=== PATIENT | female | born 1975 | race Caucasian/White ===

== ENCOUNTER 2016-05-01 13:15 | Outpatient (RCR) | payer SELFPAY ==
--- OUTSIDE RECORDS SUMMARY | 2016-03-31 13:38 | XMS REPORT | Continuity of Care Document ---
Author Author [facility] Organization [facility] Address Unknown Phone Unavailable Care Team Providers Care Parking Attendant Name Role Phone LOUISE COBOS MD PCP Insurance Providers Payer Name Policy Number Subscriber Name Relationship Unknown Ct Sloan Brandyn 18 Self / Same As Patient Advance Directives Directive Response Recorded Date/Time Advance Directives No 03/04/16 3:25pm Health Care Power of Asphalt Roller Operator No 03/04/16 3:25pm Organ Donor No 03/04/16 3:25pm Resuscitation Status Full Code 03/04/16 3:25pm Chief Complaint and Reason for Visit Chief Complaint General Problems/Pain Reason for Visit [id number] Problems Active Problems Medical Problem Onset Date Status Contact dermatitis Unknown Acute Hypokalemia Unknown Acute Hypomagnesemia Unknown Acute Left leg paresthesias Unknown Acute Low back strain Unknown Acute Lumbar radiculopathy, chronic Unknown Acute Postoperative seroma Unknown Acute Syncope Unknown Acute Syncope Unknown Acute Medications Current Home Medications Medication Dose Units Route Directions Days/Qty Instructions Start Date Aspirin 81 Mg 81 Mg Oral Daily 07/09/10 Rosuvastatin Calcium 20 Mg 20 Mg Oral Daily 07/09/10 Lamotrigine 150 Mg 150 Mg Oral Daily 07/09/10 Liraglutide 0.6 Mg/0.1 Ml 1.8 Mg Subcutaneously Bedtime 04/15/11 Citalopram Hydrobromide 20 Mg 1 Each Oral Twice A Day 01/25/12 Rabeprazole Sodium 20 Mg 20 Mg Oral Daily 01/25/12 Aripiprazole 2 Mg 5 Mg Oral Bedtime 09/15/12 Losartan Potassium 25 Mg 1 Each Oral Twice A Day 09/15/12 Hum Insulin Nph/Reg Insulin Hm 10 Ml 95 Units Sub-Q Twice A Day Pioglitazone Hcl 45 Mg 45 Mg Oral Daily 07/12/13 Celecoxib 200 Mg 20 Mg Oral Twice A Day 10/28/13 Orphenadrine Citrate 100 Mg 100 Mg Oral Every 4HRS as needed for Pain 10/28/13 Naproxen 500 Mg 1 Each Oral Twice A Day as needed for Pain 20 FOR PAIN 10/28/13 Hydrocodone Bit/Acetaminophen 1 Tab 1-2 Tab Oral Every 6 Hours as needed for Pain 5 10/28/13 Amoxicillin 500 Mg 28 11/12/15 Hydrocodone/Acetaminophen 1 Each 1 Each Oral Every 4HRS as needed for Pain 14 11/12/15 Tramadol Hcl 50 Mg 50 Mg Oral Every 6 Hours as needed for Pain 10 10/11 Past Home Medications Medication Directions Ordered Status Insulin Human Nph 10 Unit/0.1 Ml Susp, 10 Units Sub-Q Before Meals 07/09/10 Discontinued Sitagliptin Phosphate 100 Mg Tablet, 100 Mg Oral Daily 07/09/10 Discontinued Escitalopram Oxalate 20 Mg Tablet, 20 Mg Oral Daily 07/09/10 Discontinued Lisinopril 40 Mg Tablet, 40 Mg Oral Daily 07/09/10 Discontinued Topiramate 25 Mg Tab, 50 Mg Oral Daily 07/09/10 Discontinued [Trihexyphenidyl2 Mg] , 07/09/10 Discontinued Alprazolam 0.5 Mg Tablet, 0.25 Mg Oral As Needed 07/09/10 Discontinued Insulin Detemir 100 Unit/1 Ml Vial, 60 Units Sub-Q Twice A Day 07/09/10 Discontinued Trihexyphenidyl Hcl 2 Mg Tab, 1 Tab Oral Daily 04/15/11 Discontinued Insulin Aspart 10 Unit/0.1 Ml Vial, 25 Units Subcutaneously Before Meals 15/03 Discontinued Ranitidine Hcl 150 Mg Tablet, 1 Tab Oral Twice A Day 04/16/11 Discontinued Sucralfate 1 Gm Tab, 1 Gm Oral Three Times A Day 04/16/11 Discontinued Lamotrigine 150 Mg Tablet, 1 Each Oral Daily 01/25/12 Discontinued Acetaminophen/Hydrocodone Bitart 1 Each Tablet, 1 - 2 Each Oral Every 6 Hours as needed 01/25/12 Discontinued Naproxen 500 Mg Tablet, 1 Each Oral Twice A Day as needed 01/25/12 Discontinued Gabapentin 100 Mg Cap, 100 Mg Oral Bedtime 09/15/12 Discontinued Ciprofloxacin 500 Mg Tablet, 1 Tab Oral Twice A Day 09/15/12 Discontinued Hydrocodone Bit/Acetaminophen 1 Each Tablet, 1 Ea Oral Every 6 Hours as needed for Mild Pain 07/12/13 Discontinued Prednisone 20 Mg Tab, 40 Mg Oral Daily 07/12/13 Discontinued Social History Social History Problem Response Recorded Date/Time Alcohol Use Denies Use 06/06/2015 8:37pm Recreational Drug Use No 06/06/2015 8:37pm Recent Foreign Travel No 2016 3:25pm Recent Infectious Disease Exposure No 2016 3:25pm Hospitalization with Isolation Denies 2016 3:25pm Sexually Transmitted Disease No 2016 3:25pm HIV/AIDS No 2016 3:25pm Smoking Status Never a Smoker 2016 3:25pm Recent Hopitalizations No 2016 3:25pm Sexually Transmitted Disease No 2016 3:25pm Hospitalization with Isolation Denies 2016 3:25pm Query Response Start Date Stop Date Smoking Status Never a Smoker Hospital Discharge Instructions No hospital discharge instructions. Plan of Care Discharge Date 03/04/16 4:06pm Disposition 01 HOME, SELF-CARE Condition at Discharge Stable Instructions/Education Provided Paresthesias (DC) Prescriptions See Medication Section Referrals BEVERLY TAO - Primary Care Physician LOUISE COBOS MD - Primary Care Physician Additional Instructions/Education 1. Return to ER for any concerns 2. Follow-up with your doctor next week 3. All discharge instructions reviewed with patient and/or family. Voiced understanding. Functional Status No functional status results. Allergies, Adverse Reactions, Alerts Allergen Type Severity Reaction Status Last Updated prednisone ([id number]) Adverse Reaction Unknown RAISES BLOOD SUGAR Active 10/28/13 azithromycin ([id number]) Allergy Unknown Active 10/28/13 Immunizations No immunization records. Vital Signs Acute Vital Signs Vital Response Date/Time Temperature (Fahrenheit) 97.8 degrees F (97.6 - 99.5) 2016 4:02pm Temperature (Calculated Celsius) 36.65184 degrees C (36.4 - 37.5) 2016 4:02pm Temperature Source Temporal 2016 4:02pm Pulse Rate (adult) 108 bpm (60 - 90) 2016 4:02pm Respiratory Rate 20 bpm (12 - 24) 2016 4:02pm O2 Sat by Pulse Oximetry 94 % (88 - 100) 2016 4:02pm Blood Pressure 129/79 mm Hg 2016 4:02pm Blood Pressure Mean 96 mm Hg 2016 3:25pm Pain Numeric Pain Scale 10-Worst Possible Pain 2016 4:02pm Pain Numeric Pain Scale 10-Worst Possible Pain 2016 4:02pm Height (Feet) 5 feet 2016 3:25pm Height (Inches) 2 inches 2016 3:25pm Height (Calculated Centimeters) 157.894357 cm 2016 3:25pm Weight (Pounds) 200 pounds 2016 3:25pm Weight (Calculated Kilograms) 90.160602 kilograms 2016 3:25pm Capillary Refill Capillary Refill Less Than 3 Seconds 2016 3:25pm Height 5 ft 2 in Weight 200 lb Body Mass Index 36.6 kg/m^2 Results No known relevant diagnostic tests, laboratory data and/or discharge summary. Procedures Procedure Status Date Provider(s) Tracing only of electrocardiogram Active 03/04/16 SOCO JOAQUIN APRN Encounters Encounter Location Arrival/Admit Date Discharge/Depart Date Attending Provider Departed Emergency Room [facility] 03/04/16 3:06pm 03/04 4:06pm SOCO JOAQUIN APRN Recent Diagnosis
[~2016-05-01 13:15] MED LIST: ACHD5005 PO; ALPR.5T PO; AMOX500C2; ARIP2TAB3 PO; ASPI-892 PO; CLCX200C PO; CPR500T PO; CTLP20T PO; ESCI20TA2 PO; GBPN100C PO; HUM100VI4 SQ; HYDR-1231 PO; HYDR-3812 PO; HYDR-757 PO; INSASP10V SC; INSU100V11 SQ; INSU100V5 SQ; LAMO150T3 PO; LIRA0.6P SC; LISI40TA PO; LOSA25TA15 PO; NAPR-243 PO; ORPH100T PO; PIOG45TA PO; PRD20T PO; RABE20TA PO; RNT150T PO; ROSU20TA14 PO; SCR1T1 PO; SITA100T PO; TPR25T PO; TRAM-42 PO; TRH2T; TRH2T PO
== END 2016-05-01 14:15 | disposition home or self-care (01) ==
PROVIDERS: ATTEND Pain Medicine Pain Medicine
DX: M54.5 Low back pain (principal)

== ENCOUNTER → 2016-05-22 | Outpatient (CLI) | payer OTHER ==
[~2016-05-22] MED LIST changes: +CEFU500T63 PO
--- OUTSIDE RECORDS SUMMARY | 2016-05-22 10:24 | XMS REPORT | Continuity of Care Document ---
Author Author [facility] Organization [facility] Address Unknown Phone Unavailable Care Team Providers Care Internal Combustion Engineer Name Role Phone LOUISE COBOS MD PCP Insurance Providers Payer Name Policy Number Subscriber Name Relationship Unknown Ct Sloan Brandyn 18 Self / Same As Patient Advance Directives Directive Response Recorded Date/Time Advance Directives No 03/04/16 3:25pm Health Care Power of Paid Intern No 03/04/16 3:25pm Organ Donor No 03/04/16 3:25pm Resuscitation Status Full Code 03/04/16 3:25pm Chief Complaint and Reason for Visit Chief Complaint General Problems/Pain Reason for Visit [id number] Problems Active Problems Medical Problem Onset Date [...] Type Severity Reaction Status Last Updated prednisone ([id number]) Adverse Reaction Unknown RAISES BLOOD SUGAR Active 10/28/13 azithromycin ([id number]) Allergy Unknown Active 10/28/13 Immunizations No immunization records. Vital Signs Acute Vital Signs Vital Response Date/Time Temperature (Fahrenheit) 97.8 degrees F (97.6 - 99.5) 2016 4:02pm Temperature (Calculated Celsius) 36.05125 degrees C (36.4 - 37.5) 2016 4:02pm [...] 2 inches 2016 3:25pm Height (Calculated Centimeters) 157.748026 cm 2016 3:25pm Weight (Pounds) 200 pounds 2016 3:25pm Weight (Calculated Kilograms) 90.284817 kilograms 2016 3:25pm Capillary Refill Capillary Refill [...] Date Attending Provider Departed Emergency Room [facility] 03/04/16 3:06pm 03/04 4:06pm SOCO JOAQUIN APRN Recent Diagnosis
--- NOTE | 2016-05-22 19:01 | Diagnostic Imaging Report ---
Digital mammogram bilateral screening. This study was compared to the prior exams of 05/15/2015, 05/15/2014, and 03/28/2013. At this time, there are no current complaints. The current study was also evaluated with a Computer Aided Detection (CAD) system. FINDINGS: There are scattered fibroglandular densities in both breasts which could obscure a lesion. Overall, there does not appear to have been any significant change when compared to the prior exam. No primary or secondary sign of malignancy is noted. IMPRESSION: There is no radiographic evidence for malignancy. ACR BI-RADS Category 2: Benign findings. Result letter will be mailed to the patient. Note: At least 10% of breast cancer is not imaged by mammography. Dictated by: Dictated on workstation # [id number]
== END ==
LOC: RAD 10:19
PROVIDERS: ATTEND Nurse Practitioner Community Health
DX: Z12.31 Encounter for screening mammogram for malignant neoplasm of breast (principal)
CPT/HCPCS: 77067

== ENCOUNTER 2016-06-02 11:45 | Emergency (ER) | payer SELFPAY ==
[~2016-06-02] VITALS: Ht 157.5 cm; Wt 92.5 kg
[~2016-06-02 11:45] MED LIST changes: -CEFU500T63 PO
--- OUTSIDE RECORDS SUMMARY | 2016-06-02 11:51 | XMS REPORT | Continuity of Care Document ---
Author Author [facility] Organization [facility] Address Unknown Phone Unavailable Care Team Providers Care Panel Fitter Name Role Phone LOUISE COBOS MD PCP Insurance Providers Payer Name Policy Number Subscriber Name Relationship Unknown Ct Sloan Brandyn 18 Self / Same As Patient Advance Directives Directive Response Recorded Date/Time Advance Directives No 03/04/16 3:25pm Health Care Power of Talent Acquisition Coordinator No 03/04/16 3:25pm Organ Donor No 03/04/16 3:25pm Resuscitation Status Full Code 03/04/16 3:25pm Chief Complaint and Reason for Visit Chief Complaint General Problems/Pain Reason for Visit [id number] Problems Active Problems Medical Problem Onset Date [...] Type Severity Reaction Status Last Updated prednisone ([id number]) Adverse Reaction Unknown RAISES BLOOD SUGAR Active 10/28/13 azithromycin ([id number]) Allergy Unknown Active 10/28/13 Immunizations No immunization records. Vital Signs Acute Vital Signs Vital Response Date/Time Temperature (Fahrenheit) 97.8 degrees F (97.6 - 99.5) 2016 4:02pm Temperature (Calculated Celsius) 36.67387 degrees C (36.4 - 37.5) 2016 4:02pm [...] 2 inches 2016 3:25pm Height (Calculated Centimeters) 157.769088 cm 2016 3:25pm Weight (Pounds) 200 pounds 2016 3:25pm Weight (Calculated Kilograms) 90.368796 kilograms 2016 3:25pm Capillary Refill Capillary Refill [...] Date Attending Provider Departed Emergency Room [facility] 03/04/16 3:06pm 03/04 4:06pm SOCO JOAQUIN APRN Recent Diagnosis
--- NOTE | 2016-06-02 11:53 | ED Abdominal Pain ---
General Stated Complaint: UPPER ABD PAIN Source of Information: Patient Exam Limitations: No Limitations History of Present Illness Time Seen By Provider: 11:52 Initial Comments To ER with a three-day history of epigastric abdominal pain worsened by food. No vomiting. She's had some diarrhea. She does to have her gallbladder. She ate just about an hour prior to arrival here. No fevers or chills. Timing/Duration: 1-2 Days Severity/Quality: Sharp Location: Epigastric Radiation: No Radiation Activities at Onset: None Associated Symptoms: Denies Symptoms Allergies and Home Medications Allergies Coded Allergies: azithromycin (Unverified Allergy, Unknown, 10/28/13) CHEST PAIN prednisone (Unverified Adverse Reaction, Unknown, RAISES BLOOD SUGAR, ) Home Medications Amoxicillin 500 Mg Capsule #28 (Reported) Aripiprazole 2 Mg Tablet 5 MG PO HS (Reported) Aspirin 81 Mg Tabec 81 MG PO DAILY (Reported) Celecoxib 200 Mg Capsule 20 MG PO BID (Reported) Citalopram Hydrobromide 20 Mg Tablet 1 EACH PO BID (Reported) Hum Insulin Nph/Reg Insulin Hm 10 Ml Vial 95 UNITS SQ BID (Reported) Hydrocodone Bit/Acetaminophen 1 Tab Tablet #5 1-2 TAB PO Q6H PRN PRN PAIN Prescribed by: SOCO JOAQUIN on 10/28/13 1151 Hydrocodone/Acetaminophen 1 Each Tablet #14 1 EACH PO Q4H PRN PRN PAIN Prescribed by: ANGIE MAS on 11/12/15 1600 Lamotrigine 150 Mg Tablet 150 MG PO DAILY (Reported) Liraglutide 0.6 Mg/0.1 Ml Pen.injctr 1.8 MG SC HS (Reported) Losartan Potassium 25 Mg Tablet 1 EACH PO BID (Reported) Naproxen 500 Mg Tablet #20 1 EACH PO BID PRN PRN PAIN FOR PAIN Prescribed by: SOCO JOAQUIN on 10/28/13 1151 Orphenadrine Citrate 100 Mg Tablet.sa 100 MG PO Q4H PRN PRN PAIN (Reported) Pioglitazone Hcl 45 Mg Tablet 45 MG PO DAILY (Reported) Rabeprazole Sodium 20 Mg Tablet.dr 20 MG PO DAILY (Reported) Rosuvastatin Calcium 20 Mg Tablet 20 MG PO DAILY (Reported) Tramadol HCl 50 Mg Tablet #10 50 MG PO Q6H PRN PRN PAIN Prescribed by: SOCO JOAQUIN on 03/04/16 1541 Review of Systems Constitutional: see HPINo chills, No fever EENTM: No Symptoms Reported Respiratory: No Symptoms Reported Cardiovascular: No Symptoms Reported Gastrointestinal: See HPI Abdominal Pain Diarrhea Nausea Genitourinary: No Symptoms Reported Musculoskeletal: no symptoms reported Skin: no symptoms reported Psychiatric/Neurological: No Symptoms Reported Endocrine: No Symptoms Reported Hematologic/Lymphatic: No Symptoms Reported Past Qknfcit-Ievpvi-Dsyxkp Hx Patient Social History Recent Foreign Travel: No Contact w/Someone Who Travel: No Recent Hopitalizations: No Immunizations Up To Date Tetanus Booster (TDap): More than 5yrs PED Vaccines UTD: Yes Date of Pneumonia Vaccine: Mar 29, 2008 Date of Influenza Vaccine: Jan 27, 2014 Seasonal Allergies Seasonal Allergies: Yes Surgeries HX Surgeries: Yes (Carpal Tunnel bilat, HERNIA REPAIR) Surgeries: Section Respiratory Hx Respiratory Disorders: No Cardiovascular Hx Cardiac Disorders: Yes Cardiac Disorders: High Cholesterol Neurological Hx Neurological Disorders: Yes Neurological Disorders: Headaches /Migraines Reproductive System Hx Reproductive Disorders: No Sexually Transmitted Disease: No HIV/AIDS: No Genitourinary Hx Genitourinary Disorders: No ( ) Gastrointestinal Hx Gastrointestinal Disorders: Yes Gastrointestinal Disorders: Abdominal Hernia, Irritable Bowel Musculoskeletal Hx Musculoskeletal Disorders: Yes Musculoskeletal Disorders: Arthritis, Chronic Back Pain Endocrine Hx Endocrine Disorders: Yes (Type II, 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, Insulin dep HEENT HX ENT Disorders: No Cancer Hx Cancer: No Psychosocial Hx Psychiatric Problems: Yes Behavioral Health Disorders: Anxiety, Bipolar, Personality Disorder, Depression Integumentary HX Skin/Integumentary Disorder: No Blood Transfusions Hx Blood Disorders: No Adverse Reaction to a Blood Tr: No Family Medical History Significant Family History: No Pertinent Family Hx Family Medial History: Alcoholism 19 FATHER Arthritis 19 MOTHER Cataracts 19 MOTHER Diabetes mellitus 19 FATHER 19 MOTHER FH: stroke 19 FATHER Hypercholesterolemia 19 MOTHER Hypertension 19 MOTHER No Family History of: Cardiovascular disease Glaucoma Osteoporosis Prostate cancer Physical Exam Vital Signs VS - Last 72 Hours, by Label 06/02/16 11:53 Temp 98.5 Pulse 101 Resp 49 B/P 151/47 O2 Delivery Room Air Capillary Refill : General Appearance: WD/WN no apparent distress HEENT: PERRL/EOMI normal ENT inspection Neck: non-tender full range of motion Respiratory: normal breath sounds no respiratory distress no accessory muscle use Cardiovascular: regular rate, rhythm no murmur Gastrointestinal: normal bowel sounds soft tenderness (epigastric) Extremities: normal range of motion non-tender Neurologic/Psychiatric: alert normal mood/affect oriented x 3 Skin: normal color warm/dry Progress/Results/Core Measures Results/Orders Lab Results Laboratory Tests Test 06/02/16 11:55 06/02/16 12:40 Range/Units Urine Bacteria MODERATE H /HPF Urine Bilirubin NEGATIVE NEGATIVE Urine Casts NONE /LPF Urine Clarity VERY CLOUDY H Urine Color YELLOW Urine Crystals NONE /LPF Urine Culture Indicated YES Urine Glucose (UA) 4+ H NEGATIVE Urine Ketones 4+ H NEGATIVE Urine Leukocyte Esterase 2+ H NEGATIVE Urine Mucus NEGATIVE /LPF Urine Nitrite POSITIVE H NEGATIVE Urine Protein 2+ H NEGATIVE Urine RBC TNTC H /HPF Urine RBC (Auto) 5+ H NEGATIVE Urine Specific [place] 1.010 L 1.016-1.022 Urine Squamous Epithelial Cells NONE /HPF Urine Urobilinogen NORMAL NORMAL MG/DL Urine WBC 25-50 H /HPF Urine pH 5 5-9 Alanine Aminotransferase (ALT/SGPT) 22 0-55 U/L Albumin 3.9 3.2-4.5 G/DL Alkaline Phosphatase 106 40-136 U/L Amylase Level 13 L 25-125 U/L Anion Gap 14 5-14 MMOL/L Aspartate Amino Transf (AST/SGOT) 15 5-34 U/L BUN/Creatinine Ratio 15 Basophils # (Auto) 0.1 0.0-0.1 10^3/uL Basophils (%) (Auto) 1 0-10 % Blood Urea Nitrogen 11 7-18 MG/DL Calcium Level 9.0 8.5-10.1 MG/DL Carbon Dioxide Level 18 L 21-32 MMOL/L Chloride Level 104 98-107 MMOL/L Creatinine 0.72 0.60-1.30 MG/DL Eosinophils # (Auto) 0.2 0.0-0.3 10^3/uL Eosinophils (%) (Auto) 2 0-10 % Estimat Glomerular Filtration Rate > 60 Glucose Level 422 *H 70-105 MG/DL Hematocrit 42 35-52 % Hemoglobin 14.6 11.5-16.0 G/DL Lipase 41 8-78 U/L Lymphocytes # (Auto) 2.7 1.0-4.0 X 10^3 Lymphocytes (%) (Auto) 30 12-44 % Mean Corpuscular Hemoglobin 29 25-34 PG Mean Corpuscular Hemoglobin Concent 35 32-36 G/DL Mean Corpuscular Volume 82 80-99 FL Mean Platelet Volume 10.4 7.4-10.4 FL Monocytes # (Auto) 0.6 0.0-1.0 X 10^3 Monocytes (%) (Auto) 7 0-12 % Neutrophils # (Auto) 5.4 1.8-7.8 X 10^3 Neutrophils (%) (Auto) 60 42-75 % Platelet Count 249 130-400 10^3/uL Potassium Level 4.0 3.6-5.0 MMOL/L Red Blood Count 5.11 4.35-5.85 10^6/uL Red Cell Distribution Width 13.3 10.0-14.5 % Sodium Level 136 135-145 MMOL/L Total Bilirubin 0.3 0.1-1.0 MG/DL Total Protein 7.3 6.4-8.2 G/DL White Blood Count 9.0 4.3-11.0 10^3/uL My Orders Orders-SOCO JOAQUIN APRN Ua Culture If Indicated (06/02/16 11:51) Cbc With Automated Diff (06/02/16 11:51) Urine Bedside (06/02/16 11:51) Lipase (06/02/16 11:51) Amylase (06/02/16 11:51) Comprehensive Metabolic Panel (06/02/16 11:51) Antacid Suspension (Mylanta Suspension (06/02/16 12:00) Lidocaine 2% Viscous 15 Ml (Xylocaine Vi (06/02/16 12:00) Urine Culture (06/02/16 11:55) Medications Given in ED Current Medications Medications Dose Ordered Sig/Ernesto Route Start Time Stop Time Status Last Admin Dose Admin Al Hydrox/Mg Hydrox/Simethicone 30 ml ONCE ONCE PO 06/02/16 12:00 06/02/16 12:01 DC 06/02/16 12:41 30 ML Lidocaine HCl 15 ml ONCE ONCE PO 06/02/16 12:00 06/02/16 12:01 DC 06/02/16 12:41 15 ML Vital Signs/I&O Vital Sign - Last 12Hours 06/02/16 11:53 Temp 98.5 Pulse 101 Resp 49 B/P 151/47 O2 Delivery Room Air Departure Impression Impression: Primary Impression: Urinary tract infection Additional Impression: Hyperglycemia Disposition: 01 HOME, SELF-CARE Condition: Stable Departure-Patient Inst. Decision time for Depature: 13:12 Referrals: [facility] (PCP/Family) Primary Care Physician Patient Instructions: Hyperglycemia, Adult, Urinary Tract Infection, Adult (DC) Add. Discharge Instructions: 1. Drink plenty of fluids 2. Check your blood sugars frequently at home and use your insulin accordingly to your sliding scale 3. Antibiotics as directed Scripts Cefuroxime Axetil (Cefuroxime)500 Mg [id number] Mg PO BID #14 TAB Prov:SOCO JOAQUIN APRN 06/02/16 SOCO JOAQUIN APRN Jun 02, 2016 11:53
[2016-06-02] MEDS ORDERED: ANTACID SUSP 30 ML UDC (MYLANTA) PO ONE (12:00)
[2016-06-02] MEDS ORDERED: LIDOCAINE 2% VISCOUS 15 ML UDC PO ONE (12:00)
[2016-06-02 12:07] LABS: BILIRUBIN,URINE NEGATIVE (NEGATIVE); KETONES,URINE 4+ (NEGATIVE); LEUKOCYTE ESTERASE ,URINE 2+ (NEGATIVE); NITRITE,URINE POSITIVE (NEGATIVE); PH,URINE 5 (5-9); PROTEIN,URINE 2+ (NEGATIVE); UROBILINOGEN,URINE NORMAL (NORMAL)
[2016-06-02 12:18] LABS: WBC,URINE 25-50 /HPF
[2016-06-02 12:46] LABS: BASOPHILS # (AUTO) 0.1 10^3/uL (0.0-0.1); BASOPHILS % (AUTO) 1 % (0-10); EOSINOPHILS # (AUTO) 0.2 10^3/uL (0.0-0.3); EOSINOPHILS % (AUTO) 2 % (0-10); LYMPHOCYTES # (AUTO) 2.7 X 10^3 (1.0-4.0); LYMPHOCYTES % (AUTO) 30 % (12-44); MEAN CORPUSCULAR HEMOGLOBIN 29 PG (25-34); MEAN CORPUSCULAR HGB CONC 35 G/DL (32-36); MEAN CORPUSCULAR VOLUME 82 FL (80-99); MEAN PLATELET VOLUME 10.4 FL (7.4-10.4); MONOCYTES # (AUTO) 0.6 X 10^3 (0.0-1.0); MONOCYTES % (AUTO) 7 % (0-12); NEUTROPHILS # (AUTO) 5.4 X 10^3 (1.8-7.8); NEUTROPHILS % (AUTO) 60 % (42-75); PLATELET COUNT 249 10^3/uL (130-400); RED BLOOD COUNT 5.11 10^6/uL (4.35-5.85); RED CELL DISTRIBUTION WIDTH 13.3 % (10.0-14.5)
[2016-06-02 13:05] LABS: ALANINE AMINOTRANSFERASE 22 U/L (0-55); ALBUMIN 3.9 G/DL (3.2-4.5); AMYLASE 13 U/L (25-125); ANION GAP 14 MMOL/L (5-14); ASPARTATE AMINO TRANSFERASE 15 U/L (5-34); BILIRUBIN,TOTAL 0.3 MG/DL (0.1-1.0); BLOOD UREA NITROGEN 11 MG/DL (7-18); BUN/CREATININE RATIO 15; CARBON DIOXIDE 18 MMOL/L (21-32); CHLORIDE 104 MMOL/L (98-107); CREATININE SERUM 0.72 MG/DL (0.60-1.30); GFR ESTIMATED > 60; LIPASE 41 U/L (8-78); SODIUM 136 MMOL/L (135-145); TOTAL PROTEIN 7.3 G/DL (6.4-8.2)
[2016-06-02 13:10] LABS: GLUCOSE 422 MG/DL (70-105)
[2016-06-02] MEDS ORDERED: CEFU500T63 PO (13:13)
[2016-06-02] MEDS ORDERED: inSUlin (REGULAR) HUMAN 1 UNIT/0.01 ML (CHARGE PER UNIT) SC ONE (13:15)
[2016-06-02 13:30] VITALS: BP 151/47
== END 2016-06-02 13:30 | disposition home or self-care (01) ==
LOC: EDUNIT# 11:45 → ER 11:47
DX: N39.0 Urinary tract infection, site not specified (principal); E11.65 Type 2 diabetes mellitus with hyperglycemia; Z79.82 Long term (current) use of aspirin; Z79.4 Long term (current) use of insulin; Z79.84 Long term (current) use of oral hypoglycemic drugs; Z79.899 Other long term (current) drug therapy
CPT/HCPCS: 36415; 80053; 81000; 82150; 83690; 85025; 87088; 87186; 96372; 99283

== ENCOUNTER 2016-06-25 11:01 | Outpatient (RCR) | payer SELFPAY ==
--- OUTSIDE RECORDS SUMMARY | 2016-06-02 14:49 | XMS REPORT | Continuity of Care Document ---
Author Author [facility] Organization [facility] Address Unknown Phone Unavailable Care Team Providers Care Administrative Office Assistant Name Role Phone LOUISE COBOS MD PCP Insurance Providers Payer Name Policy Number Subscriber Name Relationship Unknown Ct Sloan Brandyn 18 Self / Same As Patient Advance Directives Directive Response Recorded Date/Time Advance Directives No 03/04/16 3:25pm Health Care Power of Cyber Workforce Developer And Manager No 03/04/16 3:25pm Organ Donor No 03/04/16 3:25pm Resuscitation Status Full Code 03/04/16 3:25pm Chief Complaint and Reason for Visit Chief Complaint General Problems/Pain Reason for Visit [id number] Problems Active Problems Medical Problem Onset Date [...] Type Severity Reaction Status Last Updated prednisone ([id number]) Adverse Reaction Unknown RAISES BLOOD SUGAR Active 10/28/13 azithromycin ([id number]) Allergy Unknown Active 10/28/13 Immunizations No immunization records. Vital Signs Acute Vital Signs Vital Response Date/Time Temperature (Fahrenheit) 97.8 degrees F (97.6 - 99.5) 2016 4:02pm Temperature (Calculated Celsius) 36.36078 degrees C (36.4 - 37.5) 2016 4:02pm [...] 2 inches 2016 3:25pm Height (Calculated Centimeters) 157.408084 cm 2016 3:25pm Weight (Pounds) 200 pounds 2016 3:25pm Weight (Calculated Kilograms) 90.255624 kilograms 2016 3:25pm Capillary Refill Capillary Refill [...] Date Attending Provider Departed Emergency Room [facility] 03/04/16 3:06pm 03/04 4:06pm SOCO JOAQUIN APRN Recent Diagnosis
[~2016-06-25 11:01] MED LIST changes: +CEFU500T63 PO
== END 2016-07-15 09:25 | disposition home or self-care (01) ==
PROVIDERS: ATTEND Pain Medicine Pain Medicine
DX: M54.5 Low back pain (principal)

== ENCOUNTER 2016-08-14 10:19 | Emergency (ER) | payer SELFPAY ==
[~2016-08-14] VITALS: Ht 157.5 cm; Wt 92.5 kg
[2016-08-14] MEDS ORDERED: CYCL5TAB PO (11:09)
[2016-08-14] MEDS ORDERED: SIMV40TA4 PO (11:09)
--- NOTE | 2016-08-14 11:16 | ED Back Pain ---
General Chief Complaint: Back Problems Stated Complaint: BACK/LEG PAIN Nursing Triage Note: HX OF BACK SURGERY. STATES SHE NEEDS A SECOND SURGERY DONE. C/O BILAT LOWER LEG PAIN ET PRESSURE ET PAIN TO LOWER BACK. PT. STATES SHE IS OUT OF MUSCLE RELAXERS Nursing Sepsis Screen: No Definite Risk Source of Information: Patient Exam Limitations: No Limitations History of Present Illness Time Seen by Provider: 11:16 Initial Comments To ER with reports of low back pain. She is out of her Zanaflex because she cannot afford it. Pain radiates to both legs. No loss of bowel or bladder control. No fevers or chills. No saddle anesthesia. She is out of her Flexeril as a substitute for Zanaflex as well. No recent injuries. Location: Lumbar Spine Timing/Duration: 1-2 Days Severity: Moderate Associated Symptoms: lower back pain Allergies and Home Medications Allergies Coded Allergies: azithromycin (Unverified Allergy, Unknown, 10/28/13) CHEST PAIN prednisone (Unverified Adverse Reaction, Unknown, RAISES BLOOD SUGAR, ) Home Medications Aspirin 81 Mg Tabec, 81 MG PO DAILY, (Reported) Citalopram Hydrobromide 20 Mg Tablet, 1 EACH PO BID, (Reported) Cyclobenzaprine HCl 5 Mg Tablet, 5 MG PO DAILY, (Reported) Hum Insulin Nph/Reg Insulin Hm 10 Ml Vial, 95 UNITS SQ BID, (Reported) Lamotrigine 150 Mg Tablet, 150 MG PO DAILY, (Reported) Liraglutide 0.6 Mg/0.1 Ml Pen.injctr, 1.8 MG SC HS, (Reported) Losartan Potassium 25 Mg Tablet, 1 EACH PO BID, (Reported) Pioglitazone Hcl 45 Mg Tablet, 45 MG PO DAILY, (Reported) Rabeprazole Sodium 20 Mg Tablet.dr, 20 MG PO DAILY, (Reported) Simvastatin 40 Mg Tablet, 2 TAB PO DAILY, (Reported) Constitutional: see HPI EENTM: see HPI Respiratory: no symptoms reported Cardiovascular: no symptoms reported Genitourinary: no symptoms reported Musculoskeletal: see HPI, back pain Skin: no symptoms reported Psychiatric/Neurological: No Symptoms Reported Past Fyjwpsp-Nwzibz-Bwkadx Hx Patient Social History Alcohol Use: Denies Use Recreational Drug Use: No Smoking Status: Never a Smoker 2nd Hand Smoke Exposure: No Recent Foreign Travel: No Contact w/Someone Who Travel: No Recent Infectious Disease Expo: No Recent Hopitalizations: No Immunizations Up To Date Tetanus Booster (TDap): More than 5yrs PED Vaccines UTD: Yes Date of Pneumonia Vaccine: Mar 29, 2008 Date of Influenza Vaccine: Jan 27, 2014 Seasonal Allergies Seasonal Allergies: Yes Surgeries HX Surgeries: Yes (Carpal Tunnel bilat, HERNIA REPAIR) Surgeries: Section, Orthopedic Respiratory Hx Respiratory Disorders: No Cardiovascular Hx Cardiac Disorders: Yes Cardiac Disorders: High Cholesterol Neurological Hx Neurological Disorders: Yes Neurological Disorders: Headaches /Migraines Reproductive System Hx Reproductive Disorders: No Sexually Transmitted Disease: No HIV/AIDS: No Genitourinary Hx Genitourinary Disorders: No ( ) Gastrointestinal Hx Gastrointestinal Disorders: Yes Gastrointestinal Disorders: Abdominal Hernia, Irritable Bowel Musculoskeletal Hx Musculoskeletal Disorders: Yes Musculoskeletal Disorders: Arthritis, Chronic Back Pain Endocrine Hx Endocrine Disorders: Yes (Type II, 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, Insulin dep HEENT HX ENT Disorders: No Cancer Hx Cancer: No Psychosocial Hx Psychiatric Problems: Yes Behavioral Health Disorders: Anxiety, Bipolar, Personality Disorder, Depression Integumentary HX Skin/Integumentary Disorder: No Blood Transfusions Hx Blood Disorders: No Adverse Reaction to a Blood Tr: No Family Medical History Significant Family History: No Pertinent Family Hx Family Medial History: Alcoholism 19 FATHER Arthritis 19 MOTHER Cataracts 19 MOTHER Diabetes mellitus 19 FATHER 19 MOTHER FH: stroke 19 FATHER Hypercholesterolemia 19 MOTHER Hypertension 19 MOTHER No Family History of: Cardiovascular disease Glaucoma Osteoporosis Prostate cancer Physical Exam Vital Signs Vital Sign - Last 12Hours 08/14/16 10:58 Temp 97.8 Pulse 89 Resp 20 B/P (MAP) 123/58 O2 Delivery Room Air Capillary Refill : Less Than 3 Seconds General Appearance: No Apparent Distress, WD/WN, Obese HEENT: PERRL/EOMI, TMs Normal Neck: Full Range of Motion, Normal Inspection Respiratory: Normal Breath Sounds, No Accessory Muscle Use, No Respiratory Distress Gastrointestinal: Normal Bowel Sounds, Non Tender, Soft Extremity: Normal Capillary Refill, Normal Inspection Neurologic/Psychiatric: Alert, Oriented x3, No Motor/Sensory Deficits Skin: Normal Color, Warm/Dry Progress/Results/Core Measures Results/Orders Vital Signs/I&O Vital Sign - Last 12Hours 08/14/16 10:58 Temp 97.8 Pulse 89 Resp 20 B/P (MAP) 123/58 O2 Delivery Room Air Blood Pressure Mean: 79 Departure Impression Impression: Primary Impression: Back pain Disposition: 01 HOME, SELF-CARE Condition: Stable Departure-Patient Inst. Decision time for Depature: 11:20 Referrals: [facility] (PCP) Primary Care Physician BEVERLY TAO (Family) Primary Care Physician Patient Instructions: MANAGING YOUR CHRONIC PAIN, Low Back Pain (DC) Add. Discharge Instructions: 1. Medication as directed 2. Follow-up with her regular doctor later this week 3. Return to ER for any worsening All discharge instructions reviewed with patient and/or family. Voiced understanding. Scripts Hydrocodone/Acetaminophen ([place] 5-325 Tablet) 1 Each Tablet 1 EACH PO Q6H Y for PAIN-MODERATE, #14 TAB Prov: SOCO JOAQUIN APRN 08/14/16 SOCO JOAQUIN APRN August 14, 2016 11:16
[2016-08-14] MEDS ORDERED: HYDR-757 PO (11:21)
[2016-08-14] MEDS ORDERED: KETOROLAC 60 MG/2 ML VIAL IM ONE (11:30)
[2016-08-14] MEDS ORDERED: ORPHENADRINE 60 MG/2 ML (NORFLEX) AMP IM ONE (11:30)
[2016-08-14 11:50] VITALS: BP 123/58
== END 2016-08-14 11:53 | disposition home or self-care (01) ==
LOC: ER 10:19
DX: M54.5 Low back pain (principal); E11.9 Type 2 diabetes mellitus without complications; Z79.4 Long term (current) use of insulin; Z79.84 Long term (current) use of oral hypoglycemic drugs; Z79.82 Long term (current) use of aspirin; Z79.899 Other long term (current) drug therapy
CPT/HCPCS: 96372; 99281

== ENCOUNTER 2016-10-28 08:54 | Outpatient (RCR) | payer OTHER ==
[~2016-10-28 08:54] MED LIST changes: +CYCL5TAB PO; +SIMV40TA4 PO
== END 2016-10-28 09:50 | disposition home or self-care (01) ==
PROVIDERS: ATTEND Nurse Practitioner Community Health
DX: M54.9 Dorsalgia, unspecified (principal)

== ENCOUNTER 2017-05-13 01:24 | Emergency (ER) | payer SELFPAY ==
[~2017-05-13] VITALS: Ht 157.5 cm; Wt 81.6 kg
[~2017-05-13 01:24] MED LIST changes: -HYDR-3812 PO
--- NOTE | 2017-05-13 01:35 | ED EENT ---
History of Present Illness General Chief Complaint: Foreign Body Stated Complaint: LEFT EAR PAIN-BUG WAS IN EAR-HURTS Nursing Triage Note: pt reports she felt a bug in her left ear prior to arrival. she believes the bug is gone at this time. Source: patient Exam Limitations: no limitations History of Present Illness Date Seen by Provider: May 13, 2017 Time Seen by Provider: 01:28 Initial Comments Patient believes she had a bug in her left ear that exited in route to the hospital. At the time of check in at the registration desk she was still having discomfort in the left ear and still wanted to be evaluated. By the time of my exam the pain was significantly improved. Allergies and Home Medications Allergies Coded Allergies: azithromycin (Unverified Allergy, Unknown, 10/28/13) CHEST PAIN prednisone (Unverified Adverse Reaction, Unknown, RAISES BLOOD SUGAR, ) Home Medications Aspirin 81 Mg Tabec, 81 MG PO DAILY, (Reported) Citalopram Hydrobromide 20 Mg Tablet, 1 EACH PO BID, (Reported) Hum Insulin Nph/Reg Insulin Hm 10 Ml Vial, 110 UNITS SQ BID, (Reported) Lamotrigine 150 Mg Tablet, 150 MG PO DAILY, (Reported) Liraglutide 0.6 Mg/0.1 Ml Pen.injctr, 1.8 MG SC HS, (Reported) Losartan Potassium 25 Mg Tablet, 1 EACH PO BID, (Reported) Pioglitazone Hcl 45 Mg Tablet, 45 MG PO DAILY, (Reported) Simvastatin 40 Mg Tablet, 2 TAB PO DAILY, (Reported) Review of Systems Constitutional: no symptoms reported Ears: See HPI Past Bddagho-Rtjayu-Jgwxgs Hx Patient Social History Alcohol Use: Denies Use Recreational Drug Use: No Smoking Status: Never a Smoker 2nd Hand Smoke Exposure: No Recent Foreign Travel: No Contact w/Someone Who Travel: No Recent Infectious Disease Expo: No Recent Hopitalizations: No Immunizations Up To Date Tetanus Booster (TDap): More than 5yrs PED Vaccines UTD: Yes Date of Pneumonia Vaccine: Mar 29, 2008 Date of Influenza Vaccine: Dec 28, 2016 Seasonal Allergies Seasonal Allergies: Yes Surgeries History of Surgeries: Yes (Carpal Tunnel bilat, HERNIA REPAIR, BACK SURGERY 2014) Surgeries: Section, Orthopedic Respiratory History of Respiratory Disorde: No Cardiovascular History of Cardiac Disorders: Yes Cardiac Disorders: High Cholesterol Neurological History of Neurological Disord: Yes Neurological Disorders: Headaches /Migraines Reproductive System Hx Reproductive Disorders: No Sexually Transmitted Disease: No HIV/AIDS: No Gastrointestinal History of Gastrointestinal Di: Yes Gastrointestinal Disorders: Abdominal Hernia, Irritable Bowel Musculoskeletal History of Musculoskeletal Dis: Yes Musculoskeletal Disorders: Arthritis, Chronic Back Pain Endocrine History of Endocrine Disorders: Yes (Type II, 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, Non-Insulin dep HEENT History of HEENT Disorders: No Cancer History of Cancer: No Psychosocial History of Psychiatric Problem: Yes Behavioral Health Disorders: Anxiety, Bipolar, Personality Disorder, Depression Integumentary History of Skin or Integumenta: No Blood Transfusions History of Blood Disorders: No Adverse Reaction to a Blood Tr: No Family Medical History Significant Family History: No Pertinent Family Hx Family Medial History: Alcoholism 19 FATHER Arthritis 19 MOTHER Cataracts 19 MOTHER Diabetes mellitus 19 FATHER 19 MOTHER FH: stroke 19 FATHER Hypercholesterolemia 19 MOTHER Hypertension 19 MOTHER No Family History of: Cardiovascular disease Glaucoma Osteoporosis Prostate cancer Physical Exam Vital Signs Vital Signs - First Documented 05/13/17 05/13/17 01:29 01:37 Temp 96.3 Pulse 107 Resp 16 B/P (MAP) 169/89 (115) Pulse Ox 98 O2 Delivery Room Air General Appearance: WD/WN, no apparent distress Ears: right ear TM normal, left ear other, bilateral ear auricle normal, bilateral ear canal normal Progress/Results/Core Measures Results/Orders Vital Signs/I&O Vital Sign - Last 12Hours 05/13/17 05/13/17 01:29 01:37 Temp 96.3 96.3 Pulse 107 107 Resp 16 16 B/P (MAP) 169/89 (115) 169/89 (115) Pulse Ox 98 O2 Delivery Room Air Blood Pressure Mean: 115 Departure Impression Impression: Primary Impression: Otalgia of left ear Disposition: 01 HOME, SELF-CARE Condition: Improved Departure-Patient Inst. Decision time for Depature: 01:32 Referrals: [facility] (PCP) Primary Care Physician BEVERLY TAO (Family) Primary Care Physician Patient Instructions: NO INSTRUCTIONS GIVEN Add. Discharge Instructions: Contact your primary care provider or return to care if symptoms worsen again. All discharge instructions reviewed with patient and/or family. Voiced understanding. DELMA PIMENTEL MD May 13, 2017 01:35
[2017-05-13 01:37] VITALS: BP 169/89
--- OUTSIDE RECORDS SUMMARY | 2017-05-14 09:49 | XMS REPORT ---
Author Author ParvinJALEESA DURAN [facility] Address [address] [place] [address] Care Team Providers Care Synthetic Resin Operator Name Role Phone giuliaJALEESA Roberts Unavailable PROBLEMS Type Condition ICD9-CM Code [id number] Code Onset Dates Condition Status SNOMED Code Problem Non compliance with medical treatment Z91.19 Active 8484135 Problem Irritable bowel syndrome with diarrhea K58.0 Active 416051146 Problem Diabetes E11.9 Active 576140616 Problem Acute bilateral low back pain with right-sided sciatica M54.41 Active 263623202 Problem Hyperlipidemia, unspecified E78.5 Active 07088265 Problem Bipolar 1 disorder F31.9 Active 937088497 Problem Lumbar radiculopathy M54.16 Active 173139152 Problem Type 2 diabetes mellitus with complication E11.8 Active 420150559 Problem superintendent terminal current 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 Z79.891 Active 182226569 Problem Eye exam normal Z01.00 Active 723616753 Problem Hyperlipidemia 272.4 Active 52332622 Problem Bipolar disorder, in partial remission, most recent episode manic F31.73 Active 64636069 Problem Post laminectomy syndrome M96.1 Active 87597048 Problem Extreme poverty Z59.5 Active 63184138 Problem Obesity, unspecified 278.00 Active 434886252 Problem 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 Active 91142463 ALLERGIES Substance Reaction Event Type Date Status Zithromax Chest pain Drug Allergy Mar, Active Prednisone elevated blood sugars Drug Allergy Mar, Active SOCIAL HISTORY No smoking Hx information available PLAN OF CARE Activity Details Follow Up 3 Months Reason: VITAL SIGNS Height 64 in 2016-04-09 Weight 202.6 lbs 2016-04-09 Heart Rate 104 bpm 2016-04-09 Respiratory Rate 20 2016-04-09 BMI 34.77 kg/m2 2016-04-09 Blood pressure systolic 132 mmHg 2016-04-09 Blood pressure diastolic 83 mmHg 2016-04-09 MEDICATIONS Medication Instructions Dosage Frequency Start Date End Date Duration Status Amaryl 2 MG Orally Once a day in AM 1 tablet with breakfast or the first main meal of the day Sep, 30 day(s) Active Aspirin Adult Low Strength 81 MG Orally Once a day 1 tablet 24h Active Victoza 18 MG/3ML Subcutaneous Once a day inject 0.3 ml 24h 90 days Active NovoLog Mix 70/30 Flexpen (70-30) 100 UNIT/ML Subcutaneous 2 times a day Inject 100 12h 90 days Active tizanidine 4 mg 1 tablet by Oral route every 6 hours Jan, Active Farxiga 5 MG Orally Once a day 1 tablet 24h Apr, Active Actos 45 MG Orally Once a day #60 samples 1 tablet Apr, Active Pseudoephedrine HCl 60 mg Orally every 6 hrs 1 tablet as needed 6h Feb, Active Celexa 40 MG Orally Once a day 1 tablet 24h May, Active Toprol XL 25 mg take 1 tablet by Oral route 1 time per day take at hs May, Active Simvastatin 40 MG Orally Once a day 2 tablets in the evening 24h Sep, 90 days Active Cyclobenzaprine HCl 10 MG Orally Three times a day 1 tablet 8h Active Lamictal 200 MG Orally Once a day 1 tablet 24h May, Active Ativan 0.5 MG Orally prn anxiety. 10/month 1 tablet as needed Sep, Active RESULTS No Results PROCEDURES Procedure Date Ordered Related Diagnosis Body Site Office Visit, Est Pt., Level 3 Apr 09, 2016 IMMUNIZATIONS No Known Immunizations
--- OUTSIDE RECORDS SUMMARY | 2017-05-14 09:50 | XMS REPORT ---
Author Author BEVERLY TAO [facility] Address [address] [place] [address] Care Team Providers Care Inspector Metal Fabricating Name Role Phone BEVERLY TAO Unavailable PROBLEMS Type Condition ICD9-CM Code [id number] Code Onset Dates Condition Status SNOMED Code Problem Non compliance with medical treatment Z91.19 Active 3415564 Problem Irritable bowel syndrome with diarrhea K58.0 Active 317747853 Problem Diabetes E11.9 Active 242211925 Problem Acute bilateral low back pain with right-sided sciatica M54.41 Active 253147545 Problem Hyperlipidemia, unspecified E78.5 Active 07518719 Problem Bipolar 1 disorder F31.9 Active 276070836 Problem Lumbar radiculopathy M54.16 Active 163745386 Problem Type 2 diabetes mellitus with complication E11.8 Active 461806405 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 Active 013214488 Problem Eye exam normal Z01.00 Active 168900819 Problem Hyperlipidemia 272.4 Active 32784589 Problem Bipolar disorder, in partial remission, most recent episode manic F31.73 Active 48337106 Problem Post laminectomy syndrome M96.1 Active 62283176 Problem Extreme poverty Z59.5 Active 67711936 Problem Obesity, unspecified 278.00 Active 943433032 Problem 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 Active 79822946 ALLERGIES No Information SOCIAL HISTORY Never Assessed PLAN OF CARE VITAL SIGNS MEDICATIONS Medication Instructions Dosage Frequency Start Date End Date Duration Status Test strips Contour test strips 2 times a day test blood sugar 12h Aug, Active RESULTS No Results PROCEDURES No Known procedures IMMUNIZATIONS No Known Immunizations MEDICAL (GENERAL) HISTORY Type Description Date Medical History Hypokalemia Medical History Hypomagnesium Medical History type II diabetes - uncontrolled Medical History hypertension Medical History umbilical hernia Medical History Arthritis Medical History back pain Medical History depression Medical History headache Medical History bipolar disorder Medical History anxiety Medical History MRSA Surgical History carpal tunnel surgery Surgical History section Surgical History back surgery Laminectomy - [facility] 10/04/2014 Surgical History Pain shot in lower back -Dr. Sheehan 08/23/15 Hospitalization History surgery
--- OUTSIDE RECORDS SUMMARY | 2017-05-14 09:50 | XMS REPORT ---
Author Author BEVERLY TAO Organization [facility] Address [address] [place] [address] Care Team Providers Care Open Hearth Furnace Operator Name Role Phone BEVERLY TAO Unavailable PROBLEMS Type Condition ICD9-CM Code [id number] Code Onset Dates Condition Status SNOMED Code Problem Non compliance with medical treatment Z91.19 Active 4427996 Problem Irritable bowel syndrome with diarrhea K58.0 Active 339202600 Problem Diabetes E11.9 Active 459614460 Problem Acute bilateral low back pain with right-sided sciatica M54.41 Active 256747283 Problem Hyperlipidemia, unspecified E78.5 Active 43709465 Problem Bipolar 1 disorder F31.9 Active 886052789 Problem Lumbar radiculopathy M54.16 Active 145382895 Problem Type 2 diabetes mellitus with complication E11.8 Active 444943642 Problem 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 Z79.891 Active 806582763 Problem Eye exam normal Z01.00 Active 717782319 Problem Hyperlipidemia 272.4 Active 28363728 Problem Bipolar disorder, in partial remission, most recent episode manic F31.73 Active 38668078 Problem Post laminectomy syndrome M96.1 Active 03492794 Problem Extreme poverty Z59.5 Active 23773868 Problem Obesity, unspecified 278.00 Active 451839679 Problem 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
--- OUTSIDE RECORDS SUMMARY | 2017-05-14 09:51 | XMS REPORT ---
Author Author ARIAN US Organization [facility] Address [address] [place] [address] Care Team Providers Care Cullet Crusher And Washer Name Role Phone ARIAN US Unavailable PROBLEMS Type Condition ICD9-CM Code FZG14-EX Code Onset Dates Condition Status SNOMED Code Problem Non compliance with medical treatment Z91.19 Active 3968715 Problem Irritable bowel syndrome with diarrhea K58.0 Active 268233724 Problem Diabetes E11.9 Active 818742268 Problem Acute bilateral low back pain with right-sided sciatica M54.41 Active 139314679 Problem Hyperlipidemia, unspecified E78.5 Active 01689941 Problem Bipolar 1 disorder F31.9 Active 845520471 Problem Lumbar radiculopathy M54.16 Active 093064434 Problem Type 2 diabetes mellitus with complication E11.8 Active 849570433 Problem 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 Z79.891 Active 944776936 Problem Eye exam normal Z01.00 Active 757966632 Problem Hyperlipidemia 272.4 Active 83409235 Problem Bipolar disorder, in partial remission, most recent episode manic F31.73 Active 25881861 Problem Post laminectomy syndrome M96.1 Active 90781451 Problem Extreme poverty Z59.5 Active 63812458 Problem Obesity, unspecified 278.00 Active 547743068 Problem 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
--- OUTSIDE RECORDS SUMMARY | 2017-05-14 09:51 | XMS REPORT ---
Author Author BECKY HURTADO Organization [facility] Address [address] [place] [address] Care Team Providers Care Photoengraver Name Role Phone BECKY HURTADO Unavailable PROBLEMS Type Condition ICD9-CM Code SYH20-JO Code Onset Dates Condition Status SNOMED Code Problem Non compliance with medical treatment Z91.19 Active 6822771 Problem Irritable bowel syndrome with diarrhea K58.0 Active 199093916 Problem Diabetes E11.9 Active 118807209 Problem Acute bilateral low back pain with right-sided sciatica M54.41 Active 105965425 Problem Hyperlipidemia, unspecified E78.5 Active 14790113 Problem Bipolar 1 disorder F31.9 Active 372338507 Problem Lumbar radiculopathy M54.16 Active 278544986 Problem Type 2 diabetes mellitus with complication E11.8 Active 586528571 Problem 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 Active 366137308 Problem Eye exam normal Z01.00 Active 672640169 Problem Hyperlipidemia 272.4 Active 92866552 Problem Bipolar disorder, in partial remission, most recent episode manic F31.73 Active 29990605 Problem Post laminectomy syndrome M96.1 Active 04321449 Problem Extreme poverty Z59.5 Active 82099105 Problem Obesity, unspecified 278.00 Active 331245295 Problem 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
--- OUTSIDE RECORDS SUMMARY | 2017-05-14 09:51 | XMS REPORT ---
Author Author HUNG HELTON Organization [facility] Address [address] [place] [address] Care Team Providers Care Publishing Systems Analyst Name Role Phone HUNG HELTON Unavailable PROBLEMS Type Condition ICD9-CM Code [id number] Code Onset Dates Condition Status SNOMED Code Problem Non compliance with medical treatment Z91.19 Active 7556349 Problem Irritable bowel syndrome with diarrhea K58.0 Active 639879542 Problem Diabetes E11.9 Active 173696330 Problem Acute bilateral low back pain with right-sided sciatica M54.41 Active 036375053 Problem Hyperlipidemia, unspecified E78.5 Active 21586635 Problem Bipolar 1 disorder F31.9 Active 665120252 Problem Lumbar radiculopathy M54.16 Active 916084006 Problem Type 2 diabetes mellitus with complication E11.8 Active 479285845 Problem group home current 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 Z79.891 Active 036841102 Problem Eye exam normal Z01.00 Active 290837733 Problem Hyperlipidemia 272.4 Active 50146031 Problem Bipolar disorder, in partial remission, most recent episode manic F31.73 Active 37728630 Problem Post laminectomy syndrome M96.1 Active 15674352 Problem Extreme poverty Z59.5 Active 81957721 Problem Obesity, unspecified 278.00 Active 831468571 Problem 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 Active 47759878 ALLERGIES Substance Reaction Event Type Date Status Zithromax Chest pain Drug Allergy Feb, Active Prednisone elevated blood sugars Drug Allergy Feb, Active SOCIAL HISTORY No smoking Hx information available PLAN OF CARE Activity Details Follow Up Recall Reason: VITAL SIGNS Height 64 in 2016-03-18 Blood pressure systolic 131 mmHg 2016-03-18 Blood pressure diastolic 78 mmHg 2016-03-18 MEDICATIONS Medication Instructions Dosage Frequency Start Date End Date Duration Status tizanidine 4 mg 1 tablet by Oral route every 6 hours Jan, Active Farxiga 5 MG Orally Once a day 1 tablet 24h Apr, Active Toprol XL 25 mg take 1 tablet by Oral route 1 time per day take at hs 10 May, 2013 Active Aspirin Adult Low Strength 81 MG Orally Once a day 1 tablet 24h Active Ativan 0.5 MG Orally prn anxiety. 10/month 1 tablet as needed Sep, Active Victoza 18 MG/3ML Subcutaneous Once a day inject 0.3 ml 24h 90 days Active NovoLog Mix 70/30 Flexpen (70-30) 100 UNIT/ML Subcutaneous 2 times a day Inject 100 12h 90 days Active Lamictal 200 MG Orally Once a day 1 tablet 24h May, Active Abilify 10 MG Orally Once a day 1 tablet 24h Sep, Active Simvastatin 40 MG Orally Once a day 2 tablets in the evening 24h Sep, 90 days Active Amaryl 2 MG Orally Once a day in AM 1 tablet with breakfast or the first main meal of the day Sep, 30 day(s) Active Celexa 40 MG Orally Once a day 1 tablet 24h May, Active Abreva 10 % Externally 5 times per day at earliest signs of infection as directed Feb, 10 days Active Actos 45 MG Orally Once a day #60 samples 1 tablet Apr, Active RESULTS No Results PROCEDURES Procedure Date Ordered Related Diagnosis Body Site EXTRAC ERUPTED TOOTH/EXPOSED ROOT Mar 18, 2016 EXTRAC ERUPTED TOOTH/EXPOSED ROOT Mar 18, 2016 EXTRAC ERUPTED TOOTH/EXPOSED ROOT Mar 18, 2016 IMMUNIZATIONS No Known Immunizations
--- OUTSIDE RECORDS SUMMARY | 2017-05-14 09:52 | XMS REPORT ---
Author Author ARIAN US [facility] Address [address] [place] [address] Care Team Providers Care Transmission Mechanic Name Role Phone ARIAN US Unavailable PROBLEMS Type Condition ICD9-CM Code [id number] Code Onset Dates Condition Status SNOMED Code Problem Non compliance with medical treatment Z91.19 Active 8478907 Problem Irritable bowel syndrome with diarrhea K58.0 Active 731078277 Problem Diabetes E11.9 Active 187584616 Problem Acute bilateral low back pain with right-sided sciatica M54.41 Active 369637010 Problem Hyperlipidemia, unspecified E78.5 Active 43912507 Problem Bipolar 1 disorder F31.9 Active 613621683 Problem Lumbar radiculopathy M54.16 Active 699251676 Problem Type 2 diabetes mellitus with complication E11.8 Active 777678231 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 Active 057543621 Problem Eye exam normal Z01.00 Active 344059782 Problem Hyperlipidemia 272.4 Active 74464492 Problem Bipolar disorder, in partial remission, most recent episode manic F31.73 Active 29215734 Problem Post laminectomy syndrome M96.1 Active 74578860 Problem Extreme poverty Z59.5 Active 94749674 Problem Obesity, unspecified 278.00 Active 203805167 Problem 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
--- OUTSIDE RECORDS SUMMARY | 2017-05-14 09:52 | XMS REPORT ---
Author Author BEVERLY TAO [facility] Address [address] [place] [address] Care Team Providers Care Rheologist Name Role Phone BEVERLY TAO Unavailable PROBLEMS Type Condition ICD9-CM Code [id number] Code Onset Dates Condition Status SNOMED Code Problem Non compliance with medical treatment Z91.19 Active 0410384 Problem Irritable bowel syndrome with diarrhea K58.0 Active 029210515 Problem Diabetes E11.9 Active 773930221 Problem Acute bilateral low back pain with right-sided sciatica M54.41 Active 749881939 Problem Hyperlipidemia, unspecified E78.5 Active 21929337 Problem Bipolar 1 disorder F31.9 Active 782213590 Problem Lumbar radiculopathy M54.16 Active 620609690 Problem Type 2 diabetes mellitus with complication E11.8 Active 464385582 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 Active 820091230 Problem Eye exam normal Z01.00 Active 249276896 Problem Hyperlipidemia 272.4 Active 70397682 Problem Bipolar disorder, in partial remission, most recent episode manic F31.73 Active 70823449 Problem Post laminectomy syndrome M96.1 Active 22790145 Problem Extreme poverty Z59.5 Active 58472496 Problem Obesity, unspecified 278.00 Active 064364472 Problem 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 Active 03031717 ALLERGIES Substance Reaction Event Type Date Status Zithromax Chest pain Drug Allergy Apr, Active Prednisone elevated blood sugars Drug Allergy Apr, Active SOCIAL HISTORY Never Assessed PLAN OF CARE Activity Details Follow Up prn Reason: VITAL SIGNS Height 64 in 2016-05-11 Weight 203.6 lbs 2016-05-11 Temperature 97.1 degrees Fahrenheit 2016-05-11 Heart Rate 96 bpm 2016-05-11 Respiratory Rate 18 2016-05-11 BMI 34.94 kg/m2 2016-05-11 Blood pressure systolic 126 mmHg 2016-05-11 Blood pressure diastolic 74 mmHg 2016-05-11 MEDICATIONS Medication Instructions Dosage Frequency Start Date End Date Duration Status Aspirin Adult Low Strength 81 MG Orally Once a day 1 tablet 24h Active Victoza 18 MG/3ML Subcutaneous Once a day inject 0.3 ml 24h 90 days Active Simvastatin 40 MG Orally Once a day 2 tablets in the evening 24h Sep, 90 days Active Toprol XL 25 mg take 1 tablet by Oral route 1 time per day take at hs May, Active Amaryl 2 MG Orally Once a day in AM 1 tablet with breakfast or the first main meal of the day Sep, 30 day(s) Active Ativan 0.5 MG Orally prn anxiety. 10/month 1 tablet as needed Sep, Active Pseudoephedrine HCl 60 mg Orally every 6 hrs 1 tablet as needed 6h Feb, Active Actos 45 MG Orally Once a day #60 samples 1 tablet Apr, Active NovoLog Mix 70/30 Flexpen (70-30) 100 UNIT/ML Subcutaneous 2 times a day Inject 100 12h 90 days Active Farxiga 5 MG Orally Once a day 1 tablet 24h Apr, Active Cyclobenzaprine HCl 10 MG Orally Three times a day 1 tablet 8h Active tizanidine 4 mg 1 tablet by Oral route every 6 hours Jan, Active Lamictal 200 MG Orally Once a day 1 tablet 24h May, Active Celexa 40 MG Orally Once a day 1 tablet 24h May, Active RESULTS Name Result Date Reference Range Mammogram, Bilateral Screening 2016-05-22 PROCEDURES No Known procedures IMMUNIZATIONS No Known [...]
--- OUTSIDE RECORDS SUMMARY | 2017-05-14 09:52 | XMS REPORT ---
Author Author BEVERLY TAO [facility] Address [address] [place] [address] Care Team Providers Care Transportation Assistant Name Role Phone BEVERLY TAO Unavailable PROBLEMS Type Condition ICD9-CM Code RMC09-GC Code Onset Dates Condition Status SNOMED Code Problem Non compliance with medical treatment Z91.19 Active 6060972 Problem Irritable bowel syndrome with diarrhea K58.0 Active 678479164 Problem Diabetes E11.9 Active 890250949 Problem Acute bilateral low back pain with right-sided sciatica M54.41 Active 284971663 Problem Hyperlipidemia, unspecified E78.5 Active 40107343 Problem Bipolar 1 disorder F31.9 Active 813284561 Problem Lumbar radiculopathy M54.16 Active 483795904 Problem Type 2 diabetes mellitus with complication E11.8 Active 814720918 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 Active 013357691 Problem Eye exam normal Z01.00 Active 120663717 Problem Hyperlipidemia 272.4 Active 73183866 Problem Bipolar disorder, in partial remission, most recent episode manic F31.73 Active 08704862 Problem Post laminectomy syndrome M96.1 Active 79871899 Problem Extreme poverty Z59.5 Active 50252515 Problem Obesity, unspecified 278.00 Active 694341979 Problem 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
--- OUTSIDE RECORDS SUMMARY | 2017-05-14 09:52 | XMS REPORT ---
Author Author BEVERLY TAO [facility] Address [address] [place] [address] Care Team Providers Care Skill Training Program Coordinator Name Role Phone BEVERLY TAO Unavailable PROBLEMS Type Condition ICD9-CM Code [id number] Code Onset Dates Condition Status SNOMED Code Problem Non compliance with medical treatment Z91.19 Active 8218503 Problem Irritable bowel syndrome with diarrhea K58.0 Active 701261421 Problem Diabetes E11.9 Active 825882139 Problem Acute bilateral low back pain with right-sided sciatica M54.41 Active 610406870 Problem Hyperlipidemia, unspecified E78.5 Active 44747897 Problem Bipolar 1 disorder F31.9 Active 873252777 Problem Lumbar radiculopathy M54.16 Active 669601656 Problem Type 2 diabetes mellitus with complication E11.8 Active 294637578 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 Active 241151971 Problem Eye exam normal Z01.00 Active 442717076 Problem Hyperlipidemia 272.4 Active 12764252 Problem Bipolar disorder, in partial remission, most recent episode manic F31.73 Active 76981366 Problem Post laminectomy syndrome M96.1 Active 64378914 Problem Extreme poverty Z59.5 Active 19441646 Problem Obesity, unspecified 278.00 Active 528836782 Problem 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
--- OUTSIDE RECORDS SUMMARY | 2017-05-14 09:53 | XMS REPORT ---
Author Author LEONCIO Tuttle Organization [facility] Address Unknown Care Team Providers Care Orthopedic Rn Name Role Phone giuliaGiovani LEONCIO Unavailable PROBLEMS Type Condition ICD9-CM Code [id number] Code Onset Dates Condition Status SNOMED Code Problem Non compliance with medical treatment Z91.19 Active 2620559 Problem Diabetes E11.9 Active 527399132 Problem Irritable bowel syndrome with diarrhea K58.0 Active 477667252 Problem Acute bilateral low back pain with right-sided sciatica M54.41 Active 655315704 Problem Hyperlipidemia, unspecified E78.5 Active 68115307 Problem Bipolar 1 disorder F31.9 Active 563857780 Problem Lumbar radiculopathy M54.16 Active 935585164 Problem Type 2 diabetes mellitus with complication E11.8 Active 512742052 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 Z79.891 Active 414578432 Problem Eye exam normal Z01.00 Active 425757684 Problem Hyperlipidemia 272.4 Active 57662613 Problem Bipolar disorder, in partial remission, most recent episode manic F31.73 Active 49479372 Problem Post laminectomy syndrome M96.1 Active 81288889 Problem Extreme poverty Z59.5 Active 52016108 Problem Obesity, unspecified 278.00 Active 460705443 Problem 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
--- OUTSIDE RECORDS SUMMARY | 2017-05-14 09:53 | XMS REPORT ---
Author Author BEVERLY TAO [facility] Address [address] [place] [address] Care Team Providers Care Coin Machine Operator Name Role Phone BEVERLY TAO Unavailable PROBLEMS Type Condition ICD9-CM Code KAN98-LE Code Onset Dates Condition Status SNOMED Code Problem Non compliance with medical treatment Z91.19 Active 0232175 Problem Irritable bowel syndrome with diarrhea K58.0 Active 973177305 Problem Diabetes E11.9 Active 929039823 Problem Acute bilateral low back pain with right-sided sciatica M54.41 Active 581536716 Problem Hyperlipidemia, unspecified E78.5 Active 22659570 Problem Bipolar 1 disorder F31.9 Active 069051124 Problem Lumbar radiculopathy M54.16 Active 260673052 Problem Type 2 diabetes mellitus with complication E11.8 Active 440274374 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 903583592 Problem Eye exam normal Z01.00 Active 153025614 Problem Hyperlipidemia 272.4 Active 49547929 Problem Bipolar disorder, in partial remission, most recent episode manic F31.73 Active 41307960 Problem Post laminectomy syndrome M96.1 Active 47502331 Problem Extreme poverty Z59.5 Active 62610981 Problem Obesity, unspecified 278.00 Active 731785878 Problem 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 Active 24125251 ALLERGIES Substance Reaction Event Type Date Status Zithromax Chest pain Drug Allergy May, Active Prednisone elevated blood sugars Drug Allergy May, Active SOCIAL HISTORY Never Assessed PLAN OF CARE Activity Details Follow Up 4 Weeks Reason:DM VITAL SIGNS Height 64 in 2016-06-17 Weight 200.3 lbs 2016-06-17 Temperature 97.5 degrees Fahrenheit 2016-06-17 Heart Rate 100 bpm 2016-06-17 Respiratory Rate 20 2016-06-17 BMI 34.38 kg/m2 2016-06-17 Blood pressure systolic 142 mmHg 2016-06-17 Blood pressure diastolic 80 mmHg 2016-06-17 MEDICATIONS Medication Instructions Dosage Frequency Start Date End Date Duration Status Ativan 0.5 MG Orally prn anxiety. 10/month 1 tablet as needed Sep, Active Victoza 18 MG/3ML Subcutaneous Once a day inject 0.3 ml 24h 90 days Active NovoLog Mix 70/30 Flexpen (70-30) 100 UNIT/ML Subcutaneous 2 times a day Inject 110 12h Active Aspirin Adult Low Strength 81 MG Orally Once a day 1 tablet 24h Active Actos 45 MG Orally Once a day #60 samples 1 tablet Apr, Active Toprol XL 25 mg take 1 tablet by Oral route 1 time per day take at hs May, Active tizanidine 4 mg 1 tablet by Oral route every 6 hours Jan, Active Celexa 40 MG Orally Once a day 1 tablet 24h May, Active Lamictal 200 MG Orally Once a day 1 tablet 24h May, Active Simvastatin 40 MG Orally Once a day 2 tablets in the evening 24h Sep, 90 days Active Cyclobenzaprine HCl 10 MG Orally Three times a day 1 tablet 8h Active Amaryl 2 MG Orally Once a day in AM 1 tablet with breakfast or the first main meal of the day Sep, 30 day(s) Active Farxiga 5 MG Orally Once a day 1 tablet 24h Apr, Active RESULTS Name Result Date Reference Range A1C (IN HOUSE) 2016-06-17 A1C IN HOUSE 11.8 4.3 - 5.6 % Previous A1c 11.9 Lot [id number] Exp date BACTERIAL VAGINOSIS (IN HOUSE) 2016-06-17 RESULTS Negative Control + Lot # [id number] Exp date 12/2016 PAP TEST W/ HPV REGARDLESS 2016-06-17 DIAGNOSIS: Specimen adequacy: Clinician provided ICD10: Performed by: . . Note: HPV, high-risk Negative Negative PDF Report 2016-06-17 PDF Report1 LCLS PROCEDURES Procedure Date Ordered Result Body Site GLYCATED HEMOGLOBIN TEST June 17, 2016 BLUE VAG, DNA, DIR PROBE June 17, 2016 SPECIMEN HANDLING June 17, 2016 IMMUNIZATIONS No Known Immunizations MEDICAL (GENERAL) [...]
--- OUTSIDE RECORDS SUMMARY | 2017-05-14 09:53 | XMS REPORT ---
Author Author LOUISE COBOS [facility] Address [address] [place] [address] Care Team Providers Care Tunnel Man Name Role Phone LOUISE COBOS Unavailable PROBLEMS Type Condition ICD9-CM Code [id number] Code Onset Dates Condition Status SNOMED Code Problem Non compliance with medical treatment Z91.19 Active 9355074 Problem Irritable bowel syndrome with diarrhea K58.0 Active 662013316 Problem Diabetes E11.9 Active 160084965 Problem Acute bilateral low back pain with right-sided sciatica M54.41 Active 614076254 Problem Hyperlipidemia, unspecified E78.5 Active 15514309 Problem Bipolar 1 disorder F31.9 Active 786405487 Problem Lumbar radiculopathy M54.16 Active 634003332 Problem Type 2 diabetes mellitus with complication E11.8 Active 497326253 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 Z79.891 Active 939570474 Problem Eye exam normal Z01.00 Active 954703198 Problem Hyperlipidemia 272.4 Active 71551870 Problem Bipolar disorder, in partial remission, most recent episode manic F31.73 Active 94452711 Problem Post laminectomy syndrome M96.1 Active 43632146 Problem Extreme poverty Z59.5 Active 32407294 Problem Obesity, unspecified 278.00 Active 153514834 Problem 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 Active 54571116 ALLERGIES Substance Reaction Event Type Date Status Zithromax Chest pain Drug Allergy July, Active Prednisone elevated blood sugars Drug Allergy July, Active SOCIAL HISTORY Never Assessed PLAN OF CARE Activity Details Follow Up Regular appt Reason: VITAL SIGNS Height 64 in 2016-08-20 Weight 193 lbs 2016-08-20 Temperature 98.0 degrees Fahrenheit 2016-08-20 Heart Rate 88 bpm 2016-08-20 Respiratory Rate 20 2016-08-20 BMI 33.12 kg/m2 2016-08-20 Blood pressure systolic 122 mmHg 2016-08-20 Blood pressure diastolic 82 mmHg 2016-08-20 MEDICATIONS Medication Instructions Dosage Frequency Start Date End Date Duration Status Farxiga 5 MG Orally Once a day 1 tablet 24h Apr, Active Lamictal 200 MG Orally Once a day 1 tablet 24h May, Active Amaryl 2 MG Orally Once a day in AM 1 tablet with breakfast or the first main meal of the day Sep, 30 day(s) Active Simvastatin 40 MG Orally Once a day 2 tablets in the evening 24h Sep, 90 days Active Ativan 0.5 MG Orally prn anxiety. 10/month 1 tablet as needed Sep, Active tizanidine 4 mg 1 tablet by Oral route every 6 hours Jan, Active Toprol XL 25 mg take 1 tablet by Oral route 1 time per day take at hs May, Active Victoza 18 MG/3ML Subcutaneous Once a day inject 0.3 ml 24h 90 days Active NovoLog Mix 70/30 Flexpen (70-30) 100 UNIT/ML Subcutaneous 2 times a day Inject 110 12h Active Celexa 40 MG Orally Once a day 1 tablet 24h May, Active Cyclobenzaprine HCl 10 mg Orally Three times a day 1 tablet 8h Aug, 10 days Active Actos 45 MG Orally Once a day #60 samples 1 tablet Apr, Active Naprosyn 500 mg Orally 2 times a daypc 1 July, Sep, 30 days Active Aspirin Adult Low Strength 81 MG Orally Once a day 1 tablet 24h Active RESULTS No Results PROCEDURES No Known [...]
--- OUTSIDE RECORDS SUMMARY | 2017-05-14 09:53 | XMS REPORT ---
Author Author BEVERLY TAO [facility] Address [address] [place] [address] Care Team Providers Care Human Services Supervisor Name Role Phone BEVERLY TAO Unavailable PROBLEMS Type Condition ICD9-CM Code QEZ85-UE Code Onset Dates Condition Status SNOMED Code Problem Non compliance with medical treatment Z91.19 Active 1531780 Problem Diabetes E11.9 Active 853851332 Problem Irritable bowel syndrome with diarrhea K58.0 Active 798163442 Problem Acute bilateral low back pain with right-sided sciatica M54.41 Active 443431058 Problem Hyperlipidemia, unspecified E78.5 Active 02369956 Problem Bipolar 1 disorder F31.9 Active 671016533 Problem Lumbar radiculopathy M54.16 Active 123943853 Problem Type 2 diabetes mellitus with complication E11.8 Active 776936545 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 Active 173785034 Problem Eye exam normal Z01.00 Active 508998930 Problem Hyperlipidemia 272.4 Active 94336183 Problem Bipolar disorder, in partial remission, most recent episode manic F31.73 Active 67935963 Problem Post laminectomy syndrome M96.1 Active 79118080 Problem Extreme poverty Z59.5 Active 51916769 Problem Obesity, unspecified 278.00 Active 298259323 Problem 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 Active 14858956 ALLERGIES Substance Reaction Event Type Date Status Zithromax Chest pain Drug Allergy Feb, Active Prednisone elevated blood sugars Drug Allergy Feb, Active SOCIAL HISTORY No smoking Hx information available PLAN OF CARE Activity Details Follow Up prn Reason: VITAL SIGNS Height 64 in 2016-03-10 Weight 200.4 lbs 2016-03-10 Temperature 98.4 degrees Fahrenheit 2016-03-10 Heart Rate 82 bpm 2016-03-10 Respiratory Rate 20 2016-03-10 BMI 34.39 kg/m2 2016-03-10 Blood pressure systolic 122 mmHg 2016-03-10 Blood pressure diastolic 82 mmHg 2016-03-10 MEDICATIONS Medication Instructions Dosage Frequency Start Date End Date Duration Status Abreva 10 % Externally 5 times per day at earliest signs of infection as directed Feb, 10 days Active Abilify 10 MG Orally Once a day 1 tablet 24h Sep, Active Aspirin Adult Low Strength 81 MG Orally Once a day 1 tablet 24h Active tizanidine 4 mg 1 tablet by Oral route every 6 hours Jan, Active Ativan 0.5 MG Orally prn anxiety. 10/month 1 tablet as needed Sep, Active NovoLog Mix 70/30 Flexpen (70-30) 100 [...] of the day Sep, 30 day(s) Active Toprol XL 25 mg take 1 tablet by Oral route 1 time per day take at hs May, Active Victoza 18 MG/3ML Subcutaneous Once a day inject 0.3 ml 24h 90 days Active Actos 45 MG Orally Once a day #60 samples 1 tablet Apr, Active RESULTS No Results PROCEDURES Procedure Date Ordered Related Diagnosis Body Site Office Visit, Est Pt., Level 3 Mar 10, 2016 IMMUNIZATIONS No Known Immunizations
--- OUTSIDE RECORDS SUMMARY | 2017-05-14 09:53 | XMS REPORT ---
Author Author BEVERLY TAO Organization [facility] Address [address] [place] [address] Care Team Providers Care Cvt Tech Name Role Phone BEVERLY TAO Unavailable PROBLEMS Type Condition ICD9-CM Code [id number] Code Onset Dates Condition Status SNOMED Code Problem Non compliance with medical treatment Z91.19 Active 3976435 Problem Irritable bowel syndrome with diarrhea K58.0 Active 679273645 Problem Diabetes E11.9 Active 625650165 Problem Acute bilateral low back pain with right-sided sciatica M54.41 Active 551994299 Problem Hyperlipidemia, unspecified E78.5 Active 37961714 Problem Bipolar 1 disorder F31.9 Active 175660356 Problem Lumbar radiculopathy M54.16 Active 917558341 Problem Type 2 diabetes mellitus with complication E11.8 Active 840712096 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
--- OUTSIDE RECORDS SUMMARY | 2017-05-14 09:53 | XMS REPORT ---
Author Author ARIAN US [facility] Address [address] [place] [address] Care Team Providers Care Community Relations Specialist Name Role Phone ARIAN US Unavailable PROBLEMS Type Condition ICD9-CM Code [id number] Code Onset Dates Condition Status SNOMED Code Problem Non compliance with medical treatment Z91.19 Active 2271690 Problem Irritable bowel syndrome with diarrhea K58.0 Active 137604922 Problem Diabetes E11.9 Active 167327541 Problem Acute bilateral low back pain with right-sided sciatica M54.41 Active 288379650 Problem Hyperlipidemia, unspecified E78.5 Active 61439037 Problem Bipolar 1 disorder F31.9 Active 718797318 Problem Lumbar radiculopathy M54.16 Active 925049644 Problem Type 2 diabetes mellitus with complication E11.8 Active 265272034 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 Reason: VITAL SIGNS MEDICATIONS Unknown Medications RESULTS No Results PROCEDURES Procedure Date Ordered Result Body Site Psychotherapy, patient &/family, 30 minutes, established patient August 18, 2016 IMMUNIZATIONS No Known Immunizations MEDICAL (GENERAL) [...]
--- OUTSIDE RECORDS SUMMARY | 2017-05-14 09:54 | XMS REPORT ---
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 Name Role Phone BEVERLY TAO Unavailable PROBLEMS Type Condition ICD9-CM Code [id number] Code Onset Dates Condition Status SNOMED Code Problem Non compliance with medical treatment Z91.19 Active 0547285 Problem Irritable bowel syndrome with diarrhea K58.0 Active 504063510 Problem Diabetes E11.9 Active 203786567 Problem Acute bilateral low back pain with right-sided sciatica M54.41 Active 315160818 Problem Hyperlipidemia, unspecified E78.5 Active 71425865 Problem Bipolar 1 disorder F31.9 Active 380752688 Problem Lumbar radiculopathy M54.16 Active 891923007 Problem Type 2 diabetes mellitus with complication E11.8 Active 768790925 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 Z79.891 Active 261777326 Problem Eye exam normal Z01.00 Active 075432044 Problem Hyperlipidemia 272.4 Active 58122115 Problem Bipolar disorder, in partial remission, most recent episode manic F31.73 Active 22235347 Problem Post laminectomy syndrome M96.1 Active 65892672 Problem Extreme poverty Z59.5 Active 84139089 Problem Obesity, unspecified 278.00 Active 856097878 Problem 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 Active 29205875 ALLERGIES Substance Reaction Event Type Date Status Zithromax Chest pain Drug Allergy July, Active Prednisone elevated blood sugars Drug Allergy July, Active SOCIAL HISTORY Never Assessed PLAN OF CARE Activity Details Follow Up 3 Months Reason: VITAL SIGNS Height 64 in 2016-08-12 Weight 195 lbs 2016-08-12 Temperature 98.3 degrees Fahrenheit 2016-08-12 Heart Rate 92 bpm 2016-08-12 Respiratory Rate 18 2016-08-12 BMI 33.47 kg/m2 2016-08-12 Blood pressure systolic 110 mmHg 2016-08-12 Blood pressure diastolic 70 mmHg 2016-08-12 MEDICATIONS Medication Instructions Dosage Frequency Start Date End Date Duration Status Toprol XL 25 mg take 1 tablet by Oral route 1 time per day take at hs May, Active Victoza 18 MG/3ML Subcutaneous Once a day inject 0.3 ml 24h 90 days Active Aspirin Adult Low Strength 81 MG Orally Once a day 1 tablet 24h Active Simvastatin 40 MG Orally Once a day 2 tablets in the evening 24h Sep, 90 days Active Amaryl 2 MG Orally Once a day in AM 1 tablet with breakfast or the first main meal of the day Sep, 30 day(s) Active tizanidine 4 mg 1 tablet by Oral route every 6 hours Jan, Active Celexa 40 MG Orally Once a day 1 tablet 24h May, Active NovoLog Mix 70/30 Flexpen (70-30) 100 UNIT/ML Subcutaneous 2 times a day Inject 110 12h Active Actos 45 MG Orally Once a day #60 samples 1 tablet Apr, Active Farxiga 5 MG Orally Once a day 1 tablet 24h Apr, Active Cyclobenzaprine HCl 10 MG Orally Three times a day 1 tablet 8h Active Tizanidine HCl 4 MG Orally at bedtime 1 tablet as needed July, Oct, 90 days Active Ativan 0.5 MG Orally prn anxiety. 10/month 1 tablet as needed Sep, Active Lamictal 200 MG Orally Once a day 1 tablet 24h May, Active RESULTS No Results PROCEDURES Procedure Date Ordered Result Body Site MICROALBUMIN, SEMIQUANT August 12, 2016 IMMUNIZATIONS No Known Immunizations MEDICAL (GENERAL) [...]
--- OUTSIDE RECORDS SUMMARY | 2017-05-14 09:54 | XMS REPORT ---
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 Role Phone LOUISE COBOS Unavailable PROBLEMS Type Condition ICD9-CM Code [id number] Code Onset Dates Condition Status SNOMED Code Problem Non compliance with medical treatment Z91.19 Active 3299583 Problem Diabetes E11.9 Active 256454804 Problem Irritable bowel syndrome with diarrhea K58.0 Active 392514945 Problem Acute bilateral low back pain with right-sided sciatica M54.41 Active 128920242 Problem Hyperlipidemia, unspecified E78.5 Active 24956255 Problem Bipolar 1 disorder F31.9 Active 269783240 Problem Lumbar radiculopathy M54.16 Active 249152131 Problem Type 2 diabetes mellitus with complication E11.8 Active 267532427 Problem assisted current 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 Z79.891 Active 631803957 Problem Eye exam normal Z01.00 Active 057568841 Problem Hyperlipidemia 272.4 Active 18432321 Problem Bipolar disorder, in partial remission, most recent episode manic F31.73 Active 72169805 Problem Post laminectomy syndrome M96.1 Active 82046112 Problem Extreme poverty Z59.5 Active 21793498 Problem Obesity, unspecified 278.00 Active 840456871 Problem 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 Active 08428174 ALLERGIES Substance Reaction Event Type Date Status Zithromax Chest pain Drug Allergy Feb, Active Prednisone elevated blood sugars Drug Allergy Feb, Active SOCIAL HISTORY No smoking Hx information available PLAN OF CARE Activity Details Follow Up prn Reason: VITAL SIGNS Height 64 in 2016-03-27 Weight 198.9 lbs 2016-03-27 Temperature 98.5 degrees Fahrenheit 2016-03-27 Heart Rate 80 bpm 2016-03-27 Respiratory Rate 18 2016-03-27 BMI 34.14 kg/m2 2016-03-27 Blood pressure systolic 120 mmHg 2016-03-27 Blood pressure diastolic 78 mmHg 2016-03-27 MEDICATIONS Medication Instructions Dosage Frequency Start Date End Date Duration Status Pseudoephedrine HCl 60 mg Orally every 6 hrs 1 tablet as needed 6h Feb, Active Simvastatin 40 MG Orally Once a day 2 tablets in the evening 24h Sep, 90 days Active Celexa 40 MG Orally Once a day 1 tablet 24h May, Active Lamictal 200 MG Orally Once a day 1 tablet 24h May, Active Farxiga 5 MG Orally Once a day 1 tablet 24h Apr, Active Cyclobenzaprine HCl 10 MG Orally Three times a day 1 tablet 8h Active Amaryl 2 MG Orally Once a day in AM 1 tablet with breakfast or the first main meal of the day Sep, 30 day(s) Active Abilify 10 MG Orally Once a day 1 tablet 24h Sep, Active Actos 45 MG Orally Once a day #60 samples 1 tablet Apr, Active Ativan 0.5 MG Orally prn anxiety. 10/month 1 tablet as needed Sep, Active Victoza 18 MG/3ML Subcutaneous Once a day inject 0.3 ml 24h 90 days Active Toprol XL 25 mg take 1 tablet by Oral route 1 time per day take at hs May, Active Aspirin Adult Low Strength 81 MG Orally Once a day 1 tablet 24h Active Abreva 10 % Externally 5 times per day at earliest signs of infection as directed Feb, 10 days Active tizanidine 4 mg 1 tablet by Oral route every 6 hours Jan, Active NovoLog Mix 70/30 Flexpen (70-30) 100 UNIT/ML Subcutaneous 2 times a day Inject 100 12h 90 days Active RESULTS No Results PROCEDURES Procedure Date Ordered Related Diagnosis Body Site Office Visit, Est Pt., Level 2 Mar 27, 2016 IMMUNIZATIONS No Known Immunizations
--- OUTSIDE RECORDS SUMMARY | 2017-05-14 09:54 | XMS REPORT ---
Author Author ARIAN US [facility] Address [address] [place] [address] Care Team Providers Care Director Of Student Aid Name Role Phone RAIAN US Unavailable PROBLEMS Type Condition ICD9-CM Code [id number] Code Onset Dates Condition Status SNOMED Code Problem Non compliance with medical treatment Z91.19 Active 3106535 Problem Irritable bowel syndrome with diarrhea K58.0 Active 116815355 Problem Diabetes E11.9 Active 473350577 Problem Acute bilateral low back pain with right-sided sciatica M54.41 Active 103037826 Problem Hyperlipidemia, unspecified E78.5 Active 36551135 Problem Bipolar 1 disorder F31.9 Active 545397307 Problem Lumbar radiculopathy M54.16 Active 028183349 Problem Type 2 diabetes mellitus with complication E11.8 Active 513247925 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 Z79.891 Active 899632190 Problem Eye exam normal Z01.00 Active 715101704 Problem Hyperlipidemia 272.4 Active 14855927 Problem Bipolar disorder, in partial remission, most recent episode manic F31.73 Active 92986359 Problem Post laminectomy syndrome M96.1 Active 92536355 Problem Extreme poverty Z59.5 Active 30466207 Problem Obesity, unspecified 278.00 Active 223549001 Problem 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
--- OUTSIDE RECORDS SUMMARY | 2017-05-14 10:03 | XMS REPORT | Continuity of Care Document ---
Author Author [facility] Address Unknown Phone Unavailable Allergies Active Description Code Type Severity Reaction Onset Reported/Identified Relationship to Patient Clinical Status Yes Zithromax Drug Allergy 05/08/2008 Yes Zithromax Drug Allergy N/A N/A 05/08/2008 Yes azithromycin [id number] Drug Allergy Unknown N/A 10/28/2013 Yes prednisone [id number] Drug Allergy Unknown RAISES BLOOD ESPINOZA 10/28/2013 Yes prednisone Drug Allergy N/A N/A 05/03/2014 Medications There is no data. Problems Date Dx Coded Attending Type Code Diagnosis Diagnosed By 02/25/1414 BHARATH GAYLE, ZEHRA Matthews Ot M54.5 LOW BACK PAIN 10/03/2007 250.02 DIABETES II UNCONTROLLED 10/03/2007 250.02 DIABETES II UNCONTROLLED 10/03/2007 250.02 DIABETES II UNCONTROLLED 10/03/2007 BEVERLY TAO APRN 250.02 DIABETES II UNCONTROLLED 10/03/2007 ARIAN US PSYD 250.02 DIABETES II UNCONTROLLED 10/03/2007 ARIAN US PSYD 250.02 DIABETES II UNCONTROLLED 10/03/2007 250.02 DIABETES II UNCONTROLLED 10/03/2007 ARIAN US PSYD 250.02 DIABETES II UNCONTROLLED 10/03/2007 250.02 DIABETES II UNCONTROLLED 10/03/2007 250.02 DIABETES II UNCONTROLLED 10/03/2007 250.02 DIABETES II UNCONTROLLED 10/03/2007 250.02 DIABETES II UNCONTROLLED 10/03/2007 250.02 DIABETES II UNCONTROLLED 10/03/2007 250.02 DIABETES II UNCONTROLLED 10/03/2007 250.02 DIABETES II UNCONTROLLED 10/03/2007 250.02 DIABETES II UNCONTROLLED 10/03/2007 250.02 DIABETES II UNCONTROLLED 10/03/2007 250.02 DIABETES II UNCONTROLLED 10/03/2007 250.02 DIABETES II UNCONTROLLED 10/03/2007 250.02 DIABETES II UNCONTROLLED 10/03/2007 250.02 DIABETES II UNCONTROLLED 10/03/2007 250.02 DIABETES II UNCONTROLLED 10/03/2007 ARIAN US PSYD L 250.02 DIABETES II UNCONTROLLED 10/03/2007 ARIAN US PSYD L 250.02 DIABETES II UNCONTROLLED 10/03/2007 LUCIANO WILLARD DO 250.02 DIABETES II UNCONTROLLED 10/03/2007 JERMAINE FERRER APRN 250.02 DIABETES II UNCONTROLLED 10/03/2007 ARIAN US PSYD L 250.02 DIABETES II UNCONTROLLED 10/03/2007 CATALINA MCKNIGHT APRN A 250.02 DIABETES II UNCONTROLLED 10/03/2007 BEVERLY TAO APRN S 250.02 DIABETES II UNCONTROLLED 10/03/2007 JERMAINE FERRER APRN 250.02 DIABETES II UNCONTROLLED 10/03/2007 ARIAN US PSYD L 250.02 DIABETES II UNCONTROLLED 10/03/2007 HARLEEN LOU APRN T 250.02 DIABETES II UNCONTROLLED 10/03/2007 HARLEEN LOU APRN 250.02 DIABETES II UNCONTROLLED 10/03/2007 ARIAN US PSYD L 250.02 DIABETES II UNCONTROLLED 10/03/2007 ARIAN US PSYD L 250.02 DIABETES II UNCONTROLLED 10/03/2007 LOUISE COBOS MD 250.02 DIABETES II UNCONTROLLED 10/03/2007 JERMAINE FERRER APRN 250.02 DIABETES II UNCONTROLLED 10/03/2007 ARIAN US PSYD L 250.02 DIABETES II UNCONTROLLED 10/03/2007 ARIAN US PSYD L 250.02 DIABETES II UNCONTROLLED 10/03/2007 ARIAN US PSYD L 250.02 DIABETES II UNCONTROLLED 10/03/2007 ARIAN US PSYD L 250.02 DIABETES II UNCONTROLLED 10/03/2007 BEVERLY TAO APRN S 250.02 DIABETES II UNCONTROLLED 10/03/2007 ARIAN US PSYD ANN L 250.02 DIABETES II UNCONTROLLED 10/03/2007 LUCIANO WILLARD DO 250.02 DIABETES II UNCONTROLLED 10/03/2007 LOUISE COBOS MD 250.02 DIABETES II UNCONTROLLED 10/03/2007 ARIAN US PSYD L 250.02 DIABETES II UNCONTROLLED 10/03/2007 LATONYA TAO APRNA S 250.02 DIABETES II UNCONTROLLED 10/03/2007 ARIAN US PSYD ANN L 250.02 DIABETES II UNCONTROLLED 10/03/2007 ARIAN US PSYD ANN L 250.02 DIABETES II UNCONTROLLED 10/03/2007 LATONYA TAO APRNA S 250.02 DIABETES II UNCONTROLLED 10/03/2007 ARIAN US PSYD ANN L 250.02 DIABETES II UNCONTROLLED 10/03/2007 NELSON OCONNOR JAVAD 250.02 DIABETES II UNCONTROLLED 10/03/2007 BEVERLY TAO APRN S 250.02 DIABETES II UNCONTROLLED 10/03/2007 MADAI DAMON APRNETTE 250.02 DIABETES II UNCONTROLLED 10/03/2007 ARIAN US PSYD L 250.02 DIABETES II UNCONTROLLED 10/03/2007 ARIAN US PSYD ANN L 250.02 DIABETES II UNCONTROLLED 10/03/2007 ARIAN US PSYD ANN L 250.02 DIABETES II UNCONTROLLED 10/03/2007 BEVERLY TAO APRN S 250.02 DIABETES II UNCONTROLLED 10/03/2007 ROXANNA OCONNOR CATALINA A 250.02 DIABETES II UNCONTROLLED 10/03/2007 MADAI DAMON APRNETTE 250.02 DIABETES II UNCONTROLLED 10/03/2007 ARIAN US PSYD L 250.02 DIABETES II UNCONTROLLED 10/03/2007 ARIAN US PSYD ANN L 250.02 DIABETES II UNCONTROLLED 10/03/2007 BEVERLY TAO APRN S 250.02 DIABETES II UNCONTROLLED 10/03/2007 ARIAN US PSYD L 250.02 DIABETES II UNCONTROLLED 10/03/2007 ARIAN US PSYD ANN L 250.02 DIABETES II UNCONTROLLED 10/03/2007 ROXANNA OCONNOR CATALINA A 250.02 DIABETES II UNCONTROLLED 10/03/2007 ARIAN US PSYD ANN L 250.02 DIABETES II UNCONTROLLED 10/03/2007 ARIAN US PSYD ANN L 250.02 DIABETES II UNCONTROLLED 10/03/2007 ARIAN US PSYD ANN L 250.02 DIABETES II UNCONTROLLED 12/22/2007 250.00 Diabetes Ii Controlled 12/22/2007 250.00 Diabetes Ii Controlled 12/22/2007 250.00 Diabetes Ii Controlled 12/22/2007 BEVERLY TAO APRN S 250.00 Diabetes Ii Controlled 12/22/2007 ARIAN US PSYD 250.00 Diabetes Ii Controlled 12/22/2007 ARIAN US PSYD L 250.00 Diabetes Ii Controlled 12/22/2007 250.00 Diabetes Ii Controlled 12/22/2007 ARIAN US PSYD L 250.00 Diabetes Ii Controlled 12/22/2007 250.00 Diabetes Ii Controlled 12/22/2007 250.00 Diabetes Ii Controlled 12/22/2007 250.00 Diabetes Ii Controlled 12/22/2007 250.00 Diabetes Ii Controlled 12/22/2007 250.00 Diabetes Ii Controlled 12/22/2007 250.00 Diabetes Ii Controlled 12/22/2007 250.00 Diabetes Ii Controlled 12/22/2007 250.00 Diabetes Ii Controlled 12/22/2007 250.00 Diabetes Ii Controlled 12/22/2007 250.00 Diabetes Ii Controlled 12/22/2007 250.00 Diabetes Ii Controlled 12/22/2007 250.00 Diabetes Ii Controlled 12/22/2007 250.00 Diabetes Ii Controlled 12/22/2007 250.00 Diabetes Ii Controlled 12/22/2007 ARIAN US PSYD 250.00 DIABETES MELLITUS TYPE 2 12/22/2007 ARIAN US PSYD 250.00 DIABETES MELLITUS TYPE 2 12/22/2007 LUCIANO WILLARD DO 250.00 DIABETES MELLITUS TYPE 2 12/22/2007 JERMAINE FERRER APRN 250.00 DIABETES MELLITUS TYPE 2 12/22/2007 ARIAN US PSYD 250.00 DIABETES MELLITUS TYPE 2 12/22/2007 CATALINA MCKNIGHT APRN 250.00 DIABETES MELLITUS TYPE 2 12/22/2007 BEVERLY TAO APRN 250.00 DIABETES MELLITUS TYPE 2 12/22/2007 JERMAINE FERRER APRN 250.00 DIABETES MELLITUS TYPE 2 12/22/2007 ARIAN US PSYD 250.00 DIABETES MELLITUS TYPE 2 12/22/2007 HARLEEN LOU APRN T 250.00 DIABETES MELLITUS TYPE 2 12/22/2007 HARLEEN LOU APRN T 250.00 DIABETES MELLITUS TYPE 2 12/22/2007 ARIAN US PSYD 250.00 DIABETES MELLITUS TYPE 2 12/22/2007 ARIAN US PSYD ANN L 250.00 DIABETES MELLITUS TYPE 2 12/22/2007 LOUISE COBOS MD 250.00 DIABETES MELLITUS TYPE 2 12/22/2007 JERMAINE FERRER APRN 250.00 DIABETES MELLITUS TYPE 2 12/22/2007 ARIAN US PSYD ANN L 250.00 Diabetes Ii Controlled 12/22/2007 ARIAN US PSYD ANN L 250.00 DIABETES MELLITUS TYPE 2 12/22/2007 ARIAN US PSYD ANN L 250.00 DIABETES MELLITUS TYPE 2 12/22/2007 ARIAN US PSYD ANN L 250.00 DIABETES MELLITUS TYPE 2 12/22/2007 AISLINNCHICHI OCONNOR, BEVERLY S 250.00 DIABETES MELLITUS TYPE 2 12/22/2007 ARIAN US PSYD ANN L 250.00 DIABETES MELLITUS TYPE 2 12/22/2007 LUCIANO WILLARD DO 250.00 DIABETES MELLITUS TYPE 2 12/22/2007 LOUISE COBOS MD 250.00 DIABETES MELLITUS TYPE 2 12/22/2007 ARIAN US PSYD ANN L 250.00 DIABETES MELLITUS TYPE 2 12/22/2007 AISLINN OCONNOR, BEVERLY S 250.00 DIABETES MELLITUS TYPE 2 12/22/2007 ARIAN US PSYD ANN L 250.00 DIABETES MELLITUS TYPE 2 12/22/2007 ARIAN US PSYD ANN L 250.00 DIABETES MELLITUS TYPE 2 12/22/2007 AISLINN OCONNOR, BEVERLY S 250.00 DIABETES MELLITUS TYPE 2 12/22/2007 ARIAN US PSYD ANN L 250.00 DIABETES MELLITUS TYPE 2 12/22/2007 NELSON OCONNOR, JAVAD 250.00 DIABETES MELLITUS TYPE 2 12/22/2007 AISLINN OCONNOR, BEVERLY S 250.00 DIABETES MELLITUS TYPE 2 12/22/2007 NELSON TAXI PROPRIETOR, JAVAD 250.00 DIABETES MELLITUS TYPE 2 12/22/2007 ARIAN US PSYD ANN L 250.00 DIABETES MELLITUS TYPE 2 12/22/2007 ARIAN US PSYD ANN L 250.00 DIABETES MELLITUS TYPE 2 12/22/2007 ARIAN US PSYD ANN L 250.00 DIABETES MELLITUS TYPE 2 12/22/2007 AISLINN OCONNOR, BEVERLY S 250.00 DIABETES MELLITUS TYPE 2 12/22/2007 ROXANNA RUIZN, CATALINA A 250.00 DIABETES MELLITUS TYPE 2 12/22/2007 JAVAD DAMON APRN 250.00 DIABETES MELLITUS TYPE 2 12/22/2007 ARIAN US PSYD ANN L 250.00 DIABETES MELLITUS TYPE 2 12/22/2007 ARIAN US PSYD ANN L 250.00 DIABETES MELLITUS TYPE 2 12/22/2007 BEVERLY TAO APRN S 250.00 DIABETES MELLITUS TYPE 2 12/22/2007 ARIAN US PSYD ANN L 250.00 DIABETES MELLITUS TYPE 2 12/22/2007 ARIAN US PSYD ANN L 250.00 DIABETES MELLITUS TYPE 2 12/22/2007 ROXANNA TAXI PROPRIETOR, CATALINA A 250.00 DIABETES MELLITUS TYPE 2 12/22/2007 ARIAN US PSYD ANN L 250.00 DIABETES MELLITUS TYPE 2 12/22/2007 ARIAN US PSYD ANN L 250.00 DIABETES MELLITUS TYPE 2 12/22/2007 ARIAN US PSYD ANN L 250.00 DIABETES MELLITUS TYPE 2 01/24/2008 V72.31 Routine Gynecological Examination 01/24/2008 V72.31 Routine Gynecological Examination 01/24/2008 V72.31 Routine Gynecological Examination 01/24/2008 BEVERLY TAO APRN V72.31 Routine Gynecological Examination 01/24/2008 ARIAN US PSYD L V72.31 Routine Gynecological Examination 01/24/2008 ARIAN US PSYD L V72.31 Routine Gynecological Examination 01/24/2008 V72.31 Routine Gynecological Examination 01/24/2008 ARIAN US PSYD V72.31 Routine Gynecological Examination 01/24/2008 V72.31 Routine Gynecological Examination 01/24/2008 V72.31 Routine Gynecological Examination 01/24/2008 V72.31 Routine Gynecological Examination 01/24/2008 V72.31 Routine Gynecological Examination 01/24/2008 V72.31 Routine Gynecological Examination 01/24/2008 V72.31 Routine Gynecological Examination 01/24/2008 V72.31 Routine Gynecological Examination 01/24/2008 V72.31 Routine Gynecological Examination 01/24/2008 V72.31 Routine Gynecological Examination 01/24/2008 V72.31 Routine Gynecological Examination 01/24/2008 V72.31 Routine Gynecological Examination 01/24/2008 V72.31 Routine Gynecological Examination 01/24/2008 V72.31 Routine Gynecological Examination 01/24/2008 V72.31 Routine Gynecological Examination 01/24/2008 ARIAN US PSYD L V72.31 Routine Gynecological Examination 01/24/2008 ARIAN US PSYD L V72.31 Routine Gynecological Examination 01/24/2008 LUCIANO WILLARD DO K V72.31 Routine Gynecological Examination 01/24/2008 JERMAINE FERRER APRN V72.31 Routine Gynecological Examination 01/24/2008 ARIAN US PSYD L V72.31 Routine Gynecological Examination 01/24/2008 CATALINA MCKNIGHT APRN V72.31 Routine Gynecological Examination 01/24/2008 BEVERLY TAO APRN S V72.31 Routine Gynecological Examination 01/24/2008 JERMAINE FERRER APRN V72.31 Routine Gynecological Examination 01/24/2008 ARIAN US PSYD L V72.31 Routine Gynecological Examination 01/24/2008 HARLEEN LOU APRN V72.31 Routine Gynecological Examination 01/24/2008 HARLEEN LOU APRN V72.31 Routine Gynecological Examination 01/24/2008 ARIAN US PSYD L V72.31 Routine Gynecological Examination 01/24/2008 ARIAN US PSYD L V72.31 Routine Gynecological Examination 01/24/2008 LOUISE COBOS MD V72.31 Routine Gynecological Examination 01/24/2008 JERMAINE FERRER APRN V72.31 Routine Gynecological Examination 01/24/2008 ARIAN US PSYD L V72.31 Routine Gynecological Examination 01/24/2008 ARIAN US PSYD L V72.31 Routine Gynecological Examination 01/24/2008 ARIAN US PSYD V72.31 Routine Gynecological Examination 01/24/2008 ARIAN US PSYD L V72.31 Routine Gynecological Examination 01/24/2008 BEVERLY TAO APRN S V72.31 Routine Gynecological Examination 01/24/2008 ARIAN US PSYD V72.31 Routine Gynecological Examination 01/24/2008 LUCIANO WILLARD DO K V72.31 Routine Gynecological Examination 01/24/2008 PAPITO GAYLE, LOUISE V72.31 Routine Gynecological Examination 01/24/2008 ARIAN US PSYD L V72.31 Routine Gynecological Examination 01/24/2008 LATONYA TAO APRNA S V72.31 Routine Gynecological Examination 01/24/2008 ARIAN US PSYD ANN L V72.31 Routine Gynecological Examination 01/24/2008 ARIAN US PSYD ANN L V72.31 Routine Gynecological Examination 01/24/2008 LATONYA TAO APRNA S V72.31 Routine Gynecological Examination 01/24/2008 ARIAN US PSYD L V72.31 Routine Gynecological Examination 01/24/2008 JAVAD DAMON APRN V72.31 Routine Gynecological Examination 01/24/2008 LATONYA TAO APRNA S V72.31 Routine Gynecological Examination 01/24/2008 JAVAD DAMON APRN V72.31 Routine Gynecological Examination 01/24/2008 ARIAN US PSYD L V72.31 Routine Gynecological Examination 01/24/2008 ARIAN US PSYD ANN L V72.31 Routine Gynecological Examination 01/24/2008 ARIAN US PSYD L V72.31 Routine Gynecological Examination 01/24/2008 BEVERLY TAO APRN S V72.31 Routine Gynecological Examination 01/24/2008 JASMIN MCKNIGHT APRNIDI A V72.31 Routine Gynecological Examination 01/24/2008 JAVAD DAMON APRN V72.31 Routine Gynecological Examination 01/24/2008 ARIAN US PSYD L V72.31 Routine Gynecological Examination 01/24/2008 ARIAN US PSYD ANN L V72.31 Routine Gynecological Examination 01/24/2008 LATONYA TAO APRNA S V72.31 Routine Gynecological Examination 01/24/2008 ARIAN US PSYD ANN L V72.31 Routine Gynecological Examination 01/24/2008 ARIAN US PSYD ANN L V72.31 Routine Gynecological Examination 01/24/2008 ROXANNA OCONNOR, CATALINA A V72.31 Routine Gynecological Examination 01/24/2008 ARIAN SU PSYD ANN L V72.31 Routine Gynecological Examination 01/24/2008 ARIAN US PSYD ANN L V72.31 Routine Gynecological Examination 01/24/2008 ARIAN US PSYD ANN L V72.31 Routine Gynecological Examination 04/02/2008 682.9 Cellulitis And Abscess Of Unspecified Sites 04/02/2008 682.9 Cellulitis And Abscess Of Unspecified Sites 04/02/2008 682.9 Cellulitis And Abscess Of Unspecified Sites 04/02/2008 BEVERLY TAO APRN 682.9 Cellulitis And Abscess Of Unspecified Sites 04/02/2008 ARIAN US PSYD ANN L 682.9 Cellulitis And Abscess Of Unspecified Sites 04/02/2008 ARIAN US PSYD ANN L 682.9 Cellulitis And Abscess Of Unspecified Sites 04/02/2008 682.9 Cellulitis And Abscess Of Unspecified Sites 04/02/2008 ARIAN US PSYD ANN L 682.9 Cellulitis And Abscess Of Unspecified Sites 04/02/2008 682.9 Cellulitis And Abscess Of Unspecified Sites 04/02/2008 682.9 Cellulitis And Abscess Of Unspecified Sites 04/02/2008 682.9 Cellulitis And Abscess Of Unspecified Sites 04/02/2008 682.9 Cellulitis And Abscess Of Unspecified Sites 04/02/2008 682.9 Cellulitis And Abscess Of Unspecified Sites 04/02/2008 682.9 Cellulitis And Abscess Of Unspecified Sites 04/02/2008 682.9 Cellulitis And Abscess Of Unspecified Sites 04/02/2008 682.9 Cellulitis And Abscess Of Unspecified Sites 04/02/2008 682.9 Cellulitis And Abscess Of Unspecified Sites 04/02/2008 682.9 Cellulitis And Abscess Of Unspecified Sites 04/02/2008 682.9 Cellulitis And Abscess Of Unspecified Sites 04/02/2008 682.9 Cellulitis And Abscess Of Unspecified Sites 04/02/2008 682.9 Cellulitis And Abscess Of Unspecified Sites 04/02/2008 682.9 Cellulitis And Abscess Of Unspecified Sites 04/02/2008 ARIAN US PSYD ANN L 682.9 Cellulitis And Abscess Of Unspecified Sites 04/02/2008 ARIAN US PSYD ANN L 682.9 Cellulitis And Abscess Of Unspecified Sites 04/02/2008 LUCIANO WILLARD DO 682.9 Cellulitis And Abscess Of Unspecified Sites 04/02/2008 JERMAINE FERRER APRN 682.9 Cellulitis And Abscess Of Unspecified Sites 04/02/2008 ARIAN US PSYD ANN L 682.9 Cellulitis And Abscess Of Unspecified Sites 04/02/2008 ROXANNA RUIZNCATALINA A 682.9 Cellulitis And Abscess Of Unspecified Sites 04/02/2008 AISLINN TAXI PROPRIETOR, BEVERLY S 682.9 Cellulitis And Abscess Of Unspecified Sites 04/02/2008 JERMAINE FERRER APRN 682.9 Cellulitis And Abscess Of Unspecified Sites 04/02/2008 ARIAN US PSYD ANN L 682.9 Cellulitis And Abscess Of Unspecified Sites 04/02/2008 HARLEEN LOU APRN 682.9 Cellulitis And Abscess Of Unspecified Sites 04/02/2008 HARLEEN LOU APRN 682.9 Cellulitis And Abscess Of Unspecified Sites 04/02/2008 ARIAN US PSYD ANN L 682.9 Cellulitis And Abscess Of Unspecified Sites 04/02/2008 ARIAN US PSYD ANN L 682.9 Cellulitis And Abscess Of Unspecified Sites 04/02/2008 LOUISE COBOS MD 682.9 Cellulitis And Abscess Of Unspecified Sites 04/02/2008 JERMAINE FERRER APRN 682.9 Cellulitis And Abscess Of Unspecified Sites 04/02/2008 ARIAN US PSYD ANN L 682.9 Cellulitis And Abscess Of Unspecified Sites 04/02/2008 ARIAN US PSYD ANN L 682.9 Cellulitis And Abscess Of Unspecified Sites 04/02/2008 ARIAN US PSYD ANN L 682.9 Cellulitis And Abscess Of Unspecified Sites 04/02/2008 ARIAN US PSYD ANN L 682.9 Cellulitis And Abscess Of Unspecified Sites 04/02/2008 BEVERLY TAO APRN S 682.9 Cellulitis And Abscess Of Unspecified Sites 04/02/2008 ARIAN US PSYD ANN L 682.9 Cellulitis And Abscess Of Unspecified Sites 04/02/2008 LUCIANO WILLARD DO 682.9 Cellulitis And Abscess Of Unspecified Sites 04/02/2008 PAPITO GAYLE, LOUISE 682.9 Cellulitis And Abscess Of Unspecified Sites 04/02/2008 ARIAN US PSYD ANN L 682.9 Cellulitis And Abscess Of Unspecified Sites 04/02/2008 AISLINN TAXI PROPRIETOR, BEVERLY S 682.9 Cellulitis And Abscess Of Unspecified Sites 04/02/2008 ARIAN US PSYD ANN L 682.9 Cellulitis And Abscess Of Unspecified Sites 04/02/2008 ARIAN US PSYD ANN L 682.9 Cellulitis And Abscess Of Unspecified Sites 04/02/2008 CLAUDE TAO APRNNDA S 682.9 Cellulitis And Abscess Of Unspecified Sites 04/02/2008 ARIAN US PSYD ANN L 682.9 Cellulitis And Abscess Of Unspecified Sites 04/02/2008 NELSON TAXI PROPRIETOR, JAVAD 682.9 Cellulitis And Abscess Of Unspecified Sites 04/02/2008 CLAUDE TAO APRNNDA S 682.9 Cellulitis And Abscess Of Unspecified Sites 04/02/2008 NELSON TAXI PROPRIETOR, JAVAD 682.9 Cellulitis And Abscess Of Unspecified Sites 04/02/2008 ARIAN US PSYD ANN L 682.9 Cellulitis And Abscess Of Unspecified Sites 04/02/2008 ARIAN US PSYD ANN L 682.9 Cellulitis And Abscess Of Unspecified Sites 04/02/2008 ARIAN US PSYD ANN L 682.9 Cellulitis And Abscess Of Unspecified Sites 04/02/2008 AISLINN OCONNOR BEVERLY S 682.9 Cellulitis And Abscess Of Unspecified Sites 04/02/2008 CATALINA MCKNIGHT APRN 682.9 Cellulitis And Abscess Of Unspecified Sites 04/02/2008 NELSON TAXI PROPRIETOR, JAVAD 682.9 Cellulitis And Abscess Of Unspecified Sites 04/02/2008 ARIAN US PSYD ANN L 682.9 Cellulitis And Abscess Of Unspecified Sites 04/02/2008 ARIAN US PSYD ANN L 682.9 Cellulitis And Abscess Of Unspecified Sites 04/02/2008 CLAUDE TAO APRNNDA S 682.9 Cellulitis And Abscess Of Unspecified Sites 04/02/2008 ARIAN US PSYD ANN L 682.9 Cellulitis And Abscess Of Unspecified Sites 04/02/2008 ABEBA GARZA DAISHA L 682.9 Cellulitis And Abscess Of Unspecified Sites 04/02/2008 ROXANNACARLOS EDUARDO OCONNOR, CATALINA A 682.9 Cellulitis And Abscess Of Unspecified Sites 04/02/2008 ARIAN US PSYD ANN L 682.9 Cellulitis And Abscess Of Unspecified Sites 04/02/2008 ARIAN US PSYD ANN L 682.9 Cellulitis And Abscess Of Unspecified Sites 04/02/2008 ARIAN US PSYD ANN L 682.9 Cellulitis And Abscess Of Unspecified Sites 05/08/2008 465.9 Acute Upper Respiratory Infections Of Unspecified Site 05/08/2008 465.9 Acute Upper Respiratory Infections Of Unspecified Site 05/08/2008 465.9 Acute Upper Respiratory Infections Of Unspecified Site 05/08/2008 LATONYA TAO APRNA S 465.9 Acute Upper Respiratory Infections Of Unspecified Site 05/08/2008 ARIAN SU PSYD ANN L 465.9 Acute Upper Respiratory Infections Of Unspecified Site 05/08/2008 ARIAN US PSYD ANN L 465.9 Acute Upper Respiratory Infections Of Unspecified Site 05/08/2008 465.9 Acute Upper Respiratory Infections Of Unspecified Site 05/08/2008 ARIAN US PSYD ANN L 465.9 Acute Upper Respiratory Infections Of Unspecified Site 05/08/2008 465.9 Acute Upper Respiratory Infections Of Unspecified Site 05/08/2008 465.9 Acute Upper Respiratory Infections Of Unspecified Site 05/08/2008 465.9 Acute Upper Respiratory Infections Of Unspecified Site 05/08/2008 465.9 Acute Upper Respiratory Infections Of Unspecified Site 05/08/2008 465.9 Acute Upper Respiratory Infections Of Unspecified Site 05/08/2008 465.9 Acute Upper Respiratory Infections Of Unspecified Site 05/08/2008 465.9 Acute Upper Respiratory Infections Of Unspecified Site 05/08/2008 465.9 Acute Upper Respiratory Infections Of Unspecified Site 05/08/2008 465.9 Acute Upper Respiratory Infections Of Unspecified Site 05/08/2008 465.9 Acute Upper Respiratory Infections Of Unspecified Site 05/08/2008 465.9 Acute Upper Respiratory Infections Of Unspecified Site 05/08/2008 465.9 Acute Upper Respiratory Infections Of Unspecified Site 05/08/2008 465.9 Acute Upper Respiratory Infections Of Unspecified Site 05/08/2008 465.9 Acute Upper Respiratory Infections Of Unspecified Site 05/08/2008 ABEBA GARZA DAISHA L 465.9 Acute Upper Respiratory Infections Of Unspecified Site 05/08/2008 ABEBA GARZA DAISHA L 465.9 Acute Upper Respiratory Infections Of Unspecified Site 05/08/2008 LUCIANO WILLARD DO K 465.9 Acute Upper Respiratory Infections Of Unspecified Site 05/08/2008 JERMAINE FERRER APRN 465.9 Acute Upper Respiratory Infections Of Unspecified Site 05/08/2008 ABEBA GARZA DAISHA L 465.9 Acute Upper Respiratory Infections Of Unspecified Site 05/08/2008 CATALINA MCKNIGHT APRN A 465.9 Acute Upper Respiratory Infections Of Unspecified Site 05/08/2008 BEVERLY TAO APRN 465.9 Acute Upper Respiratory Infections Of Unspecified Site 05/08/2008 JERMAINE FERRER APRN 465.9 Acute Upper Respiratory Infections Of Unspecified Site 05/08/2008 ARIAN US PSYD ANN L 465.9 Acute Upper Respiratory Infections Of Unspecified Site 05/08/2008 HARLEEN LOU APRN T 465.9 Acute Upper Respiratory Infections Of Unspecified Site 05/08/2008 HARLEEN LOU APRN 465.9 Acute Upper Respiratory Infections Of Unspecified Site 05/08/2008 ABEBA GARZA DAISHA L 465.9 Acute Upper Respiratory Infections Of Unspecified Site 05/08/2008 ABEBA GARZA DAISHA L 465.9 Acute Upper Respiratory Infections Of Unspecified Site 05/08/2008 LOUISE COBOS MD 465.9 Acute Upper Respiratory Infections Of Unspecified Site 05/08/2008 JERMAINE FERRER APRN 465.9 Acute Upper Respiratory Infections Of Unspecified Site 05/08/2008 ABEBA GARZA DAISHA L 465.9 Acute Upper Respiratory Infections Of Unspecified Site 05/08/2008 ABEBA GARZA DAISHA L 465.9 Acute Upper Respiratory Infections Of Unspecified Site 05/08/2008 ARIAN US PSYD ANN L 465.9 Acute Upper Respiratory Infections Of Unspecified Site 05/08/2008 ARIAN US PSYD ANN L 465.9 Acute Upper Respiratory Infections Of Unspecified Site 05/08/2008 AISLINN TAXI PROPRIETOR, BEVERLY S 465.9 Acute Upper Respiratory Infections Of Unspecified Site 05/08/2008 ARIAN US PSYD ANN L 465.9 Acute Upper Respiratory Infections Of Unspecified Site 05/08/2008 LUCIANO WILLARD DO 465.9 Acute Upper Respiratory Infections Of Unspecified Site 05/08/2008 PAPITO GAYLE, LOUISE 465.9 Acute Upper Respiratory Infections Of Unspecified Site 05/08/2008 ARIAN US PSYD ANN L 465.9 Acute Upper Respiratory Infections Of Unspecified Site 05/08/2008 AISLINN TAXI PROPRIETOR, BEVERLY S 465.9 Acute Upper Respiratory Infections Of Unspecified Site 05/08/2008 ARIAN US PSYD ANN L 465.9 Acute Upper Respiratory Infections Of Unspecified Site 05/08/2008 ARIAN US PSYD ANN L 465.9 Acute Upper Respiratory Infections Of Unspecified Site 05/08/2008 AISLINN TAXI PROPRIETOR, BEVERLY S 465.9 Acute Upper Respiratory Infections Of Unspecified Site 05/08/2008 ARIAN SU PSYD ANN L 465.9 Acute Upper Respiratory Infections Of Unspecified Site 05/08/2008 NELSON TAXI PROPRIETOR, JAVAD 465.9 Acute Upper Respiratory Infections Of Unspecified Site 05/08/2008 AISLINN TAXI PROPRIETOR, BEVERLY S 465.9 Acute Upper Respiratory Infections Of Unspecified Site 05/08/2008 NELSON TAXI PROPRIETOR, JAVAD 465.9 Acute Upper Respiratory Infections Of Unspecified Site 05/08/2008 ARIAN US PSYD ANN L 465.9 Acute Upper Respiratory Infections Of Unspecified Site 05/08/2008 ARIAN US PSYD ANN L 465.9 Acute Upper Respiratory Infections Of Unspecified Site 05/08/2008 ARIAN US PSYD ANN L 465.9 Acute Upper Respiratory Infections Of Unspecified Site 05/08/2008 AISLINN TAXI PROPRIETOR, BEVERLY S 465.9 Acute Upper Respiratory Infections Of Unspecified Site 05/08/2008 ROXANNACARLOS EDUARDO OCONNOR CATALINA A 465.9 Acute Upper Respiratory Infections Of Unspecified Site 05/08/2008 MADAI DAMON APRNETTE 465.9 Acute Upper Respiratory Infections Of Unspecified Site 05/08/2008 ARIAN US PSYD ANN L 465.9 Acute Upper Respiratory Infections Of Unspecified Site 05/08/2008 ARIAN US PSYD ANN L 465.9 Acute Upper Respiratory Infections Of Unspecified Site 05/08/2008 BEVERLY TAO APRN S 465.9 Acute Upper Respiratory Infections Of Unspecified Site 05/08/2008 ARIAN US PSYD ANN L 465.9 Acute Upper Respiratory Infections Of Unspecified Site 05/08/2008 ARIAN US PSYD ANN L 465.9 Acute Upper Respiratory Infections Of Unspecified Site 05/08/2008 ROXANNA OCONNOR CATALINA A 465.9 Acute Upper Respiratory Infections Of Unspecified Site 05/08/2008 ARIAN US PSYD ANN L 465.9 Acute Upper Respiratory Infections Of Unspecified Site 05/08/2008 ARIAN US PSYD ANN L 465.9 Acute Upper Respiratory Infections Of Unspecified Site 05/08/2008 ARIAN US PSYD ANN L 465.9 Acute Upper Respiratory Infections Of Unspecified Site 05/30/2008 136.8 Other Specified Infectious And Parasitic Diseases 05/30/2008 136.8 Other Specified Infectious And Parasitic Diseases 05/30/2008 136.8 Other Specified Infectious And Parasitic Diseases 05/30/2008 BEVERLY TAO APRN S 136.8 Other Specified Infectious And Parasitic Diseases 05/30/2008 ARIAN US PSYD ANN L 136.8 Other Specified Infectious And Parasitic Diseases 05/30/2008 ARIAN US PSYD ANN L 136.8 Other Specified Infectious And Parasitic Diseases 05/30/2008 136.8 Other Specified Infectious And Parasitic Diseases 05/30/2008 ARIAN US PSYD ANN L 136.8 Other Specified Infectious And Parasitic Diseases 05/30/2008 136.8 Other Specified Infectious And Parasitic Diseases 05/30/2008 136.8 Other Specified Infectious And Parasitic Diseases 05/30/2008 136.8 Other Specified Infectious And Parasitic Diseases 05/30/2008 136.8 Other Specified Infectious And Parasitic Diseases 05/30/2008 136.8 Other Specified Infectious And Parasitic Diseases 05/30/2008 136.8 Other Specified Infectious And Parasitic Diseases 05/30/2008 136.8 Other Specified Infectious And Parasitic Diseases 05/30/2008 136.8 Other Specified Infectious And Parasitic Diseases 05/30/2008 136.8 Other Specified Infectious And Parasitic Diseases 05/30/2008 136.8 Other Specified Infectious And Parasitic Diseases 05/30/2008 136.8 Other Specified Infectious And Parasitic Diseases 05/30/2008 136.8 Other Specified Infectious And Parasitic Diseases 05/30/2008 136.8 Other Specified Infectious And Parasitic Diseases 05/30/2008 136.8 Other Specified Infectious And Parasitic Diseases 05/30/2008 ARIAN US PSYD ANN L 136.8 Other Specified Infectious And Parasitic Diseases 05/30/2008 ARIAN US PSYD ANN L 136.8 Other Specified Infectious And Parasitic Diseases 05/30/2008 LUCIANO WILLARD DO 136.8 Other Specified Infectious And Parasitic Diseases 05/30/2008 JERMAINE FERRER APRN 136.8 Other Specified Infectious And Parasitic Diseases 05/30/2008 ARIAN US PSYD ANN L 136.8 Other Specified Infectious And Parasitic Diseases 05/30/2008 ROXANNACATALINA THIBODEAUX APRN A 136.8 Other Specified Infectious And Parasitic Diseases 05/30/2008 BEVERLY TAO APRN S 136.8 Other Specified Infectious And Parasitic Diseases 05/30/2008 JERMAINE FERRER APRN 136.8 Other Specified Infectious And Parasitic Diseases 05/30/2008 ARIAN US PSYD ANN L 136.8 Other Specified Infectious And Parasitic Diseases 05/30/2008 HARLEEN LOU APRN 136.8 Other Specified Infectious And Parasitic Diseases 05/30/2008 HARLEEN LOU APRN 136.8 Other Specified Infectious And Parasitic Diseases 05/30/2008 ARIAN US PSYD ANN L 136.8 Other Specified Infectious And Parasitic Diseases 05/30/2008 ARIAN US PSYD ANN L 136.8 Other Specified Infectious And Parasitic Diseases 05/30/2008 LOUISE COBOS MD 136.8 Other Specified Infectious And Parasitic Diseases 05/30/2008 JERMAINE FERRER APRN 136.8 Other Specified Infectious And Parasitic Diseases 05/30/2008 ARIAN US PSYD ANN L 136.8 Other Specified Infectious And Parasitic Diseases 05/30/2008 ARIAN US PSYD ANN L 136.8 Other Specified Infectious And Parasitic Diseases 05/30/2008 ARIAN US PSYD ANN L 136.8 Other Specified Infectious And Parasitic Diseases 05/30/2008 ARIAN US PSYD ANN L 136.8 Other Specified Infectious And Parasitic Diseases 05/30/2008 AISLINN TAXI PROPRIETOR, BEVERLY S 136.8 Other Specified Infectious And Parasitic Diseases 05/30/2008 ARIAN US PSYD ANN L 136.8 Other Specified Infectious And Parasitic Diseases 05/30/2008 LUCIANO WILLARD DO 136.8 Other Specified Infectious And Parasitic Diseases 05/30/2008 LOUISE COBOS MD 136.8 Other Specified Infectious And Parasitic Diseases 05/30/2008 ARIAN US PSYD ANN L 136.8 Other Specified Infectious And Parasitic Diseases 05/30/2008 AISLINNCLAUDE CADET APRNNDA S 136.8 Other Specified Infectious And Parasitic Diseases 05/30/2008 ARIAN US PSYD ANN L 136.8 Other Specified Infectious And Parasitic Diseases 05/30/2008 ARIAN US PSYD ANN L 136.8 Other Specified Infectious And Parasitic Diseases 05/30/2008 AISLNIN OCONNOR BEVERLY S 136.8 Other Specified Infectious And Parasitic Diseases 05/30/2008 ARIAN US PSYD ANN L 136.8 Other Specified Infectious And Parasitic Diseases 05/30/2008 NELSON TAXI PROPRIETOR, JAVAD 136.8 Other Specified Infectious And Parasitic Diseases 05/30/2008 CLAUDE TAO APRNNDA S 136.8 Other Specified Infectious And Parasitic Diseases 05/30/2008 NELSON ANASTASIA JAVAD 136.8 Other Specified Infectious And Parasitic Diseases 05/30/2008 ARIAN US PSYD ANN L 136.8 Other Specified Infectious And Parasitic Diseases 05/30/2008 ARIAN US PSYD ANN L 136.8 Other Specified Infectious And Parasitic Diseases 05/30/2008 ARIAN US PSYD ANN L 136.8 Other Specified Infectious And Parasitic Diseases 05/30/2008 CLAUDE TAO APRNNDA S 136.8 Other Specified Infectious And Parasitic Diseases 05/30/2008 JASMIN MCKNIGHT APRNIDI A 136.8 Other Specified Infectious And Parasitic Diseases 05/30/2008 NELSON TAXI PROPRIETOR, JAVAD 136.8 Other Specified Infectious And Parasitic Diseases 05/30/2008 ARIAN US PSYD ANN L 136.8 Other Specified Infectious And Parasitic Diseases 05/30/2008 ARIAN US PSYD ANN L 136.8 Other Specified Infectious And Parasitic Diseases 05/30/2008 BEVERLY TAO APRN S 136.8 Other Specified Infectious And Parasitic Diseases 05/30/2008 ARIAN US PSYD ANN L 136.8 Other Specified Infectious And Parasitic Diseases 05/30/2008 ARIAN US PSYD ANN L 136.8 Other Specified Infectious And Parasitic Diseases 05/30/2008 ROXANNA OCONNOR CATALINA A 136.8 Other Specified Infectious And Parasitic Diseases 05/30/2008 ARIAN US PSYD ANN L 136.8 Other Specified Infectious And Parasitic Diseases 05/30/2008 ARIAN US PSYD ANN L 136.8 Other Specified Infectious And Parasitic Diseases 05/30/2008 ARIAN US PSYD ANN L 136.8 Other Specified Infectious And Parasitic Diseases 06/06/2008 729.5 Pain In Limb 06/06/2008 729.5 Pain In Limb 06/06/2008 729.5 Pain In Limb 06/06/2008 BEVERLY TAO APRN S 729.5 Pain In Limb 06/06/2008 ARIAN US PSYD ANN L 729.5 Pain In Limb 06/06/2008 RAIAN US PSYD ANN L 729.5 Pain In Limb 06/06/2008 729.5 Pain In Limb 06/06/2008 ARIAN US PSYD ANN L 729.5 Pain In Limb 06/06/2008 729.5 Pain In Limb 06/06/2008 729.5 Pain In Limb 06/06/2008 729.5 Pain In Limb 06/06/2008 729.5 Pain In Limb 06/06/2008 729.5 Pain In Limb 06/06/2008 729.5 Pain In Limb 06/06/2008 729.5 Pain In Limb 06/06/2008 729.5 Pain In Limb 06/06/2008 729.5 Pain In Limb 06/06/2008 729.5 Pain In Limb 06/06/2008 729.5 Pain In Limb 06/06/2008 729.5 Pain In Limb 06/06/2008 729.5 Pain In Limb 06/06/2008 729.5 Pain In Limb 06/06/2008 ARIAN SU PSYD ANN L 729.5 Pain In Limb 06/06/2008 ARIAN US PSYD ANN L 729.5 Pain In Limb 06/06/2008 WILLARD DORUBAA K 729.5 Pain In Limb 06/06/2008 JERMAINE FERRER APRN 729.5 Pain In Limb 06/06/2008 ARIAN US PSYD ANN L 729.5 Pain In Limb 06/06/2008 JASMIN MCKNIGHT APRNIDI A 729.5 Pain In Limb 06/06/2008 AISLINN OCONNOR BEVERLY S 729.5 Pain In Limb 06/06/2008 JERMAINE FERRER APRN 729.5 Pain In Limb 06/06/2008 ARIAN US PSYD ANN L 729.5 Pain In Limb 06/06/2008 HARLEEN LOU APRN T 729.5 Pain In Limb 06/06/2008 HARLEEN LOU APRN T 729.5 Pain In Limb 06/06/2008 ARIAN US PSYD ANN L 729.5 Pain In Limb 06/06/2008 ARIAN US PSYD ANN L 729.5 Pain In Limb 06/06/2008 LOUISE COBOS MD 729.5 Pain In Limb 06/06/2008 JERMAINE FERRER APRN 729.5 Pain In Limb 06/06/2008 ARIAN US PSYD ANN L 729.5 Pain In Limb 06/06/2008 ARIAN US PSYD ANN L 729.5 Pain In Limb 06/06/2008 ARIAN US PSYD ANN L 729.5 Pain In Limb 06/06/2008 ARIAN US PSYD ANN L 729.5 Pain In Limb 06/06/2008 BEVERLY TAO APRN S 729.5 Pain In Limb 06/06/2008 ARIAN US PSYD ANN L 729.5 Pain In Limb 06/06/2008 RUBA WILLARD DOA K 729.5 Pain In Limb 06/06/2008 LOUISE COBOS MD 729.5 Pain In Limb 06/06/2008 ARIAN US PSYD ANN L 729.5 Pain In Limb 06/06/2008 AISLINNCHICHI OCONNOR, BEVERLY S 729.5 Pain In Limb 06/06/2008 ARIAN US PSYD ANN L 729.5 Pain In Limb 06/06/2008 ARIAN US PSYD ANN L 729.5 Pain In Limb 06/06/2008 AISLINN OCONNOR BEVERLY S 729.5 Pain In Limb 06/06/2008 ARIAN US PSYD ANN L 729.5 Pain In Limb 06/06/2008 NELSON TAXI PROPRIETOR, JAVAD 729.5 Pain In Limb 06/06/2008 AISLINNCHICHI OCONNOR, BEVERLY S 729.5 Pain In Limb 06/06/2008 NELSON TAXI PROPRIETOR, JAVAD 729.5 Pain In Limb 06/06/2008 ARIAN US PSYD ANN L 729.5 Pain In Limb 06/06/2008 ARIAN US PSYD ANN L 729.5 Pain In Limb 06/06/2008 ARIAN US PSYD ANN L 729.5 Pain In Limb 06/06/2008 AISLINN OCONNOR BEVERLY S 729.5 Pain In Limb 06/06/2008 ROXANNAKassi OCONNOR CATALINA A 729.5 Pain In Limb 06/06/2008 NELSON TAXI PROPRIETOR, JAVAD 729.5 Pain In Limb 06/06/2008 ARIAN US PSYD ANN L 729.5 Pain In Limb 06/06/2008 ARIAN US PSYD ANN L 729.5 Pain In Limb 06/06/2008 AISLINN OCONNOR BEVERLY S 729.5 Pain In Limb 06/06/2008 ARIAN US PSYD ANN L 729.5 Pain In Limb 06/06/2008 ARIAN US PSYD ANN L 729.5 Pain In Limb 06/06/2008 ROXANNAKassi OCONNOR CATALIAN A 729.5 Pain In Limb 06/06/2008 ARIAN US PSYD ANN L 729.5 Pain In Limb 06/06/2008 ARIAN US PSYD ANN L 729.5 Pain In Limb 06/06/2008 ARIAN US PSYD ANN L 729.5 Pain In Limb 07/02/2008 794.17 Abnormal Electromyogram (emg) 07/02/2008 794.17 Abnormal Electromyogram (emg) 07/02/2008 794.17 Abnormal Electromyogram (emg) 07/02/2008 BEVERLY TAO APRN 794.17 Abnormal Electromyogram (emg) 07/02/2008 ARIAN US PSYD ANN L 794.17 Abnormal Electromyogram (emg) 07/02/2008 ARIAN US PSYD ANN L 794.17 Abnormal Electromyogram (emg) 07/02/2008 794.17 Abnormal Electromyogram (emg) 07/02/2008 ARIAN US PSYD ANN L 794.17 Abnormal Electromyogram (emg) 07/02/2008 794.17 Abnormal Electromyogram (emg) 07/02/2008 794.17 Abnormal Electromyogram (emg) 07/02/2008 794.17 Abnormal Electromyogram (emg) 07/02/2008 794.17 Abnormal Electromyogram (emg) 07/02/2008 794.17 Abnormal Electromyogram (emg) 07/02/2008 794.17 Abnormal Electromyogram (emg) 07/02/2008 794.17 Abnormal Electromyogram (emg) 07/02/2008 794.17 Abnormal Electromyogram (emg) 07/02/2008 794.17 Abnormal Electromyogram (emg) 07/02/2008 794.17 Abnormal Electromyogram (emg) 07/02/2008 794.17 Abnormal Electromyogram (emg) 07/02/2008 794.17 Abnormal Electromyogram (emg) 07/02/2008 794.17 Abnormal Electromyogram (emg) 07/02/2008 794.17 Abnormal Electromyogram (emg) 07/02/2008 ARIAN US PSYD ANN L 794.17 Abnormal Electromyogram (emg) 07/02/2008 ARIAN US PSYD ANN L 794.17 Abnormal Electromyogram (emg) 07/02/2008 LUCIANO WILLARD DO 794.17 Abnormal Electromyogram (emg) 07/02/2008 JERMAINE FERRER APRN 794.17 Abnormal Electromyogram (emg) 07/02/2008 ARIAN US PSYD ANN L 794.17 Abnormal Electromyogram (emg) 07/02/2008 CATALINA MCKNIGHT APRN 794.17 Abnormal Electromyogram (emg) 07/02/2008 BEVERLY TAO APRN S 794.17 Abnormal Electromyogram (emg) 07/02/2008 JERMAINE FERRER APRN 794.17 Abnormal Electromyogram (emg) 07/02/2008 MCCLEEARY PSYD, DAISHA L 794.17 Abnormal Electromyogram (emg) 07/02/2008 HARLEEN LOU APRN T 794.17 Abnormal Electromyogram (emg) 07/02/2008 DASHA TAXI PROPRIETOR HARLEEN T 794.17 Abnormal Electromyogram (emg) 07/02/2008 MCCLEEARY PSYD, DAISHA L 794.17 Abnormal Electromyogram (emg) 07/02/2008 MCCLEEARY PSYD, DAISHA L 794.17 Abnormal Electromyogram (emg) 07/02/2008 LOUISE COBOS MD 794.17 Abnormal Electromyogram (emg) 07/02/2008 JERMAINE FERRER APRN 794.17 Abnormal Electromyogram (emg) 07/02/2008 MCCLEEARY PSYD, DAISHA L 794.17 Abnormal Electromyogram (emg) 07/02/2008 MCCLEEARY PSYD, DAISHA L 794.17 Abnormal Electromyogram (emg) 07/02/2008 MCCLEEARY PSYD, DAISHA L 794.17 Abnormal Electromyogram (emg) 07/02/2008 MCCLEEARY PSYD, DAISHA L 794.17 Abnormal Electromyogram (emg) 07/02/2008 BEVERLY TAO APRN S 794.17 Abnormal Electromyogram (emg) 07/02/2008 MCCLEEARY PSYD, DAISHA L 794.17 Abnormal Electromyogram (emg) 07/02/2008 LUCIANO WILLARD DO 794.17 Abnormal Electromyogram (emg) 07/02/2008 LOUISE COBOS MD 794.17 Abnormal Electromyogram (emg) 07/02/2008 MCCLEEARY PSYD, DAISHA L 794.17 Abnormal Electromyogram (emg) 07/02/2008 BEVERLY TAO APRN S 794.17 Abnormal Electromyogram (emg) 07/02/2008 MCCLEEARY PSYD, DAISHA L 794.17 Abnormal Electromyogram (emg) 07/02/2008 MCCLEEARY PSYD, DAISHA L 794.17 Abnormal Electromyogram (emg) 07/02/2008 AISLINN TAXI PROPRIETOR, BEVERLY S 794.17 Abnormal Electromyogram (emg) 07/02/2008 MCCLEEARY PSYD, DAISHA L 794.17 Abnormal Electromyogram (emg) 07/02/2008 NELSON TAXI PROPRIETOR, JAVAD 794.17 Abnormal Electromyogram (emg) 07/02/2008 AISLINN TAXI PROPRIETOR, BEVERLY S 794.17 Abnormal Electromyogram (emg) 07/02/2008 NELSON TAXI PROPRIETOR, JAVAD 794.17 Abnormal Electromyogram (emg) 07/02/2008 MCCLEEARY PSYD, DAISHA L 794.17 Abnormal Electromyogram (emg) 07/02/2008 MCCLEEARY PSYD, DAISHA L 794.17 Abnormal Electromyogram (emg) 07/02/2008 MCCLEEARY PSYD, DAISHA L 794.17 Abnormal Electromyogram (emg) 07/02/2008 AISLINN TAXI PROPRIETOR, BEVERLY S 794.17 Abnormal Electromyogram (emg) 07/02/2008 ROXANNA TAXI PROPRIETOR, CATALINA A 794.17 Abnormal Electromyogram (emg) 07/02/2008 NELSON TAXI PROPRIETOR, JAVAD 794.17 Abnormal Electromyogram (emg) 07/02/2008 MCCLEEARY PSYD, DAISHA L 794.17 Abnormal Electromyogram (emg) 07/02/2008 MCCLEEARY PSYD, DAISHA L 794.17 Abnormal Electromyogram (emg) 07/02/2008 AISLINN TAXI PROPRIETOR, BEVERLY S 794.17 Abnormal Electromyogram (emg) 07/02/2008 MCCLEEARY PSYD, DAISHA L 794.17 Abnormal Electromyogram (emg) 07/02/2008 MCCLEEARY PSYD, DAISHA L 794.17 Abnormal Electromyogram (emg) 07/02/2008 ROXANNA TAXI PROPRIETOR, CATALINA A 794.17 Abnormal Electromyogram (emg) 07/02/2008 MCCLEEARY PSYD, DAISHA L 794.17 Abnormal Electromyogram (emg) 07/02/2008 MCCLEEARY PSYD, DAISHA L 794.17 Abnormal Electromyogram (emg) 07/02/2008 MCCLEEARY PSYD, DAISHA L 794.17 Abnormal Electromyogram (emg) 12/25/2008 477.0 Allergic Rhinitis Due To Pollen 12/25/2008 477.0 Allergic Rhinitis Due To Pollen 12/25/2008 477.0 Allergic Rhinitis Due To Pollen 12/25/2008 BEVERLY TAO APRN 477.0 Allergic Rhinitis Due To Pollen 12/25/2008 ARIAN US PSYD ANN L 477.0 Allergic Rhinitis Due To Pollen 12/25/2008 ARIAN US PSYD ANN L 477.0 Allergic Rhinitis Due To Pollen 12/25/2008 477.0 Allergic Rhinitis Due To Pollen 12/25/2008 ARIAN US PSYD ANN L 477.0 Allergic Rhinitis Due To Pollen 12/25/2008 477.0 Allergic Rhinitis Due To Pollen 12/25/2008 477.0 Allergic Rhinitis Due To Pollen 12/25/2008 477.0 Allergic Rhinitis Due To Pollen 12/25/2008 477.0 Allergic Rhinitis Due To Pollen 12/25/2008 477.0 Allergic Rhinitis Due To Pollen 12/25/2008 477.0 Allergic Rhinitis Due To Pollen 12/25/2008 477.0 Allergic Rhinitis Due To Pollen 12/25/2008 477.0 Allergic Rhinitis Due To Pollen 12/25/2008 477.0 Allergic Rhinitis Due To Pollen 12/25/2008 477.0 Allergic Rhinitis Due To Pollen 12/25/2008 477.0 Allergic Rhinitis Due To Pollen 12/25/2008 477.0 Allergic Rhinitis Due To Pollen 12/25/2008 477.0 Allergic Rhinitis Due To Pollen 12/25/2008 477.0 Allergic Rhinitis Due To Pollen 12/25/2008 ARIAN US PSYD ANN L 477.0 Allergic Rhinitis Due To Pollen 12/25/2008 ARIAN US PSYD ANN L 477.0 Allergic Rhinitis Due To Pollen 12/25/2008 LUCIANO WILLARD DO 477.0 Allergic Rhinitis Due To Pollen 12/25/2008 JERMAINE FERRER APRN 477.0 Allergic Rhinitis Due To Pollen 12/25/2008 ARIAN US PSYD ANN L 477.0 Allergic Rhinitis Due To Pollen 12/25/2008 CATALINA MCKNIGHT APRN 477.0 Allergic Rhinitis Due To Pollen 12/25/2008 AISLINNCHICHI OCONNOR, BEVERLY S 477.0 Allergic Rhinitis Due To Pollen 12/25/2008 JERMAINE FERRER APRN 477.0 Allergic Rhinitis Due To Pollen 12/25/2008 ABEBA GARZA, DAISHA L 477.0 Allergic Rhinitis Due To Pollen 12/25/2008 HARLEEN LOU APRN T 477.0 Allergic Rhinitis Due To Pollen 12/25/2008 HARLEEN LOU APRN T 477.0 Allergic Rhinitis Due To Pollen 12/25/2008 ABEBA GARZA, DAISHA L 477.0 Allergic Rhinitis Due To Pollen 12/25/2008 ABEBA GARZA, DAISHA L 477.0 Allergic Rhinitis Due To Pollen 12/25/2008 LOUISE COBOS MD 477.0 Allergic Rhinitis Due To Pollen 12/25/2008 JERMAINE FERRER APRN 477.0 Allergic Rhinitis Due To Pollen 12/25/2008 ARIAN US PSYD ANN L 477.0 Allergic Rhinitis Due To Pollen 12/25/2008 ABEBA GARZA, DAISHA L 477.0 Allergic Rhinitis Due To Pollen 12/25/2008 ABEBA GARZA, DAISHA L 477.0 Allergic Rhinitis Due To Pollen 12/25/2008 ARIAN US PSYD ANN L 477.0 Allergic Rhinitis Due To Pollen 12/25/2008 CLAUDE TAO APRNNDA S 477.0 Allergic Rhinitis Due To Pollen 12/25/2008 ARIAN US PSYD ANN L 477.0 Allergic Rhinitis Due To Pollen 12/25/2008 LUCIANO WILLARD DO 477.0 Allergic Rhinitis Due To Pollen 12/25/2008 LOUISE COBOS MD 477.0 Allergic Rhinitis Due To Pollen 12/25/2008 ARIAN US PSYD ANN L 477.0 Allergic Rhinitis Due To Pollen 12/25/2008 CLAUDE TAO APRNNDA S 477.0 Allergic Rhinitis Due To Pollen 12/25/2008 ARIAN US PSYD ANN L 477.0 Allergic Rhinitis Due To Pollen 12/25/2008 ARIAN US PSYD ANN L 477.0 Allergic Rhinitis Due To Pollen 12/25/2008 CLAUDE TAO APRNNDA S 477.0 Allergic Rhinitis Due To Pollen 12/25/2008 MINGOEARY PSYD, DAISHA L 477.0 Allergic Rhinitis Due To Pollen 12/25/2008 MADAI DAMON APRNETTE 477.0 Allergic Rhinitis Due To Pollen 12/25/2008 BEVERLY TAO APRN S 477.0 Allergic Rhinitis Due To Pollen 12/25/2008 MADAI DAMON APRNETTE 477.0 Allergic Rhinitis Due To Pollen 12/25/2008 MCCLEEARY PSYD, DAISHA L 477.0 Allergic Rhinitis Due To Pollen 12/25/2008 MCCLEEARY PSYD, DAISHA L 477.0 Allergic Rhinitis Due To Pollen 12/25/2008 MCCLEEARY PSYD, DAISHA L 477.0 Allergic Rhinitis Due To Pollen 12/25/2008 BEVERLY TAO APRN S 477.0 Allergic Rhinitis Due To Pollen 12/25/2008 ROXANNA OCONNOR, CATALINA A 477.0 Allergic Rhinitis Due To Pollen 12/25/2008 MADAI DAMON APRNETTE 477.0 Allergic Rhinitis Due To Pollen 12/25/2008 MCCLEEARY PSYD, DAISHA L 477.0 Allergic Rhinitis Due To Pollen 12/25/2008 MCCLEEARY PSYD, DAISHA L 477.0 Allergic Rhinitis Due To Pollen 12/25/2008 BEVERLY TAO APRN S 477.0 Allergic Rhinitis Due To Pollen 12/25/2008 MCCLEEARY PSYD, DAISHA L 477.0 Allergic Rhinitis Due To Pollen 12/25/2008 CLINTONLEEARY PSYD, DAISHA L 477.0 Allergic Rhinitis Due To Pollen 12/25/2008 ROXANNACARLOS EDUARDO OCONNOR, CATALINA A 477.0 Allergic Rhinitis Due To Pollen 12/25/2008 MCCLEEARY PSYD, DAISHA L 477.0 Allergic Rhinitis Due To Pollen 12/25/2008 MCCLEEARY PSYD, DAISHA L 477.0 Allergic Rhinitis Due To Pollen 12/25/2008 MCCLEEARY PSYD, DAISHA L 477.0 Allergic Rhinitis Due To Pollen 01/30/2009 784.0 Headache 01/30/2009 784.0 Headache 01/30/2009 784.0 Headache 01/30/2009 BEVERLY TAO APRN S 784.0 Headache 01/30/2009 MCCSINAEARY PSYD, DAISHA L 784.0 Headache 01/30/2009 MCCLEEARY PSYD, DAISHA L 784.0 Headache 01/30/2009 784.0 Headache 01/30/2009 MCCLEEARY PSYD, DAISHA L 784.0 Headache 01/30/2009 784.0 Headache 01/30/2009 784.0 Headache 01/30/2009 784.0 Headache 01/30/2009 784.0 Headache 01/30/2009 784.0 Headache 01/30/2009 784.0 Headache 01/30/2009 784.0 Headache 01/30/2009 784.0 Headache 01/30/2009 784.0 Headache 01/30/2009 784.0 Headache 01/30/2009 784.0 Headache 01/30/2009 784.0 Headache 01/30/2009 784.0 Headache 01/30/2009 784.0 Headache 01/30/2009 MCCLIBBY GARZA, DAISHA L 784.0 Headache 01/30/2009 MCCSINAEARDarrell PSYD, DAISHA L 784.0 Headache 01/30/2009 LUCIANO WILLARD DO 784.0 Headache 01/30/2009 JERMAINE FERRER APRN 784.0 Headache 01/30/2009 MCCLIBBY GARZA, DAISHA L 784.0 Headache 01/30/2009 CATALINA MCKNIGHT APRN A 784.0 Headache 01/30/2009 BEVERLY TAO APRN S 784.0 Headache 01/30/2009 JERMAINE FERRER APRN 784.0 Headache 01/30/2009 ABEBA GARZA, DAISHA L 784.0 Headache 01/30/2009 DASHA ANASTASIA, HARLEEN T 784.0 Headache 01/30/2009 DASHA OCONNOR HARLEEN T 784.0 Headache 01/30/2009 MCCLIBBY GARZA, DAISHA L 784.0 Headache 01/30/2009 MCCSINAEARDarrell PSBETHANY, DAISHA L 784.0 Headache 01/30/2009 LOUISE COBOS MD 784.0 Headache 01/30/2009 JERMAINE FERRER APRN 784.0 Headache 01/30/2009 MCCLEEARY PSYD, DAISHA L 784.0 Headache 01/30/2009 MCCLEEARY PSYD, DAISHA L 784.0 Headache 01/30/2009 MCCLEEARY PSYD, DAISHA L 784.0 Headache 01/30/2009 MCCLEEARY PSYD, DAISHA L 784.0 Headache 01/30/2009 AISLINN TAXI PROPRIETOR, BEVERLY S 784.0 Headache 01/30/2009 MCCLEEARY PSYD, DAISHA L 784.0 Headache 01/30/2009 LUCIANO WILLARD DO K 784.0 Headache 01/30/2009 LOUISE COBOS MD 784.0 Headache 01/30/2009 MCCLEEARY PSYD, DAISHA L 784.0 Headache 01/30/2009 AISLINN TAXI PROPRIETOR, BEVERLY S 784.0 Headache 01/30/2009 MCCLEEARY PSYD, DAISHA L 784.0 Headache 01/30/2009 MCCLEEARY PSYD, DAISHA L 784.0 Headache 01/30/2009 AISLINN TAXI PROPRIETOR, BEVERLY S 784.0 Headache 01/30/2009 MCCLEEARY PSYD, DAISHA L 784.0 Headache 01/30/2009 NELSON TAXI PROPRIETOR, JAVAD 784.0 Headache 01/30/2009 AISLINN TAXI PROPRIETOR, BEVERLY S 784.0 Headache 01/30/2009 NELSON TAXI PROPRIETOR, JAVAD 784.0 Headache 01/30/2009 MCCLEEARY PSYD, DAISHA L 784.0 Headache 01/30/2009 MCCLEEARY PSYD, DAISHA L 784.0 Headache 01/30/2009 MCCLEEARY PSYD, DAISHA L 784.0 Headache 01/30/2009 AISLINN TAXI PROPRIETOR, BEVERLY S 784.0 Headache 01/30/2009 ROXANNA TAXI PROPRIETOR, CATALINA A 784.0 Headache 01/30/2009 NELSON TAXI PROPRIETOR, JAVAD 784.0 Headache 01/30/2009 MCCLEEARY PSYD, DAISHA L 784.0 Headache 01/30/2009 MCCLEEARY PSYD, DAISHA L 784.0 Headache 01/30/2009 AISLINN TAXI PROPRIETOR, BEVERLY S 784.0 Headache 01/30/2009 MCCLIBBY GARZA, DAISHA L 784.0 Headache 01/30/2009 MCCLEEARY GREG, DAISHA L 784.0 Headache 01/30/2009 ROXANNA OCONNOR CATALINA A 784.0 Headache 01/30/2009 MCCLEEARY GREG, DAISHA L 784.0 Headache 01/30/2009 MCCLEEARY GREG, DAISHA L 784.0 Headache 01/30/2009 MCCLEEARY GREG, DAISHA L 784.0 Headache 07/08/2009 611.71 Breast Pain 07/08/2009 719.47 Pain In Joint , Ankle And Foot 07/08/2009 611.71 Breast Pain 07/08/2009 719.47 Pain In Joint , Ankle And Foot 07/08/2009 611.71 Breast Pain 07/08/2009 719.47 Pain In Joint , Ankle And Foot 07/08/2009 BEVERLY TAO APRN S 611.71 Breast Pain 07/08/2009 BEVERLY TAO APRN S 719.47 Pain In Joint, Ankle And Foot 07/08/2009 MCCARIAN SOUZA PSYD ANN L 611.71 Breast Pain 07/08/2009 MCCARIAN SOUZA PSYD ANN L 719.47 Pain In Joint, Ankle And Foot 07/08/2009 MCCARIAN SOUZA PSYD ANN L 611.71 Breast Pain 07/08/2009 ARIAN US PSYD ANN L 719.47 Pain In Joint, Ankle And Foot 07/08/2009 611.71 Breast Pain 07/08/2009 719.47 Pain In Joint , Ankle And Foot 07/08/2009 ARIAN US PSYD ANN L 611.71 Breast Pain 07/08/2009 MCCARIAN SOUZA PSYD ANN L 719.47 Pain In Joint, Ankle And Foot 07/08/2009 611.71 Breast Pain 07/08/2009 719.47 Pain In Joint , Ankle And Foot 07/08/2009 611.71 Breast Pain 07/08/2009 719.47 Pain In Joint , Ankle And Foot 07/08/2009 611.71 Breast Pain 07/08/2009 719.47 Pain In Joint , Ankle And Foot 07/08/2009 611.71 Breast Pain 07/08/2009 719.47 Pain In Joint , Ankle And Foot 07/08/2009 611.71 Breast Pain 07/08/2009 719.47 Pain In Joint , Ankle And Foot 07/08/2009 611.71 Breast Pain 07/08/2009 719.47 Pain In Joint , Ankle And Foot 07/08/2009 611.71 Breast Pain 07/08/2009 719.47 Pain In Joint , Ankle And Foot 07/08/2009 611.71 Breast Pain 07/08/2009 719.47 Pain In Joint , Ankle And Foot 07/08/2009 611.71 Breast Pain 07/08/2009 719.47 Pain In Joint , Ankle And Foot 07/08/2009 611.71 Breast Pain 07/08/2009 719.47 Pain In Joint , Ankle And Foot 07/08/2009 611.71 Breast Pain 07/08/2009 719.47 Pain In Joint , Ankle And Foot 07/08/2009 611.71 Breast Pain 07/08/2009 719.47 Pain In Joint , Ankle And Foot 07/08/2009 611.71 Breast Pain 07/08/2009 719.47 Pain In Joint , Ankle And Foot 07/08/2009 611.71 Breast Pain 07/08/2009 719.47 Pain In Joint , Ankle And Foot 07/08/2009 ARIAN US PSYD L 611.71 Breast Pain 07/08/2009 ARIAN US PSYD L 719.47 Pain In Joint, Ankle And Foot 07/08/2009 ARIAN US PSYD L 611.71 Breast Pain 07/08/2009 ARIAN US PSYD L 719.47 Pain In Joint, Ankle And Foot 07/08/2009 LUCIANO WILLARD DO K 611.71 Breast Pain 07/08/2009 WILLARD LUCIANO MORRIS 719.47 Pain In Joint, Ankle And Foot 07/08/2009 JERMAINE FERRER APRN 611.71 Breast Pain 07/08/2009 JERMAINE FERRER APRN 719.47 Pain In Joint, Ankle And Foot 07/08/2009 ARIAN US PSYD L 611.71 Breast Pain 07/08/2009 ARIAN US PSYD L 719.47 Pain In Joint, Ankle And Foot 07/08/2009 ROXANNACATALINA THIBODEAUX APRN A 611.71 Breast Pain 07/08/2009 ROXANNAJASMIN Solitario APRNIDI A 719.47 Pain In Joint, Ankle And Foot 07/08/2009 CLAUDE TAO APRNNDA S 611.71 Breast Pain 07/08/2009 AISLINN OCONNOR BEVERLY S 719.47 Pain In Joint, Ankle And Foot 07/08/2009 JERMAINE FERRER APRN 611.71 Breast Pain 07/08/2009 JERMAINE FERRER APRN 719.47 Pain In Joint, Ankle And Foot 07/08/2009 ARIAN US PSYD L 611.71 Breast Pain 07/08/2009 ARIAN US PSYD L 719.47 Pain In Joint, Ankle And Foot 07/08/2009 DASHA OCONNOR HARLEEN T 611.71 Breast Pain 07/08/2009 DASHA OCONNOR HARLEEN T 719.47 Pain In Joint, Ankle And Foot 07/08/2009 DASHA OCONNOR HARLEEN T 611.71 Breast Pain 07/08/2009 DASHA OCONNOR HARLEEN T 719.47 Pain In Joint, Ankle And Foot 07/08/2009 ARIAN US PSYD L 611.71 Breast Pain 07/08/2009 ARIAN US PSYD L 719.47 Pain In Joint, Ankle And Foot 07/08/2009 ARIAN US PSYD L 611.71 Breast Pain 07/08/2009 ARIAN US PSYD L 719.47 Pain In Joint, Ankle And Foot 07/08/2009 LOUISE COBOS MD 611.71 Breast Pain 07/08/2009 LOUISE COBOS MD 719.47 Pain In Joint, Ankle And Foot 07/08/2009 JERMAINE FERRER APRN 611.71 Breast Pain 07/08/2009 JERMAINE FERRER APRN 719.47 Pain In Joint, Ankle And Foot 07/08/2009 ARIAN US PSYD L 611.71 Breast Pain 07/08/2009 ARIAN US PSYD ANN L 719.47 Pain In Joint, Ankle And Foot 07/08/2009 ARIAN US PSYD ANN L 611.71 Breast Pain 07/08/2009 ARIAN US PSYD ANN L 719.47 Pain In Joint, Ankle And Foot 07/08/2009 ARIAN US PSYD ANN L 611.71 Breast Pain 07/08/2009 ARIAN US PSYD ANN L 719.47 Pain In Joint, Ankle And Foot 07/08/2009 ARIAN US PSYD ANN L 611.71 Breast Pain 07/08/2009 MCCARIAN SOUZA PSYD ANN L 719.47 Pain In Joint, Ankle And Foot 07/08/2009 AISLINN OCONNOR BEVERLY S 611.71 Breast Pain 07/08/2009 AISLINN OCONNOR BEVERLY S 719.47 Pain In Joint, Ankle And Foot 07/08/2009 ARIAN US PSYD ANN L 611.71 Breast Pain 07/08/2009 ARIAN US PSYD ANN L 719.47 Pain In Joint, Ankle And Foot 07/08/2009 WILLARD LUCIANO MORRIS K 611.71 Breast Pain 07/08/2009 WILLARD LUCIANO MORRIS K 719.47 Pain In Joint, Ankle And Foot 07/08/2009 LOUISE COBOS MD 611.71 Breast Pain 07/08/2009 LOUISE COBOS MD 719.47 Pain In Joint, Ankle And Foot 07/08/2009 ARIAN US PSYD ANN L 611.71 Breast Pain 07/08/2009 ARIAN US PSYD ANN L 719.47 Pain In Joint, Ankle And Foot 07/08/2009 AISLINN OCONNOR, BEVERLY S 611.71 Breast Pain 07/08/2009 AISLINNCHICHI OCONNOR, BEVERLY S 719.47 Pain In Joint, Ankle And Foot 07/08/2009 ARIAN US PSYD ANN L 611.71 Breast Pain 07/08/2009 ARIAN US PSYD ANN L 719.47 Pain In Joint, Ankle And Foot 07/08/2009 ARIAN US PSYD ANN L 611.71 Breast Pain 07/08/2009 ARIAN US PSYD ANN L 719.47 Pain In Joint, Ankle And Foot 07/08/2009 AISLINN TAXI PROPRIETOR, BEVERLY S 611.71 Breast Pain 07/08/2009 AISLINN TAXI PROPRIETOR, BEVERLY S 719.47 Pain In Joint, Ankle And Foot 07/08/2009 ARIAN US PSYD L 611.71 Breast Pain 07/08/2009 ARIAN US PSYD ANN L 719.47 Pain In Joint, Ankle And Foot 07/08/2009 NELSON TAXI PROPRIETOR, JAVAD 611.71 Breast Pain 07/08/2009 NELSON TAXI PROPRIETOR, JAVAD 719.47 Pain In Joint, Ankle And Foot 07/08/2009 AISLINN APRN, BEVERLY S 611.71 Breast Pain 07/08/2009 AISLINN TAXI PROPRIETOR, BEVERLY S 719.47 Pain In Joint, Ankle And Foot 07/08/2009 NELSON TAXI PROPRIETOR, JAVAD 611.71 Breast Pain 07/08/2009 NELSON TAXI PROPRIETOR, JAVAD 719.47 Pain In Joint, Ankle And Foot 07/08/2009 ARIAN US PSYD ANN L 611.71 Breast Pain 07/08/2009 ARIAN US PSYD ANN L 719.47 Pain In Joint, Ankle And Foot 07/08/2009 ARIAN US PSYD L 611.71 Breast Pain 07/08/2009 ARIAN US PSYD ANN L 719.47 Pain In Joint, Ankle And Foot 07/08/2009 ARIAN US PSYD ANN L 611.71 Breast Pain 07/08/2009 ARIAN US PSYD ANN L 719.47 Pain In Joint, Ankle And Foot 07/08/2009 AISLINN OCONNOR, BEVERLY S 611.71 Breast Pain 07/08/2009 AISLINN TAXI PROPRIETOR, BEVERLY S 719.47 Pain In Joint, Ankle And Foot 07/08/2009 ROXANNA TAXI PROPRIETOR, CATALINA A 611.71 Breast Pain 07/08/2009 ROXANNA TAXI PROPRIETOR, CATALINA A 719.47 Pain In Joint, Ankle And Foot 07/08/2009 NELSON TAXI PROPRIETOR, JAVAD 611.71 Breast Pain 07/08/2009 NELSON TAXI PROPRIETOR, JAVAD 719.47 Pain In Joint, Ankle And Foot 07/08/2009 ARIAN US PSYD ANN L 611.71 Breast Pain 07/08/2009 ARIAN US PSYD ANN L 719.47 Pain In Joint, Ankle And Foot 07/08/2009 ARIAN US PSYD ANN L 611.71 Breast Pain 07/08/2009 ARIAN US PSYD ANN L 719.47 Pain In Joint, Ankle And Foot 07/08/2009 BEVERLY TAO APRN S 611.71 Breast Pain 07/08/2009 BEVERLY TAO APRN S 719.47 Pain In Joint, Ankle And Foot 07/08/2009 ARIAN US PSYD ANN L 611.71 Breast Pain 07/08/2009 ARIAN US PSYD ANN L 719.47 Pain In Joint, Ankle And Foot 07/08/2009 ARIAN US PSYD ANN L 611.71 Breast Pain 07/08/2009 ARIAN US PSYD ANN L 719.47 Pain In Joint, Ankle And Foot 07/08/2009 CATALINA MCKNIGHT APRN A 611.71 Breast Pain 07/08/2009 JASMIN MCKNIGHT APRNIDI A 719.47 Pain In Joint, Ankle And Foot 07/08/2009 ARIAN US PSYD ANN L 611.71 Breast Pain 07/08/2009 ARIAN US PSYD ANN L 719.47 Pain In Joint, Ankle And Foot 07/08/2009 ARIAN US PSYD ANN L 611.71 Breast Pain 07/08/2009 ARIAN US PSYD ANN L 719.47 Pain In Joint, Ankle And Foot 07/08/2009 ARIAN US PSYD ANN L 611.71 Breast Pain 07/08/2009 ARIAN US PSYD ANN L 719.47 Pain In Joint, Ankle And Foot 07/16/2009 686.9 Unspecified Local Infection Of Skin And Subcutaneous Tissue 07/16/2009 686.9 Unspecified Local Infection Of Skin And Subcutaneous Tissue 07/16/2009 686.9 Unspecified Local Infection Of Skin And Subcutaneous Tissue 07/16/2009 BEVERLY TAO APRN S 686.9 Unspecified Local Infection Of Skin And Subcutaneous Tissue 07/16/2009 ARIAN US PSYD ANN L 686.9 Unspecified Local Infection Of Skin And Subcutaneous Tissue 07/16/2009 ARIAN US PSYD ANN L 686.9 Unspecified Local Infection Of Skin And Subcutaneous Tissue 07/16/2009 686.9 Unspecified Local Infection Of Skin And Subcutaneous Tissue 07/16/2009 ARIAN US PSYD ANN L 686.9 Unspecified Local Infection Of Skin And Subcutaneous Tissue 07/16/2009 686.9 Unspecified Local Infection Of Skin And Subcutaneous Tissue 07/16/2009 686.9 Unspecified Local Infection Of Skin And Subcutaneous Tissue 07/16/2009 686.9 Unspecified Local Infection Of Skin And Subcutaneous Tissue 07/16/2009 686.9 Unspecified Local Infection Of Skin And Subcutaneous Tissue 07/16/2009 686.9 Unspecified Local Infection Of Skin And Subcutaneous Tissue 07/16/2009 686.9 Unspecified Local Infection Of Skin And Subcutaneous Tissue 07/16/2009 686.9 Unspecified Local Infection Of Skin And Subcutaneous Tissue 07/16/2009 686.9 Unspecified Local Infection Of Skin And Subcutaneous Tissue 07/16/2009 686.9 Unspecified Local Infection Of Skin And Subcutaneous Tissue 07/16/2009 686.9 Unspecified Local Infection Of Skin And Subcutaneous Tissue 07/16/2009 686.9 Unspecified Local Infection Of Skin And Subcutaneous Tissue 07/16/2009 686.9 Unspecified Local Infection Of Skin And Subcutaneous Tissue 07/16/2009 686.9 Unspecified Local Infection Of Skin And Subcutaneous Tissue 07/16/2009 686.9 Unspecified Local Infection Of Skin And Subcutaneous Tissue 07/16/2009 ARIAN US PSYD ANN L 686.9 Unspecified Local Infection Of Skin And Subcutaneous Tissue 07/16/2009 ARIAN US PSYD ANN L 686.9 Unspecified Local Infection Of Skin And Subcutaneous Tissue 07/16/2009 LUCIANO WILLARD DO 686.9 Unspecified Local Infection Of Skin And Subcutaneous Tissue 07/16/2009 JERMAINE FERRER APRN 686.9 Unspecified Local Infection Of Skin And Subcutaneous Tissue 07/16/2009 ARIAN SU PSYD ANN L 686.9 Unspecified Local Infection Of Skin And Subcutaneous Tissue 07/16/2009 CATALINA MCKNIGHT APRN A 686.9 Unspecified Local Infection Of Skin And Subcutaneous Tissue 07/16/2009 AISLINN OCONNOR BEVERLY S 686.9 Unspecified Local Infection Of Skin And Subcutaneous Tissue 07/16/2009 JERMAINE FERRER APRN 686.9 Unspecified Local Infection Of Skin And Subcutaneous Tissue 07/16/2009 ARIAN US PSYD L 686.9 Unspecified Local Infection Of Skin And Subcutaneous Tissue 07/16/2009 HARLEEN LOU APRN T 686.9 Unspecified Local Infection Of Skin And Subcutaneous Tissue 07/16/2009 HARLEEN LOU APRN T 686.9 Unspecified Local Infection Of Skin And Subcutaneous Tissue 07/16/2009 ARIAN US PSYD L 686.9 Unspecified Local Infection Of Skin And Subcutaneous Tissue 07/16/2009 ARIAN US PSYD ANN L 686.9 Unspecified Local Infection Of Skin And Subcutaneous Tissue 07/16/2009 LOUISE COBOS MD 686.9 Unspecified Local Infection Of Skin And Subcutaneous Tissue 07/16/2009 JERMAINE FERRER APRN 686.9 Unspecified Local Infection Of Skin And Subcutaneous Tissue 07/16/2009 ARIAN US PSYD L 686.9 Unspecified Local Infection Of Skin And Subcutaneous Tissue 07/16/2009 ARIAN US PSYD ANN L 686.9 Unspecified Local Infection Of Skin And Subcutaneous Tissue 07/16/2009 ARIAN US PSYD ANN L 686.9 Unspecified Local Infection Of Skin And Subcutaneous Tissue 07/16/2009 ARIAN US PSYD ANN L 686.9 Unspecified Local Infection Of Skin And Subcutaneous Tissue 07/16/2009 BEVERLY TAO APRN S 686.9 Unspecified Local Infection Of Skin And Subcutaneous Tissue 07/16/2009 ARIAN US PSYD ANN L 686.9 Unspecified Local Infection Of Skin And Subcutaneous Tissue 07/16/2009 LUCIANO WILLARD DO 686.9 Unspecified Local Infection Of Skin And Subcutaneous Tissue 07/16/2009 LOUISE COBOS MD 686.9 Unspecified Local Infection Of Skin And Subcutaneous Tissue 07/16/2009 ARIAN US PSYD ANN L 686.9 Unspecified Local Infection Of Skin And Subcutaneous Tissue 07/16/2009 CLAUDE TAO APRNNDA S 686.9 Unspecified Local Infection Of Skin And Subcutaneous Tissue 07/16/2009 ARIAN US PSYD ANN L 686.9 Unspecified Local Infection Of Skin And Subcutaneous Tissue 07/16/2009 ARIAN US PSYD ANN L 686.9 Unspecified Local Infection Of Skin And Subcutaneous Tissue 07/16/2009 CLAUDE TAO APRNNDA S 686.9 Unspecified Local Infection Of Skin And Subcutaneous Tissue 07/16/2009 ARIAN US PSYD ANN L 686.9 Unspecified Local Infection Of Skin And Subcutaneous Tissue 07/16/2009 NELSON TAXI PROPRIETOR, JAVAD 686.9 Unspecified Local Infection Of Skin And Subcutaneous Tissue 07/16/2009 LATONYA TAO APRNA S 686.9 Unspecified Local Infection Of Skin And Subcutaneous Tissue 07/16/2009 NELSON TAXI PROPRIETOR JAVAD 686.9 Unspecified Local Infection Of Skin And Subcutaneous Tissue 07/16/2009 ARIAN US PSYD ANN L 686.9 Unspecified Local Infection Of Skin And Subcutaneous Tissue 07/16/2009 ARIAN US PSYD ANN L 686.9 Unspecified Local Infection Of Skin And Subcutaneous Tissue 07/16/2009 ARIAN US PSYD ANN L 686.9 Unspecified Local Infection Of Skin And Subcutaneous Tissue 07/16/2009 CLAUDE TAO APRNNDA S 686.9 Unspecified Local Infection Of Skin And Subcutaneous Tissue 07/16/2009 CATALINA MCKNIGHT APRN A 686.9 Unspecified Local Infection Of Skin And Subcutaneous Tissue 07/16/2009 NELSON TAXI PROPRIETOR, JAVAD 686.9 Unspecified Local Infection Of Skin And Subcutaneous Tissue 07/16/2009 ARIAN US PSYD ANN L 686.9 Unspecified Local Infection Of Skin And Subcutaneous Tissue 07/16/2009 ARIAN US PSYD ANN L 686.9 Unspecified Local Infection Of Skin And Subcutaneous Tissue 07/16/2009 CLAUDE TAO APRNNDA S 686.9 Unspecified Local Infection Of Skin And Subcutaneous Tissue 07/16/2009 ARIAN US PSYD ANN L 686.9 Unspecified Local Infection Of Skin And Subcutaneous Tissue 07/16/2009 ARIAN US PSYD ANN L 686.9 Unspecified Local Infection Of Skin And Subcutaneous Tissue 07/16/2009 ROXANNACATALINA Solitario APRN A 686.9 Unspecified Local Infection Of Skin And Subcutaneous Tissue 07/16/2009 ARIAN US PSYD ANN L 686.9 Unspecified Local Infection Of Skin And Subcutaneous Tissue 07/16/2009 ARIAN US PSYD ANN L 686.9 Unspecified Local Infection Of Skin And Subcutaneous Tissue 07/16/2009 ARIAN US PSYD ANN L 686.9 Unspecified Local Infection Of Skin And Subcutaneous Tissue 09/30/2009 847.0 Sprain/strain Neck 09/30/2009 847.0 Sprain/strain Neck 09/30/2009 847.0 Sprain/strain Neck 09/30/2009 BEVERLY TAO APRN S 847.0 Sprain/strain Neck 09/30/2009 ARIAN US PSYD ANN L 847.0 Sprain/strain Neck 09/30/2009 ARIAN US PSYD ANN L 847.0 Sprain/strain Neck 09/30/2009 847.0 Sprain/strain Neck 09/30/2009 ARIAN US PSYD ANN L 847.0 Sprain/strain Neck 09/30/2009 847.0 Sprain/strain Neck 09/30/2009 847.0 Sprain/strain Neck 09/30/2009 847.0 Sprain/strain Neck 09/30/2009 847.0 Sprain/strain Neck 09/30/2009 847.0 Sprain/strain Neck 09/30/2009 847.0 Sprain/strain Neck 09/30/2009 847.0 Sprain/strain Neck 09/30/2009 847.0 Sprain/strain Neck 09/30/2009 847.0 Sprain/strain Neck 09/30/2009 847.0 Sprain/strain Neck 09/30/2009 847.0 Sprain/strain Neck 09/30/2009 847.0 Sprain/strain Neck 09/30/2009 847.0 Sprain/strain Neck 09/30/2009 847.0 Sprain/strain Neck 09/30/2009 ARIAN US PSYD ANN L 847.0 Sprain/strain Neck 09/30/2009 ARIAN US PSYD ANN L 847.0 Sprain/strain Neck 09/30/2009 LUCIANO WILLARD DO K 847.0 Sprain/strain Neck 09/30/2009 JERMAINE FERRER APRN 847.0 Sprain/strain Neck 09/30/2009 ARIAN US PSYD ANN L 847.0 Sprain/strain Neck 09/30/2009 CATALINA MCKNIGHT APRN A 847.0 Sprain/strain Neck 09/30/2009 LATONYA TAO APRNA S 847.0 Sprain/strain Neck 09/30/2009 JERMAINE FERRER APRN 847.0 Sprain/strain Neck 09/30/2009 ARIAN US PSYD ANN L 847.0 Sprain/strain Neck 09/30/2009 HARLEEN LOU APRN 847.0 Sprain/strain Neck 09/30/2009 HARLEEN LOU APRN 847.0 Sprain/strain Neck 09/30/2009 ARIAN US PSYD ANN L 847.0 Sprain/strain Neck 09/30/2009 ARIAN US PSYD ANN L 847.0 Sprain/strain Neck 09/30/2009 LOUISE COBOS MD 847.0 Sprain/strain Neck 09/30/2009 JERMAINE FERRER APRN 847.0 Sprain/strain Neck 09/30/2009 ARIAN US PSYD ANN L 847.0 Sprain/strain Neck 09/30/2009 ARIAN US PSYD ANN L 847.0 Sprain/strain Neck 09/30/2009 ARIAN US PSYD ANN L 847.0 Sprain/strain Neck 09/30/2009 ARIAN US PSYD ANN L 847.0 Sprain/strain Neck 09/30/2009 BEVERLY TAO APRN S 847.0 Sprain/strain Neck 09/30/2009 ARIAN US PSYD ANN L 847.0 Sprain/strain Neck 09/30/2009 LUCIANO WILLARD DO K 847.0 Sprain/strain Neck 09/30/2009 PAPITO GAYLE, LOUISE 847.0 Sprain/strain Neck 09/30/2009 ABEBA GARZA, DAISHA L 847.0 Sprain/strain Neck 09/30/2009 AISLINN TAXI PROPRIETOR, BEVERLY S 847.0 Sprain/strain Neck 09/30/2009 ABEBA GARZA, DAISHA L 847.0 Sprain/strain Neck 09/30/2009 ABEBA GARZA, DAISHA L 847.0 Sprain/strain Neck 09/30/2009 AISLINN TAXI PROPRIETOR, BEVERLY S 847.0 Sprain/strain Neck 09/30/2009 ARIAN US PSYD ANN L 847.0 Sprain/strain Neck 09/30/2009 NELSON TAXI PROPRIETOR, JAVAD 847.0 Sprain/strain Neck 09/30/2009 AISLINN OCONNOR, BEVERLY S 847.0 Sprain/strain Neck 09/30/2009 NELSON TAXI PROPRIETOR, JAVAD 847.0 Sprain/strain Neck 09/30/2009 ABEBA GARZA, DAISHA L 847.0 Sprain/strain Neck 09/30/2009 ABEBA GARZA, DAISHA L 847.0 Sprain/strain Neck 09/30/2009 ARIAN SU PSYD ANN L 847.0 Sprain/strain Neck 09/30/2009 AISLINN OCONNOR BEVERLY S 847.0 Sprain/strain Neck 09/30/2009 CATALINA MCKNIGHT APRN A 847.0 Sprain/strain Neck 09/30/2009 NELSON TAXI PROPRIETOR, JAVAD 847.0 Sprain/strain Neck 09/30/2009 ABEBA GARZA, DAISHA L 847.0 Sprain/strain Neck 09/30/2009 ARIAN US PSYD ANN L 847.0 Sprain/strain Neck 09/30/2009 AISLINN OCONNOR BEVERLY S 847.0 Sprain/strain Neck 09/30/2009 ABEBA GARZA, DAISHA L 847.0 Sprain/strain Neck 09/30/2009 ABEBA GARZA DAISHA L 847.0 Sprain/strain Neck 09/30/2009 JASMIN MCKNIGHT APRNIDI A 847.0 Sprain/strain Neck 09/30/2009 ARIAN US PSYD ANN L 847.0 Sprain/strain Neck 09/30/2009 ARIAN US PSYD ANN L 847.0 Sprain/strain Neck 09/30/2009 ARIAN US PSYD ANN L 847.0 Sprain/strain Neck 01/07/2010 796.2 Elevated Blood Pressure Reading Without Diagnosis Of Hypertension 01/07/2010 796.2 Elevated Blood Pressure Reading Without Diagnosis Of Hypertension 01/07/2010 796.2 Elevated Blood Pressure Reading Without Diagnosis Of Hypertension 01/07/2010 AISLINN RUIZNBEVERLY S 796.2 Elevated Blood Pressure Reading Without Diagnosis Of Hypertension 01/07/2010 ARIAN US PSYD ANN L 796.2 Elevated Blood Pressure Reading Without Diagnosis Of Hypertension 01/07/2010 ARIAN US PSYD ANN L 796.2 Elevated Blood Pressure Reading Without Diagnosis Of Hypertension 01/07/2010 796.2 Elevated Blood Pressure Reading Without Diagnosis Of Hypertension 01/07/2010 ARIAN US PSYD ANN L 796.2 Elevated Blood Pressure Reading Without Diagnosis Of Hypertension 01/07/2010 796.2 Elevated Blood Pressure Reading Without Diagnosis Of Hypertension 01/07/2010 796.2 Elevated Blood Pressure Reading Without Diagnosis Of Hypertension 01/07/2010 796.2 Elevated Blood Pressure Reading Without Diagnosis Of Hypertension 01/07/2010 796.2 Elevated Blood Pressure Reading Without Diagnosis Of Hypertension 01/07/2010 796.2 Elevated Blood Pressure Reading Without Diagnosis Of Hypertension 01/07/2010 796.2 Elevated Blood Pressure Reading Without Diagnosis Of Hypertension 01/07/2010 796.2 Elevated Blood Pressure Reading Without Diagnosis Of Hypertension 01/07/2010 796.2 Elevated Blood Pressure Reading Without Diagnosis Of Hypertension 01/07/2010 796.2 Elevated Blood Pressure Reading Without Diagnosis Of Hypertension 01/07/2010 796.2 Elevated Blood Pressure Reading Without Diagnosis Of Hypertension 01/07/2010 796.2 Elevated Blood Pressure Reading Without Diagnosis Of Hypertension 01/07/2010 796.2 Elevated Blood Pressure Reading Without Diagnosis Of Hypertension 01/07/2010 796.2 Elevated Blood Pressure Reading Without Diagnosis Of Hypertension 01/07/2010 796.2 Elevated Blood Pressure Reading Without Diagnosis Of Hypertension 01/07/2010 ARIAN US PSYD ANN L 796.2 Elevated Blood Pressure Reading Without Diagnosis Of Hypertension 01/07/2010 ABEBA GARZA DAISHA L 796.2 Elevated Blood Pressure Reading Without Diagnosis Of Hypertension 01/07/2010 SUDHEER MORRIS LUCIANO Reji 796.2 Elevated Blood Pressure Reading Without Diagnosis Of Hypertension 01/07/2010 JERMAINE FERRER APRN D 796.2 Elevated Blood Pressure Reading Without Diagnosis Of Hypertension 01/07/2010 ABEBA GARZA DAISHA L 796.2 Elevated Blood Pressure Reading Without Diagnosis Of Hypertension 01/07/2010 CATALINA MCKNIGHT APRN A 796.2 Elevated Blood Pressure Reading Without Diagnosis Of Hypertension 01/07/2010 BEVERLY TAO APRN 796.2 Elevated Blood Pressure Reading Without Diagnosis Of Hypertension 01/07/2010 JERMAINE FERRER APRN D 796.2 Elevated Blood Pressure Reading Without Diagnosis Of Hypertension 01/07/2010 ARIAN US PSYD ANN L 796.2 Elevated Blood Pressure Reading Without Diagnosis Of Hypertension 01/07/2010 HARLEEN LOU APRN T 796.2 Elevated Blood Pressure Reading Without Diagnosis Of Hypertension 01/07/2010 HARLEEN LOU APRN T 796.2 Elevated Blood Pressure Reading Without Diagnosis Of Hypertension 01/07/2010 ARIAN US PSYD ANN L 796.2 Elevated Blood Pressure Reading Without Diagnosis Of Hypertension 01/07/2010 ARIAN US PSYD ANN L 796.2 Elevated Blood Pressure Reading Without Diagnosis Of Hypertension 01/07/2010 LOUISE COBOS MD 796.2 Elevated Blood Pressure Reading Without Diagnosis Of Hypertension 01/07/2010 JERMAINE FERRER APRN D 796.2 Elevated Blood Pressure Reading Without Diagnosis Of Hypertension 01/07/2010 ABEBA GARZA DAISHA L 796.2 Elevated Blood Pressure Reading Without Diagnosis Of Hypertension 01/07/2010 ARIAN US PSYD ANN L 796.2 Elevated Blood Pressure Reading Without Diagnosis Of Hypertension 01/07/2010 ABEBA GARZA DAISHA L 796.2 Elevated Blood Pressure Reading Without Diagnosis Of Hypertension 01/07/2010 ABEBA GARZA DAISHA L 796.2 Elevated Blood Pressure Reading Without Diagnosis Of Hypertension 01/07/2010 AISLINN OCONNOR, BEVERLY S 796.2 Elevated Blood Pressure Reading Without Diagnosis Of Hypertension 01/07/2010 ARIAN US PSYD ANN L 796.2 Elevated Blood Pressure Reading Without Diagnosis Of Hypertension 01/07/2010 LUCIANO WILLARD DO 796.2 Elevated Blood Pressure Reading Without Diagnosis Of Hypertension 01/07/2010 LOUISE COBOS MD 796.2 Elevated Blood Pressure Reading Without Diagnosis Of Hypertension 01/07/2010 ARIAN US PSYD ANN L 796.2 Elevated Blood Pressure Reading Without Diagnosis Of Hypertension 01/07/2010 AISLINN OCONNOR BEVERLY S 796.2 Elevated Blood Pressure Reading Without Diagnosis Of Hypertension 01/07/2010 ARIAN US PSYD ANN L 796.2 Elevated Blood Pressure Reading Without Diagnosis Of Hypertension 01/07/2010 ARIAN US PSYD ANN L 796.2 Elevated Blood Pressure Reading Without Diagnosis Of Hypertension 01/07/2010 CLAUDE TAO APRNNDA S 796.2 Elevated Blood Pressure Reading Without Diagnosis Of Hypertension 01/07/2010 ARIAN US PSYD ANN L 796.2 Elevated Blood Pressure Reading Without Diagnosis Of Hypertension 01/07/2010 NELSON TAXI PROPRIETOR, JAVAD 796.2 Elevated Blood Pressure Reading Without Diagnosis Of Hypertension 01/07/2010 AISLINN OCONNOR BEVERLY S 796.2 Elevated Blood Pressure Reading Without Diagnosis Of Hypertension 01/07/2010 NELSON TAXI PROPRIETOR, JAVAD 796.2 Elevated Blood Pressure Reading Without Diagnosis Of Hypertension 01/07/2010 ARIAN US PSYD ANN L 796.2 Elevated Blood Pressure Reading Without Diagnosis Of Hypertension 01/07/2010 ARIAN US PSYD ANN L 796.2 Elevated Blood Pressure Reading Without Diagnosis Of Hypertension 01/07/2010 ARIAN US PSYD ANN L 796.2 Elevated Blood Pressure Reading Without Diagnosis Of Hypertension 01/07/2010 AISLINN OCONNOR BEVERLY S 796.2 Elevated Blood Pressure Reading Without Diagnosis Of Hypertension 01/07/2010 JASMIN MCKNIGHT APRNIDI A 796.2 Elevated Blood Pressure Reading Without Diagnosis Of Hypertension 01/07/2010 NELSON TAXI PROPRIETOR, JAVAD 796.2 Elevated Blood Pressure Reading Without Diagnosis Of Hypertension 01/07/2010 ARIAN US PSYD ANN L 796.2 Elevated Blood Pressure Reading Without Diagnosis Of Hypertension 01/07/2010 ARIAN US PSYD ANN L 796.2 Elevated Blood Pressure Reading Without Diagnosis Of Hypertension 01/07/2010 BEVERLY TAO APRN S 796.2 Elevated Blood Pressure Reading Without Diagnosis Of Hypertension 01/07/2010 ARIAN US PSYD ANN L 796.2 Elevated Blood Pressure Reading Without Diagnosis Of Hypertension 01/07/2010 ARIAN US PSYD ANN L 796.2 Elevated Blood Pressure Reading Without Diagnosis Of Hypertension 01/07/2010 ROXANNA OCONNOR CATALINA A 796.2 Elevated Blood Pressure Reading Without Diagnosis Of Hypertension 01/07/2010 ARIAN US PSYD ANN L 796.2 Elevated Blood Pressure Reading Without Diagnosis Of Hypertension 01/07/2010 ARIAN US PSYD ANN L 796.2 Elevated Blood Pressure Reading Without Diagnosis Of Hypertension 01/07/2010 ARIAN US PSYD ANN L 796.2 Elevated Blood Pressure Reading Without Diagnosis Of Hypertension 03/05/2010 272.1 Pure Hyperglyceridemia 03/05/2010 272.1 Pure Hyperglyceridemia 03/05/2010 272.1 Pure Hyperglyceridemia 03/05/2010 BEVERLY TAO APRN S 272.1 Pure Hyperglyceridemia 03/05/2010 ARIAN US PSYD ANN L 272.1 Pure Hyperglyceridemia 03/05/2010 ARIAN US PSYD ANN L 272.1 Pure Hyperglyceridemia 03/05/2010 272.1 Pure Hyperglyceridemia 03/05/2010 ARIAN US PSYD ANN L 272.1 Pure Hyperglyceridemia 03/05/2010 272.1 Pure Hyperglyceridemia 03/05/2010 272.1 Pure Hyperglyceridemia 03/05/2010 272.1 Pure Hyperglyceridemia 03/05/2010 272.1 Pure Hyperglyceridemia 03/05/2010 272.1 Pure Hyperglyceridemia 03/05/2010 272.1 Pure Hyperglyceridemia 03/05/2010 272.1 Pure Hyperglyceridemia 03/05/2010 272.1 Pure Hyperglyceridemia 03/05/2010 272.1 Pure Hyperglyceridemia 03/05/2010 272.1 Pure Hyperglyceridemia 03/05/2010 272.1 Pure Hyperglyceridemia 03/05/2010 272.1 Pure Hyperglyceridemia 03/05/2010 272.1 Pure Hyperglyceridemia 03/05/2010 272.1 Pure Hyperglyceridemia 03/05/2010 ARIAN US PSYD ANN L 272.1 Pure Hyperglyceridemia 03/05/2010 ARIAN US PSYD ANN L 272.1 Pure Hyperglyceridemia 03/05/2010 LUCIANO WILLARD DO K 272.1 Pure Hyperglyceridemia 03/05/2010 JERMAINE FERRER APRN D 272.1 Pure Hyperglyceridemia 03/05/2010 ARIAN US PSYD ANN L 272.1 Pure Hyperglyceridemia 03/05/2010 ROXANNA OCONNOR CATALINA A 272.1 Pure Hyperglyceridemia 03/05/2010 LATONYA TAO APRNA S 272.1 Pure Hyperglyceridemia 03/05/2010 JERMAINE FERRER APRN D 272.1 Pure Hyperglyceridemia 03/05/2010 ARIAN US PSYD ANN L 272.1 Pure Hyperglyceridemia 03/05/2010 DASHA ANASTASIA HARLEEN T 272.1 Pure Hyperglyceridemia 03/05/2010 DASHA OCONNOR HARLEEN T 272.1 Pure Hyperglyceridemia 03/05/2010 ARIAN US PSYD ANN L 272.1 Pure Hyperglyceridemia 03/05/2010 ARIAN US PSYD ANN L 272.1 Pure Hyperglyceridemia 03/05/2010 LOUISE COBOS MD 272.1 Pure Hyperglyceridemia 03/05/2010 JERMAINE FERRER APRN D 272.1 Pure Hyperglyceridemia 03/05/2010 ARIAN US PSYD ANN L 272.1 Pure Hyperglyceridemia 03/05/2010 ARIAN US PSYD ANN L 272.1 Pure Hyperglyceridemia 03/05/2010 ARIAN US PSYD ANN L 272.1 Pure Hyperglyceridemia 03/05/2010 ARIAN US PSYD ANN L 272.1 Pure Hyperglyceridemia 03/05/2010 AISLINN OCONNOR BEVERLY S 272.1 Pure Hyperglyceridemia 03/05/2010 ARIAN US PSYD ANN L 272.1 Pure Hyperglyceridemia 03/05/2010 RUBA WILLARD DOA K 272.1 Pure Hyperglyceridemia 03/05/2010 LOUISE COBOS MD 272.1 Pure Hyperglyceridemia 03/05/2010 ARIAN US PSYD ANN L 272.1 Pure Hyperglyceridemia 03/05/2010 AISLINN OCONNOR, BEVERLY S 272.1 Pure Hyperglyceridemia 03/05/2010 ARIAN US PSYD ANN L 272.1 Pure Hyperglyceridemia 03/05/2010 ARIAN US PSYD ANN L 272.1 Pure Hyperglyceridemia 03/05/2010 AISLINN OCONNOR, BEVERLY S 272.1 Pure Hyperglyceridemia 03/05/2010 ARIAN US PSYD ANN L 272.1 Pure Hyperglyceridemia 03/05/2010 NELSONVANDANA OCONNOR JAVAD 272.1 Pure Hyperglyceridemia 03/05/2010 AISLINN OCONNOR, BEVERLY S 272.1 Pure Hyperglyceridemia 03/05/2010 NELSON OCONNOR JAVAD 272.1 Pure Hyperglyceridemia 03/05/2010 ARIAN US PSYD ANN L 272.1 Pure Hyperglyceridemia 03/05/2010 ARIAN US PSYD ANN L 272.1 Pure Hyperglyceridemia 03/05/2010 ARIAN US PSYD ANN L 272.1 Pure Hyperglyceridemia 03/05/2010 AISLINN OCONNOR BEVERLY S 272.1 Pure Hyperglyceridemia 03/05/2010 ROXANNA OCONNOR, CATALINA A 272.1 Pure Hyperglyceridemia 03/05/2010 NELSON OCONNOR JAVAD 272.1 Pure Hyperglyceridemia 03/05/2010 ARIAN US PSYD ANN L 272.1 Pure Hyperglyceridemia 03/05/2010 ARIAN US PSYD ANN L 272.1 Pure Hyperglyceridemia 03/05/2010 AISLINN OCONNOR, BEVERLY S 272.1 Pure Hyperglyceridemia 03/05/2010 ARIAN US PSYD ANN L 272.1 Pure Hyperglyceridemia 03/05/2010 ARIAN US PSYD ANN L 272.1 Pure Hyperglyceridemia 03/05/2010 ROXANNA APRN, CATALINA A 272.1 Pure Hyperglyceridemia 03/05/2010 ARIAN US PSYD ANN L 272.1 Pure Hyperglyceridemia 03/05/2010 ARIAN US PSYD 272.1 Pure Hyperglyceridemia 03/05/2010 ARIAN US PSYD L 272.1 Pure Hyperglyceridemia 07/01/2010 296.33 MO DEPRESSIVE RECURRENT SEVERE W/O PSYCHOTIC BEHAVIOR 07/01/2010 296.33 MO DEPRESSIVE RECURRENT SEVERE W/O PSYCHOTIC BEHAVIOR 07/01/2010 296.33 MO DEPRESSIVE RECURRENT SEVERE W/O PSYCHOTIC BEHAVIOR 07/01/2010 BEVERLY TAO APRN 296.33 MO DEPRESSIVE RECURRENT SEVERE W/O PSYCHOTIC BEHAVIOR 07/01/2010 ARIAN US PSYD L 296.33 MO DEPRESSIVE RECURRENT SEVERE W/O PSYCHOTIC BEHAVIOR 07/01/2010 ARIAN US PSYD L 296.33 MO DEPRESSIVE RECURRENT SEVERE W/O PSYCHOTIC BEHAVIOR 07/01/2010 296.33 MO DEPRESSIVE RECURRENT SEVERE W/O PSYCHOTIC BEHAVIOR 07/01/2010 ARIAN US PSYD L 296.33 MO DEPRESSIVE RECURRENT SEVERE W/O PSYCHOTIC BEHAVIOR 07/01/2010 296.33 MO DEPRESSIVE RECURRENT SEVERE W/O PSYCHOTIC BEHAVIOR 07/01/2010 296.33 MO DEPRESSIVE RECURRENT SEVERE W/O PSYCHOTIC BEHAVIOR 07/01/2010 296.33 MO DEPRESSIVE RECURRENT SEVERE W/O PSYCHOTIC BEHAVIOR 07/01/2010 296.33 MO DEPRESSIVE RECURRENT SEVERE W/O PSYCHOTIC BEHAVIOR 07/01/2010 296.33 MO DEPRESSIVE RECURRENT SEVERE W/O PSYCHOTIC BEHAVIOR 07/01/2010 296.33 MO DEPRESSIVE RECURRENT SEVERE W/O PSYCHOTIC BEHAVIOR 07/01/2010 296.33 MO DEPRESSIVE RECURRENT SEVERE W/O PSYCHOTIC BEHAVIOR 07/01/2010 296.33 MO DEPRESSIVE RECURRENT SEVERE W/O PSYCHOTIC BEHAVIOR 07/01/2010 296.33 MO DEPRESSIVE RECURRENT SEVERE W/O PSYCHOTIC BEHAVIOR 07/01/2010 296.33 MO DEPRESSIVE RECURRENT SEVERE W/O PSYCHOTIC BEHAVIOR 07/01/2010 296.33 MO DEPRESSIVE RECURRENT SEVERE W/O PSYCHOTIC BEHAVIOR 07/01/2010 296.33 MO DEPRESSIVE RECURRENT SEVERE W/O PSYCHOTIC BEHAVIOR 07/01/2010 296.33 MO DEPRESSIVE RECURRENT SEVERE W/O PSYCHOTIC BEHAVIOR 07/01/2010 296.33 MO DEPRESSIVE RECURRENT SEVERE W/O PSYCHOTIC BEHAVIOR 07/01/2010 ARIAN US PSYD L 296.33 MO DEPRESSIVE RECURRENT SEVERE W/O PSYCHOTIC BEHAVIOR 07/01/2010 ARIAN US PSYD L 296.33 MO DEPRESSIVE RECURRENT SEVERE W/O PSYCHOTIC BEHAVIOR 07/01/2010 SUDHEER MORRIS LUCIANO Mendoza 296.33 MO DEPRESSIVE RECURRENT SEVERE W/O PSYCHOTIC BEHAVIOR 07/01/2010 JERMAINE FERRER APRN 296.33 MO DEPRESSIVE RECURRENT SEVERE W/O PSYCHOTIC BEHAVIOR 07/01/2010 ARIAN US PSYD ANN L 296.33 MO DEPRESSIVE RECURRENT SEVERE W/O PSYCHOTIC BEHAVIOR 07/01/2010 CATALINA MCKNIGHT APRN A 296.33 MO DEPRESSIVE RECURRENT SEVERE W/O PSYCHOTIC BEHAVIOR 07/01/2010 BEVERLY TAO APRN S 296.33 MO DEPRESSIVE RECURRENT SEVERE W/O PSYCHOTIC BEHAVIOR 07/01/2010 JERMAINE FERRER APRN 296.33 MO DEPRESSIVE RECURRENT SEVERE W/O PSYCHOTIC BEHAVIOR 07/01/2010 ARIAN SU PSYD L 296.33 MO DEPRESSIVE RECURRENT SEVERE W/O PSYCHOTIC BEHAVIOR 07/01/2010 HARLEEN LOU APRN T 296.33 MO DEPRESSIVE RECURRENT SEVERE W/O PSYCHOTIC BEHAVIOR 07/01/2010 HARLEEN LOU APRN T 296.33 MO DEPRESSIVE RECURRENT SEVERE W/O PSYCHOTIC BEHAVIOR 07/01/2010 ARIAN US PSYD ANN L 296.33 MO DEPRESSIVE RECURRENT SEVERE W/O PSYCHOTIC BEHAVIOR 07/01/2010 ARIAN US PSYD ANN L 296.33 MO DEPRESSIVE RECURRENT SEVERE W/O PSYCHOTIC BEHAVIOR 07/01/2010 LOUISE COBOS MD 296.33 MO DEPRESSIVE RECURRENT SEVERE W/O PSYCHOTIC BEHAVIOR 07/01/2010 JERMAINE FERRER APRN 296.33 MO DEPRESSIVE RECURRENT SEVERE W/O PSYCHOTIC BEHAVIOR 07/01/2010 ARIAN US PSYD ANN L 296.33 MO DEPRESSIVE RECURRENT SEVERE W/O PSYCHOTIC BEHAVIOR 07/01/2010 ARIAN US PSYD ANN L 296.33 MO DEPRESSIVE RECURRENT SEVERE W/O PSYCHOTIC BEHAVIOR 07/01/2010 ARIAN US PSYD ANN L 296.33 MO DEPRESSIVE RECURRENT SEVERE W/O PSYCHOTIC BEHAVIOR 07/01/2010 ARIAN US PSYD ANN L 296.33 MO DEPRESSIVE RECURRENT SEVERE W/O PSYCHOTIC BEHAVIOR 07/01/2010 LATONYA TAO APRNA S 296.33 MO DEPRESSIVE RECURRENT SEVERE W/O PSYCHOTIC BEHAVIOR 07/01/2010 ARIAN SU PSYD ANN L 296.33 MO DEPRESSIVE RECURRENT SEVERE W/O PSYCHOTIC BEHAVIOR 07/01/2010 LUCIANO WILLARD DO 296.33 MO DEPRESSIVE RECURRENT SEVERE W/O PSYCHOTIC BEHAVIOR 07/01/2010 PAPITO GAYLE, LOUISE 296.33 MO DEPRESSIVE RECURRENT SEVERE W/O PSYCHOTIC BEHAVIOR 07/01/2010 ARIAN US PSYD ANN L 296.33 MO DEPRESSIVE RECURRENT SEVERE W/O PSYCHOTIC BEHAVIOR 07/01/2010 AISLINN RUIZN, BEVERLY S 296.33 MO DEPRESSIVE RECURRENT SEVERE W/O PSYCHOTIC BEHAVIOR 07/01/2010 ARIAN US PSYD ANN L 296.33 MO DEPRESSIVE RECURRENT SEVERE W/O PSYCHOTIC BEHAVIOR 07/01/2010 ARIAN US PSYD ANN L 296.33 MO DEPRESSIVE RECURRENT SEVERE W/O PSYCHOTIC BEHAVIOR 07/01/2010 AISLINN OCONNOR BEVERLY S 296.33 MO DEPRESSIVE RECURRENT SEVERE W/O PSYCHOTIC BEHAVIOR 07/01/2010 ARIAN US PSYD ANN L 296.33 MO DEPRESSIVE RECURRENT SEVERE W/O PSYCHOTIC BEHAVIOR 07/01/2010 NELSON OCONNOR JAVAD 296.33 MO DEPRESSIVE RECURRENT SEVERE W/O PSYCHOTIC BEHAVIOR 07/01/2010 AISLINN OCONNOR BEVERLY S 296.33 MO DEPRESSIVE RECURRENT SEVERE W/O PSYCHOTIC BEHAVIOR 07/01/2010 NELSON OCONNOR JAVAD 296.33 MO DEPRESSIVE RECURRENT SEVERE W/O PSYCHOTIC BEHAVIOR 07/01/2010 ARIAN US PSYD ANN L 296.33 MO DEPRESSIVE RECURRENT SEVERE W/O PSYCHOTIC BEHAVIOR 07/01/2010 ARIAN US PSYD ANN L 296.33 MO DEPRESSIVE RECURRENT SEVERE W/O PSYCHOTIC BEHAVIOR 07/01/2010 ARIAN US PSYD ANN L 296.33 MO DEPRESSIVE RECURRENT SEVERE W/O PSYCHOTIC BEHAVIOR 07/01/2010 AISLINN OCONNOR BEVERLY S 296.33 MO DEPRESSIVE RECURRENT SEVERE W/O PSYCHOTIC BEHAVIOR 07/01/2010 CATALINA MCKNIGHT APRN A 296.33 MO DEPRESSIVE RECURRENT SEVERE W/O PSYCHOTIC BEHAVIOR 07/01/2010 NELSON OCONNOR JAVAD 296.33 MO DEPRESSIVE RECURRENT SEVERE W/O PSYCHOTIC BEHAVIOR 07/01/2010 ARIAN US PSYD ANN L 296.33 MO DEPRESSIVE RECURRENT SEVERE W/O PSYCHOTIC BEHAVIOR 07/01/2010 ARIAN US PSYD ANN L 296.33 MO DEPRESSIVE RECURRENT SEVERE W/O PSYCHOTIC BEHAVIOR 07/01/2010 BEVERLY TAO APRN S 296.33 MO DEPRESSIVE RECURRENT SEVERE W/O PSYCHOTIC BEHAVIOR 07/01/2010 ARIAN US PSYD 296.33 MO DEPRESSIVE RECURRENT SEVERE W/O PSYCHOTIC BEHAVIOR 07/01/2010 ARIAN US PSYD 296.33 MO DEPRESSIVE RECURRENT SEVERE W/O PSYCHOTIC BEHAVIOR 07/01/2010 ROXANNA ANASTASIA CATALINA A 296.33 MO DEPRESSIVE RECURRENT SEVERE W/O PSYCHOTIC BEHAVIOR 07/01/2010 ARIAN US PSYD L 296.33 MO DEPRESSIVE RECURRENT SEVERE W/O PSYCHOTIC BEHAVIOR 07/01/2010 ARIAN US PSYD 296.33 MO DEPRESSIVE RECURRENT SEVERE W/O PSYCHOTIC BEHAVIOR 07/01/2010 ARIAN US PSYD 296.33 MO DEPRESSIVE RECURRENT SEVERE W/O PSYCHOTIC BEHAVIOR 07/09/2010 Ot 250.00 DIAB RIMMA WO COMPL, TYPE II OR UNSPEC TY 07/09/2010 Ot V58.67 LONG-TERM ( 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 OF INSULIN 10/16/2010 296.89 MO BIPOLAR II 10/16/2010 296.89 MO BIPOLAR II 10/16/2010 296.89 MO BIPOLAR II 10/16/2010 BEVERLY TAO APRN S 296.89 MO BIPOLAR II 10/16/2010 ARIAN US PSYD 296.89 MO BIPOLAR II 10/16/2010 ARIAN US PSYD 296.89 MO BIPOLAR II 10/16/2010 296.89 MO BIPOLAR II 10/16/2010 ARIAN US PSYD 296.89 MO BIPOLAR II 10/16/2010 296.89 MO BIPOLAR II 10/16/2010 296.89 MO BIPOLAR II 10/16/2010 296.89 MO BIPOLAR II 10/16/2010 296.89 MO BIPOLAR II 10/16/2010 296.89 MO BIPOLAR II 10/16/2010 296.89 MO BIPOLAR II 10/16/2010 296.89 MO BIPOLAR II 10/16/2010 296.89 MO BIPOLAR II 10/16/2010 296.89 MO BIPOLAR II 10/16/2010 296.89 MO BIPOLAR II 10/16/2010 296.89 MO BIPOLAR II 10/16/2010 296.89 MO BIPOLAR II 10/16/2010 296.89 MO BIPOLAR II 10/16/2010 296.89 MO BIPOLAR II 10/16/2010 ARIAN US PSYD L 296.89 MO BIPOLAR II 10/16/2010 ARIAN US PSYD ANN L 296.89 MO BIPOLAR II 10/16/2010 LUCIANO WILLARD DO 296.89 MO BIPOLAR II 10/16/2010 JERMAINE FERRER APRN 296.89 MO BIPOLAR II 10/16/2010 ARIAN US PSYD L 296.89 MO BIPOLAR II 10/16/2010 CATALINA MCKNIGHT APRN A 296.89 MO BIPOLAR II 10/16/2010 LATONYA TAO APRNA S 296.89 MO BIPOLAR II 10/16/2010 JERMAINE FERRER APRN 296.89 MO BIPOLAR II 10/16/2010 ARIAN US PSYD L 296.89 MO BIPOLAR II 10/16/2010 DASHA OCONNOR HARLEEN T 296.89 MO BIPOLAR II 10/16/2010 HARLEEN LOU APRN T 296.89 MO BIPOLAR II 10/16/2010 ARIAN US PSYD L 296.89 MO BIPOLAR II 10/16/2010 ARIAN US PSYD ANN L 296.89 MO BIPOLAR II 10/16/2010 LOUISE COBOS MD 296.89 MO BIPOLAR II 10/16/2010 JERMAINE FERRER APRN 296.89 MO BIPOLAR II 10/16/2010 ARIAN US PSYD ANN L 296.89 MO BIPOLAR II 10/16/2010 ARIAN US PSYD L 296.89 MO BIPOLAR II 10/16/2010 ARIAN US PSYD L 296.89 MO BIPOLAR II 10/16/2010 ARIAN US PSYD ANN L 296.89 MO BIPOLAR II 10/16/2010 LATONYA TAO APRNA S 296.89 MO BIPOLAR II 10/16/2010 ARIAN US PSYD ANN L 296.89 MO BIPOLAR II 10/16/2010 LUCIANO WILLARD DO 296.89 MO BIPOLAR II 10/16/2010 LOUISE COBOS MD 296.89 MO BIPOLAR II 10/16/2010 ARIAN US PSYD ANN L 296.89 MO BIPOLAR II 10/16/2010 CLAUDE TAO APRNNDA S 296.89 MO BIPOLAR II 10/16/2010 ARIAN US PSYD ANN L 296.89 MO BIPOLAR II 10/16/2010 ARIAN US PSYD ANN L 296.89 MO BIPOLAR II 10/16/2010 CLAUDE TAO APRNNDA S 296.89 MO BIPOLAR II 10/16/2010 ARIAN US PSYD ANN L 296.89 MO BIPOLAR II 10/16/2010 NELSON TAXI PROPRIETOR, JAVAD 296.89 MO BIPOLAR II 10/16/2010 CLAUDE TAO APRNNDA S 296.89 MO BIPOLAR II 10/16/2010 NELSON OCONNOR JAVAD 296.89 MO BIPOLAR II 10/16/2010 ARIAN US PSYD ANN L 296.89 MO BIPOLAR II 10/16/2010 ARIAN US PSYD ANN L 296.89 MO BIPOLAR II 10/16/2010 ARIAN US PSYD ANN L 296.89 MO BIPOLAR II 10/16/2010 LATONYA TAO APRNA S 296.89 MO BIPOLAR II 10/16/2010 ROXANNA OCONNOR CATALINA A 296.89 MO BIPOLAR II 10/16/2010 NELSON OCONNOR, JAVAD 296.89 MO BIPOLAR II 10/16/2010 ARIAN US PSYD ANN L 296.89 MO BIPOLAR II 10/16/2010 ARIAN US PSYD ANN L 296.89 MO BIPOLAR II 10/16/2010 LATONYA TAO APRNA S 296.89 MO BIPOLAR II 10/16/2010 ARIAN US PSYD ANN L 296.89 MO BIPOLAR II 10/16/2010 ARIAN US PSYD ANN L 296.89 MO BIPOLAR II 10/16/2010 ROAXNNA OCONNOR CATALINA A 296.89 MO BIPOLAR II 10/16/2010 ARIAN US PSYD ANN L 296.89 MO BIPOLAR II 10/16/2010 ARIAN US PSYD ANN L 296.89 MO BIPOLAR II 10/16/2010 ARIAN US PSYD ANN L 296.89 MO BIPOLAR II 01/22/2011 296.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 I MIXED MODERATE 01/22/2011 296.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 I MIXED MODERATE 01/22/2011 296.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 I MIXED MODERATE 01/22/2011 BEVERLY TAO APRN S 296.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 I MIXED MODERATE 01/22/2011 ARIAN US PSYD 296.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 I MIXED MODERATE 01/22/2011 ARIAN US PSYD 296.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 I MIXED MODERATE 01/22/2011 296.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 I MIXED MODERATE 01/22/2011 ARIAN US PSYD L 296.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 I MIXED MODERATE 01/22/2011 296.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 I MIXED MODERATE 01/22/2011 296.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 I MIXED MODERATE 01/22/2011 296.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 I MIXED MODERATE 01/22/2011 296.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 I MIXED MODERATE 01/22/2011 296.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 I MIXED MODERATE 01/22/2011 296.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 I MIXED MODERATE 01/22/2011 296.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 I MIXED MODERATE 01/22/2011 296.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 I MIXED MODERATE 01/22/2011 296.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 I MIXED MODERATE 01/22/2011 296.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 I MIXED MODERATE 01/22/2011 296.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 I MIXED MODERATE 01/22/2011 296.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 I MIXED MODERATE 01/22/2011 296.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 I MIXED MODERATE 01/22/2011 296.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 I MIXED MODERATE 01/22/2011 ARIAN US PSYD L 296.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 I MIXED MODERATE 01/22/2011 ARIAN US PSYD 296.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 I MIXED MODERATE 01/22/2011 LUCIANO WILLARD DO 296.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 I MIXED MODERATE 01/22/2011 JERMAINE FERRER APRN D 296.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 I MIXED MODERATE 01/22/2011 ARIAN US PSYD 296.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 I MIXED MODERATE 01/22/2011 CATALINA MCKNIGHT APRN 296.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 I MIXED MODERATE 01/22/2011 BEVERLY TAO APRN S 296.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 I MIXED MODERATE 01/22/2011 JERMAINE FERRER APRN 296.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 I MIXED MODERATE 01/22/2011 ARIAN US PSYD L 296.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 I MIXED MODERATE 01/22/2011 HARLEEN LOU APRN 296.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 I MIXED MODERATE 01/22/2011 HARLEEN LOU APRN 296.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 I MIXED MODERATE 01/22/2011 ARIAN US PSYD ANN L 296.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 I MIXED MODERATE 01/22/2011 ARIAN US PSYD ANN L 296.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 I MIXED MODERATE 01/22/2011 LOUISE COBOS MD 296.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 I MIXED MODERATE 01/22/2011 JERMAINE FERRER APRN 296.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 I MIXED MODERATE 01/22/2011 ARIAN US PSYD ANN L 296.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 I MIXED MODERATE 01/22/2011 ARIAN US PSYD ANN L 296.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 I MIXED MODERATE 01/22/2011 ARIAN US PSYD ANN L 296.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 I MIXED MODERATE 01/22/2011 ARIAN US PSYD ANN L 296.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 I MIXED MODERATE 01/22/2011 AISLINN OCONNOR, BEVERLY S 296.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 I MIXED MODERATE 01/22/2011 ARIAN US PSYD ANN L 296.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 I MIXED MODERATE 01/22/2011 LUCIANO WILLARD DO 296.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 I MIXED MODERATE 01/22/2011 LOUISE COBOS MD 296.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 I MIXED MODERATE 01/22/2011 ARIAN US PSYD ANN L 296.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 I MIXED MODERATE 01/22/2011 AISLINN OCONNOR, BEVERLY S 296.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 I MIXED MODERATE 01/22/2011 ARIAN US PSYD ANN L 296.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 I MIXED MODERATE 01/22/2011 ARIAN US PSYD ANN L 296.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 I MIXED MODERATE 01/22/2011 AISLINN OCONNOR, BEVERLY S 296.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 I MIXED MODERATE 01/22/2011 ARIAN US PSYD ANN L 296.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 I MIXED MODERATE 01/22/2011 NELSON TAXI PROPRIETOR, JAVAD 296.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 I MIXED MODERATE 01/22/2011 AISLINN OCONNOR, BEVERLY S 296.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 I MIXED MODERATE 01/22/2011 NELSON TAXI PROPRIETOR, JAVAD 296.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 I MIXED MODERATE 01/22/2011 ARIAN US PSYD ANN L 296.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 I MIXED MODERATE 01/22/2011 ARIAN US PSYD ANN L 296.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 I MIXED MODERATE 01/22/2011 ARIAN US PSYD ANN L 296.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 I MIXED MODERATE 01/22/2011 AISLINNCHICHI OCONNOR, BEVERLY S 296.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 I MIXED MODERATE 01/22/2011 ROXANNA TAXI PROPRIETOR, CATALINA A 296.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 I MIXED MODERATE 01/22/2011 NELSON OCONNOR JAVAD 296.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 I MIXED MODERATE 01/22/2011 ARIAN US PSYD ANN L 296.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 I MIXED MODERATE 01/22/2011 ARIAN US PSYD ANN L 296.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 I MIXED MODERATE 01/22/2011 CLAUDE TAO APRNNDA S 296.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 I MIXED MODERATE 01/22/2011 ARIAN US PSYD ANN L 296.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 I MIXED MODERATE 01/22/2011 ARIAN US PSYD ANN L 296.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 I MIXED MODERATE 01/22/2011 ROXANNA APRN, CATALINA A 296.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 I MIXED MODERATE 01/22/2011 ARIAN US PSYD ANN L 296.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 I MIXED MODERATE 01/22/2011 ARIAN US PSYD ANN L 296.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 I MIXED MODERATE 01/22/2011 ARIAN US PSYD ANN L 296.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 I MIXED MODERATE 02/02/2011 354.0 Carpal Tunnel Syndrome 02/02/2011 535.00 Acute Gastritis (without Hemorrhage) 02/02/2011 354.0 Carpal Tunnel Syndrome 02/02/2011 535.00 Acute Gastritis (without Hemorrhage) 02/02/2011 354.0 Carpal Tunnel Syndrome 02/02/2011 535.00 Acute Gastritis (without Hemorrhage) 02/02/2011 LATONYA TAO APRNA S 354.0 Carpal Tunnel Syndrome 02/02/2011 CLAUDE TAO APRNNDA S 535.00 Acute Gastritis (without Hemorrhage) 02/02/2011 AIRAN US PSYD ANN L 354.0 Carpal Tunnel Syndrome 02/02/2011 ARIAN US PSYD ANN L 535.00 Acute Gastritis (without Hemorrhage) 02/02/2011 ARIAN US PSYD L 354.0 Carpal Tunnel Syndrome 02/02/2011 ARIAN US PSYD ANN L 535.00 Acute Gastritis (without Hemorrhage) 02/02/2011 354.0 Carpal Tunnel Syndrome 02/02/2011 535.00 Acute Gastritis (without Hemorrhage) 02/02/2011 ARIAN US PSYD L 354.0 Carpal Tunnel Syndrome 02/02/2011 ARIAN US PSYD ANN L 535.00 Acute Gastritis (without Hemorrhage) 02/02/2011 354.0 Carpal Tunnel Syndrome 02/02/2011 535.00 Acute Gastritis (without Hemorrhage) 02/02/2011 354.0 Carpal Tunnel Syndrome 02/02/2011 535.00 Acute Gastritis (without Hemorrhage) 02/02/2011 354.0 Carpal Tunnel Syndrome 02/02/2011 535.00 Acute Gastritis (without Hemorrhage) 02/02/2011 354.0 Carpal Tunnel Syndrome 02/02/2011 535.00 Acute Gastritis (without Hemorrhage) 02/02/2011 354.0 Carpal Tunnel Syndrome 02/02/2011 535.00 Acute Gastritis (without Hemorrhage) 02/02/2011 354.0 Carpal Tunnel Syndrome 02/02/2011 535.00 Acute Gastritis (without Hemorrhage) 02/02/2011 354.0 Carpal Tunnel Syndrome 02/02/2011 535.00 Acute Gastritis (without Hemorrhage) 02/02/2011 354.0 Carpal Tunnel Syndrome 02/02/2011 535.00 Acute Gastritis (without Hemorrhage) 02/02/2011 354.0 Carpal Tunnel Syndrome 02/02/2011 535.00 Acute Gastritis (without Hemorrhage) 02/02/2011 354.0 Carpal Tunnel Syndrome 02/02/2011 535.00 Acute Gastritis (without Hemorrhage) 02/02/2011 354.0 Carpal Tunnel Syndrome 02/02/2011 535.00 Acute Gastritis (without Hemorrhage) 02/02/2011 354.0 Carpal Tunnel Syndrome 02/02/2011 535.00 Acute Gastritis (without Hemorrhage) 02/02/2011 354.0 Carpal Tunnel Syndrome 02/02/2011 535.00 Acute Gastritis (without Hemorrhage) 02/02/2011 354.0 Carpal Tunnel Syndrome 02/02/2011 535.00 Acute Gastritis (without Hemorrhage) 02/02/2011 ARIAN US PSYD L 354.0 Carpal Tunnel Syndrome 02/02/2011 ARIAN SU PSYD L 535.00 Acute Gastritis (without Hemorrhage) 02/02/2011 ARIAN US PSYD L 354.0 Carpal Tunnel Syndrome 02/02/2011 ARIAN US PSYD L 535.00 Acute Gastritis (without Hemorrhage) 02/02/2011 WILLARD DO, LUCIANO K 354.0 Carpal Tunnel Syndrome 02/02/2011 WILLARD DO, LUCIANO K 535.00 Acute Gastritis (without Hemorrhage) 02/02/2011 JERMIANE FERRER APRN D 354.0 Carpal Tunnel Syndrome 02/02/2011 JERMAINE FERRER APRN D 535.00 Acute Gastritis (without Hemorrhage) 02/02/2011 ARIAN US PSYD L 354.0 Carpal Tunnel Syndrome 02/02/2011 ARIAN US PSYD ANN L 535.00 Acute Gastritis (without Hemorrhage) 02/02/2011 ROXANNA OCONNOR, CATALINA A 354.0 Carpal Tunnel Syndrome 02/02/2011 ROXANNA OCONNOR, CATALINA A 535.00 Acute Gastritis (without Hemorrhage) 02/02/2011 AISLINN OCONNOR, BEVERLY S 354.0 Carpal Tunnel Syndrome 02/02/2011 AISLINN TAXI PROPRIETOR, BEVERLY S 535.00 Acute Gastritis (without Hemorrhage) 02/02/2011 JERMAINE FERRER APRN D 354.0 Carpal Tunnel Syndrome 02/02/2011 JERMAINE FERRER APRN D 535.00 Acute Gastritis (without Hemorrhage) 02/02/2011 ARIAN US PSYD L 354.0 Carpal Tunnel Syndrome 02/02/2011 ARIAN US PSYD ANN L 535.00 Acute Gastritis (without Hemorrhage) 02/02/2011 DASHA TAXI PROPRIETOR, HARLEEN T 354.0 Carpal Tunnel Syndrome 02/02/2011 DASHA TAXI PROPRIETOR, HARLEEN T 535.00 Acute Gastritis (without Hemorrhage) 02/02/2011 DASHA TAXI PROPRIETOR, HARLEEN T 354.0 Carpal Tunnel Syndrome 02/02/2011 DASHA TAXI PROPRIETOR, HARLEEN T 535.00 Acute Gastritis (without Hemorrhage) 02/02/2011 ARIAN US PSYD ANN L 354.0 Carpal Tunnel Syndrome 02/02/2011 ARIAN US PSYD ANN L 535.00 Acute Gastritis (without Hemorrhage) 02/02/2011 ARIAN US PSYD ANN L 354.0 Carpal Tunnel Syndrome 02/02/2011 ARIAN US PSYD ANN L 535.00 Acute Gastritis (without Hemorrhage) 02/02/2011 LOUISE COBOS MD 354.0 Carpal Tunnel Syndrome 02/02/2011 LOUISE COBOS MD 535.00 Acute Gastritis (without Hemorrhage) 02/02/2011 JERMAINE FERRER APRN D 354.0 Carpal Tunnel Syndrome 02/02/2011 JERMAINE FERRER APRN D 535.00 Acute Gastritis (without Hemorrhage) 02/02/2011 ARIAN US PSYD ANN L 354.0 Carpal Tunnel Syndrome 02/02/2011 ARIAN US PSYD ANN L 535.00 Acute Gastritis (without Hemorrhage) 02/02/2011 ARIAN US PSYD ANN L 354.0 Carpal Tunnel Syndrome 02/02/2011 ARIAN US PSYD ANN L 535.00 Acute Gastritis (without Hemorrhage) 02/02/2011 ARIAN US PSYD ANN L 354.0 Carpal Tunnel Syndrome 02/02/2011 ARIAN US PSYD ANN L 535.00 Acute Gastritis (without Hemorrhage) 02/02/2011 ARIAN US PSYD ANN L 354.0 Carpal Tunnel Syndrome 02/02/2011 ARIAN US PSYD ANN L 535.00 Acute Gastritis (without Hemorrhage) 02/02/2011 AILSINN TAXI PROPRIETOR, BEVERLY S 354.0 Carpal Tunnel Syndrome 02/02/2011 AISLINN TAXI PROPRIETOR, BEVERLY S 535.00 Acute Gastritis (without Hemorrhage) 02/02/2011 ARIAN US PSYD ANN L 354.0 Carpal Tunnel Syndrome 02/02/2011 ARIAN US PSYD ANN L 535.00 Acute Gastritis (without Hemorrhage) 02/02/2011 WILLARD DORUBAA K 354.0 Carpal Tunnel Syndrome 02/02/2011 WILLARD DORUBAA K 535.00 Acute Gastritis (without Hemorrhage) 02/02/2011 LOUISE COBOS MD 354.0 Carpal Tunnel Syndrome 02/02/2011 LOUISE COBOS MD 535.00 Acute Gastritis (without Hemorrhage) 02/02/2011 ARIAN US PSYD ANN L 354.0 Carpal Tunnel Syndrome 02/02/2011 ARIAN US PSYD ANN L 535.00 Acute Gastritis (without Hemorrhage) 02/02/2011 AISLINN TAXI PROPRIETOR, BEVERLY S 354.0 Carpal Tunnel Syndrome 02/02/2011 AISLINN TAXI PROPRIETOR, BEVERLY S 535.00 Acute Gastritis (without Hemorrhage) 02/02/2011 ARIAN US PSYD ANN L 354.0 Carpal Tunnel Syndrome 02/02/2011 ARIAN US PSYD ANN L 535.00 Acute Gastritis (without Hemorrhage) 02/02/2011 ARIAN US PSYD ANN L 354.0 Carpal Tunnel Syndrome 02/02/2011 ARIAN US PSYD ANN L 535.00 Acute Gastritis (without Hemorrhage) 02/02/2011 AISLINN TAXI PROPRIETOR, BEVERLY S 354.0 Carpal Tunnel Syndrome 02/02/2011 AISLINN TAXI PROPRIETOR, BEVERLY S 535.00 Acute Gastritis (without Hemorrhage) 02/02/2011 ARIAN US PSYD ANN L 354.0 Carpal Tunnel Syndrome 02/02/2011 ARIAN US PSYD ANN L 535.00 Acute Gastritis (without Hemorrhage) 02/02/2011 NELSON TAXI PROPRIETOR, JAVAD 354.0 Carpal Tunnel Syndrome 02/02/2011 NELSON TAXI PROPRIETOR, JAVAD 535.00 Acute Gastritis (without Hemorrhage) 02/02/2011 AISLINN TAXI PROPRIETOR, BEVERLY S 354.0 Carpal Tunnel Syndrome 02/02/2011 AISLINN TAXI PROPRIETOR, BEVERLY S 535.00 Acute Gastritis (without Hemorrhage) 02/02/2011 NELSON TAXI PROPRIETOR, JAVAD 354.0 Carpal Tunnel Syndrome 02/02/2011 NELSON TAXI PROPRIETOR, JAVAD 535.00 Acute Gastritis (without Hemorrhage) 02/02/2011 ARIAN US PSYD ANN L 354.0 Carpal Tunnel Syndrome 02/02/2011 ARIAN US PSYD ANN L 535.00 Acute Gastritis (without Hemorrhage) 02/02/2011 ARIAN US PSYD ANN L 354.0 Carpal Tunnel Syndrome 02/02/2011 ARIAN US PSYD ANN L 535.00 Acute Gastritis (without Hemorrhage) 02/02/2011 ARIAN US PSYD ANN L 354.0 Carpal Tunnel Syndrome 02/02/2011 ARIAN US PSYD ANN L 535.00 Acute Gastritis (without Hemorrhage) 02/02/2011 AISLINN TAXI PROPRIETOR, BEVERLY S 354.0 Carpal Tunnel Syndrome 02/02/2011 AISLINN TAXI PROPRIETOR, BEVERLY S 535.00 Acute Gastritis (without Hemorrhage) 02/02/2011 ROXANNA TAXI PROPRIETOR, CATALINA A 354.0 Carpal Tunnel Syndrome 02/02/2011 ROXANNA TAXI PROPRIETOR, CTAALINA A 535.00 Acute Gastritis (without Hemorrhage) 02/02/2011 NELSON TAXI PROPRIETOR, JAVAD 354.0 Carpal Tunnel Syndrome 02/02/2011 NELSON TAXI PROPRIETOR, JAVAD 535.00 Acute Gastritis (without Hemorrhage) 02/02/2011 ARIAN US PSYD ANN L 354.0 Carpal Tunnel Syndrome 02/02/2011 ARIAN US PSYD ANN L 535.00 Acute Gastritis (without Hemorrhage) 02/02/2011 ARIAN US PSYD ANN L 354.0 Carpal Tunnel Syndrome 02/02/2011 ARIAN US PSYD ANN L 535.00 Acute Gastritis (without Hemorrhage) 02/02/2011 AISLINN OCONNOR BEVERLY S 354.0 Carpal Tunnel Syndrome 02/02/2011 AISLINN OCONNOR, BEVERLY S 535.00 Acute Gastritis (without Hemorrhage) 02/02/2011 ARIAN US PSYD ANN L 354.0 Carpal Tunnel Syndrome 02/02/2011 ARIAN US PSYD ANN L 535.00 Acute Gastritis (without Hemorrhage) 02/02/2011 ARIAN US PSYD ANN L 354.0 Carpal Tunnel Syndrome 02/02/2011 ARIAN US PSYD ANN L 535.00 Acute Gastritis (without Hemorrhage) 02/02/2011 ROXANNA TAXI PROPRIETOR, CATALINA A 354.0 Carpal Tunnel Syndrome 02/02/2011 ROXANNA TAXI PROPRIETOR, CATALINA A 535.00 Acute Gastritis (without Hemorrhage) 02/02/2011 ARIAN US PSYD ANN L 354.0 Carpal Tunnel Syndrome 02/02/2011 ARIAN US PSYD ANN L 535.00 Acute Gastritis (without Hemorrhage) 02/02/2011 ARIAN US PSYD ANN L 354.0 Carpal Tunnel Syndrome 02/02/2011 ARIAN US PSYD L 535.00 Acute Gastritis (without Hemorrhage) 02/02/2011 ARIAN US PSYD L 354.0 Carpal Tunnel Syndrome 02/02/2011 ARIAN US PSYD L 535.00 Acute Gastritis (without Hemorrhage) 02/12/2011 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 02/12/2011 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 02/12/2011 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 02/12/2011 BEVERLY TAO APRN 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 02/12/2011 ARIAN US PSYD L 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 02/12/2011 ARIAN US PSYD L 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 02/12/2011 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 02/12/2011 ARIAN US PSYD L 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 02/12/2011 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 02/12/2011 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 02/12/2011 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 02/12/2011 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 02/12/2011 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 02/12/2011 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 02/12/2011 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 02/12/2011 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 02/12/2011 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 02/12/2011 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 02/12/2011 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 02/12/2011 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 02/12/2011 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 02/12/2011 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 02/12/2011 ARIAN US PSYD L 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 02/12/2011 ARIAN US PSYD L 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 02/12/2011 LUCIANO WILLARD DO 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 02/12/2011 JERMAINE FERRER APRN 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 02/12/2011 ARIAN US PSYD ANN L 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 02/12/2011 ARIAN US PSYD ANN L 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 02/12/2011 ARIAN US PSYD ANN L 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 02/12/2011 BEVERLY TAO APRN S 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 02/12/2011 ARIAN US PSYD ANN L 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 02/12/2011 LUCIANO WILLARD DO 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 02/12/2011 LOUISE COBOS MD 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 02/12/2011 ARIAN US PSYD L 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 02/12/2011 LATONYA TAO APRNA S 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 02/12/2011 ARIAN US PSYD L 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 02/12/2011 ARIAN US PSYD ANN L 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 02/12/2011 LATONYA TAO APRNA S 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 02/12/2011 ARIAN US PSYD ANN L 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 02/12/2011 NELSON TAXI PROPRIETOR, JAVAD 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 02/12/2011 CLAUDE TAO APRNNDA S 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 02/12/2011 JAVAD DAMON APRN 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 02/12/2011 ARIAN US PSYD ANN L 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 02/12/2011 ARIAN US PSYD ANN L 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 02/12/2011 ARIAN US PSYD ANN L 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 02/12/2011 CLAUDE TAO APRNNDA S 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 02/12/2011 ROXANNA APRN, CATALINA A 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 02/12/2011 MADAI DAMON APRNETTE 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 02/12/2011 ARIAN US PSYD ANN L 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 02/12/2011 ARIAN US PSYD ANN L 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 02/12/2011 BEVERLY TAO APRN S 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 02/12/2011 ARIAN US PSYD ANN L 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 02/12/2011 ARIAN US PSYD ANN L 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 02/12/2011 ROXANNA RUIZN, CATALINA A 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 02/12/2011 ARIAN US PSYD ANN L 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 02/12/2011 ARIAN US PSYD ANN L 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 02/12/2011 ARIAN US PSYD ANN L 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 02/17/2011 V04.81 FLU DX (3 YRS AND ABOVE, IM) 02/17/2011 V04.81 FLU DX (3 YRS AND ABOVE, IM) 02/17/2011 V04.81 FLU DX (3 YRS AND ABOVE, IM) 02/17/2011 BEVERLY TAO APRN S V04.81 FLU DX (3 YRS AND ABOVE, IM) 02/17/2011 ARIAN US PSYD ANN L V04.81 FLU DX (3 YRS AND ABOVE, IM) 02/17/2011 ARIAN US PSYD ANN L V04.81 FLU DX (3 YRS AND ABOVE, IM) 02/17/2011 V04.81 FLU DX (3 YRS AND ABOVE, IM) 02/17/2011 ARIAN US PSYD L V04.81 FLU DX (3 YRS AND ABOVE, IM) 02/17/2011 V04.81 FLU DX (3 YRS AND ABOVE, IM) 02/17/2011 V04.81 FLU DX (3 YRS AND ABOVE, IM) 02/17/2011 V04.81 FLU DX (3 YRS AND ABOVE, IM) 02/17/2011 V04.81 FLU DX (3 YRS AND ABOVE, IM) 02/17/2011 V04.81 FLU DX (3 YRS AND ABOVE, IM) 02/17/2011 V04.81 FLU DX (3 YRS AND ABOVE, IM) 02/17/2011 V04.81 FLU DX (3 YRS AND ABOVE, IM) 02/17/2011 V04.81 FLU DX (3 YRS AND ABOVE, IM) 02/17/2011 V04.81 FLU DX (3 YRS AND ABOVE, IM) 02/17/2011 V04.81 FLU DX (3 YRS AND ABOVE, IM) 02/17/2011 V04.81 FLU DX (3 YRS AND ABOVE, IM) 02/17/2011 V04.81 FLU DX (3 YRS AND ABOVE, IM) 02/17/2011 V04.81 FLU DX (3 YRS AND ABOVE, IM) 02/17/2011 V04.81 FLU DX (3 YRS AND ABOVE, IM) 02/17/2011 ARIAN US PSYD L V04.81 FLU DX (3 YRS AND ABOVE, IM) 02/17/2011 ARIAN US PSYD L V04.81 FLU DX (3 YRS AND ABOVE, IM) 02/17/2011 LUCIANO WILLARD DO V04.81 FLU DX (3 YRS AND ABOVE, IM) 02/17/2011 JERMAINE FERRER APRN V04.81 FLU DX (3 YRS AND ABOVE, IM) 02/17/2011 ARIAN US PSYD L V04.81 FLU DX (3 YRS AND ABOVE, IM) 02/17/2011 CATALINA MCKNIGHT APRN V04.81 FLU DX (3 YRS AND ABOVE, IM) 02/17/2011 BEVERLY TAO APRN S V04.81 FLU DX (3 YRS AND ABOVE, IM) 02/17/2011 JERMAINE FERRER APRN D V04.81 FLU DX (3 YRS AND ABOVE, IM) 02/17/2011 ARIAN US PSYD ANN L V04.81 FLU DX (3 YRS AND ABOVE, IM) 02/17/2011 HARLEEN LOU APRN T V04.81 FLU DX (3 YRS AND ABOVE, IM) 02/17/2011 HARLEEN LOU APRN T V04.81 FLU DX (3 YRS AND ABOVE, IM) 02/17/2011 ARIAN US PSYD ANN L V04.81 FLU DX (3 YRS AND ABOVE, IM) 02/17/2011 ARIAN US PSYD ANN L V04.81 FLU DX (3 YRS AND ABOVE, IM) 02/17/2011 LOUISE COBOS MD V04.81 FLU DX (3 YRS AND ABOVE, IM) 02/17/2011 JERMAINE FERRER APRN D V04.81 FLU DX (3 YRS AND ABOVE, IM) 02/17/2011 ARIAN US PSYD ANN L V04.81 FLU DX (3 YRS AND ABOVE, IM) 02/17/2011 ARIAN US PSYD ANN L V04.81 FLU DX (3 YRS AND ABOVE, IM) 02/17/2011 ARIAN US PSYD ANN L V04.81 FLU DX (3 YRS AND ABOVE, IM) 02/17/2011 ARIAN US PSYD ANN L V04.81 FLU DX (3 YRS AND ABOVE, IM) 02/17/2011 BEVERLY TAO APRN S V04.81 FLU DX (3 YRS AND ABOVE, IM) 02/17/2011 ARIAN US PSYD ANN L V04.81 FLU DX (3 YRS AND ABOVE, IM) 02/17/2011 LUCIANO WILLARD DO V04.81 FLU DX (3 YRS AND ABOVE, IM) 02/17/2011 LOUISE COBOS MD V04.81 FLU DX (3 YRS AND ABOVE, IM) 02/17/2011 ARIAN US PSYD ANN L V04.81 FLU DX (3 YRS AND ABOVE, IM) 02/17/2011 LATONYA TAO APRNA S V04.81 FLU DX (3 YRS AND ABOVE, IM) 02/17/2011 ARIAN US PSYD ANN L V04.81 FLU DX (3 YRS AND ABOVE, IM) 02/17/2011 ARIAN US PSYD ANN L V04.81 FLU DX (3 YRS AND ABOVE, IM) 02/17/2011 LATONYA TAO APRNA S V04.81 FLU DX (3 YRS AND ABOVE, IM) 02/17/2011 ARIAN US PSYD ANN L V04.81 FLU DX (3 YRS AND ABOVE, IM) 02/17/2011 NELSON OCONNOR JAVAD V04.81 FLU DX (3 YRS AND ABOVE, IM) 02/17/2011 LATONYA TAO APRNA S V04.81 FLU DX (3 YRS AND ABOVE, IM) 02/17/2011 NELSON OCONNOR JAVAD V04.81 FLU DX (3 YRS AND ABOVE, IM) 02/17/2011 ARIAN US PSYD ANN L V04.81 FLU DX (3 YRS AND ABOVE, IM) 02/17/2011 ARIAN US PSYD ANN L V04.81 FLU DX (3 YRS AND ABOVE, IM) 02/17/2011 ARIAN US PSYD ANN L V04.81 FLU DX (3 YRS AND ABOVE, IM) 02/17/2011 LATONYA TAO APRNA S V04.81 FLU DX (3 YRS AND ABOVE, IM) 02/17/2011 ROXANNA OCONNOR CATALINA A V04.81 FLU DX (3 YRS AND ABOVE, IM) 02/17/2011 NELSON OCONNOR JAVAD V04.81 FLU DX (3 YRS AND ABOVE, IM) 02/17/2011 ARIAN US PSYD ANN L V04.81 FLU DX (3 YRS AND ABOVE, IM) 02/17/2011 ARIAN SU PSYD ANN L V04.81 FLU DX (3 YRS AND ABOVE, IM) 02/17/2011 LATONYA TAO APRNA S V04.81 FLU DX (3 YRS AND ABOVE, IM) 02/17/2011 ARIAN US PSYD ANN L V04.81 FLU DX (3 YRS AND ABOVE, IM) 02/17/2011 ARIAN US PSYD L V04.81 FLU DX (3 YRS AND ABOVE, IM) 02/17/2011 ROXANNA RUIZNCATALINA A V04.81 FLU DX (3 YRS AND ABOVE, IM) 02/17/2011 ARIAN US PSYD L V04.81 FLU DX (3 YRS AND ABOVE, IM) 02/17/2011 ARIAN US PSYD L V04.81 FLU DX (3 YRS AND ABOVE, IM) 02/17/2011 ARIAN US PSYD L V04.81 FLU DX (3 YRS AND ABOVE, IM) 03/10/2011 681.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 LEFT RING FINGER 03/10/2011 681.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 LEFT RING FINGER 03/10/2011 681.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 LEFT RING FINGER 03/10/2011 BEVERLY TAO APRN 681.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 LEFT RING FINGER 03/10/2011 ARIAN US PSYD L 681.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 LEFT RING FINGER 03/10/2011 ARIAN US PSYD L 681.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 LEFT RING FINGER 03/10/2011 681.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 LEFT RING FINGER 03/10/2011 ARIAN US PSYD L 681.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 LEFT RING FINGER 03/10/2011 681.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 LEFT RING FINGER 03/10/2011 681.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 LEFT RING FINGER 03/10/2011 681.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 LEFT RING FINGER 03/10/2011 681.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 LEFT RING FINGER 03/10/2011 681.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 LEFT RING FINGER 03/10/2011 681.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 LEFT RING FINGER 03/10/2011 681.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 LEFT RING FINGER 03/10/2011 681.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 LEFT RING FINGER 03/10/2011 681.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 LEFT RING FINGER 03/10/2011 681.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 LEFT RING FINGER 03/10/2011 681.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 LEFT RING FINGER 03/10/2011 681.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 LEFT RING FINGER 03/10/2011 681.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 LEFT RING FINGER 03/10/2011 681.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 LEFT RING FINGER 03/10/2011 ARIAN US PSYD L 681.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 LEFT RING FINGER 03/10/2011 ARIAN US PSYD L 681.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 LEFT RING FINGER 03/10/2011 LUCIANO WILLARD DO 681.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 LEFT RING FINGER 03/10/2011 JERMAINE FERRER APRN 681.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 LEFT RING FINGER 03/10/2011 ARIAN US PSYD 681.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 LEFT RING FINGER 03/10/2011 CATALINA MCKNIGHT APRN 681.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 LEFT RING FINGER 03/10/2011 BEVERLY TAO APRN 681.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 LEFT RING FINGER 03/10/2011 JERMAINE FERRER APRN 681.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 LEFT RING FINGER 03/10/2011 ARIAN US PSYD 681.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 LEFT RING FINGER 03/10/2011 HARLEEN LOU APRN 681.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 LEFT RING FINGER 03/10/2011 HARLEEN LOU APRN 681.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 LEFT RING FINGER 03/10/2011 ARIAN US PSYD 681.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 LEFT RING FINGER 03/10/2011 ARIAN US PSYD 681.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 LEFT RING FINGER 03/10/2011 LOUISE COBOS MD 681.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 LEFT RING FINGER 03/10/2011 JERMAINE FERRER APRN 681.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 LEFT RING FINGER 03/10/2011 ARIAN US PSYD 681.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 LEFT RING FINGER 03/10/2011 ARIAN US PSYD 681.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 LEFT RING FINGER 03/10/2011 ARIAN US PSYD 681.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 LEFT RING FINGER 03/10/2011 ARIAN US PSYD ANN L 681.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 LEFT RING FINGER 03/10/2011 BEVERLY TAO APRN S 681.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 LEFT RING FINGER 03/10/2011 ARIAN US PSYD ANN L 681.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 LEFT RING FINGER 03/10/2011 LUCIANO WILLARD DO 681.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 LEFT RING FINGER 03/10/2011 LOUISE COBOS MD 681.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 LEFT RING FINGER 03/10/2011 ARIAN US PSYD ANN L 681.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 LEFT RING FINGER 03/10/2011 BEVERLY TAO APRN S 681.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 LEFT RING FINGER 03/10/2011 ARIAN US PSYD ANN L 681.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 LEFT RING FINGER 03/10/2011 ARIAN US PSYD ANN L 681.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 LEFT RING FINGER 03/10/2011 BEVERLY TAO APRN S 681.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 LEFT RING FINGER 03/10/2011 ARIAN US PSYD ANN L 681.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 LEFT RING FINGER 03/10/2011 MADAI DAMON APRNETTE 681.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 LEFT RING FINGER 03/10/2011 BEVERLY TAO APRN S 681.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 LEFT RING FINGER 03/10/2011 NELSON OCONNOR JAVAD 681.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 LEFT RING FINGER 03/10/2011 ARIAN US PSYD ANN L 681.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 LEFT RING FINGER 03/10/2011 ARIAN US PSYD ANN L 681.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 LEFT RING FINGER 03/10/2011 RAIAN US PSYD ANN L 681.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 LEFT RING FINGER 03/10/2011 BEVERLY TAO APRN S 681.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 LEFT RING FINGER 03/10/2011 CATALINA MCKNIGHT APRN 681.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 LEFT RING FINGER 03/10/2011 NELSONVANDANA OCONNOR JAVAD 681.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 LEFT RING FINGER 03/10/2011 ARIAN US PSYD L 681.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 LEFT RING FINGER 03/10/2011 ARIAN US PSYD L 681.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 LEFT RING FINGER 03/10/2011 BEVERLY TAO APRN 681.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 LEFT RING FINGER 03/10/2011 ARIAN US PSYD L 681.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 LEFT RING FINGER 03/10/2011 ARIAN US PSYD L 681.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 LEFT RING FINGER 03/10/2011 ROXANNACARLOS EDUARDO OCONNOR CATALINA A 681.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 LEFT RING FINGER 03/10/2011 ARIAN US PSYD L 681.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 LEFT RING FINGER 03/10/2011 ARIAN US PSYD L 681.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 LEFT RING FINGER 03/10/2011 ARIAN US PSYD L 681.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 LEFT RING FINGER 04/16/2011 Ot 789.06 ABDOMINAL PAIN, EPIGASTRIC 04/17/2011 535.50 GASTRITIS UNSPEC 04/17/2011 535.50 GASTRITIS UNSPEC 04/17/2011 535.50 GASTRITIS UNSPEC 04/17/2011 BEVERLY TAO APRN S 535.50 GASTRITIS UNSPEC 04/17/2011 ARIAN US PSYD 535.50 GASTRITIS UNSPEC 04/17/2011 ARIAN US PSYD 535.50 GASTRITIS UNSPEC 04/17/2011 535.50 GASTRITIS UNSPEC 04/17/2011 ARIAN US PSYD 535.50 GASTRITIS UNSPEC 04/17/2011 535.50 GASTRITIS UNSPEC 04/17/2011 535.50 GASTRITIS UNSPEC 04/17/2011 535.50 GASTRITIS UNSPEC 04/17/2011 535.50 GASTRITIS UNSPEC 04/17/2011 535.50 GASTRITIS UNSPEC 04/17/2011 535.50 GASTRITIS UNSPEC 04/17/2011 535.50 GASTRITIS UNSPEC 04/17/2011 535.50 GASTRITIS UNSPEC 04/17/2011 535.50 GASTRITIS UNSPEC 04/17/2011 535.50 GASTRITIS UNSPEC 04/17/2011 535.50 GASTRITIS UNSPEC 04/17/2011 535.50 GASTRITIS UNSPEC 04/17/2011 535.50 GASTRITIS UNSPEC 04/17/2011 535.50 GASTRITIS UNSPEC 04/17/2011 ARIAN US PSYD 535.50 GASTRITIS UNSPEC 04/17/2011 ARIAN US PSYD 535.50 GASTRITIS UNSPEC 04/17/2011 LUCIANO WILLARD DO 535.50 GASTRITIS UNSPEC 04/17/2011 JERMAINE FERRER APRN 535.50 GASTRITIS UNSPEC 04/17/2011 ARIAN US PSYD L 535.50 GASTRITIS UNSPEC 04/17/2011 CATALINA MCKNIGHT APRN A 535.50 GASTRITIS UNSPEC 04/17/2011 BEVERLY TAO APRN S 535.50 GASTRITIS UNSPEC 04/17/2011 JERMAINE FERRER APRN 535.50 GASTRITIS UNSPEC 04/17/2011 ARIAN US PSYD L 535.50 GASTRITIS UNSPEC 04/17/2011 HARLEEN LOU APRN 535.50 GASTRITIS UNSPEC 04/17/2011 HARLEEN LOU APRN 535.50 GASTRITIS UNSPEC 04/17/2011 ARIAN US PSYD L 535.50 GASTRITIS UNSPEC 04/17/2011 ARIAN US PSYD L 535.50 GASTRITIS UNSPEC 04/17/2011 LOUISE COBOS MD 535.50 GASTRITIS UNSPEC 04/17/2011 JERMAINE FERRER APRN 535.50 GASTRITIS UNSPEC 04/17/2011 ARIAN US PSYD L 535.50 GASTRITIS UNSPEC 04/17/2011 ARIAN US PSYD L 535.50 GASTRITIS UNSPEC 04/17/2011 ARIAN US PSYD L 535.50 GASTRITIS UNSPEC 04/17/2011 ARIAN US PSYD L 535.50 GASTRITIS UNSPEC 04/17/2011 BEVERLY TAO APRN S 535.50 GASTRITIS UNSPEC 04/17/2011 ARIAN US PSYD L 535.50 GASTRITIS UNSPEC 04/17/2011 LUCIANO WILLARD DO 535.50 GASTRITIS UNSPEC 04/17/2011 LOUISE COBOS MD 535.50 GASTRITIS UNSPEC 04/17/2011 ARIAN US PSYD L 535.50 GASTRITIS UNSPEC 04/17/2011 BEVERLY TAO APRN S 535.50 GASTRITIS UNSPEC 04/17/2011 MCCLEEARY PSYD, DAISHA L 535.50 GASTRITIS UNSPEC 04/17/2011 ARIAN US PSYD L 535.50 GASTRITIS UNSPEC 04/17/2011 BEVERLY TAO APRN S 535.50 GASTRITIS UNSPEC 04/17/2011 ARIAN US PSYD L 535.50 GASTRITIS UNSPEC 04/17/2011 JAVAD DAMON APRN 535.50 GASTRITIS UNSPEC 04/17/2011 BEVERLY TAO APRN S 535.50 GASTRITIS UNSPEC 04/17/2011 JAVAD DAMON APRN 535.50 GASTRITIS UNSPEC 04/17/2011 ARIAN US PSYD L 535.50 GASTRITIS UNSPEC 04/17/2011 ARIAN US PSYD L 535.50 GASTRITIS UNSPEC 04/17/2011 ARIAN US PSYD L 535.50 GASTRITIS UNSPEC 04/17/2011 BEVERLY TAO APRN S 535.50 GASTRITIS UNSPEC 04/17/2011 CATALINA MCKNIGHT APRN A 535.50 GASTRITIS UNSPEC 04/17/2011 JAVAD DAMON APRN 535.50 GASTRITIS UNSPEC 04/17/2011 ARIAN US PSYD L 535.50 GASTRITIS UNSPEC 04/17/2011 ARIAN US PSYD L 535.50 GASTRITIS UNSPEC 04/17/2011 BEVERLY TAO APRN S 535.50 GASTRITIS UNSPEC 04/17/2011 ARIAN US PSYD L 535.50 GASTRITIS UNSPEC 04/17/2011 ARIAN US PSYD L 535.50 GASTRITIS UNSPEC 04/17/2011 CATALINA MCKNIGHT APRN A 535.50 GASTRITIS UNSPEC 04/17/2011 ARIAN US PSYD L 535.50 GASTRITIS UNSPEC 04/17/2011 ARIAN US PSYD L 535.50 GASTRITIS UNSPEC 04/17/2011 ARIAN US PSYD L 535.50 GASTRITIS UNSPEC 05/29/2011 300.02 AN GEN ANXIETY 05/29/2011 300.02 AN GEN ANXIETY 05/29/2011 300.02 AN GEN ANXIETY 05/29/2011 BEVERLY TAO APRN 300.02 AN GEN ANXIETY 05/29/2011 ARIAN US PSYD L 300.02 AN GEN ANXIETY 05/29/2011 ARIAN US PSYD L 300.02 AN GEN ANXIETY 05/29/2011 300.02 AN GEN ANXIETY 05/29/2011 ARIAN US PSYD 300.02 AN GEN ANXIETY 05/29/2011 300.02 AN GEN ANXIETY 05/29/2011 300.02 AN GEN ANXIETY 05/29/2011 300.02 AN GEN ANXIETY 05/29/2011 300.02 AN GEN ANXIETY 05/29/2011 300.02 AN GEN ANXIETY 05/29/2011 300.02 AN GEN ANXIETY 05/29/2011 300.02 AN GEN ANXIETY 05/29/2011 300.02 AN GEN ANXIETY 05/29/2011 300.02 AN GEN ANXIETY 05/29/2011 300.02 AN GEN ANXIETY 05/29/2011 300.02 AN GEN ANXIETY 05/29/2011 300.02 AN GEN ANXIETY 05/29/2011 300.02 AN GEN ANXIETY 05/29/2011 300.02 AN GEN ANXIETY 05/29/2011 ARIAN US PSYD 300.02 AN GEN ANXIETY 05/29/2011 ARIAN US PSYD 300.02 AN GEN ANXIETY 05/29/2011 LUCIANO WILLARD DO 300.02 AN GEN ANXIETY 05/29/2011 JERMAINE FERRER APRN 300.02 AN GEN ANXIETY 05/29/2011 ARIAN US PSYD 300.02 AN GEN ANXIETY 05/29/2011 CATALINA MCKNIGHT APRN 300.02 AN GEN ANXIETY 05/29/2011 BEVERLY TAO APRN 300.02 AN GEN ANXIETY 05/29/2011 JERMAINE FERRER APRN 300.02 AN GEN ANXIETY 05/29/2011 ARIAN US PSYD 300.02 AN GEN ANXIETY 05/29/2011 HARLEEN LOU APRN 300.02 AN GEN ANXIETY 05/29/2011 HARLEEN LOU APRN 300.02 AN GEN ANXIETY 05/29/2011 ARIAN US PSYD 300.02 AN GEN ANXIETY 05/29/2011 ARIAN US PSYD 300.02 AN GEN ANXIETY 05/29/2011 LOUISE COBOS MD 300.02 AN GEN ANXIETY 05/29/2011 JERMAINE FERRER APRN 300.02 AN GEN ANXIETY 05/29/2011 MCCLEEARY PSYD, DAISHA L 300.02 AN GEN ANXIETY 05/29/2011 ARIAN US PSYD ANN L 300.02 AN GEN ANXIETY 05/29/2011 ARIAN US PSYD ANN L 300.02 AN GEN ANXIETY 05/29/2011 ARIAN US PSYD ANN L 300.02 AN GEN ANXIETY 05/29/2011 BEVERLY TAO APRN S 300.02 AN GEN ANXIETY 05/29/2011 ARIAN US PSYD ANN L 300.02 AN GEN ANXIETY 05/29/2011 LUCIANO WILLARD DO 300.02 AN GEN ANXIETY 05/29/2011 LOUISE COBOS MD 300.02 AN GEN ANXIETY 05/29/2011 ARIAN US PSYD ANN L 300.02 AN GEN ANXIETY 05/29/2011 BEVERLY TAO APRN S 300.02 AN GEN ANXIETY 05/29/2011 ARIAN US PSYD ANN L 300.02 AN GEN ANXIETY 05/29/2011 ARIAN US PSYD ANN L 300.02 AN GEN ANXIETY 05/29/2011 BEVERLY TAO APRN S 300.02 AN GEN ANXIETY 05/29/2011 ARIAN US PSYD ANN L 300.02 AN GEN ANXIETY 05/29/2011 NELSON OCONNOR JAVAD 300.02 AN GEN ANXIETY 05/29/2011 BEVERLY TAO APRN S 300.02 AN GEN ANXIETY 05/29/2011 NELSON OCONNOR JAVAD 300.02 AN GEN ANXIETY 05/29/2011 ARIAN US PSYD ANN L 300.02 AN GEN ANXIETY 05/29/2011 ARIAN US PSYD ANN L 300.02 AN GEN ANXIETY 05/29/2011 ARIAN US PSYD ANN L 300.02 AN GEN ANXIETY 05/29/2011 LATONYA TAO APRNA S 300.02 AN GEN ANXIETY 05/29/2011 CATALINA MCKNIGHT APRN A 300.02 AN GEN ANXIETY 05/29/2011 NELSONVANDANA OCONNOR JAVAD 300.02 AN GEN ANXIETY 05/29/2011 ARIAN US PSYD ANN L 300.02 AN GEN ANXIETY 05/29/2011 ARIAN US PSYD ANN L 300.02 AN GEN ANXIETY 05/29/2011 BEVERLY TAO APRN S 300.02 AN GEN ANXIETY 05/29/2011 ARIAN US PSYD L 300.02 AN GEN ANXIETY 05/29/2011 ARIAN US PSYD L 300.02 AN GEN ANXIETY 05/29/2011 ROXANNACATALINA Solitario APRN A 300.02 AN GEN ANXIETY 05/29/2011 ARIAN US PSYD ANN L 300.02 AN GEN ANXIETY 05/29/2011 ARIAN US PSYD ANN L 300.02 AN GEN ANXIETY 05/29/2011 ARIAN US PSYD ANN L 300.02 AN GEN ANXIETY 06/01/2011 787.01 NAUSEA WITH VOMITING 06/01/2011 789.07 ABDOMINAL PAIN GENERALIZED 06/01/2011 787.01 NAUSEA WITH VOMITING 06/01/2011 789.07 ABDOMINAL PAIN GENERALIZED 06/01/2011 787.01 NAUSEA WITH VOMITING 06/01/2011 789.07 ABDOMINAL PAIN GENERALIZED 06/01/2011 BEVERLY TAO APRN S 787.01 NAUSEA WITH VOMITING 06/01/2011 BEVERLY TAO APRN 789.07 ABDOMINAL PAIN GENERALIZED 06/01/2011 ARIAN US PSYD L 787.01 NAUSEA WITH VOMITING 06/01/2011 ARIAN US PSYD L 789.07 ABDOMINAL PAIN GENERALIZED 06/01/2011 ARIAN US PSYD ANN L 787.01 NAUSEA WITH VOMITING 06/01/2011 ARIAN US PSYD ANN L 789.07 ABDOMINAL PAIN GENERALIZED 06/01/2011 787.01 NAUSEA WITH VOMITING 06/01/2011 789.07 ABDOMINAL PAIN GENERALIZED 06/01/2011 ARIAN US PSYD ANN L 787.01 NAUSEA WITH VOMITING 06/01/2011 ARIAN US PSYD ANN L 789.07 ABDOMINAL PAIN GENERALIZED 06/01/2011 787.01 NAUSEA WITH VOMITING 06/01/2011 789.07 ABDOMINAL PAIN GENERALIZED 06/01/2011 787.01 NAUSEA WITH VOMITING 06/01/2011 789.07 ABDOMINAL PAIN GENERALIZED 06/01/2011 787.01 NAUSEA WITH VOMITING 06/01/2011 789.07 ABDOMINAL PAIN GENERALIZED 06/01/2011 787.01 NAUSEA WITH VOMITING 06/01/2011 789.07 ABDOMINAL PAIN GENERALIZED 06/01/2011 787.01 NAUSEA WITH VOMITING 06/01/2011 789.07 ABDOMINAL PAIN GENERALIZED 06/01/2011 787.01 NAUSEA WITH VOMITING 06/01/2011 789.07 ABDOMINAL PAIN GENERALIZED 06/01/2011 787.01 NAUSEA WITH VOMITING 06/01/2011 789.07 ABDOMINAL PAIN GENERALIZED 06/01/2011 787.01 NAUSEA WITH VOMITING 06/01/2011 789.07 ABDOMINAL PAIN GENERALIZED 06/01/2011 787.01 NAUSEA WITH VOMITING 06/01/2011 789.07 ABDOMINAL PAIN GENERALIZED 06/01/2011 787.01 NAUSEA WITH VOMITING 06/01/2011 789.07 ABDOMINAL PAIN GENERALIZED 06/01/2011 787.01 NAUSEA WITH VOMITING 06/01/2011 789.07 ABDOMINAL PAIN GENERALIZED 06/01/2011 787.01 NAUSEA WITH VOMITING 06/01/2011 789.07 ABDOMINAL PAIN GENERALIZED 06/01/2011 787.01 NAUSEA WITH VOMITING 06/01/2011 789.07 ABDOMINAL PAIN GENERALIZED 06/01/2011 787.01 NAUSEA WITH VOMITING 06/01/2011 789.07 ABDOMINAL PAIN GENERALIZED 06/01/2011 ARIAN US PSYD 787.01 NAUSEA WITH VOMITING 06/01/2011 ARIAN US PSYD 789.07 ABDOMINAL PAIN GENERALIZED 06/01/2011 ARIAN US PSYD L 787.01 NAUSEA WITH VOMITING 06/01/2011 ARIAN US PSYD L 789.07 ABDOMINAL PAIN GENERALIZED 06/01/2011 WILLARD LUCIANO MORRIS K 787.01 NAUSEA WITH VOMITING 06/01/2011 WILLARD DOLUCIANO K 789.07 ABDOMINAL PAIN GENERALIZED 06/01/2011 JERMAINE FERRER APRN 787.01 NAUSEA WITH VOMITING 06/01/2011 JERMAINE FERRER APRN 789.07 ABDOMINAL PAIN GENERALIZED 06/01/2011 ARIAN US PSYD 787.01 NAUSEA WITH VOMITING 06/01/2011 ARIAN US PSYD 789.07 ABDOMINAL PAIN GENERALIZED 06/01/2011 CATALINA MCKNIGHT APRN 787.01 NAUSEA WITH VOMITING 06/01/2011 ROXANNA TAXI PROPRIETOR, CAT[employer] A 789.07 ABDOMINAL PAIN GENERALIZED 06/01/2011 BEVERLY TAO APRN S 787.01 NAUSEA WITH VOMITING 06/01/2011 BEVERLY TAO APRN S 789.07 ABDOMINAL PAIN GENERALIZED 06/01/2011 JERMAINE FERRER APRN 787.01 NAUSEA WITH VOMITING 06/01/2011 JERMAINE FERRER APRN 789.07 ABDOMINAL PAIN GENERALIZED 06/01/2011 ARIAN SU PSYD ANN L 787.01 NAUSEA WITH VOMITING 06/01/2011 ARIAN US PSYD ANN L 789.07 ABDOMINAL PAIN GENERALIZED 06/01/2011 HARLEEN LOU APRN T 787.01 NAUSEA WITH VOMITING 06/01/2011 HARLEEN LOU APRN T 789.07 ABDOMINAL PAIN GENERALIZED 06/01/2011 HARLEEN LOU APRN T 787.01 NAUSEA WITH VOMITING 06/01/2011 HARLEEN LOU APRN T 789.07 ABDOMINAL PAIN GENERALIZED 06/01/2011 ARIAN US PSYD L 787.01 NAUSEA WITH VOMITING 06/01/2011 ARIAN US PSYD ANN L 789.07 ABDOMINAL PAIN GENERALIZED 06/01/2011 ARIAN US PSYD ANN L 787.01 NAUSEA WITH VOMITING 06/01/2011 ARIAN US PSYD ANN L 789.07 ABDOMINAL PAIN GENERALIZED 06/01/2011 LOUISE COBOS MD 787.01 NAUSEA WITH VOMITING 06/01/2011 LOUISE COBOS MD 789.07 ABDOMINAL PAIN GENERALIZED 06/01/2011 JERMAINE FERRER APRN 787.01 NAUSEA WITH VOMITING 06/01/2011 JERMAINE FERRER APRN 789.07 ABDOMINAL PAIN GENERALIZED 06/01/2011 ARIAN US PSYD ANN L 787.01 NAUSEA WITH VOMITING 06/01/2011 ARIAN US PSYD ANN L 789.07 ABDOMINAL PAIN GENERALIZED 06/01/2011 ARIAN US PSYD ANN L 787.01 NAUSEA WITH VOMITING 06/01/2011 ARIAN US PSYD ANN L 789.07 ABDOMINAL PAIN GENERALIZED 06/01/2011 ARIAN US PSYD ANN L 787.01 NAUSEA WITH VOMITING 06/01/2011 ARIAN US PSYD ANN L 789.07 ABDOMINAL PAIN GENERALIZED 06/01/2011 ARIAN US PSYD ANN L 787.01 NAUSEA WITH VOMITING 06/01/2011 ARIAN US PSYD ANN L 789.07 ABDOMINAL PAIN GENERALIZED 06/01/2011 LATONYA TAO APRNA S 787.01 NAUSEA WITH VOMITING 06/01/2011 CLAUDE TAO APRNNDA S 789.07 ABDOMINAL PAIN GENERALIZED 06/01/2011 ARIAN US PSYD ANN L 787.01 NAUSEA WITH VOMITING 06/01/2011 ARIAN US PSYD ANN L 789.07 ABDOMINAL PAIN GENERALIZED 06/01/2011 WILLARD LUCIANO MORRIS 787.01 NAUSEA WITH VOMITING 06/01/2011 LUCIANO WILLARD DO 789.07 ABDOMINAL PAIN GENERALIZED 06/01/2011 LOUISE COBOS MD 787.01 NAUSEA WITH VOMITING 06/01/2011 LOUISE COBOS MD 789.07 ABDOMINAL PAIN GENERALIZED 06/01/2011 ARIAN US PSYD ANN L 787.01 NAUSEA WITH VOMITING 06/01/2011 ARIAN US PSYD ANN L 789.07 ABDOMINAL PAIN GENERALIZED 06/01/2011 LATONYA TAO APRNA S 787.01 NAUSEA WITH VOMITING 06/01/2011 LATONYA TAO APRNA S 789.07 ABDOMINAL PAIN GENERALIZED 06/01/2011 ARIAN US PSYD ANN L 787.01 NAUSEA WITH VOMITING 06/01/2011 ARIAN US PSYD ANN L 789.07 ABDOMINAL PAIN GENERALIZED 06/01/2011 ARIAN US PSYD ANN L 787.01 NAUSEA WITH VOMITING 06/01/2011 ARIAN US PSYD ANN L 789.07 ABDOMINAL PAIN GENERALIZED 06/01/2011 CLAUDE TAO APRNNDA S 787.01 NAUSEA WITH VOMITING 06/01/2011 CLAUDE TAO APRNNDA S 789.07 ABDOMINAL PAIN GENERALIZED 06/01/2011 ARIAN US PSYD ANN L 787.01 NAUSEA WITH VOMITING 06/01/2011 ARIAN US PSYD ANN L 789.07 ABDOMINAL PAIN GENERALIZED 06/01/2011 JAVAD DAMON APRN 787.01 NAUSEA WITH VOMITING 06/01/2011 NELSON TAXI PROPRIETOR, JAVAD 789.07 ABDOMINAL PAIN GENERALIZED 06/01/2011 AISLINN TAXI PROPRIETOR, BEVERLY S 787.01 NAUSEA WITH VOMITING 06/01/2011 AISLINN TAXI PROPRIETOR, BEVERLY S 789.07 ABDOMINAL PAIN GENERALIZED 06/01/2011 NELSON TAXI PROPRIETOR, JAVAD 787.01 NAUSEA WITH VOMITING 06/01/2011 NELSON TAXI PROPRIETOR, JAVAD 789.07 ABDOMINAL PAIN GENERALIZED 06/01/2011 ARIAN US PSYD ANN L 787.01 NAUSEA WITH VOMITING 06/01/2011 ARIAN US PSYD ANN L 789.07 ABDOMINAL PAIN GENERALIZED 06/01/2011 ARIAN US PSYD ANN L 787.01 NAUSEA WITH VOMITING 06/01/2011 ARIAN US PSYD ANN L 789.07 ABDOMINAL PAIN GENERALIZED 06/01/2011 ARIAN US PSYD ANN L 787.01 NAUSEA WITH VOMITING 06/01/2011 ARIAN US PSYD ANN L 789.07 ABDOMINAL PAIN GENERALIZED 06/01/2011 CLAUDE TAO APRNNDA S 787.01 NAUSEA WITH VOMITING 06/01/2011 AISLINN TAXI PROPRIETOR, BEVERLY S 789.07 ABDOMINAL PAIN GENERALIZED 06/01/2011 ROXANNAKassi OCONNOR CATALINA A 787.01 NAUSEA WITH VOMITING 06/01/2011 ROXANNA TAXI PROPRIETOR, CATALINA A 789.07 ABDOMINAL PAIN GENERALIZED 06/01/2011 NELSON TAXI PROPRIETOR, JAVAD 787.01 NAUSEA WITH VOMITING 06/01/2011 NELSON TAXI PROPRIETOR, JAVAD 789.07 ABDOMINAL PAIN GENERALIZED 06/01/2011 ARIAN US PSYD ANN L 787.01 NAUSEA WITH VOMITING 06/01/2011 ARIAN US PSYD ANN L 789.07 ABDOMINAL PAIN GENERALIZED 06/01/2011 ARIAN US PSYD ANN L 787.01 NAUSEA WITH VOMITING 06/01/2011 ARIAN US PSYD ANN L 789.07 ABDOMINAL PAIN GENERALIZED 06/01/2011 AISLINN OCONNOR BEVERLY S 787.01 NAUSEA WITH VOMITING 06/01/2011 CLAUDE TAO APRNNDA S 789.07 ABDOMINAL PAIN GENERALIZED 06/01/2011 ARIAN US PSYD ANN L 787.01 NAUSEA WITH VOMITING 06/01/2011 ARIAN US PSYD ANN L 789.07 ABDOMINAL PAIN GENERALIZED 06/01/2011 ARIAN US PSYD ANN L 787.01 NAUSEA WITH VOMITING 06/01/2011 ARIAN US PSYD ANN L 789.07 ABDOMINAL PAIN GENERALIZED 06/01/2011 ROXANNA TAXI PROPRIETOR, CATALINA A 787.01 NAUSEA WITH VOMITING 06/01/2011 ROXANNA TAXI PROPRIETOR, CATALINA A 789.07 ABDOMINAL PAIN GENERALIZED 06/01/2011 ARIAN US PSYD ANN L 787.01 NAUSEA WITH VOMITING 06/01/2011 ARIAN US PSYD ANN L 789.07 ABDOMINAL PAIN GENERALIZED 06/01/2011 ARIAN US PSYD ANN L 787.01 NAUSEA WITH VOMITING 06/01/2011 ARIAN US PSYD ANN L 789.07 ABDOMINAL PAIN GENERALIZED 06/01/2011 ARIAN US PSYD ANN L 787.01 NAUSEA WITH VOMITING 06/01/2011 ARIAN US PSYD ANN L 789.07 ABDOMINAL PAIN GENERALIZED 06/17/2011 787.91 DIARRHEA 06/17/2011 787.91 DIARRHEA 06/17/2011 787.91 DIARRHEA 06/17/2011 BEVERLY TAO APRN 787.91 DIARRHEA 06/17/2011 ARIAN US PSYD ANN L 787.91 DIARRHEA 06/17/2011 ARIAN US PSYD ANN L 787.91 DIARRHEA 06/17/2011 787.91 DIARRHEA 06/17/2011 ARIAN US PSYD ANN L 787.91 DIARRHEA 06/17/2011 787.91 DIARRHEA 06/17/2011 787.91 DIARRHEA 06/17/2011 787.91 DIARRHEA 06/17/2011 787.91 DIARRHEA 06/17/2011 787.91 DIARRHEA 06/17/2011 787.91 DIARRHEA 06/17/2011 787.91 DIARRHEA 06/17/2011 787.91 DIARRHEA 06/17/2011 787.91 DIARRHEA 06/17/2011 787.91 DIARRHEA 06/17/2011 787.91 DIARRHEA 06/17/2011 787.91 DIARRHEA 06/17/2011 787.91 DIARRHEA 06/17/2011 787.91 DIARRHEA 06/17/2011 ARIAN US PSYD ANN L 787.91 DIARRHEA 06/17/2011 ARIAN US PSYD ANN L 787.91 DIARRHEA 06/17/2011 LUCIANO WILLARD DO K 787.91 DIARRHEA 06/17/2011 JERMAINE FERRER APRN 787.91 DIARRHEA 06/17/2011 ARIAN US PSYD ANN L 787.91 DIARRHEA 06/17/2011 JASMIN MCKNIGHT APRNIDI A 787.91 DIARRHEA 06/17/2011 CLAUDE TAO APRNNDA S 787.91 DIARRHEA 06/17/2011 JERMAINE FERRER APRN 787.91 DIARRHEA 06/17/2011 ARIAN US PSYD ANN L 787.91 DIARRHEA 06/17/2011 HARLEEN LOU APRN T 787.91 DIARRHEA 06/17/2011 DASHA OCONNOR HARLEEN T 787.91 DIARRHEA 06/17/2011 ARIAN US PSYD ANN L 787.91 DIARRHEA 06/17/2011 ARIAN US PSYD ANN L 787.91 DIARRHEA 06/17/2011 LOUISE COBOS MD 787.91 DIARRHEA 06/17/2011 JERMAINE FERRER APRN 787.91 DIARRHEA 06/17/2011 ARIAN US PSYD ANN L 787.91 DIARRHEA 06/17/2011 ARIAN US PSYD ANN L 787.91 DIARRHEA 06/17/2011 ARIAN US PSYD ANN L 787.91 DIARRHEA 06/17/2011 ARIAN US PSYD ANN L 787.91 DIARRHEA 06/17/2011 LATONYA TAO APRNA S 787.91 DIARRHEA 06/17/2011 ARIAN US PSYD ANN L 787.91 DIARRHEA 06/17/2011 LUCIANO WILLARD DO K 787.91 DIARRHEA 06/17/2011 LOUISE COBOS MD 787.91 DIARRHEA 06/17/2011 ARIAN US PSYD ANN L 787.91 DIARRHEA 06/17/2011 CLAUDE TAO APRNNDA S 787.91 DIARRHEA 06/17/2011 ARIAN US PSYD ANN L 787.91 DIARRHEA 06/17/2011 ARIAN US PSYD ANN L 787.91 DIARRHEA 06/17/2011 CLAUDE TAO APRNNDA S 787.91 DIARRHEA 06/17/2011 ARIAN US PSYD ANN L 787.91 DIARRHEA 06/17/2011 NELSON TAXI PROPRIETOR, JAVAD 787.91 DIARRHEA 06/17/2011 AISLINN OCNONOR BEVERLY S 787.91 DIARRHEA 06/17/2011 NELSON TAXI PROPRIETOR, JAVAD 787.91 DIARRHEA 06/17/2011 ARIAN US PSYD ANN L 787.91 DIARRHEA 06/17/2011 ARIAN US PSYD ANN L 787.91 DIARRHEA 06/17/2011 ARIAN US PSYD ANN L 787.91 DIARRHEA 06/17/2011 AISLINN OCONNOR BEVERLY S 787.91 DIARRHEA 06/17/2011 ROXANNA OCONNOR, CATALINA A 787.91 DIARRHEA 06/17/2011 NELSON TAXI PROPRIETOR, JAVAD 787.91 DIARRHEA 06/17/2011 ARIAN US PSYD ANN L 787.91 DIARRHEA 06/17/2011 ARIAN US PSYD ANN L 787.91 DIARRHEA 06/17/2011 CLAUDE TAO APRNNDA S 787.91 DIARRHEA 06/17/2011 ARIAN US PSYD ANN L 787.91 DIARRHEA 06/17/2011 ARIAN US PSYD ANN L 787.91 DIARRHEA 06/17/2011 ROXANNA OCONNOR CATALINA A 787.91 DIARRHEA 06/17/2011 ARIAN US PSYD ANN L 787.91 DIARRHEA 06/17/2011 ARIAN US PSYD ANN L 787.91 DIARRHEA 06/17/2011 ARIAN US PSYD ANN L 787.91 DIARRHEA 09/07/2011 787.1 HEARTBURN 09/07/2011 787.1 HEARTBURN 09/07/2011 787.1 HEARTBURN 09/07/2011 CLAUDE TAO APRNNDA S 787.1 HEARTBURN 09/07/2011 ARIAN US PSYD ANN L 787.1 HEARTBURN 09/07/2011 ARIAN US PSYD ANN L 787.1 HEARTBURN 09/07/2011 787.1 HEARTBURN 09/07/2011 ARIAN US PSYD 787.1 HEARTBURN 09/07/2011 787.1 HEARTBURN 09/07/2011 787.1 HEARTBURN 09/07/2011 787.1 HEARTBURN 09/07/2011 787.1 HEARTBURN 09/07/2011 787.1 HEARTBURN 09/07/2011 787.1 HEARTBURN 09/07/2011 787.1 HEARTBURN 09/07/2011 787.1 HEARTBURN 09/07/2011 787.1 HEARTBURN 09/07/2011 787.1 HEARTBURN 09/07/2011 787.1 HEARTBURN 09/07/2011 787.1 HEARTBURN 09/07/2011 787.1 HEARTBURN 09/07/2011 787.1 HEARTBURN 09/07/2011 ARIAN US PSYD 787.1 HEARTBURN 09/07/2011 ARIAN US PSYD 787.1 HEARTBURN 09/07/2011 LUCIANO WILLARD DO 787.1 HEARTBURN 09/07/2011 JERMAINE FERRER APRN 787.1 HEARTBURN 09/07/2011 ARIAN US PSYD 787.1 HEARTBURN 09/07/2011 CATALINA MCKNIGHT APRN 787.1 HEARTBURN 09/07/2011 BEVERLY TOA APRN 787.1 HEARTBURN 09/07/2011 JERMAINE FERRER APRN 787.1 HEARTBURN 09/07/2011 ARIAN US PSYD 787.1 HEARTBURN 09/07/2011 HARLEEN LOU APRN 787.1 HEARTBURN 09/07/2011 HARLEEN LOU APRN 787.1 HEARTBURN 09/07/2011 ARIAN US PSYD 787.1 HEARTBURN 09/07/2011 ARIAN US PSYD 787.1 HEARTBURN 09/07/2011 LOUISE COBOS MD 787.1 HEARTBURN 09/07/2011 JERMAINE FERRER APRN 787.1 HEARTBURN 09/07/2011 ARIAN US PSYD ANN L 787.1 HEARTBURN 09/07/2011 ABEBA GARZA, DAISHA L 787.1 HEARTBURN 09/07/2011 ARIAN US PSYD ANN L 787.1 HEARTBURN 09/07/2011 ABEBA GARZA, DAISHA L 787.1 HEARTBURN 09/07/2011 AISLINN OCONNOR BEVERLY S 787.1 HEARTBURN 09/07/2011 ARIAN US PSYD ANN L 787.1 HEARTBURN 09/07/2011 LUCIANO WILLARD DO 787.1 HEARTBURN 09/07/2011 LOUISE COBOS MD 787.1 HEARTBURN 09/07/2011 ARIAN US PSYD ANN L 787.1 HEARTBURN 09/07/2011 LATONYA TAO APRNA S 787.1 HEARTBURN 09/07/2011 ARIAN US PSYD ANN L 787.1 HEARTBURN 09/07/2011 ARIAN US PSYD ANN L 787.1 HEARTBURN 09/07/2011 AISLINN OCONNOR BEVERLY S 787.1 HEARTBURN 09/07/2011 ARIAN US PSYD ANN L 787.1 HEARTBURN 09/07/2011 NELSONVANDANA OCONNOR JVAAD 787.1 HEARTBURN 09/07/2011 CLAUDE TAO APRNNDA S 787.1 HEARTBURN 09/07/2011 NELSON OCONNOR JAVAD 787.1 HEARTBURN 09/07/2011 ARIAN US PSYD ANN L 787.1 HEARTBURN 09/07/2011 ARIAN US PSYD ANN L 787.1 HEARTBURN 09/07/2011 ARIAN US PSYD ANN L 787.1 HEARTBURN 09/07/2011 AISLINN OCONNOR BEVERLY S 787.1 HEARTBURN 09/07/2011 CATALINA MCKNIGHT APRN 787.1 HEARTBURN 09/07/2011 NELSON TAXI PROPRIETOR, JAVAD 787.1 HEARTBURN 09/07/2011 ARIAN US PSYD ANN L 787.1 HEARTBURN 09/07/2011 ARIAN US PSYD ANN L 787.1 HEARTBURN 09/07/2011 BEVERLY TAO APRN S 787.1 HEARTBURN 09/07/2011 ARIAN US PSYD L 787.1 HEARTBURN 09/07/2011 ARIAN US PSYD L 787.1 HEARTBURN 09/07/2011 ROXANNA RUIZNCATALINA A 787.1 HEARTBURN 09/07/2011 ARIAN US PSYD L 787.1 HEARTBURN 09/07/2011 ARIAN US PSYD L 787.1 HEARTBURN 09/07/2011 ARIAN US PSYD ANN L 787.1 HEARTBURN 01/01/2012 296.60 MO BIPOLAR I MIXED UNSPECIFIED 01/01/2012 296.60 MO BIPOLAR I MIXED UNSPECIFIED 01/01/2012 296.60 MO BIPOLAR I MIXED UNSPECIFIED 01/01/2012 BEVERLY TAO APRN S 296.60 MO BIPOLAR I MIXED UNSPECIFIED 01/01/2012 ARIAN US PSYD L 296.60 MO BIPOLAR I MIXED UNSPECIFIED 01/01/2012 ARIAN US PSYD L 296.60 MO BIPOLAR I MIXED UNSPECIFIED 01/01/2012 296.60 MO BIPOLAR I MIXED UNSPECIFIED 01/01/2012 ARIAN US PSYD L 296.60 MO BIPOLAR I MIXED UNSPECIFIED 01/01/2012 296.60 MO BIPOLAR I MIXED UNSPECIFIED 01/01/2012 296.60 MO BIPOLAR I MIXED UNSPECIFIED 01/01/2012 296.60 MO BIPOLAR I MIXED UNSPECIFIED 01/01/2012 296.60 MO BIPOLAR I MIXED UNSPECIFIED 01/01/2012 296.60 MO BIPOLAR I MIXED UNSPECIFIED 01/01/2012 296.60 MO BIPOLAR I MIXED UNSPECIFIED 01/01/2012 296.60 MO BIPOLAR I MIXED UNSPECIFIED 01/01/2012 296.60 MO BIPOLAR I MIXED UNSPECIFIED 01/01/2012 296.60 MO BIPOLAR I MIXED UNSPECIFIED 01/01/2012 296.60 MO BIPOLAR I MIXED UNSPECIFIED 01/01/2012 296.60 MO BIPOLAR I MIXED UNSPECIFIED 01/01/2012 296.60 MO BIPOLAR I MIXED UNSPECIFIED 01/01/2012 296.60 MO BIPOLAR I MIXED UNSPECIFIED 01/01/2012 296.60 MO BIPOLAR I MIXED UNSPECIFIED 01/01/2012 ARIAN US PSYD L 296.60 MO BIPOLAR I MIXED UNSPECIFIED 01/01/2012 ARIAN US PSYD ANN L 296.60 MO BIPOLAR I MIXED UNSPECIFIED 01/01/2012 LUCIANO WILLARD DO K 296.60 MO BIPOLAR I MIXED UNSPECIFIED 01/01/2012 JERMAINE FERRER APRN 296.60 MO BIPOLAR I MIXED UNSPECIFIED 01/01/2012 ARIAN US PSYD ANN L 296.60 MO BIPOLAR I MIXED UNSPECIFIED 01/01/2012 JASMIN MCKNIGHT APRNIDI A 296.60 MO BIPOLAR I MIXED UNSPECIFIED 01/01/2012 AISLINN OCONNOR BEVERLY S 296.60 MO BIPOLAR I MIXED UNSPECIFIED 01/01/2012 JERMAINE FERRER APRN 296.60 MO BIPOLAR I MIXED UNSPECIFIED 01/01/2012 ARIAN US PSYD ANN L 296.60 MO BIPOLAR I MIXED UNSPECIFIED 01/01/2012 HARLEEN LOU APRN 296.60 MO BIPOLAR I MIXED UNSPECIFIED 01/01/2012 HARLEEN LOU APRN 296.60 MO BIPOLAR I MIXED UNSPECIFIED 01/01/2012 ARIAN US PSYD ANN L 296.60 MO BIPOLAR I MIXED UNSPECIFIED 01/01/2012 ARIAN US PSYD ANN L 296.60 MO BIPOLAR I MIXED UNSPECIFIED 01/01/2012 PAPITO GAYLE, LOUISE 296.60 MO BIPOLAR I MIXED UNSPECIFIED 01/01/2012 JERMAINE FERRER APRN D 296.60 MO BIPOLAR I MIXED UNSPECIFIED 01/01/2012 ARIAN US PSYD ANN L 296.60 MO BIPOLAR I MIXED UNSPECIFIED 01/01/2012 ARIAN US PSYD ANN L 296.60 MO BIPOLAR I MIXED UNSPECIFIED 01/01/2012 ARIAN US PSYD ANN L 296.60 MO BIPOLAR I MIXED UNSPECIFIED 01/01/2012 ARIAN US PSYD ANN L 296.60 MO BIPOLAR I MIXED UNSPECIFIED 01/01/2012 AISLINN OCONNOR BEVERLY S 296.60 MO BIPOLAR I MIXED UNSPECIFIED 01/01/2012 ARIAN US PSYD ANN L 296.60 MO BIPOLAR I MIXED UNSPECIFIED 01/01/2012 LUCIANO WILLARD DO K 296.60 MO BIPOLAR I MIXED UNSPECIFIED 01/01/2012 PAPITO GAYLE, LOUISE 296.60 MO BIPOLAR I MIXED UNSPECIFIED 01/01/2012 ARIAN US PSYD ANN L 296.60 MO BIPOLAR I MIXED UNSPECIFIED 01/01/2012 AISLINN OCONNOR BEVERLY S 296.60 MO BIPOLAR I MIXED UNSPECIFIED 01/01/2012 ARIAN US PSYD ANN L 296.60 MO BIPOLAR I MIXED UNSPECIFIED 01/01/2012 ARIAN US PSYD ANN L 296.60 MO BIPOLAR I MIXED UNSPECIFIED 01/01/2012 AISLINN OCONNOR, BEVERLY S 296.60 MO BIPOLAR I MIXED UNSPECIFIED 01/01/2012 ARIAN US PSYD ANN L 296.60 MO BIPOLAR I MIXED UNSPECIFIED 01/01/2012 NELSON TAXI PROPRIETOR, JAVAD 296.60 MO BIPOLAR I MIXED UNSPECIFIED 01/01/2012 AISLINN OCONNOR, BEVERLY S 296.60 MO BIPOLAR I MIXED UNSPECIFIED 01/01/2012 NELSON OCONNOR, JAVAD 296.60 MO BIPOLAR I MIXED UNSPECIFIED 01/01/2012 ARIAN US PSYD ANN L 296.60 MO BIPOLAR I MIXED UNSPECIFIED 01/01/2012 ARIAN US PSYD ANN L 296.60 MO BIPOLAR I MIXED UNSPECIFIED 01/01/2012 ARIAN US PSYD ANN L 296.60 MO BIPOLAR I MIXED UNSPECIFIED 01/01/2012 AISLINN OCONNOR, BEVERLY S 296.60 MO BIPOLAR I MIXED UNSPECIFIED 01/01/2012 ROXANNA OCONNOR, CATALINA A 296.60 MO BIPOLAR I MIXED UNSPECIFIED 01/01/2012 NELSON OCONNOR JAVAD 296.60 MO BIPOLAR I MIXED UNSPECIFIED 01/01/2012 ARIAN US PSYD ANN L 296.60 MO BIPOLAR I MIXED UNSPECIFIED 01/01/2012 ARIAN US PSYD ANN L 296.60 MO BIPOLAR I MIXED UNSPECIFIED 01/01/2012 AISLINN OCONNOR BEVERLY S 296.60 MO BIPOLAR I MIXED UNSPECIFIED 01/01/2012 ARIAN US PSYD ANN L 296.60 MO BIPOLAR I MIXED UNSPECIFIED 01/01/2012 ARIAN US PSYD ANN L 296.60 MO BIPOLAR I MIXED UNSPECIFIED 01/01/2012 ROXANNA TAXI PROPRIETOR, CATALINA A 296.60 MO BIPOLAR I MIXED UNSPECIFIED 01/01/2012 ARIAN US PSYD L 296.60 MO BIPOLAR I MIXED UNSPECIFIED 01/01/2012 ARIAN US PSYD L 296.60 MO BIPOLAR I MIXED UNSPECIFIED 01/01/2012 ARIAN US PSYD L 296.60 MO BIPOLAR I MIXED UNSPECIFIED 01/07/2012 356.9 NEUROPATHY 01/07/2012 593.9 RENAL INSUFFICIENCY 01/07/2012 356.9 NEUROPATHY 01/07/2012 593.9 RENAL INSUFFICIENCY 01/07/2012 356.9 NEUROPATHY 01/07/2012 593.9 RENAL INSUFFICIENCY 01/07/2012 LATONYA TAO APRNA S 356.9 NEUROPATHY 01/07/2012 BEVERLY TAO APRN S 593.9 RENAL INSUFFICIENCY 01/07/2012 ARIAN US PSYD L 356.9 NEUROPATHY 01/07/2012 ARIAN US PSYD L 593.9 RENAL INSUFFICIENCY 01/07/2012 ARIAN US PSYD L 356.9 NEUROPATHY 01/07/2012 ARIAN US PSYD L 593.9 RENAL INSUFFICIENCY 01/07/2012 356.9 NEUROPATHY 01/07/2012 593.9 RENAL INSUFFICIENCY 01/07/2012 ARIAN US PSYD L 356.9 NEUROPATHY 01/07/2012 ARIAN US PSYD L 593.9 RENAL INSUFFICIENCY 01/07/2012 356.9 NEUROPATHY 01/07/2012 593.9 RENAL INSUFFICIENCY 01/07/2012 356.9 NEUROPATHY 01/07/2012 593.9 RENAL INSUFFICIENCY 01/07/2012 356.9 NEUROPATHY 01/07/2012 593.9 RENAL INSUFFICIENCY 01/07/2012 356.9 NEUROPATHY 01/07/2012 593.9 RENAL INSUFFICIENCY 01/07/2012 356.9 NEUROPATHY 01/07/2012 593.9 RENAL INSUFFICIENCY 01/07/2012 356.9 NEUROPATHY 01/07/2012 593.9 RENAL INSUFFICIENCY 01/07/2012 356.9 NEUROPATHY 01/07/2012 593.9 RENAL INSUFFICIENCY 01/07/2012 356.9 NEUROPATHY 01/07/2012 593.9 RENAL INSUFFICIENCY 01/07/2012 356.9 NEUROPATHY 01/07/2012 593.9 RENAL INSUFFICIENCY 01/07/2012 356.9 NEUROPATHY 01/07/2012 593.9 RENAL INSUFFICIENCY 01/07/2012 356.9 NEUROPATHY 01/07/2012 593.9 RENAL INSUFFICIENCY 01/07/2012 356.9 NEUROPATHY 01/07/2012 593.9 RENAL INSUFFICIENCY 01/07/2012 356.9 NEUROPATHY 01/07/2012 593.9 RENAL INSUFFICIENCY 01/07/2012 356.9 NEUROPATHY 01/07/2012 593.9 RENAL INSUFFICIENCY 01/07/2012 ARIAN US PSYD ANN L 356.9 NEUROPATHY 01/07/2012 ARIAN US PSYD ANN L 593.9 RENAL INSUFFICIENCY 01/07/2012 ARIAN US PSYD L 356.9 NEUROPATHY 01/07/2012 ARIAN US PSYD ANN L 593.9 RENAL INSUFFICIENCY 01/07/2012 WILLARD DO, LUCIANO K 356.9 NEUROPATHY 01/07/2012 WILLARD DO, LUCIANO K 593.9 RENAL INSUFFICIENCY 01/07/2012 JERMAINE FERRER APRN D 356.9 NEUROPATHY 01/07/2012 JERMAINE FERRER APRN D 593.9 RENAL INSUFFICIENCY 01/07/2012 ARIAN US PSYD L 356.9 NEUROPATHY 01/07/2012 ARIAN US PSYD L 593.9 RENAL INSUFFICIENCY 01/07/2012 ROXANNA OCONNOR CATALINA A 356.9 NEUROPATHY 01/07/2012 ROXANNA OCONNOR, CATALINA A 593.9 RENAL INSUFFICIENCY 01/07/2012 CLAUDE TAO APRNNDA S 356.9 NEUROPATHY 01/07/2012 AISLINN OCONNOR BEVERLY S 593.9 RENAL INSUFFICIENCY 01/07/2012 JERMAINE FERRER APRN D 356.9 NEUROPATHY 01/07/2012 JERMAINE FERRER APRN D 593.9 RENAL INSUFFICIENCY 01/07/2012 ARIAN US PSYD L 356.9 NEUROPATHY 01/07/2012 ARIAN US PSYD ANN L 593.9 RENAL INSUFFICIENCY 01/07/2012 HARLEEN LOU APRN T 356.9 NEUROPATHY 01/07/2012 HARLEEN LOU APRN T 593.9 RENAL INSUFFICIENCY 01/07/2012 HARLEEN LOU APRN T 356.9 NEUROPATHY 01/07/2012 HARLEEN LOU APRN 593.9 RENAL INSUFFICIENCY 01/07/2012 ARIAN US PSYD ANN L 356.9 NEUROPATHY 01/07/2012 ARIAN US PSYD ANN L 593.9 RENAL INSUFFICIENCY 01/07/2012 ARIAN US PSYD ANN L 356.9 NEUROPATHY 01/07/2012 ARIAN US PSYD ANN L 593.9 RENAL INSUFFICIENCY 01/07/2012 LOUISE COBOS MD 356.9 NEUROPATHY 01/07/2012 LOUISE COBOS MD 593.9 RENAL INSUFFICIENCY 01/07/2012 JERMAINE FERRER APRN 356.9 NEUROPATHY 01/07/2012 JERMAINE FERRER APRN 593.9 RENAL INSUFFICIENCY 01/07/2012 ARIAN US PSYD ANN L 356.9 NEUROPATHY 01/07/2012 ARIAN US PSYD ANN L 593.9 RENAL INSUFFICIENCY 01/07/2012 ARIAN US PSYD ANN L 356.9 NEUROPATHY 01/07/2012 ARIAN US PSYD ANN L 593.9 RENAL INSUFFICIENCY 01/07/2012 ARIAN US PSYD ANN L 356.9 NEUROPATHY 01/07/2012 ARIAN US PSYD ANN L 593.9 RENAL INSUFFICIENCY 01/07/2012 ARIAN US PSYD ANN L 356.9 NEUROPATHY 01/07/2012 ARIAN US PSYD ANN L 593.9 RENAL INSUFFICIENCY 01/07/2012 AISLINN OCONNOR BEVERLY S 356.9 NEUROPATHY 01/07/2012 AISLINN OCONNOR, BEVERLY S 593.9 RENAL INSUFFICIENCY 01/07/2012 ARIAN US PSYD ANN L 356.9 NEUROPATHY 01/07/2012 ARIAN US PSYD ANN L 593.9 RENAL INSUFFICIENCY 01/07/2012 WILLARD DO, LUCIANO K 356.9 NEUROPATHY 01/07/2012 WILLARD DO, LUCIANO K 593.9 RENAL INSUFFICIENCY 01/07/2012 LOUISE COBOS MD 356.9 NEUROPATHY 01/07/2012 LOUISE COBOS MD 593.9 RENAL INSUFFICIENCY 01/07/2012 ARIAN US PSYD ANN L 356.9 NEUROPATHY 01/07/2012 ARIAN US PSYD ANN L 593.9 RENAL INSUFFICIENCY 01/07/2012 AISLINN OCONNOR, BEVERLY S 356.9 NEUROPATHY 01/07/2012 AISLINN OCONNOR, BEVERLY S 593.9 RENAL INSUFFICIENCY 01/07/2012 ARIAN US PSYD ANN L 356.9 NEUROPATHY 01/07/2012 ARIAN US PSYD ANN L 593.9 RENAL INSUFFICIENCY 01/07/2012 ARIAN US PSYD ANN L 356.9 NEUROPATHY 01/07/2012 ARIAN US PSYD ANN L 593.9 RENAL INSUFFICIENCY 01/07/2012 AISLINN OCONNOR, BEVERLY S 356.9 NEUROPATHY 01/07/2012 AISLINNCHICHI OCONNOR, BEVERLY S 593.9 RENAL INSUFFICIENCY 01/07/2012 ARIAN US PSYD ANN L 356.9 NEUROPATHY 01/07/2012 ARIAN US PSYD ANN L 593.9 RENAL INSUFFICIENCY 01/07/2012 NELSON TAXI PROPRIETOR, JAVAD 356.9 NEUROPATHY 01/07/2012 NELSON TAXI PROPRIETOR, JAVAD 593.9 RENAL INSUFFICIENCY 01/07/2012 AISLINN OCONNOR, BEVERLY S 356.9 NEUROPATHY 01/07/2012 AISLINNCHICHI RUIZN, BEVERLY S 593.9 RENAL INSUFFICIENCY 01/07/2012 NELSON TAXI PROPRIETOR, JAVAD 356.9 NEUROPATHY 01/07/2012 NELSON TAXI PROPRIETOR, JAVAD 593.9 RENAL INSUFFICIENCY 01/07/2012 ARIAN US PSYD ANN L 356.9 NEUROPATHY 01/07/2012 ARIAN US PSYD ANN L 593.9 RENAL INSUFFICIENCY 01/07/2012 ARIAN US PSYD ANN L 356.9 NEUROPATHY 01/07/2012 ABEBA GARZA DAISHA L 593.9 RENAL INSUFFICIENCY 01/07/2012 ARIAN US PSYD ANN L 356.9 NEUROPATHY 01/07/2012 ARIAN US PSYD ANN L 593.9 RENAL INSUFFICIENCY 01/07/2012 AISLINN OCONNOR, BEVERLY S 356.9 NEUROPATHY 01/07/2012 AISLINN OCONNOR, BEVERLY S 593.9 RENAL INSUFFICIENCY 01/07/2012 ROXANNACARLOS EDUARDO OCONNOR CATALINA A 356.9 NEUROPATHY 01/07/2012 ROXANNA RUIZN, CATALINA A 593.9 RENAL INSUFFICIENCY 01/07/2012 NELSON MADAI OCONNORETTE 356.9 NEUROPATHY 01/07/2012 NELSON MADAI OOCNNORETTE 593.9 RENAL INSUFFICIENCY 01/07/2012 ARIAN US PSYD ANN L 356.9 NEUROPATHY 01/07/2012 ARIAN US PSYD ANN L 593.9 RENAL INSUFFICIENCY 01/07/2012 ARIAN US PSYD ANN L 356.9 NEUROPATHY 01/07/2012 ARIAN US PSYD ANN L 593.9 RENAL INSUFFICIENCY 01/07/2012 AISLINNCHICHI OCONNOR BEVERLY S 356.9 NEUROPATHY 01/07/2012 AISLINN OCONNOR BEVERLY S 593.9 RENAL INSUFFICIENCY 01/07/2012 ARIAN US PSYD ANN L 356.9 NEUROPATHY 01/07/2012 ARIAN US PSYD ANN L 593.9 RENAL INSUFFICIENCY 01/07/2012 ARIAN US PSYD ANN L 356.9 NEUROPATHY 01/07/2012 ARIAN US PSYD ANN L 593.9 RENAL INSUFFICIENCY 01/07/2012 ROXANNA APRN, CATALINA A 356.9 NEUROPATHY 01/07/2012 ROXANNA ANASTASIA, CATALINA A 593.9 RENAL INSUFFICIENCY 01/07/2012 ARIAN US PSYD ANN L 356.9 NEUROPATHY 01/07/2012 ARIAN US PSYD ANN L 593.9 RENAL INSUFFICIENCY 01/07/2012 ARIAN US PSYD ANN L 356.9 NEUROPATHY 01/07/2012 ARIAN US PSYD ANN L 593.9 RENAL INSUFFICIENCY 01/07/2012 ARIAN US PSYD ANN L 356.9 NEUROPATHY 01/07/2012 ARIAN US PSYD ANN L 593.9 RENAL INSUFFICIENCY 01/25/2012 Ot 724.2 LUMBAGO 01/25/2012 Ot 724.3 SCIATICA 01/29/2012 720.2 SACROILIITIS NOT ELSEWHERE CLASSIFIED 01/29/2012 724.3 SCIATICA 01/29/2012 847.9 SPRAIN OF UNSPECIFIED SITE OF BACK 01/29/2012 720.2 SACROILIITIS NOT ELSEWHERE CLASSIFIED 01/29/2012 724.3 SCIATICA 01/29/2012 847.9 SPRAIN OF UNSPECIFIED SITE OF BACK 01/29/2012 720.2 SACROILIITIS NOT ELSEWHERE CLASSIFIED 01/29/2012 724.3 SCIATICA 01/29/2012 847.9 SPRAIN OF UNSPECIFIED SITE OF BACK 01/29/2012 AISLINN TAXI PROPRIETOR, BEVERLY S 720.2 SACROILIITIS NOT ELSEWHERE CLASSIFIED 01/29/2012 AISLINN TAXI PROPRIETOR, BEVERLY S 724.3 SCIATICA 01/29/2012 AISLINN TAXI PROPRIETOR, BEVERLY S 847.9 SPRAIN OF UNSPECIFIED SITE OF BACK 01/29/2012 ABEBA GARZA DAISHA L 720.2 SACROILIITIS NOT ELSEWHERE CLASSIFIED 01/29/2012 ABEBA GARZA DAISHA L 724.3 SCIATICA 01/29/2012 ABEBA GARZA DAISHA L 847.9 SPRAIN OF UNSPECIFIED SITE OF BACK 01/29/2012 ABEBA GARZA DAISHA L 720.2 SACROILIITIS NOT ELSEWHERE CLASSIFIED 01/29/2012 ABEBA GARZA DAISHA L 724.3 SCIATICA 01/29/2012 ABEBA GARZA DAISHA L 847.9 SPRAIN OF UNSPECIFIED SITE OF BACK 01/29/2012 720.2 SACROILIITIS NOT ELSEWHERE CLASSIFIED 01/29/2012 724.3 SCIATICA 01/29/2012 847.9 SPRAIN OF UNSPECIFIED SITE OF BACK 01/29/2012 ARIAN US PSYD ANN L 720.2 SACROILIITIS NOT ELSEWHERE CLASSIFIED 01/29/2012 ABEBA GARZA DAISHA L 724.3 SCIATICA 01/29/2012 ABEBA GARZA DAISHA L 847.9 SPRAIN OF UNSPECIFIED SITE OF BACK 01/29/2012 720.2 SACROILIITIS NOT ELSEWHERE CLASSIFIED 01/29/2012 724.3 SCIATICA 01/29/2012 847.9 SPRAIN OF UNSPECIFIED SITE OF BACK 01/29/2012 720.2 SACROILIITIS NOT ELSEWHERE CLASSIFIED 01/29/2012 724.3 SCIATICA 01/29/2012 847.9 SPRAIN OF UNSPECIFIED SITE OF BACK 01/29/2012 720.2 SACROILIITIS NOT ELSEWHERE CLASSIFIED 01/29/2012 724.3 SCIATICA 01/29/2012 847.9 SPRAIN OF UNSPECIFIED SITE OF BACK 01/29/2012 720.2 SACROILIITIS NOT ELSEWHERE CLASSIFIED 01/29/2012 724.3 SCIATICA 01/29/2012 847.9 SPRAIN OF UNSPECIFIED SITE OF BACK 01/29/2012 720.2 SACROILIITIS NOT ELSEWHERE CLASSIFIED 01/29/2012 724.3 SCIATICA 01/29/2012 847.9 SPRAIN OF UNSPECIFIED SITE OF BACK 01/29/2012 720.2 SACROILIITIS NOT ELSEWHERE CLASSIFIED 01/29/2012 724.3 SCIATICA 01/29/2012 847.9 SPRAIN OF UNSPECIFIED SITE OF BACK 01/29/2012 720.2 SACROILIITIS NOT ELSEWHERE CLASSIFIED 01/29/2012 724.3 SCIATICA 01/29/2012 847.9 SPRAIN OF UNSPECIFIED SITE OF BACK 01/29/2012 720.2 SACROILIITIS NOT ELSEWHERE CLASSIFIED 01/29/2012 724.3 SCIATICA 01/29/2012 847.9 SPRAIN OF UNSPECIFIED SITE OF BACK 01/29/2012 720.2 SACROILIITIS NOT ELSEWHERE CLASSIFIED 01/29/2012 724.3 SCIATICA 01/29/2012 847.9 SPRAIN OF UNSPECIFIED SITE OF BACK 01/29/2012 720.2 SACROILIITIS NOT ELSEWHERE CLASSIFIED 01/29/2012 724.3 SCIATICA 01/29/2012 847.9 SPRAIN OF UNSPECIFIED SITE OF BACK 01/29/2012 720.2 SACROILIITIS NOT ELSEWHERE CLASSIFIED 01/29/2012 724.3 SCIATICA 01/29/2012 847.9 SPRAIN OF UNSPECIFIED SITE OF BACK 01/29/2012 720.2 SACROILIITIS NOT ELSEWHERE CLASSIFIED 01/29/2012 724.3 SCIATICA 01/29/2012 847.9 SPRAIN OF UNSPECIFIED SITE OF BACK 01/29/2012 720.2 SACROILIITIS NOT ELSEWHERE CLASSIFIED 01/29/2012 724.3 SCIATICA 01/29/2012 847.9 SPRAIN OF UNSPECIFIED SITE OF BACK 01/29/2012 720.2 SACROILIITIS NOT ELSEWHERE CLASSIFIED 01/29/2012 724.3 SCIATICA 01/29/2012 847.9 SPRAIN OF UNSPECIFIED SITE OF BACK 01/29/2012 ARIAN US PSYD ANN L 720.2 SACROILIITIS NOT ELSEWHERE CLASSIFIED 01/29/2012 ARIAN US PSYD ANN L 724.3 SCIATICA 01/29/2012 ARIAN US PSYD ANN L 847.9 SPRAIN OF UNSPECIFIED SITE OF BACK 01/29/2012 ARIAN US PSYD ANN L 720.2 SACROILIITIS NOT ELSEWHERE CLASSIFIED 01/29/2012 ARIAN US PSYD ANN L 724.3 SCIATICA 01/29/2012 ARIAN US PSYD ANN L 847.9 SPRAIN OF UNSPECIFIED SITE OF BACK 01/29/2012 WILLARD DO, LUCIANO K 720.2 SACROILIITIS NOT ELSEWHERE CLASSIFIED 01/29/2012 WILLARD DO, LUCIANO K 724.3 SCIATICA 01/29/2012 WILLARD DO, LUCIANO K 847.9 SPRAIN OF UNSPECIFIED SITE OF BACK 01/29/2012 JERMAINE FERRER APRN D 720.2 SACROILIITIS NOT ELSEWHERE CLASSIFIED 01/29/2012 JERMAINE FERRER APRN D 724.3 SCIATICA 01/29/2012 JERMAINE FERRER APRN D 847.9 SPRAIN OF UNSPECIFIED SITE OF BACK 01/29/2012 ARIAN US PSYD ANN L 720.2 SACROILIITIS NOT ELSEWHERE CLASSIFIED 01/29/2012 ARIAN US PSYD ANN L 724.3 SCIATICA 01/29/2012 ARIAN US PSYD ANN L 847.9 SPRAIN OF UNSPECIFIED SITE OF BACK 01/29/2012 ROXANNA OCONNOR CATALINA A 720.2 SACROILIITIS NOT ELSEWHERE CLASSIFIED 01/29/2012 ROXANNA TAXI PROPRIETOR, CATALINA A 724.3 SCIATICA 01/29/2012 ROXANNA TAXI PROPRIETOR, CATALINA A 847.9 SPRAIN OF UNSPECIFIED SITE OF BACK 01/29/2012 AISLINN TAXI PROPRIETOR, BEVERLY S 720.2 SACROILIITIS NOT ELSEWHERE CLASSIFIED 01/29/2012 AISLINN TAXI PROPRIETOR, BEVERLY S 724.3 SCIATICA 01/29/2012 AISLINN OCONNOR BEVERLY S 847.9 SPRAIN OF UNSPECIFIED SITE OF BACK 01/29/2012 JERMAINE FERRER APRN 720.2 SACROILIITIS NOT ELSEWHERE CLASSIFIED 01/29/2012 JERMAINE FERRER APRN 724.3 SCIATICA 01/29/2012 JERMAINE FERRER APRN 847.9 SPRAIN OF UNSPECIFIED SITE OF BACK 01/29/2012 ABEBA GARZA DAISHA L 720.2 SACROILIITIS NOT ELSEWHERE CLASSIFIED 01/29/2012 ABEBA GARZA DAISHA L 724.3 SCIATICA 01/29/2012 ABEBA GARZA, DAISHA L 847.9 SPRAIN OF UNSPECIFIED SITE OF BACK 01/29/2012 HARLEEN LOU APRN 720.2 SACROILIITIS NOT ELSEWHERE CLASSIFIED 01/29/2012 HARLEEN LOU APRN 724.3 SCIATICA 01/29/2012 HARLEEN LOU APRN 847.9 SPRAIN OF UNSPECIFIED SITE OF BACK 01/29/2012 HARLEEN LOU APRN 720.2 SACROILIITIS NOT ELSEWHERE CLASSIFIED 01/29/2012 HARLEEN LOU APRN 724.3 SCIATICA 01/29/2012 HARLEEN LOU APRN T 847.9 SPRAIN OF UNSPECIFIED SITE OF BACK 01/29/2012 ABEBA GARZA DAISHA L 720.2 SACROILIITIS NOT ELSEWHERE CLASSIFIED 01/29/2012 ABEBA GARZA DAISHA L 724.3 SCIATICA 01/29/2012 ABEBA GARZA, DAISHA L 847.9 SPRAIN OF UNSPECIFIED SITE OF BACK 01/29/2012 ABEBA GARZA DAISHA L 720.2 SACROILIITIS NOT ELSEWHERE CLASSIFIED 01/29/2012 ABEBA GARZA DAISHA L 724.3 SCIATICA 01/29/2012 ABEBA GARZA, DAISHA L 847.9 SPRAIN OF UNSPECIFIED SITE OF BACK 01/29/2012 LOUISE COBOS MD 720.2 SACROILIITIS NOT ELSEWHERE CLASSIFIED 01/29/2012 LOUISE COBOS MD 724.3 SCIATICA 01/29/2012 LOUISE COBOS MD 847.9 SPRAIN OF UNSPECIFIED SITE OF BACK 01/29/2012 JERMAINE FERRER APRN 720.2 SACROILIITIS NOT ELSEWHERE CLASSIFIED 01/29/2012 JERMAINE FERRER APRN 724.3 SCIATICA 01/29/2012 JERMAINE FERRER APRN 847.9 SPRAIN OF UNSPECIFIED SITE OF BACK 01/29/2012 ARIAN US PSYD ANN L 720.2 SACROILIITIS NOT ELSEWHERE CLASSIFIED 01/29/2012 ARIAN US PSYD ANN L 724.3 SCIATICA 01/29/2012 ARIAN US PSYD ANN L 847.9 SPRAIN OF UNSPECIFIED SITE OF BACK 01/29/2012 ARIAN US PSYD ANN L 720.2 SACROILIITIS NOT ELSEWHERE CLASSIFIED 01/29/2012 ARIAN US PSYD ANN L 724.3 SCIATICA 01/29/2012 ARIAN US PSYD ANN L 847.9 SPRAIN OF UNSPECIFIED SITE OF BACK 01/29/2012 ARIAN US PSYD ANN L 720.2 SACROILIITIS NOT ELSEWHERE CLASSIFIED 01/29/2012 ARIAN US PSYD ANN L 724.3 SCIATICA 01/29/2012 ARIAN US PSYD ANN L 847.9 SPRAIN OF UNSPECIFIED SITE OF BACK 01/29/2012 ARIAN US PSYD ANN L 720.2 SACROILIITIS NOT ELSEWHERE CLASSIFIED 01/29/2012 ARIAN US PSYD ANN L 724.3 SCIATICA 01/29/2012 ARIAN US PSYD ANN L 847.9 SPRAIN OF UNSPECIFIED SITE OF BACK 01/29/2012 AISLINN OCONNOR BEVERLY S 720.2 SACROILIITIS NOT ELSEWHERE CLASSIFIED 01/29/2012 AISLINN OCONNOR, BEVERLY S 724.3 SCIATICA 01/29/2012 AISLINNCHICHI OCONNOR, BEVERLY S 847.9 SPRAIN OF UNSPECIFIED SITE OF BACK 01/29/2012 ARIAN US PSYD ANN L 720.2 SACROILIITIS NOT ELSEWHERE CLASSIFIED 01/29/2012 ARIAN US PSYD ANN L 724.3 SCIATICA 01/29/2012 ARIAN US PSYD ANN L 847.9 SPRAIN OF UNSPECIFIED SITE OF BACK 01/29/2012 WILLARD DO, LUCIANO K 720.2 SACROILIITIS NOT ELSEWHERE CLASSIFIED 01/29/2012 WILLARD DO, LUCIANO K 724.3 SCIATICA 01/29/2012 WILLARD DO, LUCIANO K 847.9 SPRAIN OF UNSPECIFIED SITE OF BACK 01/29/2012 LOUISE COBOS MD 720.2 SACROILIITIS NOT ELSEWHERE CLASSIFIED 01/29/2012 LOUISE COBOS MD 724.3 SCIATICA 01/29/2012 LOUISE COBOS MD 847.9 SPRAIN OF UNSPECIFIED SITE OF BACK 01/29/2012 ABEBA GARZA DAISHA L 720.2 SACROILIITIS NOT ELSEWHERE CLASSIFIED 01/29/2012 ABEBA GARZA DAISHA L 724.3 SCIATICA 01/29/2012 ABEBA GARZA DAISHA L 847.9 SPRAIN OF UNSPECIFIED SITE OF BACK 01/29/2012 AISLINN OCONNOR BEVERLY S 720.2 SACROILIITIS NOT ELSEWHERE CLASSIFIED 01/29/2012 AISLINN OCONNOR BEVERLY S 724.3 SCIATICA 01/29/2012 AISLINN OCONNOR BEVERLY S 847.9 SPRAIN OF UNSPECIFIED SITE OF BACK 01/29/2012 ABEBA GARZA DAISHA L 720.2 SACROILIITIS NOT ELSEWHERE CLASSIFIED 01/29/2012 ABEBA GARZA DAISHA L 724.3 SCIATICA 01/29/2012 ABEBA GARZA DAISHA L 847.9 SPRAIN OF UNSPECIFIED SITE OF BACK 01/29/2012 ABEBA GARZA DAISHA L 720.2 SACROILIITIS NOT ELSEWHERE CLASSIFIED 01/29/2012 ABEBA GARZA DAISHA L 724.3 SCIATICA 01/29/2012 ABEBA GARZA DAISHA L 847.9 SPRAIN OF UNSPECIFIED SITE OF BACK 01/29/2012 AISLINN OCONNOR BEVERLY S 720.2 SACROILIITIS NOT ELSEWHERE CLASSIFIED 01/29/2012 AISLINN OCONNOR BEVERLY S 724.3 SCIATICA 01/29/2012 AISLINN OCONNOR, BEVERLY S 847.9 SPRAIN OF UNSPECIFIED SITE OF BACK 01/29/2012 ABEBA GARZA DAISHA L 720.2 SACROILIITIS NOT ELSEWHERE CLASSIFIED 01/29/2012 ARIAN US PSYD ANN L 724.3 SCIATICA 01/29/2012 ARIAN US PSYD ANN L 847.9 SPRAIN OF UNSPECIFIED SITE OF BACK 01/29/2012 NELSON TAXI PROPRIETOR, JAVAD 720.2 SACROILIITIS NOT ELSEWHERE CLASSIFIED 01/29/2012 NELSON TAXI PROPRIETOR, JAVAD 724.3 SCIATICA 01/29/2012 NELSON TAXI PROPRIETOR JAVAD 847.9 SPRAIN OF UNSPECIFIED SITE OF BACK 01/29/2012 AISLINN TAXI PROPRIETOR, BEVERLY S 720.2 SACROILIITIS NOT ELSEWHERE CLASSIFIED 01/29/2012 AISLINN TAXI PROPRIETOR, BEVERLY S 724.3 SCIATICA 01/29/2012 AISLINN TAXI PROPRIETOR, BEVERLY S 847.9 SPRAIN OF UNSPECIFIED SITE OF BACK 01/29/2012 NELSON TAXI PROPRIETOR, JAVAD 720.2 SACROILIITIS NOT ELSEWHERE CLASSIFIED 01/29/2012 NELSON OCONNOR JAVAD 724.3 SCIATICA 01/29/2012 NELSON TAXI PROPRIETOR, JAVAD 847.9 SPRAIN OF UNSPECIFIED SITE OF BACK 01/29/2012 ARIAN US PSYD ANN L 720.2 SACROILIITIS NOT ELSEWHERE CLASSIFIED 01/29/2012 ARIAN US PSYD ANN L 724.3 SCIATICA 01/29/2012 ARIAN US PSYD ANN L 847.9 SPRAIN OF UNSPECIFIED SITE OF BACK 01/29/2012 ARIAN US PSYD ANN L 720.2 SACROILIITIS NOT ELSEWHERE CLASSIFIED 01/29/2012 ARIAN US PSYD ANN L 724.3 SCIATICA 01/29/2012 ARIAN US PSYD ANN L 847.9 SPRAIN OF UNSPECIFIED SITE OF BACK 01/29/2012 ARIAN US PSYD ANN L 720.2 SACROILIITIS NOT ELSEWHERE CLASSIFIED 01/29/2012 ARIAN US PSYD ANN L 724.3 SCIATICA 01/29/2012 ARIAN US PSYD ANN L 847.9 SPRAIN OF UNSPECIFIED SITE OF BACK 01/29/2012 AISLINN TAXI PROPRIETOR, BEVERLY S 720.2 SACROILIITIS NOT ELSEWHERE CLASSIFIED 01/29/2012 AISLINN TAXI PROPRIETOR, BEVERLY S 724.3 SCIATICA 01/29/2012 AISLINN TAXI PROPRIETOR, BEVERLY S 847.9 SPRAIN OF UNSPECIFIED SITE OF BACK 01/29/2012 ROXANNA TAXI PROPRIETOR, CATALINA A 720.2 SACROILIITIS NOT ELSEWHERE CLASSIFIED 01/29/2012 ROXANNA TAXI PROPRIETOR, CATALINA A 724.3 SCIATICA 01/29/2012 ROXANNA TAXI PROPRIETOR, CATALINA A 847.9 SPRAIN OF UNSPECIFIED SITE OF BACK 01/29/2012 NELSON TAXI PROPRIETOR JAVAD 720.2 SACROILIITIS NOT ELSEWHERE CLASSIFIED 01/29/2012 NELSON TAXI PROPRIETOR, JAVAD 724.3 SCIATICA 01/29/2012 NELSON TAXI PROPRIETOR, JAVAD 847.9 SPRAIN OF UNSPECIFIED SITE OF BACK 01/29/2012 ARIAN US PSYD ANN L 720.2 SACROILIITIS NOT ELSEWHERE CLASSIFIED 01/29/2012 ARIAN US PSYD ANN L 724.3 SCIATICA 01/29/2012 ARIAN US PSYD ANN L 847.9 SPRAIN OF UNSPECIFIED SITE OF BACK 01/29/2012 ARIAN US PSYD ANN L 720.2 SACROILIITIS NOT ELSEWHERE CLASSIFIED 01/29/2012 ARIAN US PSYD ANN L 724.3 SCIATICA 01/29/2012 ARIAN US PSYD ANN L 847.9 SPRAIN OF UNSPECIFIED SITE OF BACK 01/29/2012 AISLINN TAXI PROPRIETOR, BEVERLY S 720.2 SACROILIITIS NOT ELSEWHERE CLASSIFIED 01/29/2012 AISLINN TAXI PROPRIETOR, BEVERLY S 724.3 SCIATICA 01/29/2012 AISLINN TAXI PROPRIETOR, BEVERLY S 847.9 SPRAIN OF UNSPECIFIED SITE OF BACK 01/29/2012 ARIAN US PSYD ANN L 720.2 SACROILIITIS NOT ELSEWHERE CLASSIFIED 01/29/2012 ARIAN US PSYD ANN L 724.3 SCIATICA 01/29/2012 ARIAN US PSYD ANN L 847.9 SPRAIN OF UNSPECIFIED SITE OF BACK 01/29/2012 ARIAN US PSYD ANN L 720.2 SACROILIITIS NOT ELSEWHERE CLASSIFIED 01/29/2012 ARIAN US PSYD ANN L 724.3 SCIATICA 01/29/2012 ARIAN US PSYD ANN L 847.9 SPRAIN OF UNSPECIFIED SITE OF BACK 01/29/2012 ROXANNA OCONNOR, CATALINA A 720.2 SACROILIITIS NOT ELSEWHERE CLASSIFIED 01/29/2012 ROXANNA RUIZN, CATALINA A 724.3 SCIATICA 01/29/2012 ROXANNA RUIZN, CATALINA A 847.9 SPRAIN OF UNSPECIFIED SITE OF BACK 01/29/2012 ARIAN US PSYD ANN L 720.2 SACROILIITIS NOT ELSEWHERE CLASSIFIED 01/29/2012 ARIAN US PSYD ANN L 724.3 SCIATICA 01/29/2012 ARIAN US PSYD ANN L 847.9 SPRAIN OF UNSPECIFIED SITE OF BACK 01/29/2012 ARIAN US PSYD ANN L 720.2 SACROILIITIS NOT ELSEWHERE CLASSIFIED 01/29/2012 ARIAN US PSYD ANN L 724.3 SCIATICA 01/29/2012 ARIAN US PSYD ANN L 847.9 SPRAIN OF UNSPECIFIED SITE OF BACK 01/29/2012 ARIAN US PSYD ANN L 720.2 SACROILIITIS NOT ELSEWHERE CLASSIFIED 01/29/2012 ARIAN US PSYD ANN L 724.3 SCIATICA 01/29/2012 ARIAN US PSYD ANN L 847.9 SPRAIN OF UNSPECIFIED SITE OF BACK 04/06/2012 BEVERLY TAO APRN 611.71 MASTODYNIA 04/06/2012 ARIAN US PSYD ANN L 611.71 MASTODYNIA 04/06/2012 ARIAN US PSYD ANN L 611.71 MASTODYNIA 04/06/2012 611.71 MASTODYNIA 04/06/2012 ARIAN US PSYD ANN L 611.71 MASTODYNIA 04/06/2012 611.71 MASTODYNIA 04/06/2012 611.71 MASTODYNIA 04/06/2012 611.71 MASTODYNIA 04/06/2012 611.71 MASTODYNIA 04/06/2012 611.71 MASTODYNIA 04/06/2012 611.71 MASTODYNIA 04/06/2012 611.71 MASTODYNIA 04/06/2012 611.71 MASTODYNIA 04/06/2012 611.71 MASTODYNIA 04/06/2012 611.71 MASTODYNIA 04/06/2012 611.71 MASTODYNIA 04/06/2012 611.71 MASTODYNIA 04/06/2012 611.71 MASTODYNIA 04/06/2012 611.71 MASTODYNIA 04/06/2012 ARIAN US PSYD 611.71 MASTODYNIA 04/06/2012 ARIAN US PSYD 611.71 MASTODYNIA 04/06/2012 LUCIANO WILLARD DO 611.71 MASTODYNIA 04/06/2012 JERMAINE FERRER APRN 611.71 MASTODYNIA 04/06/2012 ARIAN US PSYD 611.71 MASTODYNIA 04/06/2012 CATALINA MCKNIGHT APRN 611.71 MASTODYNIA 04/06/2012 BEVERLY TAO APRN 611.71 MASTODYNIA 04/06/2012 JERMAINE FERRER APRN 611.71 MASTODYNIA 04/06/2012 ARIAN US PSYD 611.71 MASTODYNIA 04/06/2012 HARLEEN LOU APRN 611.71 MASTODYNIA 04/06/2012 HARLEEN LOU APRN 611.71 MASTODYNIA 04/06/2012 ARIAN US PSYD 611.71 MASTODYNIA 04/06/2012 ARIAN US PSYD 611.71 MASTODYNIA 04/06/2012 LOUISE COBOS MD 611.71 MASTODYNIA 04/06/2012 JERMAINE FERRER APRN 611.71 MASTODYNIA 04/06/2012 ARIAN US PSYD 611.71 MASTODYNIA 04/06/2012 ARIAN US PSYD 611.71 MASTODYNIA 04/06/2012 ARIAN US PSYD 611.71 MASTODYNIA 04/06/2012 BEVERLY TAO APRN S 611.71 MASTODYNIA 04/06/2012 ARIAN US PSYD 611.71 MASTODYNIA 04/06/2012 LUCIANO WILLARD DO 611.71 MASTODYNIA 04/06/2012 PAPITO GAYLE, LOUISE 611.71 MASTODYNIA 04/06/2012 ARIAN US PSYD L 611.71 MASTODYNIA 04/06/2012 BEVERLY TAO APRN S 611.71 MASTODYNIA 04/06/2012 ARIAN US PSYD L 611.71 MASTODYNIA 04/06/2012 ARIAN US PSYD L 611.71 MASTODYNIA 04/06/2012 BEVERLY TAO APRN S 611.71 MASTODYNIA 04/06/2012 ARIAN US PSYD L 611.71 MASTODYNIA 04/06/2012 JAVAD DAMON APRN 611.71 MASTODYNIA 04/06/2012 BEVERLY TAO APRN S 611.71 MASTODYNIA 04/06/2012 JAVAD DAMON APRN 611.71 MASTODYNIA 04/06/2012 ARIAN US PSYD L 611.71 MASTODYNIA 04/06/2012 ARIAN US PSYD L 611.71 MASTODYNIA 04/06/2012 ARIAN US PSYD L 611.71 MASTODYNIA 04/06/2012 BEVERLY TAO APRN S 611.71 MASTODYNIA 04/06/2012 CATALINA MCKNIGHT APRN A 611.71 MASTODYNIA 04/06/2012 JAVAD DAMON APRN 611.71 MASTODYNIA 04/06/2012 ARIAN US PSYD L 611.71 MASTODYNIA 04/06/2012 ARIAN US PSYD L 611.71 MASTODYNIA 04/06/2012 BEVERLY TAO APRN S 611.71 MASTODYNIA 04/06/2012 ARIAN US PSYD L 611.71 MASTODYNIA 04/06/2012 ARIAN US PSYD L 611.71 MASTODYNIA 04/06/2012 CATALINA MCKNIGHT APRN A 611.71 MASTODYNIA 04/06/2012 ARIAN US PSYD L 611.71 MASTODYNIA 04/06/2012 ARIAN US PSYD L 611.71 MASTODYNIA 04/06/2012 ARIAN US PSYD ANN L 611.71 MASTODYNIA 08/25/2012 791.0 PROTEINURIA 08/25/2012 791.0 PROTEINURIA 08/25/2012 791.0 PROTEINURIA 08/25/2012 791.0 PROTEINURIA 08/25/2012 791.0 PROTEINURIA 08/25/2012 791.0 PROTEINURIA 08/25/2012 791.0 PROTEINURIA 08/25/2012 791.0 PROTEINURIA 08/25/2012 ARIAN US PSYD L 791.0 PROTEINURIA 08/25/2012 ARIAN US PSYD ANN L 791.0 PROTEINURIA 08/25/2012 WILLARD DO, LUCIANO K 791.0 PROTEINURIA 08/25/2012 GARTON TAXI PROPRIETORJERMAINE Solitario D 791.0 PROTEINURIA 08/25/2012 ARIAN US PSYD L 791.0 PROTEINURIA 08/25/2012 ROXANNA TAXI PROPRIETOR, CATALINA A 791.0 PROTEINURIA 08/25/2012 AISLINN TAXI PROPRIETOR, BEVERLY S 791.0 PROTEINURIA 08/25/2012 GARSOURAV TAXI PROPRIETORJERMAINE Solitario 791.0 PROTEINURIA 08/25/2012 ARIAN US PSYD L 791.0 PROTEINURIA 08/25/2012 DASHA TAXI PROPRIETOR, HARLEEN T 791.0 PROTEINURIA 08/25/2012 DASHA TAXI PROPRIETOR, HARLEEN T 791.0 PROTEINURIA 08/25/2012 ARIAN US PSYD ANN L 791.0 PROTEINURIA 08/25/2012 ARIAN US PSYD L 791.0 PROTEINURIA 08/25/2012 LOUISE COBOS MD 791.0 PROTEINURIA 08/25/2012 JERMAINE FERRER APRN 791.0 PROTEINURIA 08/25/2012 ARIAN US PSYD L 791.0 PROTEINURIA 08/25/2012 ARIAN US PSYD L 791.0 PROTEINURIA 08/25/2012 ARIAN US PSYD ANN L 791.0 PROTEINURIA 08/25/2012 AISLINN TAXI PROPRIETOR, BEVERLY S 791.0 PROTEINURIA 08/25/2012 ARIAN US PSYD ANN L 791.0 PROTEINURIA 08/25/2012 WILLARD DO, LUCIANO K 791.0 PROTEINURIA 08/25/2012 HUERTER MD, LOUISE 791.0 PROTEINURIA 08/25/2012 ARIAN US PSYD ANN L 791.0 PROTEINURIA 08/25/2012 AISLINN TAXI PROPRIETOR, BEVERLY S 791.0 PROTEINURIA 08/25/2012 ARIAN US PSYD ANN L 791.0 PROTEINURIA 08/25/2012 ARIAN US PSYD ANN L 791.0 PROTEINURIA 08/25/2012 AISLINN TAXI PROPRIETOR, BEVERLY S 791.0 PROTEINURIA 08/25/2012 ARIAN US PSYD ANN L 791.0 PROTEINURIA 08/25/2012 NELSON TAXI PROPRIETOR, JAVAD 791.0 PROTEINURIA 08/25/2012 AISLINN TAXI PROPRIETOR, BEVERLY S 791.0 PROTEINURIA 08/25/2012 NELSON TAXI PROPRIETOR, JAVAD 791.0 PROTEINURIA 08/25/2012 ARIAN US PSYD ANN L 791.0 PROTEINURIA 08/25/2012 ARIAN US PSYD ANN L 791.0 PROTEINURIA 08/25/2012 ARIAN US PSYD ANN L 791.0 PROTEINURIA 08/25/2012 AISLINN TAXI PROPRIETOR, BEVERLY S 791.0 PROTEINURIA 08/25/2012 ROXANNA TAXI PROPRIETOR, CATALINA A 791.0 PROTEINURIA 08/25/2012 NELSON TAXI PROPRIETOR, JAVAD 791.0 PROTEINURIA 08/25/2012 ARIAN US PSYD ANN L 791.0 PROTEINURIA 08/25/2012 ARIAN US PSYD ANN L 791.0 PROTEINURIA 08/25/2012 AISLINN TAXI PROPRIETOR, BEVERLY S 791.0 PROTEINURIA 08/25/2012 ARIAN US PSYD ANN L 791.0 PROTEINURIA 08/25/2012 ARIAN US PSYD ANN L 791.0 PROTEINURIA 08/25/2012 ROXANNA TAXI PROPRIETOR, CATALINA A 791.0 PROTEINURIA 08/25/2012 ARIAN US PSYD ANN L 791.0 PROTEINURIA 08/25/2012 ARIAN US PSYD ANN L 791.0 PROTEINURIA 08/25/2012 ARIAN US PSYD ANN L 791.0 PROTEINURIA 09/15/2012 BERNY CASTRO MD Ot 250.60 DIAB W NEURO MANIFEST, TYPE II OR UNSPEC 09/15/2012 BERNY CASTRO MD Ot 357.2 NEUROPATHY IN DIABETES 09/15/2012 BERNY CASTRO MD Ot 599.0 URIN TRACT INFECTION NOS 09/15/2012 BERNY CASTRO MD Ot 729.5 PAIN IN LIMB 09/15/2012 BERNY CASTRO MD Ot V12.51 HX-VENOUS THROMBOSIS EMBOLISM 10/03/2012 626.4 IRREGULAR MENSTRUAL CYCLE 10/03/2012 626.4 IRREGULAR MENSTRUAL CYCLE 10/03/2012 626.4 IRREGULAR MENSTRUAL CYCLE 10/03/2012 626.4 IRREGULAR MENSTRUAL CYCLE 10/03/2012 626.4 IRREGULAR MENSTRUAL CYCLE 10/03/2012 ARIAN US PSYD L 626.4 IRREGULAR MENSTRUAL CYCLE 10/03/2012 ARIAN US PSYD L 626.4 IRREGULAR MENSTRUAL CYCLE 10/03/2012 LUCIANO WILLARD DO 626.4 IRREGULAR MENSTRUAL CYCLE 10/03/2012 JERMAINE FERRER APRN 626.4 IRREGULAR MENSTRUAL CYCLE 10/03/2012 ARIAN US PSYD 626.4 IRREGULAR MENSTRUAL CYCLE 10/03/2012 CATALINA MCKNIGHT APRN 626.4 IRREGULAR MENSTRUAL CYCLE 10/03/2012 BEVERLY TAO APRN 626.4 IRREGULAR MENSTRUAL CYCLE 10/03/2012 JERMAINE FERRER APRN 626.4 IRREGULAR MENSTRUAL CYCLE 10/03/2012 ARIAN US PSYD L 626.4 IRREGULAR MENSTRUAL CYCLE 10/03/2012 HARLEEN LOU APRN 626.4 IRREGULAR MENSTRUAL CYCLE 10/03/2012 HARLEEN LOU APRN 626.4 IRREGULAR MENSTRUAL CYCLE 10/03/2012 ARIAN US PSYD 626.4 IRREGULAR MENSTRUAL CYCLE 10/03/2012 ARIAN US PSYD L 626.4 IRREGULAR MENSTRUAL CYCLE 10/03/2012 LOUISE COBOS MD 626.4 IRREGULAR MENSTRUAL CYCLE 10/03/2012 JERMAINE FERRER APRN 626.4 IRREGULAR MENSTRUAL CYCLE 10/03/2012 ARIAN US PSYD 626.4 IRREGULAR MENSTRUAL CYCLE 10/03/2012 ARIAN US PSYD L 626.4 IRREGULAR MENSTRUAL CYCLE 10/03/2012 ARIAN US PSYD L 626.4 IRREGULAR MENSTRUAL CYCLE 10/03/2012 AISLINN OCONNOR BEVERLY S 626.4 IRREGULAR MENSTRUAL CYCLE 10/03/2012 ARIAN US PSYD L 626.4 IRREGULAR MENSTRUAL CYCLE 10/03/2012 LUCIANO WILLARD DO 626.4 IRREGULAR MENSTRUAL CYCLE 10/03/2012 LOUISE COBOS MD 626.4 IRREGULAR MENSTRUAL CYCLE 10/03/2012 ARIAN US PSYD L 626.4 IRREGULAR MENSTRUAL CYCLE 10/03/2012 AISLINN OCONNOR BEVERLY S 626.4 IRREGULAR MENSTRUAL CYCLE 10/03/2012 ARIAN US PSYD L 626.4 IRREGULAR MENSTRUAL CYCLE 10/03/2012 ARIAN US PSYD L 626.4 IRREGULAR MENSTRUAL CYCLE 10/03/2012 LATONYA TAO APRNA S 626.4 IRREGULAR MENSTRUAL CYCLE 10/03/2012 ARIAN US PSYD L 626.4 IRREGULAR MENSTRUAL CYCLE 10/03/2012 JAVAD DAMON APRN 626.4 IRREGULAR MENSTRUAL CYCLE 10/03/2012 CLAUDE ATO APRNNDA S 626.4 IRREGULAR MENSTRUAL CYCLE 10/03/2012 JAVAD DAMON APRN 626.4 IRREGULAR MENSTRUAL CYCLE 10/03/2012 ARIAN US PSYD L 626.4 IRREGULAR MENSTRUAL CYCLE 10/03/2012 ARIAN US PSYD L 626.4 IRREGULAR MENSTRUAL CYCLE 10/03/2012 ARIAN US PSYD L 626.4 IRREGULAR MENSTRUAL CYCLE 10/03/2012 AISLINN OCONNOR BEVERLY S 626.4 IRREGULAR MENSTRUAL CYCLE 10/03/2012 CATALINA MCKNIGHT APRN A 626.4 IRREGULAR MENSTRUAL CYCLE 10/03/2012 NELSON ANASTASIA JAVAD 626.4 IRREGULAR MENSTRUAL CYCLE 10/03/2012 ARIAN US PSYD L 626.4 IRREGULAR MENSTRUAL CYCLE 10/03/2012 ARIAN US PSYD L 626.4 IRREGULAR MENSTRUAL CYCLE 10/03/2012 AISLINN OCONNOR BEVERLY S 626.4 IRREGULAR MENSTRUAL CYCLE 10/03/2012 ARIAN US PSYD L 626.4 IRREGULAR MENSTRUAL CYCLE 10/03/2012 ARIAN US PSYD L 626.4 IRREGULAR MENSTRUAL CYCLE 10/03/2012 CATALINA MCKNIGHT APRN 626.4 IRREGULAR MENSTRUAL CYCLE 10/03/2012 ARIAN US PSYD L 626.4 IRREGULAR MENSTRUAL CYCLE 10/03/2012 ARIAN US PSYD L 626.4 IRREGULAR MENSTRUAL CYCLE 10/03/2012 ARIAN US PSYD L 626.4 IRREGULAR MENSTRUAL CYCLE 10/10/2012 278.00 OBESITY 10/10/2012 V73.81 HPV SCREENING 10/10/2012 V76.10 BREAST CANCER SCREENING 10/10/2012 V76.2 CERVICAL CANCER SCREENING (PAP SMEAR) 10/10/2012 278.00 OBESITY 10/10/2012 V73.81 HPV SCREENING 10/10/2012 V76.10 BREAST CANCER SCREENING 10/10/2012 V76.2 CERVICAL CANCER SCREENING (PAP SMEAR) 10/10/2012 278.00 OBESITY 10/10/2012 V73.81 HPV SCREENING 10/10/2012 V76.10 BREAST CANCER SCREENING 10/10/2012 V76.2 CERVICAL CANCER SCREENING (PAP SMEAR) 10/10/2012 278.00 OBESITY 10/10/2012 V73.81 HPV SCREENING 10/10/2012 V76.10 BREAST CANCER SCREENING 10/10/2012 V76.2 CERVICAL CANCER SCREENING (PAP SMEAR) 10/10/2012 278.00 OBESITY 10/10/2012 V73.81 HPV SCREENING 10/10/2012 V76.10 BREAST CANCER SCREENING 10/10/2012 V76.2 CERVICAL CANCER SCREENING (PAP SMEAR) 10/10/2012 ARIAN US PSYD L 278.00 OBESITY 10/10/2012 ARIAN US PSYD L V73.81 HPV SCREENING 10/10/2012 ARIAN US PSYD L V76.10 BREAST CANCER SCREENING 10/10/2012 ARIAN US PSYD L V76.2 CERVICAL CANCER SCREENING (PAP SMEAR) 10/10/2012 ARIAN US PSYD L 278.00 OBESITY 10/10/2012 ARIAN US PSYD L V73.81 HPV SCREENING 10/10/2012 MCCLEEARY PSYD, DAISHA L V76.10 BREAST CANCER SCREENING 10/10/2012 ARIAN US PSYD L V76.2 CERVICAL CANCER SCREENING (PAP SMEAR) 10/10/2012 WILLARD DO LUCIANO K 278.00 OBESITY 10/10/2012 WILLARD , LUCIANO K V73.81 HPV SCREENING 10/10/2012 WILLARD DO, LUCIANO K V76.10 BREAST CANCER SCREENING 10/10/2012 WILLARD , LUCIANO K V76.2 CERVICAL CANCER SCREENING (PAP SMEAR) 10/10/2012 JERMAINE FERRER APRN 278.00 OBESITY 10/10/2012 JERMAINE FERRER APRN V73.81 HPV SCREENING 10/10/2012 JERMAINE FERRER APRN V76.10 BREAST CANCER SCREENING 10/10/2012 JERMAINE FERRER APRN V76.2 CERVICAL CANCER SCREENING (PAP SMEAR) 10/10/2012 ARIAN US PSYD 278.00 OBESITY 10/10/2012 ARIAN US PSYD V73.81 HPV SCREENING 10/10/2012 ARIAN US PSYD L V76.10 BREAST CANCER SCREENING 10/10/2012 ARIAN US PSYD L V76.2 CERVICAL CANCER SCREENING (PAP SMEAR) 10/10/2012 JASMIN MCKNIGHT APRNIDI A 278.00 OBESITY 10/10/2012 JASMIN MCKNIGHT APRNIDI A V73.81 HPV SCREENING 10/10/2012 ROXANNA OCONNOR CATALINA A V76.10 BREAST CANCER SCREENING 10/10/2012 ROXANNA OCONNOR CATALINA A V76.2 CERVICAL CANCER SCREENING (PAP SMEAR) 10/10/2012 LATONYA TAO APRNA S 278.00 OBESITY 10/10/2012 CLAUDE TAO APRNNDA S V73.81 HPV SCREENING 10/10/2012 CLAUDE TAO APRNNDA S V76.10 BREAST CANCER SCREENING 10/10/2012 CLAUDE TAO APRNNDA S V76.2 CERVICAL CANCER SCREENING (PAP SMEAR) 10/10/2012 JERMAINE FERRER APRN 278.00 OBESITY 10/10/2012 JERMAINE FERRER APRN V73.81 HPV SCREENING 10/10/2012 JERMAINE FERRER APRN V76.10 BREAST CANCER SCREENING 10/10/2012 JERMAINE FERRER APRN V76.2 CERVICAL CANCER SCREENING (PAP SMEAR) 10/10/2012 ARIAN US PSYD 278.00 OBESITY 10/10/2012 ARIAN US PSYD L V73.81 HPV SCREENING 10/10/2012 ARIAN US PSYD L V76.10 BREAST CANCER SCREENING 10/10/2012 ARIAN US PSYD L V76.2 CERVICAL CANCER SCREENING (PAP SMEAR) 10/10/2012 DASHA OCONNOR HARLEEN T 278.00 OBESITY 10/10/2012 DASHA OCONNOR HARLEEN T V73.81 HPV SCREENING 10/10/2012 DASHA OCONNOR HARLEEN T V76.10 BREAST CANCER SCREENING 10/10/2012 DASHA OCONNOR HARLEEN T V76.2 CERVICAL CANCER SCREENING (PAP SMEAR) 10/10/2012 DASHA OCONNOR HARLEEN T 278.00 OBESITY 10/10/2012 DASHA OCONNOR HARLEEN T V73.81 HPV SCREENING 10/10/2012 DASHA OCONNOR HARLEEN T V76.10 BREAST CANCER SCREENING 10/10/2012 DASHA OCONNOR HARLEEN T V76.2 CERVICAL CANCER SCREENING (PAP SMEAR) 10/10/2012 ARIAN US PSYD L 278.00 OBESITY 10/10/2012 ARIAN US PSYD L V73.81 HPV SCREENING 10/10/2012 ARIAN US PSYD L V76.10 BREAST CANCER SCREENING 10/10/2012 ARIAN US PSYD L V76.2 CERVICAL CANCER SCREENING (PAP SMEAR) 10/10/2012 ARIAN US PSYD L 278.00 OBESITY 10/10/2012 ARIAN US PSYD L V73.81 HPV SCREENING 10/10/2012 ARIAN US PSYD L V76.10 BREAST CANCER SCREENING 10/10/2012 ARIAN US PSYD V76.2 CERVICAL CANCER SCREENING (PAP SMEAR) 10/10/2012 PAPITO GAYLE, LOUISE 278.00 OBESITY 10/10/2012 LOUISE COBOS MD V73.81 HPV SCREENING 10/10/2012 LOUISE COBOS MD V76.10 BREAST CANCER SCREENING 10/10/2012 LOUISE COBOS MD V76.2 CERVICAL CANCER SCREENING (PAP SMEAR) 10/10/2012 JERMAINE FERRER APRN 278.00 OBESITY 10/10/2012 JERMAINE FERRER APRN V73.81 HPV SCREENING 10/10/2012 JERMAINE FERRER APRN V76.10 BREAST CANCER SCREENING 10/10/2012 JERMAINE FERRER APRN V76.2 CERVICAL CANCER SCREENING (PAP SMEAR) 10/10/2012 ARIAN US PSYD L 278.00 OBESITY 10/10/2012 ARIAN US PSYD L V73.81 HPV SCREENING 10/10/2012 ARIAN US PSYD L V76.10 BREAST CANCER SCREENING 10/10/2012 ARIAN US PSYD V76.2 CERVICAL CANCER SCREENING (PAP SMEAR) 10/10/2012 ARIAN US PSYD L 278.00 OBESITY 10/10/2012 ARIAN US PSYD L V73.81 HPV SCREENING 10/10/2012 ARIAN US PSYD L V76.10 BREAST CANCER SCREENING 10/10/2012 ARIAN US PSYD L V76.2 CERVICAL CANCER SCREENING (PAP SMEAR) 10/10/2012 ARIAN US PSYD L 278.00 OBESITY 10/10/2012 ARIAN US PSYD L V73.81 HPV SCREENING 10/10/2012 ARIAN US PSYD L V76.10 BREAST CANCER SCREENING 10/10/2012 ARIAN US PSYD L V76.2 CERVICAL CANCER SCREENING (PAP SMEAR) 10/10/2012 LATONYA TAO APRNA S 278.00 OBESITY 10/10/2012 CLAUDE TAO APRNNDA S V73.81 HPV SCREENING 10/10/2012 BEVERLY TAO APRN S V76.10 BREAST CANCER SCREENING 10/10/2012 LATONYA TAO APRNA S V76.2 CERVICAL CANCER SCREENING (PAP SMEAR) 10/10/2012 ARIAN US PSYD L 278.00 OBESITY 10/10/2012 ARIAN US PSYD L V73.81 HPV SCREENING 10/10/2012 ARIAN US PSYD L V76.10 BREAST CANCER SCREENING 10/10/2012 ARIAN US PSYD L V76.2 CERVICAL CANCER SCREENING (PAP SMEAR) 10/10/2012 LUCIANO WILLARD DO K 278.00 OBESITY 10/10/2012 LUCIANO WILLARD DO K V73.81 HPV SCREENING 10/10/2012 RUBA WILLARD DOA K V76.10 BREAST CANCER SCREENING 10/10/2012 RUBA WILLARD DOA K V76.2 CERVICAL CANCER SCREENING (PAP SMEAR) 10/10/2012 LOUISE COBOS MD 278.00 OBESITY 10/10/2012 LOUISE COBOS MD V73.81 HPV SCREENING 10/10/2012 LOUISE COBOS MD V76.10 BREAST CANCER SCREENING 10/10/2012 LOUISE COBOS MD V76.2 CERVICAL CANCER SCREENING (PAP SMEAR) 10/10/2012 RAIAN US PSYD L 278.00 OBESITY 10/10/2012 ARIAN US PSYD L V73.81 HPV SCREENING 10/10/2012 ARIAN US PSYD L V76.10 BREAST CANCER SCREENING 10/10/2012 ARIAN US PSYD L V76.2 CERVICAL CANCER SCREENING (PAP SMEAR) 10/10/2012 BEVERLY TAO APRN S 278.00 OBESITY 10/10/2012 CLAUDE TAO APRNNDA S V73.81 HPV SCREENING 10/10/2012 CLAUDE TAO APRNNDA S V76.10 BREAST CANCER SCREENING 10/10/2012 LATONYA TAO APRNA S V76.2 CERVICAL CANCER SCREENING (PAP SMEAR) 10/10/2012 ARIAN US PSYD L 278.00 OBESITY 10/10/2012 ARIAN US PSYD L V73.81 HPV SCREENING 10/10/2012 ARIAN US PSYD L V76.10 BREAST CANCER SCREENING 10/10/2012 ARIAN US PSYD L V76.2 CERVICAL CANCER SCREENING (PAP SMEAR) 10/10/2012 ARIAN US PSYD L 278.00 OBESITY 10/10/2012 ARIAN US PSYD L V73.81 HPV SCREENING 10/10/2012 ARIAN US PSYD L V76.10 BREAST CANCER SCREENING 10/10/2012 ARIAN US PSYD L V76.2 CERVICAL CANCER SCREENING (PAP SMEAR) 10/10/2012 AISLINN OCONNOR BEVERLY S 278.00 OBESITY 10/10/2012 AISLINN TAXI PROPRIETOR, BEVERLY S V73.81 HPV SCREENING 10/10/2012 AISLINN OCONNOR BEVERLY S V76.10 BREAST CANCER SCREENING 10/10/2012 AISLINN OCONNOR BEVERLY S V76.2 CERVICAL CANCER SCREENING (PAP SMEAR) 10/10/2012 ARIAN US PSYD L 278.00 OBESITY 10/10/2012 ARIAN US PSYD L V73.81 HPV SCREENING 10/10/2012 ARIAN US PSYD L V76.10 BREAST CANCER SCREENING 10/10/2012 ARIAN US PSYD ANN L V76.2 CERVICAL CANCER SCREENING (PAP SMEAR) 10/10/2012 NELSON TAXI PROPRIETOR, JAVAD 278.00 OBESITY 10/10/2012 NELSON TAXI PROPRIETOR, JAVAD V73.81 HPV SCREENING 10/10/2012 NELSON TAXI PROPRIETOR, JAVAD V76.10 BREAST CANCER SCREENING 10/10/2012 NELSON TAXI PROPRIETOR, JAVAD V76.2 CERVICAL CANCER SCREENING (PAP SMEAR) 10/10/2012 AISLINN TAXI PROPRIETOR, BEVERLY S 278.00 OBESITY 10/10/2012 AISLINN OCONNOR, BEVERLY S V73.81 HPV SCREENING 10/10/2012 AISLINN OCONNOR BEVERLY S V76.10 BREAST CANCER SCREENING 10/10/2012 AISLINN OCONNOR BEVERLY S V76.2 CERVICAL CANCER SCREENING (PAP SMEAR) 10/10/2012 NELSON TAXI PROPRIETOR, JAVAD 278.00 OBESITY 10/10/2012 NELSON TAXI PROPRIETOR, JAVAD V73.81 HPV SCREENING 10/10/2012 NELSON TAXI PROPRIETOR, JAVAD V76.10 BREAST CANCER SCREENING 10/10/2012 NELSON TAXI PROPRIETOR, JAVAD V76.2 CERVICAL CANCER SCREENING (PAP SMEAR) 10/10/2012 ARIAN US PSYD L 278.00 OBESITY 10/10/2012 ARIAN US PSYD ANN L V73.81 HPV SCREENING 10/10/2012 ARIAN US PSYD ANN L V76.10 BREAST CANCER SCREENING 10/10/2012 ARIAN US PSYD ANN L V76.2 CERVICAL CANCER SCREENING (PAP SMEAR) 10/10/2012 ARIAN US PSYD L 278.00 OBESITY 10/10/2012 ARIAN US PSYD ANN L V73.81 HPV SCREENING 10/10/2012 ARIAN US PSYD ANN L V76.10 BREAST CANCER SCREENING 10/10/2012 ARIAN US PSYD ANN L V76.2 CERVICAL CANCER SCREENING (PAP SMEAR) 10/10/2012 ARIAN US PSYD ANN L 278.00 OBESITY 10/10/2012 ARIAN US PSYD ANN L V73.81 HPV SCREENING 10/10/2012 ARIAN US PSYD ANN L V76.10 BREAST CANCER SCREENING 10/10/2012 ARIAN US PSYD ANN L V76.2 CERVICAL CANCER SCREENING (PAP SMEAR) 10/10/2012 AISLINN OCONNOR BEVERLY S 278.00 OBESITY 10/10/2012 CLAUDE TAO APRNNDA S V73.81 HPV SCREENING 10/10/2012 AISLINN OCONNOR BEVERLY S V76.10 BREAST CANCER SCREENING 10/10/2012 AISLINN OCONNOR BEVERLY S V76.2 CERVICAL CANCER SCREENING (PAP SMEAR) 10/10/2012 ROXANNA OCONNOR, CATALINA A 278.00 OBESITY 10/10/2012 ROXANNACARLOS EDUARDO OCONNOR, CATALINA A V73.81 HPV SCREENING 10/10/2012 ROXANNA OCONNOR, CATALINA A V76.10 BREAST CANCER SCREENING 10/10/2012 ROXANNA OCONNOR, CATALINA A V76.2 CERVICAL CANCER SCREENING (PAP SMEAR) 10/10/2012 NELSON TAXI PROPRIETOR, JAVAD 278.00 OBESITY 10/10/2012 NELSON TAXI PROPRIETOR, JAVAD V73.81 HPV SCREENING 10/10/2012 NELSON TAXI PROPRIETOR, JAVAD V76.10 BREAST CANCER SCREENING 10/10/2012 NELSON TAXI PROPRIETOR, JAVAD V76.2 CERVICAL CANCER SCREENING (PAP SMEAR) 10/10/2012 ARIAN US PSYD L 278.00 OBESITY 10/10/2012 MCCARIAN SOUZA PSYD L V73.81 HPV SCREENING 10/10/2012 ARIAN US PSYD L V76.10 BREAST CANCER SCREENING 10/10/2012 ARIAN US PSYD L V76.2 CERVICAL CANCER SCREENING (PAP SMEAR) 10/10/2012 ARIAN US PSYD L 278.00 OBESITY 10/10/2012 ARIAN US PSYD L V73.81 HPV SCREENING 10/10/2012 ARIAN US PSYD L V76.10 BREAST CANCER SCREENING 10/10/2012 ARIAN US PSYD L V76.2 CERVICAL CANCER SCREENING (PAP SMEAR) 10/10/2012 AISLINN OCONNOR BEVERLY S 278.00 OBESITY 10/10/2012 AISLINNCHICHI OCONNOR BEVERLY S V73.81 HPV SCREENING 10/10/2012 AISLINN OCONNOR, BEVERLY S V76.10 BREAST CANCER SCREENING 10/10/2012 AISLINN OCONNOR BEVERLY S V76.2 CERVICAL CANCER SCREENING (PAP SMEAR) 10/10/2012 ARIAN US PSYD L 278.00 OBESITY 10/10/2012 ARIAN US PSYD L V73.81 HPV SCREENING 10/10/2012 ARIAN US PSYD L V76.10 BREAST CANCER SCREENING 10/10/2012 ARIAN US PSYD L V76.2 CERVICAL CANCER SCREENING (PAP SMEAR) 10/10/2012 ARIAN US PSYD L 278.00 OBESITY 10/10/2012 ARIAN US PSYD L V73.81 HPV SCREENING 10/10/2012 ARIAN US PSYD L V76.10 BREAST CANCER SCREENING 10/10/2012 ARIAN US PSYD L V76.2 CERVICAL CANCER SCREENING (PAP SMEAR) 10/10/2012 ROXANNA OCONNOR, CATALINA A 278.00 OBESITY 10/10/2012 ROXANNA OCONNOR, CATALINA A V73.81 HPV SCREENING 10/10/2012 ROXANNA OCONNOR, CATALINA A V76.10 BREAST CANCER SCREENING 10/10/2012 ROXANNA OCONNOR CATALINA A V76.2 CERVICAL CANCER SCREENING (PAP SMEAR) 10/10/2012 ARIAN US PSYD L 278.00 OBESITY 10/10/2012 ARIAN US PSYD ANN L V73.81 HPV SCREENING 10/10/2012 ARIAN US PSYD L V76.10 BREAST CANCER SCREENING 10/10/2012 ARIAN US PSYD L V76.2 CERVICAL CANCER SCREENING (PAP SMEAR) 10/10/2012 ARIAN US PSYD L 278.00 OBESITY 10/10/2012 ARIAN US PSYD ANN L V73.81 HPV SCREENING 10/10/2012 ARIAN US PSYD ANN L V76.10 BREAST CANCER SCREENING 10/10/2012 ARIAN US PSYD ANN L V76.2 CERVICAL CANCER SCREENING (PAP SMEAR) 10/10/2012 ARIAN US PSYD L 278.00 OBESITY 10/10/2012 ARIAN US PSYD ANN L V73.81 HPV SCREENING 10/10/2012 ARIAN US PSYD L V76.10 BREAST CANCER SCREENING 10/10/2012 ARIAN US PSYD L V76.2 CERVICAL CANCER SCREENING (PAP SMEAR) 03/28/2013 BEVERLY TAO APRN 706.2 SEBACEOUS CYST 03/28/2013 JERMAINE FERRER APRN 706.2 SEBACEOUS CYST 03/28/2013 ARIAN US PSYD L 706.2 SEBACEOUS CYST 03/28/2013 HARLEEN LOU APRN 706.2 SEBACEOUS CYST 03/28/2013 HARLEEN LOU APRN 706.2 SEBACEOUS CYST 03/28/2013 ARIAN US PSYD ANN L 706.2 SEBACEOUS CYST 03/28/2013 ARIAN US PSYD ANN L 706.2 SEBACEOUS CYST 03/28/2013 LOUISE COBOS MD 706.2 SEBACEOUS CYST 03/28/2013 JERMAINE FERRER APRN 706.2 SEBACEOUS CYST 03/28/2013 ARIAN US PSYD L 706.2 SEBACEOUS CYST 03/28/2013 ARIAN US PSYD ANN L 706.2 SEBACEOUS CYST 03/28/2013 ARIAN US PSYD ANN L 706.2 SEBACEOUS CYST 03/28/2013 AISLINN OCONNOR, BEVERLY S 706.2 SEBACEOUS CYST 03/28/2013 ARIAN US PSYD ANN L 706.2 SEBACEOUS CYST 03/28/2013 LUCIANO WILLARD DO K 706.2 SEBACEOUS CYST 03/28/2013 LOUISE COBOS MD 706.2 SEBACEOUS CYST 03/28/2013 ARIAN US PSYD ANN L 706.2 SEBACEOUS CYST 03/28/2013 AISLINN OCONNOR, BEVERLY S 706.2 SEBACEOUS CYST 03/28/2013 ARIAN US PSYD ANN L 706.2 SEBACEOUS CYST 03/28/2013 ARIAN US PSYD ANN L 706.2 SEBACEOUS CYST 03/28/2013 AISLINN OCONNOR, BEVERLY S 706.2 SEBACEOUS CYST 03/28/2013 ARIAN US PSYD ANN L 706.2 SEBACEOUS CYST 03/28/2013 NELSON OCONNOR, JAVAD 706.2 SEBACEOUS CYST 03/28/2013 CLAUDE TAO APRNNDA S 706.2 SEBACEOUS CYST 03/28/2013 NELSON OCONNOR, JAVAD 706.2 SEBACEOUS CYST 03/28/2013 ARIAN US PSYD ANN L 706.2 SEBACEOUS CYST 03/28/2013 ARIAN US PSYD ANN L 706.2 SEBACEOUS CYST 03/28/2013 ARIAN US PSYD ANN L 706.2 SEBACEOUS CYST 03/28/2013 AISLINN OCONNOR, BEVERLY S 706.2 SEBACEOUS CYST 03/28/2013 ROXANNA OCONNOR CATALINA A 706.2 SEBACEOUS CYST 03/28/2013 NELSON TAXI PROPRIETOR, JAVAD 706.2 SEBACEOUS CYST 03/28/2013 ARIAN US PSYD ANN L 706.2 SEBACEOUS CYST 03/28/2013 ARIAN US PSYD ANN L 706.2 SEBACEOUS CYST 03/28/2013 AISLINN OCONNOR, BEVERLY S 706.2 SEBACEOUS CYST 03/28/2013 ARIAN US PSYD ANN L 706.2 SEBACEOUS CYST 03/28/2013 ARIAN US PSYD ANN L 706.2 SEBACEOUS CYST 03/28/2013 ROXANNA ANASTASIA CATALINA A 706.2 SEBACEOUS CYST 03/28/2013 ARIAN US PSYD ANN L 706.2 SEBACEOUS CYST 03/28/2013 ARIAN US PSYD L 706.2 SEBACEOUS CYST 03/28/2013 ARIAN US PSYD ANN L 706.2 SEBACEOUS CYST 05/03/2013 HARLEEN LOU APRN V58.32 SUTURE REMOVAL 05/03/2013 ARIAN US PSYD L V58.32 SUTURE REMOVAL 05/03/2013 ARIAN US PSYD L V58.32 SUTURE REMOVAL 05/03/2013 LOUISE COBOS MD V58.32 SUTURE REMOVAL 05/03/2013 JERMAINE FERRER APRN V58.32 SUTURE REMOVAL 05/03/2013 ARIAN US PSYD L V58.32 SUTURE REMOVAL 05/03/2013 ARIAN US PSYD ANN L V58.32 SUTURE REMOVAL 05/03/2013 ARIAN US PSYD ANN L V58.32 SUTURE REMOVAL 05/03/2013 LATONYA TAO APRNA S V58.32 SUTURE REMOVAL 05/03/2013 ARIAN US PSYD ANN L V58.32 SUTURE REMOVAL 05/03/2013 LUCIANO WILLARD DO V58.32 SUTURE REMOVAL 05/03/2013 LOUISE COBOS MD V58.32 SUTURE REMOVAL 05/03/2013 ARIAN US PSYD ANN L V58.32 SUTURE REMOVAL 05/03/2013 CLAUDE TAO APRNNDA S V58.32 SUTURE REMOVAL 05/03/2013 ARIAN US PSYD ANN L V58.32 SUTURE REMOVAL 05/03/2013 ARIAN US PSYD ANN L V58.32 SUTURE REMOVAL 05/03/2013 AISLINN OCONNOR BEVERLY S V58.32 SUTURE REMOVAL 05/03/2013 ARIAN US PSYD ANN L V58.32 SUTURE REMOVAL 05/03/2013 JAVAD DAMON APRN V58.32 SUTURE REMOVAL 05/03/2013 AISLINN TAXI PROPRIETOR, BEVERLY S V58.32 SUTURE REMOVAL 05/03/2013 NELSON TAXI PROPRIETOR, JAVAD V58.32 SUTURE REMOVAL 05/03/2013 ARIAN US PSYD ANN L V58.32 SUTURE REMOVAL 05/03/2013 ARIAN US PSYD ANN L V58.32 SUTURE REMOVAL 05/03/2013 ABEBA GARZA, DAISHA L V58.32 SUTURE REMOVAL 05/03/2013 AISLINN TAXI PROPRIETOR, BEVERLY S V58.32 SUTURE REMOVAL 05/03/2013 ROXANNA TAXI PROPRIETOR, CATALINA A V58.32 SUTURE REMOVAL 05/03/2013 NELSON TAXI PROPRIETOR, JAVAD V58.32 SUTURE REMOVAL 05/03/2013 ARIAN US PSYD ANN L V58.32 SUTURE REMOVAL 05/03/2013 ARIAN US PSYD ANN L V58.32 SUTURE REMOVAL 05/03/2013 AISLINN TAXI PROPRIETOR, BEVERLY S V58.32 SUTURE REMOVAL 05/03/2013 ARIAN US PSYD ANN L V58.32 SUTURE REMOVAL 05/03/2013 ARIAN US PSYD ANN L V58.32 SUTURE REMOVAL 05/03/2013 ROXANNA TAXI PROPRIETOR, CATALINA A V58.32 SUTURE REMOVAL 05/03/2013 ARIAN US PSYD ANN L V58.32 SUTURE REMOVAL 05/03/2013 ARIAN US PSYD ANN L V58.32 SUTURE REMOVAL 05/03/2013 ARIAN US PSYD ANN L V58.32 SUTURE REMOVAL 06/05/2013 LOUISE COBOS MD 250.00 DIABETES II CONTROLLED (UNCOMPLICATED) 06/05/2013 LOUISE COBOS MD 784.0 HEADACHE 06/05/2013 LOUISE COBOS MD 789.07 ABDOMINAL PAIN GENERALIZED 06/05/2013 JERMAINE FERRER APRN 250.00 DIABETES II CONTROLLED (UNCOMPLICATED) 06/05/2013 JERMAINE FERRER APRN 784.0 HEADACHE 06/05/2013 JERMAINE FERRER APRN 789.07 ABDOMINAL PAIN GENERALIZED 06/05/2013 ARIAN US PSYD 250.00 DIABETES II CONTROLLED (UNCOMPLICATED) 06/05/2013 ARIAN US PSYD 784.0 HEADACHE 06/05/2013 ARIAN US PSYD ANN L 789.07 ABDOMINAL PAIN GENERALIZED 06/05/2013 ARIAN US PSYD ANN L 250.00 DIABETES II CONTROLLED (UNCOMPLICATED) 06/05/2013 ARIAN US PSYD ANN L 784.0 HEADACHE 06/05/2013 ARIAN US PSYD ANN L 789.07 ABDOMINAL PAIN GENERALIZED 06/05/2013 ARIAN US PSYD ANN L 250.00 DIABETES II CONTROLLED (UNCOMPLICATED) 06/05/2013 ARIAN US PSYD ANN L 784.0 HEADACHE 06/05/2013 ARIAN US PSYD ANN L 789.07 ABDOMINAL PAIN GENERALIZED 06/05/2013 AISLINN TAXI PROPRIETOR, BEVERLY S 250.00 DIABETES II CONTROLLED (UNCOMPLICATED) 06/05/2013 AISLINN TAXI PROPRIETOR, BEVERLY S 784.0 HEADACHE 06/05/2013 AISLINN TAXI PROPRIETOR, BEVERLY S 789.07 ABDOMINAL PAIN GENERALIZED 06/05/2013 ARIAN US PSYD L 250.00 DIABETES II CONTROLLED (UNCOMPLICATED) 06/05/2013 ARIAN US PSYD ANN L 784.0 HEADACHE 06/05/2013 ARIAN US PSYD ANN L 789.07 ABDOMINAL PAIN GENERALIZED 06/05/2013 WILLARD DO, LUCIAON K 250.00 DIABETES II CONTROLLED (UNCOMPLICATED) 06/05/2013 WILLARD DO, LUCIANO K 784.0 HEADACHE 06/05/2013 WILLARD DO, LUCIANO K 789.07 ABDOMINAL PAIN GENERALIZED 06/05/2013 LOUISE COBOS MD 250.00 DIABETES II CONTROLLED (UNCOMPLICATED) 06/05/2013 LOUISE COBOS MD 784.0 HEADACHE 06/05/2013 LOUISE COBOS MD 789.07 ABDOMINAL PAIN GENERALIZED 06/05/2013 ARIAN US PSYD L 250.00 DIABETES II CONTROLLED (UNCOMPLICATED) 06/05/2013 ARIAN US PSYD ANN L 784.0 HEADACHE 06/05/2013 ARIAN US PSYD ANN L 789.07 ABDOMINAL PAIN GENERALIZED 06/05/2013 AISLINN TAXI PROPRIETOR, BEVERLY S 250.00 DIABETES II CONTROLLED (UNCOMPLICATED) 06/05/2013 ASILINN TAXI PROPRIETOR, BEVERLY S 784.0 HEADACHE 06/05/2013 AISLINN TAXI PROPRIETOR, BEVERLY S 789.07 ABDOMINAL PAIN GENERALIZED 06/05/2013 ARIAN US PSYD ANN L 250.00 DIABETES II CONTROLLED (UNCOMPLICATED) 06/05/2013 ARIAN US PSYD ANN L 784.0 HEADACHE 06/05/2013 ARIAN US PSYD ANN L 789.07 ABDOMINAL PAIN GENERALIZED 06/05/2013 ARIAN US PSYD ANN L 250.00 DIABETES II CONTROLLED (UNCOMPLICATED) 06/05/2013 ARIAN US PSYD ANN L 784.0 HEADACHE 06/05/2013 ARIAN US PSYD ANN L 789.07 ABDOMINAL PAIN GENERALIZED 06/05/2013 AISLINN TAXI PROPRIETOR, BEVERLY S 250.00 DIABETES II CONTROLLED (UNCOMPLICATED) 06/05/2013 AISLINN TAXI PROPRIETOR, BEVERLY S 784.0 HEADACHE 06/05/2013 AISLINN TAXI PROPRIETOR, BEVERLY S 789.07 ABDOMINAL PAIN GENERALIZED 06/05/2013 ARIAN US PSYD ANN L 250.00 DIABETES II CONTROLLED (UNCOMPLICATED) 06/05/2013 ARIAN US PSYD ANN L 784.0 HEADACHE 06/05/2013 ARIAN US PSYD ANN L 789.07 ABDOMINAL PAIN GENERALIZED 06/05/2013 NELSON TAXI PROPRIETOR, JAVAD 250.00 DIABETES II CONTROLLED (UNCOMPLICATED) 06/05/2013 NELSON TAXI PROPRIETOR, JAVAD 784.0 HEADACHE 06/05/2013 NELSON TAXI PROPRIETOR, JAVAD 789.07 ABDOMINAL PAIN GENERALIZED 06/05/2013 AISLINN TAXI PROPRIETOR, BEVERLY S 250.00 DIABETES II CONTROLLED (UNCOMPLICATED) 06/05/2013 AISLINN TAXI PROPRIETOR, BEVERLY S 784.0 HEADACHE 06/05/2013 AISLINN TAXI PROPRIETOR, BEVERLY S 789.07 ABDOMINAL PAIN GENERALIZED 06/05/2013 NELSON TAXI PROPRIETOR, JAVAD 250.00 DIABETES II CONTROLLED (UNCOMPLICATED) 06/05/2013 NELSON TAXI PROPRIETOR, JAVAD 784.0 HEADACHE 06/05/2013 NELSON TAXI PROPRIETOR, JAVAD 789.07 ABDOMINAL PAIN GENERALIZED 06/05/2013 ARIAN US PSYD ANN L 250.00 DIABETES II CONTROLLED (UNCOMPLICATED) 06/05/2013 ABEBA GARZA, DAISHA L 784.0 HEADACHE 06/05/2013 ABEBA GARZA, DAISHA L 789.07 ABDOMINAL PAIN GENERALIZED 06/05/2013 ABEBA GARZA, DAISHA L 250.00 DIABETES II CONTROLLED (UNCOMPLICATED) 06/05/2013 ABEBA GARZA, DAISHA L 784.0 HEADACHE 06/05/2013 ARIAN US PSYD ANN L 789.07 ABDOMINAL PAIN GENERALIZED 06/05/2013 ARIAN US PSYD ANN L 250.00 DIABETES II CONTROLLED (UNCOMPLICATED) 06/05/2013 ARIAN US PSYD ANN L 784.0 HEADACHE 06/05/2013 ABEBA GARZA, DAISHA L 789.07 ABDOMINAL PAIN GENERALIZED 06/05/2013 AISLINN TAXI PROPRIETOR, BEVERLY S 250.00 DIABETES II CONTROLLED (UNCOMPLICATED) 06/05/2013 AISLINN TAXI PROPRIETOR, BEVERLY S 784.0 HEADACHE 06/05/2013 AISLINN TAXI PROPRIETOR, BEVERLY S 789.07 ABDOMINAL PAIN GENERALIZED 06/05/2013 ROXANNA TAXI PROPRIETOR, CATALINA A 250.00 DIABETES II CONTROLLED (UNCOMPLICATED) 06/05/2013 ROXANNA TAXI PROPRIETOR, CATALINA A 784.0 HEADACHE 06/05/2013 ROXANNA TAXI PROPRIETOR, CATALINA A 789.07 ABDOMINAL PAIN GENERALIZED 06/05/2013 NELSON TAXI PROPRIETOR, JAVAD 250.00 DIABETES II CONTROLLED (UNCOMPLICATED) 06/05/2013 NELSON TAXI PROPRIETOR, JAVAD 784.0 HEADACHE 06/05/2013 NELSON TAXI PROPRIETOR, JAVAD 789.07 ABDOMINAL PAIN GENERALIZED 06/05/2013 ARIAN US PSYD ANN L 250.00 DIABETES II CONTROLLED (UNCOMPLICATED) 06/05/2013 ABEBA GARZA, DAISHA L 784.0 HEADACHE 06/05/2013 ARIAN US PSYD ANN L 789.07 ABDOMINAL PAIN GENERALIZED 06/05/2013 ARIAN US PSYD ANN L 250.00 DIABETES II CONTROLLED (UNCOMPLICATED) 06/05/2013 ARIAN US PSYD ANN L 784.0 HEADACHE 06/05/2013 ARIAN US PSYD ANN L 789.07 ABDOMINAL PAIN GENERALIZED 06/05/2013 AISLINN OCONNOR BEVERLY S 250.00 DIABETES II CONTROLLED (UNCOMPLICATED) 06/05/2013 CLAUDE TAO APRNNDA S 784.0 HEADACHE 06/05/2013 CLAUDE TAO APRNNDA S 789.07 ABDOMINAL PAIN GENERALIZED 06/05/2013 ARIAN US PSYD ANN L 250.00 DIABETES II CONTROLLED (UNCOMPLICATED) 06/05/2013 ARIAN US PSYD ANN L 784.0 HEADACHE 06/05/2013 ARIAN US PSYD ANN L 789.07 ABDOMINAL PAIN GENERALIZED 06/05/2013 ARIAN US PSYD ANN L 250.00 DIABETES II CONTROLLED (UNCOMPLICATED) 06/05/2013 ARIAN US PSYD ANN L 784.0 HEADACHE 06/05/2013 ARIAN US PSYD ANN L 789.07 ABDOMINAL PAIN GENERALIZED 06/05/2013 ROXANNA OCONNOR CATALINA A 250.00 DIABETES II CONTROLLED (UNCOMPLICATED) 06/05/2013 JASMIN MCKNIGHT APRNIDI A 784.0 HEADACHE 06/05/2013 ROXANNA OCONNOR CATALINA A 789.07 ABDOMINAL PAIN GENERALIZED 06/05/2013 ARIAN US PSYD ANN L 250.00 DIABETES II CONTROLLED (UNCOMPLICATED) 06/05/2013 ARIAN US PSYD ANN L 784.0 HEADACHE 06/05/2013 ARIAN US PSYD ANN L 789.07 ABDOMINAL PAIN GENERALIZED 06/05/2013 ARIAN US PSYD ANN L 250.00 DIABETES II CONTROLLED (UNCOMPLICATED) 06/05/2013 ARIAN US PSYD ANN L 784.0 HEADACHE 06/05/2013 ARIAN US PSYD ANN L 789.07 ABDOMINAL PAIN GENERALIZED 06/05/2013 ARIAN US PSYD ANN L 250.00 DIABETES II CONTROLLED (UNCOMPLICATED) 06/05/2013 ARIAN US PSYD ANN L 784.0 HEADACHE 06/05/2013 ARIAN US PSYD ANN L 789.07 ABDOMINAL PAIN GENERALIZED 06/21/2013 ARIAN US PSYD ANN L 454.8 VARICOSE VEINS 06/21/2013 ARIAN US PSYD ANN L 454.8 VARICOSE VEINS 06/21/2013 ARIAN US PSYD ANN L 454.8 VARICOSE VEINS 06/21/2013 AISLINN TAXI PROPRIETOR, BEVERLY S 454.8 VARICOSE VEINS 06/21/2013 ARIAN US PSYD ANN L 454.8 VARICOSE VEINS 06/21/2013 LUCIANO WILLARD DO 454.8 VARICOSE VEINS 06/21/2013 LOUISE COBOS MD 454.8 VARICOSE VEINS 06/21/2013 ARIAN US PSYD ANN L 454.8 VARICOSE VEINS 06/21/2013 AISLINNCHICHI RUIZN, BEVERLY S 454.8 VARICOSE VEINS 06/21/2013 ARIAN US PSYD ANN L 454.8 VARICOSE VEINS 06/21/2013 ARIAN US PSYD ANN L 454.8 VARICOSE VEINS 06/21/2013 AISLINNCHICHI RUIZN, BEVERLY S 454.8 VARICOSE VEINS 06/21/2013 ARIAN US PSYD ANN L 454.8 VARICOSE VEINS 06/21/2013 NELSON TAXI PROPRIETOR, JAVAD 454.8 VARICOSE VEINS 06/21/2013 AISLINN RUIZN, BEVERLY S 454.8 VARICOSE VEINS 06/21/2013 NELSON TAXI PROPRIETOR, JAVAD 454.8 VARICOSE VEINS 06/21/2013 ARIAN US PSYD ANN L 454.8 VARICOSE VEINS 06/21/2013 ARIAN US PSYD ANN L 454.8 VARICOSE VEINS 06/21/2013 ARIAN US PSYD ANN L 454.8 VARICOSE VEINS 06/21/2013 AISLINN RUIZN, BEVERLY S 454.8 VARICOSE VEINS 06/21/2013 JASMIN MCKNIGHT APRNIDI A 454.8 VARICOSE VEINS 06/21/2013 NELSON TAXI PROPRIETOR, JAVAD 454.8 VARICOSE VEINS 06/21/2013 ARIAN US PSYD ANN L 454.8 VARICOSE VEINS 06/21/2013 ARIAN US PSYD ANN L 454.8 VARICOSE VEINS 06/21/2013 AISLINN TAXI PROPRIETOR, BEVERLY S 454.8 VARICOSE VEINS 06/21/2013 ARIAN US PSYD ANN L 454.8 VARICOSE VEINS 06/21/2013 ARIAN US PSYD ANN L 454.8 VARICOSE VEINS 06/21/2013 CATALINA MCKNIGHT APRN A 454.8 VARICOSE VEINS 06/21/2013 ARIAN US PSYD ANN L 454.8 VARICOSE VEINS 06/21/2013 ARIAN US PSYD ANN L 454.8 VARICOSE VEINS 06/21/2013 ARIAN US PSYD ANN L 454.8 VARICOSE VEINS 07/12/2013 SOCO JOAQUIN TAXI PROPRIETOR Ot 724.4 07/12/2013 SOCO JOAQUIN TAXI PROPRIETOR Ot 729.5 07/12/2013 SOCO JOAQUIN TAXI PROPRIETOR Ot 729.81 07/17/2013 AISLINN OCONNOR BEVERLY S 729.5 PAIN- LEG 07/17/2013 AIRAN US PSYD L 729.5 PAIN- LEG 07/17/2013 LUCIANO WILLARD DO 729.5 PAIN- LEG 07/17/2013 LOUISE COBOS MD 729.5 PAIN- LEG 07/17/2013 ARIAN US PSYD ANN L 729.5 PAIN- LEG 07/17/2013 AISLINN OCONNOR BEVERLY S 729.5 PAIN- LEG 07/17/2013 ARIAN US PSYD ANN L 729.5 PAIN- LEG 07/17/2013 ARIAN US PSYD ANN L 729.5 PAIN- LEG 07/17/2013 AISLINN OCONNOR, BEVERLY S 729.5 PAIN- LEG 07/17/2013 ARIAN US PSYD ANN L 729.5 PAIN- LEG 07/17/2013 NELSON OCONNOR, JAVAD 729.5 PAIN- LEG 07/17/2013 AISLINN OCONNOR, BEVERLY S 729.5 PAIN- LEG 07/17/2013 NELSON TAXI PROPRIETOR, JAVAD 729.5 PAIN- LEG 07/17/2013 ARIAN US PSYD ANN L 729.5 PAIN- LEG 07/17/2013 ARIAN US PSYD ANN L 729.5 PAIN- LEG 07/17/2013 ARIAN US PSYD ANN L 729.5 PAIN- LEG 07/17/2013 AISLINN OCONNOR BEVERLY S 729.5 PAIN- LEG 07/17/2013 ROXANNA TAXI PROPRIETOR, CATALINA A 729.5 PAIN- LEG 07/17/2013 NELSON TAXI PROPRIETOR, JAVAD 729.5 PAIN- LEG 07/17/2013 ABEBA GARZA, DAISHA L 729.5 PAIN- LEG 07/17/2013 ABEBA GRIFFITHSYD, DAISHA L 729.5 PAIN- LEG 07/17/2013 AISLINN OCONNOR, BEVERLY S 729.5 PAIN- LEG 07/17/2013 ABEBA GRIFFITHSYD, DAISHA L 729.5 PAIN- LEG 07/17/2013 MCCLIBBY PSYD, DAISHA L 729.5 PAIN- LEG 07/17/2013 ROXANNA OCONNOR, CATALINA A 729.5 PAIN- LEG 07/17/2013 ABEBA GRIFFITHSYD, DAISHA L 729.5 PAIN- LEG 07/17/2013 ABEBA GARZA, DAISHA L 729.5 PAIN- LEG 07/17/2013 ABEBA GARZA, DAISHA L 729.5 PAIN- LEG 09/11/2013 CLAUDE TAO APRNNDA S 786.50 CHEST PAIN 09/11/2013 ABEBA GARZA, DAISHA L 786.50 CHEST PAIN 09/11/2013 ABEBA GARZA, DAISHA L 786.50 CHEST PAIN 09/11/2013 CLAUDE TAO APRNNDA S 786.50 CHEST PAIN 09/11/2013 ABEBA GARZA, DAISHA L 786.50 CHEST PAIN 09/11/2013 NELSON TAXI PROPRIETOR, JAVAD 786.50 CHEST PAIN 09/11/2013 AISLINN OCONNOR BEVERLY S 786.50 CHEST PAIN 09/11/2013 NELSON TAXI PROPRIETOR, JAVAD 786.50 CHEST PAIN 09/11/2013 ABEBA GARZA, DAISHA L 786.50 CHEST PAIN 09/11/2013 ABEBA GARZA, DAISHA L 786.50 CHEST PAIN 09/11/2013 ABEBA GARZA, DAISHA L 786.50 CHEST PAIN 09/11/2013 AISLINN OCONNOR BEVERLY S 786.50 CHEST PAIN 09/11/2013 ROXANNA OCONNOR CATALINA A 786.50 CHEST PAIN 09/11/2013 NELSONVANDANA OCONNOR, JAVAD 786.50 CHEST PAIN 09/11/2013 ARIAN US PSYD ANN L 786.50 CHEST PAIN 09/11/2013 ABEBA GARZA, DAISHA L 786.50 CHEST PAIN 09/11/2013 BEVERLY TAO APRN S 786.50 CHEST PAIN 09/11/2013 ABEBA GARZA DAISHA L 786.50 CHEST PAIN 09/11/2013 ABEBA GARZA, DAISHA L 786.50 CHEST PAIN 09/11/2013 CATALINA MCKNIGHT APRN A 786.50 CHEST PAIN 09/11/2013 ABEBA GARZA, DAISHA L 786.50 CHEST PAIN 09/11/2013 ABEBA GARZA, DAISHA L 786.50 CHEST PAIN 09/11/2013 ABEBA GARZA DAISHA L 786.50 CHEST PAIN 10/26/2013 BEVERLY TAO APRN S 721.90 SPONDYLOSIS OF UNSPECIFIED SITE WITHOUT MYELOPATHY 10/26/2013 ARIAN US PSYD ANN L 721.90 SPONDYLOSIS OF UNSPECIFIED SITE WITHOUT MYELOPATHY 10/26/2013 NELSON OCONNOR JAVAD 721.90 SPONDYLOSIS OF UNSPECIFIED SITE WITHOUT MYELOPATHY 10/26/2013 BEVERLY TAO APRN S 721.90 SPONDYLOSIS OF UNSPECIFIED SITE WITHOUT MYELOPATHY 10/26/2013 NELSON OCONNOR JAVAD 721.90 SPONDYLOSIS OF UNSPECIFIED SITE WITHOUT MYELOPATHY 10/26/2013 ARIAN US PSYD ANN L 721.90 SPONDYLOSIS OF UNSPECIFIED SITE WITHOUT MYELOPATHY 10/26/2013 ARIAN US PSYD ANN L 721.90 SPONDYLOSIS OF UNSPECIFIED SITE WITHOUT MYELOPATHY 10/26/2013 ARIAN US PSYD ANN L 721.90 SPONDYLOSIS OF UNSPECIFIED SITE WITHOUT MYELOPATHY 10/26/2013 BEVERLY TAO APRN S 721.90 SPONDYLOSIS OF UNSPECIFIED SITE WITHOUT MYELOPATHY 10/26/2013 CATALINA MCKNIGHT APRN 721.90 SPONDYLOSIS OF UNSPECIFIED SITE WITHOUT MYELOPATHY 10/26/2013 NELSON OCONNOR JAVAD 721.90 SPONDYLOSIS OF UNSPECIFIED SITE WITHOUT MYELOPATHY 10/26/2013 ARIAN US PSYD ANN L 721.90 SPONDYLOSIS OF UNSPECIFIED SITE WITHOUT MYELOPATHY 10/26/2013 ARIAN US PSYD ANN L 721.90 SPONDYLOSIS OF UNSPECIFIED SITE WITHOUT MYELOPATHY 10/26/2013 BEVERLY TAO APRN S 721.90 SPONDYLOSIS OF UNSPECIFIED SITE WITHOUT MYELOPATHY 10/26/2013 ARIAN US PSYD ANN L 721.90 SPONDYLOSIS OF UNSPECIFIED SITE WITHOUT MYELOPATHY 10/26/2013 ARIAN US PSYD ANN L 721.90 SPONDYLOSIS OF UNSPECIFIED SITE WITHOUT MYELOPATHY 10/26/2013 ROXANNA OCONNOR CATALINA A 721.90 SPONDYLOSIS OF UNSPECIFIED SITE WITHOUT MYELOPATHY 10/26/2013 ARIAN US PSYD ANN L 721.90 SPONDYLOSIS OF UNSPECIFIED SITE WITHOUT MYELOPATHY 10/26/2013 ARIAN US PSYD ANN L 721.90 SPONDYLOSIS OF UNSPECIFIED SITE WITHOUT MYELOPATHY 10/26/2013 ARIAN US PSYD ANN L 721.90 SPONDYLOSIS OF UNSPECIFIED SITE WITHOUT MYELOPATHY 10/28/2013 SOCO JOAQUIN TAXI PROPRIETOR Ot 724.4 10/28/2013 SOCO JOAQUIN TAXI PROPRIETOR Ot 729.5 11/30/2013 BEVERLY TAO APRN S 354.2 LESION OF ULNAR NERVE 11/30/2013 JAVAD DAMON APRN 354.2 LESION OF ULNAR NERVE 11/30/2013 ARIAN US PSYD ANN L 354.2 LESION OF ULNAR NERVE 11/30/2013 ARIAN US PSYD ANN L 354.2 LESION OF ULNAR NERVE 11/30/2013 ARIAN US PSYD ANN L 354.2 LESION OF ULNAR NERVE 11/30/2013 BEVERLY TAO APRN S 354.2 LESION OF ULNAR NERVE 11/30/2013 CATALINA MCKNIGHT APRN A 354.2 LESION OF ULNAR NERVE 11/30/2013 JAVAD DAMON APRN 354.2 LESION OF ULNAR NERVE 11/30/2013 ARIAN US PSYD ANN L 354.2 LESION OF ULNAR NERVE 11/30/2013 ARIAN US PSYD ANN L 354.2 LESION OF ULNAR NERVE 11/30/2013 BEVERLY TAO APRN S 354.2 LESION OF ULNAR NERVE 11/30/2013 ARIAN US PSYD L 354.2 LESION OF ULNAR NERVE 11/30/2013 ARIAN US PSYD L 354.2 LESION OF ULNAR NERVE 11/30/2013 ROXANNA RUIZN, CATALINA A 354.2 LESION OF ULNAR NERVE 11/30/2013 ARIAN US PSYD L 354.2 LESION OF ULNAR NERVE 11/30/2013 AIRAN US PSYD L 354.2 LESION OF ULNAR NERVE 11/30/2013 ARIAN US PSYD L 354.2 LESION OF ULNAR NERVE 12/18/2013 ZEHRA SINHA MD Ot 278.00 OBESITY, NOS 12/18/2013 ZEHRA SINHA MD Ot 722.52 LUMB/LUMBOSAC DISC DEGEN 12/18/2013 ZEHRA SINHA MD Ot V58.69 OTH MED,LT,CURRENT USE 12/18/2013 ZEHRA SINHA MD Ot V85.32 BODY MASS INDEX 32.0-32.9, ADULT 02/12/2014 AISLINN OCONNOR, BEVERLY S 626.4 IRREGULAR MENSTRUAL CYCLE 02/12/2014 AISLINN OCONNOR, BEVERLY S V04.81 FLU SHOT 02/12/2014 ROXANNA APRN, CATALINA A 626.4 IRREGULAR MENSTRUAL CYCLE 02/12/2014 ROXANNACARLOS EDUARDO OCONNOR, CATALINA A V04.81 FLU SHOT 02/12/2014 NELSON TAXI PROPRIETOR, JAVAD 626.4 IRREGULAR MENSTRUAL CYCLE 02/12/2014 NELSON TAXI PROPRIETOR, JAVAD V04.81 FLU SHOT 02/12/2014 ARIAN US PSYD L 626.4 IRREGULAR MENSTRUAL CYCLE 02/12/2014 ARIAN US PSYD L V04.81 FLU SHOT 02/12/2014 ARIAN US PSYD L 626.4 IRREGULAR MENSTRUAL CYCLE 02/12/2014 ARIAN US PSYD L V04.81 FLU SHOT 02/12/2014 AISLINN OCONNOR, BEVERLY S 626.4 IRREGULAR MENSTRUAL CYCLE 02/12/2014 AISLINN OCONNOR BEVERLY S V04.81 FLU SHOT 02/12/2014 ARIAN US PSYD L 626.4 IRREGULAR MENSTRUAL CYCLE 02/12/2014 ARIAN US PSYD L V04.81 FLU SHOT 02/12/2014 ARIAN US PSYD L 626.4 IRREGULAR MENSTRUAL CYCLE 02/12/2014 ARIAN US PSYD L V04.81 FLU SHOT 02/12/2014 CATALINA MCKNIGHT APRN A 626.4 IRREGULAR MENSTRUAL CYCLE 02/12/2014 JASMIN MCKNIGHT APRNIDI A V04.81 FLU SHOT 02/12/2014 ARIAN US PSYD L 626.4 IRREGULAR MENSTRUAL CYCLE 02/12/2014 ARIAN US PSYD L V04.81 FLU SHOT 02/12/2014 ARIAN US PSYD L 626.4 IRREGULAR MENSTRUAL CYCLE 02/12/2014 ARIAN US PSYD L V04.81 FLU SHOT 02/12/2014 ARIAN US PSYD 626.4 IRREGULAR MENSTRUAL CYCLE 02/12/2014 ARIAN US PSYD V04.81 FLU SHOT 02/20/2014 JAVAD DAMON APRN 300.00 AN ANXIETY UNSPEC 02/20/2014 ARIAN US PSYD L 300.00 AN ANXIETY UNSPEC 02/20/2014 ARIAN US PSYD L 300.00 AN ANXIETY UNSPEC 02/20/2014 BEVERLY TAO APRN S 300.00 AN ANXIETY UNSPEC 02/20/2014 ARIAN US PSYD L 300.00 AN ANXIETY UNSPEC 02/20/2014 ARIAN US PSYD L 300.00 AN ANXIETY UNSPEC 02/20/2014 ROXANNA RUIZNJASMINCATALINA A 300.00 AN ANXIETY UNSPEC 02/20/2014 ARIAN US PSYD L 300.00 AN ANXIETY UNSPEC 02/20/2014 ARIAN US PSYD L 300.00 AN ANXIETY UNSPEC 02/20/2014 ARIAN US PSYD L 300.00 AN ANXIETY UNSPEC 03/14/2014 ARIAN US PSYD L V62.89 OTHER PSYCHOLOGICAL OR PHYSICAL STRESS NOT ELSEWHERE CLASSIFIED 03/14/2014 BEVERLY TAO APRN S V62.89 OTHER PSYCHOLOGICAL OR PHYSICAL STRESS NOT ELSEWHERE CLASSIFIED 03/14/2014 ARIAN US PSYD L V62.89 OTHER PSYCHOLOGICAL OR PHYSICAL STRESS NOT ELSEWHERE CLASSIFIED 03/14/2014 ARIAN US PSYD ANN L V62.89 OTHER PSYCHOLOGICAL OR PHYSICAL STRESS NOT ELSEWHERE CLASSIFIED 03/14/2014 CATALINA MCKNIGHT APRN V62.89 OTHER PSYCHOLOGICAL OR PHYSICAL STRESS NOT ELSEWHERE CLASSIFIED 03/14/2014 ARIAN US PSYD ANN L V62.89 OTHER PSYCHOLOGICAL OR PHYSICAL STRESS NOT ELSEWHERE CLASSIFIED 03/14/2014 ARIAN US PSYD ANN L V62.89 OTHER PSYCHOLOGICAL OR PHYSICAL STRESS NOT ELSEWHERE CLASSIFIED 03/14/2014 ARIAN US PSYD ANN L V62.89 OTHER PSYCHOLOGICAL OR PHYSICAL STRESS NOT ELSEWHERE CLASSIFIED 03/17/2014 LOREN GAYLE, DELMA T Ot 275.2 DIS MAGNESIUM METABOLISM 03/17/2014 DELMA PIMENTEL MD T Ot 276.8 HYPOPOTASSEMIA 03/17/2014 LOREN GAYLE, DELMA T Ot 722.52 LUMB/LUMBOSAC DISC DEGEN 03/17/2014 DELMA PIMENTEL MD T Ot 780.2 SYNCOPE AND COLLAPSE 03/17/2014 DELMA PIMENTEL MD T Ot 782.0 SKIN SENSATION DISTURB 03/20/2014 BEVERLY TAO APRN S 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 03/20/2014 BEVERLY TAO APRN S 276.8 HYPOPOTASSEMIA 03/20/2014 BEVERLY TAO APRN S 724.4 THORACIC OR LUMBOSACRAL NEURITIS OR RADICULITIS UNSPECIFIED 03/20/2014 ARIAN US PSYD ANN L 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 03/20/2014 ARIAN US PSYD ANN L 276.8 HYPOPOTASSEMIA 03/20/2014 ARIAN US PSYD ANN L 724.4 THORACIC OR LUMBOSACRAL NEURITIS OR RADICULITIS UNSPECIFIED 03/20/2014 ARIAN US PSYD ANN L 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 03/20/2014 ARIAN US PSYD ANN L 276.8 HYPOPOTASSEMIA 03/20/2014 ARIAN US PSYD ANN L 724.4 THORACIC OR LUMBOSACRAL NEURITIS OR RADICULITIS UNSPECIFIED 03/20/2014 ROXANNA OCONNORCATALINA A 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 03/20/2014 ROXANNA OCONNORCATALINA A 276.8 HYPOPOTASSEMIA 03/20/2014 ROXANNA OCONNORCATALINA A 724.4 THORACIC OR LUMBOSACRAL NEURITIS OR RADICULITIS UNSPECIFIED 03/20/2014 ARIAN US PSYD ANN L 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 03/20/2014 ARIAN US PSYD ANN L 276.8 HYPOPOTASSEMIA 03/20/2014 ARIAN US PSYD ANN L 724.4 THORACIC OR LUMBOSACRAL NEURITIS OR RADICULITIS UNSPECIFIED 03/20/2014 ARIAN US PSYD ANN L 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 03/20/2014 AIRAN US PSYD ANN L 276.8 HYPOPOTASSEMIA 03/20/2014 ARIAN US PSYD ANN L 724.4 THORACIC OR LUMBOSACRAL NEURITIS OR RADICULITIS UNSPECIFIED 03/20/2014 ARIAN US PSYD ANN L 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 03/20/2014 ARIAN US PSYD ANN L 276.8 HYPOPOTASSEMIA 03/20/2014 ARIAN US PSYD ANN L 724.4 THORACIC OR LUMBOSACRAL NEURITIS OR RADICULITIS UNSPECIFIED 04/16/2014 Ot 611.71 04/16/2014 DERRELL MEAD HAND LEATHER TRIMMER Ot 454.9 04/16/2014 DERRELL MEAD HAND LEATHER TRIMMER Ot 729.5 04/16/2014 DERRELL MEAD HAND LEATHER TRIMMER Ot 823.80 04/16/2014 DERRELL MEAD HAND LEATHER TRIMMER Ot E928.9 04/16/2014 BEVERLY TAO HAND LEATHER TRIMMER Ot 719.45 04/16/2014 BEVERLY TAO HAND LEATHER TRIMMER Ot 722.10 04/16/2014 BEVERLY TAO HAND LEATHER TRIMMER Ot 786.50 04/16/2014 ZEHRA SINHA MD Ot 278.00 04/16/2014 ZEHRA SINHA MD Ot 722.52 04/16/2014 ZEHRA SINHA MD Ot V58.69 04/16/2014 ZEHRA SINHA MD Ot V85.34 04/16/2014 ZEHRA SINHA MD Ot 278.00 04/16/2014 ZEHRA SINHA MD Ot 722.52 04/16/2014 ZEHRA SINHA MD Ot V58.67 04/16/2014 ZEHRA SINHA MD Ot V58.69 04/16/2014 ZEHRA SINHA MD Ot V85.35 04/16/2014 ZEHRA SINHA MD Ot 278.00 04/16/2014 ZEHRA SINHA MD Ot 722.52 04/16/2014 ZEHRA SINHA MD Ot V58.67 04/16/2014 ZEHRA SINHA MD Ot V58.69 04/16/2014 ZEHRA SINHA MD Ot V85.35 04/20/2014 CATALINA MCKNIGHT APRN A 461.9 SINUSITIS ACUTE 04/20/2014 CATALINA MCKNIGHT APRN A 462 ACUTE PHARYNGITIS 04/20/2014 CATALINA MCKNIGHT APRN A 786.2 COUGH 04/20/2014 ARIAN US PSYD ANN L 461.9 SINUSITIS ACUTE 04/20/2014 ARIAN US PSYD ANN L 462 ACUTE PHARYNGITIS 04/20/2014 ARIAN US PSYD ANN L 786.2 COUGH 04/20/2014 ARIAN US PSYD ANN L 461.9 SINUSITIS ACUTE 04/20/2014 ARIAN US PSYD ANN L 462 ACUTE PHARYNGITIS 04/20/2014 ARIAN US PSYD ANN L 786.2 COUGH 04/20/2014 ARIAN US PSYD ANN L 461.9 SINUSITIS ACUTE 04/20/2014 ARIAN US PSYD ANN L 462 ACUTE PHARYNGITIS 04/20/2014 ARIAN US PSYD ANN L 786.2 COUGH 04/30/2014 Ot 787.01 04/30/2014 Ot 787.91 04/30/2014 Ot 789.1 04/30/2014 Ot 787.01 04/30/2014 Ot 789.07 04/30/2014 Ot 611.71 04/30/2014 CHONG HORTON HAND LEATHER TRIMMER Ot 611.71 04/30/2014 ZEHRA SINHA MD Ot 278.00 04/30/2014 ZEHRA SINHA MD Ot 722.52 04/30/2014 ZEHRA SINHA MD Ot V58.67 04/30/2014 ZEHRA SINHA MD Ot V58.69 04/30/2014 ZEHRA SINHA MD Ot V85.35 05/03/2014 CATALINA MCKNIGHT APRN A V76.10 BREAST CANCER SCREENING 05/03/2014 ARIAN US PSYD ANN L V76.10 BREAST CANCER SCREENING 05/03/2014 ARIAN US PSYD ANN L V76.10 BREAST CANCER SCREENING 05/03/2014 ARIAN US PSYD ANN L V76.10 BREAST CANCER SCREENING 05/07/2014 Ot 611.71 05/07/2014 DERRELL MEAD HAND LEATHER TRIMMER Ot 454.9 05/07/2014 DERRELL MEAD HAND LEATHER TRIMMER Ot 729.5 05/07/2014 DERRELL MEAD HAND LEATHER TRIMMER Ot 823.80 05/07/2014 DERRELL MEAD HAND LEATHER TRIMMER Ot E928.9 05/07/2014 BEVERLY TAO HAND LEATHER TRIMMER Ot 719.45 05/07/2014 BEVERLY TAO HAND LEATHER TRIMMER Ot 722.10 05/07/2014 BEVERLY TAO HAND LEATHER TRIMMER Ot 786.50 05/07/2014 ZEHRA SINHA MD Ot 278.00 05/07/2014 ZEHRA SINHA MD Ot 722.52 05/07/2014 ZEHRA SINHA MD Ot V58.69 05/07/2014 ZEHRA SINHA MD Ot V85.34 05/07/2014 ZEHRA SINHA MD Ot 278.00 05/07/2014 ZEHRA SINHA MD Ot 722.52 05/07/2014 ZEHRA SINHA MD Ot V58.67 05/07/2014 ZEHRA SINHA MD Ot V58.69 05/07/2014 ZEHRA SINHA MD Ot V85.35 05/14/2014 Ot 787.01 05/14/2014 Ot 787.91 05/14/2014 Ot 789.1 05/14/2014 Ot 787.01 05/14/2014 Ot 789.07 05/14/2014 Ot 611.71 05/14/2014 CHONG HORTON HAND LEATHER TRIMMER Ot 611.71 05/14/2014 ZEHRA SINHA MD Ot 278.00 05/14/2014 ZEHRA SINHA MD Ot 722.52 05/14/2014 ZEHRA SINHA MD Ot V58.67 05/14/2014 ZEHRA SINHA MD Ot V58.69 05/14/2014 ZEHRA SINHA MD Ot V85.35 05/14/2014 ZEHRA SINHA MD Ot 278.00 05/14/2014 ZEHRA SINHA MD Ot 722.52 05/14/2014 ZEHRA SINHA MD Ot V58.67 05/14/2014 ZEHRA SINHA MD Ot V58.69 05/14/2014 ZEHRA SINHA MD Ot V85.35 05/14/2014 Ot 611.71 05/14/2014 DERRELL MEAD HAND LEATHER TRIMMER Ot 454.9 05/14/2014 DERRELL MEAD HAND LEATHER TRIMMER Ot 729.5 05/14/2014 DERRELL MEAD HAND LEATHER TRIMMER Ot 823.80 05/14/2014 DERRELL MEAD HAND LEATHER TRIMMER Ot E928.9 05/14/2014 BEVERLY TAO HAND LEATHER TRIMMER Ot 719.45 05/14/2014 BEVERLY TAO HAND LEATHER TRIMMER Ot 722.10 05/14/2014 BEVERLY TAO HAND LEATHER TRIMMER Ot 786.50 05/14/2014 ZEHRA SINHA MD Ot 278.00 05/14/2014 ZEHRA SINHA MD Ot 722.52 05/14/2014 ZEHRA SINHA MD Ot V58.69 05/14/2014 ZEHRA SINHA MD Ot V85.34 05/14/2014 ZEHRA SINHA MD Ot 278.00 05/14/2014 ZEHRA SINHA MD Ot 722.52 05/14/2014 ZEHRA SINHA MD Ot V58.67 05/14/2014 ZEHRA SINHA MD Ot V58.69 05/14/2014 ZEHRA SINHA MD Ot V85.35 05/15/2014 Ot 611.71 05/15/2014 DERRELL MEAD HAND LEATHER TRIMMER Ot 454.9 05/15/2014 DERRELL MEAD HAND LEATHER TRIMMER Ot 729.5 05/15/2014 DERRELL MEAD HAND LEATHER TRIMMER Ot 823.80 05/15/2014 DERRELL MEAD HAND LEATHER TRIMMER Ot E928.9 05/15/2014 BEVERLY TAO HAND LEATHER TRIMMER Ot 719.45 05/15/2014 BEVERLY TAO HAND LEATHER TRIMMER Ot 722.10 05/15/2014 BEVERLY TAO HAND LEATHER TRIMMER Ot 786.50 05/15/2014 ZEHRA SINHA MD Ot 278.00 05/15/2014 ZEHRA SINHA MD Ot 722.52 05/15/2014 ZEHRA SINHA MD Ot V58.69 05/15/2014 ZEHRA SINHA MD Ot V85.34 05/15/2014 ZEHRA SINHA MD Ot 278.00 05/15/2014 ZEHRA SINHA MD Ot 722.52 05/15/2014 ZEHRA SINHA MD Ot V58.67 05/15/2014 ZEHRA SINHA MD Ot V58.69 05/15/2014 ZEHRA SINHA MD Ot V85.35 05/17/2014 CATALINA MCKNIGHT APRN Ot V76.12 05/17/2014 CATALINA MCKNIGHT APRN Ot V76.12 05/25/2014 ZEHRA SINHA MD Ot 278.00 05/25/2014 ZEHRA SINHA MD Ot 722.52 05/25/2014 ZEHRA SINHA MD Ot V58.67 05/25/2014 ZEHRA SINHA MD Ot V58.69 05/25/2014 ZEHRA SINHA MD Ot V85.35 05/25/2014 CATALINA MCKNIGHT APRN Ot V76.12 07/18/2014 CATALINA MCKNIGHT TAXI PROPRIETOR Ot V76.12 07/18/2014 Ot 787.01 07/18/2014 Ot 787.91 07/18/2014 Ot 789.1 07/18/2014 Ot 787.01 07/18/2014 Ot 789.07 07/18/2014 Ot 611.71 07/18/2014 CHONG HORTON HAND LEATHER TRIMMER Ot 611.71 07/18/2014 CATALINA MCKNIGHT TAXI PROPRIETOR Ot V76.12 08/15/2014 CATALINA MCKNIGHT APRN Ot V76.12 08/15/2014 ZEHRA SINHA MD Ot 278.00 08/15/2014 ZEHRA SINHA MD Ot 722.52 08/15/2014 ZEHRA SINHA MD Ot V58.67 08/15/2014 ZEHRA SINHA MD Ot V58.69 08/15/2014 ZEHRA SINHA MD Ot V85.35 08/15/2014 CATALINA MCKNIGHT APRN Ot V76.12 08/15/2014 SWEET PA, DELMA R Ot 724.5 08/15/2014 SWEET PA, DELMA R Ot 729.2 08/15/2014 SWEET PA, DELMA R Ot V57.1 08/28/2014 CATALINA MCKNIGHT TAXI PROPRIETOR Ot V76.12 08/29/2014 SWEET PA, DELMA R Ot 724.5 08/29/2014 SWEET PA, DELMA R Ot 729.2 08/29/2014 SWEET PA, DELMA R Ot V57.1 09/12/2014 CATALINA MCKNIGHT APRN Ot V76.12 09/18/2014 SWEET PA, DELMA R Ot 724.5 09/18/2014 SWEET PA, DELMA R Ot 729.2 09/18/2014 SWEET PA, DELMA R Ot V57.1 09/19/2014 SWEET PA, DELMA R Ot 724.5 BACKACHE NOS 09/19/2014 SWEET PA, DELMA R Ot 729.2 NEURALGIA/NEURITIS NOS 09/19/2014 SWEET PA, DELMA R Ot V57.1 PHYSICAL THERAPY NEC 10/13/2014 ZEHRA SINHA MD Ot 278.00 10/13/2014 ZEHRA SINHA MD Ot 722.52 10/13/2014 ZEHRA SINHA MD Ot V58.67 10/13/2014 ZEHRA SINHA MD Ot V58.69 10/13/2014 ZEHRA SINHA MD Ot V85.35 10/13/2014 CATALINA MCKNIGHT APRN Ot V76.12 10/13/2014 TYREE HENNESSY MD Ot 998.13 SEROMA COMPLICAT A PROC 10/13/2014 TYREE HENNESSY MD Ot 998.32 DISRUPTION OF EXTERNAL OPERATION (SURGIC 10/23/2014 Ot 787.01 10/23/2014 Ot 787.91 10/23/2014 Ot 789.1 10/23/2014 Ot 787.01 10/23/2014 Ot 789.07 10/23/2014 Ot 611.71 10/23/2014 CHONG HORTON Byron FARMER Ot 611.71 10/26/2014 CATALINA MCKNIGHT APRN Ot V76.12 05/15/2015 ZEHRA SINHA MD Ot 278.00 05/15/2015 ZEHRA SINHA MD Ot 722.52 05/15/2015 ZEHRA SINHA MD Ot V58.67 05/15/2015 ZEHRA SINHA MD Ot V58.69 05/15/2015 ZEHRA SINHA MD Ot V85.35 05/15/2015 CATALINA MCKNIGHT APRN Ot V76.12 05/15/2015 ZEHRA SINHA MD Ot 278.00 05/15/2015 ZEHRA SINHA MD Ot 722.52 05/15/2015 ZEHRA SINHA MD Ot V58.67 05/15/2015 ZEHRA SINHA MD Ot V58.69 05/15/2015 ZEHRA SINHA MD Ot V85.35 05/15/2015 CATALINA MCKNIGHT APRN Ot V76.12 05/20/2015 BEVERLY TAO Ot Z12.31 06/06/2015 ZEHRA SINHA MD Ot 278.00 06/06/2015 ZEHRA SINHA MD Ot 722.52 06/06/2015 ZEHRA SINHA MD Ot V58.67 06/06/2015 ZEHRA SINHA MD Ot V58.69 06/06/2015 ZEHRA SINHA MD Ot V85.35 06/06/2015 CATALINA MCKNIGHT APRN Ot V76.12 06/06/2015 BEVERLY TAO Ot Z12.31 06/06/2015 ANGIE KIRKPATRICK Ot E11.9 TYPE 2 DIABETES MELLITUS WITHOUT COMPLIC 06/06/2015 ANGIE KIRKPATRICK Ot L25.9 UNSPECIFIED CONTACT DERMATITIS, UNSPECIF 06/06/2015 ANGIE KIRKPATRICK Ot 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 06/06/2015 ZEHRA SINHA MD Ot 278.00 06/06/2015 ZEHRA SINHA MD Ot 722.52 06/06/2015 ZEHRA SINHA MD, Ot V58.67 06/06/2015 ZEHRA SINHA MD Ot V58.69 06/06/2015 ZEHRA SINHA MD Ot V85.35 06/06/2015 CATALINA MCKNIGHT APRN Ot V76.12 06/06/2015 BEVERLY TAO Ot Z12.31 06/07/2015 ANGIE KIRKPATRICK Ot E11.9 06/07/2015 ANGIE KIRKPATRICK Ot L25.9 06/07/2015 ANGIE KIRKPATRICK Ot Z79.4 08/21/2015 ZEHRA SINHA MD Ot 278.00 OBESITY, NOS 08/21/2015 ZEHRA SINHA MD Ot 722.52 LUMB/LUMBOSAC DISC DEGEN 08/21/2015 ZEHRA SINHA MD Ot V58.67 LONG-TERM (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 OF INSULIN 08/21/2015 ZEHRA SINHA MD Ot V58.69 OT MED,LT,CURRENT USE 08/21/2015 ZEHRA SINHA MD Ot V85.35 BODY MASS INDEX 35.0-35.9, ADULT 08/21/2015 CATALINA MCKNIGHT APRN Ot V76.12 OTH SCREEN MAMMO-MALIGN NEOPLASM OF CHRISTOPHER 08/21/2015 BEVERLY TAO Ot Z12.31 ENCNTR SCREEN MAMMOGRAM FOR MALIGNANT NE 08/21/2015 Ot 787.01 NAUSEA WITH VOMITING 08/21/2015 Ot 787.91 DIARRHEA 08/21/2015 Ot 789.1 HEPATOMEGALY 08/21/2015 Ot 787.01 NAUSEA WITH VOMITING 08/21/2015 Ot 789.07 ABDOMINAL PAIN, GENERALIZED 08/21/2015 Ot 611.71 MASTODYNIA 08/21/2015 CHONG HORTON HAND LEATHER TRIMMER Ot 611.71 MASTODYNIA 08/21/2015 Ot 787.01 NAUSEA WITH VOMITING 08/21/2015 Ot 787.91 DIARRHEA 08/21/2015 Ot 789.1 HEPATOMEGALY 08/21/2015 Ot 787.01 NAUSEA WITH VOMITING 08/21/2015 Ot 789.07 ABDOMINAL PAIN, GENERALIZED 08/21/2015 Ot 611.71 MASTODYNIA 08/21/2015 CHONG HORTON HAND LEATHER TRIMMER Ot 611.71 MASTODYNIA 08/23/2015 ZEHRA SINHA MD Ot M51.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 DISC DISORDERS W RADICULO 08/23/2015 ZEHRA SINHA MD Ot Z79.899 OTHER RETIREMENT (CURRENT) DRUG THERAPY 09/05/2015 ZEHRA SINHA MD, Ot M51.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 DISC DISORDERS W RADICULO 09/05/2015 ZEHRA SINHA MD, Ot Z79.899 OTHER NET MAKING SUPERVISOR (CURRENT) DRUG THERAPY 09/11/2015 ANGIE KIRKPATRICK Ot E11.9 TYPE 2 DIABETES MELLITUS WITHOUT COMPLIC 09/11/2015 ANGIE KIRKPATRICK Ot L25.9 UNSPECIFIED CONTACT DERMATITIS, UNSPECIF 09/11/2015 ANGIE KIRKPATRICK Ot 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 09/11/2015 ZEHRA SINHA MD, Ot M51.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 DISC DISORDERS W RADICULO 09/11/2015 ZEHRA SINHA MD, Ot Z79.899 OTHER NET MAKING SUPERVISOR (CURRENT) DRUG THERAPY 11/12/2015 ANGIE KIRKPATRICK Ot G89.29 OTHER CHRONIC PAIN 11/12/2015 ANGIE KIRKPATRICK Ot M54.5 LOW BACK PAIN 11/14/2015 ANGIE KIRKPATRICK Ot G89.29 OTHER CHRONIC PAIN 11/14/2015 ANGIE KIRKPATRICK Ot M54.5 LOW BACK PAIN 11/22/2015 ANGIE KIRKPATRICK Ot G89.29 OTHER CHRONIC PAIN 11/22/2015 ANGIE KIRKPATRICK Ot M54.5 LOW BACK PAIN 2016 SOCO JOAQUIN APRN Ot E11.9 TYPE 2 DIABETES MELLITUS WITHOUT COMPLIC 2016 SOCO JOAQUIN APRN Ot I10 ESSENTIAL (PRIMARY) HYPERTENSION 2016 SOCO JOAQUIN APRN Ot M25.552 PAIN IN LEFT HIP 2016 SOCO JOAQUIN APRN Ot M54.5 LOW BACK PAIN 2016 SOCO JOAQUIN APRN Ot M79.605 PAIN IN LEFT LEG 2016 SOCO JOAQUIN TAXI PROPRIETOR Ot R20.2 PARESTHESIA OF SKIN 2016 SOCO JOAQUIN TAXI PROPRIETOR Ot Z79.4 RETIREMENT (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 OF INSULIN 2016 SOCO JOAQUIN TAXI PROPRIETOR Ot Z79.82 NET MAKING 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 ASPIRIN 2016 SOCO JOAQUIN TAXI PROPRIETOR Ot Z79.899 OTHER NET MAKING SUPERVISOR (CURRENT) DRUG THERAPY 03/05/2016 SOCO JOAQUIN TAXI PROPRIETOR Ot E11.9 TYPE 2 DIABETES MELLITUS WITHOUT COMPLIC 03/05/2016 SOCO JOAQUIN TAXI PROPRIETOR Ot I10 ESSENTIAL (PRIMARY) HYPERTENSION 03/05/2016 SOCO JOAQUIN TAXI PROPRIETOR Ot M25.552 PAIN IN LEFT HIP 03/05/2016 SOCO JOAQUIN TAXI PROPRIETOR Ot M54.5 LOW BACK PAIN 03/05/2016 SOCO JOAQUIN TAXI PROPRIETOR Ot M79.605 PAIN IN LEFT LEG 03/05/2016 SOCO JOAQUIN TAXI PROPRIETOR Ot R20.2 PARESTHESIA OF SKIN 03/05/2016 SOCO JOAQUIN TAXI PROPRIETOR Ot Z79.4 RETIREMENT (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 OF INSULIN 03/05/2016 SOCO JOAQUIN TAXI PROPRIETOR Ot Z79.82 NET MAKING 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 ASPIRIN 03/05/2016 SOCO JOAQUIN TAXI PROPRIETOR Ot Z79.899 OTHER NET MAKING SUPERVISOR (CURRENT) DRUG THERAPY 03/10/2016 SOCO JOAQUIN TAXI PROPRIETOR Ot E11.9 TYPE 2 DIABETES MELLITUS WITHOUT COMPLIC 03/10/2016 SOCO JOAQUIN TAXI PROPRIETOR Ot I10 ESSENTIAL (PRIMARY) HYPERTENSION 03/10/2016 SOCO JOAQUIN TAXI PROPRIETOR Ot M25.552 PAIN IN LEFT HIP 03/10/2016 SOCO JOAQUIN TAXI PROPRIETOR Ot M54.5 LOW BACK PAIN 03/10/2016 SOCO JOAQUIN TAXI PROPRIETOR Ot M79.605 PAIN IN LEFT LEG 03/10/2016 SOCO JOAQUIN TAXI PROPRIETOR Ot R20.2 PARESTHESIA OF SKIN 03/10/2016 SOCO OJAQUIN TAXI PROPRIETOR Ot Z79.4 RETIREMENT (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 OF INSULIN 03/10/2016 SOCO JOAQUIN TAXI PROPRIETOR Ot Z79.82 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 MAKING 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 ASPIRIN 03/10/2016 SOCO JOAQUIN TAXI PROPRIETOR Ot Z79.899 OTHER RETIREMENT (CURRENT) DRUG THERAPY 03/18/2016 Ot 787.01 NAUSEA WITH VOMITING 03/18/2016 Ot 787.91 DIARRHEA 03/18/2016 Ot 789.1 HEPATOMEGALY 03/18/2016 Ot 787.01 NAUSEA WITH VOMITING 03/18/2016 Ot 789.07 ABDOMINAL PAIN, GENERALIZED 03/18/2016 Ot 611.71 MASTODYNIA 03/18/2016 CHONG HORTONP Ot 611.71 MASTODYNIA 03/18/2016 ZEHRA SINHA MD Ot M54.5 LOW BACK PAIN 03/18/2016 Ot 787.01 NAUSEA WITH VOMITING 03/18/2016 Ot 787.91 DIARRHEA 03/18/2016 Ot 789.1 HEPATOMEGALY 03/18/2016 Ot 787.01 NAUSEA WITH VOMITING 03/18/2016 Ot 789.07 ABDOMINAL PAIN, GENERALIZED 03/18/2016 Ot 611.71 MASTODYNIA 03/18/2016 CHONG HORTON HAND LEATHER TRIMMER Ot 611.71 MASTODYNIA 03/19/2016 ANGIE KIRKPATRICK Ot G89.29 OTHER CHRONIC PAIN 03/19/2016 ANGIE KIRKPATRICK Ot M54.5 LOW BACK PAIN 03/20/2016 Ot 787.01 NAUSEA WITH VOMITING 03/20/2016 Ot 787.91 DIARRHEA 03/20/2016 Ot 789.1 HEPATOMEGALY 03/20/2016 Ot 787.01 NAUSEA WITH VOMITING 03/20/2016 Ot 789.07 ABDOMINAL PAIN, GENERALIZED 03/20/2016 Ot 611.71 MASTODYNIA 03/20/2016 CHONG HORTON HAND LEATHER TRIMMER Ot 611.71 MASTODYNIA 03/20/2016 ZEHRA SINHA MD Ot E11.9 TYPE 2 DIABETES MELLITUS WITHOUT COMPLIC 03/20/2016 ZEHRA SINHA MD Ot M51.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 DISC DISORDERS W RADICULO 03/20/2016 ZEHRA SINHA MD Ot Z79.4 RETIREMENT (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 OF INSULIN 04/01/2016 ZEHRA SINHA MD Ot E11.9 TYPE 2 DIABETES MELLITUS WITHOUT COMPLIC 04/01/2016 ZEHRA SINHA MD Ot M51.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 DISC DISORDERS W RADICULO 04/01/2016 ZEHRA SINHA MD Ot Z79.4 RETIREMENT (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 OF INSULIN 04/10/2016 ZEHRA SINHA MD Ot M54.5 LOW BACK PAIN 04/22/2016 ZEHRA SINHA MD Ot M54.5 LOW BACK PAIN 05/01/2016 ZEHRA SINHA MD, Ot M54.5 LOW BACK PAIN 05/05/2016 ZEHRA SINHA MD Ot E11.9 TYPE 2 DIABETES MELLITUS WITHOUT COMPLIC 05/05/2016 ZEHRA SINHA MD Ot M51.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 DISC DISORDERS W RADICULO 05/05/2016 ZEHRA SINHA MD Ot Z79.4 RETIREMENT (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 OF INSULIN 06/02/2016 SOCO JOAQUIN APRN Ot E11.65 TYPE 2 DIABETES MELLITUS WITH HYPERGLYCE 06/02/2016 SOCO JOAQUIN APRN Ot N39.0 URINARY TRACT INFECTION, SITE NOT SPECIF 06/02/2016 SOCO JOAQUIN APRN Ot R10.13 EPIGASTRIC PAIN 06/02/2016 SOCO JOAQUIN APRN Ot 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 06/02/2016 SOCO JOAQUIN APRN Ot Z79.82 NET MAKING 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 ASPIRIN 06/02/2016 SOCO JOAQUIN APRN Ot Z79.84 RETIREMENT (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 OF ORAL HYPOGLYC 06/02/2016 SOCO JOAQUIN APRN Ot Z79.899 OTHER RETIREMENT (CURRENT) DRUG THERAPY 06/03/2016 ZEHRA SINHA MD Ot M54.5 LOW BACK PAIN 06/04/2016 SOCO JOAQUIN APRN Ot E11.65 TYPE 2 DIABETES MELLITUS WITH HYPERGLYCE 06/04/2016 SOCO JOAQUIN APRN Ot N39.0 URINARY TRACT INFECTION, SITE NOT SPECIF 06/04/2016 SOCO JOAQUIN APRN Ot R10.13 EPIGASTRIC PAIN 06/04/2016 SOCO JOAQUIN APRN Ot 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 06/04/2016 SOCO JOAQUIN APRN Ot Z79.82 RETIREMENT (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 OF ASPIRIN 06/04/2016 SOCO JOAQUIN APRN Ot Z79.84 RETIREMENT (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 OF ORAL HYPOGLYC 06/04/2016 SOCO JOAQUIN APRN Ot Z79.899 OTHER NET MAKING SUPERVISOR (CURRENT) DRUG THERAPY 06/22/2016 ZEHRA SINHA MD, Ot M54.5 LOW BACK PAIN 07/15/2016 ZEHRA SINHA MD, Ot M54.5 LOW BACK PAIN 08/14/2016 SOCO JOAQUIN APRN Ot E11.9 TYPE 2 DIABETES MELLITUS WITHOUT COMPLIC 08/14/2016 SOCO JOAQUIN APRN Ot M54.5 LOW BACK PAIN 08/14/2016 SOCO JOAQUIN APRN Ot Z79.4 RETIREMENT (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 OF INSULIN 08/14/2016 SOCO JOAQUIN APRN Ot Z79.82 RETIREMENT (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 OF ASPIRIN 08/14/2016 SOCO JOAQUIN APRN Ot Z79.84 RETIREMENT (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 OF ORAL HYPOGLYC 08/14/2016 SOCO JOAQUIN APRN Ot Z79.899 OTHER NET MAKING 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 (CURRENT) DRUG THERAPY 09/03/2016 Ot 787.01 NAUSEA WITH VOMITING 09/03/2016 Ot 787.91 DIARRHEA 09/03/2016 Ot 789.1 HEPATOMEGALY 09/03/2016 Ot 787.01 NAUSEA WITH VOMITING 09/03/2016 Ot 789.07 ABDOMINAL PAIN, GENERALIZED 09/03/2016 Ot 611.71 MASTODYNIA 09/03/2016 CHONG HORTON HAND LEATHER TRIMMER Ot 611.71 MASTODYNIA 09/03/2016 ZEHRA SINHA MD Ot M54.5 LOW BACK PAIN 09/04/2016 Ot 787.01 NAUSEA WITH VOMITING 09/04/2016 Ot 787.91 DIARRHEA 09/04/2016 Ot 789.1 HEPATOMEGALY 09/04/2016 Ot 787.01 NAUSEA WITH VOMITING 09/04/2016 Ot 789.07 ABDOMINAL PAIN, GENERALIZED 09/04/2016 Ot 611.71 MASTODYNIA 09/04/2016 CHONG HORTON HAND LEATHER TRIMMER Ot 611.71 MASTODYNIA 09/04/2016 ZEHRA SINHA MD Ot M54.5 LOW BACK PAIN 09/11/2016 SOCO JOAQUIN APRN Ot E11.65 TYPE 2 DIABETES MELLITUS WITH HYPERGLYCE 09/11/2016 SOCO JOAQUIN APRN Ot N39.0 URINARY TRACT INFECTION, SITE NOT SPECIF 09/11/2016 SOCO JOAQUIN APRN Ot R10.13 EPIGASTRIC PAIN 09/11/2016 SOCO JOAQUIN APRN Ot Z79.4 RETIREMENT (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 OF INSULIN 09/11/2016 SOCO JOAQUIN APRN Ot Z79.82 RETIREMENT (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 OF ASPIRIN 09/11/2016 SOCO JOAQUIN APRN Ot Z79.84 RETIREMENT (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 OF ORAL HYPOGLYC 09/11/2016 JOAQUINSOCO TAXI PROPRIETOR Ot Z79.899 OTHER RETIREMENT (CURRENT) DRUG THERAPY 09/21/2016 BEVERLY TAO Ot M54.9 DORSALGIA, UNSPECIFIED 10/02/2016 BEVERLY TAO Ot M54.9 DORSALGIA, UNSPECIFIED Procedures Code Description [place] [address] A1C (IN-HOUSE) 01/07/2012 07388 ROUTINE VENIPUNCTURE 02/05/2012 76933 MICRO ALBUMIN-IN HOUSE 02/05/2012 14790 CMP 02/05/2012 [id number] GFR CALC (RESULT ONLY) 02/05/2012 63225 LIPID PANEL 02/05/2012 41103 MICROALBUMIN 02/06/2012 73170 INDIV PSYTX 45/50 MIN 02/08/2012 61858 GLUCOSE 02/15/2012 07646 INDIV PSYTX 45/50 MIN 02/15/2012 37242 INDIV PSYTX 45/50 MIN 02/29/2012 94308 INDIV PSYTX 45/50 MIN 03/14/2012 58140 US BREAST(S) ULTRASOUND, BOTH 04/06/2012 42035 INDIV PSYTX 45/50 MIN 04/07/2012 62193 PSYTX PT&/FAMILY 45 MINUTES 04/07/2012 38695 MAMMOGRAM DX, LARRY 04/11/2012 33094 MAMMOGRAM, SCREENING 04/11/2012 18757 PSYTX PT&/FAMILY 45 MINUTES 04/11/2012 33825 PSYTX PT&/FAMILY 45 MINUTES 05/02/2012 15143 PSYTX PT&/FAMILY 45 MINUTES 05/06/2012 80605 PSYTX PT&/FAMILY 45 MINUTES 05/20/2012 38156 A1C (IN-HOUSE) 05/30/2012 92473 PSYTX PT&/FAMILY 45 MINUTES 06/22/2012 53553 PSYTX PT&/FAMILY 45 MINUTES 07/20/2012 96696 GLUCOSE FINGER STICK 08/05/2012 72480 MICRO ALBUMIN-IN HOUSE 08/25/2012 88298 A1C (IN-HOUSE) 08/25/2012 14029 MICROALBUMIN 08/25/2012 75876 ROUTINE VENIPUNCTURE 08/26/2012 31184 CMP 08/26/2012 25430 LIPID PANEL 08/26/2012 [id number] GFR CALC (RESULT ONLY) 08/26/2012 04735 CBC 08/26/2012 14345 PSYTX PT&/FAMILY 45 MINUTES 09/06/2012 71103 PSYTX PT&/FAMILY 30 MINUTES 11/10/2012 31407 PSYTX PT&/FAMILY 45 MINUTES 11/10/2012 18302 OXIMETRY 12/07/2012 31792 PSYTX PT&/FAMILY 45 MINUTES 12/22/2012 59884 PSYTX PT&/FAMILY 45 MINUTES 01/05/2013 73403 A1C (IN-HOUSE) 01/09/2013 33633 PSYTX PT&/FAMILY 45 MINUTES 03/08/2013 75482 MAMMOGRAM, SCREENING 03/09/2013 46170 PSYTX PT&/FAMILY 45 MINUTES 04/25/2013 04697 EXCISION BENIGN LESION 0.6- 1 cm (spcify location in [facility] description) 04/26/2013 27718 PSYTX PT&/FAMILY 45 MINUTES 05/05/2013 62558 PSYTX PT&/FAMILY 45 MINUTES 05/19/2013 88536 ROUTINE VENIPUNCTURE 06/05/2013 09253 A1C (IN-HOUSE) 06/05/2013 71826 UA LONG DIP 06/05/2013 07550 MICRO ALBUMIN-IN HOUSE 06/05/2013 20874 CBC 06/05/2013 92590 CMP 06/05/2013 74980 LIPID PANEL 06/05/2013 40303 MICROALBUMIN 06/05/2013 [id number] GFR CALC (RESULT ONLY) 06/05/2013 54802 LIPASE 06/05/2013 76210 PSYTX PT&/FAMILY 30 MINUTES 06/21/2013 33190 PSYTX PT&/FAMILY 45 MINUTES 06/27/2013 95801 PSYTX PT&/FAMILY 45 MINUTES 07/11/2013 00491 XRAY LUMBAR SPINE 2 OR 3 VIEWS 07/17/2013 86158 XRAY HIP LEFT UNILATERAL MIN 2 VIEWS 07/17/2013 10920 XRAY TIBULA FIBULA LEFT 07/17/2013 ORTHOPEDDERRELL XIE 07/17/2013 01725 PSYTX PT&/FAMILY 45 MINUTES 08/02/2013 98975 MRI EXTREMITY, LOWER LEFT, W /O CONTRAST 08/17/2013 63452 PSYTX PT&/FAMILY 45 MINUTES 09/05/2013 74827 MRI SPINE (LUMBAR) W/O CONTRAST 09/11/2013 31592 A1C (IN-HOUSE) 09/11/2013 70755 PSYTX PT&/FAMILY 45 MINUTES 09/26/2013 74767 PSYTX PT&/FAMILY 45 MINUTES 10/09/2013 54076 PSYTX PT&/FAMILY 30 MINUTES 11/13/2013 93493 PSYTX PT&/FAMILY 30 MINUTES 12/21/2013 25270 PSYTX PT&/FAMILY 45 MINUTES 01/04/2014 75065 PSYTX PT&/FAMILY 45 MINUTES 02/01/2014 62764 A1C (IN-HOUSE) 02/12/2014 00950 MICRO ALBUMIN-IN HOUSE 02/12/2014 18090 TEST, URINE (IN- HOUSE) 02/12/2014 74381 MICROALBUMIN 02/13/2014 76804 ROUTINE VENIPUNCTURE 02/15/2014 23836 PSYTX PT&/FAMILY 45 MINUTES 02/15/2014 67805 LIPID PANEL 02/15/2014 89987 CBC 02/15/2014 88996 CMP 02/15/2014 [id number] GFR CALC (RESULT ONLY) 02/15/2014 75882 TSH 02/15/2014 68180 TEST, URINE (IN- HOUSE) 02/19/2014 73477 PSYTX PT&/FAMILY 45 MINUTES 03/08/2014 90737 PSYTX PT&/FAMILY 30 MINUTES 03/14/2014 02846 ROUTINE VENIPUNCTURE 03/20/2014 12173 CBC 03/20/2014 53493 MAGNESIUM 03/20/2014 88587 PSYTX PT&/FAMILY 45 MINUTES 04/10/2014 69286 PSYTX PT&/FAMILY 45 MINUTES 04/18/2014 61869 MAMMOGRAM, SCREENING 05/03/2014 90031 PSYTX PT&/FAMILY 30 MINUTES 05/08/2014 02675 A1C (IN-HOUSE) 06/26/2014 MARIO CARDONA 07/16/2014 34074 PSYTX PT&/FAMILY 30 MINUTES 07/16/2014 Results Test Result Range Capillary blood glucose measurement by glucometer (mass/volume) - 03/20/16 08: 42 Capillary blood glucose measurement by glucometer (mass/volume) 302 mg/dL 70-110 Complete urinalysis with reflex to culture - 06/02/16 11:55 Urine color determination YELLOW NRG Urine clarity determination VERY CLOUDY NRG Urine pH measurement by test strip 5 5-9 Specific gravity of urine by test strip 1.010 1.016- 1.022 Urine protein assay by test strip, semi-quantitative 2+ NEGATIVE Urine glucose detection by automated test strip 4+ NEGATIVE Erythrocytes detection in urine sediment by light microscopy 5+ NEGATIVE Urine ketones detection by automated test strip 4+ NEGATIVE Urine nitrite detection by test strip POSITIVE NEGATIVE Urine total bilirubin detection by test strip NEGATIVE NEGATIVE Urine urobilinogen measurement by automated test strip (mass/volume) NORMAL NORMAL Urine leukocyte esterase detection by dipstick 2+ NEGATIVE Automated urine sediment erythrocyte count by microscopy (number/high power field) TNTC NRG Automated urine sediment leukocyte count by microscopy (number/high power field ) [HPF] NRG Bacteria detection in urine sediment by light microscopy MODERATE NRG Squamous epithelial cells detection in urine sediment by light microscopy NONE NRG Crystals detection in urine sediment by light microscopy NONE NRG Casts detection in urine sediment by light microscopy NONE NRG Mucus detection in urine sediment by light microscopy NEGATIVE NRG Complete urinalysis with reflex to culture YES NRG Bacterial urine culture - 06/02/16 11:55 Bacterial urine culture [id number] NRG COLONY COUNT <10,000 NRG FTX;REPORTABLE PLUS, NRG FREE TEXT ENTRY 2 MIXED GRAM POSITIVES <10,000/ML NR Bacterial susceptibility panel - 06/02/16 11:55 Gentamicin susceptibility test by minimum inhibitory concentration < = NRG Trimethoprim/sulfamethoxazole susceptibility test by minimum inhibitoryconcentration <= NRG Ampicillin susceptibility test by minimum inhibitory concentration > = NRG Tobramycin susceptibility test by minimum inhibitory concentration < = NRG Cefazolin susceptibility test by minimum inhibitory concentration < = NRG Ceftriaxone susceptibility test by minimum inhibitory concentration <= NRG Ampicillin/sulbactam susceptibility test by minimum inhibitory concentration 16 NRG Piperacillin/tazobactam susceptibility test by minimum inhibitory concentration <= NRG Ciprofloxacin susceptibility test by minimum inhibitory concentration <= NRG Meropenem susceptibility test by minimum inhibitory concentration < = NRG Nitrofurantoin susceptibility test by minimum inhibitory concentration <= NRG Aztreonam susceptibility test by minimum inhibitory concentration < = NRG Extended spectrum beta lactamase (ESBL) producing bacteria susceptibility test by minimum inhibitory concentration - NRG Complete blood count (CBC) with automated white blood cell (WBC) differential - 06/02/16 12:40 Blood leukocytes automated count (number/volume) 9.0 10*3/uL 4.3-11.0 Blood erythrocytes automated count (number/volume) 5.11 10*6/uL 4.35-5.85 Venous blood hemoglobin measurement (mass/volume) 14.6 g/dL 11.5-16.0 Blood hematocrit (volume fraction) 42 % 35-52 Automated erythrocyte mean corpuscular volume 82 [foz_us] 80-99 Automated erythrocyte mean corpuscular hemoglobin (mass per erythrocyte) 29 pg 25-34 Automated erythrocyte mean corpuscular hemoglobin concentration measurement ( mass/volume) 35 g/dL 32-36 Automated erythrocyte distribution width ratio 13.3 % 10.0-14.5 Automated blood platelet count (count/volume) 249 10*3/uL 130-400 Automated blood platelet mean volume measurement 10.4 [foz_us] 7.4-10.4 Automated blood neutrophils/100 leukocytes 60 % 42-75 Automated blood lymphocytes/100 leukocytes 30 % 12-44 Blood monocytes/100 leukocytes 7 % 0-12 Automated blood eosinophils/100 leukocytes 2 % 0-10 Automated blood basophils/100 leukocytes 1 % 0-10 Blood neutrophils automated count (number/volume) 5.4 10*3 1.8-7.8 Blood lymphocytes automated count (number/volume) 2.7 10*3 1.0-4.0 Blood monocytes automated count (number/volume) 0.6 10*3 0.0-1.0 Automated eosinophil count 0.2 10*3/uL 0.0-0.3 Automated blood basophil count (count/volume) 0.1 10*3/uL 0.0-0.1 Comprehensive metabolic panel - 06/02/16 12:40 Serum or plasma sodium measurement (moles/volume) 136 mmol/L 135-145 Serum or plasma potassium measurement (moles/volume) 4.0 mmol/L 3.6-5.0 Serum or plasma chloride measurement (moles/volume) 104 mmol/L 98-107 Carbon dioxide 18 mmol/L 21-32 Serum or plasma anion gap determination (moles/volume) 14 mmol/L 5-14 Serum or plasma urea nitrogen measurement (mass/volume) 11 mg/dL 7-18 Serum or plasma creatinine measurement (mass/volume) 0.72 mg/dL 0.60-1.30 Serum or plasma urea nitrogen/creatinine mass ratio 15 NRG Serum or plasma creatinine measurement with calculation of estimated glomerular filtration rate > NRG Serum or plasma glucose measurement (mass/volume) 422 mg/dL 70-105 Serum or plasma calcium measurement (mass/volume) 9.0 mg/dL 8.5-10.1 Serum or plasma total bilirubin measurement (mass/volume) 0.3 mg/dL 0.1-1.0 Serum or plasma alkaline phosphatase measurement (enzymatic activity/volume) 106 U/L 40-136 Serum or plasma aspartate aminotransferase measurement (enzymatic activity/ volume) 15 U/L 5-34 Serum or plasma alanine aminotransferase measurement (enzymatic activity/volume ) 22 U/L 0-55 Serum or plasma protein measurement (mass/volume) 7.3 g/dL 6.4-8.2 Serum or plasma albumin measurement (mass/volume) 3.9 g/dL 3.2-4.5 Serum or plasma amylase measurement (enzymatic activity/volume) - 06/02/16 12: 40 Serum or plasma amylase measurement (enzymatic activity/volume) 13 U /L 25-125 Lipase - 06/02/16 12:40 Lipase 41 U/L 8-78 Encounters ACCT No. Visit Date/Time Discharge Status Pt. Type Provider Facility Loc./Unit Complaint [id number] 07/16/2014 12:51:00 07/16/2014 23:59:59 CLS Outpatient ARIAN US PSYD [id number] 06/05/2014 10:16:00 06/05/2014 23:59:59 CLS Outpatient ARIAN US PSYD [id number] 05/08/2014 10:38:00 05/08/2014 23:59:59 CLS Outpatient ARIAN US PSYD [id number] 05/03/2014 15:40:00 05/03/2014 23:59:59 CLS Outpatient CATALINA MCKNIGHT APRN [id number] 04/18/2014 08:38:00 04/18/2014 23:59:59 CLS Outpatient ARIAN US PSYD [id number] 04/10/2014 10:26:00 04/10/2014 23:59:59 CLS Outpatient ARIAN US PSYD [id number] 03/20/2014 14:34:00 03/20/2014 23:59:59 CLS Outpatient AISLINNCHICHI OCONNORBEVERLY Nick [id number] 03/14/2014 16:06:00 03/14/2014 23:59:59 CLS Outpatient ARIAN US PSYD L [id number] 03/08/2014 08:16:00 03/08/2014 23:59:59 CLS Outpatient ARIAN US PSYD L [id number] 02/20/2014 12:44:00 02/20/2014 23:59:59 CLS Outpatient JAVAD DAMON APRN [id number] 02/19/2014 15:05:00 02/19/2014 23:59:59 CLS Outpatient ROXANNA ANASTASIA CATALINA A [id number] 02/15/2014 08:52:00 02/15/2014 23:59:59 CLS Outpatient BEVERLY TAO APRN [id number] 02/01/2014 13:41:00 02/01/2014 23:59:59 CLS Outpatient ARIAN US PSYD [id number] 01/04/2014 10:49:00 01/04/2014 23:59:59 CLS Outpatient ARIAN US PSYD [id number] 12/21/2013 10:30:00 12/21/2013 23:59:59 CLS Outpatient ARIAN US PSYD L [id number] 11/30/2013 17:09:00 11/30/2013 23:59:59 CLS Outpatient AISLINN OCONNOR BEVERLY S [id number] 11/21/2013 12:44:00 11/21/2013 23:59:59 CLS Outpatient JAVAD DAMON APRN [id number] 11/21/2013 12:44:00 11/21/2013 23:59:59 CLS Outpatient JAVAD DAMON APRN [id number] 11/13/2013 12:34:00 11/13/2013 23:59:59 CLS Outpatient ARIAN US PSYD [id number] 10/26/2013 12:58:00 10/26/2013 23:59:59 CLS Outpatient AISLINN OCONNOR BEVERLY S [id number] 10/09/2013 12:45:00 10/09/2013 23:59:59 CLS Outpatient ARIAN US PSYD [id number] 09/25/2013 13:15:00 09/25/2013 23:59:59 CLS Outpatient ARIAN US PSYD [id number] 09/11/2013 12:15:00 09/11/2013 23:59:59 CLS Outpatient BEVERLY TAO APRN [id number] 09/04/2013 12:39:00 09/04/2013 23:59:59 CLS Outpatient ARIAN US PSYD [id number] 08/22/2013 14:36:00 08/22/2013 23:59:59 CLS Outpatient LOUISE COBOS MD [id number] 08/17/2013 15:36:00 08/17/2013 23:59:59 CLS Outpatient LUCIANO WILLARD DO [id number] 08/01/2013 13:44:00 08/01/2013 23:59:59 CLS Outpatient ARIAN US PSYD [id number] 07/17/2013 10:27:00 07/17/2013 23:59:59 CLS Outpatient BEVERLY TAO APRN [id number] 07/11/2013 13:05:00 07/11/2013 23:59:59 CLS Outpatient ARIAN US PSYD [id number] 06/27/2013 13:07:00 06/27/2013 23:59:59 CLS Outpatient ARIAN US PSYD [id number] 06/21/2013 16:35:00 06/21/2013 23:59:59 CLS Outpatient ARIAN US PSYD [id number] 06/06/2013 12:44:00 06/06/2013 23:59:59 CLS Outpatient CARISSA RUIZNJERMAINE Yisel [id number] 06/05/2013 08:29:00 06/05/2013 23:59:59 CLS Outpatient LOUISE COBOS MD [id number] 05/19/2013 12:44:00 05/19/2013 23:59:59 CLS Outpatient ARIAN US PSYD [id number] 05/05/2013 12:45:00 05/05/2013 23:59:59 CLS Outpatient ARIAN US PSYD [id number] 05/03/2013 14:18:00 05/03/2013 23:59:59 CLS Outpatient HARLEEN LOU APRN [id number] 04/25/2013 15:33:00 04/25/2013 23:59:59 CLS Outpatient HARLEEN LOU APRN [id number] 04/21/2013 12:55:00 04/21/2013 23:59:59 CLS Outpatient ARIAN US PSYD [id number] 03/28/2013 15:28:00 03/28/2013 23:59:59 CLS Outpatient BEVERLY TAO APRN [id number] 03/09/2013 15:35:00 03/09/2013 23:59:59 CLS Outpatient CATALINA MCKNIGHT APRN [id number] 03/06/2013 13:00:00 03/06/2013 23:59:59 CLS Outpatient ARIAN US PSYD [id number] 03/02/2013 11:33:00 03/02/2013 23:59:59 CLS Outpatient JERMAINE FERRER APRN [id number] 03/02/2013 11:33:00 03/02/2013 23:59:59 CLS Outpatient JERMAINE FERRER APRN [id number] 01/11/2013 13:50:00 01/11/2013 23:59:59 CLS Outpatient SUDHEER MORRIS LUCIANO Reji [id number] 01/05/2013 15:37:00 01/05/2013 23:59:59 CLS Outpatient ARIAN US PSYD [id number] 12/16/2012 10:54:00 12/16/2012 23:59:59 CLS Outpatient ARIAN US PSYD [id number] 06/21/2012 12:53:00 06/21/2012 23:59:59 CLS Outpatient [id number] 06/09/2012 12:38:00 06/09/2012 23:59:59 CLS Outpatient [id number] 05/30/2012 14:42:00 05/30/2012 23:59:59 CLS Outpatient [id number] 05/20/2012 10:48:00 05/20/2012 23:59:59 CLS Outpatient ARIAN US PSYD [id number] 05/06/2012 10:52:00 05/06/2012 23:59:59 CLS Outpatient [id number] 04/26/2012 12:48:00 04/26/2012 23:59:59 CLS Outpatient ARIAN US PSYD [id number] 04/11/2012 12:42:00 04/11/2012 23:59:59 CLS Outpatient ARIAN US PSYD [id number] 04/06/2012 13:34:00 04/06/2012 23:59:59 CLS Outpatient BEVERLY TAO APRN [id number] 03/31/2012 11:04:00 03/31/2012 23:59:59 CLS Outpatient [id number] 03/14/2012 12:46:00 03/14/2012 23:59:59 CLS Outpatient [id number] 02/29/2012 12:45:00 02/29/2012 23:59:59 CLS Outpatient [id number] 01/27/2012 10:14:02 01/27/2012 23:59:59 CLS Outpatient ARIAN US PSYD [id number] 12/08/2012 10:45:00 Document Registration [id number] 12/07/2012 09:39:00 Document Registration [id number] 12/01/2012 11:35:00 Document Registration [id number] 11/10/2012 14:46:00 Document Registration [id number] 10/29/2012 13:36:00 Document Registration [id number] 09/13/2012 09:57:00 Document Registration [id number] 09/06/2012 13:33:00 Document Registration [id number] 08/26/2012 09:17:00 Document Registration [id number] 08/08/2012 10:43:00 Document Registration [id number] 08/05/2012 14:59:00 Document Registration [id number] 07/19/2012 12:55:00 Document Registration [id number] 10/28/2016 08:54:00 10/28/2016 09:50:00 DIS Outpatient BEVERLY TAO [facility] REHAB BULGING DISC L3-4 L4-5 [id number] 08/14/2016 10:19:00 08/14/2016 11:53:00 DIS Emergency SOCO JOAQUIN APRN [facility] ER BACK/LEG PAIN [id number] 06/25/2016 11:01:00 07/15/2016 09:25:00 DIS Outpatient ZEHRA SINHA MD [facility] REHAB LUMBAGO [id number] 06/02/2016 11:47:00 06/02/2016 13:30:00 DIS Outpatient SOCO JOAQUIN TAXI PROPRIETOR [facility] ER UPPER ABD PAIN [id number] 05/22/2016 10:19:00 05/22/2016 23:59:59 CLS Outpatient BEVERLY TAO [facility] RAD SCREENING [id number] 05/01/2016 13:15:00 05/01/2016 14:15:00 DIS Outpatient ZEHRA SINHA MD [facility] REHAB LUMBAGO [id number] 03/20/2016 08:18:00 03/20/2016 09:14:00 DIS Outpatient ZEHRA SINHA MD [facility] CARD M51.16 [id number] 2016 15:06:00 2016 16:06:00 DIS Emergency SOCO JOAQUIN APRN [facility] ER SHOULDER PAIN [id number] 12/04/2015 11:00:00 12/04/2015 23:59:59 CLS Outpatient ZEHRA SINHA MD [facility] RAD LOW BACK PAIN [id number] 11/12/2015 14:29:00 11/12/2015 16:16:00 DIS Emergency ANGIE KIRKPATRICK [facility] ER BACK PAIN [id number] 08/23/2015 10:08:00 08/23/2015 11:46:00 DIS Outpatient ZEHRA SINHA MD [facility] CARD DISC DISORDER [id number] 06/06/2015 20:35:00 06/06/2015 21:53:00 DIS Emergency ANGIE KIRKPATRICK [facility] ER POSSIBLE ALLERGIC REACTION [id number] 05/15/2015 10:07:00 05/15/2015 23:59:59 CLS Outpatient BEVERLY TAO [facility] RAD [id number] 10/13/2014 19:11:00 10/13/2014 19:59:00 DIS Emergency TYREE HENNESSY MD [facility] ER [id number] 09/19/2014 13:26:00 09/19/2014 14:05:00 DIS Outpatient DELMA DUFFY [facility] REHAB BACK PAIN/ RADICULOPATHY [id number] 05/15/2014 09:00:00 05/15/2014 23:59:59 CLS Outpatient CATALINA MCKNIGHT TAXI PROPRIETOR [facility] RAD [id number] 03/17/2014 11:29:00 03/17/2014 14:40:00 DIS Emergency DELMA PIMENTEL MD [facility] ER [id number] 01/15/2014 14:12:00 01/15/2014 23:59:59 CLS Outpatient ZEHRA SINHA MD [facility] CARD [id number] 12/18/2013 14:14:00 12/18/2013 15:11:00 DIS Outpatient ZEHRA SINHA MD [facility] CARD [id number] 11/20/2013 13:10:00 11/20/2013 23:59:59 CLS Outpatient ZEHRA SINHA MD [facility] CARD [id number] 10/28/2013 11:22:00 10/28/2013 11:58:00 DIS Emergency SOCO JOAQUIN TAXI PROPRIETOR [facility] ER [id number] 09/25/2013 08:55:00 09/25/2013 23:59:59 CLS Outpatient BEVERLY TAO HAND LEATHER TRIMMER [facility] RAD [id number] 08/28/2013 08:04:00 08/28/2013 23:59:59 CLS Outpatient DERRELL MEAD HAND LEATHER TRIMMER [facility] RAD [id number] 07/12/2013 13:45:00 07/12/2013 14:38:00 DIS Emergency SOCO JOAQUIN TAXI PROPRIETOR [facility] ER [id number] 03/28/2013 12:43:00 03/28/2013 23:59:59 CLS Outpatient CHONG HORTON HAND LEATHER TRIMMER [facility] RAD RT BREAST PAIN [id number] 09/15/2012 12:06:00 09/15/2012 15:15:00 DIS Emergency MATTHEW GAYLE, BERNY Mendoza [facility] ER LEFT LEG/FOOT PAIN [id number] 04/07/2012 14:25:00 Document Registration [id number] 01/25/2012 12:35:00 Document Registration [id number] 06/10/2011 14:07:00 Document Registration [id number] 06/05/2011 09:06:00 Document Registration [id number] 04/15/2011 21:55:00 Document Registration [id number] 07/09/2010 21:31:00 Document Registration
== END 2017-05-13 01:37 | disposition home or self-care (01) ==
LOC: EDUNIT# 01:24 → ER 01:26
DX: H92.02 Otalgia, left ear (principal); E78.00 Pure hypercholesterolemia, unspecified; G43.909 Migraine, unspecified, not intractable, without status migrainosus; E11.9 Type 2 diabetes mellitus without complications; F41.9 Anxiety disorder, unspecified; F31.9 Bipolar disorder, unspecified; Z82.49 Family history of ischemic heart disease and other diseases of the circulatory system; Z87.19 Personal history of other diseases of the digestive system; Z87.59 Personal history of other complications of pregnancy, childbirth and the puerperium; Z88.1 Allergy status to other antibiotic agents; Z88.8 Allergy status to other drugs, medicaments and biological substances; Z79.82 Long term (current) use of aspirin; Z79.4 Long term (current) use of insulin
CPT/HCPCS: 99282

== ENCOUNTER 2017-06-11 13:18 | Emergency (ER) | payer SELFPAY ==
[~2017-06-11] VITALS: Ht 157.5 cm; Wt 81.6 kg
[2017-06-11 13:52] LABS: BASOPHILS # (AUTO) 0.1 10^3/uL (0.0-0.1); BASOPHILS % (AUTO) 1 % (0-10); EOSINOPHILS % (AUTO) 0 % (0-10); HEMATOCRIT 43 % (35-52); HEMOGLOBIN 15.1 G/DL (11.5-16.0); LYMPHOCYTES # (AUTO) 2.2 X 10^3 (1.0-4.0); LYMPHOCYTES % (AUTO) 18 % (12-44); MEAN CORPUSCULAR HEMOGLOBIN 29 PG (25-34); MEAN CORPUSCULAR HGB CONC 36 G/DL (32-36); MEAN CORPUSCULAR VOLUME 80 FL (80-99); MEAN PLATELET VOLUME 9.6 FL (7.4-10.4); MONOCYTES # (AUTO) 0.8 X 10^3 (0.0-1.0); MONOCYTES % (AUTO) 7 % (0-12); NEUTROPHILS % (AUTO) 75 % (42-75); PLATELET COUNT 279 10^3/uL (130-400); RED BLOOD COUNT 5.29 10^6/uL (4.35-5.85); WHITE BLOOD COUNT 12.1 10^3/uL (4.3-11.0)
[2017-06-11 14:00] LABS: BILIRUBIN,URINE NEGATIVE (NEGATIVE); CLARITY,URINE VERY CLOUDY; COLOR,URINE YELLOW; GLUCOSE, URINE (UA) 4+ (NEGATIVE); KETONES,URINE 4+ (NEGATIVE); LEUKOCYTE ESTERASE ,URINE 3+ (NEGATIVE); NITRITE,URINE NEGATIVE (NEGATIVE); PH,URINE 8 (5-9); PROTEIN,URINE 3+ (NEGATIVE); UROBILINOGEN,URINE NORMAL (NORMAL)
--- OUTSIDE RECORDS SUMMARY | 2017-06-11 14:00 | XMS REPORT | Continuity of Care Document ---
Author Author [facility] Address Unknown Phone Unavailable Allergies Active Description Code Type Severity Reaction Onset Reported/Identified Relationship to Patient Clinical Status Yes Zithromax Drug Allergy 05/08/2008 Yes Zithromax Drug Allergy N/A N/A 05/08/2008 Yes azithromycin [id number] Drug Allergy Unknown N/A 10/28/2013 Yes prednisone [id number] Drug Allergy Unknown RAISES BLOOD ESPINOZA 10/28/2013 [...] 250.00 DIABETES MELLITUS TYPE 2 12/22/2007 NELSON COTTON BROKER, JAVAD 250.00 DIABETES MELLITUS TYPE 2 12/22/2007 [...] 250.00 DIABETES MELLITUS TYPE 2 12/22/2007 ROXANNA COTTON BROKER, CATALINA A 250.00 DIABETES MELLITUS TYPE 2 [...] A V72.31 Routine Gynecological Examination 01/24/2008 ARIAN US [...] And Abscess Of Unspecified Sites 04/02/2008 AISLINN COTTON BROKER, BEVERLY S 682.9 Cellulitis And Abscess Of [...] And Abscess Of Unspecified Sites 04/02/2008 AISLINN COTTON BROKER, BEVERLY S 682.9 Cellulitis And Abscess Of Unspecified Sites 04/02/2008 ARIAN US PSYD ANN L 682.9 Cellulitis And Abscess Of Unspecified Sites 04/02/2008 ARIAN US PSYD ANN L 682.9 Cellulitis And Abscess Of Unspecified Sites 04/02/2008 CLAUDE TAO APRNNDA S 682.9 Cellulitis And Abscess Of Unspecified Sites 04/02/2008 ARIAN US PSYD ANN L 682.9 Cellulitis And Abscess Of Unspecified Sites 04/02/2008 NELSON COTTON BROKER, JAVAD 682.9 Cellulitis And Abscess Of Unspecified Sites 04/02/2008 CLAUDE TAO APRNNDA S 682.9 Cellulitis And Abscess Of Unspecified Sites 04/02/2008 NELSON COTTON BROKER, JAVAD 682.9 Cellulitis And Abscess Of Unspecified [...] And Abscess Of Unspecified Sites 04/02/2008 NELSON COTTON BROKER, JAVAD 682.9 Cellulitis And Abscess Of Unspecified [...] Respiratory Infections Of Unspecified Site 05/08/2008 AISLINN COTTON BROKER, BEVERLY S 465.9 Acute Upper Respiratory Infections Of Unspecified Site 05/08/2008 ARIAN US PSYD ANN L 465.9 Acute Upper Respiratory Infections Of Unspecified Site 05/08/2008 LUCIANO WILLARD DO 465.9 Acute Upper Respiratory Infections Of Unspecified Site 05/08/2008 PAPITO GAYLE, LOIUSE 465.9 Acute Upper Respiratory Infections Of Unspecified Site 05/08/2008 ARIAN US PSYD ANN L 465.9 Acute Upper Respiratory Infections Of Unspecified Site 05/08/2008 AISLINN COTTON BROKER, BEVERLY S 465.9 Acute Upper Respiratory Infections Of Unspecified Site 05/08/2008 ARIAN US PSYD ANN L 465.9 Acute Upper Respiratory Infections Of Unspecified Site 05/08/2008 ARIAN US PSYD ANN L 465.9 Acute Upper Respiratory Infections Of Unspecified Site 05/08/2008 AISLINN COTTON BROKER, BEVERLY S 465.9 Acute Upper Respiratory Infections Of Unspecified Site 05/08/2008 ARIAN US PSYD ANN L 465.9 Acute Upper Respiratory Infections Of Unspecified Site 05/08/2008 NELSON COTTON BROKER, JAVAD 465.9 Acute Upper Respiratory Infections Of Unspecified Site 05/08/2008 AISLINN COTTON BROKER, BEVERLY S 465.9 Acute Upper Respiratory Infections Of Unspecified Site 05/08/2008 NELSON COTTON BROKER, JAVAD 465.9 Acute Upper Respiratory Infections Of Unspecified Site 05/08/2008 ARIAN US PSYD ANN L 465.9 Acute Upper Respiratory Infections Of Unspecified Site 05/08/2008 ARIAN US PSYD ANN L 465.9 Acute Upper Respiratory Infections Of Unspecified Site 05/08/2008 ARIAN US PSYD ANN L 465.9 Acute Upper Respiratory Infections Of Unspecified Site 05/08/2008 AISLINN COTTON BROKER, BEVERLY S 465.9 Acute Upper Respiratory Infections [...] Specified Infectious And Parasitic Diseases 05/30/2008 AISLINN COTTON BROKER, BEVERLY S 136.8 Other Specified Infectious And [...] Specified Infectious And Parasitic Diseases 05/30/2008 AISLINN OCONNOR BEVERLY S 136.8 Other Specified Infectious And Parasitic Diseases 05/30/2008 ARIAN US PSYD ANN L 136.8 Other Specified Infectious And Parasitic Diseases 05/30/2008 NELSON COTTON BROKER, JAVAD 136.8 Other Specified Infectious And Parasitic [...] Specified Infectious And Parasitic Diseases 05/30/2008 NELSON COTTON BROKER, JAVAD 136.8 Other Specified Infectious And Parasitic [...] L 729.5 Pain In Limb 06/06/2008 NELSON COTTON BROKER, JAVAD 729.5 Pain In Limb 06/06/2008 AISLINNCHICHI OCONNOR, BEVERLY S 729.5 Pain In Limb 06/06/2008 NELSON COTTON BROKER, JAVAD 729.5 Pain In Limb 06/06/2008 ARIAN US PSYD ANN L 729.5 Pain In Limb 06/06/2008 ARIAN US PSYD ANN L 729.5 Pain In Limb 06/06/2008 ARIAN US PSYD ANN L 729.5 Pain In Limb 06/06/2008 AISLINN OCONNOR BEVERLY S 729.5 Pain In Limb 06/06/2008 ROXANNAKassi OCONNOR CATALINA A 729.5 Pain In Limb 06/06/2008 NELSON COTTON BROKER, JAVAD 729.5 Pain In Limb 06/06/2008 ARIAN [...] CATALINA A 729.5 Pain In Limb 06/06/2008 ARIAN [...] T 794.17 Abnormal Electromyogram (emg) 07/02/2008 DASHA COTTON BROKER HARLEEN T 794.17 Abnormal Electromyogram (emg) 07/02/2008 [...] L 794.17 Abnormal Electromyogram (emg) 07/02/2008 AISLINN COTTON BROKER, BEVERLY S 794.17 Abnormal Electromyogram (emg) 07/02/2008 MCCLEEARY PSYD, DAISHA L 794.17 Abnormal Electromyogram (emg) 07/02/2008 NELSON COTTON BROKER, JAVAD 794.17 Abnormal Electromyogram (emg) 07/02/2008 AISLINN COTTON BROKER, BEVERLY S 794.17 Abnormal Electromyogram (emg) 07/02/2008 NELSON COTTON BROKER, JAVAD 794.17 Abnormal Electromyogram (emg) 07/02/2008 MCCLEEARY PSYD, DAISHA L 794.17 Abnormal Electromyogram (emg) 07/02/2008 MCCLEEARY PSYD, DAISHA L 794.17 Abnormal Electromyogram (emg) 07/02/2008 MCCLEEARY PSYD, DAISHA L 794.17 Abnormal Electromyogram (emg) 07/02/2008 AISLINN COTTON BROKER, BEVERLY S 794.17 Abnormal Electromyogram (emg) 07/02/2008 ROXANNA COTTON BROKER, CATALINA A 794.17 Abnormal Electromyogram (emg) 07/02/2008 NELSON COTTON BROKER, JAVAD 794.17 Abnormal Electromyogram (emg) 07/02/2008 MCCLEEARY PSYD, DAISHA L 794.17 Abnormal Electromyogram (emg) 07/02/2008 MCCLEEARY PSYD, DAISHA L 794.17 Abnormal Electromyogram (emg) 07/02/2008 AISLINN COTTON BROKER, BEVERLY S 794.17 Abnormal Electromyogram (emg) 07/02/2008 MCCLEEARY PSYD, DAISHA L 794.17 Abnormal Electromyogram (emg) 07/02/2008 MCCLEEARY PSYD, DAISHA L 794.17 Abnormal Electromyogram (emg) 07/02/2008 ROXANNA COTTON BROKER, CATALINA A 794.17 Abnormal Electromyogram (emg) 07/02/2008 [...] PSYD, DAISHA L 784.0 Headache 01/30/2009 AISLINN COTTON BROKER, BEVERLY S 784.0 Headache 01/30/2009 MCCLEEARY PSYD, DAISHA L 784.0 Headache 01/30/2009 LUCIANO WILLARD DO K 784.0 Headache 01/30/2009 LOUISE COBOS MD 784.0 Headache 01/30/2009 MCCLEEARY PSYD, DAISHA L 784.0 Headache 01/30/2009 AISLINN COTTON BROKER, BEVERLY S 784.0 Headache 01/30/2009 MCCLEEARY PSYD, DAISHA L 784.0 Headache 01/30/2009 MCCLEEARY PSYD, DAISHA L 784.0 Headache 01/30/2009 AISLINN COTTON BROKER, BEVERLY S 784.0 Headache 01/30/2009 MCCLEEARY PSYD, DAISHA L 784.0 Headache 01/30/2009 NELSON COTTON BROKER, JAVAD 784.0 Headache 01/30/2009 AISLINN COTTON BROKER, BEVERLY S 784.0 Headache 01/30/2009 NELSON COTTON BROKER, JAVAD 784.0 Headache 01/30/2009 MCCLEEARY PSYD, DAISHA L 784.0 Headache 01/30/2009 MCCLEEARY PSYD, DAISHA L 784.0 Headache 01/30/2009 MCCLEEARY PSYD, DAISHA L 784.0 Headache 01/30/2009 AISLINN COTTON BROKER, BEVERLY S 784.0 Headache 01/30/2009 ROXANNA COTTON BROKER, CATALINA A 784.0 Headache 01/30/2009 NELSON COTTON BROKER, JAVAD 784.0 Headache 01/30/2009 MCCLEEARY PSYD, DAISHA L 784.0 Headache 01/30/2009 MCCLEEARY PSYD, DAISHA L 784.0 Headache 01/30/2009 AISLINN COTTON BROKER, BEVERLY S 784.0 Headache 01/30/2009 MCCLIBBY GARZA, [...] US PSYD L 611.71 Breast Pain 07/08/2009 AIRAN US PSYD L 719.47 Pain In Joint, [...] ANN L 611.71 Breast Pain 07/08/2009 MCCARIAN SUOZA PSYD ANN L 719.47 Pain In Joint, [...] In Joint, Ankle And Foot 07/08/2009 AISLINN COTTON BROKER, BEVERLY S 611.71 Breast Pain 07/08/2009 AISLINN COTTON BROKER, BEVERLY S 719.47 Pain In Joint, Ankle And Foot 07/08/2009 ARIAN US PSYD L 611.71 Breast Pain 07/08/2009 ARIAN US PSYD ANN L 719.47 Pain In Joint, Ankle And Foot 07/08/2009 NELSON COTTON BROKER, JAVAD 611.71 Breast Pain 07/08/2009 NELSON COTTON BROKER, JAVAD 719.47 Pain In Joint, Ankle And Foot 07/08/2009 AISLINN APRN, BEVERLY S 611.71 Breast Pain 07/08/2009 AISLINN COTTON BROKER, BEVERLY S 719.47 Pain In Joint, Ankle And Foot 07/08/2009 NELSON COTTON BROKER, JAVAD 611.71 Breast Pain 07/08/2009 NELSON COTTON BROKER, JAVAD 719.47 Pain In Joint, Ankle And [...] BEVERLY S 611.71 Breast Pain 07/08/2009 AISLINN COTTON BROKER, BEVERLY S 719.47 Pain In Joint, Ankle And Foot 07/08/2009 ROXANNA COTTON BROKER, CATALINA A 611.71 Breast Pain 07/08/2009 ROXANNA COTTON BROKER, CATALINA A 719.47 Pain In Joint, Ankle And Foot 07/08/2009 NELSON COTTON BROKER, JAVAD 611.71 Breast Pain 07/08/2009 NELSON COTTON BROKER, JAVAD 719.47 Pain In Joint, Ankle And [...] Of Skin And Subcutaneous Tissue 07/16/2009 NELSON COTTON BROKER, JAVAD 686.9 Unspecified Local Infection Of Skin And Subcutaneous Tissue 07/16/2009 LATONYA TAO APRNA S 686.9 Unspecified Local Infection Of Skin And Subcutaneous Tissue 07/16/2009 NELSON COTTON BROKER JAVAD 686.9 Unspecified Local Infection Of Skin [...] Of Skin And Subcutaneous Tissue 07/16/2009 NELSON COTTON BROKER, JAVAD 686.9 Unspecified Local Infection Of Skin [...] DAISHA L 847.0 Sprain/strain Neck 09/30/2009 AISLINN COTTON BROKER, BEVERLY S 847.0 Sprain/strain Neck 09/30/2009 ABEBA GARZA, DAISHA L 847.0 Sprain/strain Neck 09/30/2009 ABEBA GARZA, DAISHA L 847.0 Sprain/strain Neck 09/30/2009 AISLINN COTTON BROKER, BEVERLY S 847.0 Sprain/strain Neck 09/30/2009 ARIAN US PSYD ANN L 847.0 Sprain/strain Neck 09/30/2009 NELSON COTTON BROKER, JAVAD 847.0 Sprain/strain Neck 09/30/2009 AISLINN OCONNOR, BEVERLY S 847.0 Sprain/strain Neck 09/30/2009 NELSON COTTON BROKER, JAVAD 847.0 Sprain/strain Neck 09/30/2009 ABEBA GARZA, DAISHA L 847.0 Sprain/strain Neck 09/30/2009 ABEBA GARZA, DAISHA L 847.0 Sprain/strain Neck 09/30/2009 ARIAN US PSYD ANN L 847.0 Sprain/strain Neck 09/30/2009 AISLINN OCONNOR BEVERLY S 847.0 Sprain/strain Neck 09/30/2009 CATALINA MCKNIGHT APRN A 847.0 Sprain/strain Neck 09/30/2009 NELSON COTTON BROKER, JAVAD 847.0 Sprain/strain Neck 09/30/2009 ABEBA GARZA, [...] Reading Without Diagnosis Of Hypertension 01/07/2010 HARLEEN LUO APRN T 796.2 Elevated Blood Pressure Reading [...] Reading Without Diagnosis Of Hypertension 01/07/2010 NELSON COTTON BROKER, JAVAD 796.2 Elevated Blood Pressure Reading Without Diagnosis Of Hypertension 01/07/2010 AISLINN OCONNOR BEVERLY S 796.2 Elevated Blood Pressure Reading Without Diagnosis Of Hypertension 01/07/2010 NELSON COTTON BROKER, JAVAD 796.2 Elevated Blood Pressure Reading Without [...] Reading Without Diagnosis Of Hypertension 01/07/2010 NELSON COTTON BROKER, JAVAD 796.2 Elevated Blood Pressure Reading Without [...] ANN L 272.1 Pure Hyperglyceridemia 03/05/2010 DASHA ANATSASIA HARLEEN T 272.1 Pure Hyperglyceridemia 03/05/2010 DASHA [...] OCONNOR JAVAD 272.1 Pure Hyperglyceridemia 03/05/2010 ARIAN SU PSYD ANN L 272.1 Pure Hyperglyceridemia 03/05/2010 ARIAN US PSYD ANN L 272.1 Pure Hyperglyceridemia 03/05/2010 AISLINN OCONNOR, BEVERLY S 272.1 Pure Hyperglyceridemia 03/05/2010 ARIAN US PSYD ANN L 272.1 Pure Hyperglyceridemia 03/05/2010 ARIAN US PSYD ANN L 272.1 Pure Hyperglyceridemia 03/05/2010 ROXANNA APRN, CAATLINA A 272.1 Pure Hyperglyceridemia 03/05/2010 ARIAN US [...] II 10/16/2010 296.89 MO BIPOLAR II 10/16/2010 BEEVRLY TAO APRN S 296.89 MO BIPOLAR II [...] L 296.89 MO BIPOLAR II 10/16/2010 NELSON COTTON BROKER, JAVAD 296.89 MO BIPOLAR II 10/16/2010 CLAUDE [...] ANN L 296.89 MO BIPOLAR II 10/16/2010 ROXANNA OCONNOR [...] MO BIPOLAR I MIXED MODERATE 01/22/2011 NELSON COTTON BROKER, JAVAD 296.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 I MIXED MODERATE 01/22/2011 AISLINN OCONNOR, BEVERLY S 296.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 I MIXED MODERATE 01/22/2011 NELSON COTTON BROKER, JAVAD 296.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 I MIXED MODERATE 01/22/2011 ARIAN US PSYD ANN L 296.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 I MIXED MODERATE 01/22/2011 ARIAN US PSYD ANN L 296.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 I MIXED MODERATE 01/22/2011 ARIAN US PSYD ANN L 296.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 I MIXED MODERATE 01/22/2011 AISLINNCHICHI OCONNOR, BEVERLY S 296.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 I MIXED MODERATE 01/22/2011 ROXANNA COTTON BROKER, CATALINA A 296.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 I MIXED [...] K 535.00 Acute Gastritis (without Hemorrhage) 02/02/2011 JERMAINE [...] S 354.0 Carpal Tunnel Syndrome 02/02/2011 AISLINN COTTON BROKER, BEVERLY S 535.00 Acute Gastritis (without Hemorrhage) 02/02/2011 JERMAINE FERRER APRN D 354.0 Carpal Tunnel Syndrome 02/02/2011 JERMAINE FERRER APRN D 535.00 Acute Gastritis (without Hemorrhage) 02/02/2011 ARIAN US PSYD L 354.0 Carpal Tunnel Syndrome 02/02/2011 ARIAN US PSYD ANN L 535.00 Acute Gastritis (without Hemorrhage) 02/02/2011 DASHA COTTON BROKER, HARLEEN T 354.0 Carpal Tunnel Syndrome 02/02/2011 DASHA COTTON BROKER, HARLEEN T 535.00 Acute Gastritis (without Hemorrhage) 02/02/2011 DASHA COTTON BROKER, HARLEEN T 354.0 Carpal Tunnel Syndrome 02/02/2011 DASHA COTTON BROKER, HARLEEN T 535.00 Acute Gastritis (without Hemorrhage) 02/02/2011 ARIAN US PSYD ANN L 354.0 Carpal Tunnel Syndrome 02/02/2011 ARIAN SU PSYD ANN L 535.00 Acute Gastritis (without [...] 535.00 Acute Gastritis (without Hemorrhage) 02/02/2011 AISLINN COTTON BROKER, BEVERLY S 354.0 Carpal Tunnel Syndrome 02/02/2011 AISLINN COTTON BROKER, BEVERLY S 535.00 Acute Gastritis (without Hemorrhage) 02/02/2011 ARIAN US PSYD ANN L 354.0 Carpal Tunnel Syndrome 02/02/2011 ARIAN US PSYD ANN L 535.00 Acute Gastritis (without Hemorrhage) 02/02/2011 WILLARD DORUBAA K 354.0 Carpal Tunnel Syndrome 02/02/2011 WILLARD DORUBAA K 535.00 Acute Gastritis (without Hemorrhage) 02/02/2011 LOUISE COBOS MD 354.0 Carpal Tunnel Syndrome 02/02/2011 LOUIES COBOS MD 535.00 Acute Gastritis (without Hemorrhage) 02/02/2011 ARIAN US PSYD ANN L 354.0 Carpal Tunnel Syndrome 02/02/2011 ARIAN US PSYD ANN L 535.00 Acute Gastritis (without Hemorrhage) 02/02/2011 AISLINN COTTON BROKER, BEVERLY S 354.0 Carpal Tunnel Syndrome 02/02/2011 AISLINN COTTON BROKER, BEVERLY S 535.00 Acute Gastritis (without Hemorrhage) 02/02/2011 ARIAN US PSYD ANN L 354.0 Carpal Tunnel Syndrome 02/02/2011 ARIAN US PSYD ANN L 535.00 Acute Gastritis (without Hemorrhage) 02/02/2011 ARIAN US PSYD ANN L 354.0 Carpal Tunnel Syndrome 02/02/2011 ARIAN US PSYD ANN L 535.00 Acute Gastritis (without Hemorrhage) 02/02/2011 AISLINN COTTON BROKER, BEVERLY S 354.0 Carpal Tunnel Syndrome 02/02/2011 AISLINN COTTON BROKER, BEVERLY S 535.00 Acute Gastritis (without Hemorrhage) 02/02/2011 ARIAN US PSYD ANN L 354.0 Carpal Tunnel Syndrome 02/02/2011 ARIAN US PSYD ANN L 535.00 Acute Gastritis (without Hemorrhage) 02/02/2011 NELSON COTTON BROKER, JAVAD 354.0 Carpal Tunnel Syndrome 02/02/2011 NELSON COTTON BROKER, JAVAD 535.00 Acute Gastritis (without Hemorrhage) 02/02/2011 AISLINN COTTON BROKER, BEVERLY S 354.0 Carpal Tunnel Syndrome 02/02/2011 AISLINN COTTON BROKER, BEVERLY S 535.00 Acute Gastritis (without Hemorrhage) 02/02/2011 NELSON COTTON BROKER, JAVAD 354.0 Carpal Tunnel Syndrome 02/02/2011 NELSON COTTON BROKER, JAVAD 535.00 Acute Gastritis (without Hemorrhage) 02/02/2011 [...] 535.00 Acute Gastritis (without Hemorrhage) 02/02/2011 AISLINN COTTON BROKER, BEVERLY S 354.0 Carpal Tunnel Syndrome 02/02/2011 AISLINN COTTON BROKER, BEVERLY S 535.00 Acute Gastritis (without Hemorrhage) 02/02/2011 ROXANNA COTTON BROKER, CATALINA A 354.0 Carpal Tunnel Syndrome 02/02/2011 ROXANNA COTTON BROKER, CATALINA A 535.00 Acute Gastritis (without Hemorrhage) 02/02/2011 NELSON COTTON BROKER, JAVAD 354.0 Carpal Tunnel Syndrome 02/02/2011 NELSON COTTON BROKER, JAVAD 535.00 Acute Gastritis (without Hemorrhage) 02/02/2011 [...] 535.00 Acute Gastritis (without Hemorrhage) 02/02/2011 ROXANNA COTTON BROKER, CATALINA A 354.0 Carpal Tunnel Syndrome 02/02/2011 ROXANNA COTTON BROKER, CATALINA A 535.00 Acute Gastritis (without Hemorrhage) [...] 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 02/12/2011 NELSON COTTON BROKER, JAVAD 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 02/12/2011 [...] APRN S 300.02 AN GEN ANXIETY 05/29/2011 NELOSN OCONNOR JAVAD 300.02 AN GEN ANXIETY 05/29/2011 [...] APRN 787.01 NAUSEA WITH VOMITING 06/01/2011 ROXANNA COTTON BROKER, CATALINA A 789.07 ABDOMINAL PAIN GENERALIZED 06/01/2011 [...] S 787.01 NAUSEA WITH VOMITING 06/01/2011 CLAUDE TOA APRNNDA S 789.07 ABDOMINAL PAIN GENERALIZED 06/01/2011 [...] APRN 787.01 NAUSEA WITH VOMITING 06/01/2011 NELSON COTTON BROKER, JAVAD 789.07 ABDOMINAL PAIN GENERALIZED 06/01/2011 AISLINN COTTON BROKER, BEVERLY S 787.01 NAUSEA WITH VOMITING 06/01/2011 AISLINN COTTON BROKER, BEVERLY S 789.07 ABDOMINAL PAIN GENERALIZED 06/01/2011 NELSON COTTON BROKER, JAVAD 787.01 NAUSEA WITH VOMITING 06/01/2011 NELSON COTTON BROKER, JAVAD 789.07 ABDOMINAL PAIN GENERALIZED 06/01/2011 ARIAN [...] S 787.01 NAUSEA WITH VOMITING 06/01/2011 AISLINN COTTON BROKER, BEVERLY S 789.07 ABDOMINAL PAIN GENERALIZED 06/01/2011 ROXANNAKassi OCONNOR CATALINA A 787.01 NAUSEA WITH VOMITING 06/01/2011 ROXANNA COTTON BROKER, CATALINA A 789.07 ABDOMINAL PAIN GENERALIZED 06/01/2011 NELSON COTTON BROKER, JAVAD 787.01 NAUSEA WITH VOMITING 06/01/2011 NELSON COTTON BROKER, JAVAD 789.07 ABDOMINAL PAIN GENERALIZED 06/01/2011 ARIAN [...] L 789.07 ABDOMINAL PAIN GENERALIZED 06/01/2011 ROXANNA COTTON BROKER, CATALINA A 787.01 NAUSEA WITH VOMITING 06/01/2011 ROXANNA COTTON BROKER, CATALINA A 789.07 ABDOMINAL PAIN GENERALIZED 06/01/2011 [...] PSYD ANN L 787.91 DIARRHEA 06/17/2011 NELSON COTTON BROKER, JAVAD 787.91 DIARRHEA 06/17/2011 AISLINN OCONNOR BEVERLY S 787.91 DIARRHEA 06/17/2011 NELSON COTTON BROKER, JAVAD 787.91 DIARRHEA 06/17/2011 ARIAN US PSYD ANN L 787.91 DIARRHEA 06/17/2011 ARIAN US PSYD ANN L 787.91 DIARRHEA 06/17/2011 ARIAN US PSYD ANN L 787.91 DIARRHEA 06/17/2011 AISLINN OCONNOR BEVERLY S 787.91 DIARRHEA 06/17/2011 ROXANNA OCONNOR, CATALINA A 787.91 DIARRHEA 06/17/2011 NELSON COTTON BROKER, JAVAD 787.91 DIARRHEA 06/17/2011 ARIAN US PSYD [...] CATALINA MCKNIGHT APRN 787.1 HEARTBURN 09/07/2011 BEVERLY TAO APRN 787.1 HEARTBURN 09/07/2011 JERMAINE FERRER APRN [...] ANN L 787.1 HEARTBURN 09/07/2011 NELSONVANDANA OCONNOR JAVAD 787.1 HEARTBURN 09/07/2011 CLAUDE TAO APRNNDA S 787.1 HEARTBURN 09/07/2011 NELSON OCONNOR JAVAD 787.1 HEARTBURN 09/07/2011 ARIAN US PSYD ANN L 787.1 HEARTBURN 09/07/2011 ARIAN US PSYD ANN L 787.1 HEARTBURN 09/07/2011 ARIAN US PSYD ANN L 787.1 HEARTBURN 09/07/2011 AISLINN OCONNOR BEVERLY S 787.1 HEARTBURN 09/07/2011 CATALINA MCKNIGHT APRN 787.1 HEARTBURN 09/07/2011 NELSON COTTON BROKER, JVAAD 787.1 HEARTBURN 09/07/2011 ARIAN US PSYD ANN [...] MO BIPOLAR I MIXED UNSPECIFIED 01/01/2012 ARIAN SU PSYD ANN L 296.60 MO BIPOLAR I [...] 296.60 MO BIPOLAR I MIXED UNSPECIFIED 01/01/2012 ARINA US PSYD ANN L 296.60 MO BIPOLAR [...] MO BIPOLAR I MIXED UNSPECIFIED 01/01/2012 NELSON COTTON BROKER, JAVAD 296.60 MO BIPOLAR I MIXED UNSPECIFIED [...] MO BIPOLAR I MIXED UNSPECIFIED 01/01/2012 ROXANNA COTTON BROKER, CATALINA A 296.60 MO BIPOLAR I MIXED [...] ANN L 593.9 RENAL INSUFFICIENCY 01/07/2012 NELSON COTTON BROKER, JAVAD 356.9 NEUROPATHY 01/07/2012 NELSON COTTON BROKER, JAVAD 593.9 RENAL INSUFFICIENCY 01/07/2012 AISLINN OCONNOR, BEVERLY S 356.9 NEUROPATHY 01/07/2012 AISLINNCHICHI RUIZN, BEVERLY S 593.9 RENAL INSUFFICIENCY 01/07/2012 NELSON COTTON BROKER, JAVAD 356.9 NEUROPATHY 01/07/2012 NELSON COTTON BROKER, JAVAD 593.9 RENAL INSUFFICIENCY 01/07/2012 ARIAN US [...] MADAI OCONNORETTE 356.9 NEUROPATHY 01/07/2012 NELSON MADAI OCONNORETTE 593.9 RENAL INSUFFICIENCY 01/07/2012 ARIAN US PSYD [...] OF UNSPECIFIED SITE OF BACK 01/29/2012 AISLINN COTTON BROKER, BEVERLY S 720.2 SACROILIITIS NOT ELSEWHERE CLASSIFIED 01/29/2012 AISLINN COTTON BROKER, BEVERLY S 724.3 SCIATICA 01/29/2012 AISLINN COTTON BROKER, BEVERLY S 847.9 SPRAIN OF UNSPECIFIED SITE [...] 720.2 SACROILIITIS NOT ELSEWHERE CLASSIFIED 01/29/2012 ROXANNA COTTON BROKER, CATALINA A 724.3 SCIATICA 01/29/2012 ROXANNA COTTON BROKER, CATALINA A 847.9 SPRAIN OF UNSPECIFIED SITE OF BACK 01/29/2012 AISLINN COTTON BROKER, BEVERLY S 720.2 SACROILIITIS NOT ELSEWHERE CLASSIFIED 01/29/2012 AISLINN COTTON BROKER, BEVERLY S 724.3 SCIATICA 01/29/2012 AISLINN OCONNOR [...] SACROILIITIS NOT ELSEWHERE CLASSIFIED 01/29/2012 ABEBA GARZA DASIHA L 724.3 SCIATICA 01/29/2012 ABEBA GARZA DAISHA [...] OF UNSPECIFIED SITE OF BACK 01/29/2012 NELSON COTTON BROKER, JAVAD 720.2 SACROILIITIS NOT ELSEWHERE CLASSIFIED 01/29/2012 NELSON COTTON BROKER, JAVAD 724.3 SCIATICA 01/29/2012 NELSON COTTON BROKER JAVAD 847.9 SPRAIN OF UNSPECIFIED SITE OF BACK 01/29/2012 AISLINN COTTON BROKER, BEVERLY S 720.2 SACROILIITIS NOT ELSEWHERE CLASSIFIED 01/29/2012 AISLINN COTTON BROKER, BEVERLY S 724.3 SCIATICA 01/29/2012 AISLINN COTTON BROKER, BEVERLY S 847.9 SPRAIN OF UNSPECIFIED SITE OF BACK 01/29/2012 NELSON COTTON BROKER, JAVAD 720.2 SACROILIITIS NOT ELSEWHERE CLASSIFIED 01/29/2012 NELSON OCONNOR JAVAD 724.3 SCIATICA 01/29/2012 NELSON COTTON BROKER, JAVAD 847.9 SPRAIN OF UNSPECIFIED SITE OF BACK 01/29/2012 ARIAN US PSYD ANN L 720.2 SACROILIITIS NOT ELSEWHERE CLASSIFIED 01/29/2012 ARIAN US PSYD ANN L 724.3 SCIATICA 01/29/2012 ARIAN US PSYD ANN L 847.9 SPRAIN OF UNSPECIFIED SITE OF BACK 01/29/2012 ARIAN US PSYD ANN L 720.2 SACROILIITIS NOT ELSEWHERE CLASSIFIED 01/29/2012 ARIAN SU PSYD ANN L 724.3 SCIATICA 01/29/2012 ARIAN US PSYD ANN L 847.9 SPRAIN OF UNSPECIFIED SITE OF BACK 01/29/2012 ARIAN US PSYD ANN L 720.2 SACROILIITIS NOT ELSEWHERE CLASSIFIED 01/29/2012 ARIAN US PSYD ANN L 724.3 SCIATICA 01/29/2012 ARIAN US PSYD ANN L 847.9 SPRAIN OF UNSPECIFIED SITE OF BACK 01/29/2012 AISLINN COTTON BROKER, BEVERLY S 720.2 SACROILIITIS NOT ELSEWHERE CLASSIFIED 01/29/2012 AISLINN COTTON BROKER, BEVERLY S 724.3 SCIATICA 01/29/2012 AISLINN COTTON BROKER, BEVERLY S 847.9 SPRAIN OF UNSPECIFIED SITE OF BACK 01/29/2012 ROXANNA COTTON BROKER, CATALINA A 720.2 SACROILIITIS NOT ELSEWHERE CLASSIFIED 01/29/2012 ROXANNA COTTON BROKER, CATALINA A 724.3 SCIATICA 01/29/2012 ROXANNA COTTON BROKER, CATALINA A 847.9 SPRAIN OF UNSPECIFIED SITE OF BACK 01/29/2012 NELSON COTTON BROKER JAVAD 720.2 SACROILIITIS NOT ELSEWHERE CLASSIFIED 01/29/2012 NELSON COTTON BROKER, JAVAD 724.3 SCIATICA 01/29/2012 NELSON COTTON BROKER, JAVAD 847.9 SPRAIN OF UNSPECIFIED SITE OF [...] OF UNSPECIFIED SITE OF BACK 01/29/2012 AISLINN COTTON BROKER, BEVERLY S 720.2 SACROILIITIS NOT ELSEWHERE CLASSIFIED 01/29/2012 AISLINN COTTON BROKER, BEVERLY S 724.3 SCIATICA 01/29/2012 AISLINN COTTON BROKER, BEVERLY S 847.9 SPRAIN OF UNSPECIFIED SITE [...] L 720.2 SACROILIITIS NOT ELSEWHERE CLASSIFIED 01/29/2012 ARINA US PSYD ANN L 724.3 SCIATICA 01/29/2012 [...] DO, LUCIANO K 791.0 PROTEINURIA 08/25/2012 GARTON COTTON BROKERJERMAINE Solitario D 791.0 PROTEINURIA 08/25/2012 ARIAN US PSYD L 791.0 PROTEINURIA 08/25/2012 ROXANNA COTTON BROKER, CATALINA A 791.0 PROTEINURIA 08/25/2012 AISLINN COTTON BROKER, BEVERLY S 791.0 PROTEINURIA 08/25/2012 GARSOURAV COTTON BROKERJERMAINE Solitario 791.0 PROTEINURIA 08/25/2012 ARIAN US PSYD L 791.0 PROTEINURIA 08/25/2012 DASHA COTTON BROKER, HARLEEN T 791.0 PROTEINURIA 08/25/2012 DASHA COTTON BROKER, HARLEEN T 791.0 PROTEINURIA 08/25/2012 ARIAN US PSYD ANN L 791.0 PROTEINURIA 08/25/2012 ARIAN US PSYD L 791.0 PROTEINURIA 08/25/2012 LOUISE COBOS MD 791.0 PROTEINURIA 08/25/2012 JERMAINE FERRER APRN 791.0 PROTEINURIA 08/25/2012 ARIAN US PSYD L 791.0 PROTEINURIA 08/25/2012 ARIAN US PSYD L 791.0 PROTEINURIA 08/25/2012 ARIAN US PSYD ANN L 791.0 PROTEINURIA 08/25/2012 AISLINN COTTON BROKER, BEVERLY S 791.0 PROTEINURIA 08/25/2012 ARIAN US PSYD ANN L 791.0 PROTEINURIA 08/25/2012 WILLARD DO, LUCIANO K 791.0 PROTEINURIA 08/25/2012 HUERTER MD, LOUISE 791.0 PROTEINURIA 08/25/2012 ARIAN US PSYD ANN L 791.0 PROTEINURIA 08/25/2012 AISLINN COTTON BROKER, BEVERLY S 791.0 PROTEINURIA 08/25/2012 ARIAN US PSYD ANN L 791.0 PROTEINURIA 08/25/2012 ARIAN US PSYD ANN L 791.0 PROTEINURIA 08/25/2012 AISLINN COTTON BROKER, BEVERLY S 791.0 PROTEINURIA 08/25/2012 ARIAN US PSYD ANN L 791.0 PROTEINURIA 08/25/2012 NELSON COTTON BROKER, JAVAD 791.0 PROTEINURIA 08/25/2012 AISLINN COTTON BROKER, BEVERLY S 791.0 PROTEINURIA 08/25/2012 NELSON COTTON BROKER, JAVAD 791.0 PROTEINURIA 08/25/2012 ARIAN US PSYD ANN L 791.0 PROTEINURIA 08/25/2012 ARIAN US PSYD ANN L 791.0 PROTEINURIA 08/25/2012 ARIAN US PSYD ANN L 791.0 PROTEINURIA 08/25/2012 AISLINN COTTON BROKER, BEVERLY S 791.0 PROTEINURIA 08/25/2012 ROXANNA COTTON BROKER, CATALINA A 791.0 PROTEINURIA 08/25/2012 NELSON COTTON BROKER, JAVAD 791.0 PROTEINURIA 08/25/2012 ARIAN US PSYD ANN L 791.0 PROTEINURIA 08/25/2012 ARIAN US PSYD ANN L 791.0 PROTEINURIA 08/25/2012 AISLINN COTTON BROKER, BEVERLY S 791.0 PROTEINURIA 08/25/2012 ARIAN US PSYD ANN L 791.0 PROTEINURIA 08/25/2012 ARIAN US PSYD ANN L 791.0 PROTEINURIA 08/25/2012 ROXANNA COTTON BROKER, CATALINA A 791.0 PROTEINURIA 08/25/2012 ARIAN US [...] PSYD L 626.4 IRREGULAR MENSTRUAL CYCLE 10/03/2012 AISLNIN OCONNOR BEVERLY S 626.4 IRREGULAR MENSTRUAL CYCLE 10/03/2012 ARIAN US PSYD L 626.4 IRREGULAR MENSTRUAL CYCLE 10/03/2012 ARIAN US PSYD L 626.4 IRREGULAR MENSTRUAL CYCLE 10/03/2012 LATONYA TAO APRNA S 626.4 IRREGULAR MENSTRUAL CYCLE 10/03/2012 ARIAN US PSYD L 626.4 IRREGULAR MENSTRUAL CYCLE 10/03/2012 JAVAD DAMON APRN 626.4 IRREGULAR MENSTRUAL CYCLE 10/03/2012 CLAUDE TAO APRNNDA S 626.4 IRREGULAR MENSTRUAL CYCLE 10/03/2012 [...] L 626.4 IRREGULAR MENSTRUAL CYCLE 10/03/2012 ARIAN SU PSYD L 626.4 IRREGULAR MENSTRUAL CYCLE 10/03/2012 [...] JERMAINE FERRER APRN V73.81 HPV SCREENING 10/10/2012 JERMANIE FERRER APRN V76.10 BREAST CANCER SCREENING 10/10/2012 [...] V76.2 CERVICAL CANCER SCREENING (PAP SMEAR) 10/10/2012 LOUIES COBOS MD 278.00 OBESITY 10/10/2012 LOUISE COBOS [...] OCONNOR BEVERLY S 278.00 OBESITY 10/10/2012 AISLINN COTTON BROKER, BEVERLY S V73.81 HPV SCREENING 10/10/2012 AISLINN OCONNOR BEVERLY S V76.10 BREAST CANCER SCREENING 10/10/2012 AISLINN OCONNOR BEVERLY S V76.2 CERVICAL CANCER SCREENING (PAP SMEAR) 10/10/2012 ARIAN US PSYD L 278.00 OBESITY 10/10/2012 ARIAN US PSYD L V73.81 HPV SCREENING 10/10/2012 ARIAN US PSYD L V76.10 BREAST CANCER SCREENING 10/10/2012 ARIAN US PSYD ANN L V76.2 CERVICAL CANCER SCREENING (PAP SMEAR) 10/10/2012 NESLON COTTON BROKER, JAVAD 278.00 OBESITY 10/10/2012 NELSON COTTON BROKER, JAVAD V73.81 HPV SCREENING 10/10/2012 NELSON COTTON BROKER, JAVAD V76.10 BREAST CANCER SCREENING 10/10/2012 NELSON COTTON BROKER, JAVAD V76.2 CERVICAL CANCER SCREENING (PAP SMEAR) 10/10/2012 AISLINN COTTON BROKER, BEVERLY S 278.00 OBESITY 10/10/2012 AISLINN OCONNOR, BEVERLY S V73.81 HPV SCREENING 10/10/2012 AISLINN OCONNOR BEVERLY S V76.10 BREAST CANCER SCREENING 10/10/2012 AISLINN OCONNOR BEVERLY S V76.2 CERVICAL CANCER SCREENING (PAP SMEAR) 10/10/2012 NELSON COTTON BROKER, JAVAD 278.00 OBESITY 10/10/2012 NELSON COTTON BROKER, JAVAD V73.81 HPV SCREENING 10/10/2012 NELSON COTTON BROKER, JAVAD V76.10 BREAST CANCER SCREENING 10/10/2012 NELSON COTTON BROKER, JAVAD V76.2 CERVICAL CANCER SCREENING (PAP SMEAR) [...] CERVICAL CANCER SCREENING (PAP SMEAR) 10/10/2012 NELSON COTTON BROKER, JAVAD 278.00 OBESITY 10/10/2012 NELSON COTTON BROKER, JAVAD V73.81 HPV SCREENING 10/10/2012 NELSON COTTON BROKER, JAVAD V76.10 BREAST CANCER SCREENING 10/10/2012 NELSON COTTON BROKER, JAVAD V76.2 CERVICAL CANCER SCREENING (PAP SMEAR) [...] CERVICAL CANCER SCREENING (PAP SMEAR) 10/10/2012 ARIAN SU PSYD L 278.00 OBESITY 10/10/2012 ARIAN US [...] CATALINA A 706.2 SEBACEOUS CYST 03/28/2013 NELSON COTTON BROKER, JAVAD 706.2 SEBACEOUS CYST 03/28/2013 ARIAN US [...] DAMON APRN V58.32 SUTURE REMOVAL 05/03/2013 AISLINN COTTON BROKER, BEVERLY S V58.32 SUTURE REMOVAL 05/03/2013 NELSON COTTON BROKER, JAVAD V58.32 SUTURE REMOVAL 05/03/2013 ARIAN US PSYD ANN L V58.32 SUTURE REMOVAL 05/03/2013 ARIAN US PSYD ANN L V58.32 SUTURE REMOVAL 05/03/2013 ABEBA GARZA, DAISHA L V58.32 SUTURE REMOVAL 05/03/2013 AISLINN COTTON BROKER, BEVERLY S V58.32 SUTURE REMOVAL 05/03/2013 ROXANNA COTTON BROKER, CATALINA A V58.32 SUTURE REMOVAL 05/03/2013 NELSON COTTON BROKER, JAVAD V58.32 SUTURE REMOVAL 05/03/2013 ARIAN US PSYD ANN L V58.32 SUTURE REMOVAL 05/03/2013 ARIAN US PSYD ANN L V58.32 SUTURE REMOVAL 05/03/2013 AISLINN COTTON BROKER, BEVERLY S V58.32 SUTURE REMOVAL 05/03/2013 ARIAN US PSYD ANN L V58.32 SUTURE REMOVAL 05/03/2013 ARIAN US PSYD ANN L V58.32 SUTURE REMOVAL 05/03/2013 ROXANNA COTTON BROKER, CATALINA A V58.32 SUTURE REMOVAL 05/03/2013 ARIAN [...] L 789.07 ABDOMINAL PAIN GENERALIZED 06/05/2013 AISLINN COTTON BROKER, BEVERLY S 250.00 DIABETES II CONTROLLED (UNCOMPLICATED) 06/05/2013 AISLINN COTTON BROKER, BEVERLY S 784.0 HEADACHE 06/05/2013 AISLINN COTTON BROKER, BEVERLY S 789.07 ABDOMINAL PAIN GENERALIZED 06/05/2013 ARIAN US PSYD L 250.00 DIABETES II CONTROLLED (UNCOMPLICATED) 06/05/2013 ARIAN US PSYD ANN L 784.0 HEADACHE 06/05/2013 ARIAN US PSYD ANN L 789.07 ABDOMINAL PAIN GENERALIZED 06/05/2013 WILLARD DO, LUCIANO K 250.00 DIABETES II CONTROLLED (UNCOMPLICATED) 06/05/2013 WILLARD DO, LUCIAON K 784.0 HEADACHE 06/05/2013 WILLARD DO, LUCIANO [...] L 789.07 ABDOMINAL PAIN GENERALIZED 06/05/2013 AISLINN COTTON BROKER, BEVERLY S 250.00 DIABETES II CONTROLLED (UNCOMPLICATED) 06/05/2013 AISLINN COTTON BROKER, BEVERLY S 784.0 HEADACHE 06/05/2013 AISLINN COTTON BROKER, BEVERLY S 789.07 ABDOMINAL PAIN GENERALIZED 06/05/2013 [...] L 789.07 ABDOMINAL PAIN GENERALIZED 06/05/2013 AISLINN COTTON BROKER, BEVERLY S 250.00 DIABETES II CONTROLLED (UNCOMPLICATED) 06/05/2013 AISLINN COTTON BROKER, BEVERLY S 784.0 HEADACHE 06/05/2013 AISLINN COTTON BROKER, BEVERLY S 789.07 ABDOMINAL PAIN GENERALIZED 06/05/2013 ARIAN US PSYD ANN L 250.00 DIABETES II CONTROLLED (UNCOMPLICATED) 06/05/2013 ARIAN US PSYD ANN L 784.0 HEADACHE 06/05/2013 ARIAN US PSYD ANN L 789.07 ABDOMINAL PAIN GENERALIZED 06/05/2013 NELSON COTTON BROKER, JAVAD 250.00 DIABETES II CONTROLLED (UNCOMPLICATED) 06/05/2013 NELSON COTTON BROKER, JAVAD 784.0 HEADACHE 06/05/2013 NELSON COTTON BROKER, JAVAD 789.07 ABDOMINAL PAIN GENERALIZED 06/05/2013 AISLINN COTTON BROKER, BEVERLY S 250.00 DIABETES II CONTROLLED (UNCOMPLICATED) 06/05/2013 AISLINN COTTON BROKER, BEVERLY S 784.0 HEADACHE 06/05/2013 AISLINN COTTON BROKER, BEVERLY S 789.07 ABDOMINAL PAIN GENERALIZED 06/05/2013 NELSON COTTON BROKER, JAVAD 250.00 DIABETES II CONTROLLED (UNCOMPLICATED) 06/05/2013 NELSON COTTON BROKER, JAVAD 784.0 HEADACHE 06/05/2013 NELSON COTTON BROKER, JAVAD 789.07 ABDOMINAL PAIN GENERALIZED 06/05/2013 ARIAN [...] L 789.07 ABDOMINAL PAIN GENERALIZED 06/05/2013 AISLINN COTTON BROKER, BEVERLY S 250.00 DIABETES II CONTROLLED (UNCOMPLICATED) 06/05/2013 AISLINN COTTON BROKER, BEVERLY S 784.0 HEADACHE 06/05/2013 AISLINN COTTON BROKER, BEVERLY S 789.07 ABDOMINAL PAIN GENERALIZED 06/05/2013 ROXANNA COTTON BROKER, CATALINA A 250.00 DIABETES II CONTROLLED (UNCOMPLICATED) 06/05/2013 ROXANNA COTTON BROKER, CATALINA A 784.0 HEADACHE 06/05/2013 ROXANNA COTTON BROKER, CATALINA A 789.07 ABDOMINAL PAIN GENERALIZED 06/05/2013 NELSON COTTON BROKER, JAVAD 250.00 DIABETES II CONTROLLED (UNCOMPLICATED) 06/05/2013 NELSON COTTON BROKER, JAVAD 784.0 HEADACHE 06/05/2013 NELSON COTTON BROKER, JAVAD 789.07 ABDOMINAL PAIN GENERALIZED 06/05/2013 ARIAN US PSYD ANN L 250.00 DIABETES II CONTROLLED (UNCOMPLICATED) 06/05/2013 ABEBA GARZA, DAISHA L 784.0 HEADACHE 06/05/2013 ARIAN US PSYD ANN L 789.07 ABDOMINAL PAIN GENERALIZED 06/05/2013 ARIAN US PSYD ANN L 250.00 DIABETES II CONTROLLED (UNCOMPLICATED) 06/05/2013 ARIAN US PSYD ANN L 784.0 HEADACHE 06/05/2013 ARIAN SU PSYD ANN L 789.07 ABDOMINAL PAIN GENERALIZED [...] ANN L 454.8 VARICOSE VEINS 06/21/2013 AISLINN COTTON BROKER, BEVERLY S 454.8 VARICOSE VEINS 06/21/2013 ARIAN [...] ANN L 454.8 VARICOSE VEINS 06/21/2013 NELSON COTTON BROKER, JAVAD 454.8 VARICOSE VEINS 06/21/2013 AISLINN RUIZN, BEVERLY S 454.8 VARICOSE VEINS 06/21/2013 NELSON COTTON BROKER, JAVAD 454.8 VARICOSE VEINS 06/21/2013 ARIAN US PSYD ANN L 454.8 VARICOSE VEINS 06/21/2013 ARIAN US PSYD ANN L 454.8 VARICOSE VEINS 06/21/2013 ARIAN US PSYD ANN L 454.8 VARICOSE VEINS 06/21/2013 AISLNIN RUIZN, BEVERLY S 454.8 VARICOSE VEINS 06/21/2013 JASMIN MCKNIGHT APRNIDI A 454.8 VARICOSE VEINS 06/21/2013 NELSON COTTON BROKER, JAVAD 454.8 VARICOSE VEINS 06/21/2013 ARIAN US PSYD ANN L 454.8 VARICOSE VEINS 06/21/2013 ARIAN US PSYD ANN L 454.8 VARICOSE VEINS 06/21/2013 AISLINN COTTON BROKER, BEVERLY S 454.8 VARICOSE VEINS 06/21/2013 ARIAN US PSYD ANN L 454.8 VARICOSE VEINS 06/21/2013 ARIAN US PSYD ANN L 454.8 VARICOSE VEINS 06/21/2013 CATALINA MCKNIGHT APRN A 454.8 VARICOSE VEINS 06/21/2013 ARIAN US PSYD ANN L 454.8 VARICOSE VEINS 06/21/2013 ARIAN US PSYD ANN L 454.8 VARICOSE VEINS 06/21/2013 ARIAN US PSYD ANN L 454.8 VARICOSE VEINS 07/12/2013 SOCO JOAQUIN COTTON BROKER Ot 724.4 07/12/2013 SOCO JOAQUIN COTTON BROKER Ot 729.5 07/12/2013 SOCO JOAQUIN COTTON BROKER Ot 729.81 07/17/2013 AISLINN OCONNOR BEVERLY S 729.5 PAIN- LEG 07/17/2013 ARIAN US PSYD L 729.5 PAIN- LEG 07/17/2013 [...] BEVERLY S 729.5 PAIN- LEG 07/17/2013 NELSON COTTON BROKER, JAVAD 729.5 PAIN- LEG 07/17/2013 ARIAN US PSYD ANN L 729.5 PAIN- LEG 07/17/2013 ARIAN US PSYD ANN L 729.5 PAIN- LEG 07/17/2013 ARIAN US PSYD ANN L 729.5 PAIN- LEG 07/17/2013 AISLINN OCONNOR BEVERLY S 729.5 PAIN- LEG 07/17/2013 ROXANNA COTTON BROKER, CATALINA A 729.5 PAIN- LEG 07/17/2013 NELSON COTTON BROKER, JAVAD 729.5 PAIN- LEG 07/17/2013 ABEBA GARZA, [...] TAO APRNNDA S 786.50 CHEST PAIN 09/11/2013 ABEAB GARZA, DAISHA L 786.50 CHEST PAIN 09/11/2013 NELSON COTTON BROKER, JAVAD 786.50 CHEST PAIN 09/11/2013 AISLINN OCONNOR BEVERLY S 786.50 CHEST PAIN 09/11/2013 NELSON COTTON BROKER, JAVAD 786.50 CHEST PAIN 09/11/2013 ABEBA GARZA, [...] UNSPECIFIED SITE WITHOUT MYELOPATHY 10/28/2013 SOCO JOAQUIN COTTON BROKER Ot 724.4 10/28/2013 SOCO JOAQUIN COTTON BROKER Ot 729.5 11/30/2013 BEVERLY TAO APRN S [...] MD Ot 722.52 LUMB/LUMBOSAC DISC DEGEN 12/18/2013 ZEHAR SINHA MD Ot V58.69 OTH MED,LT,CURRENT USE 12/18/2013 ZEHRA SINHA MD Ot V85.32 BODY MASS INDEX 32.0-32.9, ADULT 02/12/2014 AISLINN OCONNOR, BEVERLY S 626.4 IRREGULAR MENSTRUAL CYCLE 02/12/2014 AISLINN OCONNOR, BEVERLY S V04.81 FLU SHOT 02/12/2014 ROXANNA APRN, CATALINA A 626.4 IRREGULAR MENSTRUAL CYCLE 02/12/2014 ROXANNACARLOS EDUARDO OCONNOR, CATALINA A V04.81 FLU SHOT 02/12/2014 NELSON COTTON BROKER, JAVAD 626.4 IRREGULAR MENSTRUAL CYCLE 02/12/2014 NELSON COTTON BROKER, JAVAD V04.81 FLU SHOT 02/12/2014 ARIAN US [...] US PSYD L V04.81 FLU SHOT 02/12/2014 CAATLINA MCKNIGHT APRN A 626.4 IRREGULAR MENSTRUAL CYCLE [...] UNSPECIFIED 04/16/2014 Ot 611.71 04/16/2014 DERRELL MEAD GREENHOUSE ASSISTANT Ot 454.9 04/16/2014 DERRELL MEAD GREENHOUSE ASSISTANT Ot 729.5 04/16/2014 DERRELL MEAD GREENHOUSE ASSISTANT Ot 823.80 04/16/2014 DERRELL MEAD GREENHOUSE ASSISTANT Ot E928.9 04/16/2014 BEVERLY TAO GREENHOUSE ASSISTANT Ot 719.45 04/16/2014 BEVERLY TAO GREENHOUSE ASSISTANT Ot 722.10 04/16/2014 BEVERLY TAO GREENHOUSE ASSISTANT Ot 786.50 04/16/2014 ZEHRA SINHA MD Ot 278.00 04/16/2014 ZEHRA SINHA MD Ot 722.52 04/16/2014 ZEHRA SINHA MD Ot V58.69 04/16/2014 ZEHRA SINHA MD Ot V85.34 04/16/2014 ZEHRA SINHA MD Ot 278.00 04/16/2014 ZEHRA SINHA MD Ot 722.52 04/16/2014 ZEHRA SINHA MD Ot V58.67 04/16/2014 ZEHRA SINHA MD Ot V58.69 04/16/2014 ZEHRA SIHNA MD Ot V85.35 04/16/2014 ZEHRA SINHA MD [...] 789.07 04/30/2014 Ot 611.71 04/30/2014 CHONG HORTON GREENHOUSE ASSISTANT Ot 611.71 04/30/2014 ZEHRA SINHA MD Ot [...] SCREENING 05/07/2014 Ot 611.71 05/07/2014 DERRELL MEAD GREENHOUSE ASSISTANT Ot 454.9 05/07/2014 DERRELL MEAD GREENHOUSE ASSISTANT Ot 729.5 05/07/2014 DERRELL MEAD GREENHOUSE ASSISTANT Ot 823.80 05/07/2014 DERRELL MEAD GREENHOUSE ASSISTANT Ot E928.9 05/07/2014 BEVERLY TAO GREENHOUSE ASSISTANT Ot 719.45 05/07/2014 BEVERLY TAO GREENHOUSE ASSISTANT Ot 722.10 05/07/2014 BEVERLY TAO GREENHOUSE ASSISTANT Ot 786.50 05/07/2014 ZEHRA SINHA MD Ot [...] 789.07 05/14/2014 Ot 611.71 05/14/2014 CHONG HORTON GREENHOUSE ASSISTANT Ot 611.71 05/14/2014 ZEHRA SINHA MD Ot [...] V85.35 05/14/2014 Ot 611.71 05/14/2014 DERRELL MEAD GREENHOUSE ASSISTANT Ot 454.9 05/14/2014 DERRELL MEAD GREENHOUSE ASSISTANT Ot 729.5 05/14/2014 DERRELL MEAD GREENHOUSE ASSISTANT Ot 823.80 05/14/2014 DERRELL MEAD GREENHOUSE ASSISTANT Ot E928.9 05/14/2014 BEVERLY TAO GREENHOUSE ASSISTANT Ot 719.45 05/14/2014 BEVERLY TAO GREENHOUSE ASSISTANT Ot 722.10 05/14/2014 BEVERLY TAO GREENHOUSE ASSISTANT Ot 786.50 05/14/2014 ZEHRA SINHA MD Ot 278.00 05/14/2014 ZEHRA SINHA MD Ot 722.52 05/14/2014 ZEHRA SINHA MD Ot V58.69 05/14/2014 ZEHRA SINHA MD Ot V85.34 05/14/2014 ZEHRA SINHA MD Ot 278.00 05/14/2014 ZEHRA SINHA MD Ot 722.52 05/14/2014 ZEHRA SINHA MD Ot V58.67 05/14/2014 ZEHRA SINHA MD Ot V58.69 05/14/2014 ZEHRA SINHA MD Ot V85.35 05/15/2014 Ot 611.71 05/15/2014 DERRELL MEAD GREENHOUSE ASSISTANT Ot 454.9 05/15/2014 DERRELL MEAD GREENHOUSE ASSISTANT Ot 729.5 05/15/2014 DERRELL MEAD GREENHOUSE ASSISTANT Ot 823.80 05/15/2014 DERRELL MEAD GREENHOUSE ASSISTANT Ot E928.9 05/15/2014 BEVERLY TAO GREENHOUSE ASSISTANT Ot 719.45 05/15/2014 BEVERLY TAO GREENHOUSE ASSISTANT Ot 722.10 05/15/2014 BEVERLY TAO GREENHOUSE ASSISTANT Ot 786.50 05/15/2014 ZEHRA ISNHA MD Ot 278.00 05/15/2014 ZEHRA SINHA MD [...] MCKNIGHT APRN Ot V76.12 07/18/2014 CATALINA MCKNIGHT COTTON BROKER Ot V76.12 07/18/2014 Ot 787.01 07/18/2014 Ot 787.91 07/18/2014 Ot 789.1 07/18/2014 Ot 787.01 07/18/2014 Ot 789.07 07/18/2014 Ot 611.71 07/18/2014 CHONG HORTON GREENHOUSE ASSISTANT Ot 611.71 07/18/2014 CATALINA MCKNIGHT COTTON BROKER Ot V76.12 08/15/2014 CATALINA MCKNIGHT APRN Ot [...] DELMA R Ot V57.1 08/28/2014 CATALINA MCKNIGHT COTTON BROKER Ot V76.12 08/29/2014 SWEET PA, DELMA R [...] DERMATITIS, UNSPECIF 06/06/2015 ANGIE KIRKPATRICK Ot Z79.4 ACCESS COORDINATOR (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 OF INSULIN 06/06/2015 ZEHRA SINHA [...] 08/21/2015 Ot 611.71 MASTODYNIA 08/21/2015 CHONG HORTON GREENHOUSE ASSISTANT Ot 611.71 MASTODYNIA 08/21/2015 Ot 787.01 NAUSEA WITH VOMITING 08/21/2015 Ot 787.91 DIARRHEA 08/21/2015 Ot 789.1 HEPATOMEGALY 08/21/2015 Ot 787.01 NAUSEA WITH VOMITING 08/21/2015 Ot 789.07 ABDOMINAL PAIN, GENERALIZED 08/21/2015 Ot 611.71 MASTODYNIA 08/21/2015 CHONG HORTON GREENHOUSE ASSISTANT Ot 611.71 MASTODYNIA 08/23/2015 ZEHRA SINHA MD Ot M51.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 DISC DISORDERS W RADICULO 08/23/2015 ZEHRA SINHA MD Ot Z79.899 OTHER ASSISTED (CURRENT) DRUG THERAPY 09/05/2015 ZEHRA SINHA MD, Ot M51.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 DISC DISORDERS W RADICULO 09/05/2015 EZHRA SINHA MD, Ot Z79.899 OTHER ACCESS COORDINATOR (CURRENT) DRUG THERAPY 09/11/2015 ANGIE KIRKPATRICK Ot E11.9 TYPE 2 DIABETES MELLITUS WITHOUT COMPLIC 09/11/2015 ANGIE KIRKPATRICK Ot L25.9 UNSPECIFIED CONTACT DERMATITIS, UNSPECIF 09/11/2015 ANGIE KIRKPATRICK Ot Z79.4 ACCESS COORDINATOR (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 OF INSULIN 09/11/2015 ZEHRA SINHA MD, Ot M51.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 DISC DISORDERS W RADICULO 09/11/2015 ZEHRA SINHA MD, Ot Z79.899 OTHER ACCESS COORDINATOR (CURRENT) DRUG THERAPY 11/12/2015 ANGIE KIRKPATRICK Ot [...] PAIN IN LEFT LEG 2016 SOCO JOAQUIN COTTON BROKER Ot R20.2 PARESTHESIA OF SKIN 2016 SOCO JOAQUIN COTTON BROKER Ot Z79.4 ASSISTED (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 OF INSULIN 2016 SOCO JOAQUIN COTTON BROKER Ot Z79.82 ACCESS COORDINATOR (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 OF ASPIRIN 2016 SOCO JOAQUIN COTTON BROKER Ot Z79.899 OTHER ACCESS COORDINATOR (CURRENT) DRUG THERAPY 03/05/2016 SOCO JOAQUIN COTTON BROKER Ot E11.9 TYPE 2 DIABETES MELLITUS WITHOUT COMPLIC 03/05/2016 SOCO JOAQUIN COTTON BROKER Ot I10 ESSENTIAL (PRIMARY) HYPERTENSION 03/05/2016 SOCO JOAQUIN COTTON BROKER Ot M25.552 PAIN IN LEFT HIP 03/05/2016 SOCO JOAQUIN COTTON BROKER Ot M54.5 LOW BACK PAIN 03/05/2016 SOCO JOAQUIN COTTON BROKER Ot M79.605 PAIN IN LEFT LEG 03/05/2016 SOCO JOAQUIN COTTON BROKER Ot R20.2 PARESTHESIA OF SKIN 03/05/2016 SOCO JOAQUIN COTTON BROKER Ot Z79.4 ASSISTED (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 OF INSULIN 03/05/2016 SOCO JOAQUIN COTTON BROKER Ot Z79.82 ACCESS COORDINATOR (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 OF ASPIRIN 03/05/2016 SOCO JOAQUIN COTTON BROKER Ot Z79.899 OTHER ACCESS COORDINATOR (CURRENT) DRUG THERAPY 03/10/2016 SOCO JOAQUIN COTTON BROKER Ot E11.9 TYPE 2 DIABETES MELLITUS WITHOUT COMPLIC 03/10/2016 SOCO JOAQUIN COTTON BROKER Ot I10 ESSENTIAL (PRIMARY) HYPERTENSION 03/10/2016 SOCO JOAQUIN COTTON BROKER Ot M25.552 PAIN IN LEFT HIP 03/10/2016 SOCO JOAQUIN COTTON BROKER Ot M54.5 LOW BACK PAIN 03/10/2016 SOCO JOAQUIN COTTON BROKER Ot M79.605 PAIN IN LEFT LEG 03/10/2016 SOCO JOAQUIN COTTON BROKER Ot R20.2 PARESTHESIA OF SKIN 03/10/2016 SOCO JOAQUIN COTTON BROKER Ot Z79.4 ASSISTED (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 OF INSULIN 03/10/2016 SOCO JOAQUIN COTTON BROKER Ot Z79.82 ACCESS COORDINATOR (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 OF ASPIRIN 03/10/2016 SOCO JOAQUIN COTTON BROKER Ot Z79.899 OTHER ASSISTED (CURRENT) DRUG THERAPY 03/18/2016 Ot 787.01 NAUSEA [...] 03/18/2016 Ot 611.71 MASTODYNIA 03/18/2016 CHONG HORTON GREENHOUSE ASSISTANT Ot 611.71 MASTODYNIA 03/19/2016 ANGIE KIRKPATRICK Ot G89.29 OTHER CHRONIC PAIN 03/19/2016 ANGIE KIRKPATRICK Ot M54.5 LOW BACK PAIN 03/20/2016 Ot 787.01 NAUSEA WITH VOMITING 03/20/2016 Ot 787.91 DIARRHEA 03/20/2016 Ot 789.1 HEPATOMEGALY 03/20/2016 Ot 787.01 NAUSEA WITH VOMITING 03/20/2016 Ot 789.07 ABDOMINAL PAIN, GENERALIZED 03/20/2016 Ot 611.71 MASTODYNIA 03/20/2016 CHONG HORTON GREENHOUSE ASSISTANT Ot 611.71 MASTODYNIA 03/20/2016 ZEHRA SINHA MD Ot E11.9 TYPE 2 DIABETES MELLITUS WITHOUT COMPLIC 03/20/2016 ZEHRA SINHA MD Ot M51.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 DISC DISORDERS W RADICULO 03/20/2016 ZEHRA SINHA MD Ot Z79.4 ASSISTED (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 OF INSULIN 04/01/2016 ZEHRA SINHA MD Ot E11.9 TYPE 2 DIABETES MELLITUS WITHOUT COMPLIC 04/01/2016 ZEHRA SINHA MD Ot M51.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 DISC DISORDERS W RADICULO 04/01/2016 ZEHRA SINHA MD Ot Z79.4 ASSISTED (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 OF INSULIN 04/10/2016 ZEHRA SINHA MD Ot M54.5 LOW BACK PAIN 04/22/2016 ZEHRA SINHA MD Ot M54.5 LOW BACK PAIN 05/01/2016 ZEHRA SINHA MD, Ot M54.5 LOW BACK PAIN 05/05/2016 ZEHRA SINHA MD Ot E11.9 TYPE 2 DIABETES MELLITUS WITHOUT COMPLIC 05/05/2016 ZEHRA SINHA MD Ot M51.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 DISC DISORDERS W RADICULO 05/05/2016 ZEHRA SINHA MD Ot Z79.4 ASSISTED (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 OF INSULIN 06/02/2016 SOCO JOAQUIN APRN Ot E11.65 TYPE 2 DIABETES MELLITUS WITH HYPERGLYCE 06/02/2016 SOCO JOAQUIN APRN Ot N39.0 URINARY TRACT INFECTION, SITE NOT SPECIF 06/02/2016 SOCO JOAQUIN APRN Ot R10.13 EPIGASTRIC PAIN 06/02/2016 SOCO JOAQUIN APRN Ot Z79.4 ACCESS COORDINATOR (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 OF INSULIN 06/02/2016 SOCO JOAQUIN APRN Ot Z79.82 ACCESS COORDINATOR (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 OF ASPIRIN 06/02/2016 SOCO JOAQUIN APRN Ot Z79.84 ASSISTED (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 OF ORAL HYPOGLYC 06/02/2016 SOCO JOAQUIN APRN Ot Z79.899 OTHER ASSISTED (CURRENT) DRUG THERAPY 06/03/2016 ZEHRA SINHA MD Ot M54.5 LOW BACK PAIN 06/04/2016 SOCO JOAQUIN APRN Ot E11.65 TYPE 2 DIABETES MELLITUS WITH HYPERGLYCE 06/04/2016 SOCO JOAQUIN APRN Ot N39.0 URINARY TRACT INFECTION, SITE NOT SPECIF 06/04/2016 SOCO JOAQUIN APRN Ot R10.13 EPIGASTRIC PAIN 06/04/2016 SOCO JOAQUIN APRN Ot Z79.4 ACCESS COORDINATOR (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 OF INSULIN 06/04/2016 SOCO JOAQUIN APRN Ot Z79.82 ASSISTED (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 OF ASPIRIN 06/04/2016 SOCO JOAQUIN APRN Ot Z79.84 ASSISTED (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 OF ORAL HYPOGLYC 06/04/2016 SOCO JOAQUIN APRN Ot Z79.899 OTHER ACCESS COORDINATOR (CURRENT) DRUG THERAPY 06/22/2016 ZEHRA SINHA MD, Ot M54.5 LOW BACK PAIN 07/15/2016 ZEHRA SINHA MD, Ot M54.5 LOW BACK PAIN 08/14/2016 SOCO JOAQUIN APRN Ot E11.9 TYPE 2 DIABETES MELLITUS WITHOUT COMPLIC 08/14/2016 SOCO JOAQUIN APRN Ot M54.5 LOW BACK PAIN 08/14/2016 SOCO JOAQUIN APRN Ot Z79.4 ASSISTED (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 OF INSULIN 08/14/2016 SOCO JOAQUIN APRN Ot Z79.82 ASSISTED (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 OF ASPIRIN 08/14/2016 SOCO JOAQUIN APRN Ot Z79.84 ASSISTED (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 OF ORAL HYPOGLYC 08/14/2016 SOCO JOAQUIN APRN Ot Z79.899 OTHER ACCESS COORDINATOR (CURRENT) DRUG THERAPY 09/03/2016 Ot 787.01 NAUSEA WITH VOMITING 09/03/2016 Ot 787.91 DIARRHEA 09/03/2016 Ot 789.1 HEPATOMEGALY 09/03/2016 Ot 787.01 NAUSEA WITH VOMITING 09/03/2016 Ot 789.07 ABDOMINAL PAIN, GENERALIZED 09/03/2016 Ot 611.71 MASTODYNIA 09/03/2016 CHONG HORTON GREENHOUSE ASSISTANT Ot 611.71 MASTODYNIA 09/03/2016 ZEHRA SINHA MD Ot M54.5 LOW BACK PAIN 09/04/2016 Ot 787.01 NAUSEA WITH VOMITING 09/04/2016 Ot 787.91 DIARRHEA 09/04/2016 Ot 789.1 HEPATOMEGALY 09/04/2016 Ot 787.01 NAUSEA WITH VOMITING 09/04/2016 Ot 789.07 ABDOMINAL PAIN, GENERALIZED 09/04/2016 Ot 611.71 MASTODYNIA 09/04/2016 CHONG HORTON GREENHOUSE ASSISTANT Ot 611.71 MASTODYNIA 09/04/2016 ZEHRA SINHA MD Ot M54.5 LOW BACK PAIN 09/11/2016 SOCO JOAQUIN APRN Ot E11.65 TYPE 2 DIABETES MELLITUS WITH HYPERGLYCE 09/11/2016 SOCO JOAQUIN APRN Ot N39.0 URINARY TRACT INFECTION, SITE NOT SPECIF 09/11/2016 SOCO JOAQUIN APRN Ot R10.13 EPIGASTRIC PAIN 09/11/2016 SOCO JOAQUIN APRN Ot Z79.4 ASSISTED (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 OF INSULIN 09/11/2016 SOCO JOAQUIN APRN Ot Z79.82 ASSISTED (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 OF ASPIRIN 09/11/2016 SOCO JOAQUIN APRN Ot Z79.84 ASSISTED (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 OF ORAL HYPOGLYC 09/11/2016 JOAQUINSOCO COTTON BROKER Ot Z79.899 OTHER ASSISTED (CURRENT) DRUG THERAPY 09/21/2016 BEVERLY TAO Ot M54.9 DORSALGIA, UNSPECIFIED 10/02/2016 BEVERLY TAO Ot M54.9 DORSALGIA, UNSPECIFIED 05/14/2017 DELMA PIMENTEL MD Ot E11.9 TYPE 2 DIABETES MELLITUS WITHOUT COMPLIC 05/14/2017 DELMA PIMENTEL MD Ot E78.00 PURE HYPERCHOLESTEROLEMIA, UNSPECIFIED 05/14/2017 DELMA PIMENTEL MD Ot F31.9 BIPOLAR DISORDER, UNSPECIFIED 05/14/2017 DELMA PIMENTEL MD Ot F41.9 ANXIETY DISORDER, UNSPECIFIED 05/14/2017 DELMA PIMENTEL MD Ot G43.909 MIGRAINE, UNSP, NOT INTRACTABLE, WITHOUT 05/14/2017 DELMA PIMENTEL MD Ot H92.02 OTALGIA, LEFT EAR 05/14/2017 DELMA PIMENTEL MD Ot Z79.4 ACCESS COORDINATOR (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 OF INSULIN 05/14/2017 DELMA PIMENTEL MD Ot Z79.82 ACCESS COORDINATOR (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 OF ASPIRIN 05/14/2017 DELMA PIMENTEL MD Ot Z82.49 FAMILY HX OF ISCHEM HEART DIS AND OTH DI 05/14/2017 DELMA PIMENTEL MD, Ot Z87.19 PERSONAL HISTORY OF OTHER DISEASES OF TH 05/14/2017 DELMA PIMENTEL MD, Ot Z87.59 PERSONAL HISTORY OF COMP OF PREG, CHLDBR 05/14/2017 DELMA PIMENTEL MD, Ot Z88.1 ALLERGY STATUS TO OTHER ANTIBIOTIC AGENT 05/14/2017 DELMA PIMENTEL MD, Ot Z88.8 ALLERGY STATUS TO OTH DRUG/MEDS/BIOL SUB Procedures Code Description [place] [address] A1C (IN-HOUSE) 01/07/2012 26922 ROUTINE VENIPUNCTURE 02/05/2012 45934 MICRO ALBUMIN-IN HOUSE 02/05/2012 82732 CMP 02/05/2012 [id number] GFR CALC (RESULT ONLY) 02/05/2012 61815 LIPID PANEL 02/05/2012 00768 MICROALBUMIN 02/06/2012 76609 INDIV PSYTX 45/50 MIN 02/08/2012 80110 GLUCOSE 02/15/2012 99257 INDIV PSYTX 45/50 MIN 02/15/2012 43241 INDIV PSYTX 45/50 MIN 02/29/2012 88088 INDIV PSYTX 45/50 MIN 03/14/2012 30136 US BREAST(S) ULTRASOUND, BOTH 04/06/2012 44764 INDIV PSYTX 45/50 MIN 04/07/2012 47369 PSYTX PT&/FAMILY 45 MINUTES 04/07/2012 10553 MAMMOGRAM DX, LARRY 04/11/2012 50581 MAMMOGRAM, SCREENING 04/11/2012 22714 PSYTX PT&/FAMILY 45 MINUTES 04/11/2012 45677 PSYTX PT&/FAMILY 45 MINUTES 05/02/2012 67599 PSYTX PT&/FAMILY 45 MINUTES 05/06/2012 54470 PSYTX PT&/FAMILY 45 MINUTES 05/20/2012 79011 A1C (IN-HOUSE) 05/30/2012 32393 PSYTX PT&/FAMILY 45 MINUTES 06/22/2012 03696 PSYTX PT&/FAMILY 45 MINUTES 07/20/2012 70170 GLUCOSE FINGER STICK 08/05/2012 85057 MICRO ALBUMIN-IN HOUSE 08/25/2012 55295 A1C (IN-HOUSE) 08/25/2012 75203 MICROALBUMIN 08/25/2012 93584 ROUTINE VENIPUNCTURE 08/26/2012 16101 CMP 08/26/2012 84891 LIPID PANEL 08/26/2012 [id number] GFR CALC (RESULT ONLY) 08/26/2012 08416 CBC 08/26/2012 55656 PSYTX PT&/FAMILY 45 MINUTES 09/06/2012 95953 PSYTX PT&/FAMILY 30 MINUTES 11/10/2012 89046 PSYTX PT&/FAMILY 45 MINUTES 11/10/2012 89066 OXIMETRY 12/07/2012 52324 PSYTX PT&/FAMILY 45 MINUTES 12/22/2012 92460 PSYTX PT&/FAMILY 45 MINUTES 01/05/2013 93448 A1C (IN-HOUSE) 01/09/2013 85135 PSYTX PT&/FAMILY 45 MINUTES 03/08/2013 46763 MAMMOGRAM, SCREENING 03/09/2013 09372 PSYTX PT&/FAMILY 45 MINUTES 04/25/2013 24968 EXCISION BENIGN LESION 0.6- 1 cm (spcify location in [facility] description) 04/26/2013 87758 PSYTX PT&/FAMILY 45 MINUTES 05/05/2013 72376 PSYTX PT&/FAMILY 45 MINUTES 05/19/2013 96621 ROUTINE VENIPUNCTURE 06/05/2013 55456 A1C (IN-HOUSE) 06/05/2013 11080 UA LONG DIP 06/05/2013 03602 MICRO ALBUMIN-IN HOUSE 06/05/2013 92379 CBC 06/05/2013 81574 CMP 06/05/2013 58315 LIPID PANEL 06/05/2013 84219 MICROALBUMIN 06/05/2013 [id number] GFR CALC (RESULT ONLY) 06/05/2013 29588 LIPASE 06/05/2013 58543 PSYTX PT&/FAMILY 30 MINUTES 06/21/2013 49916 PSYTX PT&/FAMILY 45 MINUTES 06/27/2013 04948 PSYTX PT&/FAMILY 45 MINUTES 07/11/2013 35375 XRAY LUMBAR SPINE 2 OR 3 VIEWS 07/17/2013 59894 XRAY HIP LEFT UNILATERAL MIN 2 VIEWS 07/17/2013 04742 XRAY TIBULA FIBULA LEFT 07/17/2013 ORTHOPEDI DERRELL MEAD 07/17/2013 66892 PSYTX PT&/FAMILY 45 MINUTES 08/02/2013 08347 MRI EXTREMITY, LOWER LEFT, W /O CONTRAST 08/17/2013 63364 PSYTX PT&/FAMILY 45 MINUTES 09/05/2013 84394 MRI SPINE (LUMBAR) W/O CONTRAST 09/11/2013 38499 A1C (IN-HOUSE) 09/11/2013 25202 PSYTX PT&/FAMILY 45 MINUTES 09/26/2013 82248 PSYTX PT&/FAMILY 45 MINUTES 10/09/2013 76841 PSYTX PT&/FAMILY 30 MINUTES 11/13/2013 38589 PSYTX PT&/FAMILY 30 MINUTES 12/21/2013 43370 PSYTX PT&/FAMILY 45 MINUTES 01/04/2014 12828 PSYTX PT&/FAMILY 45 MINUTES 02/01/2014 25734 A1C (IN-HOUSE) 02/12/2014 33367 MICRO ALBUMIN-IN HOUSE 02/12/2014 11659 TEST, URINE (IN- HOUSE) 02/12/2014 30607 MICROALBUMIN 02/13/2014 52863 ROUTINE VENIPUNCTURE 02/15/2014 12676 PSYTX PT&/FAMILY 45 MINUTES 02/15/2014 69003 LIPID PANEL 02/15/2014 49845 CBC 02/15/2014 82231 CMP 02/15/2014 [id number] GFR CALC (RESULT ONLY) 02/15/2014 30186 TSH 02/15/2014 77576 TEST, URINE (IN- HOUSE) 02/19/2014 30006 PSYTX PT&/FAMILY 45 MINUTES 03/08/2014 57653 PSYTX PT&/FAMILY 30 MINUTES 03/14/2014 35867 ROUTINE VENIPUNCTURE 03/20/2014 69083 CBC 03/20/2014 68846 MAGNESIUM 03/20/2014 75912 PSYTX PT&/FAMILY 45 MINUTES 04/10/2014 33782 PSYTX PT&/FAMILY 45 MINUTES 04/18/2014 35632 MAMMOGRAM, SCREENING 05/03/2014 29245 PSYTX PT&/FAMILY 30 MINUTES 05/08/2014 01504 A1C (IN-HOUSE) 06/26/2014 MARIO CARDONA 07/16/2014 11435 PSYTX PT&/FAMILY 30 MINUTES 07/16/2014 Results Test [...] culture - 06/02/16 11:55 Bacterial urine culture [id number] NRG COLONY COUNT <10,000 NRG FTX;REPORTABLE PLUS, NRG FREE TEXT ENTRY 2 MIXED GRAM POSITIVES <10,000/ML NRG Bacterial susceptibility panel - 06/02/16 11:55 Gentamicin [...] Status Pt. Type Provider Facility Loc./Unit Complaint [id number] 07/16/2014 12:51:00 07/16/2014 23:59:59 CLS Outpatient ARIAN US PSYD [id number] 06/05/2014 10:16:00 06/05/2014 23:59:59 CLS Outpatient ARIAN US PSYD [id number] 05/08/2014 10:38:00 05/08/2014 23:59:59 CLS Outpatient ARIAN US PSYD [id number] 05/03/2014 15:40:00 05/03/2014 23:59:59 CLS Outpatient CATALINA MCKNIGHT APRN [id number] 04/18/2014 08:38:00 04/18/2014 23:59:59 CLS Outpatient ARIAN US PSYD [id number] 04/10/2014 10:26:00 04/10/2014 23:59:59 CLS Outpatient ARIAN US PSYD [id number] 03/20/2014 14:34:00 03/20/2014 23:59:59 CLS Outpatient BEVERLY TAO APRN [id number] 03/14/2014 16:06:00 03/14/2014 23:59:59 CLS Outpatient ARIAN US PSYD [id number] 03/08/2014 08:16:00 03/08/2014 23:59:59 CLS Outpatient ARIAN US PSYD [id number] 02/20/2014 12:44:00 02/20/2014 23:59:59 CLS Outpatient JAVAD DAMON APRN [id number] 02/19/2014 15:05:00 02/19/2014 23:59:59 CLS Outpatient CATALINA MCKNIGHT APRN [id number] 02/15/2014 08:52:00 02/15/2014 23:59:59 CLS Outpatient BEVERLY TAO APRN [id number] 02/01/2014 13:41:00 02/01/2014 23:59:59 CLS Outpatient ARIAN US PSYD L [id number] 01/04/2014 10:49:00 01/04/2014 23:59:59 CLS Outpatient ARIAN US PSYD L [id number] 12/21/2013 10:30:00 12/21/2013 23:59:59 CLS Outpatient ARIAN US PSYD L [id number] 11/30/2013 17:09:00 11/30/2013 23:59:59 CLS Outpatient BEVERLY TAO APRN [id number] 11/21/2013 12:44:00 11/21/2013 23:59:59 CLS Outpatient JAVAD DAMON APRN [id number] 11/21/2013 12:44:00 11/21/2013 23:59:59 CLS Outpatient MADAI DAMON APRNETTE [id number] 11/13/2013 12:34:00 11/13/2013 23:59:59 CLS Outpatient ARIAN US PSYD L [id number] 10/26/2013 12:58:00 10/26/2013 23:59:59 CLS Outpatient BEVERLY TAO APRN [id number] 10/09/2013 12:45:00 10/09/2013 23:59:59 CLS Outpatient ARIAN US PSYD L [id number] 09/25/2013 13:15:00 09/25/2013 23:59:59 CLS Outpatient ARIAN US PSYD L [id number] 09/11/2013 12:15:00 09/11/2013 23:59:59 CLS Outpatient BEVERLY TAO APRN [id number] 09/04/2013 12:39:00 09/04/2013 23:59:59 CLS Outpatient ARIAN US PSYD L [id number] 08/22/2013 14:36:00 08/22/2013 23:59:59 CLS Outpatient LOUISE COBOS MD [id number] 08/17/2013 15:36:00 08/17/2013 23:59:59 CLS Outpatient LUCIANO WILLARD DO [id number] 08/01/2013 13:44:00 08/01/2013 23:59:59 CLS Outpatient ARIAN US PSYD [id number] 07/17/2013 10:27:00 07/17/2013 23:59:59 CLS Outpatient BEVERLY TAO APRN [id number] 07/11/2013 13:05:00 07/11/2013 23:59:59 CLS Outpatient ARIAN US PSYD [id number] 06/27/2013 13:07:00 06/27/2013 23:59:59 CLS Outpatient ARIAN US PSYD [id number] 06/21/2013 16:35:00 06/21/2013 23:59:59 CLS Outpatient ARIAN US PSYD [id number] 06/06/2013 12:44:00 06/06/2013 23:59:59 CLS Outpatient CHANTELLSOURAV JERMAINE OCONNOR [id number] 06/05/2013 08:29:00 06/05/2013 23:59:59 CLS Outpatient LOUISE COBOS MD [id number] 05/19/2013 12:44:00 05/19/2013 23:59:59 CLS Outpatient ARIAN US PSYD [id number] 05/05/2013 12:45:00 05/05/2013 23:59:59 CLS Outpatient ARIAN US PSYD [id number] 05/03/2013 14:18:00 05/03/2013 23:59:59 CLS Outpatient HARLEEN LOU APRN [id number] 04/25/2013 15:33:00 04/25/2013 23:59:59 CLS Outpatient HARLEEN LOU APRN [id number] 04/21/2013 12:55:00 04/21/2013 23:59:59 CLS Outpatient ARIAN US PSYD [id number] 03/28/2013 15:28:00 03/28/2013 23:59:59 CLS Outpatient BEVERLY TAO APRN [id number] 03/09/2013 15:35:00 03/09/2013 23:59:59 CLS Outpatient CATALINA MCKNIGHT APRN [id number] 03/06/2013 13:00:00 03/06/2013 23:59:59 CLS Outpatient ARIAN US PSYD [id number] 03/02/2013 11:33:00 03/02/2013 23:59:59 CLS Outpatient JERMAINE FERRER APRN [id number] 03/02/2013 11:33:00 03/02/2013 23:59:59 CLS Outpatient JERMAINE FERRER APRN Yisel [id number] 01/11/2013 13:50:00 01/11/2013 23:59:59 CLS Outpatient SUDHEER MORRIS LUCIANO Reji [id number] 01/05/2013 15:37:00 01/05/2013 23:59:59 CLS Outpatient ARIAN US PSYD [id number] 12/16/2012 10:54:00 12/16/2012 23:59:59 CLS Outpatient ARIAN US PSYD [id number] 06/21/2012 12:53:00 06/21/2012 23:59:59 CLS Outpatient [id number] 06/09/2012 12:38:00 06/09/2012 23:59:59 CLS Outpatient [id number] 05/30/2012 14:42:00 05/30/2012 23:59:59 CLS Outpatient [id number] 05/20/2012 10:48:00 05/20/2012 23:59:59 CLS Outpatient ARIAN US PSYD [id number] 05/06/2012 10:52:00 05/06/2012 23:59:59 CLS Outpatient [id number] 04/26/2012 12:48:00 04/26/2012 23:59:59 CLS Outpatient ARIAN US PSYD [id number] 04/11/2012 12:42:00 04/11/2012 23:59:59 CLS Outpatient ARIAN US PSYD [id number] 04/06/2012 13:34:00 04/06/2012 23:59:59 CLS Outpatient BEVERLY TAO APRN [id number] 03/31/2012 11:04:00 03/31/2012 23:59:59 CLS Outpatient [id number] 03/14/2012 12:46:00 03/14/2012 23:59:59 CLS Outpatient [id number] 02/29/2012 12:45:00 02/29/2012 23:59:59 CLS Outpatient [id number] 01/27/2012 10:14:02 01/27/2012 23:59:59 CLS Outpatient ARIAN US PSYD Eunice [id number] 12/08/2012 10:45:00 Document Registration [id number] 12/07/2012 09:39:00 Document Registration [id number] 12/01/2012 11:35:00 Document Registration [id number] 11/10/2012 14:46:00 Document Registration [id number] 10/29/2012 13:36:00 Document Registration [id number] 09/13/2012 09:57:00 Document Registration [id number] 09/06/2012 13:33:00 Document Registration [id number] 08/26/2012 09:17:00 Document Registration [id number] 08/08/2012 10:43:00 Document Registration [id number] 08/05/2012 14:59:00 Document Registration [id number] 07/19/2012 12:55:00 Document Registration [id number] 05/13/2017 01:26:00 05/13/2017 01:37:00 DIS Outpatient LOREN GAYLE, DELMA Quintana [facility] ER LEFT EAR PAIN-BUG WAS IN EAR-HURTS [id number] 10/28/2016 08:54:00 10/28/2016 09:50:00 DIS Outpatient BEVERLY TAO [employer]IST[employer] [facility] REHAB BULGING DISC L3-4 L4-5 [id number] 08/14/2016 10:19:00 08/14/2016 11:53:00 DIS Emergency SOCO JOAQUIN [employer] [facility] ER BACK/LEG PAIN [id number] 06/25/2016 11:01:00 07/15/2016 09:25:00 DIS Outpatient ZEHRA SINHA MD [facility] REHAB LUMBAGO [id number] 06/02/2016 11:47:00 06/02/2016 13:30:00 DIS Outpatient SOCO JOAQUIN [employer] [facility] ER UPPER ABD PAIN [id number] 05/22/2016 10:19:00 05/22/2016 23:59:59 CLS Outpatient BEVERLY TAO [facility] RAD SCREENING [id number] 05/01/2016 13:15:00 05/01/2016 14:15:00 DIS Outpatient ZEHRA SINHA MD [facility] REHAB LUMBAGO [id number] 03/20/2016 08:18:00 03/20/2016 09:14:00 DIS Outpatient ZEHRA SINHA MD [facility] CARD M51.16 [id number] 2016 15:06:00 2016 16:06:00 DIS Emergency SOCO JOAQUIN APRN [facility] ER SHOULDER PAIN [id number] 12/04/2015 11:00:00 12/04/2015 23:59:59 CLS Outpatient ZEHRA SINHA MD [facility] RAD LOW BACK PAIN [id number] 11/12/2015 14:29:00 11/12/2015 16:16:00 DIS Emergency ANGIE KIRKPATRICK [facility] ER BACK PAIN [id number] 08/23/2015 10:08:00 08/23/2015 11:46:00 DIS Outpatient ZEHRA SINHA MD [facility] CARD DISC DISORDER [id number] 06/06/2015 20:35:00 06/06/2015 21:53:00 DIS Emergency ANGIE KIRKPATRICK [facility] ER POSSIBLE ALLERGIC REACTION [id number] 05/15/2015 10:07:00 05/15/2015 23:59:59 CLS Outpatient BEVERLY TAO [facility] RAD [id number] 10/13/2014 19:11:00 10/13/2014 19:59:00 DIS Emergency TYREE HENNESSY MD [facility] ER [id number] 09/19/2014 13:26:00 09/19/2014 14:05:00 DIS Outpatient DELMA DUFFY [facility] REHAB BACK PAIN/ RADICULOPATHY [id number] 05/15/2014 09:00:00 05/15/2014 23:59:59 CLS Outpatient CATALINA MCKNIGHT [employer] [facility] RAD [id number] 03/17/2014 11:29:00 03/17/2014 14:40:00 DIS Emergency DELMA PIMENTEL MD [facility] ER [id number] 01/15/2014 14:12:00 01/15/2014 23:59:59 CLS Outpatient ZEHRA SINHA MD [facility] CARD [id number] 12/18/2013 14:14:00 12/18/2013 15:11:00 DIS Outpatient ZEHRA SINHA MD [facility] CARD [id number] 11/20/2013 13:10:00 11/20/2013 23:59:59 CLS Outpatient ZEHRA SINHA MD [facility] CARD [id number] 10/28/2013 11:22:00 10/28/2013 11:58:00 DIS Emergency SOCO JOAQUIN [employer] [facility] ER [id number] 09/25/2013 08:55:00 09/25/2013 23:59:59 CLS Outpatient BEVERLY TAO [employer]IST[employer] [facility] RAD [id number] 08/28/2013 08:04:00 08/28/2013 23:59:59 CLS Outpatient DERRELL MEAD [employer] [facility] RAD [id number] 07/12/2013 13:45:00 07/12/2013 14:38:00 DIS Emergency SOCO JOAQUIN [employer] [facility] ER [id number] 03/28/2013 12:43:00 03/28/2013 23:59:59 CLS Outpatient CHONG HORTON [employer] [facility] RAD RT BREAST PAIN [id number] 09/15/2012 12:06:00 09/15/2012 15:15:00 DIS Emergency BERNY CASTRO MD [facility] ER LEFT LEG/FOOT PAIN [id number] 06/11/2017 13:20:00 ACT Emergency ANGIE KIRKPATRICK [facility] ER VOMITING,ABD PAIN,WEAK [id number] 04/07/2012 14:25:00 Document Registration [id number] 01/25/2012 12:35:00 Document Registration [id number] 06/10/2011 14:07:00 Document Registration [id number] 06/05/2011 09:06:00 Document Registration [id number] 04/15/2011 21:55:00 Document Registration [id number] 07/09/2010 21:31:00 Document Registration
--- NOTE | 2017-06-11 14:04 | ED Abdominal Pain ---
General Chief Complaint: Abdominal/GI Problems Stated Complaint: VOMITING,ABD PAIN,WEAK Nursing Triage Note: TO ROOM C/O VOMITING X3 SINCE 6A Sepsis Screen: No Definite Risk Source of Information: Patient Exam Limitations: No Limitations History of Present Illness Date Seen by Provider: Jun 11, 2017 Time Seen by Provider: 14:04 Initial Comments 42-year-old female patient presents to the emergency department with complaints of vomiting since 6 o'clock this morning. She reports lower abdominal pain radiating to the epigastric region. Also complains of urinary frequency. Timing/Duration: Intermittent, Other (0600 this a.m.) Severity/Quality: Aching, Cramping Location: Suprapubic Radiation: Epigastric Activities at Onset: None Modifying Factors: Worsens With Eating Allergies and Home Medications Allergies Coded Allergies: azithromycin (Unverified Allergy, Unknown, 10/28/13) CHEST PAIN prednisone (Unverified Adverse Reaction, Unknown, RAISES BLOOD SUGAR, ) Home Medications Aspirin 81 Mg Tabec, 81 MG PO DAILY, (Reported) Cephalexin 500 Mg Capsule, 500 MG PO TID Prescribed by: ANGIE MAS on 06/11/171702 Citalopram Hydrobromide 20 Mg Tablet, 1 EACH PO BID, (Reported) Hum Insulin Nph/Reg Insulin Hm 10 Ml Vial, 110 UNITS SQ BID, (Reported) Lamotrigine 150 Mg Tablet, 150 MG PO DAILY, (Reported) Liraglutide 0.6 Mg/0.1 Ml Pen.injctr, 1.8 MG SC HS, (Reported) Losartan Potassium 25 Mg Tablet, 1 EACH PO BID, (Reported) Ondansetron 8 Mg Tab.rapdis, 8 MG PO Q6H PRN for NAUSEA/VOMITING-1ST LINE Prescribed by: ANGIE MAS on 06/11/171702 Phenazopyridine HCl 100 Mg Tablet, 100 MG PO Q8H PRN for pain Prescribed by: ANGIE MAS on 06/11/171702 Pioglitazone Hcl 45 Mg Tablet, 45 MG PO DAILY, (Reported) Simvastatin 40 Mg Tablet, 2 TAB PO DAILY, (Reported) Patient Home Medication List Home Medication List Reviewed: Yes Review of Systems Constitutional: No chills, No fever, malaise Respiratory: No Symptoms Reported Cardiovascular: No Symptoms Reported Gastrointestinal: See HPI, Denies Constipated, Denies Diarrhea, Nausea, Vomiting Genitourinary: See HPI, Denies Burning, Frequency, Denies Flank Pain Musculoskeletal: back pain Skin: no symptoms reported Psychiatric/Neurological: No Symptoms Reported All Other Systems Reviewed Negative Unless Noted: Yes (Negative excepted noted.) Past Lnxidks-Bevpwe-Csemzm Hx Patient Social History Alcohol Use: Denies Use Recreational Drug Use: No Smoking Status: Never a Smoker 2nd Hand Smoke Exposure: No Recent Foreign Travel: No Contact w/Someone Who Travel: No Recent Infectious Disease Expo: No Recent Hopitalizations: No Immunizations Up To Date Tetanus Booster (TDap): More than 5yrs PED Vaccines UTD: Yes Date of Pneumonia Vaccine: Mar 29, 2008 Date of Influenza Vaccine: Dec 28, 2016 Seasonal Allergies Seasonal Allergies: Yes Surgeries History of Surgeries: Yes (Carpal Tunnel bilat, HERNIA REPAIR, BACK SURGERY 2014) Surgeries: Section, Orthopedic Respiratory History of Respiratory Disorde: No Cardiovascular History of Cardiac Disorders: Yes Cardiac Disorders: High Cholesterol Neurological History of Neurological Disord: Yes Neurological Disorders: Headaches /Migraines Reproductive System Hx Reproductive Disorders: No Sexually Transmitted Disease: No HIV/AIDS: No Gastrointestinal History of Gastrointestinal Di: Yes Gastrointestinal Disorders: Abdominal Hernia, Irritable Bowel Musculoskeletal History of Musculoskeletal Dis: Yes Musculoskeletal Disorders: Arthritis, Chronic Back Pain Endocrine History of Endocrine Disorders: Yes (Type II, 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, Non-Insulin dep HEENT History of HEENT Disorders: No Cancer History of Cancer: No Psychosocial History of Psychiatric Problem: Yes Behavioral Health Disorders: Anxiety, Bipolar, Personality Disorder, Depression Integumentary History of Skin or Integumenta: No Blood Transfusions History of Blood Disorders: No Adverse Reaction to a Blood Tr: No Reviewed Nursing Assessment Reviewed/Agree w Nursing PMH: Yes Family Medical History Significant Family History: No Pertinent Family Hx Family Medial History: Alcoholism 19 FATHER Arthritis 19 MOTHER Cataracts 19 MOTHER Diabetes mellitus 19 FATHER 19 MOTHER FH: stroke 19 FATHER Hypercholesterolemia 19 MOTHER Hypertension 19 MOTHER No Family History of: Cardiovascular disease Glaucoma Osteoporosis Prostate cancer Physical Exam Vital Signs VS - Last 72 Hours, by Label 06/11/17 06/11/17 13:30 17:25 Temp 98.0 98.0 Pulse 102 102 Resp 18 18 B/P (MAP) 135/82 (99) 135/82 (99) Pulse Ox 98 98 O2 Delivery Nasal Cannula Capillary Refill : Less Than 3 Seconds General Appearance: WD/WN, no apparent distress HEENT: PERRL/EOMI, pharynx normal Neck: supple, normal inspection Respiratory: lungs clear, normal breath sounds, no respiratory distress, no accessory muscle use Cardiovascular: normal peripheral pulses, regular rate, rhythm, no edema, no murmur Gastrointestinal: normal bowel sounds, soft, no organomegaly, No distended, No guarding, No rebound, tenderness (Now tenderness epigastric and suprapubic), hernia (Large reducible ventral hernia without tenderness.) Extremities: no pedal edema, no calf tenderness, normal capillary refill Back: normal inspection, no vertebral tenderness, CVA tenderness (R), CVA tenderness (L) Neurologic/Psychiatric: alert, normal mood/affect, oriented x 3 Skin: normal color, warm/dry Focused Exam Evaluation Lactate Level Laboratory Tests 06/11/17 14:24: Lactic Acid Level 1.88 Lactic Acid Level Laboratory Tests Test 06/11/17 14:24 Lactic Acid Level 1.88 MMOL/L (0.50-2.00) Progress/Results/Core Measures Results/Orders Lab Results Laboratory Tests Test 06/11/17 13:45 06/11/17 13:53 06/11/17 14:24 Range/Units White Blood Count 12.1 H 4.3-11.0 10^3/uL Red Blood Count 5.29 4.35-5.85 10^6/uL Hemoglobin 15.1 11.5-16.0 G/DL Hematocrit 43 35-52 % Mean Corpuscular Volume 80 80-99 FL Mean Corpuscular Hemoglobin 29 25-34 PG Mean Corpuscular Hemoglobin Concent 36 32-36 G/DL Red Cell Distribution Width 13.0 10.0-14.5 % Platelet Count 279 130-400 10^3/uL Mean Platelet Volume 9.6 7.4-10.4 FL Neutrophils (%) (Auto) 75 42-75 % Lymphocytes (%) (Auto) 18 12-44 % Monocytes (%) (Auto) 7 0-12 % Eosinophils (%) (Auto) 0 0-10 % Basophils (%) (Auto) 1 0-10 % Neutrophils # (Auto) 9.0 H 1.8-7.8 X 10^3 Lymphocytes # (Auto) 2.2 1.0-4.0 X 10^3 Monocytes # (Auto) 0.8 0.0-1.0 X 10^3 Eosinophils # (Auto) 0.0 0.0-0.3 10^3/uL Basophils # (Auto) 0.1 0.0-0.1 10^3/uL Sodium Level 137 135-145 MMOL/L Potassium Level 3.8 3.6-5.0 MMOL/L Chloride Level 102 98-107 MMOL/L Carbon Dioxide Level 19 L 21-32 MMOL/L Anion Gap 16 H 5-14 MMOL/L Blood Urea Nitrogen 6 L 7-18 MG/DL Creatinine 0.59 L 0.60-1.30 MG/DL Estimat Glomerular Filtration Rate > 60 BUN/Creatinine Ratio 10 Glucose Level 223 H 70-105 MG/DL Calcium Level 9.6 8.5-10.1 MG/DL Total Bilirubin 0.8 0.1-1.0 MG/DL Aspartate Amino Transf (AST/SGOT) 17 5-34 U/L Alanine Aminotransferase (ALT/SGPT) 25 0-55 U/L Alkaline Phosphatase 84 40-136 U/L C-Reactive Protein High Sensitivity 2.06 H 0.00-0.50 MG/DL Total Protein 7.7 6.4-8.2 GM/DL Albumin 4.3 3.2-4.5 GM/DL Lipase 37 8-78 U/L Urine Color YELLOW Urine Clarity VERY CLOUDY H Urine pH 8 5-9 Urine Specific [place] 1.010 L 1.016-1.022 Urine Protein 3+ H NEGATIVE Urine Glucose (UA) 4+ H NEGATIVE Urine Ketones 4+ H NEGATIVE Urine Nitrite NEGATIVE NEGATIVE Urine Bilirubin NEGATIVE NEGATIVE Urine Urobilinogen NORMAL NORMAL MG/DL Urine Leukocyte Esterase 3+ H NEGATIVE Urine RBC (Auto) 2+ H NEGATIVE Urine RBC 2-5 H /HPF Urine WBC >100 H /HPF Urine Squamous Epithelial Cells 10-25 H /HPF Urine Crystals NONE /LPF Urine Bacteria LARGE H /HPF Urine Casts NONE /LPF Urine Mucus NEGATIVE /LPF Urine Culture Indicated YES Lactic Acid Level 1.88 0.50-2.00 MMOL/L Micro Results Microbiology 06/11/17 Blood Culture - Preliminary, Resulted No growth 06/11/17 Blood Culture - Preliminary, Resulted No growth 06/11/17 Urine Culture - Final, Complete Escherichia coli Strep agalactiae Group B My Orders Orders - TG,ANGIE L PA Cbc With Automated Diff (06/11/17 13:37) Comprehensive Metabolic Panel (06/11/17 13:37) Hs C Reactive Protein (06/11/17 13:37) Lipase (06/11/17 13:37) Ua Culture If Indicated (06/11/17 13:37) Saline Lock/Iv-Start (06/11/17 13:37) Urine Culture (06/11/17 13:53) Lactic Acid Analyzer (06/11/17 14:41) Blood Culture (06/11/17 14:41) Ct Abdomen/Pelvis W (06/11/17 14:41) Ondansetron Injection (Zofran Injectio (06/11/17 14:45) Saline Lock/Iv-Start (06/11/17 14:41) Ns Iv 1000 Ml (Sodium Chloride 0.9%) (06/11/17 14:41) Ketorolac Injection (Toradol Injection) (06/11/17 14:41) Saline Lock/Iv-Start (06/11/17 14:41) Ns Iv 1000 Ml (Sodium Chloride 0.9%) (06/11/17 14:41) Iohexol Injection (Omnipaque 350 Mg/Ml 1 (06/11/17 14:45) Sodium Chloride Flush (Catheter Flush Sy (06/11/17 14:45) Ns (Ivpb) (Sodium Chloride 0.9%) (06/11/17 14:45) Pharmacy Communication (Pharmacy Communi (06/11/17 14:45) Ceftriaxone Injection (Rocephin Injectio (06/11/17 16:30) Medications Given in ED Vital Signs/I&O Vital Sign - Last 12Hours 06/11/17 06/11/17 13:30 17:25 Temp 98.0 98.0 Pulse 102 102 Resp 18 18 B/P (MAP) 135/82 (99) 135/82 (99) Pulse Ox 98 98 O2 Delivery Nasal Cannula Blood Pressure Mean: 99 Diagnostic Imaging Diagonstic Imaging: CT Plain Films/CT/US/NM/MRI: abdomen, pelvis Comments FINDINGS: There is minimal atelectasis right lung base. Lung bases are otherwise clear. There is hepatomegaly with hepatic steatosis. The bile duct and gallbladder appear normal. The pancreas and spleen are normal. The adrenal glands are normal. The kidneys appear normal. There is normal enhancement of the abdominal organs and vessels following IV contrast. No evidence of aortic aneurysm with minimal atherosclerotic changes of the aorta noted. There is IVC filter present which appears in good position. The bladder appears normal. Uterus is not enlarged. Stomach and small bowel are not distended. The colon shows normal stool and gas pattern. The appendix appears to be absent. There is no intra-abdominal adenopathy. No free air or free fluid. No bony lesions demonstrated. IMPRESSION: 1. Hepatomegaly with hepatic steatosis not significantly changed. 2. Bile ducts are not dilated. 3. Kidneys, ureter and bladder are normal. 4. Bowel gas pattern is normal. 5. There is mild diastases along the midline with what appears to be a previously repaired ventral hernia with mesh. No evidence of complication. Dictated by: Dictated on workstation # [id number] Reviewed: Reviewed by Me (radiology report reviewed by me) Departure Communication (Admissions) Progress Notes All laboratory and diagnostic findings discussed with the patient. Plan for discharge to home. She given prescriptions for Keflex, Pyridium, and Zofran. Impression Impression: Primary Impression: Urinary tract infection Qualified Codes: N30.00 - Acute cystitis without hematuria Additional Impression: Dehydration Disposition: HOME, SELF-CARE Condition: Improved Departure-Patient Inst. Decision time for Depature: 16:58 Referrals: [facility]/ (PCP) Primary Care Physician BEVERLY TAO (Family) Primary Care Physician Patient Instructions: Dehydration, Adult (DC), Urinary Tract Infection, Adult ( DC) Add. Discharge Instructions: All discharge instructions reviewed with patient and/or family. Voiced understanding. Medications as instructed. Tylenol Extra Strength over-the- counter as directed for pain. Ibuprofen 800 mg by mouth every 8 hours as needed for pain. Drink plenty of fluids. A left with your primary care provider if no improvement in symptoms. Return to the emergency department for worsened symptoms or any other concerns. Scripts Ondansetron (Ondansetron Odt) 8 Mg Tab.rapdis 8 MG PO Q6H Y for NAUSEA/VOMITING-1ST LINE, #10 TAB 0 Refills Prov: ANGIE MAS 06/11/17 Cephalexin (Cephalexin) 500 Mg Capsule 500 MG PO TID, #21 CAP 0 Refills Prov: ANGIE MAS 06/11/17 Phenazopyridine HCl (Pyridium) 100 Mg Tablet 100 MG PO Q8H Y for pain, #14 TAB 0 Refills Prov: ANGIE MAS 06/11/17 Work/School Note: Work Release Form Date Seen in the Emergency Department: Jun 11, 2017 Return to Work: Jun 13, 2017 ANGIE MAS Jun 11, 2017 14:04
[2017-06-11 14:09] LABS: ALANINE AMINOTRANSFERASE 25 U/L (0-55); ALBUMIN 4.3 GM/DL (3.2-4.5); ALKALINE PHOSPHATASE 84 U/L (40-136); BILIRUBIN,TOTAL 0.8 MG/DL (0.1-1.0); BUN/CREATININE RATIO 10; CALCIUM 9.6 MG/DL (8.5-10.1); CARBON DIOXIDE 19 MMOL/L (21-32); CHLORIDE 102 MMOL/L (98-107); CREATININE SERUM 0.59 MG/DL (0.60-1.30); GFR ESTIMATED > 60; GLUCOSE 223 MG/DL (70-105); LIPASE 37 U/L (8-78); POTASSIUM 3.8 MMOL/L (3.6-5.0); SODIUM 137 MMOL/L (135-145); TOTAL PROTEIN 7.7 GM/DL (6.4-8.2)
[2017-06-11 14:09] LABS: BACTERIA,URINE LARGE /HPF; WBC,URINE >100 /HPF
[2017-06-11] MEDS ORDERED: NS IV 1000 ML 1,000 ML IV ONE ×2 (14:41)
[2017-06-11] MEDS ORDERED: KETOROLAC 30 MG/ML VIAL IVP STA (14:41)
[2017-06-11] MEDS ORDERED: NS 250 ML (IVPB) BAG IV ONE (14:45)
[2017-06-11] MEDS ORDERED: CATHETER FLUSH 10 ML SYR IV PRN (14:45)
[2017-06-11] MEDS ORDERED: ONDANSETRON 4 MG/2 ML (SDV) Z0FRAN IVP ONE (14:45)
[2017-06-11] MEDS ORDERED: IOHEXOL 350 MG/ML 100 ML (OMNIPAQUE 350) VIAL IV ONE (14:45)
--- NOTE | 2017-06-11 16:09 | Diagnostic Imaging Report ---
PROCEDURE: CT abdomen and pelvis with contrast. TECHNIQUE: Multiple contiguous axial images were obtained through the abdomen and pelvis after administration of intravenous contrast. INDICATION: Mid abdominal pain yesterday with vomiting today. Patient is diabetic. COMPARISON: Comparison with 04/16/2011. FINDINGS: There is minimal atelectasis right lung base. Lung bases are otherwise clear. There is hepatomegaly with hepatic steatosis. The bile duct and gallbladder appear normal. The pancreas and spleen are normal. The adrenal glands are normal. The kidneys appear normal. There is normal enhancement of the abdominal organs and vessels following IV contrast. No evidence of aortic aneurysm with minimal atherosclerotic changes of the aorta noted. There is IVC filter present which appears in good position. The bladder appears normal. Uterus is not enlarged. Stomach and small bowel are not distended. The colon shows normal stool and gas pattern. The appendix appears to be absent. There is no intra-abdominal adenopathy. No free air or free fluid. No bony lesions demonstrated. IMPRESSION: 1. Hepatomegaly with hepatic steatosis not significantly changed. 2. Bile ducts are not dilated. 3. Kidneys, ureter and bladder are normal. 4. Bowel gas pattern is normal. 5. There is mild diastases along the midline with what appears to be a previously repaired ventral hernia with mesh. No evidence of complication. Dictated by: Dictated on workstation # [id number]
[2017-06-11] MEDS ORDERED: cefTRIAXone INJECTION 1,000 MG in NS (IVPB) 100 ML IV ONE (16:30)
[2017-06-11] MEDS ORDERED: CEPH500C PO (17:03)
[2017-06-11] MEDS ORDERED: ONDA8TAB13 PO (17:03)
[2017-06-11] MEDS ORDERED: PHEN-639 PO (17:03)
[2017-06-11 17:25] VITALS: BP 135/82
== END 2017-06-11 17:28 | disposition home or self-care (01) ==
LOC: EDUNIT# 13:18 → ER 13:20
DX: N39.0 Urinary tract infection, site not specified (principal); E86.0 Dehydration; R11.2 Nausea with vomiting, unspecified; E78.00 Pure hypercholesterolemia, unspecified; E11.9 Type 2 diabetes mellitus without complications; G43.909 Migraine, unspecified, not intractable, without status migrainosus; F41.9 Anxiety disorder, unspecified; F31.9 Bipolar disorder, unspecified; F60.9 Personality disorder, unspecified; Z79.82 Long term (current) use of aspirin; Z87.59 Personal history of other complications of pregnancy, childbirth and the puerperium; Z88.1 Allergy status to other antibiotic agents; Z88.8 Allergy status to other drugs, medicaments and biological substances
CPT/HCPCS: 36415; 74177; 80053; 81000; 83605; 83690; 85025; 86141; 87040; 87077; 87088; 87186; 96361; 96374; 96375

== ENCOUNTER 2017-06-14 21:54 | Emergency (ER) | payer SELFPAY ==
[~2017-06-14] VITALS: Ht 157.5 cm; Wt 82.6 kg
[~2017-06-14 21:54] MED LIST changes: +CEPH500C PO; +ONDA8TAB13 PO; +PHEN-639 PO
--- OUTSIDE RECORDS SUMMARY | 2017-06-14 22:07 | XMS REPORT ---
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 Name Role Phone BEVERLY TAO Unavailable PROBLEMS Type Condition ICD9-CM Code [id number] Code Onset Dates Condition Status SNOMED Code Problem Diabetes E11.9 Active 322412735 Problem Lumbar radiculopathy M54.16 Active 810938568 Problem Irritable bowel syndrome with diarrhea K58.0 Active 099576088 Problem New daily persistent headache G44.52 Active 128158721 Problem Acute bilateral low back pain with right-sided sciatica M54.41 Active 330897174 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 Z79.891 Active 036717620 Problem Bipolar 1 disorder F31.9 Active 834846150 Problem Hyperlipidemia, unspecified E78.5 Active 89224149 Problem Type 2 diabetes mellitus with complication E11.8 Active 172390415 Problem Post laminectomy syndrome M96.1 Active 94596371 Problem Eye exam normal Z01.00 Active 563193957 Problem Bipolar disorder, in partial remission, most recent episode manic F31.73 Active 60481878 Problem Extreme poverty Z59.5 Active 33988144 Problem Obesity, unspecified 278.00 Active 534254461 Problem 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 Active 79596952 Problem Hyperlipidemia 272.4 Active 19844094 Problem Non compliance with medical treatment Z91.19 Active 0036052 ALLERGIES No Information ENCOUNTERS Encounter Location Date Diagnosis [facility], [place] [address] [address] Aug, [facility] [place] [address] [address] Jun, [facility] [place] [id number] [address] May, [facility] [place] [id number] [place] [address] 07443- 7734 May, Bipolar 1 disorder F31.9 ; 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 and Extreme poverty Z59.5 [place] [id number] [place] [address] 67870- 1882 28 Apr, 2017 Diabetes E11.9 and Breast cancer screening Z12.31 [place] [address] 74191- 4153 20 Apr, 2017 Bipolar 1 disorder F31.9 and 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 [place] [id number] [place] [address] 63753- 7427 Mar, Bipolar 1 disorder F31.9 ; 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 and Extreme poverty Z59.5 [place] [id number] [place] [address] 74455- 8357 Mar, New daily persistent headache G44.52 ; Leg pain 729.5 and History of carpal tunnel release Z98.890 [place] [id number] [place] [address] 39165- 0079 Mar, Hyperlipidemia, unspecified E78.5 [place] [id number] [place] [address] 09996- 3134 Mar, Bipolar 1 disorder F31.9 ; 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 and Extreme poverty Z59.5 [place] [id number] [place] [address] 49882- 1385 Feb, Bipolar 1 disorder F31.9 ; 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 and Extreme poverty Z59.5 [place] [id number] [place] [address] 51752- 0789 Feb, Diabetes E11.9 [place] [id number] [place] [address] 25534- 4483 Feb, Viral syndrome B34.9 [place] [address] 37609- 8965 Jan, Other viral agents as the cause of diseases classified elsewhere B97.89 and Acute upper respiratory infection, unspecified J06.9 [place] [id number] [place] [address] 48841- 9129 Jan, Bipolar 1 disorder F31.9 and 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 [place] [id number] [place] [address] 90299- 0555 Jan, Bipolar 1 disorder F31.9 ; 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 and Extreme poverty Z59.5 [place] [id number] [place] [address] 11424- 4329 Dec, Diabetes E11.9 [place] [id number] [place] [address] 17251- 9074 Dec, Diabetes E11.9 and Encounter for immunization Z23 [place] [address] 52672- 1036 Dec, Bipolar 1 disorder F31.9 ; 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 and Extreme poverty Z59.5 [place] [id number] [place] [address] 51880- 7853 Dec, Back pain M54.9 [place] [id number] [place] [address] 08921- 3537 Nov, [place] [id number] [place] [address] 27228- 4013 Nov, Bipolar 1 disorder F31.9 ; 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 and Extreme poverty Z59.5 [place] [id number] [place] [address] 96407- 6574 Nov, Bipolar 1 disorder F31.9 ; 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 and Extreme poverty Z59.5 [place] [id number] [place] [address] 93701- 9100 Oct, 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 and Bipolar 1 disorder F31.9 [place] [id number] [place] [address] 48861- 1590 Oct, Bipolar 1 disorder F31.9 ; 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 and Extreme poverty Z59.5 [place] [id number] [place] [address] 25260- 8628 Oct, Back pain M54.9 [place] [id number] [place] [address] 75141- 2502 Oct, 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 and Type 2 diabetes mellitus with complication E11.8 [place] [id number] [place] [address] 40688- 1350 Sep, Bipolar 1 disorder F31.9 ; 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 and Extreme poverty Z59.5 [place] [id number] [place] [address] 77785- 3909 Sep, 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 and Bipolar 1 disorder F31.9 [place] [id number] [place] [address] 59108- 5782 Sep, Bipolar 1 disorder F31.9 ; 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 and Extreme poverty Z59.5 [place] [id number] [place] [address] 97300- 9280 Aug, Diabetes E11.9 ; Hyperlipidemia, unspecified E78.5 and Lumbar radiculopathy M54.16 [place] [address] [place] [address] 29092- 0539 Aug, Bipolar 1 disorder F31.9 ; 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 and Extreme poverty Z59.5 [place] [address] [place] [address] 57422- 4522 Aug, [place] [id number] [place] [address] 59125- 1454 Aug, [place] [id number] [place] [address] 61299- 8119 Aug, [place] [address] [address] 12[address] July, [place] [id number] [place] [address] 27367- 2214 July, Acute bilateral low back pain with right-sided sciatica M54.41 [place] [id number] [place] [address] 74526- 5692 July, Bipolar 1 disorder F31.9 ; 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 and Extreme poverty Z59.5 [place] [id number] [place] [address] 17345- 8412 July, Back pain M54.9 and Diabetes E11.9 [place] [id number] [place] [address] 91045- 1893 Jun, Bipolar 1 disorder F31.9 ; 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 and Extreme poverty Z59.5 [place] [id number] [place] [address] 26443- 1677 Jun, Bipolar 1 disorder F31.9 ; 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 and Extreme poverty Z59.5 [place] [id number] [place] [address] 61632- 6301 May, Visit for pelvic exam Z01.419 ; Acute vaginitis N76.0 and Diabetes E11.9 [place] [id number] [place] [address] 98317- 7137 May, Bipolar 1 disorder F31.9 ; 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 and Extreme poverty Z59.5 [place] [id number] [place] [address] 48607- 5186 May, [place] [id number] [place] [address] 06781- 2604 May, [place] [id number] [place] [address] 08638- 4183 May, Bipolar 1 disorder F31.9 ; 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 and Extreme poverty Z59.5 [place] [id number] [place] [address] 08454- 9824 May, Hyperlipidemia, unspecified E78.5 [place] [id number] [place] [address] 21895- 6012 13 Apr, 2016 Breast cancer screening Z12.39 [place] [address] 50311- 4669 Mar, [place] [address] 46345- 9983 Mar, Bipolar disorder, current episode mixed, unspecified F31.[address] 26997- 1317 Mar, Bipolar 1 disorder F31.9 ; 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 and Extreme poverty Z59.5 [place] [address] 00465- 7474 Feb, Acute nasopharyngitis J00 [place] [address] 37083- 6134 Feb, Dental examination Z01.20 [place] [id number] [place] [address] 69235- 4350 Feb, Dental cavities K02.9 and Chronic periodontitis, unspecified K05.30 [place] [id number] [place] [address] 97372- 7582 Feb, Low back pain M54.5 and Extreme poverty Z59.5 [place] [id number] [place] [address] 97297- 1578 Feb, [address] 13154- 2959 05 Feb, 2016 Routine gynecological examination V72.31 ; Breast cancer screening Z12.39 and Herpes simplex type 1 infection B00.9 [place] [id number] [place] [address] 78031- 9146 Feb, Diabetes E11.9 [place] [id number] [place] [address] 64655- 1878 Feb, Encounter for dental examination and cleaning without abnormal findings Z01.20 [place] [id number] [place] [address] 32650- 3227 Jan, Hyperlipidemia, unspecified E78.5 [place] [id number] [place] [address] 67203- 6212 Jan, Bipolar 1 disorder F31.9 ; 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 and Extreme poverty Z59.5 [place] [id number] [place] [address] 25167- 4406 Jan, Diabetes E11.9 [place] [id number] [place] [address] 60740- 2284 Jan, Diabetes E11.9 [place] [id number] [place] [address] 80469- 3044 14 Dec, 2015 Bipolar 1 disorder F31.9 ; 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 and Extreme poverty Z59.5 [place] [id number] [place] [address] 45902- 4567 13 Dec, 2015 Bipolar disorder, current episode mixed, unspecified F31.60 and 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 [place] [id number] [place] [address] 96879- 0403 16 Nov, 2015 Bipolar 1 disorder F31.9 ; 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 ; Extreme poverty Z59.5 and Non compliance with medical treatment Z91.19 [place] [id number] [place] [address] 94828- 6308 Oct, [place] [id number] [place] [address] 78437- 5881 Oct, Dental caries K02.9 [place] [id number] [place] [address] 31891- 6399 Oct, Low back pain M54.5 and Other chronic pain G89.29 [place] [id number] [place] [address] 76874- 1769 Oct, Bipolar 1 disorder F31.9 ; 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 ; Extreme poverty Z59.5 and Non compliance with medical treatment Z91.19 [place] [id number] [place] [address] 03343- 9604 Oct, [place] [id number] [place] [address] 76212- 3583 Oct, [place] [id number] [place] [address] 17913- 4202 Oct, Dental examination Z01.20 [place] [id number] [place] [address] 68826- 9134 Oct, Bipolar 1 disorder F31.9 ; 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 ; Extreme poverty Z59.5 and Non compliance with medical treatment Z91.19 [place] [id number] [place] [address] 87579- 6457 Oct, [place] [id number] [place] [address] 64266- 8309 Sep, Type 2 diabetes mellitus with complication E11.8 [place] [id number] [place] [address] 89394- 5201 Sep, Bipolar disorder, current episode mixed, unspecified F31.60 [place] [id number] [place] [address] 27526- 1707 Sep, Bipolar disorder, current episode mixed, unspecified F31.60 [place] [id number] [place] [address] 48640- 0132 Sep, Bipolar disorder, in partial remission, most recent episode manic F31.73 ; 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 ; Extreme poverty Z59.5 and Non compliance with medical treatment Z91.19 [place] [id number] [place] [address] 80635- 0453 Aug, Bipolar disorder, in partial remission, most recent episode manic F31.73 ; 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 ; Extreme poverty Z59.5 and Non compliance with medical treatment Z91.19 [place] [address] [place] [address] 82410- 8159 Aug, Bipolar disorder, in partial remission, most recent episode manic F31.73 ; 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 ; Extreme poverty Z59.5 and Non compliance with medical treatment Z91.19 [place] [id number] [place] [address] 32875- 8187 Aug, [place] [id number] [place] [address] 38256- 7198 July, Bipolar disorder, in partial remission, most recent episode manic F31.73 ; 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 ; Extreme poverty Z59.5 and Non compliance with medical treatment Z91.19 [place] [id number] [place] [address] 55624- 5837 July, Bipolar disorder, current episode mixed, unspecified F31.60 [place] [id number] [place] [address] 88132- 0339 July, Bipolar disorder, in partial remission, most recent episode manic F31.73 ; 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 ; Extreme poverty Z59.5 and Non compliance with medical treatment Z91.19 [place] [id number] [place] [address] 33518- 4518 July, 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 and Chronic pain G89.29 [place] [id number] [place] [address] 77695- 4404 Jun, 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 and Bipolar 1 disorder F31.9 [place] [id number] [place] [address] 60291- 4009 Jun, [place] [id number] [place] [address] 36502- 5151 Jun, [place] [address] [address]- 7066 Jun, [place] [id number] [place] [address]- 9339 Jun, Bipolar disorder, in partial remission, most recent episode manic F31.73 ; 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 and Non compliance with medical treatment Z91.19 [place] [id number] [place] [address] 42469- 8435 May, Bipolar disorder, in partial remission, most recent episode manic F31.73 ; 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 and Non compliance with medical treatment Z91.19 [place] [id number] [place] [address] 46701- 5036 May, Bipolar disorder, in partial remission, most recent episode manic F31.73 [place] [id number] [place] [address] 81801- 0696 May, Diabetes E11.9 and Chronic pain G89.29 [place] [address] [place] [address] 49203- 2877 May, [place] [address] [place] [address] 14481- 4754 May, Bipolar disorder, in partial remission, most recent episode manic F31.73 ; Non compliance with medical treatment Z91.19 and 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 [place] [address] [place] [address] 45788- 1704 May, Type 2 diabetes mellitus with complication E11.8 and Back pain M54.9 [place] [id number] [place] [address] 24374- 2957 May, Bipolar disorder, in partial remission, most recent episode manic F31.73 and 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 [place] [id number] [place] [address] 02092- 5764 Apr, [place] [id number] [place] [address] 72906- 7221 Apr, [place] [id number] [place] [address] 97915- 4587 Apr, [place] [id number] [place] [address] 05971- 6861 09 Apr, 2015 Diabetes E11.9 ; Irritable bowel syndrome with diarrhea K58.0 and Lumbar radiculopathy M54.16 [place] [id number] [place] [address] 19356- 6790 02 Apr, 2015 Breast screening Z12.39 [place] [id number] [place] [address] 84760- 2991 02 Apr, 2015 Bipolar disorder, in partial remission, most recent episode manic F31.73 ; Non compliance with medical treatment Z91.19 and 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 [place] [id number] [place] [address] 69766- 7971 Mar, Edema, unspecified type R60.9 and Type 2 diabetes mellitus with complication E11.[address] [place] [address] 33922- 4387 Mar, Bipolar disorder, in partial remission, most recent episode manic F31.73 ; Non compliance with medical treatment Z91.19 ; 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 and Extreme poverty Z59.5 [place] [address] [place] [address] 33287- 0403 Mar, Bipolar disorder, current episode mixed, unspecified F31.60 ; 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 ; Extreme poverty Z59.5 and Generalized anxiety disorder F41.1 [place] [address] [place] [address] 79895- 8508 Mar, Bipolar disorder, in partial remission, most recent episode manic F31.73 ; 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 and Extreme poverty Z59.5 [place] [id number] [place] [address] 62484- 4572 Feb, Bipolar disorder, in partial remission, most recent episode manic F31.73 ; 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 and Extreme poverty Z59.5 [place] [id number] [place] [address] 84738- 4817 Feb, Bipolar disorder, in partial remission, most recent episode manic F31.73 ; 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 and Extreme poverty Z59.5 [place] [id number] [place] [address] 71887- 7367 Feb, [place] [address] 33175- 7697 Jan, Type 2 diabetes mellitus with complication E11.8 and Petechiae R23.3 [place] [id number] [place] [address] 84635- 0084 Jan, Type 2 diabetes mellitus with complication E11.8 ; Edema, unspecified R60.9 ; Petechiae R23.3 and Diabetes E11.9 [place] [id number] [place] [address] 61448- 9779 Jan, Bipolar disorder, in partial remission, most recent episode manic F31.73 ; 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 and Extreme poverty Z59.5 [place] [id number] [place] [address] 79690- 1451 Jan, Bipolar disorder, in partial remission, most recent episode manic F31.73 ; 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 and Extreme poverty Z59.5 [place] [id number] [place] [address] 69005- 3455 Dec, Bipolar disorder, in partial remission, most recent episode manic F31.73 [place] [id number] [place] [address] 52404- 8741 Dec, Edema, due to unspecified malnutrition type, unspecified edema R60.9 and Essential hypertension I10 [place] [address] [place] [address]- 5849 Dec, Bipolar disorder, in partial remission, most recent episode manic F31.73 [facility] [place] [address] 62211- 9703 Nov, Bipolar I disorder, most recent episode (or current) mixed, unspecified 296.60 [facility] [place] [id number] [place] [address] 74522- 2177 Nov, Stress incontinence, female 625.6 ; Back pain 724.5 and Leg pain 729.5 [facility] [place] [id number] [place] [address] 22917- 4190 Nov, Generalized anxiety disorder 300.02 and Bipolar II disorder 296.89 [facility] [place] [id number] [place] [address] 86863- 5216 Nov, Bipolar I disorder, most recent episode (or current) mixed, unspecified 296.60 [facility] [place] [id number] [place] [address] 30980- 1449 Oct, [facility] [place] [id number] [place] [address] 35558- 8568 Oct, [facility] [place] [id number] [place] [address] 69425- 3014 Oct, [facility] [place] [id number] [place] [address] 13104- 1193 Oct, Bipolar I disorder, most recent episode (or current) mixed, unspecified 296.60 [facility] [place] [id number] [place] [address] 54165- 6593 Sep, Diabetes 250.00 [facility] [place] [id number] [place] [address] 35505- 8241 Sep, Bipolar I disorder, most recent episode (or current) mixed, unspecified 296.60 [facility] [place] [id number] [place] [address] 37094- 1334 Sep, [facility] [place] [address] [address]- 8695 Sep, [facility] [place] [id number] [place] [address] 49344- 5899 Sep, Bipolar I disorder, most recent episode (or current) mixed, unspecified 296.60 [facility] [place] [id number] [place] [address] 48933- 6416 Sep, Bipolar I disorder, most recent episode (or current) mixed, unspecified 296.60 [facility] [place] [id number] [place] [address] 25543- 3740 Sep, [facility] [place] [id number] [place] [address] 18361- 9746 Sep, Anxiety 300.00 ; Diabetes 250.00 and Hyperlipidemia 272.4 [facility] [place] [id number] [place] [address] 19787- 3111 Aug, [facility] [place] [id number] [place] [address] 62967- 2146 Aug, [facility] [place] [id number] [place] [address] 91723- 0392 Aug, [facility] [place] [id number] [place] [address] [phone] Aug, Bipolar I disorder, most recent episode (or current) mixed, unspecified 296.60 [facility], [place] [id number] [place] [address] [phone] Aug, Generalized anxiety disorder 300.02 and Bipolar II disorder 296.89 [facility], [place] [id number] [place] [address] [phone] July, Bipolar I disorder, most recent episode (or current) mixed, unspecified 296.60 [facility], [place] [id number] [place] [address] [phone] July, Cough 786.2 [facility], [place] [id number] [place] [address] [phone] July, Bipolar I disorder, most recent episode (or current) mixed, unspecified 296.60 [facility], [facility] [id number] [address] 30 Jun, 2014 Diabetes 250.00 [facility] [address]005[address] [address] 14 Jun, 2014 [facility] [id number] [place] [address] Jun, [facility] [address] [id number] [address] May, [facility] [address] [address] May, [facility] [address] [address] May, [facility] [address] [address] 47[address] May, [facility] [address] [address] May, [facility] [address]005[address] [address] 1467 May, [facility] [address] [address] 16[address] Apr, [facility] [address] [address] 8613 Apr, [facility] [address]00565[address] [address] 1449 Apr, [facility] [address] [address] [address] Apr, [facility] [id number] [address] Apr, [facility] [id number] [address] Apr, [facility] [address] [id number] [place] [address] 0400 Apr, [facility] [place] [facility] [address] [id number] [place] [address]- 5736 Apr, [facility] [address] [id number] [place] [address]- 5747 Mar, [facility] [place] [facility] [address] [id number] [place] [address]- 4317 Mar, [facility] [address] [id number] [place] [address]- 6795 Mar, [facility] [address] [id number] [place] [address]- 9579 Mar, [facility] [address] [id number] [place] [address]- 7802 Mar, [facility] [address] [id number] [place] [address]- 4263 Mar, [facility] [address] [id number] [place] [address]- 0243 Mar, [facility] [address] [id number] [place] [address]- 8614 Mar, [facility] [address] [id number] [place] [address]- 5372 Feb, [facility] [place] [facility] [address] [id number] [place] [address]- 2786 Feb, [facility] [place] [facility] [address] [id number] [place] [address]- 5297 Feb, [facility] [place] [facility] [address] [id number] [place] [address]- 0796 Feb, [facility] [place] [facility] [address] [id number] [place] [address] Feb, [facility] [place] [facility] [address] [id number] [place] [address]- 7497 Feb, [facility] [place] [facility] [address] [id number] [place] [address]- 6655 Feb, [facility] [place] [facility] [address] [id number] [place] [address]- 4130 Feb, [facility] [place] [facility] [address] [id number] [place] [address]- 4322 Feb, [facility] [place] [facility] [address] [id number] [place] [address]- 3536 Feb, [facility] [place] [facility] [address] [id number] [place] [address]- 1047 Jan, [facility] [place] [facility] [address] [id number] [place] [address]- 8396 Jan, [facility] [place] [facility] [address] [id number] [place] [address]- 8151 Jan, [facility] [place] [facility] [address] [id number] [place] [address]- 2445 Jan, [facility] [place] [facility] [address] [id number] [address]- 66[address] Jan, [facility] [place] [facility] [address] [id number] [address]- 7193 Jan, [facility] [place] [facility] [address] [id number] [address]- 7483 Jan, [facility] [place] [facility] [address] [id number] [place] [address]- 9743 Jan, [facility] [place] [facility] [address] [id number] [address]- 7448 Jan, [facility] [place] [facility] [address] [id number] [address]- 1970 Jan, [facility] [place] [facility] [address] [id number] [address]- 5438 Jan, [facility] [place] [facility] [address] [id number] [place] [address]- 6720 Jan, [facility] [place] [facility] [address] [id number] [place] [address]- 2980 Jan, [facility] [place] [facility] [address] [id number] [place] [address]- 1384 Jan, [facility] [place] [facility] [address] [id number] [place] [address]- 6447 Jan, [facility] [place] [facility] [address] [id number] [place] [address]- 0265 Dec, [facility] [place] [facility] [address] [id number] [place] [address]- 1417 Dec, [facility] [place] [facility] [address] [id number], [place] [address]- 5650 Dec, [facility] [place] [facility] [address] [id number] [place] [address]- 9958 Dec, [facility] [place] [facility] [address] [id number], [place] [address]- 5479 Dec, [facility] [place] [facility] [address] [id number], [place] [address]- 8774 Dec, [facility] [place] [facility] [address] [id number] [address]- 4230 Dec, [facility] [place] [facility] [address] [id number], [place] [address]- 0830 Dec, [facility] [place] [facility] [address] [id number] [address]- 6056 Nov, [facility] [place] [facility] [address] [id number], [place] [address]- 7163 25 Nov, 2013 [facility] [place] [facility] [address] [id number] [address]- 4068 10 Nov, 2013 [facility] [place] [facility] [address] [id number] [place] [address]- 9720 10 Sep, 2013 [facility] [place] [facility] [address] [id number] [place] [address]- 8376 08 Sep, 2013 [facility] [place] [facility] [address] [id number] [place] [address]- 2777 08 Sep, 2013 [facility] [place] [facility] [address] [id number] [place] [address]- 3034 08 Sep, 2013 [facility] [place] [facility] [address] [id number] [place] [address]- 4091 08 Sep, 2013 [facility] [place] [facility] [address] [id number] [place] [address]- 1565 08 Sep, 2013 [facility] [place] [facility] [address] [id number] [place] [address]- 6409 08 Sep, 2013 [facility] [place] [facility] [address] [id number] [place] [address]- 2760 04 Sep, 2013 [facility] [place] [facility] [address] [id number] [place] [address]- 4136 04 Nov, 2013 [facility] [place] [facility] [address] [id number] [place] [address]- 8803 03 Nov, 2013 [facility] [place] [facility] [address] [id number] [place] [address]- 6363 02 Nov, 2013 [facility] [place] [facility] [address] [id number] [place] [address]- 2544 Nov, 2013 [facility] [place] [facility] [address] [id number] [place] [address]- 5889 Oct, [facility] [place] [facility] [address] [id number] [place] [address]- 7185 Oct, [facility] [place] [facility] [address] [id number] [place] [address]- 7009 Oct, [facility] [place] [facility] [address] [id number] [place] [address]- 9548 Oct, [facility] [place] [facility] [address] [id number] [place] [address]- 2325 Oct, [facility] [place] [facility] [address] [id number] [place] [address]- 7311 Oct, [facility] [place] [facility] [address] [id number] [place] [address]- 3423 Oct, [facility] [place] [facility] [address] [id number] [place] [address]- 8064 Oct, [facility] [place] [facility] [address] [id number] [place] [address]- 4621 Oct, [facility] [place] [facility] [address] [id number] [place] [address]- 1241 Oct, [facility] [place] [facility] [address] [id number] [place] [address]- 1769 Oct, [facility] [place] [facility] [address] [id number] [place] [address]- 2071 Oct, [facility] [place] [facility] [address] [id number] [place] [address]- 1103 Oct, [facility] [place] [facility] [address] [id number] [place] [address]- 3966 Oct, [facility] [place] [facility] [address] [id number] [place] [address]- 2136 Sep, [facility] [place] [facility] [address] [id number] [place] [address]- 5283 Sep, [facility] [place] [facility] [address] [id number] [place] [address]- 9438 Sep, [facility] [place] [facility] [address] [id number] [place] [address]- 6031 Sep, [facility] [place] [facility] [address] [id number] [place] [address]- 7798 Sep, [facility] [place] [facility] [address] [id number] [place] [address]- 3441 Sep, [facility] [place] [facility] [address] [id number] [place] [address]22 Sep, [facility] [place] [facility] [address] [id number] [place] 9770 Sep, [facility] [place] [facility] [address] [id number] [place] [address]- 9443 Aug, [facility] [place] [facility] [address] [id number] [place] [address]- 8506 Aug, [facility] [place] [facility] [address] [id number] [place] [address]- 8293 Aug, [facility] [place] [facility] [address] [id number] [place] [address]- 9928 Aug, [facility] [place] [facility] [address] [id number] [place] [address]- 6692 Aug, [facility] [place] [facility] [address] [id number] [place] [address]- 6171 Aug, [facility] [place] [facility] [address] [id number] [place] [address]- 8821 Aug, [facility] [place] [facility] [address] [id number] [place] [address]- 1598 Aug, [facility] [place] [facility] [address] [id number] [place] [address]- 2688 July, [facility] [place] [facility] [address] [id number] [place] [address]- 5325 July, [facility] [place] [facility] [address] [id number] [place] [address]- 1781 July, [facility] [place] [facility] [address] [id number] [place] [address]- 8938 July, [facility] [place] [facility] [address] [id number] [place] [address]- 8384 July, [facility] [place] [facility] [address] [id number] [place] [address]- 3066 July, [facility] [place] [facility] [address] [id number] [place] [address]- 2982 July, [facility] [place] [facility] [address] [id number] [place] [address]- 4020 July, [facility] [place] [facility] [address] [id number] [place] [address]- 9138 Jun, [facility] [place] [facility] [address] [id number] [place] [address]- 2194 Jun, [facility] [place] [facility] [address] [id number] [place] [address]- 6403 Jun, [facility] [place] [facility] [address] [id number] [place] [address]- 7167 Jun, [facility] [place] [facility] [address] [id number] [place] [address]- 7960 Jun, [facility] [place] [facility] [address] [id number] [place] [address]- 3038 Jun, [facility] [place] [facility] [address] [id number] [place] [address]- 7665 Jun, [facility] [place] [facility] [address] [id number] [place] [address]- 8008 Jun, [facility] [place] [facility] [address] [id number] [place] [address]- 7608 Jun, [facility] [place] [facility] [address] [id number] [place] [address]- 0113 Jun, [facility] [place] [facility] [address] [id number] [place] [address]- 5482 Jun, [facility] [place] [facility] [address] [id number] [place] [address]- 0705 Jun, [facility] [place] [facility] [address] [id number] [place] [address]- 9389 May, [facility] [place] [facility] [address] [id number] [place] [address]- 5153 May, [facility] [place] [facility] [address] [id number] [place] [address]- 2396 May, [facility] [place] [facility] [address] [id number] [place] [address]- 8834 May, [facility] [place] [facility] [address] [id number] [place] [address]- 4326 May, [facility] [place] [facility] [address] [id number] [place] [address]- 1008 May, [facility] [place] [facility] [address] [id number] [place] [address]- 0822 May, [facility] [place] [facility] [address] [id number] [place] [address]- 9372 May, [facility] [place] [facility] [address] [id number] [place] [address]- 4339 May, [facility] [place] [facility] [address] [id number] [place] [address]- 0720 May, [facility] [place] [facility] [address] [id number] [place] [address]- 1517 May, [facility] [place] [facility] [address] [id number] [place] [address]- 5466 May, [facility] [place] [facility] [address] [id number] [place] [address]- 1130 May, [facility] [place] [facility] [address] [id number] [place] [address]- 5240 May, [facility] [place] [facility] [address] [id number] [place] [address]- 4248 Apr, [facility] [place] [facility] [address] [id number] [place] [address]- 3519 Apr, [facility] [place] [facility] [address] [id number] [place] [address]- 0050 07 Apr, 2013 [facility] [place] [facility] [address] [id number] [place] [address]- 5376 Apr, [facility] [place] [facility] [address] [id number] [place] [address]- 6296 Apr, [facility] [place] [facility] [address] [id number] [place] [address]- 2066 Apr, [facility] [place] [facility] [address] [id number] [place] [address]- 7826 Mar, [facility] [place] [facility] [address] [id number] [place] [address]- 1036 Mar, [facility] [place] [facility] [address] [id number] [place] [address]- 3435 Mar, [facility] [place] [facility] [address] [id number] [place] [address]- 6482 Mar, [facility] [place] [facility] [address] [id number] [place] [address]- 5999 Mar, [facility] [place] [facility] [address] [id number] [place] [address]- 0719 Mar, [facility] [place] [facility] [address] [id number] [place] [address]- 1357 Mar, [facility] [place] [facility] [address] [id number] [place] [address]- 1180 Mar, [facility] [place] [facility] [address] [id number] [place] [address]- 4487 Mar, [facility] [place] [facility] [address] [id number] [place] [address]- 8537 Mar, [facility] [place] [facility] [address] [id number] [place] [address]- 9215 Mar, [facility] [place] [facility] [address] [id number] [place] [address]- 5267 Mar, [facility] [address] [id number] [place] [address]- 0047 Mar, [facility] [place] [facility] [address] [id number] [place] [address]- 5508 Mar, [facility] [place] [facility] [address] [id number] [place] [address]- 1734 Feb, [facility] [place] [facility] [address] [id number] [place] [address]- 0061 Feb, [facility] [place] [facility] [address] [id number] [place]30 Feb, [facility] [place] [facility] [address] [id number] [place] [address]- 2591 Feb, [facility] [place] [facility] [address] [id number] [place] [address]- 3553 Feb, [facility] [place] [facility] [address] [id number] [place] [address]- 2699 Feb, [facility] [place] [facility] [address] [id number] [place] [address]- 8318 Feb, [facility] [place] [facility] [address] [id number] [place] [address]- 2094 Feb, [facility] [place] [facility] [address] [id number] [place] [address]- 8378 Feb, [facility] [place] [facility] [address] [id number], [place] [address]- 8075 Feb, [facility] [place] [facility] [address] [id number] [place] [address]- 2983 Feb, [facility] [place] [facility] [address] [id number] [place] [address]- 7155 Feb, [facility] [place] [facility] [address] [id number] [place] [address]- 0655 Feb, [facility] [place] [facility] [address] [id number] [place] [address]- 5223 05 Feb, 2012 [facility] [address] [id number] [place] [address]- 8382 05 Feb, 2012 [facility] [place] [facility] [address] [id number] [place] [address]- 7021 05 Feb, 2012 [facility] [place] [facility] [address] [id number] [place] [address]- 4655 24 Dec, 2012 [facility] [place] [facility] [address] [id number] [place] [address]- 2600 24 Dec, 2012 [facility] [place] [facility] [address] [id number] [place] [address]- 2470 16 Dec, 2012 [facility] [place] [facility] [address] [id number] [place] [address]- 1871 16 Dec, 2012 [facility] [place] [facility] [address] [id number] [place] [address]- 7283 16 Dec, 2012 [facility] [place] [facility] [address] [id number] [place] [address]- 0023 16 Dec, 2012 [facility] [place] [facility] [address] [id number] [place] [address]- 6548 14 Dec, 2012 [facility] [place] [facility] [address] [id number] [place] [address]- 0523 14 Dec, 2012 [facility] [place] [facility] [address] [id number] [place] [address]- 2693 10 Dec, 2012 [facility] [place] [facility] [address] [id number] [address]- 4672 10 Dec, 2012 [facility] [place] [facility] [address] [id number] [place] [address]- 1166 10 Dec, 2012 [facility] [place] [facility] [address] [id number] [place] [address] 10 Dec, 2012 [facility] [place] [facility] [address] [id number] [place] [address] Dec, [facility] [place] [facility] [address] [id number] [place] [address] 25 Nov, 2012 [facility] [place] [facility] [address] [id number] [place] [address] 7929 20 Nov, 2012 [facility] [place] [facility] [address] [id number] [place] [address] 18 Nov, 2012 [facility] [place] [facility] [address] [id number] [place] [address] 395[address] 16 Nov, 2012 [facility] [place] [facility] [address] [id number] [place] [address]461 12 Nov, 2012 [facility] [place] [facility] [address] [id number] [place] [address] 1546 11 Nov, 2012 [facility] [place] [facility] [address] [id number] [place] [address]- [address] 05 Nov, 2012 [facility] [place] [facility] [address] [id number] [place] [address] 15 Oct, 2012 [facility] [place] [facility] [address] [id number] [place] [address] Oct, [facility] [place] [facility] [address] [id number] [place] [address] Sep, [facility] [place] [facility] [address] [id number] [place] [address] 240[address] Sep, [facility] [place] [facility] [address] [id number] [place] [address] 3598 Sep, [facility] [place] [facility] [address] [id number] [place] [address] Sep, [facility] [place] [facility] [address] [id number] [place] [address]- 7091 Sep, [facility] [place] [facility] [address] [id number] [place] [address] 2094 Sep, [facility] [place] [facility] [address] [id number], [place] [address] 08 Sep, 2012 [facility] [place] [facility] [address] [id number] [place] [address]697 Aug, [facility] [place] [facility] [address] [id number] [place] [address] 3210 18 Aug, 2012 [facility] [place] [facility] [address] [id number] [place] [address]- 9319 16 Aug, 2012 [facility] [place] [facility] [address] [id number] [place] [address] 3343 13 Aug, 2012 [facility] [place] [facility] [address] [id number] [place] [address] 1017 Aug, [facility] [place] [facility] [address] [id number] [place] [address] 38[address] Aug, [facility] [address] [id number] [place] [address]90 Aug, [facility] [place] [facility] [address] [id number] [place] [address] 2418 Aug, [facility] [place] [facility] [address] [id number] [place] [address] 6708 July, [facility] [place] [facility] [address] [id number] [place] [address] 6773 July, [facility] [place] [facility] [address] [id number] [place] [address] 6470 July, [facility] [facility] [address] [id number] [place] [id number] July, [facility] [place] [facility] [address] [id number] [place] [address] 135[address] July, [facility] [place] [facility] [address] [id number] [place] [address] 8070 Jun, [facility] [place] [facility] [address] [id number] [place] [address] 7796 May, [facility] [place] [facility] [address] [id number] [place] [address] 5852 14 May, 2012 [facility] [address] [id number] [place] [address] 6[address] 04 May, 2012 [facility] [address] [id number] [place] [address] 22 Apr, 2012 [facility] [address] [id number] [place] [address] 8946 Apr, [facility] [address] [id number] [place] [address] 2546 Apr, [facility] [address] [id number] [place] [address] 9290 Mar, [facility] [address] [id number] [place] [address] 3034 Mar, [facility] [address] [id number] [place] [address] Mar, [facility] [address] [id number] [place] [address] 6635 Mar, [facility] [address] [id number] [place] [address] 9687 Mar, [facility] [address] [id number] [place] [address] 59[address] Mar, [facility] [address] [id number] [place] [address]- 7946 Mar, [facility] [address] [id number] [place] [address]- 6[address] Feb, [facility] [address] [id number] [place] [address] 6536 Feb, [facility] [facility] [address] [id number] [place] [address] 2546 Feb, [facility] [address] [id number] [place] [address] 0695 Feb, [facility] [place] [facility] [address] [id number] [place] [address]- 5222 Feb, [facility] [place] [facility] [address] [id number] [place] [address] 0639 Feb, [facility] [place] [facility] [address] [id number] [place] [address] Feb, [facility] [place] [facility] [address] [id number] [place] [address]- 9495 Feb, [facility] [place] [facility] [address] [id number] [place] [address] 8238 Jan, [facility] [place] [facility] [address] [id number] [place] [address] 1272 Jan, [facility] [place] [facility] [address] [id number] [place] [address]- 9266 Jan, [facility] [place] [facility] [address] [id number] [place] [address]- 0636 Jan, [facility] [place] [facility] [address] [id number] [place] [address]- 4095 Jan, [facility] [place] [facility] [address] [id number] [place] [address]- 5401 Jan, [facility] [place] [facility] [address] [id number], [place] [address] 139[address] Jan, [facility] [address] [id number], [place] [address]- 132[address] Jan, [facility] [place] [facility] [address] [id number] [place] [address]- 4659 Jan, [facility] [place] [facility] [address] [id number], [place] [address]- 65[address] Jan, [facility] [facility] [address] [id number], [place] [address]99 Jan, [facility] [place] [facility] [address] [id number] [place] [address]- 0557 05 Jan, 2012 [facility] [place] [facility] [address] [id number] [place] [address]- 8310 Jan, [facility] [place] [facility] [address] [id number] [place] [address]- 3963 Jan, [facility] [place] [facility] [address] [id number] [place] [address]- 9438 Jan, [facility] [place] [facility] [address] [id number] [place] [address]- 1640 Jan, [facility] [place] [facility] [address] [id number] [place] [id number] Dec, [facility] [place] [facility] [address] [id number] [place] [address] Dec, [facility] [place] [facility] [address] [id number] [place] [address] Dec, [facility] [place] [facility] [address] [id number] [place] [address] 6927 Dec, [facility] [place] [facility] [address] [id number] [place] [address] 1574 Dec, [facility] [place] [facility] [address] [id number] [place] [address] 6260 Dec, [facility] [place] [facility] [address] [id number] [place] [address] 4832 Dec, [facility] [place] [facility] [address] [id number] [address] Dec, [facility] [place] [facility] [address] [id number] [place] [address] 08 Dec, 2011 [facility] [place] [facility] [address] [id number] [place] [address]- 2287 05 Dec, 2011 [facility] [place] [facility] [address] [id number], [place] [address] 18 Nov, 2011 [facility] [place] [facility] [address] [id number] [place] [address] 1380 13 Nov, 2011 [facility] [place] [facility] [address] [id number] [place] [address] 7483 24 Oct, 2011 [facility] [place] [facility] [address] [id number] [place] [address] 4191 Oct, [facility] [place] [facility] [address] [id number] [place] [address]- 0741 17 Oct, 2011 [facility] [place] [facility] [address] [id number] [place] [address] 6702 16 Oct, 2011 [facility] [place] [facility] [address] [id number] [place] [address] 9221 Oct, [facility] [place] [facility] [address] [id number] [place] [address]- 7993 Oct, [facility] [place] [facility] [address] [id number] [place] [address]- 4394 Oct, [facility] [place] [facility] [address] [id number] [place] [address]- 3686 Sep, [facility] [place] [facility] [address] [id number] [place] [address] 0615 Aug, [facility] [place] [facility] [address] [id number] [place] [address]- 7322 Aug, [facility] [place] [facility] [address] [id number] [place] [address]- 5588 Aug, [facility] [place] [facility] [address] [id number] [place] [address]- 1595 Aug, [facility] [place] [facility] [address] [id number] [place] [address] 6052 Aug, [facility] [place] [facility] [address] [id number] [place] [address] 9352 July, [facility] [place] [facility] [address] [id number] [place] [address] 0266 July, [facility] [place] [facility] [address] [id number] [place] [address]- 5367 July, [facility] [place] [facility] [address] [id number] [place] [address] 8196 Jun, [facility] [place] [facility] [address] [id number] [place] [address] 9608 Jun, [facility] [place] [facility] [address] [id number] [place] [address] 6095 Jun, [facility] [place] [facility] [address] [id number] [place] [address] 8577 Jun, [facility] [place] [facility] [address] [id number] [place] [address] 7370 May, [facility] [place] [facility] [address] [id number] [place] [address]- 0975 30 May, 2011 [facility] [place] [facility] [address] [id number] [place] [address]- 5313 29 May, 2011 [facility] [place] [facility] [address] [id number] [place] [address] 5327 28 May, 2011 [facility] [place] [facility] [address] [id number] [place] [address] 6420 May, [facility] [place] [facility] [address] [id number] [place] [address]- 8530 May, [facility] [place] [facility] [address] [id number] [place] [address] 2176 May, [facility] [place] [facility] [address] [id number] [place] [address]- 2554 May, [facility] [place] [facility] [address] [id number] [place] [address]- 1293 08 May, 2011 [facility] [place] [facility] [address] [id number] [place] [address]- 5474 05 May, 2011 [facility] [place] [facility] [address] [id number] [place] [address] 2546 May, [facility] [address] [id number] [place] [address]- 1456 May, [facility] [address] [id number] [place] [address]- 9646 Mar, [facility] [address] [id number] [place] [address]- 4227 Mar, [facility] [address] [id number] [place] [address]- 9503 28 Feb, 2011 [facility] [address] [id number] [place] [address] 7700 Feb, [facility] [address] [id number] [place] [address] 6612 Feb, [facility] [address] [id number] [place] [address] 5923 15 Feb, 2011 [facility] [address] [id number] [place] [address] 9558 Feb, [facility] [address] [id number] [place] [address] 3596 Feb, [facility] [address] [id number] [place] [address]- 8677 Feb, [facility] [address] [id number] [place] [address]- 3600 28 Jan, 2011 [facility] [address] [id number] [place] [address]- 5761 Jan, [facility] [address] [id number] [place] [address]- 5173 22 Jan, 2011 [facility] [address] [id number] [place] [address]- 3736 17 Jan, 2011 [facility] [address] [id number] [place] [address]- 9776 Jan, [facility] [place] [facility] [address] [id number] [place] [address]- 4082 Jan, [facility] [place] [facility] [address] [id number] [place] [address]- 7234 Dec, [facility] [place] [facility] [address] [id number] [place] [address]- 8203 Dec, [facility] [place] [facility] [address] [id number] [place] [address]- 9549 Dec, [facility] [place] [facility] [address] [id number] [place] [address]- 4354 July, [facility] [place] [facility] [address] [id number] [place] [address]- 4286 July, [facility] [place] [facility] [address] [id number] [place] [address]- 0405 Feb, [facility] [place] [facility] [address] [id number] [address]- 9992 Jan, [facility] [place] [facility] [address] [id number] [place] [address]- 4414 Dec, [facility] [place] [facility] [address] [id number] [address]- 9618 Dec, [facility] [place] [facility] [address] [id number], [place] [address]- 7521 Sep, [facility] [place] [facility] [address] [id number][place] [address]- 2264 Aug, [facility] [place] [facility] [address] [id number] [place] [address]- 3825 Jun, [facility] [place] [facility] [address] [id number], [place] [address]- 0978 Jun, [facility] [place] [facility] [address] [id number], [place] [address]- 9607 Jan, [facility] [place] [facility] [address] [id number], [place] [address] 3156 Jan, [facility] [place] [address], [place] [address] 92[address] Jan, [facility] [place] [address]65[address], [place] [address] 266[address] Jan, [facility] [place] [address], [place] [address]- [address]77 Dec, [facility] [place] [id number] [place] [address]- 8964 Dec, [facility] [place] [id number] [place] [address] 472987- 3261 Dec, [facility] [place] [id number] [place] [address]- 5819 Nov, [facility] [place] [id number] [place] [address]- 3512 July, [facility] [place] [address], [place] [address]- 7068 May, [facility] [place] [address], [place] [address]- 9512 Apr, [facility] [place] [address], [place] [address]- 9489 Feb, [facility] [place] [address], [place] [address] 5301 Dec, IMMUNIZATIONS No Known Immunizations SOCIAL HISTORY Never Assessed REASON FOR VISIT Triage--ADaviedRN PLAN OF CARE VITAL SIGNS MEDICATIONS Unknown Medications RESULTS No Results PROCEDURES No Known procedures INSTRUCTIONS MEDICATIONS ADMINISTERED No Known Medications MEDICAL (GENERAL) HISTORY Type Description Date Medical [...] History back surgery Laminectomy - Ortho 4 [facility] 10/04/2014 Surgical History Pain shot in lower back -Dr. Sheehan 08/23/15 Hospitalization History surgery
[2017-06-14] MEDS ORDERED: TR1C15 TP (22:11)
--- NOTE | 2017-06-14 22:11 | ED Integumentary General ---
General Stated Complaint: R SIDE BACK RASH Source: patient Exam Limitations: no limitations History of Present Illness Date Seen by Provider: Jun 14, 2017 Time Seen by Provider: 22:06 Initial Comments To ER with a rash to the right flank first noticed tonight during her shower as an itching sensation. No systemic symptoms. No history of this. Severity: moderate Location: torso Allergies and Home Medications Allergies Coded Allergies: azithromycin (Unverified Allergy, Unknown, 10/28/13) CHEST PAIN prednisone (Unverified Adverse Reaction, Unknown, RAISES BLOOD SUGAR, ) Home Medications Aspirin 81 Mg Tabec, 81 MG PO DAILY, (Reported) Cephalexin 500 Mg Capsule, 500 MG PO TID Prescribed by: ANGIE MAS on 06/11/171702 Citalopram Hydrobromide 20 Mg Tablet, 1 EACH PO BID, (Reported) Hum Insulin Nph/Reg Insulin Hm 10 Ml Vial, 110 UNITS SQ BID, (Reported) Lamotrigine 150 Mg Tablet, 150 MG PO DAILY, (Reported) Liraglutide 0.6 Mg/0.1 Ml Pen.injctr, 1.8 MG SC HS, (Reported) Losartan Potassium 25 Mg Tablet, 1 EACH PO BID, (Reported) Ondansetron 8 Mg Tab.rapdis, 8 MG PO Q6H PRN for NAUSEA/VOMITING-1ST LINE Prescribed by: ANGIE MAS on 06/11/171702 Phenazopyridine HCl 100 Mg Tablet, 100 MG PO Q8H PRN for pain Prescribed by: ANGIE MAS on 06/11/171702 Pioglitazone Hcl 45 Mg Tablet, 45 MG PO DAILY, (Reported) Simvastatin 40 Mg Tablet, 2 TAB PO DAILY, (Reported) Patient Home Medication List Home Medication List Reviewed: Yes Constitutional: see HPI, No chills, No fever EENTM: see HPI Respiratory: no symptoms reported Cardiovascular: no symptoms reported Musculoskeletal: no symptoms reported Skin: see HPI Psychiatric/Neurological: No Symptoms Reported Past Nmbkddf-Eovtnd-Wujqfu Hx Patient Social History 2nd Hand Smoke Exposure: No Recent Foreign Travel: No Contact w/Someone Who Travel: No Recent Hopitalizations: No Immunizations Up To Date Tetanus Booster (TDap): More than 5yrs PED Vaccines UTD: Yes Date of Pneumonia Vaccine: Mar 29, 2008 Date of Influenza Vaccine: Dec 28, 2016 Seasonal Allergies Seasonal Allergies: Yes Surgeries History of Surgeries: Yes (Carpal Tunnel bilat, HERNIA REPAIR, BACK SURGERY 2015) Surgeries: Section, Orthopedic Respiratory History of Respiratory Disorde: No Cardiovascular History of Cardiac Disorders: Yes Cardiac Disorders: High Cholesterol Neurological History of Neurological Disord: Yes Neurological Disorders: Headaches /Migraines Reproductive System Hx Reproductive Disorders: No Sexually Transmitted Disease: No HIV/AIDS: No Gastrointestinal History of Gastrointestinal Di: Yes Gastrointestinal Disorders: Abdominal Hernia, Irritable Bowel Musculoskeletal History of Musculoskeletal Dis: Yes Musculoskeletal Disorders: Arthritis, Chronic Back Pain Endocrine History of Endocrine Disorders: Yes (Type II, 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, Non-Insulin dep HEENT History of HEENT Disorders: No Cancer History of Cancer: No Psychosocial History of Psychiatric Problem: Yes Behavioral Health Disorders: Anxiety, Bipolar, Personality Disorder, Depression Integumentary History of Skin or Integumenta: No Blood Transfusions History of Blood Disorders: No Adverse Reaction to a Blood Tr: No Family Medical History Significant Family History: No Pertinent Family Hx Family Medial History: Alcoholism 19 FATHER Arthritis 19 MOTHER Cataracts 19 MOTHER Diabetes mellitus 19 FATHER 19 MOTHER FH: stroke 19 FATHER Hypercholesterolemia 19 MOTHER Hypertension 19 MOTHER No Family History of: Cardiovascular disease Glaucoma Osteoporosis Prostate cancer Physical Exam Vital Signs Capillary Refill : General Appearance: WD/WN, no apparent distress HEENT: PERRL/EOMI, normal ENT inspection Neck: non-tender, full range of motion Respiratory: no respiratory distress, no accessory muscle use Gastrointestinal: normal bowel sounds, non tender Neurologic/Psychiatric: alert, normal mood/affect, oriented x 3 Skin: normal color, warm/dry Skin Problem Character: erythema, scales, other (to the right side of the back in the flank is a vertically oriented rash erythematous flat scaly. This is itchy and nontender to palpation. There are no vesicles. There is no abscess. No cellulitis. This is vertically oriented and does not appear to follow a single dermatome does not have the appearance of shingles. This has the appearance more of eczema. She noticed it first tonight in the shower and itching brought her attention to it.) Progress/Results/Core Measures Results/Orders My Orders Orders - SOCO JOAQUIN APRN Triamcinolone 0.1% Cream 15 Gm (Kenalog (06/15/17 09:00) Departure Impression Impression: Primary Impression: Eczema Disposition: 01 HOME, SELF-CARE Condition: Stable Departure-Patient Inst. Decision time for Depature: 22:09 Referrals: [facility] (PCP) Primary Care Physician BEVERLY TAO (Family) Primary Care Physician Patient Instructions: Skin Rash Add. Discharge Instructions: 1. Apply any topical steroid cream twice daily for 7 days. Follow-up with your doctor this week for recheck. This does not have the typical appearance of shingles, however, if this developed blisters, pain or any other concerning symptoms, he should follow-up with your primary care provider to be started on antivirals. Scripts Triamcinolone Acet (Triamcinolone Acetonide 0.1% Cream) 15 Gm Cr 15 GM TP BID, #1 TUBE Prov: SOCO JOAQUIN APRN 06/14/17 Images Torso/Trunk 1 - Rash SOCO JOAQUIN APRN Jun 14, 2017 22:11
[2017-06-14] MEDS ORDERED: TRIAMCINOLONE 0.1% CR (KENALOG) 15 GM TUBE ONE (22:15)
[2017-06-14 22:20] VITALS: BP 129/79
--- OUTSIDE RECORDS SUMMARY | 2017-06-14 22:20 | XMS REPORT | Continuity of Care Document ---
Author Author [facility] Address Unknown Phone Unavailable Allergies Active Description Code Type Severity Reaction Onset Reported/Identified Relationship to Patient Clinical Status Yes Zithromax Drug Allergy 05/08/2008 Yes Zithromax Drug Allergy N/A N/A 05/08/2008 Yes azithromycin [id number] Drug Allergy Unknown N/A 10/28/2013 Yes prednisone [id number] Drug Allergy Unknown RAISES BLOOD ESPINOZA 10/28/2013 [...] 250.00 DIABETES MELLITUS TYPE 2 12/22/2007 ARIAN SU PSYD ANN L 250.00 DIABETES MELLITUS TYPE [...] 250.00 DIABETES MELLITUS TYPE 2 12/22/2007 ARIAN SU PSYD ANN L 250.00 DIABETES MELLITUS TYPE 2 12/22/2007 AISLINN OCONNOR, BEVERLY S 250.00 DIABETES MELLITUS TYPE 2 12/22/2007 ARIAN US PSYD ANN L 250.00 DIABETES MELLITUS TYPE 2 12/22/2007 NELSON OCONNOR, JAVAD 250.00 DIABETES MELLITUS TYPE 2 12/22/2007 AISLINN OCONNOR, BEVERLY S 250.00 DIABETES MELLITUS TYPE 2 12/22/2007 NELSON CELLULOID TRIMMER, JAVAD 250.00 DIABETES MELLITUS TYPE 2 12/22/2007 [...] 250.00 DIABETES MELLITUS TYPE 2 12/22/2007 ROXANNA CELLULOID TRIMMER, CATALINA A 250.00 DIABETES MELLITUS TYPE 2 12/22/2007 ARIAN US PSYD ANN L 250.00 DIABETES MELLITUS TYPE 2 12/22/2007 ARIAN US PSYD ANN L 250.00 DIABETES MELLITUS TYPE 2 12/22/2007 ARIAN US PSYD ANN L 250.00 DIABETES MELLITUS TYPE 2 01/24/2008 V72.31 Routine Gynecological Examination 01/24/2008 V72.31 Routine Gynecological Examination 01/24/2008 V72.31 Routine Gynecological Examination 01/24/2008 BEVERLY ATO APRN V72.31 Routine Gynecological Examination 01/24/2008 ARIAN [...] And Abscess Of Unspecified Sites 04/02/2008 AISLINN CELLULOID TRIMMER, BEVERLY S 682.9 Cellulitis And Abscess Of [...] And Abscess Of Unspecified Sites 04/02/2008 AISLINN CELLULOID TRIMMER, BEVERLY S 682.9 Cellulitis And Abscess Of Unspecified Sites 04/02/2008 ARIAN US PSYD ANN L 682.9 Cellulitis And Abscess Of Unspecified Sites 04/02/2008 ARIAN US PSYD ANN L 682.9 Cellulitis And Abscess Of Unspecified Sites 04/02/2008 CLAUDE TAO APRNNDA S 682.9 Cellulitis And Abscess Of Unspecified Sites 04/02/2008 ARIAN US PSYD ANN L 682.9 Cellulitis And Abscess Of Unspecified Sites 04/02/2008 NELSON CELLULOID TRIMMER, JAVAD 682.9 Cellulitis And Abscess Of Unspecified Sites 04/02/2008 CLAUDE TAO APRNNDA S 682.9 Cellulitis And Abscess Of Unspecified Sites 04/02/2008 NELSON CELLULOID TRIMMER, JAVAD 682.9 Cellulitis And Abscess Of Unspecified [...] And Abscess Of Unspecified Sites 04/02/2008 NELSON CELLULOID TRIMMER, JAVAD 682.9 Cellulitis And Abscess Of Unspecified [...] Respiratory Infections Of Unspecified Site 05/08/2008 AISLINN CELLULOID TRIMMER, BEVERLY S 465.9 Acute Upper Respiratory Infections [...] Respiratory Infections Of Unspecified Site 05/08/2008 AISLINN CELLULOID TRIMMER, BEVERLY S 465.9 Acute Upper Respiratory Infections Of Unspecified Site 05/08/2008 ARIAN US PSYD ANN L 465.9 Acute Upper Respiratory Infections Of Unspecified Site 05/08/2008 ARIAN US PSYD ANN L 465.9 Acute Upper Respiratory Infections Of Unspecified Site 05/08/2008 AISLINN CELLULOID TRIMMER, BEVERLY S 465.9 Acute Upper Respiratory Infections Of Unspecified Site 05/08/2008 ARIAN US PSYD ANN L 465.9 Acute Upper Respiratory Infections Of Unspecified Site 05/08/2008 NELSON CELLULOID TRIMMER, JAVAD 465.9 Acute Upper Respiratory Infections Of Unspecified Site 05/08/2008 AISLINN CELLULOID TRIMMER, BEVERLY S 465.9 Acute Upper Respiratory Infections Of Unspecified Site 05/08/2008 NLESON CELLULOID TRIMMER, JAVAD 465.9 Acute Upper Respiratory Infections Of Unspecified Site 05/08/2008 ARIAN US PSYD ANN L 465.9 Acute Upper Respiratory Infections Of Unspecified Site 05/08/2008 ARIAN US PSYD ANN L 465.9 Acute Upper Respiratory Infections Of Unspecified Site 05/08/2008 ARIAN US PSYD ANN L 465.9 Acute Upper Respiratory Infections Of Unspecified Site 05/08/2008 AISLINN CELLULOID TRIMMER, BEVERLY S 465.9 Acute Upper Respiratory Infections [...] Specified Infectious And Parasitic Diseases 05/30/2008 AISLINN CELLULOID TRIMMER, BEVERLY S 136.8 Other Specified Infectious And [...] Specified Infectious And Parasitic Diseases 05/30/2008 NELSON CELLULOID TRIMMER, JAVAD 136.8 Other Specified Infectious And Parasitic [...] Specified Infectious And Parasitic Diseases 05/30/2008 NELSON CELLULOID TRIMMER, JAVAD 136.8 Other Specified Infectious And Parasitic [...] L 729.5 Pain In Limb 06/06/2008 NELSON CELLULOID TRIMMER, JAVAD 729.5 Pain In Limb 06/06/2008 AISLINNCHICHI OCONNOR, BEVERLY S 729.5 Pain In Limb 06/06/2008 NELSON CELLULOID TRIMMER, JAVAD 729.5 Pain In Limb 06/06/2008 ARIAN US PSYD ANN L 729.5 Pain In Limb 06/06/2008 ARIAN US PSYD ANN L 729.5 Pain In Limb 06/06/2008 ARIAN US PSYD ANN L 729.5 Pain In Limb 06/06/2008 AISLINN OCONNOR BEVERLY S 729.5 Pain In Limb 06/06/2008 ROXANNAKassi OCONNOR CATALINA A 729.5 Pain In Limb 06/06/2008 NELSON CELLULOID TRIMMER, JAVAD 729.5 Pain In Limb 06/06/2008 ARIAN US PSYD ANN L 729.5 Pain In Limb 06/06/2008 ARIAN US PSYD ANN L 729.5 Pain In Limb 06/06/2008 AISLINN OCONNOR BEVERYL S 729.5 Pain In Limb 06/06/2008 ARIAN [...] T 794.17 Abnormal Electromyogram (emg) 07/02/2008 DASHA CELLULOID TRIMMER HARLEEN T 794.17 Abnormal Electromyogram (emg) 07/02/2008 [...] L 794.17 Abnormal Electromyogram (emg) 07/02/2008 AISLINN CELLULOID TRIMMER, BEVERLY S 794.17 Abnormal Electromyogram (emg) 07/02/2008 MCCLEEARY PSYD, DAISHA L 794.17 Abnormal Electromyogram (emg) 07/02/2008 NELSON CELLULOID TRIMMER, JAVAD 794.17 Abnormal Electromyogram (emg) 07/02/2008 AISLINN CELLULOID TRIMMER, BEVERLY S 794.17 Abnormal Electromyogram (emg) 07/02/2008 NELSON CELLULOID TRIMMER, JAVAD 794.17 Abnormal Electromyogram (emg) 07/02/2008 MCCLEEARY PSYD, DAISHA L 794.17 Abnormal Electromyogram (emg) 07/02/2008 MCCLEEARY PSYD, DAISHA L 794.17 Abnormal Electromyogram (emg) 07/02/2008 MCCLEEARY PSYD, DAISHA L 794.17 Abnormal Electromyogram (emg) 07/02/2008 AISLINN CELLULOID TRIMMER, BEVERLY S 794.17 Abnormal Electromyogram (emg) 07/02/2008 ROXANNA CELLULOID TRIMMER, CATALINA A 794.17 Abnormal Electromyogram (emg) 07/02/2008 NELSON CELLULOID TRIMMER, JAVAD 794.17 Abnormal Electromyogram (emg) 07/02/2008 MCCLEEARY PSYD, DAISHA L 794.17 Abnormal Electromyogram (emg) 07/02/2008 MCCLEEARY PSYD, DAISHA L 794.17 Abnormal Electromyogram (emg) 07/02/2008 AISLINN CELLULOID TRIMMER, BEVERLY S 794.17 Abnormal Electromyogram (emg) 07/02/2008 MCCLEEARY PSYD, DAISHA L 794.17 Abnormal Electromyogram (emg) 07/02/2008 MCCLEEARY PSYD, DAISHA L 794.17 Abnormal Electromyogram (emg) 07/02/2008 ROXANNA CELLULOID TRIMMER, CATALINA A 794.17 Abnormal Electromyogram (emg) 07/02/2008 [...] JERMAINE FERRER APRN 784.0 Headache 01/30/2009 ABEBA GAZRA, DAISHA L 784.0 Headache 01/30/2009 DASHA ANASTASIA, [...] PSYD, DAISHA L 784.0 Headache 01/30/2009 AISLINN CELLULOID TRIMMER, BEVERLY S 784.0 Headache 01/30/2009 MCCLEEARY PSYD, DAISHA L 784.0 Headache 01/30/2009 LUCIANO WILLARD DO K 784.0 Headache 01/30/2009 LOUISE COBOS MD 784.0 Headache 01/30/2009 MCCLEEARY PSYD, DAISHA L 784.0 Headache 01/30/2009 AISLINN CELLULOID TRIMMER, BEVERLY S 784.0 Headache 01/30/2009 MCCLEEARY PSYD, DAISHA L 784.0 Headache 01/30/2009 MCCLEEARY PSYD, DAISHA L 784.0 Headache 01/30/2009 AISLINN CELLULOID TRIMMER, BEVERLY S 784.0 Headache 01/30/2009 MCCLEEARY PSYD, DAISHA L 784.0 Headache 01/30/2009 NELSON CELLULOID TRIMMER, JAVAD 784.0 Headache 01/30/2009 AISLINN CELLULOID TRIMMER, BEVERLY S 784.0 Headache 01/30/2009 NELSON CELLULOID TRIMMER, JAVAD 784.0 Headache 01/30/2009 MCCLEEARY PSYD, DAISHA L 784.0 Headache 01/30/2009 MCCLEEARY PSYD, DAISHA L 784.0 Headache 01/30/2009 MCCLEEARY PSYD, DAISHA L 784.0 Headache 01/30/2009 AISLINN CELLULOID TRIMMER, BEVERLY S 784.0 Headache 01/30/2009 ROXANNA CELLULOID TRIMMER, CATALINA A 784.0 Headache 01/30/2009 NELSON CELLULOID TRIMMER, JAVAD 784.0 Headache 01/30/2009 MCCLEEARY PSYD, DAISHA L 784.0 Headache 01/30/2009 MCCLEEARY PSYD, DAISHA L 784.0 Headache 01/30/2009 AISLINN CELLULOID TRIMMER, BEVERLY S 784.0 Headache 01/30/2009 MCCLIBBY GARZA, [...] Pain In Joint, Ankle And Foot 07/08/2009 ADSHA OCONNOR HARLEEN T 611.71 Breast Pain 07/08/2009 [...] In Joint, Ankle And Foot 07/08/2009 ARIAN SU PSYD ANN L 611.71 Breast Pain 07/08/2009 ARIAN US PSYD ANN L 719.47 Pain In Joint, Ankle And Foot 07/08/2009 ARIAN US PSYD ANN L 611.71 Breast Pain 07/08/2009 ARIAN US PSYD ANN L 719.47 Pain In Joint, Ankle And Foot 07/08/2009 AISLINN CELLULOID TRIMMER, BEVERLY S 611.71 Breast Pain 07/08/2009 AISLINN CELLULOID TRIMMER, BEVERLY S 719.47 Pain In Joint, Ankle And Foot 07/08/2009 ARIAN US PSYD L 611.71 Breast Pain 07/08/2009 ARIAN US PSYD ANN L 719.47 Pain In Joint, Ankle And Foot 07/08/2009 NELSON CELLULOID TRIMMER, JAVAD 611.71 Breast Pain 07/08/2009 NELSON CELLULOID TRIMMER, JAVAD 719.47 Pain In Joint, Ankle And Foot 07/08/2009 AISLINN APRN, BEVERLY S 611.71 Breast Pain 07/08/2009 AISLINN CELLULOID TRIMMER, BEVERLY S 719.47 Pain In Joint, Ankle And Foot 07/08/2009 NELSON CELLULOID TRIMMER, JAVAD 611.71 Breast Pain 07/08/2009 NELSON CELLULOID TRIMMER, JAVAD 719.47 Pain In Joint, Ankle And [...] BEVERLY S 611.71 Breast Pain 07/08/2009 AISLINN CELLULOID TRIMMER, BEVERLY S 719.47 Pain In Joint, Ankle And Foot 07/08/2009 ROXANNA CELLULOID TRIMMER, CATALINA A 611.71 Breast Pain 07/08/2009 ROXANNA CELLULOID TRIMMER, CATALINA A 719.47 Pain In Joint, Ankle And Foot 07/08/2009 NELSON CELLULOID TRIMMER, JAVAD 611.71 Breast Pain 07/08/2009 NELSON CELLULOID TRIMMER, JAVAD 719.47 Pain In Joint, Ankle And [...] Infection Of Skin And Subcutaneous Tissue 07/16/2009 JEMRAINE FERRER APRN 686.9 Unspecified Local Infection Of [...] Of Skin And Subcutaneous Tissue 07/16/2009 NELSON CELLULOID TRIMMER, JAVAD 686.9 Unspecified Local Infection Of Skin And Subcutaneous Tissue 07/16/2009 LATONYA TAO APRNA S 686.9 Unspecified Local Infection Of Skin And Subcutaneous Tissue 07/16/2009 NELSON CELLULOID TRIMMER JAVAD 686.9 Unspecified Local Infection Of Skin [...] Of Skin And Subcutaneous Tissue 07/16/2009 NELSON CELLULOID TRIMMER, JAVAD 686.9 Unspecified Local Infection Of Skin [...] DAISHA L 847.0 Sprain/strain Neck 09/30/2009 AISLINN CELLULOID TRIMMER, BEVERLY S 847.0 Sprain/strain Neck 09/30/2009 ABEBA GARZA, DAISHA L 847.0 Sprain/strain Neck 09/30/2009 ABEBA GARZA, DAISHA L 847.0 Sprain/strain Neck 09/30/2009 AISLINN CELLULOID TRIMMER, BEVERLY S 847.0 Sprain/strain Neck 09/30/2009 ARIAN US PSYD ANN L 847.0 Sprain/strain Neck 09/30/2009 NELSON CELLULOID TRIMMER, JAVAD 847.0 Sprain/strain Neck 09/30/2009 AISLINN OCONNOR, BEVERLY S 847.0 Sprain/strain Neck 09/30/2009 NELSON CELLULOID TRIMMER, JAVAD 847.0 Sprain/strain Neck 09/30/2009 ABEBA GARZA, DAISHA L 847.0 Sprain/strain Neck 09/30/2009 ABEBA GARZA, DAISHA L 847.0 Sprain/strain Neck 09/30/2009 ARIAN US PSYD ANN L 847.0 Sprain/strain Neck 09/30/2009 AISLINN OCONNOR BEVERLY S 847.0 Sprain/strain Neck 09/30/2009 CATALINA MCKNIGHT APRN A 847.0 Sprain/strain Neck 09/30/2009 NELSON CELLULOID TRIMMER, JAVAD 847.0 Sprain/strain Neck 09/30/2009 ABEBA GARZA, [...] Reading Without Diagnosis Of Hypertension 01/07/2010 NELSON CELLULOID TRIMMER, JAVAD 796.2 Elevated Blood Pressure Reading Without Diagnosis Of Hypertension 01/07/2010 AISLINN OCONNOR BEVERLY S 796.2 Elevated Blood Pressure Reading Without Diagnosis Of Hypertension 01/07/2010 NELSON CELLULOID TRIMMER, JAVAD 796.2 Elevated Blood Pressure Reading Without [...] Reading Without Diagnosis Of Hypertension 01/07/2010 NELSON CELLULOID TRIMMER, JAVAD 796.2 Elevated Blood Pressure Reading Without [...] FERRER APRN 296.89 MO BIPOLAR II 10/16/2010 ARAIN US PSYD L 296.89 MO BIPOLAR II [...] L 296.89 MO BIPOLAR II 10/16/2010 NELSON CELLULOID TRIMMER, JAVAD 296.89 MO BIPOLAR II 10/16/2010 CLAUDE [...] OCONNOR, JAVAD 296.89 MO BIPOLAR II 10/16/2010 AIRAN US PSYD ANN L 296.89 MO BIPOLAR [...] 296.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 I MIXED MODERATE 01/22/2011 ARAIN US PSYD L 296.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 I [...] MO BIPOLAR I MIXED MODERATE 01/22/2011 HARLEEN OLU APRN 296.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 I MIXED MODERATE [...] MO BIPOLAR I MIXED MODERATE 01/22/2011 NELSON CELLULOID TRIMMER, JAVAD 296.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 I MIXED MODERATE 01/22/2011 AISLINN OCONNOR, BEVERLY S 296.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 I MIXED MODERATE 01/22/2011 NELSON CELLULOID TRIMMER, JAVAD 296.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 I MIXED MODERATE 01/22/2011 ARIAN US PSYD ANN L 296.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 I MIXED MODERATE 01/22/2011 ARIAN US PSYD ANN L 296.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 I MIXED MODERATE 01/22/2011 ARIAN US PSYD ANN L 296.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 I MIXED MODERATE 01/22/2011 AISLINNCHICHI OCONNOR, BEVERLY S 296.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 I MIXED MODERATE 01/22/2011 ROXANNA CELLULOID TRIMMER, CATALINA A 296.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 I MIXED [...] L 535.00 Acute Gastritis (without Hemorrhage) 02/02/2011 WILALRD DO, LUCIANO K 354.0 Carpal Tunnel Syndrome [...] S 354.0 Carpal Tunnel Syndrome 02/02/2011 AISLINN CELLULOID TRIMMER, BEVERLY S 535.00 Acute Gastritis (without Hemorrhage) 02/02/2011 JERMAINE FERRER APRN D 354.0 Carpal Tunnel Syndrome 02/02/2011 JERMAINE FERRER APRN D 535.00 Acute Gastritis (without Hemorrhage) 02/02/2011 ARIAN US PSYD L 354.0 Carpal Tunnel Syndrome 02/02/2011 ARIAN US PSYD ANN L 535.00 Acute Gastritis (without Hemorrhage) 02/02/2011 DASHA CELLULOID TRIMMER, HARLEEN T 354.0 Carpal Tunnel Syndrome 02/02/2011 DASHA CELLULOID TRIMMER, HARLEEN T 535.00 Acute Gastritis (without Hemorrhage) 02/02/2011 DASHA CELLULOID TRIMMER, HARLEEN T 354.0 Carpal Tunnel Syndrome 02/02/2011 DASHA CELLULOID TRIMMER, HARLEEN T 535.00 Acute Gastritis (without Hemorrhage) [...] 535.00 Acute Gastritis (without Hemorrhage) 02/02/2011 AISLINN CELLULOID TRIMMER, BEVERLY S 354.0 Carpal Tunnel Syndrome 02/02/2011 AISLINN CELLULOID TRIMMER, BEVERLY S 535.00 Acute Gastritis (without Hemorrhage) [...] 535.00 Acute Gastritis (without Hemorrhage) 02/02/2011 AISLINN CELLULOID TRIMMER, BEVERLY S 354.0 Carpal Tunnel Syndrome 02/02/2011 AISLINN CELLULOID TRIMMER, BEVERLY S 535.00 Acute Gastritis (without Hemorrhage) 02/02/2011 ARIAN US PSYD ANN L 354.0 Carpal Tunnel Syndrome 02/02/2011 ARIAN US PSYD ANN L 535.00 Acute Gastritis (without Hemorrhage) 02/02/2011 ARIAN US PSYD ANN L 354.0 Carpal Tunnel Syndrome 02/02/2011 ARIAN US PSYD ANN L 535.00 Acute Gastritis (without Hemorrhage) 02/02/2011 AISLINN CELLULOID TRIMMER, BEVERLY S 354.0 Carpal Tunnel Syndrome 02/02/2011 AISLINN CELLULOID TRIMMER, BEVERLY S 535.00 Acute Gastritis (without Hemorrhage) 02/02/2011 ARIAN US PSYD ANN L 354.0 Carpal Tunnel Syndrome 02/02/2011 ARIAN US PSYD ANN L 535.00 Acute Gastritis (without Hemorrhage) 02/02/2011 NELSON CELLULOID TRIMMER, JAVAD 354.0 Carpal Tunnel Syndrome 02/02/2011 NELSON CELLULOID TRIMMER, JAVAD 535.00 Acute Gastritis (without Hemorrhage) 02/02/2011 AISLINN CELLULOID TRIMMER, BEVERLY S 354.0 Carpal Tunnel Syndrome 02/02/2011 AISLINN CELLULOID TRIMMER, BEVERLY S 535.00 Acute Gastritis (without Hemorrhage) 02/02/2011 NELSON CELLULOID TRIMMER, JAVAD 354.0 Carpal Tunnel Syndrome 02/02/2011 NELSON CELLULOID TRIMMER, JAVAD 535.00 Acute Gastritis (without Hemorrhage) 02/02/2011 [...] 535.00 Acute Gastritis (without Hemorrhage) 02/02/2011 AISLINN CELLULOID TRIMMER, BEVERLY S 354.0 Carpal Tunnel Syndrome 02/02/2011 AISLINN CELLULOID TRIMMER, BEVERLY S 535.00 Acute Gastritis (without Hemorrhage) 02/02/2011 ROXANNA CELLULOID TRIMMER, CATALINA A 354.0 Carpal Tunnel Syndrome 02/02/2011 ROXANNA CELLULOID TRIMMER, CATALINA A 535.00 Acute Gastritis (without Hemorrhage) 02/02/2011 NELSON CELLULOID TRIMMER, JAVAD 354.0 Carpal Tunnel Syndrome 02/02/2011 NELSON CELLULOID TRIMMER, JAVAD 535.00 Acute Gastritis (without Hemorrhage) 02/02/2011 [...] 535.00 Acute Gastritis (without Hemorrhage) 02/02/2011 ROXANNA CELLULOID TRIMMER, CATALINA A 354.0 Carpal Tunnel Syndrome 02/02/2011 ROXANNA CELLULOID TRIMMER, CATALINA A 535.00 Acute Gastritis (without Hemorrhage) [...] 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 02/12/2011 NELSON CELLULOID TRIMMER, JAVAD 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 02/12/2011 [...] DX (3 YRS AND ABOVE, IM) 02/17/2011 BVEERLY TAO APRN S V04.81 FLU DX (3 [...] COBOS MD 300.02 AN GEN ANXIETY 05/29/2011 JERMAIEN FERRER APRN 300.02 AN GEN ANXIETY 05/29/2011 [...] ANN L 787.01 NAUSEA WITH VOMITING 06/01/2011 RAIAN US PSYD ANN L 789.07 ABDOMINAL PAIN [...] APRN 787.01 NAUSEA WITH VOMITING 06/01/2011 ROXANNA CELLULOID TRIMMER, CATALINA A 789.07 ABDOMINAL PAIN GENERALIZED 06/01/2011 [...] APRN 787.01 NAUSEA WITH VOMITING 06/01/2011 NELSON CELLULOID TRIMMER, JAVAD 789.07 ABDOMINAL PAIN GENERALIZED 06/01/2011 AISLINN CELLULOID TRIMMER, BEVERLY S 787.01 NAUSEA WITH VOMITING 06/01/2011 AISLINN CELLULOID TRIMMER, BEVERLY S 789.07 ABDOMINAL PAIN GENERALIZED 06/01/2011 NELSON CELLULOID TRIMMER, JAVAD 787.01 NAUSEA WITH VOMITING 06/01/2011 NELSON CELLULOID TRIMMER, JAVAD 789.07 ABDOMINAL PAIN GENERALIZED 06/01/2011 ARIAN [...] S 787.01 NAUSEA WITH VOMITING 06/01/2011 AISLINN CELLULOID TRIMMER, BEVERLY S 789.07 ABDOMINAL PAIN GENERALIZED 06/01/2011 ROXANNAKassi OCONNOR CATALINA A 787.01 NAUSEA WITH VOMITING 06/01/2011 ROXANNA CELLULOID TRIMMER, CATALINA A 789.07 ABDOMINAL PAIN GENERALIZED 06/01/2011 NELSON CELLULOID TRIMMER, JAVAD 787.01 NAUSEA WITH VOMITING 06/01/2011 NELSON CELLULOID TRIMMER, JAVAD 789.07 ABDOMINAL PAIN GENERALIZED 06/01/2011 ARIAN [...] L 789.07 ABDOMINAL PAIN GENERALIZED 06/01/2011 ROXANNA CELLULOID TRIMMER, CATALINA A 787.01 NAUSEA WITH VOMITING 06/01/2011 ROXANNA CELLULOID TRIMMER, CATALINA A 789.07 ABDOMINAL PAIN GENERALIZED 06/01/2011 [...] PSYD ANN L 787.91 DIARRHEA 06/17/2011 NELSON CELLULOID TRIMMER, JAVAD 787.91 DIARRHEA 06/17/2011 AISLINN OCONNOR BEVERLY S 787.91 DIARRHEA 06/17/2011 NELSON CELLULOID TRIMMER, JAVAD 787.91 DIARRHEA 06/17/2011 ARIAN US PSYD ANN L 787.91 DIARRHEA 06/17/2011 ARIAN US PSYD ANN L 787.91 DIARRHEA 06/17/2011 ARIAN US PSYD ANN L 787.91 DIARRHEA 06/17/2011 AISLINN OCONNOR BEVERLY S 787.91 DIARRHEA 06/17/2011 ROXANNA OCONNOR, CATALINA A 787.91 DIARRHEA 06/17/2011 NELSON CELLULOID TRIMMER, JAVAD 787.91 DIARRHEA 06/17/2011 ARIAN US PSYD [...] CATALINA MCKNIGHT APRN 787.1 HEARTBURN 09/07/2011 NELSON CELLULOID TRIMMER, JAVAD 787.1 HEARTBURN 09/07/2011 ARIAN US PSYD [...] MO BIPOLAR I MIXED UNSPECIFIED 01/01/2012 NELSON CELLULOID TRIMMER, JAVAD 296.60 MO BIPOLAR I MIXED UNSPECIFIED [...] MO BIPOLAR I MIXED UNSPECIFIED 01/01/2012 ROXANNA CELLULOID TRIMMER, CATALINA A 296.60 MO BIPOLAR I MIXED [...] PSYD ANN L 593.9 RENAL INSUFFICIENCY 01/07/2012 WILLADR DO, LUCIANO K 356.9 NEUROPATHY 01/07/2012 WILLARD DO, LUCIANO K 593.9 RENAL INSUFFICIENCY 01/07/2012 JERAMINE FERRER APRN D 356.9 NEUROPATHY 01/07/2012 JERMAINE FERRER APRN D 593.9 RENAL INSUFFICIENCY 01/07/2012 ARAIN US PSYD L 356.9 NEUROPATHY 01/07/2012 ARIAN [...] ANN L 593.9 RENAL INSUFFICIENCY 01/07/2012 NELSON CELLULOID TRIMMER, JAVAD 356.9 NEUROPATHY 01/07/2012 NELSON CELLULOID TRIMMER, JAVAD 593.9 RENAL INSUFFICIENCY 01/07/2012 AISLINN OCONNOR, BEVERLY S 356.9 NEUROPATHY 01/07/2012 AISLINNCHICHI RUIZN, BEVERLY S 593.9 RENAL INSUFFICIENCY 01/07/2012 NELSON CELLULOID TRIMMER, JAVAD 356.9 NEUROPATHY 01/07/2012 NELSON CELLULOID TRIMMER, JAVAD 593.9 RENAL INSUFFICIENCY 01/07/2012 ARIAN US [...] CATALINA A 593.9 RENAL INSUFFICIENCY 01/07/2012 NELSON AMDAI OCONNORETTE 356.9 NEUROPATHY 01/07/2012 NELSON MADAI OCONNORETTE [...] OF UNSPECIFIED SITE OF BACK 01/29/2012 AISLINN CELLULOID TRIMMER, BEVERLY S 720.2 SACROILIITIS NOT ELSEWHERE CLASSIFIED 01/29/2012 AISLINN CELLULOID TRIMMER, BEVERLY S 724.3 SCIATICA 01/29/2012 AISLINN CELLULOID TRIMMER, BEVERLY S 847.9 SPRAIN OF UNSPECIFIED SITE [...] 720.2 SACROILIITIS NOT ELSEWHERE CLASSIFIED 01/29/2012 ROXANNA CELLULOID TRIMMER, CATALINA A 724.3 SCIATICA 01/29/2012 ROXANNA CELLULOID TRIMMER, CATALINA A 847.9 SPRAIN OF UNSPECIFIED SITE OF BACK 01/29/2012 AISLINN CELLULOID TRIMMER, BEVERLY S 720.2 SACROILIITIS NOT ELSEWHERE CLASSIFIED 01/29/2012 AISLINN CELLULOID TRIMMER, BEVERLY S 724.3 SCIATICA 01/29/2012 AISLINN OCONNOR [...] OF UNSPECIFIED SITE OF BACK 01/29/2012 NELSON CELLULOID TRIMMER, JAVAD 720.2 SACROILIITIS NOT ELSEWHERE CLASSIFIED 01/29/2012 NELSON CELLULOID TRIMMER, JAVAD 724.3 SCIATICA 01/29/2012 NELSON CELLULOID TRIMMER JAVAD 847.9 SPRAIN OF UNSPECIFIED SITE OF BACK 01/29/2012 AISLINN CELLULOID TRIMMER, BEVERLY S 720.2 SACROILIITIS NOT ELSEWHERE CLASSIFIED 01/29/2012 AISLINN CELLULOID TRIMMER, BEVERLY S 724.3 SCIATICA 01/29/2012 AISLINN CELLULOID TRIMMER, BEVERLY S 847.9 SPRAIN OF UNSPECIFIED SITE OF BACK 01/29/2012 NELSON CELLULOID TRIMMER, JAVAD 720.2 SACROILIITIS NOT ELSEWHERE CLASSIFIED 01/29/2012 NELSON OCONNOR JAVAD 724.3 SCIATICA 01/29/2012 ENLSON CELLULOID TRIMMER, JAVAD 847.9 SPRAIN OF UNSPECIFIED SITE OF [...] OF UNSPECIFIED SITE OF BACK 01/29/2012 AISLINN CELLULOID TRIMMER, BEVERLY S 720.2 SACROILIITIS NOT ELSEWHERE CLASSIFIED 01/29/2012 AISLINN CELLULOID TRIMMER, BEVERLY S 724.3 SCIATICA 01/29/2012 AISLINN CELLULOID TRIMMER, BEVERLY S 847.9 SPRAIN OF UNSPECIFIED SITE OF BACK 01/29/2012 ROXANNA CELLULOID TRIMMER, CATALINA A 720.2 SACROILIITIS NOT ELSEWHERE CLASSIFIED 01/29/2012 ROXANNA CELLULOID TRIMMER, CATALINA A 724.3 SCIATICA 01/29/2012 ROXANNA CELLULOID TRIMMER, CATALINA A 847.9 SPRAIN OF UNSPECIFIED SITE OF BACK 01/29/2012 NELSON CELLULOID TRIMMER JAVAD 720.2 SACROILIITIS NOT ELSEWHERE CLASSIFIED 01/29/2012 NELSON CELLULOID TRIMMER, JAVAD 724.3 SCIATICA 01/29/2012 NELSON CELLULOID TRIMMER, JAVAD 847.9 SPRAIN OF UNSPECIFIED SITE OF [...] OF UNSPECIFIED SITE OF BACK 01/29/2012 AISLINN CELLULOID TRIMMER, BEVERLY S 720.2 SACROILIITIS NOT ELSEWHERE CLASSIFIED 01/29/2012 AISLINN CELLULOID TRIMMER, BEVERLY S 724.3 SCIATICA 01/29/2012 AISLINN CELLULOID TRIMMER, BEVERLY S 847.9 SPRAIN OF UNSPECIFIED SITE [...] OF UNSPECIFIED SITE OF BACK 01/29/2012 ARIAN SU PSYD ANN L 720.2 SACROILIITIS NOT ELSEWHERE [...] BEVERLY TAO APRN S 611.71 MASTODYNIA 04/06/2012 ARINA US PSYD L 611.71 MASTODYNIA 04/06/2012 ARIAN [...] TAO APRN S 611.71 MASTODYNIA 04/06/2012 CATALINA CMKNIGHT APRN A 611.71 MASTODYNIA 04/06/2012 JAVAD DAMON [...] DO, LUCIANO K 791.0 PROTEINURIA 08/25/2012 GARTON CELLULOID TRIMMERJERMAINE Solitario D 791.0 PROTEINURIA 08/25/2012 ARIAN US PSYD L 791.0 PROTEINURIA 08/25/2012 ROXANNA CELLULOID TRIMMER, CATALINA A 791.0 PROTEINURIA 08/25/2012 AISLINN CELLULOID TRIMMER, BEVERLY S 791.0 PROTEINURIA 08/25/2012 GARSOURAV CELLULOID TRIMMERJERMAINE Solitario 791.0 PROTEINURIA 08/25/2012 ARIAN US PSYD L 791.0 PROTEINURIA 08/25/2012 DASHA CELLULOID TRIMMER, HARLEEN T 791.0 PROTEINURIA 08/25/2012 DASHA CELLULOID TRIMMER, HARLEEN T 791.0 PROTEINURIA 08/25/2012 ARIAN US PSYD ANN L 791.0 PROTEINURIA 08/25/2012 ARIAN US PSYD L 791.0 PROTEINURIA 08/25/2012 LOUISE COBOS MD 791.0 PROTEINURIA 08/25/2012 JERMAINE FERRER APRN 791.0 PROTEINURIA 08/25/2012 ARIAN US PSYD L 791.0 PROTEINURIA 08/25/2012 ARIAN US PSYD L 791.0 PROTEINURIA 08/25/2012 ARIAN US PSYD ANN L 791.0 PROTEINURIA 08/25/2012 AISLINN CELLULOID TRIMMER, BEVERLY S 791.0 PROTEINURIA 08/25/2012 ARIAN US PSYD ANN L 791.0 PROTEINURIA 08/25/2012 WILLARD DO, LUCIANO K 791.0 PROTEINURIA 08/25/2012 HUERTER MD, LOUISE 791.0 PROTEINURIA 08/25/2012 ARIAN US PSYD ANN L 791.0 PROTEINURIA 08/25/2012 AISLINN CELLULOID TRIMMER, BEVERLY S 791.0 PROTEINURIA 08/25/2012 ARIAN US PSYD ANN L 791.0 PROTEINURIA 08/25/2012 ARIAN US PSYD ANN L 791.0 PROTEINURIA 08/25/2012 AISLINN CELLULOID TRIMMER, BEVERLY S 791.0 PROTEINURIA 08/25/2012 ARIAN US PSYD ANN L 791.0 PROTEINURIA 08/25/2012 NELSON CELLULOID TRIMMER, JAVAD 791.0 PROTEINURIA 08/25/2012 AISLINN CELLULOID TRIMMER, BEVERLY S 791.0 PROTEINURIA 08/25/2012 NELSON CELLULOID TRIMMER, JAVAD 791.0 PROTEINURIA 08/25/2012 ARIAN US PSYD ANN L 791.0 PROTEINURIA 08/25/2012 ARIAN US PSYD ANN L 791.0 PROTEINURIA 08/25/2012 ARIAN US PSYD ANN L 791.0 PROTEINURIA 08/25/2012 AISLINN CELLULOID TRIMMER, BEVERLY S 791.0 PROTEINURIA 08/25/2012 ROXANNA CELLULOID TRIMMER, CATALINA A 791.0 PROTEINURIA 08/25/2012 NELSON CELLULOID TRIMMER, JAVAD 791.0 PROTEINURIA 08/25/2012 ARIAN US PSYD ANN L 791.0 PROTEINURIA 08/25/2012 ARIAN US PSYD ANN L 791.0 PROTEINURIA 08/25/2012 AISLINN CELLULOID TRIMMER, BEVERLY S 791.0 PROTEINURIA 08/25/2012 ARIAN US PSYD ANN L 791.0 PROTEINURIA 08/25/2012 ARIAN US PSYD ANN L 791.0 PROTEINURIA 08/25/2012 ROXANNA CELLULOID TRIMMER, CATALINA A 791.0 PROTEINURIA 08/25/2012 ARIAN US [...] 10/03/2012 626.4 IRREGULAR MENSTRUAL CYCLE 10/03/2012 ARIAN SU [...] COBOS MD 626.4 IRREGULAR MENSTRUAL CYCLE 10/03/2012 JERMANIE FERRER APRN 626.4 IRREGULAR MENSTRUAL CYCLE 10/03/2012 ARIAN US PSYD 626.4 IRREGULAR MENSTRUAL CYCLE 10/03/2012 ARIAN US PSYD L 626.4 IRREGULAR MENSTRUAL CYCLE 10/03/2012 ARIAN US PSYD L 626.4 IRREGULAR MENSTRUAL CYCLE 10/03/2012 AISLINN OCONNOR BEVERLY S 626.4 IRREGULAR MENSTRUAL CYCLE 10/03/2012 ARIAN US PSYD L 626.4 IRREGULAR MENSTRUAL CYCLE 10/03/2012 LCUIANO WILLARD DO 626.4 IRREGULAR MENSTRUAL CYCLE 10/03/2012 LOUISE COBOS MD 626.4 IRREGULAR MENSTRUAL CYCLE 10/03/2012 ARIAN US PSYD L 626.4 IRREGULAR MENSTRUAL CYCLE 10/03/2012 AISLINN OCONNRO BEVERLY S 626.4 IRREGULAR MENSTRUAL CYCLE 10/03/2012 [...] V76.10 BREAST CANCER SCREENING 10/10/2012 ROXANNA OCONNOR CATLAINA A V76.2 CERVICAL CANCER SCREENING (PAP SMEAR) [...] APRN V76.10 BREAST CANCER SCREENING 10/10/2012 JERMAINE EFRRER APRN V76.2 CERVICAL CANCER SCREENING (PAP SMEAR) [...] US PSYD L V73.81 HPV SCREENING 10/10/2012 AIRAN US PSYD L V76.10 BREAST CANCER SCREENING [...] TAO APRN S 278.00 OBESITY 10/10/2012 CLAUDE TOA APRNNDA S V73.81 HPV SCREENING 10/10/2012 CLAUDE [...] OCONNOR BEVERLY S 278.00 OBESITY 10/10/2012 AISLINN CELLULOID TRIMMER, BEVERLY S V73.81 HPV SCREENING 10/10/2012 AISLINN OCONNOR BEVERLY S V76.10 BREAST CANCER SCREENING 10/10/2012 AISLINN OCONNOR BEVERLY S V76.2 CERVICAL CANCER SCREENING (PAP SMEAR) 10/10/2012 ARIAN US PSYD L 278.00 OBESITY 10/10/2012 ARIAN US PSYD L V73.81 HPV SCREENING 10/10/2012 ARIAN US PSYD L V76.10 BREAST CANCER SCREENING 10/10/2012 ARIAN US PSYD ANN L V76.2 CERVICAL CANCER SCREENING (PAP SMEAR) 10/10/2012 NELSON CELLULOID TRIMMER, JAVAD 278.00 OBESITY 10/10/2012 NELSON CELLULOID TRIMMER, JAVAD V73.81 HPV SCREENING 10/10/2012 NELSON CELLULOID TRIMMER, JAVAD V76.10 BREAST CANCER SCREENING 10/10/2012 NELSON CELLULOID TRIMMER, JAVAD V76.2 CERVICAL CANCER SCREENING (PAP SMEAR) 10/10/2012 AISLINN CELLULOID TRIMMER, BEVERLY S 278.00 OBESITY 10/10/2012 AISLINN OCONNOR, BEVERLY S V73.81 HPV SCREENING 10/10/2012 AISLINN OCONNOR BEVERLY S V76.10 BREAST CANCER SCREENING 10/10/2012 AISLINN OCONNOR BEVERLY S V76.2 CERVICAL CANCER SCREENING (PAP SMEAR) 10/10/2012 NELSON CELLULOID TRIMMER, JAVAD 278.00 OBESITY 10/10/2012 NELSON CELLULOID TRIMMER, JAVAD V73.81 HPV SCREENING 10/10/2012 NELSON CELLULOID TRIMMER, JAVAD V76.10 BREAST CANCER SCREENING 10/10/2012 NELSON CELLULOID TRIMMER, JAVAD V76.2 CERVICAL CANCER SCREENING (PAP SMEAR) [...] CERVICAL CANCER SCREENING (PAP SMEAR) 10/10/2012 NELSON CELLULOID TRIMMER, JAVAD 278.00 OBESITY 10/10/2012 NELSON CELLULOID TRIMMER, JAVAD V73.81 HPV SCREENING 10/10/2012 NELSON CELLULOID TRIMMER, JAVAD V76.10 BREAST CANCER SCREENING 10/10/2012 NELSON CELLULOID TRIMMER, JAVAD V76.2 CERVICAL CANCER SCREENING (PAP SMEAR) [...] CATALINA A 706.2 SEBACEOUS CYST 03/28/2013 NELSON CELLULOID TRIMMER, JAVAD 706.2 SEBACEOUS CYST 03/28/2013 ARIAN US [...] DAMON APRN V58.32 SUTURE REMOVAL 05/03/2013 AISLINN CELLULOID TRIMMER, BEVERLY S V58.32 SUTURE REMOVAL 05/03/2013 NELSON CELLULOID TRIMMER, JAVAD V58.32 SUTURE REMOVAL 05/03/2013 ARIAN US PSYD ANN L V58.32 SUTURE REMOVAL 05/03/2013 ARIAN US PSYD ANN L V58.32 SUTURE REMOVAL 05/03/2013 ABEBA GARZA, DAISHA L V58.32 SUTURE REMOVAL 05/03/2013 AISLINN CELLULOID TRIMMER, BEVERLY S V58.32 SUTURE REMOVAL 05/03/2013 ROXANNA CELLULOID TRIMMER, CATALINA A V58.32 SUTURE REMOVAL 05/03/2013 NELSON CELLULOID TRIMMER, JAVAD V58.32 SUTURE REMOVAL 05/03/2013 ARIAN US PSYD ANN L V58.32 SUTURE REMOVAL 05/03/2013 ARIAN US PSYD ANN L V58.32 SUTURE REMOVAL 05/03/2013 AISLINN CELLULOID TRIMMER, BEVERLY S V58.32 SUTURE REMOVAL 05/03/2013 ARIAN US PSYD ANN L V58.32 SUTURE REMOVAL 05/03/2013 ARIAN US PSYD ANN L V58.32 SUTURE REMOVAL 05/03/2013 ROXANNA CELLULOID TRIMMER, CATALINA A V58.32 SUTURE REMOVAL 05/03/2013 ARIAN [...] L 789.07 ABDOMINAL PAIN GENERALIZED 06/05/2013 AISLINN CELLULOID TRIMMER, BEVERLY S 250.00 DIABETES II CONTROLLED (UNCOMPLICATED) 06/05/2013 AISLINN CELLULOID TRIMMER, BEVERLY S 784.0 HEADACHE 06/05/2013 AISLINN CELLULOID TRIMMER, BEVERLY S 789.07 ABDOMINAL PAIN GENERALIZED 06/05/2013 [...] L 789.07 ABDOMINAL PAIN GENERALIZED 06/05/2013 AISLINN CELLULOID TRIMMER, BEVERLY S 250.00 DIABETES II CONTROLLED (UNCOMPLICATED) 06/05/2013 AISLINN CELLULOID TRIMMER, BEVERLY S 784.0 HEADACHE 06/05/2013 AISLINN CELLULOID TRIMMER, BEVERLY S 789.07 ABDOMINAL PAIN GENERALIZED 06/05/2013 [...] L 789.07 ABDOMINAL PAIN GENERALIZED 06/05/2013 AISLINN CELLULOID TRIMMER, BEVERLY S 250.00 DIABETES II CONTROLLED (UNCOMPLICATED) 06/05/2013 AISLINN CELLULOID TRIMMER, BEVERLY S 784.0 HEADACHE 06/05/2013 AISLINN CELLULOID TRIMMER, BEVERLY S 789.07 ABDOMINAL PAIN GENERALIZED 06/05/2013 ARIAN US PSYD ANN L 250.00 DIABETES II CONTROLLED (UNCOMPLICATED) 06/05/2013 ARIAN US PSYD ANN L 784.0 HEADACHE 06/05/2013 ARIAN US PSYD ANN L 789.07 ABDOMINAL PAIN GENERALIZED 06/05/2013 NELSON CELLULOID TRIMMER, JAVAD 250.00 DIABETES II CONTROLLED (UNCOMPLICATED) 06/05/2013 NELSON CELLULOID TRIMMER, JAVAD 784.0 HEADACHE 06/05/2013 NELSON CELLULOID TRIMMER, JAVAD 789.07 ABDOMINAL PAIN GENERALIZED 06/05/2013 AISLINN CELLULOID TRIMMER, BEVERLY S 250.00 DIABETES II CONTROLLED (UNCOMPLICATED) 06/05/2013 AISLINN CELLULOID TRIMMER, BEVERLY S 784.0 HEADACHE 06/05/2013 AISLINN CELLULOID TRIMMER, BEVERLY S 789.07 ABDOMINAL PAIN GENERALIZED 06/05/2013 NELSON CELLULOID TRIMMER, JAVAD 250.00 DIABETES II CONTROLLED (UNCOMPLICATED) 06/05/2013 NELSON CELLULOID TRIMMER, JAVAD 784.0 HEADACHE 06/05/2013 NELSON CELLULOID TRIMMER, JAVAD 789.07 ABDOMINAL PAIN GENERALIZED 06/05/2013 ARIAN [...] L 789.07 ABDOMINAL PAIN GENERALIZED 06/05/2013 AISLINN CELLULOID TRIMMER, BEVERLY S 250.00 DIABETES II CONTROLLED (UNCOMPLICATED) 06/05/2013 AISLINN CELLULOID TRIMMER, BEVERLY S 784.0 HEADACHE 06/05/2013 AISLINN CELLULOID TRIMMER, BEVERLY S 789.07 ABDOMINAL PAIN GENERALIZED 06/05/2013 ROXANNA CELLULOID TRIMMER, CATALINA A 250.00 DIABETES II CONTROLLED (UNCOMPLICATED) 06/05/2013 ROXANNA CELLULOID TRIMMER, CATALINA A 784.0 HEADACHE 06/05/2013 ROXANNA CELLULOID TRIMMER, CATALINA A 789.07 ABDOMINAL PAIN GENERALIZED 06/05/2013 NELSON CELLULOID TRIMMER, JAVAD 250.00 DIABETES II CONTROLLED (UNCOMPLICATED) 06/05/2013 NELSON CELLULOID TRIMMER, JAVAD 784.0 HEADACHE 06/05/2013 NELSON CELLULOID TRIMMER, JAVAD 789.07 ABDOMINAL PAIN GENERALIZED 06/05/2013 ARIAN [...] ANN L 454.8 VARICOSE VEINS 06/21/2013 AISLINN CELLULOID TRIMMER, BEVERLY S 454.8 VARICOSE VEINS 06/21/2013 ARIAN [...] ANN L 454.8 VARICOSE VEINS 06/21/2013 NELSON CELLULOID TRIMMER, JAVAD 454.8 VARICOSE VEINS 06/21/2013 AISLINN RUIZN, BEVERLY S 454.8 VARICOSE VEINS 06/21/2013 NELSON CELLULOID TRIMMER, JAVAD 454.8 VARICOSE VEINS 06/21/2013 ARIAN US PSYD ANN L 454.8 VARICOSE VEINS 06/21/2013 ARIAN US PSYD ANN L 454.8 VARICOSE VEINS 06/21/2013 ARIAN US PSYD ANN L 454.8 VARICOSE VEINS 06/21/2013 AISLINN RUIZN, BEVERLY S 454.8 VARICOSE VEINS 06/21/2013 JASMIN MCKNIGHT APRNIDI A 454.8 VARICOSE VEINS 06/21/2013 NELSON CELLULOID TRIMMER, JAVAD 454.8 VARICOSE VEINS 06/21/2013 ARIAN US PSYD ANN L 454.8 VARICOSE VEINS 06/21/2013 ARIAN US PSYD ANN L 454.8 VARICOSE VEINS 06/21/2013 AISLINN CELLULOID TRIMMER, BEVERLY S 454.8 VARICOSE VEINS 06/21/2013 ARIAN US PSYD ANN L 454.8 VARICOSE VEINS 06/21/2013 ARIAN US PSYD ANN L 454.8 VARICOSE VEINS 06/21/2013 CATALINA MCKNIGHT APRN A 454.8 VARICOSE VEINS 06/21/2013 ARIAN US PSYD ANN L 454.8 VARICOSE VEINS 06/21/2013 ARIAN US PSYD ANN L 454.8 VARICOSE VEINS 06/21/2013 ARIAN US PSYD ANN L 454.8 VARICOSE VEINS 07/12/2013 SOCO JOAQUIN CELLULOID TRIMMER Ot 724.4 07/12/2013 SOCO JOAQUIN CELLULOID TRIMMER Ot 729.5 07/12/2013 SOCO JOAQUIN CELLULOID TRIMMER Ot 729.81 07/17/2013 AISLINN OCONNOR BEVERLY S [...] BEVERLY S 729.5 PAIN- LEG 07/17/2013 NELSON CELLULOID TRIMMER, JAVAD 729.5 PAIN- LEG 07/17/2013 ARIAN US PSYD ANN L 729.5 PAIN- LEG 07/17/2013 ARIAN US PSYD ANN L 729.5 PAIN- LEG 07/17/2013 ARIAN US PSYD ANN L 729.5 PAIN- LEG 07/17/2013 AISLINN OCONNOR BEVERLY S 729.5 PAIN- LEG 07/17/2013 ROXANNA CELLULOID TRIMMER, CATALINA A 729.5 PAIN- LEG 07/17/2013 NELSON CELLULOID TRIMMER, JAVAD 729.5 PAIN- LEG 07/17/2013 ABEBA GARZA, [...] DAISHA L 786.50 CHEST PAIN 09/11/2013 NELSON CELLULOID TRIMMER, JAVAD 786.50 CHEST PAIN 09/11/2013 AISLINN OCONNOR BEVERLY S 786.50 CHEST PAIN 09/11/2013 NELSON CELLULOID TRIMMER, JAVAD 786.50 CHEST PAIN 09/11/2013 ABEBA GARZA, [...] UNSPECIFIED SITE WITHOUT MYELOPATHY 10/28/2013 SOCO JOAQUIN CELLULOID TRIMMER Ot 724.4 10/28/2013 SOCO JOAQUIN CELLULOID TRIMMER Ot 729.5 11/30/2013 BEVERLY TAO APRN S [...] CATALINA A V04.81 FLU SHOT 02/12/2014 NELSON CELLULOID TRIMMER, JAVAD 626.4 IRREGULAR MENSTRUAL CYCLE 02/12/2014 NELSON CELLULOID TRIMMER, JAVAD V04.81 FLU SHOT 02/12/2014 ARIAN US [...] LUMBOSACRAL NEURITIS OR RADICULITIS UNSPECIFIED 03/20/2014 ARIAN SU PSYD ANN L 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 03/20/2014 ARIAN US PSYD ANN L 276.8 HYPOPOTASSEMIA 03/20/2014 ARIAN US PSYD ANN L 724.4 THORACIC OR LUMBOSACRAL NEURITIS OR RADICULITIS UNSPECIFIED 04/16/2014 Ot 611.71 04/16/2014 DERRELL MEAD TMH TEACHER Ot 454.9 04/16/2014 DERRELL MEAD TMH TEACHER Ot 729.5 04/16/2014 DERRELL MEAD TMH TEACHER Ot 823.80 04/16/2014 DERRELL MEAD TMH TEACHER Ot E928.9 04/16/2014 BEVERLY TAO TMH TEACHER Ot 719.45 04/16/2014 BEVERLY TAO TMH TEACHER Ot 722.10 04/16/2014 BEVERLY TAO TMH TEACHER Ot 786.50 04/16/2014 ZEHRA SINHA MD Ot [...] 789.07 04/30/2014 Ot 611.71 04/30/2014 CHONG HORTON TMH TEACHER Ot 611.71 04/30/2014 ZEHRA SINHA MD Ot [...] SCREENING 05/07/2014 Ot 611.71 05/07/2014 DERRELL MEAD TMH TEACHER Ot 454.9 05/07/2014 DERRELL MEAD TMH TEACHER Ot 729.5 05/07/2014 DERRELL MEAD TMH TEACHER Ot 823.80 05/07/2014 DERRELL MEAD TMH TEACHER Ot E928.9 05/07/2014 BEVERLY TAO TMH TEACHER Ot 719.45 05/07/2014 BEVERLY TAO TMH TEACHER Ot 722.10 05/07/2014 BEVERLY TAO TMH TEACHER Ot 786.50 05/07/2014 ZEHRA SINHA MD Ot [...] 789.07 05/14/2014 Ot 611.71 05/14/2014 CHONG HORTON TMH TEACHER Ot 611.71 05/14/2014 ZEHRA SINHA MD Ot [...] V85.35 05/14/2014 Ot 611.71 05/14/2014 DERRELL MEAD TMH TEACHER Ot 454.9 05/14/2014 DERRELL MEAD TMH TEACHER Ot 729.5 05/14/2014 DERRELL MEAD TMH TEACHER Ot 823.80 05/14/2014 DERRELL MEAD TMH TEACHER Ot E928.9 05/14/2014 BEVERLY TAO TMH TEACHER Ot 719.45 05/14/2014 BEVERLY TAO TMH TEACHER Ot 722.10 05/14/2014 BEVERLY TAO TMH TEACHER Ot 786.50 05/14/2014 ZEHRA SINHA MD Ot 278.00 05/14/2014 ZEHRA SINHA MD Ot 722.52 05/14/2014 ZEHRA SINHA MD Ot V58.69 05/14/2014 ZEHRA SINHA MD Ot V85.34 05/14/2014 ZEHRA SINHA MD Ot 278.00 05/14/2014 ZEHRA SINHA MD Ot 722.52 05/14/2014 ZEHRA SINHA MD Ot V58.67 05/14/2014 ZEHRA SINHA MD Ot V58.69 05/14/2014 ZEHRA SINHA MD Ot V85.35 05/15/2014 Ot 611.71 05/15/2014 DERRELL MEAD TMH TEACHER Ot 454.9 05/15/2014 DERRELL MEAD TMH TEACHER Ot 729.5 05/15/2014 DERRELL MEAD TMH TEACHER Ot 823.80 05/15/2014 DERRELL MEAD TMH TEACHER Ot E928.9 05/15/2014 BEVERLY TAO TMH TEACHER Ot 719.45 05/15/2014 BEVERLY TAO TMH TEACHER Ot 722.10 05/15/2014 BEVERLY TAO TMH TEACHER Ot 786.50 05/15/2014 ZEHRA SINHA MD Ot [...] MCKNIGHT APRN Ot V76.12 07/18/2014 CATALINA MCKNIGHT CELLULOID TRIMMER Ot V76.12 07/18/2014 Ot 787.01 07/18/2014 Ot 787.91 07/18/2014 Ot 789.1 07/18/2014 Ot 787.01 07/18/2014 Ot 789.07 07/18/2014 Ot 611.71 07/18/2014 CHONG HORTON TMH TEACHER Ot 611.71 07/18/2014 CATALINA MCKNIGHT CELLULOID TRIMMER Ot V76.12 08/15/2014 CATALINA MCKNIGHT APRN Ot [...] DELMA R Ot V57.1 08/28/2014 CATALINA MCKNIGHT CELLULOID TRIMMER Ot V76.12 08/29/2014 SWEET PA, DELMA R [...] DERMATITIS, UNSPECIF 06/06/2015 ANGIE KIRKPATRICK Ot Z79.4 MAIL INSERTER (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 OF INSULIN 06/06/2015 ZEHRA SINHA [...] 08/21/2015 Ot 611.71 MASTODYNIA 08/21/2015 CHONG HORTON TMH TEACHER Ot 611.71 MASTODYNIA 08/21/2015 Ot 787.01 NAUSEA WITH VOMITING 08/21/2015 Ot 787.91 DIARRHEA 08/21/2015 Ot 789.1 HEPATOMEGALY 08/21/2015 Ot 787.01 NAUSEA WITH VOMITING 08/21/2015 Ot 789.07 ABDOMINAL PAIN, GENERALIZED 08/21/2015 Ot 611.71 MASTODYNIA 08/21/2015 CHONG HORTON TMH TEACHER Ot 611.71 MASTODYNIA 08/23/2015 ZEHRA SINHA MD Ot M51.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 DISC DISORDERS W RADICULO 08/23/2015 ZEHRA SINHA MD Ot Z79.899 OTHER RETIREMENT (CURRENT) DRUG THERAPY 09/05/2015 ZEHRA SINHA MD, Ot M51.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 DISC DISORDERS W RADICULO 09/05/2015 ZEHRA SINHA MD, Ot Z79.899 OTHER MAIL INSERTER (CURRENT) DRUG THERAPY 09/11/2015 ANGIE KIRKPATRICK Ot E11.9 TYPE 2 DIABETES MELLITUS WITHOUT COMPLIC 09/11/2015 ANGIE KIRKPATRICK Ot L25.9 UNSPECIFIED CONTACT DERMATITIS, UNSPECIF 09/11/2015 ANGIE KIRKPATRICK Ot Z79.4 MAIL INSERTER (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 OF INSULIN 09/11/2015 ZEHRA SINHA MD, Ot M51.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 DISC DISORDERS W RADICULO 09/11/2015 ZEHRA SINHA MD, Ot Z79.899 OTHER MAIL INSERTER (CURRENT) DRUG THERAPY 11/12/2015 ANGIE KIRKPATRICK Ot [...] PAIN IN LEFT LEG 2016 SOCO JOAQUIN CELLULOID TRIMMER Ot R20.2 PARESTHESIA OF SKIN 2016 SOCO JOAQUIN CELLULOID TRIMMER Ot Z79.4 RETIREMENT (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 OF INSULIN 2016 SOCO JOAQUIN CELLULOID TRIMMER Ot Z79.82 MAIL INSERTER (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 OF ASPIRIN 2016 SOCO JOAQUIN CELLULOID TRIMMER Ot Z79.899 OTHER MAIL INSERTER (CURRENT) DRUG THERAPY 03/05/2016 SOCO JOAQUIN CELLULOID TRIMMER Ot E11.9 TYPE 2 DIABETES MELLITUS WITHOUT COMPLIC 03/05/2016 SOCO JOAQUIN CELLULOID TRIMMER Ot I10 ESSENTIAL (PRIMARY) HYPERTENSION 03/05/2016 SOCO JOAQUIN CELLULOID TRIMMER Ot M25.552 PAIN IN LEFT HIP 03/05/2016 SOCO JOAQUIN CELLULOID TRIMMER Ot M54.5 LOW BACK PAIN 03/05/2016 SOCO JOAQUIN CELLULOID TRIMMER Ot M79.605 PAIN IN LEFT LEG 03/05/2016 SOCO JOAQUIN CELLULOID TRIMMER Ot R20.2 PARESTHESIA OF SKIN 03/05/2016 SOCO JOAQUIN CELLULOID TRIMMER Ot Z79.4 RETIREMENT (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 OF INSULIN 03/05/2016 SOCO JOAQUIN CELLULOID TRIMMER Ot Z79.82 MAIL INSERTER (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 OF ASPIRIN 03/05/2016 SOCO JOAQUIN CELLULOID TRIMMER Ot Z79.899 OTHER MAIL INSERTER (CURRENT) DRUG THERAPY 03/10/2016 SOCO JOAQUIN CELLULOID TRIMMER Ot E11.9 TYPE 2 DIABETES MELLITUS WITHOUT COMPLIC 03/10/2016 SOCO JOAQUIN CELLULOID TRIMMER Ot I10 ESSENTIAL (PRIMARY) HYPERTENSION 03/10/2016 SOCO JOAQUIN CELLULOID TRIMMER Ot M25.552 PAIN IN LEFT HIP 03/10/2016 SOCO JOAQUIN CELLULOID TRIMMER Ot M54.5 LOW BACK PAIN 03/10/2016 SOCO JOAQUIN CELLULOID TRIMMER Ot M79.605 PAIN IN LEFT LEG 03/10/2016 SOCO JOAQUIN CELLULOID TRIMMER Ot R20.2 PARESTHESIA OF SKIN 03/10/2016 SOCO JOAQUIN CELLULOID TRIMMER Ot Z79.4 RETIREMENT (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 OF INSULIN 03/10/2016 SOCO JOAQUIN CELLULOID TRIMMER Ot Z79.82 MAIL INSERTER (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 OF ASPIRIN 03/10/2016 SOCO JOAQUIN CELLULOID TRIMMER Ot Z79.899 OTHER RETIREMENT (CURRENT) DRUG THERAPY [...] 03/18/2016 Ot 611.71 MASTODYNIA 03/18/2016 CHONG HORTON TMH TEACHER Ot 611.71 MASTODYNIA 03/19/2016 ANGIE KIRKPATRICK Ot G89.29 OTHER CHRONIC PAIN 03/19/2016 ANGIE KIRKPATRICK Ot M54.5 LOW BACK PAIN 03/20/2016 Ot 787.01 NAUSEA WITH VOMITING 03/20/2016 Ot 787.91 DIARRHEA 03/20/2016 Ot 789.1 HEPATOMEGALY 03/20/2016 Ot 787.01 NAUSEA WITH VOMITING 03/20/2016 Ot 789.07 ABDOMINAL PAIN, GENERALIZED 03/20/2016 Ot 611.71 MASTODYNIA 03/20/2016 CHONG HORTON TMH TEACHER Ot 611.71 MASTODYNIA 03/20/2016 ZEHRA SINHA MD [...] PAIN 06/02/2016 SOCO JOAQUIN APRN Ot Z79.4 MAIL INSERTER (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 OF INSULIN 06/02/2016 SOCO JOAQUIN APRN Ot Z79.82 MAIL INSERTER (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 OF ASPIRIN 06/02/2016 SOCO JOAQUIN [...] PAIN 06/04/2016 SOCO JOAQUIN APRN Ot Z79.4 MAIL INSERTER (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 OF INSULIN 06/04/2016 SOCO JOAQUIN APRN Ot Z79.82 RETIREMENT (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 OF ASPIRIN 06/04/2016 SOCO JOAQUIN APRN Ot Z79.84 RETIREMENT (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 OF ORAL HYPOGLYC 06/04/2016 SOCO JOAQUIN APRN Ot Z79.899 OTHER MAIL INSERTER (CURRENT) DRUG THERAPY 06/22/2016 ZEHRA SINHA MD, [...] 08/14/2016 SOCO JOAQUIN APRN Ot Z79.899 OTHER MAIL INSERTER (CURRENT) DRUG THERAPY 09/03/2016 Ot 787.01 NAUSEA WITH VOMITING 09/03/2016 Ot 787.91 DIARRHEA 09/03/2016 Ot 789.1 HEPATOMEGALY 09/03/2016 Ot 787.01 NAUSEA WITH VOMITING 09/03/2016 Ot 789.07 ABDOMINAL PAIN, GENERALIZED 09/03/2016 Ot 611.71 MASTODYNIA 09/03/2016 CHONG HORTON TMH TEACHER Ot 611.71 MASTODYNIA 09/03/2016 ZEHRA SINHA MD Ot M54.5 LOW BACK PAIN 09/04/2016 Ot 787.01 NAUSEA WITH VOMITING 09/04/2016 Ot 787.91 DIARRHEA 09/04/2016 Ot 789.1 HEPATOMEGALY 09/04/2016 Ot 787.01 NAUSEA WITH VOMITING 09/04/2016 Ot 789.07 ABDOMINAL PAIN, GENERALIZED 09/04/2016 Ot 611.71 MASTODYNIA 09/04/2016 CHONG HORTON TMH TEACHER Ot 611.71 MASTODYNIA 09/04/2016 ZHERA SINHA MD Ot M54.5 LOW BACK PAIN [...] (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 OF ORAL HYPOGLYC 09/11/2016 JOAQUINSOCO CELLULOID TRIMMER Ot Z79.899 OTHER RETIREMENT (CURRENT) DRUG THERAPY [...] EAR 05/14/2017 DELMA PIMENTEL MD Ot Z79.4 MAIL INSERTER (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 OF INSULIN 05/14/2017 DELMA PIMENTEL MD Ot Z79.82 MAIL INSERTER (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 OF ASPIRIN 05/14/2017 DELMA PIMENTEL [...] Procedures Code Description [place] [address] A1C (IN-HOUSE) 01/07/2012 42960 ROUTINE VENIPUNCTURE 02/05/2012 37534 MICRO ALBUMIN-IN HOUSE 02/05/2012 00891 CMP 02/05/2012 [id number] GFR CALC (RESULT ONLY) 02/05/2012 06425 LIPID PANEL 02/05/2012 85661 MICROALBUMIN 02/06/2012 90440 INDIV PSYTX 45/50 MIN 02/08/2012 74798 GLUCOSE 02/15/2012 82104 INDIV PSYTX 45/50 MIN 02/15/2012 21117 INDIV PSYTX 45/50 MIN 02/29/2012 08922 INDIV PSYTX 45/50 MIN 03/14/2012 68929 US BREAST(S) ULTRASOUND, BOTH 04/06/2012 27228 INDIV PSYTX 45/50 MIN 04/07/2012 95515 PSYTX PT&/FAMILY 45 MINUTES 04/07/2012 66621 MAMMOGRAM DX, LARRY 04/11/2012 76286 MAMMOGRAM, SCREENING 04/11/2012 81966 PSYTX PT&/FAMILY 45 MINUTES 04/11/2012 72149 PSYTX PT&/FAMILY 45 MINUTES 05/02/2012 50542 PSYTX PT&/FAMILY 45 MINUTES 05/06/2012 90375 PSYTX PT&/FAMILY 45 MINUTES 05/20/2012 61855 A1C (IN-HOUSE) 05/30/2012 94631 PSYTX PT&/FAMILY 45 MINUTES 06/22/2012 74917 PSYTX PT&/FAMILY 45 MINUTES 07/20/2012 12210 GLUCOSE FINGER STICK 08/05/2012 28408 MICRO ALBUMIN-IN HOUSE 08/25/2012 37798 A1C (IN-HOUSE) 08/25/2012 74421 MICROALBUMIN 08/25/2012 11310 ROUTINE VENIPUNCTURE 08/26/2012 69746 CMP 08/26/2012 81153 LIPID PANEL 08/26/2012 [id number] GFR CALC (RESULT ONLY) 08/26/2012 81906 CBC 08/26/2012 14989 PSYTX PT&/FAMILY 45 MINUTES 09/06/2012 48315 PSYTX PT&/FAMILY 30 MINUTES 11/10/2012 74548 PSYTX PT&/FAMILY 45 MINUTES 11/10/2012 08405 OXIMETRY 12/07/2012 60861 PSYTX PT&/FAMILY 45 MINUTES 12/22/2012 43221 PSYTX PT&/FAMILY 45 MINUTES 01/05/2013 52721 A1C (IN-HOUSE) 01/09/2013 32477 PSYTX PT&/FAMILY 45 MINUTES 03/08/2013 12883 MAMMOGRAM, SCREENING 03/09/2013 07610 PSYTX PT&/FAMILY 45 MINUTES 04/25/2013 13047 EXCISION BENIGN LESION 0.6- 1 cm (spcify location in [facility] description) 04/26/2013 94682 PSYTX PT&/FAMILY 45 MINUTES 05/05/2013 29311 PSYTX PT&/FAMILY 45 MINUTES 05/19/2013 42867 ROUTINE VENIPUNCTURE 06/05/2013 65612 A1C (IN-HOUSE) 06/05/2013 65877 UA LONG DIP 06/05/2013 50647 MICRO ALBUMIN-IN HOUSE 06/05/2013 74779 CBC 06/05/2013 78542 CMP 06/05/2013 28481 LIPID PANEL 06/05/2013 54691 MICROALBUMIN 06/05/2013 2118261 GFR CALC (RESULT ONLY) 06/05/2013 17272 LIPASE 06/05/2013 91036 PSYTX PT&/FAMILY 30 MINUTES 06/21/2013 30524 PSYTX PT&/FAMILY 45 MINUTES 06/27/2013 11159 PSYTX PT&/FAMILY 45 MINUTES 07/11/2013 30249 XRAY LUMBAR SPINE 2 OR 3 VIEWS 07/17/2013 76658 XRAY HIP LEFT UNILATERAL MIN 2 VIEWS 07/17/2013 09376 XRAY TIBULA FIBULA LEFT 07/17/2013 ORTHOPEDI DERRELL MEAD 07/17/2013 05924 PSYTX PT&/FAMILY 45 MINUTES 08/02/2013 15559 MRI EXTREMITY, LOWER LEFT, W /O CONTRAST 08/17/2013 60072 PSYTX PT&/FAMILY 45 MINUTES 09/05/2013 25289 MRI SPINE (LUMBAR) W/O CONTRAST 09/11/2013 05219 A1C (IN-HOUSE) 09/11/2013 17236 PSYTX PT&/FAMILY 45 MINUTES 09/26/2013 78773 PSYTX PT&/FAMILY 45 MINUTES 10/09/2013 36319 PSYTX PT&/FAMILY 30 MINUTES 11/13/2013 74124 PSYTX PT&/FAMILY 30 MINUTES 12/21/2013 16311 PSYTX PT&/FAMILY 45 MINUTES 01/04/2014 27426 PSYTX PT&/FAMILY 45 MINUTES 02/01/2014 93339 A1C (IN-HOUSE) 02/12/2014 99605 MICRO ALBUMIN-IN HOUSE 02/12/2014 31029 TEST, URINE (IN- HOUSE) 02/12/2014 60040 MICROALBUMIN 02/13/2014 99924 ROUTINE VENIPUNCTURE 02/15/2014 58394 PSYTX PT&/FAMILY 45 MINUTES 02/15/2014 09371 LIPID PANEL 02/15/2014 20911 CBC 02/15/2014 46090 CMP 02/15/2014 1738751 GFR CALC (RESULT ONLY) 02/15/2014 92248 TSH 02/15/2014 38287 TEST, URINE (IN- HOUSE) 02/19/2014 49458 PSYTX PT&/FAMILY 45 MINUTES 03/08/2014 46459 PSYTX PT&/FAMILY 30 MINUTES 03/14/2014 91889 ROUTINE VENIPUNCTURE 03/20/2014 76545 CBC 03/20/2014 05426 MAGNESIUM 03/20/2014 71544 PSYTX PT&/FAMILY 45 MINUTES 04/10/2014 66591 PSYTX PT&/FAMILY 45 MINUTES 04/18/2014 91146 MAMMOGRAM, SCREENING 05/03/2014 88482 PSYTX PT&/FAMILY 30 MINUTES 05/08/2014 26576 A1C (IN-HOUSE) 06/26/2014 MARIO CARDONA 07/16/2014 53740 PSYTX PT&/FAMILY 30 MINUTES 07/16/2014 Results Test [...] culture - 06/02/16 11:55 Bacterial urine culture [id number] NRG COLONY COUNT <10,000 NRG FTX;REPORTABLE PLUS, [...] - 06/02/16 12:40 Lipase 41 U/L 8-78 Complete blood count (CBC) with automated white blood cell (WBC) differential - 06/11/17 13:45 Blood leukocytes automated count (number/volume) 12.1 10*3/uL 4.3-11.0 Blood erythrocytes automated count (number/volume) 5.29 10*6/uL 4.35-5.85 Venous blood hemoglobin measurement (mass/volume) 15.1 g/dL 11.5-16.0 Blood hematocrit (volume fraction) 43 % 35-52 Automated erythrocyte mean corpuscular volume 80 [foz_us] 80-99 Automated erythrocyte mean corpuscular hemoglobin (mass per erythrocyte) 29 pg 25-34 Automated erythrocyte mean corpuscular hemoglobin concentration measurement ( mass/volume) 36 g/dL 32-36 Automated erythrocyte distribution width ratio 13.0 % 10.0-14.5 Automated blood platelet count (count/volume) 279 10*3/uL 130-400 Automated blood platelet mean volume measurement 9.6 [foz_us] 7.4-10.4 Automated blood neutrophils/100 leukocytes 75 % 42-75 Automated blood lymphocytes/100 leukocytes 18 % 12-44 Blood monocytes/100 leukocytes 7 % 0-12 Automated blood eosinophils/100 leukocytes 0 % 0-10 Automated blood basophils/100 leukocytes 1 % 0-10 Blood neutrophils automated count (number/volume) 9.0 10*3 1.8-7.8 Blood lymphocytes automated count (number/volume) 2.2 10*3 1.0-4.0 Blood monocytes automated count (number/volume) 0.8 10*3 0.0-1.0 Automated eosinophil count 0.0 10*3/uL 0.0-0.3 Automated blood basophil count (count/volume) 0.1 10*3/uL 0.0-0.1 Comprehensive metabolic panel - 06/11/17 13:45 Serum or plasma sodium measurement (moles/volume) 137 mmol/L 135-145 Serum or plasma potassium measurement (moles/volume) 3.8 mmol/L 3.6-5.0 Serum or plasma chloride measurement (moles/volume) 102 mmol/L 98-107 Carbon dioxide 19 mmol/L 21-32 Serum or plasma anion gap determination (moles/volume) 16 mmol/L 5-14 Serum or plasma urea nitrogen measurement (mass/volume) 6 mg/dL 7-18 Serum or plasma creatinine measurement (mass/volume) 0.59 mg/dL 0.60-1.30 Serum or plasma urea nitrogen/creatinine mass ratio 10 NRG Serum or plasma creatinine measurement with calculation of estimated glomerular filtration rate > NRG Serum or plasma glucose measurement (mass/volume) 223 mg/dL 70-105 Serum or plasma calcium measurement (mass/volume) 9.6 mg/dL 8.5-10.1 Serum or plasma total bilirubin measurement (mass/volume) 0.8 mg/dL 0.1-1.0 Serum or plasma alkaline phosphatase measurement (enzymatic activity/volume) 84 U/L 40-136 Serum or plasma aspartate aminotransferase measurement (enzymatic activity/ volume) 17 U/L 5-34 Serum or plasma alanine aminotransferase measurement (enzymatic activity/volume ) 25 U/L 0-55 Serum or plasma protein measurement (mass/volume) 7.7 g/dL 6.4-8.2 Serum or plasma albumin measurement (mass/volume) 4.3 g/dL 3.2-4.5 Lipase - 06/11/17 13:45 Lipase 37 U/L 8-78 Serum or plasma C reactive protein measurement (mass/volume) - 06/11/17 13:45 Serum or plasma C reactive protein measurement (mass/volume) 2.06 mg /dL 0.00-0.50 Complete urinalysis with reflex to culture - 06/11/17 13:53 Urine color determination YELLOW NRG Urine clarity determination VERY CLOUDY NRG Urine pH measurement by test strip 8 5-9 Specific gravity of urine by test strip 1.010 1.016- 1.022 Urine protein assay by test strip, semi-quantitative 3+ NEGATIVE Urine glucose detection by automated test strip 4+ NEGATIVE Erythrocytes detection in urine sediment by light microscopy 2+ NEGATIVE Urine ketones detection by automated test strip 4+ NEGATIVE Urine nitrite detection by test strip NEGATIVE NEGATIVE Urine total bilirubin detection by test strip NEGATIVE NEGATIVE Urine urobilinogen measurement by automated test strip (mass/volume) NORMAL NORMAL Urine leukocyte esterase detection by dipstick 3+ NEGATIVE Automated urine sediment erythrocyte count by microscopy (number/high power field) [HPF] NRG Automated urine sediment leukocyte count by microscopy (number/high power field ) > [HPF] NRG Bacteria detection in urine sediment by light microscopy LARGE NRG Squamous epithelial cells detection in urine sediment by light microscopy 10-25 NRG Crystals detection in urine sediment by light microscopy NONE NRG Casts detection in urine sediment by light microscopy NONE NRG Mucus detection in urine sediment by light microscopy NEGATIVE NRG Complete urinalysis with reflex to culture YES NRG Blood lactic acid measurement (moles/volume) - 06/11/17 14:24 Blood lactic acid measurement (moles/volume) 1.88 mmol/L 0.50-2.00 Encounters ACCT No. Visit Date/Time Discharge Status Pt. Type Provider Facility Loc./Unit Complaint [id number] 07/16/2014 12:51:00 07/16/2014 23:59:59 CLS Outpatient ARIAN US PSYD [id number] 06/05/2014 10:16:00 06/05/2014 23:59:59 CLS Outpatient ARIAN US PSYD [id number] 05/08/2014 10:38:00 05/08/2014 23:59:59 CLS Outpatient ARIAN US PSYD [id number] 05/03/2014 15:40:00 05/03/2014 23:59:59 CLS Outpatient CATALINA MCKNIGHT APRN [id number] 04/18/2014 08:38:00 04/18/2014 23:59:59 CLS Outpatient ARIAN US PSYD [id number] 04/10/2014 10:26:00 04/10/2014 23:59:59 CLS Outpatient ARIAN US PSYD L [id number] 03/20/2014 14:34:00 03/20/2014 23:59:59 CLS Outpatient BEVERLY TAO APRN [id number] 03/14/2014 16:06:00 03/14/2014 23:59:59 CLS Outpatient CLINTONLEEARY ARIAN GARZA [id number] 03/08/2014 08:16:00 03/08/2014 23:59:59 CLS Outpatient ARIAN US PSYD [id number] 02/20/2014 12:44:00 02/20/2014 23:59:59 CLS Outpatient NELSON JAVAD OCONNOR [id number] 02/19/2014 15:05:00 02/19/2014 23:59:59 CLS Outpatient ROXANNA ANASTASIACATALINA Shahram [id number] 02/15/2014 08:52:00 02/15/2014 23:59:59 CLS Outpatient AISLINN ANASTASIACLAUDEBEVERLY S [id number] 02/01/2014 13:41:00 02/01/2014 23:59:59 CLS Outpatient ARIAN US PSYD [id number] 01/04/2014 10:49:00 01/04/2014 23:59:59 CLS Outpatient ARIAN US PSYD [id number] 12/21/2013 10:30:00 12/21/2013 23:59:59 CLS Outpatient ARIAN US PSYD [id number] 11/30/2013 17:09:00 11/30/2013 23:59:59 CLS Outpatient AISLINN ANASTASIACLAUDEBEVERLY S [id number] 11/21/2013 12:44:00 11/21/2013 23:59:59 CLS Outpatient JAVAD DAMON APRN [id number] 11/21/2013 12:44:00 11/21/2013 23:59:59 CLS Outpatient JAVAD DAMON APRN [id number] 11/13/2013 12:34:00 11/13/2013 23:59:59 CLS Outpatient ARIAN US PSYD [id number] 10/26/2013 12:58:00 10/26/2013 23:59:59 CLS Outpatient AISLINN ANASTASIACLAUDEBEVERLY S [id number] 10/09/2013 12:45:00 10/09/2013 23:59:59 CLS Outpatient ARIAN US PSYD [id number] 09/25/2013 13:15:00 09/25/2013 23:59:59 CLS Outpatient ARIAN US PSYD [id number] 09/11/2013 12:15:00 09/11/2013 23:59:59 CLS Outpatient BEVERLY TAO APRN [id number] 09/04/2013 12:39:00 09/04/2013 23:59:59 CLS Outpatient ARIAN US PSYD [id number] 08/22/2013 14:36:00 08/22/2013 23:59:59 CLS Outpatient LOUISE COBOS MD [id number] 08/17/2013 15:36:00 08/17/2013 23:59:59 CLS Outpatient LUCIANO WILLARD DO [id number] 08/01/2013 13:44:00 08/01/2013 23:59:59 CLS Outpatient ARIAN US PSYD [id number] 07/17/2013 10:27:00 07/17/2013 23:59:59 CLS Outpatient BEVERLY TAO APRN [id number] 07/11/2013 13:05:00 07/11/2013 23:59:59 CLS Outpatient ARIAN US PSYD [id number] 06/27/2013 13:07:00 06/27/2013 23:59:59 CLS Outpatient ARIAN US PSYD [id number] 06/21/2013 16:35:00 06/21/2013 23:59:59 CLS Outpatient ARIAN US PSYD [id number] 06/06/2013 12:44:00 06/06/2013 23:59:59 CLS Outpatient JERMAINE FERRER APRN [id number] 06/05/2013 08:29:00 06/05/2013 23:59:59 CLS Outpatient LOUISE COBOS MD [id number] 05/19/2013 12:44:00 05/19/2013 23:59:59 CLS Outpatient ARIAN US PSYD [id number] 05/05/2013 12:45:00 05/05/2013 23:59:59 CLS Outpatient ARIAN US PSYD [id number] 05/03/2013 14:18:00 05/03/2013 23:59:59 CLS Outpatient HARLEEN LOU APRN [id number] 04/25/2013 15:33:00 04/25/2013 23:59:59 CLS Outpatient HARLEEN LOU APRN [id number] 04/21/2013 12:55:00 04/21/2013 23:59:59 CLS Outpatient ARIAN US PSYD [id number] 03/28/2013 15:28:00 03/28/2013 23:59:59 CLS Outpatient BEVERLY TAO APRN [id number] 03/09/2013 15:35:00 03/09/2013 23:59:59 CLS Outpatient CATALINA MCKNIGHT APRN [id number] 03/06/2013 13:00:00 03/06/2013 23:59:59 CLS Outpatient ARIAN US PSYD [id number] 03/02/2013 11:33:00 03/02/2013 23:59:59 CLS Outpatient CHANTELLSOURAV JERMAINE OCONNOR [id number] 03/02/2013 11:33:00 03/02/2013 23:59:59 CLS Outpatient CHANTELLSOURAV JERMAINE OCONNOR [id number] 01/11/2013 13:50:00 01/11/2013 23:59:59 CLS Outpatient LUCIANO WILLARD DO Reji [id number] 01/05/2013 15:37:00 01/05/2013 23:59:59 CLS Outpatient ARIAN US PSYD [id number] 12/16/2012 10:54:00 12/16/2012 23:59:59 CLS Outpatient ARIAN US PSYD [id number] 06/21/2012 12:53:00 06/21/2012 23:59:59 CLS Outpatient [id number] 06/09/2012 12:38:00 06/09/2012 23:59:59 CLS Outpatient [id number] 05/30/2012 14:42:00 05/30/2012 23:59:59 CLS Outpatient [id number] 05/20/2012 10:48:00 05/20/2012 23:59:59 CLS Outpatient ARIAN US PSYD [id number] 05/06/2012 10:52:00 05/06/2012 23:59:59 CLS Outpatient [id number] 04/26/2012 12:48:00 04/26/2012 23:59:59 CLS Outpatient ARIAN US PSYD [id number] 04/11/2012 12:42:00 04/11/2012 23:59:59 CLS Outpatient MCCLEEARY PSYD, DAISHA L [id number] 04/06/2012 13:34:00 04/06/2012 23:59:59 CLS Outpatient BEVERLY TAO APRN [id number] 03/31/2012 11:04:00 03/31/2012 23:59:59 CLS Outpatient [id number] 03/14/2012 12:46:00 03/14/2012 23:59:59 CLS Outpatient [id number] 02/29/2012 12:45:00 02/29/2012 23:59:59 CLS Outpatient [id number] 01/27/2012 10:14:02 01/27/2012 23:59:59 CLS Outpatient ARIAN US PSYD [id number] 12/08/2012 10:45:00 Document Registration [id number] 12/07/2012 09:39:00 Document Registration [id number] 12/01/2012 11:35:00 Document Registration [id number] 11/10/2012 14:46:00 Document Registration [id number] 10/29/2012 13:36:00 Document Registration [id number] 09/13/2012 09:57:00 Document Registration [id number] 09/06/2012 13:33:00 Document Registration [id number] 08/26/2012 09:17:00 Document Registration [id number] 08/08/2012 10:43:00 Document Registration [id number] 08/05/2012 14:59:00 Document Registration [id number] 07/19/2012 12:55:00 Document Registration [id number] 06/11/2017 13:20:00 06/11/2017 17:28:00 DIS Emergency ANGIE KIRKPATRICK [facility] ER VOMITING,ABD PAIN, WEAK [id number] 05/13/2017 01:26:00 05/13/2017 01:37:00 DIS Outpatient DELMA PIMENTEL MD [facility] ER LEFT EAR PAIN-BUG WAS IN EAR-HURTS [id number] 10/28/2016 08:54:00 10/28/2016 09:50:00 DIS Outpatient BEVERLY TOA [facility] REHAB BULGING DISC L3-4 L4-5 [id number] 08/14/2016 10:19:00 08/14/2016 11:53:00 DIS Emergency SOCO JOAQUIN APRN [facility] ER BACK/LEG PAIN [id number] 06/25/2016 11:01:00 07/15/2016 09:25:00 DIS Outpatient ZEHRA SINHA MD [facility] REHAB LUMBAGO [id number] 06/02/2016 11:47:00 06/02/2016 13:30:00 DIS Outpatient SOCO JOAQUIN APRN [facility] ER UPPER ABD PAIN [id number] 05/22/2016 10:19:00 05/22/2016 23:59:59 CLS Outpatient BEVERLY TAO [facility] RAD SCREENING [id number] 05/01/2016 13:15:00 05/01/2016 14:15:00 DIS Outpatient ZEHRA SINHA MD [facility] REHAB LUMBAGO [id number] 03/20/2016 08:18:00 03/20/2016 09:14:00 DIS Outpatient ZEHRA SINHA MD [facility] CARD M51.16 [id number] 2016 15:06:00 2016 16:06:00 DIS Emergency SOCO JOAQUIN APRN [facility] ER SHOULDER PAIN [id number] 12/04/2015 11:00:00 12/04/2015 23:59:59 CLS Outpatient ZEHRA SINHA MD [facility] RAD LOW BACK PAIN [id number] 11/12/2015 14:29:00 11/12/2015 16:16:00 DIS Emergency ANGIE KIRKPATRICK [facility] ER BACK PAIN [id number] 08/23/2015 10:08:00 08/23/2015 11:46:00 DIS Outpatient ZEHRA SINHA MD [facility] CARD DISC DISORDER [id number] 06/06/2015 20:35:00 06/06/2015 21:53:00 DIS Emergency ANGIE KIRKPATRICK [facility] ER POSSIBLE ALLERGIC REACTION [id number] 05/15/2015 10:07:00 05/15/2015 23:59:59 CLS Outpatient BEVERLY TAO [facility] RAD [id number] 10/13/2014 19:11:00 10/13/2014 19:59:00 DIS Emergency TYREE HENNESSY MD [facility] ER [id number] 09/19/2014 13:26:00 09/19/2014 14:05:00 DIS Outpatient DELMA DUFFY [facility] REHAB BACK PAIN/ RADICULOPATHY [id number] 05/15/2014 09:00:00 05/15/2014 23:59:59 CLS Outpatient CATALINA MCKNIGHT CELLULOID TRIMMER [facility] RAD [id number] 03/17/2014 11:29:00 03/17/2014 14:40:00 DIS Emergency DELMA PIMENTEL MD [facility] ER [id number] 01/15/2014 14:12:00 01/15/2014 23:59:59 CLS Outpatient ZEHRA SINHA MD [facility] CARD [id number] 12/18/2013 14:14:00 12/18/2013 15:11:00 DIS Outpatient ZEHRA SINHA MD [facility] CARD [id number] 11/20/2013 13:10:00 11/20/2013 23:59:59 CLS Outpatient ZEHRA SINHA MD [facility] CARD [id number] 10/28/2013 11:22:00 10/28/2013 11:58:00 DIS Emergency SOCO JOAQUIN CELLULOID TRIMMER [facility] ER [id number] 09/25/2013 08:55:00 09/25/2013 23:59:59 CLS Outpatient BEVERLY TAO [facility] RAD [id number] 08/28/2013 08:04:00 08/28/2013 23:59:59 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 [id number] 07/12/2013 13:45:00 07/12/2013 14:38:00 DIS Emergency SOCO JOAQUIN CELLULOID TRIMMER [facility] ER [id number] 03/28/2013 12:43:00 03/28/2013 23:59:59 CLS Outpatient CHONG HORTON [facility] RAD RT BREAST PAIN [id number] 09/15/2012 12:06:00 09/15/2012 15:15:00 DIS Emergency MATTHEW GAYLE, BERNY Mendoza [facility] ER LEFT LEG/FOOT PAIN [id number] 04/07/2012 14:25:00 Document Registration [id number] 01/25/2012 12:35:00 Document Registration [id number] 06/10/2011 14:07:00 Document Registration [id number] 06/05/2011 09:06:00 Document Registration [id number] 04/15/2011 21:55:00 Document Registration [id number] 07/09/2010 21:31:00 Document Registration
[2017-06-15] MEDS ORDERED: TRIAMCINOLONE 0.1% CR (KENALOG) 15 GM TUBE TOP SCH (09:00)
== END 2017-06-14 22:20 | disposition home or self-care (01) ==
LOC: EDUNIT# 21:54 → ER 21:55
DX: L30.9 Dermatitis, unspecified (principal); E78.00 Pure hypercholesterolemia, unspecified; G43.909 Migraine, unspecified, not intractable, without status migrainosus; F41.9 Anxiety disorder, unspecified; F31.9 Bipolar disorder, unspecified; E11.9 Type 2 diabetes mellitus without complications; Z88.1 Allergy status to other antibiotic agents; Z88.8 Allergy status to other drugs, medicaments and biological substances; Z79.52 Long term (current) use of systemic steroids; Z79.4 Long term (current) use of insulin; Z87.59 Personal history of other complications of pregnancy, childbirth and the puerperium; Z87.19 Personal history of other diseases of the digestive system
CPT/HCPCS: 99282

== ENCOUNTER 2017-09-01 18:27 | Emergency (ER) | payer SELFPAY ==
[~2017-09-01] VITALS: Ht 157.5 cm; Wt 83.0 kg
[~2017-09-01 18:27] MED LIST changes: +TR1C15 TP
--- OUTSIDE RECORDS SUMMARY | 2017-09-01 18:34 | XMS REPORT ---
Author Author BEVERLY TAO Organization [facility] Address [address] [place] [address] Care Team Providers Care Hand Laster Name Role Phone BEVRELY TAO Unavailable PROBLEMS Type Condition ICD9-CM Code XPD71-RY Code Onset Dates Condition Status SNOMED Code Problem Diabetes E11.9 Active 727875277 Problem Lumbar radiculopathy M54.16 Active 203774302 Problem Irritable bowel syndrome with diarrhea K58.0 Active 564744079 Problem New daily persistent headache G44.52 Active 975149132 Problem Acute bilateral low back pain with right-sided sciatica M54.41 Active 592071839 Problem [facility] current 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 Z79.891 Active 097998451 Problem Bipolar 1 disorder F31.9 Active 286621186 Problem Hyperlipidemia, unspecified E78.5 Active 87002543 Problem Type 2 diabetes mellitus with complication E11.8 Active 682221621 Problem Post laminectomy syndrome M96.1 Active 44764355 Problem Eye exam normal Z01.00 Active 768003867 Problem Bipolar disorder, in partial remission, most recent episode manic F31.73 Active 74847620 Problem Extreme poverty Z59.5 Active 16946030 Problem Obesity, unspecified 278.00 Active 349478467 Problem 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 Active 04647640 Problem Hyperlipidemia 272.4 Active 33997395 Problem Non compliance with medical treatment Z91.19 Active 2865539 ALLERGIES Substance Reaction Event Type Date Status Zithromax Chest pain Drug Allergy Aug, Active Prednisone elevated blood sugars Drug Allergy Aug, Active ENCOUNTERS Encounter Location Date Diagnosis [facility] [address] [facility] [id number] [address] Aug, [facility] [address] [facility] [id number], [place] [address] Jun, [facility] [address], [place] [address] Jun, [facility] [place] [id number] [place] [address] 22102- 7789 May, Urinary tract infection without hematuria, site unspecified N39.0 [place] [address] [place] [address] 21990- 5266 May, Bipolar 1 disorder F31.9 ; 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 and Extreme poverty Z59.5 [facility] [place] [address] [id number] [place] [address] 33934- 3943 Apr, Diabetes E11.9 and Breast cancer screening Z12.31 [place] [id number] [place] [address] 50941- 9494 Apr, Bipolar 1 disorder F31.9 and 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 [facility] [place] [address] [id number] [place] [address] 09393- 0632 Mar, Bipolar 1 disorder F31.9 ; 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 and Extreme poverty Z59.5 [facility] [address] [id number] [place] [address] 42785- 8663 Mar, New daily persistent headache G44.52 ; Leg pain 729.5 and History of carpal tunnel release Z98.890 [place] [address] [address] [id number] [place] [address] 76590- 1272 Mar, Hyperlipidemia, unspecified E78.5 [place] [address] [id number] [place] [address] 63859- 6352 Mar, Bipolar 1 disorder F31.9 ; 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 and Extreme poverty Z59.5 [place] [id number] [place] [address] 68198- 6154 Feb, Bipolar 1 disorder F31.9 ; 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 and Extreme poverty Z59.5 [place] [address] [address] [id number] [place] [address] 82084- 4414 Feb, Diabetes E11.9 [facility] [place] [address] [address] [id number] [place] [address] 37608- 1040 Feb, Viral syndrome B34.9 [facility] [place] [address] [address] [id number] [place] [address] 24008- 9714 Jan, Other viral agents as the cause of diseases classified elsewhere B97.89 and Acute upper respiratory infection, unspecified J06.9 [facility] [address] [address] [id number] [place] [address] 06043- 7498 Jan, Bipolar 1 disorder F31.9 and 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 [place] [address] 02667- 8267 Jan, Bipolar 1 disorder F31.9 ; 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 and Extreme poverty Z59.5 [place] [address] 22809- 1338 Dec, Diabetes E11.9 [place] [address] 08025- 4373 Dec, Diabetes E11.9 and Encounter for immunization Z23 [facility] [address] 48644- 2741 Dec, Bipolar 1 disorder F31.9 ; 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 and Extreme poverty Z59.5 [place] [address] [id number] [place] [address] 22347- 9975 Dec, Back pain M54.9 [place] [address] [address] [id number] [place] [address] 18858- 0091 Nov, [place] [address] 10010- 9026 Nov, Bipolar 1 disorder F31.9 ; 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 and Extreme poverty Z59.5 [place] [address] 28710- 5048 Nov, Bipolar 1 disorder F31.9 ; 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 and Extreme poverty Z59.5 [place] [address] [address] [id number] [place] [address] 21749- 7475 Oct, 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 and Bipolar 1 disorder F31.9 [place] [address] [address] [id number] [place] [address] 15702- 7541 Oct, Bipolar 1 disorder F31.9 ; 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 and Extreme poverty Z59.5 [place] [address] [address] [id number] [place] [address] 70273- 9451 Oct, Back pain M54.9 [place] [address] 53885- 9056 Oct, 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 and Type 2 diabetes mellitus with complication E11.8 [place] [address] 35036- 1907 Sep, Bipolar 1 disorder F31.9 ; 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 and Extreme poverty Z59.5 [place] [address] [id number] [place] [address] 26557- 5771 Sep, 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 and Bipolar 1 disorder F31.9 [facility] [address] [id number] [place] [address] 08372- 3420 Sep, Bipolar 1 disorder F31.9 ; 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 and Extreme poverty Z59.5 [facility] [address] [id number] [place] [address] 61354- 1083 Aug, Diabetes E11.9 ; Hyperlipidemia, unspecified E78.5 and Lumbar radiculopathy M54.16 [place] [address] [id number] [place] [address] 86518- 4292 Aug, Bipolar 1 disorder F31.9 ; 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 and Extreme poverty Z59.5 [place] [address] [address] [id number] [place] [address] 91187- 1149 Aug, [facility] [address], [place] [address] 6689 Aug, [facility] [id number] [place] [address] 59378- 9482 Aug, [facility] [address], [place] [address] 8297 July, [facility] [address] [place] [id number] [place] [address] 34848- 9399 July, Acute bilateral low back pain with right-sided sciatica M54.41 [place] [address] [place] [address] 55289- 8882 July, Bipolar 1 disorder F31.9 ; 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 and Extreme poverty Z59.5 [place] [address] [place] [address] 95961- 2277 July, Back pain M54.9 and Diabetes E11.9 [place] [address] [place] [address] 97199- 9921 Jun, Bipolar 1 disorder F31.9 ; 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 and Extreme poverty Z59.5 [place] [address], [place] [address] 6299 Jun, Bipolar 1 disorder F31.9 ; 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 and Extreme poverty Z59.5 [place] [id number] [place] [address] 30973- 8952 May, Visit for pelvic exam Z01.419 ; Acute vaginitis N76.0 and Diabetes E11.9 [place] [address] [place] [address] 44482- 2365 May, Bipolar 1 disorder F31.9 ; 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 and Extreme poverty Z59.5 [place] [address], [place] [address]- 4194 May, [facility] [address] [address] [id number] [place] [address] 32415- 1466 May, [place] [address] [id number] [place] [address] 11837- 8273 May, Bipolar 1 disorder F31.9 ; 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 and Extreme poverty Z59.5 [place] [address] [place] [address] 34218- 3403 May, Hyperlipidemia, unspecified E78.5 [place] [address] [address] [id number] [place] [address] 81843- 3130 Apr, Breast cancer screening Z12.39 [place] [address] 34156- 0336 Mar, [place] [address] [address] [id number] [place] [address] 44121- 7465 Mar, Bipolar disorder, current episode mixed, unspecified F31.60 [place] [address] [address] [id number] [place] [address] 98489- 8493 Mar, Bipolar 1 disorder F31.9 ; 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 and Extreme poverty Z59.5 [place] [address] [id number] [place] [address] 20728- 4664 Feb, Acute nasopharyngitis J00 [place] [id number] [place] [address] 85740- 5698 Feb, Dental examination Z01.20 [place] [address] [address] [id number] [place] [address] 78543- 6344 Feb, Dental cavities K02.9 and Chronic periodontitis, unspecified K05.30 [place] [address] [address] [id number] [place] [address] 96696- 5187 Feb, Low back pain M54.5 and Extreme poverty Z59.5 [place] [address] [place] [address] [id number] [place] [address] 34005- 4572 Feb, [place] [address] [place] [address] [id number] [place] [address] 43474- 1980 05 Feb, 2016 Routine gynecological examination V72.31 ; Breast cancer screening Z12.39 and Herpes simplex type 1 infection B00.9 [place] [address] [address] [id number] [place] [address] 01076- 6559 02 Feb, 2016 Diabetes E11.9 [place] [id number] [place] [address] 36999- 3325 Feb, Encounter for dental examination and cleaning without abnormal findings Z01.20 [place] [address] [address] [id number] [place] [address] 12097- 1103 Jan, Hyperlipidemia, unspecified E78.5 [place] [address] [place] [address] [id number] [place] [address] 99663- 3447 Jan, Bipolar 1 disorder F31.9 ; 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 and Extreme poverty Z59.5 [place] [id number] [place] [address] 34625- 6578 18 Jan, 2016 Diabetes E11.9 [place] [address] [id number] [place] [address] 23907- 3812 17 Jan, 2016 Diabetes E11.9 [place] [address] [id number] [place] [address] 26011- 3704 14 Dec, 2015 Bipolar 1 disorder F31.9 ; 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 and Extreme poverty Z59.5 [place] [address] [id number] [place] [address] 37693- 6387 13 Dec, 2015 Bipolar disorder, current episode mixed, unspecified F31.60 and 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 [place] [id number] [place] [address] 80807- 0869 16 Nov, 2015 Bipolar 1 disorder F31.9 ; 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 ; Extreme poverty Z59.5 and Non compliance with medical treatment Z91.19 [place] [address] [place] [id number] [place] [address] 40454- 0744 Oct, [place] [id number] [place] [address] 51545- 3229 Oct, Dental caries K02.9 [place] [address] [id number] [place] [address] 57115- 7493 Oct, Low back pain M54.5 and Other chronic pain G89.29 [place] [address] [address] [id number] [place] [address] 39720- 1610 Oct, Bipolar 1 disorder F31.9 ; 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 ; Extreme poverty Z59.5 and Non compliance with medical treatment Z91.19 [place] [address] [address] [id number] [place] [address] 05838- 9170 Oct, [place] [address] [id number] [place] [address] 25609- 5189 Oct, [place] [address] [id number] [place] [address] 41305- 0539 Oct, Dental examination Z01.20 [place] [address] [place] [address] [id number] [place] [address] 88206- 9888 Oct, Bipolar 1 disorder F31.9 ; 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 ; Extreme poverty Z59.5 and Non compliance with medical treatment Z91.19 [place] [address] [place] [address] [id number] [place] [address] 44708- 9206 Oct, [place] [address] [place] [address] [id number] [place] [address] 76673- 5399 Sep, Type 2 diabetes mellitus with complication E11.8 [place] [id number] [place] [address] 21147- 9500 Sep, Bipolar disorder, current episode mixed, unspecified F31.60 [place] [address] [place] [id number] [place] [address] 68489- 2893 Sep, Bipolar disorder, current episode mixed, unspecified F31.60 [place] [address] [place] [address] [id number] [place] [address] 50827- 8234 Sep, Bipolar disorder, in partial remission, most recent episode manic F31.73 ; 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 ; Extreme poverty Z59.5 and Non compliance with medical treatment Z91.19 [place] [address] [place] [address] 05968- 7234 Aug, Bipolar disorder, in partial remission, most recent episode manic F31.73 ; 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 ; Extreme poverty Z59.5 and Non compliance with medical treatment Z91.19 [place] [address] [place] [address] 94072- 1835 Aug, Bipolar disorder, in partial remission, most recent episode manic F31.73 ; 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 ; Extreme poverty Z59.5 and Non compliance with medical treatment Z91.19 [place] [address] [place] [address] 74769- 8833 Aug, [place] [address] [place] [address] [id number] [place] [address] 07203- 6304 July, Bipolar disorder, in partial remission, most recent episode manic F31.73 ; 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 ; Extreme poverty Z59.5 and Non compliance with medical treatment Z91.19 [place] [address] [place] [address] 71928- 9299 July, Bipolar disorder, current episode mixed, unspecified F31.60 [place] [address] [place] [address] 22728- 3588 July, Bipolar disorder, in partial remission, most recent episode manic F31.73 ; 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 ; Extreme poverty Z59.5 and Non compliance with medical treatment Z91.19 [place] [address] [place] [address] 93765- 7713 July, [facility] current 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 Z79.891 and Chronic pain G89.29 [place] [address] [place] [address] 67790- 8967 Jun, [employer] current 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 Z79.891 and Bipolar 1 disorder F31.9 [place] [address] [address]- 8409 Jun, [facility] [address], [place] [address]- 8964 Jun, [place] [id number] [place] [address] 79863- 4008 Jun, [facility] [id number] [place] [address] 99205- 9602 Jun, Bipolar disorder, in partial remission, most recent episode manic F31.73 ; 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 and Non compliance with medical treatment Z91.19 [place] [address] [place] [address] 79342- 1410 May, Bipolar disorder, in partial remission, most recent episode manic F31.73 ; 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 and Non compliance with medical treatment Z91.19 [place] [address] [address]- 7186 May, Bipolar disorder, in partial remission, most recent episode manic F31.73 [place] [address] [address]- 0649 May, Diabetes E11.9 and Chronic pain G89.29 [facility] [address] [address]- 8039 14 May, 2015 [place] [id number] [place] [address] 46892- 7917 08 May, 2015 Bipolar disorder, in partial remission, most recent episode manic F31.73 ; Non compliance with medical treatment Z91.19 and 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 [place] [address] [address]- 3623 08 May, 2015 Type 2 diabetes mellitus with complication E11.8 and Back pain M54.9 [place] [address] [place] [address] [id number] [place] [address] 00801- 3770 May, Bipolar disorder, in partial remission, most recent episode manic F31.73 and 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 [place] [address] [place] [address] [id number] [place] [address] 72525- 7338 Apr, [place] [address] [place] [address] [id number] [place] [address] 95119- 5232 Apr, [place] [address] 76843- 7177 Apr, [place] [address] 66970- 5023 Apr, Diabetes E11.9 ; Irritable bowel syndrome with diarrhea K58.0 and Lumbar radiculopathy M54.16 [place] [address] [place] [address] [id number] [place] [address] 06870- 7084 Apr, Breast screening Z12.39 [place] [address] [place] [address] [id number] [place] [address] 02617- 7991 Apr, Bipolar disorder, in partial remission, most recent episode manic F31.73 ; Non compliance with medical treatment Z91.19 and 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 [place] [address] [place] [address] [id number] [place] [address] 63125- 1377 Mar, Edema, unspecified type R60.9 and Type 2 diabetes mellitus with complication E11.8 [place] [address] [place] [address] [id number] [place] [address] 78966- 0884 Mar, Bipolar disorder, in partial remission, most recent episode manic F31.73 ; Non compliance with medical treatment Z91.19 ; 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 and Extreme poverty Z59.5 [place] [address] [place] [address] [id number] [place] [address] 65525- 4844 Mar, Bipolar disorder, current episode mixed, unspecified F31.60 ; 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 ; Extreme poverty Z59.5 and Generalized anxiety disorder F41.1 [place] [address] [address]- 9712 12 Mar, 2015 Bipolar disorder, in partial remission, most recent episode manic F31.73 ; 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 and Extreme poverty Z59.5 [place] [address] [address]- 1107 Feb, Bipolar disorder, in partial remission, most recent episode manic F31.73 ; 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 and Extreme poverty Z59.5 [place] [address] [address]- 5874 Feb, Bipolar disorder, in partial remission, most recent episode manic F31.73 ; 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 and Extreme poverty Z59.5 [place] [address] [address]- 5332 Feb, [place] [address] [place] [address] [id number] [place] [address] 57434- 8236 Jan, Type 2 diabetes mellitus with complication E11.8 and Petechiae R23.3 [place] [address] [place] [address] 42055- 8293 Jan, Type 2 diabetes mellitus with complication E11.8 ; Edema, unspecified R60.9 ; Petechiae R23.3 and Diabetes E11.9 [place] [address] [address]- 6262 Jan, Bipolar disorder, in partial remission, most recent episode manic F31.73 ; 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 and Extreme poverty Z59.5 [place] [address] [address]- 6071 Jan, Bipolar disorder, in partial remission, most recent episode manic F31.73 ; 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 and Extreme poverty Z59.5 [place] [address] [address]- 0287 Dec, Bipolar disorder, in partial remission, most recent episode manic F31.73 [facility] [id number] [place] [address] 42382- 7853 Dec, Edema, due to unspecified malnutrition type, unspecified edema R60.9 and Essential hypertension I10 [facility] [address] [id number] [place] [address] 73156- 2024 Dec, Bipolar disorder, in partial remission, most recent episode manic F31.73 [facility] [address] 33107- 3072 Nov, Bipolar I disorder, most recent episode (or current) mixed, unspecified 296.60 [place] [address] 68231- 7119 Nov, Stress incontinence, female 625.6 ; Back pain 724.5 and Leg pain 729.5 [place] [address] 12027- 3580 Nov, Generalized anxiety disorder 300.02 and Bipolar II disorder 296.89 [facility] [address] 27283- 3816 Nov, Bipolar I disorder, most recent episode (or current) mixed, unspecified 296.60 [facility] [address] [id number] [place] [address] 42855- 7493 Oct, [facility] [address] [place] [id number] [place] [address] 25734- 1532 Oct, [facility] [id number] [place] [address] 25668- 7214 Oct, [facility] [address] [id number] [place] [address] 51890- 4032 Oct, Bipolar I disorder, most recent episode (or current) mixed, unspecified 296.60 [facility] [id number] [place] [address] 72505- 2910 Sep, Diabetes 250.00 [facility] [address] [address]- 6184 Sep, Bipolar I disorder, most recent episode (or current) mixed, unspecified 296.60 [facility] [address]- 1058 Sep, [facility] [address], [place] [address]- 8569 Sep, [facility] [address] [id number] [place] [address] 69410- 9394 Sep, Bipolar I disorder, most recent episode (or current) mixed, unspecified 296.60 [facility] [address] [id number] [place] [address] 351366- 4685 Sep, Bipolar I disorder, most recent episode (or current) mixed, unspecified 296.60 [facility] [address], [place] [address]- 4156 Sep, [facility] [address] [id number] [place] [address] 60024- 3739 Sep, Anxiety 300.00 ; Diabetes 250.00 and Hyperlipidemia 272.4 [facility] [address] [id number] [place] [address] 82097- 5837 Aug, [facility] [address], [place] [address]- 1489 Aug, [facility] [address], [place] [address]- 7727 Aug, [facility] [id number] [place] [address] 82038- 6539 Aug, Bipolar I disorder, most recent episode (or current) mixed, unspecified 296.60 [facility] [id number] [place] [address] 42713- 3855 Aug, Generalized anxiety disorder 300.02 and Bipolar II disorder 296.89 [facility] [id number] [place] [address] 92249- 9788 July, Bipolar I disorder, most recent episode (or current) mixed, unspecified 296.60 [facility] [address], [place] [address]- 9928 July, Cough 786.2 [facility] [address] [id number] [place] [address] 25080- 3506 July, Bipolar I disorder, most recent episode (or current) mixed, unspecified 296.60 [facility] [address] [id number] [place] [address] 505253- 2821 Jun, Diabetes 250.00 [facility] [id number] [place] [address] 14798- 3459 Jun, [facility] [address] [id number] [place] [address] 85570- 5015 Jun, [facility] [address] [address]- 1479 May, [facility] [id number] [address]- 5115 May, [facility] [address] [address]- 0067 May, [facility] [address] [id number], [place] [address] May, [facility] [id number], [place] [address] May, [facility] [id number], [place] [address] 67[address] May, [facility] [id number], [place] [address] 9674 Apr, [facility] [id number], [place] [address]257 Apr, [facility] [id number], [place] [address] 47[address] Apr, [facility] [place] [facility] [address] [id number] [place] [address] 7180 Apr, [facility] [place] [facility] [address] [id number] [place] [address]- 7293 Apr, [facility] [place] [facility] [address] [id number] [place] [address]- 1437 Apr, [facility] [place] [facility] [address] [id number] [place] [address]- 8456 Apr, [facility] [place] [facility] [address] [id number] [place] [address]- 9425 Apr, [facility] [place] [facility] [address] [id number] [place] [address]- 5797 Mar, [facility] [place] [facility] [address] [id number] [place] [address]- 6288 Mar, [facility] [place] [facility] [address] [id number] [place] [address]- 6769 Mar, [facility] [place] [facility] [address] [id number] [place] [address]- 5176 Mar, [facility] [place] [facility] [address] [id number] [place] [address]- 2090 Mar, [facility] [place] [facility] [address] [id number] [place] [address]- 7309 Mar, [facility] [place] [facility] [address] [id number] [place] [address]- 4472 Mar, [facility] [place] [facility] [address] [id number] [place] [address]- 2306 Mar, [facility] [place] [facility] [address] [id number] [place] [address]- 0258 Feb, [facility] [place] [facility] [address] [id number] [place] [address]- 8713 Feb, [facility] [place] [facility] [address] [id number] [place] [address]- 1896 Feb, [facility] [place] [facility] [address] [id number] [place] [address]- 5322 Feb, [facility] [place] [facility] [address] [id number] [place] [address]- 6417 Feb, [facility] [place] [facility] [address] [id number] [place] [address]- 2395 Feb, [facility] [place] [facility] [address] [id number] [place] [address]- 2912 Feb, [facility] [place] [facility] [address] [id number] [place] [address]- 9330 Feb, [facility] [place] [facility] [address] [id number] [place] [address]- 3844 Feb, [facility] [place] [facility] [address] [id number] [place] [address]- 1055 Feb, [facility] [place] [facility] [address] [id number] [place] [address]- 7341 Jan, [facility] [place] [facility] [address] [id number] [place] [address]- 3188 Jan, [facility] [place] [facility] [address] [id number] [place] [address]- 5965 Jan, [facility] [place] [facility] [address] [id number], [place] [address]- 3[address] Jan, [facility] [place] [facility] [address] [id number], [place] [address]- 8972 Jan, [facility] [place] [facility] [address] [id number] [place] [address]- 2814 Jan, [facility] [place] [facility] [address] [id number] [place] [address]- 9963 Jan, [facility] [place] [facility] [address] [id number] [place] [address]- 8836 Jan, [facility] [place] [facility] [address] [id number] [place] [address]- 9472 Jan, [facility] [place] [facility] [address] [id number] [place] [address]- 5414 Jan, [facility] [place] [facility] [address] [id number] [place] [address] Jan, [facility] [place] [facility] [address] [id number] [place] [address]- 3288 Jan, [facility] [place] [facility] [address] [id number] [place] [address]- 2594 Jan, [facility] [place] [facility] [address] [id number] [place] [address]- 8815 Jan, [facility] [place] [facility] [address] [id number] [place] [address]- 0587 Jan, [facility] [place] [facility] [address] [id number] [place] [address]- 0724 Dec, [facility] [place] [facility] [address] [id number] [place] [address]- 0045 Dec, [facility] [place] [facility] [address] [id number] [place] [address]- 8803 Dec, [facility] [place] [facility] [address] [id number] [place] [address]- 3588 Dec, [facility] [place] [facility] [address] [id number] [place] [address]- 7999 Dec, [facility] [place] [facility] [address] [id number] [place] [address]- 4600 Dec, [facility] [place] [facility] [address] [id number] [place] [address]- 5274 Dec, [facility] [place] [facility] [address] [id number] [place] [address]- 4536 Dec, [facility] [place] [facility] [address] [id number] [place] [address]- 5470 Nov, [facility] [place] [facility] [address] [id number] [place] [address] 2544 25 Sep, 2013 [facility] [place] [facility] [address] [id number] [place] [address] 2546 10 Sep, 2013 [facility] [place] [facility] [address] [id number] [place] [address]- 9221 10 Sep, 2013 [facility] [place] [facility] [address] [id number] [place] [address] 2542 08 Sep, 2013 [facility] [place] [facility] [address] [id number] [place] [address]- 7226 08 Sep, 2013 [facility] [place] [facility] [address] [id number] [place] [address]- 5482 08 Sep, 2013 [facility] [place] [facility] [address] [id number] [place] [address]- 4682 08 Sep, 2013 [facility] [place] [facility] [address] [id number] [place] [address]- 7940 08 Sep, 2013 [facility] [place] [facility] [address] [id number] [place] [address]- 1534 08 Sep, 2013 [facility] [place] [facility] [address] [id number] [place] [address]- 6170 04 Sep, 2013 [facility] [place] [facility] [address] [id number] [place] [address] 2548 04 Sep, 2013 [facility] [place] [facility] [address] [id number] [place] [address]- 8862 03 Sep, 2013 [facility] [place] [facility] [address] [id number] [place] [address] 2545 02 Sep, 2013 [facility] [place] [facility] [address] [id number] [place] [address]- 3536 02 Sep, 2013 [facility] [place] [facility] [address] [id number] [place] [address]- 6646 27 Oct, 2013 [facility] [place] [facility] [address] [id number] [place] [address]- 8662 Oct, [facility] [place] [facility] [address] [id number] [place] [address]- 9868 Oct, [facility] [place] [facility] [address] [id number] [place] [address]- 4582 Oct, [facility] [place] [facility] [address] [id number] [place] [address]- 4323 Oct, [facility] [place] [facility] [address] [id number] [place] [address]- 7102 Oct, [facility] [place] [facility] [address] [id number] [place] [address]- 1814 Oct, [facility] [place] [facility] [address] [id number] [place] [address]- 1940 Oct, [facility] [place] [facility] [address] [id number] [place] [address]- 1902 Oct, [facility] [place] [facility] [address] [id number] [place] [address]- 3051 Oct, [facility] [place] [facility] [address] [id number] [place] [address]- 1928 Oct, [facility] [place] [facility] [address] [id number] [place] [address]- 8471 Oct, [facility] [place] [facility] [address] [id number] [place] [address]- 3142 Oct, [facility] [place] [facility] [address] [id number] [place] [address]- 6262 Oct, [facility] [place] [facility] [address] [id number] [place] [address]- 8378 Sep, [facility] [place] [facility] [address] [id number] [place] [address]- 4626 Sep, [facility] [place] [facility] [address] [id number] [place] [address]- 5745 Sep, [facility] [place] [facility] [address] [id number] [place] [address]- 4857 Sep, [facility] [place] [facility] [address] [id number] [place] [address]- 7272 Sep, [facility] [place] [facility] [address] [id number] [place] [address]88 Sep, [facility] [place] [facility] [address] [id number] [place] [address]- 2607 Sep, [facility] [place] [facility] [address] [id number] [place] [address]- 8120 Sep, [facility] [place] [facility] [address] [id number] [place] [address]- 9441 Aug, [facility] [place] [facility] [address] [id number] [place] [address]- 5284 Aug, [facility] [place] [facility] [address] [id number] [place] [address]- 5540 Aug, [facility] [place] [facility] [address] [id number] [place] [address]- 7272 Aug, [facility] [place] [facility] [address] [id number] [place] [address]- 2750 Aug, [facility] [place] [facility] [address] [id number] [place] [address]- 1526 Aug, [facility] [place] [facility] [address] [id number] [place] [address]- 4671 Aug, [facility] [place] [facility] [address] [id number] [place] [address]- 6684 Aug, [facility] [place] [facility] [address] [id number] [place] [address]- 4980 July, [facility] [place] [facility] [address] [id number] [place] [address]- 5574 July, [facility] [place] [facility] [address] [id number] [place] [address]- 9857 July, [facility] [address] [id number] [place] [address]- 5969 July, [facility] [place] [facility] [address] [id number] [place] [address]- 7133 July, [facility] [place] [facility] [address] [id number] [place] [address]79 July, [facility] [place] [facility] [address] [id number] [place] [address]- 0431 July, [facility] [place] [facility] [address] [id number] [place] [address]- 9887 July, [facility] [place] [facility] [address] [id number] [place] [address]- 9389 Jun, [facility] [place] [facility] [address] [id number] [place] [address]- 9592 Jun, [facility] [place] [facility] [address] [id number] [place] [address]- 6599 Jun, [facility] [place] [facility] [address] [id number] [place] [address]- 0280 Jun, [facility] [place] [facility] [address] [id number] [place] [address]- 0826 Jun, [facility] [place] [facility] [address] [id number] [place] [address]- 9584 Jun, [facility] [place] [facility] [address] [id number], [place] [address]- 1083 Jun, [facility] [place] [facility] [address] [id number] [place] [address]- 0108 Jun, [facility] [place] [facility] [address] [id number] [place] [address]- 9072 Jun, [facility] [place] [facility] [address] [id number] [place] [address]- 1254 Jun, [facility] [place] [facility] [address] [id number] [place] [address]- 3431 Jun, [facility] [place] [facility] [address] [id number] [place]69 Jun, [facility] [place] [facility] [address] [id number] [place] [address]- 6576 May, [facility] [place] [facility] [address] [id number] [place] [address]- 7847 May, [facility] [place] [facility] [address] [id number] [place] [address]- 7938 May, [facility] [place] [facility] [address] [id number] [place] [address]- 9259 May, [facility] [place] [facility] [address] [id number] [place] [address]- 0021 May, [facility] [place] [facility] [address] [id number] [place] [address]- 1305 May, [facility] [place] [facility] [address] [id number] [place] [address]- 9556 May, [facility] [place] [facility] [address] [id number] [place] [address]- 2620 May, [facility] [place] [facility] [address] [id number] [place] [address]- 9930 May, [facility] [place] [facility] [address] [id number] [place] [address]- 6718 May, [facility] [place] [facility] [address] [id number] [place] [address]- 0503 May, [facility] [place] [facility] [address] [id number] [place] [address]- 2152 May, [facility] [place] [facility] [address] [id number] [place] [address]- 3750 10 May, 2013 [facility] [place] [facility] [address] [id number] [place] [address]- 5817 May, [facility] [place] [facility] [address] [id number] [place] [address]- 4623 Apr, [facility] [place] [facility] [address] [id number] [place] [address]- 4396 Apr, [facility] [place] [facility] [address] [id number] [place] [address]- 6419 Apr, [facility] [place] [facility] [address] [id number] [place] [address]- 6404 Apr, [facility] [place] [facility] [address] [id number] [place] [address]- 9271 Apr, [facility] [place] [facility] [address] [id number] [place] [address]- 9549 Apr, [facility] [place] [facility] [address] [id number] [place] [address]- 4139 Mar, [facility] [place] [facility] [address] [id number] [place] [address]- 7231 Mar, [facility] [place] [facility] [address] [id number] [place] [address]- 0148 Mar, [facility] [place] [facility] [address] [id number] [place] [address]- 1154 Mar, [facility] [place] [facility] [address] [id number] [place] [address]- 9563 Mar, [facility] [place] [facility] [address] [id number], [place] [address]- 2593 Mar, [facility] [place] [facility] [address] [id number] [place] [address]- 4201 Mar, [facility] [place] [facility] [address] [id number] [place] [address]- 4623 Mar, [facility] [place] [facility] [address] [id number] [place] [address]- 2000 Mar, [facility] [place] [facility] [address] [id number] [place] [address]- 6576 15 Mar, 2013 [facility] [address] [id number] [place] [address]- 8900 Mar, [facility] [place] [facility] [address] [id number] [place] 8836 Mar, [facility] [address] [id number] [place] [address]- 7026 Mar, [facility] [place] [facility] [address] [id number] [place] [address]- 3472 Mar, [facility] [address] [id number] [place] [address]- 7927 Feb, [facility] [address] [id number] [place] [address]- 2142 Feb, [facility] [address] [id number] [place] [address]- 3397 Feb, [facility] [place] [facility] [address] [id number] [place] [address]- 1226 Feb, [facility] [address] [id number] [place] [address]- 5301 Feb, [facility] [address] [id number] [place] [address]- 2384 Feb, [facility] [place] [facility] [address] [id number] [place] [address]- 1307 Feb, [facility] [place] [facility] [address] [id number] [place] [address]- 6527 Feb, [facility] [place] [facility] [address] [id number] [place] [address]- 5190 Feb, [facility] [place] [facility] [address] [id number] [place] [address]- 8249 Feb, [facility] [place] [facility] [address] [id number] [place] 0748 Feb, [facility] [place] [facility] [address] [id number] [place] [address]- 7247 09 Feb, 2012 [facility] [place] [facility] [address] [id number] [place] [address]- 9746 05 Feb, 2012 [facility] [place] [facility] [address] [id number] [place] [address]- 3981 05 Feb, 2012 [facility] [place] [facility] [address] [id number] [place] [address]- 4765 05 Feb, 2012 [facility] [place] [facility] [address] [id number] [place] [address]- 8773 05 Feb, 2012 [facility] [place] [facility] [address] [id number] [place] [address]- 4804 24 Dec, 2012 [facility] [place] [facility] [address] [id number] [place] [address]- 4913 24 Dec, 2012 [facility] [place] [facility] [address] [id number] [place] [address]- 2427 16 Dec, 2012 [facility] [place] [facility] [address] [id number] [place] [address]- 8322 16 Dec, 2012 [facility] [place] [facility] [address] [id number] [place] [address]- 1731 16 Dec, 2012 [facility] [place] [facility] [address] [id number] [place] [address]- 6735 16 Dec, 2012 [facility] [place] [facility] [address] [id number], [place] [address]- 3985 14 Dec, 2012 [facility] [place] [facility] [address] [id number] [place] [address]- 8214 14 Dec, 2012 [facility] [place] [facility] [address] [id number] [place] [address]- 3250 10 Dec, 2012 [facility] [place] [facility] [address] [id number] [place] [address]- 5954 10 Dec, 2012 [facility] [place] [facility] [address] [id number], [place] [address]- 9715 Dec, [facility] [place] [facility] [address] [id number] [place] [address]- 7606 10 Dec, 2012 [facility] [place] [facility] [address] [id number] [place] [address]45 Dec, [facility] [place] [facility] [address] [id number] [place] [address]- 3149 25 Nov, 2012 [facility] [place] [facility] [address] [id number] [place] [address]- 6078 20 Nov, 2012 [facility] [place] [facility] [address] [id number] [place] [address]- 2582 18 Nov, 2012 [facility] [place] [facility] [address] [id number] [place] [address]- 7225 16 Nov, 2012 [facility] [place] [facility] [address] [id number] [place] [address]- 1281 12 Nov, 2012 [facility] [place] [facility] [address] [id number] [place] [address]- 2946 11 Nov, 2012 [facility] [place] [facility] [address] [id number] [place] [address]- 2060 05 Nov, 2012 [facility] [place] [facility] [address] [id number] [place] [address]- 5199 15 Oct, 2012 [facility] [place] [facility] [address] [id number] [place] [address] Oct, [facility] [place] [facility] [address] [id number], [place] [address] Sep, [facility] [place] [facility] [address] [id number] [place] [address] Sep, [facility] [place] [facility] [address] [id number] [place] [address] Sep, [facility] [place] [facility] [address] [id number] [place] [address] Sep, [facility] [place] [facility] [address] [id number] [place] [address] 15 Sep, 2012 [facility] [address] [id number] [place] [address] 09 Sep, 2012 [facility] [address] [id number] [place] [address] 08 Sep, 2012 [facility] [address] [id number] [place] [address] Aug, [facility] [address] [id number] [place] [address] 18 Aug, 2012 [facility] [address] [id number] [place] [address] 1492 16 Aug, 2012 [facility] [address] [id number] [place] [address] Aug, [facility] [address] [id number] [place] [address] 15[address] Aug, [facility] [address] [id number] [place] [address] Aug, [facility] [address] [id number] [place] [address] 77[address] Aug, [facility] [address] [id number] [place] [address] Aug, [facility] [address] [id number] [place] [address] 270[address] July, [facility] [address] [id number] [place] [address] July, [facility] [address] [id number] [place] [address] July, [facility] [address] [id number] [place] [id number] July, [facility] [place] [facility] [address] [id number] [place] [address] July, [facility] [place] [facility] [address] [id number] [place] [address] 9527 Jun, [facility] [address] [id number] [place] [address] 6[address] May, [facility] [address] [id number] [place] [address] May, [facility] [address] [id number] [place] [address] 5975 May, [facility] [address] [id number] [place] [address] Apr, [facility] [address] [id number] [place] [address]207 Apr, [facility] [address] [id number] [place] [address] Apr, [facility] [address] [id number] [place] [address] Mar, [facility] [address] [id number] [place] [address] Mar, [facility] [address] [id number] [place] [address] Mar, [facility] [address] [id number] [place] [address]400 Mar, [facility] [address] [id number], [place] [address] Mar, [facility] [place] [facility] [address] [id number] [place] [address] 1796 Mar, [facility] [place] [facility] [address] [id number] [place] [address] 9226 Mar, [facility] [place] [facility] [address] [id number] [place] [address] 3210 Feb, [facility] [address] [id number], [place] [address] 31 Feb, 2012 [facility] [place] [facility] [address] [id number] [place] [address] 2967 18 Feb, 2012 [facility] [place] [facility] [address] [id number] [place] [address] 18 Feb, 2012 [facility] [place] [facility] [address] [facility] [id number] [place] [address] 8110 17 Feb, 2012 [facility] [place] [facility] [address] [id number] [place] [address]67 17 Feb, 2012 [facility] [place] [facility] [address] [facility] [id number] [place] [address]- 7681 Feb, [facility] [place] [facility] [address] [id number] [place] [address]- 1699 Feb, [facility] [place] [facility] [id number] [place] [address] Jan, [facility] [place] [facility] [address] [id number] [place] [address] 9629 Jan, [facility] [place] [facility] [id number] [place] [address] Jan, [facility] [place] [facility] [address] [id number] [place] [address] 88[address] Jan, [facility] [place] [facility] [address] [id number], [place] [address] Jan, [facility] [place] [facility] [address] [id number], [place] [address] Jan, [facility] [place] [facility] [address] [id number], [place] [address]- 3899 Jan, [facility] [place] [facility] [address] [facility] [id number], [place] [address]- 44[address] Jan, [facility] [place] [facility] [address] [id number], [place] [address] Jan, [facility] [place] [facility] [address] [id number] [place] [address]- [address]308 Jan, [facility] [place] [facility] [address] [id number] [place] [address] 2593 Jan, [facility] [place] [facility] [address] [id number] [place] [address]- 7862 Jan, [facility] [place] [facility] [address] [id number] [place] [address]- 8951 Jan, [facility] [place] [facility] [address] [id number] [place] [address]- 7404 Jan, [facility] [place] [facility] [address] [id number] [place] [address] Jan, [facility] [place] [facility] [address] [id number] [place] [address]- 7418 Jan, [facility] [place] [facility] [address] [id number] [place] [address]- 9585 Dec, [facility] [place] [facility] [address] [id number] [place] [address]- 2937 Dec, [facility] [place] [facility] [address] [id number] [place] [address]- 1668 Dec, [facility] [place] [facility] [address] [id number] [place] [address]- 5159 16 Dec, 2011 [facility] [place] [facility] [address] [id number] [place] [address]- 1241 Dec, [facility] [place] [facility] [address] [id number] [place] [address]- 5746 Dec, [facility] [place] [facility] [address] [id number] [place] [address]- 7768 Dec, [facility] [place] [facility] [address] [id number] [place] [address] Dec, [facility] [place] [facility] [address] [id number] [place] [address] 4169 Dec, [facility] [place] [facility] [address] [id number] [place] [address]- 8179 05 Dec, 2011 [facility] [place] [facility] [address] [id number] [place] [address]- 6539 18 Nov, 2011 [facility] [place] [facility] [address] [id number] [place] [address]- 4602 13 Nov, 2011 [facility] [place] [facility] [address] [id number] [place] [address]- 8302 24 Oct, 2011 [facility] [place] [facility] [address] [id number] [place] [address]- 0699 Oct, [facility] [place] [facility] [address] [id number] [place] [address]- 1659 Oct, [facility] [place] [facility] [address] [id number] [place] [address]- 7849 Oct, [facility] [place] [facility] [address] [id number] [place] [address] Oct, [facility] [place] [facility] [address] [id number] [place] [address] Oct, [facility] [place] [facility] [address] [id number] [place] [address] Oct, [facility] [place] [facility] [address] [id number], [place] [address] Sep, [facility] [place] [facility] [address] [id number], [place] [address] Aug, [facility] [place] [facility] [address] [id number] [place] [address] Aug, [facility] [place] [facility] [address] [id number] [place] [address] Aug, [facility] [place] [facility] [address] [id number] [place] [address] Aug, [facility] [place] [facility] [address] [id number] [place] [address] Aug, [facility] [address] [id number] [place] [address] July, [facility] [place] [facility] [address] [id number] [place] [address] July, [facility] [address] [id number] [place] [address] July, [facility] [place] [facility] [address] [id number] [place] [address] Jun, [facility] [place] [facility] [address] [id number] [place] [address] Jun, [facility] [place] [facility] [address] [id number] [place] [address] Jun, [facility] [address] [id number] [place] [address] Jun, [facility] [place] [facility] [address] [id number] [place] [address] May, [facility] [place] [facility] [address] [id number] [place] [address] 30 May, 2011 [facility] [place] [facility] [address] [id number] [place] [address] May, [facility] [place] [facility] [address] [id number] [place] [address] May, [facility] [place] [facility] [address] [id number] [place] [address] May, [facility] [place] [facility] [address] [id number] [place] [address] May, [facility] [place] [facility] [address] [id number] [place] [address] May, [facility] [place] [facility] [address] [id number] [place] [address] May, [facility] [place] [facility] [address] [id number] [place] [address] 08 May, 2011 [facility] [address] [id number] [place] [address] May, [facility] [address] [id number] [place] [address] May, [facility] [address] [id number] [place] [address] May, [facility] [address] [id number] [place] [address] Mar, [facility] [address] [id number] [place] [address] Mar, [facility] [address] [id number] [place] [address] Feb, [facility] [address] [id number] [place] [address] Feb, [facility] [address] [id number] [place] [address] Feb, [facility] [address] [id number] [place] [address] 15 Feb, 2011 [facility] [address] [id number] [place] [address] Feb, [facility] [address] [id number] [place] [address] Feb, [facility] [place] [facility] [address] [id number] [place] [address] Feb, [facility] [place] [facility] [address] [id number] [place] [address] Jan, [facility] [place] [facility] [address] [id number] [place] [address] Jan, [facility] [address] [id number] [place] [address]18 Jan, [facility] [place] [facility] [address] [id number] [place] [address] Jan, [facility] [place] [facility] [address] [id number] [place] [address] Jan, [facility] [place] [facility] [address] [id number] [place] [address] Jan, [facility] [place] [facility] [address] [id number] [place] [address] Dec, [facility] [place] [facility] [address] [id number] [place] [address] Dec, [facility] [place] [facility] [address] [id number] [place] [address] Dec, [facility] [place] [facility] [address] [id number] [place] [address]255 July, [facility] [place] [facility] [address] [id number] [place] [address] July, [facility] [place] [facility] [address] [id number] [place] [address] Feb, [facility] [place] [facility] [address] [id number] [place] [address] 8[address] Jan, [facility] [place] [facility] [address] [id number] [place] [address] 79[address] Dec, [facility] [place] [facility] [address] [id number] [place] [address] Dec, [facility] [place] [facility] [address] [id number] [place] [address] Sep, [facility] [place] [facility] [address] [id number] [place] [address] Aug, [facility] [place] [facility] [address] [id number] [place] [address] Jun, [facility] [place] [facility] [id number] [place] [address] Jun, [facility] [id number], [place] [address] Jan, [facility] [id number], [place] [address] Jan, [facility] [id number], [place] [address] Jan, [facility] [address] [facility] [id number], [place] [address] Jan, [facility] [id number] [place] [address] Dec, [facility] [id number], [place] [address] Dec, [facility] [id number] [place] [address] Dec, [facility] [id number], [place] [address] Nov, [facility] [id number], [place] [address] 49[address] July, [facility] [id number], [place] [address] May, [facility] [id number], [place] [address] Apr, [facility] [id number], [place] [address] Feb, [facility] [id number], [place] [address] Dec, IMMUNIZATIONS No Known Immunizations SOCIAL HISTORY Never Assessed REASON FOR VISIT Back pain - Needs a refill of Simvastatin states she is almost out. She has no other problems to report. States she is here for a check up. - Randall CARROLL PLAN OF CARE Activity Details Follow Up 3 Months Reason:DM VITAL SIGNS Height 64 in 2016-09-16 Weight 197.3 lbs 2016-09-16 Temperature 98.6 degrees Fahrenheit 2016-09-16 Heart Rate 96 bpm 2016-09-16 Respiratory Rate 20 2016-09-16 BMI 33.86 kg/m2 2016-09-16 Blood pressure systolic 150 mmHg 2016-09-16 Blood pressure diastolic 85 mmHg 2016-09-16 MEDICATIONS Medication Instructions Dosage Frequency Start Date End Date Duration Status Victoza 18 MG/3ML Subcutaneous Once a day inject 0.3 ml 24h 90 days Active Ativan 0.5 MG Orally prn anxiety. 10/month 1 tablet as needed Sep, Active NovoLog Mix 70/30 Flexpen (70-30) 100 UNIT/ML Subcutaneous 2 times a day Inject 110 12h Active Amaryl 2 MG Orally Once a day in AM 1 tablet with breakfast or the first main meal of the day Sep, 30 day(s) Active Lamictal 200 MG Orally Once a day 1 tablet 24h May, Active Farxiga 5 MG Orally Once a day 1 tablet 24h Apr, Active Simvastatin 40 MG Orally Once a day 2 tablets in the evening 24h Sep, 90 days Active Celexa 40 MG Orally Once a day 1 tablet 24h May, Active Test strips Contour test strips 2 times a day test blood sugar 12h Aug, Active Naprosyn 500 mg Orally 2 times a daypc 1 July, Sep, 30 days Active tizanidine 4 mg 1 tablet by Oral route every 6 hours Jan, Active Actos 45 MG Orally Once a day #60 samples 1 tablet Apr, Active Toprol XL 25 mg take 1 tablet by Oral route 1 time per day take at hs May, Active Aspirin Adult Low Strength 81 MG Orally Once a day 1 tablet 24h Active RESULTS Name Result Date Reference Range A1C (IN HOUSE) 2016-09-16 A1C IN HOUSE 11.3 4.3 - 5.6 % Previous A1c 11.8 Lot [id number] Exp date PROCEDURES Procedure Date Ordered Result Body Site GLYCATED HEMOGLOBIN TEST September 16, 2016 INSTRUCTIONS MEDICATIONS ADMINISTERED No Known Medications MEDICAL [...]
--- OUTSIDE RECORDS SUMMARY | 2017-09-01 18:36 | XMS REPORT ---
Author Author ARMAANHUGOA Organization [facility] Address [address] [place] [address] Care Team Providers Care Roll Forming Supervisor Name Role Phone DOMINICKHUGO BENJAMINA Unavailable PROBLEMS Type Condition ICD9-CM Code OVQ70-UB Code Onset Dates Condition Status SNOMED Code Problem Diabetes E11.9 Active 015637276 Problem Lumbar radiculopathy M54.16 Active 730413367 Problem Irritable bowel syndrome with diarrhea K58.0 Active 130728603 Problem New daily persistent headache G44.52 Active 252406015 Problem Acute bilateral low back pain with right-sided sciatica M54.41 Active 131619645 Problem penitentiary current 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 Z79.891 Active 587571855 Problem Bipolar 1 disorder F31.9 Active 348762298 Problem Hyperlipidemia, unspecified E78.5 Active 47421139 Problem Type 2 diabetes mellitus with complication E11.8 Active 449822032 Problem Post laminectomy syndrome M96.1 Active 00788060 Problem Eye exam normal Z01.00 Active 506431000 Problem Bipolar disorder, in partial remission, most recent episode manic F31.73 Active 01581864 Problem Extreme poverty Z59.5 Active 49132002 Problem Obesity, unspecified 278.00 Active 584735308 Problem 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 Active 32948367 Problem Hyperlipidemia 272.4 Active 03180495 Problem Non compliance with medical treatment Z91.19 Active 2752930 ALLERGIES No Information ENCOUNTERS Encounter Location Date Diagnosis [facility] [address] [facility] [id number] [address] Aug, [facility] [id number] [address] July, [facility] [address] [facility] [id number] [address] Jun, Bipolar 1 disorder F31.9 ; 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 and Extreme poverty Z59.5 [place] [address] [place] [address] 63177- 9120 Jun, Bipolar 1 disorder F31.9 ; 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 and Extreme poverty Z59.5 [place] [address] [place] [address] 93880- 6569 Jun, Bipolar 1 disorder F31.9 ; 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 and Extreme poverty Z59.5 [place] [id number] [place] [address] 07854- 0567 May, Urinary tract infection without hematuria, site unspecified N39.0 [place] [id number] [place] [address] 21697- 1926 May, Bipolar 1 disorder F31.9 ; 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 and Extreme poverty Z59.5 [place] [id number] [place] [address] 13918- 4478 Apr, Diabetes E11.9 and Breast cancer screening Z12.31 [place] [id number] [place] [address] 717658- 7522 Apr, Bipolar 1 disorder F31.9 and 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 [place] [id number] [place] [address] 88785- 0022 Mar, Bipolar 1 disorder F31.9 ; 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 and Extreme poverty Z59.5 [place] [address] [place] [address] 56805- 5555 Mar, New daily persistent headache G44.52 ; Leg pain 729.5 and History of carpal tunnel release Z98.890 [place] [address] [place] [address] 07358- 5267 Mar, Hyperlipidemia, unspecified E78.5 [place] [id number] [place] [address] 64558- 9301 Mar, Bipolar 1 disorder F31.9 ; 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 and Extreme poverty Z59.5 [place] [id number] [place] [address] 92161- 5125 Feb, Bipolar 1 disorder F31.9 ; 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 and Extreme poverty Z59.5 [place] [id number] [place] [address] 93618- 1780 Feb, Diabetes E11.9 [place] [address] 99365- 4605 Feb, Viral syndrome B34.9 [place] [address] 86336- 6900 Jan, Other viral agents as the cause of diseases classified elsewhere B97.89 and Acute upper respiratory infection, unspecified J06.9 [place] [id number] [place] [address] 46753- 1178 Jan, Bipolar 1 disorder F31.9 and 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 [place] [id number] [place] [address] 22047- 5607 Jan, Bipolar 1 disorder F31.9 ; 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 and Extreme poverty Z59.5 [place] [id number] [place] [address] 09784- 5145 Dec, Diabetes E11.9 [place] [address] 76673- 6765 Dec, Diabetes E11.9 and Encounter for immunization Z23 [place] [id number] [place] [address] 48533- 9409 Dec, Bipolar 1 disorder F31.9 ; 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 and Extreme poverty Z59.5 [place] [id number] [place] [address] 57031- 1358 Dec, Back pain M54.9 [place] [address] 86502- 4444 Nov, [place] [address] [place] [address] 82918- 8615 Nov, Bipolar 1 disorder F31.9 ; 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 and Extreme poverty Z59.5 [place] [address] [place] [address] 27679- 2536 Nov, Bipolar 1 disorder F31.9 ; 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 and Extreme poverty Z59.5 [place] [address] [place] [address] 95219- 2571 Oct, 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 and Bipolar 1 disorder F31.9 [place] [id number] [place] [address] 26179- 1944 Oct, Bipolar 1 disorder F31.9 ; 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 and Extreme poverty Z59.5 [place] [id number] [place] [address] 34207- 7835 Oct, Back pain M54.9 [place] [id number] [place] [address] 62700- 8831 Oct, 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 and Type 2 diabetes mellitus with complication E11.8 [place] [address] [place] [address] 11242- 7916 Sep, Bipolar 1 disorder F31.9 ; 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 and Extreme poverty Z59.5 [place] [address] [place] [address] 38123- 6067 Sep, 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 and Bipolar 1 disorder F31.9 [place] [id number] [place] [address] 44218- 4257 Sep, Bipolar 1 disorder F31.9 ; 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 and Extreme poverty Z59.5 [place] [address] [place] [address] 17663- 1582 Aug, Diabetes E11.9 ; Hyperlipidemia, unspecified E78.5 and Lumbar radiculopathy M54.16 [facility] [address] [place] [address] 99983- 2325 Aug, Bipolar 1 disorder F31.9 ; 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 and Extreme poverty Z59.5 [facility] [id number] [place] [address] 19728- 8305 Aug, [place] [id number] [place] [address] 17434- 6151 Aug, [facility] [id number] [place] [address] 41651- 1460 Aug, [place] [id number] [place] [address] 80792- 2887 July, [place] [id number] [place] [address] 00344- 0820 July, Acute bilateral low back pain with right-sided sciatica M54.41 [place] [id number] [place] [address] 83546- 0213 July, Bipolar 1 disorder F31.9 ; 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 and Extreme poverty Z59.5 [place] [id number] [place] [address] 73569- 0813 July, Back pain M54.9 and Diabetes E11.9 [place] [id number] [place] [address] 73403- 4597 Jun, Bipolar 1 disorder F31.9 ; 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 and Extreme poverty Z59.5 [place] [address] [place] [address] 61704- 5619 Jun, Bipolar 1 disorder F31.9 ; 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 and Extreme poverty Z59.5 [place] [address] [place] [address] 28064- 1462 May, Visit for pelvic exam Z01.419 ; Acute vaginitis N76.0 and Diabetes E11.9 [place] [address] [place] [address] 84118- 5768 16 May, 2016 Bipolar 1 disorder F31.9 ; 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 and Extreme poverty Z59.5 [place] [id number] [place] [address] 10907- 8783 May, [place] [address] 76112- 1632 May, [place] [id number] [place] [address] 05909- 8691 May, Bipolar 1 disorder F31.9 ; 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 and Extreme poverty Z59.5 [place] [id number] [place] [address] 42698- 4688 May, Hyperlipidemia, unspecified E78.5 [place] [address] 00416- 1544 Apr, Breast cancer screening Z12.39 [place] [id number] [place] [address] 41670- 3987 Mar, [place] [id number] [place] [address] 37879- 9201 Mar, Bipolar disorder, current episode mixed, unspecified F31.60 [place] [id number] [place] [address] 10410- 4145 Mar, Bipolar 1 disorder F31.9 ; 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 and Extreme poverty Z59.5 [place] [id number] [place] [address] 44537- 8328 Feb, Acute nasopharyngitis J00 [place] [id number] [place] [address] 58521- 5159 Feb, Dental examination Z01.20 [place] [id number] [place] [address] 38860- 7175 21 Dec, 2016 Dental cavities K02.9 and Chronic periodontitis, unspecified K05.30 [place] [id number] [place] [address] 79929- 8280 13 Feb, 2016 Low back pain M54.5 and Extreme poverty Z59.5 [place] [id number] [place] [address] 60471- 6319 08 Feb, 2016 [place] [address] 80446- 2070 05 Feb, 2016 Routine gynecological examination V72.31 ; Breast cancer screening Z12.39 and Herpes simplex type 1 infection B00.9 [place] [address] 47166- 8066 02 Feb, 2016 Diabetes E11.9 [place] [id number] [place] [address] 32496- 2916 Feb, Encounter for dental examination and cleaning without abnormal findings Z01.20 [place] [id number] [place] [address] 93581- 1840 22 Jan, 2016 Hyperlipidemia, unspecified E78.5 [place] [id number] [place] [address] 15711- 9452 22 Jan, 2016 Bipolar 1 disorder F31.9 ; 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 and Extreme poverty Z59.5 [place] [id number] [place] [address] 98915- 5143 18 Jan, 2016 Diabetes E11.9 [place] [id number] [place] [address] 81840- 5781 17 Jan, 2016 Diabetes E11.9 [place] [id number] [place] [address] 59512- 2416 14 Dec, 2015 Bipolar 1 disorder F31.9 ; 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 and Extreme poverty Z59.5 [place] [id number] [place] [address] 04203- 4429 13 Dec, 2015 Bipolar disorder, current episode mixed, unspecified F31.60 and 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 [facility] [address] [place] [address] 04013- 6104 16 Nov, 2015 Bipolar 1 disorder F31.9 ; 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 ; Extreme poverty Z59.5 and Non compliance with medical treatment Z91.19 [facility] [address] [place] [address] 59163- 1824 Oct, [facility] [id number] [place] [address] 34218- 9523 Oct, Dental caries K02.9 [facility] [id number] [place] [address] 84511- 6550 Oct, Low back pain M54.5 and Other chronic pain G89.29 [place] [id number] [place] [address] 01384- 5251 Oct, Bipolar 1 disorder F31.9 ; 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 ; Extreme poverty Z59.5 and Non compliance with medical treatment Z91.19 [place] [address] [place] [address] 08243- 5237 Oct, [place] [id number] [place] [address] 75834- 6771 Oct, [place] [id number] [place] [address] 10406- 5443 Oct, Dental examination Z01.20 [place] [id number] [place] [address] 92064- 3778 Oct, Bipolar 1 disorder F31.9 ; 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 ; Extreme poverty Z59.5 and Non compliance with medical treatment Z91.19 [place] [id number] [place] [address] 91941- 8094 Oct, [place] [id number] [place] [address] 59902- 3428 Sep, Type 2 diabetes mellitus with complication E11.8 [place] [address] [place] [address]- 5851 Sep, Bipolar disorder, current episode mixed, unspecified F31.60 [place] [address] [place] [address] 27115- 5558 Sep, Bipolar disorder, current episode mixed, unspecified F31.60 [place] [address] [place] [address] 33794- 7539 Sep, Bipolar disorder, in partial remission, most recent episode manic F31.73 ; 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 ; Extreme poverty Z59.5 and Non compliance with medical treatment Z91.19 [place] [address] [place] [address] 09235- 6843 Aug, Bipolar disorder, in partial remission, most recent episode manic F31.73 ; 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 ; Extreme poverty Z59.5 and Non compliance with medical treatment Z91.19 [place] [address] [place] [address] 58958- 4639 Aug, Bipolar disorder, in partial remission, most recent episode manic F31.73 ; 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 ; Extreme poverty Z59.5 and Non compliance with medical treatment Z91.19 [place] [address] [place] [address] 75132- 9118 Aug, [place] [address] [place] [address] 99158- 1306 July, Bipolar disorder, in partial remission, most recent episode manic F31.73 ; 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 ; Extreme poverty Z59.5 and Non compliance with medical treatment Z91.19 [place] [address] [place] [address] 21307- 9109 July, Bipolar disorder, current episode mixed, unspecified F31.60 [place] [address] [address]- 4444 July, Bipolar disorder, in partial remission, most recent episode manic F31.73 ; 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 ; Extreme poverty Z59.5 and Non compliance with medical treatment Z91.19 [place] [address] [place] [address] 99121- 9451 July, 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 and Chronic pain G89.29 [facility] [address] [place] [address] 18266- 9454 Jun, 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 and Bipolar 1 disorder F31.9 [place] [id number] [place] [address] 35788- 0352 Jun, [place] [id number] [place] [address] 19529- 5784 Jun, [place] [id number] [place] [address] 15542- 3005 Jun, [place] [id number] [place] [address] 71672- 9931 Jun, Bipolar disorder, in partial remission, most recent episode manic F31.73 ; 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 and Non compliance with medical treatment Z91.19 [place] [address] [place] [address] 56408- 9710 May, Bipolar disorder, in partial remission, most recent episode manic F31.73 ; 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 and Non compliance with medical treatment Z91.19 [place] [address] [place] [address] 68203- 5033 May, Bipolar disorder, in partial remission, most recent episode manic F31.73 [place] [id number] [place] [address] 25652- 2673 May, Diabetes E11.9 and Chronic pain G89.29 [place] [address] [place] [address] 62002- 2003 14 May, 2015 [place] [id number] [place] [address] 89365- 2295 May, Bipolar disorder, in partial remission, most recent episode manic F31.73 ; Non compliance with medical treatment Z91.19 and 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 [place] [id number] [place] [address] 12627- 6242 May, Type 2 diabetes mellitus with complication E11.8 and Back pain M54.9 [place] [id number] [place] [address] 56905- 8864 May, Bipolar disorder, in partial remission, most recent episode manic F31.73 and 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 [place] [address] 10365- 4039 Apr, [place] [address] 03789- 0099 Apr, [address] 84458- 3618 Apr, [place] [id number] [place] [address] 35797- 1623 Apr, Diabetes E11.9 ; Irritable bowel syndrome with diarrhea K58.0 and Lumbar radiculopathy M54.16 [place] [id number] [place] [address] 07597- 7797 Apr, Breast screening Z12.39 [place] [id number] [place] [address] 23180- 1569 Apr, Bipolar disorder, in partial remission, most recent episode manic F31.73 ; Non compliance with medical treatment Z91.19 and 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 [place] [id number] [place] [address] 38931- 2945 Mar, Edema, unspecified type R60.9 and Type 2 diabetes mellitus with complication E11.8 [place] [address] [id number] [place] [address] 00194- 3566 Mar, Bipolar disorder, in partial remission, most recent episode manic F31.73 ; Non compliance with medical treatment Z91.19 ; 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 and Extreme poverty Z59.5 [place] [id number] [place] [address] 06813- 5127 14 Mar, 2015 Bipolar disorder, current episode mixed, unspecified F31.60 ; 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 ; Extreme poverty Z59.5 and Generalized anxiety disorder F41.1 [place] [id number] [place] [address] 63388- 2475 12 Mar, 2015 Bipolar disorder, in partial remission, most recent episode manic F31.73 ; 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 and Extreme poverty Z59.5 [place] [id number] [place] [address] 28530- 0984 Feb, Bipolar disorder, in partial remission, most recent episode manic F31.73 ; 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 and Extreme poverty Z59.5 [place] [id number] [place] [address] 38653- 8717 Feb, Bipolar disorder, in partial remission, most recent episode manic F31.73 ; 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 and Extreme poverty Z59.5 [place] [id number] [place] [address] 61635- 4364 Feb, [place] [id number] [place] [address] 57983- 6310 Jan, Type 2 diabetes mellitus with complication E11.8 and Petechiae R23.3 [place] [address] [place] [address] 01084- 9950 Jan, Type 2 diabetes mellitus with complication E11.8 ; Edema, unspecified R60.9 ; Petechiae R23.3 and Diabetes E11.9 [place] [id number] [place] [address] 38999- 0370 Jan, Bipolar disorder, in partial remission, most recent episode manic F31.73 ; 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 and Extreme poverty Z59.5 [place] [id number] [place] [address] 88730- 0874 Jan, Bipolar disorder, in partial remission, most recent episode manic F31.73 ; 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 and Extreme poverty Z59.5 [place] [id number] [place] [address] 07056- 0232 Dec, Bipolar disorder, in partial remission, most recent episode manic F31.73 [place] [address] 24769- 1816 Dec, Edema, due to unspecified malnutrition type, unspecified edema R60.9 and Essential hypertension I10 [address] 96569- 8809 Dec, Bipolar disorder, in partial remission, most recent episode manic F31.73 [place] [address] 71128- 0913 Nov, Bipolar I disorder, most recent episode (or current) mixed, unspecified 296.60 [place] [address] 73925- 1232 Nov, Stress incontinence, female 625.6 ; Back pain 724.5 and Leg pain 729.5 [place] [id number] [place] [address] 20086- 1330 Nov, Generalized anxiety disorder 300.02 and Bipolar II disorder 296.89 [place] [address] 64203- 7242 Nov, Bipolar I disorder, most recent episode (or current) mixed, unspecified 296.60 [place] [address] 90150- 8267 Oct, [place] [id number] [place] [address] 83674- 0949 Oct, [place] [address] 94120- 8384 Oct, [facility] [id number] [address]- 3714 Oct, Bipolar I disorder, most recent episode (or current) mixed, unspecified 296.60 [facility] [address] [address]- 2826 Sep, Diabetes 250.00 [facility] [address] [address]- 2486 Sep, Bipolar I disorder, most recent episode (or current) mixed, unspecified 296.60 [facility] [address] [address]- 9745 Sep, [facility] [address] [address]- 3935 Sep, [facility] [address] [address]- 7510 Sep, Bipolar I disorder, most recent episode (or current) mixed, unspecified 296.60 [facility] [address] [address]- 4260 Sep, Bipolar I disorder, most recent episode (or current) mixed, unspecified 296.60 [facility] [address] [address]- 8614 Sep, [facility] [id number] 6248 Sep, Anxiety 300.00 ; Diabetes 250.00 and Hyperlipidemia 272.4 [facility] [address] [address]- 4257 Aug, [facility] [address] 7664 Aug, [facility] [address] [address] 0597 Aug, [facility] [id number] 3593 Aug, Bipolar I disorder, most recent episode (or current) mixed, unspecified 296.60 [facility] [address] [place] [address] 89671- 0323 Aug, Generalized anxiety disorder 300.02 and Bipolar II disorder 296.89 [facility] [address] [address]- 0491 July, Bipolar I disorder, most recent episode (or current) mixed, unspecified 296.60 [facility] [id number] [place] [address]73- 2236 July, Cough 786.2 [facility] [id number] [place] [address] [id number]- 0713 July, Bipolar I disorder, most recent episode (or current) mixed, unspecified 296.60 [facility] [id number] [place] [address] 29393- 6158 Jun, Diabetes 250.00 [facility] [id number] [address] 1068 Jun, [facility] [id number] [place] [address] 75639- 9960 Jun, [facility] [id number] [address] May, [facility] [id number] [address] 8347 May, [facility] [id number] [address] 2214 May, [facility] [id number] [address] 6927 May, [facility] [id number] [id number] [address]38 May, [facility] [id number] [address] 48[address] May, [facility] [place] [facility] [address] [id number] [place] [address] Apr, 2014 [facility] [place] [facility] [address] [id number] [place] [address]- 9826 Apr, 2014 [facility] [place] [facility] [address] [id number] [place] [address]- 2546 Apr, 2014 [facility] [place] [facility] [address] [id number] [place] [address]- 6556 Apr, 2014 [facility] [place] [facility] [address] [id number] [place] [address]- 3598 Apr, 2014 [facility] [place] [facility] [address] [id number] [place] [address]- 0256 Apr, 2014 [facility] [place] [facility] [address] [id number] [place] [address]- 6988 Apr, [facility] [place] [facility] [address] [id number] [place] [address]- 6122 Apr, [facility] [place] [facility] [address] [id number] [place] [address]- 3350 Mar, [facility] [place] [facility] [address] [id number] [place] [address]- 4185 Mar, [facility] [place] [facility] [address] [id number] [place] [address]- 4906 Mar, [facility] [place] [facility] [address] [id number] [place] [address]- 8636 Mar, [facility] [place] [facility] [address] [id number] [place] [address] 2545 Mar, [facility] [place] [facility] [address] [id number] [place] [address]- 0254 Mar, [facility] [place] [facility] [address] [id number] [place] [address]- 7117 Mar, [facility] [place] [facility] [address] [id number] [place] [address]- 0008 Mar, [facility] [place] [facility] [address] [id number] [place] [address]- 3469 Feb, [facility] [place] [facility] [address] [id number] [place] [address]- 6828 Feb, [facility] [place] [facility] [address] [id number] [place] [address]- 0874 Feb, [facility] [place] [facility] [address] [id number] [place] [address]- 8062 Feb, [facility] [place] [facility] [address] [id number] [place] [address]- 7313 Feb, [facility] [place] [facility] [address] [id number] [place] [address]- 3193 Feb, [facility] [place] [facility] [address] [id number] [place] [address]- 6034 Feb, [facility] [place] [facility] [address] [id number] [place] [address]- 2270 Feb, [facility] [place] [facility] [address] [id number] [place] [address]- 2170 Feb, [facility] [place] [facility] [address] [id number] [place] [address]- 9635 Feb, [facility] [place] [facility] [address] [id number] [place] [address]- 4361 Jan, [facility] [place] [facility] [address] [id number], [place] [address]- 8427 Jan, [facility] [place] [facility] [address] [id number] [place] [address]- 9485 Jan, [facility] [place] [facility] [address] [id number] [place] [address]- 7898 Jan, [facility] [place] [facility] [address] [id number] [place] [address]- 6070 Jan, [facility] [place] [facility] [address] [id number] [place] [address]- 5444 Jan, [facility] [place] [facility] [address] [id number] [place] [address]- 3619 Jan, [facility] [place] [facility] [address] [id number] [place] [address]- 6780 Jan, [facility] [place] [facility] [address] [id number] [place] [address]- 9046 Jan, [facility] [place] [facility] [address] [id number] [place] [address]- 8386 Jan, [facility] [place] [facility] [address] [id number] [place] [address]- 1160 Jan, [facility] [place] [facility] [address] [id number] [place] [address]- 2460 Jan, [facility] [place] [facility] [address] [id number] [place] [address]- 5209 Jan, [facility] [place] [facility] [address] [id number] [place] [address]- 1718 Jan, [facility] [place] [facility] [address] [id number] [place] [address]- 3320 Jan, [facility] [place] [facility] [address] [id number] [place] [address]- 6339 Dec, [facility] [place] [facility] [address] [id number] [place] [address]- 4273 Dec, [facility] [place] [facility] [address] [id number] [place] [address]- 9363 Dec, [facility] [place] [facility] [address] [id number] [place] [address]- 8663 Dec, [facility] [place] [facility] [address] [id number] [place] [address] Dec, [facility] [place] [facility] [address] [id number] [place] [address]- 3671 09 Dec, 2013 [facility] [place] [facility] [address] [id number] [place] [address]- 4153 07 Dec, 2013 [facility] [place] [facility] [address] [id number] [place] [address]- 2766 07 Dec, 2013 [facility] [place] [facility] [address] [id number] [place] [address]- 1729 25 Sep, 2013 [facility] [place] [facility] [address] [id number] [place] [address]- 3868 25 Sep, 2013 [facility] [place] [facility] [address] [id number] [place] [address]- 0890 10 Sep, 2013 [facility] [place] [facility] [address] [id number] [place] [address]- 3366 10 Nov, 2013 [facility] [place] [facility] [address] [id number] [place] [address]- 5321 08 Sep, 2013 [facility] [place] [facility] [address] [id number] [address]- 0254 08 Sep, 2013 [facility] [place] [facility] [address] [id number] [place] [address]- 5205 08 Sep, 2013 [facility] [place] [facility] [address] [id number] [place] [address]- 0057 08 Sep, 2013 [facility] [place] [facility] [address] [id number] [address]- 8605 08 Sep, 2013 [facility] [place] [facility] [address] [id number] [address]- 2076 08 Sep, 2013 [facility] [place] [facility] [address] [id number], [place] [address]- 4116 04 Sep, 2013 [facility] [place] [facility] [address] [id number], [place] [address]- 3431 04 Sep, 2013 [facility] [place] [facility] [address] [id number], [place] [address]- 6632 03 Sep, 2013 [facility] [place] [facility] [address] [id number] [place] [address]- 5466 Nov, [facility] [place] [facility] [address] [id number] [place] [address]- 6775 Nov, [facility] [place] [facility] [address] [id number] [place] [address]- 2611 Oct, [facility] [place] [facility] [address] [id number] [place] [address]- 3403 Oct, [facility] [place] [facility] [address] [id number] [place] [address]- 5286 Oct, [facility] [place] [facility] [address] [id number] [place] [address]- 9238 Oct, [facility] [place] [facility] [address] [id number] [place] [address]- 9558 Oct, [facility] [place] [facility] [address] [id number] [place] [address]- 5961 Oct, [facility] [place] [facility] [address] [id number] [place] [address]- 1875 Oct, [facility] [place] [facility] [address] [id number] [place] [address]- 1678 Oct, [facility] [place] [facility] [address] [id number] [place] [address]- 7803 Oct, [facility] [place] [facility] [address] [id number] [place] [address]- 9587 Oct, [facility] [place] [facility] [address] [id number] [place] [address]- 1461 Oct, [facility] [place] [facility] [address] [id number] [place] [address]- 3514 Oct, [facility] [place] [facility] [address] [id number] [place] [address]- 8210 Oct, [facility] [place] [facility] [address] [id number] [place] [address]- 0641 Oct, [facility] [place] [facility] [address] [id number] [place] [address]- 9965 Sep, 2013 [facility] [place] [facility] [address] [id number] [place] [address]- 0232 Sep, [facility] [place] [facility] [address] [id number] [place] [address]- 6514 Sep, [facility] [place] [facility] [address] [id number] [place] [address]- 8869 Sep, [facility] [place] [facility] [address] [id number] [place] [address]- 3402 Sep, [facility] [place] [facility] [address] [id number] [place] [address]- 9566 Sep, [facility] [place] [facility] [address] [id number] [place] [address]- 9166 Sep, [facility] [place] [facility] [address] [id number] [place] [address]- 1318 Sep, [facility] [place] [facility] [address] [id number] [place] [address]- 8621 Aug, [facility] [place] [facility] [address] [id number] [place] [address]- 9519 Aug, [facility] [place] [facility] [address] [id number] [place] [address]- 6026 Aug, [facility] [place] [facility] [address] [id number] [place] [address]- 5850 Aug, [facility] [place] [facility] [address] [id number] [place] [address]- 2220 Aug, [facility] [place] [facility] [address] [id number] [place] [address]- 5399 Aug, [facility] [place] [facility] [address] [id number] [place] [address]- 8934 Aug, [facility] [place] [facility] [address] [id number] [place] [address]- 5201 Aug, [facility] [address] [id number] [place] [address]- 2980 July, [facility] [place] [facility] [address] [id number] [place] [address]- 5958 July, [facility] [place] [facility] [address] [id number] [place] [address]- 0827 July, [facility] [place] [facility] [address] [id number] [place] [address]- 0965 July, [facility] [place] [facility] [address] [id number] [place] [address]- 2708 July, [facility] [place] [facility] [address] [id number] [place] [address]- 1359 July, [facility] [place] [facility] [address] [id number] [place] [address]- 0585 July, [facility] [place] [facility] [address] [id number] [place] [address]- 0049 July, [facility] [place] [facility] [address] [id number] [place] [address]- 3241 Jun, [facility] [place] [facility] [address] [id number] [place] [address]- 2346 Jun, [facility] [place] [facility] [address] [id number] [place] [address]- 9950 Jun, [facility] [place] [facility] [address] [id number] [place] [address]- 4726 Jun, [facility] [place] [facility] [address] [id number] [place] [address]- 7079 Jun, [facility] [place] [facility] [address] [id number] [place] [address]- 3078 Jun, [facility] [place] [facility] [address] [id number] [place] [address]- 7596 Jun, [facility] [place] [facility] [address] [id number] [place] [address]- 7782 15 Jun, 2013 [facility] [address] [id number] [place] [address]- 1988 Jun, [facility] [place] [facility] [address] [id number] [place] [address]- 0956 Jun, [facility] [address] [id number] [place] [address]- 8944 Jun, [facility] [place] [facility] [address] [id number] [place] [address]- 9642 Jun, [facility] [place] [facility] [address] [id number] [place] [address]- 0559 May, [facility] [place] [facility] [address] [id number] [place] [address]- 5226 May, [facility] [place] [facility] [address] [id number] [place] [address]- 5263 May, [facility] [address] [id number] [place] [address]- 7193 May, [facility] [place] [facility] [address] [id number] [place] [address]- 0067 May, [facility] [address] [id number] [place] [address]- 3603 May, [facility] [place] [facility] [address] [id number] [place] [address]- 8597 May, [facility] [place] [facility] [address] [id number] [place] [address]- 1151 May, [facility] [place] [facility] [address] [id number] [place] [address]- 8876 May, [facility] [place] [facility] [address] [id number] [place] [address]- 6235 May, [facility] [place] [facility] [address] [id number] [place] 5433 May, [facility] [place] [facility] [address] [id number] [place] [address]- 9253 May, [facility] [place] [facility] [address] [id number] [place] [address]- 9182 May, [facility] [place] [facility] [address] [id number] [place] [address]- 3965 May, [facility] [place] [facility] [address] [id number] [place] [address]- 0928 Apr, [facility] [place] [facility] [address] [id number] [place] [address]- 8472 Apr, [facility] [place] [facility] [address] [id number] [place] [address]- 1464 Apr, [facility] [place] [facility] [address] [id number] [place] [address]- 6559 Apr, [facility] [place] [facility] [address] [id number] [place] [address]- 5730 Apr, [facility] [place] [facility] [address] [id number] [place] [address]- 1832 Apr, [facility] [place] [facility] [address] [id number] [place] [address]- 3182 Mar, [facility] [place] [facility] [address] [id number] [place] [address]- 5377 Mar, [facility] [place] [facility] [address] [id number] [place] [address]- 4563 Mar, [facility] [place] [facility] [address] [id number] [place] [address]- 4884 Mar, [facility] [place] [facility] [address] [id number] [place] [address]- 6432 Mar, [facility] [place] [facility] [address] [id number] [place] [address]- 5979 Mar, [facility] [place] [facility] [address] [id number] [place] [address]- 5218 Mar, [facility] [address] [id number] [place] [address]- 1392 Mar, [facility] [address] [id number] [place] [address]- 4542 Mar, [facility] [address] [id number] [place] [address]- 8938 Mar, [facility] [address] [id number] [place] [address]- 8534 Mar, [facility] [address] [id number] [place] [address]- 3885 Mar, [facility] [address] [id number] [place] [address]- 8800 Mar, [facility] [address] [id number] [place] [address]- 7787 Mar, [facility] [address] [id number] [place] [address]- 4408 Feb, [facility] [address] [id number] [place] [address]- 4878 Feb, [facility] [address] [id number] [place] [address]- 7583 Feb, [facility] [address] [id number] [place] [address] 2549 Feb, [facility] [address] [id number] [place] [address]- 2542 Feb, [facility] [place] [facility] [address] [id number] [place] [address]- 8239 Feb, [facility] [address] [id number] [place] [address]- 5499 Feb, [facility] [address] [id number] [place] [address]- 0565 Feb, [facility] [address] [id number] [place] [address]- 5507 Feb, 2012 [facility] [place] [facility] [address] [id number] [place] [address]- 2562 Feb, 2012 [facility] [place] [facility] [address] [id number] [place] [address]- 7050 Feb, 2012 [facility] [place] [facility] [address] [id number] [place] [address]- 5441 Feb, 2012 [facility] [address] [id number] [place] [address]- 6729 Feb, 2012 [facility] [place] [facility] [address] [id number] [place] [address]- 7856 Feb, [facility] [place] [facility] [address] [facility] [id number] [place] [address]- 1272 Feb, [facility] [place] [facility] [address] [id number], [place] [address]- 0768 Feb, [facility] [place] [facility] [address] [id number], [place] [address]- 3118 24 Dec, 2012 [facility] [place] [facility] [address] [id number], [place] [address]- 6831 24 Dec, 2012 [facility] [place] [facility] [address] [facility] [id number], [place] [address]- 5099 16 Dec, 2012 [facility] [place] [facility] [address] [id number], [place] [address]- 3167 16 Dec, 2012 [facility] [place] [facility] [address] [id number], [place] [address]- 3891 16 Dec, 2012 [facility] [place] [facility] [address] [id number], [place] [address]- 9201 16 Dec, 2012 [facility] [place] [facility] [address] [facility] [id number], [place] [address]- 8749 14 Dec, 2012 [facility] [place] [facility] [address] [id number], [place] [address]- 9409 14 Dec, 2012 [facility] [place] [facility] [address] [id number] [place] [address]- 9096 10 Dec, 2012 [facility] [place] [facility] [address] [id number] [place] [address]- 2336 10 Dec, 2012 [facility] [place] [facility] [address] [id number] [place] [address]199 10 Dec, 2012 [facility] [place] [facility] [address] [id number] [place] [address] 10 Dec, 2012 [facility] [place] [facility] [address] [id number] [place] [address] 03 Dec, 2012 [facility] [place] [facility] [address] [id number] [place] [address] 2973 25 Nov, 2012 [facility] [place] [facility] [address] [id number] [place] [address] 2505 20 Nov, 2012 [facility] [place] [facility] [address] [id number] [place] [address] 18 Nov, 2012 [facility] [place] [facility] [address] [id number] [place] [address] 7961 16 Nov, 2012 [facility] [place] [facility] [address] [facility] [id number] [place] [address] 89[address] 12 Nov, 2012 [facility] [place] [facility] [address] [id number] [place] [address] 3977 11 Nov, 2012 [facility] [place] [facility] [address] [id number] [place] [address] 6861 05 Nov, 2012 [facility] [place] [facility] [address] [id number] [place] [address] 7086 15 Oct, 2012 [facility] [place] [facility] [address] [id number] [place] [address] Oct, [facility] [place] [facility] [address] [facility] [id number] [place] [address]- 3694 24 Sep, 2012 [facility] [place] [facility] [address] [id number] [place] [address] 23 Sep, 2012 [facility] [place] [facility] [address] [id number] [place] [address] 3988 Sep, [facility] [place] [facility] [address] [id number] [place] [address] 17 Sep, 2012 [facility] [place] [facility] [address] [id number] [place] [address] 7330 15 Sep, 2012 [facility] [place] [facility] [address] [id number] [place] [address]- 2973 Sep, [facility] [place] [facility] [address] [id number] [place] [address] 0175 Sep, [facility] [place] [facility] [address] [id number] [place] [address] 1750 Aug, [facility] [place] [facility] [address] [id number] [place] [address] 4055 Aug, [facility] [place] [facility] [address] [id number] [place] [address] 5039 16 Aug, 2012 [facility] [place] [facility] [address] [id number] [place] [address]14 Aug, [facility] [place] [facility] [address] [id number] [place] [address] Aug, [facility] [place] [facility] [address] [id number] [place] [address] 5439 Aug, [facility] [place] [facility] [address] [id number] [place] [address] 4450 Aug, [facility] [place] [facility] [address] [id number] [place] [address] 4198 Aug, [facility] [place] [facility] [address] [id number] [place] [address] 3340 July, [facility] [place] [facility] [address] [id number] [place] [address] 4920 July, [facility] [address] [id number] [place] [address] 1558 July, [facility] [address] [id number] [place] [id number] July, [facility] [address] [id number] [place] [address] 7990 July, [facility] [address] [id number] [place] [address] 5930 Jun, [facility] [address] [id number] [place] [address] 475[address] May, [facility] [address] [id number] [place] [address]326 May, [facility] [address] [id number] [place] [address] 7826 May, [facility] [address] [id number] [place] [address] 0753 Apr, [facility] [address] [id number] [place] [address] 7904 Apr, [facility] [address] [id number] [place] [address] 7806 Apr, [facility] [address] [id number] [place] [address] 1606 Mar, [facility] [place] [facility] [address] [id number] [place] [address] 9722 Mar, [facility] [place] [facility] [address] [id number] [place] [address] 5420 Mar, [facility] [place] [facility] [address] [id number] [place] [address] Mar, [facility] [place] [facility] [address] [id number] [place] [address] 9688 Mar, [facility] [address] [id number] [place] [address] 0635 Mar, [facility] [address] [id number] [place] [address] 5090 Mar, [facility] [place] [facility] [address] [id number] [place] [address] 5754 Feb, [facility] [address] [id number] [place] [address] 0962 Feb, [facility] [place] [facility] [address] [id number] [place] [address] 1904 Feb, [facility] [address] [id number] [place] [address] 7072 Feb, [facility] [place] [facility] [address] [id number] [place] [address] 4628 Feb, [facility] [address] [id number] [place] [address] Feb, [facility] [place] [facility] [address] [id number] [place] [address] 9958 Feb, [facility] [place] [facility] [address] [id number] [place] [address] Feb, [facility] [place] [facility] [address] [facility] [id number] [place] [address] 1772 Jan, [facility] [place] [facility] [address] [id number] [place] [address] 6636 Jan, [facility] [place] [facility] [address] [id number] [place] [address] 4734 Jan, [facility] [place] [facility] [address] [id number] [place] [address] 7229 Jan, [facility] [place] [facility] [address] [id number] [place] [address] 4648 Jan, [facility] [place] [facility] [address] [id number] [place] [address]- 8737 Jan, [facility] [place] [facility] [address] [id number] [place] [address] 0530 Jan, [facility] [place] [facility] [address] [id number] [place] [address]- 8448 Jan, [facility] [place] [facility] [address] [id number] [place] [address] 3618 Jan, [facility] [place] [facility] [address] [id number] [place] [address] 4349 Jan, [facility] [place] [facility] [address] [id number] [place] [address]- 2637 Jan, [facility] [place] [facility] [address] [id number] [place] [address] 0574 Jan, [facility] [place] [facility] [address] [id number] [place] [address]- 1740 Jan, [facility] [place] [facility] [address] [id number] [place] [address]- 2402 Jan, [facility] [place] [facility] [address] [id number] [place] [address]- 4977 Jan, [facility] [place] [facility] [address] [id number] [place] [address]- 9864 Jan, [facility] [place] [facility] [address] [facility] [id number] [place] [address] Dec, [facility] [place] [facility] [address] [id number] [address] Dec, [facility] [place] [facility] [address] [id number] [place] [address] Dec, [facility] [place] [facility] [address] [id number] [place] [address] Dec, [facility] [place] [facility] [address] [id number] [place] [address]76 Dec, [facility] [place] [facility] [address] [id number] [place] [address] Dec, [facility] [place] [facility] [address] [id number] [place] [address] Dec, [facility] [place] [facility] [address] [id number] [place] [address] Dec, [facility] [place] [facility] [address] [id number] [place] [address] Dec, [facility] [place] [facility] [address] [id number] [place] [address] 05 Dec, 2011 [facility] [place] [facility] [address] [id number] [place] [address] 18 Nov, 2011 [facility] [place] [facility] [address] [id number] [place] [address] 13 Nov, 2011 [facility] [place] [facility] [address] [id number] [place] [address]66 24 Oct, 2011 [facility] [place] [facility] [address] [id number] [place] [address] Oct, [facility] [place] [facility] [address] [id number] [place] [address] Oct, [facility] [place] [facility] [address] [id number] [place] [address] 1681 Oct, [facility] [place] [facility] [address] [id number] [place] [address]89 Oct, [facility] [place] [facility] [address] [id number] [place] [address]342 Oct, [facility] [place] [facility] [address] [id number] [place] [address]17 Oct, [facility] [place] [facility] [address] [id number] [place] [address] Sep, [facility] [place] [facility] [address] [id number] [place] [address] Aug, [facility] [place] [facility] [address] [id number] [place] [address] Aug, [facility] [address] [id number] [place] [address] Aug, [facility] [place] [facility] [address] [id number] [place] [address] 2546 Aug, [facility] [address] [id number] [place] [address] Aug, [facility] [address] [id number] [place] [address] July, [facility] [address] [id number] [place] [address] 8137 July, [facility] [address] [id number] [place] [address]266 July, [facility] [address] [id number] [place] [address] Jun, [facility] [address] [id number] [place] [address] Jun, [facility] [address] [id number] [place] [address] Jun, [facility] [address] [id number] [place] [address] Jun, [facility] [address] [id number] [place] [address] May, [facility] [address] [id number] [place] [address]94 May, [facility] [place] [facility] [address] [id number] [place] [address]266 29 May, [address] [facility] [place] [facility] [address] [id number] [place] [address]183 May, [facility] [place] [facility] [address] [id number] [place] [address] May, [facility] [place] [facility] [address] [id number] [place] [address]32 22 May, 2011 [facility] [place] [facility] [address] [id number] [place] [address] May, [facility] [place] [facility] [address] [id number] [place] [address] 1345 19 May, 2011 [facility] [place] [facility] [address] [id number] [place] [address] 8073 08 May, 2011 [facility] [place] [facility] [address] [id number] [place] [address] 05 May, 2011 [facility] [place] [facility] [address] [id number] [place] [address] 6265 May, [facility] [place] [facility] [address] [id number] [place] [address]658 May, [facility] [place] [facility] [address] [id number] [place] [address] Mar, [facility] [place] [facility] [address] [id number] [place] [address] Mar, [facility] [place] [facility] [address] [id number] [place] [address] 7342 28 Feb, 2011 [facility] [place] [facility] [address] [id number] [place] [address] 8425 Feb, [facility] [place] [facility] [address] [id number] [place] [address] 4674 20 Feb, 2011 [facility] [place] [facility] [address] [id number] [place] [address] 0[address] 15 Feb, 2011 [facility] [place] [facility] [address] [id number] [place] [address] 3[address] 13 Feb, 2011 [facility] [place] [facility] [address] [id number] [place] [address] 13 Feb, 2011 [facility] [place] [facility] [address] [id number], [place] [address] 13 Feb, 2011 [facility] [place] [facility] [address] [id number] [place] [address] 2424 Jan, [facility] [place] [facility] [address] [id number] [place] [address] Jan, [facility] [place] [facility] [address] [id number] [place] [address] 3943 Jan, [facility] [place] [facility] [address] [id number] [place] [address] 2211 17 Jan, 2011 [facility] [place] [facility] [id number] [place] [address], [place] [address] Jan, [facility] [place] [facility] [address] [id number] [place] [address] 2311 Jan, [facility] [place] [facility] [address] [facility] [id number] [place] [address] 4902 Dec, [facility] [place] [facility] [address] [id number] [place] [address] 3489 Dec, [facility] [place] [facility] [address] [facility] [id number] [place] [address] 1514 Dec, [facility] [place] [facility] [address] [facility] [id number] [place] [address] 5495 July, [facility] [place] [facility] [address] [id number], [place] [address] July, [facility] [place] [facility] [address] [id number], [place] [address] 4523 08 Feb, 2010 [facility] [place] [facility] [address] [id number] [place] [address] 3750 18 Jan, 2010 [facility] [place] [facility] [address] [facility] [id number] [place] [address]- 9446 Dec, [facility] [place] [facility] [address] [facility] [id number], [place] [address] 24[address] Dec, [facility] [place] [facility] [address] [id number] [place] [address] 7108 15 Sep, 2009 [facility] [place] [facility] [address] [id number] [place] [address] Aug, [facility] [place] [facility] [address] [id number] [place] [address]- 9656 Jun, [facility] [place] [facility] [address] [id number] [place] [address]- 4855 Jun, [facility] [place] [facility] [address] [id number] [place] [address]- 5086 Jan, [facility] [place] [facility] [address] [id number] [place] [address]- 7840 Jan, [facility] [place] [facility] [address] [facility] [id number] [place] [address]- 7930 Jan, [facility] [place] [facility] [address] [id number] [place] [address]- 5226 Jan, [facility] [place] [facility] [address] [id number] [place] [address]- 6934 Dec, [facility] [place] [facility] [address] [id number] [place] [address]- 8254 Dec, [facility] [place] [facility] [address] [facility] [id number], [place] [address]290 Dec, [facility] [place] [facility] [address] [id number], [place] [address]- 5942 Nov, [facility] [place] [facility] [address] [id number], [place] [address]- 3178 July, [facility] [place] [facility] [address] [id number] [place] [address]- 0261 May, [facility] [place] [facility] [address] [id number], [place] [address]- 3432 Apr, [facility] [place] [facility] [address] [id number], [place] [address]- [address] Feb, [facility] [address] [facility] [id number] [place] [address]609 Dec, IMMUNIZATIONS No Known Immunizations SOCIAL HISTORY Never Assessed REASON FOR VISIT PLAN OF CARE VITAL SIGNS MEDICATIONS Unknown [...]
[2017-09-01] MEDS ORDERED: NAPR-915 PO (18:37)
[2017-09-01] MEDS ORDERED: LIDO15SO2 MM (18:37)
[2017-09-01] MEDS ORDERED: AMOX-358 PO (18:37)
--- NOTE | 2017-09-01 18:37 | ED EENT ---
History of Present Illness General Chief Complaint: Dental Problems/Pain Stated Complaint: TEETH/GUM PROBLEMS R SIDE Source: patient Exam Limitations: no limitations History of Present Illness Date Seen by Provider: Sep 01, 2017 Time Seen by Provider: 18:30 Initial Comments C/O DENTAL PAIN ON RIGHT UPPER AND LOWER MOLAR AREAS X 2 WEEKS OR MORE PT HAD WISDOM TEETH REMOVED 1990 AND ADJACENT MOLARS ALSO REMOVED YEARS AGO HAS HAD MULTIPLE OTHER TEETH REMOVED WELL--LAST TIME WAS IN 2016--[facility]RON[facility] D[facility]AL PROBLEMS, BUT HAS NOT FOLLOWED UP WITH DENTIST FOR ROUTINE DENTAL CARE FOR YEARS NO FEVER NO SWELLING TO FACE SYMPTOMS NO DIFFERENT TODAY HAS NOT SOUGHT CARE UNTIL TODAY PCP:[facility] Allergies and Home Medications Allergies Coded Allergies: azithromycin (Unverified Allergy, Unknown, 10/28/13) CHEST PAIN prednisone (Unverified Adverse Reaction, Unknown, RAISES BLOOD SUGAR, ) Home Medications Amoxicillin/Potassium Clav 1 Each Tablet, 1 EACH PO BID Prescribed by: MAR MANE on 09/01/171836 Aspirin 81 Mg Tabec, 81 MG PO DAILY, (Reported) Cephalexin 500 Mg Capsule, 500 MG PO TID Prescribed by: ANGIE MAS on 06/11/171702 Citalopram Hydrobromide 20 Mg Tablet, 1 EACH PO BID, (Reported) Hum Insulin Nph/Reg Insulin Hm 10 Ml Vial, 110 UNITS SQ BID, (Reported) Lamotrigine 150 Mg Tablet, 150 MG PO DAILY, (Reported) Lidocaine HCl 15 Ml Solution, 15 ML MM Q 1-2 HOURS Prescribed by: MAR MANE on 09/01/171836 Liraglutide 0.6 Mg/0.1 Ml Pen.injctr, 1.8 MG SC HS, (Reported) Losartan Potassium 25 Mg Tablet, 1 EACH PO BID, (Reported) Naproxen 500 Mg Tablet, 500 MG PO BID Prescribed by: MAR MANE on 09/01/171836 Ondansetron 8 Mg Tab.rapdis, 8 MG PO Q6H PRN for NAUSEA/VOMITING-1ST LINE Prescribed by: ANGIE MAS on 06/11/171702 Phenazopyridine HCl 100 Mg Tablet, 100 MG PO Q8H PRN for pain Prescribed by: ANGIE MAS on 06/11/171702 Pioglitazone Hcl 45 Mg Tablet, 45 MG PO DAILY, (Reported) Simvastatin 40 Mg Tablet, 2 TAB PO DAILY, (Reported) Triamcinolone Acet 15 Gm Cr, 15 GM TP BID Prescribed by: SOCO JOAQUIN on 06/14/17 1801 Patient Home Medication List Home Medication List Reviewed: Yes Review of Systems Constitutional: no symptoms reported Mouth: see HPI Throat: no symptoms reported Musculoskeletal: no symptoms reported Skin: no symptoms reported Neurological: No Symptoms Reported Past Drwjmsr-Bizwyb-Hhzhft Hx Patient Social History Alcohol Use: Denies Use Recreational Drug Use: No Smoking Status: Never a Smoker 2nd Hand Smoke Exposure: No Recent Foreign Travel: No Contact w/Someone Who Travel: No Recent Hopitalizations: No Immunizations Up To Date Tetanus Booster (TDap): More than 5yrs PED Vaccines UTD: Yes Date of Pneumonia Vaccine: Mar 29, 2008 Date of Influenza Vaccine: Dec 28, 2016 Seasonal Allergies Seasonal Allergies: Yes Past Medical History Surgeries: Yes (LARRY CARPAL TUNNEL, HERNIA REPAIR, BACK SURGERY 2014; DENTAL EXTRACTIONS) Section, Orthopedic Respiratory: No Cardiac: Yes High Cholesterol Neurological: Yes Headaches /Migraines Reproductive Disorders: No Sexually Transmitted Disease: No HIV/AIDS: No Gastrointestinal: Yes Abdominal Hernia, Irritable Bowel Musculoskeletal: Yes Arthritis, Chronic Back Pain Endocrine: Yes (Type II, 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, Non-Insulin dep HEENT: Yes (DENTAL ISSUSES/EXTRACTIONS) Cancer: No Psychosocial: Yes Anxiety, Bipolar, Personality Disorder, Depression Integumentary: No Blood Disorders: No Adverse Reaction/Blood Tranf: No Family Medical History Alcoholism 19 FATHER Arthritis 19 MOTHER Cataracts 19 MOTHER Diabetes mellitus 19 FATHER 19 MOTHER FH: stroke 19 FATHER Hypercholesterolemia 19 MOTHER Hypertension 19 MOTHER No Family History of: Cardiovascular disease Glaucoma Osteoporosis Prostate cancer No Pertinent Family Hx Physical Exam Vital Signs Vital Signs - First Documented 09/01/17 18:30 Temp 97.0 Pulse 99 Resp 18 B/P (MAP) 145/80 (101) Pulse Ox 97 O2 Delivery Room Air General Appearance: WD/WN, no apparent distress, other (SMILING, DOES NOT APPEAR TO BE IN ANY DISCOMFORT AT THIS TIME) Eyes: bilateral eye PERRL Mouth/Throat: pharynx normal; No excessive drooling, No mandibular swelling, No maxillary swelling, No trismus; other (POOR DENTITION, MULTIPLE MISSING TEETH. SITES OF PAIN /TENDERNESS ARE OVER RIGHT UPPER AND LOWER POSTERIOR MOLAR AREAS--SITES OF PRIOR EXTRACTION SITES. MILD GUM INFLAMMATION, BUT NO EVIDENCE OF ABSCESS, NO SORES, ETC. NO FACIAL SWELLING. 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 Referrals: [facility] (PCP) Primary Care Physician BEVERLY TAO (Family) Primary Care Physician Patient Instructions: Dental Pain (DC) Add. Discharge Instructions: [facility] [place] [facility]LLOW UP WITH [facility] WEEK FOR FURTHER CARE All discharge instructions reviewed with patient and/or family. Voiced understanding. Scripts Naproxen (Naproxen) 500 Mg Tablet 500 MG PO BID, #20 TAB Prov: MAR MANE DO 09/01/17 Lidocaine HCl (Lidocaine HCl Viscous) 15 Ml Solution 15 ML MM Q 1-2 HOURS for Pain, #1 EA Prov: MAR MANE DO 09/01/17 Amoxicillin/Potassium Clav (Augmentin 875-125 Tablet) 1 Each Tablet 1 EACH PO BID for INFECTION, #20 TAB Prov: MAR MANE DO 09/01/17 MAR MANE DO Sep 01, 2017 18:37
--- OUTSIDE RECORDS SUMMARY | 2017-09-01 18:38 | XMS REPORT ---
Author Author ARIAN US Organization 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 Active 730160667 Problem Bipolar 1 disorder F31.9 Active 261935610 Problem Hyperlipidemia, unspecified E78.5 Active 74236359 Problem Type 2 diabetes mellitus with complication E11.8 Active 900790919 Problem Post laminectomy syndrome M96.1 Active 78852197 Problem Eye exam normal Z01.00 Active 012379905 Problem Bipolar disorder, in partial remission, most recent episode manic F31.73 Active 19987924 Problem Extreme poverty Z59.5 Active 72784612 Problem Obesity, unspecified 278.00 Active 295691542 Problem 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 [address] [facility] [id number] [address] Aug, [facility] [id number] [address] July, 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 and Extreme poverty Z59.5 [place] [id number] [place] [address] 62172- 8718 May, Urinary tract infection without hematuria, site unspecified N39.0 [place] [id number] [place] [address] 73451- 9149 May, Bipolar 1 disorder F31.9 ; 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 and Extreme poverty Z59.5 [place] [id number] [place] [address] 30977- 7797 Apr, Diabetes E11.9 and Breast cancer screening Z12.31 [place] [id number] [place] [address] 258065- 2863 20 Apr, 2017 Bipolar 1 disorder F31.9 and 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 [place] [id number] [place] [address] 21503- 6248 Mar, Bipolar 1 disorder F31.9 ; 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 and Extreme poverty Z59.5 [place] [id number] [place] [address] 29650- 7774 Mar, New daily persistent headache G44.52 ; Leg pain 729.5 and History of carpal tunnel release Z98.890 [place] [address] [place] [address] 66753- 0549 Mar, Hyperlipidemia, unspecified E78.5 [place] [id number] [place] [address] 56397- 6532 Mar, Bipolar 1 disorder F31.9 ; 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 and Extreme poverty Z59.5 [place] [id number] [place] [address] 44511- 8593 Feb, Bipolar 1 disorder F31.9 ; 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 and Extreme poverty Z59.5 [place] [id number] [place] [address] 58506- 7332 Feb, Diabetes E11.9 [place] [address] 272385- 7263 Feb, Viral syndrome B34.9 [place] [address] 60690- 7506 Jan, Other viral agents as the cause of diseases classified elsewhere B97.89 and Acute upper respiratory infection, unspecified J06.9 [place] [id number] [place] [address] 55073- 0744 Jan, Bipolar 1 disorder F31.9 and 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 [place] [id number] [place] [address] 72014- 1668 Jan, Bipolar 1 disorder F31.9 ; 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 and Extreme poverty Z59.5 [place] [id number] [place] [address] 98090- 6259 Dec, Diabetes E11.9 [place] [address] 46299- 6948 Dec, Diabetes E11.9 and Encounter for immunization Z23 [place] [id number] [place] [address] 91020- 0729 Dec, Bipolar 1 disorder F31.9 ; 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 and Extreme poverty Z59.5 [place] [id number] [place] [address] 20987- 4118 Dec, Back pain M54.9 [place] [address] 82195- 5490 Nov, [place] [address] [place] [address] 06419- 3012 Nov, Bipolar 1 disorder F31.9 ; 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 and Extreme poverty Z59.5 [place] [address] [place] [address] 11235- 4769 Nov, Bipolar 1 disorder F31.9 ; 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 and Extreme poverty Z59.5 [place] [id number] [place] [address] 04986- 0944 Oct, 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 and Bipolar 1 disorder F31.9 [place] [id number] [place] [address] 93655- 1735 Oct, Bipolar 1 disorder F31.9 ; 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 and Extreme poverty Z59.5 [place] [id number] [place] [address] 62566- 7955 Oct, Back pain M54.9 [place] [id number] [place] [address] 80657- 6320 Oct, 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 and Type 2 diabetes mellitus with complication E11.8 [place] [address] [place] [address] 87507- 3448 Sep, Bipolar 1 disorder F31.9 ; 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 [address] [address] Aug, [facility] [id number] [place] [address] 72472- 0386 Aug, 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 and Extreme poverty Z59.5 [place] [address] [place] [address] 19557- 9785 July, Back pain M54.9 and Diabetes E11.9 [place] [id number] [place] [address] 50726- 7478 Jun, Bipolar 1 disorder F31.9 ; 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 and Extreme poverty Z59.5 [place] [id number] [place] [address] 15333- 1625 Jun, Bipolar 1 disorder F31.9 ; 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 and Extreme poverty Z59.5 [place] [address] [place] [address] 58369- 4866 May, Visit for pelvic exam Z01.419 ; Acute vaginitis N76.0 and Diabetes E11.9 [place] [id number] [place] [address] 96745- 6439 May, Bipolar 1 disorder F31.9 ; 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 and Extreme poverty Z59.5 [place] [id number] [place] [address] 89188- 0661 May, [place] [address] 68415- 6083 May, [place] [address] 18017- 4008 May, Bipolar 1 disorder F31.9 ; 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 and Extreme poverty Z59.5 [place] [id number] [place] [address] 95180- 2256 May, Hyperlipidemia, unspecified E78.[address] 21153- 6723 Apr, Breast cancer screening Z12.39 [place] [address] 02245- 6049 Mar, [place] [address] 77592- 1757 Mar, Bipolar disorder, current episode mixed, unspecified F31.60 [place] [address] 25430- 5947 Mar, Bipolar 1 disorder F31.9 ; 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 and Extreme poverty Z59.5 [place] [id number] [place] [address] 10263- 7014 Feb, Acute nasopharyngitis J00 [place] [address] 37545- 1052 Feb, Dental examination Z01.20 [place] [id number] [place] [address] 04709- 3342 Feb, Dental cavities K02.9 and Chronic periodontitis, unspecified K05.30 [place] [id number] [place] [address] 63333- 0139 13 Feb, 2016 Low back pain M54.5 and Extreme poverty Z59.5 [place] [id number] [place] [address] 59682- 2430 08 Feb, 2016 [place] [address] 93892- 8920 05 Feb, 2016 Routine gynecological examination V72.31 ; Breast cancer screening Z12.39 and Herpes simplex type 1 infection B00.9 [place] [address] 93779- 6560 02 Feb, 2016 Diabetes E11.9 [place] [address] 52236- 3103 Feb, Encounter for dental examination and cleaning without abnormal findings Z01.20 [place] [id number] [place] [address] 94097- 9406 22 Jan, 2016 Hyperlipidemia, unspecified E78.5 [place] [address] 22230- 1647 22 Jan, 2016 Bipolar 1 disorder F31.9 ; 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 and Extreme poverty Z59.5 [place] [id number] [place] [address] 69652- 5387 18 Jan, 2016 Diabetes E11.9 [place] [id number] [place] [address] 71408- 8337 17 Jan, 2016 Diabetes E11.9 [place] [id number] [place] [address] 69595- 0091 14 Dec, 2015 Bipolar 1 disorder F31.9 ; 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 [address] [place] [address] 32883- 4527 Oct, [facility] [id number] [place] [address] 74484- 5393 Oct, Dental caries K02.9 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 [address] [place] [address] 05116- 5958 Oct, [facility] [id number] [place] [address] 02700- 3848 Oct, [facility] [id number] [place] [address] 20507- 1310 Oct, Dental examination Z01.20 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 [id number] [place] [address] 32484- 6595 Oct, 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 ; Extreme poverty Z59.5 and Non compliance with medical treatment Z91.19 [place] [address] [place] [address] 05820- 7464 Aug, Bipolar disorder, in partial remission, most recent episode manic F31.73 ; 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 ; Extreme poverty Z59.5 and Non compliance with medical treatment Z91.19 [place] [address] [place] [address] 38558- 4195 Aug, Bipolar disorder, in partial remission, most recent episode manic F31.73 ; 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 [address] [place] [address] 49379- 8587 Jun, nursing home current 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 Z79.891 and Bipolar [address] 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 and Non compliance with medical treatment Z91.19 [place] [address] [place] [address] 33133- 3694 29 May, 2015 Bipolar disorder, in partial remission, most recent episode manic F31.73 ; 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 [place] [id number] [place] [address] 20900- 8131 May, Type 2 diabetes mellitus with complication E11.8 and Back pain M54.9 [place] [address] 85958- 5473 May, Bipolar disorder, in partial remission, most recent episode manic F31.73 and 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 [place] [address] 29642- 6853 Apr, [place] [address] 38354- 0095 Apr, [place] [address] 12323- 0019 Apr, [place] [address] 97237- 2627 Apr, Diabetes E11.9 ; Irritable bowel syndrome with diarrhea K58.0 and Lumbar radiculopathy M54.16 [place] [id number] [place] [address] 20733- 9496 Apr, Breast screening Z12.39 [place] [id number] [place] [address] 18205- 3559 Apr, Bipolar disorder, in partial remission, most recent episode manic F31.73 ; Non compliance with medical treatment Z91.19 and 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 [place] [address] 46738- 6567 Mar, Edema, unspecified type R60.9 and Type 2 diabetes mellitus with complication E11.8 [place] [id number] [place] [address] 52098- 7085 Mar, Bipolar disorder, in partial remission, most recent episode manic F31.73 ; Non compliance with medical treatment Z91.19 ; 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 and Extreme poverty Z59.5 [place] [id number] [place] [address]- 1165 14 Mar, 2015 Bipolar disorder, current episode mixed, unspecified F31.60 ; 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 ; Extreme poverty Z59.5 and Generalized anxiety disorder F41.1 [place] [id number] [place] [address] 98942- 7812 12 Mar, 2015 Bipolar disorder, in partial remission, most recent episode manic F31.73 ; 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 and Extreme poverty Z59.5 [place] [id number] [place] [address] 03687- 7065 Feb, Bipolar disorder, in partial remission, most recent episode manic F31.73 ; 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 and Extreme poverty Z59.5 [place] [address] 49391- 8357 Feb, Bipolar disorder, in partial remission, most recent episode manic F31.73 ; 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 and Extreme poverty Z59.5 [place] [id number] [place] [address] 41435- 1229 Feb, [place] [id number] [place] [address] 27350- 2702 Jan, Type 2 diabetes mellitus with complication E11.8 and Petechiae R23.3 [place] [id number] [place] [address] 52357- 7338 Jan, Type 2 diabetes mellitus with complication E11.8 ; Edema, unspecified R60.9 ; Petechiae R23.3 and Diabetes E11.9 [place] [id number] [place] [address] 28117- 3468 Jan, Bipolar disorder, in partial remission, most recent episode manic F31.73 ; 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 and Extreme poverty Z59.5 [place] [id number] [place] [address] 88148- 0426 Jan, Bipolar disorder, in partial remission, most recent episode manic F31.73 ; 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 and Extreme poverty Z59.5 [place] [id number] [place] [address] 52900- 0088 Dec, Bipolar disorder, in partial remission, most recent episode manic F31.73 [place] [address] 11605- 5928 Dec, Edema, due to unspecified malnutrition type, unspecified edema R60.9 and Essential hypertension I10 [address] 63142- 2356 Dec, Bipolar disorder, in partial remission, most recent episode manic F31.73 [place] [address] 24591- 0261 Nov, Bipolar I disorder, most recent episode (or current) mixed, unspecified 296.60 [place] [id number] [place] [address] 52974- 1475 Nov, Stress incontinence, female 625.6 ; Back pain 724.5 and Leg pain 729.5 [place] [id number] [place] [address] 05446- 2254 Nov, Generalized anxiety disorder 300.02 and Bipolar II disorder 296.89 [place] [id number] [place] [address] 56594- 6286 Nov, Bipolar I disorder, most recent episode (or current) mixed, unspecified 296.60 [place] [address] 01863- 7087 Oct, [place] [id number] [place] [address] 73532- 8612 Oct, [place] [address] 39292- 1351 Oct, [facility] [id number] [address]- 4101 Oct, Bipolar I disorder, most recent episode (or current) mixed, unspecified 296.60 [facility] [address]- 8994 Sep, Diabetes 250.00 [facility] [address] [address]- 7825 Sep, Bipolar I disorder, most recent episode (or current) mixed, unspecified 296.60 [facility] [address] [address]- 3755 Sep, [facility] [address] 1714 Sep, [facility] [address] [address]- 6771 Sep, Bipolar I disorder, most recent episode (or current) mixed, unspecified 296.60 [facility] [address] [address]- 5214 Sep, Bipolar I disorder, most recent episode (or current) mixed, unspecified 296.60 [facility] [address]- 5268 Sep, [facility] [address] 7574 Sep, Anxiety 300.00 ; Diabetes 250.[address] [facility] [address]- 5446 Aug, [facility] [address] 5430 Aug, [facility] [address] 4486 Aug, [facility] [address] [address]- 3587 Aug, Bipolar I disorder, most recent episode (or current) mixed, unspecified 296.60 [facility] [address] 9432 Aug, Generalized anxiety disorder 300.02 and Bipolar II disorder 296.89 [facility] [address] 1799 July, Bipolar I disorder, most recent episode (or current) mixed, unspecified 296.60 [facility] [id number] [address] July, C[address] [facility] [id number] [place] [id number] July, Bipolar I disorder, most recent episode (or current) mixed, unspecified 296.60 [facility] [id number] [place] [phone] Jun, [address] [facility] [id number] [address] 14 Jun, 2014 [facility] [address] [place] [id number] [place] [address] Jun, [facility] [id number] [address] May, [facility] [id number] [address]641 May, [facility] [id number] [address] May, [facility] [id number] May, [facility] [id number] [address] May, [facility] [id number] [address] May, [facility] [place] [facility] [address] [id number] [place] [address]- 5896 Apr, [facility] [place] [facility] [address] [id number] [place] [address]- 0086 Apr, [facility] [place] [facility] [address] [id number] [place] [address]- 5936 Apr, 2014 [facility] [place] [facility] [address] [id number] [place] [address] 2546 Apr, [facility] [place] [facility] [address] [id number] [place] [address]- 2548 Apr, [facility] [place] [facility] [address] [id number] [place] [address]- 9842 Apr, [facility] [place] [facility] [address] [id number] [place] [address]- 2177 Apr, [facility] [place] [facility] [address] [id number] [place] [address]- 8965 Apr, [facility] [place] [facility] [address] [id number] [place] [address]- 8254 Mar, [facility] [place] [facility] [address] [id number] [place] [address]- 3686 Mar, [facility] [place] [facility] [address] [id number] [place] [address]- 9202 Mar, [facility] [place] [facility] [address] [id number] [place] [address]- 9550 Mar, [facility] [place] [facility] [address] [id number] [place] [address]- 9564 Mar, [facility] [place] [facility] [address] [id number] [place] [address]- 9160 Mar, [facility] [place] [facility] [address] [id number] [place] [address]- 1902 Mar, [facility] [place] [facility] [address] [id number] [place] [address]- 6436 13 Mar, 2014 [facility] [place] [facility] [address] [id number] [place] [address]- 6771 Feb, [facility] [place] [facility] [address] [id number] [place] [address]- 8111 Feb, [facility] [place] [facility] [address] [id number] [place] [address]- 6535 Feb, [facility] [place] [facility] [address] [id number] [place] [address]- 0575 Feb, [facility] [place] [facility] [address] [id number] [place] [address]- 8003 Feb, [facility] [place] [facility] [address] [id number] [place] [address]- 2290 Feb, [facility] [place] [facility] [address] [id number] [place] [address]- 2038 Feb, [facility] [place] [facility] [address] [id number] [place] [address]- 5009 Feb, [facility] [place] [facility] [address] [id number] [place] [address]- 3592 Feb, [facility] [place] [facility] [address] [id number] [place] [address]- 5736 Feb, [facility] [place] [facility] [address] [id number] [place] [address]- 0088 Jan, [facility] [place] [facility] [address] [id number] [place] [address]- 6387 Jan, [facility] [place] [facility] [address] [id number] [place] [address]- 8090 Jan, [facility] [place] [facility] [address] [id number] [place] [address]- 0682 Jan, [facility] [place] [facility] [address] [id number] [place] [address]- 3141 Jan, [facility] [place] [facility] [address] [id number] [place] [address]- 1848 Jan, [facility] [place] [facility] [address] [id number] [place] [address]- 1367 Jan, [facility] [place] [facility] [address] [id number] [place] [address]- 0462 Jan, [facility] [place] [facility] [address] [id number] [place] [address]- 8846 Jan, [facility] [place] [facility] [address] [id number] [place] [address]- 9960 Jan, [facility] [place] [facility] [address] [id number] [place] [address]- 3228 Jan, [facility] [place] [facility] [address] [id number] [place] [address]- 5678 Jan, [facility] [place] [facility] [address] [id number] [place] [address]- 8431 Jan, [facility] [place] [facility] [address] [id number] [place] [address]- 8310 Jan, [facility] [place] [facility] [address] [id number] [place] [address]- 2236 Jan, [facility] [place] [facility] [address] [id number] [place] [address]- 9841 Dec, [facility] [place] [facility] [address] [id number] [place] [address]- 3814 Dec, [facility] [place] [facility] [address] [id number] [place] [address]- 0231 Dec, [facility] [place] [facility] [address] [id number] [place] [address]- 6767 Dec, [facility] [place] [facility] [address] [id number] [place] [address]- 2402 Dec, [facility] [place] [facility] [address] [id number] [address]- 4636 09 Dec, 2013 [facility] [place] [facility] [address] [id number] [place] [address]- 0739 07 Dec, 2013 [facility] [place] [facility] [address] [id number] [place] [address]- 9387 07 Dec, 2013 [facility] [place] [facility] [address] [id number] [place] [address]- 0778 25 Sep, 2013 [facility] [place] [facility] [address] [id number] [place] [address]- 3408 25 Sep, 2013 [facility] [place] [facility] [address] [id number] [place] [address]- 9775 10 Sep, 2013 [facility] [place] [facility] [address] [id number] [place] [address]- 3194 10 Nov, 2013 [facility] [place] [facility] [address] [id number] [place] [address]- 8973 08 Nov, 2013 [facility] [place] [facility] [address] [id number] [place] [address]- 1577 08 Sep, 2013 [facility] [place] [facility] [address] [id number] [place] [address]- 8953 08 Sep, 2013 [facility] [place] [facility] [address] [id number] [place] [address]- 4705 08 Sep, 2013 [facility] [place] [facility] [address] [id number] [address]- 8406 08 Sep, 2013 [facility] [place] [facility] [address] [id number] [address]- 4113 08 Sep, 2013 [facility] [place] [facility] [address] [id number] [place] [address]- 7639 04 Sep, 2013 [facility] [place] [facility] [address] [id number] [place] [address]- 2343 04 Sep, 2013 [facility] [place] [facility] [address] [id number] [place] [address]- 2872 03 Sep, 2013 [facility] [place] [facility] [address] [id number] [place] [address]- 0363 Nov, [facility] [place] [facility] [address] [id number] [place] [address]- 3725 Nov, [facility] [place] [facility] [address] [id number] [place] [address]- 9731 Oct, [facility] [place] [facility] [address] [id number] [place] [address]- 5502 Oct, [facility] [place] [facility] [address] [id number] [place] [address]- 1211 Oct, [facility] [place] [facility] [address] [id number] [place] [address]- 8361 Oct, [facility] [place] [facility] [address] [id number] [place] [address]- 1581 Oct, [facility] [place] [facility] [address] [id number] [place] [address]- 9286 Oct, [facility] [place] [facility] [address] [id number] [place] [address]- 1957 Oct, [facility] [place] [facility] [address] [id number] [place] [address]- 1045 Oct, [facility] [place] [facility] [address] [id number] [place] [address]- 8093 Oct, [facility] [place] [facility] [address] [id number] [place] [address]- 5442 Oct, [facility] [place] [facility] [address] [id number] [place] [address]- 4887 Oct, [facility] [place] [facility] [address] [id number] [place] [address]- 8440 Oct, [facility] [place] [facility] [address] [id number] [place] [address]- 9657 Oct, [facility] [place] [facility] [address] [id number] [place] [address]- 0888 Oct, [facility] [place] [facility] [address] [id number] [place] [address]- 9029 Sep, [facility] [place] [facility] [address] [id number] [place] [address]- 4943 Sep, [facility] [place] [facility] [address] [id number] [place] [address]- 6663 Sep, [facility] [place] [facility] [address] [id number] [place] [address]- 1260 Sep, [facility] [place] [facility] [address] [id number] [place] [address]- 5457 Sep, [facility] [place] [facility] [address] [id number] [place] [address]- 6353 Sep, [facility] [place] [facility] [address] [id number] [place] [address]- 6489 Sep, [facility] [place] [facility] [address] [id number] [place] [address]- 6667 Sep, [facility] [place] [facility] [address] [id number] [place] [address]- 5699 Aug, [facility] [place] [facility] [address] [id number] [place] [address]- 8042 Aug, [facility] [place] [facility] [address] [id number] [place] [address]- 2569 Aug, [facility] [place] [facility] [address] [id number] [place] [address]- 4435 Aug, [facility] [place] [facility] [address] [id number] [place] [address]- 0412 Aug, [facility] [place] [facility] [address] [id number] [place] [address]- 1519 Aug, [facility] [place] [facility] [address] [id number] [place] [address]- 9672 Aug, [facility] [place] [facility] [address] [id number] [place] [address]- 5064 Aug, [facility] [address] [id number] [place] [address]- 8656 July, [facility] [place] [facility] [address] [id number] [place] [address]- 7309 July, [facility] [place] [facility] [address] [id number] [place] [address]- 9881 July, [facility] [place] [facility] [address] [id number] [place] [address]- 2183 July, [facility] [place] [facility] [address] [id number] [place] [address]- 0700 July, [facility] [place] [facility] [address] [id number] [place] [address]- 4595 July, [facility] [place] [facility] [address] [id number] [place] [address]- 5476 July, [facility] [place] [facility] [address] [id number] [place] [address]- 8783 July, [facility] [place] [facility] [address] [id number] [place] [address]- 2229 Jun, [facility] [place] [facility] [address] [id number] [place] [address]- 3709 Jun, [facility] [place] [facility] [address] [id number] [place] [address]- 6077 Jun, [facility] [place] [facility] [address] [id number] [place] [address]- 7876 Jun, [facility] [place] [facility] [address] [id number] [place] [address]- 1845 Jun, [facility] [place] [facility] [address] [id number] [place] [address]- 1667 Jun, [facility] [place] [facility] [address] [id number] [place] [address]- 6196 Jun, [facility] [place] [facility] [address] [id number] [place] [address]- 3537 15 Jun, 2013 [facility] [place] [facility] [address] [id number] [place] [address]- 5494 Jun, [facility] [place] [facility] [address] [id number] [place] [address]- 0536 Jun, [facility] [place] [facility] [address] [id number] [place] [address]- 7198 Jun, [facility] [place] [facility] [address] [id number] [place] [address]- 9705 Jun, [facility] [place] [facility] [address] [id number] [place] [address]- 5895 May, [facility] [place] [facility] [address] [id number] [place] [address]- 0912 May, [facility] [place] [facility] [address] [id number] [place] [address]- 7517 May, [facility] [place] [facility] [address] [id number] [place] [address]- 3470 May, [facility] [place] [facility] [address] [id number] [place] [address]- 2623 May, [facility] [place] [facility] [address] [id number] [place] [address]- 1541 May, [facility] [place] [facility] [address] [id number] [place] [address]- 2711 May, [facility] [place] [facility] [address] [id number] [place] [address]- 7530 May, [facility] [place] [facility] [address] [id number] [place] [address]- 0075 May, [facility] [place] [facility] [address] [id number] [place] May, [facility] [place] [facility] [address] [id number] [place] [address]- 2613 May, [facility] [place] [facility] [address] [id number] [place] [address]- 4859 May, [facility] [place] [facility] [address] [id number] [place] [address]- 6766 May, [facility] [place] [facility] [address] [id number] [place] [address]- 4711 May, [facility] [place] [facility] [address] [id number] [place] [address]- 6605 Apr, [facility] [place] [facility] [address] [id number] [place] [address]- 5129 Apr, [facility] [place] [facility] [address] [id number] [place] [address]- 5578 Apr, [facility] [place] [facility] [address] [id number] [place] [address]- 7490 Apr, [facility] [place] [facility] [address] [id number] [place] [address]- 6121 Apr, [facility] [place] [facility] [address] [id number] [place] [address]- 6229 Apr, [facility] [place] [facility] [address] [id number] [place] [address]- 2871 Mar, [facility] [place] [facility] [address] [id number] [place] [address]- 9713 Mar, [facility] [place] [facility] [address] [id number] [place] [address]- 8732 Mar, [facility] [place] [facility] [address] [id number] [place] [address]- 2641 Mar, [facility] [place] [facility] [address] [id number] [place] [address]- 3120 Mar, [facility] [place] [facility] [address] [id number] [place] [address]- 4372 Mar, [facility] [place] [facility] [address] [id number] [place] [address]- 3922 Mar, [facility] [address] [id number] [place] [address]- 9141 Mar, [facility] [address] [id number] [place] [address]- 8116 Mar, [facility] [address] [id number] [place] [address]- 4705 Mar, [facility] [address] [id number] [place] [address]- 2792 Mar, [facility] [address] [id number] [place] [address]- 2417 Mar, [facility] [address] [id number] [place] [address]- 0658 Mar, [facility] [address] [id number] [place] [address]- 3775 Mar, [facility] [address] [id number] [place] [address]- 5671 Feb, [facility] [address] [id number] [place] [address]- 6479 Feb, [facility] [address] [id number] [place] [address]- 3371 Feb, [facility] [address] [id number] [place] [address]- 7835 Feb, [facility] [address] [id number] [place] [address]- 2541 Feb, [facility] [place] [facility] [address] [id number] [place] [address]- 7599 Feb, [facility] [address] [id number] [place] [address]- 8731 Feb, [facility] [address] [id number] [place] [address]- 7301 Feb, [facility] [place] [facility] [address] [id number] [place] [address]- 7149 Feb, 2012 [facility] [place] [facility] [address] [id number] [place]38 Feb, 2012 [facility] [place] [facility] [address] [id number] [place] [address]- 0083 Feb, 2012 [facility] [place] [facility] [address] [id number] [place] [address]- 7343 Feb, 2012 [facility] [place] [facility] [address] [id number] [place] [address]39 Feb, [facility] [place] [facility] [address] [id number] [place] [address]- 6336 Feb, [facility] [place] [facility] [address] [id number] [place] [address]- 8681 Feb, [facility] [place] [facility] [address] [id number] [address]- 0492 Feb, [facility] [place] [facility] [address] [id number] [place] [address]- 1081 24 Dec, 2012 [facility] [place] [facility] [address] [id number] [address]- 0161 24 Dec, 2012 [facility] [place] [facility] [address] [id number] [address]- 5545 16 Dec, 2012 [facility] [place] [facility] [address] [id number] [address]- 0656 16 Dec, 2012 [facility] [place] [facility] [address] [id number] [address]- 8680 16 Dec, 2012 [facility] [place] [facility] [address] [id number] [address]- 7440 16 Dec, 2012 [facility] [place] [facility] [address] [id number] [address]- 0682 14 Dec, 2012 [facility] [place] [facility] [address] [id number] [place] [address]- 5103 14 Dec, 2012 [facility] [place] [facility] [address] [id number] [place] [address]- 6397 10 Dec, 2012 [facility] [place] [facility] [address] [id number] [place] [address]- 7243 10 Dec, 2012 [facility] [place] [facility] [address] [id number] [place] [address]- 0310 10 Dec, 2012 [facility] [place] [facility] [address] [id number] [place] [address]- 4773 10 Dec, 2012 [facility] [place] [facility] [address] [id number] [place] [address]- 8346 03 Dec, 2012 [facility] [place] [facility] [address] [id number] [place] [address]- 7850 25 Nov, 2012 [facility] [place] [facility] [address] [id number] [place] [address]- 1766 20 Nov, 2012 [facility] [place] [facility] [address] [id number] [place] [address]- 9931 18 Nov, 2012 [facility] [place] [facility] [address] [id number] [place] [address]- 9224 16 Nov, 2012 [facility] [place] [facility] [address] [id number] [place] [address]- 3791 12 Nov, 2012 [facility] [place] [facility] [address] [id number] [place] [address]- 5107 11 Nov, 2012 [facility] [place] [facility] [address] [id number] [address] 05 Nov, 2012 [facility] [place] [facility] [address] [id number] [place] [address] 15 Oct, 2012 [facility] [place] [facility] [address] [id number] [place] [address] Oct, [facility] [place] [facility] [address] [id number] [place] [address] 24 Sep, 2012 [facility] [place] [facility] [address] [id number] [place] [address] 23 Sep, 2012 [facility] [place] [facility] [address] [id number] [place] [address] 18 Sep, 2012 [facility] [place] [facility] [address] [id number] [place] [address] 17 Sep, 2012 [facility] [place] [facility] [address] [id number] [place] [address] 15 Sep, 2012 [facility] [place] [facility] [address] [id number] [place] [address]47 09 Sep, 2012 [facility] [place] [facility] [address] [id number] [place] [address] Sep, [facility] [place] [facility] [address] [id number] [place] [address] Aug, [facility] [place] [facility] [address] [id number] [place] [address] 4028 Aug, [facility] [place] [facility] [address] [id number] [place] [address] 16 Aug, 2012 [facility] [place] [facility] [address] [id number] [place] [address] Aug, [facility] [place] [facility] [address] [id number] [place] [address] Aug, [facility] [place] [facility] [address] [id number] [place] [address] 38[address] Aug, [facility] [place] [facility] [address] [id number] [place] [address] Aug, [facility] [place] [facility] [address] [id number] [place] [address] Aug, [facility] [place] [facility] [address] [id number] [place] [address] July, [facility] [place] [facility] [address] [id number] [place] [address] July, [facility] [address] [id number] [place] [address] July, [facility] [address] [id number] [place] [id number] July, [facility] [address] [id number] [place] [address] July, [facility] [address] [id number] [place] [address] Jun, [facility] [address] [id number] [place] [address] May, [facility] [address] [id number] [place] [address] 4516 May, [facility] [address] [id number] [place] [address] 7946 May, [facility] [address] [id number] [place] [address] Apr, [facility] [address] [id number] [place] [address] Apr, [facility] [address] [id number] [place] [address] 58[address] Apr, [facility] [address] [id number] [place] [address] Mar, [facility] [address] [id number] [place] [address] Mar, [facility] [address] [id number] [place] [address] Mar, [facility] [address] [id number] [place] [address] 65[address] Mar, [facility] [address] [id number] [place] [address]16 Mar, [facility] [address] [id number] [place] [address] 68[address] Mar, [facility] [address] [id number] [place] [address] Mar, [facility] [address] [id number] [place] [address] Feb, [facility] [address] [id number] [place] [address] Feb, [facility] [address] [id number] [place] [address] 76[address] Feb, [facility] [address] [id number] [place] [address] Feb, [facility] [address] [id number] [place] [address]33 Feb, [facility] [address] [id number] [place] [address] 5847 Feb, [facility] [address] [id number] [place] [address] 8580 Feb, [facility] [address] [id number] [place] [address] Feb, [facility] [address] [id number] [place] [address] 4[address] Jan, [facility] [address] [id number] [place] [address] 46[address] Jan, [facility] [address] [id number] [place] [address] Jan, [facility] [place] [facility] [address] [id number] [place] [address] Jan, [facility] [address] [id number] [place] [address]73 Jan, [facility] [address] [id number] [place] [address] 89[address] Jan, [facility] [place] [facility] [address] [id number] [place] [address] 64[address] Jan, [facility] [place] [facility] [address] [id number] [place] [address] 0982 Jan, [facility] [place] [facility] [address] [id number] [place] [address] 3590 Jan, [facility] [place] [facility] [address] [id number] [place] [address]235 Jan, [facility] [place] [facility] [address] [id number] [place] [address] 409[address] Jan, [facility] [place] [facility] [address] [id number] [place] [address] 9822 Jan, [facility] [place] [facility] [address] [facility] [id number] [place] [address] 134[address] Jan, [facility] [place] [facility] [address] [id number] [place] [address]236 Jan, [facility] [place] [facility] [address] [id number] [place] [address] 1696 Jan, [facility] [place] [facility] [address] [id number] [place] [address] 8774 Jan, [facility] [place] [facility] [address] [facility] [id number] [place] [address] 7835 Dec, [facility] [place] [facility] [address] [id number] [place] [address] 9096 Dec, [facility] [place] [facility] [address] [id number] [place] [address]- 66[address] Dec, [facility] [place] [facility] [address] [id number] [place] [address] 5435 Dec, [facility] [place] [facility] [address] [facility] [id number] [place] [address]- 1707 Dec, [facility] [place] [facility] [address] [id number] [place] [address] 1696 Dec, [facility] [place] [facility] [address] [id number] [place] [address] 8597 Dec, [facility] [place] [facility] [address] [id number] [place] [address] Dec, [facility] [place] [facility] [address] [id number] [place] [address]263 08 Dec, 2011 [facility] [place] [facility] [address] [id number] [place] [address]- 6376 05 Dec, 2011 [facility] [place] [facility] [address] [id number] [place] [address] 18 Nov, 2011 [facility] [place] [facility] [address] [id number] [place] [address] 13 Nov, 2011 [facility] [place] [facility] [address] [id number] [place] [address] 24 Oct, 2011 [facility] [place] [facility] [address] [id number] [place] [address] Oct, [facility] [place] [facility] [address] [id number] [place] [address] Oct, [facility] [place] [facility] [address] [id number] [place] [address] 16 Oct, 2011 [facility] [place] [facility] [address] [id number] [place] [address] Oct, [facility] [place] [facility] [address] [id number] [place] [address] Oct, [facility] [place] [facility] [address] [id number] [place] [address] Oct, [facility] [place] [facility] [address] [id number] [place] [address] Sep, [facility] [place] [facility] [address] [id number] [place] [address] Aug, [facility] [place] [facility] [address] [id number] [place] [address] 18 Aug, 2011 [facility] [place] [facility] [address] [id number] [place] [address] Aug, [facility] [place] [facility] [address] [id number] [place] [address] Aug, [facility] [place] [facility] [address] [id number] [place] [address] Aug, [facility] [place] [facility] [address] [id number] [place] [address] July, [facility] [place] [facility] [address] [id number] [place] [address] July, [facility] [place] [facility] [address] [id number] [place] [address] July, [facility] [place] [facility] [address] [id number] [place] [address] Jun, [facility] [address] [id number] [place] [address] Jun, [facility] [place] [facility] [address] [id number] [place] [address] Jun, [facility] [place] [facility] [address] [id number] [place] [address] Jun, [facility] [place] [facility] [address] [id number] [place] [address] May, [facility] [place] [facility] [address] [id number] [place] [address]84 30 May, 2011 [facility] [place] [facility] [address] [id number] [place] [address] 29 May, 2011 [facility] [place] [facility] [address] [id number] [place] [address] May, [facility] [place] [facility] [address] [id number] [place] [address] May, [facility] [address] [id number] [place] [address] 22 May, 2011 [facility] [place] [facility] [address] [id number] [place] [address] May, [facility] [place] [facility] [address] [id number] [place] [address] 2271 19 May, 2011 [facility] [place] [facility] [address] [id number] [place] [address] 08 May, 2011 [facility] [place] [facility] [address] [id number] [place] [address] 05 May, 2011 [facility] [place] [facility] [address] [id number] [place] [address] May, [facility] [place] [facility] [address] [id number] [place] [address] May, [facility] [place] [facility] [address] [id number] [place] [address]841 Mar, [facility] [place] [facility] [address] [id number] [place] [address] Mar, [facility] [place] [facility] [address] [id number] [place] [address] 28 Feb, 2011 [facility] [place] [facility] [address] [id number] [place] [address] Feb, [facility] [place] [facility] [address] [id number] [place] [address] 20 Feb, 2011 [facility] [place] [facility] [address] [id number] [place] [address]96 15 Feb, 2011 [facility] [place] [facility] [address] [id number] [place] [address] 1442 13 Feb, 2011 [facility] [place] [facility] [address] [id number] [place] [address] 8918 13 Feb, 2011 [facility] [place] [facility] [address] [id number] [place] [address] 3460 13 Feb, 2011 [facility] [place] [facility] [address] [id number] [place] [address] 28 Jan, 2011 [facility] [place] [facility] [address] [id number] [place] [address] Jan, [facility] [place] [facility] [address] [id number] [place] [address] Jan, [facility] [place] [facility] [address] [id number] [place] [address] 3264 17 Jan, 2011 [facility] [place] [facility] [address] [id number] [place] [address]- 1099 Jan, [facility] [place] [facility] [address] [id number] [place] [address] 8966 Jan, [facility] [place] [facility] [address] [id number] [place] [address] 8062 Dec, [facility] [place] [facility] [address] [id number] [place] [address] 0931 Dec, [facility] [place] [facility] [address] [id number] [place] [address]- 4546 Dec, [facility] [place] [facility] [address] [id number] [place] [address] 0478 July, [facility] [place] [facility] [address] [id number] [place] [address] 29[address] July, [facility] [place] [facility] [address] [id number] [place] [address]- 4190 08 Feb, 2010 [facility] [place] [facility] [address] [id number] [place] [address]- 3584 18 Jan, 2010 [facility] [place] [facility] [address] [id number] [place] [address] 8584 Dec, [facility] [place] [facility] [address] [id number] [place] [address] 7039 Dec, [facility] [place] [facility] [address] [id number] [place] [address]- [address]221 15 Sep, 2009 [facility] [place] [facility] [address] [id number] [place] [address] 6[address] Aug, [facility] [place] [facility] [address] [id number] [place] [address]- 7046 Jun, [facility] [place] [facility] [address] [id number] [place] [address]- [address]592 Jun, [facility] [place] [facility] [address] [id number] [place] [address]- 0742 Jan, [facility] [place] [facility] [address] [id number] [place] [address]- 2955 Jan, [facility] [place] [facility] [address] [facility] [id number] [place] [address]- 44[address] Jan, [facility] [place] [facility] [address] [id number] [place] [address]- 1451 Jan, [facility] [place] [facility] [address] [id number] [place] [address]- 8375 Dec, [facility] [place] [facility] [address] [id number] [place] [address]- 4362 Dec, [facility] [place] [facility] [address] [facility] [id number] [place] [address]- 7609 Dec, [facility] [place] [facility] [address] [id number] [address] Nov, [facility] [place] [facility] [address] [id number] [place] [address] 6597 July, [facility] [place] [facility] [address] [id number] [place] [address]- 8226 May, [facility] [place] [facility] [address] [id number] [place] [address] 239[address] Apr, [facility] [place] [facility] [address] [id number] [place] [address] Feb, [facility] [address] [facility] [id number] [place] [address] Dec, IMMUNIZATIONS No Known Immunizations SOCIAL HISTORY Never Assessed REASON FOR VISIT f/u PLAN OF CARE Activity Details Follow Up 2 sessions, 2 weeks apart, 1/2 hour. Reason: VITAL SIGNS MEDICATIONS Unknown Medications RESULTS No Results PROCEDURES Procedure Date Ordered Result Body Site Psychotherapy, patient &/family, 30 minutes, established patient Dec 02, 2016 INSTRUCTIONS MEDICATIONS ADMINISTERED No Known Medications [...]
--- OUTSIDE RECORDS SUMMARY | 2017-09-01 18:39 | XMS REPORT ---
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 Name Role Phone BEVERLY TAO Unavailable PROBLEMS Type Condition ICD9-CM Code GHE23-SI Code Onset Dates Condition Status SNOMED Code Problem Diabetes E11.9 Active 395234477 Problem Lumbar radiculopathy M54.16 Active 432794339 Problem Irritable bowel syndrome with diarrhea K58.0 Active 451592498 Problem New daily persistent headache G44.52 Active 191536296 Problem Acute bilateral low back pain with right-sided sciatica M54.41 Active 248143890 Problem USP current 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 Z79.891 Active 227470504 Problem Bipolar 1 disorder F31.9 Active 400977354 Problem Hyperlipidemia, unspecified E78.5 Active 16925606 Problem Type 2 diabetes mellitus with complication E11.8 Active 088436570 Problem Post laminectomy syndrome M96.1 Active 78445423 Problem Eye exam normal Z01.00 Active 059607743 Problem Bipolar disorder, in partial remission, most recent episode manic F31.73 Active 97134119 Problem Extreme poverty Z59.5 Active 42677491 Problem Obesity, unspecified 278.00 Active 315404412 Problem 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 Active 89819196 Problem Hyperlipidemia 272.4 Active 76383595 Problem Non compliance with medical treatment Z91.19 Active 5573444 ALLERGIES Substance Reaction Event Type Date Status Zithromax Chest pain Drug Allergy Jan, Active Prednisone elevated blood sugars Drug Allergy Jan, Active ENCOUNTERS Encounter Location Date Diagnosis [facility] [address] [facility] [id number] [address] Aug, [facility] [address] [facility] [id number], [place] [address] Aug, [facility] [address] [address] Aug, [place] [id number] [place] [address] 68636- 7707 July, Type 2 diabetes mellitus with complication E11.8 [place] [id number] [place] [address] 32663- 8221 July, Bipolar 1 disorder F31.9 ; 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 and Extreme poverty Z59.5 [place] [address] [id number] [place] [address] 47540- 6547 Jun, Bipolar 1 disorder F31.9 ; 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 and Extreme poverty Z59.5 [place] [id number] [place] [address] 27862- 1045 Jun, Bipolar 1 disorder F31.9 ; 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 and Extreme poverty Z59.5 [place] [id number] [place] [address] 01684- 3265 Jun, Bipolar 1 disorder F31.9 ; 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 and Extreme poverty Z59.5 [place] [id number] [place] [address] 97282- 0930 May, Urinary tract infection without hematuria, site unspecified N39.0 [place] [address] [place] [address] 83429- 3994 May, Bipolar 1 disorder F31.9 ; 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 and Extreme poverty Z59.5 [place] [address] [place] [address] 37172- 2153 Apr, Diabetes E11.9 and Breast cancer screening Z12.31 [place] [id number] [place] [address] 75858- 7800 Apr, Bipolar 1 disorder F31.9 and 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 [place] [id number] [place] [address] 80895- 2423 Mar, Bipolar 1 disorder F31.9 ; 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 and Extreme poverty Z59.5 [place] [id number] [place] [address] 27423- 8660 Mar, New daily persistent headache G44.52 ; Leg pain 729.5 and History of carpal tunnel release Z98.890 [place] [id number] [place] [address] 58027- 9675 Mar, Hyperlipidemia, unspecified E78.5 [place] [address] [id number] [place] [address] 12377- 7570 Mar, Bipolar 1 disorder F31.9 ; 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 and Extreme poverty Z59.5 [place] [id number] [place] [address] 28596- 1990 Feb, Bipolar 1 disorder F31.9 ; 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 and Extreme poverty Z59.5 [place] [address] [id number] [place] [address] 17833- 8113 Feb, Diabetes E11.[address] 11955- 7925 Feb, Viral syndrome B34.[address] 79757- 7231 Jan, Other viral agents as the cause of diseases classified elsewhere B97.89 and Acute upper respiratory infection, unspecified J06.9 [place] [id number] [place] [address] 46315- 8970 Jan, Bipolar 1 disorder F31.9 and 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 [place] [id number] [place] [address] 40406- 6351 Jan, Bipolar 1 disorder F31.9 ; 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 and Extreme poverty Z59.5 [place] [id number] [place] [address] 65461- 6812 26 Oct, 2017 Diabetes E11.9 [place] [address] [place] [address] 33376- 2859 Dec, Diabetes E11.9 and Encounter for immunization Z23 [place] [id number] [place] [address] 51788- 0519 Dec, Bipolar 1 disorder F31.9 ; 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 and Extreme poverty Z59.5 [place] [address] [id number] [place] [address] 53944- 6658 Dec, Back pain M54.9 [place] [id number] [place] [address] 77678- 6406 Nov, [place] [id number] [place] [address] 57166- 0256 Nov, Bipolar 1 disorder F31.9 ; 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 and Extreme poverty Z59.5 [place] [id number] [place] [address] 80685- 1436 Nov, Bipolar 1 disorder F31.9 ; 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 and Extreme poverty Z59.5 [place] [id number] [place] [address] 92220- 3883 Oct, 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 and Bipolar 1 disorder F31.9 [place] [id number] [place] [address] 46258- 2843 Oct, Bipolar 1 disorder F31.9 ; 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 and Extreme poverty Z59.5 [place] [address] [place] [address] 12403- 9723 Oct, Back pain M54.9 [place] [id number] [place] [address] 61200- 5890 Oct, 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 and Type 2 diabetes mellitus with complication E11.8 [place] [address] [place] [address] 73476- 9485 Sep, Bipolar 1 disorder F31.9 ; 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 and Extreme poverty Z59.5 [facility] [address] [place] [address] 78390- 9457 Sep, 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 and Bipolar 1 disorder F31.9 [facility] [id number] [place] [address] 52782- 0263 Sep, Bipolar 1 disorder F31.9 ; 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 and Extreme poverty Z59.5 [place] [id number] [place] [address] 42139- 6312 Aug, Diabetes E11.9 ; Hyperlipidemia, unspecified E78.5 and Lumbar radiculopathy M54.16 [place] [id number] [place] [address] 90082- 9761 Aug, Bipolar 1 disorder F31.9 ; 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 and Extreme poverty Z59.5 [place] [id number] [place] [address] 50065- 4832 Aug, [facility] [id number] [place] [address] 61260- 9806 Aug, [place] [id number] [place] [address] 28278- 1031 Aug, [facility] [id number] [place] [address] 23895- 8655 July, [place] [id number] [place] [address] 53962- 3036 July, Acute bilateral low back pain with right-sided sciatica M54.41 [place] [id number] [place] [address] 85227- 9331 July, Bipolar 1 disorder F31.9 ; 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 and Extreme poverty Z59.5 [facility] [id number] [place] [address] 06575- 1112 July, Back pain M54.9 and Diabetes E11.9 [place] [address] [place] [address] 42155- 9486 Jun, Bipolar 1 disorder F31.9 ; 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 and Extreme poverty Z59.5 [place] [address] [place] [address] 99345- 5988 Jun, Bipolar 1 disorder F31.9 ; 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 and Extreme poverty Z59.5 [place] [id number] [place] [address] 43761- 5093 May, Visit for pelvic exam Z01.419 ; Acute vaginitis N76.0 and Diabetes E11.9 [place] [id number] [place] [address] 42098- 8425 May, Bipolar 1 disorder F31.9 ; 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 and Extreme poverty Z59.5 [place] [id number] [place] [address] 06400- 4906 May, [place] [id number] [place] [address] 14403- 2591 May, [place] [id number] [place] [address] 35529- 6056 May, Bipolar 1 disorder F31.9 ; 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 and Extreme poverty Z59.5 [place] [address] [place] [address] 31667- 7093 May, Hyperlipidemia, unspecified E78.5 [place] [address] [place] [address] 01913- 6565 Apr, Breast cancer screening Z12.39 [place] [id number] [place] [address] 54717- 3350 Mar, [place] [address] [place] [address] 57314- 1211 Mar, Bipolar disorder, current episode mixed, unspecified F31.60 [place] [id number] [place] [address] 00329- 3089 Mar, Bipolar 1 disorder F31.9 ; 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 and Extreme poverty Z59.5 [place] [id number] [place] [address] 86111- 7083 30 Feb, 2016 Acute nasopharyngitis J00 [place] [id number] [place] [address] 32394- 1583 27 Feb, 2016 Dental examination Z01.[address] 80007- 5970 21 Feb, 2016 Dental cavities K02.9 and Chronic periodontitis, unspecified K05.30 [place] [id number] [place] [address] 41570- 7724 13 Feb, 2016 Low back pain M54.5 and Extreme poverty Z59.[address] 19061- 4790 08 Feb, 2016 [place] [id number] [place] [address] 48508- 1843 05 Feb, 2016 Routine gynecological examination V72.31 ; Breast cancer screening Z12.39 and Herpes simplex type 1 infection B00.9 [place] [id number] [place] [address] 34736- 7464 02 Feb, 2016 Diabetes E11.9 [place] [id number] [place] [address] 30540- 4926 Feb, Encounter for dental examination and cleaning without abnormal findings Z01.20 [place] [id number] [place] [address] 50916- 4629 Jan, Hyperlipidemia, unspecified E78.5 [place] [id number] [place] [address] 98469- 8804 Jan, Bipolar 1 disorder F31.9 ; 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 and Extreme poverty Z59.5 [place] [id number] [place] [address] 45744- 1602 18 Jan, 2016 Diabetes E11.9 [place] [id number] [place] [address] 19767- 8856 17 Jan, 2016 Diabetes E11.9 [place] [address] [id number] [place] [address] 81208- 3312 14 Dec, 2015 Bipolar 1 disorder F31.9 ; 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 and Extreme poverty Z59.5 [place] [id number] [place] [address] 08468- 6244 13 Dec, 2015 Bipolar disorder, current episode mixed, unspecified F31.60 and 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 [place] [address] [id number] [place] [address] 08573- 7514 16 Nov, 2015 Bipolar 1 disorder F31.9 ; 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 ; Extreme poverty Z59.5 and Non compliance with medical treatment Z91.19 [place] [id number] [place] [address] 88469- 9358 Oct, [place] [id number] [place] [address] 21871- 2867 Oct, Dental caries K02.9 [place] [address] [id number] [place] [address] 07563- 7532 Oct, Low back pain M54.5 and Other chronic pain G89.29 [place] [address] [id number] [place] [address] 75135- 6563 Oct, Bipolar 1 disorder F31.9 ; 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 ; Extreme poverty Z59.5 and Non compliance with medical treatment Z91.19 [place] [id number] [place] [address] 10235- 1350 Oct, [place] [address] [id number] [place] [address] 12268- 4472 Oct, [place] [address] [id number] [place] [address] 08609- 2390 Oct, Dental examination Z01.20 [place] [address] [address]- 4731 Oct, Bipolar 1 disorder F31.9 ; 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 ; Extreme poverty Z59.5 and Non compliance with medical treatment Z91.19 [place] [address] [address]- 6296 Oct, [place] [address] [id number] [place] [address] 09506- 3437 Sep, Type 2 diabetes mellitus with complication E11.8 [place] [address] [id number] [place] [address] 03717- 0641 Sep, Bipolar disorder, current episode mixed, unspecified F31.60 [place] [address] [place] [address] 20580- 8601 Sep, Bipolar disorder, current episode mixed, unspecified F31.60 [place] [address] [place] [address] 54093- 5266 Sep, Bipolar disorder, in partial remission, most recent episode manic F31.73 ; 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 ; Extreme poverty Z59.5 and Non compliance with medical treatment Z91.19 [place] [address] [address]- 5653 Aug, Bipolar disorder, in partial remission, most recent episode manic F31.73 ; 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 ; Extreme poverty Z59.5 and Non compliance with medical treatment Z91.19 [place] [address] [place] [address] 91172- 7854 09 Aug, 2015 Bipolar disorder, in partial remission, most recent episode manic F31.73 ; 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 ; Extreme poverty Z59.5 and Non compliance with medical treatment Z91.19 [place] [address] [address]- 8334 Aug, [place] [address] [id number] [place] [address] 54528- 1050 July, Bipolar disorder, in partial remission, most recent episode manic F31.73 ; 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 ; Extreme poverty Z59.5 and Non compliance with medical treatment Z91.19 [place] [address] [place] [address] 65904- 8609 July, Bipolar disorder, current episode mixed, unspecified F31.60 [place] [address] [id number] [place] [address] 86797- 8599 July, Bipolar disorder, in partial remission, most recent episode manic F31.73 ; 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 ; Extreme poverty Z59.5 and Non compliance with medical treatment Z91.19 [place] [address] [place] [address] 58903- 2778 July, rn long term care current 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 Z79.891 and Chronic pain G89.29 [place] [address] [id number] [place] [address] 04659- 1803 Jun, USP current 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 Z79.891 and Bipolar 1 disorder F31.9 [place] [address] [id number] [place] [address] 08228- 3211 Jun, [place] [address] [place] [address] 09721- 9259 Jun, [place] [address] [place] [address] 18766- 4818 Jun, [place] [address] [address] [id number] [place] [address] 50818- 3104 Jun, Bipolar disorder, in partial remission, most recent episode manic F31.73 ; 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 and Non compliance with medical treatment Z91.19 [place] [address] [place] [address] 72649- 6453 May, Bipolar disorder, in partial remission, most recent episode manic F31.73 ; 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 and Non compliance with medical treatment Z91.19 [place] [address] [address]- 6123 22 May, 2015 Bipolar disorder, in partial remission, most recent episode manic F31.73 [place] [address] [place] [address] 57192- 7730 22 May, 2015 Diabetes E11.9 and Chronic pain G89.29 [place] [address] [id number] [place] [address] 18566- 7616 14 May, 2015 [place] [address] [id number] [place] [address] 09742- 1809 08 May, 2015 Bipolar disorder, in partial remission, most recent episode manic F31.73 ; Non compliance with medical treatment Z91.19 and 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 [place] [address] [id number] [place] [address] 12910- 4049 May, Type 2 diabetes mellitus with complication E11.8 and Back pain M54.9 [place] [address] [id number] [place] [address] 09174- 6867 May, Bipolar disorder, in partial remission, most recent episode manic F31.73 and 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 [place] [address] [place] [address] 23743- 8807 24 Apr, 2015 [place] [address] [place] [address] 77117- 4021 Apr, [place] [address] [id number] [place] [address] 82929- 0675 Apr, [place] [address] [id number] [place] [address] 69528- 7143 09 Apr, 2015 Diabetes E11.9 ; Irritable bowel syndrome with diarrhea K58.0 and Lumbar radiculopathy M54.16 [place] [address] [place] [address] 97800- 0547 02 Apr, 2015 Breast screening Z12.39 [place] [address] [address]- 5189 Apr, Bipolar disorder, in partial remission, most recent episode manic F31.73 ; Non compliance with medical treatment Z91.19 and 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 [place] [address] [place] [address] 90215- 7731 Mar, Edema, unspecified type R60.9 and Type 2 diabetes mellitus with complication E11.8 [place] [address] [id number] [place] [address] 53927- 5591 Mar, Bipolar disorder, in partial remission, most recent episode manic F31.73 ; Non compliance with medical treatment Z91.19 ; 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 and Extreme poverty Z59.5 [place] [address] [place] [address] 16543- 8514 Mar, Bipolar disorder, current episode mixed, unspecified F31.60 ; 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 ; Extreme poverty Z59.5 and Generalized anxiety disorder F41.1 [place] [address] [id number] [place] [address] 53880- 2904 Mar, Bipolar disorder, in partial remission, most recent episode manic F31.73 ; 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 and Extreme poverty Z59.5 [place] [address] [place] [address] 30096- 3317 Feb, Bipolar disorder, in partial remission, most recent episode manic F31.73 ; 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 and Extreme poverty Z59.5 [place] [address] [place] [address] 00504- 3109 Feb, Bipolar disorder, in partial remission, most recent episode manic F31.73 ; 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 and Extreme poverty Z59.5 [place] [address] [place] [address] 80762- 4785 Feb, [place] [id number] [place] [address] 16670- 7538 Jan, Type 2 diabetes mellitus with complication E11.8 and Petechiae R23.3 [place] [address] 605732- 2404 Jan, Type 2 diabetes mellitus with complication E11.8 ; Edema, unspecified R60.9 ; Petechiae R23.3 and Diabetes E11.9 [place] [address] 40493- 1983 Jan, Bipolar disorder, in partial remission, most recent episode manic F31.73 ; 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 and Extreme poverty Z59.5 [place] [address] 449273- 7849 Jan, Bipolar disorder, in partial remission, most recent episode manic F31.73 ; 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 and Extreme poverty Z59.5 [place] [address] 42109- 7785 Dec, Bipolar disorder, in partial remission, most recent episode manic F31.73 [place] [address] 45482- 8626 Dec, Edema, due to unspecified malnutrition type, unspecified edema R60.9 and Essential hypertension I10 [place] [address] 57599- 5105 Dec, Bipolar disorder, in partial remission, most recent episode manic F31.73 [place] [address] 52233- 5039 Nov, Bipolar I disorder, most recent episode (or current) mixed, unspecified 296.60 [place] [address] [place] [address]- 5104 Nov, Stress incontinence, female 625.6 ; Back pain 724.5 and Leg pain 729.[address] 98792- 9089 Nov, Generalized anxiety disorder 300.02 and Bipolar II disorder 296.89 [facility] [address] [address]- 9113 Nov, Bipolar I disorder, most recent episode (or current) mixed, unspecified 296.60 [facility] [address], [place] [address]- 5383 Oct, [facility] [id number] [place] [address] 32063- 9934 Oct, [facility] [address], [place] [address]- 2022 Oct, [facility] [id number] [place] [address] 49905- 7335 Oct, Bipolar I disorder, most recent episode (or current) mixed, unspecified 296.60 [facility] [address], [place] [address]- 9608 Sep, Diabetes 250.00 [facility] [address], [place] [address]- 5957 Sep, Bipolar I disorder, most recent episode (or current) mixed, unspecified 296.60 [facility] [address] [address]- 7601 Sep, [facility] [address], [place] [address]- 5993 Sep, [facility] [address], [place] [address]- 4101 Sep, Bipolar I disorder, most recent episode (or current) mixed, unspecified 296.60 [facility] [address], [place] [address]- 8830 Sep, Bipolar I disorder, most recent episode (or current) mixed, unspecified 296.60 [facility] [id number] [address] Sep, [facility] [id number] [address] Sep, Anxiety 300.00 ; Diabetes 250.00 and Hyperlipidemia 272.4 [facility] [id number] [place] [address] Aug, [facility] [id number] [place] [address] Aug, [facility] [id number] [place] [address] Aug, [facility] [id number] [place] [address] Aug, Bipolar I disorder, most recent episode (or current) mixed, unspecified 296.60 [facility] [id number] [place] [address] Aug, Generalized anxiety disorder 300.02 and Bipolar II disorder 296.89 [facility] [address] [address] [id number] [place] [address] 13909- 8311 July, Bipolar I disorder, most recent episode (or current) mixed, unspecified 296.60 [facility] [id number] [place] [address] 43605- 6566 July, Cough 786.2 [facility] [id number] [place] [address] 83136- 4482 July, Bipolar I disorder, most recent episode (or current) mixed, unspecified 296.60 [facility] [id number] [place] [address] 17612- 8176 Jun, Diabetes 250.00 [facility] [id number] [place] [address] 07687- 1456 14 Jun, 2014 [facility] [id number] [place] [address] 00220- 4850 Jun, [facility] [id number] [address] 3602 May, [facility] [place] [facility] [address] [facility] [id number] [place] [address]- 3144 May, [facility] [place] [facility] [address] [id number] [place] [address]- 3716 May, [facility] [place] [facility] [address] [id number] [place] [address]- 7510 May, [facility] [place] [facility] [address] [id number] [place] [address]- 0968 May, [facility] [place] [facility] [address] [id number] [place] [address]- 2438 May, [facility] [place] [facility] [address] [id number] [place] [address]- 7821 Apr, [facility] [place] [facility] [address] [facility] [id number] [place] [address]- 1053 Apr, [facility] [place] [facility] [address] [facility] [id number] [place] [address]- 7405 Apr, [facility] [place] [facility] [address] [facility] [id number] [place] [address]- 1901 Apr, [facility] [place] [facility] [address] [facility] [id number] [place] [address]- 0403 Apr, [facility] [place] [facility] [address] [facility] [id number] [place] [address]- 3013 Apr, [facility] [place] [facility] [address] [facility] [id number], [place] [address]- 6573 Apr, [facility] [place] [facility] [address] [facility] [id number] [place] [address]- 9124 Apr, [facility] [place] [facility] [address] [id number] [place] [address]- 1953 Mar, [facility] [place] [facility] [address] [facility] [id number] [place] [address]- 9209 Mar, [facility] [place] [facility] [address] [facility] [id number], [place] [address]- 8398 Mar, [facility] [address] [id number] [place] [address]- 4608 Mar, [facility] [place] [facility] [address] [id number] [place] [address]- 9048 Mar, [facility] [place] [facility] [address] [id number] [place] [address]- 0429 Mar, [facility] [place] [facility] [address] [id number] [place] [address]- 9857 Mar, [facility] [place] [facility] [address] [id number] [place] [address]- 9259 Mar, [facility] [place] [facility] [address] [id number] [place] [address]- 2485 Feb, [facility] [address] [id number] [place] [address]- 1990 Feb, [facility] [place] [facility] [address] [id number] [place] [address]- 9803 Feb, [facility] [place] [facility] [address] [id number] [place] [address]- 8838 Feb, [facility] [place] [facility] [address] [id number] [place] [address]- 5677 Feb, [facility] [place] [facility] [address] [id number] [place] [address]- 2872 Feb, [facility] [place] [facility] [address] [id number] [place] [address]- 3291 Feb, [facility] [place] [facility] [address] [id number] [place] [address]- 5820 Feb, [facility] [place] [facility] [address] [id number] [place] [address]- 0100 Feb, [facility] [place] [facility] [address] [id number] [place] [address]- 4670 Feb, [facility] [place] [facility] [address] [id number] [place] [address]- 0273 Jan, [facility] [place] [facility] [address] [id number] [place] [address]- 2758 Jan, [facility] [place] [facility] [address] [id number] [place] [address]- 2597 Jan, [facility] [place] [facility] [address] [id number] [place] [address]- 6584 Jan, [facility] [place] [facility] [address] [id number] [place] [address]- 0876 Jan, [facility] [place] [facility] [address] [id number] [place] [address]- 7091 Jan, [facility] [place] [facility] [address] [id number] [place] [address]- 5809 Jan, [facility] [place] [facility] [address] [id number] [place] [address]- 9164 Jan, [facility] [place] [facility] [address] [id number] [place] [address]- 7483 Jan, [facility] [place] [facility] [address] [id number] [place] [address]- 9981 Jan, [facility] [place] [facility] [address] [id number] [place] [address]- 5277 Jan, [facility] [place] [facility] [address] [id number] [place] [address]- 4451 Jan, [facility] [place] [facility] [address] [id number] [place] [address]- 4582 Jan, [facility] [place] [facility] [address] [id number] [place] [address]- 6044 Jan, [facility] [place] [facility] [address] [id number] [place] [address]- 8136 Jan, [facility] [place] [facility] [address] [id number] [place] [address]- 3564 Dec, [facility] [place] [facility] [address] [id number] [place] [address]- 1124 Dec, 2013 [facility] [place] [facility] [address] [id number] [place] [address]- 3192 Dec, 2013 [facility] [place] [facility] [address] [id number] [place] [address]- 4746 Dec, [facility] [place] [facility] [address] [id number] [place] [address]- 6316 Dec, [facility] [place] [facility] [address] [id number] [place] [address]- 6726 Dec, [facility] [place] [facility] [address] [id number] [place] [address]- 2537 Dec, [facility] [place] [facility] [address] [id number] [place] [address]- 4872 Dec, [facility] [place] [facility] [address] [id number], [place] [address]- 8289 25 Nov, 2013 [facility] [place] [facility] [address] [id number] [place] [address]- 3138 25 Sep, 2013 [facility] [place] [facility] [address] [id number], [place] [address]- 4908 10 Nov, 2013 [facility] [place] [facility] [address] [id number], [place] [address]- 6114 10 Sep, 2013 [facility] [place] [facility] [address] [id number], [place] [address]- 4349 08 Sep, 2013 [facility] [place] [facility] [address] [id number] [place] [address]- 1559 08 Sep, 2013 [facility] [place] [facility] [address] [id number], [place] [address]- 5863 08 Sep, 2013 [facility] [place] [facility] [address] [id number], [place] [address]- 8138 08 Sep, 2013 [facility] [place] [facility] [address] [id number] [place] [address]- 9406 08 Nov, 2013 [facility] [place] [facility] [address] [id number] [place] [address]- 6786 08 Nov, 2013 [facility] [place] [facility] [address] [id number] [place] [address]- 3376 04 Nov, 2013 [facility] [place] [facility] [address] [id number] [place] [address]- 3698 04 Nov, 2013 [facility] [place] [facility] [address] [id number] [place] [address]- 1273 03 Nov, 2013 [facility] [place] [facility] [address] [id number] [place] [address]- 4671 02 Nov, 2013 [facility] [place] [facility] [address] [id number] [place] [address]- 9747 Nov, 2013 [facility] [place] [facility] [address] [id number] [place] [address]- 7028 Oct, [facility] [place] [facility] [address] [id number] [place] [address]- 7734 Oct, [facility] [place] [facility] [address] [id number] [place] [address]- 9142 Oct, [facility] [place] [facility] [address] [id number] [place] [address]- 0949 Oct, [facility] [place] [facility] [address] [id number] [place] [address]- 0717 Oct, [facility] [place] [facility] [address] [id number] [place] [address]- 2544 Oct, [facility] [place] [facility] [address] [id number] [place] [address]- 3649 Oct, [facility] [place] [facility] [address] [id number] [place] [address]- 8698 Oct, [facility] [place] [facility] [address] [id number] [place] [address]- 6686 Oct, [facility] [place] [facility] [address] [id number] [place] [address]- 6579 Oct, [facility] [place] [facility] [address] [id number] [place] [address]- 5306 Oct, [facility] [place] [facility] [address] [id number] [place] [address]- 3063 Oct, [facility] [place] [facility] [address] [id number] [place] [address]- 8155 Oct, [facility] [place] [facility] [address] [id number] [place] [address]- 0138 Oct, [facility] [place] [facility] [address] [id number] [place] [address]- 2872 Sep, [facility] [place] [facility] [address] [id number] [place] [address]- 1222 Sep, [facility] [place] [facility] [address] [id number] [place] [address]- 1366 Sep, [facility] [place] [facility] [address] [id number] [place] [address]- 9964 Sep, [facility] [place] [facility] [address] [id number] [place] [address]- 7165 Sep, [facility] [place] [facility] [address] [id number] [place] [address]- 4752 Sep, [facility] [place] [facility] [address] [id number] [place] [address]- 1857 Sep, [facility] [place] [facility] [address] [id number] [place] [address]- 9878 Sep, [facility] [place] [facility] [address] [id number] [place] [address]- 0144 Aug, [facility] [place] [facility] [address] [id number] [place] [address]- 3898 Aug, [facility] [place] [facility] [address] [id number] [place] [address]- 4556 Aug, [facility] [place] [facility] [address] [id number] [place] [address]- 5442 Aug, [facility] [place] [facility] [address] [id number] [place] [address]- 4213 Aug, [facility] [place] [facility] [address] [id number] [place] [address]- 9104 Aug, [facility] [place] [facility] [address] [id number] [place] [address]- 9834 Aug, [facility] [place] [facility] [address] [id number] [place] [address]- 6603 Aug, [facility] [place] [facility] [address] [id number] [place] [address]- 8459 July, [facility] [place] [facility] [address] [id number] [place] [address]- 4559 July, [facility] [place] [facility] [address] [id number] [place] [address]- 2061 July, [facility] [place] [facility] [address] [id number] [place] [address]- 4422 July, [facility] [place] [facility] [address] [id number] [place] [address]- 5435 July, [facility] [place] [facility] [address] [id number] [place] [address]- 7865 July, [facility] [place] [facility] [address] [id number] [place] [address]- 8878 July, [facility] [place] [facility] [address] [id number] [place] [address]- 8030 July, [facility] [place] [facility] [address] [id number] [place] [address]- 2262 Jun, [facility] [place] [facility] [address] [id number] [place] [address]- 0014 Jun, [facility] [place] [facility] [address] [id number] [place] [address]- 6527 Jun, [facility] [address] [id number] [place] [address]- 0468 Jun, [facility] [address] [id number] [place] [address]- 8596 Jun, [facility] [address] [id number] [place] [address]- 1534 Jun, [facility] [address] [id number] [place] [address]- 4967 Jun, [facility] [address] [id number] [place] [address]- 2254 Jun, [facility] [address] [id number] [place] [address]- 3117 Jun, [facility] [address] [id number] [place] [address]- 4256 Jun, [facility] [address] [id number] [place] [address]- 3910 Jun, [facility] [address] [id number] [place] [address]- 2023 Jun, [facility] [address] [id number] [place] [address]- 7303 May, [facility] [place] [facility] [address] [id number] [place] [address]- 5134 May, [facility] [place] [facility] [address] [id number] [place] [address]- 6883 May, [facility] [place] [facility] [address] [id number] [place] [address]- 4332 May, [facility] [place] [facility] [address] [id number] [place] [address]- 1106 May, [facility] [place] [facility] [address] [id number] [place] [address]- 0889 May, [facility] [place] [facility] [address] [id number] [place] [address]- 8140 12 May, 2013 [facility] [place] [facility] [address] [id number] [place] [address]- 6521 12 May, 2013 [facility] [place] [facility] [address] [id number] [place] [address]- 4660 May, [facility] [place] [facility] [address] [id number] [place] [address]- 1459 May, [facility] [place] [facility] [address] [id number] [place] [address]- 2873 May, [facility] [place] [facility] [address] [id number] [place] [address]- 3945 May, [facility] [place] [facility] [address] [id number] [place] [address]- 6221 May, [facility] [place] [facility] [address] [id number] [place] [address]- 8288 May, [facility] [place] [facility] [address] [id number] [place] [address]- 5244 Apr, [facility] [place] [facility] [address] [id number] [place] [address]- 7065 Apr, [facility] [place] [facility] [address] [id number] [place] [address]- 3804 Apr, [facility] [place] [facility] [address] [id number] [place] [address]- 1495 Apr, [facility] [place] [facility] [address] [id number] [place] [address]- 8367 Apr, [facility] [place] [facility] [address] [id number] [place] [address]- 7584 Apr, [facility] [place] [facility] [address] [id number] [place] [address]- 3400 Mar, [facility] [place] [facility] [address] [id number] [place] [address]- 6208 30 Mar, 2013 [facility] [place] [facility] [address] [id number] [place] [address]- 5905 Mar, [facility] [place] [facility] [address] [id number] [place] [address]- 3594 Mar, [facility] [place] [facility] [address] [id number] [place] [address]- 9435 Mar, [facility] [place] [facility] [address] [id number] [place] [address]- 7995 Mar, [facility] [place] [facility] [address] [id number] [place] [address]- 4516 Mar, [facility] [place] [facility] [address] [id number] [place] [address]- 3624 Mar, [facility] [place] [facility] [address] [id number] [place] [address]- 1196 Mar, [facility] [place] [facility] [address] [id number] [place] [address]- 1969 Mar, [facility] [place] [facility] [address] [id number] [place] [address]- 5765 Mar, [facility] [place] [facility] [address] [id number] [place] [address]- 4986 Mar, [facility] [place] [facility] [address] [id number] [place] [address]- 2523 Mar, [facility] [place] [facility] [address] [id number] [place] [address]- 3273 Mar, [facility] [place] [facility] [address] [id number] [place] [address]- 1398 Feb, [facility] [place] [facility] [address] [id number] [place] 3759 Feb, [facility] [place] [facility] [address] [id number] [place] [address]- 0296 Feb, [facility] [place] [facility] [address] [id number] [place] [address]- 6317 Feb, [facility] [address] [id number] [place] [address]- 2705 Feb, [facility] [address] [id number] [place] [address]- 5031 Feb, [facility] [place] [facility] [address] [id number] [place] [address]- 0868 Feb, [facility] [address] [id number] [place] [address]- 8229 Feb, [facility] [address] [id number] [place] [address]- 8460 Feb, [facility] [address] [id number] [place] [address]- 0008 Feb, [facility] [address] [id number] [place] [address]- 9017 Feb, [facility] [address] [id number] [place] [address]- 1254 Feb, [facility] [address] [id number] [place] [address]- 8649 Feb, [facility] [place] [facility] [address] [id number] [place] [address]- 3643 Feb, [facility] [place] [facility] [address] [id number] [place] [address]- 5293 Feb, [facility] [place] [facility] [address] [id number] [place] [address]- 5069 Feb, [facility] [place] [facility] [address] [id number] [place] [address]- 1962 Dec, [facility] [place] [facility] [address] [id number] [place] [address]- 4897 Dec, [facility] [place] [facility] [address] [id number] [place] [address]- 1442 16 Dec, 2012 [facility] [place] [facility] [address] [id number] [place] [address]- 2472 16 Dec, 2012 [facility] [place] [facility] [address] [id number] [place] [address]- 3544 16 Dec, 2012 [facility] [place] [facility] [address] [id number] [place] [address]- 07[address] 16 Dec, 2012 [facility] [place] [facility] [address] [id number] [place] [address] 14 Dec, 2012 [facility] [place] [facility] [address] [id number] [place] [address] 14 Dec, 2012 [facility] [place] [facility] [address] [id number] [place] [address] 10 Dec, 2012 [facility] [place] [facility] [address] [id number] [place] [address] 80[address] 10 Dec, 2012 [facility] [place] [facility] [address] [id number] [place] [address] 10 Dec, 2012 [facility] [place] [facility] [address] [id number] [place] [address] 10 Dec, 2012 [facility] [place] [facility] [address] [id number] [place] [address] 03 Dec, 2012 [facility] [place] [facility] [address] [id number], [place] [address] 25 Sep, 2012 [facility] [place] [facility] [address] [id number], [place] [address] 20 Sep, 2012 [facility] [place] [facility] [address] [id number] [place] [address] 2547 18 Sep, 2012 [facility] [place] [facility] [address] [id number] [place] [address] 5061 16 Sep, 2012 [facility] [place] [facility] [address] [id number] [place] [address] 1366 12 Sep, 2012 [facility] [place] [facility] [address] [id number] [place] [address] 4968 11 Nov, 2012 [facility] [address] [id number] [place] [address] 05 Nov, 2012 [facility] [place] [facility] [address] [id number] [place] [address] Oct, [facility] [address] [id number] [place] [address] Oct, [facility] [address] [id number] [place] [address] Sep, [facility] [address] [id number] [place] [address] Sep, [facility] [address] [id number] [place] [address] Sep, [facility] [address] [id number] [place] [address] 47[address] Sep, [facility] [address] [id number] [place] [address] 2498 Sep, [facility] [address] [id number] [place] [address] 42[address] Sep, [facility] [address] [id number] [place] [address] 9683 Sep, [facility] [address] [id number] [place] [address] 37[address] Aug, [facility] [address] [id number] [place] [address] 18 Aug, 2012 [facility] [place] [facility] [address] [id number] [place] [address] 4[address] 16 Aug, 2012 [facility] [place] [facility] [address] [id number] [place] [address] 8678 13 Aug, 2012 [facility] [place] [facility] [address] [id number] [place] [address] Aug, [facility] [address] [id number] [place] [address] Aug, [facility] [address] [id number] [place] [address] Aug, [facility] [address] [id number] [place] [address] Aug, [facility] [place] [facility] [address] [id number] [place] [address] July, [facility] [address] [id number] [place] [address] July, [facility] [address] [id number] [place] [address] 48[address] July, [facility] [place] [facility] [address] [id number] [place] [id number] July, [facility] [address] [id number] [place] [address] July, [facility] [address] [id number] [place] [address] Jun, [facility] [address] [id number] [place] [address] 9[address] May, [facility] [address] [id number] [place] [address] May, [facility] [place] [facility] [address] [id number] [place] [address] May, [facility] [place] [facility] [address] [id number] [place] [address] Apr, [facility] [place] [facility] [address] [id number] [place] [address] 9716 Apr, [facility] [place] [facility] [address] [id number] [place] [address] 2546 Apr, [facility] [place] [facility] [address] [id number] [place] [address] 5499 29 Mar, 2012 [facility] [address] [id number] [place] [address] Mar, [facility] [address] [id number] [place] [address] 1365 28 Mar, 2012 [facility] [address] [id number] [place] [address] 5[address] 14 Mar, 2012 [facility] [address] [id number] [place] [address] 7937 10 Mar, 2012 [facility] [address] [id number] [place] [address]12 Mar, [facility] [address] [id number] [place] [address] 357[address] Mar, [facility] [address] [id number] [place] [address] 7718 31 Feb, 2012 [facility] [address] [id number] [place] [address] 56[address] 31 Feb, 2012 [facility] [address] [id number] [place] [address] 1640 18 Feb, 2012 [facility] [address] [id number] [place] [address] 18 Feb, 2012 [facility] [address] [id number] [place] [address] 6421 17 Feb, 2012 [facility] [address] [id number] [place] [address] 7998 17 Feb, 2012 [facility] [address] [id number] [place] [address] 78[address] Feb, [facility] [place] [facility] [address] [id number] [place] [address] 6[address] Feb, [facility] [address] [address] [id number] [place] [address] Jan, [facility] [place] [facility] [address] [id number] [place] [address] Jan, [facility] [place] [facility] [address] [id number] [place] [address] Jan, [facility] [place] [facility] [address] [id number] [place] [address] Jan, [facility] [place] [facility] [address] [id number] [place] [address] Jan, [facility] [place] [facility] [address] [id number] [place] [address] Jan, [facility] [place] [facility] [address] [id number] [place] [address] 1073 Jan, [facility] [place] [facility] [address] [id number] [place] [address]47 Jan, [facility] [place] [facility] [address] [id number] [place] [address] Jan, [facility] [place] [facility] [address] [id number] [place] [address] Jan, [facility] [place] [facility] [address] [id number] [place] [address] 49[address] Jan, [facility] [place] [facility] [address] [id number] [place] [address] 6[address] Jan, [facility] [place] [facility] [address] [id number] [place] [address] 2963 Jan, [facility] [place] [facility] [address] [id number] [place] [address]883 Jan, [facility] [place] [facility] [address] [id number] [place] [address] 3[address] Jan, [facility] [place] [facility] [address] [id number] [place] [address] 90[address] Jan, [facility] [place] [facility] [address] [id number] [place] [address] 0184 17 Dec, 2011 [facility] [place] [facility] [address] [id number] [place] [address] 9765 17 Dec, 2011 [facility] [place] [facility] [address] [id number] [place] [address]- 7646 16 Dec, 2011 [facility] [place] [facility] [address] [id number] [place] [address] 16 Dec, 2011 [facility] [place] [facility] [address] [id number] [place] [address] Dec, [facility] [place] [facility] [address] [id number] [place] [address] 9714 Dec, [facility] [place] [facility] [address] [id number] [place] [address] 0986 Dec, [facility] [place] [facility] [address] [id number] [place] [address] 1218 Dec, [facility] [place] [facility] [address] [id number] [place] [address]- [address]262 08 Dec, 2011 [facility] [place] [facility] [address] [id number] [place] [address] 7616 05 Dec, 2011 [facility] [place] [facility] [address] [id number] [place] [address] 3[address] 18 Nov, 2011 [facility] [place] [facility] [address] [id number], [place] [address] 13 Nov, 2011 [facility] [place] [facility] [address] [id number], [place] [address] 24 Oct, 2011 [facility] [place] [facility] [address] [id number] [place] [address] 6075 Oct, [facility] [place] [facility] [address] [id number], [place] [address] Oct, [facility] [place] [facility] [address] [id number] [place] [address] 1807 Oct, [facility] [place] [facility] [address] [id number] [place] [address] 15 Oct, 2011 [facility] [place] [facility] [address] [id number] [place] [address] 1401 Oct, [facility] [place] [facility] [address] [id number] [place] [address] 2878 Oct, [facility] [place] [facility] [address] [id number] [place] [address] 0104 Sep, [facility] [place] [facility] [address] [id number] [place] [address] 2027 Aug, [facility] [place] [facility] [address] [id number] [place] [address] 2954 Aug, [facility] [place] [facility] [address] [id number] [place] [address] 2546 Aug, [facility] [place] [facility] [address] [id number] [place] [address] 7633 Aug, [facility] [place] [facility] [address] [id number] [place] [address] 8677 Aug, [facility] [place] [facility] [address] [id number] [place] [address] July, [facility] [place] [facility] [address] [id number] [place] [address] July, [facility] [place] [facility] [address] [id number] [place] [address] 8886 July, [facility] [place] [facility] [address] [id number] [place] [address] 9416 Jun, [facility] [place] [facility] [address] [id number] [place] [address]12 Jun, [facility] [place] [facility] [address] [id number] [place] [id number] [address] Jun, [facility] [place] [facility] [address] [id number] [place] [address] 4489 Jun, [facility] [place] [facility] [address] [id number] [place] [address] 0905 30 May, 2011 [facility] [place] [facility] [address] [id number] [place] [address] 7356 30 May, 2011 [facility] [address] [id number] [place] [address] 8580 29 May, 2011 [facility] [place] [facility] [address] [id number] [place] [address] 3908 28 May, 2011 [facility] [address] [id number] [place] [address] 8568 May, [facility] [address] [id number] [place] [address] 5176 22 May, 2011 [facility] [address] [id number] [place] [address] 8802 May, [facility] [address] [id number] [place] [address] 9892 May, [facility] [address] [id number] [place] [address] 7471 May, [facility] [address] [id number] [place] [address]- 6242 05 May, 2011 [facility] [place] [facility] [address] [id number] [place] [address] 1546 May, [facility] [place] [facility] [address] [id number] [place] [address]- 2486 May, [facility] [place] [facility] [address] [id number] [place] [address] 9534 Mar, [facility] [place] [facility] [address] [id number] [place] [address] 7186 Mar, [facility] [place] [facility] [address] [id number] [place] [address] 4642 Feb, [facility] [place] [facility] [address] [id number] [place] [address] 0555 20 Feb, 2011 [facility] [place] [facility] [address] [id number] [place] [address] 9761 20 Feb, 2011 [facility] [place] [facility] [address] [id number] [place] [address] 15 Feb, 2011 [facility] [place] [facility] [address] [id number] [place] [address]- 8138 13 Feb, 2011 [facility] [place] [facility] [address] [id number] [place] [address]- 8193 13 Feb, 2011 [facility] [place] [facility] [address] [id number] [place] [address]- 1462 Feb, [facility] [place] [facility] [address] [id number] [place] [address]- 4521 28 Jan, 2011 [facility] [place] [facility] [address] [id number] [place] [address]- 8111 Jan, [facility] [place] [facility] [address] [id number] [place] [address]- 0145 Jan, [facility] [place] [facility] [address] [id number] [place] [address]- 3837 Jan, [facility] [place] [facility] [address] [id number] [place] [address]- 7302 Jan, [facility] [place] [facility] [address] [id number], [place] [address] 4786 Jan, [facility] [place] [facility] [address] [id number] [place] [address]- 3946 Dec, [facility] [place] [facility] [address] [id number] [place] [address]- 1996 Dec, [facility] [place] [facility] [address] [id number] [place] [address]- 7273 Dec, [facility] [place] [facility] [address] [id number] [place] [address]- 7969 July, [facility] [place] [facility] [address] [id number] [place] [address]- 9592 July, [facility] [address] [id number] [place] [address]- 2040 Feb, [facility] [place] [facility] [address] [id number] [place] [address]- 9103 Jan, [facility] [address] [id number] [place] [address]- 8935 Dec, [facility] [place] [facility] [address] [id number] [place] [address]- 0629 Dec, [facility] [id number] [place] [address], [place] [address]228 Sep, [facility] [address] [facility] [id number] [place] [address]- 3339 Aug, [facility] [address] [id number] [place] [address]- 2128 Jun, [facility] [address] [id number] [place] [address]- 4161 Jun, [facility] [address] [facility] [id number] [place] [address]- 4612 Jan, [facility] [address] [facility] [id number] [place] [address]- 6293 Jan, [facility] [place] [facility] [address] [id number] [place] [address]- 3108 Jan, [facility] [place] [facility] [address] [id number], [place] [address] 5315 Jan, [facility] [place] [facility] [address] [id number] [place] [address]- 7294 29 Dec, 2008 [facility] [place] [facility] [address] [id number] [place] [address]- 1263 Dec, [facility] [place] [facility] [address] [id number] [place] [address]- 6159 Dec, [facility] [address] [facility] [id number], [place] [address] 2776 Nov, [facility] [id number], [place] [address] 8366 July, [facility] [address] [id number], [place] [address]76 May, [facility] [id number], [place] [address]16 Apr, [facility] [address] [facility] [id number], [place] [address]- 2852 Feb, [facility] [id number], [place] [address] 3946 Dec, IMMUNIZATIONS No Known Immunizations SOCIAL HISTORY Never Assessed REASON FOR VISIT flu symptoms- States she is sneezing, ears are clogged, chills, diarreah- Nausea- started on Wednesday--Roberto Torres RN PLAN OF CARE Activity Details Follow Up prn Reason: VITAL SIGNS Height 64 in 2017-02-22 Weight 186 lbs 2017-02-22 Temperature 98.4 degrees Fahrenheit 2017-02-22 Heart Rate 86 bpm 2017-02-22 Respiratory Rate 18 2017-02-22 BMI 31.92 kg/m2 2017-02-22 Blood pressure systolic 122 mmHg 2017-02-22 Blood pressure diastolic 78 mmHg 2017-02-22 MEDICATIONS Medication Instructions Dosage Frequency Start Date End Date Duration Status Amaryl 4 MG Orally Once a day in AM 1 tablet with breakfast or the first main meal of the day Sep, 30 day(s) Active NovoLog Mix 70/30 Flexpen (70-30) 100 UNIT/ML Subcutaneous 2 times a day Inject 110 12h Active Test strips Contour test strips 2 times a day test blood sugar 12h Aug, Active Victoza 18 MG/3ML Subcutaneous Once a day inject 0.3 ml 24h 90 days Active Lamictal 200 MG Orally every evening 1 tablet May, Active Actos 45 MG Orally Once a day #60 samples 1 tablet Apr, Active Tizanidine HCl 4 MG Orally Once a day 1 tablet as needed at bedtime 24h July, 30 days Active Toprol XL 25 mg take 1 tablet by Oral route 1 time per day take at hs 10 May, 2013 Active Aspirin Adult Low Strength 81 MG Orally Once a day 1 tablet 24h Active Farxiga 10 MG Orally Once a day 1 tablet 24h Apr, 90 days Active Ativan 0.5 MG Orally Once a day, no early refills 1 tablet as needed Sep, Active Celexa 40 MG Orally Once a day 1 tablet 24h May, Active RESULTS No Results PROCEDURES No Known [...]
--- OUTSIDE RECORDS SUMMARY | 2017-09-01 18:42 | XMS REPORT ---
Author Author ARMAAN STEPHEN Organization [facility] Address [address] [place] [address] Care Team Providers Care Line Cook Name Role Phone ARMAAN STEPHEN Unavailable PROBLEMS Type Condition ICD9-CM Code [id number] Code Onset Dates Condition Status SNOMED Code Problem Diabetes E11.9 Active 946130210 Problem Lumbar radiculopathy M54.16 Active 305464720 Problem Irritable bowel syndrome with diarrhea K58.0 Active 575918433 Problem New daily persistent headache G44.52 Active 949226410 Problem Acute bilateral low back pain with right-sided sciatica M54.41 Active 206612544 Problem long-term current 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 Z79.891 Active 607321703 Problem Bipolar 1 disorder F31.9 Active 144750471 Problem Hyperlipidemia, unspecified E78.5 Active 91390388 Problem Type 2 diabetes mellitus with complication E11.8 Active 873632370 Problem Post laminectomy syndrome M96.1 Active 66146222 Problem Eye exam normal Z01.00 Active 396259832 Problem Bipolar disorder, in partial remission, most recent episode manic F31.73 Active 72999586 Problem Extreme poverty Z59.5 Active 19977196 Problem Obesity, unspecified 278.00 Active 724333842 Problem 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 [id number] [address] Aug, [facility] [address] 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 and Extreme poverty Z59.5 [place] [id number] [place] [address] 20073- 2687 Apr, Diabetes E11.9 and Breast cancer screening Z12.31 [place] [address] 24159- 4080 Apr, Bipolar 1 disorder F31.9 and 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 [place] [address] 14093- 3535 Mar, Bipolar 1 disorder F31.9 ; 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 and Extreme poverty Z59.5 [place] [id number] [place] [address] 15699- 5297 Mar, New daily persistent headache G44.52 ; Leg pain 729.5 and History of carpal tunnel release Z98.890 [place] [id number] [place] [address] 96964- 4186 Mar, Hyperlipidemia, unspecified E78.5 [place] [id number] [place] [address] 33571- 5317 Mar, Bipolar 1 disorder F31.9 ; 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 and Extreme poverty Z59.5 [place] [id number] [place] [address] 63634- 9545 Feb, Bipolar 1 disorder F31.9 ; 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 [place] [address] 92410- 1420 Jan, Bipolar 1 disorder F31.9 ; 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 and Extreme poverty Z59.5 [place] [address] 80512- 8515 Dec, Diabetes E11.9 [place] [address] 27696- 2194 Dec, Diabetes E11.9 and Encounter for immunization Z23 [place] [address] 96275- 5918 Dec, Bipolar 1 disorder F31.9 ; 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 and Extreme poverty Z59.5 [place] [id number] [place] [address] 91996- 9155 Dec, Back pain M54.9 [place] [id number] [place] [address] 15155- 1655 Nov, [place] [address] 78637- 1324 Nov, Bipolar 1 disorder F31.9 ; 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 and Extreme poverty Z59.5 [place] [id number] [place] [address] 44877- 9921 Nov, Bipolar 1 disorder F31.9 ; 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 and Extreme poverty Z59.5 [place] [address] [place] [address] 93359- 7199 Oct, 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9 ; 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 and Extreme poverty Z59.5 [place] [id number] [place] [address] 17289- 8532 Sep, 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 and Bipolar 1 disorder F31.9 [place] [id number] [place] [address] 40866- 1211 Sep, Bipolar 1 disorder F31.9 ; 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 and Extreme poverty Z59.5 [place] [address] [place] [address] 74093- 5175 Aug, Diabetes E11.9 ; Hyperlipidemia, unspecified E78.5 and Lumbar radiculopathy M54.16 [place] [id number] [place] [address] 67312- 8275 Aug, Bipolar 1 disorder F31.9 ; 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 and Extreme poverty Z59.5 [place] [id number] [place] [address] 61844- 7415 Aug, [facility] [address] [address] 5375 Aug, [facility] [id number] [place] [address] 35277- 5333 Aug, [facility] [id number] [place] [address] 74648- 4393 July, [place] [id number] [place] [address] 58941- 9892 July, Acute bilateral low back pain with right-sided sciatica M54.41 [place] [id number] [place] [address] 88358- 3178 July, Bipolar 1 disorder F31.9 ; 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 and Extreme poverty Z59.5 [place] [id number] [place] [address] 85260- 7229 July, Back pain M54.9 and Diabetes E11.9 [place] [id number] [place] [address] 44839- 1483 Jun, Bipolar 1 disorder F31.9 ; 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 and Extreme poverty Z59.5 [place] [address] [place] [address] 19525- 8871 Jun, Bipolar 1 disorder F31.9 ; 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 and Extreme poverty Z59.5 [place] [address] [address] 4486 May, Visit for pelvic exam Z01.419 ; Acute vaginitis N76.0 and Diabetes E11.9 [place] [address] [place] [address] 87891- 3783 May, Bipolar 1 disorder F31.9 ; 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 and Extreme poverty Z59.5 [place] [address], [place] [address] 9073 May, [place] [id number] [place] [address] 03426- 3932 May, [facility] [id number] [place] [address] 32109- 4015 May, Bipolar 1 disorder F31.9 ; 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 and Extreme poverty Z59.5 [place] [id number] [place] [address] 96448- 0219 May, Hyperlipidemia, unspecified E78.5 [place] [id number] [place] [address] 59487- 9101 13 Apr, 2016 Breast cancer screening Z12.39 [place] [address] 76801- 4857 Mar, [place] [id number] [place] [address] 94250- 9321 Mar, Bipolar disorder, current episode mixed, unspecified F31.60 [place] [id number] [place] [address] 68243- 0649 Mar, Bipolar 1 disorder F31.9 ; 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 and Extreme poverty Z59.5 [place] [id number] [place] [address] 90744- 5936 Feb, Acute nasopharyngitis J00 [place] [id number] [place] [address] 66424- 8287 Feb, Dental examination Z01.20 [place] [id number] [place] [address] 91716- 7283 Feb, Dental cavities K02.9 and Chronic periodontitis, unspecified K05.30 [place] [address] 34212- 4456 Feb, Low back pain M54.5 and Extreme poverty Z59.5 [place] [id number] [place] [address] 55510- 4153 Feb, [place] [address] [place] [address]- 4779 05 Feb, 2016 Routine gynecological examination V72.31 ; Breast cancer screening Z12.39 and Herpes simplex type 1 infection B00.9 [place] [id number] [place] [address] [address] 02 Feb, 2016 Diabetes E11.9 [place] [id number] [place] [address] 4676 Feb, Encounter for dental examination and cleaning without abnormal findings Z01.20 [place] [id number] [place] [address] 47069- 3625 Jan, Hyperlipidemia, unspecified E78.5 [place] [address] 45745- 6951 Jan, Bipolar 1 disorder F31.9 ; 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 and Extreme poverty Z59.[address] 19097- 9871 18 Jan, 2016 Diabetes E11.9 [place] [address] 72357- 1579 17 Jan, 2016 Diabetes E11.9 [place] [address] 99220- 7484 14 Dec, 2015 Bipolar 1 disorder F31.9 ; 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 and Extreme poverty Z59.5 [place] [id number] [place] [address] 79861- 5388 13 Dec, 2015 Bipolar disorder, current episode mixed, unspecified F31.60 and 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 [place] [id number] [place] [address] 79927- 8017 16 Nov, 2015 Bipolar 1 disorder F31.9 ; 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 ; Extreme poverty Z59.5 and Non compliance with medical treatment Z91.19 [place] [id number] [place] [address] 28035- 8806 Oct, [place] [id number] [place] [address] 15638- 1650 Oct, Dental caries K02.9 [place] [id number] [place] [address] 67850- 1134 Oct, Low back pain M54.5 and Other chronic pain G89.29 [place] [id number] [place] [address] 95221- 0577 Oct, Bipolar 1 disorder F31.9 ; 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 ; Extreme poverty Z59.5 and Non compliance with medical treatment Z91.19 [place] [id number] [place] [address] 48598- 2720 Oct, [place] [id number] [place] [address] 15930- 4669 Oct, [place] [id number] [place] [address] 17988- 5617 Oct, Dental examination Z01.20 [place] [id number] [place] [address] 96620- 3300 Oct, Bipolar 1 disorder F31.9 ; 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 ; Extreme poverty Z59.5 and Non compliance with medical treatment Z91.19 [place] [address] [place] [address] 16258- 0420 Oct, [place] [id number] [place] [address] 89631- 5244 Sep, Type 2 diabetes mellitus with complication E11.8 [place] [address] [place] [address] 28262- 8684 Sep, Bipolar disorder, current episode mixed, unspecified F31.60 [place] [address] [place] [address] 38358- 9166 Sep, Bipolar disorder, current episode mixed, unspecified F31.60 [place] [address] [place] [address] 58868- 7299 Sep, Bipolar disorder, in partial remission, most recent episode manic F31.73 ; 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 ; Extreme poverty Z59.5 and Non compliance with medical treatment Z91.19 [place] [address] [place] [address] 26792- 8763 Aug, Bipolar disorder, in partial remission, most recent episode manic F31.73 ; 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 ; Extreme poverty Z59.5 and Non compliance with medical treatment Z91.19 [place] [address] [place] [address] 37427- 3659 Aug, Bipolar disorder, in partial remission, most recent episode manic F31.73 ; 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 ; Extreme poverty Z59.5 and Non compliance with medical treatment Z91.19 [place] [address] [place] [address] 20948- 0303 Aug, [place] [id number] [place] [address] 71937- 3398 July, Bipolar disorder, in partial remission, most recent episode manic F31.73 ; 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 ; Extreme poverty Z59.5 and Non compliance with medical treatment Z91.19 [place] [address] [place] [address] 15414- 7514 July, Bipolar disorder, current episode mixed, unspecified F31.60 [place] [address] [place] [address] 30118- 6533 July, Bipolar disorder, in partial remission, most recent episode manic F31.73 ; 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 ; Extreme poverty Z59.5 and Non compliance with medical treatment Z91.19 [place] [id number] [place] [address] 09367- 5558 July, long-term current 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 Z79.891 and Chronic pain G89.29 [place] [address] [place] [address] 56290- 0273 Jun, long-term current 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 Z79.891 and Bipolar 1 disorder F31.9 [place] [address], [place] [address]- 2205 Jun, [facility] [address], [place] [address]- 7072 Jun, [place] [address] [place] [address] 28474- 7575 Jun, [facility] [address] [place] [address] 18929- 1260 Jun, Bipolar disorder, in partial remission, most recent episode manic F31.73 ; 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 and Non compliance with medical treatment Z91.19 [place] [address] [place] [address] 98815- 1669 May, Bipolar disorder, in partial remission, most recent episode manic F31.73 ; 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 and Non compliance with medical treatment Z91.19 [place] [address] [place] [address] 76295- 9589 May, Bipolar disorder, in partial remission, most recent episode manic F31.73 [place] [address] [place] [address] 51303- 3565 May, Diabetes E11.9 and Chronic pain G89.29 [place] [address], [place] [address]- 7165 14 May, 2015 [place] [address] [place] [address] 43692- 4001 May, Bipolar disorder, in partial remission, most recent episode manic F31.73 ; Non compliance with medical treatment Z91.19 and 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 [place] [address], [place] [address]- 3504 May, Type 2 diabetes mellitus with complication E11.8 and Back pain M54.9 [place] [id number] [place] [address] 62714- 6643 May, Bipolar disorder, in partial remission, most recent episode manic F31.73 and 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 [place] [id number] [place] [address] 17314- 4758 Apr, [place] [id number] [place] [address] 27139- 3861 Apr, [place] [address] 57227- 8063 Apr, [place] [id number] [place] [address] 78213- 1867 Apr, Diabetes E11.9 ; Irritable bowel syndrome with diarrhea K58.0 and Lumbar radiculopathy M54.16 [id number] [place] [address] 58000- 0585 Apr, Breast screening Z12.39 [place] [id number] [place] [address] 98172- 4670 Apr, Bipolar disorder, in partial remission, most recent episode manic F31.73 ; Non compliance with medical treatment Z91.19 and 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 [place] [id number] [place] [address] 12562- 5803 Mar, Edema, unspecified type R60.9 and Type 2 diabetes mellitus with complication E11.8 [place] [id number] [place] [address] 06553- 2606 Mar, Bipolar disorder, in partial remission, most recent episode manic F31.73 ; Non compliance with medical treatment Z91.19 ; 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 and Extreme poverty Z59.5 [place] [id number] [place] [address] 68477- 6485 Mar, Bipolar disorder, current episode mixed, unspecified F31.60 ; 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 ; Extreme poverty Z59.5 and Generalized anxiety disorder F41.[address], [place] [address]- 4854 Mar, Bipolar disorder, in partial remission, most recent episode manic F31.73 ; 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 and Extreme poverty Z59.5 [place] [address], [place] [address]- 6139 Feb, Bipolar disorder, in partial remission, most recent episode manic F31.73 ; 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 and Extreme poverty Z59.5 [place] [address], [place] [address]- 2592 Feb, Bipolar disorder, in partial remission, most recent episode manic F31.73 ; 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 and Extreme poverty Z59.5 [place] [address], [place] [address]- 4627 Feb, [place] [id number] [place] [address] 27552- 7023 Jan, Type 2 diabetes mellitus with complication E11.8 and Petechiae R23.3 [place] [address], [place] [address]- 9353 Jan, Type 2 diabetes mellitus with complication E11.8 ; Edema, unspecified R60.9 ; Petechiae R23.3 and Diabetes E11.9 [place] [address], [place] [address]- 7208 Jan, Bipolar disorder, in partial remission, most recent episode manic F31.73 ; 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 and Extreme poverty Z59.5 [place] [address], [place] [address]- 6861 Jan, Bipolar disorder, in partial remission, most recent episode manic F31.73 ; 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 and Extreme poverty Z59.5 [place] [address], [place] [address]- 1626 Dec, Bipolar disorder, in partial remission, most recent episode manic F31.73 [facility] [id number] [place] [address] 69206- 1122 Dec, Edema, due to unspecified malnutrition type, unspecified edema R60.9 and Essential hypertension I10 [facility] [id number] [place] [address] 06797- 8529 Dec, Bipolar disorder, in partial remission, most recent episode manic F31.73 [facility] [address] 55713- 7501 Nov, Bipolar I disorder, most recent episode (or current) mixed, unspecified 296.60 [place] [address] 54062- 7676 Nov, Stress incontinence, female 625.6 ; Back pain 724.5 and Leg pain 729.5 [place] [address] 73874- 0689 Nov, Generalized anxiety disorder 300.02 and Bipolar II disorder 296.89 [facility] [address] 44553- 3966 Nov, Bipolar I disorder, most recent episode (or current) mixed, unspecified 296.60 [facility] [id number] [place] [address] 58636- 9498 Oct, [facility] [id number] [place] [address] 10829- 8241 Oct, [facility] [id number] [place] [address] 26869- 4300 Oct, [facility] [address] 42471- 5183 Oct, Bipolar I disorder, most recent episode (or current) mixed, unspecified 296.60 [facility] [id number] [place] [address] 62331- 2620 Sep, Diabetes 250.00 [facility] [address] 81377936- 8981 Sep, Bipolar I disorder, most recent episode (or current) mixed, unspecified 296.60 [facility] [address] 0372 Sep, [facility] [address] 6432 Sep, [facility] [id number] [place] [address] 10522- 2253 Sep, Bipolar I disorder, most recent episode (or current) mixed, unspecified 296.60 [facility] [address] [place] [address] 037623- 8635 Sep, Bipolar I disorder, most recent episode (or current) mixed, unspecified 296.60 [facility] [address], [place] [address]- 0700 Sep, [facility] [id number] [place] [address] 93655- 1721 Sep, Anxiety 300.00 ; Diabetes 250.00 and Hyperlipidemia 272.4 [facility] [address] 5597 Aug, [facility] [id number] [address] Aug, [facility] [id number] [address] Aug, [facility] [id number] [id number] Aug, Bipolar I disorder, most recent episode (or current) mixed, unspecified 296.60 [facility] [id number] [address] Aug, Generalized anxiety disorder 300.02 and Bipolar II disorder 296.89 [facility] [id number], [place] [address] July, Bipolar I disorder, most recent episode (or current) mixed, unspecified 296.60 [facility] [id number], [place] [address] July, Cough 786.2 [facility] [id number] [address] July, Bipolar I disorder, most recent episode (or current) mixed, unspecified 296.60 [facility] [address] [address] 30 Jun, 2014 Diabetes 250.00 [facility] [address] [place] [address] Jun, [facility] [id number] [place] [address] Jun, [facility] [id number] [address] May, [facility] [address] [id number], [place] [address] May, [facility] [id number], [place] [address] May, [facility] [id number], [place] [address] May, [facility] [id number], [place] [address] May, [facility] [id number], [place] [address] May, [facility] [id number] [address] Apr, [facility] [id number], [place] [address] Apr, [facility] [id number], [place] [address] Apr, [facility] [place] [facility] [address] [facility] [id number] [place] [address]- [address] 11 Apr, 2014 [facility] [place] [facility] [address] [id number] [place] [address]- [address]41 Apr, 2014 [facility] [place] [facility] [address] [id number] [place] [address]- 9938 Apr, 2014 [facility] [place] [facility] [address] [id number] [place] [address]- 3121 Apr, [facility] [place] [facility] [address] [id number] [place] [address]- 8941 Apr, [facility] [place] [facility] [address] [id number] [place] [address]- 9437 Mar, [facility] [place] [facility] [address] [id number] [place] [address]- 0019 Mar, [facility] [place] [facility] [address] [id number] [place] [address]- 3260 Mar, [facility] [place] [facility] [address] [id number] [place] [address]- 7119 Mar, [facility] [place] [facility] [address] [id number] [place] [address]- 9624 Mar, [facility] [place] [facility] [address] [id number] [place] [address]- 9111 Mar, [facility] [place] [facility] [address] [id number] [place] [address]- 4315 Mar, [facility] [place] [facility] [address] [id number] [place] [address]- 1165 Mar, [facility] [place] [facility] [address] [id number] [place] [address]- 0711 Feb, [facility] [place] [facility] [address] [id number] [place] [address]- 6090 Feb, [facility] [place] [facility] [address] [id number] [place] [address]- 2966 Feb, [facility] [place] [facility] [address] [id number] [place] [address]- 8317 Feb, [facility] [place] [facility] [address] [id number] [place] [address]- 4667 Feb, [facility] [place] [facility] [address] [id number] [place] [address]- 1590 Feb, [facility] [place] [facility] [address] [id number] [place] [address]- 4196 Feb, [facility] [place] [facility] [address] [id number] [place] [address]- 7399 Feb, [facility] [place] [facility] [address] [id number] [place] [address]- 3568 Feb, [facility] [place] [facility] [address] [id number] [place] [address]- 1233 Feb, [facility] [place] [facility] [address] [id number] [place] [address]- 5809 Jan, [facility] [place] [facility] [address] [id number] [place] [address]- 6651 Jan, [facility] [place] [facility] [address] [id number] [place] [address]- 5556 Jan, [facility] [place] [facility] [address] [id number], [place] [address] 1754 Jan, [facility] [place] [facility] [address] [id number], [place] [address] 0090 Jan, [facility] [place] [facility] [address] [id number] [place] [address]- 7792 Jan, [facility] [place] [facility] [address] [id number] [place] [address]- 8802 Jan, [facility] [place] [facility] [address] [id number] [place] [address]- 4549 Jan, [facility] [place] [facility] [address] [id number] [place] [address]- 7447 Jan, [facility] [place] [facility] [address] [id number] [place] [address]- 1000 Jan, [facility] [place] [facility] [address] [id number] [place] [address]- 2204 Jan, [facility] [place] [facility] [address] [id number] [place] [address]- 8033 Jan, [facility] [place] [facility] [address] [id number] [place] [address]- 3606 Jan, [facility] [place] [facility] [address] [id number] [place] [address]- 3494 Jan, [facility] [place] [facility] [address] [id number] [place] [address]- 4104 Jan, [facility] [place] [facility] [address] [id number] [place] [address]- 9974 Dec, [facility] [place] [facility] [address] [id number] [place] [address]- 4464 Dec, [facility] [place] [facility] [address] [id number] [place] [address]- 5976 Dec, [facility] [place] [facility] [address] [facility] [id number] [place] [address]- 8727 Dec, [facility] [place] [facility] [address] [id number] [place] [address]- 7140 Dec, [facility] [place] [facility] [address] [id number] [place] [address]- 8532 Dec, [facility] [place] [facility] [address] [id number] [place] [address]- 9700 Dec, [facility] [place] [facility] [address] [id number] [place] [address] Dec, [facility] [place] [facility] [address] [id number] [place] [address]- 2546 Nov, [facility] [place] [facility] [address] [id number] [place] [address]- 8006 25 Sep, 2013 [facility] [place] [facility] [address] [id number] [place] [address] 2546 10 Sep, 2013 [facility] [place] [facility] [address] [id number] [place] [address]- 3216 10 Sep, 2013 [facility] [place] [facility] [address] [id number] [place] [address] 2546 08 Sep, 2013 [facility] [place] [facility] [address] [id number] [place] [address]- 3895 08 Sep, 2013 [facility] [place] [facility] [address] [id number] [place] [address]- 7615 08 Sep, 2013 [facility] [place] [facility] [address] [id number] [place] [address]- 4871 08 Sep, 2013 [facility] [place] [facility] [address] [id number] [place] [address]- 8217 08 Sep, 2013 [facility] [place] [facility] [address] [id number] [place] [address]- 1433 08 Sep, 2013 [facility] [place] [facility] [address] [id number] [place] [address]- 3856 04 Sep, 2013 [facility] [place] [facility] [address] [id number] [place] [address]- 0664 04 Sep, 2013 [facility] [place] [facility] [address] [id number], [place] [address]- 9840 03 Sep, 2013 [facility] [place] [facility] [address] [id number] [place] [address] 2549 02 Sep, 2013 [facility] [place] [facility] [address] [id number] [place] [address]- 0928 02 Sep, 2013 [facility] [place] [facility] [address] [id number], [place] [address] 1589 27 Oct, 2013 [facility] [place] [facility] [address] [id number], [place] [address]- 8524 Oct, [facility] [place] [facility] [address] [id number] [place] [address]- 5707 Oct, [facility] [place] [facility] [address] [id number] [place] [address]- 3355 Oct, [facility] [place] [facility] [address] [id number] [place] [address]- 9218 Oct, [facility] [place] [facility] [address] [id number] [place] [address]- 9285 Oct, [facility] [place] [facility] [address] [id number] [place] [address]- 8088 Oct, [facility] [place] [facility] [address] [id number] [place] [address]- 7826 Oct, [facility] [place] [facility] [address] [id number] [place] [address]- 6263 Oct, [facility] [place] [facility] [address] [id number] [place] [address]- 6160 Oct, [facility] [place] [facility] [address] [id number] [place] [address]- 5906 Oct, [facility] [place] [facility] [address] [id number] [place] [address]- 1936 Oct, [facility] [place] [facility] [address] [id number] [place] [address]- 2654 Oct, [facility] [place] [facility] [address] [id number] [place] [address]- 1859 Oct, [facility] [place] [facility] [address] [id number] [place] [address]- 3197 Sep, [facility] [place] [facility] [address] [id number] [place] [address]- 1291 Sep, [facility] [place] [facility] [address] [id number] [place] [address]- 4317 Sep, [facility] [place] [facility] [address] [id number] [place] [address]- 7528 14 Sep, 2013 [facility] [place] [facility] [address] [id number] [place] [address]- 9032 Sep, [facility] [place] [facility] [address] [id number] [place] [address]- 8352 Sep, [facility] [place] [facility] [address] [id number] [place] [address]- 6230 Sep, [facility] [place] [facility] [address] [id number] [place] [address]- 1096 Sep, [facility] [place] [facility] [address] [id number] [place] [address]- 4074 Aug, [facility] [place] [facility] [address] [id number] [place] [address]- 2330 Aug, [facility] [place] [facility] [address] [id number] [place] [address]- 4499 Aug, [facility] [place] [facility] [address] [id number] [place] [address]- 9471 Aug, [facility] [place] [facility] [address] [id number] [place] [address]- 9118 Aug, [facility] [place] [facility] [address] [id number] [place] [address]- 8077 Aug, [facility] [place] [facility] [address] [id number] [place] [address]- 5376 Aug, [facility] [place] [facility] [address] [id number] [place] [address]- 1207 Aug, [facility] [place] [facility] [address] [id number] [place] [address]- 4630 July, [facility] [place] [facility] [address] [id number] [place] [address]- 4707 July, [facility] [place] [facility] [address] [id number] [place] [address]- 5277 July, [facility] [place] [facility] [address] [id number] [place] [address]- 3076 July, [facility] [place] [facility] [address] [id number] [place] [address]- 3975 July, [facility] [place] [facility] [address] [id number] [place] [address]- 9864 July, [facility] [place] [facility] [address] [id number] [place] [address]- 3086 July, [facility] [place] [facility] [address] [id number] [place] [address]- 8403 July, [facility] [place] [facility] [address] [id number] [place] [address]- 3151 Jun, [facility] [place] [facility] [address] [id number] [place] [address]- 7343 Jun, [facility] [place] [facility] [address] [id number] [place] [address]- 6245 Jun, [facility] [place] [facility] [address] [id number] [place] [address]- 1321 Jun, [facility] [place] [facility] [address] [id number] [place] [address]- 5413 Jun, [facility] [place] [facility] [address] [id number] [place] [address]- 2599 Jun, [facility] [place] [facility] [address] [id number], [place] [address]- 3107 Jun, [facility] [place] [facility] [address] [id number] [place] [address]- 6255 Jun, [facility] [place] [facility] [address] [id number] [place] [address]- 2106 Jun, [facility] [place] [facility] [address] [id number] [place] [address]- 3041 Jun, [facility] [place] [facility] [address] [id number] [place] [address]- 0047 Jun, [facility] [place] [facility] [address] [id number] [place] [address]- 6341 Jun, [facility] [place] [facility] [address] [id number] [place] [address]- 3406 May, [facility] [place] [facility] [address] [id number] [place] [address]- 0883 May, [facility] [place] [facility] [address] [id number] [place] [address]- 1116 May, [facility] [place] [facility] [address] [id number] [place] [address]- 3405 May, [facility] [place] [facility] [address] [id number] [place] [address]- 6071 May, [facility] [place] [facility] [address] [id number] [place] [address]- 0521 May, [facility] [place] [facility] [address] [id number] [place] [address]- 6345 May, [facility] [place] [facility] [address] [id number] [place] [address]- 4110 May, [facility] [place] [facility] [address] [id number] [place] [address]- 3222 May, [facility] [place] [facility] [address] [id number] [place] [address]- 7037 May, [facility] [place] [facility] [address] [id number] [place] [address]- 8479 May, [facility] [place] [facility] [address] [id number] [place] [address]- 8020 May, [facility] [place] [facility] [address] [id number] [place] [address]- 0910 10 May, 2013 [facility] [place] [facility] [address] [id number] [place] [address]- 2727 May, [facility] [place] [facility] [address] [id number] [place] [address]- 7841 Apr, [facility] [place] [facility] [address] [id number] [place] [address]- 3376 Apr, [facility] [place] [facility] [address] [id number] [place] [address]- 1536 Apr, [facility] [place] [facility] [address] [id number] [place] [address]- 6026 Apr, [facility] [place] [facility] [address] [id number] [place] [address]- 8989 Apr, [facility] [place] [facility] [address] [id number] [place] [address]- 2516 Apr, [facility] [place] [facility] [address] [id number] [place] [address]- 9328 Mar, [facility] [place] [facility] [address] [id number] [place] [address]- 2109 Mar, [facility] [place] [facility] [address] [id number] [place] [address]- 7238 Mar, [facility] [place] [facility] [address] [id number] [place] [address]- 8147 Mar, [facility] [place] [facility] [address] [id number] [place] [address]- 4730 Mar, [facility] [place] [facility] [address] [id number] [place] [address]- 8968 Mar, [facility] [place] [facility] [address] [id number] [place] [address]- 0523 Mar, [facility] [place] [facility] [address] [id number] [place] [address]- 2077 Mar, [facility] [place] [facility] [address] [id number] [place] [address]- 2695 Mar, [facility] [place] [facility] [address] [id number] [place] [address]- 0360 15 Mar, 2013 [facility] [address] [id number] [place] [address]- 0041 Mar, [facility] [address] [id number] [place] [address]- 8188 Mar, [facility] [address] [id number] [place] [address]- 9682 Mar, [facility] [place] [facility] [address] [id number] [place] [address]- 1523 Mar, [facility] [address] [id number] [place] [address]- 5780 Feb, [facility] [address] [id number] [place] [address]- 6831 Feb, [facility] [address] [id number] [place] [address]- 0588 Feb, [facility] [address] [id number] [place] [address]- 7334 Feb, [facility] [address] [id number] [place] [address]- 3308 Feb, [facility] [address] [id number] [place] [address]- 5012 Feb, [facility] [address] [id number] [place] [address]- 5921 Feb, [facility] [place] [facility] [address] [id number] [place] [address]- 3633 Feb, [facility] [place] [facility] [address] [id number] [place] [address]- 0011 Feb, [facility] [place] [facility] [address] [id number] [place] [address]- 6941 Feb, [facility] [place] [facility] [address] [id number] [place] [address]- 5415 Feb, [facility] [place] [facility] [address] [id number] [place] [address]- 9403 09 Feb, 2012 [facility] [place] [facility] [address] [id number] [place] [address]- 0073 05 Feb, 2012 [facility] [place] [facility] [address] [id number] [place] [address]- 8301 05 Feb, 2012 [facility] [place] [facility] [address] [id number] [place] [address]- 9369 05 Feb, 2012 [facility] [place] [facility] [address] [id number] [place] [address]- 3265 05 Feb, 2012 [facility] [place] [facility] [address] [id number] [place] [address]- 8117 24 Dec, 2012 [facility] [place] [facility] [address] [id number] [place] [address]- 5883 24 Dec, 2012 [facility] [place] [facility] [address] [id number] [place] [address]- 5423 16 Dec, 2012 [facility] [place] [facility] [address] [id number] [place] [address]- 6596 16 Dec, 2012 [facility] [place] [facility] [address] [id number] [place] [address]- 3441 16 Dec, 2012 [facility] [place] [facility] [address] [id number] [place] [address]- 4079 16 Dec, 2012 [facility] [place] [facility] [address] [id number] [place] [address]- 2652 14 Dec, 2012 [facility] [place] [facility] [address] [id number] [place] [address]- 4629 14 Dec, 2012 [facility] [place] [facility] [address] [id number] [place] [address]- 1950 10 Dec, 2012 [facility] [place] [facility] [address] [id number] [place] 4656 10 Dec, 2012 [facility] [place] [facility] [address] [id number] [place] [address]- 5506 Dec, [facility] [place] [facility] [address] [id number] [place] [address]- 9868 10 Dec, 2012 [facility] [place] [facility] [address] [id number] [place] [address]- 7056 Dec, [facility] [place] [facility] [address] [id number] [place] [address]- 1243 25 Nov, 2012 [facility] [place] [facility] [address] [id number] [place] [address]- 7989 20 Nov, 2012 [facility] [place] [facility] [address] [id number] [place] [address]- 6376 18 Nov, 2012 [facility] [place] [facility] [address] [id number] [place] [address]- 5397 16 Nov, 2012 [facility] [place] [facility] [address] [id number] [place] [address]- 5208 12 Nov, 2012 [facility] [place] [facility] [address] [id number] [place] [address]- 1990 11 Nov, 2012 [facility] [place] [facility] [address] [id number] [place] [address]- 0986 05 Nov, 2012 [facility] [place] [facility] [address] [id number] [place] [address] 15 Oct, 2012 [facility] [place] [facility] [address] [id number], [place] [address] Oct, [facility] [place] [facility] [address] [id number], [place] [address] Sep, [facility] [place] [facility] [address] [id number] [place] [address] Sep, [facility] [place] [facility] [address] [id number], [place] [address] Sep, [facility] [place] [facility] [address] [id number] [place] [address] Sep, [facility] [place] [facility] [address] [id number] [place] [address] 15 Sep, 2012 [facility] [address] [id number] [place] [address] 09 Sep, 2012 [facility] [place] [facility] [address] [id number] [place] [address] 08 Sep, 2012 [facility] [address] [id number] [place] [address] Aug, [facility] [place] [facility] [address] [id number] [place] [address] 18 Aug, 2012 [facility] [address] [id number] [place] [address] 16 Aug, 2012 [facility] [address] [id number] [place] [address] Aug, [facility] [address] [id number] [place] [address]- [address] Aug, [facility] [address] [id number] [place] [address] Aug, [facility] [place] [facility] [address] [id number] [place] [address] Aug, [facility] [address] [id number] [place] [address]- [address] Aug, [facility] [place] [facility] [address] [id number] [place] [address]- [address] July, [facility] [place] [facility] [address] [id number] [place] [address] July, [facility] [place] [facility] [address] [id number] [place] [address]- [address] July, [facility] [place] [facility] [address] [id number] [place] [id number] July, [facility] [place] [facility] [address] [id number] [place] [address]- [address] July, [facility] [place] [facility] [address] [id number] [place] [address]- [address] Jun, [facility] [address] [id number] [place] [address] May, [facility] [place] [facility] [address] [id number] [place] [address]- [address] May, [facility] [address] [id number] [place] [address]- [address] May, [facility] [address] [id number] [place] [address] Apr, [facility] [address] [id number] [place] [address] Apr, [facility] [address] [id number] [place] [address] Apr, [facility] [address] [id number] [place] [address] Mar, [facility] [address] [id number] [place] [address] 36[address] Mar, [facility] [address] [id number] [place] [address] Mar, [facility] [address] [id number] [place] [address] Mar, [facility] [address] [id number] [place] [address] Mar, [facility] [place] [facility] [address] [id number] [place] [address]- 6767 Mar, [facility] [place] [facility] [address] [id number] [place] [address]- [address] Mar, [facility] [place] [facility] [address] [id number] [place] [address]- [address] Feb, [facility] [place] [facility] [address] [id number], [place] [address] Feb, [facility] [place] [facility] [address] [id number] [place] [address]47 Feb, [facility] [place] [facility] [address] [id number] [place] [address] Feb, [facility] [place] [facility] [address] [id number] [place] [address]- [address]35 Feb, [facility] [place] [facility] [address] [id number] [place] [address] Feb, [facility] [place] [facility] [address] [id number] [place] [address] Feb, [facility] [place] [facility] [address] [id number] [place] [address]- [address] Feb, [facility] [place] [facility] [address] [id number] [place] [address]- [address] Jan, [facility] [place] [facility] [address] [id number] [place] [address]- 7900 Jan, [facility] [place] [facility] [address] [id number] [place] [address]- 30[address] Jan, [facility] [place] [facility] [address] [id number] [place] [address] 96[address] Jan, [facility] [place] [facility] [address] [id number], [place] [address] Jan, [facility] [place] [facility] [address] [id number], [place] [address] Jan, [facility] [place] [facility] [address] [id number], [place] [address]- [address] Jan, [facility] [place] [facility] [address] [id number] [place] [address]- 9438 Jan, [facility] [place] [facility] [address] [facility] [id number] [place] [address] Jan, [facility] [place] [facility] [address] [id number] [place] [address]- 7568 Jan, [facility] [place] [facility] [address] [id number] [place] [address]- 1066 Jan, [facility] [place] [facility] [address] [id number] [place] [address]- 9651 Jan, [facility] [place] [facility] [address] [id number] [place] [address]- 8283 Jan, [facility] [place] [facility] [address] [id number] [place] [address]- 38[address] Jan, [facility] [place] [facility] [address] [id number] [place] [address] Jan, [facility] [place] [facility] [address] [id number] [place] [address]- 8090 Jan, [facility] [place] [facility] [address] [id number] [place] [address]- [address] Dec, [facility] [place] [facility] [address] [id number] [place] [address]- 1207 Dec, [facility] [place] [facility] [address] [id number] [place] [address]- 1248 Dec, [facility] [place] [facility] [address] [facility] [id number] [place] [address]- 5776 Dec, [facility] [place] [facility] [address] [id number] [place] [address]- 8601 Dec, [facility] [place] [facility] [address] [id number] [place] [address]- 7979 Dec, [facility] [place] [facility] [address] [id number] [place] [address] Dec, [facility] [place] [facility] [address] [id number] [place] [address] Dec, [facility] [place] [facility] [address] [id number] [place] [address]- 3035 Dec, [facility] [place] [facility] [address] [id number] [place] [address]- 5624 05 Dec, 2011 [facility] [place] [facility] [address] [id number] [place] [address]- 0[address] 18 Nov, 2011 [facility] [place] [facility] [address] [id number] [place] [address]- 5336 13 Nov, 2011 [facility] [place] [facility] [address] [id number] [place] [address]- 6420 24 Oct, 2011 [facility] [place] [facility] [address] [id number] [place] [address]- 0366 Oct, [facility] [place] [facility] [address] [id number] [place] [address]- 6229 17 Oct, 2011 [facility] [place] [facility] [address] [id number] [place] [address]- 3846 Oct, [facility] [place] [facility] [address] [id number] [place] [address] Oct, [facility] [place] [facility] [address] [id number] [place] [address] Oct, [facility] [place] [facility] [address] [id number] [place] [address] Oct, [facility] [place] [facility] [address] [id number] [place] [address] Sep, [facility] [place] [facility] [address] [id number], [place] [address] Aug, [facility] [place] [facility] [address] [id number] [place] [address] Aug, [facility] [place] [facility] [address] [id number] [place] [address] Aug, [facility] [place] [facility] [address] [id number] [place] [address] Aug, [facility] [place] [facility] [address] [id number] [place] [address] Aug, [facility] [address] [id number] [place] [address] July, [facility] [place] [facility] [address] [id number] [place] [address] July, [facility] [place] [facility] [address] [id number] [place] [address] July, [facility] [place] [facility] [address] [id number] [place] [address] Jun, [facility] [place] [facility] [address] [id number] [place] [address] Jun, [facility] [place] [facility] [address] [id number] [place] [address] Jun, [facility] [address] [id number] [place] [address] Jun, [facility] [place] [facility] [address] [id number] [place] [address] May, [facility] [place] [facility] [address] [id number] [place] [address] 30 May, 2011 [facility] [place] [facility] [address] [id number] [place] [address] May, [facility] [place] [facility] [address] [id number] [place] [address] May, [facility] [place] [facility] [address] [id number] [place] [address] May, [facility] [place] [facility] [address] [id number] [place] [address] May, [facility] [place] [facility] [address] [id number] [place] [address] May, [facility] [place] [facility] [address] [id number] [place] [address] May, [facility] [place] [facility] [address] [id number] [place] [address]- [address] May, [facility] [place] [facility] [address] [id number] [place] [address]- [address] May, [facility] [place] [facility] [address] [id number] [place] [address] May, [facility] [place] [facility] [address] [id number] [place] [address] May, [facility] [place] [facility] [address] [id number] [place] [address] Mar, [facility] [place] [facility] [address] [id number] [place] [address] Mar, [facility] [place] [facility] [address] [id number] [place] [address] Feb, [facility] [place] [facility] [address] [id number] [place] [address] Feb, [facility] [place] [facility] [address] [id number] [place] [address] Feb, [facility] [place] [facility] [address] [id number] [place] [address] 15 Feb, 2011 [facility] [place] [facility] [address] [id number] [place] [address] Feb, [facility] [place] [facility] [address] [id number] [place] [address] Feb, [facility] [place] [facility] [address] [id number] [place] [address] Feb, [facility] [place] [facility] [address] [id number] [place] [address] Jan, [facility] [place] [facility] [address] [id number] [place] [address] Jan, [facility] [place] [facility] [address] [id number] [place] [address] Jan, [facility] [place] [facility] [address] [id number] [place] [address] Jan, [facility] [place] [facility] [address] [id number] [place] [address] Jan, [facility] [place] [facility] [address] [id number] [place] [address] Jan, [facility] [place] [facility] [address] [id number] [place] [address] Dec, [facility] [place] [facility] [address] [id number] [place] [address] Dec, [facility] [place] [facility] [address] [id number] [place] [address] Dec, [facility] [place] [facility] [address] [id number] [place] [address] July, [facility] [place] [facility] [address] [id number] [place] [address] July, [facility] [place] [facility] [address] [id number] [place] [address] Feb, [facility] [place] [facility] [address] [id number] [place] [address] Jan, [facility] [place] [facility] [address] [id number], [place] [address] Dec, [facility] [place] [facility] [address] [id number], [place] [address] Dec, [facility] [place] [facility] [address] [id number] [place] [address] Sep, [facility] [place] [facility] [address] [id number] [place] [address]- [address]99 Aug, [facility] [place] [facility] [address] [id number] [place] [address]- [address] Jun, [facility] [place] [facility] [id number], [place] [address] Jun, [facility] [id number], [place] [address] Jan, [facility] [id number] [address] [address] Jan, [facility] [id number] [address] Jan, [facility] [id number], [place] [address] Jan, [facility] [id number] [place] [address] Dec, [facility] [id number], [place] [address] Dec, [facility] [id number] [place] [address] Dec, [facility] [id number], [place] [address] Nov, [facility] [id number], [place] [address] July, [facility] [id number], [place] [address] May, [facility] [id number], [place] [address] Apr, [facility] [id number], [place] [address] Feb, [facility] [id number] [address] Dec, IMMUNIZATIONS No Known Immunizations SOCIAL HISTORY Never Assessed REASON FOR VISIT intake PLAN OF CARE Activity Details Follow Up 4 Weeks Reason: VITAL SIGNS Height 64 in 2016-10-14 Weight 198 lbs 2016-10-14 Heart Rate 88 bpm 2016-10-14 BMI 33.98 kg/m2 2016-10-14 Blood pressure systolic 142 mmHg 2016-10-14 Blood pressure diastolic 74 mmHg 2016-10-14 MEDICATIONS Medication Instructions Dosage Frequency Start Date End Date Duration Status Test strips Contour test strips 2 times a day test blood sugar 12h Aug, Active Aspirin Adult Low Strength 81 MG Orally Once a day 1 tablet 24h Active NovoLog Mix 70/30 Flexpen (70-30) 100 UNIT/ML Subcutaneous 2 times a day Inject 110 12h Active Farxiga 5 MG Orally Once a day 1 tablet 24h Apr, Active Celexa 40 MG Orally Once a day 1 tablet 24h May, 30 days Active Ativan 0.5 MG Orally Once a day, no early refills 1 tablet as needed Sep, 30 days Active Amaryl 2 MG Orally Once a day in AM 1 tablet with breakfast or the first main meal of the day Sep, 30 day(s) Active Actos 45 MG Orally Once a day #60 samples 1 tablet Apr, Active Lamictal 200 MG Orally Once a day 1 tablet 24h May, 30 days Active Victoza 18 MG/3ML Subcutaneous Once a day inject 0.3 ml 24h 90 days Active Toprol XL 25 mg take 1 tablet by Oral route 1 time per day take at hs May, Active RESULTS No Results PROCEDURES No [...]
--- OUTSIDE RECORDS SUMMARY | 2017-09-01 18:43 | XMS REPORT ---
Author Author BEVERLY TAO Organization [facility] Address [address] [place] [address] Care Team Providers Care Housecleaner Floor Name Role Phone BEVERLY TAO Unavailable PROBLEMS Type Condition ICD9-CM Code ZXQ03-FU Code Onset Dates Condition Status SNOMED Code Problem Diabetes E11.9 Active 481797778 Problem Lumbar radiculopathy M54.16 Active 685718094 Problem Irritable bowel syndrome with diarrhea K58.0 Active 202590646 Problem New daily persistent headache G44.52 Active 962047002 Problem Acute bilateral low back pain with right-sided sciatica M54.41 Active 938181111 Problem 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 Active 540892306 Problem Bipolar 1 disorder F31.9 Active 678913497 Problem Hyperlipidemia, unspecified E78.5 Active 20678957 Problem Type 2 diabetes mellitus with complication E11.8 Active 867940472 Problem Post laminectomy syndrome M96.1 Active 84755713 Problem Eye exam normal Z01.00 Active 706884271 Problem Bipolar disorder, in partial remission, most recent episode manic F31.73 Active 43564909 Problem Extreme poverty Z59.5 Active 78797776 Problem Obesity, unspecified 278.00 Active 430224746 Problem 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 Active 08691075 Problem Hyperlipidemia 272.4 Active 35058819 Problem Non compliance with medical treatment Z91.19 Active [id number] ALLERGIES No Information ENCOUNTERS Encounter Location Date Diagnosis [facility] [address], [place] [address] Aug, [facility] [address], [place] [address] July, [facility] [id number] [address] Jun, [facility] [id number] [place] [address] 34417- 6959 Jun, Bipolar 1 disorder F31.9 ; 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 and Extreme poverty Z59.5 [place] [id number] [place] [address] 38236- 9253 May, Urinary tract infection without hematuria, site unspecified N39.0 [place] [facility] [id number] [place] [address] 40382- 4656 May, Bipolar 1 disorder F31.9 ; 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 and Extreme poverty Z59.5 [place] [id number] [place] [address] 06836- 2588 Apr, Diabetes E11.9 and Breast cancer screening Z12.31 [place] [id number] [place] [address] 45842- 3018 Apr, Bipolar 1 disorder F31.9 and 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 [place] [id number] [place] [address] 44841- 1422 Mar, Bipolar 1 disorder F31.9 ; 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 and Extreme poverty Z59.5 [place] [id number] [place] [address] 38784- 3382 Mar, New daily persistent headache G44.52 ; Leg pain 729.5 and History of carpal tunnel release Z98.890 [place] [id number] [place] [address] 86545- 1726 Mar, Hyperlipidemia, unspecified E78.5 [place] [id number] [place] [address] 18949- 4160 Mar, Bipolar 1 disorder F31.9 ; 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 and Extreme poverty Z59.5 [place] [id number] [place] [address] 81726- 2987 Feb, Bipolar 1 disorder F31.9 ; 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 and Extreme poverty Z59.5 [place] [address] [place] [address] 97728- 9453 Feb, Diabetes E11.9 [place] [id number] [place] [address] 72525- 4822 Feb, Viral syndrome B34.9 [place] [id number] [place] [address] 38128- 8563 Jan, Other viral agents as the cause of diseases classified elsewhere B97.89 and Acute upper respiratory infection, unspecified J06.9 [place] [id number] [place] [address] 52270- 4120 Jan, Bipolar 1 disorder F31.9 and 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 [place] [id number] [place] [address] 64856- 2891 Jan, Bipolar 1 disorder F31.9 ; 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 and Extreme poverty Z59.5 [place] [id number] [place] [address] 78650- 8939 Dec, Diabetes E11.9 [place] [id number] [place] [address] 49919- 7728 Dec, Diabetes E11.9 and Encounter for immunization Z23 [place] [id number] [place] [address] 57560- 3562 Dec, Bipolar 1 disorder F31.9 ; 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 and Extreme poverty Z59.5 [place] [address] [place] [address] 60222- 6036 Dec, Back pain M54.9 [place] [id number] [place] [address] 29128- 1522 Nov, [place] [facility] [id number] [place] [address] 36814- 5937 Nov, Bipolar 1 disorder F31.9 ; 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 and Extreme poverty Z59.5 [place] [address] [address] Nov, Bipolar 1 disorder F31.9 ; 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 and Extreme poverty Z59.5 [place] [address] [place] [address] 25571- 9475 Oct, 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 and Bipolar 1 disorder F31.9 [place] [id number] [place] [address] 03366- 9365 Oct, Bipolar 1 disorder F31.9 ; 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 and Extreme poverty Z59.5 [place] [id number] [place] [address] 17097- 1375 Oct, Back pain M54.9 [place] [address] [place] [address] 40623- 9986 Oct, 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 and Type 2 diabetes mellitus with complication E11.8 [place] [id number] [place] [address] 15113- 7862 Sep, Bipolar 1 disorder F31.9 ; 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 and Extreme poverty Z59.5 [place] [address] [place] [address] 59280- 3612 Sep, 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5 [place] [address], [place] [address]- 5945 13 Aug, 2016 [facility] [address], [place] [address] Aug, [facility] [address], [place] [address]- 6[address] Aug, [facility] [id number] [place] [address] 04574- 4559 July, [facility] [address] [place] [address] 46610- 5941 July, Acute bilateral low back pain with right-sided sciatica M54.41 [place] [address] [place] [address] 07337- 6646 July, Bipolar 1 disorder F31.9 ; 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 and Extreme poverty Z59.5 [place] [address] [place] [address] 81023- 4093 July, Back pain M54.9 and Diabetes E11.9 [place] [id number] [place] [address] 57419- 4743 Jun, Bipolar 1 disorder F31.9 ; 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 and Extreme poverty Z59.5 [place] [address], [place] [address] 3416 Jun, Bipolar 1 disorder F31.9 ; 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 and Extreme poverty Z59.5 [place] [address], [place] [address]- 0786 May, Visit for pelvic exam Z01.419 ; Acute vaginitis N76.0 and Diabetes E11.9 [facility] [address], [place] [address]- 8399 May, Bipolar 1 disorder F31.9 ; 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 and Extreme poverty Z59.5 [place] [address] [place] [address] [address]646- 9602 08 May, 2016 [place] [address] 21143- 2554 May, [place] [address] 238481- 0734 May, Bipolar 1 disorder F31.9 ; 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 and Extreme poverty Z59.5 [place] [address] 47989- 9899 May, Hyperlipidemia, unspecified E78.5 [place] [address] 94323- 2075 13 Apr, 2016 Breast cancer screening Z12.39 [place] [address] 68101- 9237 Mar, [place] [address] 52252- 9322 Mar, Bipolar disorder, current episode mixed, unspecified F31.60 [place] [address] 55052- 7923 Mar, Bipolar 1 disorder F31.9 ; 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 and Extreme poverty Z59.5 [place] [address] 67043- 0317 Feb, Acute nasopharyngitis J00 [place] [address] 13354- 7655 27 Feb, 2016 Dental examination Z01.20 [place] [address] 52583- 0874 21 Feb, 2016 Dental cavities K02.9 and Chronic periodontitis, unspecified K05.30 [place] [address] 92539- 9625 13 Feb, 2016 Low back pain M54.5 and Extreme poverty Z59.5 [place] [address] [place] [address]- 1487 08 Feb, 2016 [place] [id number] [place] [address] 04826- 4313 05 Feb, 2016 Routine gynecological examination V72.31 ; Breast cancer screening Z12.39 and Herpes simplex type 1 infection B00.9 [place] [id number] [place] [address] 52095- 6955 02 Feb, 2016 Diabetes E11.9 [place] [id number] [place] [address] 01 Feb, 2016 Encounter for dental examination and cleaning without abnormal findings Z01.20 [place] [id number] [place] [address] 44377- 8003 22 Jan, 2016 Hyperlipidemia, unspecified E78.5 [place] [id number] [place] [address] 34437- 0956 22 Jan, 2016 Bipolar 1 disorder F31.9 ; 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 and Extreme poverty Z59.5 [place] [id number] [place] [address] 72348- 3658 18 Jan, 2016 Diabetes E11.9 [place] [id number] [place] [address] 57539- 5437 17 Jan, 2016 Diabetes E11.9 [place] [id number] [place] [address] 52788- 8049 14 Dec, 2015 Bipolar 1 disorder F31.9 ; 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 and Extreme poverty Z59.5 [place] [id number] [place] [address] 67206- 7474 13 Dec, 2015 Bipolar disorder, current episode mixed, unspecified F31.60 and 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 [place] [id number] [place] [address] 82266- 2261 16 Nov, 2015 Bipolar 1 disorder F31.9 ; 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 ; Extreme poverty Z59.5 and Non compliance with medical treatment Z91.19 [place] [id number] [place] [address] 86977- 5130 Oct, [place] [id number] [place] [address] 79713- 3060 Oct, Dental caries K02.9 [place] [id number] [place] [address] 48415- 6251 Oct, Low back pain M54.5 and Other chronic pain G89.29 [place] [id number] [place] [address] 32889- 9444 Oct, Bipolar 1 disorder F31.9 ; 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 ; Extreme poverty Z59.5 and Non compliance with medical treatment Z91.19 [place] [id number] [place] [address] 15269- 6018 Oct, [place] [id number] [place] [address] 62755- 5430 Oct, [place] [id number] [place] [address] 34106- 1005 Oct, Dental examination Z01.20 [place] [id number] [place] [address] 55342- 0071 Oct, Bipolar 1 disorder F31.9 ; 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 ; Extreme poverty Z59.5 and Non compliance with medical treatment Z91.19 [place] [id number] [place] [address] 51252- 4522 Oct, [place] [id number] [place] [address] 18611- 5006 Sep, Type 2 diabetes mellitus with complication E11.8 [place] [id number] [place] [address] 25421- 3809 Sep, Bipolar disorder, current episode mixed, unspecified F31.60 [place] [id number] [place] [address] 23671- 3255 Sep, Bipolar disorder, current episode mixed, unspecified F31.60 [place] [address], [place] [address]- 9739 Sep, Bipolar disorder, in partial remission, most recent episode manic F31.73 ; 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 ; Extreme poverty Z59.5 and Non compliance with medical treatment Z91.19 [place] [address] [place] [address] 41451- 1675 Aug, Bipolar disorder, in partial remission, most recent episode manic F31.73 ; 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 ; Extreme poverty Z59.5 and Non compliance with medical treatment Z91.19 [place] [id number] [place] [address] 46944- 8036 Aug, Bipolar disorder, in partial remission, most recent episode manic F31.73 ; 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 ; Extreme poverty Z59.5 and Non compliance with medical treatment Z91.19 [place] [id number] [place] [address] 85896- 2798 Aug, [place] [address] [place] [address] 02114- 8006 July, Bipolar disorder, in partial remission, most recent episode manic F31.73 ; 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 ; Extreme poverty Z59.5 and Non compliance with medical treatment Z91.19 [place] [address] [place] [address] 75906- 3166 July, Bipolar disorder, current episode mixed, unspecified F31.60 [place] [address] [place] [address] 78345- 2749 July, Bipolar disorder, in partial remission, most recent episode manic F31.73 ; 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 ; Extreme poverty Z59.5 and Non compliance with medical treatment Z91.19 [place] [address] [place] [address] 99665- 2142 July, 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 and Chronic pain G89.29 [place] [address], [place] [address]- 9666 Jun, 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 and Bipolar 1 disorder F31.9 [place] [id number] [place] [address] 43372- 6244 Jun, [place] [id number] [place] [address] 76808- 0825 Jun, [place] [id number] [place] [address] 49230- 3013 Jun, [place] [id number] [place] [address] 55331- 1242 Jun, Bipolar disorder, in partial remission, most recent episode manic F31.73 ; 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 and Non compliance with medical treatment Z91.19 [place] [id number] [place] [address] 37799- 1404 May, Bipolar disorder, in partial remission, most recent episode manic F31.73 ; 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 and Non compliance with medical treatment Z91.19 [place] [id number] [place] [address] 33796- 9426 May, Bipolar disorder, in partial remission, most recent episode manic F31.73 [place] [id number] [place] [address] 52085- 5180 May, Diabetes E11.9 and Chronic pain G89.29 [place] [address] [place] [address] 41697- 3120 May, [place] [id number] [place] [address] 30052- 7194 May, Bipolar disorder, in partial remission, most recent episode manic F31.73 ; Non compliance with medical treatment Z91.19 and 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 [place] [address] [place] [address] 11265- 7045 May, Type 2 diabetes mellitus with complication E11.8 and Back pain M54.9 [place] [address] [place] [address] 28117- 0241 May, Bipolar disorder, in partial remission, most recent episode manic F31.73 and 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 [place] [id number] [place] [address] 17869- 3469 Apr, [place] [id number] [place] [address] 22513- 5150 Apr, [place] [id number] [place] [address] 10812- 4608 Apr, [place] [id number] [place] [address] 94019- 6503 Apr, Diabetes E11.9 ; Irritable bowel syndrome with diarrhea K58.0 and Lumbar radiculopathy M54.16 [place] [id number] [place] [address] 93710- 9341 Apr, Breast screening Z12.39 [place] [id number] [place] [address] 83104- 5254 Apr, Bipolar disorder, in partial remission, most recent episode manic F31.73 ; Non compliance with medical treatment Z91.19 and 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 [place] [address] [place] [address] 07990- 2299 Mar, Edema, unspecified type R60.9 and Type 2 diabetes mellitus with complication E11.8 [place] [address] [place] [address] 11401- 6286 Mar, Bipolar disorder, in partial remission, most recent episode manic F31.73 ; Non compliance with medical treatment Z91.19 ; 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 and Extreme poverty Z59.5 [place] [address] [place] [address] 51795- 7424 Mar, Bipolar disorder, current episode mixed, unspecified F31.60 ; 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 ; Extreme poverty Z59.5 and Generalized anxiety disorder F41.1 [place] [id number] [place] [address] 04580- 0332 Mar, Bipolar disorder, in partial remission, most recent episode manic F31.73 ; 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 and Extreme poverty Z59.5 [place] [id number] [place] [address] 96786- 2523 Feb, Bipolar disorder, in partial remission, most recent episode manic F31.73 ; 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 and Extreme poverty Z59.5 [place] [address] 54272- 7002 Feb, Bipolar disorder, in partial remission, most recent episode manic F31.73 ; 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 and Extreme poverty Z59.5 [place] [address] 61797- 3488 Feb, [place] [id number] [place] [address] 82831- 3807 Jan, Type 2 diabetes mellitus with complication E11.8 and Petechiae R23.3 [place] [id number] [place] [address]- [address]22 Jan, Type 2 diabetes mellitus with complication E11.8 ; Edema, unspecified R60.9 ; Petechiae R23.3 and Diabetes E11.9 [place] [address] [place] [address] 18807- 7182 Jan, Bipolar disorder, in partial remission, most recent episode manic F31.73 ; 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 and Extreme poverty Z59.5 [place] [id number] [place] [address]- 1730 Jan, Bipolar disorder, in partial remission, most recent episode manic F31.73 ; 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 and Extreme poverty Z59.5 [place] [id number] [place] [address]- 2546 Dec, Bipolar disorder, in partial remission, most recent episode manic F31.73 [place] [id number] [place] [address] 59338- 5147 Dec, Edema, due to unspecified malnutrition type, unspecified edema R60.9 and Essential hypertension I10 [place] [id number] [place] [address] 85196- 7544 Dec, Bipolar disorder, in partial remission, most recent episode manic F31.73 [place] [id number] [place] [address] 70687- 7732 Nov, Bipolar I disorder, most recent episode (or current) mixed, unspecified 296.60 [place] [id number] [place] [address] 86180- 7124 Nov, Stress incontinence, female 625.6 ; Back pain 724.5 and Leg pain 729.5 [place] [id number] [place] [address] 15683- 8462 Nov, Generalized anxiety disorder 300.02 and Bipolar II disorder 296.89 [place] [address] 40136- 0379 Nov, Bipolar I disorder, most recent episode (or current) mixed, unspecified 296.60 [place] [id number] [place] [address] 89279- 4630 Oct, [facility] [id number] [place] [address] 30207- 2788 Oct, [place] [id number] [place] [address] 89357- 1190 Oct, [place] [id number] [place] [address] 84304- 6608 Oct, Bipolar I disorder, most recent episode (or current) mixed, unspecified 296.60 [facility] [id number] [place] [address] 87792- 8840 Sep, Diabetes 250.00 [facility] [address] [address]- 9965 Sep, Bipolar I disorder, most recent episode (or current) mixed, unspecified 296.60 [facility] [address] [address] 8462 Sep, [facility] [address] [address]- 4480 Sep, [facility] [address], [place] [address] Sep, Bipolar I disorder, most recent episode (or current) mixed, unspecified 296.60 [facility] [id number], [place] [address] Sep, Bipolar I disorder, most recent episode (or current) mixed, unspecified 296.60 [facility] [id number], [place] [address] Sep, [facility] [id number] [address] Sep, Anxiety 300.00 ; Diabetes 250.00 and Hyperlipidemia 272.4 [facility] [id number] [address] Aug, [facility] [id number] [address] Aug, [facility] [id number] [address] Aug, [facility] [id number] [address] Aug, Bipolar I disorder, most recent episode (or current) mixed, unspecified 296.60 [facility] [id number] [address] Aug, Generalized anxiety disorder 300.02 and Bipolar II disorder 296.89 [facility] [address] [address] July, Bipolar I disorder, most recent episode (or current) mixed, unspecified 296.60 [facility] [address] [address] July, Cough 786.2 [facility] [address], [place] [address] July, Bipolar I disorder, most recent episode (or current) mixed, unspecified 296.60 [facility] [address], [place] [address] 114[address] Jun, Diabetes 250.00 [facility] [id number] [place] [address] Jun, [facility] [address], [place] [address] Jun, [facility] [address], [place] [address] 69[address] May, [facility] [address], [place] [address] 79[address] May, [facility] [address], [place] [address] 39[address] May, [facility] [address], [place] [address] 5[address] May, [facility] [address], [place] [address] 5[address] May, [facility] [id number] [address] 64[address] May, [facility] [address] [address] Apr, [facility] [id number] [address] Apr, [facility] [address] [id number] [place] [address] 11 Apr, 2014 [facility] [place] [facility] [address] [id number] [place] [address]- 9816 Apr, 2014 [facility] [place] [facility] [address] [id number] [place] [address]- 2546 Apr, 2014 [facility] [place] [facility] [address] [id number] [place] [address]- 2706 Apr, 2014 [facility] [place] [facility] [address] [id number] [place] [address]- 2548 Apr, [facility] [place] [facility] [address] [id number] [place] [address]- 8196 Apr, [facility] [place] [facility] [address] [facility] [id number] [place] [address]- 6959 Mar, [facility] [place] [facility] [address] [id number] [place] [address]- 3685 Mar, [facility] [place] [facility] [address] [id number] [place] [address]- 5649 Mar, [facility] [place] [facility] [address] [id number] [place] [address]- 9373 Mar, [facility] [place] [facility] [address] [facility] [id number] [place] [address]- 0412 Mar, [facility] [place] [facility] [address] [facility] [id number] [place] [address]- 6374 Mar, [facility] [place] [facility] [address] [id number] [place] [address] 2547 Mar, [facility] [place] [facility] [address] [id number] [place] [address] 2546 Mar, [facility] [place] [facility] [address] [id number] [place] [address] 2546 Feb, [facility] [place] [facility] [address] [id number] [place] [address]- 9706 Feb, [facility] [place] [facility] [address] [id number] [place] [address]- 2155 Feb, [facility] [place] [facility] [address] [id number] [place] [address]- 8807 Feb, [facility] [place] [facility] [address] [id number] [place] [address]- 8329 Feb, [facility] [place] [facility] [address] [id number] [place] [address]- 6564 Feb, [facility] [place] [facility] [address] [id number] [place] [address]- 7184 Feb, [facility] [place] [facility] [address] [id number] [place] [address]- 6188 Feb, [facility] [place] [facility] [address] [id number] [place] [address]- 2967 Feb, [facility] [place] [facility] [address] [id number] [place] [address]- 4020 Feb, [facility] [place] [facility] [address] [id number] [place] [address]- 4675 Jan, [facility] [place] [facility] [address] [id number] [place] [address]- 1667 Jan, [facility] [place] [facility] [address] [id number] [place] [address]- 5573 Jan, [facility] [place] [facility] [address] [id number], [place] [address]- 5406 Jan, [facility] [place] [facility] [address] [id number] [place] [address]- 3437 Jan, [facility] [place] [facility] [address] [id number] [place] [address]- 5478 Jan, [facility] [place] [facility] [address] [id number] [place] [address]- 4886 Jan, [facility] [place] [facility] [address] [id number] [place] [address]- 0037 Jan, [facility] [place] [facility] [address] [id number] [place] [address]- 6768 Jan, [facility] [place] [facility] [address] [id number] [place] [address]- 7068 Jan, [facility] [place] [facility] [address] [id number] [place] [address]- 7262 Jan, [facility] [place] [facility] [address] [id number] [place] [address]- 8849 Jan, [facility] [place] [facility] [address] [id number] [place] [address]- 7858 Jan, [facility] [place] [facility] [address] [id number] [place] [address]- 2967 Jan, [facility] [place] [facility] [address] [id number] [place] [address]- 0110 Jan, [facility] [place] [facility] [address] [id number] [place] [address]- 4726 Dec, [facility] [place] [facility] [address] [id number] [place] [address]- 9031 Dec, [facility] [place] [facility] [address] [id number] [place] [address]- 3392 Dec, [facility] [place] [facility] [address] [id number] [place] [address]- 2812 Dec, [facility] [place] [facility] [address] [id number], [place] [address]- 9974 Dec, [facility] [place] [facility] [address] [id number] [place] [address]- 1532 Dec, [facility] [place] [facility] [address] [id number] [place] [address]- 6093 Dec, [facility] [place] [facility] [address] [id number], [place] [address]- 6203 Dec, [facility] [place] [facility] [address] [id number] [place] [address]- 2540 25 Sep, 2013 [facility] [place] [facility] [address] [id number] [place] [address] 2545 25 Sep, 2013 [facility] [place] [facility] [address] [id number] [place] [address]- 3809 10 Sep, 2013 [facility] [place] [facility] [address] [id number] [place] [address]- 5648 10 Sep, 2013 [facility] [place] [facility] [address] [id number] [place] [address]- 5209 08 Sep, 2013 [facility] [place] [facility] [address] [id number] [place] [address]- 2162 08 Sep, 2013 [facility] [place] [facility] [address] [id number] [place] [address]- 7858 08 Sep, 2013 [facility] [place] [facility] [address] [id number] [place] [address]- 6360 08 Sep, 2013 [facility] [place] [facility] [address] [id number] [place] [address]- 4034 08 Sep, 2013 [facility] [place] [facility] [address] [id number] [place] [address]- 6284 08 Sep, 2013 [facility] [place] [facility] [address] [id number] [place] [address]- 7040 04 Sep, 2013 [facility] [place] [facility] [address] [id number] [place] [address]- 2543 04 Sep, 2013 [facility] [place] [facility] [address] [id number] [place] [address]- 8358 03 Sep, 2013 [facility] [place] [facility] [address] [id number] [place] [address]- 2542 02 Sep, 2013 [facility] [place] [facility] [address] [id number] [place] [address]- 6918 02 Sep, 2013 [facility] [place] [facility] [address] [id number] [place] [address]- 0668 Oct, [facility] [place] [facility] [address] [id number] [place] [address]- 4286 Oct, [facility] [place] [facility] [address] [id number] [place] [address]- 7111 Oct, [facility] [place] [facility] [address] [id number] [place] [address]- 0233 Oct, [facility] [place] [facility] [address] [id number] [place] [address]- 2740 Oct, [facility] [place] [facility] [address] [id number] [place] [address]- 6969 Oct, [facility] [place] [facility] [address] [id number] [place] [address]- 2862 Oct, [facility] [place] [facility] [address] [id number] [place] [address]- 2573 Oct, [facility] [place] [facility] [address] [id number] [place] [address]- 6561 Oct, [facility] [place] [facility] [address] [id number] [place] [address]- 5568 Oct, [facility] [place] [facility] [address] [id number] [place] [address]- 7649 Oct, [facility] [place] [facility] [address] [id number] [place] [address]- 8487 Oct, [facility] [place] [facility] [address] [id number] [place] [address]- 5018 Oct, [facility] [place] [facility] [address] [id number] [place] [address]- 2327 Oct, [facility] [place] [facility] [address] [id number] [place] [address]- 6313 Sep, [facility] [place] [facility] [address] [id number] [place] [address]- 1123 Sep, [facility] [place] [facility] [address] [id number] [place] [address]- 0814 14 Sep, 2013 [facility] [place] [facility] [address] [id number] [place] [address]- 6161 Sep, [facility] [place] [facility] [address] [id number] [place] [address]- 6010 Sep, [facility] [place] [facility] [address] [id number] [place] [address]- 4693 Sep, [facility] [place] [facility] [address] [id number] [place] [address]- 3700 Sep, [facility] [place] [facility] [address] [id number] [place] [address]- 2920 Sep, [facility] [place] [facility] [address] [id number] [place] [address]- 8219 Aug, [facility] [place] [facility] [address] [id number] [place] [address]- 1077 Aug, [facility] [place] [facility] [address] [id number] [place] [address]- 3818 Aug, [facility] [place] [facility] [address] [id number] [place] [address]- 4380 Aug, [facility] [place] [facility] [address] [id number] [place] [address]- 3386 Aug, [facility] [place] [facility] [address] [id number] [place] [address]- 4990 Aug, [facility] [place] [facility] [address] [id number] [place] [address]- 3280 Aug, [facility] [place] [facility] [address] [id number] [place] [address]- 7307 Aug, [facility] [place] [facility] [address] [id number] [place] [address]- 8644 July, [facility] [place] [facility] [address] [id number] [place] [address]- 3488 July, [facility] [address] [id number] [place] [address]- 0551 July, [facility] [place] [facility] [address] [id number] [place] [address]- 7173 July, [facility] [place] [facility] [address] [id number] [place] [address]- 7199 July, [facility] [place] [facility] [address] [id number] [place] [address]- 3315 July, [facility] [place] [facility] [address] [id number] [place] [address]- 7738 July, [facility] [place] [facility] [address] [id number] [place] [address]- 6707 July, [facility] [place] [facility] [address] [id number] [place] [address]- 2658 Jun, [facility] [place] [facility] [address] [id number] [place] [address]- 1289 Jun, [facility] [place] [facility] [address] [id number] [place] [address]- 3593 Jun, [facility] [place] [facility] [address] [id number] [place] [address]- 4021 Jun, [facility] [place] [facility] [address] [id number] [place] [address]- 9928 Jun, [facility] [place] [facility] [address] [id number] [place] [address]- 6412 Jun, [facility] [place] [facility] [address] [id number] [place] [address]- 1085 Jun, [facility] [place] [facility] [address] [id number] [place] [address]- 9168 Jun, [facility] [place] [facility] [address] [id number] [place] [address]- 4659 Jun, [facility] [place] [facility] [address] [id number] [place] [address]- 3401 Jun, [facility] [place] [facility] [address] [id number] [place] [address]- 3225 Jun, [facility] [place] [facility] [address] [id number] [place] 7609 Jun, [facility] [place] [facility] [address] [id number] [place] [address]- 3759 May, [facility] [place] [facility] [address] [id number] [place] [address]- 3625 May, [facility] [place] [facility] [address] [id number] [place] [address]- 9241 May, [facility] [place] [facility] [address] [id number] [place] [address]- 2347 May, [facility] [place] [facility] [address] [id number] [place] [address]- 7780 May, [facility] [place] [facility] [address] [id number] [place] [address]- 9206 May, [facility] [place] [facility] [address] [id number] [place] [address]- 3357 May, [facility] [place] [facility] [address] [id number] [place] [address]- 8727 May, [facility] [place] [facility] [address] [id number] [place] [address]- 1754 May, [facility] [place] [facility] [address] [id number] [place] [address]- 4767 May, [facility] [place] [facility] [address] [id number] [place] [address]- 2771 May, [facility] [place] [facility] [address] [id number] [place] [address]- 4639 May, [facility] [place] [facility] [address] [id number] [place] [address]- 2178 10 May, 2013 [facility] [place] [facility] [address] [id number] [place] [address]- 1030 May, [facility] [place] [facility] [address] [id number] [place] [address]- 8540 Apr, [facility] [place] [facility] [address] [id number] [place] [address]- 3566 Apr, [facility] [place] [facility] [address] [id number] [place] [address]- 7522 Apr, [facility] [place] [facility] [address] [id number] [place] [address]- 6921 Apr, [facility] [place] [facility] [address] [id number] [place] [address]- 0637 Apr, [facility] [place] [facility] [address] [id number] [place] [address]- 3929 Apr, [facility] [place] [facility] [address] [id number] [place] [address]- 9021 Mar, [facility] [place] [facility] [address] [id number] [place] [address]- 1477 Mar, [facility] [place] [facility] [address] [id number] [place] [address]- 1626 Mar, [facility] [place] [facility] [address] [id number] [place] [address]- 6642 Mar, [facility] [place] [facility] [address] [id number] [place] [address]- 1490 Mar, [facility] [place] [facility] [address] [id number] [place] [address]- 1190 Mar, [facility] [place] [facility] [address] [id number] [place] [address]- 1239 Mar, [facility] [place] [facility] [address] [id number] [place] [address]- 8352 Mar, [facility] [place] [facility] [address] [id number] [place] [address]- 0664 Mar, [facility] [address] [id number] [place] [address]- 7859 Mar, [facility] [place] [facility] [address] [id number] [place] 8866 Mar, [facility] [place] [facility] [address] [id number] [place] [address]- 0185 Mar, [facility] [place] [facility] [address] [id number] [place] [address]- 7758 Mar, [facility] [place] [facility] [address] [id number] [place] [address]- 4033 Mar, [facility] [place] [facility] [address] [id number] [place] [address]- 2749 Feb, [facility] [place] [facility] [address] [id number] [place] [address]- 8462 Feb, [facility] [place] [facility] [address] [id number] [place] [address]- 0128 Feb, [facility] [place] [facility] [address] [id number] [place] [address]- 0960 Feb, [facility] [place] [facility] [address] [id number] [place] [address]- 5002 Feb, [facility] [place] [facility] [address] [id number] [place] [address]- 3066 Feb, [facility] [place] [facility] [address] [id number] [place] [address]- 3142 Feb, [facility] [place] [facility] [address] [id number] [place] [address]- 7510 Feb, [facility] [place] [facility] [address] [id number] [place] [address]- 9411 Feb, [facility] [place] [facility] [address] [id number] [place] [address]- 3592 Feb, [facility] [place] [facility] [address] [id number] [place] [address]- 2767 09 Feb, 2012 [facility] [address] [id number] [place] [address]- 1304 09 Feb, 2012 [facility] [place] [facility] [address] [id number] [place] [address]- 6448 05 Feb, 2012 [facility] [address] [id number] [place] [address]- 9362 05 Feb, 2012 [facility] [place] [facility] [address] [id number] [place] [address]- 5962 05 Feb, 2012 [facility] [address] [id number] [place] [address]- 0017 05 Feb, 2012 [facility] [place] [facility] [address] [id number] [place] [address]- 5883 24 Dec, 2012 [facility] [place] [facility] [address] [id number] [place] [address]- 3184 24 Dec, 2012 [facility] [address] [id number] [place] [address]- 2571 16 Dec, 2012 [facility] [place] [facility] [address] [id number] [place] [address]- 3266 16 Dec, 2012 [facility] [address] [id number] [place] [address]- 8068 16 Dec, 2012 [facility] [place] [facility] [address] [id number] [place] [address]- 2109 16 Dec, 2012 [facility] [place] [facility] [address] [id number], [place] [address]- 1936 14 Dec, 2012 [facility] [place] [facility] [address] [id number] [place] [address]- 2405 14 Dec, 2012 [facility] [place] [facility] [address] [id number] [place] [address]- 5053 10 Dec, 2012 [facility] [place] [facility] [address] [id number] [place] [address]- 2278 Dec, [facility] [place] [facility] [address] [id number] [place] [address]- 9319 10 Dec, 2012 [facility] [place] [facility] [address] [id number] [place] [address]- 4623 10 Dec, 2012 [facility] [place] [facility] [address] [id number] [place] [address]- 0307 Dec, [facility] [place] [facility] [address] [id number] [place] [address]- 4510 25 Nov, 2012 [facility] [place] [facility] [address] [id number] [place] [address]- 4958 20 Nov, 2012 [facility] [place] [facility] [address] [id number] [place] [address]- 1870 18 Nov, 2012 [facility] [place] [facility] [address] [id number] [place] [address]- 3840 16 Nov, 2012 [facility] [place] [facility] [address] [id number] [place] [address]- 9788 12 Nov, 2012 [facility] [place] [facility] [address] [id number] [place] [address]- 7432 11 Nov, 2012 [facility] [place] [facility] [address] [id number] [place] [address]- 2819 05 Nov, 2012 [facility] [place] [facility] [address] [id number] [place] [address]- 6087 15 Oct, 2012 [facility] [place] [facility] [address] [id number] [place] [address] Oct, [facility] [place] [facility] [address] [id number] [place] [address] Sep, [facility] [place] [facility] [address] [id number] [place] [address] Sep, [facility] [place] [facility] [address] [id number] [place] [address] Sep, [facility] [place] [facility] [address] [id number] [place] [address] 17 Sep, 2012 [facility] [address] [id number] [place] [address] 15 Sep, 2012 [facility] [address] [id number] [place] [address] 09 Sep, 2012 [facility] [address] [id number] [place] [address] 08 Sep, 2012 [facility] [address] [id number] [place] [address] Aug, [facility] [address] [id number] [place] [address] Aug, [facility] [address] [id number] [place] [address]162 16 Aug, 2012 [facility] [address] [id number] [place] [address] Aug, [facility] [address] [id number] [place] [address] Aug, [facility] [address] [id number] [place] [address] Aug, [facility] [address] [id number] [place] [address] Aug, [facility] [address] [id number] [place] [address] Aug, [facility] [place] [facility] [address] [id number] [place] [address] July, [facility] [place] [facility] [address] [id number] [place] [address] July, [facility] [place] [facility] [address] [id number] [place] [address] July, [facility] [place] [facility] [address] [id number] [place] [id number] July, [facility] [place] [facility] [address] [id number] [place] [address]- [address] July, [facility] [address] [id number] [place] [address] Jun, [facility] [place] [facility] [address] [id number] [place] [address]479 May, [facility] [address] [id number] [place] [address]- 4765 May, [facility] [place] [facility] [address] [id number] [place] [address]- 6346 May, [facility] [address] [id number] [place] [address] Apr, [facility] [address] [id number] [place] [address] Apr, [facility] [address] [id number] [place] [address]195 Apr, [facility] [address] [id number] [place] [address] Mar, [facility] [address] [id number] [place] [address] Mar, [facility] [place] [facility] [address] [id number] [place] [address] Mar, [facility] [address] [id number] [place] [address] 74[address] 14 Mar, 2012 [facility] [place] [facility] [address] [id number] [place] [address] Mar, [facility] [place] [facility] [address] [id number] [place] [address] 1877 Mar, [facility] [place] [facility] [address] [id number] [place] [address] Mar, [facility] [place] [facility] [address] [id number] [place] [address]061 31 Feb, 2012 [facility] [place] [facility] [address] [id number] [place] [address]- 1398 31 Feb, 2012 [facility] [place] [facility] [address] [id number] [place] [address]347 Feb, [facility] [place] [facility] [address] [facility] [id number] [place] [address]- [address] Feb, [facility] [place] [facility] [address] [id number] [place] [address]- 4768 Feb, [facility] [place] [facility] [address] [id number] [place] [address] Feb, [facility] [place] [facility] [address] [id number] [place] [address]- 1054 Feb, [facility] [place] [facility] [address] [id number] [place] [address]- 1696 Feb, [facility] [place] [facility] [address] [id number] [place] [address] Jan, [facility] [place] [facility] [address] [id number] [place] [address]- 5966 Jan, [facility] [place] [facility] [address] [id number] [place] [address]- 7275 Jan, [facility] [place] [facility] [address] [id number], [place] [address] Jan, [facility] [place] [facility] [address] [id number], [place] [address] Jan, [facility] [place] [facility] [address] [id number] [place] [address] Jan, [facility] [place] [facility] [address] [facility] [id number], [place] [address]- [address] Jan, [facility] [place] [facility] [address] [id number], [place] [address] Jan, [facility] [place] [facility] [address] [id number] [place] [address] 98[address] Jan, [facility] [place] [facility] [address] [id number] [place] [address]- 270[address] Jan, [facility] [place] [facility] [address] [id number] [place] [address]180 Jan, [facility] [place] [facility] [address] [id number] [place] [address]- 1748 Jan, [facility] [place] [facility] [address] [id number] [place] [address]- 0358 Jan, [facility] [place] [facility] [address] [id number] [place] [address]- 4[address] Jan, [facility] [place] [facility] [address] [id number] [place] [address]- 407[address] Jan, [facility] [place] [facility] [address] [facility] [id number] [place] [address] 8713 Jan, [facility] [place] [facility] [address] [id number] [place] [address] 0453 Dec, [facility] [place] [facility] [address] [id number] [place] [address]- 6441 Dec, [facility] [place] [facility] [address] [facility] [id number] [place] [address]- [address] Dec, [facility] [place] [facility] [address] [id number] [place] [address]- 9360 Dec, [facility] [place] [facility] [address] [id number], [place] [address] Dec, [facility] [place] [facility] [address] [id number] [place] [address] Dec, [facility] [place] [facility] [address] [facility] [id number] [place] [address]- 6205 Dec, [facility] [place] [facility] [address] [id number] [place] [address]- 5129 Dec, [facility] [place] [facility] [address] [id number] [place] [address]- 7498 08 Dec, 2011 [facility] [place] [facility] [address] [id number] [place] [address]- 4648 05 Dec, 2011 [facility] [place] [facility] [address] [id number] [place] [address]- 5295 18 Nov, 2011 [facility] [place] [facility] [address] [id number] [place] [address]- 1668 13 Nov, 2011 [facility] [place] [facility] [address] [id number] [place] [address]- 3403 24 Oct, 2011 [facility] [place] [facility] [address] [id number] [place] [address]- 7594 Oct, [facility] [place] [facility] [address] [address] [id number] [place] [address] 17 Oct, 2011 [facility] [place] [facility] [address] [id number] [place] [address] 16 Oct, 2011 [facility] [place] [facility] [address] [id number] [place] [address] Oct, [facility] [place] [facility] [address] [id number] [place] [address] Oct, [facility] [place] [facility] [address] [id number] [place] [address] Oct, [facility] [place] [facility] [address] [id number] [place] [address] Sep, [facility] [place] [facility] [address] [id number] [place] [address] Aug, [facility] [place] [facility] [address] [id number] [place] [address] Aug, [facility] [place] [facility] [address] [id number] [place] [address] Aug, [facility] [place] [facility] [address] [id number] [place] [address] Aug, [facility] [address] [id number] [place] [address] Aug, [facility] [place] [facility] [address] [id number] [place] [address] July, [facility] [place] [facility] [address] [id number] [place] [address] July, [facility] [place] [facility] [address] [id number] [place] [address] July, [facility] [place] [facility] [address] [id number] [place] [address] Jun, [facility] [place] [facility] [address] [id number] [place] [address] Jun, [facility] [place] [facility] [address] [id number] [place] [address] Jun, [facility] [place] [facility] [address] [id number] [place] [address] Jun, [facility] [place] [facility] [address] [id number] [place] [address] May, [facility] [place] [facility] [address] [id number] [place] [address] May, [facility] [place] [facility] [address] [id number] [place] [address] May, [facility] [place] [facility] [address] [id number] [place] [address] May, [facility] [place] [facility] [address] [id number] [place] [address] May, [facility] [place] [facility] [address] [id number] [place] [address]- [address] May, [facility] [place] [facility] [address] [id number] [place] [address] 164[address] May, [facility] [place] [facility] [address] [id number] [place] [address] 19 May, 2011 [facility] [address] [id number] [place] [address] 08 May, 2011 [facility] [place] [facility] [address] [id number] [place] [address]46 05 May, 2011 [facility] [address] [id number] [place] [address]46 02 May, 2011 [facility] [place] [facility] [address] [id number] [place] [address] May, [facility] [address] [id number] [place] [address] Mar, [facility] [address] [id number] [place] [address] Mar, [facility] [address] [id number] [place] [address] 8550 Feb, [facility] [address] [id number] [place] [address] Feb, [facility] [place] [facility] [address] [id number] [place] [address] Feb, [facility] [address] [id number] [place] [address] 15 Feb, 2011 [facility] [place] [facility] [address] [id number] [place] [address] Feb, [facility] [place] [facility] [address] [id number] [place] [address] 2546 Feb, [facility] [place] [facility] [address] [id number] [place] [address]- [address] Feb, [facility] [place] [facility] [address] [id number] [place] [address] Jan, [facility] [place] [facility] [address] [id number] [place] [address] Jan, [facility] [place] [facility] [address] [id number] [place] [address] Jan, [facility] [place] [facility] [address] [id number] [place] [address]47 Jan, [facility] [place] [facility] [address] [id number] [place] [address]- [address] Jan, [facility] [place] [facility] [address] [id number] [place] [address] Jan, [facility] [place] [facility] [address] [id number] [place] [address] 8742 Dec, [facility] [place] [facility] [address] [id number] [place] [address]- 0064 Dec, [facility] [place] [facility] [address] [id number] [place] [address]- 2974 Dec, [facility] [place] [facility] [address] [id number] [place] [address] July, [facility] [place] [facility] [address] [id number] [place] [address] July, [facility] [place] [facility] [address] [id number] [place] [address]- [address] Feb, [facility] [place] [facility] [address] [id number], [place] [address] Jan, [facility] [place] [facility] [address] [id number], [place] [address] Dec, [facility] [place] [facility] [address] [id number] [place] [address] 8257 Dec, [facility] [place] [facility] [address] [id number], [place] [address] Sep, [facility] [place] [facility] [address] [id number] [place] [address]141 Aug, [facility] [place] [facility] [address] [address] Jun, [facility] [address] [address] Jun, [facility] [address], [place] [address] Jan, [facility] [address], [place] [address] Jan, [facility] [address], [place] [address] Jan, [facility] [id number] [place] [address] Jan, [facility] [address], [place] [address] Dec, [facility] [address], [place] [address] Dec, [facility] [address], [place] [address] 9438 Dec, [facility] [address], [place] [address] Nov, [facility] [address], [place] [address] July, [facility] [address], [place] [address] May, [facility] [address], [place] [address] Apr, [facility] [address], [place] [address] Feb, [facility] [address] [address] Dec, IMMUNIZATIONS No Known Immunizations SOCIAL HISTORY Never Assessed REASON FOR VISIT PALS/Farxiga and Lamictal PLAN OF CARE VITAL SIGNS MEDICATIONS Medication Instructions Dosage Frequency Start Date End Date Duration Status Farxiga 5 MG Orally Once a day 1 tablet 24h Apr, 90 days Active Lamictal 200 MG Orally Once a day 1 tablet 24h May, 90 days Active RESULTS No Results PROCEDURES No [...]
--- OUTSIDE RECORDS SUMMARY | 2017-09-01 18:44 | XMS REPORT ---
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 Name Role Phone BEVERLY TAO Unavailable PROBLEMS Type Condition ICD9-CM Code PNZ21-UA Code Onset Dates Condition Status SNOMED Code Problem Diabetes E11.9 Active 131023538 Problem Lumbar radiculopathy M54.16 Active 831735279 Problem Irritable bowel syndrome with diarrhea K58.0 Active 182884239 Problem New daily persistent headache G44.52 Active 102333479 Problem Acute bilateral low back pain with right-sided sciatica M54.41 Active 134238466 Problem [facility] current 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 Z79.891 Active 445113342 Problem Bipolar 1 disorder F31.9 Active 348879075 Problem Hyperlipidemia, unspecified E78.5 Active 31578949 Problem Type 2 diabetes mellitus with complication E11.8 Active 087733886 Problem Post laminectomy syndrome M96.1 Active 04298688 Problem Eye exam normal Z01.00 Active 592212112 Problem Bipolar disorder, in partial remission, most recent episode manic F31.73 Active 68941432 Problem Extreme poverty Z59.5 Active 43402640 Problem Obesity, unspecified 278.00 Active 863558591 Problem 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 Active 94101767 Problem Hyperlipidemia 272.4 Active 75493929 Problem Non compliance with medical treatment Z91.19 Active 4533523 ALLERGIES No Information ENCOUNTERS Encounter Location Date Diagnosis [facility] [address] [facility] [id number] [address] Aug, [facility] [id number] [address] July, [facility] [id number] [address] Jun, Bipolar 1 disorder F31.9 ; 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 and Extreme poverty Z59.5 [place] [address] [place] [address] 61078- 2939 Jun, Bipolar 1 disorder F31.9 ; 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 and Extreme poverty Z59.5 [place] [id number] [place] [address] 84057- 7538 Jun, Bipolar 1 disorder F31.9 ; 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 and Extreme poverty Z59.5 [place] [id number] [place] [address] 56129- 3496 May, Urinary tract infection without hematuria, site unspecified N39.0 [place] [id number] [place] [address] 69858- 7571 May, Bipolar 1 disorder F31.9 ; 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 and Extreme poverty Z59.5 [place] [id number] [place] [address] 76784- 8598 Apr, Diabetes E11.9 and Breast cancer screening Z12.31 [place] [id number] [place] [address] 891837- 6399 20 Apr, 2017 Bipolar 1 disorder F31.9 and 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 [place] [id number] [place] [address] 33362- 2000 Mar, Bipolar 1 disorder F31.9 ; 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 and Extreme poverty Z59.5 [place] [id number] [place] [address] 27656- 0566 Mar, New daily persistent headache G44.52 ; Leg pain 729.5 and History of carpal tunnel release Z98.890 [place] [address] [place] [address] 87323- 6490 Mar, Hyperlipidemia, unspecified E78.5 [place] [id number] [place] [address] 96609- 4638 Mar, Bipolar 1 disorder F31.9 ; 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 and Extreme poverty Z59.5 [place] [id number] [place] [address] 04502- 8694 Feb, Bipolar 1 disorder F31.9 ; 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 and Extreme poverty Z59.5 [place] [id number] [place] [address] 57602- 5436 Feb, Diabetes E11.9 [place] [address] [address]64100- 3774 Feb, Viral syndrome B34.9 [place] [address] 26497- 8450 Jan, Other viral agents as the cause of diseases classified elsewhere B97.89 and Acute upper respiratory infection, unspecified J06.9 [place] [id number] [place] [address] 60522- 6373 Jan, Bipolar 1 disorder F31.9 and 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 [place] [id number] [place] [address] 31179- 6082 Jan, Bipolar 1 disorder F31.9 ; 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 and Extreme poverty Z59.5 [place] [id number] [place] [address] 02746- 8097 Dec, Diabetes E11.9 [place] [address] 60822- 0120 Dec, Diabetes E11.9 and Encounter for immunization Z23 [place] [id number] [place] [address] 37339- 1435 Dec, Bipolar 1 disorder F31.9 ; 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 and Extreme poverty Z59.5 [place] [id number] [place] [address] 62317- 2858 Dec, Back pain M54.9 [place] [address] 14708- 2246 Nov, [place] [address] [place] [address] 34988- 0844 Nov, Bipolar 1 disorder F31.9 ; 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 and Extreme poverty Z59.5 [place] [address] [place] [address] 16721- 2647 Nov, Bipolar 1 disorder F31.9 ; 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 and Extreme poverty Z59.5 [place] [id number] [place] [address] 07444- 1725 Oct, 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 and Bipolar 1 disorder F31.9 [place] [id number] [place] [address] 31277- 0552 Oct, Bipolar 1 disorder F31.9 ; 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 and Extreme poverty Z59.5 [place] [id number] [place] [address] 31057- 5017 Oct, Back pain M54.9 [place] [id number] [place] [address] 12969- 7235 Oct, 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 and Type 2 diabetes mellitus with complication E11.8 [place] [address] [place] [address] 39904- 6964 Sep, Bipolar 1 disorder F31.9 ; 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 and Extreme poverty Z59.5 [place] [address] [place] [address] 65864- 7365 Sep, 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 and Bipolar 1 disorder F31.9 [place] [id number] [place] [address] 81800- 2016 Sep, Bipolar 1 disorder F31.9 ; 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 and Extreme poverty Z59.5 [place] [address] [place] [address] 29567- 0737 Aug, Diabetes E11.9 ; Hyperlipidemia, unspecified E78.5 and Lumbar radiculopathy M54.16 [facility] [address] [address] 78[address] Aug, Bipolar 1 disorder F31.9 ; 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 and Extreme poverty Z59.5 [facility] [address] [address] 8[address] Aug, [facility] [id number] [place] [address] 10911- 9511 Aug, [facility] [id number] [place] [address] 14214- 5091 Aug, [place] [id number] [place] [address] 73605- 6110 July, [place] [id number] [place] [address] 13936- 4493 July, Acute bilateral low back pain with right-sided sciatica M54.41 [place] [address] [place] [address] 75501- 0289 July, Bipolar 1 disorder F31.9 ; 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 and Extreme poverty Z59.5 [place] [address] [place] [address] 43058- 2955 July, Back pain M54.9 and Diabetes E11.9 [place] [id number] [place] [address] 11475- 5791 Jun, Bipolar 1 disorder F31.9 ; 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 and Extreme poverty Z59.5 [place] [id number] [place] [address] 34413- 6672 Jun, Bipolar 1 disorder F31.9 ; 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 and Extreme poverty Z59.5 [place] [address] [place] [address] 92083- 5262 May, Visit for pelvic exam Z01.419 ; Acute vaginitis N76.0 and Diabetes E11.9 [place] [id number] [place] [address] 19964- 1360 May, Bipolar 1 disorder F31.9 ; 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 and Extreme poverty Z59.5 [place] [id number] [place] [address] 59951- 3537 May, [place] [address] 59464- 0888 May, [place] [address] 79787- 1483 May, Bipolar 1 disorder F31.9 ; 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 and Extreme poverty Z59.5 [place] [id number] [place] [address] 71569- 1939 May, Hyperlipidemia, unspecified E78.[address] 98259- 6853 Apr, Breast cancer screening Z12.39 [place] [address] 37681- 3681 Mar, [place] [address] 60891- 3782 Mar, Bipolar disorder, current episode mixed, unspecified F31.60 [place] [address] 75857- 3630 Mar, Bipolar 1 disorder F31.9 ; 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 and Extreme poverty Z59.5 [place] [id number] [place] [address] 85665- 5719 Feb, Acute nasopharyngitis J00 [place] [address] 17676- 6359 Feb, Dental examination Z01.20 [place] [id number] [place] [address] 19591- 1442 Feb, Dental cavities K02.9 and Chronic periodontitis, unspecified K05.30 [place] [address] [place] [address] 07273- 7608 13 Feb, 2016 Low back pain M54.5 and Extreme poverty Z59.5 [place] [address] [place] [address] 37164- 6485 08 Feb, 2016 [place] [address] 67690- 2060 05 Feb, 2016 Routine gynecological examination V72.31 ; Breast cancer screening Z12.39 and Herpes simplex type 1 infection B00.9 [place] [address] 92182- 6832 02 Feb, 2016 Diabetes E11.9 [place] [address] 89097- 4003 Feb, Encounter for dental examination and cleaning without abnormal findings Z01.20 [place] [id number] [place] [address] 61127- 7285 22 Jan, 2016 Hyperlipidemia, unspecified E78.5 [place] [address] 64918- 2211 22 Jan, 2016 Bipolar 1 disorder F31.9 ; 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 and Extreme poverty Z59.5 [place] [id number] [place] [address] 75992- 3804 18 Jan, 2016 Diabetes E11.9 [place] [id number] [place] [address] 83309- 8245 17 Jan, 2016 Diabetes E11.9 [place] [address] [place] [address] 94313- 0469 14 Dec, 2015 Bipolar 1 disorder F31.9 ; 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 and Extreme poverty Z59.5 [place] [address] [place] [address] 13570- 7600 13 Dec, 2015 Bipolar disorder, current episode mixed, unspecified F31.60 and 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 [facility] [address] [place] [address] 83167- 9299 Nov, Bipolar 1 disorder F31.9 ; 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 ; Extreme poverty Z59.5 and Non compliance with medical treatment Z91.19 [facility] [address] [place] [address] 93416- 9946 Oct, [facility] [id number] [place] [address] 96200- 1465 Oct, Dental caries K02.9 [facility] [id number] [place] [address] 63243- 6859 Oct, Low back pain M54.5 and Other chronic pain G89.29 [place] [address] [place] [address] 54593- 0224 Oct, Bipolar 1 disorder F31.9 ; 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 ; Extreme poverty Z59.5 and Non compliance with medical treatment Z91.19 [facility] [address] [place] [address] 39801- 0322 Oct, [facility] [id number] [place] [address] 77413- 3320 Oct, [facility] [id number] [place] [address] 57016- 0752 Oct, Dental examination Z01.20 [facility] [id number] [place] [address] 76812- 6858 Oct, Bipolar 1 disorder F31.9 ; 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 ; Extreme poverty Z59.5 and Non compliance with medical treatment Z91.19 [facility] [id number] [place] [address] 06345- 0689 Oct, [facility] [id number] [place] [address] 35309- 9597 Sep, Type 2 diabetes mellitus with complication E11.8 [place] [address] [place] [address]- 5509 Sep, Bipolar disorder, current episode mixed, unspecified F31.60 [place] [id number] [place] [address] 08752- 0737 Sep, Bipolar disorder, current episode mixed, unspecified F31.60 [place] [address] [place] [address] 74944- 6089 Sep, Bipolar disorder, in partial remission, most recent episode manic F31.73 ; 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 ; Extreme poverty Z59.5 and Non compliance with medical treatment Z91.19 [place] [address] [place] [address] 37514- 7396 Aug, Bipolar disorder, in partial remission, most recent episode manic F31.73 ; 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 ; Extreme poverty Z59.5 and Non compliance with medical treatment Z91.19 [place] [address] [place] [address] 06498- 8106 Aug, Bipolar disorder, in partial remission, most recent episode manic F31.73 ; 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 ; Extreme poverty Z59.5 and Non compliance with medical treatment Z91.19 [place] [address] [place] [address] 51046- 9904 Aug, [place] [address] [place] [address] 03142- 2485 July, Bipolar disorder, in partial remission, most recent episode manic F31.73 ; 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 ; Extreme poverty Z59.5 and Non compliance with medical treatment Z91.19 [place] [address] [place] [address] 97168- 1618 July, Bipolar disorder, current episode mixed, unspecified F31.60 [place] [address] [place] [address] 41116- 6274 July, Bipolar disorder, in partial remission, most recent episode manic F31.73 ; 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 ; Extreme poverty Z59.5 and Non compliance with medical treatment Z91.19 [facility] [address] [place] [address] 14602- 2876 July, [facility] current 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 Z79.891 and Chronic pain G89.29 [facility] [address] [place] [address] 73611- 9648 Jun, [facility] current 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 Z79.891 and Bipolar 1 disorder F31.9 [facility] [id number] [place] [address] 64818- 9416 Jun, [place] [id number] [place] [address] 60760- 3043 Jun, [place] [address] [place] [address] 56323- 8594 Jun, [place] [address] [place] [address] 39559- 0147 Jun, Bipolar disorder, in partial remission, most recent episode manic F31.73 ; 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 and Non compliance with medical treatment Z91.19 [place] [address] [place] [address] 66444- 1931 29 May, 2015 Bipolar disorder, in partial remission, most recent episode manic F31.73 ; 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 and Non compliance with medical treatment Z91.19 [place] [address] [place] [address] 92089- 4181 May, Bipolar disorder, in partial remission, most recent episode manic F31.73 [place] [address] [place] [address] 65854- 6396 May, Diabetes E11.9 and Chronic pain G89.29 [facility] [address] [place] [address] 69926- 5212 14 May, 2015 [place] [address] [place] [address] 14740- 5235 May, Bipolar disorder, in partial remission, most recent episode manic F31.73 ; Non compliance with medical treatment Z91.19 and 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 [place] [id number] [place] [address] 79087- 3725 May, Type 2 diabetes mellitus with complication E11.8 and Back pain M54.9 [place] [address] 68850- 4725 May, Bipolar disorder, in partial remission, most recent episode manic F31.73 and 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 [place] [address] 23606- 9302 Apr, [place] [address] 56683- 7720 Apr, [place] [address] 59064- 4460 Apr, [place] [address] 03458- 0402 Apr, Diabetes E11.9 ; Irritable bowel syndrome with diarrhea K58.0 and Lumbar radiculopathy M54.16 [place] [address] [place] [address] 70488- 8588 Apr, Breast screening Z12.39 [place] [address] [place] [address] 06910- 1373 Apr, Bipolar disorder, in partial remission, most recent episode manic F31.73 ; Non compliance with medical treatment Z91.19 and 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 [place] [address] 97556- 1644 Mar, Edema, unspecified type R60.9 and Type 2 diabetes mellitus with complication E11.8 [place] [address] [place] [address] 29028- 1850 Mar, Bipolar disorder, in partial remission, most recent episode manic F31.73 ; Non compliance with medical treatment Z91.19 ; 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 and Extreme poverty Z59.5 [place] [id number] [place] [address]- 4450 14 Mar, 2015 Bipolar disorder, current episode mixed, unspecified F31.60 ; 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 ; Extreme poverty Z59.5 and Generalized anxiety disorder F41.1 [place] [address] [place] [address] 79509- 9432 12 Mar, 2015 Bipolar disorder, in partial remission, most recent episode manic F31.73 ; 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 and Extreme poverty Z59.5 [place] [address] [place] [address] 80604- 0570 Feb, Bipolar disorder, in partial remission, most recent episode manic F31.73 ; 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 and Extreme poverty Z59.5 [place] [address] 78666- 9053 Feb, Bipolar disorder, in partial remission, most recent episode manic F31.73 ; 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 and Extreme poverty Z59.5 [place] [id number] [place] [address] 09949- 0909 Feb, [place] [address] [place] [address] 25799- 2515 Jan, Type 2 diabetes mellitus with complication E11.8 and Petechiae R23.3 [place] [address] [place] [address] 95335- 2413 Jan, Type 2 diabetes mellitus with complication E11.8 ; Edema, unspecified R60.9 ; Petechiae R23.3 and Diabetes E11.9 [place] [address] [place] [address] 83168- 0117 Jan, Bipolar disorder, in partial remission, most recent episode manic F31.73 ; 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 and Extreme poverty Z59.5 [place] [address] [place] [address] 17934- 2097 Jan, Bipolar disorder, in partial remission, most recent episode manic F31.73 ; 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 and Extreme poverty Z59.5 [place] [address] [place] [address] 67522- 3486 Dec, Bipolar disorder, in partial remission, most recent episode manic F31.73 [place] [address] 90879- 4718 Dec, Edema, due to unspecified malnutrition type, unspecified edema R60.9 and Essential hypertension I10 [address] 52170- 7327 Dec, Bipolar disorder, in partial remission, most recent episode manic F31.73 [place] [address] 77849- 8406 Nov, Bipolar I disorder, most recent episode (or current) mixed, unspecified 296.60 [place] [address] [place] [address] 54365- 9997 Nov, Stress incontinence, female 625.6 ; Back pain 724.5 and Leg pain 729.5 [place] [address] [place] [address] 89182- 0803 Nov, Generalized anxiety disorder 300.02 and Bipolar II disorder 296.89 [place] [address] [place] [address] 66376- 5773 Nov, Bipolar I disorder, most recent episode (or current) mixed, unspecified 296.60 [place] [address] 09186- 8249 Oct, [place] [address] [place] [address] 48531- 9636 Oct, [place] [address] 89431- 6297 Oct, [facility] [id number] [address]- 9640 Oct, Bipolar I disorder, most recent episode (or current) mixed, unspecified 296.60 [facility] [address]- 9632 Sep, Diabetes 250.00 [facility] [address] [address]- 5361 Sep, Bipolar I disorder, most recent episode (or current) mixed, unspecified 296.60 [facility] [address] [address]- 6154 Sep, [facility] [address]- 4193 Sep, [facility] [address] [address]- 3628 Sep, Bipolar I disorder, most recent episode (or current) mixed, unspecified 296.60 [facility] [address] [address]- 4304 Sep, Bipolar I disorder, most recent episode (or current) mixed, unspecified 296.60 [facility] [address] 2759 Sep, [facility] [address] 5110 Sep, Anxiety 300.00 ; Diabetes 250.00 and Hyperlipidemia 272.4 [facility] [address] 0258 Aug, [facility] [address] 1560 Aug, [facility] [address] 8030 Aug, [facility] [address] [address]- 5870 Aug, Bipolar I disorder, most recent episode (or current) mixed, unspecified 296.60 [facility] [address]- 7802 Aug, Generalized anxiety disorder 300.02 and Bipolar II disorder 296.89 [facility] [address] 6832 July, Bipolar I disorder, most recent episode (or current) mixed, unspecified 296.60 [facility] [address] [address]- 8856 July, Cough 786.2 [facility] [id number] [place] [address] 340854- 5522 July, Bipolar I disorder, most recent episode (or current) mixed, unspecified 296.60 [facility] [id number] [place] [address]- 9066 Jun, Diabetes 250.00 [facility] [address] [id number] [address] 3[address] 14 Jun, 2014 [facility] [id number] [place] [address] 9[address]- 6750 Jun, [facility] [id number] [address] 8514 May, [facility] [id number] [address] 8345 May, [facility] [address] [address] 5281 May, [facility] [address] 5698 May, [facility] [address] [address] May, [facility] [address] [address] May, [facility] [place] [facility] [address] [id number] [place] [address]- 9197 Apr, [facility] [place] [facility] [address] [id number] [place] [address]- 4136 Apr, [facility] [place] [facility] [address] [id number] [place] [address]- 6816 Apr, 2014 [facility] [place] [facility] [address] [id number] [place] [address] 2546 Apr, [facility] [place] [facility] [address] [id number] [place] [address]- 2544 Apr, [facility] [place] [facility] [address] [id number] [place] [address]- 9627 Apr, [facility] [place] [facility] [address] [id number] [place] [address]- 3747 Apr, [facility] [place] [facility] [address] [id number] [place] [address]- 5351 Apr, [facility] [place] [facility] [address] [id number] [place] [address]- 0388 Mar, [facility] [place] [facility] [address] [id number] [place] [address]- 2809 Mar, [facility] [place] [facility] [address] [id number] [place] [address]- 6222 Mar, [facility] [place] [facility] [address] [id number] [place] [address]- 9178 Mar, [facility] [place] [facility] [address] [id number] [place] [address]- 2746 Mar, [facility] [place] [facility] [address] [id number] [place] [address]- 2903 Mar, [facility] [place] [facility] [address] [id number] [place] [address]- 5913 Mar, [facility] [place] [facility] [address] [id number] [place] [address]- 7013 13 Mar, 2014 [facility] [place] [facility] [address] [id number] [place] [address]- 0478 Feb, [facility] [place] [facility] [address] [id number] [place] [address]- 6163 Feb, [facility] [place] [facility] [address] [id number] [place] [address]- 3111 Feb, [facility] [place] [facility] [address] [id number] [place] [address]- 6488 Feb, [facility] [place] [facility] [address] [id number] [place] [address]- 7499 Feb, [facility] [place] [facility] [address] [id number] [place] [address]- 1503 Feb, [facility] [place] [facility] [address] [id number] [place] [address]- 7124 Feb, [facility] [place] [facility] [address] [id number] [place] [address]- 1981 Feb, [facility] [place] [facility] [address] [id number] [place] [address]- 3387 Feb, [facility] [place] [facility] [address] [id number] [place] [address]- 6086 Feb, [facility] [place] [facility] [address] [id number] [place] [address]- 0673 Jan, [facility] [place] [facility] [address] [id number] [place] [address]- 3582 Jan, [facility] [place] [facility] [address] [id number] [place] [address]- 7616 Jan, [facility] [place] [facility] [address] [id number] [place] [address]- 3922 Jan, [facility] [place] [facility] [address] [id number] [place] [address]- 1797 Jan, [facility] [place] [facility] [address] [id number] [place] [address]- 8974 Jan, [facility] [place] [facility] [address] [id number] [place] [address]- 8779 Jan, [facility] [place] [facility] [address] [id number] [place] [address]- 8518 Jan, [facility] [place] [facility] [address] [id number] [place] [address]- 6143 Jan, [facility] [place] [facility] [address] [id number] [place] [address]- 2484 Jan, [facility] [place] [facility] [address] [id number] [place] [address]- 6101 Jan, [facility] [place] [facility] [address] [id number] [place] [address]- 6413 Jan, [facility] [place] [facility] [address] [id number] [place] [address]- 0888 Jan, [facility] [place] [facility] [address] [id number] [place] [address]- 1894 Jan, [facility] [place] [facility] [address] [id number] [place] [address]- 4611 Jan, [facility] [place] [facility] [address] [id number] [place] [address]- 9614 Dec, [facility] [place] [facility] [address] [id number] [place] [address]- 6426 Dec, [facility] [place] [facility] [address] [id number] [place] [address]- 4655 Dec, [facility] [place] [facility] [address] [id number] [place] [address]- 6201 Dec, [facility] [place] [facility] [address] [id number] [place] [address]- 7767 Dec, [facility] [place] [facility] [address] [id number] [address]- 5914 09 Dec, 2013 [facility] [place] [facility] [address] [id number] [place] [address]- 9340 07 Dec, 2013 [facility] [place] [facility] [address] [id number] [place] [address]- 1563 07 Dec, 2013 [facility] [place] [facility] [address] [id number] [place] [address]- 9012 25 Sep, 2013 [facility] [place] [facility] [address] [id number] [place] [address]- 2170 25 Sep, 2013 [facility] [place] [facility] [address] [id number] [place] [address]- 8104 10 Sep, 2013 [facility] [place] [facility] [address] [id number] [place] [address]- 9741 10 Nov, 2013 [facility] [place] [facility] [address] [id number] [place] [address]- 4828 08 Nov, 2013 [facility] [place] [facility] [address] [id number] [place] [address]- 5917 08 Sep, 2013 [facility] [place] [facility] [address] [id number] [place] [address]- 2729 08 Sep, 2013 [facility] [place] [facility] [address] [id number] [place] [address]- 9774 08 Sep, 2013 [facility] [place] [facility] [address] [id number] [address]- 6763 08 Sep, 2013 [facility] [place] [facility] [address] [id number] [address]- 9505 08 Sep, 2013 [facility] [place] [facility] [address] [id number] [place] [address]- 9208 04 Sep, 2013 [facility] [place] [facility] [address] [id number] [place] [address]- 5750 04 Sep, 2013 [facility] [place] [facility] [address] [id number] [place] [address]- 0991 03 Sep, 2013 [facility] [place] [facility] [address] [id number] [place] [address]- 8043 Nov, [facility] [place] [facility] [address] [id number] [place] [address]- 4976 Nov, [facility] [place] [facility] [address] [id number] [place] [address]- 7097 Oct, [facility] [place] [facility] [address] [id number] [place] [address]- 6771 Oct, [facility] [place] [facility] [address] [id number] [place] [address]- 2738 Oct, [facility] [place] [facility] [address] [id number] [place] [address]- 1325 Oct, [facility] [place] [facility] [address] [id number] [place] [address]- 7305 Oct, [facility] [place] [facility] [address] [id number] [place] [address]- 8052 Oct, [facility] [place] [facility] [address] [id number] [place] [address]- 6214 Oct, [facility] [place] [facility] [address] [id number] [place] [address]- 5128 Oct, [facility] [place] [facility] [address] [id number] [place] [address]- 3632 Oct, [facility] [place] [facility] [address] [id number] [place] [address]- 7082 Oct, [facility] [place] [facility] [address] [id number] [place] [address]- 3345 Oct, [facility] [place] [facility] [address] [id number] [place] [address]- 2609 Oct, [facility] [place] [facility] [address] [id number] [place] [address]- 2320 Oct, [facility] [place] [facility] [address] [id number] [place] [address]- 7052 Oct, [facility] [place] [facility] [address] [id number] [place] [address]- 6385 Sep, [facility] [place] [facility] [address] [id number] [place] [address]- 6614 Sep, [facility] [place] [facility] [address] [id number] [place] [address]- 0961 Sep, [facility] [place] [facility] [address] [id number] [place] [address]- 3509 Sep, [facility] [place] [facility] [address] [id number] [place] [address]- 1065 Sep, [facility] [place] [facility] [address] [id number] [place] [address]- 6958 Sep, [facility] [place] [facility] [address] [id number] [place] [address]- 0941 Sep, [facility] [place] [facility] [address] [id number] [place] [address]- 2964 Sep, [facility] [place] [facility] [address] [id number] [place] [address]- 3827 Aug, [facility] [place] [facility] [address] [id number] [place] [address]- 1863 Aug, [facility] [place] [facility] [address] [id number] [place] [address]- 3312 Aug, [facility] [place] [facility] [address] [id number] [place] [address]- 7648 Aug, [facility] [place] [facility] [address] [id number] [place] [address]- 2437 Aug, [facility] [place] [facility] [address] [id number] [place] [address]- 3356 Aug, [facility] [place] [facility] [address] [id number] [place] [address]- 4403 Aug, [facility] [place] [facility] [address] [id number] [place] [address]- 3783 Aug, [facility] [address] [id number] [place] [address]- 8451 July, [facility] [place] [facility] [address] [id number] [place] [address]- 6278 July, [facility] [place] [facility] [address] [id number] [place] [address]- 8135 July, [facility] [place] [facility] [address] [id number] [place] [address]- 2480 July, [facility] [place] [facility] [address] [id number] [place] [address]- 3525 July, [facility] [place] [facility] [address] [id number] [place] [address]- 3673 July, [facility] [place] [facility] [address] [id number] [place] [address]- 2672 July, [facility] [place] [facility] [address] [id number] [place] [address]- 3688 July, [facility] [place] [facility] [address] [id number] [place] [address]- 8502 Jun, [facility] [place] [facility] [address] [id number] [place] [address]- 8968 Jun, [facility] [place] [facility] [address] [id number] [place] [address]- 4348 Jun, [facility] [place] [facility] [address] [id number] [place] [address]- 2278 Jun, [facility] [place] [facility] [address] [id number] [place] [address]- 6743 Jun, [facility] [place] [facility] [address] [id number] [place] [address]- 6315 Jun, [facility] [place] [facility] [address] [id number] [place] [address]- 8959 Jun, [facility] [place] [facility] [address] [id number] [place] [address]- 5937 15 Jun, 2013 [facility] [place] [facility] [address] [id number] [place] [address]- 3791 Jun, [facility] [place] [facility] [address] [id number] [place] [address]- 8416 Jun, [facility] [place] [facility] [address] [id number] [place] [address]- 0797 Jun, [facility] [place] [facility] [address] [id number] [place] [address]- 1159 Jun, [facility] [place] [facility] [address] [id number] [place] [address]- 1506 May, [facility] [place] [facility] [address] [id number] [place] [address]- 3405 May, [facility] [place] [facility] [address] [id number] [place] [address]- 8361 May, [facility] [place] [facility] [address] [id number] [place] [address]- 8304 May, [facility] [place] [facility] [address] [id number] [place] [address]- 8658 May, [facility] [place] [facility] [address] [id number] [place] [address]- 6227 May, [facility] [place] [facility] [address] [id number] [place] [address]- 3537 May, [facility] [place] [facility] [address] [id number] [place] [address]- 1275 May, [facility] [place] [facility] [address] [id number] [place] [address]- 4960 May, [facility] [place] [facility] [address] [id number] [place] 2805 May, [facility] [place] [facility] [address] [id number] [place] [address]- 5993 May, [facility] [place] [facility] [address] [id number] [place] [address]- 2316 May, [facility] [place] [facility] [address] [id number] [place] [address]- 8006 May, [facility] [place] [facility] [address] [id number] [place] [address]- 7222 May, [facility] [place] [facility] [address] [id number] [place] [address]- 7917 Apr, [facility] [place] [facility] [address] [id number] [place] [address]- 7535 Apr, [facility] [place] [facility] [address] [id number] [place] [address]- 6120 Apr, [facility] [place] [facility] [address] [id number] [place] [address]- 5144 Apr, [facility] [place] [facility] [address] [id number] [place] [address]- 7599 Apr, [facility] [place] [facility] [address] [id number] [place] [address]- 1583 Apr, [facility] [place] [facility] [address] [id number] [place] [address]- 3828 Mar, [facility] [place] [facility] [address] [id number] [place] [address]- 1883 Mar, [facility] [place] [facility] [address] [id number] [place] [address]- 4852 Mar, [facility] [place] [facility] [address] [id number] [place] [address]- 2134 Mar, [facility] [place] [facility] [address] [id number] [place] [address]- 2916 Mar, [facility] [place] [facility] [address] [id number] [place] [address]- 2648 Mar, [facility] [place] [facility] [address] [id number] [place] [address]- 9776 Mar, [facility] [address] [id number] [place] [address]- 7411 Mar, [facility] [address] [id number] [place] [address]- 8586 Mar, [facility] [address] [id number] [place] [address]- 7799 Mar, [facility] [address] [id number] [place] [address]- 0909 Mar, [facility] [address] [id number] [place] [address]- 4766 Mar, [facility] [address] [id number] [place] [address]- 5671 Mar, [facility] [address] [id number] [place] [address]- 9814 Mar, [facility] [address] [id number] [place] [address]- 5979 Feb, [facility] [address] [id number] [place] [address]- 3345 Feb, [facility] [address] [id number] [place] [address]- 5281 Feb, [facility] [address] [id number] [place] [address]- 5797 Feb, [facility] [address] [id number] [place] [address]- 2542 Feb, [facility] [place] [facility] [address] [id number] [place] [address]- 3789 Feb, [facility] [address] [id number] [place] [address]- 6353 Feb, [facility] [address] [id number] [place] [address]- 7856 Feb, [facility] [place] [facility] [address] [id number] [place] [address]- 0482 Feb, 2012 [facility] [place] [facility] [address] [id number] [place] 2616 Feb, 2012 [facility] [place] [facility] [address] [id number] [place] [address]- 9804 Feb, 2012 [facility] [place] [facility] [address] [id number] [place] [address]- 2904 Feb, 2012 [facility] [place] [facility] [address] [id number] [place] 6806 Feb, [facility] [place] [facility] [address] [id number] [place] [address]- 1825 Feb, [facility] [place] [facility] [address] [id number] [place] [address]- 2702 Feb, [facility] [place] [facility] [address] [id number] [address]- 4427 Feb, [facility] [place] [facility] [address] [id number] [place] [address]- 8326 24 Dec, 2012 [facility] [place] [facility] [address] [id number] [address]- 7947 24 Dec, 2012 [facility] [place] [facility] [address] [id number] [address]- 6446 16 Dec, 2012 [facility] [place] [facility] [address] [id number] [place] [address]- 8974 16 Dec, 2012 [facility] [place] [facility] [address] [id number] [address]- 4357 16 Dec, 2012 [facility] [place] [facility] [address] [id number] [place] [address]- 7479 16 Dec, 2012 [facility] [place] [facility] [address] [id number] [place] [address]- 0644 14 Dec, 2012 [facility] [place] [facility] [address] [id number] [place] [address]- 9325 14 Dec, 2012 [facility] [place] [facility] [address] [id number] [place] [address]- 1631 10 Dec, 2012 [facility] [place] [facility] [address] [id number] [place] [address]- 1660 10 Dec, 2012 [facility] [place] [facility] [address] [id number] [place] [address]- 6186 10 Dec, 2012 [facility] [place] [facility] [address] [id number] [place] [address]- 3795 10 Dec, 2012 [facility] [place] [facility] [address] [id number] [place] [address]- 5216 03 Dec, 2012 [facility] [place] [facility] [address] [id number] [place] [address]- 5942 25 Nov, 2012 [facility] [place] [facility] [address] [id number] [place] [address]- 0937 20 Nov, 2012 [facility] [place] [facility] [address] [id number] [place] [address]- 0479 18 Nov, 2012 [facility] [place] [facility] [address] [id number] [place] [address]- 7926 16 Nov, 2012 [facility] [place] [facility] [address] [id number] [place] [address]- 9084 12 Nov, 2012 [facility] [place] [facility] [address] [id number] [place] [address]- 3896 11 Nov, 2012 [facility] [place] [facility] [address] [id number] [address]- 2547 05 Nov, 2012 [facility] [place] [facility] [address] [id number] [place] [address]- 5721 15 Oct, 2012 [facility] [place] [facility] [address] [id number] [place] [address]- 7084 Oct, [facility] [place] [facility] [address] [id number] [place] [address]- 6774 24 Sep, 2012 [facility] [place] [facility] [address] [id number] [place] [address]- 6674 23 Sep, 2012 [facility] [place] [facility] [address] [id number] [place] [address]- 2035 18 Sep, 2012 [facility] [place] [facility] [address] [id number] [place] [address]- 2546 17 Sep, 2012 [facility] [place] [facility] [address] [id number] [place] [address]- 6347 15 Sep, 2012 [facility] [place] [facility] [address] [id number] [place] [address] 09 Sep, 2012 [facility] [place] [facility] [address] [id number] [place] [address] Sep, [facility] [place] [facility] [address] [id number] [place] [address] Aug, [facility] [place] [facility] [address] [id number] [place] [address] Aug, [facility] [place] [facility] [address] [id number] [place] [address] 16 Aug, 2012 [facility] [place] [facility] [address] [id number] [place] [address] Aug, [facility] [place] [facility] [address] [id number] [place] [address] Aug, [facility] [place] [facility] [address] [id number] [place] [address] Aug, [facility] [place] [facility] [address] [id number] [place] [address] Aug, [facility] [place] [facility] [address] [id number] [place] [address] Aug, [facility] [place] [facility] [address] [id number] [place] [address] July, [facility] [place] [facility] [address] [id number] [place] [address] July, [facility] [address] [id number] [place] [address]295 July, [facility] [address] [id number] [place] [id number] July, [facility] [address] [id number] [place] [address] July, [facility] [address] [id number] [place] [address] Jun, [facility] [address] [id number] [place] [address] May, [facility] [address] [id number] [place] [address] 8066 May, [facility] [address] [id number] [place] [address]076 May, [facility] [address] [id number] [address] Apr, [facility] [address] [id number] [place] [address] Apr, [facility] [address] [id number] [place] [address] Apr, [facility] [address] [id number] [place] [address] Mar, [facility] [address] [id number] [address] Mar, [facility] [address] [id number] [place] [address] Mar, [facility] [address] [id number] [place] [address] 2736 Mar, [facility] [address] [id number] [place] [address] 1546 Mar, [facility] [address] [id number] [place] [address]297 Mar, [facility] [address] [id number] [place] [address] 46[address] Mar, [facility] [address] [id number] [place] [address] Feb, [facility] [address] [id number] [place] [address]884 Feb, [facility] [address] [id number] [place] [address] 1633 Feb, [facility] [address] [id number] [place] [address] Feb, [facility] [address] [id number] [place] [address] Feb, [facility] [address] [id number] [place] [address] Feb, [facility] [address] [id number] [place] [address] 3275 Feb, [facility] [address] [id number] [place] [address] Feb, [facility] [address] [id number] [place] [address] Jan, [facility] [address] [id number] [place] [address] Jan, [facility] [address] [id number] [place] [address]558 Jan, [facility] [place] [facility] [address] [id number] [place] [address] Jan, [facility] [address] [id number] [place] [address] 164[address] Jan, [facility] [address] [id number] [place] [address] 46[address] Jan, [facility] [place] [facility] [address] [id number] [place] [address] 376[address] Jan, [facility] [place] [facility] [address] [id number] [place] [address]84 Jan, [facility] [place] [facility] [address] [id number] [place] [address]- 4546 Jan, [facility] [place] [facility] [address] [id number] [place] [address]21 Jan, [facility] [place] [facility] [address] [id number] [place] [address] 89[address] Jan, [facility] [place] [facility] [address] [id number] [place] [address] 4150 Jan, [facility] [place] [facility] [address] [facility] [id number] [place] [address]169 Jan, [facility] [place] [facility] [address] [id number] [place] [address] 34[address] Jan, [facility] [place] [facility] [address] [id number] [place] [address] 4546 Jan, [facility] [place] [facility] [address] [id number] [place] [address] Jan, [facility] [place] [facility] [address] [facility] [id number] [place] [address] Dec, [facility] [place] [facility] [address] [id number] [place] [address] Dec, [facility] [place] [facility] [address] [id number] [place] [address] Dec, [facility] [place] [facility] [address] [id number] [place] [address] Dec, [facility] [place] [facility] [address] [facility] [id number] [place] [address] Dec, [facility] [place] [facility] [address] [id number] [place] [address] Dec, [facility] [place] [facility] [address] [id number] [place] [address] Dec, [facility] [place] [facility] [address] [id number] [place] [address] Dec, [facility] [place] [facility] [address] [id number] [place] [address] 6289 08 Dec, 2011 [facility] [place] [facility] [address] [id number] [place] [address] 5986 05 Dec, 2011 [facility] [place] [facility] [address] [id number] [place] [address] 5321 18 Nov, 2011 [facility] [place] [facility] [address] [id number] [place] [address]- 1076 13 Nov, 2011 [facility] [place] [facility] [address] [id number] [place] [address]- 4607 24 Oct, 2011 [facility] [place] [facility] [address] [id number] [place] [address]- 1533 Oct, [facility] [place] [facility] [address] [id number] [place] [address]- 1774 Oct, [facility] [place] [facility] [address] [id number] [place] [address]- 2507 16 Oct, 2011 [facility] [place] [facility] [address] [id number] [place] [address]- 4687 Oct, [facility] [place] [facility] [address] [id number] [place] [address]- 5646 Oct, [facility] [place] [facility] [address] [id number] [place] [address]- 5932 Oct, [facility] [place] [facility] [address] [id number] [place] [address]- 7854 Sep, [facility] [place] [facility] [address] [id number] [place] [address] Aug, [facility] [place] [facility] [address] [id number] [place] [address] 18 Aug, 2011 [facility] [place] [facility] [address] [id number] [place] [address] Aug, [facility] [place] [facility] [address] [id number] [place] [address] Aug, [facility] [place] [facility] [address] [id number] [place] [address] Aug, [facility] [place] [facility] [address] [id number] [place] [address] July, [facility] [place] [facility] [address] [id number] [place] [address] July, [facility] [place] [facility] [address] [id number] [place] [address] July, [facility] [place] [facility] [address] [id number] [place] [address] Jun, [facility] [address] [id number] [place] [address] Jun, [facility] [place] [facility] [address] [id number] [place] [address] Jun, [facility] [place] [facility] [address] [id number] [place] [address] Jun, [facility] [place] [facility] [address] [id number] [place] [address] May, [facility] [place] [facility] [address] [id number] [place] [address] 30 May, 2011 [facility] [place] [facility] [address] [id number] [place] [address] 29 May, 2011 [facility] [place] [facility] [address] [id number] [place] [address] May, [facility] [place] [facility] [address] [id number] [place] [address] May, [facility] [address] [id number] [place] [address] 22 May, 2011 [facility] [place] [facility] [address] [id number] [place] [address] 134[address] May, [facility] [place] [facility] [address] [id number] [place] [address]27 19 May, 2011 [facility] [place] [facility] [address] [id number] [place] [address] 08 May, 2011 [facility] [place] [facility] [address] [id number] [place] [address] 05 May, 2011 [facility] [place] [facility] [address] [id number] [place] [address] May, [facility] [place] [facility] [address] [id number] [place] [address] May, [facility] [place] [facility] [address] [id number] [place] [address] Mar, [facility] [place] [facility] [address] [id number] [place] [address] Mar, [facility] [place] [facility] [address] [id number] [place] [address] 28 Feb, 2011 [facility] [place] [facility] [address] [id number] [place] [address] Feb, [facility] [place] [facility] [address] [id number] [place] [address] 20 Feb, 2011 [facility] [place] [facility] [address] [id number] [place] [address] 15 Feb, 2011 [facility] [place] [facility] [address] [id number] [place] [address] 13 Feb, 2011 [facility] [place] [facility] [address] [id number] [place] [address] 13 Feb, 2011 [facility] [place] [facility] [address] [id number] [place] [address] 13 Feb, 2011 [facility] [place] [facility] [address] [id number] [place] [address] 28 Jan, 2011 [facility] [place] [facility] [address] [id number] [place] [address] Jan, [facility] [place] [facility] [address] [id number] [place] [address] Jan, [facility] [place] [facility] [address] [id number] [place] [address] 17 Jan, 2011 [facility] [place] [facility] [address] [id number] [place] [address] 24[address] Jan, [facility] [place] [facility] [address] [id number] [place] [address] Jan, [facility] [place] [facility] [address] [id number] [place] [address] Dec, [facility] [place] [facility] [address] [id number] [place] [address] Dec, [facility] [place] [facility] [address] [id number] [place] [address] Dec, [facility] [place] [facility] [address] [id number] [place] [address] July, [facility] [place] [facility] [address] [id number] [place] [address] 164[address] July, [facility] [place] [facility] [address] [id number] [place] [address] 08 Feb, 2010 [facility] [place] [facility] [address] [id number] [place] [address]67 18 Jan, 2010 [facility] [place] [facility] [address] [id number] [place] [address] Dec, [facility] [place] [facility] [address] [id number] [place] [address] Dec, [facility] [place] [facility] [address] [id number] [place] [address] 15 Sep, 2009 [facility] [place] [facility] [address] [id number] [place] [address]26 Aug, [facility] [place] [facility] [address] [id number] [place] [address] Jun, [facility] [place] [facility] [address] [id number] [place] [address] Jun, [facility] [place] [facility] [address] [id number] [place] [address] Jan, [facility] [place] [facility] [address] [id number] [place] [address] Jan, [facility] [place] [facility] [address] [facility] [id number] [place] [address]- [address] Jan, [facility] [place] [facility] [address] [id number] [place] [address] 285[address] Jan, [facility] [place] [facility] [address] [id number] [place] [address] Dec, [facility] [place] [facility] [address] [id number] [place] [address]841 Dec, [facility] [place] [facility] [address] [facility] [id number] [place] [address]181 Dec, [facility] [place] [facility] [address] [id number] [address] Nov, [facility] [place] [facility] [address] [id number] [place] [address] July, [facility] [place] [facility] [address] [id number] [place] [address] May, [facility] [place] [facility] [address] [id number] [address] Apr, [facility] [place] [facility] [address] [id number] [address] Feb, [facility] [address] [facility] [id number] [place] [address] Dec, IMMUNIZATIONS No Known Immunizations SOCIAL HISTORY Never Assessed REASON FOR VISIT Tizanidine clarification/Refill Request PLAN OF CARE VITAL SIGNS MEDICATIONS Medication Instructions Dosage Frequency Start Date End Date Duration Status Tizanidine HCl 4 MG Orally Once a day 1 tablet as needed at bedtime 24h July, 30 days Active RESULTS No Results PROCEDURES No [...]
[2017-09-01 18:45] VITALS: BP 145/80
--- OUTSIDE RECORDS SUMMARY | 2017-09-01 18:46 | XMS REPORT ---
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 Active 163485619 Problem Bipolar 1 disorder F31.9 Active 686526470 Problem Hyperlipidemia, unspecified E78.5 Active 95198476 Problem Type 2 diabetes mellitus with complication E11.8 Active 352792344 Problem Post laminectomy syndrome M96.1 Active 77723343 Problem Eye exam normal Z01.00 Active 980627924 Problem Bipolar disorder, in partial remission, most recent episode manic F31.73 Active 58307071 Problem Extreme poverty Z59.5 Active 76845601 Problem Obesity, unspecified 278.00 Active 587949219 Problem 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 Active 57495029 Problem Hyperlipidemia 272.4 Active 63674691 Problem Non compliance with medical treatment Z91.19 Active [id number] ALLERGIES No Information ENCOUNTERS Encounter Location Date Diagnosis [facility] [id number] [address] Aug, [facility] [address] [address] Jun, [facility] [address] [address] Jun, [facility] [id number] [place] [address] 59718- 2933 May, Urinary tract infection without hematuria, site unspecified N39.0 [place] [id number] [place] [address] 04439- 7850 May, Bipolar 1 disorder F31.9 ; 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 and Extreme poverty Z59.5 [place] [id number] [place] [address] 34314- 9290 28 Apr, 2017 Diabetes E11.9 and Breast cancer screening Z12.31 [facility] [id number] [place] [address] 73797- 1361 Apr, Bipolar 1 disorder F31.9 and 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 [place] [id number] [place] [address] 50107- 4024 Mar, Bipolar 1 disorder F31.9 ; 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 and Extreme poverty Z59.5 [place] [id number] [place] [address] 31299- 9199 Mar, New daily persistent headache G44.52 ; Leg pain 729.5 and History of carpal tunnel release Z98.890 [place] [id number] [place] [address] 42887- 1071 Mar, Hyperlipidemia, unspecified E78.5 [place] [id number] [place] [address] 21914- 8749 Mar, Bipolar 1 disorder F31.9 ; 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 and Extreme poverty Z59.5 [facility] [id number] [place] [address] 65749- 7377 Feb, Bipolar 1 disorder F31.9 ; 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 and Extreme poverty Z59.5 [place] [id number] [place] [address] 95531- 0628 Feb, Diabetes E11.9 [place] [id number] [place] [id number] Feb, Viral syndrome B34.9 [facility] [place] [id number] [place] [address] 73006- 7558 Jan, Other viral agents as the cause of diseases classified elsewhere B97.89 and Acute upper respiratory infection, unspecified J06.9 [facility] [id number] [place] [address] 51120- 3202 Jan, Bipolar 1 disorder F31.9 and 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 [place] [id number] [place] [address] 76391- 7515 Jan, Bipolar 1 disorder F31.9 ; 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 and Extreme poverty Z59.5 [place] [id number] [place] [address] 93066- 6619 Dec, Diabetes E11.9 [place] [id number] [place] [address] 81397- 8535 Dec, Diabetes E11.9 and Encounter for immunization Z23 [place] [id number] [place] [address] 66620- 0110 Dec, Bipolar 1 disorder F31.9 ; 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 and Extreme poverty Z59.5 [place] [id number] [place] [address] 76166- 2647 Dec, Back pain M54.9 [facility] [place] [id number] [place] [address] 32871- 6098 Nov, [facility] [id number] [place] [address] 69881- 1735 Nov, Bipolar 1 disorder F31.9 ; 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 and Extreme poverty Z59.5 [place] [id number] [place] [address] 09754- 8869 05 Nov, 2016 Bipolar 1 disorder F31.9 ; 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 and Extreme poverty Z59.5 [place] [id number] [address] 7273 17 Oct, 2016 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 and Bipolar 1 disorder F31.9 [facility] [id number] [place] [address] 98249- 1687 Oct, Bipolar 1 disorder F31.9 ; 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 and Extreme poverty Z59.5 [place] [id number] [place] [address] 25138- 1397 Oct, Back pain M54.9 [place] [id number] [place] [address] 73610- 5526 Oct, 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 and Type 2 diabetes mellitus with complication E11.8 [facility] [id number] [place] [address] 82281- 9449 Sep, Bipolar 1 disorder F31.9 ; 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 and Extreme poverty Z59.5 [place] [id number] [place] [address] 34817- 1954 Sep, 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 and Bipolar 1 disorder F31.9 [place] [id number] [place] [address] 12466- 0312 Sep, Bipolar 1 disorder F31.9 ; 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 and Extreme poverty Z59.5 [place] [address] [place] [address] 02121- 1512 Aug, Diabetes E11.9 ; Hyperlipidemia, unspecified E78.5 and Lumbar radiculopathy M54.16 [place] [id number] [place] [address] 88963- 8254 15 Aug, 2016 Bipolar 1 disorder F31.9 ; 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 and Extreme poverty Z59.5 [place] [id number] [place] [address] 67009- 2757 Aug, [place] [id number] [place] [address] 71169- 7538 Aug, [facility] [address], [place] [address] 4826 Aug, [facility] [id number] [place] [address] 40824- 4759 July, [facility] [id number] [place] [address] 74001- 8475 July, Acute bilateral low back pain with right-sided sciatica M54.41 [facility] [id number] [place] [address] 70404- 9601 July, Bipolar 1 disorder F31.9 ; 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 and Extreme poverty Z59.5 [place] [id number] [place] [address] 34325- 2467 July, Back pain M54.9 and Diabetes E11.9 [place] [id number] [place] [address] 51093- 2241 Jun, Bipolar 1 disorder F31.9 ; 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 and Extreme poverty Z59.5 [place] [id number] [place] [address] 12727- 1809 Jun, Bipolar 1 disorder F31.9 ; 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 and Extreme poverty Z59.5 [place] [id number] [place] [address] 16529- 1710 May, Visit for pelvic exam Z01.419 ; Acute vaginitis N76.0 and Diabetes E11.9 [facility] [address], [place] [address]- 0046 May, Bipolar 1 disorder F31.9 ; 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 and Extreme poverty Z59.5 [place] [id number] [place] [address] 41977- 3386 May, [place] [id number] [place] [address] 87003- 5357 May, [place] [id number] [place] [address] 40461- 7872 May, Bipolar 1 disorder F31.9 ; 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 and Extreme poverty Z59.5 [place] [id number] [place] [address] 73399- 7602 May, Hyperlipidemia, unspecified E78.5 [place] [address] 31859- 2928 13 Apr, 2016 Breast cancer screening Z12.39 [place] [address] 35131- 6963 Mar, [place] [address] 97840- 8749 Mar, Bipolar disorder, current episode mixed, unspecified F31.60 [place] [address] 59677- 6964 Mar, Bipolar 1 disorder F31.9 ; 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 and Extreme poverty Z59.5 [place] [address] 94907- 5107 Feb, Acute nasopharyngitis J00 [place] [id number] [place] [address] 76163- 5250 Feb, Dental examination Z01.20 [place] [address] 43882- 3249 Feb, Dental cavities K02.9 and Chronic periodontitis, unspecified K05.30 [place] [id number] [place] [address] 22727- 5478 Feb, Low back pain M54.5 and Extreme poverty Z59.5 [place] [address] 99091- 3523 Feb, [place] [address] 64231- 5662 Feb, Routine gynecological examination V72.31 ; Breast cancer screening Z12.39 and Herpes simplex type 1 infection B00.9 [place] [id number] [place] [address] 65265- 9301 Feb, Diabetes E11.9 [place] [id number] [place] [address] 3590 Feb, Encounter for dental examination and cleaning without abnormal findings Z01.20 [place] [address] 67459- 9661 Jan, Hyperlipidemia, unspecified E78.5 [place] [id number] [place] [address] 55338- 3793 Jan, Bipolar 1 disorder F31.9 ; 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 and Extreme poverty Z59.5 [place] [id number] [place] [address] 90792- 8537 18 Jan, 2016 Diabetes E11.9 [place] [id number] [place] [address] 87485- 4077 17 Jan, 2016 Diabetes E11.9 [place] [id number] [place] [address] 82491- 3379 14 Dec, 2015 Bipolar 1 disorder F31.9 ; 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 and Extreme poverty Z59.5 [place] [id number] [place] [address] 81671- 5057 13 Dec, 2015 Bipolar disorder, current episode mixed, unspecified F31.60 and 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 [place] [id number] [place] [address] 30564- 1837 16 Nov, 2015 Bipolar 1 disorder F31.9 ; 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 ; Extreme poverty Z59.5 and Non compliance with medical treatment Z91.19 [place] [id number] [place] [address] 47479- 8543 Oct, [place] [id number] [place] [address] 56153- 1385 Oct, Dental caries K02.9 [place] [id number] [place] [address] 23516- 5255 Oct, Low back pain M54.5 and Other chronic pain G89.29 [place] [id number] [place] [address] 99559- 0076 Oct, Bipolar 1 disorder F31.9 ; 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 ; Extreme poverty Z59.5 and Non compliance with medical treatment Z91.19 [place] [id number] [place] [address] 64922- 3081 Oct, [place] [address] 07788- 6741 Oct, [place] [id number] [place] [address] 61306- 2661 Oct, Dental examination Z01.20 [place] [id number] [place] [address] 60279- 9977 Oct, Bipolar 1 disorder F31.9 ; 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 ; Extreme poverty Z59.5 and Non compliance with medical treatment Z91.19 [place] [id number] [place] [address] 01543- 8415 Oct, [place] [id number] [place] [address] 82281- 9103 Sep, Type 2 diabetes mellitus with complication E11.8 [place] [id number] [place] [address] 04003- 9570 Sep, Bipolar disorder, current episode mixed, unspecified F31.60 [place] [id number] [place] [address] 93907- 4279 Sep, Bipolar disorder, current episode mixed, unspecified F31.60 [place] [id number] [place] [address] 56529- 4987 Sep, Bipolar disorder, in partial remission, most recent episode manic F31.73 ; 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 ; Extreme poverty Z59.5 and Non compliance with medical treatment Z91.19 [place] [address] [place] [address] 65578- 6183 Aug, Bipolar disorder, in partial remission, most recent episode manic F31.73 ; 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 ; Extreme poverty Z59.5 and Non compliance with medical treatment Z91.19 [place] [id number] [place] [address] 65803- 4294 Aug, Bipolar disorder, in partial remission, most recent episode manic F31.73 ; 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 ; Extreme poverty Z59.5 and Non compliance with medical treatment Z91.19 [place] [id number] [place] [address] 92809- 0710 Aug, [place] [address] [place] [address] 81832- 2211 July, Bipolar disorder, in partial remission, most recent episode manic F31.73 ; 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 ; Extreme poverty Z59.5 and Non compliance with medical treatment Z91.19 [place] [address] [place] [address] 89824- 3166 July, Bipolar disorder, current episode mixed, unspecified F31.60 [place] [address] [place] [address] 07646- 5708 July, Bipolar disorder, in partial remission, most recent episode manic F31.73 ; 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 ; Extreme poverty Z59.5 and Non compliance with medical treatment Z91.19 [place] [address] [place] [address] 48247- 8863 July, 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 and Chronic pain G89.29 [place] [address] [place] [address] 28679- 8052 Jun, 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 and Bipolar 1 disorder F31.9 [place] [address] [address]- 0166 Jun, [facility] [address], [place] [address]- 3718 Jun, [facility] [id number] [place] [address] 04357- 0541 Jun, [place] [address] [place] [address] 67719- 7590 Jun, Bipolar disorder, in partial remission, most recent episode manic F31.73 ; 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 and Non compliance with medical treatment Z91.19 [place] [address] [place] [address] 60086- 7954 May, Bipolar disorder, in partial remission, most recent episode manic F31.73 ; 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 and Non compliance with medical treatment Z91.19 [place] [id number] [place] [address] 32411- 4626 May, Bipolar disorder, in partial remission, most recent episode manic F31.73 [facility] [address] [place] [address] 68499- 1952 May, Diabetes E11.9 and Chronic pain G89.29 [facility] [address] [address]- 3188 May, [facility] [address] [place] [address] 54478- 0310 May, Bipolar disorder, in partial remission, most recent episode manic F31.73 ; Non compliance with medical treatment Z91.19 and 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 [facility] [address] [place] [address] 86665- 7221 May, Type 2 diabetes mellitus with complication E11.8 and Back pain M54.9 [facility] [address], [place] [address]- 1672 May, Bipolar disorder, in partial remission, most recent episode manic F31.73 and 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 [place] [id number] [place] [address] 25604- 2779 Apr, [place] [address] [place] [address] [id number]- 1156 Apr, [place] [address] 75696- 8554 Apr, [place] [address] [place] [address] [address]1990[address]- 3015 Apr, Diabetes E11.9 ; Irritable bowel syndrome with diarrhea K58.0 and Lumbar radiculopathy M54.16 [place] [address] 16981- 8645 Apr, Breast screening Z12.[address] 41680- 9503 Apr, Bipolar disorder, in partial remission, most recent episode manic F31.73 ; Non compliance with medical treatment Z91.19 and 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 [place] [address] 29787- 1090 Mar, Edema, unspecified type R60.9 and Type 2 diabetes mellitus with complication E11.8 [place] [id number] [place] [address] 74032- 2648 Mar, Bipolar disorder, in partial remission, most recent episode manic F31.73 ; Non compliance with medical treatment Z91.19 ; 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 and Extreme poverty Z59.5 [place] [id number] [place] [address] 00187- 7649 Mar, Bipolar disorder, current episode mixed, unspecified F31.60 ; 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 ; Extreme poverty Z59.5 and Generalized anxiety disorder F41.[address] 34329- 3097 Mar, Bipolar disorder, in partial remission, most recent episode manic F31.73 ; 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 and Extreme poverty Z59.5 [place] [id number] [place] [address] 26871- 3557 Feb, Bipolar disorder, in partial remission, most recent episode manic F31.73 ; 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 and Extreme poverty Z59.5 [place] [id number] [place] [address] 67548- 2362 Feb, Bipolar disorder, in partial remission, most recent episode manic F31.73 ; 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 and Extreme poverty Z59.5 [place] [id number] [place] [address] 53480- 8891 Feb, [place] [id number] [place] [address] 10289- 7530 Jan, Type 2 diabetes mellitus with complication E11.8 and Petechiae R23.3 [place] [id number] [place] [address] 68958- 6999 Jan, Type 2 diabetes mellitus with complication E11.8 ; Edema, unspecified R60.9 ; Petechiae R23.3 and Diabetes E11.9 [place] [address] [place] [address] 38715- 8079 Jan, Bipolar disorder, in partial remission, most recent episode manic F31.73 ; 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 and Extreme poverty Z59.5 [place] [address] [place] [address] 14097- 2785 Jan, Bipolar disorder, in partial remission, most recent episode manic F31.73 ; 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 and Extreme poverty Z59.5 [place] [address] [place] [address] 13982- 2754 Dec, Bipolar disorder, in partial remission, most recent episode manic F31.73 [place] [id number] [place] [address] 84265- 1103 Dec, Edema, due to unspecified malnutrition type, unspecified edema R60.9 and Essential hypertension I10 [place] [address] 55119- 3065 Dec, Bipolar disorder, in partial remission, most recent episode manic F31.73 [place] [address] 56703- 1041 Nov, Bipolar I disorder, most recent episode (or current) mixed, unspecified 296.60 [place] [address] 49957- 5137 Nov, Stress incontinence, female 625.6 ; Back pain 724.5 and Leg pain 729.5 [place] [id number] [place] [address] 65657- 2495 Nov, Generalized anxiety disorder 300.02 and Bipolar II disorder 296.89 [place] [address] 18235- 6278 Nov, Bipolar I disorder, most recent episode (or current) mixed, unspecified 296.60 [facility] [address] 48201- 5036 Oct, [facility] [id number] [place] [address] 11552- 6644 Oct, [facility] [id number] [place] [address] 71291- 0778 Oct, [facility] [id number] [place] [address] 74622- 0516 Oct, Bipolar I disorder, most recent episode (or current) mixed, unspecified 296.60 [facility] [id number] [place] [address] 80826- 0163 Sep, Diabetes 250.00 [facility] [id number] [place] [address] 47656- 3325 Sep, Bipolar I disorder, most recent episode (or current) mixed, unspecified 296.60 [facility] [id number] [address]- 9322 Sep, [facility] [address] [address]- 7422 Sep, [facility] [address] [address]- 4671 Sep, Bipolar I disorder, most recent episode (or current) mixed, unspecified 296.60 [facility] [address] [address]- 4271 Sep, Bipolar I disorder, most recent episode (or current) mixed, unspecified 296.60 [facility] [address] [address]- 6829 Sep, [facility] [id number] [place] [address] 10965- 1240 Sep, Anxiety 300.00 ; Diabetes 250.00 and Hyperlipidemia 272.4 [facility] [address] [address]- 1828 Aug, [facility] [address] [address]- 3125 Aug, [facility] [address] [address]- 5683 Aug, [facility] [address] [address]- 5299 Aug, Bipolar I disorder, most recent episode (or current) mixed, unspecified 296.60 [facility] [address] [address]- 4639 Aug, Generalized anxiety disorder 300.02 and Bipolar II disorder 296.89 [facility] [id number] [address]- 5843 July, Bipolar I disorder, most recent episode (or current) mixed, unspecified 296.60 [facility] [address] [address]- 3220 July, Cough 786.2 [facility] [id number] 6251 July, Bipolar I disorder, most recent episode (or current) mixed, unspecified 296.60 [facility] [id number] [address] 30 Jun, 2014 Diabetes 250.00 [facility] [id number] [place] [address] 3487 14 Jun, 2014 [facility] [id number] [place] [address] 9737 Jun, [facility] [id number] [address] 44[address] May, [facility] [id number] [address] 37[address] May, [facility] [id number] [address] 2755 May, [facility] [id number] [address] 8633 May, [facility] [id number] [address] 6426 May, [facility] [id number] [address] 7397 May, [facility] [id number] [address] 8321 Apr, [facility] [id number] [address] 8[address] Apr, [facility] [id number] [address] Apr, [facility] [id number] [address] Apr, [facility] [place] [facility] [address] [id number] [place] [address]- 3105 Apr, [facility] [place] [facility] [address] [id number] [place] [address]- 2680 Apr, [facility] [place] [facility] [address] [id number] [place] [address]- 2633 Apr, [facility] [place] [facility] [address] [id number] [place] [address]- 7213 Apr, [facility] [place] [facility] [address] [id number] [place] [address]- 4144 Mar, [facility] [place] [facility] [address] [id number] [place] [address]- 9430 Mar, [facility] [place] [facility] [address] [id number] [place] [address]- 6768 Mar, [facility] [place] [facility] [address] [id number] [place] [address]- 1312 Mar, [facility] [place] [facility] [address] [id number] [place] [address]- 8736 Mar, [facility] [place] [facility] [address] [id number] [place] [address]- 4023 Mar, [facility] [place] [facility] [address] [id number] [place] [address]- 9519 Mar, [facility] [place] [facility] [address] [id number] [place] [address]- 7596 Mar, [facility] [place] [facility] [address] [id number] [place] [address]- 7164 Feb, [facility] [place] [facility] [address] [id number] [place] [address]- 8838 Feb, [facility] [place] [facility] [address] [id number] [place] [address]- 6391 Feb, [facility] [place] [facility] [address] [id number] [place] [address]- 7259 Feb, [facility] [place] [facility] [address] [id number] [place] [address]- 9763 Feb, [facility] [place] [facility] [address] [id number] [place] [address]- 6831 Feb, [facility] [place] [facility] [address] [id number] [place] [address]- 6957 Feb, [facility] [place] [facility] [address] [id number] [place] [address]- 8589 Feb, [facility] [place] [facility] [address] [id number] [place] [address]- 8591 Feb, [facility] [place] [facility] [address] [id number] [place] [address]- 8147 Feb, [facility] [place] [facility] [address] [id number] [place] [address]- 1009 Jan, [facility] [place] [facility] [address] [id number] [place] [address]- 3504 Jan, [facility] [place] [facility] [address] [id number] [place] [address]- 4236 Jan, [facility] [place] [facility] [address] [id number] [place] [address]- 3589 Jan, [facility] [place] [facility] [address] [id number] [place] [address]- 4836 Jan, [facility] [place] [facility] [address] [id number] [address]- 2905 Jan, [facility] [place] [facility] [address] [id number] [place] [address]- 3242 Jan, [facility] [place] [facility] [address] [id number] [place] [address]- 1898 Jan, [facility] [place] [facility] [address] [id number], [place] [address]- 6330 Jan, [facility] [place] [facility] [address] [id number] [place] [address]- 4750 Jan, [facility] [place] [facility] [address] [id number] [place] 4976 Jan, [facility] [place] [facility] [address] [id number] [place] 6309 Jan, [facility] [place] [facility] [address] [id number] [place] [address]- 7433 Jan, [facility] [place] [facility] [address] [id number] [place] 6995 Jan, [facility] [place] [facility] [address] [id number] [place] [address]- 9491 Jan, [facility] [place] [facility] [address] [id number] [place] [address]- 5985 Dec, [facility] [place] [facility] [address] [id number] [place] [address]- 8481 Dec, [facility] [place] [facility] [address] [id number] [place] [address]- 6699 Dec, [facility] [place] [facility] [address] [id number] [place] [address]- 3810 Dec, [facility] [place] [facility] [address] [id number] [place] [address]- 3772 Dec, [facility] [place] [facility] [address] [id number] [place] [address]- 1522 Dec, [facility] [place] [facility] [address] [id number] [place] 7538 Dec, [facility] [place] [facility] [address] [id number] [place] 4868 Dec, [facility] [place] [facility] [address] [id number] [place] [address]- 0645 Nov, [facility] [place] [facility] [address] [id number] [place] [address]- 9199 25 Sep, 2013 [facility] [place] [facility] [address] [id number] [place] [address] 2546 10 Sep, 2013 [facility] [place] [facility] [address] [id number] [place] [address]- 3736 10 Sep, 2013 [facility] [place] [facility] [address] [id number] [place] [address]- 5256 08 Sep, 2013 [facility] [place] [facility] [address] [id number] [place] [address]- 0428 08 Sep, 2013 [facility] [place] [facility] [address] [id number] [place] [address]- 8776 08 Sep, 2013 [facility] [place] [facility] [address] [id number] [place] [address]- 9618 08 Sep, 2013 [facility] [place] [facility] [address] [id number] [place] [address]- 0762 08 Sep, 2013 [facility] [place] [facility] [address] [id number] [place] [address]- 2877 08 Sep, 2013 [facility] [place] [facility] [address] [id number] [place] [address]- 0021 04 Sep, 2013 [facility] [place] [facility] [address] [id number] [place] [address]- 3203 04 Sep, 2013 [facility] [place] [facility] [address] [id number], [place] [address]- 4615 03 Sep, 2013 [facility] [place] [facility] [address] [id number], [place] [address]- 2547 02 Sep, 2013 [facility] [place] [facility] [address] [id number] [place] [address]- 2544 02 Nov, 2013 [facility] [place] [facility] [address] [id number] [place] [address]- 8325 Oct, [facility] [place] [facility] [address] [id number] [place] [address]- 5623 Oct, [facility] [place] [facility] [address] [id number] [place] [address]- 1012 Oct, [facility] [place] [facility] [address] [id number] [place] [address]- 2743 Oct, [facility] [place] [facility] [address] [id number] [place] [address]- 1860 Oct, [facility] [place] [facility] [address] [id number] [place] [address]- 4416 Oct, [facility] [place] [facility] [address] [id number] [place] [address]- 5687 Oct, [facility] [place] [facility] [address] [id number] [place] [address]- 8509 Oct, [facility] [place] [facility] [address] [id number] [place] [address]- 2400 Oct, [facility] [place] [facility] [address] [id number] [place] [address]- 9550 Oct, [facility] [place] [facility] [address] [id number] [place] [address]- 9057 Oct, [facility] [place] [facility] [address] [id number] [place] [address]- 9658 Oct, [facility] [place] [facility] [address] [id number] [place] [address]- 1513 Oct, [facility] [place] [facility] [address] [id number] [place] [address]- 5729 Oct, [facility] [place] [facility] [address] [id number] [place] [address]- 4204 Sep, [facility] [place] [facility] [address] [id number] [place] [address]- 8041 Sep, [facility] [place] [facility] [address] [id number] [place] [address]- 0083 Sep, [facility] [place] [facility] [address] [id number] [place] [address]- 2810 Sep, [facility] [place] [facility] [address] [id number] [place] [address]- 9138 Sep, 2013 [facility] [place] [facility] [address] [id number] [place] [address]- 0796 Sep, [facility] [place] [facility] [address] [id number] [place] [address]- 8482 Sep, [facility] [place] [facility] [address] [id number] [place] [address]- 7425 Sep, [facility] [place] [facility] [address] [id number] [place] [address]- 9850 Aug, [facility] [place] [facility] [address] [id number] [place] [address]- 4289 Aug, [facility] [place] [facility] [address] [id number] [place] [address]- 7203 Aug, [facility] [place] [facility] [address] [id number] [place] [address]- 5966 Aug, [facility] [place] [facility] [address] [id number] [place] [address]- 2425 Aug, [facility] [place] [facility] [address] [id number] [place] [address]- 6425 Aug, [facility] [place] [facility] [address] [id number] [place] [address]- 7317 Aug, [facility] [place] [facility] [address] [id number] [place] [address]- 5792 Aug, [facility] [place] [facility] [address] [id number] [place] [address]- 9196 July, [facility] [place] [facility] [address] [id number] [place] [address]- 0358 July, [facility] [place] [facility] [address] [id number] [place] [address]- 4758 July, [facility] [place] [facility] [address] [id number] [place] [address]- 9506 July, [facility] [place] [facility] [address] [id number] [place] [address]- 2450 July, [facility] [place] [facility] [address] [id number] [place] [address]- 2283 July, [facility] [place] [facility] [address] [id number] [place] [address]- 7725 July, [facility] [place] [facility] [address] [id number] [place] [address]- 1555 July, [facility] [place] [facility] [address] [id number] [place] [address]- 2858 Jun, [facility] [place] [facility] [address] [id number] [place] [address]- 7851 Jun, [facility] [place] [facility] [address] [id number] [place] [address]- 0833 Jun, [facility] [place] [facility] [address] [id number] [place] [address]- 2507 Jun, [facility] [place] [facility] [address] [id number] [place] [address]- 6062 Jun, [facility] [place] [facility] [address] [id number] [place] [address]- 6178 Jun, [facility] [place] [facility] [address] [id number] [place] [address]- 9484 Jun, [facility] [place] [facility] [address] [id number] [place] [address]- 9686 Jun, [facility] [place] [facility] [address] [id number] [place] [address]- 7464 Jun, [facility] [place] [facility] [address] [id number] [place] [address]- 1908 Jun, [facility] [place] [facility] [address] [id number] [place] [address]- 3916 Jun, [facility] [place] [facility] [address] [id number] [place] [address]- 9936 Jun, [facility] [address] [id number] [place] [address]- 2239 May, [facility] [place] [facility] [address] [id number] [place] [address]- 8066 May, [facility] [place] [facility] [address] [id number] [place] [address]- 1195 May, [facility] [place] [facility] [address] [id number] [place] [address]- 3353 May, [facility] [place] [facility] [address] [id number] [place] [address]- 4596 May, [facility] [place] [facility] [address] [id number] [place] [address]- 7188 May, [facility] [place] [facility] [address] [id number] [place] [address]- 0741 May, [facility] [place] [facility] [address] [id number] [place] [address]- 1516 May, [facility] [place] [facility] [address] [id number] [place] [address]- 6040 May, [facility] [place] [facility] [address] [id number] [place] [address]- 9522 May, [facility] [place] [facility] [address] [id number] [place] [address]- 1767 May, [facility] [place] [facility] [address] [id number] [place] [address]- 8169 May, [facility] [place] [facility] [address] [id number] [place] [address]- 6915 May, [facility] [place] [facility] [address] [id number] [place] [address]- 8796 May, [facility] [place] [facility] [address] [id number] [place] [address]- 0455 Apr, [facility] [place] [facility] [address] [id number] [place] [address]- 4162 Apr, [facility] [place] [facility] [address] [id number] [place] [address]- 8683 Apr, [facility] [place] [facility] [address] [id number] [place] 9055 Apr, [facility] [place] [facility] [address] [id number] [place] [address]- 2812 Apr, [facility] [place] [facility] [address] [id number] [place] [address]- 5793 Apr, [facility] [place] [facility] [address] [id number] [place] [address]- 5824 Mar, [facility] [place] [facility] [address] [id number] [place] [address]- 0950 Mar, [facility] [place] [facility] [address] [id number] [place] [address]- 2417 Mar, [facility] [place] [facility] [address] [id number] [place] [address]- 0462 Mar, [facility] [place] [facility] [address] [id number] [place] [address]- 2934 Mar, [facility] [place] [facility] [address] [id number] [place] [address]- 6600 Mar, [facility] [place] [facility] [address] [id number] [place] [address]- 4149 Mar, [facility] [place] [facility] [address] [id number] [place] [address]- 0268 Mar, [facility] [place] [facility] [address] [id number] [place] [address]- 5335 Mar, [facility] [place] [facility] [address] [id number] [place] [address]- 6650 Mar, [facility] [place] [facility] [address] [id number] [place] [address]- 3301 Mar, [facility] [address] [id number] [place] [address]- 1385 Mar, [facility] [address] [id number] [place] [address]- 7056 Mar, [facility] [address] [id number] [place] [address]- 0848 Mar, [facility] [address] [id number] [place] [address]- 4135 Feb, [facility] [address] [id number] [place] 3792 Feb, [facility] [address] [id number] [place] [address]- 4248 Feb, [facility] [address] [id number] [place] [address]- 6300 Feb, [facility] [address] [id number] [place] [address]- 1818 Feb, [facility] [address] [id number] [place] [address]- 1764 Feb, [facility] [address] [id number] [place] [address]- 5429 Feb, [facility] [address] [id number] [place] [address]- 3143 Feb, [facility] [address] [id number] [place] [address]- 9665 Feb, [facility] [address] [id number] [place] [address]- 1409 Feb, [facility] [address] [id number] [place] [address]- 7106 Feb, [facility] [address] [id number] [place] [address]- 6584 Feb, [facility] [place] [facility] [address] [id number] [place] [address]- 0829 05 Feb, 2012 [facility] [place] [facility] [address] [id number] [place] [address]- 2272 05 Feb, 2012 [facility] [place] [facility] [address] [id number] [place] [address]- 4758 05 Feb, 2012 [facility] [place] [facility] [address] [id number] [place] [address]- 2271 Feb, 2012 [facility] [place] [facility] [address] [id number] [place] [address]- 2200 24 Dec, 2012 [facility] [place] [facility] [address] [id number] [place] [address]- 8892 24 Dec, 2012 [facility] [place] [facility] [address] [id number] [place] [address]- 1158 16 Dec, 2012 [facility] [place] [facility] [address] [id number], [place] [address]- 5347 16 Dec, 2012 [facility] [place] [facility] [address] [id number], [place] [address]- 7273 16 Dec, 2012 [facility] [place] [facility] [address] [id number], [place] [address]- 2579 16 Dec, 2012 [facility] [place] [facility] [address] [id number], [place] [address]- 9890 14 Dec, 2012 [facility] [place] [facility] [address] [id number], [place] [address]- 9400 14 Dec, 2012 [facility] [place] [facility] [address] [id number], [place] [address]- 9383 10 Dec, 2012 [facility] [place] [facility] [address] [id number], [place] [address]- 3309 10 Dec, 2012 [facility] [place] [facility] [address] [id number], [place] [address]- 7618 10 Dec, 2012 [facility] [place] [facility] [address] [id number], [place] [address]- 6531 10 Dec, 2012 [facility] [address] [id number] [place] [address]- 7914 Dec, [facility] [place] [facility] [address] [id number] [place] [address]- 5123 25 Nov, 2012 [facility] [place] [facility] [address] [id number] [place] [address]- 4266 20 Nov, 2012 [facility] [place] [facility] [address] [id number] [place] [address]- 9824 18 Nov, 2012 [facility] [place] [facility] [address] [id number] [place] [address]- 4912 16 Nov, 2012 [facility] [place] [facility] [address] [id number] [place] [address]- 1778 12 Nov, 2012 [facility] [place] [facility] [address] [id number] [place] [address] 11 Nov, 2012 [facility] [place] [facility] [address] [id number] [place] [address] 05 Nov, 2012 [facility] [place] [facility] [address] [id number] [place] [address] Oct, [facility] [place] [facility] [address] [id number] [place] [address] Oct, [facility] [place] [facility] [address] [id number] [place] [address] Sep, [facility] [place] [facility] [address] [id number] [place] [address] Sep, [facility] [place] [facility] [address] [id number] [place] [address] Sep, [facility] [place] [facility] [address] [id number] [place] [address] Sep, [facility] [place] [facility] [address] [id number] [place] [address] 15 Sep, 2012 [facility] [place] [facility] [address] [id number] [place] [address] 09 Sep, 2012 [facility] [address] [id number] [place] [address] Sep, [facility] [place] [facility] [address] [id number] [place] [address] Aug, [facility] [place] [facility] [address] [id number] [place] [address] 96[address] Aug, [facility] [place] [facility] [address] [id number] [place] [address]- [address]32 16 Aug, 2012 [facility] [place] [facility] [address] [id number] [place] [address] Aug, [facility] [place] [facility] [address] [id number] [place] [address] Aug, [facility] [place] [facility] [address] [id number] [place] [address] 89[address] Aug, [facility] [address] [id number] [place] [address] Aug, [facility] [place] [facility] [address] [id number] [place] [address] Aug, [facility] [place] [facility] [address] [id number] [place] [address] July, [facility] [place] [facility] [address] [id number] [place] [address] July, [facility] [place] [facility] [address] [id number] [place] [address] July, [facility] [place] [facility] [address] [id number] [place] [id number] July, [facility] [place] [facility] [address] [id number] [place] [address] 86[address] July, [facility] [place] [facility] [address] [id number] [place] [address] Jun, [facility] [address] [id number] [place] [address]226 May, [facility] [place] [facility] [address] [id number] [place] [address] 4[address] May, [facility] [address] [id number] [place] [address] 8682 May, [facility] [place] [facility] [address] [id number] [place] [address] Apr, [facility] [address] [id number] [place] [address] 0767 Apr, [facility] [place] [facility] [address] [id number] [place] [address] 42[address] Apr, [facility] [address] [id number] [place] [address] 113[address] Mar, [facility] [place] [facility] [address] [id number] [place] [address] 4[address] Mar, [facility] [address] [id number] [place] [address] 76[address] Mar, [facility] [address] [id number] [place] [address] 70[address] Mar, [facility] [address] [id number] [place] [address] Mar, [facility] [place] [facility] [address] [id number] [place] [address] 2357 Mar, [facility] [place] [facility] [address] [id number] [place] [address] 39[address] Mar, [facility] [place] [facility] [address] [id number] [place] [address] Feb, [facility] [place] [facility] [address] [id number] [place] [address] 9481 Feb, [facility] [place] [facility] [address] [id number] [place] [address] 18 Feb, 2012 [facility] [place] [facility] [address] [id number] [place] [address] 18 Feb, 2012 [facility] [place] [facility] [address] [id number] [place] [address]- 5216 Feb, [facility] [place] [facility] [address] [id number] [place] [address]- 101[address] Feb, [facility] [place] [facility] [address] [id number] [place] [address] Feb, [facility] [place] [facility] [address] [id number] [place] [address] Feb, [facility] [place] [facility] [address] [id number] [place] [address]- 4[address] Jan, [facility] [place] [facility] [address] [id number] [place] [address] 97[address] Jan, [facility] [place] [facility] [address] [id number] [place] [address]- 1576 Jan, [facility] [place] [facility] [address] [id number] [place] [address]- 0200 Jan, [facility] [place] [facility] [address] [facility] [id number] [place] [address]- 2714 Jan, [facility] [place] [facility] [address] [id number] [place] [address]- 8174 Jan, [facility] [place] [facility] [address] [id number] [place] [address]- 2832 Jan, [facility] [place] [facility] [address] [id number] [place] [address]- 6946 Jan, [facility] [place] [facility] [address] [facility] [id number] [place] [address]- [address]121 Jan, [facility] [place] [facility] [address] [id number], [place] [address] Jan, [facility] [place] [facility] [address] [id number] [place] [address]- 0875 Jan, [facility] [place] [facility] [address] [id number] [place] [address]- 6348 Jan, [facility] [place] [facility] [address] [id number] [place] [address] Jan, [facility] [place] [facility] [address] [id number] [place] [address]- 57[address] Jan, [facility] [place] [facility] [address] [id number] [place] [address]- 8499 Jan, [facility] [place] [facility] [address] [id number] [place] [address]- [address] Jan, [facility] [place] [facility] [address] [id number] [place] [address]- 9510 Dec, [facility] [place] [facility] [address] [id number] [place] [address]- 9086 Dec, [facility] [place] [facility] [address] [id number] [place] [address]- 3452 Dec, [facility] [place] [facility] [address] [id number] [place] [address]- 8885 Dec, [facility] [place] [facility] [address] [facility] [id number] [place] [address]- 8302 Dec, [facility] [place] [facility] [address] [id number], [place] [address] Dec, [facility] [place] [facility] [address] [id number] [place] [address]- 6946 Dec, [facility] [place] [facility] [address] [id number] [place] [address]- 8509 Dec, [facility] [place] [facility] [address] [id number] [place] [address]- [address] Dec, [facility] [place] [facility] [address] [id number] [place] [address] 05 Dec, 2011 [facility] [place] [facility] [address] [id number] [place] [address] 18 Nov, 2011 [facility] [place] [facility] [address] [id number] [place] [address] 13 Nov, 2011 [facility] [place] [facility] [address] [id number] [place] [address] 1470 24 Oct, 2011 [facility] [place] [facility] [address] [id number] [place] [address] Oct, [facility] [place] [facility] [address] [id number] [place] [address] Oct, [facility] [place] [facility] [address] [id number] [place] [address] 16 Oct, 2011 [facility] [place] [facility] [address] [id number] [place] [address] Oct, [facility] [place] [facility] [address] [id number] [place] [address] Oct, [facility] [place] [facility] [address] [id number] [place] [address] Oct, [facility] [place] [facility] [address] [id number] [place] [address] Sep, [facility] [place] [facility] [address] [id number] [place] [address] Aug, [facility] [place] [facility] [address] [id number] [place] [address] Aug, [facility] [place] [facility] [address] [id number] [place] [address] Aug, [facility] [place] [facility] [address] [id number] [place] [address] Aug, [facility] [place] [facility] [address] [id number] [place] [address] 2767 Aug, [facility] [place] [facility] [address] [id number] [place] [address] July, [facility] [address] [id number] [place] [address] July, [facility] [address] [id number] [place] [address] 2546 July, [facility] [address] [id number] [place] [address] Jun, [facility] [address] [id number] [place] [address] Jun, [facility] [address] [id number] [place] [address] Jun, [facility] [address] [id number] [place] [address] 9985 Jun, [facility] [address] [id number] [place] [address] 1533 30 May, 2011 [facility] [address] [id number] [place] [address] 1359 30 May, 2011 [facility] [address] [id number] [place] [address] 7625 29 May, 2011 [facility] [address] [id number] [place] [address] 9912 28 May, 2011 [facility] [address] [id number] [place] [address] 8832 May, [facility] [address] [id number] [place] [address]- 4706 22 May, 2011 [facility] [place] [facility] [address] [id number] [place] [address] 3995 21 May, 2011 [facility] [address] [id number] [place] [address]- 4476 19 May, 2011 [facility] [address] [id number] [place] [address] 9[address] May, [facility] [place] [facility] [address] [id number] [place] [address]- 3982 05 May, 2011 [facility] [place] [facility] [address] [id number] [place] [address] 4746 May, [facility] [place] [facility] [address] [id number] [place] [address] 1246 May, [facility] [place] [facility] [address] [id number] [place] [address] 5704 Mar, [facility] [place] [facility] [address] [id number] [place] [address] 49[address] Mar, [facility] [place] [facility] [address] [id number] [place] [address] 1597 Feb, [facility] [place] [facility] [address] [id number] [place] [address] 5345 Feb, [facility] [place] [facility] [address] [id number] [place] [address] 5518 Feb, [facility] [place] [facility] [address] [id number] [place] [address] 8818 15 Feb, 2011 [facility] [place] [facility] [address] [id number] [place] [address] Feb, [facility] [place] [facility] [address] [id number] [place] [address]- 1718 Feb, [facility] [place] [facility] [address] [id number], [place] [address] Feb, [facility] [place] [facility] [address] [id number] [place] [address] 1269 Jan, [facility] [place] [facility] [address] [id number] [place] [address] 0696 Jan, [facility] [place] [facility] [address] [id number] [place] [address]- 9938 Jan, [facility] [place] [facility] [address] [id number], [place] [address] 17 Jan, 2011 [facility] [place] [facility] [address] [id number] [place] [address]- 4437 Jan, [facility] [place] [facility] [address] [id number] [place] [address] 8672 Jan, [facility] [place] [facility] [address] [id number] [place] [address]- 8722 Dec, [facility] [place] [facility] [address] [id number] [place] [address] 2758 Dec, [facility] [place] [facility] [address] [id number] [place] [address], [place] [address]- 5815 Dec, [facility] [place] [facility] [address] [id number] [place] [address] 4164 July, [facility] [address] [facility] [id number] [place] [address], [place] [address] July, [facility] [place] [facility] [address] [id number] [place] [address] 4300 Feb, [facility] [place] [facility] [address] [facility] [id number] [place] [address] 46[address] Jan, [facility] [place] [facility] [address] [facility] [id number] [place] [address] 2695 Dec, [facility] [place] [facility] [address] [id number], [place] [address] 8367 Dec, [facility] [place] [facility] [address] [id number], [place] [address] Sep, [facility] [place] [facility] [address] [id number] [place] [address]- 8985 Aug, [facility] [place] [facility] [address] [facility] [id number] [place] [address]- 6311 Jun, [facility] [place] [facility] [address] [facility] [id number], [place] [address] Jun, [facility] [place] [facility] [id number] [address] Jan, [facility] [id number] [address] Jan, [facility] [id number] [address] Jan, [facility] [id number] [address] Jan, [facility] [id number] [address] 6480 Dec, [facility] [id number] [place] [address] 6186 Dec, [facility] [id number] [address] 65[address] Dec, [facility] [id number] [address] Nov, [facility] [id number] [address] July, [facility] [id number] [address]- [address]82 May, [facility] [id number] [address] 99[address] Apr, [facility] [id number] [address] Feb, [facility] [address] [id number] [address] Dec, IMMUNIZATIONS No Known Immunizations SOCIAL HISTORY Never Assessed REASON FOR VISIT f/u PLAN OF CARE Activity Details Follow Up 2 sessions, 2 weeks apart, 1/2 hour. Reason: VITAL SIGNS MEDICATIONS Unknown Medications RESULTS No Results PROCEDURES Procedure Date Ordered Result Body Site Psychotherapy, patient &/family, 30 minutes, established patient October 14, 2016 INSTRUCTIONS MEDICATIONS ADMINISTERED No Known Medications [...]
--- OUTSIDE RECORDS SUMMARY | 2017-09-01 18:48 | XMS REPORT ---
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 Active 883724617 Problem Bipolar 1 disorder F31.9 Active 916195725 Problem Hyperlipidemia, unspecified E78.5 Active 74849612 Problem Type 2 diabetes mellitus with complication E11.8 Active 035993144 Problem Post laminectomy syndrome M96.1 Active 36377736 Problem Eye exam normal Z01.00 Active 796410163 Problem Bipolar disorder, in partial remission, most recent episode manic F31.73 Active 97514639 Problem Extreme poverty Z59.5 Active 37613783 Problem Obesity, unspecified 278.00 Active 012871916 Problem 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 and Extreme poverty Z59.5 [place] [id number] [place] [address] 58617- 6556 Jun, Bipolar 1 disorder F31.9 ; 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 and Extreme poverty Z59.5 [place] [id number] [place] [address] 34292- 3550 May, Urinary tract infection without hematuria, site unspecified N39.0 [place] [id number] [place] [address] 06862- 2664 May, Bipolar 1 disorder F31.9 ; 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 and Extreme poverty Z59.5 [place] [id number] [place] [address] 06055- 7249 Apr, Diabetes E11.9 and Breast cancer screening Z12.31 [place] [id number] [place] [address] 370302- 9973 20 Apr, 2017 Bipolar 1 disorder F31.9 and 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 [place] [id number] [place] [address] 54549- 5517 Mar, Bipolar 1 disorder F31.9 ; 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 and Extreme poverty Z59.5 [place] [id number] [place] [address] 33556- 9786 Mar, New daily persistent headache G44.52 ; Leg pain 729.5 and History of carpal tunnel release Z98.890 [place] [address] [place] [address] 67927- 5911 Mar, Hyperlipidemia, unspecified E78.5 [place] [id number] [place] [address] 51005- 8973 Mar, Bipolar 1 disorder F31.9 ; 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 and Extreme poverty Z59.5 [place] [id number] [place] [address] 36052- 0433 Feb, Bipolar 1 disorder F31.9 ; 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 and Extreme poverty Z59.5 [place] [id number] [place] [address] 63110- 3138 Feb, Diabetes E11.9 [place] [address] 682325- 6727 Feb, Viral syndrome B34.9 [place] [address] 25143- 2638 Jan, Other viral agents as the cause of diseases classified elsewhere B97.89 and Acute upper respiratory infection, unspecified J06.9 [place] [id number] [place] [address] 60439- 3608 Jan, Bipolar 1 disorder F31.9 and 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 [place] [id number] [place] [address] 42897- 1823 Jan, Bipolar 1 disorder F31.9 ; 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 and Extreme poverty Z59.5 [place] [id number] [place] [address] 35559- 6072 Dec, Diabetes E11.9 [place] [address] 39841- 5542 Dec, Diabetes E11.9 and Encounter for immunization Z23 [place] [address] [id number] [place] [address] 84072- 1482 Dec, Bipolar 1 disorder F31.9 ; 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 and Extreme poverty Z59.5 [place] [id number] [place] [address] 50769- 5648 Dec, Back pain M54.9 [place] [address] 65757- 9984 Nov, [place] [id number] [place] [address] 00609- 7338 Nov, Bipolar 1 disorder F31.9 ; 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 and Extreme poverty Z59.5 [place] [id number] [place] [address] 50516- 0606 Nov, Bipolar 1 disorder F31.9 ; 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 and Extreme poverty Z59.5 [place] [id number] [place] [address] 63074- 5468 Oct, 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 and Bipolar 1 disorder F31.9 [place] [id number] [place] [address] 93995- 3582 Oct, Bipolar 1 disorder F31.9 ; 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 and Extreme poverty Z59.5 [place] [id number] [place] [address] 37530- 4050 Oct, Back pain M54.9 [place] [id number] [place] [address] 41001- 6412 Oct, 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 and Type 2 diabetes mellitus with complication E11.8 [place] [id number] [place] [address] 51886- 8163 Sep, Bipolar 1 disorder F31.9 ; 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 and Extreme poverty Z59.5 [place] [address] [place] [address] 70446- 6789 Sep, 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 and Bipolar 1 disorder F31.9 [place] [id number] [place] [address] 48623- 8076 Sep, Bipolar 1 disorder F31.9 ; 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 and Extreme poverty Z59.5 [place] [id number] [place] [address] 37419- 2479 Aug, Diabetes E11.9 ; Hyperlipidemia, unspecified E78.5 and Lumbar radiculopathy M54.16 [facility] [place] [address] [address] 1555 Aug, Bipolar 1 disorder F31.9 ; 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 and Extreme poverty Z59.5 [facility] [place] [address] [address] 6038 Aug, [facility] [place] [id number] [place] [address] 50782- 6263 Aug, [facility] [place] [id number] [place] [address] 97477- 1860 Aug, [place] [address] [id number] [place] [address] 23451- 8426 July, [place] [id number] [place] [address] 21584- 5871 July, Acute bilateral low back pain with right-sided sciatica M54.41 [place] [address] [id number] [place] [address] 22595- 6448 July, Bipolar 1 disorder F31.9 ; 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 and Extreme poverty Z59.5 [place] [id number] [place] [address] 20288- 3781 July, Back pain M54.9 and Diabetes E11.9 [place] [id number] [place] [address] 27095- 7659 Jun, Bipolar 1 disorder F31.9 ; 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 and Extreme poverty Z59.5 [place] [id number] [place] [address] 90894- 4381 Jun, Bipolar 1 disorder F31.9 ; 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 and Extreme poverty Z59.5 [place] [id number] [place] [address] 59023- 5208 May, Visit for pelvic exam Z01.419 ; Acute vaginitis N76.0 and Diabetes E11.9 [place] [id number] [place] [address] 08823- 4140 May, Bipolar 1 disorder F31.9 ; 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 and Extreme poverty Z59.5 [place] [id number] [place] [address] 25731- 6615 May, [place] [address] 85483- 5817 May, [place] [address] 02945- 4071 May, Bipolar 1 disorder F31.9 ; 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 and Extreme poverty Z59.5 [place] [address] [id number] [place] [address] 63713- 8659 May, Hyperlipidemia, unspecified E78.[address] 68809- 4104 Apr, Breast cancer screening Z12.39 [place] [address] 11264- 2066 Mar, [place] [address] 56291- 6374 Mar, Bipolar disorder, current episode mixed, unspecified F31.60 [place] [address] 64802- 6034 Mar, Bipolar 1 disorder F31.9 ; 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 and Extreme poverty Z59.5 [place] [address] [address] [id number] [place] [address] 07574- 8865 Feb, Acute nasopharyngitis J00 [place] [address] 48398- 8683 Feb, Dental examination Z01.20 [place] [id number] [place] [address] 63212- 3774 Feb, Dental cavities K02.9 and Chronic periodontitis, unspecified K05.30 [place] [id number] [place] [address] 25304- 2029 13 Feb, 2016 Low back pain M54.5 and Extreme poverty Z59.5 [place] [address] [id number] [place] [address] 24150- 2837 08 Feb, 2016 [place] [address] 39729- 1258 05 Feb, 2016 Routine gynecological examination V72.31 ; Breast cancer screening Z12.39 and Herpes simplex type 1 infection B00.9 [place] [address] 91960- 2988 02 Feb, 2016 Diabetes E11.9 [place] [address] 96624- 2928 Feb, Encounter for dental examination and cleaning without abnormal findings Z01.20 [place] [address] [place] [id number] [place] [address] 77067- 8287 22 Jan, 2016 Hyperlipidemia, unspecified E78.5 [place] [address] 92158- 5326 22 Jan, 2016 Bipolar 1 disorder F31.9 ; 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 and Extreme poverty Z59.5 [place] [address] [id number] [place] [address] 98433- 1639 18 Jan, 2016 Diabetes E11.9 [place] [id number] [place] [address] 72654- 8642 17 Jan, 2016 Diabetes E11.9 [place] [address] [id number] [place] [address] 14613- 1890 14 Dec, 2015 Bipolar 1 disorder F31.9 ; 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 and Extreme poverty Z59.5 [place] [address] [id number] [place] [address] 67735- 2572 13 Dec, 2015 Bipolar disorder, current episode mixed, unspecified F31.60 and 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 [facility] [place] [id number] [place] [address] 41307- 4098 Nov, Bipolar 1 disorder F31.9 ; 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 ; Extreme poverty Z59.5 and Non compliance with medical treatment Z91.19 [facility] [place] [id number] [place] [address] 25914- 2873 Oct, [facility] [place] [id number] [place] [address] 21417- 7994 Oct, Dental caries K02.9 [facility] [place] [id number] [place] [address] 96492- 0567 Oct, Low back pain M54.5 and Other chronic pain G89.29 [place] [address] [id number] [place] [address] 68990- 6906 Oct, Bipolar 1 disorder F31.9 ; 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 ; Extreme poverty Z59.5 and Non compliance with medical treatment Z91.19 [facility] [place] [id number] [place] [address] 33323- 4459 Oct, [facility] [place] [id number] [place] [address] 79228- 2615 Oct, [facility] [place] [id number] [place] [address] 24980- 7426 Oct, Dental examination Z01.20 [facility] [place] [id number] [place] [address] 51280- 3624 Oct, Bipolar 1 disorder F31.9 ; 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 ; Extreme poverty Z59.5 and Non compliance with medical treatment Z91.19 [facility] [place] [id number] [place] [address] 45798- 5839 Oct, [facility] [place] [id number] [place] [address] 12194- 5308 Sep, Type 2 diabetes mellitus with complication E11.8 [place] [address] [place] [address]- [address] Sep, Bipolar disorder, current episode mixed, unspecified F31.60 [place] [address] [id number] [place] [address] 21210- 2030 Sep, Bipolar disorder, current episode mixed, unspecified F31.60 [place] [id number] [place] [address] 35603- 0524 Sep, Bipolar disorder, in partial remission, most recent episode manic F31.73 ; 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 ; Extreme poverty Z59.5 and Non compliance with medical treatment Z91.19 [place] [id number] [place] [address] 14835- 4389 Aug, Bipolar disorder, in partial remission, most recent episode manic F31.73 ; 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 ; Extreme poverty Z59.5 and Non compliance with medical treatment Z91.19 [place] [id number] [place] [address] 82842- 8578 Aug, Bipolar disorder, in partial remission, most recent episode manic F31.73 ; 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 ; Extreme poverty Z59.5 and Non compliance with medical treatment Z91.19 [place] [id number] [place] [address] 12020- 5848 Aug, [place] [id number] [place] [address] 44120- 4051 July, Bipolar disorder, in partial remission, most recent episode manic F31.73 ; 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 ; Extreme poverty Z59.5 and Non compliance with medical treatment Z91.19 [place] [id number] [place] [address] 81057- 6475 July, Bipolar disorder, current episode mixed, unspecified F31.60 [place] [id number] [place] [address] 13061- 1080 July, Bipolar disorder, in partial remission, most recent episode manic F31.73 ; 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 ; Extreme poverty Z59.5 and Non compliance with medical treatment Z91.19 [facility] [place] [id number] [place] [address] 12642- 2588 July, [facility] current 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 Z79.891 and Chronic pain G89.29 [facility] [place] [id number] [place] [address] 07754- 1349 Jun, [facility] current 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 Z79.891 and Bipolar 1 disorder F31.9 [facility] [place] [id number] [place] [address] 02425- 5218 Jun, [place] [id number] [place] [address] 62315- 9868 Jun, [place] [id number] [place] [address] 61815- 7298 Jun, [place] [id number] [place] [address] 91372- 6843 Jun, Bipolar disorder, in partial remission, most recent episode manic F31.73 ; 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 and Non compliance with medical treatment Z91.19 [place] [address] [place] [address] 23774- 5470 29 May, 2015 Bipolar disorder, in partial remission, most recent episode manic F31.73 ; 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 and Non compliance with medical treatment Z91.19 [place] [id number] [place] [address] 24566- 4604 May, Bipolar disorder, in partial remission, most recent episode manic F31.73 [place] [id number] [place] [address] 05926- 3653 May, Diabetes E11.9 and Chronic pain G89.29 [facility] [place] [id number] [place] [address] 67879- 9393 14 May, 2015 [place] [id number] [place] [address] 38015- 8002 May, Bipolar disorder, in partial remission, most recent episode manic F31.73 ; Non compliance with medical treatment Z91.19 and 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 [place] [id number] [place] [address] 61998- 8598 May, Type 2 diabetes mellitus with complication E11.8 and Back pain M54.9 [place] [address] 54560- 6229 May, Bipolar disorder, in partial remission, most recent episode manic F31.73 and 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 [place] [address] 67936- 8153 Apr, [place] [address] 82774- 8454 Apr, [place] [address] 41096- 1314 Apr, [place] [address] 31551- 5224 Apr, Diabetes E11.9 ; Irritable bowel syndrome with diarrhea K58.0 and Lumbar radiculopathy M54.16 [place] [id number] [place] [address] 58516- 0986 Apr, Breast screening Z12.39 [place] [id number] [place] [address] 75700- 1499 Apr, Bipolar disorder, in partial remission, most recent episode manic F31.73 ; Non compliance with medical treatment Z91.19 and 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 [place] [address] 26073- 4688 Mar, Edema, unspecified type R60.9 and Type 2 diabetes mellitus with complication E11.8 [place] [id number] [place] [address] 60892- 5953 Mar, Bipolar disorder, in partial remission, most recent episode manic F31.73 ; Non compliance with medical treatment Z91.19 ; 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 and Extreme poverty Z59.5 [place] [id number] [place] [address] 14 Mar, 2015 Bipolar disorder, current episode mixed, unspecified F31.60 ; 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 ; Extreme poverty Z59.5 and Generalized anxiety disorder F41.1 [place] [id number] [place] [address] 09611- 8533 12 Mar, 2015 Bipolar disorder, in partial remission, most recent episode manic F31.73 ; 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 and Extreme poverty Z59.5 [place] [id number] [place] [address] 80952- 8448 Feb, Bipolar disorder, in partial remission, most recent episode manic F31.73 ; 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 and Extreme poverty Z59.5 [place] [address] 47451- 1501 Feb, Bipolar disorder, in partial remission, most recent episode manic F31.73 ; 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 and Extreme poverty Z59.5 [place] [id number] [place] [address] 98021- 5418 Feb, [place] [id number] [place] [address] 18269- 7479 Jan, Type 2 diabetes mellitus with complication E11.8 and Petechiae R23.3 [place] [id number] [place] [address] 67067- 7954 Jan, Type 2 diabetes mellitus with complication E11.8 ; Edema, unspecified R60.9 ; Petechiae R23.3 and Diabetes E11.9 [place] [id number] [place] [address] 23088- 1174 Jan, Bipolar disorder, in partial remission, most recent episode manic F31.73 ; 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 and Extreme poverty Z59.5 [place] [id number] [place] [address] 41368- 1429 Jan, Bipolar disorder, in partial remission, most recent episode manic F31.73 ; 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 and Extreme poverty Z59.5 [place] [id number] [place] [address] 33541- 5570 Dec, Bipolar disorder, in partial remission, most recent episode manic F31.73 [place] [address] 26277- 4865 Dec, Edema, due to unspecified malnutrition type, unspecified edema R60.9 and Essential hypertension I10 [address] 65442- 0916 Dec, Bipolar disorder, in partial remission, most recent episode manic F31.73 [place] [address] 46831- 7420 Nov, Bipolar I disorder, most recent episode (or current) mixed, unspecified 296.60 [place] [id number] [place] [address] 38203- 3190 Nov, Stress incontinence, female 625.6 ; Back pain 724.5 and Leg pain 729.5 [place] [id number] [place] [address] 99031- 1249 Nov, Generalized anxiety disorder 300.02 and Bipolar II disorder 296.89 [place] [id number] [place] [address] 77915- 6888 Nov, Bipolar I disorder, most recent episode (or current) mixed, unspecified 296.60 [place] [address] 68397- 6173 Oct, [place] [id number] [place] [address] 57261- 0902 Oct, [place] [address] 95622- 2846 Oct, [facility] [place] [id number] [address]- 6139 Oct, Bipolar I disorder, most recent episode (or current) mixed, unspecified 296.60 [facility] [place] [address] 7755 Sep, Diabetes 250.00 [facility] [place] [address] [address]- 2154 Sep, Bipolar I disorder, most recent episode (or current) mixed, unspecified 296.60 [facility] [place] [address] [address]- 9337 Sep, [facility] [place] [address] 9129 Sep, [facility] [place] [address] [address]- 8102 Sep, Bipolar I disorder, most recent episode (or current) mixed, unspecified 296.60 [facility] [place] [address] [address]- 2962 Sep, Bipolar I disorder, most recent episode (or current) mixed, unspecified 296.60 [facility] [place] [address] 6212 Sep, [facility] [place] [address] [address] Sep, Anxiety 300.00 ; Diabetes 250.00 and Hyperlipidemia 272.4 [facility], [place] [id number] [address] Aug, [facility], [place] [id number] [address] Aug, [facility], [place] [id number] [address] Aug, [facility], [place] [id number] [address] Aug, Bipolar I disorder, most recent episode (or current) mixed, unspecified 296.60 [facility] [place] [id number] [address] [address] Aug, Generalized anxiety disorder 300.02 and Bipolar II disorder 296.89 [facility] [place] [id number] [address] [address] July, Bipolar I disorder, most recent episode (or current) mixed, unspecified 296.60 [facility] [place] [id number] [address] July, Cough 786.2 [facility] [place] [id number] [place] [address]- 5383 July, Bipolar I disorder, most recent episode (or current) mixed, unspecified 296.60 [facility] [place] [id number] [place] [address]- 6202 Jun, Diabetes 250.00 [facility] [place] [id number] [address] 9705 14 Jun, 2014 [facility] [place] [id number] [place] [address]- 5516 Jun, [facility] [place] [id number] [address] 8381 May, [facility] [place] [id number] [address] 8492 May, [facility] [place] [id number] [address] 4530 May, [facility], [place] [id number] [address] May, [facility] [place] [id number] [address] May, [facility] [place] [id number] [address] May, [facility] [place] [facility] [address] [id number] [place] [address]- 8170 Apr, [facility] [place] [facility] [address] [id number] [place] [address]- 8316 Apr, [facility] [place] [facility] [address] [id number] [place] [address]- 3776 Apr, 2014 [facility] [place] [facility] [address] [id number] [place] [address] 2546 Apr, [facility] [place] [facility] [address] [id number] [place] [address]- 2548 Apr, [facility] [place] [facility] [address] [id number] [place] [address]- 7172 Apr, [facility] [place] [facility] [address] [id number] [place] [address]- 5780 Apr, [facility] [place] [facility] [address] [id number] [place] [address]- 3669 Apr, [facility] [place] [facility] [address] [id number] [place] [address]- 5436 Mar, [facility] [place] [facility] [address] [id number] [place] [address]- 9107 Mar, [facility] [place] [facility] [address] [id number] [place] [address]- 5957 Mar, [facility] [place] [facility] [address] [id number] [place] [address]- 9983 Mar, [facility] [place] [facility] [address] [id number] [place] [address]- 7166 Mar, [facility] [place] [facility] [address] [id number] [place] [address]- 3262 Mar, [facility] [place] [facility] [address] [id number] [place] [address]- 2354 Mar, [facility] [place] [facility] [address] [id number] [place] [address]- 1952 13 Mar, 2014 [facility] [place] [facility] [address] [id number] [place] [address]- 3924 Feb, [facility] [place] [facility] [address] [id number] [place] [address]- 5731 Feb, [facility] [place] [facility] [address] [id number] [place] [address]- 5238 Feb, [facility] [place] [facility] [address] [id number] [place] [address]- 1536 Feb, [facility] [place] [facility] [address] [id number] [place] [address]- 2799 Feb, [facility] [place] [facility] [address] [id number] [place] [address]- 6264 Feb, [facility] [place] [facility] [address] [id number] [place] [address]- 9101 Feb, [facility] [place] [facility] [address] [id number] [place] [address]- 1483 Feb, [facility] [place] [facility] [address] [id number] [place] [address]- 7902 Feb, [facility] [place] [facility] [address] [id number] [place] [address]- 8755 Feb, [facility] [place] [facility] [address] [id number] [place] [address]- 1504 Jan, [facility] [place] [facility] [address] [id number] [place] [address]- 5799 Jan, [facility] [place] [facility] [address] [id number] [place] [address]- 9124 Jan, [facility] [place] [facility] [address] [id number] [place] [address]- 3439 Jan, [facility] [place] [facility] [address] [id number] [place] [address]- 2408 Jan, [facility] [place] [facility] [address] [id number] [place] [address]- 5144 Jan, [facility] [place] [facility] [address] [id number] [place] [address]- 6819 Jan, [facility] [place] [facility] [address] [id number] [place] [address]- 8400 Jan, [facility] [place] [facility] [address] [id number] [place] [address]- 2233 Jan, [facility] [place] [facility] [address] [id number] [place] [address]- 0604 Jan, [facility] [place] [facility] [address] [id number] [place] [address]- 7827 Jan, [facility] [place] [facility] [address] [id number] [place] [address]- 5100 Jan, [facility] [place] [facility] [address] [id number] [place] [address]- 7307 Jan, [facility] [place] [facility] [address] [id number] [place] [address]- 7959 Jan, [facility] [place] [facility] [address] [id number] [place] [address]- 3222 Jan, [facility] [place] [facility] [address] [id number] [place] [address]- 3931 Dec, [facility] [place] [facility] [address] [id number] [place] [address]- 1125 Dec, [facility] [place] [facility] [address] [id number] [place] [address]- 4959 Dec, [facility] [place] [facility] [address] [id number] [place] [address]- 2052 Dec, [facility] [place] [facility] [address] [id number] [place] [address]- 3563 Dec, [facility] [place] [facility] [address] [id number] [place] [address]- 0088 09 Dec, 2013 [facility] [place] [facility] [address] [id number] [place] [address]- 4580 07 Dec, 2013 [facility] [place] [facility] [address] [id number] [place] [address]- 0528 07 Dec, 2013 [facility] [place] [facility] [address] [id number] [place] [address]- 1420 25 Sep, 2013 [facility] [place] [facility] [address] [id number] [place] [address]- 3036 25 Sep, 2013 [facility] [place] [facility] [address] [id number] [place] [address]- 3413 10 Sep, 2013 [facility] [place] [facility] [address] [id number] [place] [address]- 2437 10 Nov, 2013 [facility] [place] [facility] [address] [id number] [place] [address]- 5277 08 Nov, 2013 [facility] [place] [facility] [address] [id number] [place] [address]- 2803 08 Sep, 2013 [facility] [place] [facility] [address] [id number] [place] [address]- 6149 08 Sep, 2013 [facility] [place] [facility] [address] [id number] [place] [address]- 0143 08 Sep, 2013 [facility] [place] [facility] [address] [id number] [place] [address]- 9559 08 Sep, 2013 [facility] [place] [facility] [address] [id number] [place] [address]- 8087 08 Sep, 2013 [facility] [place] [facility] [address] [id number] [place] [address]- 9268 04 Sep, 2013 [facility] [place] [facility] [address] [id number] [place] [address]- 7102 04 Sep, 2013 [facility] [place] [facility] [address] [id number] [place] [address]- 7406 03 Sep, 2013 [facility] [place] [facility] [address] [id number] [place] [address]- 6597 Nov, [facility] [place] [facility] [address] [id number] [place] [address]- 8679 Nov, [facility] [place] [facility] [address] [id number] [place] [address]- 8731 Oct, [facility] [place] [facility] [address] [id number] [place] [address]- 3094 Oct, [facility] [place] [facility] [address] [id number] [place] [address]- 1078 Oct, [facility] [place] [facility] [address] [id number] [place] [address]- 8470 Oct, [facility] [place] [facility] [address] [id number] [place] [address]- 7499 Oct, [facility] [place] [facility] [address] [id number] [place] [address]- 1305 Oct, [facility] [place] [facility] [address] [id number] [place] [address]- 2900 Oct, [facility] [place] [facility] [address] [id number] [place] [address]- 0358 Oct, [facility] [place] [facility] [address] [id number] [place] [address]- 2932 Oct, [facility] [place] [facility] [address] [id number] [place] [address]- 1187 Oct, [facility] [place] [facility] [address] [id number] [place] [address]- 8578 Oct, [facility] [place] [facility] [address] [id number] [place] [address]- 9235 Oct, [facility] [place] [facility] [address] [id number] [place] [address]- 8035 Oct, [facility] [place] [facility] [address] [id number] [place] [address]- 8730 Oct, [facility] [place] [facility] [address] [id number] [place] [address]- 3493 Sep, [facility] [place] [facility] [address] [id number] [place] [address]- 1749 Sep, [facility] [place] [facility] [address] [id number] [place] [address]- 7843 Sep, [facility] [place] [facility] [address] [id number] [place] [address]- 0332 Sep, [facility] [place] [facility] [address] [id number] [place] [address]- 8870 Sep, [facility] [place] [facility] [address] [id number] [place] [address]- 4076 Sep, [facility] [place] [facility] [address] [id number] [place] [address]- 5312 Sep, [facility] [place] [facility] [address] [id number] [place] [address]- 8694 Sep, [facility] [place] [facility] [address] [id number] [place] [address]- 0574 Aug, [facility] [place] [facility] [address] [id number] [place] [address]- 1334 Aug, [facility] [place] [facility] [address] [id number] [place] [address]- 6713 Aug, [facility] [place] [facility] [address] [id number] [place] [address]- 8150 Aug, [facility] [place] [facility] [address] [id number] [place] [address]- 1405 Aug, [facility] [place] [facility] [address] [id number] [place] [address]- 3012 Aug, [facility] [place] [facility] [address] [id number] [place] [address]- 8850 Aug, [facility] [place] [facility] [address] [id number] [place] [address]- 2852 Aug, [facility] [address] [id number] [place] [address]- 8035 July, [facility] [place] [facility] [address] [id number] [place] [address]- 3395 July, [facility] [place] [facility] [address] [id number] [place] [address]- 8724 July, [facility] [place] [facility] [address] [id number] [place] [address]- 5992 July, [facility] [place] [facility] [address] [id number] [place] [address]- 2642 July, [facility] [place] [facility] [address] [id number] [place] [address]- 9970 July, [facility] [place] [facility] [address] [id number] [place] [address]- 6175 July, [facility] [place] [facility] [address] [id number] [place] [address]- 2469 July, [facility] [place] [facility] [address] [id number] [place] [address]- 9814 Jun, [facility] [place] [facility] [address] [id number] [place] [address]- 2201 Jun, [facility] [place] [facility] [address] [id number] [place] [address]- 6096 Jun, [facility] [place] [facility] [address] [id number] [place] [address]- 8550 Jun, [facility] [place] [facility] [address] [id number] [place] [address]- 5049 Jun, [facility] [place] [facility] [address] [id number] [place] [address]- 3271 Jun, [facility] [place] [facility] [address] [id number] [place] [address]- 8805 Jun, [facility] [place] [facility] [address] [id number] [place] [address]- 6257 15 Jun, 2013 [facility] [place] [facility] [address] [id number] [place] [address]- 7870 Jun, [facility] [place] [facility] [address] [id number] [place] [address]- 7146 Jun, [facility] [place] [facility] [address] [id number] [place] [address]- 8193 Jun, [facility] [place] [facility] [address] [id number] [place] [address]- 1325 Jun, [facility] [place] [facility] [address] [id number] [place] [address]- 4554 May, [facility] [place] [facility] [address] [id number] [place] [address]- 5461 May, [facility] [place] [facility] [address] [id number] [place] [address]- 6906 May, [facility] [place] [facility] [address] [id number] [place] [address]- 4089 May, [facility] [place] [facility] [address] [id number] [place] [address]- 1459 May, [facility] [place] [facility] [address] [id number] [place] [address]- 7363 May, [facility] [place] [facility] [address] [id number] [place] [address]- 4387 May, [facility] [place] [facility] [address] [id number] [place] [address]- 2223 May, [facility] [place] [facility] [address] [id number] [place] [address]- 3487 May, [facility] [place] [facility] [address] [id number] [place] 2543 May, [facility] [place] [facility] [address] [id number] [place] [address]- 1984 May, [facility] [place] [facility] [address] [id number] [place] [address]- 6070 May, [facility] [place] [facility] [address] [id number] [place] [address]- 5996 May, [facility] [place] [facility] [address] [id number] [place] [address]- 7198 May, [facility] [place] [facility] [address] [id number] [place] [address]- 3403 Apr, [facility] [place] [facility] [address] [id number] [place] [address]- 6012 Apr, [facility] [place] [facility] [address] [id number] [place] [address]- 2209 Apr, [facility] [place] [facility] [address] [id number] [place] [address]- 0177 Apr, [facility] [place] [facility] [address] [id number] [place] [address]- 9752 Apr, [facility] [place] [facility] [address] [id number] [place] [address]- 5092 Apr, [facility] [place] [facility] [address] [id number] [place] [address]- 6650 Mar, [facility] [place] [facility] [address] [id number] [place] [address]- 8358 Mar, [facility] [place] [facility] [address] [id number] [place] [address]- 9800 Mar, [facility] [place] [facility] [address] [id number] [place] [address]- 9924 Mar, [facility] [place] [facility] [address] [id number] [place] [address]- 8517 Mar, [facility] [place] [facility] [address] [id number] [place] [address]- 2059 Mar, [facility] [place] [facility] [address] [id number] [place] [address]- 4105 Mar, [facility] [address] [id number] [place] [address]- 9342 Mar, [facility] [address] [id number] [place] [address]- 0036 Mar, [facility] [address] [id number] [place] [address]- 2821 Mar, [facility] [address] [id number] [place] [address]- 5600 Mar, [facility] [address] [id number] [place] [address]- 9250 Mar, [facility] [address] [id number] [place] [address]- 9364 Mar, [facility] [address] [id number] [place] [address]- 0692 Mar, [facility] [address] [id number] [place] [address]- 9480 Feb, [facility] [address] [id number] [place] [address]- 8976 Feb, [facility] [address] [id number] [place] [address]- 3220 Feb, [facility] [address] [id number] [place] [address]- 7320 Feb, [facility] [address] [id number] [place] [address]- 2547 Feb, [facility] [place] [facility] [address] [id number] [place] [address]- 8116 Feb, [facility] [address] [id number] [place] [address]- 1655 Feb, [facility] [address] [id number] [place] [address]- 4094 Feb, [facility] [place] [facility] [address] [id number] [place] [address]- 2592 Feb, 2012 [facility] [place] [facility] [address] [id number] [place] 8611 Feb, 2012 [facility] [place] [facility] [address] [id number] [place] [address]- 8781 Feb, 2012 [facility] [place] [facility] [address] [id number] [place] [address]- 7063 Feb, 2012 [facility] [place] [facility] [address] [id number] [place] 5007 Feb, [facility] [place] [facility] [address] [id number] [place] [address]- 0939 Feb, [facility] [place] [facility] [address] [id number] [place] [address]- 1890 Feb, [facility] [place] [facility] [address] [id number] [place] [address]- 9404 Feb, [facility] [place] [facility] [address] [id number] [place] [address]- 8127 24 Dec, 2012 [facility] [place] [facility] [address] [id number] [place] [address]- 3703 24 Dec, 2012 [facility] [place] [facility] [address] [id number] [place] [address]- 6439 16 Dec, 2012 [facility] [place] [facility] [address] [id number] [place] [address]- 5371 16 Dec, 2012 [facility] [place] [facility] [address] [id number] [place] [address]- 2509 16 Dec, 2012 [facility] [place] [facility] [address] [id number] [place] [address]- 7514 16 Dec, 2012 [facility] [place] [facility] [address] [id number] [place] [address]- 2189 14 Dec, 2012 [facility] [place] [facility] [address] [id number] [place] [address]- 7585 14 Dec, 2012 [facility] [place] [facility] [address] [id number] [place] [address]- 1621 10 Dec, 2012 [facility] [place] [facility] [address] [id number] [place] [address]- 7267 10 Dec, 2012 [facility] [place] [facility] [address] [id number] [place] [address]- 6335 10 Dec, 2012 [facility] [place] [facility] [address] [id number] [place] [address]- 6467 10 Dec, 2012 [facility] [place] [facility] [address] [id number] [place] [address]- 9870 03 Dec, 2012 [facility] [place] [facility] [address] [id number] [place] [address]- 0927 25 Nov, 2012 [facility] [place] [facility] [address] [id number] [place] [address]- 4617 20 Nov, 2012 [facility] [place] [facility] [address] [id number] [place] [address]- 7048 18 Nov, 2012 [facility] [place] [facility] [address] [id number] [place] [address]- 8109 16 Nov, 2012 [facility] [place] [facility] [address] [id number] [place] [address]- 4232 12 Nov, 2012 [facility] [place] [facility] [address] [id number] [place] [address] 11 Nov, 2012 [facility] [place] [facility] [address] [id number] [place] [address] 05 Nov, 2012 [facility] [place] [facility] [address] [id number] [place] [address] 15 Oct, 2012 [facility] [place] [facility] [address] [id number] [place] [address] Oct, [facility] [place] [facility] [address] [id number] [place] [address] 24 Sep, 2012 [facility] [place] [facility] [address] [id number] [place] [address] 23 Sep, 2012 [facility] [place] [facility] [address] [id number] [place] [address] 18 Sep, 2012 [facility] [place] [facility] [address] [id number] [place] [address] 17 Sep, 2012 [facility] [place] [facility] [address] [id number] [place] [address] 15 Sep, 2012 [facility] [place] [facility] [address] [id number] [place] [address]47 09 Sep, 2012 [facility] [place] [facility] [address] [id number] [place] [address] Sep, [facility] [place] [facility] [address] [id number] [place] [address] Aug, [facility] [place] [facility] [address] [id number] [place] [address] Aug, [facility] [place] [facility] [address] [id number] [place] [address] 16 Aug, 2012 [facility] [place] [facility] [address] [id number] [place] [address] Aug, [facility] [place] [facility] [address] [id number] [place] [address] 1731 Aug, [facility] [place] [facility] [address] [id number] [place] [address] Aug, [facility] [place] [facility] [address] [id number] [place] [address] Aug, [facility] [place] [facility] [address] [id number] [place] [address]27 Aug, [facility] [place] [facility] [address] [id number] [place] [address] July, [facility] [place] [facility] [address] [id number] [place] [address] July, [facility] [address] [id number] [place] [address] July, [facility] [address] [id number] [place] [id number] July, [facility] [address] [id number] [place] [address] July, [facility] [address] [id number] [place] [address]158 Jun, [facility] [address] [id number] [place] [address] May, [facility] [address] [id number] [place] [address] 4[address] May, [facility] [address] [id number] [place] [address] 3846 May, [facility] [address] [id number] [place] [address] Apr, [facility] [address] [id number] [place] [address] Apr, [facility] [address] [id number] [place] [address]236 Apr, [facility] [address] [id number] [place] [address] 1576 Mar, [facility] [address] [id number] [place] [address] Mar, [facility] [address] [id number] [place] [address] 0934 Mar, [facility] [address] [id number] [place] [address] 1666 Mar, [facility] [address] [id number] [place] [address] Mar, [facility] [address] [id number] [place] [address] Mar, [facility] [address] [id number] [place] [address] 73[address] Mar, [facility] [address] [id number] [place] [address] Feb, [facility] [address] [id number] [place] [address] 9967 Feb, [facility] [address] [id number] [place] [address] 9198 Feb, [facility] [address] [id number] [place] [address] Feb, [facility] [address] [id number] [place] [address] Feb, [facility] [address] [id number] [place] [address] 1009 Feb, [facility] [address] [id number] [place] [address] 2430 Feb, [facility] [address] [id number] [place] [address] 4112 Feb, [facility] [address] [id number] [place] [address] 8491 Jan, [facility] [address] [id number] [place] [address] 2578 Jan, [facility] [address] [id number] [place] [address] 5753 Jan, [facility] [place] [facility] [address] [id number] [place] [address] 64[address] Jan, [facility] [address] [id number] [place] [address] 2711 Jan, [facility] [address] [id number] [place] [address]379 Jan, [facility] [place] [facility] [address] [id number] [place] [address] Jan, [facility] [place] [facility] [address] [id number] [place] [address] 1801 Jan, [facility] [place] [facility] [address] [id number] [place] [address] 4779 Jan, [facility] [place] [facility] [address] [id number] [place] [address] 1528 Jan, [facility] [place] [facility] [address] [id number] [place] [address] 1236 Jan, [facility] [place] [facility] [address] [id number] [place] [address] 9861 Jan, [facility] [place] [facility] [address] [facility] [id number] [place] [address] 6099 Jan, [facility] [place] [facility] [address] [id number] [place] [address] 8493 Jan, [facility] [place] [facility] [address] [id number] [place] [address] 4446 Jan, [facility] [place] [facility] [address] [id number] [place] [address] 1517 Jan, [facility] [place] [facility] [address] [facility] [id number] [place] [address] Dec, [facility] [place] [facility] [address] [id number] [place] [address] 2539 Dec, [facility] [place] [facility] [address] [id number] [place] [address] 9161 Dec, [facility] [place] [facility] [address] [id number] [place] [address]- 3166 Dec, [facility] [place] [facility] [address] [facility] [id number] [place] [address] 7973 Dec, [facility] [place] [facility] [address] [id number] [place] [address]- 2225 Dec, [facility] [place] [facility] [address] [id number] [place] [address]- 5143 Dec, [facility] [place] [facility] [address] [id number] [place] [id number] Dec, [facility] [place] [facility] [address] [id number] [place] [address] 08 Dec, 2011 [facility] [place] [facility] [address] [id number] [place] [address] 05 Dec, 2011 [facility] [place] [facility] [address] [id number] [place] [address] 18 Nov, 2011 [facility] [place] [facility] [address] [id number] [place] [address] 13 Nov, 2011 [facility] [place] [facility] [address] [id number] [place] [address] 24 Oct, 2011 [facility] [place] [facility] [address] [id number] [place] [address] Oct, [facility] [place] [facility] [address] [id number] [place] [address] Oct, [facility] [place] [facility] [address] [id number] [place] [address]27 16 Oct, 2011 [facility] [place] [facility] [address] [id number] [place] [address] Oct, [facility] [place] [facility] [address] [id number] [place] [address] Oct, [facility] [place] [facility] [address] [id number] [place] [address] Oct, [facility] [place] [facility] [address] [id number] [place] [address] Sep, [facility] [place] [facility] [address] [id number] [place] [address] Aug, [facility] [place] [facility] [address] [id number] [place] [address] 18 Aug, 2011 [facility] [place] [facility] [address] [id number] [place] [address] Aug, [facility] [place] [facility] [address] [id number] [place] [address] Aug, [facility] [place] [facility] [address] [id number] [place] [address] Aug, [facility] [place] [facility] [address] [id number] [place] [address] July, [facility] [place] [facility] [address] [id number] [place] [address] July, [facility] [place] [facility] [address] [id number] [place] [address] July, [facility] [place] [facility] [address] [id number] [place] [address] Jun, [facility] [address] [id number] [place] [address] Jun, [facility] [place] [facility] [address] [id number] [place] [address] Jun, [facility] [place] [facility] [address] [id number] [place] [address] Jun, [facility] [place] [facility] [address] [id number] [place] [address] May, [facility] [place] [facility] [address] [id number] [place] [address] 30 May, 2011 [facility] [place] [facility] [address] [id number] [place] [address] 29 May, 2011 [facility] [place] [facility] [address] [id number] [place] [address] 240[address] May, [facility] [place] [facility] [address] [id number] [place] [address] May, [facility] [address] [id number] [place] [address]15 22 May, 2011 [facility] [place] [facility] [address] [id number] [place] [address] 3914 May, [facility] [place] [facility] [address] [id number] [place] [address]68 19 May, 2011 [facility] [place] [facility] [address] [id number] [place] [address]75 08 May, 2011 [facility] [place] [facility] [address] [id number] [place] [address]- 7693 05 May, 2011 [facility] [place] [facility] [address] [id number] [place] [address] 86[address] May, [facility] [place] [facility] [address] [id number] [place] [address] 94[address] May, [facility] [place] [facility] [address] [id number] [place] [address] Mar, [facility] [place] [facility] [address] [id number] [place] [address] Mar, [facility] [place] [facility] [address] [id number] [place] [address] 28 Feb, 2011 [facility] [place] [facility] [address] [id number] [place] [address] Feb, [facility] [place] [facility] [address] [id number] [place] [address]99 20 Feb, 2011 [facility] [place] [facility] [address] [id number] [place] [address] 4113 15 Feb, 2011 [facility] [place] [facility] [address] [id number] [place] [address] 8[address] 13 Feb, 2011 [facility] [place] [facility] [address] [id number] [place] [address] 4684 13 Feb, 2011 [facility] [place] [facility] [address] [id number] [place] [address] 2750 13 Feb, 2011 [facility] [place] [facility] [address] [id number] [place] [address] 28 Jan, 2011 [facility] [place] [facility] [address] [id number] [place] [address] Jan, [facility] [place] [facility] [address] [id number] [place] [address] 79[address] Jan, [facility] [place] [facility] [address] [id number] [place] [address] 17 Jan, 2011 [facility] [place] [facility] [address] [id number] [place] [address] 63[address] Jan, [facility] [place] [facility] [address] [id number] [place] [address] 98[address] Jan, [facility] [place] [facility] [address] [id number] [place] [address] 30[address] Dec, [facility] [place] [facility] [address] [id number] [place] [address] 4780 Dec, [facility] [place] [facility] [address] [id number] [place] [address] Dec, [facility] [place] [facility] [address] [id number] [place] [address] July, [facility] [place] [facility] [address] [id number] [place] [address] July, [facility] [place] [facility] [address] [id number] [place] [address] 3463 08 Feb, 2010 [facility] [place] [facility] [address] [id number] [place] [address] 3714 18 Jan, 2010 [facility] [place] [facility] [address] [id number] [place] [address] 2428 Dec, [facility] [place] [facility] [address] [id number] [place] [address] Dec, [facility] [place] [facility] [address] [id number] [place] [address]- 0[address] 15 Sep, 2009 [facility] [place] [facility] [address] [id number] [place] [address] 7959 Aug, [facility] [place] [facility] [address] [id number] [place] [address] 299[address] Jun, [facility] [place] [facility] [address] [id number] [place] [address]- 6184 Jun, [facility] [place] [facility] [address] [id number] [place] [address]- 1420 Jan, [facility] [place] [facility] [address] [id number] [place] [address]- 6085 Jan, [facility] [place] [facility] [address] [facility] [id number] [place] [address] Jan, [facility] [place] [facility] [address] [id number] [place] [address]- 5567 Jan, [facility] [place] [facility] [address] [id number] [place] [address] 4847 Dec, [facility] [place] [facility] [address] [id number] [place] [address] 8855 Dec, [facility] [place] [facility] [address] [facility] [id number] [place] [address]- 8800 Dec, [facility] [place] [facility] [address] [id number] [place] [address]87 Nov, [facility] [place] [facility] [address] [id number] [place] [address]- [address] July, [facility] [place] [facility] [address] [id number] [place] [address]- 5661 May, [facility] [place] [facility] [address] [id number] [place] [address] 1634 Apr, [facility] [place] [facility] [address] [id number] [place] [address] Feb, [facility] [place] [address] [facility] [id number] [place] [address] Dec, IMMUNIZATIONS No Known Immunizations SOCIAL HISTORY Never Assessed REASON FOR VISIT f/u PLAN OF CARE Activity Details Follow Up 2 sessions, 2 weeks apart, 1/2 hour. Reason: VITAL SIGNS MEDICATIONS Unknown Medications RESULTS No Results PROCEDURES Procedure Date Ordered Result Body Site Psychotherapy, patient &/family, 30 minutes, established patient Dec 01, 2016 INSTRUCTIONS MEDICATIONS ADMINISTERED No Known Medications [...]
--- OUTSIDE RECORDS SUMMARY | 2017-09-01 18:51 | XMS REPORT ---
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 Active 305846603 Problem Bipolar 1 disorder F31.9 Active 853781681 Problem Hyperlipidemia, unspecified E78.5 Active 81224977 Problem Type 2 diabetes mellitus with complication E11.8 Active 247502080 Problem Post laminectomy syndrome M96.1 Active 14363735 Problem Eye exam normal Z01.00 Active 898639585 Problem Bipolar disorder, in partial remission, most recent episode manic F31.73 Active 19437157 Problem Extreme poverty Z59.5 Active 72768229 Problem Obesity, unspecified 278.00 Active 589596958 Problem 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 Active 70110946 Problem Hyperlipidemia 272.4 Active 50927203 Problem Non compliance with medical treatment Z91.19 Active 0851703 ALLERGIES No Information ENCOUNTERS Encounter Location Date Diagnosis [facility] [address], [place] [address] Aug, [facility] [address], [place] [address] 0[address] Jun, [facility] [address], [place] [address] Jun, [facility] [id number] [place] [address] 94590- 3755 May, Urinary tract infection without hematuria, site unspecified N39.0 [facility] [address] [id number] [place] [address] 54502- 4622 May, Bipolar 1 disorder F31.9 ; 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 and Extreme poverty Z59.5 [facility] [address] [id number] [place] [address] 88576- 2658 28 Apr, 2017 Diabetes E11.9 and Breast cancer screening Z12.31 [facility] [id number] [place] [address] 67685- 9559 Apr, Bipolar 1 disorder F31.9 and 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 [facility] [address] [id number] [place] [address] 17510- 9306 Mar, Bipolar 1 disorder F31.9 ; 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 and Extreme poverty Z59.5 [facility] [id number] [place] [address] 67365- 5010 Mar, New daily persistent headache G44.52 ; Leg pain 729.5 and History of carpal tunnel release Z98.890 [facility] [id number] [place] [address] 01459- 1477 Mar, Hyperlipidemia, unspecified E78.5 [facility] [id number] [place] [address] 85263- 0704 Mar, Bipolar 1 disorder F31.9 ; 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 and Extreme poverty Z59.5 [facility] [id number] [place] [address] 21730- 8673 Feb, Bipolar 1 disorder F31.9 ; 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 and Extreme poverty Z59.5 [facility] [id number] [place] [address] 71152- 7680 Feb, Diabetes E11.9 [facility] [id number] [place] [address] 2546 Feb, Viral syndrome B34.9 [facility] [id number] [place] [address] 34840- 3441 Jan, Other viral agents as the cause of diseases classified elsewhere B97.89 and Acute upper respiratory infection, unspecified J06.9 [facility] [id number] [place] [address] 02506- 4108 Jan, Bipolar 1 disorder F31.9 and 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 [facility] [id number] [place] [address] 63299- 9209 Jan, Bipolar 1 disorder F31.9 ; 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 and Extreme poverty Z59.5 [facility] [id number] [place] [address] 04192- 8882 Dec, Diabetes E11.9 [facility] [id number] [place] [address] 70634- 7597 Dec, Diabetes E11.9 and Encounter for immunization Z23 [facility] [id number] [place] [address] 38008- 4335 Dec, Bipolar 1 disorder F31.9 ; 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 and Extreme poverty Z59.5 [facility] [id number] [place] [address] 20149- 4932 Dec, Back pain M54.9 [facility] [id number] [place] [address] 83494- 5408 Nov, [facility] [id number] [place] [address] 19513- 1057 Nov, Bipolar 1 disorder F31.9 ; 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 and Extreme poverty Z59.5 [facility] [id number] [place] [address] 48177- 9026 05 Nov, 2016 Bipolar 1 disorder F31.9 ; 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 and Extreme poverty Z59.5 [facility] [id number] [address]- 8117 17 Oct, 2016 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 and Bipolar 1 disorder F31.9 [facility] [id number] [place] [address] 13813- 9069 Oct, Bipolar 1 disorder F31.9 ; 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 and Extreme poverty Z59.5 [facility] [id number] [place] [address] 86631- 4092 Oct, Back pain M54.9 [facility] [id number] [place] [address] 18673- 9271 Oct, 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 and Type 2 diabetes mellitus with complication E11.8 [facility] [address] [place] [address] 48691- 5550 Sep, Bipolar 1 disorder F31.9 ; 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 and Extreme poverty Z59.5 [facility] [address] [place] [address] 07171- 5206 Sep, 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 and Bipolar 1 disorder F31.9 [facility] [id number] [place] [address] 64109- 1023 Sep, Bipolar 1 disorder F31.9 ; 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 and Extreme poverty Z59.5 [facility] [address] [place] [address] 81014- 8276 Aug, Diabetes E11.9 ; Hyperlipidemia, unspecified E78.5 and Lumbar radiculopathy M54.16 [facility] [address] [place] [address] 52835- 3047 15 Aug, 2016 Bipolar 1 disorder F31.9 ; 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 and Extreme poverty Z59.5 [facility] [id number] [place] [address] 84423- 4632 Aug, [facility] [id number] [place] [address] 54048- 6469 Aug, [facility] [address], [place] [address] 8721 Aug, [facility] [id number] [place] [address] 24584- 5268 July, [facility] [id number] [place] [address] 33576- 1546 July, Acute bilateral low back pain with right-sided sciatica M54.41 [facility] [id number] [place] [address] 06334- 1239 July, Bipolar 1 disorder F31.9 ; 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 and Extreme poverty Z59.5 [facility] [id number] [place] [address] 76891- 0390 July, Back pain M54.9 and Diabetes E11.9 [facility] [id number] [place] [address] 56163- 8194 Jun, Bipolar 1 disorder F31.9 ; 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 and Extreme poverty Z59.5 [facility] [id number] [place] [address] 55226- 5914 Jun, Bipolar 1 disorder F31.9 ; 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 and Extreme poverty Z59.5 [facility] [address] [place] [address] 87935- 2922 May, Visit for pelvic exam Z01.419 ; Acute vaginitis N76.0 and Diabetes E11.9 [facility] [address], [place] [address] 8387 May, Bipolar 1 disorder F31.9 ; 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 and Extreme poverty Z59.5 [facility] [id number] [place] [address] 95161- 7045 May, [facility] [id number] [place] [address] 56247- 2819 May, [facility] [id number] [place] [address] 41277- 0590 May, Bipolar 1 disorder F31.9 ; 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 and Extreme poverty Z59.5 [facility] [id number] [place] [address] 38844- 5598 May, Hyperlipidemia, unspecified E78.5 [facility] [address] 18860- 3715 13 Apr, 2016 Breast cancer screening Z12.39 [facility] [facility] [address] 51197- 5764 Mar, [facility] [address] 87715- 4754 Mar, Bipolar disorder, current episode mixed, unspecified F31.60 [facility] [address] 24090- 3074 Mar, Bipolar 1 disorder F31.9 ; 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 and Extreme poverty Z59.5 [facility] [address] 15448- 0668 Feb, Acute nasopharyngitis J00 [facility] [id number] [place] [address] 86006- 4073 Feb, Dental examination Z01.20 [facility] [address] 55009- 5558 Feb, Dental cavities K02.9 and Chronic periodontitis, unspecified K05.30 [facility] [id number] [place] [address] 61538- 6168 Feb, Low back pain M54.5 and Extreme poverty Z59.5 [facility] [address] 32845- 2581 Feb, [facility] [address] 49411- 8992 Feb, Routine gynecological examination V72.31 ; Breast cancer screening Z12.39 and Herpes simplex type 1 infection B00.9 [facility] [id number] [place] [address] 38564- 9639 Feb, Diabetes E11.9 [facility] [id number] [place] [address] 7796 Feb, Encounter for dental examination and cleaning without abnormal findings Z01.20 [facility] [address] 19660- 4555 Jan, Hyperlipidemia, unspecified E78.5 [facility] [id number] [place] [address] 13364- 0732 Jan, Bipolar 1 disorder F31.9 ; 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 and Extreme poverty Z59.5 [facility] [id number] [place] [address] 03166- 1746 18 Jan, 2016 Diabetes E11.9 [facility] [id number] [place] [address] 12194- 2107 17 Jan, 2016 Diabetes E11.9 [facility] [id number] [place] [address] 90156- 2346 14 Dec, 2015 Bipolar 1 disorder F31.9 ; 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 and Extreme poverty Z59.5 [facility] [id number] [place] [address] 10837- 4387 13 Dec, 2015 Bipolar disorder, current episode mixed, unspecified F31.60 and 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 [facility] [id number] [place] [address] 87714- 1107 16 Nov, 2015 Bipolar 1 disorder F31.9 ; 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 ; Extreme poverty Z59.5 and Non compliance with medical treatment Z91.19 [facility] [id number] [place] [address] 93053- 0323 Oct, [facility] [id number] [place] [address] 98313- 0670 Oct, Dental caries K02.9 [facility] [facility] [id number] [place] [address] 76066- 9114 Oct, Low back pain M54.5 and Other chronic pain G89.29 [facility] [id number] [place] [address] 18326- 8175 Oct, Bipolar 1 disorder F31.9 ; 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 ; Extreme poverty Z59.5 and Non compliance with medical treatment Z91.19 [facility] [id number] [place] [address] 75231- 8778 Oct, [facility] [address] 61677- 7967 Oct, [facility] [id number] [place] [address] 91163- 2340 Oct, Dental examination Z01.20 [facility] [id number] [place] [address] 37983- 7543 Oct, Bipolar 1 disorder F31.9 ; 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 ; Extreme poverty Z59.5 and Non compliance with medical treatment Z91.19 [facility] [id number] [place] [address] 22798- 5619 Oct, [facility] [id number] [place] [address] 11064- 2194 Sep, Type 2 diabetes mellitus with complication E11.8 [facility] [id number] [place] [address] 05598- 5481 Sep, Bipolar disorder, current episode mixed, unspecified F31.60 [facility] [id number] [place] [address] 54546- 6327 Sep, Bipolar disorder, current episode mixed, unspecified F31.60 [facility] [id number] [place] [address] 20914- 5210 Sep, Bipolar disorder, in partial remission, most recent episode manic F31.73 ; 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 ; Extreme poverty Z59.5 and Non compliance with medical treatment Z91.19 [facility] [address] [place] [address] 64879- 4511 Aug, Bipolar disorder, in partial remission, most recent episode manic F31.73 ; 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 ; Extreme poverty Z59.5 and Non compliance with medical treatment Z91.19 [facility] [id number] [place] [address] 28995- 0825 Aug, Bipolar disorder, in partial remission, most recent episode manic F31.73 ; 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 ; Extreme poverty Z59.5 and Non compliance with medical treatment Z91.19 [facility] [id number] [place] [address] 66252- 9742 Aug, [facility] [address] [place] [address] 50373- 8284 July, Bipolar disorder, in partial remission, most recent episode manic F31.73 ; 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 ; Extreme poverty Z59.5 and Non compliance with medical treatment Z91.19 [facility] [address] [place] [address] 48409- 0160 July, Bipolar disorder, current episode mixed, unspecified F31.60 [facility] [address] [place] [address] 56935- 0487 July, Bipolar disorder, in partial remission, most recent episode manic F31.73 ; 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 ; Extreme poverty Z59.5 and Non compliance with medical treatment Z91.19 [facility] [address] [place] [address] 35058- 2778 July, [facility] current 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 Z79.891 and Chronic pain G89.29 [facility] [address] [place] [address] 47829- 1650 Jun, 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 and Bipolar 1 disorder F31.9 [facility] [address], [place] [address]- 0186 Jun, [facility] [address], [place] [address]- 5295 Jun, [facility] [id number] [place] [address] 53103- 7106 Jun, [facility] [address] [place] [address] 21436- 1421 Jun, Bipolar disorder, in partial remission, most recent episode manic F31.73 ; 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 and Non compliance with medical treatment Z91.19 [facility] [address] [place] [address] 67396- 8825 May, Bipolar disorder, in partial remission, most recent episode manic F31.73 ; 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 and Non compliance with medical treatment Z91.19 [facility] [id number] [place] [address] 32455- 3780 May, Bipolar disorder, in partial remission, most recent episode manic F31.73 [facility] [address] [place] [address] 56721- 4862 May, Diabetes E11.9 and Chronic pain G89.29 [facility] [address], [place] [address]- 4995 May, [facility] [address] [place] [address] 07621- 5873 May, Bipolar disorder, in partial remission, most recent episode manic F31.73 ; Non compliance with medical treatment Z91.19 and 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 [facility] [address] [place] [address] 28343- 4538 May, Type 2 diabetes mellitus with complication E11.8 and Back pain M54.9 [facility] [address], [place] [address]- 7531 May, Bipolar disorder, in partial remission, most recent episode manic F31.73 and 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 [facility] [id number] [place] [address] 33702- 7716 Apr, [facility] [address] [place] [address]- 5688 Apr, [facility] [address] 51521- 4100 Apr, [facility] [place] [address] [place] [address]659[address]- 8418 Apr, Diabetes E11.9 ; Irritable bowel syndrome with diarrhea K58.0 and Lumbar radiculopathy M54.16 [facility] [address] 00329- 7573 Apr, Breast screening Z12.[address] 90308- 1993 Apr, Bipolar disorder, in partial remission, most recent episode manic F31.73 ; Non compliance with medical treatment Z91.19 and 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 [facility] [address] 45847- 5967 Mar, Edema, unspecified type R60.9 and Type 2 diabetes mellitus with complication E11.8 [place] [id number] [place] [address] 99367- 6901 Mar, Bipolar disorder, in partial remission, most recent episode manic F31.73 ; Non compliance with medical treatment Z91.19 ; 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 and Extreme poverty Z59.5 [facility] [id number] [place] [address] 31346- 0307 Mar, Bipolar disorder, current episode mixed, unspecified F31.60 ; 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 ; Extreme poverty Z59.5 and Generalized anxiety disorder F41.[address] 74868- 7004 Mar, Bipolar disorder, in partial remission, most recent episode manic F31.73 ; 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 and Extreme poverty Z59.5 [facility] [id number] [place] [address] 83553- 7035 Feb, Bipolar disorder, in partial remission, most recent episode manic F31.73 ; 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 and Extreme poverty Z59.5 [facility] [id number] [place] [address] 80753- 4498 Feb, Bipolar disorder, in partial remission, most recent episode manic F31.73 ; 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 and Extreme poverty Z59.5 [facility] [id number] [place] [address] 89577- 5266 Feb, [facility] [id number] [place] [address] 85439- 4202 Jan, Type 2 diabetes mellitus with complication E11.8 and Petechiae R23.3 [facility] [id number] [place] [address] 27434- 0359 Jan, Type 2 diabetes mellitus with complication E11.8 ; Edema, unspecified R60.9 ; Petechiae R23.3 and Diabetes E11.9 [facility] [address] [place] [address] 25275- 8228 Jan, Bipolar disorder, in partial remission, most recent episode manic F31.73 ; 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 and Extreme poverty Z59.5 [facility] [address] [place] [address] 03831- 8216 Jan, Bipolar disorder, in partial remission, most recent episode manic F31.73 ; 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 and Extreme poverty Z59.5 [facility] [address] [place] [address] 99114- 1717 Dec, Bipolar disorder, in partial remission, most recent episode manic F31.73 [facility] [id number] [place] [address] 01685- 3193 Dec, Edema, due to unspecified malnutrition type, unspecified edema R60.9 and Essential hypertension I10 [facility] [address] 48129- 4150 Dec, Bipolar disorder, in partial remission, most recent episode manic F31.73 [facility] [address] 34580- 2238 Nov, Bipolar I disorder, most recent episode (or current) mixed, unspecified 296.60 [facility] [address] 48920- 0879 Nov, Stress incontinence, female 625.6 ; Back pain 724.5 and Leg pain 729.5 [facility] [id number] [place] [address] 31277- 4697 Nov, Generalized anxiety disorder 300.02 and Bipolar II disorder 296.89 [facility] [address] 92362- 7941 Nov, Bipolar I disorder, most recent episode (or current) mixed, unspecified 296.60 [facility] [address] 79912- 0207 Oct, [facility] [id number] [place] [address] 16521- 5937 Oct, [facility] [id number] [place] [address] 34040- 1876 Oct, [facility] [id number] [place] [address] 48013- 2736 Oct, Bipolar I disorder, most recent episode (or current) mixed, unspecified 296.60 [facility] [id number] [place] [address] 78473- 1726 Sep, Diabetes 250.00 [facility] [id number] [place] [address] 50882- 9296 Sep, Bipolar I disorder, most recent episode (or current) mixed, unspecified 296.60 [facility] [id number] [address]- 8434 Sep, [facility] [address] [place] [address]- 3992 Sep, [facility] [address] [place] [address]- 9165 Sep, Bipolar I disorder, most recent episode (or current) mixed, unspecified 296.60 [facility] [address] [place] [address]- 2654 Sep, Bipolar I disorder, most recent episode (or current) mixed, unspecified 296.60 [facility] [address], [place] [address]- 2734 Sep, [facility] [id number] [place] [address] 35272- 3569 Sep, Anxiety 300.00 ; Diabetes 250.00 and Hyperlipidemia 272.4 [facility] [address], [place] [address]- 0461 Aug, [facility] [address], [place] [address]- 8989 Aug, [facility] [address], [place] [address]- 3326 Aug, [facility] [address], [place] [address]- 5095 Aug, Bipolar I disorder, most recent episode (or current) mixed, unspecified 296.60 [facility] [address], [place] [address]- 9793 Aug, Generalized anxiety disorder 300.02 and Bipolar II disorder 296.89 [facility] [id number] [address]- 2987 July, Bipolar I disorder, most recent episode (or current) mixed, unspecified 296.60 [facility] [address], [place] [address]- 1353 July, Cough 786.2 [facility] [id number] 4858 July, Bipolar I disorder, most recent episode (or current) mixed, unspecified 296.60 [facility] [address], [place] [address]- 7[address] 30 Jun, 2014 Diabetes 250.00 [facility] [id number] [place] [address] 14 Jun, 2014 [facility] [id number] [place] [address] Jun, [facility] [id number], [place] [address] May, [facility] [id number], [place] [address] May, [facility] [id number], [place] [address] May, [facility] [facility] [id number], [place] [address] May, [facility] [id number], [place] [address] 3[address] May, [facility] [id number], [place] [address] May, [facility] [id number], [place] [address] Apr, [facility] [id number], [place] [address] 45[address] Apr, [facility] [id number] [address] Apr, [facility] [id number], [place] [address] Apr, [facility] [place] [facility] [address] [id number] [place] [address]- 2538 Apr, [facility] [place] [facility] [address] [id number] [place] [address]- 6890 Apr, [facility] [place] [facility] [address] [id number] [place] [address]- 4717 Apr, [facility] [place] [facility] [address] [id number] [place] [address]- 1664 Apr, [facility] [place] [facility] [address] [id number] [place] [address]- 6649 Mar, [facility] [place] [facility] [address] [id number] [place] [address]- 6816 Mar, [facility] [place] [facility] [address] [id number] [place] [address]- 0119 Mar, [facility] [place] [facility] [address] [id number] [place] [address]- 3362 Mar, [facility] [place] [facility] [address] [id number] [place] [address]- 0367 Mar, [facility] [place] [facility] [address] [id number] [place] [address]- 2102 Mar, [facility] [place] [facility] [address] [id number] [place] [address]- 8037 Mar, [facility] [place] [facility] [address] [id number] [place] [address]- 3074 Mar, [facility] [place] [facility] [address] [id number] [place] [address]- 1144 Feb, [facility] [place] [facility] [address] [id number] [place] [address]- 0649 Feb, [facility] [place] [facility] [address] [id number] [place] [address]- 7245 Feb, [facility] [place] [facility] [address] [id number] [place] [address]- 8051 Feb, [facility] [place] [facility] [address] [id number] [place] [address]- 3721 Feb, [facility] [place] [facility] [address] [id number] [place] [address]- 0254 Feb, [facility] [place] [facility] [address] [id number] [place] [address]- 8979 Feb, [facility] [place] [facility] [address] [id number] [place] [address]- 4218 Feb, [facility] [place] [facility] [address] [id number] [place] [address]- 8982 Feb, [facility] [place] [facility] [address] [id number] [place] [address]- 7752 Feb, [facility] [place] [facility] [address] [id number] [place] [address]- 6394 Jan, [facility] [place] [facility] [address] [id number] [place] [address]- 2547 Jan, [facility] [place] [facility] [address] [id number] [place] [address]- 4626 Jan, [facility] [place] [facility] [address] [id number] [place] [address]- 6242 Jan, [facility] [place] [facility] [address] [id number] [place] [address]- 9677 Jan, [facility] [place] [facility] [address] [id number], [place] [address] 37[address] Jan, [facility] [place] [facility] [address] [id number] [place] [address]- 5364 Jan, [facility] [place] [facility] [address] [id number] [place] [address]- 4419 Jan, [facility] [place] [facility] [address] [id number] [address] 3[address] Jan, [facility] [place] [facility] [address] [id number] [place] [address]- 9826 Jan, [facility] [place] [facility] [address] [id number] [place] [address] Jan, [facility] [place] [facility] [address] [id number] [place] 49[address] Jan, [facility] [place] [facility] [address] [id number] [place] [address]- 2042 Jan, [facility] [place] [facility] [address] [id number] [place] 1427 Jan, [facility] [place] [facility] [address] [id number] [place] [address]- 4209 Jan, [facility] [place] [facility] [address] [id number] [place] [address]- 7798 Dec, [facility] [place] [facility] [address] [id number] [place] [address]- 6220 Dec, [facility] [place] [facility] [address] [id number] [place] [address]- 2083 Dec, [facility] [place] [facility] [address] [id number] [place] [address]- 0286 Dec, [facility] [place] [facility] [address] [id number] [place] [address]- 4382 Dec, [facility] [place] [facility] [address] [id number] [place] [address]- 0096 Dec, [facility] [place] [facility] [address] [id number] [place] [address] Dec, [facility] [place] [facility] [address] [id number] [place] [address]349 Dec, [facility] [place] [facility] [address] [id number] [place] [address]- 3780 Nov, [facility] [place] [facility] [address] [id number] [place] [address]- 4680 25 Sep, 2013 [facility] [place] [facility] [address] [id number] [place] [address] 2546 10 Sep, 2013 [facility] [place] [facility] [address] [id number] [place] [address]- 2416 10 Sep, 2013 [facility] [place] [facility] [address] [id number] [place] [address]- 3836 08 Sep, 2013 [facility] [place] [facility] [address] [id number] [place] [address]- 7193 08 Sep, 2013 [facility] [place] [facility] [address] [id number] [place] [address]- 0843 08 Sep, 2013 [facility] [place] [facility] [address] [id number] [place] [address]- 3637 08 Sep, 2013 [facility] [place] [facility] [address] [id number] [place] [address]- 2205 08 Sep, 2013 [facility] [place] [facility] [address] [id number] [place] [address]- 5637 08 Sep, 2013 [facility] [place] [facility] [address] [id number] [place] [address]- 9253 04 Sep, 2013 [facility] [place] [facility] [address] [id number] [place] [address]- 0564 04 Sep, 2013 [facility] [place] [facility] [address] [id number], [place] [address]- 4927 03 Sep, 2013 [facility] [place] [facility] [address] [id number], [place] [address]- 2545 02 Sep, 2013 [facility] [place] [facility] [address] [id number] [place] [address]- 2541 02 Nov, 2013 [facility] [place] [facility] [address] [id number] [place] [address]- 2407 Oct, [facility] [place] [facility] [address] [id number] [place] [address]- 7099 Oct, [facility] [place] [facility] [address] [id number] [place] [address]- 8646 Oct, [facility] [place] [facility] [address] [id number] [place] [address]- 7017 Oct, [facility] [place] [facility] [address] [id number] [place] [address]- 1604 Oct, [facility] [place] [facility] [address] [id number] [place] [address]- 6085 Oct, [facility] [place] [facility] [address] [id number] [place] [address]- 7744 Oct, [facility] [place] [facility] [address] [id number] [place] [address]- 0082 Oct, [facility] [place] [facility] [address] [id number] [place] [address]- 8079 Oct, [facility] [place] [facility] [address] [id number] [place] [address]- 6947 Oct, [facility] [place] [facility] [address] [id number] [place] [address]- 0393 Oct, [facility] [place] [facility] [address] [id number] [place] [address]- 2945 Oct, [facility] [place] [facility] [address] [id number] [place] [address]- 5834 Oct, [facility] [place] [facility] [address] [id number] [place] [address]- 4281 Oct, [facility] [place] [facility] [address] [id number] [place] [address]- 5375 Sep, [facility] [place] [facility] [address] [id number] [place] [address]- 2403 Sep, [facility] [place] [facility] [address] [id number] [place] [address]- 7044 Sep, [facility] [place] [facility] [address] [id number] [place] [address]- 4866 Sep, [facility] [place] [facility] [address] [id number] [place] [address]- 9588 Sep, 2013 [facility] [place] [facility] [address] [id number] [place] [address]- 2920 Sep, [facility] [place] [facility] [address] [id number] [place] [address]- 1607 Sep, [facility] [place] [facility] [address] [id number] [place] [address]- 3161 Sep, [facility] [place] [facility] [address] [id number] [place] [address]- 0860 Aug, [facility] [place] [facility] [address] [id number] [place] [address]- 4694 Aug, [facility] [place] [facility] [address] [id number] [place] [address]- 5472 Aug, [facility] [place] [facility] [address] [id number] [place] [address]- 2153 Aug, [facility] [place] [facility] [address] [id number] [place] [address]- 8265 Aug, [facility] [place] [facility] [address] [id number] [place] [address]- 4055 Aug, [facility] [place] [facility] [address] [id number] [place] [address]- 2165 Aug, [facility] [place] [facility] [address] [id number] [place] [address]- 3829 Aug, [facility] [place] [facility] [address] [id number] [place] [address]- 9907 July, [facility] [place] [facility] [address] [id number] [place] [address]- 3063 July, [facility] [place] [facility] [address] [id number] [place] [address]- 7984 July, [facility] [place] [facility] [address] [id number] [place] [address]- 1857 July, [facility] [place] [facility] [address] [id number] [place] [address]- 2727 July, [facility] [place] [facility] [address] [id number] [place] [address]- 0438 July, [facility] [place] [facility] [address] [id number] [place] [address]- 9786 July, [facility] [place] [facility] [address] [id number] [place] [address]- 4820 July, [facility] [place] [facility] [address] [id number] [place] [address]- 3255 Jun, [facility] [place] [facility] [address] [id number] [place] [address]- 7016 Jun, [facility] [place] [facility] [address] [id number] [place] [address]- 5598 Jun, [facility] [place] [facility] [address] [id number] [place] [address]- 8364 Jun, [facility] [place] [facility] [address] [id number] [place] [address]- 8497 Jun, [facility] [place] [facility] [address] [id number] [place] [address]- 7068 Jun, [facility] [place] [facility] [address] [id number] [place] [address]- 2429 Jun, [facility] [place] [facility] [address] [id number] [place] [address]- 5311 Jun, [facility] [place] [facility] [address] [id number] [place] [address]- 6646 Jun, [facility] [place] [facility] [address] [id number] [place] [address]- 5366 Jun, [facility] [place] [facility] [address] [id number] [place] [address]- 2368 Jun, [facility] [place] [facility] [address] [id number] [place] [address]- 3896 Jun, [facility] [address] [id number] [place] [address]- 5960 May, [facility] [place] [facility] [address] [id number] [place] [address]- 6026 May, [facility] [place] [facility] [address] [id number] [place] [address]- 9247 May, [facility] [place] [facility] [address] [id number] [place] [address]- 7969 May, [facility] [place] [facility] [address] [id number] [place] [address]- 3124 May, [facility] [place] [facility] [address] [id number] [place] [address]- 1149 May, [facility] [place] [facility] [address] [id number] [place] [address]- 6315 May, [facility] [place] [facility] [address] [id number] [place] [address]- 8447 May, [facility] [place] [facility] [address] [id number] [place] [address]- 6650 May, [facility] [place] [facility] [address] [id number] [place] [address]- 6474 May, [facility] [place] [facility] [address] [id number] [place] [address]- 0860 May, [facility] [place] [facility] [address] [id number] [place] [address]- 0863 May, [facility] [place] [facility] [address] [id number] [place] [address]- 1232 May, [facility] [place] [facility] [address] [id number] [place] [address]- 3106 May, [facility] [place] [facility] [address] [id number] [place] [address]- 9504 Apr, [facility] [place] [facility] [address] [id number] [place] [address]- 7511 Apr, [facility] [place] [facility] [address] [id number] [place] [address]- 2076 Apr, [facility] [place] [facility] [address] [id number] [place] 4491 Apr, [facility] [place] [facility] [address] [id number] [place] [address]- 1722 Apr, [facility] [place] [facility] [address] [id number] [place] [address]- 0175 Apr, [facility] [place] [facility] [address] [id number] [place] [address]- 5941 Mar, [facility] [place] [facility] [address] [id number] [place] [address]- 1398 Mar, [facility] [place] [facility] [address] [id number] [place] [address]- 9171 Mar, [facility] [place] [facility] [address] [id number] [place] [address]- 2661 Mar, [facility] [place] [facility] [address] [id number] [place] [address]- 6891 Mar, [facility] [place] [facility] [address] [id number] [place] [address]- 7706 Mar, [facility] [place] [facility] [address] [id number] [place] [address]- 7599 Mar, [facility] [place] [facility] [address] [id number] [place] [address]- 2602 Mar, [facility] [place] [facility] [address] [id number] [place] [address]- 7661 Mar, [facility] [place] [facility] [address] [id number] [place] [address]- 4193 Mar, [facility] [place] [facility] [address] [id number] [place] [address]- 2331 Mar, [facility] [address] [id number] [place] [address]- 6858 Mar, [facility] [address] [id number] [place] [address]- 4220 Mar, [facility] [address] [id number] [place] [address]- 6048 Mar, [facility] [address] [id number] [place] [address]- 5761 Feb, [facility] [address] [id number] [place] 0010 Feb, [facility] [address] [id number] [place] [address]- 7806 Feb, [facility] [address] [id number] [place] [address]- 7073 Feb, [facility] [address] [id number] [place] [address]- 3577 Feb, [facility] [address] [id number] [place] [address]- 2156 Feb, [facility] [address] [id number] [place] [address]- 0142 Feb, [facility] [address] [id number] [place] [address]- 8678 Feb, [facility] [address] [id number] [place] [address]- 7442 Feb, [facility] [address] [id number] [place] [address]- 2604 Feb, [facility] [address] [id number] [place] [address]- 2972 Feb, [facility] [address] [id number] [place] [address]- 9415 Feb, [facility] [place] [facility] [address] [id number] [place] [address]- 6700 05 Feb, 2012 [facility] [place] [facility] [address] [id number] [place] [address]- 6528 05 Feb, 2012 [facility] [place] [facility] [address] [id number] [place] [address]- 5062 05 Feb, 2012 [facility] [place] [facility] [address] [id number] [place] [address]- 1321 Feb, 2012 [facility] [place] [facility] [address] [id number] [place] [address]- 0655 24 Dec, 2012 [facility] [place] [facility] [address] [id number] [place] [address]- 8924 24 Dec, 2012 [facility] [place] [facility] [address] [id number] [place] [address]- 2857 16 Dec, 2012 [facility] [place] [facility] [address] [id number], [place] [address]- 5320 16 Dec, 2012 [facility] [place] [facility] [address] [id number], [place] [address]- 3797 16 Dec, 2012 [facility] [place] [facility] [address] [id number], [place] [address]- 9955 16 Dec, 2012 [facility] [place] [facility] [address] [id number], [place] [address]- 8517 14 Dec, 2012 [facility] [place] [facility] [address] [id number], [place] [address]- 0992 14 Dec, 2012 [facility] [place] [facility] [address] [id number], [place] [address]- 3325 10 Dec, 2012 [facility] [place] [facility] [address] [id number], [place] [address]- 1495 10 Dec, 2012 [facility] [place] [facility] [address] [id number], [place] [address]- 2675 10 Dec, 2012 [facility] [place] [facility] [address] [id number], [place] [address]- 2875 10 Dec, 2012 [facility] [address] [id number] [place] [address]- 6299 Dec, [facility] [place] [facility] [address] [id number] [place] [address]- 1583 25 Nov, 2012 [facility] [place] [facility] [address] [id number] [place] [address]- 9256 20 Nov, 2012 [facility] [place] [facility] [address] [id number] [place] [address]- 6972 18 Nov, 2012 [facility] [place] [facility] [address] [id number] [place] [address]- 0331 16 Nov, 2012 [facility] [place] [facility] [address] [id number] [place] [address]- 0498 12 Nov, 2012 [facility] [place] [facility] [address] [id number] [place] [address]- 3685 11 Nov, 2012 [facility] [place] [facility] [address] [id number] [place] [address]- 6652 05 Nov, 2012 [facility] [place] [facility] [address] [id number] [place] [address]- 5576 Oct, [facility] [place] [facility] [address] [id number] [place] [address]- 5478 Oct, [facility] [place] [facility] [address] [id number] [place] [address]- 9695 Sep, [facility] [place] [facility] [address] [id number] [place] [address]- 1219 Sep, [facility] [place] [facility] [address] [id number] [place] [address]- 5892 Sep, [facility] [place] [facility] [address] [id number] [place] [address]- 6897 Sep, [facility] [place] [facility] [address] [id number] [place] [address]- 5876 15 Sep, 2012 [facility] [place] [facility] [address] [id number] [place] [address]- 6676 09 Sep, 2012 [facility] [address] [id number] [place] [address]- 3415 Sep, [facility] [place] [facility] [address] [id number] [place] [address]- 9526 Aug, [facility] [place] [facility] [address] [id number] [place] [address]- 9538 Aug, [facility] [place] [facility] [address] [id number] [place] [address]- 2629 16 Aug, 2012 [facility] [place] [facility] [address] [id number] [place] [address]- 3967 Aug, [facility] [place] [facility] [address] [id number] [place] [address]- 6175 Aug, [facility] [place] [facility] [address] [id number] [place] [address] Aug, [facility] [address] [id number] [place] [address] Aug, [facility] [place] [facility] [address] [id number] [place] [address] Aug, [facility] [place] [facility] [address] [id number] [place] [address] July, [facility] [place] [facility] [address] [id number] [place] [address] July, [facility] [place] [facility] [address] [id number] [place] [address] July, [facility] [place] [facility] [address] [id number] [place] [id number] July, [facility] [place] [facility] [address] [id number] [place] [address] July, [facility] [place] [facility] [address] [id number] [place] [address] Jun, [facility] [address] [id number] [place] [address] May, [facility] [place] [facility] [address] [id number] [place] [address] May, [facility] [address] [id number] [place] [address] May, [facility] [place] [facility] [address] [id number] [place] [address] Apr, [facility] [address] [id number] [place] [address] Apr, [facility] [place] [facility] [address] [id number] [place] [address] Apr, [facility] [address] [id number] [place] [address] Mar, [facility] [place] [facility] [address] [id number] [place] [address]- [address] Mar, [facility] [address] [id number] [place] [address] 84[address] Mar, [facility] [address] [id number] [place] [address] Mar, [facility] [address] [id number] [place] [address] Mar, [facility] [place] [facility] [address] [id number] [place] [address] 6969 Mar, [facility] [place] [facility] [address] [id number] [place] [address] Mar, [facility] [place] [facility] [address] [id number] [place] [address] Feb, [facility] [place] [facility] [address] [id number] [place] [address] Feb, [facility] [place] [facility] [address] [id number] [place] [address]- [address] 18 Feb, 2012 [facility] [place] [facility] [address] [id number] [place] [address] 18 Feb, 2012 [facility] [place] [facility] [address] [id number] [place] [address]- 3716 Feb, [facility] [place] [facility] [address] [id number] [place] [address]- 6987 Feb, [facility] [place] [facility] [address] [id number] [place] [address]- 1089 Feb, [facility] [place] [facility] [address] [id number] [place] [address] Feb, [facility] [place] [facility] [address] [id number] [place] [address] Jan, [facility] [place] [facility] [address] [id number] [place] [address] Jan, [facility] [place] [facility] [address] [id number] [place] [address] Jan, [facility] [place] [facility] [address] [id number] [place] [address] Jan, [facility] [place] [facility] [address] [facility] [id number] [place] [address] 95[address] Jan, [facility] [place] [facility] [address] [id number] [place] [address] 9471 Jan, [facility] [place] [facility] [address] [id number] [place] [address] 7173 Jan, [facility] [place] [facility] [address] [id number] [place] [address] Jan, [facility] [place] [facility] [address] [facility] [id number] [place] [address] 1317 Jan, [facility] [place] [facility] [address] [id number], [place] [address] Jan, [facility] [place] [facility] [address] [id number] [place] [address] 72[address] Jan, [facility] [place] [facility] [address] [id number] [place] [address] 75[address] Jan, [facility] [place] [facility] [address] [id number] [place] [address] Jan, [facility] [place] [facility] [address] [id number] [place] [address] Jan, [facility] [place] [facility] [address] [id number] [place] [address]- 8863 Jan, [facility] [place] [facility] [address] [id number] [place] [address]- [address] Jan, [facility] [place] [facility] [address] [id number] [place] [address]- 2831 Dec, [facility] [place] [facility] [address] [id number] [place] [address]- 1105 Dec, [facility] [place] [facility] [address] [id number] [place] [address]- [address] Dec, [facility] [place] [facility] [address] [id number] [place] [address]- 5745 Dec, [facility] [place] [facility] [address] [facility] [id number] [place] [address]- [address]28 Dec, [facility] [place] [facility] [address] [id number], [place] [address] Dec, [facility] [place] [facility] [address] [id number] [place] [address] Dec, [facility] [place] [facility] [address] [id number] [place] [address]- 0949 Dec, [facility] [place] [facility] [address] [id number] [place] [address]- [address]64 Dec, [facility] [place] [facility] [address] [id number] [place] [address]- [address] 05 Dec, 2011 [facility] [place] [facility] [address] [id number] [place] [address]- 38[address] 18 Nov, 2011 [facility] [place] [facility] [address] [id number] [place] [address]- [address] 13 Nov, 2011 [facility] [place] [facility] [address] [id number] [place] [address]- [address]65 24 Oct, 2011 [facility] [place] [facility] [address] [id number] [place] [address]- 8610 Oct, [facility] [place] [facility] [address] [id number] [place] [address]- 5284 Oct, [facility] [place] [facility] [address] [id number] [place] [address]- 8979 16 Oct, 2011 [facility] [place] [facility] [address] [id number] [place] [address]- 0854 Oct, [facility] [place] [facility] [address] [id number] [place] [address]- 2352 Oct, [facility] [place] [facility] [address] [id number] [place] [address]- 1578 Oct, [facility] [place] [facility] [address] [id number] [place] [address]- 6[address] Sep, [facility] [place] [facility] [address] [id number] [place] [address]- 3956 Aug, [facility] [place] [facility] [address] [id number] [place] [address]- 9379 Aug, [facility] [place] [facility] [address] [id number] [place] [address]- 7692 Aug, [facility] [place] [facility] [address] [id number] [place] [address]- 5610 Aug, [facility] [place] [facility] [address] [id number] [place] [address]- 6746 Aug, [facility] [place] [facility] [address] [id number] [place] [address]- [address] July, [facility] [address] [id number] [place] [address]- 8983 July, [facility] [address] [id number] [place] [address] 2546 July, [facility] [address] [id number] [place] [address]- 1248 Jun, [facility] [address] [id number] [place] [address]858 Jun, [facility] [address] [id number] [place] [address]- 8847 Jun, [facility] [address] [id number] [place] [address]- 8728 Jun, [facility] [address] [id number] [place] [address] 30 May, 2011 [facility] [address] [id number] [place] [address] 30 May, 2011 [facility] [address] [id number] [place] [address] 29 May, 2011 [facility] [address] [id number] [place] [address] 28 May, 2011 [facility] [address] [id number] [place] [address] May, [facility] [address] [id number] [place] [address] 22 May, 2011 [facility] [place] [facility] [address] [id number] [place] [address] 21 May, 2011 [facility] [address] [id number] [place] [address] 19 May, 2011 [facility] [address] [id number] [place] [address] May, [facility] [place] [facility] [address] [id number] [place] [address] 05 May, 2011 [facility] [place] [facility] [address] [id number] [place] [address] May, [facility] [place] [facility] [address] [id number] [place] [address] May, [facility] [place] [facility] [address] [id number] [place] [address] Mar, [facility] [place] [facility] [address] [id number] [place] [address] Mar, [facility] [place] [facility] [address] [id number] [place] [address] Feb, [facility] [place] [facility] [address] [id number] [place] [address] Feb, [facility] [place] [facility] [address] [id number] [place] [address] Feb, [facility] [place] [facility] [address] [id number] [place] [address] 15 Feb, 2011 [facility] [place] [facility] [address] [id number] [place] [address] Feb, [facility] [place] [facility] [address] [id number] [place] [address] Feb, [facility] [place] [facility] [address] [id number], [place] [address] Feb, [facility] [place] [facility] [address] [id number] [place] [address] Jan, [facility] [place] [facility] [address] [id number] [place] [address] Jan, [facility] [place] [facility] [address] [id number] [place] [address] Jan, [facility] [place] [facility] [address] [id number], [place] [address] 17 Jan, 2011 [facility] [place] [facility] [address] [id number] [place] [address] Jan, [facility] [place] [facility] [address] [id number] [place] [address] Jan, [facility] [place] [facility] [address] [id number] [place] [address] Dec, [facility] [place] [facility] [address] [id number] [place] [address] Dec, [facility] [place] [facility] [address] [id number] [place] [address], [place] [address] Dec, [facility] [place] [facility] [address] [id number] [place] [address] July, [facility] [address] [facility] [id number] [place] [address], [place] [address] July, [facility] [place] [facility] [address] [id number] [place] [address] Feb, [facility] [place] [facility] [address] [facility] [id number] [place] [address] Jan, [facility] [place] [facility] [address] [facility] [id number] [place] [address] Dec, [facility] [place] [facility] [address] [id number], [place] [address] Dec, [facility] [place] [facility] [address] [id number], [place] [address] Sep, [facility] [place] [facility] [address] [id number] [place] [address] Aug, [facility] [place] [facility] [address] [facility] [id number] [place] [address] Jun, [facility] [place] [facility] [address] [facility] [id number], [place] [address] Jun, [facility] [place] [facility] [address], [place] [address] Jan, [facility] [address], [place] [address] Jan, [facility] [address], [place] [address] Jan, [facility] [address], [place] [address] Jan, [facility] [address], [place] [address] Dec, [facility] [id number] [place] [address] Dec, [facility] [address], [place] [address] Dec, [facility] [address], [place] [address] Nov, [facility] [address], [place] [address] July, [facility] [address], [place] [address] May, [facility] [address], [place] [address] Apr, [facility] [address], [place] [address] Feb, [facility] [address] [id number], [place] [address] Dec, IMMUNIZATIONS No Known Immunizations SOCIAL HISTORY Never Assessed REASON FOR VISIT f/u PLAN OF CARE Activity Details Follow Up 2 sessions, 2 weeks apart, 1/2 hour. Reason: VITAL SIGNS MEDICATIONS Unknown Medications RESULTS No Results PROCEDURES Procedure Date Ordered Result Body Site No Charge September 10, 2016 INSTRUCTIONS MEDICATIONS ADMINISTERED No Known Medications [...]
== END 2017-09-01 18:45 | disposition home or self-care (01) ==
LOC: EDUNIT# 18:27 → ER 18:29
DX: K08.89 Other specified disorders of teeth and supporting structures (principal); E78.00 Pure hypercholesterolemia, unspecified; G43.909 Migraine, unspecified, not intractable, without status migrainosus; E11.9 Type 2 diabetes mellitus without complications; F41.9 Anxiety disorder, unspecified; F31.9 Bipolar disorder, unspecified; Z88.0 Allergy status to penicillin; Z88.8 Allergy status to other drugs, medicaments and biological substances; Z79.82 Long term (current) use of aspirin; Z82.49 Family history of ischemic heart disease and other diseases of the circulatory system; Z79.4 Long term (current) use of insulin; Z87.19 Personal history of other diseases of the digestive system; Z87.59 Personal history of other complications of pregnancy, childbirth and the puerperium
CPT/HCPCS: 99282

== ENCOUNTER 2017-10-02 09:08 | Emergency (ER) | payer SELFPAY ==
[~2017-10-02] VITALS: Ht 157.5 cm; Wt 83.9 kg
[~2017-10-02 09:08] MED LIST changes: +AMOX-358 PO; +LIDO15SO2 MM; +NAPR-915 PO
--- NOTE | 2017-10-02 11:06 | ED GI ---
General Chief Complaint: Abdominal/GI Problems Stated Complaint: DIARRHEA SINCE WEDNESDAY Nursing Triage Note: C/O ABD CRAMPING SINCE WEDNESDAY WT DIARRHEA Sepsis Screen: No Definite Risk Source of Information: Patient Exam Limitations: No Limitations History of Present Illness Date Seen by Provider: Oct 02, 2017 Time Seen by Provider: 10:55 Initial Comments The patient presents to the ER by private conveyance with a chief complaint she' s been having diarrhea since about Wednesday. She says her then got a Wednesday and they both of been dealing with it. She says she had to call off work yesterday and again today but has not seen her doctor yet. She does not have any significant abdominal pain or nausea. No fevers or chills. She did have a but no other abdominal surgeries. Her diarrhea does not get worse with eating or drinking. She's been able to keep up with her drinking. She took some Pepto-Bismol but it did not improve her symptoms. Allergies and Home Medications Allergies Coded Allergies: azithromycin (Unverified Allergy, Unknown, 10/28/13) CHEST PAIN prednisone (Unverified Adverse Reaction, Unknown, RAISES BLOOD SUGAR, ) Home Medications Aspirin 81 Mg Tabec, 81 MG PO DAILY, (Reported) Citalopram Hydrobromide 20 Mg Tablet, 1 EACH PO BID, (Reported) Hum Insulin Nph/Reg Insulin Hm 10 Ml Vial, 110 UNITS SQ BID, (Reported) Lamotrigine 150 Mg Tablet, 150 MG PO DAILY, (Reported) Lidocaine HCl 15 Ml Solution, 15 ML MM Q 1-2 HOURS Prescribed by: MAR MANE on 09/01/171836 Liraglutide 0.6 Mg/0.1 Ml Pen.injctr, 1.8 MG SC HS, (Reported) Losartan Potassium 25 Mg Tablet, 1 EACH PO BID, (Reported) Naproxen 500 Mg Tablet, 500 MG PO BID Prescribed by: MAR MANE on 09/01/171836 Ondansetron 8 Mg Tab.rapdis, 8 MG PO Q6H PRN for NAUSEA/VOMITING-1ST LINE Prescribed by: ANGIE MAS on 06/11/171702 Phenazopyridine HCl 100 Mg Tablet, 100 MG PO Q8H PRN for pain Prescribed by: ANGIE MAS on 06/11/171702 Pioglitazone Hcl 45 Mg Tablet, 45 MG PO DAILY, (Reported) Simvastatin 40 Mg Tablet, 2 TAB PO DAILY, (Reported) Triamcinolone Acet 15 Gm Cr, 15 GM TP BID Prescribed by: SOCO JOAQUIN on 06/14/172210 Patient Home Medication List Home Medication List Reviewed: Yes Review of Systems Constitutional: No chills, No diaphoresis, No fever EENTM: No Blurred Vision, No Double Vision Respiratory: Denies Cough, Denies Shortness of Air Cardiovascular: Denies Chest Pain, Denies Edema Gastrointestinal: Denies Abdomen Distended, Denies Abdominal Pain, Denies Constipated; Diarrhea; Denies Difficulty Swallowing, Denies Nausea, Denies Poor Fluid Intake, Denies Rectal Bleeding, Denies Vomiting Genitourinary: Denies Burning, Denies Discharge, Denies Drainage Musculoskeletal: No back pain, No joint pain Past Vhcvcld-Fqwwbx-Kfmkdx Hx Patient Social History Alcohol Use: Denies Use Recreational Drug Use: No Smoking Status: Never a Smoker 2nd Hand Smoke Exposure: No Recent Foreign Travel: No Contact w/Someone Who Travel: No Recent Infectious Disease Expo: No Recent Hopitalizations: No Immunizations Up To Date Tetanus Booster (TDap): More than 5yrs PED Vaccines UTD: Yes Date of Pneumonia Vaccine: Mar 29, 2008 Date of Influenza Vaccine: Dec 28, 2016 Seasonal Allergies Seasonal Allergies: Yes Past Medical History Surgeries: Yes (LARRY CARPAL TUNNEL, HERNIA REPAIR, BACK SURGERY 2014; DENTAL EXTRACTIONS) Section, Orthopedic Respiratory: No Cardiac: Yes High Cholesterol Neurological: Yes Headaches /Migraines Reproductive Disorders: No Sexually Transmitted Disease: No HIV/AIDS: No Gastrointestinal: Yes Abdominal Hernia, Irritable Bowel Musculoskeletal: Yes Arthritis, Chronic Back Pain Endocrine: Yes (Type II, 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, Non-Insulin dep HEENT: Yes (DENTAL ISSUSES/EXTRACTIONS) Cancer: No Psychosocial: Yes Anxiety, Bipolar, Personality Disorder, Depression Integumentary: No Blood Disorders: No Adverse Reaction/Blood Tranf: No Family Medical History Alcoholism 19 FATHER Arthritis 19 MOTHER Cataracts 19 MOTHER Diabetes mellitus 19 FATHER 19 MOTHER FH: stroke 19 FATHER Hypercholesterolemia 19 MOTHER Hypertension 19 MOTHER No Family History of: Cardiovascular disease Glaucoma Osteoporosis Prostate cancer No Pertinent Family Hx Physical Exam Vital Signs Vital Signs - First Documented 10/02/17 09:56 Temp 96.8 Pulse 81 Resp 18 B/P (MAP) 121/61 (81) Pulse Ox 98 O2 Delivery Room Air Capillary Refill : Less Than 3 Seconds Height/Weight/BMI Height: 5', 2.00" Weight: 185lbs 0oz, [id number] Method:Stated ,36.6BMI General Appearance: WD/WN, no apparent distress HEENT: PERRL/EOMI, pharynx normal Neck: non-tender, normal inspection Respiratory: chest non-tender, lungs clear, normal breath sounds, no respiratory distress, no accessory muscle use Cardiovascular: normal peripheral pulses, regular rate, rhythm Gastrointestinal: normal bowel sounds, non tender, soft, no organomegaly Extremities: normal inspection, normal capillary refill Progress/Results/Core Measures Results/Orders Lab Results Laboratory Tests Test 10/02/17 11:07 Range/Units Urine Color YELLOW Urine Clarity SLIGHTLY CLOUDY Urine pH 5 5-9 Urine Specific [place] 1.020 1.016-1.022 Urine Protein 1+ H NEGATIVE Urine Glucose (UA) 4+ H NEGATIVE Urine Ketones 3+ H NEGATIVE Urine Nitrite NEGATIVE NEGATIVE Urine Bilirubin NEGATIVE NEGATIVE Urine Urobilinogen NORMAL NORMAL MG/DL Urine Leukocyte Esterase NEGATIVE NEGATIVE Urine RBC (Auto) 4+ H NEGATIVE Urine RBC 0-2 /HPF Urine WBC 0-2 /HPF Urine Squamous Epithelial Cells 2-5 /HPF Urine Crystals NONE /LPF Urine Bacteria NEGATIVE /HPF Urine Casts NONE /LPF Urine Mucus NEGATIVE /LPF Urine Yeast FEW H /HPF Urine Culture Indicated NO Urine Test NEGATIVE NEGATIVE My Orders Orders - MYAH OLIVAS Hcg,Qualitative Urine (10/02/17 11:00) Ua Culture If Indicated (10/02/17 11:00) Vital Signs/I&O 10/02/17 09:56 Temp 96.8 Pulse 81 Resp 18 B/P (MAP) 121/61 (81) Pulse Ox 98 O2 Delivery Room Air Blood Pressure Mean: 81 Progress Progress Note : Time: 11:05 Progress Note Patient's symptoms, clinical examination and presentation are most consistent with viral gastroenteritis. She does not appear to be dehydrated. Intermittent recommendations for Imodium and get a urinalysis just to rule out UTI. Departure Impression Primary Impression: Gastroenteritis and colitis, viral Additional Impression: Yeast vaginitis Disposition: 01 HOME, SELF-CARE Condition: Stable Departure-Patient Inst. Decision time for Depature: 12:14 Referrals: [facility]/Reji (PCP) Primary Care Physician BEVERLY TAO (Family) Primary Care Physician Patient Instructions: Viral Gastroenteritis, Adult (DC) Add. Discharge Instructions: Drink plenty of fluids. Stay on a bland diet of bananas, rice, applesauce and toast etc. supervisor compressed yeast some Imodium and take 2 tablets to start and then one tablet every 4 hours afterwards until your stools are normal longer watery. If you have nausea you can take one tablet of Zofran every 6 hours as needed. All discharge instructions reviewed with patient and/or family. Voiced understanding. Scripts Ondansetron (Ondansetron Odt) 4 Mg Tab.rapdis 4 MG PO Q6H PRN for NAUSEA/VOMITING, #8 TAB 0 Refills Prov: MYAH OLIVAS 10/02/17 Copy Copies To 1: LUCIANO WILLARD DO MYAH OLIVAS Oct 02, 2017 11:06
[2017-10-02 11:54] LABS: BILIRUBIN,URINE NEGATIVE (NEGATIVE); CLARITY,URINE SLIGHTLY CLOUDY; COLOR,URINE YELLOW; GLUCOSE, URINE (UA) 4+ (NEGATIVE); KETONES,URINE 3+ (NEGATIVE); LEUKOCYTE ESTERASE ,URINE NEGATIVE (NEGATIVE); NITRITE,URINE NEGATIVE (NEGATIVE); PH,URINE 5 (5-9); PROTEIN,URINE 1+ (NEGATIVE); UROBILINOGEN,URINE NORMAL (NORMAL)
[2017-10-02 12:05] LABS: BACTERIA,URINE NEGATIVE /HPF; RBC,URINE 0-2 /HPF; WBC,URINE 0-2 /HPF; YEAST,URINE FEW /HPF
[2017-10-02] MEDS ORDERED: ONDA4TAB11 PO (12:15)
[2017-10-02 12:23] VITALS: BP 121/61
[2017-10-02] MEDS ORDERED: FLUCONAZOLE 150 MG TABLET (ED ONLY) PO ONE (12:30)
== END 2017-10-02 12:35 | disposition home or self-care (01) ==
LOC: EDUNIT# 09:08 → ER 09:09
DX: A08.4 Viral intestinal infection, unspecified (principal); B37.3 Candidiasis of vulva and vagina; E78.00 Pure hypercholesterolemia, unspecified; G43.909 Migraine, unspecified, not intractable, without status migrainosus; E11.9 Type 2 diabetes mellitus without complications; F41.9 Anxiety disorder, unspecified; F31.9 Bipolar disorder, unspecified; Z88.0 Allergy status to penicillin; Z87.19 Personal history of other diseases of the digestive system; Z82.49 Family history of ischemic heart disease and other diseases of the circulatory system; Z79.4 Long term (current) use of insulin; Z79.82 Long term (current) use of aspirin; Z87.59 Personal history of other complications of pregnancy, childbirth and the puerperium
CPT/HCPCS: 81000; 84703; 99283

== ENCOUNTER 2018-03-17 09:19 | Emergency (ER) | payer OTHER ==
[~2018-03-17] VITALS: Ht 157.5 cm; Wt 83.9 kg
[~2018-03-17 09:19] MED LIST changes: +HYDR-4226 PO; +ONDA4TAB11 PO
[2018-03-17 09:48] LABS: BASOPHILS # (AUTO) 0.1 10^3/uL (0.0-0.1); BASOPHILS % (AUTO) 0 % (0-10); EOSINOPHILS % (AUTO) 0 % (0-10); HEMATOCRIT 45 % (35-52); HEMOGLOBIN 15.5 G/DL (11.5-16.0); LYMPHOCYTES # (AUTO) 1.8 X 10^3 (1.0-4.0); LYMPHOCYTES % (AUTO) 15 % (12-44); MEAN CORPUSCULAR HEMOGLOBIN 29 PG (25-34); MEAN CORPUSCULAR HGB CONC 35 G/DL (32-36); MEAN CORPUSCULAR VOLUME 83 FL (80-99); MEAN PLATELET VOLUME 10.2 FL (7.4-10.4); MONOCYTES # (AUTO) 0.6 X 10^3 (0.0-1.0); MONOCYTES % (AUTO) 5 % (0-12); NEUTROPHILS # (AUTO) 9.5 X 10^3 (1.8-7.8); NEUTROPHILS % (AUTO) 79 % (42-75); PLATELET COUNT 316 10^3/uL (130-400); RED BLOOD COUNT 5.44 10^6/uL (4.35-5.85); RED CELL DISTRIBUTION WIDTH 13.6 % (10.0-14.5); WHITE BLOOD COUNT 11.9 10^3/uL (4.3-11.0)
[2018-03-17] MEDS: NS IV 1000 ML 1,000 ML IV STA (09:50)
[2018-03-17] MEDS: ONDANSETRON 4 MG/2 ML (SDV) Z0FRAN IVP ONE (09:50)
[2018-03-17] MEDS: KETOROLAC 30 MG/ML VIAL IVP STA (09:50)
--- NOTE | 2018-03-17 09:53 | ED Abdominal Pain ---
General Chief Complaint: Abdominal/GI Problems Stated Complaint: NAUSEA,WEAKNESS Source of Information: Patient Exam Limitations: No Limitations History of Present Illness Date Seen by Provider: Mar 17, 2018 Time Seen by Provider: 09:35 Initial Comments Here with report of upper abdominal pain since this morning. Is associated with body aches and weakness. She's had some nausea but no vomiting. Denies diarrhea. Overall does not feel well. Timing/Duration: 4-6 Hours Severity/Quality: Moderate Location: Epigastric Radiation: RUQ, LUQ, RLQ, LLQ Modifying Factors: Worsens With Eating Associated Symptoms: No Back Pain, No Chest Pain, No Fever/Chills; Nausea/ Vomiting; No Shortness of Air, No Weakness Allergies and Home Medications Allergies Coded Allergies: azithromycin (Unverified Allergy, Unknown, 10/28/13) CHEST PAIN prednisone (Unverified Adverse Reaction, Unknown, RAISES BLOOD SUGAR, ) Home Medications Aspirin 81 Mg Tabec, 81 MG PO DAILY, (Reported) Citalopram Hydrobromide 20 Mg Tablet, 1 EACH PO BID, (Reported) Hum Insulin Nph/Reg Insulin Hm 10 Ml Vial, 110 UNITS SQ BID, (Reported) Lamotrigine 150 Mg Tablet, 150 MG PO DAILY, (Reported) Lidocaine HCl 15 Ml Solution, 15 ML MM Q 1-2 HOURS Prescribed by: MRA MANE on 09/01/171836 Liraglutide 0.6 Mg/0.1 Ml Pen.injctr, 1.8 MG SC HS, (Reported) Losartan Potassium 25 Mg Tablet, 1 EACH PO BID, (Reported) Naproxen 500 Mg Tablet, 500 MG PO BID Prescribed by: MAR MANE on 09/01/171836 Ondansetron 8 Mg Tab.rapdis, 8 MG PO Q6H PRN for NAUSEA/VOMITING-1ST LINE Prescribed by: ANGIE MAS on 06/11/17 170 Ondansetron 4 Mg Tab.rapdis, 4 MG PO Q6H PRN for NAUSEA/VOMITING Prescribed by: MYAH OLIVAS on 10/02/17 1215 Phenazopyridine HCl 100 Mg Tablet, 100 MG PO Q8H PRN for pain Prescribed by: ANGIE MAS on 06/11/17 170 Pioglitazone Hcl 45 Mg Tablet, 45 MG PO DAILY, (Reported) Simvastatin 40 Mg Tablet, 2 TAB PO DAILY, (Reported) Triamcinolone Acet 15 Gm Cr, 15 GM TP BID Prescribed by: SOCO JOAQUIN on 06/14/17 2211 Patient Home Medication List Home Medication List Reviewed: Yes Review of Systems Review of Systems Constitutional: see HPI; No chills, No fever EENTM: No Symptoms Reported Respiratory: Denies Cough, Denies Shortness of Air Cardiovascular: Denies Chest Pain; Palpitations Gastrointestinal: Abdominal Pain; Denies Diarrhea; Nausea; Denies Vomiting Genitourinary: No Symptoms Reported Musculoskeletal: No joint pain; muscle pain Skin: no symptoms reported Psychiatric/Neurological: No Symptoms Reported All Other Systems Reviewed Negative Unless Noted: Yes Past Lgoniot-Yjalsd-Pjoogl Hx Past Med/Social Hx: Reviewed Nursing Past Med/Soc Hx Patient Social History Alcohol Use: Denies Use Recreational Drug Use: No Smoking Status: Never a Smoker 2nd Hand Smoke Exposure: No Recent Foreign Travel: No Contact w/Someone Who Travel: No Recent Hopitalizations: No Immunizations Up To Date Tetanus Booster (TDap): More than 5yrs PED Vaccines UTD: Yes Date of Pneumonia Vaccine: Mar 29, 2008 Date of Influenza Vaccine: Dec 28, 2016 Seasonal Allergies Seasonal Allergies: Yes Past Medical History Surgeries: Yes (LARRY CARPAL TUNNEL, HERNIA REPAIR, BACK SURGERY 2014; DENTAL EXTRACTIONS) Section, Orthopedic Respiratory: No Cardiac: Yes High Cholesterol Neurological: Yes Headaches /Migraines Reproductive Disorders: No Sexually Transmitted Disease: No HIV/AIDS: No Gastrointestinal: Yes Abdominal Hernia, Irritable Bowel Musculoskeletal: Yes Arthritis, Chronic Back Pain Endocrine: Yes (Type II, 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, Non-Insulin dep HEENT: Yes (DENTAL ISSUSES/EXTRACTIONS) Cancer: No Psychosocial: Yes Anxiety, Bipolar, Personality Disorder, Depression Integumentary: No Blood Disorders: No Adverse Reaction/Blood Tranf: No Family Medical History Reviewed Nursing Family Hx Alcoholism 19 FATHER Arthritis 19 MOTHER Cataracts 19 MOTHER Diabetes mellitus 19 FATHER 19 MOTHER FH: stroke 19 FATHER Hypercholesterolemia 19 MOTHER Hypertension 19 MOTHER No Family History of: Cardiovascular disease Glaucoma Osteoporosis Prostate cancer No Pertinent Family Hx Physical Exam Vital Signs Vital Signs - First Documented 03/17/18 09:33 Temp 96.9 Pulse 108 Resp 18 B/P (MAP) 154/75 (101) Pulse Ox 99 Capillary Refill : Height/Weight/BMI Height: 5'2.00" Weight: 185lbs. 0oz. 83.044567kc; 36.6 BMI Method:Stated General Appearance: WD/WN, no apparent distress HEENT: PERRL/EOMI, pharynx normal Neck: full range of motion, supple Respiratory: lungs clear, normal breath sounds Cardiovascular: no murmur, tachycardia Gastrointestinal: soft; No guarding, No rebound; tenderness (mild diffuse) Extremities: normal range of motion, non-tender Back: normal inspection, no CVA tenderness, no vertebral tenderness Neurologic/Psychiatric: alert, oriented x 3 Skin: normal color, warm/dry Progress/Results/Core Measures Results/Orders Lab Results Laboratory Tests Test 03/17/18 09:40 03/17/18 10:01 Range/Units White Blood Count 11.9 H 4.3-11.0 10^3/uL Red Blood Count 5.44 4.35-5.85 10^6/uL Hemoglobin 15.5 11.5-16.0 G/DL Hematocrit 45 35-52 % Mean Corpuscular Volume 83 80-99 FL Mean Corpuscular Hemoglobin 29 25-34 PG Mean Corpuscular Hemoglobin Concent 35 32-36 G/DL Red Cell Distribution Width 13.6 10.0-14.5 % Platelet Count 316 130-400 10^3/uL Mean Platelet Volume 10.2 7.4-10.4 FL Neutrophils (%) (Auto) 79 H 42-75 % Lymphocytes (%) (Auto) 15 12-44 % Monocytes (%) (Auto) 5 0-12 % Eosinophils (%) (Auto) 0 0-10 % Basophils (%) (Auto) 0 0-10 % Neutrophils # (Auto) 9.5 H 1.8-7.8 X 10^3 Lymphocytes # (Auto) 1.8 1.0-4.0 X 10^3 Monocytes # (Auto) 0.6 0.0-1.0 X 10^3 Eosinophils # (Auto) 0.0 0.0-0.3 10^3/uL Basophils # (Auto) 0.1 0.0-0.1 10^3/uL Sodium Level 138 135-145 MMOL/L Potassium Level 4.1 3.6-5.0 MMOL/L Chloride Level 105 98-107 MMOL/L Carbon Dioxide Level 13 L 21-32 MMOL/L Anion Gap 20 H 5-14 MMOL/L Blood Urea Nitrogen 21 H 7-18 MG/DL Creatinine 0.74 0.60-1.30 MG/DL Estimat Glomerular Filtration Rate > 60 BUN/Creatinine Ratio 28 Glucose Level 348 H 70-105 MG/DL Calcium Level 9.6 8.5-10.1 MG/DL Corrected Calcium 9.2 8.5-10.1 MG/DL Magnesium Level 2.1 1.8-2.4 MG/DL Total Bilirubin 0.4 0.1-1.0 MG/DL Aspartate Amino Transf (AST/SGOT) 17 5-34 U/L Alanine Aminotransferase (ALT/SGPT) 20 0-55 U/L Alkaline Phosphatase 116 40-136 U/L Total Protein 8.3 H 6.4-8.2 GM/DL Albumin 4.5 3.2-4.5 GM/DL Lipase 37 8-78 U/L Urine Color YELLOW Urine Clarity CLEAR Urine pH 5 5-9 Urine Specific [place] 1.015 L 1.016-1.022 Urine Protein NEGATIVE NEGATIVE Urine Glucose (UA) 4+ H NEGATIVE Urine Ketones 4+ H NEGATIVE Urine Nitrite NEGATIVE NEGATIVE Urine Bilirubin NEGATIVE NEGATIVE Urine Urobilinogen NORMAL NORMAL MG/DL Urine Leukocyte Esterase NEGATIVE NEGATIVE Urine RBC (Auto) NEGATIVE NEGATIVE Urine RBC 0-2 /HPF Urine WBC NONE /HPF Urine Squamous Epithelial Cells 2-5 /HPF Urine Crystals NONE /LPF Urine Bacteria NEGATIVE /HPF Urine Casts NONE /LPF Urine Mucus NEGATIVE /LPF Urine Culture Indicated NO My Orders Orders - KEYONNA RICO MD Cbc With Automated Diff (03/17/18 09:40) Comprehensive Metabolic Panel (03/17/18 09:40) Lipase (03/17/18 09:40) Magnesium (03/17/18 09:40) Ondansetron Injection (Zofran Injectio (03/17/18 09:45) Ns Iv 1000 Ml (Sodium Chloride 0.9%) (03/17/18 09:40) Saline Lock/Iv-Start (03/17/18 09:40) Ketorolac Injection (Toradol Injection) (03/17/18 09:40) Ua Culture If Indicated (03/17/18 10:11) Saline Lock/Iv-Start (03/17/18 10:30) Ns Iv 1000 Ml (Sodium Chloride 0.9%) (03/17/18 10:30) Insulin (Regular) Human (Humulin R (Per (03/17/18 10:30) Medications Given in ED Current Medications Medications Dose Ordered Sig/Ernesto Route Start Time Stop Time Status Last Admin Dose Admin Ondansetron HCl 4 mg ONCE ONCE IVP 03/17/18 09:45 03/17/18 09:46 DC 03/17/18 09:50 4 MG Sodium Chloride 1,000 ml @ 0 mls/hr Q0M ONCE IV 03/17/18 10:30 03/17/18 10:38 DC 03/17/18 10:47 1,000 MLS/HR Vital Signs/I&O 03/17/18 09:33 Temp 96.9 Pulse 108 Resp 18 B/P (MAP) 154/75 (101) Pulse Ox 99 Progress Progress Note : Progress Note Seen and evaluated. IV, labs, normal saline 1 L bolus, Zofran 4 mg IV and Toradol 30 mg IV ordered. UA ordered. Monitor patient. I did review previous CT scan and patient had no gallbladder issues at that time. 1035: Repeat normal saline 1 L bolus. Insulin 10 units IV. Overall she is feeling much better but does appear to be dry and is hyperglycemic. No indications for admission. Patient feels more comfortable and feels like she can tolerate at home after the fluids. 1147: Overall much improved. Discharged home with return precautions. Patient verbalize understanding instructions and agreement with plan. Departure Impression Primary Impression: Upper abdominal pain Additional Impressions: Moderate nausea Uncontrolled diabetes mellitus with hyperglycemia, with long-term current use of insulin Disposition: 01 HOME, SELF-CARE Condition: Improved Departure-Patient Inst. Decision time for Depature: 10:55 Referrals: [facility]/ (PCP) Primary Care Physician BEVERLY TAO (Family) Primary Care Physician Patient Instructions: Acute Abdomen (Belly Pain), Adult (DC), Hyperglycemia, Adult (DC), Nausea and Vomiting, Adult (DC) Add. Discharge Instructions: All discharge instructions reviewed with patient and/or family. Voiced understanding. Continue your medications as previously prescribed. Drink plenty of nonsugar fluids. Clear liquid or light diet for the next 24 hours and then advance as tolerated. Return for worse pain, fever, vomiting, weakness, breathing problems or other concerns as needed. Scripts Ondansetron (Ondansetron Odt) 4 Mg Tab.rapdis 4 MG PO Q6H PRN for NAUSEA/VOMITING, #8 TAB 0 Refills Prov: KEYONNA RICO MD 03/17/18 KEYONNA RICO MD Mar 17, 2018 09:53
[2018-03-17 10:09] LABS: ALANINE AMINOTRANSFERASE 20 U/L (0-55); ALBUMIN 4.5 GM/DL (3.2-4.5); ALKALINE PHOSPHATASE 116 U/L (40-136); BILIRUBIN,TOTAL 0.4 MG/DL (0.1-1.0); BUN/CREATININE RATIO 28; CALCIUM 9.6 MG/DL (8.5-10.1); CARBON DIOXIDE 13 MMOL/L (21-32); CHLORIDE 105 MMOL/L (98-107); CREATININE SERUM 0.74 MG/DL (0.60-1.30); GFR ESTIMATED > 60; GLUCOSE 348 MG/DL (70-105); LIPASE 37 U/L (8-78); MAGNESIUM 2.1 MG/DL (1.8-2.4); POTASSIUM 4.1 MMOL/L (3.6-5.0); SODIUM 138 MMOL/L (135-145); TOTAL PROTEIN 8.3 GM/DL (6.4-8.2)
[2018-03-17 10:16] LABS: BILIRUBIN,URINE NEGATIVE (NEGATIVE); CLARITY,URINE CLEAR; COLOR,URINE YELLOW; GLUCOSE, URINE (UA) 4+ (NEGATIVE); KETONES,URINE 4+ (NEGATIVE); LEUKOCYTE ESTERASE ,URINE NEGATIVE (NEGATIVE); NITRITE,URINE NEGATIVE (NEGATIVE); PH,URINE 5 (5-9); PROTEIN,URINE NEGATIVE (NEGATIVE); UROBILINOGEN,URINE NORMAL (NORMAL)
[2018-03-17 10:25] LABS: BACTERIA,URINE NEGATIVE /HPF; RBC,URINE 0-2 /HPF
[2018-03-17] MEDS: NS IV 1000 ML 1,000 ML IV ONE (10:47)
[2018-03-17] MEDS: inSUlin (REGULAR) HUMAN 1 UNIT/0.01 ML (CHARGE PER UNIT) IV STA (10:47)
[2018-03-17] MEDS ORDERED: ONDA4TAB11 PO (11:49)
[2018-03-17 11:56] VITALS: BP 154/75
== END 2018-03-17 11:56 | disposition home or self-care (01) ==
LOC: EDUNIT# 09:19 → ER 09:20
DX: R10.11 Right upper quadrant pain (principal); R11.0 Nausea; E11.65 Type 2 diabetes mellitus with hyperglycemia; E78.00 Pure hypercholesterolemia, unspecified; G43.909 Migraine, unspecified, not intractable, without status migrainosus; F31.9 Bipolar disorder, unspecified; F41.9 Anxiety disorder, unspecified; F60.9 Personality disorder, unspecified; Z87.19 Personal history of other diseases of the digestive system; Z79.4 Long term (current) use of insulin; Z88.1 Allergy status to other antibiotic agents; Z88.8 Allergy status to other drugs, medicaments and biological substances; Z79.82 Long term (current) use of aspirin; Z98.890 Other specified postprocedural states
CPT/HCPCS: 36415; 80053; 81000; 82962; 83690; 83735; 85025; 96361; 96374; 96375

== ENCOUNTER 2018-03-21 10:24 | Emergency (ER) | payer SELFPAY ==
[~2018-03-21] VITALS: Ht 157.5 cm; Wt 81.2 kg
[2018-03-21 11:14] LABS: BASOPHILS # (AUTO) 0.1 10^3/uL (0.0-0.1); BASOPHILS % (AUTO) 1 % (0-10); EOSINOPHILS % (AUTO) 0 % (0-10); HEMATOCRIT 41 % (35-52); HEMOGLOBIN 14.4 G/DL (11.5-16.0); LYMPHOCYTES % (AUTO) 21 % (12-44); MEAN CORPUSCULAR HEMOGLOBIN 28 PG (25-34); MEAN CORPUSCULAR HGB CONC 35 G/DL (32-36); MEAN CORPUSCULAR VOLUME 81 FL (80-99); MEAN PLATELET VOLUME 9.8 FL (7.4-10.4); MONOCYTES # (AUTO) 0.6 X 10^3 (0.0-1.0); MONOCYTES % (AUTO) 7 % (0-12); NEUTROPHILS # (AUTO) 6.6 X 10^3 (1.8-7.8); NEUTROPHILS % (AUTO) 71 % (42-75); PLATELET COUNT 273 10^3/uL (130-400); RED BLOOD COUNT 5.08 10^6/uL (4.35-5.85); RED CELL DISTRIBUTION WIDTH 13.6 % (10.0-14.5); WHITE BLOOD COUNT 9.3 10^3/uL (4.3-11.0)
--- NOTE | 2018-03-21 11:14 | ED General ---
General Chief Complaint: Abdominal/GI Problems Stated Complaint: LOW BLOOD SUGAR- 133/NAUSEA Source of Information: Patient Exam Limitations: No Limitations History of Present Illness Date Seen by Provider: Mar 21, 2018 Time Seen by Provider: 11:13 Initial Comments To ER with reports of low blood sugar 133. She states that typically her blood sugar runs in the 180-300 range and she is "not functional" when he gets into the 130s. She's had nausea for the past 2 days as well as some suprapubic abdominal pain. No fevers or chills. No cough. Timing/Duration: 1-2 Days Severity: Moderate Associated Systoms: No Cough, No Fever/Chills; Nausea/Vomiting Allergies and Home Medications Allergies Coded Allergies: azithromycin (Unverified Allergy, Unknown, 10/28/13) CHEST PAIN prednisone (Unverified Adverse Reaction, Unknown, RAISES BLOOD SUGAR, ) Home Medications Aspirin 81 Mg Tabec, 81 MG PO DAILY, (Reported) Citalopram Hydrobromide 20 Mg Tablet, 1 EACH PO BID, (Reported) Hum Insulin Nph/Reg Insulin Hm 10 Ml Vial, 110 UNITS SQ BID, (Reported) Lamotrigine 150 Mg Tablet, 150 MG PO DAILY, (Reported) Lidocaine HCl 15 Ml Solution, 15 ML MM Q 1-2 HOURS Prescribed by: MAR MANE on 09/01/171836 Liraglutide 0.6 Mg/0.1 Ml Pen.injctr, 1.8 MG SC HS, (Reported) Losartan Potassium 25 Mg Tablet, 1 EACH PO BID, (Reported) Naproxen 500 Mg Tablet, 500 MG PO BID Prescribed by: MAR MANE on 09/01/171836 Ondansetron 8 Mg Tab.rapdis, 8 MG PO Q6H PRN for NAUSEA/VOMITING-1ST LINE Prescribed by: ANGIE MAS on 06/11/17 1703 Ondansetron 4 Mg Tab.rapdis, 4 MG PO Q6H PRN for NAUSEA/VOMITING Prescribed by: MYAH OLIVAS on 10/02/17 1215 Ondansetron 4 Mg Tab.rapdis, 4 MG PO Q6H PRN for NAUSEA/VOMITING Prescribed by: KEYONNA RICO on 03/17/18 1149 Phenazopyridine HCl 100 Mg Tablet, 100 MG PO Q8H PRN for pain Prescribed by: ANGIE MAS on 06/11/17 1703 Pioglitazone Hcl 45 Mg Tablet, 45 MG PO DAILY, (Reported) Promethazine HCl 25 Mg Tablet, 25 MG PO Q6H PRN for NAUSEA/VOMITING Prescribed by: SOCO JOAQUIN on 03/21/18 1138 Simvastatin 40 Mg Tablet, 2 TAB PO DAILY, (Reported) Triamcinolone Acet 15 Gm Cr, 15 GM TP BID Prescribed by: SOCO JOAQUIN on 06/14/17 2211 Patient Home Medication List Home Medication List Reviewed: Yes Review of Systems Review of Systems Constitutional: see HPI EENTM: see HPI Respiratory: no symptoms reported Cardiovascular: no symptoms reported Gastrointestinal: nausea Genitourinary: no symptoms reported Musculoskeletal: no symptoms reported Skin: no symptoms reported Psychiatric/Neurological: No Symptoms Reported Hematologic/Lymphatic: No Symptoms Reported Immunological/Allergic: no symptoms reported Past Qtoxwzj-Pbhfqr-Yaxnsj Hx Patient Social History 2nd Hand Smoke Exposure: No Recent Foreign Travel: No Contact w/Someone Who Travel: No Recent Hopitalizations: No Immunizations Up To Date Tetanus Booster (TDap): More than 5yrs PED Vaccines UTD: Yes Date of Pneumonia Vaccine: Mar 29, 2008 Date of Influenza Vaccine: Dec 28, 2016 Seasonal Allergies Seasonal Allergies: Yes Past Medical History Surgeries: Yes (LARRY CARPAL TUNNEL, HERNIA REPAIR, BACK SURGERY 2014; DENTAL EXTRACTIONS) Section, Orthopedic Respiratory: No Cardiac: Yes High Cholesterol Neurological: Yes Headaches /Migraines Reproductive Disorders: No Sexually Transmitted Disease: No HIV/AIDS: No Gastrointestinal: Yes Abdominal Hernia, Irritable Bowel Musculoskeletal: Yes Arthritis, Chronic Back Pain Endocrine: Yes (Type II, 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, Non-Insulin dep HEENT: Yes (DENTAL ISSUSES/EXTRACTIONS) Cancer: No Psychosocial: Yes Anxiety, Bipolar, Personality Disorder, Depression Integumentary: No Blood Disorders: No Adverse Reaction/Blood Tranf: No Family Medical History Alcoholism 19 FATHER Arthritis 19 MOTHER Cataracts 19 MOTHER Diabetes mellitus 19 FATHER 19 MOTHER FH: stroke 19 FATHER Hypercholesterolemia 19 MOTHER Hypertension 19 MOTHER No Family History of: Cardiovascular disease Glaucoma Osteoporosis Prostate cancer No Pertinent Family Hx Physical Exam Vital Signs Vital Signs - First Documented 03/21/18 11:02 Temp 98.4 Pulse 107 Resp 18 B/P (MAP) 157/81 (106) Pulse Ox 100 O2 Delivery Room Air Capillary Refill : Height, Weight, BMI Height: 5'2.00" Weight: 185lbs. 0oz. 83.792013gy; 36.6 BMI Method:Stated General Appearance: No Apparent Distress, WD/WN Eyes: Bilateral Eye Normal Inspection, Bilateral Eye PERRL, Bilateral Eye EOMI HEENT: PERRL/EOMI, TMs Normal Neck: Full Range of Motion, Normal Inspection Respiratory: No Accessory Muscle Use, No Respiratory Distress Gastrointestinal: Non Tender, Soft Extremity: Normal Capillary Refill, Normal Inspection Neurologic/Psychiatric: Alert, Oriented x3 Skin: Normal Color, Warm/Dry Progress/Results/Core Measures Suspected Sepsis SIRS Temperature: Pulse: Respiratory Rate: Laboratory Tests 03/21/18 11:06: White Blood Count 9.3 Blood Pressure / Mean: Laboratory Tests 03/21/18 11:06: Creatinine 0.60, Platelet Count 273, Total Bilirubin 0.5 Results/Orders Lab Results Laboratory Tests Test 03/21/18 11:06 03/21/18 11:10 03/21/18 11:11 Range/Units White Blood Count 9.3 4.3-11.0 10^3/uL Red Blood Count 5.08 4.35-5.85 10^6/uL Hemoglobin 14.4 11.5-16.0 G/DL Hematocrit 41 35-52 % Mean Corpuscular Volume 81 80-99 FL Mean Corpuscular Hemoglobin 28 25-34 PG Mean Corpuscular Hemoglobin Concent 35 32-36 G/DL Red Cell Distribution Width 13.6 10.0-14.5 % Platelet Count 273 130-400 10^3/uL Mean Platelet Volume 9.8 7.4-10.4 FL Neutrophils (%) (Auto) 71 42-75 % Lymphocytes (%) (Auto) 21 12-44 % Monocytes (%) (Auto) 7 0-12 % Eosinophils (%) (Auto) 0 0-10 % Basophils (%) (Auto) 1 0-10 % Neutrophils # (Auto) 6.6 1.8-7.8 X 10^3 Lymphocytes # (Auto) 2.0 1.0-4.0 X 10^3 Monocytes # (Auto) 0.6 0.0-1.0 X 10^3 Eosinophils # (Auto) 0.0 0.0-0.3 10^3/uL Basophils # (Auto) 0.1 0.0-0.1 10^3/uL Sodium Level 139 135-145 MMOL/L Potassium Level 3.8 3.6-5.0 MMOL/L Chloride Level 106 98-107 MMOL/L Carbon Dioxide Level 19 L 21-32 MMOL/L Anion Gap 14 5-14 MMOL/L Blood Urea Nitrogen 7 7-18 MG/DL Creatinine 0.60 0.60-1.30 MG/DL Estimat Glomerular Filtration Rate > 60 BUN/Creatinine Ratio 12 Glucose Level 187 H 70-105 MG/DL Calcium Level 9.1 8.5-10.1 MG/DL Corrected Calcium 9.0 8.5-10.1 MG/DL Total Bilirubin 0.5 0.1-1.0 MG/DL Aspartate Amino Transf (AST/SGOT) 15 5-34 U/L Alanine Aminotransferase (ALT/SGPT) 19 0-55 U/L Alkaline Phosphatase 87 40-136 U/L Total Protein 7.4 6.4-8.2 GM/DL Albumin 4.1 3.2-4.5 GM/DL Lipase 36 8-78 U/L Glucometer 183 H 70-110 MG/DL Urine Color YELLOW Urine Clarity CLEAR Urine pH 5 5-9 Urine Specific [place] 1.025 H 1.016-1.022 Urine Protein 3+ H NEGATIVE Urine Glucose (UA) 3+ H NEGATIVE Urine Ketones 3+ H NEGATIVE Urine Nitrite NEGATIVE NEGATIVE Urine Bilirubin NEGATIVE NEGATIVE Urine Urobilinogen NORMAL NORMAL MG/DL Urine Leukocyte Esterase NEGATIVE NEGATIVE Urine RBC (Auto) 1+ H NEGATIVE Urine RBC 0-2 /HPF Urine WBC 5-10 H /HPF Urine Squamous Epithelial Cells 10-25 H /HPF Urine Crystals PRESENT H /LPF Urine Amorphous Sediment FEW ES URATES H /LPF Urine Bacteria MODERATE H /HPF Urine Casts NONE /LPF Urine Mucus SMALL H /LPF Urine Culture Indicated YES My Orders Orders - SOCO JOAQUIN [employer] Cbc With Automated Diff (03/21/18 11:10) Comprehensive Metabolic Panel (03/21/18 11:10) Lipase (03/21/18 11:10) Ua Culture If Indicated (03/21/18 11:10) Iv Heplock-Insert (Order) (03/21/18 11:10) Ns Iv 1000 Ml (Sodium Chloride 0.9%) (03/21/18 11:15) Ondansetron Injection (Zofran Injectio (03/21/18 11:15) Accucheck Stat ONCE (03/21/18 11:10) Urine Culture (03/21/18 11:11) Promethazine Injection (Phenergan Injec (03/21/18 12:15) Medications Given in ED Current Medications Medications Dose Ordered Sig/Ernesto Route Start Time Stop Time Status Last Admin Dose Admin Ondansetron HCl 4 mg ONCE ONCE IVP 03/21/18 11:15 03/21/18 11:16 DC 03/21/18 11:21 4 MG Vital Signs/I&O 03/21/18 11:02 Temp 98.4 Pulse 107 Resp 18 B/P (MAP) 157/81 (106) Pulse Ox 100 O2 Delivery Room Air Capillary Refill : Departure Impression Primary Impression: Nausea and vomiting Qualified Codes: R11.2 - Nausea with vomiting, unspecified Additional Impression: Urinary tract infection Qualified Codes: N30.00 - Acute cystitis without hematuria Disposition: HOME, SELF-CARE Condition: Stable Departure-Patient Inst. Decision time for Depature: 11:33 Referrals: [facility]/ (PCP) Primary Care Physician BEVERLY TAO (Family) Primary Care Physician Patient Instructions: Nausea and Vomiting, Adult, Urinary Tract Infection, Adult (DC) Add. Discharge Instructions: 1. Drink plenty of fluids 2. Follow-up with her doctor next week 3. Antibiotics as directed. All discharge instructions reviewed with patient and /or family. Voiced understanding. Scripts Cefuroxime Axetil (Cefuroxime) 250 Mg Tablet 250 MG PO BID, #10 TAB Prov: SOCO JOAQUIN [employer] 03/21/18 Promethazine HCl (Promethazine Tablet) 25 Mg Tablet 25 MG PO Q6H PRN for NAUSEA/VOMITING, #14 TAB Prov: SOCO JOAQUIN [employer] 03/21/18 SOCO JO[employer]QUIN [employer] Mar 21, 2018 11:14
[2018-03-21] MEDS ORDERED: ONDANSETRON 4 MG/2 ML (SDV) Z0FRAN IVP ONE (11:15)
[2018-03-21] MEDS ORDERED: NS IV 1000 ML 1,000 ML IV SCH (11:15)
[2018-03-21 11:16] LABS: BILIRUBIN,URINE NEGATIVE (NEGATIVE); CLARITY,URINE CLEAR; COLOR,URINE YELLOW; GLUCOSE, URINE (UA) 3+ (NEGATIVE); KETONES,URINE 3+ (NEGATIVE); LEUKOCYTE ESTERASE ,URINE NEGATIVE (NEGATIVE); NITRITE,URINE NEGATIVE (NEGATIVE); PH,URINE 5 (5-9); PROTEIN,URINE 3+ (NEGATIVE); UROBILINOGEN,URINE NORMAL (NORMAL)
[2018-03-21 11:24] LABS: RBC,URINE 0-2 /HPF
[2018-03-21 11:25] LABS: AMORPHOUS SEDIMENT,UR FEW AMOR URATES /LPF; BACTERIA,URINE MODERATE /HPF
[2018-03-21 11:30] LABS: ALANINE AMINOTRANSFERASE 19 U/L (0-55); ALBUMIN 4.1 GM/DL (3.2-4.5); ALKALINE PHOSPHATASE 87 U/L (40-136); BILIRUBIN,TOTAL 0.5 MG/DL (0.1-1.0); BUN/CREATININE RATIO 12; CALCIUM 9.1 MG/DL (8.5-10.1); CARBON DIOXIDE 19 MMOL/L (21-32); CHLORIDE 106 MMOL/L (98-107); GFR ESTIMATED > 60; GLUCOSE 187 MG/DL (70-105); LIPASE 36 U/L (8-78); POTASSIUM 3.8 MMOL/L (3.6-5.0); SODIUM 139 MMOL/L (135-145); TOTAL PROTEIN 7.4 GM/DL (6.4-8.2)
[2018-03-21] MEDS ORDERED: PROM25TA14 PO (11:38)
[2018-03-21] MEDS ORDERED: PROMETHAZINE INJ 25 MG/ML (PHENERGAN) AMP IVP ONE (12:15)
[2018-03-21] MEDS ORDERED: CEFU250T80 PO (12:15)
[2018-03-21 12:29] VITALS: BP 139/79
== END 2018-03-21 12:29 | disposition home or self-care (01) ==
LOC: EDUNIT# 10:24 → ER 10:25
DX: N39.0 Urinary tract infection, site not specified (principal); E78.00 Pure hypercholesterolemia, unspecified; G43.909 Migraine, unspecified, not intractable, without status migrainosus; E11.9 Type 2 diabetes mellitus without complications; F41.9 Anxiety disorder, unspecified; F31.9 Bipolar disorder, unspecified; Z82.49 Family history of ischemic heart disease and other diseases of the circulatory system; Z87.19 Personal history of other diseases of the digestive system; Z88.0 Allergy status to penicillin; Z88.8 Allergy status to other drugs, medicaments and biological substances; Z79.82 Long term (current) use of aspirin; Z98.890 Other specified postprocedural states
CPT/HCPCS: 36415; 80053; 81000; 82962; 83690; 85025; 87077; 87088

== ENCOUNTER 2018-06-14 13:58 | Emergency (ER) | payer SELFPAY ==
[~2018-06-14] VITALS: Ht 157.5 cm; Wt 81.2 kg
[~2018-06-14 13:58] MED LIST changes: +CEFU250T80 PO; +METR500T PO; +PROM25TA14 PO
--- OUTSIDE RECORDS SUMMARY | 2018-06-14 14:14 | XMS REPORT ---
Author Author BEVERLY TAO Organization [facility] Address [address] [place] [address] Care Team Providers Care Labor Service Representative Name Role Phone BEVERLY TAO Unavailable PROBLEMS Type Condition ICD9-CM Code WVC30-[id number] Code Onset Dates Condition Status SNOMED Code Problem Type 2 diabetes mellitus with complication E11.8 Active 608186137 Problem Acute bilateral low back pain with right-sided sciatica M54.41 Active 989652572 Problem Hyperlipidemia, unspecified E78.5 Active 73833210 Problem Hypertriglyceridemia E78.1 Active 182143203 Problem Obesity, unspecified 278.00 Active 235039277 Problem Other chronic pain G89.29 Active 68891959 Problem Eye exam normal Z01.00 Active 797138569 Problem Post laminectomy syndrome M96.1 Active 31999193 Problem senior living current use of insulin Z79.4 Active 434664687 Problem New daily persistent headache G44.52 Active 080263026 Problem Lumbago with sciatica, left side M54.42 Active 866232844 Problem Type 2 diabetes mellitus with hyperglycemia E11.65 Active 00857416 Problem Extreme poverty Z59.5 Active 57236491 Problem 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 Active 02202314 Problem Hyperlipidemia 272.4 Active 79220162 Problem Bipolar disorder, in partial remission, most recent episode manic F31.73 Active 36959694 Problem Irritable bowel syndrome with diarrhea K58.0 Active 323478093 Problem Lumbar radiculopathy M54.16 Active 972394323 Problem Non compliance with medical treatment Z91.19 Active 1971487 Problem Bipolar 1 disorder F31.9 Active 320209531 Problem Diabetes E11.9 Active 712004312 Problem 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 Z79.891 Active 657677454 ALLERGIES Substance Reaction Event Type Date Status Zithromax Chest pain Drug Allergy Feb, Active Prednisone elevated blood sugars Drug Allergy Feb, Active ENCOUNTERS Encounter Location Date Diagnosis [facility] [id number] [place] [address] 98774- 4976 Mar, [facility] [address] 74482- 2876 Mar, [facility] [id number] [place] [address] 00287- 6415 Mar, [facility] [address] 73309- 0345 Feb, [facility] [address] 45384- 1241 Feb, Myalgia M79.10 and Nausea R11.0 [facility] [address] 12948- 9662 Feb, Bipolar 1 disorder F31.9 ; 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 and Extreme poverty Z59.5 [facility] [address] 33757- 4462 Feb, [facility] [id number] [place] [address] 88900- 7728 Feb, Diabetes E11.9 ; Hyperglycemia R73.9 and Diarrhea, unspecified R19.7 [facility] [id number] [place] [address] 90881- 0584 03 Feb, 2018 Diarrhea, unspecified type R19.7 ; Abdominal pain R10.9 and Encounter for immunization Z23 [facility] [id number] [place] [address] 09216- 6934 Jan, Bipolar 1 disorder F31.9 ; 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 and Extreme poverty Z59.5 [facility] [id number] [place] [address] 44972- 0815 Dec, Bipolar 1 disorder F31.9 ; 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 and Extreme poverty Z59.5 [facility] [address] 77781- 4041 Nov, [facility] [id number] [place] [address] 48965- 9458 Nov, Hypertriglyceridemia E78.1 [facility] [address] 05216- 0190 20 Nov, 2017 Bipolar 1 disorder F31.9 ; 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9 ; 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 and Extreme poverty Z59.5 [facility] [id number] [place] [address] 83446- 6167 10 Nov, 2017 Type 2 diabetes mellitus with complication E11.8 ; Pain of left upper arm M79.622 ; Pain in right upper arm M79.621 ; Hyperglycemia R73.9 ; Lumbago with sciatica, left side M54.42 and Other chronic pain G89.29 [facility] [address] [place] [address] 68091- 8570 15 Oct, 2017 Bipolar 1 disorder F31.9 ; 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 and Extreme poverty Z59.5 [facility] [id number] [place] [address] 39532- 1858 Oct, Type 2 diabetes mellitus with hyperglycemia E11.65 ; 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.4 and Other acute gastritis without hemorrhage K29.00 [facility] [id number] [place] [address] 49120- 4701 Oct, Bipolar 1 disorder F31.9 ; 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 and Extreme poverty Z59.5 [facility] [id number] [place] [address] 02142- 6793 Sep, Diarrhea, unspecified R19.7 and Vomiting, unspecified R11.10 [facility] [id number] [place] [address] 39338- 3557 Aug, Type 2 diabetes mellitus with complication E11.8 [facility] [id number] [place] [address] 28478- 6602 Aug, [facility] [id number] [place] [address] 15534- 5194 Aug, Bipolar 1 disorder F31.9 ; 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 and Extreme poverty Z59.5 [facility] [id number] [place] [address] 45462- 2383 Aug, 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 and Bipolar disorder, in partial remission, most recent episode manic F31.73 [facility] [id number] [place] [address] 29529- 7648 Aug, Bipolar 1 disorder F31.9 [facility] [id number] [place] [address] 91390- 6266 Aug, [facility] [id number] [place] [address] 52641- 4339 Aug, [facility] [id number] [place] [address] 42656- 4011 Aug, Bipolar 1 disorder F31.9 ; 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 and Extreme poverty Z59.5 [facility] [address] [place] [address] 55452- 3308 July, Type 2 diabetes mellitus with complication E11.8 [facility] [id number] [place] [address] 23965- 0066 July, Bipolar 1 disorder F31.9 ; 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 and Extreme poverty Z59.5 [facility] [id number] [place] [address] 3800 Jun, Bipolar 1 disorder F31.9 ; 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 and Extreme poverty Z59.5 [facility] [id number] [place] [address] 45480- 9622 Jun, Bipolar 1 disorder F31.9 ; 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 and Extreme poverty Z59.5 [facility] [id number] [place] [address]- 8828 Jun, Bipolar 1 disorder F31.9 ; 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 and Extreme poverty Z59.5 [facility] [id number] [place] [address] 64821- 1486 May, Urinary tract infection without hematuria, site unspecified N39.0 [facility] [id number] [place] [address] 58176- 6780 May, Bipolar 1 disorder F31.9 ; 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 and Extreme poverty Z59.5 [facility] [id number] [place] [address] 8373 28 Apr, 2017 Diabetes E11.9 and Breast cancer screening Z12.31 [facility] [id number] [place] [address] 296238- 8392 Apr, Bipolar 1 disorder F31.9 and 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 [facility] [address] [place] [address] 0291 Mar, Bipolar 1 disorder F31.9 ; 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 and Extreme poverty Z59.5 [facility] [address] [place] [address] 99188- 7882 Mar, New daily persistent headache G44.52 ; Leg pain 729.5 and History of carpal tunnel release Z98.890 [facility] [id number] [place] [address] 10255- 5744 Mar, Hyperlipidemia, unspecified E78.5 [facility] [id number] [place] [address] 10639- 6867 Mar, Bipolar 1 disorder F31.9 ; 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 and Extreme poverty Z59.5 [facility] [address] 19714- 7844 Feb, Bipolar 1 disorder F31.9 ; 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 and Extreme poverty Z59.5 [facility] [address] 380639- 7390 Feb, Diabetes E11.9 [facility] [id number] [place] [address] 21779- 5426 Feb, Viral syndrome B34.[address] 92970- 3269 Jan, Other viral agents as the cause of diseases classified elsewhere B97.89 and Acute upper respiratory infection, unspecified J06.9 [facility] [id number] [place] [address] 76372- 8122 Jan, Bipolar 1 disorder F31.9 and 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 [facility] [id number] [place] [address] 29113- 8994 Jan, Bipolar 1 disorder F31.9 ; 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 and Extreme poverty Z59.5 [facility] [id number] [place] [address] 43448- 0734 Dec, Diabetes E11.9 [facility] [id number] [place] [address] 09610- 7945 Dec, Diabetes E11.9 and Encounter for immunization Z23 [facility] [id number] [place] [address] 56013- 3819 Dec, Bipolar 1 disorder F31.9 ; 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 and Extreme poverty Z59.5 [facility] [address] [address]- 4895 Dec, Back pain M54.9 [facility] [address] [address]- 3812 07 Nov, 2016 [facility] [address] [place] [address] 94895- 6716 Nov, Bipolar 1 disorder F31.9 ; 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 and Extreme poverty Z59.5 [facility] [address] [place] [address] 16119- 4006 05 Nov, 2016 Bipolar 1 disorder F31.9 ; 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 and Extreme poverty Z59.5 [facility] [address] [place] [address] 49668- 3358 Oct, 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 and Bipolar 1 disorder F31.9 [facility] [address] [place] [address] 47187- 7004 Oct, Bipolar 1 disorder F31.9 ; 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 and Extreme poverty Z59.5 [facility] [facility] [address] [place] [address] 10752- 6810 Oct, Back pain M54.9 [facility] [address] [place] [address] 47552- 6572 Oct, 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 and Type 2 diabetes mellitus with complication E11.8 [facility] [address] [place] [address] 57890- 0036 Sep, Bipolar 1 disorder F31.9 ; 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 and Extreme poverty Z59.5 [facility] [address] [place] [address] 19776- 1701 Sep, 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 and Bipolar 1 disorder F31.9 [facility] [address] [place] [address] 96829- 5642 Sep, Bipolar 1 disorder F31.9 ; 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 and Extreme poverty Z59.5 [facility] [id number] [place] [address] 41208- 9948 Aug, Diabetes E11.9 ; Hyperlipidemia, unspecified E78.5 and Lumbar radiculopathy M54.16 [facility] [id number] [place] [address] 57318- 8114 Aug, Bipolar 1 disorder F31.9 ; 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 and Extreme poverty Z59.5 [facility] [id number] [place] [address] 21059- 7481 Aug, [facility] [id number] [place] [address] 92591- 2668 Aug, [facility] [id number] [place] [address] 66025- 7202 Aug, [facility] [id number] [place] [address] 22238- 4882 July, [facility] [address] 26316- 0525 July, Acute bilateral low back pain with right-sided sciatica M54.41 [facility] [id number] [place] [address] 32190- 8099 July, Bipolar 1 disorder F31.9 ; 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 and Extreme poverty Z59.5 [facility] [id number] [place] [address] 36751- 9361 July, Back pain M54.9 and Diabetes E11.9 [facility] [id number] [place] [address] 14188- 8416 Jun, Bipolar 1 disorder F31.9 ; 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 and Extreme poverty Z59.5 [facility] [id number] [place] [address] 15706- 5841 Jun, Bipolar 1 disorder F31.9 ; 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 and Extreme poverty Z59.5 [facility] [id number] [place] [address] 07944- 7417 May, Visit for pelvic exam Z01.419 ; Acute vaginitis N76.0 and Diabetes E11.9 [facility] [id number] [place] [address] 94969- 6246 May, Bipolar 1 disorder F31.9 ; 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 and Extreme poverty Z59.5 [facility] [id number] [place] [address] 58547- 8125 May, [facility] [address] 69954- 2834 May, [facility] [address] 83844- 9626 May, Bipolar 1 disorder F31.9 ; 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 and Extreme poverty Z59.5 [facility] [id number] [place] [address] 30912- 3502 May, Hyperlipidemia, unspecified E78.5 [facility] [id number] [place] [address] 43867- 2824 Apr, Breast cancer screening Z12.39 [facility] [id number] [place] [address] 42980- 5790 Mar, [facility] [address] 76627- 0666 Mar, Bipolar disorder, current episode mixed, unspecified F31.60 [facility] [address] 78508- 5458 Mar, Bipolar 1 disorder F31.9 ; 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 and Extreme poverty Z59.5 [facility] [id number] [place] [address] 86373- 2605 Feb, Acute nasopharyngitis J00 [facility] [id number] [place] [address] 23549- 3717 27 Feb, 2016 Dental examination Z01.20 [facility] [id number] [place] [address] 10050- 6473 21 Feb, 2016 Dental cavities K02.9 and Chronic periodontitis, unspecified K05.30 [facility] [address] 93085- 0254 13 Feb, 2016 Low back pain M54.5 and Extreme poverty Z59.5 [facility] [address] 41254- 9124 08 Feb, 2016 [facility] [address] 97987- 3719 05 Feb, 2016 Routine gynecological examination V72.31 ; Breast cancer screening Z12.39 and Herpes simplex type 1 infection B00.9 [facility] [address] 11456- 9447 02 Feb, 2016 Diabetes E11.9 [facility] [address] 34579- 8430 Feb, Encounter for dental examination and cleaning without abnormal findings Z01.20 [facility] [id number] [place] [address] 20671- 3121 22 Jan, 2016 Hyperlipidemia, unspecified E78.5 [facility] [id number] [place] [address] 67085- 6892 Jan, Bipolar 1 disorder F31.9 ; 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 and Extreme poverty Z59.5 [facility] [id number] [place] [address] 53218- 0111 18 Jan, 2016 Diabetes E11.9 [facility] [address] 31445- 9722 17 Jan, 2016 Diabetes E11.9 [facility] [id number] [place] [address] 32928- 2300 14 Dec, 2015 Bipolar 1 disorder F31.9 ; 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 and Extreme poverty Z59.5 [facility] [facility] [id number] [place] [address] 27564- 6845 13 Dec, 2015 Bipolar disorder, current episode mixed, unspecified F31.60 and 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 [facility] [facility] [id number] [place] [address] 25661- 0564 16 Nov, 2015 Bipolar 1 disorder F31.9 ; 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 ; Extreme poverty Z59.5 and Non compliance with medical treatment Z91.19 [facility] [id number] [place] [address] 89734- 0504 Oct, [facility] [id number] [place] [address] 87314- 0225 29 Oct, 2015 Dental caries K02.9 [facility] [id number] [place] [address] 59970- 2203 Oct, Low back pain M54.5 and Other chronic pain G89.29 [facility] [id number] [place] [address] 10747- 7819 24 Oct, 2015 Bipolar 1 disorder F31.9 ; 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 ; Extreme poverty Z59.5 and Non compliance with medical treatment Z91.19 [facility] [id number] [place] [address] 54568- 4360 Oct, [facility] [id number] [place] [address] 28824- 3313 Oct, [facility] [id number] [place] [address] 51062- 6553 Oct, Dental examination Z01.20 [facility] [id number] [place] [address] 06313- 7607 10 Oct, 2015 Bipolar 1 disorder F31.9 ; 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 ; Extreme poverty Z59.5 and Non compliance with medical treatment Z91.19 [facility] [address] [place] [address]- 2547 Oct, [facility] [address] [address]- 3247 Sep, Type 2 diabetes mellitus with complication E11.8 [facility] [address] [address]- 9611 Sep, Bipolar disorder, current episode mixed, unspecified F31.60 [facility] [id number] [place] [address] 22373- 1591 Sep, Bipolar disorder, current episode mixed, unspecified F31.60 [facility] [address] [place] [address] 06552- 7037 Sep, Bipolar disorder, in partial remission, most recent episode manic F31.73 ; 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 ; Extreme poverty Z59.5 and Non compliance with medical treatment Z91.19 [facility] [address] [address]- 2284 Aug, Bipolar disorder, in partial remission, most recent episode manic F31.73 ; 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 ; Extreme poverty Z59.5 and Non compliance with medical treatment Z91.19 [facility] [address] [place] [address] 01160- 8621 Aug, Bipolar disorder, in partial remission, most recent episode manic F31.73 ; 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 ; Extreme poverty Z59.5 and Non compliance with medical treatment Z91.19 [facility] [id number] [address]- 2654 Aug, [facility] [address] [place] [address] 06852- 6248 July, Bipolar disorder, in partial remission, most recent episode manic F31.73 ; 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 ; Extreme poverty Z59.5 and Non compliance with medical treatment Z91.19 [facility] [address] [address]- 3313 July, Bipolar disorder, current episode mixed, unspecified F31.60 [facility] [address] [place] [address] 79510- 0021 July, Bipolar disorder, in partial remission, most recent episode manic F31.73 ; 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 ; Extreme poverty Z59.5 and Non compliance with medical treatment Z91.19 [facility] [id number] [place] [address] 46464- 1958 July, 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 Z79.891 and Chronic pain G89.29 [facility] [id number] [place] [address] 21725- 6185 Jun, 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 Z79.891 and Bipolar 1 disorder F31.9 [facility] [id number] [place] [address] 74714- 3622 Jun, [facility] [id number] [place] [address] 63423- 0186 Jun, [facility] [id number] [place] [address] 36243- 7165 Jun, [facility] [id number] [place] [address] 52408- 1573 Jun, Bipolar disorder, in partial remission, most recent episode manic F31.73 ; 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 and Non compliance with medical treatment Z91.19 [facility] [id number] [place] [address] 11526- 2794 May, Bipolar disorder, in partial remission, most recent episode manic F31.73 ; 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 and Non compliance with medical treatment Z91.19 [facility] [id number] [place] [address] 39876- 2652 May, Bipolar disorder, in partial remission, most recent episode manic F31.73 [facility] [id number] [place] [address] 11205- 2168 May, Diabetes E11.9 and Chronic pain G89.29 [facility] [id number] [place] [address] 70419- 2486 May, [facility] [id number] [place] [address] 99142- 7909 May, Bipolar disorder, in partial remission, most recent episode manic F31.73 ; Non compliance with medical treatment Z91.19 and 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 [facility] [id number] [place] [address] 81145- 8229 May, Type 2 diabetes mellitus with complication E11.8 and Back pain M54.9 [facility] [id number] [place] [address] 75146- 1881 May, Bipolar disorder, in partial remission, most recent episode manic F31.73 and 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 [facility] [id number] [place] [address] 47093- 7260 Apr, [facility] [id number] [place] [address] 17444- 1522 Apr, [facility] [id number] [place] [address] 81943- 8642 Apr, [facility] [id number] [place] [address] 98163- 7516 Apr, Diabetes E11.9 ; Irritable bowel syndrome with diarrhea K58.0 and Lumbar radiculopathy M54.16 [facility] [id number] [place] [address] 56320- 3068 Apr, Breast screening Z12.39 [place] [id number] [place] [address] 73868- 1367 Apr, Bipolar disorder, in partial remission, most recent episode manic F31.73 ; Non compliance with medical treatment Z91.19 and 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 [facility] [id number] [place] [address] 19524- 1716 Mar, Edema, unspecified type R60.9 and Type 2 diabetes mellitus with complication E11.8 [facility] [id number] [place] [address]- 6092 Mar, Bipolar disorder, in partial remission, most recent episode manic F31.73 ; Non compliance with medical treatment Z91.19 ; 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 and Extreme poverty Z59.5 [facility] [address] [place] [id number] [place] [address] 29134- 8786 Mar, Bipolar disorder, current episode mixed, unspecified F31.60 ; 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 ; Extreme poverty Z59.5 and Generalized anxiety disorder F41.1 [place] [address] [id number] [place] [address] 07338- 6917 12 Mar, 2015 Bipolar disorder, in partial remission, most recent episode manic F31.73 ; 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 and Extreme poverty Z59.5 [place] [id number] [place] [address] 09811- 6700 Feb, Bipolar disorder, in partial remission, most recent episode manic F31.73 ; 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 and Extreme poverty Z59.5 [place] [id number] [place] [address] 82501- 1410 Feb, Bipolar disorder, in partial remission, most recent episode manic F31.73 ; 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 and Extreme poverty Z59.5 [place] [id number] [place] [address] 85010- 5466 Feb, [place] [id number] [place] [address] 56637- 8044 Jan, Type 2 diabetes mellitus with complication E11.8 and Petechiae R23.3 [place] [id number] [place] [address] 01075- 9397 Jan, Type 2 diabetes mellitus with complication E11.8 ; Edema, unspecified R60.9 ; Petechiae R23.3 and Diabetes E11.9 [place] [id number] [place] [address] 23422- 7597 Jan, Bipolar disorder, in partial remission, most recent episode manic F31.73 ; 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 and Extreme poverty Z59.5 [place] [id number] [place] [address] 05263- 9973 Jan, Bipolar disorder, in partial remission, most recent episode manic F31.73 ; 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 and Extreme poverty Z59.5 [place] [address] 93174- 4497 Dec, Bipolar disorder, in partial remission, most recent episode manic F31.73 [place] [address] 38658- 6663 Dec, Edema, due to unspecified malnutrition type, unspecified edema R60.9 and Essential hypertension I10 [place] [address] 64093- 9059 Dec, Bipolar disorder, in partial remission, most recent episode manic F31.73 [place] [address] 51274- 3977 Nov, Bipolar I disorder, most recent episode (or current) mixed, unspecified 296.60 [place] [id number] [place] [address] 65816- 5158 Nov, Stress incontinence, female 625.6 ; Back pain 724.5 and Leg pain 729.5 [place] [id number] [place] [address] 67621- 4768 18 Nov, 2014 Generalized anxiety disorder 300.02 and Bipolar II disorder 296.89 [place] [address] 09014- 7126 Nov, Bipolar I disorder, most recent episode (or current) mixed, unspecified 296.60 [place] [address] 96739- 7992 Oct, [facility] [address] [address] 4897 Oct, [facility] [id number] [place] [address] 65469- 0467 Oct, [facility] [id number] [address]- 7741 Oct, Bipolar I disorder, most recent episode (or current) mixed, unspecified 296.60 [facility] [id number] [place] [address] 26454- 6064 Sep, Diabetes 250.00 [facility] [id number] [place] [address] 01680- 0711 Sep, Bipolar I disorder, most recent episode (or current) mixed, unspecified 296.60 [facility] [id number] [place] [address] 21350- 9195 Sep, [facility] [address] [address]- 4188 Sep, [facility] [id number] [place] [address] 96786- 0563 Sep, Bipolar I disorder, most recent episode (or current) mixed, unspecified 296.60 [facility] [address] [address]- 5629 Sep, Bipolar I disorder, most recent episode (or current) mixed, unspecified 296.60 [facility] [address] [address]- 2700 Sep, [facility] [id number] [place] [address] 28460- 4872 Sep, Anxiety 300.00 ; Diabetes 250.00 and Hyperlipidemia 272.4 [facility] [address] [address]- 7970 Aug, [facility] [id number] [place] [address] 30418- 1406 Aug, [facility] [address] [address]- 7465 Aug, [facility] [id number] [place] [address] 25355- 1246 Aug, Bipolar I disorder, most recent episode (or current) mixed, unspecified 296.60 [facility] [id number] [place] [address] 715566- 9811 Aug, Generalized anxiety disorder 300.02 and Bipolar II disorder 296.89 [facility] [id number] [place] [address] 494389- 4709 July, Bipolar I disorder, most recent episode (or current) mixed, unspecified 296.60 [facility] [address] 1202 July, Cough 786.2 [facility] [id number] [place] [address] 192519- 8527 July, Bipolar I disorder, most recent episode (or current) mixed, unspecified 296.60 [facility] [id number] [place] [address] 347313- 3710 Jun, Diabetes 250.00 [facility] [address] 6246 Jun, [facility] [address] [address]- 0500 Jun, [facility] [address] [address]- 4342 May, [facility] [id number] [address]- 7412 May, [facility] [address] [address]- 6886 May, [facility] [address] 6895 May, [facility] [place] [facility] [address] [id number] [place] [address]- 0894 May, [facility] [place] [facility] [address] [id number] [place] [address]- 4085 May, [facility] [place] [facility] [address] [id number] [place] [address]- 3050 Apr, [facility] [place] [facility] [address] [id number] [place] [address]- 9792 Apr, [facility] [place] [facility] [address] [id number] [place] [address]- 3102 Apr, [facility] [place] [facility] [address] [id number] [place] [address]- 5871 Apr, [facility] [place] [facility] [address] [id number] [place] [address]- 9620 Apr, [facility] [place] [facility] [address] [id number] [place] [address]- 2759 Apr, [facility] [place] [facility] [address] [id number] [place] [address]- 3227 Apr, [facility] [place] [facility] [address] [id number] [place] [address]- 8258 Apr, [facility] [place] [facility] [address] [id number] [place] [address]- 4219 Mar, [facility] [place] [facility] [address] [id number] [place] [address]- 4534 Mar, [facility] [place] [facility] [address] [id number] [place] [address]- 0314 Mar, [facility] [place] [facility] [address] [id number] [place] [address]- 1707 Mar, [facility] [place] [facility] [address] [id number] [place] [address]- 1425 Mar, [facility] [place] [facility] [address] [id number] [place] [address]- 4784 Mar, [facility] [address] [id number] [place] [address]- 0510 Mar, [facility] [place] [facility] [address] [id number] [place] [address]- 6626 Mar, [facility] [address] [id number] [place] [address]- 7460 Feb, [facility] [place] [facility] [address] [id number] [place] [address]- 3514 Feb, [facility] [place] [facility] [address] [id number] [place] [address]- 4048 Feb, [facility] [place] [facility] [address] [id number] [place] [address]- 6150 Feb, [facility] [place] [facility] [address] [id number] [place] [address]- 2337 Feb, [facility] [address] [id number] [place] [address]- 3107 Feb, [facility] [place] [facility] [address] [id number] [place] [address]- 0642 Feb, [facility] [place] [facility] [address] [id number] [place] [address]- 3432 Feb, [facility] [place] [facility] [address] [id number] [place] [address]- 1857 Feb, [facility] [place] [facility] [address] [id number] [place] 6283 Feb, [facility] [place] [facility] [address] [id number] [place] [address]- 0392 Jan, [facility] [place] [facility] [address] [id number] [place] [address]- 5336 Jan, [facility] [place] [facility] [address] [id number] [place] [address]- 1594 Jan, [facility] [place] [facility] [address] [id number] [place] [address]- 7745 Jan, [facility] [place] [facility] [address] [id number] [place] [address]- 8529 Jan, [facility] [place] [facility] [address] [id number] [place] [address]- 1121 Jan, [facility] [place] [facility] [address] [id number] [place] [address]- 2196 Jan, [facility] [place] [facility] [address] [id number] [place] [address]- 3096 Jan, [facility] [place] [facility] [address] [id number] [place] [address]- 9198 Jan, [facility] [place] [facility] [address] [id number] [place] [address]- 9036 Jan, [facility] [place] [facility] [address] [id number] [place] [address]- 6409 Jan, [facility] [place] [facility] [address] [id number] [place] [address]- 1096 Jan, [facility] [place] [facility] [address] [id number] [address]- 8790 Jan, [facility] [place] [facility] [address] [id number] [address]- 0862 Jan, [facility] [place] [facility] [address] [id number] [address]- 3887 Jan, [facility] [place] [facility] [address] [id number] [place] [address]- 2513 Dec, [facility] [place] [facility] [address] [id number] [place] [address]- 6800 Dec, [facility] [place] [facility] [address] [id number] [place] [address]- 6073 16 Dec, 2013 [facility] [place] [facility] [address] [id number] [place] [address]- 5734 16 Dec, 2013 [facility] [place] [facility] [address] [id number] [place] [address]- 7183 09 Dec, 2013 [facility] [place] [facility] [address] [id number] [place] [address]- 7307 09 Dec, 2013 [facility] [place] [facility] [address] [id number] [place] [address]- 3461 07 Dec, 2013 [facility] [place] [facility] [address] [id number] [place] [address]- 3094 07 Dec, 2013 [facility] [place] [facility] [address] [id number] [place] [address]- 9202 25 Sep, 2013 [facility] [place] [facility] [address] [id number] [place] [address]- 9204 25 Sep, 2013 [facility] [place] [facility] [address] [id number] [place] [address]- 6530 10 Sep, 2013 [facility] [place] [facility] [address] [id number] [place] [address]- 9464 10 Sep, 2013 [facility] [place] [facility] [address] [id number] [place] [address]- 2738 08 Sep, 2013 [facility] [place] [facility] [address] [id number] [place] [address]- 7636 08 Sep, 2013 [facility] [place] [facility] [address] [id number] [place] [address]- 4642 08 Sep, 2013 [facility] [place] [facility] [address] [id number] [place] [address]- 2542 08 Sep, 2013 [facility] [place] [facility] [address] [id number] [place] [address]- 2944 08 Sep, 2013 [facility] [place] [facility] [address] [id number] [place] [address]- 1854 08 Sep, 2013 [facility] [place] [facility] [address] [id number] [place] [address]- 2716 04 Sep, 2013 [facility] [place] [facility] [address] [id number] [place] [address]- 6713 04 Nov, 2013 [facility] [place] [facility] [address] [id number] [place] [address]- 9676 Nov, [facility] [place] [facility] [address] [id number] [place] [address]- 8991 Nov, [facility] [place] [facility] [address] [id number] [place] [address]- 4747 Nov, [facility] [place] [facility] [address] [id number] [place] [address]- 6357 Oct, [facility] [place] [facility] [address] [id number] [place] [address]- 3715 Oct, [facility] [place] [facility] [address] [id number] [place] [address]- 7572 Oct, [facility] [place] [facility] [address] [id number] [place] [address]- 5117 Oct, [facility] [place] [facility] [address] [id number] [place] [address]- 4473 Oct, [facility] [place] [facility] [address] [id number] [place] [address]- 5537 Oct, [facility] [place] [facility] [address] [id number] [place] [address]- 7060 Oct, [facility] [place] [facility] [address] [id number] [place] [address]- 7301 Oct, [facility] [place] [facility] [address] [id number] [place] [address]- 1813 Oct, [facility] [place] [facility] [address] [id number] [place] [address]- 4761 Oct, [facility] [place] [facility] [address] [id number] [place] [address]- 1293 Oct, [facility] [place] [facility] [address] [id number] [place] [address]- 3958 Oct, [facility] [place] [facility] [address] [id number] [place] [address]- 0009 Oct, [facility] [place] [facility] [address] [id number] [place] [address]- 3028 Oct, [facility] [place] [facility] [address] [id number] [place] [address]- 9292 Sep, [facility] [place] [facility] [address] [id number] [place] [address]- 5936 Sep, [facility] [place] [facility] [address] [id number] [place] [address]- 9323 Sep, [facility] [place] [facility] [address] [id number] [place] [address]- 6113 Sep, [facility] [place] [facility] [address] [id number] [place] [address]- 1910 Sep, [facility] [place] [facility] [address] [id number] [place] [address]- 2712 Sep, [facility] [place] [facility] [address] [id number] [place] [address]- 3879 Sep, [facility] [place] [facility] [address] [id number] [place] [address]- 7805 Sep, [facility] [place] [facility] [address] [id number] [place] [address]- 7912 Aug, [facility] [place] [facility] [address] [id number] [place] [address]- 1262 Aug, [facility] [place] [facility] [address] [id number] [place] [address]- 7395 Aug, [facility] [place] [facility] [address] [id number] [place] [address]- 4119 Aug, [facility] [place] [facility] [address] [id number] [place] [address]- 7165 Aug, [facility] [place] [facility] [address] [id number] [place] [address]- 9988 Aug, [facility] [address] [id number] [place] [address]- 4084 Aug, [facility] [address] [id number] [place] [address]- 9276 Aug, [facility] [address] [id number] [place] [address]- 5071 July, [facility] [address] [id number] [place] [address]- 0536 July, [facility] [address] [id number] [place] [address]- 9536 July, [facility] [address] [id number] [place] [address]- 0789 July, [facility] [address] [id number] [place] [address]- 9601 July, [facility] [address] [id number] [place] [address]- 0094 July, [facility] [address] [id number] [place] [address]- 0634 July, [facility] [address] [id number] [place] [address]- 9777 July, [facility] [address] [id number] [place] [address]- 7352 Jun, [facility] [place] [facility] [address] [id number] [place] [address]- 9845 Jun, [facility] [place] [facility] [address] [id number] [place] [address]- 5104 Jun, [facility] [place] [facility] [address] [id number] [place] [address]- 7192 Jun, [facility] [place] [facility] [address] [id number] [place] [address]- 5669 Jun, [facility] [place] [facility] [address] [id number] [place] [address]- 8533 Jun, [facility] [place] [facility] [address] [id number] [place] [address]- 9456 Jun, [facility] [place] [facility] [address] [id number] [place] [address]- 5228 Jun, [facility] [place] [facility] [address] [id number] [place] [address]- 7695 Jun, [facility] [place] [facility] [address] [id number] [place] [address]- 6395 Jun, [facility] [place] [facility] [address] [id number] [place] [address]- 5298 Jun, [facility] [place] [facility] [address] [id number] [place] [address]- 2472 Jun, [facility] [place] [facility] [address] [id number] [place] [address]- 9380 May, [facility] [place] [facility] [address] [id number] [place] [address]- 8565 May, [facility] [place] [facility] [address] [id number] [place] [address]- 0348 May, [facility] [place] [facility] [address] [id number] [place] [address]- 5170 May, [facility] [place] [facility] [address] [id number] [place] [address]- 0184 May, [facility] [place] [facility] [address] [id number] [place] [address]- 1139 May, [facility] [place] [facility] [address] [id number] [place] [address]- 6326 May, [facility] [place] [facility] [address] [id number] [place] 4524 May, [facility] [place] [facility] [address] [id number] [place] [address]- 6080 May, [facility] [place] [facility] [address] [id number] [place] [address]- 8256 May, [facility] [place] [facility] [address] [id number] [place] [address]- 0619 May, [facility] [place] [facility] [address] [facility] [id number] [place] [address]- 5366 May, [facility] [place] [facility] [address] [id number] [place] [address]- 2734 May, [facility] [place] [facility] [address] [id number] [place] [address]- 7894 May, [facility] [place] [facility] [address] [id number] [place] [address]- 4254 Apr, [facility] [place] [facility] [address] [facility] [id number] [place] [address]- 9894 Apr, [facility] [place] [facility] [address] [facility] [id number] [place] [address]- 0804 Apr, [facility] [place] [facility] [address] [facility] [id number] [place] [address]- 9019 Apr, [facility] [place] [facility] [address] [facility] [id number] [place] [address]- 4463 Apr, [facility] [place] [facility] [address] [facility] [id number] [place] [address]- 2699 Apr, [facility] [place] [facility] [address] [facility] [id number] [place] [address]- 7269 Mar, [facility] [place] [facility] [address] [id number] [place] [address]- 4659 Mar, [facility] [place] [facility] [address] [facility] [id number] [place] [address]- 2949 Mar, [facility] [place] [facility] [address] [facility] [place] [id number] [place] [address] Mar, [facility] [place] [facility] [address] [id number] [place] [address] Mar, [facility] [address] [id number] [place] [address]- [address] Mar, [facility] [place] [facility] [address] [id number] [place] [address]- [address] Mar, [facility] [address] [id number] [place] [address]- [address] Mar, [facility] [address] [id number] [place] [address] Mar, [facility] [address] [id number] [place] [address]- [address] Mar, [facility] [address] [id number] [place] [address] Mar, [facility] [address] [id number] [place] [address]- [address] Mar, [facility] [address] [id number] [place] [address]- [address] Mar, [facility] [address] [id number] [place] [address] Mar, [facility] [place] [facility] [address] [id number] [place] [address] 8069 Feb, [facility] [place] [facility] [address] [id number] [place] [address]- [address] Feb, [facility] [place] [facility] [address] [id number] [place] [address]- [address] Feb, [facility] [place] [facility] [address] [id number] [place] [address]- [address] Feb, [facility] [place] [facility] [address] [id number] [place] [address]00 Feb, [facility] [place] [facility] [address] [id number] [place] [address]- [address] Feb, [facility] [place] [facility] [address] [id number] [place] [address] Feb, [facility] [place] [facility] [address] [id number] [place] [address]- [address]245 Feb, [facility] [place] [facility] [address] [id number] [place] [address]- 3210 Feb, 2012 [facility] [place] [facility] [address] [id number] [place] [address]- [address] Feb, [facility] [place] [facility] [address] [id number] [place] [address] Feb, [facility] [place] [facility] [address] [id number] [place] [address] Feb, [facility] [place] [facility] [address] [id number] [place] [address] Feb, [facility] [place] [facility] [address] [id number] [place] [address]- 3514 Feb, [facility] [place] [facility] [address] [id number] [place] [address]- [address] Feb, [facility] [place] [facility] [address] [id number] [place] [address]- [address] Feb, [facility] [place] [facility] [address] [id number] [place] [address] Dec, [facility] [place] [facility] [address] [id number] [place] [address]- [address] 24 Dec, 2012 [facility] [place] [facility] [address] [id number] [place] [address] Dec, [facility] [place] [facility] [address] [id number] [place] [address] Dec, [facility] [place] [facility] [address] [id number] [place] [address] Dec, [facility] [place] [facility] [address] [id number] [place] [address]- [address] 16 Dec, 2012 [facility] [address] [id number] [place] [address]- [address] 14 Dec, 2012 [facility] [place] [facility] [address] [id number] [place] [address]- [address]85 14 Dec, 2012 [facility] [address] [id number] [place] [address]- [address]70 10 Dec, 2012 [facility] [place] [facility] [address] [id number] [place] [address]- [address] 10 Dec, 2012 [facility] [address] [id number] [place] [address]- [address] 10 Dec, 2012 [facility] [place] [facility] [address] [id number] [place] [address]- [address] 10 Dec, 2012 [facility] [place] [facility] [address] [id number] [place] [address]- [address] 03 Dec, 2012 [facility] [address] [id number] [place] [address]- [address]14 25 Nov, 2012 [facility] [place] [facility] [address] [id number] [place] [address]- [address] 20 Nov, 2012 [facility] [place] [facility] [address] [id number] [place] [address]- [address]36 18 Sep, 2012 [facility] [place] [facility] [address] [id number] [place] [address]- [address] 16 Sep, 2012 [facility] [place] [facility] [address] [id number] [place] [address]- [address]40 12 Sep, 2012 [facility] [place] [facility] [address] [id number] [place] [address]- [address] 11 Nov, 2012 [facility] [place] [facility] [address] [id number] [place] [address]- [address] 05 Sep, 2012 [facility] [place] [facility] [address] [id number] [place] [address]- [address] Oct, [facility] [place] [facility] [address] [id number] [place] [address]- [address] Oct, [facility] [place] [facility] [address] [id number] [place] [address] Sep, [facility] [place] [facility] [address] [id number] [place] [address] Sep, [facility] [place] [facility] [address] [id number] [place] [address] Sep, [facility] [place] [facility] [address] [id number] [place] [address] Sep, [facility] [place] [facility] [address] [id number] [place] [address] Sep, [facility] [place] [facility] [address] [id number] [place] [address]252 Sep, [facility] [place] [facility] [address] [id number] [place] [address] 1440 Sep, [facility] [place] [facility] [address] [id number] [place] [address] Aug, [facility] [place] [facility] [address] [id number] [place] [address]388 Aug, [facility] [place] [facility] [address] [id number] [place] [address] 8266 16 Aug, 2012 [facility] [place] [facility] [address] [id number] [address] 13 Aug, 2012 [facility] [place] [facility] [address] [id number] [place] [address] 1796 11 Aug, 2012 [facility] [place] [facility] [address] [id number] [place] [address] 4885 10 Aug, 2012 [facility] [place] [facility] [address] [id number] [place] [address] 04 Aug, 2012 [facility] [place] [facility] [address] [id number] [address] Aug, [facility] [address] [id number] [place] [address] 9[address] July, [facility] [address] [id number] [place] [address] 8826 July, [facility] [address] [id number] [place] [address] 60[address] July, [facility] [address] [id number] [place] [address] July, [facility] [address] [id number] [place] [address] 0293 July, [facility] [address] [id number] [place] [address] 1706 Jun, [facility] [address] [id number] [place] [address] 0804 May, [facility] [address] [id number] [place] [address] 8738 May, [facility] [address] [id number] [place] [address] 1211 May, [facility] [address] [id number] [place] [address] 1812 Apr, [facility] [address] [id number] [place] [address] 7982 Apr, [facility] [address] [id number] [place] [address] 2546 Apr, [facility] [address] [id number] [place] [address] 2531 Mar, [facility] [address] [id number] [place] [address] Mar, [facility] [address] [id number] [place] [address] 9350 Mar, [facility] [address] [id number] [place] [address] 1260 14 Mar, 2012 [facility] [place] [facility] [address] [id number] [place] [address] 7252 10 Mar, 2012 [facility] [place] [facility] [address] [id number] [place] [address] 2546 09 Mar, 2012 [facility] [place] [facility] [address] [id number] [place] [address] 4506 Mar, [facility] [place] [facility] [address] [id number] [place] [address] 7789 Feb, [facility] [place] [facility] [address] [id number] [place] [address] 1419 Feb, [facility] [place] [facility] [address] [id number] [place] [address] 4678 Feb, [facility] [place] [facility] [address] [id number] [place] [address] 1016 Feb, [facility] [place] [facility] [address] [id number] [place] [address] 2548 Feb, [facility] [place] [facility] [address] [id number] [place] [address] 6005 Feb, [facility] [place] [facility] [address] [id number] [place] [address] 2847 Feb, [facility] [place] [facility] [address] [id number] [place] [address] 0[address] Feb, [facility] [place] [facility] [address] [id number] [place] [address] 1697 Jan, [facility] [place] [facility] [address] [id number] [place] [address] 6426 Jan, [facility] [place] [facility] [address] [id number] [place] [address] 6146 Jan, [facility] [place] [facility] [address] [id number] [place] [address] 6[address] Jan, [facility] [place] [facility] [address] [id number] [place] [address] 0457 Jan, [facility] [place] [facility] [address] [id number] [place] [address] 9697 Jan, [facility] [place] [facility] [address] [facility] [id number] [place] [address] 8058 Jan, [facility] [place] [facility] [address] [id number] [place] [address]285 Jan, [facility] [place] [facility] [address] [id number] [place] [address] 7511 Jan, [facility] [place] [facility] [address] [id number] [place] [address] 8775 Jan, [facility] [place] [facility] [address] [facility] [id number] [place] [address] 3923 Jan, [facility] [place] [facility] [address] [id number] [place] [address] 9063 Jan, [facility] [place] [facility] [address] [id number] [place] [address]- 2117 Jan, [facility] [place] [facility] [address] [facility] [id number] [place] [address]- 8065 Jan, [facility] [place] [facility] [address] [facility] [id number] [place] [address] 8369 Jan, [facility] [place] [facility] [address] [id number] [place] [address] 5832 Jan, [facility] [place] [facility] [address] [id number] [place] [address] 1513 Dec, [facility] [place] [facility] [address] [id number] [place] [address] 0580 Dec, [facility] [place] [facility] [address] [facility] [id number] [place] [address] 0286 Dec, [facility] [place] [facility] [address] [id number] [place] [address]93 16 Dec, 2011 [facility] [place] [facility] [address] [id number] [place] [address]- 1136 Dec, [facility] [place] [facility] [address] [id number] [place] [address]- 0584 Dec, [facility] [place] [facility] [address] [id number] [place] [address]- 6484 Dec, [facility] [place] [facility] [address] [id number] [place] [address]- 6557 Dec, [facility] [place] [facility] [address] [id number] [place] [address]- 4554 Dec, [facility] [place] [facility] [address] [id number] [place] [address]- 1393 05 Dec, 2011 [facility] [place] [facility] [address] [id number] [place] [address]- 5604 18 Nov, 2011 [facility] [place] [facility] [address] [id number] [place] [address]- 1778 13 Nov, 2011 [facility] [place] [facility] [address] [id number] [place] [address]- 2028 24 Oct, 2011 [facility] [place] [facility] [address] [id number] [place] [address]- 9374 Oct, [facility] [place] [facility] [address] [id number] [place] [address]- 2065 17 Oct, 2011 [facility] [place] [facility] [address] [id number] [place] [address]- 9359 16 Oct, 2011 [facility] [place] [facility] [address] [id number] [place] [address]- 2872 15 Oct, 2011 [facility] [place] [facility] [address] [id number] [place] [address]- 0468 Oct, [facility] [place] [facility] [address] [id number] [place] [address]- 9135 Oct, [facility] [place] [facility] [address] [id number] [place] [address]- 3642 Sep, [facility] [place] [facility] [address] [id number] [place] [address]- 6188 Aug, [facility] [place] [facility] [address] [id number] [place] [address]- 5136 Aug, [facility] [place] [facility] [address] [id number] [place] [address]- 6340 Aug, [facility] [address] [id number] [place] [address]- 6129 Aug, [facility] [place] [facility] [address] [id number] [place] [address]- 7426 Aug, [facility] [address] [id number] [place] [address]- 1186 July, [facility] [address] [id number] [place] [address]- 5631 July, [facility] [place] [facility] [address] [id number] [place] [address]- 5705 July, [facility] [place] [facility] [address] [id number] [place] [address]- 7168 Jun, [facility] [place] [facility] [address] [id number] [place] [address]- 4056 Jun, [facility] [place] [facility] [address] [id number] [place] [address]- 6979 Jun, [facility] [place] [facility] [address] [id number] [place] [address]- 5713 Jun, [facility] [place] [facility] [address] [id number] [place] [address]- 3316 May, [facility] [place] [facility] [address] [id number] [place] [address]- 4750 May, [facility] [place] [facility] [address] [id number] [place] [address]- 2123 29 May, 2011 [facility] [place] [facility] [address] [id number] [place] [address]- 1255 28 May, 2011 [facility] [place] [facility] [address] [id number] [place] [address]- 3386 23 May, 2011 [facility] [place] [facility] [address] [id number] [place] [address]- 4886 22 May, 2011 [facility] [place] [facility] [address] [id number] [place] [address]- 0214 21 May, 2011 [facility] [place] [facility] [address] [id number] [place] [address]- 1378 19 May, 2011 [facility] [place] [facility] [address] [id number] [place] [address]- 0765 08 May, 2011 [facility] [place] [facility] [address] [id number] [place] [address]- 5060 05 May, 2011 [facility] [place] [facility] [address] [id number] [place] [address]- 2166 02 May, 2011 [facility] [place] [facility] [address] [id number] [place] [address]- 5904 May, [facility] [place] [facility] [address] [id number] [place] [address]- 5015 Mar, [facility] [place] [facility] [address] [id number] [place] [address]- 2100 Mar, [facility] [place] [facility] [address] [id number] [place] [address]- 9222 Feb, [facility] [place] [facility] [address] [id number] [place] [address]- 9186 Feb, [facility] [place] [facility] [address] [id number] [place] [address] Feb, [facility] [place] [facility] [address] [id number] [place] [address]- 2750 15 Feb, 2011 [facility] [place] [facility] [address] [id number] [place] [address]- 7801 13 Feb, 2011 [facility] [address] [id number] [place] [address]- 6178 13 Feb, 2011 [facility] [place] [facility] [address] [id number] [place] [address]- 0363 13 Feb, 2011 [facility] [address] [id number] [place] [address]- 8107 28 Jan, 2011 [facility] [place] [facility] [address] [id number] [place] [address]- 1004 Jan, [facility] [address] [id number] [place] [address]- 0896 Jan, [facility] [place] [facility] [address] [id number] [place] [address]- 1121 17 Jan, 2011 [facility] [place] [facility] [address] [id number] [place] [address]- 4810 Jan, [facility] [address] [id number] [place] [address]- 3621 Jan, [facility] [place] [facility] [address] [id number] [place] [address]- 9886 Dec, [facility] [address] [id number] [place] [address]- 3629 Dec, [facility] [place] [facility] [address] [id number] [place] [address]- 6169 Dec, [facility] [place] [facility] [address] [id number] [place] [address]- 0664 July, [facility] [place] [facility] [address] [id number] [place] [address]- 1391 July, [facility] [place] [facility] [address] [id number] [place] [address]- 8885 08 Feb, 2010 [facility] [place] [facility] [address] [id number] [place] [address]- 8805 Jan, [facility] [place] [facility] [address] [id number] [place] [address]- 3571 Dec, [facility] [place] [facility] [address] [id number] [place] [address]- 8616 Dec, [facility] [place] [facility] [address] [id number] [place] [address]- 6060 Sep, [facility] [place] [facility] [address] [id number] [place] [address]- 9089 Aug, [facility] [place] [facility] [address] [id number] [place] [address]- 3487 Jun, [facility] [place] [facility] [address] [id number] [place] [address]- 0256 Jun, [facility] [place] [facility] [address] [id number] [place] [address]- 4764 Jan, [facility] [place] [facility] [address] [id number] [place] [address]- 6560 Jan, [facility] [place] [facility] [address] [id number] [place] [address]- 9574 Jan, [facility] [place] [facility] [address] [id number] [place] [address]- 1359 Jan, [facility] [place] [facility] [address] [id number] [place] [address]- 7775 Dec, [facility] [place] [facility] [address] [id number] [place] [address]- 4933 Dec, [facility] [place] [facility] [address] [id number] [place] [address]- 2799 Dec, [facility] [place] [facility] [address] [id number] [place] [address] Nov, [facility] [place] [facility] [address] [id number] [place] [address] July, [facility] [place] [facility] [address] [id number] [place] [address]- 6296 May, [facility] [address] [facility] [id number] [place] [address]- 9816 Apr, [facility] [address] [facility] [id number] [place] [address] 2546 Feb, [facility] [address] [facility] [id number] [place] [address] 2546 Dec, IMMUNIZATIONS Vaccine Route Administration Date Status FLULAVAL QUAD 0.5ML (6 MO AND UP) 2017 IM Intramuscular Feb 28, 2018 Administered SOCIAL HISTORY Never Assessed REASON FOR VISIT Diarrhea Pt in for diarrhea, states she has had this since September, also c/o abdominal pain. GLEN Trevino PLAN OF CARE Activity Details Follow Up prn Reason: VITAL SIGNS Height 64 in 2018-02-28 Weight 186.1 lbs 2018-02-28 Temperature 97.3 degrees Fahrenheit 2018-02-28 Heart Rate 92 bpm 2018-02-28 Respiratory Rate 18 2018-02-28 BMI 31.94 kg/m2 2018-02-28 Blood pressure systolic 142 mmHg 2018-02-28 Blood pressure diastolic 62 mmHg 2018-02-28 MEDICATIONS Medication Instructions Dosage Frequency Start Date End Date Duration Status Victoza 18 MG/3ML Subcutaneous Once a day inject 1.8 ml 24h 90 days Active Test strips Contour test strips 2 times a day test blood sugar 12h Aug, Active Metformin HCl 1000 mg Orally twice a day 1 tablet with a meal 12h Nov, Active Melatonin 5 MG Orally Once a day 1 tablet at bedtime as needed with food 24h Active Aspirin Adult Low Strength 81 MG Orally Once a day 1 tablet 24h Active Migraine Relief 250-250-65 MG Orally Once a day 2 tablets 24h Active Aleve 220 MG Orally every 12 hrs 1 tablet with food or milk as needed 12h Nov, Active Amaryl 4 MG Orally Once a day in AM 1 tablet with breakfast or the first main meal of the day Sep, 30 day(s) Active Ativan 0.5 MG Orally Once a day, no early refills 1 tablet as needed Sep, Active Tizanidine HCl 4 MG Orally Once a day 1 tablet as needed at bedtime 24h 30 days Active MetFORMIN HCl ER 500 MG 1 tab with evening meal x 7 day then 1 tab bid with meals x 7 then 1 tab at AM meal and 2 tabs at PM meal x 7 then 2 tab BID @ meals Nov, 30 days Active Actos 45 MG Orally Once a day 1 tablet 24h Apr, 90 days Active Fenofibrate 160 MG Orally Once a day 1 tablet with food 24h Nov, 105 days Active Farxiga 10 MG Orally Once a day 1 tablet 24h Apr, 90 days Active Questran Light 4 GM/DOSE Orally Twice a day 1 scoop 12h Feb, 30 day(s) Active NovoLog Mix 70/30 Flexpen (70-30) 100 UNIT/ML Subcutaneous 2 times a day Inject 120 units 12h Active NovoFine 32G X 6 MM subcutaneously 3 times a day as directed for use with Victoza and Novolog Pens 8h July, 90 days Active Lamictal 200 MG Orally every evening 1 tablet May, Active Toprol XL 25 mg take 1 tablet by Oral route 1 time per day take at hs May, Active Simvastatin 80 MG Orally Once a day 1 tablet in the evening 24h Sep, 90 days Active Celexa 40 MG Orally Once a day 1 tablet 24h May, Active RESULTS Name Result Date Reference Range UA LONG DIP (IN HOUSE) 2018-02-28 Lot # [id number] Exp date 10/26/2018 Clarity clear Color yellow Odor none GLU 2+ LARRY negative KET 1+ SG 1.015 BLO 1+ pH 5.0 Protein negative URO 0.2 NIT negative SAMANTHA negative Lot # [id number] Exp date 02/2018 PROCEDURES Procedure Date Ordered Result Body Site URINALYSIS, AUTO, W/O SCOPE Feb 28, 2018 SINGLE IMMUNIZATION ADMIN Feb 28, 2018 FLULAVAL QUAD 0.5ML (6 MO AND UP) 2017Feb 28, 2018 INSTRUCTIONS MEDICATIONS ADMINISTERED No Known Medications MEDICAL [...]
--- OUTSIDE RECORDS SUMMARY | 2018-06-14 14:16 | XMS REPORT ---
Author Author BEVERLY TAO Organization [facility] Address [address] [place] [address] Care Team Providers Care Actuarial Manager Name Role Phone BEVERLY TAO Unavailable PROBLEMS Type Condition ICD9-CM Code FZR07-VH Code Onset Dates Condition Status SNOMED Code Problem Type 2 diabetes mellitus with complication E11.8 Active 106298276 Problem Acute bilateral low back pain with right-sided sciatica M54.41 Active 243327858 Problem Hyperlipidemia, unspecified E78.5 Active 09312356 Problem Hypertriglyceridemia E78.1 Active 409334673 Problem Obesity, unspecified 278.00 Active 747007557 Problem Other chronic pain G89.29 Active 79019646 Problem Eye exam normal Z01.00 Active 828978076 Problem Post laminectomy syndrome M96.1 Active 81815483 Problem longterm current use of insulin Z79.4 Active 635482776 Problem New daily persistent headache G44.52 Active 737130055 Problem Lumbago with sciatica, left side M54.42 Active 970367199 Problem Type 2 diabetes mellitus with hyperglycemia E11.65 Active 28254782 Problem Extreme poverty Z59.5 Active 27368519 Problem 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 Active 55628627 Problem Hyperlipidemia 272.4 Active 66858565 Problem Bipolar disorder, in partial remission, most recent episode manic F31.73 Active 92648783 Problem Irritable bowel syndrome with diarrhea K58.0 Active 353875709 Problem Lumbar radiculopathy M54.16 Active 414702474 Problem Non compliance with medical treatment Z91.19 Active 0855910 Problem Bipolar 1 disorder F31.9 Active 377106236 Problem Diabetes E11.9 Active 533956616 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 574364090 ALLERGIES Substance Reaction Event Type Date Status Zithromax Chest pain Drug Allergy Feb, Active Prednisone elevated blood sugars Drug Allergy Feb, Active ENCOUNTERS Encounter Location Date Diagnosis [facility] [id number] [place] [address] 75596- 8019 Mar, [facility] [address] 47298- 7712 Mar, [facility] [id number] [place] [address] 16583- 0380 Mar, [facility] [address] 07667- 6751 Feb, [facility] [address] 31112- 5898 Feb, Myalgia M79.10 and Nausea R11.0 [facility] [address] 26496- 0195 Feb, Bipolar 1 disorder F31.9 ; 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 and Extreme poverty Z59.5 [facility] [id number] [place] [address] 72054- 8003 Dec, Bipolar 1 disorder F31.9 ; 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 and Extreme poverty Z59.5 [facility] [address] 08460- 8656 Nov, [facility] [id number] [place] [address] 80241- 1062 Nov, Hypertriglyceridemia E78.1 [facility] [address] 03139- 2401 20 Nov, 2017 Bipolar 1 disorder F31.9 ; 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9 ; 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 and Extreme poverty Z59.5 [facility] [id number] [place] [address] 15993- 4377 10 Nov, 2017 Type 2 diabetes mellitus with complication E11.8 ; Pain of left upper arm M79.622 ; Pain in right upper arm M79.621 ; Hyperglycemia R73.9 ; Lumbago with sciatica, left side M54.42 and Other chronic pain G89.29 [facility] [address] [place] [address] 80982- 7712 15 Oct, 2017 Bipolar 1 disorder F31.9 ; 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 and Extreme poverty Z59.5 [facility] [id number] [place] [address] 55200- 4026 Oct, Type 2 diabetes mellitus with hyperglycemia E11.65 ; 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 and Other acute gastritis without hemorrhage K29.00 [facility] [id number] [place] [address] 44247- 4014 Oct, Bipolar 1 disorder F31.9 ; 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 and Extreme poverty Z59.5 [facility] [id number] [place] [address] 81781- 5041 Sep, Diarrhea, unspecified R19.7 and Vomiting, unspecified R11.10 [facility] [id number] [place] [address] 18753- 1449 Aug, Type 2 diabetes mellitus with complication E11.8 [facility] [id number] [place] [address] 43754- 3483 Aug, [facility] [id number] [place] [address] 82161- 0212 Aug, Bipolar 1 disorder F31.9 ; 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 and Extreme poverty Z59.5 [facility] [id number] [place] [address] 75682- 5428 Aug, 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 and Bipolar disorder, in partial remission, most recent episode manic F31.73 [facility] [id number] [place] [address] 41838- 8561 Aug, Bipolar 1 disorder F31.9 [facility] [id number] [place] [address] 14091- 5263 Aug, [facility] [id number] [place] [address] 10092- 8930 Aug, [facility] [id number] [place] [address] 60756- 6536 Aug, Bipolar 1 disorder F31.9 ; 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 and Extreme poverty Z59.5 [facility] [address] [place] [address] 25465- 1656 July, Type 2 diabetes mellitus with complication E11.8 [facility] [id number] [place] [address] 45592- 8346 July, Bipolar 1 disorder F31.9 ; 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 and Extreme poverty Z59.5 [facility] [id number] [place] [address]- 5010 Jun, Bipolar 1 disorder F31.9 ; 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 and Extreme poverty Z59.5 [facility] [id number] [place] [address] 72305- 5705 Jun, Bipolar 1 disorder F31.9 ; 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 and Extreme poverty Z59.5 [facility] [id number] [place]- 3446 Jun, Bipolar 1 disorder F31.9 ; 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 and Extreme poverty Z59.5 [facility] [id number] [place] [address] 45667- 3005 May, Urinary tract infection without hematuria, site unspecified N39.0 [facility] [id number] [place] [address] 40381- 5232 May, Bipolar 1 disorder F31.9 ; 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 and Extreme poverty Z59.5 [facility] [id number] [place] [address]862 28 Apr, 2017 Diabetes E11.9 and Breast cancer screening Z12.31 [facility] [id number] [place] [address] 941124- 4514 Apr, Bipolar 1 disorder F31.9 and 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 [facility] [address] [place] [address]- 3100 Mar, Bipolar 1 disorder F31.9 ; 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 and Extreme poverty Z59.5 [facility] [address] [place] [address] 00351- 0094 Mar, New daily persistent headache G44.52 ; Leg pain 729.5 and History of carpal tunnel release Z98.890 [facility] [id number] [place] [address] 92917- 3313 Mar, Hyperlipidemia, unspecified E78.5 [facility] [id number] [place] [address] 03416- 6483 Mar, Bipolar 1 disorder F31.9 ; 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 and Extreme poverty Z59.5 [facility] [address] 30542- 3885 Feb, Bipolar 1 disorder F31.9 ; 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 and Extreme poverty Z59.5 [facility] [address] 910994- 4093 Feb, Diabetes E11.9 [facility] [id number] [place] [address] 10667- 0370 Feb, Viral syndrome B34.[address] 22621- 2648 Jan, Other viral agents as the cause of diseases classified elsewhere B97.89 and Acute upper respiratory infection, unspecified J06.9 [facility] [id number] [place] [address] 94659- 3496 Jan, Bipolar 1 disorder F31.9 and 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 [facility] [id number] [place] [address] 08817- 4650 Jan, Bipolar 1 disorder F31.9 ; 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 and Extreme poverty Z59.5 [facility] [id number] [place] [address] 96439- 7674 Dec, Diabetes E11.9 [facility] [id number] [place] [address] 83138- 2907 Dec, Diabetes E11.9 and Encounter for immunization Z23 [facility] [id number] [place] [address] 53036- 4270 Dec, Bipolar 1 disorder F31.9 ; 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 and Extreme poverty Z59.5 [facility] [address] [address]- 6314 Dec, Back pain M54.9 [facility] [address] [address]- 6298 07 Nov, 2016 [facility] [address] [place] [address] 03670- 1384 Nov, Bipolar 1 disorder F31.9 ; 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 and Extreme poverty Z59.5 [facility] [address] [place] [address] 02619- 7561 05 Nov, 2016 Bipolar 1 disorder F31.9 ; 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 and Extreme poverty Z59.5 [facility] [address] [place] [address] 32614- 8207 Oct, 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 and Bipolar 1 disorder F31.9 [facility] [address] [place] [address] 62639- 8648 Oct, Bipolar 1 disorder F31.9 ; 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 and Extreme poverty Z59.5 [facility] [facility] [address] [place] [address] 90748- 4350 Oct, Back pain M54.9 [facility] [address] [place] [address] 33596- 0528 Oct, 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 and Type 2 diabetes mellitus with complication E11.8 [facility] [address] [place] [address] 78169- 4604 Sep, Bipolar 1 disorder F31.9 ; 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 and Extreme poverty Z59.5 [facility] [address] [place] [address] 44770- 9540 Sep, 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 and Bipolar 1 disorder F31.9 [facility] [address] [place] [address] 33420- 4406 Sep, Bipolar 1 disorder F31.9 ; 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 and Extreme poverty Z59.5 [facility] [id number] [place] [address] 12676- 3196 Aug, Diabetes E11.9 ; Hyperlipidemia, unspecified E78.5 and Lumbar radiculopathy M54.16 [facility] [id number] [place] [address] 10498- 4353 Aug, Bipolar 1 disorder F31.9 ; 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 and Extreme poverty Z59.5 [facility] [id number] [place] [address] 31199- 1988 Aug, [facility] [id number] [place] [address] 58527- 7226 Aug, [facility] [id number] [place] [address] 23646- 5967 Aug, [facility] [id number] [place] [address] 44661- 5719 July, [facility] [address] 35347- 0949 July, Acute bilateral low back pain with right-sided sciatica M54.41 [facility] [id number] [place] [address] 10145- 0501 July, Bipolar 1 disorder F31.9 ; 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 and Extreme poverty Z59.5 [facility] [id number] [place] [address] 62299- 0811 July, Back pain M54.9 and Diabetes E11.9 [facility] [id number] [place] [address] 63667- 9441 Jun, Bipolar 1 disorder F31.9 ; 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 and Extreme poverty Z59.5 [facility] [id number] [place] [address] 82850- 3802 Jun, Bipolar 1 disorder F31.9 ; 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 and Extreme poverty Z59.5 [facility] [id number] [place] [address] 22961- 5392 May, Visit for pelvic exam Z01.419 ; Acute vaginitis N76.0 and Diabetes E11.9 [facility] [id number] [place] [address] 81376- 4572 May, Bipolar 1 disorder F31.9 ; 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 and Extreme poverty Z59.5 [facility] [id number] [place] [address] 89267- 5653 May, [facility] [address] 89597- 2877 May, [facility] [address] 53579- 4805 May, Bipolar 1 disorder F31.9 ; 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 and Extreme poverty Z59.5 [facility] [id number] [place] [address] 87685- 6314 May, Hyperlipidemia, unspecified E78.5 [facility] [id number] [place] [address] 48193- 8694 Apr, Breast cancer screening Z12.39 [facility] [id number] [place] [address] 07463- 6663 Mar, [facility] [address] 97872- 5130 Mar, Bipolar disorder, current episode mixed, unspecified F31.60 [facility] [address] 16222- 5636 Mar, Bipolar 1 disorder F31.9 ; 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 and Extreme poverty Z59.5 [facility] [id number] [place] [address] 25694- 3981 Feb, Acute nasopharyngitis J00 [facility] [id number] [place] [address] 42510- 7625 27 Feb, 2016 Dental examination Z01.20 [facility] [id number] [place] [address] 35580- 1633 21 Feb, 2016 Dental cavities K02.9 and Chronic periodontitis, unspecified K05.30 [facility] [address] 46442- 0538 13 Feb, 2016 Low back pain M54.5 and Extreme poverty Z59.5 [facility] [address] 24331- 3331 08 Feb, 2016 [facility] [address] 84951- 3506 05 Feb, 2016 Routine gynecological examination V72.31 ; Breast cancer screening Z12.39 and Herpes simplex type 1 infection B00.9 [facility] [address] 15884- 7252 02 Feb, 2016 Diabetes E11.9 [facility] [address] 53735- 3870 Feb, Encounter for dental examination and cleaning without abnormal findings Z01.20 [facility] [id number] [place] [address] 49027- 0797 22 Jan, 2016 Hyperlipidemia, unspecified E78.5 [facility] [id number] [place] [address] 98195- 9679 Jan, Bipolar 1 disorder F31.9 ; 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 and Extreme poverty Z59.5 [facility] [id number] [place] [address] 13049- 4829 18 Jan, 2016 Diabetes E11.9 [facility] [address] 07542- 0097 17 Jan, 2016 Diabetes E11.9 [facility] [id number] [place] [address] 88225- 0663 14 Dec, 2015 Bipolar 1 disorder F31.9 ; 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 and Extreme poverty Z59.5 [facility] [facility] [id number] [place] [address] 26114- 7902 13 Dec, 2015 Bipolar disorder, current episode mixed, unspecified F31.60 and 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 [facility] [facility] [id number] [place] [address] 96465- 4895 16 Nov, 2015 Bipolar 1 disorder F31.9 ; 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 ; Extreme poverty Z59.5 and Non compliance with medical treatment Z91.19 [facility] [id number] [place] [address] 11202- 1003 Oct, [facility] [id number] [place] [address] 37970- 1760 29 Oct, 2015 Dental caries K02.9 [facility] [id number] [place] [address] 92823- 8211 Oct, Low back pain M54.5 and Other chronic pain G89.29 [facility] [id number] [place] [address] 26834- 3171 24 Oct, 2015 Bipolar 1 disorder F31.9 ; 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 ; Extreme poverty Z59.5 and Non compliance with medical treatment Z91.19 [facility] [id number] [place] [address] 19057- 2292 Oct, [facility] [id number] [place] [address] 29929- 0174 Oct, [facility] [id number] [place] [address] 22297- 0146 Oct, Dental examination Z01.20 [facility] [id number] [place] [address] 29944- 6128 10 Oct, 2015 Bipolar 1 disorder F31.9 ; 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 ; Extreme poverty Z59.5 and Non compliance with medical treatment Z91.19 [facility] [address] [place] [address]- 0207 Oct, [facility] [address] [address]- 2972 Sep, Type 2 diabetes mellitus with complication E11.8 [facility] [address], [place] [address]- 9437 Sep, Bipolar disorder, current episode mixed, unspecified F31.60 [facility] [id number] [place] [address] 66791- 5922 Sep, Bipolar disorder, current episode mixed, unspecified F31.60 [facility] [address] [place] [address] 83899- 0970 Sep, Bipolar disorder, in partial remission, most recent episode manic F31.73 ; 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 ; Extreme poverty Z59.5 and Non compliance with medical treatment Z91.19 [facility] [address], [place] [address]- 3534 Aug, Bipolar disorder, in partial remission, most recent episode manic F31.73 ; 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 ; Extreme poverty Z59.5 and Non compliance with medical treatment Z91.19 [facility] [address] [place] [address] 79403- 6456 Aug, Bipolar disorder, in partial remission, most recent episode manic F31.73 ; 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 ; Extreme poverty Z59.5 and Non compliance with medical treatment Z91.19 [facility] [id number] [address]- 2894 Aug, [facility] [address] [place] [address] 55180- 0728 July, Bipolar disorder, in partial remission, most recent episode manic F31.73 ; 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 ; Extreme poverty Z59.5 and Non compliance with medical treatment Z91.19 [facility] [address], [place] [address]- 9632 July, Bipolar disorder, current episode mixed, unspecified F31.60 [facility] [address] [place] [address] 69927- 0042 July, Bipolar disorder, in partial remission, most recent episode manic F31.73 ; 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 ; Extreme poverty Z59.5 and Non compliance with medical treatment Z91.19 [facility] [id number] [place] [address] 07448- 4866 July, 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 and Chronic pain G89.29 [facility] [id number] [place] [address] 10317- 9865 Jun, longterm current 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 Z79.891 and Bipolar 1 disorder F31.9 [facility] [id number] [place] [address] 65131- 3609 Jun, [facility] [id number] [place] [address] 16925- 8080 Jun, [facility] [id number] [place] [address] 07985- 6008 Jun, [facility] [id number] [place] [address] 17911- 6678 Jun, Bipolar disorder, in partial remission, most recent episode manic F31.73 ; 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 and Non compliance with medical treatment Z91.19 [facility] [id number] [place] [address] 81248- 9296 May, Bipolar disorder, in partial remission, most recent episode manic F31.73 ; 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 and Non compliance with medical treatment Z91.19 [facility] [id number] [place] [address] 96186- 1030 May, Bipolar disorder, in partial remission, most recent episode manic F31.73 [facility] [id number] [place] [address] 55416- 5058 May, Diabetes E11.9 and Chronic pain G89.29 [facility] [id number] [place] [address] 54278- 9430 May, [facility] [id number] [place] [address] 24780- 8705 May, Bipolar disorder, in partial remission, most recent episode manic F31.73 ; Non compliance with medical treatment Z91.19 and 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 [facility] [id number] [place] [address] 86586- 8256 May, Type 2 diabetes mellitus with complication E11.8 and Back pain M54.9 [facility] [id number] [place] [address] 87542- 0154 May, Bipolar disorder, in partial remission, most recent episode manic F31.73 and 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 [facility] [id number] [place] [address] 29993- 6645 Apr, [facility] [id number] [place] [address] 74827- 8361 Apr, [facility] [id number] [place] [address] 34887- 4993 Apr, [facility] [id number] [place] [address] 94587- 9024 Apr, Diabetes E11.9 ; Irritable bowel syndrome with diarrhea K58.0 and Lumbar radiculopathy M54.16 [facility] [id number] [place] [address] 28879- 4453 Apr, Breast screening Z12.39 [place] [id number] [place] [address] 67749- 3982 Apr, Bipolar disorder, in partial remission, most recent episode manic F31.73 ; Non compliance with medical treatment Z91.19 and 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 [facility] [id number] [place] [address] 62316- 6996 Mar, Edema, unspecified type R60.9 and Type 2 diabetes mellitus with complication E11.8 [facility] [id number] [place] 0180 Mar, Bipolar disorder, in partial remission, most recent episode manic F31.73 ; Non compliance with medical treatment Z91.19 ; 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 and Extreme poverty Z59.5 [facility] [id number] [place] [address] 54720- 3960 Mar, Bipolar disorder, current episode mixed, unspecified F31.60 ; 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 ; Extreme poverty Z59.5 and Generalized anxiety disorder F41.1 [facility] [id number] [place] [address] 00305- 8913 12 Mar, 2015 Bipolar disorder, in partial remission, most recent episode manic F31.73 ; 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 and Extreme poverty Z59.5 [facility] [id number] [place] [address] 14776- 2616 Feb, Bipolar disorder, in partial remission, most recent episode manic F31.73 ; 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 and Extreme poverty Z59.5 [facility] [id number] [place] [address] 39098- 5673 Feb, Bipolar disorder, in partial remission, most recent episode manic F31.73 ; 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 and Extreme poverty Z59.5 [facility] [place] [id number] [place] [address] 80584- 8903 Feb, [facility] [id number] [place] [address] 60225- 9703 Jan, Type 2 diabetes mellitus with complication E11.8 and Petechiae R23.3 [facility] [id number] [place] [address] 80674- 9734 Jan, Type 2 diabetes mellitus with complication E11.8 ; Edema, unspecified R60.9 ; Petechiae R23.3 and Diabetes E11.9 [facility] [id number] [place] [address] 68277- 7649 Jan, Bipolar disorder, in partial remission, most recent episode manic F31.73 ; 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 and Extreme poverty Z59.5 [facility] [id number] [place] [address] 34541- 0807 Jan, Bipolar disorder, in partial remission, most recent episode manic F31.73 ; 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 and Extreme poverty Z59.5 [facility] [place] [address] 47163- 8506 Dec, Bipolar disorder, in partial remission, most recent episode manic F31.73 [facility] [address] 01308- 1706 Dec, Edema, due to unspecified malnutrition type, unspecified edema R60.9 and Essential hypertension I10 [facility] [address] 73252- 7892 Dec, Bipolar disorder, in partial remission, most recent episode manic F31.73 [facility] [address] 45953- 5435 Nov, Bipolar I disorder, most recent episode (or current) mixed, unspecified 296.60 [facility] [id number] [place] [address] 04318- 5958 Nov, Stress incontinence, female 625.6 ; Back pain 724.5 and Leg pain 729.5 [facility] [id number] [place] [address] 46425- 3854 18 Nov, 2014 Generalized anxiety disorder 300.02 and Bipolar II disorder 296.89 [facility] [address] 73382- 9611 Nov, Bipolar I disorder, most recent episode (or current) mixed, unspecified 296.60 [facility] [address] 16463- 6480 Oct, [facility] [address] [address] 3593 Oct, [facility] [id number] [place] [address] 68679- 6516 Oct, [facility] [id number] [address] 3074 Oct, Bipolar I disorder, most recent episode (or current) mixed, unspecified 296.60 [facility] [id number] [place] [address] 82450- 1441 Sep, Diabetes 250.00 [facility] [id number] [place] [address] 77669- 9735 Sep, Bipolar I disorder, most recent episode (or current) mixed, unspecified 296.60 [facility] [id number] [place] [address] 47217- 2437 Sep, [facility] [address] [address]- 6661 Sep, [facility] [id number] [place] [address] 44724- 9159 Sep, Bipolar I disorder, most recent episode (or current) mixed, unspecified 296.60 [facility] [address] [address]- 0763 Sep, Bipolar I disorder, most recent episode (or current) mixed, unspecified 296.60 [facility] [address] [address]- 2769 Sep, [facility] [id number] [place] [address] 45922- 7250 Sep, Anxiety 300.00 ; Diabetes 250.00 and Hyperlipidemia 272.4 [facility] [address] [address]- 3887 Aug, [facility] [id number] [place] [address] 56793- 2374 Aug, [facility] [address] [address]- 6128 Aug, [facility] [id number] [place] [address] 79986- 8656 Aug, Bipolar I disorder, most recent episode (or current) mixed, unspecified 296.60 [facility] [id number] [place] [address] 823132- 9039 Aug, Generalized anxiety disorder 300.02 and Bipolar II disorder 296.89 [facility] [id number] [place] [address] 509125- 6607 July, Bipolar I disorder, most recent episode (or current) mixed, unspecified 296.60 [facility] [address] 7186 July, Cough 786.2 [facility] [id number] [place] [address] 853592- 5244 July, Bipolar I disorder, most recent episode (or current) mixed, unspecified 296.60 [facility] [id number] [place] [address] 759195- 5159 Jun, Diabetes 250.00 [facility] [address] 6199 Jun, [facility] [address] [address]- 2396 Jun, [facility] [address] [address]- 0121 May, [facility] [id number] [address]- 5888 May, [facility] [address], [place] [address]- 5146 May, [facility] [address] 2582 May, [facility] [place] [facility] [address] [id number] [place] [address]- 4900 May, [facility] [place] [facility] [address] [id number] [place] [address]- 5323 May, [facility] [place] [facility] [address] [id number] [place] [address]- 3178 Apr, [facility] [place] [facility] [address] [id number] [place] [address]- 0726 Apr, [facility] [place] [facility] [address] [id number] [place] [address]- 1671 Apr, [facility] [place] [facility] [address] [id number] [place] [address]- 1874 Apr, [facility] [place] [facility] [address] [id number] [place] [address]- 4295 Apr, [facility] [place] [facility] [address] [id number] [place] [address]- 7513 Apr, [facility] [place] [facility] [address] [id number] [place] [address]- 4528 Apr, [facility] [place] [facility] [address] [id number] [place] [address]- 3097 Apr, [facility] [place] [facility] [address] [id number] [place] [address]- 5272 Mar, [facility] [place] [facility] [address] [id number] [place] [address]- 7452 Mar, [facility] [place] [facility] [address] [id number] [place] [address]- 4218 Mar, [facility] [place] [facility] [address] [id number] [place] [address]- 1162 Mar, [facility] [place] [facility] [address] [id number] [place] [address]- 0431 Mar, [facility] [place] [facility] [address] [id number] [place] [address]- 4997 Mar, [facility] [address] [id number] [place] [address]- 1657 Mar, [facility] [place] [facility] [address] [id number] [place] [address]- 4866 Mar, [facility] [address] [id number] [place] [address]- 0608 Feb, [facility] [place] [facility] [address] [id number] [place] [address]- 1225 Feb, [facility] [place] [facility] [address] [id number] [place] [address]- 7525 Feb, [facility] [place] [facility] [address] [id number] [place] [address]- 7760 Feb, [facility] [place] [facility] [address] [id number] [place] [address]- 7569 Feb, [facility] [address] [id number] [place] [address]- 4970 Feb, [facility] [place] [facility] [address] [id number] [place] [address]- 1144 Feb, [facility] [place] [facility] [address] [id number] [place] [address]- 1869 Feb, [facility] [place] [facility] [address] [id number] [place] [address]- 9627 Feb, [facility] [place] [facility] [address] [id number] [place] 5162 Feb, [facility] [place] [facility] [address] [id number] [place] [address]- 6031 Jan, [facility] [place] [facility] [address] [id number] [place] [address]- 6486 Jan, [facility] [place] [facility] [address] [id number] [place] [address]- 9767 Jan, [facility] [place] [facility] [address] [id number] [place] [address]- 6481 Jan, [facility] [place] [facility] [address] [id number] [place] [address]- 3808 Jan, [facility] [place] [facility] [address] [id number] [place] [address]- 3090 Jan, [facility] [place] [facility] [address] [id number] [place] [address]- 0408 Jan, [facility] [place] [facility] [address] [id number] [place] [address]- 2107 Jan, [facility] [place] [facility] [address] [id number] [place] [address]- 5878 Jan, [facility] [place] [facility] [address] [id number] [place] [address]- 3864 Jan, [facility] [place] [facility] [address] [id number] [place] [address]- 4116 Jan, [facility] [place] [facility] [address] [id number] [place] [address]- 2981 Jan, [facility] [place] [facility] [address] [id number], [place] [address]- 4699 Jan, [facility] [place] [facility] [address] [id number], [place] [address]- 5541 Jan, [facility] [place] [facility] [address] [id number], [place] [address]- 2437 Jan, [facility] [place] [facility] [address] [id number] [place] [address]- 0627 Dec, [facility] [place] [facility] [address] [id number] [address]- 9598 Dec, [facility] [place] [facility] [address] [id number] [place] [address]- 8340 16 Dec, 2013 [facility] [place] [facility] [address] [id number] [place] [address]- 1419 16 Dec, 2013 [facility] [place] [facility] [address] [id number] [place] [address]- 5880 09 Dec, 2013 [facility] [place] [facility] [address] [id number] [place] [address]- 2495 09 Dec, 2013 [facility] [place] [facility] [address] [id number] [place] [address]- 8329 07 Dec, 2013 [facility] [place] [facility] [address] [id number] [place] [address]- 5273 07 Dec, 2013 [facility] [place] [facility] [address] [id number] [place] [address]- 4810 25 Sep, 2013 [facility] [place] [facility] [address] [id number] [place] [address]- 4518 25 Sep, 2013 [facility] [place] [facility] [address] [id number] [place] [address]- 4302 10 Sep, 2013 [facility] [place] [facility] [address] [id number] [place] [address]- 0954 10 Sep, 2013 [facility] [place] [facility] [address] [id number] [place] [address]- 0429 08 Sep, 2013 [facility] [place] [facility] [address] [id number] [place] [address]- 3476 08 Sep, 2013 [facility] [place] [facility] [address] [id number] [place] [address]- 2001 08 Sep, 2013 [facility] [place] [facility] [address] [id number] [place] [address]- 254 08 Sep, 2013 [facility] [place] [facility] [address] [id number] [place] [address]- 9990 08 Sep, 2013 [facility] [place] [facility] [address] [id number] [place] [address]- 0442 08 Sep, 2013 [facility] [place] [facility] [address] [id number] [place] [address]- 0381 04 Sep, 2013 [facility] [place] [facility] [address] [id number] [place] [address]- 3292 04 Nov, 2013 [facility] [place] [facility] [address] [id number] [place] [address]- 3579 Nov, [facility] [place] [facility] [address] [id number] [place] [address]- 5416 Nov, [facility] [place] [facility] [address] [id number] [place] [address]- 7427 Nov, [facility] [place] [facility] [address] [id number] [place] [address]- 0273 Oct, [facility] [place] [facility] [address] [id number] [place] [address]- 9680 Oct, [facility] [place] [facility] [address] [id number] [place] [address]- 4302 Oct, [facility] [place] [facility] [address] [id number] [place] [address]- 7182 Oct, [facility] [place] [facility] [address] [id number] [place] [address]- 4797 Oct, [facility] [place] [facility] [address] [id number] [place] [address]- 2104 Oct, [facility] [place] [facility] [address] [id number] [place] [address]- 3699 Oct, [facility] [place] [facility] [address] [id number] [place] [address]- 3439 Oct, [facility] [place] [facility] [address] [id number] [place] [address]- 5965 Oct, [facility] [place] [facility] [address] [id number] [place] [address]- 7150 Oct, [facility] [place] [facility] [address] [id number] [place] [address]- 1268 Oct, [facility] [place] [facility] [address] [id number] [place] [address]- 0768 Oct, [facility] [place] [facility] [address] [id number] [place] [address]- 7057 Oct, [facility] [place] [facility] [address] [id number] [place] [address]- 3983 Oct, [facility] [place] [facility] [address] [id number] [place] [address]- 7536 Sep, [facility] [place] [facility] [address] [id number] [place] [address]- 3034 Sep, [facility] [place] [facility] [address] [id number] [place] [address]- 9034 Sep, [facility] [place] [facility] [address] [id number] [place] [address]- 3675 Sep, [facility] [place] [facility] [address] [id number] [place] [address]- 5458 Sep, [facility] [place] [facility] [address] [id number] [place] [address]- 1770 Sep, [facility] [place] [facility] [address] [id number] [place] [address]- 9386 Sep, [facility] [place] [facility] [address] [id number] [place] [address]- 2185 Sep, [facility] [place] [facility] [address] [id number] [place] [address]- 4498 Aug, [facility] [place] [facility] [address] [id number] [place] [address]- 4416 Aug, [facility] [place] [facility] [address] [id number] [place] [address]- 1655 Aug, [facility] [place] [facility] [address] [id number] [place] [address]- 5636 Aug, [facility] [place] [facility] [address] [id number] [place] [address]- 5681 Aug, [facility] [place] [facility] [address] [id number] [place] [address]- 6680 Aug, [facility] [address] [id number] [place] [address]- 6906 Aug, [facility] [address] [id number] [place] [address]- 1025 Aug, [facility] [address] [id number] [place] [address]- 5230 July, [facility] [address] [id number] [place] [address]- 0830 July, [facility] [address] [id number] [place] [address]- 6481 July, [facility] [address] [id number] [place] [address]- 0270 July, [facility] [address] [id number] [place] [address]- 4941 July, [facility] [address] [id number] [place] [address]- 3800 July, [facility] [address] [id number] [place] [address]- 7192 July, [facility] [address] [id number] [place] [address]- 4480 July, [facility] [address] [id number] [place] [address]- 4982 Jun, [facility] [place] [facility] [address] [id number] [place] [address]- 5737 Jun, [facility] [place] [facility] [address] [id number] [place] [address]- 8319 Jun, [facility] [place] [facility] [address] [id number] [place] [address]- 1815 Jun, [facility] [place] [facility] [address] [id number] [place] [address]- 1735 Jun, [facility] [place] [facility] [address] [id number] [place] [address]- 5001 Jun, [facility] [place] [facility] [address] [id number] [place] [address]- 4433 Jun, [facility] [place] [facility] [address] [id number] [place] [address]- 0361 Jun, [facility] [place] [facility] [address] [id number] [place] [address]- 9228 Jun, [facility] [place] [facility] [address] [id number] [place] [address]- 3604 Jun, [facility] [place] [facility] [address] [id number] [place] [address]- 5516 Jun, [facility] [place] [facility] [address] [id number] [place] [address]- 6819 Jun, [facility] [place] [facility] [address] [id number] [place] [address]- 8725 May, [facility] [place] [facility] [address] [id number] [place] [address]- 6170 May, [facility] [place] [facility] [address] [id number] [place] [address]- 1986 May, [facility] [place] [facility] [address] [id number] [place] [address]- 6692 May, [facility] [place] [facility] [address] [id number] [place] [address]- 8453 May, [facility] [place] [facility] [address] [id number] [place] [address]- 5689 May, [facility] [place] [facility] [address] [id number] [place] [address]- 7908 May, [facility] [place] [facility] [address] [id number] [place] 5812 May, [facility] [place] [facility] [address] [id number] [place] [address]- 9500 May, [facility] [place] [facility] [address] [id number] [place] [address]- 3556 May, [facility] [place] [facility] [address] [id number] [place] [address]- 6389 May, [facility] [place] [facility] [address] [facility] [id number] [place] [address]- 8024 May, [facility] [place] [facility] [address] [id number] [place] [address]- 3787 May, [facility] [place] [facility] [address] [id number] [place] [address]- 4217 May, [facility] [place] [facility] [address] [id number] [place] [address] Apr, [facility] [place] [facility] [address] [facility] [id number] [place] [address] Apr, [facility] [place] [facility] [address] [facility] [id number] [place] [address] Apr, [facility] [place] [facility] [address] [facility] [id number] [place] [address] Apr, [facility] [place] [facility] [address] [facility] [id number] [place] [address] Apr, [facility] [place] [facility] [address] [facility] [id number] [place] [address] Apr, [facility] [place] [facility] [address] [facility] [id number] [place] [address] Mar, [facility] [place] [facility] [address] [id number] [place] [address] Mar, [facility] [place] [facility] [address] [facility] [id number] [place] [address] Mar, [facility] [place] [facility] [address] [facility] [id number] [place] [address] Mar, [facility] [place] [facility] [address] [id number] [place] [address] Mar, [facility] [address] [id number] [place] [address] Mar, [facility] [place] [facility] [address] [id number] [place] [address] Mar, [facility] [address] [id number] [place] [address] Mar, [facility] [address] [id number] [place] [address] Mar, [facility] [address] [id number] [place] [address] Mar, [facility] [address] [id number] [place] [address] Mar, [facility] [address] [id number] [place] [address] Mar, [facility] [address] [id number] [place] [address] Mar, [facility] [address] [id number] [place] [address] Mar, [facility] [place] [facility] [address] [id number] [place] [address] Feb, [facility] [place] [facility] [address] [id number] [place] [address] Feb, [facility] [place] [facility] [address] [id number] [place] [address] Feb, [facility] [place] [facility] [address] [id number] [place] [address]- [address] Feb, [facility] [place] [facility] [address] [id number] [place] [address] Feb, [facility] [place] [facility] [address] [id number] [place] [address] Feb, [facility] [place] [facility] [address] [id number] [place] [address] Feb, [facility] [place] [facility] [address] [id number] [place] [address] Feb, [facility] [place] [facility] [address] [id number] [place] [address]- [address] Feb, 2012 [facility] [place] [facility] [address] [id number] [place] [address] Feb, [facility] [place] [facility] [address] [id number] [place] [address] Feb, [facility] [place] [facility] [address] [id number] [place] [address] Feb, [facility] [place] [facility] [address] [id number] [place] [address] Feb, [facility] [place] [facility] [address] [id number] [place] [address] Feb, [facility] [place] [facility] [address] [id number] [place] [address] Feb, [facility] [place] [facility] [address] [id number] [place] [address] Feb, [facility] [place] [facility] [address] [id number], [place] [address] Dec, [facility] [place] [facility] [address] [id number], [place] [address] 24 Dec, 2012 [facility] [place] [facility] [address] [id number], [place] [address] Dec, [facility] [place] [facility] [address] [id number], [place] [address] Dec, [facility] [place] [facility] [address] [id number], [place] [address] Dec, [facility] [place] [facility] [address] [id number] [place] [address] 16 Dec, 2012 [facility] [address] [id number] [place] [address] 14 Dec, 2012 [facility] [place] [facility] [address] [id number] [place] [address] 14 Dec, 2012 [facility] [address] [id number] [place] [address]- [address] 10 Dec, 2012 [facility] [place] [facility] [address] [id number] [place] [address]- [address]67 10 Dec, 2012 [facility] [address] [id number] [place] [address]- [address] 10 Dec, 2012 [facility] [place] [facility] [address] [address] [id number] [place] [address] 10 Dec, 2012 [facility] [place] [facility] [address] [id number] [place] [address] 03 Dec, 2012 [facility] [address] [id number] [place] [address] 25 Nov, 2012 [facility] [place] [facility] [address] [id number] [place] [address] 5383 20 Nov, 2012 [facility] [place] [facility] [address] [id number] [place] [address] 2747 18 Sep, 2012 [facility] [place] [facility] [address] [id number] [place] [address] 2547 16 Sep, 2012 [facility] [place] [facility] [address] [id number] [place] [address] 2541 12 Sep, 2012 [facility] [place] [facility] [address] [id number] [place] [address] 4873 11 Nov, 2012 [facility] [place] [facility] [address] [id number] [place] [address] 2547 05 Sep, 2012 [facility] [place] [facility] [address] [id number] [place] [address] 4[address] Oct, [facility] [place] [facility] [address] [id number] [place] [address] 0149 Oct, [facility] [place] [facility] [address] [id number] [place] [address] 8942 Sep, [facility] [place] [facility] [address] [id number] [place] [address] 2129 Sep, [facility] [place] [facility] [address] [id number] [place] [address] 8938 Sep, [facility] [place] [facility] [address] [id number] [place] [address] 8574 Sep, [facility] [place] [facility] [address] [id number] [place] [address]- 1018 Sep, [facility] [place] [facility] [address] [id number] [place] [address]- 6685 Sep, [facility] [place] [facility] [address] [id number] [place] [address] 2522 Sep, [facility] [place] [facility] [address] [id number] [place] [address]- 2272 Aug, [facility] [place] [facility] [address] [id number] [place] [address] 1050 Aug, [facility] [place] [facility] [address] [id number] [place] [address]- 9230 16 Aug, 2012 [facility] [place] [facility] [address] [id number], [place] [address] 480[address] 13 Aug, 2012 [facility] [place] [facility] [address] [id number] [place] [address]- 4905 11 Aug, 2012 [facility] [place] [facility] [address] [id number] [place] [address]- 1660 10 Aug, 2012 [facility] [place] [facility] [address] [id number] [place] [address] 04 Aug, 2012 [facility] [place] [facility] [address] [id number], [place] [address] 47[address] Aug, [facility] [address] [id number] [place] [address] 6517 July, [facility] [address] [id number] [place] [address] 2926 July, [facility] [address] [id number] [place] [address] 2016 July, [facility] [address] [id number] [place] [id number] July, [facility] [address] [id number] [place] [address] 5598 July, [facility] [address] [id number] [place] [address] 1816 Jun, [facility] [address] [id number] [place] [address]- 5562 May, [facility] [address] [id number] [place] [address]- 8458 May, [facility] [address] [id number] [place] [address]- 6293 May, [facility] [address] [id number] [place] [address]- 3694 Apr, [facility] [address] [id number] [place] [address]- 8886 Apr, [facility] [address] [id number] [place] [address] 2546 Apr, [facility] [address] [id number] [place] [address]- 4827 Mar, [facility] [address] [id number] [place] [address] 5719 Mar, [facility] [address] [id number] [place] [address]- 9991 Mar, [facility] [address] [id number] [place] [address]- 1058 14 Mar, 2012 [facility] [place] [facility] [address] [id number] [place] [address]- 2637 10 Mar, 2012 [facility] [place] [facility] [address] [id number] [place] [address]- 2546 09 Mar, 2012 [facility] [place] [facility] [address] [id number] [place] [address]- 4615 Mar, [facility] [place] [facility] [address] [id number] [place] [address]- 9490 Feb, [facility] [place] [facility] [address] [id number] [place] [address]- 9010 Feb, [facility] [place] [facility] [address] [id number] [place] [address]- 2686 Feb, [facility] [place] [facility] [address] [id number] [place] [address]- 2596 Feb, [facility] [place] [facility] [address] [id number] [place] [address]- 4766 Feb, [facility] [place] [facility] [address] [id number] [place] [address]- 7867 Feb, [facility] [place] [facility] [address] [id number] [place] [address]- 2889 Feb, [facility] [place] [facility] [address] [id number] [place] [address]- 9175 Feb, [facility] [place] [facility] [address] [id number] [place] [address]- 6123 Jan, [facility] [place] [facility] [address] [id number] [place] [address]- 9946 Jan, [facility] [place] [facility] [address] [id number] [place] [address]- 6616 Jan, [facility] [place] [facility] [address] [id number] [place] [address]- 2761 Jan, [facility] [place] [facility] [address] [id number] [place] [address]- 5583 Jan, [facility] [place] [facility] [address] [id number], [place] [address]- 6539 Jan, [facility] [place] [facility] [address] [facility] [id number] [place] [address]- 2835 Jan, [facility] [place] [facility] [address] [id number], [place] [address] 2005 Jan, [facility] [place] [facility] [address] [id number] [place] [address]- 6079 Jan, [facility] [place] [facility] [address] [id number], [place] [address] 8203 Jan, [facility] [place] [facility] [address] [facility] [id number], [place] [address]- 3100 Jan, [facility] [place] [facility] [address] [id number], [place] [address]- 7230 Jan, [facility] [place] [facility] [address] [id number], [place] [address]- 7338 Jan, [facility] [place] [facility] [address] [facility] [id number], [place] [address]- 1212 Jan, [facility] [place] [facility] [address] [facility] [id number], [place] [address]- 1785 Jan, [facility] [place] [facility] [address] [id number], [place] [address]- 7881 Jan, [facility] [place] [facility] [address] [id number], [place] [address]- 9749 Dec, [facility] [place] [facility] [address] [id number], [place] [address]- 3992 Dec, [facility] [place] [facility] [address] [facility] [id number], [place] [address]- 9252 Dec, [facility] [place] [facility] [address] [id number] [place] [address]- 7404 16 Dec, 2011 [facility] [place] [facility] [address] [id number] [place] [address]- 9273 Dec, [facility] [place] [facility] [address] [id number] [place] [address]- 9810 Dec, [facility] [place] [facility] [address] [id number] [place] [address]- 8447 Dec, [facility] [place] [facility] [address] [id number] [place] [address]- 6134 Dec, [facility] [place] [facility] [address] [id number] [place] [address]- 0853 Dec, [facility] [place] [facility] [address] [id number] [place] [address]- 5171 05 Dec, 2011 [facility] [place] [facility] [address] [id number] [place] [address]- 7548 18 Nov, 2011 [facility] [place] [facility] [address] [id number] [place] [address]- 3941 13 Nov, 2011 [facility] [place] [facility] [address] [id number] [place] [address]- 8988 24 Oct, 2011 [facility] [place] [facility] [address] [id number] [place] [address]- 9230 Oct, [facility] [place] [facility] [address] [id number] [place] [address]- 2280 17 Oct, 2011 [facility] [place] [facility] [address] [id number] [place] [address]- 4180 16 Oct, 2011 [facility] [place] [facility] [address] [id number] [place] [address]- 8260 15 Oct, 2011 [facility] [place] [facility] [address] [id number] [place] [address]- 9278 Oct, [facility] [place] [facility] [address] [id number] [place] [address]- 5152 Oct, [facility] [place] [facility] [address] [id number] [place] [address]- 5595 Sep, [facility] [place] [facility] [address] [id number] [place] [address]- 9216 Aug, [facility] [place] [facility] [address] [id number] [place] [address]- 2116 Aug, [facility] [place] [facility] [address] [id number] [place] [address]- 6840 Aug, [facility] [address] [id number] [place] [address]- 0363 Aug, [facility] [place] [facility] [address] [id number] [place] [address]- 8276 Aug, [facility] [address] [id number] [place] [address]- 8891 July, [facility] [address] [id number] [place] [address]- 1085 July, [facility] [place] [facility] [address] [id number] [place] [address]- 1278 July, [facility] [place] [facility] [address] [id number] [place] [address]- 1714 Jun, [facility] [place] [facility] [address] [id number] [place] [address]- 8707 Jun, [facility] [place] [facility] [address] [id number] [place] [address]- 5288 Jun, [facility] [place] [facility] [address] [id number] [place] [address]- 7149 Jun, [facility] [place] [facility] [address] [id number] [place] [address]- 8016 May, [facility] [place] [facility] [address] [id number] [place] [address]- 6768 May, [facility] [place] [facility] [address] [id number] [place] [address]- 7154 29 May, 2011 [facility] [place] [facility] [address] [id number] [place] [address]- 7478 28 May, 2011 [facility] [place] [facility] [address] [id number] [place] [address]- 9106 23 May, 2011 [facility] [place] [facility] [address] [id number] [place] [address]- 0216 22 May, 2011 [facility] [place] [facility] [address] [id number] [place] [address]- 5363 21 May, 2011 [facility] [place] [facility] [address] [id number] [place] [address]- 7549 19 May, 2011 [facility] [place] [facility] [address] [id number] [place] [address]- 7709 08 May, 2011 [facility] [place] [facility] [address] [id number] [place] [address]- 1780 05 May, 2011 [facility] [place] [facility] [address] [id number] [place] [address]- 2212 02 May, 2011 [facility] [place] [facility] [address] [id number] [place] [address]- 3306 May, [facility] [place] [facility] [address] [id number] [place] [address]- 3200 Mar, [facility] [place] [facility] [address] [id number] [place] [address]- 3439 Mar, [facility] [place] [facility] [address] [id number] [place] [address]- 1855 Feb, [facility] [place] [facility] [address] [id number] [place] [address]- 7678 Feb, [facility] [place] [facility] [address] [id number] [place] [address]261 Feb, [facility] [place] [facility] [address] [id number] [place] [address]- 8579 15 Feb, 2011 [facility] [place] [facility] [address] [id number] [place] [address]- 2569 13 Feb, 2011 [facility] [address] [id number] [place] [address]- 8390 13 Feb, 2011 [facility] [place] [facility] [address] [id number] [place] [address]- 9784 13 Feb, 2011 [facility] [address] [id number] [place] [address]- 3491 28 Jan, 2011 [facility] [place] [facility] [address] [id number] [place] [address]- 9402 Jan, [facility] [address] [id number] [place] [address]- 7652 Jan, [facility] [place] [facility] [address] [id number] [place] [address]- 2969 17 Jan, 2011 [facility] [place] [facility] [address] [id number] [place] [address]- 9427 Jan, [facility] [address] [id number] [place] [address]- 8071 Jan, [facility] [place] [facility] [address] [id number] [place] [address]- 4385 Dec, [facility] [address] [id number] [place] [address]- 1488 Dec, [facility] [place] [facility] [address] [id number] [place] [address]- 2691 Dec, [facility] [place] [facility] [address] [id number] [place] [address]- 9290 July, [facility] [place] [facility] [address] [id number] [place] [address]- 0709 July, [facility] [place] [facility] [address] [id number] [place] [address]- 5774 08 Feb, 2010 [facility] [place] [facility] [address] [id number] [place] [address]- 8406 Jan, [facility] [place] [facility] [address] [id number] [place] [address]- 3984 Dec, [facility] [place] [facility] [address] [id number] [place] [address]- 8437 Dec, [facility] [place] [facility] [address] [id number] [place] [address]- 4176 Sep, [facility] [place] [facility] [address] [id number] [place] [address]- 7229 Aug, [facility] [place] [facility] [address] [id number] [place] [address]- 1159 Jun, [facility] [place] [facility] [address] [id number] [place] [address]- 4290 Jun, [facility] [place] [facility] [address] [id number] [place] [address]- 0791 Jan, [facility] [place] [facility] [address] [id number], [place] [address]- 8184 Jan, [facility] [place] [facility] [address] [id number] [place] [address]- 5198 Jan, [facility] [place] [facility] [address] [id number], [place] [address]- 3407 Jan, [facility] [place] [facility] [address] [id number], [place] [address]- 4391 Dec, [facility] [place] [facility] [address] [id number], [place] [address]- 7361 Dec, [facility] [place] [facility] [address] [id number], [place] [address]- 4927 Dec, [facility] [place] [facility] [address] [id number][place] 8775 Nov, [facility] [place] [facility] [address] [id number][place] [address]691 July, [facility] [place] [facility] [address] [id number], [place] [address]- 8760 May, [facility] [address] [facility] [id number], [place] [address]- 2344 Apr, [facility] [address] [facility] [id number], [place] [address]- 3746 Feb, [facility] [address] [facility] [id number], [place] [address]- 3359 Dec, IMMUNIZATIONS No Known Immunizations SOCIAL HISTORY Never Assessed REASON FOR VISIT Diabetes GLEN Trevino PLAN OF CARE Activity Details Follow Up 3 Months Reason:DM VITAL SIGNS Height 64 in 2018-03-07 Weight 183.3 lbs 2018-03-07 Temperature 98.2 degrees Fahrenheit 2018-03-07 Heart Rate 68 bpm 2018-03-07 Respiratory Rate 18 2018-03-07 BMI 31.46 kg/m2 2018-03-07 Blood pressure systolic 122 mmHg 2018-03-07 Blood pressure diastolic 62 mmHg 2018-03-07 MEDICATIONS Medication Instructions Dosage Frequency Start Date End Date Duration Status Farxiga 10 MG Orally Once a day 1 tablet 24h Apr, 90 days Active Test strips Contour test strips 2 times a day test blood sugar 12h Aug, Active Actos 45 MG Orally Once a day 1 tablet 24h Apr, 90 days Active NovoFine 32G X 6 MM subcutaneously 3 times a day as directed for use with Victoza and Novolog Pens 8h July, 90 days Active Amaryl 4 MG Orally Once a day in AM 1 tablet with breakfast or the first main meal of the day Sep, 30 day(s) Active Melatonin 5 MG Orally Once a day 1 tablet at bedtime as needed with food 24h Active Ativan 0.5 MG Orally Once a day, no early refills 1 tablet as needed Sep, Active Questran Light 4 GM/DOSE Orally Twice a day 1 scoop 12h Feb, 30 day(s) Active MetFORMIN HCl ER 500 MG 1 tab with evening meal Nov, 30 days Active Victoza 18 MG/3ML Subcutaneous Once a day inject 1.8 ml 24h 90 days Active Migraine Relief 250-250-65 MG Orally Once a day 2 tablets 24h Active Aleve 220 MG Orally every 12 hrs 1 tablet with food or milk as needed 12h 10 Nov, 2017 Active Lamictal 200 MG Orally every evening 1 tablet May, Active Tizanidine HCl 4 MG Orally Once a day 1 tablet as needed at bedtime 24h 30 days Active Simvastatin 80 MG Orally Once a day 1 tablet in the evening 24h Sep, 90 days Active Toprol XL 25 mg take 1 tablet by Oral route 1 time per day take at hs 10 May, 2013 Active NovoLog Mix 70/30 Flexpen (70-30) 100 UNIT/ML Subcutaneous 2 times a day Inject 120 units 12h Active Celexa 40 MG Orally Once a day 1 tablet 24h May, Active Aspirin Adult Low Strength 81 MG Orally Once a day 1 tablet 24h Active Fenofibrate 160 MG Orally Once a day 1 tablet with food 24h Nov, 105 days Active RESULTS Name Result Date Reference Range A1C (IN HOUSE) 2018-03-07 A1C IN HOUSE 13.1 4.3 - 5.6 % Previous A1c 12.6 Lot [id number] Exp date 11/2019 PROCEDURES Procedure Date Ordered Result Body Site GLYCATED HEMOGLOBIN TEST Mar 07, 2018 INSTRUCTIONS MEDICATIONS ADMINISTERED No Known Medications [...]
--- OUTSIDE RECORDS SUMMARY | 2018-06-14 14:17 | XMS REPORT ---
Author Author BEVERLY TAO Organization [facility] Address [address] [place] [address] Care Team Providers Care Associate Principal Name Role Phone BEVERLY TAO Unavailable PROBLEMS Type Condition ICD9-CM Code FOG16-WG Code Onset Dates Condition Status SNOMED Code Problem Type 2 diabetes mellitus with complication E11.8 Active 447421745 Problem Acute bilateral low back pain with right-sided sciatica M54.41 Active 536729705 Problem Hyperlipidemia, unspecified E78.5 Active 06180559 Problem Hypertriglyceridemia E78.1 Active 001483099 Problem Obesity, unspecified 278.00 Active 831207055 Problem Other chronic pain G89.29 Active 79892086 Problem Eye exam normal Z01.00 Active 430472167 Problem Post laminectomy syndrome M96.1 Active 53362829 Problem senior living current use of insulin Z79.4 Active 026938191 Problem New daily persistent headache G44.52 Active 659586102 Problem Lumbago with sciatica, left side M54.42 Active 285969667 Problem Type 2 diabetes mellitus with hyperglycemia E11.65 Active 17000167 Problem Extreme poverty Z59.5 Active 86018914 Problem 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 Active 22333791 Problem Hyperlipidemia 272.4 Active 64333082 Problem Bipolar disorder, in partial remission, most recent episode manic F31.73 Active 55616351 Problem Irritable bowel syndrome with diarrhea K58.0 Active 190632043 Problem Lumbar radiculopathy M54.16 Active 892805154 Problem Non compliance with medical treatment Z91.19 Active 5249355 Problem Bipolar 1 disorder F31.9 Active 207510936 Problem Diabetes E11.9 Active 482783273 Problem 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 Active 564426972 ALLERGIES No Information ENCOUNTERS Encounter Location Date Diagnosis [facility] [address] [facility] [id number] [address] Mar, [facility] [id number] [place] [address] 23300- 3179 Mar, [facility] [id number] [place] [address] 90116- 7652 Mar, [facility] [id number] [place] [address] 93298- 4283 Feb, [facility] [id number] [place] [address] 78311- 8622 Feb, Bipolar 1 disorder F31.9 ; 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 and Extreme poverty Z59.5 [facility] [id number] [place] [address] 42186- 9929 Feb, [facility] [id number] [place] [address] 53426- 1414 Feb, Diabetes E11.9 ; Hyperglycemia R73.9 and Diarrhea, unspecified R19.7 [facility] [id number] [place] [address] 66044- 9874 Feb, Diarrhea, unspecified type R19.7 ; Abdominal pain R10.9 and Encounter for immunization Z23 [facility] [id number] [place] [address] 55468- 3857 Jan, Bipolar 1 disorder F31.9 ; 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 and Extreme poverty Z59.5 [facility] [id number] [place] [address] 79202- 2999 Dec, Bipolar 1 disorder F31.9 ; 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 and Extreme poverty Z59.5 [facility] [id number] [place] [address] 53934- 9896 Nov, [facility] [id number] [place] [address] 69643- 0848 Nov, Hypertriglyceridemia E78.1 [facility] [id number] [place] [address] 35591- 4803 Nov, Bipolar 1 disorder F31.9 ; 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 and Extreme poverty Z59.5 [facility] [id number] [place] [address] 74946- 5375 Nov, Type 2 diabetes mellitus with complication E11.8 [facility] [id number] [place] [address] 99446- 3106 18 Nov, 2017 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 and Bipolar disorder, in partial remission, most recent episode manic F31.73 [facility] [id number] [place] [address] 86002- 4550 12 Nov, 2017 Type 2 diabetes mellitus with complication E11.[address] 61016- 9322 Nov, Bipolar 1 disorder F31.9 ; 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 and Extreme poverty Z59.5 [facility] [facility] [address] 49854- 6021 Nov, Type 2 diabetes mellitus with complication E11.8 ; Pain of left upper arm M79.622 ; Pain in right upper arm M79.621 ; Hyperglycemia R73.9 ; Lumbago with sciatica, left side M54.42 and Other chronic pain G89.29 [facility] [id number] [place] [address] 41685- 3498 Oct, Bipolar 1 disorder F31.9 ; 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 and Extreme poverty Z59.5 [facility] [id number] [place] [address] 40796- 9063 Oct, Type 2 diabetes mellitus with hyperglycemia E11.65 ; senior living current use of insulin Z79.4 and Other acute gastritis without hemorrhage K29.00 [place] [id number] [place] [address] 28151- 5894 Oct, Bipolar 1 disorder F31.9 ; 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 and Extreme poverty Z59.5 [place] [id number] [place] [address] 61504- 2742 Sep, Diarrhea, unspecified R19.7 and Vomiting, unspecified R11.10 [facility] [id number] [place] [address] 88755- 4229 Aug, Type 2 diabetes mellitus with complication E11.8 [facility] [id number] [place] [address] 25238- 9400 Aug, [facility] [id number] [place] [address] 21742- 5800 Aug, Bipolar 1 disorder F31.9 ; 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 and Extreme poverty Z59.5 [facility] [id number] [place] [address] 16075- 1053 Aug, 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 and Bipolar disorder, in partial remission, most recent episode manic F31.73 [facility] [id number] [place] [address] 48131- 9744 Aug, Bipolar 1 disorder F31.9 [facility] [id number] [place] [address] 83584- 2300 Aug, [facility] [id number] [place] [address] 08809- 1408 Aug, [facility] [id number] [place] [address] 93505- 1614 Aug, Bipolar 1 disorder F31.9 ; 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 and Extreme poverty Z59.5 [facility] [id number] [place] [address] 67990- 2929 July, Type 2 diabetes mellitus with complication E11.8 [facility] [id number] [place] [address] 79358- 7437 July, Bipolar 1 disorder F31.9 ; 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 and Extreme poverty Z59.5 [facility] [id number] [place] [address] 43850- 1775 Jun, Bipolar 1 disorder F31.9 ; 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 and Extreme poverty Z59.5 [facility] [id number] [place] [address] 79523- 3344 Jun, Bipolar 1 disorder F31.9 ; 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 and Extreme poverty Z59.5 [facility] [id number] [place] [address] 05707- 3748 Jun, Bipolar 1 disorder F31.9 ; 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 and Extreme poverty Z59.5 [facility] [id number] [place] [address] 72030- 5119 May, Urinary tract infection without hematuria, site unspecified N39.0 [facility] [id number] [place] [address] 74471- 4282 May, Bipolar 1 disorder F31.9 ; 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 and Extreme poverty Z59.5 [facility] [id number] [place] [address] 34745- 4685 Apr, Diabetes E11.9 and Breast cancer screening Z12.31 [facility] [id number] [place] [address] 508364- 7612 Apr, Bipolar 1 disorder F31.9 and 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 [facility] [id number] [place] [address] 91484- 5067 Mar, Bipolar 1 disorder F31.9 ; 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 and Extreme poverty Z59.5 [facility] [id number] [place] [address] 43279- 6595 Mar, New daily persistent headache G44.52 ; Leg pain 729.5 and History of carpal tunnel release Z98.890 [facility] [id number] [place] [address] 15539- 7071 Mar, Hyperlipidemia, unspecified E78.5 [facility] [id number] [place] [address] 11003- 7542 Mar, Bipolar 1 disorder F31.9 ; 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 and Extreme poverty Z59.5 [facility] [id number] [place] [address] 49204- 9472 Feb, Bipolar 1 disorder F31.9 ; 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 and Extreme poverty Z59.5 [facility] [id number] [place] [address] 04475- 7715 Feb, Diabetes E11.9 [facility] [address] 89498- 2892 Feb, Viral syndrome B34.9 [facility] [address] 32614- 3381 Jan, Other viral agents as the cause of diseases classified elsewhere B97.89 and Acute upper respiratory infection, unspecified J06.9 [facility] [id number] [place] [address] 01313- 3885 Jan, Bipolar 1 disorder F31.9 and 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 [facility] [id number] [place] [address] 86247- 7177 Jan, Bipolar 1 disorder F31.9 ; 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 and Extreme poverty Z59.5 [facility] [id number] [place] [address] 59984- 4133 Dec, Diabetes E11.9 [facility] [address] 61041- 8452 Dec, Diabetes E11.9 and Encounter for immunization Z23 [facility] [id number] [place] [address] 33071- 7909 Dec, Bipolar 1 disorder F31.9 ; 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 and Extreme poverty Z59.5 [facility] [id number] [place] [address] 03240- 4147 Dec, Back pain M54.9 [facility] [address] 45967- 7079 Nov, [facility] [id number] [place] [address] 66360- 9729 Nov, Bipolar 1 disorder F31.9 ; 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 and Extreme poverty Z59.5 [facility] [id number] [place] [address] 83702- 8094 Nov, Bipolar 1 disorder F31.9 ; 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 and Extreme poverty Z59.5 [facility] [id number] [place] [address] 49399- 0859 Oct, 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 and Bipolar 1 disorder F31.9 [facility] [id number] [place] [address] 54802- 2738 Oct, Bipolar 1 disorder F31.9 ; 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 and Extreme poverty Z59.5 [facility] [id number] [place] [address] 94889- 5876 Oct, Back pain M54.9 [facility] [id number] [place] [address] 56390- 4771 Oct, 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 and Type 2 diabetes mellitus with complication E11.8 [facility] [id number] [place] [address] 45210- 7784 Sep, Bipolar 1 disorder F31.9 ; 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 and Extreme poverty Z59.5 [facility] [id number] [place] [address] 52459- 5579 Sep, 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 and Bipolar 1 disorder F31.9 [facility] [id number] [place] [address] 16442- 3225 Sep, Bipolar 1 disorder F31.9 ; 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 and Extreme poverty Z59.5 [facility] [id number] [place] [address] 88302- 8456 Aug, Diabetes E11.9 ; Hyperlipidemia, unspecified E78.5 and Lumbar radiculopathy M54.16 [facility] [id number] [place] [address] 87730- 5509 Aug, Bipolar 1 disorder F31.9 ; 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 and Extreme poverty Z59.5 [facility] [id number] [place] [address] 08801- 6928 Aug, [facility] [id number] [place] [address] 95593- 8865 Aug, [facility] [id number] [place] [address] 05231- 7876 Aug, [facility] [id number] [place] [address] 12658- 9502 July, [facility] [id number] [place] [address] 51472- 2215 July, Acute bilateral low back pain with right-sided sciatica M54.41 [facility] [id number] [place] [address] 00130- 1384 July, Bipolar 1 disorder F31.9 ; 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 and Extreme poverty Z59.5 [facility] [id number] [place] [address] 74932- 0663 July, Back pain M54.9 and Diabetes E11.9 [facility] [id number] [place] [address] 99823- 4145 Jun, Bipolar 1 disorder F31.9 ; 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 and Extreme poverty Z59.5 [facility] [id number] [place] [address] 88281- 0482 Jun, Bipolar 1 disorder F31.9 ; 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 and Extreme poverty Z59.5 [facility] [id number] [place] [address] 31258- 9794 May, Visit for pelvic exam Z01.419 ; Acute vaginitis N76.0 and Diabetes E11.9 [facility] [id number] [place] [address] 09472- 7232 16 May, 2016 Bipolar 1 disorder F31.9 ; 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 and Extreme poverty Z59.5 [facility] [id number] [place] [address] 25162- 6600 May, [facility] [facility] [address] 54412- 3125 May, [facility] [id number] [place] [address] 51691- 7904 May, Bipolar 1 disorder F31.9 ; 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 and Extreme poverty Z59.5 [facility] [id number] [place] [address] 36843- 4594 May, Hyperlipidemia, unspecified E78.5 [facility] [address] 68661- 0645 Apr, Breast cancer screening Z12.39 [facility] [id number] [place] [address] 13426- 9645 Mar, [facility] [id number] [place] [address] 18371- 1176 Mar, Bipolar disorder, current episode mixed, unspecified F31.60 [facility] [id number] [place] [address] 38387- 9941 Mar, Bipolar 1 disorder F31.9 ; 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 and Extreme poverty Z59.5 [facility] [id number] [place] [address] 91055- 3376 Feb, Acute nasopharyngitis J00 [facility] [id number] [place] [address] 41328- 1488 Feb, Dental examination Z01.20 [facility] [id number] [place] [address] 51158- 7132 21 Dec, 2016 Dental cavities K02.9 and Chronic periodontitis, unspecified K05.30 [facility] [id number] [place] [address] 20409- 6525 13 Feb, 2016 Low back pain M54.5 and Extreme poverty Z59.5 [facility] [id number] [place] [address] 64996- 2132 08 Feb, 2016 [facility] [address] 98665- 2968 05 Feb, 2016 Routine gynecological examination V72.31 ; Breast cancer screening Z12.39 and Herpes simplex type 1 infection B00.9 [facility] [facility] [address] 33123- 4166 02 Feb, 2016 Diabetes E11.9 [facility] [id number] [place] [address] 67126- 0047 Feb, Encounter for dental examination and cleaning without abnormal findings Z01.20 [facility] [id number] [place] [address] 31718- 7527 22 Jan, 2016 Hyperlipidemia, unspecified E78.5 [facility] [id number] [place] [address] 85308- 7967 22 Jan, 2016 Bipolar 1 disorder F31.9 ; 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 and Extreme poverty Z59.5 [facility] [id number] [place] [address] 98194- 2917 18 Jan, 2016 Diabetes E11.9 [facility] [id number] [place] [address] 30560- 8198 17 Jan, 2016 Diabetes E11.9 [facility] [id number] [place] [address] 93700- 4042 14 Dec, 2015 Bipolar 1 disorder F31.9 ; 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 and Extreme poverty Z59.5 [facility] [id number] [place] [address] 05005- 5010 13 Dec, 2015 Bipolar disorder, current episode mixed, unspecified F31.60 and 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 [facility] [id number] [place] [address] 32708- 7749 16 Nov, 2015 Bipolar 1 disorder F31.9 ; 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 ; Extreme poverty Z59.5 and Non compliance with medical treatment Z91.19 [facility] [id number] [place] [address] 13893- 2556 Oct, [facility] [id number] [place] [address] 89743- 8377 Oct, Dental caries K02.9 [facility] [id number] [place] [address] 06556- 7077 Oct, Low back pain M54.5 and Other chronic pain G89.29 [facility] [id number] [place] [address] 80416- 0627 Oct, Bipolar 1 disorder F31.9 ; 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 ; Extreme poverty Z59.5 and Non compliance with medical treatment Z91.19 [place] [place] [id number] [place] [address] 79660- 2265 Oct, [facility] [id number] [place] [address] 25031- 6866 Oct, [facility] [id number] [place] [address] 83515- 7231 Oct, Dental examination Z01.20 [facility] [id number] [place] [address] 25481- 3218 Oct, Bipolar 1 disorder F31.9 ; 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 ; Extreme poverty Z59.5 and Non compliance with medical treatment Z91.19 [facility] [id number] [place] [address] 98566- 8628 Oct, [facility] [id number] [place] [address] 71764- 5033 Sep, Type 2 diabetes mellitus with complication E11.8 [facility] [facility] [address] [place] [address]- 1875 Sep, Bipolar disorder, current episode mixed, unspecified F31.60 [facility] [id number] [place] [address] 48497- 5358 Sep, Bipolar disorder, current episode mixed, unspecified F31.60 [facility] [id number] [place] [address] 63364- 7358 Sep, Bipolar disorder, in partial remission, most recent episode manic F31.73 ; 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 ; Extreme poverty Z59.5 and Non compliance with medical treatment Z91.19 [facility] [facility] [id number] [place] [address] 80755- 4471 Aug, Bipolar disorder, in partial remission, most recent episode manic F31.73 ; 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 ; Extreme poverty Z59.5 and Non compliance with medical treatment Z91.19 [facility] [id number] [place] [address] 18647- 2338 Aug, Bipolar disorder, in partial remission, most recent episode manic F31.73 ; 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 ; Extreme poverty Z59.5 and Non compliance with medical treatment Z91.19 [facility] [id number] [place] [address] 06914- 4190 Aug, [facility] [id number] [place] [address] 80312- 0062 July, Bipolar disorder, in partial remission, most recent episode manic F31.73 ; 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 ; Extreme poverty Z59.5 and Non compliance with medical treatment Z91.19 [facility] [id number] [place] [address] 87861- 5458 July, Bipolar disorder, current episode mixed, unspecified F31.60 [facility] [address] [address]- 9276 July, Bipolar disorder, in partial remission, most recent episode manic F31.73 ; 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 ; Extreme poverty Z59.5 and Non compliance with medical treatment Z91.19 [facility] [id number] [place] [address] 34553- 8611 July, 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 and Chronic pain G89.29 [facility] [id number] [place] [address] 30994- 6787 Jun, 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 Z79.891 and Bipolar 1 disorder F31.9 [facility] [id number] [place] [address] 09956- 1896 Jun, [facility] [id number] [place] [address] 22300- 9677 Jun, [facility] [facility] [id number] [place] [address] 34032- 4322 Jun, [facility] [id number] [place] [address] 70253- 4648 Jun, Bipolar disorder, in partial remission, most recent episode manic F31.73 ; 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 and Non compliance with medical treatment Z91.19 [facility] [id number] [place] [address] 44534- 0987 May, Bipolar disorder, in partial remission, most recent episode manic F31.73 ; 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 and Non compliance with medical treatment Z91.19 [facility] [facility] [id number] [place] [address] 80644- 3009 May, Bipolar disorder, in partial remission, most recent episode manic F31.73 [facility] [id number] [place] [address] 60778- 4202 May, Diabetes E11.9 and Chronic pain G89.29 [facility] [id number] [place] [address] 62882- 9546 14 May, 2015 [facility] [id number] [place] [address] 70860- 7838 May, Bipolar disorder, in partial remission, most recent episode manic F31.73 ; Non compliance with medical treatment Z91.19 and 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 [facility] [id number] [place] [address] 09153- 6002 May, Type 2 diabetes mellitus with complication E11.8 and Back pain M54.9 [place] [id number] [place] [address] 19038- 6765 May, Bipolar disorder, in partial remission, most recent episode manic F31.73 and 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 [facility] [facility] [address] 74812- 3642 Apr, [facility] [facility] [address] 63439- 0384 Apr, [address] 37693- 4136 Apr, [facility] [id number] [place] [address] 72486- 3970 Apr, Diabetes E11.9 ; Irritable bowel syndrome with diarrhea K58.0 and Lumbar radiculopathy M54.16 [facility] [id number] [place] [address] 66864- 5013 Apr, Breast screening Z12.39 [place] [id number] [place] [address] 85226- 1697 Apr, Bipolar disorder, in partial remission, most recent episode manic F31.73 ; Non compliance with medical treatment Z91.19 and 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 [facility] [id number] [place] [address] 15130- 1865 Mar, Edema, unspecified type R60.9 and Type 2 diabetes mellitus with complication E11.8 [facility] [id number] [place] [address] 90057- 0194 Mar, Bipolar disorder, in partial remission, most recent episode manic F31.73 ; Non compliance with medical treatment Z91.19 ; 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 and Extreme poverty Z59.5 [facility] [facility] [id number] [place] [address] 32226- 8431 14 Mar, 2015 Bipolar disorder, current episode mixed, unspecified F31.60 ; 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 ; Extreme poverty Z59.5 and Generalized anxiety disorder F41.1 [facility] [id number] [place] [address] 76156- 1816 12 Mar, 2015 Bipolar disorder, in partial remission, most recent episode manic F31.73 ; 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 and Extreme poverty Z59.5 [id number] [place] [address] 67875- 6593 Feb, Bipolar disorder, in partial remission, most recent episode manic F31.73 ; 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 and Extreme poverty Z59.5 [address] [id number] [place] [address] 08100- 8597 Feb, Bipolar disorder, in partial remission, most recent episode manic F31.73 ; 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 and Extreme poverty Z59.5 [id number] [place] [address] 17011- 3430 Feb, [address] [address] [id number] [place] [address] 03346- 5962 Jan, Type 2 diabetes mellitus with complication E11.8 and Petechiae R23.3 [address] [address] [id number] [place] [address] 11047- 7627 Jan, Type 2 diabetes mellitus with complication E11.8 ; Edema, unspecified R60.9 ; Petechiae R23.3 and Diabetes E11.9 [address] [id number] [place] [address] 12713- 5355 Jan, Bipolar disorder, in partial remission, most recent episode manic F31.73 ; 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 and Extreme poverty Z59.5 [address] [id number] [place] [address] 27732- 2349 Jan, Bipolar disorder, in partial remission, most recent episode manic F31.73 ; 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 and Extreme poverty Z59.5 [address] [id number] [place] [address] 84925- 5453 Dec, Bipolar disorder, in partial remission, most recent episode manic F31.73 [address] [address] [address] 12373- 8739 Dec, Edema, due to unspecified malnutrition type, unspecified edema R60.9 and Essential hypertension I10 [address] [address]45- 6558 Dec, Bipolar disorder, in partial remission, most recent episode manic F31.73 [address] [address] 73808- 4681 Nov, Bipolar I disorder, most recent episode (or current) mixed, unspecified 296.60 [address] 53428- 5013 Nov, Stress incontinence, female 625.6 ; Back pain 724.5 and Leg pain 729.5 [address] [id number] [place] [address] 46560- 7183 Nov, Generalized anxiety disorder 300.02 and Bipolar II disorder 296.89 [address] [address] 29450- 9015 Nov, Bipolar I disorder, most recent episode (or current) mixed, unspecified 296.60 [address] 39421- 9981 Oct, [address] [id number] [place] [address] 01733- 8202 Oct, [address] [address] 90323- 2398 Oct, [facility] [id number] [address] 3114 Oct, Bipolar I disorder, most recent episode (or current) mixed, unspecified 296.60 [facility] [address], [place] [address]- 2712 Sep, Diabetes 250.00 [facility] [address], [place] [address]- 0723 Sep, Bipolar I disorder, most recent episode (or current) mixed, unspecified 296.60 [facility] [address], [place] [address]- 8525 Sep, [facility] [address], [place] [address]- 2475 Sep, [facility] [address], [place] [address]- 1289 Sep, Bipolar I disorder, most recent episode (or current) mixed, unspecified 296.60 [facility] [address], [place] [address]- 8111 Sep, Bipolar I disorder, most recent episode (or current) mixed, unspecified 296.60 [facility] [address], [place] [address]- 3310 Sep, [facility] [id number] 2495 Sep, Anxiety 300.00 ; Diabetes 250.00 and Hyperlipidemia 272.4 [facility] [address], [place] [address]- 6622 Aug, [facility] [address] 3875 Aug, [facility] [address] [id number] 4688 Aug, [facility] [id number] 8306 Aug, Bipolar I disorder, most recent episode (or current) mixed, unspecified 296.60 [facility] [id number] [place] [address] 57215- 6488 Aug, Generalized anxiety disorder 300.02 and Bipolar II disorder 296.89 [facility] [address], [place] [address]- 9622 July, Bipolar I disorder, most recent episode (or current) mixed, unspecified 296.60 [facility] [id number] [place] [address] 88131- 4814 July, Cough 786.2 [facility] [id number] [place] [address] 524451- 8668 July, Bipolar I disorder, most recent episode (or current) mixed, unspecified 296.60 [facility] [id number] [place] [address] 92776- 7464 Jun, Diabetes 250.00 [facility] [id number], [place] [address]- 1214 Jun, [facility] [id number] [place] [address] 54317- 6358 Jun, [facility] [address], [place] [address]- 5399 May, [facility] [address], [place] [address]- 9756 May, [facility] [address], [place] [address]- 5213 May, [facility] [address], [place] [address]- 7982 May, [facility] [id number] 6534 May, [facility] [address], [place] [address]- 3438 May, [facility] [place] [facility] [address] [id number] [place] [address]- 2643 Apr, 2014 [facility] [place] [facility] [address] [id number] [place] [address]- 2646 Apr, 2014 [facility] [place] [facility] [address] [id number] [place] [address]- 2546 Apr, 2014 [facility] [place] [facility] [address] [id number] [place] [address]- 9336 Apr, 2014 [facility] [place] [facility] [address] [id number] [place] [address]- 1053 Apr, 2014 [facility] [place] [facility] [address] [id number] [place] [address]- 4586 Apr, 2014 [facility] [place] [facility] [address] [id number] [place] [address]- 3245 Apr, [facility] [place] [facility] [address] [id number] [place] [address]- 1507 Apr, [facility] [place] [facility] [address] [id number] [place] [address]- 3129 Mar, [facility] [place] [facility] [address] [id number] [place] [address]- 8091 Mar, [facility] [place] [facility] [address] [id number] [place] [address]- 0409 Mar, [facility] [place] [facility] [address] [id number] [place] [address]- 1149 Mar, [facility] [place] [facility] [address] [id number] [place] [address] 254 Mar, [facility] [place] [facility] [address] [id number] [place] [address]- 1059 Mar, [facility] [place] [facility] [address] [id number] [place] [address]- 2668 Mar, [facility] [place] [facility] [address] [id number] [place] [address]- 6492 Mar, [facility] [place] [facility] [address] [id number] [place] [address]- 2517 Feb, [facility] [place] [facility] [address] [id number] [place] [address]- 1436 Feb, [facility] [place] [facility] [address] [id number] [place] [address]- 8214 Feb, [facility] [place] [facility] [address] [id number] [place] [address]- 2070 Feb, [facility] [place] [facility] [address] [id number] [place] [address]- 2135 Feb, [facility] [place] [facility] [address] [id number] [place] [address]- 8602 Feb, [facility] [place] [facility] [address] [id number] [place] [address]- 5767 Feb, [facility] [place] [facility] [address] [id number] [place] [address]- 4585 Feb, [facility] [place] [facility] [address] [id number] [place] [address]- 9842 Feb, [facility] [place] [facility] [address] [id number] [place] [address]- 8006 Feb, [facility] [place] [facility] [address] [id number] [place] [address]- 0384 Jan, [facility] [place] [facility] [address] [id number], [place] [address]- 9494 Jan, [facility] [place] [facility] [address] [id number] [place] [address]- 7267 Jan, [facility] [place] [facility] [address] [id number] [place] [address]- 9445 Jan, [facility] [place] [facility] [address] [id number] [place] [address]- 3750 Jan, [facility] [place] [facility] [address] [id number] [place] [address]- 2585 Jan, [facility] [place] [facility] [address] [id number] [place] [address]- 0833 Jan, [facility] [place] [facility] [address] [id number] [place] [address]- 8848 Jan, [facility] [place] [facility] [address] [id number] [place] [address]- 8620 Jan, [facility] [place] [facility] [address] [id number] [place] [address]- 7347 Jan, [facility] [place] [facility] [address] [id number] [place] [address]- 7434 Jan, [facility] [place] [facility] [address] [id number] [place] [address]- 0604 Jan, [facility] [place] [facility] [address] [id number] [place] [address]- 7519 Jan, [facility] [place] [facility] [address] [id number] [place] [address]- 6388 Jan, [facility] [place] [facility] [address] [id number] [place] [address]- 5319 Jan, [facility] [place] [facility] [address] [id number] [place] [address]- 1566 Dec, [facility] [place] [facility] [address] [id number] [place] [address]- 0243 Dec, [facility] [place] [facility] [address] [id number] [place] [address]- 5554 Dec, [facility] [place] [facility] [address] [id number] [place] [address]- 1567 Dec, [facility] [place] [facility] [address] [id number] [place] 0353 Dec, [facility] [place] [facility] [address] [id number] [place] [address]- 6782 09 Dec, 2013 [facility] [place] [facility] [address] [id number] [place] [address]- 4099 07 Dec, 2013 [facility] [place] [facility] [address] [id number] [place] [address]- 5607 07 Dec, 2013 [facility] [place] [facility] [address] [id number] [place] [address]- 9198 25 Sep, 2013 [facility] [place] [facility] [address] [id number] [place] [address]- 8814 25 Sep, 2013 [facility] [place] [facility] [address] [id number] [place] [address]- 7266 10 Sep, 2013 [facility] [place] [facility] [address] [id number] [place] [address]- 7342 10 Nov, 2013 [facility] [place] [facility] [address] [id number] [place] [address]- 0254 08 Sep, 2013 [facility] [place] [facility] [address] [id number], [place] [address]- 0201 08 Sep, 2013 [facility] [place] [facility] [address] [id number] [place] [address]- 9272 08 Sep, 2013 [facility] [place] [facility] [address] [id number] [place] [address]- 1881 08 Sep, 2013 [facility] [place] [facility] [address] [id number], [place] [address]- 1241 08 Sep, 2013 [facility] [place] [facility] [address] [id number], [place] [address]- 3869 08 Sep, 2013 [facility] [place] [facility] [address] [id number], [place] [address]- 5232 04 Sep, 2013 [facility] [place] [facility] [address] [id number], [place] [address]- 2943 04 Sep, 2013 [facility] [place] [facility] [address] [id number], [place] [address]- 9261 03 Sep, 2013 [facility] [place] [facility] [address] [id number] [place] [address]- 7560 Nov, [facility] [place] [facility] [address] [id number] [place] [address]- 0915 Nov, [facility] [place] [facility] [address] [id number] [place] [address]- 8888 Oct, [facility] [place] [facility] [address] [id number] [place] [address]- 6405 Oct, [facility] [place] [facility] [address] [id number] [place] [address]- 2644 Oct, [facility] [place] [facility] [address] [id number] [place] [address]- 8167 Oct, [facility] [place] [facility] [address] [id number] [place] [address]- 5489 Oct, [facility] [place] [facility] [address] [id number] [place] [address]- 7838 Oct, [facility] [place] [facility] [address] [id number] [place] [address]- 0372 Oct, [facility] [place] [facility] [address] [id number] [place] [address]- 8620 Oct, [facility] [place] [facility] [address] [id number] [place] [address]- 8299 Oct, [facility] [place] [facility] [address] [id number] [place] [address]- 1733 Oct, [facility] [place] [facility] [address] [id number] [place] [address]- 7329 Oct, [facility] [place] [facility] [address] [id number] [place] [address]- 7627 Oct, [facility] [place] [facility] [address] [id number] [place] [address]- 9647 Oct, [facility] [place] [facility] [address] [id number] [place] [address]- 7218 Oct, [facility] [place] [facility] [address] [id number] [place] [address]- 4089 Sep, 2013 [facility] [place] [facility] [address] [id number] [place] [address]- 9680 Sep, [facility] [place] [facility] [address] [id number] [place] [address]- 2173 Sep, [facility] [place] [facility] [address] [id number] [place] [address]- 9566 Sep, [facility] [place] [facility] [address] [id number] [place] [address]- 5288 Sep, [facility] [place] [facility] [address] [id number] [place] [address]- 4556 Sep, [facility] [place] [facility] [address] [id number] [place] [address]- 5683 Sep, [facility] [place] [facility] [address] [id number] [place] [address]- 2705 Sep, [facility] [place] [facility] [address] [id number] [place] [address]- 1367 Aug, [facility] [place] [facility] [address] [id number] [place] [address]- 2150 Aug, [facility] [place] [facility] [address] [id number] [place] [address]- 4631 Aug, [facility] [place] [facility] [address] [id number] [place] [address]- 2161 Aug, [facility] [place] [facility] [address] [id number] [place] [address]- 7877 Aug, [facility] [place] [facility] [address] [id number] [place] [address]- 5896 Aug, [facility] [place] [facility] [address] [id number] [place] [address]- 1908 Aug, [facility] [place] [facility] [address] [id number] [place] [address]- 5793 Aug, [facility] [address] [id number] [place] [address]- 2076 July, [facility] [place] [facility] [address] [id number] [place] [address]- 3883 July, [facility] [place] [facility] [address] [id number] [place] [address]- 0559 July, [facility] [place] [facility] [address] [id number] [place] [address]- 2708 July, [facility] [place] [facility] [address] [id number] [place] [address]- 1879 July, [facility] [place] [facility] [address] [id number] [place] [address]- 7467 July, [facility] [place] [facility] [address] [id number] [place] [address]- 5303 July, [facility] [place] [facility] [address] [id number] [place] [address]- 5863 July, [facility] [place] [facility] [address] [id number] [place] [address]- 5802 Jun, [facility] [place] [facility] [address] [id number] [place] [address]- 4686 Jun, [facility] [place] [facility] [address] [id number] [place] [address]- 8977 Jun, [facility] [place] [facility] [address] [id number] [place] [address]- 8200 Jun, [facility] [place] [facility] [address] [id number] [place] [address]- 3718 Jun, [facility] [place] [facility] [address] [id number] [place] [address]- 1475 Jun, [facility] [place] [facility] [address] [id number] [place] [address]- 6968 Jun, [facility] [place] [facility] [address] [id number] [place] [address]- 1179 15 Jun, 2013 [facility] [address] [id number] [place] [address]- 8991 Jun, [facility] [place] [facility] [address] [id number] [place] [address]- 3416 Jun, [facility] [address] [id number] [place] [address]- 1522 Jun, [facility] [place] [facility] [address] [id number] [place] [address]- 7285 Jun, [facility] [place] [facility] [address] [id number] [place] [address]- 2306 May, [facility] [place] [facility] [address] [id number] [place] [address]- 2107 May, [facility] [place] [facility] [address] [id number] [place] [address]- 8202 May, [facility] [address] [id number] [place] [address]- 1193 May, [facility] [place] [facility] [address] [id number] [place] [address]- 0752 May, [facility] [address] [id number] [place] [address]- 9839 May, [facility] [place] [facility] [address] [id number] [place] [address]- 5840 May, [facility] [place] [facility] [address] [id number] [place] [address]- 1848 May, [facility] [place] [facility] [address] [id number] [place] [address]- 5318 May, [facility] [place] [facility] [address] [id number] [place] [address]- 8994 May, [facility] [place] [facility] [address] [id number] [place] 5622 May, [facility] [place] [facility] [address] [id number] [place] [address]- 6852 May, [facility] [place] [facility] [address] [id number] [place] [address]- 8147 May, [facility] [place] [facility] [address] [id number] [place] [address]- 9946 May, [facility] [place] [facility] [address] [id number] [place] [address]- 5492 Apr, [facility] [place] [facility] [address] [id number] [place] [address]- 6423 Apr, [facility] [place] [facility] [address] [id number] [place] [address]- 6682 Apr, [facility] [place] [facility] [address] [id number] [place] [address]- 7377 Apr, [facility] [place] [facility] [address] [id number] [place] [address]- 7183 Apr, [facility] [place] [facility] [address] [id number] [place] [address]- 7304 Apr, [facility] [place] [facility] [address] [id number] [place] [address]- 9739 Mar, [facility] [place] [facility] [address] [id number] [place] [address]- 2693 Mar, [facility] [place] [facility] [address] [id number] [place] [address]- 3265 Mar, [facility] [place] [facility] [address] [id number] [place] [address]- 8421 Mar, [facility] [place] [facility] [address] [id number] [place] [address]- 7286 Mar, [facility] [place] [facility] [address] [id number] [place] [address]- 5470 Mar, [facility] [place] [facility] [address] [id number] [place] [address]- 7243 Mar, [facility] [address] [id number] [place] [address]- 6758 Mar, [facility] [address] [id number] [place] [address]- 8697 Mar, [facility] [address] [id number] [place] [address]- 9625 Mar, [facility] [address] [id number] [place] [address]- 3825 Mar, [facility] [address] [id number] [place] [address]- 0630 Mar, [facility] [address] [id number] [place] [address]- 1628 Mar, [facility] [address] [id number] [place] [address]- 3420 Mar, [facility] [address] [id number] [place] [address] Feb, [facility] [address] [id number] [place] [address] Feb, [facility] [address] [id number] [place] [address] Feb, [facility] [address] [id number] [place] [address] Feb, [facility] [address] [id number] [place] [address] Feb, [facility] [place] [facility] [address] [id number] [place] [address] Feb, [facility] [address] [id number] [place] [address] Feb, [facility] [address] [id number] [place] [address] Feb, [facility] [address] [id number] [place] [address] Feb, 2012 [facility] [place] [facility] [address] [id number] [place] [address] Feb, 2012 [facility] [place] [facility] [address] [id number] [place] [address] Feb, 2012 [facility] [place] [facility] [address] [id number] [place] [address] Feb, 2012 [facility] [address] [id number] [place] [address] Feb, 2012 [facility] [place] [facility] [address] [id number] [place] [address] Feb, [facility] [place] [facility] [address] [facility] [id number] [place] [address] Feb, [facility] [place] [facility] [address] [id number], [place] [address] Feb, [facility] [place] [facility] [address] [id number], [place] [address] 24 Dec, 2012 [facility] [place] [facility] [address] [id number], [place] [address] 24 Dec, 2012 [facility] [place] [facility] [address] [facility] [id number], [place] [address] 2013 16 Dec, 2012 [facility] [place] [facility] [address] [id number], [place] [address] 16 Dec, 2012 [facility] [place] [facility] [address] [id number], [place] [address] 16 Dec, 2012 [facility] [place] [facility] [address] [id number], [place] [address] 16 Dec, 2012 [facility] [place] [facility] [address] [facility] [id number], [place] [address]- [address] 14 Dec, 2012 [facility] [place] [facility] [address] [id number], [place] [address] 14 Dec, 2012 [facility] [place] [facility] [address] [id number] [place] [address] 10 Dec, 2012 [facility] [place] [facility] [address] [id number] [place] [address] 10 Dec, 2012 [facility] [place] [facility] [address] [id number] [place] [address] 10 Dec, 2012 [facility] [place] [facility] [address] [id number] [place] [address] 10 Dec, 2012 [facility] [place] [facility] [address] [id number] [place] [address]46 03 Dec, 2012 [facility] [place] [facility] [address] [id number] [place] [address] 25 Nov, 2012 [facility] [place] [facility] [address] [id number] [place] [address] 20 Nov, 2012 [facility] [place] [facility] [address] [id number] [place] [address] 18 Nov, 2012 [facility] [place] [facility] [address] [id number] [place] [address] 1146 16 Nov, 2012 [facility] [place] [facility] [address] [facility] [id number] [place] [address] 12 Nov, 2012 [facility] [place] [facility] [address] [id number] [place] [address]- [address] 11 Nov, 2012 [facility] [place] [facility] [address] [id number] [place] [address]- [address] 05 Nov, 2012 [facility] [place] [facility] [address] [id number] [place] [address] 15 Oct, 2012 [facility] [place] [facility] [address] [id number] [place] [address] Oct, [facility] [place] [facility] [address] [facility] [id number] [place] [address] 24 Sep, 2012 [facility] [place] [facility] [address] [id number] [place] [address] 23 Sep, 2012 [facility] [place] [facility] [address] [id number] [place] [address] Sep, [facility] [place] [facility] [address] [id number] [place] [address] 17 Sep, 2012 [facility] [place] [facility] [address] [id number] [place] [address] 15 Sep, 2012 [facility] [place] [facility] [address] [id number] [place] [address] Sep, [facility] [place] [facility] [address] [id number] [place] [address] Sep, [facility] [place] [facility] [address] [id number] [place] [address] Aug, [facility] [place] [facility] [address] [id number] [place] [address] Aug, [facility] [place] [facility] [address] [id number] [place] [address]- [address]681 16 Aug, 2012 [facility] [place] [facility] [address] [id number] [place] [address]- [address] Aug, [facility] [place] [facility] [address] [id number] [place] [address] Aug, [facility] [place] [facility] [address] [id number] [place] [address] Aug, [facility] [place] [facility] [address] [id number] [place] [address]- [address] Aug, [facility] [place] [facility] [address] [id number] [place] [address]- [address] Aug, [facility] [place] [facility] [address] [id number] [place] [address] July, [facility] [place] [facility] [address] [id number] [place] [address] July, [facility] [address] [id number] [place] [address] July, [facility] [address] [id number] [place] [id number] July, [facility] [address] [id number] [place] [address]- [address] July, [facility] [address] [id number] [place] [address] 280[address] Jun, [facility] [address] [id number] [place] [address]- [address] May, [facility] [address] [id number] [place] [address]- 39[address] May, [facility] [address] [id number] [place] [address]- [address] May, [facility] [address] [id number] [place] [address]- [address] Apr, [facility] [address] [id number] [place] [address]- [address] Apr, [facility] [facility] [address] [id number] [place] [address] Apr, [facility] [address] [id number] [place] [address] Mar, [facility] [place] [facility] [address] [id number] [place] [address] Mar, [facility] [place] [facility] [address] [id number] [place] [address] Mar, [facility] [place] [facility] [address] [id number] [place] [address] Mar, [facility] [place] [facility] [address] [id number] [place] [address] Mar, [facility] [address] [id number] [place] [address] Mar, [facility] [address] [id number] [place] [address] Mar, [facility] [place] [facility] [address] [id number] [place] [address] Feb, [facility] [address] [id number] [place] [address] 14[address] Feb, [facility] [place] [facility] [address] [id number] [place] [address] 4[address] Feb, [facility] [address] [id number] [place] [address] Feb, [facility] [place] [facility] [address] [id number] [place] [address] 7627 Feb, [facility] [address] [id number] [place] [address] Feb, [facility] [place] [facility] [address] [id number] [place] [address] 555[address] Feb, [facility] [place] [facility] [address] [id number] [place] [address] Feb, [facility] [place] [facility] [address] [facility] [id number] [place] [address] Jan, [facility] [place] [facility] [address] [id number] [place] [address] 09[address] Jan, [facility] [place] [facility] [address] [id number] [place] [address]- 1144 Jan, [facility] [place] [facility] [address] [id number] [place] [address] 38[address] Jan, [facility] [place] [facility] [address] [id number] [place] [address] 288[address] Jan, [facility] [place] [facility] [address] [id number] [place] [address] Jan, [facility] [place] [facility] [address] [id number] [place] [address] 9963 Jan, [facility] [place] [facility] [address] [id number] [place] [address] 9[address] Jan, [facility] [place] [facility] [address] [id number] [place] [address]- 1045 Jan, [facility] [place] [facility] [address] [id number] [place] [address]- [address] Jan, [facility] [place] [facility] [address] [id number] [place] [address]- 7339 Jan, [facility] [place] [facility] [address] [id number] [place] [address]- [address] Jan, [facility] [place] [facility] [address] [id number] [place] [address]- 9985 Jan, [facility] [place] [facility] [address] [id number] [place] [address]- [address] Jan, [facility] [place] [facility] [address] [id number] [place] [address]- 4779 Jan, [facility] [place] [facility] [address] [id number] [place] [address]- 6[address] Jan, [facility] [place] [facility] [address] [facility] [id number] [place] [address]28 Dec, [facility] [place] [facility] [address] [id number], [place] [address] Dec, [facility] [place] [facility] [address] [id number] [place] [address]- 7211 Dec, [facility] [place] [facility] [address] [id number] [place] [address]- 2542 Dec, [facility] [place] [facility] [address] [id number] [place] [address]- 7888 Dec, [facility] [place] [facility] [address] [id number] [place] [address] 7046 Dec, [facility] [place] [facility] [address] [id number] [place] [address] 6419 Dec, [facility] [place] [facility] [address] [id number] [place] [address] Dec, [facility] [place] [facility] [address] [id number] [place] [address] 9[address] Dec, [facility] [place] [facility] [address] [id number] [place] [address]- [address] 05 Dec, 2011 [facility] [place] [facility] [address] [id number] [place] [address]368 18 Nov, 2011 [facility] [place] [facility] [address] [id number] [place] [address] 3704 13 Nov, 2011 [facility] [place] [facility] [address] [id number] [place] [address]- 1738 24 Oct, 2011 [facility] [place] [facility] [address] [id number] [place] [address]- 6818 Oct, [facility] [place] [facility] [address] [id number] [place] [address]181 Oct, [facility] [place] [facility] [address] [id number] [place] [address]- 3161 Oct, [facility] [place] [facility] [address] [id number] [place] [address]174 Oct, [facility] [place] [facility] [address] [id number] [place] [address]- 4613 Oct, [facility] [place] [facility] [address] [id number] [place] [address]- 3293 Oct, [facility] [place] [facility] [address] [id number] [place] [address]603 Sep, [facility] [place] [facility] [address] [id number] [place] [address]- 6784 Aug, [facility] [place] [facility] [address] [id number] [place] [address]- 9941 Aug, [facility] [address] [id number] [place] [address] 9298 Aug, [facility] [place] [facility] [address] [id number] [place] [address] 2546 Aug, [facility] [address] [id number] [place] [address] 0704 Aug, [facility] [address] [id number] [place] [address]- 3467 July, [facility] [address] [id number] [place] [address] 97[address] July, [facility] [address] [id number] [place] [address] 4176 July, [facility] [address] [id number] [place] [address] 4[address] Jun, [facility] [address] [id number] [place] [address]- [address] Jun, [facility] [address] [id number] [place] [address]- 2135 Jun, [facility] [address] [id number] [place] [address]- 0112 Jun, [facility] [address] [id number] [place] [address]- 7392 May, [facility] [address] [id number] [place] [address]- 4516 May, [facility] [place] [facility] [address] [id number] [place] [address]- 8532 29 May, 2011 [facility] [place] [facility] [address] [id number] [place] [address]- 4713 May, [facility] [place] [facility] [address] [id number] [place] [address]- 2063 May, [facility] [place] [facility] [address] [id number] [place] [address]- 1738 22 May, 2011 [facility] [place] [facility] [address] [id number] [place] [address]- 9225 May, [facility] [place] [facility] [address] [id number] [place] [address]- 2691 19 May, 2011 [facility] [place] [facility] [address] [id number] [place] [address]- 8116 08 May, 2011 [facility] [place] [facility] [address] [id number] [place] [address]- 9582 05 May, 2011 [facility] [place] [facility] [address] [id number] [place] [address]- 9276 May, [facility] [place] [facility] [address] [id number] [place] [address]- 1192 May, [facility] [place] [facility] [address] [id number] [place] [address]- 6397 Mar, [facility] [place] [facility] [address] [id number] [place] [address]- 8001 Mar, [facility] [place] [facility] [address] [id number] [place] [address]- 0726 28 Feb, 2011 [facility] [place] [facility] [address] [id number] [place] [address]- 7097 Feb, [facility] [place] [facility] [address] [id number] [place] [address]- 8928 20 Feb, 2011 [facility] [place] [facility] [address] [id number] [place] [address]- 2174 15 Feb, 2011 [facility] [place] [facility] [address] [id number] [place] [address]- 0834 13 Feb, 2011 [facility] [place] [facility] [address] [id number] [place] [address] 13 Feb, 2011 [facility] [place] [facility] [address] [id number], [place] [address]- [address] 13 Feb, 2011 [facility] [place] [facility] [address] [id number] [place] [address]- 8951 Jan, [facility] [place] [facility] [address] [id number] [place] [address]- [address] Jan, [facility] [place] [facility] [address] [id number] [place] [address]- 4895 Jan, [facility] [place] [facility] [address] [id number] [place] [address]- 4454 17 Jan, 2011 [facility] [place] [facility] [id number] [place] [address], [place] [address]- [address]9 Jan, [facility] [place] [facility] [address] [id number] [place] [address]- 8266 Jan, [facility] [place] [facility] [address] [facility] [id number] [place] [address]- 2591 Dec, [facility] [place] [facility] [address] [id number] [place] [address]- 1195 Dec, [facility] [place] [facility] [address] [facility] [id number] [place] [address]- 9435 Dec, [facility] [place] [facility] [address] [facility] [id number] [place] [address]- 7563 July, [facility] [place] [facility] [address] [id number], [place] [address]- 9060 July, [facility] [place] [facility] [address] [id number], [place] [address]- 7[address] 08 Feb, 2010 [facility] [place] [facility] [address] [id number] [place] [address]- 1913 18 Jan, 2010 [facility] [place] [facility] [address] [facility] [id number] [place] [address]- 7962 Dec, [facility] [place] [facility] [address] [facility] [id number], [place] [address]- 8681 Dec, [facility] [place] [facility] [address] [id number] [place] [address]- 9584 15 Sep, 2009 [facility] [place] [facility] [address] [id number] [place] [address] Aug, [facility] [place] [facility] [address] [id number] [place] [address]- 9725 Jun, [facility] [place] [facility] [address] [id number] [place] [address]- 3100 Jun, [facility] [place] [facility] [address] [id number] [place] [address]- 4788 Jan, [facility] [place] [facility] [address] [id number] [place] [address]- 8526 Jan, [facility] [place] [facility] [address] [facility] [id number] [place] [address]- 9696 Jan, [facility] [place] [facility] [address] [id number] [place] [address]- 2332 Jan, [facility] [place] [facility] [address] [id number] [place] [address]- 5624 Dec, [facility] [place] [facility] [address] [id number] [place] [address]- 4100 Dec, [facility] [place] [facility] [address] [facility] [id number], [place] [address]- 7876 Dec, [facility] [place] [facility] [address] [id number], [place] [address]- 6025 Nov, [facility] [place] [facility] [address] [id number], [place] [address]- 5205 July, [facility] [place] [facility] [address] [id number] [place] [address]- 7760 May, [facility] [place] [facility] [address] [id number], [place] [address]- 0357 Apr, [facility] [place] [facility] [address] [id number], [place] [address]- 4988 Feb, [facility] [address] [facility] [id number] [place] [address]- 3[address] Dec, IMMUNIZATIONS No Known Immunizations SOCIAL HISTORY [...]
--- OUTSIDE RECORDS SUMMARY | 2018-06-14 14:18 | XMS REPORT ---
Author Author ARIAN US Organization [facility] Address [address] [place] [address] Care Team Providers Care Ammonia Solution Preparer Name Role Phone ARIAN US Unavailable PROBLEMS Type Condition ICD9-CM Code [id number] Code Onset Dates Condition Status SNOMED Code Problem Type 2 diabetes mellitus with complication E11.8 Active 732305268 Problem Acute bilateral low back pain with right-sided sciatica M54.41 Active 816718004 Problem Hyperlipidemia, unspecified E78.5 Active 99963402 Problem Hypertriglyceridemia E78.1 Active 948737223 Problem Obesity, unspecified 278.00 Active 923909024 Problem Other chronic pain G89.29 Active 38890186 Problem Eye exam normal Z01.00 Active 080551404 Problem Post laminectomy syndrome M96.1 Active 69984630 Problem 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 Active 840547081 Problem New daily persistent headache G44.52 Active 950727631 Problem Lumbago with sciatica, left side M54.42 Active 533791888 Problem Type 2 diabetes mellitus with hyperglycemia E11.65 Active 28102734 Problem Extreme poverty Z59.5 Active 98591988 Problem 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 Active 69575890 Problem Hyperlipidemia 272.4 Active 29412135 Problem Bipolar disorder, in partial remission, most recent episode manic F31.73 Active 27786405 Problem Irritable bowel syndrome with diarrhea K58.0 Active 151943425 Problem Lumbar radiculopathy M54.16 Active 732524278 Problem Non compliance with medical treatment Z91.19 Active 5096846 Problem Bipolar 1 disorder F31.9 Active 078926778 Problem Diabetes E11.9 Active 663991994 Problem halfway current 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 Z79.891 Active 223940510 ALLERGIES No Information ENCOUNTERS Encounter Location Date Diagnosis [facility] [address] [facility] [id number] [address] Mar, [facility] [address] [address] Mar, [facility] [id number] [place] [address] 00002- 8531 Feb, [facility] [id number] [place] [address] 42195- 8185 Jan, [facility] [id number] [place] [address] 42184- 3762 Jan, Bipolar 1 disorder F31.9 ; 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 and Extreme poverty Z59.5 [facility] [id number] [place] [address] 00038- 6358 Dec, Bipolar 1 disorder F31.9 ; 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 and Extreme poverty Z59.5 [facility] [id number] [place] [address] 20344- 0926 24 Nov, 2017 [facility] [id number] [place] [address] 18595- 5041 Nov, Hypertriglyceridemia E78.1 [facility] [id number] [place] [address] 35252- 2313 20 Nov, 2017 Bipolar 1 disorder F31.9 ; 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 and Extreme poverty Z59.5 [facility] [place] [address] [place] [address] 62225- 0414 18 Nov, 2017 Type 2 diabetes mellitus with complication E11.8 [facility] [id number] [place] [address] 46787- 9023 18 Nov, 2017 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 and Bipolar disorder, in partial remission, most recent episode manic F31.73 [facility] [address] [place] [address] 39623- 7503 12 Nov, 2017 Type 2 diabetes mellitus with complication E11.8 [facility] [id number] [place] [address] 98809- 0956 Nov, Bipolar 1 disorder F31.9 ; 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 and Extreme poverty Z59.5 [facility] [id number] [place] [address] 35897- 4017 Nov, Type 2 diabetes mellitus with complication E11.8 ; Pain of left upper arm M79.622 ; Pain in right upper arm M79.621 ; Hyperglycemia R73.9 ; Lumbago with sciatica, left side M54.42 and Other chronic pain G89.29 [facility] [id number] [place] [address] 90065- 9722 Oct, Bipolar 1 disorder F31.9 ; 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 and Extreme poverty Z59.5 [place] [id number] [place] [address] 47850- 8565 Oct, Type 2 diabetes mellitus with hyperglycemia E11.65 ; halfway current use of insulin Z79.4 and Other acute gastritis without hemorrhage K29.00 [facility] [id number] [place] [address] 78487- 6697 Oct, Bipolar 1 disorder F31.9 ; 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 and Extreme poverty Z59.5 [facility] [id number] [place] [address] 08639- 1358 Sep, Diarrhea, unspecified R19.7 and Vomiting, unspecified R11.10 [facility] [id number] [place] [address] 82156- 8669 Aug, Type 2 diabetes mellitus with complication E11.8 [facility] [id number] [place] [address] 78194- 8447 Aug, [address] 74557- 8458 Aug, Bipolar 1 disorder F31.9 ; 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 and Extreme poverty Z59.5 [place] [id number] [place] [address] 69593- 2099 Aug, 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 and Bipolar disorder, in partial remission, most recent episode manic F31.73 [facility] [address] [place] [address] 48302- 4690 14 Aug, 2017 Bipolar 1 disorder F31.9 [facility] [address] [place] [address] 18003- 7531 Aug, [facility] [id number] [place] [address] 95009- 6506 Aug, [facility] [id number] [place] [address] 63021- 6899 Aug, Bipolar 1 disorder F31.9 ; 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 and Extreme poverty Z59.5 [facility] [id number] [place] [address] 23570- 3858 July, Type 2 diabetes mellitus with complication E11.8 [facility] [id number] [place] [address] 08496- 4525 July, Bipolar 1 disorder F31.9 ; 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 and Extreme poverty Z59.5 [facility] [id number] [place] [address] 02778- 0318 Jun, Bipolar 1 disorder F31.9 ; 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 and Extreme poverty Z59.5 [facility] [address] [place] [address] 62075- 4189 Jun, Bipolar 1 disorder F31.9 ; 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 and Extreme poverty Z59.5 [facility] [address] [place] [address] 80329- 8664 Jun, Bipolar 1 disorder F31.9 ; 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 and Extreme poverty Z59.5 [facility] [address] [place] [address] 90048- 1582 May, Urinary tract infection without hematuria, site unspecified N39.0 [facility] [address] [place] [address] 49608- 0074 May, Bipolar 1 disorder F31.9 ; 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 and Extreme poverty Z59.5 [facility] [id number] [place] [address] 61372- 0900 28 Apr, 2017 Diabetes E11.9 and Breast cancer screening Z12.31 [facility] [id number] [place] [address] 51112- 5759 20 Apr, 2017 Bipolar 1 disorder F31.9 and 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 [facility] [id number] [place] [address] 10627- 2436 Mar, Bipolar 1 disorder F31.9 ; 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 and Extreme poverty Z59.5 [facility] [id number] [place] [address] 14020- 6517 Mar, New daily persistent headache G44.52 ; Leg pain 729.5 and History of carpal tunnel release Z98.890 [facility] [id number] [place] [address] 31838- 4288 Mar, Hyperlipidemia, unspecified E78.5 [place] [id number] [place] [address] 66554- 4611 Mar, Bipolar 1 disorder F31.9 ; 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 and Extreme poverty Z59.5 [facility] [address] [place] [address] 48945- 0217 Feb, Bipolar 1 disorder F31.9 ; 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 and Extreme poverty Z59.5 [facility] [address] [place] [address] 46751- 0324 Feb, Diabetes E11.9 [place] [id number] [place] [address] 54887- 6675 Feb, Viral syndrome B34.9 [place] [id number] [place] [address] 63139- 5769 Jan, Other viral agents as the cause of diseases classified elsewhere B97.89 and Acute upper respiratory infection, unspecified J06.9 [facility] [address] [place] [address] 23667- 4506 Jan, Bipolar 1 disorder F31.9 and 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 [facility] [id number] [place] [address] 15394- 8040 Jan, Bipolar 1 disorder F31.9 ; 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 and Extreme poverty Z59.5 [facility] [id number] [place] [address] 16897- 2016 Dec, Diabetes E11.9 [facility] [address] 615191- 4607 Dec, Diabetes E11.9 and Encounter for immunization Z23 [facility] [id number] [place] [address] 25025- 0834 Dec, Bipolar 1 disorder F31.9 ; 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 and Extreme poverty Z59.5 [facility] [id number] [place] [address] 73440- 5263 Dec, Back pain M54.9 [facility] [id number] [place] [address] 55588- 2893 Nov, [facility] [id number] [place] [address] 86755- 3197 Nov, Bipolar 1 disorder F31.9 ; 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 and Extreme poverty Z59.5 [facility] [id number] [place] [address] 74651- 4179 Nov, Bipolar 1 disorder F31.9 ; 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 and Extreme poverty Z59.5 [facility] [id number] [place] [address] 96959- 4141 Oct, 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 and Bipolar 1 disorder F31.9 [facility] [id number] [place] [address] 53505- 0514 Oct, Bipolar 1 disorder F31.9 ; 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 and Extreme poverty Z59.5 [facility] [id number] [place] [address] 09310- 1254 Oct, Back pain M54.9 [facility] [id number] [place] [address] 04551- 2320 Oct, 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 and Type 2 diabetes mellitus with complication E11.8 [facility] [id number] [place] [address] 26154- 7554 Sep, Bipolar 1 disorder F31.9 ; 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 and Extreme poverty Z59.5 [facility] [id number] [place] [address] 45495- 5793 Sep, 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 and Bipolar 1 disorder F31.9 [facility] [id number] [place] [address] 10681- 3136 Sep, Bipolar 1 disorder F31.9 ; 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 and Extreme poverty Z59.5 [facility] [id number] [place] [address] 21884- 4550 Aug, Diabetes E11.9 ; Hyperlipidemia, unspecified E78.5 and Lumbar radiculopathy M54.16 [place] [address] [place] [address] 00141- 1318 Aug, Bipolar 1 disorder F31.9 ; 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 and Extreme poverty Z59.5 [facility] [place] [address] [place] [address] 97244- 3279 Aug, [facility] [id number] [place] [address] 67988- 2648 Aug, [facility] [address] [place] [address] 68088- 3315 Aug, [facility] [id number] [place] [address] 96756- 3350 July, [facility] [address] [place] [address] 30759- 0221 July, Acute bilateral low back pain with right-sided sciatica M54.41 [facility] [id number] [place] [address] 43535- 6406 July, Bipolar 1 disorder F31.9 ; 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 and Extreme poverty Z59.5 [facility] [id number] [place] [address] 56819- 8558 July, Back pain M54.9 and Diabetes E11.9 [facility] [id number] [place] [address] 39064- 8421 Jun, Bipolar 1 disorder F31.9 ; 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 and Extreme poverty Z59.5 [facility] [id number] [place] [address] 77435- 4264 Jun, Bipolar 1 disorder F31.9 ; 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 and Extreme poverty Z59.5 [facility] [id number] [place] [address] 87075- 0503 May, Visit for pelvic exam Z01.419 ; Acute vaginitis N76.0 and Diabetes E11.9 [facility] [address] [place] [address] 71577- 4800 May, Bipolar 1 disorder F31.9 ; 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 and Extreme poverty Z59.5 [facility] [address] [place] [address] 51728- 1436 May, [facility] [id number] [place] [address] 80591- 6610 May, [facility] [id number] [place] [address] 46644- 7935 May, Bipolar 1 disorder F31.9 ; 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 and Extreme poverty Z59.5 [facility] [id number] [place] [address] 37404- 6261 May, Hyperlipidemia, unspecified E78.5 [place] [address] 91443- 8258 13 Apr, 2016 Breast cancer screening Z12.39 [facility] [address] 91938- 0161 Mar, [facility] [address] 02039- 2890 Mar, Bipolar disorder, current episode mixed, unspecified F31.[address] 87563- 9778 Mar, Bipolar 1 disorder F31.9 ; 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 and Extreme poverty Z59.5 [place] [address] 38904- 0991 Feb, Acute nasopharyngitis J00 [facility] [address] 38734- 0737 27 Feb, 2016 Dental examination Z01.[address] 23384- 4476 Feb, Dental cavities K02.9 and Chronic periodontitis, unspecified K05.30 [facility] [address] 91514- 5692 Feb, Low back pain M54.5 and Extreme poverty Z59.5 [place] [address] 84685- 1848 Feb, [facility] [address] 76471- 5018 Feb, Routine gynecological examination V72.31 ; Breast cancer screening Z12.39 and Herpes simplex type 1 infection B00.9 [place] [address] 77629- 0681 Feb, Diabetes E11.9 [facility] [address] [place] [address] 00952- 7259 Feb, Encounter for dental examination and cleaning without abnormal findings Z01.20 [facility] [id number] [place] [address] 20947- 8620 Jan, Hyperlipidemia, unspecified E78.5 [facility] [id number] [place] [address] 09704- 5510 Jan, Bipolar 1 disorder F31.9 ; 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 and Extreme poverty Z59.5 [facility] [id number] [place] [address] 79805- 6456 18 Jan, 2016 Diabetes E11.9 [facility] [id number] [place] [address] 21044- 5429 17 Jan, 2016 Diabetes E11.9 [facility] [id number] [place] [address] 58878- 1937 14 Dec, 2015 Bipolar 1 disorder F31.9 ; 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 and Extreme poverty Z59.5 [facility] [id number] [place] [address] 87528- 1592 13 Dec, 2015 Bipolar disorder, current episode mixed, unspecified F31.60 and 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 [facility] [id number] [place] [address] 99837- 7590 16 Nov, 2015 Bipolar 1 disorder F31.9 ; 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 ; Extreme poverty Z59.5 and Non compliance with medical treatment Z91.19 [place] [address] [place] [address] 08161- 4856 Oct, [facility] [id number] [place] [address] 44566- 6234 Oct, Dental caries K02.9 [facility] [place] [address] [place] [address] 52430- 3140 Oct, Low back pain M54.5 and Other chronic pain G89.29 [facility] [address] [address]- 0610 Oct, Bipolar 1 disorder F31.9 ; 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 ; Extreme poverty Z59.5 and Non compliance with medical treatment Z91.19 [facility] [address] [address]- 3080 Oct, [facility] [id number] [place] [address] 15227- 2124 Oct, [facility] [id number] [place] [address] 54924- 5309 Oct, Dental examination Z01.20 [facility] [id number] [place] [address] 27526- 5530 Oct, Bipolar 1 disorder F31.9 ; 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 ; Extreme poverty Z59.5 and Non compliance with medical treatment Z91.19 [facility] [id number] [place] [address] 23395- 2037 Oct, [facility] [id number] [place] [address] 29511- 1782 Sep, Type 2 diabetes mellitus with complication E11.8 [facility] [id number] [place] [address] 25058- 5912 Sep, Bipolar disorder, current episode mixed, unspecified F31.60 [facility] [address] [place] [address] 04409- 8539 Sep, Bipolar disorder, current episode mixed, unspecified F31.60 [facility] [place] [address] [place] [address] 57883- 0380 Sep, Bipolar disorder, in partial remission, most recent episode manic F31.73 ; 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 ; Extreme poverty Z59.5 and Non compliance with medical treatment Z91.19 [facility] [address] [address]- 8388 Aug, Bipolar disorder, in partial remission, most recent episode manic F31.73 ; 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 ; Extreme poverty Z59.5 and Non compliance with medical treatment Z91.19 [facility] [address] [place] [address] 35798- 7668 Aug, Bipolar disorder, in partial remission, most recent episode manic F31.73 ; 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 ; Extreme poverty Z59.5 and Non compliance with medical treatment Z91.19 [facility] [id number] [place] [address] 35403- 0309 Aug, [facility] [id number] [place] [address] 83079- 6728 July, Bipolar disorder, in partial remission, most recent episode manic F31.73 ; 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 ; Extreme poverty Z59.5 and Non compliance with medical treatment Z91.19 [facility] [id number] [place] [address] 47202- 5472 July, Bipolar disorder, current episode mixed, unspecified F31.60 [facility] [id number] [place] [address] 18014- 1118 July, Bipolar disorder, in partial remission, most recent episode manic F31.73 ; 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 ; Extreme poverty Z59.5 and Non compliance with medical treatment Z91.19 [facility] [id number] [place] [address] 61223- 9902 July, halfway current 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 Z79.891 and Chronic pain G89.29 [facility] [place] [address] [place] [address] 53966- 2486 Jun, 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 and Bipolar 1 disorder F31.9 [facility] [address] [place] [address] 94889- 7170 Jun, [facility] [id number] [place] [address] 84965- 6082 Jun, [facility] [address] [address]- 2245 Jun, [facility] [id number] [place] [address] 34135- 5048 Jun, Bipolar disorder, in partial remission, most recent episode manic F31.73 ; 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 and Non compliance with medical treatment Z91.19 [facility] [id number] [place] [address] 23614- 1317 May, Bipolar disorder, in partial remission, most recent episode manic F31.73 ; 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 and Non compliance with medical treatment Z91.19 [facility] [id number] [place] [address] 59168- 1208 May, Bipolar disorder, in partial remission, most recent episode manic F31.73 [facility] [id number] [place] [address] 09921- 6196 May, Diabetes E11.9 and Chronic pain G89.29 [facility] [id number] [place] [address] 79171- 6169 May, [facility] [id number] [place] [address] 15608- 7205 May, Bipolar disorder, in partial remission, most recent episode manic F31.73 ; Non compliance with medical treatment Z91.19 and 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 [facility] [id number] [place] [address] 49275- 3840 May, Type 2 diabetes mellitus with complication E11.8 and Back pain M54.9 [facility] [address] [place] [address] 11340- 3580 May, Bipolar disorder, in partial remission, most recent episode manic F31.73 and 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 [facility] [address] [place] [address] 14854- 8698 Apr, [facility] [id number] [place] [address] 53876- 1244 18 Apr, 2015 [facility] [id number] [place] [address] 86915- 5017 Apr, [facility] [address] [place] [address]24[address]- 6373 09 Apr, 2015 Diabetes E11.9 ; Irritable bowel syndrome with diarrhea K58.0 and Lumbar radiculopathy M54.16 [facility] [id number] [place] [address] 78941- 0146 Apr, Breast screening Z12.[address] 65513- 1949 Apr, Bipolar disorder, in partial remission, most recent episode manic F31.73 ; Non compliance with medical treatment Z91.19 and Borderline intellectual functioning R41.[address] 65244- 1458 Mar, Edema, unspecified type R60.9 and Type 2 diabetes mellitus with complication E11.8 [place] [id number] [place] [address] 00362- 9682 Mar, Bipolar disorder, in partial remission, most recent episode manic F31.73 ; Non compliance with medical treatment Z91.19 ; 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 and Extreme poverty Z59.5 [facility] [id number] [place] [address] 46469- 4021 Mar, Bipolar disorder, current episode mixed, unspecified F31.60 ; 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 ; Extreme poverty Z59.5 and Generalized anxiety disorder F41.[address] 25811- 0457 Mar, Bipolar disorder, in partial remission, most recent episode manic F31.73 ; 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 and Extreme poverty Z59.[address] 34557- 2116 Feb, Bipolar disorder, in partial remission, most recent episode manic F31.73 ; 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 and Extreme poverty Z59.5 [facility] [id number] [place] [address] 93483- 9822 Feb, Bipolar disorder, in partial remission, most recent episode manic F31.73 ; 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 and Extreme poverty Z59.5 [place] [id number] [place] [address] 86169- 2710 Feb, [facility] [id number] [place] [address] 09824- 9679 Jan, Type 2 diabetes mellitus with complication E11.8 and Petechiae R23.3 [place] [id number] [place] [address] 40934- 1155 Jan, Type 2 diabetes mellitus with complication E11.8 ; Edema, unspecified R60.9 ; Petechiae R23.3 and Diabetes E11.9 [place] [id number] [place] [address] 56059- 0049 Jan, Bipolar disorder, in partial remission, most recent episode manic F31.73 ; 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 and Extreme poverty Z59.5 [place] [id number] [place] [address] 87394- 5129 Jan, Bipolar disorder, in partial remission, most recent episode manic F31.73 ; 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 and Extreme poverty Z59.5 [place] [id number] [place] [address] 11349- 8769 Dec, Bipolar disorder, in partial remission, most recent episode manic F31.73 [place] [id number] [place] [address] 12355- 2076 Dec, Edema, due to unspecified malnutrition type, unspecified edema R60.9 and Essential hypertension I10 [place] [id number] [place] [address] 13387- 6727 Dec, Bipolar disorder, in partial remission, most recent episode manic F31.73 [facility] [id number] [place] [address] 22656- 8014 Nov, Bipolar I disorder, most recent episode (or current) mixed, unspecified 296.60 [facility] [id number] [place] [address] 70257- 2011 24 Nov, 2014 Stress incontinence, female 625.6 ; Back pain 724.5 and Leg pain 729.5 [facility] [id number] [place] [address] 20738- 9448 18 Nov, 2014 Generalized anxiety disorder 300.02 and Bipolar II disorder 296.89 [facility] [id number] [place] [address] 96491- 8543 Nov, Bipolar I disorder, most recent episode (or current) mixed, unspecified 296.60 [facility] [id number] [place] [address] 33571- 6565 Oct, [facility] [id number] [place] [address] 63668- 8501 Oct, [facility] [id number] [place] [address] 86494- 2323 Oct, [facility] [id number] [place] [address] 09582- 8173 Oct, Bipolar I disorder, most recent episode (or current) mixed, unspecified 296.60 [facility] [id number] [place] [address] 39194- 5177 Sep, Diabetes 250.00 [facility] [id number] [place] [address] 21325- 2567 Sep, Bipolar I disorder, most recent episode (or current) mixed, unspecified 296.60 [facility] [id number] [place] [address] 28528- 1641 Sep, [facility] [id number] [place] [address] 13446- 5923 Sep, [facility] [id number] [address]- 7310 Sep, Bipolar I disorder, most recent episode (or current) mixed, unspecified 296.60 [facility] [address] [address]- 5958 Sep, Bipolar I disorder, most recent episode (or current) mixed, unspecified 296.60 [facility] [id number] [place] [address] 19314- 6201 Sep, [facility] [id number] [place] [address] 32258- 6224 Sep, Anxiety 300.00 ; Diabetes 250.00 and Hyperlipidemia 272.4 [facility] [id number] [address]- 2931 Aug, [facility] [id number] [place] [address] 76427- 3436 Aug, [facility] [address] [address]- 2790 Aug, [facility] [id number] [place] [address] 37178- 2196 Aug, Bipolar I disorder, most recent episode (or current) mixed, unspecified 296.60 [facility] [address] [address]- 1693 Aug, Generalized anxiety disorder 300.02 and Bipolar II disorder 296.89 [facility] [address] [address]- 5407 July, Bipolar I disorder, most recent episode (or current) mixed, unspecified 296.60 [facility] [address] [address]- 7726 July, Cough 786.2 [facility] [address] [address]- 5022 July, Bipolar I disorder, most recent episode (or current) mixed, unspecified 296.60 [facility] [address] [address]- 3570 30 Jun, 2014 Diabetes 250.00 [facility] [id number] [address]- 9582 14 Jun, 2014 [facility] [id number] [address]- 0734 Jun, [facility] [address] [facility] [id number] [address]- 4463 24 May, 2014 [facility] [address] [address]- 9681 May, [facility] [address] [address]- 2924 May, [facility] [address] [address]- 4682 May, [facility] [address] [address]- 6992 May, [facility] [address] [address]- 4126 May, [facility] [address] [address]- 3408 Apr, [facility] [address] [address]- 7617 Apr, 2014 [facility] [address] [address]- 5330 Apr, [facility] [address] [address]- 6801 Apr, [facility] [address] [address]- 5890 Apr, 2014 [facility] [address] [address]- 5804 Apr, [facility] [address] [id number] [place] [address]- 0660 Apr, [facility] [place] [facility] [address] [id number] [place] [address]- 3402 Apr, [facility] [place] [facility] [address] [id number] [place] [address]- 6584 Mar, [facility] [place] [facility] [address] [id number] [place] [address]- 5578 Mar, [facility] [place] [facility] [address] [id number] [place] [address]- 2508 Mar, [facility] [place] [facility] [address] [id number] [place] [address]- 7664 Mar, [facility] [place] [facility] [address] [id number] [place] [address]- 6714 Mar, [facility] [place] [facility] [address] [id number] [place] [address]- 7354 Mar, [facility] [place] [facility] [address] [id number] [place] [address]- 4020 Mar, [facility] [place] [facility] [address] [id number] [place] [address]- 2987 Mar, [facility] [place] [facility] [address] [id number] [place] [address]- 6131 Feb, [facility] [place] [facility] [address] [id number] [place] [address]- 3278 Feb, [facility] [place] [facility] [address] [id number] [place] [address]- 9680 Feb, [facility] [place] [facility] [address] [id number] [place] [address]- 4063 Feb, [facility] [place] [facility] [address] [id number] [place] [address]- 8871 Feb, [facility] [place] [facility] [address] [id number] [place] [address]- 8708 Feb, [facility] [place] [facility] [address] [id number] [place] [address]- 7986 Feb, [facility] [place] [facility] [address] [id number] [place] [address]- 9718 Feb, [facility] [place] [facility] [address] [id number] [place] [address]- 6772 Feb, [facility] [place] [facility] [address] [id number] [place] [address]- 0614 Feb, [facility] [place] [facility] [address] [id number] [place] [address]- 8759 Jan, [facility] [place] [facility] [address] [id number] [place] [address]- 3068 Jan, [facility] [place] [facility] [address] [id number] [place] [address]- 6468 Jan, [facility] [place] [facility] [address] [id number] [place] [address]- 5441 Jan, [facility] [place] [facility] [address] [id number] [place] [address]- 9164 Jan, [facility] [place] [facility] [address] [facility] [id number] [place] [address]- 5118 Jan, [facility] [place] [facility] [address] [id number] [place] [address]- 0659 Jan, [facility] [place] [facility] [address] [id number] [place] [address]- 4743 Jan, [facility] [place] [facility] [address] [id number] [place] [address]- 2358 Jan, [facility] [place] [facility] [address] [id number] [place] [address]- 7670 Jan, [facility] [place] [facility] [address] [id number] [place] [address]- 2716 Jan, [facility] [place] [facility] [address] [id number] [place] [address]- 1557 Jan, [facility] [place] [facility] [address] [id number] [place] 2622 Jan, [facility] [place] [facility] [address] [id number] [place] [address]- 8427 Jan, [facility] [place] [facility] [address] [id number] [place] [address]- 1530 Jan, [facility] [place] [facility] [address] [id number] [place] [address]- 6396 Dec, [facility] [place] [facility] [address] [id number] [place] [address]- 2709 Dec, [facility] [place] [facility] [address] [id number] [place] [address]- 5364 Dec, [facility] [place] [facility] [address] [id number] [place] [address]- 8166 Dec, [facility] [place] [facility] [address] [id number] [place] [address]- 0038 Dec, [facility] [place] [facility] [address] [id number] [place] [address]- 4239 Dec, [facility] [place] [facility] [address] [id number] [place] [address]- 2907 Dec, [facility] [place] [facility] [address] [id number] [place] [address]- 5001 Dec, [facility] [place] [facility] [address] [id number] [place] [address]- 1490 Nov, [facility] [place] [facility] [address] [id number] [place] [address]- 5296 Nov, [facility] [place] [facility] [address] [id number] [place] [address]- 9868 Nov, [facility] [place] [facility] [address] [id number] [place] [address]- 0726 10 Nov, 2013 [facility] [place] [facility] [address] [id number] [place] [address]- 0131 08 Sep, 2013 [facility] [place] [facility] [address] [id number] [place] [address]- 2845 08 Nov, 2013 [facility] [place] [facility] [address] [id number] [place] [address]- 1583 08 Sep, 2013 [facility] [place] [facility] [address] [id number] [place] [address]- 3774 08 Sep, 2013 [facility] [place] [facility] [address] [id number] [place] [address]- 3243 08 Sep, 2013 [facility] [place] [facility] [address] [id number] [place] [address]- 6464 08 Nov, 2013 [facility] [place] [facility] [address] [id number] [place] [address]- 7240 04 Nov, 2013 [facility] [place] [facility] [address] [id number] [place] [address]- 5117 04 Nov, 2013 [facility] [place] [facility] [address] [id number] [place] [address]- 0201 03 Nov, 2013 [facility] [place] [facility] [address] [id number] [place] [address]- 3824 02 Nov, 2013 [facility] [place] [facility] [address] [id number] [place] [address]- 1063 Nov, 2013 [facility] [place] [facility] [address] [id number] [place] [address]- 0165 Oct, [facility] [place] [facility] [address] [id number] [place] [address]- 9927 Oct, [facility] [place] [facility] [address] [id number] [place] [address]- 1915 Oct, [facility] [place] [facility] [address] [id number] [place] [address]- 2859 Oct, [facility] [place] [facility] [address] [id number] [place] [address]- 5971 Oct, [facility] [place] [facility] [address] [id number] [place] [address]- 2127 Oct, [facility] [place] [facility] [address] [id number] [place] [address]- 1712 Oct, [facility] [place] [facility] [address] [id number] [place] [address]- 3144 Oct, [facility] [place] [facility] [address] [id number] [place] [address]- 2881 Oct, [facility] [place] [facility] [address] [id number] [place] [address]- 1400 Oct, [facility] [place] [facility] [address] [id number] [place] [address]- 4692 Oct, [facility] [place] [facility] [address] [id number] [place] [address]- 1182 Oct, [facility] [place] [facility] [address] [id number] [place] [address]- 5998 Oct, [facility] [place] [facility] [address] [id number] [place] [address]- 9317 Oct, [facility] [place] [facility] [address] [id number] [place] [address]- 0516 Sep, [facility] [place] [facility] [address] [id number] [place] [address]- 0947 Sep, [facility] [place] [facility] [address] [id number] [place] [address]- 4371 Sep, [facility] [place] [facility] [address] [id number] [place] [address]- 8182 Sep, [facility] [place] [facility] [address] [id number] [place] [address]- 6007 Sep, [facility] [place] [facility] [address] [id number] [place] [address]- 2866 Sep, [facility] [place] [facility] [address] [id number] [place] [address]- 6078 Sep, [facility] [place] [facility] [address] [id number] [place] [address]- 7106 Sep, [facility] [place] [facility] [address] [id number] [place] [address]- 0879 Aug, [facility] [place] [facility] [address] [id number] [place] [address]- 0441 Aug, [facility] [place] [facility] [address] [id number] [place] [address]- 1535 Aug, [facility] [place] [facility] [address] [id number] [place] [address]- 7946 Aug, [facility] [place] [facility] [address] [id number] [place] [address]- 9799 Aug, [facility] [place] [facility] [address] [id number] [place] [address]- 4982 Aug, [facility] [place] [facility] [address] [id number] [place] [address]- 5137 Aug, [facility] [place] [facility] [address] [id number] [place] [address]- 3428 Aug, [facility] [place] [facility] [address] [id number] [place] [address]- 1531 July, [facility] [place] [facility] [address] [id number] [place] [address]- 2313 July, [facility] [place] [facility] [address] [id number] [place] [address]- 3285 July, [facility] [place] [facility] [address] [id number] [place] [address]- 3263 July, [facility] [place] [facility] [address] [id number] [place] [address]- 4685 July, [facility] [place] [facility] [address] [id number] [place] [address]- 4499 July, [facility] [address] [id number] [place] [address]- 9231 July, [facility] [place] [facility] [address] [id number] [place] [address]- 7749 July, [facility] [place] [facility] [address] [id number] [place] [address]- 8857 Jun, [facility] [place] [facility] [address] [id number] [place] [address]- 5453 Jun, [facility] [place] [facility] [address] [id number] [place] [address]- 0609 Jun, [facility] [place] [facility] [address] [id number] [place] [address]- 9032 Jun, [facility] [place] [facility] [address] [id number] [place] [address]- 4755 Jun, [facility] [place] [facility] [address] [id number] [place] [address]- 5424 Jun, [facility] [place] [facility] [address] [id number] [place] [address]- 2202 Jun, [facility] [place] [facility] [address] [id number] [place] [address]- 6128 Jun, [facility] [place] [facility] [address] [id number] [place] [address]- 0774 Jun, [facility] [place] [facility] [address] [id number] [place] [address]- 7624 Jun, [facility] [place] [facility] [address] [id number] [place] [address]- 0184 Jun, [facility] [place] [facility] [address] [id number] [place] [address]- 9007 Jun, [facility] [place] [facility] [address] [id number] [place] [address]- 8067 May, [facility] [place] [facility] [address] [id number] [place] [address]- 1706 26 May, 2013 [facility] [place] [facility] [address] [id number] [place] [address]- 8042 May, [facility] [place] [facility] [address] [id number] [place] [address]- 6356 May, [facility] [place] [facility] [address] [id number] [place] [address]- 3156 13 May, 2013 [facility] [place] [facility] [address] [id number] [place] [address]- 0799 13 May, 2013 [facility] [place] [facility] [address] [id number] [place] [address]- 4597 12 May, 2013 [facility] [place] [facility] [address] [id number] [place] [address]- 8373 May, [facility] [place] [facility] [address] [id number] [place] [address]- 2793 11 May, 2013 [facility] [place] [facility] [address] [id number] [place] [address]- 6743 11 May, 2013 [facility] [place] [facility] [address] [id number] [place] [address]- 3602 May, [facility] [place] [facility] [address] [id number] [place] [address]- 1487 May, [facility] [place] [facility] [address] [id number] [place] [address]- 7016 10 May, 2013 [facility] [place] [facility] [address] [id number] [place] [address]- 9627 May, [facility] [place] [facility] [address] [id number] [place] [address]- 4856 Apr, [facility] [place] [facility] [address] [id number] [place] [address]- 5086 Apr, [facility] [place] [facility] [address] [id number] [place] [address]- 3753 Apr, [facility] [place] [facility] [address] [id number] [place] [address]- 8040 Apr, [facility] [place] [facility] [address] [id number] [place] [address]- 2662 Apr, [facility] [place] [facility] [address] [id number] [place] [address]- 0746 Apr, [facility] [place] [facility] [address] [id number] [place] [address]- 4132 Mar, [facility] [place] [facility] [address] [id number] [place] [address]- 0931 Mar, [facility] [place] [facility] [address] [id number] [place] [address]- 9862 Mar, [facility] [place] [facility] [address] [id number] [place] [address]- 5450 Mar, [facility] [place] [facility] [address] [id number] [place] [address]- 6796 Mar, [facility] [place] [facility] [address] [id number] [place] [address]- 1255 Mar, [facility] [place] [facility] [address] [id number] [place] [address]- 7613 Mar, [facility] [place] [facility] [address] [id number] [place] [address]- 4132 Mar, [facility] [place] [facility] [address] [id number] [place] [address]- 9191 Mar, [facility] [place] [facility] [address] [id number] [place] [address]- 4496 Mar, [facility] [place] [facility] [address] [id number] [place] [address] Mar, [facility] [place] [facility] [address] [id number] [place] [address] Mar, [facility] [place] [facility] [address] [id number] [place] [address] Mar, [facility] [address] [id number] [place] [address] Mar, [facility] [address] [id number] [place] [address] Feb, [facility] [address] [id number] [place] [address] Feb, [facility] [address] [id number] [place] [address] Feb, [facility] [address] [id number] [place] [address] Feb, [facility] [address] [id number] [place] [address] Feb, [facility] [address] [id number] [place] [address] Feb, [facility] [address] [id number] [place] [address] Feb, [facility] [address] [id number] [place] [address] 164[address] Feb, [facility] [address] [id number] [place] [address] 2010 Feb, [facility] [address] [id number] [place] [address] Feb, [facility] [address] [id number] [place] [address] Feb, [facility] [address] [id number] [place] [address] Feb, [facility] [address] [id number] [place] [address] Feb, [facility] [address] [id number] [place] [address] Feb, [facility] [place] [facility] [address] [id number] [place] [address] 47[address] 05 Feb, 2012 [facility] [place] [facility] [address] [id number] [place] [address] 05 Feb, 2012 [facility] [place] [facility] [address] [id number] [place] [address]35 24 Dec, 2012 [facility] [place] [facility] [address] [id number] [place] [address]- [address] 24 Dec, 2012 [facility] [place] [facility] [address] [id number] [place] [address]- 134[address] 16 Dec, 2012 [facility] [place] [facility] [address] [id number] [place] [address] 1999 16 Dec, 2012 [facility] [place] [facility] [address] [id number] [place] [address]- [address]196 16 Dec, 2012 [facility] [place] [facility] [address] [id number] [place] [address] 164[address] 16 Dec, 2012 [facility] [place] [facility] [address] [id number] [place] [address] 14 Dec, 2012 [facility] [place] [facility] [address] [id number] [place] [address] 14 Dec, 2012 [facility] [place] [facility] [address] [id number] [place] [address] 10 Dec, 2012 [facility] [place] [facility] [address] [id number] [place] [address] 10 Dec, 2012 [facility] [place] [facility] [address] [id number] [place] [address] 10 Dec, 2012 [facility] [place] [facility] [address] [id number] [place] [address] 10 Dec, 2012 [facility] [place] [facility] [address] [id number] [place] [address] 03 Dec, 2012 [facility] [place] [facility] [address] [id number] [place] [address] 25 Nov, 2012 [facility] [address] [id number] [place] [address] 20 Nov, 2012 [facility] [place] [facility] [address] [id number] [place] [address] 79[address] 18 Nov, 2012 [facility] [place] [facility] [address] [id number] [place] [address]993 16 Nov, 2012 [facility] [place] [facility] [address] [id number] [place] [address]- [address] 12 Nov, 2012 [facility] [place] [facility] [address] [id number] [place] [address]- 8533 11 Nov, 2012 [facility] [place] [facility] [address] [id number] [place] [address] 05 Nov, 2012 [facility] [address] [id number] [place] [address]678 15 Oct, 2012 [facility] [place] [facility] [address] [id number] [place] [address] Oct, [facility] [place] [facility] [address] [id number] [place] [address]598 24 Sep, 2012 [facility] [place] [facility] [address] [id number] [place] [address] Sep, [facility] [place] [facility] [address] [id number] [place] [address] Sep, [facility] [place] [facility] [address] [id number] [place] [address]- [address] 17 Sep, 2012 [facility] [place] [facility] [address] [id number] [place] [address]261 15 Sep, 2012 [facility] [place] [facility] [address] [id number] [place] [address]- [address] Sep, [facility] [place] [facility] [address] [id number] [place] [address] 244[address] Sep, [facility] [place] [facility] [address] [id number] [place] [address] 25 Aug, 2012 [facility] [facility] [address] [id number] [place] [address] 18 Aug, 2012 [facility] [place] [facility] [address] [id number] [place] [address] 16 Aug, 2012 [facility] [address] [id number] [place] [address] Aug, [facility] [address] [id number] [place] [address] Aug, [facility] [address] [id number] [place] [address] Aug, [facility] [address] [id number] [place] [address] Aug, [facility] [address] [id number] [place] [address] Aug, [facility] [address] [id number] [place] [address] July, [facility] [address] [id number] [place] [address] July, [facility] [address] [id number] [place] [address] July, [facility] [address] [id number] [place] [id number] July, [facility] [place] [facility] [address] [id number] [place] [address] 289[address] July, [facility] [place] [facility] [address] [id number] [place] [address] Jun, [facility] [place] [facility] [address] [id number] [place] [address] 25[address] May, [facility] [place] [facility] [address] [id number] [place] [address]007 May, [facility] [address] [id number] [place] [address] 04 May, 2012 [facility] [place] [facility] [address] [id number] [place] [address] Apr, [facility] [place] [facility] [address] [id number] [place] [address] 30[address] Apr, [facility] [place] [facility] [address] [id number] [place] [address]- 5585 Apr, [facility] [place] [facility] [address] [id number] [place] [address] 4067 Mar, [facility] [place] [facility] [address] [id number] [place] [address] Mar, [facility] [place] [facility] [address] [id number] [place] [address]84 Mar, [facility] [place] [facility] [address] [id number] [place] [address] Mar, [facility] [place] [facility] [address] [id number] [place] [address] Mar, [facility] [place] [facility] [address] [id number] [place] [address] 44[address] Mar, [facility] [place] [facility] [address] [id number] [place] [address] 111[address] Mar, [facility] [place] [facility] [address] [id number] [place] [address]- 8700 Feb, [facility] [place] [facility] [address] [id number] [place] [address] 2004 Feb, [facility] [place] [facility] [address] [id number] [place] [address] 111[address] Feb, [facility] [place] [facility] [address] [id number] [place] [address] 490[address] Feb, [facility] [place] [facility] [address] [id number] [place] [address] Feb, [facility] [place] [facility] [address] [id number] [place] [address] 3538 Feb, [facility] [place] [facility] [address] [id number] [place] [address] 9727 Feb, [facility] [place] [facility] [address] [id number] [place] [address] 6183 Feb, [facility] [place] [facility] [address] [id number] [place] [address] 385[address] Jan, [facility] [place] [facility] [address] [id number] [place] [address] 1221 Jan, [facility] [place] [facility] [address] [id number] [place] [address] 3506 Jan, [facility] [place] [facility] [address] [id number] [place] [address] 7905 Jan, [facility] [place] [facility] [address] [id number] [place] [address] 7880 Jan, [facility] [place] [facility] [address] [id number] [place] [address] 8979 Jan, [facility] [place] [facility] [address] [facility] [id number] [place] [address] Jan, [facility] [place] [facility] [address] [id number] [place] [address] 4927 Jan, [facility] [place] [facility] [address] [id number] [place] [address] 4914 Jan, [facility] [place] [facility] [address] [id number] [place] [address] Jan, [facility] [place] [facility] [address] [id number] [place] [address] Jan, [facility] [place] [facility] [address] [id number] [place] [address] 4[address] Jan, [facility] [place] [facility] [address] [id number] [place] [address] 7548 Jan, [facility] [place] [facility] [address] [id number] [place] [address] 4673 Jan, [facility] [place] [facility] [address] [id number] [place] [address] 8301 Jan, [facility] [place] [facility] [address] [id number] [place] [address] 7604 Jan, [facility] [place] [facility] [address] [id number] [place] [address] 3490 Dec, [facility] [place] [facility] [address] [id number] [place] [address]654 Dec, [facility] [place] [facility] [address] [id number] [place] [address] Dec, [facility] [place] [facility] [address] [id number] [place] [address]322 Dec, [facility] [place] [facility] [address] [id number] [place] [address]- 3191 Dec, [facility] [place] [facility] [address] [id number] [place] [address] 8513 Dec, [facility] [place] [facility] [address] [facility] [id number] [place] [address]- 6180 Dec, [facility] [place] [facility] [address] [id number] [place] [address] Dec, [facility] [place] [facility] [address] [id number] [place] [address] 9094 Dec, [facility] [place] [facility] [address] [id number] [place] [address]- 7436 Dec, [facility] [place] [facility] [address] [id number] [place] [address] 2529 18 Nov, 2011 [facility] [place] [facility] [address] [id number] [place] [address]84 Nov, [facility] [place] [facility] [address] [id number] [place] [address] 7970 Oct, [facility] [place] [facility] [address] [id number] [place] [address] 6786 Oct, [facility] [place] [facility] [address] [id number] [place] [address]- 0716 Oct, [facility] [place] [facility] [address] [id number] [place] [address]- 5215 Oct, [facility] [place] [facility] [address] [id number] [place] [address]- 1351 Oct, [facility] [place] [facility] [address] [id number] [place] [address]- 0411 Oct, [facility] [place] [facility] [address] [id number] [place] [address]- 6196 Oct, [facility] [place] [facility] [address] [id number] [place] [address]- 8060 Sep, [facility] [place] [facility] [address] [id number] [place] [address]- 0837 Aug, [facility] [place] [facility] [address] [id number] [place] [address]- 6185 Aug, [facility] [place] [facility] [address] [id number] [place] [address]- 0576 Aug, [facility] [place] [facility] [address] [id number] [place] [address]- 1361 Aug, [facility] [place] [facility] [address] [id number] [place] [address]- 1381 Aug, [facility] [place] [facility] [address] [id number] [place] [address]- 8479 July, [facility] [place] [facility] [address] [id number] [place] [address]- 5841 July, [facility] [place] [facility] [address] [id number] [place] [address]- 2826 July, [facility] [address] [id number] [place] [address]- 4228 Jun, [facility] [address] [id number] [place] [address] 2546 Jun, [facility] [address] [id number] [place] [address]- 1976 Jun, [facility] [address] [id number] [place] [address]- 8661 Jun, [facility] [address] [id number] [place] [address]- 9734 May, [facility] [address] [id number] [place] [address]- 5587 30 May, 2011 [facility] [address] [id number] [place] [address]- 6807 29 May, 2011 [facility] [address] [id number] [place] [address]- 9256 28 May, 2011 [facility] [address] [id number] [place] [address]- 2811 May, [facility] [address] [id number] [place] [address]- 4960 May, [facility] [address] [id number] [place] [address]- 6840 May, [facility] [address] [id number] [place] [address]- 6125 May, [facility] [place] [facility] [address] [id number] [place] [address]- 9439 08 May, 2011 [facility] [address] [id number] [place] [address]- 2546 05 May, 2011 [facility] [address] [id number] [place] [address]- 6599 May, [facility] [place] [facility] [address] [id number] [place] [address]- 1383 May, [facility] [place] [facility] [address] [id number] [place] [address]- 0576 Mar, [facility] [place] [facility] [address] [id number] [place] [address]- 3947 Mar, [facility] [place] [facility] [address] [id number] [place] [address]- 0587 28 Feb, 2011 [facility] [place] [facility] [address] [id number] [place] [address]- 4680 Feb, [facility] [place] [facility] [address] [id number] [place] [address]- 3815 Feb, [facility] [place] [facility] [address] [id number] [place] [address]- 1457 15 Feb, 2011 [facility] [place] [facility] [address] [id number] [place] [address]- 6155 Feb, [facility] [place] [facility] [address] [id number] [place] [address]- 5983 Feb, [facility] [place] [facility] [address] [id number] [place] [address]- 8222 Feb, [facility] [place] [facility] [address] [id number] [place] [address]- 1503 Jan, [facility] [place] [facility] [address] [id number] [place] [address]- 0306 Jan, [facility] [place] [facility] [address] [id number] [place] [address]- 6637 22 Jan, 2011 [facility] [place] [facility] [address] [id number] [place] [address]- 9036 17 Jan, 2011 [facility] [place] [facility] [address] [id number] [place] [address]- 5484 07 Jan, 2011 [facility] [place] [facility] [address] [id number] [place] [address]- 5543 Jan, [facility] [address] [id number] [place] [address]- 8214 Dec, [facility] [place] [facility] [address] [id number] [place] [address]- 4676 Dec, [facility] [place] [facility] [address] [id number] [place] [address]- 5376 Dec, [facility] [place] [facility] [address] [id number] [place] [address]- 4812 July, [facility] [place] [facility] [id number] [place] [address], [place] [address]- 0926 July, [facility] [place] [facility] [address] [id number] [place] [address]- 8707 Feb, [facility] [place] [facility] [address] [id number] [place] [address]- 8974 Jan, [facility] [place] [facility] [address] [id number] [place] [address]- 5075 Dec, [facility] [place] [facility] [address] [id number] [place] [address]- 2553 Dec, [facility] [place] [facility] [address] [facility] [id number] [place] [address]- 6045 Sep, [facility] [place] [facility] [address] [id number] [place] [address]- 2002 Aug, [facility] [place] [facility] [address] [id number] [place] [address]- 5776 Jun, [facility] [place] [facility] [address] [id number] [place] [address]- 9386 Jun, [facility] [place] [facility] [address] [id number] [place] [address]- 7865 Jan, [facility] [place] [facility] [address] [id number] [place] [address]- 9024 Jan, [facility] [place] [facility] [id number] [address]- 2434 Jan, [facility] [id number] [place] [address] Jan, [facility] [id number] [place] [address]- 0510 Dec, [facility] [id number] [place] [address] Dec, [facility] [id number] [place] [address]- 0485 Dec, [facility] [id number] [place] [address]- 9002 Nov, [facility] [id number] [place] [address] July, [facility] [address] [id number] [address]- 8633 May, [facility] [id number] [place] [address]- 2663 Apr, [facility] [id number] [place] [address]- 2263 Feb, [facility] [address] [id number] [address]- 9683 Dec, IMMUNIZATIONS No Known Immunizations SOCIAL HISTORY Never Assessed REASON FOR VISIT f/u PLAN OF CARE Activity Details Follow Up 2 Weeks, 1/2 hour Reason: VITAL SIGNS MEDICATIONS Unknown Medications RESULTS No Results PROCEDURES Procedure Date Ordered Result Body Site Psychotherapy, patient &/family, 45 minutes, established patient Feb 08, 2018 INSTRUCTIONS MEDICATIONS ADMINISTERED No Known Medications [...] History back surgery Laminectomy - Ortho 4 [facility] 10/04/2014 Surgical History Pain shot in lower back -Dr. Sheehan 08/23/15 Hospitalization History surgery
--- OUTSIDE RECORDS SUMMARY | 2018-06-14 14:19 | XMS REPORT ---
Author Author ARIAN US Organization [facility] Address [address] [place] [address] Care Team Providers Care Seasonal Warehouse Associate Name Role Phone ARIAN US Unavailable PROBLEMS Type Condition ICD9-CM Code BHE01-HS Code Onset Dates Condition Status SNOMED Code Problem Type 2 diabetes mellitus with complication E11.8 Active 603397379 Problem Acute bilateral low back pain with right-sided sciatica M54.41 Active 011503206 Problem Hyperlipidemia, unspecified E78.5 Active 44300076 Problem Hypertriglyceridemia E78.1 Active 157013919 Problem Obesity, unspecified 278.00 Active 963535249 Problem Other chronic pain G89.29 Active 37212403 Problem Eye exam normal Z01.00 Active 480528289 Problem Post laminectomy syndrome M96.1 Active 79633730 Problem [employer] current use of insulin Z79.4 Active 432541232 Problem New daily persistent headache G44.52 Active 307779319 Problem Lumbago with sciatica, left side M54.42 Active 943593586 Problem Type 2 diabetes mellitus with hyperglycemia E11.65 Active 49148856 Problem Extreme poverty Z59.5 Active 71320550 Problem 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 Active 79107020 Problem Hyperlipidemia 272.4 Active 49107490 Problem Bipolar disorder, in partial remission, most recent episode manic F31.73 Active 05821763 Problem Irritable bowel syndrome with diarrhea K58.0 Active 632637085 Problem Lumbar radiculopathy M54.16 Active 146823498 Problem Non compliance with medical treatment Z91.19 Active 3515549 Problem Bipolar 1 disorder F31.9 Active 843135634 Problem Diabetes E11.9 Active 693276164 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 Z79.891 Active 781491015 ALLERGIES No Information ENCOUNTERS Encounter Location Date Diagnosis [facility] [address] [facility] [id number] [address] Mar, [facility] [id number] [place] [address] 39854- 4861 Dec, [facility] [address] [id number] [place] [address] 56947- 7340 Nov, [facility] [id number] [place] [address] 62837- 2689 Nov, Hypertriglyceridemia E78.1 [facility] [id number] [place] [address] 68076- 6121 Nov, Bipolar 1 disorder F31.9 ; 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 and Extreme poverty Z59.5 [facility] [id number] [place] [address] 74126- 3785 18 Nov, 2017 Type 2 diabetes mellitus with complication E11.8 [facility] [id number] [place] [address] 28803- 0296 18 Nov, 2017 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 and Bipolar disorder, in partial remission, most recent episode manic F31.73 [facility] [address] [id number] [place] [address] 45492- 1201 12 Nov, 2017 Type 2 diabetes mellitus with complication E11.8 [facility] [address] [place] [address] 83712- 4269 11 Nov, 2017 Bipolar 1 disorder F31.9 ; 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 and Extreme poverty Z59.5 [facility] [address] [id number] [place] [address] 70179- 6211 10 Nov, 2017 Type 2 diabetes mellitus with complication E11.8 ; Pain of left upper arm M79.622 ; Pain in right upper arm M79.621 ; Hyperglycemia R73.9 ; Lumbago with sciatica, left side M54.42 and Other chronic pain G89.29 [facility] [address] [place] [address] 70705- 4337 Oct, Bipolar 1 disorder F31.9 ; 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 and Extreme poverty Z59.5 [facility] [address] [place] [address] 69222- 8588 Oct, Type 2 diabetes mellitus with hyperglycemia E11.65 ; [employer] current use of insulin Z79.4 and Other acute gastritis without hemorrhage K29.00 [facility] [address] [id number] [place] [address] 95605- 5923 Oct, Bipolar 1 disorder F31.9 ; 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 and Extreme poverty Z59.5 [facility] [address] [id number] [place] [address] 53568- 3060 Sep, Diarrhea, unspecified R19.7 and Vomiting, unspecified R11.10 [facility] [address] [id number] [place] [address] 00061- 8977 Aug, Type 2 diabetes mellitus with complication E11.8 [place] [id number] [place] [address] 85060- 1638 Aug, [facility] [address] [id number] [place] [address] 58114- 4988 Aug, Bipolar 1 disorder F31.9 ; 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 and Extreme poverty Z59.5 [facility] [address] [id number] [place] [address] 16270- 6021 Aug, 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 and Bipolar disorder, in partial remission, most recent episode manic F31.73 [facility] [address] [id number] [place] [address] 23459- 8165 Aug, Bipolar 1 disorder F31.9 [facility] [address] [id number] [place] [address] 73956- 8213 Aug, [facility] [address] [id number] [place] [address] 85104- 9524 Aug, [facility] [address] [id number] [place] [address] 82607- 3528 Aug, Bipolar 1 disorder F31.9 ; 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 and Extreme poverty Z59.5 [facility] [address] [place] [address] 33716- 6784 July, Type 2 diabetes mellitus with complication E11.8 [facility] [address] [id number] [place] [address] July, Bipolar 1 disorder F31.9 ; 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 and Extreme poverty Z59.5 [facility] [id number] [place] [address] 28326- 3731 Jun, Bipolar 1 disorder F31.9 ; 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 and Extreme poverty Z59.5 [facility] [address] [id number] [place] [address] 17247- 7237 Jun, Bipolar 1 disorder F31.9 ; 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 and Extreme poverty Z59.5 [facility] [address] [id number] [place] [address] 68205- 9184 Jun, Bipolar 1 disorder F31.9 ; 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 and Extreme poverty Z59.5 [facility] [address] [place] [address] 96860- 4947 May, Urinary tract infection without hematuria, site unspecified N39.0 [facility] [address] [id number] [place] [address] 16025- 6994 May, Bipolar 1 disorder F31.9 ; 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 and Extreme poverty Z59.5 [facility] [address] [place] [address] 85404- 8567 Apr, Diabetes E11.9 and Breast cancer screening Z12.31 [facility] [address] [id number] [place] [address] 67693- 6545 Apr, Bipolar 1 disorder F31.9 and 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 [facility] [address] [place] [address] 52542- 1296 Mar, Bipolar 1 disorder F31.9 ; 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 and Extreme poverty Z59.5 [facility] [address] [id number] [place] [address] 97505- 6051 Mar, New daily persistent headache G44.52 ; Leg pain 729.5 and History of carpal tunnel release Z98.890 [facility] [address] [id number] [place] [address] 61497- 0036 Mar, Hyperlipidemia, unspecified E78.5 [facility] [address] 86048- 0609 Mar, Bipolar 1 disorder F31.9 ; 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 and Extreme poverty Z59.5 [facility] [address] 83107- 4533 Feb, Bipolar 1 disorder F31.9 ; 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 and Extreme poverty Z59.5 [facility] [address] 79030- 7136 Feb, Diabetes E11.9 [facility] [address] 92880- 7580 Feb, Viral syndrome B34.[address] 77690- 3406 Jan, Other viral agents as the cause of diseases classified elsewhere B97.89 and Acute upper respiratory infection, unspecified J06.9 [facility] [address] [id number] [place] [address] 53868- 1683 Jan, Bipolar 1 disorder F31.9 and 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 [facility] [address] [id number] [place] [address] 53995- 1249 Jan, Bipolar 1 disorder F31.9 ; 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 and Extreme poverty Z59.5 [facility] [address] [id number] [place] [address] 83821- 7072 Dec, Diabetes E11.9 [facility] [address] [place] [id number]- 2546 Dec, Diabetes E11.9 and Encounter for immunization Z23 [facility] [address] [place] [address] 78795- 8323 Dec, Bipolar 1 disorder F31.9 ; 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 and Extreme poverty Z59.5 [facility] [id number] [place] [address] 84487- 3264 Dec, Back pain M54.9 [facility] [id number] [place] [address] 68488- 6564 Nov, [facility] [address] [id number] [place] [address] 71000- 8455 Nov, Bipolar 1 disorder F31.9 ; 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 and Extreme poverty Z59.5 [facility] [id number] [place] [address] 49552- 2782 Nov, Bipolar 1 disorder F31.9 ; 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 and Extreme poverty Z59.5 [facility] [address] [place] [address] 06591- 9756 Oct, 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 and Bipolar 1 disorder F31.9 [facility] [address] [place] [address] 96844- 9523 Oct, Bipolar 1 disorder F31.9 ; 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 and Extreme poverty Z59.5 [facility] [place] [address] [place] [address] 99989- 9192 Oct, Back pain M54.9 [facility] [address] [place] [address] 68735- 0250 Oct, 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 and Type 2 diabetes mellitus with complication E11.8 [facility] [address] [address]- 6357 Sep, Bipolar 1 disorder F31.9 ; 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 and Extreme poverty Z59.5 [facility] [address] [address]- 6197 Sep, 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 and Bipolar 1 disorder F31.9 [facility] [id number] [place] [address] 33677- 3117 Sep, Bipolar 1 disorder F31.9 ; 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 and Extreme poverty Z59.5 [facility] [address] [id number] [place] [address] 65696- 9609 Aug, Diabetes E11.9 ; Hyperlipidemia, unspecified E78.5 and Lumbar radiculopathy M54.16 [facility] [address] [id number] [place] [address] 06966- 7956 Aug, Bipolar 1 disorder F31.9 ; 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 and Extreme poverty Z59.5 [facility] [address] [id number] [place] [address] 44513- 3519 Aug, [facility] [address] [id number] [place] [address] 09428- 6266 Aug, [facility] [address] [id number] [place] [address] 51701- 6993 Aug, [facility] [id number] [place] [address] 11896- 4944 July, [facility] [id number] [place] [address] 32715- 2273 July, Acute bilateral low back pain with right-sided sciatica M54.41 [facility] [address] [id number] [place] [address] 87121- 7757 July, Bipolar 1 disorder F31.9 ; 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 and Extreme poverty Z59.5 [facility] [address] [place] [address] 11880- 7517 July, Back pain M54.9 and Diabetes E11.9 [facility] [address] [id number] [place] [address] 99105- 6753 Jun, Bipolar 1 disorder F31.9 ; 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 and Extreme poverty Z59.5 [facility] [address] [id number] [place] [address] 9190 Jun, Bipolar 1 disorder F31.9 ; 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 and Extreme poverty Z59.5 [facility] [address] 04348- 3721 May, Visit for pelvic exam Z01.419 ; Acute vaginitis N76.0 and Diabetes E11.9 [facility] [address] 89847- 7096 May, Bipolar 1 disorder F31.9 ; 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 and Extreme poverty Z59.5 [facility] [address] 30681- 3351 May, [facility] [address] 42666- 4292 May, [facility] [address] 77821- 9331 May, Bipolar 1 disorder F31.9 ; 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 and Extreme poverty Z59.5 [facility] [address] [id number] [place] [address] 52257- 7915 May, Hyperlipidemia, unspecified E78.5 [facility] [address] [address] [id number] [place] [address] 58758- 2546 Apr, Breast cancer screening Z12.39 [facility] [address] [address] [id number] [place] [address] 54445- 7087 Mar, [facility] [address] 64997- 5957 Mar, Bipolar disorder, current episode mixed, unspecified F31.60 [facility] [address] 45379- 0625 Mar, Bipolar 1 disorder F31.9 ; 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 and Extreme poverty Z59.5 [facility] [address] 40899- 3391 Feb, Acute nasopharyngitis J00 [facility] [address] 50888- 3968 Feb, Dental examination Z01.20 [facility] [address] 82533- 0674 Feb, Dental cavities K02.9 and Chronic periodontitis, unspecified K05.30 [facility] [address] 23115- 5324 Feb, Low back pain M54.5 and Extreme poverty Z59.5 [facility] [address] 89619- 9396 Feb, [facility] [address] 97710- 0585 Feb, Routine gynecological examination V72.31 ; Breast cancer screening Z12.39 and Herpes simplex type 1 infection B00.9 [facility] [address] 34455- 0599 Feb, Diabetes E11.9 [facility] [address] 97565- 5920 Feb, Encounter for dental examination and cleaning without abnormal findings Z01.20 [facility] [address] 30648- 2672 Jan, Hyperlipidemia, unspecified E78.5 [facility] [address] 13408- 3455 Jan, Bipolar 1 disorder F31.9 ; 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 and Extreme poverty Z59.5 [facility] [address] 20769- 8068 Jan, Diabetes E11.9 [facility] [address] [place] [id number] [place] [address] 91658- 3644 17 Jan, 2016 Diabetes E11.9 [facility] [address] 71069- 6034 14 Dec, 2015 Bipolar 1 disorder F31.9 ; 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 and Extreme poverty Z59.5 [facility] [address] 23150- 8365 13 Dec, 2015 Bipolar disorder, current episode mixed, unspecified F31.60 and 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 [facility] [address] [place] [id number] [place] [address] 53787- 3015 16 Nov, 2015 Bipolar 1 disorder F31.9 ; 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 ; Extreme poverty Z59.5 and Non compliance with medical treatment Z91.19 [facility] [address] [place] [id number] [place] [address] 83250- 4366 Oct, [facility] [address] 13640- 3052 Oct, Dental caries K02.9 [facility] [address] 42435- 6274 Oct, Low back pain M54.5 and Other chronic pain G89.29 [facility] [address] [place] [id number] [place] [address] 15472- 1428 Oct, Bipolar 1 disorder F31.9 ; 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 ; Extreme poverty Z59.5 and Non compliance with medical treatment Z91.19 [facility] [address] [id number] [place] [address] 37568- 6568 Oct, [facility] [address] 11965- 9955 Oct, [facility] [address] [place] [id number] [place] [address] 34251- 4415 Oct, Dental examination Z01.20 [facility] [address] [place] [address]- 2931 Oct, Bipolar 1 disorder F31.9 ; 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 ; Extreme poverty Z59.5 and Non compliance with medical treatment Z91.19 [facility] [address] [place] [address] 02871- 7648 Oct, [facility] [address] [place] [id number] [place] [address] 76140- 5125 Sep, Type 2 diabetes mellitus with complication E11.8 [facility] [address] [place] [id number] [place] [address] 54215- 0345 Sep, Bipolar disorder, current episode mixed, unspecified F31.60 [facility] [address] [id number] [place] [address] 04939- 1613 Sep, Bipolar disorder, current episode mixed, unspecified F31.60 [facility] [address] [id number] [place] [address] 89885- 9107 Sep, Bipolar disorder, in partial remission, most recent episode manic F31.73 ; 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 ; Extreme poverty Z59.5 and Non compliance with medical treatment Z91.19 [facility] [address] [place] [address] 34349- 1633 Aug, Bipolar disorder, in partial remission, most recent episode manic F31.73 ; 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 ; Extreme poverty Z59.5 and Non compliance with medical treatment Z91.19 [facility] [address] [place] [address] 32615- 5327 Aug, Bipolar disorder, in partial remission, most recent episode manic F31.73 ; 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 ; Extreme poverty Z59.5 and Non compliance with medical treatment Z91.19 [facility] [address] [place] [address] 48038- 9833 Aug, [facility] [address] [place] [address] [id number] [place] [address] 08078- 6213 July, Bipolar disorder, in partial remission, most recent episode manic F31.73 ; 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 ; Extreme poverty Z59.5 and Non compliance with medical treatment Z91.19 [facility] [address] [place] [address] 14680- 6361 July, Bipolar disorder, current episode mixed, unspecified F31.60 [facility] [address] [address] [id number] [place] [address] 33896- 4524 July, Bipolar disorder, in partial remission, most recent episode manic F31.73 ; 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 ; Extreme poverty Z59.5 and Non compliance with medical treatment Z91.19 [facility] [address] [id number] [place] [address] 17955- 0324 July, [employer] current 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 Z79.891 and Chronic pain G89.29 [facility] [address] [place] [address] [address] [place] [address] 59341- 0447 Jun, [employer] current 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 Z79.891 and Bipolar 1 disorder F31.9 [facility] [address] [id number] [place] [address] 94406- 2451 Jun, [facility] [address] [id number] [place] [address] 77489- 4168 Jun, [facility] [address] [id number] [place] [address] 17576- 2842 Jun, [facility] [address] [id number] [place] [address] 23411- 7828 Jun, Bipolar disorder, in partial remission, most recent episode manic F31.73 ; 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 and Non compliance with medical treatment Z91.19 [facility] [address] [id number] [place] [address] 55473- 4388 May, Bipolar disorder, in partial remission, most recent episode manic F31.73 ; 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 and Non compliance with medical treatment Z91.19 [facility] [address] [id number] [place] [address] 86091- 0531 May, Bipolar disorder, in partial remission, most recent episode manic F31.73 [facility] [address] 64890- 2388 May, Diabetes E11.9 and Chronic pain G89.29 [facility] [address] 39113- 2302 May, [facility] [address] 80810- 8701 May, Bipolar disorder, in partial remission, most recent episode manic F31.73 ; Non compliance with medical treatment Z91.19 and 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 [facility] [address] [id number] [place] [address] 55542- 8920 May, Type 2 diabetes mellitus with complication E11.8 and Back pain M54.[address] 64596- 7452 May, Bipolar disorder, in partial remission, most recent episode manic F31.73 and 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 [facility] [address] 43015- 7315 Apr, [facility] [address] [id number] [place] [address] 35892- 8652 Apr, [facility] [address] [id number] [place] [address] 82127- 1803 Apr, [address] 07459- 0601 Apr, Diabetes E11.9 ; Irritable bowel syndrome with diarrhea K58.0 and Lumbar radiculopathy M54.16 [facility] [address] [id number] [place] [address] 89905- 9137 Apr, Breast screening Z12.[address] 67436- 9070 Apr, Bipolar disorder, in partial remission, most recent episode manic F31.73 ; Non compliance with medical treatment Z91.19 and 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 [facility] [address] [id number] [place] [address] 98519- 3431 Mar, Edema, unspecified type R60.9 and Type 2 diabetes mellitus with complication E11.8 [place] [id number]- 0740 Mar, Bipolar disorder, in partial remission, most recent episode manic F31.73 ; Non compliance with medical treatment Z91.19 ; 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 and Extreme poverty Z59.5 [facility] [address] [id number] [place] [address] 41880- 7159 Mar, Bipolar disorder, current episode mixed, unspecified F31.60 ; 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 ; Extreme poverty Z59.5 and Generalized anxiety disorder F41.1 [facility] [address] 14722- 2604 Mar, Bipolar disorder, in partial remission, most recent episode manic F31.73 ; 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 and Extreme poverty Z59.5 [facility] [address] [id number] [place] [address] 72233- 2926 Feb, Bipolar disorder, in partial remission, most recent episode manic F31.73 ; 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 and Extreme poverty Z59.5 [facility] [address] [id number] [place] [address] 25532- 7075 Feb, Bipolar disorder, in partial remission, most recent episode manic F31.73 ; 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 and Extreme poverty Z59.5 [facility] [address] [address] [id number] [place] [address] 72924- 9284 Feb, [facility] [address] [id number] [place] [address] 24558- 2630 Jan, Type 2 diabetes mellitus with complication E11.8 and Petechiae R23.3 [facility] [address] [place] [address] [id number] [place] [address] 83024- 5506 Jan, Type 2 diabetes mellitus with complication E11.8 ; Edema, unspecified R60.9 ; Petechiae R23.3 and Diabetes E11.9 [facility] [address] [place] [address] 20337- 3931 Jan, Bipolar disorder, in partial remission, most recent episode manic F31.73 ; 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 and Extreme poverty Z59.5 [facility] [id number] [place] [address] 42070- 4978 Jan, Bipolar disorder, in partial remission, most recent episode manic F31.73 ; 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 and Extreme poverty Z59.5 [facility] [id number] [place] [address] 99638- 9218 Dec, Bipolar disorder, in partial remission, most recent episode manic F31.73 [place] [id number] [place] [address]73- 3203 Dec, Edema, due to unspecified malnutrition type, unspecified edema R60.9 and Essential hypertension I10 [id number] [place] [address] 96758- 5838 Dec, Bipolar disorder, in partial remission, most recent episode manic F31.73 [place] [facility] [id number] [place] [address] 59422- 8357 Nov, Bipolar I disorder, most recent episode (or current) mixed, unspecified 296.60 [place] [facility] [id number] [place] [address] 42613- 3471 24 Nov, 2014 Stress incontinence, female 625.6 ; Back pain 724.5 and Leg pain 729.5 [place] [id number] [place] [address] 14426- 3539 18 Nov, 2014 Generalized anxiety disorder 300.02 and Bipolar II disorder 296.89 [place] [facility] [id number] [id number] [address] Nov, Bipolar I disorder, most recent episode (or current) mixed, unspecified 296.60 [facility] [id number] [address] Oct, [facility] [id number] [address] 2088 Oct, [facility] [id number] [address] 4049 Oct, [facility] [id number] [address]- 9656 Oct, Bipolar I disorder, most recent episode (or current) mixed, unspecified 296.60 [facility] [id number] [address] 9915 Sep, Diabetes 250.00 [facility] [id number] [address] 0751 Sep, Bipolar I disorder, most recent episode (or current) mixed, unspecified 296.60 [facility] [id number] [address] 3635 Sep, [facility] [id number] [address]- 3783 Sep, [facility] [id number] [address]- 5314 Sep, Bipolar I disorder, most recent episode (or current) mixed, unspecified 296.60 [facility] [id number] [address]- 4991 Sep, Bipolar I disorder, most recent episode (or current) mixed, unspecified 296.60 [facility] [id number] [id number] [address]9 Sep, [facility] [id number] [address] 9257 Sep, Anxiety 300.00 ; Diabetes 250.00 and Hyperlipidemia 272.4 [facility] [id number] [address]- 4104 Aug, [facility] [id number] [place] [address] 477068- 6993 Aug, [facility] [id number] [address]- 8203 Aug, [facility] [id number] [place] [address] 274152- 7643 Aug, Bipolar I disorder, most recent episode (or current) mixed, unspecified 296.60 [facility] [id number] [place] [address] 123540- 9903 Aug, Generalized anxiety disorder 300.02 and Bipolar II disorder 296.89 [facility] [id number] [place] [address] 78058- 3860 July, Bipolar I disorder, most recent episode (or current) mixed, unspecified 296.60 [facility] [id number] [address]- 9032 July, Cough 786.2 [facility] [id number] [place] [address] 89212- 2082 July, Bipolar I disorder, most recent episode (or current) mixed, unspecified 296.60 [facility] [id number] [address]- 3892 Jun, Diabetes 250.00 [facility] [id number] [address]- 1521 Jun, [facility] [id number], [place] [address]- 5076 Jun, [facility] [id number] 3646 May, [facility] [id number] [address] 3009 May, [facility] [place] [facility] [address] [id number] [place] [address]- 9032 May, [facility] [place] [facility] [address] [id number] [place] [address]- 6901 May, [facility] [place] [facility] [address] [id number] [place] [address]- 6087 May, [facility] [place] [facility] [address] [id number] [place] [address]- 8666 May, [facility] [place] [facility] [address] [id number] [place] [address]- 6070 Apr, [facility] [place] [facility] [address] [id number] [place] [address]- 7168 Apr, [facility] [place] [facility] [address] [id number] [place] [address]- 4968 Apr, [facility] [place] [facility] [address] [id number] [place] [address]- 5734 Apr, [facility] [place] [facility] [address] [id number] [place] [address]- 6950 Apr, [facility] [place] [facility] [address] [id number] [place] [address]- 3449 Apr, [facility] [place] [facility] [address] [id number] [place] [address]- 3013 Apr, [facility] [place] [facility] [address] [id number] [place] [address]- 5544 Apr, [facility] [place] [facility] [address] [id number] [place] [address]- 0378 Mar, [facility] [place] [facility] [address] [id number] [place] [address]- 2039 Mar, [facility] [place] [facility] [address] [facility] [id number] [place] [address]- 9171 Mar, [facility] [place] [facility] [address] [id number] [place] [address]- 6522 Mar, [facility] [address] [id number] [place] [address]- 6253 Mar, [facility] [place] [facility] [address] [id number] [place] [address]- 8931 Mar, [facility] [address] [id number] [place] [address]- 1588 Mar, [facility] [place] [facility] [address] [id number] [place] [address]- 0674 Mar, [facility] [address] [id number] [place] 8049 Feb, [facility] [address] [id number] [place] [address]- 8973 Feb, [facility] [address] [id number] [place] [address]- 4743 Feb, [facility] [address] [id number] [place] [address]- 3645 Feb, [facility] [place] [facility] [address] [id number] [place] [address]- 1374 Feb, [facility] [address] [id number] [place] [address]- 7858 Feb, [facility] [place] [facility] [address] [id number] [place] [address]- 8180 Feb, [facility] [place] [facility] [address] [id number] [place] [address]- 1565 Feb, [facility] [place] [facility] [address] [id number] [place] [address]- 4682 Feb, [facility] [place] [facility] [address] [id number] [place] [address]- 7386 Feb, [facility] [place] [facility] [address] [id number] [place] [address]- 5451 Jan, [facility] [place] [facility] [address] [id number] [place] [address]- 6590 Jan, [facility] [place] [facility] [address] [id number] [place] [address]- 8099 Jan, [facility] [place] [facility] [address] [id number] [place] [address]- 6011 Jan, [facility] [place] [facility] [address] [id number] [place] [address]- 8266 Jan, [facility] [place] [facility] [address] [id number] [place] [address]- 1168 Jan, [facility] [place] [facility] [address] [id number] [place] [address]- 8098 Jan, [facility] [place] [facility] [address] [id number] [place] [address]- 4944 Jan, [facility] [place] [facility] [address] [id number] [place] [address]- 9676 Jan, [facility] [place] [facility] [address] [id number] [place] [address]- 3279 Jan, [facility] [place] [facility] [address] [id number], [place] [address]- 7442 Jan, [facility] [place] [facility] [address] [id number], [place] [address]- 7001 Jan, [facility] [place] [facility] [address] [id number], [place] [address]- 0881 Jan, [facility] [place] [facility] [address] [id number] [place] [address]- 6560 Jan, [facility] [place] [facility] [address] [id number], [place] [address]- 8441 Jan, [facility] [place] [facility] [address] [id number] [place] [address]- 0013 Dec, [facility] [place] [facility] [address] [id number] [place] [address]- 2974 Dec, 2013 [facility] [place] [facility] [address] [id number] [place] [address]- 8124 16 Dec, 2013 [facility] [place] [facility] [address] [id number] [place] [address]- 5781 16 Dec, 2013 [facility] [place] [facility] [address] [id number] [place] [address]- 0596 09 Dec, 2013 [facility] [place] [facility] [address] [id number] [place] [address]- 5664 09 Dec, 2013 [facility] [place] [facility] [address] [id number] [place] [address]- 1055 Dec, 2013 [facility] [place] [facility] [address] [id number] [place] [address]- 7262 07 Dec, 2013 [facility] [place] [facility] [address] [id number] [place] [address]- 6877 25 Sep, 2013 [facility] [place] [facility] [address] [id number] [place] [address]- 1595 25 Sep, 2013 [facility] [place] [facility] [address] [id number] [place] [address]- 5438 10 Sep, 2013 [facility] [place] [facility] [address] [facility] [id number] [place] [address]- 1079 10 Sep, 2013 [facility] [place] [facility] [address] [id number] [place] [address]- 9556 08 Sep, 2013 [facility] [place] [facility] [address] [id number], [place] [address]- 2541 08 Sep, 2013 [facility] [place] [facility] [address] [id number] [place] [address]- 2548 08 Sep, 2013 [facility] [place] [facility] [address] [id number] [place] [address]- 2548 08 Sep, 2013 [facility] [place] [facility] [address] [id number] [place] [address]- 6905 08 Sep, 2013 [facility] [place] [facility] [address] [id number] [place] [address]- 9404 08 Nov, 2013 [facility] [place] [facility] [address] [id number] [place] [address]- 3843 04 Nov, 2013 [facility] [place] [facility] [address] [id number] [place] [address]- 1326 04 Nov, 2013 [facility] [place] [facility] [address] [id number] [place] [address]- 4901 03 Nov, 2013 [facility] [place] [facility] [address] [id number] [place] [address]- 3510 02 Nov, 2013 [facility] [place] [facility] [address] [id number] [place] [address]- 3810 Nov, 2013 [facility] [place] [facility] [address] [id number] [place] [address]- 5146 Oct, [facility] [place] [facility] [address] [id number] [place] [address]- 5151 Oct, [facility] [place] [facility] [address] [id number] [place] [address]- 3929 Oct, [facility] [place] [facility] [address] [id number] [place] [address]- 6925 Oct, [facility] [place] [facility] [address] [id number] [place] [address]- 3410 Oct, [facility] [place] [facility] [address] [id number] [place] [address]- 3411 Oct, [facility] [place] [facility] [address] [id number] [place] [address]- 2670 Oct, [facility] [place] [facility] [address] [id number] [place] [address]- 7059 Oct, [facility] [place] [facility] [address] [id number] [place] [address]- 5156 Oct, [facility] [place] [facility] [address] [id number] [place] [address]- 2957 Oct, [facility] [place] [facility] [address] [id number] [place] [address]- 2970 Oct, [facility] [place] [facility] [address] [id number] [place] [address]- 9566 Oct, [facility] [place] [facility] [address] [id number] [place] [address]- 4690 Oct, [facility] [place] [facility] [address] [id number] [place] [address]- 5681 Oct, [facility] [place] [facility] [address] [id number] [place] [address]- 5419 Sep, [facility] [place] [facility] [address] [id number] [place] [address]- 2726 Sep, [facility] [place] [facility] [address] [id number] [place] [address]- 9759 Sep, [facility] [place] [facility] [address] [id number] [place] [address]- 2175 Sep, [facility] [place] [facility] [address] [id number] [place] [address]- 2166 Sep, [facility] [place] [facility] [address] [id number] [place] [address]- 5092 Sep, [facility] [place] [facility] [address] [id number] [place] [address]- 5542 Sep, [facility] [place] [facility] [address] [id number] [place] [address]- 6699 Sep, [facility] [place] [facility] [address] [id number] [place] [address]- 3082 Aug, [facility] [place] [facility] [address] [id number] [place] [address]- 1375 Aug, [facility] [place] [facility] [address] [id number] [place] [address]- 7811 Aug, [facility] [place] [facility] [address] [id number] [place] [address]- 8432 Aug, [facility] [address] [id number] [place] [address]- 2814 Aug, [facility] [place] [facility] [address] [id number] [place] [address]- 4846 Aug, [facility] [address] [id number] [place] [address]- 4879 Aug, [facility] [place] [facility] [address] [id number] [place] [address]- 2721 Aug, [facility] [address] [id number] [place] [address]- 8731 July, [facility] [address] [id number] [place] [address]- 0905 July, [facility] [address] [id number] [place] [address]- 9162 July, [facility] [address] [id number] [place] [address]- 0162 July, [facility] [place] [facility] [address] [id number] [place] [address]- 5642 July, [facility] [address] [id number] [place] [address]- 4195 July, [facility] [place] [facility] [address] [id number] [place] [address]- 2517 July, [facility] [place] [facility] [address] [id number] [place] [address]- 2161 July, [facility] [place] [facility] [address] [id number] [place] [address]- 5082 Jun, [facility] [place] [facility] [address] [id number] [place] [address]- 0028 Jun, [facility] [place] [facility] [address] [id number] [place] [address]- 3781 Jun, [facility] [place] [facility] [address] [id number] [place] [address]- 3710 Jun, [facility] [place] [facility] [address] [id number] [place] [address]- 5666 Jun, [facility] [place] [facility] [address] [id number] [place] 8328 Jun, [facility] [place] [facility] [address] [id number] [place] [address]- 5252 Jun, [facility] [place] [facility] [address] [id number] [place] [address]- 8469 Jun, [facility] [place] [facility] [address] [id number] [place] [address]- 6879 Jun, [facility] [place] [facility] [address] [id number] [place] [address]- 3768 Jun, [facility] [place] [facility] [address] [id number] [place] [address]- 0966 Jun, [facility] [place] [facility] [address] [id number] [place] [address]- 1343 Jun, [facility] [place] [facility] [address] [id number] [place] [address]- 9122 May, [facility] [place] [facility] [address] [id number] [place] [address]- 6601 May, [facility] [place] [facility] [address] [id number] [place] [address]- 6560 May, [facility] [place] [facility] [address] [id number] [place] [address]- 7335 May, [facility] [place] [facility] [address] [id number] [place] [address]- 7458 May, [facility] [place] [facility] [address] [id number] [place] 5340 May, [facility] [place] [facility] [address] [id number] [place] [address]- 2985 May, [facility] [place] [facility] [address] [id number] [place] [address]- 7192 May, [facility] [place] [facility] [address] [id number] [place] [address]- 6192 May, [facility] [place] [facility] [address] [facility] [id number] [place] [address]- 2341 May, [facility] [place] [facility] [address] [id number] [place] [address]- 3323 May, [facility] [place] [facility] [address] [id number] [place] [address]- 8753 May, [facility] [place] [facility] [address] [facility] [id number] [place] [address]- 0925 May, [facility] [place] [facility] [address] [facility] [id number] [place] [address]- 9628 May, [facility] [place] [facility] [address] [facility] [id number] [place] [address]- 0285 Apr, [facility] [place] [facility] [address] [facility] [id number] [place] [address]- 6396 Apr, [facility] [place] [facility] [address] [facility] [id number] [place] [address]- 0635 Apr, [facility] [place] [facility] [address] [facility] [id number] [place] [address]- 8653 Apr, [facility] [place] [facility] [address] [facility] [id number] [place] [address]- 9541 Apr, [facility] [place] [facility] [address] [id number] [place] [address]- 0606 Apr, [facility] [place] [facility] [address] [facility] [id number] [place] [address]- 5532 Mar, [facility] [place] [facility] [address] [id number] [place] [address]- 0469 Mar, [facility] [place] [facility] [address] [id number] [place] [address]- 4988 Mar, [facility] [address] [id number] [place] [address]- 3884 Mar, [facility] [place] [facility] [address] [id number] [place] [address]- 7556 Mar, [facility] [address] [id number] [place] [address]- 0331 Mar, [facility] [address] [id number] [place] [address]- 7488 Mar, [facility] [place] [facility] [address] [id number] [place] [address]- 0027 Mar, [facility] [address] [id number] [place] [address]- 3645 Mar, [facility] [address] [id number] [place] [address]- 6780 Mar, [facility] [place] [facility] [address] [id number] [place] [address]- 9150 Mar, [facility] [place] [facility] [address] [id number] [place] [address]- 9849 Mar, [facility] [place] [facility] [address] [id number] [place] [address]- 9273 Mar, [facility] [place] [facility] [address] [id number] [place] [address]- 7655 Mar, [facility] [place] [facility] [address] [id number] [place] [address]- 4641 Feb, [facility] [place] [facility] [address] [id number] [place] [address]- 6583 Feb, [facility] [place] [facility] [address] [id number] [place] [address] Feb, [facility] [place] [facility] [address] [id number] [place] [address] Feb, [facility] [place] [facility] [address] [id number] [place] [address] Feb, [facility] [place] [facility] [address] [id number] [place] [address] Feb, [facility] [place] [facility] [address] [id number] [place] [address] [address] Feb, [facility] [place] [facility] [address] [id number] [place] [address]- 4843 Feb, [facility] [place] [facility] [address] [id number] [place] [address] Feb, [facility] [place] [facility] [address] [id number] [place] [address] Feb, [facility] [place] [facility] [address] [id number] [place] [address] Feb, [facility] [place] [facility] [address] [id number] [place] [address]- [address] Feb, [facility] [place] [facility] [address] [id number] [place] [address] 47[address] Feb, [facility] [place] [facility] [address] [id number] [place] [address]- 8996 Feb, [facility] [place] [facility] [address] [id number], [place] [address] Feb, [facility] [place] [facility] [address] [id number], [place] [address] Feb, [facility] [place] [facility] [address] [id number] [place] [address]- [address] Dec, [facility] [place] [facility] [address] [id number] [place] [address]- [address]99 24 Dec, 2012 [facility] [place] [facility] [address] [id number] [place] [address]- [address] 16 Dec, 2012 [facility] [place] [facility] [address] [id number] [place] [address]- 1586 16 Dec, 2012 [facility] [address] [id number] [place] [address]- 7777 16 Dec, 2012 [facility] [place] [facility] [address] [id number] [place] [address]- 8026 16 Dec, 2012 [facility] [address] [id number] [place] [address]- 7847 14 Dec, 2012 [facility] [place] [facility] [address] [id number] [place] [address]- 3599 14 Dec, 2012 [facility] [address] [id number] [place] [address]- 1595 10 Dec, 2012 [facility] [place] [facility] [address] [id number] [place] [address]- 7160 10 Dec, 2012 [facility] [place] [facility] [address] [id number] [place] [address]- 6586 10 Dec, 2012 [facility] [address] [id number] [place] [address]- 7926 10 Dec, 2012 [facility] [place] [facility] [address] [id number] [place] [address]- 1158 03 Dec, 2012 [facility] [address] [id number] [place] [address]- 1027 25 Sep, 2012 [facility] [place] [facility] [address] [id number] [place] [address]- 2545 20 Sep, 2012 [facility] [place] [facility] [address] [id number] [place] [address]- 2549 18 Sep, 2012 [facility] [place] [facility] [address] [id number] [place] [address]- 5461 16 Sep, 2012 [facility] [place] [facility] [address] [id number] [place] [address]- 2547 12 Sep, 2012 [facility] [place] [facility] [address] [id number] [place] [address]- 4731 Nov, [facility] [place] [facility] [address] [id number] [place] [address]- [address] 05 Nov, 2012 [facility] [place] [facility] [address] [id number] [place] [address]- 395[address] Oct, [facility] [place] [facility] [address] [id number] [place] [address] Oct, [facility] [place] [facility] [address] [id number] [place] [address]- 4[address] Sep, [facility] [place] [facility] [address] [id number] [place] [address]- 9985 Sep, [facility] [place] [facility] [address] [id number] [place] [address]- [address] Sep, [facility] [place] [facility] [address] [id number] [place] [address]- 8739 Sep, [facility] [place] [facility] [address] [id number] [place] [address]- 1932 Sep, [facility] [place] [facility] [address] [id number] [place] [address]- 9133 Sep, [facility] [place] [facility] [address] [id number] [place] [address]- 7473 Sep, [facility] [place] [facility] [address] [id number] [place] [address]- 1196 Aug, [facility] [place] [facility] [address] [id number], [place] [address]- [address] Aug, [facility] [place] [facility] [address] [id number] [place] [address]- [address]645 16 Aug, 2012 [facility] [place] [facility] [address] [id number] [place] [address]- 5897 Aug, [facility] [place] [facility] [address] [id number], [place] [address]- [address]99 Aug, [facility] [place] [facility] [address] [id number], [place] [address] Aug, [facility] [address] [id number] [place] [address]- 5948 Aug, [facility] [address] [id number] [place] [address] 2546 Aug, [facility] [address] [id number] [place] [address] 2546 July, [facility] [address] [id number] [place] [address] 2546 July, [facility] [address] [id number] [place] [address]- 0842 July, [facility] [address] [id number] [place] [id number] July, [facility] [address] [id number] [place] [address] July, [facility] [address] [id number] [place] [address]- 66[address] Jun, [facility] [address] [id number] [place] [address]- 4184 May, [facility] [address] [id number] [place] [address] 2546 May, [facility] [address] [id number] [place] [address]- 7576 May, [facility] [address] [id number], [place] [address]- 2543 Apr, [facility] [address] [id number] [place] [address] 2546 Apr, [facility] [address] [id number] [place] [address]- 2546 Apr, [facility] [address] [id number] [place] [address] 2546 Mar, [facility] [address] [id number] [place] [address]- 3436 28 Mar, 2012 [facility] [address] [id number] [place] [address] 28 Mar, 2012 [facility] [place] [facility] [address] [id number] [place] [address] 14 Mar, 2012 [facility] [place] [facility] [address] [id number] [place] [address] 10 Mar, 2012 [facility] [place] [facility] [address] [id number] [place] [address] Mar, [facility] [place] [facility] [address] [id number] [place] [address] 1584 Mar, [facility] [address] [id number] [place] [address] Feb, [facility] [address] [id number] [place] [address] Feb, [facility] [address] [id number] [place] [address] Feb, [facility] [place] [facility] [address] [id number] [place] [address] 80[address] Feb, [facility] [address] [id number] [place] [address] 17 Feb, 2012 [facility] [place] [facility] [address] [id number] [place] [address] 1640 17 Feb, 2012 [facility] [place] [facility] [address] [id number] [place] [address] 96[address] Feb, [facility] [place] [facility] [address] [id number] [place] [address] 2546 Feb, [facility] [place] [facility] [address] [id number] [place] [address] 59[address] Jan, [facility] [place] [facility] [address] [id number] [place] [address] 3847 Jan, [facility] [place] [facility] [address] [id number] [place] [address]- 1185 Jan, [facility] [place] [facility] [address] [id number] [place] [address]- 268[address] Jan, [facility] [place] [facility] [address] [facility] [id number] [place] [address]- 4468 Jan, [facility] [place] [facility] [address] [id number] [place] [address] Jan, [facility] [place] [facility] [address] [id number] [place] [address]- [address]462 Jan, [facility] [place] [facility] [address] [id number] [place] [address] 8215 Jan, [facility] [place] [facility] [address] [facility] [id number] [place] [address]- 0991 Jan, [facility] [place] [facility] [address] [id number], [place] [address] Jan, [facility] [place] [facility] [address] [id number][place] [address] Jan, [facility] [place] [facility] [address] [facility] [id number], [place] [address] Jan, [facility] [place] [facility] [address] [id number], [place] [address] 28[address] Jan, [facility] [place] [facility] [address] [id number], [place] [address] 8526 Jan, [facility] [place] [facility] [address] [id number], [place] [address] Jan, [facility] [place] [facility] [address] [facility] [id number], [place] [address] Jan, [facility] [place] [facility] [address] [facility] [id number], [place] [address] Dec, [facility] [place] [facility] [address] [id number] [place] [address]- 9733 17 Dec, 2011 [facility] [place] [facility] [address] [id number] [place] [address]- 2811 16 Dec, 2011 [facility] [place] [facility] [address] [id number] [place] [address]- 8006 16 Dec, 2011 [facility] [place] [facility] [address] [id number] [place] [address]- [address]605 Dec, [facility] [place] [facility] [address] [id number] [place] [address]- 4471 Dec, [facility] [place] [facility] [address] [id number] [place] [address]- 2845 Dec, [facility] [place] [facility] [address] [id number] [place] [address]- 9652 Dec, [facility] [place] [facility] [address] [id number] [place] [address]- 0[address] 08 Dec, 2011 [facility] [place] [facility] [address] [id number] [place] [address]- 9598 05 Dec, 2011 [facility] [place] [facility] [address] [id number] [place] [address]- 1421 18 Nov, 2011 [facility] [place] [facility] [address] [id number] [place] [address]- 1565 13 Nov, 2011 [facility] [place] [facility] [address] [id number] [place] [address]- 7448 24 Oct, 2011 [facility] [place] [facility] [address] [id number] [place] [address]- 0321 22 Oct, 2011 [facility] [place] [facility] [address] [id number] [place] [address]- 4037 17 Oct, 2011 [facility] [place] [facility] [address] [id number] [place] [address]- 0191 16 Oct, 2011 [facility] [place] [facility] [address] [id number] [place] [address]- 7235 Oct, [facility] [place] [facility] [address] [id number] [place] [address]- 7634 Oct, [facility] [place] [facility] [address] [id number] [place] [address]- 1142 Oct, [facility] [place] [facility] [address] [id number] [place] [address] Sep, [facility] [place] [facility] [address] [id number] [place] [address]- 2795 Aug, [facility] [address] [id number] [place] [address]- 1195 Aug, [facility] [place] [facility] [address] [id number] [place] [address]- 8974 Aug, [facility] [address] [id number] [place] [address]- 9183 Aug, [facility] [address] [id number] [place] [address]- 3581 Aug, [facility] [place] [facility] [address] [id number] [place] [address]- 0275 July, [facility] [place] [facility] [address] [id number] [place] [address]- 0864 July, [facility] [place] [facility] [address] [id number] [place] [address]- 7404 July, [facility] [place] [facility] [address] [id number] [place] [address]- 3815 Jun, [facility] [place] [facility] [address] [id number] [place] [address]- 9532 Jun, [facility] [place] [facility] [address] [id number] [place] [address]- 8789 Jun, [facility] [place] [facility] [address] [id number] [place] [address]- 1837 Jun, [facility] [place] [facility] [address] [id number] [place] [address]- 0443 30 May, 2011 [facility] [place] [facility] [address] [id number] [place] [address]- 4676 30 May, 2011 [facility] [place] [facility] [address] [id number] [place] [address]- 6356 29 May, 2011 [facility] [place] [facility] [address] [id number] [place] [address]- 1296 28 May, 2011 [facility] [place] [facility] [address] [id number] [place] [address]- 7643 23 May, 2011 [facility] [place] [facility] [address] [id number] [place] [address]- 7180 22 May, 2011 [facility] [place] [facility] [address] [id number] [place] [address]- 1023 21 May, 2011 [facility] [place] [facility] [address] [id number] [place] [address]- 0775 19 May, 2011 [facility] [place] [facility] [address] [id number] [place] [address]- 4597 08 May, 2011 [facility] [place] [facility] [address] [id number] [place] [address]- 0371 05 May, 2011 [facility] [place] [facility] [address] [id number] [place] [address]- 9398 02 May, 2011 [facility] [place] [facility] [address] [id number] [place] [address]- 9396 May, [facility] [place] [facility] [address] [id number] [place] [address]- 0146 Mar, [facility] [place] [facility] [address] [id number] [place] [address]- 7115 Mar, [facility] [place] [facility] [address] [id number] [place] [address]- 2732 Feb, [facility] [place] [facility] [address] [id number] [place] [address]- 1133 Feb, [facility] [place] [facility] [address] [id number] [place] [address]- 9297 20 Feb, 2011 [facility] [address] [id number] [place] [address]- 0960 15 Feb, 2011 [facility] [place] [facility] [address] [id number] [place] [address]- 7896 13 Feb, 2011 [facility] [place] [facility] [address] [id number] [place] [address]- 6886 13 Feb, 2011 [facility] [place] [facility] [address] [id number] [place] [address]- 9493 13 Feb, 2011 [facility] [place] [facility] [address] [id number] [place] [address]44 28 Jan, 2011 [facility] [place] [facility] [address] [id number] [place] [address]- 2605 23 Jan, 2011 [facility] [place] [facility] [address] [id number] [place] [address]- 2244 Jan, [facility] [place] [facility] [address] [id number] [place] [address]- 3562 Jan, [facility] [place] [facility] [address] [id number] [place] [address]- 4604 Jan, [facility] [place] [facility] [address] [id number] [place] [address]- 2259 Jan, [facility] [place] [facility] [address] [id number] [place] [address]- 8891 Dec, [facility] [place] [facility] [address] [id number] [place] [address]- 8762 Dec, [facility] [place] [facility] [address] [id number] [place] [address]- 3647 Dec, [facility] [place] [facility] [address] [id number] [place] [address]- 3154 July, [facility] [place] [facility] [address] [id number] [place] [address]- 8633 July, [facility] [place] [facility] [address] [id number] [place] [address]- 5104 08 Feb, 2010 [facility] [place] [facility] [address] [id number] [place] [address]- 2071 Jan, [facility] [place] [facility] [address] [id number] [place] [address]- 5105 Dec, [facility] [place] [facility] [address] [id number] [place] [address]- 9216 Dec, [facility] [place] [facility] [address] [id number] [place] [address]- 4544 15 Sep, 2009 [facility] [place] [facility] [address] [id number] [place] [address]- 2522 Aug, [facility] [place] [facility] [address] [id number] [place] [address]- 9959 Jun, [facility] [place] [facility] [address] [id number], [place] [address]- 5104 Jun, [facility] [place] [facility] [address] [id number] [place] [address]- 1453 Jan, [facility] [place] [facility] [address] [id number], [place] [address]- 0395 Jan, [facility] [place] [facility] [address] [id number], [place] [address]- 9312 Jan, [facility] [place] [facility] [address] [id number], [place] [address]- 6393 Jan, [facility] [place] [facility] [address] [id number] [place] [address]- 1770 29 Dec, 2008 [facility] [place] [facility] [address] [id number], [place] [address]- 1667 Dec, [facility] [place] [facility] [address] [id number], [place] [address]- 3974 15 Dec, 2008 [facility] [place] [facility] [address] [id number], [place] [address]- 2546 Nov, [facility] [address] [facility] [id number], [place] [address]- 6856 July, [facility] [address] [id number], [place] [address]- 2546 May, [facility] [address] [id number], [place] [address]- 2546 Apr, [facility] [address] [id number], [place] [address]- 2546 Feb, [facility] [address] [id number], [place] [address]- 7987 Dec, IMMUNIZATIONS No Known Immunizations SOCIAL HISTORY Never Assessed REASON FOR VISIT f/u PLAN OF CARE Activity Details Follow Up 2 Weeks Reason: VITAL SIGNS MEDICATIONS Unknown Medications RESULTS No Results PROCEDURES Procedure Date Ordered Result Body Site Psychotherapy, patient &/family, 30 minutes, established patient Dec 16, 2017 INSTRUCTIONS MEDICATIONS ADMINISTERED No Known Medications MEDICAL [...]
--- OUTSIDE RECORDS SUMMARY | 2018-06-14 14:20 | XMS REPORT ---
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 Name Role Phone DOMINICKSOURAV STEPHEN Unavailable PROBLEMS Type Condition ICD9-CM Code MMU01-LK Code Onset Dates Condition Status SNOMED Code Problem Type 2 diabetes mellitus with complication E11.8 Active 695222056 Problem Acute bilateral low back pain with right-sided sciatica M54.41 Active 457423798 Problem Hyperlipidemia, unspecified E78.5 Active 32819366 Problem Hypertriglyceridemia E78.1 Active 169965064 Problem Obesity, unspecified 278.00 Active 862127571 Problem Other chronic pain G89.29 Active 59395126 Problem Eye exam normal Z01.00 Active 128604819 Problem Post laminectomy syndrome M96.1 Active 36019370 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 Active 011412197 Problem New daily persistent headache G44.52 Active 725631189 Problem Lumbago with sciatica, left side M54.42 Active 025163848 Problem Type 2 diabetes mellitus with hyperglycemia E11.65 Active 19727083 Problem Extreme poverty Z59.5 Active 31797548 Problem 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 Active 43980015 Problem Hyperlipidemia 272.4 Active 83232428 Problem Bipolar disorder, in partial remission, most recent episode manic F31.73 Active 53520372 Problem Irritable bowel syndrome with diarrhea K58.0 Active 051984784 Problem Lumbar radiculopathy M54.16 Active 222779667 Problem Non compliance with medical treatment Z91.19 Active 6164706 Problem Bipolar 1 disorder F31.9 Active 114715317 Problem Diabetes E11.9 Active 774640429 Problem 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 Active 351200994 ALLERGIES No Information ENCOUNTERS Encounter Location Date Diagnosis [facility] [address] [facility] [id number] [address] Mar, [place] [id number] [place] [address] 66592- 6340 Dec, [place] [address] [place] [id number] [place] [address] 62091- 6796 Nov, [place] [address] [place] [id number] [place] [address] 45601- 6757 Nov, Hypertriglyceridemia E78.1 [place] [address] [place] [id number] [place] [address] 63127- 4489 Nov, Bipolar 1 disorder F31.9 ; 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 and Extreme poverty Z59.5 [place] [address] [place] [id number] [place] [address] 21633- 2878 18 Nov, 2017 Type 2 diabetes mellitus with complication E11.8 [place] [address] [place] [id number] [place] [address] 99010- 8788 Nov, 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 and Bipolar disorder, in partial remission, most recent episode manic F31.73 [place] [address] [place] [id number] [place] [address] 41902- 2363 12 Nov, 2017 Type 2 diabetes mellitus with complication E11.8 [place] [address] [place] [id number] [place] [address] 03739- 6301 11 Nov, 2017 Bipolar 1 disorder F31.9 ; 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 and Extreme poverty Z59.5 [place] [address] [place] [id number] [place] [address] 14155- 6584 10 Nov, 2017 Type 2 diabetes mellitus with complication E11.8 ; Pain of left upper arm M79.622 ; Pain in right upper arm M79.621 ; Hyperglycemia R73.9 ; Lumbago with sciatica, left side M54.42 and Other chronic pain G89.29 [place] [address] [place] [address] 73211- 0787 Oct, Bipolar 1 disorder F31.9 ; 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 and Extreme poverty Z59.5 [place] [address] [place] [id number] [place] [address] 48169- 0535 Oct, Type 2 diabetes mellitus with hyperglycemia E11.65 ; residential current use of insulin Z79.4 and Other acute gastritis without hemorrhage K29.00 [place] [address] [place] [id number] [place] [address] 35576- 9202 Oct, Bipolar 1 disorder F31.9 ; 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 and Extreme poverty Z59.5 [place] [address] [place] [id number] [place] [address] 44791- 0638 Sep, Diarrhea, unspecified R19.7 and Vomiting, unspecified R11.10 [place] [address] [place] [id number] [place] [address] 44762- 2844 Aug, Type 2 diabetes mellitus with complication E11.8 [place] [id number] [place] [address] 31617- 2280 Aug, [place] [address] [place] [id number] [place] [address] 84863- 1619 Aug, Bipolar 1 disorder F31.9 ; 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 and Extreme poverty Z59.5 [place] [address] [place] [id number] [place] [address] 28656- 6795 Aug, 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 and Bipolar disorder, in partial remission, most recent episode manic F31.73 [place] [address] [place] [id number] [place] [address] 67146- 5925 Aug, Bipolar 1 disorder F31.9 [place] [address] [place] [id number] [place] [address] 35029- 5786 Aug, [place] [address] [place] [id number] [place] [address] 61820- 3486 Aug, [place] [address] [place] [id number] [place] [address] 22633- 4964 Aug, Bipolar 1 disorder F31.9 ; 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 and Extreme poverty Z59.5 [place] [address] [place] [address] 71535- 3749 July, Type 2 diabetes mellitus with complication E11.8 [place] [address] [place] [id number] [place] [phone]55 July, Bipolar 1 disorder F31.9 ; 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 and Extreme poverty Z59.5 [place] [address] [place] [id number] [place] [address] 58625- 5721 Jun, Bipolar 1 disorder F31.9 ; 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 and Extreme poverty Z59.5 [place] [address] [place] [id number] [place] [address] 76194- 8557 Jun, Bipolar 1 disorder F31.9 ; 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 and Extreme poverty Z59.5 [place] [address] [place] [id number] [place] [address] 45600- 4810 Jun, Bipolar 1 disorder F31.9 ; 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 and Extreme poverty Z59.5 [place] [address] [place] [id number] [place] [address] 61750- 4334 May, Urinary tract infection without hematuria, site unspecified N39.0 [place] [address] [place] [id number] [place] [address] 89869- 2209 May, Bipolar 1 disorder F31.9 ; 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 and Extreme poverty Z59.5 [place] [address] [place] [id number] [place] [address] 67234- 1382 Apr, Diabetes E11.9 and Breast cancer screening Z12.31 [place] [address] [place] [id number] [place] [address] 799182- 3805 Apr, Bipolar 1 disorder F31.9 and 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 [place] [address] [place] [address] 89693- 1336 Mar, Bipolar 1 disorder F31.9 ; 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 and Extreme poverty Z59.5 [place] [address] [place] [id number] [place] [address] 39335- 5307 Mar, New daily persistent headache G44.52 ; Leg pain 729.5 and History of carpal tunnel release Z98.890 [place] [address] [place] [id number] [place] [address] 60554- 4575 Mar, Hyperlipidemia, unspecified E78.5 [place] [address] 29568- 4516 Mar, Bipolar 1 disorder F31.9 ; 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 and Extreme poverty Z59.5 [place] [address] 85172- 1926 Feb, Bipolar 1 disorder F31.9 ; 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 and Extreme poverty Z59.5 [place] [address] 50594- 2640 Feb, Diabetes E11.9 [place] [address] 53412- 1049 Feb, Viral syndrome B34.[address] 96254- 4157 Jan, Other viral agents as the cause of diseases classified elsewhere B97.89 and Acute upper respiratory infection, unspecified J06.9 [place] [address] [place] [id number] [place] [address] 59457- 8520 Jan, Bipolar 1 disorder F31.9 and 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 [place] [address] [place] [id number] [place] [address] 60424- 7061 Jan, Bipolar 1 disorder F31.9 ; 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 and Extreme poverty Z59.5 [place] [address] [place] [id number] [place] [address] 00665- 5101 Dec, Diabetes E11.9 [place] [address] 11126- 4694 Dec, Diabetes E11.9 and Encounter for immunization Z23 [facility] [address] [place] [id number] [place] [address] 07395- 1043 Dec, Bipolar 1 disorder F31.9 ; 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 and Extreme poverty Z59.5 [facility] [address] [place] [id number] [place] [address] 68188- 9840 Dec, Back pain M54.9 [facility] [address] [place] [id number] [place] [address] 50776- 3200 Nov, [place] [address] [place] [id number] [place] [address] 66709- 0622 Nov, Bipolar 1 disorder F31.9 ; 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 and Extreme poverty Z59.5 [place] [address] [place] [id number] [place] [address] 31834- 4576 Nov, Bipolar 1 disorder F31.9 ; 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 and Extreme poverty Z59.5 [place] [address] [place] [id number] [place] [address] 02493- 1613 Oct, 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 and Bipolar 1 disorder F31.9 [place] [address] [place] [address] 79417- 0263 Oct, Bipolar 1 disorder F31.9 ; 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 and Extreme poverty Z59.5 [place] [address] [place] [id number] [place] [address] 43405- 4113 Oct, Back pain M54.9 [facility] [address] [place] [id number] [place] [address] 57889- 5948 Oct, 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 and Type 2 diabetes mellitus with complication E11.8 [facility] [address] [place] [address] 71844- 0773 Sep, Bipolar 1 disorder F31.9 ; 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 and Extreme poverty Z59.5 [place] [address] [place] [id number] [place] [address] 92947- 8454 Sep, 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 and Bipolar 1 disorder F31.9 [facility] [address] [place] [id number] [place] [address] 93628- 6467 Sep, Bipolar 1 disorder F31.9 ; 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 and Extreme poverty Z59.5 [place] [address] [place] [id number] [place] [address] 91489- 3274 Aug, Diabetes E11.9 ; Hyperlipidemia, unspecified E78.5 and Lumbar radiculopathy M54.16 [place] [address] [place] [id number] [place] [address] 96583- 8757 Aug, Bipolar 1 disorder F31.9 ; 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 and Extreme poverty Z59.5 [place] [address] [place] [id number] [place] [address] 09449- 6058 Aug, [place] [address] [place] [id number] [place] [address] 38737- 1635 Aug, [place] [address] [place] [id number] [place] [address] 56979- 3100 Aug, [facility] [address] [place] [id number] [place] [address] 29942- 6760 July, [place] [address] [place] [id number] [place] [address] 43674- 3127 July, Acute bilateral low back pain with right-sided sciatica M54.41 [place] [address] [place] [id number] [place] [address] 21447- 3355 July, Bipolar 1 disorder F31.9 ; 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 and Extreme poverty Z59.5 [facility] [address] [place] [id number] [place] [address] 35377- 6926 July, Back pain M54.9 and Diabetes E11.9 [facility] [address] [place] [id number] [place] [address] 75144- 5544 Jun, Bipolar 1 disorder F31.9 ; 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 and Extreme poverty Z59.5 [place] [address] [place] [id number] [place] [address] 8593 Jun, Bipolar 1 disorder F31.9 ; 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 and Extreme poverty Z59.5 [place] [address] [place] [id number] [place] [address] 45498- 7396 May, Visit for pelvic exam Z01.419 ; Acute vaginitis N76.0 and Diabetes E11.9 [place] [address] [place] [id number] [place] [address] 41232- 9940 May, Bipolar 1 disorder F31.9 ; 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 and Extreme poverty Z59.5 [place] [address] [place] [id number] [place] [address] 24791- 8626 May, [place] [address] 13607- 9130 May, [place] [address] [place] [id number] [place] [address] 76249- 9804 May, Bipolar 1 disorder F31.9 ; 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 and Extreme poverty Z59.5 [place] [address] [place] [id number] [place] [address] 81226- 6944 May, Hyperlipidemia, unspecified E78.5 [place] [address] [place] [id number] [place] [address] 58920- 6255 Apr, Breast cancer screening Z12.39 [place] [address] [place] [id number] [place] [address] 56166- 8590 Mar, [place] [address] 79881- 7865 Mar, Bipolar disorder, current episode mixed, unspecified F31.60 [place] [address] [place] [id number] [place] [address] 22934- 9562 Mar, Bipolar 1 disorder F31.9 ; 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 and Extreme poverty Z59.5 [place] [address] [place] [id number] [place] [address] 14679- 9712 Feb, Acute nasopharyngitis J00 [place] [address] [place] [id number] [place] [address] 21787- 5032 Feb, Dental examination Z01.20 [place] [address] 51691- 3657 Feb, Dental cavities K02.9 and Chronic periodontitis, unspecified K05.30 [place] [address] 84824- 3298 Feb, Low back pain M54.5 and Extreme poverty Z59.5 [place] [address] 27966- 8634 Feb, [place] [address] 29496- 8213 Feb, Routine gynecological examination V72.31 ; Breast cancer screening Z12.39 and Herpes simplex type 1 infection B00.9 [place] [address] 81613- 9854 Feb, Diabetes E11.9 [place] [address] 96732- 7454 Feb, Encounter for dental examination and cleaning without abnormal findings Z01.20 [place] [address] [place] [id number] [place] [address] 64650- 0950 Jan, Hyperlipidemia, unspecified E78.5 [place] [address] 69414- 8162 Jan, Bipolar 1 disorder F31.9 ; 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 and Extreme poverty Z59.5 [place] [address] [place] [id number] [place] [address] 47696- 0498 Jan, Diabetes E11.9 [place] [address] [place] [id number] [place] [address] 47169- 0373 17 Jan, 2016 Diabetes E11.9 [place] [address] 34456- 8950 14 Dec, 2015 Bipolar 1 disorder F31.9 ; 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 and Extreme poverty Z59.5 [place] [address] [place] [id number] [place] [address] 31868- 8237 13 Dec, 2015 Bipolar disorder, current episode mixed, unspecified F31.60 and 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 [place] [address] [place] [id number] [place] [address] 34367- 1879 16 Nov, 2015 Bipolar 1 disorder F31.9 ; 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 ; Extreme poverty Z59.5 and Non compliance with medical treatment Z91.19 [place] [address] [place] [id number] [place] [address] 88234- 1222 Oct, [place] [address] [place] [id number] [place] [address] 33572- 5252 Oct, Dental caries K02.9 [place] [address] 43760- 5991 Oct, Low back pain M54.5 and Other chronic pain G89.29 [place] [address] [place] [id number] [place] [address] 13984- 7784 Oct, Bipolar 1 disorder F31.9 ; 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 ; Extreme poverty Z59.5 and Non compliance with medical treatment Z91.19 [place] [address] [place] [id number] [place] [address] 21426- 4848 Oct, [place] [address] 17295- 2067 Oct, [place] [address] [place] [id number] [place] [address] 40962- 9985 Oct, Dental examination Z01.20 [place] [address] 01238- 6922 Oct, Bipolar 1 disorder F31.9 ; 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 ; Extreme poverty Z59.5 and Non compliance with medical treatment Z91.19 [place] [address] [place] [address] 43729- 3551 Oct, [place] [address] [place] [id number] [place] [address] 69814- 4745 Sep, Type 2 diabetes mellitus with complication E11.8 [place] [address] [place] [id number] [place] [address] 79197- 4857 Sep, Bipolar disorder, current episode mixed, unspecified F31.60 [place] [address] [place] [id number] [place] [address] 10631- 7471 Sep, Bipolar disorder, current episode mixed, unspecified F31.60 [place] [address] [place] [address] 79062- 1162 Sep, Bipolar disorder, in partial remission, most recent episode manic F31.73 ; 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 ; Extreme poverty Z59.5 and Non compliance with medical treatment Z91.19 [place] [address] [place] [address] 33883- 5856 Aug, Bipolar disorder, in partial remission, most recent episode manic F31.73 ; 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 ; Extreme poverty Z59.5 and Non compliance with medical treatment Z91.19 [place] [address] [place] [address] 43646- 6406 Aug, Bipolar disorder, in partial remission, most recent episode manic F31.73 ; 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 ; Extreme poverty Z59.5 and Non compliance with medical treatment Z91.19 [place] [address] [place] [address] 29402- 8772 Aug, [place] [address] [place] [address] 27673- 6088 July, Bipolar disorder, in partial remission, most recent episode manic F31.73 ; 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 ; Extreme poverty Z59.5 and Non compliance with medical treatment Z91.19 [place] [address] [place] [id number] [place] [address] 78184- 9369 July, Bipolar disorder, current episode mixed, unspecified F31.60 [place] [address] [place] [id number] [place] [address] 59749- 8140 July, Bipolar disorder, in partial remission, most recent episode manic F31.73 ; 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 ; Extreme poverty Z59.5 and Non compliance with medical treatment Z91.19 [place] [address] [place] [id number] [place] [address] 57588- 7512 July, residential current 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 Z79.891 and Chronic pain G89.29 [place] [address] 55407- 1744 Jun, 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 and Bipolar 1 disorder F31.9 [place] [address] [place] [id number] [place] [address] 20740- 6642 Jun, [place] [address] [place] [id number] [place] [address] 30378- 9700 Jun, [place] [address] [place] [id number] [place] [address] 46717- 7853 Jun, [place] [address] [place] [id number] [place] [address] 86663- 0933 Jun, Bipolar disorder, in partial remission, most recent episode manic F31.73 ; 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9 and Chronic pain G89.29 [place] [id number] [place] [address] 93728- 5037 May, [place] [address] [place] [id number] [place] [address] 72458- 1036 May, Bipolar disorder, in partial remission, most recent episode manic F31.73 ; Non compliance with medical treatment Z91.19 and 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 [place] [id number] [place] [address] 63118- 6613 May, Type 2 diabetes mellitus with complication E11.8 and Back pain M54.[address] 79035- 1032 May, Bipolar disorder, in partial remission, most recent episode manic F31.73 and 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 [place] [address] [place] [id number] [place] [address] 08398- 0608 Apr, [place] [address] [place] [id number] [place] [address] 17446- 8401 Apr, [place] [address] [place] [id number] [place] [address] 42907- 9201 Apr, [place] [id number] [place] [address] 50049- 6955 Apr, Diabetes E11.9 ; Irritable bowel syndrome with diarrhea K58.0 and Lumbar radiculopathy M54.16 [place] [id number] [place] [address] 20630- 6971 Apr, Breast screening Z12.39 [place] [id number] [place] [address] 94132- 3291 Apr, Bipolar disorder, in partial remission, most recent episode manic F31.73 ; Non compliance with medical treatment Z91.19 and 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 [place] [address] [place] [address] 70864- 1520 Mar, Edema, unspecified type R60.9 and Type 2 diabetes mellitus with complication E11.8 [place] [phone]- 3346 Mar, Bipolar disorder, in partial remission, most recent episode manic F31.73 ; Non compliance with medical treatment Z91.19 ; 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 and Extreme poverty Z59.5 [place] [address] [place] [id number] [place] [address] 80011- 6858 Mar, Bipolar disorder, current episode mixed, unspecified F31.60 ; 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 ; Extreme poverty Z59.5 and Generalized anxiety disorder F41.1 [place] [address] [place] [id number] [place] [address] 84289- 2827 Mar, Bipolar disorder, in partial remission, most recent episode manic F31.73 ; 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 and Extreme poverty Z59.5 [place] [address] [place] [id number] [place] [address] 16287- 0169 Feb, Bipolar disorder, in partial remission, most recent episode manic F31.73 ; 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 and Extreme poverty Z59.5 [place] [address] [place] [address] 64761- 2915 Feb, Bipolar disorder, in partial remission, most recent episode manic F31.73 ; 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 and Extreme poverty Z59.5 [place] [address] [place] [id number] [place] [address] 00536- 5929 Feb, [place] [address] [place] [id number] [place] [address] 39021- 4009 Jan, Type 2 diabetes mellitus with complication E11.8 and Petechiae R23.3 [place] [id number] [place] [address] 40415- 7647 Jan, Type 2 diabetes mellitus with complication E11.8 ; Edema, unspecified R60.9 ; Petechiae R23.3 and Diabetes E11.9 [place] [id number] [place] [address] 23952- 4477 Jan, Bipolar disorder, in partial remission, most recent episode manic F31.73 ; 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 and Extreme poverty Z59.5 [place] [address] [place] [id number] [place] [address] 29219- 2362 Jan, Bipolar disorder, in partial remission, most recent episode manic F31.73 ; 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 and Extreme poverty Z59.5 [place] [address] [place] [id number] [place] [address] 58387- 8446 Dec, Bipolar disorder, in partial remission, most recent episode manic F31.73 [place] [address] [place] [id number] [place] [address] 47705- 5439 Dec, Edema, due to unspecified malnutrition type, unspecified edema R60.9 and Essential hypertension I10 [place] [address] [place] [id number] [place] [address] 54054- 6350 Dec, Bipolar disorder, in partial remission, most recent episode manic F31.73 [place] [address] [place] [id number] [place] [address] 20074- 7464 Nov, Bipolar I disorder, most recent episode (or current) mixed, unspecified 296.60 [place] [address] [place] [id number] [place] [address] 98752- 5996 24 Nov, 2014 Stress incontinence, female 625.6 ; Back pain 724.5 and Leg pain 729.5 [place] [address] [place] [id number] [place] [address] 47206- 3776 18 Nov, 2014 Generalized anxiety disorder 300.02 and Bipolar II disorder 296.89 [place] [address] [place] [address] 5[address] Nov, Bipolar I disorder, most recent episode (or current) mixed, unspecified 296.60 [facility] [address] [address] 2862 Oct, [facility] [address] [address] 8507 Oct, [facility] [id number] [address] 6477 Oct, [facility] [address] [address] 2265 Oct, Bipolar I disorder, most recent episode (or current) mixed, unspecified 296.60 [facility] [address] [address] 6803 Sep, Diabetes 250.00 [facility] [id number] [address] 5498 Sep, Bipolar I disorder, most recent episode (or current) mixed, unspecified 296.60 [facility] [address] [address]- 5433 Sep, [facility] [address] [address]- 1802 Sep, [facility] [address] [address]- 9682 Sep, Bipolar I disorder, most recent episode (or current) mixed, unspecified 296.60 [facility] [id number] [address]- 4333 Sep, Bipolar I disorder, most recent episode (or current) mixed, unspecified 296.60 [facility] [address] [address] 4918 Sep, [facility] [address] [address]- 9425 Sep, Anxiety 300.00 ; Diabetes 250.00 and Hyperlipidemia 272.4 [facility] [address] [address]- 4897 Aug, [facility] [id number] [place] [address] 81991- 8481 Aug, [facility] [address] [address]- 7097 Aug, [facility] [id number] [place] [address] 99850- 7713 Aug, Bipolar I disorder, most recent episode (or current) mixed, unspecified 296.60 [facility] [id number] [place] [address] 68004- 6776 Aug, Generalized anxiety disorder 300.02 and Bipolar II disorder 296.89 [facility] [address] [place] [id number] [place] [address] 77457- 5229 July, Bipolar I disorder, most recent episode (or current) mixed, unspecified 296.60 [facility] [address] [address]- 7385 July, Cough 786.2 [facility] [address] [place] [id number] [place] [address] 56621- 5784 July, Bipolar I disorder, most recent episode (or current) mixed, unspecified 296.60 [facility] [address] [address]- 8842 Jun, Diabetes 250.00 [facility] [address], [place] [address]- 1736 Jun, [facility] [id number] [address]- 5360 Jun, [facility] [address] [address]- 5356 May, [facility] [address], [place] [address]- 1422 May, [facility] [place] [facility] [address] [id number] [place] [address]- 6493 May, [facility] [place] [facility] [address] [id number] [place] [address]- 2322 May, [facility] [place] [facility] [address] [id number] [place] [address]- 9136 May, [facility] [place] [facility] [address] [id number] [place] [address]- 6303 May, [facility] [place] [facility] [address] [id number] [place] [address]- 4595 Apr, [facility] [place] [facility] [address] [id number] [place] [address]- 4562 Apr, [facility] [place] [facility] [address] [id number] [place] [address]- 9331 Apr, [facility] [place] [facility] [address] [id number] [place] [address]- 8408 Apr, [facility] [place] [facility] [address] [id number] [place] [address]- 5445 Apr, [facility] [place] [facility] [address] [id number] [place] [address]- 2616 Apr, [facility] [place] [facility] [address] [id number] [place] [address]- 3767 Apr, [facility] [place] [facility] [address] [id number] [place] [address]- 5661 Apr, [facility] [place] [facility] [address] [id number] [place] [address]- 8885 Mar, [facility] [place] [facility] [address] [id number] [place] [address]- 6679 Mar, [facility] [place] [facility] [address] [id number] [place] [address]- 0368 Mar, [facility] [place] [facility] [address] [id number] [place] [address]- 8609 Mar, [facility] [address] [id number] [place] [address]- 4639 Mar, [facility] [address] [id number] [place] [address]- 2424 Mar, [facility] [address] [id number] [place] [address]- 1737 Mar, [facility] [address] [id number] [place] [address]- 7342 Mar, [facility] [address] [id number] [place] 8841 Feb, [facility] [address] [id number] [place] [address]- 0671 Feb, [facility] [address] [id number] [place] [address]- 9316 Feb, [facility] [address] [id number] [place] [address]- 1987 Feb, [facility] [address] [id number] [place] [address]- 3754 Feb, [facility] [address] [id number] [place] [address]- 9116 Feb, [facility] [address] [id number] [place] [address]- 1628 Feb, [facility] [address] [id number] [place] [address]- 1838 Feb, [facility] [place] [facility] [address] [id number] [place] [address]- 1743 Feb, [facility] [place] [facility] [address] [id number] [place] [address]- 0821 Feb, [facility] [address] [id number] [place] 7299 Jan, [facility] [place] [facility] [address] [id number] [place] [address]- 4784 Jan, [facility] [place] [facility] [address] [id number] [place] [address]- 0880 Jan, [facility] [place] [facility] [address] [id number] [place] [address]- 8489 Jan, [facility] [place] [facility] [address] [id number] [place] [address]- 0488 Jan, [facility] [place] [facility] [address] [id number] [place] [address]- 6823 Jan, [facility] [place] [facility] [address] [id number] [place] [address]- 2498 Jan, [facility] [place] [facility] [address] [id number] [place] [address]- 2549 Jan, [facility] [place] [facility] [address] [id number], [place] [address]- 2701 Jan, [facility] [place] [facility] [address] [id number] [place] [address]- 9481 Jan, [facility] [place] [facility] [address] [id number], [place] [address]- 3665 Jan, [facility] [place] [facility] [address] [id number], [place] [address]- 5319 Jan, [facility] [place] [facility] [address] [id number], [place] [address]- 4034 Jan, [facility] [place] [facility] [address] [id number], [place] [address]- 4499 Jan, [facility] [place] [facility] [address] [id number], [place] [address]- 3950 Jan, [facility] [place] [facility] [address] [id number], [place] [address]- 7688 Dec, [facility] [place] [facility] [address] [id number], [place] [address]- 8190 Dec, 2013 [facility] [place] [facility] [address] [id number] [place] [address]- 7825 16 Dec, 2013 [facility] [place] [facility] [address] [id number] [place] [address]- 4486 16 Dec, 2013 [facility] [place] [facility] [address] [facility] [id number] [place] [address]- 4786 Dec, 2013 [facility] [place] [facility] [address] [id number] [place] [address]- 5914 09 Dec, 2013 [facility] [place] [facility] [address] [id number] [place] [address]- 7858 Dec, 2013 [facility] [place] [facility] [address] [id number] [place] [address]- 2862 Dec, 2013 [facility] [place] [facility] [address] [facility] [id number], [place] [address]- 4101 25 Sep, 2013 [facility] [place] [facility] [address] [id number] [place] [address]- 7337 25 Sep, 2013 [facility] [place] [facility] [address] [facility] [id number] [place] [address]- 0000 10 Sep, 2013 [facility] [place] [facility] [address] [facility] [id number], [place] [address]- 0616 10 Sep, 2013 [facility] [place] [facility] [address] [id number], [place] [address]- 0145 08 Sep, 2013 [facility] [place] [facility] [address] [id number], [place] [address]- 2545 08 Sep, 2013 [facility] [place] [facility] [address] [id number], [place] [address]- 9596 08 Sep, 2013 [facility] [place] [facility] [address] [facility] [id number], [place] [address]- 9707 08 Sep, 2013 [facility] [place] [facility] [address] [facility] [id number], [place] [address]- 3335 08 Sep, 2013 [facility] [place] [facility] [address] [id number] [place] [address]- 6026 08 Nov, 2013 [facility] [place] [facility] [address] [id number] [place] [address]- 1636 04 Nov, 2013 [facility] [place] [facility] [address] [id number] [place] [address] 2546 04 Nov, 2013 [facility] [place] [facility] [address] [id number] [place] [address]- 9071 03 Nov, 2013 [facility] [place] [facility] [address] [id number] [place] [address]- 6402 02 Nov, 2013 [facility] [place] [facility] [address] [id number] [place] [address]- 4656 Nov, 2013 [facility] [place] [facility] [address] [id number] [place] [address]- 1474 Oct, [facility] [place] [facility] [address] [id number] [place] [address]- 9140 Oct, [facility] [place] [facility] [address] [id number] [place] [address]- 3006 Oct, [facility] [place] [facility] [address] [id number] [place] [address]- 8137 Oct, [facility] [place] [facility] [address] [id number] [place] [address]- 5094 Oct, [facility] [place] [facility] [address] [id number] [place] [address]- 2637 Oct, [facility] [place] [facility] [address] [id number] [place] [address]- 0019 Oct, [facility] [place] [facility] [address] [id number] [place] [address]- 8540 Oct, [facility] [place] [facility] [address] [id number] [place] [address]- 4192 Oct, [facility] [place] [facility] [address] [id number] [place] [address]- 5949 Oct, [facility] [place] [facility] [address] [id number] [place] [address]- 4951 Oct, [facility] [place] [facility] [address] [id number] [place] [address]- 8224 Oct, [facility] [place] [facility] [address] [id number] [place] [address]- 6313 Oct, [facility] [place] [facility] [address] [id number] [place] [address]- 9849 Oct, [facility] [place] [facility] [address] [id number] [place] [address]- 0066 Sep, [facility] [place] [facility] [address] [id number] [place] [address]- 0151 Sep, [facility] [place] [facility] [address] [id number] [place] [address]- 8509 Sep, [facility] [place] [facility] [address] [id number] [place] [address]- 6125 Sep, [facility] [place] [facility] [address] [id number] [place] [address]- 4799 Sep, [facility] [place] [facility] [address] [id number] [place] [address]- 8797 Sep, [facility] [place] [facility] [address] [id number] [place] [address]- 2267 Sep, [facility] [place] [facility] [address] [id number] [place] [address]- 3670 Sep, [facility] [place] [facility] [address] [id number] [place] [address]- 6147 Aug, [facility] [place] [facility] [address] [id number] [place] [address]- 6453 Aug, [facility] [place] [facility] [address] [id number] [place] [address]- 5199 Aug, [facility] [place] [facility] [address] [id number] [place] [address]- 8338 Aug, [facility] [place] [facility] [address] [id number] [place] [address]- 3930 Aug, [facility] [place] [facility] [address] [id number] [place] [address]- 2416 Aug, [facility] [place] [facility] [address] [id number] [place] [address]- 3871 Aug, [facility] [place] [facility] [address] [id number] [place] [address]- 3185 Aug, [facility] [place] [facility] [address] [id number] [place] [address]- 0915 July, [facility] [place] [facility] [address] [id number] [place] [address]- 8121 July, [facility] [place] [facility] [address] [id number] [place] [address]- 1044 July, [facility] [place] [facility] [address] [id number] [place] [address]- 1224 July, [facility] [place] [facility] [address] [id number] [place] [address]- 8974 July, [facility] [place] [facility] [address] [id number] [place] [address]- 7740 July, [facility] [place] [facility] [address] [id number] [place] [address]- 8538 July, [facility] [place] [facility] [address] [id number] [place] [address]- 4643 July, [facility] [place] [facility] [address] [id number] [place] [address]- 1810 Jun, [facility] [place] [facility] [address] [id number] [place] [address]- 5554 Jun, [facility] [place] [facility] [address] [id number] [place] [address]- 3537 Jun, [facility] [place] [facility] [address] [id number] [place] [address]- 9638 Jun, [facility] [place] [facility] [address] [id number] [place] [address]- 9044 Jun, [facility] [place] [facility] [address] [id number] [place] [address]- 5201 Jun, [facility] [place] [facility] [address] [id number] [place] [address]- 5271 Jun, [facility] [place] [facility] [address] [id number] [place] [address]- 3606 Jun, [facility] [place] [facility] [address] [id number] [place] [address]- 6308 Jun, [facility] [place] [facility] [address] [id number] [place] [address]- 7904 Jun, [facility] [place] [facility] [address] [id number] [place] [address]- 4450 Jun, [facility] [place] [facility] [address] [id number] [place] [address]- 0377 Jun, [facility] [place] [facility] [address] [id number] [place] [address]- 8686 May, [facility] [place] [facility] [address] [id number] [place] [address]- 4599 May, [facility] [place] [facility] [address] [id number] [place] [address]- 6333 May, [facility] [place] [facility] [address] [id number] [place] [address]- 6220 May, [facility] [place] [facility] [address] [id number] [place] [address]- 2342 May, [facility] [place] [facility] [address] [id number] [place] [address]- 3969 May, [facility] [place] [facility] [address] [id number] [place] [address]- 7269 May, [facility] [place] [facility] [address] [id number] [place] [address]- 3619 May, [facility] [place] [facility] [address] [id number] [place] 2334 May, [facility] [place] [facility] [address] [id number] [place] [address]- 4593 May, [facility] [place] [facility] [address] [id number] [place] [address]- 6117 May, [facility] [place] [facility] [address] [id number] [place] [address]- 7098 May, [facility] [place] [facility] [address] [id number] [place] [address]- 5250 May, [facility] [place] [facility] [address] [facility] [id number] [place] [address]- 0790 May, [facility] [place] [facility] [address] [id number] [place] [address]- 9511 Apr, [facility] [place] [facility] [address] [id number] [place] [address]- 8134 Apr, [facility] [place] [facility] [address] [facility] [id number] [place] [address]- 1472 Apr, [facility] [place] [facility] [address] [id number] [place] [address]- 4245 Apr, [facility] [place] [facility] [address] [id number] [place] [address]- 4365 Apr, [facility] [place] [facility] [address] [id number] [place] 9743 Apr, [facility] [place] [facility] [address] [id number] [place] 6317 Mar, [facility] [place] [facility] [address] [facility] [id number] [place] [address]- 3485 Mar, [facility] [place] [facility] [address] [id number] [place] [address]- 0814 Mar, [facility] [place] [facility] [address] [id number] [place] [address]- 5544 Mar, [facility] [place] [facility] [address] [id number] [place] [address]- 9477 Mar, [facility] [place] [facility] [address] [id number] [place] [address]- 1750 Mar, [facility] [place] [facility] [address] [id number] [place] [address]- 8204 Mar, [facility] [place] [facility] [address] [id number] [place] [address]- 4899 Mar, [facility] [place] [facility] [address] [id number] [place] [address]- 4624 Mar, [facility] [place] [facility] [address] [id number] [place] [address] Mar, [facility] [place] [facility] [address] [id number] [place] [address] Mar, [facility] [place] [facility] [address] [id number] [place] [address] Mar, [facility] [place] [facility] [address] [id number] [place] [address] Mar, [facility] [place] [facility] [address] [id number] [place] [address] Mar, [facility] [place] [facility] [address] [id number] [place] [address] Feb, [facility] [place] [facility] [address] [id number] [place] [address] Feb, [facility] [place] [facility] [address] [id number] [place] [address] Feb, [facility] [place] [facility] [address] [id number] [place] [address] Feb, [facility] [place] [facility] [address] [id number] [place] [address] Feb, [facility] [place] [facility] [address] [id number] [place] [address] Feb, [facility] [place] [facility] [address] [facility] [id number] [place] [address] Feb, [facility] [place] [facility] [address] [id number] [place] [address] Feb, [facility] [place] [facility] [address] [id number] [place] [address] Feb, [facility] [place] [facility] [address] [id number] [place] [address] Feb, [facility] [place] [facility] [address] [facility] [id number] [place] [address] Feb, [facility] [place] [facility] [address] [id number], [place] [address] Feb, [facility] [place] [facility] [address] [id number], [place] [address] Feb, [facility] [place] [facility] [address] [id number], [place] [address] Feb, [facility] [place] [facility] [address] [id number], [place] [address] Feb, [facility] [place] [facility] [address] [id number], [place] [address] Feb, [facility] [place] [facility] [address] [id number], [place] [address] Dec, [facility] [place] [facility] [address] [id number], [place] [address] 24 Dec, 2012 [facility] [place] [facility] [address] [facility] [id number], [place] [address] Dec, [facility] [place] [facility] [address] [id number] [place] [address] 16 Dec, 2012 [facility] [address] [id number] [place] [address]- [address] 16 Dec, 2012 [facility] [place] [facility] [address] [id number] [place] [address]- [address] 16 Dec, 2012 [facility] [address] [id number] [place] [address] 14 Dec, 2012 [facility] [place] [facility] [address] [id number] [place] [address] 14 Dec, 2012 [facility] [address] [id number] [place] [address]16 10 Dec, 2012 [facility] [place] [facility] [address] [id number] [place] [address] 10 Dec, 2012 [facility] [address] [id number] [place] [address]- [address]85 10 Dec, 2012 [facility] [place] [facility] [address] [id number] [place] [address] 8740 10 Dec, 2012 [facility] [place] [facility] [address] [id number] [place] [address] 03 Dec, 2012 [facility] [place] [facility] [address] [id number] [place] [address]- [address] 25 Sep, 2012 [facility] [place] [facility] [address] [id number] [place] [address]- [address]47 20 Sep, 2012 [facility] [place] [facility] [address] [id number] [place] [address]47 18 Sep, 2012 [facility] [place] [facility] [address] [id number] [place] [address]48 16 Sep, 2012 [facility] [place] [facility] [address] [id number] [place] [address]- [address] 12 Sep, 2012 [facility] [place] [facility] [address] [id number] [place] [address]- [address] 11 Nov, 2012 [facility] [place] [facility] [address] [id number] [place] [address] 05 Nov, 2012 [facility] [place] [facility] [address] [id number] [place] [address] Oct, [facility] [place] [facility] [address] [id number] [place] [address] Oct, [facility] [place] [facility] [address] [id number] [place] [address]- [address] Sep, [facility] [place] [facility] [address] [id number] [place] [address]- [address]10 Sep, [facility] [place] [facility] [address] [id number] [place] [address]- 4765 Sep, [facility] [place] [facility] [address] [id number] [place] [address] Sep, [facility] [place] [facility] [address] [id number] [place] [address]- 4818 Sep, [facility] [place] [facility] [address] [id number] [place] [address]- 0824 Sep, [facility] [place] [facility] [address] [id number] [place] [address]- 1138 Sep, [facility] [place] [facility] [address] [id number] [place] [address]- 5715 Aug, [facility] [place] [facility] [address] [id number] [place] [address]- [address]85 18 Aug, 2012 [facility] [place] [facility] [address] [id number] [place] [address]- [address] 16 Aug, 2012 [facility] [place] [facility] [address] [id number] [place] [address]- [address]873 Aug, [facility] [place] [facility] [address] [id number] [place] [address]- [address] Aug, [facility] [place] [facility] [address] [id number], [place] [address] Aug, [facility] [address] [id number] [place] [address] Aug, [facility] [address] [id number] [place] [address]- 1046 Aug, [facility] [address] [id number] [place] [address] July, [facility] [address] [id number] [place] [address] July, [facility] [address] [id number] [place] [address] July, [facility] [address] [id number] [place] [id number] July, [facility] [address] [id number] [place] [address] July, [facility] [address] [id number] [place] [address] Jun, [facility] [address] [id number] [place] [address] May, [facility] [address] [id number] [place] [address] May, [facility] [address] [id number] [place] [address] May, [facility] [address] [id number] [place] [address] Apr, [facility] [address] [id number] [place] [address] Apr, [facility] [place] [facility] [address] [id number] [place] [address] Apr, [facility] [address] [id number] [place] [address] Mar, [facility] [address] [id number] [place] [address] 28 Mar, 2012 [facility] [address] [id number] [place] [address] 28 Mar, 2012 [facility] [place] [facility] [address] [id number] [place] [address] 14 Mar, 2012 [facility] [address] [id number] [place] [address] 8[address] Mar, [facility] [place] [facility] [address] [id number] [place] [address] Mar, [facility] [address] [id number] [place] [address] 39[address] Mar, [facility] [address] [id number] [place] [address] Feb, [facility] [address] [id number] [place] [address] Feb, [facility] [address] [id number] [place] [address] Feb, [facility] [address] [id number] [place] [address] Feb, [facility] [address] [id number] [place] [address] Feb, [facility] [place] [facility] [address] [id number] [place] [address] 8416 Feb, [facility] [place] [facility] [address] [id number] [place] [address] Feb, [facility] [place] [facility] [address] [id number] [place] [address] Feb, [facility] [place] [facility] [address] [id number] [place] [address] Jan, [facility] [place] [facility] [address] [id number] [place] [address] Jan, [facility] [place] [facility] [address] [id number] [place] [address] Jan, [facility] [place] [facility] [address] [id number] [place] [address] Jan, [facility] [place] [facility] [address] [id number] [place] [address] Jan, [facility] [place] [facility] [address] [id number] [place] [address] 3416 Jan, [facility] [place] [facility] [address] [id number] [place] [address]28 Jan, [facility] [place] [facility] [address] [id number] [place] [address]37 Jan, [facility] [place] [facility] [address] [facility] [id number] [place] [address] 97[address] Jan, [facility] [place] [facility] [address] [id number], [place] [address] Jan, [facility] [place] [facility] [address] [id number] [place] [address] Jan, [facility] [place] [facility] [address] [id number], [place] [address] Jan, [facility] [place] [facility] [address] [id number], [place] [address] Jan, [facility] [place] [facility] [address] [id number], [place] [address] Jan, [facility] [place] [facility] [address] [id number] [place] [address]- 8967 Jan, [facility] [place] [facility] [address] [id number], [place] [address]67 Jan, [facility] [place] [facility] [address] [facility] [id number] [place] [address] Dec, [facility] [place] [facility] [address] [id number] [place] [address] 17 Dec, 2011 [facility] [place] [facility] [address] [id number] [place] [address] 1760 16 Dec, 2011 [facility] [place] [facility] [address] [id number] [place] [address] 16 Dec, 2011 [facility] [place] [facility] [address] [id number] [place] [address] Dec, [facility] [place] [facility] [address] [id number] [place] [address]26 12 Dec, 2011 [facility] [place] [facility] [address] [id number] [place] [address]36 Dec, [facility] [place] [facility] [address] [id number] [place] [address] 3032 Dec, [facility] [place] [facility] [address] [id number] [place] [address]- 5637 08 Dec, 2011 [facility] [place] [facility] [address] [id number] [place] [address]- [address]288 05 Dec, 2011 [facility] [place] [facility] [address] [id number] [place] [address]- 6290 18 Nov, 2011 [facility] [place] [facility] [address] [id number] [place] [address]- [address] 13 Nov, 2011 [facility] [place] [facility] [address] [id number] [place] [address]- 7654 24 Oct, 2011 [facility] [place] [facility] [address] [id number] [place] [address]- 4990 22 Oct, 2011 [facility] [place] [facility] [address] [id number] [place] [address]- 8905 17 Oct, 2011 [facility] [place] [facility] [address] [id number] [place] [address]- 3725 16 Oct, 2011 [facility] [place] [facility] [address] [id number] [place] [address]- 2187 15 Oct, 2011 [facility] [place] [facility] [address] [id number] [place] [address]782 Oct, [facility] [place] [facility] [address] [id number] [place] [address]37 Oct, [facility] [place] [facility] [address] [id number] [place] [address] 6395 Sep, [facility] [place] [facility] [address] [id number] [place] [address]- 1810 Aug, [facility] [place] [facility] [address] [id number] [place] [address]- 5963 Aug, [facility] [place] [facility] [address] [id number] [place] [address]- 9620 Aug, [facility] [place] [facility] [address] [id number] [place] [address]- 2835 Aug, [facility] [place] [facility] [address] [id number] [place] [address]- 9054 Aug, [facility] [place] [facility] [address] [id number] [place] [address]- 4501 July, [facility] [place] [facility] [address] [id number] [place] [address] 0609 July, [facility] [place] [facility] [address] [id number] [place] [address]- 8935 July, [facility] [place] [facility] [address] [id number] [place] [address]- 8998 Jun, [facility] [place] [facility] [address] [id number] [place] [address] Jun, [facility] [place] [facility] [address] [id number] [place] [address]- 8070 Jun, [facility] [place] [facility] [address] [id number] [place] [address]- 4754 Jun, [facility] [place] [facility] [address] [id number] [place] [address]- 5086 30 May, 2011 [facility] [place] [facility] [address] [id number] [place] [address]- 5393 30 May, 2011 [facility] [place] [facility] [address] [id number] [place] [address]- 6066 29 May, 2011 [facility] [place] [facility] [address] [id number] [place] [address]- 2309 28 May, 2011 [facility] [place] [facility] [address] [id number] [place] [address]- 2315 23 May, 2011 [facility] [place] [facility] [address] [id number] [place] [address]- 2698 22 May, 2011 [facility] [place] [facility] [address] [id number] [place] [address]- 5177 21 May, 2011 [facility] [place] [facility] [address] [id number] [place] [address]- 9338 May, [facility] [place] [facility] [address] [id number] [place] [address]- 5564 08 May, 2011 [facility] [place] [facility] [address] [id number] [place] [address]- 8485 05 May, 2011 [facility] [place] [facility] [address] [id number] [place] [address]- 9175 02 May, 2011 [facility] [place] [facility] [address] [id number] [place] [address]- 8424 May, [facility] [place] [facility] [address] [id number] [place] [address]- 7683 Mar, [facility] [place] [facility] [address] [id number] [place] [address]- 9226 Mar, [facility] [place] [facility] [address] [id number] [place] [address]- 7253 Feb, [facility] [place] [facility] [address] [id number] [place] [address]- 9866 Feb, [facility] [place] [facility] [address] [id number] [place] [address]- 9661 20 Feb, 2011 [facility] [address] [id number] [place] [address]- [address] 15 Feb, 2011 [facility] [place] [facility] [address] [id number] [place] [address]- 6846 13 Feb, 2011 [facility] [address] [id number] [place] [address]- 8826 13 Feb, 2011 [facility] [place] [facility] [address] [id number] [place] [address]- 2695 13 Feb, 2011 [facility] [address] [id number] [place] [address]- 6154 28 Jan, 2011 [facility] [address] [id number] [place] [address]- 5215 23 Jan, 2011 [facility] [address] [id number] [place] [address]- 3254 Jan, [facility] [address] [id number] [place] [address]- 9968 Jan, [facility] [place] [facility] [address] [id number] [place] [address]- 1740 Jan, [facility] [address] [id number] [place] [address]- 1560 Jan, [facility] [place] [facility] [address] [id number] [place] [address]- 0686 Dec, [facility] [place] [facility] [address] [id number] [place] [address]- 6516 Dec, [facility] [place] [facility] [address] [id number] [place] [address] Dec, [facility] [place] [facility] [address] [id number] [place] [address]- 5233 July, [facility] [place] [facility] [address] [id number] [place] [address]- 8399 July, [facility] [place] [facility] [address] [id number], [place] [address]- 4224 08 Feb, 2010 [facility] [place] [facility] [address] [id number], [place] [address]- 1736 Jan, [facility] [place] [facility] [address] [id number], [place] [address]- 5673 Dec, [facility] [place] [facility] [address] [id number], [place] [address]- 4411 Dec, [facility] [place] [facility] [address] [id number], [place] [address]- 7458 Sep, [facility] [place] [facility] [address] [id number], [place] [address]- 1176 Aug, [facility] [place] [facility] [address] [facility] [id number], [place] [address]- 0635 Jun, [facility] [place] [facility] [address] [id number], [place] [address]- 2125 Jun, [facility] [place] [facility] [address] [facility] [id number], [place] [address]- 8908 Jan, [facility] [place] [facility] [address] [facility] [id number], [place] [address]- 2065 Jan, [facility] [place] [facility] [address] [facility] [id number], [place] [address]- 9079 Jan, [facility] [place] [facility] [address] [id number], [place] [address]- 8474 Jan, [facility] [place] [facility] [address] [facility] [id number], [place] [address]- 2651 Dec, [facility] [place] [facility] [address] [id number], [place] [address]- 3866 Dec, [facility] [place] [facility] [address] [facility] [id number], [place] [address]- 9384 15 Dec, 2008 [facility] [place] [facility] [address] [id number], [place] [address] 2546 Nov, [facility] [address] [facility] [id number], [place] [address]- 0766 July, [facility] [address] [id number], [place] [address] 2546 May, [facility] [address] [id number], [place] [address] Apr, [facility] [address] [id number], [place] [address]- [address]166 Feb, [facility] [address] [facility] [id number], [place] [address]- 6896 Dec, IMMUNIZATIONS No Known Immunizations SOCIAL HISTORY Never Assessed REASON FOR VISIT BH f/u- AB/GLEN PLAN OF CARE Activity Details Follow Up Mar Reason: VITAL SIGNS Height 64 in 2017-12-14 Weight 190.8 lbs 2017-12-14 Heart Rate 99 bpm 2017-12-14 Respiratory Rate 20 2017-12-14 BMI 32.75 kg/m2 2017-12-14 Blood pressure systolic 138 mmHg 2017-12-14 Blood pressure diastolic 70 mmHg 2017-12-14 MEDICATIONS Medication Instructions Dosage Frequency Start Date End Date Duration Status Simvastatin 80 MG Orally Once a day 1 tablet in the evening 24h Sep, 90 days Active NovoLog Mix 70/30 Flexpen (70-30) 100 UNIT/ML Subcutaneous 2 times a day Inject 120 units 12h Active Victoza 18 MG/3ML Subcutaneous Once a day inject 1.8 ml 24h 90 days Active Amaryl 4 MG Orally Once a day in AM 1 tablet with breakfast or the first main meal of the day Sep, 30 day(s) Active Migraine Relief 250-250-65 MG Orally Once a day 2 tablets 24h Active Test strips Contour test strips 2 times a day test blood sugar 12h Aug, Active Lamictal 200 MG Orally every evening 1 tablet May, Active Celexa 40 MG Orally Once a day 1 tablet 24h May, Active Melatonin 5 MG Orally Once a day 1 tablet at bedtime as needed with food 24h Active Tizanidine HCl 4 MG Orally Once a day 1 tablet as needed at bedtime 24h July, 30 days Active Metformin HCl 1000 MG Orally twice a day 1 tablet with a meal 12h Nov, 90 days Active Aspirin Adult Low Strength 81 MG Orally Once a day 1 tablet 24h Active Aleve 220 MG Orally every 12 hrs 1 tablet with food or milk as needed 12h Nov, Active NovoFine 32G X 6 MM subcutaneously 3 times a day as directed for use with Victoza and Novolog Pens 8h July, 90 days Active Farxiga 10 MG Orally Once a day 1 tablet 24h Apr, 90 days Active Ativan 0.5 MG Orally Once a day, no early refills 1 tablet as needed Sep, Active Toprol XL 25 mg take 1 tablet by Oral route 1 time per day take at hs 10 May, 2013 Active Actos 45 MG Orally Once a day 1 tablet 24h Apr, 90 days Active RESULTS No Results PROCEDURES [...]
--- OUTSIDE RECORDS SUMMARY | 2018-06-14 14:21 | XMS REPORT ---
Author Author BEVERLY TAO Organization [facility] Address [address] [place] [address] Care Team Providers Care Rn Care Transition Name Role Phone BEVERLY TAO Unavailable PROBLEMS Type Condition ICD9-CM Code ZUR16-RO Code Onset Dates Condition Status SNOMED Code Problem Type 2 diabetes mellitus with complication E11.8 Active 051810225 Problem Acute bilateral low back pain with right-sided sciatica M54.41 Active 675397859 Problem Hyperlipidemia, unspecified E78.5 Active 92312069 Problem Hypertriglyceridemia E78.1 Active 156763535 Problem Obesity, unspecified 278.00 Active 110919897 Problem Other chronic pain G89.29 Active 14126657 Problem Eye exam normal Z01.00 Active 472922867 Problem Post laminectomy syndrome M96.1 Active 65176189 Problem assisted current use of insulin Z79.4 Active 126687347 Problem New daily persistent headache G44.52 Active 410738090 Problem Lumbago with sciatica, left side M54.42 Active 952513218 Problem Type 2 diabetes mellitus with hyperglycemia E11.65 Active 55276674 Problem Extreme poverty Z59.5 Active 00288127 Problem 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 Active 46436191 Problem Hyperlipidemia 272.4 Active 84713870 Problem Bipolar disorder, in partial remission, most recent episode manic F31.73 Active 65267135 Problem Irritable bowel syndrome with diarrhea K58.0 Active 138598200 Problem Lumbar radiculopathy M54.16 Active 372165421 Problem Non compliance with medical treatment Z91.19 Active 0257066 Problem Bipolar 1 disorder F31.9 Active 122291783 Problem Diabetes E11.9 Active 739167699 Problem 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 Active [id number] ALLERGIES No Information ENCOUNTERS Encounter Location Date Diagnosis [facility] [address] [facility] [id number] [address] Mar, [facility] [address] [place] [address] 29768- 6563 Dec, [facility] [id number] [place] [address] 88845- 4011 Nov, [facility] [id number] [place] [address] 89388- 3169 Nov, Hypertriglyceridemia E78.1 [place] [id number] [place] [address] 21927- 7306 Nov, Bipolar 1 disorder F31.9 ; 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 and Extreme poverty Z59.5 [place] [place] [address] [id number] [place] [address] 30241- 1660 18 Nov, 2017 Type 2 diabetes mellitus with complication E11.8 [place] [place] [id number] [place] [address] 99154- 5723 18 Nov, 2017 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 and Bipolar disorder, in partial remission, most recent episode manic F31.73 [place] [place] [address] [id number] [place] [address] 11910- 5636 12 Nov, 2017 Type 2 diabetes mellitus with complication E11.8 [place] [address] [place] [address] 66544- 5061 11 Nov, 2017 Bipolar 1 disorder F31.9 ; 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 and Extreme poverty Z59.5 [place] [address] [id number] [place] [address] 17165- 2802 10 Nov, 2017 Type 2 diabetes mellitus with complication E11.8 ; Pain of left upper arm M79.622 ; Pain in right upper arm M79.621 ; Hyperglycemia R73.9 ; Lumbago with sciatica, left side M54.42 and Other chronic pain G89.29 [place] [address] [place] [address] 39676- 8605 Oct, Bipolar 1 disorder F31.9 ; 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 and Extreme poverty Z59.5 [place] [address] [place] [address] 84234- 3915 Oct, Type 2 diabetes mellitus with hyperglycemia E11.65 ; assisted current use of insulin Z79.4 and Other acute gastritis without hemorrhage K29.00 [place] [address] [id number] [place] [address] 67555- 3824 Oct, Bipolar 1 disorder F31.9 ; 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 and Extreme poverty Z59.5 [place] [address] [id number] [place] [address] 74280- 3109 Sep, Diarrhea, unspecified R19.7 and Vomiting, unspecified R11.10 [place] [id number] [place] [address] 92433- 5804 Aug, Type 2 diabetes mellitus with complication E11.8 [place] [id number] [place] [address] 62222- 3648 Aug, [place] [id number] [place] [address] 58144- 6001 Aug, Bipolar 1 disorder F31.9 ; 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 and Extreme poverty Z59.5 [place] [id number] [place] [address] 83574- 3744 Aug, 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 and Bipolar disorder, in partial remission, most recent episode manic F31.73 [place] [id number] [place] [address] 64034- 5318 Aug, Bipolar 1 disorder F31.9 [place] [id number] [place] [address] 31974- 5443 Aug, [place] [id number] [place] [address] 71442- 4083 Aug, [place] [address] [address] [id number] [place] [address] 38082- 8822 Aug, Bipolar 1 disorder F31.9 ; 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 and Extreme poverty Z59.5 [place] [address] [place] [address] 62785- 0929 July, Type 2 diabetes mellitus with complication E11.8 [place] [address] [id number] [place] [id number] July, Bipolar 1 disorder F31.9 ; 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 and Extreme poverty Z59.5 [place] [id number] [place] [address] 66890- 3261 Jun, Bipolar 1 disorder F31.9 ; 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 and Extreme poverty Z59.5 [place] [id number] [place] [address] 23840- 2997 Jun, Bipolar 1 disorder F31.9 ; 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 and Extreme poverty Z59.5 [place] [place] [id number] [place] [address] 41532- 5294 Jun, Bipolar 1 disorder F31.9 ; 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 and Extreme poverty Z59.5 [place] [address] [place] [address] 02995- 0262 May, Urinary tract infection without hematuria, site unspecified N39.0 [place] [id number] [place] [address] 20546- 1814 May, Bipolar 1 disorder F31.9 ; 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 and Extreme poverty Z59.5 [place] [address] [place] [address] 15817- 1922 Apr, Diabetes E11.9 and Breast cancer screening Z12.31 [facility] [place] [id number] [place] [address] 44844- 0334 Apr, Bipolar 1 disorder F31.9 and 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 [place] [address] [place] [address] 24097- 5880 Mar, Bipolar 1 disorder F31.9 ; 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 and Extreme poverty Z59.5 [place] [id number] [place] [address] 96310- 0011 Mar, New daily persistent headache G44.52 ; Leg pain 729.5 and History of carpal tunnel release Z98.890 [place] [id number] [place] [address] 13487- 8768 Mar, Hyperlipidemia, unspecified E78.5 [place] [address] 72119- 4313 Mar, Bipolar 1 disorder F31.9 ; 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 and Extreme poverty Z59.5 [place] [address] 41914- 2971 Feb, Bipolar 1 disorder F31.9 ; 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 and Extreme poverty Z59.5 [place] [address] 86304- 2513 Feb, Diabetes E11.9 [place] [address] 96851- 6006 Feb, Viral syndrome B34.[address] 61997- 4914 Jan, Other viral agents as the cause of diseases classified elsewhere B97.89 and Acute upper respiratory infection, unspecified J06.9 [place] [id number] [place] [address] 07566- 2723 Jan, Bipolar 1 disorder F31.9 and 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 [place] [id number] [place] [address] 56715- 2627 Jan, Bipolar 1 disorder F31.9 ; 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 and Extreme poverty Z59.5 [place] [id number] [place] [address] 07972- 0717 Dec, Diabetes E11.9 [place] [address] [place] [id number]- 2546 Dec, Diabetes E11.9 and Encounter for immunization Z23 [facility] [address] [place] [address] 03867- 5505 Dec, Bipolar 1 disorder F31.9 ; 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 and Extreme poverty Z59.5 [facility] [id number] [place] [address] 28237- 1172 Dec, Back pain M54.9 [facility] [id number] [place] [address] 05413- 8366 Nov, [place] [id number] [place] [address] 54343- 1704 Nov, Bipolar 1 disorder F31.9 ; 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 and Extreme poverty Z59.5 [place] [id number] [place] [address] 51760- 6282 Nov, Bipolar 1 disorder F31.9 ; 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 and Extreme poverty Z59.5 [place] [address] [place] [address] 75449- 4653 Oct, 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 and Bipolar 1 disorder F31.9 [facility] [address] [place] [address] 75817- 9520 Oct, Bipolar 1 disorder F31.9 ; 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 and Extreme poverty Z59.5 [place] [address] [place] [address] 15920- 7067 Oct, Back pain M54.9 [facility] [address] [place] [address] 45594- 8603 Oct, 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 and Type 2 diabetes mellitus with complication E11.8 [facility] [address] [address]- 9383 Sep, Bipolar 1 disorder F31.9 ; 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 and Extreme poverty Z59.5 [place] [address] [address] 7791 Sep, 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 and Bipolar 1 disorder F31.9 [facility] [id number] [place] [address] 27305- 9965 Sep, Bipolar 1 disorder F31.9 ; 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 and Extreme poverty Z59.5 [place] [id number] [place] [address] 56554- 7036 Aug, Diabetes E11.9 ; Hyperlipidemia, unspecified E78.5 and Lumbar radiculopathy M54.16 [place] [id number] [place] [address] 63162- 4811 Aug, Bipolar 1 disorder F31.9 ; 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 and Extreme poverty Z59.5 [place] [id number] [place] [address] 16050- 4774 Aug, [place] [id number] [place] [address] 89646- 7966 Aug, [place] [id number] [place] [address] 06271- 8830 Aug, [facility] [id number] [place] [address] 29281- 2309 July, [place] [id number] [place] [address] 23208- 1094 July, Acute bilateral low back pain with right-sided sciatica M54.41 [place] [id number] [place] [address] 74458- 9892 July, Bipolar 1 disorder F31.9 ; 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 and Extreme poverty Z59.5 [facility] [address] [place] [address] 72924- 5204 July, Back pain M54.9 and Diabetes E11.9 [facility] [id number] [place] [address] 14236- 9484 Jun, Bipolar 1 disorder F31.9 ; 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 and Extreme poverty Z59.5 [place] [address] [id number] [place] [address] [address]903 Jun, Bipolar 1 disorder F31.9 ; 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 and Extreme poverty Z59.5 [place] [address] 90443- 4656 May, Visit for pelvic exam Z01.419 ; Acute vaginitis N76.0 and Diabetes E11.9 [place] [address] 52861- 6239 May, Bipolar 1 disorder F31.9 ; 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 and Extreme poverty Z59.5 [place] [address] 43928- 5803 May, [place] [address] 22491- 2446 May, [place] [address] 46057- 9025 May, Bipolar 1 disorder F31.9 ; 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 and Extreme poverty Z59.5 [place] [id number] [place] [address] 21872- 6409 May, Hyperlipidemia, unspecified E78.5 [place] [id number] [place] [address] 66473- 0132 Apr, Breast cancer screening Z12.39 [place] [id number] [place] [address] 01540- 9120 Mar, [place] [address] 66623- 0993 Mar, Bipolar disorder, current episode mixed, unspecified F31.60 [place] [address] 56647- 1908 Mar, Bipolar 1 disorder F31.9 ; 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 and Extreme poverty Z59.5 [place] [address] 57595- 8651 Feb, Acute nasopharyngitis J00 [place] [address] 54943- 5917 Feb, Dental examination Z01.20 [place] [address] 59409- 7806 Feb, Dental cavities K02.9 and Chronic periodontitis, unspecified K05.30 [place] [address] 01941- 1119 Feb, Low back pain M54.5 and Extreme poverty Z59.5 [place] [address] 38962- 2185 Feb, [place] [address] 09426- 2264 Feb, Routine gynecological examination V72.31 ; Breast cancer screening Z12.39 and Herpes simplex type 1 infection B00.9 [place] [address] 58418- 1394 Feb, Diabetes E11.9 [place] [address] 57047- 1212 Feb, Encounter for dental examination and cleaning without abnormal findings Z01.20 [place] [address] 71771- 8471 Jan, Hyperlipidemia, unspecified E78.5 [place] [address] 58272- 6863 Jan, Bipolar 1 disorder F31.9 ; 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 and Extreme poverty Z59.5 [place] [address] 31339- 0675 Jan, Diabetes E11.9 [place] [id number] [place] [address] 21498- 3687 17 Jan, 2016 Diabetes E11.9 [place] [address] 36964- 0950 14 Dec, 2015 Bipolar 1 disorder F31.9 ; 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 and Extreme poverty Z59.5 [place] [address] 84669- 1708 13 Dec, 2015 Bipolar disorder, current episode mixed, unspecified F31.60 and 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 [place] [id number] [place] [address] 47284- 2017 16 Nov, 2015 Bipolar 1 disorder F31.9 ; 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 ; Extreme poverty Z59.5 and Non compliance with medical treatment Z91.19 [place] [id number] [place] [address] 21908- 7947 Oct, [place] [address] 81366- 5072 Oct, Dental caries K02.9 [place] [address] 88750- 4433 Oct, Low back pain M54.5 and Other chronic pain G89.29 [place] [id number] [place] [address] 68679- 8570 Oct, Bipolar 1 disorder F31.9 ; 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 ; Extreme poverty Z59.5 and Non compliance with medical treatment Z91.19 [place] [id number] [place] [address] 13992- 6854 Oct, [place] [address] 62829- 5433 Oct, [place] [id number] [place] [address] 70034- 3081 Oct, Dental examination Z01.20 [place] [address] [place] [address]- 3573 Oct, Bipolar 1 disorder F31.9 ; 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 ; Extreme poverty Z59.5 and Non compliance with medical treatment Z91.19 [place] [address] [place] [address] 05325- 1142 Oct, [place] [address] [id number] [place] [address] 83863- 8132 Sep, Type 2 diabetes mellitus with complication E11.8 [place] [address] [place] [id number] [place] [address] 76131- 6345 Sep, Bipolar disorder, current episode mixed, unspecified F31.60 [place] [address] [id number] [place] [address] 00518- 9845 Sep, Bipolar disorder, current episode mixed, unspecified F31.60 [place] [id number] [place] [address] 36817- 0402 Sep, Bipolar disorder, in partial remission, most recent episode manic F31.73 ; 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 ; Extreme poverty Z59.5 and Non compliance with medical treatment Z91.19 [place] [address] [place] [address] 73087- 9138 Aug, Bipolar disorder, in partial remission, most recent episode manic F31.73 ; 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 ; Extreme poverty Z59.5 and Non compliance with medical treatment Z91.19 [place] [address] [place] [address] 03521- 7032 Aug, Bipolar disorder, in partial remission, most recent episode manic F31.73 ; 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 ; Extreme poverty Z59.5 and Non compliance with medical treatment Z91.19 [place] [address] [place] [address] 42378- 7517 Aug, [place] [id number] [place] [address] 50422- 4609 July, Bipolar disorder, in partial remission, most recent episode manic F31.73 ; 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 ; Extreme poverty Z59.5 and Non compliance with medical treatment Z91.19 [place] [address] [place] [address] 46051- 8422 July, Bipolar disorder, current episode mixed, unspecified F31.60 [place] [id number] [place] [address] 68980- 6546 July, Bipolar disorder, in partial remission, most recent episode manic F31.73 ; 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 ; Extreme poverty Z59.5 and Non compliance with medical treatment Z91.19 [place] [id number] [place] [address] 86871- 4385 July, assisted current 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 Z79.891 and Chronic pain G89.29 [place] [id number] [place] [address] 76235- 3307 Jun, 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 and Bipolar 1 disorder F31.9 [place] [id number] [place] [address] 16242- 6219 Jun, [place] [address] [id number] [place] [address] 36804- 3419 Jun, [place] [address] [id number] [place] [address] 65605- 7618 Jun, [place] [address] [id number] [place] [address] 21335- 1027 Jun, Bipolar disorder, in partial remission, most recent episode manic F31.73 ; 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 and Non compliance with medical treatment Z91.19 [place] [id number] [place] [address] 85445- 7031 May, Bipolar disorder, in partial remission, most recent episode manic F31.73 ; 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 and Non compliance with medical treatment Z91.19 [place] [id number] [place] [address] 07915- 0267 May, Bipolar disorder, in partial remission, most recent episode manic F31.73 [place] [address] 22341- 1024 May, Diabetes E11.9 and Chronic pain G89.29 [place] [address] 77282- 5162 May, [place] [address] 40958- 7427 May, Bipolar disorder, in partial remission, most recent episode manic F31.73 ; Non compliance with medical treatment Z91.19 and 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 [place] [address] [id number] [place] [address] 93083- 3215 May, Type 2 diabetes mellitus with complication E11.8 and Back pain M54.[address] 70574- 3105 May, Bipolar disorder, in partial remission, most recent episode manic F31.73 and 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 [place] [address] 48207- 7545 Apr, [place] [id number] [place] [address] 03553- 9254 Apr, [place] [address] [address] [id number] [place] [address] 07676- 5199 Apr, [address] 25450- 1822 Apr, Diabetes E11.9 ; Irritable bowel syndrome with diarrhea K58.0 and Lumbar radiculopathy M54.16 [place] [address] [id number] [place] [address] 80694- 1047 Apr, Breast screening Z12.[address] 60029- 2355 Apr, Bipolar disorder, in partial remission, most recent episode manic F31.73 ; Non compliance with medical treatment Z91.19 and 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 [place] [address] [id number] [place] [address] 34421- 6459 Mar, Edema, unspecified type R60.9 and Type 2 diabetes mellitus with complication E11.8 [place] [id number]- 7010 Mar, Bipolar disorder, in partial remission, most recent episode manic F31.73 ; Non compliance with medical treatment Z91.19 ; 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 and Extreme poverty Z59.5 [place] [address] [id number] [place] [address] 27482- 7431 Mar, Bipolar disorder, current episode mixed, unspecified F31.60 ; 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 ; Extreme poverty Z59.5 and Generalized anxiety disorder F41.1 [place] [address] 61999- 5774 Mar, Bipolar disorder, in partial remission, most recent episode manic F31.73 ; 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 and Extreme poverty Z59.5 [place] [address] [id number] [place] [address] 53494- 2399 Feb, Bipolar disorder, in partial remission, most recent episode manic F31.73 ; 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 and Extreme poverty Z59.5 [place] [address] [id number] [place] [address] 90350- 3559 Feb, Bipolar disorder, in partial remission, most recent episode manic F31.73 ; 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 and Extreme poverty Z59.5 [place] [address] [id number] [place] [address] 47031- 2241 Feb, [place] [address] [id number] [place] [address] 18558- 9109 Jan, Type 2 diabetes mellitus with complication E11.8 and Petechiae R23.3 [place] [address] [address] [id number] [place] [address] 85672- 1569 Jan, Type 2 diabetes mellitus with complication E11.8 ; Edema, unspecified R60.9 ; Petechiae R23.3 and Diabetes E11.9 [place] [address] [place] [address] 18686- 7868 Jan, Bipolar disorder, in partial remission, most recent episode manic F31.73 ; 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 and Extreme poverty Z59.5 [place] [address] [address] [id number] [place] [address] 91007- 2257 Jan, Bipolar disorder, in partial remission, most recent episode manic F31.73 ; 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 and Extreme poverty Z59.5 [place] [address] [id number] [place] [address] 42862- 9563 Dec, Bipolar disorder, in partial remission, most recent episode manic F31.73 [place] [id number] [place] [address] 15336- 7942 Dec, Edema, due to unspecified malnutrition type, unspecified edema R60.9 and Essential hypertension I10 [place] [id number] [place] [address] 86278- 3562 Dec, Bipolar disorder, in partial remission, most recent episode manic F31.73 [place] [id number] [place] [address] 67366- 3443 Nov, Bipolar I disorder, most recent episode (or current) mixed, unspecified 296.60 [place] [id number] [place] [address] 36859- 6194 24 Nov, 2014 Stress incontinence, female 625.6 ; Back pain 724.5 and Leg pain 729.5 [place] [id number] [place] [address] 00340- 2731 18 Nov, 2014 Generalized anxiety disorder 300.02 and Bipolar II disorder 296.89 [place] [id number] [address] [address] Nov, Bipolar I disorder, most recent episode (or current) mixed, unspecified 296.60 [facility] [address] [address] 9269 Oct, [facility] [address] [address] 3532 Oct, [facility] [address] [id number] [address]- 9534 Oct, [facility] [address] [address]- 6901 Oct, Bipolar I disorder, most recent episode (or current) mixed, unspecified 296.60 [facility] [address] [address]- 2268 Sep, Diabetes 250.00 [facility] [id number] [address]- 1287 Sep, Bipolar I disorder, most recent episode (or current) mixed, unspecified 296.60 [facility] [id number] [address] Sep, [facility] [address] [address]- 5556 Sep, [facility] [address] [address]- 8124 Sep, Bipolar I disorder, most recent episode (or current) mixed, unspecified 296.60 [facility] [id number] [address]- 1504 Sep, Bipolar I disorder, most recent episode (or current) mixed, unspecified 296.60 [facility] [id number] [id number] [address]00 Sep, [facility] [address] [id number] [address]- 0771 Sep, Anxiety 300.00 ; Diabetes 250.00 and Hyperlipidemia 272.4 [facility] [address] [address]- 1590 Aug, [facility] [id number] [place] [address] 655124- 4235 Aug, [facility] [address] [address]- 1160 Aug, [facility] [id number] [place] [address] 990399- 7960 Aug, Bipolar I disorder, most recent episode (or current) mixed, unspecified 296.60 [facility] [id number] [place] [address] 762070- 1478 Aug, Generalized anxiety disorder 300.02 and Bipolar II disorder 296.89 [facility] [id number] [place] [address] 42795- 8851 July, Bipolar I disorder, most recent episode (or current) mixed, unspecified 296.60 [facility] [address] [address]- 6729 July, Cough 786.2 [facility] [id number] [place] [address] 04680- 4853 July, Bipolar I disorder, most recent episode (or current) mixed, unspecified 296.60 [facility] [address] [address]- 8615 Jun, Diabetes 250.00 [facility] [address] [address]- 7044 Jun, [facility] [address] [address]- 6679 Jun, [facility] [address] [address] 1094 May, [facility] [address] [address] 6478 May, [facility] [place] [facility] [address] [id number] [place] [address]- 9576 May, [facility] [place] [facility] [address] [id number] [place] [address]- 6954 May, [facility] [place] [facility] [address] [id number] [place] [address]- 1583 May, [facility] [place] [facility] [address] [id number] [place] [address]- 9671 May, [facility] [place] [facility] [address] [id number] [place] [address]- 6015 Apr, [facility] [place] [facility] [address] [id number] [place] [address]- 8067 Apr, [facility] [place] [facility] [address] [id number] [place] [address]- 0227 Apr, [facility] [place] [facility] [address] [id number] [place] [address]- 2405 Apr, [facility] [place] [facility] [address] [id number] [place] [address]- 7400 Apr, [facility] [place] [facility] [address] [id number] [place] [address]- 6914 Apr, [facility] [place] [facility] [address] [id number] [place] [address]- 9191 Apr, [facility] [place] [facility] [address] [id number] [place] [address]- 1271 Apr, [facility] [place] [facility] [address] [id number] [place] [address]- 2569 Mar, [facility] [place] [facility] [address] [id number] [place] [address]- 3320 Mar, [facility] [place] [facility] [address] [facility] [id number] [place] [address]- 7011 Mar, [facility] [place] [facility] [address] [id number] [place] [address]- 6497 Mar, [facility] [address] [id number] [place] [address]- 9824 Mar, [facility] [place] [facility] [address] [id number] [place] [address]- 7655 Mar, [facility] [address] [id number] [place] [address]- 1475 Mar, [facility] [place] [facility] [address] [id number] [place] [address]- 3466 Mar, [facility] [address] [id number] [place] 1352 Feb, [facility] [address] [id number] [place] [address]- 6732 Feb, [facility] [address] [id number] [place] [address]- 4973 Feb, [facility] [address] [id number] [place] [address]- 5285 Feb, [facility] [place] [facility] [address] [id number] [place] [address]- 0452 Feb, [facility] [address] [id number] [place] [address]- 5028 Feb, [facility] [place] [facility] [address] [id number] [place] [address]- 4500 Feb, [facility] [place] [facility] [address] [id number] [place] [address]- 4255 Feb, [facility] [place] [facility] [address] [id number] [place] [address]- 5250 Feb, [facility] [place] [facility] [address] [id number] [place] [address]- 6846 Feb, [facility] [place] [facility] [address] [id number] [place] [address]- 3113 Jan, [facility] [place] [facility] [address] [id number] [place] [address]- 3157 Jan, [facility] [place] [facility] [address] [id number] [place] [address]- 8364 Jan, [facility] [place] [facility] [address] [id number] [place] [address]- 7153 Jan, [facility] [place] [facility] [address] [id number] [place] [address]- 7276 Jan, [facility] [place] [facility] [address] [id number] [place] [address]- 5700 Jan, [facility] [place] [facility] [address] [id number] [place] [address]- 1703 Jan, [facility] [place] [facility] [address] [id number] [place] [address]- 4157 Jan, [facility] [place] [facility] [address] [id number] [place] [address]- 5480 Jan, [facility] [place] [facility] [address] [id number] [place] [address]- 4178 Jan, [facility] [place] [facility] [address] [id number] [address]- 7889 Jan, [facility] [place] [facility] [address] [id number] [address]- 1458 Jan, [facility] [place] [facility] [address] [id number] [address]- 7054 Jan, [facility] [place] [facility] [address] [id number] [place] [address]- 6773 Jan, [facility] [place] [facility] [address] [id number] [address]- 8734 Jan, [facility] [place] [facility] [address] [id number] [place] [address]- 9629 Dec, [facility] [place] [facility] [address] [id number] [place] [address]- 0009 Dec, 2013 [facility] [place] [facility] [address] [id number] [place] [address]- 5338 16 Dec, 2013 [facility] [place] [facility] [address] [id number] [place] [address]- 5957 16 Dec, 2013 [facility] [place] [facility] [address] [id number] [place] [address]- 9256 09 Dec, 2013 [facility] [place] [facility] [address] [id number] [place] [address]- 4768 09 Dec, 2013 [facility] [place] [facility] [address] [id number] [place] [address]- 4807 Dec, 2013 [facility] [place] [facility] [address] [id number] [place] [address]- 0880 07 Dec, 2013 [facility] [place] [facility] [address] [id number] [place] [address]- 5742 25 Sep, 2013 [facility] [place] [facility] [address] [id number] [place] [address]- 1588 25 Sep, 2013 [facility] [place] [facility] [address] [id number] [place] [address]- 8387 10 Sep, 2013 [facility] [place] [facility] [address] [facility] [id number] [place] [address]- 7065 10 Sep, 2013 [facility] [place] [facility] [address] [id number] [place] [address]- 7968 08 Sep, 2013 [facility] [place] [facility] [address] [id number] [address]- 2542 08 Sep, 2013 [facility] [place] [facility] [address] [id number] [place] [address]- 2543 08 Sep, 2013 [facility] [place] [facility] [address] [id number] [place] [address]- 254 08 Sep, 2013 [facility] [place] [facility] [address] [id number] [place] [address]- 6090 08 Sep, 2013 [facility] [place] [facility] [address] [id number] [place] [address]- 9168 08 Nov, 2013 [facility] [place] [facility] [address] [id number] [place] [address]- 3484 04 Nov, 2013 [facility] [place] [facility] [address] [id number] [place] [address]- 7025 04 Nov, 2013 [facility] [place] [facility] [address] [id number] [place] [address]- 0526 03 Nov, 2013 [facility] [place] [facility] [address] [id number] [place] [address]- 5958 02 Nov, 2013 [facility] [place] [facility] [address] [id number] [place] [address]- 0742 Nov, 2013 [facility] [place] [facility] [address] [id number] [place] [address]- 3061 Oct, [facility] [place] [facility] [address] [id number] [place] [address]- 4486 Oct, [facility] [place] [facility] [address] [id number] [place] [address]- 0398 Oct, [facility] [place] [facility] [address] [id number] [place] [address]- 8201 Oct, [facility] [place] [facility] [address] [id number] [place] [address]- 2853 Oct, [facility] [place] [facility] [address] [id number] [place] [address]- 5306 Oct, [facility] [place] [facility] [address] [id number] [place] [address]- 8963 Oct, [facility] [place] [facility] [address] [id number] [place] [address]- 1140 Oct, [facility] [place] [facility] [address] [id number] [place] [address]- 9700 Oct, [facility] [place] [facility] [address] [id number] [place] [address]- 0193 Oct, [facility] [place] [facility] [address] [id number] [place] [address]- 8038 Oct, [facility] [place] [facility] [address] [id number] [place] [address]- 6070 Oct, [facility] [place] [facility] [address] [id number] [place] [address]- 5024 Oct, [facility] [place] [facility] [address] [id number] [place] [address]- 5572 Oct, [facility] [place] [facility] [address] [id number] [place] [address]- 9094 Sep, [facility] [place] [facility] [address] [id number] [place] [address]- 9247 Sep, [facility] [place] [facility] [address] [id number] [place] [address]- 5074 Sep, [facility] [place] [facility] [address] [id number] [place] [address]- 8414 Sep, [facility] [place] [facility] [address] [id number] [place] [address]- 3594 Sep, [facility] [place] [facility] [address] [id number] [place] [address]- 3791 Sep, [facility] [place] [facility] [address] [id number] [place] [address]- 0387 Sep, [facility] [place] [facility] [address] [id number] [place] [address]- 1513 Sep, [facility] [place] [facility] [address] [id number] [place] [address]- 4898 Aug, [facility] [place] [facility] [address] [id number] [place] [address]- 4410 Aug, [facility] [place] [facility] [address] [id number] [place] [address]- 5295 Aug, [facility] [place] [facility] [address] [id number] [place] [address]- 4562 Aug, [facility] [address] [id number] [place] [address]- 1535 Aug, [facility] [place] [facility] [address] [id number] [place] [address]- 4439 Aug, [facility] [address] [id number] [place] [address]- 8162 Aug, [facility] [place] [facility] [address] [id number] [place] [address]- 2986 Aug, [facility] [address] [id number] [place] [address]- 6875 July, [facility] [address] [id number] [place] [address]- 6644 July, [facility] [address] [id number] [place] [address]- 4835 July, [facility] [address] [id number] [place] [address]- 6328 July, [facility] [place] [facility] [address] [id number] [place] [address]- 4225 July, [facility] [address] [id number] [place] [address]- 8932 July, [facility] [place] [facility] [address] [id number] [place] [address]- 0169 July, [facility] [place] [facility] [address] [id number] [place] [address]- 2561 July, [facility] [place] [facility] [address] [id number] [place] [address]- 5313 Jun, [facility] [place] [facility] [address] [id number] [place] [address]- 6693 Jun, [facility] [place] [facility] [address] [id number] [place] [address]- 6964 Jun, [facility] [place] [facility] [address] [id number] [place] [address]- 0689 Jun, [facility] [place] [facility] [address] [id number] [place] [address]- 7023 Jun, [facility] [place] [facility] [address] [id number] [place] 9910 Jun, [facility] [place] [facility] [address] [id number] [place] [address]- 6245 Jun, [facility] [place] [facility] [address] [id number] [place] [address]- 6412 Jun, [facility] [place] [facility] [address] [id number] [place] [address]- 6498 Jun, [facility] [place] [facility] [address] [id number] [place] [address]- 3233 Jun, [facility] [place] [facility] [address] [id number] [place] [address]- 6859 Jun, [facility] [place] [facility] [address] [id number] [place] [address]- 6870 Jun, [facility] [place] [facility] [address] [id number] [place] [address]- 0116 May, [facility] [place] [facility] [address] [id number] [place] [address]- 4861 May, [facility] [place] [facility] [address] [id number] [place] [address]- 0993 May, [facility] [place] [facility] [address] [id number] [place] [address]- 7988 May, [facility] [place] [facility] [address] [id number] [place] [address]- 2120 May, [facility] [place] [facility] [address] [id number] [place] 3911 May, [facility] [place] [facility] [address] [id number] [place] [address]- 4112 May, [facility] [place] [facility] [address] [id number] [place] [address]- 3293 May, [facility] [place] [facility] [address] [id number] [place] [address]- 2032 May, [facility] [place] [facility] [address] [facility] [id number] [place] [address]- 9805 May, [facility] [place] [facility] [address] [id number] [place] [address]- 0601 May, [facility] [place] [facility] [address] [id number] [place] [address]- 2517 May, [facility] [place] [facility] [address] [facility] [id number] [place] [address]- 4806 May, [facility] [place] [facility] [address] [facility] [id number] [place] [address]- 8432 May, [facility] [place] [facility] [address] [facility] [id number] [place] [address]- 8297 Apr, [facility] [place] [facility] [address] [facility] [id number] [place] [address]- 6399 Apr, [facility] [place] [facility] [address] [facility] [id number] [place] [address]- 6044 Apr, [facility] [place] [facility] [address] [facility] [id number] [place] [address]- 6311 Apr, [facility] [place] [facility] [address] [facility] [id number] [place] [address]- 1171 Apr, [facility] [place] [facility] [address] [id number] [place] [address]- 4022 Apr, [facility] [place] [facility] [address] [facility] [id number] [place] [address]- 2076 Mar, [facility] [place] [facility] [address] [id number] [place] [address]- 5130 Mar, [facility] [place] [facility] [address] [id number] [place] [address]- 7228 Mar, [facility] [address] [id number] [place] [address]- 6507 Mar, [facility] [place] [facility] [address] [id number] [place] [address]- 2432 Mar, [facility] [address] [id number] [place] [address]- 6222 Mar, [facility] [address] [id number] [place] [address]- 7941 Mar, [facility] [place] [facility] [address] [id number] [place] [address]- 2837 Mar, [facility] [address] [id number] [place] [address]- 4070 Mar, [facility] [address] [id number] [place] [address]- 9287 Mar, [facility] [place] [facility] [address] [id number] [place] [address]- 9114 Mar, [facility] [place] [facility] [address] [id number] [place] [address]- 8431 Mar, [facility] [place] [facility] [address] [id number] [place] [address]- 4860 Mar, [facility] [place] [facility] [address] [id number] [place] [address]- 5745 Mar, [facility] [place] [facility] [address] [id number] [place] [address] Feb, [facility] [place] [facility] [address] [id number] [place] [address] Feb, [facility] [place] [facility] [address] [id number] [place] [address] Feb, [facility] [place] [facility] [address] [id number] [place] [address] Feb, [facility] [place] [facility] [address] [id number] [place] [address] Feb, [facility] [place] [facility] [address] [id number] [place] [address] Feb, [facility] [place] [facility] [address] [id number] [place] [address] Feb, [facility] [place] [facility] [address] [id number] [place] [address] Feb, [facility] [place] [facility] [address] [id number] [place] [address] Feb, [facility] [place] [facility] [address] [id number] [place] [address] Feb, [facility] [place] [facility] [address] [id number] [place] [address] Feb, [facility] [place] [facility] [address] [id number] [place] [address] Feb, [facility] [place] [facility] [address] [id number] [place] [address] 119[address] Feb, [facility] [place] [facility] [address] [id number] [place] [address]- 6798 Feb, [facility] [place] [facility] [address] [id number] [address] Feb, [facility] [place] [facility] [address] [id number] [place] [address] Feb, [facility] [place] [facility] [address] [id number] [place] [address] Dec, [facility] [place] [facility] [address] [id number] [place] [address]- [address] 24 Dec, 2012 [facility] [place] [facility] [address] [id number] [place] [address]- [address] 16 Dec, 2012 [facility] [place] [facility] [address] [id number] [place] [address]- [address] 16 Dec, 2012 [facility] [address] [id number] [place] [address] 16 Dec, 2012 [facility] [place] [facility] [address] [id number] [place] [address]- 8416 16 Dec, 2012 [facility] [address] [id number] [place] [address]- [address]598 14 Dec, 2012 [facility] [place] [facility] [address] [id number] [place] [address]- [address] 14 Dec, 2012 [facility] [address] [id number] [place] [address]- [address] 10 Dec, 2012 [facility] [place] [facility] [address] [id number] [place] [address]- [address]75 10 Dec, 2012 [facility] [place] [facility] [address] [id number] [place] [address]- 3316 10 Dec, 2012 [facility] [address] [id number] [place] [address]- [address] 10 Dec, 2012 [facility] [place] [facility] [address] [id number] [place] [address]- [address] 03 Dec, 2012 [facility] [address] [id number] [place] [address]- [address] 25 Sep, 2012 [facility] [place] [facility] [address] [id number] [place] [address]- [address]43 20 Sep, 2012 [facility] [place] [facility] [address] [id number] [place] [address]- [address]40 18 Sep, 2012 [facility] [place] [facility] [address] [id number] [place] [address]- [address]144 16 Sep, 2012 [facility] [place] [facility] [address] [id number] [place] [address]- [address]45 12 Sep, 2012 [facility] [place] [facility] [address] [id number] [place] [address]659 Nov, [facility] [place] [facility] [address] [id number] [place] [address]- [address]2 05 Nov, 2012 [facility] [place] [facility] [address] [id number] [place] [address] Oct, [facility] [place] [facility] [address] [id number] [place] [address] Oct, [facility] [place] [facility] [address] [id number] [place] [address]- [address] Sep, [facility] [place] [facility] [address] [id number] [place] [address]- [address] Sep, [facility] [place] [facility] [address] [id number] [place] [address]- 8982 Sep, [facility] [place] [facility] [address] [id number] [place] [address]- [address] Sep, [facility] [place] [facility] [address] [id number] [place] [address]- 8688 Sep, [facility] [place] [facility] [address] [id number] [place] [address]- [address] Sep, [facility] [place] [facility] [address] [id number] [place] [address]- [address]047 Sep, [facility] [place] [facility] [address] [id number] [place] [address]- [address] Aug, [facility] [place] [facility] [address] [id number] [place] [address] Aug, [facility] [place] [facility] [address] [id number] [place] [address]- [address]150 16 Aug, 2012 [facility] [place] [facility] [address] [id number] [place] [address]- 287[address] Aug, [facility] [place] [facility] [address] [id number] [place] [address] Aug, [facility] [place] [facility] [address] [id number] [place] [address] 2546 Aug, [facility] [address] [id number] [place] [address]- [address] Aug, [facility] [address] [id number] [place] [address] 2546 Aug, [facility] [address] [id number] [place] [address] 2546 July, [facility] [address] [id number] [place] [address] 2546 July, [facility] [address] [id number] [place] [address] July, [facility] [address] [id number] [place] [id number] July, [facility] [address] [id number] [address] July, [facility] [address] [id number] [place] [address]- [address]141 Jun, [facility] [address] [id number] [place] [address]- [address]115 May, [facility] [address] [id number] [place] [address] May, [facility] [address] [id number] [place] [address] May, [facility] [address] [id number] [address] Apr, [facility] [address] [id number] [place] [address] 2546 Apr, [facility] [address] [id number] [place] [address] Apr, [facility] [address] [id number] [address] 2546 Mar, [facility] [address] [id number] [place] [address] 28 Mar, 2012 [facility] [address] [id number] [place] [address] 28 Mar, 2012 [facility] [place] [facility] [address] [id number] [place] [address] 6766 14 Mar, 2012 [facility] [place] [facility] [address] [id number] [place] [address]- 0444 10 Mar, 2012 [facility] [place] [facility] [address] [id number] [place] [address] 7561 Mar, [facility] [place] [facility] [address] [id number] [place] [address] 00[address] Mar, [facility] [address] [id number] [place] [address] Feb, [facility] [address] [id number] [place] [address] 9641 Feb, [facility] [address] [id number] [place] [address] 1706 Feb, [facility] [place] [facility] [address] [id number] [place] [address] 2068 Feb, [facility] [address] [id number] [place] [address] 6[address] 17 Feb, 2012 [facility] [place] [facility] [address] [id number] [place] [address] 17 Feb, 2012 [facility] [place] [facility] [address] [id number] [place] [address] 46[address] Feb, [facility] [place] [facility] [address] [id number] [place] [address] 2546 Feb, [facility] [place] [facility] [address] [id number] [place] [address]- 1544 Jan, [facility] [place] [facility] [address] [id number] [place] [address]- 2944 Jan, [facility] [place] [facility] [address] [id number] [place] [address]- 0327 Jan, [facility] [place] [facility] [address] [id number] [place] [address]- 1531 Jan, [facility] [place] [facility] [address] [facility] [id number] [place] [address]- 4205 Jan, [facility] [place] [facility] [address] [id number] [place] [address]- 7223 Jan, [facility] [place] [facility] [address] [id number] [place] [address]- 1414 Jan, [facility] [place] [facility] [address] [id number] [place] [address]- [address] Jan, [facility] [place] [facility] [address] [facility] [id number] [place] [address]- 7827 Jan, [facility] [place] [facility] [address] [id number] [place] [address] 59[address] Jan, [facility] [place] [facility] [address] [id number] [place] [address]- 48[address] Jan, [facility] [place] [facility] [address] [facility] [id number] [place] [address] 4[address] Jan, [facility] [place] [facility] [address] [id number] [place] [address]- 4427 Jan, [facility] [place] [facility] [address] [id number] [place] [address] Jan, [facility] [place] [facility] [address] [id number] [place] [address]- 0186 Jan, [facility] [place] [facility] [address] [facility] [id number] [place] [address] 5[address] Jan, [facility] [place] [facility] [address] [facility] [id number] [place] [address] Dec, [facility] [place] [facility] [address] [id number] [place] [address] 1390 17 Dec, 2011 [facility] [place] [facility] [address] [id number] [place] [address]- 6465 16 Dec, 2011 [facility] [place] [facility] [address] [id number] [place] [address]- 9826 16 Dec, 2011 [facility] [place] [facility] [address] [id number] [place] [address]- 9462 Dec, [facility] [place] [facility] [address] [id number] [place] [address]- 0295 Dec, [facility] [place] [facility] [address] [id number] [place] [address]- 4075 Dec, [facility] [place] [facility] [address] [id number] [place] [address]- 2026 Dec, [facility] [place] [facility] [address] [id number] [place] [address]- 8697 08 Dec, 2011 [facility] [place] [facility] [address] [id number] [place] [address]- 9653 05 Dec, 2011 [facility] [place] [facility] [address] [id number] [place] [address]- 2088 18 Nov, 2011 [facility] [place] [facility] [address] [id number] [place] [address]- 5352 13 Nov, 2011 [facility] [place] [facility] [address] [id number] [place] [address]- 8421 24 Oct, 2011 [facility] [place] [facility] [address] [id number] [place] [address]- 8778 22 Oct, 2011 [facility] [place] [facility] [address] [id number] [place] [address]- 4544 17 Oct, 2011 [facility] [place] [facility] [address] [id number] [place] [address]- 8184 16 Oct, 2011 [facility] [place] [facility] [address] [id number] [place] [address]- 6335 Oct, [facility] [place] [facility] [address] [id number] [place] [address]- 4757 Oct, [facility] [place] [facility] [address] [id number] [place] [address]- 0103 Oct, [facility] [place] [facility] [address] [id number] [place] [address]- 269[address] Sep, [facility] [place] [facility] [address] [id number] [place] [address]- 9821 Aug, [facility] [address] [id number] [place] [address]- 6612 Aug, [facility] [place] [facility] [address] [id number] [place] [address]- 5975 Aug, [facility] [address] [id number] [place] [address]- 8522 Aug, [facility] [address] [id number] [place] [address]- 8708 Aug, [facility] [place] [facility] [address] [id number] [place] [address]- 4966 July, [facility] [place] [facility] [address] [id number] [place] [address]- 1136 July, [facility] [place] [facility] [address] [id number] [place] [address]- 8761 July, [facility] [place] [facility] [address] [id number] [place] [address]- 1178 Jun, [facility] [place] [facility] [address] [id number] [place] [address]- 2172 Jun, [facility] [place] [facility] [address] [id number] [place] [address]- 4432 Jun, [facility] [place] [facility] [address] [id number] [place] [address]- 3392 Jun, [facility] [place] [facility] [address] [id number] [place] [address]- 8614 30 May, 2011 [facility] [place] [facility] [address] [id number] [place] [address]- 4586 30 May, 2011 [facility] [place] [facility] [address] [id number] [place] [address]- 4216 29 May, 2011 [facility] [place] [facility] [address] [id number] [place] [address]- 3596 28 May, 2011 [facility] [place] [facility] [address] [id number] [place] [address]- 1590 23 May, 2011 [facility] [place] [facility] [address] [id number] [place] [address]- 0425 22 May, 2011 [facility] [place] [facility] [address] [id number] [place] [address]- 3849 21 May, 2011 [facility] [place] [facility] [address] [id number] [place] [address]- 4307 19 May, 2011 [facility] [place] [facility] [address] [id number] [place] [address]- 3052 08 May, 2011 [facility] [place] [facility] [address] [id number] [place] [address]- 7688 05 May, 2011 [facility] [place] [facility] [address] [id number] [place] [address]- 1277 02 May, 2011 [facility] [place] [facility] [address] [id number] [place] [address]- 2229 May, [facility] [place] [facility] [address] [id number] [place] [address]- 2182 Mar, [facility] [place] [facility] [address] [id number] [place] [address]- 5484 Mar, [facility] [place] [facility] [address] [id number] [place] [address]- 3015 Feb, [facility] [place] [facility] [address] [id number] [place] [address]- 0236 Feb, [facility] [place] [facility] [address] [id number] [place] [address]- 6147 20 Feb, 2011 [facility] [address] [id number] [place] [address]- 4506 15 Feb, 2011 [facility] [place] [facility] [address] [id number] [place] [address]- 5906 13 Feb, 2011 [facility] [place] [facility] [address] [id number] [place] [address]- 2556 13 Feb, 2011 [facility] [place] [facility] [address] [id number] [place] [address]- 7800 13 Feb, 2011 [facility] [place] [facility] [address] [id number] [place] [address] 28 Jan, 2011 [facility] [place] [facility] [address] [id number] [place] [address]- 5131 23 Jan, 2011 [facility] [place] [facility] [address] [id number] [place] [address]- 5103 Jan, [facility] [place] [facility] [address] [id number] [place] [address]- 7399 Jan, [facility] [place] [facility] [address] [id number] [place] [address]- 5718 Jan, [facility] [place] [facility] [address] [id number] [place] [address]- 5719 Jan, [facility] [place] [facility] [address] [id number] [place] [address]- 3785 Dec, [facility] [place] [facility] [address] [id number] [place] [address]- 1415 Dec, [facility] [place] [facility] [address] [id number] [place] [address]- 2803 Dec, [facility] [place] [facility] [address] [id number] [place] [address]- 9572 July, [facility] [place] [facility] [address] [id number] [place] [address]- 4392 July, [facility] [place] [facility] [address] [id number] [place] [address]- 2208 08 Feb, 2010 [facility] [place] [facility] [address] [id number] [place] [address]- 4805 Jan, [facility] [place] [facility] [address] [id number] [place] [address]- 0610 Dec, [facility] [place] [facility] [address] [id number] [place] [address]- 4449 Dec, [facility] [place] [facility] [address] [id number] [place] [address]- 5428 15 Sep, 2009 [facility] [place] [facility] [address] [id number] [place] [address]- 2479 Aug, [facility] [place] [facility] [address] [id number] [place] [address]- 2944 Jun, [facility] [place] [facility] [address] [id number] [place] [address]- 0379 Jun, [facility] [place] [facility] [address] [id number] [place] [address]- 9593 Jan, [facility] [place] [facility] [address] [id number] [place] [address]- 7061 Jan, [facility] [place] [facility] [address] [id number] [place] [address]- 3289 Jan, [facility] [place] [facility] [address] [id number] [place] [address]- 1238 Jan, [facility] [place] [facility] [address] [id number] [place] [address]- 9360 29 Dec, 2008 [facility] [place] [facility] [address] [id number] [place] [address]- 7168 Dec, [facility] [place] [facility] [address] [id number] [place] [address]- 9219 15 Dec, 2008 [facility] [place] [facility] [address] [id number] [place] [address]- 2546 Nov, [facility] [address] [id number] [address]- 6665 July, [facility] [address] [id number] [address]- 2546 May, [facility] [address] [id number] [address]- 2546 Apr, [facility] [address] [id number] [address]- 6897 Feb, [facility] [address] [id number] [address]- 3815 Dec, IMMUNIZATIONS No Known Immunizations SOCIAL HISTORY Never Assessed REASON FOR VISIT Medication question PLAN OF CARE VITAL SIGNS MEDICATIONS Unknown [...]
--- OUTSIDE RECORDS SUMMARY | 2018-06-14 14:22 | XMS REPORT ---
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 Name Role Phone BEVERLY TAO Unavailable PROBLEMS Type Condition ICD9-CM Code YEL04-WI Code Onset Dates Condition Status SNOMED Code Problem Type 2 diabetes mellitus with complication E11.8 Active 658950354 Problem Acute bilateral low back pain with right-sided sciatica M54.41 Active 719171792 Problem Hyperlipidemia, unspecified E78.5 Active 66414939 Problem Hypertriglyceridemia E78.1 Active 319974119 Problem Obesity, unspecified 278.00 Active 956684178 Problem Other chronic pain G89.29 Active 77404159 Problem Eye exam normal Z01.00 Active 934287915 Problem Post laminectomy syndrome M96.1 Active 30111432 Problem long-term current use of insulin Z79.4 Active 436042189 Problem New daily persistent headache G44.52 Active 927074039 Problem Lumbago with sciatica, left side M54.42 Active 541736448 Problem Type 2 diabetes mellitus with hyperglycemia E11.65 Active 54881539 Problem Extreme poverty Z59.5 Active 51026372 Problem 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 Active 51185657 Problem Hyperlipidemia 272.4 Active 04562405 Problem Bipolar disorder, in partial remission, most recent episode manic F31.73 Active 85251003 Problem Irritable bowel syndrome with diarrhea K58.0 Active 980863864 Problem Lumbar radiculopathy M54.16 Active 625517109 Problem Non compliance with medical treatment Z91.19 Active 8975777 Problem Bipolar 1 disorder F31.9 Active 909564662 Problem Diabetes E11.9 Active 492475297 Problem 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 Active 872922182 ALLERGIES No Information ENCOUNTERS Encounter Location Date Diagnosis [facility] [address] [facility] [id number] [address] Mar, [facility] [id number] [place] [address] 83571- 0425 Dec, [facility] [id number] [place] [address] 98922- 5887 Nov, [facility] [id number] [place] [address] 78499- 1806 Nov, Hypertriglyceridemia E78.1 [facility] [id number] [place] [address] 48223- 5904 Nov, Bipolar 1 disorder F31.9 ; 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 and Extreme poverty Z59.5 [facility] [id number] [place] [address] 70760- 4437 18 Nov, 2017 Type 2 diabetes mellitus with complication E11.8 [facility] [id number] [place] [address] 97170- 6445 18 Nov, 2017 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 and Bipolar disorder, in partial remission, most recent episode manic F31.73 [facility] [id number] [place] [address] 55273- 8885 12 Nov, 2017 Type 2 diabetes mellitus with complication E11.8 [facility] [address] [place] [address] 48847- 0121 11 Nov, 2017 Bipolar 1 disorder F31.9 ; 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 and Extreme poverty Z59.5 [facility] [id number] [place] [address] 36182- 2573 10 Nov, 2017 Type 2 diabetes mellitus with complication E11.8 ; Pain of left upper arm M79.622 ; Pain in right upper arm M79.621 ; Hyperglycemia R73.9 ; Lumbago with sciatica, left side M54.42 and Other chronic pain G89.29 [facility] [address] [place] [address] 24885- 4256 Oct, Bipolar 1 disorder F31.9 ; 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 and Extreme poverty Z59.5 [facility] [address] [place] [address] 17419- 5810 Oct, Type 2 diabetes mellitus with hyperglycemia E11.65 ; long-term current use of insulin Z79.4 and Other acute gastritis without hemorrhage K29.00 [facility] [id number] [place] [address] 15960- 3022 Oct, Bipolar 1 disorder F31.9 ; 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 and Extreme poverty Z59.5 [facility] [id number] [place] [address] 15083- 5835 Sep, Diarrhea, unspecified R19.7 and Vomiting, unspecified R11.10 [facility] [id number] [place] [address] 77984- 7097 Aug, Type 2 diabetes mellitus with complication E11.8 [place] [id number] [place] [address] 56127- 9922 Aug, [facility] [id number] [place] [address] 28275- 8779 Aug, Bipolar 1 disorder F31.9 ; 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 and Extreme poverty Z59.5 [facility] [id number] [place] [address] 74967- 2494 Aug, 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 and Bipolar disorder, in partial remission, most recent episode manic F31.73 [facility] [id number] [place] [address] 84125- 8873 Aug, Bipolar 1 disorder F31.9 [facility] [id number] [place] [address] 73545- 1431 Aug, [facility] [id number] [place] [address] 09047- 8616 Aug, [facility] [id number] [place] [address] 62431- 2343 Aug, Bipolar 1 disorder F31.9 ; 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 and Extreme poverty Z59.5 [facility] [address] [place] [address] 23447- 8979 July, Type 2 diabetes mellitus with complication E11.8 [facility] [id number] [place] [address] 6753 July, Bipolar 1 disorder F31.9 ; 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 and Extreme poverty Z59.5 [facility] [id number] [place] [address] 40721- 3402 Jun, Bipolar 1 disorder F31.9 ; 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 and Extreme poverty Z59.5 [facility] [id number] [place] [address] 35233- 2869 Jun, Bipolar 1 disorder F31.9 ; 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 and Extreme poverty Z59.5 [facility] [id number] [place] [address] 11964- 4384 Jun, Bipolar 1 disorder F31.9 ; 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 and Extreme poverty Z59.5 [facility] [address] [place] [address] 88346- 1672 May, Urinary tract infection without hematuria, site unspecified N39.0 [facility] [id number] [place] [address] 18407- 6889 May, Bipolar 1 disorder F31.9 ; 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 and Extreme poverty Z59.5 [facility] [address] [place] [address] 05579- 5630 Apr, Diabetes E11.9 and Breast cancer screening Z12.31 [facility] [id number] [place] [address] 19967- 6883 Apr, Bipolar 1 disorder F31.9 and 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 [facility] [address] [place] [address] 72683- 8468 Mar, Bipolar 1 disorder F31.9 ; 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 and Extreme poverty Z59.5 [facility] [id number] [place] [address] 15734- 7414 Mar, New daily persistent headache G44.52 ; Leg pain 729.5 and History of carpal tunnel release Z98.890 [facility] [id number] [place] [address] 60787- 0671 Mar, Hyperlipidemia, unspecified E78.5 [facility] [address] 03562- 9313 Mar, Bipolar 1 disorder F31.9 ; 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9 and 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 [facility] [id number] [place] [address] 15297- 4934 Jan, Bipolar 1 disorder F31.9 ; 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 and Extreme poverty Z59.5 [facility] [id number] [place] [address] 48022- 1848 Dec, Diabetes E11.9 [place] [address] [place]- 2546 Dec, Diabetes E11.9 and Encounter for immunization Z23 [facility] [address] [place] [address] 01430- 1774 Dec, Bipolar 1 disorder F31.9 ; 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 and Extreme poverty Z59.5 [facility] [id number] [place] [address] 81101- 6489 Dec, Back pain M54.9 [facility] [id number] [place] [address] 28567- 1414 Nov, [facility] [id number] [place] [address] 89073- 3764 Nov, Bipolar 1 disorder F31.9 ; 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 and Extreme poverty Z59.5 [facility] [id number] [place] [address] 20427- 3386 Nov, Bipolar 1 disorder F31.9 ; 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 and Extreme poverty Z59.5 [facility] [address] [place] [address] 07300- 4858 Oct, 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 and Bipolar 1 disorder F31.9 [facility] [address] [place] [address] 94518- 4222 Oct, Bipolar 1 disorder F31.9 ; 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 and Extreme poverty Z59.5 [facility] [address] [place] [address] 63558- 4909 Oct, Back pain M54.9 [facility] [address] [place] [address] 51891- 1699 Oct, 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 and Type 2 diabetes mellitus with complication E11.8 [facility] [address] [address]- 5245 Sep, Bipolar 1 disorder F31.9 ; 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 and Extreme poverty Z59.5 [facility] [address] [address]- 0410 Sep, 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 and Bipolar 1 disorder F31.9 [facility] [id number] [place] [address] 95560- 3126 Sep, Bipolar 1 disorder F31.9 ; 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 and Extreme poverty Z59.5 [facility] [id number] [place] [address] 59617- 9711 Aug, Diabetes E11.9 ; Hyperlipidemia, unspecified E78.5 and Lumbar radiculopathy M54.16 [facility] [id number] [place] [address] 08500- 1270 Aug, Bipolar 1 disorder F31.9 ; 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 and Extreme poverty Z59.5 [facility] [id number] [place] [address] 16675- 0473 Aug, [facility] [id number] [place] [address] 48383- 9467 Aug, [facility] [id number] [place] [address] 75652- 7107 Aug, [facility] [id number] [place] [address] 08098- 0587 July, [facility] [id number] [place] [address] 97727- 6854 July, Acute bilateral low back pain with right-sided sciatica M54.41 [facility] [id number] [place] [address] 17275- 5335 July, Bipolar 1 disorder F31.9 ; 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 and Extreme poverty Z59.5 [facility] [address] [place] [address] 13757- 1240 July, Back pain M54.9 and Diabetes E11.9 [facility] [id number] [place] [address] 39904- 9442 Jun, Bipolar 1 disorder F31.9 ; 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 and Extreme poverty Z59.5 [facility] [id number] [place] [address] 0739 Jun, Bipolar 1 disorder F31.9 ; 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 and Extreme poverty Z59.5 [place] [facility] [address] 74898- 4835 May, Visit for pelvic exam Z01.419 ; Acute vaginitis N76.0 and Diabetes E11.9 [facility] [address] 76986- 6311 May, Bipolar 1 disorder F31.9 ; 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 and Extreme poverty Z59.5 [place] [address] 92790- 1593 May, [facility] [address] 99278- 9994 May, [facility] [address] 08487- 8726 May, Bipolar 1 disorder F31.9 ; 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 and Extreme poverty Z59.5 [facility] [id number] [place] [address] 58581- 5134 May, Hyperlipidemia, unspecified E78.5 [facility] [id number] [place] [address] 03030- 8276 Apr, Breast cancer screening Z12.39 [facility] [id number] [place] [address] 48752- 2035 Mar, [facility] [address] 94984- 2610 Mar, Bipolar disorder, current episode mixed, unspecified F31.60 [facility] [address] 55458- 4227 Mar, Bipolar 1 disorder F31.9 ; 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 and Extreme poverty Z59.5 [facility] [address] 94614- 6945 Feb, Acute nasopharyngitis J00 [place] [address] 38696- 1247 Feb, Dental examination Z01.20 [facility] [address] 07804- 3380 Feb, Dental cavities K02.9 and Chronic periodontitis, unspecified K05.30 [facility] [address] 71652- 4765 Feb, Low back pain M54.5 and Extreme poverty Z59.5 [place] [facility] [address] 00584- 4500 Feb, [facility] [address] 75866- 6760 Feb, Routine gynecological examination V72.31 ; Breast cancer screening Z12.39 and Herpes simplex type 1 infection B00.9 [place] [facility] [address] 85326- 4599 Feb, Diabetes E11.9 [facility] [address] 17911- 9235 Feb, Encounter for dental examination and cleaning without abnormal findings Z01.20 [place] [facility] [address] 15319- 4426 Jan, Hyperlipidemia, unspecified E78.5 [place] [address] 10886- 7342 Jan, Bipolar 1 disorder F31.9 ; 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 and Extreme poverty Z59.5 [place] [address] 53970- 4524 Jan, Diabetes E11.9 [facility] [id number] [place] [address] 90723- 1068 17 Jan, 2016 Diabetes E11.9 [place] [facility] [address] 03016- 4649 14 Dec, 2015 Bipolar 1 disorder F31.9 ; 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 and Extreme poverty Z59.5 [place] [facility] [address] 17905- 3197 13 Dec, 2015 Bipolar disorder, current episode mixed, unspecified F31.60 and 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 [facility] [id number] [place] [address] 11447- 2300 16 Nov, 2015 Bipolar 1 disorder F31.9 ; 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 ; Extreme poverty Z59.5 and Non compliance with medical treatment Z91.19 [facility] [id number] [place] [address] 70237- 1305 Oct, [place] [facility] [address] 67991- 2196 Oct, Dental caries K02.9 [place] [address] 57170- 8701 Oct, Low back pain M54.5 and Other chronic pain G89.29 [facility] [id number] [place] [address] 16132- 6905 Oct, Bipolar 1 disorder F31.9 ; 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 ; Extreme poverty Z59.5 and Non compliance with medical treatment Z91.19 [facility] [id number] [place] [address] 47975- 6439 Oct, [place] [address] 32176- 7061 Oct, [place] [id number] [place] [address] 84781- 3704 Oct, Dental examination Z01.20 [place] [address] [place] [address]- 2600 Oct, Bipolar 1 disorder F31.9 ; 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 ; Extreme poverty Z59.5 and Non compliance with medical treatment Z91.19 [place] [address] [place] [address] 82878- 3146 Oct, [facility] [id number] [place] [address] 94323- 8478 Sep, Type 2 diabetes mellitus with complication E11.8 [facility] [id number] [place] [address] 40467- 8843 Sep, Bipolar disorder, current episode mixed, unspecified F31.60 [facility] [id number] [place] [address] 75700- 1985 Sep, Bipolar disorder, current episode mixed, unspecified F31.60 [facility] [id number] [place] [address] 34853- 9108 Sep, Bipolar disorder, in partial remission, most recent episode manic F31.73 ; 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 ; Extreme poverty Z59.5 and Non compliance with medical treatment Z91.19 [place] [place] [address] [place] [address] 22528- 2004 Aug, Bipolar disorder, in partial remission, most recent episode manic F31.73 ; 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 ; Extreme poverty Z59.5 and Non compliance with medical treatment Z91.19 [place] [address] [place] [address] 85903- 6002 Aug, Bipolar disorder, in partial remission, most recent episode manic F31.73 ; 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 ; Extreme poverty Z59.5 and Non compliance with medical treatment Z91.19 [place] [address] [place] [address] 35325- 2122 Aug, [facility] [id number] [place] [address] 68972- 0128 July, Bipolar disorder, in partial remission, most recent episode manic F31.73 ; 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 ; Extreme poverty Z59.5 and Non compliance with medical treatment Z91.19 [place] [address] [place] [address] 74962- 9515 July, Bipolar disorder, current episode mixed, unspecified F31.60 [facility] [id number] [place] [address] 60221- 5928 July, Bipolar disorder, in partial remission, most recent episode manic F31.73 ; 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 ; Extreme poverty Z59.5 and Non compliance with medical treatment Z91.19 [place] [id number] [place] [address] 91970- 6960 July, long-term current 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 Z79.891 and Chronic pain G89.29 [place] [id number] [place] [address] 72381- 5806 Jun, 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 and Bipolar 1 disorder F31.9 [place] [facility] [id number] [place] [address] 76893- 1364 Jun, [facility] [id number] [place] [address] 43346- 8975 Jun, [facility] [id number] [place] [address] 45958- 1588 Jun, [facility] [id number] [place] [address] 25766- 1747 Jun, Bipolar disorder, in partial remission, most recent episode manic F31.73 ; 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 and Non compliance with medical treatment Z91.19 [place] [id number] [place] [address] 44311- 9975 May, Bipolar disorder, in partial remission, most recent episode manic F31.73 ; 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 and Non compliance with medical treatment Z91.19 [place] [facility] [id number] [place] [address] 42931- 4950 May, Bipolar disorder, in partial remission, most recent episode manic F31.73 [place] [address] 36259- 7275 May, Diabetes E11.9 and Chronic pain G89.29 [place] [address] 24851- 6857 May, [place] [address] 16577- 1716 May, Bipolar disorder, in partial remission, most recent episode manic F31.73 ; Non compliance with medical treatment Z91.19 and 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 [facility] [id number] [place] [address] 51336- 5685 May, Type 2 diabetes mellitus with complication E11.8 and Back pain M54.[address] 36263- 4537 May, Bipolar disorder, in partial remission, most recent episode manic F31.73 and 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 [place] [address] 75095- 7638 Apr, [facility] [id number] [place] [address] 49914- 5297 Apr, [facility] [id number] [place] [address] 31848- 7861 Apr, [address] 20289- 0762 Apr, Diabetes E11.9 ; Irritable bowel syndrome with diarrhea K58.0 and Lumbar radiculopathy M54.16 [facility] [id number] [place] [address] 40059- 4977 Apr, Breast screening Z12.[address] 88959- 7589 Apr, Bipolar disorder, in partial remission, most recent episode manic F31.73 ; Non compliance with medical treatment Z91.19 and 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 [place] [place] [id number] [place] [address] 67512- 1556 Mar, Edema, unspecified type R60.9 and Type 2 diabetes mellitus with complication E11.8 [place] [address]27- 3219 Mar, Bipolar disorder, in partial remission, most recent episode manic F31.73 ; Non compliance with medical treatment Z91.19 ; 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 and Extreme poverty Z59.5 [place] [id number] [place] [address] 40035- 2467 Mar, Bipolar disorder, current episode mixed, unspecified F31.60 ; 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 ; Extreme poverty Z59.5 and Generalized anxiety disorder F41.1 [place] [address] 45634- 9314 Mar, Bipolar disorder, in partial remission, most recent episode manic F31.73 ; 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 and Extreme poverty Z59.5 [place] [id number] [place] [address] 92526- 2379 Feb, Bipolar disorder, in partial remission, most recent episode manic F31.73 ; 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 and Extreme poverty Z59.5 [place] [id number] [place] [address] 80274- 5590 Feb, Bipolar disorder, in partial remission, most recent episode manic F31.73 ; 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 and Extreme poverty Z59.5 [place] [id number] [place] [address] 73925- 4854 Feb, [place] [id number] [place] [address] 63009- 3369 Jan, Type 2 diabetes mellitus with complication E11.8 and Petechiae R23.3 [place] [id number] [place] [address] 89150- 8114 Jan, Type 2 diabetes mellitus with complication E11.8 ; Edema, unspecified R60.9 ; Petechiae R23.3 and Diabetes E11.9 [place] [address] [place] [address] 08892- 3952 Jan, Bipolar disorder, in partial remission, most recent episode manic F31.73 ; 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 and Extreme poverty Z59.5 [place] [id number] [place] [address] 45451- 4205 Jan, Bipolar disorder, in partial remission, most recent episode manic F31.73 ; 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 and Extreme poverty Z59.5 [place] [id number] [place] [address] 37051- 7597 Dec, Bipolar disorder, in partial remission, most recent episode manic F31.73 [place] [id number] [place] [address] 75247- 8327 Dec, Edema, due to unspecified malnutrition type, unspecified edema R60.9 and Essential hypertension I10 [facility] [id number] [place] [address] 68171- 7797 Dec, Bipolar disorder, in partial remission, most recent episode manic F31.73 [place] [id number] [place] [address] 09735- 2846 Nov, Bipolar I disorder, most recent episode (or current) mixed, unspecified 296.[address] [place] [id number] [place] [address]- 4803 24 Nov, 2014 Stress incontinence, female 625.6 ; Back pain 724.5 and Leg pain 729.5 [place] [id number] [place] [address] 84733- 2056 18 Nov, 2014 Generalized anxiety disorder 300.02 and Bipolar II disorder 296.89 [place] [id number] [id number] [address] Nov, Bipolar I disorder, most recent episode (or current) mixed, unspecified 296.60 [facility] [address] [address] Oct, [facility] [address] [address] 1364 Oct, [facility] [address] [id number] [address] 4313 Oct, [facility] [address] [address] 2898 Oct, Bipolar I disorder, most recent episode (or current) mixed, unspecified 296.60 [facility] [address] [address]- 2897 Sep, Diabetes 250.00 [facility] [id number] [address]- 5275 Sep, Bipolar I disorder, most recent episode (or current) mixed, unspecified 296.60 [facility] [address]005[address] [address]- 9438 Sep, [facility] [address] [address]- 2885 Sep, [facility] [address] [address]- 2505 Sep, Bipolar I disorder, most recent episode (or current) mixed, unspecified 296.60 [facility] [id number] [address]- 1075 Sep, Bipolar I disorder, most recent episode (or current) mixed, unspecified 296.60 [facility] [id number] [id number] 9950 Sep, [facility] [address] [id number] [address] 9363 Sep, Anxiety 300.00 ; Diabetes 250.00 and Hyperlipidemia 272.4 [facility] [address]005[address] [address]- 6447 Aug, [facility] [id number] [place] [address] 374639- 3608 Aug, [facility] [address] [address]- 8625 Aug, [facility] [id number] [place] [address] 046472- 3644 Aug, Bipolar I disorder, most recent episode (or current) mixed, unspecified 296.60 [facility] [id number] [place] [address] 871472- 7701 Aug, Generalized anxiety disorder 300.02 and Bipolar II disorder 296.89 [facility] [id number] [place] [address] 09453- 8144 July, Bipolar I disorder, most recent episode (or current) mixed, unspecified 296.60 [facility] [address] [address]- 5649 July, Cough 786.2 [facility] [id number] [place] [address] 11046- 5675 July, Bipolar I disorder, most recent episode (or current) mixed, unspecified 296.60 [facility] [address] [address]- 3452 Jun, Diabetes 250.00 [facility] [address]005[address] [address]- 5926 Jun, [facility] [address] [address]- 3127 Jun, [facility] [address] [address] 7407 May, [facility] [address] [address] 9234 May, [facility] [place] [facility] [address] [id number] [place] [address]- 5666 May, [facility] [place] [facility] [address] [id number] [place] [address]- 2398 May, [facility] [place] [facility] [address] [id number] [place] [address]- 3653 May, [facility] [place] [facility] [address] [id number] [place] [address]- 5347 May, [facility] [place] [facility] [address] [id number] [place] [address]- 8584 Apr, [facility] [place] [facility] [address] [id number] [place] [address]- 4928 Apr, [facility] [place] [facility] [address] [id number] [place] [address]- 4993 Apr, [facility] [place] [facility] [address] [id number] [place] [address]- 4167 Apr, [facility] [place] [facility] [address] [id number] [place] [address]- 1658 Apr, [facility] [place] [facility] [address] [id number] [place] [address]- 7860 Apr, [facility] [place] [facility] [address] [id number] [place] [address]- 5801 Apr, [facility] [place] [facility] [address] [id number] [place] [address]- 7848 Apr, [facility] [place] [facility] [address] [id number] [place] [address]- 1810 Mar, [facility] [place] [facility] [address] [id number] [place] [address]- 4767 Mar, [facility] [place] [facility] [address] [facility] [id number] [place] [address]- 5581 Mar, [facility] [place] [facility] [address] [id number] [place] [address]- 5238 Mar, [facility] [address] [id number] [place] [address]- 1425 Mar, [facility] [place] [facility] [address] [id number] [place] [address]- 8961 Mar, [facility] [place] [facility] [address] [id number] [place] [address]- 1279 Mar, [facility] [place] [facility] [address] [id number] [place] [address]- 2081 Mar, [facility] [address] [id number] [place] 1372 Feb, [facility] [address] [id number] [place] [address]- 8388 Feb, [facility] [address] [id number] [place] [address]- 0997 Feb, [facility] [address] [id number] [place] [address]- 4784 Feb, [facility] [place] [facility] [address] [id number] [place] [address]- 7977 Feb, [facility] [address] [id number] [place] [address]- 5412 Feb, [facility] [place] [facility] [address] [id number] [place] [address]- 7432 Feb, [facility] [place] [facility] [address] [id number] [place] [address]- 6958 Feb, [facility] [place] [facility] [address] [id number] [place] [address]- 7897 Feb, [facility] [place] [facility] [address] [id number] [place] [address]- 2446 Feb, [facility] [place] [facility] [address] [id number] [place] [address]- 8827 Jan, [facility] [place] [facility] [address] [id number] [place] [address]- 1973 Jan, [facility] [place] [facility] [address] [id number] [place] [address]- 7430 Jan, [facility] [place] [facility] [address] [id number] [place] [address]- 4909 Jan, [facility] [place] [facility] [address] [id number] [place] [address]- 5366 Jan, [facility] [place] [facility] [address] [id number] [place] [address]- 7693 Jan, [facility] [place] [facility] [address] [id number] [place] [address]- 8096 Jan, [facility] [place] [facility] [address] [id number] [place] [address]- 3587 Jan, [facility] [place] [facility] [address] [id number] [place] [address]- 8500 Jan, [facility] [place] [facility] [address] [id number] [place] [address]- 2680 Jan, [facility] [place] [facility] [address] [id number] [address]- 0211 Jan, [facility] [place] [facility] [address] [id number] [place] [address]- 3578 Jan, [facility] [place] [facility] [address] [id number] [place] [address]- 9100 Jan, [facility] [place] [facility] [address] [id number] [place] [address]- 6862 Jan, [facility] [place] [facility] [address] [id number] [place] [address]- 2032 Jan, [facility] [place] [facility] [address] [id number] [place] [address]- 4619 Dec, [facility] [place] [facility] [address] [id number] [place] [address]- 7729 Dec, 2013 [facility] [place] [facility] [address] [id number] [place] [address]- 9392 16 Dec, 2013 [facility] [place] [facility] [address] [id number] [place] [address]- 4151 16 Dec, 2013 [facility] [place] [facility] [address] [id number] [place] [address]- 8538 09 Dec, 2013 [facility] [place] [facility] [address] [id number] [place] [address]- 8357 09 Dec, 2013 [facility] [place] [facility] [address] [id number] [place] [address]- 3081 Dec, 2013 [facility] [place] [facility] [address] [id number] [place] [address]- 6142 07 Dec, 2013 [facility] [place] [facility] [address] [id number] [place] [address]- 1755 25 Sep, 2013 [facility] [place] [facility] [address] [id number] [place] [address]- 5406 25 Sep, 2013 [facility] [place] [facility] [address] [id number] [place] [address]- 2650 10 Sep, 2013 [facility] [place] [facility] [address] [facility] [id number] [place] [address]- 6503 10 Sep, 2013 [facility] [place] [facility] [address] [id number] [place] [address]- 3411 08 Sep, 2013 [facility] [place] [facility] [address] [id number] [address]- 254 08 Sep, 2013 [facility] [place] [facility] [address] [id number] [place] [address]- 2541 08 Sep, 2013 [facility] [place] [facility] [address] [id number] [place] [address]- 254 08 Sep, 2013 [facility] [place] [facility] [address] [id number] [place] [address]- 1256 08 Sep, 2013 [facility] [place] [facility] [address] [id number] [place] [address]- 6447 08 Nov, 2013 [facility] [place] [facility] [address] [id number] [place] [address]- 5761 04 Nov, 2013 [facility] [place] [facility] [address] [id number] [place] [address]- 7824 04 Nov, 2013 [facility] [place] [facility] [address] [id number] [place] [address]- 4422 03 Nov, 2013 [facility] [place] [facility] [address] [id number] [place] [address]- 4775 02 Nov, 2013 [facility] [place] [facility] [address] [id number] [place] [address]- 3448 Nov, 2013 [facility] [place] [facility] [address] [id number] [place] [address]- 2437 Oct, [facility] [place] [facility] [address] [id number] [place] [address]- 8322 Oct, [facility] [place] [facility] [address] [id number] [place] [address]- 1516 Oct, [facility] [place] [facility] [address] [id number] [place] [address]- 5628 Oct, [facility] [place] [facility] [address] [id number] [place] [address]- 7173 Oct, [facility] [place] [facility] [address] [id number] [place] [address]- 8364 Oct, [facility] [place] [facility] [address] [id number] [place] [address]- 5338 Oct, [facility] [place] [facility] [address] [id number] [place] [address]- 2135 Oct, [facility] [place] [facility] [address] [id number] [place] [address]- 9993 Oct, [facility] [place] [facility] [address] [id number] [place] [address]- 5761 Oct, [facility] [place] [facility] [address] [id number] [place] [address]- 3542 Oct, [facility] [place] [facility] [address] [id number] [place] [address]- 5912 Oct, [facility] [place] [facility] [address] [id number] [place] [address]- 0368 Oct, [facility] [place] [facility] [address] [id number] [place] [address]- 0947 Oct, [facility] [place] [facility] [address] [id number] [place] [address]- 2928 Sep, [facility] [place] [facility] [address] [id number] [place] [address]- 3572 Sep, [facility] [place] [facility] [address] [id number] [place] [address]- 7899 Sep, [facility] [place] [facility] [address] [id number] [place] [address]- 1445 Sep, [facility] [place] [facility] [address] [id number] [place] [address]- 6379 Sep, [facility] [place] [facility] [address] [id number] [place] [address]- 3753 Sep, [facility] [place] [facility] [address] [id number] [place] [address]- 9371 Sep, [facility] [place] [facility] [address] [id number] [place] [address]- 6078 Sep, [facility] [place] [facility] [address] [id number] [place] [address]- 4173 Aug, [facility] [place] [facility] [address] [id number] [place] [address]- 0544 Aug, [facility] [place] [facility] [address] [id number] [place] [address]- 3021 Aug, [facility] [place] [facility] [address] [id number] [place] [address]- 5736 Aug, [facility] [address] [id number] [place] [address]- 9495 Aug, [facility] [place] [facility] [address] [id number] [place] [address]- 5679 Aug, [facility] [place] [address] [id number] [place] [address]- 5449 Aug, [facility] [place] [facility] [address] [id number] [place] [address]- 6024 Aug, [facility] [place] [facility] [address] [id number] [place] [address]- 8480 July, [facility] [place] [facility] [address] [id number] [place] [address]- 1884 July, [facility] [address] [id number] [place] [address]- 1098 July, [facility] [address] [id number] [place] [address]- 4675 July, [facility] [place] [facility] [address] [id number] [place] [address]- 4566 July, [facility] [address] [id number] [place] [address]- 5708 July, [facility] [place] [facility] [address] [id number] [place] [address]- 9616 July, [facility] [place] [facility] [address] [id number] [place] [address]- 4141 July, [facility] [place] [facility] [address] [id number] [place] [address]- 7379 Jun, [facility] [place] [facility] [address] [id number] [place] [address]- 9191 Jun, [facility] [place] [facility] [address] [id number] [place] [address]- 1374 Jun, [facility] [place] [facility] [address] [id number] [place] [address]- 9915 Jun, [facility] [place] [facility] [address] [id number] [place] [address]- 0707 Jun, [facility] [place] [facility] [address] [id number] [place] 7000 Jun, [facility] [place] [facility] [address] [id number] [place] [address]- 5653 Jun, [facility] [place] [facility] [address] [id number] [place] [address]- 9616 Jun, [facility] [place] [facility] [address] [id number] [place] [address]- 9996 Jun, [facility] [place] [facility] [address] [id number] [place] [address]- 1440 Jun, [facility] [place] [facility] [address] [id number] [place] [address]- 1529 Jun, [facility] [place] [facility] [address] [id number] [place] [address]- 5858 Jun, [facility] [place] [facility] [address] [id number] [place] [address]- 3040 May, [facility] [place] [facility] [address] [id number] [place] [address]- 6157 May, [facility] [place] [facility] [address] [id number] [place] [address]- 4263 May, [facility] [place] [facility] [address] [id number] [place] [address]- 0288 May, [facility] [place] [facility] [address] [id number] [place] [address]- 5450 May, [facility] [place] [facility] [address] [id number] [place] 2388 May, [facility] [place] [facility] [address] [id number] [place] [address]- 4759 May, [facility] [place] [facility] [address] [id number] [place] [address]- 9753 May, [facility] [place] [facility] [address] [id number] [place] [address]- 5766 May, [facility] [place] [facility] [address] [facility] [id number] [place] [address]- 3797 May, [facility] [place] [facility] [address] [id number] [place] [address]- 7114 May, [facility] [place] [facility] [address] [id number] [place] [address]- 2083 May, [facility] [place] [facility] [address] [facility] [id number] [place] [address]- 9680 May, [facility] [place] [facility] [address] [facility] [id number] [place] [address]- 4343 May, [facility] [place] [facility] [address] [facility] [id number] [place] [address]- 3906 Apr, [facility] [place] [facility] [address] [facility] [id number] [place] [address]- 2182 Apr, [facility] [place] [facility] [address] [facility] [id number] [place] [address]- 8255 Apr, [facility] [place] [facility] [address] [facility] [id number] [place] [address]- 0820 Apr, [facility] [place] [facility] [address] [facility] [id number] [place] [address]- 5791 Apr, [facility] [place] [facility] [address] [id number] [place] [address]- 0656 Apr, [facility] [place] [facility] [address] [facility] [id number] [place] [address]- 4450 Mar, [facility] [place] [facility] [address] [id number] [place] [address]- 2446 Mar, [facility] [place] [facility] [address] [id number] [place] [address]- 8345 Mar, [facility] [address] [id number] [place] [address]- 2466 Mar, [facility] [place] [facility] [address] [id number] [place] [address]- 5631 Mar, [facility] [place] [address] [id number] [place] [address]- 6194 Mar, [facility] [place] [address] [id number] [place] [address]- 4900 Mar, [facility] [place] [facility] [address] [id number] [place] [address]- 1426 Mar, [facility] [place] [facility] [address] [id number] [place] [address]- 5195 Mar, [facility] [place] [facility] [address] [id number] [place] [address]- 1469 Mar, [facility] [place] [facility] [address] [id number] [place] [address]- 7053 Mar, [facility] [place] [facility] [address] [id number] [place] [address]- 7390 Mar, [facility] [place] [facility] [address] [id number] [place] [address]- 6658 Mar, [facility] [place] [facility] [address] [id number] [place] [address]- 8945 Mar, [facility] [place] [facility] [address] [id number] [place] [address]- 7351 Feb, [facility] [place] [facility] [address] [id number] [place] [address]- 2611 Feb, [facility] [place] [facility] [address] [id number] [place] [address] Feb, [facility] [place] [facility] [address] [id number] [place] [address] Feb, [facility] [place] [facility] [address] [id number] [place] [address] Feb, [facility] [place] [facility] [address] [id number] [place] [address]684 Feb, [facility] [place] [facility] [address] [id number] [place] [address] Feb, [facility] [place] [facility] [address] [id number] [place] [address]- [address] Feb, [facility] [place] [facility] [address] [id number] [place] [address] Feb, [facility] [place] [facility] [address] [id number] [place] [address] Feb, [facility] [place] [facility] [address] [id number] [place] [address] Feb, [facility] [place] [facility] [address] [id number] [place] [address] Feb, [facility] [place] [facility] [address] [id number] [place] [address] 29[address] Feb, [facility] [place] [facility] [address] [id number] [place] [address] Feb, [facility] [place] [facility] [address] [id number] [place] [address] Feb, [facility] [place] [facility] [address] [id number] [place] [address] Feb, [facility] [place] [facility] [address] [id number] [place] [address] Dec, [facility] [place] [facility] [address] [id number] [place] [address] 24 Dec, 2012 [facility] [place] [facility] [address] [id number] [place] [address] 16 Dec, 2012 [facility] [place] [facility] [address] [id number] [place] [address]7 16 Dec, 2012 [facility] [place] [facility] [address] [id number] [place] [address] 16 Dec, 2012 [facility] [place] [facility] [address] [id number] [place] [address]- 4567 16 Dec, 2012 [facility] [place] [address] [id number] [place] [address] 14 Dec, 2012 [facility] [place] [facility] [address] [id number] [place] [address]- [address] 14 Dec, 2012 [facility] [place] [facility] [address] [id number] [place] [address]- [address] 10 Dec, 2012 [facility] [place] [facility] [address] [id number] [place] [address]- [address]121 10 Dec, 2012 [facility] [place] [facility] [address] [id number] [place] [address]- [address] 10 Dec, 2012 [facility] [place] [facility] [address] [id number] [place] [address]- 48[address] 10 Dec, 2012 [facility] [place] [facility] [address] [id number] [place] [address]- [address] 03 Dec, 2012 [facility] [place] [facility] [address] [id number] [place] [address]- [address]77 25 Sep, 2012 [facility] [place] [facility] [address] [id number] [place] [address] 20 Sep, 2012 [facility] [place] [facility] [address] [id number] [place] [address]- 254 18 Sep, 2012 [facility] [place] [facility] [address] [id number] [place] [address] 1892 16 Sep, 2012 [facility] [place] [facility] [address] [id number] [place] [address]- 2541 12 Sep, 2012 [facility] [place] [facility] [address] [id number] [place] [address] 7560 Nov, [facility] [place] [facility] [address] [id number] [place] [address]240 05 Nov, 2012 [facility] [place] [facility] [address] [id number] [place] [address] Oct, [facility] [place] [facility] [address] [id number] [place] [address] Oct, [facility] [place] [facility] [address] [id number] [place] [address] 97[address] Sep, [facility] [place] [facility] [address] [id number] [place] [address]- [address] Sep, [facility] [place] [facility] [address] [id number] [place] [address] Sep, [facility] [place] [facility] [address] [id number] [place] [address]- [address] Sep, [facility] [place] [facility] [address] [id number] [place] [address]- 9027 Sep, [facility] [place] [facility] [address] [id number] [place] [address]- [address]34 Sep, [facility] [place] [facility] [address] [id number] [place] [address]- 3094 Sep, [facility] [place] [facility] [address] [id number] [place] [address]138 Aug, [facility] [place] [facility] [address] [id number] [place] [address] Aug, [facility] [place] [facility] [address] [id number] [place] [address]- [address] 16 Aug, 2012 [facility] [place] [facility] [address] [id number] [place] [address]- 495[address] Aug, [facility] [place] [facility] [address] [id number] [place] [address] Aug, [facility] [place] [facility] [address] [id number] [place] [address] 2546 Aug, [facility] [place] [facility] [address] [id number] [place] [address]- [address] Aug, [facility] [place] [facility] [address] [id number] [place] [address] 2546 Aug, [facility] [place] [facility] [address] [id number] [place] [address] 2546 July, [facility] [place] [facility] [address] [id number] [place] [address] 2546 July, [facility] [place] [facility] [address] [id number] [place] [address]- [address]049 July, [facility] [place] [facility] [address] [id number] [place] [id number] July, [facility] [address] [id number] [place] [address] July, [facility] [place] [facility] [address] [id number] [place] [address]247 Jun, [facility] [place] [facility] [address] [id number] [place] [address]- 2280 May, [facility] [address] [id number] [place] [address] 2546 May, [facility] [address] [id number] [place] [address]- 6846 May, [facility] [place] [facility] [address] [id number] [place] [address]- 254 Apr, [facility] [place] [facility] [address] [id number] [place] [address] 2546 Apr, [facility] [place] [facility] [address] [id number] [place] [address]- 2546 Apr, [facility] [place] [facility] [address] [id number] [place] [address] 2546 Mar, [facility] [address] [id number] [place] [address] 28 Mar, 2012 [facility] [place] [facility] [address] [id number] [place] [address] 28 Mar, 2012 [facility] [place] [facility] [address] [id number] [place] [address] 14 Mar, 2012 [facility] [place] [facility] [address] [id number] [place] [address] 12[address] 10 Mar, 2012 [facility] [place] [facility] [address] [id number] [place] [address] 45[address] Mar, [facility] [place] [facility] [address] [id number] [place] [address] Mar, [facility] [place] [facility] [address] [id number] [place] [address] Feb, [facility] [address] [id number] [place] [address] Feb, [facility] [address] [id number] [place] [address] 9[address] Feb, [facility] [place] [facility] [address] [id number] [place] [address] 9[address] Feb, [facility] [address] [id number] [place] [address] 6[address] 17 Feb, 2012 [facility] [place] [facility] [address] [id number] [place] [address] 3651 17 Feb, 2012 [facility] [place] [facility] [address] [id number] [place] [address] Feb, [facility] [place] [facility] [address] [id number] [place] [address] 2546 Feb, [facility] [place] [facility] [address] [id number] [place] [address] 7560 Jan, [facility] [place] [facility] [address] [id number] [place] [address] 265[address] Jan, [facility] [place] [facility] [address] [id number] [place] [address] 49[address] Jan, [facility] [place] [facility] [address] [id number] [place] [address] 4[address] Jan, [facility] [place] [facility] [address] [facility] [id number] [place] [address] 6168 Jan, [facility] [place] [facility] [address] [id number] [place] [address]- 9586 Jan, [facility] [place] [facility] [address] [id number] [place] [address]- 3583 Jan, [facility] [place] [facility] [address] [id number] [place] [address] 0101 Jan, [facility] [place] [facility] [address] [facility] [id number] [place] [address]- 6893 Jan, [facility] [place] [facility] [address] [id number] [address] 75[address] Jan, [facility] [place] [facility] [address] [id number] [place] [address] 70[address] Jan, [facility] [place] [facility] [address] [facility] [id number] [place] [address] 4[address] Jan, [facility] [place] [facility] [address] [id number] [place] [address] 4[address] Jan, [facility] [place] [facility] [address] [id number] [place] [address] 4[address] Jan, [facility] [place] [facility] [address] [id number] [place] [address]- 66[address] Jan, [facility] [place] [facility] [address] [facility] [id number] [place] [address] Jan, [facility] [place] [facility] [address] [facility] [id number] [place] [address] Dec, [facility] [place] [facility] [address] [id number] [place] [address] 6[address] 17 Dec, 2011 [facility] [place] [facility] [address] [id number] [place] [address] 4086 16 Dec, 2011 [facility] [place] [facility] [address] [id number] [place] [address] 4696 16 Dec, 2011 [facility] [place] [facility] [address] [id number] [place] [address] Dec, [facility] [place] [facility] [address] [id number] [place] [address] 5986 Dec, [facility] [place] [facility] [address] [id number] [place] [address] 4641 Dec, [facility] [place] [facility] [address] [id number] [place] [address] 9356 Dec, [facility] [place] [facility] [address] [id number] [place] [address]- 6619 08 Dec, 2011 [facility] [place] [facility] [address] [id number] [place] [address]- 0683 05 Dec, 2011 [facility] [place] [facility] [address] [id number] [place] [address] 7696 18 Nov, 2011 [facility] [place] [facility] [address] [id number] [place] [address]- 4143 13 Nov, 2011 [facility] [place] [facility] [address] [id number] [place] [address]- 6636 24 Oct, 2011 [facility] [place] [facility] [address] [id number] [place] [address]- 7162 22 Oct, 2011 [facility] [place] [facility] [address] [id number] [place] [address]- 1717 17 Oct, 2011 [facility] [place] [facility] [address] [id number] [place] [address] 4543 16 Oct, 2011 [facility] [place] [facility] [address] [id number] [place] [address] 4060 Oct, [facility] [place] [facility] [address] [id number] [place] [address] 5277 Oct, [facility] [place] [facility] [address] [id number] [place] [address]- 0934 Oct, [facility] [place] [facility] [address] [id number] [place] [address]- 6617 Sep, [facility] [place] [facility] [address] [id number] [place] [address]- 0426 Aug, [facility] [place] [facility] [address] [id number] [place] [address] 2094 Aug, [facility] [place] [facility] [address] [id number] [place] [address]- 0068 Aug, [facility] [place] [facility] [address] [id number] [place] [address]- 5497 Aug, [facility] [place] [facility] [address] [id number] [place] [address] 3806 Aug, [facility] [place] [facility] [address] [id number] [place] [address] 0204 July, [facility] [place] [facility] [address] [id number] [place] [address]- 8634 July, [facility] [place] [facility] [address] [id number] [place] [address] 7408 July, [facility] [place] [facility] [address] [id number] [place] [address]- 8093 Jun, [facility] [place] [facility] [address] [id number] [place] [address]- 5275 Jun, [facility] [place] [facility] [address] [id number] [place] [address] 5224 Jun, [facility] [place] [facility] [address] [id number] [place] [address] 3996 Jun, [facility] [place] [facility] [address] [id number] [place] [address]- 2999 30 May, 2011 [facility] [place] [facility] [address] [id number] [place] [address]- 8406 30 May, 2011 [facility] [place] [facility] [address] [id number] [place] [address]- 2106 29 May, 2011 [facility] [place] [facility] [address] [id number] [place] [address]- 9256 28 May, 2011 [facility] [place] [facility] [address] [id number] [place] [address]- 9920 23 May, 2011 [facility] [place] [facility] [address] [id number] [place] [address]- 5757 22 May, 2011 [facility] [place] [facility] [address] [id number] [place] [address]- 7274 21 May, 2011 [facility] [place] [facility] [address] [id number] [place] [address]- 1879 19 May, 2011 [facility] [place] [facility] [address] [id number] [place] [address]- 4791 08 May, 2011 [facility] [place] [facility] [address] [id number] [place] [address]- 7385 05 May, 2011 [facility] [place] [facility] [address] [id number] [place] [address]- 7869 02 May, 2011 [facility] [place] [facility] [address] [id number] [place] [address]- 2657 May, [facility] [place] [facility] [address] [id number] [place] [address]- 0639 Mar, [facility] [place] [facility] [address] [id number] [place] [address]- 7201 Mar, [facility] [place] [facility] [address] [id number] [place] [address]- 9505 Feb, [facility] [place] [facility] [address] [id number] [place] [address]- 4886 Feb, [facility] [place] [facility] [address] [id number] [place] [address]- 0021 20 Feb, 2011 [facility] [place] [facility] [address] [id number] [place] [address]- 8760 15 Feb, 2011 [facility] [place] [facility] [address] [id number] [place] [address]- 3806 13 Feb, 2011 [facility] [place] [facility] [address] [id number] [place] [address]- 8356 13 Feb, 2011 [facility] [place] [facility] [address] [id number] [place] [address]- 3203 13 Feb, 2011 [facility] [place] [facility] [address] [id number] [place] [address] 28 Jan, 2011 [facility] [place] [facility] [address] [id number] [place] [address]- 8708 23 Jan, 2011 [facility] [place] [facility] [address] [id number] [place] [address]- 8465 Jan, [facility] [place] [facility] [address] [id number] [place] [address]- 5381 Jan, [facility] [place] [facility] [address] [id number] [place] [address]- 1132 Jan, [facility] [place] [facility] [address] [id number] [place] [address]- 8486 Jan, [facility] [place] [facility] [address] [id number] [place] [address]- 6332 Dec, [facility] [place] [facility] [address] [id number] [place] [address]- 7816 Dec, [facility] [place] [facility] [address] [id number] [place] [address]- 4511 Dec, [facility] [place] [facility] [address] [id number] [place] [address]- 4025 July, [facility] [place] [facility] [address] [id number] [place] [address]- 3693 July, [facility] [place] [facility] [address] [id number] [place] [address]- 4303 08 Feb, 2010 [facility] [place] [facility] [address] [id number] [place] [address]- 1204 Jan, [facility] [place] [facility] [address] [id number] [place] [address]- 2540 Dec, [facility] [place] [facility] [address] [id number] [place] [address]- 4427 Dec, [facility] [place] [facility] [address] [id number] [place] [address]- 4571 15 Sep, 2009 [facility] [place] [facility] [address] [id number] [place] [address]- 2261 Aug, [facility] [place] [facility] [address] [id number] [place] [address]- 4400 Jun, [facility] [place] [facility] [address] [id number] [place] [address]- 4244 Jun, [facility] [place] [facility] [address] [id number] [place] [address]- 9180 Jan, [facility] [place] [facility] [address] [id number] [place] [address]- 6240 Jan, [facility] [place] [facility] [address] [id number] [place] [address]- 1555 Jan, [facility] [place] [facility] [address] [id number] [place] [address]- 2048 Jan, [facility] [place] [facility] [address] [id number] [place] [address]- 6530 29 Dec, 2008 [facility] [place] [facility] [address] [id number] [place] [address]- 8284 Dec, [facility] [place] [facility] [address] [id number] [place] [address]- 4119 15 Dec, 2008 [facility] [place] [facility] [address] [id number] [place] [address] 2546 Nov, [facility] [address] [facility] [id number] [place] [address]- 1586 July, [facility] [address] [facility] [id number] [place] [address]- 2546 May, [facility] [address] [facility] [id number] [place] [address]- 2546 Apr, [facility] [address] [id number] [place] [address] 2546 Feb, [facility] [address] [facility] [id number] [place] [address]- 5381 Dec, IMMUNIZATIONS No Known Immunizations SOCIAL HISTORY Never Assessed REASON FOR VISIT Medication Side Effects PLAN OF CARE VITAL SIGNS MEDICATIONS Medication Instructions Dosage Frequency Start Date End Date Duration Status MetFORMIN HCl ER 500 MG 1 tab with evening meal x 7 day then 1 tab bid with meals x 7 then 1 tab at AM meal and 2 tabs at PM meal x 7 then 2 tab BID @ meals Nov, 30 days Active Metformin HCl 1000 mg Orally twice a day 1 tablet with a meal 12h 10 Nov, 2017 Active RESULTS No Results PROCEDURES No Known [...]
--- OUTSIDE RECORDS SUMMARY | 2018-06-14 14:23 | XMS REPORT ---
Author Author BEVERLY TAO Organization [facility] Address [address] [place] [address] Care Team Providers Care Down Filler Name Role Phone BEVERLY TAO Unavailable PROBLEMS Type Condition ICD9-CM Code OPZ90-LL Code Onset Dates Condition Status SNOMED Code Problem Type 2 diabetes mellitus with complication E11.8 Active 415189042 Problem Acute bilateral low back pain with right-sided sciatica M54.41 Active 734151653 Problem Hyperlipidemia, unspecified E78.5 Active 20885993 Problem Hypertriglyceridemia E78.1 Active 051062878 Problem Obesity, unspecified 278.00 Active 785186459 Problem Other chronic pain G89.29 Active 16170042 Problem Eye exam normal Z01.00 Active 858773852 Problem Post laminectomy syndrome M96.1 Active 29003778 Problem care home current use of insulin Z79.4 Active 487574589 Problem New daily persistent headache G44.52 Active 766770633 Problem Lumbago with sciatica, left side M54.42 Active 638826897 Problem Type 2 diabetes mellitus with hyperglycemia E11.65 Active 27586723 Problem Extreme poverty Z59.5 Active 95397655 Problem 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 Active 42515135 Problem Hyperlipidemia 272.4 Active 30189126 Problem Bipolar disorder, in partial remission, most recent episode manic F31.73 Active 49159675 Problem Irritable bowel syndrome with diarrhea K58.0 Active 140636200 Problem Lumbar radiculopathy M54.16 Active 174142120 Problem Non compliance with medical treatment Z91.19 Active 8452655 Problem Bipolar 1 disorder F31.9 Active 790637741 Problem Diabetes E11.9 Active 912680149 Problem long term current 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 Z79.891 Active 291367730 ALLERGIES Substance Reaction Event Type Date Status Zithromax Chest pain Drug Allergy Nov, Active Prednisone elevated blood sugars Drug Allergy Nov, Active ENCOUNTERS Encounter Location Date Diagnosis [facility] [facility] [id number] [place] [address] 67784- 0191 Mar, [facility] [facility] [address] [place] [id number] [place] [address] 25639- 6081 Dec, [facility] [facility] [address] [place] [id number] [place] [address] 13779- 4223 24 Nov, 2017 [facility] [facility] [address] 90511- 0968 Nov, Hypertriglyceridemia E78.1 [facility] [facility] [address] 81236- 8242 20 Nov, 2017 Bipolar 1 disorder F31.9 ; 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 and Extreme poverty Z59.5 [facility] [address] [place] [id number] [place] [address] 06318- 0829 18 Nov, 2017 Type 2 diabetes mellitus with complication E11.8 [facility] [address] [place] [id number] [place] [address] 56341- 4755 18 Nov, 2017 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 and Bipolar disorder, in partial remission, most recent episode manic F31.73 [facility] [facility] [address] [place] [id number] [place] [address] 70651- 8866 12 Nov, 2017 Type 2 diabetes mellitus with complication E11.8 [facility] [address] [place] [address] 37052- 3096 11 Nov, 2017 Bipolar 1 disorder F31.9 ; 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 and Extreme poverty Z59.5 [facility] [facility] [address] [place] [id number] [place] [address] 40490- 9169 10 Nov, 2017 Type 2 diabetes mellitus with complication E11.8 ; Pain of left upper arm M79.622 ; Pain in right upper arm M79.621 ; Hyperglycemia R73.9 ; Lumbago with sciatica, left side M54.42 and Other chronic pain G89.29 [facility] [address] [place] [id number] [place] [address] 01095- 3775 Oct, Bipolar 1 disorder F31.9 ; 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 and Extreme poverty Z59.5 [facility] [address] [place] [id number] [place] [address] 64377- 6285 Oct, Type 2 diabetes mellitus with hyperglycemia E11.65 ; long term current use of insulin Z79.4 and Other acute gastritis without hemorrhage K29.00 [facility] [address] 78454- 2250 Oct, Bipolar 1 disorder F31.9 ; 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 and Extreme poverty Z59.5 [facility] [facility] [address] 03354- 5356 Sep, Diarrhea, unspecified R19.7 and Vomiting, unspecified R11.10 [facility] [address] 74540- 8024 Aug, Type 2 diabetes mellitus with complication E11.8 [facility] [facility] [address] 18000- 8574 Aug, [facility] [address] 34406- 6529 Aug, Bipolar 1 disorder F31.9 ; 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 and Extreme poverty Z59.5 [facility] [address] [place] [id number] [place] [address] 29605- 4203 Aug, 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 and Bipolar disorder, in partial remission, most recent episode manic F31.73 [facility] [address] [place] [id number] [place] [address] 75729- 8817 Aug, Bipolar 1 disorder F31.9 [facility] [address] 32024- 1150 Aug, [facility] [address] [place] [id number] [place] [address] 94525- 5296 Aug, [facility] [address] 36743- 6838 Aug, Bipolar 1 disorder F31.9 ; 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 and Extreme poverty Z59.5 [facility] [address] [place] [id number] [place] [address] 60599- 9705 July, Type 2 diabetes mellitus with complication E11.8 [facility] [facility] [address] [place] [id number] [place] [address] 95083- 2143 July, Bipolar 1 disorder F31.9 ; 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 and Extreme poverty Z59.5 [facility] [address] [place] [id number] [place] [address] 60710- 0013 Jun, Bipolar 1 disorder F31.9 ; 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 and Extreme poverty Z59.5 [facility] [address] [place] [address] 26779- 9356 Jun, Bipolar 1 disorder F31.9 ; 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 and Extreme poverty Z59.5 [facility] [address] [place] [id number] [place] [address] 64616- 5010 Jun, Bipolar 1 disorder F31.9 ; 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 and Extreme poverty Z59.5 [facility] [facility] [address] [place] [id number] [place] [address] 95036- 4199 May, Urinary tract infection without hematuria, site unspecified N39.0 [facility] [facility] [address] [place] [address] 89786- 5231 May, Bipolar 1 disorder F31.9 ; 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 and Extreme poverty Z59.5 [facility] [address] [place] [address] 61531- 1409 Apr, Diabetes E11.9 and Breast cancer screening Z12.31 [facility] [address] [place] [id number] [place] [address] 55299- 0624 20 Apr, 2017 Bipolar 1 disorder F31.9 and 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 [facility] [facility] [address] [place] [id number] [place] [address] 13244- 8516 Mar, Bipolar 1 disorder F31.9 ; 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 and Extreme poverty Z59.5 [facility] [address] [place] [id number] [place] [address] 19707- 9422 Mar, New daily persistent headache G44.52 ; Leg pain 729.5 and History of carpal tunnel release Z98.890 [facility] [address] [place] [id number] [place] [address] 26002- 8189 Mar, Hyperlipidemia, unspecified E78.5 [facility] [facility] [address] [place] [id number] [place] [address] 37807- 0677 Mar, Bipolar 1 disorder F31.9 ; 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 and Extreme poverty Z59.5 [facility] [facility] [address] [place] [id number] [place] [address] 60185- 9879 Feb, Bipolar 1 disorder F31.9 ; 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 and Extreme poverty Z59.5 [facility] [address] [place] [id number] [place] [address] 45344- 6213 Feb, Diabetes E11.[address] 13294- 9286 Feb, Viral syndrome B34.[address] 22317- 9588 Jan, Other viral agents as the cause of diseases classified elsewhere B97.89 and Acute upper respiratory infection, unspecified J06.9 [facility] [facility] [address] [place] [id number] [place] [address] 62984- 1490 Jan, Bipolar 1 disorder F31.9 and 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 [facility] [address] [place] [id number] [place] [address] 48076- 8099 Jan, Bipolar 1 disorder F31.9 ; 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 and Extreme poverty Z59.5 [facility] [address] 18895- 3940 Dec, Diabetes E11.9 [facility] [id number] [place] [address] 09200- 3095 Dec, Diabetes E11.9 and Encounter for immunization Z23 [facility] [address] [place] [id number] [place] [address] 46423- 8786 Dec, Bipolar 1 disorder F31.9 ; 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 and Extreme poverty Z59.5 [facility] [address] [place] [id number] [place] [address] 43967- 9274 Dec, Back pain M54.9 [facility] [address] [place] [id number] [place] [address] 88501- 7765 Nov, [facility] [address] [place] [id number] [place] [address] 71790- 3116 Nov, Bipolar 1 disorder F31.9 ; 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 and Extreme poverty Z59.5 [facility] [address] [place] [id number] [place] [address] 62091- 3727 Nov, Bipolar 1 disorder F31.9 ; 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 and Extreme poverty Z59.5 [facility] [address] [place] [id number] [place] [address] 74009- 4804 Oct, 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 and Bipolar 1 disorder F31.9 [facility] [address] [place] [id number] [place] [address] 90691- 3001 Oct, Bipolar 1 disorder F31.9 ; 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 and Extreme poverty Z59.5 [place] [address] [place] [address] 25506- 0741 Oct, Back pain M54.9 [facility] [address] [place] [id number] [place] [address] 28876- 7152 Oct, 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 and Type 2 diabetes mellitus with complication E11.8 [facility] [address] [place] [id number] [place] [address] 56999- 3565 Sep, Bipolar 1 disorder F31.9 ; 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 and Extreme poverty Z59.5 [facility] [address] [place] [id number] [place] [address] 02003- 0128 Sep, 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 and Bipolar 1 disorder F31.9 [facility] [address] [place] [id number] [place] [address] 86560- 2389 Sep, Bipolar 1 disorder F31.9 ; 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 and Extreme poverty Z59.5 [facility] [address] [place] [id number] [place] [address] 25986- 3819 Aug, Diabetes E11.9 ; Hyperlipidemia, unspecified E78.5 and Lumbar radiculopathy M54.16 [facility] [address] [place] [id number] [place] [address] 46850- 4464 Aug, Bipolar 1 disorder F31.9 ; 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 and Extreme poverty Z59.5 [facility] [address] [place] [id number] [place] [address] 60752- 3030 Aug, [facility] [address] [place] [id number] [place] [address] 31733- 1163 Aug, [facility] [address] [place] [id number] [place] [address] 47843- 6907 Aug, [place] [address] [place] [id number] [place] [address] 26435- 8661 July, [place] [address] [place] [id number] [place] [address] 12154- 7843 July, Acute bilateral low back pain with right-sided sciatica M54.41 [place] [address] [place] [id number] [place] [address] 58506- 1206 July, Bipolar 1 disorder F31.9 ; 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 and Extreme poverty Z59.5 [facility] [address] [place] [id number] [place] [address] 73471- 8663 17 May, 2017 Back pain M54.9 and Diabetes E11.9 [facility] [address] [place] [address] 67069- 9460 Jun, Bipolar 1 disorder F31.9 ; 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 and Extreme poverty Z59.5 [place] [address] [place] [id number] [place] [address] 01515- 3780 Jun, Bipolar 1 disorder F31.9 ; 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 and Extreme poverty Z59.5 [facility] [address] [place] [id number] [place] [address] 62640- 8163 May, Visit for pelvic exam Z01.419 ; Acute vaginitis N76.0 and Diabetes E11.9 [facility] [address] [place] [id number] [place] [address] 99599- 4164 May, Bipolar 1 disorder F31.9 ; 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 and Extreme poverty Z59.5 [facility] [address] [place] [id number] [place] [address] 15759- 9171 May, [place] [address] 45761- 5660 May, [place] [address] [place] [id number] [place] [address] 50988- 8449 May, Bipolar 1 disorder F31.9 ; 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 and Extreme poverty Z59.5 [facility] [address] [place] [id number] [place] [address] 49447- 4504 May, Hyperlipidemia, unspecified E78.5 [facility] [address] [place] [id number] [place] [address] 27015- 0116 Apr, Breast cancer screening Z12.39 [facility] [address] [place] [id number] [place] [address] 88280- 3553 Mar, [facility] [address] [place] [id number] [place] [address] 74653- 5663 Mar, Bipolar disorder, current episode mixed, unspecified F31.60 [facility] [address] [place] [address] 94410- 2134 Mar, Bipolar 1 disorder F31.9 ; 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 and Extreme poverty Z59.5 [facility] [address] [place] [id number] [place] [address] 42217- 3411 30 Feb, 2016 Acute nasopharyngitis J00 [facility] [address] [place] [id number] [place] [address] 21658- 2835 27 Feb, 2016 Dental examination Z01.20 [facility] [address] [place] [id number] [place] [address] 33109- 6896 21 Feb, 2016 Dental cavities K02.9 and Chronic periodontitis, unspecified K05.30 [facility] [address] [place] [id number] [place] [address] 33850- 0065 13 Feb, 2016 Low back pain M54.5 and Extreme poverty Z59.5 [facility] [address] [place] [id number] [place] [address] 74761- 9761 08 Feb, 2016 [facility] [address] [place] [id number] [place] [address] 32818- 2207 05 Feb, 2016 Routine gynecological examination V72.31 ; Breast cancer screening Z12.39 and Herpes simplex type 1 infection B00.9 [facility] [address] [place] [id number] [place] [address] 20743- 9813 Feb, Diabetes E11.9 [facility] [address] [place] [id number] [place] [address] 35625- 6073 Feb, Encounter for dental examination and cleaning without abnormal findings Z01.20 [facility] [address] [place] [id number] [place] [address] 56571- 2477 Jan, Hyperlipidemia, unspecified E78.5 [facility] [place] [address] [place] [id number] [place] [address] 11888- 9908 Jan, Bipolar 1 disorder F31.9 ; 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 and Extreme poverty Z59.5 [facility] [address] [place] [address]- 8106 18 Jan, 2016 Diabetes E11.9 [facility] [address] [place] [id number] [place] [address] 15227- 2687 17 Jan, 2016 Diabetes E11.9 [facility] [address] [place] [id number] [place] [address] 47872- 0173 14 Dec, 2015 Bipolar 1 disorder F31.9 ; 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 and Extreme poverty Z59.5 [facility] [facility] [address] [place] [id number] [place] [address] 26602- 3832 13 Dec, 2015 Bipolar disorder, current episode mixed, unspecified F31.60 and 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 [facility] [address] [place] [id number] [place] [address] 47607- 2484 16 Nov, 2015 Bipolar 1 disorder F31.9 ; 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 ; Extreme poverty Z59.5 and Non compliance with medical treatment Z91.19 [facility] [address] [place] [id number] [place] [address] 73630- 4448 Oct, [place] [address] 33763- 4686 Oct, Dental caries K02.9 [facility] [address] [place] [id number] [place] [address] 35385- 2078 Oct, Low back pain M54.5 and Other chronic pain G89.29 [facility] [address] [place] [id number] [place] [address] 56300- 4066 Oct, Bipolar 1 disorder F31.9 ; 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19 [facility] [address] [address]- 6213 Oct, [facility] [address] [place] [id number] [place] [address] 18818- 5830 Sep, Type 2 diabetes mellitus with complication E11.8 [facility] [address] [place] [id number] [place] [address] 72634- 5839 Sep, Bipolar disorder, current episode mixed, unspecified F31.60 [facility] [address] [place] [address] 81472- 4190 Sep, Bipolar disorder, current episode mixed, unspecified F31.60 [facility] [place] [address] [place] [address] 51437- 7400 Sep, Bipolar disorder, in partial remission, most recent episode manic F31.73 ; 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5 and Non compliance with medical treatment Z91.19 [facility] [address] [address]- 0541 Aug, [place] [address] [place] [address] 23765- 5697 July, Bipolar disorder, in partial remission, most recent episode manic F31.73 ; 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 ; Extreme poverty Z59.5 and Non compliance with medical treatment Z91.19 [facility] [address] [place] [id number] [place] [address] 81999- 3137 July, Bipolar disorder, current episode mixed, unspecified F31.60 [facility] [facility] [address] [place] [id number] [place] [address] 25236- 3877 July, Bipolar disorder, in partial remission, most recent episode manic F31.73 ; 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 ; Extreme poverty Z59.5 and Non compliance with medical treatment Z91.19 [facility] [address] [place] [id number] [place] [address] 26277- 8250 July, long term current 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 Z79.891 and Chronic pain G89.29 [facility] [address] [place] [id number] [place] [address] 69155- 0111 Jun, long term current 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 Z79.891 and Bipolar 1 disorder F31.9 [facility] [address] [place] [address] [id number] [place] [address] 13204- 8500 Jun, [place] [address] [place] [address] 91208- 2123 Jun, [facility] [address] [place] [address] [id number] [place] [address] 85276- 5311 Jun, [facility] [address] [place] [address] [id number] [place] [address] 40436- 0459 Jun, Bipolar disorder, in partial remission, most recent episode manic F31.73 ; 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 and Non compliance with medical treatment Z91.19 [facility] [address] [place] [address] 49981- 3097 May, Bipolar disorder, in partial remission, most recent episode manic F31.73 ; 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 and Non compliance with medical treatment Z91.19 [facility] [address] [place] [address] 66764- 4639 22 May, 2015 Bipolar disorder, in partial remission, most recent episode manic F31.73 [facility] [address] [place] [address] 11300- 5467 22 May, 2015 Diabetes E11.9 and Chronic pain G89.29 [facility] [address] [place] [address] [id number] [place] [address] 98020- 9279 14 May, 2015 [facility] [address] [address] [id number] [place] [address] 70820- 7056 08 May, 2015 Bipolar disorder, in partial remission, most recent episode manic F31.73 ; Non compliance with medical treatment Z91.19 and 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 [facility] [facility] [address] [address] [id number] [place] [address] 57268- 1642 08 May, 2015 Type 2 diabetes mellitus with complication E11.8 and Back pain M54.9 [facility] [address] [address] [id number] [place] [address] 97614- 0263 May, Bipolar disorder, in partial remission, most recent episode manic F31.73 and 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 [facility] [address] [place] [address] 00821- 7132 24 Apr, 2015 [facility] [address] [id number] [place] [address] 43281- 3297 Apr, [facility] [place] [address] [id number] [place] [address] 26829- 7778 Apr, [facility] [address] [id number] [place] [address] 59818- 9717 09 Apr, 2015 Diabetes E11.9 ; Irritable bowel syndrome with diarrhea K58.0 and Lumbar radiculopathy M54.16 [facility] [address] [place] [address] 58742- 4523 02 Feb, 2016 Breast screening Z12.39 [facility] [address] [address]- 2069 02 Apr, 2015 Bipolar disorder, in partial remission, most recent episode manic F31.73 ; Non compliance with medical treatment Z91.19 and 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 [facility] [address] [place] [address] 93134- 1424 Mar, Edema, unspecified type R60.9 and Type 2 diabetes mellitus with complication E11.8 [facility] [address] [id number] [place] [address] 94469- 7055 Mar, Bipolar disorder, in partial remission, most recent episode manic F31.73 ; Non compliance with medical treatment Z91.19 ; 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 and Extreme poverty Z59.5 [facility] [address] [id number] [place] [address] 08556- 9519 Mar, Bipolar disorder, current episode mixed, unspecified F31.60 ; 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 ; Extreme poverty Z59.5 and Generalized anxiety disorder F41.1 [facility] [address] [id number] [place] [address] 39571- 4924 Mar, Bipolar disorder, in partial remission, most recent episode manic F31.73 ; 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 and Extreme poverty Z59.5 [facility] [address] [address]- 8890 Feb, Bipolar disorder, in partial remission, most recent episode manic F31.73 ; 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 and Extreme poverty Z59.5 [facility] [address] [place] [address] 97696- 1253 Feb, Bipolar disorder, in partial remission, most recent episode manic F31.73 ; 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 and Extreme poverty Z59.5 [place] [address] [place] [address] 04145- 6769 Feb, [facility] [address] [id number] [place] [place] [address]- 1549 Jan, Type 2 diabetes mellitus with complication E11.8 and Petechiae R23.[address] 287379- 6348 Jan, Type 2 diabetes mellitus with complication E11.8 ; Edema, unspecified R60.9 ; Petechiae R23.3 and Diabetes E11.[address] [address]- 0343 Jan, Bipolar disorder, in partial remission, most recent episode manic F31.73 ; 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 and Extreme poverty Z59.[address] 18366- 5301 Jan, Bipolar disorder, in partial remission, most recent episode manic F31.73 ; 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 and Extreme poverty Z59.5 [place] [address] [address]- [address] Dec, Bipolar disorder, in partial remission, most recent episode manic F31.[address] 55393- 8181 Dec, Edema, due to unspecified malnutrition type, unspecified edema R60.9 and Essential hypertension I10 [address] [address]671- 5904 Dec, Bipolar disorder, in partial remission, most recent episode manic F31.73 [place] [address] [address]- 8353 Nov, Bipolar I disorder, most recent episode (or current) mixed, unspecified 296.[address] 63470- 0946 Nov, Stress incontinence, female 625.6 ; Back pain 724.5 and Leg pain 729.[address] [address]60- 5792 Nov, Generalized anxiety disorder 300.02 and Bipolar II disorder 296.89 [facility] [address] [address] 39[address] Nov, Bipolar I disorder, most recent episode (or current) mixed, unspecified 296.60 [facility] [address], [place] [address] 8595 Oct, [facility] [address] [place] [id number] [place] [address] 57475- 1842 Oct, [facility] [address], [place] [address] 1053 Oct, [facility] [address] [id number] [place] [address] 98912- 7620 Oct, Bipolar I disorder, most recent episode (or current) mixed, unspecified 296.60 [facility] [address], [place] [address] 5209 Sep, Diabetes 250.00 [facility] [address], [place] [address]- 0576 Sep, Bipolar I disorder, most recent episode (or current) mixed, unspecified 296.60 [facility] [address], [place] [address]- 7085 Sep, [facility] [address], [place] [address]- 8074 Sep, [facility] [address], [place] [address]- 3791 Sep, Bipolar I disorder, most recent episode (or current) mixed, unspecified 296.60 [facility] [address], [place] [address]- 3108 Sep, Bipolar I disorder, most recent episode (or current) mixed, unspecified 296.60 [facility] [address], [place] [address]- 6935 Sep, [facility] [address], [place] [address]- 3845 Sep, Anxiety 300.00 ; Diabetes 250.00 and Hyperlipidemia 272.4 [facility] [id number] [place] [address] 21093- 1889 Aug, [facility] [address] [id number] [place] [address] 15270- 1356 Aug, [facility] [id number] [place] [address] 40496- 0433 Aug, [facility] [id number] [place] [address] 38060- 6649 Aug, Bipolar I disorder, most recent episode (or current) mixed, unspecified 296.60 [facility] [address] [id number] [place] [address] 10698- 9039 Aug, Generalized anxiety disorder 300.02 and Bipolar II disorder 296.89 [facility] [id number] [place] [address] 71739- 1075 July, Bipolar I disorder, most recent episode (or current) mixed, unspecified 296.60 [facility] [address] [id number] [place] [address] 58355- 4338 July, Cough 786.2 [facility] [address] [place] [id number] [place] [address] 59862- 8481 July, Bipolar I disorder, most recent episode (or current) mixed, unspecified 296.60 [facility] [address], [place] [address]- 6507 Jun, Diabetes 250.00 [facility] [address] [id number] [place] [address] 99313- 8947 14 Jun, 2014 [facility] [address], [place] [address]- 7260 Jun, [facility] [address] [id number] [place] [address] 18364- 7339 May, [facility] [place] [facility] [address] [id number] [place] [address]- 1832 May, [facility] [place] [facility] [address] [id number] [place] [address]- 1590 May, [facility] [place] [facility] [address] [id number] [place] [address]- 9225 May, [facility] [place] [facility] [address] [id number] [place] [address]- 2915 May, [facility] [place] [facility] [address] [id number] [place] [address]- 5559 May, [facility] [place] [facility] [address] [id number] [place] [address]- 2031 Apr, [facility] [place] [facility] [address] [facility] [id number] [place] [address]- 6878 Apr, [facility] [place] [facility] [address] [id number] [place] [address]- 4551 Apr, [facility] [place] [facility] [address] [id number] [place] [address]- 6340 Apr, [facility] [place] [facility] [address] [facility] [id number] [place] [address]- 8627 Apr, [facility] [place] [facility] [address] [id number] [place] [address]- 3938 Apr, [facility] [place] [facility] [address] [id number] [address]- 3088 Apr, [facility] [place] [facility] [address] [id number] [place] [address]- 8784 Apr, [facility] [place] [facility] [address] [facility] [id number] [place] 8247 Mar, [facility] [place] [facility] [address] [facility] [id number] [place] [address]- 6088 Mar, [facility] [place] [facility] [address] [id number] [place] [address]- 5975 Mar, [facility] [address] [id number] [place] [address]- 3833 Mar, [facility] [address] [id number] [place] [address]- 8123 Mar, [facility] [address] [id number] [place] [address]- 7287 Mar, [facility] [address] [id number] [place] [address]- 3990 Mar, [facility] [address] [id number] [place] [address]- 9168 Mar, [facility] [address] [id number] [place] [address]- 9263 Feb, [facility] [address] [id number] [place] [address]- 0141 Feb, [facility] [address] [id number] [place] [address]- 3342 Feb, [facility] [address] [id number] [place] [address]- 5726 Feb, [facility] [address] [id number] [place] [address]- 6419 Feb, [facility] [address] [id number] [place] [address]- 3388 Feb, [facility] [address] [id number] [place] [address]- 2185 Feb, [facility] [address] [id number] [place] 1897 Feb, [facility] [address] [id number] [place] [address]- 7214 Feb, [facility] [address] [id number] [place] [address]- 7927 Feb, [facility] [place] [facility] [address] [id number] [place] [address]- 9104 Jan, [facility] [place] [facility] [address] [id number] [place] [address]- 2507 Jan, [facility] [place] [facility] [address] [id number] [place] [address]- 9602 Jan, [facility] [place] [facility] [address] [id number] [place] [address]- 5312 Jan, [facility] [place] [facility] [address] [id number] [place] [address]- 3535 Jan, [facility] [place] [facility] [address] [id number] [place] [address]- 8635 Jan, [facility] [place] [facility] [address] [id number] [place] [address]- 7822 Jan, [facility] [place] [facility] [address] [id number] [place] [address]- 0134 Jan, [facility] [place] [facility] [address] [id number] [place] [address]- 3738 Jan, [facility] [place] [facility] [address] [id number] [place] [address]- 7306 Jan, [facility] [place] [facility] [address] [id number] [place] [address]- 9320 Jan, [facility] [place] [facility] [address] [id number], [place] [address]- 5320 Jan, [facility] [place] [facility] [address] [id number] [place] [address]- 6742 Jan, [facility] [place] [facility] [address] [id number] [place] [address]- 8736 Jan, [facility] [place] [facility] [address] [id number], [place] [address]- 9881 Jan, [facility] [place] [facility] [address] [id number], [place] [address]- 6442 Dec, [facility] [place] [facility] [address] [id number] [place] [address]- 6261 Dec, 2013 [facility] [place] [facility] [address] [id number] [place] [address]- 2224 Dec, 2013 [facility] [place] [facility] [address] [id number] [place] [address]- 8537 Dec, 2013 [facility] [place] [facility] [address] [id number] [place] [address]- 7217 Dec, 2013 [facility] [place] [facility] [address] [id number] [place] [address]- 9026 Dec, [facility] [place] [facility] [address] [id number] [place] [address]- 0809 Dec, [facility] [place] [facility] [address] [id number] [place] [address]- 2169 Dec, [facility] [place] [facility] [address] [id number] [place] [address]- 0648 25 Nov, 2013 [facility] [place] [facility] [address] [id number] [place] [address]- 2468 25 Nov, 2013 [facility] [place] [facility] [address] [id number] [place] [address]- 3683 10 Nov, 2013 [facility] [place] [facility] [address] [id number], [place] [address]- 0765 10 Sep, 2013 [facility] [place] [facility] [address] [id number], [place] [address]- 8481 08 Sep, 2013 [facility] [place] [facility] [address] [id number] [place] [address]- 6460 08 Sep, 2013 [facility] [place] [facility] [address] [id number], [place] [address]- 0283 08 Sep, 2013 [facility] [place] [facility] [address] [id number] [place] [address]- 8280 08 Sep, 2013 [facility] [place] [facility] [address] [id number] [place] [address]- 9225 08 Nov, 2013 [facility] [place] [facility] [address] [id number] [place] [address]- 5606 08 Nov, 2013 [facility] [place] [facility] [address] [id number] [place] [address]- 4996 04 Nov, 2013 [facility] [place] [facility] [address] [id number] [place] [address]- 1963 04 Nov, 2013 [facility] [place] [facility] [address] [id number] [place] [address]- 2943 03 Nov, 2013 [facility] [place] [facility] [address] [id number] [place] [address]- 3924 Nov, 2013 [facility] [place] [facility] [address] [id number] [place] [address]- 7318 Nov, 2013 [facility] [place] [facility] [address] [id number] [place] [address]- 2992 Oct, [facility] [place] [facility] [address] [id number] [place] [address]- 5350 Oct, [facility] [place] [facility] [address] [id number] [place] [address]- 9107 Oct, [facility] [place] [facility] [address] [id number] [place] [address]- 1099 Oct, [facility] [place] [facility] [address] [id number] [place] [address]- 0583 Oct, [facility] [place] [facility] [address] [id number] [place] [address]- 3553 Oct, [facility] [place] [facility] [address] [id number] [place] [address]- 2813 Oct, [facility] [place] [facility] [address] [id number] [place] [address]- 2249 Oct, [facility] [place] [facility] [address] [id number] [place] [address]- 1266 Oct, [facility] [place] [facility] [address] [id number] [place] [address]- 5549 Oct, [facility] [place] [facility] [address] [id number] [place] [address]- 7967 Oct, [facility] [place] [facility] [address] [id number] [place] [address]- 6084 Oct, [facility] [place] [facility] [address] [id number] [place] [address]- 2454 Oct, [facility] [place] [facility] [address] [id number] [place] [address]- 6847 Oct, [facility] [place] [facility] [address] [id number] [place] [address]- 6238 Sep, [facility] [place] [facility] [address] [id number] [place] [address]- 1488 Sep, [facility] [place] [facility] [address] [id number] [place] [address]- 8953 Sep, [facility] [place] [facility] [address] [id number] [place] [address]- 1206 Sep, [facility] [place] [facility] [address] [id number] [place] [address]- 9045 Sep, [facility] [place] [facility] [address] [id number] [place] [address]- 3181 Sep, [facility] [place] [facility] [address] [id number] [place] [address]- 1223 Sep, [facility] [place] [facility] [address] [id number] [place] [address]- 7736 Sep, [facility] [place] [facility] [address] [id number] [place] [address]- 8553 Aug, [facility] [place] [facility] [address] [id number] [place] [address]- 2927 Aug, [facility] [place] [facility] [address] [id number] [place] [address]- 7076 Aug, [facility] [place] [facility] [address] [id number] [place] [address]- 3940 Aug, [facility] [place] [facility] [address] [id number] [place] [address]- 9734 Aug, [facility] [place] [facility] [address] [id number] [place] [address]- 9284 Aug, [facility] [place] [facility] [address] [id number] [place] [address]- 2570 Aug, [facility] [place] [facility] [address] [id number] [place] [address]- 3413 Aug, [facility] [place] [facility] [address] [id number] [place] [address]- 2644 July, [facility] [place] [facility] [address] [id number] [place] [address]- 7650 July, [facility] [place] [facility] [address] [id number] [place] [address]- 7368 July, [facility] [place] [facility] [address] [id number] [place] [address]- 5267 July, [facility] [place] [facility] [address] [id number] [place] [address]- 5932 July, [facility] [place] [facility] [address] [id number] [place] [address]- 4674 July, [facility] [place] [facility] [address] [id number] [place] [address]- 8576 July, [facility] [place] [facility] [address] [id number] [place] [address]- 5912 July, [facility] [place] [facility] [address] [id number] [place] [address]- 9919 Jun, [facility] [place] [facility] [address] [id number] [place] [address]- 8430 Jun, [facility] [place] [facility] [address] [id number] [place] [address]- 7095 Jun, [facility] [place] [facility] [address] [id number] [place] [address]- 7555 Jun, [facility] [place] [facility] [address] [id number] [place] [address]- 1426 Jun, [facility] [place] [facility] [address] [id number] [place] [address]- 7731 Jun, [facility] [place] [facility] [address] [id number] [place] [address]- 4503 Jun, [facility] [place] [facility] [address] [id number] [place] [address]- 7540 Jun, [facility] [place] [facility] [address] [id number] [place] [address]- 6408 Jun, [facility] [place] [facility] [address] [id number] [place] [address]- 8506 Jun, [facility] [place] [facility] [address] [id number] [place] [address]- 9483 Jun, [facility] [place] [facility] [address] [id number] [place] [address]- 6365 Jun, [facility] [place] [facility] [address] [id number] [place] [address]- 7182 May, [facility] [place] [facility] [address] [id number] [place] [address]- 2250 May, [facility] [place] [facility] [address] [id number] [place] [address]- 5138 May, [facility] [place] [facility] [address] [id number] [place] [address]- 0438 May, [facility] [place] [facility] [address] [id number] [place] [address]- 9468 May, [facility] [place] [facility] [address] [id number] [place] [address]- 3233 13 May, 2013 [facility] [place] [facility] [address] [id number] [place] [address]- 8956 12 May, 2013 [facility] [place] [facility] [address] [id number] [place] [address]- 2818 12 May, 2013 [facility] [place] [facility] [address] [facility] [id number] [place] [address]- 8608 11 May, 2013 [facility] [place] [facility] [address] [id number] [place] [address]- 2436 May, [facility] [place] [facility] [address] [id number] [place] [address]- 5983 May, [facility] [place] [facility] [address] [facility] [id number] [place] [address]- 6240 May, [facility] [place] [facility] [address] [facility] [id number] [place] [address]- 6803 May, [facility] [place] [facility] [address] [id number] [place] [address]- 3816 May, [facility] [place] [facility] [address] [facility] [id number] [place] [address]- 9389 Apr, [facility] [place] [facility] [address] [facility] [id number] [place] [address]- 3559 Apr, [facility] [place] [facility] [address] [facility] [id number] [place] [address]- 7869 Apr, [facility] [place] [facility] [address] [facility] [id number] [place] [address]- 0405 Apr, [facility] [place] [facility] [address] [id number] [place] [address]- 3354 Apr, [facility] [place] [facility] [address] [facility] [id number] [place] [address]- 8972 Apr, [facility] [place] [facility] [address] [facility] [id number] [place] [address]- 6573 Mar, [facility] [place] [facility] [address] [id number] [place] [address]- 3505 Mar, [facility] [place] [facility] [address] [id number] [place] [address]- 8316 Mar, [facility] [place] [facility] [address] [id number] [place] [address]- 6168 Mar, [facility] [place] [facility] [address] [id number] [place] [address]- 3474 Mar, [facility] [place] [facility] [address] [id number] [place] [address]- 3780 Mar, [facility] [place] [facility] [address] [id number] [place] [address]- 0617 Mar, [facility] [place] [facility] [address] [id number] [place] [address]- 0770 Mar, [facility] [place] [facility] [address] [id number] [place] [address]- 7315 Mar, [facility] [place] [facility] [address] [id number] [place] [address]- 8238 Mar, [facility] [place] [facility] [address] [id number] [place] [address]- 8195 Mar, [facility] [place] [facility] [address] [id number] [place] [address] Mar, [facility] [place] [facility] [address] [id number] [place] [address] Mar, [facility] [place] [facility] [address] [id number] [place] [address] Mar, [facility] [place] [facility] [address] [id number] [place] [address] Feb, [facility] [place] [facility] [address] [id number] [place] [address] Feb, [facility] [place] [facility] [address] [id number] [place] [address] Feb, [facility] [address] [id number] [place] [address] Feb, [facility] [place] [facility] [address] [id number] [place] [address] Feb, [facility] [address] [facility] [id number] [place] [address] Feb, [facility] [place] [facility] [address] [id number] [place] [address] Feb, [facility] [address] [id number] [place] [address] Feb, [facility] [place] [facility] [address] [id number] [place] [address] Feb, [facility] [place] [facility] [address] [facility] [id number] [place] [address] Feb, [facility] [place] [facility] [address] [id number], [place] [address] Feb, [facility] [place] [facility] [address] [id number] [place] [address] Feb, [facility] [place] [facility] [address] [facility] [id number], [place] [address] Feb, [facility] [place] [facility] [address] [id number], [place] [address] Feb, [facility] [place] [facility] [address] [id number], [place] [address] Feb, [facility] [place] [facility] [address] [id number], [place] [address] Feb, [facility] [place] [facility] [address] [id number], [place] [address] Dec, [facility] [place] [facility] [address] [facility] [id number], [place] [address] Dec, [facility] [place] [facility] [address] [id number] [place] [address] 16 Dec, 2012 [facility] [place] [facility] [address] [id number] [place] [address]- [address] 16 Dec, 2012 [facility] [place] [facility] [address] [id number] [place] [address]68 16 Dec, 2012 [facility] [place] [facility] [address] [id number] [place] [address] 16 Dec, 2012 [facility] [place] [facility] [address] [id number] [place] [address] 14 Dec, 2012 [facility] [place] [facility] [address] [id number] [place] [address]- [address] 14 Dec, 2012 [facility] [place] [facility] [address] [id number] [place] [address] 10 Dec, 2012 [facility] [place] [facility] [address] [id number] [place] [address] 10 Dec, 2012 [facility] [place] [facility] [address] [id number] [place] [address] 10 Dec, 2012 [facility] [place] [facility] [address] [id number] [place] [address] 10 Dec, 2012 [facility] [place] [facility] [address] [id number] [place] [address] 03 Dec, 2012 [facility] [place] [facility] [address] [id number] [place] [address]- [address] 25 Sep, 2012 [facility] [place] [facility] [address] [id number] [place] [address]- [address] 20 Sep, 2012 [facility] [place] [facility] [address] [id number] [place] [address]- [address]47 18 Sep, 2012 [facility] [place] [facility] [address] [id number] [place] [address] 16 Sep, 2012 [facility] [place] [facility] [address] [id number] [place] [address] 12 Nov, 2012 [facility] [place] [facility] [address] [id number] [place] [address]- [address] 11 Nov, 2012 [facility] [address] [id number] [place] [address]- [address] 05 Nov, 2012 [facility] [place] [facility] [address] [id number] [place] [address] Oct, [facility] [place] [facility] [address] [id number] [place] [address] Oct, [facility] [address] [id number] [place] [address] Sep, [facility] [place] [facility] [address] [id number] [place] [address]- [address] Sep, [facility] [address] [id number] [place] [address] Sep, [facility] [address] [id number] [place] [address]- [address] Sep, [facility] [address] [id number] [place] [address] Sep, [facility] [place] [facility] [address] [id number] [place] [address]- [address] Sep, [facility] [place] [facility] [address] [id number] [place] [address] Sep, [facility] [place] [facility] [address] [id number] [place] [address]- [address]84 Aug, [facility] [place] [facility] [address] [id number] [place] [address]- [address] Aug, [facility] [place] [facility] [address] [id number] [place] [address]- [address]6 16 Aug, 2012 [facility] [place] [facility] [address] [id number] [place] [address]- [address] Aug, [facility] [place] [facility] [address] [id number] [place] [address] 2546 Aug, [facility] [address] [id number] [place] [address] 2546 Aug, [facility] [place] [facility] [address] [id number] [place] [address]- [address] Aug, [facility] [address] [id number] [place] [address]- [address]46 Aug, [facility] [place] [facility] [address] [id number] [place] [address] 2546 July, [facility] [address] [id number] [place] [address]- [address] July, [facility] [address] [id number] [place] [address] 2546 July, [facility] [address] [id number] [place] [id number] July, [facility] [place] [facility] [address] [id number] [place] [address] July, [facility] [address] [id number] [place] [address] Jun, [facility] [place] [facility] [address] [id number] [place] [address] May, [facility] [address] [id number] [place] [address] May, [facility] [place] [facility] [address] [id number] [place] [address] May, [facility] [place] [facility] [address] [id number] [place] [address] Apr, [facility] [place] [facility] [address] [id number] [place] [address] Apr, [facility] [place] [facility] [address] [id number] [place] [address] Apr, [facility] [place] [facility] [address] [id number] [place] [address] 29 Mar, 2012 [facility] [address] [id number] [place] [address] Mar, [facility] [address] [id number] [place] [address] 28 Mar, 2012 [facility] [address] [id number] [place] [address] 9537 14 Mar, 2012 [facility] [address] [id number] [place] [address] 8457 10 Mar, 2012 [facility] [address] [id number] [place] [address] Mar, [facility] [address] [id number] [place] [address] Mar, [facility] [address] [id number] [place] [address] 115[address] Feb, [facility] [place] [facility] [address] [id number] [place] [address] 31 Feb, 2012 [facility] [address] [id number] [place] [address] Feb, [facility] [place] [facility] [address] [id number] [place] [address] 09[address] 18 Feb, 2012 [facility] [address] [id number] [place] [address] 17 Feb, 2012 [facility] [address] [id number] [place] [address] 17 Feb, 2012 [facility] [address] [id number] [place] [address] 29[address] Feb, [facility] [address] [id number] [place] [address] 25[address] Feb, [facility] [address] [id number] [place] [address] Jan, [facility] [place] [facility] [address] [id number] [place] [address] 4[address] Jan, [facility] [place] [facility] [address] [id number] [place] [address] Jan, [facility] [place] [facility] [address] [id number] [place] [address]797 Jan, [facility] [place] [facility] [address] [id number] [place] [address] Jan, [facility] [place] [facility] [address] [id number] [place] [address] 83[address] Jan, [facility] [place] [facility] [address] [id number] [place] [address] Jan, [facility] [place] [facility] [address] [id number] [place] [address] Jan, [facility] [place] [facility] [address] [id number] [place] [address] 8078 Jan, [facility] [place] [facility] [address] [id number] [place] [address] Jan, [facility] [place] [facility] [address] [id number] [place] [address] 2269 Jan, [facility] [place] [facility] [address] [id number] [place] [address] Jan, [facility] [place] [facility] [address] [id number] [address] Jan, [facility] [place] [facility] [address] [id number] [place] [address] 37[address] Jan, [facility] [place] [facility] [address] [id number] [place] [address] Jan, [facility] [place] [facility] [address] [id number] [place] [address] 60[address] Jan, [facility] [place] [facility] [address] [id number] [place] [address] 2610 17 Dec, 2011 [facility] [place] [facility] [address] [id number] [place] [address] 7534 17 Dec, 2011 [facility] [place] [facility] [address] [id number] [place] [address] 16 Dec, 2011 [facility] [place] [facility] [address] [id number] [place] [address]- 5746 16 Dec, 2011 [facility] [place] [facility] [address] [id number] [place] [address]- 2682 12 Dec, 2011 [facility] [place] [facility] [address] [id number] [place] [address]- 1682 12 Dec, 2011 [facility] [place] [facility] [address] [id number] [place] [address] Dec, [facility] [place] [facility] [address] [id number] [place] [address] 4[address] Dec, [facility] [place] [facility] [address] [id number] [place] [address]- 2428 08 Dec, 2011 [facility] [place] [facility] [address] [id number] [place] [address]- [address] 05 Dec, 2011 [facility] [place] [facility] [address] [id number] [place] [address] 8863 18 Nov, 2011 [facility] [place] [facility] [address] [id number] [place] [address]- 6323 13 Nov, 2011 [facility] [place] [facility] [address] [id number] [place] [address]- 6764 24 Oct, 2011 [facility] [place] [facility] [address] [id number] [place] [address]- 3398 Oct, [facility] [place] [facility] [address] [id number] [place] [address] Oct, [facility] [place] [facility] [address] [id number] [place] [address]- 3460 16 Oct, 2011 [facility] [place] [facility] [address] [id number] [place] [address]- 0697 Oct, [facility] [place] [facility] [address] [id number] [place] [address] Oct, [facility] [place] [facility] [address] [id number] [place] [address]- 4[address] Oct, [facility] [place] [facility] [address] [id number] [place] [address]- [address] Sep, [facility] [place] [facility] [address] [id number] [place] [address]- [address] Aug, [facility] [place] [facility] [address] [id number] [place] [address]- 7128 Aug, [facility] [place] [facility] [address] [id number] [place] [address]- 5689 Aug, [facility] [place] [facility] [address] [id number] [place] [address]- 0179 Aug, [facility] [place] [facility] [address] [id number] [place] [address]- 2287 Aug, [facility] [place] [facility] [address] [id number] [place] [address]- 3637 July, [facility] [place] [facility] [address] [id number] [place] [address]- 3177 July, [facility] [place] [facility] [address] [id number] [place] [address]- 8750 July, [facility] [place] [facility] [address] [id number] [place] [address]- 0787 Jun, [facility] [place] [facility] [address] [id number] [place] [address]- 5692 Jun, [facility] [place] [facility] [address] [id number] [place] [address]- 4714 Jun, [facility] [place] [facility] [address] [id number] [place] [address]- 1620 Jun, [facility] [place] [facility] [address] [id number] [place] [address]- 9058 30 May, 2011 [facility] [place] [facility] [address] [id number] [place] [address]- 3496 30 May, 2011 [facility] [place] [facility] [address] [id number] [place] [address]- 7026 29 May, 2011 [facility] [place] [facility] [address] [id number] [place] [address]- 6504 28 May, 2011 [facility] [place] [facility] [address] [id number] [place] [address]- 1047 May, [facility] [place] [facility] [address] [id number] [place] [address]- 8046 May, [facility] [place] [facility] [address] [id number] [place] [address]- 5950 May, [facility] [place] [facility] [address] [id number] [place] [address]- 0243 May, [facility] [place] [facility] [address] [id number] [place] [address]- 0762 May, [facility] [place] [facility] [address] [id number] [place] [address]- 6806 05 May, 2011 [facility] [place] [facility] [address] [id number] [place] [address]- 5766 May, [facility] [place] [facility] [address] [id number] [place] [address] 2546 May, [facility] [place] [facility] [address] [id number] [place] [address]- 5046 Mar, [facility] [place] [facility] [address] [id number] [place] [address]- 7186 Mar, [facility] [place] [facility] [address] [id number] [place] [address]- 8246 Feb, [facility] [place] [facility] [address] [id number] [place] [address]- 0070 20 Feb, 2011 [facility] [place] [facility] [address] [id number] [place] [address]- 7542 20 Feb, 2011 [facility] [place] [facility] [address] [id number] [place] [address]- 7736 15 Feb, 2011 [facility] [place] [facility] [address] [id number] [place] [address]- 1986 13 Feb, 2011 [facility] [place] [facility] [address] [id number] [place] [address]- 9969 13 Feb, 2011 [facility] [place] [facility] [address] [id number] [place] [address]- 8469 Feb, [facility] [place] [facility] [address] [id number] [place] [address]- 2268 28 Jan, 2011 [facility] [place] [facility] [address] [id number] [place] [address]- 3747 23 Jan, 2011 [facility] [place] [facility] [address] [id number] [place] [address]- 9862 Jan, [facility] [place] [facility] [address] [id number] [place] [address]- 0833 17 Jan, 2011 [facility] [place] [facility] [address] [id number] [place] [address]- 8144 Jan, [facility] [place] [facility] [address] [id number] [place] [address]- 9421 Jan, [facility] [place] [facility] [address] [id number] [place] [address]- 7827 Dec, [facility] [place] [facility] [address] [id number] [place] [address]- 8927 Dec, [facility] [place] [facility] [address] [id number] [place] [address]- 2148 Dec, [facility] [place] [facility] [address] [id number] [place] [address]- 3955 July, [facility] [place] [facility] [address] [id number] [place] [address]- 0398 July, [facility] [address] [id number] [place] [address] Feb, [facility] [place] [facility] [address] [id number] [place] [address] Jan, [facility] [place] [facility] [address] [id number] [place] [address], [place] [address]- 3453 Dec, [facility] [address] [id number] [place] [address]- 2506 Dec, [facility] [place] [facility] [address] [id number] [place] [address]- 7406 Sep, [facility] [address] [id number] [place] [address]- 6208 Aug, [facility] [address] [id number] [place] [address]- 0317 Jun, [facility] [address] [id number] [place] [address]- 4548 Jun, [facility] [address] [id number], [place] [address]- 0337 Jan, [facility] [place] [facility] [address] [id number] [place] [address]- 8876 Jan, [facility] [place] [facility] [address] [id number], [place] [address]- 6906 Jan, [facility] [place] [facility] [address] [id number] [place] [address]- 9539 Jan, [facility] [place] [facility] [address] [id number] [place] [address]- 0796 29 Dec, 2008 [facility] [place] [facility] [address] [id number] [address] Dec, [facility] [place] [facility] [address] [id number], [place] [address] 2546 Dec, [facility] [address] [facility] [id number], [place] [address] 2546 Nov, [facility] [address] [facility] [id number], [place] [address] 2546 July, [facility] [address] [facility] [id number], [place] [address] 2546 May, [facility] [address] [facility] [id number], [place] [address] 2546 Apr, [facility] [address] [facility] [id number], [place] [address] 2546 Feb, [facility] [address] [facility] [id number], [place] [address]- [address]16 Dec, IMMUNIZATIONS No Known Immunizations SOCIAL HISTORY Never Assessed REASON FOR VISIT Diabetes PLAN OF CARE Activity Details Follow Up 3 Months Reason:DM VITAL SIGNS Height 64 in 2017-12-06 Weight 190.5 lbs 2017-12-06 Temperature 98.3 degrees Fahrenheit 2017-12-06 Heart Rate 96 bpm 2017-12-06 Respiratory Rate 20 2017-12-06 BMI 32.70 kg/m2 2017-12-06 Blood pressure systolic 152 mmHg 2017-12-06 Blood pressure diastolic 74 mmHg 2017-12-06 MEDICATIONS Medication Instructions Dosage Frequency Start Date End Date Duration Status Metformin HCl 1000 MG Orally twice a day 1 tablet with a meal 12h Nov, 90 days Active NovoFine 32G X 6 MM subcutaneously 3 times a day as directed for use with Victoza and Novolog Pens 8h July, 90 days Active Simvastatin 80 MG Orally Once a day 1 tablet in the evening 24h Sep, 90 days Active Test strips Contour test strips 2 times a day test blood sugar 12h Aug, Active Victoza 18 MG/3ML Subcutaneous Once a day inject 1.8 ml 24h 90 days Active Aleve 220 MG Orally every 12 hrs 1 tablet with food or milk as needed 12h Nov, Active Melatonin 5 MG Orally Once a day 1 tablet at bedtime as needed with food 24h Active Celexa 40 MG Orally Once a day 1 tablet 24h May, 30 days Active Actos 45 MG Orally Once a day 1 tablet 24h Apr, 90 days Active Lamictal 200 MG Orally every evening 1 tablet May, 30 days Active Tizanidine HCl 4 MG Orally Once a day 1 tablet as needed at bedtime 24h July, 30 days Active Aspirin Adult Low Strength 81 MG Orally Once a day 1 tablet 24h Active NovoLog Mix 70/30 Flexpen (70-30) 100 UNIT/ML Subcutaneous 2 times a day Inject 120 units 12h Active Farxiga 10 MG Orally Once a day 1 tablet 24h Apr, 90 days Active Amaryl 4 MG Orally Once a day in AM 1 tablet with breakfast or the first main meal of the day Sep, 30 day(s) Active Migraine Relief 250-250-65 MG Orally Once a day 2 tablets 24h Active Toprol XL 25 mg take 1 tablet by Oral route 1 time per day take at hs May, Active Ativan 0.5 MG Orally Once a day, no early refills 1 tablet as needed Sep, Active RESULTS No Results PROCEDURES No Known [...]
--- OUTSIDE RECORDS SUMMARY | 2018-06-14 14:24 | XMS REPORT ---
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 Name Role Phone ARIAN US Unavailable PROBLEMS Type Condition ICD9-CM Code QCS53-FH Code Onset Dates Condition Status SNOMED Code Problem Type 2 diabetes mellitus with complication E11.8 Active 231471410 Problem Acute bilateral low back pain with right-sided sciatica M54.41 Active 747036673 Problem Hyperlipidemia, unspecified E78.5 Active 98219097 Problem Hypertriglyceridemia E78.1 Active 963501529 Problem Obesity, unspecified 278.00 Active 002665791 Problem Other chronic pain G89.29 Active 84244879 Problem Eye exam normal Z01.00 Active 820498942 Problem Post laminectomy syndrome M96.1 Active 82017276 Problem 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 Active 194172479 Problem New daily persistent headache G44.52 Active 472922278 Problem Lumbago with sciatica, left side M54.42 Active 686835457 Problem Type 2 diabetes mellitus with hyperglycemia E11.65 Active 56205046 Problem Extreme poverty Z59.5 Active 65672714 Problem 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 Active 84348632 Problem Hyperlipidemia 272.4 Active 75012055 Problem Bipolar disorder, in partial remission, most recent episode manic F31.73 Active 62841904 Problem Irritable bowel syndrome with diarrhea K58.0 Active 626230891 Problem Lumbar radiculopathy M54.16 Active 527631305 Problem Non compliance with medical treatment Z91.19 Active 4254949 Problem Bipolar 1 disorder F31.9 Active 994634605 Problem Diabetes E11.9 Active 783250656 Problem FDC current 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 Z79.891 Active [id number] ALLERGIES No Information ENCOUNTERS Encounter Location Date Diagnosis [facility] [address] [facility] [id number] [address] Mar, [facility] [id number] [place] [address] 91756- 6676 Dec, [facility] [address] [place] [id number] [place] [address] 66999- 5442 Nov, [facility] [id number] [place] [address] 94498- 4532 Nov, Hypertriglyceridemia E78.1 [place] [id number] [place] [address] 38460- 9474 Nov, Bipolar 1 disorder F31.9 ; 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 and Extreme poverty Z59.5 [place] [address] [id number] [place] [address] 55233- 5619 18 Nov, 2017 Type 2 diabetes mellitus with complication E11.8 [place] [address] [id number] [place] [address] 11748- 4348 18 Nov, 2017 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 and Bipolar disorder, in partial remission, most recent episode manic F31.73 [place] [address] [id number] [place] [address] 44244- 3804 12 Nov, 2017 Type 2 diabetes mellitus with complication E11.8 [place] [id number] [place] [address] 58751- 8039 11 Nov, 2017 Bipolar 1 disorder F31.9 ; 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 and Extreme poverty Z59.5 [place] [address] [id number] [place] [address] 08247- 9199 10 Nov, 2017 Type 2 diabetes mellitus with complication E11.8 ; Pain of left upper arm M79.622 ; Pain in right upper arm M79.621 ; Hyperglycemia R73.9 ; Lumbago with sciatica, left side M54.42 and Other chronic pain G89.29 [place] [address] [place] [address] 07463- 7899 Oct, Bipolar 1 disorder F31.9 ; 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 and Extreme poverty Z59.5 [place] [address] [place] [address] 34472- 0643 Oct, Type 2 diabetes mellitus with hyperglycemia E11.65 ; 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 and Other acute gastritis without hemorrhage K29.00 [place] [address] [address] [id number] [place] [address] 34160- 2986 Oct, Bipolar 1 disorder F31.9 ; 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 and Extreme poverty Z59.5 [place] [address] [place] [id number] [place] [address] 00954- 3423 Sep, Diarrhea, unspecified R19.7 and Vomiting, unspecified R11.10 [place] [address] [place] [id number] [place] [address] 11201- 4236 Aug, Type 2 diabetes mellitus with complication E11.8 [place] [id number] [place] [address] 35506- 6004 Aug, [place] [address] [id number] [place] [address] 04198- 7212 Aug, Bipolar 1 disorder F31.9 ; 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 and Extreme poverty Z59.5 [place] [address] [id number] [place] [address] 71162- 4144 Aug, 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 and Bipolar disorder, in partial remission, most recent episode manic F31.73 [place] [address] [id number] [place] [address] 95576- 8001 Aug, Bipolar 1 disorder F31.9 [place] [address] [address] [id number] [place] [address] 66046- 6965 Aug, [place] [address] [id number] [place] [address] 93972- 7217 Aug, [place] [address] [id number] [place] [address] 13142- 5711 Aug, Bipolar 1 disorder F31.9 ; 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 and Extreme poverty Z59.5 [place] [id number] [place] [address] 36106- 8786 July, Type 2 diabetes mellitus with complication E11.8 [place] [address] [place] [id number] [place] [address]478 July, Bipolar 1 disorder F31.9 ; 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 and Extreme poverty Z59.5 [place] [address] [id number] [place] [address] 03636- 0031 Jun, Bipolar 1 disorder F31.9 ; 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 and Extreme poverty Z59.5 [place] [address] [place] [id number] [place] [address] 63078- 2775 Jun, Bipolar 1 disorder F31.9 ; 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 and Extreme poverty Z59.5 [place] [address] [id number] [place] [address] 85828- 6490 Jun, Bipolar 1 disorder F31.9 ; 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 and Extreme poverty Z59.5 [place] [address] [place] [address] 02988- 7191 May, Urinary tract infection without hematuria, site unspecified N39.0 [place] [address] [place] [id number] [place] [address] 71810- 9525 May, Bipolar 1 disorder F31.9 ; 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 and Extreme poverty Z59.5 [place] [address] [place] [address] 21129- 0129 Apr, Diabetes E11.9 and Breast cancer screening Z12.31 [place] [address] [id number] [place] [address] 70338- 9386 Apr, Bipolar 1 disorder F31.9 and 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 [place] [address] [place] [address] 78592- 6746 Mar, Bipolar 1 disorder F31.9 ; 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 and Extreme poverty Z59.5 [place] [address] [id number] [place] [address] 47000- 3457 Mar, New daily persistent headache G44.52 ; Leg pain 729.5 and History of carpal tunnel release Z98.890 [place] [address] [id number] [place] [address] 25419- 1093 Mar, Hyperlipidemia, unspecified E78.5 [place] [address] 00058- 7987 Mar, Bipolar 1 disorder F31.9 ; 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 and Extreme poverty Z59.5 [place] [address] 08658- 5471 Feb, Bipolar 1 disorder F31.9 ; 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 and Extreme poverty Z59.5 [place] [address] 81098- 7855 Feb, Diabetes E11.9 [place] [address] 62480- 9966 Feb, Viral syndrome B34.[address] 22604- 4258 Jan, Other viral agents as the cause of diseases classified elsewhere B97.89 and Acute upper respiratory infection, unspecified J06.9 [place] [address] [id number] [place] [address] 87741- 9254 Jan, Bipolar 1 disorder F31.9 and 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 [place] [address] [id number] [place] [address] 49309- 3242 Jan, Bipolar 1 disorder F31.9 ; 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 and Extreme poverty Z59.5 [place] [address] [address] [id number] [place] [address] 91349- 4418 Dec, Diabetes E11.9 [place] [address] [place] [id number]- 2546 Dec, Diabetes E11.9 and Encounter for immunization Z23 [facility] [id number] [place] [address] 23700- 8040 Dec, Bipolar 1 disorder F31.9 ; 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 and Extreme poverty Z59.5 [facility] [id number] [place] [address] 46325- 1814 Dec, Back pain M54.9 [facility] [id number] [place] [address] 82327- 3787 Nov, [place] [address] [address] [id number] [place] [address] 69510- 7365 Nov, Bipolar 1 disorder F31.9 ; 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 and Extreme poverty Z59.5 [place] [address] [address] [id number] [place] [address] 47335- 8427 Nov, Bipolar 1 disorder F31.9 ; 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 and Extreme poverty Z59.5 [place] [id number] [place] [address] 84974- 6835 Oct, 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 and Bipolar 1 disorder F31.9 [facility] [id number] [place] [address] 61945- 7693 Oct, Bipolar 1 disorder F31.9 ; 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 and Extreme poverty Z59.5 [place] [id number] [place] [address] 69244- 7105 Oct, Back pain M54.9 [facility] [id number] [place] [address] 51545- 0166 Oct, 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 and Type 2 diabetes mellitus with complication E11.8 [facility] [address] [address]- 7326 Sep, Bipolar 1 disorder F31.9 ; 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 and Extreme poverty Z59.5 [place] [address] [address] 7011 Sep, 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 and Bipolar 1 disorder F31.9 [facility] [id number] [place] [address] 56006- 6919 Sep, Bipolar 1 disorder F31.9 ; 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 and Extreme poverty Z59.5 [place] [address] [place] [id number] [place] [address] 80334- 8537 Aug, Diabetes E11.9 ; Hyperlipidemia, unspecified E78.5 and Lumbar radiculopathy M54.16 [place] [address] [place] [id number] [place] [address] 45996- 9633 Aug, Bipolar 1 disorder F31.9 ; 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 and Extreme poverty Z59.5 [place] [address] [place] [id number] [place] [address] 72306- 4909 Aug, [place] [address] [place] [id number] [place] [address] 72184- 1795 Aug, [place] [address] [place] [id number] [place] [address] 70947- 1236 Aug, [facility] [id number] [place] [address] 74500- 7907 July, [place] [address] [place] [id number] [place] [address] 49299- 6369 July, Acute bilateral low back pain with right-sided sciatica M54.41 [place] [address] [place] [id number] [place] [address] 99856- 6884 July, Bipolar 1 disorder F31.9 ; 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 and Extreme poverty Z59.5 [facility] [id number] [place] [address] 63987- 7694 July, Back pain M54.9 and Diabetes E11.9 [facility] [id number] [place] [address] 03661- 6166 Jun, Bipolar 1 disorder F31.9 ; 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 and Extreme poverty Z59.5 [place] [address] [place] [id number] [place] [address] 8886 Jun, Bipolar 1 disorder F31.9 ; 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 and Extreme poverty Z59.5 [place] [address] 82972- 9862 May, Visit for pelvic exam Z01.419 ; Acute vaginitis N76.0 and Diabetes E11.9 [place] [address] 96556- 1133 May, Bipolar 1 disorder F31.9 ; 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 and Extreme poverty Z59.5 [place] [address] 13010- 2021 May, [place] [address] 47204- 5178 May, [place] [address] 10112- 8942 May, Bipolar 1 disorder F31.9 ; 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 and Extreme poverty Z59.5 [place] [address] [place] [id number] [place] [address] 35497- 3770 May, Hyperlipidemia, unspecified E78.5 [place] [address] [place] [id number] [place] [address] 03740- 9859 Apr, Breast cancer screening Z12.39 [place] [address] [place] [id number] [place] [address] 54417- 1107 Mar, [place] [address] 03029- 4282 Mar, Bipolar disorder, current episode mixed, unspecified F31.60 [place] [address] 04002- 0263 Mar, Bipolar 1 disorder F31.9 ; 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 and Extreme poverty Z59.5 [place] [address] 88686- 2314 Feb, Acute nasopharyngitis J00 [place] [address] 96670- 3400 Feb, Dental examination Z01.20 [place] [address] 14328- 4269 Feb, Dental cavities K02.9 and Chronic periodontitis, unspecified K05.30 [place] [address] 47369- 4592 Feb, Low back pain M54.5 and Extreme poverty Z59.5 [place] [address] 12761- 5933 Feb, [place] [address] 99997- 0414 Feb, Routine gynecological examination V72.31 ; Breast cancer screening Z12.39 and Herpes simplex type 1 infection B00.9 [place] [address] 12172- 7741 Feb, Diabetes E11.9 [place] [address] 16513- 5212 Feb, Encounter for dental examination and cleaning without abnormal findings Z01.20 [place] [address] 42904- 5473 Jan, Hyperlipidemia, unspecified E78.5 [place] [address] 38552- 5013 Jan, Bipolar 1 disorder F31.9 ; 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 and Extreme poverty Z59.5 [place] [address] 40426- 5864 Jan, Diabetes E11.9 [place] [address] [place] [id number] [place] [address] 40638- 8644 17 Jan, 2016 Diabetes E11.9 [place] [address] 78344- 8713 14 Dec, 2015 Bipolar 1 disorder F31.9 ; 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 and Extreme poverty Z59.5 [place] [address] 63779- 4783 13 Dec, 2015 Bipolar disorder, current episode mixed, unspecified F31.60 and 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 [place] [address] [place] [id number] [place] [address] 62833- 0363 16 Nov, 2015 Bipolar 1 disorder F31.9 ; 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 ; Extreme poverty Z59.5 and Non compliance with medical treatment Z91.19 [place] [address] [place] [id number] [place] [address] 18284- 0810 Oct, [place] [address] 39758- 7650 Oct, Dental caries K02.9 [place] [address] 03519- 2487 Oct, Low back pain M54.5 and Other chronic pain G89.29 [place] [address] [place] [id number] [place] [address] 78819- 3636 Oct, Bipolar 1 disorder F31.9 ; 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 ; Extreme poverty Z59.5 and Non compliance with medical treatment Z91.19 [place] [address] [place] [id number] [place] [address] 22783- 3680 Oct, [place] [address] 55673- 7498 Oct, [place] [address] [place] [id number] [place] [address] 17671- 9963 Oct, Dental examination Z01.20 [place] [address] [place] [address]- 2581 Oct, Bipolar 1 disorder F31.9 ; 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 ; Extreme poverty Z59.5 and Non compliance with medical treatment Z91.19 [place] [address] [place] [address] 36893- 8781 Oct, [place] [address] [place] [id number] [place] [address] 82737- 5639 Sep, Type 2 diabetes mellitus with complication E11.8 [place] [address] [place] [id number] [place] [address] 96642- 7825 Sep, Bipolar disorder, current episode mixed, unspecified F31.60 [place] [address] [place] [id number] [place] [address] 85611- 6272 Sep, Bipolar disorder, current episode mixed, unspecified F31.60 [place] [address] [place] [id number] [place] [address] 05444- 8541 Sep, Bipolar disorder, in partial remission, most recent episode manic F31.73 ; 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 ; Extreme poverty Z59.5 and Non compliance with medical treatment Z91.19 [place] [address] [place] [address] 77478- 3653 Aug, Bipolar disorder, in partial remission, most recent episode manic F31.73 ; 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 ; Extreme poverty Z59.5 and Non compliance with medical treatment Z91.19 [place] [address] [place] [address] 38675- 8339 Aug, Bipolar disorder, in partial remission, most recent episode manic F31.73 ; 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 ; Extreme poverty Z59.5 and Non compliance with medical treatment Z91.19 [place] [address] [place] [address] 89577- 1719 Aug, [place] [address] [place] [id number] [place] [address] 50151- 7162 July, Bipolar disorder, in partial remission, most recent episode manic F31.73 ; 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 ; Extreme poverty Z59.5 and Non compliance with medical treatment Z91.19 [place] [address] [place] [address] 59937- 6652 July, Bipolar disorder, current episode mixed, unspecified F31.60 [place] [address] [place] [id number] [place] [address] 93787- 0516 July, Bipolar disorder, in partial remission, most recent episode manic F31.73 ; 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 ; Extreme poverty Z59.5 and Non compliance with medical treatment Z91.19 [place] [address] [place] [id number] [place] [address] 13166- 6945 July, 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 and Chronic pain G89.29 [place] [address] [place] [id number] [place] [address] 48867- 5473 Jun, 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 and Bipolar 1 disorder F31.9 [place] [address] [place] [id number] [place] [address] 04584- 7213 Jun, [place] [address] [place] [id number] [place] [address] 40787- 1355 Jun, [place] [address] [place] [id number] [place] [address] 43217- 7851 Jun, [place] [address] [place] [id number] [place] [address] 68980- 4146 Jun, Bipolar disorder, in partial remission, most recent episode manic F31.73 ; 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 and Non compliance with medical treatment Z91.19 [place] [address] [place] [id number] [place] [address] 73245- 9812 May, Bipolar disorder, in partial remission, most recent episode manic F31.73 ; 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 and Non compliance with medical treatment Z91.19 [place] [address] [place] [id number] [place] [address] 50904- 6224 May, Bipolar disorder, in partial remission, most recent episode manic F31.73 [place] [address] 25766- 8924 May, Diabetes E11.9 and Chronic pain G89.29 [place] [address] 42767- 4422 May, [place] [address] 00242- 9920 May, Bipolar disorder, in partial remission, most recent episode manic F31.73 ; Non compliance with medical treatment Z91.19 and 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 [place] [address] [place] [id number] [place] [address] 07104- 7590 May, Type 2 diabetes mellitus with complication E11.8 and Back pain M54.[address] 12482- 0050 May, Bipolar disorder, in partial remission, most recent episode manic F31.73 and 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 [place] [address] 68353- 2307 Apr, [place] [address] [place] [id number] [place] [address] 13533- 1716 Apr, [place] [address] [place] [id number] [place] [address] 34785- 9277 Apr, [address] 43924- 8578 Apr, Diabetes E11.9 ; Irritable bowel syndrome with diarrhea K58.0 and Lumbar radiculopathy M54.16 [place] [address] [place] [id number] [place] [address] 56338- 2776 Apr, Breast screening Z12.[address] 52927- 6897 Apr, Bipolar disorder, in partial remission, most recent episode manic F31.73 ; Non compliance with medical treatment Z91.19 and 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 [place] [address] [place] [id number] [place] [address] 29110- 0787 Mar, Edema, unspecified type R60.9 and Type 2 diabetes mellitus with complication E11.8 [place] [address]87219- 1337 Mar, Bipolar disorder, in partial remission, most recent episode manic F31.73 ; Non compliance with medical treatment Z91.19 ; 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 and Extreme poverty Z59.5 [place] [address] [place] [id number] [place] [address] 55447- 7829 Mar, Bipolar disorder, current episode mixed, unspecified F31.60 ; 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 ; Extreme poverty Z59.5 and Generalized anxiety disorder F41.1 [place] [address] 97875- 5761 Mar, Bipolar disorder, in partial remission, most recent episode manic F31.73 ; 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 and Extreme poverty Z59.5 [place] [address] [place] [id number] [place] [address] 54121- 1063 Feb, Bipolar disorder, in partial remission, most recent episode manic F31.73 ; 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 and Extreme poverty Z59.5 [place] [address] [place] [id number] [place] [address] 87294- 4985 Feb, Bipolar disorder, in partial remission, most recent episode manic F31.73 ; 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 and Extreme poverty Z59.5 [place] [address] [place] [id number] [place] [address] 26026- 1420 Feb, [place] [address] [place] [id number] [place] [address] 45881- 3458 Jan, Type 2 diabetes mellitus with complication E11.8 and Petechiae R23.3 [place] [address] [place] [id number] [place] [address] 59634- 0799 Jan, Type 2 diabetes mellitus with complication E11.8 ; Edema, unspecified R60.9 ; Petechiae R23.3 and Diabetes E11.9 [place] [id number] [place] [address] 24056- 9606 Jan, Bipolar disorder, in partial remission, most recent episode manic F31.73 ; 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 and Extreme poverty Z59.5 [place] [address] [place] [id number] [place] [address] 80428- 3970 Jan, Bipolar disorder, in partial remission, most recent episode manic F31.73 ; 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 and Extreme poverty Z59.5 [place] [address] [place] [id number] [place] [address] 27025- 3178 Dec, Bipolar disorder, in partial remission, most recent episode manic F31.73 [place] [address] [place] [id number] [place] [address] 26941- 0455 Dec, Edema, due to unspecified malnutrition type, unspecified edema R60.9 and Essential hypertension [id number] [place] [address]99- 3697 Dec, Bipolar disorder, in partial remission, most recent episode manic F31.73 [id number] [place] [address] 9[address]13- 0485 Nov, Bipolar I disorder, most recent episode (or current) mixed, unspecified 296.60 [id number] [place] [address] 36757- 9042 24 Nov, 2014 Stress incontinence, female 625.6 ; Back pain 724.5 and Leg pain 729.5 [id number] [place] [address] 25632- 3910 18 Nov, 2014 Generalized anxiety disorder 300.02 and Bipolar II disorder 296.89 [id number] [id number] [address] Nov, Bipolar I disorder, most recent episode (or current) mixed, unspecified 296.60 [facility] [address], [place] [address] 4947 Oct, [facility] [address], [place] [address] 4631 Oct, [facility] [id number], [place] [address] 6611 Oct, [facility] [address], [place] [address]- 4118 Oct, Bipolar I disorder, most recent episode (or current) mixed, unspecified 296.60 [facility] [address], [place] [address]- 1478 Sep, Diabetes 250.00 [facility] [id number], [place] [address] 6360 Sep, Bipolar I disorder, most recent episode (or current) mixed, unspecified 296.60 [facility] [address], [place] [address]- 2951 Sep, [facility] [address], [place] [address]- 0467 Sep, [facility] [address], [place] [address]- 2789 Sep, Bipolar I disorder, most recent episode (or current) mixed, unspecified 296.60 [facility] [id number] [address]- 9240 Sep, Bipolar I disorder, most recent episode (or current) mixed, unspecified 296.60 [facility] [id number] 0710 Sep, [facility] [id number], [place] [address]- 1203 Sep, Anxiety 300.00 ; Diabetes 250.00 and Hyperlipidemia 272.4 [facility] [address], [place] [address]- 7777 Aug, [facility] [id number] [place] [address] 543865- 3485 Aug, [facility] [address], [place] [address]- 6643 Aug, [facility] [id number] [place] [address] 697508- 6576 Aug, Bipolar I disorder, most recent episode (or current) mixed, unspecified 296.60 [facility] [id number] [place] [address] 977186- 9474 Aug, Generalized anxiety disorder 300.02 and Bipolar II disorder 296.89 [facility] [id number] [place] [address] 62330- 6905 July, Bipolar I disorder, most recent episode (or current) mixed, unspecified 296.60 [facility] [address], [place] [address]- 1611 July, Cough 786.2 [facility] [id number] [place] [address] 01508- 2100 July, Bipolar I disorder, most recent episode (or current) mixed, unspecified 296.60 [facility] [address], [place] [address]- 0594 Jun, Diabetes 250.00 [facility] [address], [place] [address]- 6494 Jun, [facility] [address], [place] [address]- 4094 Jun, [facility] [id number] 7636 May, [facility] [id number] 9250 May, [facility] [place] [facility] [address] [id number] [place] [address]- 8777 May, [facility] [place] [facility] [address] [id number] [place] [address]- 4336 May, [facility] [place] [facility] [address] [id number] [place] [address]- 8123 May, [facility] [place] [facility] [address] [id number] [place] [address]- 3998 May, [facility] [place] [facility] [address] [id number] [place] [address]- 0525 Apr, [facility] [place] [facility] [address] [id number] [place] [address]- 7085 Apr, [facility] [place] [facility] [address] [id number] [place] [address]- 0797 Apr, [facility] [place] [facility] [address] [id number] [place] [address]- 3409 Apr, [facility] [place] [facility] [address] [id number] [place] [address]- 7564 Apr, [facility] [place] [facility] [address] [id number] [place] [address]- 5978 Apr, [facility] [place] [facility] [address] [id number] [place] [address]- 8648 Apr, [facility] [place] [facility] [address] [id number] [place] [address]- 0079 Apr, [facility] [place] [facility] [address] [id number] [place] [address]- 6996 Mar, [facility] [place] [facility] [address] [id number] [place] [address]- 6210 Mar, [facility] [place] [facility] [address] [facility] [id number] [place] [address]- 4928 Mar, [facility] [place] [facility] [address] [id number] [place] [address]- 8232 Mar, [facility] [address] [id number] [place] [address]- 4578 Mar, [facility] [place] [facility] [address] [id number] [place] [address]- 5396 Mar, [facility] [address] [id number] [place] [address]- 3924 Mar, [facility] [place] [facility] [address] [id number] [place] [address]- 5769 Mar, [facility] [address] [id number] [place] 1093 Feb, [facility] [address] [id number] [place] [address]- 7877 Feb, [facility] [address] [id number] [place] [address]- 0515 Feb, [facility] [address] [id number] [place] [address]- 9034 Feb, [facility] [place] [facility] [address] [id number] [place] [address]- 9364 Feb, [facility] [address] [id number] [place] [address]- 8431 Feb, [facility] [place] [facility] [address] [id number] [place] [address]- 4977 Feb, [facility] [place] [facility] [address] [id number] [place] [address]- 0054 Feb, [facility] [place] [facility] [address] [id number] [place] [address]- 5118 Feb, [facility] [place] [facility] [address] [id number] [place] [address]- 0476 Feb, [facility] [place] [facility] [address] [id number] [place] [address]- 8572 Jan, [facility] [place] [facility] [address] [id number] [place] [address]- 7230 Jan, [facility] [place] [facility] [address] [id number] [place] [address]- 1479 Jan, [facility] [place] [facility] [address] [id number] [place] [address]- 4477 Jan, [facility] [place] [facility] [address] [id number] [place] [address]- 0230 Jan, [facility] [place] [facility] [address] [id number] [place] [address]- 4565 Jan, [facility] [place] [facility] [address] [id number] [place] [address]- 3105 Jan, [facility] [place] [facility] [address] [id number] [place] [address]- 1725 Jan, [facility] [place] [facility] [address] [id number] [place] [address]- 6205 Jan, [facility] [place] [facility] [address] [id number] [place] [address]- 6519 Jan, [facility] [place] [facility] [address] [id number], [place] [address]- 4743 Jan, [facility] [place] [facility] [address] [id number], [place] [address]- 1154 Jan, [facility] [place] [facility] [address] [id number], [place] [address]- 2545 Jan, [facility] [place] [facility] [address] [id number] [place] [address]- 1477 Jan, [facility] [place] [facility] [address] [id number], [place] [address]- 8943 Jan, [facility] [place] [facility] [address] [id number] [place] [address]- 7934 Dec, [facility] [place] [facility] [address] [id number] [place] [address]- 5830 Dec, 2013 [facility] [place] [facility] [address] [id number] [place] [address]- 4108 16 Dec, 2013 [facility] [place] [facility] [address] [id number] [place] [address]- 2494 16 Dec, 2013 [facility] [place] [facility] [address] [id number] [place] [address]- 2777 09 Dec, 2013 [facility] [place] [facility] [address] [id number] [place] [address]- 5520 09 Dec, 2013 [facility] [place] [facility] [address] [id number] [place] [address]- 9975 Dec, 2013 [facility] [place] [facility] [address] [id number] [place] [address]- 3971 07 Dec, 2013 [facility] [place] [facility] [address] [id number] [place] [address]- 6515 25 Sep, 2013 [facility] [place] [facility] [address] [id number] [place] [address]- 1907 25 Sep, 2013 [facility] [place] [facility] [address] [id number] [place] [address]- 3804 10 Sep, 2013 [facility] [place] [facility] [address] [facility] [id number] [place] [address]- 9581 10 Sep, 2013 [facility] [place] [facility] [address] [id number] [place] [address]- 0732 08 Sep, 2013 [facility] [place] [facility] [address] [id number], [place] [address]- 2544 08 Sep, 2013 [facility] [place] [facility] [address] [id number] [place] [address]- 2541 08 Sep, 2013 [facility] [place] [facility] [address] [id number] [place] [address]- 2541 08 Sep, 2013 [facility] [place] [facility] [address] [id number] [place] [address]- 6311 08 Sep, 2013 [facility] [place] [facility] [address] [id number] [place] [address]- 2085 08 Nov, 2013 [facility] [place] [facility] [address] [id number] [place] [address]- 0035 04 Nov, 2013 [facility] [place] [facility] [address] [id number] [place] [address]- 5581 04 Nov, 2013 [facility] [place] [facility] [address] [id number] [place] [address]- 8030 03 Nov, 2013 [facility] [place] [facility] [address] [id number] [place] [address]- 7484 02 Nov, 2013 [facility] [place] [facility] [address] [id number] [place] [address]- 7882 Nov, 2013 [facility] [place] [facility] [address] [id number] [place] [address]- 0824 Oct, [facility] [place] [facility] [address] [id number] [place] [address]- 1276 Oct, [facility] [place] [facility] [address] [id number] [place] [address]- 5225 Oct, [facility] [place] [facility] [address] [id number] [place] [address]- 6918 Oct, [facility] [place] [facility] [address] [id number] [place] [address]- 4870 Oct, [facility] [place] [facility] [address] [id number] [place] [address]- 4153 Oct, [facility] [place] [facility] [address] [id number] [place] [address]- 8506 Oct, [facility] [place] [facility] [address] [id number] [place] [address]- 2557 Oct, [facility] [place] [facility] [address] [id number] [place] [address]- 7744 Oct, [facility] [place] [facility] [address] [id number] [place] [address]- 2539 Oct, [facility] [place] [facility] [address] [id number] [place] [address]- 7065 Oct, [facility] [place] [facility] [address] [id number] [place] [address]- 7199 Oct, [facility] [place] [facility] [address] [id number] [place] [address]- 7709 Oct, [facility] [place] [facility] [address] [id number] [place] [address]- 0796 Oct, [facility] [place] [facility] [address] [id number] [place] [address]- 3528 Sep, [facility] [place] [facility] [address] [id number] [place] [address]- 1148 Sep, [facility] [place] [facility] [address] [id number] [place] [address]- 4040 Sep, [facility] [place] [facility] [address] [id number] [place] [address]- 5203 Sep, [facility] [place] [facility] [address] [id number] [place] [address]- 2903 Sep, [facility] [place] [facility] [address] [id number] [place] [address]- 3531 Sep, [facility] [place] [facility] [address] [id number] [place] [address]- 4326 Sep, [facility] [place] [facility] [address] [id number] [place] [address]- 0604 Sep, [facility] [place] [facility] [address] [id number] [place] [address]- 5283 Aug, [facility] [place] [facility] [address] [id number] [place] [address]- 7733 Aug, [facility] [place] [facility] [address] [id number] [place] [address]- 9468 Aug, [facility] [place] [facility] [address] [id number] [place] [address]- 9623 Aug, [facility] [address] [id number] [place] [address]- 1084 Aug, [facility] [place] [facility] [address] [id number] [place] [address]- 6422 Aug, [facility] [address] [id number] [place] [address]- 1275 Aug, [facility] [place] [facility] [address] [id number] [place] [address]- 4525 Aug, [facility] [address] [id number] [place] [address]- 6214 July, [facility] [address] [id number] [place] [address]- 2354 July, [facility] [address] [id number] [place] [address]- 3322 July, [facility] [address] [id number] [place] [address]- 7361 July, [facility] [place] [facility] [address] [id number] [place] [address]- 4540 July, [facility] [address] [id number] [place] [address]- 3842 July, [facility] [place] [facility] [address] [id number] [place] [address]- 0596 July, [facility] [place] [facility] [address] [id number] [place] [address]- 4440 July, [facility] [place] [facility] [address] [id number] [place] [address]- 8377 Jun, [facility] [place] [facility] [address] [id number] [place] [address]- 2817 Jun, [facility] [place] [facility] [address] [id number] [place] [address]- 9775 Jun, [facility] [place] [facility] [address] [id number] [place] [address]- 2282 Jun, [facility] [place] [facility] [address] [id number] [place] [address]- 9934 Jun, [facility] [place] [facility] [address] [id number] [place]- 7501 Jun, [facility] [place] [facility] [address] [id number] [place] [address]- 5214 Jun, [facility] [place] [facility] [address] [id number] [place] [address]- 0418 Jun, [facility] [place] [facility] [address] [id number] [place] [address]- 0597 Jun, [facility] [place] [facility] [address] [id number] [place] [address]- 5493 Jun, [facility] [place] [facility] [address] [id number] [place] [address]- 6028 Jun, [facility] [place] [facility] [address] [id number] [place] [address]- 8774 Jun, [facility] [place] [facility] [address] [id number] [place] [address]- 4862 May, [facility] [place] [facility] [address] [id number] [place] [address]- 1877 May, [facility] [place] [facility] [address] [id number] [place] [address]- 0314 May, [facility] [place] [facility] [address] [id number] [place] [address]- 8935 May, [facility] [place] [facility] [address] [id number] [place] [address]- 4494 May, [facility] [place] [facility] [address] [id number] [place] 1408 May, [facility] [place] [facility] [address] [id number] [place] [address]- 1437 May, [facility] [place] [facility] [address] [id number] [place] [address]- 0913 May, [facility] [place] [facility] [address] [id number] [place] [address]- 8562 May, [facility] [place] [facility] [address] [facility] [id number] [place] [address]- 3090 May, [facility] [place] [facility] [address] [id number] [place] [address]- 9172 May, [facility] [place] [facility] [address] [id number] [place] [address]- 6879 May, [facility] [place] [facility] [address] [facility] [id number] [place] [address]- 3462 May, [facility] [place] [facility] [address] [facility] [id number] [place] [address]- 3779 May, [facility] [place] [facility] [address] [facility] [id number] [place] [address]- 4354 Apr, [facility] [place] [facility] [address] [facility] [id number] [place] [address]- 9427 Apr, [facility] [place] [facility] [address] [facility] [id number] [place] [address]- 1343 Apr, [facility] [place] [facility] [address] [facility] [id number] [place] [address]- 8608 Apr, [facility] [place] [facility] [address] [facility] [id number] [place] [address]- 4100 Apr, [facility] [place] [facility] [address] [id number] [place] [address]- 3411 Apr, [facility] [place] [facility] [address] [facility] [id number] [place] [address]- 5377 Mar, [facility] [place] [facility] [address] [id number] [place] [address]- 9761 Mar, [facility] [place] [facility] [address] [id number] [place] [address]- 7539 Mar, [facility] [address] [id number] [place] [address]- 4637 Mar, [facility] [place] [facility] [address] [id number] [place] [address]- 5408 Mar, [facility] [address] [id number] [place] [address]- 9874 Mar, [facility] [address] [id number] [place] [address]- 9104 Mar, [facility] [place] [facility] [address] [id number] [place] [address]- 8942 Mar, [facility] [address] [id number] [place] [address]- 4124 Mar, [facility] [address] [id number] [place] [address]- 2291 Mar, [facility] [place] [facility] [address] [id number] [place] [address]- 6394 Mar, [facility] [place] [facility] [address] [id number] [place] [address]- 3067 Mar, [facility] [place] [facility] [address] [id number] [place] [address]- 2575 Mar, [facility] [place] [facility] [address] [id number] [place] [address]- 0115 Mar, [facility] [place] [facility] [address] [id number] [place] [address]- 6735 Feb, [facility] [place] [facility] [address] [id number] [place] [address]- 4946 Feb, [facility] [place] [facility] [address] [id number] [place] [address]- 7337 Feb, [facility] [place] [facility] [address] [id number] [place] [address] Feb, [facility] [place] [facility] [address] [id number] [place] [address] Feb, [facility] [place] [facility] [address] [id number] [place] [address] Feb, [facility] [place] [facility] [address] [id number] [place] [address] Feb, [facility] [place] [facility] [address] [id number] [place] [address]263 Feb, [facility] [place] [facility] [address] [id number] [place] [address] Feb, [facility] [place] [facility] [address] [id number] [place] [address] Feb, [facility] [place] [facility] [address] [id number] [place] [address] Feb, [facility] [place] [facility] [address] [id number] [place] [address] Feb, [facility] [place] [facility] [address] [id number] [place] [address] Feb, [facility] [place] [facility] [address] [id number] [place] [address] Feb, [facility] [place] [facility] [address] [id number], [place] [address] Feb, [facility] [place] [facility] [address] [id number], [place] [address] Feb, [facility] [place] [facility] [address] [id number] [place] [address] Dec, [facility] [place] [facility] [address] [id number] [place] [address]25 24 Dec, 2012 [facility] [place] [facility] [address] [id number] [place] [address] 39[address] 16 Dec, 2012 [facility] [place] [facility] [address] [id number] [place] [address] 16 Dec, 2012 [facility] [address] [id number] [place] [address] 16 Dec, 2012 [facility] [place] [facility] [address] [id number] [place] [address]- 46[address] 16 Dec, 2012 [facility] [address] [id number] [place] [address] 14 Dec, 2012 [facility] [place] [facility] [address] [id number] [place] [address] 14 Dec, 2012 [facility] [address] [id number] [place] [address] 3610 10 Dec, 2012 [facility] [place] [facility] [address] [id number] [place] [address]- [address]83 10 Dec, 2012 [facility] [place] [facility] [address] [id number] [place] [address]- 4432 10 Dec, 2012 [facility] [address] [id number] [place] [address]99 10 Dec, 2012 [facility] [place] [facility] [address] [id number] [place] [address]661 03 Dec, 2012 [facility] [address] [id number] [place] [address] 25 Sep, 2012 [facility] [place] [facility] [address] [id number] [place] [address]47 20 Sep, 2012 [facility] [place] [facility] [address] [id number] [place] [address]40 18 Sep, 2012 [facility] [place] [facility] [address] [id number] [place] [address] 16 Sep, 2012 [facility] [place] [facility] [address] [id number] [place] [address]47 12 Sep, 2012 [facility] [place] [facility] [address] [id number] [place] [address] 43[address] Nov, [facility] [place] [facility] [address] [id number] [place] [address] 1198 05 Nov, 2012 [facility] [place] [facility] [address] [id number] [place] [address] Oct, [facility] [place] [facility] [address] [id number] [place] [address] Oct, [facility] [place] [facility] [address] [id number] [place] [address] 2214 Sep, [facility] [place] [facility] [address] [id number] [place] [address] 6[address] Sep, [facility] [place] [facility] [address] [id number] [place] [address] Sep, [facility] [place] [facility] [address] [id number] [place] [address] Sep, [facility] [place] [facility] [address] [id number] [place] [address]696 Sep, [facility] [place] [facility] [address] [id number] [place] [address]- [address] Sep, [facility] [place] [facility] [address] [id number] [place] [address] Sep, [facility] [place] [facility] [address] [id number] [place] [address] Aug, [facility] [place] [facility] [address] [id number], [place] [address] Aug, [facility] [place] [facility] [address] [id number] [place] [address]- [address] 16 Aug, 2012 [facility] [place] [facility] [address] [id number] [place] [address] Aug, [facility] [place] [facility] [address] [id number], [place] [address] Aug, [facility] [place] [facility] [address] [id number], [place] [address] Aug, [facility] [address] [id number] [place] [address] Aug, [facility] [address] [id number] [place] [address] 2546 Aug, [facility] [address] [id number] [place] [address] 2546 July, [facility] [address] [id number] [place] [address] 2546 July, [facility] [address] [id number] [place] [address] July, [facility] [address] [id number] [place] [id number] July, [facility] [address] [id number] [place] [address] July, [facility] [address] [id number] [place] [address] Jun, [facility] [address] [id number] [place] [address] May, [facility] [address] [id number] [place] [address] 2546 May, [facility] [address] [id number] [place] [address] May, [facility] [address] [id number], [place] [address] Apr, [facility] [address] [id number] [place] [address] 25[address] Apr, [facility] [address] [id number] [place] [address] Apr, [facility] [address] [id number] [place] [address] 25[address] Mar, [facility] [address] [id number] [place] [address] 28 Mar, 2012 [facility] [address] [id number] [place] [address] 28 Mar, 2012 [facility] [place] [facility] [address] [id number] [place] [address] 14 Mar, 2012 [facility] [place] [facility] [address] [id number] [place] [address] 10 Mar, 2012 [facility] [place] [facility] [address] [id number] [place] [address] Mar, [facility] [place] [facility] [address] [id number] [place] [address] Mar, [facility] [address] [id number] [place] [address] Feb, [facility] [address] [id number] [place] [address] Feb, [facility] [address] [id number] [place] [address] Feb, [facility] [place] [facility] [address] [id number] [place] [address] Feb, [facility] [address] [id number] [place] [address] 17 Feb, 2012 [facility] [place] [facility] [address] [id number] [place] [address]- [address] 17 Feb, 2012 [facility] [place] [facility] [address] [id number] [place] [address] Feb, [facility] [place] [facility] [address] [id number] [place] [address] 2546 Feb, [facility] [place] [facility] [address] [id number] [place] [address] Jan, [facility] [place] [facility] [address] [id number] [place] [address]- 7461 Jan, [facility] [place] [facility] [address] [id number] [place] [address]- 9232 Jan, [facility] [place] [facility] [address] [id number] [place] [address]- 1050 Jan, [facility] [place] [facility] [address] [facility] [id number] [place] [address]- [address]896 Jan, [facility] [place] [facility] [address] [id number] [place] [address]- 5658 Jan, [facility] [place] [facility] [address] [id number] [place] [address] Jan, [facility] [place] [facility] [address] [id number] [place] [address]- 2895 Jan, [facility] [place] [facility] [address] [facility] [id number] [place] [address] 1240 Jan, [facility] [place] [facility] [address] [id number], [place] [address] Jan, [facility] [place] [facility] [address] [id number], [place] [address] Jan, [facility] [place] [facility] [address] [facility] [id number], [place] [address] Jan, [facility] [place] [facility] [address] [id number], [place] [address] Jan, [facility] [place] [facility] [address] [id number], [place] [address] Jan, [facility] [place] [facility] [address] [id number], [place] [address] Jan, [facility] [place] [facility] [address] [facility] [id number], [place] [address] Jan, [facility] [place] [facility] [address] [facility] [id number], [place] [address] Dec, [facility] [place] [facility] [address] [id number] [place] [address]- 7871 17 Dec, 2011 [facility] [place] [facility] [address] [id number] [place] [address]- [address] 16 Dec, 2011 [facility] [place] [facility] [address] [id number] [place] [address]- 8706 16 Dec, 2011 [facility] [place] [facility] [address] [id number] [place] [address]168 Dec, [facility] [place] [facility] [address] [id number] [place] [address]- 6499 Dec, [facility] [place] [facility] [address] [id number] [place] [address]- 29[address] Dec, [facility] [place] [facility] [address] [id number] [place] [address]- [address] Dec, [facility] [place] [facility] [address] [id number] [place] [address]- 9535 08 Dec, 2011 [facility] [place] [facility] [address] [id number] [place] [address]- 9576 05 Dec, 2011 [facility] [place] [facility] [address] [id number] [place] [address]- 1268 18 Nov, 2011 [facility] [place] [facility] [address] [id number] [place] [address]- 7214 13 Nov, 2011 [facility] [place] [facility] [address] [id number] [place] [address]- 1411 24 Oct, 2011 [facility] [place] [facility] [address] [id number] [place] [address]- 9817 22 Oct, 2011 [facility] [place] [facility] [address] [id number] [place] [address]- 6733 17 Oct, 2011 [facility] [place] [facility] [address] [id number] [place] [address]- 3647 16 Oct, 2011 [facility] [place] [facility] [address] [id number] [place] [address]- 6151 Oct, [facility] [place] [facility] [address] [id number] [place] [address]- 5604 Oct, [facility] [place] [facility] [address] [id number] [place] [address]- 1577 Oct, [facility] [place] [facility] [address] [id number] [place] [address]- [address]186 Sep, [facility] [place] [facility] [address] [id number] [place] [address]- 42[address] Aug, [facility] [address] [id number] [place] [address] Aug, [facility] [place] [facility] [address] [id number] [place] [address]- 3735 Aug, [facility] [address] [id number] [place] [address]- 8253 Aug, [facility] [address] [id number] [place] [address]- 9216 Aug, [facility] [place] [facility] [address] [id number] [place] [address]- 5[address] July, [facility] [place] [facility] [address] [id number] [place] [address]- [address]116 July, [facility] [place] [facility] [address] [id number] [place] [address]- 69[address] July, [facility] [place] [facility] [address] [id number] [place] [address]- 5[address] Jun, [facility] [place] [facility] [address] [id number] [place] [address]- 5652 Jun, [facility] [place] [facility] [address] [id number] [place] [address]- 7583 Jun, [facility] [place] [facility] [address] [id number] [place] [address]- 2700 Jun, [facility] [place] [facility] [address] [id number] [place] [address]- 0048 30 May, 2011 [facility] [place] [facility] [address] [id number] [place] [address]- 1296 30 May, 2011 [facility] [place] [facility] [address] [id number] [place] [address]- 7816 29 May, 2011 [facility] [place] [facility] [address] [id number] [place] [address]- 6836 28 May, 2011 [facility] [place] [facility] [address] [id number] [place] [address]- 3693 23 May, 2011 [facility] [place] [facility] [address] [id number] [place] [address]- 4817 22 May, 2011 [facility] [place] [facility] [address] [id number] [place] [address]- 5969 21 May, 2011 [facility] [place] [facility] [address] [id number] [place] [address]- 3379 19 May, 2011 [facility] [place] [facility] [address] [id number] [place] [address]- 0809 08 May, 2011 [facility] [place] [facility] [address] [id number] [place] [address]- 5109 05 May, 2011 [facility] [place] [facility] [address] [id number] [place] [address]- 5658 02 May, 2011 [facility] [place] [facility] [address] [id number] [place] [address]- 1364 May, [facility] [place] [facility] [address] [id number] [place] [address]- 2508 Mar, [facility] [place] [facility] [address] [id number] [place] [address]- 9397 Mar, [facility] [place] [facility] [address] [id number] [place] [address]- 9823 Feb, [facility] [place] [facility] [address] [id number] [place] [address]- 4061 Feb, [facility] [place] [facility] [address] [id number] [place] [address]- 0192 20 Feb, 2011 [facility] [address] [id number] [place] [address]- 3292 15 Feb, 2011 [facility] [place] [facility] [address] [id number] [place] [address]- 2686 13 Feb, 2011 [facility] [place] [facility] [address] [id number] [place] [address]- 1206 13 Feb, 2011 [facility] [place] [facility] [address] [id number] [place] [address]- 1235 13 Feb, 2011 [facility] [place] [facility] [address] [id number] [place] [address] 28 Jan, 2011 [facility] [place] [facility] [address] [id number] [place] [address]- 9650 23 Jan, 2011 [facility] [place] [facility] [address] [id number] [place] [address]- 0685 Jan, [facility] [place] [facility] [address] [id number] [place] [address]- 3933 Jan, [facility] [place] [facility] [address] [id number] [place] [address]- 9864 Jan, [facility] [place] [facility] [address] [id number] [place] [address]- 0311 Jan, [facility] [place] [facility] [address] [id number] [place] [address]- 2551 Dec, [facility] [place] [facility] [address] [id number] [place] [address]- 4607 Dec, [facility] [place] [facility] [address] [id number] [place] [address]- 6069 Dec, [facility] [place] [facility] [address] [id number] [place] [address]- 9740 July, [facility] [place] [facility] [address] [id number] [place] [address]- 8620 July, [facility] [place] [facility] [address] [id number] [place] [address]- 3830 08 Feb, 2010 [facility] [place] [facility] [address] [id number] [place] [address]- 9824 Jan, [facility] [place] [facility] [address] [id number] [place] [address]- 5169 Dec, [facility] [place] [facility] [address] [id number] [place] [address]- 7892 Dec, [facility] [place] [facility] [address] [id number] [place] [address]- 7413 15 Sep, 2009 [facility] [place] [facility] [address] [id number] [place] [address]- 9031 Aug, [facility] [place] [facility] [address] [id number] [place] [address]- 5702 Jun, [facility] [place] [facility] [address] [id number], [place] [address]- 1324 Jun, [facility] [place] [facility] [address] [id number] [place] [address]- 4068 Jan, [facility] [place] [facility] [address] [id number], [place] [address]- 4244 Jan, [facility] [place] [facility] [address] [id number], [place] [address]- 1703 Jan, [facility] [place] [facility] [address] [id number], [place] [address]- 1254 Jan, [facility] [place] [facility] [address] [id number] [place] [address]- 2179 29 Dec, 2008 [facility] [place] [facility] [address] [id number], [place] [address]- 4237 Dec, [facility] [place] [facility] [address] [id number], [place] [address]- 9065 15 Dec, 2008 [facility] [place] [facility] [address] [id number], [place] [address]- 2546 Nov, [facility] [address] [facility] [id number], [place] [address]- 8816 July, [facility] [address] [id number], [place] [address] 25[address] May, [facility] [address] [id number], [place] [address]- 2546 Apr, [facility] [address] [id number], [place] [address] 2546 Feb, [facility] [address] [id number], [place] [address]- 7725 Dec, IMMUNIZATIONS No Known Immunizations SOCIAL HISTORY Never Assessed REASON FOR VISIT f/u PLAN OF CARE Activity Details Follow Up 2 Weeks Reason: VITAL SIGNS MEDICATIONS Unknown Medications RESULTS No Results PROCEDURES Procedure Date Ordered Result Body Site Psychotherapy, patient &/family, 30 minutes, established patient Dec 07, 2017 INSTRUCTIONS MEDICATIONS ADMINISTERED No Known Medications [...]
--- OUTSIDE RECORDS SUMMARY | 2018-06-14 14:26 | XMS REPORT ---
Author Author BEVERLY TAO Organization [facility] Address [address] [place] [address] Care Team Providers Care [employer] Professor Name Role Phone BEVERLY TAO Unavailable PROBLEMS Type Condition ICD9-CM Code YBI55-OH Code Onset Dates Condition Status SNOMED Code Problem Type 2 diabetes mellitus with complication E11.8 Active 719935480 Problem Acute bilateral low back pain with right-sided sciatica M54.41 Active 307964724 Problem Hyperlipidemia, unspecified E78.5 Active 70298063 Problem Hypertriglyceridemia E78.1 Active 018505054 Problem Obesity, unspecified 278.00 Active 251676689 Problem Other chronic pain G89.29 Active 35421375 Problem Eye exam normal Z01.00 Active 979020161 Problem Post laminectomy syndrome M96.1 Active 71611121 Problem senior living current use of insulin Z79.4 Active 351556435 Problem New daily persistent headache G44.52 Active 632187242 Problem Lumbago with sciatica, left side M54.42 Active 136311231 Problem Type 2 diabetes mellitus with hyperglycemia E11.65 Active 56150567 Problem Extreme poverty Z59.5 Active 01914216 Problem 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 Active 93980410 Problem Hyperlipidemia 272.4 Active 53511432 Problem Bipolar disorder, in partial remission, most recent episode manic F31.73 Active 33368911 Problem Irritable bowel syndrome with diarrhea K58.0 Active 006469957 Problem Lumbar radiculopathy M54.16 Active 505972540 Problem Non compliance with medical treatment Z91.19 Active 1646337 Problem Bipolar 1 disorder F31.9 Active 614374245 Problem Diabetes E11.9 Active 753967605 Problem 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 Active 442925411 ALLERGIES No Information ENCOUNTERS Encounter Location Date Diagnosis [facility] [address] [id number] [address] Mar, [facility] [id number] [place] [address] 16971- 9416 Dec, [facility] [id number] [place] [address] 25194- 8599 Nov, [facility] [id number] [place] [address] 57247- 9463 Nov, Hypertriglyceridemia E78.1 [place] [id number] [place] [address] 48830- 0749 Nov, Bipolar 1 disorder F31.9 ; 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 and Extreme poverty Z59.5 [place] [id number] [place] [address] 60893- 7871 18 Nov, 2017 Type 2 diabetes mellitus with complication E11.8 [place] [facility] [id number] [place] [address] 30582- 0940 18 Nov, 2017 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 and Bipolar disorder, in partial remission, most recent episode manic F31.73 [place] [id number] [place] [address] 02005- 0252 12 Nov, 2017 Type 2 diabetes mellitus with complication E11.8 [place] [id number] [place] [address] 94777- 2094 11 Nov, 2017 Bipolar 1 disorder F31.9 ; 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 and Extreme poverty Z59.5 [place] [id number] [place] [address] 32017- 6662 10 Nov, 2017 Type 2 diabetes mellitus with complication E11.8 ; Pain of left upper arm M79.622 ; Pain in right upper arm M79.621 ; Hyperglycemia R73.9 ; Lumbago with sciatica, left side M54.42 and Other chronic pain G89.29 [place] [id number] [place] [address] 63541- 1222 Oct, Bipolar 1 disorder F31.9 ; 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 and Extreme poverty Z59.5 [place] [id number] [place] [address] 02598- 6405 Oct, Type 2 diabetes mellitus with hyperglycemia E11.65 ; senior living current use of insulin Z79.4 and Other acute gastritis without hemorrhage K29.00 [place] [id number] [place] [address] 57710- 5153 Oct, Bipolar 1 disorder F31.9 ; 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 and Extreme poverty Z59.5 [place] [address] [id number] [place] [address] 44120- 7315 Sep, Diarrhea, unspecified R19.7 and Vomiting, unspecified R11.10 [place] [address] [id number] [place] [address] 54798- 2012 Aug, Type 2 diabetes mellitus with complication E11.8 [place] [id number] [place] [address] 00850- 0490 Aug, [place] [id number] [place] [address] 41510- 2430 Aug, Bipolar 1 disorder F31.9 ; 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 and Extreme poverty Z59.5 [place] [id number] [place] [address] 55020- 3218 Aug, 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 and Bipolar disorder, in partial remission, most recent episode manic F31.73 [place] [id number] [place] [address] 59116- 9948 Aug, Bipolar 1 disorder F31.9 [place] [id number] [place] [address] 84918- 6422 Aug, [place] [id number] [place] [address] 55680- 4674 Aug, [place] [address] [id number] [place] [address] 76546- 4548 Aug, Bipolar 1 disorder F31.9 ; 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 and Extreme poverty Z59.5 [place] [id number] [place] [address] 90250- 6659 July, Type 2 diabetes mellitus with complication E11.8 [place] [id number] [place] [id number] [address] July, Bipolar 1 disorder F31.9 ; 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 and Extreme poverty Z59.5 [place] [id number] [place] [address] 00229- 9580 Jun, Bipolar 1 disorder F31.9 ; 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 and Extreme poverty Z59.5 [place] [address] [id number] [place] [address] 17667- 4101 Jun, Bipolar 1 disorder F31.9 ; 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 and Extreme poverty Z59.5 [place] [id number] [place] [address] 73143- 7459 Jun, Bipolar 1 disorder F31.9 ; 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 and Extreme poverty Z59.5 [place] [id number] [place] [address] 56453- 1342 May, Urinary tract infection without hematuria, site unspecified N39.0 [place] [address] [id number] [place] [address] 80892- 1163 May, Bipolar 1 disorder F31.9 ; 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 and Extreme poverty Z59.5 [place] [id number] [place] [address] 80118- 8652 Apr, Diabetes E11.9 and Breast cancer screening Z12.31 [place] [id number] [place] [address] 52946- 5494 Apr, Bipolar 1 disorder F31.9 and 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 [place] [id number] [place] [address] 55453- 2013 Mar, Bipolar 1 disorder F31.9 ; 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 and Extreme poverty Z59.5 [place] [id number] [place] [address] 96710- 9927 Mar, New daily persistent headache G44.52 ; Leg pain 729.5 and History of carpal tunnel release Z98.890 [place] [id number] [place] [address] 53641- 9367 Mar, Hyperlipidemia, unspecified E78.5 [place] [address] 92416- 0062 Mar, Bipolar 1 disorder F31.9 ; 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 and Extreme poverty Z59.5 [place] [address] 86940- 5991 Feb, Bipolar 1 disorder F31.9 ; 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 and Extreme poverty Z59.5 [place] [address] 16968- 4261 Feb, Diabetes E11.9 [place] [address] 33954- 4336 Feb, Viral syndrome B34.[address] 06600- 2238 Jan, Other viral agents as the cause of diseases classified elsewhere B97.89 and Acute upper respiratory infection, unspecified J06.9 [place] [id number] [place] [address] 52677- 8576 Jan, Bipolar 1 disorder F31.9 and 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 [place] [id number] [place] [address] 80340- 8831 Jan, Bipolar 1 disorder F31.9 ; 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 and Extreme poverty Z59.5 [place] [address] [id number] [place] [address] 70217- 2618 Dec, Diabetes E11.9 [place] [address] [place] [id number]- 2546 Dec, Diabetes E11.9 and Encounter for immunization Z23 [facility] [id number] [place] [address] 17094- 2209 Dec, Bipolar 1 disorder F31.9 ; 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 and Extreme poverty Z59.5 [facility] [id number] [place] [address] 86108- 1278 Dec, Back pain M54.9 [facility] [id number] [place] [address] 93443- 3012 Nov, [place] [id number] [place] [address] 35109- 9601 Nov, Bipolar 1 disorder F31.9 ; 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 and Extreme poverty Z59.5 [place] [id number] [place] [address] 23713- 5782 Nov, Bipolar 1 disorder F31.9 ; 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 and Extreme poverty Z59.5 [place] [id number] [place] [address] 57905- 8498 Oct, 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 and Bipolar 1 disorder F31.9 [facility] [id number] [place] [address] 46400- 0330 Oct, Bipolar 1 disorder F31.9 ; 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 and Extreme poverty Z59.5 [place] [id number] [place] [address] 59705- 7682 Oct, Back pain M54.9 [facility] [id number] [place] [address] 03501- 7703 Oct, 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 and Type 2 diabetes mellitus with complication E11.8 [facility] [address] [address] 1822 Sep, Bipolar 1 disorder F31.9 ; 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 and Extreme poverty Z59.5 [place] [address] [address] 2802 Sep, 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5 [place] [id number] [place] [address] 01851- 8861 Aug, [place] [id number] [place] [address] 30915- 9722 Aug, [place] [id number] [place] [address] 71650- 8792 Aug, [facility] [id number] [place] [address] 75640- 3782 July, [place] [id number] [place] [address] 86240- 1510 July, Acute bilateral low back pain with right-sided sciatica M54.41 [place] [address] [id number] [place] [address] 32970- 1766 July, Bipolar 1 disorder F31.9 ; 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 and Extreme poverty Z59.5 [facility] [id number] [place] [address] 64559- 7794 July, Back pain M54.9 and Diabetes E11.9 [facility] [id number] [place] [address] 87914- 0354 Jun, Bipolar 1 disorder F31.9 ; 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 and Extreme poverty Z59.5 [place] [address] [id number] [place] [address] [address]19 Jun, Bipolar 1 disorder F31.9 ; 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 and Extreme poverty Z59.5 [place] [address] 52657- 1176 May, Visit for pelvic exam Z01.419 ; Acute vaginitis N76.0 and Diabetes E11.9 [place] [address] 30370- 3019 May, Bipolar 1 disorder F31.9 ; 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 and Extreme poverty Z59.5 [place] [address] 64356- 5712 May, [place] [address] 68756- 0970 May, [place] [address] 62858- 9602 May, Bipolar 1 disorder F31.9 ; 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 and Extreme poverty Z59.5 [place] [address] [id number] [place] [address] 89460- 7937 May, Hyperlipidemia, unspecified E78.5 [place] [address] [id number] [place] [address] 06580- 0686 Apr, Breast cancer screening Z12.39 [place] [address] [id number] [place] [address] 18597- 4578 Mar, [place] [address] 89964- 4572 Mar, Bipolar disorder, current episode mixed, unspecified F31.60 [place] [address] 66512- 9244 Mar, Bipolar 1 disorder F31.9 ; 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 and Extreme poverty Z59.5 [place] [address] 06172- 1384 Feb, Acute nasopharyngitis J00 [place] [address] 05566- 1530 Feb, Dental examination Z01.20 [place] [address] 92045- 3562 Feb, Dental cavities K02.9 and Chronic periodontitis, unspecified K05.30 [place] [address] 68689- 3291 Feb, Low back pain M54.5 and Extreme poverty Z59.5 [place] [address] 95777- 0829 Feb, [place] [address] 55875- 1549 Feb, Routine gynecological examination V72.31 ; Breast cancer screening Z12.39 and Herpes simplex type 1 infection B00.9 [place] [address] 44689- 8136 Feb, Diabetes E11.9 [place] [address] 81717- 4306 Feb, Encounter for dental examination and cleaning without abnormal findings Z01.20 [place] [address] 69449- 9349 Jan, Hyperlipidemia, unspecified E78.5 [place] [address] 38641- 8491 Jan, Bipolar 1 disorder F31.9 ; 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 and Extreme poverty Z59.5 [place] [address] 36315- 0796 Jan, Diabetes E11.9 [place] [address] [id number] [place] [address] 19610- 9845 17 Jan, 2016 Diabetes E11.9 [place] [address] 85603- 3198 14 Dec, 2015 Bipolar 1 disorder F31.9 ; 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 and Extreme poverty Z59.5 [place] [address] 20954- 0322 13 Dec, 2015 Bipolar disorder, current episode mixed, unspecified F31.60 and 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 [place] [address] [id number] [place] [address] 13579- 7141 16 Nov, 2015 Bipolar 1 disorder F31.9 ; 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 ; Extreme poverty Z59.5 and Non compliance with medical treatment Z91.19 [place] [address] [id number] [place] [address] 09056- 8019 Oct, [place] [address] 51902- 9151 Oct, Dental caries K02.9 [place] [address] 75334- 8243 Oct, Low back pain M54.5 and Other chronic pain G89.29 [place] [address] [id number] [place] [address] 92529- 8345 Oct, Bipolar 1 disorder F31.9 ; 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 ; Extreme poverty Z59.5 and Non compliance with medical treatment Z91.19 [place] [address] [id number] [place] [address] 09180- 2142 Oct, [place] [address] 41749- 0509 Oct, [place] [address] [id number] [place] [address] 34387- 3152 Oct, Dental examination Z01.20 [place] [address] [place] [address]- 7822 Oct, Bipolar 1 disorder F31.9 ; 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 ; Extreme poverty Z59.5 and Non compliance with medical treatment Z91.19 [place] [address] [place] [address] 53142- 8280 Oct, [place] [address] [id number] [place] [address] 53649- 8169 Sep, Type 2 diabetes mellitus with complication E11.8 [place] [address] [id number] [place] [address] 59660- 4717 Sep, Bipolar disorder, current episode mixed, unspecified F31.60 [place] [id number] [place] [address] 26200- 0993 Sep, Bipolar disorder, current episode mixed, unspecified F31.60 [place] [id number] [place] [address] 19394- 8242 Sep, Bipolar disorder, in partial remission, most recent episode manic F31.73 ; 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 ; Extreme poverty Z59.5 and Non compliance with medical treatment Z91.19 [place] [address] [place] [address] 91295- 7272 Aug, Bipolar disorder, in partial remission, most recent episode manic F31.73 ; 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 ; Extreme poverty Z59.5 and Non compliance with medical treatment Z91.19 [place] [address] [place] [address] 07730- 4461 Aug, Bipolar disorder, in partial remission, most recent episode manic F31.73 ; 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 ; Extreme poverty Z59.5 and Non compliance with medical treatment Z91.19 [place] [address] [place] [address] 79745- 6687 Aug, [place] [address] [id number] [place] [address] 74020- 3998 July, Bipolar disorder, in partial remission, most recent episode manic F31.73 ; 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 ; Extreme poverty Z59.5 and Non compliance with medical treatment Z91.19 [place] [address] [place] [address] 14515- 4244 July, Bipolar disorder, current episode mixed, unspecified F31.60 [place] [address] [id number] [place] [address] 57934- 0333 July, Bipolar disorder, in partial remission, most recent episode manic F31.73 ; 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 ; Extreme poverty Z59.5 and Non compliance with medical treatment Z91.19 [place] [address] [id number] [place] [address] 82027- 8213 July, 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 Z79.891 and Chronic pain G89.29 [place] [address] [id number] [place] [address] 35440- 6826 Jun, 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 and Bipolar 1 disorder F31.9 [place] [address] [id number] [place] [address] 46254- 8181 Jun, [place] [address] [id number] [place] [address] 87835- 8638 Jun, [place] [address] [id number] [place] [address] 25561- 6370 Jun, [place] [address] [id number] [place] [address] 90357- 4807 Jun, Bipolar disorder, in partial remission, most recent episode manic F31.73 ; 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 and Non compliance with medical treatment Z91.19 [place] [address] [id number] [place] [address] 42721- 1798 May, Bipolar disorder, in partial remission, most recent episode manic F31.73 ; 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 and Non compliance with medical treatment Z91.19 [place] [address] [id number] [place] [address] 20154- 0363 May, Bipolar disorder, in partial remission, most recent episode manic F31.73 [place] [address] 65520- 0970 May, Diabetes E11.9 and Chronic pain G89.29 [place] [address] 02304- 2377 May, [place] [address] 18192- 7549 May, Bipolar disorder, in partial remission, most recent episode manic F31.73 ; Non compliance with medical treatment Z91.19 and 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 [place] [address] [id number] [place] [address] 42505- 1310 May, Type 2 diabetes mellitus with complication E11.8 and Back pain M54.[address] 52333- 5566 May, Bipolar disorder, in partial remission, most recent episode manic F31.73 and 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 [place] [address] 08532- 7255 Apr, [place] [address] [place] [id number] [place] [address] 72149- 0543 Apr, [place] [address] [place] [id number] [place] [address] 09642- 9221 Apr, [address] 27019- 9176 Apr, Diabetes E11.9 ; Irritable bowel syndrome with diarrhea K58.0 and Lumbar radiculopathy M54.16 [place] [address] [place] [id number] [place] [address] 02157- 7265 Apr, Breast screening Z12.[address] 98187- 6293 Apr, Bipolar disorder, in partial remission, most recent episode manic F31.73 ; Non compliance with medical treatment Z91.19 and 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 [place] [address] [place] [id number] [place] [address] 07291- 3195 Mar, Edema, unspecified type R60.9 and Type 2 diabetes mellitus with complication E11.8 [place] [address]491- 1227 Mar, Bipolar disorder, in partial remission, most recent episode manic F31.73 ; Non compliance with medical treatment Z91.19 ; 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 and Extreme poverty Z59.5 [place] [address] [place] [id number] [place] [address] 24600- 8152 Mar, Bipolar disorder, current episode mixed, unspecified F31.60 ; 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 ; Extreme poverty Z59.5 and Generalized anxiety disorder F41.1 [place] [address] 59772- 8069 Mar, Bipolar disorder, in partial remission, most recent episode manic F31.73 ; 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 and Extreme poverty Z59.5 [place] [address] [id number] [place] [address] 74598- 4270 Feb, Bipolar disorder, in partial remission, most recent episode manic F31.73 ; 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 and Extreme poverty Z59.5 [place] [address] [id number] [place] [address] 24567- 2476 Feb, Bipolar disorder, in partial remission, most recent episode manic F31.73 ; 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 and Extreme poverty Z59.5 [place] [address] [place] [id number] [place] [address] 85638- 2504 Feb, [place] [address] [place] [id number] [place] [address] 11129- 8716 Jan, Type 2 diabetes mellitus with complication E11.8 and Petechiae R23.3 [place] [address] [place] [id number] [place] [address] 48172- 1671 Jan, Type 2 diabetes mellitus with complication E11.8 ; Edema, unspecified R60.9 ; Petechiae R23.3 and Diabetes E11.9 [place] [id number] [place] [address] 45188- 3561 Jan, Bipolar disorder, in partial remission, most recent episode manic F31.73 ; 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 and Extreme poverty Z59.5 [place] [address] [place] [id number] [place] [address] 48409- 9207 Jan, Bipolar disorder, in partial remission, most recent episode manic F31.73 ; 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 and Extreme poverty Z59.5 [place] [address] [place] [id number] [place] [address] 75911- 4333 Dec, Bipolar disorder, in partial remission, most recent episode manic F31.73 [place] [address] [place] [id number] [place] [address] 27025- 4635 Dec, Edema, due to unspecified malnutrition type, unspecified edema R60.9 and Essential hypertension I10 [place] [address] [place] [id number] [place] [address] 83329- 3871 Dec, Bipolar disorder, in partial remission, most recent episode manic F31.73 [place] [id number] [place] [address] 11044- 6176 Nov, Bipolar I disorder, most recent episode (or current) mixed, unspecified 296.60 [place] [id number] [place] [address] 70763- 0488 24 Nov, 2014 Stress incontinence, female 625.6 ; Back pain 724.5 and Leg pain 729.5 [place] [id number] [place] [address] 36862- 1422 18 Nov, 2014 Generalized anxiety disorder 300.02 and Bipolar II disorder 296.89 [place] [id number] [id number] [address] Nov, Bipolar I disorder, most recent episode (or current) mixed, unspecified 296.60 [facility] [address] [address] 14[address] Oct, [facility] [address], [place] [address] 5601 Oct, [facility] [id number] [address] 7[address] Oct, [facility] [address], [place] [address] 1255 Oct, Bipolar I disorder, most recent episode (or current) mixed, unspecified 296.60 [facility] [address], [place] [address] 1921 Sep, Diabetes 250.00 [facility] [id number] [address] 2503 Sep, Bipolar I disorder, most recent episode (or current) mixed, unspecified 296.60 [facility] [address], [place] [address] 7957 Sep, [facility] [address], [place] [address] 3669 Sep, [facility] [address], [place] [address] 7135 Sep, Bipolar I disorder, most recent episode (or current) mixed, unspecified 296.60 [facility] [id number] [address] 0525 Sep, Bipolar I disorder, most recent episode (or current) mixed, unspecified 296.60 [facility] [id number] [id number] [address] Sep, [facility] [id number], [place] [address] 2092 Sep, Anxiety 300.00 ; Diabetes 250.00 and Hyperlipidemia 272.4 [facility] [address], [place] [address] 3898 Aug, [facility] [id number] [place] [address] 370362- 2529 Aug, [facility] [address], [place] [address]- 2575 Aug, [facility] [id number] [place] [address] 478225- 4573 Aug, Bipolar I disorder, most recent episode (or current) mixed, unspecified 296.60 [facility] [id number] [place] [address] 073457- 2477 Aug, Generalized anxiety disorder 300.02 and Bipolar II disorder 296.89 [facility] [id number] [place] [address] 73131- 2591 July, Bipolar I disorder, most recent episode (or current) mixed, unspecified 296.60 [facility] [address], [place] [address]- 7756 July, Cough 786.2 [facility] [id number] [place] [address] 18841- 5507 July, Bipolar I disorder, most recent episode (or current) mixed, unspecified 296.60 [facility] [address], [place] [address]- 8504 Jun, Diabetes 250.00 [facility] [address], [place] [address]- 3849 Jun, [facility] [address], [place] [address]- 5544 Jun, [facility] [address] [address] [address]574 May, [facility] [address] 6353 May, [facility] [place] [facility] [address] [id number] [place] [address]- 5280 May, [facility] [place] [facility] [address] [id number] [place] [address]- 8281 May, [facility] [place] [facility] [address] [id number] [place] [address]- 6793 May, [facility] [place] [facility] [address] [id number] [place] [address]- 1984 May, [facility] [place] [facility] [address] [id number] [place] [address]- 9799 Apr, [facility] [place] [facility] [address] [id number] [place] [address]- 4860 Apr, [facility] [place] [facility] [address] [id number] [place] [address]- 3069 Apr, [facility] [place] [facility] [address] [id number] [place] [address]- 5100 Apr, [facility] [place] [facility] [address] [id number] [place] [address]- 1629 Apr, [facility] [place] [facility] [address] [id number] [place] [address]- 4300 Apr, [facility] [place] [facility] [address] [id number] [place] [address]- 2051 Apr, [facility] [place] [facility] [address] [id number] [place] [address]- 2274 Apr, [facility] [place] [facility] [address] [id number] [place] [address]- 3529 Mar, [facility] [place] [facility] [address] [id number] [place] [address]- 4888 Mar, [facility] [place] [facility] [address] [facility] [id number] [place] [address]- 7963 Mar, [facility] [place] [facility] [address] [id number] [place] [address]- 1264 Mar, [facility] [address] [id number] [place] [address]- 5851 Mar, [facility] [place] [facility] [address] [id number] [place] [address]- 1228 Mar, [facility] [address] [id number] [place] [address]- 7263 Mar, [facility] [place] [facility] [address] [id number] [place] [address]- 1138 Mar, [facility] [address] [id number] [place] [address] Feb, [facility] [address] [id number] [place] [address]- 8676 Feb, [facility] [address] [id number] [place] [address]- 2885 Feb, [facility] [address] [id number] [place] [address]- 2358 Feb, [facility] [place] [facility] [address] [id number] [place] [address]- 7778 Feb, [facility] [address] [id number] [place] [address]- 4343 Feb, [facility] [place] [facility] [address] [id number] [place] [address]- 9035 Feb, [facility] [place] [facility] [address] [id number] [place] [address]- 1588 Feb, [facility] [place] [facility] [address] [id number] [place] [address]- 0152 Feb, [facility] [place] [facility] [address] [id number] [place] [address]- 5366 Feb, [facility] [place] [facility] [address] [id number] [place] [address]- 2286 Jan, [facility] [place] [facility] [address] [id number] [place] [address]- 7301 Jan, [facility] [place] [facility] [address] [id number] [place] [address]- 8404 Jan, [facility] [place] [facility] [address] [id number] [place] [address]- 7034 Jan, [facility] [place] [facility] [address] [id number] [place] [address]- 8997 Jan, [facility] [place] [facility] [address] [id number] [place] [address]- 7903 Jan, [facility] [place] [facility] [address] [id number] [place] [address]- 1801 Jan, [facility] [place] [facility] [address] [id number] [place] [address]- 0296 Jan, [facility] [place] [facility] [address] [id number] [place] [address]- 3898 Jan, [facility] [place] [facility] [address] [id number] [place] [address]- 2481 Jan, [facility] [place] [facility] [address] [id number], [place] [address]- 0677 Jan, [facility] [place] [facility] [address] [id number], [place] [address]- 4147 Jan, [facility] [place] [facility] [address] [id number], [place] [address]- 5367 Jan, [facility] [place] [facility] [address] [id number] [place] [address]- 1529 Jan, [facility] [place] [facility] [address] [id number], [place] [address]- 5025 Jan, [facility] [place] [facility] [address] [id number] [place] [address]- 1390 Dec, [facility] [place] [facility] [address] [id number] [place] [address]- 8145 Dec, 2013 [facility] [place] [facility] [address] [id number] [place] [address]- 6047 16 Dec, 2013 [facility] [place] [facility] [address] [id number] [place] [address]- 7098 16 Dec, 2013 [facility] [place] [facility] [address] [id number] [place] [address]- 9681 09 Dec, 2013 [facility] [place] [facility] [address] [id number] [place] [address]- 3038 09 Dec, 2013 [facility] [place] [facility] [address] [id number] [place] [address]- 8994 Dec, 2013 [facility] [place] [facility] [address] [id number] [place] [address]- 0610 07 Dec, 2013 [facility] [place] [facility] [address] [id number] [place] [address]- 0951 25 Sep, 2013 [facility] [place] [facility] [address] [id number] [place] [address]- 8795 25 Sep, 2013 [facility] [place] [facility] [address] [id number] [place] [address]- 1879 10 Sep, 2013 [facility] [place] [facility] [address] [facility] [id number] [place] [address]- 2770 10 Sep, 2013 [facility] [place] [facility] [address] [id number] [place] [address]- 8069 08 Sep, 2013 [facility] [place] [facility] [address] [id number], [place] [address]- 2542 08 Sep, 2013 [facility] [place] [facility] [address] [id number] [place] [address]- 2541 08 Sep, 2013 [facility] [place] [facility] [address] [id number] [place] [address]- 2541 08 Sep, 2013 [facility] [place] [facility] [address] [id number] [place] [address]- 5629 08 Sep, 2013 [facility] [place] [facility] [address] [id number] [place] [address]- 4631 08 Nov, 2013 [facility] [place] [facility] [address] [id number] [place] [address]- 8708 04 Nov, 2013 [facility] [place] [facility] [address] [id number] [place] [address]- 2955 04 Nov, 2013 [facility] [place] [facility] [address] [id number] [place] [address]- 0418 03 Nov, 2013 [facility] [place] [facility] [address] [id number] [place] [address]- 3166 02 Nov, 2013 [facility] [place] [facility] [address] [id number] [place] [address]- 1955 Nov, 2013 [facility] [place] [facility] [address] [id number] [place] [address]- 4982 Oct, [facility] [place] [facility] [address] [id number] [place] [address]- 8492 Oct, [facility] [place] [facility] [address] [id number] [place] [address]- 5055 Oct, [facility] [place] [facility] [address] [id number] [place] [address]- 0662 Oct, [facility] [place] [facility] [address] [id number] [place] [address]- 6491 Oct, [facility] [place] [facility] [address] [id number] [place] [address]- 2014 Oct, [facility] [place] [facility] [address] [id number] [place] [address]- 6595 Oct, [facility] [place] [facility] [address] [id number] [place] [address]- 8389 Oct, [facility] [place] [facility] [address] [id number] [place] [address]- 1550 Oct, [facility] [place] [facility] [address] [id number] [place] [address]- 9731 Oct, [facility] [place] [facility] [address] [id number] [place] [address]- 7946 Oct, [facility] [place] [facility] [address] [id number] [place] [address]- 9745 Oct, [facility] [place] [facility] [address] [id number] [place] [address]- 5551 Oct, [facility] [place] [facility] [address] [id number] [place] [address]- 9798 Oct, [facility] [place] [facility] [address] [id number] [place] [address]- 9432 Sep, [facility] [place] [facility] [address] [id number] [place] [address]- 5651 Sep, [facility] [place] [facility] [address] [id number] [place] [address]- 8867 Sep, [facility] [place] [facility] [address] [id number] [place] [address]- 1277 Sep, [facility] [place] [facility] [address] [id number] [place] [address]- 8569 Sep, [facility] [place] [facility] [address] [id number] [place] [address]- 3021 Sep, [facility] [place] [facility] [address] [id number] [place] [address]- 1780 Sep, [facility] [place] [facility] [address] [id number] [place] [address]- 5362 Sep, [facility] [place] [facility] [address] [id number] [place] [address]- 5616 Aug, [facility] [place] [facility] [address] [id number] [place] [address]- 1355 Aug, [facility] [place] [facility] [address] [id number] [place] [address]- 9941 Aug, [facility] [place] [facility] [address] [id number] [place] [address]- 8788 Aug, [facility] [address] [id number] [place] [address]- 5592 Aug, [facility] [place] [facility] [address] [id number] [place] [address]- 3703 Aug, [facility] [address] [id number] [place] [address]- 1302 Aug, [facility] [place] [facility] [address] [id number] [place] [address]- 7238 Aug, [facility] [address] [id number] [place] [address]- 6597 July, [facility] [address] [id number] [place] [address]- 2537 July, [facility] [address] [id number] [place] [address]- 8127 July, [facility] [address] [id number] [place] [address]- 4357 July, [facility] [place] [facility] [address] [id number] [place] [address]- 6884 July, [facility] [address] [id number] [place] [address]- 1685 July, [facility] [place] [facility] [address] [id number] [place] [address]- 4020 July, [facility] [place] [facility] [address] [id number] [place] [address]- 8907 July, [facility] [place] [facility] [address] [id number] [place] [address]- 0006 Jun, [facility] [place] [facility] [address] [id number] [place] [address]- 9545 Jun, [facility] [place] [facility] [address] [id number] [place] [address]- 4985 Jun, [facility] [place] [facility] [address] [id number] [place] [address]- 6324 Jun, [facility] [place] [facility] [address] [id number] [place] [address]- 3850 Jun, [facility] [place] [facility] [address] [id number] [place] 5922 Jun, [facility] [place] [facility] [address] [id number] [place] [address]- 1423 Jun, [facility] [place] [facility] [address] [id number] [place] [address]- 3187 Jun, [facility] [place] [facility] [address] [id number] [place] [address]- 8528 Jun, [facility] [place] [facility] [address] [id number] [place] [address]- 5099 Jun, [facility] [place] [facility] [address] [id number] [place] [address]- 0835 Jun, [facility] [place] [facility] [address] [id number] [place] [address]- 7347 Jun, [facility] [place] [facility] [address] [id number] [place] [address]- 9160 May, [facility] [place] [facility] [address] [id number] [place] [address]- 3766 May, [facility] [place] [facility] [address] [id number] [place] [address]- 3479 May, [facility] [place] [facility] [address] [id number] [place] [address]- 2803 May, [facility] [place] [facility] [address] [id number] [place] [address]- 5597 May, [facility] [place] [facility] [address] [id number] [place] 1653 May, [facility] [place] [facility] [address] [id number] [place] [address]- 0630 May, [facility] [place] [facility] [address] [id number] [place] [address]- 6467 May, [facility] [place] [facility] [address] [id number] [place] [address]- 3464 May, [facility] [place] [facility] [address] [facility] [id number] [place] [address]- 8249 May, [facility] [place] [facility] [address] [id number] [place] [address]- 7053 May, [facility] [place] [facility] [address] [id number] [place] [address]- 1401 May, [facility] [place] [facility] [address] [facility] [id number] [place] [address]- 0682 May, [facility] [place] [facility] [address] [facility] [id number] [place] [address]- 4085 May, [facility] [place] [facility] [address] [facility] [id number] [place] [address]- 6671 Apr, [facility] [place] [facility] [address] [facility] [id number] [place] [address]- 8139 Apr, [facility] [place] [facility] [address] [facility] [id number] [place] [address]- 4068 Apr, [facility] [place] [facility] [address] [facility] [id number] [place] [address]- 7893 Apr, [facility] [place] [facility] [address] [facility] [id number] [place] [address]- 4017 Apr, [facility] [place] [facility] [address] [id number] [place] [address]- 2936 Apr, [facility] [place] [facility] [address] [facility] [id number] [place] [address]- 9110 Mar, [facility] [place] [facility] [address] [id number] [place] [address]- 7115 Mar, [facility] [place] [facility] [address] [id number] [place] [address]- 1186 Mar, [facility] [address] [id number] [place] [address]- 6555 Mar, [facility] [place] [facility] [address] [id number] [place] [address]- 7044 Mar, [facility] [address] [id number] [place] [address]- 6496 Mar, [facility] [address] [id number] [place] [address]- 7490 Mar, [facility] [place] [facility] [address] [id number] [place] [address]- 3589 Mar, [facility] [address] [id number] [place] [address]- 2699 Mar, [facility] [address] [id number] [place] [address]- 4720 Mar, [facility] [place] [facility] [address] [id number] [place] [address]- 4944 Mar, [facility] [place] [facility] [address] [id number] [place] [address]- 2772 Mar, [facility] [place] [facility] [address] [id number] [place] [address]- 2317 Mar, [facility] [place] [facility] [address] [id number] [place] [address] Mar, [facility] [place] [facility] [address] [id number] [place] [address] Feb, [facility] [place] [facility] [address] [id number] [place] [address] Feb, [facility] [place] [facility] [address] [id number] [place] [address] Feb, [facility] [place] [facility] [address] [id number] [place] [address] Feb, [facility] [place] [facility] [address] [id number] [place] [address] Feb, [facility] [place] [facility] [address] [id number] [place] [address] Feb, [facility] [place] [facility] [address] [id number] [place] [address] Feb, [facility] [place] [facility] [address] [id number] [place] [address] Feb, [facility] [place] [facility] [address] [id number] [place] [address] Feb, [facility] [place] [facility] [address] [id number] [place] [address] Feb, [facility] [place] [facility] [address] [id number] [place] [address] Feb, [facility] [place] [facility] [address] [id number] [place] [address] Feb, [facility] [place] [facility] [address] [id number] [place] [address] Feb, [facility] [place] [facility] [address] [id number] [place] [address] 69[address] Feb, [facility] [place] [facility] [address] [id number], [place] [address] Feb, [facility] [place] [facility] [address] [id number], [place] [address] Feb, [facility] [place] [facility] [address] [id number] [place] [address] Dec, [facility] [place] [facility] [address] [id number] [place] [address] 24 Dec, 2012 [facility] [place] [facility] [address] [id number] [place] [address] 16 Dec, 2012 [facility] [place] [facility] [address] [id number] [place] [address] 1467 16 Dec, 2012 [facility] [address] [id number] [place] [address]- 8668 16 Dec, 2012 [facility] [place] [facility] [address] [id number] [place] [address] 16 Dec, 2012 [facility] [address] [id number] [place] [address] 14 Dec, 2012 [facility] [place] [facility] [address] [id number] [place] [address] 14 Dec, 2012 [facility] [address] [id number] [place] [address] 10 Dec, 2012 [facility] [place] [facility] [address] [id number] [place] [address] 10 Dec, 2012 [facility] [place] [facility] [address] [id number] [place] [address] 10 Dec, 2012 [facility] [address] [id number] [place] [address] 10 Dec, 2012 [facility] [place] [facility] [address] [id number] [place] [address] 03 Dec, 2012 [facility] [address] [id number] [place] [address] 25 Sep, 2012 [facility] [place] [facility] [address] [id number] [place] [address]- [address] 20 Sep, 2012 [facility] [place] [facility] [address] [id number] [place] [address] 18 Sep, 2012 [facility] [place] [facility] [address] [id number] [place] [address]- 84[address] 16 Sep, 2012 [facility] [place] [facility] [address] [id number] [place] [address]- [address] 12 Sep, 2012 [facility] [place] [facility] [address] [id number] [place] [address] Nov, [facility] [place] [facility] [address] [id number] [place] [address]- [address] 05 Nov, 2012 [facility] [place] [facility] [address] [id number] [place] [address] Oct, [facility] [place] [facility] [address] [id number] [place] [address] Oct, [facility] [place] [facility] [address] [id number] [place] [address] Sep, [facility] [place] [facility] [address] [id number] [place] [address]- [address] Sep, [facility] [place] [facility] [address] [id number] [place] [address] Sep, [facility] [place] [facility] [address] [id number] [place] [address] Sep, [facility] [place] [facility] [address] [id number] [place] [address] Sep, [facility] [place] [facility] [address] [id number] [place] [address] Sep, [facility] [place] [facility] [address] [id number] [place] [address] Sep, [facility] [place] [facility] [address] [id number] [place] [address]- [address] Aug, [facility] [place] [facility] [address] [id number], [place] [address] Aug, [facility] [place] [facility] [address] [id number] [place] [address] 16 Aug, 2012 [facility] [place] [facility] [address] [id number] [place] [address] Aug, [facility] [place] [facility] [address] [id number], [place] [address] Aug, [facility] [place] [facility] [address] [id number], [place] [address] Aug, [facility] [address] [id number] [place] [address] Aug, [facility] [address] [id number] [place] [address] Aug, [facility] [address] [id number] [place] [address] July, [facility] [address] [address] [id number] [place] [address] July, [facility] [address] [id number] [place] [address] July, [facility] [address] [id number] [place] [id number] July, [facility] [address] [id number] [place] [address] July, [facility] [address] [id number] [place] [address] Jun, [facility] [address] [id number] [place] [address] May, [facility] [address] [id number] [place] [address] 2546 May, [facility] [address] [id number] [place] [address] May, [facility] [address] [id number], [place] [address] Apr, [facility] [address] [id number] [place] [address] 2546 Apr, [facility] [address] [id number] [place] [address] Apr, [facility] [address] [id number] [place] [address] 25[address] Mar, [facility] [address] [id number] [place] [address] 28 Mar, 2012 [facility] [address] [id number] [place] [address] 28 Mar, 2012 [facility] [place] [facility] [address] [id number] [place] [address] 5866 14 Mar, 2012 [facility] [place] [facility] [address] [id number] [place] [address] 6778 10 Mar, 2012 [facility] [place] [facility] [address] [id number] [place] [address] 89[address] Mar, [facility] [place] [facility] [address] [id number] [place] [address] Mar, [facility] [address] [id number] [place] [address] Feb, [facility] [address] [id number] [place] [address] Feb, [facility] [address] [id number] [place] [address] 47[address] Feb, [facility] [place] [facility] [address] [id number] [place] [address] Feb, [facility] [address] [id number] [place] [address] 21[address] 17 Feb, 2012 [facility] [place] [facility] [address] [id number] [place] [address] 84[address] 17 Feb, 2012 [facility] [place] [facility] [address] [id number] [place] [address] 47[address] Feb, [facility] [place] [facility] [address] [id number] [place] [address] 2546 Feb, [facility] [place] [facility] [address] [id number] [place] [address] 3983 Jan, [facility] [place] [facility] [address] [id number] [place] [address] 4686 Jan, [facility] [place] [facility] [address] [id number] [place] [address] 2098 Jan, [facility] [place] [facility] [address] [id number] [place] [address] 7[address] Jan, [facility] [place] [facility] [address] [facility] [id number] [place] [address]127 Jan, [facility] [place] [facility] [address] [id number] [place] [address] 3[address] Jan, [facility] [place] [facility] [address] [id number] [place] [address] 18[address] Jan, [facility] [place] [facility] [address] [id number] [place] [address] 4993 Jan, [facility] [place] [facility] [address] [facility] [id number] [place] [address] 0028 Jan, [facility] [place] [facility] [address] [id number], [place] [address] Jan, [facility] [place] [facility] [address] [id number], [place] [address] Jan, [facility] [place] [facility] [address] [facility] [id number], [place] [address] Jan, [facility] [place] [facility] [address] [id number], [place] [address] Jan, [facility] [place] [facility] [address] [id number], [place] [address] 7138 Jan, [facility] [place] [facility] [address] [id number], [place] [address] Jan, [facility] [place] [facility] [address] [facility] [id number], [place] [address]- 69[address] Jan, [facility] [place] [facility] [address] [facility] [id number], [place] [address]- [address] Dec, [facility] [place] [facility] [address] [id number] [place] [address]321 17 Dec, 2011 [facility] [place] [facility] [address] [id number] [place] [address] 8826 16 Dec, 2011 [facility] [place] [facility] [address] [id number] [place] [address]156 16 Dec, 2011 [facility] [place] [facility] [address] [id number] [place] [address]- 1755 Dec, [facility] [place] [facility] [address] [id number] [place] [address]- 2999 Dec, [facility] [place] [facility] [address] [id number] [place] [address] 3185 Dec, [facility] [place] [facility] [address] [id number] [place] [address] 4665 Dec, [facility] [place] [facility] [address] [id number] [place] [address]- 2107 08 Dec, 2011 [facility] [place] [facility] [address] [id number] [place] [address]- 2345 05 Dec, 2011 [facility] [place] [facility] [address] [id number] [place] [address]- 6586 18 Nov, 2011 [facility] [place] [facility] [address] [id number] [place] [address]- 5254 13 Nov, 2011 [facility] [place] [facility] [address] [id number] [place] [address]- 6895 24 Oct, 2011 [facility] [place] [facility] [address] [id number] [place] [address]- 1995 22 Oct, 2011 [facility] [place] [facility] [address] [id number] [place] [address] 1467 17 Oct, 2011 [facility] [place] [facility] [address] [id number] [place] [address]- 9088 16 Oct, 2011 [facility] [place] [facility] [address] [id number] [place] [address]- 8164 Oct, [facility] [place] [facility] [address] [id number] [place] [address]- 9781 Oct, [facility] [place] [facility] [address] [id number] [place] [address]- 8187 Oct, [facility] [place] [facility] [address] [id number] [place] [address]- 0704 Sep, [facility] [place] [facility] [address] [id number] [place] [address]- 71[address] Aug, [facility] [address] [id number] [place] [address]- 3119 Aug, [facility] [place] [facility] [address] [id number] [place] [address]- 0615 Aug, [facility] [address] [id number] [place] [address]- 4277 Aug, [facility] [address] [id number] [place] [address]- 9676 Aug, [facility] [place] [facility] [address] [id number] [place] [address]- 5896 July, [facility] [place] [facility] [address] [id number] [place] [address]- 5524 July, [facility] [place] [facility] [address] [id number] [place] [address]- 8451 July, [facility] [place] [facility] [address] [id number] [place] [address]- 8926 Jun, [facility] [place] [facility] [address] [id number] [place] [address]- 2474 Jun, [facility] [place] [facility] [address] [id number] [place] [address]- 2382 Jun, [facility] [place] [facility] [address] [id number] [place] [address]- 9147 Jun, [facility] [place] [facility] [address] [id number] [place] [address]- 5727 30 May, 2011 [facility] [place] [facility] [address] [id number] [place] [address]- 2846 30 May, 2011 [facility] [place] [facility] [address] [id number] [place] [address]- 6646 29 May, 2011 [facility] [place] [facility] [address] [id number] [place] [address]- 5026 28 May, 2011 [facility] [place] [facility] [address] [id number] [place] [address]- 4961 23 May, 2011 [facility] [place] [facility] [address] [id number] [place] [address]- 2180 22 May, 2011 [facility] [place] [facility] [address] [id number] [place] [address]- 0677 21 May, 2011 [facility] [place] [facility] [address] [id number] [place] [address]- 0319 19 May, 2011 [facility] [place] [facility] [address] [id number] [place] [address]- 7215 08 May, 2011 [facility] [place] [facility] [address] [id number] [place] [address]- 8184 05 May, 2011 [facility] [place] [facility] [address] [id number] [place] [address]- 5683 02 May, 2011 [facility] [place] [facility] [address] [id number] [place] [address]- 0260 May, [facility] [place] [facility] [address] [id number] [place] [address]- 2353 Mar, [facility] [place] [facility] [address] [id number] [place] [address]- 3805 Mar, [facility] [place] [facility] [address] [id number] [place] [address]- 8381 Feb, [facility] [place] [facility] [address] [id number] [place] [address]- 9501 Feb, [facility] [place] [facility] [address] [id number] [place] [address]- 9758 20 Feb, 2011 [facility] [address] [id number] [place] [address]- 6762 15 Feb, 2011 [facility] [place] [facility] [address] [id number] [place] [address]- 4946 13 Feb, 2011 [facility] [place] [facility] [address] [id number] [place] [address]- 8076 13 Feb, 2011 [facility] [place] [facility] [address] [id number] [place] [address]- 7499 13 Feb, 2011 [facility] [place] [facility] [address] [id number] [place] [address] 28 Jan, 2011 [facility] [place] [facility] [address] [id number] [place] [address]- 2404 23 Jan, 2011 [facility] [place] [facility] [address] [id number] [place] [address]- 3169 Jan, [facility] [place] [facility] [address] [id number] [place] [address]- 3613 Jan, [facility] [place] [facility] [address] [id number] [place] [address]- 9523 Jan, [facility] [place] [facility] [address] [id number] [place] [address]- 9087 Jan, [facility] [place] [facility] [address] [id number] [place] [address]- 8897 Dec, [facility] [place] [facility] [address] [id number] [place] [address]- 3359 Dec, [facility] [place] [facility] [address] [id number] [place] [address]- 5289 Dec, [facility] [place] [facility] [address] [id number] [place] [address]- 3692 July, [facility] [place] [facility] [address] [id number] [place] [address]- 6779 July, [facility] [place] [facility] [address] [id number] [place] [address]- 6208 08 Feb, 2010 [facility] [place] [facility] [address] [id number] [place] [address]- 4141 Jan, [facility] [place] [facility] [address] [id number] [place] [address]- 6079 Dec, [facility] [place] [facility] [address] [id number] [place] [address]- 0671 Dec, [facility] [place] [facility] [address] [id number] [place] [address]- 4773 15 Sep, 2009 [facility] [place] [facility] [address] [id number] [place] [address]- 0480 Aug, [facility] [place] [facility] [address] [id number] [place] [address]- 8631 Jun, [facility] [place] [facility] [address] [id number], [place] [address]- 7371 Jun, [facility] [place] [facility] [address] [id number] [place] [address]- 4827 Jan, [facility] [place] [facility] [address] [id number], [place] [address]- 5559 Jan, [facility] [place] [facility] [address] [id number], [place] [address]- 7719 Jan, [facility] [place] [facility] [address] [id number], [place] [address]- 4158 Jan, [facility] [place] [facility] [address] [id number] [place] [address]- 6743 29 Dec, 2008 [facility] [place] [facility] [address] [id number], [place] [address]- 5647 Dec, [facility] [place] [facility] [address] [id number], [place] [address]- 0876 15 Dec, 2008 [facility] [place] [facility] [address] [id number], [place] [address]- 2546 Nov, [facility] [address] [facility] [id number], [place] [address]- [address]476 July, [facility] [address] [id number], [place] [address]- 2546 May, [facility] [address] [facility] [id number], [place] [address]- 2546 Apr, [facility] [address] [id number], [place] [address] 2546 Feb, [facility] [address] [facility] [id number], [place] [address]- 6460 Dec, IMMUNIZATIONS No Known Immunizations SOCIAL HISTORY Never Assessed REASON FOR VISIT Lab (walk-in) PLAN OF CARE VITAL SIGNS MEDICATIONS Unknown Medications RESULTS No Results PROCEDURES Procedure Date Ordered Result Body Site LIPID PANEL Dec 08, 2017 COMPREHEN METABOLIC PANEL Dec 08, 2017 COMPLETE CBC W/AUTO DIFF WBC Dec 08, 2017 INSTRUCTIONS MEDICATIONS ADMINISTERED No Known Medications [...]
--- OUTSIDE RECORDS SUMMARY | 2018-06-14 14:27 | XMS REPORT ---
Author Author ARIAN US Organization [facility] Address [address] [place] [address] Care Team Providers Care Attorney At Law Name Role Phone ARIAN US Unavailable PROBLEMS Type Condition ICD9-CM Code [id number] Code Onset Dates Condition Status SNOMED Code Problem Bipolar 1 disorder F31.9 Active 535006091 Problem Hyperlipidemia, unspecified E78.5 Active 67722940 Problem Type 2 diabetes mellitus with complication E11.8 Active 585957311 Problem Other chronic pain G89.29 Active 66001869 Problem Post laminectomy syndrome M96.1 Active 85626592 Problem Lumbago with sciatica, left side M54.42 Active 004901159 Problem Eye exam normal Z01.00 Active 015587346 Problem New daily persistent headache G44.52 Active 684745797 Problem Acute bilateral low back pain with right-sided sciatica M54.41 Active 669838268 Problem Type 2 diabetes mellitus with hyperglycemia E11.65 Active 70780241 Problem 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.4 Active 638275441 Problem Bipolar disorder, in partial remission, most recent episode manic F31.73 Active 80912710 Problem Extreme poverty Z59.5 Active 97046754 Problem Obesity, unspecified 278.00 Active 126118600 Problem Hyperlipidemia 272.4 Active 05453818 Problem Diabetes E11.9 Active 108790636 Problem Irritable bowel syndrome with diarrhea K58.0 Active 408915290 Problem 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 Active 36831081 Problem Lumbar radiculopathy M54.16 Active 666794990 Problem Non compliance with medical treatment Z91.19 Active 4961809 Problem FDC current 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 Z79.891 Active 065030580 ALLERGIES No Information ENCOUNTERS Encounter Location Date Diagnosis [facility] [id number], [place] [address] Mar, [facility] [address], [place] [address] Dec, [place] [id number] [place] [address] 23678- 6400 Nov, [place] [id number] [place] [address] 23667- 8262 Nov, Type 2 diabetes mellitus with complication E11.8 [place] [id number] [place] [address] 70850- 2715 Nov, 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 and Bipolar disorder, in partial remission, most recent episode manic F31.73 [place] [id number] [place] [address] 81518- 4414 Nov, Type 2 diabetes mellitus with complication E11.8 [place] [id number] [place] [address] 33997- 5144 Nov, Bipolar 1 disorder F31.9 ; 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 and Extreme poverty Z59.5 [place] [id number] [place] [address] 85046- 6360 Nov, Type 2 diabetes mellitus with complication E11.8 ; Pain of left upper arm M79.622 ; Pain in right upper arm M79.621 ; Hyperglycemia R73.9 ; Lumbago with sciatica, left side M54.42 and Other chronic pain G89.29 [place] [id number] [place] [address] 05276- 3414 Oct, Bipolar 1 disorder F31.9 ; 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 and Extreme poverty Z59.5 [place] [id number] [place] [address] 58540- 1038 Oct, Type 2 diabetes mellitus with hyperglycemia E11.65 ; FDC current use of insulin Z79.4 and Other acute gastritis without hemorrhage K29.00 [place] [address] [place] [address] 58620- 7474 Oct, Bipolar 1 disorder F31.9 ; 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 and Extreme poverty Z59.5 [place] [address] [place] [address] 54923- 2842 Sep, Diarrhea, unspecified R19.7 and Vomiting, unspecified R11.10 [facility] [id number] [place] [address] 94994- 3063 Aug, Type 2 diabetes mellitus with complication E11.8 [place] [id number] [place] [address] 31286- 1956 Aug, [place] [id number] [place] [address] 69672- 9214 Aug, Bipolar 1 disorder F31.9 ; 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 and Extreme poverty Z59.5 [place] [address] [place] [address] 89977- 8235 Aug, 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 and Bipolar disorder, in partial remission, most recent episode manic F31.73 [place] [id number] [place] [address] 23636- 9843 Aug, Bipolar 1 disorder F31.9 [place] [id number] [place] [address] 20653- 1581 Aug, [place] [id number] [place] [address] 30982- 3799 Aug, [place] [id number] [place] [address] 36969- 5868 Aug, Bipolar 1 disorder F31.9 ; 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 and Extreme poverty Z59.5 [place] [id number] [place] [address] 39934- 9876 July, Type 2 diabetes mellitus with complication E11.8 [place] [address] [place] [address] 89050- 0382 July, Bipolar 1 disorder F31.9 ; 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 and Extreme poverty Z59.5 [place] [id number] [place] [address] 12676- 1396 Jun, Bipolar 1 disorder F31.9 ; 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 and Extreme poverty Z59.5 [place] [id number] [place] [id number] Jun, Bipolar 1 disorder F31.9 ; 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 and Extreme poverty Z59.5 [place] [id number] [place] [address] 71899- 1376 Jun, Bipolar 1 disorder F31.9 ; 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 and Extreme poverty Z59.5 [place] [address] [address]77[address]- 3477 May, Urinary tract infection without hematuria, site unspecified N39.0 [place] [id number] [place] [address] 32085- 3328 May, Bipolar 1 disorder F31.9 ; 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 and Extreme poverty Z59.5 [place] [id number] [place] [address] 48775- 7096 Apr, Diabetes E11.9 and Breast cancer screening Z12.31 [place] [id number] [place] [address] 61644- 0393 Apr, Bipolar 1 disorder F31.9 and 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 [place] [id number] [place] [address] 43719- 6530 Mar, Bipolar 1 disorder F31.9 ; 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 and Extreme poverty Z59.5 [place] [id number] [place] [address] 10910- 1166 Mar, New daily persistent headache G44.52 ; Leg pain 729.5 and History of carpal tunnel release Z98.890 [place] [id number] [place] [address] 54114- 8919 Mar, Hyperlipidemia, unspecified E78.5 [place] [address] [place] [address] 51218- 8772 Mar, Bipolar 1 disorder F31.9 ; 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 and Extreme poverty Z59.5 [place] [id number] [place] [address] 99939- 0643 Feb, Bipolar 1 disorder F31.9 ; 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 and Extreme poverty Z59.5 [place] [id number] [place] [address] 24936- 0450 Feb, Diabetes E11.[address] 84186- 9348 Feb, Viral syndrome B34.9 [id number] [place] [address] 91804- 0678 Jan, Other viral agents as the cause of diseases classified elsewhere B97.89 and Acute upper respiratory infection, unspecified J06.9 [id number] [place] [address] 22947- 1316 Jan, Bipolar 1 disorder F31.9 and 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 [id number] [place] [address] 18185- 5034 Jan, Bipolar 1 disorder F31.9 ; 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 and Extreme poverty Z59.5 [place] [id number] [place] [address] 77413- 9475 Dec, Diabetes E11.9 [place] [id number] [place] [address] 59787- 5571 Dec, Diabetes E11.9 and Encounter for immunization Z23 [id number] [place] [address] 03325- 0354 Dec, Bipolar 1 disorder F31.9 ; 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 and Extreme poverty Z59.5 [id number] [place] [address] 59866- 3192 Dec, Back pain M54.9 [facility] [address], [place] [address] 8500 Nov, [facility] [id number] [place] [address] 91315- 8873 Nov, Bipolar 1 disorder F31.9 ; 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 and Extreme poverty Z59.5 [facility] [id number] [place] [address] 12782- 7678 Nov, Bipolar 1 disorder F31.9 ; 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 and Extreme poverty Z59.5 [place] [address] [place] [address] 37529- 6451 Oct, 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 and Bipolar 1 disorder F31.9 [place] [id number] [place] [address] 60461- 4639 Oct, Back pain M54.9 [facility] [id number] [place] [address] 95821- 2963 Oct, Bipolar 1 disorder F31.9 ; 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 and Extreme poverty Z59.5 [place] [address] [place] [address] 55789- 4198 Oct, 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 and Type 2 diabetes mellitus with complication E11.8 [place] [address] [place] [address] 43393- 7760 Sep, Bipolar 1 disorder F31.9 ; 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 and Extreme poverty Z59.5 [facility] [address], [place] [address]- 9568 Sep, 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 and Bipolar 1 disorder F31.9 [facility] [id number] [place] [address] 99637- 3705 Sep, Bipolar 1 disorder F31.9 ; 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 and Extreme poverty Z59.5 [facility] [id number] [place] [address]- 2820 Aug, Diabetes E11.9 ; Hyperlipidemia, unspecified E78.5 and Lumbar radiculopathy M54.16 [facility] [id number] [place] [address] 95441- 1615 15 Aug, 2016 Bipolar 1 disorder F31.9 ; 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 and Extreme poverty Z59.5 [place] [id number] [place] [address] 73493- 0876 Aug, [place] [id number] [place] [address] 22891- 4207 Aug, [place] [id number] [place] [address] 17819- 2190 Aug, [place] [id number] [place] [address] 26476- 9770 July, [place] [id number] [place] [address] 40135- 5144 July, Acute bilateral low back pain with right-sided sciatica M54.41 [place] [id number] [place] [address] 85854- 6474 July, Bipolar 1 disorder F31.9 ; 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 and Extreme poverty Z59.5 [place] [id number] [place] [address] 00877- 9998 July, Back pain M54.9 and Diabetes E11.9 [place] [address] [place] [address] 62398- 8749 Jun, Bipolar 1 disorder F31.9 ; 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 and Extreme poverty Z59.5 [place] [id number] [place] [address] 95454- 3810 Jun, Bipolar 1 disorder F31.9 ; 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 and Extreme poverty Z59.5 [place] [id number] [place] [address] 81289- 1374 May, Visit for pelvic exam Z01.419 ; Acute vaginitis N76.0 and Diabetes E11.9 [place] [id number] [place] [address] 57112- 9034 16 May, 2016 Bipolar 1 disorder F31.9 ; 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 and Extreme poverty Z59.5 [place] [id number] [place] [address] 98693- 2770 08 May, 2016 [place] [id number] [place] [address] 27598- 0005 May, [place] [id number] [place] [address] 56844- 7204 02 May, 2016 Bipolar 1 disorder F31.9 ; 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 and Extreme poverty Z59.5 [place] [id number] [place] [address] 68013- 9546 May, Hyperlipidemia, unspecified E78.5 [place] [id number] [place] [address] 51077- 8985 13 Apr, 2016 Breast cancer screening Z12.39 [place] [id number] [place] [address] 28863- 8373 Mar, [place] [id number] [place] [address] 66034- 9682 Mar, Bipolar disorder, current episode mixed, unspecified F31.60 [place] [id number] [place] [address] 98031- 2866 Mar, Bipolar 1 disorder F31.9 ; 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 and Extreme poverty Z59.5 [place] [id number] [place] [address] 05020- 3351 Feb, Acute nasopharyngitis J00 [place] [id number] [place] [address] 87646- 4248 Feb, Dental examination Z01.20 [place] [id number] [place] [address] 09380- 0115 21 Feb, 2016 Dental cavities K02.9 and Chronic periodontitis, unspecified K05.30 [address] [place] [id number] [place] [address] 92403- 1188 13 Feb, 2016 Low back pain M54.5 and Extreme poverty Z59.[address] 30739- 8528 08 Feb, 2016 [id number] [place] [address] 58476- 7270 05 Feb, 2016 Routine gynecological examination V72.31 ; Breast cancer screening Z12.39 and Herpes simplex type 1 infection B00.9 [address] [id number] [place] [address] 14402- 6491 02 Feb, 2016 Diabetes E11.[address] 67560- 8359 Feb, Encounter for dental examination and cleaning without abnormal findings Z01.20 [id number] [place] [address] 46258- 6668 22 Jan, 2016 Hyperlipidemia, unspecified E78.5 [id number] [place] [address] 91369- 2802 22 Jan, 2016 Bipolar 1 disorder F31.9 ; 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 and Extreme poverty Z59.5 [address] [id number] [place] [address] 56322- 2959 18 Jan, 2016 Diabetes E11.9 [id number] [place] [address] 59996- 7911 17 Jan, 2016 Diabetes E11.9 [address] [place] [id number] [place] [address] 68379- 7317 14 Dec, 2015 Bipolar 1 disorder F31.9 ; 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 and Extreme poverty Z59.5 [id number] [place] [address] 05518- 3424 Dec, Bipolar disorder, current episode mixed, unspecified F31.60 and 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 [place] [id number] [place] [address] 62098- 1759 16 Nov, 2015 Bipolar 1 disorder F31.9 ; 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 ; Extreme poverty Z59.5 and Non compliance with medical treatment Z91.19 [place] [id number] [place] [address] 52293- 8771 Oct, [place] [id number] [place] [address] 39974- 0451 Oct, Dental caries K02.9 [place] [id number] [place] [address] 45897- 0366 Oct, Low back pain M54.5 and Other chronic pain G89.29 [place] [id number] [place] [address] 22470- 5409 Oct, Bipolar 1 disorder F31.9 ; 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 ; Extreme poverty Z59.5 and Non compliance with medical treatment Z91.19 [place] [id number] [place] [address] 68788- 6851 Oct, [place] [id number] [place] [address] 55092- 8072 Oct, [place] [id number] [place] [address] 80962- 1477 Oct, Dental examination Z01.20 [place] [id number] [place] [address] 84150- 8212 Oct, Bipolar 1 disorder F31.9 ; 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 ; Extreme poverty Z59.5 and Non compliance with medical treatment Z91.19 [place] [id number] [place] [address] 95873- 5935 04 Oct, 2015 [place] [id number] [place] [address] 71052- 0966 Sep, Type 2 diabetes mellitus with complication E11.8 [place] [address], [place] [address]- 5760 Sep, Bipolar disorder, current episode mixed, unspecified F31.60 [place] [address], [place] [address]- 7203 Sep, Bipolar disorder, current episode mixed, unspecified F31.60 [place] [id number] [place] [address] 04986- 4089 Sep, Bipolar disorder, in partial remission, most recent episode manic F31.73 ; 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 ; Extreme poverty Z59.5 and Non compliance with medical treatment Z91.19 [place] [address], [place] [address]- 9982 Aug, Bipolar disorder, in partial remission, most recent episode manic F31.73 ; 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 ; Extreme poverty Z59.5 and Non compliance with medical treatment Z91.19 [place] [address], [place] [address]- 3557 Aug, Bipolar disorder, in partial remission, most recent episode manic F31.73 ; 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 ; Extreme poverty Z59.5 and Non compliance with medical treatment Z91.19 [place] [address], [place] [address]- 1304 Aug, [place] [address] [place] [address] 65263- 9353 July, Bipolar disorder, in partial remission, most recent episode manic F31.73 ; 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 ; Extreme poverty Z59.5 and Non compliance with medical treatment Z91.19 [place] [address], [place] [address]- 4047 July, Bipolar disorder, current episode mixed, unspecified F31.60 [place] [address] [place] [address] 16898- 3424 July, Bipolar disorder, in partial remission, most recent episode manic F31.73 ; 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 ; Extreme poverty Z59.5 and Non compliance with medical treatment Z91.19 [place] [address] [place] [address] 98414- 3084 05 Jul, 2015 FDC current 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 Z79.891 and Chronic pain G89.29 [place] [id number] [place] [address] 87035- 0681 Jun, terminal manager current 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 Z79.891 and Bipolar 1 disorder F31.9 [place] [id number] [place] [address] 48739- 4083 Jun, [place] [id number] [place] [address] 89980- 4688 Jun, [place] [id number] [place] [address] 29888- 0950 Jun, [place] [id number] [place] [address] 60340- 8504 Jun, Bipolar disorder, in partial remission, most recent episode manic F31.73 ; 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 and Non compliance with medical treatment Z91.19 [place] [address] [place] [address] 87398- 4208 May, Bipolar disorder, in partial remission, most recent episode manic F31.73 ; 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 and Non compliance with medical treatment Z91.19 [place] [address] [place] [address] 57265- 4045 May, Bipolar disorder, in partial remission, most recent episode manic F31.73 [place] [id number] [place] [address] 48608- 8506 May, Diabetes E11.9 and Chronic pain G89.29 [place] [id number] [place] [address] 98915- 6030 May, [place] [address] [place] [address] 54174- 4367 May, Bipolar disorder, in partial remission, most recent episode manic F31.73 ; Non compliance with medical treatment Z91.19 and 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 [place] [id number] [place] [address] 18395- 1661 May, Type 2 diabetes mellitus with complication E11.8 and Back pain M54.9 [place] [id number] [place] [address] 91362- 8852 May, Bipolar disorder, in partial remission, most recent episode manic F31.73 and 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 [place] [id number] [place] [address] 96198- 7153 24 Apr, 2015 [place] [id number] [place] [address] 73833- 6522 Apr, [place] [id number] [place] [address] 58311- 6606 Apr, [place] [id number] [place] [address] 85669- 8467 09 Apr, 2015 Diabetes E11.9 ; Irritable bowel syndrome with diarrhea K58.0 and Lumbar radiculopathy M54.16 [place] [id number] [place] [address] 82793- 2652 02 Apr, 2015 Breast screening Z12.39 [place] [id number] [place] [address] 23384- 8649 02 Apr, 2015 Bipolar disorder, in partial remission, most recent episode manic F31.73 ; Non compliance with medical treatment Z91.19 and 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 [place] [id number] [place] [address] 96575- 0458 Mar, Edema, unspecified type R60.9 and Type 2 diabetes mellitus with complication E11.8 [place] [id number] [address]- 8514 20 Mar, 2015 Bipolar disorder, in partial remission, most recent episode manic F31.73 ; Non compliance with medical treatment Z91.19 ; 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 and Extreme poverty Z59.5 [place] [address] [place] [address] 95185- 5719 14 Mar, 2015 Bipolar disorder, current episode mixed, unspecified F31.60 ; 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 ; Extreme poverty Z59.5 and Generalized anxiety disorder F41.1 [place] [id number] [place] [address] 39301- 1216 12 Mar, 2015 Bipolar disorder, in partial remission, most recent episode manic F31.73 ; 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 and Extreme poverty Z59.5 [place] [id number] [place] [address] 90653- 6386 Feb, Bipolar disorder, in partial remission, most recent episode manic F31.73 ; 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 and Extreme poverty Z59.5 [place] [id number] [place] [address] 91838- 6917 Feb, Bipolar disorder, in partial remission, most recent episode manic F31.73 ; 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 and Extreme poverty Z59.5 [place] [id number] [place] [phone] Feb, [place] [address] [place] [id number] [place] [address] [phone] Jan, Type 2 diabetes mellitus with complication E11.8 and Petechiae R23.3 [place] [address] [place] [id number] [place] [address] [phone] Jan, Type 2 diabetes mellitus with complication E11.8 ; Edema, unspecified R60.9 ; Petechiae R23.3 and Diabetes E11.9 [place] [id number] [place] [phone] Jan, Bipolar disorder, in partial remission, most recent episode manic F31.73 ; 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 and Extreme poverty Z59.5 [place] [id number] [place] [address] 09392- 8363 Jan, Bipolar disorder, in partial remission, most recent episode manic F31.73 ; 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 and Extreme poverty Z59.5 [place] [id number] [place] [address] 91908- 1979 Dec, Bipolar disorder, in partial remission, most recent episode manic F31.73 [place] [address] [address]84- 4786 Dec, Edema, due to unspecified malnutrition type, unspecified edema R60.9 and Essential hypertension I10 [place] [address] 27326- 8530 Dec, Bipolar disorder, in partial remission, most recent episode manic F31.73 [place] [id number] [place] [address] 30415- 6582 Nov, Bipolar I disorder, most recent episode (or current) mixed, unspecified 296.60 [place] [id number] [place] [address] 72799- 9114 Nov, Stress incontinence, female 625.6 ; Back pain 724.5 and Leg pain 729.5 [place] [id number] [place] [address] 24997- 8032 Nov, Generalized anxiety disorder 300.02 and Bipolar II disorder 296.89 [place] [id number] [place] [address] 11842- 9187 Nov, Bipolar I disorder, most recent episode (or current) mixed, unspecified 296.60 [place] [id number] [place] [address] 94715- 9450 Oct, [place] [address] 46845- 5790 Oct, [facility] [address] [address] Oct, [facility] [id number] [place] [address] 288801- 3550 Oct, Bipolar I disorder, most recent episode (or current) mixed, unspecified 296.60 [facility] [id number] [place] [address] 49185- 8699 Sep, Diabetes 250.00 [facility] [id number] [place] [address] [id number]- 4833 Sep, Bipolar I disorder, most recent episode (or current) mixed, unspecified 296.60 [facility] [id number] [place] [address] 11855- 7763 Sep, [facility] [id number] [address] 4076 Sep, [facility] [id number] [place] [address] 52137- 0212 Sep, Bipolar I disorder, most recent episode (or current) mixed, unspecified 296.60 [facility] [address], [place] [address]- 3696 Sep, Bipolar I disorder, most recent episode (or current) mixed, unspecified 296.60 [facility] [address], [place] [address]- 9886 Sep, [facility] [id number] [address] 2546 Sep, Anxiety 300.00 ; Diabetes 250.00 and Hyperlipidemia 272.4 [facility] [id number] [address] 4829 Aug, [facility] [address], [place] [address]- 7386 Aug, [facility] [address], [place] [address]- 2872 Aug, [facility] [address], [place] [address]- 7943 Aug, Bipolar I disorder, most recent episode (or current) mixed, unspecified 296.60 [facility] [address], [place] [address]- 4746 Aug, Generalized anxiety disorder 300.02 and Bipolar II disorder 296.89 [facility] [id number] [place] [address] 141809- 9136 July, Bipolar I disorder, most recent episode (or current) mixed, unspecified 296.60 [facility] [id number] [place] [address] 66978- 9446 July, Cough 786.2 [facility] [id number] [place] [address] 53351- 9246 July, Bipolar I disorder, most recent episode (or current) mixed, unspecified 296.60 [facility] [address], [place] [address]- 6564 30 Jun, 2014 Diabetes 250.00 [facility] [id number] [address]- 7806 14 Jun, 2014 [facility] [address], [place] [address]- 6366 Jun, [facility] [address], [place] [address]- 9096 May, [facility] [address], [place] [address]- 8296 May, [facility] [address], [place] [address]- 0316 May, [facility] [address], [place] [address]- 4426 May, [facility] [address], [place] [address]- 1436 May, [facility] [place] [facility] [address] [id number] [place] [address]- 0448 May, [facility] [place] [facility] [address] [id number] [place] [address]- 2279 Apr, 2014 [facility] [place] [facility] [address] [id number] [place] [address]- 1106 Apr, 2014 [facility] [place] [facility] [address] [id number] [place] [address]- 0940 Apr, [facility] [place] [facility] [address] [id number] [place] [address]- 4163 Apr, 2014 [facility] [place] [facility] [address] [id number] [place] [address]- 7666 Apr, 2014 [facility] [place] [facility] [address] [id number] [place] [address]- 2191 Apr, [facility] [place] [facility] [address] [id number] [place] [address]- 1992 Apr, [facility] [place] [facility] [address] [id number] [place] [address]- 5751 Apr, [facility] [place] [facility] [address] [facility] [id number] [place] [address]- 9334 Mar, [facility] [place] [facility] [address] [id number] [place] [address]- 3492 Mar, [facility] [place] [facility] [address] [id number] [place] [address]- 7191 Mar, [facility] [place] [facility] [address] [id number] [place] [address]- 5590 Mar, [facility] [place] [facility] [address] [id number] [place] [address]- 2415 Mar, [facility] [place] [facility] [address] [id number] [place] [address]- 1912 Mar, [facility] [place] [facility] [address] [id number] [place] [address]- 6629 13 Mar, 2014 [facility] [place] [facility] [address] [id number] [place] [address]- 7421 Mar, [facility] [place] [facility] [address] [id number] [place] [address]- 7797 Feb, [facility] [place] [facility] [address] [id number] [place] [address]- 0096 Feb, [facility] [place] [facility] [address] [id number] [place] [address]- 6172 Feb, [facility] [place] [facility] [address] [id number] [place] [address]- 2876 Feb, [facility] [place] [facility] [address] [id number] [place] [address]- 5501 Feb, [facility] [place] [facility] [address] [id number] [place] [address]- 2241 Feb, [facility] [place] [facility] [address] [id number] [place] [address]- 5023 Feb, [facility] [place] [facility] [address] [id number] [place] [address]- 7688 Feb, [facility] [place] [facility] [address] [id number] [place] [address]- 4609 Feb, [facility] [place] [facility] [address] [id number] [place] [address]- 8457 Feb, [facility] [place] [facility] [address] [id number] [place] [address]- 7249 Jan, [facility] [place] [facility] [address] [id number] [place] [address]- 7445 Jan, [facility] [place] [facility] [address] [id number] [place] [address]- 7717 Jan, [facility] [place] [facility] [address] [id number] [place] 1463 Jan, [facility] [place] [facility] [address] [id number] [place] [address]- 7737 Jan, [facility] [place] [facility] [address] [id number] [place] [address]- 1317 Jan, [facility] [place] [facility] [address] [id number] [place] [address]- 3928 Jan, [facility] [place] [facility] [address] [id number] [place] [address]- 0187 Jan, [facility] [place] [facility] [address] [id number] [place] [address]- 5652 Jan, [facility] [place] [facility] [address] [id number] [place] [address]- 6858 Jan, [facility] [place] [facility] [address] [id number] [place] [address]- 2101 Jan, [facility] [place] [facility] [address] [id number] [place] [address]- 4656 Jan, [facility] [place] [facility] [address] [id number] [place] [address]- 8436 Jan, [facility] [place] [facility] [address] [id number] [place] [address]- 5455 Jan, [facility] [place] [facility] [address] [id number] [place] [address]- 5259 Jan, [facility] [place] [facility] [address] [id number] [place] [address]- 9360 Dec, [facility] [place] [facility] [address] [id number] [place] [address]- 3768 Dec, [facility] [place] [facility] [address] [id number] [place] [address]- 1256 Dec, [facility] [place] [facility] [address] [id number] [place] [address]- 4519 Dec, [facility] [place] [facility] [address] [id number] [place] [address]- 8271 09 Dec, 2013 [facility] [place] [facility] [address] [id number] [place] [address]- 2309 09 Dec, 2013 [facility] [place] [facility] [address] [id number] [place] [address]- 6110 Dec, 2013 [facility] [place] [facility] [address] [id number] [place] [address]- 9451 Dec, 2013 [facility] [place] [facility] [address] [id number] [place] [address]- 4583 25 Nov, 2013 [facility] [place] [facility] [address] [id number] [place] [address]- 4926 25 Sep, 2013 [facility] [place] [facility] [address] [id number] [place] [address]- 8995 10 Nov, 2013 [facility] [place] [facility] [address] [id number] [place] [address]- 8101 10 Nov, 2013 [facility] [place] [facility] [address] [id number] [place] [address]- 7943 08 Sep, 2013 [facility] [place] [facility] [address] [id number] [place] [address]- 8056 08 Sep, 2013 [facility] [place] [facility] [address] [id number] [place] [address]- 0569 08 Sep, 2013 [facility] [place] [facility] [address] [id number], [place] [address]- 1411 08 Sep, 2013 [facility] [place] [facility] [address] [id number], [place] [address]- 3969 08 Sep, 2013 [facility] [place] [facility] [address] [id number] [place] [address]- 2543 08 Sep, 2013 [facility] [place] [facility] [address] [id number] [place] [address]- 9569 04 Sep, 2013 [facility] [place] [facility] [address] [id number] [place] [address]- 3716 04 Sep, 2013 [facility] [place] [facility] [address] [id number] [place] [address]- 2980 Nov, [facility] [place] [facility] [address] [id number] [place] [address]- 5887 Nov, [facility] [place] [facility] [address] [id number] [place] [address]- 7275 Nov, [facility] [place] [facility] [address] [id number] [place] [address]- 0917 Oct, [facility] [place] [facility] [address] [id number] [place] [address]- 1482 Oct, [facility] [place] [facility] [address] [id number] [place] [address]- 7695 Oct, [facility] [place] [facility] [address] [id number] [place] [address]- 7101 Oct, [facility] [place] [facility] [address] [id number] [place] [address]- 9357 Oct, [facility] [place] [facility] [address] [id number] [place] [address]- 8749 Oct, [facility] [place] [facility] [address] [id number] [place] [address]- 0333 Oct, [facility] [place] [facility] [address] [id number] [place] [address]- 8602 Oct, [facility] [place] [facility] [address] [id number] [place] [address]- 3064 Oct, [facility] [place] [facility] [address] [id number] [place] [address]- 0562 Oct, [facility] [place] [facility] [address] [id number] [place] [address]- 4464 Oct, [facility] [place] [facility] [address] [id number] [place] [address]- 5507 Oct, [facility] [place] [facility] [address] [id number] [place] [address]- 7744 Oct, [facility] [place] [facility] [address] [id number] [place] [address]- 3616 Oct, [facility] [place] [facility] [address] [id number] [place] [address]- 2500 Sep, [facility] [place] [facility] [address] [id number] [place] [address]- 8210 Sep, [facility] [place] [facility] [address] [id number] [place] [address]- 9131 Sep, [facility] [place] [facility] [address] [id number] [place] [address]- 6233 Sep, [facility] [place] [facility] [address] [id number] [place] [address]- 0374 Sep, [facility] [place] [facility] [address] [id number] [place] [address]- 6562 Sep, [facility] [place] [facility] [address] [id number] [place] [address]- 7343 Sep, [facility] [place] [facility] [address] [id number] [place] [address]- 4641 Sep, [facility] [place] [facility] [address] [id number] [place] [address]- 4428 Aug, [facility] [place] [facility] [address] [id number] [place] [address]- 3090 Aug, [facility] [place] [facility] [address] [id number] [place] [address]- 1616 Aug, [facility] [place] [facility] [address] [id number] [place] [address]- 3411 Aug, [facility] [place] [facility] [address] [id number] [place] [address]- 1985 Aug, [facility] [place] [facility] [address] [id number] [place] [address]- 2715 Aug, [facility] [place] [facility] [address] [id number] [place] [address]- 7719 Aug, [facility] [place] [facility] [address] [id number] [place] [address]- 5765 Aug, [facility] [place] [facility] [address] [id number] [place] [address]- 3809 July, [facility] [place] [facility] [address] [id number] [place] [address]- 7852 July, [facility] [place] [facility] [address] [id number] [place] [address]- 5314 July, [facility] [place] [facility] [address] [id number] [place] [address]- 9385 July, [facility] [place] [facility] [address] [id number] [place] [address]- 4442 July, [facility] [place] [facility] [address] [id number] [place] [address]- 4796 July, [facility] [place] [facility] [address] [id number] [place] [address]- 2956 July, [facility] [place] [facility] [address] [id number] [place] [address]- 5835 July, [facility] [place] [facility] [address] [id number] [place] [address]- 0903 Jun, [facility] [place] [facility] [address] [id number] [place] [address]- 4562 Jun, [facility] [place] [facility] [address] [id number] [place] [address]- 0257 Jun, [facility] [place] [facility] [address] [id number] [place] [address]- 3240 Jun, [facility] [place] [facility] [address] [id number] [place] [address]- 2052 Jun, [facility] [place] [facility] [address] [id number] [place] [address]- 2501 Jun, [facility] [place] [facility] [address] [id number] [place] [address]- 1588 15 Jun, 2013 [facility] [place] [facility] [address] [id number] [place] [address]- 9147 15 Jun, 2013 [facility] [place] [facility] [address] [id number] [place] [address]- 1396 Jun, [facility] [place] [facility] [address] [id number] [place] [address]- 9660 Jun, [facility] [place] [facility] [address] [id number] [place] [address]- 3600 Jun, [facility] [place] [facility] [address] [id number] [place] [address]- 5244 Jun, [facility] [place] [facility] [address] [id number] [place] [address]- 5490 May, [facility] [place] [facility] [address] [id number] [place] [address]- 8519 May, [facility] [place] [facility] [address] [id number] [place] [address]- 6480 May, [facility] [place] [facility] [address] [id number] [place] [address]- 1698 May, [facility] [place] [facility] [address] [id number] [place] [address]- 4968 May, [facility] [place] [facility] [address] [id number] [place] [address]- 0946 May, [facility] [place] [facility] [address] [id number] [place] [address]- 9073 May, [facility] [place] [facility] [address] [id number] [place] [address]- 4484 May, [facility] [place] [facility] [address] [id number] [place] [address]- 5669 May, [facility] [place] [facility] [address] [id number] [place] [address]- 1175 May, [facility] [place] [facility] [address] [id number] [place] [address]- 0741 May, [facility] [place] [facility] [address] [id number] [place] [address]- 4959 May, [facility] [place] [facility] [address] [id number] [place] [address]- 8226 May, [facility] [place] [facility] [address] [id number] [place] [address]- 7082 May, [facility] [place] [facility] [address] [id number] [place] [address]- 2335 Apr, [facility] [place] [facility] [address] [id number] [place] [address]- 1060 Apr, [facility] [place] [facility] [address] [id number] [place] [address]- 8717 Apr, [facility] [place] [facility] [address] [id number] [place] [address]- 2265 Apr, [facility] [place] [facility] [address] [id number] [place] [address]- 9171 Apr, [facility] [place] [facility] [address] [id number] [place] [address]- 2799 Apr, [facility] [place] [facility] [address] [id number] [place] [address]- 0367 Mar, [facility] [place] [facility] [address] [id number] [place] [address]- 1017 Mar, [facility] [place] [facility] [address] [id number] [place] [address]- 8105 Mar, [facility] [place] [facility] [address] [id number] [place] [address]- 6279 Mar, [facility] [place] [facility] [address] [id number] [place] [address]- 5527 Mar, [facility] [place] [facility] [address] [id number] [place] [address]- 0615 Mar, [facility] [address] [id number] [place] [address]- 0743 Mar, [facility] [address] [id number] [place] [address]- 8254 Mar, [facility] [address] [id number] [place] [address]- 3386 Mar, [facility] [address] [id number] [place] [address]- 2420 Mar, [facility] [address] [id number] [place] [address]- 8739 Mar, [facility] [address] [id number] [place] [address]- 4999 Mar, [facility] [address] [id number] [place] [address]- 5894 Mar, [facility] [address] [id number] [place] [address]- 8209 Mar, [facility] [address] [id number] [place] [address]- [address] Feb, [facility] [address] [id number] [place] [address]- 6634 Feb, [facility] [address] [id number] [place] [address] Feb, [facility] [address] [id number] [place] [address] Feb, [facility] [place] [facility] [address] [id number] [place] [address] Feb, [facility] [place] [facility] [address] [id number] [place] [address] Feb, [facility] [address] [id number] [place] [address] Feb, [facility] [place] [facility] [address] [id number] [place] [address] Feb, 2012 [facility] [place] [facility] [address] [id number] [place] [address] Feb, [facility] [place] [facility] [address] [id number] [place] [address] Feb, 2012 [facility] [place] [facility] [address] [id number] [place] [address] Feb, 2012 [facility] [place] [facility] [address] [id number] [place] [address] Feb, 2012 [facility] [place] [facility] [address] [id number] [place] [address] Feb, [facility] [place] [facility] [address] [id number] [place] [address] Feb, [facility] [place] [facility] [address] [id number], [place] [address] Feb, [facility] [place] [facility] [address] [id number], [place] [address] Feb, [facility] [place] [facility] [address] [id number], [place] [address] Dec, [facility] [place] [facility] [address] [id number], [place] [address] 24 Dec, 2012 [facility] [place] [facility] [address] [id number], [place] [address] Dec, [facility] [place] [facility] [address] [id number], [place] [address] Dec, [facility] [place] [facility] [address] [id number], [place] [address] Dec, [facility] [place] [facility] [address] [id number], [place] [address] Dec, [facility] [place] [facility] [address] [id number], [place] [address] 14 Dec, 2012 [facility] [place] [facility] [address] [id number] [place] [address]- [address]80 14 Dec, 2012 [facility] [place] [facility] [address] [id number], [place] [address] 10 Dec, 2012 [facility] [place] [facility] [address] [facility] [id number] [place] [address] 10 Dec, 2012 [facility] [place] [facility] [address] [id number] [place] [address] 1405 10 Dec, 2012 [facility] [place] [facility] [address] [id number] [place] [address]- [address]472 10 Dec, 2012 [facility] [place] [facility] [address] [id number] [place] [address] 9824 03 Dec, 2012 [facility] [place] [facility] [address] [facility] [id number], [place] [address] 25 Nov, 2012 [facility] [place] [facility] [address] [id number] [place] [address]60 20 Nov, 2012 [facility] [place] [facility] [address] [facility] [id number] [place] [address] 0446 18 Nov, 2012 [facility] [place] [facility] [address] [facility] [id number] [place] [address]- 3229 16 Nov, 2012 [facility] [place] [facility] [address] [id number] [place] [address]- 4253 12 Nov, 2012 [facility] [place] [facility] [address] [id number], [place] [address]- [address] 11 Nov, 2012 [facility] [place] [facility] [address] [id number] [place] [address] 6[address] 05 Nov, 2012 [facility] [place] [facility] [address] [facility] [id number], [place] [address] 15 Oct, 2012 [facility] [place] [facility] [address] [facility] [id number], [place] [address] 03 Oct, 2012 [facility] [place] [facility] [address] [id number] [place] [address] 24 Sep, 2012 [facility] [place] [facility] [address] [id number] [place] [address]- [address]191 23 Sep, 2012 [facility] [place] [facility] [address] [id number] [place] [address]- [address] Sep, [facility] [place] [facility] [address] [id number] [place] [address]- [address]23 17 Sep, 2012 [facility] [place] [facility] [address] [id number] [place] [address]- [address]872 15 Sep, 2012 [facility] [place] [facility] [address] [id number] [place] [address]- [address]598 Sep, [facility] [place] [facility] [address] [id number] [place] [address]- [address] Sep, [facility] [place] [facility] [address] [id number] [place] [address]- [address]18 Aug, [facility] [place] [facility] [address] [id number] [place] [address]- 2869 18 Aug, 2012 [facility] [place] [facility] [address] [id number] [place] [address]- 5416 16 Aug, 2012 [facility] [place] [facility] [address] [id number] [place] [address]- 4196 Aug, [facility] [place] [facility] [address] [id number] [place] [address]- 2314 Aug, [facility] [place] [facility] [address] [id number] [place] [address] Aug, [facility] [place] [facility] [address] [id number] [place] [address]- 2657 Aug, [facility] [place] [facility] [address] [id number] [place] [address]- 224[address] Aug, [facility] [place] [facility] [address] [id number] [place] [address] July, [facility] [address] [id number] [place] [address] 7914 July, [facility] [address] [id number] [place] [address]32 July, [facility] [address] [id number] [place] [id number] July, [facility] [address] [id number] [place] [address] July, [facility] [address] [id number] [place] [address] 228[address] Jun, [facility] [address] [id number] [place] [address] 6900 May, [facility] [address] [id number] [place] [address] 49[address] May, [facility] [address] [id number] [place] [address] 0472 May, [facility] [facility] [address] [id number] [place] [address] Apr, [facility] [address] [id number] [place] [address] Apr, [facility] [address] [id number] [place] [address] Apr, [facility] [address] [id number], [place] [address] Mar, [facility] [address] [id number] [place] [address] Mar, [facility] [address] [id number] [place] [address] Mar, [facility] [address] [id number] [place] [address] Mar, [facility] [address] [id number] [place] [address] 10 Mar, 2012 [facility] [address] [id number] [place] [address] Mar, [facility] [place] [facility] [address] [id number] [place] [address] 480[address] Mar, [facility] [address] [id number] [place] [address] Feb, [facility] [place] [facility] [address] [id number] [place] [address] 47[address] Feb, [facility] [address] [id number] [place] [address] Feb, [facility] [place] [facility] [address] [id number] [place] [address] 1567 Feb, [facility] [address] [id number] [place] [address] 8412 Feb, [facility] [address] [id number] [place] [address] 1620 Feb, [facility] [place] [facility] [address] [id number] [place] [address] Feb, [facility] [address] [id number] [place] [address] Feb, [facility] [place] [facility] [address] [id number] [place] [address] 4784 Jan, [facility] [place] [facility] [address] [id number] [place] [address] 23[address] Jan, [facility] [place] [facility] [address] [id number] [place] [address] 4483 Jan, [facility] [place] [facility] [address] [id number] [place] [address]- 94[address] Jan, [facility] [place] [facility] [address] [id number] [place] [address] Jan, [facility] [place] [facility] [address] [id number] [place] [address]- 5663 Jan, [facility] [place] [facility] [address] [id number] [place] [address]- 4354 Jan, [facility] [place] [facility] [address] [id number] [place] [address] 0951 Jan, [facility] [place] [facility] [address] [id number] [place] [address] 459[address] Jan, [facility] [place] [facility] [address] [id number] [place] [address] 450[address] Jan, [facility] [place] [facility] [address] [id number] [place] [address]- 2815 Jan, [facility] [place] [facility] [address] [id number] [place] [address] 96[address] Jan, [facility] [place] [facility] [address] [id number] [place] [address]- 3536 Jan, [facility] [place] [facility] [address] [id number] [place] [address] 7739 Jan, [facility] [place] [facility] [address] [id number] [place] [address]- 3835 Jan, [facility] [place] [facility] [address] [id number] [place] [address]- 8713 Jan, [facility] [place] [facility] [address] [id number], [place] [address] Dec, [facility] [place] [facility] [address] [id number] [place] [address] 1142 Dec, [facility] [place] [facility] [address] [id number] [place] [address] Dec, [facility] [place] [facility] [address] [id number] [place] [address]272 Dec, [facility] [place] [facility] [address] [id number], [place] [address] Dec, [facility] [place] [facility] [address] [id number] [place] [address] 407[address] Dec, [facility] [place] [facility] [address] [id number] [place] [address] 48[address] Dec, [facility] [place] [facility] [address] [id number] [place] [address] 2471 Dec, [facility] [place] [facility] [address] [id number] [place] [address]304 Dec, [facility] [place] [facility] [address] [id number] [place] [address]- 2988 Dec, [facility] [place] [facility] [address] [id number] [place] [address]- 6775 18 Nov, 2011 [facility] [place] [facility] [address] [id number] [place] [address] 7900 Nov, [facility] [place] [facility] [address] [id number] [place] [address] 24 Oct, 2011 [facility] [place] [facility] [address] [id number] [place] [address]350 Oct, [facility] [place] [facility] [address] [id number] [place] [address] 4260 Oct, [facility] [place] [facility] [address] [id number] [place] [address]- 3503 16 Oct, 2011 [facility] [place] [facility] [address] [id number] [place] [address]- 8334 15 Oct, 2011 [facility] [place] [facility] [address] [id number] [place] [address]- 1494 Oct, [facility] [place] [facility] [address] [id number] [place] [address]- 0611 Oct, [facility] [place] [facility] [address] [id number] [place] [address] 9887 Sep, [facility] [place] [facility] [address] [id number] [place] [address]- 8408 26 Aug, 2011 [facility] [address] [id number] [place] [address] 8177 18 Aug, 2011 [facility] [place] [facility] [address] [id number] [place] [address] 0186 Aug, [facility] [address] [id number] [place] [address] 295[address] Aug, [facility] [place] [facility] [address] [id number] [place] [address] 1540 Aug, [facility] [address] [id number] [place] [address] 9009 July, [facility] [address] [id number] [place] [address] 4644 July, [facility] [address] [id number] [place] [address]- 5166 July, [facility] [address] [id number] [place] [address]- 57[address] Jun, [facility] [place] [facility] [address] [id number] [place] [address]246 Jun, [facility] [address] [id number] [place] [address]- 7476 Jun, [facility] [place] [facility] [address] [id number] [place] [address]- 74[address] Jun, [facility] [address] [id number] [place] [address]- 2146 May, [facility] [place] [facility] [address] [id number] [place] [address]- 8285 30 May, 2011 [facility] [place] [facility] [address] [id number] [place] [address]- 6826 29 May, 2011 [facility] [place] [facility] [address] [id number] [place] [address]- 1182 May, [facility] [place] [facility] [address] [id number] [place] [address]- 8968 23 May, 2011 [facility] [place] [facility] [address] [id number] [place] [address]- 2876 22 May, 2011 [facility] [place] [facility] [address] [id number] [place] [address]- 2149 21 May, 2011 [facility] [place] [facility] [address] [id number] [place] [address]- 8240 19 May, 2011 [facility] [place] [facility] [address] [id number] [place] [address]- 6480 08 May, 2011 [facility] [place] [facility] [address] [id number] [place] [address]- 7356 05 May, 2011 [facility] [place] [facility] [address] [id number] [place] [address]- 6129 02 May, 2011 [facility] [place] [facility] [address] [id number] [place] [address]- 7984 May, [facility] [place] [facility] [address] [id number] [place] [address]- 3711 31 Mar, 2011 [facility] [place] [facility] [address] [id number] [place] [address]- 3922 Mar, [facility] [place] [facility] [address] [id number] [place] [address]- 6043 28 Feb, 2011 [facility] [place] [facility] [address] [id number] [place] [address]- 9170 20 Feb, 2011 [facility] [place] [facility] [address] [id number] [place] [address]- 6266 20 Feb, 2011 [facility] [place] [facility] [address] [id number] [place] [address]- 3196 15 Feb, 2011 [facility] [place] [facility] [address] [id number] [place] [address]- 8030 13 Feb, 2011 [facility] [place] [facility] [address] [id number] [place] [address]- 1579 13 Feb, 2011 [facility] [place] [facility] [address] [id number] [place] [address]- 6741 13 Feb, 2011 [facility] [place] [facility] [address] [id number] [place] [address]- 7920 Jan, [facility] [place] [facility] [address] [id number] [place] [address]- 3163 Jan, [facility] [place] [facility] [address] [id number] [place] [address]- 2984 Jan, [facility] [place] [facility] [address] [id number] [place] [address]- 7995 Jan, [facility] [place] [facility] [address] [id number] [place] [address]- 2786 Jan, [facility] [place] [facility] [address] [id number] [place] [address]- 5967 Jan, [facility] [place] [facility] [address] [id number] [place] [address]- 5478 Dec, [facility] [place] [facility] [address] [id number] [place] [address]- 7945 Dec, [facility] [place] [facility] [address] [id number] [place] [address]- 7658 Dec, [facility] [place] [facility] [address] [id number] [place] [address]- 8035 July, [facility] [place] [facility] [address] [id number] [place] [address]- 1751 July, [facility] [place] [facility] [address] [id number] [place] [address]- 5888 Feb, [facility] [place] [facility] [address] [id number] [place] [address]- 4995 Jan, [facility] [place] [facility] [address] [id number] [place] [address]- 6121 Dec, [facility] [place] [facility] [address] [id number] [place] [address]- 3687 12 Dec, 2009 [facility] [place] [facility] [address] [id number] [place] [address]- 8666 15 Sep, 2009 [facility] [place] [facility] [address] [id number] [place] [address] 2546 Aug, [facility] [place] [facility] [address] [id number] [place] [address] 2546 Jun, [facility] [place] [facility] [address] [id number] [place] [address] 2541 Jun, [facility] [place] [facility] [address] [id number] [place] [address]- 8332 Jan, [facility] [place] [facility] [address] [id number] [place] [address]- 6852 Jan, [facility] [place] [facility] [address] [id number] [place] [address]- 3337 Jan, [facility] [place] [facility] [address] [id number] [place] [address]- 0408 Jan, [facility] [place] [facility] [address] [id number] [place] [address]- 1766 29 Dec, 2008 [facility] [place] [facility] [address] [facility] [id number] [place] [address]- 2566 Dec, [facility] [place] [facility] [address] [id number], [place] [address]- 4984 15 Dec, 2008 [facility] [place] [facility] [address] [id number] [place] [address]- 8853 17 Nov, 2008 [facility] [place] [facility] [address] [id number] [place] [address]- 5254 July, [facility] [place] [facility] [address] [id number], [place] [address] 2542 May, [facility] [place] [facility] [address] [id number], [place] [address] Apr, [facility] [address] [facility] [id number] [place] [address]- 5747 Feb, [facility] [address] [facility] [id number] [place] [address]- [address]226 Dec, IMMUNIZATIONS No Known Immunizations SOCIAL HISTORY Never Assessed REASON FOR VISIT f/u PLAN OF CARE Activity Details Follow Up 2 Weeks Reason: VITAL SIGNS MEDICATIONS Unknown Medications RESULTS No Results PROCEDURES Procedure Date Ordered Result Body Site Psychotherapy, patient &/family, 30 minutes, established patient Nov 10, 2017 INSTRUCTIONS MEDICATIONS ADMINISTERED No Known Medications [...]
--- OUTSIDE RECORDS SUMMARY | 2018-06-14 14:28 | XMS REPORT ---
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 Name Role Phone BEVERLY TAO Unavailable PROBLEMS Type Condition ICD9-CM Code VSL37-CU Code Onset Dates Condition Status SNOMED Code Problem Bipolar 1 disorder F31.9 Active 214045379 Problem Hyperlipidemia, unspecified E78.5 Active 72243385 Problem Type 2 diabetes mellitus with complication E11.8 Active 829734154 Problem Other chronic pain G89.29 Active 18361884 Problem Post laminectomy syndrome M96.1 Active 66428795 Problem Lumbago with sciatica, left side M54.42 Active 207430245 Problem Eye exam normal Z01.00 Active 139909028 Problem New daily persistent headache G44.52 Active 576919001 Problem Acute bilateral low back pain with right-sided sciatica M54.41 Active 492523121 Problem Type 2 diabetes mellitus with hyperglycemia E11.65 Active 37629205 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 767240589 Problem Bipolar disorder, in partial remission, most recent episode manic F31.73 Active 44933950 Problem Extreme poverty Z59.5 Active 10355745 Problem Obesity, unspecified 278.00 Active 087612426 Problem Hyperlipidemia 272.4 Active 98915009 Problem Diabetes E11.9 Active 736742614 Problem Irritable bowel syndrome with diarrhea K58.0 Active 017775242 Problem 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 Active 31810059 Problem Lumbar radiculopathy M54.16 Active 684264284 Problem Non compliance with medical treatment Z91.19 Active 6404739 Problem snf current 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 Z79.891 Active 820009605 ALLERGIES Substance Reaction Event Type Date Status Zithromax Chest pain Drug Allergy Oct, Active Prednisone elevated blood sugars Drug Allergy Oct, Active ENCOUNTERS Encounter Location Date Diagnosis [facility] [address] [address] Dec, [facility] [id number] [place] [address] 99097- 3997 Nov, [facility] [address] [address] Nov, [facility] [id number] [place] [address] 25407- 3387 Nov, Type 2 diabetes mellitus with complication E11.8 [facility] [id number] [place] [address] 98860- 4079 11 Nov, 2017 Bipolar 1 disorder F31.9 ; 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 and Extreme poverty Z59.5 [facility] [address] [place] [address] 01393- 4497 Nov, Type 2 diabetes mellitus with complication E11.8 ; Pain of left upper arm M79.622 ; Pain in right upper arm M79.621 ; Hyperglycemia R73.9 ; Lumbago with sciatica, left side M54.42 and Other chronic pain G89.29 [facility] [address] [place] [id number] [place] [address] 06508- 9099 Oct, Bipolar 1 disorder F31.9 ; 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 and Extreme poverty Z59.5 [facility] [address] [address] Oct, Type 2 diabetes mellitus with hyperglycemia E11.65 ; snf current use of insulin Z79.4 and Other acute gastritis without hemorrhage K29.00 [facility] [address] [place] [address] 55478- 8180 Oct, Bipolar 1 disorder F31.9 ; 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 and Extreme poverty Z59.5 [facility] [id number] [place] [address] 78754- 4173 Sep, Diarrhea, unspecified R19.7 and Vomiting, unspecified R11.10 [facility] [address] [place] [address] [address] 99[address] Aug, Type 2 diabetes mellitus with complication E11.8 [facility] [id number] [place] [address] 08575- 8760 Aug, [facility] [address] [place] [id number] [place] [address] 58403- 3006 Aug, Bipolar 1 disorder F31.9 ; 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 and Extreme poverty Z59.5 [facility] [address] [place] [id number] [place] [address] 98244- 7764 Aug, 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 and Bipolar disorder, in partial remission, most recent episode manic F31.73 [facility] [address] [place] [id number] [place] [address] 79112- 9613 Aug, Bipolar 1 disorder F31.9 [facility] [address] [place] [address] [id number] [place] [address] 95523- 8769 Aug, [facility] [address] [id number] [place] [address] 68077- 0142 Aug, [facility] [address] [place] [address] [id number] [place] [address] 90474- 2051 Aug, Bipolar 1 disorder F31.9 ; 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 and Extreme poverty Z59.5 [facility] [id number] [place] [address] 55827- 4192 July, Type 2 diabetes mellitus with complication E11.8 [facility] [id number] [place] [address] 44911- 3574 July, Bipolar 1 disorder F31.9 ; 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 and Extreme poverty Z59.5 [facility] [id number] [place] [address] 28827- 0648 Jun, Bipolar 1 disorder F31.9 ; 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 and Extreme poverty Z59.5 [facility] [id number] [place] [address] 61591- 2668 Jun, Bipolar 1 disorder F31.9 ; 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 and Extreme poverty Z59.5 [facility] [address] [place] [id number] [place] [address] Jun, Bipolar 1 disorder F31.9 ; 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 and Extreme poverty Z59.5 [facility] [address] [place] [id number] [place] [address] 21358- 0973 May, Urinary tract infection without hematuria, site unspecified N39.0 [facility] [address] [place] [id number] [place] [address] 55905- 4085 May, Bipolar 1 disorder F31.9 ; 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 and Extreme poverty Z59.5 [facility] [address] [place] [id number] [place] [address] 37581- 8227 28 Apr, 2017 Diabetes E11.9 and Breast cancer screening Z12.31 [facility] [address] 20382- 6385 20 Apr, 2017 Bipolar 1 disorder F31.9 and 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 [facility] [address] [place] [address] [address]39 Mar, Bipolar 1 disorder F31.9 ; 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 and Extreme poverty Z59.5 [facility] [address] [place] [id number] [place] [address] 46917- 4072 Mar, New daily persistent headache G44.52 ; Leg pain 729.5 and History of carpal tunnel release Z98.890 [facility] [address] [place] [id number] [place] [address] 70991- 6811 Mar, Hyperlipidemia, unspecified E78.5 [facility] [address] [place] [id number] [place] [id number] Mar, Bipolar 1 disorder F31.9 ; 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 and Extreme poverty Z59.5 [facility] [address] [place] [address] [id number] [place] [address] 88623- 6507 Feb, Bipolar 1 disorder F31.9 ; 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 and Extreme poverty Z59.5 [facility] [address] [place] [address] [id number] [place] [address] 86338- 8595 Feb, Diabetes E11.9 [facility] [address] 25476- 3022 Feb, Viral syndrome B34.9 [facility] [address] 66156- 3081 Jan, Other viral agents as the cause of diseases classified elsewhere B97.89 and Acute upper respiratory infection, unspecified J06.9 [facility] [address] [place] [id number] [place] [address] 85392- 5894 Jan, Bipolar 1 disorder F31.9 and 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 [facility] [address] 93593- 2008 Jan, Bipolar 1 disorder F31.9 ; 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 and Extreme poverty Z59.5 [facility] [address] 29275- 7401 Dec, Diabetes E11.9 [facility] [address] [place] [id number] [place] [address] 63322- 6535 Dec, Diabetes E11.9 and Encounter for immunization Z23 [facility] [address] [place] [id number] [place] [address] 19736- 9316 Dec, Bipolar 1 disorder F31.9 ; 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 and Extreme poverty Z59.5 [facility] [address] 67735- 7792 Dec, Back pain M54.9 [facility] [address] [place] [id number] [place] [address] 80454- 0320 Nov, [facility] [address] 94222- 1672 Nov, Bipolar 1 disorder F31.9 ; 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 and Extreme poverty Z59.5 [facility] [address] [place] [address] [id number] [place] [address] 58059- 5111 Nov, Bipolar 1 disorder F31.9 ; 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 and Extreme poverty Z59.5 [facility] [address] [place] [id number] [place] [address] 43403- 0717 Oct, 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 and Bipolar 1 disorder F31.9 [facility] [address] [place] [address] [id number] [place] [address] 55806- 7729 Oct, Bipolar 1 disorder F31.9 ; 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 and Extreme poverty Z59.5 [facility] [address] [place] [address] [id number] [place] [address] 72558- 3800 Oct, Back pain M54.9 [facility] [address] [address] [id number] [place] [address] 85102- 7531 Oct, 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 and Type 2 diabetes mellitus with complication E11.8 [facility] [address] [place] [address] [id number] [place] [address] 48648- 5252 Sep, Bipolar 1 disorder F31.9 ; 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 and Extreme poverty Z59.5 [facility] [id number] [place] [address] 99666- 7436 Sep, 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 and Bipolar 1 disorder F31.9 [facility] [id number] [place] [address] 03953- 9275 Sep, Bipolar 1 disorder F31.9 ; 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 and Extreme poverty Z59.5 [facility] [address] [place] [address] [id number] [place] [address] 52125- 5591 Aug, Diabetes E11.9 ; Hyperlipidemia, unspecified E78.5 and Lumbar radiculopathy M54.16 [facility] [address] [place] [id number] [place] [address] 95051- 4743 Aug, Bipolar 1 disorder F31.9 ; 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 and Extreme poverty Z59.5 [facility] [address] [address]- 9884 Aug, [facility] [address], [place] [address]- 5548 Aug, [facility] [address] [place] [id number] [place] [address] 40256- 3606 Aug, [facility] [id number] [place] [address] 94282- 9073 July, [facility] [address] [place] [id number] [place] [address] 10080- 9891 July, Acute bilateral low back pain with right-sided sciatica M54.41 [facility] [address] [place] [id number] [place] [address] 35689- 7269 July, Bipolar 1 disorder F31.9 ; 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 and Extreme poverty Z59.5 [facility] [address] [place] [address] 85736- 0236 July, Back pain M54.9 and Diabetes E11.9 [facility] [address] [place] [address] 48816- 4841 Jun, Bipolar 1 disorder F31.9 ; 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 and Extreme poverty Z59.5 [facility] [id number] [place] [address] 94480- 3480 Jun, Bipolar 1 disorder F31.9 ; 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 and Extreme poverty Z59.5 [facility] [id number] [place] [address] 48167- 0605 May, Visit for pelvic exam Z01.419 ; Acute vaginitis N76.0 and Diabetes E11.9 [facility] [address] [place] [address] 46070- 5679 May, Bipolar 1 disorder F31.9 ; 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 and Extreme poverty Z59.5 [facility] [address] [place] [id number] [place] [address] 68823- 1836 May, [facility] [address] [place] [id number] [place] [id number] 6253 May, [facility] [address] [place] [id number] [place] [address] 71635- 7177 May, Bipolar 1 disorder F31.9 ; 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 and Extreme poverty Z59.5 [facility] [address] [place] [id number] [place] [address] May, Hyperlipidemia, unspecified E78.5 [facility] [address] [place] [id number] [place] [address] 86039- 4455 13 Apr, 2016 Breast cancer screening Z12.39 [facility] [address] 93978- 0805 Mar, [facility] [address] [place] [id number] [place] [address] 97560- 0078 Mar, Bipolar disorder, current episode mixed, unspecified F31.60 [facility] [address] [place] [id number] [place] [address] 30811- 9409 Mar, Bipolar 1 disorder F31.9 ; 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 and Extreme poverty Z59.5 [facility] [address] [place] [id number] [place] [address] 99731- 0364 Feb, Acute nasopharyngitis J00 [facility] [address] [place] [id number] [place] [address] 97175- 4602 27 Feb, 2016 Dental examination Z01.20 [facility] [address] [place] [id number] [place] [address] 19697- 8222 21 Feb, 2016 Dental cavities K02.9 and Chronic periodontitis, unspecified K05.30 [facility] [address] 52776- 2912 13 Feb, 2016 Low back pain M54.5 and Extreme poverty Z59.5 [facility] [address] [place] [id number] [place] [address] 9486 08 Feb, 2016 [facility] [address] [place] [id number] [place] [address] 8587 05 Feb, 2016 Routine gynecological examination V72.31 ; Breast cancer screening Z12.39 and Herpes simplex type 1 infection B00.9 [place] [address] [place] [address]- 5904 02 Feb, 2016 Diabetes E11.9 [place] [address]047- 0008 Feb, Encounter for dental examination and cleaning without abnormal findings Z01.20 [place] [id number] [place] [address] 59009- 1920 Jan, Hyperlipidemia, unspecified E78.5 [facility] [address] 53132- 8033 Jan, Bipolar 1 disorder F31.9 ; 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 and Extreme poverty Z59.5 [facility] [address] [place] [id number] [place] [address] 26302- 1824 18 Jan, 2016 Diabetes E11.9 [facility] [address] [place] [id number] [place] [address] 70349- 6667 17 Jan, 2016 Diabetes E11.9 [facility] [address] [place] [id number] [place] [address] 80897- 2257 14 Dec, 2015 Bipolar 1 disorder F31.9 ; 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 and Extreme poverty Z59.[address] 98431- 7719 13 Dec, 2015 Bipolar disorder, current episode mixed, unspecified F31.60 and 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 [place] [id number] [place] [address] 58157- 0550 16 Nov, 2015 Bipolar 1 disorder F31.9 ; 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 ; Extreme poverty Z59.5 and Non compliance with medical treatment Z91.19 [place] [address] [place] [id number] [place] [address] 60554- 6852 Oct, [facility] [address] [address] [id number] [place] [address] 50841- 8683 Oct, Dental caries K02.9 [facility] [place] [address] [place] [id number] [place] [address] 59579- 3174 Oct, Low back pain M54.5 and Other chronic pain G89.29 [facility] [address] [place] [id number] [place] [address] 66797- 6376 Oct, Bipolar 1 disorder F31.9 ; 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 ; Extreme poverty Z59.5 and Non compliance with medical treatment Z91.19 [facility] [place] [address] [place] [id number] [place] [address] 84761- 4870 Oct, [facility] [address] [place] [id number] [place] [address] 75506- 3820 Oct, [facility] [address] [place] [id number] [place] [address] 67920- 8094 Oct, Dental examination Z01.20 [facility] [address] [place] [id number] [place] [address] 86462- 3831 Oct, Bipolar 1 disorder F31.9 ; 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 ; Extreme poverty Z59.5 and Non compliance with medical treatment Z91.19 [facility] [place] [address] [place] [address] 99550- 3499 Oct, [facility] [address] 21772- 2896 Sep, Type 2 diabetes mellitus with complication E11.8 [facility] [address] [place] [id number] [place] [address] 68347- 7399 Sep, Bipolar disorder, current episode mixed, unspecified F31.60 [facility] [address], [place] [address]- 4676 Sep, Bipolar disorder, current episode mixed, unspecified F31.60 [facility] [address] [place] [address] 60534- 1005 Sep, Bipolar disorder, in partial remission, most recent episode manic F31.73 ; 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 ; Extreme poverty Z59.5 and Non compliance with medical treatment Z91.19 [facility] [address] [place] [address] 54215- 7781 Aug, Bipolar disorder, in partial remission, most recent episode manic F31.73 ; 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 ; Extreme poverty Z59.5 and Non compliance with medical treatment Z91.19 [facility] [address] [place] [address] 11165- 5521 Aug, Bipolar disorder, in partial remission, most recent episode manic F31.73 ; 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 ; Extreme poverty Z59.5 and Non compliance with medical treatment Z91.19 [facility] [address] [place] [address] 72756- 0749 Aug, [facility] [address] [place] [address] 59898- 5122 July, Bipolar disorder, in partial remission, most recent episode manic F31.73 ; 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 ; Extreme poverty Z59.5 and Non compliance with medical treatment Z91.19 [facility] [address], [place] [address]- 5486 July, Bipolar disorder, current episode mixed, unspecified F31.60 [facility] [address] [place] [address] 15147- 7513 July, Bipolar disorder, in partial remission, most recent episode manic F31.73 ; 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 ; Extreme poverty Z59.5 and Non compliance with medical treatment Z91.19 [facility] [address] [place] [address] 10439- 8800 July, 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 and Chronic pain G89.29 [facility] [address] [place] [id number] [place] [address] 80882- 7242 Jun, snf current 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 Z79.891 and Bipolar 1 disorder F31.9 [facility] [address] [place] [address] 47715- 6050 Jun, [facility] [address] [place] [address] 60670- 9667 Jun, [facility] [address] [place] [address] 77140- 4018 Jun, [facility] [address] [place] [address] 84513- 5154 Jun, Bipolar disorder, in partial remission, most recent episode manic F31.73 ; 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 and Non compliance with medical treatment Z91.19 [facility] [place] [address] [place] [address] 39952- 9346 May, Bipolar disorder, in partial remission, most recent episode manic F31.73 ; 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 and Non compliance with medical treatment Z91.19 [facility] [address], [place] [address]- 3639 May, Bipolar disorder, in partial remission, most recent episode manic F31.73 [facility] [address] [place] [address] 25534- 6636 May, Diabetes E11.9 and Chronic pain G89.29 [place] [place] [address] [place] [address] 34369- 8119 May, [facility] [address] [place] [address] 01982- 6137 May, Bipolar disorder, in partial remission, most recent episode manic F31.73 ; Non compliance with medical treatment Z91.19 and 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 [facility] [place] [address] [address]- 8205 08 May, 2015 Type 2 diabetes mellitus with complication E11.8 and Back pain M54.9 [facility] [place] [address] [place] [id number] [place] [address] 19308- 2144 May, Bipolar disorder, in partial remission, most recent episode manic F31.73 and 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 [place] [place] [address] [place] [id number] [place] [address] 38049- 5628 Apr, [facility] [address] [place] [id number] [place] [address] 74685- 8839 Apr, [facility] [address] [place] [id number] [place] [address] 25605- 3173 Apr, [facility] [place] [address] [place] [id number] [place] [address] 16102- 5871 Apr, Diabetes E11.9 ; Irritable bowel syndrome with diarrhea K58.0 and Lumbar radiculopathy M54.16 [place] [place] [address] [place] [id number] [place] [address] 86035- 0481 Apr, Breast screening Z12.39 [facility] [place] [address] [place] [id number] [place] [address] 24914- 8877 Apr, Bipolar disorder, in partial remission, most recent episode manic F31.73 ; Non compliance with medical treatment Z91.19 and 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 [place] [address] [place] [address] 13587- 3902 Mar, Edema, unspecified type R60.9 and Type 2 diabetes mellitus with complication E11.8 [place] [place] [address] [place] [address] 53317- 7750 Mar, Bipolar disorder, in partial remission, most recent episode manic F31.73 ; Non compliance with medical treatment Z91.19 ; 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 and Extreme poverty Z59.5 [facility] [address] [address]- 4417 14 Mar, 2015 Bipolar disorder, current episode mixed, unspecified F31.60 ; 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 ; Extreme poverty Z59.5 and Generalized anxiety disorder F41.1 [facility] [address] [address]- 1639 12 Mar, 2015 Bipolar disorder, in partial remission, most recent episode manic F31.73 ; 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 and Extreme poverty Z59.5 [place] [place] [address] [place] [address] 90753- 7846 Feb, Bipolar disorder, in partial remission, most recent episode manic F31.73 ; 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 and Extreme poverty Z59.5 [facility] [address] [place] [address] 28641- 4256 Feb, Bipolar disorder, in partial remission, most recent episode manic F31.73 ; 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 and Extreme poverty Z59.5 [facility] [place] [address] [place] [address] 28460- 9786 Feb, [facility] [address] [place] [id number] [place] [address] 01508- 8852 Jan, Type 2 diabetes mellitus with complication E11.8 and Petechiae R23.3 [facility] [address] [place] [address] 76344- 4620 Jan, Type 2 diabetes mellitus with complication E11.8 ; Edema, unspecified R60.9 ; Petechiae R23.3 and Diabetes E11.9 [facility] [address] [place] [address] 68333- 5191 Jan, Bipolar disorder, in partial remission, most recent episode manic F31.73 ; 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 and Extreme poverty Z59.5 [facility] [address] [address]- 1102 Jan, Bipolar disorder, in partial remission, most recent episode manic F31.73 ; 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 and Extreme poverty Z59.5 [facility] [address] [place] [id number] [place] [address] 05876- 2098 Dec, Bipolar disorder, in partial remission, most recent episode manic F31.73 [facility] [address] [place] [id number] [place] [address] 69279- 9127 Dec, Edema, due to unspecified malnutrition type, unspecified edema R60.9 and Essential hypertension I10 [place] [address] [place] [id number] [place] [address] 77674- 9061 Dec, Bipolar disorder, in partial remission, most recent episode manic F31.73 [facility] [place] [address] [place] [id number] [place] [address] 90483- 6200 Nov, Bipolar I disorder, most recent episode (or current) mixed, unspecified 296.60 [facility] [address] [address] [address] Nov, Stress incontinence, female 625.6 ; Back pain 724.5 and Leg pain 729.5 [place] [id number] [place] [address]- 7849 Nov, Generalized anxiety disorder 300.02 and Bipolar II disorder 296.89 [place] [id number] [place] [address] 77404- 8793 Nov, Bipolar I disorder, most recent episode (or current) mixed, unspecified 296.60 [facility] [id number] [place] [address]309- 7412 Oct, [place] [address] [address]- [address] Oct, [facility] [id number] [place] [address] 84879- 3548 Oct, [facility] [id number] [place] [address] 91938- 6010 Oct, Bipolar I disorder, most recent episode (or current) mixed, unspecified 296.60 [facility] [id number] [address] 38[address] Sep, Diabetes 250.00 [facility] [id number] [address] 33[address] Sep, Bipolar I disorder, most recent episode (or current) mixed, unspecified 296.60 [facility] [id number] [address] 7[address] Sep, [facility] [id number] [address]- 1013 Sep, [facility] [id number] [place] [address] 66582- 1463 Sep, Bipolar I disorder, most recent episode (or current) mixed, unspecified 296.60 [facility] [id number] [address] 8957 Sep, Bipolar I disorder, most recent episode (or current) mixed, unspecified 296.60 [facility] [id number] [address]- 5089 Sep, [facility] [id number] [address]- 0006 Sep, Anxiety 300.00 ; Diabetes 250.00 and Hyperlipidemia 272.4 [facility] [id number] [address]- 2715 Aug, [facility] [address] [place] [address]- 2102 Aug, [facility] [address] [address]- 7660 Aug, [facility] [address] [address]- 6429 Aug, Bipolar I disorder, most recent episode (or current) mixed, unspecified 296.60 [facility] [id number] [address]- 5152 Aug, Generalized anxiety disorder 300.02 and Bipolar II disorder 296.89 [facility] [id number] [place] [address] 51636- 8446 July, Bipolar I disorder, most recent episode (or current) mixed, unspecified 296.60 [facility] [id number] [place] [address] 43303- 1626 July, Cough 786.2 [facility] [id number] [place] [address] 57632- 0556 July, Bipolar I disorder, most recent episode (or current) mixed, unspecified 296.60 [facility] [id number] [place] [address] 56751- 7541 Jun, Diabetes 250.00 [facility] [id number] [address]- 7510 Jun, [facility] [id number] [address]- 4098 Jun, [facility] [address] [address]- 3713 May, [facility] [id number] [address] 1632 May, [facility] [id number] [address]- 0036 May, [facility] [id number] [address]- 6137 May, [facility] [id number] [address]- 1617 May, [facility] [id number], [place] [address]- 6938 May, [facility] [id number] [address]- 1736 Apr, [facility] [address] [facility] [id number] [place] [address]- 9530 20 Apr, 2014 [facility] [place] [facility] [address] [id number] [place] [address]- 5736 Apr, 2014 [facility] [place] [facility] [address] [id number] [place] [address]- 2546 Apr, 2014 [facility] [place] [facility] [address] [id number] [place] [address]- 0125 Apr, 2014 [facility] [place] [facility] [address] [id number] [place] [address]- 2036 Apr, 2014 [facility] [place] [facility] [address] [id number] [place] [address]- 7224 Apr, [facility] [place] [facility] [address] [id number] [place] [address]- 7955 Apr, [facility] [place] [facility] [address] [id number] [place] [address]- 6369 Mar, [facility] [place] [facility] [address] [id number] [place] [address]- 0174 Mar, [facility] [place] [facility] [address] [id number] [place] [address]- 6574 Mar, [facility] [place] [facility] [address] [id number] [place] [address]- 0823 Mar, [facility] [place] [facility] [address] [id number] [place] [address]- 6502 Mar, [facility] [place] [facility] [address] [id number] [place] [address]- 0477 Mar, [facility] [place] [facility] [address] [id number] [place] [address]- 9961 Mar, [facility] [place] [facility] [address] [id number] [place] [address]- 1478 Mar, [facility] [place] [facility] [address] [id number] [place] [address]- 1442 Feb, [facility] [place] [facility] [address] [id number] [place] [address]- 4559 Feb, [facility] [place] [facility] [address] [id number] [place] [address]- 3819 Feb, [facility] [place] [facility] [address] [id number] [place] [address]- 9331 Feb, [facility] [place] [facility] [address] [id number] [place] [address]- 6231 Feb, [facility] [place] [facility] [address] [id number] [place] [address]- 5526 Feb, [facility] [place] [facility] [address] [id number] [place] [address]- 2540 Feb, [facility] [place] [facility] [address] [id number] [place] [address]- 1187 Feb, [facility] [place] [facility] [address] [id number] [place] [address]- 4051 Feb, [facility] [place] [facility] [address] [id number] [place] [address]- 8834 Feb, [facility] [place] [facility] [address] [id number] [place] [address]- 8662 Jan, [facility] [place] [facility] [address] [id number] [place] [address]- 3434 Jan, [facility] [place] [facility] [address] [id number] [place] [address]- 1297 Jan, [facility] [place] [facility] [address] [id number] [place] [address]- 2059 Jan, [facility] [place] [facility] [address] [id number] [place] [address]- 4627 Jan, [facility] [place] [facility] [address] [id number] [place] [address]- 2156 Jan, [facility] [place] [facility] [address] [id number] [place] [address]- 1933 Jan, [facility] [place] [facility] [address] [id number] [place] [address]- 9656 Jan, [facility] [place] [facility] [address] [id number] [place] [address]- 8048 Jan, [facility] [place] [facility] [address] [id number] [place] [address]- 8648 Jan, [facility] [place] [facility] [address] [id number] [place] [address]- 4301 Jan, [facility] [place] [facility] [address] [id number] [place] [address]- 4097 Jan, [facility] [place] [facility] [address] [id number] [place] [address]- 8293 Jan, [facility] [place] [facility] [address] [id number] [place] [address]- 5299 Jan, [facility] [place] [facility] [address] [id number] [place] [address]- 7185 Jan, [facility] [place] [facility] [address] [id number] [place] [address]- 9724 Dec, [facility] [place] [facility] [address] [id number] [place] [address]- 6131 Dec, [facility] [place] [facility] [address] [id number] [place] [address]- 6725 Dec, [facility] [place] [facility] [address] [id number] [place] [address]- 8041 Dec, [facility] [place] [facility] [address] [id number] [place] [address]- 8986 Dec, [facility] [place] [facility] [address] [id number] [place] [address]- 3023 Dec, [facility] [place] [facility] [address] [id number] [id number] 5967 Dec, [facility] [place] [facility] [address] [id number] [place] [address]- 6512 07 Dec, 2013 [facility] [place] [facility] [address] [id number] [place] [address]- 8656 25 Sep, 2013 [facility] [place] [facility] [address] [id number] [place] [address]- 7024 25 Sep, 2013 [facility] [place] [facility] [address] [id number] [place] [address]- 5989 10 Sep, 2013 [facility] [place] [facility] [address] [id number] [place] [address]- 8024 10 Sep, 2013 [facility] [place] [facility] [address] [id number] [place] [address]- 6955 08 Sep, 2013 [facility] [place] [facility] [address] [id number] [place] [address]- 1463 08 Sep, 2013 [facility] [place] [facility] [address] [id number] [place] [address]- 3579 08 Sep, 2013 [facility] [place] [facility] [address] [id number] [place] [address]- 6149 08 Sep, 2013 [facility] [place] [facility] [address] [id number] [place] [address]- 6759 08 Sep, 2013 [facility] [place] [facility] [address] [id number] [place] [address]- 5960 08 Sep, 2013 [facility] [place] [facility] [address] [id number] [address]- 1100 04 Sep, 2013 [facility] [place] [facility] [address] [id number] [place] [address] 2541 04 Sep, 2013 [facility] [place] [facility] [address] [id number] [place] [address]- 5692 03 Sep, 2013 [facility] [place] [facility] [address] [id number] [place] [address]- 3049 02 Sep, 2013 [facility] [place] [facility] [address] [id number] [place] [address]- 3176 Nov, [facility] [place] [facility] [address] [id number] [place] [address]- 5104 Oct, [facility] [place] [facility] [address] [id number] [place] [address]- 0280 Oct, [facility] [place] [facility] [address] [id number] [place] [address]- 9421 Oct, [facility] [place] [facility] [address] [id number] [place] [address]- 6645 Oct, [facility] [place] [facility] [address] [id number] [place] [address]- 1066 Oct, [facility] [place] [facility] [address] [id number] [place] [address]- 7897 Oct, [facility] [place] [facility] [address] [id number] [place] [address]- 2715 Oct, [facility] [place] [facility] [address] [id number] [place] [address]- 9443 Oct, [facility] [place] [facility] [address] [id number] [place] [address]- 0342 Oct, [facility] [place] [facility] [address] [id number] [place] [address]- 3464 Oct, [facility] [place] [facility] [address] [id number] [place] [address]- 1233 Oct, [facility] [place] [facility] [address] [id number] [place] [address]- 9018 Oct, [facility] [place] [facility] [address] [id number] [place] [address]- 1447 Oct, [facility] [place] [facility] [address] [id number] [place] [address]- 7709 Oct, [facility] [place] [facility] [address] [id number] [place] [address]- 5948 Sep, [facility] [place] [facility] [address] [id number] [place] [address]- 1765 Sep, 2013 [facility] [place] [facility] [address] [id number] [place] [address]- 9628 Sep, 2013 [facility] [place] [facility] [address] [id number] [place] [address]- 5802 Sep, 2013 [facility] [place] [facility] [address] [id number] [place] [address]- 1444 Sep, 2013 [facility] [place] [facility] [address] [id number] [place] [address]- 5250 Sep, 2013 [facility] [place] [facility] [address] [id number] [place] [address]- 3581 Sep, [facility] [place] [facility] [address] [id number] [place] [address]- 4427 Sep, [facility] [place] [facility] [address] [id number] [place] [address]- 7269 Aug, [facility] [place] [facility] [address] [id number] [place] [address]- 2946 Aug, [facility] [place] [facility] [address] [id number] [place] [address]- 2798 Aug, [facility] [place] [facility] [address] [id number] [place] [address]- 7067 Aug, [facility] [place] [facility] [address] [id number] [place] [address]- 9572 Aug, [facility] [place] [facility] [address] [id number] [place] [address]- 2895 Aug, [facility] [place] [facility] [address] [id number] [place] [address]- 0926 Aug, [facility] [place] [facility] [address] [id number] [place] [address]- 0336 Aug, [facility] [place] [facility] [address] [id number] [place] [address]- 4428 July, [facility] [address] [id number] [place] [address]- 1854 July, [facility] [place] [facility] [address] [id number] [place] [address]- 7071 July, [facility] [place] [facility] [address] [id number] [place] [address]- 8450 July, [facility] [place] [facility] [address] [id number] [place] [address]- 8832 July, [facility] [place] [facility] [address] [id number] [place] [address]- 6121 July, [facility] [place] [facility] [address] [id number] [place] [address]- 3201 July, [facility] [place] [facility] [address] [id number] [place] [address]- 0811 July, [facility] [place] [facility] [address] [id number] [place] [address]- 6965 Jun, [facility] [place] [facility] [address] [id number] [place] [address]- 1319 Jun, [facility] [place] [facility] [address] [id number] [place] [address]- 9213 Jun, [facility] [place] [facility] [address] [id number] [place] [address]- 5375 Jun, [facility] [place] [facility] [address] [id number], [place] [address]- 3215 Jun, [facility] [place] [facility] [address] [id number] [place] [address]- 7193 Jun, [facility] [place] [facility] [address] [id number] [place] [address]- 5674 Jun, [facility] [place] [facility] [address] [id number] [place] [address]- 1951 Jun, [facility] [place] [facility] [address] [id number] [place] [address]- 6669 Jun, [facility] [place] [facility] [address] [id number] [place] [address]- 7758 Jun, [facility] [place] [facility] [address] [id number] [place] [address]- 2086 Jun, [facility] [place] [facility] [address] [id number] [place]255 Jun, [facility] [place] [facility] [address] [id number] [place] [address]- 4053 May, [facility] [place] [facility] [address] [id number] [place] [address]- 8828 May, [facility] [place] [facility] [address] [id number] [place] [address]- 0643 May, [facility] [place] [facility] [address] [id number] [place] [address]- 9844 May, [facility] [place] [facility] [address] [id number] [place] [address]- 0411 May, [facility] [place] [facility] [address] [id number] [place] [address]- 3742 May, [facility] [place] [facility] [address] [id number] [place] [address]- 3151 May, [facility] [place] [facility] [address] [id number] [place] [address]- 2224 May, [facility] [place] [facility] [address] [id number] [place] [address]- 0872 May, [facility] [place] [facility] [address] [id number] [place] [address]- 7049 May, [facility] [place] [facility] [address] [id number] [place] [address]- 1121 May, [facility] [place] [facility] [address] [id number] [place] [address]- 4135 May, [facility] [place] [facility] [address] [id number] [place] [address]- 5212 May, [facility] [place] [facility] [address] [id number] [place] [address]- 0093 May, [facility] [place] [facility] [address] [id number] [place] [address]- 6786 Apr, [facility] [place] [facility] [address] [id number] [place] [address]- 7790 Apr, [facility] [place] [facility] [address] [id number] [place] [address]- 9330 Apr, [facility] [place] [facility] [address] [id number] [place] [address]- 7799 Apr, [facility] [place] [facility] [address] [id number] [place] [address]- 8796 Apr, [facility] [place] [facility] [address] [id number] [place] [address]- 8238 Apr, [facility] [place] [facility] [address] [id number] [place] [address]- 7787 Mar, [facility] [place] [facility] [address] [id number] [place] [address]- 8569 Mar, [facility] [place] [facility] [address] [id number] [place] [address]- 1577 Mar, [facility] [place] [facility] [address] [id number] [place] [address]- 1268 Mar, [facility] [place] [facility] [address] [id number] [place] [address]- 4053 Mar, [facility] [place] [facility] [address] [id number] [place] [address]- 3291 Mar, [facility] [place] [facility] [address] [id number] [place] [address]- 8474 Mar, [facility] [place] [facility] [address] [id number] [place] [address]- 2065 Mar, [facility] [address] [id number] [place] [address]- 8480 Mar, [facility] [place] [facility] [address] [id number] [place] [address]- 7276 Mar, [facility] [address] [id number] [place] [address]- 6650 Mar, [facility] [place] [facility] [address] [id number] [place] [address]- 6717 Mar, [facility] [place] [facility] [address] [id number] [place] [address]- 7279 Mar, [facility] [place] [facility] [address] [id number] [place] [address]- 1576 Mar, [facility] [address] [id number] [place] [address]- 8521 Feb, [facility] [place] [facility] [address] [id number] [place] [address]- 3411 Feb, [facility] [place] [facility] [address] [id number] [place] [address]- 7575 Feb, [facility] [place] [facility] [address] [id number] [place] [address]- 1015 Feb, [facility] [place] [facility] [address] [id number] [place] [address]- 2035 30 Feb, 2013 [facility] [place] [facility] [address] [id number] [place] [address]- 2548 30 Feb, 2013 [facility] [place] [facility] [address] [id number] [place] [address]- 6014 Feb, [facility] [place] [facility] [address] [id number] [place] [address]- 7326 Feb, [facility] [place] [facility] [address] [id number] [place] [address]- 4451 Feb, [facility] [place] [facility] [address] [id number] [place] [address] Feb, 2012 [facility] [place] [facility] [address] [id number] [place] [address] Feb, 2012 [facility] [place] [facility] [address] [id number] [place] [address] Feb, 2012 [facility] [place] [facility] [address] [id number] [place] [address] Feb, [facility] [place] [facility] [address] [id number] [place] [address] Feb, 2012 [facility] [place] [facility] [address] [id number] [place] [address] Feb, [facility] [place] [facility] [address] [id number] [place] [address] Feb, [facility] [place] [facility] [address] [id number] [place] [address] 24 Dec, 2012 [facility] [place] [facility] [address] [id number] [place] [address] 8067 24 Dec, 2012 [facility] [place] [facility] [address] [id number] [place] [address]104 16 Dec, 2012 [facility] [place] [facility] [address] [id number] [place] [address]695 16 Dec, 2012 [facility] [place] [facility] [address] [id number], [place] [address] 16 Dec, 2012 [facility] [place] [facility] [address] [id number] [place] [address] 47[address] 16 Dec, 2012 [facility] [place] [facility] [address] [id number] [place] [address] 8339 14 Dec, 2012 [facility] [place] [facility] [address] [id number] [place] [address] 1089 14 Dec, 2012 [facility] [place] [facility] [address] [id number], [place] [address] 10 Dec, 2012 [facility] [place] [facility] [address] [id number] [place] [address] 10 Dec, 2012 [facility] [place] [facility] [address] [id number] [place] [address] 0192 10 Dec, 2012 [facility] [place] [facility] [address] [id number] [place] [address] 7246 10 Dec, 2012 [facility] [place] [facility] [address] [id number] [place] [address] 1771 Dec, [facility] [place] [facility] [address] [id number] [place] [address] 6568 25 Nov, 2012 [facility] [place] [facility] [address] [id number] [place] [address] 1591 20 Nov, 2012 [facility] [place] [facility] [address] [id number] [place] [address] 2885 18 Nov, 2012 [facility] [place] [facility] [address] [id number] [place] [address] 46[address] 16 Nov, 2012 [facility] [place] [facility] [address] [id number] [place] [address]26 12 Nov, 2012 [facility] [place] [facility] [address] [id number] [place] [address] 0083 11 Nov, 2012 [facility] [place] [facility] [address] [id number] [place] [address]- 2015 05 Nov, 2012 [facility] [place] [facility] [address] [id number], [place] [address] 15 Oct, 2012 [facility] [place] [facility] [address] [id number] [place] [address] Oct, [facility] [place] [facility] [address] [id number] [place] [address] Sep, [facility] [place] [facility] [address] [id number] [place] [address] 8411 Sep, [facility] [place] [facility] [address] [id number] [place] [address] 18 Sep, 2012 [facility] [address] [id number] [place] [address] 9864 17 Sep, 2012 [facility] [address] [id number] [place] [address] 1809 15 Sep, 2012 [facility] [address] [id number] [place] [address] 2327 09 Sep, 2012 [facility] [address] [id number] [place] [address] 4946 08 Sep, 2012 [facility] [address] [id number] [place] [address] 12[address] Aug, [facility] [address] [id number] [place] [address] 6[address] Aug, [facility] [address] [id number] [place] [address] 6124 16 Aug, 2012 [facility] [address] [id number] [place] [address] 1018 Aug, [facility] [address] [id number] [place] [address] Aug, [facility] [address] [id number] [place] [address] Aug, [facility] [address] [id number] [place] [address] 0182 Aug, [facility] [address] [id number] [place] [address] 7[address] Aug, [facility] [place] [facility] [address] [id number] [place] [address] 3[address] July, [facility] [place] [facility] [address] [id number] [place] [address] 3428 July, [facility] [address] [id number] [place] [address] July, [facility] [address] [id number] [place] [id number] July, [facility] [address] [id number] [place] [address] 67[address] July, [facility] [address] [id number] [place] [address] 3[address] Jun, [facility] [address] [id number] [place] [address] 7986 May, [facility] [address] [id number] [place] [address] 2515 May, [facility] [address] [id number] [place] [address] 6186 May, [facility] [address] [id number] [place] [address] 0266 Apr, [facility] [address] [id number] [place] [address] 2006 Apr, [facility] [address] [id number] [place] [address] 6536 Apr, [facility] [address] [id number], [place] [address] Mar, [facility] [address] [id number] [place] [address] 1816 Mar, [facility] [address] [id number], [place] [address] 44[address] Mar, [facility] [address] [id number] [place] [address] 6856 Mar, [facility] [address] [id number] [place] [address]- 8036 Mar, [facility] [address] [id number] [place] [address] 8756 Mar, [facility] [address] [id number], [place] [address]- 5[address] Mar, [facility] [place] [facility] [address] [id number] [place] [address]- 6461 Feb, [facility] [place] [facility] [address] [id number] [place] [address] Feb, [facility] [place] [facility] [address] [facility] [id number] [place] [address] Feb, [facility] [place] [facility] [address] [id number] [place] [address] Feb, [facility] [place] [facility] [address] [id number] [place] [address] Feb, [facility] [place] [facility] [address] [id number] [place] [address] Feb, [facility] [id number] [place] [address] Feb, [facility] [place] [facility] [address] [id number] [place] [address] 12[address] Feb, [facility] [place] [facility] [address] [id number] [place] [address] Jan, [facility] [place] [facility] [address] [id number] [place] [address] Jan, [facility] [place] [facility] [address] [id number] [place] [address] 8[address] Jan, [facility] [place] [facility] [address] [id number], [place] [address] Jan, [facility] [place] [facility] [address] [id number] [place] [address] Jan, [facility] [place] [facility] [address] [facility] [id number] [place] [address] 9127 Jan, [facility] [place] [facility] [address] [id number] [place] [address] 6142 Jan, [facility] [place] [facility] [address] [id number] [place] [address] 1567 Jan, [facility] [place] [facility] [address] [id number] [place] [address] Jan, [facility] [place] [facility] [address] [id number] [place] [address] 7887 Jan, [facility] [place] [facility] [address] [id number] [place] [address] 407[address] Jan, [facility] [place] [facility] [address] [id number] [place] [address]- 5575 Jan, [facility] [place] [facility] [address] [id number] [place] [address] 1364 Jan, [facility] [place] [facility] [address] [id number] [place] [address] 1039 Jan, [facility] [place] [facility] [address] [id number] [place] [address] 7905 Jan, [facility] [place] [facility] [address] [id number] [place] [address]- 7500 Jan, [facility] [place] [facility] [address] [id number] [place] [address] 3325 Dec, [facility] [place] [facility] [address] [id number] [place] [address] 2855 Dec, [facility] [place] [facility] [address] [id number] [place] [address] 6839 Dec, [facility] [place] [facility] [address] [id number] [place] [address] 7664 Dec, [facility] [place] [facility] [address] [id number] [place] [address] Dec, [facility] [place] [facility] [address] [id number] [place] [address] Dec, [facility] [place] [facility] [address] [id number] [place] [address] 0182 Dec, [facility] [place] [facility] [address] [id number] [place] [address] 5207 Dec, [facility] [place] [facility] [address] [id number] [place] [address] 0916 08 Dec, 2011 [facility] [place] [facility] [address] [id number] [place] [address]- 4073 Dec, [facility] [place] [facility] [address] [id number] [place] [address] 9[address] 18 Nov, 2011 [facility] [place] [facility] [address] [id number] [place] [address]26 Nov, [facility] [place] [facility] [address] [id number] [place] [address] 1643 24 Oct, 2011 [facility] [place] [facility] [address] [id number] [place] [address] 6[address] Oct, [facility] [place] [facility] [address] [id number] [place] [address] 3699 17 Oct, 2011 [facility] [place] [facility] [address] [id number] [place] [address] 9446 16 Oct, 2011 [facility] [place] [facility] [address] [id number] [place] [address] 1453 Oct, [facility] [place] [facility] [address] [id number], [place] [address] Oct, [facility] [place] [facility] [address] [id number], [place] [address] Oct, [facility] [place] [facility] [address] [id number] [place] [address] 9[address] Sep, [facility] [place] [facility] [address] [id number] [place] [address] 3752 Aug, [facility] [place] [facility] [address] [id number] [place] [address]- 2651 Aug, [facility] [place] [facility] [address] [id number] [place] [address] 1093 Aug, [facility] [place] [facility] [address] [id number] [place] [address]- 4204 Aug, [facility] [place] [facility] [address] [id number] [place] [address]- 0146 Aug, [facility] [place] [facility] [address] [id number] [place] [address] 6673 July, [facility] [place] [facility] [address] [id number] [place] [address]- 3552 July, [facility] [place] [facility] [address] [id number] [place] [address]- 2355 July, [facility] [place] [facility] [address] [id number] [place] [address]- 4979 Jun, [facility] [place] [facility] [address] [id number] [place] [address] 1986 Jun, [facility] [place] [facility] [address] [id number] [place] [address]- 0426 Jun, [facility] [place] [facility] [address] [id number] [place] [address]- 3736 Jun, [facility] [place] [facility] [address] [id number] [place] [address] 9617 May, [facility] [place] [facility] [address] [id number] [place] [address] 7834 30 May, 2011 [facility] [place] [facility] [address] [id number] [place] [address] 7955 29 May, 2011 [facility] [place] [facility] [address] [id number] [place] [address] 9038 May, [facility] [place] [facility] [address] [id number] [id number] [address] May, [facility] [place] [facility] [address] [id number] [place] [address]- 9128 May, [facility] [place] [facility] [address] [id number] [place] [address]- 2954 May, [facility] [address] [id number] [place] [address]- 9036 May, [facility] [address] [id number] [place] [address]- 4696 08 May, 2011 [facility] [address] [id number] [place] [address]- 9076 05 May, 2011 [facility] [address] [id number] [place] [address]- 9927 May, [facility] [address] [id number] [place] [address]- 3459 May, [facility] [address] [id number] [place] [address]- 7385 Mar, [facility] [address] [id number] [place] [address]- 0634 Mar, [facility] [address] [id number] [place] [address]- 4467 Feb, [facility] [address] [id number] [place] [address]- 1547 Feb[facility] [address] [id number] [place] [address]- 9455 20 Feb, 2011 [facility] [address] [id number] [place] [address]- 5141 15 Feb, 2011 [facility] [place] [facility] [address] [id number] [place] [address]- 0649 13 Feb, 2011 [facility] [place] [facility] [address] [id number] [place] [address]- 6754 Feb, [facility] [place] [facility] [address] [id number] [place] [address]- 2274 13 Feb, 2011 [facility] [address] [id number] [place] [address]- 8438 Jan, [facility] [place] [facility] [address] [id number] [place] [address]- 1877 Jan, [facility] [place] [facility] [address] [id number] [place] [address]- 7308 Jan, [facility] [place] [facility] [address] [id number] [place] [address]- 1892 Jan, [facility] [place] [facility] [address] [id number] [place] [address]- 1342 Jan, [facility] [place] [facility] [address] [id number] [place] [address]- 1463 Jan, [facility] [place] [facility] [address] [id number] [place] [address]- 9437 Dec, [facility] [place] [facility] [address] [id number] [place] [address]- 1244 Dec, [facility] [place] [facility] [address] [id number] [place] [address]- 8424 Dec, [facility] [place] [facility] [address] [id number] [place] [address]- 1340 July, [facility] [place] [facility] [address] [id number] [place] [address]- 3592 July, [facility] [place] [facility] [address] [id number] [place] [address]- 1490 Feb, [facility] [place] [facility] [address] [id number] [place] [address]- 9877 Jan, [facility] [place] [facility] [address] [id number] [place] [address]- 6516 Dec, [facility] [place] [facility] [address] [id number] [place] [address]- 4431 Dec, [facility] [place] [facility] [address] [id number] [place] [address]- 0679 15 Sep, 2009 [facility] [place] [facility] [address] [id number] [place] [address]- 9847 Aug, [facility] [address] [id number] [place] [address]- 4012 Jun, [facility] [place] [facility] [address] [id number] [place] [address]- 5945 Jun, [facility] [address] [facility] [id number] [place] [address]- 2844 Jan, [facility] [address] [id number] [place] [address]- 0580 Jan, [facility] [address] [facility] [id number] [place] [address], [place] [address]- 2365 Jan, [facility] [address] [facility] [id number] [place] [address]- 4686 Jan, [facility] [address] [facility] [id number] [place] [address]- 5034 Dec, [facility] [address] [facility] [id number] [place] [address]- 7653 Dec, [facility] [address] [id number] [place] [address]- 1388 15 Dec, 2008 [facility] [address] [facility] [id number], [place] [address] 6[address] 17 Nov, 2008 [facility] [address] [facility] [id number] [place] [address]- 3015 July, [facility] [address] [facility] [id number], [place] [address] 8275 May, [facility] [place] [facility] [address] [facility] [id number] [place] [address]- 7034 Apr, [facility] [address] [facility] [id number], [place] [address]- 8859 29 Feb, 2008 [facility] [address] [facility] [id number], [place] [address]- 4556 Dec, IMMUNIZATIONS No Known Immunizations SOCIAL HISTORY Never Assessed REASON FOR VISIT Diabetes Pt in for M GLEN Trevino PLAN OF CARE Activity Details Follow Up 6 Weeks Reason:DM VITAL SIGNS Height 64 in 2017-10-27 Weight 189.4 lbs 2017-10-27 Temperature 98.2 degrees Fahrenheit 2017-10-27 Heart Rate 94 bpm 2017-10-27 Respiratory Rate 20 2017-10-27 BMI 32.51 kg/m2 2017-10-27 Blood pressure systolic 122 mmHg 2017-10-27 Blood pressure diastolic 68 mmHg 2017-10-27 MEDICATIONS Medication Instructions Dosage Frequency Start Date End Date Duration Status Test strips Contour test strips 2 times a day test blood sugar 12h Aug, Active Simvastatin 80 MG Orally Once a day 1 tablet in the evening 24h Sep, 90 days Active Aspirin Adult Low Strength 81 MG Orally Once a day 1 tablet 24h Active NovoLog Mix 70/30 Flexpen (70-30) 100 UNIT/ML Subcutaneous 2 times a day Inject 120 units 12h Active Farxiga 10 MG Orally Once a day 1 tablet 24h Apr, 90 days Active Melatonin 5 MG Orally Once a day 1 tablet at bedtime as needed with food 24h Active Tizanidine HCl 4 MG Orally Once a day 1 tablet as needed at bedtime 24h July, 30 days Active Amaryl 4 MG Orally Once a day in AM 1 tablet with breakfast or the first main meal of the day Sep, 30 day(s) Active NovoFine 32G X 6 MM subcutaneously 3 times a day as directed for use with Victoza and Novolog Pens 8h July, 90 days Active Victoza 18 MG/3ML Subcutaneous Once a day inject 1.8 ml 24h 90 days Active Lamictal 200 MG Orally every evening 1 tablet May, 30 days Active Toprol XL 25 mg take 1 tablet by Oral route 1 time per day take at hs May, Active Actos 45 MG Orally Once a day #60 samples 1 tablet Apr, Active Celexa 40 MG Orally Once a day 1 tablet 24h May, 30 days Active Migraine Relief 250-250-65 MG Orally Once a day 2 tablets 24h Active Ativan 0.5 MG Orally Once [...]
--- OUTSIDE RECORDS SUMMARY | 2018-06-14 14:29 | XMS REPORT ---
Author Author ARIAN US Organization 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 Name Role Phone ARIAN US Unavailable PROBLEMS Type Condition ICD9-CM Code ETD23-NM Code Onset Dates Condition Status SNOMED Code Problem Bipolar 1 disorder F31.9 Active 648361299 Problem Hyperlipidemia, unspecified E78.5 Active 78983123 Problem Type 2 diabetes mellitus with complication E11.8 Active 977358438 Problem Other chronic pain G89.29 Active 26354932 Problem Post laminectomy syndrome M96.1 Active 95979130 Problem Lumbago with sciatica, left side M54.42 Active 586537890 Problem Eye exam normal Z01.00 Active 454706031 Problem New daily persistent headache G44.52 Active 908847520 Problem Acute bilateral low back pain with right-sided sciatica M54.41 Active 347293528 Problem Type 2 diabetes mellitus with hyperglycemia E11.65 Active 59755467 Problem 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 Active 370011522 Problem Bipolar disorder, in partial remission, most recent episode manic F31.73 Active 83201085 Problem Extreme poverty Z59.5 Active 79216060 Problem Obesity, unspecified 278.00 Active 155881550 Problem Hyperlipidemia 272.4 Active 47488667 Problem Diabetes E11.9 Active 648627972 Problem Irritable bowel syndrome with diarrhea K58.0 Active 878308092 Problem 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 [address], [place] [address] Dec, 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 and Extreme poverty Z59.5 [place] [address] 53488- 2948 Nov, Type 2 diabetes mellitus with complication E11.8 ; Pain of left upper arm M79.622 ; Pain in right upper arm M79.621 ; Hyperglycemia R73.9 ; Lumbago with sciatica, left side M54.42 and Other chronic pain G89.29 [place] [place] [id number] [place] [address] 53866- 4860 Oct, Bipolar 1 disorder F31.9 ; 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 and Extreme poverty Z59.5 [place] [place] [id number] [place] [address] 81920- 9513 Oct, Type 2 diabetes mellitus with hyperglycemia E11.65 ; 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 and Other acute gastritis without hemorrhage K29.00 [place] [address] [place] [address] 78387- 8227 Oct, Bipolar 1 disorder F31.9 ; 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 and Bipolar disorder, in partial remission, most recent episode manic F31.73 [place] [address] [place] [address] 99071- 6319 Aug, Bipolar 1 disorder F31.9 [place] [address] [place] [address] 37056- 4840 Aug, [place] [place] [id number] [place] [address] 82337- 7161 Aug, [place] [address] [place] [address] 67172- 6955 Aug, Bipolar 1 disorder F31.9 ; 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 and Extreme poverty Z59.5 [place] [address] [place] [address] 98291- 6089 July, Type 2 diabetes mellitus with complication E11.8 [place] [address] [place] [address] 88057- 3656 July, Bipolar 1 disorder F31.9 ; 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 and Extreme poverty Z59.5 [place] [address] [place] [address] 53424- 0884 Jun, Bipolar 1 disorder F31.9 ; 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 and Extreme poverty Z59.5 [place] [address], [place] [address] 3302 Jun, Bipolar 1 disorder F31.9 ; 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 and Extreme poverty Z59.5 [place] [address] [place] [address] 98602- 9126 Jun, Bipolar 1 disorder F31.9 ; 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 and Extreme poverty Z59.5 [place] [address] [place] [address] 41219- 8937 May, Urinary tract infection without hematuria, site unspecified N39.0 [place] [id number] [place] [address] 94384- 1992 May, Bipolar 1 disorder F31.9 ; 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 and Extreme poverty Z59.5 [place] [id number] [place] [address] 12516- 7609 Apr, Diabetes E11.9 and Breast cancer screening Z12.31 [place] [place] [id number] [place] [address] 52866- 0337 Apr, Bipolar 1 disorder F31.9 and 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 [place] [place] [id number] [place] [address] 88763- 1005 Mar, Bipolar 1 disorder F31.9 ; 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 and Extreme poverty Z59.5 [place] [id number] [place] [address] 81951- 1934 Mar, New daily persistent headache G44.52 ; Leg pain 729.5 and History of carpal tunnel release Z98.890 [place] [address] [place] [address] 47318- 7613 Mar, Hyperlipidemia, unspecified E78.5 [place] [place] [id number] [place] [address] 21967- 1961 Mar, Bipolar 1 disorder F31.9 ; 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 and Extreme poverty Z59.5 [place] [address] [place] [address] 34825- 8511 Feb, Bipolar 1 disorder F31.9 ; 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 and Extreme poverty Z59.5 [place] [id number] [place] [address] 50822- 2487 Feb, Diabetes E11.9 [place] [id number] [place] [address] Feb, Viral syndrome B34.9 [place] [place] [id number] [place] [address] 89354- 6155 Jan, Other viral agents as the cause of diseases classified elsewhere B97.89 and Acute upper respiratory infection, unspecified J06.9 [place] [place] [id number] [place] [address] 80167- 2032 Jan, Bipolar 1 disorder F31.9 and 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 [place] [id number] [place] [address] 16039- 6125 Jan, Bipolar 1 disorder F31.9 ; 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 and Extreme poverty Z59.5 [place] [id number] [place] [address] 80807- 3616 Dec, Diabetes E11.9 [place] [address] 14121- 9466 Dec, Diabetes E11.9 and Encounter for immunization Z23 [place] [id number] [place] [address] 31988- 7541 Dec, Bipolar 1 disorder F31.9 ; 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 and Extreme poverty Z59.5 [place] [id number] [place] [address] 81433- 0684 Dec, Back pain M54.9 [place] [address] 67940- 3490 Nov, [place] [place] [id number] [place] [address] 89192- 6136 Nov, Bipolar 1 disorder F31.9 ; 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 and Extreme poverty Z59.5 [place] [address] [place] [address] 66330- 4918 Nov, Bipolar 1 disorder F31.9 ; 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 and Extreme poverty Z59.5 [place] [address] [place] [address] 74460- 2590 Oct, 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 and Bipolar 1 disorder F31.9 [place] [id number] [place] [address] 30588- 5362 Oct, Bipolar 1 disorder F31.9 ; 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 and Extreme poverty Z59.5 [place] [id number] [place] [address] 63720- 4629 Oct, Back pain M54.9 [place] [place] [id number] [place] [address] 52589- 4237 Oct, 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 and Type 2 diabetes mellitus with complication E11.8 [place] [id number] [place] [address] 70465- 5254 Sep, Bipolar 1 disorder F31.9 ; 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 and Extreme poverty Z59.5 [place] [id number] [place] [address] 66931- 8332 Sep, 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 and Bipolar 1 disorder F31.9 [place] [address] [place] [address] 28919- 7918 Sep, Bipolar 1 disorder F31.9 ; 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 [address], [place] [address] Aug, [facility] [id number] [place] [address] 57023- 7374 Aug, [facility] [id number] [place] [address] 57621- 2502 Aug, [facility] [id number] [place] [address] 60025- 4880 July, 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 and Extreme poverty Z59.5 [place] [id number] [place] [address] 69693- 3995 July, Back pain M54.9 and Diabetes E11.9 [place] [place] [id number] [place] [address] 66536- 6312 Jun, Bipolar 1 disorder F31.9 ; 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 and Extreme poverty Z59.5 [place] [address] 81022- 1005 May, Hyperlipidemia, unspecified E78.5 [place] [address] 98795- 9984 13 Apr, 2016 Breast cancer screening Z12.39 [place] [address] 33692- 0236 Mar, [place] [address] 34781- 4946 Mar, Bipolar disorder, current episode mixed, unspecified F31.60 [place] [address] 70580- 1183 Mar, Bipolar 1 disorder F31.9 ; 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 and Extreme poverty Z59.5 [place] [id number] [place] [address] 96180- 6438 Feb, Acute nasopharyngitis J00 [place] [address] 53308- 0981 27 Feb, 2016 Dental examination Z01.20 [place] [address] 05211- 0005 21 Feb, 2016 Dental cavities K02.9 and Chronic periodontitis, unspecified K05.30 [place] [address] 21676- 7535 13 Feb, 2016 Low back pain M54.5 and Extreme poverty Z59.5 [place] [address] [place] [address] 67486- 0963 08 Feb, 2016 [place] [id number] [place] [address]- 9268 05 Feb, 2016 Routine gynecological examination V72.31 ; Breast cancer screening Z12.39 and Herpes simplex type 1 infection B00.9 [place] [id number] [place] [address] 48192- 9806 02 Feb, 2016 Diabetes E11.9 [place] [place] [id number] [place] [address]- 0002 01 Feb, 2016 Encounter for dental examination and cleaning without abnormal findings Z01.20 [place] [id number] [place] [address] 82284- 8537 22 Jan, 2016 Hyperlipidemia, unspecified E78.5 [place] [id number] [place] [address] 17767- 7300 Jan, Bipolar 1 disorder F31.9 ; 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 and Extreme poverty Z59.5 [place] [id number] [place] [address] 09790- 4692 18 Jan, 2016 Diabetes E11.9 [place] [id number] [place] [address] 08394- 5204 17 Jan, 2016 Diabetes E11.9 [place] [id number] [place] [address] 70481- 5987 14 Dec, 2015 Bipolar 1 disorder F31.9 ; 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 and Extreme poverty Z59.5 [place] [address] [place] [address] 65847- 6962 13 Dec, 2015 Bipolar disorder, current episode mixed, unspecified F31.60 and 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 [place] [id number] [place] [address] 04931- 4575 16 Nov, 2015 Bipolar 1 disorder F31.9 ; 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 ; Extreme poverty Z59.5 and Non compliance with medical treatment Z91.19 [place] [id number] [place] [address] 78344- 0869 Oct, [place] [id number] [place] [address] 11363- 7120 Oct, Dental caries K02.9 [place] [id number] [place] [address] 37668- 9353 Oct, Low back pain M54.5 and Other chronic pain G89.29 [place] [place] [id number] [place] [address] 83090- 2646 Oct, Bipolar 1 disorder F31.9 ; 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5 and Non compliance with medical treatment Z91.19 [place] [id number] [place] [address] 23629- 7995 Oct, [place] [id number] [place] [address] 32872- 2253 Sep, Type 2 diabetes mellitus with complication E11.8 [place] [id number] [place] [address] 48418- 4181 Sep, Bipolar disorder, current episode mixed, unspecified F31.60 [place] [id number] [place] [address] 06460- 2986 Sep, Bipolar disorder, current episode mixed, unspecified F31.60 [place] [address], [place] [address]- 3313 Sep, Bipolar disorder, in partial remission, most recent episode manic F31.73 ; 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 ; Extreme poverty Z59.5 and Non compliance with medical treatment Z91.19 [place] [address] [place] [address] 64286- 8770 Aug, Bipolar disorder, in partial remission, most recent episode manic F31.73 ; 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 ; Extreme poverty Z59.5 and Non compliance with medical treatment Z91.19 [place] [address] [place] [address] 95391- 8284 Aug, Bipolar disorder, in partial remission, most recent episode manic F31.73 ; 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 ; Extreme poverty Z59.5 and Non compliance with medical treatment Z91.19 [place] [address] [place] [address] 29721- 9725 Aug, [place] [address] [place] [address] 47105- 7162 July, Bipolar disorder, in partial remission, most recent episode manic F31.73 ; 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 ; Extreme poverty Z59.5 and Non compliance with medical treatment Z91.19 [place] [address] [place] [address] 13706- 0171 July, Bipolar disorder, current episode mixed, unspecified F31.60 [place] [address] [place] [address] 36688- 8839 July, Bipolar disorder, in partial remission, most recent episode manic F31.73 ; 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 ; Extreme poverty Z59.5 and Non compliance with medical treatment Z91.19 [place] [address] [place] [id number] [place] [address] 47311- 5943 July, 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 and Chronic pain G89.29 [facility] [address], [place] [address]- 9838 Jun, 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 and Bipolar 1 disorder F31.9 [place] [address], [place] [address]- 3821 Jun, [place] [id number] [place] [address] 06100- 3702 Jun, [place] [id number] [place] [address] 08683- 3077 Jun, [place] [id number] [place] [address] 15628- 7209 Jun, Bipolar disorder, in partial remission, most recent episode manic F31.73 ; 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 and Non compliance with medical treatment Z91.19 [place] [id number] [place] [address] 31952- 5021 May, Bipolar disorder, in partial remission, most recent episode manic F31.73 ; 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 and Non compliance with medical treatment Z91.19 [place] [address] [place] [address] 42330- 3843 May, Bipolar disorder, in partial remission, most recent episode manic F31.73 [place] [address] [place] [address] 29093- 5242 May, Diabetes E11.9 and Chronic pain G89.29 [place] [address] [place] [address] 71954- 8084 May, [place] [id number] [place] [address] 68397- 4015 May, Bipolar disorder, in partial remission, most recent episode manic F31.73 ; Non compliance with medical treatment Z91.19 and 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 [place] [address] [place] [address] 70381- 1900 May, Type 2 diabetes mellitus with complication E11.8 and Back pain M54.9 [place] [id number] [place] [address] 77487- 3744 May, Bipolar disorder, in partial remission, most recent episode manic F31.73 and 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 [place] [id number] [place] [address] 07665- 0450 Apr, [place] [id number] [place] [address] 24385- 0533 Apr, [place] [id number] [place] [address] 98359- 8682 Apr, [place] [id number] [place] [address] 62073- 8857 Apr, Diabetes E11.9 ; Irritable bowel syndrome with diarrhea K58.0 and Lumbar radiculopathy M54.16 [place] [id number] [place] [address] 88452- 4265 Apr, Breast screening Z12.39 [place] [id number] [place] [address] 08404- 0774 Apr, Bipolar disorder, in partial remission, most recent episode manic F31.73 ; Non compliance with medical treatment Z91.19 and 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 [place] [id number] [place] [address] 00728- 8034 Mar, Edema, unspecified type R60.9 and Type 2 diabetes mellitus with complication E11.8 [place] [id number] [place] [address] 56689- 3056 Mar, Bipolar disorder, in partial remission, most recent episode manic F31.73 ; Non compliance with medical treatment Z91.19 ; 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 and Extreme poverty Z59.5 [place] [id number] [place] [address] 71716- 0062 Mar, Bipolar disorder, current episode mixed, unspecified F31.60 ; 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 ; Extreme poverty Z59.5 and Generalized anxiety disorder F41.1 [place] [address] [place] [address] 06279- 3496 Mar, Bipolar disorder, in partial remission, most recent episode manic F31.73 ; 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 and Extreme poverty Z59.5 [place] [id number] [place] [address] 54875- 6032 Feb, Bipolar disorder, in partial remission, most recent episode manic F31.73 ; 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 and Extreme poverty Z59.5 [place] [id number] [place] [address] 66840- 8181 Feb, Bipolar disorder, in partial remission, most recent episode manic F31.73 ; 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 and Extreme poverty Z59.5 [place] [id number] [place] [address] 49098- 3755 Feb, [place] [id number] [place] [address] 99953- 7229 Jan, Type 2 diabetes mellitus with complication E11.8 and Petechiae R23.[address] [place] [address] 27550- 3802 Jan, Type 2 diabetes mellitus with complication E11.8 ; Edema, unspecified R60.9 ; Petechiae R23.3 and Diabetes E11.9 [place] [id number] [place] [address] 73960- 0633 Jan, Bipolar disorder, in partial remission, most recent episode manic F31.73 ; 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 [address] [place] [id number] [place] [address] 98963- 1743 Dec, Edema, due to unspecified malnutrition type, unspecified edema R60.9 and Essential hypertension I10 [place] [address] [address]- 1963 Dec, Bipolar disorder, in partial remission, most recent episode manic F31.73 [place] [address] [place] [id number] [place] [address] 96441- 4471 Nov, Bipolar I disorder, most recent episode (or current) mixed, unspecified 296.60 [place] [address] 43146- 5892 Nov, Stress incontinence, female 625.6 ; Back pain 724.5 and Leg pain 729.5 [place] [address] [place] [id number] [place] [address] 33498- 9774 18 Nov, 2014 Generalized anxiety disorder 300.02 and Bipolar II disorder 296.89 [place] [address] [place] [id number] [place] [address] 46315- 7632 Nov, Bipolar I disorder, most recent episode (or current) mixed, unspecified 296.60 [place] [address] [place] [id number] [place] [address] 98530- 9098 Oct, [facility] [address] [id number] [place] [address] 37245- 5736 Oct, [place] [address] [place] [id number] [place] [address] 58404- 9615 Oct, [facility] [address] [id number] [place] [address] 93202- 9301 Oct, Bipolar I disorder, most recent episode (or current) mixed, unspecified 296.60 [place] [address] [place] [address]- 2083 Sep, [address] [facility] [id number] [place] [address] 20721- 4603 Sep, Bipolar I disorder, most recent episode (or current) mixed, unspecified 296.60 [facility] [address], [place] [address]- 1007 Sep, [facility] [address] [place] [id number] [place] [address] 19880- 9979 Sep, [facility] [id number] [place] [address] 92567- 1458 Sep, Bipolar I disorder, most recent episode (or current) mixed, unspecified 296.60 [facility] [address] [address]- 2155 Sep, Bipolar I disorder, most recent episode (or current) mixed, unspecified 296.60 [facility] [address], [place] [address]- 7475 Sep, [facility] [address] [address] [id number] [place] [address] 784907- 5311 Sep, Anxiety 300.00 ; Diabetes 250.[address] [facility] [address] [address]- 0931 Aug, [facility] [address] [address] 94[address] Aug, [facility] [address] [address]- 5590 Aug, [facility] [address] [id number] 8370 Aug, Bipolar I disorder, most recent episode (or current) mixed, unspecified 296.60 [facility] [address] [address]- 5183 Aug, Generalized anxiety disorder 300.02 and Bipolar II disorder 296.89 [facility] [address], [place] [address]- 8039 July, Bipolar I disorder, most recent episode (or current) mixed, unspecified 296.60 [facility] [address], [place] [address]- 4516 July, Cough 786.2 [facility] [address] [place] [id number] [place] [address] 37869 2541 July, Bipolar I disorder, most recent episode (or current) mixed, unspecified 296.60 [facility] [address], [place] [address]- 7876 Jun, Diabetes [address].00 [facility] [address], [place] [address]- [address], [address] [facility] [address], [place] [address]- 6090 Jun, [facility] [address] [address] 2821 May, [facility] [address] [address] 6075 May, [facility] [address] [address] 4685 May, [facility] [address] [address] 8936 May, [facility] [address] [address] 2546 May, [facility] [address] 5911 May, [facility] [address] 8836 Apr, [facility] [address] 8616 Apr, [facility] [place] [facility] [address] [id number] [place] [address]- 8544 Apr, [facility] [place] [facility] [address] [id number] [place] [address]- 9966 Apr, [facility] [place] [facility] [address] [id number] [place] [address]- 9736 Apr, [facility] [place] [facility] [address] [id number] [place] [address] 2546 Apr, [facility] [place] [facility] [address] [id number] [place] [address] 2542 Apr, [facility] [place] [facility] [address] [id number] [place] [address]- 3127 Apr, [facility] [place] [facility] [address] [id number] [place] [address]- 6958 Mar, [facility] [place] [facility] [address] [id number] [place] [address]- 9966 Mar, [facility] [place] [facility] [address] [id number] [place] [address]- 6716 Mar, [facility] [place] [facility] [address] [id number] [place] [address]- 2108 Mar, [facility] [place] [facility] [address] [id number] [place] [address]- 5341 Mar, [facility] [place] [facility] [address] [id number] [place] [address]- 6225 Mar, [facility] [place] [facility] [address] [id number] [place] [address] 2544 Mar, [facility] [place] [facility] [address] [id number] [place] [address]- 2545 Mar, [facility] [place] [facility] [address] [id number] [place] [address]- 1488 Feb, [facility] [place] [facility] [address] [id number] [place] [address]- 6497 Feb, [facility] [place] [facility] [address] [id number] [place] [address]- 8478 Feb, [facility] [place] [facility] [address] [id number] [place] [address]- 0658 Feb, [facility] [place] [facility] [address] [id number] [place] [address]- 0563 Feb, [facility] [place] [facility] [address] [id number] [place] [address]- 7629 Feb, [facility] [place] [facility] [address] [id number] [place] [address]- 2339 Feb, [facility] [place] [facility] [address] [id number] [place] [address]- 0055 Feb, [facility] [place] [facility] [address] [id number] [place] [address]- 6744 Feb, [facility] [place] [facility] [address] [id number] [place] [address]- 8288 Feb, [facility] [place] [facility] [address] [id number] [place] [address]- 4793 Jan, [facility] [place] [facility] [address] [id number] [place] [address]- 0960 Jan, [facility] [place] [facility] [address] [id number] [place] [address]- 5556 Jan, [facility] [place] [facility] [address] [id number], [place] [address]- 5327 Jan, [facility] [place] [facility] [address] [id number] [place] [address]- 0649 Jan, [facility] [place] [facility] [address] [id number] [place] [address]- 1980 Jan, [facility] [place] [facility] [address] [id number] [place] [address]- 5959 Jan, [facility] [place] [facility] [address] [id number] [place] [address]- 6091 Jan, [facility] [place] [facility] [address] [id number] [place] [address]- 5150 Jan, [facility] [place] [facility] [address] [id number] [place] [address]- 9567 Jan, [facility] [place] [facility] [address] [id number] [place] [address]- 2326 Jan, [facility] [place] [facility] [address] [id number] [place] [address]- 2163 Jan, [facility] [place] [facility] [address] [id number] [place] [address]- 4326 Jan, [facility] [place] [facility] [address] [id number] [place] [address]- 8025 Jan, [facility] [place] [facility] [address] [id number] [place] [address]- 2583 Jan, [facility] [place] [facility] [address] [id number] [place] [address]- 1803 Dec, [facility] [place] [facility] [address] [id number] [place] [address]- 5074 Dec, [facility] [place] [facility] [address] [id number] [place] [address]- 8535 Dec, [facility] [place] [facility] [address] [id number] [place] [address]- 6542 Dec, [facility] [place] [facility] [address] [id number] [place] 8869 Dec, [facility] [place] [facility] [address] [id number] [place] 3856 Dec, [facility] [place] [facility] [address] [id number] [place] 1139 Dec, [facility] [place] [facility] [address] [id number] [place] [address]- 0861 07 Oct, 2013 [facility] [place] [facility] [address] [id number] [place] [address]- 8733 25 Sep, 2013 [facility] [place] [facility] [address] [id number] [place] [address]- 9606 25 Sep, 2013 [facility] [place] [facility] [address] [id number] [place] [address]- 1676 10 Sep, 2013 [facility] [place] [facility] [address] [id number] [place] [address]- 4855 10 Sep, 2013 [facility] [place] [facility] [address] [id number] [place] [address]- 9963 08 Sep, 2013 [facility] [place] [facility] [address] [id number] [place] [address]- 4026 08 Sep, 2013 [facility] [place] [facility] [address] [id number] [place] [address]- 3555 08 Sep, 2013 [facility] [place] [facility] [address] [id number], [place] [address]- 6978 08 Sep, 2013 [facility] [place] [facility] [address] [id number] [place] [address]- 7660 08 Sep, 2013 [facility] [place] [facility] [address] [id number] [place] [address]- 2882 08 Sep, 2013 [facility] [place] [facility] [address] [id number], [place] [address]- 0176 04 Sep, 2013 [facility] [place] [facility] [address] [id number], [place] [address]- 2544 04 Sep, 2013 [facility] [place] [facility] [address] [id number] [place] [address]- 2544 03 Sep, 2013 [facility] [place] [facility] [address] [id number], [place] [address]- 0713 02 Sep, 2013 [facility] [place] [facility] [address] [id number], [place] [address]- 6452 02 Sep, 2013 [facility] [place] [facility] [address] [id number] [place] [address]- 8204 Oct, [facility] [place] [facility] [address] [id number] [place] [address]- 6669 Oct, [facility] [place] [facility] [address] [id number] [place] [address]- 1464 Oct, [facility] [place] [facility] [address] [id number] [place] [address]- 0082 Oct, [facility] [place] [facility] [address] [id number] [place] [address]- 3488 Oct, [facility] [place] [facility] [address] [id number] [place] [address]- 4661 Oct, [facility] [place] [facility] [address] [id number] [place] [address]- 8430 Oct, [facility] [place] [facility] [address] [id number] [place] [address]- 5890 Oct, [facility] [place] [facility] [address] [id number] [place] [address]- 0255 Oct, [facility] [place] [facility] [address] [id number] [place] [address]- 8822 Oct, [facility] [place] [facility] [address] [id number] [place] [address]- 5003 Oct, [facility] [place] [facility] [address] [id number] [place] [address]- 1554 Oct, [facility] [place] [facility] [address] [id number] [place] [address]- 8804 Oct, [facility] [place] [facility] [address] [id number] [place] [address]- 4600 Oct, [facility] [place] [facility] [address] [id number] [place] [address]- 1296 Sep, [facility] [place] [facility] [address] [id number] [place] [address]- 3281 Sep, [facility] [place] [facility] [address] [id number] [place] [address]- 2991 Sep, 2013 [facility] [place] [facility] [address] [id number] [place] [address]- 5843 Sep, 2013 [facility] [place] [facility] [address] [id number] [place] [address]- 6329 Sep, 2013 [facility] [place] [facility] [address] [id number] [place] [address]- 7343 Sep, [facility] [place] [facility] [address] [id number] [place] [address]- 0493 Sep, [facility] [place] [facility] [address] [id number] [place] [address]- 5631 Sep, [facility] [place] [facility] [address] [id number] [place] [address]- 1225 Aug, [facility] [place] [facility] [address] [id number] [place] [address]- 1559 Aug, [facility] [place] [facility] [address] [id number] [place] [address]- 9290 Aug, [facility] [place] [facility] [address] [id number] [place] [address]- 8103 Aug, [facility] [place] [facility] [address] [id number] [place] [address]- 3401 Aug, [facility] [place] [facility] [address] [id number] [place] [address]- 3995 Aug, [facility] [place] [facility] [address] [id number] [place] [address]- 4913 Aug, [facility] [place] [facility] [address] [id number] [place] [address]- 6336 Aug, [facility] [place] [facility] [address] [id number] [place] [address]- 1564 July, [facility] [place] [facility] [address] [id number] [place] [address]- 0857 July, [facility] [address] [id number] [place] [address]- 2689 July, [facility] [place] [facility] [address] [id number] [place] [address]- 8403 July, [facility] [place] [facility] [address] [id number] [place] [address]- 6361 July, [facility] [place] [facility] [address] [id number] [place] [address]- 1884 July, [facility] [place] [facility] [address] [id number] [place] [address]- 6619 July, [facility] [place] [facility] [address] [id number] [place] [address]- 0191 July, [facility] [place] [facility] [address] [id number] [place] [address]- 7772 Jun, [facility] [place] [facility] [address] [id number] [place] [address]- 8256 Jun, [facility] [place] [facility] [address] [id number] [place] [address]- 3686 Jun, [facility] [place] [facility] [address] [id number] [place] [address]- 0687 Jun, [facility] [place] [facility] [address] [id number] [place] [address]- 8226 Jun, [facility] [place] [facility] [address] [id number] [place] [address]- 3988 Jun, [facility] [place] [facility] [address] [id number] [place] [address]- 9595 Jun, [facility] [place] [facility] [address] [id number] [place] [address]- 7949 Jun, [facility] [place] [facility] [address] [id number] [place] [address]- 7173 Jun, [facility] [place] [facility] [address] [id number] [place] [address]- 8181 Jun, [facility] [place] [facility] [address] [id number] [place] [address]- 9436 Jun, [facility] [place] [facility] [address] [id number] [place] [address]- 8446 Jun, [facility] [address] [id number] [place] [address]- 0827 May, [facility] [place] [facility] [address] [id number] [place] [address]- 5389 May, [facility] [place] [facility] [address] [id number] [place] 6178 May, [facility] [place] [facility] [address] [id number] [place] [address]- 7631 May, [facility] [place] [facility] [address] [id number] [place] [address]- 8566 May, [facility] [place] [facility] [address] [id number] [place] [address]- 8466 May, [facility] [place] [facility] [address] [id number] [place] [address]- 9912 May, [facility] [place] [facility] [address] [id number] [place] [address]- 3867 May, [facility] [place] [facility] [address] [id number] [place] [address]- 2654 May, [facility] [place] [facility] [address] [id number] [place] [address]- 9742 May, [facility] [place] [facility] [address] [id number] [place] 9104 May, [facility] [place] [facility] [address] [id number] [place] [address]- 6504 May, [facility] [place] [facility] [address] [id number] [place] 5960 May, [facility] [place] [facility] [address] [id number] [place] [address]- 1406 May, [facility] [place] [facility] [address] [id number] [place] [address]- 7424 Apr, [facility] [place] [facility] [address] [id number] [place] [address]- 1365 Apr, [facility] [place] [facility] [address] [id number] [place] [address]- 8893 Apr, [facility] [place] [facility] [address] [id number] [place] [address]- 3792 Apr, [facility] [place] [facility] [address] [id number] [place] [address]- 7396 Apr, [facility] [place] [facility] [address] [id number] [place] [address]- 1939 Apr, [facility] [place] [facility] [address] [id number] [place] [address]- 8997 Mar, [facility] [place] [facility] [address] [id number] [place] [address]- 1172 Mar, [facility] [place] [facility] [address] [id number] [place] [address]- 9775 Mar, [facility] [place] [facility] [address] [id number] [place] [address]- 6406 Mar, [facility] [place] [facility] [address] [id number] [place] [address]- 0259 Mar, [facility] [place] [facility] [address] [id number] [place] [address]- 9571 Mar, [facility] [place] [facility] [address] [id number] [place] [address]- 9332 Mar, [facility] [place] [facility] [address] [id number] [place] [address]- 2932 Mar, [facility] [place] [facility] [address] [id number] [place] [address]- 2023 15 Mar, 2013 [facility] [address] [id number] [place] [address]- 0588 Mar, [facility] [address] [id number] [place] [address]- 3887 Mar, [facility] [address] [id number] [place] [address]- 8108 Mar, [facility] [address] [id number] [place] [address]- 2837 Mar, [facility] [address] [id number] [place] [address] Mar, [facility] [address] [id number] [place] [address] Feb, [facility] [address] [id number] [place] [address] Feb, [facility] [address] [id number] [place] [address] Feb, [facility] [address] [id number] [place] [address] Feb, [facility] [address] [id number] [place] [address] Feb, [facility] [address] [id number] [place] [address] Feb, [facility] [address] [id number] [place] [address] 25[address] Feb, [facility] [address] [id number] [place] [address] Feb, [facility] [address] [id number] [place] [address] Feb, [facility] [address] [id number] [place] [address] Feb, [facility] [place] [facility] [address] [id number] [place] [address] Feb, 2012 [facility] [place] [facility] [address] [id number] [place] [address] Feb, 2012 [facility] [place] [facility] [address] [id number] [place] [address] Feb, 2012 [facility] [place] [facility] [address] [id number] [place] [address] Feb, [facility] [place] [facility] [address] [id number] [place] [address] Feb, [facility] [place] [facility] [address] [id number] [place] [address] Feb, [facility] [place] [facility] [address] [id number] [place] [address] 24 Dec, 2012 [facility] [place] [facility] [address] [id number], [place] [address] 24 Dec, 2012 [facility] [place] [facility] [address] [id number], [place] [address] 16 Dec, 2012 [facility] [place] [facility] [address] [id number], [place] [address] 16 Dec, 2012 [facility] [place] [facility] [address] [id number], [place] [address]- [address]28 16 Dec, 2012 [facility] [place] [facility] [address] [id number], [place] [address] 16 Dec, 2012 [facility] [place] [facility] [address] [id number], [place] [address] 14 Dec, 2012 [facility] [place] [facility] [address] [id number], [place] [address] 14 Dec, 2012 [facility] [place] [facility] [address] [facility] [id number] [address] 10 Dec, 2012 [facility] [place] [facility] [address] [id number], [place] [address] 10 Dec, 2012 [facility] [address] [id number] [place] [address] 10 Dec, 2012 [facility] [place] [facility] [address] [id number] [place] [address]- [address] 10 Dec, 2012 [facility] [place] [facility] [address] [id number] [place] [address] Dec, [facility] [place] [facility] [address] [id number] [place] [address] 25 Nov, 2012 [facility] [place] [facility] [address] [id number] [place] [address]- [address]17 20 Nov, 2012 [facility] [place] [facility] [address] [id number] [place] [address]- [address] 18 Nov, 2012 [facility] [place] [facility] [address] [id number] [place] [address]- [address]30 16 Nov, 2012 [facility] [place] [facility] [address] [id number] [place] [address]- 7768 12 Nov, 2012 [facility] [place] [facility] [address] [id number] [place] [address]- [address]347 11 Nov, 2012 [facility] [place] [facility] [address] [id number] [place] [address]- [address]37 05 Nov, 2012 [facility] [place] [facility] [address] [id number] [place] [address]- 7864 15 Oct, 2012 [facility] [place] [facility] [address] [id number] [place] [address]- [address] Oct, [facility] [place] [facility] [address] [id number] [place] [address]- [address] Sep, [facility] [place] [facility] [address] [id number] [place] [address]- [address] Sep, [facility] [place] [facility] [address] [id number] [place] [address]- [address]347 Sep, [facility] [place] [facility] [address] [id number] [place] [address]- 8529 17 Sep, 2012 [facility] [address] [id number] [place] [address]- [address] 15 Sep, 2012 [facility] [place] [facility] [address] [id number] [place] [address]- 2546 09 Sep, 2012 [facility] [place] [facility] [address] [id number] [place] [address]- [address]127 08 Sep, 2012 [facility] [place] [facility] [address] [id number] [place] [address]- [address] Aug, [facility] [place] [facility] [address] [id number] [place] [address]- 4040 Aug, [facility] [place] [facility] [address] [id number] [place] [address]- 2043 16 Aug, 2012 [facility] [place] [facility] [address] [id number] [place] [address]- [address]276 Aug, [facility] [address] [id number] [place] [address]- [address]643 Aug, [facility] [place] [facility] [address] [id number] [place] [address]- [address]394 Aug, [facility] [place] [facility] [address] [id number] [place] [address]- 2692 Aug, [facility] [place] [facility] [address] [id number] [place] [address]- [address]562 Aug, [facility] [place] [facility] [address] [id number] [place] [address]- 39[address] July, [facility] [place] [facility] [address] [id number] [place] [address]- 15[address] July, [facility] [place] [facility] [address] [id number] [place] [address]- [address]66 July, [facility] [place] [facility] [address] [id number] [place] [id number] July, [facility] [address] [id number] [place] [address]- [address] July, [facility] [address] [id number] [place] [address]- 47[address] Jun, [facility] [address] [id number] [place] [address] May, [facility] [place] [facility] [address] [id number] [place] [address] May, [facility] [address] [id number] [place] [address] May, [facility] [place] [facility] [address] [id number] [place] [address] Apr, [facility] [address] [id number] [place] [address] Apr, [facility] [place] [facility] [address] [id number] [place] [address] Apr, [facility] [address] [id number] [place] [address]247 Mar, [facility] [address] [id number] [place] [address] Mar, [facility] [place] [facility] [address] [id number] [place] [address] Mar, [facility] [place] [facility] [address] [id number] [place] [address] 1836 Mar, [facility] [place] [facility] [address] [id number] [place] [address] 43[address] Mar, [facility] [place] [facility] [address] [id number] [place] [address] 4716 Mar, [facility] [place] [facility] [address] [id number] [place] [address]- 2546 Mar, [facility] [place] [facility] [address] [id number] [place] [address]- 64[address] 31 Feb, 2012 [facility] [place] [facility] [address] [id number] [place] [address]- 4426 31 Feb, 2012 [facility] [place] [facility] [address] [id number] [place] [address]- [address]256 Feb, [facility] [place] [facility] [address] [id number] [place] [address]- 4966 18 Feb, 2012 [facility] [place] [facility] [address] [id number] [place] [address]- 8083 17 Feb, 2012 [facility] [place] [facility] [address] [id number] [place] [address]- 9759 17 Feb, 2012 [facility] [place] [facility] [address] [id number] [place] [address]- 8875 Feb, [facility] [place] [facility] [address] [id number] [place] [address] Feb, [facility] [place] [facility] [address] [id number] [place] [address]- 118[address] Jan, [facility] [place] [facility] [address] [id number] [place] [address]- 0830 Jan, [facility] [place] [facility] [address] [facility] [id number] [place] [address]- 3[address] Jan, [facility] [place] [facility] [address] [id number] [place] [address]- 7492 Jan, [facility] [place] [facility] [address] [id number], [place] [address]- [address] Jan, [facility] [place] [facility] [address] [id number] [place] [address]- 2101 Jan, [facility] [place] [facility] [address] [facility] [id number] [place] [address]- 2595 Jan, [facility] [place] [facility] [address] [id number] [place] [address] Jan, [facility] [place] [facility] [address] [id number] [place] [address]- 9539 Jan, [facility] [place] [facility] [address] [id number] [place] [address]- 4326 Jan, [facility] [place] [facility] [address] [id number] [place] [address]- 8[address] Jan, [facility] [place] [facility] [address] [id number] [place] [address], [place] [address]- [address]168 Jan, [facility] [place] [facility] [address] [id number] [place] [address]- 4992 Jan, [facility] [place] [facility] [address] [id number] [place] [address]- 1710 Jan, [facility] [place] [facility] [address] [id number] [place] [address]- 6540 Jan, [facility] [place] [facility] [address] [id number] [place] [address]- 2846 Jan, [facility] [place] [facility] [address] [id number] [place] [address]- 7533 Dec, [facility] [place] [facility] [address] [id number] [place] [address]- 2199 Dec, [facility] [place] [facility] [address] [id number] [place] [address]- [address]75 Dec, [facility] [place] [facility] [address] [id number], [place] [address] Dec, [facility] [place] [facility] [address] [id number] [place] [address]- 5530 Dec, [facility] [place] [facility] [address] [id number] [place] [address]- 2294 Dec, [facility] [place] [facility] [address] [id number] [place] [address]- 5633 Dec, [facility] [place] [facility] [address] [id number] [place] [address]- 4668 Dec, [facility] [place] [facility] [address] [id number] [place] [address]- 5641 08 Dec, 2011 [facility] [place] [facility] [address] [id number] [place] [address]- 9569 05 Dec, 2011 [facility] [place] [facility] [address] [id number] [place] [address] 9933 18 Nov, 2011 [facility] [place] [facility] [address] [id number] [place] [address]- 8663 13 Nov, 2011 [facility] [place] [facility] [address] [id number] [place] [address]- 1664 24 Oct, 2011 [facility] [place] [facility] [address] [id number] [place] [address]- 3039 Oct, [facility] [place] [facility] [address] [id number] [place] [address]- 2672 17 Oct, 2011 [facility] [place] [facility] [address] [id number] [place] [address]- 7760 16 Oct, 2011 [facility] [place] [facility] [address] [id number] [place] [address]- 0923 15 Oct, 2011 [facility] [place] [facility] [address] [id number] [place] [address]- 7881 Oct, [facility] [place] [facility] [address] [id number] [place] [address]- 2316 Oct, [facility] [place] [facility] [address] [id number] [place] [address]- 1098 Sep, [facility] [place] [facility] [address] [id number] [place] [address]- 5689 Aug, [facility] [place] [facility] [address] [id number] [place] [address]- 1078 Aug, [facility] [place] [facility] [address] [id number] [place] [address]- 4673 Aug, [facility] [place] [facility] [address] [id number] [place] [address]- 2546 Aug, [facility] [address] [id number] [place] [address]- 6856 Aug, [facility] [address] [id number] [place] [address] 5096 July, [facility] [address] [id number] [place] [address]- 6796 July, [facility] [address] [id number] [place] [address]- 0636 July, [facility] [address] [id number] [place] [address]- 7771 Jun, [facility] [address] [id number] [place] [address]- 5676 Jun, [facility] [address] [id number] [place] [address]- 0236 Jun, [facility] [address] [id number] [place] [address]- 4247 Jun, [facility] [address] [id number] [place] [address]- 0526 May, [facility] [address] [id number] [place] [address]- 1511 May, [facility] [address] [id number] [place] [address]- 2346 29 May, 2011 [facility] [address] [id number] [place] [address]- 1708 May, [facility] [place] [facility] [address] [id number] [place] [address]- 8402 May, [facility] [address] [id number] [place] [address]- 9056 May, [facility] [address] [id number] [place] [address]- 9662 May, [facility] [place] [facility] [address] [id number] [place] [address]- 1137 19 May, 2011 [facility] [place] [facility] [address] [id number] [place] [address]- 6553 08 May, 2011 [facility] [place] [facility] [address] [id number] [place] [address]- 6489 05 May, 2011 [facility] [place] [facility] [address] [id number] [place] [address]- 2316 May, [facility] [place] [facility] [address] [id number] [place] [address]- 7310 May, [facility] [place] [facility] [address] [id number] [place] [address]- 0604 31 Mar, 2011 [facility] [place] [facility] [address] [id number] [place] [address]- 8561 Mar, [facility] [place] [facility] [address] [id number] [place] [address]- 5458 28 Feb, 2011 [facility] [place] [facility] [address] [id number] [place] [address]- 0525 Feb, [facility] [place] [facility] [address] [id number] [place] [address]- 8479 Feb, [facility] [place] [facility] [address] [id number] [place] [address]- 1972 15 Feb, 2011 [facility] [place] [facility] [address] [id number], [place] [address]- 1587 13 Feb, 2011 [facility] [place] [facility] [address] [id number] [place] [address]- 1918 13 Feb, 2011 [facility] [place] [facility] [address] [id number] [place] [address]- 0449 13 Feb, 2011 [facility] [place] [facility] [address] [id number] [place] [address]- 1174 28 Jan, 2011 [facility] [place] [facility] [address] [id number], [place] [address]- 7586 Jan, [facility] [place] [facility] [address] [id number] [place] [address]- 9202 Jan, [facility] [place] [facility] [address] [id number] [place] [address]- 5913 Jan, [facility] [place] [facility] [address] [facility] [id number] [place] [address]- 9496 Jan, [facility] [place] [facility] [address] [id number] [place] [address]- 2272 Jan, [facility] [place] [facility] [address] [id number] [place] [address], [place] [address]- 2293 Dec, [facility] [place] [facility] [address] [id number] [place] [address]- 9259 Dec, [facility] [place] [facility] [address] [facility] [id number], [place] [address]- 2974 Dec, [facility] [place] [facility] [address] [id number] [place] [address]- 5295 July, [facility] [place] [facility] [address] [facility] [id number] [place] [address]- 7064 July, [facility] [place] [facility] [address] [facility] [id number] [place] [address]- 1546 Feb, [facility] [place] [facility] [address] [id number], [place] [address]- 0759 Jan, [facility] [place] [facility] [address] [id number], [place] [address]- 3598 Dec, [facility] [place] [facility] [address] [id number], [place] [address]- 8265 Dec, [facility] [place] [facility] [address] [facility] [id number], [place] [address]- 1774 15 Sep, 2009 [facility] [place] [facility] [address] [facility] [id number], [place] [address]- 4986 Aug, [facility] [place] [facility] [address] [facility] [id number], [place] [address]- [address] Jun, [facility] [address] [facility] [id number]131 Jun, [facility] [address] [facility] [id number] 9730 Jan, [facility] [address] [facility] [id number], [place] [address]- 0953 Jan, [facility] [address] [facility] [id number], [place] [address]- 5244 Jan, [facility] [address] [facility] [id number] [place] [address] 1297 Jan, [facility] [address] [facility] [id number], [place] [address]- 5668 Dec, [facility] [address] [id number], [place] [address] 1328 Dec, [facility] [address] [facility] [id number], [place] [address] Dec, [facility] [address] [facility] [id number], [place] [address]60 Nov, [facility] [address] [facility] [id number], [place] [address] July, [facility] [address] [id number], [place] [address] May, [facility] [address] [facility] [id number], [place] [address] Apr, [facility] [address] [facility] [id number], [place] [address]- [address] Feb, [facility] [address] [facility] [id number][place] [address]16 Dec, IMMUNIZATIONS No Known Immunizations SOCIAL HISTORY Never Assessed REASON FOR VISIT f/u PLAN OF CARE Activity Details Follow Up 2 Weeks Reason: VITAL SIGNS MEDICATIONS Unknown Medications RESULTS No Results PROCEDURES Procedure Date Ordered Result Body Site Psychotherapy, patient &/family, 30 minutes, established patient Oct 27, 2017 INSTRUCTIONS MEDICATIONS ADMINISTERED No Known Medications [...]
--- OUTSIDE RECORDS SUMMARY | 2018-06-14 14:30 | XMS REPORT ---
Author Author [facility] Address [address] [place] [address] Care Team Providers Care Vp Rheumatology Name Role Phone BEVER[facility]O Unavailable PROBLEMS Type Condition ICD9-CM Code EGE58-PT Code Onset Dates Condition Status SNOMED Code Problem Bipolar 1 disorder F31.9 Active 377376766 Problem Hyperlipidemia, unspecified E78.5 Active 52352160 Problem Type 2 diabetes mellitus with complication E11.8 Active 678090435 Problem Other chronic pain G89.29 Active 61710757 Problem Post laminectomy syndrome M96.1 Active 79796914 Problem Lumbago with sciatica, left side M54.42 Active 928029936 Problem Eye exam normal Z01.00 Active 359065353 Problem New daily persistent headache G44.52 Active 193883117 Problem Acute bilateral low back pain with right-sided sciatica M54.41 Active 716946184 Problem Type 2 diabetes mellitus with hyperglycemia E11.65 Active 90704750 Problem 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 Active 346735522 Problem Bipolar disorder, in partial remission, most recent episode manic F31.73 Active 49808639 Problem Extreme poverty Z59.5 Active 60314298 Problem Obesity, unspecified 278.00 Active 368984737 Problem Hyperlipidemia 272.4 Active 76779601 Problem Diabetes E11.9 Active 857562864 Problem Irritable bowel syndrome with diarrhea K58.0 Active 486898393 Problem 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 Active 36212649 Problem Lumbar radiculopathy M54.16 Active 982210890 Problem Non compliance with medical treatment Z91.19 Active 3707883 Problem 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 Z79.891 Active 513101679 ALLERGIES No Information ENCOUNTERS Encounter Location Date Diagnosis [facility] [id number] [address] Nov, [facility] [id number] [place] [address] 16734- 7303 18 Nov, 2017 [id number] [place] [address] 98863- 7578 Nov, [place] [address] [id number] [place] [address] 16534- 2185 Nov, Type 2 diabetes mellitus with complication E11.8 ; Pain of left upper arm M79.622 ; Pain in right upper arm M79.621 ; Hyperglycemia R73.9 ; Lumbago with sciatica, left side M54.42 and Other chronic pain G89.29 [place] [id number] [place] [address] 05608- 9747 Oct, Bipolar 1 disorder F31.9 ; 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 and Extreme poverty Z59.5 [id number] [place] [address] 13120- 1258 Oct, Type 2 diabetes mellitus with hyperglycemia E11.65 ; 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 and Other acute gastritis without hemorrhage K29.00 [place] [address] [id number] [place] [address] 58893- 8411 Oct, Bipolar 1 disorder F31.9 ; 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 and Extreme poverty Z59.5 [address] [id number] [place] [address] 80026- 3400 Sep, Diarrhea, unspecified R19.7 and Vomiting, unspecified R11.10 [place] [id number] [place] [address] 92923- 7278 Aug, Type 2 diabetes mellitus with complication E11.8 [place] [id number] [place] [address] 42887- 2400 Aug, [address] [id number] [place] [address] 27651- 0656 Aug, Bipolar 1 disorder F31.9 ; 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 and Extreme poverty Z59.5 [place] [address] [address] [place] [address] 35892- 2838 Aug, 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 and Bipolar disorder, in partial remission, most recent episode manic F31.73 [address] [address] [place] [address] 24342- 7661 Aug, Bipolar 1 disorder F31.9 [place] [id number] [place] [address] 65035- 7542 Aug, [place] [id number] [place] [address] 91854- 2773 Aug, [place] [id number] [place] [address] 18907- 1929 Aug, Bipolar 1 disorder F31.9 ; 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 and Extreme poverty Z59.5 [place] [id number] [place] [address] 32342- 1236 July, Type 2 diabetes mellitus with complication E11.8 [place] [id number] [place] [address] 02054- 6230 July, Bipolar 1 disorder F31.9 ; 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 and Extreme poverty Z59.5 [place] [address] [place] [address] 50138- 3832 Jun, Bipolar 1 disorder F31.9 ; 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 and Extreme poverty Z59.5 [address] [address] [address] [place] [address] 80133- 1609 Jun, Bipolar 1 disorder F31.9 ; 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 and Extreme poverty Z59.5 [address] [address] [id number] [place] [address] 40337- 5912 Jun, Bipolar 1 disorder F31.9 ; 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 and Extreme poverty Z59.5 [address] [address] [address] [place] [address] 51748- 6455 May, Urinary tract infection without hematuria, site unspecified N39.0 [facility] [address] [place] [address] 73948- 4536 May, Bipolar 1 disorder F31.9 ; 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 and Extreme poverty Z59.5 [address] [address] [place] [address] 35898- 9525 28 Apr, 2017 Diabetes E11.9 and Breast cancer screening Z12.31 [place] [id number] [place] [address] 66718- 7311 20 Apr, 2017 Bipolar 1 disorder F31.9 and 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 [address] [id number] [place] [address] 23437- 7128 Mar, Bipolar 1 disorder F31.9 ; 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 and Extreme poverty Z59.5 [place] [id number] [place] [address] 49184- 3516 Mar, New daily persistent headache G44.52 ; Leg pain 729.5 and History of carpal tunnel release Z98.890 [place] [address] [place] [address] 26146- 9386 Mar, Hyperlipidemia, unspecified E78.5 [place] [address] [place] [address] 53731- 0799 Mar, Bipolar 1 disorder F31.9 ; 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 and Extreme poverty Z59.5 [place] [id number] [place] [address] 09551- 8552 Feb, Bipolar 1 disorder F31.9 ; 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 and Extreme poverty Z59.5 [address] [id number] [place] [address] 95309- 1971 Feb, Diabetes E11.9 [place] [id number] [place] [address] 84177- 2160 Feb, Viral syndrome B34.9 [place] [address] [place] [address] 46900- 4522 Jan, Other viral agents as the cause of diseases classified elsewhere B97.89 and Acute upper respiratory infection, unspecified J06.9 [place] [id number] [place] [address] 14343- 9521 16 Jan, 2017 Bipolar 1 disorder F31.9 and 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 [address] [address] [address] 11025- 1638 Jan, Bipolar 1 disorder F31.9 ; 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 and Extreme poverty Z59.5 [place] [address] 58771- 7918 Dec, Diabetes E11.9 [place] [id number] [place] [address] 27792- 1069 Dec, Diabetes E11.9 and Encounter for immunization Z23 [place] [address] 18887- 9388 Dec, Bipolar 1 disorder F31.9 ; 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 and Extreme poverty Z59.5 [place] [id number] [place] [address] 46409- 3288 Dec, Back pain M54.9 [place] [id number] [place] [address] 86748- 7281 Nov, [place] [id number] [place] [address] 59356- 1296 Nov, Bipolar 1 disorder F31.9 ; 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 and Extreme poverty Z59.5 [place] [id number] [place] [address] 09995- 3178 05 Nov, 2016 Bipolar 1 disorder F31.9 ; 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 and Extreme poverty Z59.5 [place] [id number] [place] [address] 46050- 6485 Oct, 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 and Bipolar 1 disorder F31.9 [address] [address] 7154 Oct, Bipolar 1 disorder F31.9 ; 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 and Extreme poverty Z59.5 [address] [address] [address]- 2676 Oct, Back pain M54.9 [address] [address] [place] [address] 73126- 0128 Oct, 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 and Type 2 diabetes mellitus with complication E11.8 [place] [id number] [place] [address] 72184- 0523 Sep, Bipolar 1 disorder F31.9 ; 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 and Extreme poverty Z59.5 [address] [address] [place] [address] 00105- 2973 Sep, 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 and Bipolar 1 disorder F31.9 [address] [address] [place] [address] 68791- 0004 Sep, Bipolar 1 disorder F31.9 ; 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 and Extreme poverty Z59.5 [address] [address] [address] [place] [address] 58371- 8265 Aug, Diabetes E11.9 ; Hyperlipidemia, unspecified E78.5 and Lumbar radiculopathy M54.16 [address] [address]- 4637 Aug, Bipolar 1 disorder F31.9 ; 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 and Extreme poverty Z59.5 [address] [place] [address] 18227- 5522 Aug, [address] [place] [address] 34535- 3959 Aug, [address] [place] [address] 08890- 0432 Aug, [facility] [id number] [place] [address] 69224- 3930 July, [facility] [id number] [place] [address] 12546- 7970 July, Acute bilateral low back pain with right-sided sciatica M54.41 [facility] [id number] [place] [address] 85220- 6730 July, Bipolar 1 disorder F31.9 ; 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 and Extreme poverty Z59.5 [address] [id number] [place] [address] 36514- 1599 July, Back pain M54.9 and Diabetes E11.9 [address] [id number] [place] [address] 92825- 0210 Jun, Bipolar 1 disorder F31.9 ; 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 and Extreme poverty Z59.5 [address] [id number] [place] [address] 21391- 7780 Jun, Bipolar 1 disorder F31.9 ; 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 and Extreme poverty Z59.5 [address] [id number] [place] [address] 28604- 0042 May, Visit for pelvic exam Z01.419 ; Acute vaginitis N76.0 and Diabetes E11.9 [address] [address] [place] [address] 86360- 4595 May, Bipolar 1 disorder F31.9 ; 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 and Extreme poverty Z59.5 [address] [address] [place] [address] 30594- 9798 May, [address] [id number] [place] [address] 89931- 8257 May, [facility] [id number] [place] [address] 01001- 8852 May, Bipolar 1 disorder F31.9 ; 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 and Extreme poverty Z59.5 [address] [place] [id number] [place] [address] 24936- 8358 May, Hyperlipidemia, unspecified E78.5 [place] [id number] [place] [address] 79236- 1797 13 Apr, 2016 Breast cancer screening Z12.39 [address] 90003- 8930 Mar, [place] [address] 25917- 0948 Mar, Bipolar disorder, current episode mixed, unspecified F31.60 [address] [address] 74910- 3614 Mar, Bipolar 1 disorder F31.9 ; 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 and Extreme poverty Z59.5 [address] 35106- 9432 Feb, Acute nasopharyngitis J00 [address] [address] 00513- 6764 27 Feb, 2016 Dental examination Z01.20 [address] [id number] [place] [address] 91569- 2319 Feb, Dental cavities K02.9 and Chronic periodontitis, unspecified K05.30 [place] [address] [place] [address] 24024- 0336 13 Feb, 2016 Low back pain M54.5 and Extreme poverty Z59.5 [address] [address] [place] [address] 83596- 8510 Feb, [address] [place]- 2072 05 Feb, 2016 Routine gynecological examination V72.31 ; Breast cancer screening Z12.39 and Herpes simplex type 1 infection B00.9 [address] [place] [address]- 1553 Feb, Diabetes E11.9 [address] [id number] [place] [address] 24850- 6783 Feb, Encounter for dental examination and cleaning without abnormal findings Z01.20 [address] [id number] [place] [address] 51535- 9067 Jan, Hyperlipidemia, unspecified E78.5 [place] [id number] [place] [address] 34800- 7551 Jan, Bipolar 1 disorder F31.9 ; 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 and Extreme poverty Z59.5 [address] [id number] [place] [address] 36774- 9239 Jan, Diabetes E11.9 [address] [id number] [place] [address] 11903- 8964 Jan, Diabetes E11.9 [address] [id number] [place] [address] 74735- 1690 14 Dec, 2015 Bipolar 1 disorder F31.9 ; 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 and Extreme poverty Z59.5 [address] [id number] [place] [address] 53520- 8437 13 Dec, 2015 Bipolar disorder, current episode mixed, unspecified F31.60 and 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 [address] [address] [place] [address] 72889- 3370 16 Nov, 2015 Bipolar 1 disorder F31.9 ; 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 ; Extreme poverty Z59.5 and Non compliance with medical treatment Z91.19 [address] [place] [id number] [place] [address] 75625- 3994 Oct, [address] [id number] [place] [address] 34732- 2017 Oct, Dental caries K02.9 [address] [place] [id number] [place] [address] 65588- 5472 Oct, Low back pain M54.5 and Other chronic pain G89.29 [address] [address] [place] [address] 12254- 6110 Oct, Bipolar 1 disorder F31.9 ; 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 ; Extreme poverty Z59.5 and Non compliance with medical treatment Z91.19 [address] [place] [id number] [place] [address] 42982- 3731 Oct, [address] [id number] [place] [address] 40521- 5793 Oct, [address] [place] 79781- 1709 Oct, Dental examination Z01.20 [address] [address] [place] [address] 27592- 5171 Oct, Bipolar 1 disorder F31.9 ; 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 ; Extreme poverty Z59.5 and Non compliance with medical treatment Z91.19 [address] [address] [place] [address] 95552- 6591 Oct, [place] [address] [place] [address] 12832- 9087 Sep, Type 2 diabetes mellitus with complication E11.8 [address] [address] [place] [address] 56427- 4183 Sep, Bipolar disorder, current episode mixed, unspecified F31.60 [address] [address] [place] [address] 54684- 8208 Sep, Bipolar disorder, current episode mixed, unspecified F31.60 [address] [address] [place] [address] 68868- 3975 Sep, Bipolar disorder, in partial remission, most recent episode manic F31.73 ; 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 ; Extreme poverty Z59.5 and Non compliance with medical treatment Z91.19 [address] [address] [address]- 5855 15 Aug, 2015 Bipolar disorder, in partial remission, most recent episode manic F31.73 ; 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 ; Extreme poverty Z59.5 and Non compliance with medical treatment Z91.19 [address] [place] [place] [address] 29226- 9229 Aug, Bipolar disorder, in partial remission, most recent episode manic F31.73 ; 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 ; Extreme poverty Z59.5 and Non compliance with medical treatment Z91.19 [address] [place] [place] [address] 11627- 5006 Aug, [place] [id number] [place] [address] 13093- 4931 July, Bipolar disorder, in partial remission, most recent episode manic F31.73 ; 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 ; Extreme poverty Z59.5 and Non compliance with medical treatment Z91.19 [address] [address] [place] [address] 20949- 2991 July, Bipolar disorder, current episode mixed, unspecified F31.60 [place] [address] [place] [address] 08445- 8300 July, Bipolar disorder, in partial remission, most recent episode manic F31.73 ; 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 ; Extreme poverty Z59.5 and Non compliance with medical treatment Z91.19 [address] [address] [place] [address] 44292- 6591 July, 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 and Chronic pain G89.29 [place] [address] [place] [address] 55532- 7485 Jun, 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 Z79.891 and Bipolar 1 disorder F31.9 [place] [address] [place] [address] 93256- 9055 Jun, [place] [address] [address]- 3803 Jun, [place] [address] [place] [address] 12056- 3148 Jun, [address] [address] [place] [address] 68499- 1990 Jun, Bipolar disorder, in partial remission, most recent episode manic F31.73 ; 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 and Non compliance with medical treatment Z91.19 [address] [address] [place] [address] 06062- 5336 May, Bipolar disorder, in partial remission, most recent episode manic F31.73 ; 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 and Non compliance with medical treatment Z91.19 [place] [id number] [place] [address] 14930- 5640 May, Bipolar disorder, in partial remission, most recent episode manic F31.73 [place] [address] [place] [address] 20762- 5376 May, Diabetes E11.9 and Chronic pain G89.29 [place] [address] [place] [address] 33566- 7376 May, [place] [address] [place] [address] 09490- 1078 May, Bipolar disorder, in partial remission, most recent episode manic F31.73 ; Non compliance with medical treatment Z91.19 and 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 [place] [address] [place] [address] 76514- 2595 May, Type 2 diabetes mellitus with complication E11.8 and Back pain M54.9 [place] [address] [place] [address] 70350- 8912 May, Bipolar disorder, in partial remission, most recent episode manic F31.73 and 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 [place] [id number] [place] [address] 40898- 7784 24 Apr, 2015 [address] [address] [place] [address] 37811- 1848 Apr, [place] [address] [place] [address] 61519- 6057 10 Apr, 2015 [place] [address] [place] [address] 12348- 7955 09 Apr, 2015 Diabetes E11.9 ; Irritable bowel syndrome with diarrhea K58.0 and Lumbar radiculopathy M54.16 [place] [address] [place] [address] 95602- 3455 02 Apr, 2015 Breast screening Z12.39 [place] [address] [place] [address] 50459- 4577 02 Apr, 2015 Bipolar disorder, in partial remission, most recent episode manic F31.73 ; Non compliance with medical treatment Z91.19 and 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 [place] [address] [place] [address] 18304- 8711 Mar, Edema, unspecified type R60.9 and Type 2 diabetes mellitus with complication E11.8 [place] [address] [place] [address] 90658- 0971 Mar, Bipolar disorder, in partial remission, most recent episode manic F31.73 ; Non compliance with medical treatment Z91.19 ; 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 and Extreme poverty Z59.5 [place] [address] [place] [address] 53259- 5827 14 Mar, 2015 Bipolar disorder, current episode mixed, unspecified F31.60 ; 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 ; Extreme poverty Z59.5 and Generalized anxiety disorder F41.1 [place] [address] [address]- 6514 12 Mar, 2015 Bipolar disorder, in partial remission, most recent episode manic F31.73 ; 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 and Extreme poverty Z59.5 [place] [id number] [place] [address] 27677- 2673 14 Feb, 2015 Bipolar disorder, in partial remission, most recent episode manic F31.73 ; 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 and Extreme poverty Z59.5 [place] [id number] [place] [address] 40432- 1014 Feb, Bipolar disorder, in partial remission, most recent episode manic F31.73 ; 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 and Extreme poverty Z59.5 [place] [id number] [place] [address] 09318- 7770 Feb, [place] [address] 74530- 9852 Jan, Type 2 diabetes mellitus with complication E11.8 and Petechiae R23.3 [place] [address] 06330- 3844 Jan, Type 2 diabetes mellitus with complication E11.8 ; Edema, unspecified R60.9 ; Petechiae R23.3 and Diabetes E11.9 [place] [address] [place] [address] 10767- 5283 Jan, Bipolar disorder, in partial remission, most recent episode manic F31.73 ; 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 and Extreme poverty Z59.5 [place] [address] [place] [address] 50421- 1016 Jan, Bipolar disorder, in partial remission, most recent episode manic F31.73 ; 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 and Extreme poverty Z59.5 [place] [address] [place] [address] 00165- 6457 Dec, Bipolar disorder, in partial remission, most recent episode manic F31.73 [place] [id number] [place] [address] 30547- 8864 Dec, Edema, due to unspecified malnutrition type, unspecified edema R60.9 and Essential hypertension I10 [facility] [id number] [place] [address] [id number] Dec, Bipolar disorder, in partial remission, most recent episode manic F31.73 [facility] [id number] [place] [address] [phone] Nov, Bipolar I disorder, most recent episode (or current) mixed, unspecified 296.60 [facility] [id number] [place] [address] [phone] Nov, Stress incontinence, female 625.6 ; Back pain 724.5 and Leg pain 729.5 [place] [address] 7[address]- [address] Nov, Generalized anxiety disorder 300.02 and Bipolar II disorder 296.89 [facility] [id number] [place] [address] [phone] Nov, Bipolar I disorder, most recent episode (or current) mixed, unspecified 296.60 [facility] [id number] [place] [address] 81255- 1494 Oct, [facility] [id number] [place] [address] 22459- 9645 Oct, [facility] [id number] [place] [address] 39960- 2753 Oct, [facility] [id number] [place] [address] 58560- 0066 Oct, Bipolar I disorder, most recent episode (or current) mixed, unspecified 296.60 [facility] [id number] [place] [address] 23764- 6782 Sep, Diabetes 250.00 [facility] [id number] [place] [address] 91708- 0095 Sep, Bipolar I disorder, most recent episode (or current) mixed, unspecified 296.60 [facility] [id number] [place] [address] 17688- 3697 Sep, [facility] [address] [address] 3917 Sep, [facility] [id number] [place] [address] 197157- 4172 Sep, Bipolar I disorder, most recent episode (or current) mixed, unspecified 296.60 [facility] [id number] [place] [address] 539648- 4166 Sep, Bipolar I disorder, most recent episode (or current) mixed, unspecified 296.60 [facility] [id number] [place] [address] 43044- 7245 Sep, [facility] [id number] [place] [address] 941743- 3502 Sep, Anxiety 300.00 ; Diabetes 250.00 and Hyperlipidemia 272.4 [facility] [id number] [place] [address] 96427- 0408 Aug, [facility] [id number] [place] [address] 01790- 9722 Aug, [facility] [id number] [place] [address] 02868- 5615 Aug, [facility] [id number] [place] [address] 98579- 3996 Aug, Bipolar I disorder, most recent episode (or current) mixed, unspecified 296.60 [facility] [address] [address]- 5196 Aug, Generalized anxiety disorder 300.02 and Bipolar II disorder 296.89 [facility] [id number] [place] [address] 88310- 2505 July, Bipolar I disorder, most recent episode (or current) mixed, unspecified 296.60 [facility] [address] [address]- 0048 July, Cough 786.2 [facility] [address] [address]- 2252 July, Bipolar I disorder, most recent episode (or current) mixed, unspecified 296.60 [facility] [address] [address]- 7155 30 Jun, 2014 Diabetes 250.00 [facility] [address] [address]- 6676 14 Jun, 2014 [facility] [address] [address]- 0128 Jun, [facility] [id number] [address]- 5622 May, [facility] [address] [address]- 4499 May, [facility] [address] [address]- 1500 May, [facility] [address] [address]- 9691 May, [facility] [id number] [address]- 2457 May, [facility] [address] [address]- 0369 May, [facility] [id number] 5928 Apr, [facility] [id number] [address]- 6773 Apr, [facility] [address] [address]- 1133 Apr, [facility] [address] 5472 Apr, [facility] [id number] [address]- 3077 Apr, [facility] [address] [id number] [place] [address]- 4917 Apr, [facility] [place] [facility] [address] [id number] [place] [address]- 5375 Apr, [facility] [place] [facility] [address] [id number] [place] [address]- 7263 Apr, [facility] [place] [facility] [address] [id number] [place] [address]- 3191 Mar, [facility] [place] [facility] [address] [id number] [place] [address]- 8304 Mar, [facility] [place] [facility] [address] [id number] [place] [address]- 3947 Mar, [facility] [place] [facility] [address] [id number] [place] [address]- 1970 Mar, [facility] [place] [facility] [address] [id number] [place] [address]- 0956 Mar, [facility] [place] [facility] [address] [id number] [place] [address]- 3730 Mar, [facility] [place] [facility] [address] [id number] [place] [address]- 5305 Mar, [facility] [place] [facility] [address] [id number] [place] [address]- 4442 Mar, [facility] [place] [facility] [address] [id number] [address]- 4719 Feb, [facility] [place] [facility] [address] [id number] [place] [address]- 6840 Feb, [facility] [place] [facility] [address] [id number] [place] [address]- 3709 Feb, [facility] [place] [facility] [address] [id number] [place] [address]- 3499 Feb, [facility] [place] [facility] [address] [id number] [place] [address]- 3859 Feb, [facility] [place] [facility] [address] [id number] [place] [address]- 4767 Feb, [facility] [place] [facility] [address] [id number] [place] [address]- 9287 Feb, [facility] [place] [facility] [address] [id number] [place] [address]- 5084 Feb, [facility] [place] [facility] [address] [id number] [place] [address]- 9035 Feb, [facility] [place] [facility] [address] [id number] [place] [address]- 3588 Feb, [facility] [place] [facility] [address] [id number] [place] [address]- 7837 Jan, [facility] [place] [facility] [address] [id number] [place] [address]- 0165 Jan, [facility] [place] [facility] [address] [id number] [place] [address]- 9623 Jan, [facility] [place] [facility] [address] [id number] [place] [address]- 9244 Jan, [facility] [place] [facility] [address] [facility] [id number] [place] [address]- 7705 Jan, [facility] [place] [facility] [address] [id number] [place] [address]- 3761 Jan, [facility] [place] [facility] [address] [id number] [place] [address]- 4308 Jan, [facility] [place] [facility] [address] [id number] [place] [address]- 3203 Jan, [facility] [place] [facility] [address] [id number] [place] [address]- 6053 Jan, [facility] [place] [facility] [address] [id number] [place] [address]- 7182 Jan, [facility] [place] [facility] [address] [id number] [place] [address]- 4519 Jan, [facility] [place] [facility] [address] [id number] [place] 6945 Jan, [facility] [place] [facility] [address] [id number] [place] [address]- 1181 Jan, [facility] [place] [facility] [address] [id number] [place] [address]- 1662 Jan, [facility] [place] [facility] [address] [id number] [place] [address]- 8337 Jan, [facility] [place] [facility] [address] [id number] [place] [address]- 0973 Dec, [facility] [place] [facility] [address] [id number] [place] [address]- 7895 Dec, [facility] [place] [facility] [address] [id number] [place] [address]- 6860 Dec, [facility] [place] [facility] [address] [id number] [place] [address]- 6941 Dec, [facility] [place] [facility] [address] [id number] [place] [address]- 2758 Dec, [facility] [place] [facility] [address] [id number] [place] [address]- 7006 Dec, [facility] [place] [facility] [address] [id number] [place] [address]- 9488 Dec, [facility] [place] [facility] [address] [id number] [place] 9107 Dec, [facility] [place] [facility] [address] [id number] [place] [address]- 8147 Nov, [facility] [place] [facility] [address] [id number] [place] 1974 Nov, [facility] [place] [facility] [address] [id number] [place] [address]- 7005 10 Nov, 2013 [facility] [place] [facility] [address] [id number] [place] [address]- 0549 10 Nov, 2013 [facility] [place] [facility] [address] [id number] [place] [address]- 0203 08 Nov, 2013 [facility] [place] [facility] [address] [id number] [place] [address]- 1555 08 Sep, 2013 [facility] [place] [facility] [address] [id number] [place] [address]- 2776 08 Sep, 2013 [facility] [place] [facility] [address] [id number] [place] [address]- 0285 08 Sep, 2013 [facility] [place] [facility] [address] [id number] [place] [address]- 9821 08 Nov, 2013 [facility] [place] [facility] [address] [id number] [place] [address]- 1881 08 Nov, 2013 [facility] [place] [facility] [address] [id number] [place] [address]- 0282 04 Nov, 2013 [facility] [place] [facility] [address] [id number] [place] [address]- 0508 04 Nov, 2013 [facility] [place] [facility] [address] [id number] [place] [address]- 5782 03 Nov, 2013 [facility] [place] [facility] [address] [id number] [place] [address]- 3818 02 Nov, 2013 [facility] [place] [facility] [address] [id number] [place] [address]- 2545 Nov, 2013 [facility] [place] [facility] [address] [id number] [place] [address]- 6094 Oct, [facility] [place] [facility] [address] [id number] [place] [address]- 0600 Oct, [facility] [place] [facility] [address] [id number] [place] [address]- 6508 Oct, [facility] [place] [facility] [address] [id number] [place] [address]- 8029 Oct, [facility] [place] [facility] [address] [id number] [place] [address]- 1094 Oct, [facility] [place] [facility] [address] [id number] [place] [address]- 3102 Oct, [facility] [place] [facility] [address] [id number] [place] [address]- 2539 Oct, [facility] [place] [facility] [address] [id number] [place] [address]- 5595 Oct, [facility] [place] [facility] [address] [id number] [place] [address]- 2951 Oct, [facility] [place] [facility] [address] [id number] [place] [address]- 7372 Oct, [facility] [place] [facility] [address] [id number] [place] [address]- 4674 Oct, [facility] [place] [facility] [address] [id number] [place] [address]- 8932 Oct, [facility] [place] [facility] [address] [id number] [place] [address]- 7559 Oct, [facility] [place] [facility] [address] [id number] [place] [address]- 0793 Oct, [facility] [place] [facility] [address] [id number] [place] [address]- 5004 Sep, [facility] [place] [facility] [address] [id number] [place] [address]- 0280 Sep, [facility] [place] [facility] [address] [id number] [place] [address]- 6009 Sep, [facility] [place] [facility] [address] [id number] [place] [address]- 6386 Sep, [facility] [place] [facility] [address] [id number] [place] [address]- 8935 Sep, [facility] [place] [facility] [address] [id number] [place] [address]- 0254 Sep, [facility] [place] [facility] [address] [id number] [place] [address]- 8850 Sep, [facility] [place] [facility] [address] [id number] [place] [address]- 3716 Sep, [facility] [place] [facility] [address] [id number] [place] [address]- 4156 Aug, [facility] [place] [facility] [address] [id number] [place] [address]- 1867 Aug, [facility] [place] [facility] [address] [id number] [place] [address]- 5664 Aug, [facility] [place] [facility] [address] [id number] [place] [address]- 8574 Aug, [facility] [place] [facility] [address] [id number] [place] [address]- 8675 Aug, [facility] [place] [facility] [address] [id number] [place] [address]- 4895 Aug, [facility] [place] [facility] [address] [id number] [place] [address]- 4106 Aug, [facility] [place] [facility] [address] [id number] [place] [address]- 1259 Aug, [facility] [place] [facility] [address] [id number] [place] [address]- 9652 July, [facility] [place] [facility] [address] [id number] [place] [address]- 8376 July, [facility] [place] [facility] [address] [id number] [place] [address]- 3287 July, [facility] [place] [facility] [address] [id number] [place] [address]- 2544 July, [facility] [place] [facility] [address] [id number] [place] [address]- 4776 July, [facility] [place] [facility] [address] [id number] [place] [address]- 3961 July, [facility] [place] [facility] [address] [id number] [place] [address]- 0449 July, [facility] [place] [facility] [address] [id number] [place] [address]- 8602 July, [facility] [place] [facility] [address] [id number] [place] [address]- 6007 Jun, [facility] [place] [facility] [address] [id number] [place] [address]- 3156 Jun, [facility] [place] [facility] [address] [id number] [place] [address]- 9451 Jun, [facility] [place] [facility] [address] [id number] [place] [address]- 6919 Jun, [facility] [place] [facility] [address] [id number] [place] [address]- 1585 Jun, [facility] [place] [facility] [address] [id number] [place] [address]- 3925 Jun, [facility] [place] [facility] [address] [id number] [place] [address]- 1641 Jun, [facility] [place] [facility] [address] [id number] [place] [address]- 7776 Jun, [facility] [place] [facility] [address] [id number] [place] [address]- 0599 Jun, [facility] [place] [facility] [address] [id number] [place] [address]- 9459 Jun, [facility] [place] [facility] [address] [id number] [place] [address]- 6013 Jun, [facility] [place] [facility] [address] [id number] [place] [address]- 1794 Jun, [facility] [place] [facility] [address] [id number] [place] [address]- 5046 26 May, 2013 [facility] [place] [facility] [address] [id number] [place] [address]- 9988 May, [facility] [place] [facility] [address] [id number] [place] [address]- 4376 May, [facility] [place] [facility] [address] [id number] [place] [address]- 5146 May, [facility] [place] [facility] [address] [id number] [place] [address]- 3753 May, [facility] [place] [facility] [address] [id number] [place] [address]- 0427 May, [facility] [place] [facility] [address] [id number] [place] [address]- 7681 May, [facility] [place] [facility] [address] [id number] [place] [address]- 1736 May, [facility] [place] [facility] [address] [id number] [place] [address]- 6726 May, [facility] [place] [facility] [address] [id number] [place] [address]- 7024 May, [facility] [place] [facility] [address] [id number] [place] [address]- 3633 May, [facility] [place] [facility] [address] [id number] [place] [address]- 1932 May, [facility] [place] [facility] [address] [id number] [place] [address]- 5063 10 May, 2013 [facility] [place] [facility] [address] [id number] [place] [address]- 3496 May, [facility] [place] [facility] [address] [id number] [place] [address]- 5606 Apr, [facility] [place] [facility] [address] [id number] [place] [address]- 3152 Apr, [facility] [place] [facility] [address] [id number] [place] [address]- 0176 Apr, [facility] [place] [facility] [address] [id number] [place] [address]- 0756 Apr, [facility] [place] [facility] [address] [id number] [place] [address]- 7906 Apr, [facility] [place] [facility] [address] [id number] [place] [address]- 2006 Apr, [facility] [place] [facility] [address] [id number] [place] [address]- 6892 Mar, [facility] [place] [facility] [address] [id number] [place] [address]- 0703 Mar, [facility] [place] [facility] [address] [id number] [place] [address]- 8323 Mar, [facility] [place] [facility] [address] [id number] [place] [address]- 5954 Mar, [facility] [place] [facility] [address] [id number] [place] [address]- 5816 Mar, [facility] [place] [facility] [address] [id number] [place] [address]- 4763 Mar, [facility] [place] [facility] [address] [id number] [place] [address]- 9006 Mar, [facility] [place] [facility] [address] [id number] [place] [address]- 7190 Mar, [facility] [place] [facility] [address] [id number] [place] [address]- 3259 Mar, [facility] [place] [facility] [address] [id number] [place] [address]- 3948 Mar, [facility] [place] [facility] [address] [id number] [place] [address]- 3725 Mar, [facility] [place] [facility] [address] [id number] [place] [address]- 7395 Mar, [facility] [address] [id number] [place] [address]- 4675 Mar, [facility] [address] [id number] [place] [address]- 0388 Mar, [facility] [address] [id number] [place] [address]- 5961 Feb, [facility] [address] [id number] [place] [address]- 0461 Feb, [facility] [address] [id number] [place] [address]- 3587 Feb, [facility] [address] [id number] [place] [address]- 6428 Feb, [facility] [address] [id number] [place] [address]- 4626 Feb, [facility] [address] [id number] [place] [address]- 1212 Feb, [facility] [address] [id number] [place] [address]- 9716 Feb, [facility] [address] [id number] [place] [address]- 7582 Feb, [facility] [address] [id number] [place] [address]- 7408 Feb, [facility] [address] [id number] [place] [address] Feb, [facility] [address] [id number] [place] [address] Feb, [facility] [address] [id number] [place] [address] 27[address] Feb, [facility] [address] [id number] [place] [address] Feb, [facility] [place] [facility] [address] [id number] [place] [address] 87[address] 05 Feb, 2012 [facility] [place] [facility] [address] [id number] [place] [address] 05 Feb, 2012 [facility] [place] [facility] [address] [id number] [place] [address] 05 Feb, 2012 [facility] [place] [facility] [address] [id number] [place] [address] 24 Dec, 2012 [facility] [place] [facility] [address] [id number] [place] [address] 8532 24 Dec, 2012 [facility] [place] [facility] [address] [id number] [place] [address] 89[address] 16 Dec, 2012 [facility] [place] [facility] [address] [id number] [place] [address] 6527 16 Dec, 2012 [facility] [place] [facility] [address] [id number] [address] 16 Dec, 2012 [facility] [place] [facility] [address] [id number] [place] [address] 16 Dec, 2012 [facility] [place] [facility] [address] [id number] [place] [address] 7917 14 Dec, 2012 [facility] [place] [facility] [address] [id number] [place] [address] 4462 14 Dec, 2012 [facility] [place] [facility] [address] [id number] [place] [address] 3572 10 Dec, 2012 [facility] [place] [facility] [address] [id number] [place] [address] 99[address] 10 Dec, 2012 [facility] [place] [facility] [address] [id number] [place] [address] 9804 10 Dec, 2012 [facility] [place] [facility] [address] [id number] [place] [address] 8752 10 Dec, 2012 [facility] [place] [facility] [address] [id number] [place] [address] Dec, [facility] [address] [id number] [place] [address] 1374 25 Nov, 2012 [facility] [place] [facility] [address] [id number] [place] [address]- 0418 20 Nov, 2012 [facility] [place] [facility] [address] [id number] [place] [address] 0456 18 Nov, 2012 [facility] [place] [facility] [address] [id number] [place] [address] 3030 16 Nov, 2012 [facility] [place] [facility] [address] [id number] [place] [address] 8820 12 Nov, 2012 [facility] [place] [facility] [address] [id number] [place] [address]- 3935 11 Nov, 2012 [facility] [address] [id number] [place] [address] 6759 05 Nov, 2012 [facility] [place] [facility] [address] [id number] [place] [address] 1547 15 Oct, 2012 [facility] [place] [facility] [address] [id number] [place] [address] 0311 Oct, [facility] [place] [facility] [address] [id number] [place] [address] 8[address] Sep, [facility] [place] [facility] [address] [id number] [place] [address]- 5291 Sep, [facility] [place] [facility] [address] [id number] [place] [address] 8067 Sep, [facility] [place] [facility] [address] [id number] [place] [address]- 9558 17 Sep, 2012 [facility] [place] [facility] [address] [id number] [place] [address]- 0468 15 Sep, 2012 [facility] [place] [facility] [address] [id number] [place] [address]- 8973 Sep, [facility] [place] [facility] [address] [id number] [place] [address] 8646 08 Sep, 2012 [facility] [place] [facility] [address] [id number] [place] [address]- 404[address] Aug, [facility] [place] [facility] [address] [id number] [place] [address] 2546 Aug, [facility] [place] [facility] [address] [id number] [place] [address]- 7569 16 Aug, 2012 [facility] [place] [facility] [address] [id number] [place] [address] 1548 Aug, [facility] [place] [facility] [address] [id number] [place] [address]- 1309 Aug, [facility] [place] [facility] [address] [id number] [place] [address]- 0601 Aug, [facility] [place] [facility] [address] [id number] [place] [address] 7259 Aug, [facility] [place] [facility] [address] [id number] [place] [address]- 5974 Aug, [facility] [place] [facility] [address] [id number] [place] [address]- 2026 July, [facility] [place] [facility] [address] [id number] [place] [address] 1286 July, [facility] [place] [facility] [address] [id number] [place] [address] 2896 July, [facility] [place] [facility] [address] [id number] [place] [id number] July, [facility] [place] [facility] [address] [id number] [place] [address]- 9706 July, [facility] [place] [facility] [address] [id number] [place] [address]- 2546 Jun, [facility] [place] [facility] [address] [id number] [place] [address]- 3246 May, [facility] [address] [id number] [place] [address]- 5845 14 May, 2012 [facility] [place] [facility] [address] [id number] [place] [address]- 5245 May, [facility] [address] [id number] [place] [address] 3869 Apr, [facility] [place] [facility] [address] [id number] [place] [address] 7093 Apr, [facility] [address] [id number] [place] [address]- 9484 Apr, [facility] [place] [facility] [address] [id number] [place] [address]- 8468 Mar, [facility] [place] [facility] [address] [id number] [place] [address] 2711 Mar, [facility] [place] [facility] [address] [id number] [place] [address]- 9855 Mar, [facility] [place] [facility] [address] [id number] [place] [address]- 9268 Mar, [facility] [place] [facility] [address] [id number] [place] [address]- 5614 Mar, [facility] [place] [facility] [address] [id number] [place] [address]- 0666 Mar, [facility] [place] [facility] [address] [id number] [place] [address]- 2578 Mar, [facility] [place] [facility] [address] [id number] [place] [address]- 7582 Feb, [facility] [place] [facility] [address] [id number] [place] [address] 1979 Feb, [facility] [place] [facility] [address] [id number] [place] [address]- 8707 Feb, [facility] [place] [facility] [address] [id number] [place] [address] 18 Feb, 2012 [facility] [place] [facility] [address] [id number] [place] [address] Feb, [facility] [place] [facility] [address] [id number] [place] [address] Feb, [facility] [place] [facility] [address] [id number] [place] [address] Feb, [facility] [place] [facility] [address] [id number] [place] [address] Feb, [facility] [place] [facility] [address] [id number] [place] [address] 4[address] Jan, [facility] [place] [facility] [address] [id number] [place] [address] 21[address] Jan, [facility] [place] [facility] [address] [id number] [place] [address] 3606 Jan, [facility] [place] [facility] [address] [id number] [place] [address] 3216 Jan, [facility] [place] [facility] [address] [id number] [place] [address] 8437 Jan, [facility] [place] [facility] [address] [facility] [id number] [place] [address] Jan, [facility] [place] [facility] [address] [id number] [place] [address] 2407 Jan, [facility] [place] [facility] [address] [id number] [place] [address]- 9734 Jan, [facility] [place] [facility] [address] [id number] [place] [address]- 1178 Jan, [facility] [place] [facility] [address] [id number] [place] [address] 2325 Jan, [facility] [place] [facility] [address] [id number] [place] [address] 3[address] Jan, [facility] [place] [facility] [address] [id number] [place] [address]- 3420 Jan, [facility] [place] [facility] [address] [id number] [place] [address]- 0767 Jan, [facility] [place] [facility] [address] [id number] [place] [address]- 5229 Jan, [facility] [place] [facility] [address] [id number] [place] [address] 1815 Jan, [facility] [place] [facility] [address] [id number] [place] [address]- 3658 Jan, [facility] [place] [facility] [address] [id number] [place] [address]- 50[address] Dec, [facility] [place] [facility] [address] [id number] [place] [address]- 7745 Dec, [facility] [place] [facility] [address] [id number] [place] [address]- 8665 Dec, [facility] [place] [facility] [address] [id number] [place] [address]- 7713 Dec, [facility] [place] [facility] [address] [id number] [place] [address]- 9328 Dec, [facility] [place] [facility] [address] [id number] [place] [address]- 1048 Dec, [facility] [place] [facility] [address] [id number] [place] [address]666 Dec, [facility] [place] [facility] [address] [id number] [place] [address]- 8954 Dec, [facility] [place] [facility] [address] [id number] [place] [address]- 2216 Dec, [facility] [place] [facility] [address] [id number] [place] [address]- 7753 Dec, [facility] [place] [facility] [address] [id number] [place] [address] 18 Nov, 2011 [facility] [place] [facility] [address] [id number] [place] [address] 4164 13 Nov, 2011 [facility] [place] [facility] [address] [id number] [place] [address] 9307 24 Oct, 2011 [facility] [place] [facility] [address] [id number] [place] [address]- 0628 Oct, [facility] [place] [facility] [address] [id number] [place] [address] 7182 Oct, [facility] [place] [facility] [address] [id number] [place] [address] 2924 Oct, [facility] [place] [facility] [address] [id number] [place] [address] 8725 Oct, [facility] [place] [facility] [address] [id number] [place] [address]- 7952 Oct, [facility] [place] [facility] [address] [id number] [place] [address] 6704 Oct, [facility] [place] [facility] [address] [id number] [place] [address]- 8873 Sep, [facility] [place] [facility] [address] [id number] [place] [address] 9721 Aug, [facility] [place] [facility] [address] [id number] [place] [address]- 6966 Aug, [facility] [place] [facility] [address] [id number] [place] [address]- 8806 Aug, [facility] [place] [facility] [address] [id number] [place] [address]- 0800 Aug, [facility] [place] [facility] [address] [id number] [place] [address]- 3804 Aug, [facility] [place] [facility] [address] [id number] [place] [address] 9347 July, [facility] [place] [facility] [address] [id number] [place] [address]- 0166 July, [facility] [address] [id number] [place] [address] 5556 July, [facility] [address] [id number] [place] [address]- 2596 Jun, [facility] [address] [id number] [place] [address]- 7246 Jun, [facility] [address] [id number] [place] [address]- 0616 Jun, [facility] [address] [id number] [place] [address]- 1702 Jun, [facility] [address] [id number] [place] [address]- 9172 30 May, 2011 [facility] [address] [id number] [place] [address] 6447 30 May, 2011 [facility] [address] [id number] [place] [address]- 2592 29 May, 2011 [facility] [address] [id number] [place] [address] 8386 28 May, 2011 [facility] [address] [id number] [place] [address] 7862 23 May, 2011 [facility] [address] [id number] [place] [address]- 1628 22 May, 2011 [facility] [address] [id number] [place] [address]- 9255 May, [facility] [place] [facility] [address] [id number] [place] [address]- 6234 19 May, 2011 [facility] [address] [id number] [place] [address]- 2546 08 May, 2011 [facility] [address] [id number] [place] [address]- 410 May, [facility] [place] [facility] [address] [id number] [place] [address]- 5535 May, [facility] [place] [facility] [address] [id number] [place] [address]- 4736 May, [facility] [place] [facility] [address] [id number] [place] [address]- 5530 Mar, [facility] [place] [facility] [address] [id number] [place] [address]- 4647 Mar, [facility] [place] [facility] [address] [id number] [place] [address]- 7883 Feb, [facility] [place] [facility] [address] [id number] [place] [address]- 6158 Feb, [facility] [place] [facility] [address] [id number] [place] [address]- 9053 Feb, [facility] [place] [facility] [address] [id number] [place] [address]- 3345 15 Feb, 2011 [facility] [place] [facility] [address] [id number] [place] [address]- 2737 Feb, [facility] [place] [facility] [address] [id number] [place] [address]- 9679 Feb, [facility] [place] [facility] [address] [id number] [place] [address]- 4404 Feb, [facility] [place] [facility] [address] [id number] [place] [address]- 7126 28 Jan, 2011 [facility] [place] [facility] [address] [id number] [place] [address]- 8508 Jan, [facility] [place] [facility] [address] [id number] [place] [address]- 2566 22 Jan, 2011 [facility] [place] [facility] [address] [id number] [place] [address]- 5552 17 Jan, 2011 [facility] [place] [facility] [address] [id number] [place] [address]- 2690 07 Jan, 2011 [facility] [address] [id number] [place] [address]- 4357 Jan, [facility] [place] [facility] [address] [id number] [place] [address]- 4687 Dec, [facility] [place] [facility] [address] [id number] [place] [address]- 1533 Dec, [facility] [place] [facility] [address] [id number] [place] [address]- 9660 Dec, [facility] [place] [facility] [id number] [place] [address], [place] [address]- [address]278 July, [facility] [place] [facility] [address] [id number] [place] [address]- 2727 July, [facility] [address] [id number] [place] [address]- 7252 Feb, [facility] [place] [facility] [address] [id number] [place] [address]- 8728 Jan, [facility] [place] [facility] [address] [id number] [place] [address]- 4326 Dec, [facility] [place] [facility] [address] [facility] [id number] [place] [address]- 8242 Dec, [facility] [place] [facility] [address] [id number] [place] [address]- 8129 15 Sep, 2009 [facility] [place] [facility] [address] [id number] [place] [address]- 1036 Aug, [facility] [place] [facility] [address] [id number] [place] [address]- 1651 Jun, [facility] [place] [facility] [address] [id number] [place] [address]- 6643 Jun, [facility] [place] [facility] [address] [facility] [id number] [place] [address]- 1802 Jan, [facility] [place] [facility] [id number] [address]- 2440 Jan, [facility] [id number] [address] Jan, [facility] [id number] [address]- 0863 Jan, [facility] [id number] [address] [address] Dec, [facility] [address] [facility] [id number] [place] [address]- 8852 Dec, [facility] [id number] [place] [address]- 5010 Dec, [facility] [id number] [address] Nov, [facility] [id number] [address]- 5297 July, [facility] [id number] [address]- 4123 May, [facility] [id number] [address]- 8933 Apr, [facility] [id number] [address]- 6178 Feb, [facility] [id number] [address]- 7609 Dec, IMMUNIZATIONS No Known Immunizations SOCIAL HISTORY Never Assessed REASON FOR VISIT Ipro completion PLAN OF CARE VITAL SIGNS MEDICATIONS Unknown [...] History back surgery Laminectomy - Ortho 4 [facility] 10/04/2014 Surgical History Pain shot in lower back -Dr. Sheehan 08/23/15 Hospitalization History surgery
--- OUTSIDE RECORDS SUMMARY | 2018-06-14 14:31 | XMS REPORT ---
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 Active 710428460 Problem Hyperlipidemia, unspecified E78.5 Active 32383837 Problem Type 2 diabetes mellitus with complication E11.8 Active 744359003 Problem New daily persistent headache G44.52 Active 784409738 Problem Acute bilateral low back pain with right-sided sciatica M54.41 Active 584714455 Problem Obesity, unspecified 278.00 Active 677423528 Problem Hyperlipidemia 272.4 Active 50489844 Problem Post laminectomy syndrome M96.1 Active 77486550 Problem Eye exam normal Z01.00 Active 834262641 Problem 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 Active 26229237 Problem Non compliance with medical treatment Z91.19 Active 7916562 Problem Bipolar disorder, in partial remission, most recent episode manic F31.73 Active 19102909 Problem Diabetes E11.9 Active 651855475 Problem Extreme poverty Z59.5 Active 75635033 Problem Irritable bowel syndrome with diarrhea K58.0 Active 704309604 ALLERGIES Substance Reaction Event Type Date Status Zithromax Chest pain Drug Allergy Sep, Active Prednisone elevated blood sugars Drug Allergy Sep, Active ENCOUNTERS Encounter Location Date Diagnosis [facility] [address] [facility] [id number] [address] Nov, [facility] [address] [id number] [place] [address] 29102- 6781 Nov, [place] [id number] [place] [address] 92307- 7355 Nov, [place] [address] [place] [id number] [place] [address] 86562- 4602 Nov, [place] [address] [address] [id number] [place] [address] 70169- 6346 Oct, Bipolar 1 disorder F31.9 ; 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 and Extreme poverty Z59.5 [place] [address] [place] [id number] [place] [address] 12972- 0583 Oct, Type 2 diabetes mellitus with hyperglycemia E11.65 ; 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 and Other acute gastritis without hemorrhage K29.00 [place] [address] [place] [address] [id number] [place] [address] 98810- 2347 Oct, Bipolar 1 disorder F31.9 ; 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 and Extreme poverty Z59.5 [place] [address] [address] [id number] [place] [address] 38477- 6645 Sep, Diarrhea, unspecified R19.7 and Vomiting, unspecified R11.10 [place] [address] [address] [id number] [place] [address] 56600- 9234 Aug, Type 2 diabetes mellitus with complication E11.8 [place] [address] [address] [id number] [place] [address] 88278- 3824 Aug, [place] [address] [id number] [place] [address] 87400- 5204 Aug, Bipolar 1 disorder F31.9 ; 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 and Extreme poverty Z59.5 [place] [address] [address] [id number] [place] [address] 15799- 5939 Aug, 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 and Bipolar disorder, in partial remission, most recent episode manic F31.73 [place] [address] [address] [id number] [place] [address] 93381- 9303 Aug, Bipolar 1 disorder F31.9 [facility] [address] [address] 0[address] Aug, [facility] [address] [address]40 Aug, [facility] [id number] [place] [address] 71704- 1933 Aug, Bipolar 1 disorder F31.9 ; 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 and Extreme poverty Z59.5 [place] [address] [address] 8320 July, Type 2 diabetes mellitus with complication E11.8 [place] [address] [place] [address] 18770- 1308 July, Bipolar 1 disorder F31.9 ; 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 and Extreme poverty Z59.5 [place] [address] [place] [address] 38401- 3905 Jun, Bipolar 1 disorder F31.9 ; 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 and Extreme poverty Z59.5 [place] [id number] [place] [address] 03603- 0514 Jun, Bipolar 1 disorder F31.9 ; 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 and Extreme poverty Z59.5 [place] [address] [address] 5025 Jun, Bipolar 1 disorder F31.9 ; 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 and Extreme poverty Z59.5 [place] [address] [address] 6428 May, Urinary tract infection without hematuria, site unspecified N39.0 [facility] [address] [address] 8750 May, Bipolar 1 disorder F31.9 ; 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 and Extreme poverty Z59.5 [place] [address] [place] [address] [id number] [place] [address] 43587- 7320 28 Apr, 2017 Diabetes E11.9 and Breast cancer screening Z12.[address] 16036- 1313 20 Apr, 2017 Bipolar 1 disorder F31.9 and Borderline intellectual functioning R41.[address] 04085- 6673 Mar, Bipolar 1 disorder F31.9 ; 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 and Extreme poverty Z59.[address] 44198- 7179 Mar, New daily persistent headache G44.52 ; Leg pain 729.5 and History of carpal tunnel release Z98.[address] 18347- 4082 Mar, Hyperlipidemia, unspecified E78.[address] 79485- 7855 Mar, Bipolar 1 disorder F31.9 ; 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 and Extreme poverty Z59.[address] 15565- 2802 Feb, Bipolar 1 disorder F31.9 ; 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 and Extreme poverty Z59.5 [place] [id number] [place] [address] 75220- 9342 Feb, Diabetes E11.9 [place] [id number] [place] [address] 40485- 6124 Feb, Viral syndrome B34.[address] 02071- 8365 Jan, Other viral agents as the cause of diseases classified elsewhere B97.89 and Acute upper respiratory infection, unspecified J06.[address] 57327- 2951 Jan, Bipolar 1 disorder F31.9 and 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 [place] [address] [place] [address] [id number] [place] [address] 53460- 8682 Jan, Bipolar 1 disorder F31.9 ; 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 and Extreme poverty Z59.5 [place] [address] [address] [id number] [place] [address] 29376- 2293 Dec, Diabetes E11.9 [place] [address] [place]6834- 4599 Dec, Diabetes E11.9 and Encounter for immunization Z23 [place] [address] 83303- 6209 Dec, Bipolar 1 disorder F31.9 ; 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 and Extreme poverty Z59.5 [place] [address] [place] [id number] [place] [address] 30798- 9948 Dec, Back pain M54.9 [place] [address] [place] [address] [id number] [place] [address] 71378- 8943 Nov, [place] [address] [place] [address] [id number] [place] [address] 06584- 0651 Nov, Bipolar 1 disorder F31.9 ; 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 and Extreme poverty Z59.5 [place] [address] [place] [address] 68584- 6702 Nov, Bipolar 1 disorder F31.9 ; 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 and Extreme poverty Z59.5 [place] [id number] [place] [address] 91749- 4461 Oct, 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 and Bipolar 1 disorder F31.9 [place] [id number] [place] [address] 48996- 9204 Oct, Bipolar 1 disorder F31.9 ; 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 and Extreme poverty Z59.5 [place] [address] [place] [address] [place] [address]- 5116 Oct, Back pain M54.9 [facility] [id number] [place] [address] 25948- 0321 Oct, 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 and Type 2 diabetes mellitus with complication E11.8 [facility] [id number] [place] [address] 13568- 0593 Sep, Bipolar 1 disorder F31.9 ; 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 and Extreme poverty Z59.5 [place] [address] [place] [address] [id number] [place] [address] 55769- 1080 Sep, 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 and Bipolar 1 disorder F31.9 [facility] [address] [id number] [place] [address] 04605- 4665 Sep, Bipolar 1 disorder F31.9 ; 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 and Extreme poverty Z59.5 [place] [address] [place] [address] [id number] [place] [address] 57691- 2835 Aug, Diabetes E11.9 ; Hyperlipidemia, unspecified E78.5 and Lumbar radiculopathy M54.16 [place] [address] [place] [address] [id number] [place] [address] 02704- 8691 Aug, Bipolar 1 disorder F31.9 ; 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 and Extreme poverty Z59.5 [place] [id number] [place] [address] 93514- 0827 Aug, [facility] [address] [id number] [place] [address] 09396- 6616 Aug, [facility] [address] [place] [address] [id number] [place] [address] 83463- 6605 Aug, [facility] [address] [address] [id number] [place] [address] 34355- 9085 July, [place] [address] [place] [address] [id number] [place] [address] 47744- 8894 July, Acute bilateral low back pain with right-sided sciatica M54.41 [place] [address] [place] [address] [id number] [place] [address] 27524- 2861 July, Bipolar 1 disorder F31.9 ; 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 and Extreme poverty Z59.5 [place] [address] [place] [address] [id number] [place] [address] 04318- 3659 July, Back pain M54.9 and Diabetes E11.9 [place] [address] [place] [address] [id number] [place] [address] 87541- 3659 Jun, Bipolar 1 disorder F31.9 ; 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 and Extreme poverty Z59.5 [place] [address] [place] [id number] [place] [address] 58452- 5186 Jun, Bipolar 1 disorder F31.9 ; 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 and Extreme poverty Z59.5 [place] [address] 08134- 7284 May, Visit for pelvic exam Z01.419 ; Acute vaginitis N76.0 and Diabetes E11.9 [place] [address] [place] [id number] [place] [address] 49935- 3789 May, Bipolar 1 disorder F31.9 ; 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 and Extreme poverty Z59.5 [place] [address] [place] [id number] [place] [address] 14449- 7910 May, [place] [address] [place] [id number] [place] [address] 37872- 6776 May, [place] [address] [place] [address] [id number] [place] [address] 94583- 7639 May, Bipolar 1 disorder F31.9 ; 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 and Extreme poverty Z59.5 [place] [address] [place] [id number] [place] [address] 93829- 2228 May, Hyperlipidemia, unspecified E78.5 [place] [address] 39559- 2266 13 Apr, 2016 Breast cancer screening Z12.39 [place] [address] 21339- 1691 Mar, [place] [address] 27964- 1456 Mar, Bipolar disorder, current episode mixed, unspecified F31.60 [place] [address] 69771- 5232 Mar, Bipolar 1 disorder F31.9 ; 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39 and Herpes simplex type 1 infection B00.9 [place] [address] 42933- 6108 Feb, Diabetes E11.9 [place] [address] 89998- 2751 Feb, Encounter for dental examination and cleaning without abnormal findings Z01.20 [place] [address] [place] [id number] [place] [address] 65625- 5672 Jan, Hyperlipidemia, unspecified E78.5 [place] [address] [place] [id number] [place] [address] 32465- 5981 Jan, Bipolar 1 disorder F31.9 ; 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 and Extreme poverty Z59.5 [place] [address] 34665- 6728 18 Jan, 2016 Diabetes E11.9 [place] [address] 951498- 1274 17 Jan, 2016 Diabetes E11.9 [place] [address] 42843- 3231 14 Dec, 2015 Bipolar 1 disorder F31.9 ; 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 and Extreme poverty Z59.5 [place] [address] 62500- 4983 13 Dec, 2015 Bipolar disorder, current episode mixed, unspecified F31.60 and 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 [place] [address] 07230- 6249 16 Nov, 2015 Bipolar 1 disorder F31.9 ; 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 ; Extreme poverty Z59.5 and Non compliance with medical treatment Z91.19 [place] [address] [place] [id number] [place] [address] 55914- 5779 Oct, [place] [address] [place] [id number] [place] [address] 23169- 0020 Oct, Dental caries K02.9 [place] [address] 09120- 6580 Oct, Low back pain M54.5 and Other chronic pain G89.29 [place] [address] [place] [id number] [place] [address] 98165- 9392 Oct, Bipolar 1 disorder F31.9 ; 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 ; Extreme poverty Z59.5 and Non compliance with medical treatment Z91.19 [place] [address] [address]- 1321 Oct, [place] [id number] [place] [address] 71417- 4201 Oct, [place] [address] [place] [address] 64709- 4350 Oct, Dental examination Z01.20 [place] [address] [place] [id number] [place] [address] 34293- 0166 Oct, Bipolar 1 disorder F31.9 ; 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 ; Extreme poverty Z59.5 and Non compliance with medical treatment Z91.19 [place] [address] [place] [address] 58123- 4239 Oct, [place] [address] [place] [id number] [place] [address] 62743- 9798 Sep, Type 2 diabetes mellitus with complication E11.8 [place] [address] [place] [address] 59437- 3170 Sep, Bipolar disorder, current episode mixed, unspecified F31.60 [place] [address] [place] [address] 48745- 8927 Sep, Bipolar disorder, current episode mixed, unspecified F31.60 [place] [address] [place] [address] 70484- 0789 Sep, Bipolar disorder, in partial remission, most recent episode manic F31.73 ; 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 ; Extreme poverty Z59.5 and Non compliance with medical treatment Z91.19 [place] [address] [place] [address] 36206- 1235 Aug, Bipolar disorder, in partial remission, most recent episode manic F31.73 ; 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 ; Extreme poverty Z59.5 and Non compliance with medical treatment Z91.19 [place] [address] [place] [address] 98006- 5923 Aug, Bipolar disorder, in partial remission, most recent episode manic F31.73 ; 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 ; Extreme poverty Z59.5 and Non compliance with medical treatment Z91.19 [place] [address] [place] [id number] [place] [address] 02658- 7958 Aug, [place] [address] [place] [address] [id number] [place] [address] 10631- 5053 July, Bipolar disorder, in partial remission, most recent episode manic F31.73 ; 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 ; Extreme poverty Z59.5 and Non compliance with medical treatment Z91.19 [place] [address] [place] [id number] [place] [address] 81034- 5865 July, Bipolar disorder, current episode mixed, unspecified F31.60 [place] [address] [place] [id number] [place] [address] 34760- 0130 July, Bipolar disorder, in partial remission, most recent episode manic F31.73 ; 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 ; Extreme poverty Z59.5 and Non compliance with medical treatment Z91.19 [place] [address] [place] [address] [id number] [place] [address] 89765- 6708 July, residential current 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 Z79.891 and Chronic pain G89.29 [place] [address] [place] [id number] [place] [address] 75855- 9900 Jun, 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.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 and Bipolar 1 disorder F31.9 [place] [address] [place] [id number] [place] [address] 43642- 2287 Jun, [place] [address] [place] [address] [id number] [place] [address] 69911- 6968 Jun, [place] [address] [place] [id number] [place] [address] 59207- 3672 Jun, [place] [address] [place] [address]- 9406 Jun, Bipolar disorder, in partial remission, most recent episode manic F31.73 ; 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 and Non compliance with medical treatment Z91.19 [place] [address] [place] [address] 15690- 3732 May, Bipolar disorder, in partial remission, most recent episode manic F31.73 ; 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 and Non compliance with medical treatment Z91.19 [place] [address] [place] [id number] [place] [address] 61812- 7656 May, Bipolar disorder, in partial remission, most recent episode manic F31.73 [place] [address] [place] [address] [id number] [place] [address] 83284- 7310 May, Diabetes E11.9 and Chronic pain G89.29 [place] [address] [place] [address] [id number] [place] [address] 22086- 1616 May, [place] [address] [place] [address] [id number] [place] [address] 14127- 2972 May, Bipolar disorder, in partial remission, most recent episode manic F31.73 ; Non compliance with medical treatment Z91.19 and 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 [place] [address] [place] [address] 94308- 6072 May, Type 2 diabetes mellitus with complication E11.8 and Back pain M54.9 [place] [address] [place] [address] 86319- 8499 May, Bipolar disorder, in partial remission, most recent episode manic F31.73 and 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 [place] [address] [address] [id number] [place] [address] 51708- 7295 Apr, [place] [address] [place] [address] [id number] [place] [address] 10562- 3684 Apr, [place] [address] [place] [id number] [place] [address] 40204- 3777 10 Apr, 2015 [place] [address] [place] [address] 33928- 6577 09 Apr, 2015 Diabetes E11.9 ; Irritable bowel syndrome with diarrhea K58.0 and Lumbar radiculopathy M54.16 [place] [address] [place] [address] 46917- 4805 Apr, Breast screening Z12.39 [place] [address] [place] [id number] [place] [address]- 6873 Apr, Bipolar disorder, in partial remission, most recent episode manic F31.73 ; Non compliance with medical treatment Z91.19 and 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60 ; 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 ; Extreme poverty Z59.5 and Generalized anxiety disorder F41.1 [place] [address] [place] [address] 77828- 8108 Mar, Bipolar disorder, in partial remission, most recent episode manic F31.73 ; 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 and Extreme poverty Z59.5 [place] [address] [place] [address] 02486- 3017 Feb, Bipolar disorder, in partial remission, most recent episode manic F31.73 ; 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 and Extreme poverty Z59.5 [place] [address] [address]- 4881 Feb, Bipolar disorder, in partial remission, most recent episode manic F31.73 ; 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 and Extreme poverty Z59.5 [place] [address] [place] [address] 39002- 4548 Feb, [place] [address] [place] [address] [id number] [place] [address] 67210- 7763 Jan, Type 2 diabetes mellitus with complication E11.8 and Petechiae R23.3 [place] [address] [id number] [place] [address] 04410- 0768 Jan, Type 2 diabetes mellitus with complication E11.8 ; Edema, unspecified R60.9 ; Petechiae R23.3 and Diabetes E11.9 [place] [address] [id number] [place] [address] 29739- 6998 Jan, Bipolar disorder, in partial remission, most recent episode manic F31.73 ; 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 and Extreme poverty Z59.5 [place] [address] [id number] [place] [address] 02411- 5976 Jan, Bipolar disorder, in partial remission, most recent episode manic F31.73 ; 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 and Extreme poverty Z59.5 [place] [address] [place] [address] 97626- 9473 Dec, Bipolar disorder, in partial remission, most recent episode manic F31.73 [place] [address] [place] [address] 35033- 7426 Dec, Edema, due to unspecified malnutrition type, unspecified edema R60.9 and Essential hypertension I10 [place] [id number] [place] [address] [phone]- [phone] Dec, Bipolar disorder, in partial remission, most recent episode manic F31.73 [place] [address] [address] [place] [id number] [place] [address] [phone]- 8471 Nov, Bipolar I disorder, most recent episode (or current) mixed, unspecified 296.60 [facility] [address] [place] [id number] [place] [address] [phone]- [phone] Nov, Stress incontinence, female 625.6 ; Back pain 724.5 and Leg pain 729.5 [facility] [address] [place] [id number] [place] [address] [phone]- 2668 Nov, Generalized anxiety disorder 300.02 and Bipolar II disorder 296.89 [facility] [address] [place] [id number] [place] [address] [phone]- [phone] Nov, Bipolar I disorder, most recent episode (or current) mixed, unspecified 296.60 [facility] [address] [place] [id number] [place] [address] 20769- 0544 Oct, [facility] [id number] [place] [address] 25228- 4944 Oct, [facility] [id number] [place] [address] 83092- 0988 Oct, [facility] [id number] [place] [address] 02419- 5975 Oct, Bipolar I disorder, most recent episode (or current) mixed, unspecified 296.60 [facility] [id number] [place] [address] 72179- 5169 Sep, Diabetes 250.00 [facility] [id number] [place] [address] 06827- 3051 Sep, Bipolar I disorder, most recent episode (or current) mixed, unspecified 296.60 [facility] [id number] [place] [address] 77675- 8298 Sep, [facility] [id number] [place] [address] 48455- 9513 Sep, [facility] [id number] [place] [address] 63953- 1073 Sep, Bipolar I disorder, most recent episode (or current) mixed, unspecified 296.60 [facility] [id number] [place] [address] 13027- 7755 Sep, Bipolar I disorder, most recent episode (or current) mixed, unspecified 296.60 [facility] [id number] [place] [address] 07808- 8890 Sep, [facility] [id number] [place] [address] 40164- 1627 Sep, Anxiety 300.00 ; Diabetes 250.00 and Hyperlipidemia 272.4 [address] [id number] [place] [address] 79972- 5343 Aug, [facility] [id number] [place] [address] 16478- 0207 Aug, [facility] [id number] [place] [address] 61972- 2197 Aug, [facility] [id number] [place] [address] 77882- 1729 Aug, Bipolar I disorder, most recent episode (or current) mixed, unspecified 296.[address] [facility] [id number] [place] [address] 52156- 4009 Aug, Generalized anxiety disorder 300.02 and Bipolar II disorder 296.89 [facility] [id number] [place] [address] 25271- 1069 July, Bipolar I disorder, most recent episode (or current) mixed, unspecified 296.60 [facility] [id number] [place] [address] 03339- 7958 July, Cough 786.2 [facility] [id number] [place] [address] 06188- 4800 July, Bipolar I disorder, most recent episode (or current) mixed, unspecified 296.60 [facility] [id number] [place] [address] 99723- 8050 30 Jun, 2014 Diabetes 250.00 [facility] [place] [facility] [address] [facility] [id number] [place] [address]- 5493 14 Jun, 2014 [facility] [place] [facility] [address] [facility] [id number] [place] [address]- 6626 13 Jun, 2014 [facility] [place] [facility] [address] [facility] [id number] [place] [address]- 9627 24 May, 2014 [facility] [place] [facility] [address] [facility] [id number] [place] [address]- 4845 24 May, 2014 [facility] [place] [facility] [address] [facility] [id number] [place] [address]- 6897 10 May, 2014 [facility] [place] [facility] [address] [facility] [id number] [place] [address]- 9744 10 May, 2014 [facility] [place] [facility] [address] [facility] [id number] [place] [address]- 5647 May, [facility] [place] [facility] [address] [facility] [id number] [address]- 5063 10 May, 2014 [facility] [place] [facility] [address] [facility] [id number] [place] [address]- 0390 Apr, [facility] [place] [facility] [address] [facility] [id number] [place] [address]- 4030 Apr, [facility] [place] [facility] [address] [facility] [id number] [address]- 5661 Apr, 2014 [facility] [place] [facility] [address] [facility] [id number] [place] [address]- 8259 Apr, [facility] [place] [facility] [address] [facility] [id number] [place] [address]- 9943 10 Apr, 2014 [facility] [place] [facility] [address] [facility] [id number] [place] [address]- 5003 10 Apr, 2014 [facility] [place] [facility] [address] [id number] 1864 05 Apr, 2014 [facility] [place] [facility] [address] [id number] [place] [address]- 8557 Apr, [facility] [place] [facility] [address] [id number] [place] [address]- 8406 Mar, [facility] [place] [facility] [address] [id number] [place] [address]- 4659 Mar, [facility] [place] [facility] [address] [id number] [place] [address]- 8452 Mar, [facility] [place] [facility] [address] [id number] [place] [address]- 7821 Mar, [facility] [place] [facility] [address] [id number] [place] [address]- 9820 Mar, [facility] [place] [facility] [address] [id number] [place] [address]- 7176 Mar, [facility] [place] [facility] [address] [id number] [place] [address]- 2696 Mar, [facility] [place] [facility] [address] [id number] [place] [address]- 4344 Mar, [facility] [place] [facility] [address] [id number] [place] [address]- 6972 Feb, [facility] [place] [facility] [address] [id number] [place] [address]- 5805 Feb, [facility] [place] [facility] [address] [id number] [place] [address]- 6742 Feb, [facility] [place] [facility] [address] [id number] [place] [address]- 5243 Feb, [facility] [place] [facility] [address] [id number] [place] [address]- 6122 Feb, [facility] [place] [facility] [address] [id number] [place] [address]- 1353 Feb, [facility] [place] [facility] [address] [id number] [address]- 3525 Feb, [facility] [place] [facility] [address] [id number] [place] [address]- 0776 Feb, [facility] [place] [facility] [address] [id number] [place] [address]- 7039 Feb, [facility] [place] [facility] [address] [id number] [place] [address]- 8952 Feb, [facility] [place] [facility] [address] [id number] [place] [address]- 6180 Jan, [facility] [place] [facility] [address] [id number] [place] [address]- 7225 Jan, [facility] [place] [facility] [address] [id number] [place] [address]- 5293 Jan, [facility] [place] [facility] [address] [id number] [place] [address]- 3049 Jan, [facility] [place] [facility] [address] [id number] [place] [address]- 4414 Jan, [facility] [place] [facility] [address] [id number] [place] [address]- 4370 Jan, [facility] [place] [facility] [address] [id number] [place] [address]- 1367 Jan, [facility] [place] [facility] [address] [id number] [place] [address]- 3454 Jan, [facility] [place] [facility] [address] [id number] [place] [address]- 2138 Jan, [facility] [place] [facility] [address] [id number] [place] [address]- 3607 Jan, [facility] [place] [facility] [address] [id number] [place] [address]- 8294 Jan, [facility] [place] [facility] [address] [id number] [place] [address]- 2045 Jan, [facility] [place] [facility] [address] [id number] [place] [address]- 9639 17 Jan, 2014 [facility] [place] [facility] [address] [id number] [place] [address]- 8254 Jan, [facility] [place] [facility] [address] [id number] [place] [address]- 8756 Jan, [facility] [place] [facility] [address] [id number] [place] [address]- 2133 Dec, [facility] [place] [facility] [address] [id number] [place] [address]- 7277 Dec, [facility] [place] [facility] [address] [id number] [place] 4172 Dec, [facility] [place] [facility] [address] [id number] [place] [address]- 6543 Dec, [facility] [place] [facility] [address] [id number] [place] [address]- 2814 Dec, [facility] [place] [facility] [address] [id number] [place] [address]- 2898 Dec, [facility] [place] [facility] [address] [facility] [id number] [place] [address]- 1229 Dec, [facility] [place] [facility] [address] [facility] [id number] [place] [address]- 2107 Dec, [facility] [place] [facility] [address] [id number] [place] [address]- 1469 25 Nov, 2013 [facility] [place] [facility] [address] [id number] [place] [address]- 2058 25 Nov, 2013 [facility] [place] [facility] [address] [id number] [place] [address]- 5310 10 Nov, 2013 [facility] [place] [facility] [address] [id number] [place] [address]- 3901 10 Nov, 2013 [facility] [place] [facility] [address] [id number] [place] [address]- 7172 08 Nov, 2013 [facility] [place] [facility] [address] [id number] [place] [address]- 2137 08 Nov, 2013 [facility] [place] [facility] [address] [id number] [place] [address]- 3196 08 Nov, 2013 [facility] [place] [facility] [address] [id number] [place] [address]- 4932 08 Nov, 2013 [facility] [place] [facility] [address] [id number] [place] [address]- 0546 08 Nov, 2013 [facility] [place] [facility] [address] [id number] [place] [address]- 4891 08 Nov, 2013 [facility] [place] [facility] [address] [id number] [place] [address]- 9665 04 Nov, 2013 [facility] [place] [facility] [address] [id number] [place] [address]- 9767 Nov, 2013 [facility] [place] [facility] [address] [id number] [place] [address]- 8755 Nov, 2013 [facility] [place] [facility] [address] [id number] [place] [address]- 8302 Nov, 2013 [facility] [place] [facility] [address] [id number] [place] [address]- 9859 Nov, 2013 [facility] [place] [facility] [address] [id number] [place] [address]- 9020 Oct, [facility] [place] [facility] [address] [id number] [place] [address]- 6740 Oct, [facility] [place] [facility] [address] [id number] [place] [address]- 5381 Oct, [facility] [place] [facility] [address] [id number] [place] [address]- 9541 Oct, [facility] [place] [facility] [address] [id number] [place] [address]- 9376 Oct, [facility] [place] [facility] [address] [id number] [place] [address]- 0000 Oct, [facility] [place] [facility] [address] [id number] [place] [address]- 8908 Oct, [facility] [place] [facility] [address] [id number] [place] [address]- 8725 Oct, [facility] [place] [facility] [address] [id number] [place] [address]- 9459 Oct, [facility] [place] [facility] [address] [id number] [place] [address]- 1609 Oct, [facility] [place] [facility] [address] [id number] [place] [address]- 8152 Oct, [facility] [place] [facility] [address] [id number] [place] [address]- 5667 Oct, [facility] [place] [facility] [address] [id number] [place] [address]- 2245 Oct, [facility] [place] [facility] [address] [id number] [place] [address]- 3960 Oct, [facility] [place] [facility] [address] [id number] [place] [address]- 4945 Sep, [facility] [place] [facility] [address] [id number] [place] [address]- 2449 Sep, [facility] [place] [facility] [address] [id number] [place] [address]- 7913 Sep, [facility] [place] [facility] [address] [id number] [place] [address]- 0502 Sep, [facility] [place] [facility] [address] [id number] [place] [address]- 3629 Sep, [facility] [place] [facility] [address] [id number] [place] [address]- 9438 Sep, [facility] [place] [facility] [address] [id number] [place] [address]- 6432 Sep, [facility] [place] [facility] [address] [id number] [place] [address]- 6173 Sep, [facility] [place] [facility] [address] [id number] [place] [address]- 9738 Aug, [facility] [place] [facility] [address] [id number] [place] [address]- 9790 Aug, [facility] [place] [facility] [address] [id number] [place] [address]- 5310 Aug, [facility] [place] [facility] [address] [id number] [place] [address]- 4842 Aug, [facility] [place] [facility] [address] [id number] [place] [address]- 7847 Aug, [facility] [place] [facility] [address] [id number] [place] [address]- 0479 Aug, [facility] [place] [facility] [address] [id number] [place] [address]- 6265 Aug, [facility] [place] [facility] [address] [id number] [place] [address]- 4725 Aug, [facility] [place] [facility] [address] [id number] [place] [address]- 7781 July, [facility] [place] [facility] [address] [id number] [place] [address]- 2949 July, [facility] [place] [facility] [address] [id number] [place] [address]- 5708 July, [facility] [place] [facility] [address] [id number] [place] [address]- 5034 July, [facility] [place] [facility] [address] [id number] [place] [address]- 0260 July, [facility] [place] [facility] [address] [id number] [place] [address]- 6626 July, [facility] [place] [facility] [address] [id number] [place] [address]- 3006 July, [facility] [place] [facility] [address] [id number] [place] [address]- 0420 July, [facility] [place] [facility] [address] [id number] [place] [address]- 2121 Jun, [facility] [place] [facility] [address] [id number] [place] [address]- 5910 Jun, [facility] [place] [facility] [address] [id number] [place] [address]- 3202 Jun, [facility] [place] [facility] [address] [id number] [place] [address]- 6240 Jun, [facility] [place] [facility] [address] [id number] [place] [address]- 5712 Jun, [facility] [place] [facility] [address] [id number] [place] [address]- 3112 Jun, [facility] [place] [facility] [address] [id number] [place] [address]- 6503 Jun, [facility] [place] [facility] [address] [id number] [place] [address]- 1781 Jun, [facility] [place] [facility] [address] [id number] [place] [address]- 6777 Jun, [facility] [place] [facility] [address] [id number] [place] [address]- 0433 Jun, [facility] [place] [facility] [address] [id number] [place] [address]- 6057 Jun, [facility] [place] [facility] [address] [id number] [place] [address]- 3811 Jun, [facility] [place] [facility] [address] [id number] [place] [address]- 0865 May, [facility] [place] [facility] [address] [id number] [place] [address]- 5487 May, [facility] [place] [facility] [address] [id number] [place] [address]- 1410 26 May, 2013 [facility] [place] [facility] [address] [id number] [place] [address]- 4029 26 May, 2013 [facility] [place] [facility] [address] [id number] [place] [address]- 2355 13 May, 2013 [facility] [place] [facility] [address] [id number] [place] [address]- 4525 13 May, 2013 [facility] [place] [facility] [address] [id number] [place] [address]- 5494 12 May, 2013 [facility] [place] [facility] [address] [id number] [place] [address]- 8245 12 May, 2013 [facility] [place] [facility] [address] [id number] [place] [address]- 6833 11 May, 2013 [facility] [place] [facility] [address] [id number] [place] [address]- 4023 11 May, 2013 [facility] [place] [facility] [address] [id number] [place] [address]- 1629 May, [facility] [place] [facility] [address] [id number] [place] [address]- 2730 May, [facility] [place] [facility] [address] [id number] [place] [address]- 8211 May, [facility] [place] [facility] [address] [id number] [place] [address]- 5520 May, [facility] [place] [facility] [address] [id number] [place] [address]- 6668 Apr, [facility] [place] [facility] [address] [id number] [place] [address]- 0292 Apr, [facility] [place] [facility] [address] [id number] [place] [address]- 3065 Apr, [facility] [place] [facility] [address] [id number] [place] [address]- 6063 Apr, [facility] [place] [facility] [address] [id number] [place] [address]- 0543 Apr, [facility] [place] [facility] [address] [id number] [place] [address]- 5126 Apr, [facility] [place] [facility] [address] [id number] [place] [address]- 5041 Mar, [facility] [place] [facility] [address] [id number] [place] [address]- 7110 Mar, [facility] [place] [facility] [address] [id number] [place] [address]- 2345 Mar, [facility] [place] [facility] [address] [id number] [place] [address]- 3562 Mar, [facility] [place] [facility] [address] [id number] [place] [address]- 6571 Mar, [facility] [place] [facility] [address] [id number] [place] [address]- 2620 Mar, [facility] [place] [facility] [address] [id number] [place] [address]- 2525 Mar, [facility] [place] [facility] [address] [id number] [place] [address]- 4098 Mar, [facility] [place] [facility] [address] [id number] [place] [address]- 5562 Mar, [facility] [place] [facility] [address] [id number] [place] [address]- 8023 Mar, [facility] [place] [facility] [address] [id number] [place] [address]- 7333 Mar, [facility] [place] [facility] [address] [id number] [place] [address]- [address] Mar, [facility] [place] [facility] [address] [id number] [place] [address] Mar, [facility] [place] [facility] [address] [id number] [address] Mar, [facility] [address] [id number] [place] [address] Feb, 2012 [facility] [address] [id number] [place] [address] Feb, [facility] [address] [id number] [place] [address] Feb, [facility] [place] [facility] [address] [id number] [place] [address] Feb, [facility] [address] [id number] [place] Feb, [facility] [address] [id number] [place] [address] Feb, [facility] [address] [id number] [place] [address] Feb, [facility] [address] [id number] [place] [address] Feb, [facility] [address] [id number] [place] [address] Feb, [facility] [address] [id number] [place] [address] Feb, [facility] [address] [id number] [place] [address] Feb, [facility] [place] [facility] [address] [id number] [address] Feb, [facility] [place] [facility] [address] [id number] [place] [address] Feb, [facility] [place] [facility] [address] [id number] [place] [address] 94[address] Feb, [facility] [place] [facility] [address] [id number] [address] Feb, [facility] [place] [facility] [address] [id number] [place] [address] 05 Feb, 2012 [facility] [place] [facility] [address] [id number] [place] [address] 24 Dec, 2012 [facility] [place] [facility] [address] [id number] [place] [address] 24 Dec, 2012 [facility] [place] [facility] [address] [id number] [place] [address]- [address] 16 Dec, 2012 [facility] [place] [facility] [address] [id number] [place] [address] 16 Dec, 2012 [facility] [place] [facility] [address] [id number] [place] [address] 16 Dec, 2012 [facility] [place] [facility] [address] [id number] [place] [address] 16 Dec, 2012 [facility] [place] [facility] [address] [id number] [place] [address]- [address] 14 Dec, 2012 [facility] [place] [facility] [address] [id number] [place] [address]67 14 Dec, 2012 [facility] [place] [facility] [address] [id number] [place] [address]- [address]448 10 Dec, 2012 [facility] [place] [facility] [address] [id number] [place] [address]- 4268 10 Dec, 2012 [facility] [place] [facility] [address] [id number] [place] [address]- [address]85 10 Dec, 2012 [facility] [place] [facility] [address] [id number] [place] [address] 10 Dec, 2012 [facility] [place] [facility] [address] [id number] [place] [address] 03 Dec, 2012 [facility] [place] [facility] [address] [id number] [place] [address] 25 Nov, 2012 [facility] [place] [facility] [address] [id number] [place] [address] 20 Nov, 2012 [facility] [place] [facility] [address] [id number] [place] [address] 9840 18 Nov, 2012 [facility] [place] [facility] [address] [id number] [place] [address]- [address]161 16 Nov, 2012 [facility] [place] [facility] [address] [id number] [place] [address]- [address]44 12 Nov, 2012 [facility] [place] [facility] [address] [id number] [place] [address]- [address]239 11 Nov, 2012 [facility] [place] [facility] [address] [id number] [place] [address]- [address]365 05 Nov, 2012 [facility] [place] [facility] [address] [id number] [place] [address] 15 Oct, 2012 [facility] [place] [facility] [address] [id number] [place] [address] Oct, [facility] [place] [facility] [address] [id number] [place] [address]- 8427 24 Sep, 2012 [facility] [place] [facility] [address] [id number] [place] [address] 139[address] Sep, [facility] [place] [facility] [address] [id number] [place] [address] Sep, [facility] [place] [facility] [address] [id number] [address] 17 Sep, 2012 [facility] [place] [facility] [address] [id number] [place] [address] 116[address] 15 Sep, 2012 [facility] [place] [facility] [address] [id number] [place] [address]- 69[address] Sep, [facility] [place] [facility] [address] [id number] [address] Sep, [facility] [place] [facility] [address] [id number] [place] [address]- [address] Aug, [facility] [place] [facility] [address] [id number] [place] [address]- 2246 18 Aug, 2012 [facility] [address] [id number] [place] [address]- [address]600 16 Aug, 2012 [facility] [address] [id number] [place] [address]- [address] Aug, [facility] [address] [id number] [place] [address]- [address]267 Aug, [facility] [address] [id number] [place] [address] 359[address] Aug, [facility] [address] [id number] [place] [address]- 2310 Aug, [facility] [address] [id number] [place] [address]- [address]343 Aug, [facility] [address] [id number] [place] [address]- [address] July, [facility] [address] [id number] [place] [address] 265[address] July, [facility] [address] [id number] [place] [address]- [address] July, [facility] [address] [id number] [place] [id number] July, [facility] [address] [id number] [place] [address]- [address] July, [facility] [address] [id number] [place] [address]- [address]46 Jun, [facility] [address] [id number] [place] [address] May, [facility] [place] [facility] [address] [id number] [place] [address] May, [facility] [address] [id number] [place] [address] May, [facility] [address] [id number] [place] [address] Apr, [facility] [address] [id number] [place] [address] Apr, [facility] [address] [id number] [place] [address] Apr, [facility] [address] [id number] [place] [address] Mar, [facility] [address] [id number] [place] [address] Mar, [facility] [address] [id number] [place] [address] 4066 Mar, [facility] [address] [id number] [place] [address] Mar, [facility] [address] [id number] [place] [address] Mar, [facility] [address] [id number] [place] [address] Mar, [facility] [address] [id number] [place] [address] Mar, [facility] [address] [id number] [place] [address] 79[address] Feb, [facility] [address] [id number] [place] [address]267 31 Feb, 2012 [facility] [place] [facility] [address] [id number] [place] [address]- [address] 18 Feb, 2012 [facility] [place] [facility] [address] [id number] [place] [address] 18 Feb, 2012 [facility] [place] [facility] [address] [id number] [place] [address]28 17 Feb, 2012 [facility] [address] [id number] [address] Feb, [facility] [place] [facility] [address] [id number] [place] [address]- [address] Feb, [facility] [place] [facility] [address] [id number] [place] [address]- [address] Feb, [facility] [place] [facility] [address] [id number] [place] [address]- 2478 Jan, [facility] [place] [facility] [address] [id number] [place] [address]- 4[address] Jan, [facility] [place] [facility] [address] [id number] [place] [address]- 1442 Jan, [facility] [place] [facility] [address] [id number] [place] [address] Jan, [facility] [place] [facility] [address] [id number] [place] [address]- 2082 Jan, [facility] [place] [facility] [address] [id number] [place] [address]- 8771 Jan, [facility] [place] [facility] [address] [id number] [place] [address]- 5616 Jan, [facility] [place] [facility] [address] [id number] [place] [address]- [address]180 Jan, [facility] [place] [facility] [address] [id number] [address] Jan, [facility] [place] [facility] [address] [id number] [place] [address] Jan, [facility] [place] [facility] [address] [id number] [place] [address] Jan, [facility] [place] [facility] [address] [id number] [address] Jan, [facility] [place] [facility] [address] [facility] [id number] [place] [address]30 Jan, [facility] [place] [facility] [address] [id number] [place] [address]- 2546 Jan, [facility] [place] [facility] [address] [id number] [place] [address] 5416 Jan, [facility] [place] [facility] [address] [id number] [place] [address]- [address]46 Jan, [facility] [place] [facility] [address] [id number] [place] [address]- [address] Dec, [facility] [place] [facility] [address] [id number] [place] [address]- 1758 Dec, [facility] [place] [facility] [address] [id number] [place] [address]- 7329 Dec, [facility] [place] [facility] [address] [id number] [place] [address]- 0049 Dec, [facility] [place] [facility] [address] [id number] [place] [address]- 6411 Dec, [facility] [place] [facility] [address] [id number] [place] [address]- 4104 Dec, [facility] [place] [facility] [address] [id number] [place] [address] 8317 Dec, [facility] [place] [facility] [address] [id number] [place] [address]- [address]646 Dec, [facility] [place] [facility] [address] [id number] [place] [address] 3618 Dec, [facility] [place] [facility] [address] [id number] [place] [address]- [address]171 05 Dec, 2011 [facility] [place] [facility] [address] [id number] [place] [address] 2546 18 Nov, 2011 [facility] [place] [facility] [address] [id number] [place] [address]- 2546 13 Nov, 2011 [facility] [place] [facility] [address] [id number] [place] [address]- 7549 Oct, [facility] [place] [facility] [address] [id number] [place] [address]- [address]452 Oct, [facility] [place] [facility] [address] [id number] [place] [address]- 3070 Oct, [facility] [place] [facility] [address] [id number] [place] [address]- 5289 Oct, [facility] [place] [facility] [address] [id number] [place] [address] 2746 Oct, [facility] [place] [facility] [address] [id number] [place] [address] 9936 Oct, [facility] [place] [facility] [address] [id number] [place] [address] 6376 Oct, [facility] [place] [facility] [address] [id number] [place] [address] 3720 Sep, [facility] [place] [facility] [address] [id number] [place] [address]- 7011 Aug, [facility] [place] [facility] [address] [id number] [place] [address]- 7027 Aug, [facility] [place] [facility] [address] [id number] [place] [address]- 4746 Aug, [facility] [place] [facility] [address] [id number] [place] [address]- 7779 Aug, [facility] [place] [facility] [address] [id number] [place] [address]- 1774 Aug, [facility] [place] [facility] [address] [id number] [place] [address]- 2162 July, [facility] [place] [facility] [address] [id number] [place] [address]- 8447 July, [facility] [place] [facility] [address] [id number] [place] [address]- 5197 July, [facility] [place] [facility] [address] [id number] [place] [address]- 2597 19 Jun, 2011 [facility] [place] [facility] [address] [id number] [place] [address]- 8526 05 Jun, 2011 [facility] [place] [facility] [address] [id number] [place] [address]- 1006 04 Jun, 2011 [facility] [place] [facility] [address] [id number] [place] [address]- 4986 Jun, [facility] [place] [facility] [address] [id number] [place] [address]- 2229 30 May, 2011 [facility] [place] [facility] [address] [id number] [place] [address]- 3339 30 May, 2011 [facility] [place] [facility] [address] [id number] [place] [address]- 6285 29 May, 2011 [facility] [place] [facility] [address] [id number] [place] [address]- 3706 May, [facility] [place] [facility] [address] [id number] [place] [address]- 1133 May, [facility] [place] [facility] [address] [id number] [place] [address]- 2777 22 May, 2011 [facility] [place] [facility] [address] [id number] [place] [address]- 3341 May, [facility] [place] [facility] [address] [id number] [place] [address]- 7333 May, [facility] [place] [facility] [address] [id number] [place] [address]- 0025 08 May, 2011 [facility] [place] [facility] [address] [id number] [place] [address]- 4844 05 May, 2011 [facility] [place] [facility] [address] [id number] [place] [address]- 1461 02 May, 2011 [facility] [place] [facility] [address] [id number] [place] [address]- 0029 May, [facility] [place] [facility] [address] [id number] [place] [address]- 6306 31 Mar, 2011 [facility] [place] [facility] [address] [id number] [place] [address]- 6358 Mar, [facility] [place] [facility] [address] [id number] [place] [address]- 0195 28 Feb, 2011 [facility] [place] [facility] [address] [id number] [place] [address]- 9168 Feb, [facility] [place] [facility] [address] [id number] [place] [address]- 2762 20 Feb, 2011 [facility] [place] [facility] [address] [id number] [place] [address]- 9955 15 Feb, 2011 [facility] [place] [facility] [address] [id number] [place] [address]- 9171 Feb, [facility] [place] [facility] [address] [id number] [place] [address]- 6298 Feb, [facility] [place] [facility] [address] [id number] [place] [address]- 8860 Feb, [facility] [place] [facility] [address] [id number] [place] [address]- 5905 28 Jan, 2011 [facility] [place] [facility] [address] [id number] [place] [address]- 9986 Jan, [facility] [place] [facility] [address] [id number] [place] [address]- 6455 Jan, [facility] [place] [facility] [address] [id number] [place] [address]- 5809 17 Jan, 2011 [facility] [place] [facility] [address] [id number] [place] [address]- 1221 07 Jan, 2011 [facility] [place] [facility] [address] [id number] [place] [address]- 4827 03 Jan, 2011 [facility] [place] [facility] [address] [id number] [place] [address]- 7653 Dec, [facility] [place] [facility] [address] [id number] [place] [address]- 9534 27 Dec, 2010 [facility] [place] [facility] [address] [id number] [place] [address]- 1854 Dec, [facility] [place] [facility] [address] [id number] [place] [address]- 7006 July, [facility] [place] [facility] [address] [id number] [place] [address]- 1261 July, [facility] [place] [facility] [address] [id number] [place] [address]- 5274 Feb, [facility] [place] [facility] [address] [id number] [place] [address]- 5450 Jan, [facility] [place] [facility] [address] [id number] [place] [address]- 6567 Dec, [facility] [place] [facility] [address] [id number] [place] [address]- 6313 Dec, [facility] [place] [facility] [address] [id number] [place] [address]- 7361 Sep, [facility] [place] [facility] [address] [id number] [place] [address]- 5812 Aug, [facility] [place] [facility] [address] [id number] [place] [address]- 2777 Jun, [facility] [place] [facility] [address] [id number] [place] [address]- 0340 Jun, [facility] [place] [facility] [address] [id number] [place] [address]- 7284 Jan, [facility] [place] [facility] [address] [id number] [place] [address]- 4548 Jan, [facility] [place] [facility] [address] [id number] [place] [address]- 6515 05 Jan, 2009 [facility] [place] [facility] [id number] [address] 2546 Jan, [facility] [id number] [address]- 0070 Dec, [facility] [id number] [address]- 9866 Dec, [facility] [id number] [address]- 3375 Dec, [facility] [id number] [address]- 7227 Nov, [facility] [id number] [place] [address]- 0721 July, [facility] [id number] [place] [address]- 9699 May, [facility] [id number] [place] [address]- 3927 Apr, [facility] [id number] [address]- 6664 Feb, [facility] [id number] [address]- 4304 Dec, IMMUNIZATIONS No Known Immunizations SOCIAL HISTORY Never Assessed REASON FOR VISIT Diarrhea- states for last few weeks has had diarreah, vomiting, and nausea- Roberto Torres RN PLAN OF CARE Activity Details Pending Test H PYLORI (IN HOUSE) VITAL SIGNS Height 64 in 2017-10-11 Weight 188 lbs 2017-10-11 Temperature 98.0 degrees Fahrenheit 2017-10-11 Heart Rate 80 bpm 2017-10-11 Respiratory Rate 22 2017-10-11 BMI 32.27 kg/m2 2017-10-11 Blood pressure systolic 112 mmHg 2017-10-11 Blood pressure diastolic 78 mmHg 2017-10-11 MEDICATIONS Medication Instructions Dosage Frequency Start Date End Date Duration Status Amaryl 4 MG Orally Once a day in AM 1 tablet with breakfast or the first main meal of the day Sep, 30 day(s) Active Victoza 18 MG/3ML Subcutaneous Once a day inject 1.8 ml 24h 90 days Active Test strips Contour test strips 2 times a day test blood sugar 12h Aug, Active Actos 45 MG Orally Once a day #60 samples 1 tablet Apr, Active NovoLog Mix 70/30 Flexpen (70-30) 100 UNIT/ML Subcutaneous 2 times a day Inject 110 units 12h 90 days Active Tizanidine HCl 4 MG Orally Once a day 1 tablet as needed at bedtime 24h July, 30 days Active Lamictal 200 MG Orally every evening 1 tablet May, 30 days Active Toprol XL 25 mg take 1 tablet by Oral route 1 time per day take at hs 10 May, 2013 Active Simvastatin 80 MG Orally Once a day 1 tablet in the evening 24h Sep, 90 days Active NovoFine 32G X 6 MM subcutaneously 3 times a day as directed for use with Victoza and Novolog Pens 8h July, 90 days Active Celexa 40 MG Orally Once a day 1 tablet 24h May, 30 days Active Aspirin Adult Low Strength 81 MG Orally Once a day 1 tablet 24h Active Pantoprazole Sodium 40 mg Orally Once a day 1 tablet 24h Sep, 30 day(s) Active Farxiga 10 MG Orally Once a day 1 tablet 24h Apr, 90 days Active Ativan 0.5 MG Orally Once a day, no early refills 1 tablet as needed Sep, Active RESULTS No Results PROCEDURES Procedure Date Ordered Result Body Site IMMUNOASSAY,INFECTIOUS AGENT October 11, 2017 INSTRUCTIONS MEDICATIONS ADMINISTERED No Known Medications [...]
--- OUTSIDE RECORDS SUMMARY | 2018-06-14 14:32 | XMS REPORT ---
Author Author LOUISE COBOS [facility] Address [address] [place] [address] Care Team Providers Care Director Of Product Development Name Role Phone LOUISE COBOS Unavailable PROBLEMS Type Condition ICD9-CM Code [id number] Code Onset Dates Condition Status SNOMED Code Problem Lumbar radiculopathy M54.16 Active 348107487 Problem intermediate current 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 Z79.891 Active 347519831 Problem Bipolar 1 disorder F31.9 Active 627655466 Problem Type 2 diabetes mellitus with hyperglycemia E11.65 Active 86475633 Problem intermediate current use of insulin Z79.4 Active 904156389 Problem Hyperlipidemia, unspecified E78.5 Active 18632649 Problem Type 2 diabetes mellitus with complication E11.8 Active 756980954 Problem New daily persistent headache G44.52 Active 211058524 Problem Acute bilateral low back pain with right-sided sciatica M54.41 Active 481613575 Problem Obesity, unspecified 278.00 Active 464963899 Problem Hyperlipidemia 272.4 Active 51027857 Problem Post laminectomy syndrome M96.1 Active 50071836 Problem Eye exam normal Z01.00 Active 948962137 Problem 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 Active 38721537 Problem Non compliance with medical treatment Z91.19 Active 2752112 Problem Bipolar disorder, in partial remission, most recent episode manic F31.73 Active 08574936 Problem Diabetes E11.9 Active 616941958 Problem Extreme poverty Z59.5 Active 63439368 Problem Irritable bowel syndrome with diarrhea K58.0 Active 387459421 ALLERGIES Substance Reaction Event Type Date Status Zithromax Chest pain Drug Allergy Aug, Active Prednisone elevated blood sugars Drug Allergy Aug, Active ENCOUNTERS Encounter Location Date Diagnosis [facility] [address] [facility] [id number] [address] Nov, [facility] [address] [place] [id number] [place] [address] 96002- 4907 Nov, [place] [id number] [place] [address] 81985- 6257 Nov, [place] [address] [id number] [place] [address] 38600- 1715 Nov, [place] [address] [id number] [place] [address] 55974- 0876 Oct, Bipolar 1 disorder F31.9 ; 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 and Extreme poverty Z59.5 [place] [address] [id number] [place] [address] 22670- 0082 Oct, Type 2 diabetes mellitus with hyperglycemia E11.65 ; 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 and Other acute gastritis without hemorrhage K29.00 [place] [id number] [place] [address] 87039- 2684 Oct, Bipolar 1 disorder F31.9 ; 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 and Extreme poverty Z59.5 [place] [id number] [place] [address] 85120- 0154 Sep, Diarrhea, unspecified R19.7 and Vomiting, unspecified R11.10 [place] [address] [id number] [place] [address] 31171- 3604 Aug, Type 2 diabetes mellitus with complication E11.8 [place] [address] [address] [id number] [place] [address] 29640- 8258 Aug, [place] [id number] [place] [address] 54107- 6903 Aug, Bipolar 1 disorder F31.9 ; 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 and Extreme poverty Z59.5 [place] [id number] [place] [address] 04997- 2991 Aug, 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 and Bipolar disorder, in partial remission, most recent episode manic F31.73 [place] [id number] [place] [address] 91662- 1953 Aug, Bipolar 1 disorder F31.9 [facility] [address] [address] Aug, [facility] [address] [address] 4[address] Aug, [facility] [id number] [place] [address] 77347- 1971 Aug, Bipolar 1 disorder F31.9 ; 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 and Extreme poverty Z59.5 [facility] [address] [address] 9659 July, Type 2 diabetes mellitus with complication E11.8 [facility] [address] [address] 24[address] July, Bipolar 1 disorder F31.9 ; 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 and Extreme poverty Z59.5 [place] [address] [address] 8[address] Jun, Bipolar 1 disorder F31.9 ; 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 and Extreme poverty Z59.5 [place] [address] [address] 0667 Jun, Bipolar 1 disorder F31.9 ; 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 and Extreme poverty Z59.5 [place] [address] [address] 3201 Jun, Bipolar 1 disorder F31.9 ; 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 and Extreme poverty Z59.5 [facility] [id number] [address]247 May, Urinary tract infection without hematuria, site unspecified N39.0 [facility] [id number] [address] 8498 May, Bipolar 1 disorder F31.9 ; 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 and Extreme poverty Z59.5 [place] [address] [id number] [place] [address] 27086- 5124 28 Apr, 2017 Diabetes E11.9 and Breast cancer screening Z12.31 [place] [address] 90392- 4601 20 Apr, 2017 Bipolar 1 disorder F31.9 and Borderline intellectual functioning R41.[address] 22333- 9225 Mar, Bipolar 1 disorder F31.9 ; 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 and Extreme poverty Z59.[address] 55149- 5205 Mar, New daily persistent headache G44.52 ; Leg pain 729.5 and History of carpal tunnel release Z98.890 [place] [id number] [place] [address] 15819- 5127 Mar, Hyperlipidemia, unspecified E78.5 [place] [id number] [place] [address] 90806- 0842 Mar, Bipolar 1 disorder F31.9 ; 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 and Extreme poverty Z59.5 [place] [address] 67689- 6495 Feb, Bipolar 1 disorder F31.9 ; 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 and Extreme poverty Z59.5 [place] [id number] [place] [address] 36274- 0105 Feb, Diabetes E11.9 [place] [id number] [place] [address] 30771- 4322 Feb, Viral syndrome B34.[address] 02229- 5886 Jan, Other viral agents as the cause of diseases classified elsewhere B97.89 and Acute upper respiratory infection, unspecified J06.9 [place] [id number]- 2546 Jan, Bipolar 1 disorder F31.9 and 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 [place] [address] [place] [address] 61954- 2804 Jan, Bipolar 1 disorder F31.9 ; 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 and Extreme poverty Z59.5 [place] [id number] [place] [address] 92888- 3773 Dec, Diabetes E11.9 [place] [id number] [place] [address] 33875- 0296 Dec, Diabetes E11.9 and Encounter for immunization Z23 [place] [address] [id number] [place] [address] 48184- 5979 Dec, Bipolar 1 disorder F31.9 ; 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 and Extreme poverty Z59.5 [place] [address] [id number] [place] [address] 47038- 0599 Dec, Back pain M54.9 [place] [address] [address] [id number] [place] [address] 44203- 3594 Nov, [place] [address] [id number] [place] [address] 31986- 0886 Nov, Bipolar 1 disorder F31.9 ; 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 and Extreme poverty Z59.5 [place] [address] [place] [address] 33180- 6121 Nov, Bipolar 1 disorder F31.9 ; 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 and Extreme poverty Z59.5 [place] [id number] [place] [address] 23207- 3581 Oct, 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 and Bipolar 1 disorder F31.9 [place] [id number] [place] [address] 80399- 2001 Oct, Bipolar 1 disorder F31.9 ; 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 and Extreme poverty Z59.5 [place] [address] [id number] [place] [address] 95653- 0888 16 Oct, 2016 Back pain M54.9 [place] [address] [id number] [place] [address] 60746- 8951 Oct, 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 and Type 2 diabetes mellitus with complication E11.8 [place] [address] [address] [id number] [place] [address] 56143- 6333 Sep, Bipolar 1 disorder F31.9 ; 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 and Extreme poverty Z59.5 [place] [address] [id number] [place] [address] 68875- 5127 Sep, 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 and Bipolar 1 disorder F31.9 [place] [address] [id number] [place] [address] 52772- 9803 Sep, Bipolar 1 disorder F31.9 ; 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 and Extreme poverty Z59.5 [place] [address] [id number] [place] [address] 33409- 2734 Aug, Diabetes E11.9 ; Hyperlipidemia, unspecified E78.5 and Lumbar radiculopathy M54.16 [place] [id number] [place] [address] 21454- 4644 Aug, Bipolar 1 disorder F31.9 ; 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 and Extreme poverty Z59.5 [place] [address] [address] [id number] [place] [address] 87589- 8444 Aug, [place] [address] [id number] [place] [address] 23179- 4054 Aug, [place] [address] [address] [id number] [place] [address] 94935- 0262 Aug, [place] [address] [address] [id number] [place] [address] 14607- 5511 July, [place] [address] [id number] [place] [address] 11758- 0509 July, Acute bilateral low back pain with right-sided sciatica M54.41 [place] [id number] [place] [address] 53105- 2050 July, Bipolar 1 disorder F31.9 ; 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 and Extreme poverty Z59.5 [place] [id number] [place] [address] 38834- 1154 July, Back pain M54.9 and Diabetes E11.9 [place] [address] [id number] [place] [address] 56670- 0723 Jun, Bipolar 1 disorder F31.9 ; 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 and Extreme poverty Z59.5 [place] [address] [id number] [place] [address] 33249- 5441 Jun, Bipolar 1 disorder F31.9 ; 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 and Extreme poverty Z59.5 [place] [address] [address] [id number] [place] [address] 89434- 7173 May, Visit for pelvic exam Z01.419 ; Acute vaginitis N76.0 and Diabetes E11.9 [place] [address] [id number] [place] [address] 70126- 3459 May, Bipolar 1 disorder F31.9 ; 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 and Extreme poverty Z59.5 [place] [id number] [place] [address] 48428- 0842 May, [place] [address] [address] [id number] [place] [address] 88782- 1784 May, [place] [address] [address] [id number] [place] [address] 30032- 6728 May, Bipolar 1 disorder F31.9 ; 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 and Extreme poverty Z59.5 [place] [id number] [place] [address] 84216- 2870 May, Hyperlipidemia, unspecified E78.5 [place] [address] [id number] [place] [address] 61004- 9729 13 Apr, 2016 Breast cancer screening Z12.39 [place] [address] 11823- 0475 Mar, [place] [address] [id number] [place] [address] 16327- 8865 Mar, Bipolar disorder, current episode mixed, unspecified F31.[address] 91517- 9683 Mar, Bipolar 1 disorder F31.9 ; 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 and Extreme poverty Z59.[address] 78131- 8424 Feb, Acute nasopharyngitis J00 [address] 42456- 6809 Feb, Dental examination Z01.[address] 03513- 7848 Feb, Dental cavities K02.9 and Chronic periodontitis, unspecified K05.[address] 59816- 0091 Feb, Low back pain M54.5 and Extreme poverty Z59.5 [place] [id number] [place] [address] 43106- 3995 Feb, [address] 22840- 7262 05 Feb, 2016 Routine gynecological examination V72.31 ; Breast cancer screening Z12.39 and Herpes simplex type [address] infection [address] 43758- 7094 Feb, Diabetes E11.9 [place] [id number] [place] [address] 18390- 9988 Feb, Encounter for dental examination and cleaning without abnormal findings Z01.20 [place] [address] [id number] [place] [address] 79687- 0901 22 Jan, 2016 Hyperlipidemia, unspecified E78.5 [place] [address] [id number] [place] [address] 96074- 0568 Jan, Bipolar 1 disorder F31.9 ; 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 and Extreme poverty Z59.5 [place] [address] 74763- 4352 18 Jan, 2016 Diabetes E11.9 [place] [address] [id number] [place] [address] 906087- 8711 17 Jan, 2016 Diabetes E11.9 [place] [address] [id number] [place] [address] 623998- 4064 14 Dec, 2015 Bipolar 1 disorder F31.9 ; 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 and Extreme poverty Z59.5 [place] [address] [id number] [place] [address] 12349- 5636 13 Dec, 2015 Bipolar disorder, current episode mixed, unspecified F31.60 and 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 [place] [address] [place] [id number] [place] [address] 56801- 9681 16 Nov, 2015 Bipolar 1 disorder F31.9 ; 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 ; Extreme poverty Z59.5 and Non compliance with medical treatment Z91.19 [place] [address] [id number] [place] [address] 19661- 7500 Oct, [place] [address] [id number] [place] [address] 00646- 1741 Oct, Dental caries K02.9 [place] [address] [id number] [place] [address] 63518- 3085 Oct, Low back pain M54.5 and Other chronic pain G89.29 [place] [address] [id number] [place] [address] 37194- 0799 Oct, Bipolar 1 disorder F31.9 ; 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 ; Extreme poverty Z59.5 and Non compliance with medical treatment Z91.19 [place] [address] [address]- 4039 Oct, [place] [address] [id number] [place] [address] 28389- 9333 Oct, [place] [address] [place] [id number] [place] [address] 04085- 4094 Oct, Dental examination Z01.20 [place] [address] [id number] [place] [address] 31080- 6972 Oct, Bipolar 1 disorder F31.9 ; 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 ; Extreme poverty Z59.5 and Non compliance with medical treatment Z91.19 [place] [address] [place] [address] 55385- 5116 Oct, [place] [address] [id number] [place] [address] 09471- 9497 Sep, Type 2 diabetes mellitus with complication E11.8 [place] [address] [place] [address] 62680- 8967 Sep, Bipolar disorder, current episode mixed, unspecified F31.60 [place] [address] [place] [address] 80484- 2107 Sep, Bipolar disorder, current episode mixed, unspecified F31.60 [place] [address] [place] [address] 42323- 5070 Sep, Bipolar disorder, in partial remission, most recent episode manic F31.73 ; 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 ; Extreme poverty Z59.5 and Non compliance with medical treatment Z91.19 [place] [address] [place] [address] 38383- 7025 Aug, Bipolar disorder, in partial remission, most recent episode manic F31.73 ; 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 ; Extreme poverty Z59.5 and Non compliance with medical treatment Z91.19 [place] [address] [address]- 9057 Aug, Bipolar disorder, in partial remission, most recent episode manic F31.73 ; 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 ; Extreme poverty Z59.5 and Non compliance with medical treatment Z91.19 [place] [address] [place] [address] 33723- 5180 Aug, [place] [address] [address] [id number] [place] [address] 21578- 7359 July, Bipolar disorder, in partial remission, most recent episode manic F31.73 ; 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 ; Extreme poverty Z59.5 and Non compliance with medical treatment Z91.19 [place] [address] [place] [address] 11752- 5887 July, Bipolar disorder, current episode mixed, unspecified F31.60 [place] [address] [place] [address] 51311- 2084 July, Bipolar disorder, in partial remission, most recent episode manic F31.73 ; 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 ; Extreme poverty Z59.5 and Non compliance with medical treatment Z91.19 [place] [address] [place] [address] 90249- 6657 July, intermediate current 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 Z79.891 and Chronic pain G89.29 [place] [address] [place] [address] 03402- 5581 Jun, 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 Z79.891 and Bipolar 1 disorder F31.9 [place] [address] [place] [address] 27791- 8167 Jun, [place] [id number] [place] [address] 55260- 2285 Jun, [place] [address] [address]- 0718 Jun, [place] [address] [place] [address] 26343- 4393 Jun, Bipolar disorder, in partial remission, most recent episode manic F31.73 ; 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 and Non compliance with medical treatment Z91.19 [place] [address] [place] [address] 89899- 1706 May, Bipolar disorder, in partial remission, most recent episode manic F31.73 ; 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 and Non compliance with medical treatment Z91.19 [place] [address] [place] [id number] [place] [address] 24859- 4332 May, Bipolar disorder, in partial remission, most recent episode manic F31.73 [place] [address] [place] [id number] [place] [address] 12572- 9059 May, Diabetes E11.9 and Chronic pain G89.29 [place] [address] [place] [id number] [place] [address] 67994- 4070 14 May, 2015 [place] [address] [id number] [place] [address] 24775- 1014 May, Bipolar disorder, in partial remission, most recent episode manic F31.73 ; Non compliance with medical treatment Z91.19 and 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 [place] [address] [place] [address] 65061- 3457 May, Type 2 diabetes mellitus with complication E11.8 and Back pain M54.9 [place] [address] [place] [address] 51199- 2785 May, Bipolar disorder, in partial remission, most recent episode manic F31.73 and 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 [place] [address] [place] [id number] [place] [address] 90790- 8737 Apr, [place] [address] [place] [id number] [place] [address] 89153- 2903 Apr, [place] [address] [place] [id number] [place] [address] 28826- 8495 10 Apr, 2015 [place] [address] [place] [address] 34558- 8197 09 Apr, 2015 Diabetes E11.9 ; Irritable bowel syndrome with diarrhea K58.0 and Lumbar radiculopathy M54.16 [place] [address] [place] [address] 99833- 7065 02 Apr, 2015 Breast screening Z12.39 [place] [address] [id number] [place] [address] 68846- 3199 02 Apr, 2015 Bipolar disorder, in partial remission, most recent episode manic F31.73 ; Non compliance with medical treatment Z91.19 and 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 [place] [address] [place] [address] 99171- 5033 Mar, Edema, unspecified type R60.9 and Type 2 diabetes mellitus with complication E11.8 [place] [address] [place] [id number] [place] [address] 82059- 4541 Mar, Bipolar disorder, in partial remission, most recent episode manic F31.73 ; Non compliance with medical treatment Z91.19 ; 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 and Extreme poverty Z59.5 [place] [address] [place] [address] 46801- 4392 14 Mar, 2015 Bipolar disorder, current episode mixed, unspecified F31.60 ; 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 ; Extreme poverty Z59.5 and Generalized anxiety disorder F41.1 [place] [id number] [place] [address] 98581- 5395 12 Mar, 2015 Bipolar disorder, in partial remission, most recent episode manic F31.73 ; 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 and Extreme poverty Z59.5 [place] [address] [place] [address] 91240- 2057 Feb, Bipolar disorder, in partial remission, most recent episode manic F31.73 ; 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 and Extreme poverty Z59.5 [place] [id number] [place] [address] 06417- 0615 11 Feb, 2015 Bipolar disorder, in partial remission, most recent episode manic F31.73 ; 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 and Extreme poverty Z59.5 [place] [address] [place] [address] 47813- 1024 Feb, [place] [address] [id number] [place] [address] 36779- 3082 Jan, Type 2 diabetes mellitus with complication E11.8 and Petechiae R23.3 [place] [address] [id number] [place] [address] 57355- 6919 Jan, Type 2 diabetes mellitus with complication E11.8 ; Edema, unspecified R60.9 ; Petechiae R23.3 and Diabetes E11.9 [place] [address] [id number] [place] [address] 02999- 7816 Jan, Bipolar disorder, in partial remission, most recent episode manic F31.73 ; 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 and Extreme poverty Z59.5 [place] [address] [id number] [place] [address] 36059- 4719 Jan, Bipolar disorder, in partial remission, most recent episode manic F31.73 ; 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 and Extreme poverty Z59.5 [place] [id number] [place] [address] 00406- 5995 Dec, Bipolar disorder, in partial remission, most recent episode manic F31.73 [place] [address] [place] [id number] [place] [address] 66738- 7707 Dec, Edema, due to unspecified malnutrition type, unspecified edema R60.9 and Essential hypertension I10 [place] [address] [id number] [place] [address] 69411- 0903 Dec, Bipolar disorder, in partial remission, most recent episode manic F31.73 [place] [address] [address] [id number] [place] [address] 58067- 3753 Nov, Bipolar I disorder, most recent episode (or current) mixed, unspecified 296.60 [facility] [id number] [place] [address] 67800- 0599 Nov, Stress incontinence, female 625.6 ; Back pain 724.5 and Leg pain 729.5 [facility] [id number] [place] [address] 97237- 5968 Nov, Generalized anxiety disorder 300.02 and Bipolar II disorder 296.89 [facility] [id number] [place] [address] 52387- 9688 Nov, Bipolar I disorder, most recent episode (or current) mixed, unspecified 296.60 [facility] [id number] [place] [address] 87042- 5389 Oct, [facility] [id number] [place] [address] 37640- 4357 Oct, [facility] [id number] [place] [address] 00911- 8859 Oct, [facility] [id number] [place] [address] 62128- 8298 Oct, Bipolar I disorder, most recent episode (or current) mixed, unspecified 296.60 [facility] [address] [id number] [address] 0810 Sep, Diabetes 250.00 [facility] [id number] [place] [address] 91717- 3611 Sep, Bipolar I disorder, most recent episode (or current) mixed, unspecified 296.60 [facility] [id number] [place] [address] 83976- 4079 Sep, [facility] [id number] [place] [address] 84432- 9452 Sep, [facility] [id number] [place] [address] 16578- 7147 Sep, Bipolar I disorder, most recent episode (or current) mixed, unspecified 296.60 [facility] [id number] [place] [address] 83445- 9316 Sep, Bipolar I disorder, most recent episode (or current) mixed, unspecified 296.60 [facility] [id number] [address]- 7695 Sep, [facility] [id number] [place] [address] 273468- 8534 Sep, Anxiety 300.00 ; Diabetes 250.00 and Hyperlipidemia 272.4 [place] [id number] [place] [address] 71016- 6752 Aug, [facility] [id number] [place] [address] 08215- 6347 Aug, [facility] [id number] [place] [address] 78207- 1843 Aug, [facility] [id number] [place] [address] 59052- 3798 Aug, Bipolar I disorder, most recent episode (or current) mixed, unspecified 296.60 [facility] [id number] [address]- 0486 Aug, Generalized anxiety disorder 300.02 and Bipolar II disorder 296.89 [facility] [id number] [place] [address] 83532- 2036 July, Bipolar I disorder, most recent episode (or current) mixed, unspecified 296.60 [facility] [id number] [address] 2917 July, Cough 786.2 [facility] [id number] [place] [address] 83545- 6273 July, Bipolar I disorder, most recent episode (or current) mixed, unspecified 296.60 [facility] [id number] [place] [address] 77608- 0234 30 Jun, 2014 Diabetes 250.00 [facility] [address] [facility] [id number] [place] [address]- 2192 14 Jun, 2014 [facility] [address] [facility] [id number] [place] [address]- 5572 13 Jun, 2014 [facility] [address] [facility] [id number] [place] [address]- 4361 24 May, 2014 [facility] [place] [facility] [address] [facility] [id number] [place] [address]- 2702 24 May, 2014 [facility] [address] [facility] [id number] [place] [address]- 7663 10 May, 2014 [facility] [address] [facility] [id number] [place] [address]- 9937 10 May, 2014 [facility] [address] [facility] [id number] [place] [address]- 3468 10 May, 2014 [facility] [place] [facility] [address] [facility] [id number] [place] [address]- 6545 10 May, 2014 [facility] [address] [id number] [place] [address]- 0261 20 Apr, 2014 [facility] [address] [facility] [id number] [place] [address]- 0182 20 Apr, 2014 [facility] [place] [facility] [address] [id number] [place] [address]- 8478 11 Apr, 2014 [facility] [place] [facility] [address] [facility] [id number] [address]- 9087 11 Apr, 2014 [facility] [place] [facility] [address] [facility] [id number] [place] [address]- 1789 10 Apr, 2014 [facility] [place] [facility] [address] [facility] [id number], [place] [address]- 3121 10 Apr, 2014 [facility] [place] [facility] [address] [id number] [address]- 8416 Apr, [facility] [place] [facility] [address] [id number] [place] [address]- 3400 Apr, [facility] [place] [facility] [address] [id number] [place] [address]- 5780 Mar, [facility] [place] [facility] [address] [id number] [place] [address]- 8296 Mar, [facility] [place] [facility] [address] [id number] [place] [address]- 3894 Mar, [facility] [place] [facility] [address] [id number] [place] [address]- 1130 Mar, [facility] [place] [facility] [address] [id number] [place] [address]- 3105 Mar, [facility] [place] [facility] [address] [id number] [place] [address]- 5434 Mar, [facility] [place] [facility] [address] [id number] [place] [address]- 2136 Mar, [facility] [place] [facility] [address] [id number] [place] [address]- 9342 Mar, [facility] [place] [facility] [address] [id number] [place] [address]- 4580 Feb, [facility] [place] [facility] [address] [id number] [place] [address]- 1402 Feb, [facility] [place] [facility] [address] [id number], [place] [address]- 8985 Feb, [facility] [place] [facility] [address] [id number] [place] [address]- 7424 Feb, [facility] [place] [facility] [address] [id number] [place] [address]- 7562 Feb, [facility] [place] [facility] [address] [id number] [place] [address]- 9390 Feb, [facility] [place] [facility] [address] [id number], [place] [address]- 8024 Feb, [facility] [place] [facility] [address] [id number] [place] [address]- 1375 Feb, [facility] [place] [facility] [address] [id number] [place] [address]- 6421 Feb, [facility] [place] [facility] [address] [facility] [id number] [place] [address]- 9735 Feb, [facility] [place] [facility] [address] [id number] [place] [address]- 3440 Jan, [facility] [place] [facility] [address] [id number] [place] [address]- 0615 Jan, [facility] [place] [facility] [address] [id number] [place] [address]- 2554 Jan, [facility] [place] [facility] [address] [facility] [id number] [place] [address]- 0195 Jan, [facility] [place] [facility] [address] [id number] [place] [address]- 7696 Jan, [facility] [place] [facility] [address] [id number] [place] [address]- 2152 Jan, [facility] [place] [facility] [address] [facility] [id number] [place] [address]- 4339 Jan, [facility] [place] [facility] [address] [id number] [place] [address]- 4441 Jan, [facility] [place] [facility] [address] [id number] [place] [address]- 6328 Jan, [facility] [place] [facility] [address] [id number] [place] [address]- 8252 Jan, [facility] [place] [facility] [address] [id number] [place] [address]- 8347 Jan, [facility] [place] [facility] [address] [facility] [id number] [place] [address]- 9524 Jan, [facility] [place] [facility] [address] [id number] [place] [address]- 8476 17 Jan, 2014 [facility] [place] [facility] [address] [id number] [place] [address]- 4164 Jan, [facility] [place] [facility] [address] [id number] [place] [address]- 2546 Jan, [facility] [place] [facility] [address] [id number] [place] [address]- 5535 Dec, [facility] [place] [facility] [address] [id number] [place] [address]- 4541 Dec, [facility] [place] [facility] [address] [id number] [place] [address]- 3088 Dec, [facility] [place] [facility] [address] [id number] [place] [address]- 5516 Dec, [facility] [place] [facility] [address] [id number] [place] [address]- 3259 Dec, [facility] [place] [facility] [address] [id number] [place] [address]- 9679 Dec, [facility] [place] [facility] [address] [id number] [place] [address]- 6412 Dec, [facility] [place] [facility] [address] [id number] [place] 4402 Dec, [facility] [place] [facility] [address] [id number] [place] [address]- 6910 25 Nov, 2013 [facility] [place] [facility] [address] [id number] [place] [address]- 1270 25 Nov, 2013 [facility] [place] [facility] [address] [id number] [place] [address]- 3986 10 Nov, 2013 [facility] [place] [facility] [address] [id number] [place] [address]- 1146 10 Nov, 2013 [facility] [place] [facility] [address] [id number] [place] [address]- 9048 08 Sep, 2013 [facility] [place] [facility] [address] [id number] [place] [address]- 4659 08 Nov, 2013 [facility] [place] [facility] [address] [id number] [place] [address]- 5563 08 Nov, 2013 [facility] [place] [facility] [address] [id number] [place] [address]- 4203 08 Nov, 2013 [facility] [place] [facility] [address] [id number] [place] [address]- 7222 08 Nov, 2013 [facility] [place] [facility] [address] [id number] [place] [address]- 7034 08 Nov, 2013 [facility] [place] [facility] [address] [id number] [place] [address]- 8688 04 Nov, 2013 [facility] [place] [facility] [address] [id number] [place] [address]- 0274 04 Nov, 2013 [facility] [place] [facility] [address] [id number] [place] [address]- 3513 03 Nov, 2013 [facility] [place] [facility] [address] [id number] [place] [address]- 4469 Nov, 2013 [facility] [place] [facility] [address] [id number] [place] [address]- 6071 Nov, 2013 [facility] [place] [facility] [address] [id number] [place] [address]- 0033 Oct, [facility] [place] [facility] [address] [id number], [place] [address]- 6223 Oct, [facility] [place] [facility] [address] [id number] [place] [address]- 0411 Oct, [facility] [place] [facility] [address] [id number] [place] [address]- 4675 Oct, [facility] [place] [facility] [address] [id number] [place] [address]- 5329 Oct, [facility] [place] [facility] [address] [id number] [place] [address]- 2471 Oct, [facility] [place] [facility] [address] [id number] [place] [address]- 5812 Oct, [facility] [place] [facility] [address] [id number] [place] [address]- 9081 Oct, [facility] [place] [facility] [address] [id number] [place] [address]- 0298 Oct, [facility] [place] [facility] [address] [id number] [place] [address]- 2405 Oct, [facility] [place] [facility] [address] [id number] [place] [address]- 2646 Oct, [facility] [place] [facility] [address] [id number] [place] [address]- 7245 Oct, [facility] [place] [facility] [address] [id number] [place] [address]- 8199 Oct, [facility] [place] [facility] [address] [id number] [place] [address]- 4692 Oct, [facility] [place] [facility] [address] [id number] [place] [address]- 8216 Sep, [facility] [place] [facility] [address] [id number] [place] [address]- 2292 Sep, [facility] [place] [facility] [address] [id number] [place] [address]- 2026 Sep, [facility] [place] [facility] [address] [id number] [place] [address]- 6136 Sep, [facility] [place] [facility] [address] [id number] [place] [address]- 4727 Sep, [facility] [place] [facility] [address] [id number] [place] [address]- 1948 Sep, [facility] [place] [facility] [address] [id number] [place] [address]- 3285 Sep, [facility] [place] [facility] [address] [id number] [place] [address]- 7752 Sep, [facility] [place] [facility] [address] [id number] [place] [address]- 2573 Aug, [facility] [place] [facility] [address] [id number] [place] [address]- 6362 Aug, [facility] [place] [facility] [address] [id number] [place] [address]- 8417 Aug, [facility] [place] [facility] [address] [id number] [place] [address]- 4713 Aug, [facility] [place] [facility] [address] [id number] [place] [address]- 7587 Aug, [facility] [place] [facility] [address] [id number] [place] [address]- 5615 Aug, [facility] [place] [facility] [address] [id number] [place] [address]- 2964 Aug, [facility] [place] [facility] [address] [id number] [place] [address]- 9360 Aug, [facility] [place] [facility] [address] [id number] [place] [address]- 1414 July, [facility] [place] [facility] [address] [id number] [place] [address]- 7051 July, [facility] [place] [facility] [address] [id number] [place] [address]- 3070 July, [facility] [place] [facility] [address] [id number] [place] [address]- 6848 July, [facility] [place] [facility] [address] [id number] [place] [address]- 8125 July, [facility] [place] [facility] [address] [id number] [place] [address]- 3421 July, [facility] [place] [facility] [address] [id number] [place] [address]- 9811 July, [facility] [place] [facility] [address] [id number] [place] [address]- 4587 July, [facility] [place] [facility] [address] [id number] [place] [address]- 9505 Jun, [facility] [place] [facility] [address] [id number] [place] [address]- 3382 Jun, [facility] [place] [facility] [address] [id number] [place] [address]- 1277 Jun, [facility] [place] [facility] [address] [id number] [place] [address]- 6522 Jun, [facility] [place] [facility] [address] [id number] [place] [address]- 0091 Jun, [facility] [place] [facility] [address] [id number] [place] [address]- 3746 Jun, [facility] [place] [facility] [address] [id number] [place] [address]- 1100 Jun, [facility] [place] [facility] [address] [id number] [place] [address]- 2675 Jun, [facility] [place] [facility] [address] [id number] [place] [address]- 2234 Jun, [facility] [place] [facility] [address] [id number] [place] [address]- 1430 Jun, [facility] [place] [facility] [address] [id number] [place] [address]- 3391 Jun, [facility] [place] [facility] [address] [id number] [place] [address]- 8775 Jun, [facility] [place] [facility] [address] [id number] [place] [address]- 3622 May, [facility] [place] [facility] [address] [id number] [place] [address]- 1804 May, [facility] [place] [facility] [address] [id number] [place] [address]- 0744 26 May, 2013 [facility] [address] [id number] [place] [address]- 9389 26 May, 2013 [facility] [place] [facility] [address] [id number] [place] [address]- 8066 13 May, 2013 [facility] [place] [facility] [address] [id number] [place] [address]- 1556 13 May, 2013 [facility] [place] [facility] [address] [id number] [place] [address]- 6256 12 May, 2013 [facility] [place] [facility] [address] [id number] [place] [address]- 9433 12 May, 2013 [facility] [place] [facility] [address] [id number] [place] [address]- 4016 11 May, 2013 [facility] [place] [facility] [address] [id number] [place] [address]- 6154 11 May, 2013 [facility] [place] [facility] [address] [id number] [place] [address]- 3893 11 May, 2013 [facility] [place] [facility] [address] [id number] [place] [address]- 9126 11 May, 2013 [facility] [place] [facility] [address] [id number] [place] [address]- 7341 10 May, 2013 [facility] [place] [facility] [address] [id number] [place] [address]- 0411 May, [facility] [place] [facility] [address] [id number] [place] [address]- 0318 Apr, [facility] [place] [facility] [address] [id number] [place] [address]- 6716 Apr, [facility] [place] [facility] [address] [id number] [place]256 Apr, [facility] [place] [facility] [address] [id number] [place] [address]- 5567 Apr, [facility] [place] [facility] [address] [id number] [place] [address]- 2600 Apr, [facility] [place] [facility] [address] [id number] [place] [address]- 1086 Apr, [facility] [place] [facility] [address] [id number] [place] [address]- 1174 Mar, [facility] [place] [facility] [address] [id number] [place] [address]- 9382 Mar, [facility] [place] [facility] [address] [id number] [place] [address]- 6740 Mar, [facility] [place] [facility] [address] [id number] [place] [address]- 7308 Mar, [facility] [place] [facility] [address] [id number] [place] [address]- 8144 Mar, [facility] [place] [facility] [address] [id number] [place] [address]- 8064 Mar, [facility] [place] [facility] [address] [id number] [place] [address]- 6093 Mar, [facility] [place] [facility] [address] [id number] [place] [address]- 2894 Mar, [facility] [place] [facility] [address] [id number], [place] [address]- 6192 Mar, [facility] [place] [facility] [address] [id number], [place] [address]- 8478 Mar, [facility] [place] [facility] [address] [id number] [place] [address]- 8719 Mar, [facility] [place] [facility] [address] [id number] [place] [address]- 0899 Mar, [facility] [place] [facility] [address] [id number] [place] [address]- 1640 Mar, [facility] [place] [facility] [address] [id number] [place] [address]- 2395 Mar, [facility] [address] [id number] [place] [address]- 2914 Feb, [facility] [address] [id number] [place] [address]236 Feb, [facility] [address] [id number] [place] [address] Feb, [facility] [place] [facility] [address] [id number] [place] [address] Feb, [facility] [address] [id number] [place] [address] Feb, [facility] [address] [id number] [place] [address] Feb, [facility] [address] [id number] [place] [address] Feb, [facility] [address] [id number] [place] [address] Feb, [facility] [address] [id number] [place] [address] Feb, [facility] [address] [facility] [id number] [place] [address] Feb, [facility] [place] [facility] [address] [id number] [place] [address] Feb, [facility] [place] [facility] [address] [id number] [place] [address] Feb, [facility] [place] [facility] [address] [id number] [place] [address] Feb, [facility] [place] [facility] [address] [id number] [place] [address] Feb, [facility] [place] [facility] [address] [id number] [place] [address] Feb, [facility] [place] [facility] [address] [id number] [place] [address] 05 Feb, 2012 [facility] [place] [facility] [address] [id number] [place] [address] 24 Dec, 2012 [facility] [place] [facility] [address] [id number] [place] [address]37 24 Dec, 2012 [facility] [place] [facility] [address] [id number] [place] [address] 16 Dec, 2012 [facility] [place] [facility] [address] [id number] [place] [address]80 16 Dec, 2012 [facility] [place] [facility] [address] [id number] [place] [address] 16 Dec, 2012 [facility] [address] [id number] [place] [address] 16 Dec, 2012 [facility] [place] [facility] [address] [id number] [place] [address]32 14 Dec, 2012 [facility] [place] [facility] [address] [id number] [place] [address] 14 Dec, 2012 [facility] [place] [facility] [address] [id number], [place] [address] 10 Dec, 2012 [facility] [place] [facility] [address] [id number] [place] [address]- 4469 10 Dec, 2012 [facility] [place] [facility] [address] [id number], [place] [address] 10 Dec, 2012 [facility] [place] [facility] [address] [id number] [place] [address]4 10 Dec, 2012 [facility] [place] [facility] [address] [id number] [place] [address] 03 Dec, 2012 [facility] [place] [facility] [address] [id number] [address] 25 Nov, 2012 [facility] [place] [facility] [address] [id number], [place] [address] 20 Nov, 2012 [facility] [place] [facility] [address] [id number] [place] [address] 18 Nov, 2012 [facility] [place] [facility] [address] [id number] [place] [address] 16 Nov, 2012 [facility] [place] [facility] [address] [id number] [place] [address]397 12 Nov, 2012 [facility] [place] [facility] [address] [id number] [place] [address] 11 Nov, 2012 [facility] [place] [facility] [address] [id number] [place] [address] 4024 05 Nov, 2012 [facility] [place] [facility] [address] [id number] [place] [address] 2846 15 Oct, 2012 [facility] [place] [facility] [address] [id number] [place] [address] Oct, [facility] [place] [facility] [address] [id number] [place] [address] 24 Sep, 2012 [facility] [place] [facility] [address] [id number] [place] [address] 2009 Sep, [facility] [place] [facility] [address] [id number] [place] [address] Sep, [facility] [place] [facility] [address] [id number] [place] [address]073 17 Sep, 2012 [facility] [place] [facility] [address] [id number] [place] [address]804 15 Sep, 2012 [facility] [place] [facility] [address] [id number] [place] [address]99 Sep, [facility] [place] [facility] [address] [id number] [place] [address] 27[address] Sep, [facility] [place] [facility] [address] [id number] [place] [address] 97[address] Aug, [facility] [place] [facility] [address] [id number] [place] [address] 9896 18 Aug, 2012 [facility] [address] [id number] [place] [address]116 16 Aug, 2012 [facility] [address] [id number] [place] [address] 2546 13 Aug, 2012 [facility] [address] [id number] [place] [address]- [address]376 11 Aug, 2012 [facility] [address] [id number] [place] [address]- 64[address] Aug, [facility] [address] [id number] [place] [address] Aug, [facility] [address] [id number] [place] [address] 8996 Aug, [facility] [address] [id number] [place] [address] 4[address] July, [facility] [address] [id number] [place] [address]60 July, [facility] [address] [id number] [place] [address]- 04[address] July, [facility] [address] [id number] [place] [id number] July, [facility] [address] [id number] [place] [address] 2016 July, [facility] [address] [id number] [place] [address] Jun, [facility] [address] [id number] [place] [address]- [address]46 May, [facility] [place] [facility] [address] [id number] [place] [address]- [address]46 14 May, 2012 [facility] [address] [id number] [place] [address]- 6436 May, [facility] [address] [id number] [place] [address]- 25[address] Apr, [facility] [address] [id number] [place] [address]- [address] Apr, [facility] [address] [id number] [place] [address] Apr, [facility] [address] [id number] [place] [address] Mar, [facility] [address] [id number] [place] [address] 34[address] Mar, [facility] [address] [id number] [place] [address] 28[address] Mar, [facility] [address] [id number] [place] [address] Mar, [facility] [address] [id number] [place] [address] Mar, [facility] [address] [id number] [place] [address] Mar, [facility] [address] [id number] [place] [address] 1671 Mar, [facility] [address] [id number] [place] [address] Feb, [facility] [place] [facility] [address] [id number], [place] [address] 31 Feb, 2012 [facility] [place] [facility] [address] [id number] [place] [address] 1517 18 Feb, 2012 [facility] [place] [facility] [address] [id number] [place] [address]706 18 Feb, 2012 [facility] [place] [facility] [address] [id number] [place] [address] 0676 17 Feb, 2012 [facility] [place] [facility] [address] [id number] [place] [address] 2772 17 Feb, 2012 [facility] [place] [facility] [address] [id number] [place] [address] Feb, [facility] [place] [facility] [address] [id number] [place] [address] 74[address] Feb, [facility] [place] [facility] [address] [id number] [place] [address] Jan, [facility] [place] [facility] [address] [id number] [place] [address] 8247 Jan, [facility] [place] [facility] [address] [id number] [place] [address] Jan, [facility] [place] [facility] [address] [id number] [place] [address] Jan, [facility] [place] [facility] [address] [id number] [place] [address] 2269 Jan, [facility] [place] [facility] [address] [id number] [place] [address] 56[address] Jan, [facility] [place] [facility] [address] [id number] [place] [address] 4798 Jan, [facility] [place] [facility] [address] [facility] [id number] [place] [address] 1776 Jan, [facility] [place] [facility] [address] [id number] [place] [address] 2099 Jan, [facility] [place] [facility] [address] [id number], [place] [address] Jan, [facility] [place] [facility] [address] [id number] [place] [address] 5116 Jan, [facility] [place] [facility] [address] [id number] [place] [address] 0177 Jan, [facility] [place] [facility] [address] [facility] [id number], [place] [address] Jan, [facility] [place] [facility] [address] [id number] [place] [address] 286[address] Jan, [facility] [place] [facility] [address] [id number] [place] [address] 7683 Jan, [facility] [place] [facility] [address] [id number] [place] [address] 94[address] Jan, [facility] [place] [facility] [address] [id number] [place] [address]45 Dec, [facility] [place] [facility] [address] [id number] [place] [address] 6973 Dec, [facility] [place] [facility] [address] [id number] [place] [address] 30[address] Dec, [facility] [place] [facility] [address] [id number] [place] [address] 6070 Dec, [facility] [place] [facility] [address] [id number] [place] [address] 5114 Dec, [facility] [place] [facility] [address] [id number] [place] [address] 8715 Dec, [facility] [place] [facility] [address] [id number] [place] [address] 6740 Dec, [facility] [place] [facility] [address] [id number] [place] [address] 9103 Dec, [facility] [place] [facility] [address] [id number] [place] [address]60 08 Dec, 2011 [facility] [place] [facility] [address] [id number] [place] [address]290 05 Dec, 2011 [facility] [place] [facility] [address] [id number] [place] [address] 9169 18 Sep2011 [facility] [place] [facility] [address] [id number] [place] [address] 4649 13 Sep2011 [facility] [place] [facility] [address] [id number] [place] [address] Oct, [facility] [place] [facility] [address] [id number] [place] [address]235 Oct, [facility] [place] [facility] [address] [id number] [place] [address] Oct, [facility] [place] [facility] [address] [id number] [place] [address] 5472 Oct, [facility] [place] [facility] [address] [id number] [place] [address] 9450 Oct, [facility] [place] [facility] [address] [id number] [place] [address] 4451 Oct, [facility] [place] [facility] [address] [id number] [place] [address] 8[address] Oct, [facility] [place] [facility] [address] [id number] [place] [address] 3620 Sep, [facility] [place] [facility] [address] [id number] [place] [address] 2[address] Aug, [facility] [place] [facility] [address] [id number] [place] [address] 8497 Aug, [facility] [place] [facility] [address] [id number] [place] [address] 3400 Aug, [facility] [place] [facility] [address] [id number] [place] [address] 9680 Aug, [facility] [place] [facility] [address] [id number] [place] [address] 3924 Aug, [facility] [place] [facility] [address] [id number] [place] [address] 9737 July, [facility] [place] [facility] [address] [id number] [place] [address] 5436 July, [facility] [place] [facility] [address] [id number] [place] [address] 1561 July, [facility] [place] [facility] [address] [id number] [place] [address] 3596 19 Jun, 2011 [facility] [address] [id number] [place] [address]- 7616 05 Jun, 2011 [facility] [address] [id number] [place] [address] 8876 04 Jun, 2011 [facility] [address] [id number] [place] [address] 4946 Jun, [facility] [address] [id number] [place] [address]- 0733 30 May, 2011 [facility] [address] [id number] [place] [address]- 8524 30 May, 2011 [facility] [address] [id number] [place] [address]- 4186 29 May, 2011 [facility] [address] [id number] [place] [address] 9016 28 May, 2011 [facility] [address] [id number] [place] [address]- 2249 23 May, 2011 [facility] [address] [id number] [place] [address]- 8850 22 May, 2011 [facility] [address] [id number] [place] [address]- 1837 May, [facility] [address] [id number] [place] [address]- 1345 May, [facility] [address] [id number] [place] [address]- 5361 08 May, 2011 [facility] [place] [facility] [address] [id number] [place] [address]- 5475 05 May, 2011 [facility] [place] [facility] [address] [id number] [place] [address]- 3606 02 May, 2011 [facility] [address] [id number] [place] [address]- 1047 May, [facility] [place] [facility] [address] [id number] [place] [address]- 6642 Mar, [facility] [place] [facility] [address] [id number] [place] [address]- 2853 Mar, [facility] [place] [facility] [address] [id number] [place] [address] 28 Feb, 2011 [facility] [place] [facility] [address] [id number] [place] [address]- 6945 Feb, [facility] [place] [facility] [address] [id number] [place] [address]- 1046 Feb, [facility] [place] [facility] [address] [id number] [place] [address]- 1170 15 Feb, 2011 [facility] [place] [facility] [address] [id number] [place] [address]- 0440 Feb, [facility] [place] [facility] [address] [id number] [place] [address]- 1653 Feb, [facility] [place] [facility] [address] [id number] [place] [address]- 2317 Feb, [facility] [place] [facility] [address] [id number] [place] [address]- 4516 Jan, [facility] [place] [facility] [address] [id number] [place] [address]- 5348 Jan, [facility] [place] [facility] [address] [id number] [place] [address]- 4765 Jan, [facility] [place] [facility] [address] [id number] [place] [address]- 5225 17 Jan, 2011 [facility] [place] [facility] [address] [id number] [place] [address]- 2134 Jan, [facility] [place] [facility] [address] [id number] [place] [address]- 7187 Jan, [facility] [place] [facility] [address] [id number], [place] [address] 9300 Dec, [facility] [place] [facility] [address] [id number] [place] [address]- 2309 27 Dec, 2010 [facility] [place] [facility] [address] [id number] [place] [address] Dec, [facility] [place] [facility] [address] [id number] [place] [address]- 5186 July, [facility] [place] [facility] [address] [id number] [place] [address]- 7910 July, [facility] [place] [facility] [address] [id number] [place] [address]- 3260 Feb, [facility] [place] [facility] [address] [id number] [place] [address]- 3694 Jan, [facility] [place] [facility] [address] [id number] [place] [address]- 9905 Dec, [facility] [place] [facility] [address] [id number] [place] [address]- 4255 Dec, [facility] [place] [facility] [address] [id number] [place] [address]- 8490 Sep, [facility] [place] [facility] [address] [id number] [place] [address]- 1530 Aug, [facility] [place] [facility] [address] [id number] [place] [address]- 3205 Jun, [facility] [place] [facility] [address] [id number] [place] [address]- 2832 Jun, [facility] [place] [facility] [address] [id number] [place] [address]- 2595 Jan, [facility] [place] [facility] [address] [id number] [place] [address]- 7221 Jan, [facility] [place] [facility] [address] [id number] [place] [address]- 2793 05 Jan, 2009 [facility] [place] [facility] [id number], [place] [address] Jan, [facility] [id number] [address] 5[address] Dec, [facility] [id number] [address]- 2546 Dec, [facility] [id number] [place] [address]- 4910 Dec, [facility] [id number], [place] [address]- 254 Nov, [facility] [id number] [place] [address]- 8108 July, [facility] [id number] [place] [address]- 9068 May, [facility] [id number] [place] [address]- 5318 Apr, [facility] [id number], [place] [address]- 7871 Feb, [facility] [id number] [address]- 6241 Dec, IMMUNIZATIONS No Known Immunizations SOCIAL HISTORY Never Assessed REASON FOR VISIT ER f/u, PT reports she went to the [facility] ER (unsure of the date) due to pain on her right side of her mouth from either a filling or possible gum irritation. PT was given antibitoics and is almost done with juan m -Shashi [facility] PLAN OF CARE Activity Details Follow Up Routine appointments Reason: VITAL SIGNS Height 64 in 2017-09-16 Weight 187.8 lbs 2017-09-16 Temperature 98.0 degrees Fahrenheit 2017-09-16 Heart Rate 85 bpm 2017-09-16 Respiratory Rate 20 2017-09-16 Oximetry on room air:97 % 2017-09-16 BMI 32.23 kg/m2 2017-09-16 Blood pressure systolic 118 mmHg 2017-09-16 Blood pressure diastolic 80 mmHg 2017-09-16 MEDICATIONS Medication Instructions Dosage Frequency Start Date End Date Duration Status Aspirin Adult Low Strength 81 MG Orally Once a day 1 tablet 24h Active NovoLog Mix 70/30 Flexpen (70-30) 100 UNIT/ML Subcutaneous 2 times a day Inject 110 units 12h 90 days Active Actos 45 MG Orally Once a day #60 samples 1 tablet Apr, Active Toprol XL 25 mg take 1 tablet by Oral route 1 time per day take at hs 10 May, 2013 Active Victoza 18 MG/3ML Subcutaneous Once a day inject 1.8 ml 24h 90 days Active Celexa 40 MG Orally Once a day 1 tablet 24h May, 30 days Active Augmentin Orally every 12 hrs 1 tablet 12h Active NovoFine 32G X 6 MM subcutaneously 3 times a day as directed for use with Victoza and Novolog Pens 8h July, 90 days Active Farxiga 10 MG Orally Once a day 1 tablet 24h Apr, 90 days Active Simvastatin 80 MG Orally Once a day 1 tablet in the evening 24h Sep, 90 days Active Ativan 0.5 MG Orally Once a day, no early refills 1 tablet as needed Sep, Active Test strips Contour test strips 2 times a day test blood sugar 12h Aug, Active Amaryl 4 MG Orally Once a day in AM 1 tablet with breakfast or the first main meal of the day Sep, 30 day(s) Active Tizanidine HCl 4 MG Orally Once a day 1 tablet as needed at bedtime 24h July, 30 days Active Lamictal 200 MG Orally every evening 1 tablet May, 30 days Active RESULTS Name Result Date Reference Range A1C (IN HOUSE) 2017-09-16 A1C IN HOUSE 12.6 4.3 - 5.6 % Previous A1c 11.5 Lot [id number] Exp date 05/2019 PROCEDURES Procedure Date Ordered Result Body Site GLYCATED HEMOGLOBIN TEST September 16, 2017 INSTRUCTIONS MEDICATIONS ADMINISTERED No Known [...]
--- OUTSIDE RECORDS SUMMARY | 2018-06-14 14:33 | XMS REPORT ---
Author Author ARIAN US Organization [facility] Address [address] [place] [address] Care Team Providers Care Kineseologist Name Role Phone ARIAN US Unavailable PROBLEMS Type Condition ICD9-CM Code OIG03-GS Code Onset Dates Condition Status SNOMED Code Problem Lumbar radiculopathy M54.16 Active 545000973 Problem 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 Active 918642557 Problem Bipolar 1 disorder F31.9 Active 067369943 Problem Type 2 diabetes mellitus with hyperglycemia E11.65 Active 24625722 Problem roasterman current use of insulin Z79.4 Active 385577553 Problem Hyperlipidemia, unspecified E78.5 Active 48403659 Problem Type 2 diabetes mellitus with complication E11.8 Active 938123271 Problem New daily persistent headache G44.52 Active 396423265 Problem Acute bilateral low back pain with right-sided sciatica M54.41 Active 455950743 Problem Obesity, unspecified 278.00 Active 543527252 Problem Hyperlipidemia 272.4 Active 69176465 Problem Post laminectomy syndrome M96.1 Active 99136714 Problem Eye exam normal Z01.00 Active 873367427 Problem 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 Active 44951747 Problem Non compliance with medical treatment Z91.19 Active 7935130 Problem Bipolar disorder, in partial remission, most recent episode manic F31.73 Active 69211599 Problem Diabetes E11.9 Active 607457544 Problem Extreme poverty Z59.5 Active 92865231 Problem Irritable bowel syndrome with diarrhea K58.0 Active 709517242 ALLERGIES No Information ENCOUNTERS Encounter Location Date Diagnosis [facility] [address], [place] [address] Nov, [facility] [address], [place] [address] Nov, [facility] [id number] [place] [address] 14237- 3201 Nov, [facility] [id number] [place] [address] 54259- 1142 Nov, [facility] [id number] [place] [address] 04579- 5196 Oct, Bipolar 1 disorder F31.9 ; 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 and Extreme poverty Z59.5 [facility] [address] 97117- 8941 Oct, Type 2 diabetes mellitus with hyperglycemia E11.65 ; 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 Z79.4 and Other acute gastritis without hemorrhage K29.00 [facility] [id number] [place] [address] 54979- 1764 Oct, Bipolar 1 disorder F31.9 ; 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 and Extreme poverty Z59.5 [facility] [id number] [place] [address] 06438- 3295 Sep, Diarrhea, unspecified R19.7 and Vomiting, unspecified R11.10 [facility] [id number] [place] [address] 34509- 9090 Aug, Type 2 diabetes mellitus with complication E11.8 [facility] [id number] [place] [address] 51119- 6723 Aug, [facility] [id number] [place] [address] 86418- 0417 Aug, Bipolar 1 disorder F31.9 ; 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 and Extreme poverty Z59.5 [facility] [id number] [place] [address] 46958- 5713 Aug, 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 and Bipolar disorder, in partial remission, most recent episode manic F31.73 [facility] [id number] [place] [address] 90649- 6381 Aug, Bipolar 1 disorder F31.9 [facility] [address], [place] [address] Aug, [facility] [id number] [place] [address] 73348- 7035 Aug, [facility] [id number] [place] [address] 33798- 2911 Aug, Bipolar 1 disorder F31.9 ; 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 and Extreme poverty Z59.5 [facility] [id number] [place] [address] 43462- 1527 July, Type 2 diabetes mellitus with complication E11.8 [facility] [id number] [place] [address] 65675- 0413 July, Bipolar 1 disorder F31.9 ; 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 and Extreme poverty Z59.5 [facility] [id number] [place] [address] 02951- 7243 Jun, Bipolar 1 disorder F31.9 ; 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 and Extreme poverty Z59.5 [facility] [address] [place] [address] 49286- 3208 Jun, Bipolar 1 disorder F31.9 ; 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 and Extreme poverty Z59.5 [facility] [id number] [place] [address] 95395- 3560 Jun, Bipolar 1 disorder F31.9 ; 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 and Extreme poverty Z59.5 [facility] [place] [address] [place] [address] 74941- 6225 May, Urinary tract infection without hematuria, site unspecified N39.0 [facility] [id number] [place] [address] 38134- 0767 May, Bipolar 1 disorder F31.9 ; 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 and Extreme poverty Z59.5 [facility] [place] [address] [place] [address] 69778- 5971 Apr, Diabetes E11.9 and Breast cancer screening Z12.31 [facility] [id number] [place] [address] 17628- 8939 Apr, Bipolar 1 disorder F31.9 and 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 [facility] [id number] [place] [address] 07101- 9137 Mar, Bipolar 1 disorder F31.9 ; 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 and Extreme poverty Z59.5 [facility] [address] 99515- 6230 Mar, New daily persistent headache G44.52 ; Leg pain 729.5 and History of carpal tunnel release Z98.890 [facility] [id number] [place] [address] 91989- 0173 Mar, Hyperlipidemia, unspecified E78.5 [facility] [address] 27245- 3373 Mar, Bipolar 1 disorder F31.9 ; 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 and Extreme poverty Z59.5 [facility] [address] 28838- 2832 Feb, Bipolar 1 disorder F31.9 ; 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 and Extreme poverty Z59.5 [facility] [id number] [place] [address] 63645- 6098 Feb, Diabetes E11.9 [facility] [address] 06682- 6669 Feb, Viral syndrome B34.[address] 24498- 7961 Jan, Other viral agents as the cause of diseases classified elsewhere B97.89 and Acute upper respiratory infection, unspecified J06.9 [facility] [id number] [place] [address] 18138- 3098 Jan, Bipolar 1 disorder F31.9 and 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 [facility] [id number] [place] [address] 42743- 3518 Jan, Bipolar 1 disorder F31.9 ; 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 and Extreme poverty Z59.5 [place] [id number] [place] [address] 04496- 1770 Dec, Diabetes E11.9 [facility] [address] 130518- 3755 Dec, Diabetes E11.9 and Encounter for immunization Z23 [facility] [id number] [place] [address] 58351- 2317 Dec, Bipolar 1 disorder F31.9 ; 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 and Extreme poverty Z59.5 [facility] [id number] [place] [address] 84231- 3381 Dec, Back pain M54.9 [facility] [id number] [place] [address] 02976- 2303 07 Nov, 2016 [facility] [id number] [place] [address] 49319- 1691 Nov, Bipolar 1 disorder F31.9 ; 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 and Extreme poverty Z59.5 [facility] [id number] [place] [address] 10795- 2468 Nov, Bipolar 1 disorder F31.9 ; 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 and Extreme poverty Z59.5 [facility] [address] [place] [address] 26923- 6453 Oct, 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 and Bipolar 1 disorder F31.9 [facility] [id number] [place] [address] 68260- 0861 Oct, Bipolar 1 disorder F31.9 ; 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 and Extreme poverty Z59.5 [facility] [id number] [place] [address] 11710- 1778 Oct, Back pain M54.9 [facility] [id number] [place] [address] 79710- 5766 Oct, 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 and Type 2 diabetes mellitus with complication E11.8 [facility] [id number] [place] [address] 92059- 7033 Sep, Bipolar 1 disorder F31.9 ; 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 and Extreme poverty Z59.5 [facility] [id number] [place] [address] 11348- 8358 Sep, 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 and Bipolar 1 disorder F31.9 [facility] [id number] [place] [address] 74120- 0009 Sep, Bipolar 1 disorder F31.9 ; 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 and Extreme poverty Z59.5 [facility] [id number] [place] [address] 15674- 9422 Aug, Diabetes E11.9 ; Hyperlipidemia, unspecified E78.5 and Lumbar radiculopathy M54.16 [facility] [id number] [place] [address] 60655- 4971 Aug, Bipolar 1 disorder F31.9 ; 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 and Extreme poverty Z59.5 [facility] [id number] [place] [address] 32016- 5106 Aug, [facility] [id number] [place] [address] 77423- 9855 Aug, [facility] [id number] [place] [address] 35054- 5095 Aug, [facility] [id number] [place] [address] 38093- 3248 July, [facility] [id number] [place] [address] 55798- 6476 July, Acute bilateral low back pain with right-sided sciatica M54.41 [facility] [address], [place] [address]- 2885 July, Bipolar 1 disorder F31.9 ; 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 and Extreme poverty Z59.5 [facility] [id number] [place] [address] 13401- 4789 July, Back pain M54.9 and Diabetes E11.9 [facility] [id number] [place] [address] 15333- 3736 Jun, Bipolar 1 disorder F31.9 ; 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 and Extreme poverty Z59.5 [facility] [id number] [place] [address] 35796- 1188 Jun, Bipolar 1 disorder F31.9 ; 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 and Extreme poverty Z59.5 [facility] [id number] [place] [address] 20067- 6882 May, Visit for pelvic exam Z01.419 ; Acute vaginitis N76.0 and Diabetes E11.9 [facility] [id number] [place] [address] 89346- 1834 May, Bipolar 1 disorder F31.9 ; 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 and Extreme poverty Z59.5 [facility] [address] [place] [address] 90399- 6846 May, [facility] [id number] [place] [address] 95618- 7866 May, [facility] [id number] [place] [address] 55335- 5159 May, Bipolar 1 disorder F31.9 ; 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 and Extreme poverty Z59.5 [place] [id number] [place] [address] 04146- 5847 May, Hyperlipidemia, unspecified E78.5 [facility] [address] [place] [address] 63279- 4587 Apr, Breast cancer screening Z12.39 [facility] [id number] [place] [address] 19628- 5731 Mar, [facility] [id number] [place] [address] 29797- 3632 Mar, Bipolar disorder, current episode mixed, unspecified F31.60 [facility] [id number] [place] [address] 78416- 6733 Mar, Bipolar 1 disorder F31.9 ; 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 and Extreme poverty Z59.5 [facility] [id number] [place] [address] 14929- 3922 Feb, Acute nasopharyngitis J00 [place] [address] 05669- 1531 27 Feb, 2016 Dental examination Z01.20 [facility] [address] 03822- 0668 21 Feb, 2016 Dental cavities K02.9 and Chronic periodontitis, unspecified K05.30 [facility] [id number] [place] [address] 88834- 9162 13 Feb, 2016 Low back pain M54.5 and Extreme poverty Z59.5 [facility] [id number] [place] [address] 21178- 5130 Feb, [facility] [id number] [place] [address] 90631- 7186 05 Feb, 2016 Routine gynecological examination V72.31 ; Breast cancer screening Z12.39 and Herpes simplex type 1 infection B00.9 [facility] [id number] [place] [address] 19673- 6719 Feb, Diabetes E11.9 [facility] [id number] [place] [address] 05224- 0776 Feb, Encounter for dental examination and cleaning without abnormal findings Z01.20 [place] [address] 06136- 6301 Jan, Hyperlipidemia, unspecified E78.5 [facility] [id number] [place] [address] 82554- 8456 Jan, Bipolar 1 disorder F31.9 ; 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 and Extreme poverty Z59.5 [facility] [id number] [place] [address] 57912- 1863 Jan, Diabetes E11.9 [facility] [address] 525982- 8729 17 Jan, 2016 Diabetes E11.9 [facility] [id number] [place] [address] 30735- 5821 14 Dec, 2015 Bipolar 1 disorder F31.9 ; 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 and Extreme poverty Z59.5 [facility] [id number] [place] [address] 00762- 8060 13 Dec, 2015 Bipolar disorder, current episode mixed, unspecified F31.60 and 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 [facility] [id number] [place] [address] 61967- 8478 16 Nov, 2015 Bipolar 1 disorder F31.9 ; 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 ; Extreme poverty Z59.5 and Non compliance with medical treatment Z91.19 [facility] [id number] [place] [address] 09684- 3490 Oct, [facility] [id number] [place] [address] 51168- 0045 Oct, Dental caries K02.9 [facility] [id number] [place] [address] 39286- 4913 Oct, Low back pain M54.5 and Other chronic pain G89.29 [facility] [id number] [place] [address] 23205- 6923 Oct, Bipolar 1 disorder F31.9 ; 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 ; Extreme poverty Z59.5 and Non compliance with medical treatment Z91.19 [place] [address], [place] [address]- 5661 Oct, [facility] [id number] [place] [address] 51584- 1097 Oct, [facility] [id number] [place] [address] 70717- 5132 Oct, Dental examination Z01.20 [facility] [id number] [place] [address] 14539- 2318 Oct, Bipolar 1 disorder F31.9 ; 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 ; Extreme poverty Z59.5 and Non compliance with medical treatment Z91.19 [facility] [id number] [place] [address] 24712- 9232 Oct, [facility] [id number] [place] [address] 55743- 0306 Sep, Type 2 diabetes mellitus with complication E11.8 [facility] [id number] [place] [address] 96503- 7296 Sep, Bipolar disorder, current episode mixed, unspecified F31.60 [facility] [id number] [place] [address] 18832- 3653 Sep, Bipolar disorder, current episode mixed, unspecified F31.60 [facility] [address] [place] [address] 65779- 2422 Sep, Bipolar disorder, in partial remission, most recent episode manic F31.73 ; 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 ; Extreme poverty Z59.5 and Non compliance with medical treatment Z91.19 [facility] [address] [place] [address] 34400- 8749 Aug, Bipolar disorder, in partial remission, most recent episode manic F31.73 ; 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 ; Extreme poverty Z59.5 and Non compliance with medical treatment Z91.19 [facility] [address] [place] [address] 98597- 0413 Aug, Bipolar disorder, in partial remission, most recent episode manic F31.73 ; 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 ; Extreme poverty Z59.5 and Non compliance with medical treatment Z91.19 [place] [place] [address] [place] [address] 41850- 5625 Aug, [facility] [id number] [place] [address] 79493- 0101 July, Bipolar disorder, in partial remission, most recent episode manic F31.73 ; 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 ; Extreme poverty Z59.5 and Non compliance with medical treatment Z91.19 [facility] [id number] [place] [address] 61890- 2362 July, Bipolar disorder, current episode mixed, unspecified F31.60 [facility] [id number] [place] [address] 16720- 5434 July, Bipolar disorder, in partial remission, most recent episode manic F31.73 ; 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 ; Extreme poverty Z59.5 and Non compliance with medical treatment Z91.19 [facility] [id number] [place] [address] 09671- 1768 July, roasterman current 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 Z79.891 and Chronic pain G89.29 [facility] [id number] [place] [address] 84054- 9671 Jun, 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 and Bipolar 1 disorder F31.9 [place] [address] [place] [address] 86882- 6194 Jun, [facility] [id number] [place] [address] 45076- 6078 Jun, [facility] [id number] [place] [address] 59319- 5228 Jun, [facility] [id number] [place] [address] 96043- 2983 Jun, Bipolar disorder, in partial remission, most recent episode manic F31.73 ; 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 and Non compliance with medical treatment Z91.19 [facility] [address] [place] [address] 42392- 9063 May, Bipolar disorder, in partial remission, most recent episode manic F31.73 ; 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73 ; Non compliance with medical treatment Z91.19 and 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 [place] [address] [place] [address] 39847- 7236 May, Type 2 diabetes mellitus with complication E11.8 and Back pain M54.9 [facility] [address] [place] [address] 49458- 4690 May, Bipolar disorder, in partial remission, most recent episode manic F31.73 and 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 [place] [address] [place] [address] 81775- 9698 Apr, [facility] [id number] [place] [address] 37097- 7455 Apr, [facility] [address] [place] [address] 33663- 8359 Apr, [facility] [id number] [place] [address] 46300- 1604 09 Apr, 2015 Diabetes E11.9 ; Irritable bowel syndrome with diarrhea K58.0 and Lumbar radiculopathy M54.16 [facility] [id number] [place] [address] 91929- 9964 02 Apr, 2015 Breast screening Z12.[address] 56919- 5375 02 Apr, 2015 Bipolar disorder, in partial remission, most recent episode manic F31.73 ; Non compliance with medical treatment Z91.19 and 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 [place] [address]3441- 9826 Mar, Edema, unspecified type R60.9 and Type 2 diabetes mellitus with complication E11.[address] 13825- 7152 Mar, Bipolar disorder, in partial remission, most recent episode manic F31.73 ; Non compliance with medical treatment Z91.19 ; 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 and Extreme poverty Z59.5 [place] [id number] [place] [address] 73339- 7533 Mar, Bipolar disorder, current episode mixed, unspecified F31.60 ; 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 ; Extreme poverty Z59.5 and Generalized anxiety disorder F41.1 [place] [id number] [place] [address] 49106- 8875 Mar, Bipolar disorder, in partial remission, most recent episode manic F31.73 ; 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 and Extreme poverty Z59.5 [place] [id number] [place] [address] 15190- 0150 Feb, Bipolar disorder, in partial remission, most recent episode manic F31.73 ; 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 and Extreme poverty Z59.[address] 06786- 7250 Feb, Bipolar disorder, in partial remission, most recent episode manic F31.73 ; 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 and Extreme poverty Z59.5 [place] [id number] [place] [address] 95763- 2000 Feb, [facility] [id number] [place] [address] 84801- 4859 Jan, Type 2 diabetes mellitus with complication E11.8 and Petechiae R23.3 [place] [address] 53184- 5621 Jan, Type 2 diabetes mellitus with complication E11.8 ; Edema, unspecified R60.9 ; Petechiae R23.3 and Diabetes E11.9 [facility] [facility] [id number] [place] [address] 61881- 9344 Jan, Bipolar disorder, in partial remission, most recent episode manic F31.73 ; 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 and Extreme poverty Z59.5 [place] [id number] [place] [address] 59402- 6138 Jan, Bipolar disorder, in partial remission, most recent episode manic F31.73 ; 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 and Extreme poverty Z59.5 [place] [id number] [place] [address] 78457- 8474 Dec, Bipolar disorder, in partial remission, most recent episode manic F31.73 [place] [id number] [place] [address] 18091- 0918 Dec, Edema, due to unspecified malnutrition type, unspecified edema R60.9 and Essential hypertension I10 [place] [address] [place] 545865- 6816 Dec, Bipolar disorder, in partial remission, most recent episode manic F31.73 [place] [id number] [place] [address] 33890- 2490 Nov, Bipolar I disorder, most recent episode (or current) mixed, unspecified 296.60 [facility] [address] [address]- 7298 Nov, Stress incontinence, female 625.6 ; Back pain 724.5 and Leg pain 729.5 [facility] [address] [place] [address]- 3006 Nov, Generalized anxiety disorder 300.02 and Bipolar II disorder 296.89 [facility] [id number] [place] [phone] Nov, Bipolar I disorder, most recent episode (or current) mixed, unspecified 296.60 [facility] [id number] [place] [id number] Oct, [facility] [id number] [place] [id number] Oct, [facility] [id number] [place] [id number] Oct, [facility] [id number] [place] [phone] Oct, Bipolar I disorder, most recent episode (or current) mixed, unspecified 296.60 [facility] [id number] [address] Sep, Diabetes 250.00 [facility] [id number] [place] [address]- 3301 Sep, Bipolar I disorder, most recent episode (or current) mixed, unspecified 296.60 [facility] [id number] [address] Sep, [facility] [id number] [address] Sep, [facility] [id number] [address]- 4521 Sep, Bipolar I disorder, most recent episode (or current) mixed, unspecified 296.60 [facility] [id number] [address] 8333 Sep, Bipolar I disorder, most recent episode (or current) mixed, unspecified 296.60 [facility] [id number] [address] [address] Sep, [facility] [id number] [place] [address] 364237- 7162 Sep, Anxiety 300.00 ; Diabetes 250.00 and Hyperlipidemia 272.4 [facility] [id number] [place] [address] 36167- 2688 Aug, [facility] [id number] [place] [address]- 3006 Aug, [facility] [id number] [place] [address] 05597- 8095 Aug, [facility] [id number] [place] [address] 53407- 4407 Aug, Bipolar I disorder, most recent episode (or current) mixed, unspecified 296.60 [facility] [id number] [place] [address] 08804- 4585 Aug, Generalized anxiety disorder 300.02 and Bipolar II disorder 296.89 [facility] [id number] [address]- 9950 July, Bipolar I disorder, most recent episode (or current) mixed, unspecified 296.60 [facility] [id number] [address]- 5110 July, Cough 786.2 [facility] [id number] [place] [address] 56758- 1327 July, Bipolar I disorder, most recent episode (or current) mixed, unspecified 296.60 [facility] [id number] [address]- 3561 Jun, Diabetes 250.00 [facility] [id number] [address]- 8037 14 Jun, 2014 [facility] [place] [facility] [address] [id number] [place] [address]- 3184 13 Jun, 2014 [facility] [place] [facility] [address] [id number] [place] [address]- 4008 24 May, 2014 [facility] [place] [facility] [address] [id number] [place] [address]- 3919 24 May, 2014 [facility] [place] [facility] [address] [id number] [place] [address]- 9797 10 May, 2014 [facility] [place] [facility] [address] [id number] [place] [address]- 4794 10 May, 2014 [facility] [place] [facility] [address] [facility] [id number] [place] [address]- 7058 10 May, 2014 [facility] [place] [facility] [address] [facility] [id number] [place] [address]- 9216 10 May, 2014 [facility] [place] [facility] [address] [facility] [id number] [place] [address]- 6284 20 Apr, 2014 [facility] [place] [facility] [address] [facility] [id number] [place] [address]- 4329 20 Apr, 2014 [facility] [place] [facility] [address] [facility] [id number] [place] [address]- 0545 11 Apr, 2014 [facility] [place] [facility] [address] [facility] [id number] [place] [address]- 8692 11 Apr, 2014 [facility] [place] [facility] [address] [facility] [id number] [place] [address]- 2540 10 Apr, 2014 [facility] [place] [facility] [address] [id number] [place] [address]- 5127 10 Apr, 2014 [facility] [place] [facility] [address] [facility] [id number] [place] 3340 05 Apr, 2014 [facility] [place] [facility] [address] [facility] [id number] [place] [address]- 6059 Apr, [facility] [place] [facility] [address] [id number] [place] [address]- 7464 Mar, [facility] [place] [facility] [address] [id number] [place] [address]- 5311 Mar, [facility] [place] [facility] [address] [id number] [place] [address]- 4732 Mar, [facility] [place] [facility] [address] [id number] [place] [address]- 8797 Mar, [facility] [place] [facility] [address] [id number] [place] [address]- 0545 Mar, [facility] [place] [facility] [address] [id number] [place] [address]- 4888 Mar, [facility] [place] [facility] [address] [id number] [place] [address]- 6242 Mar, [facility] [place] [facility] [address] [id number] [place] [address]- 9417 Mar, [facility] [place] [facility] [address] [id number] [place] [address]- 7051 Feb, [facility] [place] [facility] [address] [id number] [place] [address]- 2836 Feb, [facility] [place] [facility] [address] [id number] [place] [address]- 6135 Feb, [facility] [place] [facility] [address] [id number] [place] [address]- 7988 Feb, [facility] [place] [facility] [address] [id number] [place] [address]- 0677 Feb, [facility] [place] [facility] [address] [id number] [place] [address]- 1463 Feb, [facility] [place] [facility] [address] [id number] [place] [address]- 2347 Feb, [facility] [place] [facility] [address] [id number] [place] [address]- 4965 Feb, [facility] [place] [facility] [address] [id number] [place] [address]- 6854 Feb, [facility] [place] [facility] [address] [id number] [place] [address]- 6467 Feb, [facility] [place] [facility] [address] [id number] [place] [address]- 5897 Jan, [facility] [place] [facility] [address] [id number] [place] [address]- 8994 Jan, [facility] [place] [facility] [address] [id number] [place] [address]- 6531 Jan, [facility] [place] [facility] [address] [id number] [place] [address]- 2840 Jan, [facility] [place] [facility] [address] [id number] [place] [address]- 4385 Jan, [facility] [place] [facility] [address] [id number] [place] [address]- 8373 Jan, [facility] [place] [facility] [address] [id number] [place] [address]- 9240 Jan, [facility] [place] [facility] [address] [id number] [place] [address]- 1811 Jan, [facility] [place] [facility] [address] [id number] [place] [address]- 9596 Jan, [facility] [place] [facility] [address] [id number] [place] [address]- 7417 Jan, [facility] [place] [facility] [address] [id number] [place] [address]- 2485 Jan, [facility] [place] [facility] [address] [id number] [place] [address]- 8543 Jan, [facility] [place] [facility] [address] [id number] [place] [address]- 4333 Jan, [facility] [place] [facility] [address] [id number] [place] [address]- 4096 Jan, [facility] [place] [facility] [address] [id number] [place] [address]- 0133 Jan, [facility] [place] [facility] [address] [id number] [place] [address]- 3207 Dec, [facility] [place] [facility] [address] [id number] [place] [address]- 3983 Dec, [facility] [place] [facility] [address] [id number] [place] 8815 Dec, [facility] [place] [facility] [address] [id number] [place] [address]- 2232 Dec, [facility] [place] [facility] [address] [id number] [place] [address]- 7150 Dec, [facility] [place] [facility] [address] [id number] [place] [address]- 3234 Dec, [facility] [place] [facility] [address] [id number] [place] [address]- 5417 Dec, [facility] [place] [facility] [address] [id number], [place] [address]- 9214 Dec, [facility] [place] [facility] [address] [id number], [place] [address]- 1771 Nov, [facility] [place] [facility] [address] [id number], [place] [address]- 9928 25 Nov, 2013 [facility] [place] [facility] [address] [id number] [place] [address]- 3704 10 Nov, 2013 [facility] [place] [facility] [address] [id number] [place] [address]- 0036 10 Nov, 2013 [facility] [place] [facility] [address] [id number], [place] [address]- 9060 08 Nov, 2013 [facility] [place] [facility] [address] [id number], [place] [address]- 8296 08 Nov, 2013 [facility] [place] [facility] [address] [id number] [place] [address]- 3462 08 Nov, 2013 [facility] [place] [facility] [address] [id number] [place] [address]- 9953 08 Nov, 2013 [facility] [place] [facility] [address] [id number] [place] [address]- 6437 08 Nov, 2013 [facility] [place] [facility] [address] [id number] [place] [address]- 2966 08 Nov, 2013 [facility] [place] [facility] [address] [id number] [place] [address]- 7367 Nov, 2013 [facility] [place] [facility] [address] [id number] [place] [address]- 9384 Nov, 2013 [facility] [place] [facility] [address] [id number] [place] [address]- 7937 Nov, 2013 [facility] [place] [facility] [address] [id number] [place] [address]- 9230 Nov, 2013 [facility] [place] [facility] [address] [id number] [place] [address]- 1074 Nov, 2013 [facility] [place] [facility] [address] [id number] [place] [address]- 4795 Oct, [facility] [place] [facility] [address] [id number] [place] [address]- 5016 Oct, [facility] [place] [facility] [address] [id number] [place] [address]- 3223 Oct, [facility] [place] [facility] [address] [id number] [place] [address]- 1110 Oct, [facility] [place] [facility] [address] [id number] [place] [address]- 6700 Oct, [facility] [place] [facility] [address] [id number] [place] [address]- 0997 Oct, [facility] [place] [facility] [address] [id number] [place] [address]- 2513 Oct, [facility] [place] [facility] [address] [id number] [place] [address]- 9709 Oct, [facility] [place] [facility] [address] [id number] [place] [address]- 3480 Oct, [facility] [place] [facility] [address] [id number] [place] [address]- 8228 Oct, [facility] [place] [facility] [address] [id number] [place] [address]- 9963 Oct, [facility] [place] [facility] [address] [id number] [place] [address]- 7962 Oct, [facility] [place] [facility] [address] [id number] [place] [address]- 9047 Oct, [facility] [place] [facility] [address] [id number] [place] [address]- 0029 Oct, [facility] [place] [facility] [address] [id number] [place] [address]- 0651 Sep, [facility] [place] [facility] [address] [id number] [place] [address]- 7649 Sep, [facility] [place] [facility] [address] [id number] [place] [address]- 8819 Sep, [facility] [place] [facility] [address] [id number] [place] [address]- 0972 Sep, [facility] [place] [facility] [address] [id number] [place] [address]- 2514 Sep, [facility] [place] [facility] [address] [id number] [place] [address]- 5362 Sep, [facility] [place] [facility] [address] [id number] [place] [address]- 0743 Sep, [facility] [place] [facility] [address] [id number] [place] [address]- 2003 Sep, [facility] [place] [facility] [address] [id number] [place] [address]- 6362 Aug, [facility] [place] [facility] [address] [id number] [place] [address]- 2592 Aug, [facility] [place] [facility] [address] [id number] [place] [address]- 1874 Aug, [facility] [place] [facility] [address] [id number] [place] [address]- 3345 Aug, [facility] [place] [facility] [address] [id number] [place] [address]- 3106 Aug, [facility] [place] [facility] [address] [id number] [place] [address]- 6912 Aug, [facility] [place] [facility] [address] [id number] [place] [address]- 0321 Aug, [facility] [place] [facility] [address] [id number] [place] [address]- 3071 Aug, [facility] [place] [facility] [address] [id number] [place] [address]- 3572 July, [facility] [place] [facility] [address] [id number] [place] [address]- 0352 July, [facility] [place] [facility] [address] [id number] [place] [address]- 8154 July, [facility] [place] [facility] [address] [id number] [place] [address]- 7268 July, [facility] [place] [facility] [address] [id number] [place] [address]- 3261 July, [facility] [place] [facility] [address] [id number] [place] [address]- 5906 July, [facility] [place] [facility] [address] [id number] [place] [address]- 7297 July, [facility] [place] [facility] [address] [id number] [place] [address]- 5665 July, [facility] [place] [facility] [address] [id number] [place] [address]- 7653 Jun, [facility] [place] [facility] [address] [id number] [place] [address]- 7006 Jun, [facility] [place] [facility] [address] [id number] [place] [address]- 6524 Jun, [facility] [place] [facility] [address] [id number] [place] [address]- 7178 Jun, [facility] [place] [facility] [address] [id number] [place] [address]- 9552 Jun, [facility] [place] [facility] [address] [id number] [place] [address]- 2474 Jun, [facility] [place] [facility] [address] [id number] [place] [address]- 6031 Jun, [facility] [place] [facility] [address] [id number] [place] [address]- 2937 Jun, [facility] [place] [facility] [address] [id number] [place] [address]- 9888 Jun, [facility] [place] [facility] [address] [id number] [place] [address]- 3450 Jun, [facility] [place] [facility] [address] [id number] [place] [address]- 1946 Jun, [facility] [place] [facility] [address] [id number] [place] [address]- 1336 Jun, [facility] [place] [facility] [address] [id number] [place] [address]- 5036 May, [facility] [place] [facility] [address] [id number] [place] [address]- 6238 May, [facility] [place] [facility] [address] [id number] [place] [address]- 9033 May, [facility] [place] [facility] [address] [id number] [place] [address]- 4485 26 May, 2013 [facility] [place] [facility] [address] [id number] [place] [address]- 5890 13 May, 2013 [facility] [place] [facility] [address] [id number] [place] [address]- 2582 13 May, 2013 [facility] [place] [facility] [address] [id number] [place] [address]- 3244 12 May, 2013 [facility] [place] [facility] [address] [id number] [place] [address]- 2637 12 May, 2013 [facility] [place] [facility] [address] [id number] [place] [address]- 5330 11 May, 2013 [facility] [place] [facility] [address] [id number] [place] [address]- 7285 11 May, 2013 [facility] [place] [facility] [address] [id number] [place] [address]- 8641 11 May, 2013 [facility] [place] [facility] [address] [id number] [place] [address]- 1488 11 May, 2013 [facility] [place] [facility] [address] [id number] [place] [address]- 7006 10 May, 2013 [facility] [place] [facility] [address] [id number] [place] [address]- 0190 May, [facility] [place] [facility] [address] [id number] [place] [address]- 6855 Apr, [facility] [place] [facility] [address] [id number] [place] [address]- 3635 Apr, [facility] [place] [facility] [address] [id number] [place] [address]- 1961 Apr, [facility] [place] [facility] [address] [id number] [place] [address]- 9093 Apr, [facility] [place] [facility] [address] [id number], [place] [address]- 1236 Apr, [facility] [place] [facility] [address] [id number] [place] [address]- 4011 Apr, [facility] [place] [facility] [address] [id number] [place] [address]- 6389 Mar, [facility] [place] [facility] [address] [id number] [place] [address]- 1407 Mar, [facility] [place] [facility] [address] [id number] [place] [address]- 0759 Mar, [facility] [place] [facility] [address] [id number] [place] [address]- 1785 Mar, [facility] [place] [facility] [address] [id number] [place] [address]- 3329 Mar, [facility] [place] [facility] [address] [id number] [place] [address]- 9521 Mar, [facility] [place] [facility] [address] [id number] [place] [address]- 9374 Mar, [facility] [place] [facility] [address] [id number] [place] [address]- 0399 Mar, [facility] [place] [facility] [address] [id number] [place] [address]- 9002 Mar, [facility] [place] [facility] [address] [id number] [place] [address]- 0665 Mar, [facility] [place] [facility] [address] [id number], [place] [address]- 1044 Mar, [facility] [place] [facility] [address] [id number] [place] [address]- 5754 Mar, [facility] [place] [facility] [address] [id number] [place] [address]- 9244 Mar, [facility] [place] [facility] [address] [id number] [place] [address]- 6524 Mar, [facility] [place] [facility] [address] [id number] [place] [address]- 2624 Feb, 2012 [facility] [place] [facility] [address] [id number] [place] [address]- 8174 Feb, [facility] [place] [facility] [address] [id number] [place] [address]- 1584 Feb, [facility] [place] [facility] [address] [id number] [place] [address]- 5376 Feb, [facility] [place] [facility] [address] [id number] [place] [address]- 4027 Feb, [facility] [place] [facility] [address] [id number] [place] [address]- 3745 Feb, [facility] [place] [facility] [address] [id number] [place] 6990 Feb, [facility] [place] [facility] [address] [id number] [place] [address]- 5243 Feb, [facility] [place] [facility] [address] [id number] [place] [address]- 6723 Feb, [facility] [place] [facility] [address] [id number] [place] [address]- 0236 Feb, [facility] [place] [facility] [address] [id number] [place] [address]- 8726 Feb, [facility] [place] [facility] [address] [id number] [place] [address]- 6003 Feb, [facility] [place] [facility] [address] [id number] [place] [address]- 4442 Feb, [facility] [place] [facility] [address] [id number] [place] [address]- 3026 Feb, [facility] [place] [facility] [address] [id number] [place] [address]- 0539 Feb, [facility] [place] [facility] [address] [id number] [place] [address]- 2862 05 Feb, 2012 [facility] [place] [facility] [address] [id number] [place] [address]- 3208 24 Dec, 2012 [facility] [place] [facility] [address] [id number] [place] [address]- 7884 24 Dec, 2012 [facility] [place] [facility] [address] [id number] [place] [address]- 9640 16 Dec, 2012 [facility] [place] [facility] [address] [id number] [place] [address]- 6839 16 Dec, 2012 [facility] [place] [facility] [address] [id number] [place] [address]- 4691 16 Dec, 2012 [facility] [place] [facility] [address] [id number] [place] [address]- 2052 16 Dec, 2012 [facility] [place] [facility] [address] [id number] [place] [address]- 6111 14 Dec, 2012 [facility] [place] [facility] [address] [id number], [place] [address]- 0366 14 Dec, 2012 [facility] [place] [facility] [address] [id number], [place] [address] 10 Dec, 2012 [facility] [place] [facility] [address] [id number], [place] [address] 10 Dec, 2012 [facility] [place] [facility] [address] [id number], [place] [address] 10 Dec, 2012 [facility] [place] [facility] [address] [id number], [place] [address] 10 Dec, 2012 [facility] [place] [facility] [address] [id number], [place] [address] 03 Dec, 2012 [facility] [place] [facility] [address] [id number], [place] [address] 25 Nov, 2012 [facility] [place] [facility] [address] [id number], [place] [address] 20 Nov, 2012 [facility] [place] [facility] [address] [id number] [place] [address] 64[address] 18 Nov, 2012 [facility] [address] [id number] [place] [address] 6607 16 Nov, 2012 [facility] [place] [facility] [address] [id number] [place] [address] 12 Nov, 2012 [facility] [place] [facility] [address] [id number] [place] [address] 6628 11 Nov, 2012 [facility] [place] [facility] [address] [id number] [place] [address]41 05 Nov, 2012 [facility] [place] [facility] [address] [id number] [place] [address] 15 Oct, 2012 [facility] [place] [facility] [address] [id number] [place] [address] Oct, [facility] [address] [id number] [place] [address] 24 Sep, 2012 [facility] [address] [id number] [place] [address] Sep, [facility] [place] [facility] [address] [id number] [place] [address] 295[address] Sep, [facility] [place] [facility] [address] [id number] [place] [address] 1474 Sep, [facility] [place] [facility] [address] [id number] [place] [address]- [address] 15 Sep, 2012 [facility] [place] [facility] [address] [id number] [place] [address] 69[address] Sep, [facility] [place] [facility] [address] [id number] [place] [address] Sep, [facility] [place] [facility] [address] [id number] [place] [address]160 Aug, [facility] [place] [facility] [address] [id number] [place] [address] Aug, [facility] [place] [facility] [address] [id number] [place] [address]- 8471 16 Aug, 2012 [facility] [address] [id number] [place] [address]226 Aug, [facility] [address] [id number] [place] [address] 135[address] 11 Aug, 2012 [facility] [address] [id number] [place] [address]- [address]992 Aug, [facility] [address] [id number] [place] [address] 1316 Aug, [facility] [address] [id number] [place] [address] 8549 Aug, [facility] [address] [id number] [place] [address] July, [facility] [address] [id number] [place] [address] 295[address] July, [facility] [address] [id number] [place] [address] July, [facility] [address] [id number] [place] [id number] July, [facility] [address] [id number] [place] [address] July, [facility] [address] [id number] [place] [address]- 67[address] Jun, [facility] [place] [facility] [address] [id number] [place] [address] 09[address] May, [facility] [place] [facility] [address] [id number] [place] [address]- 1426 14 May, 2012 [facility] [place] [facility] [address] [id number] [place] [address]- 7065 04 May, 2012 [facility] [place] [facility] [address] [id number] [place] [address] Apr, [facility] [address] [id number] [place] [address] Apr, [facility] [address] [id number] [place] [address] Apr, [facility] [address] [id number] [place] [address] Mar, [facility] [address] [id number] [place] [address] 2971 Mar, [facility] [address] [id number] [place] [address] 1335 Mar, [facility] [address] [id number] [place] [address]- 9580 Mar, [facility] [address] [id number] [place] [address]- 65[address] Mar, [facility] [address] [id number] [place] [address]- 25[address] Mar, [facility] [address] [id number] [place] [address] Mar, [facility] [address] [id number] [place] [address]644 Feb, [facility] [address] [id number] [place] [address]- [address] 31 Feb, 2012 [facility] [address] [id number] [place] [address]- 8581 18 Feb, 2012 [facility] [address] [id number] [place] [address]- [address] 18 Feb, 2012 [facility] [address] [id number] [place] [address] 17 Feb, 2012 [facility] [address] [id number] [place] [address]- 8210 17 Feb, 2012 [facility] [address] [id number] [place] [address] Feb, [facility] [place] [facility] [address] [id number] [place] [address] Feb, [facility] [place] [facility] [address] [id number] [place] [address] Jan, [facility] [place] [facility] [address] [id number] [place] [address] Jan, [facility] [place] [facility] [address] [id number] [place] [address] Jan, [facility] [place] [facility] [address] [id number] [place] [address] Jan, [facility] [place] [facility] [address] [id number] [place] [address] 96[address] Jan, [facility] [place] [facility] [address] [id number] [place] [address] 1190 Jan, [facility] [place] [facility] [address] [id number] [place] [address] 9423 Jan, [facility] [place] [facility] [address] [id number] [place] [address]842 Jan, [facility] [place] [facility] [address] [id number] [place] [address] Jan, [facility] [place] [facility] [address] [id number] [place] [address] Jan, [facility] [place] [facility] [address] [id number] [place] [address] 7537 Jan, [facility] [place] [facility] [address] [id number] [place] [address]- 0998 Jan, [facility] [place] [facility] [address] [id number] [place] [address] 6441 Jan, [facility] [place] [facility] [address] [id number] [place] [address] Jan, [facility] [place] [facility] [address] [id number] [place] [address] 225[address] Jan, [facility] [place] [facility] [address] [id number] [place] [address] 4908 Jan, [facility] [place] [facility] [address] [id number] [place] [address] 1118 Dec, [facility] [place] [facility] [address] [id number] [place] [address]- 0347 Dec, [facility] [place] [facility] [address] [id number] [place] [address] 26[address] Dec, [facility] [place] [facility] [address] [id number] [place] [address]- 5298 Dec, [facility] [place] [facility] [address] [id number] [place] [address]- 5013 Dec, [facility] [place] [facility] [address] [id number] [place] [address] 2940 Dec, [facility] [place] [facility] [address] [id number] [place] [address]- 7580 Dec, [facility] [place] [facility] [address] [id number] [place] [address]- 4026 Dec, [facility] [place] [facility] [address] [id number], [place] [address] Dec, [facility] [place] [facility] [address] [id number], [place] [address]- [address] 05 Dec, 2011 [facility] [place] [facility] [address] [id number] [place] [address]- 3366 18 Nov, 2011 [facility] [place] [facility] [address] [id number], [place] [address] 13 Nov, 2011 [facility] [place] [facility] [address] [id number] [place] [address]- 8977 24 Oct, 2011 [facility] [place] [facility] [address] [id number] [place] [address]- 7877 Oct, [facility] [place] [facility] [address] [id number] [place] [address]- 1191 Oct, [facility] [place] [facility] [address] [id number] [place] [address]- 5170 Oct, [facility] [place] [facility] [address] [id number] [place] [address]- 4326 Oct, [facility] [place] [facility] [address] [id number] [place] [address] 6499 Oct, [facility] [place] [facility] [address] [id number] [place] [address] 7312 Oct, [facility] [place] [facility] [address] [id number] [place] [address]- 7784 Sep, [facility] [place] [facility] [address] [id number] [place] [address] 7855 Aug, [facility] [place] [facility] [address] [id number] [place] [address]- 8545 Aug, [facility] [place] [facility] [address] [id number] [place] [address]- 6947 Aug, [facility] [place] [facility] [address] [id number] [place] [address] 2952 Aug, [facility] [place] [facility] [address] [id number] [place] [address] 6009 Aug, [facility] [place] [facility] [address] [id number] [place] [address] 4028 July, [facility] [place] [facility] [address] [id number] [place] [address] 2429 July, [facility] [place] [facility] [address] [id number] [place] [address] 8651 July, [facility] [place] [facility] [address] [id number] [place] [address]- 1685 Jun, [facility] [place] [facility] [address] [id number] [place] [address]- 9868 05 Jun, 2011 [facility] [place] [facility] [address] [id number] [place] [address]- 2836 Jun, [facility] [place] [facility] [address] [id number] [place] [address]- 7536 Jun, [facility] [place] [facility] [address] [id number] [place] [address]- 2984 30 May, 2011 [facility] [place] [facility] [address] [id number] [place] [address]- 5964 30 May, 2011 [facility] [place] [facility] [address] [id number] [place] [address]- 1809 29 May, 2011 [facility] [place] [facility] [address] [id number] [place] [address] 1933 May, [facility] [place] [facility] [address] [id number] [place] [address]- 5960 May, [facility] [place] [facility] [address] [id number] [place] [address]- 3263 May, [facility] [place] [facility] [address] [id number] [place] [address]- 5851 May, [facility] [place] [facility] [address] [id number] [place] [address]- 0212 May, [facility] [place] [facility] [address] [id number] [place] [address]- 0186 08 May, 2011 [facility] [place] [facility] [address] [id number] [place] [address]- 2412 05 May, 2011 [facility] [place] [facility] [address] [id number] [place] [address]- 1225 May, [facility] [place] [facility] [address] [id number] [place] [address]- 3309 May, [facility] [place] [facility] [address] [id number] [place] [address]- 1208 31 Mar, 2011 [facility] [place] [facility] [address] [id number] [place] [address]- 8923 Mar, [facility] [place] [facility] [address] [id number] [place] [address]- 6424 28 Feb, 2011 [facility] [place] [facility] [address] [id number] [place] [address] Feb, [facility] [place] [facility] [address] [id number] [place] [address]- 0427 20 Feb, 2011 [facility] [place] [facility] [address] [id number] [place] [address]- 0122 15 Feb, 2011 [facility] [place] [facility] [address] [id number] [place] [address]- 2976 13 Feb, 2011 [facility] [place] [facility] [address] [id number] [place] [address]- 5054 Feb, [facility] [place] [facility] [address] [id number] [place] [address]- 7154 Feb, [facility] [place] [facility] [address] [id number] [place] [address]- 8612 Jan, [facility] [place] [facility] [address] [id number] [place] [address]- 9999 Jan, [facility] [place] [facility] [address] [id number] [place] [address]- 4336 Jan, [facility] [place] [facility] [address] [id number], [place] [address]- 8967 17 Jan, 2011 [facility] [place] [facility] [address] [id number] [place] [address]- 8554 07 Jan, 2011 [facility] [place] [facility] [address] [id number] [place] [address]- 9318 03 Jan, 2011 [facility] [place] [facility] [address] [id number] [place] [address]- 1779 27 Dec, 2010 [facility] [place] [facility] [address] [id number] [place] [address]- 9399 27 Dec, 2010 [facility] [address] [id number] [place] [address]- 5236 Dec, [facility] [address] [id number] [place] [address]- 4126 July, [facility] [address] [id number] [place] [address]- 4914 July, [facility] [address] [id number] [place] [address]- 254 Feb, [facility] [address] [id number] [place] [address]- 0882 Jan, [facility] [address] [id number] [place] [address]- 3947 Dec, [facility] [address] [id number] [place] [address]- 5899 Dec, [facility] [address] [id number] [place] [address]- 8668 15 Sep, 2009 [facility] [address] [id number] [place] [address]- 7259 Aug, [facility] [address] [id number] [place] [address]- 4269 Jun, [facility] [address] [id number] [place] [address]- 5315 Jun, [facility] [address] [id number] [place] [address]- 5240 Jan, [facility] [place] [facility] [address] [id number] [place] [address]- 5674 Jan, [facility] [place] [facility] [address] [id number] [place] [address]- 7659 Jan, [facility] [address] [id number] [place] [address]- 7623 Jan, [facility] [address] [id number], [place] [address] 2546 Dec, [facility] [id number], [place] [address] 2546 Dec, [facility] [address] [id number], [place] [address] 2546 Dec, [facility] [id number], [place] [address]- 2546 Nov, [facility] [id number], [place] [address] 2541 July, [facility] [id number], [place] [address] 2546 May, [facility] [id number], [place] [address] 2546 Apr, [facility] [id number], [place] [address] 2546 Feb, [facility] [address] [id number], [place] [address]- [address]116 Dec, IMMUNIZATIONS No Known Immunizations SOCIAL HISTORY Never Assessed REASON FOR VISIT f/u PLAN OF CARE Activity Details Follow Up 2 Weeks Reason: VITAL SIGNS MEDICATIONS Unknown Medications RESULTS No Results PROCEDURES Procedure Date Ordered Result Body Site Psychotherapy, patient &/family, 30 minutes, established patient September 15, 2017 INSTRUCTIONS MEDICATIONS ADMINISTERED No Known Medications [...]
--- OUTSIDE RECORDS SUMMARY | 2018-06-14 14:34 | XMS REPORT ---
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 Name Role Phone BEVERLY TAO Unavailable PROBLEMS Type Condition ICD9-CM Code LUL11-YI Code Onset Dates Condition Status SNOMED Code Problem Lumbar radiculopathy M54.16 Active 672570470 Problem penitentiary current 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 Z79.891 Active 963115435 Problem Bipolar 1 disorder F31.9 Active 846625437 Problem Type 2 diabetes mellitus with hyperglycemia E11.65 Active 63928935 Problem intermediate frame tender current use of insulin Z79.4 Active 281424237 Problem Hyperlipidemia, unspecified E78.5 Active 06943792 Problem Type 2 diabetes mellitus with complication E11.8 Active 003404880 Problem New daily persistent headache G44.52 Active 126239539 Problem Acute bilateral low back pain with right-sided sciatica M54.41 Active 314951328 Problem Obesity, unspecified 278.00 Active 673926497 Problem Hyperlipidemia 272.4 Active 00783613 Problem Post laminectomy syndrome M96.1 Active 33063077 Problem Eye exam normal Z01.00 Active 292090307 Problem 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 [address], [place] [address] Nov, [facility] [address], [place] [address] Nov, 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 and Extreme poverty Z59.5 [facility] [place] [address] 04336- 7610 Oct, Type 2 diabetes mellitus with hyperglycemia E11.65 ; intermediate frame tender current use of insulin Z79.4 and Other acute gastritis without hemorrhage K29.00 [facility] [id number] [place] [address] 68116- 9322 Oct, Bipolar 1 disorder F31.9 ; 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 and Extreme poverty Z59.5 [facility] [id number] [place] [address] 82666- 8502 Sep, Diarrhea, unspecified R19.7 and Vomiting, unspecified R11.10 [facility] [id number] [place] [address] 84819- 6929 Aug, Type 2 diabetes mellitus with complication E11.8 [facility] [id number] [place] [address] 12513- 6946 Aug, [facility] [id number] [place] [address] 53022- 3921 Aug, Bipolar 1 disorder F31.9 ; 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 [id number] [place] [address] 94065- 9463 Aug, 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 and Extreme poverty Z59.5 [facility] [id number] [place] [address] 06305- 6099 Jun, Bipolar 1 disorder F31.9 ; 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 and Extreme poverty Z59.5 [facility] [id number] [place] [address] 37027- 1429 Jun, Bipolar 1 disorder F31.9 ; 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 and Extreme poverty Z59.5 [facility] [id number] [place] [address] 78699- 3688 Jun, Bipolar 1 disorder F31.9 ; 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 and Extreme poverty Z59.5 [facility] [place] [id number] [place] [address] 58125- 2065 May, Urinary tract infection without hematuria, site unspecified N39.0 [facility] [id number] [place] [address] 97263- 8826 May, Bipolar 1 disorder F31.9 ; 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 and Extreme poverty Z59.5 [facility] [place] [id number] [place] [address] 58294- 5114 Apr, Diabetes E11.9 and Breast cancer screening Z12.31 [facility] [id number] [place] [address] 80253- 6206 Apr, Bipolar 1 disorder F31.9 and 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 [facility] [id number] [place] [address] 66294- 2595 Mar, Bipolar 1 disorder F31.9 ; 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 and Extreme poverty Z59.5 [facility] [address] 22794- 2736 Mar, New daily persistent headache G44.52 ; Leg pain 729.5 and History of carpal tunnel release Z98.890 [facility] [id number] [place] [address] 55278- 9735 Mar, Hyperlipidemia, unspecified E78.5 [facility] [address] 04650- 0725 Mar, Bipolar 1 disorder F31.9 ; 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 and Extreme poverty Z59.5 [facility] [address] 66943- 2595 Feb, Bipolar 1 disorder F31.9 ; 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 and Extreme poverty Z59.5 [facility] [id number] [place] [address] 95396- 0474 Feb, Diabetes E11.9 [facility] [address] 53213- 9189 Feb, Viral syndrome B34.[address] 57875- 6235 Jan, Other viral agents as the cause of diseases classified elsewhere B97.89 and Acute upper respiratory infection, unspecified J06.9 [facility] [id number] [place] [address] 29865- 4738 Jan, Bipolar 1 disorder F31.9 and 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 [facility] [id number] [place] [address] 16656- 5323 Jan, Bipolar 1 disorder F31.9 ; 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 and Extreme poverty Z59.5 [facility] [id number] [place] [address] 41885- 1239 Dec, Diabetes E11.9 [facility] [address] 292793- 1282 Dec, Diabetes E11.9 and Encounter for immunization Z23 [facility] [id number] [place] [address] 86858- 9014 Dec, Bipolar 1 disorder F31.9 ; 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 and Extreme poverty Z59.5 [facility] [id number] [place] [address] 21651- 6788 Dec, Back pain M54.9 [facility] [id number] [place] [address] 07186- 0289 07 Nov, 2016 [facility] [id number] [place] [address] 79676- 4427 Nov, Bipolar 1 disorder F31.9 ; 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 and Extreme poverty Z59.5 [facility] [id number] [place] [address] 81237- 2601 Nov, Bipolar 1 disorder F31.9 ; 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 and Extreme poverty Z59.5 [facility] [id number] [place] [address] 47543- 8553 July, Back pain M54.9 and Diabetes E11.9 [facility] [id number] [place] [address] 73044- 8266 Jun, Bipolar 1 disorder F31.9 ; 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 and Extreme poverty Z59.5 [facility] [id number] [place] [address] 15834- 1907 Jun, Bipolar 1 disorder F31.9 ; 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 and Extreme poverty Z59.5 [facility] [id number] [place] [address] 20348- 4312 May, Visit for pelvic exam Z01.419 ; Acute vaginitis N76.0 and Diabetes E11.9 [facility] [id number] [place] [address] 41844- 1883 May, Bipolar 1 disorder F31.9 ; 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 and Extreme poverty Z59.5 [facility] [id number] [place] [address] 93235- 1336 May, [facility] [id number] [place] [address] 28638- 2457 May, [facility] [id number] [place] [address] 14618- 4548 May, Bipolar 1 disorder F31.9 ; 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 and Extreme poverty Z59.5 [facility] [id number] [place] [address] 28245- 1152 May, Hyperlipidemia, unspecified E78.5 [facility] [id number] [place] [address] 60676- 0127 Apr, Breast cancer screening Z12.39 [facility] [id number] [place] [address] 66739- 9304 Mar, [facility] [id number] [place] [address] 07625- 0753 Mar, Bipolar disorder, current episode mixed, unspecified F31.60 [facility] [id number] [place] [address] 35835- 1584 Mar, Bipolar 1 disorder F31.9 ; 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 and Extreme poverty Z59.5 [facility] [id number] [place] [address] 90583- 8685 Feb, Acute nasopharyngitis J00 [place] [address] 96058- 3018 27 Feb, 2016 Dental examination Z01.20 [facility] [address] 12883- 6300 21 Feb, 2016 Dental cavities K02.9 and Chronic periodontitis, unspecified K05.30 [facility] [id number] [place] [address] 73745- 1753 13 Feb, 2016 Low back pain M54.5 and Extreme poverty Z59.5 [facility] [id number] [place] [address] 02547- 0857 Feb, [facility] [id number] [place] [address] 43035- 5443 05 Feb, 2016 Routine gynecological examination V72.31 ; Breast cancer screening Z12.39 and Herpes simplex type 1 infection B00.9 [facility] [id number] [place] [address] 42578- 7557 Feb, Diabetes E11.9 [facility] [id number] [place] [address] 57954- 2848 Feb, Encounter for dental examination and cleaning without abnormal findings Z01.20 [facility] [address] 78377- 5209 Jan, Hyperlipidemia, unspecified E78.5 [facility] [id number] [place] [address] 51834- 6811 Jan, Bipolar 1 disorder F31.9 ; 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 and Extreme poverty Z59.5 [facility] [id number] [place] [address] 72939- 5540 Jan, Diabetes E11.9 [facility] [address] 306360- 1412 17 Jan, 2016 Diabetes E11.9 [facility] [id number] [place] [address] 47724- 5805 14 Dec, 2015 Bipolar 1 disorder F31.9 ; 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 and Extreme poverty Z59.5 [facility] [id number] [place] [address] 16546- 7613 13 Dec, 2015 Bipolar disorder, current episode mixed, unspecified F31.60 and 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 [facility] [id number] [place] [address] 05341- 7079 16 Nov, 2015 Bipolar 1 disorder F31.9 ; 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 ; Extreme poverty Z59.5 and Non compliance with medical treatment Z91.19 [facility] [id number] [place] [address] 99635- 7035 Oct, [facility] [id number] [place] [address] 73408- 6569 Oct, Dental caries K02.9 [facility] [id number] [place] [address] 08699- 9333 Oct, Low back pain M54.5 and Other chronic pain G89.29 [facility] [id number] [place] [address] 52270- 5530 Oct, Bipolar 1 disorder F31.9 ; 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 ; Extreme poverty Z59.5 and Non compliance with medical treatment Z91.19 [facility] [address], [place] [address]- 7704 Oct, [facility] [id number] [place] [address] 14062- 7329 Oct, [facility] [id number] [place] [address] 64163- 5694 Oct, Dental examination Z01.20 [facility] [id number] [place] [address] 23133- 4763 Oct, Bipolar 1 disorder F31.9 ; 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 ; Extreme poverty Z59.5 and Non compliance with medical treatment Z91.19 [facility] [id number] [place] [address] 88276- 7198 Oct, [facility] [id number] [place] [address] 99795- 1162 Sep, Type 2 diabetes mellitus with complication E11.8 [facility] [id number] [place] [address] 57306- 4180 Sep, Bipolar disorder, current episode mixed, unspecified F31.60 [facility] [id number] [place] [address] 17237- 1402 Sep, Bipolar disorder, current episode mixed, unspecified F31.60 [facility] [address] [place] [address] 90890- 2701 Sep, Bipolar disorder, in partial remission, most recent episode manic F31.73 ; 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 ; Extreme poverty Z59.5 and Non compliance with medical treatment Z91.19 [facility] [address] [place] [address] 95897- 3466 Aug, Bipolar disorder, in partial remission, most recent episode manic F31.73 ; 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 ; Extreme poverty Z59.5 and Non compliance with medical treatment Z91.19 [facility] [address] [place] [address] 43724- 5534 Aug, Bipolar disorder, in partial remission, most recent episode manic F31.73 ; 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 ; Extreme poverty Z59.5 and Non compliance with medical treatment Z91.19 [facility] [place] [address] [place] [address] 04730- 6977 Aug, [facility] [id number] [place] [address] 47559- 7399 July, Bipolar disorder, in partial remission, most recent episode manic F31.73 ; 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 ; Extreme poverty Z59.5 and Non compliance with medical treatment Z91.19 [facility] [id number] [place] [address] 40350- 1932 July, Bipolar disorder, current episode mixed, unspecified F31.60 [facility] [id number] [place] [address] 35024- 0588 July, Bipolar disorder, in partial remission, most recent episode manic F31.73 ; 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 ; Extreme poverty Z59.5 and Non compliance with medical treatment Z91.19 [facility] [id number] [place] [address] 63050- 6214 July, penitentiary current 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 Z79.891 and Chronic pain G89.29 [facility] [id number] [place] [address] 55321- 8079 Jun, intermediate frame tender current 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 Z79.891 and Bipolar 1 disorder F31.9 [facility] [address] [place] [address] 22856- 0346 Jun, [facility] [id number] [place] [address] 43144- 6741 Jun, [facility] [id number] [place] [address] 07665- 3718 Jun, [facility] [id number] [place] [address] 99977- 7854 Jun, Bipolar disorder, in partial remission, most recent episode manic F31.73 ; 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 and Non compliance with medical treatment Z91.19 [facility] [address] [place] [address] 49729- 6406 May, Bipolar disorder, in partial remission, most recent episode manic F31.73 ; 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 and Non compliance with medical treatment Z91.19 [facility] [id number] [place] [address] 88482- 2845 May, Bipolar disorder, in partial remission, most recent episode manic F31.73 [facility] [id number] [place] [address] 61791- 5314 May, Diabetes E11.9 and Chronic pain G89.29 [facility] [id number] [place] [address] 75168- 3448 May, [facility] [id number] [place] [address] 89406- 6081 May, Bipolar disorder, in partial remission, most recent episode manic F31.73 ; Non compliance with medical treatment Z91.19 and 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 [facility] [address] [place] [address] 94641- 9045 May, Type 2 diabetes mellitus with complication E11.8 and Back pain M54.9 [facility] [address] [place] [address] 19638- 2764 May, Bipolar disorder, in partial remission, most recent episode manic F31.73 and 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 [facility] [address] [place] [address] 73276- 9025 Apr, [facility] [id number] [place] [address] 90480- 7581 Apr, [facility] [id number] [place] [address] 69381- 7988 Apr, [facility] [id number] [place] [address] 89777- 0416 09 Apr, 2015 Diabetes E11.9 ; Irritable bowel syndrome with diarrhea K58.0 and Lumbar radiculopathy M54.16 [facility] [id number] [place] [address] 42134- 0021 02 Apr, 2015 Breast screening Z12.[address] 70102- 6184 02 Apr, 2015 Bipolar disorder, in partial remission, most recent episode manic F31.73 ; Non compliance with medical treatment Z91.19 and 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 [place] [address]364- 5257 Mar, Edema, unspecified type R60.9 and Type 2 diabetes mellitus with complication E11.[address] 43242- 1445 Mar, Bipolar disorder, in partial remission, most recent episode manic F31.73 ; Non compliance with medical treatment Z91.19 ; 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 and Extreme poverty Z59.5 [place] [id number] [place] [address] 84994- 0379 Mar, Bipolar disorder, current episode mixed, unspecified F31.60 ; 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73 ; 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 and Extreme poverty Z59.5 [facility] [id number] [place] [address] 77935- 3148 Feb, [facility] [id number] [place] [address] 36976- 2619 Jan, Type 2 diabetes mellitus with complication E11.8 and Petechiae R23.3 [facility] [place] [address] 14690- 2484 Jan, Type 2 diabetes mellitus with complication E11.8 ; Edema, unspecified R60.9 ; Petechiae R23.3 and Diabetes E11.9 [facility] [id number] [place] [address] 81647- 5898 Jan, Bipolar disorder, in partial remission, most recent episode manic F31.73 ; 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 and Extreme poverty Z59.5 [facility] [id number] [place] [address] 39833- 2502 Jan, Bipolar disorder, in partial remission, most recent episode manic F31.73 ; 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 and Extreme poverty Z59.5 [facility] [id number] [place] [address] 57885- 1739 Dec, Bipolar disorder, in partial remission, most recent episode manic F31.73 [facility] [id number] [place] [address] 34193- 0783 Dec, Edema, due to unspecified malnutrition type, unspecified edema R60.9 and Essential hypertension I10 [place] [address] [place] [id number]- [address]162 Dec, Bipolar disorder, in partial remission, most recent episode manic F31.73 [facility] [place] [address] [place] [place] [id number] [place] [address] Nov, Bipolar I disorder, most recent episode (or current) mixed, unspecified 296.60 [facility] [id number] [address] Nov, Stress incontinence, female 625.6 ; Back pain 724.5 and Leg pain 729.5 [facility] [id number], [place] [address] Nov, Generalized anxiety disorder 300.02 and Bipolar II disorder 296.89 [facility] [address] [place] [id number] [place] [address] Nov, Bipolar I disorder, most recent episode (or current) mixed, unspecified 296.60 [facility] [id number] [place] [address] 25284- 9541 Oct, [facility] [id number] [place] [address] 64323- 7834 Oct, [facility] [id number] [place] [address] 66781- 3535 Oct, [facility] [id number] [place] [address] 33811- 7878 Oct, Bipolar I disorder, most recent episode (or current) mixed, unspecified 296.60 [facility] [id number], [place] [address] 6037 Sep, Diabetes 250.00 [facility] [id number] [place] [address] 58146- 4341 Sep, Bipolar I disorder, most recent episode (or current) mixed, unspecified 296.60 [facility] [id number], [place] [address]- 7056 Sep, [facility] [id number] [address] 4968 Sep, [facility] [address] [address] 6247 Sep, Bipolar I disorder, most recent episode (or current) mixed, unspecified 296.60 [facility] [id number] [address]- 0448 Sep, Bipolar I disorder, most recent episode (or current) mixed, unspecified 296.60 [facility] [id number] 9[address] Sep, [facility] [id number] [place] [address] 857124- 7415 Sep, Anxiety 300.00 ; Diabetes 250.00 and Hyperlipidemia 272.4 [facility] [id number] [place] [address] 83386- 0364 Aug, [facility] [id number] [place] [address] 45982- 5731 Aug, [facility] [id number] [place] [address] 34204- 9162 Aug, [facility] [id number] [place] [address] 37173- 6934 Aug, Bipolar I disorder, most recent episode (or current) mixed, unspecified 296.60 [facility] [id number] [place] [address] 10549- 3863 Aug, Generalized anxiety disorder 300.02 and Bipolar II disorder 296.89 [facility] [id number] [address]- 3978 July, Bipolar I disorder, most recent episode (or current) mixed, unspecified 296.60 [facility] [id number] [address]- 8220 July, Cough 786.2 [facility] [id number] [place] [address] 28404- 4534 July, Bipolar I disorder, most recent episode (or current) mixed, unspecified 296.60 [facility] [id number] [address]- 4875 Jun, Diabetes 250.00 [facility] [id number] [place] [address]- 8717 14 Jun, 2014 [facility] [place] [facility] [address] [id number] [place] [address]- 0182 13 Jun, 2014 [facility] [place] [facility] [address] [id number] [place] [address]- 6917 24 May, 2014 [facility] [place] [facility] [address] [id number] [place] [address]- 2872 24 May, 2014 [facility] [place] [facility] [address] [id number] [place] [address]- 1073 10 May, 2014 [facility] [place] [facility] [address] [id number] [place] [address]- 9257 10 May, 2014 [facility] [place] [facility] [address] [facility] [id number] [place] [address]- 2673 10 May, 2014 [facility] [place] [facility] [address] [facility] [id number] [place] [address]- 4143 10 May, 2014 [facility] [place] [facility] [address] [facility] [id number] [place] [address]- 5940 20 Apr, 2014 [facility] [place] [facility] [address] [facility] [id number] [place] [address]- 2526 20 Apr, 2014 [facility] [place] [facility] [address] [facility] [id number] [place] [address]- 3600 11 Apr, 2014 [facility] [place] [facility] [address] [facility] [id number] [place] [address]- 2910 11 Apr, 2014 [facility] [place] [facility] [address] [facility] [id number] [place] [address]- 2548 10 Apr, 2014 [facility] [place] [facility] [address] [id number] [place] [address]- 6314 10 Apr, 2014 [facility] [place] [facility] [address] [facility] [id number] [place] 3906 05 Apr, 2014 [facility] [place] [facility] [address] [facility] [id number] [place] [address]- 6312 Apr, [facility] [place] [facility] [address] [id number] [place] [address]- 8161 Mar, [facility] [place] [facility] [address] [id number] [place] [address]- 3543 Mar, [facility] [place] [facility] [address] [id number] [place] [address]- 0426 Mar, [facility] [place] [facility] [address] [id number] [place] [address]- 7278 Mar, [facility] [place] [facility] [address] [id number] [place] [address]- 7016 Mar, [facility] [place] [facility] [address] [id number] [place] [address]- 4053 Mar, [facility] [place] [facility] [address] [id number] [place] [address]- 8984 Mar, [facility] [place] [facility] [address] [id number] [place] [address]- 1620 Mar, [facility] [place] [facility] [address] [id number] [place] [address]- 9488 Feb, [facility] [place] [facility] [address] [id number] [place] [address]- 4615 Feb, [facility] [place] [facility] [address] [id number] [place] [address]- 4498 Feb, [facility] [place] [facility] [address] [id number] [place] [address]- 0826 Feb, [facility] [place] [facility] [address] [id number] [place] [address]- 5526 Feb, [facility] [place] [facility] [address] [id number] [place] [address]- 9297 Feb, [facility] [place] [facility] [address] [id number] [place] [address]- 7950 Feb, [facility] [place] [facility] [address] [id number] [place] [address]- 2743 Feb, [facility] [place] [facility] [address] [id number] [place] [address]- 2385 Feb, [facility] [place] [facility] [address] [id number] [place] [address]- 4948 Feb, [facility] [place] [facility] [address] [id number] [place] [address]- 1716 Jan, [facility] [place] [facility] [address] [id number] [place] [address]- 4020 Jan, [facility] [place] [facility] [address] [id number] [place] [address]- 4751 Jan, [facility] [place] [facility] [address] [id number] [place] [address]- 0843 Jan, [facility] [place] [facility] [address] [id number] [place] [address]- 8937 Jan, [facility] [place] [facility] [address] [id number] [place] [address]- 1942 Jan, [facility] [place] [facility] [address] [id number] [place] [address]- 8332 Jan, [facility] [place] [facility] [address] [id number] [place] [address]- 3491 Jan, [facility] [place] [facility] [address] [id number] [place] [address]- 3487 Jan, [facility] [place] [facility] [address] [id number] [place] [address]- 1501 Jan, [facility] [place] [facility] [address] [id number] [place] [address]- 5758 Jan, [facility] [place] [facility] [address] [id number] [place] [address]- 8765 Jan, [facility] [place] [facility] [address] [id number] [place] [address]- 8963 Jan, [facility] [place] [facility] [address] [id number] [place] [address]- 9350 Jan, [facility] [place] [facility] [address] [id number] [place] [address]- 1445 Jan, [facility] [place] [facility] [address] [id number] [place] [address]- 4407 Dec, [facility] [place] [facility] [address] [id number] [place] [address]- 2471 Dec, [facility] [place] [facility] [address] [id number] [place] 2687 Dec, [facility] [place] [facility] [address] [id number] [place] [address]- 7483 Dec, [facility] [place] [facility] [address] [id number] [place] [address]- 2107 Dec, [facility] [place] [facility] [address] [id number] [place] [address]- 2767 Dec, [facility] [place] [facility] [address] [id number] [place] [address]- 4272 Dec, [facility] [place] [facility] [address] [id number] [address]- 0270 Dec, [facility] [place] [facility] [address] [id number], [place] [address]- 0773 Nov, [facility] [place] [facility] [address] [id number], [place] [address]- 8682 25 Nov, 2013 [facility] [place] [facility] [address] [id number] [place] [address]- 6244 10 Nov, 2013 [facility] [place] [facility] [address] [id number] [place] [address]- 7946 10 Nov, 2013 [facility] [place] [facility] [address] [id number], [place] [address]- 3735 08 Nov, 2013 [facility] [place] [facility] [address] [id number] [address]- 9360 08 Nov, 2013 [facility] [place] [facility] [address] [id number] [place] [address]- 5608 08 Nov, 2013 [facility] [place] [facility] [address] [id number] [place] [address]- 1666 08 Nov, 2013 [facility] [place] [facility] [address] [id number] [place] [address]- 5661 08 Nov, 2013 [facility] [place] [facility] [address] [id number] [place] [address]- 0681 08 Nov, 2013 [facility] [place] [facility] [address] [id number] [place] [address]- 3357 Nov, 2013 [facility] [place] [facility] [address] [id number] [place] [address]- 4700 Nov, 2013 [facility] [place] [facility] [address] [id number] [place] [address]- 0472 Nov, 2013 [facility] [place] [facility] [address] [id number] [place] [address]- 5506 Nov, 2013 [facility] [place] [facility] [address] [id number] [place] [address]- 6715 Nov, 2013 [facility] [place] [facility] [address] [id number] [place] [address]- 3289 Oct, [facility] [place] [facility] [address] [id number] [place] [address]- 4885 Oct, [facility] [place] [facility] [address] [id number] [place] [address]- 6701 Oct, [facility] [place] [facility] [address] [id number] [place] [address]- 3779 Oct, [facility] [place] [facility] [address] [id number] [place] [address]- 5907 Oct, [facility] [place] [facility] [address] [id number] [place] [address]- 1281 Oct, [facility] [place] [facility] [address] [id number] [place] [address]- 8823 Oct, [facility] [place] [facility] [address] [id number] [place] [address]- 0209 Oct, [facility] [place] [facility] [address] [id number] [place] [address]- 5330 Oct, [facility] [place] [facility] [address] [id number] [place] [address]- 4537 Oct, [facility] [place] [facility] [address] [id number] [place] [address]- 8621 Oct, [facility] [place] [facility] [address] [id number] [place] [address]- 2745 Oct, [facility] [place] [facility] [address] [id number] [place] [address]- 1608 Oct, [facility] [place] [facility] [address] [id number] [place] [address]- 0129 Oct, [facility] [place] [facility] [address] [id number] [place] [address]- 3101 Sep, [facility] [place] [facility] [address] [id number] [place] [address]- 2420 Sep, [facility] [place] [facility] [address] [id number] [place] [address]- 7007 Sep, [facility] [place] [facility] [address] [id number] [place] [address]- 0898 Sep, [facility] [place] [facility] [address] [id number] [place] [address]- 2512 Sep, [facility] [place] [facility] [address] [id number] [place] [address]- 2720 Sep, [facility] [place] [facility] [address] [id number] [place] [address]- 6274 Sep, [facility] [place] [facility] [address] [id number] [place] [address]- 1020 Sep, [facility] [place] [facility] [address] [id number] [place] [address]- 3560 Aug, [facility] [place] [facility] [address] [id number] [place] [address]- 0911 Aug, [facility] [place] [facility] [address] [id number] [place] [address]- 8827 Aug, [facility] [place] [facility] [address] [id number] [place] [address]- 8233 Aug, [facility] [place] [facility] [address] [id number] [place] [address]- 6964 Aug, [facility] [place] [facility] [address] [id number] [place] [address]- 0502 Aug, [facility] [place] [facility] [address] [id number] [place] [address]- 0151 Aug, [facility] [place] [facility] [address] [id number] [place] [address]- 1998 Aug, [facility] [place] [facility] [address] [id number] [place] [address]- 4945 July, [facility] [place] [facility] [address] [id number] [place] [address]- 0611 July, [facility] [place] [facility] [address] [id number] [place] [address]- 0594 July, [facility] [place] [facility] [address] [id number] [place] [address]- 5372 July, [facility] [place] [facility] [address] [id number] [place] [address]- 0305 July, [facility] [place] [facility] [address] [id number] [place] [address]- 4963 July, [facility] [place] [facility] [address] [id number] [place] [address]- 7895 July, [facility] [place] [facility] [address] [id number] [place] [address]- 2871 July, [facility] [place] [facility] [address] [id number] [place] [address]- 0659 Jun, [facility] [place] [facility] [address] [id number] [place] [address]- 8632 Jun, [facility] [place] [facility] [address] [id number] [place] [address]- 0754 Jun, [facility] [place] [facility] [address] [id number] [place] [address]- 0095 Jun, [facility] [place] [facility] [address] [id number] [place] [address]- 1738 Jun, [facility] [place] [facility] [address] [id number] [place] [address]- 6893 Jun, [facility] [place] [facility] [address] [id number] [place] [address]- 2554 Jun, [facility] [place] [facility] [address] [id number] [place] [address]- 7621 Jun, [facility] [place] [facility] [address] [id number] [place] [address]- 8316 Jun, [facility] [place] [facility] [address] [id number] [place] [address]- 1775 Jun, [facility] [place] [facility] [address] [id number] [place] [address]- 2944 Jun, [facility] [place] [facility] [address] [id number] [place] [address]- 9552 Jun, [facility] [place] [facility] [address] [id number] [place] [address]- 0672 May, [facility] [place] [facility] [address] [id number] [place] [address]- 2586 May, [facility] [place] [facility] [address] [id number] [place] [address]- 8264 May, [facility] [place] [facility] [address] [id number] [place] [address]- 3327 26 May, 2013 [facility] [place] [facility] [address] [id number] [place] [address]- 1379 13 May, 2013 [facility] [place] [facility] [address] [id number] [place] [address]- 2806 13 May, 2013 [facility] [place] [facility] [address] [id number] [place] [address]- 0338 12 May, 2013 [facility] [place] [facility] [address] [id number] [place] [address]- 7868 12 May, 2013 [facility] [place] [facility] [address] [id number] [place] [address]- 2018 11 May, 2013 [facility] [place] [facility] [address] [id number] [place] [address]- 6390 11 May, 2013 [facility] [place] [facility] [address] [id number] [place] [address]- 1755 11 May, 2013 [facility] [place] [facility] [address] [id number] [place] [address]- 2606 11 May, 2013 [facility] [place] [facility] [address] [id number] [place] [address]- 8461 10 May, 2013 [facility] [place] [facility] [address] [id number] [place] [address]- 2889 May, [facility] [place] [facility] [address] [id number] [place] [address]- 2151 Apr, [facility] [place] [facility] [address] [id number] [place] [address]- 5982 Apr, [facility] [place] [facility] [address] [id number] [place] [address]- 6625 Apr, [facility] [place] [facility] [address] [id number] [place] [address]- 9884 Apr, [facility] [place] [facility] [address] [id number] [address]- 0454 Apr, [facility] [place] [facility] [address] [id number] [place] [address]- 8144 Apr, [facility] [place] [facility] [address] [id number] [place] [address]- 6235 Mar, [facility] [place] [facility] [address] [id number] [place] [address]- 2209 Mar, [facility] [place] [facility] [address] [id number] [place] [address]- 0122 Mar, [facility] [place] [facility] [address] [id number] [place] [address]- 2970 Mar, [facility] [place] [facility] [address] [id number] [place] [address]- 4707 Mar, [facility] [place] [facility] [address] [id number] [place] [address]- 2976 Mar, [facility] [place] [facility] [address] [id number] [place] [address]- 1473 Mar, [facility] [place] [facility] [address] [id number] [place] [address]- 8259 Mar, [facility] [place] [facility] [address] [id number] [place] [address]- 7795 Mar, [facility] [place] [facility] [address] [id number] [place] [address]- 9235 Mar, [facility] [place] [facility] [address] [id number] [address]- 1171 Mar, [facility] [place] [facility] [address] [id number] [place] [address]- 4181 Mar, [facility] [place] [facility] [address] [id number] [place] [address]- 7276 Mar, [facility] [place] [facility] [address] [id number] [place] [address]- 2462 Mar, [facility] [place] [facility] [address] [id number] [place] [address]- 7078 Feb, 2012 [facility] [place] [facility] [address] [id number] [place] [address]- 6783 Feb, [facility] [place] [facility] [address] [id number] [place] [address]- 0563 Feb, [facility] [place] [facility] [address] [id number] [place] [address]- 6229 Feb, [facility] [place] [facility] [address] [id number] [place] [address]- 1571 Feb, [facility] [place] [facility] [address] [id number] [place] [address]- 3658 Feb, [facility] [place] [facility] [address] [id number] [place] 8173 Feb, [facility] [place] [facility] [address] [id number] [place] [address]- 7434 Feb, [facility] [place] [facility] [address] [id number] [place] [address]- 4032 Feb, [facility] [place] [facility] [address] [id number] [place] [address] Feb, [facility] [place] [facility] [address] [id number] [place] [address] Feb, [facility] [place] [facility] [address] [id number] [place] [address] Feb, [facility] [place] [facility] [address] [id number] [place] [address] Feb, [facility] [place] [facility] [address] [id number] [place] [address] Feb, [facility] [place] [facility] [address] [id number] [place] [address] Feb, [facility] [place] [facility] [address] [id number] [place] [address] 2796 05 Feb, 2012 [facility] [place] [facility] [address] [id number] [place] [address] 24 Dec, 2012 [facility] [place] [facility] [address] [id number] [place] [address] 1996 24 Dec, 2012 [facility] [place] [facility] [address] [id number] [place] [address] 8683 16 Dec, 2012 [facility] [place] [facility] [address] [id number] [place] [address] 9707 16 Dec, 2012 [facility] [place] [facility] [address] [id number] [place] [address] 1473 16 Dec, 2012 [facility] [place] [facility] [address] [id number] [place] [address]- [address]25 16 Dec, 2012 [facility] [place] [facility] [address] [id number] [place] [address] 1604 14 Dec, 2012 [facility] [place] [facility] [address] [id number], [place] [address] 14 Dec, 2012 [facility] [place] [facility] [address] [id number], [place] [address] 10 Dec, 2012 [facility] [place] [facility] [address] [id number], [place] [address] 7077 10 Dec, 2012 [facility] [place] [facility] [address] [id number], [place] [address] 7740 10 Dec, 2012 [facility] [place] [facility] [address] [id number], [place] [address]107 10 Dec, 2012 [facility] [place] [facility] [address] [id number], [place] [address] 03 Dec, 2012 [facility] [place] [facility] [address] [id number], [place] [address] 25 Nov, 2012 [facility] [place] [facility] [address] [id number], [place] [address] 7875 20 Nov, 2012 [facility] [place] [facility] [address] [id number] [place] [address] 6273 18 Nov, 2012 [facility] [address] [id number] [place] [address] 3992 16 Nov, 2012 [facility] [place] [facility] [address] [id number] [place] [address] 8096 12 Nov, 2012 [facility] [place] [facility] [address] [id number] [place] [address] 7352 11 Nov, 2012 [facility] [place] [facility] [address] [id number] [place] [address] 254 05 Nov, 2012 [facility] [place] [facility] [address] [id number] [place] [address] 4250 15 Oct, 2012 [facility] [place] [facility] [address] [id number] [place] [address] Oct, [facility] [address] [id number] [place] [address] 5692 24 Sep, 2012 [facility] [address] [id number] [place] [address] 7624 Sep, [facility] [place] [facility] [address] [id number] [place] [address] 8025 Sep, [facility] [place] [facility] [address] [id number] [place] [address] 3[address] Sep, [facility] [place] [facility] [address] [id number] [place] [address] 1017 15 Sep, 2012 [facility] [place] [facility] [address] [id number] [place] [address] 8821 Sep, [facility] [place] [facility] [address] [id number] [place] [address] 8692 Sep, [facility] [place] [facility] [address] [id number] [place] [address]561 Aug, [facility] [place] [facility] [address] [id number] [place] [address] 8469 Aug, [facility] [place] [facility] [address] [id number] [place] [address] 5709 16 Aug, 2012 [facility] [address] [id number] [place] [address] 7006 Aug, [facility] [address] [id number] [place] [address] 3227 11 Aug, 2012 [facility] [address] [id number] [place] [address]- 6238 Aug, [facility] [address] [id number] [place] [address] 3048 Aug, [facility] [address] [id number] [place] [address] 2096 Aug, [facility] [address] [id number] [place] [address] 270[address] July, [facility] [address] [id number] [place] [address] 4726 July, [facility] [address] [id number] [place] [address] 1071 July, [facility] [address] [id number] [place] [id number] July, [facility] [place] [facility] [address] [id number] [place] [address] 9239 July, [facility] [address] [id number] [place] [address] 9116 Jun, [facility] [place] [facility] [address] [id number] [place] [address] 6832 May, [facility] [place] [facility] [address] [id number] [place] [address]- 6176 14 May, 2012 [facility] [place] [facility] [address] [id number] [place] [address]- 4638 04 May, 2012 [facility] [place] [facility] [address] [id number] [place] [address] 7456 Apr, [facility] [address] [id number] [place] [address] 5419 Apr, [facility] [address] [id number] [place] [address] 2069 Apr, [facility] [address] [id number] [place] [address] 3293 Mar, [facility] [address] [id number] [place] [address]- 4717 Mar, [facility] [address] [id number] [place] [address] 3612 Mar, [facility] [address] [id number] [place] [address] 0713 Mar, [facility] [address] [id number] [place] [address] 1630 Mar, [facility] [address] [id number] [place] [address]- 7811 Mar, [facility] [address] [id number] [place] [address] 9385 Mar, [facility] [address] [address] [id number] [place] [address] Feb, [facility] [address] [id number] [place] [address] 31 Feb, 2012 [facility] [address] [id number] [place] [address] 18 Feb, 2012 [facility] [address] [id number] [place] [address] 9812 18 Feb, 2012 [facility] [place] [facility] [address] [id number] [place] [address] 17 Feb, 2012 [facility] [address] [id number] [place] [address]40 17 Feb, 2012 [facility] [place] [facility] [address] [id number] [place] [address] Feb, [facility] [place] [facility] [address] [id number] [place] [address] Feb, [facility] [place] [facility] [address] [id number] [place] [address] Jan, [facility] [place] [facility] [address] [id number] [place] [address] 2897 Jan, [facility] [place] [facility] [address] [id number] [place] [address] Jan, [facility] [place] [facility] [address] [id number] [place] [address]- 3449 Jan, [facility] [place] [facility] [address] [id number] [place] [address]- 5[address] Jan, [facility] [place] [facility] [address] [id number] [place] [address]246 Jan, [facility] [place] [facility] [address] [id number] [place] [address] 9945 Jan, [facility] [place] [facility] [address] [id number] [place] [address]- [address] Jan, [facility] [place] [facility] [address] [id number] [place] [address]227 Jan, [facility] [place] [facility] [address] [id number] [place] [address]- 1847 Jan, [facility] [place] [facility] [address] [id number] [place] [address] 54[address] Jan, [facility] [place] [facility] [address] [id number] [place] [address]- 4806 Jan, [facility] [place] [facility] [address] [id number] [place] [address] 1342 Jan, [facility] [place] [facility] [address] [id number] [place] [address]- 8893 Jan, [facility] [place] [facility] [address] [id number] [place] [address]- 5540 Jan, [facility] [place] [facility] [address] [id number] [place] [address]- 8984 Jan, [facility] [place] [facility] [address] [id number] [place] [address]- [address]99 Dec, [facility] [place] [facility] [address] [id number] [place] [address] 0382 Dec, [facility] [place] [facility] [address] [id number] [place] [address]- 0514 Dec, [facility] [place] [facility] [address] [id number] [place] [address]- 5708 Dec, [facility] [place] [facility] [address] [id number] [place] [address]- 1740 Dec, [facility] [place] [facility] [address] [id number] [place] [address]- 7204 Dec, [facility] [place] [facility] [address] [id number] [place] [address]- 9436 Dec, [facility] [place] [facility] [address] [id number] [place] [address]- 0880 Dec, [facility] [place] [facility] [address] [id number], [place] [address] Dec, [facility] [place] [facility] [address] [id number], [place] [address] 05 Dec, 2011 [facility] [place] [facility] [address] [id number] [place] [address] 5382 18 Nov, 2011 [facility] [place] [facility] [address] [id number], [place] [address] 13 Nov, 2011 [facility] [place] [facility] [address] [id number] [place] [address] 0909 24 Oct, 2011 [facility] [place] [facility] [address] [id number] [place] [address] 3065 Oct, [facility] [place] [facility] [address] [id number] [place] [address]- 5533 Oct, [facility] [place] [facility] [address] [id number] [place] [address] 4153 Oct, [facility] [place] [facility] [address] [id number] [place] [address]- 5486 Oct, [facility] [place] [facility] [address] [id number] [place] [address]- 5184 Oct, [facility] [place] [facility] [address] [id number] [place] [address]- 3002 Oct, [facility] [place] [facility] [address] [id number] [place] [address]- [address]70 Sep, [facility] [place] [facility] [address] [id number] [place] [address] 4397 Aug, [facility] [place] [facility] [address] [id number] [place] [address]- 4583 Aug, [facility] [place] [facility] [address] [id number] [place] [address]- 6812 Aug, [facility] [place] [facility] [address] [id number] [place] [address]- 6026 Aug, [facility] [place] [facility] [address] [id number] [place] [address]- 6651 Aug, [facility] [place] [facility] [address] [id number] [place] [address]- 3647 July, [facility] [place] [facility] [address] [id number] [place] [address]- 5869 July, [facility] [place] [facility] [address] [id number] [place] [address]- 5694 July, [facility] [place] [facility] [address] [id number] [place] [address]- 4390 Jun, [facility] [place] [facility] [address] [id number] [place] [address]- 0860 05 Jun, 2011 [facility] [place] [facility] [address] [id number] [place] [address]- 4736 Jun, [facility] [place] [facility] [address] [id number] [place] [address]- 8296 Jun, [facility] [place] [facility] [address] [id number] [place] [address] 30 May, 2011 [facility] [place] [facility] [address] [id number] [place] [address]51 30 May, 2011 [facility] [place] [facility] [address] [id number] [place] [address]- 3553 29 May, 2011 [facility] [place] [facility] [address] [id number] [place] [address]- 6747 May, [facility] [place] [facility] [address] [id number] [place] [address]- 8598 May, [facility] [place] [facility] [address] [id number] [place] [address]- 8988 May, [facility] [place] [facility] [address] [id number] [place] [address]- 4044 May, [facility] [place] [facility] [address] [id number] [place] [address]- 2072 May, [facility] [place] [facility] [address] [id number] [place] [address]- 2126 08 May, 2011 [facility] [place] [facility] [address] [id number] [place] [address]- 6977 05 May, 2011 [facility] [place] [facility] [address] [id number] [place] [address]- 5627 May, [facility] [place] [facility] [address] [id number] [place] [address]- 9696 May, [facility] [place] [facility] [address] [id number] [place] [address]- 2284 31 Mar, 2011 [facility] [place] [facility] [address] [id number] [place] [address]- 9919 Mar, [facility] [place] [facility] [address] [id number] [place] [address]- 9296 28 Feb, 2011 [facility] [place] [facility] [address] [id number] [place] [address] Feb, [facility] [place] [facility] [address] [id number] [place] [address]- 7395 20 Feb, 2011 [facility] [place] [facility] [address] [id number] [place] [address]- 7368 15 Feb, 2011 [facility] [place] [facility] [address] [id number] [place] [address]- 1234 13 Feb, 2011 [facility] [place] [facility] [address] [id number] [place] [address]- 9883 Feb, [facility] [place] [facility] [address] [id number] [place] [address]- 4551 Feb, [facility] [place] [facility] [address] [id number] [place] [address]- 3170 Jan, [facility] [place] [facility] [address] [id number] [place] [address]- 3176 Jan, [facility] [place] [facility] [address] [id number] [place] [address]- 5731 Jan, [facility] [place] [facility] [address] [id number], [place] [address]- 1489 17 Jan, 2011 [facility] [place] [facility] [address] [id number] [place] [address]- 0370 07 Jan, 2011 [facility] [place] [facility] [address] [id number] [place] [address]- 8635 03 Jan, 2011 [facility] [place] [facility] [address] [id number] [place] [address]- 9505 27 Dec, 2010 [facility] [place] [facility] [address] [id number] [place] [address]- 1819 27 Dec, 2010 [facility] [address] [id number] [place] [address]- 6477 Dec, [facility] [address] [id number] [place] [address]- 1236 July, [facility] [address] [id number] [place] [address]- 0730 July, [facility] [address] [id number] [place] [address]- 2547 Feb, [facility] [address] [id number] [place] [address]- 3074 Jan, [facility] [address] [id number] [place] [address]- 8139 Dec, [facility] [address] [id number] [place] [address]- 3246 Dec, [facility] [address] [id number] [place] [address]- 0661 15 Sep, 2009 [facility] [address] [id number] [place] [address]- 7174 Aug, [facility] [address] [id number] [place] [address]- 6682 Jun, [facility] [address] [id number] [place] [address]- 4276 Jun, [facility] [address] [id number] [place] [address]- 3630 Jan, [facility] [place] [facility] [address] [id number] [place] [address]- 0962 Jan, [facility] [place] [facility] [address] [id number] [place] [address]- 3347 Jan, [facility] [address] [id number] [place] [address]- 2662 Jan, [facility] [address] [id number] [address] Dec, [facility] [id number], [place] [address] 2546 Dec, [facility] [id number], [place] [address] 2546 Dec, [facility] [id number], [place] [address]- 25[address] Nov, [facility] [id number], [place] [address] 2544 July, [facility] [id number], [place] [address] 2546 May, [facility] [id number], [place] [address] 2546 Apr, [facility] [id number], [place] [address] 2546 Feb, [facility] [address] [id number], [place] [address] 5410 Dec, IMMUNIZATIONS No Known Immunizations SOCIAL HISTORY Never Assessed REASON FOR VISIT PALS IN-Victoza/[place] PLAN OF CARE VITAL SIGNS MEDICATIONS Unknown [...]
--- OUTSIDE RECORDS SUMMARY | 2018-06-14 14:35 | XMS REPORT ---
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 Active 901461602 Problem Hyperlipidemia, unspecified E78.5 Active 53984593 Problem Type 2 diabetes mellitus with complication E11.8 Active 839240597 Problem New daily persistent headache G44.52 Active 455698872 Problem Acute bilateral low back pain with right-sided sciatica M54.41 Active 961370370 Problem Obesity, unspecified 278.00 Active 016935712 Problem Hyperlipidemia 272.4 Active 89533546 Problem Post laminectomy syndrome M96.1 Active 36218947 Problem Eye exam normal Z01.00 Active 686651760 Problem 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 Active 46272018 Problem Non compliance with medical treatment Z91.19 Active 5281686 Problem Bipolar disorder, in partial remission, most recent episode manic F31.73 Active 17080777 Problem Diabetes E11.9 Active 659890147 Problem Extreme poverty Z59.5 Active 40884040 Problem Irritable bowel syndrome with diarrhea K58.0 Active 983713330 ALLERGIES No Information ENCOUNTERS Encounter Location Date Diagnosis [facility] [place] [address] [facility] [id number] [address] Nov, [facility] [place] [address] [facility] [id number], [place] [address] Nov, [facility] [place] [id number] [place] [address] 68585- 7618 Nov, [place] [address] [place] [id number] [place] [address] 72305- 9777 Nov, [place] [address] [place] [id number] [place] [address] 88983- 6428 Oct, Bipolar 1 disorder F31.9 ; 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 and Extreme poverty Z59.5 [place] [address] [place] [id number] [place] [address] 76858- 8954 Oct, Type 2 diabetes mellitus with hyperglycemia E11.65 ; assisted current use of insulin Z79.4 and Other acute gastritis without hemorrhage K29.00 [place] [id number] [place] [address] 69600- 0506 Oct, Bipolar 1 disorder F31.9 ; 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 and Extreme poverty Z59.5 [place] [id number] [place] [address] 28919- 5398 Sep, Diarrhea, unspecified R19.7 and Vomiting, unspecified R11.10 [place] [id number] [place] [address] 51845- 6705 Aug, Type 2 diabetes mellitus with complication E11.8 [place] [id number] [place] [address] 31971- 7492 Aug, [place] [address] [id number] [place] [address] 79608- 1547 Aug, Bipolar 1 disorder F31.9 ; 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 and Extreme poverty Z59.5 [place] [id number] [place] [address] 52265- 1461 Aug, 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 and Bipolar disorder, in partial remission, most recent episode manic F31.73 [place] [id number] [place] [address] 76040- 6030 14 Aug, 2017 Bipolar 1 disorder F31.9 [place] [address] [address] Aug, [facility] [place] [address] [place] [id number] [place] [address] 58747- 4651 Aug, [facility] [place] [address] [place] [id number] [place] [address] 92950- 4391 Aug, Bipolar 1 disorder F31.9 ; 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 and Extreme poverty Z59.5 [place] [address] [place] [id number] [place] [address] 68328- 7417 July, Type 2 diabetes mellitus with complication E11.8 [place] [address] [id number] [place] [address] 79234- 1200 July, Bipolar 1 disorder F31.9 ; 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 and Extreme poverty Z59.5 [place] [address] [place] [id number] [place] [address] 60907- 2850 Jun, Bipolar 1 disorder F31.9 ; 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 and Extreme poverty Z59.5 [place] [address] [place] [address] 32347- 8400 Jun, Bipolar 1 disorder F31.9 ; 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 and Extreme poverty Z59.5 [place] [address] [place] [address] 95268- 0093 Jun, Bipolar 1 disorder F31.9 ; 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 and Extreme poverty Z59.5 [place] [address] [place] [address] 19739- 8750 May, Urinary tract infection without hematuria, site unspecified N39.0 [place] [address] [place] [id number] [place] [address] 82801- 1159 May, Bipolar 1 disorder F31.9 ; 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 and Extreme poverty Z59.5 [place] [address] [place] [address] 02095- 2717 Apr, Diabetes E11.9 and Breast cancer screening Z12.31 [place] [address] [id number] [place] [address] 09680- 4559 Apr, Bipolar 1 disorder F31.9 and 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 [place] [address] [place] [id number] [place] [address] 45800- 5754 Mar, Bipolar 1 disorder F31.9 ; 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 and Extreme poverty Z59.5 [place] [address] [place] [id number] [place] [address] 58264- 7087 Mar, New daily persistent headache G44.52 ; Leg pain 729.5 and History of carpal tunnel release Z98.890 [place] [address] [place] [id number] [place] [address] 49505- 9465 Mar, Hyperlipidemia, unspecified E78.5 [place] [address] 46950- 2566 Mar, Bipolar 1 disorder F31.9 ; 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 and Extreme poverty Z59.5 [place] [address] [place] [id number] [place] [address] 67171- 8198 Feb, Bipolar 1 disorder F31.9 ; 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 and Extreme poverty Z59.5 [place] [address] [place] [id number] [place] [address] 95395- 6278 Feb, Diabetes E11.9 [place] [address] [place] [id number] [place] [address] 91569- 9304 Feb, Viral syndrome B34.9 [place] [address] [place] [id number] [place] [address] 26855- 0895 Jan, Other viral agents as the cause of diseases classified elsewhere B97.89 and Acute upper respiratory infection, unspecified J06.9 [place] [address] [place] [id number] [place] [address] 39570- 7647 16 Jan, 2017 Bipolar 1 disorder F31.9 and 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 [place] [address] [place] [address] 65975- 8257 Jan, Bipolar 1 disorder F31.9 ; 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 and Extreme poverty Z59.5 [place] [address] [place] [id number] [place] [address] 99971- 1021 Dec, Diabetes E11.9 [place] [address] [place] [id number] [place] [address] 48114- 7663 Dec, Diabetes E11.9 and Encounter for immunization Z23 [place] [address] [place] [id number] [place] [address] 27150- 2007 Dec, Bipolar 1 disorder F31.9 ; 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 and Extreme poverty Z59.5 [place] [address] [place] [address] 67267- 5744 Oct, 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 and Bipolar 1 disorder F31.9 [place] [address] [place] [id number] [place] [address] 97879- 3309 Oct, Bipolar 1 disorder F31.9 ; 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 and Extreme poverty Z59.5 [place] [address] [place] [address] 78717- 6225 Oct, Back pain M54.9 [facility] [place] [address] [place] [address] 63926- 5567 Oct, 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 and Type 2 diabetes mellitus with complication E11.8 [facility] [place] [address] [place] [id number] [place] [address] 83529- 6488 Sep, Bipolar 1 disorder F31.9 ; 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 and Extreme poverty Z59.5 [place] [address] [place] [id number] [place] [address] 38529- 2499 Sep, 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 and Bipolar 1 disorder F31.9 [place] [address] [place] [id number] [place] [address] 86276- 7607 Sep, Bipolar 1 disorder F31.9 ; 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 and Extreme poverty Z59.5 [place] [address] [id number] [place] [address] 24631- 4631 Aug, Diabetes E11.9 ; Hyperlipidemia, unspecified E78.5 and Lumbar radiculopathy M54.16 [place] [address] [place] [id number] [place] [address] 74754- 9914 Aug, Bipolar 1 disorder F31.9 ; 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 and Extreme poverty Z59.5 [place] [address] [id number] [place] [address] 14071- 7795 Aug, [place] [address] [place] [id number] [place] [address] 95364- 8069 Aug, [place] [address] [place] [id number] [place] [address] 97249- 3585 Aug, [place] [address] [place] [id number] [place] [address] 47383- 8617 July, [place] [address] [place] [id number] [place] [address] 22034- 1797 July, Acute bilateral low back pain with right-sided sciatica M54.41 [place] [address] [place] [address] 85388- 6741 July, Bipolar 1 disorder F31.9 ; 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 and Extreme poverty Z59.5 [place] [address] [place] [id number] [place] [address] 77934- 6501 July, Back pain M54.9 and Diabetes E11.9 [place] [address] [id number] [place] [address] 30420- 9256 Jun, Bipolar 1 disorder F31.9 ; 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 and Extreme poverty Z59.5 [place] [address] [place] [id number] [place] [address] 59641- 1342 Jun, Bipolar 1 disorder F31.9 ; 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 and Extreme poverty Z59.5 [place] [address] [place] [address] 01675- 0054 May, Visit for pelvic exam Z01.419 ; Acute vaginitis N76.0 and Diabetes E11.9 [place] [address] [place] [id number] [place] [address] 21286- 3474 May, Bipolar 1 disorder F31.9 ; 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 and Extreme poverty Z59.5 [place] [address] [place] [address] 38644- 2820 May, [place] [address] [place] [id number] [place] [address] 16048- 5827 May, [place] [address] [place] [id number] [place] [address] 88874- 1053 May, Bipolar 1 disorder F31.9 ; 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 and Extreme poverty Z59.5 [place] [address] [id number] [place] [address] 43106- 4799 May, Hyperlipidemia, unspecified E78.5 [place] [address] [place] [address] 09375- 4400 13 Feb, 2017 Breast cancer screening Z12.39 [place] [address] [id number] [place] [address] 58927- 8860 Mar, [place] [address] 31652- 0336 Mar, Bipolar disorder, current episode mixed, unspecified F31.60 [place] [address] 05701- 9126 Mar, Bipolar 1 disorder F31.9 ; 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 and Extreme poverty Z59.5 [place] [address] 00282- 9947 Feb, Acute nasopharyngitis J00 [place] [address] 98520- 6011 27 Feb, 2016 Dental examination Z01.20 [place] [address] 95532- 5489 21 Feb, 2016 Dental cavities K02.9 and Chronic periodontitis, unspecified K05.30 [place] [address] 49468- 4675 13 Feb, 2016 Low back pain M54.5 and Extreme poverty Z59.5 [place] [address] [place] [id number] [place] [address] 13212- 6712 Feb, [place] [address] 23070- 6172 05 Feb, 2016 Routine gynecological examination V72.31 ; Breast cancer screening Z12.39 and Herpes simplex type 1 infection B00.9 [place] [address] [id number] [place] [address] 65785- 9726 Feb, Diabetes E11.9 [place] [address] 78135- 1364 Feb, Encounter for dental examination and cleaning without abnormal findings Z01.20 [place] [address] 60954- 9949 Jan, Hyperlipidemia, unspecified E78.5 [place] [address] [place] [id number] [place] [address] 41921- 2562 Jan, Bipolar 1 disorder F31.9 ; 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 and Extreme poverty Z59.5 [place] [address] [place] [id number] [place] [address] 16492- 9591 Jan, Diabetes E11.9 [place] [address] 786379- 9740 Jan, Diabetes E11.9 [place] [address] 00043- 9766 14 Dec, 2015 Bipolar 1 disorder F31.9 ; 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 and Extreme poverty Z59.5 [place] [address] [place] [id number] [place] [address] 43868- 7716 13 Dec, 2015 Bipolar disorder, current episode mixed, unspecified F31.60 and 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 [place] [address] [id number] [place] [address] 58741- 6614 16 Nov, 2015 Bipolar 1 disorder F31.9 ; 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 ; Extreme poverty Z59.5 and Non compliance with medical treatment Z91.19 [place] [address] [id number] [place] [address] 25339- 5673 Oct, [place] [address] [id number] [place] [address] 77540- 0890 Oct, Dental caries K02.9 [place] [address] [id number] [place] [address] 98470- 8610 Oct, Low back pain M54.5 and Other chronic pain G89.29 [place] [address] [place] [id number] [place] [address] 35588- 0465 Oct, Bipolar 1 disorder F31.9 ; 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19 [place] [address] [place] [id number] [place] [address] 25103- 8878 Oct, [place] [address] [place] [id number] [place] [address] 05028- 6517 Sep, Type 2 diabetes mellitus with complication E11.8 [place] [address] [place] [id number] [place] [address] 09383- 7776 Sep, Bipolar disorder, current episode mixed, unspecified F31.60 [place] [address] [place] [id number] [place] [address] 22511- 3599 Sep, Bipolar disorder, current episode mixed, unspecified F31.60 [place] [address] [place] [address] 48512- 0469 Sep, Bipolar disorder, in partial remission, most recent episode manic F31.73 ; 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 ; Extreme poverty Z59.5 and Non compliance with medical treatment Z91.19 [place] [address] [place] [address] 81036- 6135 Aug, Bipolar disorder, in partial remission, most recent episode manic F31.73 ; 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 ; Extreme poverty Z59.5 and Non compliance with medical treatment Z91.19 [place] [address] [place] [address] 62099- 9849 Aug, Bipolar disorder, in partial remission, most recent episode manic F31.73 ; 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 ; Extreme poverty Z59.5 and Non compliance with medical treatment Z91.19 [place] [address] [place] [address] 78134- 7332 Aug, [place] [address] [place] [address] 56108- 4377 July, Bipolar disorder, in partial remission, most recent episode manic F31.73 ; 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 ; Extreme poverty Z59.5 and Non compliance with medical treatment Z91.19 [place] [address] [place] [address] 33344- 5949 July, Bipolar disorder, current episode mixed, unspecified F31.60 [place] [address] [place] [id number] [place] [address] 22704- 6573 July, Bipolar disorder, in partial remission, most recent episode manic F31.73 ; 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 ; Extreme poverty Z59.5 and Non compliance with medical treatment Z91.19 [place] [address] [place] [address] 78470- 4944 July, assisted current 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 Z79.891 and Chronic pain G89.29 [place] [address] [place] [address] 35296- 3160 Jun, assisted current 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 Z79.891 and Bipolar 1 disorder F31.9 [place] [address] [place] [address] 50081- 8325 Jun, [place] [address] [place] [id number] [place] [address] 42451- 0054 Jun, [place] [address] [place] [id number] [place] [address] 70195- 2785 Jun, [place] [address] [place] [id number] [place] [address] 57163- 6032 Jun, Bipolar disorder, in partial remission, most recent episode manic F31.73 ; 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 and Non compliance with medical treatment Z91.19 [place] [address] [place] [address]- 1848 May, Bipolar disorder, in partial remission, most recent episode manic F31.73 ; 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 and Non compliance with medical treatment Z91.19 [place] [address] [place] [id number] [place] [address] 24754- 9473 May, Bipolar disorder, in partial remission, most recent episode manic F31.73 [place] [address] [place] [id number] [place] [address] 10168- 6483 May, Diabetes E11.9 and Chronic pain G89.29 [place] [address] [place] [id number] [place] [address] 98235- 3713 May, [place] [address] [place] [id number] [place] [address] 55252- 1720 May, Bipolar disorder, in partial remission, most recent episode manic F31.73 ; Non compliance with medical treatment Z91.19 and 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 [place] [address] [place] [id number] [place] [address] 82343- 1954 May, Type 2 diabetes mellitus with complication E11.8 and Back pain M54.9 [place] [address] [place] [address] 83603- 5893 May, Bipolar disorder, in partial remission, most recent episode manic F31.73 and 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 [place] [address] [place] [address] 21851- 4731 Apr, [place] [address] [id number] [place] [address] 98045- 0651 Apr, [place] [address] [place] [address] 86983- 7478 Apr, [place] [address] [place] [address] [place] [address]- 0896 09 Apr, 2015 Diabetes E11.9 ; Irritable bowel syndrome with diarrhea K58.0 and Lumbar radiculopathy M54.16 [place] [address] [place] [address]- 8686 02 Apr, 2015 Breast screening Z12.[address] 65829- 0128 02 Apr, 2015 Bipolar disorder, in partial remission, most recent episode manic F31.73 ; Non compliance with medical treatment Z91.19 and 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 [place] [address] [place] 163811- 3699 Mar, Edema, unspecified type R60.9 and Type 2 diabetes mellitus with complication E11.[address] 62667- 2031 Mar, Bipolar disorder, in partial remission, most recent episode manic F31.73 ; Non compliance with medical treatment Z91.19 ; 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 and Extreme poverty Z59.5 [place] [address] 67523- 9642 Mar, Bipolar disorder, current episode mixed, unspecified F31.60 ; 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 ; Extreme poverty Z59.5 and Generalized anxiety disorder F41.1 [place] [address] [id number] [place] [address] 36965- 7269 Mar, Bipolar disorder, in partial remission, most recent episode manic F31.73 ; 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 and Extreme poverty Z59.5 [place] [address] 77187- 0986 Feb, Bipolar disorder, in partial remission, most recent episode manic F31.73 ; 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 and Extreme poverty Z59.5 [place] [address] 89080- 2030 Feb, Bipolar disorder, in partial remission, most recent episode manic F31.73 ; 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 and Extreme poverty Z59.5 [place] [address] [place] [id number] [place] [address] 67361- 6522 Feb, [place] [address] [id number] [place] [address] 15693- 6657 Jan, Type 2 diabetes mellitus with complication E11.8 and Petechiae R23.3 [place] [id number] [place] [address] 36896- 2701 Jan, Type 2 diabetes mellitus with complication E11.8 ; Edema, unspecified R60.9 ; Petechiae R23.3 and Diabetes E11.9 [place] [address] [id number] [place] [address] 94836- 3546 Jan, Bipolar disorder, in partial remission, most recent episode manic F31.73 ; 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 and Extreme poverty Z59.5 [place] [address] [id number] [place] [address] 31063- 7406 Jan, Bipolar disorder, in partial remission, most recent episode manic F31.73 ; 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 and Extreme poverty Z59.5 [place] [id number] [place] [address] 40033- 5444 Dec, Bipolar disorder, in partial remission, most recent episode manic F31.73 [place] [id number] [place] [address] 37293- 3934 Dec, Edema, due to unspecified malnutrition type, unspecified edema R60.9 and Essential hypertension I10 [place] [address] [place] 0[address]58251- 1315 Dec, Bipolar disorder, in partial remission, most recent episode manic F31.73 [place] [address] [id number] [place] [address] 84030- 8394 Nov, Bipolar I disorder, most recent episode (or current) mixed, unspecified 296.60 [facility] [place] [address] [address]- 4958 Nov, Stress incontinence, female 625.6 ; Back pain 724.5 and Leg pain 729.5 [facility] [place] [address] [address]- 8836 Nov, Generalized anxiety disorder 300.02 and Bipolar II disorder 296.89 [facility] [place] [id number] [place] [address] 59965- 2399 Nov, Bipolar I disorder, most recent episode (or current) mixed, unspecified 296.60 [facility], [place] [id number] [place] [address] 75528- 6512 Oct, [facility] [place] [id number] [place] [address] 26502- 6236 Oct, [facility] [place] [id number] [place] [address] 30156- 3266 Oct, [facility] [place] [id number] [place] [address] 70698- 0943 Oct, Bipolar I disorder, most recent episode (or current) mixed, unspecified 296.60 [facility] [place] [address] [address] 7[address] Sep, Diabetes 250.00 [facility] [place] [id number] [place] [address] 28717- 9892 Sep, Bipolar I disorder, most recent episode (or current) mixed, unspecified 296.60 [facility] [place] [id number] [address] 4626 Sep, [facility] [place] [id number] [place] [address] 60957- 3039 Sep, [facility] [place] [id number] [place] [address] 74821- 4906 Sep, Bipolar I disorder, most recent episode (or current) mixed, unspecified 296.60 [facility] [place] [address], [place] [address] 3115 Sep, Bipolar I disorder, most recent episode (or current) mixed, unspecified 296.60 [facility] [place] [address], [place] [address]- 1375 Sep, [facility] [place] [id number] 9718 Sep, Anxiety 300.00 ; Diabetes 250.00 and Hyperlipidemia 272.4 [facility] [place] [id number] [place] [address] 46481- 4612 Aug, [facility] [place] [id number] [place] [address] 94315- 1653 Aug, [facility], [place] [id number] [address]- 9642 Aug, [facility] [place] [id number] [place] [address] 75607- 1446 Aug, Bipolar I disorder, most recent episode (or current) mixed, unspecified 296.60 [facility] [place] [id number] [place] [address] 83074- 9401 Aug, Generalized anxiety disorder 300.02 and Bipolar II disorder 296.89 [facility], [place] [address] [address]- 8722 July, Bipolar I disorder, most recent episode (or current) mixed, unspecified 296.60 [facility], [place] [address] [address]- 3802 July, Cough 786.2 [facility], [place] [id number] [place] [address] 87010- 3737 July, Bipolar I disorder, most recent episode (or current) mixed, unspecified 296.60 [facility] [place] [address] [address]- 9488 Jun, Diabetes 250.00 [facility] [place] [address] [id number] [place] [address]- 7096 14 Jun, 2014 [facility] [place] [facility] [address] [id number] [place] [address]- 2419 13 Jun, 2014 [facility] [place] [facility] [address] [id number] [place] [address]- 2568 24 May, 2014 [facility] [place] [facility] [address] [id number] [place] [address]- 0534 24 May, 2014 [facility] [place] [facility] [address] [id number] [place] [address] 2547 10 May, 2014 [facility] [place] [facility] [address] [id number] [place] [address]- 7066 10 May, 2014 [facility] [place] [facility] [address] [facility] [id number] [place] [address]- 7023 10 May, 2014 [facility] [place] [facility] [address] [facility] [id number] [place] [address]- 1325 10 May, 2014 [facility] [place] [facility] [address] [facility] [id number] [place] [address]- 0866 20 Apr, 2014 [facility] [place] [facility] [address] [facility] [id number] [place] [address]- 6764 20 Apr, 2014 [facility] [place] [facility] [address] [facility] [id number] [place] [address]- 9967 11 Apr, 2014 [facility] [place] [facility] [address] [facility] [id number] [place] [address] 2545 11 Apr, 2014 [facility] [place] [facility] [address] [facility] [id number] [place] [address] 2541 10 Apr, 2014 [facility] [place] [facility] [address] [facility] [id number] [place] 5745 10 Apr, 2014 [facility] [place] [facility] [address] [facility] [id number] [place] [address] 2546 05 Apr, 2014 [facility] [place] [facility] [address] [facility] [id number] [place] [address]- 2703 Apr, [facility] [place] [facility] [address] [id number] [place] [address]- 7508 Mar, [facility] [place] [facility] [address] [id number] [place] [address]- 2645 Mar, [facility] [place] [facility] [address] [facility] [id number] [place] [address]- 5707 Mar, [facility] [place] [facility] [address] [id number] [place] [address]- 0429 Mar, [facility] [place] [facility] [address] [id number] [place] [address]- 9517 Mar, [facility] [place] [facility] [address] [id number] [place] [address]- 4172 Mar, [facility] [place] [facility] [address] [id number] [place] [address]- 9903 Mar, [facility] [place] [facility] [address] [id number] [place] [address]- 8732 Mar, [facility] [place] [facility] [address] [id number] [place] [address]- 1524 Feb, [facility] [place] [facility] [address] [id number] [place] [address]- 6277 Feb, [facility] [place] [facility] [address] [id number] [place] [address]- 8574 Feb, [facility] [place] [facility] [address] [id number] [address]- 2624 Feb, [facility] [place] [facility] [address] [id number] [place] [address]- 4104 Feb, [facility] [place] [facility] [address] [id number] [place] [address]- 4900 Feb, [facility] [place] [facility] [address] [id number] [place] [address]- 5319 Feb, [facility] [place] [facility] [address] [id number] [place] [address]- 2447 Feb, [facility] [place] [facility] [address] [id number] [place] [address]- 3568 Feb, [facility] [place] [facility] [address] [id number] [place] [address]- 7702 Feb, [facility] [place] [facility] [address] [id number] [place] [address]- 1826 Jan, [facility] [place] [facility] [address] [id number] [place] [address]- 4086 Jan, [facility] [place] [facility] [address] [id number] [place] [address]- 0962 Jan, [facility] [place] [facility] [address] [id number] [place] [address]- 7783 Jan, [facility] [place] [facility] [address] [id number] [place] [address]- 2092 Jan, [facility] [place] [facility] [address] [id number] [place] [address]- 5133 Jan, [facility] [place] [facility] [address] [id number] [place] [address]- 3376 Jan, [facility] [place] [facility] [address] [id number] [place] [address]- 6713 Jan, [facility] [place] [facility] [address] [id number] [place] [address]- 5339 Jan, [facility] [place] [facility] [address] [id number] [place] [address]- 2736 Jan, [facility] [place] [facility] [address] [id number] [place] [address]- 7826 Jan, [facility] [place] [facility] [address] [id number] [place] [address]- 7827 Jan, [facility] [place] [facility] [address] [id number] [place] [address]- 2176 Jan, [facility] [place] [facility] [address] [id number] [place] [address]- 1187 Jan, [facility] [place] [facility] [address] [id number] [place] [address]- 7991 Jan, [facility] [place] [facility] [address] [id number] [place] [address]- 8319 Dec, [facility] [place] [facility] [address] [id number] [place] [address]- 6503 Dec, [facility] [place] [facility] [address] [id number] [place] [address]- 3447 Dec, [facility] [place] [facility] [address] [id number] [place] [address]- 0069 Dec, [facility] [place] [facility] [address] [id number] [place] [address]- 7588 Dec, [facility] [place] [facility] [address] [id number] [place] [address]- 3550 Dec, [facility] [place] [facility] [address] [id number] [place] [address]- 0369 Dec, [facility] [place] [facility] [address] [id number] [place] [address]- 3112 Dec, [facility] [place] [facility] [address] [id number] [place] [address]- 0212 Nov, [facility] [place] [facility] [address] [id number], [place] [address]- 0647 25 Nov, 2013 [facility] [place] [facility] [address] [id number] [place] [address]- 2567 10 Nov, 2013 [facility] [place] [facility] [address] [id number] [place] [address]- 0516 10 Nov, 2013 [facility] [place] [facility] [address] [id number] [place] 4050 08 Nov, 2013 [facility] [place] [facility] [address] [id number] [place] [address]- 7887 08 Nov, 2013 [facility] [place] [facility] [address] [id number] [place] [address]- 1448 08 Nov, 2013 [facility] [place] [facility] [address] [id number] [place] [address]- 3801 08 Nov, 2013 [facility] [place] [facility] [address] [id number] [place] [address]- 1491 08 Nov, 2013 [facility] [place] [facility] [address] [id number] [place] [address]- 0351 08 Nov, 2013 [facility] [place] [facility] [address] [id number] [place] [address]- 5641 Nov, 2013 [facility] [place] [facility] [address] [id number] [place] [address]- 0715 Nov, 2013 [facility] [place] [facility] [address] [id number] [place] [address]- 8707 Nov, 2013 [facility] [place] [facility] [address] [id number] [place] [address]- 0241 Nov, 2013 [facility] [place] [facility] [address] [id number] [place] [address]- 6889 Nov, 2013 [facility] [place] [facility] [address] [id number] [place] [address]- 1663 Oct, [facility] [place] [facility] [address] [id number] [place] [address]- 0086 Oct, [facility] [place] [facility] [address] [id number] [place] [address]- 5607 Oct, [facility] [place] [facility] [address] [id number] [place] [address]- 4292 Oct, [facility] [place] [facility] [address] [id number] [place] [address]- 0240 Oct, [facility] [place] [facility] [address] [id number] [place] [address]- 9197 Oct, [facility] [place] [facility] [address] [id number] [place] [address]- 4490 Oct, [facility] [place] [facility] [address] [id number] [place] [address]- 8598 Oct, [facility] [place] [facility] [address] [id number] [place] [address]- 9829 Oct, [facility] [place] [facility] [address] [id number] [place] [address]- 9182 Oct, [facility] [place] [facility] [address] [id number] [place] [address]- 5347 Oct, [facility] [place] [facility] [address] [id number] [place] [address]- 8993 Oct, [facility] [place] [facility] [address] [id number] [place] [address]- 6425 Oct, [facility] [place] [facility] [address] [id number] [place] [address]- 9957 Oct, [facility] [place] [facility] [address] [id number] [place] [address]- 3261 Sep, [facility] [place] [facility] [address] [id number] [place] [address]- 6043 Sep, [facility] [place] [facility] [address] [id number] [place] [address]- 4770 Sep, [facility] [place] [facility] [address] [id number] [place] [address]- 6077 Sep, [facility] [place] [facility] [address] [id number] [place] [address]- 3029 Sep, [facility] [place] [facility] [address] [id number] [place] [address]- 4994 Sep, [facility] [place] [facility] [address] [id number] [place] [address]- 3200 Sep, [facility] [place] [facility] [address] [id number] [place] [address]- 7487 Sep, [facility] [place] [facility] [address] [id number] [place] [address]- 4905 Aug, [facility] [place] [facility] [address] [id number] [place] [address]- 4607 Aug, [facility] [place] [facility] [address] [id number] [place] [address]- 7178 Aug, [facility] [place] [facility] [address] [id number] [place] [address]- 3369 Aug, [facility] [place] [facility] [address] [id number] [place] [address]- 5392 Aug, [facility] [place] [facility] [address] [id number] [place] [address]- 2761 Aug, [facility] [place] [facility] [address] [id number] [place] [address]- 1548 Aug, [facility] [place] [facility] [address] [id number] [place] [address]- 0731 Aug, [facility] [place] [facility] [address] [id number] [place] [address]- 9546 July, [facility] [place] [facility] [address] [id number] [place] [address]- 2651 July, [facility] [place] [facility] [address] [id number] [place] [address]- 1252 July, [facility] [place] [facility] [address] [id number] [place] [address]- 8339 July, [facility] [place] [facility] [address] [id number] [place] [address]- 2385 July, [facility] [place] [facility] [address] [id number] [place] [address]- 0467 July, [facility] [place] [facility] [address] [id number] [place] 8715 July, [facility] [place] [facility] [address] [id number] [place] [address]- 2407 July, [facility] [address] [id number] [place] [address]- 4379 Jun, [facility] [place] [facility] [address] [id number] [place] [address]- 9988 Jun, [facility] [place] [facility] [address] [id number] [place] [address]- 7896 Jun, [facility] [place] [facility] [address] [id number] [place] [address]- 4290 Jun, [facility] [place] [facility] [address] [id number] [place] [address]- 4240 Jun, [facility] [place] [facility] [address] [id number] [place] [address]- 4161 Jun, [facility] [address] [id number] [place] [address]- 7420 Jun, [facility] [place] [facility] [address] [id number] [place] [address]- 1784 Jun, [facility] [place] [facility] [address] [id number] [place] [address]- 8704 Jun, [facility] [place] [facility] [address] [id number] [place] [address]- 9088 Jun, [facility] [place] [facility] [address] [id number] [place] [address]- 6481 Jun, [facility] [place] [facility] [address] [id number] [place] [address]- 2454 Jun, [facility] [place] [facility] [address] [id number] [place] [address]- 4836 May, [facility] [place] [facility] [address] [id number] [place] [address]- 9365 May, [facility] [place] [facility] [address] [id number] [place] [address]- 0620 May, [facility] [place] [facility] [address] [id number] [place] [address]- 1295 26 May, 2013 [facility] [place] [facility] [address] [id number] [place] [address]- 1066 13 May, 2013 [facility] [place] [facility] [address] [id number] [place] [address]- 7636 13 May, 2013 [facility] [place] [facility] [address] [id number] [place] [address]- 8459 12 May, 2013 [facility] [place] [facility] [address] [id number] [place] [address]- 4501 12 May, 2013 [facility] [place] [facility] [address] [id number] [place] [address]- 7652 11 May, 2013 [facility] [place] [facility] [address] [id number] [place] [address]- 3122 May, [facility] [place] [facility] [address] [id number] [place] [address]- 2806 11 May, 2013 [facility] [place] [facility] [address] [id number] [place] [address]- 9287 May, [facility] [place] [facility] [address] [id number] [place] [address]- 8083 10 May, 2013 [facility] [place] [facility] [address] [id number] [place] [address]- 0430 May, [facility] [place] [facility] [address] [id number] [place] [address]- 8301 Apr, [facility] [place] [facility] [address] [id number] [place] [address]- 8922 Apr, [facility] [place] [facility] [address] [id number] [place] [address]- 5834 Apr, [facility] [place] [facility] [address] [id number] [place] [address]- 2245 Apr, [facility] [place] [facility] [address] [id number] [place] [address]- 0543 Apr, [facility] [place] [facility] [address] [id number] [place] [address]- 9728 Apr, [facility] [place] [facility] [address] [id number] [place] [address]- 6922 Mar, [facility] [place] [facility] [address] [id number] [place] [address]- 9730 Mar, [facility] [place] [facility] [address] [id number] [place] [address]- 9637 Mar, [facility] [place] [facility] [address] [id number] [place] [address]- 3756 Mar, [facility] [place] [facility] [address] [id number] [place] [address]- 6102 Mar, [facility] [place] [facility] [address] [id number] [place] [address]- 8755 Mar, [facility] [place] [facility] [address] [id number] [place] [address]- 1277 Mar, [facility] [place] [facility] [address] [id number] [place] [address]- 5856 Mar, [facility] [place] [facility] [address] [id number] [place] [address]- 6130 Mar, [facility] [place] [facility] [address] [id number] [place] [address]- 3203 Mar, [facility] [place] [facility] [address] [id number], [place] [address]- 7834 Mar, [facility] [place] [facility] [address] [id number] [place] [address]- 0676 Mar, [facility] [place] [facility] [address] [id number] [place] [address]- 4035 Mar, [facility] [place] [facility] [address] [id number] [place] [address]- 3280 Mar, [facility] [place] [facility] [address] [id number] [place] [address]- 6214 Feb, 2012 [facility] [address] [id number] [place] [address]- 9926 Feb, [facility] [place] [facility] [address] [id number] [place] [address]- 0266 Feb, [facility] [place] [facility] [address] [id number] [place] [address]- 9606 Feb, [facility] [place] [facility] [address] [id number] [place] [address]- 9049 Feb, [facility] [place] [facility] [address] [id number] [place] [address] Feb, [facility] [place] [facility] [address] [id number] [place] [address] Feb, [facility] [place] [facility] [address] [id number] [place] [address] Feb, [facility] [place] [facility] [address] [id number] [place] [address] Feb, [facility] [place] [facility] [address] [id number] [place] [address] Feb, [facility] [place] [facility] [address] [id number] [place] [address] Feb, [facility] [place] [facility] [address] [id number] [place] [address] Feb, [facility] [place] [facility] [address] [id number] [place] [address] Feb, [facility] [place] [facility] [address] [id number] [place] [address] 0716 Feb, [facility] [place] [facility] [address] [id number] [place] [address] Feb, [facility] [place] [facility] [address] [id number] [place] [address] Feb, 2012 [facility] [place] [facility] [address] [id number] [place] [address] 24 Dec, 2012 [facility] [place] [facility] [address] [id number] [place] [address]- 7426 24 Dec, 2012 [facility] [place] [facility] [address] [id number] [place] [address] 74[address] 16 Dec, 2012 [facility] [place] [facility] [address] [id number] [place] [address]40 16 Dec, 2012 [facility] [place] [facility] [address] [id number] [place] [address] 3918 16 Dec, 2012 [facility] [place] [facility] [address] [id number] [place] [address]- 7987 16 Dec, 2012 [facility] [place] [facility] [address] [id number] [place] [address] 2184 14 Dec, 2012 [facility] [place] [facility] [address] [id number], [place] [address] 14 Dec, 2012 [facility] [place] [facility] [address] [id number] [place] [address]171 10 Dec, 2012 [facility] [place] [facility] [address] [id number], [place] [address]336 10 Dec, 2012 [facility] [place] [facility] [address] [id number], [place] [address] 10 Dec, 2012 [facility] [place] [facility] [address] [id number], [place] [address]- 1490 10 Dec, 2012 [facility] [place] [facility] [address] [id number] [place] [address]- [address]451 03 Dec, 2012 [facility] [place] [facility] [address] [id number], [place] [address] 25 Nov, 2012 [facility] [place] [facility] [address] [id number], [place] [address] 20 Nov, 2012 [facility] [place] [facility] [address] [id number] [place] [address]162 18 Nov, 2012 [facility] [address] [id number] [place] [address] 1060 16 Nov, 2012 [facility] [place] [facility] [address] [id number] [place] [address]- 6476 12 Nov, 2012 [facility] [address] [id number] [place] [address] 6239 11 Nov, 2012 [facility] [place] [facility] [address] [id number] [place] [address] 0427 05 Nov, 2012 [facility] [place] [facility] [address] [id number] [place] [address] 9680 15 Oct, 2012 [facility] [place] [facility] [address] [id number] [place] [address] Oct, [facility] [address] [id number] [place] [address] 8915 24 Sep, 2012 [facility] [place] [facility] [address] [id number] [place] [address] 9645 Sep, [facility] [place] [facility] [address] [id number] [place] [address] 9652 Sep, [facility] [place] [facility] [address] [id number] [place] [address] 7939 Sep, [facility] [place] [facility] [address] [id number] [place] [address]- 6762 15 Sep, 2012 [facility] [place] [facility] [address] [id number] [place] [address] 5656 Sep, [facility] [place] [facility] [address] [id number] [place] [address] 0[address] Sep, [facility] [place] [facility] [address] [id number] [place] [address] 4118 Aug, [facility] [place] [facility] [address] [id number] [place] [address] 2869 Aug, [facility] [place] [facility] [address] [id number] [place] [address]- 8926 16 Aug, 2012 [facility] [place] [facility] [address] [id number] [place] [address] 7834 Aug, [facility] [place] [facility] [address] [id number] [place] [address] 9616 Aug, [facility] [place] [facility] [address] [id number] [place] [address] 9980 Aug, [facility] [address] [id number] [place] [address]- 7499 Aug, [facility] [place] [facility] [address] [id number] [place] [address] 9618 Aug, [facility] [place] [facility] [address] [id number] [place] [address] 5351 July, [facility] [place] [facility] [address] [id number] [place] [address] 0716 July, [facility] [address] [id number] [place] [address]- 2625 July, [facility] [place] [facility] [address] [id number] [place] [id number] July, [facility] [place] [facility] [address] [id number] [place] [address] 2606 July, [facility] [place] [facility] [address] [id number] [place] [address] 1216 Jun, [facility] [place] [facility] [address] [id number] [place] [address] 2546 May, [facility] [place] [facility] [address] [id number] [place] [address]- 0096 14 May, 2012 [facility] [place] [facility] [address] [id number] [place] [address]- 2526 04 May, 2012 [facility] [place] [facility] [address] [id number] [place] [address]- 8729 Apr, [facility] [address] [id number] [place] [address] 1166 Apr, [facility] [place] [facility] [address] [id number] [place] [address]- 6766 Apr, [facility] [place] [facility] [address] [id number] [place] [address] 7030 Mar, [facility] [place] [facility] [address] [id number] [place] [address]- 2256 Mar, [facility] [place] [facility] [address] [id number] [place] [address]- 0317 Mar, [facility] [place] [facility] [address] [id number] [place] [address]- 6345 Mar, [facility] [address] [id number] [place] [address]- 8730 Mar, [facility] [place] [facility] [address] [id number] [place] [address]- 68[address] Mar, [facility] [address] [id number] [place] [address]- 2599 Mar, [facility] [place] [facility] [address] [id number] [place] [address]- 2016 Feb, [facility] [address] [id number] [place] [address]- 7475 31 Feb, 2012 [facility] [place] [facility] [address] [id number] [place] [address]- 1076 18 Feb, 2012 [facility] [place] [facility] [address] [id number] [place] [address]- 1918 18 Feb, 2012 [facility] [place] [facility] [address] [id number] [place] [address]- 4042 17 Feb, 2012 [facility] [place] [facility] [address] [id number] [place] [address]- 6171 17 Feb, 2012 [facility] [place] [facility] [address] [id number] [place] [address] Feb, [facility] [place] [facility] [address] [id number] [place] [address] Feb, [facility] [place] [facility] [address] [id number] [place] [address] Jan, [facility] [place] [facility] [address] [id number] [place] [address] Jan, [facility] [place] [facility] [address] [id number] [place] [address] Jan, [facility] [place] [facility] [address] [id number] [place] [address] 48[address] Jan, [facility] [place] [facility] [address] [id number] [place] [address] 6[address] Jan, [facility] [place] [facility] [address] [id number] [place] [address] Jan, [facility] [place] [facility] [address] [id number] [place] [address] Jan, [facility] [place] [facility] [address] [id number] [place] [address] Jan, [facility] [address] [id number] [place] [address] Jan, [facility] [place] [facility] [address] [id number] [place] [address] 57[address] Jan, [facility] [place] [facility] [address] [id number] [place] [address] 7029 Jan, [facility] [place] [facility] [address] [id number] [place] [address] Jan, [facility] [place] [facility] [address] [id number] [place] [address] 4[address] Jan, [facility] [place] [facility] [address] [id number] [place] [address] Jan, [facility] [place] [facility] [address] [id number] [place] [address] 5165 Jan, [facility] [place] [facility] [address] [id number] [place] [address] 6366 Jan, [facility] [place] [facility] [address] [id number] [place] [address] 2362 Dec, [facility] [place] [facility] [address] [id number] [place] [address] 6701 Dec, [facility] [place] [facility] [address] [id number] [place] [address] 99[address] Dec, [facility] [place] [facility] [address] [id number] [place] [address] Dec, [facility] [place] [facility] [address] [id number] [place] [address] 8561 Dec, [facility] [place] [facility] [address] [id number] [place] [address] 7664 Dec, [facility] [place] [facility] [address] [id number] [place] [address] 6709 Dec, [facility] [place] [facility] [address] [facility] [id number] [address] Dec, [facility] [place] [facility] [address] [id number], [place] [address] Dec, [facility] [place] [facility] [address] [id number], [place] [address] 05 Dec, 2011 [facility] [place] [facility] [address] [id number] [place] [address] 18 Nov, 2011 [facility] [place] [facility] [address] [id number] [address] 13 Nov, 2011 [facility] [place] [facility] [address] [facility] [id number], [place] [address] 24 Oct, 2011 [facility] [place] [facility] [address] [id number], [place] [address] Oct, [facility] [place] [facility] [address] [id number] [place] [address] 5264 Oct, [facility] [place] [facility] [address] [id number] [place] [address] 3293 Oct, [facility] [place] [facility] [address] [id number] [place] [address] 4696 Oct, [facility] [place] [facility] [address] [id number] [place] [address] 6083 Oct, [facility] [place] [facility] [address] [id number] [place] [address] 8032 Oct, [facility] [place] [facility] [address] [id number] [place] [address] 5469 Sep, [facility] [place] [facility] [address] [id number] [place] [address] 1571 Aug, [facility] [place] [facility] [address] [id number] [place] [address] 38[address] Aug, [facility] [place] [facility] [address] [id number] [place] [address] Aug, [facility] [place] [facility] [address] [facility] [id number] [place] [address] 6289 Aug, [facility] [place] [facility] [address] [id number] [place] [address] 8170 Aug, [facility] [place] [facility] [address] [id number] [place] [address] 2194 July, [facility] [place] [facility] [address] [id number] [place] [address] 7456 July, [facility] [place] [facility] [address] [facility] [id number] [place] [address] 2079 July, [facility] [place] [facility] [address] [id number] [place] [address] 0360 Jun, [facility] [place] [facility] [address] [id number] [place] [address]- 6157 05 Jun, 2011 [facility] [place] [facility] [address] [id number] [place] [address]- 0126 04 Jun, 2011 [facility] [place] [facility] [address] [id number] [place] [address] 4096 Jun, [facility] [place] [facility] [address] [id number] [place] [address] 3796 30 May, 2011 [facility] [place] [facility] [address] [id number] [place] [address] 8585 30 May, 2011 [facility] [place] [facility] [address] [id number] [place] [address] 6871 29 May, 2011 [facility] [place] [facility] [address] [id number] [place] [address] 4418 May, [facility] [place] [facility] [address] [id number] [place] [address] 0910 May, [facility] [place] [facility] [address] [id number] [place] [address] 0702 22 May, 2011 [facility] [place] [facility] [address] [id number] [place] [address] 9209 May, [facility] [place] [facility] [address] [id number] [place] [address]- 8036 May, [facility] [place] [facility] [address] [id number] [place] [address] 7964 08 May, 2011 [facility] [place] [facility] [address] [id number] [place] [address] 2409 05 May, 2011 [facility] [place] [facility] [address] [id number] [place] [address]- 0526 02 May, 2011 [facility] [place] [facility] [address] [id number] [place] [address] 2546 May, [facility] [place] [facility] [address] [id number] [place] [address] 9818 Mar, [facility] [place] [facility] [address] [id number] [place] [address] 1901 Mar, [facility] [place] [facility] [address] [id number] [place] [address]- 8068 28 Feb, 2011 [facility] [place] [facility] [address] [id number] [place] [address] Feb, [facility] [place] [facility] [address] [id number] [place] [address]- 3577 20 Feb, 2011 [facility] [place] [facility] [address] [id number] [place] [address]- 9199 15 Feb, 2011 [facility] [place] [facility] [address] [id number] [place] [address]- 8941 Feb, [facility] [place] [facility] [address] [id number] [place] [address]- 0680 Feb, [facility] [place] [facility] [address] [id number] [place] [address]- 3513 Feb, [facility] [place] [facility] [address] [id number] [place] [address]- 0847 Jan, [facility] [place] [facility] [address] [id number] [place] [address]- 6049 Jan, [facility] [place] [facility] [address] [id number], [place] [address]- 7263 Jan, [facility] [place] [facility] [address] [id number], [place] [address]- 1098 17 Jan, 2011 [facility] [place] [facility] [address] [id number] [place] [address]- 6671 Jan, [facility] [place] [facility] [address] [id number], [place] [address]- 9036 03 Jan, 2011 [facility] [place] [facility] [address] [id number] [place] [address]- 4826 27 Dec, 2010 [facility] [place] [facility] [address] [id number] [place] [address]- 1702 27 Dec, 2010 [facility] [place] [facility] [address] [id number] [place] [address]- 4967 11 Dec, 2010 [facility] [place] [facility] [address] [id number] [place] [address]- 5966 July, [facility] [place] [facility] [address] [id number] [place] [address]- 8608 July, [facility] [place] [facility] [address] [id number] [place] [address] 2547 Feb, [facility] [place] [facility] [address] [id number] [place] [address]- 6182 Jan, [facility] [place] [facility] [address] [id number] [place] [address]- 1287 Dec, [facility] [place] [facility] [address] [id number] [place] [address]- 1203 Dec, [facility] [place] [facility] [address] [id number] [place] [address]- 0201 15 Sep, 2009 [facility] [place] [facility] [address] [id number] [place] [address]- 1282 Aug, [facility] [place] [facility] [address] [facility] [id number] [place] [address]- 9509 Jun, [facility] [place] [facility] [address] [id number] [place] [address]- 0148 Jun, [facility] [place] [facility] [address] [id number] [place] [address]- 9419 Jan, [facility] [place] [facility] [address] [id number] [place] [address]- 4486 Jan, [facility] [place] [facility] [address] [id number] [place] [address]- 2549 Jan, [facility] [place] [facility] [address] [id number] [place] [address] Jan, [facility] [place] [id number], [place] [address]- 9045 Dec, [facility] [place] [id number], [place] [address]- 3219 Dec, [facility] [place] [id number], [place] [address]- 6438 Dec, [facility] [place] [id number] [place] [address]- 3663 Nov, [facility] [place] [address] [id number], [place] [address]- 9307 July, [facility] [place] [id number] [place] [address]- 9095 May, [facility] [place] [id number], [place] [address]- 3600 Apr, [facility] [place] [id number] [place] [address]- 0052 Feb, [facility] [place] [id number], [place] [address]- 5659 Dec, IMMUNIZATIONS No Known Immunizations SOCIAL HISTORY Never Assessed REASON FOR VISIT f/u ENRIQUE PLAN OF CARE Activity Details Follow Up 4 Months, prn Reason: VITAL SIGNS Height 64 in 2017-09-14 Weight 191 lbs 2017-09-14 Heart Rate 90 bpm 2017-09-14 Respiratory Rate 20 2017-09-14 BMI 32.78 kg/m2 2017-09-14 Blood pressure systolic 116 mmHg 2017-09-14 Blood pressure diastolic 76 mmHg 2017-09-14 MEDICATIONS Medication Instructions Dosage Frequency Start Date End Date Duration Status Celexa 40 MG Orally Once a day 1 tablet 24h May, 30 days Active Actos 45 MG Orally Once a day #60 samples 1 tablet Apr, Active Lamictal 200 MG Orally every evening 1 tablet May, 30 days Active Ativan 0.5 MG Orally Once a day, no early refills 1 tablet as needed Sep, Active Toprol XL 25 mg take 1 tablet by Oral route 1 time per day take at hs May, Active Tizanidine HCl 4 MG Orally Once a day 1 tablet as needed at bedtime 24h July, 30 days Active Victoza 18 MG/3ML Subcutaneous Once a day inject 1.8 ml 24h 90 days Active Test strips Contour test strips 2 times a day test blood sugar 12h Aug, Active Amaryl 4 MG Orally Once a day in AM 1 tablet with breakfast or the first main meal of the day Sep, 30 day(s) Active Farxiga 10 MG Orally Once a day 1 tablet 24h Apr, 90 days Active Simvastatin 80 MG Orally Once a day 1 tablet in the evening 24h Sep, 90 days Active Aspirin Adult Low Strength 81 MG Orally Once a day 1 tablet 24h Active NovoFine 32G X 6 MM subcutaneously 3 times a day as directed for use with Victoza and Novolog Pens 8h July, 90 days Active NovoLog Mix 70/30 Flexpen (70-30) 100 UNIT/ML Subcutaneous 2 times a day Inject 110 units 12h 90 days Active RESULTS No Results [...] History Pain shot in lower back -Dr. Shehean 08/23/15 Hospitalization History surgery
--- OUTSIDE RECORDS SUMMARY | 2018-06-14 14:36 | XMS REPORT ---
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 Active 684337435 Problem Hyperlipidemia, unspecified E78.5 Active 56769907 Problem Type 2 diabetes mellitus with complication E11.8 Active 637873741 Problem New daily persistent headache G44.52 Active 109775349 Problem Acute bilateral low back pain with right-sided sciatica M54.41 Active 222509449 Problem Obesity, unspecified 278.00 Active 593597330 Problem Hyperlipidemia 272.4 Active 23817231 Problem Post laminectomy syndrome M96.1 Active 63832087 Problem Eye exam normal Z01.00 Active 101709209 Problem 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 Active 00286423 Problem Non compliance with medical treatment Z91.19 Active 6027503 Problem Bipolar disorder, in partial remission, most recent episode manic F31.73 Active 06216528 Problem Diabetes E11.9 Active 365161226 Problem Extreme poverty Z59.5 Active 87656386 Problem Irritable bowel syndrome with diarrhea K58.0 Active 984521116 ALLERGIES No Information ENCOUNTERS Encounter Location Date Diagnosis [facility] [address] [facility] [id number] [address] Nov, [facility] [address] [facility] [id number] [address] Nov, [facility] [address] [place] [address] 82261- 5743 Nov, [place] [address] [id number] [place] [address] 62585- 3885 Nov, [place] [address] [id number] [place] [address] 25144- 5990 Oct, Bipolar 1 disorder F31.9 ; 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 and Extreme poverty Z59.5 [place] [address] [id number] [place] [address] 87731- 4171 Oct, Type 2 diabetes mellitus with hyperglycemia E11.65 ; half-way current use of insulin Z79.4 and Other acute gastritis without hemorrhage K29.00 [place] [id number] [place] [address] 59366- 6533 Oct, Bipolar 1 disorder F31.9 ; 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 and Extreme poverty Z59.5 [place] [id number] [place] [address] 09598- 5618 Sep, Diarrhea, unspecified R19.7 and Vomiting, unspecified R11.10 [place] [id number] [place] [address] 37613- 9415 Aug, Type 2 diabetes mellitus with complication E11.8 [place] [id number] [place] [address] 93807- 6266 Aug, [place] [address] [id number] [place] [address] 65095- 8129 Aug, Bipolar 1 disorder F31.9 ; 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 and Extreme poverty Z59.5 [place] [id number] [place] [address] 81373- 0930 Aug, 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 and Bipolar disorder, in partial remission, most recent episode manic F31.73 [place] [id number] [place] [address] 73971- 4060 14 Aug, 2017 Bipolar 1 disorder F31.9 [place] [address] [address] Aug, [facility] [id number] [place] [address] 72175- 2149 Aug, [facility] [address] [place] [address] [id number] [place] [address] 08173- 6433 Aug, Bipolar 1 disorder F31.9 ; 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 and Extreme poverty Z59.5 [place] [address] [id number] [place] [address] 13015- 9679 July, Type 2 diabetes mellitus with complication E11.8 [place] [address] [place] [address] [id number] [place] [address] 33452- 5563 July, Bipolar 1 disorder F31.9 ; 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 and Extreme poverty Z59.5 [place] [address] [id number] [place] [address] 15242- 9211 Jun, Bipolar 1 disorder F31.9 ; 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 and Extreme poverty Z59.5 [place] [address] [place] [address] 52440- 8437 Jun, Bipolar 1 disorder F31.9 ; 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 and Extreme poverty Z59.5 [place] [address] [place] [address] 24915- 3439 Jun, Bipolar 1 disorder F31.9 ; 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 and Extreme poverty Z59.5 [place] [address] [place] [address] 33285- 4544 May, Urinary tract infection without hematuria, site unspecified N39.0 [place] [address] [id number] [place] [address] 87911- 8784 May, Bipolar 1 disorder F31.9 ; 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 and Extreme poverty Z59.5 [place] [address] [place] [address] 80831- 0648 Apr, Diabetes E11.9 and Breast cancer screening Z12.31 [place] [id number] [place] [address] 03077- 4532 Apr, Bipolar 1 disorder F31.9 and 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 [place] [id number] [place] [address] 74933- 7096 Mar, Bipolar 1 disorder F31.9 ; 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 and Extreme poverty Z59.5 [place] [address] [id number] [place] [address] 04854- 2266 Mar, New daily persistent headache G44.52 ; Leg pain 729.5 and History of carpal tunnel release Z98.890 [place] [id number] [place] [address] 32971- 6925 Mar, Hyperlipidemia, unspecified E78.5 [place] [address] 03863- 3571 Mar, Bipolar 1 disorder F31.9 ; 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 and Extreme poverty Z59.5 [place] [id number] [place] [address] 15450- 1364 Feb, Bipolar 1 disorder F31.9 ; 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 and Extreme poverty Z59.5 [place] [id number] [place] [address] 41704- 3291 Feb, Diabetes E11.9 [facility] [id number] [place] [address] 04323- 2243 Feb, Viral syndrome B34.9 [facility] [id number] [place] [address] 92134- 4375 Jan, Other viral agents as the cause of diseases classified elsewhere B97.89 and Acute upper respiratory infection, unspecified J06.9 [place] [id number] [place] [address] 82064- 3955 16 Jan, 2017 Bipolar 1 disorder F31.9 and 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 [place] [address] [place] [address] 21917- 7362 Jan, Bipolar 1 disorder F31.9 ; 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 and Extreme poverty Z59.5 [place] [address] [place] [address] [id number] [place] [address] 28273- 2949 Dec, Diabetes E11.9 [place] [address] [place] [address] [id number] [place] [address] 175299- 3391 Dec, Diabetes E11.9 and Encounter for immunization Z23 [place] [id number] [place] [address] 99465- 9777 Dec, Bipolar 1 disorder F31.9 ; 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 and Extreme poverty Z59.5 [place] [id number] [place] [address] 50501- 6426 Dec, Back pain M54.9 [place] [address] [place] [id number] [place] [address] 49274- 2380 07 Nov, 2016 [place] [address] [id number] [place] [address] 67834- 9971 06 Nov, 2016 Bipolar 1 disorder F31.9 ; 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 and Extreme poverty Z59.5 [place] [address] [place] [address] 78871- 7969 05 Nov, 2016 Bipolar 1 disorder F31.9 ; 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 and Extreme poverty Z59.5 [place] [address] [place] [address] 21976- 0224 Oct, 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 and Bipolar 1 disorder F31.9 [place] [id number] [place] [address] 63831- 8171 Oct, Back pain M54.9 [facility] [address] [place] [address] 29854- 6919 Oct, Bipolar 1 disorder F31.9 ; 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 and Extreme poverty Z59.5 [facility] [address] [place] [address] 00318- 5735 Oct, 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 and Type 2 diabetes mellitus with complication E11.8 [facility] [id number] [place] [address] 20447- 8777 Sep, Bipolar 1 disorder F31.9 ; 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 and Extreme poverty Z59.5 [place] [address] [place] [address] [id number] [place] [address] 29388- 3932 Sep, 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 and Bipolar 1 disorder F31.9 [place] [address] [place] [address] [id number] [place] [address] 59872- 2114 Sep, Bipolar 1 disorder F31.9 ; 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 and Extreme poverty Z59.5 [place] [id number] [place] [address] 05279- 7182 Aug, Diabetes E11.9 ; Hyperlipidemia, unspecified E78.5 and Lumbar radiculopathy M54.16 [place] [id number] [place] [address] 65637- 1518 Aug, Bipolar 1 disorder F31.9 ; 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 and Extreme poverty Z59.5 [place] [address] [place] [address] [id number] [place] [address] 53865- 0440 Aug, [place] [address] [place] [id number] [place] [address] 72332- 7100 Aug, [place] [address] [place] [id number] [place] [address] 81349- 5346 Aug, [place] [address] [place] [id number] [place] [address] 30842- 1120 July, [place] [address] [place] [id number] [place] [address] 50602- 6069 July, Acute bilateral low back pain with right-sided sciatica M54.41 [place] [address] [place] [address] 33937- 7467 July, Bipolar 1 disorder F31.9 ; 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 and Extreme poverty Z59.5 [place] [address] [place] [id number] [place] [address] 30232- 5926 July, Back pain M54.9 and Diabetes E11.9 [place] [address] [place] [id number] [place] [address] 11139- 5110 Jun, Bipolar 1 disorder F31.9 ; 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 and Extreme poverty Z59.5 [place] [address] [place] [id number] [place] [address] 98749- 3749 Jun, Bipolar 1 disorder F31.9 ; 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 and Extreme poverty Z59.5 [place] [address] [place] [address] 03014- 0431 May, Visit for pelvic exam Z01.419 ; Acute vaginitis N76.0 and Diabetes E11.9 [place] [address] [place] [id number] [place] [address] 43059- 9989 May, Bipolar 1 disorder F31.9 ; 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 and Extreme poverty Z59.5 [place] [address] [place] [address] 26643- 2322 May, [place] [address] [place] [address] [id number] [place] [address] 31519- 7509 May, [place] [address] [place] [id number] [place] [address] 90917- 1300 May, Bipolar 1 disorder F31.9 ; 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 and Extreme poverty Z59.5 [place] [address] [place] [id number] [place] [address] 34019- 0216 May, Hyperlipidemia, unspecified E78.5 [place] [address] [place] [address] 93626- 1493 13 Feb, 2017 Breast cancer screening Z12.39 [place] [address] [place] [id number] [place] [address] 73272- 9422 Mar, [place] [address] 39984- 1461 Mar, Bipolar disorder, current episode mixed, unspecified F31.60 [place] [address] 99037- 4766 Mar, Bipolar 1 disorder F31.9 ; 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 and Extreme poverty Z59.5 [place] [address] 77055- 7580 Feb, Acute nasopharyngitis J00 [place] [address] 25749- 9350 27 Feb, 2016 Dental examination Z01.20 [place] [address] 89276- 0042 21 Feb, 2016 Dental cavities K02.9 and Chronic periodontitis, unspecified K05.30 [place] [address] 58883- 2495 13 Feb, 2016 Low back pain M54.5 and Extreme poverty Z59.5 [place] [address] [place] [address] [id number] [place] [address] 45721- 0409 Feb, [place] [address] 19921- 0989 05 Feb, 2016 Routine gynecological examination V72.31 ; Breast cancer screening Z12.39 and Herpes simplex type 1 infection B00.9 [place] [address] [place] [id number] [place] [address] 78484- 4798 Feb, Diabetes E11.9 [place] [address] 08238- 5939 Feb, Encounter for dental examination and cleaning without abnormal findings Z01.20 [place] [address] 84971- 9012 Jan, Hyperlipidemia, unspecified E78.5 [facility] [address] [place] [address] [id number] [place] [address] 87359- 7670 Jan, Bipolar 1 disorder F31.9 ; 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 and Extreme poverty Z59.5 [place] [address] [place] [address] [id number] [place] [address] 72487- 3868 Jan, Diabetes E11.9 [place] [address] 265872- 6489 Jan, Diabetes E11.9 [place] [address] 44859- 0540 14 Dec, 2015 Bipolar 1 disorder F31.9 ; 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 and Extreme poverty Z59.5 [place] [address] [place] [id number] [place] [address] 72147- 6918 13 Dec, 2015 Bipolar disorder, current episode mixed, unspecified F31.60 and 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 [place] [address] [place] [address] [id number] [place] [address] 03231- 6896 16 Nov, 2015 Bipolar 1 disorder F31.9 ; 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 ; Extreme poverty Z59.5 and Non compliance with medical treatment Z91.19 [place] [address] [place] [id number] [place] [address] 41450- 0037 Oct, [place] [address] [place] [address] [id number] [place] [address] 49397- 3467 Oct, Dental caries K02.9 [place] [address] [place] [address] [id number] [place] [address] 42757- 3941 Oct, Low back pain M54.5 and Other chronic pain G89.29 [place] [address] [place] [address] [id number] [place] [address] 32014- 5323 Oct, Bipolar 1 disorder F31.9 ; 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 ; Extreme poverty Z59.5 and Non compliance with medical treatment Z91.19 [place] [address] [address]- 0631 Oct, [place] [address] [place] [address] [id number] [place] [address] 29573- 4155 Oct, [place] [address] [place] [id number] [place] [address] 84497- 8450 Oct, Dental examination Z01.20 [place] [address] [place] [id number] [place] [address] 41953- 3025 Oct, Bipolar 1 disorder F31.9 ; 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 ; Extreme poverty Z59.5 and Non compliance with medical treatment Z91.19 [place] [address] [place] [id number] [place] [address] 90489- 0552 Oct, [place] [address] [place] [address] [id number] [place] [address] 46647- 6225 Sep, Type 2 diabetes mellitus with complication E11.8 [place] [address] [place] [address] [id number] [place] [address] 66755- 6733 Sep, Bipolar disorder, current episode mixed, unspecified F31.60 [place] [address] [place] [id number] [place] [address] 12301- 4188 Sep, Bipolar disorder, current episode mixed, unspecified F31.60 [place] [address] [place] [address] 03067- 7564 Sep, Bipolar disorder, in partial remission, most recent episode manic F31.73 ; 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 ; Extreme poverty Z59.5 and Non compliance with medical treatment Z91.19 [facility] [address] [place] [address] 59076- 7002 Aug, Bipolar disorder, in partial remission, most recent episode manic F31.73 ; 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 ; Extreme poverty Z59.5 and Non compliance with medical treatment Z91.19 [place] [address] [place] [address] 16339- 6294 Aug, Bipolar disorder, in partial remission, most recent episode manic F31.73 ; 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 ; Extreme poverty Z59.5 and Non compliance with medical treatment Z91.19 [place] [address] [place] [address] 18748- 6794 Aug, [place] [address] [place] [address] 55385- 5099 July, Bipolar disorder, in partial remission, most recent episode manic F31.73 ; 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 ; Extreme poverty Z59.5 and Non compliance with medical treatment Z91.19 [place] [address] [place] [address] 64714- 5774 July, Bipolar disorder, current episode mixed, unspecified F31.60 [place] [address] [place] [address] [id number] [place] [address] 23323- 4254 July, Bipolar disorder, in partial remission, most recent episode manic F31.73 ; 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 ; Extreme poverty Z59.5 and Non compliance with medical treatment Z91.19 [place] [address] [place] [address] 30610- 7701 July, half-way current 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 Z79.891 and Chronic pain G89.29 [place] [address] [place] [address] 97074- 2396 Jun, half-way current 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 Z79.891 and Bipolar 1 disorder F31.9 [place] [address] [place] [address] 81924- 0184 Jun, [place] [address] [place] [id number] [place] [address] 88183- 9778 Jun, [place] [address] [place] [id number] [place] [address] 70889- 9222 Jun, [place] [id number] [place] [address] 18251- 7938 Jun, Bipolar disorder, in partial remission, most recent episode manic F31.73 ; 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 and Non compliance with medical treatment Z91.19 [place] [address] [place] [address] 2415 May, Bipolar disorder, in partial remission, most recent episode manic F31.73 ; 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 and Non compliance with medical treatment Z91.19 [place] [id number] [place] [address] 55858- 3476 May, Bipolar disorder, in partial remission, most recent episode manic F31.73 [place] [address] [place] [id number] [place] [address] 00848- 0458 May, Diabetes E11.9 and Chronic pain G89.29 [place] [address] [place] [id number] [place] [address] 31806- 0431 May, [place] [id number] [place] [address] 32489- 9119 May, Bipolar disorder, in partial remission, most recent episode manic F31.73 ; Non compliance with medical treatment Z91.19 and 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 [place] [id number] [place] [address] 44128- 3793 May, Type 2 diabetes mellitus with complication E11.8 and Back pain M54.9 [place] [address] [place] [address] 95942- 4374 May, Bipolar disorder, in partial remission, most recent episode manic F31.73 and 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 [place] [address] [place] [address] 99502- 7074 Apr, [place] [id number] [place] [address] 30282- 2519 Apr, [place] [address] [place] [address] 91665- 5484 Apr, [place] [address] [place] [address] [place] [address]- 1427 09 Apr, 2015 Diabetes E11.9 ; Irritable bowel syndrome with diarrhea K58.0 and Lumbar radiculopathy M54.16 [place] [address] [place] 270[address]- 2961 02 Apr, 2015 Breast screening Z12.[address] 27850- 1041 02 Apr, 2015 Bipolar disorder, in partial remission, most recent episode manic F31.73 ; Non compliance with medical treatment Z91.19 and 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 [place] [address] [place] 918900- 8865 Mar, Edema, unspecified type R60.9 and Type 2 diabetes mellitus with complication E11.[address] 58289- 6535 Mar, Bipolar disorder, in partial remission, most recent episode manic F31.73 ; Non compliance with medical treatment Z91.19 ; 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 and Extreme poverty Z59.5 [place] [address] 43173- 4977 Mar, Bipolar disorder, current episode mixed, unspecified F31.60 ; 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 ; Extreme poverty Z59.5 and Generalized anxiety disorder F41.1 [place] [id number] [place] [address] 10985- 0695 Mar, Bipolar disorder, in partial remission, most recent episode manic F31.73 ; 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 and Extreme poverty Z59.5 [place] [address] 49731- 3890 Feb, Bipolar disorder, in partial remission, most recent episode manic F31.73 ; 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 and Extreme poverty Z59.5 [place] [address] 86439- 2992 Feb, Bipolar disorder, in partial remission, most recent episode manic F31.73 ; 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 and Extreme poverty Z59.5 [place] [id number] [place] [address] 94116- 2672 Feb, [place] [id number] [place] [address] 01000- 7718 Jan, Type 2 diabetes mellitus with complication E11.8 and Petechiae R23.3 [place] [id number] [place] [address] 26394- 2731 Jan, Type 2 diabetes mellitus with complication E11.8 ; Edema, unspecified R60.9 ; Petechiae R23.3 and Diabetes E11.9 [place] [id number] [place] [address] 93467- 6091 Jan, Bipolar disorder, in partial remission, most recent episode manic F31.73 ; 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 and Extreme poverty Z59.5 [place] [id number] [place] [address] 66077- 7338 Jan, Bipolar disorder, in partial remission, most recent episode manic F31.73 ; 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 and Extreme poverty Z59.5 [place] [id number] [place] [address] 01022- 3444 Dec, Bipolar disorder, in partial remission, most recent episode manic F31.73 [place] [id number] [place] [address] 12018- 6495 Dec, Edema, due to unspecified malnutrition type, unspecified edema R60.9 and Essential hypertension I10 [place] [address] [place] [id number]- 7800 Dec, Bipolar disorder, in partial remission, most recent episode manic F31.73 [place] [id number] [place] [address] 41205- 1749 Nov, Bipolar I disorder, most recent episode (or current) mixed, unspecified 296.60 [facility] [address] [address]- 8036 Nov, Stress incontinence, female 625.6 ; Back pain 724.5 and Leg pain 729.5 [facility] [address] [address]- 9456 Nov, Generalized anxiety disorder 300.02 and Bipolar II disorder 296.89 [facility] [id number] [place] [address] 46076- 8008 Nov, Bipolar I disorder, most recent episode (or current) mixed, unspecified 296.60 [facility] [id number] [place] [address] 15912- 7779 Oct, [facility] [id number] [place] [address] 50699- 9883 Oct, [facility] [id number] [place] [address] 61982- 4427 Oct, [facility] [id number] [place] [address] 76316- 8727 Oct, Bipolar I disorder, most recent episode (or current) mixed, unspecified 296.60 [facility] [address] [address] 3[address] Sep, Diabetes 250.00 [facility] [id number] [place] [address] 25557- 7044 Sep, Bipolar I disorder, most recent episode (or current) mixed, unspecified 296.60 [facility] [address] [address] 2727 Sep, [facility] [id number] [place] [address] 87588- 0495 Sep, [facility] [id number] [place] [address] 75769- 3048 Sep, Bipolar I disorder, most recent episode (or current) mixed, unspecified 296.60 [facility] [address] [address] 2748 Sep, Bipolar I disorder, most recent episode (or current) mixed, unspecified 296.60 [facility] [address] [address] 2863 Sep, [facility] [id number] [address] [address] Sep, Anxiety 300.00 ; Diabetes 250.00 and Hyperlipidemia 272.4 [facility] [id number] [place] [address] 04398- 2429 Aug, [facility] [id number] [place] [address] 58161- 5831 Aug, [facility] [id number] [address] 2605 Aug, [facility] [id number] [place] [address] 66621- 3082 Aug, Bipolar I disorder, most recent episode (or current) mixed, unspecified 296.60 [facility] [id number] [place] [address] 57991- 1763 Aug, Generalized anxiety disorder 300.02 and Bipolar II disorder 296.89 [facility] [address] [address]- 9161 July, Bipolar I disorder, most recent episode (or current) mixed, unspecified 296.60 [facility] [address] [address]- 5785 July, Cough 786.2 [facility] [id number] [place] [address] 12482- 4941 July, Bipolar I disorder, most recent episode (or current) mixed, unspecified 296.60 [facility] [address] [address]- 1843 Jun, Diabetes 250.00 [facility] [address] [address] [address]- 3771 14 Jun, 2014 [facility] [place] [facility] [address] [id number] [place] [address]- 0718 13 Jun, 2014 [facility] [place] [facility] [address] [id number] [place] [address]- 4085 24 May, 2014 [facility] [place] [facility] [address] [id number] [place] [address]- 9656 24 May, 2014 [facility] [place] [facility] [address] [id number] [place] [address] 2543 10 May, 2014 [facility] [place] [facility] [address] [id number] [place] [address]- 1029 10 May, 2014 [facility] [place] [facility] [address] [facility]NOTE 3] [id number] [place] [address]- 9211 10 May, 2014 [facility] [place] [facility] [address] [facility]NOTE 3] [id number] [place] [address]- 8018 10 May, 2014 [facility] [place] [facility] [address] [facility]NOTE 3] [id number] [place] [address]- 9633 20 Apr, 2014 [facility] [place] [facility] [address] [facility]NOTE 3] [id number] [place] [address]- 1377 20 Apr, 2014 [facility] [place] [facility] [address] [facility]NOTE 3] [id number] [place] [address]- 6249 11 Apr, 2014 [facility] [place] [facility] [address] [facility]NOTE 3] [id number] [place] [address] 2545 11 Apr, 2014 [facility] [place] [facility] [address] [facility]NOTE 3] [id number] [place] [address] 2544 10 Apr, 2014 [facility] [place] [facility] [address] [facility]NOTE 3] [id number] [place] 2377 10 Apr, 2014 [facility] [place] [facility] [address] [facility]NOTE 3] [id number] [place] [address] 2546 05 Apr, 2014 [facility] [place] [facility] [address] [facility]NOTE 3] [id number] [place] [address]- 4456 Apr, [facility] [place] [facility] [address] [id number] [place] [address]- 1634 Mar, [facility] [place] [facility] [address] [id number] [place] [address]- 0874 Mar, [facility] [place] [facility] [address] [facility]NOTE 3] [id number] [place] [address]- 5319 Mar, [facility] [place] [facility] [address] [id number] [place] [address]- 3962 Mar, [facility] [place] [facility] [address] [id number] [place] [address]- 2293 Mar, [facility] [place] [facility] [address] [id number] [place] [address]- 6526 Mar, [facility] [place] [facility] [address] [id number] [place] [address]- 4488 Mar, [facility] [place] [facility] [address] [id number] [place] [address]- 6850 Mar, [facility] [place] [facility] [address] [id number] [place] [address]- 2170 Feb, [facility] [place] [facility] [address] [id number] [place] [address]- 9049 Feb, [facility] [place] [facility] [address] [id number] [place] [address]- 7786 Feb, [facility] [place] [facility] [address] [id number] [address]- 9306 Feb, [facility] [place] [facility] [address] [id number] [place] [address]- 0769 Feb, [facility] [place] [facility] [address] [id number] [place] [address]- 7491 Feb, [facility] [place] [facility] [address] [id number] [place] [address]- 5640 Feb, [facility] [place] [facility] [address] [id number] [place] [address]- 0684 Feb, [facility] [place] [facility] [address] [id number] [place] [address]- 8006 Feb, [facility] [place] [facility] [address] [id number] [place] [address]- 0955 Feb, [facility] [place] [facility] [address] [id number] [place] [address]- 5890 Jan, [facility] [place] [facility] [address] [id number] [place] [address]- 5013 Jan, [facility] [place] [facility] [address] [id number] [place] [address]- 4196 Jan, [facility] [place] [facility] [address] [id number] [place] [address]- 2966 Jan, [facility] [place] [facility] [address] [id number] [place] [address]- 4187 Jan, [facility] [place] [facility] [address] [id number] [place] [address]- 2826 Jan, [facility] [place] [facility] [address] [id number] [place] [address]- 3278 Jan, [facility] [place] [facility] [address] [id number] [place] [address]- 0352 Jan, [facility] [place] [facility] [address] [id number] [place] [address]- 2353 Jan, [facility] [place] [facility] [address] [id number] [place] [address]- 6403 Jan, [facility] [place] [facility] [address] [id number] [place] [address]- 6659 Jan, [facility] [place] [facility] [address] [id number] [place] [address]- 0695 Jan, [facility] [place] [facility] [address] [id number] [place] [address]- 0604 Jan, [facility] [place] [facility] [address] [id number] [place] [address]- 2368 Jan, [facility] [place] [facility] [address] [id number] [place] [address]- 5712 Jan, [facility] [place] [facility] [address] [id number] [place] [address]- 0605 Dec, [facility] [place] [facility] [address] [id number] [place] [address]- 8686 Dec, [facility] [place] [facility] [address] [id number] [place] [address]- 9426 Dec, [facility] [place] [facility] [address] [id number] [place] [address]- 0829 Dec, [facility] [place] [facility] [address] [id number] [place] [address]- 3513 Dec, [facility] [place] [facility] [address] [id number] [place] [address]- 4773 Dec, [facility] [place] [facility] [address] [id number] [place] [address]- 8942 Dec, [facility] [place] [facility] [address] [id number] [place] [address]- 2148 Dec, [facility] [place] [facility] [address] [id number] [place] [address]- 4475 Nov, [facility] [place] [facility] [address] [id number] [address]- 3598 25 Nov, 2013 [facility] [place] [facility] [address] [id number] [place] [address]- 0451 10 Nov, 2013 [facility] [place] [facility] [address] [id number] [place] [address]- 6560 10 Nov, 2013 [facility] [place] [facility] [address] [id number] [place] 1097 08 Nov, 2013 [facility] [place] [facility] [address] [id number] [place] [address]- 0370 08 Nov, 2013 [facility] [place] [facility] [address] [id number] [place] [address]- 6704 08 Nov, 2013 [facility] [place] [facility] [address] [id number] [place] [address]- 0260 08 Nov, 2013 [facility] [place] [facility] [address] [id number] [place] [address]- 3228 08 Nov, 2013 [facility] [place] [facility] [address] [id number] [place] [address]- 2897 08 Nov, 2013 [facility] [place] [facility] [address] [id number] [place] [address]- 9347 Nov, 2013 [facility] [place] [facility] [address] [id number] [place] [address]- 0058 Nov, 2013 [facility] [place] [facility] [address] [id number] [place] [address]- 7034 Nov, 2013 [facility] [place] [facility] [address] [id number] [place] [address]- 6133 Nov, 2013 [facility] [place] [facility] [address] [id number] [place] [address]- 3423 Nov, 2013 [facility] [place] [facility] [address] [id number] [place] [address]- 1123 Oct, [facility] [place] [facility] [address] [id number] [place] [address]- 2909 Oct, [facility] [place] [facility] [address] [id number] [place] [address]- 6268 Oct, [facility] [place] [facility] [address] [id number] [place] [address]- 5596 Oct, [facility] [place] [facility] [address] [id number] [place] [address]- 8260 Oct, [facility] [place] [facility] [address] [id number] [place] [address]- 9630 Oct, [facility] [place] [facility] [address] [id number] [place] [address]- 8463 Oct, [facility] [place] [facility] [address] [id number] [place] [address]- 4496 Oct, [facility] [place] [facility] [address] [id number] [place] [address]- 5942 Oct, [facility] [place] [facility] [address] [id number] [place] [address]- 4002 Oct, [facility] [place] [facility] [address] [id number] [place] [address]- 2179 Oct, [facility] [place] [facility] [address] [id number] [place] [address]- 7648 Oct, [facility] [place] [facility] [address] [id number] [place] [address]- 1728 Oct, [facility] [place] [facility] [address] [id number] [place] [address]- 8231 Oct, [facility] [place] [facility] [address] [id number] [place] [address]- 0358 Sep, [facility] [place] [facility] [address] [id number] [place] [address]- 3890 Sep, [facility] [place] [facility] [address] [id number] [place] [address]- 2677 Sep, [facility] [place] [facility] [address] [id number] [place] [address]- 9990 Sep, [facility] [place] [facility] [address] [id number] [place] [address]- 5072 Sep, [facility] [place] [facility] [address] [id number] [place] [address]- 1886 Sep, [facility] [place] [facility] [address] [id number] [place] [address]- 3168 Sep, [facility] [place] [facility] [address] [id number] [place] [address]- 0025 Sep, [facility] [place] [facility] [address] [id number] [place] [address]- 7543 Aug, [facility] [place] [facility] [address] [id number] [place] [address]- 9711 Aug, [facility] [place] [facility] [address] [id number] [place] [address]- 0680 Aug, [facility] [place] [facility] [address] [id number] [place] [address]- 9343 Aug, [facility] [place] [facility] [address] [id number] [place] [address]- 7643 Aug, [facility] [place] [facility] [address] [id number] [place] [address]- 7539 Aug, [facility] [place] [facility] [address] [id number] [place] [address]- 7201 Aug, [facility] [place] [facility] [address] [id number] [place] [address]- 2297 Aug, [facility] [place] [facility] [address] [id number] [place] [address]- 0378 July, [facility] [place] [facility] [address] [id number] [place] [address]- 8412 July, [facility] [place] [facility] [address] [id number] [place] [address]- 5111 July, [facility] [place] [facility] [address] [id number] [place] [address]- 9657 July, [facility] [place] [facility] [address] [id number] [place] [address]- 8725 July, [facility] [place] [facility] [address] [id number] [place] [address]- 9241 July, [facility] [place] [facility] [address] [id number] [place] 2195 July, [facility] [place] [facility] [address] [id number] [place] [address]- 9000 July, [facility] [address] [id number] [place] [address]- 2805 Jun, [facility] [place] [facility] [address] [id number] [place] [address]- 6270 Jun, [facility] [place] [facility] [address] [id number] [place] [address]- 5883 Jun, [facility] [place] [facility] [address] [id number] [place] [address]- 2073 Jun, [facility] [place] [facility] [address] [id number] [place] [address]- 7418 Jun, [facility] [place] [facility] [address] [id number] [place] [address]- 6510 Jun, [facility] [address] [id number] [place] [address]- 7003 Jun, [facility] [place] [facility] [address] [id number] [place] [address]- 7227 Jun, [facility] [place] [facility] [address] [id number] [place] [address]- 9713 Jun, [facility] [place] [facility] [address] [id number] [place] [address]- 6377 Jun, [facility] [place] [facility] [address] [id number] [place] [address]- 1357 Jun, [facility] [place] [facility] [address] [id number] [place] [address]- 6977 Jun, [facility] [place] [facility] [address] [id number] [place] [address]- 0478 May, [facility] [place] [facility] [address] [id number] [place] [address]- 2790 May, [facility] [place] [facility] [address] [id number] [place] [address]- 4822 May, [facility] [place] [facility] [address] [id number] [place] [address]- 3891 26 May, 2013 [facility] [place] [facility] [address] [id number] [place] [address]- 9757 13 May, 2013 [facility] [place] [facility] [address] [id number] [place] [address]- 0505 13 May, 2013 [facility] [place] [facility] [address] [id number] [place] [address]- 4644 12 May, 2013 [facility] [place] [facility] [address] [id number] [place] [address]- 2608 12 May, 2013 [facility] [place] [facility] [address] [id number] [place] [address]- 1798 11 May, 2013 [facility] [place] [facility] [address] [id number] [place] [address]- 6915 May, [facility] [place] [facility] [address] [id number] [place] [address]- 1024 11 May, 2013 [facility] [place] [facility] [address] [id number] [place] [address]- 5059 May, [facility] [place] [facility] [address] [id number] [place] [address]- 4103 10 May, 2013 [facility] [place] [facility] [address] [id number] [place] [address]- 2116 May, [facility] [place] [facility] [address] [id number] [place] [address]- 9496 Apr, [facility] [place] [facility] [address] [id number] [place] [address]- 8280 Apr, [facility] [place] [facility] [address] [id number] [place] [address]- 7284 Apr, [facility] [place] [facility] [address] [id number] [place] [address]- 6673 Apr, [facility] [place] [facility] [address] [id number] [place] [address]- 2802 Apr, [facility] [place] [facility] [address] [id number] [place] [address]- 2166 Apr, [facility] [place] [facility] [address] [id number] [place] [address]- 8827 Mar, [facility] [place] [facility] [address] [id number] [place] [address]- 7551 Mar, [facility] [place] [facility] [address] [id number] [place] [address]- 6161 Mar, [facility] [place] [facility] [address] [id number] [place] [address]- 1507 Mar, [facility] [place] [facility] [address] [id number] [place] [address]- 5166 Mar, [facility] [place] [facility] [address] [id number] [place] [address]- 0161 Mar, [facility] [place] [facility] [address] [id number] [place] [address]- 5406 Mar, [facility] [place] [facility] [address] [id number] [place] [address]- 4077 Mar, [facility] [place] [facility] [address] [id number] [place] [address]- 5632 Mar, [facility] [place] [facility] [address] [id number] [place] [address]- 6792 Mar, [facility] [place] [facility] [address] [id number], [place] [address]- 9518 Mar, [facility] [place] [facility] [address] [id number] [place] [address]- 1554 Mar, [facility] [place] [facility] [address] [id number] [place] [address]- 2554 Mar, [facility] [place] [facility] [address] [id number] [place] [address]- 8855 Mar, [facility] [place] [facility] [address] [id number] [place] [address]- 3908 Feb, 2012 [facility] [address] [id number] [place] [address]- 8997 Feb, [facility] [place] [facility] [address] [id number] [place] [address]- 8996 Feb, [facility] [place] [facility] [address] [id number] [place] [address]- 9216 Feb, [facility] [place] [facility] [address] [id number] [place] [address] Feb, [facility] [place] [facility] [address] [id number] [place] [address] Feb, [facility] [place] [facility] [address] [id number] [place] [address] Feb, [facility] [place] [facility] [address] [id number] [place] [address] 48[address] Feb, [facility] [place] [facility] [address] [id number] [place] [address] Feb, [facility] [place] [facility] [address] [id number] [place] [address] Feb, [facility] [place] [facility] [address] [id number] [place] [address] Feb, [facility] [place] [facility] [address] [id number] [place] [address] Feb, [facility] [place] [facility] [address] [id number] [place] [address] 150[address] Feb, [facility] [place] [facility] [address] [id number] [place] [address] Feb, [facility] [place] [facility] [address] [id number] [place] [address] Feb, [facility] [place] [facility] [address] [id number] [place] [address] Feb, 2012 [facility] [place] [facility] [address] [id number] [place] [address] 24 Dec, 2012 [facility] [place] [facility] [address] [id number] [place] [address]248 24 Dec, 2012 [facility] [place] [facility] [address] [id number] [place] [address] 7724 16 Dec, 2012 [facility] [place] [facility] [address] [id number] [place] [address]- [address]043 16 Dec, 2012 [facility] [place] [facility] [address] [id number] [place] [address]- 6687 16 Dec, 2012 [facility] [place] [facility] [address] [id number] [place] [address] 16 Dec, 2012 [facility] [place] [facility] [address] [id number] [place] [address]- [address]255 14 Dec, 2012 [facility] [place] [facility] [address] [id number], [place] [address] 14 Dec, 2012 [facility] [place] [facility] [address] [id number] [place] [address] 7209 10 Dec, 2012 [facility] [place] [facility] [address] [id number], [place] [address]10 10 Dec, 2012 [facility] [place] [facility] [address] [id number], [place] [address] 10 Dec, 2012 [facility] [place] [facility] [address] [id number], [place] [address] 10 Dec, 2012 [facility] [place] [facility] [address] [id number] [place] [address]- 4[address] 03 Dec, 2012 [facility] [place] [facility] [address] [id number], [place] [address] 25 Nov, 2012 [facility] [place] [facility] [address] [id number], [place] [address] 20 Nov, 2012 [facility] [place] [facility] [address] [id number] [place] [address]- 2486 18 Nov, 2012 [facility] [address] [id number] [place] [address] 5034 16 Nov, 2012 [facility] [place] [facility] [address] [id number] [place] [address]- 6176 12 Nov, 2012 [facility] [address] [id number] [place] [address]- 9319 11 Nov, 2012 [facility] [place] [facility] [address] [id number] [place] [address] 7455 05 Nov, 2012 [facility] [place] [facility] [address] [id number] [place] [address] 8275 15 Oct, 2012 [facility] [place] [facility] [address] [id number] [place] [address]36 Oct, [facility] [address] [id number] [place] [address] 4308 24 Sep, 2012 [facility] [place] [facility] [address] [id number] [place] [address]97 Sep, [facility] [place] [facility] [address] [id number] [place] [address] Sep, [facility] [place] [facility] [address] [id number] [place] [address]- 1003 Sep, [facility] [place] [facility] [address] [id number] [place] [address]- 1995 15 Sep, 2012 [facility] [place] [facility] [address] [id number] [place] [address] 5832 Sep, [facility] [place] [facility] [address] [id number] [place] [address] 2442 Sep, [facility] [place] [facility] [address] [id number] [place] [address]- [address]26 Aug, [facility] [place] [facility] [address] [id number] [place] [address]- 6732 Aug, [facility] [place] [facility] [address] [id number] [place] [address] 8356 16 Aug, 2012 [facility] [place] [facility] [address] [id number] [place] [address] 2956 Aug, [facility] [place] [facility] [address] [id number] [place] [address]- 5636 Aug, [facility] [place] [facility] [address] [id number] [place] [address]013 Aug, [facility] [address] [id number] [place] [address]- 2663 Aug, [facility] [place] [facility] [address] [id number] [place] [address]- 9084 Aug, [facility] [place] [facility] [address] [id number] [place] [address]- [address]114 July, [facility] [place] [facility] [address] [id number] [place] [address] 4056 July, [facility] [address] [id number] [place] [address]- 6489 July, [facility] [place] [facility] [address] [id number] [place] [id number] July, [facility] [place] [facility] [address] [id number] [place] [address]- 8966 July, [facility] [place] [facility] [address] [id number] [place] [address]606 Jun, [facility] [place] [facility] [address] [id number] [place] [address] 2546 May, [facility] [place] [facility] [address] [id number] [place] [address]- [address]776 14 May, 2012 [facility] [place] [facility] [address] [id number] [place] [address]- 1726 04 May, 2012 [facility] [place] [facility] [address] [id number] [place] [address]- 9126 Apr, [facility] [address] [id number] [place] [address]- 4836 Apr, [facility] [place] [facility] [address] [id number] [place] [address]- 4766 Apr, [facility] [place] [facility] [address] [id number] [place] [address]- 4786 Mar, [facility] [place] [facility] [address] [id number] [place] [address]- 8489 Mar, [facility] [place] [facility] [address] [id number] [place] [address]- 4332 Mar, [facility] [place] [facility] [address] [id number] [place] [address]- [address]878 Mar, [facility] [address] [id number] [place] [address]- 1117 Mar, [facility] [place] [facility] [address] [id number] [place] [address] Mar, [facility] [address] [id number] [place] [address] Mar, [facility] [place] [facility] [address] [id number] [place] [address] Feb, [facility] [address] [id number] [place] [address] 31 Feb, 2012 [facility] [place] [facility] [address] [id number] [place] [address] 18 Feb, 2012 [facility] [place] [facility] [address] [id number] [place] [address] 18 Feb, 2012 [facility] [place] [facility] [address] [id number] [place] [address] 7085 17 Feb, 2012 [facility] [place] [facility] [address] [id number] [place] [address] 5979 17 Feb, 2012 [facility] [place] [facility] [address] [id number] [place] [address] Feb, [facility] [place] [facility] [address] [id number] [place] [address] 6797 Feb, [facility] [place] [facility] [address] [id number] [place] [address] Jan, [facility] [place] [facility] [address] [id number] [place] [address] Jan, [facility] [place] [facility] [address] [id number] [place] [address] 2590 Jan, [facility] [place] [facility] [address] [id number] [place] [address] 1750 Jan, [facility] [place] [facility] [address] [id number] [place] [address] Jan, [facility] [place] [facility] [address] [id number] [place] [address] 7887 Jan, [facility] [place] [facility] [address] [id number] [place] [address] 1738 Jan, [facility] [place] [facility] [address] [id number] [place] [address] 29[address] Jan, [facility] [address] [id number] [place] [address] 58[address] Jan, [facility] [place] [facility] [address] [id number] [place] [address] Jan, [facility] [place] [facility] [address] [id number] [place] [address] 8[address] Jan, [facility] [place] [facility] [address] [id number] [place] [address] 7181 Jan, [facility] [place] [facility] [address] [id number] [place] [address]- 9078 Jan, [facility] [place] [facility] [address] [id number] [place] [address]- 7632 Jan, [facility] [place] [facility] [address] [id number] [place] [address]- 7023 Jan, [facility] [place] [facility] [address] [id number] [place] [address]- 4[address] Jan, [facility] [place] [facility] [address] [id number] [place] [address] 9549 Dec, [facility] [place] [facility] [address] [id number] [place] [address] 9990 Dec, [facility] [place] [facility] [address] [id number] [place] [address]83 Dec, [facility] [place] [facility] [address] [id number] [place] [address] Dec, [facility] [place] [facility] [address] [id number] [place] [address]34 Dec, [facility] [place] [facility] [address] [id number] [place] [address] 7116 Dec, [facility] [place] [facility] [address] [id number] [place] [address] 0597 Dec, [facility] [place] [facility] [address] [facility] [id number], [place] [address] Dec, [facility] [place] [facility] [address] [id number], [place] [address] 6[address] Dec, [facility] [place] [facility] [address] [id number], [place] [address] 05 Dec, 2011 [facility] [place] [facility] [address] [id number] [place] [address] 2445 18 Nov, 2011 [facility] [place] [facility] [address] [id number], [place] [address] 1446 13 Nov, 2011 [facility] [place] [facility] [address] [facility] [id number], [place] [address]48 24 Oct, 2011 [facility] [place] [facility] [address] [id number], [place] [address] Oct, [facility] [place] [facility] [address] [id number] [place] [address]124 Oct, [facility] [place] [facility] [address] [id number] [place] [address] 7567 Oct, [facility] [place] [facility] [address] [id number] [place] [address] 8286 Oct, [facility] [place] [facility] [address] [id number] [place] [address]- 8218 Oct, [facility] [place] [facility] [address] [id number] [place] [address] 4901 Oct, [facility] [place] [facility] [address] [id number] [place] [address] 8700 Sep, [facility] [place] [facility] [address] [id number] [place] [address]- 8818 Aug, [facility] [place] [facility] [address] [id number] [place] [address]- 9666 Aug, [facility] [place] [facility] [address] [id number] [place] [address]- 4542 Aug, [facility] [place] [facility] [address] [facility]] [id number] [place] [address]- 1693 Aug, [facility] [place] [facility] [address] [id number] [place] [address]- 0878 Aug, [facility] [place] [facility] [address] [id number] [place] [address]- 6114 July, [facility] [place] [facility] [address] [id number] [place] [address]- 0537 July, [facility] [place] [facility] [address] [facility]] [id number] [place] [address] 8809 July, [facility] [place] [facility] [address] [id number] [place] [address]- 6918 Jun, [facility] [place] [facility] [address] [id number] [place] [address]- 1653 05 Jun, 2011 [facility] [place] [facility] [address] [id number] [place] [address]- 5396 04 Jun, 2011 [facility] [place] [facility] [address] [id number] [place] [address]- 2736 Jun, [facility] [place] [facility] [address] [id number] [place] [address]- 5586 30 May, 2011 [facility] [place] [facility] [address] [id number] [place] [address] 30 May, 2011 [facility] [place] [facility] [address] [id number] [place] [address]- 2092 29 May, 2011 [facility] [place] [facility] [address] [id number] [place] [address] 5039 May, [facility] [place] [facility] [address] [id number] [place] [address]- 4708 May, [facility] [place] [facility] [address] [id number] [place] [address]- 2095 22 May, 2011 [facility] [place] [facility] [address] [id number] [place] [address]- 1796 May, [facility] [place] [facility] [address] [id number] [place] [address]- 2746 May, [facility] [place] [facility] [address] [id number] [place] [address]- 5070 08 May, 2011 [facility] [place] [facility] [address] [id number] [place] [address]- 9716 05 May, 2011 [facility] [place] [facility] [address] [id number] [place] [address]- 7326 02 May, 2011 [facility] [place] [facility] [address] [id number] [place] [address] 2546 May, [facility] [place] [facility] [address] [id number] [place] [address]- 1718 Mar, [facility] [place] [facility] [address] [id number] [place] [address]- 3708 Mar, [facility] [place] [facility] [address] [id number] [place] [address]- 3999 28 Feb, 2011 [facility] [place] [facility] [address] [id number] [place] [address] Feb, [facility] [place] [facility] [address] [id number] [place] [address]- 7144 20 Feb, 2011 [facility] [place] [facility] [address] [id number] [place] [address]- 0833 15 Feb, 2011 [facility] [place] [facility] [address] [id number] [place] [address]- 6841 Feb, [facility] [place] [facility] [address] [id number] [place] [address]- 2849 Feb, [facility] [place] [facility] [address] [id number] [place] [address]- 2544 Feb, [facility] [place] [facility] [address] [id number] [place] [address]- 7525 Jan, [facility] [place] [facility] [address] [id number] [place] [address]- 4893 Jan, [facility] [place] [facility] [address] [id number], [place] [address]- 2410 Jan, [facility] [place] [facility] [address] [id number], [place] [address]- 9996 17 Jan, 2011 [facility] [place] [facility] [address] [id number] [place] [address]- 0219 Jan, [facility] [place] [facility] [address] [id number], [place] [address]- 2118 03 Jan, 2011 [facility] [place] [facility] [address] [id number] [place] [address]- 3945 27 Dec, 2010 [facility] [place] [facility] [address] [id number] [place] [address]- 4897 27 Dec, 2010 [facility] [place] [facility] [address] [id number] [place] [address]- 1284 11 Dec, 2010 [facility] [place] [facility] [address] [id number] [place] [address]- 1226 July, [facility] [place] [facility] [address] [id number] [place] [address]- 2783 July, [facility] [place] [facility] [address] [id number] [place] [address] 2549 Feb, [facility] [place] [facility] [address] [id number] [place] [address]- 8092 Jan, [facility] [place] [facility] [address] [id number] [place] [address]- 8629 Dec, [facility] [place] [facility] [address] [id number] [place] [address]- 6493 Dec, [facility] [place] [facility] [address] [id number] [place] [address]- 0803 15 Sep, 2009 [facility] [place] [facility] [address] [id number] [place] [address]- 5761 Aug, [facility] [place] [facility] [address] [facility]] [id number] [place] [address]- 0474 Jun, [facility] [place] [facility] [address] [id number] [place] [address]- 9247 Jun, [facility] [place] [facility] [address] [id number] [place] [address]- 1393 Jan, [facility] [place] [facility] [address] [id number] [place] [address]- 7694 Jan, [facility] [place] [facility] [address] [id number] [place] [address]- 2545 Jan, [facility] [place] [facility] [address] [id number] [place] [address] Jan, [facility] [address] [facility] [id number], [place] [address]- 3216 Dec, [facility] [address] [facility]] [id number], [place] [address]- 2656 Dec, [facility] [address] [facility]] [id number], [place] [address]- 7916 Dec, [facility] [id number], [place] [address]- 5766 Nov, [facility] [address] [facility]] [id number], [place] [address]- 9412 July, [facility] [id number], [place] [address]- 1486 May, [facility] [id number], [place] [address]- 9383 Apr, [facility] [id number], [place] [address]- 9896 Feb, [facility] [address] [id number], [place] [address]- 5659 Dec, IMMUNIZATIONS No Known Immunizations SOCIAL HISTORY Never Assessed REASON FOR VISIT PALS-lamictal PLAN OF CARE VITAL SIGNS MEDICATIONS Medication Instructions Dosage Frequency Start Date End Date Duration Status Lamictal 200 mg Orally every evening 1 tablet May, 90 days Active RESULTS No Results [...]
--- OUTSIDE RECORDS SUMMARY | 2018-06-14 14:38 | XMS REPORT ---
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 Active 905268709 Problem Hyperlipidemia, unspecified E78.5 Active 83456715 Problem Type 2 diabetes mellitus with complication E11.8 Active 091596415 Problem New daily persistent headache G44.52 Active 101324409 Problem Acute bilateral low back pain with right-sided sciatica M54.41 Active 029775853 Problem Obesity, unspecified 278.00 Active 940108846 Problem Hyperlipidemia 272.4 Active 28145900 Problem Post laminectomy syndrome M96.1 Active 24052902 Problem Eye exam normal Z01.00 Active 458230574 Problem 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 Active 08365253 Problem Non compliance with medical treatment Z91.19 Active 0704339 Problem Bipolar disorder, in partial remission, most recent episode manic F31.73 Active 67197314 Problem Diabetes E11.9 Active 628760542 Problem Extreme poverty Z59.5 Active 73441196 Problem Irritable bowel syndrome with diarrhea K58.0 Active 925097274 ALLERGIES No Information ENCOUNTERS Encounter Location Date Diagnosis [facility] [address] [address] Nov, [facility] [address] [address] Nov, [facility] [id number] [place] [address] 93384- 3194 Nov, [facility] [id number] [place] [address] 38620- 5429 Nov, [facility] [id number] [place] [address] 45349- 5435 Oct, Bipolar 1 disorder F31.9 ; 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 and Extreme poverty Z59.5 [place] [address] [address] Oct, Type 2 diabetes mellitus with hyperglycemia E11.65 ; 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.4 and Other acute gastritis without hemorrhage K29.00 [facility] [id number] [place] [address] 77609- 7538 Oct, Bipolar 1 disorder F31.9 ; 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 and Extreme poverty Z59.5 [facility] [id number] [place] [address] 06374- 0036 Sep, Diarrhea, unspecified R19.7 and Vomiting, unspecified R11.10 [facility] [id number] [place] [address] 75723- 2203 Aug, Type 2 diabetes mellitus with complication E11.8 [facility] [place] [id number] [place] [address] 36271- 7430 Aug, [facility] [id number] [place] [address] 57158- 1183 Aug, Bipolar 1 disorder F31.9 ; 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 and Extreme poverty Z59.5 [place] [id number] [place] [address] 77807- 3685 Aug, 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 and Bipolar disorder, in partial remission, most recent episode manic F31.73 [facility] [place] [id number] [place] [address] 69234- 5466 Aug, Bipolar 1 disorder F31.9 [place] [address] [address] Aug, [facility] [id number] [place] [address] 94835- 7974 Aug, [facility] [id number] [place] [address] 56311- 5793 Aug, Bipolar 1 disorder F31.9 ; 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 and Extreme poverty Z59.5 [place] [id number] [place] [address] 08300- 6579 July, Type 2 diabetes mellitus with complication E11.8 [facility] [id number] [place] [address] 06550- 6590 July, Bipolar 1 disorder F31.9 ; 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5 [place] [address] [place] [address] 51469- 6529 May, Urinary tract infection without hematuria, site unspecified N39.0 [place] [id number] [place] [address] 79656- 9436 May, Bipolar 1 disorder F31.9 ; 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 and Extreme poverty Z59.5 [place] [address] [place] [address] 33984- 5446 Apr, Diabetes E11.9 and Breast cancer screening Z12.31 [facility] [id number] [place] [address] 72185- 7421 Apr, Bipolar 1 disorder F31.9 and 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 [facility] [id number] [place] [address] 56939- 4638 Mar, Bipolar 1 disorder F31.9 ; 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 and Extreme poverty Z59.5 [place] [address] 01573- 8796 Mar, New daily persistent headache G44.52 ; Leg pain 729.5 and History of carpal tunnel release Z98.890 [place] [address] [place] [address] 18249- 1165 Mar, Hyperlipidemia, unspecified E78.5 [place] [address] 18340- 7231 Mar, Bipolar 1 disorder F31.9 ; 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 and Extreme poverty Z59.5 [place] [address] 17569- 5288 Feb, Bipolar 1 disorder F31.9 ; 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 and Extreme poverty Z59.5 [facility] [place] [id number] [place] [address] 73397- 2543 Feb, Diabetes E11.9 [place] [address] 99874- 9200 Feb, Viral syndrome B34.[address] 80681- 5024 Jan, Other viral agents as the cause of diseases classified elsewhere B97.89 and Acute upper respiratory infection, unspecified J06.9 [facility] [place] [id number] [place] [address] 83626- 1207 Jan, Bipolar 1 disorder F31.9 and 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 [facility] [id number] [place] [address] 28514- 3100 Jan, Bipolar 1 disorder F31.9 ; 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 and Extreme poverty Z59.5 [place] [facility] [id number] [place] [address] 68990- 6912 Dec, Diabetes E11.9 [facility] [address] [address]80[address]- [address] Dec, Diabetes E11.9 and Encounter for immunization Z23 [place] [id number] [place] [address] 48134- 2540 Dec, Bipolar 1 disorder F31.9 ; 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 and Extreme poverty Z59.5 [place] [id number] [place] [address] 50968- 9422 Dec, Back pain M54.9 [facility] [id number] [place] [address] 67395- 7295 07 Nov, 2016 [facility] [id number] [place] [address] 67430- 4258 Nov, Bipolar 1 disorder F31.9 ; 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 and Extreme poverty Z59.5 [place] [id number] [place] [address] 46741- 5617 Nov, Bipolar 1 disorder F31.9 ; 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 and Extreme poverty Z59.5 [place] [address] [place] [address] 02369- 2946 Oct, 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 and Bipolar 1 disorder F31.9 [place] [id number] [place] [address] 69965- 6036 Oct, Back pain M54.9 [facility] [id number] [place] [address] 73761- 6429 Oct, Bipolar 1 disorder F31.9 ; 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 and Extreme poverty Z59.5 [place] [address] [place] [address] 72617- 1958 Oct, 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 and Type 2 diabetes mellitus with complication E11.8 [facility] [id number] [place] [address] 74536- 3193 Sep, Bipolar 1 disorder F31.9 ; 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 and Extreme poverty Z59.5 [facility] [id number] [place] [address] 44026- 9717 Sep, 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 and Bipolar 1 disorder F31.9 [place] [id number] [place] [address] 34362- 6735 Sep, Bipolar 1 disorder F31.9 ; 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 and Extreme poverty Z59.5 [facility] [id number] [place] [address] 76568- 1130 Aug, Diabetes E11.9 ; Hyperlipidemia, unspecified E78.5 and Lumbar radiculopathy M54.16 [facility] [address] [place] [address] 70672- 4082 Aug, Bipolar 1 disorder F31.9 ; 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 and Extreme poverty Z59.5 [facility] [id number] [place] [address] 99937- 4394 Aug, [facility] [place] [id number] [place] [address] 46050- 6605 Aug, [facility] [id number] [place] [address] 92034- 8491 Aug, [facility] [place] [id number] [place] [address] 47716- 4172 July, [facility] [place] [id number] [place] [address] 97107- 8031 July, Acute bilateral low back pain with right-sided sciatica M54.41 [place] [address] [address]- 1883 July, Bipolar 1 disorder F31.9 ; 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 and Extreme poverty Z59.5 [place] [id number] [place] [address] 01752- 3124 July, Back pain M54.9 and Diabetes E11.9 [facility] [id number] [place] [address] 75872- 5031 Jun, Bipolar 1 disorder F31.9 ; 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 and Extreme poverty Z59.5 [place] [id number] [place] [address] 19211- 7174 Jun, Bipolar 1 disorder F31.9 ; 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 and Extreme poverty Z59.5 [facility] [address] [place] [address] 16613- 4352 May, Visit for pelvic exam Z01.419 ; Acute vaginitis N76.0 and Diabetes E11.9 [facility] [id number] [place] [address] 27126- 7792 May, Bipolar 1 disorder F31.9 ; 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 and Extreme poverty Z59.5 [place] [address] [place] [address] 76061- 0872 May, [facility] [place] [id number] [place] [address] 81659- 9211 May, [facility] [place] [id number] [place] [address] 68022- 9457 May, Bipolar 1 disorder F31.9 ; 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 and Extreme poverty Z59.5 [place] [address] [place] [address] 76823- 3037 May, Hyperlipidemia, unspecified E78.5 [place] [address] [place] [address] 91087- 5131 Apr, Breast cancer screening Z12.39 [facility] [place] [id number] [place] [address] 41317- 6225 Mar, [facility] [id number] [place] [address] 95532- 4253 Mar, Bipolar disorder, current episode mixed, unspecified F31.60 [facility] [place] [id number] [place] [address] 22541- 8157 Mar, Bipolar 1 disorder F31.9 ; 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 and Extreme poverty Z59.5 [place] [id number] [place] [address] 78072- 1646 Feb, Acute nasopharyngitis J00 [place] [address] 62091- 3271 27 Feb, 2016 Dental examination Z01.20 [place] [address] 23911- 3891 21 Feb, 2016 Dental cavities K02.9 and Chronic periodontitis, unspecified K05.30 [facility] [id number] [place] [address] 40601- 6118 13 Feb, 2016 Low back pain M54.5 and Extreme poverty Z59.5 [place] [id number] [place] [address] 36574- 3138 Feb, [facility] [id number] [place] [address] 06933- 1349 05 Feb, 2016 Routine gynecological examination V72.31 ; Breast cancer screening Z12.39 and Herpes simplex type 1 infection B00.9 [facility] [id number] [place] [address] 95382- 0916 Feb, Diabetes E11.9 [facility] [place] [address] [place] [address] 68944- 9701 Feb, Encounter for dental examination and cleaning without abnormal findings Z01.20 [place] [address] 35278- 4404 Jan, Hyperlipidemia, unspecified E78.5 [facility] [address] [place] [address] 47841- 0827 Jan, Bipolar 1 disorder F31.9 ; 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 and Extreme poverty Z59.5 [place] [address] [place] [address] 74805- 0149 Jan, Diabetes E11.9 [place] [address] 530885- 5331 17 Jan, 2016 Diabetes E11.9 [facility] [id number] [place] [address] 40598- 3336 14 Dec, 2015 Bipolar 1 disorder F31.9 ; 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 and Extreme poverty Z59.5 [facility] [id number] [place] [address] 33485- 7511 13 Dec, 2015 Bipolar disorder, current episode mixed, unspecified F31.60 and 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 [place] [address] [place] [address] 91760- 3257 16 Nov, 2015 Bipolar 1 disorder F31.9 ; 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 ; Extreme poverty Z59.5 and Non compliance with medical treatment Z91.19 [place] [id number] [place] [address] 91317- 3313 Oct, [place] [id number] [place] [address] 69730- 1209 Oct, Dental caries K02.9 [place] [id number] [place] [address] 54936- 3819 Oct, Low back pain M54.5 and Other chronic pain G89.29 [facility] [address] [place] [address] 38886- 7019 Oct, Bipolar 1 disorder F31.9 ; 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 ; Extreme poverty Z59.5 and Non compliance with medical treatment Z91.19 [place] [address], [place] [address]- 7404 Oct, [place] [id number] [place] [address] 00768- 3239 Oct, [facility] [place] [id number] [place] [address] 60066- 4644 Oct, Dental examination Z01.20 [facility] [place] [address] [place] [address] 86735- 7759 Oct, Bipolar 1 disorder F31.9 ; 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 ; Extreme poverty Z59.5 and Non compliance with medical treatment Z91.19 [facility] [address] [place] [address] 31125- 0056 Oct, [facility] [place] [id number] [place] [address] 40197- 3843 Sep, Type 2 diabetes mellitus with complication E11.8 [facility] [id number] [place] [address] 95066- 1129 Sep, Bipolar disorder, current episode mixed, unspecified F31.60 [facility] [id number] [place] [address] 38673- 1625 Sep, Bipolar disorder, current episode mixed, unspecified F31.60 [facility] [address] [place] [address] 68700- 2693 Sep, Bipolar disorder, in partial remission, most recent episode manic F31.73 ; 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 ; Extreme poverty Z59.5 and Non compliance with medical treatment Z91.19 [place] [address] [place] [address] 79988- 9983 Aug, Bipolar disorder, in partial remission, most recent episode manic F31.73 ; 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 ; Extreme poverty Z59.5 and Non compliance with medical treatment Z91.19 [place] [address] [place] [address] 98780- 5469 Aug, Bipolar disorder, in partial remission, most recent episode manic F31.73 ; 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 ; Extreme poverty Z59.5 and Non compliance with medical treatment Z91.19 [place] [address] [place] [address] 39806- 5850 Aug, [place] [id number] [place] [address] 35878- 0667 July, Bipolar disorder, in partial remission, most recent episode manic F31.73 ; 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 ; Extreme poverty Z59.5 and Non compliance with medical treatment Z91.19 [place] [address] [place] [address] 13288- 8511 July, Bipolar disorder, current episode mixed, unspecified F31.60 [place] [address] [place] [address] 54198- 3748 July, Bipolar disorder, in partial remission, most recent episode manic F31.73 ; 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 ; Extreme poverty Z59.5 and Non compliance with medical treatment Z91.19 [place] [address] [place] [address] 81791- 8067 July, [facility] current 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 Z79.891 and Chronic pain G89.29 [place] [address] [place] [address] 52377- 2817 Jun, 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 Z79.891 and Bipolar 1 disorder F31.9 [place] [address] [place] [address] 19110- 9434 Jun, [facility] [id number] [place] [address] 55990- 3680 Jun, [place] [id number] [place] [address] 39795- 4659 Jun, [facility] [id number] [place] [address] 57366- 2407 Jun, Bipolar disorder, in partial remission, most recent episode manic F31.73 ; 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 and Non compliance with medical treatment Z91.19 [place] [address] [place] [address] 92035- 2148 May, Bipolar disorder, in partial remission, most recent episode manic F31.73 ; 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 and Non compliance with medical treatment Z91.19 [facility] [address] [place] [address] 62776- 4311 May, Bipolar disorder, in partial remission, most recent episode manic F31.73 [facility] [id number] [place] [address] 28626- 8496 May, Diabetes E11.9 and Chronic pain G89.29 [facility] [id number] [place] [address] 33130- 8339 May, [facility] [address] [place] [address] 72333- 4722 May, Bipolar disorder, in partial remission, most recent episode manic F31.73 ; Non compliance with medical treatment Z91.19 and 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 [place] [address] [place] [address] 29717- 0901 May, Type 2 diabetes mellitus with complication E11.8 and Back pain M54.9 [place] [address] [place] [address] 71293- 8153 May, Bipolar disorder, in partial remission, most recent episode manic F31.73 and 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 [place] [address] [place] [address] 18341- 6731 Apr, [facility] [id number] [place] [address] 25371- 2117 Apr, [place] [address] [place] [address] 44249- 9351 Apr, [facility] [id number] [place] [address] 71099- 5873 09 Apr, 2015 Diabetes E11.9 ; Irritable bowel syndrome with diarrhea K58.0 and Lumbar radiculopathy M54.16 [facility] [id number] [place] [address] 38765- 1246 02 Apr, 2015 Breast screening Z12.[address] 90735- 3976 02 Apr, 2015 Bipolar disorder, in partial remission, most recent episode manic F31.73 ; Non compliance with medical treatment Z91.19 and 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 [place] [address]- 3656 Mar, Edema, unspecified type R60.9 and Type 2 diabetes mellitus with complication E11.[address] 03085- 9473 Mar, Bipolar disorder, in partial remission, most recent episode manic F31.73 ; Non compliance with medical treatment Z91.19 ; 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 and Extreme poverty Z59.5 [place] [id number] [place] [address] 63486- 5901 Mar, Bipolar disorder, current episode mixed, unspecified F31.60 ; 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 ; Extreme poverty Z59.5 and Generalized anxiety disorder F41.1 [place] [id number] [place] [address] 03398- 9084 Mar, Bipolar disorder, in partial remission, most recent episode manic F31.73 ; 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 and Extreme poverty Z59.5 [place] [id number] [place] [address] 75088- 3195 Feb, Bipolar disorder, in partial remission, most recent episode manic F31.73 ; 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 and Extreme poverty Z59.[address] 91288- 8336 Feb, Bipolar disorder, in partial remission, most recent episode manic F31.73 ; 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 and Extreme poverty Z59.5 [place] [id number] [place] [address] 44555- 0576 Feb, [place] [id number] [place] [address] 16304- 5232 Jan, Type 2 diabetes mellitus with complication E11.8 and Petechiae R23.3 [place] [address] 75958- 0243 Jan, Type 2 diabetes mellitus with complication E11.8 ; Edema, unspecified R60.9 ; Petechiae R23.3 and Diabetes E11.9 [place] [id number] [place] [address] 91598- 1184 Jan, Bipolar disorder, in partial remission, most recent episode manic F31.73 ; 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 and Extreme poverty Z59.5 [place] [id number] [place] [address] 85065- 1985 Jan, Bipolar disorder, in partial remission, most recent episode manic F31.73 ; 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 and Extreme poverty Z59.5 [place] [id number] [place] [address] 78494- 0516 Dec, Bipolar disorder, in partial remission, most recent episode manic F31.73 [place] [id number] [place] [address] 19007- 1522 Dec, Edema, due to unspecified malnutrition type, unspecified edema R60.9 and Essential hypertension I10 [place] [address] 468050- 8474 Dec, Bipolar disorder, in partial remission, most recent episode manic F31.73 [place] [id number] [place] [address] 01963- 3759 Nov, Bipolar I disorder, most recent episode (or current) mixed, unspecified 296.60 [facility] [id number] [address] Nov, Stress incontinence, female 625.6 ; Back pain 724.5 and Leg pain 729.5 [facility] [id number] [address] Nov, Generalized anxiety disorder 300.02 and Bipolar II disorder 296.89 [facility] [id number] [place] [id number] Nov, Bipolar I disorder, most recent episode (or current) mixed, unspecified 296.60 [place] [facility] [id number] [place] [address] 89571- 5481 Oct, [facility] [id number] [place] [address] 86689- 6997 Oct, [facility] [id number] [place] [address] 97301- 0116 Oct, [facility] [id number] [place] [address] 95502- 1008 Oct, Bipolar I disorder, most recent episode (or current) mixed, unspecified 296.60 [facility] [address] [address] 1536 Sep, Diabetes 250.00 [facility] [id number] [place] [address] 73155- 1983 Sep, Bipolar I disorder, most recent episode (or current) mixed, unspecified 296.60 [facility] [address] [address] 2270 Sep, [facility] [id number] [address] 4970 Sep, [facility] [address] [address]- 2992 Sep, Bipolar I disorder, most recent episode (or current) mixed, unspecified 296.60 [facility] [address] [address] 1344 Sep, Bipolar I disorder, most recent episode (or current) mixed, unspecified 296.60 [facility] [address] 9820 Sep, [facility] [id number] [place] [address] [id number]- 1556 Sep, Anxiety 300.00 ; Diabetes 250.00 and Hyperlipidemia 272.4 [facility] [id number] [place] [address] 70314- 7359 Aug, [facility] [id number] [place] [address] 76728- 3419 Aug, [facility] [id number] [place] [address] 95563- 1074 Aug, [facility] [id number] [place] [address] 21000- 5804 Aug, Bipolar I disorder, most recent episode (or current) mixed, unspecified 296.60 [facility] [id number] [place] [address] 82290- 3007 Aug, Generalized anxiety disorder 300.02 and Bipolar II disorder 296.89 [facility] [address] [address]- 4328 July, Bipolar I disorder, most recent episode (or current) mixed, unspecified 296.60 [facility] [address] [address]- 8901 July, Cough 786.2 [facility] [id number] [place] [address] 77168- 5920 July, Bipolar I disorder, most recent episode (or current) mixed, unspecified 296.60 [facility] [address] [address]- 8717 Jun, Diabetes 250.00 [facility] [id number] [place] [address] 9402 14 Jun, 2014 [facility] [place] [facility] [address] [id number] [place] [address]- 3465 13 Jun, 2014 [facility] [place] [facility] [address] [id number] [place] [address]- 0195 24 May, 2014 [facility] [place] [facility] [address] [id number] [place] [address]- 6883 24 May, 2014 [facility] [place] [facility] [address] [id number] [place] [address]- 4929 10 May, 2014 [facility] [place] [facility] [address] [id number] [place] [address]- 4066 10 May, 2014 [facility] [place] [facility] [address] [facility] [id number] [place] [address]- 6216 10 May, 2014 [facility] [place] [facility] [address] [facility] [id number] [place] [address]- 4357 10 May, 2014 [facility] [place] [facility] [address] [facility] [id number] [place] [address]- 7605 20 Apr, 2014 [facility] [place] [facility] [address] [facility] [id number] [place] [address]- 0921 20 Apr, 2014 [facility] [place] [facility] [address] [facility] [id number] [place] [address]- 7708 11 Apr, 2014 [facility] [place] [facility] [address] [facility] [id number] [place] [address]- 2669 11 Apr, 2014 [facility] [place] [facility] [address] [facility] [id number] [place] [address]- 2545 10 Apr, 2014 [facility] [place] [facility] [address] [id number] [place] [address]- 1841 10 Apr, 2014 [facility] [place] [facility] [address] [facility] [id number] [place] 6149 05 Apr, 2014 [facility] [place] [facility] [address] [facility] [id number] [place] [address]- 0906 Apr, [facility] [place] [facility] [address] [id number] [place] [address]- 9538 Mar, [facility] [place] [facility] [address] [id number] [place] [address]- 4285 Mar, [facility] [place] [facility] [address] [id number] [place] [address]- 6706 Mar, [facility] [place] [facility] [address] [id number] [place] [address]- 2747 Mar, [facility] [place] [facility] [address] [id number] [place] [address]- 2026 Mar, [facility] [place] [facility] [address] [id number] [place] [address]- 9158 Mar, [facility] [place] [facility] [address] [id number] [place] [address]- 4672 Mar, [facility] [place] [facility] [address] [id number] [place] [address]- 9238 Mar, [facility] [place] [facility] [address] [id number] [place] [address]- 0938 Feb, [facility] [place] [facility] [address] [id number] [place] [address]- 8097 Feb, [facility] [place] [facility] [address] [id number] [place] [address]- 6410 Feb, [facility] [place] [facility] [address] [id number] [place] [address]- 4670 Feb, [facility] [place] [facility] [address] [id number] [place] [address]- 4578 Feb, [facility] [place] [facility] [address] [id number] [place] [address]- 7879 Feb, [facility] [place] [facility] [address] [id number] [place] [address]- 5137 Feb, [facility] [place] [facility] [address] [id number] [place] [address]- 7909 Feb, [facility] [place] [facility] [address] [id number] [place] [address]- 7911 Feb, [facility] [place] [facility] [address] [id number] [place] [address]- 3195 Feb, [facility] [place] [facility] [address] [id number] [place] [address]- 5146 Jan, [facility] [place] [facility] [address] [id number] [place] [address]- 0356 Jan, [facility] [place] [facility] [address] [id number] [place] [address]- 9675 Jan, [facility] [place] [facility] [address] [id number] [place] [address]- 4620 Jan, [facility] [place] [facility] [address] [id number] [place] [address]- 4693 Jan, [facility] [place] [facility] [address] [id number] [place] [address]- 8665 Jan, [facility] [place] [facility] [address] [id number] [place] [address]- 3446 Jan, [facility] [place] [facility] [address] [id number] [place] [address]- 7169 Jan, [facility] [place] [facility] [address] [id number] [place] [address]- 5884 Jan, [facility] [place] [facility] [address] [id number] [place] [address]- 3292 Jan, [facility] [place] [facility] [address] [id number] [place] [address]- 8149 Jan, [facility] [place] [facility] [address] [id number] [place] [address]- 5229 Jan, [facility] [place] [facility] [address] [id number] [place] [address]- 7106 Jan, [facility] [place] [facility] [address] [id number] [place] [address]- 8963 Jan, [facility] [place] [facility] [address] [id number] [place] [address]- 5987 Jan, [facility] [place] [facility] [address] [id number] [place] [address]- 9675 Dec, [facility] [place] [facility] [address] [id number] [place] [address]- 7982 Dec, [facility] [place] [facility] [address] [id number] [place] 5522 Dec, [facility] [place] [facility] [address] [id number] [place] [address]- 2728 Dec, [facility] [place] [facility] [address] [id number] [place] [address]- 3363 Dec, [facility] [place] [facility] [address] [id number] [place] [address]- 0550 Dec, [facility] [place] [facility] [address] [id number] [place] [address]- 4792 Dec, [facility] [place] [facility] [address] [id number] [address]- 2739 Dec, [facility] [place] [facility] [address] [id number], [place] [address]- 3819 Nov, [facility] [place] [facility] [address] [id number] [address]- 3999 25 Nov, 2013 [facility] [place] [facility] [address] [id number] [place] [address]- 9237 10 Nov, 2013 [facility] [place] [facility] [address] [id number] [place] [address]- 6516 10 Nov, 2013 [facility] [place] [facility] [address] [id number], [place] [address]- 7577 08 Nov, 2013 [facility] [place] [facility] [address] [id number], [place] [address]- 9239 08 Nov, 2013 [facility] [place] [facility] [address] [id number] [place] [address]- 2568 08 Nov, 2013 [facility] [place] [facility] [address] [id number] [place] [address]- 0105 08 Nov, 2013 [facility] [place] [facility] [address] [id number] [place] [address]- 2915 08 Nov, 2013 [facility] [place] [facility] [address] [id number] [place] [address]- 6637 08 Nov, 2013 [facility] [place] [facility] [address] [id number] [place] [address]- 1242 Nov, 2013 [facility] [place] [facility] [address] [id number] [place] [address]- 5818 Nov, 2013 [facility] [place] [facility] [address] [id number] [place] [address]- 6557 Nov, 2013 [facility] [place] [facility] [address] [id number] [place] [address]- 6609 Nov, 2013 [facility] [place] [facility] [address] [id number] [place] [address]- 5804 Nov, 2013 [facility] [place] [facility] [address] [id number] [place] [address]- 2334 Oct, [facility] [place] [facility] [address] [id number] [place] [address]- 7167 Oct, [facility] [place] [facility] [address] [id number] [place] [address]- 0652 Oct, [facility] [place] [facility] [address] [id number] [place] [address]- 4683 Oct, [facility] [place] [facility] [address] [id number] [place] [address]- 4113 Oct, [facility] [place] [facility] [address] [id number] [place] [address]- 3407 Oct, [facility] [place] [facility] [address] [id number] [place] [address]- 6743 Oct, [facility] [place] [facility] [address] [id number] [place] [address]- 2718 Oct, [facility] [place] [facility] [address] [id number] [place] [address]- 6006 Oct, [facility] [place] [facility] [address] [id number] [place] [address]- 0241 Oct, [facility] [place] [facility] [address] [id number] [place] [address]- 3556 Oct, [facility] [place] [facility] [address] [id number] [place] [address]- 9970 Oct, [facility] [place] [facility] [address] [id number] [place] [address]- 8363 Oct, [facility] [place] [facility] [address] [id number] [place] [address]- 6357 Oct, [facility] [place] [facility] [address] [id number] [place] [address]- 6044 Sep, [facility] [place] [facility] [address] [id number] [place] [address]- 6991 Sep, [facility] [place] [facility] [address] [id number] [place] [address]- 6515 Sep, [facility] [place] [facility] [address] [id number] [place] [address]- 4670 Sep, [facility] [place] [facility] [address] [id number] [place] [address]- 3496 Sep, [facility] [place] [facility] [address] [id number] [place] [address]- 5436 Sep, [facility] [place] [facility] [address] [id number] [place] [address]- 4810 Sep, [facility] [place] [facility] [address] [id number] [place] [address]- 6499 Sep, [facility] [place] [facility] [address] [id number] [place] [address]- 5080 Aug, [facility] [place] [facility] [address] [id number] [place] [address]- 3816 Aug, [facility] [place] [facility] [address] [id number] [place] [address]- 2746 Aug, [facility] [place] [facility] [address] [id number] [place] [address]- 8457 Aug, [facility] [place] [facility] [address] [id number] [place] [address]- 9489 Aug, [facility] [place] [facility] [address] [id number] [place] [address]- 7549 Aug, [facility] [place] [facility] [address] [id number] [place] [address]- 6698 Aug, [facility] [place] [facility] [address] [id number] [place] [address]- 1575 Aug, [facility] [place] [facility] [address] [id number] [place] [address]- 0294 July, [facility] [place] [facility] [address] [id number] [place] [address]- 9334 July, [facility] [place] [facility] [address] [id number] [place] [address]- 2738 July, [facility] [place] [facility] [address] [id number] [place] [address]- 8703 July, [facility] [place] [facility] [address] [id number] [place] [address]- 6015 July, [facility] [place] [facility] [address] [id number] [place] [address]- 4790 July, [facility] [place] [facility] [address] [id number] [place] [address]- 7813 July, [facility] [place] [facility] [address] [id number] [place] [address]- 3497 July, [facility] [place] [facility] [address] [id number] [place] [address]- 1494 Jun, [facility] [place] [facility] [address] [id number] [place] [address]- 7608 Jun, [facility] [place] [facility] [address] [id number] [place] [address]- 5832 Jun, [facility] [place] [facility] [address] [id number] [place] [address]- 6297 Jun, [facility] [place] [facility] [address] [id number] [place] [address]- 2190 Jun, [facility] [place] [facility] [address] [id number] [place] [address]- 0832 Jun, [facility] [place] [facility] [address] [id number] [place] [address]- 9409 Jun, [facility] [place] [facility] [address] [id number] [place] [address]- 7644 Jun, [facility] [place] [facility] [address] [id number] [place] [address]- 7793 Jun, [facility] [place] [facility] [address] [id number] [place] [address]- 2506 Jun, [facility] [place] [facility] [address] [id number] [place] [address]- 3927 Jun, [facility] [place] [facility] [address] [id number] [place] [address]- 6483 Jun, [facility] [place] [facility] [address] [id number] [place] [address]- 4567 May, [facility] [place] [facility] [address] [id number] [place] [address]- 2968 May, [facility] [place] [facility] [address] [id number] [place] [address]- 1234 May, [facility] [place] [facility] [address] [id number] [place] [address]- 3488 26 May, 2013 [facility] [place] [facility] [address] [id number] [place] [address]- 8068 13 May, 2013 [facility] [place] [facility] [address] [id number] [place] [address]- 4022 13 May, 2013 [facility] [place] [facility] [address] [id number] [place] [address]- 8957 12 May, 2013 [facility] [place] [facility] [address] [id number] [place] [address]- 5925 12 May, 2013 [facility] [place] [facility] [address] [id number] [place] [address]- 5795 11 May, 2013 [facility] [place] [facility] [address] [id number] [place] [address]- 1442 11 May, 2013 [facility] [place] [facility] [address] [id number] [place] [address]- 8545 11 May, 2013 [facility] [place] [facility] [address] [id number] [place] [address]- 3347 11 May, 2013 [facility] [place] [facility] [address] [id number] [place] [address]- 0376 10 May, 2013 [facility] [place] [facility] [address] [id number] [place] [address]- 1169 May, [facility] [place] [facility] [address] [id number] [place] [address]- 2161 Apr, [facility] [place] [facility] [address] [id number] [place] [address]- 9744 Apr, [facility] [place] [facility] [address] [id number] [place] [address]- 5367 Apr, [facility] [place] [facility] [address] [id number] [place] [address]- 7479 Apr, [facility] [place] [facility] [address] [id number] [address]- 7516 Apr, [facility] [place] [facility] [address] [id number] [place] [address]- 7475 Apr, [facility] [place] [facility] [address] [id number] [place] [address]- 5456 Mar, [facility] [place] [facility] [address] [id number] [place] [address]- 9049 Mar, [facility] [place] [facility] [address] [id number] [place] [address]- 6278 Mar, [facility] [place] [facility] [address] [id number] [place] [address]- 4971 Mar, [facility] [place] [facility] [address] [id number] [place] [address]- 2727 Mar, [facility] [place] [facility] [address] [id number] [place] [address]- 5216 Mar, [facility] [place] [facility] [address] [id number] [place] [address]- 8178 Mar, [facility] [place] [facility] [address] [id number] [place] [address]- 2710 Mar, [facility] [place] [facility] [address] [id number] [place] [address]- 0929 Mar, [facility] [place] [facility] [address] [id number] [place] [address]- 7629 Mar, [facility] [place] [facility] [address] [id number], [place] [address]- 9678 Mar, [facility] [place] [facility] [address] [id number] [place] [address]- 0242 Mar, [facility] [place] [facility] [address] [id number] [place] [address]- 0368 Mar, [facility] [place] [facility] [address] [id number] [place] [address]- 9262 Mar, [facility] [place] [facility] [address] [id number] [place] [address]- 2326 Feb, 2012 [facility] [place] [facility] [address] [id number] [place] [address]- 6296 Feb, [facility] [place] [facility] [address] [id number] [place] [address]- 5861 Feb, [facility] [place] [facility] [address] [id number] [place] [address]- 3207 Feb, [facility] [place] [facility] [address] [id number] [place] [address]- 2656 Feb, [facility] [place] [facility] [address] [id number] [place] [address]- 5503 Feb, [facility] [place] [facility] [address] [id number] [place] 5945 Feb, [facility] [place] [facility] [address] [id number] [place] [address]- 3776 Feb, [facility] [place] [facility] [address] [id number] [place] [address]- 4809 Feb, [facility] [place] [facility] [address] [id number] [place] [address] Feb, [facility] [place] [facility] [address] [id number] [place] [address] Feb, [facility] [place] [facility] [address] [id number] [place] [address] Feb, [facility] [place] [facility] [address] [id number] [place] [address] Feb, [facility] [place] [facility] [address] [id number] [place] [address] Feb, [facility] [place] [facility] [address] [id number] [place] [address] Feb, [facility] [place] [facility] [address] [id number] [place] [address] 05 Feb, 2012 [facility] [place] [facility] [address] [id number] [place] [address] 24 Dec, 2012 [facility] [place] [facility] [address] [id number] [place] [address] 24 Dec, 2012 [facility] [place] [facility] [address] [id number] [place] [address] 48[address] 16 Dec, 2012 [facility] [place] [facility] [address] [id number] [place] [address] 286[address] 16 Dec, 2012 [facility] [place] [facility] [address] [id number] [place] [address] 16 Dec, 2012 [facility] [place] [facility] [address] [id number] [place] [address]677 16 Dec, 2012 [facility] [place] [facility] [address] [id number] [place] [address] 9439 14 Dec, 2012 [facility] [place] [facility] [address] [id number], [place] [address] 14 Dec, 2012 [facility] [place] [facility] [address] [id number][place] [address]29 10 Dec, 2012 [facility] [place] [facility] [address] [id number], [place] [address] 10 Dec, 2012 [facility] [place] [facility] [address] [id number], [place] [address] 10 Dec, 2012 [facility] [place] [facility] [address] [id number][place] [address] 10 Dec, 2012 [facility] [place] [facility] [address] [id number], [place] [address] 279[address] 03 Dec, 2012 [facility] [place] [facility] [address] [id number][place] [address]- [address]84 25 Nov, 2012 [facility] [place] [facility] [address] [id number], [place] [address] 20 Nov, 2012 [facility] [place] [facility] [address] [id number] [place] [address] 18 Nov, 2012 [facility] [address] [id number] [place] [address]25 16 Nov, 2012 [facility] [place] [facility] [address] [id number] [place] [address] 12 Nov, 2012 [facility] [place] [facility] [address] [id number] [place] [address] 7031 11 Nov, 2012 [facility] [place] [facility] [address] [id number] [place] [address] 2544 05 Nov, 2012 [facility] [place] [facility] [address] [id number] [place] [address] 1131 15 Oct, 2012 [facility] [place] [facility] [address] [id number] [place] [address] 70[address] Oct, [facility] [address] [id number] [place] [address]678 24 Sep, 2012 [facility] [address] [id number] [place] [address]71 Sep, [facility] [place] [facility] [address] [id number] [place] [address] 4[address] Sep, [facility] [place] [facility] [address] [id number] [place] [address] 9060 Sep, [facility] [place] [facility] [address] [id number] [place] [address]157 15 Sep, 2012 [facility] [place] [facility] [address] [id number] [place] [address] 3061 Sep, [facility] [place] [facility] [address] [id number] [place] [address] Sep, [facility] [place] [facility] [address] [id number] [place] [address] Aug, [facility] [place] [facility] [address] [id number] [place] [address] Aug, [facility] [place] [facility] [address] [id number] [place] [address] 62[address] 16 Aug, 2012 [facility] [address] [id number] [place] [address] 1269 Aug, [facility] [address] [id number] [place] [address] 8[address] 11 Aug, 2012 [facility] [address] [id number] [place] [address] 9485 Aug, [facility] [address] [id number] [place] [address] 2846 Aug, [facility] [address] [id number] [place] [address] 68[address] Aug, [facility] [address] [id number] [place] [address] July, [facility] [address] [id number] [place] [address] 76[address] July, [facility] [address] [id number] [place] [address] July, [facility] [address] [id number] [place] [id number] July, [facility] [place] [facility] [address] [id number] [place] [address] July, [facility] [address] [id number] [place] [address]076 Jun, [facility] [place] [facility] [address] [id number] [place] [address] May, [facility] [place] [facility] [address] [id number] [place] [address] 7586 14 May, 2012 [facility] [place] [facility] [address] [id number] [place] [address]776 04 May, 2012 [facility] [place] [facility] [address] [id number] [place] [address] Apr, [facility] [address] [id number] [place] [address]26 Apr, [facility] [address] [id number] [place] [address] Apr, [facility] [address] [id number] [place] [address] Mar, [facility] [address] [id number] [place] [address] 1441 Mar, [facility] [address] [id number] [place] [address] 1608 Mar, [facility] [address] [id number] [place] [address]196 Mar, [facility] [address] [id number] [place] [address] 90[address] Mar, [facility] [address] [id number] [place] [address] Mar, [facility] [address] [id number] [place] [address] Mar, [facility] [address] [id number] [place] [address] Feb, [facility] [address] [id number] [place] [address] 31 Feb, 2012 [facility] [address] [id number] [place] [address] 18 Feb, 2012 [facility] [address] [id number] [place] [address] 18 Feb, 2012 [facility] [place] [facility] [address] [id number] [place] [address] 17 Feb, 2012 [facility] [address] [id number] [place] [address] 17 Feb, 2012 [facility] [place] [facility] [address] [id number] [place] [address] Feb, [facility] [place] [facility] [address] [id number] [place] [address] Feb, [facility] [place] [facility] [address] [id number] [place] [address]68 Jan, [facility] [place] [facility] [address] [id number] [place] [address] Jan, [facility] [place] [facility] [address] [id number] [place] [address] Jan, [facility] [place] [facility] [address] [id number] [place] [address] Jan, [facility] [place] [facility] [address] [id number] [place] [address] Jan, [facility] [place] [facility] [address] [id number] [place] [address] Jan, [facility] [place] [facility] [address] [id number] [place] [address]- 8736 Jan, [facility] [place] [facility] [address] [id number] [place] [address]- [address] Jan, [facility] [place] [facility] [address] [id number] [place] [address] Jan, [facility] [place] [facility] [address] [id number] [place] [address] Jan, [facility] [place] [facility] [address] [id number] [place] [address] Jan, [facility] [place] [facility] [address] [id number] [place] [address]- 1410 Jan, [facility] [place] [facility] [address] [id number] [place] [address]- [address] Jan, [facility] [place] [facility] [address] [id number] [place] [address] Jan, [facility] [place] [facility] [address] [id number] [place] [address] Jan, [facility] [place] [facility] [address] [id number] [place] [address]447 Jan, [facility] [place] [facility] [address] [id number] [place] [address] Dec, [facility] [place] [facility] [address] [id number] [place] [address]- [address] Dec, [facility] [place] [facility] [address] [id number] [place] [address] 46[address] Dec, [facility] [place] [facility] [address] [id number] [place] [address] Dec, [facility] [place] [facility] [address] [id number] [place] [address]- 1465 Dec, [facility] [place] [facility] [address] [id number] [place] [address]68 Dec, [facility] [place] [facility] [address] [id number] [place] [address] 29[address] Dec, [facility] [place] [facility] [address] [id number] [place] [address] Dec, [facility] [place] [facility] [address] [id number], [place] [address] Dec, [facility] [place] [facility] [address] [id number], [place] [address] 05 Dec, 2011 [facility] [place] [facility] [address] [id number] [place] [address] 18 Nov, 2011 [facility] [place] [facility] [address] [id number], [place] [address] 13 Nov, 2011 [facility] [place] [facility] [address] [id number] [place] [address] 24 Oct, 2011 [facility] [place] [facility] [address] [id number] [place] [address] Oct, [facility] [place] [facility] [address] [id number] [place] [address]608 Oct, [facility] [place] [facility] [address] [id number] [place] [address]- 1162 Oct, [facility] [place] [facility] [address] [id number] [place] [address]- [address]666 Oct, [facility] [place] [facility] [address] [id number] [place] [address] 3980 Oct, [facility] [place] [facility] [address] [id number] [place] [address] 7810 Oct, [facility] [place] [facility] [address] [id number] [place] [address] Sep, [facility] [place] [facility] [address] [id number] [place] [address]- [address] Aug, [facility] [place] [facility] [address] [id number] [place] [address]- [address]275 Aug, [facility] [place] [facility] [address] [id number] [place] [address]- 6[address] Aug, [facility] [place] [facility] [address] [id number] [place] [address]- 3747 Aug, [facility] [place] [facility] [address] [id number] [place] [address] Aug, [facility] [place] [facility] [address] [id number] [place] [address] 9786 July, [facility] [place] [facility] [address] [id number] [place] [address] 266[address] July, [facility] [place] [facility] [address] [id number] [place] [address] 47[address] July, [facility] [place] [facility] [address] [id number] [place] [address]37 Jun, [facility] [place] [facility] [address] [id number] [place] [address]- 2639 05 Jun, 2011 [facility] [place] [facility] [address] [id number] [place] [address]- 9736 Jun, [facility] [place] [facility] [address] [id number] [place] [address] 3316 Jun, [facility] [place] [facility] [address] [id number] [place] [address]329 30 May, 2011 [facility] [place] [facility] [address] [id number] [place] [address] 406[address] 30 May, 2011 [facility] [place] [facility] [address] [id number] [place] [address] 2717 29 May, 2011 [facility] [place] [facility] [address] [id number] [place] [address]- 9629 May, [facility] [place] [facility] [address] [id number] [place] [address]- 7278 May, [facility] [place] [facility] [address] [id number] [place] [address]- 5[address] May, [facility] [place] [facility] [address] [id number] [place] [address]- 2480 May, [facility] [place] [facility] [address] [id number] [place] [address] 1800 May, [facility] [place] [facility] [address] [id number] [place] [address]- 7212 08 May, 2011 [facility] [place] [facility] [address] [id number] [place] [address]- [address]552 05 May, 2011 [facility] [place] [facility] [address] [id number] [place] [address]- 8763 May, [facility] [place] [facility] [address] [id number] [place] [address]- 3309 May, [facility] [place] [facility] [address] [id number] [place] [address]- 3880 31 Mar, 2011 [facility] [place] [facility] [address] [id number] [place] [address]- 4439 Mar, [facility] [place] [facility] [address] [id number] [place] [address]- 4213 28 Feb, 2011 [facility] [place] [facility] [address] [id number] [place] [address] Feb, [facility] [place] [facility] [address] [id number] [place] [address]- 7914 20 Feb, 2011 [facility] [place] [facility] [address] [id number] [place] [address]- 7579 15 Feb, 2011 [facility] [place] [facility] [address] [id number] [place] [address]- 1988 13 Feb, 2011 [facility] [place] [facility] [address] [id number] [place] [address]- 8986 Feb, [facility] [place] [facility] [address] [id number] [place] [address]- 7225 Feb, [facility] [place] [facility] [address] [id number] [place] [address]- 4428 Jan, [facility] [place] [facility] [address] [id number] [place] [address]- 5077 Jan, [facility] [place] [facility] [address] [id number] [place] [address]- 6202 Jan, [facility] [place] [facility] [address] [id number], [place] [address] 17 Jan, 2011 [facility] [place] [facility] [address] [id number] [place] [address]- 3007 07 Jan, 2011 [facility] [place] [facility] [address] [id number] [place] [address]- 5132 03 Jan, 2011 [facility] [place] [facility] [address] [id number] [place] [address]- 5583 27 Dec, 2010 [facility] [place] [facility] [address] [id number] [place] [address]- 3262 27 Dec, 2010 [facility] [address] [id number] [place] [address]- 9077 Dec, [facility] [address] [id number] [place] [address]- 5506 July, [facility] [address] [id number] [place] [address]- 0246 July, [facility] [address] [id number] [place] [address]- 2544 Feb, [facility] [address] [id number] [place] [address]- 6886 Jan, [facility] [address] [id number] [place] [address]- 1030 Dec, [facility] [address] [id number] [place] [address]- 6772 Dec, [facility] [address] [id number] [place] [address]- 4049 15 Sep, 2009 [facility] [address] [id number] [place] [address]- 0739 Aug, [facility] [address] [id number] [place] [address]- 6407 Jun, [facility] [address] [id number] [place] [address]- 1285 Jun, [facility] [address] [id number] [place] [address]- 5767 Jan, [facility] [place] [facility] [address] [id number] [place] [address]- 8083 Jan, [facility] [place] [facility] [address] [id number] [place] [address]- 0019 Jan, [facility] [address] [id number] [place] [address]- 5609 Jan, [facility] [address] [id number] [address] Dec, [facility] [id number], [place] [address] 75[address] Dec, [facility] [address] [id number], [place] [address] 2546 Dec, [facility] [id number], [place] [address] 2546 Nov, [facility] [id number], [place] [address]32 July, [facility] [id number], [place] [address]- 9546 May, [facility] [id number], [place] [address] 2546 Apr, [facility] [id number], [place] [address]- 36[address] Feb, [facility] [address] [id number], [place] [address] Dec, IMMUNIZATIONS No Known Immunizations SOCIAL HISTORY Never Assessed REASON FOR VISIT Requests return call PLAN OF CARE VITAL SIGNS MEDICATIONS Unknown [...]
--- OUTSIDE RECORDS SUMMARY | 2018-06-14 14:39 | XMS REPORT ---
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 Active 081646953 Problem Hyperlipidemia, unspecified E78.5 Active 38421906 Problem Type 2 diabetes mellitus with complication E11.8 Active 790695770 Problem New daily persistent headache G44.52 Active 182722777 Problem Acute bilateral low back pain with right-sided sciatica M54.41 Active 038001649 Problem Obesity, unspecified 278.00 Active 867421218 Problem Hyperlipidemia 272.4 Active 44875899 Problem Post laminectomy syndrome M96.1 Active 56163317 Problem Eye exam normal Z01.00 Active 407197247 Problem 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 Active 61504095 Problem Non compliance with medical treatment Z91.19 Active 6596673 Problem Bipolar disorder, in partial remission, most recent episode manic F31.73 Active 90079015 Problem Diabetes E11.9 Active 559140210 Problem Extreme poverty Z59.5 Active 95319691 Problem Irritable bowel syndrome with diarrhea K58.0 Active 698362156 ALLERGIES No Information ENCOUNTERS Encounter Location Date Diagnosis [facility] [address] [address] Nov, [facility] [address] [address] Nov, [facility] [id number] [place] [address] 49320- 7837 Nov, [place] [id number] [place] [address] 77275- 0336 Nov, [place] [id number] [place] [address] 02933- 6756 Oct, Bipolar 1 disorder F31.9 ; 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 and Extreme poverty Z59.5 [place] [address] 28736- 9089 Oct, Type 2 diabetes mellitus with hyperglycemia E11.65 ; halfway current use of insulin Z79.4 and Other acute gastritis without hemorrhage K29.00 [place] [id number] [place] [address] 49781- 0721 Oct, Bipolar 1 disorder F31.9 ; 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 and Extreme poverty Z59.5 [place] [id number] [place] [address] 19922- 6343 Sep, Diarrhea, unspecified R19.7 and Vomiting, unspecified R11.10 [place] [id number] [place] [address] 55215- 2038 Aug, Type 2 diabetes mellitus with complication E11.8 [facility] [id number] [place] [address] 63317- 3507 Aug, [place] [id number] [place] [address] 68528- 8641 Aug, Bipolar 1 disorder F31.9 ; 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 and Extreme poverty Z59.5 [place] [id number] [place] [address] 11388- 9322 Aug, 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 and Bipolar disorder, in partial remission, most recent episode manic F31.73 [place] [id number] [place] [address] 62787- 6885 Aug, Bipolar 1 disorder F31.9 [place] [address] [address] Aug, [facility] [id number] [place] [address] 44074- 3862 Aug, [facility] [id number] [place] [address] 88874- 7126 Aug, Bipolar 1 disorder F31.9 ; 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 and Extreme poverty Z59.5 [place] [id number] [place] [address] 92653- 4302 July, Type 2 diabetes mellitus with complication E11.8 [place] [id number] [place] [address] 51747- 1384 July, Bipolar 1 disorder F31.9 ; 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 and Extreme poverty Z59.5 [place] [id number] [place] [address] 85493- 8839 Jun, Bipolar 1 disorder F31.9 ; 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 and Extreme poverty Z59.5 [place] [address] [place] [address] 67586- 1626 Jun, Bipolar 1 disorder F31.9 ; 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 and Extreme poverty Z59.5 [place] [address] [place] [address] 15461- 6362 Jun, Bipolar 1 disorder F31.9 ; 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 and Extreme poverty Z59.5 [place] [address] [place] [address] 37708- 1880 May, Urinary tract infection without hematuria, site unspecified N39.0 [place] [id number] [place] [address] 63467- 7615 May, Bipolar 1 disorder F31.9 ; 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 and Extreme poverty Z59.5 [place] [address] [place] [address] 12668- 2377 Apr, Diabetes E11.9 and Breast cancer screening Z12.31 [place] [id number] [place] [address] 74446- 4486 Apr, Bipolar 1 disorder F31.9 and 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 [place] [id number] [place] [address] 36923- 2806 Mar, Bipolar 1 disorder F31.9 ; 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 and Extreme poverty Z59.5 [place] [address] 63772- 9197 Mar, New daily persistent headache G44.52 ; Leg pain 729.5 and History of carpal tunnel release Z98.890 [place] [id number] [place] [address] 57654- 5034 Mar, Hyperlipidemia, unspecified E78.5 [place] [address] 76855- 6503 Mar, Bipolar 1 disorder F31.9 ; 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 and Extreme poverty Z59.5 [place] [address] 19344- 1165 Feb, Bipolar 1 disorder F31.9 ; 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 and Extreme poverty Z59.5 [place] [id number] [place] [address] 66176- 2865 Feb, Diabetes E11.9 [place] [address] 31090- 1177 Feb, Viral syndrome B34.[address] 54021- 2179 Jan, Other viral agents as the cause of diseases classified elsewhere B97.89 and Acute upper respiratory infection, unspecified J06.9 [place] [id number] [place] [address] 80817- 9714 Jan, Bipolar 1 disorder F31.9 and 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 [facility] [id number] [place] [address] 49559- 0275 Jan, Bipolar 1 disorder F31.9 ; 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 and Extreme poverty Z59.5 [place] [id number] [place] [address] 47213- 1722 Dec, Diabetes E11.9 [place] [address] 655576- 1223 Dec, Diabetes E11.9 and Encounter for immunization Z23 [place] [id number] [place] [address] 96556- 4533 Dec, Bipolar 1 disorder F31.9 ; 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 and Extreme poverty Z59.5 [place] [id number] [place] [address] 96986- 1292 Dec, Back pain M54.9 [place] [id number] [place] [address] 72650- 1211 07 Nov, 2016 [place] [id number] [place] [address] 12029- 2297 Nov, Bipolar 1 disorder F31.9 ; 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 and Extreme poverty Z59.5 [place] [id number] [place] [address] 18006- 5833 Nov, Bipolar 1 disorder F31.9 ; 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 and Extreme poverty Z59.5 [place] [address] [place] [address] 53357- 8596 Oct, 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 and Bipolar 1 disorder F31.9 [place] [id number] [place] [address] 12767- 1287 Oct, Bipolar 1 disorder F31.9 ; 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 and Extreme poverty Z59.5 [place] [id number] [place] [address] 61288- 7346 Oct, Back pain M54.9 [facility] [address] [place] [address] 96430- 1911 Oct, 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 and Extreme poverty Z59.5 [place] [id number] [place] [address] 89320- 4243 Aug, Diabetes E11.9 ; Hyperlipidemia, unspecified E78.5 and Lumbar radiculopathy M54.16 [place] [id number] [place] [address] 93921- 7075 Aug, Bipolar 1 disorder F31.9 ; 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 and Extreme poverty Z59.5 [place] [id number] [place] [address] 95814- 9279 Aug, [place] [id number] [place] [address] 85135- 1287 Aug, [facility] [id number] [place] [address] 78568- 1619 Aug, [place] [id number] [place] [address] 58962- 4025 July, [place] [id number] [place] [address] 60159- 7505 July, Acute bilateral low back pain with right-sided sciatica M54.41 [place] [address] [address]- 5116 July, Bipolar 1 disorder F31.9 ; 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 and Extreme poverty Z59.5 [place] [id number] [place] [address] 90154- 7864 July, Back pain M54.9 and Diabetes E11.9 [place] [id number] [place] [address] 88828- 6669 Jun, Bipolar 1 disorder F31.9 ; 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 and Extreme poverty Z59.5 [place] [id number] [place] [address] 48091- 7300 Jun, Bipolar 1 disorder F31.9 ; 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 and Extreme poverty Z59.5 [place] [id number] [place] [address] 00963- 4954 May, Visit for pelvic exam Z01.419 ; Acute vaginitis N76.0 and Diabetes E11.9 [place] [id number] [place] [address] 94057- 5412 May, Bipolar 1 disorder F31.9 ; 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 and Extreme poverty Z59.5 [place] [address] [place] [address] 46730- 6749 May, [place] [id number] [place] [address] 05912- 1038 May, [place] [id number] [place] [address] 30458- 8179 May, Bipolar 1 disorder F31.9 ; 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 and Extreme poverty Z59.5 [place] [address] [place] [address] 15232- 1795 May, Hyperlipidemia, unspecified E78.5 [place] [address] [place] [address] 95571- 9215 Apr, Breast cancer screening Z12.39 [place] [id number] [place] [address] 71161- 7882 Mar, [place] [id number] [place] [address] 27754- 7418 Mar, Bipolar disorder, current episode mixed, unspecified F31.60 [place] [id number] [place] [address] 93036- 5754 Mar, Bipolar 1 disorder F31.9 ; 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 and Extreme poverty Z59.5 [place] [id number] [place] [address] 12631- 3989 Feb, Acute nasopharyngitis J00 [place] [address] 94162- 7623 27 Feb, 2016 Dental examination Z01.20 [place] [address] 87197- 8503 21 Feb, 2016 Dental cavities K02.9 and Chronic periodontitis, unspecified K05.30 [place] [id number] [place] [address] 02554- 8177 13 Feb, 2016 Low back pain M54.5 and Extreme poverty Z59.5 [place] [id number] [place] [address] 21761- 9228 Feb, [place] [id number] [place] [address] 69046- 6070 05 Feb, 2016 Routine gynecological examination V72.31 ; Breast cancer screening Z12.39 and Herpes simplex type 1 infection B00.9 [place] [id number] [place] [address] 24899- 6577 Feb, Diabetes E11.9 [place] [id number] [place] [address] 96623- 0008 Feb, Encounter for dental examination and cleaning without abnormal findings Z01.20 [place] [address] 88406- 6924 Jan, Hyperlipidemia, unspecified E78.5 [place] [id number] [place] [address] 50503- 5930 Jan, Bipolar 1 disorder F31.9 ; 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 and Extreme poverty Z59.5 [place] [id number] [place] [address] 24117- 3251 Jan, Diabetes E11.9 [place] [address] 626589- 2179 17 Jan, 2016 Diabetes E11.9 [place] [id number] [place] [address] 82989- 2703 14 Dec, 2015 Bipolar 1 disorder F31.9 ; 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 and Extreme poverty Z59.5 [place] [id number] [place] [address] 98653- 8089 13 Dec, 2015 Bipolar disorder, current episode mixed, unspecified F31.60 and 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 [place] [id number] [place] [address] 84555- 8707 16 Nov, 2015 Bipolar 1 disorder F31.9 ; 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 ; Extreme poverty Z59.5 and Non compliance with medical treatment Z91.19 [place] [id number] [place] [address] 43901- 4834 Oct, [place] [id number] [place] [address] 52231- 1793 Oct, Dental caries K02.9 [place] [id number] [place] [address] 22875- 2056 Oct, Low back pain M54.5 and Other chronic pain G89.29 [place] [id number] [place] [address] 24557- 0259 Oct, Bipolar 1 disorder F31.9 ; 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 ; Extreme poverty Z59.5 and Non compliance with medical treatment Z91.19 [place] [address] [address]- 7270 Oct, [place] [id number] [place] [address] 34163- 3885 Oct, [place] [id number] [place] [address] 95943- 0725 Oct, Dental examination Z01.20 [place] [id number] [place] [address] 44587- 4404 Oct, Bipolar 1 disorder F31.9 ; 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 ; Extreme poverty Z59.5 and Non compliance with medical treatment Z91.19 [place] [id number] [place] [address] 34408- 0270 Oct, [place] [id number] [place] [address] 17982- 7912 Sep, Type 2 diabetes mellitus with complication E11.8 [place] [id number] [place] [address] 21660- 1069 Sep, Bipolar disorder, current episode mixed, unspecified F31.60 [facility] [id number] [place] [address] 37567- 2603 Sep, Bipolar disorder, current episode mixed, unspecified F31.60 [place] [address] [place] [address] 62710- 2105 Sep, Bipolar disorder, in partial remission, most recent episode manic F31.73 ; 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 ; Extreme poverty Z59.5 and Non compliance with medical treatment Z91.19 [place] [address] [place] [address] 97648- 3596 Aug, Bipolar disorder, in partial remission, most recent episode manic F31.73 ; 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 ; Extreme poverty Z59.5 and Non compliance with medical treatment Z91.19 [place] [address] [place] [address] 24858- 0196 Aug, Bipolar disorder, in partial remission, most recent episode manic F31.73 ; 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 ; Extreme poverty Z59.5 and Non compliance with medical treatment Z91.19 [place] [address] [place] [address] 03025- 5928 Aug, [place] [id number] [place] [address] 22082- 0520 July, Bipolar disorder, in partial remission, most recent episode manic F31.73 ; 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 ; Extreme poverty Z59.5 and Non compliance with medical treatment Z91.19 [place] [id number] [place] [address] 29722- 8921 July, Bipolar disorder, current episode mixed, unspecified F31.60 [place] [id number] [place] [address] 58936- 3482 July, Bipolar disorder, in partial remission, most recent episode manic F31.73 ; 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 ; Extreme poverty Z59.5 and Non compliance with medical treatment Z91.19 [place] [id number] [place] [address] 86246- 4122 July, 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 and Chronic pain G89.29 [place] [address] [place] [address] 01096- 7016 Jun, halfway current 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 Z79.891 and Bipolar 1 disorder F31.9 [place] [address] [place] [address] 00734- 7962 Jun, [place] [id number] [place] [address] 98619- 5710 Jun, [place] [id number] [place] [address] 78307- 1418 Jun, [place] [id number] [place] [address] 68849- 2779 Jun, Bipolar disorder, in partial remission, most recent episode manic F31.73 ; 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 and Non compliance with medical treatment Z91.19 [place] [address] [place] [address] 07619- 9840 May, Bipolar disorder, in partial remission, most recent episode manic F31.73 ; 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 and Non compliance with medical treatment Z91.19 [place] [id number] [place] [address] 10172- 3247 May, Bipolar disorder, in partial remission, most recent episode manic F31.73 [place] [id number] [place] [address] 71835- 9174 May, Diabetes E11.9 and Chronic pain G89.29 [place] [id number] [place] [address] 34977- 3371 May, [place] [id number] [place] [address] 32605- 2818 May, Bipolar disorder, in partial remission, most recent episode manic F31.73 ; Non compliance with medical treatment Z91.19 and 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 [place] [address] [place] [address] 69745- 8004 May, Type 2 diabetes mellitus with complication E11.8 and Back pain M54.9 [place] [address] [place] [address] 19023- 3527 May, Bipolar disorder, in partial remission, most recent episode manic F31.73 and 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 [place] [address] [place] [address] 98324- 6273 Apr, [place] [id number] [place] [address] 10942- 5810 Apr, [place] [address] [place] [address] 92854- 5759 Apr, [place] [id number] [place] [address] 20903- 3057 09 Apr, 2015 Diabetes E11.9 ; Irritable bowel syndrome with diarrhea K58.0 and Lumbar radiculopathy M54.16 [place] [id number] [place] [address] 49995- 4164 02 Apr, 2015 Breast screening Z12.[address] 57945- 0617 02 Apr, 2015 Bipolar disorder, in partial remission, most recent episode manic F31.73 ; Non compliance with medical treatment Z91.19 and 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 [place] [address]- 3606 Mar, Edema, unspecified type R60.9 and Type 2 diabetes mellitus with complication E11.[address] 69957- 4724 Mar, Bipolar disorder, in partial remission, most recent episode manic F31.73 ; Non compliance with medical treatment Z91.19 ; 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 and Extreme poverty Z59.5 [place] [id number] [place] [address] 36786- 9720 Mar, Bipolar disorder, current episode mixed, unspecified F31.60 ; 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 ; Extreme poverty Z59.5 and Generalized anxiety disorder F41.1 [place] [id number] [place] [address] 07015- 8693 Mar, Bipolar disorder, in partial remission, most recent episode manic F31.73 ; 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 and Extreme poverty Z59.5 [place] [id number] [place] [address] 79370- 5634 Feb, Bipolar disorder, in partial remission, most recent episode manic F31.73 ; 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 and Extreme poverty Z59.[address] 31447- 4129 Feb, Bipolar disorder, in partial remission, most recent episode manic F31.73 ; 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 and Extreme poverty Z59.5 [place] [id number] [place] [address] 50579- 8271 Feb, [place] [id number] [place] [address] 21288- 4667 Jan, Type 2 diabetes mellitus with complication E11.8 and Petechiae R23.3 [place] [address] 57665- 7573 Jan, Type 2 diabetes mellitus with complication E11.8 ; Edema, unspecified R60.9 ; Petechiae R23.3 and Diabetes E11.9 [place] [id number] [place] [address] 18118- 1299 Jan, Bipolar disorder, in partial remission, most recent episode manic F31.73 ; 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 and Extreme poverty Z59.5 [place] [id number] [place] [address] 71954- 7968 Jan, Bipolar disorder, in partial remission, most recent episode manic F31.73 ; 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 and Extreme poverty Z59.5 [place] [id number] [place] [address] 97952- 1358 Dec, Bipolar disorder, in partial remission, most recent episode manic F31.73 [place] [id number] [place] [address] 34450- 7784 Dec, Edema, due to unspecified malnutrition type, unspecified edema R60.9 and Essential hypertension I10 [place] [address] [place] [id number] Dec, Bipolar disorder, in partial remission, most recent episode manic F31.73 [place] [address] [place] [id number] [place] [address] [phone] Nov, Bipolar I disorder, most recent episode (or current) mixed, unspecified 296.60 [facility] [address] [id number] [address] Nov, Stress incontinence, female 625.6 ; Back pain 724.5 and Leg pain 729.5 [facility] [address] [address] 8[address] Nov, Generalized anxiety disorder 300.02 and Bipolar II disorder 296.89 [facility] [id number] [place] [address] 79538- 7020 Nov, Bipolar I disorder, most recent episode (or current) mixed, unspecified 296.60 [facility] [id number] [place] [address] 24158- 3171 Oct, [facility] [id number] [place] [address] 08135- 0801 Oct, [facility] [id number] [place] [address] 70810- 2284 Oct, [facility] [id number] [place] [address] 59074- 0345 Oct, Bipolar I disorder, most recent episode (or current) mixed, unspecified 296.60 [facility] [address] [address] 9886 Sep, Diabetes 250.00 [facility] [id number] [place] [address] 00869- 5662 Sep, Bipolar I disorder, most recent episode (or current) mixed, unspecified 296.60 [facility] [address] [address] 8165 Sep, [facility] [id number] [address] 6748 Sep, [facility] [address] [address]- 5586 Sep, Bipolar I disorder, most recent episode (or current) mixed, unspecified 296.60 [facility] [address] [address]- 2419 Sep, Bipolar I disorder, most recent episode (or current) mixed, unspecified 296.60 [facility] [address] [address] Sep, [facility] [id number] [place] [address] 638164- 6758 Sep, Anxiety 300.00 ; Diabetes 250.00 and Hyperlipidemia 272.4 [facility] [id number] [place] [address] 55044- 2052 Aug, [facility] [id number] [place] [address] 79622- 3535 Aug, [facility] [id number] [place] [address] 06729- 0619 Aug, [facility] [id number] [place] [address] 84315- 0766 Aug, Bipolar I disorder, most recent episode (or current) mixed, unspecified 296.60 [facility] [id number] [place] [address] 63812- 9122 Aug, Generalized anxiety disorder 300.02 and Bipolar II disorder 296.89 [facility] [address] [address]- 1030 July, Bipolar I disorder, most recent episode (or current) mixed, unspecified 296.60 [facility] [address] [address]- 2831 July, Cough 786.2 [facility] [id number] [place] [address] 82744- 6268 July, Bipolar I disorder, most recent episode (or current) mixed, unspecified 296.60 [facility] [address] [address]- 1652 Jun, Diabetes 250.00 [facility] [id number] [place] [address]- 5485 14 Jun, 2014 [facility] [place] [facility] [address] [id number] [place] [address]- 9277 13 Jun, 2014 [facility] [place] [facility] [address] [id number] [place] [address]- 0223 24 May, 2014 [facility] [place] [facility] [address] [id number] [place] [address]- 0836 24 May, 2014 [facility] [place] [facility] [address] [id number] [place] [address]- 4488 10 May, 2014 [facility] [place] [facility] [address] [id number] [place] [address]- 3828 10 May, 2014 [facility] [place] [facility] [address] [facility] [id number] [place] [address]- 7361 10 May, 2014 [facility] [place] [facility] [address] [facility] [id number] [place] [address]- 7035 10 May, 2014 [facility] [place] [facility] [address] [facility] [id number] [place] [address]- 9418 20 Apr, 2014 [facility] [place] [facility] [address] [facility] [id number] [place] [address]- 6076 20 Apr, 2014 [facility] [place] [facility] [address] [facility] [id number] [place] [address]- 5741 11 Apr, 2014 [facility] [place] [facility] [address] [facility] [id number] [place] [address]- 3479 11 Apr, 2014 [facility] [place] [facility] [address] [facility] [id number] [place] [address]- 2547 10 Apr, 2014 [facility] [place] [facility] [address] [id number] [place] [address]- 8795 10 Apr, 2014 [facility] [place] [facility] [address] [facility] [id number] [place] 0772 05 Apr, 2014 [facility] [place] [facility] [address] [facility] [id number] [place] [address]- 9693 Apr, [facility] [place] [facility] [address] [id number] [place] [address]- 2044 Mar, [facility] [place] [facility] [address] [id number] [place] [address]- 2389 Mar, [facility] [place] [facility] [address] [id number] [place] [address]- 0881 Mar, [facility] [place] [facility] [address] [id number] [place] [address]- 8425 Mar, [facility] [place] [facility] [address] [id number] [place] [address]- 1596 Mar, [facility] [place] [facility] [address] [id number] [place] [address]- 2183 Mar, [facility] [place] [facility] [address] [id number] [place] [address]- 8985 Mar, [facility] [place] [facility] [address] [id number] [place] [address]- 4367 Mar, [facility] [place] [facility] [address] [id number] [place] [address]- 3391 Feb, [facility] [place] [facility] [address] [id number] [place] [address]- 7560 Feb, [facility] [place] [facility] [address] [id number] [place] [address]- 5747 Feb, [facility] [place] [facility] [address] [id number] [place] [address]- 6488 Feb, [facility] [place] [facility] [address] [id number] [place] [address]- 5324 Feb, [facility] [place] [facility] [address] [id number] [place] [address]- 3958 Feb, [facility] [place] [facility] [address] [id number] [place] [address]- 3481 Feb, [facility] [place] [facility] [address] [id number] [place] [address]- 5634 Feb, [facility] [place] [facility] [address] [id number] [place] [address]- 2070 Feb, [facility] [place] [facility] [address] [id number] [place] [address]- 5415 Feb, [facility] [place] [facility] [address] [id number] [place] [address]- 7589 Jan, [facility] [place] [facility] [address] [id number] [place] [address]- 7220 Jan, [facility] [place] [facility] [address] [id number] [place] [address]- 8514 Jan, [facility] [place] [facility] [address] [id number] [place] [address]- 7931 Jan, [facility] [place] [facility] [address] [id number] [place] [address]- 7431 Jan, [facility] [place] [facility] [address] [id number] [place] [address]- 2961 Jan, [facility] [place] [facility] [address] [id number] [place] [address]- 2109 Jan, [facility] [place] [facility] [address] [id number] [place] [address]- 1611 Jan, [facility] [place] [facility] [address] [id number] [place] [address]- 6274 Jan, [facility] [place] [facility] [address] [id number] [place] [address]- 4650 Jan, [facility] [place] [facility] [address] [id number] [place] [address]- 7561 Jan, [facility] [place] [facility] [address] [id number] [place] [address]- 4990 Jan, [facility] [place] [facility] [address] [id number] [place] [address]- 5809 Jan, [facility] [place] [facility] [address] [id number] [place] [address]- 4509 Jan, [facility] [place] [facility] [address] [id number] [place] [address]- 3945 Jan, [facility] [place] [facility] [address] [id number] [place] [address]- 0847 Dec, [facility] [place] [facility] [address] [id number] [place] [address]- 1197 Dec, [facility] [place] [facility] [address] [id number] [place] 2154 Dec, [facility] [place] [facility] [address] [id number] [place] [address]- 8181 Dec, [facility] [place] [facility] [address] [id number] [place] [address]- 9078 Dec, [facility] [place] [facility] [address] [id number] [place] [address]- 3484 Dec, [facility] [place] [facility] [address] [id number] [place] [address]- 9983 Dec, [facility] [place] [facility] [address] [id number] [place] [address]- 0317 Dec, [facility] [place] [facility] [address] [id number] [place] [address]- 0072 Nov, [facility] [place] [facility] [address] [id number] [place] [address]- 7902 25 Nov, 2013 [facility] [place] [facility] [address] [id number] [place] [address]- 8330 10 Nov, 2013 [facility] [place] [facility] [address] [id number] [place] [address]- 6866 10 Nov, 2013 [facility] [place] [facility] [address] [id number] [place] [address]- 1778 08 Nov, 2013 [facility] [place] [facility] [address] [id number] [place] [address]- 4262 08 Nov, 2013 [facility] [place] [facility] [address] [id number] [place] [address]- 4839 08 Nov, 2013 [facility] [place] [facility] [address] [id number] [place] [address]- 2129 08 Nov, 2013 [facility] [place] [facility] [address] [id number] [place] [address]- 4457 08 Nov, 2013 [facility] [place] [facility] [address] [id number] [place] [address]- 0368 08 Nov, 2013 [facility] [place] [facility] [address] [id number] [place] [address]- 5573 Nov, 2013 [facility] [place] [facility] [address] [id number] [place] [address]- 7087 Nov, 2013 [facility] [place] [facility] [address] [id number] [place] [address]- 9353 Nov, 2013 [facility] [place] [facility] [address] [id number] [place] [address]- 2560 Nov, 2013 [facility] [place] [facility] [address] [id number] [place] [address]- 3816 Nov, 2013 [facility] [place] [facility] [address] [id number] [place] [address]- 9621 Oct, [facility] [place] [facility] [address] [id number] [place] [address]- 5270 Oct, [facility] [place] [facility] [address] [id number] [place] [address]- 2479 Oct, [facility] [place] [facility] [address] [id number] [place] [address]- 9616 Oct, [facility] [place] [facility] [address] [id number] [place] [address]- 9154 Oct, [facility] [place] [facility] [address] [id number] [place] [address]- 8888 Oct, [facility] [place] [facility] [address] [id number] [place] [address]- 5587 Oct, [facility] [place] [facility] [address] [id number] [place] [address]- 8162 Oct, [facility] [place] [facility] [address] [id number] [place] [address]- 0381 Oct, [facility] [place] [facility] [address] [id number] [place] [address]- 8681 Oct, [facility] [place] [facility] [address] [id number] [place] [address]- 3362 Oct, [facility] [place] [facility] [address] [id number] [place] [address]- 1000 Oct, [facility] [place] [facility] [address] [id number] [place] [address]- 7269 Oct, [facility] [place] [facility] [address] [id number] [place] [address]- 0228 Oct, [facility] [place] [facility] [address] [id number] [place] [address]- 8789 Sep, [facility] [place] [facility] [address] [id number] [place] [address]- 2326 Sep, [facility] [place] [facility] [address] [id number] [place] [address]- 8210 Sep, [facility] [place] [facility] [address] [id number] [place] [address]- 9135 Sep, [facility] [place] [facility] [address] [id number] [place] [address]- 4611 Sep, [facility] [place] [facility] [address] [id number] [place] [address]- 8305 Sep, [facility] [place] [facility] [address] [id number] [place] [address]- 2156 Sep, [facility] [place] [facility] [address] [id number] [place] [address]- 3109 Sep, [facility] [place] [facility] [address] [id number] [place] [address]- 0412 Aug, [facility] [place] [facility] [address] [id number] [place] [address]- 2964 Aug, [facility] [place] [facility] [address] [id number] [place] [address]- 3335 Aug, [facility] [place] [facility] [address] [id number] [place] [address]- 6916 Aug, [facility] [place] [facility] [address] [id number] [place] [address]- 9308 Aug, [facility] [place] [facility] [address] [id number] [place] [address]- 0694 Aug, [facility] [place] [facility] [address] [id number] [place] [address]- 5497 Aug, [facility] [place] [facility] [address] [id number] [place] [address]- 0270 Aug, [facility] [place] [facility] [address] [id number] [place] [address]- 2896 July, [facility] [place] [facility] [address] [id number] [place] [address]- 7514 July, [facility] [place] [facility] [address] [id number] [place] [address]- 5701 July, [facility] [place] [facility] [address] [id number] [place] [address]- 8857 July, [facility] [place] [facility] [address] [id number] [place] [address]- 8862 July, [facility] [place] [facility] [address] [id number] [place] [address]- 8479 July, [facility] [place] [facility] [address] [id number] [place] [address]- 6961 July, [facility] [place] [facility] [address] [id number] [place] [address]- 9285 July, [facility] [place] [facility] [address] [id number] [place] [address]- 4727 Jun, [facility] [place] [facility] [address] [id number] [place] [address]- 8381 Jun, [facility] [place] [facility] [address] [id number] [place] [address]- 5704 Jun, [facility] [place] [facility] [address] [id number] [place] [address]- 2759 Jun, [facility] [place] [facility] [address] [id number] [place] [address]- 3038 Jun, [facility] [place] [facility] [address] [id number] [place] [address]- 4360 Jun, [facility] [place] [facility] [address] [id number] [place] [address]- 9855 Jun, [facility] [place] [facility] [address] [id number] [place] [address]- 1915 Jun, [facility] [place] [facility] [address] [id number] [place] [address]- 1422 Jun, [facility] [place] [facility] [address] [id number] [place] [address]- 2370 Jun, [facility] [place] [facility] [address] [id number] [place] [address]- 0544 Jun, [facility] [place] [facility] [address] [id number] [place] [address]- 0890 Jun, [facility] [place] [facility] [address] [id number] [place] [address]- 7259 May, [facility] [place] [facility] [address] [id number] [place] [address]- 6174 May, [facility] [place] [facility] [address] [id number] [place] [address]- 0454 May, [facility] [place] [facility] [address] [id number] [place] [address]- 9362 26 May, 2013 [facility] [place] [facility] [address] [id number] [place] [address]- 3423 13 May, 2013 [facility] [place] [facility] [address] [id number] [place] [address]- 0633 13 May, 2013 [facility] [place] [facility] [address] [id number] [place] [address]- 2790 12 May, 2013 [facility] [place] [facility] [address] [id number] [place] [address]- 2696 12 May, 2013 [facility] [place] [facility] [address] [id number] [place] [address]- 2579 11 May, 2013 [facility] [place] [facility] [address] [id number] [place] [address]- 1038 11 May, 2013 [facility] [place] [facility] [address] [id number] [place] [address]- 4371 11 May, 2013 [facility] [place] [facility] [address] [id number] [place] [address]- 7697 11 May, 2013 [facility] [place] [facility] [address] [id number] [place] [address]- 2982 10 May, 2013 [facility] [place] [facility] [address] [id number] [place] [address]- 9847 May, [facility] [place] [facility] [address] [id number] [place] [address]- 5912 Apr, [facility] [place] [facility] [address] [id number] [place] [address]- 2122 Apr, [facility] [place] [facility] [address] [id number] [place] [address]- 7501 Apr, [facility] [place] [facility] [address] [id number] [place] [address]- 7240 Apr, [facility] [place] [facility] [address] [id number] [place] [address]- 9166 Apr, [facility] [place] [facility] [address] [id number] [place] [address]- 3728 Apr, [facility] [place] [facility] [address] [id number] [place] [address]- 4706 Mar, [facility] [place] [facility] [address] [id number] [place] [address]- 1209 Mar, [facility] [place] [facility] [address] [id number] [place] [address]- 9465 Mar, [facility] [place] [facility] [address] [id number] [place] [address]- 6868 Mar, [facility] [place] [facility] [address] [id number] [place] [address]- 8744 Mar, [facility] [place] [facility] [address] [id number] [place] [address]- 1182 Mar, [facility] [place] [facility] [address] [id number] [place] [address]- 0119 Mar, [facility] [place] [facility] [address] [id number] [place] [address]- 4257 Mar, [facility] [place] [facility] [address] [id number] [place] [address]- 8240 Mar, [facility] [place] [facility] [address] [id number] [place] [address] Mar, [facility] [place] [facility] [address] [id number] [place] [address] Mar, [facility] [place] [facility] [address] [id number] [place] [address] Mar, [facility] [place] [facility] [address] [id number] [place] [address] Mar, [facility] [place] [facility] [address] [id number] [place] [address] Mar, [facility] [place] [facility] [address] [id number] [place] [address] Feb, 2012 [facility] [place] [facility] [address] [id number] [place] [address] Feb, [facility] [place] [facility] [address] [id number] [place] [address] Feb, [facility] [place] [facility] [address] [id number] [place] [address] Feb, [facility] [place] [facility] [address] [id number] [place] [address] Feb, [facility] [place] [facility] [address] [id number] [place] [address] Feb, [facility] [place] [facility] [address] [id number] [place] [address] Feb, [facility] [place] [facility] [address] [id number] [place] [address] Feb, [facility] [place] [facility] [address] [id number] [place] [address] Feb, [facility] [place] [facility] [address] [id number] [place] [address] Feb, [facility] [place] [facility] [address] [id number] [place] [address] Feb, [facility] [place] [facility] [address] [id number] [place] [address]- [address] Feb, [facility] [place] [facility] [address] [id number] [place] [address] Feb, [facility] [place] [facility] [address] [id number] [place] [address] 7536 Feb, [facility] [place] [facility] [address] [id number] [place] [address] Feb, [facility] [place] [facility] [address] [id number] [place] [address]- [address] 05 Feb, 2012 [facility] [place] [facility] [address] [id number] [place] [address] 24 Dec, 2012 [facility] [place] [facility] [address] [id number] [place] [address] 5827 24 Dec, 2012 [facility] [place] [facility] [address] [id number] [place] [address]- 1503 16 Dec, 2012 [facility] [place] [facility] [address] [id number] [place] [address] 16 Dec, 2012 [facility] [place] [facility] [address] [id number] [place] [address] 9161 16 Dec, 2012 [facility] [place] [facility] [address] [id number] [place] [address]- 4027 16 Dec, 2012 [facility] [place] [facility] [address] [id number] [place] [address] 9580 14 Dec, 2012 [facility] [place] [facility] [address] [id number] [place] [address] 14 Dec, 2012 [facility] [place] [facility] [address] [id number] [place] [address] 10 Dec, 2012 [facility] [place] [facility] [address] [id number] [place] [address] 10 Dec, 2012 [facility] [place] [facility] [address] [id number] [place] [address] 10 Dec, 2012 [facility] [place] [facility] [address] [id number] [place] [address]99 10 Dec, 2012 [facility] [place] [facility] [address] [id number] [place] [address] 03 Dec, 2012 [facility] [place] [facility] [address] [id number] [place] [address] 25 Nov, 2012 [facility] [place] [facility] [address] [id number] [place] [address] 6066 20 Nov, 2012 [facility] [place] [facility] [address] [id number] [place] [address]105 18 Nov, 2012 [facility] [address] [id number] [place] [address]- [address] 16 Nov, 2012 [facility] [place] [facility] [address] [id number] [place] [address]- 3696 12 Nov, 2012 [facility] [place] [facility] [address] [id number] [place] [address]- [address]238 11 Nov, 2012 [facility] [place] [facility] [address] [id number] [place] [address] 2548 05 Nov, 2012 [facility] [place] [facility] [address] [id number] [place] [address]- 9896 15 Oct, 2012 [facility] [place] [facility] [address] [id number] [place] [address]- 1728 Oct, [facility] [address] [id number] [place] [address]- 6462 24 Sep, 2012 [facility] [address] [id number] [place] [address]- 9430 Sep, [facility] [place] [facility] [address] [id number] [place] [address] 4[address] Sep, [facility] [place] [facility] [address] [id number] [place] [address]- 7965 Sep, [facility] [place] [facility] [address] [id number] [place] [address]- 4196 15 Sep, 2012 [facility] [place] [facility] [address] [id number] [place] [address]- [address] Sep, [facility] [place] [facility] [address] [id number] [place] [address]- 67[address] Sep, [facility] [place] [facility] [address] [id number] [place] [address] 1647 Aug, [facility] [place] [facility] [address] [id number] [place] [address]- [address]455 Aug, [facility] [place] [facility] [address] [id number] [place] [address]- 1583 16 Aug, 2012 [facility] [address] [id number] [place] [address]- [address]137 Aug, [facility] [address] [id number] [place] [address]- 3706 11 Aug, 2012 [facility] [address] [id number] [place] [address]- 74[address] Aug, [facility] [address] [id number] [place] [address]- [address]357 Aug, [facility] [address] [id number] [place] [address]- 9837 Aug, [facility] [address] [id number] [place] [address]- [address]288 July, [facility] [address] [id number] [place] [address] July, [facility] [address] [id number] [place] [address] July, [facility] [address] [id number] [place] [id number] July, [facility] [place] [facility] [address] [id number] [place] [address] July, [facility] [address] [id number] [place] [address] Jun, [facility] [place] [facility] [address] [id number] [place] [address] May, [facility] [place] [facility] [address] [id number] [place] [address] 14 May, 2012 [facility] [place] [facility] [address] [id number] [place] [address] 04 May, 2012 [facility] [place] [facility] [address] [id number] [place] [address] Apr, [facility] [address] [id number] [place] [address] Apr, [facility] [address] [id number] [place] [address] Apr, [facility] [address] [id number] [place] [address] Mar, [facility] [address] [id number] [place] [address] Mar, [facility] [address] [id number] [place] [address] Mar, [facility] [address] [id number] [place] [address] Mar, [facility] [address] [id number] [place] [address] Mar, [facility] [address] [id number] [place] [address] 7867 Mar, [facility] [address] [id number] [place] [address] Mar, [facility] [address] [id number] [place] [address] Feb, [facility] [address] [id number] [place] [address] 31 Feb, 2012 [facility] [address] [id number] [place] [address] 90[address] 18 Feb, 2012 [facility] [address] [id number] [place] [address] 18 Feb, 2012 [facility] [place] [facility] [address] [id number] [place] [address] 17 Feb, 2012 [facility] [address] [id number] [place] [address] 1494 17 Feb, 2012 [facility] [place] [facility] [address] [id number] [place] [address] Feb, [facility] [place] [facility] [address] [id number] [place] [address] Feb, [facility] [place] [facility] [address] [id number] [place] [address]71 Jan, [facility] [place] [facility] [address] [id number] [place] [address] 7816 Jan, [facility] [place] [facility] [address] [id number] [place] [address] Jan, [facility] [place] [facility] [address] [id number] [place] [address] Jan, [facility] [place] [facility] [address] [id number] [place] [address] 4[address] Jan, [facility] [place] [facility] [address] [id number] [place] [address] Jan, [facility] [place] [facility] [address] [id number] [place] [address] 9947 Jan, [facility] [place] [facility] [address] [id number] [place] [address] 2401 Jan, [facility] [place] [facility] [address] [id number] [place] [address] 4547 Jan, [facility] [place] [facility] [address] [id number] [place] [address] Jan, [facility] [place] [facility] [address] [id number] [place] [address]645 Jan, [facility] [place] [facility] [address] [id number] [place] [address] Jan, [facility] [place] [facility] [address] [id number] [place] [address] 26[address] Jan, [facility] [place] [facility] [address] [id number] [place] [address]261 Jan, [facility] [place] [facility] [address] [id number] [place] [address] Jan, [facility] [place] [facility] [address] [id number] [place] [address] 7416 Jan, [facility] [place] [facility] [address] [id number] [place] [address] 2959 Dec, [facility] [place] [facility] [address] [id number] [place] [address] 6068 Dec, [facility] [place] [facility] [address] [id number] [place] [address] 1467 Dec, [facility] [place] [facility] [address] [id number] [place] [address] 9865 Dec, [facility] [place] [facility] [address] [id number] [place] [address] 7963 Dec, [facility] [place] [facility] [address] [id number] [place] [address] 5145 Dec, [facility] [place] [facility] [address] [id number] [place] [address] 1437 Dec, [facility] [place] [facility] [address] [id number] [place] [address] 3088 Dec, [facility] [place] [facility] [address] [id number] [place] [address] Dec, [facility] [place] [facility] [address] [id number] [place] [address] 05 Dec, 2011 [facility] [place] [facility] [address] [id number] [place] [address] 2659 18 Nov, 2011 [facility] [place] [facility] [address] [id number] [place] [address]69 13 Nov, 2011 [facility] [place] [facility] [address] [id number] [place] [address] 7270 24 Oct, 2011 [facility] [place] [facility] [address] [id number] [place] [address] Oct, [facility] [place] [facility] [address] [id number] [place] [address] 9622 Oct, [facility] [place] [facility] [address] [id number] [place] [address] 5377 Oct, [facility] [place] [facility] [address] [id number] [place] [address] 5886 Oct, [facility] [place] [facility] [address] [id number] [place] [address] 4146 Oct, [facility] [place] [facility] [address] [id number] [place] [address]- 7784 Oct, [facility] [place] [facility] [address] [id number] [place] [address] 2491 Sep, [facility] [place] [facility] [address] [id number] [place] [address] 8308 Aug, [facility] [place] [facility] [address] [id number] [place] [address]- 4224 Aug, [facility] [place] [facility] [address] [id number] [place] [address] 8163 Aug, [facility] [place] [facility] [address] [id number] [place] [address] 6321 Aug, [facility] [place] [facility] [address] [id number] [place] [address] 7005 Aug, [facility] [place] [facility] [address] [id number] [place] [address] 0861 July, [facility] [place] [facility] [address] [id number] [place] [address] 5515 July, [facility] [place] [facility] [address] [id number] [place] [address]- 0123 July, [facility] [place] [facility] [address] [id number] [place] [address]- 2904 Jun, [facility] [place] [facility] [address] [id number] [place] [address]- 5040 05 Jun, 2011 [facility] [place] [facility] [address] [id number] [place] [address]- 3056 Jun, [facility] [place] [facility] [address] [id number] [place] [address]- 6466 Jun, [facility] [place] [facility] [address] [id number] [place] [address]- 0902 30 May, 2011 [facility] [place] [facility] [address] [id number] [place] [address]- 3020 30 May, 2011 [facility] [place] [facility] [address] [id number] [place] [address]- 8839 29 May, 2011 [facility] [place] [facility] [address] [id number] [place] [address]- 8208 May, [facility] [place] [facility] [address] [id number] [place] [address]- 0825 May, [facility] [place] [facility] [address] [id number] [place] [address]- 8118 May, [facility] [place] [facility] [address] [id number] [place] [address]- 9948 May, [facility] [place] [facility] [address] [id number] [place] [address]- 5037 May, [facility] [place] [facility] [address] [id number] [place] [address]- 3128 08 May, 2011 [facility] [place] [facility] [address] [id number] [place] [address]- 7007 05 May, 2011 [facility] [place] [facility] [address] [id number] [place] [address]- 7890 May, [facility] [place] [facility] [address] [id number] [place] [address]- 8541 May, [facility] [place] [facility] [address] [id number] [place] [address]- 1006 31 Mar, 2011 [facility] [place] [facility] [address] [id number] [place] [address]- 9593 Mar, [facility] [place] [facility] [address] [id number] [place] [address]- 1873 28 Feb, 2011 [facility] [place] [facility] [address] [id number] [place] [address] Feb, [facility] [place] [facility] [address] [id number] [place] [address]- 2056 20 Feb, 2011 [facility] [place] [facility] [address] [id number] [place] [address]- 3230 15 Feb, 2011 [facility] [place] [facility] [address] [id number] [place] [address]- 4706 13 Feb, 2011 [facility] [place] [facility] [address] [id number] [place] [address]- 2865 Feb, [facility] [place] [facility] [address] [id number] [place] [address]- 5176 Feb, [facility] [place] [facility] [address] [id number] [place] [address]- 8802 Jan, [facility] [place] [facility] [address] [id number] [place] [address]- 3523 Jan, [facility] [place] [facility] [address] [id number] [place] [address]- 7710 Jan, [facility] [place] [facility] [address] [id number] [place] [address]- 4676 17 Jan, 2011 [facility] [place] [facility] [address] [id number] [place] [address]- 0941 07 Jan, 2011 [facility] [place] [facility] [address] [id number] [place] [address]- 0394 03 Jan, 2011 [facility] [place] [facility] [address] [id number] [place] [address]- 5800 27 Dec, 2010 [facility] [place] [facility] [address] [id number] [place] [address]- 4725 27 Dec, 2010 [facility] [address] [id number] [place] [address]- 1899 Dec, [facility] [address] [id number] [place] [address]- 4856 July, [facility] [address] [id number] [place] [address]- 9955 July, [facility] [address] [id number] [place] [address]- 2549 Feb, [facility] [address] [id number] [place] [address]- 9448 Jan, [facility] [address] [id number] [place] [address]- 0666 Dec, [facility] [address] [id number] [place] [address]- 7232 Dec, [facility] [address] [id number] [place] [address]- 7872 15 Sep, 2009 [facility] [address] [id number] [place] [address]- 7996 Aug, [facility] [address] [id number] [place] [address]- 4977 Jun, [facility] [address] [id number] [place] [address]- 3952 Jun, [facility] [address] [id number] [place] [address]- 7460 Jan, [facility] [place] [facility] [address] [id number] [place] [address]- 9467 Jan, [facility] [place] [facility] [address] [id number] [place] [address]- 4406 Jan, [facility] [address] [id number] [place] [address]- 4140 Jan, [facility] [address] [id number] [place] [address] 2546 Dec, [facility] [id number] [place] [address] 2546 Dec, [facility] [address] [id number] [place] [address] 2546 Dec, [facility] [id number] [address]- 2546 Nov, [facility] [id number] [place] [address] 2542 July, [facility] [id number] [place] [address] 2546 May, [facility] [id number] [place] [address] 2546 Apr, [facility] [id number] [place] [address] 2546 Feb, [facility] [address] [id number] [address]- 2818 Dec, IMMUNIZATIONS No Known Immunizations SOCIAL HISTORY Never Assessed REASON FOR VISIT f/u PLAN OF CARE Activity Details Follow Up 2 Weeks Reason: VITAL SIGNS MEDICATIONS Unknown Medications RESULTS No Results PROCEDURES Procedure Date Ordered Result Body Site Psychotherapy, patient &/family, 30 minutes, established patient September 01, 2017 INSTRUCTIONS MEDICATIONS ADMINISTERED No Known Medications [...]
--- NOTE | 2018-06-14 14:40 | NUR ---
Offered active listening and compassionate present. Pt states she wants to heal up soon so she can accompany her at the hospital next week for his medical appointments
--- OUTSIDE RECORDS SUMMARY | 2018-06-14 14:41 | XMS REPORT ---
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 Z79.4 Active 275940951 Problem Hyperlipidemia, unspecified E78.5 Active 03161507 Problem Type 2 diabetes mellitus with complication E11.8 Active 078949495 Problem New daily persistent headache G44.52 Active 259129866 Problem Acute bilateral low back pain with right-sided sciatica M54.41 Active 545559933 Problem Obesity, unspecified 278.00 Active 618930714 Problem Hyperlipidemia 272.4 Active 10667825 Problem Post laminectomy syndrome M96.1 Active 32335577 Problem Eye exam normal Z01.00 Active 129853754 Problem 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 Active 16909202 Problem Non compliance with medical treatment Z91.19 Active 5530456 Problem Bipolar disorder, in partial remission, most recent episode manic F31.73 Active 75385084 Problem Diabetes E11.9 Active 369993327 Problem Extreme poverty Z59.5 Active 30004299 Problem Irritable bowel syndrome with diarrhea K58.0 Active 792966596 ALLERGIES No Information ENCOUNTERS Encounter Location Date Diagnosis [facility] [address], [place] [address] Nov, [facility] [address], [place] [address] Nov, [facility] [id number] [place] [address] 18550- 7316 Nov[address] [place] [id number] [place] [address] 22222- 0074 Nov, [facility] [id number] [place] [address] 05671- 5819 Oct, Bipolar 1 disorder F31.9 ; 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 and Extreme poverty Z59.5 [place] [address] 11954- 5819 Oct, Type 2 diabetes mellitus with hyperglycemia E11.65 ; medical terminologist current use of insulin Z79.4 and Other acute gastritis without hemorrhage K29.00 [facility] [id number] [place] [address] 45452- 4777 Oct, Bipolar 1 disorder F31.9 ; 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 and Extreme poverty Z59.5 [place] [id number] [place] [address] 42845- 0380 Sep, Diarrhea, unspecified R19.7 and Vomiting, unspecified R11.10 [place] [id number] [place] [address] 97288- 4127 Aug, Type 2 diabetes mellitus with complication E11.8 [facility] [facility] [id number] [place] [address] 52894- 0219 Aug, [facility] [id number] [place] [address] 49279- 1378 Aug, Bipolar 1 disorder F31.9 ; 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 and Extreme poverty Z59.5 [place] [id number] [place] [address] 57429- 6247 Aug, 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 and Bipolar disorder, in partial remission, most recent episode manic F31.73 [place] [id number] [place] [address] 52346- 3800 Aug, Bipolar 1 disorder F31.9 [place] [address], [place] [address] Aug, [facility] [id number] [place] [address] 86505- 0925 Aug, [facility] [id number] [place] [address] 47685- 7860 Aug, Bipolar 1 disorder F31.9 ; 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 and Extreme poverty Z59.5 [place] [id number] [place] [address] 92270- 1846 July, Type 2 diabetes mellitus with complication E11.8 [facility] [id number] [place] [address] 68021- 7819 July, Bipolar 1 disorder F31.9 ; 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 and Extreme poverty Z59.5 [place] [id number] [place] [address] 28115- 2456 Jun, Bipolar 1 disorder F31.9 ; 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 and Extreme poverty Z59.5 [place] [address] [place] [address] 84395- 7596 Jun, Bipolar 1 disorder F31.9 ; 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 and Extreme poverty Z59.5 [place] [address] [place] [address] 94466- 5747 Jun, Bipolar 1 disorder F31.9 ; 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 and Extreme poverty Z59.5 [place] [id number] [place] [address] 31728- 5705 May, Urinary tract infection without hematuria, site unspecified N39.0 [place] [id number] [place] [address] 30464- 7932 May, Bipolar 1 disorder F31.9 ; 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 and Extreme poverty Z59.5 [place] [id number] [place] [address] 31050- 7007 Apr, Diabetes E11.9 and Breast cancer screening Z12.31 [place] [id number] [place] [address] 10723- 0402 Apr, Bipolar 1 disorder F31.9 and 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 [place] [id number] [place] [address] 08537- 7498 Mar, Bipolar 1 disorder F31.9 ; 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 and Extreme poverty Z59.5 [place] [address] 18980- 2907 Mar, New daily persistent headache G44.52 ; Leg pain 729.5 and History of carpal tunnel release Z98.890 [place] [id number] [place] [address] 98002- 5545 Mar, Hyperlipidemia, unspecified E78.5 [place] [address] 22963- 7162 Mar, Bipolar 1 disorder F31.9 ; 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 and Extreme poverty Z59.5 [place] [address] 56684- 5635 Feb, Bipolar 1 disorder F31.9 ; 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 and Extreme poverty Z59.5 [facility] [id number] [place] [address] 84131- 9962 Feb, Diabetes E11.9 [place] [address] 80054- 3493 Feb, Viral syndrome B34.[address] 76972- 7130 Jan, Other viral agents as the cause of diseases classified elsewhere B97.89 and Acute upper respiratory infection, unspecified J06.9 [facility] [id number] [place] [address] 73861- 5895 Jan, Bipolar 1 disorder F31.9 and 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 [place] [id number] [place] [address] 41384- 8851 Jan, Bipolar 1 disorder F31.9 ; 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 and Extreme poverty Z59.5 [place] [id number] [place] [address] 27339- 8635 Dec, Diabetes E11.9 [place] [address] 852948- 1875 Dec, Diabetes E11.9 and Encounter for immunization Z23 [place] [id number] [place] [address] 80016- 6282 Dec, Bipolar 1 disorder F31.9 ; 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 and Extreme poverty Z59.5 [place] [id number] [place] [address] 92232- 3847 Dec, Back pain M54.9 [facility] [id number] [place] [address] 19894- 1837 07 Nov, 2016 [place] [id number] [place] [address] 54607- 5353 Nov, Bipolar 1 disorder F31.9 ; 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 and Extreme poverty Z59.5 [facility] [id number] [place] [address] 69163- 6504 Nov, Bipolar 1 disorder F31.9 ; 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 and Extreme poverty Z59.5 [place] [address] [place] [address] 18774- 0050 Oct, 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 and Bipolar 1 disorder F31.9 [place] [id number] [place] [address] 65863- 7817 Oct, Bipolar 1 disorder F31.9 ; 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 and Extreme poverty Z59.5 [place] [id number] [place] [address] 54558- 8521 Oct, Back pain M54.9 [facility] [id number] [place] [address] 90260- 2140 Oct, 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 and Type 2 diabetes mellitus with complication E11.8 [facility] [id number] [place] [address] 64557- 8466 Sep, Bipolar 1 disorder F31.9 ; 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 and Extreme poverty Z59.5 [place] [id number] [place] [address] 67592- 1482 Sep, 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 and Bipolar 1 disorder F31.9 [place] [id number] [place] [address] 10491- 0783 Sep, Bipolar 1 disorder F31.9 ; 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 and Extreme poverty Z59.5 [place] [id number] [place] [address] 45051- 5453 Aug, Diabetes E11.9 ; Hyperlipidemia, unspecified E78.5 and Lumbar radiculopathy M54.16 [facility] [id number] [place] [address] 11242- 9703 Aug, Bipolar 1 disorder F31.9 ; 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 and Extreme poverty Z59.5 [place] [id number] [place] [address] 09096- 0223 Aug, [place] [id number] [place] [address] 54083- 5914 Aug, [facility] [id number] [place] [address] 08195- 7837 Aug, [place] [id number] [place] [address] 65656- 7655 July, [place] [id number] [place] [address] 85681- 7804 July, Acute bilateral low back pain with right-sided sciatica M54.41 [place] [address], [place] [address]- 0819 July, Bipolar 1 disorder F31.9 ; 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 and Extreme poverty Z59.5 [facility] [id number] [place] [address] 75309- 0611 July, Back pain M54.9 and Diabetes E11.9 [place] [id number] [place] [address] 82216- 1810 Jun, Bipolar 1 disorder F31.9 ; 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 and Extreme poverty Z59.5 [place] [id number] [place] [address] 50118- 4090 Jun, Bipolar 1 disorder F31.9 ; 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 and Extreme poverty Z59.5 [place] [id number] [place] [address] 10261- 2301 May, Visit for pelvic exam Z01.419 ; Acute vaginitis N76.0 and Diabetes E11.9 [facility] [id number] [place] [address] 92048- 6282 May, Bipolar 1 disorder F31.9 ; 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 and Extreme poverty Z59.5 [place] [id number] [place] [address] 24863- 1400 May, [place] [id number] [place] [address] 12905- 4763 May, [facility] [id number] [place] [address] 46358- 6847 May, Bipolar 1 disorder F31.9 ; 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 and Extreme poverty Z59.5 [place] [address] [place] [address] 32191- 5646 May, Hyperlipidemia, unspecified E78.5 [place] [id number] [place] [address] 57937- 0474 Apr, Breast cancer screening Z12.39 [place] [id number] [place] [address] 25080- 4925 Mar, [place] [id number] [place] [address] 36913- 7427 Mar, Bipolar disorder, current episode mixed, unspecified F31.60 [place] [id number] [place] [address] 02416- 7226 Mar, Bipolar 1 disorder F31.9 ; 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 and Extreme poverty Z59.5 [place] [id number] [place] [address] 38707- 3400 Feb, Acute nasopharyngitis J00 [place] [address] 82529- 8079 27 Feb, 2016 Dental examination Z01.20 [place] [address] 17443- 2811 21 Feb, 2016 Dental cavities K02.9 and Chronic periodontitis, unspecified K05.30 [place] [id number] [place] [address] 52695- 2679 13 Feb, 2016 Low back pain M54.5 and Extreme poverty Z59.5 [place] [id number] [place] [address] 47364- 3126 Feb, [facility] [id number] [place] [address] 90664- 3651 05 Feb, 2016 Routine gynecological examination V72.31 ; Breast cancer screening Z12.39 and Herpes simplex type 1 infection B00.9 [place] [id number] [place] [address] 51282- 5653 Feb, Diabetes E11.9 [place] [id number] [place] [address] 26821- 9887 Feb, Encounter for dental examination and cleaning without abnormal findings Z01.20 [place] [address] 51993- 2352 Jan, Hyperlipidemia, unspecified E78.5 [place] [id number] [place] [address] 21941- 7882 Jan, Bipolar 1 disorder F31.9 ; 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 and Extreme poverty Z59.5 [place] [id number] [place] [address] 18715- 2910 Jan, Diabetes E11.9 [place] [address] 681077- 4742 17 Jan, 2016 Diabetes E11.9 [place] [id number] [place] [address] 93667- 9303 14 Dec, 2015 Bipolar 1 disorder F31.9 ; 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 and Extreme poverty Z59.5 [place] [id number] [place] [address] 40165- 7621 13 Dec, 2015 Bipolar disorder, current episode mixed, unspecified F31.60 and 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 [place] [id number] [place] [address] 43480- 2514 16 Nov, 2015 Bipolar 1 disorder F31.9 ; 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 ; Extreme poverty Z59.5 and Non compliance with medical treatment Z91.19 [place] [id number] [place] [address] 70040- 1594 Oct, [place] [id number] [place] [address] 67816- 3085 Oct, Dental caries K02.9 [place] [id number] [place] [address] 64123- 9548 Oct, Low back pain M54.5 and Other chronic pain G89.29 [place] [id number] [place] [address] 20256- 2673 Oct, Bipolar 1 disorder F31.9 ; 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 ; Extreme poverty Z59.5 and Non compliance with medical treatment Z91.19 [place] [address], [place] [address]- 8262 Oct, [place] [id number] [place] [address] 90581- 7102 Oct, [place] [id number] [place] [address] 12365- 9178 Oct, Dental examination Z01.20 [place] [id number] [place] [address] 20597- 1178 Oct, Bipolar 1 disorder F31.9 ; 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 ; Extreme poverty Z59.5 and Non compliance with medical treatment Z91.19 [place] [id number] [place] [address] 54668- 9343 Oct, [place] [id number] [place] [address] 43836- 8367 Sep, Type 2 diabetes mellitus with complication E11.8 [facility] [id number] [place] [address] 04614- 3739 Sep, Bipolar disorder, current episode mixed, unspecified F31.60 [place] [id number] [place] [address] 33055- 5536 Sep, Bipolar disorder, current episode mixed, unspecified F31.60 [facility] [address] [place] [address] 58462- 6584 Sep, Bipolar disorder, in partial remission, most recent episode manic F31.73 ; 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 ; Extreme poverty Z59.5 and Non compliance with medical treatment Z91.19 [place] [address] [place] [address] 88170- 0278 Aug, Bipolar disorder, in partial remission, most recent episode manic F31.73 ; 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 ; Extreme poverty Z59.5 and Non compliance with medical treatment Z91.19 [place] [address] [place] [address] 85147- 4093 Aug, Bipolar disorder, in partial remission, most recent episode manic F31.73 ; 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 ; Extreme poverty Z59.5 and Non compliance with medical treatment Z91.19 [place] [address] [place] [address] 09932- 5100 Aug, [place] [id number] [place] [address] 74670- 4096 July, Bipolar disorder, in partial remission, most recent episode manic F31.73 ; 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 ; Extreme poverty Z59.5 and Non compliance with medical treatment Z91.19 [place] [id number] [place] [address] 70253- 7735 July, Bipolar disorder, current episode mixed, unspecified F31.60 [facility] [id number] [place] [address] 42863- 7603 July, Bipolar disorder, in partial remission, most recent episode manic F31.73 ; 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 ; Extreme poverty Z59.5 and Non compliance with medical treatment Z91.19 [place] [id number] [place] [address] 67743- 3899 July, FPC current 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 Z79.891 and Chronic pain G89.29 [place] [id number] [place] [address] 51038- 5028 Jun, medical terminologist current 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 Z79.891 and Bipolar 1 disorder F31.9 [place] [address] [place] [address] 70707- 5246 Jun, [place] [id number] [place] [address] 43130- 5515 Jun, [place] [id number] [place] [address] 65318- 9474 Jun, [place] [id number] [place] [address] 31307- 7694 Jun, Bipolar disorder, in partial remission, most recent episode manic F31.73 ; 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 and Non compliance with medical treatment Z91.19 [place] [address] [place] [address] 13312- 6673 May, Bipolar disorder, in partial remission, most recent episode manic F31.73 ; 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 and Non compliance with medical treatment Z91.19 [place] [id number] [place] [address] 11570- 0988 May, Bipolar disorder, in partial remission, most recent episode manic F31.73 [place] [id number] [place] [address] 00863- 5520 May, Diabetes E11.9 and Chronic pain G89.29 [place] [id number] [place] [address] 62713- 1560 May, [place] [id number] [place] [address] 09716- 8305 May, Bipolar disorder, in partial remission, most recent episode manic F31.73 ; Non compliance with medical treatment Z91.19 and 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 [place] [address] [place] [address] 89146- 8305 May, Type 2 diabetes mellitus with complication E11.8 and Back pain M54.9 [place] [address] [place] [address] 52024- 3859 May, Bipolar disorder, in partial remission, most recent episode manic F31.73 and 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 [place] [address] [place] [address] 31189- 8024 Apr, [place] [id number] [place] [address] 80583- 9304 Apr, [place] [address] [place] [address] 73240- 2351 Apr, [place] [id number] [place] [address] 39903- 2382 09 Apr, 2015 Diabetes E11.9 ; Irritable bowel syndrome with diarrhea K58.0 and Lumbar radiculopathy M54.16 [place] [id number] [place] [address] 07448- 0424 02 Apr, 2015 Breast screening Z12.[address] 49336- 7194 02 Apr, 2015 Bipolar disorder, in partial remission, most recent episode manic F31.73 ; Non compliance with medical treatment Z91.19 and 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 [place] [address]- 1748 Mar, Edema, unspecified type R60.9 and Type 2 diabetes mellitus with complication E11.[address] 77645- 3223 Mar, Bipolar disorder, in partial remission, most recent episode manic F31.73 ; Non compliance with medical treatment Z91.19 ; 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 and Extreme poverty Z59.5 [place] [id number] [place] [address] 37647- 7275 Mar, Bipolar disorder, current episode mixed, unspecified F31.60 ; 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 ; Extreme poverty Z59.5 and Generalized anxiety disorder F41.1 [place] [id number] [place] [address] 01371- 5535 Mar, Bipolar disorder, in partial remission, most recent episode manic F31.73 ; 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 and Extreme poverty Z59.5 [place] [id number] [place] [address] 48955- 3221 Feb, Bipolar disorder, in partial remission, most recent episode manic F31.73 ; 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 and Extreme poverty Z59.[address] 98604- 3154 Feb, Bipolar disorder, in partial remission, most recent episode manic F31.73 ; 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 and Extreme poverty Z59.5 [place] [id number] [place] [address] 85079- 8439 Feb, [place] [id number] [place] [address] 65158- 8924 Jan, Type 2 diabetes mellitus with complication E11.8 and Petechiae R23.3 [place] [address] 77924- 7932 Jan, Type 2 diabetes mellitus with complication E11.8 ; Edema, unspecified R60.9 ; Petechiae R23.3 and Diabetes E11.9 [place] [id number] [place] [address] 89093- 8082 Jan, Bipolar disorder, in partial remission, most recent episode manic F31.73 ; 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 and Extreme poverty Z59.5 [place] [id number] [place] [address] 92321- 3402 Jan, Bipolar disorder, in partial remission, most recent episode manic F31.73 ; 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 and Extreme poverty Z59.5 [place] [id number] [place] [address] 23611- 8262 Dec, Bipolar disorder, in partial remission, most recent episode manic F31.73 [place] [id number] [place] [address] 83057- 5702 Dec, Edema, due to unspecified malnutrition type, unspecified edema R60.9 and Essential hypertension I10 [place] [address] [place] 286025- 5566 Dec, Bipolar disorder, in partial remission, most recent episode manic F31.73 [place] [id number] [place] [address] 82205- 6312 Nov, Bipolar I disorder, most recent episode (or current) mixed, unspecified 296.60 [facility] [address], [place] [address]- 7922 Nov, Stress incontinence, female 625.6 ; Back pain 724.5 and Leg pain 729.5 [facility] [address], [place] [address]- 4363 Nov, Generalized anxiety disorder 300.02 and Bipolar II disorder 296.89 [facility] [id number] [place] [address] 08148- 5072 Nov, Bipolar I disorder, most recent episode (or current) mixed, unspecified 296.60 [facility] [id number] [place] [address] 69124- 5863 Oct, [facility] [id number] [place] [address] 85307- 9807 Oct, [facility] [id number] [place] [address] 79732- 6482 Oct, [facility] [id number] [place] [address] 11369- 1774 Oct, Bipolar I disorder, most recent episode (or current) mixed, unspecified 296.60 [facility] [address], [place] [address] 408[address] Sep, Diabetes 250.00 [facility] [id number] [place] [address] 43211- 9435 Sep, Bipolar I disorder, most recent episode (or current) mixed, unspecified 296.60 [facility] [address], [place] [address] 2789 Sep, [facility] [id number] [address] 2466 Sep, [facility] [address], [place] [address] 8842 Sep, Bipolar I disorder, most recent episode (or current) mixed, unspecified 296.60 [facility] [address] [address] 1706 Sep, Bipolar I disorder, most recent episode (or current) mixed, unspecified 296.60 [facility] [address] 5[address] Sep, [facility] [id number] [place] [address] 845008- 3812 Sep, Anxiety 300.00 ; Diabetes 250.00 and Hyperlipidemia 272.4 [facility] [id number] [place] [address] 23640- 0637 Aug, [facility] [id number] [place] [address] 08239- 3906 Aug, [facility] [id number] [place] [address] 43903- 5443 Aug, [facility] [id number] [place] [address] 78104- 3127 Aug, Bipolar I disorder, most recent episode (or current) mixed, unspecified 296.60 [facility] [id number] [place] [address] 47167- 5217 Aug, Generalized anxiety disorder 300.02 and Bipolar II disorder 296.89 [facility] [address], [place] [address] 2303 July, Bipolar I disorder, most recent episode (or current) mixed, unspecified 296.60 [facility] [address], [place] [address]- 2736 July, Cough 786.2 [facility] [id number] [place] [address] 34722- 4788 July, Bipolar I disorder, most recent episode (or current) mixed, unspecified 296.60 [facility] [address], [place] [address]- 6258 Jun, Diabetes 250.00 [facility] [id number] [place] [address]- 6246 14 Jun, 2014 [facility] [place] [facility] [address] [id number] [place] [address]- 5893 13 Jun, 2014 [facility] [place] [facility] [address] [id number] [place] [address]- 8325 24 May, 2014 [facility] [place] [facility] [address] [id number] [place] [address]- 7182 24 May, 2014 [facility] [place] [facility] [address] [id number] [place] [address]- 0825 10 May, 2014 [facility] [place] [facility] [address] [id number] [place] [address]- 4306 10 May, 2014 [facility] [place] [facility] [address] [facility] [id number] [place] [address]- 3959 10 May, 2014 [facility] [place] [facility] [address] [facility] [id number] [place] [address]- 8104 10 May, 2014 [facility] [place] [facility] [address] [facility] [id number] [place] [address]- 3087 20 Apr, 2014 [facility] [place] [facility] [address] [facility] [id number] [place] [address]- 0803 20 Apr, 2014 [facility] [place] [facility] [address] [facility] [id number] [place] [address]- 8685 11 Apr, 2014 [facility] [place] [facility] [address] [facility] [id number] [place] [address]- 2839 11 Apr, 2014 [facility] [place] [facility] [address] [facility] [id number] [place] [address]- 2547 10 Apr, 2014 [facility] [place] [facility] [address] [id number] [place] [address]- 8293 10 Apr, 2014 [facility] [place] [facility] [address] [facility] [id number] [place] 6084 05 Apr, 2014 [facility] [place] [facility] [address] [facility] [id number] [place] [address]- 6242 Apr, [facility] [place] [facility] [address] [id number] [place] [address]- 4694 Mar, [facility] [place] [facility] [address] [id number] [place] [address]- 5923 Mar, [facility] [place] [facility] [address] [id number] [place] [address]- 3681 Mar, [facility] [place] [facility] [address] [id number] [place] [address]- 6969 Mar, [facility] [place] [facility] [address] [id number] [place] [address]- 9209 Mar, [facility] [place] [facility] [address] [id number] [place] [address]- 2238 Mar, [facility] [place] [facility] [address] [id number] [place] [address]- 7067 Mar, [facility] [place] [facility] [address] [id number] [place] [address]- 6645 Mar, [facility] [place] [facility] [address] [id number] [place] [address]- 0560 Feb, [facility] [place] [facility] [address] [id number] [place] [address]- 3992 Feb, [facility] [place] [facility] [address] [id number] [place] [address]- 6400 Feb, [facility] [place] [facility] [address] [id number] [place] [address]- 7862 Feb, [facility] [place] [facility] [address] [id number] [place] [address]- 7325 Feb, [facility] [place] [facility] [address] [id number] [place] [address]- 0088 Feb, [facility] [place] [facility] [address] [id number] [place] [address]- 1193 Feb, [facility] [place] [facility] [address] [id number] [place] [address]- 5684 Feb, [facility] [place] [facility] [address] [id number] [place] [address]- 7314 Feb, [facility] [place] [facility] [address] [id number] [place] [address]- 5612 Feb, [facility] [place] [facility] [address] [id number] [place] [address]- 6803 Jan, [facility] [place] [facility] [address] [id number] [place] [address]- 5710 Jan, [facility] [place] [facility] [address] [id number] [place] [address]- 4884 Jan, [facility] [place] [facility] [address] [id number] [place] [address]- 9953 Jan, [facility] [place] [facility] [address] [id number] [place] [address]- 8323 Jan, [facility] [place] [facility] [address] [id number] [place] [address]- 3358 Jan, [facility] [place] [facility] [address] [id number] [place] [address]- 5293 Jan, [facility] [place] [facility] [address] [id number] [place] [address]- 9384 Jan, [facility] [place] [facility] [address] [id number] [place] [address]- 8589 Jan, [facility] [place] [facility] [address] [id number] [place] [address]- 3924 Jan, [facility] [place] [facility] [address] [id number] [place] [address]- 4942 Jan, [facility] [place] [facility] [address] [id number] [place] [address]- 7528 Jan, [facility] [place] [facility] [address] [id number] [place] [address]- 1661 Jan, [facility] [place] [facility] [address] [id number] [place] [address]- 3762 Jan, [facility] [place] [facility] [address] [id number] [place] [address]- 6341 Jan, [facility] [place] [facility] [address] [id number] [place] [address]- 1437 Dec, [facility] [place] [facility] [address] [id number] [place] [address]- 8437 Dec, [facility] [place] [facility] [address] [id number] [place] 3117 Dec, [facility] [place] [facility] [address] [id number] [place] [address]- 6362 Dec, [facility] [place] [facility] [address] [id number] [place] [address]- 0551 Dec, [facility] [place] [facility] [address] [id number] [place] [address]- 5761 Dec, [facility] [place] [facility] [address] [id number] [place] [address]- 0402 Dec, [facility] [place] [facility] [address] [id number], [place] [address]- 4018 Dec, [facility] [place] [facility] [address] [id number], [place] [address]- 8484 Nov, [facility] [place] [facility] [address] [id number], [place] [address]- 7915 25 Nov, 2013 [facility] [place] [facility] [address] [id number] [place] [address]- 3691 10 Nov, 2013 [facility] [place] [facility] [address] [id number] [place] [address]- 7836 10 Nov, 2013 [facility] [place] [facility] [address] [id number], [place] [address]- 5303 08 Nov, 2013 [facility] [place] [facility] [address] [id number], [place] [address]- 9951 08 Nov, 2013 [facility] [place] [facility] [address] [id number] [place] [address]- 3922 08 Nov, 2013 [facility] [place] [facility] [address] [id number] [place] [address]- 8805 08 Nov, 2013 [facility] [place] [facility] [address] [id number] [place] [address]- 5505 08 Nov, 2013 [facility] [place] [facility] [address] [id number] [place] [address]- 0419 08 Nov, 2013 [facility] [place] [facility] [address] [id number] [place] [address]- 8095 Nov, 2013 [facility] [place] [facility] [address] [id number] [place] [address]- 3188 Nov, 2013 [facility] [place] [facility] [address] [id number] [place] [address]- 4325 Nov, 2013 [facility] [place] [facility] [address] [id number] [place] [address]- 6670 Nov, 2013 [facility] [place] [facility] [address] [id number] [place] [address]- 9610 Nov, 2013 [facility] [place] [facility] [address] [id number] [place] [address]- 8307 Oct, [facility] [place] [facility] [address] [id number] [place] [address]- 4494 Oct, [facility] [place] [facility] [address] [id number] [place] [address]- 2454 Oct, [facility] [place] [facility] [address] [id number] [place] [address]- 2514 Oct, [facility] [place] [facility] [address] [id number] [place] [address]- 4269 Oct, [facility] [place] [facility] [address] [id number] [place] [address]- 8234 Oct, [facility] [place] [facility] [address] [id number] [place] [address]- 7468 Oct, [facility] [place] [facility] [address] [id number] [place] [address]- 9978 Oct, [facility] [place] [facility] [address] [id number] [place] [address]- 1076 Oct, [facility] [place] [facility] [address] [id number] [place] [address]- 4835 Oct, [facility] [place] [facility] [address] [id number] [place] [address]- 9631 Oct, [facility] [place] [facility] [address] [id number] [place] [address]- 8733 Oct, [facility] [place] [facility] [address] [id number] [place] [address]- 4537 Oct, [facility] [place] [facility] [address] [id number] [place] [address]- 6688 Oct, [facility] [place] [facility] [address] [id number] [place] [address]- 9395 Sep, [facility] [place] [facility] [address] [id number] [place] [address]- 9681 Sep, [facility] [place] [facility] [address] [id number] [place] [address]- 0965 Sep, [facility] [place] [facility] [address] [id number] [place] [address]- 6114 Sep, [facility] [place] [facility] [address] [id number] [place] [address]- 5671 Sep, [facility] [place] [facility] [address] [id number] [place] [address]- 4127 Sep, [facility] [place] [facility] [address] [id number] [place] [address]- 1416 Sep, [facility] [place] [facility] [address] [id number] [place] [address]- 6002 Sep, [facility] [place] [facility] [address] [id number] [place] [address]- 2311 Aug, [facility] [place] [facility] [address] [id number] [place] [address]- 5610 Aug, [facility] [place] [facility] [address] [id number] [place] [address]- 0221 Aug, [facility] [place] [facility] [address] [id number] [place] [address]- 7052 Aug, [facility] [place] [facility] [address] [id number] [place] [address]- 5104 Aug, [facility] [place] [facility] [address] [id number] [place] [address]- 2333 Aug, [facility] [place] [facility] [address] [id number] [place] [address]- 6560 Aug, [facility] [place] [facility] [address] [id number] [place] [address]- 0794 Aug, [facility] [place] [facility] [address] [id number] [place] [address]- 3845 July, [facility] [place] [facility] [address] [id number] [place] [address]- 4366 July, [facility] [place] [facility] [address] [id number] [place] [address]- 6792 July, [facility] [place] [facility] [address] [id number] [place] [address]- 6800 July, [facility] [place] [facility] [address] [id number] [place] [address]- 7856 July, [facility] [place] [facility] [address] [id number] [place] [address]- 0655 July, [facility] [place] [facility] [address] [id number] [place] [address]- 5351 July, [facility] [place] [facility] [address] [id number] [place] [address]- 8435 July, [facility] [place] [facility] [address] [id number] [place] [address]- 6146 Jun, [facility] [place] [facility] [address] [id number] [place] [address]- 9259 Jun, [facility] [place] [facility] [address] [id number] [place] [address]- 0705 Jun, [facility] [place] [facility] [address] [id number] [place] [address]- 9001 Jun, [facility] [place] [facility] [address] [id number] [place] [address]- 9379 Jun, [facility] [place] [facility] [address] [id number] [place] [address]- 2562 Jun, [facility] [place] [facility] [address] [id number] [place] [address]- 7570 Jun, [facility] [place] [facility] [address] [id number] [place] [address]- 0529 Jun, [facility] [place] [facility] [address] [id number] [place] [address]- 2996 Jun, [facility] [place] [facility] [address] [id number] [place] [address]- 5322 Jun, [facility] [place] [facility] [address] [id number] [place] [address]- 6807 Jun, [facility] [place] [facility] [address] [id number] [place] [address]- 0004 Jun, [facility] [place] [facility] [address] [id number] [place] [address]- 5952 May, [facility] [place] [facility] [address] [id number] [place] [address]- 2291 May, [facility] [place] [facility] [address] [id number] [place] [address]- 5949 May, [facility] [place] [facility] [address] [id number] [place] [address]- 5661 26 May, 2013 [facility] [place] [facility] [address] [id number] [place] [address]- 4310 13 May, 2013 [facility] [place] [facility] [address] [id number] [place] [address]- 9219 13 May, 2013 [facility] [place] [facility] [address] [id number] [place] [address]- 4436 12 May, 2013 [facility] [place] [facility] [address] [id number] [place] [address]- 8146 12 May, 2013 [facility] [place] [facility] [address] [id number] [place] [address]- 2892 11 May, 2013 [facility] [place] [facility] [address] [id number] [place] [address]- 3995 11 May, 2013 [facility] [place] [facility] [address] [id number] [place] [address]- 5730 11 May, 2013 [facility] [place] [facility] [address] [id number] [place] [address]- 2747 11 May, 2013 [facility] [place] [facility] [address] [id number] [place] [address]- 5251 10 May, 2013 [facility] [place] [facility] [address] [id number] [place] [address]- 7018 May, [facility] [place] [facility] [address] [id number] [place] [address]- 4566 Apr, [facility] [place] [facility] [address] [id number] [place] [address]- 4640 Apr, [facility] [place] [facility] [address] [id number] [place] [address]- 7307 Apr, [facility] [place] [facility] [address] [id number] [place] [address]- 1888 Apr, [facility] [place] [facility] [address] [id number], [place] [address]- 7374 Apr, [facility] [place] [facility] [address] [id number] [place] [address]- 9816 Apr, [facility] [place] [facility] [address] [id number] [place] [address]- 1302 Mar, [facility] [place] [facility] [address] [id number] [place] [address]- 9812 Mar, [facility] [place] [facility] [address] [id number] [place] [address]- 3674 Mar, [facility] [place] [facility] [address] [id number] [place] [address]- 9552 Mar, [facility] [place] [facility] [address] [id number] [place] [address]- 2113 Mar, [facility] [place] [facility] [address] [id number] [place] [address]- 5186 Mar, [facility] [place] [facility] [address] [id number] [place] [address]- 4942 Mar, [facility] [place] [facility] [address] [id number] [place] [address]- 1720 Mar, [facility] [place] [facility] [address] [id number] [place] [address]- 5263 Mar, [facility] [place] [facility] [address] [id number] [place] [address]- 8209 Mar, [facility] [place] [facility] [address] [id number], [place] [address]- 7545 Mar, [facility] [place] [facility] [address] [id number] [place] [address]- 1952 Mar, [facility] [place] [facility] [address] [id number] [place] [address]- 7229 Mar, [facility] [place] [facility] [address] [id number] [place] [address]- 3959 Mar, [facility] [place] [facility] [address] [id number] [place] [address]- 3565 Feb, 2012 [facility] [place] [facility] [address] [id number] [place] [address]- 7479 Feb, [facility] [place] [facility] [address] [id number] [place] [address]- 7582 Feb, [facility] [place] [facility] [address] [id number] [place] [address]- 8452 Feb, [facility] [place] [facility] [address] [id number] [place] [address]- 8292 Feb, [facility] [place] [facility] [address] [id number] [place] [address]- 4063 Feb, [facility] [place] [facility] [address] [id number] [place] 7182 Feb, [facility] [place] [facility] [address] [id number] [place] [address]- 4032 Feb, [facility] [place] [facility] [address] [id number] [place] [address]- 6611 Feb, [facility] [place] [facility] [address] [id number] [place] [address]- 0877 Feb, [facility] [place] [facility] [address] [id number] [place] [address] Feb, [facility] [place] [facility] [address] [id number] [place] [address] Feb, [facility] [place] [facility] [address] [id number] [place] [address] Feb, [facility] [place] [facility] [address] [id number] [place] [address] Feb, [facility] [place] [facility] [address] [id number] [place] [address] Feb, [facility] [place] [facility] [address] [id number] [place] [address] 05 Feb, 2012 [facility] [place] [facility] [address] [id number] [place] [address] 9485 24 Dec, 2012 [facility] [place] [facility] [address] [id number] [place] [address] 24 Dec, 2012 [facility] [place] [facility] [address] [id number] [place] [address]- 7098 16 Dec, 2012 [facility] [place] [facility] [address] [id number] [place] [address] 0462 16 Dec, 2012 [facility] [place] [facility] [address] [id number] [place] [address] 3671 16 Dec, 2012 [facility] [place] [facility] [address] [id number] [place] [address] 8103 16 Dec, 2012 [facility] [place] [facility] [address] [id number] [place] [address] 5029 14 Dec, 2012 [facility] [place] [facility] [address] [id number], [place] [address] 14 Dec, 2012 [facility] [place] [facility] [address] [id number], [place] [address] 10 Dec, 2012 [facility] [place] [facility] [address] [id number], [place] [address] 2874 10 Dec, 2012 [facility] [place] [facility] [address] [id number], [place] [address] 4082 10 Dec, 2012 [facility] [place] [facility] [address] [id number], [place] [address] 1273 10 Dec, 2012 [facility] [place] [facility] [address] [id number], [place] [address] 8568 03 Dec, 2012 [facility] [place] [facility] [address] [id number], [place] [address] 2867 25 Nov, 2012 [facility] [place] [facility] [address] [id number], [place] [address] 20 Nov, 2012 [facility] [place] [facility] [address] [id number] [place] [address] 1890 18 Nov, 2012 [facility] [address] [id number] [place] [address] 0152 16 Nov, 2012 [facility] [place] [facility] [address] [id number] [place] [address] 9596 12 Nov, 2012 [facility] [place] [facility] [address] [id number] [place] [address]- 4459 11 Nov, 2012 [facility] [place] [facility] [address] [id number] [place] [address] 2543 05 Nov, 2012 [facility] [place] [facility] [address] [id number] [place] [address] 4339 15 Oct, 2012 [facility] [place] [facility] [address] [id number] [place] [address] 9793 Oct, [facility] [address] [id number] [place] [address]- 9878 24 Sep, 2012 [facility] [address] [id number] [place] [address]- [address] Sep, [facility] [place] [facility] [address] [id number] [place] [address]- 5[address] Sep, [facility] [place] [facility] [address] [id number] [place] [address]- 3841 Sep, [facility] [place] [facility] [address] [id number] [place] [address]- 9789 15 Sep, 2012 [facility] [place] [facility] [address] [id number] [place] [address]- [address]107 Sep, [facility] [place] [facility] [address] [id number] [place] [address] 9301 Sep, [facility] [place] [facility] [address] [id number] [place] [address] 5535 Aug, [facility] [place] [facility] [address] [id number] [place] [address] 9474 Aug, [facility] [place] [facility] [address] [id number] [place] [address]- 6210 16 Aug, 2012 [facility] [address] [id number] [place] [address]- [address]654 Aug, [facility] [address] [id number] [place] [address]- 3317 11 Aug, 2012 [facility] [address] [id number] [place] [address]- 6289 Aug, [facility] [address] [id number] [place] [address]- [address] Aug, [facility] [address] [id number] [place] [address] 8647 Aug, [facility] [address] [id number] [place] [address] 3614 July, [facility] [address] [id number] [place] [address] 97[address] July, [facility] [address] [id number] [place] [address] 1342 July, [facility] [address] [id number] [place] [id number] July, [facility] [place] [facility] [address] [id number] [place] [address] 58[address] July, [facility] [address] [id number] [place] [address]- 9526 Jun, [facility] [place] [facility] [address] [id number] [place] [address]- 8767 May, [facility] [place] [facility] [address] [id number] [place] [address]- 6006 14 May, 2012 [facility] [place] [facility] [address] [id number] [place] [address]- 0483 04 May, 2012 [facility] [place] [facility] [address] [id number] [place] [address] 54[address] Apr, [facility] [address] [id number] [place] [address]15 Apr, [facility] [address] [id number] [place] [address]951 Apr, [facility] [address] [id number] [place] [address] 3[address] Mar, [facility] [address] [id number] [place] [address]- 2675 Mar, [facility] [address] [id number] [place] [address]- 2007 Mar, [facility] [address] [id number] [place] [address]- 4314 Mar, [facility] [address] [id number] [place] [address]- 6747 Mar, [facility] [address] [id number] [place] [address]- 1693 Mar, [facility] [address] [id number] [place] [address]- 2411 Mar, [facility] [address] [id number] [place] [address] 1459 Feb, [facility] [address] [id number] [place] [address]- 5226 31 Feb, 2012 [facility] [address] [id number] [place] [address]- 5745 18 Feb, 2012 [facility] [address] [id number] [place] [address] 18 Feb, 2012 [facility] [place] [facility] [address] [id number] [place] [address] 1485 17 Feb, 2012 [facility] [address] [id number] [place] [address] 17 Feb, 2012 [facility] [place] [facility] [address] [id number] [place] [address] 260[address] Feb, [facility] [place] [facility] [address] [id number] [place] [address] 59[address] Feb, [facility] [place] [facility] [address] [id number] [place] [address] 4[address] Jan, [facility] [place] [facility] [address] [id number] [place] [address] 53[address] Jan, [facility] [place] [facility] [address] [id number] [place] [address] 3970 Jan, [facility] [place] [facility] [address] [id number] [place] [address] 2974 Jan, [facility] [place] [facility] [address] [id number] [place] [address]- 8693 Jan, [facility] [place] [facility] [address] [id number] [place] [address] 8474 Jan, [facility] [place] [facility] [address] [id number] [place] [address]- 0462 Jan, [facility] [place] [facility] [address] [id number] [place] [address] 68[address] Jan, [facility] [place] [facility] [address] [id number] [place] [address] 9510 Jan, [facility] [place] [facility] [address] [id number] [place] [address]- 2906 Jan, [facility] [place] [facility] [address] [id number] [place] [address]- 40[address] Jan, [facility] [place] [facility] [address] [id number] [place] [address]- 8741 Jan, [facility] [place] [facility] [address] [id number] [place] [address]- 8777 Jan, [facility] [place] [facility] [address] [id number] [place] [address] 8171 Jan, [facility] [place] [facility] [address] [id number] [place] [address]- 2778 Jan, [facility] [place] [facility] [address] [id number] [place] [address]- 8997 Jan, [facility] [place] [facility] [address] [id number] [place] [address] 6610 Dec, [facility] [place] [facility] [address] [id number] [place] [address]- 0432 Dec, [facility] [place] [facility] [address] [id number] [place] [address]- 3030 Dec, [facility] [place] [facility] [address] [id number] [place] [address]- 7710 Dec, [facility] [place] [facility] [address] [id number] [place] [address]- 3759 Dec, [facility] [place] [facility] [address] [id number] [place] [address] 0507 Dec, [facility] [place] [facility] [address] [id number] [place] [address]- 8785 Dec, [facility] [place] [facility] [address] [id number] [place] [address] 7107 Dec, [facility] [place] [facility] [address] [id number], [place] [address] Dec, [facility] [place] [facility] [address] [id number], [place] [address] 05 Dec, 2011 [facility] [place] [facility] [address] [id number] [place] [address] 7522 18 Nov, 2011 [facility] [place] [facility] [address] [id number], [place] [address] 7865 13 Nov, 2011 [facility] [place] [facility] [address] [id number] [place] [address] 5980 24 Oct, 2011 [facility] [place] [facility] [address] [id number] [place] [address] 8596 Oct, [facility] [place] [facility] [address] [id number] [place] [address]- 3273 Oct, [facility] [place] [facility] [address] [id number] [place] [address] 3693 Oct, [facility] [place] [facility] [address] [id number] [place] [address]- 7056 Oct, [facility] [place] [facility] [address] [id number] [place] [address] 1916 Oct, [facility] [place] [facility] [address] [id number] [place] [address] 2314 Oct, [facility] [place] [facility] [address] [id number] [place] [address] 4911 Sep, [facility] [place] [facility] [address] [id number] [place] [address] 4630 Aug, [facility] [place] [facility] [address] [id number] [place] [address]- 4144 Aug, [facility] [place] [facility] [address] [id number] [place] [address]- 8745 Aug, [facility] [place] [facility] [address] [id number] [place] [address]- 1026 Aug, [facility] [place] [facility] [address] [id number] [place] [address]- 5852 Aug, [facility] [place] [facility] [address] [id number] [place] [address] 8494 July, [facility] [place] [facility] [address] [id number] [place] [address]- 6341 July, [facility] [place] [facility] [address] [id number] [place] [address]- 7211 July, [facility] [place] [facility] [address] [id number] [place] [address]- 1473 Jun, [facility] [place] [facility] [address] [id number] [place] [address]- 2425 05 Jun, 2011 [facility] [place] [facility] [address] [id number] [place] [address]- 2406 Jun, [facility] [place] [facility] [address] [id number] [place] [address]- 4466 Jun, [facility] [place] [facility] [address] [id number] [place] [address]- 9672 30 May, 2011 [facility] [place] [facility] [address] [id number] [place] [address]- 7851 30 May, 2011 [facility] [place] [facility] [address] [id number] [place] [address]- 4472 29 May, 2011 [facility] [place] [facility] [address] [id number] [place] [address] 4899 May, [facility] [place] [facility] [address] [id number] [place] [address]- 0203 May, [facility] [place] [facility] [address] [id number] [place] [address]- 8797 May, [facility] [place] [facility] [address] [id number] [place] [address]- 5727 May, [facility] [place] [facility] [address] [id number] [place] [address]- 8447 May, [facility] [place] [facility] [address] [id number] [place] [address]- 5858 08 May, 2011 [facility] [place] [facility] [address] [id number] [place] [address]- 1658 05 May, 2011 [facility] [place] [facility] [address] [id number] [place] [address]- 2840 May, [facility] [place] [facility] [address] [id number] [place] [address]- 4290 May, [facility] [place] [facility] [address] [id number] [place] [address]- 0293 31 Mar, 2011 [facility] [place] [facility] [address] [id number] [place] [address]- 7743 Mar, [facility] [place] [facility] [address] [id number] [place] [address]- 5630 28 Feb, 2011 [facility] [place] [facility] [address] [id number] [place] [address] Feb, [facility] [place] [facility] [address] [id number] [place] [address]- 1096 20 Feb, 2011 [facility] [place] [facility] [address] [id number] [place] [address]- 1181 15 Feb, 2011 [facility] [place] [facility] [address] [id number] [place] [address]- 3042 13 Feb, 2011 [facility] [place] [facility] [address] [id number] [place] [address]- 3181 Feb, [facility] [place] [facility] [address] [id number] [place] [address]- 6876 Feb, [facility] [place] [facility] [address] [id number] [place] [address]- 3704 Jan, [facility] [place] [facility] [address] [id number] [place] [address]- 9782 Jan, [facility] [place] [facility] [address] [id number] [place] [address]- 5409 Jan, [facility] [place] [facility] [address] [id number], [place] [address]- 1480 17 Jan, 2011 [facility] [place] [facility] [address] [id number] [place] [address]- 5604 07 Jan, 2011 [facility] [place] [facility] [address] [id number] [place] [address]- 2667 03 Jan, 2011 [facility] [place] [facility] [address] [id number] [place] [address]- 8061 27 Dec, 2010 [facility] [place] [facility] [address] [id number] [place] [address]- 2718 27 Dec, 2010 [facility] [address] [id number] [place] [address]- 1140 Dec, [facility] [address] [id number] [place] [address]- 8826 July, [facility] [address] [id number] [place] [address]- 3167 July, [facility] [address] [id number] [place] [address]- 2548 Feb, [facility] [address] [id number] [place] [address]- 2447 Jan, [facility] [address] [id number] [place] [address]- 3864 Dec, [facility] [address] [id number] [place] [address]- 6193 Dec, [facility] [address] [id number] [place] [address]- 9420 15 Sep, 2009 [facility] [address] [id number] [place] [address]- 3978 Aug, [facility] [address] [id number] [place] [address]- 2638 Jun, [facility] [address] [id number] [place] [address]- 0099 Jun, [facility] [address] [id number] [place] [address]- 8221 Jan, [facility] [place] [facility] [address] [id number] [place] [address]- 8237 Jan, [facility] [place] [facility] [address] [id number] [place] [address]- 2838 Jan, [facility] [address] [id number] [place] [address]- 5395 Jan, [facility] [address] [id number], [place] [address]367 Dec, [facility] [id number], [place] [address] 2546 Dec, [facility] [id number], [place] [address] 2546 Dec, [facility] [id number], [place] [address]- 2546 Nov, [facility] [id number], [place] [address] 2543 July, [facility] [id number], [place] [address] 2546 May, [facility] [id number], [place] [address] 2546 Apr, [facility] [id number], [place] [address] 2546 Feb, [facility] [address] [id number], [place] [address] 238[address] Dec, IMMUNIZATIONS No Known Immunizations SOCIAL HISTORY Never Assessed REASON FOR VISIT PALS IN-Novolog PLAN OF CARE VITAL SIGNS MEDICATIONS Unknown [...]
--- OUTSIDE RECORDS SUMMARY | 2018-06-14 14:42 | XMS REPORT ---
Author Author [facility] Address [address] [place] [address] Care Team Providers Care Junior Web Developer Name Role Phone BEVER[facility] Unavailable PROBLEMS Type Condition ICD9-CM Code EBQ71-SY Code Onset Dates Condition Status SNOMED Code Problem Lumbar radiculopathy M54.16 Active 198293214 Problem intermediate current 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 Z79.891 Active 470483029 Problem Bipolar 1 disorder F31.9 Active 557625503 Problem Type 2 diabetes mellitus with hyperglycemia E11.65 Active 74965404 Problem long term current use of insulin Z79.4 Active 411553001 Problem Hyperlipidemia, unspecified E78.5 Active 25489142 Problem Type 2 diabetes mellitus with complication E11.8 Active 220990135 Problem New daily persistent headache G44.52 Active 419236081 Problem Acute bilateral low back pain with right-sided sciatica M54.41 Active 470843027 Problem Obesity, unspecified 278.00 Active 584857301 Problem Hyperlipidemia 272.4 Active 36276522 Problem Post laminectomy syndrome M96.1 Active 92532024 Problem Eye exam normal Z01.00 Active 961167904 Problem 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 Active 34958029 Problem Non compliance with medical treatment Z91.19 Active 4496111 Problem Bipolar disorder, in partial remission, most recent episode manic F31.73 Active 96877422 Problem Diabetes E11.9 Active 364198753 Problem Extreme poverty Z59.5 Active 93335327 Problem Irritable bowel syndrome with diarrhea K58.0 Active [id number] ALLERGIES No Information ENCOUNTERS Encounter Location Date Diagnosis [facility] [address] [address] Nov, [facility] [address] [address] Nov, [facility] [address] [id number] [place] [address] 80034- 9390 Nov, [facility] [id number] [place] [address] 24228- 5710 Nov, [facility] [address] [id number] [place] [address] 33947- 6389 Oct, Bipolar 1 disorder F31.9 ; 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 and Extreme poverty Z59.5 [place] [address] [address]29- 8939 Oct, Type 2 diabetes mellitus with hyperglycemia E11.65 ; long term current use of insulin Z79.4 and Other acute gastritis without hemorrhage K29.00 [facility] [id number] [place] [address] 46219- 2808 Oct, Bipolar 1 disorder F31.9 ; 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 and Extreme poverty Z59.5 [facility] [id number] [place] [address] 41885- 3427 Sep, Diarrhea, unspecified R19.7 and Vomiting, unspecified R11.10 [facility] [address] [id number] [place] [address] 17852- 2287 Aug, Type 2 diabetes mellitus with complication E11.8 [facility] [id number] [place] [address] 79345- 4548 Aug, [facility] [id number] [place] [address] 15823- 6148 Aug, Bipolar 1 disorder F31.9 ; 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 and Extreme poverty Z59.5 [facility] [id number] [place] [address] 56500- 2588 Aug, 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 and Bipolar disorder, in partial remission, most recent episode manic F31.73 [facility] [id number] [place] [address] 55817- 5337 Aug, Bipolar 1 disorder F31.9 [facility] [address], [place] [address] Aug, [facility] [id number] [place] [address] 76938- 5451 Aug, [facility] [id number] [place] [address] 27068- 2019 Aug, Bipolar 1 disorder F31.9 ; 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 and Extreme poverty Z59.5 [facility] [id number] [place] [address] 53896- 5981 July, Type 2 diabetes mellitus with complication E11.8 [facility] [id number] [place] [address] 31138- 5100 July, Bipolar 1 disorder F31.9 ; 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 and Extreme poverty Z59.5 [facility] [id number] [place] [address] 62765- 5775 Jun, Bipolar 1 disorder F31.9 ; 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 and Extreme poverty Z59.5 [place] [address] [place] [address] 06736- 3047 Jun, Bipolar 1 disorder F31.9 ; 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 and Extreme poverty Z59.5 [facility] [address] [place] [address] 39643- 7036 Jun, Bipolar 1 disorder F31.9 ; 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 and Extreme poverty Z59.5 [facility] [address] [place] [address] 90471- 5044 May, Urinary tract infection without hematuria, site unspecified N39.0 [facility] [id number] [place] [address] 36602- 3250 May, Bipolar 1 disorder F31.9 ; 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 and Extreme poverty Z59.5 [place] [address] [place] [address] 14519- 3982 Apr, Diabetes E11.9 and Breast cancer screening Z12.31 [facility] [id number] [place] [address] 04374- 9989 Apr, Bipolar 1 disorder F31.9 and 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 [facility] [id number] [place] [address] 22645- 0689 Mar, Bipolar 1 disorder F31.9 ; 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 and Extreme poverty Z59.5 [facility] [address] 17501- 0682 Mar, New daily persistent headache G44.52 ; Leg pain 729.5 and History of carpal tunnel release Z98.890 [facility] [id number] [place] [address] 97201- 1476 Mar, Hyperlipidemia, unspecified E78.5 [facility] [place] [address] 18007- 1441 Mar, Bipolar 1 disorder F31.9 ; 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 and Extreme poverty Z59.5 [facility] [address] 42631- 9130 Feb, Bipolar 1 disorder F31.9 ; 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 and Extreme poverty Z59.5 [facility] [id number] [place] [address] 69920- 0595 Feb, Diabetes E11.9 [facility] [address] 12962- 6197 Feb, Viral syndrome B34.[address] 71832- 3060 Jan, Other viral agents as the cause of diseases classified elsewhere B97.89 and Acute upper respiratory infection, unspecified J06.9 [facility] [id number] [place] [address] 62558- 7495 Jan, Bipolar 1 disorder F31.9 and 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 [facility] [id number] [place] [address] 75548- 7545 Jan, Bipolar 1 disorder F31.9 ; 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 and Extreme poverty Z59.5 [facility] [id number] [place] [address] 78656- 9816 Dec, Diabetes E11.9 [facility] [address] 989702- 3932 Dec, Diabetes E11.9 and Encounter for immunization Z23 [facility] [id number] [place] [address] 33754- 2462 Dec, Bipolar 1 disorder F31.9 ; 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 and Extreme poverty Z59.5 [facility] [id number] [place] [address] 81948- 7847 Dec, Back pain M54.9 [facility] [id number] [place] [address] 89740- 3722 07 Nov, 2016 [facility] [id number] [place] [address] 40856- 9713 Nov, Bipolar 1 disorder F31.9 ; 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 and Extreme poverty Z59.5 [facility] [id number] [place] [address] 05266- 1859 Nov, Bipolar 1 disorder F31.9 ; 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 and Extreme poverty Z59.5 [facility] [address] [place] [address] 66151- 4946 Oct, 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 and Bipolar 1 disorder F31.9 [facility] [id number] [place] [address] 23622- 5391 Oct, Bipolar 1 disorder F31.9 ; 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 and Extreme poverty Z59.5 [facility] [id number] [place] [address] 36467- 2076 Oct, Back pain M54.9 [facility] [address] [place] [address] 50050- 4289 Oct, 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 and Type 2 diabetes mellitus with complication E11.8 [facility] [id number] [place] [address] 03749- 8322 Sep, Bipolar 1 disorder F31.9 ; 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 and Extreme poverty Z59.5 [facility] [id number] [place] [address] 61770- 6031 Sep, 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 and Bipolar 1 disorder F31.9 [facility] [id number] [place] [address] 62582- 5688 Sep, Bipolar 1 disorder F31.9 ; 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 and Extreme poverty Z59.5 [facility] [id number] [place] [address] 59277- 2572 Aug, Diabetes E11.9 ; Hyperlipidemia, unspecified E78.5 and Lumbar radiculopathy M54.16 [facility] [id number] [place] [address] 29385- 8413 Aug, Bipolar 1 disorder F31.9 ; 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 and Extreme poverty Z59.5 [facility] [id number] [place] [address] 92511- 6527 Aug, [facility] [id number] [place] [address] 68994- 8357 Aug, [facility] [id number] [place] [address] 40857- 2103 Aug, [facility] [id number] [place] [address] 57123- 0442 July, [facility] [id number] [place] [address] 70591- 4155 July, Acute bilateral low back pain with right-sided sciatica M54.41 [facility] [address], [place] [address] 8049 July, Bipolar 1 disorder F31.9 ; 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 and Extreme poverty Z59.5 [facility] [id number] [place] [address] 68691- 7160 July, Back pain M54.9 and Diabetes E11.9 [facility] [id number] [place] [address] 15946- 0036 Jun, Bipolar 1 disorder F31.9 ; 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 and Extreme poverty Z59.5 [facility] [id number] [place] [address] 49721- 9173 Jun, Bipolar 1 disorder F31.9 ; 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 and Extreme poverty Z59.5 [facility] [id number] [place] [address] 17790- 2450 May, Visit for pelvic exam Z01.419 ; Acute vaginitis N76.0 and Diabetes E11.9 [facility] [id number] [place] [address] 01047- 9199 May, Bipolar 1 disorder F31.9 ; 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 and Extreme poverty Z59.5 [facility] [place] [address] [place] [address] 98045- 8835 May, [facility] [id number] [place] [address] 48946- 1735 May, [facility] [id number] [place] [address] 11018- 9633 May, Bipolar 1 disorder F31.9 ; 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 and Extreme poverty Z59.5 [place] [address] [place] [address] 27313- 4795 May, Hyperlipidemia, unspecified E78.5 [facility] [address] [place] [address] 15164- 9013 Apr, Breast cancer screening Z12.39 [facility] [id number] [place] [address] 50704- 2537 Mar, [facility] [id number] [place] [address] 05237- 5437 Mar, Bipolar disorder, current episode mixed, unspecified F31.60 [facility] [id number] [place] [address] 67283- 6465 Mar, Bipolar 1 disorder F31.9 ; 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 and Extreme poverty Z59.5 [facility] [id number] [place] [address] 06003- 6704 Feb, Acute nasopharyngitis J00 [place] [address] 38776- 8918 27 Feb, 2016 Dental examination Z01.20 [facility] [address] 28877- 4512 21 Feb, 2016 Dental cavities K02.9 and Chronic periodontitis, unspecified K05.30 [facility] [id number] [place] [address] 31262- 6225 13 Feb, 2016 Low back pain M54.5 and Extreme poverty Z59.5 [facility] [id number] [place] [address] 47210- 6910 Feb, [facility] [id number] [place] [address] 34760- 2560 05 Feb, 2016 Routine gynecological examination V72.31 ; Breast cancer screening Z12.39 and Herpes simplex type 1 infection B00.9 [facility] [id number] [place] [address] 69114- 2444 Feb, Diabetes E11.9 [facility] [id number] [place] [address] 45370- 2179 Feb, Encounter for dental examination and cleaning without abnormal findings Z01.20 [facility] [address] 25551- 0659 Jan, Hyperlipidemia, unspecified E78.5 [facility] [id number] [place] [address] 57630- 2258 Jan, Bipolar 1 disorder F31.9 ; 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 and Extreme poverty Z59.5 [facility] [id number] [place] [address] 93271- 5664 Jan, Diabetes E11.9 [facility] [address] 331140- 7197 17 Jan, 2016 Diabetes E11.9 [facility] [id number] [place] [address] 40058- 8147 14 Dec, 2015 Bipolar 1 disorder F31.9 ; 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 and Extreme poverty Z59.5 [facility] [id number] [place] [address] 05774- 1167 13 Dec, 2015 Bipolar disorder, current episode mixed, unspecified F31.60 and 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 [facility] [id number] [place] [address] 01473- 2413 16 Nov, 2015 Bipolar 1 disorder F31.9 ; 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 ; Extreme poverty Z59.5 and Non compliance with medical treatment Z91.19 [facility] [id number] [place] [address] 88588- 5506 Oct, [facility] [id number] [place] [address] 34642- 2938 Oct, Dental caries K02.9 [facility] [id number] [place] [address] 34837- 2324 Oct, Low back pain M54.5 and Other chronic pain G89.29 [facility] [id number] [place] [address] 25967- 0443 Oct, Bipolar 1 disorder F31.9 ; 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 ; Extreme poverty Z59.5 and Non compliance with medical treatment Z91.19 [place] [address] [place] [address]- 1313 Oct, [facility] [id number] [place] [address] 64717- 7605 Oct, [facility] [id number] [place] [address] 98413- 4912 Oct, Dental examination Z01.20 [facility] [id number] [place] [address] 07241- 1301 Oct, Bipolar 1 disorder F31.9 ; 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 ; Extreme poverty Z59.5 and Non compliance with medical treatment Z91.19 [facility] [id number] [place] [address] 54795- 4791 Oct, [facility] [id number] [place] [address] 28603- 6817 Sep, Type 2 diabetes mellitus with complication E11.8 [facility] [id number] [place] [address] 96311- 4538 Sep, Bipolar disorder, current episode mixed, unspecified F31.60 [facility] [id number] [place] [address] 40821- 5432 Sep, Bipolar disorder, current episode mixed, unspecified F31.60 [facility] [place] [address] [place] [address] 69301- 0462 Sep, Bipolar disorder, in partial remission, most recent episode manic F31.73 ; 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 ; Extreme poverty Z59.5 and Non compliance with medical treatment Z91.19 [place] [address] [place] [address] 10432- 0983 Aug, Bipolar disorder, in partial remission, most recent episode manic F31.73 ; 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 ; Extreme poverty Z59.5 and Non compliance with medical treatment Z91.19 [facility] [address] [place] [address] 23997- 0823 Aug, Bipolar disorder, in partial remission, most recent episode manic F31.73 ; 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 ; Extreme poverty Z59.5 and Non compliance with medical treatment Z91.19 [place] [address] [place] [address] 71828- 8797 Aug, [facility] [id number] [place] [address] 26655- 7347 July, Bipolar disorder, in partial remission, most recent episode manic F31.73 ; 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 ; Extreme poverty Z59.5 and Non compliance with medical treatment Z91.19 [facility] [id number] [place] [address] 01870- 5275 July, Bipolar disorder, current episode mixed, unspecified F31.60 [facility] [id number] [place] [address] 03696- 9428 July, Bipolar disorder, in partial remission, most recent episode manic F31.73 ; 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 ; Extreme poverty Z59.5 and Non compliance with medical treatment Z91.19 [facility] [id number] [place] [address] 74030- 4017 July, intermediate current 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 Z79.891 and Chronic pain G89.29 [facility] [id number] [place] [address] 02551- 2069 Jun, long term current 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 Z79.891 and Bipolar 1 disorder F31.9 [facility] [place] [address] [place] [address] 76609- 8439 Jun, [facility] [id number] [place] [address] 22379- 1450 Jun, [facility] [id number] [place] [address] 14486- 5374 Jun, [facility] [id number] [place] [address] 23815- 5672 Jun, Bipolar disorder, in partial remission, most recent episode manic F31.73 ; 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 and Non compliance with medical treatment Z91.19 [place] [address] [place] [address] 70329- 0588 May, Bipolar disorder, in partial remission, most recent episode manic F31.73 ; 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 and Non compliance with medical treatment Z91.19 [facility] [id number] [place] [address] 07596- 9429 May, Bipolar disorder, in partial remission, most recent episode manic F31.73 [facility] [id number] [place] [address] 44571- 2969 May, Diabetes E11.9 and Chronic pain G89.29 [facility] [id number] [place] [address] 15613- 2213 May, [facility] [id number] [place] [address] 61474- 4922 May, Bipolar disorder, in partial remission, most recent episode manic F31.73 ; Non compliance with medical treatment Z91.19 and 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 [facility] [place] [address] [place] [address] 46100- 4533 May, Type 2 diabetes mellitus with complication E11.8 and Back pain M54.9 [facility] [address] [place] [address] 32247- 8645 May, Bipolar disorder, in partial remission, most recent episode manic F31.73 and 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 [facility] [address] [place] [address] 78168- 7943 Apr, [facility] [id number] [place] [address] 78560- 5819 Apr, [facility] [address] [place] [address] 95027- 7860 Apr, [facility] [id number] [place] [address] 07383- 6347 09 Apr, 2015 Diabetes E11.9 ; Irritable bowel syndrome with diarrhea K58.0 and Lumbar radiculopathy M54.16 [facility] [id number] [place] [address] 94592- 5133 02 Apr, 2015 Breast screening Z12.[address] 30242- 9952 02 Apr, 2015 Bipolar disorder, in partial remission, most recent episode manic F31.73 ; Non compliance with medical treatment Z91.19 and 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 [place] [address]- 3193 Mar, Edema, unspecified type R60.9 and Type 2 diabetes mellitus with complication E11.[address] 34893- 9003 Mar, Bipolar disorder, in partial remission, most recent episode manic F31.73 ; Non compliance with medical treatment Z91.19 ; 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 and Extreme poverty Z59.5 [place] [id number] [place] [address] 15259- 0683 Mar, Bipolar disorder, current episode mixed, unspecified F31.60 ; 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 ; Extreme poverty Z59.5 and Generalized anxiety disorder F41.1 [place] [id number] [place] [address] 23061- 0249 Mar, Bipolar disorder, in partial remission, most recent episode manic F31.73 ; 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 and Extreme poverty Z59.5 [place] [id number] [place] [address] 72903- 6809 Feb, Bipolar disorder, in partial remission, most recent episode manic F31.73 ; 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 and Extreme poverty Z59.[address] 97969- 2815 Feb, Bipolar disorder, in partial remission, most recent episode manic F31.73 ; 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 and Extreme poverty Z59.5 [facility] [id number] [place] [address] 31911- 7610 Feb, [facility] [id number] [place] [address] 17087- 1357 Jan, Type 2 diabetes mellitus with complication E11.8 and Petechiae R23.3 [facility] [address] 33818- 6767 Jan, Type 2 diabetes mellitus with complication E11.8 ; Edema, unspecified R60.9 ; Petechiae R23.3 and Diabetes E11.9 [facility] [id number] [place] [address] 94417- 8382 Jan, Bipolar disorder, in partial remission, most recent episode manic F31.73 ; 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 and Extreme poverty Z59.5 [facility] [id number] [place] [address] 93781- 4619 Jan, Bipolar disorder, in partial remission, most recent episode manic F31.73 ; 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 and Extreme poverty Z59.5 [facility] [id number] [place] [address] 56090- 0949 Dec, Bipolar disorder, in partial remission, most recent episode manic F31.73 [facility] [id number] [place] [address] 05121- 0698 Dec, Edema, due to unspecified malnutrition type, unspecified edema R60.9 and Essential hypertension I[address] [place] [address] [place] 490935- 6742 Dec, Bipolar disorder, in partial remission, most recent episode manic F31.73 [place] [address] [place] [place] [id number] [place] [address] 99817- 4672 Nov, Bipolar I disorder, most recent episode (or current) mixed, unspecified 296.60 [facility] [id number] [address] 1587 Nov, Stress incontinence, female 625.6 ; Back pain 724.5 and Leg pain 729.5 [facility] [id number], [place] [address] 5276 Nov, Generalized anxiety disorder 300.02 and Bipolar II disorder 296.89 [facility] [id number] [place] [address] 32792- 3658 Nov, Bipolar I disorder, most recent episode (or current) mixed, unspecified 296.60 [facility] [id number] [place] [address] 78240- 3267 Oct, [facility] [id number] [place] [address] 19775- 3766 Oct, [facility] [id number] [place] [address] 68740- 4490 Oct, [facility] [id number] [place] [address] 18792- 2529 Oct, Bipolar I disorder, most recent episode (or current) mixed, unspecified 296.60 [facility] [id number], [place] [address] 4351 Sep, Diabetes 250.00 [facility] [id number] [place] [address] 83150- 5203 Sep, Bipolar I disorder, most recent episode (or current) mixed, unspecified 296.60 [facility] [address], [place] [address] 4330 Sep, [facility] [id number] [address] 0361 Sep, [facility] [id number], [place] [address]- 2878 Sep, Bipolar I disorder, most recent episode (or current) mixed, unspecified 296.60 [facility] [address], [place] [address]- 2714 Sep, Bipolar I disorder, most recent episode (or current) mixed, unspecified 296.60 [facility] [address] 8039 Sep, [facility] [id number] [place] [address] 059754- 6950 Sep, Anxiety 300.00 ; Diabetes 250.00 and Hyperlipidemia 272.4 [facility] [id number] [place] [address] 35954- 5475 Aug, [facility] [id number] [place] [address] 25853- 9679 Aug, [facility] [id number] [place] [address] 13569- 7883 Aug, [facility] [id number] [place] [address] 58147- 6797 Aug, Bipolar I disorder, most recent episode (or current) mixed, unspecified 296.60 [facility] [id number] [place] [address] 49415- 2648 Aug, Generalized anxiety disorder 300.02 and Bipolar II disorder 296.89 [facility] [address], [place] [address]- 9890 July, Bipolar I disorder, most recent episode (or current) mixed, unspecified 296.60 [facility] [address], [place] [address]- 4998 July, Cough 786.2 [facility] [id number] [place] [address] 57881- 6789 July, Bipolar I disorder, most recent episode (or current) mixed, unspecified 296.60 [facility] [address], [place] [address]- 2830 Jun, Diabetes 250.00 [facility] [id number] [place] [address]- 8511 14 Jun, 2014 [facility] [place] [facility] [address] [id number] [place] [address]- 5312 13 Jun, 2014 [facility] [place] [facility] [address] [id number] [place] [address]- 8577 24 May, 2014 [facility] [place] [facility] [address] [id number] [place] [address]- 9262 24 May, 2014 [facility] [place] [facility] [address] [id number] [place] [address]- 9336 10 May, 2014 [facility] [place] [facility] [address] [id number] [place] [address]- 8989 10 May, 2014 [facility] [place] [facility] [address] [facility] [id number] [place] [address]- 8112 10 May, 2014 [facility] [place] [facility] [address] [facility] [id number] [place] [address]- 5524 10 May, 2014 [facility] [place] [facility] [address] [facility] [id number] [place] [address]- 9079 20 Apr, 2014 [facility] [place] [facility] [address] [facility] [id number] [place] [address]- 9868 20 Apr, 2014 [facility] [place] [facility] [address] [facility] [id number] [place] [address]- 2599 11 Apr, 2014 [facility] [place] [facility] [address] [facility] [id number] [place] [address]- 8942 11 Apr, 2014 [facility] [place] [facility] [address] [facility] [id number] [place] [address]- 2545 10 Apr, 2014 [facility] [place] [facility] [address] [id number] [place] [address]- 5674 10 Apr, 2014 [facility] [place] [facility] [address] [facility] [id number] [place] 5054 05 Apr, 2014 [facility] [place] [facility] [address] [facility] [id number] [place] [address]- 6403 Apr, [facility] [place] [facility] [address] [id number] [place] [address]- 8173 Mar, [facility] [place] [facility] [address] [id number] [place] [address]- 8377 Mar, [facility] [place] [facility] [address] [id number] [place] [address]- 9068 Mar, [facility] [place] [facility] [address] [id number] [place] [address]- 2963 Mar, [facility] [place] [facility] [address] [id number] [place] [address]- 0769 Mar, [facility] [place] [facility] [address] [id number] [place] [address]- 5434 Mar, [facility] [place] [facility] [address] [id number] [place] [address]- 9810 Mar, [facility] [place] [facility] [address] [id number] [place] [address]- 3663 Mar, [facility] [place] [facility] [address] [id number] [place] [address]- 9227 Feb, [facility] [place] [facility] [address] [id number] [place] [address]- 1897 Feb, [facility] [place] [facility] [address] [id number] [place] [address]- 5887 Feb, [facility] [place] [facility] [address] [id number] [place] [address]- 4316 Feb, [facility] [place] [facility] [address] [id number] [place] [address]- 6375 Feb, [facility] [place] [facility] [address] [id number] [place] [address]- 1287 Feb, [facility] [place] [facility] [address] [id number] [place] [address]- 4920 Feb, [facility] [place] [facility] [address] [id number] [place] [address]- 3184 Feb, [facility] [place] [facility] [address] [id number] [place] [address]- 4241 Feb, [facility] [place] [facility] [address] [id number] [place] [address]- 5119 Feb, [facility] [place] [facility] [address] [id number] [place] [address]- 8870 Jan, [facility] [place] [facility] [address] [id number] [place] [address]- 2105 Jan, [facility] [place] [facility] [address] [id number] [place] [address]- 3214 Jan, [facility] [place] [facility] [address] [id number] [place] [address]- 2202 Jan, [facility] [place] [facility] [address] [id number] [place] [address]- 6021 Jan, [facility] [place] [facility] [address] [id number] [place] [address]- 5915 Jan, [facility] [place] [facility] [address] [id number] [place] [address]- 6577 Jan, [facility] [place] [facility] [address] [id number] [place] [address]- 9631 Jan, [facility] [place] [facility] [address] [id number] [place] [address]- 0684 Jan, [facility] [place] [facility] [address] [id number] [place] [address]- 5414 Jan, [facility] [place] [facility] [address] [id number] [place] [address]- 9724 Jan, [facility] [place] [facility] [address] [id number] [place] [address]- 9706 Jan, [facility] [place] [facility] [address] [id number] [place] [address]- 2560 Jan, [facility] [place] [facility] [address] [id number] [place] [address]- 8246 Jan, [facility] [place] [facility] [address] [id number] [place] [address]- 9749 Jan, [facility] [place] [facility] [address] [id number] [place] [address]- 0660 Dec, [facility] [place] [facility] [address] [id number] [place] [address]- 7492 Dec, [facility] [place] [facility] [address] [id number] [place] 8020 Dec, [facility] [place] [facility] [address] [id number] [place] [address]- 7429 Dec, [facility] [place] [facility] [address] [id number] [place] [address]- 4685 Dec, [facility] [place] [facility] [address] [id number] [place] [address]- 1061 Dec, [facility] [place] [facility] [address] [id number] [place] [address]- 9536 Dec, [facility] [place] [facility] [address] [id number], [place] [address]- 0655 Dec, [facility] [place] [facility] [address] [id number], [place] [address]- 0221 Nov, [facility] [place] [facility] [address] [id number], [place] [address]- 2010 25 Nov, 2013 [facility] [place] [facility] [address] [id number] [place] [address]- 9327 10 Nov, 2013 [facility] [place] [facility] [address] [id number] [place] [address]- 4536 10 Nov, 2013 [facility] [place] [facility] [address] [id number], [place] [address]- 1538 08 Nov, 2013 [facility] [place] [facility] [address] [id number], [place] [address]- 4215 08 Nov, 2013 [facility] [place] [facility] [address] [id number] [place] [address]- 8658 08 Nov, 2013 [facility] [place] [facility] [address] [id number] [place] [address]- 8632 08 Nov, 2013 [facility] [place] [facility] [address] [id number] [place] [address]- 5890 08 Nov, 2013 [facility] [place] [facility] [address] [id number] [place] [address]- 7137 08 Nov, 2013 [facility] [place] [facility] [address] [id number] [place] [address]- 0240 Nov, 2013 [facility] [place] [facility] [address] [id number] [place] [address]- 3306 Nov, 2013 [facility] [place] [facility] [address] [id number] [place] [address]- 5456 Nov, 2013 [facility] [place] [facility] [address] [id number] [place] [address]- 8433 Nov, 2013 [facility] [place] [facility] [address] [id number] [place] [address]- 6993 Nov, 2013 [facility] [place] [facility] [address] [id number] [place] [address]- 2636 Oct, [facility] [place] [facility] [address] [id number] [place] [address]- 6415 Oct, [facility] [place] [facility] [address] [id number] [place] [address]- 2309 Oct, [facility] [place] [facility] [address] [id number] [place] [address]- 7337 Oct, [facility] [place] [facility] [address] [id number] [place] [address]- 9057 Oct, [facility] [place] [facility] [address] [id number] [place] [address]- 5729 Oct, [facility] [place] [facility] [address] [id number] [place] [address]- 1978 Oct, [facility] [place] [facility] [address] [id number] [place] [address]- 9929 Oct, [facility] [place] [facility] [address] [id number] [place] [address]- 3008 Oct, [facility] [place] [facility] [address] [id number] [place] [address]- 8205 Oct, [facility] [place] [facility] [address] [id number] [place] [address]- 6426 Oct, [facility] [place] [facility] [address] [id number] [place] [address]- 1602 Oct, [facility] [place] [facility] [address] [id number] [place] [address]- 2628 Oct, [facility] [place] [facility] [address] [id number] [place] [address]- 1583 Oct, [facility] [place] [facility] [address] [id number] [place] [address]- 6937 Sep, [facility] [place] [facility] [address] [id number] [place] [address]- 0816 Sep, [facility] [place] [facility] [address] [id number] [place] [address]- 4703 Sep, [facility] [place] [facility] [address] [id number] [place] [address]- 0116 Sep, [facility] [place] [facility] [address] [id number] [place] [address]- 4921 Sep, [facility] [place] [facility] [address] [id number] [place] [address]- 1814 Sep, [facility] [place] [facility] [address] [id number] [place] [address]- 1369 Sep, [facility] [place] [facility] [address] [id number] [place] [address]- 2231 Sep, [facility] [place] [facility] [address] [id number] [place] [address]- 6244 Aug, [facility] [place] [facility] [address] [id number] [place] [address]- 4299 Aug, [facility] [place] [facility] [address] [id number] [place] [address]- 9129 Aug, [facility] [place] [facility] [address] [id number] [place] [address]- 4232 Aug, [facility] [place] [facility] [address] [id number] [place] [address]- 3995 Aug, [facility] [place] [facility] [address] [id number] [place] [address]- 6042 Aug, [facility] [place] [facility] [address] [id number] [place] [address]- 7275 Aug, [facility] [place] [facility] [address] [id number] [place] [address]- 5751 Aug, [facility] [place] [facility] [address] [id number] [place] [address]- 4597 July, [facility] [place] [facility] [address] [id number] [place] [address]- 5407 July, [facility] [place] [facility] [address] [id number] [place] [address]- 4282 July, [facility] [place] [facility] [address] [id number] [place] [address]- 8080 July, [facility] [place] [facility] [address] [id number] [place] [address]- 4469 July, [facility] [place] [facility] [address] [id number] [place] [address]- 3509 July, [facility] [place] [facility] [address] [id number] [place] [address]- 3558 July, [facility] [place] [facility] [address] [id number] [place] [address]- 7826 July, [facility] [place] [facility] [address] [id number] [place] [address]- 5024 Jun, [facility] [place] [facility] [address] [id number] [place] [address]- 1297 Jun, [facility] [place] [facility] [address] [id number] [place] [address]- 4016 Jun, [facility] [place] [facility] [address] [id number] [place] [address]- 9130 Jun, [facility] [place] [facility] [address] [id number] [place] [address]- 4929 Jun, [facility] [place] [facility] [address] [id number] [place] [address]- 2289 Jun, [facility] [place] [facility] [address] [id number] [place] [address]- 6497 Jun, [facility] [place] [facility] [address] [id number] [place] [address]- 5260 Jun, [facility] [place] [facility] [address] [id number] [place] [address]- 6425 Jun, [facility] [place] [facility] [address] [id number] [place] [address]- 8389 Jun, [facility] [place] [facility] [address] [id number] [place] [address]- 5617 Jun, [facility] [place] [facility] [address] [id number] [place] [address]- 7909 Jun, [facility] [place] [facility] [address] [id number] [place] [address]- 6936 May, [facility] [place] [facility] [address] [id number] [place] [address]- 0942 May, [facility] [place] [facility] [address] [id number] [place] [address]- 2089 May, [facility] [place] [facility] [address] [id number] [place] [address]- 8365 26 May, 2013 [facility] [place] [facility] [address] [id number] [place] [address]- 0933 13 May, 2013 [facility] [place] [facility] [address] [id number] [place] [address]- 6545 13 May, 2013 [facility] [place] [facility] [address] [id number] [place] [address]- 9165 12 May, 2013 [facility] [place] [facility] [address] [id number] [place] [address]- 4257 12 May, 2013 [facility] [place] [facility] [address] [id number] [place] [address]- 6433 11 May, 2013 [facility] [place] [facility] [address] [id number] [place] [address]- 7205 11 May, 2013 [facility] [place] [facility] [address] [id number] [place] [address]- 4006 11 May, 2013 [facility] [place] [facility] [address] [id number] [place] [address]- 8724 11 May, 2013 [facility] [place] [facility] [address] [id number] [place] [address]- 9457 10 May, 2013 [facility] [place] [facility] [address] [id number] [place] [address]- 2414 May, [facility] [place] [facility] [address] [id number] [place] [address]- 1672 Apr, [facility] [place] [facility] [address] [id number] [place] [address]- 8023 Apr, [facility] [place] [facility] [address] [id number] [place] [address]- 4179 Apr, [facility] [place] [facility] [address] [id number] [place] [address]- 9977 Apr, [facility] [place] [facility] [address] [id number], [place] [address]- 3758 Apr, [facility] [facility] [address] [id number] [place] [address]- 7509 Apr, [facility] [place] [facility] [address] [id number] [place] [address]- 2049 Mar, [facility] [place] [facility] [address] [id number] [place] [address]- 3082 Mar, [facility] [place] [facility] [address] [id number] [place] [address]- 4897 Mar, [facility] [place] [facility] [address] [id number] [place] [address]- 2931 Mar, [facility] [place] [facility] [address] [id number] [place] [address]- 6052 Mar, [facility] [address] [id number] [place] [address]- 8803 Mar, [facility] [place] [facility] [address] [id number] [place] [address]- 8778 Mar, [facility] [place] [facility] [address] [id number] [place] [address]- 5224 Mar, [facility] [place] [facility] [address] [id number] [place] [address]- 6362 Mar, [facility] [place] [facility] [address] [id number] [place] [address]- 4434 Mar, [facility] [place] [facility] [address] [id number], [place] [address]- 9396 Mar, [facility] [place] [facility] [address] [id number] [place] [address]- 2639 Mar, [facility] [place] [facility] [address] [id number] [place] [address]- 7040 Mar, [facility] [place] [facility] [address] [id number] [place] [address]- 6192 Mar, [facility] [place] [facility] [address] [id number] [place] [address]- 6092 Feb, 2012 [facility] [place] [facility] [address] [id number] [place] [address]- 1665 Feb, [facility] [place] [facility] [address] [id number] [place] [address]- 6631 Feb, [facility] [place] [facility] [address] [id number] [place] [address]- 9067 Feb, [facility] [place] [facility] [address] [id number] [place] [address]- 4269 Feb, [facility] [place] [facility] [address] [id number] [place] [address]- 8226 Feb, [facility] [place] [facility] [address] [id number] [place] 1725 Feb, [facility] [place] [facility] [address] [id number] [place] [address]- 0798 Feb, [facility] [place] [facility] [address] [id number] [place] [address]- 8699 Feb, [facility] [place] [facility] [address] [id number] [place] [address]- 1228 Feb, [facility] [place] [facility] [address] [id number] [place] [address]- 7833 Feb, [facility] [place] [facility] [address] [id number] [place] [address]- 3946 Feb, [facility] [place] [facility] [address] [id number] [place] [address]- 0719 Feb, [facility] [place] [facility] [address] [id number] [place] [address]- 8036 Feb, [facility] [place] [facility] [address] [id number] [place] [address] Feb, [facility] [place] [facility] [address] [id number] [place] [address] 05 Feb, 2012 [facility] [place] [facility] [address] [id number] [place] [address] 24 Dec, 2012 [facility] [place] [facility] [address] [id number] [place] [address] 24 Dec, 2012 [facility] [place] [facility] [address] [id number] [place] [address] 16 Dec, 2012 [facility] [place] [facility] [address] [id number] [place] [address] 16 Dec, 2012 [facility] [place] [facility] [address] [id number] [place] [address] 16 Dec, 2012 [facility] [place] [facility] [address] [id number] [place] [address] 16 Dec, 2012 [facility] [place] [facility] [address] [id number] [place] [address] 2821 14 Dec, 2012 [facility] [place] [facility] [address] [id number], [place] [address] 14 Dec, 2012 [facility] [place] [facility] [address] [id number], [place] [address] 10 Dec, 2012 [facility] [place] [facility] [address] [id number], [place] [address] 10 Dec, 2012 [facility] [place] [facility] [address] [id number], [place] [address] 10 Dec, 2012 [facility] [place] [facility] [address] [id number], [place] [address] 10 Dec, 2012 [facility] [place] [facility] [address] [id number], [place] [address] 03 Dec, 2012 [facility] [place] [facility] [address] [id number], [place] [address] 25 Nov, 2012 [facility] [place] [facility] [address] [id number], [place] [address] 20 Nov, 2012 [facility] [place] [facility] [address] [id number] [place] [address] 18 Nov, 2012 [facility] [address] [id number] [place] [address] 8670 16 Nov, 2012 [facility] [place] [facility] [address] [id number] [place] [address] 2036 12 Nov, 2012 [facility] [place] [facility] [address] [id number] [place] [address] 0774 11 Nov, 2012 [facility] [place] [facility] [address] [id number] [place] [address] 2543 05 Nov, 2012 [facility] [place] [facility] [address] [id number] [place] [address] 7227 15 Oct, 2012 [facility] [place] [facility] [address] [id number] [place] [address]- 6[address] Oct, [facility] [address] [id number] [place] [address]952 24 Sep, 2012 [facility] [address] [id number] [place] [address] 74[address] Sep, [facility] [place] [facility] [address] [id number] [place] [address] Sep, [facility] [place] [facility] [address] [id number] [place] [address] Sep, [facility] [place] [facility] [address] [id number] [place] [address] 1997 15 Sep, 2012 [facility] [place] [facility] [address] [id number] [place] [address] Sep, [facility] [place] [facility] [address] [id number] [place] [address] Sep, [facility] [place] [facility] [address] [id number] [place] [address] 7071 Aug, [facility] [place] [facility] [address] [id number] [place] [address] 1570 Aug, [facility] [place] [facility] [address] [id number] [place] [address] 4106 16 Aug, 2012 [facility] [address] [id number] [place] [address]283 Aug, [facility] [address] [id number] [place] [address] 1301 11 Aug, 2012 [facility] [address] [id number] [place] [address] 9410 Aug, [facility] [address] [id number] [place] [address] Aug, [facility] [address] [id number] [place] [address]097 Aug, [facility] [address] [id number] [place] [address] July, [facility] [address] [id number] [place] [address] July, [facility] [address] [id number] [place] [address] July, [facility] [address] [id number] [place] [id number] July, [facility] [place] [facility] [address] [id number] [place] [address] July, [facility] [address] [id number] [place] [address] Jun, [facility] [place] [facility] [address] [id number] [place] [address] 66[address] May, [facility] [place] [facility] [address] [id number] [place] [address] 7816 14 May, 2012 [facility] [place] [facility] [address] [id number] [place] [address]- [address]386 04 May, 2012 [facility] [place] [facility] [address] [id number] [place] [address] 1346 Apr, [facility] [address] [id number] [place] [address] Apr, [facility] [address] [id number] [place] [address] 1548 Apr, [facility] [address] [id number] [place] [address] Mar, [facility] [address] [id number] [place] [address] 0464 Mar, [facility] [address] [id number] [place] [address] 7385 Mar, [facility] [address] [id number] [place] [address] 4[address] Mar, [facility] [address] [id number] [place] [address]- 3989 Mar, [facility] [address] [id number] [place] [address]- 64[address] Mar, [facility] [address] [id number] [place] [address] Mar, [facility] [address] [id number] [place] [address] Feb, [facility] [address] [id number] [place] [address] 31 Feb, 2012 [facility] [address] [id number] [place] [address] 18 Feb, 2012 [facility] [address] [id number] [place] [address] 18 Feb, 2012 [facility] [place] [facility] [address] [id number] [place] [address] 17 Feb, 2012 [facility] [address] [id number] [place] [address] 7638 17 Feb, 2012 [facility] [place] [facility] [address] [id number] [place] [address] Feb, [facility] [place] [facility] [address] [id number] [place] [address] Feb, [facility] [place] [facility] [address] [id number] [place] [address] Jan, [facility] [place] [facility] [address] [id number] [place] [address] 4[address] Jan, [facility] [place] [facility] [address] [id number] [place] [address] 65[address] Jan, [facility] [place] [facility] [address] [id number] [place] [address] 9666 Jan, [facility] [place] [facility] [address] [id number] [place] [address] 73[address] Jan, [facility] [place] [facility] [address] [id number] [place] [address] 9[address] Jan, [facility] [place] [facility] [address] [id number] [place] [address] 48[address] Jan, [facility] [place] [facility] [address] [id number] [place] [address] 37[address] Jan, [facility] [place] [facility] [address] [id number] [place] [address]269 Jan, [facility] [place] [facility] [address] [id number] [place] [address]958 Jan, [facility] [place] [facility] [address] [id number] [place] [address] 5044 Jan, [facility] [place] [facility] [address] [id number] [place] [address] Jan, [facility] [place] [facility] [address] [id number] [place] [address] 365[address] Jan, [facility] [place] [facility] [address] [id number] [place] [address] 2578 Jan, [facility] [place] [facility] [address] [id number] [place] [address] 140[address] Jan, [facility] [place] [facility] [address] [id number] [place] [address] 4774 Jan, [facility] [place] [facility] [address] [id number] [place] [address] 3481 Dec, [facility] [place] [facility] [address] [id number] [place] [address] 7625 Dec, [facility] [place] [facility] [address] [id number] [place] [address] 0173 Dec, [facility] [place] [facility] [address] [id number] [place] [address] 2548 Dec, [facility] [place] [facility] [address] [id number] [place] [address] 6975 Dec, [facility] [place] [facility] [address] [id number] [place] [address] 5770 Dec, [facility] [place] [facility] [address] [id number] [place] [address]350 Dec, [facility] [place] [facility] [address] [id number] [place] [address] 5187 Dec, [facility] [place] [facility] [address] [id number], [place] [address] Dec, [facility] [place] [facility] [address] [id number][place] [address] 05 Dec, 2011 [facility] [place] [facility] [address] [id number] [place] [address]87 18 Nov, 2011 [facility] [place] [facility] [address] [id number], [place] [address] 13 Nov, 2011 [facility] [place] [facility] [address] [id number] [place] [address] 7486 24 Oct, 2011 [facility] [place] [facility] [address] [id number] [place] [address] 3857 Oct, [facility] [place] [facility] [address] [id number] [place] [address] 5804 Oct, [facility] [place] [facility] [address] [id number] [place] [address] 8343 Oct, [facility] [place] [facility] [address] [id number] [place] [address] 7466 Oct, [facility] [place] [facility] [address] [id number] [place] [address] 9505 Oct, [facility] [place] [facility] [address] [id number] [place] [address] 2790 Oct, [facility] [place] [facility] [address] [id number] [place] [address] Sep, [facility] [place] [facility] [address] [id number] [place] [address] 59[address] Aug, [facility] [place] [facility] [address] [id number] [place] [address] 8116 Aug, [facility] [place] [facility] [address] [id number] [place] [address] 6093 Aug, [facility] [place] [facility] [address] [id number] [place] [address] 2516 Aug, [facility] [place] [facility] [address] [id number] [place] [address] 4912 Aug, [facility] [place] [facility] [address] [id number] [place] [address] 0431 July, [facility] [place] [facility] [address] [id number] [place] [address] 3[address] July, [facility] [place] [facility] [address] [id number] [place] [address] 0202 July, [facility] [place] [facility] [address] [id number] [place] [address] 1702 Jun, [facility] [place] [facility] [address] [id number] [place] [address]- 0980 05 Jun, 2011 [facility] [place] [facility] [address] [id number] [place] [address]156 Jun, [facility] [place] [facility] [address] [id number] [place] [address] 9976 Jun, [facility] [place] [facility] [address] [id number] [place] [address]26 30 May, 2011 [facility] [place] [facility] [address] [id number] [place] [address] 4340 30 May, 2011 [facility] [place] [facility] [address] [id number] [place] [address]- 0427 29 May, 2011 [facility] [place] [facility] [address] [id number] [place] [address] 1990 May, [facility] [place] [facility] [address] [id number] [place] [address] 0070 May, [facility] [place] [facility] [address] [id number] [place] [address] 0802 May, [facility] [place] [facility] [address] [id number] [place] [address]- 0245 May, [facility] [place] [facility] [address] [id number] [place] [address]- 3221 May, [facility] [place] [facility] [address] [id number] [place] [address]- 9222 08 May, 2011 [facility] [place] [facility] [address] [id number] [place] [address]- 8796 05 May, 2011 [facility] [place] [facility] [address] [id number] [place] [address] 3643 May, [facility] [place] [facility] [address] [id number] [place] [address]- 0504 May, [facility] [place] [facility] [address] [id number] [place] [address]- 7573 31 Mar, 2011 [facility] [place] [facility] [address] [id number] [place] [address]- 0992 Mar, [facility] [place] [facility] [address] [id number] [place] [address]- 2918 28 Feb, 2011 [facility] [place] [facility] [address] [id number] [place] [address] Feb, [facility] [place] [facility] [address] [id number] [place] [address]- 0583 20 Feb, 2011 [facility] [place] [facility] [address] [id number] [place] [address]- 3296 15 Feb, 2011 [facility] [place] [facility] [address] [id number] [place] [address]- 7507 13 Feb, 2011 [facility] [place] [facility] [address] [id number] [place] [address]- 5200 Feb, [facility] [place] [facility] [address] [id number] [place] [address]- 2959 Feb, [facility] [place] [facility] [address] [id number] [place] [address]- 4307 Jan, [facility] [place] [facility] [address] [id number] [place] [address]- 3941 Jan, [facility] [place] [facility] [address] [id number] [place] [address]- 1111 Jan, [facility] [place] [facility] [address] [id number], [place] [address]- 8955 17 Jan, 2011 [facility] [place] [facility] [address] [id number] [place] [address]- 4827 07 Jan, 2011 [facility] [place] [facility] [address] [id number] [place] [address]- 1295 03 Jan, 2011 [facility] [place] [facility] [address] [id number] [place] [address]- 3957 27 Dec, 2010 [facility] [place] [facility] [address] [id number] [place] [address]- 0435 27 Dec, 2010 [facility] [address] [id number] [place] [address]- 9958 Dec, [facility] [address] [id number] [place] [address]- 1746 July, [facility] [address] [id number] [place] [address]- 5767 July, [facility] [address] [id number] [place] [address]- 2549 Feb, [facility] [address] [id number] [place] [address]- 0057 Jan, [facility] [address] [id number] [place] [address]- 1235 Dec, [facility] [address] [id number] [place] [address]- 2681 Dec, [facility] [address] [id number] [place] [address]- 6860 15 Sep, 2009 [facility] [address] [id number] [place] [address]- 8118 Aug, [facility] [address] [id number] [place] [address]- 8914 Jun, [facility] [address] [id number] [place] [address]- 9994 Jun, [facility] [address] [id number] [place] [address]- 2779 Jan, [facility] [place] [facility] [address] [id number] [place] [address]- 6204 Jan, [facility] [place] [facility] [address] [id number] [place] [address]- 1868 Jan, [facility] [address] [id number] [place] [address]- 2343 Jan, [facility] [address] [id number], [place] [address] 2769 Dec, [facility] [address] [id number], [place] [address] 2546 Dec, [facility] [address] [id number], [place] [address] 4816 Dec, [facility] [id number], [place] [address] 2546 Nov, [facility] [address] [id number], [place] [address] 3103 July, [facility] [id number], [place] [address]- 4336 May, [facility] [id number], [place] [address]- 4916 Apr, [facility] [address] [id number], [place] [address] Feb, [facility] [address] [id number], [place] [address]203 Dec, IMMUNIZATIONS No Known Immunizations SOCIAL HISTORY Never Assessed REASON FOR VISIT PALS Novolog/Victoza PLAN OF CARE VITAL SIGNS MEDICATIONS Medication Instructions Dosage Frequency Start Date End Date Duration Status NovoFine 32G X 6 MM subcutaneously 3 times a day as directed for use with Victoza and Novolog Pens 8h July, 90 days Active NovoLog Mix 70/30 Flexpen (70-30) 100 UNIT/ML Subcutaneous 2 times a day Inject 110 units 12h 90 days Active Victoza 18 MG/3ML Subcutaneous Once a day inject 1.8 ml 24h 90 days Active RESULTS No Results PROCEDURES [...]
--- OUTSIDE RECORDS SUMMARY | 2018-06-14 14:43 | XMS REPORT ---
Author Author ARIAN US Organization [facility] Address [address] [place] [address] Care Team Providers Care Table Worker Name Role Phone ARIAN US Unavailable PROBLEMS Type Condition ICD9-CM Code WLV47-AJ Code Onset Dates Condition Status SNOMED Code Problem Lumbar radiculopathy M54.16 Active 222793953 Problem correction current 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 Z79.891 Active 839052683 Problem Bipolar 1 disorder F31.9 Active 812790545 Problem Type 2 diabetes mellitus with hyperglycemia E11.65 Active 60123323 Problem technician terminal and repeater current use of insulin Z79.4 Active 975663111 Problem Hyperlipidemia, unspecified E78.5 Active 50620047 Problem Type 2 diabetes mellitus with complication E11.8 Active 934845770 Problem New daily persistent headache G44.52 Active 869318150 Problem Acute bilateral low back pain with right-sided sciatica M54.41 Active 314561780 Problem Obesity, unspecified 278.00 Active 876920547 Problem Hyperlipidemia 272.4 Active 51197886 Problem Post laminectomy syndrome M96.1 Active 53557093 Problem Eye exam normal Z01.00 Active 653250326 Problem 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 Active 65507434 Problem Non compliance with medical treatment Z91.19 Active 4827612 Problem Bipolar disorder, in partial remission, most recent episode manic F31.73 Active 28741665 Problem Diabetes E11.9 Active 994809350 Problem Extreme poverty Z59.5 Active 80760611 Problem Irritable bowel syndrome with diarrhea K58.0 Active 683377446 ALLERGIES No Information ENCOUNTERS Encounter Location Date Diagnosis [facility] [address] [place] [address] Nov, [facility] [address], [place] [address] Nov, [facility] [id number] [place] [address] 48966- 4375 Nov, [facility] [id number] [place] [address] 24131- 7071 Oct, [facility] [id number] [place] [address] 08564- 1976 Oct, Type 2 diabetes mellitus with hyperglycemia E11.65 ; technician terminal and repeater current use of insulin Z79.4 and Other acute gastritis without hemorrhage K29.00 [facility] [id number] [place] [address] 36934- 4883 Oct, Bipolar 1 disorder F31.9 ; 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 and Extreme poverty Z59.5 [facility] [id number] [place] [address] 38804- 3334 Sep, Diarrhea, unspecified R19.7 and Vomiting, unspecified R11.10 [place] [address] 22490- 0422 Aug, Type 2 diabetes mellitus with complication E11.8 [facility] [id number] [place] [address] 04716- 3860 Aug, [facility] [id number] [place] [address] 24389- 1632 Aug, Bipolar 1 disorder F31.9 ; 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 and Extreme poverty Z59.5 [facility] [id number] [place] [address] 72953- 9100 Aug, 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 and Bipolar disorder, in partial remission, most recent episode manic F31.73 [facility] [id number] [place] [address] 76084- 6481 Aug, Bipolar 1 disorder F31.9 [facility] [id number] [place] [address] 54406- 2615 Aug, [facility] [id number] [place] [address] 49699- 2288 Aug, [place] [address] [place] [address] 13930- 4855 Aug, Bipolar 1 disorder F31.9 ; 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 and Extreme poverty Z59.5 [facility] [address] [place] [address] 58742- 7545 July, Type 2 diabetes mellitus with complication E11.8 [facility] [id number] [place] [address] 73103- 0767 July, Bipolar 1 disorder F31.9 ; 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 and Extreme poverty Z59.5 [facility] [id number] [place] [address] 20228- 5283 Jun, Bipolar 1 disorder F31.9 ; 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 and Extreme poverty Z59.5 [facility] [id number] [place] [address] 28602- 9561 Jun, Bipolar 1 disorder F31.9 ; 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 and Extreme poverty Z59.5 [facility] [address] [place] [address] 21858- 9473 Jun, Bipolar 1 disorder F31.9 ; 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 and Extreme poverty Z59.5 [facility] [place] [address] [place] [address] 27437- 7105 May, Urinary tract infection without hematuria, site unspecified N39.0 [facility] [address] [place] [address] 58565- 8028 May, Bipolar 1 disorder F31.9 ; 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 and Extreme poverty Z59.5 [facility] [id number] [place] [address] 48788- 3327 Apr, Diabetes E11.9 and Breast cancer screening Z12.31 [facility] [id number] [place] [address] 89675- 0944 Apr, Bipolar 1 disorder F31.9 and 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 [facility] [id number] [place] [address] 92519- 9879 Mar, Bipolar 1 disorder F31.9 ; 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 and Extreme poverty Z59.5 [facility] [id number] [place] [address] 86907- 5961 Mar, New daily persistent headache G44.52 ; Leg pain 729.5 and History of carpal tunnel release Z98.890 [facility] [id number] [place] [address] 05245- 7951 Mar, Hyperlipidemia, unspecified E78.5 [place] [address] 28884- 7393 Mar, Bipolar 1 disorder F31.9 ; 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 and Extreme poverty Z59.5 [facility] [address] 65740- 7512 Feb, Bipolar 1 disorder F31.9 ; 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 and Extreme poverty Z59.5 [facility] [address] 062453- 2681 Feb, Diabetes E11.9 [facility] [address] 39907- 0853 Feb, Viral syndrome B34.9 [facility] [address] 49380- 4269 Jan, Other viral agents as the cause of diseases classified elsewhere B97.89 and Acute upper respiratory infection, unspecified J06.9 [facility] [id number] [place] [address] 81839- 0560 Jan, Bipolar 1 disorder F31.9 and 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 [facility] [id number] [place] [address] 85050- 4019 Jan, Bipolar 1 disorder F31.9 ; 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 and Extreme poverty Z59.5 [place] [id number] [place] [address] 88894- 7637 Dec, Diabetes E11.9 [facility] [id number] [place] [address] 88355- 9402 Dec, Diabetes E11.9 and Encounter for immunization Z23 [facility] [id number] [place] [address] 82723- 6620 Dec, Bipolar 1 disorder F31.9 ; 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 and Extreme poverty Z59.5 [facility] [id number] [place] [address] 97290- 2295 Dec, Back pain M54.9 [facility] [id number] [place] [address] 37614- 4712 07 Nov, 2016 [facility] [id number] [place] [address] 47032- 3039 Nov, Bipolar 1 disorder F31.9 ; 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 and Extreme poverty Z59.5 [facility] [id number] [place] [address] 96064- 8415 05 Nov, 2016 Bipolar 1 disorder F31.9 ; 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 and Extreme poverty Z59.5 [facility] [id number] [place] [address] 11588- 2608 Oct, 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 and Bipolar 1 disorder F31.9 [facility] [id number] [place] [address] 06978- 4550 Oct, Bipolar 1 disorder F31.9 ; 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 and Extreme poverty Z59.5 [facility] [id number] [place] [address] 91082- 0690 Oct, Back pain M54.9 [facility] [id number] [place] [address] 41575- 9428 Oct, 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 and Type 2 diabetes mellitus with complication E11.8 [facility] [address] [place] [address] 89400- 3706 Sep, Bipolar 1 disorder F31.9 ; 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 and Extreme poverty Z59.5 [facility] [id number] [place] [address] 61023- 6264 Sep, 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 and Bipolar 1 disorder F31.9 [facility] [id number] [place] [address] 00424- 6645 Sep, Bipolar 1 disorder F31.9 ; 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 and Extreme poverty Z59.5 [facility] [id number] [place] [address] 01389- 3915 Aug, Diabetes E11.9 ; Hyperlipidemia, unspecified E78.5 and Lumbar radiculopathy M54.16 [facility] [id number] [place] [address] 85663- 0396 Aug, Bipolar 1 disorder F31.9 ; 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 and Extreme poverty Z59.5 [facility] [id number] [place] [address] 38851- 3554 Aug, [facility] [id number] [place] [address] 20823- 8624 Aug, [facility] [id number] [place] [address] 04458- 7467 Aug, [facility] [id number] [place] [address] 96684- 2287 July, [facility] [id number] [place] [address] 57348- 4566 July, Acute bilateral low back pain with right-sided sciatica M54.41 [facility] [place] [address] [place] [address] 97203- 0235 July, Bipolar 1 disorder F31.9 ; 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 and Extreme poverty Z59.5 [facility] [id number] [place] [address] 79316- 5541 July, Back pain M54.9 and Diabetes E11.9 [facility] [id number] [place] [address] 30084- 3012 Jun, Bipolar 1 disorder F31.9 ; 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 and Extreme poverty Z59.5 [facility] [id number] [place] [address] 22541- 5737 Jun, Bipolar 1 disorder F31.9 ; 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 and Extreme poverty Z59.5 [facility] [id number] [place] [address] 48352- 5958 May, Visit for pelvic exam Z01.419 ; Acute vaginitis N76.0 and Diabetes E11.9 [facility] [id number] [place] [address] 29437- 2833 May, Bipolar 1 disorder F31.9 ; 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 and Extreme poverty Z59.5 [facility] [id number] [place] [address] 84683- 3800 May, [facility] [id number] [place] [address] 26758- 6031 May, [facility] [id number] [place] [address] 54821- 1197 May, Bipolar 1 disorder F31.9 ; 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 and Extreme poverty Z59.5 [facility] [id number] [place] [address] 61709- 5472 May, Hyperlipidemia, unspecified E78.5 [facility] [id number] [place] [address] 95762- 7721 Apr, Breast cancer screening Z12.39 [facility] [id number] [place] [address] 29660- 7868 Mar, [place] [address] [place] [address] 63574- 6843 Mar, Bipolar disorder, current episode mixed, unspecified F31.60 [facility] [facility] [address] 16995- 3112 Mar, Bipolar 1 disorder F31.9 ; 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 and Extreme poverty Z59.5 [place] [address] 28663- 3461 Feb, Acute nasopharyngitis J00 [place] [address] 19423- 6126 27 Feb, 2016 Dental examination Z01.20 [facility] [facility] [address] 81462- 7779 Feb, Dental cavities K02.9 and Chronic periodontitis, unspecified K05.30 [place] [address] 51034- 9714 Feb, Low back pain M54.5 and Extreme poverty Z59.5 [place] [address] 21455- 0073 Feb, [place] [address] 58352- 3021 05 Feb, 2016 Routine gynecological examination V72.31 ; Breast cancer screening Z12.39 and Herpes simplex type 1 infection B00.9 [place] [address] 09783- 6045 Feb, Diabetes E11.9 [place] [address] 86822- 8488 Feb, Encounter for dental examination and cleaning without abnormal findings Z01.20 [place] [address] 36303- 1375 Jan, Hyperlipidemia, unspecified E78.5 [facility] [facility] [address] 65320- 1378 Jan, Bipolar 1 disorder F31.9 ; 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 and Extreme poverty Z59.5 [place] [id number] [place] [address] 59583- 4870 18 Jan, 2016 Diabetes E11.9 [facility] [id number] [place] [address] 77334- 0723 17 Jan, 2016 Diabetes E11.9 [facility] [id number] [place] [address] 71255- 1584 14 Dec, 2015 Bipolar 1 disorder F31.9 ; 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 and Extreme poverty Z59.5 [facility] [id number] [place] [address] 15173- 6030 13 Dec, 2015 Bipolar disorder, current episode mixed, unspecified F31.60 and 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 [facility] [id number] [place] [address] 14929- 9997 16 Nov, 2015 Bipolar 1 disorder F31.9 ; 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 ; Extreme poverty Z59.5 and Non compliance with medical treatment Z91.19 [facility] [id number] [place] [address] 28267- 9156 Oct, [facility] [id number] [place] [address] 58106- 7514 29 Oct, 2015 Dental caries K02.9 [facility] [id number] [place] [address] 69947- 8005 Oct, Low back pain M54.5 and Other chronic pain G89.29 [facility] [id number] [place] [address] 19383- 1389 24 Oct, 2015 Bipolar 1 disorder F31.9 ; 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 ; Extreme poverty Z59.5 and Non compliance with medical treatment Z91.19 [facility] [id number] [place] [address] 69370- 0066 Oct, [facility] [id number] [place] [address] 51748- 2546 Oct, [facility] [address], [place] [address]- 5559 Oct, Dental examination Z01.20 [facility] [address] [place] [address] 05513- 8563 Oct, Bipolar 1 disorder F31.9 ; 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 ; Extreme poverty Z59.5 and Non compliance with medical treatment Z91.19 [facility] [place] [address] [place] [address] 16097- 3813 Oct, [facility] [address] [place] [address] 90952- 7956 Sep, Type 2 diabetes mellitus with complication E11.8 [facility] [address] [place] [address] 72712- 3450 Sep, Bipolar disorder, current episode mixed, unspecified F31.60 [facility] [address] [place] [address] 38379- 4361 Sep, Bipolar disorder, current episode mixed, unspecified F31.60 [facility] [address] [place] [address] 53080- 0444 Sep, Bipolar disorder, in partial remission, most recent episode manic F31.73 ; 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 ; Extreme poverty Z59.5 and Non compliance with medical treatment Z91.19 [facility] [id number] [address]- 9286 Aug, Bipolar disorder, in partial remission, most recent episode manic F31.73 ; 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 ; Extreme poverty Z59.5 and Non compliance with medical treatment Z91.19 [facility] [place] [address] [place] [address] 13128- 0605 Aug, Bipolar disorder, in partial remission, most recent episode manic F31.73 ; 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 ; Extreme poverty Z59.5 and Non compliance with medical treatment Z91.19 [facility] [id number] [place] [address] 58588- 0072 Aug, [facility] [id number] [place] [address] 38966- 5343 July, Bipolar disorder, in partial remission, most recent episode manic F31.73 ; 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 ; Extreme poverty Z59.5 and Non compliance with medical treatment Z91.19 [place] [address] 72585- 1844 July, Bipolar disorder, current episode mixed, unspecified F31.60 [facility] [id number] [place] [address] 82457- 0972 July, Bipolar disorder, in partial remission, most recent episode manic F31.73 ; 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 ; Extreme poverty Z59.5 and Non compliance with medical treatment Z91.19 [facility] [address] [place] [address] 38710- 3949 July, correction current 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 Z79.891 and Chronic pain G89.29 [facility] [id number] [place] [address] 25370- 6931 Jun, correction current 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 Z79.891 and Bipolar 1 disorder F31.9 [facility] [address] [place] [address] 48132- 3021 Jun, [facility] [id number] [place] [address] 98980- 8341 Jun, [facility] [id number] [place] [address] 92588- 6270 Jun, [facility] [id number] [place] [address] 46842- 6575 Jun, Bipolar disorder, in partial remission, most recent episode manic F31.73 ; 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 and Non compliance with medical treatment Z91.19 [facility] [id number] [place] [address] 84831- 8877 May, Bipolar disorder, in partial remission, most recent episode manic F31.73 ; 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 and Non compliance with medical treatment Z91.19 [place] [address] [place] [address] 86330- 1708 May, Bipolar disorder, in partial remission, most recent episode manic F31.73 [facility] [id number] [place] [address] 45060- 5630 May, Diabetes E11.9 and Chronic pain G89.29 [facility] [id number] [place] [address] 38094- 8361 May, [facility] [id number] [place] [address] 14969- 8747 May, Bipolar disorder, in partial remission, most recent episode manic F31.73 ; Non compliance with medical treatment Z91.19 and 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 [place] [address] [place] [address] 99906- 2645 May, Type 2 diabetes mellitus with complication E11.8 and Back pain M54.9 [place] [id number] [place] [address] 97879- 1192 May, Bipolar disorder, in partial remission, most recent episode manic F31.73 and 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 [facility] [id number] [place] [address] 19456- 1066 Apr, [place] [id number] [place] [address] 81276- 5456 Apr, [facility] [id number] [place] [address] 49812- 6117 Apr, [facility] [id number] [place] [address] 13981- 3321 Apr, Diabetes E11.9 ; Irritable bowel syndrome with diarrhea K58.0 and Lumbar radiculopathy M54.[address] [place] [address] 10906- 1408 02 Apr, 2015 Breast screening Z12.39 [facility] [id number] [place], [place] [address]- 8295 02 Apr, 2015 Bipolar disorder, in partial remission, most recent episode manic F31.73 ; Non compliance with medical treatment Z91.19 and 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 [facility] [id number] [place] [address] 27219- 5607 Mar, Edema, unspecified type R60.9 and Type 2 diabetes mellitus with complication E11.8 [place] [id number] [place], [place] [address]- 1888 Mar, Bipolar disorder, in partial remission, most recent episode manic F31.73 ; Non compliance with medical treatment Z91.19 ; 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 and Extreme poverty Z59.5 [place] [address] [place] [address] 81625- 5262 Mar, Bipolar disorder, current episode mixed, unspecified F31.60 ; 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 ; Extreme poverty Z59.5 and Generalized anxiety disorder F41.1 [place] [address] [place] [address] 59235- 2725 Mar, Bipolar disorder, in partial remission, most recent episode manic F31.73 ; 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 and Extreme poverty Z59.5 [place] [address] [place] [address] 97179- 1961 Feb, Bipolar disorder, in partial remission, most recent episode manic F31.73 ; 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 and Extreme poverty Z59.5 [place] [address] [place] [address] 95304- 1103 Feb, Bipolar disorder, in partial remission, most recent episode manic F31.73 ; 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 and Extreme poverty Z59.5 [place] [address] [place] [address]- 2546 Feb, [place] [id number] [place] [address] 92510- 5502 Jan, Type 2 diabetes mellitus with complication E11.8 and Petechiae R23.3 [facility] [id number] [place] [address] 57089- 8355 Jan, Type 2 diabetes mellitus with complication E11.8 ; Edema, unspecified R60.9 ; Petechiae R23.3 and Diabetes E11.9 [place] [id number] [place] [address] 95460- 5269 Jan, Bipolar disorder, in partial remission, most recent episode manic F31.73 ; 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 and Extreme poverty Z59.5 [place] [id number] [place] [address] 87905- 8286 Jan, Bipolar disorder, in partial remission, most recent episode manic F31.73 ; 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 and Extreme poverty Z59.5 [place] [id number] [place] [address] 64946- 5805 Dec, Bipolar disorder, in partial remission, most recent episode manic F31.73 [place] [id number] [place] [address] 29809- 8965 Dec, Edema, due to unspecified malnutrition type, unspecified edema R60.9 and Essential hypertension I10 [place] [id number] [place] [address] 50796- 2854 Dec, Bipolar disorder, in partial remission, most recent episode manic F31.73 [place] [id number] [place] [address] 82918- 8809 Nov, Bipolar I disorder, most recent episode (or current) mixed, unspecified 296.60 [place] [id number] [place] [address] 90434- 4795 Nov, Stress incontinence, female 625.6 ; Back pain 724.5 and Leg pain 729.5 [facility] [address] [place] [address]- 0694 Nov, Generalized anxiety disorder 300.02 and Bipolar II disorder 296.89 [facility] [address] [place] [address]- 5339 Nov, Bipolar I disorder, most recent episode (or current) mixed, unspecified 296.60 [facility] [id number] [place] [address] 75943- 0766 Oct, [facility] [id number] [place] [address] 08926- 0775 Oct, [facility] [id number] [place] [address] 34776- 8143 Oct, [facility] [id number] [place] [address] 71249- 8906 Oct, Bipolar I disorder, most recent episode (or current) mixed, unspecified 296.60 [facility] [address] [address] 45[address] Sep, Diabetes 250.00 [facility] [id number] [place] [address] 33088- 8787 Sep, Bipolar I disorder, most recent episode (or current) mixed, unspecified 296.60 [facility] [address] [address] 5750 Sep, [facility] [address] [address] 2663 Sep, [facility] [address] [address]- 8078 Sep, Bipolar I disorder, most recent episode (or current) mixed, unspecified 296.60 [facility] [address], [place] [address] 9842 Sep, Bipolar I disorder, most recent episode (or current) mixed, unspecified 296.60 [facility] [address], [place] [address]- 9340 Sep, [facility] [id number] [place] [address] 956704- 9440 Sep, Anxiety 300.00 ; Diabetes 250.00 and Hyperlipidemia 272.4 [facility] [address], [place] [address] 5157 Aug, [facility] [id number] [place] [address] 10462- 0531 Aug, [facility] [address], [place] [address]- 0912 Aug, [facility] [id number] [place] [address] 071102- 8222 Aug, Bipolar I disorder, most recent episode (or current) mixed, unspecified 296.60 [facility] [id number] [place] [address] 67054- 2834 Aug, Generalized anxiety disorder 300.02 and Bipolar II disorder 296.89 [facility] [address], [place] [address]- 7478 July, Bipolar I disorder, most recent episode (or current) mixed, unspecified 296.60 [facility] [address], [place] [address]- 5347 July, Cough 786.2 [facility] [address], [place] [address]- 4442 July, Bipolar I disorder, most recent episode (or current) mixed, unspecified 296.60 [facility] [address], [place] [address]- 0469 Jun, Diabetes 250.00 [facility] [address] [address] [address] Jun, [facility] [id number] [address] 5558 Jun, [facility] [place] [facility] [address] [id number] [place] [address]- 8792 May, [facility] [place] [facility] [address] [id number] [place] [address]- 1395 May, [facility] [place] [facility] [address] [id number] [place] [address]- 5669 May, [facility] [place] [facility] [address] [id number] [place] [address]- 1122 May, [facility] [place] [facility] [address] [id number] [place] [address]- 2225 May, [facility] [place] [facility] [address] [id number] [place] [address]- 4263 May, [facility] [place] [facility] [address] [facility] [id number] [place] [address]- 2896 Apr, [facility] [place] [facility] [address] [id number] [place] [address]- 5352 Apr, [facility] [place] [facility] [address] [id number] [place] [address]- 7592 Apr, [facility] [place] [facility] [address] [facility] [id number] [place] [address]- 0098 Apr, [facility] [place] [facility] [address] [id number] [place] [address]- 5860 Apr, [facility] [place] [facility] [address] [id number] [place] [address]- 2682 Apr, [facility] [place] [facility] [address] [id number] [place] [address]- 6597 Apr, [facility] [place] [facility] [address] [id number] [place] [address]- 3650 Apr, [facility] [place] [facility] [address] [facility] [id number] [place] [address]- 7744 Mar, [facility] [place] [facility] [address] [id number] [place] [address]- 0704 Mar, [facility] [address] [id number] [place] [address]- 7570 Mar, [facility] [place] [facility] [address] [id number] [place] [address]- 2936 Mar, [facility] [address] [id number] [place] [address]- 4441 Mar, [facility] [place] [facility] [address] [id number] [place] [address]- 1626 Mar, [facility] [address] [id number] [place] [address]- 9001 Mar, [facility] [address] [id number] [place] [address]- 9437 Mar, [facility] [address] [id number] [place] [address]- 1675 Feb, [facility] [address] [id number] [place] [address]- 9763 Feb, [facility] [place] [facility] [address] [id number] [place] [address]- 2435 Feb, [facility] [address] [id number] [place] [address]- 8845 Feb, [facility] [place] [facility] [address] [id number] [place] [address]- 9152 Feb, [facility] [place] [facility] [address] [id number] [place] [address]- 1841 Feb, [facility] [place] [facility] [address] [id number] [place] 5235 Feb, [facility] [place] [facility] [address] [id number] [place] 0965 Feb, [facility] [place] [facility] [address] [id number] [place] [address]- 0408 Feb, [facility] [place] [facility] [address] [id number] [place] [address]- 4123 Feb, [facility] [place] [facility] [address] [id number] [place] [address]- 3963 Jan, [facility] [place] [facility] [address] [id number] [place] [address]- 2112 Jan, [facility] [place] [facility] [address] [id number] [place] [address]- 5031 Jan, [facility] [place] [facility] [address] [id number] [place] [address]- 2016 Jan, [facility] [place] [facility] [address] [id number] [place] [address]- 2095 Jan, [facility] [place] [facility] [address] [id number] [place] [address]- 3209 Jan, [facility] [place] [facility] [address] [id number] [place] [address]- 8045 Jan, [facility] [place] [facility] [address] [id number] [place] [address]- 4792 Jan, [facility] [place] [facility] [address] [id number] [place] [address]- 8987 Jan, [facility] [place] [facility] [address] [id number] [place] [address]- 5692 Jan, [facility] [place] [facility] [address] [id number] [place] [address]- 1462 Jan, [facility] [place] [facility] [address] [id number] [place] [address]- 9787 Jan, [facility] [place] [facility] [address] [id number] [place] [address]- 2436 Jan, [facility] [place] [facility] [address] [id number] [place] [address]- 8115 Jan, [facility] [place] [facility] [address] [id number], [place] [address]- 1773 Jan, [facility] [place] [facility] [address] [id number] [place] [address]- 9755 Dec, [facility] [place] [facility] [address] [id number] [place] [address]- 9763 Dec, [facility] [place] [facility] [address] [id number] [place] [address]- 1466 Dec, [facility] [place] [facility] [address] [id number] [place] [address]- 2310 Dec, [facility] [place] [facility] [address] [id number] [place] [address]- 1641 Dec, [facility] [place] [facility] [address] [id number] [place] [address]- 0748 Dec, [facility] [place] [facility] [address] [id number] [place] [address]- 2282 Dec, [facility] [place] [facility] [address] [id number] [place] [address]- 2182 Dec, [facility] [place] [facility] [address] [id number] [place] [address]- 1192 25 Nov, 2013 [facility] [place] [facility] [address] [id number] [place] [address]- 1928 25 Sep, 2013 [facility] [place] [facility] [address] [id number], [place] [address]- 5704 10 Sep, 2013 [facility] [place] [facility] [address] [id number], [place] [address]- 7421 10 Sep, 2013 [facility] [place] [facility] [address] [id number] [place] [address]- 3263 08 Sep, 2013 [facility] [place] [facility] [address] [id number] [place] [address]- 4128 08 Sep, 2013 [facility] [place] [facility] [address] [id number] [place] [address]- 1533 08 Sep, 2013 [facility] [place] [facility] [address] [id number] [place] [address]- 5711 08 Sep, 2013 [facility] [place] [facility] [address] [id number] [place] [address]- 4813 08 Sep, 2013 [facility] [place] [facility] [address] [id number] [place] [address]- 5126 08 Nov, 2013 [facility] [place] [facility] [address] [id number] [place] [address]- 0386 04 Sep, 2013 [facility] [place] [facility] [address] [id number] [place] [address]- 5644 04 Nov, 2013 [facility] [place] [facility] [address] [id number] [place] [address]- 2627 03 Nov, 2013 [facility] [place] [facility] [address] [id number] [place] [address]- 5580 Nov, 2013 [facility] [place] [facility] [address] [id number] [place] [address]- 6953 Nov, 2013 [facility] [place] [facility] [address] [id number] [place] [address]- 8416 Oct, [facility] [place] [facility] [address] [id number] [place] [address]- 6889 Oct, [facility] [place] [facility] [address] [id number] [place] [address]- 3765 Oct, [facility] [place] [facility] [address] [id number] [place] [address]- 6185 Oct, [facility] [place] [facility] [address] [id number] [place] [address]- 2540 Oct, [facility] [place] [facility] [address] [id number] [place] [address]- 2502 Oct, [facility] [place] [facility] [address] [id number] [place] [address]- 6701 Oct, [facility] [place] [facility] [address] [id number] [place] [address]- 9528 Oct, [facility] [place] [facility] [address] [id number] [place] [address]- 2041 Oct, [facility] [place] [facility] [address] [id number] [place] [address]- 4727 Oct, [facility] [place] [facility] [address] [id number] [place] [address]- 3099 Oct, [facility] [place] [facility] [address] [id number] [place] [address]- 2552 Oct, [facility] [place] [facility] [address] [id number] [place] [address]- 8645 Oct, [facility] [place] [facility] [address] [id number] [place] [address]- 0957 Oct, [facility] [place] [facility] [address] [id number] [place] [address]- 2847 Sep, [facility] [place] [facility] [address] [id number] [place] [address]- 2487 Sep, [facility] [place] [facility] [address] [id number] [place] [address]- 9800 Sep, [facility] [place] [facility] [address] [id number] [place] [address]- 0603 Sep, [facility] [place] [facility] [address] [id number] [place] [address]- 7943 Sep, [facility] [place] [facility] [address] [id number] [place] [address]- 2176 Sep, [facility] [place] [facility] [address] [id number] [place] [address]- 0505 Sep, [facility] [place] [facility] [address] [id number] [place] [address]- 5443 Sep, [facility] [place] [facility] [address] [id number] [place] [address]- 6187 Aug, [facility] [place] [facility] [address] [id number] [place] [address]- 4972 Aug, [facility] [place] [facility] [address] [id number] [place] [address]- 2399 Aug, [facility] [place] [facility] [address] [id number] [place] [address]- 5153 Aug, [facility] [place] [facility] [address] [id number] [place] [address]- 8131 Aug, [facility] [place] [facility] [address] [id number] [place] [address]- 3321 Aug, [facility] [place] [facility] [address] [id number] [place] [address]- 8978 Aug, [facility] [place] [facility] [address] [id number] [place] [address]- 2067 Aug, [facility] [place] [facility] [address] [id number] [place] [address]- 2086 July, [facility] [place] [facility] [address] [id number] [place] [address]- 4475 July, [facility] [place] [facility] [address] [id number] [place] [address]- 8395 July, [facility] [place] [facility] [address] [id number] [place] [address]- 5613 July, [facility] [place] [facility] [address] [id number] [place] [address]- 6138 July, [facility] [place] [facility] [address] [id number] [place] [address]- 7754 July, [facility] [place] [facility] [address] [id number] [place] [address]- 8750 July, [facility] [place] [facility] [address] [id number] [place] [address]- 5360 July, [facility] [place] [facility] [address] [id number] [place] [address]- 0336 Jun, [facility] [place] [facility] [address] [id number] [place] [address]- 0619 Jun, [facility] [place] [facility] [address] [id number] [place] [address]- 8394 Jun, [facility] [place] [facility] [address] [id number] [place] [address]- 0208 Jun, [facility] [place] [facility] [address] [id number] [place] [address]- 2033 Jun, [facility] [place] [facility] [address] [id number] [place] [address]- 4092 Jun, [facility] [place] [facility] [address] [id number] [place] [address]- 4072 Jun, [facility] [place] [facility] [address] [id number] [place] [address]- 6533 Jun, [facility] [place] [facility] [address] [id number] [place] [address]- 0980 Jun, [facility] [place] [facility] [address] [id number] [place] [address]- 3341 Jun, [facility] [place] [facility] [address] [id number] [place] [address]- 9470 Jun, [facility] [place] [facility] [address] [id number] [place] [address]- 9878 Jun, [facility] [place] [facility] [address] [id number] [place] [address]- 1181 May, [facility] [place] [facility] [address] [id number] [place] [address]- 3924 May, [facility] [place] [facility] [address] [id number] [place] [address]- 1747 May, [facility] [place] [facility] [address] [id number] [place] [address]- 2742 May, [facility] [place] [facility] [address] [id number] [place] [address]- 5130 13 May, 2013 [facility] [place] [facility] [address] [id number] [place] [address]- 4032 13 May, 2013 [facility] [place] [facility] [address] [id number] [place] [address]- 7935 12 May, 2013 [facility] [place] [facility] [address] [facility] [id number] [place] [address]- 7372 12 May, 2013 [facility] [place] [facility] [address] [id number] [place] [address]- 3360 11 May, 2013 [facility] [place] [facility] [address] [id number] [place] [address]- 5775 May, [facility] [place] [facility] [address] [id number] [place] [address]- 6097 May, [facility] [place] [facility] [address] [id number] [place] [address]- 6615 May, [facility] [place] [facility] [address] [id number] [place] [address]- 3282 May, [facility] [place] [facility] [address] [id number] [place] [address]- 2516 May, [facility] [place] [facility] [address] [facility] [id number] [place] [address]- 0293 Apr, [facility] [place] [facility] [address] [facility] [id number] [place] [address]- 7510 Apr, [facility] [place] [facility] [address] [id number] [place] [address]- 1676 Apr, [facility] [place] [facility] [address] [id number] [place] [address]- 4477 Apr, [facility] [place] [facility] [address] [id number] [place] [address]- 2999 Apr, [facility] [place] [facility] [address] [facility] [id number] [place] [address]- 9887 Apr, [facility] [place] [facility] [address] [id number] [place] [address]- 5297 Mar, [facility] [place] [facility] [address] [id number] [place] [address]- 7452 Mar, [facility] [place] [facility] [address] [id number] [place] [address]- 9442 Mar, [facility] [place] [facility] [address] [id number] [place] [address]- 6461 Mar, [facility] [place] [facility] [address] [id number] [place] [address]- 9982 Mar, [facility] [place] [facility] [address] [id number] [place] [address]- 6787 Mar, [facility] [place] [facility] [address] [id number] [place] [address]- 4879 Mar, [facility] [place] [facility] [address] [id number] [place] [address]- 4509 Mar, [facility] [place] [facility] [address] [id number] [place] [address]- 4289 Mar, [facility] [place] [facility] [address] [id number] [place] [address]- 2799 Mar, [facility] [place] [facility] [address] [id number] [place] [address]- 1939 Mar, [facility] [place] [facility] [address] [id number] [place] [address]- 6064 Mar, [facility] [place] [facility] [address] [id number] [place] [address]- 2342 Mar, [facility] [place] [facility] [address] [id number] [place] [address]- 0583 Mar, [facility] [place] [facility] [address] [id number] [place] [address]- 6351 Feb, [facility] [place] [facility] [address] [id number] [place] [address]- 5763 Feb, [facility] [address] [id number] [place] [address]- 7445 Feb, [facility] [place] [facility] [address] [id number] [place] [address]- 3368 Feb, [facility] [place] [facility] [address] [id number] [place] 3139 Feb, [facility] [place] [facility] [address] [id number] [place] [address]- 2970 Feb, [facility] [place] [facility] [address] [id number] [place] [address]- 6360 Feb, [facility] [place] [facility] [address] [id number] [place] [address]- 5442 Feb, [facility] [place] [facility] [address] [facility] [id number] [place] [address]- 4425 Feb, [facility] [place] [facility] [address] [id number], [place] [address]- 7770 Feb, [facility] [place] [facility] [address] [id number] [place] [address] Feb, [facility] [place] [facility] [address] [id number], [place] [address] Feb, [facility] [place] [facility] [address] [id number], [place] [address] Feb, [facility] [place] [facility] [address] [id number], [place] [address] Feb, [facility] [place] [facility] [address] [id number] [place] [address] Feb, [facility] [place] [facility] [address] [id number], [place] [address] Feb, [facility] [place] [facility] [address] [facility] [id number], [place] [address] Dec, [facility] [place] [facility] [address] [id number] [place] [address] 24 Dec, 2012 [facility] [place] [facility] [address] [id number] [place] [address] 16 Dec, 2012 [facility] [place] [facility] [address] [id number] [place] [address] 16 Dec, 2012 [facility] [place] [facility] [address] [id number] [place] [address] 16 Dec, 2012 [facility] [place] [facility] [address] [id number] [place] [address] 1277 16 Dec, 2012 [facility] [place] [facility] [address] [id number] [place] [address] 14 Dec, 2012 [facility] [place] [facility] [address] [id number] [place] [address]- 7692 14 Dec, 2012 [facility] [place] [facility] [address] [id number] [place] [address]- [address] 10 Dec, 2012 [facility] [place] [facility] [address] [id number] [place] [address]- [address]458 10 Dec, 2012 [facility] [place] [facility] [address] [id number] [place] [address]- 6540 10 Dec, 2012 [facility] [place] [facility] [address] [id number] [place] [address]- 3760 10 Dec, 2012 [facility] [place] [facility] [address] [id number] [place] [address]- [address] 03 Dec, 2012 [facility] [place] [facility] [address] [id number] [place] [address]- 3535 25 Sep, 2012 [facility] [place] [facility] [address] [id number] [place] [address]396 20 Sep, 2012 [facility] [place] [facility] [address] [id number] [place] [address]- 8556 18 Sep, 2012 [facility] [place] [facility] [address] [id number] [place] [address]- 74[address] 16 Nov, 2012 [facility] [place] [facility] [address] [id number] [place] [address]75 12 Nov, 2012 [facility] [place] [facility] [address] [id number] [place] [address]- 6085 11 Nov, 2012 [facility] [place] [facility] [address] [id number] [place] [address]- 17[address] 05 Nov, 2012 [facility] [place] [facility] [address] [id number] [place] [address] Oct, [facility] [place] [facility] [address] [id number] [place] [address]992 Oct, [facility] [place] [facility] [address] [id number] [place] [address]- [address] 24 Sep, 2012 [facility] [place] [facility] [address] [id number] [place] [address] Sep, [facility] [place] [facility] [address] [id number] [place] [address]- 7755 Sep, [facility] [place] [facility] [address] [id number] [place] [address]- [address]696 Sep, [facility] [place] [facility] [address] [id number] [place] [address]- 4003 Sep, [facility] [place] [facility] [address] [id number] [place] [address]- 1307 Sep, [facility] [place] [facility] [address] [id number] [place] [address]- [address]377 Sep, [facility] [place] [facility] [address] [id number] [place] [address] 1709 Aug, [facility] [place] [facility] [address] [id number] [place] [address] 8038 Aug, [facility] [place] [facility] [address] [id number] [place] [address]- [address] 16 Aug, 2012 [facility] [place] [facility] [address] [id number] [place] [address]- 7846 Aug, [facility] [place] [facility] [address] [id number] [place] [address]- [address]666 Aug, [facility] [place] [facility] [address] [id number] [place] [address]- 2546 Aug, [facility] [place] [facility] [address] [id number] [place] [address] 2546 Aug, [facility] [place] [facility] [address] [id number] [place] [address]- 2546 Aug, [facility] [place] [facility] [address] [id number] [place] [address]- 9746 July, [facility] [place] [facility] [address] [id number] [place] [address] 2546 July, [facility] [place] [facility] [address] [id number] [place] [address] 25[address] July, [facility] [place] [facility] [address] [id number] [place] [id number] July, [facility] [place] [facility] [address] [id number] [place] [address]- 4846 July, [facility] [place] [facility] [address] [facility] [id number] [place] [address]- [address]126 Jun, [facility] [place] [facility] [address] [id number] [place] [address]- 2546 May, [facility] [place] [facility] [address] [id number] [place] [address]- 2546 May, [facility] [place] [facility] [address] [id number] [place] [address]- 2546 May, [facility] [place] [facility] [address] [id number] [place] [address]- 2546 Apr, [facility] [place] [facility] [address] [id number] [place] [address]- 2546 Apr, [facility] [place] [facility] [address] [id number] [place] [address] 2545 Apr, [facility] [address] [id number] [place] [address]- 4471 Mar, [facility] [address] [id number] [place] [address]- 2022 Mar, [facility] [address] [id number] [place] [address]- 6606 Mar, [facility] [address] [id number] [place] [address]- 3291 Mar, [facility] [address] [id number] [place] [address]- 1338 Mar, [facility] [address] [id number] [place] [address]- 2166 Mar, [facility] [address] [id number] [place] [address]- 9207 Mar, [facility] [address] [id number] [place] [address]- 1628 Feb, [facility] [address] [id number] [place] [address]- 6283 Feb, [facility] [address] [id number] [place] [address]- 9556 Feb, [facility] [address] [id number] [place] [address]- 0303 Feb, [facility] [address] [id number] [place] [address]- 3400 Feb, [facility] [address] [id number] [place] [address] Feb, [facility] [address] [id number] [place] [address] Feb, [facility] [address] [id number] [id number] [address] Feb, [facility] [place] [facility] [address] [id number] [place] [address] Jan, [facility] [place] [facility] [address] [id number] [place] [address] Jan, [facility] [place] [facility] [address] [id number] [place] [address] Jan, [facility] [place] [facility] [address] [id number] [place] [address] Jan, [facility] [place] [facility] [address] [id number] [place] [address] Jan, [facility] [place] [facility] [address] [id number] [place] [address] Jan, [facility] [place] [facility] [address] [id number] [place] [address] Jan, [facility] [place] [facility] [address] [id number], [place] [address] Jan, [facility] [place] [facility] [address] [id number] [place] [address]142 Jan, [facility] [place] [facility] [address] [id number], [place] [address] Jan, [facility] [place] [facility] [address] [id number], [place] [address] Jan, [facility] [place] [facility] [address] [id number], [place] [address] Jan, [facility] [place] [facility] [address] [id number], [place] [address] Jan, [facility] [place] [facility] [address] [id number], [place] [address] Jan, [facility] [place] [facility] [address] [facility] [id number], [place] [address] Jan, [facility] [place] [facility] [address] [id number], [place] [address] Jan, [facility] [place] [facility] [address] [id number] [place] [address]- [address] Dec, [facility] [place] [facility] [address] [id number] [place] [address] 6[address] Dec, [facility] [place] [facility] [address] [facility] [id number] [place] [address]- [address] Dec, [facility] [place] [facility] [address] [id number] [place] [address] 16 Dec, 2011 [facility] [place] [facility] [address] [id number] [place] [address]- [address]34 Dec, [facility] [place] [facility] [address] [id number] [place] [address] 6561 Dec, [facility] [place] [facility] [address] [facility] [id number] [place] [address]- [address]177 Dec, [facility] [place] [facility] [address] [id number] [place] [address]- 9071 Dec, [facility] [place] [facility] [id number] [place] [address] Dec, [facility] [place] [facility] [address] [facility] [id number] [place] [address]- [address]774 05 Dec, 2011 [facility] [place] [facility] [address] [id number] [place] [address]- 3623 18 Nov, 2011 [facility] [place] [facility] [address] [id number], [place] [address]- [address] 13 Nov, 2011 [facility] [place] [facility] [address] [id number] [place] [address] 5801 24 Oct, 2011 [facility] [place] [facility] [address] [facility] [id number] [place] [address] 4017 Oct, [facility] [place] [facility] [address] [facility] [id number] [place] [address]- 9396 Oct, [facility] [place] [facility] [address] [id number] [place] [address] 59[address] 16 Oct, 2011 [facility] [place] [facility] [address] [id number] [place] [address]- 4982 Oct, [facility] [place] [facility] [address] [id number] [place] [address] 7346 Oct, [facility] [place] [facility] [address] [id number] [place] [address] 9010 Oct, [facility] [place] [facility] [address] [id number] [place] [address] 1799 Sep, [facility] [place] [facility] [address] [id number] [place] [address]- 4141 Aug, [facility] [place] [facility] [address] [id number] [place] [address]- 9896 Aug, [facility] [place] [facility] [address] [id number] [place] [address]- 1137 Aug, [facility] [place] [facility] [address] [id number] [place] [address] 3634 Aug, [facility] [place] [facility] [address] [id number] [place] [address] 5027 Aug, [facility] [place] [facility] [address] [id number] [place] [address] 3136 July, [facility] [place] [facility] [address] [id number] [place] [address]- 1130 July, [facility] [place] [facility] [address] [id number] [place] [address]- 6428 July, [facility] [place] [facility] [address] [id number] [place] [address]- 6379 Jun, [facility] [place] [facility] [address] [id number] [place] [address]- 6866 Jun, [facility] [place] [facility] [address] [id number] [place] [address]- 3897 Jun, [facility] [place] [facility] [address] [id number] [place] [address]- 8957 Jun, [facility] [place] [facility] [address] [id number] [place] [address]- 1506 30 May, 2011 [facility] [place] [facility] [address] [id number] [place] [address]- 2550 30 May, 2011 [facility] [place] [facility] [address] [id number] [place] [address]- 1005 29 May, 2011 [facility] [place] [facility] [address] [id number] [place] [address]- 0515 28 May, 2011 [facility] [place] [facility] [address] [id number] [place] [address]- 4952 May, [facility] [place] [facility] [address] [id number] [place] [address]- 2833 May, [facility] [place] [facility] [address] [id number] [place] [address]- 1015 May, [facility] [place] [facility] [address] [id number] [place] [address]- 0116 May, [facility] [place] [facility] [address] [id number] [place] [address]- 0845 May, [facility] [place] [facility] [address] [id number] [place] [address]- 6672 05 May, 2011 [facility] [place] [facility] [address] [id number] [place] [address]- 3555 May, [facility] [place] [facility] [address] [id number] [place] [address]- 3549 May, [facility] [place] [facility] [address] [id number] [place] [address]- 2927 Mar, [facility] [place] [facility] [address] [id number] [place] [address]- 3455 Mar, [facility] [place] [facility] [address] [id number] [place] [address]- 9564 28 Feb, 2011 [facility] [place] [facility] [address] [id number] [place] [address]- 8721 20 Feb, 2011 [facility] [place] [facility] [address] [id number] [place] [address]- 6666 20 Feb, 2011 [facility] [place] [facility] [address] [id number] [place] [address]- 2956 15 Feb, 2011 [facility] [place] [facility] [address] [id number] [place] [address]- 8198 13 Feb, 2011 [facility] [place] [facility] [address] [id number] [place] [address]- 5099 13 Feb, 2011 [facility] [place] [facility] [address] [id number] [place] [address]- 6917 13 Feb, 2011 [facility] [place] [facility] [address] [id number] [place] [address]- 8303 28 Jan, 2011 [facility] [place] [facility] [address] [id number] [place] [address]- 9909 23 Jan, 2011 [facility] [place] [facility] [address] [id number] [place] [address]- 6401 22 Jan, 2011 [facility] [place] [facility] [address] [facility] [id number] [place] [address]- 9987 17 Jan, 2011 [facility] [place] [facility] [address] [id number] [place] [address]- 7092 07 Jan, 2011 [facility] [place] [facility] [address] [id number] [place] [address]- 8008 Jan, [facility] [place] [facility] [address] [id number] [place] [address]- 2646 27 Dec, 2010 [facility] [place] [facility] [address] [id number] [place] [address]- 1724 Dec, [facility] [place] [facility] [address] [id number], [place] [address]- 4064 Dec, [facility] [place] [facility] [address] [id number] [place] [address]- 8616 July, [facility] [place] [facility] [address] [id number] [place] [address]- 0965 July, [facility] [place] [facility] [address] [id number] [place] [address]- 4775 Feb, [facility] [place] [facility] [address] [id number] [place] [address], [place] [address]- 9161 Jan, [facility] [place] [facility] [address] [id number] [place] [address]- 8294 Dec, [facility] [place] [facility] [address] [id number] [place] [address]- 9615 Dec, [facility] [place] [facility] [address] [id number] [place] [address]- 9875 Sep, [facility] [place] [facility] [address] [id number] [place] [address]- 7046 Aug, [facility] [place] [facility] [address] [id number] [place] [address]- 5571 Jun, [facility] [place] [facility] [address] [id number] [place] [address]- 9875 Jun, [facility] [place] [facility] [address] [id number] [place] [address]- 8804 Jan, [facility] [place] [facility] [address] [id number], [place] [address]- 6774 Jan, [facility] [place] [facility] [address] [id number] [place] [address]- 2568 Jan, [facility] [place] [facility] [address] [id number] [place] [address]- 2771 Jan, [facility] [place] [facility] [address] [id number] [place] [address]- 5874 29 Dec, 2008 [facility] [place] [facility] [address] [id number], [place] [address]- 2546 Dec, [facility] [address] [facility] [id number], [place] [address]- 3866 Dec, [facility] [address] [id number], [place] [address] 2546 Nov, [facility] [address] [id number], [place] [address]146 July, [facility] [id number], [place] [address]- 9826 May, [facility] [address] [id number], [place] [address] 8444 Apr, [facility] [id number], [place] [address]- 8466 Feb, [facility] [address] [id number], [place] [address]- 7576 Dec, IMMUNIZATIONS No Known Immunizations SOCIAL HISTORY Never Assessed REASON FOR VISIT f/u PLAN OF CARE Activity Details Follow Up 1 Week Reason: VITAL SIGNS MEDICATIONS Unknown Medications RESULTS No Results PROCEDURES Procedure Date Ordered Result Body Site Psychotherapy, patient &/family, 30 minutes, established patient August 04, 2017 INSTRUCTIONS MEDICATIONS ADMINISTERED No Known Medications [...]
--- OUTSIDE RECORDS SUMMARY | 2018-06-14 14:44 | XMS REPORT ---
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 Active 755850822 Problem Hyperlipidemia, unspecified E78.5 Active 37779997 Problem Type 2 diabetes mellitus with complication E11.8 Active 838319007 Problem New daily persistent headache G44.52 Active 451618384 Problem Acute bilateral low back pain with right-sided sciatica M54.41 Active 438888082 Problem Obesity, unspecified 278.00 Active 446481638 Problem Hyperlipidemia 272.4 Active 64125596 Problem Post laminectomy syndrome M96.1 Active 57339012 Problem Eye exam normal Z01.00 Active 478604719 Problem 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 Active 93166093 Problem Non compliance with medical treatment Z91.19 Active 8406779 Problem Bipolar disorder, in partial remission, most recent episode manic F31.73 Active 62273689 Problem Diabetes E11.9 Active 711829137 Problem Extreme poverty Z59.5 Active 76633851 Problem Irritable bowel syndrome with diarrhea K58.0 Active 015967601 ALLERGIES No Information ENCOUNTERS Encounter Location Date Diagnosis [facility] [id number], [place] [address] Nov, [facility] [address] [address] Nov, [facility] [id number] [place] [address] 80730- 1500 Nov, [facility] [id number] [place] [address] 80670- 9347 Oct, [facility] [id number] [place] [address] 66171- 1269 Oct, Type 2 diabetes mellitus with hyperglycemia E11.65 ; 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 and Other acute gastritis without hemorrhage K29.00 [facility] [id number] [place] [address] 56304- 5219 Oct, Bipolar 1 disorder F31.9 ; 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 and Extreme poverty Z59.5 [facility] [id number] [place] [address] 60819- 7914 Sep, Diarrhea, unspecified R19.7 and Vomiting, unspecified R11.10 [facility] [address] 37912- 8084 Aug, Type 2 diabetes mellitus with complication E11.8 [facility] [id number] [place] [address] 37005- 5239 Aug, [facility] [id number] [place] [address] 01769- 0453 Aug, Bipolar 1 disorder F31.9 ; 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 and Extreme poverty Z59.5 [facility] [id number] [place] [address] 75419- 7701 Aug, 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 and Bipolar disorder, in partial remission, most recent episode manic F31.73 [facility] [id number] [place] [address] 42780- 9924 Aug, Bipolar 1 disorder F31.9 [facility] [id number] [place] [address] 99264- 8357 Aug, [facility] [id number] [place] [address] 34232- 7409 Aug, [facility] [id number] [place] [address] 59659- 8851 Aug, Bipolar 1 disorder F31.9 ; 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 and Extreme poverty Z59.5 [facility] [id number] [place] [address] 86254- 7811 July, Type 2 diabetes mellitus with complication E11.8 [facility] [id number] [place] [address] 54128- 7398 July, Bipolar 1 disorder F31.9 ; 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 and Extreme poverty Z59.5 [facility] [id number] [place] [address] 95713- 7268 Jun, Bipolar 1 disorder F31.9 ; 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 and Extreme poverty Z59.5 [facility] [id number] [place] [address] 74757- 1272 Jun, Bipolar 1 disorder F31.9 ; 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 and Extreme poverty Z59.5 [facility] [address] [place] [address] 65027- 4501 Jun, Bipolar 1 disorder F31.9 ; 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 and Extreme poverty Z59.5 [facility] [address] [place] [address] 96130- 1512 May, Urinary tract infection without hematuria, site unspecified N39.0 [facility] [address] [place] [address] 60353- 7006 May, Bipolar 1 disorder F31.9 ; 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 and Extreme poverty Z59.5 [facility] [id number] [place] [address] 44800- 9497 Apr, Diabetes E11.9 and Breast cancer screening Z12.31 [facility] [id number] [place] [address] 79195- 2197 Apr, Bipolar 1 disorder F31.9 and 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 [facility] [id number] [place] [address] 11065- 6059 Mar, Bipolar 1 disorder F31.9 ; 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 and Extreme poverty Z59.5 [facility] [id number] [place] [address] 08413- 0789 Mar, New daily persistent headache G44.52 ; Leg pain 729.5 and History of carpal tunnel release Z98.890 [facility] [id number] [place] [address] 70231- 9304 Mar, Hyperlipidemia, unspecified E78.5 [facility] [address] 29246- 6182 Mar, Bipolar 1 disorder F31.9 ; 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 and Extreme poverty Z59.5 [facility] [address] 05580- 7776 Feb, Bipolar 1 disorder F31.9 ; 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 and Extreme poverty Z59.5 [facility] [address] 043945- 9034 Feb, Diabetes E11.9 [facility] [address] 78467- 0986 Feb, Viral syndrome B34.9 [facility] [address] 31301- 8891 Jan, Other viral agents as the cause of diseases classified elsewhere B97.89 and Acute upper respiratory infection, unspecified J06.9 [facility] [id number] [place] [address] 20066- 5304 Jan, Bipolar 1 disorder F31.9 and 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 [facility] [id number] [place] [address] 39807- 0985 Jan, Bipolar 1 disorder F31.9 ; 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 and Extreme poverty Z59.5 [facility] [id number] [place] [address] 56285- 7695 Dec, Diabetes E11.9 [facility] [id number] [place] [address] 97936- 5862 Dec, Diabetes E11.9 and Encounter for immunization Z23 [facility] [id number] [place] [address] 88927- 1922 Dec, Bipolar 1 disorder F31.9 ; 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 and Extreme poverty Z59.5 [facility] [id number] [place] [address] 92469- 1863 Dec, Back pain M54.9 [facility] [id number] [place] [address] 60362- 6857 07 Nov, 2016 [facility] [id number] [place] [address] 81831- 4744 Nov, Bipolar 1 disorder F31.9 ; 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 and Extreme poverty Z59.5 [facility] [id number] [place] [address] 73687- 2249 05 Nov, 2016 Bipolar 1 disorder F31.9 ; 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 and Extreme poverty Z59.5 [facility] [id number] [place] [address] 83803- 6145 Oct, 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 and Bipolar 1 disorder F31.9 [facility] [id number] [place] [address] 82259- 6423 Oct, Bipolar 1 disorder F31.9 ; 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 and Extreme poverty Z59.5 [facility] [id number] [place] [address] 30732- 5861 Oct, Back pain M54.9 [facility] [id number] [place] [address] 94541- 9115 Oct, 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 and Type 2 diabetes mellitus with complication E11.8 [facility] [address] [place] [address] 47483- 7662 Sep, Bipolar 1 disorder F31.9 ; 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 and Extreme poverty Z59.5 [facility] [id number] [place] [address] 05662- 7878 Sep, 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 and Bipolar 1 disorder F31.9 [facility] [id number] [place] [address] 20631- 6799 Sep, Bipolar 1 disorder F31.9 ; 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 and Extreme poverty Z59.5 [facility] [id number] [place] [address] 41577- 8406 Aug, Diabetes E11.9 ; Hyperlipidemia, unspecified E78.5 and Lumbar radiculopathy M54.16 [facility] [id number] [place] [address] 26784- 9566 Aug, Bipolar 1 disorder F31.9 ; 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 and Extreme poverty Z59.5 [facility] [id number] [place] [address] 77672- 0991 Aug, [facility] [id number] [place] [address] 26897- 6865 Aug, [facility] [id number] [place] [address] 11753- 2899 Aug, [facility] [id number] [place] [address] 93804- 2455 July, [facility] [id number] [place] [address] 94631- 9758 July, Acute bilateral low back pain with right-sided sciatica M54.41 [facility] [address] [place] [address] 65065- 4575 July, Bipolar 1 disorder F31.9 ; 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 and Extreme poverty Z59.5 [facility] [id number] [place] [address] 62372- 1664 July, Back pain M54.9 and Diabetes E11.9 [facility] [id number] [place] [address] 13753- 0909 Jun, Bipolar 1 disorder F31.9 ; 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 and Extreme poverty Z59.5 [facility] [id number] [place] [address] 06039- 9698 Jun, Bipolar 1 disorder F31.9 ; 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 and Extreme poverty Z59.5 [facility] [id number] [place] [address] 71893- 3363 May, Visit for pelvic exam Z01.419 ; Acute vaginitis N76.0 and Diabetes E11.9 [facility] [id number] [place] [address] 91282- 6041 May, Bipolar 1 disorder F31.9 ; 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 and Extreme poverty Z59.5 [facility] [id number] [place] [address] 49230- 7972 May, [facility] [id number] [place] [address] 12991- 6493 May, [facility] [id number] [place] [address] 25595- 4162 May, Bipolar 1 disorder F31.9 ; 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 and Extreme poverty Z59.5 [facility] [id number] [place] [address] 83638- 1909 May, Hyperlipidemia, unspecified E78.5 [facility] [id number] [place] [address] 05975- 5477 Apr, Breast cancer screening Z12.39 [facility] [id number] [place] [address] 37037- 5511 Mar, [facility] [address] [address] 96822- 8323 Mar, Bipolar disorder, current episode mixed, unspecified F31.60 [facility] [address] 51850- 4992 Mar, Bipolar 1 disorder F31.9 ; 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 and Extreme poverty Z59.5 [facility] [address] 90801- 5267 Feb, Acute nasopharyngitis J00 [facility] [address] 30215- 2391 27 Feb, 2016 Dental examination Z01.20 [facility] [address] 23749- 6803 Feb, Dental cavities K02.9 and Chronic periodontitis, unspecified K05.30 [facility] [address] 00177- 5783 Feb, Low back pain M54.5 and Extreme poverty Z59.5 [facility] [address] 15588- 9621 Feb, [facility] [address] 44953- 5288 05 Feb, 2016 Routine gynecological examination V72.31 ; Breast cancer screening Z12.39 and Herpes simplex type 1 infection B00.9 [facility] [address] 11228- 7418 Feb, Diabetes E11.9 [facility] [address] 23952- 0404 Feb, Encounter for dental examination and cleaning without abnormal findings Z01.20 [facility] [address] 31514- 0521 Jan, Hyperlipidemia, unspecified E78.5 [facility] [address] 81328- 2162 Jan, Bipolar 1 disorder F31.9 ; 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 and Extreme poverty Z59.5 [facility] [id number] [place] [address] 56423- 9777 18 Jan, 2016 Diabetes E11.9 [facility] [id number] [place] [address] 80345- 3996 17 Jan, 2016 Diabetes E11.9 [facility] [id number] [place] [address] 62754- 7929 14 Dec, 2015 Bipolar 1 disorder F31.9 ; 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 and Extreme poverty Z59.5 [facility] [id number] [place] [address] 94552- 0600 13 Dec, 2015 Bipolar disorder, current episode mixed, unspecified F31.60 and 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 [facility] [id number] [place] [address] 51811- 1466 16 Nov, 2015 Bipolar 1 disorder F31.9 ; 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 ; Extreme poverty Z59.5 and Non compliance with medical treatment Z91.19 [facility] [id number] [place] [address] 30657- 8342 Oct, [facility] [id number] [place] [address] 29754- 3636 29 Oct, 2015 Dental caries K02.9 [facility] [id number] [place] [address] 47201- 9580 Oct, Low back pain M54.5 and Other chronic pain G89.29 [facility] [id number] [place] [address] 97816- 9562 24 Oct, 2015 Bipolar 1 disorder F31.9 ; 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 ; Extreme poverty Z59.5 and Non compliance with medical treatment Z91.19 [facility] [id number] [place] [address] 34052- 1759 Oct, [facility] [id number] [place] [address] 33881- 0927 Oct, [facility] [address], [place] [address]- 3161 Oct, Dental examination Z01.20 [facility] [address] [place] [address] 97683- 1554 Oct, Bipolar 1 disorder F31.9 ; 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 ; Extreme poverty Z59.5 and Non compliance with medical treatment Z91.19 [facility] [address] [place] [address] 83330- 8862 Oct, [facility] [id number] [place] [address] 09423- 6770 Sep, Type 2 diabetes mellitus with complication E11.8 [facility] [address] [place] [address] 83796- 9700 Sep, Bipolar disorder, current episode mixed, unspecified F31.60 [facility] [address] [place] [address] 87509- 8356 Sep, Bipolar disorder, current episode mixed, unspecified F31.60 [facility] [address] [place] [address] 18024- 1802 Sep, Bipolar disorder, in partial remission, most recent episode manic F31.73 ; 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 ; Extreme poverty Z59.5 and Non compliance with medical treatment Z91.19 [facility] [id number] [address]- 3926 Aug, Bipolar disorder, in partial remission, most recent episode manic F31.73 ; 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 ; Extreme poverty Z59.5 and Non compliance with medical treatment Z91.19 [facility] [address] [place] [address] 38232- 7743 Aug, Bipolar disorder, in partial remission, most recent episode manic F31.73 ; 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 ; Extreme poverty Z59.5 and Non compliance with medical treatment Z91.19 [facility] [id number] [place] [address] 40950- 3336 Aug, [facility] [id number] [place] [address] 20090- 5290 July, Bipolar disorder, in partial remission, most recent episode manic F31.73 ; 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 ; Extreme poverty Z59.5 and Non compliance with medical treatment Z91.19 [facility] [address] 86904- 2753 July, Bipolar disorder, current episode mixed, unspecified F31.60 [facility] [id number] [place] [address] 66786- 3238 July, Bipolar disorder, in partial remission, most recent episode manic F31.73 ; 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 ; Extreme poverty Z59.5 and Non compliance with medical treatment Z91.19 [facility] [id number] [place] [address] 81190- 4512 July, custodial current 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 Z79.891 and Chronic pain G89.29 [facility] [id number] [place] [address] 22517- 8665 Jun, custodial current 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 Z79.891 and Bipolar 1 disorder F31.9 [facility] [id number] [place] [address] 60950- 9711 Jun, [facility] [id number] [place] [address] 46314- 5455 Jun, [facility] [id number] [place] [address] 77959- 7146 Jun, [facility] [id number] [place] [address] 32641- 5892 Jun, Bipolar disorder, in partial remission, most recent episode manic F31.73 ; 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 and Non compliance with medical treatment Z91.19 [facility] [id number] [place] [address] 96661- 5201 May, Bipolar disorder, in partial remission, most recent episode manic F31.73 ; 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 and Non compliance with medical treatment Z91.19 [facility] [address] [place] [address] 14485- 4140 May, Bipolar disorder, in partial remission, most recent episode manic F31.73 [facility] [id number] [place] [address] 56365- 2018 May, Diabetes E11.9 and Chronic pain G89.29 [facility] [id number] [place] [address] 04354- 4058 May, [facility] [id number] [place] [address] 50141- 2689 May, Bipolar disorder, in partial remission, most recent episode manic F31.73 ; Non compliance with medical treatment Z91.19 and 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 [facility] [address] [place] [address] 53533- 7597 May, Type 2 diabetes mellitus with complication E11.8 and Back pain M54.9 [place] [id number] [place] [address] 72301- 8294 May, Bipolar disorder, in partial remission, most recent episode manic F31.73 and 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 [facility] [id number] [place] [address] 52627- 1396 Apr, [facility] [id number] [place] [address] 60351- 6954 Apr, [facility] [id number] [place] [address] 50277- 7828 Apr, [facility] [id number] [place] [address] 70282- 4180 Apr, Diabetes E11.9 ; Irritable bowel syndrome with diarrhea K58.0 and Lumbar radiculopathy M54.[address] [place] [address] 12150- 4093 02 Apr, 2015 Breast screening Z12.39 [facility] [id number] [place] [address]- 8786 02 Apr, 2015 Bipolar disorder, in partial remission, most recent episode manic F31.73 ; Non compliance with medical treatment Z91.19 and 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 [facility] [id number] [place] [address] 85577- 0524 Mar, Edema, unspecified type R60.9 and Type 2 diabetes mellitus with complication E11.8 [place] [id number] [place] [address]- 9300 Mar, Bipolar disorder, in partial remission, most recent episode manic F31.73 ; Non compliance with medical treatment Z91.19 ; 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 and Extreme poverty Z59.5 [facility] [id number] [place] [address] 90300- 4802 Mar, Bipolar disorder, current episode mixed, unspecified F31.60 ; 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 ; Extreme poverty Z59.5 and Generalized anxiety disorder F41.1 [facility] [address] [place] [address] 02889- 2325 Mar, Bipolar disorder, in partial remission, most recent episode manic F31.73 ; 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 and Extreme poverty Z59.5 [facility] [id number] [place] [address] 50755- 3449 Feb, Bipolar disorder, in partial remission, most recent episode manic F31.73 ; 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 and Extreme poverty Z59.5 [facility] [address] [place] [address] 70438- 9518 Feb, Bipolar disorder, in partial remission, most recent episode manic F31.73 ; 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 and Extreme poverty Z59.5 [facility] [place] [address] [place] [address]- 2546 Feb, [facility] [id number] [place] [address] 12506- 2770 Jan, Type 2 diabetes mellitus with complication E11.8 and Petechiae R23.3 [facility] [id number] [place] [address] 07167- 5392 Jan, Type 2 diabetes mellitus with complication E11.8 ; Edema, unspecified R60.9 ; Petechiae R23.3 and Diabetes E11.9 [facility] [id number] [place] [address] 38765- 5592 Jan, Bipolar disorder, in partial remission, most recent episode manic F31.73 ; 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 and Extreme poverty Z59.5 [facility] [id number] [place] [address] 54151- 6076 Jan, Bipolar disorder, in partial remission, most recent episode manic F31.73 ; 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 and Extreme poverty Z59.5 [facility] [id number] [place] [address] 58354- 1761 Dec, Bipolar disorder, in partial remission, most recent episode manic F31.73 [facility] [id number] [place] [address] 41878- 1695 Dec, Edema, due to unspecified malnutrition type, unspecified edema R60.9 and Essential hypertension I10 [facility] [id number] [place] [address] 39312- 7515 Dec, Bipolar disorder, in partial remission, most recent episode manic F31.73 [facility] [id number] [place] [address] 66335- 4624 Nov, Bipolar I disorder, most recent episode (or current) mixed, unspecified 296.60 [place] [id number] [place] [address] 53070- 8136 Nov, Stress incontinence, female 625.6 ; Back pain 724.5 and Leg pain 729.5 [facility] [id number], [place] [address] 78[address] Nov, Generalized anxiety disorder 300.02 and Bipolar II disorder 296.89 [facility] [id number], [place] [address] 2942 Nov, Bipolar I disorder, most recent episode (or current) mixed, unspecified 296.60 [facility] [id number] [place] [address] 65190- 1827 Oct, [facility] [id number] [place] [address] 22929- 9038 Oct, [facility] [id number] [place] [address] 66698- 2769 Oct, [facility] [id number] [place] [address] 75676- 4782 Oct, Bipolar I disorder, most recent episode (or current) mixed, unspecified 296.60 [facility] [id number], [place] [address] 0759 Sep, Diabetes 250.00 [facility] [id number] [place] [address] 11677- 2909 Sep, Bipolar I disorder, most recent episode (or current) mixed, unspecified 296.60 [facility] [id number], [place] [address] 1422 Sep, [facility] [id number], [place] [address]- 7254 Sep, [facility] [id number], [place] [address]- 2222 Sep, Bipolar I disorder, most recent episode (or current) mixed, unspecified 296.60 [facility] [id number], [place] [address]- 7671 Sep, Bipolar I disorder, most recent episode (or current) mixed, unspecified 296.60 [facility] [id number], [place] [address]- 2402 Sep, [facility] [id number] [place] [address] 323028- 4525 Sep, Anxiety 300.00 ; Diabetes 250.00 and Hyperlipidemia 272.4 [facility] [id number], [place] [address]- 9444 Aug, [facility] [id number] [place] [address] 47220- 3133 Aug, [facility] [id number], [place] [address]- 7582 Aug, [facility] [id number] [place] [address] 571994- 4223 Aug, Bipolar I disorder, most recent episode (or current) mixed, unspecified 296.60 [facility] [id number] [place] [address] 28309- 3550 Aug, Generalized anxiety disorder 300.02 and Bipolar II disorder 296.89 [facility] [id number], [place] [address] 1880 July, Bipolar I disorder, most recent episode (or current) mixed, unspecified 296.60 [facility] [id number], [place] [address]- 1507 July, Cough 786.2 [facility] [id number], [place] [address]- 7863 July, Bipolar I disorder, most recent episode (or current) mixed, unspecified 296.60 [facility] [id number], [place] [address]- 3425 Jun, Diabetes 250.00 [facility] [id number] 9461 Jun, [facility] [id number] [address]- 0115 Jun, [facility] [place] [facility] [address] [id number] [place] [address]- 3777 May, [facility] [place] [facility] [address] [id number] [place] [address]- 9993 May, [facility] [place] [facility] [address] [id number] [place] [address]- 2995 May, [facility] [place] [facility] [address] [id number] [place] [address]- 8347 May, [facility] [place] [facility] [address] [id number] [place] [address]- 9575 May, [facility] [place] [facility] [address] [id number] [place] [address]- 6559 May, [facility] [place] [facility] [address] [facility] [id number] [place] [address]- 9115 Apr, [facility] [place] [facility] [address] [id number] [place] [address]- 2313 Apr, [facility] [place] [facility] [address] [id number] [place] [address]- 9006 Apr, [facility] [place] [facility] [address] [facility] [id number] [place] [address]- 9280 Apr, [facility] [place] [facility] [address] [id number] [place] [address]- 7920 Apr, [facility] [place] [facility] [address] [id number] [place] [address]- 9617 Apr, [facility] [place] [facility] [address] [id number] [place] [address]- 4692 Apr, [facility] [place] [facility] [address] [id number] [place] [address]- 7119 Apr, [facility] [place] [facility] [address] [facility] [id number] [place] [address]- 7341 Mar, [facility] [place] [facility] [address] [id number] [place] [address]- 7572 Mar, [facility] [address] [id number] [place] [address]- 4745 Mar, [facility] [place] [facility] [address] [id number] [place] [address]- 2300 Mar, [facility] [address] [id number] [place] [address]- 9157 Mar, [facility] [place] [facility] [address] [id number] [place] [address]- 2689 Mar, [facility] [address] [id number] [place] [address]- 2459 Mar, [facility] [address] [id number] [place] [address]- 2212 Mar, [facility] [address] [id number] [place] [address]- 4501 Feb, [facility] [address] [id number] [place] [address]- 9523 Feb, [facility] [place] [facility] [address] [id number] [place] [address]- 9116 Feb, [facility] [address] [id number] [place] [address]- 2396 Feb, [facility] [place] [facility] [address] [id number] [place] [address]- 7051 Feb, [facility] [place] [facility] [address] [id number] [place] [address]- 8529 Feb, [facility] [place] [facility] [address] [id number] [place] 5050 Feb, [facility] [place] [facility] [address] [id number] [place] 2084 Feb, [facility] [place] [facility] [address] [id number] [place] [address]- 6202 Feb, [facility] [place] [facility] [address] [id number] [place] [address]- 2568 Feb, [facility] [place] [facility] [address] [id number] [place] [address]- 6158 Jan, [facility] [place] [facility] [address] [id number] [place] [address]- 6598 Jan, [facility] [place] [facility] [address] [id number] [place] [address]- 4733 Jan, [facility] [place] [facility] [address] [id number] [place] [address]- 9583 Jan, [facility] [place] [facility] [address] [id number] [place] [address]- 4769 Jan, [facility] [place] [facility] [address] [id number] [place] [address]- 9394 Jan, [facility] [place] [facility] [address] [id number] [place] [address]- 6767 Jan, [facility] [place] [facility] [address] [id number] [place] [address]- 1763 Jan, [facility] [place] [facility] [address] [id number] [place] [address]- 6013 Jan, [facility] [place] [facility] [address] [id number] [place] [address]- 8872 Jan, [facility] [place] [facility] [address] [id number] [place] [address]- 7085 Jan, [facility] [place] [facility] [address] [id number] [place] [address]- 6239 Jan, [facility] [place] [facility] [address] [id number] [place] [address]- 1268 Jan, [facility] [place] [facility] [address] [id number] [place] [address]- 7039 Jan, [facility] [place] [facility] [address] [id number], [place] [address]- 9709 Jan, [facility] [place] [facility] [address] [id number] [place] [address]- 9133 Dec, [facility] [place] [facility] [address] [id number] [place] [address]- 3455 Dec, [facility] [place] [facility] [address] [id number] [place] [address]- 0519 Dec, [facility] [place] [facility] [address] [id number] [place] [address]- 4681 Dec, [facility] [place] [facility] [address] [id number] [place] [address]- 9501 Dec, [facility] [place] [facility] [address] [id number] [place] [address]- 8295 Dec, [facility] [place] [facility] [address] [id number] [place] [address]- 8074 Dec, [facility] [place] [facility] [address] [id number] [place] [address]- 0284 Dec, [facility] [place] [facility] [address] [id number] [place] [address]- 8057 25 Nov, 2013 [facility] [place] [facility] [address] [id number] [place] [address]- 3007 25 Sep, 2013 [facility] [place] [facility] [address] [id number], [place] [address]- 8274 10 Sep, 2013 [facility] [place] [facility] [address] [id number], [place] [address]- 1828 10 Sep, 2013 [facility] [place] [facility] [address] [id number] [place] [address]- 3519 08 Sep, 2013 [facility] [place] [facility] [address] [id number] [place] [address]- 1100 08 Sep, 2013 [facility] [place] [facility] [address] [id number] [place] [address]- 5460 08 Sep, 2013 [facility] [place] [facility] [address] [id number] [place] [address]- 2913 08 Sep, 2013 [facility] [place] [facility] [address] [id number] [place] [address]- 4778 08 Sep, 2013 [facility] [place] [facility] [address] [id number] [place] [address]- 0856 08 Nov, 2013 [facility] [place] [facility] [address] [id number] [place] [address]- 1166 04 Sep, 2013 [facility] [place] [facility] [address] [id number] [place] [address]- 9590 04 Nov, 2013 [facility] [place] [facility] [address] [id number] [place] [address]- 3215 03 Nov, 2013 [facility] [place] [facility] [address] [id number] [place] [address]- 4813 Nov, 2013 [facility] [place] [facility] [address] [id number] [place] [address]- 3665 Nov, 2013 [facility] [place] [facility] [address] [id number] [place] [address]- 9058 Oct, [facility] [place] [facility] [address] [id number] [place] [address]- 1744 Oct, [facility] [place] [facility] [address] [id number] [place] [address]- 2321 Oct, [facility] [place] [facility] [address] [id number] [place] [address]- 1831 Oct, [facility] [place] [facility] [address] [id number] [place] [address]- 2549 Oct, [facility] [place] [facility] [address] [id number] [place] [address]- 6206 Oct, [facility] [place] [facility] [address] [id number] [place] [address]- 1187 Oct, [facility] [place] [facility] [address] [id number] [place] [address]- 7234 Oct, [facility] [place] [facility] [address] [id number] [place] [address]- 7175 Oct, [facility] [place] [facility] [address] [id number] [place] [address]- 3139 Oct, [facility] [place] [facility] [address] [id number] [place] [address]- 9241 Oct, [facility] [place] [facility] [address] [id number] [place] [address]- 1446 Oct, [facility] [place] [facility] [address] [id number] [place] [address]- 2038 Oct, [facility] [place] [facility] [address] [id number] [place] [address]- 4549 Oct, [facility] [place] [facility] [address] [id number] [place] [address]- 1630 Sep, [facility] [place] [facility] [address] [id number] [place] [address]- 4591 Sep, [facility] [place] [facility] [address] [id number] [place] [address]- 1373 Sep, [facility] [place] [facility] [address] [id number] [place] [address]- 2367 Sep, [facility] [place] [facility] [address] [id number] [place] [address]- 1426 Sep, [facility] [place] [facility] [address] [id number] [place] [address]- 8344 Sep, [facility] [place] [facility] [address] [id number] [place] [address]- 1984 Sep, [facility] [place] [facility] [address] [id number] [place] [address]- 4109 Sep, [facility] [place] [facility] [address] [id number] [place] [address]- 1624 Aug, [facility] [place] [facility] [address] [id number] [place] [address]- 1061 Aug, [facility] [place] [facility] [address] [id number] [place] [address]- 6694 Aug, [facility] [place] [facility] [address] [id number] [place] [address]- 7824 Aug, [facility] [place] [facility] [address] [id number] [place] [address]- 7727 Aug, [facility] [place] [facility] [address] [id number] [place] [address]- 1401 Aug, [facility] [place] [facility] [address] [id number] [place] [address]- 4108 Aug, [facility] [place] [facility] [address] [id number] [place] [address]- 2304 Aug, [facility] [place] [facility] [address] [id number] [place] [address]- 3873 July, [facility] [place] [facility] [address] [id number] [place] [address]- 6347 July, [facility] [place] [facility] [address] [id number] [place] [address]- 6798 July, [facility] [place] [facility] [address] [id number] [place] [address]- 5430 July, [facility] [place] [facility] [address] [id number] [place] [address]- 6844 July, [facility] [place] [facility] [address] [id number] [place] [address]- 6059 July, [facility] [place] [facility] [address] [id number] [place] [address]- 0816 July, [facility] [place] [facility] [address] [id number] [place] [address]- 2145 July, [facility] [place] [facility] [address] [id number] [place] [address]- 3350 Jun, [facility] [place] [facility] [address] [id number] [place] [address]- 3424 Jun, [facility] [place] [facility] [address] [id number] [place] [address]- 6794 Jun, [facility] [place] [facility] [address] [id number] [place] [address]- 5231 Jun, [facility] [place] [facility] [address] [id number] [place] [address]- 0694 Jun, [facility] [place] [facility] [address] [id number] [place] [address]- 3726 Jun, [facility] [place] [facility] [address] [id number] [place] [address]- 9219 Jun, [facility] [place] [facility] [address] [id number] [place] [address]- 4898 Jun, [facility] [place] [facility] [address] [id number] [place] [address]- 8525 Jun, [facility] [place] [facility] [address] [id number] [place] [address]- 1106 Jun, [facility] [place] [facility] [address] [id number] [place] [address]- 1329 Jun, [facility] [place] [facility] [address] [id number] [place] [address]- 4056 Jun, [facility] [place] [facility] [address] [id number] [place] [address]- 2143 May, [facility] [place] [facility] [address] [id number] [place] [address]- 5150 May, [facility] [place] [facility] [address] [id number] [place] [address]- 6279 May, [facility] [place] [facility] [address] [id number] [place] [address]- 8906 May, [facility] [place] [facility] [address] [id number] [place] [address]- 8342 13 May, 2013 [facility] [place] [facility] [address] [id number] [place] [address]- 8335 13 May, 2013 [facility] [place] [facility] [address] [id number] [place] [address]- 6093 12 May, 2013 [facility] [place] [facility] [address] [facility] [id number] [place] [address]- 9890 12 May, 2013 [facility] [place] [facility] [address] [id number] [place] [address]- 9669 11 May, 2013 [facility] [place] [facility] [address] [id number] [place] [address]- 3606 May, [facility] [place] [facility] [address] [id number] [place] [address]- 1268 May, [facility] [place] [facility] [address] [id number] [place] [address]- 0400 May, [facility] [place] [facility] [address] [id number] [place] [address]- 9218 May, [facility] [place] [facility] [address] [id number] [place] [address]- 8251 May, [facility] [place] [facility] [address] [facility] [id number] [place] [address]- 3499 Apr, [facility] [place] [facility] [address] [facility] [id number] [place] [address]- 5411 Apr, [facility] [place] [facility] [address] [id number] [place] [address]- 2131 Apr, [facility] [place] [facility] [address] [id number] [place] [address]- 4294 Apr, [facility] [place] [facility] [address] [id number] [place] [address]- 4829 Apr, [facility] [place] [facility] [address] [facility] [id number] [place] [address]- 5707 Apr, [facility] [place] [facility] [address] [id number] [place] [address]- 6762 Mar, [facility] [place] [facility] [address] [id number] [place] [address]- 6803 Mar, [facility] [place] [facility] [address] [id number] [place] [address]- 0436 Mar, [facility] [place] [facility] [address] [id number] [place] [address]- 5474 Mar, [facility] [place] [facility] [address] [id number] [place] [address]- 3377 Mar, [facility] [place] [facility] [address] [id number] [place] [address]- 4352 Mar, [facility] [place] [facility] [address] [id number] [place] [address]- 8408 Mar, [facility] [place] [facility] [address] [id number] [place] [address]- 8131 Mar, [facility] [place] [facility] [address] [id number] [place] [address]- 2598 Mar, [facility] [place] [facility] [address] [id number] [place] [address]- 0310 Mar, [facility] [place] [facility] [address] [id number] [place] [address]- 0975 Mar, [facility] [place] [facility] [address] [id number] [place] [address]- 9304 Mar, [facility] [place] [facility] [address] [id number] [place] [address]- 2757 Mar, [facility] [place] [facility] [address] [id number] [place] [address]- 2071 Mar, [facility] [place] [facility] [address] [id number] [place] [address]- 3254 Feb, [facility] [place] [facility] [address] [id number] [place] [address]- 2053 Feb, [facility] [address] [id number] [place] [address]- 1301 Feb, [facility] [place] [facility] [address] [id number] [place] [address]- 6698 Feb, [facility] [place] [facility] [address] [id number] [place] 0687 Feb, [facility] [place] [facility] [address] [id number] [place] [address]- 8398 Feb, [facility] [place] [facility] [address] [id number] [place] [address]- 4129 Feb, [facility] [place] [facility] [address] [id number] [place] [address]- 9630 Feb, [facility] [place] [facility] [address] [facility] [id number] [place] [address]- 0593 Feb, [facility] [place] [facility] [address] [id number], [place] [address] Feb, [facility] [place] [facility] [address] [id number] [place] [address] Feb, [facility] [place] [facility] [address] [id number], [place] [address] Feb, [facility] [place] [facility] [address] [id number], [place] [address] Feb, [facility] [place] [facility] [address] [id number], [place] [address] Feb, [facility] [place] [facility] [address] [id number] [place] [address] Feb, [facility] [place] [facility] [address] [id number], [place] [address] Feb, [facility] [place] [facility] [address] [facility] [id number], [place] [address] Dec, [facility] [place] [facility] [address] [id number] [place] [address] 24 Dec, 2012 [facility] [place] [facility] [address] [id number] [place] [address]69 16 Dec, 2012 [facility] [place] [facility] [address] [id number] [place] [address]792 16 Dec, 2012 [facility] [place] [facility] [address] [id number] [place] [address]678 16 Dec, 2012 [facility] [place] [facility] [address] [id number] [place] [address]76 16 Dec, 2012 [facility] [place] [facility] [address] [id number] [place] [address]- [address]85 14 Dec, 2012 [facility] [place] [facility] [address] [id number] [place] [address]- [address] 14 Dec, 2012 [facility] [place] [facility] [address] [id number] [place] [address] 10 Dec, 2012 [facility] [place] [facility] [address] [id number] [place] [address]- [address] 10 Dec, 2012 [facility] [place] [facility] [address] [id number] [place] [address]476 10 Dec, 2012 [facility] [place] [facility] [address] [id number] [place] [address]- [address]233 10 Dec, 2012 [facility] [place] [facility] [address] [id number] [place] [address] 03 Dec, 2012 [facility] [place] [facility] [address] [id number] [place] [address] 58[address] 25 Sep, 2012 [facility] [place] [facility] [address] [id number] [place] [address]- 7915 20 Sep, 2012 [facility] [place] [facility] [address] [id number] [place] [address]- 2661 18 Sep, 2012 [facility] [place] [facility] [address] [id number] [place] [address]- [address]190 16 Nov, 2012 [facility] [place] [facility] [address] [id number] [place] [address] 12 Nov, 2012 [facility] [place] [facility] [address] [id number] [place] [address]- [address]99 11 Nov, 2012 [facility] [place] [facility] [address] [id number] [place] [address]- [address]57 05 Nov, 2012 [facility] [place] [facility] [address] [id number] [place] [address] Oct, [facility] [place] [facility] [address] [id number] [place] [address]- [address] Oct, [facility] [place] [facility] [address] [id number] [place] [address]- 8200 24 Sep, 2012 [facility] [place] [facility] [address] [id number] [place] [address] Sep, [facility] [place] [facility] [address] [id number] [place] [address]- [address] Sep, [facility] [place] [facility] [address] [id number] [place] [address]- 68[address] Sep, [facility] [place] [facility] [address] [id number] [place] [address] Sep, [facility] [place] [facility] [address] [id number] [place] [address] 6183 Sep, [facility] [place] [facility] [address] [id number] [place] [address] 2414 Sep, [facility] [place] [facility] [address] [id number] [place] [address] Aug, [facility] [place] [facility] [address] [id number] [place] [address] Aug, [facility] [place] [facility] [address] [id number] [place] [address]- 1223 16 Aug, 2012 [facility] [place] [facility] [address] [id number] [place] [address]236 Aug, [facility] [place] [facility] [address] [id number] [place] [address]- 8426 Aug, [facility] [place] [facility] [address] [id number] [place] [address]- 2546 Aug, [facility] [place] [facility] [address] [id number] [place] [address] 2546 Aug, [facility] [place] [facility] [address] [id number] [place] [address]- [address]46 Aug, [facility] [place] [facility] [address] [id number] [place] [address]- [address] July, [facility] [place] [facility] [address] [id number] [place] [address] 25[address] July, [facility] [place] [facility] [address] [id number] [place] [address] 25[address] July, [facility] [place] [facility] [address] [id number] [place] [id number] July, [facility] [place] [facility] [address] [id number] [place] [address]- [address]476 July, [facility] [place] [facility] [address] [facility] [id number] [place] [address]- [address]046 Jun, [facility] [place] [facility] [address] [id number] [place] [address]- 2546 May, [facility] [place] [facility] [address] [id number] [place] [address]- 2546 May, [facility] [place] [facility] [address] [id number] [place] [address]- 2546 May, [facility] [place] [facility] [address] [id number] [place] [address]- [address]46 Apr, [facility] [place] [facility] [address] [id number] [place] [address]- [address]46 Apr, [facility] [place] [facility] [address] [id number] [place] [address]40 Apr, [facility] [place] [facility] [address] [id number] [place] [address] Mar, [facility] [address] [id number] [place] [address] Mar, [facility] [place] [facility] [address] [id number] [place] [address]- [address]704 Mar, [facility] [address] [id number] [place] [address] 69[address] Mar, [facility] [address] [id number] [place] [address]- [address] Mar, [facility] [place] [facility] [address] [id number] [place] [address]- 395[address] Mar, [facility] [place] [facility] [address] [id number] [place] [address]- [address]227 Mar, [facility] [place] [facility] [address] [id number] [place] [address]- 1636 Feb, [facility] [place] [facility] [address] [id number] [place] [address] Feb, [facility] [place] [facility] [address] [id number] [place] [address] Feb, [facility] [place] [facility] [address] [id number] [place] [address] Feb, [facility] [address] [id number] [place] [address] Feb, [facility] [address] [id number] [place] [address] Feb, [facility] [address] [id number] [place] [address] Feb, [facility] [address] [id number] [place] [address] Feb, [facility] [place] [facility] [address] [id number] [place] [address] Jan, [facility] [place] [facility] [address] [id number] [place] [address] Jan, [facility] [place] [facility] [address] [id number] [place] [address] Jan, [facility] [place] [facility] [address] [id number] [place] [address] Jan, [facility] [place] [facility] [address] [id number] [place] [address] Jan, [facility] [place] [facility] [address] [id number] [place] [address] 6209 Jan, [facility] [place] [facility] [address] [id number] [place] [address]- [address] Jan, [facility] [place] [facility] [address] [id number], [place] [address] Jan, [facility] [place] [facility] [address] [id number] [place] [address] 17[address] Jan, [facility] [place] [facility] [address] [id number], [place] [address] Jan, [facility] [place] [facility] [address] [id number], [place] [address] Jan, [facility] [place] [facility] [address] [id number], [place] [address] Jan, [facility] [place] [facility] [address] [id number], [place] [address] Jan, [facility] [place] [facility] [address] [id number], [place] [address] Jan, [facility] [place] [facility] [address] [facility] [id number], [place] [address]- [address] Jan, [facility] [place] [facility] [address] [id number], [place] [address] Jan, [facility] [place] [facility] [address] [id number] [place] [address]- 3969 Dec, [facility] [place] [facility] [address] [id number] [place] [address]- 1741 Dec, [facility] [place] [facility] [address] [facility] [id number] [place] [address]- [address]201 Dec, [facility] [place] [facility] [address] [id number] [place] [address] 16 Dec, 2011 [facility] [place] [facility] [address] [id number] [place] [address]- 4394 Dec, [facility] [place] [facility] [address] [id number] [place] [address]- 1202 Dec, [facility] [place] [facility] [address] [facility] [id number] [place] [address]- 59[address] Dec, [facility] [place] [facility] [address] [id number] [place] [address]- [address] Dec, [facility] [place] [facility] [address] [id number] [address] Dec, [facility] [place] [facility] [address] [facility] [id number] [place] [address]- 5963 05 Dec, 2011 [facility] [place] [facility] [address] [id number] [place] [address] 18 Nov, 2011 [facility] [place] [facility] [address] [id number], [place] [address]- [address] 13 Nov, 2011 [facility] [place] [facility] [address] [id number] [place] [address]- 1691 24 Oct, 2011 [facility] [place] [facility] [address] [facility] [id number] [place] [address]- [address]234 Oct, [facility] [place] [facility] [address] [facility] [id number] [place] [address]- 8090 Oct, [facility] [place] [facility] [address] [id number] [place] [address]- 68[address] 16 Oct, 2011 [facility] [place] [facility] [address] [id number] [place] [address]- 6565 Oct, [facility] [place] [facility] [address] [id number] [place] [address] Oct, [facility] [place] [facility] [address] [id number] [place] [address] 8619 Oct, [facility] [place] [facility] [address] [id number] [place] [address] 9146 Sep, [facility] [place] [facility] [address] [id number] [place] [address]- 5444 Aug, [facility] [place] [facility] [address] [id number] [place] [address]- 0205 Aug, [facility] [place] [facility] [address] [id number] [place] [address]- 5746 Aug, [facility] [place] [facility] [address] [id number] [place] [address]- 0980 Aug, [facility] [place] [facility] [address] [id number] [place] [address] 3339 Aug, [facility] [place] [facility] [address] [id number] [place] [address] 4848 July, [facility] [place] [facility] [address] [id number] [place] [address]- 5259 July, [facility] [place] [facility] [address] [id number] [place] [address]- 7914 July, [facility] [place] [facility] [address] [id number] [place] [address]- 6965 Jun, [facility] [place] [facility] [address] [id number] [place] [address]- 4256 Jun, [facility] [place] [facility] [address] [id number] [place] [address]- 3825 Jun, [facility] [place] [facility] [address] [id number] [place] [address]- 5298 Jun, [facility] [place] [facility] [address] [id number] [place] [address]- 6116 30 May, 2011 [facility] [place] [facility] [address] [id number] [place] [address]- 8275 30 May, 2011 [facility] [place] [facility] [address] [id number] [place] [address]- 5975 29 May, 2011 [facility] [place] [facility] [address] [id number] [place] [address]- 4417 28 May, 2011 [facility] [place] [facility] [address] [id number] [place] [address]- 1549 May, [facility] [place] [facility] [address] [id number] [place] [address]- 9294 May, [facility] [place] [facility] [address] [id number] [place] [address]- 8194 May, [facility] [place] [facility] [address] [id number] [place] [address]- 1134 May, [facility] [place] [facility] [address] [id number] [place] [address]- 8263 May, [facility] [place] [facility] [address] [id number] [place] [address]- 9305 05 May, 2011 [facility] [place] [facility] [address] [id number] [place] [address]- 3647 May, [facility] [place] [facility] [address] [id number] [place] [address]- 5664 May, [facility] [place] [facility] [address] [id number] [place] [address]- 6920 Mar, [facility] [place] [facility] [address] [id number] [place] [address]- 5246 Mar, [facility] [place] [facility] [address] [id number] [place] [address]- 0978 28 Feb, 2011 [facility] [place] [facility] [address] [id number] [place] [address]- 7421 20 Feb, 2011 [facility] [place] [facility] [address] [id number] [place] [address]- 0086 20 Feb, 2011 [facility] [place] [facility] [address] [id number] [place] [address]- 6366 15 Feb, 2011 [facility] [place] [facility] [address] [id number] [place] [address]- 1929 13 Feb, 2011 [facility] [place] [facility] [address] [id number] [place] [address]- 6310 13 Feb, 2011 [facility] [place] [facility] [address] [id number] [place] [address]- 9367 13 Feb, 2011 [facility] [place] [facility] [address] [id number] [place] [address]- 5502 28 Jan, 2011 [facility] [place] [facility] [address] [id number] [place] [address]- 0852 23 Jan, 2011 [facility] [place] [facility] [address] [id number] [place] [address]- 1775 22 Jan, 2011 [facility] [place] [facility] [address] [facility] [id number] [place] [address]- 3289 17 Jan, 2011 [facility] [place] [facility] [address] [id number] [place] [address]- 4451 07 Jan, 2011 [facility] [place] [facility] [address] [id number] [place] [address]- 6278 Jan, [facility] [place] [facility] [address] [id number] [place] [address]- 0970 27 Dec, 2010 [facility] [place] [facility] [address] [id number] [place] [address]- 3109 Dec, [facility] [place] [facility] [address] [id number], [place] [address]351 Dec, [facility] [place] [facility] [address] [id number] [place] [address]- 5347 July, [facility] [place] [facility] [address] [id number] [place] [address]- 8686 July, [facility] [place] [facility] [address] [id number] [place] [address]- 0780 Feb, [facility] [place] [facility] [address] [id number] [place] [address], [place] [address]- 6939 Jan, [facility] [place] [facility] [address] [id number] [place] [address]- 9721 Dec, [facility] [place] [facility] [address] [id number] [place] [address]- 7756 Dec, [facility] [place] [facility] [address] [id number] [place] [address]- 1656 Sep, [facility] [place] [facility] [address] [id number] [place] [address]- 2774 Aug, [facility] [place] [facility] [address] [id number] [place] [address]- 1822 Jun, [facility] [place] [facility] [address] [id number] [place] [address]- 9885 Jun, [facility] [place] [facility] [address] [id number] [place] [address]- 7582 Jan, [facility] [place] [facility] [address] [id number], [place] [address]- 7075 Jan, [facility] [place] [facility] [address] [id number] [place] [address]- 8156 Jan, [facility] [place] [facility] [address] [id number] [place] [address]- 9682 Jan, [facility] [place] [facility] [address] [id number] [place] [address]- 2381 29 Dec, 2008 [facility] [place] [facility] [address] [id number], [place] [address]- [address]46 Dec, [facility] [address] [facility] [id number], [place] [address]- 8296 Dec, [facility] [address] [id number], [place] [address] 2546 Nov, [facility] [address] [id number], [place] [address] 2546 July, [facility] [id number], [place] [address] 2546 May, [facility] [address] [id number], [place] [address]- 9773 Apr, [facility] [id number], [place] [address]- 7706 Feb, [facility] [address] [id number], [place] [address] 5006 Dec, IMMUNIZATIONS No Known Immunizations SOCIAL HISTORY Never Assessed REASON FOR VISIT f/u PLAN OF CARE Activity Details Follow Up 1 Week Reason: VITAL SIGNS MEDICATIONS Unknown Medications RESULTS No Results PROCEDURES Procedure Date Ordered Result Body Site Psychotherapy, patient &/family, 30 minutes, established patient July 13, 2017 INSTRUCTIONS MEDICATIONS ADMINISTERED No Known Medications [...] History back surgery Laminectomy - Ortho 4 [facility] 10/04/2014 Surgical History Pain shot in lower back -Dr. Sheehan 08/23/15 Hospitalization History surgery
--- OUTSIDE RECORDS SUMMARY | 2018-06-14 14:46 | XMS REPORT ---
Author Author ARIAN US Organization [facility] Address [address] [place] [address] Care Team Providers Care Shoemaker Custom Name Role Phone ARIAN US Unavailable PROBLEMS Type Condition ICD9-CM Code WIH59-XC Code Onset Dates Condition Status SNOMED Code Problem Diabetes E11.9 Active 036049918 Problem Lumbar radiculopathy M54.16 Active 193075412 Problem Irritable bowel syndrome with diarrhea K58.0 Active 783588267 Problem New daily persistent headache G44.52 Active 671247383 Problem Acute bilateral low back pain with right-sided sciatica M54.41 Active 182446448 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 Active 566854372 Problem Bipolar 1 disorder F31.9 Active 696120270 Problem Hyperlipidemia, unspecified E78.5 Active 65666504 Problem Type 2 diabetes mellitus with complication E11.8 Active 044491891 Problem Post laminectomy syndrome M96.1 Active 96169606 Problem Eye exam normal Z01.00 Active 435407868 Problem Bipolar disorder, in partial remission, most recent episode manic F31.73 Active 97652521 Problem Extreme poverty Z59.5 Active 21100968 Problem Obesity, unspecified 278.00 Active 791733548 Problem 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 Active 20268472 Problem Hyperlipidemia 272.4 Active 09349768 Problem Non compliance with medical treatment Z91.19 Active 9433423 ALLERGIES No Information ENCOUNTERS Encounter Location Date Diagnosis [facility] [address] [address] Nov, [facility] [address] [address] Oct, [facility] [id number] [address] Oct, [facility] [id number] [place] [address] 29645- 0520 Oct, [facility] [id number] [place] [address] 46535- 1388 Sep, Diarrhea, unspecified R19.7 and Vomiting, unspecified R11.10 [facility] [id number] [place] [address] 53499- 6925 Aug, Type 2 diabetes mellitus with complication E11.8 [facility] [id number] [place] [address] 19705- 2553 Aug, [facility] [id number] [place] [address] 68192- 3582 Aug, Bipolar 1 disorder F31.9 ; 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 and Extreme poverty Z59.5 [facility] [id number] [place] [address] 78090- 8590 Aug, 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 and Bipolar disorder, in partial remission, most recent episode manic F31.73 [facility] [id number] [place] [address] 38535- 1199 Aug, Bipolar 1 disorder F31.9 [facility] [id number] [place] [address] 85412- 0780 Aug, [facility] [id number] [place] [address] 45820- 9007 Aug, [facility] [id number] [place] [address] 61039- 5403 Aug, Bipolar 1 disorder F31.9 ; 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 and Extreme poverty Z59.5 [facility] [id number] [place] [address] 84467- 0009 July, Type 2 diabetes mellitus with complication E11.8 [facility] [id number] [place] [address] 34035- 6754 July, Bipolar 1 disorder F31.9 ; 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 and Extreme poverty Z59.5 [facility] [id number] [place] [address] 43607- 2148 Jun, Bipolar 1 disorder F31.9 ; 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 and Extreme poverty Z59.5 [facility] [id number] [place] [address] 01912- 6898 Jun, Bipolar 1 disorder F31.9 ; 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 and Extreme poverty Z59.5 [facility] [id number] [place] [address] 59207- 1165 Jun, Bipolar 1 disorder F31.9 ; 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 and Extreme poverty Z59.5 [facility] [id number] [place] [address] 91004- 1477 May, Urinary tract infection without hematuria, site unspecified N39.0 [facility] [id number] [place] [address] 75934- 7781 May, Bipolar 1 disorder F31.9 ; 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 and Extreme poverty Z59.5 [facility] [facility] [address] 69788- 0598 Apr, Diabetes E11.9 and Breast cancer screening Z12.31 [facility] [id number] [place] [address] 69877- 9083 Apr, Bipolar 1 disorder F31.9 and 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 [facility] [id number] [place] [address] 26735- 3226 Mar, Bipolar 1 disorder F31.9 ; 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 and Extreme poverty Z59.5 [facility] [id number] [place] [address] 23574- 2879 Mar, New daily persistent headache G44.52 ; Leg pain 729.5 and History of carpal tunnel release Z98.890 [facility] [id number] [place] [address] 44584- 6706 Mar, Hyperlipidemia, unspecified E78.5 [facility] [id number] [place] [address] 11065- 7931 Mar, Bipolar 1 disorder F31.9 ; 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 and Extreme poverty Z59.5 [facility] [id number] [place] [address] 73001- 9965 Feb, Bipolar 1 disorder F31.9 ; 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 and Extreme poverty Z59.5 [facility] [id number] [place] [address] 50974- 4018 Feb, Diabetes E11.9 [facility] [id number] [place] [address] 79190- 7628 Feb, Viral syndrome B34.9 [id number] [place] [address] 70260- 8093 Jan, Other viral agents as the cause of diseases classified elsewhere B97.89 and Acute upper respiratory infection, unspecified J06.9 [facility] [id number] [place] [address] 02544- 9029 Jan, Bipolar 1 disorder F31.9 and 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 [facility] [id number] [place] [address] 05489- 2787 Jan, Bipolar 1 disorder F31.9 ; 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 and Extreme poverty Z59.5 [facility] [id number] [place] [address] 77317- 2963 Dec, Diabetes E11.9 [facility] [id number] [place] [address] 75812- 5448 Dec, Diabetes E11.9 and Encounter for immunization Z23 [facility] [facility] [id number] [place] [address] 05317- 4327 Dec, Bipolar 1 disorder F31.9 ; 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 and Extreme poverty Z59.5 [facility] [facility] [id number] [address] 1723 Dec, Back pain M54.9 [facility] [id number] [place] [address] 77075- 0028 Nov, [facility] [id number] [place] [address] 04959- 8061 Nov, Bipolar 1 disorder F31.9 ; 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 and Extreme poverty Z59.5 [facility] [id number] [place] [address] 87739- 8488 05 Nov, 2016 Bipolar 1 disorder F31.9 ; 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 and Extreme poverty Z59.5 [place] [id number] [place] [address] 93388- 3248 Oct, 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 and Bipolar 1 disorder F31.9 [facility] [id number] [place] [address] 31685- 5905 Oct, Bipolar 1 disorder F31.9 ; 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 and Extreme poverty Z59.5 [place] [id number] [place] [address] 32956- 0385 Oct, Back pain M54.9 [facility] [id number] [place] [address] 19364- 4728 Oct, 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 and Type 2 diabetes mellitus with complication E11.8 [facility] [facility] [id number] [place] [address] 69466- 9370 Sep, Bipolar 1 disorder F31.9 ; 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 and Extreme poverty Z59.5 [place] [id number] [place] [address] 97173- 3202 Sep, 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 and Bipolar 1 disorder F31.9 [facility] [id number] [place] [address] 36518- 8405 Sep, Bipolar 1 disorder F31.9 ; 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 and Extreme poverty Z59.5 [facility] [address] [address]- 0862 Aug, Diabetes E11.9 ; Hyperlipidemia, unspecified E78.5 and Lumbar radiculopathy M54.16 [facility] [address] [address] 7366 15 Aug, 2016 Bipolar 1 disorder F31.9 ; 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 and Extreme poverty Z59.5 [facility] [address] [address]- 8875 Aug, [facility] [id number] [place] [address] 64864- 2583 Aug, [facility] [id number] [place] [address] 20353- 5781 Aug, [facility] [id number] [place] [address] 14603- 8494 July, [facility] [id number] [place] [address] 69741- 9712 July, Acute bilateral low back pain with right-sided sciatica M54.41 [facility] [id number] [place] [address] 61360- 8136 July, Bipolar 1 disorder F31.9 ; 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 and Extreme poverty Z59.5 [place] [id number] [place] [address] 65400- 4397 July, Back pain M54.9 and Diabetes E11.9 [facility] [id number] [address]- 8341 Jun, Bipolar 1 disorder F31.9 ; 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 and Extreme poverty Z59.5 [facility] [id number] [place] [address] 78020- 3731 Jun, Bipolar 1 disorder F31.9 ; 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 and Extreme poverty Z59.5 [place] [id number] [place] [address] 91218- 8332 May, Visit for pelvic exam Z01.419 ; Acute vaginitis N76.0 and Diabetes E11.9 [place] [facility] [id number] [place] [address] 25804- 1787 16 May, 2016 Bipolar 1 disorder F31.9 ; 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 and Extreme poverty Z59.5 [place] [address] 27418- 1178 May, [place] [address] 71786- 0316 May, [place] [id number] [place] [address] 44067- 0320 May, Bipolar 1 disorder F31.9 ; 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 and Extreme poverty Z59.5 [place] [address] 71813- 9747 May, Hyperlipidemia, unspecified E78.5 [place] [address] 79831- 6223 Apr, Breast cancer screening Z12.39 [facility] [facility] [id number] [place] [address] 22946- 5209 Mar, [place] [id number] [place] [address] 50857- 0975 Mar, Bipolar disorder, current episode mixed, unspecified F31.60 [place] [id number] [place] [address] 69002- 9245 Mar, Bipolar 1 disorder F31.9 ; 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 and Extreme poverty Z59.5 [place] [id number] [place] [address] 48379- 2399 Feb, Acute nasopharyngitis J00 [place] [address] 78890- 9312 27 Feb, 2016 Dental examination Z01.20 [facility] [facility] [id number] [place] [address] 29272- 8271 21 Feb, 2016 Dental cavities K02.9 and Chronic periodontitis, unspecified K05.30 [place] [id number] [place] [address] 39068- 8103 13 Feb, 2016 Low back pain M54.5 and Extreme poverty Z59.5 [place] [id number] [place] [address] 82539- 1533 08 Feb, 2016 [place] [id number] [place] [address] 24412- 8928 05 Feb, 2016 Routine gynecological examination V72.31 ; Breast cancer screening Z12.39 and Herpes simplex type 1 infection B00.9 [id number] [place] [address] 96645- 4657 02 Feb, 2016 Diabetes E11.9 [place] [id number] [place] [address] 81622- 1105 01 Feb, 2016 Encounter for dental examination and cleaning without abnormal findings Z01.20 [place] [id number] [place] [address] 75511- 5539 22 Jan, 2016 Hyperlipidemia, unspecified E78.5 [place] [id number] [place] [address] 42511- 1561 22 Jan, 2016 Bipolar 1 disorder F31.9 ; 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 and Extreme poverty Z59.5 [place] [id number] [place] [address] 44631- 9050 18 Jan, 2016 Diabetes E11.9 [place] [id number] [place] [address] 00341- 8019 17 Jan, 2016 Diabetes E11.9 [place] [id number] [place] [address] 06345- 0903 14 Dec, 2015 Bipolar 1 disorder F31.9 ; 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 and Extreme poverty Z59.5 [place] [id number] [place] [address] 47593- 7240 Dec, Bipolar disorder, current episode mixed, unspecified F31.60 and 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 [place] [id number] [place] [address] 38009- 2901 16 Nov, 2015 Bipolar 1 disorder F31.9 ; 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 ; Extreme poverty Z59.5 and Non compliance with medical treatment Z91.19 [place] [id number] [place] [address] 32563- 7483 Oct, [place] [address] 07557- 6160 Oct, Dental caries K02.9 [place] [id number] [place] [address] 29091- 8638 Oct, Low back pain M54.5 and Other chronic pain G89.29 [place] [id number] [place] [address] 72378- 6679 Oct, Bipolar 1 disorder F31.9 ; 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 ; Extreme poverty Z59.5 and Non compliance with medical treatment Z91.19 [place] [id number] [place] [address] 76886- 9936 Oct, [place] [id number] [place] [address] 08662- 8111 Oct, [place] [id number] [place] [address] 22073- 7246 Oct, Dental examination Z01.20 [place] [id number] [place] [address] 70588- 9863 Oct, Bipolar 1 disorder F31.9 ; 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 ; Extreme poverty Z59.5 and Non compliance with medical treatment Z91.19 [place] [id number] [place] [address] 02820- 1690 Oct, [place] [address] [address]- 3949 Sep, Type 2 diabetes mellitus with complication E11.8 [place] [address] [address]- 5949 Sep, Bipolar disorder, current episode mixed, unspecified F31.60 [place] [address] [address]- 5148 Sep, Bipolar disorder, current episode mixed, unspecified F31.60 [place] [id number] [place] [address] 47253- 7492 Sep, Bipolar disorder, in partial remission, most recent episode manic F31.73 ; 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 ; Extreme poverty Z59.5 and Non compliance with medical treatment Z91.19 [place] [address] [address]- 6472 Aug, Bipolar disorder, in partial remission, most recent episode manic F31.73 ; 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 ; Extreme poverty Z59.5 and Non compliance with medical treatment Z91.19 [place] [address] [address]- 0447 Aug, Bipolar disorder, in partial remission, most recent episode manic F31.73 ; 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 ; Extreme poverty Z59.5 and Non compliance with medical treatment Z91.19 [place] [address] [address]- 3961 Aug, [place] [address] [address]- 6568 July, Bipolar disorder, in partial remission, most recent episode manic F31.73 ; 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 ; Extreme poverty Z59.5 and Non compliance with medical treatment Z91.19 [place] [id number] [address]- 4091 July, Bipolar disorder, current episode mixed, unspecified F31.60 [place] [address] [address]- 8806 July, Bipolar disorder, in partial remission, most recent episode manic F31.73 ; 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 ; Extreme poverty Z59.5 and Non compliance with medical treatment Z91.19 [place] [id number] [place] [address] 08844- 5124 July, 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 and Chronic pain G89.29 [place] [id number] [place] [address] 68500- 4133 Jun, half-way current 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 Z79.891 and Bipolar 1 disorder F31.9 [place] [id number] [place] [address] 39591- 6905 Jun, [place] [id number] [place] [address] 03610- 0770 Jun, [place] [id number] [place] [address] 79754- 0144 Jun, [place] [id number] [place] [address] 37945- 9064 Jun, Bipolar disorder, in partial remission, most recent episode manic F31.73 ; 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 and Non compliance with medical treatment Z91.19 [place] [id number] [place] [address] 70533- 1824 May, Bipolar disorder, in partial remission, most recent episode manic F31.73 ; 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73 ; Non compliance with medical treatment Z91.19 and 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 [place] [id number] [place] [address] 96952- 3085 May, Type 2 diabetes mellitus with complication E11.8 and Back pain M54.9 [place] [id number] [place] [address] 82035- 8569 May, Bipolar disorder, in partial remission, most recent episode manic F31.73 and 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 [place] [id number] [place] [address] 10222- 2675 Apr, [place] [id number] [place] [address] 03205- 3677 Apr, [place] [id number] [place] [address] 40435- 3600 Apr, [place] [id number] [place] [address] 55353- 0406 09 Apr, 2015 Diabetes E11.9 ; Irritable bowel syndrome with diarrhea K58.0 and Lumbar radiculopathy M54.16 [place] [id number] [place] [address] 49820- 6847 Apr, Breast screening Z12.39 [place] [id number] [place] [address] 05640- 0947 Apr, Bipolar disorder, in partial remission, most recent episode manic F31.73 ; Non compliance with medical treatment Z91.19 and 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 [place] [id number] [place] [address] 23715- 2108 Mar, Edema, unspecified type R60.9 and Type 2 diabetes mellitus with complication E11.8 [place] [id number] [place] [address] 53514- 6197 Mar, Bipolar disorder, in partial remission, most recent episode manic F31.73 ; Non compliance with medical treatment Z91.19 ; 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 and Extreme poverty Z59.5 [place] [id number] [place] [address] 11251- 0415 Mar, Bipolar disorder, current episode mixed, unspecified F31.60 ; 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 ; Extreme poverty Z59.5 and Generalized anxiety disorder F41.1 [place] [address] 17110- 7691 Mar, Bipolar disorder, in partial remission, most recent episode manic F31.73 ; 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 and Extreme poverty Z59.5 [place] [address] 07306- 1936 Feb, Bipolar disorder, in partial remission, most recent episode manic F31.73 ; 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 and Extreme poverty Z59.5 [place] [id number] [place] [address] 79073- 0953 Feb, Bipolar disorder, in partial remission, most recent episode manic F31.73 ; 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 and Extreme poverty Z59.5 [place] [id number] [place] [address] 36783- 8530 Feb, [place] [id number] [place] [address] 53033- 8296 Jan, Type 2 diabetes mellitus with complication E11.8 and Petechiae R23.3 [place] [id number] [place] [address] 60048- 0724 Jan, Type 2 diabetes mellitus with complication E11.8 ; Edema, unspecified R60.9 ; Petechiae R23.3 and Diabetes E11.9 [place] [id number] [place] [address]- 2546 Jan, Bipolar disorder, in partial remission, most recent episode manic F31.73 ; 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 and Extreme poverty Z59.5 [place] [id number] [place] [address] 88142- 5874 Jan, Bipolar disorder, in partial remission, most recent episode manic F31.73 ; 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 and Extreme poverty Z59.5 [place] [id number] [place] [address] 39202- 4521 Dec, Bipolar disorder, in partial remission, most recent episode manic F31.73 [place] [address] 50798- 0559 Dec, Edema, due to unspecified malnutrition type, unspecified edema R60.9 and Essential hypertension I10 [id number] [place] [address] 15885- 0298 Dec, Bipolar disorder, in partial remission, most recent episode manic F31.73 [place] [id number] [place] [id number] Nov, Bipolar I disorder, most recent episode (or current) mixed, unspecified 296.60 [place] [address] [address] [place] [id number] [place] [id number] Nov, Stress incontinence, female 625.6 ; Back pain 724.5 and Leg pain 729.5 [place] [address] [address] [place] [id number] [place] [id number] Nov, Generalized anxiety disorder 300.02 and Bipolar II disorder 296.89 [place] [address] [address] [place] [id number] [place] [id number] Nov, Bipolar I disorder, most recent episode (or current) mixed, unspecified 296.60 [place] [id number] [place] [address] 65848- 7879 Oct, [address] [address] [address] Oct, [facility] [place] [id number] [address] 9982 Oct, [facility] [place] [id number] [address] Oct, Bipolar I disorder, most recent episode (or current) mixed, unspecified 296.60 [facility] [place] [id number] [place] [address] 72367- 1273 Sep, Diabetes 250.00 [facility] [place] [id number] [place] [address] 51882- 1191 Sep, Bipolar I disorder, most recent episode (or current) mixed, unspecified 296.60 [facility] [place] [id number] [place] [address] 075948- 5136 Sep, [facility] [place] [id number] [place] [address] 48830- 1219 Sep, [facility] [place] [id number] [address] [address] Sep, Bipolar I disorder, most recent episode (or current) mixed, unspecified 296.60 [facility] [place] [id number] [address]- 6110 Sep, Bipolar I disorder, most recent episode (or current) mixed, unspecified 296.60 [facility] [place] [id number] [id number]- 7843 Sep, [facility] [place] [id number] [address]- 6923 Sep, Anxiety 300.00 ; Diabetes 250.00 and Hyperlipidemia 272.4 [facility] [place] [id number] 3563 Aug, [facility] [place] [id number] 8[address] Aug, [facility] [place] [id number] [id number] 9012 Aug, [facility] [place] [id number] [place] [address] 652755- 4558 Aug, Bipolar I disorder, most recent episode (or current) mixed, unspecified 296.60 [facility] [place] [id number] [place] [address] 231166- 6736 Aug, Generalized anxiety disorder 300.02 and Bipolar II disorder 296.89 [facility] [place] [id number] [place] [address] 72635- 8013 July, Bipolar I disorder, most recent episode (or current) mixed, unspecified 296.60 [facility] [place] [id number] [place] [address] 63579- 6894 July, Cough 786.2 [facility] [place] [id number] [place] [address] 39895- 5921 July, Bipolar I disorder, most recent episode (or current) mixed, unspecified 296.60 [facility] [place] [id number] [address]- 9688 30 Jun, 2014 Diabetes 250.00 [facility] [place] [id number] [place] [address] 93760- 0233 14 Jun, 2014 [facility] [place] [id number] [address]- 0402 Jun, [facility] [place] [id number] [address]- 5486 May, [facility] [place] [id number] [address]- 0691 May, [facility] [place] [id number] 2151 May, [facility] [place] [id number] 2365 May, [facility] [place] [id number] [place] [address] 49849- 2512 May, [facility] [place] [facility] [address] [id number] [place] [address]- 8816 May, [facility] [place] [facility] [address] [id number] [place] [address]- 5326 Apr, 2014 [facility] [place] [facility] [address] [id number] [place] [address]- 2586 Apr, 2014 [facility] [place] [facility] [address] [id number] [place] [address]- 9040 Apr, 2014 [facility] [place] [facility] [address] [id number] [place] [address]- 6456 Apr, 2014 [facility] [place] [facility] [address] [id number] [place] [address]- 2546 Apr, 2014 [facility] [place] [facility] [address] [facility] [id number] [place] [address]- 9226 Apr, 2014 [facility] [place] [facility] [address] [facility] [id number] [place] [address]- 2572 Apr, [facility] [place] [facility] [address] [facility] [id number] [place] [address]- 4989 Apr, [facility] [place] [facility] [address] [facility] [id number] [place] [address]- 2889 Mar, [facility] [place] [facility] [address] [id number] [place] [address] 2540 Mar, [facility] [place] [facility] [address] [id number] [place] [address]- 2544 Mar, [facility] [place] [facility] [address] [id number] [place] [address]- 0054 Mar, [facility] [place] [facility] [address] [facility] [id number] [place] [address]- 7868 Mar, [facility] [place] [facility] [address] [facility] [id number] [place] [address]- 6028 Mar, [facility] [place] [facility] [address] [id number] [place] [address]- 7140 Mar, [facility] [place] [facility] [address] [id number] [place] [address]- 1249 Mar, [facility] [place] [facility] [address] [id number] [place] [address]- 4741 Feb, [facility] [place] [facility] [address] [id number] [place] [address]- 7581 Feb, [facility] [place] [facility] [address] [id number] [place] [address]- 9265 Feb, [facility] [place] [facility] [address] [id number] [place] [address]- 6219 Feb, [facility] [place] [facility] [address] [id number] [place] [address]- 9625 Feb, [facility] [place] [facility] [address] [id number] [place] [address]- 6693 Feb, [facility] [place] [facility] [address] [id number] [place] [address]- 4295 Feb, [facility] [place] [facility] [address] [id number] [place] [address]- 7982 Feb, [facility] [place] [facility] [address] [id number] [place] [address]- 1967 Feb, [facility] [place] [facility] [address] [id number] [address]- 4713 Feb, [facility] [place] [facility] [address] [id number] [place] [address]- 2505 Jan, [facility] [place] [facility] [address] [id number] [place] [address]- 3546 Jan, [facility] [place] [facility] [address] [id number] [place] [address]- 0674 Jan, [facility] [place] [facility] [address] [id number] [address]- 7324 Jan, [facility] [place] [facility] [address] [id number] [place] [address]- 2791 Jan, [facility] [place] [facility] [address] [id number] [place] [address]- 3026 Jan, [facility] [place] [facility] [address] [id number] [place] [address]- 3943 Jan, [facility] [place] [facility] [address] [id number] [place] [address]- 0107 Jan, [facility] [place] [facility] [address] [id number] [place] [address]- 5439 Jan, [facility] [place] [facility] [address] [id number] [place] [address]- 2666 Jan, [facility] [place] [facility] [address] [facility] [id number] [place] [address]- 1083 Jan, [facility] [place] [facility] [address] [id number] [place] [address]- 6889 Jan, [facility] [place] [facility] [address] [id number] [place] [address]- 5030 Jan, [facility] [place] [facility] [address] [facility] [id number] [place] [address]- 0581 Jan, [facility] [place] [facility] [address] [id number] [address]- 3679 Jan, [facility] [place] [facility] [address] [id number] [address]- 9056 Dec, [facility] [place] [facility] [address] [id number] [place] [address]- 5394 Dec, [facility] [place] [facility] [address] [facility] [id number] [place] [address]- 9517 Dec, [facility] [place] [facility] [address] [facility] [id number] [address]- 1398 Dec, [facility] [place] [facility] [address] [id number] [place] [address]- 0265 09 Dec, 2013 [facility] [place] [facility] [address] [id number] [place] [address]- 2889 09 Dec, 2013 [facility] [place] [facility] [address] [id number] [place] [address]- 2376 07 Dec, 2013 [facility] [place] [facility] [address] [id number] [place] [address]- 0710 07 Dec, 2013 [facility] [place] [facility] [address] [id number] [place] [address]- 3116 25 Sep, 2013 [facility] [place] [facility] [address] [id number] [place] [address]- 9806 25 Sep, 2013 [facility] [place] [facility] [address] [id number] [place] [address]- 2816 10 Nov, 2013 [facility] [place] [facility] [address] [id number] [place] [address]- 5232 10 Sep, 2013 [facility] [place] [facility] [address] [id number] [place] [address] 2545 08 Sep, 2013 [facility] [place] [facility] [address] [id number] [place] [address] 2541 08 Sep, 2013 [facility] [place] [facility] [address] [id number] [place] [address] 2549 08 Sep, 2013 [facility] [place] [facility] [address] [id number] [place] [address]- 2547 08 Sep, 2013 [facility] [place] [facility] [address] [id number] [place] [address] 2546 08 Sep, 2013 [facility] [place] [facility] [address] [id number] [place] [address] 2546 08 Sep, 2013 [facility] [place] [facility] [address] [id number] [place] [address]- 2546 04 Sep, 2013 [facility] [place] [facility] [address] [id number] [place] [address]- 2625 Nov, [facility] [place] [facility] [address] [id number] [place] [address]- 5214 Nov, [facility] [place] [facility] [address] [id number] [place] [address]- 3466 Nov, [facility] [place] [facility] [address] [id number] [place] [address]- 6996 Nov, [facility] [place] [facility] [address] [id number] [place] [address]- 4714 Oct, [facility] [place] [facility] [address] [id number] [place] [address]- 7888 Oct, [facility] [place] [facility] [address] [id number] [place] [address]- 6118 Oct, [facility] [place] [facility] [address] [id number] [place] [address]- 7163 Oct, [facility] [place] [facility] [address] [id number] [place] [address]- 6636 Oct, [facility] [place] [facility] [address] [id number] [place] [address]- 9441 Oct, [facility] [place] [facility] [address] [id number] [place] [address]- 2849 Oct, [facility] [place] [facility] [address] [id number] [place] [address]- 4078 Oct, [facility] [place] [facility] [address] [id number] [place] [address]- 2724 Oct, [facility] [place] [facility] [address] [id number] [place] [address]- 8684 Oct, [facility] [place] [facility] [address] [id number] [place] [address]- 8705 Oct, [facility] [place] [facility] [address] [id number] [place] [address]- 2464 Oct, [facility] [place] [facility] [address] [id number] [place] [address]- 9147 Oct, [facility] [place] [facility] [address] [id number] [place] [address]- 9676 Oct, [facility] [place] [facility] [address] [id number] [place] [address]- 9486 Sep, [facility] [place] [facility] [address] [id number] [place] [address]- 7774 Sep, [facility] [place] [facility] [address] [id number] [place] [address]- 1763 Sep, [facility] [place] [facility] [address] [id number] [place] [address]- 7904 Sep, [facility] [place] [facility] [address] [id number] [place] [address]- 9307 Sep, [facility] [place] [facility] [address] [id number] [place] [address]- 0103 Sep, [facility] [place] [facility] [address] [id number] [place] [address]- 8164 Sep, [facility] [place] [facility] [address] [id number] [place] [address]- 6742 Sep, [facility] [place] [facility] [address] [id number] [place] [address]- 7129 Aug, [facility] [place] [facility] [address] [id number] [place] [address]- 1997 Aug, [facility] [place] [facility] [address] [id number] [place] [address]- 8363 Aug, [facility] [place] [facility] [address] [id number] [place] [address]- 7967 Aug, [facility] [place] [facility] [address] [id number] [place] [address]- 6014 Aug, [facility] [place] [facility] [address] [id number] [place] [address]- 3113 Aug, [facility] [place] [facility] [address] [id number] [place] [address]- 0849 Aug, [facility] [place] [facility] [address] [id number] [place] [address]- 5820 Aug, [facility] [place] [facility] [address] [id number] [place] [address]- 8233 July, [facility] [place] [facility] [address] [id number] [place] [address]- 7378 July, [facility] [place] [facility] [address] [id number] [place] [address]- 7396 July, [facility] [place] [facility] [address] [id number] [place] [address]- 8356 July, [facility] [place] [facility] [address] [id number] [place] [address]- 6270 July, [facility] [place] [facility] [address] [id number] [place] [address]- 0976 July, [facility] [place] [facility] [address] [id number] [place] [address]- 1439 July, [facility] [place] [facility] [address] [id number] [place] [address]- 1641 July, [facility] [place] [facility] [address] [id number] [place] [address]- 5493 Jun, [facility] [place] [facility] [address] [id number] [place] [address]- 5674 Jun, [facility] [place] [facility] [address] [id number] [place] [address]- 0854 Jun, [facility] [place] [facility] [address] [id number] [place] [address]- 3667 Jun, [facility] [place] [facility] [address] [id number] [place] [address]- 3284 Jun, [facility] [place] [facility] [address] [id number] [place] [address]- 0005 Jun, [facility] [place] [facility] [address] [id number] [place] [address]- 9520 Jun, [facility] [place] [facility] [address] [id number] [place] [address]- 9589 Jun, [facility] [place] [facility] [address] [id number] [place] [address]- 5639 Jun, [facility] [place] [facility] [address] [id number] [place] [address]- 3596 Jun, [facility] [place] [facility] [address] [id number] [place] [address]- 0183 Jun, [facility] [place] [facility] [address] [id number] [place] [address]- 2868 Jun, [facility] [place] [facility] [address] [id number] [place] [address]- 4070 May, [facility] [place] [facility] [address] [id number] [place] [address]- 4613 May, [facility] [place] [facility] [address] [id number] [place] [address]- 1689 May, [facility] [place] [facility] [address] [id number] [place] [address]- 8246 May, [facility] [place] [facility] [address] [id number] [place] [address]- 7778 May, [facility] [place] [facility] [address] [id number] [place] [address]- 6099 May, [facility] [place] [facility] [address] [id number] [place] [address]- 4487 May, [facility] [place] [facility] [address] [id number] [place] [address]- 4525 May, [facility] [place] [facility] [address] [id number] [place] [address]- 1893 May, [facility] [place] [facility] [address] [id number] [place] [address]- 8453 11 May, 2013 [facility] [place] [facility] [address] [id number] [place] [address]- 4912 May, [facility] [place] [facility] [address] [id number] [place] [address]- 2436 May, [facility] [place] [facility] [address] [id number] [place] [address]- 7786 May, [facility] [place] [facility] [address] [id number] [place] [address]- 5896 May, [facility] [place] [facility] [address] [id number] [place] [address]- 7181 Apr, [facility] [place] [facility] [address] [id number] [place] [address]- 8417 Apr, [facility] [place] [facility] [address] [id number] [place] [address]- 8044 Apr, [facility] [place] [facility] [address] [id number] [place] [address]- 7038 Apr, [facility] [place] [facility] [address] [id number] [place] [address]- 8181 Apr, [facility] [place] [facility] [address] [facility] [id number] [place] [address]- 5912 Apr, [facility] [place] [facility] [address] [id number] [place] [address]- 8072 Mar, [facility] [place] [facility] [address] [id number] [place] [address]- 6800 Mar, [facility] [place] [facility] [address] [id number] [place] [address]- 5275 Mar, [facility] [place] [facility] [address] [id number] [place] [address]- 6587 Mar, [facility] [place] [facility] [address] [id number] [place] [address]- 4924 Mar, [facility] [address] [id number] [place] [address]- 6767 Mar, [facility] [place] [facility] [address] [id number] [place] [address]- 4341 Mar, [facility] [place] [facility] [address] [id number] [place] [address]- 3875 Mar, [facility] [place] [facility] [address] [id number] [place] [address]- 7842 Mar, [facility] [place] [facility] [address] [id number] [place] [address]- 3091 Mar, [facility] [place] [facility] [address] [id number] [place] [address]- 7242 Mar, [facility] [place] [facility] [address] [id number] [place] [address]- 2969 Mar, [facility] [place] [facility] [address] [id number] [place] [address]- 3947 Mar, [facility] [place] [facility] [address] [id number] [place] [address]- 9189 Mar, [facility] [place] [facility] [address] [id number] [place] [address]- 9553 Feb, [facility] [place] [facility] [address] [id number] [address]- 0493 Feb, [facility] [place] [facility] [address] [id number] [address]- 5675 30 Feb, 2013 [facility] [place] [facility] [address] [id number] [place] [address]- 5118 Feb, [facility] [place] [facility] [address] [id number] [place] [address]- 8771 Feb, [facility] [place] [facility] [address] [id number] [place] [address]- 7318 Feb, [facility] [place] [facility] [address] [id number] [place] 5403 12 Feb, 2012 [facility] [address] [id number] [place] 6659 Feb, 2012 [facility] [place] [facility] [address] [id number] [place] 9499 Feb, 2012 [facility] [address] [id number] [place] [address]- 3859 Feb, 2012 [facility] [place] [facility] [address] [id number] [place] [address]- 8617 Feb, 2012 [facility] [address] [id number] [place] [address] Feb, 2012 [facility] [place] [facility] [address] [id number] [place] [address] Feb, [facility] [address] [id number] [place] [address] Feb, 2012 [facility] [place] [facility] [address] [id number] [place] [address] Feb, [facility] [place] [facility] [address] [id number] [place] [address] Feb, 2012 [facility] [address] [facility] [id number] [place] [address] Dec, [facility] [place] [facility] [address] [id number] [place] [address] 24 Dec, 2012 [facility] [place] [facility] [address] [id number] [address] Dec, [facility] [place] [facility] [address] [id number] [place] [address] Dec, 2012 [facility] [place] [facility] [address] [facility] [id number] [place] [address] Dec, 2012 [facility] [place] [facility] [address] [id number] [address] Dec, 2012 [facility] [place] [facility] [address] [id number] [place] [address] 14 Dec, 2012 [facility] [place] [facility] [address] [id number] [place] [address] 14 Dec, 2012 [facility] [place] [facility] [address] [id number] [place] [address] 1584 10 Dec, 2012 [facility] [place] [facility] [address] [id number] [place] [address] 3232 10 Dec, 2012 [facility] [place] [facility] [address] [id number] [place] [address] 10 Dec, 2012 [facility] [place] [facility] [address] [id number] [place] [address] 4717 10 Dec, 2012 [facility] [place] [facility] [address] [id number] [place] [address]- 48[address] 03 Dec, 2012 [facility] [place] [facility] [address] [id number] [place] [address]6 25 Nov, 2012 [facility] [place] [facility] [address] [id number] [place] [address] 1170 20 Nov, 2012 [facility] [place] [facility] [address] [id number] [place] [address]- 4[address] 18 Nov, 2012 [facility] [place] [facility] [address] [id number] [place] [address] 2308 16 Nov, 2012 [facility] [place] [facility] [address] [id number] [address] 12 Nov, 2012 [facility] [place] [facility] [address] [id number] [place] [address]- 5579 11 Nov, 2012 [facility] [place] [facility] [address] [id number] [place] [address]- 5688 05 Nov, 2012 [facility] [place] [facility] [address] [id number] [place] [address]80 15 Oct, 2012 [facility] [place] [facility] [address] [id number] [place] [address]- 1525 Oct, [facility] [place] [facility] [address] [id number] [place] [address]- 8966 24 Sep, 2012 [facility] [place] [facility] [address] [id number] [place] [address] 90[address] Sep, [facility] [place] [facility] [address] [id number] [place] [address]109 Sep, [facility] [place] [facility] [address] [id number] [place] [address] 5729 17 Sep, 2012 [facility] [place] [facility] [address] [id number] [place] [address] 64[address] 15 Sep, 2012 [facility] [place] [facility] [address] [id number] [place] [address] Sep, [facility] [place] [facility] [address] [id number] [place] [address]141 Sep, [facility] [place] [facility] [address] [id number] [place] [address] 2735 Aug, [facility] [place] [facility] [address] [id number] [place] [address]- 8567 Aug, [facility] [place] [facility] [address] [id number] [place] [address]- 9147 16 Aug, 2012 [facility] [place] [facility] [address] [id number] [place] [address]- [address] Aug, [facility] [place] [facility] [address] [id number] [place] [address]- [address]608 11 Aug, 2012 [facility] [place] [facility] [address] [id number] [place] [address]- 7728 10 Aug, 2012 [facility] [place] [facility] [address] [id number] [place] [address]- 1810 04 Aug, 2012 [facility] [place] [facility] [address] [id number] [place] [address]- 6736 04 Aug, 2012 [facility] [place] [facility] [address] [id number] [place] [address]- 2546 July, [facility] [address] [id number] [place] [address] July, [facility] [address] [id number] [place] [address] July, [facility] [address] [id number] [place] [id number] July, [facility] [address] [id number] [place] [address]- 2036 July, [facility] [address] [id number] [place] [address]- 1546 Jun, [facility] [address] [id number] [place] [address] 12[address] May, [facility] [address] [id number] [place] [address] 2756 May, [facility] [address] [id number] [place] [address] 1079 May, [facility] [address] [id number] [place] [address]116 Apr, [facility] [address] [id number] [place] [address] 0176 Apr, [facility] [address] [id number] [place] [address]- 2546 Apr, [facility] [address] [id number] [place] [address] 8105 Mar, [facility] [address] [id number] [place] [address] 4896 Mar, [facility] [address] [id number] [place] [address] 2546 Mar, [facility] [address] [id number] [place] [address] 0792 Mar, [facility] [address] [id number] [place] [address]- 7060 10 Mar, 2012 [facility] [place] [facility] [address] [id number] [place] [address] Mar, [facility] [place] [facility] [address] [id number] [place] [address] 3183 Mar, [facility] [place] [facility] [address] [id number] [place] [address] 3110 Feb, [facility] [place] [facility] [address] [id number] [place] [address]- 2525 Feb, [facility] [place] [facility] [address] [address] [id number] [place] [address] Feb, [facility] [place] [facility] [address] [id number] [place] [address] Feb, [facility] [place] [facility] [address] [id number] [place] [address] Feb, [facility] [place] [facility] [address] [id number] [place] [address] Feb, [facility] [place] [facility] [address] [id number] [place] [address] Feb, [facility] [place] [facility] [address] [id number] [place] [address] Feb, [facility] [place] [facility] [address] [id number] [address] Jan, [facility] [place] [facility] [address] [id number] [place] [address] 69[address] Jan, [facility] [place] [facility] [address] [id number] [place] [address] Jan, [facility] [place] [facility] [address] [id number] [place] [address] 8979 Jan, [facility] [place] [facility] [address] [id number] [place] [address] 47[address] Jan, [facility] [place] [facility] [address] [id number] [place] [address] Jan, [facility] [place] [facility] [address] [id number] [place] [address] Jan, [facility] [place] [facility] [address] [id number] [place] [address] 0761 Jan, [facility] [place] [facility] [address] [id number] [place] [address] 9661 Jan, [facility] [place] [facility] [address] [id number] [place] [address] 7632 Jan, [facility] [place] [facility] [address] [id number] [place] [address] Jan, [facility] [place] [facility] [address] [facility] [id number] [place] [address] 5[address] Jan, [facility] [place] [facility] [address] [id number] [place] [address] 3036 Jan, [facility] [place] [facility] [address] [id number] [place] [address] 6186 Jan, [facility] [place] [facility] [address] [facility] [id number] [place] [address]- 0471 Jan, [facility] [place] [facility] [address] [id number] [place] [address] 2909 Jan, [facility] [place] [facility] [address] [id number] [address] 6[address] Dec, [facility] [place] [facility] [address] [id number] [place] [address] 9076 Dec, [facility] [place] [facility] [address] [facility] [id number] [place] [address] 1086 Dec, [facility] [place] [facility] [address] [facility] [id number] [address] 1484 Dec, [facility] [place] [facility] [address] [id number] [place] [address] 1326 Dec, [facility] [place] [facility] [address] [id number] [place] [address] 4201 Dec, [facility] [place] [facility] [address] [id number] [place] [address] 7537 Dec, [facility] [place] [facility] [address] [id number] [place] [address] 4443 Dec, [facility] [place] [facility] [address] [id number] [place] [address] 6331 Dec, [facility] [place] [facility] [address] [id number] [place] [address] 3544 Dec, [facility] [place] [facility] [address] [id number] [place] [address] 3575 18 Nov, 2011 [facility] [place] [facility] [address] [id number] [place] [address]- 7596 Nov, [facility] [place] [facility] [address] [id number] [place] [address] 9689 24 Oct, 2011 [facility] [place] [facility] [address] [id number] [place] [address] 2365 Oct, [facility] [place] [facility] [address] [id number] [place] [address] 8192 17 Oct, 2011 [facility] [place] [facility] [address] [id number] [place] [address] 2061 16 Oct, 2011 [facility] [place] [facility] [address] [id number] [place] [address] 15 Oct, 2011 [facility] [place] [facility] [address] [id number] [place] [address] 9578 Oct, [facility] [place] [facility] [address] [id number] [place] [address] 8792 Oct, [facility] [place] [facility] [address] [id number] [place] [address] Sep, [facility] [place] [facility] [address] [id number] [place] [address] 67[address] Aug, [facility] [place] [facility] [address] [id number] [place] [address] 7909 Aug, [facility] [place] [facility] [address] [id number] [place] [address] 3041 Aug, [facility] [place] [facility] [address] [id number] [place] [address] 9970 Aug, [facility] [place] [facility] [address] [id number] [place] [address] 1447 Aug, [facility] [place] [facility] [address] [id number] [place] [address] 8767 July, [facility] [place] [facility] [address] [id number] [place] [address] 4207 July, [facility] [place] [facility] [address] [id number] [place] [address] 9676 July, [facility] [place] [facility] [address] [id number] [place] [address] 9618 Jun, [facility] [place] [facility] [address] [id number] [place] [address] 3676 Jun, [facility] [place] [facility] [address] [id number] [place] [address] 5661 Jun, [facility] [place] [facility] [address] [id number] [place] [address] 8193 Jun, [facility] [place] [facility] [address] [id number] [place] [address] 2763 May, [facility] [place] [facility] [address] [id number] [place] [address] 0184 May, [facility] [place] [facility] [address] [id number] [place] [address] 9925 May, [facility] [place] [facility] [address] [id number] [place] [address] 7861 28 May, 2011 [facility] [address] [id number] [place] [address]- 2596 23 May, 2011 [facility] [address] [id number] [place] [address] 8886 22 May, 2011 [facility] [address] [id number] [place] [address]- 6516 21 May, 2011 [facility] [address] [id number] [place] [address]- 9350 19 May, 2011 [facility] [address] [id number] [place] [address]- 1162 08 May, 2011 [facility] [address] [id number] [place] [address]- 3347 05 May, 2011 [facility] [address] [id number] [place] [address]- 8990 02 May, 2011 [facility] [address] [id number] [place] [address] 4032 May, [facility] [address] [id number] [place] [address]- 8583 31 Mar, 2011 [facility] [address] [id number] [place] [address]- 7883 Mar, [facility] [address] [id number] [place] [address]- 2678 28 Feb, 2011 [facility] [address] [id number] [place] [address]- 0660 20 Feb, 2011 [facility] [place] [facility] [address] [id number] [place] [address]- 8896 20 Feb, 2011 [facility] [address] [id number] [place] [address] 1976 15 Feb, 2011 [facility] [address] [id number] [place] [address]- 6462 13 Feb, 2011 [facility] [place] [facility] [address] [id number] [place] [address]- 8886 13 Feb, 2011 [facility] [place] [facility] [address] [id number] [place] [address] Feb, [facility] [place] [facility] [address] [id number] [place] [address] 28 Jan, 2011 [facility] [place] [facility] [address] [id number] [place] [address]- 9876 Jan, [facility] [place] [facility] [address] [id number] [place] [address] Jan, [facility] [place] [facility] [address] [id number] [place] [address]- 7140 Jan, [facility] [place] [facility] [address] [id number] [place] [address]- 0000 Jan, [facility] [place] [facility] [address] [id number] [place] [address]- 6121 Jan, [facility] [place] [facility] [address] [id number] [place] [address]- 1537 Dec, [facility] [place] [facility] [address] [id number] [place] [address]- 4784 Dec, [facility] [place] [facility] [address] [id number] [place] [address]- 4918 Dec, [facility] [place] [facility] [address] [id number] [address] 5130 July, [facility] [place] [facility] [address] [id number] [place] [address]- 4620 July, [facility] [place] [facility] [address] [id number] [place] [address]- 2853 Feb, [facility] [place] [facility] [address] [id number] [place] [address]- 1986 Jan, [facility] [place] [facility] [address] [id number] [address]- 4675 Dec, [facility] [place] [facility] [address] [id number] [place] [address]- 1777 Dec, [facility] [place] [facility] [address] [id number] [address]- 0943 Sep, [facility] [place] [facility] [address] [id number] [place] [address]- 0259 Aug, [facility] [place] [facility] [address] [id number] [place] [address]- 1637 Jun, [facility] [place] [facility] [address] [id number] [place] [address]- 5592 Jun, [facility] [place] [facility] [address] [id number] [address]- 8743 Jan, [facility] [place] [facility] [address] [facility] [id number] [place] [address]- 8010 Jan, [facility] [place] [facility] [address] [id number] [address]- 1750 Jan, [facility] [place] [facility] [address] [id number] [place] [address]- 6612 Jan, [facility] [place] [facility] [address] [facility] [id number] [place] [address]- 6895 Dec, [facility] [place] [facility] [address] [id number] [address]- 4980 Dec, [facility] [place] [facility] [address] [id number] [place] [address]- 4545 15 Dec, 2008 [facility] [place] [facility] [address] [id number] [address]- 9977 Nov, [facility] [place] [facility] [address] [id number] [address]- 7201 July, [facility] [place] [facility] [address] [id number] [place] [address]- 2724 May, [facility] [place] [facility] [address] [facility] [id number] [place] [address]- 3146 Apr, [facility] [address] [facility] [id number] [place] [address]- 3174 Feb, [facility] [address] [facility] [id number] [place] [address]- 6040 Dec, IMMUNIZATIONS No Known Immunizations SOCIAL HISTORY Never Assessed REASON FOR VISIT f/u PLAN OF CARE Activity Details Follow Up 1 Week Reason: VITAL SIGNS MEDICATIONS Unknown Medications RESULTS No Results PROCEDURES Procedure Date Ordered Result Body Site Psychotherapy, patient &/family, 30 minutes, established patient July 09, 2017 INSTRUCTIONS MEDICATIONS ADMINISTERED No Known Medications [...]
--- OUTSIDE RECORDS SUMMARY | 2018-06-14 14:47 | XMS REPORT ---
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 Active 975947331 Problem Bipolar 1 disorder F31.9 Active 702280163 Problem Hyperlipidemia, unspecified E78.5 Active 22198471 Problem Type 2 diabetes mellitus with complication E11.8 Active 196195664 Problem Post laminectomy syndrome M96.1 Active 62673380 Problem Eye exam normal Z01.00 Active 507088796 Problem Bipolar disorder, in partial remission, most recent episode manic F31.73 Active 10073231 Problem Extreme poverty Z59.5 Active 24708935 Problem Obesity, unspecified 278.00 Active 593453946 Problem 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 Active 13631355 Problem Hyperlipidemia 272.4 Active 13952053 Problem Non compliance with medical treatment Z91.19 Active 8252264 ALLERGIES No Information ENCOUNTERS Encounter Location Date Diagnosis [facility] [address], [place] [address] Nov, [facility] [address], [place] [address] Oct, [facility] [id number] [address] Oct, [facility] [id number] [place] [address] 76534- 2946 Oct, [id number] [place] [address] 20523- 4363 Sep, Diarrhea, unspecified R19.7 and Vomiting, unspecified R11.10 [address] [id number] [place] [address] 20190- 7780 Aug, Type 2 diabetes mellitus with complication E11.8 [facility] [id number] [place] [address] 66514- 9228 Aug, [address] [address] [id number] [place] [address] 03345- 1452 Aug, Bipolar 1 disorder F31.9 ; 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 and Extreme poverty Z59.5 [address] [id number] [place] [address] 35800- 5667 Aug, 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 and Bipolar disorder, in partial remission, most recent episode manic F31.73 [facility] [id number] [place] [address] 26036- 1252 Aug, Bipolar 1 disorder F31.9 [address] [id number] [place] [address] 93730- 1484 Aug, [address] [id number] [place] [address] 46074- 6047 Aug, [address] [id number] [place] [address] 77374- 8942 Aug, Bipolar 1 disorder F31.9 ; 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 and Extreme poverty Z59.5 [place] [id number] [place] [address] 78533- 1921 July, Type 2 diabetes mellitus with complication E11.8 [address] [address] [address] [place] [address] 62339- 5631 July, Bipolar 1 disorder F31.9 ; 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 and Extreme poverty Z59.5 [address] [address] [place] [address] 27643- 7427 Jun, Bipolar 1 disorder F31.9 ; 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 and Extreme poverty Z59.5 [facility] [id number] [place] [address] 12392- 6015 Jun, Bipolar 1 disorder F31.9 ; 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 and Extreme poverty Z59.5 [place] [id number] [place] [address] 86949- 9409 Jun, Bipolar 1 disorder F31.9 ; 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 and Extreme poverty Z59.5 [place] [id number] [place] [address] 89712- 0644 May, Urinary tract infection without hematuria, site unspecified N39.0 [address] [id number] [place] [address] 48037- 9637 May, Bipolar 1 disorder F31.9 ; 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 and Extreme poverty Z59.5 [address] 02914- 4646 Apr, Diabetes E11.9 and Breast cancer screening Z12.31 [place] [id number] [place] [address] 17911- 1519 Apr, Bipolar 1 disorder F31.9 and 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 [address] [id number] [place] [address] 50266- 7891 Mar, Bipolar 1 disorder F31.9 ; 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 and Extreme poverty Z59.5 [address] [id number] [place] [address] 13151- 6982 Mar, New daily persistent headache G44.52 ; Leg pain 729.5 and History of carpal tunnel release Z98.890 [id number] [place] [address] 94905- 7600 Mar, Hyperlipidemia, unspecified E78.5 [address] [address] [place] [address] 74263- 9243 Mar, Bipolar 1 disorder F31.9 ; 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 and Extreme poverty Z59.5 [place] [id number] [place] [address] 66119- 2232 Feb, Bipolar 1 disorder F31.9 ; 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 and Extreme poverty Z59.5 [place] [id number] [place] [address] 92034- 5497 Feb, Diabetes E11.9 [address] [id number] [place] [address] 72354- 9595 Feb, Viral syndrome B34.9 [id number] [place] [address] 79163- 9493 Jan, Other viral agents as the cause of diseases classified elsewhere B97.89 and Acute upper respiratory infection, unspecified J06.9 [place] [id number] [place] [address] 88403- 0630 Jan, Bipolar 1 disorder F31.9 and 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 [place] [id number] [place] [address] 43946- 9863 Jan, Bipolar 1 disorder F31.9 ; 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 and Extreme poverty Z59.5 [place] [id number] [place] [address] 13127- 3070 Dec, Diabetes E11.9 [place] [id number] [place] [address] 31964- 9177 Dec, Diabetes E11.9 and Encounter for immunization Z23 [place] [address] [id number] [place] [address] 64225- 3887 Dec, Bipolar 1 disorder F31.9 ; 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 and Extreme poverty Z59.5 [place] [address] [address]- 4304 Dec, Back pain M54.9 [facility] [id number] [place] [address] 04322- 8507 Nov, [facility] [address] [place] [address] 05211- 1523 Nov, Bipolar 1 disorder F31.9 ; 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 and Extreme poverty Z59.5 [facility] [address] [place] [address] 83696- 9361 05 Nov, 2016 Bipolar 1 disorder F31.9 ; 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 and Extreme poverty Z59.5 [address] [place] [address] 42534- 0972 Oct, 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 and Bipolar 1 disorder F31.9 [address] [place] [address] 05405- 6315 Oct, Bipolar 1 disorder F31.9 ; 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 and Extreme poverty Z59.5 [address] [address] [place] [address] 90592- 2066 Oct, Back pain M54.9 [facility] [address] [place] [address] 08297- 4386 Oct, 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 and Type 2 diabetes mellitus with complication E11.8 [address] [place] [address] 66448- 3218 Sep, Bipolar 1 disorder F31.9 ; 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 and Extreme poverty Z59.5 [address] [address] [place] [address] 58061- 3573 Sep, 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 and Bipolar 1 disorder F31.9 [facility] [address] [place] [address] 54823- 5647 Sep, Bipolar 1 disorder F31.9 ; 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 and Extreme poverty Z59.5 [facility] [address], [place] [address]- 3206 Aug, Diabetes E11.9 ; Hyperlipidemia, unspecified E78.5 and Lumbar radiculopathy M54.16 [facility] [address], [place] [address]- 4661 15 Aug, 2016 Bipolar 1 disorder F31.9 ; 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 and Extreme poverty Z59.5 [facility] [address], [place] [address]- 9755 Aug, [facility] [id number] [place] [address] 09210- 9067 Aug, [facility] [id number] [place] [address] 42892- 8922 Aug, [facility] [id number] [place] [address] 31860- 5279 July, [facility] [address] [place] [address] 30453- 5388 July, Acute bilateral low back pain with right-sided sciatica M54.41 [facility] [address] [place] [address] 57667- 3704 July, Bipolar 1 disorder F31.9 ; 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 and Extreme poverty Z59.5 [address] [place] [address] 84033- 2253 July, Back pain M54.9 and Diabetes E11.9 [facility] [address], [place] [address]- 4386 Jun, Bipolar 1 disorder F31.9 ; 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 and Extreme poverty Z59.5 [facility] [address] [place] [address] 46745- 8306 Jun, Bipolar 1 disorder F31.9 ; 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 and Extreme poverty Z59.5 [address] [place] [address] 12950- 4207 May, Visit for pelvic exam Z01.419 ; Acute vaginitis N76.0 and Diabetes E11.9 [id number] [place] [address] 61462- 5982 16 May, 2016 Bipolar 1 disorder F31.9 ; 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 and Extreme poverty Z59.5 [address] [address] [address] 34789- 0693 May, [address] [address] 08315- 4631 May, [place] [id number] [place] [address] 15867- 4387 May, Bipolar 1 disorder F31.9 ; 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 and Extreme poverty Z59.5 [address] 51054- 2252 May, Hyperlipidemia, unspecified E78.5 [address] [address] 04815- 8145 Apr, Breast cancer screening Z12.39 [place] [id number] [place] [address] 30904- 4057 Mar, [address] [id number] [place] [address] 93187- 4990 Mar, Bipolar disorder, current episode mixed, unspecified F31.60 [address] [id number] [place] [address] 89100- 1831 Mar, Bipolar 1 disorder F31.9 ; 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 and Extreme poverty Z59.5 [address] [id number] [place] [address] 07507- 1255 Feb, Acute nasopharyngitis J00 [address] 24471- 6863 27 Feb, 2016 Dental examination Z01.20 [id number] [place] [address] 05881- 8794 21 Feb, 2016 Dental cavities K02.9 and Chronic periodontitis, unspecified K05.30 [address] [id number] [place] [address] 11851- 4654 13 Feb, 2016 Low back pain M54.5 and Extreme poverty Z59.5 [place] [id number] [place] [address] 29985- 5550 08 Feb, 2016 [place] [id number] [place] [address] 30522- 7649 05 Feb, 2016 Routine gynecological examination V72.31 ; Breast cancer screening Z12.39 and Herpes simplex type 1 infection B00.9 [id number] [place] [address] 81086- 2389 02 Feb, 2016 Diabetes E11.9 [address] [id number] [place] [address] 77971- 6191 01 Feb, 2016 Encounter for dental examination and cleaning without abnormal findings Z01.20 [place] [id number] [place] [address] 37213- 1228 22 Jan, 2016 Hyperlipidemia, unspecified E78.5 [place] [id number] [place] [address] 10697- 9902 22 Jan, 2016 Bipolar 1 disorder F31.9 ; 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 and Extreme poverty Z59.5 [place] [id number] [place] [address] 34791- 2066 18 Jan, 2016 Diabetes E11.9 [place] [id number] [place] [address] 94915- 2040 17 Jan, 2016 Diabetes E11.9 [place] [id number] [place] [address] 14747- 9773 14 Dec, 2015 Bipolar 1 disorder F31.9 ; 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 and Extreme poverty Z59.5 [address] [place] [address] 07238- 7449 Dec, Bipolar disorder, current episode mixed, unspecified F31.60 and 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 [place] [id number] [place] [address] 08203- 2733 16 Nov, 2015 Bipolar 1 disorder F31.9 ; 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 ; Extreme poverty Z59.5 and Non compliance with medical treatment Z91.19 [address] [id number] [place] [address] 27214- 6426 Oct, [address] 70167- 9377 Oct, Dental caries K02.9 [place] [id number] [place] [address] 44207- 4181 Oct, Low back pain M54.5 and Other chronic pain G89.29 [address] [id number] [place] [address] 81783- 0020 Oct, Bipolar 1 disorder F31.9 ; 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19 [address] [id number] [place] [address] 17865- 4714 Oct, [address], [place] [address]- 1464 Sep, Type 2 diabetes mellitus with complication E11.8 [address], [place] [address]- 0745 Sep, Bipolar disorder, current episode mixed, unspecified F31.60 [place], [place] [address]- 3561 Sep, Bipolar disorder, current episode mixed, unspecified F31.60 [address] [place] [place] [address] 40029- 1680 Sep, Bipolar disorder, in partial remission, most recent episode manic F31.73 ; 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 ; Extreme poverty Z59.5 and Non compliance with medical treatment Z91.19 [address] [address], [place] [address]- 7236 Aug, Bipolar disorder, in partial remission, most recent episode manic F31.73 ; 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 ; Extreme poverty Z59.5 and Non compliance with medical treatment Z91.19 [address] [address], [place] [address]- 8776 Aug, Bipolar disorder, in partial remission, most recent episode manic F31.73 ; 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 ; Extreme poverty Z59.5 and Non compliance with medical treatment Z91.19 [address] [address], [place] [address]- 4059 Aug, [address], [place] [address]- 4528 July, Bipolar disorder, in partial remission, most recent episode manic F31.73 ; 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 ; Extreme poverty Z59.5 and Non compliance with medical treatment Z91.19 [place] [facility] [address], [place] [address]- 5707 July, Bipolar disorder, current episode mixed, unspecified F31.60 [address], [place] [address]- 3653 July, Bipolar disorder, in partial remission, most recent episode manic F31.73 ; 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 ; Extreme poverty Z59.5 and Non compliance with medical treatment Z91.19 [address] [address] [place] [address] 39512- 7862 July, 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 and Chronic pain G89.29 [place] [id number] [place] [address] 95632- 2653 Jun, 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 Z79.891 and Bipolar 1 disorder F31.9 [place] [id number] [place] [address] 10899- 9847 Jun, [place] [id number] [place] [address] 62146- 2096 Jun, [place] [id number] [place] [address] 05609- 2077 Jun, [place] [id number] [place] [address] 20479- 4981 Jun, Bipolar disorder, in partial remission, most recent episode manic F31.73 ; 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29 [place] [id number] [place] [address] 60738- 4985 May, [place] [id number] [place] [address] 96188- 0792 May, Bipolar disorder, in partial remission, most recent episode manic F31.73 ; Non compliance with medical treatment Z91.19 and 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 [place] [id number] [place] [address] 98063- 6848 May, Type 2 diabetes mellitus with complication E11.8 and Back pain M54.9 [place] [id number] [place] [address] 32717- 5954 May, Bipolar disorder, in partial remission, most recent episode manic F31.73 and 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 [place] [id number] [place] [address] 47306- 7544 Apr, [place] [id number] [place] [address] 42277- 9657 Apr, [place] [id number] [place] [address] 47462- 1677 Apr, [place] [id number] [place] [address] 03817- 8062 09 Apr, 2015 Diabetes E11.9 ; Irritable bowel syndrome with diarrhea K58.0 and Lumbar radiculopathy M54.16 [place] [id number] [place] [address] 40219- 1690 Apr, Breast screening Z12.39 [place] [id number] [place] [address] 69055- 3458 Apr, Bipolar disorder, in partial remission, most recent episode manic F31.73 ; Non compliance with medical treatment Z91.19 and 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 [place] [id number] [place] [address] 44840- 9411 Mar, Edema, unspecified type R60.9 and Type 2 diabetes mellitus with complication E11.8 [address] [address] [place] [address] 59336- 7677 Mar, Bipolar disorder, in partial remission, most recent episode manic F31.73 ; Non compliance with medical treatment Z91.19 ; 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 and Extreme poverty Z59.5 [place] [id number] [place] [address] 81754- 5873 Mar, Bipolar disorder, current episode mixed, unspecified F31.60 ; 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 ; Extreme poverty Z59.5 and Generalized anxiety disorder F41.1 [address] [address] 91449- 6538 Mar, Bipolar disorder, in partial remission, most recent episode manic F31.73 ; 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 and Extreme poverty Z59.5 [address] [address] 54099- 1589 Feb, Bipolar disorder, in partial remission, most recent episode manic F31.73 ; 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 and Extreme poverty Z59.5 [place] [id number] [place] [address] 35029- 5762 Feb, Bipolar disorder, in partial remission, most recent episode manic F31.73 ; 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 and Extreme poverty Z59.5 [place] [id number] [place] [address] 89079- 1141 Feb, [place] [id number] [place] [address] 20630- 3648 Jan, Type 2 diabetes mellitus with complication E11.8 and Petechiae R23.3 [place] [id number] [place] [address] 97897- 8628 Jan, Type 2 diabetes mellitus with complication E11.8 ; Edema, unspecified R60.9 ; Petechiae R23.3 and Diabetes E11.9 [place] [id number] [place] [address]- 2546 Jan, Bipolar disorder, in partial remission, most recent episode manic F31.73 ; 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 and Extreme poverty Z59.5 [address] [id number] [place] [address] 42443- 7322 Jan, Bipolar disorder, in partial remission, most recent episode manic F31.73 ; 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 and Extreme poverty Z59.5 [place] [id number] [place] [address] 78435- 4749 Dec, Bipolar disorder, in partial remission, most recent episode manic F31.73 [address] [address] 40585- 8430 Dec, Edema, due to unspecified malnutrition type, unspecified edema R60.9 and Essential hypertension I10 [id number] [place] [address] 21053- 3834 Dec, Bipolar disorder, in partial remission, most recent episode manic F31.73 [place] [id number] [place] [address] 85016- 8508 Nov, Bipolar I disorder, most recent episode (or current) mixed, unspecified 296.60 [place] [id number] [place] [address] 71928- 2302 Nov, Stress incontinence, female 625.6 ; Back pain 724.5 and Leg pain 729.5 [place] [id number] [place] [address] 49457- 3486 Nov, Generalized anxiety disorder 300.02 and Bipolar II disorder 296.89 [place] [id number] [place] [address] 04509- 2272 Nov, Bipolar I disorder, most recent episode (or current) mixed, unspecified 296.60 [place] [id number] [place] [address] 61712- 9736 Oct, [address] [address] 5609 Oct, [facility] [address] [address]- 1217 Oct, [facility] [address] 7827 Oct, Bipolar I disorder, most recent episode (or current) mixed, unspecified 296.60 [facility] [id number] [place] [address] 01534- 9003 Sep, Diabetes 250.00 [facility] [id number] [place] [address] 90601- 8193 Sep, Bipolar I disorder, most recent episode (or current) mixed, unspecified 296.60 [facility] [address] [place] [address] 775049- 5919 Sep, [facility] [id number] [place] [address]- [address]382 Sep, [facility] [id number] [address] [address] Sep, Bipolar I disorder, most recent episode (or current) mixed, unspecified 296.60 [facility] [address] [address] 9244 Sep, Bipolar I disorder, most recent episode (or current) mixed, unspecified 296.60 [facility] [address] [address]- 5213 Sep, [facility] [address] [id number] [address] 6937 Sep, Anxiety 300.00 ; Diabetes 250.00 and Hyperlipidemia 272.4 [facility] [address] 8666 Aug, [facility] [address] 4064 Aug, [facility] [address] [address] 2879 Aug, [facility] [id number] [place] [address] 396322- 9525 Aug, Bipolar I disorder, most recent episode (or current) mixed, unspecified 296.60 [facility] [id number] [place] [address] 631617- 9421 Aug, Generalized anxiety disorder 300.02 and Bipolar II disorder 296.89 [facility] [id number] [place] [address] 12781- 8552 July, Bipolar I disorder, most recent episode (or current) mixed, unspecified 296.60 [facility] [id number] [place] [address] 20683- 6144 July, Cough 786.2 [facility] [id number] [place] [address] 61996- 4678 July, Bipolar I disorder, most recent episode (or current) mixed, unspecified 296.60 [facility] [address] [address]- 2263 30 Jun, 2014 Diabetes 250.00 [facility] [id number] [place] [address] 30420- 6494 14 Jun, 2014 [facility] [address], [place] [address]- 0621 Jun, [facility] [address], [place] [address]- 3009 May, [facility] [address], [place] [address]- 6660 May, [facility] [id number] 5173 May, [facility] [address] [address] 1696 May, [facility] [id number] [place] [address] 85123- 5356 May, [facility] [place] [facility] [address] [id number] [place] [address]- 5976 May, [facility] [place] [facility] [address] [id number] [place] [address]- 8166 Apr, 2014 [facility] [place] [facility] [address] [id number] [place] [address]- 2826 Apr, 2014 [facility] [place] [facility] [address] [id number] [place] [address]- 5850 Apr, 2014 [facility] [place] [facility] [address] [id number] [place] [address]- 7086 Apr, 2014 [facility] [place] [facility] [address] [id number] [place] [address]- 2546 Apr, 2014 [facility] [place] [facility] [address] [facility] [id number] [place] [address]- 2076 Apr, 2014 [facility] [place] [facility] [address] [facility] [id number] [place] [address]- 1449 Apr, [facility] [place] [facility] [address] [facility] [id number] [place] [address]- 7165 Apr, [facility] [place] [facility] [address] [facility] [id number] [place] [address]- 1407 Mar, [facility] [place] [facility] [address] [id number] [place] [address] 2545 Mar, [facility] [place] [facility] [address] [id number] [place] [address]- 2549 Mar, [facility] [place] [facility] [address] [id number] [place] [address]- 2792 Mar, [facility] [place] [facility] [address] [facility] [id number] [place] [address]- 3009 Mar, [facility] [place] [facility] [address] [facility] [id number] [place] [address]- 8730 Mar, [facility] [place] [facility] [address] [id number] [place] [address]- 0018 Mar, [facility] [place] [facility] [address] [id number] [place] [address]- 9794 Mar, [facility] [place] [facility] [address] [id number] [place] [address]- 7772 Feb, [facility] [place] [facility] [address] [id number] [place] [address]- 2425 Feb, [facility] [place] [facility] [address] [id number] [place] [address]- 9735 Feb, [facility] [place] [facility] [address] [id number] [place] [address]- 6795 Feb, [facility] [place] [facility] [address] [id number] [place] [address]- 6177 Feb, [facility] [place] [facility] [address] [id number] [place] [address]- 6989 Feb, [facility] [place] [facility] [address] [id number] [place] [address]- 4433 Feb, [facility] [place] [facility] [address] [id number] [place] [address]- 8283 Feb, [facility] [place] [facility] [address] [id number] [place] [address]- 8778 Feb, [facility] [place] [facility] [address] [id number] [address]- 9859 Feb, [facility] [place] [facility] [address] [id number] [place] [address]- 6235 Jan, [facility] [place] [facility] [address] [id number] [place] [address]- 1147 Jan, [facility] [place] [facility] [address] [id number] [place] [address]- 5674 Jan, [facility] [place] [facility] [address] [id number], [place] [address]- 9665 Jan, [facility] [place] [facility] [address] [id number] [place] [address]- 8737 Jan, [facility] [place] [facility] [address] [id number] [place] [address]- 2991 Jan, [facility] [place] [facility] [address] [id number] [place] [address]- 3633 Jan, [facility] [place] [facility] [address] [id number] [place] [address]- 2286 Jan, [facility] [place] [facility] [address] [id number] [place] [address]- 3125 Jan, [facility] [place] [facility] [address] [id number] [place] [address]- 2005 Jan, [facility] [place] [facility] [address] [facility] [id number] [place] [address]- 3872 Jan, [facility] [place] [facility] [address] [id number] [place] [address]- 1683 Jan, [facility] [place] [facility] [address] [id number] [place] [address]- 3614 Jan, [facility] [place] [facility] [address] [facility] [id number] [place] [address]- 0487 Jan, [facility] [place] [facility] [address] [id number], [place] [address]- 4686 Jan, [facility] [place] [facility] [address] [id number], [place] [address]- 4748 Dec, [facility] [place] [facility] [address] [id number] [place] [address]- 8912 Dec, [facility] [place] [facility] [address] [facility] [id number] [place] [address]- 7450 Dec, [facility] [place] [facility] [address] [facility] [id number], [place] [address]- 2497 Dec, [facility] [place] [facility] [address] [id number] [place] [address]- 1130 09 Dec, 2013 [facility] [place] [facility] [address] [id number] [place] [address]- 5193 09 Dec, 2013 [facility] [place] [facility] [address] [id number] [place] [address]- 4886 07 Dec, 2013 [facility] [place] [facility] [address] [id number] [place] [address]- 2733 07 Dec, 2013 [facility] [place] [facility] [address] [id number] [place] [address]- 4502 25 Sep, 2013 [facility] [place] [facility] [address] [id number] [place] [address]- 2036 25 Sep, 2013 [facility] [place] [facility] [address] [id number] [place] [address]- 3137 10 Nov, 2013 [facility] [place] [facility] [address] [id number] [place] [address]- 9116 10 Sep, 2013 [facility] [place] [facility] [address] [id number] [place] [address] 2544 08 Sep, 2013 [facility] [place] [facility] [address] [id number] [place] [address] 2548 08 Sep, 2013 [facility] [place] [facility] [address] [id number] [place] [address] 2540 08 Sep, 2013 [facility] [place] [facility] [address] [id number] [place] [address]- 2549 08 Sep, 2013 [facility] [place] [facility] [address] [id number] [place] [address] 2546 08 Sep, 2013 [facility] [place] [facility] [address] [id number] [place] [address] 2546 08 Sep, 2013 [facility] [place] [facility] [address] [id number] [place] [address]- 2546 04 Sep, 2013 [facility] [place] [facility] [address] [id number] [place] [address]- 8117 Nov, [facility] [place] [facility] [address] [id number] [place] [address]- 7816 Nov, [facility] [place] [facility] [address] [id number] [place] [address]- 2710 Nov, [facility] [place] [facility] [address] [id number] [place] [address]- 3560 Nov, [facility] [place] [facility] [address] [id number] [place] [address]- 6421 Oct, [facility] [place] [facility] [address] [id number] [place] [address]- 9217 Oct, [facility] [place] [facility] [address] [id number] [place] [address]- 6310 Oct, [facility] [place] [facility] [address] [id number] [place] [address]- 6695 Oct, [facility] [place] [facility] [address] [id number] [place] [address]- 7675 Oct, [facility] [place] [facility] [address] [id number] [place] [address]- 8389 Oct, [facility] [place] [facility] [address] [id number] [place] [address]- 3078 Oct, [facility] [place] [facility] [address] [id number] [place] [address]- 6303 Oct, [facility] [place] [facility] [address] [id number] [place] [address]- 8090 Oct, [facility] [place] [facility] [address] [id number] [place] [address]- 4026 Oct, [facility] [place] [facility] [address] [id number] [place] [address]- 2845 Oct, [facility] [place] [facility] [address] [id number] [place] [address]- 2366 Oct, [facility] [place] [facility] [address] [id number] [place] [address]- 3901 Oct, [facility] [place] [facility] [address] [id number] [place] [address]- 1231 Oct, [facility] [place] [facility] [address] [id number] [place] [address]- 5693 Sep, [facility] [place] [facility] [address] [id number] [place] [address]- 3805 Sep, [facility] [place] [facility] [address] [id number] [place] [address]- 5644 Sep, [facility] [place] [facility] [address] [id number] [place] [address]- 1125 Sep, [facility] [place] [facility] [address] [id number] [place] [address]- 1460 Sep, [facility] [place] [facility] [address] [id number] [place] [address]- 4617 Sep, [facility] [place] [facility] [address] [id number] [place] [address]- 5472 Sep, [facility] [place] [facility] [address] [id number] [place] [address]- 1349 Sep, [facility] [place] [facility] [address] [id number] [place] [address]- 0116 Aug, [facility] [place] [facility] [address] [id number] [place] [address]- 8179 Aug, [facility] [place] [facility] [address] [id number] [place] [address]- 8093 Aug, [facility] [place] [facility] [address] [id number] [place] [address]- 0587 Aug, [facility] [place] [facility] [address] [id number] [place] [address]- 4134 Aug, [facility] [place] [facility] [address] [id number] [place] [address]- 8553 Aug, [facility] [place] [facility] [address] [id number] [place] [address]- 2738 Aug, [facility] [place] [facility] [address] [id number] [place] [address]- 5681 Aug, [facility] [place] [facility] [address] [id number] [place] [address]- 7200 July, [facility] [place] [facility] [address] [id number] [place] [address]- 1067 July, [facility] [place] [facility] [address] [id number] [place] [address]- 8431 July, [facility] [place] [facility] [address] [id number] [place] [address]- 3036 July, [facility] [place] [facility] [address] [id number] [place] [address]- 9757 July, [facility] [place] [facility] [address] [id number] [place] [address]- 5848 July, [facility] [place] [facility] [address] [id number] [place] [address]- 2829 July, [facility] [place] [facility] [address] [id number] [place] [address]- 5837 July, [facility] [place] [facility] [address] [id number] [place] [address]- 1246 Jun, [facility] [place] [facility] [address] [id number] [place] [address]- 4491 Jun, [facility] [place] [facility] [address] [id number] [place] [address]- 2902 Jun, [facility] [place] [facility] [address] [id number] [place] [address]- 1364 Jun, [facility] [place] [facility] [address] [id number] [place] [address]- 1791 Jun, [facility] [place] [facility] [address] [id number] [place] [address]- 6873 Jun, [facility] [place] [facility] [address] [id number] [place] [address]- 7951 Jun, [facility] [place] [facility] [address] [id number] [place] [address]- 3860 Jun, [facility] [place] [facility] [address] [id number] [place] [address]- 4402 Jun, [facility] [place] [facility] [address] [id number] [place] [address]- 1736 Jun, [facility] [place] [facility] [address] [id number] [place] [address]- 9650 Jun, [facility] [place] [facility] [address] [id number] [place] [address]- 8817 Jun, [facility] [place] [facility] [address] [id number] [place] [address]- 0028 May, [facility] [place] [facility] [address] [id number] [place] [address]- 6561 May, [facility] [place] [facility] [address] [id number] [place] [address]- 6139 May, [facility] [place] [facility] [address] [id number] [place] [address]- 9655 May, [facility] [place] [facility] [address] [id number] [place] [address]- 3760 May, [facility] [place] [facility] [address] [id number] [place] [address]- 3578 May, [facility] [place] [facility] [address] [id number] [place] [address]- 8584 May, [facility] [place] [facility] [address] [id number] [place] [address]- 0195 May, [facility] [place] [facility] [address] [id number] [place] [address]- 3410 May, [facility] [place] [facility] [address] [id number] [place] [address]- 5376 11 May, 2013 [facility] [place] [facility] [address] [id number] [place] [address]- 7594 May, [facility] [place] [facility] [address] [id number] [place] [address]- 6816 May, [facility] [place] [facility] [address] [id number] [place] [address]- 3736 May, [facility] [place] [facility] [address] [id number] [place] [address]- 5059 May, [facility] [place] [facility] [address] [id number] [place] [address]- 1433 Apr, [facility] [place] [facility] [address] [id number] [place] [address]- 1085 Apr, [facility] [place] [facility] [address] [id number] [place] [address]- 5859 Apr, [facility] [place] [facility] [address] [id number] [place] [address]- 2860 Apr, [facility] [place] [facility] [address] [id number] [place] [address]- 7014 Apr, [facility] [place] [facility] [address] [facility] [id number] [place] [address]- 5434 Apr, [facility] [place] [facility] [address] [id number] [place] [address]- 3207 Mar, [facility] [place] [facility] [address] [id number] [place] [address]- 0824 Mar, [facility] [place] [facility] [address] [id number] [place] [address]- 8852 Mar, [facility] [place] [facility] [address] [id number] [place] [address]- 2885 Mar, [facility] [place] [facility] [address] [id number] [place] [address]- 9144 Mar, [facility] [address] [id number] [place] [address]- 8159 Mar, [facility] [place] [facility] [address] [id number] [place] [address]- 0262 Mar, [facility] [place] [facility] [address] [id number] [place] [address]- 5054 Mar, [facility] [place] [facility] [address] [id number] [place] [address]- 8053 Mar, [facility] [place] [facility] [address] [id number] [place] [address]- 2883 Mar, [facility] [place] [facility] [address] [id number] [place] [address]- 4149 Mar, [facility] [place] [facility] [address] [id number] [place] [address]- 9122 Mar, [facility] [place] [facility] [address] [id number] [place] [address]- 0520 Mar, [facility] [place] [facility] [address] [id number] [place] [address]- 8742 Mar, [facility] [place] [facility] [address] [id number] [place] [address]- 0417 Feb, [facility] [place] [facility] [address] [id number], [place] [address]- 4106 Feb, [facility] [place] [facility] [address] [id number], [place] [address]- 4035 30 Feb, 2013 [facility] [place] [facility] [address] [id number] [place] [address]- 3894 Feb, [facility] [place] [facility] [address] [id number] [place] [address]- 3119 Feb, [facility] [place] [facility] [address] [id number] [place] [address]- 4863 Feb, [facility] [place] [facility] [address] [id number] [place] 1537 12 Feb, 2012 [facility] [address] [id number] [place] 7833 Feb, 2012 [facility] [place] [facility] [address] [id number] [place] 1070 Feb, 2012 [facility] [address] [id number] [place] [address]- 7158 Feb, 2012 [facility] [place] [facility] [address] [id number] [place] [address]- 9989 Feb, 2012 [facility] [address] [id number] [place] 4589 Feb, 2012 [facility] [place] [facility] [address] [id number] [place] [address]- 5609 Feb, [facility] [address] [id number] [place] [address]- 3761 Feb, 2012 [facility] [place] [facility] [address] [id number] [place] [address]- 1477 Feb, [facility] [place] [facility] [address] [id number] [place] [address]- 3081 Feb, 2012 [facility] [address] [facility] [id number] [place] [address]- 4402 Dec, [facility] [place] [facility] [address] [id number] [place] [address]- 2080 24 Dec, 2012 [facility] [place] [facility] [address] [id number] 0772 Dec, [facility] [place] [facility] [address] [id number] [place] [address]- 7738 Dec, 2012 [facility] [place] [facility] [address] [facility] [id number] [place] [address]- 5488 Dec, 2012 [facility] [place] [facility] [address] [id number], [place] [address]- 7923 Dec, 2012 [facility] [place] [facility] [address] [id number] [place] [address]- 2497 14 Dec, 2012 [facility] [place] [facility] [address] [id number] [place] [address]- 8280 14 Dec, 2012 [facility] [place] [facility] [address] [id number] [place] [address]- 2493 10 Dec, 2012 [facility] [place] [facility] [address] [id number] [place] [address]- 0490 10 Dec, 2012 [facility] [place] [facility] [address] [id number] [place] [address] 10 Dec, 2012 [facility] [place] [facility] [address] [id number] [place] [address] 79[address] 10 Dec, 2012 [facility] [place] [facility] [address] [id number] [place] [address] 03 Dec, 2012 [facility] [place] [facility] [address] [id number] [place] [address] 25 Nov, 2012 [facility] [place] [facility] [address] [id number] [place] [address]51 20 Nov, 2012 [facility] [place] [facility] [address] [id number] [place] [address] 18 Nov, 2012 [facility] [place] [facility] [address] [id number] [place] [address] 16 Nov, 2012 [facility] [place] [facility] [address] [id number], [place] [address] 12 Nov, 2012 [facility] [place] [facility] [address] [id number] [place] [address]607 11 Nov, 2012 [facility] [place] [facility] [address] [id number] [place] [address]- [address] 05 Nov, 2012 [facility] [place] [facility] [address] [id number] [place] [address] 15 Oct, 2012 [facility] [place] [facility] [address] [id number] [place] [address] Oct, [facility] [place] [facility] [address] [id number] [place] [address] 24 Sep, 2012 [facility] [place] [facility] [address] [id number] [place] [address] Sep, [facility] [place] [facility] [address] [id number] [place] [address] Sep, [facility] [place] [facility] [address] [id number] [place] [address] 7974 17 Sep, 2012 [facility] [place] [facility] [address] [id number] [place] [address]- 6026 15 Sep, 2012 [facility] [place] [facility] [address] [id number] [place] [address] 270[address] Sep, [facility] [place] [facility] [address] [id number] [place] [address] Sep, [facility] [place] [facility] [address] [id number] [place] [address] Aug, [facility] [place] [facility] [address] [id number] [place] [address] 299[address] Aug, [facility] [place] [facility] [address] [id number] [place] [address] 287[address] 16 Aug, 2012 [facility] [place] [facility] [address] [id number] [place] [address] Aug, [facility] [place] [facility] [address] [id number] [place] [address] 2450 11 Aug, 2012 [facility] [place] [facility] [address] [id number] [place] [address]- 8490 10 Aug, 2012 [facility] [place] [facility] [address] [id number] [place] [address]- 9365 04 Aug, 2012 [facility] [place] [facility] [address] [id number] [place] [address]- 9346 04 Aug, 2012 [facility] [place] [facility] [address] [id number] [place] [address] July, [facility] [address] [id number] [place] [address] July, [facility] [address] [id number] [place] [address] July, [facility] [place] [facility] [address] [id number] [place] [id number] July, [facility] [address] [id number] [place] [address] July, [facility] [address] [id number] [place] [address] Jun, [facility] [address] [id number] [place] [address] May, [facility] [address] [id number] [place] [address] May, [facility] [address] [id number] [place] [address] May, [facility] [address] [id number] [place] [address] Apr, [facility] [address] [id number] [place] [address] Apr, [facility] [address] [id number] [place] [address] Apr, [facility] [address] [id number] [place] [address] Mar, [facility] [place] [facility] [address] [id number] [place] [address] Mar, [facility] [address] [id number] [place] [address] Mar, [facility] [place] [facility] [address] [id number] [place] [address] 239[address] Mar, [facility] [address] [id number] [place] [address] 0698 10 Mar, 2012 [facility] [place] [facility] [address] [id number] [place] [address] Mar, [facility] [place] [facility] [address] [id number] [place] [address]- 3536 Mar, [facility] [place] [facility] [address] [id number] [place] [address] 2624 Feb, [facility] [place] [facility] [address] [id number] [place] [address]657 Feb, [facility] [place] [facility] [address] [id number] [place] [address]17 Feb, [facility] [place] [facility] [address] [id number] [place] [address]- [address]607 Feb, [facility] [place] [facility] [address] [id number] [place] [address]- [address] Feb, [facility] [place] [facility] [address] [id number] [place] [address] 3431 Feb, [facility] [place] [facility] [address] [id number] [place] [address] Feb, [facility] [place] [facility] [address] [id number] [place] [address] 17[address] Feb, [facility] [place] [facility] [address] [id number], [place] [address] Jan, [facility] [place] [facility] [address] [id number] [place] [address]644 Jan, [facility] [place] [facility] [address] [id number] [place] [address] 39[address] Jan, [facility] [place] [facility] [address] [id number] [place] [address] Jan, [facility] [place] [facility] [address] [id number] [place] [address] 6[address] Jan, [facility] [place] [facility] [address] [id number] [place] [address] 77[address] Jan, [facility] [place] [facility] [address] [id number] [place] [address] 58[address] Jan, [facility] [place] [facility] [address] [id number] [place] [address]- 2415 Jan, [facility] [place] [facility] [address] [id number] [place] [address] Jan, [facility] [place] [facility] [address] [id number] [place] [address] Jan, [facility] [place] [facility] [address] [id number] [place] [address] Jan, [facility] [place] [facility] [address] [facility] [id number] [place] [address] Jan, [facility] [place] [facility] [address] [id number] [place] [address] Jan, [facility] [place] [facility] [address] [id number] [place] [address]105 Jan, [facility] [place] [facility] [address] [facility] [id number] [place] [address] Jan, [facility] [place] [facility] [address] [id number] [place] [address] Jan, [facility] [place] [facility] [address] [id number], [place] [address] Dec, [facility] [place] [facility] [address] [id number] [place] [address] Dec, [facility] [place] [facility] [address] [facility] [id number] [place] [address] Dec, [facility] [place] [facility] [address] [facility] [id number][place] [address] Dec, [facility] [place] [facility] [address] [id number] [place] [address] Dec, [facility] [place] [facility] [address] [id number] [place] [address] Dec, [facility] [place] [facility] [address] [id number] [place] [address] Dec, [facility] [place] [facility] [address] [id number] [place] [address] Dec, [facility] [place] [facility] [address] [id number] [place] [address] Dec, [facility] [place] [facility] [address] [id number] [place] [address] Dec, [facility] [place] [facility] [address] [id number] [place] [address] 18 Nov, 2011 [facility] [place] [facility] [address] [id number] [place] [address] 7915 Nov, [facility] [place] [facility] [address] [id number] [place] [address] 24 Oct, 2011 [facility] [place] [facility] [address] [id number] [place] [address] 46[address] Oct, [facility] [place] [facility] [address] [id number] [place] [address] 3941 17 Oct, 2011 [facility] [place] [facility] [address] [id number] [place] [address]- 5621 16 Oct, 2011 [facility] [place] [facility] [address] [id number] [place] [address]- 86[address] 15 Oct, 2011 [facility] [place] [facility] [address] [id number] [place] [address]- 9267 Oct, [facility] [place] [facility] [address] [id number] [place] [address]- [address]277 Oct, [facility] [place] [facility] [address] [id number] [place] [address] Sep, [facility] [place] [facility] [address] [id number] [place] [address] Aug, [facility] [place] [facility] [address] [id number] [place] [address]- 1010 Aug, [facility] [place] [facility] [address] [id number] [place] [address] Aug, [facility] [place] [facility] [address] [id number] [place] [address]41 Aug, [facility] [place] [facility] [address] [id number] [place] [address] Aug, [facility] [place] [facility] [address] [id number] [place] [address] July, [facility] [place] [facility] [address] [id number] [place] [address]117 July, [facility] [place] [facility] [address] [id number] [place] [address] July, [facility] [place] [facility] [address] [id number] [place] [address] Jun, [facility] [place] [facility] [address] [id number] [place] [address] 1376 Jun, [facility] [place] [facility] [address] [id number] [place] [address] Jun, [facility] [place] [facility] [address] [id number] [place] [address]- 4937 Jun, [facility] [place] [facility] [address] [id number] [place] [address] 8[address] May, [facility] [place] [facility] [address] [id number] [place] [address] May, [facility] [place] [facility] [address] [id number] [place] [address] May, [facility] [place] [facility] [address] [id number] [place] [address] 28 May, 2011 [facility] [address] [id number] [place] [address]76 23 May, 2011 [facility] [address] [id number] [place] [address]16 22 May, 2011 [facility] [address] [id number] [place] [address]- [address]326 21 May, 2011 [facility] [address] [id number] [place] [address]- [address]21 19 May, 2011 [facility] [address] [id number] [place] [address]- [address] 08 May, 2011 [facility] [address] [id number] [place] [address]- [address]90 05 May, 2011 [facility] [address] [id number] [place] [address] 1534 02 May, 2011 [facility] [address] [id number] [place] [address] 6209 May, [facility] [address] [id number] [place] [address] 31 Mar, 2011 [facility] [address] [id number] [place] [address] 1506 Mar, [facility] [address] [id number] [place] [address] 5927 28 Feb, 2011 [facility] [address] [id number] [place] [address] 8801 20 Feb, 2011 [facility] [place] [facility] [address] [id number] [place] [address] 9296 20 Feb, 2011 [facility] [address] [id number] [place] [address]- 9526 15 Feb, 2011 [facility] [address] [id number] [place] [address]- 4738 13 Feb, 2011 [facility] [place] [facility] [address] [id number] [place] [address]- 2283 13 Feb, 2011 [facility] [place] [facility] [address] [id number] [place] [address] Feb, [facility] [place] [facility] [address] [id number] [place] [address] 28 Jan, 2011 [facility] [place] [facility] [address] [id number] [place] [address] 8030 Jan, [facility] [place] [facility] [address] [id number] [place] [address] Jan, [facility] [place] [facility] [address] [id number] [place] [address] 0860 Jan, [facility] [place] [facility] [address] [id number] [place] [address]- 5177 Jan, [facility] [place] [facility] [address] [id number] [place] [address]- 5909 Jan, [facility] [place] [facility] [address] [id number] [place] [address]- 6167 Dec, [facility] [place] [facility] [address] [id number] [place] [address]- 0584 Dec, [facility] [place] [facility] [address] [id number] [place] [address]- 0126 Dec, [facility] [place] [facility] [address] [id number], [place] [address] 75[address] July, [facility] [place] [facility] [address] [id number] [place] [address]- 3032 July, [facility] [place] [facility] [address] [id number] [place] [address]- 5971 Feb, [facility] [place] [facility] [address] [id number] [place] [address]- 3885 Jan, [facility] [place] [facility] [address] [id number], [place] [address]- 0649 Dec, [facility] [place] [facility] [address] [id number] [place] [address]- 2498 Dec, [facility] [place] [facility] [address] [id number], [place] [address]- 6945 Sep, [facility] [place] [facility] [address] [id number] [place] [address]- 9325 Aug, [facility] [place] [facility] [address] [id number], [place] [address]- 2805 Jun, [facility] [place] [facility] [address] [id number] [place] [address]- 6118 Jun, [facility] [place] [facility] [address] [id number], [place] [address]- 8325 Jan, [facility] [place] [facility] [address] [facility] [id number], [place] [address]- 9464 Jan, [facility] [place] [facility] [address] [id number], [place] [address]- 6904 Jan, [facility] [place] [facility] [address] [id number], [place] [address]- 8989 Jan, [facility] [place] [facility] [address] [facility] [id number], [place] [address]- 7402 Dec, [facility] [place] [facility] [address] [id number], [place] [address]- 3912 Dec, [facility] [place] [facility] [address] [id number], [place] [address]- 6234 15 Dec, 2008 [facility] [place] [facility] [address] [id number], [place] [address]- 8457 Nov, [facility] [place] [facility] [address] [id number], [place] [address]- 4287 July, [facility] [place] [facility] [address] [id number], [place] [address]- 6908 May, [facility] [place] [facility] [address] [facility] [id number] [place] [address]- [address]76 Apr, [facility] [address] [facility] [id number] [place] [address]- 1746 Feb, [facility] [address] [facility] [id number] [place] [address]- 2870 Dec, IMMUNIZATIONS No Known Immunizations SOCIAL HISTORY Never Assessed REASON FOR VISIT f/u PLAN OF CARE Activity Details Follow Up 2 Weeks Reason: VITAL SIGNS MEDICATIONS Unknown Medications RESULTS No Results PROCEDURES Procedure Date Ordered Result Body Site Psychotherapy, patient &/family, 30 minutes, established patient July 02, 2017 INSTRUCTIONS MEDICATIONS ADMINISTERED No Known Medications [...]
--- OUTSIDE RECORDS SUMMARY | 2018-06-14 14:48 | XMS REPORT ---
Author Author BEVERLY TAO Organization [facility] Address [address] [place] [address] Care Team Providers Care Interstate Bus Dispatcher Name Role Phone BEVERLY TAO Unavailable PROBLEMS Type Condition ICD9-CM Code LNT28-MC Code Onset Dates Condition Status SNOMED Code Problem Diabetes E11.9 Active 674586722 Problem Lumbar radiculopathy M54.16 Active 779707052 Problem Irritable bowel syndrome with diarrhea K58.0 Active 599368575 Problem New daily persistent headache G44.52 Active 614528110 Problem Acute bilateral low back pain with right-sided sciatica M54.41 Active 517577580 Problem FDC current 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 Z79.891 Active 101694223 Problem Bipolar 1 disorder F31.9 Active 735295605 Problem Hyperlipidemia, unspecified E78.5 Active 84288780 Problem Type 2 diabetes mellitus with complication E11.8 Active 099145179 Problem Post laminectomy syndrome M96.1 Active 95120623 Problem Eye exam normal Z01.00 Active 045587548 Problem Bipolar disorder, in partial remission, most recent episode manic F31.73 Active 22881159 Problem Extreme poverty Z59.5 Active 93623826 Problem Obesity, unspecified 278.00 Active 671520163 Problem 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 Active 98616818 Problem Hyperlipidemia 272.4 Active 89920611 Problem Non compliance with medical treatment Z91.19 Active 5726074 ALLERGIES Substance Reaction Event Type Date Status Zithromax Chest pain Drug Allergy May, Active Prednisone elevated blood sugars Drug Allergy May, Active ENCOUNTERS Encounter Location Date Diagnosis [facility] [address] [facility] [id number] [address] Nov, [facility] [address] [facility] [id number] [address] Oct, [facility] [place] [address] [address] Oct, [facility] [place] [address] [place] [address] 92642- 1431 Oct, [facility] [id number] [place] [address] 89363- 5361 Sep, Diarrhea, unspecified R19.7 and Vomiting, unspecified R11.10 [facility] [facility] [id number] [place] [address] 40795- 4984 Aug, Type 2 diabetes mellitus with complication E11.8 [facility] [id number] [place] [address] 01690- 2803 Aug, [facility] [facility] [id number] [place] [address] 48495- 4776 Aug, Bipolar 1 disorder F31.9 ; 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 and Extreme poverty Z59.5 [facility] [id number] [place] [address] 18095- 4492 Aug, 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 and Bipolar disorder, in partial remission, most recent episode manic F31.73 [facility] [id number] [place] [address] 43381- 5072 Aug, Bipolar 1 disorder F31.9 [place] [address] [place] [address] 49312- 7444 Aug, [place] [address] [place] [address] 71827- 1880 Aug, [facility] [place] [address] [place] [address] 26278- 9878 Aug, Bipolar 1 disorder F31.9 ; 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 and Extreme poverty Z59.5 [facility] [facility] [address] [place] [address] 82977- 0931 July, Type 2 diabetes mellitus with complication E11.8 [facility] [id number] [place] [address] July, Bipolar 1 disorder F31.9 ; 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 and Extreme poverty Z59.5 [facility] [id number] [place] [address] Jun, Bipolar 1 disorder F31.9 ; 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 and Extreme poverty Z59.5 [facility] [id number] [place] [address] 41865- 0317 Jun, Bipolar 1 disorder F31.9 ; 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 and Extreme poverty Z59.5 [facility] [id number] [place], [place] [address] Jun, Bipolar 1 disorder F31.9 ; 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 and Extreme poverty Z59.5 [facility] [id number] [place] [address] 03718- 4538 May, Urinary tract infection without hematuria, site unspecified N39.0 [facility] [id number] [place] [address] 91310- 9874 May, Bipolar 1 disorder F31.9 ; 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 and Extreme poverty Z59.5 [place] [address] [place] [address] 28847- 8801 Apr, Diabetes E11.9 and Breast cancer screening Z12.31 [facility] [id number] [place] [address] 15287- 3068 Apr, Bipolar 1 disorder F31.9 and 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 [facility] [address] [place] [address] 84858- 6390 Mar, Bipolar 1 disorder F31.9 ; 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 and Extreme poverty Z59.5 [facility] [address] [place] [address] 40906- 5872 Mar, New daily persistent headache G44.52 ; Leg pain 729.5 and History of carpal tunnel release Z98.890 [facility] [facility] [id number] [place] [address] 68164- 0341 Mar, Hyperlipidemia, unspecified E78.5 [facility] [id number] [place] [address] 60898- 0996 Mar, Bipolar 1 disorder F31.9 ; 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 and Extreme poverty Z59.5 [facility] [id number] [place] [address] 23974- 7176 Feb, Bipolar 1 disorder F31.9 ; 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 and Extreme poverty Z59.5 [place] [address] 694356- 8439 Feb, Diabetes E11.9 [facility] [facility] [address] 15552- 0413 Feb, Viral syndrome B34.9 [place] [address] 83521- 0152 Jan, Other viral agents as the cause of diseases classified elsewhere B97.89 and Acute upper respiratory infection, unspecified J06.9 [facility] [id number] [place] [address] 85907- 2571 Jan, Bipolar 1 disorder F31.9 and 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 [facility] [id number] [place] [address] 31015- 4394 Jan, Bipolar 1 disorder F31.9 ; 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 and Extreme poverty Z59.5 [facility] [address] [place] [address] 99439- 3413 Dec, Diabetes E11.9 [facility] [address] 14127- 9158 Dec, Diabetes E11.9 and Encounter for immunization Z23 [facility] [facility] [id number] [place] [address] 46515- 0826 Dec, Bipolar 1 disorder F31.9 ; 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 and Extreme poverty Z59.5 [facility] [address] [place] [address] 35444- 6927 Dec, Back pain M54.9 [facility] [address] [place] [address] 31569- 5662 07 Nov, 2016 [facility] [id number] [place] [address] 63489- 5004 Nov, Bipolar 1 disorder F31.9 ; 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 and Extreme poverty Z59.5 [facility] [id number] [place] [address] 17361- 7350 Nov, Bipolar 1 disorder F31.9 ; 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 and Extreme poverty Z59.5 [facility] [id number] [place] [address] 64975- 1298 Oct, 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 and Bipolar 1 disorder F31.9 [facility] [id number] [place] [address] 71998- 1399 Oct, Back pain M54.9 [facility] [id number] [place] [address] 21371- 6482 Oct, Bipolar 1 disorder F31.9 ; 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 and Extreme poverty Z59.5 [place] [address] [place] [address] 97474- 2540 Oct, 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 and Type 2 diabetes mellitus with complication E11.8 [facility] [address] [place] [address] 46722- 3172 Sep, Bipolar 1 disorder F31.9 ; 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 and Extreme poverty Z59.5 [facility] [address] [place] [address] 19540- 0756 Sep, 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 and Bipolar 1 disorder F31.9 [facility] [id number] [place] [address] 53853- 9093 Sep, Bipolar 1 disorder F31.9 ; 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 and Extreme poverty Z59.5 [facility] [id number] [place] [address] 34209- 8352 Aug, Diabetes E11.9 ; Hyperlipidemia, unspecified E78.5 and Lumbar radiculopathy M54.16 [facility] [id number] [place] [address] 16867- 1091 Aug, Bipolar 1 disorder F31.9 ; 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 and Extreme poverty Z59.5 [facility] [id number] [place] [address] 43755- 3059 Aug, [facility] [id number] [place] [address] 39337- 8026 Aug, [facility] [id number] [place] [address] 55693- 7354 Aug, [facility] [id number] [place] [address] 49862- 3451 July, [facility] [id number] [place] [address] 12695- 4715 July, Acute bilateral low back pain with right-sided sciatica M54.41 [facility] [id number] [place] [address] 10034- 1248 July, Bipolar 1 disorder F31.9 ; 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 and Extreme poverty Z59.5 [facility] [id number] [place] [address] 86453- 0671 July, Back pain M54.9 and Diabetes E11.9 [facility] [facility] [id number] [place] [address] 53119- 9669 Jun, Bipolar 1 disorder F31.9 ; 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 and Extreme poverty Z59.5 [facility] [id number] [place] [address] 93853- 1912 Jun, Bipolar 1 disorder F31.9 ; 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 and Extreme poverty Z59.5 [facility] [id number] [place] [address] 92452- 5338 May, Visit for pelvic exam Z01.419 ; Acute vaginitis N76.0 and Diabetes E11.9 [facility] [id number] [place] [address] 29401- 4382 May, Bipolar 1 disorder F31.9 ; 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 and Extreme poverty Z59.5 [place] [id number] [place] [address] 07909- 7378 May, [place] [address] 78279- 2016 May, [facility] [facility] [id number] [place] [address] 90853- 7694 May, Bipolar 1 disorder F31.9 ; 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 and Extreme poverty Z59.5 [facility] [facility] [id number] [place] [address] 47287- 1448 May, Hyperlipidemia, unspecified E78.5 [facility] [id number] [place] [address] 03259- 3239 Apr, Breast cancer screening Z12.39 [facility] [id number] [place] [address] 97034- 6521 Mar, [facility] [facility] [id number] [place] [address] 92276- 6298 Mar, Bipolar disorder, current episode mixed, unspecified F31.60 [facility] [id number] [place] [address] 28408- 3066 Mar, Bipolar 1 disorder F31.9 ; 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 and Extreme poverty Z59.5 [place] [id number] [place] [address] 65009- 4534 Feb, Acute nasopharyngitis J00 [facility] [address] [place] [address] 14015- 3514 27 Feb, 2016 Dental examination Z01.20 [facility] [id number] [place] [address] 26675- 7784 21 Feb, 2016 Dental cavities K02.9 and Chronic periodontitis, unspecified K05.30 [place] [address] 07109- 0297 13 Feb, 2016 Low back pain M54.5 and Extreme poverty Z59.5 [facility] [id number] [place] [address] 34035- 0764 08 Feb, 2016 [facility] [id number] [place] [address] 36372- 0951 05 Feb, 2016 Routine gynecological examination V72.31 ; Breast cancer screening Z12.39 and Herpes simplex type 1 infection B00.9 [facility] [id number] [place] [address] 40267- 5317 02 Feb, 2016 Diabetes E11.9 [facility] [id number] [place] [address] 84487- 4836 Feb, Encounter for dental examination and cleaning without abnormal findings Z01.20 [facility] [id number] [place] [address] 89406- 0857 22 Jan, 2016 Hyperlipidemia, unspecified E78.5 [facility] [facility] [id number] [place] [address] 82051- 1385 Jan, Bipolar 1 disorder F31.9 ; 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 and Extreme poverty Z59.5 [facility] [id number] [place] [address] 70569- 1733 18 Jan, 2016 Diabetes E11.9 [facility] [id number] [place] [address] 17698- 4384 17 Jan, 2016 Diabetes E11.9 [facility] [id number] [place] [address] 89679- 7996 14 Dec, 2015 Bipolar 1 disorder F31.9 ; 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 and Extreme poverty Z59.5 [facility] [id number] [place] [address] 20416- 0905 13 Dec, 2015 Bipolar disorder, current episode mixed, unspecified F31.60 and 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 [facility] [id number] [place] [address] 34416- 2533 16 Nov, 2015 Bipolar 1 disorder F31.9 ; 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 ; Extreme poverty Z59.5 and Non compliance with medical treatment Z91.19 [facility] [id number] [place] [address] 46715- 9843 Oct, [place] [address] 58826- 4421 Oct, Dental caries K02.9 [facility] [facility] [address] 91107- 2365 Oct, Low back pain M54.5 and Other chronic pain G89.29 [facility] [id number] [place] [address] 92040- 0656 24 Oct, 2015 Bipolar 1 disorder F31.9 ; 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 ; Extreme poverty Z59.5 and Non compliance with medical treatment Z91.19 [facility] [id number] [place] [address] 13984- 2517 Oct, [facility] [id number] [place] [address] 07320- 0845 Oct, [facility] [id number] [place] [address] 15535- 7135 Oct, Dental examination Z01.20 [facility] [id number] [place] [address] 97694- 9975 Oct, Bipolar 1 disorder F31.9 ; 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 ; Extreme poverty Z59.5 and Non compliance with medical treatment Z91.19 [facility] [facility] [address] [address]- 0031 Oct, [place] [address] [place] [address] 54755- 1999 Sep, Type 2 diabetes mellitus with complication E11.8 [facility] [address] [place] [address] 46841- 0218 Sep, Bipolar disorder, current episode mixed, unspecified F31.60 [facility] [address] [place] [address] 06443- 7057 Sep, Bipolar disorder, current episode mixed, unspecified F31.60 [facility] [address] [place] [address] 98762- 6038 Sep, Bipolar disorder, in partial remission, most recent episode manic F31.73 ; 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 ; Extreme poverty Z59.5 and Non compliance with medical treatment Z91.19 [place] [address] [place] [address] 58422- 7623 Aug, Bipolar disorder, in partial remission, most recent episode manic F31.73 ; 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 ; Extreme poverty Z59.5 and Non compliance with medical treatment Z91.19 [place] [address] [address] Aug, Bipolar disorder, in partial remission, most recent episode manic F31.73 ; 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 ; Extreme poverty Z59.5 and Non compliance with medical treatment Z91.19 [facility] [id number] [address]- 4715 Aug, [place] [address] [place] [address] 27389- 9110 July, Bipolar disorder, in partial remission, most recent episode manic F31.73 ; 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 ; Extreme poverty Z59.5 and Non compliance with medical treatment Z91.19 [place] [address] [place] [address] 46036- 9089 July, Bipolar disorder, current episode mixed, unspecified F31.60 [facility] [address] [place] [address] 76714- 0115 July, Bipolar disorder, in partial remission, most recent episode manic F31.73 ; 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 ; Extreme poverty Z59.5 and Non compliance with medical treatment Z91.19 [facility] [address] [place] [address] 23229- 0089 July, FDC current 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 Z79.891 and Chronic pain G89.29 [place] [address] [place] [address] 01541- 6566 Jun, FDC current 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 Z79.891 and Bipolar 1 disorder F31.9 [facility] [id number] [place] [address] 36129- 0183 Jun, [place] [facility] [id number] [place] [address] 88502- 4750 Jun, [facility] [id number] [place] [address] 76645- 1019 Jun, [facility] [address] [place] [address] 22222- 4730 Jun, Bipolar disorder, in partial remission, most recent episode manic F31.73 ; 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 and Non compliance with medical treatment Z91.19 [facility] [facility] [address] [place] [address] 69549- 4204 May, Bipolar disorder, in partial remission, most recent episode manic F31.73 ; 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 and Non compliance with medical treatment Z91.19 [facility] [address] [place] [address] 36413- 9488 May, Bipolar disorder, in partial remission, most recent episode manic F31.73 [facility] [facility] [id number] [place] [address] 51087- 0118 May, Diabetes E11.9 and Chronic pain G89.29 [facility] [facility] [address] [place] [address] 21766- 6357 May, [place] [facility] [id number] [place] [address] 85916- 3472 May, Bipolar disorder, in partial remission, most recent episode manic F31.73 ; Non compliance with medical treatment Z91.19 and 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 [facility] [address] [place] [address] 35109- 6040 May, Type 2 diabetes mellitus with complication E11.8 and Back pain M54.9 [facility] [address] [place] [address] 37751- 7205 May, Bipolar disorder, in partial remission, most recent episode manic F31.73 and 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 [facility] [address] [place] [address] 95185- 3940 Apr, [place] [facility] [id number] [place] [address] 39774- 8067 Apr, [facility] [address] [place] [address] 43485- 5971 Apr, [facility] [facility] [id number] [place] [address] 55760- 2165 Apr, Diabetes E11.9 ; Irritable bowel syndrome with diarrhea K58.0 and Lumbar radiculopathy M54.16 [facility] [facility] [address] [place] [address] 50347- 5973 Apr, Breast screening Z12.39 [facility] [address] [place] [address] 75952- 4130 Apr, Bipolar disorder, in partial remission, most recent episode manic F31.73 ; Non compliance with medical treatment Z91.19 and 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 [facility] [id number] [place] [address] 13225- 7305 Mar, Edema, unspecified type R60.9 and Type 2 diabetes mellitus with complication E11.8 [facility] [id number] [place] [address] 29324- 7355 Mar, Bipolar disorder, in partial remission, most recent episode manic F31.73 ; Non compliance with medical treatment Z91.19 ; 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 and Extreme poverty Z59.5 [place] [id number] [place] [address] 84079- 8889 Mar, Bipolar disorder, current episode mixed, unspecified F31.60 ; 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 ; Extreme poverty Z59.5 and Generalized anxiety disorder F41.1 [facility] [id number] [place] [address] 49260- 8935 Mar, Bipolar disorder, in partial remission, most recent episode manic F31.73 ; 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 and Extreme poverty Z59.5 [place] [address] [place] [address] 48521- 9884 Feb, Bipolar disorder, in partial remission, most recent episode manic F31.73 ; 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 and Extreme poverty Z59.5 [place] [address] [place] [address] 42147- 5587 Feb, Bipolar disorder, in partial remission, most recent episode manic F31.73 ; 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 and Extreme poverty Z59.5 [place] [address] [place] [address] 68015- 0736 Feb, [place] [id number] [place] [address] 92499- 3186 Jan, Type 2 diabetes mellitus with complication E11.8 and Petechiae R23.3 [place] [address] [place] [address] 52450- 7834 Jan, Type 2 diabetes mellitus with complication E11.8 ; Edema, unspecified R60.9 ; Petechiae R23.3 and Diabetes E11.9 [place] [address] 95349- 0500 Jan, Bipolar disorder, in partial remission, most recent episode manic F31.73 ; 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 and Extreme poverty Z59.5 [place] [address] 62316- 2277 Jan, Bipolar disorder, in partial remission, most recent episode manic F31.73 ; 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 and Extreme poverty Z59.5 [place] [address] 63938- 2381 Dec, Bipolar disorder, in partial remission, most recent episode manic F31.73 [place] [address] [address] Dec, Edema, due to unspecified malnutrition type, unspecified edema R60.9 and Essential hypertension I10 [place] [address] [address] Dec, Bipolar disorder, in partial remission, most recent episode manic F31.73 [place] [address] [address] Nov, Bipolar I disorder, most recent episode (or current) mixed, unspecified 296.60 [place] [address] [address] Nov, Stress incontinence, female 625.6 ; Back pain 724.5 and Leg pain 729.5 [place] [address] [address] 3857 18 Nov, 2014 Generalized anxiety disorder 300.02 and Bipolar II disorder 296.89 [place] [address] [address] Nov, Bipolar I disorder, most recent episode (or current) mixed, unspecified 296.60 [place] [address] [address] 7801 Oct, [facility] [place] [address] [address] Oct, [facility] [place] [address] [address] [address] Oct, [facility] [place] [address] [address] Oct, Bipolar I disorder, most recent episode (or current) mixed, unspecified 296.60 [facility] [place] [address] [address] 13[address] Sep, Diabetes 250.00 [facility] [place] [id number] [place] [address]90- 3688 Sep, Bipolar I disorder, most recent episode (or current) mixed, unspecified 296.60 [facility] [place] [address] [address] 0947 Sep, [facility] [place] [address] [address] 7[address] Sep, [facility] [place] [address] [address] 0258 Sep, Bipolar I disorder, most recent episode (or current) mixed, unspecified 296.60 [facility] [place] [address] [address] 6566 Sep, Bipolar I disorder, most recent episode (or current) mixed, unspecified 296.60 [facility] [place] [address] [address]- 0747 Sep, [facility] [place] [address] [address] [address] Sep, Anxiety 300.00 ; Diabetes 250.00 and Hyperlipidemia 272.4 [facility] [place] [address] [address] 6[address] Aug, [facility] [place] [id number] [address] 3733 Aug, [facility] [place] [address] [place] [id number] [place] [address] 46136- 0163 Aug, [facility] [place] [id number] [place] [address] 932162- 4835 Aug, Bipolar I disorder, most recent episode (or current) mixed, unspecified 296.60 [facility] [place] [id number] [place] [address] 95328- 2501 Aug, Generalized anxiety disorder 300.02 and Bipolar II disorder 296.89 [facility] [place] [id number] [place] [address] 691830- 6992 July, Bipolar I disorder, most recent episode (or current) mixed, unspecified 296.60 [facility] [place] [id number] [place] [address] 51408- 1491 July, Cough 786.2 [facility] [place] [id number] [place] [address] 68844- 4730 July, Bipolar I disorder, most recent episode (or current) mixed, unspecified 296.60 [facility] [place] [id number] [place] [address] 05841- 7800 Jun, Diabetes 250.00 [facility] [place] [address] [id number] [place] [address] 29403- 3338 14 Jun, 2014 [facility] [place] [id number] [place] [address] 18847- 6777 Jun, [facility] [place] [address] [address]- 4919 May, [facility] [place] [address] [id number] [place] [address] 05765- 4999 May, [facility] [place] [address] [address]- 8886 May, [facility] [place] [id number] [place] [address] 23147- 9916 May, [facility] [place] [facility] [address] [id number] [place] [address]- 7826 May, [facility] [place] [facility] [address] [id number] [place] [address]- 1427 May, [facility] [place] [facility] [address] [facility] [id number] [place] [address]- 1336 Apr, [facility] [place] [facility] [address] [id number] [place] [address]- 3954 Apr, 2014 [facility] [place] [facility] [address] [id number] [place] [address]- 9282 Apr, [facility] [place] [facility] [address] [id number] [place] [address]- 2463 Apr, [facility] [place] [facility] [address] [facility] [id number] [place] [address]- 6228 Apr, [facility] [place] [facility] [address] [id number] [place] [address]- 3469 Apr, [facility] [place] [facility] [address] [facility] [id number] [place] [address]- 8957 Apr, [facility] [place] [facility] [address] [facility] [id number] [place] [address]- 1999 Apr, [facility] [place] [facility] [address] [facility] [id number] [place] [address]- 9165 Mar, [facility] [place] [facility] [address] [id number] [place] [address]- 3732 Mar, [facility] [place] [facility] [address] [id number] [place] [address]- 7513 Mar, [facility] [place] [facility] [address] [facility] [id number] [place] [address]- 9516 Mar, [facility] [place] [facility] [address] [facility] [id number] [address]- 6191 Mar, [facility] [place] [facility] [address] [id number] [place] [address]- 3626 Mar, [facility] [place] [facility] [address] [id number] [place] [address]- 4761 Mar, [facility] [place] [facility] [address] [id number] [place] [address]- 8604 Mar, [facility] [place] [facility] [address] [id number] [place] [address]- 1601 Feb, [facility] [place] [facility] [address] [id number] [place] [address]- 7442 Feb, [facility] [place] [facility] [address] [id number] [place] [address]- 2695 Feb, [facility] [place] [facility] [address] [id number] [place] [address]- 2518 Feb, [facility] [place] [facility] [address] [id number] [place] [address]- 1668 Feb, [facility] [place] [facility] [address] [id number] [place] [address]- 4777 Feb, [facility] [place] [facility] [address] [id number] [place] [address]- 8467 Feb, [facility] [place] [facility] [address] [id number] [place] [address]- 7060 Feb, [facility] [place] [facility] [address] [id number] [place] [address]- 7957 Feb, [facility] [place] [facility] [address] [id number] [place] [address]- 4637 Feb, [facility] [place] [facility] [address] [id number] [place] [address]- 7778 Jan, [facility] [place] [facility] [address] [id number] [place] [address]- 2780 Jan, [facility] [place] [facility] [address] [id number] [address]- 5752 Jan, [facility] [place] [facility] [address] [id number] [place] [address]- 6298 Jan, [facility] [place] [facility] [address] [id number] [place] [address]- 7911 Jan, [facility] [place] [facility] [address] [id number] [place] [address]- 4315 Jan, [facility] [place] [facility] [address] [id number] [address]- 6223 Jan, [facility] [place] [facility] [address] [id number] [place] [address]- 3044 Jan, [facility] [place] [facility] [address] [id number] [place] [address]- 7318 Jan, [facility] [place] [facility] [address] [id number] [place] [address]- 2409 Jan, [facility] [place] [facility] [address] [id number] [place] [address]- 0357 Jan, [facility] [place] [facility] [address] [id number] [place] [address]- 0651 Jan, [facility] [place] [facility] [address] [id number] [place] [address]- 8443 Jan, [facility] [place] [facility] [address] [id number] [place] [address]- 1575 Jan, [facility] [place] [facility] [address] [id number] [place] [address]- 2211 Jan, [facility] [place] [facility] [address] [id number] [place] [address]- 1269 Dec, [facility] [place] [facility] [address] [id number] [place] [address]- 2116 Dec, [facility] [place] [facility] [address] [id number] [place] [address]- 6838 16 Dec, 2013 [facility] [place] [facility] [address] [id number] [place] [address]- 7060 16 Dec, 2013 [facility] [place] [facility] [address] [id number] [place] [address]- 1984 09 Dec, 2013 [facility] [place] [facility] [address] [id number] [place] [address]- 1224 09 Dec, 2013 [facility] [place] [facility] [address] [id number] [place] [address]- 7814 07 Dec, 2013 [facility] [place] [facility] [address] [id number] [place] [address]- 7376 07 Dec, 2013 [facility] [place] [facility] [address] [id number] [place] [address]- 8192 25 Sep, 2013 [facility] [place] [facility] [address] [id number] [place] [address]- 1476 25 Sep, 2013 [facility] [place] [facility] [address] [id number] [place] [address]- 7732 10 Sep, 2013 [facility] [place] [facility] [address] [id number] [place] [address]- 2026 10 Sep, 2013 [facility] [place] [facility] [address] [id number] [place] [address]- 2875 08 Sep, 2013 [facility] [place] [facility] [address] [id number] [place] [address]- 1827 08 Sep, 2013 [facility] [place] [facility] [address] [id number] [place] [address]- 2540 08 Sep, 2013 [facility] [place] [facility] [address] [id number] [place] [address]- 2544 08 Sep, 2013 [facility] [place] [facility] [address] [id number] [place] [address]- 2541 08 Sep, 2013 [facility] [place] [facility] [address] [id number] [place] [address]- 2545 08 Sep, 2013 [facility] [place] [facility] [address] [id number] [place] [address]- 6057 Nov, [facility] [place] [facility] [address] [id number] [place] [address]- 6107 04 Nov, 2013 [facility] [place] [facility] [address] [id number] [place] [address]- 2319 Nov, [facility] [place] [facility] [address] [id number] [place] [address]- 7738 Nov, [facility] [place] [facility] [address] [id number] [place] [address]- 4206 Nov, [facility] [place] [facility] [address] [id number] [place] [address]- 9464 Oct, [facility] [place] [facility] [address] [id number] [place] [address]- 8594 Oct, [facility] [place] [facility] [address] [id number] [place] [address]- 2161 Oct, [facility] [place] [facility] [address] [id number] [place] [address]- 2747 Oct, [facility] [place] [facility] [address] [id number] [place] [address]- 0551 Oct, [facility] [place] [facility] [address] [id number] [place] [address]- 4437 Oct, [facility] [place] [facility] [address] [id number] [place] [address]- 1031 Oct, [facility] [place] [facility] [address] [id number] [place] [address]- 5903 Oct, [facility] [place] [facility] [address] [id number] [place] [address]- 4766 Oct, [facility] [place] [facility] [address] [id number] [place] [address]- 4845 Oct, [facility] [place] [facility] [address] [id number] [place] [address]- 9787 Oct, [facility] [place] [facility] [address] [id number] [place] [address]- 2861 Oct, [facility] [place] [facility] [address] [id number] [place] [address]- 0087 Oct, [facility] [place] [facility] [address] [id number] [place] [address]- 0249 Oct, [facility] [place] [facility] [address] [id number] [place] [address]- 6236 Sep, [facility] [place] [facility] [address] [id number] [place] [address]- 8477 Sep, [facility] [place] [facility] [address] [id number] [place] [address]- 4736 Sep, [facility] [place] [facility] [address] [id number] [place] [address]- 8645 Sep, [facility] [place] [facility] [address] [id number] [place] [address]- 1527 Sep, [facility] [place] [facility] [address] [id number] [place] [address]- 4289 Sep, [facility] [place] [facility] [address] [id number] [place] [address]- 3525 Sep, [facility] [place] [facility] [address] [id number] [place] [address]- 9281 Sep, [facility] [place] [facility] [address] [id number] [place] [address]- 6917 Aug, [facility] [place] [facility] [address] [id number] [place] [address]- 2189 Aug, [facility] [place] [facility] [address] [id number] [place] [address]- 0492 Aug, [facility] [place] [facility] [address] [id number] [place] [address]- 8847 Aug, [facility] [place] [facility] [address] [id number] [place] [address]- 7869 Aug, [facility] [place] [facility] [address] [id number] [place] [address]- 3995 Aug, [facility] [place] [facility] [address] [id number] [place] [address]- 9435 Aug, [facility] [place] [facility] [address] [id number] [place] [address]- 3911 Aug, [facility] [place] [facility] [address] [id number] [place] [address]- 2770 July, [facility] [place] [facility] [address] [id number] [place] [address]- 3267 July, [facility] [place] [facility] [address] [id number] [place] [address]- 4656 July, [facility] [place] [facility] [address] [id number] [place] [address]- 8235 July, [facility] [place] [facility] [address] [id number] [place] [address]- 0909 July, [facility] [place] [facility] [address] [id number] [place] [address]- 4110 July, [facility] [place] [facility] [address] [id number] [place] [address]- 4942 July, [facility] [place] [facility] [address] [id number] [place] [address]- 6555 July, [facility] [place] [facility] [address] [id number] [place] [address]- 3976 Jun, [facility] [place] [facility] [address] [id number] [place] [address]- 3727 Jun, [facility] [place] [facility] [address] [id number] [place] [address]- 5952 Jun, [facility] [place] [facility] [address] [id number] [place] [address]- 7865 Jun, [facility] [place] [facility] [address] [id number] [place] [address]- 2069 Jun, [facility] [place] [facility] [address] [id number] [place] [address]- 7201 Jun, [facility] [place] [facility] [address] [id number] [place] [address]- 6838 Jun, [facility] [place] [facility] [address] [id number] [place] [address]- 6000 Jun, [facility] [place] [facility] [address] [id number] [place] [address]- 5204 Jun, [facility] [place] [facility] [address] [id number] [place] [address]- 1434 Jun, [facility] [place] [facility] [address] [id number] [place] [address]- 7226 Jun, [facility] [place] [facility] [address] [id number] [place] [address]- 5142 Jun, [facility] [place] [facility] [address] [id number] [place] [address]- 7834 May, [facility] [place] [facility] [address] [id number] [place] [address]- 1916 May, [facility] [place] [facility] [address] [id number] [place] [address]- 2881 May, [facility] [place] [facility] [address] [id number] [place] [address]- 5639 May, [facility] [place] [facility] [address] [id number] [place] [address]- 0801 May, [facility] [place] [facility] [address] [id number] [place] [address]- 1440 May, [facility] [place] [facility] [address] [id number] [place] [address]- 6372 May, [facility] [place] [facility] [address] [id number] [place] [address]- 1344 May, [facility] [place] [facility] [address] [id number] [place] [address]- 1914 11 May, 2013 [facility] [place] [facility] [address] [id number] [place] [address]- 5324 May, [facility] [place] [facility] [address] [id number] [place] [address]- 9416 May, [facility] [place] [facility] [address] [id number] [place] [address]- 2564 May, [facility] [place] [facility] [address] [id number] [place] [address]- 7324 May, [facility] [place] [facility] [address] [id number] [place] [address]- 7591 May, [facility] [place] [facility] [address] [id number] [place] [address]- 4622 Apr, [facility] [place] [facility] [address] [id number] [place] [address]- 2339 Apr, [facility] [place] [facility] [address] [id number] [place] [address]- 4128 Apr, [facility] [place] [facility] [address] [id number] [place] [address]- 6191 Apr, [facility] [place] [facility] [address] [facility] [id number] [place] [address]- 7256 Apr, [facility] [place] [facility] [address] [id number] [place] [address]- 7234 Apr, [facility] [place] [facility] [address] [id number] [place] [address]- 0784 Mar, [facility] [place] [facility] [address] [id number] [place] 1458 Mar, [facility] [place] [facility] [address] [id number] [place] [address]- 1089 Mar, [facility] [place] [facility] [address] [id number] [place] [address]- 0770 Mar, [facility] [place] [facility] [address] [id number] [place] [address]- 1032 Mar, [facility] [place] [facility] [address] [id number] [place] [address]- 6735 Mar, [facility] [place] [facility] [address] [id number] [place] [address]- 3798 Mar, [facility] [place] [facility] [address] [id number] [place] [address]- 5155 Mar, [facility] [place] [facility] [address] [id number] [place] [address]- 8978 Mar, [facility] [place] [facility] [address] [id number] [place] [address]- 8615 Mar, [facility] [place] [facility] [address] [id number] [place] [address]- 5583 Mar, [facility] [place] [facility] [address] [id number] [place] [address]- 7737 Mar, [facility] [place] [facility] [address] [id number] [place] [address]- 8733 Mar, [facility] [place] [facility] [address] [id number] [place] [address]- 8948 Mar, [facility] [place] [facility] [address] [id number] [place] [address]- 9605 Feb, [facility] [place] [facility] [address] [id number] [place] [address]- 6058 Feb, [facility] [place] [facility] [address] [id number] [place] [address] Feb, [facility] [place] [facility] [address] [id number] [place] [address] Feb, [facility] [place] [facility] [address] [id number] [place] [address] Feb, [facility] [place] [facility] [address] [id number] [place] [address] 30 Feb, 2012 [facility] [address] [id number] [place] [address] Feb, 2012 [facility] [place] [facility] [address] [id number] [place] [address] Feb, 2012 [facility] [address] [id number] [place] [address] Feb, 2012 [facility] [place] [facility] [address] [id number] [place] [address] Feb, 2012 [facility] [address] [id number] [place] [address] Feb, 2012 [facility] [address] [id number] [place] [address] Feb, 2012 [facility] [address] [id number] [place] [address] Feb, 2012 [facility] [place] [facility] [address] [id number] [place] [address] Feb, [facility] [address] [id number] [place] [address] Feb, 2012 [facility] [place] [facility] [address] [id number] [place] [address] Feb, [facility] [place] [facility] [address] [id number] [place] [address] 24 Dec, 2012 [facility] [place] [facility] [address] [id number] [place] [address] 24 Dec, 2012 [facility] [place] [facility] [address] [id number] [place] [address] 16 Dec, 2012 [facility] [place] [facility] [address] [id number] [place] [address] Dec, 2012 [facility] [place] [facility] [address] [facility] [id number] [place] [address] 16 Dec, 2012 [facility] [place] [facility] [address] [id number] [place] [address]- [address] 16 Dec, 2012 [facility] [place] [facility] [address] [id number] [place] [address]- [address] 14 Dec, 2012 [facility] [place] [facility] [address] [id number] [place] [address]- [address] 14 Dec, 2012 [facility] [place] [facility] [address] [id number] [place] [address] 10 Dec, 2012 [facility] [place] [facility] [address] [id number] [place] [address]- 4699 10 Dec, 2012 [facility] [place] [facility] [address] [id number] [place] [address] 10 Dec, 2012 [facility] [place] [facility] [address] [id number] [place] [address] 10 Dec, 2012 [facility] [place] [facility] [address] [id number] [place] [address] 03 Dec, 2012 [facility] [place] [facility] [address] [id number] [place] [address] 25 Sep, 2012 [facility] [place] [facility] [address] [id number] [place] [address]43 20 Sep, 2012 [facility] [place] [facility] [address] [id number] [place] [address] 2541 18 Sep, 2012 [facility] [place] [facility] [address] [id number] [place] [address]- 254 16 Sep, 2012 [facility] [place] [facility] [address] [id number] [place] [address] 2545 12 Sep, 2012 [facility] [place] [facility] [address] [id number] [place] [address] 2546 11 Sep, 2012 [facility] [place] [facility] [address] [id number] [place] [address]40 05 Sep, 2012 [facility] [place] [facility] [address] [id number] [place] [address] Oct, [facility] [place] [facility] [address] [id number] [place] [address] Oct, [facility] [place] [facility] [address] [id number] [place] [address] Sep, [facility] [place] [facility] [address] [id number] [place] [address]- [address]87 Sep, [facility] [place] [facility] [address] [id number] [place] [address] Sep, [facility] [place] [facility] [address] [id number] [place] [address] Sep, [facility] [place] [facility] [address] [id number] [place] [address] Sep, [facility] [place] [facility] [address] [id number] [place] [address]- [address] Sep, [facility] [place] [facility] [address] [id number] [place] [address] Sep, [facility] [place] [facility] [address] [id number] [place] [address] Aug, [facility] [place] [facility] [address] [id number] [place] [address] 39[address] Aug, [facility] [place] [facility] [address] [id number] [place] [address] 16 Aug, 2012 [facility] [place] [facility] [address] [id number] [place] [address] 13 Aug, 2012 [facility] [place] [facility] [address] [id number] [place] [address] 11 Aug, 2012 [facility] [place] [facility] [address] [id number] [place] [address]- 0875 10 Aug, 2012 [facility] [place] [facility] [address] [id number] [place] [address]- 30[address] 04 Aug, 2012 [facility] [place] [facility] [address] [id number] [place] [address]- 60[address] Aug, [facility] [address] [id number] [place] [address] July, [facility] [address] [id number] [place] [address] July, [facility] [address] [id number] [place] [address] July, [facility] [address] [id number] [place] [id number] July, [facility] [address] [id number] [place] [address] July, [facility] [address] [id number] [place] [address] Jun, [facility] [address] [id number] [place] [address] May, [facility] [address] [id number] [place] [address] May, [facility] [address] [id number] [place] [address]- [address] May, [facility] [address] [id number] [place] [address] 7068 Apr, [facility] [address] [id number] [place] [address] Apr, [facility] [address] [id number] [place] [address] Apr, [facility] [address] [id number] [place] [address] Mar, [facility] [address] [id number] [place] [address] Mar, [facility] [address] [id number] [place] [address] Mar, [facility] [address] [id number] [place] [address] 14 Mar, 2012 [facility] [address] [id number] [place] [address] 118[address] 10 Mar, 2012 [facility] [address] [id number] [place] [address] 70[address] 09 Mar, 2012 [facility] [address] [id number] [place] [address] Mar, [facility] [address] [id number] [place] [address] 113[address] Feb, [facility] [address] [id number] [place] [address] Feb, [facility] [address] [id number] [place] [address] Feb, [facility] [address] [id number] [place] [address] 18 Feb, 2012 [facility] [address] [id number] [place] [address] 75[address] Feb, [facility] [address] [id number] [place] [address] Feb, [facility] [address] [id number] [place] [address] 86[address] Feb, [facility] [place] [facility] [address] [id number] [place] [address] 89[address] Feb, [facility] [place] [facility] [address] [id number] [place] [address] Jan, [facility] [place] [facility] [address] [id number] [place] [address] Jan, [facility] [place] [facility] [address] [id number] [place] [address] Jan, [facility] [place] [facility] [address] [id number] [place] [address] Jan, [facility] [place] [facility] [address] [id number] [place] [address] 1590 Jan, [facility] [place] [facility] [address] [id number] [place] [address] Jan, [facility] [place] [facility] [address] [facility] [id number] [place] [address] Jan, [facility] [place] [facility] [address] [id number] [place] [address]120 Jan, [facility] [place] [facility] [address] [id number] [place] [address] 2019 Jan, [facility] [place] [facility] [address] [id number] [place] [address] Jan, [facility] [place] [facility] [address] [id number] [place] [address] Jan, [facility] [place] [facility] [address] [id number] [place] [address] Jan, [facility] [place] [facility] [address] [id number] [place] [address] Jan, [facility] [place] [facility] [address] [facility] [id number] [place] [address] Jan, [facility] [place] [facility] [address] [id number] [place] [address] Jan, [facility] [place] [facility] [address] [id number] [place] [address] Jan, [facility] [place] [facility] [address] [id number] [place] [address] 79[address] Dec, [facility] [place] [facility] [address] [id number] [place] [address] Dec, [facility] [place] [facility] [address] [facility] [id number] [place] [address] 16 Dec, 2011 [facility] [place] [facility] [address] [id number] [place] [address] 16 Dec, 2011 [facility] [place] [facility] [address] [id number] [place] [address] 8610 Dec, [facility] [place] [facility] [address] [id number] [place] [address] 3424 Dec, [facility] [place] [facility] [address] [id number] [place] [address] 9341 Dec, [facility] [place] [facility] [address] [id number] [place] [address] 27[address] Dec, [facility] [place] [facility] [address] [id number] [place] [address]- 3613 08 Dec, 2011 [facility] [place] [facility] [address] [id number] [place] [address]- [address]29 05 Dec, 2011 [facility] [place] [facility] [address] [id number] [place] [address]555 18 Nov, 2011 [facility] [place] [facility] [address] [id number] [place] [address] 13 Nov, 2011 [facility] [place] [facility] [address] [id number] [place] [address] 24 Oct, 2011 [facility] [place] [facility] [address] [id number] [place] [address] 7733 Oct, [facility] [place] [facility] [address] [id number] [place] [address]- 1845 17 Oct, 2011 [facility] [place] [facility] [address] [id number] [place] [address]- 8602 16 Oct, 2011 [facility] [place] [facility] [address] [id number] [place] [address]- 2071 Oct, [facility] [place] [facility] [address] [id number] [place] [address]- 2523 Oct, [facility] [place] [facility] [address] [id number] [place] [address] 4325 Oct, [facility] [place] [facility] [address] [id number] [place] [address]- 54[address] Sep, [facility] [place] [facility] [address] [id number] [place] [address] 9702 Aug, [facility] [place] [facility] [address] [id number] [place] [address]- 5724 Aug, [facility] [place] [facility] [address] [id number] [place] [address]- 0226 Aug, [facility] [place] [facility] [address] [id number] [place] [address] 9414 Aug, [facility] [place] [facility] [address] [id number] [place] [address]326 Aug, [facility] [place] [facility] [address] [id number] [place] [address]- 0966 July, [facility] [place] [facility] [address] [id number] [place] [address] 4001 July, [facility] [place] [facility] [address] [id number] [place] [address]- 6742 July, [facility] [place] [facility] [address] [id number] [place] [address]- 0026 Jun, [facility] [place] [facility] [address] [id number] [place] [address]- 2695 Jun, [facility] [place] [facility] [address] [id number] [place] [address]- 6292 Jun, [facility] [place] [facility] [address] [id number] [place] [address]- 6598 Jun, [facility] [place] [facility] [address] [id number] [place] [address] May, [facility] [place] [facility] [address] [id number] [place] [address]- 7056 May, [facility] [place] [facility] [address] [id number] [place] [address]- 2246 29 May, 2011 [facility] [address] [id number] [place] [address]- 5776 28 May, 2011 [facility] [place] [facility] [address] [id number] [place] [address]- 4976 23 May, 2011 [facility] [place] [facility] [address] [id number] [place] [address]- 2196 22 May, 2011 [facility] [place] [facility] [address] [id number] [place] [address]- 6036 21 May, 2011 [facility] [place] [facility] [address] [id number] [place] [address]- 3420 19 May, 2011 [facility] [place] [facility] [address] [id number] [place] [address]- 5356 08 May, 2011 [facility] [place] [facility] [address] [id number] [place] [address]- 8895 05 May, 2011 [facility] [place] [facility] [address] [id number] [place] [address]- 0782 02 May, 2011 [facility] [place] [facility] [address] [id number] [place] [address]- 0435 May, [facility] [place] [facility] [address] [id number] [place] [address]- 2345 31 Mar, 2011 [facility] [place] [facility] [address] [id number] [place] [address]- 8961 Mar, [facility] [place] [facility] [address] [id number] [place] [address]- 3428 28 Feb, 2011 [facility] [place] [facility] [address] [id number] [place] [address]- 3116 Feb, [facility] [place] [facility] [address] [id number] [place] [address]- 2976 Feb, [facility] [place] [facility] [address] [id number] [place] [address]- 5277 15 Feb, 2011 [facility] [place] [facility] [address] [id number] [place] [address]- 7332 13 Feb, 2011 [facility] [place] [facility] [address] [id number] [place] [address]- 1392 Feb, [facility] [place] [facility] [address] [id number] [place] [address]- 8653 Feb, [facility] [place] [facility] [address] [id number] [place] [address]- 4076 Jan, [facility] [place] [facility] [address] [id number] [place] [address]- 6380 Jan, [facility] [place] [facility] [address] [id number] [place] [address]- 6146 Jan, [facility] [place] [facility] [address] [id number] [place] [address]- 9134 Jan, [facility] [place] [facility] [address] [id number] [place] [address]- 8193 Jan, [facility] [place] [facility] [address] [id number] [place] [address]- 9993 Jan, [facility] [place] [facility] [address] [id number] [place] [address]- 7680 Dec, [facility] [place] [facility] [address] [id number] [place] [address]- 5834 Dec, [facility] [place] [facility] [address] [id number] [place] [address]- 3634 Dec, [facility] [place] [facility] [address] [id number] [place] [address]- 6894 July, [facility] [place] [facility] [address] [id number] [place] [address]- 0934 July, [facility] [place] [facility] [address] [id number] [place] [address]- 8365 08 Feb, 2010 [facility] [place] [facility] [address] [id number] [place] [address]- 0620 Jan, [facility] [place] [facility] [address] [id number] [place] [address]- 2203 Dec, [facility] [place] [facility] [address] [id number] [place] [address]- 3492 Dec, [facility] [place] [facility] [address] [facility] [id number] [place] [address]- 8980 Sep, [facility] [place] [facility] [address] [id number] [place] [address]- 8294 Aug, [facility] [place] [facility] [address] [id number] [place] [address]- 5808 Jun, [facility] [place] [facility] [address] [id number] [place] [address]- 6298 Jun, [facility] [place] [facility] [address] [id number] [place] [address]- 8513 Jan, [facility] [place] [facility] [address] [id number] [place] [address]- 6894 Jan, [facility] [place] [facility] [address] [id number] [place] [address]- 4891 Jan, [facility] [place] [facility] [address] [facility] [id number] [place] [address]- 9561 Jan, [facility] [place] [facility] [address] [id number] [place] [address]- 7544 29 Dec, 2008 [facility] [place] [facility] [address] [id number] [place] [address]- 8046 Dec, [facility] [place] [facility] [address] [id number] [place] [address]- 4623 Dec, [facility] [place] [facility] [address] [facility] [id number] [place] [address] Nov, [facility] [place] [facility] [address] [id number] [place] [address]- 5920 July, [facility] [place] [facility] [address] [facility] [id number] [place] [id number] May, [facility] [place] [address] [facility] [id number] [place] [address]- 0810 Apr, [facility] [place] [address] [facility] [id number] [place] [address]- 3965 Feb, [place] [address] [facility] [id number] [place] [address]- 4[address] Dec, IMMUNIZATIONS No Known Immunizations SOCIAL HISTORY Never Assessed REASON FOR VISIT bladder infection----Marco A, ER Wednesday, called for records PLAN OF CARE Activity Details Follow Up prn Reason: VITAL SIGNS Height 64 in 2017-06-14 Weight 182 lbs 2017-06-14 Temperature 98.8 degrees Fahrenheit 2017-06-14 Heart Rate 100 bpm 2017-06-14 Respiratory Rate 20 2017-06-14 BMI 31.24 kg/m2 2017-06-14 Blood pressure systolic 104 mmHg 2017-06-14 Blood pressure diastolic 62 mmHg 2017-06-14 MEDICATIONS Medication Instructions Dosage Frequency Start Date End Date Duration Status NovoLog Mix 70/30 Flexpen (70-30) 100 UNIT/ML Subcutaneous 2 times a day Inject 110 12h Active Ativan 0.5 MG Orally Once a day, no early refills 1 tablet as needed Sep, Active Farxiga 10 MG Orally Once a day 1 tablet 24h Apr, 90 days Active Test strips Contour test strips 2 times a day test blood sugar 12h Aug, Active Celexa 40 MG Orally Once a day 1 tablet 24h May, 30 days Active Toprol XL 25 mg take 1 tablet by Oral route 1 time per day take at hs May, Active Cephalexin 500 mg Orally 3 times a day 1 capsule 8h May, Active Lamictal 200 MG Orally every evening 1 tablet May, 30 days Active Simvastatin 80 MG Orally Once a day 1 tablet in the evening 24h Sep, 90 days Active Tizanidine HCl 4 MG Orally Once a day 1 tablet as needed at bedtime 24h July, 30 days Active Victoza 18 MG/3ML Subcutaneous Once a day inject 1.8 ml 24h Active Amaryl 4 MG Orally Once a day in AM 1 tablet with breakfast or the first main meal of the day Sep, 30 day(s) Active Aspirin Adult Low Strength 81 MG Orally Once a day 1 tablet 24h Active Actos 45 MG Orally Once a day #60 samples 1 tablet Apr, Active RESULTS No Results PROCEDURES No Known [...]
--- OUTSIDE RECORDS SUMMARY | 2018-06-14 14:50 | XMS REPORT ---
Author Author ARIAN US Organization [facility] Address [address] [place] [address] Care Team Providers Care Software Applications Architect Name Role Phone ARIAN US Unavailable PROBLEMS Type Condition ICD9-CM Code GUR35-NO Code Onset Dates Condition Status SNOMED Code Problem Diabetes E11.9 Active 003872931 Problem Lumbar radiculopathy M54.16 Active 648643558 Problem Irritable bowel syndrome with diarrhea K58.0 Active 469159428 Problem New daily persistent headache G44.52 Active 688317846 Problem Acute bilateral low back pain with right-sided sciatica M54.41 Active 427828199 Problem drawer in hand current 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 Z79.891 Active 251894511 Problem Bipolar 1 disorder F31.9 Active 491756993 Problem Hyperlipidemia, unspecified E78.5 Active 84471218 Problem Type 2 diabetes mellitus with complication E11.8 Active 257170199 Problem Post laminectomy syndrome M96.1 Active 55010080 Problem Eye exam normal Z01.00 Active 805269991 Problem Bipolar disorder, in partial remission, most recent episode manic F31.73 Active 18383877 Problem Extreme poverty Z59.5 Active 08911468 Problem Obesity, unspecified 278.00 Active 548672684 Problem 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 Active 29859237 Problem Hyperlipidemia 272.4 Active 26103388 Problem Non compliance with medical treatment Z91.19 Active 9933601 ALLERGIES No Information ENCOUNTERS Encounter Location Date Diagnosis [facility] [address], [place] [address] Nov, [facility] [address], [place] [address] Oct, [facility] [id number], [place] [address] Oct, [facility] [address], [place] [address] Oct, [facility] [id number] [place] [address] 56304- 9511 Aug, Type 2 diabetes mellitus with complication E11.8 [facility] [address] [place] [address] 40174- 5760 Aug, [facility] [id number] [place] [address] 14148- 5612 Aug, Bipolar 1 disorder F31.9 ; 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 and Extreme poverty Z59.5 [facility] [id number] [place] [address] 42240- 7039 Aug, 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 and Bipolar disorder, in partial remission, most recent episode manic F31.73 [facility] [id number] [place] [address] 03380- 3614 Aug, Bipolar 1 disorder F31.9 [facility] [address] [place] [address] 26727- 3731 Aug, [facility] [id number] [place] [address] 41062- 4781 Aug, [facility] [address] [place] [address] 11289- 1778 Aug, Bipolar 1 disorder F31.9 ; 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 and Extreme poverty Z59.5 [facility] [address] [place] [address] 10006- 3724 July, Type 2 diabetes mellitus with complication E11.8 [facility] [id number] [place] [address] 00480- 7905 July, Bipolar 1 disorder F31.9 ; 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 and Extreme poverty Z59.5 [facility] [address], [place] [address] Jun, Bipolar 1 disorder F31.9 ; 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 and Extreme poverty Z59.5 [facility] [address] [place] [address] 51499- 2393 Jun, Bipolar 1 disorder F31.9 ; 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 and Extreme poverty Z59.5 [facility] [address] [place] [address] 50972- 9613 Jun, Bipolar 1 disorder F31.9 ; 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 and Extreme poverty Z59.5 [facility] [id number] [place] [address] 18438- 3968 May, Urinary tract infection without hematuria, site unspecified N39.0 [facility] [id number] [place] [address] 97014- 9142 May, Bipolar 1 disorder F31.9 ; 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 and Extreme poverty Z59.5 [facility] [id number] [place] [address] 23554- 0186 Apr, Diabetes E11.9 and Breast cancer screening Z12.31 [facility] [id number] [place] [address] 64358- 0221 Apr, Bipolar 1 disorder F31.9 and 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 [facility] [id number] [place] [address] 21628- 4246 Mar, Bipolar 1 disorder F31.9 ; 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 and Extreme poverty Z59.5 [facility] [address] [place] [address] 93719- 7311 Mar, New daily persistent headache G44.52 ; Leg pain 729.5 and History of carpal tunnel release Z98.890 [facility] [facility] [address] [place] [address] 77772- 8777 Mar, Hyperlipidemia, unspecified E78.5 [facility] [id number] [place] [address] 10694- 6419 Mar, Bipolar 1 disorder F31.9 ; 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 and Extreme poverty Z59.5 [facility] [id number] [place] [address] 25402- 7961 Feb, Bipolar 1 disorder F31.9 ; 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 and Extreme poverty Z59.5 [facility] [id number] [place] [address] 43090- 6241 Feb, Diabetes E11.9 [facility] [address] 724802- 3139 Feb, Viral syndrome B34.9 [facility] [address] 55467- 1001 Jan, Other viral agents as the cause of diseases classified elsewhere B97.89 and Acute upper respiratory infection, unspecified J06.9 [facility] [id number] [place] [address] 38946- 4374 Jan, Bipolar 1 disorder F31.9 and 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 [facility] [id number] [place] [address] 61807- 0406 Jan, Bipolar 1 disorder F31.9 ; 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 and Extreme poverty Z59.5 [facility] [id number] [place] [address] 98489- 2168 Dec, Diabetes E11.9 [facility] [address] 57677- 4901 Dec, Diabetes E11.9 and Encounter for immunization Z23 [facility] [id number] [place] [address] 22958- 4040 Dec, Bipolar 1 disorder F31.9 ; 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 and Extreme poverty Z59.5 [facility] [id number] [place] [address] 38786- 6141 Dec, Back pain M54.9 [facility] [address] 69728- 6990 Nov, [facility] [address] [place] [address] 19789- 3916 Nov, Bipolar 1 disorder F31.9 ; 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 and Extreme poverty Z59.5 [facility] [address] [place] [address] 71250- 8102 Nov, Bipolar 1 disorder F31.9 ; 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 and Extreme poverty Z59.5 [facility] [id number] [place] [address] 52454- 7472 Oct, 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 and Bipolar 1 disorder F31.9 [facility] [id number] [place] [address] 57929- 3342 Oct, Bipolar 1 disorder F31.9 ; 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 and Extreme poverty Z59.5 [facility] [id number] [place] [address] 54364- 3460 Oct, Back pain M54.9 [facility] [id number] [place] [address] 25570- 3021 Oct, 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 and Type 2 diabetes mellitus with complication E11.8 [facility] [address] [place] [address] 70451- 4371 Sep, Bipolar 1 disorder F31.9 ; 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 and Extreme poverty Z59.5 [facility] [address] [place] [address] 52650- 9714 Sep, 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 and Bipolar 1 disorder F31.9 [facility] [id number] [place] [address] 07153- 3428 Sep, Bipolar 1 disorder F31.9 ; 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 and Extreme poverty Z59.5 [facility] [address] [place] [address] 22578- 5061 Aug, Diabetes E11.9 ; Hyperlipidemia, unspecified E78.5 and Lumbar radiculopathy M54.16 [facility] [address], [place] [address] Aug, Bipolar 1 disorder F31.9 ; 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 and Extreme poverty Z59.5 [facility] [address], [place] [address]- 7815 Aug, [facility] [id number] [place] [address] 66979- 9850 Aug, [facility] [id number] [place] [address] 43188- 8195 Aug, [facility] [id number] [place] [address] 36180- 6844 July, [facility] [id number] [place] [address] 19587- 6990 July, Acute bilateral low back pain with right-sided sciatica M54.41 [facility] [id number] [place] [address] 02454- 5848 July, Bipolar 1 disorder F31.9 ; 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 and Extreme poverty Z59.5 [facility] [address] [place] [address] 37764- 5594 July, Back pain M54.9 and Diabetes E11.9 [facility] [id number] [place] [address] 74352- 8722 Jun, Bipolar 1 disorder F31.9 ; 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 and Extreme poverty Z59.5 [facility] [address] [place] [address] 34120- 7179 Jun, Bipolar 1 disorder F31.9 ; 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 and Extreme poverty Z59.5 [facility] [address] [place] [address] 43195- 8739 May, Visit for pelvic exam Z01.419 ; Acute vaginitis N76.0 and Diabetes E11.9 [facility] [id number] [place] [address] 74130- 3434 May, Bipolar 1 disorder F31.9 ; 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 and Extreme poverty Z59.5 [facility] [id number] [place] [address] 56636- 3970 May, [facility] [address] 07560- 6069 May, [facility] [id number] [place] [address] 35677- 5002 May, Bipolar 1 disorder F31.9 ; 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 and Extreme poverty Z59.5 [facility] [id number] [place] [address] 08547- 0617 May, Hyperlipidemia, unspecified E78.[address] 11642- 4080 Apr, Breast cancer screening Z12.39 [facility] [facility] [address] 07945- 7593 Mar, [facility] [address] 87169- 3896 Mar, Bipolar disorder, current episode mixed, unspecified F31.60 [facility] [id number] [place] [address] 32717- 9899 Mar, Bipolar 1 disorder F31.9 ; 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 and Extreme poverty Z59.5 [facility] [id number] [place] [address] 60664- 5591 Feb, Acute nasopharyngitis J00 [facility] [id number] [place] [address] 30825- 9691 Feb, Dental examination Z01.20 [facility] [id number] [place] [address] 73438- 1213 21 Dec, 2016 Dental cavities K02.9 and Chronic periodontitis, unspecified K05.30 [facility] [id number] [place] [address] 81096- 5538 13 Feb, 2016 Low back pain M54.5 and Extreme poverty Z59.5 [facility] [id number] [place] [address] 42591- 6509 08 Feb, 2016 [place] [facility] [address] 97261- 5269 05 Feb, 2016 Routine gynecological examination V72.31 ; Breast cancer screening Z12.39 and Herpes simplex type [address] 27655- 8740 02 Feb, 2016 Diabetes E11.9 [facility] [id number] [place] [address] 15155- 5689 Feb, Encounter for dental examination and cleaning without abnormal findings Z01.20 [facility] [id number] [place] [address] 51832- 4423 22 Jan, 2016 Hyperlipidemia, unspecified E78.5 [place] [facility] [address] 40672- 3850 22 Jan, 2016 Bipolar 1 disorder F31.9 ; 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 and Extreme poverty Z59.5 [facility] [id number] [place] [address] 98993- 0184 18 Jan, 2016 Diabetes E11.9 [facility] [id number] [place] [address] 99925- 6199 17 Jan, 2016 Diabetes E11.9 [facility] [id number] [place] [address] 12303- 4670 14 Dec, 2015 Bipolar 1 disorder F31.9 ; 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 and Extreme poverty Z59.5 [facility] [id number] [place] [address] 05575- 1926 13 Dec, 2015 Bipolar disorder, current episode mixed, unspecified F31.60 and 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 [facility] [address] [place] [address] 89104- 6869 16 Nov, 2015 Bipolar 1 disorder F31.9 ; 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 ; Extreme poverty Z59.5 and Non compliance with medical treatment Z91.19 [facility] [address] [place] [address] 50626- 4168 Oct, [facility] [id number] [place] [address] 92564- 1208 Oct, Dental caries K02.9 [facility] [id number] [place] [address] 80427- 4215 Oct, Low back pain M54.5 and Other chronic pain G89.29 [facility] [id number] [place] [address] 47312- 9316 Oct, Bipolar 1 disorder F31.9 ; 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 ; Extreme poverty Z59.5 and Non compliance with medical treatment Z91.19 [facility] [address] [place] [address] 84866- 2949 Oct, [facility] [id number] [place] [address] 84045- 6612 Oct, [facility] [id number] [place] [address] 47883- 1021 Oct, Dental examination Z01.20 [facility] [id number] [place] [address] 93732- 5671 Oct, Bipolar 1 disorder F31.9 ; 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60 [facility] [address] [place] [address] 79103- 9330 Sep, Bipolar disorder, in partial remission, most recent episode manic F31.73 ; 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 ; Extreme poverty Z59.5 and Non compliance with medical treatment Z91.19 [facility] [address] [place] [address] 80503- 4877 Aug, Bipolar disorder, in partial remission, most recent episode manic F31.73 ; 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 ; Extreme poverty Z59.5 and Non compliance with medical treatment Z91.19 [facility] [address] [place] [address] 60627- 1024 Aug, Bipolar disorder, in partial remission, most recent episode manic F31.73 ; 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 ; Extreme poverty Z59.5 and Non compliance with medical treatment Z91.19 [facility] [address] [place] [address] 62758- 3613 Aug, [facility] [address] [place] [address] 77036- 9201 July, Bipolar disorder, in partial remission, most recent episode manic F31.73 ; 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 ; Extreme poverty Z59.5 and Non compliance with medical treatment Z91.19 [facility] [address] [place] [address] 87457- 1288 July, Bipolar disorder, current episode mixed, unspecified F31.60 [facility] [address] [place] [address] 14605- 8109 July, Bipolar disorder, in partial remission, most recent episode manic F31.73 ; 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 ; Extreme poverty Z59.5 and Non compliance with medical treatment Z91.19 [facility] [address] [place] [address] 79367- 6662 July, drawer in hand current 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 Z79.891 and Chronic pain G89.29 [facility] [address] [place] [address] 14192- 4182 Jun, skilled nursing current 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 Z79.891 and Bipolar 1 disorder F31.9 [facility] [id number] [place] [address] 22849- 9226 Jun, [facility] [id number] [place] [address] 77643- 8588 Jun, [facility] [id number] [place] [address] 44509- 2216 Jun, [facility] [id number] [place] [address] 30207- 7830 Jun, Bipolar disorder, in partial remission, most recent episode manic F31.73 ; 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 and Non compliance with medical treatment Z91.19 [facility] [address] [place] [address] 82042- 5533 May, Bipolar disorder, in partial remission, most recent episode manic F31.73 ; 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 and Non compliance with medical treatment Z91.19 [facility] [address] [place] [address] 62812- 7100 May, Bipolar disorder, in partial remission, most recent episode manic F31.73 [facility] [address] [place] [address] 07860- 5957 May, Diabetes E11.9 and Chronic pain G89.29 [facility] [address] [place] [address] 07165- 9302 14 May, 2015 [facility] [id number] [place] [address] 51860- 0977 May, Bipolar disorder, in partial remission, most recent episode manic F31.73 ; Non compliance with medical treatment Z91.19 and 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 [facility] [id number] [place] [address] 98022- 0461 May, Type 2 diabetes mellitus with complication E11.8 and Back pain M54.9 [facility] [id number] [place] [address] 95401- 3868 May, Bipolar disorder, in partial remission, most recent episode manic F31.73 and 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 [place] [address] 14139- 8787 Apr, [place] [address] 18569- 8242 Apr, [place] [address] 80276- 9337 Apr, [place] [facility] [address] 11118- 6256 Apr, Diabetes E11.9 ; Irritable bowel syndrome with diarrhea K58.0 and Lumbar radiculopathy M54.16 [facility] [id number] [place] [address] 58726- 6817 Apr, Breast screening Z12.39 [facility] [id number] [place] [address] 86675- 5929 Apr, Bipolar disorder, in partial remission, most recent episode manic F31.73 ; Non compliance with medical treatment Z91.19 and 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 [facility] [id number] [place] [address] 48140- 9717 Mar, Edema, unspecified type R60.9 and Type 2 diabetes mellitus with complication E11.8 [facility] [id number] [place] [address] 96743- 9035 Mar, Bipolar disorder, in partial remission, most recent episode manic F31.73 ; Non compliance with medical treatment Z91.19 ; 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 and Extreme poverty Z59.5 [facility] [id number] [place] [address]- 9807 14 Mar, 2015 Bipolar disorder, current episode mixed, unspecified F31.60 ; 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 ; Extreme poverty Z59.5 and Generalized anxiety disorder F41.1 [facility] [id number] [place] [address] 42623- 5515 12 Mar, 2015 Bipolar disorder, in partial remission, most recent episode manic F31.73 ; 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 and Extreme poverty Z59.5 [facility] [id number] [place] [address] 14164- 2611 Feb, Bipolar disorder, in partial remission, most recent episode manic F31.73 ; 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 and Extreme poverty Z59.5 [facility] [id number] [place] [address] 72045- 4869 Feb, Bipolar disorder, in partial remission, most recent episode manic F31.73 ; 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 and Extreme poverty Z59.5 [facility] [id number] [place] [address] 26533- 2950 Feb, [id number] [place] [address] 23380- 3785 Jan, Type 2 diabetes mellitus with complication E11.8 and Petechiae R23.3 [facility] [id number] [place] [address] 12610- 0009 Jan, Type 2 diabetes mellitus with complication E11.8 ; Edema, unspecified R60.9 ; Petechiae R23.3 and Diabetes E11.9 [facility] [id number] [place] [address] 63528- 7963 Jan, Bipolar disorder, in partial remission, most recent episode manic F31.73 ; 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 and Extreme poverty Z59.5 [facility] [id number] [place] [address] 00703- 0507 Jan, Bipolar disorder, in partial remission, most recent episode manic F31.73 ; 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 and Extreme poverty Z59.5 [facility] [id number] [place] [address] 64703- 0115 Dec, Bipolar disorder, in partial remission, most recent episode manic F31.73 [facility] [facility] [address] 48100- 1619 Dec, Edema, due to unspecified malnutrition type, unspecified edema R60.9 and Essential hypertension I10 [address] 20786- 3724 Dec, Bipolar disorder, in partial remission, most recent episode manic F31.73 [place] [address] 31844- 3762 Nov, Bipolar I disorder, most recent episode (or current) mixed, unspecified 296.60 [facility] [id number] [place] [address] 75164- 8085 Nov, Stress incontinence, female 625.6 ; Back pain 724.5 and Leg pain 729.5 [facility] [id number] [place] [address] 29837- 3746 Nov, Generalized anxiety disorder 300.02 and Bipolar II disorder 296.89 [place] [address] 20221- 6790 Nov, Bipolar I disorder, most recent episode (or current) mixed, unspecified 296.60 [place] [address] 54020- 4856 Oct, [facility] [id number] [place] [address] 54744- 4333 Oct, [place] [address] 92032- 0093 Oct, [facility] [address] [address]- 3599 Oct, Bipolar I disorder, most recent episode (or current) mixed, unspecified 296.60 [facility] [address] [address] Sep, Diabetes 250.00 [facility] [address] [place] [address] Sep, Bipolar I disorder, most recent episode (or current) mixed, unspecified 296.60 [facility] [id number] [address] Sep, [facility] [id number] [address] Sep, [facility] [address] [place] [address] Sep, Bipolar I disorder, most recent episode (or current) mixed, unspecified 296.60 [facility] [address] [address] Sep, Bipolar I disorder, most recent episode (or current) mixed, unspecified 296.60 [facility] [address] [address] [address] Sep, [facility] [id number], [place] [address] 49[address] Sep, Anxiety 300.00 ; Diabetes 250.00 and Hyperlipidemia 272.4 [facility] [address] [address] Aug, [facility] [address] [address] Aug, [facility] [address] [id number] [address] Aug, [facility] [address], [place] [address] Aug, Bipolar I disorder, most recent episode (or current) mixed, unspecified 296.60 [facility] [id number] [place] [address]- 5063 Aug, Generalized anxiety disorder 300.02 and Bipolar II disorder 296.89 [facility] [address] [address] July, Bipolar I disorder, most recent episode (or current) mixed, unspecified 296.60 [facility] [id number] [place] [address]- 2216 July, Cough 786.2 [facility] [id number] [place] [address] 796396- 0417 July, Bipolar I disorder, most recent episode (or current) mixed, unspecified 296.60 [facility] [id number] [place] [address]- 6341 Jun, Diabetes 250.00 [facility] [id number] [place] [address] 62449- 5250 14 Jun, 2014 [facility] [id number] [place] [address] 25347- 7513 Jun, [facility] [address], [place] [address]- 0155 May, [facility] [address], [place] [address]- 0258 May, [facility] [address], [place] [address]- 0237 May, [facility] [address] 6[address] May, [facility] [address] [address] May, [facility] [address] 65[address] May, [facility] [place] [facility] [address] [id number] [place] [address]- 4015 Apr, 2014 [facility] [place] [facility] [address] [id number] [place] [address]- 6096 Apr, 2014 [facility] [place] [facility] [address] [id number] [place] [address]- 8886 Apr, 2014 [facility] [place] [facility] [address] [id number] [place] [address] 2546 Apr, 2014 [facility] [place] [facility] [address] [id number] [place] [address]- 2544 Apr, 2014 [facility] [place] [facility] [address] [id number] [place] [address]- 4026 Apr, 2014 [facility] [place] [facility] [address] [id number] [place] [address]- 3269 Apr, [facility] [place] [facility] [address] [id number] [place] [address]- 8799 Apr, [facility] [place] [facility] [address] [id number] [place] [address]- 9702 Mar, [facility] [place] [facility] [address] [id number] [place] [address]- 4155 Mar, [facility] [place] [facility] [address] [id number] [place] [address]- 1047 Mar, [facility] [place] [facility] [address] [id number] [place] [address]- 3211 Mar, [facility] [place] [facility] [address] [id number] [place] [address] 2540 Mar, [facility] [place] [facility] [address] [id number] [place] [address]- 8380 Mar, [facility] [place] [facility] [address] [id number] [place] [address]- 1251 Mar, [facility] [place] [facility] [address] [id number] [place] [address]- 7164 13 Mar, 2014 [facility] [place] [facility] [address] [id number] [place] [address]- 9141 Feb, [facility] [place] [facility] [address] [id number] [place] [address]- 0245 Feb, [facility] [place] [facility] [address] [id number] [place] [address]- 7912 Feb, [facility] [place] [facility] [address] [id number] [place] [address]- 5800 Feb, [facility] [place] [facility] [address] [id number] [place] [address]- 5908 Feb, [facility] [place] [facility] [address] [id number] [place] [address]- 5518 Feb, [facility] [place] [facility] [address] [id number] [place] [address]- 9375 Feb, [facility] [place] [facility] [address] [id number] [place] [address]- 4585 Feb, [facility] [place] [facility] [address] [id number] [place] [address]- 0536 Feb, [facility] [place] [facility] [address] [id number] [place] [address]- 4584 Feb, [facility] [place] [facility] [address] [id number] [place] [address]- 2161 Jan, [facility] [place] [facility] [address] [id number] [place] [address]- 1951 Jan, [facility] [place] [facility] [address] [id number] [place] [address]- 9526 Jan, [facility] [place] [facility] [address] [id number] [place] [address]- 8034 Jan, [facility] [place] [facility] [address] [id number] [place] [address]- 3762 Jan, [facility] [place] [facility] [address] [id number] [place] [address]- 5916 Jan, [facility] [place] [facility] [address] [id number] [place] [address]- 3072 Jan, [facility] [place] [facility] [address] [id number] [place] [address]- 7564 Jan, [facility] [place] [facility] [address] [id number] [place] [address]- 7408 Jan, [facility] [place] [facility] [address] [id number] [place] [address]- 5876 Jan, [facility] [place] [facility] [address] [id number] [place] [address]- 3776 Jan, [facility] [place] [facility] [address] [id number] [place] [address]- 6222 Jan, [facility] [place] [facility] [address] [id number] [place] [address]- 4983 Jan, [facility] [place] [facility] [address] [id number] [place] [address]- 9903 Jan, [facility] [place] [facility] [address] [id number] [place] [address]- 2494 Jan, [facility] [place] [facility] [address] [id number] [place] [address]- 3451 Dec, [facility] [place] [facility] [address] [id number] [place] [address]- 9728 Dec, [facility] [place] [facility] [address] [id number] [place] [address]- 3873 Dec, [facility] [place] [facility] [address] [id number] [place] [address]- 3928 Dec, [facility] [place] [facility] [address] [id number] [place] [address]- 8208 Dec, [facility] [place] [facility] [address] [id number] [place] [address]- 1084 09 Dec, 2013 [facility] [place] [facility] [address] [id number] [place] [address]- 8329 07 Dec, 2013 [facility] [place] [facility] [address] [id number] [place] [address]- 0031 07 Dec, 2013 [facility] [place] [facility] [address] [id number] [place] [address]- 5454 25 Sep, 2013 [facility] [place] [facility] [address] [id number] [place] [address]- 0742 25 Sep, 2013 [facility] [place] [facility] [address] [id number] [place] [address]- 8865 10 Sep, 2013 [facility] [place] [facility] [address] [id number] [place] [address]- 4844 10 Sep, 2013 [facility] [place] [facility] [address] [id number] [place] [address]- 3684 08 Sep, 2013 [facility] [place] [facility] [address] [id number] [place] [address]- 6677 08 Sep, 2013 [facility] [place] [facility] [address] [id number] [place] [address]- 6148 08 Sep, 2013 [facility] [place] [facility] [address] [id number] [place] [address]- 1529 08 Sep, 2013 [facility] [place] [facility] [address] [id number], [place] [address]- 9312 08 Sep, 2013 [facility] [place] [facility] [address] [id number], [place] [address]- 4108 08 Sep, 2013 [facility] [place] [facility] [address] [id number] [place] [address]- 2545 04 Sep, 2013 [facility] [place] [facility] [address] [id number] [place] [address]- 9552 04 Sep, 2013 [facility] [place] [facility] [address] [id number] [place] [address]- 9713 03 Sep, 2013 [facility] [place] [facility] [address] [id number] [place] [address]- 1675 Nov, [facility] [place] [facility] [address] [id number] [place] [address]- 0217 Nov, [facility] [place] [facility] [address] [id number] [place] [address]- 2791 Oct, [facility] [place] [facility] [address] [id number] [place] [address]- 1957 Oct, [facility] [place] [facility] [address] [id number] [place] [address]- 7523 Oct, [facility] [place] [facility] [address] [id number] [place] [address]- 3995 Oct, [facility] [place] [facility] [address] [id number] [place] [address]- 8430 Oct, [facility] [place] [facility] [address] [id number] [place] [address]- 8200 Oct, [facility] [place] [facility] [address] [id number] [place] [address]- 4097 Oct, [facility] [place] [facility] [address] [id number] [place] [address]- 7354 Oct, [facility] [place] [facility] [address] [id number] [place] [address]- 6689 Oct, [facility] [place] [facility] [address] [id number] [place] [address]- 4819 Oct, [facility] [place] [facility] [address] [id number] [place] [address]- 0070 Oct, [facility] [place] [facility] [address] [id number] [place] [address]- 5391 Oct, [facility] [place] [facility] [address] [id number] [place] [address]- 3061 Oct, [facility] [place] [facility] [address] [id number] [place] [address]- 3584 Oct, [facility] [place] [facility] [address] [id number] [place] [address]- 4145 Sep, [facility] [place] [facility] [address] [id number] [place] [address]- 8407 Sep, [facility] [place] [facility] [address] [id number] [place] [address]- 5860 Sep, [facility] [place] [facility] [address] [id number] [place] [address]- 9743 Sep, [facility] [place] [facility] [address] [id number] [place] [address]- 3323 Sep, [facility] [place] [facility] [address] [id number] [place] [address]- 8536 Sep, [facility] [place] [facility] [address] [id number] [place] [address]- 4027 Sep, [facility] [place] [facility] [address] [id number] [place] [address]- 1409 Sep, [facility] [place] [facility] [address] [id number] [place] [address]- 0254 Aug, [facility] [place] [facility] [address] [id number] [place] [address]- 6401 Aug, [facility] [place] [facility] [address] [id number] [place] [address]- 9614 Aug, [facility] [place] [facility] [address] [id number] [place] [address]- 1315 Aug, [facility] [place] [facility] [address] [id number] [place] [address]- 6303 Aug, [facility] [place] [facility] [address] [id number] [place] [address]- 8593 Aug, [facility] [place] [facility] [address] [id number] [place] [address]- 6065 Aug, [facility] [place] [facility] [address] [id number] [place] [address]- 2979 Aug, [facility] [address] [id number] [place] [address]- 0437 July, [facility] [place] [facility] [address] [id number] [place] [address]- 0546 July, [facility] [place] [facility] [address] [id number] [place] [address]- 0004 July, [facility] [place] [facility] [address] [id number] [place] [address]- 3962 July, [facility] [place] [facility] [address] [id number] [place] [address]- 5483 July, [facility] [place] [facility] [address] [id number] [place] [address]- 1912 July, [facility] [place] [facility] [address] [id number] [place] [address]- 7368 July, [facility] [place] [facility] [address] [id number] [place] [address]- 9827 July, [facility] [place] [facility] [address] [id number] [place] [address]- 0289 Jun, [facility] [place] [facility] [address] [id number] [place] [address]- 5217 Jun, [facility] [place] [facility] [address] [id number] [place] [address]- 8000 Jun, [facility] [place] [facility] [address] [id number] [place] [address]- 9895 Jun, [facility] [place] [facility] [address] [id number] [place] [address]- 7731 Jun, [facility] [place] [facility] [address] [id number] [place] [address]- 5175 Jun, [facility] [place] [facility] [address] [id number] [place] [address]- 2047 Jun, [facility] [place] [facility] [address] [id number] [place] [address]- 1053 15 Jun, 2013 [facility] [place] [facility] [address] [id number] [place] [address]- 8199 Jun, [facility] [place] [facility] [address] [id number] [place] [address]- 4066 Jun, [facility] [place] [facility] [address] [id number] [place] [address]- 8235 Jun, [facility] [place] [facility] [address] [id number] [place] [address]- 1259 Jun, [facility] [place] [facility] [address] [id number] [place] [address]- 4827 May, [facility] [place] [facility] [address] [id number] [place] [address]- 0859 May, [facility] [place] [facility] [address] [id number] [place] [address]- 0604 May, [facility] [place] [facility] [address] [id number] [place] [address]- 1697 May, [facility] [place] [facility] [address] [id number] [place] [address]- 8066 May, [facility] [place] [facility] [address] [id number] [place] [address]- 3093 May, [facility] [place] [facility] [address] [id number] [place] [address]- 1939 May, [facility] [place] [facility] [address] [id number] [place] [address]- 1178 May, [facility] [place] [facility] [address] [id number] [place] [address]- 5809 May, [facility] [place] [facility] [address] [id number] [place] [address]- 7694 May, [facility] [place] [facility] [address] [id number] [place] [address]- 7535 May, [facility] [place] [facility] [address] [id number] [place] [address]- 7795 May, [facility] [place] [facility] [address] [id number] [place] [address]- 4103 May, [facility] [place] [facility] [address] [id number] [place] [address]- 5695 May, [facility] [place] [facility] [address] [id number] [place] [address]- 2988 Apr, [facility] [place] [facility] [address] [id number] [place] [address]- 3345 Apr, [facility] [place] [facility] [address] [id number] [place] [address]- 4611 Apr, [facility] [place] [facility] [address] [id number] [place] [address]- 7888 Apr, [facility] [place] [facility] [address] [id number] [place] [address]- 1606 Apr, [facility] [place] [facility] [address] [id number] [place] [address]- 6076 Apr, [facility] [place] [facility] [address] [id number] [place] [address]- 4377 Mar, [facility] [place] [facility] [address] [id number] [place] [address]- 0629 Mar, [facility] [place] [facility] [address] [id number] [place] [address]- 2870 Mar, [facility] [place] [facility] [address] [id number] [place] [address]- 1426 Mar, [facility] [place] [facility] [address] [id number] [place] [address]- 3445 Mar, [facility] [place] [facility] [address] [id number] [place] [address]- 5152 Mar, [facility] [place] [facility] [address] [id number] [place] [address]- 1552 Mar, [facility] [address] [id number] [place] [address]- 7557 Mar, [facility] [address] [id number] [place] [address]- 8847 Mar, [facility] [address] [id number] [place] [address]- 7857 Mar, [facility] [address] [id number] [place] [address]- 3437 Mar, [facility] [address] [id number] [place] [address]- 5777 Mar, [facility] [address] [id number] [place] [address]- 4173 Mar, [facility] [address] [id number] [place] [address]- 5521 Mar, [facility] [address] [id number] [place] [address]- 4798 Feb, [facility] [address] [id number] [place] [address]- 7200 Feb, [facility] [address] [id number] [place] [address]- 0233 Feb, [facility] [address] [id number] [place] [address]- 0839 Feb, [facility] [address] [id number] [place] [address]- 254 Feb, [facility] [place] [facility] [address] [id number] [place] [address]- 0223 Feb, [facility] [address] [id number] [place] [address]- 3006 Feb, [facility] [address] [id number] [place] [address]- 7631 Feb, [facility] [place] [facility] [address] [id number] [place] [address]- 7964 Feb, 2012 [facility] [place] [facility] [address] [id number] [place] 0834 Feb, 2012 [facility] [place] [facility] [address] [id number] [place] 8954 Feb, 2012 [facility] [place] [facility] [address] [id number] [place] [address]- 5658 Feb, 2012 [facility] [place] [facility] [address] [id number] [place] [address]- 2170 Feb, 2012 [facility] [place] [facility] [address] [id number] [place] [address]- 6056 Feb, 2012 [facility] [place] [facility] [address] [id number] [place] [address]- 7250 Feb, [facility] [place] [facility] [address] [id number], [place] [address]- 3919 Feb, [facility] [place] [facility] [address] [id number], [place] [address]- 4856 24 Dec, 2012 [facility] [place] [facility] [address] [id number], [place] [address]- 4607 24 Dec, 2012 [facility] [place] [facility] [address] [id number], [place] [address] 16 Dec, 2012 [facility] [place] [facility] [address] [id number], [place] [address] 16 Dec, 2012 [facility] [place] [facility] [address] [id number], [place] [address] 58[address] 16 Dec, 2012 [facility] [place] [facility] [address] [id number] [address] 16 Dec, 2012 [facility] [place] [facility] [address] [facility] [id number], [place] [address] 14 Dec, 2012 [facility] [place] [facility] [address] [id number], [place] [address] 12[address] 14 Dec, 2012 [facility] [place] [facility] [address] [id number] [place] [address] 4428 10 Dec, 2012 [facility] [place] [facility] [address] [id number] [place] [address] 2211 10 Dec, 2012 [facility] [place] [facility] [address] [facility] [id number] [place] [address] 9298 10 Dec, 2012 [facility] [place] [facility] [address] [id number] [place] [address] 6081 10 Dec, 2012 [facility] [place] [facility] [address] [id number] [place] [address]- 4[address] 03 Dec, 2012 [facility] [place] [facility] [address] [id number] [place] [address] 6360 25 Nov, 2012 [facility] [place] [facility] [address] [id number], [place] [address] 20 Nov, 2012 [facility] [place] [facility] [address] [id number] [place] [address]- 5655 18 Nov, 2012 [facility] [place] [facility] [address] [id number] [place] [address]32 16 Nov, 2012 [facility] [place] [facility] [address] [facility] [id number] [place] [address]- [address]507 12 Nov, 2012 [facility] [place] [facility] [address] [id number] [place] [address] 2192 11 Nov, 2012 [facility] [place] [facility] [address] [id number], [place] [address]- 1001 05 Nov, 2012 [facility] [place] [facility] [address] [id number], [place] [address] 4431 15 Oct, 2012 [facility] [place] [facility] [address] [facility] [id number], [place] [address] 2741 03 Oct, 2012 [facility] [place] [facility] [address] [facility] [id number], [place] [address] 1368 24 Sep, 2012 [facility] [place] [facility] [address] [id number] [place] [address]- 7235 23 Sep, 2012 [facility] [place] [facility] [address] [id number] [place] [address] Sep, [facility] [place] [facility] [address] [id number] [place] [address] 2545 17 Sep, 2012 [facility] [place] [facility] [address] [id number] [place] [address]- 4463 15 Sep, 2012 [facility] [place] [facility] [address] [id number] [place] [address]- 8870 Sep, [facility] [place] [facility] [address] [id number] [place] [address]- 1173 Sep, [facility] [place] [facility] [address] [id number] [place] [address]- 1284 Aug, [facility] [place] [facility] [address] [id number] [place] [address]- 1163 Aug, [facility] [place] [facility] [address] [id number] [place] [address]- 7551 16 Aug, 2012 [facility] [place] [facility] [address] [id number] [place] [address]- 8006 Aug, [facility] [place] [facility] [address] [id number] [place] [address]- [address]321 Aug, [facility] [place] [facility] [address] [id number] [place] [address]- 8074 Aug, [facility] [place] [facility] [address] [id number] [place] [address]- 9639 Aug, [facility] [place] [facility] [address] [id number] [place] [address]- 5760 Aug, [facility] [place] [facility] [address] [id number] [place] [address]- 6186 July, [facility] [place] [facility] [address] [id number] [place] [address]- 0861 July, [facility] [address] [id number] [place] [address]- 8190 July, [facility] [address] [id number] [place] [id number] July, [facility] [address] [id number] [place] [address]- 3556 July, [facility] [address] [id number] [place] [address]- 3889 Jun, [facility] [address] [id number] [place] [address]- 9074 May, [facility] [address] [id number] [place] [address]- 0726 May, [facility] [address] [id number] [place] [address]- 9676 May, [facility] [address] [id number] [place] [address]- 8683 Apr, [facility] [address] [id number] [place] [address]- [address]192 Apr, [facility] [address] [id number] [place] [address]- 5526 Apr, [facility] [address] [id number] [place] [address]- 5092 Mar, [facility] [address] [id number], [place] [address] Mar, [facility] [address] [id number] [place] [address]- 4171 Mar, [facility] [address] [id number] [place] [address]- 0326 Mar, [facility] [address] [id number] [place] [address]- 9477 Mar, [facility] [address] [id number] [place] [address]- 2951 Mar, [facility] [address] [id number] [place] [address] 1954 Mar, [facility] [place] [facility] [address] [id number] [place] [address] Feb, [facility] [address] [id number] [place] [address]- 7239 Feb, [facility] [place] [facility] [address] [id number] [place] [address]- 3722 Feb, [facility] [address] [id number] [place] [address]- 8540 Feb, [facility] [place] [facility] [address] [id number] [place] [address]- 0651 Feb, [facility] [address] [id number] [place] [address]- 6014 Feb, [facility] [address] [id number] [place] [address]- 5936 Feb, [facility] [place] [facility] [address] [id number] [place] [address]- 1670 Feb, [facility] [address] [id number] [place] [address]- 5648 Jan, [facility] [place] [facility] [address] [id number] [place] [address]- 8631 Jan, [facility] [place] [facility] [address] [id number] [place] [address]- 5857 Jan, [facility] [place] [facility] [address] [id number] [place] [address]- 0919 Jan, [facility] [place] [facility] [address] [id number] [place] [address]- 2446 Jan, [facility] [place] [facility] [address] [id number] [place] [address]- 1058 Jan, [facility] [place] [facility] [address] [id number] [place] [address]- 6447 Jan, [facility] [place] [facility] [address] [id number] [place] [address]- 5660 Jan, [facility] [place] [facility] [address] [id number] [place] [address]- 0887 Jan, [facility] [place] [facility] [address] [id number] [place] [address]- 0900 Jan, [facility] [place] [facility] [address] [id number] [place] [address]- 7458 Jan, [facility] [facility] [address] [id number] [place] [address] Jan, [facility] [place] [facility] [address] [id number] [place] [address] Jan, [facility] [place] [facility] [address] [id number] [place] [address] Jan, [facility] [place] [facility] [address] [id number] [place] [address] Jan, [facility] [place] [facility] [address] [id number] [place] [address] Jan, [facility] [place] [facility] [address] [facility] [id number] [place] [address] Dec, [facility] [place] [facility] [address] [id number], [place] [address] Dec, [facility] [place] [facility] [address] [id number] [place] [address] Dec, [facility] [place] [facility] [address] [id number] [place] [address] Dec, [facility] [place] [facility] [address] [id number] [place] [address] Dec, [facility] [place] [facility] [address] [id number], [place] [address] Dec, [facility] [place] [facility] [address] [id number] [place] [address] Dec, [facility] [place] [facility] [address] [id number] [place] [address] Dec, [facility] [place] [facility] [address] [id number] [place] [address] Dec, [facility] [place] [facility] [address] [id number] [place] [address] 05 Dec, 2011 [facility] [place] [facility] [address] [id number] [place] [address] 18 Nov, 2011 [facility] [place] [facility] [address] [id number] [place] [address]100 13 Nov, 2011 [facility] [place] [facility] [address] [id number] [place] [address] 24 Oct, 2011 [facility] [place] [facility] [address] [id number] [place] [address] Oct, [facility] [place] [facility] [address] [id number] [place] [address] Oct, [facility] [place] [facility] [address] [id number] [place] [address]01 16 Oct, 2011 [facility] [place] [facility] [address] [id number] [place] [address]168 Oct, [facility] [place] [facility] [address] [id number] [place] [address] 7768 Oct, [facility] [place] [facility] [address] [id number] [place] [address]- [address]36 Oct, [facility] [place] [facility] [address] [id number] [place] [address] Sep, [facility] [place] [facility] [address] [id number] [place] [address] Aug, [facility] [place] [facility] [address] [id number] [place] [address] 18 Aug, 2011 [facility] [address] [id number] [place] [address] Aug, [facility] [facility] [address] [id number] [place] [address] Aug, [facility] [address] [id number] [place] [address] Aug, [facility] [place] [address] [id number] [place] [address] July, [facility] [address] [id number] [place] [address] 289[address] July, [facility] [address] [id number] [place] [address] July, [facility] [address] [id number] [place] [address] 9465 Jun, [facility] [address] [id number] [place] [address] Jun, [facility] [address] [id number] [place] [address]169 Jun, [facility] [address] [id number] [place] [address] Jun, [facility] [address] [id number] [place] [address] May, [facility] [address] [id number] [place] [address] 30 May, 2011 [facility] [address] [id number] [place] [address] 29 May, 2011 [facility] [address] [id number] [place] [address]- 65[address] May, [facility] [address] [id number] [place] [address] May, [facility] [place] [facility] [address] [id number] [place] [address]- 8544 22 May, 2011 [facility] [address] [id number] [place] [address]- [address] May, [facility] [address] [id number] [place] [address]- 4126 19 May, 2011 [facility] [address] [id number] [place] [address]- [address]160 08 May, 2011 [facility] [address] [id number] [place] [address]- 7160 05 May, 2011 [facility] [address] [id number] [place] [address]- 1856 May, [facility] [address] [id number] [place] [address]- 0400 May, [facility] [facility] [address] [id number] [place] [address]163 Mar, [facility] [address] [id number] [place] [address]- 4038 Mar, [facility] [address] [id number] [place] [address]- [address]648 28 Feb, 2011 [facility] [address] [id number] [place] [address] 285[address] Feb, [facility] [address] [id number] [place] [address]- 2850 20 Feb, 2011 [facility] [address] [id number] [place] [address]- 4818 15 Feb, 2011 [facility] [address] [id number] [place] [address]- 7526 13 Feb, 2011 [facility] [address] [id number] [place] [address]- 9094 13 Feb, 2011 [facility] [address] [id number] [place] [address]- 7585 13 Feb, 2011 [facility] [address] [id number] [place] [address]- 1826 Jan, [facility] [address] [id number] [place] [address]- 5733 Jan, [facility] [address] [id number] [place] [address]- 5133 Jan, [facility] [address] [id number] [place] [address]- 0644 Jan, [facility] [address] [id number] [place] [address]- 1706 Jan, [facility] [address] [id number] [place] [address]- 0593 Jan, [facility] [address] [id number] [place] [address]- 7043 Dec, [facility] [address] [id number] [place] [address]- 9318 Dec, [facility] [address] [id number] [place] [address]- 1190 Dec, [facility] [address] [id number] [place] [address]- 6603 July, [facility] [address] [id number] [place] [address]- 6000 July, [facility] [address] [id number] [place] [address]- 8191 08 Feb, 2010 [facility] [address] [id number] [place] [address]- 2319 Jan, [facility] [address] [id number] [place] [address]- 7917 Dec, [facility] [address] [id number], [place] [address]- [address]754 Dec, [facility] [address] [id number] [place] [address]- 1330 15 Sep, 2009 [facility] [address] [id number] [place] [address]- 3653 Aug, [facility] [address] [id number] [place] [address]- 9641 Jun, [facility] [address] [id number] [place] [address]- 9808 Jun, [facility] [address] [id number] [place] [address]- 5534 Jan, [facility] [address] [id number] [place] [address]- 9397 Jan, [facility] [address] [facility] [id number] [place] [address]- 5131 Jan, [facility] [address] [id number] [place] [address]- 6527 Jan, [facility] [address] [id number] [place] [address]- 6150 Dec, [facility] [address] [id number] [place] [address]- 9438 Dec, [facility] [address] [facility] [id number] [place] [address]- 5808 Dec, [facility] [address] [id number], [place] [address]- [address] Nov, [facility] [address] [id number] [place] [address]- 8186 July, [facility] [address] [id number] [place] [address]- 3018 May, [facility] [address] [id number], [place] [address]- 6928 Apr, [facility] [address] [id number], [place] [address]- [address] Feb, [facility] [address] [facility] [id number] [place] [id number] [address] Dec, IMMUNIZATIONS No Known Immunizations SOCIAL HISTORY Never Assessed REASON FOR VISIT f/u PLAN OF CARE Activity Details Follow Up 2 Weeks Reason: VITAL SIGNS MEDICATIONS Unknown Medications RESULTS No Results PROCEDURES Procedure Date Ordered Result Body Site Psychotherapy, patient &/family, 30 minutes, established patient June 02, 2017 INSTRUCTIONS MEDICATIONS ADMINISTERED No Known [...]
--- OUTSIDE RECORDS SUMMARY | 2018-06-14 14:51 | XMS REPORT ---
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 Active 568510405 Problem Bipolar 1 disorder F31.9 Active 577893757 Problem Hyperlipidemia, unspecified E78.5 Active 10749694 Problem Type 2 diabetes mellitus with complication E11.8 Active 087211864 Problem Post laminectomy syndrome M96.1 Active 12095205 Problem Eye exam normal Z01.00 Active 147223356 Problem Bipolar disorder, in partial remission, most recent episode manic F31.73 Active 47355557 Problem Extreme poverty Z59.5 Active 04759647 Problem Obesity, unspecified 278.00 Active 275907534 Problem 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 Active 39824755 Problem Hyperlipidemia 272.4 Active 05963411 Problem Non compliance with medical treatment Z91.19 Active 1532775 ALLERGIES No Information ENCOUNTERS Encounter Location Date Diagnosis [facility] [address], [place] [address] Nov, [facility] [address], [place] [address] Oct, [facility] [id number], [place] [address] Oct, [facility] [address], [place] [address] Oct, [facility] [id number] [place] [address] 73214- 1584 Aug, [facility] [id number] [place] [address] 52713- 5967 Aug, Bipolar 1 disorder F31.9 ; 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 and Extreme poverty Z59.5 [place] [id number] [place] [address] 89003- 5592 Aug, 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 and Bipolar disorder, in partial remission, most recent episode manic F31.73 [place] [id number] [place] [address] 85190- 8368 Aug, Bipolar 1 disorder F31.9 [place] [id number] [place] [address] 24176- 5604 Aug, [facility] [id number] [place] [address] 54292- 3419 Aug, [place] [id number] [place] [address] 40471- 3736 Aug, Bipolar 1 disorder F31.9 ; 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 and Extreme poverty Z59.5 [place] [id number] [place] [address] 89202- 1050 July, Type 2 diabetes mellitus with complication E11.8 [place] [address] [place] [address] 22479- 3067 July, Bipolar 1 disorder F31.9 ; 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 and Extreme poverty Z59.5 [place] [address] [place] [address] 73458- 9112 Jun, Bipolar 1 disorder F31.9 ; 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 and Extreme poverty Z59.5 [place] [address] [place] [address] 95729- 8379 Jun, Bipolar 1 disorder F31.9 ; 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 and Extreme poverty Z59.5 [place] [id number] [place] [address] 69846- 3695 Jun, Bipolar 1 disorder F31.9 ; 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 and Extreme poverty Z59.5 [place] [id number] [place] [address] 98965- 1828 May, Urinary tract infection without hematuria, site unspecified N39.0 [place] [id number] [place] [address] 09391- 8117 May, Bipolar 1 disorder F31.9 ; 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 and Extreme poverty Z59.5 [place] [id number] [place] [address] 18983- 8696 28 Apr, 2017 Diabetes E11.9 and Breast cancer screening Z12.31 [place] [id number] [place] [address] 80143- 9782 20 Apr, 2017 Bipolar 1 disorder F31.9 and 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 [place] [id number] [place] [address] 29524- 8087 Mar, Bipolar 1 disorder F31.9 ; 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 and Extreme poverty Z59.5 [place] [id number] [place] [address] 37579- 2970 Mar, New daily persistent headache G44.52 ; Leg pain 729.5 and History of carpal tunnel release Z98.890 [place] [id number] [place] [address] 97183- 6241 Mar, Hyperlipidemia, unspecified E78.5 [place] [id number] [place] [address] 43318- 7918 Mar, Bipolar 1 disorder F31.9 ; 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 and Extreme poverty Z59.5 [place] [id number] [place] [address] 49575- 1032 Feb, Bipolar 1 disorder F31.9 ; 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 and Extreme poverty Z59.5 [place] [id number] [place] [address] 08158- 4696 Feb, Diabetes E11.9 [place] [id number] [place] [address] 54016- 3682 Feb, Viral syndrome B34.9 [place] [address] 42730- 3354 Jan, Other viral agents as the cause of diseases classified elsewhere B97.89 and Acute upper respiratory infection, unspecified J06.9 [place] [id number] [place] [address] 10314- 1311 Jan, Bipolar 1 disorder F31.9 and 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 [place] [address] 48202- 5829 Jan, Bipolar 1 disorder F31.9 ; 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 and Extreme poverty Z59.5 [place] [address] 45328- 0882 Dec, Diabetes E11.9 [place] [id number] [place] [address] 45949- 7210 Dec, Diabetes E11.9 and Encounter for immunization Z23 [place] [id number] [place] [address] 83094- 3652 Dec, Bipolar 1 disorder F31.9 ; 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 and Extreme poverty Z59.5 [place] [id number] [place] [address] 82790- 2928 Dec, Back pain M54.9 [place] [id number] [place] [address] 99184- 1657 Nov, [place] [address] 75223- 2263 Nov, Bipolar 1 disorder F31.9 ; 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 and Extreme poverty Z59.5 [place] [address] [place] [address] 17340- 2850 Nov, Bipolar 1 disorder F31.9 ; 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 and Extreme poverty Z59.5 [place] [id number] [place] [address] 74636- 9493 Oct, 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 and Bipolar 1 disorder F31.9 [place] [id number] [place] [address] 70592- 4876 Oct, Back pain M54.9 [place] [id number] [place] [address] 75937- 4277 Oct, Bipolar 1 disorder F31.9 ; 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 and Extreme poverty Z59.5 [place] [id number] [place] [address] 00955- 3081 Oct, 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5 [place] [id number] [place] [address] 96316- 2868 Aug, Diabetes E11.9 ; Hyperlipidemia, unspecified E78.5 and Lumbar radiculopathy M54.16 [place] [id number] [place] [address] 30134- 9949 Aug, Bipolar 1 disorder F31.9 ; 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 and Extreme poverty Z59.5 [facility] [address] [place] [address] 77775- 8966 Aug, [facility] [id number] [place] [address] 63849- 3894 Aug, [facility] [id number] [place] [address] 53936- 0664 Aug, [facility] [id number] [place] [address] 67614- 7923 July, [place] [id number] [place] [address] 66744- 2530 July, Acute bilateral low back pain with right-sided sciatica M54.41 [place] [id number] [place] [address] 56841- 8222 July, Bipolar 1 disorder F31.9 ; 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 and Extreme poverty Z59.5 [place] [address] [place] [address] 31408- 0271 July, Back pain M54.9 and Diabetes E11.9 [place] [address] [place] [address] 30756- 3632 Jun, Bipolar 1 disorder F31.9 ; 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 and Extreme poverty Z59.5 [place] [address] [place] [address] 27244- 6267 Jun, Bipolar 1 disorder F31.9 ; 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 and Extreme poverty Z59.5 [place] [id number] [place] [address] 98805- 5094 May, Visit for pelvic exam Z01.419 ; Acute vaginitis N76.0 and Diabetes E11.9 [place] [address] [place] [address] 12097- 6127 16 Mar, 2017 Bipolar 1 disorder F31.9 ; 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 and Extreme poverty Z59.5 [place] [id number] [place] [address] 79243- 7691 08 May, 2016 [place] [id number] [place] [address] May, [place] [id number] [place] [address] 96815- 4606 May, Bipolar 1 disorder F31.9 ; 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 and Extreme poverty Z59.5 [place] [id number] [place] [address] 84455- 1005 May, Hyperlipidemia, unspecified E78.5 [place] [id number] [place] [address] 78966- 8587 13 Apr, 2016 Breast cancer screening Z12.39 [place] [id number] [place] [address] 94662- 1312 Mar, [place] [id number] [place] [address] 26908- 8021 Mar, Bipolar disorder, current episode mixed, unspecified F31.60 [place] [id number] [place] [address] 71364- 7913 Mar, Bipolar 1 disorder F31.9 ; 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 and Extreme poverty Z59.5 [place] [id number] [place] [address] 54150- 7108 Feb, Acute nasopharyngitis J00 [place] [id number] [place] [address] 68456- 4144 Feb, Dental examination Z01.20 [place] [id number] [place] [address] 90093- 0433 21 Feb, 2016 Dental cavities K02.9 and Chronic periodontitis, unspecified K05.30 [place] [id number] [place] [address] 00313- 0003 Feb, Low back pain M54.5 and Extreme poverty Z59.5 [place] [id number] [place] [address]- [address]262 Feb, [place] [address]8527- 7927 05 Feb, 2016 Routine gynecological examination V72.31 ; Breast cancer screening Z12.39 and Herpes simplex type 1 infection B00.9 [place] [address]8525- 9690 Feb, Diabetes E11.9 [place] [address]- 9186 Feb, Encounter for dental examination and cleaning without abnormal findings Z01.20 [place] [address] 52620- 6286 Jan, Hyperlipidemia, unspecified E78.5 [place] [address] 47945- 8282 Jan, Bipolar 1 disorder F31.9 ; 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 and Extreme poverty Z59.5 [place] [id number] [place] [address] 23686- 1497 18 Jan, 2016 Diabetes E11.9 [place] [address] 73987- 0344 17 Jan, 2016 Diabetes E11.9 [place] [address] [address]- 6885 14 Dec, 2015 Bipolar 1 disorder F31.9 ; 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 and Extreme poverty Z59.5 [place] [address] 68912- 4148 13 Dec, 2015 Bipolar disorder, current episode mixed, unspecified F31.60 and 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 [place] [address] [address]- 8677 16 Nov, 2015 Bipolar 1 disorder F31.9 ; 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 ; Extreme poverty Z59.5 and Non compliance with medical treatment Z91.19 [facility] [address] [place] [address] 18426- 9564 Oct, [facility] [id number] [place] [address] 28025- 2860 Oct, Dental caries K02.9 [facility] [id number] [place] [address] 08871- 6146 Oct, Low back pain M54.5 and Other chronic pain G89.29 [place] [id number] [place] [address] 55226- 9540 Oct, Bipolar 1 disorder F31.9 ; 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 ; Extreme poverty Z59.5 and Non compliance with medical treatment Z91.19 [place] [id number] [place] [address] 83056- 3162 Oct, [facility] [id number] [place] [address] 02937- 3125 Oct, [place] [id number] [place] [address] 49961- 4319 Oct, Dental examination Z01.20 [place] [id number] [place] [address] 88340- 2381 Oct, Bipolar 1 disorder F31.9 ; 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 ; Extreme poverty Z59.5 and Non compliance with medical treatment Z91.19 [place] [id number] [place] [address] 08660- 2432 Oct, [place] [id number] [place] [address] 61165- 6938 Sep, Type 2 diabetes mellitus with complication E11.8 [place] [id number] [place] [address] 94181- 8635 Sep, Bipolar disorder, current episode mixed, unspecified F31.60 [place] [id number] [address]- 1508 Sep, Bipolar disorder, current episode mixed, unspecified F31.60 [place] [address] [place] [address] 69795- 6611 Sep, Bipolar disorder, in partial remission, most recent episode manic F31.73 ; 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 ; Extreme poverty Z59.5 and Non compliance with medical treatment Z91.19 [place] [address] [place] [address] 31359- 7807 Aug, Bipolar disorder, in partial remission, most recent episode manic F31.73 ; 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 ; Extreme poverty Z59.5 and Non compliance with medical treatment Z91.19 [place] [address] [place] [address] 69802- 3884 Aug, Bipolar disorder, in partial remission, most recent episode manic F31.73 ; 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 ; Extreme poverty Z59.5 and Non compliance with medical treatment Z91.19 [place] [address] [place] [address] 29534- 7456 Aug, [place] [address] [place] [address] 11432- 3903 July, Bipolar disorder, in partial remission, most recent episode manic F31.73 ; 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 ; Extreme poverty Z59.5 and Non compliance with medical treatment Z91.19 [place] [address] [place] [address] 87476- 9011 July, Bipolar disorder, current episode mixed, unspecified F31.60 [place] [address] [place] [address] 64747- 4397 July, Bipolar disorder, in partial remission, most recent episode manic F31.73 ; 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 ; Extreme poverty Z59.5 and Non compliance with medical treatment Z91.19 [place] [address] [place] [address] 30939- 6123 July, 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 and Chronic pain G89.29 [place] [address] [place] [address] 08774- 9365 Jun, 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 Z79.891 and Bipolar 1 disorder F31.9 [place] [address] [place] [address] 69435- 0564 Jun, [facility] [id number] [place] [address] 02339- 2417 Jun, [place] [id number] [place] [address] 06278- 3183 Jun, [place] [id number] [place] [address] 60044- 6185 Jun, Bipolar disorder, in partial remission, most recent episode manic F31.73 ; 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 and Non compliance with medical treatment Z91.19 [place] [address] [place] [address] 24826- 8007 May, Bipolar disorder, in partial remission, most recent episode manic F31.73 ; 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 and Non compliance with medical treatment Z91.19 [place] [address] [place] [address] 17441- 6647 May, Bipolar disorder, in partial remission, most recent episode manic F31.73 [place] [address] [place] [address] 71260- 7805 May, Diabetes E11.9 and Chronic pain G89.29 [place] [address] [place] [address] 29903- 7755 14 May, 2015 [place] [id number] [place] [address] 48014- 4400 08 May, 2015 Bipolar disorder, in partial remission, most recent episode manic F31.73 ; Non compliance with medical treatment Z91.19 and 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 [place] [address], [place] [address]- 2863 May, Type 2 diabetes mellitus with complication E11.8 and Back pain M54.9 [place] [id number] [place] [address] 90093- 1104 May, Bipolar disorder, in partial remission, most recent episode manic F31.73 and 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 [place] [id number] [place] [address] 48033- 3620 Apr, [place] [id number] [place] [address] 77557- 6198 Apr, [place] [id number] [place] [address] 88246- 6371 Apr, [place] [id number] [place] [address] 22522- 5469 Apr, Diabetes E11.9 ; Irritable bowel syndrome with diarrhea K58.0 and Lumbar radiculopathy M54.16 [place] [id number] [place] [address] 45399- 8881 Apr, Breast screening Z12.39 [place] [id number] [place] [address] 60801- 3493 Apr, Bipolar disorder, in partial remission, most recent episode manic F31.73 ; Non compliance with medical treatment Z91.19 and 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60 ; 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 ; Extreme poverty Z59.5 and Generalized anxiety disorder F41.1 [place] [address] [address]- 8631 12 Mar, 2015 Bipolar disorder, in partial remission, most recent episode manic F31.73 ; 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 and Extreme poverty Z59.5 [place] [id number] [place] [address] 07171- 2907 Feb, Bipolar disorder, in partial remission, most recent episode manic F31.73 ; 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 and Extreme poverty Z59.5 [place] [address] [place] [address] 20627- 9376 Feb, Bipolar disorder, in partial remission, most recent episode manic F31.73 ; 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 and Extreme poverty Z59.5 [place] [address] [place] [address] 93290- 7284 Feb, [place] [id number] [place] [address] 37303- 6213 Jan, Type 2 diabetes mellitus with complication E11.8 and Petechiae R23.3 [place] [address] [place] [address] 23581- 7259 Jan, Type 2 diabetes mellitus with complication E11.8 ; Edema, unspecified R60.9 ; Petechiae R23.3 and Diabetes E11.9 [place] [address] [place] [address] 09640- 8676 Jan, Bipolar disorder, in partial remission, most recent episode manic F31.73 ; 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 and Extreme poverty Z59.5 [place] [address] [place] [address] 09338- 4111 Jan, Bipolar disorder, in partial remission, most recent episode manic F31.73 ; 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 and Extreme poverty Z59.5 [place] [address] [id number] [place] [address] 16544- 0274 Dec, Bipolar disorder, in partial remission, most recent episode manic F31.73 [place] [address] 29356- 5612 Dec, Edema, due to unspecified malnutrition type, unspecified edema R60.9 and Essential hypertension I10 [place] [address] 64995- 1680 Dec, Bipolar disorder, in partial remission, most recent episode manic F31.73 [place] [address] 41146- 5940 Nov, Bipolar I disorder, most recent episode (or current) mixed, unspecified 296.60 [place] [address] 87884- 6599 Nov, Stress incontinence, female 625.6 ; Back pain 724.5 and Leg pain 729.5 [place] [address] 33031- 9277 Nov, Generalized anxiety disorder 300.02 and Bipolar II disorder 296.89 [place] [address] 30931- 9948 Nov, Bipolar I disorder, most recent episode (or current) mixed, unspecified 296.60 [place] [address] [place] [id number] [place] [address] 33699- 0896 Oct, [place] [address] 41300- 2863 Oct, [place] [address] [place] [id number] [place] [address] 65926- 3186 Oct, [place] [address] [id number] [place] [address] 62560- 2986 Oct, Bipolar I disorder, most recent episode (or current) mixed, unspecified 296.60 [facility] [address] [address]- 8605 Sep, Diabetes 250.00 [facility] [address] [place] [address] 26330- 4087 Sep, Bipolar I disorder, most recent episode (or current) mixed, unspecified 296.60 [facility] [id number] [place] [address] 30275- 2618 Sep, [facility] [id number] [place] [address] 95584- 6425 Sep, [facility] [id number] [place] [address] 38779- 4780 Sep, Bipolar I disorder, most recent episode (or current) mixed, unspecified 296.60 [facility] [id number] [place] [address] 22116- 4186 Sep, Bipolar I disorder, most recent episode (or current) mixed, unspecified 296.60 [facility] [id number] [address] Sep, [facility] [id number] [place] [address] 48077- 4489 Sep, Anxiety 300.00 ; Diabetes 250.00 and Hyperlipidemia 272.4 [facility] [id number] [address] 3183 Aug, [facility] [id number] [address]- 4806 Aug, [facility] [id number], [place] [address] 5234 Aug, [facility] [id number] [address]- 4890 Aug, Bipolar I disorder, most recent episode (or current) mixed, unspecified 296.60 [facility] [id number] [place] [address] 84640- 3988 Aug, Generalized anxiety disorder 300.02 and Bipolar II disorder 296.89 [facility] [id number] [place] [address] 91016- 1706 July, Bipolar I disorder, most recent episode (or current) mixed, unspecified 296.60 [facility] [id number] [address] 4096 July, Cough 786.2 [facility] [id number] [place] [address] 77894- 3996 July, Bipolar I disorder, most recent episode (or current) mixed, unspecified 296.60 [facility] [id number] [place] [address] 42002- 2456 Jun, Diabetes 250.00 [facility] [id number] [address]- 9056 14 Jun, 2014 [facility] [id number] [address] 7541 Jun, [facility] [id number], [place] [address]- 0333 May, [facility] [id number] 4296 May, [facility] [id number] [address]- 6386 May, [facility] [id number], [place] [address]- 6366 May, [facility] [id number], [place] [address]- 6306 May, [facility] [id number], [place] [address]- 8426 May, [facility] [id number] [address]- 7506 Apr, [facility] [id number] [place] [address]- 4[address] 20 Apr, 2014 [facility] [place] [facility] [address] [id number] [place] [address] 2546 Apr, 2014 [facility] [place] [facility] [address] [id number] [place] [address] 2546 Apr, 2014 [facility] [place] [facility] [address] [id number] [place] [address] 2546 Apr, 2014 [facility] [place] [facility] [address] [id number] [place] [address]- 2546 Apr, 2014 [facility] [place] [facility] [address] [id number] [place] [address] 2546 Apr, [facility] [place] [facility] [address] [id number] [place] [address]- 2549 Apr, [facility] [place] [facility] [address] [id number] [place] [address]- 4013 Mar, [facility] [place] [facility] [address] [id number] [place] [address]- 3462 Mar, [facility] [place] [facility] [address] [id number] [place] [address]- 0345 Mar, [facility] [place] [facility] [address] [id number] [place] [address] 2541 Mar, [facility] [place] [facility] [address] [id number] [place] [address] 2544 Mar, [facility] [place] [facility] [address] [id number] [place] [address] 2549 Mar, [facility] [place] [facility] [address] [id number] [place] [address] 2546 Mar, [facility] [place] [facility] [address] [id number] [place] [address]- 2546 Mar, [facility] [place] [facility] [address] [id number] [place] [address]- 1506 Feb, [facility] [place] [facility] [address] [id number] [place] [address]- 2857 Feb, [facility] [place] [facility] [address] [id number] [place] [address]- 9660 Feb, [facility] [place] [facility] [address] [id number] [place] 1525 Feb, [facility] [place] [facility] [address] [id number] [place] 0471 Feb, [facility] [place] [facility] [address] [id number] [place] [address]- 5003 Feb, [facility] [place] [facility] [address] [id number] [place] [address]- 1707 Feb, [facility] [place] [facility] [address] [id number] [place] [address]- 3338 Feb, [facility] [place] [facility] [address] [id number] [place] [address]- 2007 Feb, [facility] [place] [facility] [address] [id number] [place] [address]- 8796 Feb, [facility] [place] [facility] [address] [id number] [place] [address]- 0880 Jan, [facility] [place] [facility] [address] [id number] [address]- 1059 Jan, [facility] [place] [facility] [address] [id number] [address]- 3348 Jan, [facility] [place] [facility] [address] [id number] [place] [address]- 4837 Jan, [facility] [place] [facility] [address] [id number] [address]- 9528 Jan, [facility] [place] [facility] [address] [id number] [place] [address]- 9309 Jan, [facility] [place] [facility] [address] [id number] [place] [address]- 2494 Jan, [facility] [place] [facility] [address] [id number] [place] [address]- 1569 Jan, [facility] [place] [facility] [address] [id number] [place] [address]- 9409 Jan, [facility] [place] [facility] [address] [id number] [place] [address]- 3439 Jan, [facility] [place] [facility] [address] [id number] [place] [address]- 1771 Jan, [facility] [place] [facility] [address] [id number] [place] [address]- 9887 Jan, [facility] [place] [facility] [address] [id number] [place] [address]- 7608 Jan, [facility] [place] [facility] [address] [id number] [place] [address]- 0446 Jan, [facility] [place] [facility] [address] [id number] [place] [address]- 9035 Jan, [facility] [place] [facility] [address] [id number] [place] [address]- 1474 Dec, [facility] [place] [facility] [address] [id number] [place] [address]- 6823 Dec, [facility] [place] [facility] [address] [id number] [place] [address]- 3591 Dec, [facility] [place] [facility] [address] [id number] [place] [address]- 6623 Dec, [facility] [place] [facility] [address] [id number] [place] [address]- 8040 Dec, [facility] [place] [facility] [address] [id number] [place] [address]- 1032 Dec, [facility] [place] [facility] [address] [id number] [place] [address]- 0336 Dec, [facility] [place] [facility] [address] [id number] [place] [address]- 4586 07 Dec, 2013 [facility] [place] [facility] [address] [id number] [place] [address]- 4954 25 Sep, 2013 [facility] [place] [facility] [address] [id number] [place] [address]- 0324 25 Sep, 2013 [facility] [place] [facility] [address] [id number] [place] [address]- 8908 10 Sep, 2013 [facility] [place] [facility] [address] [id number] [place] [address]- 7837 10 Sep, 2013 [facility] [place] [facility] [address] [id number] [place] [address]- 9204 08 Sep, 2013 [facility] [place] [facility] [address] [id number] [place] [address]- 5555 08 Sep, 2013 [facility] [place] [facility] [address] [id number] [place] [address]- 3790 08 Sep, 2013 [facility] [place] [facility] [address] [id number] [place] [address]- 4852 08 Sep, 2013 [facility] [place] [facility] [address] [id number] [place] [address]- 3119 08 Sep, 2013 [facility] [place] [facility] [address] [id number] [place] [address]- 6071 08 Sep, 2013 [facility] [place] [facility] [address] [id number] [place] [address]- 7539 04 Sep, 2013 [facility] [place] [facility] [address] [id number] [place] [address]- 2547 04 Sep, 2013 [facility] [place] [facility] [address] [id number] [place] [address]- 254 03 Sep, 2013 [facility] [place] [facility] [address] [id number] [place] [address]- 1796 02 Sep, 2013 [facility] [place] [facility] [address] [id number] [place] [address]- 7974 Nov, [facility] [place] [facility] [address] [id number] [place] [address]- 3417 Oct, [facility] [place] [facility] [address] [id number] [place] [address]- 0362 Oct, [facility] [place] [facility] [address] [id number] [place] [address]- 5708 Oct, [facility] [place] [facility] [address] [id number] [place] [address]- 6619 Oct, [facility] [place] [facility] [address] [id number] [place] [address]- 7943 Oct, [facility] [place] [facility] [address] [id number] [place] [address]- 0028 Oct, [facility] [place] [facility] [address] [id number] [place] [address]- 8142 Oct, [facility] [place] [facility] [address] [id number] [place] [address]- 3892 Oct, [facility] [place] [facility] [address] [id number] [place] [address]- 1235 Oct, [facility] [place] [facility] [address] [id number] [place] [address]- 5270 Oct, [facility] [place] [facility] [address] [id number] [place] [address]- 9125 Oct, [facility] [place] [facility] [address] [id number] [place] [address]- 4289 Oct, [facility] [place] [facility] [address] [id number] [place] [address]- 7475 Oct, [facility] [place] [facility] [address] [id number] [place] [address]- 7016 Oct, [facility] [place] [facility] [address] [id number] [place] [address]- 1925 Sep, [facility] [place] [facility] [address] [id number] [place] [address]- 8978 Sep, 2013 [facility] [place] [facility] [address] [id number] [place] [address]- 1052 Sep, 2013 [facility] [place] [facility] [address] [id number] [place] [address]- 8834 Sep, 2013 [facility] [place] [facility] [address] [id number] [place] [address]- 5838 Sep, 2013 [facility] [place] [facility] [address] [id number] [place] [address]- 1141 Sep, 2013 [facility] [place] [facility] [address] [id number] [place] [address]- 8605 Sep, [facility] [place] [facility] [address] [id number] [place] [address]- 2271 Sep, [facility] [place] [facility] [address] [id number] [place] [address]- 4600 Aug, [facility] [place] [facility] [address] [id number] [place] [address]- 3302 Aug, [facility] [place] [facility] [address] [id number] [place] [address]- 2614 Aug, [facility] [place] [facility] [address] [id number] [place] [address]- 3278 Aug, [facility] [place] [facility] [address] [id number] [place] [address]- 0232 Aug, [facility] [place] [facility] [address] [id number] [place] [address]- 3027 Aug, [facility] [place] [facility] [address] [id number] [place] [address]- 3728 Aug, [facility] [place] [facility] [address] [id number] [place] [address]- 6180 Aug, [facility] [place] [facility] [address] [id number] [place] 3154 July, [facility] [place] [facility] [address] [id number] [place] [address]- 8787 July, [facility] [place] [facility] [address] [id number] [place] [address]- 6685 July, [facility] [place] [facility] [address] [id number] [place] [address]- 7087 July, [facility] [place] [facility] [address] [id number] [place] [address]- 2727 July, [facility] [place] [facility] [address] [id number] [place] [address]- 8063 July, [facility] [place] [facility] [address] [id number] [place] [address]- 7712 July, [facility] [place] [facility] [address] [id number] [place] [address]- 0078 July, [facility] [place] [facility] [address] [id number] [place] [address]- 6718 Jun, [facility] [place] [facility] [address] [id number] [place] [address]- 0396 Jun, [facility] [place] [facility] [address] [id number] [place] [address]- 9726 Jun, [facility] [place] [facility] [address] [id number] [place] [address]- 0550 Jun, [facility] [place] [facility] [address] [id number] [place] [address]- 3572 Jun, [facility] [place] [facility] [address] [id number] [place] [address]- 2639 Jun, [facility] [place] [facility] [address] [id number] [place] [address]- 9797 Jun, [facility] [place] [facility] [address] [id number] [place] [address]- 5068 Jun, [facility] [place] [facility] [address] [id number] [place] [address]- 0405 Jun, [facility] [place] [facility] [address] [id number] [place] [address]- 0082 Jun, [facility] [place] [facility] [address] [id number] [place] 7293 Jun, [facility] [place] [facility] [address] [id number] [place] [address]- 6495 Jun, [facility] [place] [facility] [address] [id number] [place] [address]- 2223 May, [facility] [place] [facility] [address] [id number] [place] [address]- 9656 May, [facility] [place] [facility] [address] [id number] [place] [address]- 4319 May, [facility] [place] [facility] [address] [id number] [place] [address]- 1847 May, [facility] [place] [facility] [address] [id number] [place] [address]- 3042 May, [facility] [place] [facility] [address] [id number] [place] [address]- 8875 May, [facility] [place] [facility] [address] [id number] [place] [address]- 1647 May, [facility] [place] [facility] [address] [id number] [place] [address]- 2488 May, [facility] [place] [facility] [address] [id number] [place] [address]- 2389 May, [facility] [place] [facility] [address] [id number] [place] [address]- 6586 May, [facility] [place] [facility] [address] [id number] [place] [address]- 8828 May, [facility] [place] [facility] [address] [id number] [place] [address]- 7573 May, [facility] [place] [facility] [address] [id number] [place] [address]- 9507 May, [facility] [place] [facility] [address] [id number] [place] [address]- 3249 May, [facility] [place] [facility] [address] [id number] [place] [address]- 9321 Apr, [facility] [place] [facility] [address] [id number] [place] [address]- 1137 Apr, [facility] [place] [facility] [address] [id number] [place] [address]- 8833 Apr, [facility] [place] [facility] [address] [id number] [place] [address]- 7852 Apr, [facility] [place] [facility] [address] [facility] [id number] [place] [address]- 7167 Apr, [facility] [place] [facility] [address] [id number] [place] [address]- 6549 Apr, [facility] [place] [facility] [address] [id number] [place] [address]- 8881 Mar, [facility] [place] [facility] [address] [id number] [place] [address]- 6211 Mar, [facility] [place] [facility] [address] [id number] [place] [address]- 5212 Mar, [facility] [place] [facility] [address] [id number], [place] [address]- 8586 Mar, [facility] [place] [facility] [address] [id number] [place] [address]- 6003 Mar, [facility] [place] [facility] [address] [id number] [place] [address]- 3738 Mar, [facility] [place] [facility] [address] [id number] [place] [address]- 9753 Mar, [facility] [place] [facility] [address] [id number], [place] [address]- 0227 Mar, [facility] [address] [id number] [place] [address]- 1414 Mar, [facility] [place] [facility] [address] [id number] [place] [address]- 3704 Mar, [facility] [place] [facility] [address] [id number] [place] [address]- 7328 Mar, [facility] [place] [facility] [address] [id number] [place] [address]- 7877 Mar, [facility] [place] [facility] [address] [id number] [place] [address]- 7222 Mar, [facility] [place] [facility] [address] [id number] [place] [address]- 3101 Mar, [facility] [address] [id number] [place] [address]- 4847 Feb, [facility] [place] [facility] [address] [id number] [place] [address]- 1444 Feb, [facility] [place] [facility] [address] [id number] [place] [address]- 0101 Feb, [facility] [place] [facility] [address] [facility] [id number] [place] [address]- 9697 Feb, [facility] [place] [facility] [address] [id number] [place] [address]- 5325 Feb, [facility] [place] [facility] [address] [id number] [place] [address]- 4233 Feb, [facility] [place] [facility] [address] [id number] [place] [address]- 9513 Feb, [facility] [place] [facility] [address] [id number] [place] [address]- 1516 Feb, [facility] [place] [facility] [address] [facility] [id number] [place] [address]- 8905 Feb, [facility] [place] [facility] [address] [id number] [place] [address]- 9076 09 Feb, 2012 [facility] [place] [facility] [address] [id number] [place] [address]- 9440 Feb, 2012 [facility] [place] [facility] [address] [id number] [place] [address]- 3526 Feb, 2012 [facility] [place] [facility] [address] [id number] [place] [address]- 4223 05 Feb, 2012 [facility] [place] [facility] [address] [id number] [place] [address]- 3002 Feb, 2012 [facility] [place] [facility] [address] [id number] [place] [address]- 9508 Feb, 2012 [facility] [place] [facility] [address] [id number] [place] [address]- 8876 Feb, 2012 [facility] [place] [facility] [address] [id number] [place] [address]- 4357 24 Dec, 2012 [facility] [place] [facility] [address] [id number] [place] [address]- 7754 24 Dec, 2012 [facility] [place] [facility] [address] [id number] [place] [address]- 2602 16 Dec, 2012 [facility] [place] [facility] [address] [facility] [id number] [place] [address]- 8457 16 Dec, 2012 [facility] [place] [facility] [address] [id number] [place] [address]- 9949 16 Dec, 2012 [facility] [place] [facility] [address] [id number] [place] [address]- 3295 16 Dec, 2012 [facility] [place] [facility] [address] [id number] [place] [address]- 2441 14 Dec, 2012 [facility] [place] [facility] [address] [id number] [place] [address]- 3075 14 Dec, 2012 [facility] [place] [facility] [address] [id number] [place] [address]- 4429 10 Dec, 2012 [facility] [place] [facility] [address] [id number] [place] [address] 10 Dec, 2012 [facility] [place] [facility] [address] [id number] [place] [address] 5367 10 Dec, 2012 [facility] [place] [facility] [address] [id number] [place] [address] 5067 10 Dec, 2012 [facility] [place] [facility] [address] [id number] [place] [address] 1667 Dec, [facility] [place] [facility] [address] [id number] [place] [address] 2458 25 Nov, 2012 [facility] [place] [facility] [address] [id number] [place] [address]995 20 Nov, 2012 [facility] [place] [facility] [address] [id number] [place] [address] 2539 18 Nov, 2012 [facility] [place] [facility] [address] [id number] [place] [address]- 5193 16 Nov, 2012 [facility] [place] [facility] [address] [id number] [place] [address] 3787 12 Nov, 2012 [facility] [place] [facility] [address] [id number] [place] [address]- 4058 11 Nov, 2012 [facility] [place] [facility] [address] [id number] [place] [address]- 7245 05 Nov, 2012 [facility] [place] [facility] [address] [id number], [place] [address] 15 Oct, 2012 [facility] [place] [facility] [address] [id number] [place] [address] Oct, [facility] [place] [facility] [address] [id number], [place] [address] Sep, [facility] [place] [facility] [address] [id number] [place] [address] 7340 Sep, [facility] [place] [facility] [address] [id number] [place] [address]- 3313 18 Sep, 2012 [facility] [address] [id number] [place] [address]- 2081 17 Sep, 2012 [facility] [place] [facility] [address] [id number] [place] [address] 7142 15 Sep, 2012 [facility] [address] [id number] [place] [address]- 3025 09 Sep, 2012 [facility] [place] [facility] [address] [id number] [place] [address]- 4071 08 Sep, 2012 [facility] [address] [id number] [place] [address] 9797 Aug, [facility] [place] [facility] [address] [id number] [place] [address] 0123 18 Aug, 2012 [facility] [address] [id number] [place] [address]- 9850 16 Aug, 2012 [facility] [address] [id number] [place] [address]- 6611 Aug, [facility] [place] [facility] [address] [id number] [place] [address]- 4807 Aug, [facility] [place] [facility] [address] [id number] [place] [address]- 4286 Aug, [facility] [place] [facility] [address] [id number] [place] [address] 9387 Aug, [facility] [place] [facility] [address] [id number] [place] [address] 7171 Aug, [facility] [place] [facility] [address] [id number] [place] [address] 4050 July, [facility] [place] [facility] [address] [id number] [place] [address] 9355 July, [facility] [place] [facility] [address] [id number] [place] [address] 68[address] July, [facility] [place] [facility] [address] [id number] [place] [id number] July, [facility] [address] [id number] [place] [address] 1038 July, [facility] [address] [id number] [place] [address]- 1556 Jun, [facility] [address] [id number] [place] [address]- 8913 May, [facility] [address] [id number] [place] [address]- 2624 May, [facility] [address] [id number] [place] [address]- 7320 May, [facility] [address] [id number] [place] [address]- 7270 Apr, [facility] [address] [id number] [place] [address]- [address]326 Apr, [facility] [address] [id number] [place] [address]- 3943 Apr, [facility] [address] [id number] [place] [address] 6448 Mar, [facility] [address] [id number] [place] [address] 9991 Mar, [facility] [address] [id number] [place] [address]- 3015 Mar, [facility] [address] [id number] [place] [address]- 3425 Mar, [facility] [address] [id number] [place] [address] 9716 Mar, [facility] [address] [id number] [place] [address]- 9136 09 Mar, 2012 [facility] [address] [id number] [place] [address]- 5284 Mar, [facility] [place] [facility] [address] [id number] [place] [address]- 7198 Feb, [facility] [place] [facility] [address] [id number] [place] [address]- 8206 Feb, [facility] [place] [facility] [address] [id number] [place] [address]- 5845 Feb, [facility] [place] [facility] [address] [id number] [place] [address]- 9833 Feb, [facility] [place] [facility] [address] [id number] [place] [address]- 8871 Feb, [facility] [place] [facility] [address] [id number] [place] [address]- 7720 Feb, [facility] [place] [facility] [address] [id number] [place] [address] Feb, [facility] [place] [facility] [address] [id number] [place] [address]- 1770 Feb, [facility] [place] [facility] [address] [id number] [place] [address]- 8499 Jan, [facility] [place] [facility] [address] [id number] [place] [address]- 0216 Jan, [facility] [place] [facility] [address] [id number] [place] [address]- 5044 Jan, [facility] [place] [facility] [address] [id number] [place] [address]- 0079 Jan, [facility] [place] [facility] [address] [id number] [place] [address]- 8713 Jan, [facility] [place] [facility] [address] [id number] [place] [address]- 0974 Jan, [facility] [place] [facility] [address] [id number] [place] [address]- 8088 Jan, [facility] [place] [facility] [address] [id number] [place] [address] 1944 Jan, [facility] [place] [facility] [address] [id number] [place] [address]- 8689 Jan, [facility] [place] [facility] [address] [id number] [place] [address]- 7894 Jan, [facility] [place] [facility] [address] [id number] [place] [address]- 2181 Jan, [facility] [place] [facility] [address] [id number] [place] [address]- 0689 Jan, [facility] [place] [facility] [address] [id number] [place] [address]- 5494 Jan, [facility] [place] [facility] [address] [id number] [place] [address]- 5249 Jan, [facility] [place] [facility] [address] [id number] [place] [address]- 1640 Jan, [facility] [place] [facility] [address] [id number] [place] [address] Jan, [facility] [place] [facility] [address] [facility] [id number] [place] [address] Dec, [facility] [place] [facility] [address] [id number] [place] [address] Dec, [facility] [place] [facility] [address] [id number] [place] [address] Dec, [facility] [place] [facility] [address] [id number] [place] [address] Dec, [facility] [place] [facility] [address] [id number] [place] [address] Dec, [facility] [place] [facility] [address] [facility] [id number] [place] [address] Dec, [facility] [place] [facility] [address] [id number] [place] [address] Dec, [facility] [place] [facility] [address] [id number] [place] [address] Dec, [facility] [place] [facility] [address] [id number] [place] [address] 08 Dec, 2011 [facility] [place] [facility] [address] [id number] [place] [address] 05 Dec, 2011 [facility] [place] [facility] [address] [id number] [place] [address] 18 Nov, 2011 [facility] [place] [facility] [address] [id number] [place] [address] 4740 13 Nov, 2011 [facility] [place] [facility] [address] [id number] [place] [address]60 24 Oct, 2011 [facility] [place] [facility] [address] [id number] [place] [address] Oct, [facility] [place] [facility] [address] [id number] [place] [address] 17 Oct, 2011 [facility] [place] [facility] [address] [id number] [place] [address] 16 Oct, 2011 [facility] [place] [facility] [address] [id number], [place] [address] Oct, [facility] [place] [facility] [address] [id number] [place] [address] Oct, [facility] [place] [facility] [address] [id number], [place] [address] Oct, [facility] [place] [facility] [address] [id number] [place] [address] Sep, [facility] [place] [facility] [address] [id number] [place] [address] Aug, [facility] [place] [facility] [address] [id number], [place] [address] Aug, [facility] [place] [facility] [address] [id number], [place] [address] Aug, [facility] [address] [id number] [place] [address] 1512 Aug, [facility] [place] [facility] [address] [id number] [place] [address] 39[address] Aug, [facility] [place] [facility] [address] [facility] [id number] [place] [address] July, [facility] [place] [facility] [address] [id number] [place] [address] July, [facility] [address] [id number] [place] [address] July, [facility] [place] [facility] [address] [id number] [place] [address] Jun, [facility] [id number] [place] [address] Jun, [facility] [place] [facility] [address] [id number] [place] [address] 1430 Jun, [facility] [address] [id number] [place] [address] 4698 Jun, [facility] [place] [facility] [address] [id number] [place] [address] May, [facility] [place] [facility] [address] [id number] [place] [address] 30 May, 2011 [facility] [place] [facility] [address] [id number] [place] [address] 29 May, 2011 [facility] [place] [facility] [address] [id number] [place] [address]751 May, [facility] [place] [facility] [address] [facility] [id number] [place] [address] 9[address] May, [facility] [place] [facility] [address] [facility] [id number] [place] [address] 6[address] May, [facility] [place] [facility] [address] [id number] [place] [address] 6985 21 May, 2011 [facility] [place] [facility] [address] [id number] [place] [address]126 19 May, 2011 [facility] [place] [facility] [address] [id number] [place] [address]- 2546 08 May, 2011 [facility] [place] [facility] [address] [id number] [place] [address] 2546 05 May, 2011 [facility] [place] [facility] [address] [id number] [place] [address]46 02 May, 2011 [facility] [place] [facility] [address] [id number] [place] [address] 2546 May, [facility] [place] [facility] [address] [id number] [place] [address]47 Mar, [facility] [place] [facility] [address] [id number] [place] [address] 0024 Mar, [facility] [place] [facility] [address] [id number] [place] [address]- [address]444 28 Feb, 2011 [facility] [place] [facility] [address] [id number] [place] [address] 7400 Feb, [facility] [place] [facility] [address] [id number] [place] [address] 6028 20 Feb, 2011 [facility] [place] [facility] [address] [id number] [place] [address]- 0966 15 Feb, 2011 [facility] [place] [facility] [address] [id number] [place] [address] 2546 13 Feb, 2011 [facility] [place] [facility] [address] [id number] [place] [address] 2546 13 Feb, 2011 [facility] [place] [facility] [address] [id number] [place] [address]46 13 Feb, 2011 [facility] [place] [facility] [address] [id number] [place] [address] 7023 Jan, [facility] [place] [facility] [address] [id number] [place] [address]- 7137 Jan, [facility] [place] [facility] [address] [id number] [place] [address] 2057 Jan, [facility] [place] [facility] [address] [id number] [place] [address] Jan, [facility] [place] [facility] [address] [id number] [place] [address] 8075 Jan, [facility] [place] [facility] [address] [id number] [place] [address] 5788 Jan, [facility] [place] [facility] [address] [id number] [place] [address]- 8125 Dec, [facility] [place] [facility] [address] [id number] [place] [address] 5305 Dec, [facility] [place] [facility] [address] [id number] [place] [address]- 5185 Dec, [facility] [place] [facility] [address] [id number] [place] [address]- 2165 July, [facility] [place] [facility] [address] [id number] [place] [address] 9112 July, [facility] [place] [facility] [address] [id number], [place] [address]- [address] Feb, [facility] [place] [facility] [address] [id number], [place] [address]- 99[address] Jan, [facility] [place] [facility] [address] [id number] [place] [address]- 4670 Dec, [facility] [place] [facility] [address] [id number], [place] [address]- 7634 Dec, [facility] [place] [facility] [address] [id number], [place] [address]- 9040 15 Sep, 2009 [facility] [place] [facility] [address] [facility] [id number], [place] [address] 3466 Aug, [facility] [address] [facility] [id number] [place] [address] Jun, [facility] [address] [facility] [id number][place] [address] Jun, [facility] [address] [facility] [id number], [place] [address]- [address]555 Jan, [facility] [address] [facility] [id number], [place] [address] 2542 Jan, [facility] [address] [facility] [id number] [place] [address], [place] [address]- 0976 Jan, [facility] [address] [facility] [id number] [place] [address]- 0344 Jan, [facility] [id number] [address] Dec, [facility] [address] [facility] [id number], [place] [address]- 1753 Dec, [facility] [address] [id number] [address] Dec, [facility] [address] [facility] [id number], [place] [address]- 9651 Nov, [facility] [id number], [place] [address]17 July, [facility] [address] [facility] [id number], [place] [address]- 2904 May, [facility] [address] [facility] [id number], [place] [address]- 0406 Apr, [facility] [address] [facility] [id number], [place] [address]- [address]286 29 Feb, 2008 [facility] [address] [facility] [id number][place] [address] Dec, IMMUNIZATIONS No Known Immunizations SOCIAL HISTORY Never Assessed REASON FOR VISIT f/u PLAN OF CARE Activity Details Follow Up 2 sessions, 2 weeks apart, 1/2 hour. Reason: VITAL SIGNS MEDICATIONS Unknown Medications RESULTS No Results PROCEDURES Procedure Date Ordered Result Body Site Psychotherapy, patient &/family, 30 minutes, established patient Apr 02, 2017 INSTRUCTIONS MEDICATIONS ADMINISTERED No Known [...]
--- OUTSIDE RECORDS SUMMARY | 2018-06-14 14:53 | XMS REPORT ---
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5 Active 14836916 Problem Type 2 diabetes mellitus with complication E11.8 Active 840188017 Problem Post laminectomy syndrome M96.1 Active 13684491 Problem Eye exam normal Z01.00 Active 934102250 Problem Bipolar disorder, in partial remission, most recent episode manic F31.73 Active 06749913 Problem Extreme poverty Z59.5 Active 35367913 Problem Obesity, unspecified 278.00 Active 217981397 Problem 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 Active 69521113 Problem Hyperlipidemia 272.4 Active 04399539 Problem Non compliance with medical treatment Z91.19 Active 0818910 ALLERGIES No Information ENCOUNTERS Encounter Location Date Diagnosis [facility] [address] [address] Aug, [facility] [address] [address] Aug, [facility] [id number] [address] Aug, [facility] [id number] [place] [address] 48850- 3993 July, Bipolar 1 disorder F31.9 ; 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 and Extreme poverty Z59.5 [facility] [id number] [place] [address] Jun, Bipolar 1 disorder F31.9 ; 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 and Extreme poverty Z59.5 [facility] [id number] [place] [address] 45913- 6380 Jun, Bipolar 1 disorder F31.9 ; 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 and Extreme poverty Z59.5 [facility] [address] [id number]- 1735 Jun, Bipolar 1 disorder F31.9 ; 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 and Extreme poverty Z59.5 [facility] [id number] [place] [address] 62399- 0062 May, Urinary tract infection without hematuria, site unspecified N39.0 [facility] [id number] [place] [address] 76256- 1506 May, Bipolar 1 disorder F31.9 ; 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 and Extreme poverty Z59.5 [facility] [id number] [place] [address] 62896- 9806 Apr, Diabetes E11.9 and Breast cancer screening Z12.31 [facility] [id number] [place] [address] 85473- 1157 Apr, Bipolar 1 disorder F31.9 and 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 [facility] [id number] [place] [address] 22438- 6061 Mar, Bipolar 1 disorder F31.9 ; 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 and Extreme poverty Z59.5 [facility] [id number] [place] [address] 90428- 4177 Mar, New daily persistent headache G44.52 ; Leg pain 729.5 and History of carpal tunnel release Z98.890 [facility] [id number] [place] [address] 77737- 7816 Mar, Hyperlipidemia, unspecified E78.5 [facility] [id number] [place] [address] 83131- 5929 05 Mar, 2017 Bipolar 1 disorder F31.9 ; 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 and Extreme poverty Z59.5 [facility] [id number] [place] [address] 13308- 7557 Feb, Bipolar 1 disorder F31.9 ; 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 and Extreme poverty Z59.5 [facility] [address] 29720- 7348 Feb, Diabetes E11.[address] 65065- 8142 Feb, Viral syndrome B34.[address] 57990- 9438 Jan, Other viral agents as the cause of diseases classified elsewhere B97.89 and Acute upper respiratory infection, unspecified J06.9 [facility] [id number] [place] [address] 68342- 3041 Jan, Bipolar 1 disorder F31.9 and 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 [facility] [id number] [place] [address] 81463- 4699 Jan, Bipolar 1 disorder F31.9 ; 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 and Extreme poverty Z59.5 [facility] [id number] [place] [address] 91415- 4582 Dec, Diabetes E11.9 [facility] [address] 69378- 1326 Dec, Diabetes E11.9 and Encounter for immunization Z23 [address] 73133- 9118 Dec, Bipolar 1 disorder F31.9 ; 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 and Extreme poverty Z59.5 [facility] [id number] [place] [address] 27124- 7012 Dec, Back pain M54.9 [facility] [id number] [place] [address] 14027- 6712 Nov, [facility] [id number] [place] [address] 61882- 0693 Nov, Bipolar 1 disorder F31.9 ; 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 and Extreme poverty Z59.5 [facility] [id number] [place] [address] 14506- 8633 Nov, Bipolar 1 disorder F31.9 ; 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 and Extreme poverty Z59.5 [facility] [id number] [place] [address] 97285- 6018 Oct, 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 and Bipolar 1 disorder F31.9 [facility] [id number] [place] [address] 30601- 4278 Oct, Back pain M54.9 [facility] [id number] [place] [address] 40746- 0322 Oct, Bipolar 1 disorder F31.9 ; 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 and Extreme poverty Z59.5 [facility] [id number] [place] [address] 10169- 4073 Oct, 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 and Type 2 diabetes mellitus with complication E11.8 [facility] [id number] [place] [address] 00959- 3683 Sep, Bipolar 1 disorder F31.9 ; 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 and Extreme poverty Z59.5 [facility] [id number] [place] [address] 00829- 9825 Sep, 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 and Bipolar 1 disorder F31.9 [facility] [id number] [place] [address] 70150- 3119 Sep, Bipolar 1 disorder F31.9 ; 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 and Extreme poverty Z59.5 [facility] [place] [id number] [place] [address] 96036- 4778 Aug, Diabetes E11.9 ; Hyperlipidemia, unspecified E78.5 and Lumbar radiculopathy M54.16 [facility] [id number] [place] [address] 37393- 5521 Aug, Bipolar 1 disorder F31.9 ; 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 and Extreme poverty Z59.5 [facility] [id number] [place] [address] 47469- 0357 Aug, [facility] [id number] [place] [address] 25157- 5256 Aug, [facility] [id number] [place] [address] 25123- 3900 Aug, [facility] [id number] [place] [address] 57869- 8065 July, [facility] [id number] [place] [address] 67158- 6487 July, Acute bilateral low back pain with right-sided sciatica M54.41 [facility] [id number] [place] [address] 33264- 9468 July, Bipolar 1 disorder F31.9 ; 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 and Extreme poverty Z59.5 [facility] [id number] [place] [address] 83191- 2889 July, Back pain M54.9 and Diabetes E11.9 [facility] [id number] [place] [address] 82003- 8343 Jun, Bipolar 1 disorder F31.9 ; 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 and Extreme poverty Z59.5 [facility] [id number] [place] [address] 18534- 1006 Jun, Bipolar 1 disorder F31.9 ; 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 and Extreme poverty Z59.5 [facility] [id number] [place] [address] 78826- 9950 May, Visit for pelvic exam Z01.419 ; Acute vaginitis N76.0 and Diabetes E11.9 [place] [address] 24327- 6234 May, Bipolar 1 disorder F31.9 ; 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 and Extreme poverty Z59.5 [place] [address] 870100- 0187 May, [place] [address] 32557- 2099 May, [place] [address] 96190- 9495 May, Bipolar 1 disorder F31.9 ; 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 and Extreme poverty Z59.5 [facility] [place] [id number] [place] [address] 79495- 6682 May, Hyperlipidemia, unspecified E78.5 [facility] [id number] [place] [address] 05396- 5959 Apr, Breast cancer screening Z12.39 [facility] [id number] [place] [address] 99414- 8206 Mar, [facility] [id number] [place] [address] 83608- 9136 Mar, Bipolar disorder, current episode mixed, unspecified F31.60 [place] [id number]- 4736 Mar, Bipolar 1 disorder F31.9 ; 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 and Extreme poverty Z59.5 [place] [address] 57151- 6566 Feb, Acute nasopharyngitis [id number] [place] [address] 37327- 2064 27 Feb, 2016 Dental examination Z01.20 [facility] [place] [id number] [place] [address] 21055- 5482 21 Feb, 2016 Dental cavities K02.9 and Chronic periodontitis, unspecified K05.30 [place] [address] 41086- 9676 13 Feb, 2016 Low back pain M54.5 and Extreme poverty Z59.5 [place] [address] 83386- 0830 08 Feb, 2016 [facility] [id number] [place] [address] 18600- 7306 05 Feb, 2016 Routine gynecological examination V72.31 ; Breast cancer screening Z12.39 and Herpes simplex type 1 infection B00.9 [place] [id number] [place] [address] 33486- 7509 02 Feb, 2016 Diabetes E11.9 [place] [address] 91831- 2412 Feb, Encounter for dental examination and cleaning without abnormal findings Z01.20 [facility] [place] [id number] [place] [address] 04023- 6107 Jan, Hyperlipidemia, unspecified E78.5 [facility] [place] [id number] [place] [address] 61710- 2481 Jan, Bipolar 1 disorder F31.9 ; 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 and Extreme poverty Z59.5 [place] [id number] [place] [address] 46989- 2717 Jan, Diabetes E11.9 [facility] [id number] [place] [address] 38283- 1321 17 Jan, 2016 Diabetes E11.9 [facility] [facility] [id number] [place] [address] 57230- 7314 14 Dec, 2015 Bipolar 1 disorder F31.9 ; 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 and Extreme poverty Z59.5 [place] [id number] [place] [address] 45609- 6246 13 Dec, 2015 Bipolar disorder, current episode mixed, unspecified F31.60 and 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 [facility] [place] [id number] [place] [address] 26446- 5141 16 Nov, 2015 Bipolar 1 disorder F31.9 ; 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 ; Extreme poverty Z59.5 and Non compliance with medical treatment Z91.19 [facility] [id number] [place] [address] 59903- 9079 Oct, [facility] [id number] [place] [address] 15493- 2568 Oct, Dental caries K02.9 [facility] [facility] [id number] [place] [address] 41537- 4118 Oct, Low back pain M54.5 and Other chronic pain G89.29 [facility] [id number] [place] [address] 87397- 8326 Oct, Bipolar 1 disorder F31.9 ; 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 ; Extreme poverty Z59.5 and Non compliance with medical treatment Z91.19 [facility] [id number] [place] [address] 17894- 9378 Oct, [facility] [facility] [id number] [place] [address] 75429- 1072 Oct, [facility] [id number] [place] [address] 67509- 5064 Oct, Dental examination Z01.20 [facility] [id number] [place] [address] 82217- 8990 Oct, Bipolar 1 disorder F31.9 ; 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 ; Extreme poverty Z59.5 and Non compliance with medical treatment Z91.19 [facility] [facility] [address] [address]- 8269 Oct, [place] [address] [place] [address] 79434- 5325 Sep, Type 2 diabetes mellitus with complication E11.8 [facility] [facility] [address], [place] [address]- 1731 Sep, Bipolar disorder, current episode mixed, unspecified F31.60 [facility] [facility] [address] [address]- 7474 Sep, Bipolar disorder, current episode mixed, unspecified F31.60 [facility] [address] [place] [address] 14999- 5279 Sep, Bipolar disorder, in partial remission, most recent episode manic F31.73 ; 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 ; Extreme poverty Z59.5 and Non compliance with medical treatment Z91.19 [facility] [place] [address], [place] [address]- 5963 Aug, Bipolar disorder, in partial remission, most recent episode manic F31.73 ; 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 ; Extreme poverty Z59.5 and Non compliance with medical treatment Z91.19 [facility] [address], [place] [address]- 9578 Aug, Bipolar disorder, in partial remission, most recent episode manic F31.73 ; 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 ; Extreme poverty Z59.5 and Non compliance with medical treatment Z91.19 [place] [address] [address]- 4133 Aug, [place] [address] [place] [address] 45723- 1424 July, Bipolar disorder, in partial remission, most recent episode manic F31.73 ; 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 ; Extreme poverty Z59.5 and Non compliance with medical treatment Z91.19 [facility] [place] [id number] [place] [address] 43662- 0670 July, Bipolar disorder, current episode mixed, unspecified F31.60 [facility] [place] [id number] [place] [address] 35878- 0392 July, Bipolar disorder, in partial remission, most recent episode manic F31.73 ; 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 ; Extreme poverty Z59.5 and Non compliance with medical treatment Z91.19 [place] [id number] [place] [address] 18184- 5305 July, 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 and Chronic pain G89.29 [place] [place] [id number] [place] [address] 24185- 4373 Jun, FDC current 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 Z79.891 and Bipolar 1 disorder F31.9 [place] [id number] [place] [address] 67443- 7110 Jun, [place] [id number] [place] [address] 53535- 0319 Jun, [place] [id number] [place] [address] 33601- 6158 Jun, [place] [id number] [place] [address] 51085- 4403 Jun, Bipolar disorder, in partial remission, most recent episode manic F31.73 ; 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 and Non compliance with medical treatment Z91.19 [place] [address] [place] [address] 58401- 0263 May, Bipolar disorder, in partial remission, most recent episode manic F31.73 ; 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 and Non compliance with medical treatment Z91.19 [place] [address] [place] [address] 61878- 6139 May, Bipolar disorder, in partial remission, most recent episode manic F31.73 [facility] [place] [id number] [place] [address] 60984- 8922 May, Diabetes E11.9 and Chronic pain G89.29 [place] [id number] [place] [address] 51586- 4477 May, [place] [id number] [place] [address] 00813- 4877 May, Bipolar disorder, in partial remission, most recent episode manic F31.73 ; Non compliance with medical treatment Z91.19 and 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 [place] [id number] [place] [address] 69153- 6763 May, Type 2 diabetes mellitus with complication E11.8 and Back pain M54.9 [place] [id number] [place] [address] 32300- 0650 May, Bipolar disorder, in partial remission, most recent episode manic F31.73 and 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 [place] [id number] [place] [address] 92783- 5760 Apr, [place] [id number] [place] [address] 47246- 5995 Apr, [place] [id number] [place] [address] 37903- 6023 Apr, [place] [id number] [place] [address] 71388- 3561 Apr, Diabetes E11.9 ; Irritable bowel syndrome with diarrhea K58.0 and Lumbar radiculopathy M54.16 [place] [id number] [place] [address] 08886- 3239 Apr, Breast screening Z12.39 [place] [id number] [place] [address] 58540- 7439 Apr, Bipolar disorder, in partial remission, most recent episode manic F31.73 ; Non compliance with medical treatment Z91.19 and 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 [place] [address] [place] [address] 66290- 1164 Mar, Edema, unspecified type R60.9 and Type 2 diabetes mellitus with complication E11.8 [place] [id number] [place] [address] 04809- 4160 Mar, Bipolar disorder, in partial remission, most recent episode manic F31.73 ; Non compliance with medical treatment Z91.19 ; 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 and Extreme poverty Z59.5 [place] [id number] [place] [address] 64633- 5135 14 Mar, 2015 Bipolar disorder, current episode mixed, unspecified F31.60 ; 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 ; Extreme poverty Z59.5 and Generalized anxiety disorder F41.1 [place] [id number] [place] [address] 47757- 4049 12 Mar, 2015 Bipolar disorder, in partial remission, most recent episode manic F31.73 ; 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 and Extreme poverty Z59.5 [place] [address] [place] [address] 98816- 1001 Feb, Bipolar disorder, in partial remission, most recent episode manic F31.73 ; 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 and Extreme poverty Z59.5 [place] [address] [place] [address] 42835- 7956 11 Feb, 2015 Bipolar disorder, in partial remission, most recent episode manic F31.73 ; 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 and Extreme poverty Z59.5 [place] [address] [place] [address] 89575- 4520 Feb, [place] [id number] [place] [address] 30610- 6083 Jan, Type 2 diabetes mellitus with complication E11.8 and Petechiae R23.3 [place] [id number] [place] [address] 59262- 4167 Jan, Type 2 diabetes mellitus with complication E11.8 ; Edema, unspecified R60.9 ; Petechiae R23.3 and Diabetes E11.9 [place] [id number] [place] [address] 74818- 5339 Jan, Bipolar disorder, in partial remission, most recent episode manic F31.73 ; 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 and Extreme poverty Z59.5 [place] [address] 330382- 7598 Jan, Bipolar disorder, in partial remission, most recent episode manic F31.73 ; 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 and Extreme poverty Z59.5 [place] [address] 123187- 9535 Dec, Bipolar disorder, in partial remission, most recent episode manic F31.73 [place] [address] 79552- 9987 Dec, Edema, due to unspecified malnutrition type, unspecified edema R60.9 and Essential hypertension I10 [place] [address] 033137- 1107 Dec, Bipolar disorder, in partial remission, most recent episode manic F31.73 [place] [address] 123183- 2807 Nov, Bipolar I disorder, most recent episode (or current) mixed, unspecified 296.60 [place] [address] 87358- 7357 Nov, Stress incontinence, female 625.6 ; Back pain 724.5 and Leg pain 729.5 [place] [address] 75564- 7088 Nov, Generalized anxiety disorder 300.02 and Bipolar II disorder 296.89 [place] [id number] [place] [address] 35423- 5499 Nov, Bipolar I disorder, most recent episode (or current) mixed, unspecified 296.60 [place] [address] [address]- 8605 Oct, [facility] [address], [place] [address]- 4124 Oct, [facility] [address] [place] [address] 41139- 5838 Oct, [facility] [id number] [place] [address] 58803- 5229 Oct, Bipolar I disorder, most recent episode (or current) mixed, unspecified 296.60 [facility] [address] [address]- 7410 Sep, Diabetes 250.00 [facility] [id number] [place] [address] 67535- 3563 Sep, Bipolar I disorder, most recent episode (or current) mixed, unspecified 296.60 [facility] [id number] [place] [address] 93252- 4730 Sep, [facility] [address] [address]- 3519 Sep, [facility] [id number] [place] [address] 56314- 8885 Sep, Bipolar I disorder, most recent episode (or current) mixed, unspecified 296.60 [facility] [address] [address]- 8643 Sep, Bipolar I disorder, most recent episode (or current) mixed, unspecified 296.60 [facility] [address], [place] [address]- 6599 Sep, [facility] [id number] [place] [address] 690540- 0616 Sep, Anxiety 300.00 ; Diabetes 250.00 and Hyperlipidemia 272.4 [facility] [id number] [address] Aug, [facility] [address] [address] 7[address] Aug, [facility] [address] [address] 42[address] Aug, [facility] [address] [address] Aug, Bipolar I disorder, most recent episode (or current) mixed, unspecified 296.60 [facility] [id number] [address] Aug, Generalized anxiety disorder 300.02 and Bipolar II disorder 296.89 [facility] [id number] [place] [address] 1873 July, Bipolar I disorder, most recent episode (or current) mixed, unspecified 296.60 [facility] [address] [address] July, Cough 786.2 [facility] [address] [address] July, Bipolar I disorder, most recent episode (or current) mixed, unspecified 296.60 [facility] [address], [place] [address] 7850 30 Jun, 2014 Diabetes 250.00 [facility] [address] [address] 5444 14 Jun, 2014 [facility] [address] [address] 1875 Jun, [facility] [address], [place] [address] 0365 May, [facility] [address] [address] May, [facility] [id number] [address] 1201 May, [facility] [id number] [place] [address] 10 May, 2014 [facility] [place] [facility] [address] [id number] [place] [address]- 3976 10 May, 2014 [facility] [place] [facility] [address] [id number] [place] [address] 2546 10 May, 2014 [facility] [place] [facility] [address] [id number] [place] [address]- 2026 Apr, 2014 [facility] [place] [facility] [address] [id number] [place] [address]- 254 Apr, 2014 [facility] [place] [facility] [address] [id number] [place] [address]- 7179 Apr, [facility] [place] [facility] [address] [id number] [place] [address]- 3233 Apr, [facility] [place] [facility] [address] [id number] [place] [address]- 2544 Apr, [facility] [place] [facility] [address] [id number] [place] [address]- 6645 Apr, [facility] [place] [facility] [address] [facility] [id number] [place] [address]- 3335 Apr, [facility] [place] [facility] [address] [facility] [id number] [place] [address]- 6761 Apr, [facility] [place] [facility] [address] [facility] [id number] [place] [address]- 2549 Mar, [facility] [place] [facility] [address] [id number] [place] [address]- 254 Mar, [facility] [place] [facility] [address] [id number] [place] [address] 2545 Mar, [facility] [place] [facility] [address] [facility] [id number] [place] [address]- 2540 Mar, [facility] [place] [facility] [address] [facility] [id number] [place] [address]- 2545 Mar, [facility] [place] [facility] [address] [id number] [place] [address]- 6945 Mar, [facility] [place] [facility] [address] [id number] [place] [address]- 5736 Mar, [facility] [place] [facility] [address] [id number] [place] [address]- 7810 Mar, [facility] [place] [facility] [address] [id number] [place] [address]- 0783 Feb, [facility] [place] [facility] [address] [id number] [place] [address] Feb, [facility] [place] [facility] [address] [id number] [place] [address]- 5885 Feb, [facility] [place] [facility] [address] [id number] [place] [address]- 3951 Feb, [facility] [place] [facility] [address] [id number] [place] [address]- 5873 Feb, [facility] [place] [facility] [address] [id number] [place] [address]- 6084 Feb, [facility] [place] [facility] [address] [id number] [place] [address]- 8747 Feb, [facility] [place] [facility] [address] [id number] [place] [address]- 2074 Feb, [facility] [place] [facility] [address] [id number] [address]- 5960 Feb, [facility] [place] [facility] [address] [id number] [place] [address]- 9564 Feb, [facility] [place] [facility] [address] [id number] [place] [address]- 2003 Jan, [facility] [place] [facility] [address] [id number] [place] [address]- 0140 Jan, [facility] [place] [facility] [address] [id number] [place] [address]- 8783 Jan, [facility] [place] [facility] [address] [id number] [place] [address]- 8469 Jan, [facility] [place] [facility] [address] [id number] [place] [address]- 0586 Jan, [facility] [place] [facility] [address] [id number] [place] [address]- 9084 Jan, [facility] [place] [facility] [address] [id number] [place] [address]- 8038 Jan, [facility] [place] [facility] [address] [id number] [place] [address]- 3705 Jan, [facility] [place] [facility] [address] [id number] [place] [address]- 1152 Jan, [facility] [place] [facility] [address] [id number] [place] [address]- 6985 Jan, [facility] [place] [facility] [address] [id number] [place] [address]- 1371 Jan, [facility] [place] [facility] [address] [id number] [place] [address]- 7157 Jan, [facility] [place] [facility] [address] [facility] [id number] [place] [address]- 0652 Jan, [facility] [place] [facility] [address] [id number] [place] [address]- 3983 Jan, [facility] [place] [facility] [address] [id number] [place] [address]- 9894 Jan, [facility] [place] [facility] [address] [id number] [place] [address]- 9582 Dec, [facility] [place] [facility] [address] [id number] [place] [address]- 3763 Dec, [facility] [place] [facility] [address] [id number] [place] [address]- 8977 16 Dec, 2013 [facility] [place] [facility] [address] [id number] [place] [address]- 0087 16 Dec, 2013 [facility] [place] [facility] [address] [id number] [place] [address]- 4148 Dec, 2013 [facility] [place] [facility] [address] [id number] [place] [address]- 4210 Dec, 2013 [facility] [place] [facility] [address] [id number] [place] [address]- 5907 Dec, 2013 [facility] [place] [facility] [address] [id number] [place] [address]- 0541 07 Dec, 2013 [facility] [place] [facility] [address] [id number] [place] [address]- 2368 25 Nov, 2013 [facility] [place] [facility] [address] [id number] [place] [address]- 1398 25 Sep, 2013 [facility] [place] [facility] [address] [id number] [place] [address]- 8494 10 Sep, 2013 [facility] [place] [facility] [address] [id number] [place] [address]- 9090 10 Sep, 2013 [facility] [place] [facility] [address] [id number] [place] [address]- 2028 08 Sep, 2013 [facility] [place] [facility] [address] [id number] [place] [address]- 7073 08 Sep, 2013 [facility] [place] [facility] [address] [id number] [address]- 9376 08 Sep, 2013 [facility] [place] [facility] [address] [id number] [place] [address]- 2772 08 Sep, 2013 [facility] [place] [facility] [address] [id number] [place] [address]- 4941 08 Sep, 2013 [facility] [place] [facility] [address] [id number] [place] [address]- 7300 08 Sep, 2013 [facility] [place] [facility] [address] [id number] [place] [address]- 9071 04 Nov, 2013 [facility] [place] [facility] [address] [id number] [place] [address]- 2163 04 Nov, 2013 [facility] [place] [facility] [address] [id number] [place] [address]- 6325 Nov, [facility] [place] [facility] [address] [id number] [place] [address]- 0280 Nov, [facility] [place] [facility] [address] [id number] [place] [address]- 4569 Nov, [facility] [place] [facility] [address] [id number] [place] [address]- 6561 Oct, [facility] [place] [facility] [address] [id number] [place] [address]- 8348 Oct, [facility] [place] [facility] [address] [id number] [place] [address]- 6975 Oct, [facility] [place] [facility] [address] [id number] [place] [address]- 5748 Oct, [facility] [place] [facility] [address] [id number] [place] [address]- 6169 Oct, [facility] [place] [facility] [address] [id number] [place] [address]- 3161 Oct, [facility] [place] [facility] [address] [id number] [place] [address]- 8063 Oct, [facility] [place] [facility] [address] [id number] [place] [address]- 4333 Oct, [facility] [place] [facility] [address] [id number] [place] [address]- 4445 Oct, [facility] [place] [facility] [address] [id number] [place] [address]- 1008 Oct, [facility] [place] [facility] [address] [id number] [place] [address]- 5932 Oct, [facility] [place] [facility] [address] [id number] [place] [address]- 1600 Oct, [facility] [place] [facility] [address] [id number] [place] [address]- 2091 Oct, [facility] [place] [facility] [address] [id number] [place] [address]- 0256 Oct, [facility] [place] [facility] [address] [id number] [place] [address]- 8583 Sep, [facility] [place] [facility] [address] [id number] [place] [address]- 1496 Sep, [facility] [place] [facility] [address] [id number] [place] [address]- 5051 Sep, [facility] [place] [facility] [address] [id number] [place] [address]- 5078 Sep, [facility] [place] [facility] [address] [id number] [place] [address]- 3459 Sep, [facility] [place] [facility] [address] [id number] [place] [address]- 6411 Sep, [facility] [place] [facility] [address] [id number] [place] [address]- 3161 Sep, [facility] [place] [facility] [address] [id number] [place] [address]- 7418 Sep, [facility] [place] [facility] [address] [id number] [place] [address]- 0590 Aug, [facility] [place] [facility] [address] [id number] [place] [address]- 4777 Aug, [facility] [place] [facility] [address] [id number] [place] [address]- 8321 Aug, [facility] [place] [facility] [address] [id number] [place] [address]- 2546 Aug, [facility] [place] [facility] [address] [id number] [place] [address]- 7819 Aug, [facility] [place] [facility] [address] [id number] [place] [address]- 9436 Aug, [facility] [place] [facility] [address] [id number] [place] [address]- 4448 Aug, [facility] [place] [facility] [address] [id number] [place] [address]- 2807 Aug, [facility] [place] [facility] [address] [id number] [place] [address]- 7342 July, [facility] [place] [facility] [address] [id number] [place] [address]- 0522 July, [facility] [place] [facility] [address] [id number] [place] [address]- 8957 July, [facility] [place] [facility] [address] [id number] [place] [address]- 1529 July, [facility] [place] [facility] [address] [id number] [place] [address]- 1761 July, [facility] [place] [facility] [address] [id number] [place] [address]- 0798 July, [facility] [place] [facility] [address] [id number] [place] [address]- 8004 July, [facility] [place] [facility] [address] [id number] [place] [address]- 0866 July, [facility] [place] [facility] [address] [id number] [place] [address]- 2675 Jun, [facility] [place] [facility] [address] [id number] [place] [address]- 7583 Jun, [facility] [place] [facility] [address] [id number] [place] [address]- 7875 Jun, [facility] [place] [facility] [address] [id number] [place] [address]- 2487 Jun, [facility] [place] [facility] [address] [id number] [place] [address]- 8591 Jun, [facility] [place] [facility] [address] [id number] [place] [address]- 6835 Jun, [facility] [place] [facility] [address] [id number] [place] [address]- 9885 Jun, [facility] [place] [facility] [address] [id number] [place] [address]- 0380 Jun, [facility] [place] [facility] [address] [id number] [place] [address]- 6082 Jun, [facility] [place] [facility] [address] [id number] [place] [address]- 5568 Jun, [facility] [place] [facility] [address] [id number] [place] [address]- 9419 Jun, [facility] [place] [facility] [address] [id number] [place] [address]- 9665 Jun, [facility] [place] [facility] [address] [id number] [place] [address]- 9544 May, [facility] [place] [facility] [address] [id number] [place] [address]- 2326 May, [facility] [place] [facility] [address] [id number] [place] [address]- 9466 May, [facility] [place] [facility] [address] [id number] [place] [address]- 0554 May, [facility] [place] [facility] [address] [id number] [place] [address]- 2874 May, [facility] [place] [facility] [address] [id number] [place] [address]- 4947 May, [facility] [place] [facility] [address] [id number] [place] [address]- 0325 May, [facility] [place] [facility] [address] [id number] [place] [address]- 9240 May, [facility] [place] [facility] [address] [id number] [place] [address]- 8333 11 May, 2013 [facility] [place] [facility] [address] [id number] [place] [address]- 9866 May, [facility] [place] [facility] [address] [id number] [place] [address]- 7135 May, [facility] [place] [facility] [address] [id number] [place] [address]- 8733 May, [facility] [place] [facility] [address] [id number] [place] [address]- 3141 May, [facility] [place] [facility] [address] [id number] [place] [address]- 0297 May, [facility] [place] [facility] [address] [id number] [place] [address]- 4576 Apr, [facility] [place] [facility] [address] [id number] [place] [address]- 7902 Apr, [facility] [place] [facility] [address] [id number] [place] [address]- 2075 Apr, [facility] [place] [facility] [address] [facility] [id number] [place] [address]- 5153 Apr, [facility] [place] [facility] [address] [facility] [id number] [place] [address]- 0158 Apr, [facility] [place] [facility] [address] [id number] [place] [address]- 9012 Apr, [facility] [place] [facility] [address] [id number] [place] [address]- 8389 Mar, [facility] [place] [facility] [address] [id number] [place] [address]- 1153 Mar, [facility] [place] [facility] [address] [id number] [place] [address]- 3946 Mar, [facility] [place] [facility] [address] [id number] [address]- 8266 Mar, [facility] [address] [id number] [place] [address]- 2714 Mar, [facility] [place] [facility] [address] [id number] [place] [address]- 7921 Mar, [facility] [place] [facility] [address] [id number] [place] [address]- 1838 Mar, [facility] [place] [facility] [address] [id number] [place] [address]- 7111 Mar, [facility] [place] [facility] [address] [id number] [place] [address]- 8335 Mar, [facility] [place] [facility] [address] [id number] [place] [address]- 3978 Mar, [facility] [place] [facility] [address] [id number] [place] [address]- 3159 Mar, [facility] [place] [facility] [address] [id number] [place] [address]- 7004 Mar, [facility] [place] [facility] [address] [id number] [place] [address]- 9125 Mar, [facility] [place] [facility] [address] [id number] [place] [address]- 5900 Mar, [facility] [place] [facility] [address] [id number] [place] [address]- 4584 Feb, [facility] [place] [facility] [address] [id number] [place] [address]- 3345 Feb, [facility] [place] [facility] [address] [id number] [place] [address]- 0852 Feb, [facility] [place] [facility] [address] [id number] [place] [address]- 6665 Feb, [facility] [place] [facility] [address] [id number] [place] [address]- 6945 Feb, [facility] [place] [facility] [address] [id number] [place] [address]- 4840 30 Feb, 2012 [facility] [place] [facility] [address] [id number] [place] [address]- 3316 Feb, 2012 [facility] [place] [facility] [address] [id number] [place] [address]- 2568 Feb, 2012 [facility] [place] [facility] [address] [id number] [place] [address]- 5252 Feb, 2012 [facility] [place] [facility] [address] [id number] [place] [address]- 5477 Feb, 2012 [facility] [place] [facility] [address] [id number] [place] [address]- 3508 Feb, [facility] [place] [facility] [address] [id number] [place] [address]- 2750 Feb, 2012 [facility] [place] [facility] [address] [id number] [place] [address]- 2138 Feb, [facility] [place] [facility] [address] [id number] [place] [address]- 4563 Feb, [facility] [place] [facility] [address] [id number] [place] [address]- 5998 Feb, [facility] [place] [facility] [address] [facility] [id number] [place] [address]- 1742 Feb, [facility] [place] [facility] [address] [id number] [place] [address]- 0713 Dec, [facility] [place] [facility] [address] [id number] [place] [address]- 0614 24 Dec, 2012 [facility] [place] [facility] [address] [id number] [place] [address]- 0271 Dec, [facility] [place] [facility] [address] [id number] [place] [address]- 7276 Dec, [facility] [place] [facility] [address] [id number] [place] [address]- 3450 16 Dec, 2012 [facility] [place] [facility] [address] [id number] [place] [address]- 2953 16 Dec, 2012 [facility] [place] [facility] [address] [id number] [place] [address]- 8918 14 Dec, 2012 [facility] [place] [facility] [address] [id number] [place] [address] 14 Dec, 2012 [facility] [place] [facility] [address] [id number] [place] [address] 10 Dec, 2012 [facility] [place] [facility] [address] [id number] [place] [address]698 10 Dec, 2012 [facility] [place] [facility] [address] [id number] [place] [address] 10 Dec, 2012 [facility] [place] [facility] [address] [id number] [place] [address] 10 Dec, 2012 [facility] [place] [facility] [address] [id number], [place] [address] 03 Dec, 2012 [facility] [place] [facility] [address] [id number] [place] [address] 25 Sep, 2012 [facility] [place] [facility] [address] [id number], [place] [address] 20 Sep, 2012 [facility] [place] [facility] [address] [id number], [place] [address] 18 Sep, 2012 [facility] [place] [facility] [address] [id number], [place] [address] 16 Sep, 2012 [facility] [place] [facility] [address] [id number] [place] [address]- [address]377 12 Sep, 2012 [facility] [place] [facility] [address] [id number], [place] [address] 11 Sep, 2012 [facility] [place] [facility] [address] [id number], [place] [address] 05 Sep, 2012 [facility] [place] [facility] [address] [id number] [place] [address] 6342 15 Oct, 2012 [facility] [address] [id number] [place] [address] Oct, [facility] [place] [facility] [address] [id number] [place] [address] Sep, [facility] [place] [facility] [address] [id number] [place] [address] Sep, [facility] [place] [facility] [address] [id number] [place] [address]- 2465 Sep, [facility] [place] [facility] [address] [id number] [place] [address] Sep, [facility] [place] [facility] [address] [id number] [place] [address]- 6[address] Sep, [facility] [address] [id number] [place] [address] Sep, [facility] [place] [facility] [address] [id number] [place] [address] 49[address] Sep, [facility] [place] [facility] [address] [id number] [place] [address] Aug, [facility] [place] [facility] [address] [id number] [place] [address] Aug, [facility] [place] [facility] [address] [id number] [place] [address]- 3765 16 Aug, 2012 [facility] [place] [facility] [address] [id number] [place] [address]- 7023 13 Aug, 2012 [facility] [place] [facility] [address] [id number] [place] [address] 3[address] 11 Aug, 2012 [facility] [place] [facility] [address] [id number] [place] [address]- 6264 10 Aug, 2012 [facility] [place] [facility] [address] [id number] [place] [address] 4119 04 Aug, 2012 [facility] [place] [facility] [address] [id number] [place] [address] 2542 Aug, [facility] [address] [id number] [place] [address] July, [facility] [address] [id number] [place] [address] 8316 July, [facility] [address] [id number] [place] [address] July, [facility] [address] [id number] [place] [id number] July, [facility] [address] [id number] [place] [address] July, [facility] [address] [id number] [place] [address] Jun, [facility] [address] [id number] [place] [address] May, [facility] [address] [id number] [place] [address] 2846 May, [facility] [address] [id number] [place] [address] May, [facility] [address] [id number] [place] [address] 2636 Apr, [facility] [address] [id number] [place] [address]- 2546 Apr, [facility] [address] [id number] [place] [address]180 Apr, [facility] [address] [id number] [place] [address]46 Mar, [facility] [address] [id number] [place] [address] 2668 Mar, [facility] [address] [id number] [place] [address] 9111 28 Mar, 2012 [facility] [place] [facility] [address] [id number] [place] [address]- 0572 14 Mar, 2012 [facility] [place] [facility] [address] [id number] [place] [address]- 1235 10 Mar, 2012 [facility] [place] [facility] [address] [id number] [place] [address]- 2896 Mar, [facility] [place] [facility] [address] [id number] [place] [address] 9711 Mar, [facility] [place] [facility] [address] [id number] [place] [address] 1591 Feb, [facility] [place] [facility] [address] [id number] [place] [address]- 0054 Feb, [facility] [place] [facility] [address] [id number] [place] [address]- 9837 Feb, [facility] [place] [facility] [address] [id number] [place] [address]- 6853 18 Feb, 2012 [facility] [place] [facility] [address] [id number] [place] [address] 7947 Feb, [facility] [place] [facility] [address] [id number] [place] [address]376 17 Feb, 2012 [facility] [place] [facility] [address] [id number] [place] [address]- 7921 Feb, [facility] [place] [facility] [address] [id number] [place] [address] 0933 Feb, [facility] [place] [facility] [address] [id number] [place] [address]116 Jan, [facility] [place] [facility] [address] [id number] [place] [address]- 5187 Jan, [facility] [place] [facility] [address] [id number] [place] [address]- 2968 Jan, [facility] [place] [facility] [address] [id number] [place] [address]- [address]374 Jan, [facility] [place] [facility] [address] [id number] [place] [address]- 9879 Jan, [facility] [place] [facility] [address] [id number] [place] [address]- [address]552 Jan, [facility] [place] [facility] [address] [id number] [place] [address]- 9749 Jan, [facility] [place] [facility] [address] [id number] [place] [address]- 8878 Jan, [facility] [place] [facility] [address] [id number] [place] [address]- 3764 Jan, [facility] [place] [facility] [address] [facility] [id number] [place] [address]- 9731 Jan, [facility] [place] [facility] [address] [id number] [place] [address]- 2966 Jan, [facility] [place] [facility] [address] [id number] [place] [address]- 1064 Jan, [facility] [place] [facility] [address] [facility] [id number] [place] [address]- 8328 Jan, [facility] [place] [facility] [address] [facility] [id number] [place] [address] 9129 Jan, [facility] [place] [facility] [address] [id number] [place] [address] Jan, [facility] [place] [facility] [address] [id number] [place] [address] Jan, [facility] [place] [facility] [address] [id number] [place] [address] Dec, [facility] [place] [facility] [address] [id number] [place] [address] Dec, [facility] [place] [facility] [address] [id number] [place] [address] 16 Dec, 2011 [facility] [place] [facility] [address] [id number] [place] [address] 16 Dec, 2011 [facility] [place] [facility] [address] [id number] [place] [address] Dec, [facility] [place] [facility] [address] [id number] [place] [address] Dec, [facility] [place] [facility] [address] [id number] [place] [address] Dec, [facility] [place] [facility] [address] [id number] [place] [address] Dec, [facility] [place] [facility] [address] [id number] [place] [address] 08 Dec, 2011 [facility] [place] [facility] [address] [id number] [place] [address] Dec, [facility] [place] [facility] [address] [id number] [place] [address] 18 Nov, 2011 [facility] [place] [facility] [address] [id number] [place] [address] 1349 13 Nov, 2011 [facility] [place] [facility] [address] [id number] [place] [address]- [address] 24 Oct, 2011 [facility] [place] [facility] [address] [id number] [place] [address] Oct, [facility] [place] [facility] [address] [id number], [place] [address] 17 Oct, 2011 [facility] [place] [facility] [address] [id number] [place] [address]- [address] 16 Oct, 2011 [facility] [place] [facility] [address] [id number] [place] [address]- 1776 15 Oct, 2011 [facility] [place] [facility] [address] [id number], [place] [address]187 15 Oct, 2011 [facility] [place] [facility] [address] [id number], [place] [address] Oct, [facility] [address] [id number] [place] [address] Sep, [facility] [place] [facility] [address] [id number] [place] [address] Aug, [facility] [place] [facility] [address] [id number] [place] [address] Aug, [facility] [place] [facility] [address] [id number] [place] [address] Aug, [facility] [place] [facility] [address] [id number] [place] [address] Aug, [facility] [place] [facility] [address] [id number] [place] [address]65 Aug, [facility] [place] [facility] [id number] [place] [address] July, [facility] [place] [facility] [address] [id number] [place] [address] July, [facility] [place] [facility] [address] [id number] [place] [address] July, [facility] [place] [facility] [address] [id number] [place] [place] [address] Jun, [facility] [place] [facility] [address] [id number] [place] [address] Jun, [facility] [place] [facility] [address] [id number] [place] [address] Jun, [facility] [place] [facility] [address] [id number] [place] [address]41 Jun, [facility] [place] [facility] [address] [facility] [id number] [place] [address]- [address] May, [facility] [place] [facility] [address] [facility] [id number] [place] [address] May, [facility] [place] [facility] [address] [id number] [place] [address] 29 May, 2011 [facility] [place] [facility] [address] [id number] [place] [address]326 28 May, 2011 [facility] [place] [facility] [address] [id number] [place] [address] 2546 23 May, 2011 [facility] [place] [facility] [address] [id number] [place] [address] 2546 22 May, 2011 [facility] [place] [facility] [address] [id number] [place] [address] 2546 21 May, 2011 [facility] [place] [facility] [address] [id number] [place] [address]16 19 May, 2011 [facility] [place] [facility] [address] [id number] [place] [address]- 1326 08 May, 2011 [facility] [place] [facility] [address] [id number] [place] [address]- 267[address] 05 May, 2011 [facility] [place] [facility] [address] [id number] [place] [address]- [address] 02 May, 2011 [facility] [place] [facility] [address] [id number] [place] [address] May, [facility] [place] [facility] [address] [id number] [place] [address]- 8202 31 Mar, 2011 [facility] [place] [facility] [address] [id number] [place] [address]109 Mar, [facility] [place] [facility] [address] [id number] [place] [address] 2546 Feb, [facility] [place] [facility] [address] [id number] [place] [address]- [address]666 Feb, [facility] [place] [facility] [address] [id number] [place] [address] 2546 Feb, [facility] [place] [facility] [address] [id number] [place] [address] 15 Feb, 2011 [facility] [place] [facility] [address] [id number] [place] [address]- 6632 13 Feb, 2011 [facility] [place] [facility] [address] [id number] [place] [address] 4261 13 Feb, 2011 [facility] [place] [facility] [address] [id number] [place] [address] Feb, [facility] [place] [facility] [address] [id number] [place] [address]- 3216 28 Jan, 2011 [facility] [place] [facility] [address] [id number] [place] [address]- 4370 Jan, [facility] [place] [facility] [address] [id number] [place] [address] 9458 Jan, [facility] [place] [facility] [address] [id number] [place] [address] 6463 Jan, [facility] [place] [facility] [address] [id number] [place] [address] Jan, [facility] [place] [facility] [address] [id number] [place] [address] 6[address] Jan, [facility] [place] [facility] [address] [id number] [place] [address]- 2482 Dec, [facility] [place] [facility] [address] [id number], [place] [address]78 Dec, [facility] [place] [facility] [address] [id number], [place] [address] 9927 Dec, [facility] [place] [facility] [address] [id number] [place] [address]- [address]903 July, [facility] [place] [facility] [address] [id number], [place] [address] 6968 July, [facility] [place] [facility] [address] [id number], [place] [address] 48[address] 08 Feb, 2010 [facility] [place] [facility] [address] [id number], [place] [address] 18 Jan, 2010 [facility] [place] [facility] [address] [id number] [place] [address]- 5850 25 Dec, 2009 [facility] [place] [facility] [address] [id number] [place] [address]- 9925 Dec, [facility] [place] [facility] [address] [id number] [place] [address]- 1184 Sep, [facility] [place] [facility] [address] [id number] [place] [address]- [address]1 Aug, [facility] [place] [facility] [address] [id number] [place] [address]- 5367 Jun, [facility] [place] [facility] [address] [id number] [place] [address]- 4195 Jun, [facility] [place] [facility] [address] [facility] [id number] [place] [address]- 7174 Jan, [facility] [place] [facility] [address] [id number], [place] [address] 8148 Jan, [facility] [place] [facility] [address] [facility] [id number] [place] [address]- 2717 Jan, [facility] [place] [facility] [address] [facility] [id number], [place] [address]- 7744 Jan, [facility] [place] [facility] [address] [facility] [id number] [place] [address]- 0855 29 Dec, 2008 [facility] [place] [facility] [address] [id number], [place] [address]- 2545 Dec, [facility] [place] [facility] [address] [id number], [place] [address]- 6005 15 Dec, 2008 [facility] [place] [facility] [address] [facility] [id number], [place] [address]- 2548 Nov, [facility] [place] [facility] [address] [id number] [address] July, [facility] [address] [facility] [id number], [place] [address]- [address]46 May, [facility] [address] [facility] [id number], [place] [address]- [address] Apr, [facility] [address] [facility] [id number], [place] [address]- [address] Feb, [facility] [address] [facility] [id number], [place] [address]- 5836 Dec, IMMUNIZATIONS No Known Immunizations SOCIAL HISTORY Never Assessed REASON FOR VISIT PALS/Farxiga PLAN OF CARE VITAL SIGNS MEDICATIONS Medication [...]
--- OUTSIDE RECORDS SUMMARY | 2018-06-14 14:55 | XMS REPORT ---
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 Active 645294977 Problem Bipolar 1 disorder F31.9 Active 128805349 Problem Hyperlipidemia, unspecified E78.5 Active 77716803 Problem Type 2 diabetes mellitus with complication E11.8 Active 617651486 Problem Post laminectomy syndrome M96.1 Active 03497639 Problem Eye exam normal Z01.00 Active 487258934 Problem Bipolar disorder, in partial remission, most recent episode manic F31.73 Active 51097153 Problem Extreme poverty Z59.5 Active 41598109 Problem Obesity, unspecified 278.00 Active 889737706 Problem 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 Active 67881886 Problem Hyperlipidemia 272.4 Active 06618349 Problem Non compliance with medical treatment Z91.19 Active 6282795 ALLERGIES Substance Reaction Event Type Date Status Zithromax Chest pain Drug Allergy Dec, Active Prednisone elevated blood sugars Drug Allergy Dec, Active ENCOUNTERS Encounter Location Date Diagnosis [facility] [address] [facility] [id number] [address] Aug, [facility] [address] [facility] [id number], [place] [address] Aug, [facility] [address] [address] Aug, [facility] [address] [place] [address] 46397- 2240 July, Bipolar 1 disorder F31.9 ; 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 and Extreme poverty Z59.5 [facility] [address] [place] [address] 06895- 1049 Jun, Bipolar 1 disorder F31.9 ; 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 and Extreme poverty Z59.5 [facility] [address] [place] [address] 23579- 7187 Jun, Bipolar 1 disorder F31.9 ; 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 and Extreme poverty Z59.5 [facility] [address] [place] [address] 10678- 2798 Jun, Bipolar 1 disorder F31.9 ; 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 and Extreme poverty Z59.5 [facility] [facility] [address] [place] [address] 11545- 0262 May, Urinary tract infection without hematuria, site unspecified N39.0 [facility] [address] [place] [id number] [place] [address] 01200- 5264 May, Bipolar 1 disorder F31.9 ; 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 and Extreme poverty Z59.5 [facility] [address] [place] [address] 33418- 0242 Apr, Diabetes E11.9 and Breast cancer screening Z12.31 [facility] [address] [place] [address] 19398- 4002 Apr, Bipolar 1 disorder F31.9 and 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 [facility] [address] [place] [address] Mar, Bipolar 1 disorder F31.9 ; 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 and Extreme poverty Z59.5 [facility] [address] [place] [id number] [place] [address] 60429- 5343 Mar, New daily persistent headache G44.52 ; Leg pain 729.5 and History of carpal tunnel release Z98.890 [facility] [address] [place] [id number] [place] [address] 02233- 2090 Mar, Hyperlipidemia, unspecified E78.5 [place] [id number] [place] [address] 88840- 3800 Mar, Bipolar 1 disorder F31.9 ; 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 and Extreme poverty Z59.5 [facility] [address] 88837- 1802 Feb, Bipolar 1 disorder F31.9 ; 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 and Extreme poverty Z59.5 [facility] [facility] [address] 72135- 8129 Feb, Diabetes E11.[address] 12194- 6306 Feb, Viral syndrome B34.9 [place] [id number] [place] [address] 58520- 7800 Jan, Other viral agents as the cause of diseases classified elsewhere B97.89 and Acute upper respiratory infection, unspecified J06.9 [place] [id number] [place] [address] 87342- 8281 Jan, Bipolar 1 disorder F31.9 and 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 [facility] [address] [place] [id number] [place] [address] 34237- 7147 Jan, Bipolar 1 disorder F31.9 ; 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 and Extreme poverty Z59.5 [facility] [address] 11857- 6877 Dec, Diabetes E11.9 [facility] [place] [address] [place] [id number] [place] [address] 42502- 9857 Dec, Diabetes E11.9 and Encounter for immunization Z23 [facility] [address] [place] [address] 85572- 9746 Dec, Bipolar 1 disorder F31.9 ; 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 and Extreme poverty Z59.5 [facility] [address] [place] [id number] [place] [address] 16496- 2843 Dec, Back pain M54.9 [facility] [address] [place] [id number] [place] [address] 41387- 6393 Nov, [facility] [address] [place] [id number] [place] [address] 04997- 7606 Nov, Bipolar 1 disorder F31.9 ; 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 and Extreme poverty Z59.5 [facility] [address] [place] [id number] [place] [address] 63348- 3130 Nov, Bipolar 1 disorder F31.9 ; 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 and Extreme poverty Z59.5 [facility] [address] [place] [id number] [place] [address] 56739- 5780 Oct, 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 and Bipolar 1 disorder F31.9 [facility] [place] [address] [place] [id number] [place] [address] 86594- 3384 Oct, Bipolar 1 disorder F31.9 ; 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 and Extreme poverty Z59.5 [facility] [address] [place] [id number] [place] [address] 29543- 3616 Oct, Back pain M54.9 [facility] [address] [place] [id number] [place] [address] 60862- 3229 Oct, 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 and Type 2 diabetes mellitus with complication E11.8 [facility] [address] [place] [id number] [place] [address] 47893- 1308 Sep, Bipolar 1 disorder F31.9 ; 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 and Extreme poverty Z59.5 [facility] [place] [address] [place] [id number] [place] [address] 66308- 7584 Sep, 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 and Bipolar 1 disorder F31.9 [facility] [address] [place] [address] 72549- 3670 Sep, Bipolar 1 disorder F31.9 ; 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 and Extreme poverty Z59.5 [facility] [address] [place] [id number] [place] [address] 67856- 7712 Aug, Diabetes E11.9 ; Hyperlipidemia, unspecified E78.5 and Lumbar radiculopathy M54.16 [facility] [address] [place] [id number] [place] [address] 92611- 8768 Aug, Bipolar 1 disorder F31.9 ; 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 and Extreme poverty Z59.5 [facility] [address] [place] [id number] [place] [address] 53143- 5346 Aug, [facility] [place] [address] [place] [id number] [place] [address] 58741- 2032 Aug, [facility] [address] [place] [id number] [place] [address] 82521- 3094 Aug, [facility] [address] [place] [id number] [place] [address] 19941- 7399 July, [facility] [address] [place] [id number] [place] [address] 07234- 0717 July, Acute bilateral low back pain with right-sided sciatica M54.41 [facility] [address] [place] [id number] [place] [address] 13453- 6769 July, Bipolar 1 disorder F31.9 ; 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 and Extreme poverty Z59.5 [facility] [address] [place] [id number] [place] [address] 64088- 7791 July, Back pain M54.9 and Diabetes E11.9 [facility] [address] [place] [id number] [place] [address] 48719- 3801 Jun, Bipolar 1 disorder F31.9 ; 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 and Extreme poverty Z59.5 [facility] [facility] [address] [place] [address] 13373- 7425 Jun, Bipolar 1 disorder F31.9 ; 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 and Extreme poverty Z59.5 [facility] [facility] [address] [place] [address] 76800- 0766 May, Visit for pelvic exam Z01.419 ; Acute vaginitis N76.0 and Diabetes E11.9 [facility] [address] [place] [id number] [place] [address] 19601- 9471 16 May, 2016 Bipolar 1 disorder F31.9 ; 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 and Extreme poverty Z59.5 [facility] [address] [place] [id number] [place] [address] 31090- 6946 May, [facility] [address] [place] [id number] [place] [address] 62030- 7316 May, [facility] [address] [place] [id number] [place] [address] 27578- 4926 May, Bipolar 1 disorder F31.9 ; 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 and Extreme poverty Z59.5 [facility] [address] [place] [id number] [place] [address] 16574- 2293 May, Hyperlipidemia, unspecified E78.5 [facility] [place] [address] [place] [id number] [place] [address] 50570- 2045 Apr, Breast cancer screening Z12.39 [facility] [address] [place] [id number] [place] [address] 30901- 4220 Mar, [facility] [address] [place] [id number] [place] [address] 41332- 1233 Mar, Bipolar disorder, current episode mixed, unspecified F31.60 [facility] [address] [place] [address] 22549- 3238 Mar, Bipolar 1 disorder F31.9 ; 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 and Extreme poverty Z59.5 [facility] [address] [place] [id number] [place] [address] 17502- 8361 30 Feb, 2016 Acute nasopharyngitis J00 [facility] [address] [place] [id number] [place] [address] 24072- 0492 27 Feb, 2016 Dental examination Z01.20 [facility] [place] [address] [place] [id number] [place] [address] 62143- 4867 21 Feb, 2016 Dental cavities K02.9 and Chronic periodontitis, unspecified K05.30 [place] [address] 29423- 5191 13 Feb, 2016 Low back pain M54.5 and Extreme poverty Z59.5 [facility] [address] 35944- 6489 08 Feb, 2016 [facility] [address] 26270- 6417 05 Feb, 2016 Routine gynecological examination V72.31 ; Breast cancer screening Z12.39 and Herpes simplex type 1 infection B00.9 [facility] [address] 91149- 3785 02 Feb, 2016 Diabetes E11.9 [facility] [address] [place] [id number] [place] [address] 08015- 8827 Feb, Encounter for dental examination and cleaning without abnormal findings Z01.20 [facility] [address] [place] [id number] [place] [address] 60476- 7616 22 Jan, 2016 Hyperlipidemia, unspecified E78.5 [facility] [address] [place] [id number] [place] [address] 21683- 1807 Jan, Bipolar 1 disorder F31.9 ; 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 and Extreme poverty Z59.5 [facility] [address] [place] [id number] [place] [address] 50048- 4681 18 Jan, 2016 Diabetes E11.9 [place] [address] 15984- 0605 Jan, Diabetes E11.9 [facility] [address] [place] [id number] [place] [address] 34588- 9670 14 Dec, 2015 Bipolar 1 disorder F31.9 ; 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 and Extreme poverty Z59.5 [facility] [address] [place] [id number] [place] [address] 42780- 9814 13 Dec, 2015 Bipolar disorder, current episode mixed, unspecified F31.60 and 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 [facility] [address] [place] [id number] [place] [address] 31561- 0786 16 Nov, 2015 Bipolar 1 disorder F31.9 ; 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 ; Extreme poverty Z59.5 and Non compliance with medical treatment Z91.19 [facility] [place] [address] [place] [id number] [place] [address] 93994- 5915 Oct, [facility] [facility] [address] 96800- 4212 Oct, Dental caries K02.9 [facility] [address] [place] [id number] [place] [address] 14125- 0839 Oct, Low back pain M54.5 and Other chronic pain G89.29 [facility] [address] [place] [id number] [place] [address] 71248- 6050 Oct, Bipolar 1 disorder F31.9 ; 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 ; Extreme poverty Z59.5 and Non compliance with medical treatment Z91.19 [facility] [address] [place] [id number] [place] [address] 81265- 1993 Oct, [facility] [address] [place] [id number] [place] [address] 93399- 6538 Oct, [facility] [address] [place] [id number] [place] [address] 33621- 3958 Oct, Dental examination Z01.20 [facility] [address] [place] [id number] [place] [address] 41586- 2220 10 Aug, 2016 Bipolar 1 disorder F31.9 ; 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 ; Extreme poverty Z59.5 and Non compliance with medical treatment Z91.19 [facility] [address], [place] [address]- 2486 Oct, [facility] [address] [place] [address] 54780- 8548 Sep, Type 2 diabetes mellitus with complication E11.8 [facility] [place] [address] [place] [address] 59375- 6680 Sep, Bipolar disorder, current episode mixed, unspecified F31.60 [facility] [address] [place] [address] 81788- 9741 Sep, Bipolar disorder, current episode mixed, unspecified F31.60 [facility] [address] [address]- 1062 Sep, Bipolar disorder, in partial remission, most recent episode manic F31.73 ; 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 ; Extreme poverty Z59.5 and Non compliance with medical treatment Z91.19 [facility] [facility] [address], [place] [address]- 9731 Aug, Bipolar disorder, in partial remission, most recent episode manic F31.73 ; 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 ; Extreme poverty Z59.5 and Non compliance with medical treatment Z91.19 [facility] [address] [address]- 0861 Aug, Bipolar disorder, in partial remission, most recent episode manic F31.73 ; 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 ; Extreme poverty Z59.5 and Non compliance with medical treatment Z91.19 [facility] [address], [place] [address]- 9857 Aug, [facility] [facility] [address] [address]- 6190 July, Bipolar disorder, in partial remission, most recent episode manic F31.73 ; 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 ; Extreme poverty Z59.5 and Non compliance with medical treatment Z91.19 [facility] [address] [address]- 3997 July, Bipolar disorder, current episode mixed, unspecified F31.60 [facility] [address] [place] [address] 51447- 2685 July, Bipolar disorder, in partial remission, most recent episode manic F31.73 ; 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 ; Extreme poverty Z59.5 and Non compliance with medical treatment Z91.19 [facility] [address] [place] [address] 41029- 4538 July, skilled nursing current 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 Z79.891 and Chronic pain G89.29 [place] [address] [place] [address] 80023- 4858 Jun, 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 and Bipolar 1 disorder F31.9 [place] [address] [place] [address] 72159- 4616 Jun, [facility] [address] [place] [address] 78029- 7324 Jun, [facility] [address] [place] [address] 60714- 5791 Jun, [facility] [address] [place] [address] 76673- 0609 Jun, Bipolar disorder, in partial remission, most recent episode manic F31.73 ; 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 and Non compliance with medical treatment Z91.19 [facility] [address] [place] [address] 49465- 6862 May, Bipolar disorder, in partial remission, most recent episode manic F31.73 ; 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 and Non compliance with medical treatment Z91.19 [facility] [address], [place] [address]- 7259 May, Bipolar disorder, in partial remission, most recent episode manic F31.73 [facility] [address] [address]- 7417 May, Diabetes E11.9 and Chronic pain G89.29 [facility] [place] [address] [place] [id number] [place] [address] 04462- 2896 May, [facility] [address] [place] [id number] [place] [address] 43391- 1088 May, Bipolar disorder, in partial remission, most recent episode manic F31.73 ; Non compliance with medical treatment Z91.19 and 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 [facility] [address] [place] [id number] [place] [address] 60633- 0892 May, Type 2 diabetes mellitus with complication E11.8 and Back pain M54.9 [facility] [place] [address] [place] [id number] [place] [address] 93711- 8648 May, Bipolar disorder, in partial remission, most recent episode manic F31.73 and 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 [facility] [place] [address] [place] [id number] [place] [address] 37727- 0982 Apr, [facility] [address] [place] [id number] [place] [address] 97110- 1946 Apr, [place] [address] [place] [id number] [place] [address] 83863- 8411 Apr, [facility] [address] [place] [id number] [place] [address] 04872- 7750 Apr, Diabetes E11.9 ; Irritable bowel syndrome with diarrhea K58.0 and Lumbar radiculopathy M54.16 [facility] [address] [place] [id number] [place] [address] 55275- 7075 Apr, Breast screening Z12.39 [facility] [address] [place] [id number] [place] [address] 18134- 4359 Apr, Bipolar disorder, in partial remission, most recent episode manic F31.73 ; Non compliance with medical treatment Z91.19 and 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 [facility] [address] [place] [address] 81873- 0533 Mar, Edema, unspecified type R60.9 and Type 2 diabetes mellitus with complication E11.8 [facility] [address] [place] [id number] [place] [address] 16313- 6581 Mar, Bipolar disorder, in partial remission, most recent episode manic F31.73 ; Non compliance with medical treatment Z91.19 ; 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 and Extreme poverty Z59.5 [facility] [place] [address] [place] [id number] [place] [address] 21575- 7099 Mar, Bipolar disorder, current episode mixed, unspecified F31.60 ; 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 ; Extreme poverty Z59.5 and Generalized anxiety disorder F41.1 [facility] [address] 42315- 7074 Mar, Bipolar disorder, in partial remission, most recent episode manic F31.73 ; 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 and Extreme poverty Z59.5 [facility] [place] [address] [place] [id number] [place] [address] 50637- 0083 Feb, Bipolar disorder, in partial remission, most recent episode manic F31.73 ; 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 and Extreme poverty Z59.5 [facility] [address] [place] [address] 64414- 8297 Feb, Bipolar disorder, in partial remission, most recent episode manic F31.73 ; 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 and Extreme poverty Z59.5 [facility] [address] [place] [address] 90617- 8960 Feb, [facility] [address] [place] [id number] [place] [address] 74220- 2523 Jan, Type 2 diabetes mellitus with complication E11.8 and Petechiae R23.3 [facility] [facility] [address] [place] [address] 48896- 5742 Jan, Type 2 diabetes mellitus with complication E11.8 ; Edema, unspecified R60.9 ; Petechiae R23.3 and Diabetes E11.[address] 93663- 6398 Jan, Bipolar disorder, in partial remission, most recent episode manic F31.73 ; 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 and Extreme poverty Z59.[address] 97629- 7179 Jan, Bipolar disorder, in partial remission, most recent episode manic F31.73 ; 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 and Extreme poverty Z59.[address] 66164- 0861 Dec, Bipolar disorder, in partial remission, most recent episode manic F31.[address] 39425- 6411 Dec, Edema, due to unspecified malnutrition type, unspecified edema R60.9 and Essential hypertension I10 [address] 980112- 8038 Dec, Bipolar disorder, in partial remission, most recent episode manic F31.[address] 47175- 5615 Nov, Bipolar I disorder, most recent episode (or current) mixed, unspecified 296.[address] 49264- 1321 Nov, Stress incontinence, female 625.6 ; Back pain 724.5 and Leg pain 729.[address] 61483- 3154 Nov, Generalized anxiety disorder 300.02 and Bipolar II disorder 296.[address] 02109- 0443 Nov, Bipolar I disorder, most recent episode (or current) mixed, unspecified 296.60 [facility] [address] [address]- 0607 Oct, [facility] [address] [address]- 6389 Oct, [facility] [address] [address]- 1643 Oct, [facility] [address] [place] [address]- 0094 Oct, Bipolar I disorder, most recent episode (or current) mixed, unspecified 296.60 [facility] [address] [address]- 3150 Sep, Diabetes 250.00 [facility] [address] [place] [address]- 8094 Sep, Bipolar I disorder, most recent episode (or current) mixed, unspecified 296.60 [facility] [address] [address]- 5503 Sep, [facility] [address] [address]- 3951 Sep, [facility] [address] [place] [address]- 6045 Sep, Bipolar I disorder, most recent episode (or current) mixed, unspecified 296.60 [facility] [address] [address]- 7056 Sep, Bipolar I disorder, most recent episode (or current) mixed, unspecified 296.60 [facility] [address] 8734 Sep, [facility] [address] 6985 Sep, Anxiety 300.00 ; Diabetes 250.00 and Hyperlipidemia 272.4 [facility] [address] [address]- 4364 Aug, [facility] [address] [place] [id number] [place] [address] 50916- 2072 Aug, [facility] [id number] [address]- 4166 Aug, [facility] [id number] [place] [address] 32348- 3393 Aug, Bipolar I disorder, most recent episode (or current) mixed, unspecified 296.60 [facility] [address] [place] [id number] [place] [address]- 1646 Aug, Generalized anxiety disorder 300.02 and Bipolar II disorder 296.89 [facility] [id number] [place] [address] 28699- 5240 July, Bipolar I disorder, most recent episode (or current) mixed, unspecified 296.60 [facility] [id number] [place] [address] 66050- 7039 July, Cough 786.2 [facility] [id number] [place] [address] 31905- 8131 July, Bipolar I disorder, most recent episode (or current) mixed, unspecified 296.60 [facility] [id number] [address] 6[address] Jun, Diabetes 250.00 [facility] [id number] [address] 5[address] 14 Jun, 2014 [facility] [id number] [address] 65[address] Jun, [facility] [id number] [place] [address] 98282- 1519 May, [facility] [id number] [address] 6592 May, [facility] [id number] [place] [address] [place] [address]- 9538 10 May, 2014 [facility] [place] [facility] [address] [id number] [place] [address]- 5364 10 May, 2014 [facility] [place] [facility] [address] [id number] [place] [address]- 9002 10 May, 2014 [facility] [place] [facility] [address] [id number] [place] [address]- 7763 10 May, 2014 [facility] [place] [facility] [address] [id number] [place] [address]- 6731 Apr, 2014 [facility] [place] [facility] [address] [id number] [place] [address]- 4971 Apr, 2014 [facility] [place] [facility] [address] [id number] [place] [address]- 9640 Apr, [facility] [place] [facility] [address] [id number] [place] [address]- 6815 Apr, 2014 [facility] [place] [facility] [address] [id number] [place] [address]- 6646 Apr, [facility] [place] [facility] [address] [id number] [place] [address]- 9587 Apr, [facility] [place] [facility] [address] [id number] [place] [address]- 2084 Apr, [facility] [place] [facility] [address] [facility] [id number] [place] [address]- 2547 Apr, [facility] [place] [facility] [address] [id number] [address]- 7911 Mar, [facility] [place] [facility] [address] [id number] [place] [address]- 9928 Mar, [facility] [place] [facility] [address] [id number] [place] [address]- 1346 Mar, [facility] [place] [facility] [address] [id number] [place] [address]- 0090 Mar, [facility] [place] [facility] [address] [id number] [place] [address]- 8564 Mar, [facility] [place] [facility] [address] [id number] [place] [address]- 1123 Mar, [facility] [place] [facility] [address] [id number] [place] [address]- 5812 Mar, [facility] [place] [facility] [address] [id number] [place] [address]- 9828 Mar, [facility] [place] [facility] [address] [id number] [place] [address]- 5294 Feb, [facility] [place] [facility] [address] [id number] [place] [address]- 9523 Feb, [facility] [place] [facility] [address] [id number] [place] [address]- 0563 Feb, [facility] [place] [facility] [address] [id number] [place] [address]- 3365 Feb, [facility] [place] [facility] [address] [id number] [place] [address]- 6468 Feb, [facility] [place] [facility] [address] [id number] [place] [address]- 6225 Feb, [facility] [place] [facility] [address] [id number] [place] [address]- 2170 Feb, [facility] [place] [facility] [address] [id number] [place] [address]- 8254 Feb, [facility] [place] [facility] [address] [id number] [place] [address]- 0253 Feb, [facility] [place] [facility] [address] [id number] [place] 8565 Feb, [facility] [place] [facility] [address] [id number] [place] 4396 Jan, [facility] [place] [facility] [address] [id number] [place] [address]- 9903 Jan, [facility] [place] [facility] [address] [id number] [place] [address]- 5727 Jan, [facility] [place] [facility] [address] [id number] [place] [address]- 9982 Jan, [facility] [place] [facility] [address] [id number] [place] [address]- 0529 Jan, [facility] [place] [facility] [address] [id number] [place] [address]- 1507 Jan, [facility] [place] [facility] [address] [id number] [place] [address]- 5072 Jan, [facility] [place] [facility] [address] [id number] [place] [address]- 7281 Jan, [facility] [place] [facility] [address] [id number], [place] [address]- 0074 Jan, [facility] [place] [facility] [address] [id number], [place] [address]- 0258 Jan, [facility] [place] [facility] [address] [id number] [place] [address]- 6962 Jan, [facility] [place] [facility] [address] [id number], [place] [address]- 2349 Jan, [facility] [place] [facility] [address] [id number] [place] [address]- 3550 Jan, [facility] [place] [facility] [address] [id number], [place] [address]- 9956 Jan, [facility] [place] [facility] [address] [id number], [place] [address]- 9737 Jan, [facility] [place] [facility] [address] [id number], [place] [address]- 0458 Dec, [facility] [place] [facility] [address] [id number], [place] [address]- 7616 Dec, [facility] [place] [facility] [address] [id number] [place] [address]- 5912 16 Dec, 2013 [facility] [place] [facility] [address] [id number] [place] [address]- 6054 16 Dec, 2013 [facility] [place] [facility] [address] [id number] [place] [address]- 2486 Dec, 2013 [facility] [place] [facility] [address] [id number] [place] [address]- 9520 Dec, 2013 [facility] [place] [facility] [address] [id number] [place] [address]- 4765 Dec, 2013 [facility] [place] [facility] [address] [id number] [place] [address]- 2278 Dec, 2013 [facility] [place] [facility] [address] [id number] [place] [address]- 0418 25 Nov, 2013 [facility] [place] [facility] [address] [id number] [place] [address]- 2369 25 Sep, 2013 [facility] [place] [facility] [address] [id number] [place] [address] 2549 10 Sep, 2013 [facility] [place] [facility] [address] [id number] [place] [address]- 2541 10 Sep, 2013 [facility] [place] [facility] [address] [id number] [place] [address] 2548 08 Sep, 2013 [facility] [place] [facility] [address] [id number] [place] [address]- 2540 08 Sep, 2013 [facility] [place] [facility] [address] [id number] [place] [address] 2543 08 Sep, 2013 [facility] [place] [facility] [address] [id number] [place] [address] 2546 08 Sep, 2013 [facility] [place] [facility] [address] [id number] [place] [address]- 2549 08 Sep, 2013 [facility] [place] [facility] [address] [id number] [place] [address]- 1060 08 Nov, 2013 [facility] [place] [facility] [address] [id number] [place] [address]- 5616 04 Nov, 2013 [facility] [place] [facility] [address] [id number] [place] [address]- 5623 04 Nov, 2013 [facility] [place] [facility] [address] [id number] [place] [address]- 3200 Nov, 2013 [facility] [place] [facility] [address] [id number] [place] [address]- 9254 Nov, [facility] [place] [facility] [address] [id number] [place] [address]- 0129 Nov, [facility] [place] [facility] [address] [id number] [place] [address]- 7795 Oct, [facility] [place] [facility] [address] [id number] [place] [address]- 4451 Oct, [facility] [place] [facility] [address] [id number] [place] [address]- 5705 Oct, [facility] [place] [facility] [address] [id number] [place] [address]- 4166 Oct, [facility] [place] [facility] [address] [id number] [place] [address]- 6196 Oct, [facility] [place] [facility] [address] [id number], [place] [address]- 8624 Oct, [facility] [place] [facility] [address] [id number], [place] [address]- 5782 Oct, [facility] [place] [facility] [address] [id number] [place] [address]- 8259 Oct, [facility] [place] [facility] [address] [id number] [place] [address]- 2754 Oct, [facility] [place] [facility] [address] [id number] [place] [address]- 1819 Oct, [facility] [place] [facility] [address] [id number] [place] [address]- 2607 Oct, [facility] [place] [facility] [address] [id number] [place] [address]- 4563 Oct, [facility] [place] [facility] [address] [id number] [place] 2453 Oct, [facility] [place] [facility] [address] [id number] [place] [address]- 4998 Oct, [facility] [place] [facility] [address] [id number] [place] [address]- 5233 Sep, [facility] [place] [facility] [address] [id number] [place] [address]- 3995 Sep, [facility] [place] [facility] [address] [id number] [place] [address]- 2649 Sep, [facility] [place] [facility] [address] [id number] [place] [address]- 1679 Sep, [facility] [place] [facility] [address] [id number] [place] [address]- 2016 Sep, [facility] [place] [facility] [address] [id number] [place] [address]- 1958 Sep, [facility] [place] [facility] [address] [id number] [place] [address]- 7530 Sep, [facility] [place] [facility] [address] [id number] [place] [address]- 2658 Sep, [facility] [place] [facility] [address] [id number] [place] [address]- 0458 Aug, [facility] [place] [facility] [address] [id number] [place] [address]- 4561 Aug, [facility] [place] [facility] [address] [id number] [place] [address]- 3612 Aug, [facility] [place] [facility] [address] [id number] [place] [address]- 3322 Aug, [facility] [place] [facility] [address] [id number] [place] [address]- 9567 Aug, [facility] [place] [facility] [address] [id number] [place] [address]- 9434 Aug, [facility] [place] [facility] [address] [id number] [place] [address]- 3285 Aug, [facility] [place] [facility] [address] [id number] [place] [address]- 9861 Aug, [facility] [place] [facility] [address] [id number] [place] [address]- 5292 July, [facility] [place] [facility] [address] [id number] [place] [address]- 7272 July, [facility] [place] [facility] [address] [id number] [place] [address]- 2508 July, [facility] [place] [facility] [address] [id number] [place] [address]- 6390 July, [facility] [place] [facility] [address] [id number] [place] [address]- 4258 July, [facility] [place] [facility] [address] [id number] [place] [address]- 8525 July, [facility] [place] [facility] [address] [id number] [place] [address]- 9069 July, [facility] [place] [facility] [address] [id number] [place] [address]- 2414 July, [facility] [place] [facility] [address] [id number] [place] [address]- 1626 Jun, [facility] [place] [facility] [address] [id number] [place] [address]- 6687 Jun, [facility] [place] [facility] [address] [id number] [place] [address]- 8099 Jun, [facility] [place] [facility] [address] [id number] [place] [address]- 8820 Jun, [facility] [place] [facility] [address] [id number] [place] [address]- 0636 Jun, [facility] [place] [facility] [address] [id number] [place] [address]- 8227 Jun, [facility] [place] [facility] [address] [id number] [place] [address]- 4795 Jun, [facility] [place] [facility] [address] [id number] [place] [address]- 7899 Jun, [facility] [place] [facility] [address] [id number] [place] [address]- 9572 Jun, [facility] [place] [facility] [address] [id number] [place] [address]- 2352 Jun, [facility] [place] [facility] [address] [id number] [place] [address]- 9840 Jun, [facility] [place] [facility] [address] [id number] [place] [address]- 4285 Jun, [facility] [place] [facility] [address] [id number] [place] [address]- 5834 May, [facility] [place] [facility] [address] [id number] [place] [address]- 7730 May, [facility] [place] [facility] [address] [id number] [place] [address]- 9977 May, [facility] [place] [facility] [address] [id number] [place] [address]- 6077 May, [facility] [place] [facility] [address] [id number] [place] [address]- 6917 May, [facility] [place] [facility] [address] [id number] [place] [address]- 6962 May, [facility] [place] [facility] [address] [id number] [place] [address]- 5166 May, [facility] [place] [facility] [address] [id number] [place] [address]- 9461 12 May, 2013 [facility] [place] [facility] [address] [id number] [place] [address]- 6004 May, [facility] [place] [facility] [address] [id number] [place] [address]- 2818 May, [facility] [place] [facility] [address] [id number] [place] [address]- 7032 May, [facility] [place] [facility] [address] [id number] [place] [address]- 1606 May, [facility] [place] [facility] [address] [id number] [place] [address]- 1821 May, [facility] [place] [facility] [address] [facility] [id number] [place] [address]- 6251 May, [facility] [place] [facility] [address] [id number] [place] [address]- 7045 Apr, [facility] [place] [facility] [address] [id number] [place] [address]- 4752 Apr, [facility] [place] [facility] [address] [id number] [place] [address]- 5739 Apr, [facility] [place] [facility] [address] [address] [facility] [id number] [place] [address]- 1749 Apr, [facility] [place] [facility] [address] [id number] [place] [address]- 4635 Apr, [facility] [place] [facility] [address] [id number] [place] 0247 Apr, [facility] [place] [facility] [address] [id number] [place] [address]- 6743 Mar, [facility] [place] [facility] [address] [id number] [place] [address]- 0533 Mar, [facility] [place] [facility] [address] [id number] [place] [address]- 2336 Mar, [facility] [place] [facility] [address] [id number] [place] [address]- 8701 Mar, [facility] [place] [facility] [address] [id number] [place] [address]- 4260 Mar, [facility] [place] [facility] [address] [id number] [place] [address]- 5647 Mar, [facility] [place] [facility] [address] [id number] [place] [address]- 8802 Mar, [facility] [place] [facility] [address] [id number] [place] [address]- 2467 Mar, [facility] [place] [facility] [address] [id number] [place] [address]- 6808 Mar, [facility] [place] [facility] [address] [id number] [place] [address]- 4006 Mar, [facility] [place] [facility] [address] [id number] [place] [address]- 7873 Mar, [facility] [place] [facility] [address] [id number] [place] [address]- 4023 Mar, [facility] [place] [facility] [address] [id number] [place] [address]- 0487 Mar, [facility] [place] [facility] [address] [id number] [place] [address]- 8396 Mar, [facility] [place] [facility] [address] [id number] [place] [address]- 0248 Feb, [facility] [place] [facility] [address] [id number] [place] [address]- 3868 Feb, [facility] [place] [facility] [address] [id number] [place] [address]- 3788 Feb, [facility] [place] [facility] [address] [id number] [place] [address]- 2991 Feb, [facility] [place] [facility] [address] [id number] [place] [address]- 2850 30 Feb, 2012 [facility] [address] [id number] [place] [address]- 9340 Feb, 2012 [facility] [address] [id number] [place] 9507 Feb, [facility] [address] [id number] [place] [address]- 7545 Feb, 2012 [facility] [address] [id number] [place] [address]- 5770 Feb, 2012 [facility] [address] [id number] [place] [address]- 3612 Feb, [facility] [address] [facility] [address] [facility] [id number] [place] [address]- 4487 Feb, [facility] [address] [id number] [place] [address]- 9191 Feb, [facility] [address] [id number] [place] [address]- 3354 Feb, [facility] [address] [facility] [address] [facility] [id number] [place] [address]- 5487 Feb, [facility] [address] [facility] [address] [facility] [id number] [place] [address]- 6432 Feb, [facility] [place] [facility] [address] [id number] [place] [address]- 7331 Feb, [facility] [address] [id number] [place] [address]- 7072 Dec, [facility] [place] [facility] [address] [id number] [place] [address]- 6398 24 Dec, 2012 [facility] [address] [address] [facility] [id number] [place] [address]- 2060 Dec, [facility] [address] [facility] [address] [facility] [id number] [place] [address]- 3665 16 Dec, 2012 [facility] [place] [facility] [address] [id number] [place] [address]- 3023 16 Dec, 2012 [facility] [place] [facility] [address] [id number] [place] [address]- 1907 16 Dec, 2012 [facility] [place] [facility] [address] [id number] [place] [address]- 7134 14 Dec, 2012 [facility] [place] [facility] [address] [id number] [place] [address]- 4516 14 Dec, 2012 [facility] [place] [facility] [address] [id number] [place] [address]- 2508 10 Dec, 2012 [facility] [place] [facility] [address] [id number] [place] [address]- 0298 10 Dec, 2012 [facility] [place] [facility] [address] [id number] [place] [address]- 4773 10 Dec, 2012 [facility] [place] [facility] [address] [id number] [place] [address] 10 Dec, 2012 [facility] [place] [facility] [address] [id number] [place] [address] 03 Dec, 2012 [facility] [place] [facility] [address] [id number], [place] [address] 25 Nov, 2012 [facility] [place] [facility] [address] [id number], [place] [address] 20 Sep, 2012 [facility] [place] [facility] [address] [id number], [place] [address] 18 Sep, 2012 [facility] [place] [facility] [address] [id number] [place] [address] 16 Sep, 2012 [facility] [place] [facility] [address] [id number], [place] [address] 12 Sep, 2012 [facility] [place] [facility] [address] [id number], [place] [address] 11 Sep, 2012 [facility] [place] [facility] [address] [id number], [place] [address] 05 Nov, 2012 [facility] [place] [facility] [address] [id number] [place] [address] Oct, [facility] [place] [facility] [address] [id number] [place] [address] Oct, [facility] [place] [facility] [address] [id number] [place] [address] Sep, [facility] [place] [facility] [address] [id number] [place] [address] 40[address] Sep, [facility] [place] [facility] [address] [id number] [place] [address] Sep, [facility] [place] [facility] [address] [id number] [place] [address] 60[address] Sep, [facility] [place] [facility] [address] [id number] [place] [address] 1684 Sep, [facility] [place] [facility] [address] [id number] [place] [address] 33[address] Sep, [facility] [place] [facility] [address] [id number] [place] [address]- 1771 Sep, [facility] [place] [facility] [address] [id number] [place] [address] Aug, [facility] [place] [facility] [address] [id number] [place] [address] Aug, [facility] [place] [facility] [address] [id number] [place] [address]- 67[address] 16 Aug, 2012 [facility] [place] [facility] [address] [id number] [place] [address] 1986 13 Aug, 2012 [facility] [place] [facility] [address] [id number] [place] [address] 1577 Aug, [facility] [place] [facility] [address] [id number] [place] [address]- 2651 10 Aug, 2012 [facility] [place] [facility] [address] [id number] [place] [address]- 2546 Aug, [facility] [address] [id number] [place] [address] Aug, [facility] [address] [id number] [place] [address] July, [facility] [address] [id number] [place] [address] July, [facility] [address] [id number] [place] [address] July, [facility] [address] [id number] [place] [id number] July, [facility] [address] [id number] [place] [address] July, [facility] [address] [id number] [place] [address]46 Jun, [facility] [address] [id number] [place] [address]46 May, [facility] [address] [id number] [place] [address]46 May, [facility] [address] [id number] [place] [address]46 May, [facility] [address] [id number] [place] [address]46 Apr, [facility] [address] [id number] [place] [address]- [address]46 Apr, [facility] [place] [facility] [address] [id number] [place] [address] Apr, [facility] [address] [id number] [place] [address] Mar, [facility] [address] [id number] [place] [address] 9332 Mar, [facility] [address] [id number] [place] [address] 28 Mar, 2012 [facility] [place] [facility] [address] [id number] [place] [address]- 3362 14 Mar, 2012 [facility] [address] [id number] [place] [address] 64[address] Mar, [facility] [address] [id number] [place] [address] Mar, [facility] [address] [id number] [place] [address] 8540 Mar, [facility] [address] [id number] [place] [address]- [address]395 Feb, [facility] [address] [id number] [place] [address]- 8711 Feb, [facility] [place] [facility] [address] [id number] [place] [address]- 5233 Feb, [facility] [place] [facility] [address] [id number] [place] [address] 0737 Feb, [facility] [place] [facility] [address] [id number] [place] [address] 9[address] Feb, [facility] [place] [facility] [address] [id number] [place] [address]- 9692 Feb, [facility] [place] [facility] [address] [id number], [place] [address] Feb, [facility] [place] [facility] [address] [id number] [place] [address] 7747 Feb, [facility] [place] [facility] [address] [id number] [place] [address] 2780 Jan, [facility] [place] [facility] [address] [id number] [place] [address] 6[address] Jan, [facility] [place] [facility] [address] [id number] [place] [address]- 5652 Jan, [facility] [place] [facility] [address] [id number] [place] [address]- 6098 Jan, [facility] [place] [facility] [address] [id number] [place] [address]- 3862 Jan, [facility] [place] [facility] [address] [id number] [place] [address]- 9733 Jan, [facility] [place] [facility] [address] [id number] [place] [address]- 3414 Jan, [facility] [place] [facility] [address] [id number] [place] [address]- 5283 Jan, [facility] [place] [facility] [address] [id number] [place] [address]- 8986 Jan, [facility] [place] [facility] [address] [facility] [id number] [place] [address]- 1052 Jan, [facility] [place] [facility] [address] [id number] [place] [address]- 8460 Jan, [facility] [place] [facility] [address] [facility] [id number] [place] [address]- 0765 Jan, [facility] [place] [facility] [address] [facility] [id number] [place] [address]- 1200 Jan, [facility] [place] [facility] [address] [facility] [id number] [place] [address]- 5332 Jan, [facility] [place] [facility] [address] [id number], [place] [address]- 5987 Jan, [facility] [place] [facility] [address] [id number] [place] [address] Jan, [facility] [place] [facility] [address] [facility] [id number] [place] [address] Dec, [facility] [place] [facility] [address] [id number] [place] [address] Dec, [facility] [place] [facility] [address] [id number] [place] [address] 16 Dec, 2011 [facility] [place] [facility] [address] [id number] [place] [address]67 16 Dec, 2011 [facility] [place] [facility] [address] [id number] [place] [address] Dec, [facility] [place] [facility] [address] [id number] [place] [address] Dec, [facility] [place] [facility] [address] [id number] [place] [address] Dec, [facility] [place] [facility] [address] [id number] [place] [address] Dec, [facility] [place] [facility] [address] [id number] [place] [address] Dec, [facility] [place] [facility] [address] [id number] [place] [address]240 Dec, [facility] [place] [facility] [address] [id number] [place] [address] 18 Nov, 2011 [facility] [place] [facility] [address] [id number] [place] [address] 9967 13 Nov, 2011 [facility] [place] [facility] [address] [id number] [place] [address] 2382 24 Oct, 2011 [facility] [place] [facility] [address] [id number] [place] [address] Oct, [facility] [place] [facility] [address] [id number] [place] [address] 1716 Oct, [facility] [place] [facility] [address] [id number] [place] [address] 2848 16 Oct, 2011 [facility] [place] [facility] [address] [id number] [place] [address]200 15 Oct, 2011 [facility] [place] [facility] [address] [id number] [place] [address]46 Oct, [facility] [place] [facility] [address] [id number] [place] [address] Oct, [facility] [place] [facility] [address] [id number] [place] [address] Sep, [facility] [place] [facility] [address] [id number] [place] [address]98 Aug, [facility] [place] [facility] [address] [id number] [place] [address] 5383 Aug, [facility] [place] [facility] [address] [id number] [place] [address] Aug, [facility] [place] [facility] [address] [id number] [place] [address] 16[address] Aug, [facility] [place] [facility] [address] [id number] [place] [address] 7094 Aug, [facility] [place] [facility] [address] [id number] [place] [address]006 July, [facility] [place] [facility] [address] [id number] [place] [address] 69[address] July, [facility] [place] [facility] [address] [id number] [place] [address]405 July, [facility] [place] [facility] [address] [id number] [place] [address] 2381 Jun, [facility] [place] [facility] [address] [id number] [place] [address] 37[address] Jun, [facility] [place] [facility] [address] [id number] [place] [address] 7672 Jun, [facility] [place] [facility] [address] [id number] [place] [address] 6405 Jun, [facility] [place] [facility] [address] [id number] [place] [address] 9704 May, [facility] [place] [facility] [address] [id number] [place] [address] 30 May, 2011 [facility] [address] [id number] [place] [address] 5186 29 May, 2011 [facility] [address] [id number] [place] [address]226 28 May, 2011 [facility] [address] [id number] [place] [address]176 23 May, 2011 [facility] [address] [id number] [place] [address]707 22 May, 2011 [facility] [address] [id number] [place] [address] 9570 21 May, 2011 [facility] [address] [id number] [place] [address] 8996 19 May, 2011 [facility] [address] [id number] [place] [address]- 4568 08 May, 2011 [facility] [address] [id number] [place] [address]- [address]92 05 May, 2011 [facility] [address] [id number] [place] [address] 7979 02 May, 2011 [facility] [address] [id number] [place] [address]166 May, [facility] [address] [id number] [place] [address] 6747 Mar, [facility] [address] [id number] [place] [address] 7626 Mar, [facility] [address] [id number] [place] [address] 9976 Feb, [facility] [place] [facility] [address] [id number] [place] [address] 2546 Feb, [facility] [address] [id number] [place] [address] Feb, [facility] [place] [facility] [address] [id number] [place] [address] 6847 15 Feb, 2011 [facility] [place] [facility] [address] [id number] [place] [address] 5529 Feb, [facility] [place] [facility] [address] [id number] [place] [address] 3315 Feb, [facility] [place] [facility] [address] [id number] [place] [address] 0805 Feb, [facility] [place] [facility] [address] [id number] [place] [address] 5859 Jan, [facility] [place] [facility] [address] [id number] [place] [address]- 8381 Jan, [facility] [place] [facility] [address] [id number] [place] [address] 5618 Jan, [facility] [place] [facility] [address] [id number] [place] [address] 7844 Jan, [facility] [place] [facility] [address] [id number] [place] [address] 6181 Jan, [facility] [place] [facility] [address] [id number], [place] [address] 49[address] Jan, [facility] [place] [facility] [address] [id number], [place] [address] 7251 Dec, [facility] [place] [facility] [address] [id number], [place] [address] 5154 Dec, [facility] [place] [facility] [address] [id number], [place] [address] 7101 Dec, [facility] [place] [facility] [address] [id number], [place] [address] 9439 July, [facility] [place] [facility] [address] [id number], [place] [address] 4216 July, [facility] [place] [facility] [address] [id number], [place] [address] 3067 08 Feb, 2010 [facility] [place] [facility] [address] [id number], [place] [address] 0111 18 Jan, 2010 [facility] [place] [facility] [address] [address] [facility] [id number], [place] [address]- 9282 25 Dec, 2009 [facility] [place] [facility] [address] [facility] [id number], [place] [address]- 7524 12 Dec, 2009 [facility] [place] [facility] [address] [facility] [id number] [place] [address]- 4442 15 Sep, 2009 [facility] [place] [facility] [address] [facility] [id number] [place] [address]- 2781 Aug, [facility] [place] [facility] [address] [facility] [id number], [place] [address]- 7844 Jun, [facility] [place] [facility] [id number] [place] [address]- 8176 Jun, [facility] [place] [facility] [address] [address] [facility] [id number], [place] [address]- 1526 Jan, [facility] [place] [facility] [address] [id number], [place] [address] 3968 Jan, [facility] [place] [facility] [address] [id number], [place] [address] 9511 05 Jan, 2009 [facility] [place] [facility] [address] [address] [facility] [id number], [place] [address]- 5260 04 Jan, 2009 [facility] [place] [facility] [address] [facility] [id number], [place] [address]- 9009 29 Dec, 2008 [facility] [place] [facility] [address] [address] [facility] [id number], [place] [address]- 6366 26 Dec, 2008 [facility] [place] [facility] [address] [facility] [id number], [place] [address]- 0759 15 Dec, 2008 [facility] [place] [facility] [address] [facility] [id number], [place] [address]- 5961 17 Nov, 2008 [facility] [place] [facility] [address] [facility] [id number], [place] [address]- 2290 July, [facility] [address] [facility] [id number], [place] [address]- 8876 May, [facility] [address] [facility] [id number], [place] [address]- 2136 Apr, [place] [address] [facility] [facility] [id number], [place] [address]- 9656 Feb, [place] [address] [address] [facility] [id number], [place] [address]47 Dec, IMMUNIZATIONS Vaccine Route Administration Date Status FLUARIX QUAD (3 AND UP) 2017 IM Intramuscular Jan 18, 2017 Administered SOCIAL HISTORY Never Assessed REASON FOR VISIT Diabetes--Donna Vicente MA PLAN OF CARE Activity Details Follow Up 3 Months Reason:DM VITAL SIGNS Height 64 in 2017-01-18 Weight 186.7 lbs 2017-01-18 Temperature 98.0 degrees Fahrenheit 2017-01-18 Heart Rate 104 bpm 2017-01-18 Respiratory Rate 20 2017-01-18 BMI 32.04 kg/m2 2017-01-18 Blood pressure systolic 136 mmHg 2017-01-18 Blood pressure diastolic 86 mmHg 2017-01-18 MEDICATIONS Medication Instructions Dosage Frequency Start Date End Date Duration Status Test strips Contour test strips 2 times a day test blood sugar 12h Aug, Active Ativan 0.5 MG Orally Once a day, no early refills 1 tablet as needed Sep, Active Celexa 40 MG Orally Once a day 1 tablet 24h May, Active Victoza 18 MG/3ML Subcutaneous Once a day inject 0.3 ml 24h 90 days Active Actos 45 MG Orally Once a day #60 samples 1 tablet Apr, Active NovoLog Mix 70/30 Flexpen (70-30) 100 UNIT/ML Subcutaneous 2 times a day Inject 110 12h Active Lamictal 25 MG Orally Once a day 1 tablet at night for 2 weeks then take 2 everynight for 2 weeks 24h May, 28 days Active Farxiga 10 MG Orally Once a day 1 tablet 24h Apr, Active Amaryl 4 MG Orally Once a day in AM 1 tablet with breakfast or the first main meal of the day Sep, 30 day(s) Active Tizanidine HCl 4 MG Orally Once a day 1 tablet as needed at bedtime 24h July, 30 days Active Aspirin Adult Low Strength 81 MG Orally Once a day 1 tablet 24h Active Toprol XL 25 mg take 1 tablet by Oral route 1 time per day take at hs 10 May, 2013 Active RESULTS Name Result Date Reference Range A1C (IN HOUSE) 2017-01-18 A1C IN HOUSE 11.1 4.3 - 5.6 % Previous A1c 11.3 Lot [id number] Exp date 09/2018 PROCEDURES Procedure Date Ordered Result Body Site GLYCATED HEMOGLOBIN TEST Jan 18, 2017 SINGLE IMMUNIZATION ADMIN Jan 18, 2017 FLUARIX QUAD (3 AND UP) 2016Jan 18, 2017 INSTRUCTIONS MEDICATIONS ADMINISTERED No Known Medications [...]
--- OUTSIDE RECORDS SUMMARY | 2018-06-14 14:56 | XMS REPORT ---
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 Role Phone DOMINICKHUGO BENJAMINA Unavailable PROBLEMS Type Condition ICD9-CM Code [id number] Code Onset Dates Condition Status SNOMED Code Problem Diabetes E11.9 Active 815340123 Problem Lumbar radiculopathy M54.16 Active 984140188 Problem Irritable bowel syndrome with diarrhea K58.0 Active 509410534 Problem New daily persistent headache G44.52 Active 052266472 Problem Acute bilateral low back pain with right-sided sciatica M54.41 Active 519446727 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 Z79.891 Active 764395961 Problem Bipolar 1 disorder F31.9 Active 982938030 Problem Hyperlipidemia, unspecified E78.5 Active 72761678 Problem Type 2 diabetes mellitus with complication E11.8 Active 261185765 Problem Post laminectomy syndrome M96.1 Active 50405609 Problem Eye exam normal Z01.00 Active 752497690 Problem Bipolar disorder, in partial remission, most recent episode manic F31.73 Active 09650167 Problem Extreme poverty Z59.5 Active 85569732 Problem Obesity, unspecified 278.00 Active 018284468 Problem 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 Active 16039775 Problem Hyperlipidemia 272.4 Active 24989073 Problem Non compliance with medical treatment Z91.19 Active 3969789 ALLERGIES No Information ENCOUNTERS Encounter Location Date Diagnosis [facility] [address], [place] [address] Aug, [facility] [address], [place] [address] Aug, [facility] [id number], [place] [address] Aug, [facility] [id number] [place] [address] 13256- 9462 July, Type 2 diabetes mellitus with complication E11.8 [place] [id number] [place] [address] 91133- 7340 July, Bipolar 1 disorder F31.9 ; 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 and Extreme poverty Z59.5 [place] [id number] [place] [address] 86501- 9385 Jun, Bipolar 1 disorder F31.9 ; 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 and Extreme poverty Z59.5 [place] [id number] [place] [address] 18285- 1986 Jun, Bipolar 1 disorder F31.9 ; 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 and Extreme poverty Z59.5 [place] [id number] [place] [address] 48005- 1571 Jun, Bipolar 1 disorder F31.9 ; 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 and Extreme poverty Z59.5 [place] [id number] [place] [address] 58906- 4832 May, Urinary tract infection without hematuria, site unspecified N39.0 [place] [id number] [place] [address] 87607- 8362 May, Bipolar 1 disorder F31.9 ; 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 and Extreme poverty Z59.5 [place] [id number] [place] [address] 66736- 1735 Apr, Diabetes E11.9 and Breast cancer screening Z12.31 [place] [address] [place] [address] 75686- 9957 Apr, Bipolar 1 disorder F31.9 and 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 [place] [address] [place] [address] 39908- 0569 Mar, Bipolar 1 disorder F31.9 ; 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 and Extreme poverty Z59.5 [place] [id number] [place] [address] 29405- 6583 Mar, New daily persistent headache G44.52 ; Leg pain 729.5 and History of carpal tunnel release Z98.890 [place] [id number] [place] [address] 58085- 2034 Mar, Hyperlipidemia, unspecified E78.5 [place] [address] 82133- 7948 Mar, Bipolar 1 disorder F31.9 ; 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 and Extreme poverty Z59.[address] 258705- 8887 Feb, Bipolar 1 disorder F31.9 ; 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 and Extreme poverty Z59.[address] 79025- 0038 Feb, Diabetes E11.9 [place] [address] 48491- 1417 Feb, Viral syndrome B34.[address] 72307- 8185 Jan, Other viral agents as the cause of diseases classified elsewhere B97.89 and Acute upper respiratory infection, unspecified J06.9 [id number] [place] [address] 49175- 2888 Jan, Bipolar 1 disorder F31.9 and 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 [place] [id number] [place] [address] 42689- 6374 Jan, Bipolar 1 disorder F31.9 ; 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 and Extreme poverty Z59.5 [place] [id number] [place] [address] 50966- 8299 Dec, Diabetes E11.[address] 45947- 6172 Dec, Diabetes E11.9 and Encounter for immunization Z23 [facility] [id number] [place] [address] 85185- 5781 Dec, Bipolar 1 disorder F31.9 ; 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 and Extreme poverty Z59.5 [facility] [id number] [place] [address] 75348- 2212 Dec, Back pain M54.9 [facility] [id number] [place] [address] 20840- 2522 Nov, [facility] [id number] [place] [address] 23540- 4885 Nov, Bipolar 1 disorder F31.9 ; 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 and Extreme poverty Z59.5 [place] [id number] [place] [address] 52888- 3027 Nov, Bipolar 1 disorder F31.9 ; 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 and Extreme poverty Z59.5 [facility] [id number] [place] [address] 01469- 3570 Oct, 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 and Bipolar 1 disorder F31.9 [place] [id number] [place] [address] 21242- 1026 Oct, Bipolar 1 disorder F31.9 ; 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 and Extreme poverty Z59.5 [place] [id number] [place] [address] 06067- 5896 Oct, Back pain M54.9 [facility] [id number] [place] [address] 00535- 3093 Oct, 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 and Type 2 diabetes mellitus with complication E11.8 [facility] [id number] [place] [address] 38815- 1065 Sep, Bipolar 1 disorder F31.9 ; 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 and Extreme poverty Z59.5 [place] [id number] [place] [address] 54231- 6939 Sep, 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 and Bipolar 1 disorder F31.9 [facility] [id number] [place] [address] 33731- 9492 Sep, Bipolar 1 disorder F31.9 ; 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 and Extreme poverty Z59.5 [place] [id number] [place] [address] 64445- 2023 Aug, Diabetes E11.9 ; Hyperlipidemia, unspecified E78.5 and Lumbar radiculopathy M54.16 [place] [id number] [place] [address] 32229- 3689 Aug, Bipolar 1 disorder F31.9 ; 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 and Extreme poverty Z59.5 [place] [id number] [place] [address] 53909- 0683 Aug, [place] [id number] [place] [address] 46997- 0553 Aug, [facility] [id number] [place] [address] 20274- 6669 Aug, [place] [id number] [place] [address] 03051- 5162 July, [place] [id number] [place] [address] 71068- 5254 July, Acute bilateral low back pain with right-sided sciatica M54.41 [facility] [id number] [place] [address] 07951- 2255 July, Bipolar 1 disorder F31.9 ; 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 and Extreme poverty Z59.5 [facility] [id number] [place] [address] 95977- 4087 July, Back pain M54.9 and Diabetes E11.9 [facility] [id number] [place] [address] 98221- 0568 Jun, Bipolar 1 disorder F31.9 ; 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 and Extreme poverty Z59.5 [place] [id number] [place] [address] 71028- 6789 Jun, Bipolar 1 disorder F31.9 ; 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 and Extreme poverty Z59.5 [place] [id number] [place] [address] 43054- 8924 May, Visit for pelvic exam Z01.419 ; Acute vaginitis N76.0 and Diabetes E11.9 [place] [id number] [place] [address] 40971- 7329 May, Bipolar 1 disorder F31.9 ; 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 and Extreme poverty Z59.5 [place] [id number] [place] [address] 75176- 6212 May, [place] [address] 18620- 0674 May, [place] [id number] [place] [address] 56027- 2548 May, Bipolar 1 disorder F31.9 ; 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 and Extreme poverty Z59.5 [place] [id number] [place] [address] 79754- 9818 May, Hyperlipidemia, unspecified E78.5 [place] [id number] [place] [address] 09098- 7447 Apr, Breast cancer screening Z12.39 [place] [id number] [place] [address] 44925- 6383 Mar, [place] [id number] [place] [address] 43169- 7396 Mar, Bipolar disorder, current episode mixed, unspecified F31.60 [place] [address] [place] [address] 81800- 7745 Mar, Bipolar 1 disorder F31.9 ; 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 and Extreme poverty Z59.5 [place] [id number] [place] [address] 99256- 6734 30 Feb, 2016 Acute nasopharyngitis J00 [place] [id number] [place] [address] 43377- 7366 27 Feb, 2016 Dental examination Z01.20 [place] [id number] [place] [address] 87623- 4411 21 Feb, 2016 Dental cavities K02.9 and Chronic periodontitis, unspecified K05.30 [place] [id number] [place] [address] 90860- 2519 13 Feb, 2016 Low back pain M54.5 and Extreme poverty Z59.5 [place] [id number] [place] [address] 14881- 8708 08 Feb, 2016 [place] [address] 33293- 3170 05 Feb, 2016 Routine gynecological examination V72.31 ; Breast cancer screening Z12.39 and Herpes simplex type 1 infection B00.9 [place] [id number] [place] [address] 69474- 8709 02 Feb, 2016 Diabetes E11.9 [place] [id number] [place] [address] 54179- 6752 Feb, Encounter for dental examination and cleaning without abnormal findings Z01.20 [place] [id number] [place] [address] 10316- 3238 Jan, Hyperlipidemia, unspecified E78.5 [place] [id number] [place] [address] 92702- 0079 Jan, Bipolar 1 disorder F31.9 ; 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60 and 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 [place] [id number] [place] [address] 82015- 9472 16 Nov, 2015 Bipolar 1 disorder F31.9 ; 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 ; Extreme poverty Z59.5 and Non compliance with medical treatment Z91.19 [place] [id number] [place] [address] 71666- 8506 Oct, [place] [address] 23762- 2211 Oct, Dental caries K02.9 [place] [address] 54167- 8470 Oct, Low back pain M54.5 and Other chronic pain G89.29 [place] [id number] [place] [address] 75209- 2815 Oct, Bipolar 1 disorder F31.9 ; 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 ; Extreme poverty Z59.5 and Non compliance with medical treatment Z91.19 [place] [id number] [place] [address] 55564- 7017 Oct, [place] [address] 83208- 5901 Oct, [place] [id number] [place] [address] 45290- 0534 Oct, Dental examination Z01.20 [address] [address] 42921- 3587 Oct, Bipolar 1 disorder F31.9 ; 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 ; Extreme poverty Z59.5 and Non compliance with medical treatment Z91.19 [address] [address] [place] [address] 05870- 8377 Oct, [place] [id number] [place] [address] 59723- 0856 Sep, Type 2 diabetes mellitus with complication E11.8 [place] [id number] [place] [address] 10317- 5814 Sep, Bipolar disorder, current episode mixed, unspecified F31.60 [place] [id number] [place] [address] 37923- 0406 Sep, Bipolar disorder, current episode mixed, unspecified F31.60 [place] [id number] [place] [address] 99564- 9359 Sep, Bipolar disorder, in partial remission, most recent episode manic F31.73 ; 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 ; Extreme poverty Z59.5 and Non compliance with medical treatment Z91.19 [address] [place] [place] [address] 43739- 3558 Aug, Bipolar disorder, in partial remission, most recent episode manic F31.73 ; 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 ; Extreme poverty Z59.5 and Non compliance with medical treatment Z91.19 [place] [address] [place] [address] 20247- 5402 Aug, Bipolar disorder, in partial remission, most recent episode manic F31.73 ; 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 ; Extreme poverty Z59.5 and Non compliance with medical treatment Z91.19 [address] [address] [place] [address] 66480- 1699 Aug, [place] [address] [place] [address] 98905- 4123 July, Bipolar disorder, in partial remission, most recent episode manic F31.73 ; 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 ; Extreme poverty Z59.5 and Non compliance with medical treatment Z91.19 [place] [id number] [place] [address] 47380- 5233 July, Bipolar disorder, current episode mixed, unspecified F31.60 [place] [id number] [place] [address] 03982- 9454 July, Bipolar disorder, in partial remission, most recent episode manic F31.73 ; 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 ; Extreme poverty Z59.5 and Non compliance with medical treatment Z91.19 [place] [id number] [place] [address] 64026- 1122 July, 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 and Chronic pain G89.29 [place] [id number] [place] [address] 51137- 4574 Jun, 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 and Bipolar 1 disorder F31.9 [place] [id number] [place] [address] 26026- 8134 Jun, [place] [id number] [place] [address] 24194- 9008 Jun, [place] [id number] [place] [address] 07620- 5260 Jun, [place] [id number] [place] [address] 24313- 7248 Jun, Bipolar disorder, in partial remission, most recent episode manic F31.73 ; 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 and Non compliance with medical treatment Z91.19 [place] [id number] [place] [address] 07929- 4650 May, Bipolar disorder, in partial remission, most recent episode manic F31.73 ; 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 and Non compliance with medical treatment Z91.19 [place] [id number] [place] [address] 18561- 4369 May, Bipolar disorder, in partial remission, most recent episode manic F31.73 [place] [id number] [place] [address] 99882- 1308 May, Diabetes E11.9 and Chronic pain G89.29 [place] [id number] [place] [address] 23010- 1837 May, [place] [id number] [place] [address] 55831- 9728 May, Bipolar disorder, in partial remission, most recent episode manic F31.73 ; Non compliance with medical treatment Z91.19 and 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 [place] [id number] [place] [address] 07095- 5662 May, Type 2 diabetes mellitus with complication E11.8 and Back pain M54.9 [place] [id number] [place] [address] 30046- 3166 May, Bipolar disorder, in partial remission, most recent episode manic F31.73 and 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 [place] [id number] [place] [address] 76937- 8553 Apr, [place] [id number] [place] [address] 39847- 2288 Apr, [place] [id number] [place] [address] 06197- 3085 Apr, [place] [id number] [place] [address] 77948- 0736 Apr, Diabetes E11.9 ; Irritable bowel syndrome with diarrhea K58.0 and Lumbar radiculopathy M54.16 [place] [id number] [place] [address] 79086- 6581 Apr, Breast screening Z12.39 [place] [id number] [place] [address] 14553- 4534 Apr, Bipolar disorder, in partial remission, most recent episode manic F31.73 ; Non compliance with medical treatment Z91.19 and 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 [place] [id number] [place] [address] 32345- 0951 Mar, Edema, unspecified type R60.9 and Type 2 diabetes mellitus with complication E11.8 [place] [address]- 8489 Mar, Bipolar disorder, in partial remission, most recent episode manic F31.73 ; Non compliance with medical treatment Z91.19 ; 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 and Extreme poverty Z59.5 [place] [id number] [place] [address] 00210- 5155 Mar, Bipolar disorder, current episode mixed, unspecified F31.60 ; 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 ; Extreme poverty Z59.5 and Generalized anxiety disorder F41.[address] 74174- 8919 Mar, Bipolar disorder, in partial remission, most recent episode manic F31.73 ; 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 and Extreme poverty Z59.5 [place] [address] 17375- 5728 Feb, Bipolar disorder, in partial remission, most recent episode manic F31.73 ; 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 and Extreme poverty Z59.5 [place] [id number] [place] [address] 87371- 9456 Feb, Bipolar disorder, in partial remission, most recent episode manic F31.73 ; 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 and Extreme poverty Z59.5 [place] [address] 75891- 7525 Feb, [place] [id number] [place] [address] 74458- 3483 Jan, Type 2 diabetes mellitus with complication E11.8 and Petechiae R23.[id number] [place] [address] 96546- 1130 Jan, Type 2 diabetes mellitus with complication E11.8 ; Edema, unspecified R60.9 ; Petechiae R23.3 and Diabetes E11.9 [place] [id number] [place] [address] 35591- 5261 Jan, Bipolar disorder, in partial remission, most recent episode manic F31.73 ; 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 and Extreme poverty Z59.5 [place] [id number] [place] [address] 88006- 5981 Jan, Bipolar disorder, in partial remission, most recent episode manic F31.73 ; 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 and Extreme poverty Z59.5 [place] [id number] [place] [address] 68185- 0543 Dec, Bipolar disorder, in partial remission, most recent episode manic F31.73 [place] [address] 49689- 7862 Dec, Edema, due to unspecified malnutrition type, unspecified edema R60.9 and Essential hypertension I10 [place] [id number] [place] [address] 22018- 2225 Dec, Bipolar disorder, in partial remission, most recent episode manic F31.73 [place] [id number] [place] [address] 97845- 0126 Nov, Bipolar I disorder, most recent episode (or current) mixed, unspecified 296.60 [place] [id number] [place] [address] 61229- 4925 24 Nov, 2014 Stress incontinence, female 625.6 ; Back pain 724.5 and Leg pain 729.5 [place] [id number] [place] [address] 75615- 5072 18 Nov, 2014 Generalized anxiety disorder 300.02 and Bipolar II disorder 296.[address] 30926- 9942 Nov, Bipolar I disorder, most recent episode (or current) mixed, unspecified 296.60 [facility] [address] [place] [address]- 0788 Oct, [facility] [address] [place] [address]- 7312 Oct, [facility] [id number] [place] [address] 85471- 1348 Oct, [facility] [address] [place] [address]- 4705 Oct, Bipolar I disorder, most recent episode (or current) mixed, unspecified 296.60 [facility] [address] [address]- 3875 Sep, Diabetes 250.00 [facility] [id number] [address]- 2362 Sep, Bipolar I disorder, most recent episode (or current) mixed, unspecified 296.60 [facility] [address] [place] [address]- 7553 Sep, [facility] [address] [place] [address]- 9471 Sep, [facility] [address] [place] [address]- 5496 Sep, Bipolar I disorder, most recent episode (or current) mixed, unspecified 296.60 [facility] [address] [place] [address]- 6659 Sep, Bipolar I disorder, most recent episode (or current) mixed, unspecified 296.60 [facility] [address] 4609 Sep, [facility] [address] 0839 Sep, Anxiety 300.00 ; Diabetes 250.00 and Hyperlipidemia 272.4 [facility] [place] [facility] [id number], [place] [address] Aug, [facility] [id number] [place] [address]73- 9368 Aug, [facility] [id number], [place] [address] 0789 Aug, [facility] [id number] [place] [address] 07844- 7415 Aug, Bipolar I disorder, most recent episode (or current) mixed, unspecified 296.60 [facility] [id number] [place] [address] 11084- 8631 Aug, Generalized anxiety disorder 300.02 and Bipolar II disorder 296.89 [facility] [id number] [place] [address] 87389- 7506 July, Bipolar I disorder, most recent episode (or current) mixed, unspecified 296.60 [facility] [id number], [place] [address] 3535 July, Cough 786.2 [facility] [id number] [place] [address] 93800- 5821 July, Bipolar I disorder, most recent episode (or current) mixed, unspecified 296.60 [facility] [id number], [place] [address] 5[address] Jun, Diabetes 250.00 [facility] [id number], [place] [address]- 1765 14 Jun, 2014 [facility] [id number], [place] [address]- 3745 Jun, [facility] [id number], [place] [address]- 8337 May, [facility] [id number], [place] [address]- 6809 May, [facility] [place] [facility] [address] [id number] [place] [address]- 6762 10 May, 2014 [facility] [place] [facility] [address] [id number] [place] [address]- 4646 10 May, 2014 [facility] [place] [facility] [address] [id number] [place] [address]- 2397 10 May, 2014 [facility] [place] [facility] [address] [id number] [place] [address]- 0192 10 May, 2014 [facility] [place] [facility] [address] [id number] [place] [address]- 9042 Apr, 2014 [facility] [place] [facility] [address] [id number] [place] [address]- 7941 Apr, 2014 [facility] [place] [facility] [address] [facility] [place] [id number] [place] [address]- 0674 Apr, 2014 [facility] [place] [facility] [address] [facility] [place] [id number] [place] [address]- 4197 Apr, 2014 [facility] [place] [facility] [address] [facility] [place] [id number] [place] [address]- 2874 Apr, [facility] [place] [facility] [address] [facility] [place] [id number] [place] [address]- 7124 Apr, 2014 [facility] [place] [facility] [address] [facility] [place] [id number] [place] [address]- 1766 Apr, [facility] [place] [facility] [address] [facility] [place] [id number] [place] [address]- 5478 Apr, [facility] [place] [facility] [address] [id number] [place] [address]- 2460 Mar, [facility] [place] [facility] [address] [id number] [place] [address]- 6150 Mar, [facility] [place] [facility] [address] [facility] [place] [id number] [place] [address]- 9116 Mar, [facility] [place] [facility] [address] [id number], [place] [address]- 8780 Mar, [facility] [address] [id number] [place] [address]- 9087 Mar, [facility] [place] [facility] [address] [id number] [place] [address]- 5866 Mar, [facility] [address] [id number] [place] [address]- 0243 Mar, [facility] [place] [facility] [address] [id number] [place] [address]- 5843 Mar, [facility] [address] [id number] [place] [address]- 6204 Feb, [facility] [place] [facility] [address] [id number] [place] [address]- 7165 Feb, [facility] [address] [id number] [place] [address]- 9928 Feb, [facility] [place] [facility] [address] [id number] [place] [address]- 8727 Feb, [facility] [place] [facility] [address] [id number] [place] [address]- 7058 Feb, [facility] [place] [facility] [address] [facility] [place] [id number] [place] [address]- 7282 Feb, [facility] [place] [facility] [address] [id number] [place] [address]- 2858 Feb, [facility] [place] [facility] [address] [id number] [place] [address]- 1618 Feb, [facility] [place] [facility] [address] [id number] [place] [address]- 3763 Feb, [facility] [place] [facility] [address] [id number] [place] [address]- 8044 Feb, [facility] [place] [facility] [address] [id number] [place] [address]- 3815 Jan, [facility] [place] [facility] [address] [id number] [place] [address]- 5967 Jan, [facility] [place] [facility] [address] [id number] [place] [address]- 8888 Jan, [facility] [place] [facility] [address] [id number] [place] [address]- 1596 Jan, [facility] [place] [facility] [address] [id number] [place] [address]- 9219 Jan, [facility] [place] [facility] [address] [id number] [place] [address]- 6277 Jan, [facility] [place] [facility] [address] [id number] [place] [address]- 5995 Jan, [facility] [place] [facility] [address] [id number] [place] [address]- 0501 Jan, [facility] [place] [facility] [address] [id number] [place] [address]- 0602 Jan, [facility] [place] [facility] [address] [id number] [place] [address]- 8906 Jan, [facility] [place] [facility] [address] [id number] [place] [address]- 2355 Jan, [facility] [place] [facility] [address] [id number] [place] [address]- 1976 Jan, [facility] [place] [facility] [address] [id number] [place] [address]- 5997 Jan, [facility] [place] [facility] [address] [id number] [place] [address]- 3978 Jan, [facility] [place] [facility] [address] [id number] [place] [address]- 9721 Jan, [facility] [place] [facility] [address] [id number] [place] [address]- 4064 Dec, [facility] [place] [facility] [address] [id number] [place] [address]- 7442 Dec, [facility] [place] [facility] [address] [id number] [place] [address]- 5172 Dec, [facility] [place] [facility] [address] [id number] [place] [address]- 2358 Dec, [facility] [place] [facility] [address] [id number] [place] [address]- 6771 Dec, [facility] [place] [facility] [address] [id number] [place] [address]- 4805 Dec, [facility] [place] [facility] [address] [id number] [place] [address]- 0907 Dec, [facility] [place] [facility] [address] [id number] [place] [address]- 9875 Dec, [facility] [place] [facility] [address] [id number] [place] [address]- 6520 25 Nov, 2013 [facility] [place] [facility] [address] [id number] [place] [address]- 9611 25 Sep, 2013 [facility] [place] [facility] [address] [id number] [place] [address]- 0060 10 Sep, 2013 [facility] [place] [facility] [address] [id number] [place] [address]- 1344 10 Sep, 2013 [facility] [place] [facility] [address] [id number], [place] [address]- 6829 08 Sep, 2013 [facility] [place] [facility] [address] [id number], [place] [address]- 7042 08 Sep, 2013 [facility] [place] [facility] [address] [id number] [place] [address]- 2375 08 Sep, 2013 [facility] [place] [facility] [address] [id number], [place] [address]- 3238 08 Sep, 2013 [facility] [place] [facility] [address] [id number], [place] [address]- 6714 08 Sep, 2013 [facility] [place] [facility] [address] [id number] [place] [address]- 7014 08 Nov, 2013 [facility] [place] [facility] [address] [id number] [place] [address]- 3836 04 Nov, 2013 [facility] [place] [facility] [address] [id number] [place] [address]- 6916 04 Nov, 2013 [facility] [place] [facility] [address] [id number] [place] [address]- 6130 03 Nov, 2013 [facility] [place] [facility] [address] [id number] [place] [address]- 8138 02 Nov, 2013 [facility] [place] [facility] [address] [id number] [place] [address]- 4767 Nov, [facility] [place] [facility] [address] [id number] [place] [address]- 4343 Oct, [facility] [place] [facility] [address] [id number] [place] [address]- 2330 Oct, [facility] [place] [facility] [address] [id number] [place] [address]- 7418 Oct, [facility] [place] [facility] [address] [id number] [place] [address]- 2387 Oct, [facility] [place] [facility] [address] [id number] [place] [address]- 7568 Oct, [facility] [place] [facility] [address] [id number] [place] [address]- 1765 Oct, [facility] [place] [facility] [address] [id number] [place] [address]- 2541 Oct, [facility] [place] [facility] [address] [id number] [place] [address]- 4794 Oct, [facility] [place] [facility] [address] [id number] [place] [address]- 7981 Oct, [facility] [place] [facility] [address] [id number] [place] [address]- 4465 Oct, [facility] [place] [facility] [address] [id number] [place] [address]- 4545 Oct, [facility] [place] [facility] [address] [id number] [place] [address]- 1190 Oct, [facility] [place] [facility] [address] [id number] [place] [address]- 6250 Oct, [facility] [place] [facility] [address] [id number] [place] [address]- 4901 Oct, [facility] [place] [facility] [address] [id number] [place] [address]- 9349 Sep, [facility] [place] [facility] [address] [id number] [place] [address]- 9263 Sep, [facility] [place] [facility] [address] [id number] [place] [address]- 5787 Sep, [facility] [place] [facility] [address] [id number] [place] [address]- 4193 Sep, [facility] [place] [facility] [address] [id number] [place] [address]- 9994 Sep, [facility] [place] [facility] [address] [id number] [place] [address]- 0087 Sep, [facility] [place] [facility] [address] [id number] [place] [address]- 8091 Sep, [facility] [place] [facility] [address] [id number] [place] [address]- 7993 Sep, [facility] [place] [facility] [address] [id number] [place] [address]- 2219 Aug, [facility] [place] [facility] [address] [id number] [place] [address]- 6471 Aug, [facility] [place] [facility] [address] [id number] [place] [address]- 1340 Aug, [facility] [place] [facility] [address] [id number] [place] [address]- 2376 Aug, [facility] [place] [facility] [address] [id number] [place] [address]- 9943 Aug, [facility] [place] [facility] [address] [id number] [place] [address]- 0956 Aug, [facility] [place] [facility] [address] [id number] [place] [address]- 7378 Aug, [facility] [place] [facility] [address] [id number] [place] [address]- 2525 Aug, [facility] [place] [facility] [address] [id number] [place] [address]- 7170 July, [facility] [place] [facility] [address] [id number] [place] [address]- 3369 July, [facility] [place] [facility] [address] [id number] [place] [address]- 6030 July, [facility] [place] [facility] [address] [id number] [place] [address]- 1872 July, [facility] [place] [facility] [address] [id number] [place] [address]- 1419 July, [facility] [place] [facility] [address] [id number] [place] [address]- 0016 July, [facility] [place] [facility] [address] [id number] [place] [address]- 0119 July, [facility] [place] [facility] [address] [id number] [place] [address]- 4129 July, [facility] [place] [facility] [address] [id number] [place] [address]- 2988 Jun, [facility] [place] [facility] [address] [id number] [place] [address]- 8430 Jun, [facility] [place] [facility] [address] [id number] [place] [address]- 3908 Jun, [facility] [place] [facility] [address] [id number] [place] [address]- 8111 Jun, [facility] [address] [id number] [place] [address]- 9605 Jun, [facility] [place] [facility] [address] [id number] [place] [address]506 Jun, [facility] [address] [id number] [place] [address]- 0562 Jun, [facility] [place] [facility] [address] [id number] [place] [address]- 5678 Jun, [facility] [address] [id number] [place] [address]- 5157 Jun, [facility] [address] [id number] [place] [address]- 9116 Jun, [facility] [address] [id number] [place] [address]- 7882 Jun, [facility] [address] [id number] [place] [address]- 9039 Jun, [facility] [address] [id number] [place] [address]- 2812 May, [facility] [address] [id number] [place] [address]- 5664 May, [facility] [place] [facility] [address] [id number] [place] [address]- 2378 May, [facility] [place] [facility] [address] [id number] [place] [address]- 6832 May, [facility] [place] [facility] [address] [id number] [place] [address]- 0186 May, [facility] [place] [facility] [address] [id number] [place] [address]- 3547 May, [facility] [place] [facility] [address] [id number] [place] 3320 May, [facility] [place] [facility] [address] [id number] [place] [address]- 5808 May, [facility] [place] [facility] [address] [id number] [place] [address]- 3798 May, [facility] [place] [facility] [address] [id number] [place] [address]- 1904 May, [facility] [place] [facility] [address] [id number] [place] [address]- 2806 May, [facility] [place] [facility] [address] [id number] [place] [address]- 9107 May, [facility] [place] [facility] [address] [id number] [place] [address]- 3198 May, [facility] [place] [facility] [address] [id number] [place] [address]- 2519 May, [facility] [place] [facility] [address] [id number] [place] [address]- 3836 Apr, [facility] [place] [facility] [address] [id number] [place] [address]- 7437 Apr, [facility] [place] [facility] [address] [id number] [place] [address]- 7780 Apr, [facility] [place] [facility] [address] [id number] [place] [address]- 8189 Apr, [facility] [place] [facility] [address] [id number] [place] [address]- 7293 Apr, [facility] [place] [facility] [address] [id number] [place] [address]- 1554 Apr, [facility] [place] [facility] [address] [id number] [place]178 Mar, [facility] [place] [facility] [address] [id number] [place] [address]- 1671 Mar, [facility] [place] [facility] [address] [id number] [place] [address]- 4264 Mar, [facility] [address] [id number] [place] [address]- 7364 Mar, [facility] [address] [id number] [place] [address]- 3799 Mar, [facility] [address] [id number] [place] [address]- 4906 Mar, [facility] [address] [id number] [place] [address]- 5187 Mar, [facility] [address] [id number] [place] [address]- 7789 Mar, [facility] [address] [id number] [place] [address]- 2426 Mar, [facility] [address] [id number] [place] [address]- 6296 Mar, [facility] [address] [id number] [place] [address]- 8602 Mar, [facility] [address] [id number] [place] [address]- 6758 Mar, [facility] [address] [id number] [place] [address]- 4438 Mar, [facility] [address] [id number] [place] [address]- 3103 Mar, [facility] [address] [id number] [place] [address]- 2027 Feb, [facility] [place] [facility] [address] [id number] [place] [address]- 7915 Feb, [facility] [address] [id number] [place] [address]- 2542 Feb, [facility] [address] [id number] [place] [address]- 0509 Feb, [facility] [place] [facility] [address] [id number] [place] [address]- 3512 Feb, [facility] [place] [facility] [address] [id number] [place] [address]- 4810 Feb, [facility] [place] [facility] [address] [id number] [place] [address]- 1043 Feb, [facility] [place] [facility] [address] [id number] [place] [address]- 5774 Feb, [facility] [address] [id number] [place] [address]- 9782 Feb, [facility] [place] [facility] [address] [id number] [place] 8832 Feb, [facility] [address] [id number] [place] [address]- 9925 Feb, [facility] [address] [id number] [place] [address]- 7212 Feb, [facility] [place] [facility] [address] [id number] [place] [address]- 4305 Feb, [facility] [place] [facility] [address] [id number] [place] [address]- 9780 Feb, [facility] [place] [facility] [address] [facility] [place] [id number] [address]- 4124 Feb, [facility] [place] [facility] [address] [id number], [place] [address]- 0487 Feb, [facility] [place] [facility] [address] [id number], [place] [address]- 4468 Dec, [facility] [place] [facility] [address] [id number], [place] [address]- 4749 Dec, [facility] [place] [facility] [address] [facility] [place] [id number], [place] [address] 16 Dec, 2012 [facility] [place] [facility] [address] [id number], [place] [address] 16 Dec, 2012 [facility] [place] [facility] [address] [id number] [place] [address] 16 Dec, 2012 [facility] [place] [facility] [address] [id number] [place] [address]30 16 Dec, 2012 [facility] [place] [facility] [address] [id number] [place] [address]- [address]99 14 Dec, 2012 [facility] [place] [facility] [address] [id number] [place] [address]- [address] 14 Dec, 2012 [facility] [place] [facility] [address] [id number] [place] [address]- [address]105 10 Dec, 2012 [facility] [place] [facility] [address] [id number] [place] [address] 10 Dec, 2012 [facility] [place] [facility] [address] [id number] [place] [address]- 2218 10 Dec, 2012 [facility] [place] [facility] [address] [id number] [place] [address]- 1668 10 Dec, 2012 [facility] [place] [facility] [address] [id number] [place] [address]- 5824 03 Dec, 2012 [facility] [place] [facility] [address] [id number] [place] [address]124 25 Sep, 2012 [facility] [place] [facility] [address] [id number], [place] [address] 20 Sep, 2012 [facility] [place] [facility] [address] [id number], [place] [address] 18 Sep, 2012 [facility] [place] [facility] [address] [id number] [place] [address]- 6369 16 Sep, 2012 [facility] [place] [facility] [address] [id number] [place] [address]- [address]64 12 Sep, 2012 [facility] [place] [facility] [address] [id number] [place] [address]- 4919 11 Sep, 2012 [facility] [place] [facility] [address] [id number] [place] [address]- 4[address] 05 Nov, 2012 [facility] [address] [id number] [place] [address] Oct, [facility] [place] [facility] [address] [id number] [place] [address] Oct, [facility] [place] [facility] [address] [id number] [place] [address] Sep, [facility] [place] [facility] [address] [id number] [place] [address]- [address]262 Sep, [facility] [place] [facility] [address] [id number] [place] [address] 244[address] Sep, [facility] [place] [facility] [address] [id number] [place] [address] 2817 Sep, [facility] [place] [facility] [address] [id number] [place] [address]- 0672 Sep, [facility] [place] [facility] [address] [id number] [place] [address]- 1070 Sep, [facility] [place] [facility] [address] [id number] [place] [address]- [address] Sep, [facility] [place] [facility] [address] [id number] [place] [address] 0798 Aug, [facility] [place] [facility] [address] [id number] [place] [address] 6701 Aug, [facility] [place] [facility] [address] [id number] [place] [address]- 0716 16 Aug, 2012 [facility] [place] [facility] [address] [id number] [place] [address]- 2542 Aug, [facility] [place] [facility] [address] [id number] [place] [address]- 2546 Aug, [facility] [place] [facility] [address] [id number] [place] [address] 9624 Aug, [facility] [address] [id number] [place] [address]- 9763 Aug, [facility] [address] [id number] [place] [address]- 5969 Aug, [facility] [address] [id number] [place] [address] 9338 July, [facility] [address] [id number] [place] [address]- 4904 July, [facility] [address] [id number] [place] [address]- 8536 July, [facility] [address] [id number] [place] [id number] July, [facility] [address] [id number] [place] [address]- [address]167 July, [facility] [address] [id number], [place] [address] Jun, [facility] [address] [id number] [place] [address]- 6860 May, [facility] [address] [id number] [place] [address]- 5444 May, [facility] [address] [id number] [place] [address]- 7970 May, [facility] [place] [facility] [address] [id number], [place] [address]- [address] Apr, [facility] [address] [id number] [place] [address]- 2946 Apr, [facility] [place] [facility] [address] [id number] [place] [address]- 4596 Apr, [facility] [place] [facility] [address] [id number] [place] [address]- 1039 Mar, [facility] [address] [id number] [place] [address]- 5223 28 Mar, 2012 [facility] [address] [id number] [place] [address]- 8071 28 Mar, 2012 [facility] [address] [id number] [place] [address]- [address]32 14 Mar, 2012 [facility] [address] [id number] [place] [address]- 1143 10 Mar, 2012 [facility] [address] [id number] [place] [address]- 2418 09 Mar, 2012 [facility] [address] [id number] [place] [address]- 8937 Mar, [facility] [address] [id number] [place] [address] 3347 Feb, [facility] [address] [id number] [place] [address] 9184 Feb, [facility] [address] [id number] [place] [address]- 5789 18 Feb, 2012 [facility] [address] [id number] [place] [address]- 1437 18 Feb, 2012 [facility] [address] [id number] [place] [address]854 Feb, [facility] [address] [id number] [place] [address]- 9493 17 Feb, 2012 [facility] [place] [facility] [address] [id number] [place] [address]- 5181 Feb, [facility] [place] [facility] [address] [id number] [place] [address]- 7133 Feb, [facility] [place] [facility] [address] [id number] [place] [address]- 8969 Jan, [facility] [address] [id number] [place] [address]- 2952 Jan, [facility] [place] [facility] [address] [id number] [place] [address]- 3091 Jan, [facility] [place] [facility] [address] [id number] [place] [address]- 4720 Jan, [facility] [place] [facility] [address] [id number] [place] [address]- 2463 Jan, [facility] [place] [facility] [address] [id number] [place] [address]- 4857 Jan, [facility] [place] [facility] [address] [id number] [place] [address]- 1353 Jan, [facility] [place] [facility] [address] [id number] [place] [address]- 1571 Jan, [facility] [place] [facility] [address] [address] [id number] [place] [address] Jan, [facility] [place] [facility] [address] [id number] [place] [address] Jan, [facility] [place] [facility] [address] [id number] [place] [address] Jan, [facility] [place] [facility] [address] [id number] [place] [address] Jan, [facility] [place] [facility] [address] [id number] [place] [address] Jan, [facility] [place] [facility] [address] [id number] [place] [address] Jan, [facility] [place] [facility] [address] [id number] [place] [address] Jan, [facility] [place] [facility] [address] [id number] [place] [address] Jan, [facility] [place] [facility] [address] [id number] [place] [address] Dec, [facility] [place] [facility] [address] [id number] [place] [address] 17 Dec, 2011 [facility] [place] [facility] [address] [id number] [place] [address]898 16 Dec, 2011 [facility] [place] [facility] [address] [id number] [place] [address] 16 Dec, 2011 [facility] [place] [facility] [address] [id number] [place] [address]651 Dec, [facility] [place] [facility] [address] [id number] [place] [address]44 Dec, [facility] [place] [facility] [address] [id number] [place] [address] 7705 Dec, [facility] [place] [facility] [address] [id number] [place] [address] 7983 Dec, [facility] [place] [facility] [address] [id number] [place] [address] 9849 08 Dec, 2011 [facility] [place] [facility] [address] [id number] [place] [address] 9213 05 Dec, 2011 [facility] [place] [facility] [address] [id number] [place] [address] 5672 18 Nov, 2011 [facility] [place] [facility] [address] [id number] [place] [address] 7749 13 Nov, 2011 [facility] [place] [facility] [address] [id number] [place] [address]- [address]86 24 Oct, 2011 [facility] [place] [facility] [address] [id number] [place] [address]165 Oct, [facility] [place] [facility] [address] [id number] [place] [address] 3985 Oct, [facility] [place] [facility] [address] [id number] [place] [address]- 2244 16 Oct, 2011 [facility] [place] [facility] [address] [id number] [place] [address] 9874 15 Oct, 2011 [facility] [place] [facility] [address] [id number] [place] [address]70 Oct, [facility] [address] [id number] [place] [address]327 Oct, [facility] [address] [id number] [place] [address] 2569 Sep, [facility] [address] [id number] [place] [address] 8695 Aug, [facility] [address] [id number] [place] [address] 0833 Aug, [facility] [address] [id number] [place] [address] 6[address] Aug, [facility] [address] [id number] [place] [address] 4431 Aug, [facility] [address] [id number] [place] [address] 7293 Aug, [facility] [address] [id number] [place] [address]10 July, [facility] [address] [id number] [place] [address] 7714 July, [facility] [address] [id number] [place] [address] 1158 July, [facility] [address] [id number] [place] [address] Jun, [facility] [address] [id number] [place] [address] 9164 Jun, [facility] [place] [facility] [address] [id number] [place] [address] 1322 Jun, [facility] [place] [facility] [address] [id number] [place] [address] 112[address] Jun, [facility] [place] [facility] [address] [id number] [place] [address] 7892 May, [facility] [place] [facility] [address] [id number] [place] [address]37 30 May, 2011 [facility] [place] [facility] [address] [id number] [place] [address]- 6516 29 May, 2011 [facility] [place] [facility] [address] [id number] [place] [address] 7054 28 May, 2011 [facility] [place] [facility] [address] [id number] [place] [address]- 0026 23 May, 2011 [facility] [place] [facility] [address] [id number] [place] [address]- 0434 22 May, 2011 [facility] [place] [facility] [address] [id number] [place] [address]- 9276 21 May, 2011 [facility] [place] [facility] [address] [id number] [place] [address]- 2176 May, [facility] [place] [facility] [address] [id number] [place] [address]- 4995 08 May, 2011 [facility] [place] [facility] [address] [id number] [place] [address]- 5358 05 May, 2011 [facility] [place] [facility] [address] [id number] [place] [address]- 9056 02 May, 2011 [facility] [place] [facility] [address] [id number] [place] [address] 8176 May, [facility] [place] [facility] [address] [id number] [place] [address] 1826 Mar, [facility] [place] [facility] [address] [id number] [place] [address] 6436 Mar, [facility] [place] [facility] [address] [id number] [place] [address]- 7026 Feb, [facility] [place] [facility] [address] [id number] [place] [address] 4386 Feb, [facility] [place] [facility] [address] [id number], [place] [address]65 20 Feb, 2011 [facility] [place] [facility] [address] [id number] [place] [address]- 8919 15 Feb, 2011 [facility] [place] [facility] [address] [id number] [place] [address]- 7302 13 Feb, 2011 [facility] [place] [facility] [address] [id number] [place] [address]- 4856 13 Feb, 2011 [facility] [place] [facility] [address] [id number] [place] [address]- 7218 13 Feb, 2011 [facility] [place] [facility] [address] [id number] [place] [address]- 2027 28 Jan, 2011 [facility] [place] [facility] [address] [id number] [place] [address]- 9837 Jan, [facility] [place] [facility] [address] [id number] [place] [address]- 1404 Jan, [facility] [place] [facility] [address] [id number] [place] [address]- 3788 Jan, [facility] [place] [facility] [address] [facility] [place] [place] [id number] [place] [address]- 6396 Jan, [facility] [place] [facility] [address] [facility] [place] [place] [id number] [place] [address]- 6646 Jan, [facility] [place] [facility] [address] [id number], [place] [address] 8447 Dec, [facility] [place] [facility] [address] [id number] [place] [address]- 7690 Dec, [facility] [place] [facility] [address] [id number] [place] [address]- 3875 Dec, [facility] [place] [facility] [address] [id number] [place] [address]- 5734 July, [facility] [place] [facility] [address] [facility] [place] [place] [id number] [place] [address]- 8964 July, [facility] [place] [facility] [address] [id number] [place] [address]- 1636 08 Feb, 2010 [facility] [place] [facility] [address] [id number] [place] [address]- 3138 18 Jan, 2010 [facility] [place] [facility] [address] [id number] [place] [address]- 0727 Dec, [facility] [place] [facility] [address] [id number] [place] [address]- 1640 Dec, [facility] [place] [facility] [address] [id number] [place] [address]- 3891 15 Sep, 2009 [facility] [place] [facility] [address] [id number] [place] [address]- 1746 Aug, [facility] [place] [facility] [address] [facility] [place] [id number] [place] [address]- 3709 Jun, [facility] [place] [facility] [address] [facility] [place] [id number] [place] [address]- 3315 Jun, [facility] [place] [facility] [address] [id number] [place] [address]- 2596 Jan, [facility] [place] [facility] [address] [facility] [place] [id number] [place] [address]- 4932 Jan, [facility] [place] [facility] [address] [facility] [place] [id number] [place] [address]- 9083 Jan, [facility] [place] [facility] [address] [facility] [place] [id number] [place] [address]- 0458 Jan, [facility] [place] [facility] [address] [id number] [place] [address]- 1062 29 Dec, 2008 [facility] [place] [facility] [address] [id number] [place] [address]- 4383 Dec, [facility] [place] [facility] [address] [facility] [place] [id number] [place] [address]- 5444 15 Dec, 2008 [facility] [place] [facility] [address] [id number] [place] [address]- 1832 Nov, [facility] [address] [facility] [place] [place] [id number], [place] [address] 6516 July, [facility] [address] [facility] [place] [id number], [place] [address]- 8216 May, [facility] [address] [facility] [place] [id number], [place] [address]- 6086 Apr, [facility] [address] [facility] [place] [id number], [place] [address]- [address]886 Feb, [facility] [address] [facility] [place] [id number], [place] [address]- [address] Dec, IMMUNIZATIONS No Known Immunizations SOCIAL HISTORY Never Assessed REASON FOR VISIT f/u, contract PLAN OF CARE Activity Details Follow Up 3 Months Reason: VITAL SIGNS MEDICATIONS Medication Instructions Dosage Frequency Start Date End Date Duration Status Lamictal 200 MG Orally every evening 1 tablet May, Active Victoza 18 MG/3ML Subcutaneous Once a day inject 0.3 ml 24h 90 days Active Aspirin Adult Low Strength 81 MG Orally Once a day 1 tablet 24h Active Celexa 40 MG Orally Once a day 1 tablet 24h May, Active Test strips Contour test strips 2 times a day test blood sugar 12h Aug, Active Ativan 0.5 MG Orally Once a day, no early refills 1 tablet as needed Sep, Active Actos 45 MG Orally Once a day #60 samples 1 tablet Apr, Active Amaryl 4 MG Orally Once a day in AM 1 tablet with breakfast or the first main meal of the day Sep, 30 day(s) Active Farxiga 10 MG Orally Once a day 1 tablet 24h Apr, 90 days Active Toprol XL 25 mg take 1 tablet by Oral route 1 time per day take at hs May, Active Tizanidine HCl 4 MG Orally Once a day 1 tablet as needed at bedtime 24h July, 30 days Active NovoLog Mix 70/30 Flexpen (70-30) 100 UNIT/ML Subcutaneous 2 times a day Inject 110 12h Active RESULTS No Results PROCEDURES No Known [...]
--- OUTSIDE RECORDS SUMMARY | 2018-06-14 14:58 | XMS REPORT ---
Author Author BEVERLY TAO Organization [facility] Address [address] [place] [address] Care Team Providers Care Customer Service Consultant Name Role Phone BEVERLY TAO Unavailable PROBLEMS Type Condition ICD9-CM Code YKP72-PA Code Onset Dates Condition Status SNOMED Code Problem Diabetes E11.9 Active 670155015 Problem Lumbar radiculopathy M54.16 Active 613795277 Problem Irritable bowel syndrome with diarrhea K58.0 Active 335240073 Problem New daily persistent headache G44.52 Active 579426171 Problem Acute bilateral low back pain with right-sided sciatica M54.41 Active 578267637 Problem alf current 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 Z79.891 Active 977690401 Problem Bipolar 1 disorder F31.9 Active 783532275 Problem Hyperlipidemia, unspecified E78.5 Active 84810167 Problem Type 2 diabetes mellitus with complication E11.8 Active 251862930 Problem Post laminectomy syndrome M96.1 Active 71807448 Problem Eye exam normal Z01.00 Active 541588589 Problem Bipolar disorder, in partial remission, most recent episode manic F31.73 Active 64204554 Problem Extreme poverty Z59.5 Active 00522599 Problem Obesity, unspecified 278.00 Active 626054717 Problem 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 Active 52943928 Problem Hyperlipidemia 272.4 Active 76642375 Problem Non compliance with medical treatment Z91.19 Active 1747538 ALLERGIES Substance Reaction Event Type Date Status Zithromax Chest pain Drug Allergy Feb, Active Prednisone elevated blood sugars Drug Allergy Feb, Active ENCOUNTERS Encounter Location Date Diagnosis [facility] [address] [facility] [id number] [address] Sep, [facility] [address] [facility] [id number], [place] [address] Sep, [facility] [address], [place] [address] Aug, [facility] [address], [place] [address] Aug, [facility] [address], [place] [address] Aug, [place] [id number] [place] [address] 09078- 8992 Aug, [facility] [id number] [place] [address] 93952- 1022 Aug, Bipolar 1 disorder F31.9 ; 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 and Extreme poverty Z59.5 [place] [id number] [place] [address] 63378- 1714 July, Type 2 diabetes mellitus with complication E11.8 [place] [address] [place] [id number] [place] [address] 86884- 0427 July, Bipolar 1 disorder F31.9 ; 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 and Extreme poverty Z59.5 [place] [address] [place] [address] 43017- 6196 Jun, Bipolar 1 disorder F31.9 ; 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 and Extreme poverty Z59.5 [place] [address] [address] Jun, Bipolar 1 disorder F31.9 ; 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 and Extreme poverty Z59.5 [place] [address], [place] [address] Jun, Bipolar 1 disorder F31.9 ; 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 and Extreme poverty Z59.5 [place] [address], [place] [address] May, Urinary tract infection without hematuria, site unspecified N39.0 [place] [address], [place] [address] 0707 May, Bipolar 1 disorder F31.9 ; 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 and Extreme poverty Z59.5 [place] [address] [place] [id number] [place] [address] 24513- 5991 28 Apr, 2017 Diabetes E11.9 and Breast cancer screening Z12.31 [place] [address] [place] [id number] [place] [address] 84023- 5392 20 Apr, 2017 Bipolar 1 disorder F31.9 and 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 [place] [address] [place] [id number] [place] [address] 98532- 2210 Mar, Bipolar 1 disorder F31.9 ; 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 and Extreme poverty Z59.5 [place] [address] [place] [id number] [place] [address] 24397- 9622 Mar, New daily persistent headache G44.52 ; Leg pain 729.5 and History of carpal tunnel release Z98.890 [facility] [address] [place] [id number] [place] [address] 41658- 4831 Mar, Hyperlipidemia, unspecified E78.[address] 57782- 7448 Mar, Bipolar 1 disorder F31.9 ; 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 and Extreme poverty Z59.5 [place] [address] [place] [id number] [place] [address] 73502- 3597 Feb, Bipolar 1 disorder F31.9 ; 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 and Extreme poverty Z59.5 [place] [address] [place] [id number] [place] [address] 10222- 8506 Feb, Diabetes E11.9 [place] [id number] [place] [address] 39084- 8833 Feb, Viral syndrome B34.9 [place] [id number] [place] [address] 10456- 1387 Jan, Other viral agents as the cause of diseases classified elsewhere B97.89 and Acute upper respiratory infection, unspecified J06.9 [facility] [address] [place] [address] 33262- 9173 Jan, Bipolar 1 disorder F31.9 and 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 [place] [address] [place] [id number] [place] [address] 81636- 0942 Jan, Bipolar 1 disorder F31.9 ; 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 and Extreme poverty Z59.5 [place] [address] [place] [id number] [place] [address] 56854- 2171 Dec, Diabetes E11.9 [place] [address] 45350- 4232 Dec, Diabetes E11.9 and Encounter for immunization Z23 [facility] [address] [place] [id number] [place] [address] 24514- 5068 Dec, Bipolar 1 disorder F31.9 ; 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 and Extreme poverty Z59.5 [place] [address] [place] [id number] [place] [address] 64102- 9265 Dec, Back pain M54.9 [place] [address] [place] [id number] [place] [address] 69897- 0953 Nov, [place] [address] [place] [id number] [place] [address] 68238- 5627 Nov, Bipolar 1 disorder F31.9 ; 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 and Extreme poverty Z59.5 [place] [id number] [place] [address] 79679- 1060 05 Nov, 2016 Bipolar 1 disorder F31.9 ; 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 and Extreme poverty Z59.5 [place] [address] [place] [id number] [place] [address] 42245- 9435 Oct, 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 and Bipolar 1 disorder F31.9 [place] [address] [place] [id number] [place] [address] 12010- 7588 Oct, Bipolar 1 disorder F31.9 ; 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 and Extreme poverty Z59.5 [place] [address] [place] [id number] [place] [address] 74743- 4921 Oct, Back pain M54.9 [facility] [address] [place] [id number] [place] [address] 69064- 1992 Oct, 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 and Type 2 diabetes mellitus with complication E11.8 [place] [address] [place] [id number] [place] [address] 94689- 3764 Sep, Bipolar 1 disorder F31.9 ; 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 and Extreme poverty Z59.5 [place] [address] [place] [id number] [place] [address] 65435- 9826 Sep, 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 and Bipolar 1 disorder F31.9 [place] [address] [place] [id number] [place] [address] 92678- 1394 Sep, Bipolar 1 disorder F31.9 ; 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 and Extreme poverty Z59.5 [place] [address] [place] [id number] [place] [address] 34681- 4998 Aug, Diabetes E11.9 ; Hyperlipidemia, unspecified E78.5 and Lumbar radiculopathy M54.16 [place] [address] [place] [address] 02138- 9161 Aug, Bipolar 1 disorder F31.9 ; 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 and Extreme poverty Z59.5 [place] [id number] [place] [address] 79582- 2566 Aug, [place] [address] [place] [id number] [place] [address] 81491- 6466 Aug, [facility] [address] [place] [id number] [place] [address] 18776- 4520 Aug, [place] [address] [place] [id number] [place] [address] 53495- 8081 July, [facility] [address], [place] [address]- 5227 July, Acute bilateral low back pain with right-sided sciatica M54.41 [facility] [address] [place] [id number] [place] [address] 90061- 4303 July, Bipolar 1 disorder F31.9 ; 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 and Extreme poverty Z59.5 [place] [address] [place] [id number] [place] [address] 29455- 7481 July, Back pain M54.9 and Diabetes E11.9 [place] [address] [place] [id number] [place] [address] 14186- 6680 Jun, Bipolar 1 disorder F31.9 ; 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 and Extreme poverty Z59.5 [place] [address] [place] [id number] [place] [address] 70328- 8638 Jun, Bipolar 1 disorder F31.9 ; 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 and Extreme poverty Z59.5 [place] [address] [place] [id number] [place] [address] 34006- 0690 May, Visit for pelvic exam Z01.419 ; Acute vaginitis N76.0 and Diabetes E11.9 [place] [address] [place] [address] 14235- 7575 May, Bipolar 1 disorder F31.9 ; 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 and Extreme poverty Z59.5 [place] [id number] [place] [address] 94342- 0614 May, [place] [address] [place] [id number] [place] [address] 70643- 3724 May, [place] [address] [place] [id number] [place] [address] 03075- 8117 May, Bipolar 1 disorder F31.9 ; 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 and Extreme poverty Z59.5 [place] [address] [place] [id number] [place] [address] 04690- 4610 May, Hyperlipidemia, unspecified E78.5 [place] [address] [place] [id number] [place] [address] 39872- 4145 Apr, Breast cancer screening Z12.39 [place] [address] [place] [id number] [place] [address] 82586- 4599 Mar, [place] [address] 90747- 2851 Mar, Bipolar disorder, current episode mixed, unspecified F31.60 [place] [address] 20241- 3935 Mar, Bipolar 1 disorder F31.9 ; 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 and Extreme poverty Z59.5 [place] [address] [place] [id number] [place] [address] 67766- 0132 Feb, Acute nasopharyngitis J00 [place] [address] 45305- 1246 Feb, Dental examination Z01.[address] 08654- 1217 Feb, Dental cavities K02.9 and Chronic periodontitis, unspecified K05.30 [place] [address] [place] [id number] [place] [address] 31551- 2718 Feb, Low back pain M54.5 and Extreme poverty Z59.5 [place] [address] [place] [id number] [place] [address] 89999- 6500 Feb, [place] [address] [place] [id number] [place] [address] 78149- 4003 Feb, Routine gynecological examination V72.31 ; Breast cancer screening Z12.39 and Herpes simplex type 1 infection B00.9 [place] [address] [place] [id number] [place] [address] 79182- 2424 Feb, Diabetes E11.9 [place] [address] [place] [id number] [address]- 4658 Feb, Encounter for dental examination and cleaning without abnormal findings Z01.20 [facility] [address] [place] [id number] [place] [address] 93629- 3103 Jan, Hyperlipidemia, unspecified E78.5 [place] [address] [place] [id number] [place] [address] 84456- 7207 Jan, Bipolar 1 disorder F31.9 ; 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 and Extreme poverty Z59.5 [place] [address] [place] [id number] [place] [address] 83836- 4151 18 Jan, 2016 Diabetes E11.9 [place] [address] [place] [id number] [place] [address] 88070- 4795 17 Jan, 2016 Diabetes E11.9 [place] [address] [place] [id number] [place] [address] 63498- 2688 14 Dec, 2015 Bipolar 1 disorder F31.9 ; 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 and Extreme poverty Z59.5 [place] [address] [place] [id number] [place] [address] 47588- 6239 13 Dec, 2015 Bipolar disorder, current episode mixed, unspecified F31.60 and 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 [place] [address] [place] [address] 44418- 2918 16 Nov, 2015 Bipolar 1 disorder F31.9 ; 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 ; Extreme poverty Z59.5 and Non compliance with medical treatment Z91.19 [place] [address] [place] [address] 80758- 3830 Oct, [facility] [address] [place] [id number] [place] [address] 90917- 9879 Oct, Dental caries K02.9 [place] [address] [place] [address] 48376- 7712 Oct, Low back pain M54.5 and Other chronic pain G89.29 [place] [address] [place] [id number] [address]- 7188 Oct, Bipolar 1 disorder F31.9 ; 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 ; Extreme poverty Z59.5 and Non compliance with medical treatment Z91.19 [place] [address] [place] [address] 42689- 9356 Oct, [place] [address] [place] [id number] [place] [address] 46536- 4574 Oct, [place] [address] [place] [id number] [place] [address] 10984- 1919 Oct, Dental examination Z01.20 [place] [address] [place] [id number] [place] [address] 56517- 4686 Oct, Bipolar 1 disorder F31.9 ; 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 ; Extreme poverty Z59.5 and Non compliance with medical treatment Z91.19 [place] [address] [place] [id number] [place] [address] 62336- 3982 Oct, [place] [address] [place] [id number] [place] [address] 18785- 3223 Sep, Type 2 diabetes mellitus with complication E11.8 [place] [address] [place] [id number] [place] [address] 87508- 4715 Sep, Bipolar disorder, current episode mixed, unspecified F31.60 [place] [address] [place] [address] 34878- 7192 Sep, Bipolar disorder, current episode mixed, unspecified F31.60 [place] [address] [place] [address] 37382- 4206 Sep, Bipolar disorder, in partial remission, most recent episode manic F31.73 ; 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 ; Extreme poverty Z59.5 and Non compliance with medical treatment Z91.19 [place] [address] [place] [address] 29701- 7917 Aug, Bipolar disorder, in partial remission, most recent episode manic F31.73 ; 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 ; Extreme poverty Z59.5 and Non compliance with medical treatment Z91.19 [place] [address] [place] [address] 12414- 3038 Aug, Bipolar disorder, in partial remission, most recent episode manic F31.73 ; 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 ; Extreme poverty Z59.5 and Non compliance with medical treatment Z91.19 [place] [address] [place] [address] 76677- 0029 Aug, [place] [address] [place] [address] 78957- 2484 July, Bipolar disorder, in partial remission, most recent episode manic F31.73 ; 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 ; Extreme poverty Z59.5 and Non compliance with medical treatment Z91.19 [place] [address] [place] [address] 62841- 6917 July, Bipolar disorder, current episode mixed, unspecified F31.60 [place] [address] [place] [address] 20950- 9166 July, Bipolar disorder, in partial remission, most recent episode manic F31.73 ; 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 ; Extreme poverty Z59.5 and Non compliance with medical treatment Z91.19 [place] [address], [place] [address]- 7587 July, alf current 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 Z79.891 and Chronic pain G89.29 [place] [address] [place] [address] 99182- 6744 Jun, alf current 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 Z79.891 and Bipolar 1 disorder F31.9 [place] [address] [place] [address] 74650- 7612 Jun, [place] [address] [address]- 6037 Jun, [place] [address], [place] [address]- 3711 Jun, [place] [place] [address] [place] [id number] [place] [address] 10332- 8605 Jun, Bipolar disorder, in partial remission, most recent episode manic F31.73 ; 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 and Non compliance with medical treatment Z91.19 [place] [address] [place] [id number] [place] [address] 46891- 3823 May, Bipolar disorder, in partial remission, most recent episode manic F31.73 ; 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 and Non compliance with medical treatment Z91.19 [place] [address] [place] [id number] [place] [address] 60017- 2367 May, Bipolar disorder, in partial remission, most recent episode manic F31.73 [place] [address] [place] [id number] [place] [address] 65917- 8081 May, Diabetes E11.9 and Chronic pain G89.29 [place] [address] [place] [id number] [place] [address] 89862- 4853 May, [place] [address] [place] [id number] [place] [address] 98664- 9646 May, Bipolar disorder, in partial remission, most recent episode manic F31.73 ; Non compliance with medical treatment Z91.19 and 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 [place] [address] [place] [id number] [place] [address] 47711- 8234 May, Type 2 diabetes mellitus with complication E11.8 and Back pain M54.9 [place] [address] [place] [address] 57214- 6013 May, Bipolar disorder, in partial remission, most recent episode manic F31.73 and 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 [place] [address] [place] [id number] [place] [address] 18156- 6313 Apr, [place] [place] [address] [place] [id number] [place] [address] 2546 18 Apr, 2015 [place] [address] [place] [address] 82111- 2225 Apr, [place] [address] [place] [id number] [place] [address]- 338 09 Apr, 2015 Diabetes E11.9 ; Irritable bowel syndrome with diarrhea K58.0 and Lumbar radiculopathy M54.16 [place] [address] [place] [id number] [place] [address] 30585- 6326 Apr, Breast screening Z12.39 [place] [id number] [place] [address] 05134- 3077 02 Apr, 2015 Bipolar disorder, in partial remission, most recent episode manic F31.73 ; Non compliance with medical treatment Z91.19 and Borderline intellectual functioning R41.[address] 46348- 2159 Mar, Edema, unspecified type R60.9 and Type 2 diabetes mellitus with complication E11.8 [place] [id number] [place] [address] 08051- 3029 Mar, Bipolar disorder, in partial remission, most recent episode manic F31.73 ; Non compliance with medical treatment Z91.19 ; 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 and Extreme poverty Z59.5 [place] [address] [place] [id number] [place] [address] 84235- 5898 Mar, Bipolar disorder, current episode mixed, unspecified F31.60 ; 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 ; Extreme poverty Z59.5 and Generalized anxiety disorder F41.1 [place] [id number] [place] [address] 69484- 1149 Mar, Bipolar disorder, in partial remission, most recent episode manic F31.73 ; 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 and Extreme poverty Z59.5 [place] [id number] [place] [address] 14548- 3863 Feb, Bipolar disorder, in partial remission, most recent episode manic F31.73 ; 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 and Extreme poverty Z59.5 [place] [address] [place] [address] 25658- 8459 Feb, Bipolar disorder, in partial remission, most recent episode manic F31.73 ; 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 and Extreme poverty Z59.5 [place] [address] [place] [id number] [place] [address] 60709- 6248 Feb, [facility] [address] [address] [id number] [place] [address] 58281- 1484 Jan, Type 2 diabetes mellitus with complication E11.8 and Petechiae R23.3 [facility] [address] [place] [id number] [place] [address] 64937- 6347 Jan, Type 2 diabetes mellitus with complication E11.8 ; Edema, unspecified R60.9 ; Petechiae R23.3 and Diabetes E11.9 [place] [id number] [place] [address] 25770- 3757 Jan, Bipolar disorder, in partial remission, most recent episode manic F31.73 ; 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 and Extreme poverty Z59.5 [place] [address] [place] [address] 52007- 4259 Jan, Bipolar disorder, in partial remission, most recent episode manic F31.73 ; 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 and Extreme poverty Z59.5 [place] [address] [place] [address] 25400- 8441 Dec, Bipolar disorder, in partial remission, most recent episode manic F31.73 [facility] [id number] [place] [address] 52203- 0080 Dec, Edema, due to unspecified malnutrition type, unspecified edema R60.9 and Essential hypertension I10 [place] [id number] [place] [address] 41913- 5703 Dec, Bipolar disorder, in partial remission, most recent episode manic F31.73 [facility] [address] [address]- 3583 Nov, Bipolar I disorder, most recent episode (or current) mixed, unspecified 296.60 [facility] [id number] [place] [address] 63779- 0501 Nov, Stress incontinence, female 625.6 ; Back pain 724.5 and Leg pain 729.5 [facility] [id number] [place] [address] 10280- 1741 18 Nov, 2014 Generalized anxiety disorder 300.02 and Bipolar II disorder 296.89 [facility] [id number] [place] [address] 43555- 7999 Nov, Bipolar I disorder, most recent episode (or current) mixed, unspecified 296.60 [facility] [id number] [place] [address] 13362- 1704 Oct, [facility] [id number] [place] [address] 79521- 8536 Oct, [facility] [id number] [place] [address] 07645- 0236 Oct, [facility] [id number] [place] [address] [phone] Oct, Bipolar I disorder, most recent episode (or current) mixed, unspecified 296.60 [facility] [address] [id number] [phone] Sep, Diabetes 250.00 [facility] [id number] [place] [address] [id number] Sep, Bipolar I disorder, most recent episode (or current) mixed, unspecified 296.60 [facility] [address] [address] Sep, [facility] [id number] [place] [address] 9260 Sep, [facility] [id number], [place] [address] Sep, Bipolar I disorder, most recent episode (or current) mixed, unspecified 296.60 [facility] [address] [id number] Sep, Bipolar I disorder, most recent episode (or current) mixed, unspecified 296.60 [facility] [address], [place] [address] Sep, [facility] [address] [address] Sep, Anxiety 300.00 ; Diabetes 250.00 and Hyperlipidemia 272.4 [facility] [address], [place] [address] Aug, [facility] [id number], [place] [address] 8021 Aug, [facility] [address], [place] [address] 98[address] Aug, [facility] [id number], [place] [address] 7483 Aug, Bipolar I disorder, most recent episode (or current) mixed, unspecified 296.60 [facility] [address], [place] [address] Aug, Generalized anxiety disorder 300.02 and Bipolar II disorder 296.89 [facility] [address], [place] [address] 6832 July, Bipolar I disorder, most recent episode (or current) mixed, unspecified 296.60 [facility] [address], [place] [address] 0307 July, Cough 786.2 [facility] [id number], [place] [address] 1672 July, Bipolar I disorder, most recent episode (or current) mixed, unspecified 296.60 [facility] [address], [place] [address] 9557 30 Jun, 2014 Diabetes 250.00 [facility] [address], [place] [address] 6030 14 Jun, 2014 [facility] [address], [place] [address] 8424 Jun, [facility] [address], [place] [address] 8696 24 May, 2014 [facility] [id number] [place] [address]- 8540 May, [facility] [id number] [place] [address] 230[address]- 2331 May, [facility] [id number] [place] [address] 00[address]- 9165 May, [facility] [address], [place] [address]- 1371 May, [facility] [address], [place] [address]- 8887 May, [facility] [address], [place] [address]- 2789 Apr, [facility] [address], [place] [address]- 1634 Apr, 2014 [facility] [address], [place] [address]- 1881 Apr, [facility] [address], [place] [address]- 7978 Apr, [facility] [address], [place] [address]- 6251 Apr, [facility] [address], [place] [address]- 7361 Apr, [facility] [place] [facility] [address] [id number] [place] [address]- 6933 Apr, [facility] [place] [facility] [address] [id number] [place] [address]- 9051 Apr, [facility] [place] [facility] [address] [id number] [place] [address]- 8718 Mar, [facility] [place] [facility] [address] [id number] [place] [address]- 0499 Mar, [facility] [place] [facility] [address] [id number] [place] [address]- 3026 Mar, [facility] [place] [facility] [address] [id number] [place] [address]- 5971 Mar, [facility] [place] [facility] [address] [id number] [place] [address]- 9527 Mar, [facility] [place] [facility] [address] [id number] [place] [address]- 0940 Mar, [facility] [place] [facility] [address] [id number] [place] [address]- 8313 Mar, [facility] [place] [facility] [address] [id number], [place] [address]- 1137 Mar, [facility] [place] [facility] [address] [id number], [place] [address]- 9343 Feb, [facility] [place] [facility] [address] [id number] [address]- 5865 Feb, [facility] [place] [facility] [address] [id number] [place] [address]- 1971 Feb, [facility] [place] [facility] [address] [id number] [place] [address]- 5432 Feb, [facility] [place] [facility] [address] [id number] [place] [address]- 3933 Feb, [facility] [place] [facility] [address] [id number], [place] [address]- 8928 Feb, [facility] [place] [facility] [address] [id number] [place] [address]- 9496 Feb, [facility] [place] [facility] [address] [id number] [place] [address]- 8205 Feb, [facility] [place] [facility] [address] [facility] [id number] [place] [address]- 0103 Feb, [facility] [place] [facility] [address] [id number] [place] [address]- 5032 Feb, [facility] [place] [facility] [address] [id number] [place] [address]- 1426 Jan, [facility] [place] [facility] [address] [id number] [place] [address]- 2474 Jan, [facility] [place] [facility] [address] [facility] [facility] [id number] [place] [address]- 9009 Jan, [facility] [place] [facility] [address] [id number] [place] [address]- 4480 Jan, [facility] [place] [facility] [address] [id number] [place] [address]- 4447 Jan, [facility] [place] [facility] [address] [facility] [facility] [id number] [place] [address]- 7386 Jan, [facility] [place] [facility] [address] [id number], [place] [address]- 4548 Jan, [facility] [place] [facility] [address] [id number], [place] [address]- 6206 Jan, [facility] [place] [facility] [address] [id number], [place] [address]- 7145 Jan, [facility] [place] [facility] [address] [facility] [id number], [place] [address]- 9456 Jan, [facility] [place] [facility] [address] [facility] [id number], [place] [address]- 8808 Jan, [facility] [place] [facility] [address] [id number] [place] [address]- 4099 Jan, [facility] [place] [facility] [address] [id number] [place] [address]- 0019 Jan, [facility] [place] [facility] [address] [id number] [place] [address]- 9456 Jan, [facility] [place] [facility] [address] [id number] [place] [address]- 7889 Jan, [facility] [place] [facility] [address] [id number] [place] [address]- 1160 Dec, [facility] [place] [facility] [address] [id number] [place] [address]- 8786 Dec, [facility] [place] [facility] [address] [id number] [place] 6310 Dec, [facility] [place] [facility] [address] [id number] [place] [address]- 7462 Dec, [facility] [place] [facility] [address] [id number] [place] [address]- 7606 Dec, [facility] [place] [facility] [address] [id number] [place] [address]- 2491 Dec, [facility] [place] [facility] [address] [id number] [place] [address]- 4135 Dec, [facility] [place] [facility] [address] [id number] [place] [address]- 1022 Dec, [facility] [place] [facility] [address] [id number] [place] [address]- 7510 Nov, [facility] [place] [facility] [address] [id number] [place] [address]446 25 Nov, 2013 [facility] [place] [facility] [address] [id number] [place] 3200 Nov, [facility] [place] [facility] [address] [id number] [place] [address]- 8064 10 Nov, 2013 [facility] [place] [facility] [address] [id number] [place] [address]- 4437 08 Sep, 2013 [facility] [place] [facility] [address] [id number] [place] [address]- 5613 08 Nov, 2013 [facility] [place] [facility] [address] [id number] [place] [address]- 5824 08 Nov, 2013 [facility] [place] [facility] [address] [id number] [place] [address]- 9268 08 Nov, 2013 [facility] [place] [facility] [address] [id number] [place] [address]- 6906 08 Nov, 2013 [facility] [place] [facility] [address] [id number] [place] [address]- 8504 08 Nov, 2013 [facility] [place] [facility] [address] [id number] [place] [address]- 5578 04 Nov, 2013 [facility] [place] [facility] [address] [id number] [place] [address]- 3159 04 Nov, 2013 [facility] [place] [facility] [address] [id number] [place] [address]- 1197 03 Nov, 2013 [facility] [place] [facility] [address] [id number] [place] [address]- 7940 02 Nov, 2013 [facility] [place] [facility] [address] [id number], [place] [address]- 1838 Nov, 2013 [facility] [place] [facility] [address] [id number], [place] [address]- 9479 Oct, [facility] [place] [facility] [address] [id number] [place] [address]- 7229 Oct, [facility] [place] [facility] [address] [id number] [place] [address]- 3210 Oct, [facility] [place] [facility] [address] [id number] [place] [address]- 2668 Oct, [facility] [place] [facility] [address] [id number] [place] [address]- 5539 Oct, [facility] [place] [facility] [address] [id number] [place] [address]- 4564 Oct, [facility] [place] [facility] [address] [id number] [place] [address]- 9660 Oct, [facility] [place] [facility] [address] [id number] [place] [address]- 1381 Oct, [facility] [place] [facility] [address] [id number] [place] [address]- 7362 Oct, [facility] [place] [facility] [address] [id number] [place] [address]- 2814 Oct, [facility] [place] [facility] [address] [id number] [place] [address]- 5226 Oct, [facility] [place] [facility] [address] [id number] [place] [address]- 0001 Oct, [facility] [place] [facility] [address] [id number] [place] [address]- 2424 Oct, [facility] [place] [facility] [address] [id number] [place] [address]- 5992 Oct, [facility] [place] [facility] [address] [id number] [place] [address]- 9056 Sep, [facility] [place] [facility] [address] [id number] [place] [address]- 2241 Sep, [facility] [place] [facility] [address] [id number] [place] [address]- 9468 Sep, [facility] [place] [facility] [address] [id number] [place] [address]- 6238 Sep, [facility] [place] [facility] [address] [id number] [place] [address]- 8175 Sep, [facility] [place] [facility] [address] [id number] [place] [address]- 8559 Sep, [facility] [place] [facility] [address] [id number] [place] [address]- 5798 Sep, [facility] [place] [facility] [address] [id number] [place] [address]- 9796 Sep, [facility] [place] [facility] [address] [id number] [place] [address]- 0159 Aug, [facility] [place] [facility] [address] [id number] [place] [address]- 0084 Aug, [facility] [place] [facility] [address] [id number] [place] [address]- 5855 Aug, [facility] [place] [facility] [address] [id number] [place] [address]- 8739 Aug, [facility] [place] [facility] [address] [id number] [place] [address]- 9631 Aug, [facility] [place] [facility] [address] [id number] [place] [address]- 4036 Aug, [facility] [place] [facility] [address] [id number] [place] [address]- 0939 Aug, [facility] [place] [facility] [address] [id number] [place] [address]- 3539 Aug, [facility] [place] [facility] [address] [id number] [place] [address]- 1894 July, [facility] [place] [facility] [address] [id number] [place] [address]- 5473 July, [facility] [place] [facility] [address] [id number] [place] [address]- 6028 July, [facility] [place] [facility] [address] [id number] [place] [address]- 2612 July, [facility] [place] [facility] [address] [id number] [place] [address]- 8979 July, [facility] [place] [facility] [address] [id number] [place] [address]- 4677 July, [facility] [place] [facility] [address] [id number] [place] [address]- 6569 July, [facility] [place] [facility] [address] [id number] [place] [address]- 1467 July, [facility] [place] [facility] [address] [id number] [place] [address]- 1817 Jun, [facility] [place] [facility] [address] [id number] [place] [address]- 9656 Jun, [facility] [place] [facility] [address] [id number] [place] [address]- 1496 Jun, [facility] [place] [facility] [address] [id number] [place] [address]- 4498 Jun, [facility] [place] [facility] [address] [id number] [place] [address]- 3416 Jun, [facility] [place] [facility] [address] [id number] [place] [address]- 0157 Jun, [facility] [place] [facility] [address] [id number] [place] [address]- 6168 Jun, [facility] [place] [facility] [address] [id number] [place] [address]- 9511 Jun, [facility] [place] [facility] [address] [id number] [place] [address]- 6823 Jun, [facility] [place] [facility] [address] [id number] [place] [address]- 6168 Jun, [facility] [place] [facility] [address] [id number] [place] [address]- 7660 Jun, [facility] [place] [facility] [address] [id number] [place] [address]- 2438 Jun, [facility] [place] [facility] [address] [id number] [place] [address]- 6526 May, [facility] [place] [facility] [address] [id number] [place] [address]- 8481 26 May, 2013 [facility] [place] [facility] [address] [id number] [place] [address]- 8458 26 May, 2013 [facility] [place] [facility] [address] [id number] [place] [address]- 2056 26 May, 2013 [facility] [place] [facility] [address] [id number] [place] [address]- 1027 13 May, 2013 [facility] [place] [facility] [address] [id number] [place] [address]- 1755 13 May, 2013 [facility] [place] [facility] [address] [id number] [place] [address]- 3956 12 May, 2013 [facility] [place] [facility] [address] [id number] [place] [address]- 7870 May, [facility] [place] [facility] [address] [id number] [place] [address]- 3931 11 May, 2013 [facility] [place] [facility] [address] [id number] [place] [address]- 9480 11 May, 2013 [facility] [place] [facility] [address] [id number] [place] [address]- 6712 11 May, 2013 [facility] [place] [facility] [address] [id number] [place] [address]- 2520 May, [facility] [place] [facility] [address] [id number] [place] [address]- 7238 10 May, 2013 [facility] [place] [facility] [address] [id number] [place] [address]- 9615 May, [facility] [place] [facility] [address] [id number] [place] [address]- 7105 Apr, [facility] [place] [facility] [address] [id number] [place] [address]- 0716 Apr, [facility] [place] [facility] [address] [id number] [place] [address]- 6956 Apr, [facility] [place] [facility] [address] [id number] [place] [address]- 4946 Apr, [facility] [place] [facility] [address] [id number] [place] [address]- 3346 Apr, [facility] [place] [facility] [address] [id number] [place] [address]- 1376 Apr, [facility] [place] [facility] [address] [id number] [place] [address]- 4130 Mar, [facility] [place] [facility] [address] [id number] [place] [address]- 1191 Mar, [facility] [place] [facility] [address] [id number] [place] [address]- 9787 Mar, [facility] [place] [facility] [address] [id number] [place] [address]- 6904 Mar, [facility] [place] [facility] [address] [id number] [place] [address]- 6478 Mar, [facility] [place] [facility] [address] [id number] [place] [address]- 9048 Mar, [facility] [place] [facility] [address] [id number] [place] [address]- 2681 Mar, [facility] [place] [facility] [address] [id number] [place] [address]- 5213 Mar, [facility] [place] [facility] [address] [id number], [place] [address]- 9499 Mar, [facility] [place] [facility] [address] [id number] [place] [address]- 8681 Mar, [facility] [place] [facility] [address] [id number] [place] [address]- 4136 Mar, [facility] [place] [facility] [address] [id number] [place] [address]- 5617 Mar, [facility] [place] [facility] [address] [id number] [place] [address]- 0989 Mar, [facility] [address] [id number] [place] [address]- 5199 Mar, [facility] [address] [id number] [place] 4632 Feb, [facility] [address] [id number] [place] [address]- 5498 Feb, [facility] [address] [id number] [place] [address]- 7653 Feb, [facility] [address] [id number] [place] [address]- 2752 Feb, [facility] [address] [id number] [place] [address]- 4464 Feb, [facility] [address] [id number] [place] [address]- 5638 Feb, [facility] [address] [id number] [place] [address]- 0461 Feb, [facility] [address] [id number] [place] [address]- 9132 Feb, [facility] [address] [id number] [place] [address]- 8494 Feb, [facility] [address] [id number] [place] [address]- 1388 Feb, [facility] [address] [id number] [place] [address]- 8291 Feb, [facility] [address] [id number] [place] [address]- 4123 Feb, [facility] [address] [id number] [place] [address]- 9442 Feb, [facility] [address] [id number] [place] [address]- 4272 Feb, [facility] [place] [facility] [address] [id number] [place] [address]- 5515 05 Feb, 2012 [facility] [place] [facility] [address] [id number] [place] [address]- 6061 05 Feb, 2012 [facility] [place] [facility] [address] [id number] [place] [address]- 9368 24 Dec, 2012 [facility] [place] [facility] [address] [id number] [place] [address]- 6972 24 Dec, 2012 [facility] [place] [facility] [address] [id number] [place] [address]- 0076 16 Dec, 2012 [facility] [place] [facility] [address] [id number] [place] [address]- 5505 16 Dec, 2012 [facility] [place] [facility] [address] [id number] [place] [address]- 7023 16 Dec, 2012 [facility] [place] [facility] [address] [id number] [place] [address] 16 Dec, 2012 [facility] [place] [facility] [address] [id number] [place] [address] 1844 14 Dec, 2012 [facility] [place] [facility] [address] [id number], [place] [address] 14 Dec, 2012 [facility] [place] [facility] [address] [id number], [place] [address] 10 Dec, 2012 [facility] [place] [facility] [address] [id number], [place] [address] 10 Dec, 2012 [facility] [place] [facility] [address] [id number], [place] [address]70 10 Dec, 2012 [facility] [place] [facility] [address] [id number], [place] [address] 10 Dec, 2012 [facility] [place] [facility] [address] [id number] [address] 03 Dec, 2012 [facility] [place] [facility] [address] [id number], [place] [address] 25 Nov, 2012 [facility] [place] [facility] [address] [id number] [place] [address] 20 Nov, 2012 [facility] [place] [facility] [address] [id number] [place] [address] 9866 18 Nov, 2012 [facility] [place] [facility] [address] [id number] [place] [address] 6297 16 Nov, 2012 [facility] [place] [facility] [address] [id number] [place] [address] 5359 12 Nov, 2012 [facility] [place] [facility] [address] [id number] [place] [address] 6622 11 Nov, 2012 [facility] [place] [facility] [address] [id number] [place] [address] 0644 05 Nov, 2012 [facility] [place] [facility] [address] [id number] [place] [address] 5431 15 Oct, 2012 [facility] [place] [facility] [address] [id number] [place] [address] Oct, [facility] [place] [facility] [address] [id number] [place] [address] 24 Sep, 2012 [facility] [place] [facility] [address] [id number] [place] [address]237 Sep, [facility] [place] [facility] [address] [id number] [place] [address] Sep, [facility] [place] [facility] [address] [id number] [place] [address] 8341 17 Sep, 2012 [facility] [place] [facility] [address] [id number] [place] [address] 3717 15 Sep, 2012 [facility] [place] [facility] [address] [id number] [place] [address]179 Sep, [facility] [place] [facility] [address] [id number] [place] [address] 9488 Sep, [facility] [place] [facility] [address] [id number] [place] [address] 6016 25 Aug, 2012 [facility] [address] [id number] [place] [address] 7631 18 Aug, 2012 [facility] [address] [id number] [place] [address] 2546 16 Aug, 2012 [facility] [address] [id number] [place] [address]859 Aug, [facility] [address] [id number] [place] [address]105 Aug, [facility] [address] [id number] [place] [address] 7949 Aug, [facility] [address] [id number] [place] [address] Aug, [facility] [address] [id number] [place] [address]78 Aug, [facility] [address] [id number] [place] [address] 9293 July, [facility] [address] [id number] [place] [address]6 July, [facility] [address] [id number] [place] [address] July, [facility] [address] [id number] [place] [id number] July, [facility] [address] [id number] [place] [address] 8636 July, [facility] [place] [facility] [address] [id number] [place] [address]156 Jun, [facility] [place] [facility] [address] [id number] [place] [address] 2546 May, [facility] [address] [id number] [place] [address]36 14 May, 2012 [facility] [address] [id number] [place] [address] 8533 04 May, 2012 [facility] [address] [id number] [place] [address] Apr, [facility] [address] [id number] [place] [address] 1610 Apr, [facility] [address] [id number] [place] [address]- 9580 Apr, [facility] [address] [id number] [place] [address] Mar, [facility] [address] [id number] [place] [address]- 2325 Mar, [facility] [address] [id number] [place] [address]- 6886 Mar, [facility] [address] [id number] [place] [address]- [address]117 Mar, [facility] [address] [id number] [place] [address] 1620 Mar, [facility] [address] [id number] [place] [address] 2472 Mar, [facility] [address] [id number], [place] [address] Mar, [facility] [place] [facility] [address] [id number], [place] [address] Feb, [facility] [place] [facility] [address] [id number] [place] [address] 5439 Feb, [facility] [place] [facility] [address] [id number] [place] [address] 67[address] Feb, [facility] [place] [facility] [address] [id number] [place] [address] 2826 Feb, [facility] [place] [facility] [address] [id number] [place] [address] 8059 17 Feb, 2012 [facility] [place] [facility] [address] [id number] [place] [address] 2413 17 Feb, 2012 [facility] [place] [facility] [address] [id number] [place] [address] Feb, [facility] [place] [facility] [address] [id number] [place] [address] 6849 Feb, [facility] [place] [facility] [address] [id number] [place] [address] 3059 Jan, [facility] [place] [facility] [address] [id number] [place] [address] 2856 Jan, [facility] [place] [facility] [address] [id number] [place] [address] 3852 Jan, [facility] [place] [facility] [address] [id number] [place] [address]- 9739 Jan, [facility] [place] [facility] [address] [id number] [place] [address] 8224 Jan, [facility] [place] [facility] [address] [id number] [place] [address] 2771 Jan, [facility] [place] [facility] [address] [id number] [place] [address] 3849 Jan, [facility] [place] [facility] [address] [id number] [place] [address] Jan, [facility] [place] [facility] [address] [id number] [address] Jan, [facility] [place] [facility] [address] [id number] [place] [address] Jan, [facility] [place] [facility] [address] [id number] [place] [address] Jan, [facility] [place] [facility] [address] [id number], [place] [address] Jan, [facility] [place] [facility] [address] [id number] [place] [address] Jan, [facility] [place] [facility] [address] [id number] [place] [address] Jan, [facility] [place] [facility] [address] [id number] [place] [address] Jan, [facility] [place] [facility] [address] [id number] [place] [address] Jan, [facility] [place] [facility] [address] [id number] [place] [address] Dec, [facility] [place] [facility] [address] [id number] [place] [address] 269[address] Dec, [facility] [place] [facility] [address] [id number] [place] [address] Dec, [facility] [place] [facility] [address] [id number] [place] [address] Dec, [facility] [place] [facility] [address] [id number] [place] [address] Dec, [facility] [place] [facility] [address] [id number] [place] [address] Dec, [facility] [place] [facility] [address] [id number] [place] [address] Dec, [facility] [place] [facility] [address] [id number] [place] [address] Dec, [facility] [place] [facility] [address] [id number] [place] [address] Dec, [facility] [place] [facility] [address] [id number] [place] [address] 05 Dec, 2011 [facility] [place] [facility] [address] [id number] [place] [address] 18 Nov, 2011 [facility] [place] [facility] [address] [id number] [place] [address]149 Nov, [facility] [place] [facility] [address] [id number] [place] [address]47 Oct, [facility] [place] [facility] [address] [id number] [place] [address] 1692 Oct, [facility] [place] [facility] [address] [id number] [place] [address]39 Oct, [facility] [place] [facility] [address] [id number] [place] [address] 286[address] Oct, [facility] [place] [facility] [address] [id number] [place] [address] 2946 Oct, [facility] [place] [facility] [address] [id number] [place] [address] Oct, [facility] [place] [facility] [address] [id number] [place] [address] Oct, [facility] [place] [facility] [address] [id number] [place] [address] Sep, [facility] [place] [facility] [address] [id number] [place] [address] 6860 Aug, [facility] [place] [facility] [address] [id number] [place] [address]594 Aug, [facility] [place] [facility] [address] [id number] [place] [address] Aug, [facility] [place] [facility] [address] [id number] [place] [address]179 Aug, [facility] [place] [facility] [address] [id number] [place] [address] 40[address] Aug, [facility] [place] [facility] [address] [id number] [place] [address] July, [facility] [place] [facility] [address] [id number] [place] [address] July, [facility] [place] [facility] [address] [id number] [place] [address] July, [facility] [address] [id number] [place] [address] Jun, [facility] [address] [id number] [place] [address] 3716 Jun, [facility] [address] [id number] [place] [address] Jun, [facility] [address] [id number] [place] [address] Jun, [facility] [address] [id number] [place] [address] 30 May, 2011 [facility] [address] [id number] [place] [address]40 30 May, 2011 [facility] [address] [id number] [place] [address] 9568 29 May, 2011 [facility] [address] [id number] [place] [address] 28 May, 2011 [facility] [address] [id number] [place] [address]- 8560 23 May, 2011 [facility] [address] [id number] [place] [address] 0562 May, [facility] [address] [id number] [place] [address] 7678 May, [facility] [address] [id number] [place] [address] 7644 May, [facility] [place] [facility] [address] [id number] [place] [address]- 9289 08 May, 2011 [facility] [address] [id number] [place] [address]- 2546 05 May, 2011 [facility] [address] [id number] [place] [address]- 1026 May, [facility] [address] [id number] [place] [address]- 5978 May, [facility] [place] [facility] [address] [id number] [place] [address] 5896 Mar, [facility] [place] [facility] [address] [id number] [place] [address] 7806 Mar, [facility] [place] [facility] [address] [id number] [place] [address]- 4766 Feb, [facility] [place] [facility] [address] [id number] [place] [address] 3287 Feb, [facility] [place] [facility] [address] [id number] [place] [address] 4[address] Feb, [facility] [place] [facility] [address] [id number] [place] [address] 5942 15 Feb, 2011 [facility] [place] [facility] [address] [id number] [place] [address] 6317 Feb, [facility] [place] [facility] [address] [id number] [place] [address]- 2406 Feb, [facility] [place] [facility] [address] [id number] [place] [address]- 2183 Feb, [facility] [place] [facility] [address] [id number] [place] [address] 5219 Jan, [facility] [place] [facility] [address] [id number], [place] [address]65 Jan, [facility] [place] [facility] [address] [id number] [place] [address]- 4118 22 Jan, 2011 [facility] [place] [facility] [address] [id number] [place] [address]- 8706 17 Jan, 2011 [facility] [place] [facility] [address] [id number], [place] [address]- [address]26 07 Jan, 2011 [facility] [place] [facility] [address] [id number], [place] [address]- 9965 Jan, [facility] [address] [id number] [place] [address]- 3422 Dec, [facility] [place] [facility] [address] [id number] [place] [address]- 5555 Dec, [facility] [place] [facility] [address] [id number] [place] [address]- 8121 Dec, [facility] [place] [facility] [address] [id number] [place] [address]- 8094 July, [facility] [place] [facility] [address] [id number] [place] [address]- 6510 July, [facility] [place] [facility] [address] [id number] [place] [address]- 9274 Feb, [facility] [place] [facility] [address] [facility] [id number] [place] [address]- 9774 Jan, [facility] [place] [facility] [address] [id number] [place] [address]- 2430 Dec, [facility] [place] [facility] [address] [facility] [id number] [place] [address]- 7597 Dec, [facility] [place] [facility] [address] [facility] [id number] [place] [address]- 7918 Sep, [facility] [place] [facility] [address] [id number], [place] [address]- 1087 Aug, [facility] [place] [facility] [address] [id number] [place] [address]- 8859 Jun, [facility] [place] [facility] [address] [id number] [place] [address]- 4210 Jun, [facility] [place] [facility] [address] [facility] [id number] [place] [address]- 3962 Jan, [facility] [place] [facility] [address] [facility] [id number] [place] [address]- 4350 Jan, [facility] [place] [facility] [id number] [address] 134[address] Jan, [facility] [id number] [address] [address] Jan, [facility] [id number], [place] [address] 3392 Dec, [facility] [id number] [address] Dec, [facility] [id number], [place] [address]- 0783 Dec, [facility] [id number] [place] [address]- 4689 Nov, [facility] [id number], [place] [address]- 8421 July, [facility] [id number] [place] [address] 0674 May, [facility] [id number], [place] [address]- 6749 Apr, [facility] [id number], [place] [address]- 4705 Feb, [facility] [id number], [place] [address]- 1304 Dec, IMMUNIZATIONS No Known Immunizations SOCIAL HISTORY Never Assessed REASON FOR VISIT Vomiting/Weakness--Donna Vicente MA PLAN OF CARE Activity Details Follow Up prn Reason: VITAL SIGNS Height 64 in 2017-03-01 Weight 183.4 lbs 2017-03-01 Temperature 98.5 degrees Fahrenheit 2017-03-01 Heart Rate 108 bpm 2017-03-01 Respiratory Rate 20 2017-03-01 BMI 31.48 kg/m2 2017-03-01 Blood pressure systolic 118 mmHg 2017-03-01 Blood pressure diastolic 84 mmHg 2017-03-01 MEDICATIONS Medication Instructions Dosage Frequency Start Date [...] Once a day 1 tablet 24h Active Amaryl 4 MG Orally Once a day in AM 1 tablet with breakfast or the first main meal of the day Sep, 30 day(s) Active Lamictal 200 MG Orally every evening 1 tablet May, Active Actos 45 MG Orally Once a day #60 samples 1 tablet Apr, Active Ativan 0.5 MG Orally Once a day, no early refills 1 tablet as needed Sep, Active Celexa 40 MG Orally Once a day 1 tablet 24h May, Active Toprol XL 25 mg take 1 tablet by Oral route 1 time per day take at hs May, Active Farxiga 10 MG Orally Once a day 1 tablet 24h Apr, 90 days Active Tizanidine HCl 4 MG [...]
--- OUTSIDE RECORDS SUMMARY | 2018-06-14 15:01 | XMS REPORT ---
Author Author BEVERLY TAO Organization [facility] Address [address] [place] [address] Care Team Providers Care Dietary Aide Cook Name Role Phone BEVERLY TAO Unavailable PROBLEMS Type Condition ICD9-CM Code [id number] Code Onset Dates Condition Status SNOMED Code Problem Diabetes E11.9 Active 899109206 Problem Lumbar radiculopathy M54.16 Active 559567211 Problem Irritable bowel syndrome with diarrhea K58.0 Active 861994635 Problem New daily persistent headache G44.52 Active 430964482 Problem Acute bilateral low back pain with right-sided sciatica M54.41 Active 453234799 Problem 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 Active 651436153 Problem Bipolar 1 disorder F31.9 Active 871594064 Problem Hyperlipidemia, unspecified E78.5 Active 05304344 Problem Type 2 diabetes mellitus with complication E11.8 Active 939993710 Problem Post laminectomy syndrome M96.1 Active 74881261 Problem Eye exam normal Z01.00 Active 659958358 Problem Bipolar disorder, in partial remission, most recent episode manic F31.73 Active 53614460 Problem Extreme poverty Z59.5 Active 95464189 Problem Obesity, unspecified 278.00 Active 007375103 Problem 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 Active 34158541 Problem Hyperlipidemia 272.4 Active 64962774 Problem Non compliance with medical treatment Z91.19 Active [id number] ALLERGIES No Information ENCOUNTERS Encounter Location Date Diagnosis [facility] [id number] [address] Sep, [facility] [address], [place] [address] Sep, [facility] [id number], [place] [address] Aug, [facility] [address], [place] [address] Aug, [facility] [address] [place] [address] 29733- 1260 Aug, [facility] [address], [place] [address] Aug, [facility] [address] [place] [address] 51627- 3509 Aug, Bipolar 1 disorder F31.9 ; 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 and Extreme poverty Z59.5 [facility] [address] [place] [address] 27554- 3092 July, Type 2 diabetes mellitus with complication E11.8 [facility] [address] [place] [address] 32509- 5938 July, Bipolar 1 disorder F31.9 ; 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 and Extreme poverty Z59.5 [facility] [address], [place] [address] Jun, Bipolar 1 disorder F31.9 ; 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 and Extreme poverty Z59.5 [facility] [address] [place] [address] 67702- 2731 Jun, Bipolar 1 disorder F31.9 ; 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 and Extreme poverty Z59.5 [facility] [address], [place] [address] Jun, Bipolar 1 disorder F31.9 ; 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 and Extreme poverty Z59.5 [facility] [address], [place] [address] May, Urinary tract infection without hematuria, site unspecified N39.0 [facility] [address] [address] May, Bipolar 1 disorder F31.9 ; 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 and Extreme poverty Z59.5 [place] [id number] [place] [address] 55104- 4428 28 Apr, 2017 Diabetes E11.9 and Breast cancer screening Z12.31 [place] [address] [address]- 2632 20 Apr, 2017 Bipolar 1 disorder F31.9 and 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 [place] [address] [id number] [address]751 Mar, Bipolar 1 disorder F31.9 ; 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 and Extreme poverty Z59.5 [address] [address]- [address] Mar, New daily persistent headache G44.52 ; Leg pain 729.5 and History of carpal tunnel release Z98.[address] [address]88- 4860 Mar, Hyperlipidemia, unspecified E78.5 [place] [id number] [place] [address] 21621- 7374 Mar, Bipolar 1 disorder F31.9 ; 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 and Extreme poverty Z59.5 [place] [id number] [place] [address] 08854- 0459 Feb, Bipolar 1 disorder F31.9 ; 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 and Extreme poverty Z59.5 [place] [id number] [place] [address] 84904- 3581 Feb, Diabetes E11.9 [place] [address] 54598- 5704 Feb, Viral syndrome B34.[address] 18172- 7703 Jan, Other viral agents as the cause of diseases classified elsewhere B97.89 and Acute upper respiratory infection, unspecified J06.[address] [place] [address]- 9918 Jan, Bipolar 1 disorder F31.9 and 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 [place] [id number] [place] [address] 41915- 2839 Jan, Bipolar 1 disorder F31.9 ; 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 and Extreme poverty Z59.5 [place] [address] 59321- 7978 Dec, Diabetes E11.9 [place] [address] 46840- 9011 Dec, Diabetes E11.9 and Encounter for immunization Z23 [place] [address] 16330- 2753 Dec, Bipolar 1 disorder F31.9 ; 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 and Extreme poverty Z59.5 [place] [address] 85275- 8021 Dec, Back pain M54.9 [place] [id number] [place] [address] 61380- 4442 Nov, [place] [id number] [place] [address] 41195- 7621 Nov, Bipolar 1 disorder F31.9 ; 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 and Extreme poverty Z59.5 [place] [id number] [place] [address] 44619- 2291 Nov, Bipolar 1 disorder F31.9 ; 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 and Extreme poverty Z59.5 [place] [id number] [place] [address] 89083- 1469 Oct, 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 and Bipolar 1 disorder F31.9 [place] [id number] [place] [address] 45961- 5726 Oct, Bipolar 1 disorder F31.9 ; 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 and Extreme poverty Z59.5 [place] [address] [place] [address] 56288- 8185 Oct, Back pain M54.9 [place] [id number] [place] [address] 50833- 2553 Oct, 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 and Type 2 diabetes mellitus with complication E11.8 [place] [id number] [place] [address] 85181- 8363 Sep, Bipolar 1 disorder F31.9 ; 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 and Extreme poverty Z59.5 [place] [id number] [place] [address] 25163- 2786 Sep, 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 and Bipolar 1 disorder F31.9 [place] [id number] [place] [address] 54600- 9864 Sep, Bipolar 1 disorder F31.9 ; 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 and Extreme poverty Z59.5 [place] [id number] [place] [address] 11187- 2743 Aug, Diabetes E11.9 ; Hyperlipidemia, unspecified E78.5 and Lumbar radiculopathy M54.16 [place] [id number] [place] [address] 82021- 9868 Aug, Bipolar 1 disorder F31.9 ; 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 and Extreme poverty Z59.5 [place] [address] [place] [address] 15488- 9658 Aug, [place] [id number] [place] [address] 57108- 7904 Aug, [place] [id number] [place] [address] 91433- 5861 Aug, [place] [id number] [place] [address] 61761- 6100 July, [place] [id number] [place] [address] 50766- 0206 July, Acute bilateral low back pain with right-sided sciatica M54.41 [place] [id number] [place] [address] 88420- 3840 July, Bipolar 1 disorder F31.9 ; 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 and Extreme poverty Z59.5 [place] [id number] [place] [address] 66389- 2465 July, Back pain M54.9 and Diabetes E11.9 [place] [id number] [place] [address] 15301- 6536 Jun, Bipolar 1 disorder F31.9 ; 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 and Extreme poverty Z59.5 [place] [id number] [place] [address] 66773- 2779 Jun, Bipolar 1 disorder F31.9 ; 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 and Extreme poverty Z59.5 [place] [id number] [place] [address] 91902- 6323 May, Visit for pelvic exam Z01.419 ; Acute vaginitis N76.0 and Diabetes E11.9 [place] [id number] [place] [address] 02889- 0085 May, Bipolar 1 disorder F31.9 ; 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 and Extreme poverty Z59.5 [place] [id number] [place] [address] 73255- 4804 May, [place] [id number] [place] [address] 33253- 9534 May, [place] [id number] [place] [address] 42279- 0668 May, Bipolar 1 disorder F31.9 ; 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 and Extreme poverty Z59.5 [place] [id number] [place] [address] 13885- 0373 May, Hyperlipidemia, unspecified E78.5 [place] [id number] [place] [address] 70556- 8678 13 Apr, 2016 Breast cancer screening Z12.39 [place] [address] 86872- 0066 Mar, [place] [address] 78167- 0148 Mar, Bipolar disorder, current episode mixed, unspecified F31.60 [place] [address] 50135- 4514 Mar, Bipolar 1 disorder F31.9 ; 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 and Extreme poverty Z59.[address] 49553- 7756 Feb, Acute nasopharyngitis J00 [address] 73539- 8602 27 Feb, 2016 Dental examination Z01.[address] 62313- 7671 21 Feb, 2016 Dental cavities K02.9 and Chronic periodontitis, unspecified K05.30 [id number] [place] [address] 31673- 5445 Feb, Low back pain M54.5 and Extreme poverty Z59.5 [place] [address] 23962- 0174 Feb, [address] 08029- 1365 05 Feb, 2016 Routine gynecological examination V72.31 ; Breast cancer screening Z12.39 and Herpes simplex type 1 infection B00.9 [id number] [place] [address] 99751- 4672 Feb, Diabetes E11.[address] 38325- 7803 Feb, Encounter for dental examination and cleaning without abnormal findings Z01.20 [place] [id number] [place] [address] 12230- 7160 Jan, Hyperlipidemia, unspecified E78.5 [place] [id number] [place] [address] 759476- 3470 22 Jan, 2016 Bipolar 1 disorder F31.9 ; 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 and Extreme poverty Z59.5 [place] [address] 93947- 8872 18 Jan, 2016 Diabetes E11.9 [place] [address] [address]- 4282 17 Jan, 2016 Diabetes E11.9 [place] [address] 949869- 9951 14 Dec, 2015 Bipolar 1 disorder F31.9 ; 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 and Extreme poverty Z59.5 [place] [address] 27082- 7712 13 Dec, 2015 Bipolar disorder, current episode mixed, unspecified F31.60 and 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 [place] [address] 16232- 6508 16 Nov, 2015 Bipolar 1 disorder F31.9 ; 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 ; Extreme poverty Z59.5 and Non compliance with medical treatment Z91.19 [place] [id number] [place] [address] 84435- 2389 Oct, [place] [id number] [place] [address] 51298- 2343 Oct, Dental caries K02.9 [place] [address] 68883- 1675 Oct, Low back pain M54.5 and Other chronic pain G89.[address] 66981- 6918 Oct, Bipolar 1 disorder F31.9 ; 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 ; Extreme poverty Z59.5 and Non compliance with medical treatment Z91.19 [place] [address] [place] [address] 72886- 5438 Oct, [place] [id number] [place] [address] 99757- 2934 Oct, [place] [id number] [place] [address] 05537- 9211 Oct, Dental examination Z01.20 [place] [id number] [place] [address] 22011- 4303 Oct, Bipolar 1 disorder F31.9 ; 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 ; Extreme poverty Z59.5 and Non compliance with medical treatment Z91.19 [place] [id number] [place] [address] 01453- 2879 Oct, [place] [id number] [place] [address] 81515- 2009 Sep, Type 2 diabetes mellitus with complication E11.8 [place] [id number] [place] [address] 04854- 9594 Sep, Bipolar disorder, current episode mixed, unspecified F31.60 [place] [address] [place] [address] 36815- 7772 Sep, Bipolar disorder, current episode mixed, unspecified F31.60 [place] [id number] [place] [address] 70289- 6563 Sep, Bipolar disorder, in partial remission, most recent episode manic F31.73 ; 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 ; Extreme poverty Z59.5 and Non compliance with medical treatment Z91.19 [place] [address] [place] [address] 97706- 1524 Aug, Bipolar disorder, in partial remission, most recent episode manic F31.73 ; 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 ; Extreme poverty Z59.5 and Non compliance with medical treatment Z91.19 [place] [address] [place] [address] 76611- 1262 09 Aug, 2015 Bipolar disorder, in partial remission, most recent episode manic F31.73 ; 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 ; Extreme poverty Z59.5 and Non compliance with medical treatment Z91.19 [place] [address] [place] [address] 50322- 5243 Aug, [place] [id number] [place] [address] 22138- 9292 July, Bipolar disorder, in partial remission, most recent episode manic F31.73 ; 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 ; Extreme poverty Z59.5 and Non compliance with medical treatment Z91.19 [place] [address] [place] [address] 34710- 2561 July, Bipolar disorder, current episode mixed, unspecified F31.60 [place] [id number] [place] [address] 09881- 7300 July, Bipolar disorder, in partial remission, most recent episode manic F31.73 ; 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 ; Extreme poverty Z59.5 and Non compliance with medical treatment Z91.19 [place] [address] [place] [address] 05412- 1136 July, 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 and Chronic pain G89.29 [place] [id number] [place] [address] 07753- 0019 Jun, 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 and Bipolar 1 disorder F31.9 [place] [id number] [place] [address] 23503- 0138 Jun, [place] [id number] [place] [address] 10425- 5040 Jun, [place] [address] [place] [address] 19019- 6042 Jun, [place] [address], [place] [address]- 5200 Jun, Bipolar disorder, in partial remission, most recent episode manic F31.73 ; 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 and Non compliance with medical treatment Z91.19 [place] [address], [place] [address]- 1176 29 May, 2015 Bipolar disorder, in partial remission, most recent episode manic F31.73 ; 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 and Non compliance with medical treatment Z91.19 [place] [id number] [place] [address] 51331- 6766 22 May, 2015 Bipolar disorder, in partial remission, most recent episode manic F31.73 [place] [id number] [place] [address] 63783- 4687 May, Diabetes E11.9 and Chronic pain G89.29 [place] [id number] [place] [address] 74649- 0390 14 May, 2015 [place] [id number] [place] [address] 03907- 8792 May, Bipolar disorder, in partial remission, most recent episode manic F31.73 ; Non compliance with medical treatment Z91.19 and 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 [place] [address] [place] [address] 39039- 5311 May, Type 2 diabetes mellitus with complication E11.8 and Back pain M54.9 [place] [address] [place] [address] 35266- 7687 May, Bipolar disorder, in partial remission, most recent episode manic F31.73 and 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 [place] [address] [place] [address] 55081- 4947 Apr, [place] [address] [place] [address] 68115- 3086 Apr, [place] [id number] [place] [address] 64109- 6706 10 Apr, 2015 [place] [id number] [place] [address] 92632- 5578 09 Apr, 2015 Diabetes E11.9 ; Irritable bowel syndrome with diarrhea K58.0 and Lumbar radiculopathy M54.16 [place] [id number] [place] [address] 40420- 5956 02 Apr, 2015 Breast screening Z12.39 [place] [address] 92976- 6595 02 Apr, 2015 Bipolar disorder, in partial remission, most recent episode manic F31.73 ; Non compliance with medical treatment Z91.19 and 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 [place] [id number] [place] [address] 82996- 6842 Mar, Edema, unspecified type R60.9 and Type 2 diabetes mellitus with complication E11.8 [place] [id number] [place] [address] 47121- 7314 Mar, Bipolar disorder, in partial remission, most recent episode manic F31.73 ; Non compliance with medical treatment Z91.19 ; 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 and Extreme poverty Z59.5 [place] [address] [place] [address] 33394- 7141 14 Mar, 2015 Bipolar disorder, current episode mixed, unspecified F31.60 ; 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 ; Extreme poverty Z59.5 and Generalized anxiety disorder F41.1 [place] [address] [place] [address] 59385- 2026 Mar, Bipolar disorder, in partial remission, most recent episode manic F31.73 ; 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 and Extreme poverty Z59.5 [place] [address] [place] [address] 14747- 9534 Feb, Bipolar disorder, in partial remission, most recent episode manic F31.73 ; 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 and Extreme poverty Z59.5 [place] [address] [address]- 0856 Feb, Bipolar disorder, in partial remission, most recent episode manic F31.73 ; 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 and Extreme poverty Z59.5 [place] [address] [address]- 8441 Feb, [place] [id number] [place] [address] 25697- 7313 Jan, Type 2 diabetes mellitus with complication E11.8 and Petechiae R23.3 [place] [id number] [place] [address] 644711- 2643 Jan, Type 2 diabetes mellitus with complication E11.8 ; Edema, unspecified R60.9 ; Petechiae R23.3 and Diabetes E11.9 [place] [id number] [place] [address] 02640- 2183 Jan, Bipolar disorder, in partial remission, most recent episode manic F31.73 ; 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 and Extreme poverty Z59.5 [place] [id number] [place] [address] 16327- 2506 Jan, Bipolar disorder, in partial remission, most recent episode manic F31.73 ; 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 and Extreme poverty Z59.5 [place] [address] [place] [address] 73314- 7452 Dec, Bipolar disorder, in partial remission, most recent episode manic F31.73 [place] [address] [place] [address] 76572- 5423 Dec, Edema, due to unspecified malnutrition type, unspecified edema R60.9 and Essential hypertension I10 [place] [address] [place] [address] 20668- 3056 Dec, Bipolar disorder, in partial remission, most recent episode manic F31.73 [place] [id number] [place] [address] 88496- 2560 Nov, Bipolar I disorder, most recent episode (or current) mixed, unspecified 296.60 [facility] [id number] [place] [address] 94627- 7433 Nov, Stress incontinence, female 625.6 ; Back pain 724.5 and Leg pain 729.5 [facility] [id number] [place] [address] 52790- 1491 Nov, Generalized anxiety disorder 300.02 and Bipolar II disorder 296.89 [facility] [id number] [place] [address] 78053- 6411 Nov, Bipolar I disorder, most recent episode (or current) mixed, unspecified 296.60 [facility] [id number] [place] [address] 54433- 0177 Oct, [facility] [id number] [place] [address] 74591- 5840 Oct, [facility] [id number] [place] [address] 85126- 9407 Oct, [facility] [id number] [place] [address] 26478- 0562 Oct, Bipolar I disorder, most recent episode (or current) mixed, unspecified 296.60 [facility] [id number] [place] [address] 49369- 1766 Sep, Diabetes 250.00 [facility] [id number] [place] [address] 50953- 8448 Sep, Bipolar I disorder, most recent episode (or current) mixed, unspecified 296.60 [facility] [id number] [place] [address] [phone]- [phone] Sep, [facility] [id number] [place] [address] [phone] Sep, [facility] [id number] [place] [address] [phone]- [phone] Sep, Bipolar I disorder, most recent episode (or current) mixed, unspecified 296.60 [facility] [id number] [place] [address] [phone]- [phone] Sep, Bipolar I disorder, most recent episode (or current) mixed, unspecified 296.60 [facility] [id number] [place] [address] [id number]- [phone] Sep, [facility] [address] [phone]- [address] Sep, Anxiety 300.00 ; Diabetes 250.00 and Hyperlipidemia 272.4 [place] [address] [phone]- [address]168 Aug, [facility] [id number] [place] [address] [phone]- [phone] Aug, [facility] [id number] [place] [address] 27414- 2669 Aug, [facility] [id number] [place] [address] 27955- 7726 Aug, Bipolar I disorder, most recent episode (or current) mixed, unspecified 296.60 [facility] [id number] [place] [address] 29750- 5008 Aug, Generalized anxiety disorder 300.02 and Bipolar II disorder 296.89 [facility] [id number] [place] [address] 57072- 9939 July, Bipolar I disorder, most recent episode (or current) mixed, unspecified 296.60 [facility] [id number] [place] [address] 55483- 9800 July, Cough 786.2 [facility] [id number] [place] [address] 70717- 7868 July, Bipolar I disorder, most recent episode (or current) mixed, unspecified 296.60 [facility] [id number] [place] [address] 48455- 5588 30 Jun, 2014 Diabetes 250.00 [facility] [address] [facility] [id number] [place] [address]- 0696 14 Jun, 2014 [facility] [place] [facility] [address] [facility] [id number] [place] [address] 2546 13 Jun, 2014 [facility] [address] [facility] [id number] [place] [address]- 1286 24 May, 2014 [facility] [place] [facility] [address] [facility] [id number] [place] [address] 2548 24 May, 2014 [facility] [place] [facility] [address] [facility] [id number] [place] [address]- 4581 10 May, 2014 [facility] [place] [facility] [address] [facility] [id number] [place] [address]- 7249 10 May, 2014 [facility] [place] [facility] [address] [id number] [place] [address] 2156 10 May, 2014 [facility] [place] [facility] [address] [facility] [id number] [place] [address]- 7353 10 May, 2014 [facility] [place] [facility] [address] [id number] [place] [address]- 7616 20 Apr, 2014 [facility] [place] [facility] [address] [facility] [id number] [place] [address]- 5888 20 Apr, 2014 [facility] [place] [facility] [address] [facility] [id number] [place] [address] 2546 11 Apr, 2014 [facility] [place] [facility] [address] [facility] [id number] [place] [address] 2546 11 Apr, 2014 [facility] [place] [facility] [address] [facility] [id number] [place] [address]- 8286 10 Apr, 2014 [facility] [place] [facility] [address] [facility] [id number] [place] [address] 2546 10 Apr, 2014 [facility] [place] [facility] [address] [id number] [place] [address]- 6707 Apr, [facility] [place] [facility] [address] [id number] [place] [address]- 9106 Apr, [facility] [place] [facility] [address] [id number] [place] [address]- 5892 Mar, [facility] [place] [facility] [address] [id number] [place] [address]- 8750 Mar, [facility] [place] [facility] [address] [id number] [place] [address]- 2065 Mar, [facility] [place] [facility] [address] [id number] [place] [address]- 0153 Mar, [facility] [place] [facility] [address] [id number] [place] [address]- 9876 Mar, [facility] [place] [facility] [address] [id number] [place] [address]- 3192 Mar, [facility] [place] [facility] [address] [id number] [place] [address]- 6410 Mar, [facility] [place] [facility] [address] [id number] [place] [address]- 8263 Mar, [facility] [place] [facility] [address] [id number] [place] [address]- 2178 Feb, [facility] [place] [facility] [address] [id number], [place] [address]- 7134 Feb, [facility] [place] [facility] [address] [id number], [place] [address]- 7986 Feb, [facility] [place] [facility] [address] [id number] [place] [address]- 6521 Feb, [facility] [place] [facility] [address] [id number] [place] [address]- 7843 Feb, [facility] [place] [facility] [address] [id number] [place] [address]- 7800 Feb, [facility] [place] [facility] [address] [id number] [place] [address]- 4375 17 Feb, 2014 [facility] [place] [facility] [address] [id number] [place] [address]- 1394 Feb, [facility] [place] [facility] [address] [id number] [place] [address]- 2736 Feb, [facility] [place] [facility] [address] [id number] [place] [address]- 9891 Feb, [facility] [place] [facility] [address] [id number] [place] [address]- 7755 Jan, [facility] [place] [facility] [address] [id number] [place] [address]- 2314 Jan, [facility] [place] [facility] [address] [id number] [place] [address]- 8930 Jan, [facility] [place] [facility] [address] [id number] [place] [address]- 5238 Jan, [facility] [place] [facility] [address] [id number] [place] [address]- 2367 Jan, [facility] [place] [facility] [address] [id number] [place] [address]- 9778 Jan, [facility] [place] [facility] [address] [facility] [id number] [place] [address]- 5305 Jan, [facility] [place] [facility] [address] [id number] [place] [address]- 4039 Jan, [facility] [place] [facility] [address] [id number] [place] [address]- 5954 Jan, [facility] [place] [facility] [address] [id number] [place] [address]- 3512 Jan, [facility] [place] [facility] [address] [id number] [place] [address]- 4024 Jan, [facility] [place] [facility] [address] [id number] [place] [address]- 7904 Jan, [facility] [place] [facility] [address] [id number] [place] [address]- 5001 Jan, [facility] [place] [facility] [address] [id number] [place] [address]- 2217 Jan, [facility] [place] [facility] [address] [id number] [place] [address]- 7881 Jan, [facility] [place] [facility] [address] [id number] [place] [address]- 1314 Dec, [facility] [place] [facility] [address] [id number] [place] [address]- 8247 Dec, [facility] [place] [facility] [address] [id number] [place] [address]- 2769 Dec, [facility] [place] [facility] [address] [id number] [place] [address]- 5028 Dec, [facility] [place] [facility] [address] [id number] [place] [address]- 5011 Dec, [facility] [place] [facility] [address] [id number] [place] [address]- 2274 Dec, [facility] [place] [facility] [address] [id number] [place] [address]- 6140 Dec, [facility] [place] [facility] [address] [id number] [place] [address]- 6980 Dec, [facility] [place] [facility] [address] [id number] [place] [address]- 9560 Nov, [facility] [place] [facility] [address] [id number] [place] [address]- 0819 25 Nov, 2013 [facility] [place] [facility] [address] [id number] [place] [address]- 1962 Nov, [facility] [place] [facility] [address] [id number] [place] [address]- 4382 10 Nov, 2013 [facility] [place] [facility] [address] [id number] [place] [address]- 8982 08 Nov, 2013 [facility] [place] [facility] [address] [id number] [place] [address]- 9398 08 Sep, 2013 [facility] [place] [facility] [address] [id number] [place] [address]- 8676 08 Nov, 2013 [facility] [place] [facility] [address] [id number] [place] [address]- 7875 08 Nov, 2013 [facility] [place] [facility] [address] [id number] [place] [address]- 8069 08 Nov, 2013 [facility] [place] [facility] [address] [id number] [place] [address]- 3793 08 Nov, 2013 [facility] [place] [facility] [address] [id number] [place] [address]- 4717 Nov, 2013 [facility] [place] [facility] [address] [id number] [place] [address]- 4171 04 Nov, 2013 [facility] [place] [facility] [address] [id number] [place] [address]- 4584 03 Nov, 2013 [facility] [place] [facility] [address] [id number] [place] [address]- 9859 Nov, 2013 [facility] [place] [facility] [address] [id number] [place] [address]- 7364 Nov, 2013 [facility] [place] [facility] [address] [id number] [place] [address]- 0607 Oct, [facility] [place] [facility] [address] [id number] [place] [address]- 5326 Oct, [facility] [place] [facility] [address] [id number] [place] [address]- 1471 Oct, [facility] [place] [facility] [address] [id number] [place] [address]- 3186 Oct, [facility] [place] [facility] [address] [id number] [place] [address]- 4303 Oct, [facility] [place] [facility] [address] [id number] [place] [address]- 8511 Oct, [facility] [place] [facility] [address] [id number] [place] [address]- 8183 Oct, [facility] [place] [facility] [address] [id number] [place] [address]- 8526 Oct, [facility] [place] [facility] [address] [id number] [place] [address]- 9277 Oct, [facility] [place] [facility] [address] [id number] [place] [address]- 0173 Oct, [facility] [place] [facility] [address] [id number] [place] [address]- 5471 Oct, [facility] [place] [facility] [address] [id number] [place] [address]- 7940 Oct, [facility] [place] [facility] [address] [id number] [place] [address]- 6886 Oct, [facility] [place] [facility] [address] [id number] [place] [address]- 2103 Oct, [facility] [place] [facility] [address] [id number] [place] [address]- 5311 Sep, [facility] [place] [facility] [address] [id number] [place] [address]- 7617 Sep, [facility] [place] [facility] [address] [id number] [place] [address]- 9767 Sep, [facility] [place] [facility] [address] [id number] [place] [address]- 6268 Sep, [facility] [place] [facility] [address] [id number] [place] [address]- 8835 Sep, [facility] [place] [facility] [address] [id number] [place] [address]- 3389 Sep, [facility] [place] [facility] [address] [id number] [place] [address]- 0009 Sep, [facility] [place] [facility] [address] [id number] [place] [address]- 5054 Sep, [facility] [place] [facility] [address] [id number] [place] [address]- 6518 Aug, [facility] [place] [facility] [address] [id number] [place] [address]- 4403 Aug, [facility] [place] [facility] [address] [id number] [place] [address]- 0196 Aug, [facility] [place] [facility] [address] [id number] [place] [address]- 6321 Aug, [facility] [place] [facility] [address] [id number] [place] [address]- 7345 Aug, [facility] [place] [facility] [address] [id number] [place] [address]- 1073 Aug, [facility] [place] [facility] [address] [id number] [place] [address]- 1483 Aug, [facility] [place] [facility] [address] [id number] [place] [address]- 8378 Aug, [facility] [place] [facility] [address] [id number] [place] [address]- 5271 July, [facility] [place] [facility] [address] [id number] [place] [address]- 4104 July, [facility] [place] [facility] [address] [id number] [place] [address]- 2020 July, [facility] [place] [facility] [address] [id number] [place] [address]- 3241 July, [facility] [place] [facility] [address] [id number] [place] [address]- 1748 July, [facility] [place] [facility] [address] [id number] [place] 6996 July, [facility] [place] [facility] [address] [id number], [place] [address]- 4983 July, [facility] [address] [id number] [place] [address]- 9686 July, [facility] [place] [facility] [address] [id number] [place] [address]- 8419 Jun, [facility] [place] [facility] [address] [id number] [place] [address]- 0816 Jun, [facility] [place] [facility] [address] [id number] [place] [address]- 7763 Jun, [facility] [place] [facility] [address] [id number] [place] [address]- 4264 Jun, [facility] [place] [facility] [address] [id number] [place] [address]- 9789 Jun, [facility] [place] [facility] [address] [id number] [place] [address]- 2669 Jun, [facility] [place] [facility] [address] [id number] [place] [address]- 0963 Jun, [facility] [place] [facility] [address] [id number] [place] [address]- 6217 Jun, [facility] [place] [facility] [address] [id number] [place] [address]- 1362 Jun, [facility] [place] [facility] [address] [id number] [place] [address]- 6902 Jun, [facility] [place] [facility] [address] [id number] [place] [address]- 6970 Jun, [facility] [place] [facility] [address] [id number] [place] [address]- 6386 Jun, [facility] [place] [facility] [address] [id number] [place] [address]- 4405 May, [facility] [place] [facility] [address] [id number] [place] [address]- 8384 May, [facility] [place] [facility] [address] [id number] [place] [address]- 8040 26 May, 2013 [facility] [place] [facility] [address] [id number] [place] [address]- 4678 26 May, 2013 [facility] [place] [facility] [address] [id number] [place] [address]- 3356 13 May, 2013 [facility] [place] [facility] [address] [id number] [place] [address]- 5432 13 May, 2013 [facility] [place] [facility] [address] [id number] [place] [address]- 7601 12 May, 2013 [facility] [place] [facility] [address] [id number] [place] [address]- 0631 12 May, 2013 [facility] [place] [facility] [address] [id number] [place] [address]- 5089 11 May, 2013 [facility] [place] [facility] [address] [id number] [place] [address]- 4112 11 May, 2013 [facility] [place] [facility] [address] [id number] [place] [address]- 7619 11 May, 2013 [facility] [place] [facility] [address] [id number] [place] [address]- 7938 May, [facility] [place] [facility] [address] [id number] [place] [address]- 9050 10 May, 2013 [facility] [place] [facility] [address] [id number] [place] [address]- 7974 May, [facility] [place] [facility] [address] [id number] [place] [address]- 8407 Apr, [facility] [place] [facility] [address] [id number] [place] [address]- 6760 Apr, [facility] [place] [facility] [address] [id number] [place] [address]- 9211 07 Apr, 2013 [facility] [place] [facility] [address] [id number], [place] [address]- 0424 Apr, [facility] [address] [id number] [place] [address]- 9438 Apr, [facility] [place] [facility] [address] [id number] [place] 1340 Apr, [facility] [place] [facility] [address] [id number] [place] [address]- 8816 Mar, [facility] [place] [facility] [address] [id number] [place] [address]- 2072 Mar, [facility] [place] [facility] [address] [id number] [place] [address]- 1331 Mar, [facility] [place] [facility] [address] [id number] [place] [address]- 3937 Mar, [facility] [place] [facility] [address] [id number] [place] [address]- 7663 Mar, [facility] [place] [facility] [address] [id number] [place] [address]- 6792 Mar, [facility] [place] [facility] [address] [id number] [place] [address]- 2158 Mar, [facility] [place] [facility] [address] [id number] [place] [address]- 3860 Mar, [facility] [place] [facility] [address] [id number], [place] [address]- 0472 Mar, [facility] [place] [facility] [address] [id number], [place] [address]- 5899 Mar, [facility] [place] [facility] [address] [id number] [place] [address]- 0373 Mar, [facility] [place] [facility] [address] [id number], [place] [address]- 7833 Mar, [facility] [place] [facility] [address] [id number] [place] [address]- 1849 Mar, [facility] [place] [facility] [address] [id number] [place] [address]- 6726 Mar, [facility] [address] [id number] [place] [address]- 3888 Feb, [facility] [place] [facility] [address] [id number] [place] [address]- 8196 Feb, [facility] [address] [id number] [place] [address]- 9347 Feb, [facility] [place] [facility] [address] [id number] [place] [address]- 5298 Feb, [facility] [address] [id number] [place] [address]- 4227 Feb, [facility] [address] [id number] [place] [address]- 6459 Feb, [facility] [address] [id number] [place] [address]- 6411 Feb, [facility] [address] [id number] [place] [address]- 7569 Feb, [facility] [address] [id number] [place] [address]- 7954 Feb, [facility] [address] [id number] [place] [address]- 1621 Feb, [facility] [place] [facility] [address] [id number] [place] [address]- 0751 Feb, [facility] [place] [facility] [address] [id number] [place] [address]- 5502 Feb, [facility] [place] [facility] [address] [id number] [place] [address]- 9637 Feb, [facility] [place] [facility] [address] [id number] [place] [address]- 4486 Feb, [facility] [place] [facility] [address] [id number] [place] [address]- 2580 Feb, [facility] [place] [facility] [address] [id number] [place] [address]- 1130 05 Feb, 2012 [facility] [place] [facility] [address] [id number] [place] [address]- 2464 24 Dec, 2012 [facility] [place] [facility] [address] [id number] [place] [address]- 0867 24 Dec, 2012 [facility] [place] [facility] [address] [id number] [place] [address]- 1792 16 Dec, 2012 [facility] [place] [facility] [address] [id number] [place] [address]- 1745 16 Dec, 2012 [facility] [place] [facility] [address] [id number] [place] [address]- 9887 16 Dec, 2012 [facility] [place] [facility] [address] [id number] [place] [address]- 6380 16 Dec, 2012 [facility] [place] [facility] [address] [id number], [place] [address] 14 Dec, 2012 [facility] [place] [facility] [address] [id number] [place] [address] 14 Dec, 2012 [facility] [place] [facility] [address] [id number], [place] [address] 10 Dec, 2012 [facility] [place] [facility] [address] [id number], [place] [address] 10 Dec, 2012 [facility] [place] [facility] [address] [id number], [place] [address] 110[address] 10 Dec, 2012 [facility] [place] [facility] [address] [id number], [place] [address] 10 Dec, 2012 [facility] [place] [facility] [address] [id number], [place] [address] 03 Dec, 2012 [facility] [place] [facility] [address] [id number], [place] [address] 25 Nov, 2012 [facility] [place] [facility] [address] [id number] [place] [address] 4657 20 Nov, 2012 [facility] [address] [id number] [place] [address] 1476 18 Nov, 2012 [facility] [place] [facility] [address] [id number] [place] [address] 6[address] 16 Nov, 2012 [facility] [place] [facility] [address] [id number] [place] [address]- 75[address] 12 Nov, 2012 [facility] [place] [facility] [address] [id number] [place] [address] 1283 11 Nov, 2012 [facility] [place] [facility] [address] [id number] [place] [address]- 3273 05 Nov, 2012 [facility] [place] [facility] [address] [id number] [place] [address]- 5163 15 Oct, 2012 [facility] [place] [facility] [address] [id number] [place] [address]881 Oct, [facility] [place] [facility] [address] [id number] [place] [address] 24 Sep, 2012 [facility] [place] [facility] [address] [id number] [place] [address] 9184 Sep, [facility] [place] [facility] [address] [id number] [place] [address]79 Sep, [facility] [place] [facility] [address] [id number] [place] [address]- [address] 17 Sep, 2012 [facility] [place] [facility] [address] [id number] [place] [address]- 7610 15 Sep, 2012 [facility] [place] [facility] [address] [id number] [place] [address] 6[address] Sep, [facility] [place] [facility] [address] [id number] [place] [address]- 9166 Sep, [facility] [place] [facility] [address] [id number] [place] [address] Aug, [facility] [place] [facility] [address] [id number] [place] [address]- 6586 18 Aug, 2012 [facility] [place] [facility] [address] [id number] [place] [address] 4116 16 Aug, 2012 [facility] [place] [facility] [address] [id number] [place] [address]- 2546 Aug, [facility] [place] [facility] [address] [id number] [place] [address]- 1647 Aug, [facility] [place] [facility] [address] [id number] [place] [address] 3237 Aug, [facility] [place] [facility] [address] [id number] [place] [address] 4686 Aug, [facility] [address] [id number] [place] [address] 5[address] Aug, [facility] [address] [id number] [place] [address] 5816 July, [facility] [address] [id number] [place] [address]241 July, [facility] [address] [id number] [place] [address] 1996 July, [facility] [place] [facility] [address] [id number] [place] [id number] July, [facility] [place] [facility] [address] [id number] [place] [address]- 9636 July, [facility] [place] [facility] [address] [id number] [place] [address]- 2546 Jun, [facility] [place] [facility] [address] [id number] [place] [address]- 2546 May, [facility] [place] [facility] [address] [id number] [place] [address]- [address]46 14 May, 2012 [facility] [place] [facility] [address] [id number] [place] [address] May, [facility] [address] [id number] [place] [address]- 4477 Apr, [facility] [place] [facility] [address] [id number] [place] [address]- 8260 Apr, [facility] [place] [facility] [address] [facility] [id number] [place] [address]- 8775 Apr, [facility] [place] [facility] [address] [id number] [place] [address]- 2659 Mar, [facility] [address] [id number] [place] [address] 1884 Mar, [facility] [address] [id number] [place] [address]- 0900 Mar, [facility] [address] [id number] [place] [address]- 4106 Mar, [facility] [place] [facility] [address] [id number] [place] [address]- 8753 Mar, [facility] [address] [id number] [place] [address]- 9574 Mar, [facility] [address] [facility] [id number] [place] [address]- 5447 Mar, [facility] [address] [id number] [place] [address]- 2432 Feb, [facility] [place] [facility] [address] [id number] [place] [address]- 4432 31 Feb, 2012 [facility] [place] [facility] [address] [id number] [place] [address]- 3792 18 Feb, 2012 [facility] [place] [facility] [address] [id number] [place] [address] 18 Feb, 2012 [facility] [place] [facility] [address] [facility] [id number] [place] [address]- 0977 17 Feb, 2012 [facility] [place] [facility] [address] [id number] [place] [address]- 5392 Feb, [facility] [address] [id number] [place] [address]- 6263 Feb, [facility] [place] [facility] [address] [id number] [place] [address] 0874 Feb, [facility] [address] [id number] [place] [address]- 5787 Jan, [facility] [place] [facility] [address] [id number] [place] [address] 1658 Jan, [facility] [address] [id number] [place] [address]- 0641 Jan, [facility] [address] [id number] [place] [address]- 0265 Jan, [facility] [place] [facility] [address] [id number] [place] [address]- 4807 Jan, [facility] [address] [id number] [place] [address]- 5272 Jan, [facility] [place] [facility] [address] [address] [id number] [place] [address] Jan, [facility] [address] [facility] [id number] [place] [address] Jan, [facility] [place] [facility] [address] [id number] [place] [address] Jan, [facility] [place] [facility] [address] [id number] [place] [address] Jan, [facility] [place] [facility] [address] [id number] [place] [address] Jan, [facility] [place] [facility] [address] [facility] [id number] [place] [address] Jan, [facility] [place] [facility] [address] [facility] [id number] [place] [address] Jan, [facility] [place] [facility] [address] [id number] [place] [address] Jan, [facility] [place] [facility] [address] [id number] [place] [address] Jan, [facility] [place] [facility] [address] [id number] [place] [address] Jan, [facility] [place] [facility] [address] [id number] [place] [address] Dec, [facility] [place] [facility] [address] [id number] [place] [address]708 Dec, [facility] [place] [facility] [address] [id number] [place] [address] Dec, [facility] [place] [facility] [address] [facility] [id number] [place] [address] Dec, [facility] [place] [facility] [address] [id number], [place] [address] Dec, [facility] [place] [facility] [address] [facility] [id number] [place] [address] Dec, [facility] [place] [facility] [address] [facility] [id number], [place] [address] Dec, [facility] [place] [facility] [address] [facility] [id number], [place] [address] Dec, [facility] [place] [facility] [address] [id number], [place] [address] 08 Dec, 2011 [facility] [place] [facility] [address] [id number], [place] [address] 05 Dec, 2011 [facility] [place] [facility] [address] [id number], [place] [address] 18 Nov, 2011 [facility] [place] [facility] [address] [facility] [id number], [place] [address] 13 Nov, 2011 [facility] [place] [facility] [address] [id number], [place] [address] Oct, [facility] [place] [facility] [address] [id number] [place] [address] 6960 Oct, [facility] [place] [facility] [address] [id number] [place] [address] 2965 Oct, [facility] [place] [facility] [address] [id number] [place] [address]96 Oct, [facility] [place] [facility] [address] [id number] [place] [address] 2674 Oct, [facility] [place] [facility] [address] [id number] [place] [address] 6414 Oct, [facility] [place] [facility] [address] [id number] [place] [address] 9795 Oct, [facility] [place] [facility] [address] [id number] [place] [address] Sep, [facility] [place] [facility] [address] [id number] [place] [address] 9545 Aug, [facility] [place] [facility] [address] [id number] [place] [address] Aug, [facility] [place] [facility] [address] [id number] [place] [address] 6697 Aug, [facility] [place] [facility] [address] [id number] [place] [address]133 Aug, [facility] [place] [facility] [address] [id number] [place] [address] 4214 Aug, [facility] [place] [facility] [address] [id number] [place] [address] 6527 July, [facility] [place] [facility] [address] [id number] [place] [address]32 July, [facility] [place] [facility] [address] [id number] [place] [address] 9878 July, [facility] [place] [facility] [address] [id number] [place] [address] 3186 19 Jun, 2011 [facility] [place] [facility] [address] [id number] [place] [address]326 05 Jun, 2011 [facility] [place] [facility] [address] [id number] [place] [address] 2546 04 Jun, 2011 [facility] [place] [facility] [address] [id number] [place] [address] 7936 Jun, [facility] [place] [facility] [address] [id number] [place] [address] 30 May, 2011 [facility] [place] [facility] [address] [id number] [place] [address] 0397 30 May, 2011 [facility] [place] [facility] [address] [id number] [place] [address]448 29 May, 2011 [facility] [place] [facility] [address] [id number] [place] [address]- 6545 28 May, 2011 [facility] [place] [facility] [address] [id number] [place] [address]493 23 May, 2011 [facility] [place] [facility] [address] [id number] [place] [address]- 8587 22 May, 2011 [facility] [place] [facility] [address] [id number] [place] [address] 2017 May, [facility] [place] [facility] [address] [id number] [place] [address] 6573 May, [facility] [place] [facility] [address] [id number] [place] [address]- 2286 08 May, 2011 [facility] [place] [facility] [address] [id number] [place] [address]- 7906 05 May, 2011 [facility] [place] [facility] [address] [id number] [place] [address]- 7546 02 May, 2011 [facility] [place] [facility] [address] [id number] [place] [address] May, [facility] [place] [facility] [address] [id number] [place] [address] 0408 Mar, [facility] [place] [facility] [address] [id number] [place] [address] 0591 Mar, [facility] [place] [facility] [address] [id number] [place] [address]- 0342 28 Feb, 2011 [facility] [place] [facility] [address] [id number] [place] [address]- 8514 Feb, [facility] [place] [facility] [address] [id number] [place] [address] 5842 Feb, [facility] [place] [facility] [address] [id number] [place] [address]- 5516 15 Feb, 2011 [facility] [place] [facility] [address] [id number] [place] [address] 2650 Feb, [facility] [place] [facility] [address] [id number] [place] [address]- 0183 Feb, [facility] [place] [facility] [address] [id number] [place] [address]- 2112 Feb, [facility] [place] [facility] [address] [id number] [place] [address]- 8909 Jan, [facility] [place] [facility] [address] [id number] [place] [address]- 0541 Jan, [facility] [place] [facility] [address] [id number], [place] [address]336 Jan, [facility] [place] [facility] [address] [id number] [place] [address]- 7784 17 Jan, 2011 [facility] [place] [facility] [address] [id number] [place] [address]- 3209 07 Jan, 2011 [facility] [place] [facility] [address] [id number] [place] [address]- 5709 Jan, [facility] [place] [facility] [address] [id number] [place] [address]- 8514 27 Dec, 2010 [facility] [address] [id number] [place] [address]- 8931 27 Dec, 2010 [facility] [place] [facility] [address] [id number] [place] [address]- 5851 11 Dec, 2010 [facility] [place] [facility] [address] [id number] [place] [address]- 2791 July, [facility] [place] [facility] [address] [id number] [place] [address]- 8800 July, [facility] [place] [facility] [address] [id number] [place] [address]- 9460 Feb, [facility] [place] [facility] [address] [id number] [place] [address]- 1855 Jan, [facility] [place] [facility] [address] [id number] [place] [address]- 7566 Dec, [facility] [place] [facility] [address] [id number] [place] [address]- 0314 Dec, [facility] [place] [facility] [address] [id number] [place] [address]- 4122 15 Sep, 2009 [facility] [place] [facility] [address] [facility] [id number] [place] [address]- 2411 Aug, [facility] [place] [facility] [address] [id number] [place] [address]- 6691 Jun, [facility] [place] [facility] [address] [id number] [place] [address]- 9524 Jun, [facility] [place] [facility] [address] [id number] [place] [address]- 5360 Jan, [facility] [place] [facility] [address] [id number] [place] [address]- 8394 Jan, [facility] [place] [facility] [address] [id number] [place] [address]- 3811 05 Jan, 2009 [facility] [id number] [place] [address] 8394 Jan, [facility] [id number], [place] [address] 4853 Dec, [facility] [id number] [place] [address]- 1006 Dec, [facility] [address] [id number] [address]245 Dec, [facility] [id number] [address] Nov, [facility] [id number] [place] [address]- [address]79 July, [facility] [address] [id number], [place] [address] 8143 May, [facility] [id number], [place] [address] 3422 Apr, [facility] [id number], [place] [address]- 1498 Feb, [facility] [id number], [place] [address] 6162 Dec, IMMUNIZATIONS No Known Immunizations SOCIAL HISTORY Never Assessed REASON FOR VISIT Triage - blood sugar CBrumbackRN PLAN OF CARE VITAL SIGNS MEDICATIONS Unknown Medications RESULTS Name Result Date Reference Range GLUCOSE FINGERSTICK (IN HOUSE) 2017-03-17 GLU FINGERSTICK 200 PC 30 min Lot # [id number] Exp date 06/12/2017 PROCEDURES Procedure Date Ordered Result Body Site GLUCOSE BLOOD TEST Mar 17, 2017 INSTRUCTIONS MEDICATIONS ADMINISTERED No Known Medications [...]
--- OUTSIDE RECORDS SUMMARY | 2018-06-14 15:03 | XMS REPORT ---
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 Name Role Phone BEVERLY TAO Unavailable PROBLEMS Type Condition ICD9-CM Code WID70-AQ Code Onset Dates Condition Status SNOMED Code Problem Diabetes E11.9 Active 211325005 Problem Lumbar radiculopathy M54.16 Active 853780417 Problem Irritable bowel syndrome with diarrhea K58.0 Active 772957135 Problem New daily persistent headache G44.52 Active 848976965 Problem Acute bilateral low back pain with right-sided sciatica M54.41 Active 142356942 Problem FDC current 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 Z79.891 Active 540351980 Problem Bipolar 1 disorder F31.9 Active 810641744 Problem Hyperlipidemia, unspecified E78.5 Active 03187284 Problem Type 2 diabetes mellitus with complication E11.8 Active 977459086 Problem Post laminectomy syndrome M96.1 Active 86291419 Problem Eye exam normal Z01.00 Active 152106767 Problem Bipolar disorder, in partial remission, most recent episode manic F31.73 Active 89248269 Problem Extreme poverty Z59.5 Active 96244023 Problem Obesity, unspecified 278.00 Active 615215955 Problem 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 Active 72772236 Problem Hyperlipidemia 272.4 Active 68717505 Problem Non compliance with medical treatment Z91.19 Active 9800708 ALLERGIES Substance Reaction Event Type Date Status Zithromax Chest pain Drug Allergy Mar, Active Prednisone elevated blood sugars Drug Allergy Mar, Active ENCOUNTERS Encounter Location Date Diagnosis [facility] [address] [facility] [id number] [address] Nov, [facility] [address] [facility] [id number], [place] [address] Oct, [facility] [address] [address] Oct, [facility] [address] [address] Oct, [facility] [address] [place] [address] 43824- 8298 Aug, Type 2 diabetes mellitus with complication E11.8 [facility] [address] [id number] [place] [address] 76739- 9609 Aug, [facility] [address] [place] [address] 91672- 4628 Aug, Bipolar 1 disorder F31.9 ; 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 and Extreme poverty Z59.5 [place] [address] [address] Aug, 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 and Bipolar disorder, in partial remission, most recent episode manic F31.73 [facility] [address] [place] [address] 81863- 7857 Aug, Bipolar 1 disorder F31.9 [facility] [address] [place] [address] 85700- 5309 Aug, [facility] [address] [address] Aug, [facility] [address] [address] 0[address] Aug, Bipolar 1 disorder F31.9 ; 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 and Extreme poverty Z59.5 [facility] [address] [address] July, Type 2 diabetes mellitus with complication E11.8 [facility] [address] [address] July, Bipolar 1 disorder F31.9 ; 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 and Extreme poverty Z59.5 [facility] [id number] [place] [address] 44318- 3492 Jun, Bipolar 1 disorder F31.9 ; 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 and Extreme poverty Z59.5 [facility] [id number] [place] [address] 16140- 4160 Jun, Bipolar 1 disorder F31.9 ; 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 and Extreme poverty Z59.5 [facility] [address] 98491- 2815 Jun, Bipolar 1 disorder F31.9 ; 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 and Extreme poverty Z59.5 [facility] [address] 198246- 8014 May, Urinary tract infection without hematuria, site unspecified N39.0 [facility] [address] 54806- 4550 May, Bipolar 1 disorder F31.9 ; 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 and Extreme poverty Z59.5 [facility] [id number] [place] [address] 86901- 8084 Apr, Diabetes E11.9 and Breast cancer screening Z12.31 [facility] [id number] [place] [address] 78545- 2407 20 Apr, 2017 Bipolar 1 disorder F31.9 and 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 [facility] [id number] [place] [address] 95824- 7773 Mar, Bipolar 1 disorder F31.9 ; 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 and Extreme poverty Z59.5 [facility] [id number] [place] [address] 69404- 2576 Mar, New daily persistent headache G44.52 ; Leg pain 729.5 and History of carpal tunnel release Z98.890 [facility] [id number] [place] [address] 65481- 6645 Mar, Hyperlipidemia, unspecified E78.5 [facility] [id number] [place] [address] 10617- 2709 Mar, Bipolar 1 disorder F31.9 ; 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9 and Borderline intellectual functioning R41.[address] 59555- 1934 Jan, Bipolar 1 disorder F31.9 ; 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 and Extreme poverty Z59.[address] 66925- 0404 Dec, Diabetes E11.[address] 15391- 2839 Dec, Diabetes E11.9 and Encounter for immunization Z23 [address] 52995- 6909 Dec, Bipolar 1 disorder F31.9 ; 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 and Extreme poverty Z59.[address] 03003- 3955 Dec, Back pain M54.9 [facility] [address] [address] Nov, [facility] [address] [place] [address] 36751- 3659 Nov, Bipolar 1 disorder F31.9 ; 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 and Extreme poverty Z59.5 [facility] [address] [place] [address] 11925- 6657 Nov, Bipolar 1 disorder F31.9 ; 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 and Extreme poverty Z59.5 [facility] [address] [place] [address] 91083- 0187 Oct, 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 and Bipolar 1 disorder F31.9 [facility] [address] [place] [address] 13262- 0041 Oct, Bipolar 1 disorder F31.9 ; 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 and Extreme poverty Z59.5 [facility] [address] [place] [address] 63771- 9610 Oct, Back pain M54.9 [facility] [address] [place] [address] 10533- 5835 Oct, 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 and Type 2 diabetes mellitus with complication E11.8 [facility] [address] [address] 2654 Sep, Bipolar 1 disorder F31.9 ; 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 and Extreme poverty Z59.5 [facility] [address], [place] [address]- 1812 Sep, 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 and Bipolar 1 disorder F31.9 [facility] [address] [address]- 8457 Sep, Bipolar 1 disorder F31.9 ; 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 and Extreme poverty Z59.5 [facility] [id number] [address]- [address]12 Aug, Diabetes E11.9 ; Hyperlipidemia, unspecified E78.5 and Lumbar radiculopathy M54.16 [facility] [id number] [place] [address] 46632- 6960 15 Aug, 2016 Bipolar 1 disorder F31.9 ; 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 and Extreme poverty Z59.5 [facility] [id number] [place] [address] 09414- 3518 Aug, [facility] [id number] [place] [address] 86865- 0002 Aug, [facility] [id number] [place] [address] 03915- 3154 Aug, [facility] [id number] [place] [address] 41975- 2983 July, [facility] [id number] [place] [address] 85042- 4992 July, Acute bilateral low back pain with right-sided sciatica M54.41 [facility] [id number] [place] [address] 59866- 8414 July, Bipolar 1 disorder F31.9 ; 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 and Extreme poverty Z59.5 [facility] [id number] [place] [address] 95870- 6652 July, Back pain M54.9 and Diabetes E11.9 [facility] [place] [address] [place] [address] 56558- 7295 Jun, Bipolar 1 disorder F31.9 ; 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 and Extreme poverty Z59.5 [facility] [id number] [place] [address] 05446- 8691 Jun, Bipolar 1 disorder F31.9 ; 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 and Extreme poverty Z59.5 [facility] [id number] [place] [address] 03950- 8219 May, Visit for pelvic exam Z01.419 ; Acute vaginitis N76.0 and Diabetes E11.9 [facility] [address] 97427- 9734 16 May, 2016 Bipolar 1 disorder F31.9 ; 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 and Extreme poverty Z59.5 [facility] [address] 41910- 3841 08 May, 2016 [place] [place] [address] 19356- 7221 May, [facility] [address] 72679- 3501 02 May, 2016 Bipolar 1 disorder F31.9 ; 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 and Extreme poverty Z59.5 [facility] [address] 86131- 6173 May, Hyperlipidemia, unspecified E78.5 [place] [address] 23178- 2672 13 Apr, 2016 Breast cancer screening Z12.39 [facility] [address] 96219- 3642 Mar, [facility] [place] [address] 01334- 3742 Mar, Bipolar disorder, current episode mixed, unspecified F31.60 [facility] [address] 99758- 6530 Mar, Bipolar 1 disorder F31.9 ; 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 and Extreme poverty Z59.5 [facility] [address] 44240- 4523 Feb, Acute nasopharyngitis J00 [facility] [address] 56887- 5462 Feb, Dental examination Z01.20 [facility] [id number] [place] [address] 18520- 5863 21 Feb, 2016 Dental cavities K02.9 and Chronic periodontitis, unspecified K05.30 [facility] [address] 61634- 3112 13 Feb, 2016 Low back pain M54.5 and Extreme poverty Z59.[address] 73364- 5376 Feb, [address] 72328- 2974 05 Feb, 2016 Routine gynecological examination V72.31 ; Breast cancer screening Z12.39 and Herpes simplex type [address] 47580- 2478 02 Feb, 2016 Diabetes E11.[address] 81253- 6387 Feb, Encounter for dental examination and cleaning without abnormal findings Z01.20 [place] [id number] [place] [address] 29922- 7983 22 Jan, 2016 Hyperlipidemia, unspecified E78.[address] 37490- 4655 22 Jan, 2016 Bipolar 1 disorder F31.9 ; 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 and Extreme poverty Z59.5 [facility] [id number] [place] [address] 41643- 5864 18 Jan, 2016 Diabetes E11.9 [facility] [address] 85645- 8719 17 Jan, 2016 Diabetes E11.[address] 48729- 8810 14 Dec, 2015 Bipolar 1 disorder F31.9 ; 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 and Extreme poverty Z59.[address] 29789- 2253 Dec, Bipolar disorder, current episode mixed, unspecified F31.60 and 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 [facility] [id number] [place] [address] 89077- 3310 Nov, Bipolar 1 disorder F31.9 ; 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 ; Extreme poverty Z59.5 and Non compliance with medical treatment Z91.19 [facility] [id number] [place] [address] 02848- 0182 Oct, [facility] [id number] [place] [address] 93674- 0001 Oct, Dental caries K02.9 [facility] [id number] [place] [address] 19671- 5414 Oct, Low back pain M54.5 and Other chronic pain G89.29 [facility] [id number] [place] [address] 28063- 5077 Oct, Bipolar 1 disorder F31.9 ; 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 ; Extreme poverty Z59.5 and Non compliance with medical treatment Z91.19 [facility] [id number] [place] [address] 51762- 7553 Oct, [facility] [id number] [place] [address] 32509- 9892 Oct, [facility] [id number] [place] [address] 79886- 8772 Oct, Dental examination Z01.20 [facility] [id number] [place] [address] 14706- 9843 Oct, Bipolar 1 disorder F31.9 ; 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 ; Extreme poverty Z59.5 and Non compliance with medical treatment Z91.19 [facility] [place] [address] [place] [address] 76448- 1853 Oct, [facility] [id number] [place] [address] 28103- 1968 Sep, Type 2 diabetes mellitus with complication E11.8 [facility] [address], [place] [address]- 4454 Sep, Bipolar disorder, current episode mixed, unspecified F31.60 [facility] [address], [place] [address]- 8525 Sep, Bipolar disorder, current episode mixed, unspecified F31.60 [facility] [address] [place] [address] 46725- 5910 Sep, Bipolar disorder, in partial remission, most recent episode manic F31.73 ; 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 ; Extreme poverty Z59.5 and Non compliance with medical treatment Z91.19 [facility] [place] [address], [place] [address]- 6040 Aug, Bipolar disorder, in partial remission, most recent episode manic F31.73 ; 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 ; Extreme poverty Z59.5 and Non compliance with medical treatment Z91.19 [facility] [address], [place] [address]- 5279 Aug, Bipolar disorder, in partial remission, most recent episode manic F31.73 ; 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 ; Extreme poverty Z59.5 and Non compliance with medical treatment Z91.19 [facility] [address], [place] [address]- 0649 Aug, [facility] [address] [place] [address] 76893- 1711 July, Bipolar disorder, in partial remission, most recent episode manic F31.73 ; 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 ; Extreme poverty Z59.5 and Non compliance with medical treatment Z91.19 [facility] [address] [id number], [place] [address]- 7036 July, Bipolar disorder, current episode mixed, unspecified F31.60 [facility] [address], [place] [address]- 7683 July, Bipolar disorder, in partial remission, most recent episode manic F31.73 ; 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 ; Extreme poverty Z59.5 and Non compliance with medical treatment Z91.19 [facility] [address] [place] [address] 90457- 0074 05 Jul, 2015 FDC current 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 Z79.891 and Chronic pain G89.29 [facility] [id number] [place] [address] 80091- 6041 Jun, FDC current 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 Z79.891 and Bipolar 1 disorder F31.9 [facility] [address] 67871- 3581 Jun, [facility] [id number] [place] [address] 26752- 2938 Jun, [facility] [id number] [place] [address] 04562- 7583 Jun, [facility] [id number] [place] [address] 12364- 2615 Jun, Bipolar disorder, in partial remission, most recent episode manic F31.73 ; 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 and Non compliance with medical treatment Z91.19 [facility] [place] [address] [place] [address] 01963- 2311 May, Bipolar disorder, in partial remission, most recent episode manic F31.73 ; 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 and Non compliance with medical treatment Z91.19 [facility] [place] [id number] [place] [address] 72066- 0110 May, Bipolar disorder, in partial remission, most recent episode manic F31.73 [facility] [id number] [place] [address] 53142- 5541 May, Diabetes E11.9 and Chronic pain G89.29 [facility] [id number] [place] [address] 58191- 7378 May, [facility] [place] [address] [place] [address] 46427- 3250 May, Bipolar disorder, in partial remission, most recent episode manic F31.73 ; Non compliance with medical treatment Z91.19 and 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 [facility] [id number] [place] [address] 61728- 9730 May, Type 2 diabetes mellitus with complication E11.8 and Back pain M54.9 [facility] [id number] [place] [address] 59402- 6691 May, Bipolar disorder, in partial remission, most recent episode manic F31.73 and 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 [facility] [id number] [place] [address] 15829- 4529 24 Apr, 2015 [facility] [id number] [place] [address] 10383- 3345 Apr, [facility] [id number] [place] [address] 95346- 1695 Apr, [facility] [id number] [place] [address] 30168- 8030 09 Apr, 2015 Diabetes E11.9 ; Irritable bowel syndrome with diarrhea K58.0 and Lumbar radiculopathy M54.16 [facility] [id number] [place] [address] 51127- 1752 Apr, Breast screening Z12.39 [facility] [id number] [place] [address] 16602- 2977 Apr, Bipolar disorder, in partial remission, most recent episode manic F31.73 ; Non compliance with medical treatment Z91.19 and 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 [facility] [id number] [place] [address] 97895- 4276 Mar, Edema, unspecified type R60.9 and Type 2 diabetes mellitus with complication E11.8 [facility] [place] [address] [place] [address]- 6642 20 Mar, 2015 Bipolar disorder, in partial remission, most recent episode manic F31.73 ; Non compliance with medical treatment Z91.19 ; 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 and Extreme poverty Z59.5 [facility] [id number] [place] [address] 07482- 5145 14 Mar, 2015 Bipolar disorder, current episode mixed, unspecified F31.60 ; 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 ; Extreme poverty Z59.5 and Generalized anxiety disorder F41.1 [facility] [id number] [place] [address] 25471- 2126 12 Mar, 2015 Bipolar disorder, in partial remission, most recent episode manic F31.73 ; 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 and Extreme poverty Z59.5 [facility] [id number] [place] [address] 82093- 7021 Feb, Bipolar disorder, in partial remission, most recent episode manic F31.73 ; 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 and Extreme poverty Z59.5 [facility] [id number] [place] [address] 08224- 5872 Feb, Bipolar disorder, in partial remission, most recent episode manic F31.73 ; 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 and Extreme poverty Z59.5 [facility] [id number] [place] [address] 00403- 7784 Feb, [facility] [id number] [place] [address] 75388- 7295 Jan, Type 2 diabetes mellitus with complication E11.8 and Petechiae R23.3 [facility] [id number] [place] [address] 22429- 3935 Jan, Type 2 diabetes mellitus with complication E11.8 ; Edema, unspecified R60.9 ; Petechiae R23.3 and Diabetes E11.9 [facility] [id number] [place] [address] 54487- 4436 Jan, Bipolar disorder, in partial remission, most recent episode manic F31.73 ; 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 and Extreme poverty Z59.5 [facility] [id number] [place] [address] 07172- 5041 Jan, Bipolar disorder, in partial remission, most recent episode manic F31.73 ; 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 and Extreme poverty Z59.5 [facility] [address] 82567- 1260 Dec, Bipolar disorder, in partial remission, most recent episode manic F31.73 [facility] [address] 24717- 3724 Dec, Edema, due to unspecified malnutrition type, unspecified edema R60.9 and Essential hypertension I10 [facility] [address] 12702- 2792 Dec, Bipolar disorder, in partial remission, most recent episode manic F31.73 [facility] [address] 91167- 7271 Nov, Bipolar I disorder, most recent episode (or current) mixed, unspecified 296.60 [facility] [address] 22897- 8769 Nov, Stress incontinence, female 625.6 ; Back pain 724.5 and Leg pain 729.5 [facility] [address] 76662- 7625 Nov, Generalized anxiety disorder 300.02 and Bipolar II disorder 296.89 [facility] [id number] [place] [address] 36199- 0613 Nov, Bipolar I disorder, most recent episode (or current) mixed, unspecified 296.60 [facility] [address] 33038- 3609 Oct, [place] [address] 67430- 3104 Oct, [facility] [place] [address] [address]- 8186 Oct, [facility] [id number] [place] [address] 954192- 5043 Oct, Bipolar I disorder, most recent episode (or current) mixed, unspecified 296.60 [facility] [id number] [place] [address] 04988- 5181 Sep, Diabetes 250.00 [facility] [id number] [place] [address] 83224- 1860 Sep, Bipolar I disorder, most recent episode (or current) mixed, unspecified 296.60 [facility] [id number] [place] [address] 13612443- 3936 Sep, [facility] [id number] [place] [address] 45413- 9370 Sep, [facility] [id number] [place] [address] 02186- 3126 Sep, Bipolar I disorder, most recent episode (or current) mixed, unspecified 296.60 [facility] [id number] [place] [address] 46090- 4755 Sep, Bipolar I disorder, most recent episode (or current) mixed, unspecified 296.60 [facility] [id number] [place] [address] 85289- 9795 Sep, [facility] [id number] [place] [address] 55592- 6704 Sep, Anxiety 300.00 ; Diabetes 250.00 and Hyperlipidemia 272.4 [facility] [id number] [place] [address] 383498- 0027 Aug, [facility] [id number] [place] [address] [id number]- 8109 Aug, [facility] [id number] [place] [address] 095803- 2331 Aug, [facility] [id number] 2841 Aug, Bipolar I disorder, most recent episode (or current) mixed, unspecified 296.60 [facility] [address] [address]- 4176 Aug, Generalized anxiety disorder 300.02 and Bipolar II disorder 296.89 [facility] [id number] [place] [address] 868836- 3967 July, Bipolar I disorder, most recent episode (or current) mixed, unspecified 296.60 [facility] [id number] [place] [address] July, Cough 786.2 [facility] [id number] [address] July, Bipolar I disorder, most recent episode (or current) mixed, unspecified 296.60 [facility] [id number] [address] 30 Jun, 2014 Diabetes 250.00 [facility] [id number] [address] 14 Jun, 2014 [facility] [id number] [id number] [address] Jun, [facility] [id number] [address] May, [facility] [id number] [address] 9[address] May, [facility] [id number] [address] 7[address] May, [facility] [id number] [address] 0[address] May, [facility] [id number] [address] 1346 May, [facility] [address] [facility] [id number] [place] [address] May, [facility] [place] [facility] [address] [id number] [place] [address] Apr, 2014 [facility] [place] [facility] [address] [id number] [place] [address]- 3196 Apr, 2014 [facility] [place] [facility] [address] [id number] [place] [address]- 2596 Apr, 2014 [facility] [place] [facility] [address] [id number] [place] [address]- 4971 Apr, 2014 [facility] [place] [facility] [address] [id number] [place] [address]- 8527 Apr, [facility] [place] [facility] [address] [facility] [id number] [place] [address]- 9722 Apr, [facility] [place] [facility] [address] [facility] [id number] [place] [address]- 1584 Apr, [facility] [place] [facility] [address] [id number] [place] [address]- 3323 Apr, [facility] [place] [facility] [address] [facility] [id number] [place] [address]- 8515 Mar, [facility] [place] [facility] [address] [facility] [id number] [place] [address]- 5840 Mar, [facility] [place] [facility] [address] [id number] [address] 9254 Mar, [facility] [place] [facility] [address] [id number] [place] [address]- 6192 Mar, [facility] [place] [facility] [address] [id number] [place] [address]- 7304 Mar, [facility] [place] [facility] [address] [id number] [place] [address]- 9895 Mar, [facility] [place] [facility] [address] [id number] [address] 1648 Mar, [facility] [place] [facility] [address] [id number] [place] [address]- 6029 Mar, [facility] [place] [facility] [address] [id number] [place] [address]- 0520 Feb, [facility] [place] [facility] [address] [id number] [place] [address]- 9418 Feb, [facility] [place] [facility] [address] [id number] [place] [address]- 8902 Feb, [facility] [place] [facility] [address] [id number] [place] [address]- 9773 Feb, [facility] [place] [facility] [address] [id number] [place] [address]- 5894 Feb, [facility] [place] [facility] [address] [id number] [place] [address]- 1120 Feb, [facility] [place] [facility] [address] [id number] [place] [address]- 8191 Feb, [facility] [place] [facility] [address] [id number] [place] [address]- 2426 Feb, [facility] [place] [facility] [address] [id number] [place] [address]- 9075 Feb, [facility] [place] [facility] [address] [id number] [place] [address]- 9306 Feb, [facility] [place] [facility] [address] [id number] [place] [address]- 1007 Jan, [facility] [place] [facility] [address] [id number] [place] [address]- 7302 Jan, [facility] [place] [facility] [address] [id number] [place] [address]- 8809 Jan, [facility] [place] [facility] [address] [id number] [place] [address]- 6265 Jan, [facility] [place] [facility] [address] [id number] [place] [address]- 6511 Jan, [facility] [place] [facility] [address] [id number] [place] [address]- 1110 Jan, [facility] [place] [facility] [address] [id number] [place] [address]- 7491 Jan, [facility] [place] [facility] [address] [id number] [place] [address]- 3428 Jan, [facility] [place] [facility] [address] [id number] [place] [address]- 0067 Jan, [facility] [place] [facility] [address] [id number] [place] [address]- 1613 Jan, [facility] [place] [facility] [address] [id number] [place] [address]- 0501 Jan, [facility] [place] [facility] [address] [id number] [place] [address]- 0401 Jan, [facility] [place] [facility] [address] [id number] [place] [address]- 1186 Jan, [facility] [place] [facility] [address] [id number] [place] [address]- 1106 Jan, [facility] [place] [facility] [address] [id number] [place] [address]- 0888 Jan, [facility] [place] [facility] [address] [id number] [place] [address]- 7658 Dec, [facility] [place] [facility] [address] [id number] [place] [address]- 3364 Dec, [facility] [place] [facility] [address] [id number] [place] [address]- 9808 Dec, [facility] [place] [facility] [address] [id number] [place] [address] Dec, [facility] [place] [facility] [address] [id number] [place] [address]- 9076 Dec, [facility] [place] [facility] [address] [id number] [place] [address]- 9914 09 Dec, 2013 [facility] [place] [facility] [address] [id number] [place] [address]- 3489 Dec, 2013 [facility] [place] [facility] [address] [id number] [place] [address]- 9647 Dec, 2013 [facility] [place] [facility] [address] [id number] [place] [address]- 1434 25 Nov, 2013 [facility] [place] [facility] [address] [id number] [place] [address]- 7723 25 Nov, 2013 [facility] [place] [facility] [address] [id number] [place] [address]- 2973 10 Nov, 2013 [facility] [place] [facility] [address] [id number] [place] [address]- 9084 10 Nov, 2013 [facility] [place] [facility] [address] [id number] [place] [address]- 2642 08 Nov, 2013 [facility] [place] [facility] [address] [id number] [place] [address]- 1203 08 Sep, 2013 [facility] [place] [facility] [address] [id number] [place] [address]- 8972 08 Sep, 2013 [facility] [place] [facility] [address] [id number], [place] [address]- 8281 08 Sep, 2013 [facility] [place] [facility] [address] [id number], [place] [address]- 6379 08 Sep, 2013 [facility] [place] [facility] [address] [id number] [place] [address]- 2697 08 Sep, 2013 [facility] [place] [facility] [address] [id number], [place] [address]- 4843 04 Sep, 2013 [facility] [place] [facility] [address] [id number] [place] [address]- 8454 04 Sep, 2013 [facility] [place] [facility] [address] [id number] [place] [address]- 9285 Nov, [facility] [place] [facility] [address] [id number] [place] [address]- 0985 Nov, [facility] [place] [facility] [address] [id number] [place] [address]- 0927 Nov, [facility] [place] [facility] [address] [id number] [place] [address]- 2828 Oct, [facility] [place] [facility] [address] [id number] [place] [address]- 1899 Oct, [facility] [place] [facility] [address] [id number] [place] [address]- 3154 Oct, [facility] [place] [facility] [address] [id number] [place] [address]- 5265 Oct, [facility] [place] [facility] [address] [id number] [place] [address]- 1305 Oct, [facility] [place] [facility] [address] [id number] [place] [address]- 4850 Oct, [facility] [place] [facility] [address] [id number] [place] [address]- 9790 Oct, [facility] [place] [facility] [address] [id number] [place] [address]- 0738 Oct, [facility] [place] [facility] [address] [id number] [place] [address]- 5819 Oct, [facility] [place] [facility] [address] [id number] [place] [address]- 4524 Oct, [facility] [place] [facility] [address] [id number] [place] [address]- 6955 Oct, [facility] [place] [facility] [address] [id number] [place] [address]- 1505 Oct, [facility] [place] [facility] [address] [id number] [place] [address]- 0180 Oct, [facility] [place] [facility] [address] [id number] [place] [address]- 1652 Oct, [facility] [place] [facility] [address] [id number] [place] [address]- 7266 Sep, [facility] [place] [facility] [address] [id number] [place] [address]- 7787 Sep, [facility] [place] [facility] [address] [id number] [place] [address]- 3791 Sep, [facility] [place] [facility] [address] [id number] [place] [address]- 2436 Sep, 2013 [facility] [place] [facility] [address] [id number] [place] [address]- 2032 Sep, [facility] [place] [facility] [address] [id number] [place] [address]- 1999 Sep, [facility] [place] [facility] [address] [id number] [place] [address]- 0818 Sep, [facility] [place] [facility] [address] [id number] [place] [address]- 0372 Sep, [facility] [place] [facility] [address] [id number] [place] [address]- 7028 Aug, [facility] [place] [facility] [address] [id number] [place] [address]- 9956 Aug, [facility] [place] [facility] [address] [id number] [place] [address]- 5020 Aug, [facility] [place] [facility] [address] [id number] [place] [address]- 6645 Aug, [facility] [place] [facility] [address] [id number] [place] [address]- 6158 Aug, [facility] [place] [facility] [address] [id number] [place] [address]- 0415 Aug, [facility] [place] [facility] [address] [id number] [place] [address]- 8024 Aug, [facility] [place] [facility] [address] [id number] [place]18 Aug, [facility] [place] [facility] [address] [id number] [place] [address]- 5393 July, [facility] [place] [facility] [address] [id number] [place] [address]- 6925 July, [facility] [place] [facility] [address] [id number] [place]01 July, [facility] [place] [facility] [address] [id number] [place] [address]- 9409 July, [facility] [place] [facility] [address] [id number] [place] [address]- 1669 July, [facility] [place] [facility] [address] [id number] [place] [address]- 8699 July, [facility] [place] [facility] [address] [id number] [place] [address]- 9726 July, [facility] [place] [facility] [address] [id number] [place] [address]- 2288 July, [facility] [place] [facility] [address] [id number] [place] [address]- 5825 Jun, [facility] [place] [facility] [address] [id number] [place] [address]- 5417 Jun, [facility] [place] [facility] [address] [id number] [place] [address]- 2059 Jun, [facility] [place] [facility] [address] [id number] [place] [address]- 6285 Jun, [facility] [place] [facility] [address] [id number] [place] [address]- 9222 Jun, [facility] [place] [facility] [address] [id number] [place] [address]- 4587 Jun, [facility] [place] [facility] [address] [id number] [place] [address]- 9872 15 Jun, 2013 [facility] [address] [id number] [place] [address]- 7803 Jun, [facility] [place] [facility] [address] [id number] [place] [address]- 2076 Jun, [facility] [address] [id number] [place] [address]- 6576 Jun, [facility] [place] [facility] [address] [id number] [place] [address]- 8559 Jun, [facility] [place] [facility] [address] [id number] [place] [address]- 0784 Jun, [facility] [address] [id number] [place] [address]- 0296 May, [facility] [address] [id number] [place] [address]- 7859 May, [facility] [address] [id number] [place] [address]- 2746 May, [facility] [place] [facility] [address] [id number] [place] [address]- 1761 May, [facility] [address] [id number] [place] [address]- 6447 May, [facility] [place] [facility] [address] [id number] [place] [address]- 2012 May, [facility] [place] [facility] [address] [id number] [place] [address]- 6965 May, [facility] [place] [facility] [address] [id number] [place] [address]- 1171 May, [facility] [place] [facility] [address] [id number] [place] [address]- 4118 May, [facility] [place] [facility] [address] [id number] [place] [address]- 0796 May, [facility] [place] [facility] [address] [id number] [place] [address]- 0164 May, [facility] [place] [facility] [address] [id number] [place] [address]- 3823 May, [facility] [place] [facility] [address] [id number] [place] [address]- 0520 May, [facility] [place] [facility] [address] [id number] [place] [address]- 8960 May, [facility] [place] [facility] [address] [id number] [place] [address]- 8784 Apr, [facility] [place] [facility] [address] [id number] [place] [address]- 0152 Apr, [facility] [place] [facility] [address] [id number] [place] [address]- 8866 Apr, [facility] [place] [facility] [address] [id number] [place] [address]- 9971 Apr, [facility] [place] [facility] [address] [id number] [place] [address]- 2268 Apr, [facility] [place] [facility] [address] [id number] [place] [address]- 3656 Apr, [facility] [place] [facility] [address] [id number] [place] [address]- 8450 Mar, [facility] [place] [facility] [address] [id number] [place] [address]- 3826 Mar, [facility] [place] [facility] [address] [id number] [place] [address]- 9232 Mar, [facility] [place] [facility] [address] [id number] [place] [address]- 8391 Mar, [facility] [place] [facility] [address] [id number] [place] [address]- 7517 Mar, [facility] [place] [facility] [address] [id number] [place] [address]- 6600 Mar, [facility] [address] [id number] [place] [address]- 8883 Mar, [facility] [place] [facility] [address] [id number] [place] [address]- 5246 Mar, [facility] [place] [facility] [address] [id number] [place] [address]- 6046 Mar, [facility] [place] [facility] [address] [id number] [place] [address]- 9259 Mar, [facility] [place] [facility] [address] [id number] [place]297 Mar, [facility] [place] [facility] [address] [id number] [place] [address]- 8244 Mar, [facility] [place] [facility] [address] [id number] [place] [address]- 3176 Mar, [facility] [place] [facility] [address] [id number] [place] [address]- 0110 Mar, [facility] [place] [facility] [address] [id number] [place] [address]- 6042 Feb, [facility] [place] [facility] [address] [id number] [place] [address]- 9424 Feb, [facility] [place] [facility] [address] [id number] [place] [address]- 7966 30 Feb, 2013 [facility] [place] [facility] [address] [id number] [place] [address]- 2543 30 Feb, 2013 [facility] [place] [facility] [address] [id number] [place] [address]- 6126 Feb, [facility] [place] [facility] [address] [id number] [place] [address]- 9697 30 Feb, 2013 [facility] [place] [facility] [address] [id number] [place] [address]- 5054 Feb, [facility] [place] [facility] [address] [id number] [place] [address]- 4710 Feb, [facility] [place] [facility] [address] [id number] [place] [address]903 Feb, [facility] [place] [facility] [address] [id number] [place] [address]- 8418 Feb, [facility] [place] [facility] [address] [id number] [place] [address]- 2685 Feb, [facility] [address] [id number] [place] [address]- 4022 Feb, [facility] [address] [id number] [place] [address]- 3898 Feb, [facility] [address] [id number] [place] [address]- 7932 Feb, [facility] [address] [id number] [place] [address]- 7234 Feb, [facility] [address] [id number] [place] [address]- 5517 Feb, [facility] [address] [id number] [place] [address]- 6119 Dec, [facility] [place] [facility] [address] [id number] [place] [address]- 0952 Dec, [facility] [place] [facility] [address] [id number], [place] [address]- 3738 Dec, [facility] [place] [facility] [address] [id number] [place] [address]- 1603 Dec, [facility] [place] [facility] [address] [id number] [place] [address]- 7369 Dec, [facility] [place] [facility] [address] [id number], [place] [address]- 8384 Dec, [facility] [place] [facility] [address] [id number], [place] [address]- 7710 14 Dec, 2012 [facility] [place] [facility] [address] [id number] [place] [address]- 0609 14 Dec, 2012 [facility] [place] [facility] [address] [id number] [place] [address]- 1536 10 Dec, 2012 [facility] [place] [facility] [address] [id number] [place] [address]- 6737 10 Dec, 2012 [facility] [place] [facility] [address] [id number] [place] [address] 10 Dec, 2012 [facility] [place] [facility] [address] [id number] [place] [address] 10 Dec, 2012 [facility] [place] [facility] [address] [id number] [place] [address] 03 Dec, 2012 [facility] [place] [facility] [address] [id number] [place] [address] 25 Nov, 2012 [facility] [address] [id number] [place] [address]36 20 Nov, 2012 [facility] [place] [facility] [address] [id number] [place] [address] 18 Nov, 2012 [facility] [place] [facility] [address] [id number] [place] [address] 16 Nov, 2012 [facility] [place] [facility] [address] [id number] [place] [address] 12 Nov, 2012 [facility] [place] [facility] [address] [id number] [place] [address] 78[address] 11 Nov, 2012 [facility] [place] [facility] [address] [id number] [place] [address] 05 Nov, 2012 [facility] [place] [facility] [address] [id number] [place] [address] 15 Oct, 2012 [facility] [address] [id number] [place] [address] Oct, [facility] [address] [id number] [place] [address] 24 Sep, 2012 [facility] [address] [id number] [place] [address] 47[address] 23 Sep, 2012 [facility] [address] [id number] [place] [address] 18 Sep, 2012 [facility] [address] [id number] [place] [address] 17 Sep, 2012 [facility] [address] [id number] [place] [address] 58[address] 15 Sep, 2012 [facility] [address] [id number] [place] [address]- [address] 09 Sep, 2012 [facility] [address] [id number] [place] [address] Sep, [facility] [address] [id number] [place] [address] Aug, [facility] [address] [id number] [place] [address] 3966 18 Aug, 2012 [facility] [address] [id number] [place] [address]- 0915 16 Aug, 2012 [facility] [address] [id number] [place] [address] 74[address] 13 Aug, 2012 [facility] [address] [id number] [place] [address] Aug, [facility] [address] [id number] [place] [address]- [address] Aug, [facility] [address] [id number] [place] [address] 1857 Aug, [facility] [address] [id number] [place] [address] 8780 Aug, [facility] [address] [id number] [place] [address] 74[address] July, [facility] [address] [id number] [place] [address] July, [facility] [address] [id number] [place] [address] July, [facility] [address] [id number] [place] [id number] July, [facility] [address] [id number] [place] [address]- 0786 July, [facility] [address] [id number] [place] [address] Jun, [facility] [address] [id number] [place] [address]- 1086 May, [facility] [address] [id number] [place] [address] May, [facility] [address] [id number] [place] [address] 69[address] May, [facility] [address] [id number] [place] [address]- [address] Apr, [facility] [address] [id number] [place] [address]- [address] Apr, [facility] [address] [id number] [place] [address]- 57[address] Apr, [facility] [address] [id number] [place] [address] 2949 Mar, [facility] [address] [id number] [place] [address]- 386[address] Mar, [facility] [address] [id number] [place] [address]- 6936 Mar, [facility] [address] [id number] [place] [address]- 9346 Mar, [facility] [address] [id number] [place] [address]- 2038 Mar, [facility] [address] [id number] [place] [address]- 2052 Mar, [facility] [address] [id number] [place] [address]- 3189 Mar, [facility] [address] [id number] [place] [address]- 9509 Feb, [facility] [address] [id number] [place] [address]- 3556 Feb, [facility] [address] [id number] [place] [address]- [address]276 Feb, [facility] [address] [id number] [place] [address]- 8542 Feb, [facility] [address] [id number] [place] [address]- 2414 Feb, [facility] [address] [id number] [place] [address]- 1307 Feb, [facility] [address] [id number] [place] [address]- 4911 Feb, [facility] [address] [id number] [place] [address]- 7389 Feb, [facility] [address] [id number] [place] [address]- 5[address] Jan, [facility] [address] [id number] [place] [address]- 9821 Jan, [facility] [address] [id number] [place] [address]- 1073 Jan, [facility] [address] [id number] [place] [address]- 6386 Jan, [facility] [address] [id number] [place] [address]- 9429 Jan, [facility] [address] [id number] [place] [address]- 6916 Jan, [facility] [address] [id number] [place] [address]- 5495 Jan, [facility] [address] [id number] [place] [address]- 0823 Jan, [facility] [address] [id number] [place] [address]- 8847 Jan, [facility] [address] [id number] [place] [address]- [address] Jan, [facility] [address] [id number] [place] [address]- [address]997 Jan, [facility] [address] [id number] [place] [address]- 9566 Jan, [facility] [address] [id number] [place] [address]- 0470 Jan, [facility] [address] [id number] [place] [address] Jan, [facility] [place] [facility] [address] [id number] [place] [address] Jan, [facility] [place] [facility] [address] [id number] [place] [address] Jan, [facility] [place] [facility] [address] [id number] [place] [address] Dec, [facility] [place] [facility] [address] [id number] [place] [address] Dec, [facility] [place] [facility] [address] [id number] [place] [address] Dec, [facility] [place] [facility] [address] [id number] [place] [address]6 Dec, [facility] [place] [facility] [address] [id number] [place] [address] Dec, [facility] [place] [facility] [address] [id number] [place] [address] Dec, [facility] [place] [facility] [address] [id number] [place] [address] Dec, [facility] [place] [facility] [address] [id number] [place] [address] Dec, [facility] [place] [facility] [address] [id number] [place] [address] Dec, [facility] [place] [facility] [address] [id number] [place] [address] Dec, [facility] [place] [facility] [address] [id number] [place] [address] 18 Nov, 2011 [facility] [place] [facility] [address] [id number] [place] [address] Nov, [facility] [place] [facility] [address] [id number], [place] [address] 24 Oct, 2011 [facility] [place] [facility] [address] [id number] [place] [address] Oct, [facility] [place] [facility] [address] [id number] [place] [address] 68[address] Oct, [facility] [place] [facility] [address] [id number], [place] [address] 16 Oct, 2011 [facility] [place] [facility] [address] [id number], [place] [address] 15 Oct, 2011 [facility] [place] [facility] [address] [id number] [place] [address] Oct, [facility] [place] [facility] [address] [id number], [place] [address] Oct, [facility] [place] [facility] [address] [id number], [place] [address] Sep, [facility] [place] [facility] [address] [id number] [place] [address] Aug, [facility] [place] [facility] [address] [id number] [place] [address] 8429 Aug, [facility] [place] [facility] [address] [id number] [place] [address] 49[address] Aug, [facility] [place] [facility] [address] [id number] [place] [address]179 Aug, [facility] [place] [facility] [address] [id number] [place] [address] 6445 Aug, [facility] [place] [facility] [address] [id number] [place] [address] July, [facility] [place] [facility] [address] [id number] [place] [address] July, [facility] [address] [id number] [place] [address] July, [facility] [place] [facility] [address] [id number] [place] [address] Jun, [facility] [place] [facility] [address] [id number] [place] [address] Jun, [facility] [place] [facility] [address] [id number] [place] [address] 7647 Jun, [facility] [place] [facility] [address] [id number] [place] [address] 68[address] Jun, [facility] [place] [facility] [address] [id number] [place] [address] 7413 May, [facility] [place] [facility] [address] [id number] [place] [address] 2214 30 May, 2011 [facility] [place] [facility] [address] [id number] [place] [address]- [address] 29 May, 2011 [facility] [place] [facility] [address] [id number] [place] [address] 99[address] May, [facility] [place] [facility] [address] [id number] [place] [address]- [address]677 23 May, 2011 [facility] [address] [id number] [place] [address] 22 May, 2011 [facility] [address] [id number] [place] [address]- 5[address] 21 May, 2011 [facility] [address] [id number] [place] [address]- 2775 19 May, 2011 [facility] [address] [id number] [place] [address] 08 May, 2011 [facility] [address] [id number] [place] [address] 05 May, 2011 [facility] [address] [id number] [place] [address]- 8264 02 May, 2011 [facility] [address] [id number] [place] [address] 6960 May, [facility] [address] [id number] [place] [address] 3849 31 Mar, 2011 [facility] [address] [id number] [place] [address] Mar, [facility] [address] [id number] [place] [address] 9609 28 Feb, 2011 [facility] [address] [id number] [place] [address] 8916 Feb, [facility] [place] [facility] [address] [id number] [place] [address]- 4531 20 Feb, 2011 [facility] [place] [facility] [address] [id number] [place] [address]- 9946 15 Feb, 2011 [facility] [place] [facility] [address] [id number] [place] [address]- 4061 13 Feb, 2011 [facility] [place] [facility] [address] [id number] [place] [address]- 2728 Feb, [facility] [place] [facility] [address] [id number] [place] [address]- 0988 Feb, [facility] [place] [facility] [address] [id number] [place] [address]772 Jan, [facility] [place] [facility] [address] [id number] [place] [address]- 2510 Jan, [facility] [place] [facility] [address] [id number] [place] [address]- 6205 Jan, [facility] [place] [facility] [address] [id number] [place] [address]- 5023 Jan, [facility] [place] [facility] [address] [id number] [place] [address]- 4866 Jan, [facility] [place] [facility] [address] [id number] [place] [address]- 4651 Jan, [facility] [place] [facility] [address] [id number] [place] [address]- 2659 Dec, [facility] [place] [facility] [address] [id number] [place] [address]- 5726 Dec, [facility] [place] [facility] [address] [id number] [place] [address]- 1279 Dec, [facility] [place] [facility] [address] [id number], [place] [address] July, [facility] [place] [facility] [address] [id number] [place] [address]- 4439 July, [facility] [place] [facility] [address] [id number] [place] [address]- 7469 Feb, [facility] [place] [facility] [address] [id number] [place] [address]- 8[address] Jan, [facility] [place] [facility] [address] [id number] [place] [address]- 4247 Dec, [facility] [place] [facility] [address] [id number] [place] [address]- 6992 12 Dec, 2009 [facility] [address] [id number] [place] [address]- 1672 15 Sep, 2009 [facility] [address] [id number] [place] [address]- 6630 Aug, [facility] [address] [id number] [place] [address]- 1169 Jun, [facility] [address] [id number] [place] [address]- 8329 Jun, [facility] [address] [id number] [place] [address]- 7744 Jan, [facility] [address] [facility] [id number] [place] [address]- 8287 Jan, [facility] [address] [facility] [id number] [place] [address]- 3355 Jan, [facility] [address] [id number] [place] [address]- 7744 Jan, [facility] [address] [facility] [id number] [place] [address]- 2901 29 Dec, 2008 [facility] [address] [facility] [id number] [place] [address]- 7619 Dec, [facility] [address] [id number] [place] [address]- 2217 15 Dec, 2008 [facility] [address] [id number], [place] [address]- 1561 Nov, [facility] [address] [id number] [place] [address]- 7568 July, [facility] [address] [facility] [id number] [place] [address]- 4786 May, [facility] [address] [id number], [place] [address] Apr, [facility] [address] [facility] [id number] [place] [address]- 2546 Feb, [facility] [address] [facility] [id number], [place] [address]46 Dec, IMMUNIZATIONS No Known Immunizations SOCIAL HISTORY Never Assessed REASON FOR VISIT hand numbness off and on for a year. Edd PLAN OF CARE Activity Details Follow Up prn Reason: VITAL SIGNS Height 64 in 2017-04-19 Weight 180.3 lbs 2017-04-19 Temperature 98.3 degrees Fahrenheit 2017-04-19 Heart Rate 92 bpm 2017-04-19 Respiratory Rate 20 2017-04-19 BMI 30.95 kg/m2 2017-04-19 Blood pressure systolic 110 mmHg 2017-04-19 Blood pressure diastolic 64 mmHg 2017-04-19 MEDICATIONS Medication Instructions Dosage Frequency Start Date End Date Duration Status Actos 45 MG Orally Once a day [...] inject 0.3 ml 24h 90 days Active Farxiga 10 MG Orally Once a day 1 tablet 24h Apr, 90 days Active Ativan 0.5 MG Orally Once a day, no early refills 1 tablet as needed Sep, Active NovoLog Mix 70/30 Flexpen (70-30) 100 UNIT/ML Subcutaneous 2 times a day Inject 110 12h Active Amaryl 4 MG Orally Once a day in AM 1 tablet with breakfast or the first main meal of the day Sep, 30 day(s) Active Test strips Contour test strips 2 times a day test blood sugar 12h Aug, Active Lamictal 200 MG Orally every evening 1 tablet May, Active Aspirin Adult Low Strength 81 MG Orally Once a day 1 tablet 24h Active Simvastatin 80 MG Orally Once a [...]
--- OUTSIDE RECORDS SUMMARY | 2018-06-14 15:05 | XMS REPORT ---
Author Author ARIAN US Organization [facility] Address [address] [place] [address] Care Team Providers [employer]aker Name Role Phone ARIAN US Unavailable PROBLEMS Type Condition ICD9-CM Code WUR25-SW Code Onset Dates Condition Status SNOMED Code Problem Diabetes E11.9 Active 653964042 Problem Lumbar radiculopathy M54.16 Active 381226930 Problem Irritable bowel syndrome with diarrhea K58.0 Active 750983177 Problem New daily persistent headache G44.52 Active 626869610 Problem Acute bilateral low back pain with right-sided sciatica M54.41 Active 085680513 Problem 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 Active 666023730 Problem Bipolar 1 disorder F31.9 Active 064708142 Problem Hyperlipidemia, unspecified E78.5 Active 48469040 Problem Type 2 diabetes mellitus with complication E11.8 Active 663711461 Problem Post laminectomy syndrome M96.1 Active 31223066 Problem Eye exam normal Z01.00 Active 189648136 Problem Bipolar disorder, in partial remission, most recent episode manic F31.73 Active 66416249 Problem Extreme poverty Z59.5 Active 83175397 Problem Obesity, unspecified 278.00 Active 015498036 Problem 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 Active 69210810 Problem Hyperlipidemia 272.4 Active 05243129 Problem Non compliance with medical treatment Z91.19 Active 7145132 ALLERGIES No Information ENCOUNTERS Encounter Location Date Diagnosis [facility] [address] [address] Nov, [facility] [address] [address] Oct, [facility] [id number] [address] Oct, [facility] [address] [address] Oct, [facility] [id number] [place] [address] 85520- 6494 Aug, Type 2 diabetes mellitus with complication E11.8 [facility] [address] [place] [address] 71529- 9526 Aug, [facility] [id number] [place] [address] 07086- 0077 Aug, Bipolar 1 disorder F31.9 ; 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 and Extreme poverty Z59.5 [facility] [facility] [id number] [place] [address] 01872- 7555 Aug, 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 and Bipolar disorder, in partial remission, most recent episode manic F31.73 [facility] [id number] [place] [address] 39558- 4586 Aug, Bipolar 1 disorder F31.9 [facility] [address] [place] [address] 12545- 8490 Aug, [facility] [id number] [place] [address] 37690- 9881 Aug, [facility] [address] [place] [address] 95560- 9924 Aug, Bipolar 1 disorder F31.9 ; 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 and Extreme poverty Z59.5 [facility] [address] [place] [address] 25411- 1671 July, Type 2 diabetes mellitus with complication E11.8 [facility] [id number] [place] [address] 27428- 8292 July, Bipolar 1 disorder F31.9 ; 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 and Extreme poverty Z59.5 [facility] [address] [address] Jun, Bipolar 1 disorder F31.9 ; 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 and Extreme poverty Z59.5 [place] [address] [place] [address] 62404- 0368 Jun, Bipolar 1 disorder F31.9 ; 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 and Extreme poverty Z59.5 [place] [facility] [address] [place] [address] 28999- 6384 Jun, Bipolar 1 disorder F31.9 ; 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 and Extreme poverty Z59.5 [facility] [id number] [place] [address] 08296- 7750 May, Urinary tract infection without hematuria, site unspecified N39.0 [facility] [id number] [place] [address] 73598- 8562 May, Bipolar 1 disorder F31.9 ; 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 and Extreme poverty Z59.5 [facility] [id number] [place] [address] 58304- 7580 Apr, Diabetes E11.9 and Breast cancer screening Z12.31 [facility] [id number] [place] [address] 06784- 5381 Apr, Bipolar 1 disorder F31.9 and 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 [facility] [id number] [place] [address] 97141- 0976 Mar, Bipolar 1 disorder F31.9 ; 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 and Extreme poverty Z59.5 [facility] [facility] [address] [place] [address] 24620- 7754 Mar, New daily persistent headache G44.52 ; Leg pain 729.5 and History of carpal tunnel release Z98.890 [facility] [facility] [address] [place] [address] 33824- 1556 Mar, Hyperlipidemia, unspecified E78.5 [facility] [id number] [place] [address] 48020- 8461 Mar, Bipolar 1 disorder F31.9 ; 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 and Extreme poverty Z59.5 [facility] [facility] [id number] [place] [address] 71592- 3828 Feb, Bipolar 1 disorder F31.9 ; 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 and Extreme poverty Z59.5 [facility] [id number] [place] [address] 84072- 7731 Feb, Diabetes E11.9 [place] [address] 330942- 5403 Feb, Viral syndrome B34.9 [place] [address] 73643- 4841 Jan, Other viral agents as the cause of diseases classified elsewhere B97.89 and Acute upper respiratory infection, unspecified J06.9 [facility] [id number] [place] [address] 30222- 2705 Jan, Bipolar 1 disorder F31.9 and 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 [facility] [id number] [place] [address] 15191- 2778 Jan, Bipolar 1 disorder F31.9 ; 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 and Extreme poverty Z59.5 [facility] [id number] [place] [address] 86128- 6881 Dec, Diabetes E11.9 [place] [facility] [address] 44333- 1910 Dec, Diabetes E11.9 and Encounter for immunization Z23 [facility] [facility] [id number] [place] [address] 95322- 9200 Dec, Bipolar 1 disorder F31.9 ; 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 and Extreme poverty Z59.5 [facility] [id number] [place] [address] 35126- 2357 Dec, Back pain M54.9 [place] [address] 33958- 4700 Nov, [place] [address] [place] [address] 81833- 0475 Nov, Bipolar 1 disorder F31.9 ; 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 and Extreme poverty Z59.5 [place] [facility] [address] [place] [address] 30229- 2750 Nov, Bipolar 1 disorder F31.9 ; 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 and Extreme poverty Z59.5 [facility] [id number] [place] [address] 37155- 2823 Oct, 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 and Bipolar 1 disorder F31.9 [place] [facility] [id number] [place] [address] 23634- 8739 Oct, Bipolar 1 disorder F31.9 ; 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 and Extreme poverty Z59.5 [facility] [facility] [id number] [place] [address] 12397- 9098 Oct, Back pain M54.9 [place] [facility] [id number] [place] [address] 99036- 3514 Oct, 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 and Type 2 diabetes mellitus with complication E11.8 [place] [address] [place] [address] 77079- 6109 Sep, Bipolar 1 disorder F31.9 ; 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 and Extreme poverty Z59.5 [place] [facility] [address] [place] [address] 36565- 5093 Sep, 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 and Bipolar 1 disorder F31.9 [facility] [facility] [id number] [place] [address] 95516- 2899 Sep, Bipolar 1 disorder F31.9 ; 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 and Extreme poverty Z59.5 [place] [address] [place] [address] 81704- 8831 Aug, Diabetes E11.9 ; Hyperlipidemia, unspecified E78.5 and Lumbar radiculopathy M54.16 [facility] [address], [place] [address] 4753 Aug, Bipolar 1 disorder F31.9 ; 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 and Extreme poverty Z59.5 [facility] [address], [place] [address]- 0425 Aug, [place] [id number] [place] [address] 40908- 6145 Aug, [facility] [id number] [place] [address] 07402- 1741 Aug, [facility] [facility] [id number] [place] [address] 43489- 9870 July, [facility] [facility] [id number] [place] [address] 66841- 2869 July, Acute bilateral low back pain with right-sided sciatica M54.41 [facility] [id number] [place] [address] 91155- 8083 July, Bipolar 1 disorder F31.9 ; 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 and Extreme poverty Z59.5 [facility] [facility] [address] [place] [address] 78818- 7697 July, Back pain M54.9 and Diabetes E11.9 [facility] [facility] [id number] [place] [address] 36674- 4901 Jun, Bipolar 1 disorder F31.9 ; 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 and Extreme poverty Z59.5 [place] [address] [place] [address] 92244- 1862 Jun, Bipolar 1 disorder F31.9 ; 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 and Extreme poverty Z59.5 [place] [address] [place] [address] 97271- 7250 May, Visit for pelvic exam Z01.419 ; Acute vaginitis N76.0 and Diabetes E11.9 [place] [facility] [id number] [place] [address] 11844- 4248 May, Bipolar 1 disorder F31.9 ; 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 and Extreme poverty Z59.5 [facility] [facility] [id number] [place] [address] 92011- 7635 May, [place] [address] 77342- 9867 May, [place] [facility] [id number] [place] [address] 69706- 8632 May, Bipolar 1 disorder F31.9 ; 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 and Extreme poverty Z59.5 [place] [facility] [address] [place] [address] 59781- 7671 May, Hyperlipidemia, unspecified E78.[address] 54507- 1550 Apr, Breast cancer screening Z12.39 [place] [address] 01012- 4980 Mar, [place] [address] 59636- 4065 Mar, Bipolar disorder, current episode mixed, unspecified F31.60 [facility] [facility] [id number] [place] [address] 72566- 1860 Mar, Bipolar 1 disorder F31.9 ; 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 and Extreme poverty Z59.5 [place] [facility] [id number] [place] [address] 42914- 0805 Feb, Acute nasopharyngitis J00 [place] [id number] [place] [address] 77966- 4291 Feb, Dental examination Z01.20 [place] [facility] [address] [place] [address] 02266- 9627 21 Dec, 2016 Dental cavities K02.9 and Chronic periodontitis, unspecified K05.30 [place] [facility] [address] [place] [address] 44468- 1690 13 Feb, 2016 Low back pain M54.5 and Extreme poverty Z59.5 [facility] [facility] [address] [place] [address] 56881- 6055 08 Feb, 2016 [place] [address] 74412- 5147 05 Feb, 2016 Routine gynecological examination V72.31 ; Breast cancer screening Z12.39 and Herpes simplex type [address] 11555- 8898 02 Feb, 2016 Diabetes E11.9 [place] [facility] [id number] [place] [address] 66189- 8960 Feb, Encounter for dental examination and cleaning without abnormal findings Z01.20 [place] [address] [place] [address] 40933- 0057 22 Jan, 2016 Hyperlipidemia, unspecified E78.5 [place] [address] 30113- 1237 22 Jan, 2016 Bipolar 1 disorder F31.9 ; 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 and Extreme poverty Z59.5 [place] [address] [place] [address] 84675- 6140 18 Jan, 2016 Diabetes E11.9 [place] [facility] [id number] [place] [address] 82958- 0790 17 Jan, 2016 Diabetes E11.9 [place] [facility] [id number] [place] [address] 92436- 3174 14 Dec, 2015 Bipolar 1 disorder F31.9 ; 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 and Extreme poverty Z59.5 [place] [facility] [address] [place] [address] 67692- 7527 13 Dec, 2015 Bipolar disorder, current episode mixed, unspecified F31.60 and 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 [facility] [address] [place] [address] 36378- 6933 16 Nov, 2015 Bipolar 1 disorder F31.9 ; 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 ; Extreme poverty Z59.5 and Non compliance with medical treatment Z91.19 [facility] [address] [place] [address] 72371- 0268 Oct, [facility] [id number] [place] [address] 48098- 2481 Oct, Dental caries K02.9 [facility] [address] [place] [address] 80787- 9586 Oct, Low back pain M54.5 and Other chronic pain G89.29 [place] [address] [place] [address] 19881- 9682 Oct, Bipolar 1 disorder F31.9 ; 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 ; Extreme poverty Z59.5 and Non compliance with medical treatment Z91.19 [facility] [address] [place] [address] 67603- 7600 Oct, [place] [id number] [place] [address] 07265- 3566 Oct, [facility] [facility] [id number] [place] [address] 21291- 3222 Oct, Dental examination Z01.20 [facility] [id number] [place] [address] 54043- 5910 Oct, Bipolar 1 disorder F31.9 ; 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 ; Extreme poverty Z59.5 and Non compliance with medical treatment Z91.19 [facility] [id number] [place] [address] 94261- 5011 Oct, [facility] [id number] [place] [address] 51438- 9900 Sep, Type 2 diabetes mellitus with complication E11.8 [place] [address] [place] [address]- 3976 Sep, Bipolar disorder, current episode mixed, unspecified F31.60 [facility] [facility] [id number] [place] [address] 67893- 6953 Sep, Bipolar disorder, current episode mixed, unspecified F31.60 [facility] [facility] [address] [place] [address] 88818- 3045 Sep, Bipolar disorder, in partial remission, most recent episode manic F31.73 ; 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 ; Extreme poverty Z59.5 and Non compliance with medical treatment Z91.19 [place] [address] [place] [address] 22101- 5932 Aug, Bipolar disorder, in partial remission, most recent episode manic F31.73 ; 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 ; Extreme poverty Z59.5 and Non compliance with medical treatment Z91.19 [place] [address] [place] [address] 58668- 9708 Aug, Bipolar disorder, in partial remission, most recent episode manic F31.73 ; 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 ; Extreme poverty Z59.5 and Non compliance with medical treatment Z91.19 [place] [address] [place] [address] 29865- 0184 Aug, [facility] [facility] [address] [place] [address] 35964- 1282 July, Bipolar disorder, in partial remission, most recent episode manic F31.73 ; 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 ; Extreme poverty Z59.5 and Non compliance with medical treatment Z91.19 [facility] [address] [place] [address] 10789- 9041 July, Bipolar disorder, current episode mixed, unspecified F31.60 [facility] [facility] [address] [place] [address] 32107- 0143 July, Bipolar disorder, in partial remission, most recent episode manic F31.73 ; 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 ; Extreme poverty Z59.5 and Non compliance with medical treatment Z91.19 [facility] [address] [place] [address] 42607- 6871 July, 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 and Chronic pain G89.29 [facility] [address] [place] [address] 14304- 6515 Jun, [facility] current 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 Z79.891 and Bipolar 1 disorder F31.9 [facility] [id number] [place] [address] 75321- 8968 Jun, [facility] [facility] [id number] [place] [address] 55103- 2201 Jun, [facility] [facility] [address] [place] [address] 38963- 7649 Jun, [facility] [facility] [address] [place] [address] 61417- 1035 Jun, Bipolar disorder, in partial remission, most recent episode manic F31.73 ; 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 and Non compliance with medical treatment Z91.19 [place] [address] [place] [address] 79410- 0355 May, Bipolar disorder, in partial remission, most recent episode manic F31.73 ; 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 and Non compliance with medical treatment Z91.19 [place] [address] [place] [address] 38316- 8272 May, Bipolar disorder, in partial remission, most recent episode manic F31.73 [place] [address] [place] [address] 33154- 9093 May, Diabetes E11.9 and Chronic pain G89.29 [facility] [address] [place] [address] 00429- 5707 14 May, 2015 [place] [id number] [place] [address] 50636- 2937 May, Bipolar disorder, in partial remission, most recent episode manic F31.73 ; Non compliance with medical treatment Z91.19 and 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 [facility] [facility] [address] [place] [address] 21317- 8746 May, Type 2 diabetes mellitus with complication E11.8 and Back pain M54.9 [place] [facility] [address] [place] [address] 65081- 6660 May, Bipolar disorder, in partial remission, most recent episode manic F31.73 and 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 [place] [address] 12823- 9069 Apr, [place] [address] 79955- 5244 Apr, [place] [address] 74669- 6496 Apr, [place] [address] 26023- 9653 Apr, Diabetes E11.9 ; Irritable bowel syndrome with diarrhea K58.0 and Lumbar radiculopathy M54.16 [facility] [address] [place] [address] 42378- 3990 Apr, Breast screening Z12.39 [facility] [address] [place] [address] 15709- 9893 Apr, Bipolar disorder, in partial remission, most recent episode manic F31.73 ; Non compliance with medical treatment Z91.19 and 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 [place] [facility] [address] [place] [address] 97266- 7778 Mar, Edema, unspecified type R60.9 and Type 2 diabetes mellitus with complication E11.8 [facility] [id number] [place] [address] 94136- 9293 Mar, Bipolar disorder, in partial remission, most recent episode manic F31.73 ; Non compliance with medical treatment Z91.19 ; 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 and Extreme poverty Z59.5 [place] [address] [place] [address]- 2258 14 Mar, 2015 Bipolar disorder, current episode mixed, unspecified F31.60 ; 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 ; Extreme poverty Z59.5 and Generalized anxiety disorder F41.1 [facility] [facility] [address] [place] [address] 30157- 0638 12 Mar, 2015 Bipolar disorder, in partial remission, most recent episode manic F31.73 ; 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 and Extreme poverty Z59.5 [place] [address] [place] [address] 95316- 8528 Feb, Bipolar disorder, in partial remission, most recent episode manic F31.73 ; 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 and Extreme poverty Z59.5 [facility] [facility] [address] [place] [address] 22215- 2459 Feb, Bipolar disorder, in partial remission, most recent episode manic F31.73 ; 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 and Extreme poverty Z59.5 [facility] [facility] [address] [place] [address] 89776- 6223 Feb, [id number] [place] [address] 12609- 9296 Jan, Type 2 diabetes mellitus with complication E11.8 and Petechiae R23.3 [facility] [facility] [address] [place] [address] 06009- 5125 Jan, Type 2 diabetes mellitus with complication E11.8 ; Edema, unspecified R60.9 ; Petechiae R23.3 and Diabetes E11.9 [facility] [address] [place] [address] 26750- 6884 Jan, Bipolar disorder, in partial remission, most recent episode manic F31.73 ; 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 and Extreme poverty Z59.5 [facility] [address] [place] [address] 48606- 1659 Jan, Bipolar disorder, in partial remission, most recent episode manic F31.73 ; 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 and Extreme poverty Z59.5 [facility] [address] [place] [address] 25929- 7310 Dec, Bipolar disorder, in partial remission, most recent episode manic F31.73 [place] [address] 57655- 0857 Dec, Edema, due to unspecified malnutrition type, unspecified edema R60.9 and Essential hypertension I10 [address] 67031- 7117 Dec, Bipolar disorder, in partial remission, most recent episode manic F31.73 [place] [address] 75887- 5229 Nov, Bipolar I disorder, most recent episode (or current) mixed, unspecified 296.60 [facility] [id number] [place] [address] 38184- 6519 Nov, Stress incontinence, female 625.6 ; Back pain 724.5 and Leg pain 729.5 [facility] [facility] [address] [place] [address] 43978- 8691 Nov, Generalized anxiety disorder 300.02 and Bipolar II disorder 296.89 [place] [facility] [address] 63849- 5225 Nov, Bipolar I disorder, most recent episode (or current) mixed, unspecified 296.60 [place] [address] 43286- 1149 Oct, [facility] [id number] [place] [address] 90596- 1203 Oct, [place] [address] 93560- 3249 Oct, [facility] [id number] [address]- 9863 Oct, Bipolar I disorder, most recent episode (or current) mixed, unspecified 296.60 [facility] [address] [address]- 3486 Sep, Diabetes 250.00 [facility] [address] [address]- 7223 Sep, Bipolar I disorder, most recent episode (or current) mixed, unspecified 296.60 [facility] [address] [address]- 4430 Sep, [facility] [address]- 4335 Sep, [facility] [address] [address]- 6550 Sep, Bipolar I disorder, most recent episode (or current) mixed, unspecified 296.60 [facility] [address] [address]- 8644 Sep, Bipolar I disorder, most recent episode (or current) mixed, unspecified 296.60 [facility] [address] [address]- 0743 Sep, [facility] [id number] [address]- 1889 Sep, Anxiety 300.00 ; Diabetes 250.00 and Hyperlipidemia 272.4 [facility] [address] [address] [address] Aug, [facility] [address] [address] Aug, [facility] [id number] [address] [address] Aug, [facility] [address] [address] Aug, Bipolar I disorder, most recent episode (or current) mixed, unspecified 296.60 [facility] [id number] [place] [address] 400372- 0115 Aug, Generalized anxiety disorder 300.02 and Bipolar II disorder 296.89 [facility] [address] [address] July, Bipolar I disorder, most recent episode (or current) mixed, unspecified 296.60 [facility] [id number] [place] [address]- 1510 July, Cough 786.2 [facility] [id number] [place] [address] 393794- 3960 July, Bipolar I disorder, most recent episode (or current) mixed, unspecified 296.60 [facility] [id number] [place] [address] 74457- 7656 Jun, Diabetes 250.00 [facility] [id number] [place] [address] 37435- 4032 14 Jun, 2014 [facility] [id number] [place] [address] 38650- 4388 Jun, [facility] [address] [address] 2[address] May, [facility] [address] [address] 3002 May, [facility] [address] [address] 2041 May, [facility] [address] 4083 May, [facility] [address] [address] May, [facility] [address] [address] May, [facility] [place] [facility] [address] [id number] [place] [address]- 5956 Apr, 2014 [facility] [place] [facility] [address] [id number] [place] [address]- 8816 Apr, 2014 [facility] [place] [facility] [address] [id number] [place] [address]- 4946 Apr, 2014 [facility] [place] [facility] [address] [id number] [place] [address] 2546 Apr, 2014 [facility] [place] [facility] [address] [id number] [place] [address]- 2541 Apr, 2014 [facility] [place] [facility] [address] [id number] [place] [address]- 4896 Apr, 2014 [facility] [place] [facility] [address] [id number] [place] [address]- 5782 Apr, [facility] [place] [facility] [address] [id number] [place] [address]- 0076 Apr, [facility] [place] [facility] [address] [id number] [place] [address]- 1751 Mar, [facility] [place] [facility] [address] [id number] [place] [address]- 0520 Mar, [facility] [place] [facility] [address] [id number] [place] [address]- 3046 Mar, [facility] [place] [facility] [address] [id number] [place] [address]- 9289 Mar, [facility] [place] [facility] [address] [id number] [place] [address] 2540 Mar, [facility] [place] [facility] [address] [id number] [place] [address]- 4013 Mar, [facility] [place] [facility] [address] [id number] [place] [address]- 3157 Mar, [facility] [place] [facility] [address] [id number] [place] [address]- 8732 13 Mar, 2014 [facility] [place] [facility] [address] [id number] [place] [address]- 5614 Feb, [facility] [place] [facility] [address] [id number] [place] [address]- 9425 Feb, [facility] [place] [facility] [address] [id number] [place] [address]- 9920 Feb, [facility] [place] [facility] [address] [id number] [place] [address]- 1496 Feb, [facility] [place] [facility] [address] [id number] [place] [address]- 8356 Feb, [facility] [place] [facility] [address] [id number] [place] [address]- 4274 Feb, [facility] [place] [facility] [address] [id number] [place] [address]- 7885 Feb, [facility] [place] [facility] [address] [id number] [place] [address]- 9251 Feb, [facility] [place] [facility] [address] [id number] [place] [address]- 8365 Feb, [facility] [place] [facility] [address] [id number] [place] [address]- 3215 Feb, [facility] [place] [facility] [address] [id number] [place] [address]- 8873 Jan, [facility] [place] [facility] [address] [id number] [place] [address]- 0476 Jan, [facility] [place] [facility] [address] [id number] [place] [address]- 3820 Jan, [facility] [place] [facility] [address] [id number] [place] [address]- 6046 Jan, [facility] [place] [facility] [address] [id number] [place] [address]- 1748 Jan, [facility] [place] [facility] [address] [id number] [place] [address]- 4537 Jan, [facility] [place] [facility] [address] [id number] [place] [address]- 5000 Jan, [facility] [place] [facility] [address] [id number] [place] [address]- 0587 Jan, [facility] [place] [facility] [address] [id number] [place] [address]- 9565 Jan, [facility] [place] [facility] [address] [id number] [place] [address]- 2406 Jan, [facility] [place] [facility] [address] [id number] [place] [address]- 2828 Jan, [facility] [place] [facility] [address] [id number] [place] [address]- 8400 Jan, [facility] [place] [facility] [address] [id number] [place] [address]- 8256 Jan, [facility] [place] [facility] [address] [id number] [place] [address]- 1237 Jan, [facility] [place] [facility] [address] [id number] [place] [address]- 8137 Jan, [facility] [place] [facility] [address] [id number] [place] [address]- 5245 Dec, [facility] [place] [facility] [address] [id number] [place] [address]- 4649 Dec, [facility] [place] [facility] [address] [id number] [place] [address]- 8494 Dec, [facility] [place] [facility] [address] [id number] [place] [address]- 3981 Dec, [facility] [place] [facility] [address] [id number] [place] [address]- 5733 Dec, [facility] [place] [facility] [address] [id number] [place] [address]- 5480 09 Dec, 2013 [facility] [place] [facility] [address] [id number] [place] [address]- 3981 07 Dec, 2013 [facility] [place] [facility] [address] [id number] [place] [address]- 9269 07 Dec, 2013 [facility] [place] [facility] [address] [id number] [place] [address]- 1628 25 Sep, 2013 [facility] [place] [facility] [address] [id number] [place] [address]- 3294 25 Sep, 2013 [facility] [place] [facility] [address] [id number] [place] [address]- 1452 10 Sep, 2013 [facility] [place] [facility] [address] [id number] [place] [address]- 8636 10 Sep, 2013 [facility] [place] [facility] [address] [id number] [place] [address]- 4804 08 Sep, 2013 [facility] [place] [facility] [address] [id number] [place] [address]- 3089 08 Sep, 2013 [facility] [place] [facility] [address] [id number] [place] [address]- 0770 08 Sep, 2013 [facility] [place] [facility] [address] [id number] [place] [address]- 6310 08 Sep, 2013 [facility] [place] [facility] [address] [id number] [address]- 9116 08 Sep, 2013 [facility] [place] [facility] [address] [id number], [place] [address]- 2394 08 Sep, 2013 [facility] [place] [facility] [address] [id number] [place] [address]- 2544 04 Sep, 2013 [facility] [place] [facility] [address] [id number] [place] [address]- 1032 04 Sep, 2013 [facility] [place] [facility] [address] [id number] [place] [address]- 1644 03 Sep, 2013 [facility] [place] [facility] [address] [id number] [place] [address]- 8451 Nov, [facility] [place] [facility] [address] [id number] [place] [address]- 1766 Nov, [facility] [place] [facility] [address] [id number] [place] [address]- 6601 Oct, [facility] [place] [facility] [address] [id number] [place] [address]- 0577 Oct, [facility] [place] [facility] [address] [id number] [place] [address]- 7814 Oct, [facility] [place] [facility] [address] [id number] [place] [address]- 2172 Oct, [facility] [place] [facility] [address] [id number] [place] [address]- 1621 Oct, [facility] [place] [facility] [address] [id number] [place] [address]- 3569 Oct, [facility] [place] [facility] [address] [id number] [place] [address]- 0719 Oct, [facility] [place] [facility] [address] [id number] [place] [address]- 3134 Oct, [facility] [place] [facility] [address] [id number] [place] [address]- 3627 Oct, [facility] [place] [facility] [address] [id number] [place] [address]- 5296 Oct, [facility] [place] [facility] [address] [id number] [place] [address]- 2548 Oct, [facility] [place] [facility] [address] [id number] [place] [address]- 6643 Oct, [facility] [place] [facility] [address] [id number] [place] [address]- 4674 Oct, [facility] [place] [facility] [address] [id number] [place] [address]- 7815 Oct, [facility] [place] [facility] [address] [id number] [place] [address]- 1352 Sep, [facility] [place] [facility] [address] [id number] [place] [address]- 6402 Sep, [facility] [place] [facility] [address] [id number] [place] [address]- 6851 Sep, [facility] [place] [facility] [address] [id number] [place] [address]- 3302 Sep, [facility] [place] [facility] [address] [id number] [place] [address]- 6823 Sep, [facility] [place] [facility] [address] [id number] [place] [address]- 5422 Sep, [facility] [place] [facility] [address] [id number] [place] [address]- 4987 Sep, [facility] [place] [facility] [address] [id number] [place] [address]- 9720 Sep, [facility] [place] [facility] [address] [id number] [place] [address]- 6384 Aug, [facility] [place] [facility] [address] [id number] [place] [address]- 8306 Aug, [facility] [place] [facility] [address] [id number] [place] [address]- 3476 Aug, [facility] [place] [facility] [address] [id number] [place] [address]- 3709 Aug, [facility] [place] [facility] [address] [id number] [place] [address]- 1755 Aug, [facility] [place] [facility] [address] [id number] [place] [address]- 6613 Aug, [facility] [place] [facility] [address] [id number] [place] [address]- 7165 Aug, [facility] [place] [facility] [address] [id number] [place] [address]- 4866 Aug, [facility] [address] [id number] [place] [address]- 5335 July, [facility] [place] [facility] [address] [id number] [place] [address]- 8813 July, [facility] [place] [facility] [address] [id number] [place] [address]- 6972 July, [facility] [place] [facility] [address] [id number] [place] [address]- 4029 July, [facility] [place] [facility] [address] [id number] [place] [address]- 4570 July, [facility] [place] [facility] [address] [id number] [place] [address]- 0659 July, [facility] [place] [facility] [address] [id number] [place] [address]- 7546 July, [facility] [place] [facility] [address] [id number] [place] [address]- 4908 July, [facility] [place] [facility] [address] [id number] [place] [address]- 1462 Jun, [facility] [place] [facility] [address] [id number] [place] [address]- 8348 Jun, [facility] [place] [facility] [address] [id number] [place] [address]- 9541 Jun, [facility] [place] [facility] [address] [id number] [place] [address]- 7793 Jun, [facility] [place] [facility] [address] [id number] [place] [address]- 6586 Jun, [facility] [place] [facility] [address] [id number] [place] [address]- 4472 Jun, [facility] [place] [facility] [address] [id number] [place] [address]- 3767 Jun, [facility] [place] [facility] [address] [id number] [place] [address]- 2718 15 Jun, 2013 [facility] [place] [facility] [address] [id number] [place] [address]- 7126 Jun, [facility] [place] [facility] [address] [id number] [place] [address]- 3746 Jun, [facility] [place] [facility] [address] [id number] [place] [address]- 6373 Jun, [facility] [place] [facility] [address] [id number] [place] [address]- 5396 Jun, [facility] [place] [facility] [address] [id number] [place] [address]- 3575 May, [facility] [place] [facility] [address] [id number] [place] [address]- 6423 May, [facility] [place] [facility] [address] [id number] [place] [address]- 2769 May, [facility] [place] [facility] [address] [id number] [place] [address]- 0928 May, [facility] [place] [facility] [address] [id number] [place] [address]- 3726 May, [facility] [place] [facility] [address] [id number] [place] [address]- 9410 May, [facility] [place] [facility] [address] [id number] [place] [address]- 1491 May, [facility] [place] [facility] [address] [id number] [place] [address]- 1955 May, [facility] [place] [facility] [address] [id number] [place] [address]- 0025 May, [facility] [place] [facility] [address] [id number] [place] [address]- 6579 May, [facility] [place] [facility] [address] [id number] [place] [address]- 9696 May, [facility] [place] [facility] [address] [id number] [place] [address]- 1831 May, [facility] [place] [facility] [address] [id number] [place] [address]- 6961 May, [facility] [place] [facility] [address] [id number] [place] [address]- 6243 May, [facility] [place] [facility] [address] [id number] [place] [address]- 7990 Apr, [facility] [place] [facility] [address] [id number] [place] [address]- 8046 Apr, [facility] [place] [facility] [address] [id number] [place] [address]- 3653 Apr, [facility] [place] [facility] [address] [id number] [place] [address]- 0157 Apr, [facility] [place] [facility] [address] [id number] [place] [address]- 2771 Apr, [facility] [place] [facility] [address] [id number] [place] [address]- 6888 Apr, [facility] [place] [facility] [address] [id number] [place] [address]- 8204 Mar, [facility] [place] [facility] [address] [id number] [place] [address]- 3405 Mar, [facility] [place] [facility] [address] [id number] [place] [address]- 7110 Mar, [facility] [place] [facility] [address] [id number] [place] [address]- 8129 Mar, [facility] [place] [facility] [address] [id number] [place] [address]- 6328 Mar, [facility] [place] [facility] [address] [id number] [place] [address]- 3841 Mar, [facility] [place] [facility] [address] [id number] [place] [address]- 6414 Mar, [facility] [address] [id number] [place] [address]- 0532 Mar, [facility] [address] [id number] [place] [address]- 4973 Mar, [facility] [address] [id number] [place] [address]- 7760 Mar, [facility] [address] [id number] [place] [address]- 4616 Mar, [facility] [address] [id number] [place] [address]- 0848 Mar, [facility] [address] [id number] [place] [address]- 3347 Mar, [facility] [address] [id number] [place] [address]- 2011 Mar, [facility] [address] [id number] [place] [address]- 8306 Feb, [facility] [address] [id number] [place] [address]- 8327 Feb, [facility] [address] [id number] [place] [address]- 1282 Feb, [facility] [address] [id number] [place] [address]- 6552 Feb, [facility] [address] [id number] [place] [address]- 2543 Feb, [facility] [place] [facility] [address] [id number] [place] [address]- 4284 Feb, [facility] [address] [id number] [place] [address]- 7301 Feb, [facility] [address] [id number] [place] [address]- 1484 Feb, [facility] [place] [facility] [address] [id number] [place] [address]- 6901 Feb, 2012 [facility] [place] [facility] [address] [id number] [place]87 Feb, 2012 [facility] [place] [facility] [address] [id number] [place] 5431 Feb, 2012 [facility] [place] [facility] [address] [id number] [place] [address]- 5110 Feb, 2012 [facility] [place] [facility] [address] [id number] [place] [address]- 8064 Feb, 2012 [facility] [place] [facility] [address] [id number] [place] [address]- 1602 Feb, 2012 [facility] [place] [facility] [address] [id number] [place] [address]- 2188 Feb, [facility] [place] [facility] [address] [id number], [place] [address]- 2847 Feb, [facility] [place] [facility] [address] [id number], [place] [address]- 4761 24 Dec, 2012 [facility] [place] [facility] [address] [id number], [place] [address]- 8603 24 Dec, 2012 [facility] [place] [facility] [address] [id number], [place] [address]- 2404 16 Dec, 2012 [facility] [place] [facility] [address] [id number], [place] [address]- 3520 16 Dec, 2012 [facility] [place] [facility] [address] [id number], [place] [address]- 5720 16 Dec, 2012 [facility] [place] [facility] [address] [id number] 3808 16 Dec, 2012 [facility] [place] [facility] [address] [facility] [id number], [place] [address]- 9290 14 Dec, 2012 [facility] [place] [facility] [address] [id number], [place] [address]- 7294 14 Dec, 2012 [facility] [place] [facility] [address] [id number] [place] [address]- 1668 10 Dec, 2012 [facility] [place] [facility] [address] [id number] [place] [address]- 5673 10 Dec, 2012 [facility] [place] [facility] [address] [facility] [id number] [place] [address]- 9602 10 Dec, 2012 [facility] [place] [facility] [address] [id number] [place] [address]- 0579 10 Dec, 2012 [facility] [place] [facility] [address] [id number] [place] [address]- 6142 03 Dec, 2012 [facility] [place] [facility] [address] [id number] [place] [address]- 2266 25 Nov, 2012 [facility] [place] [facility] [address] [id number], [place] [address]- 2828 20 Nov, 2012 [facility] [place] [facility] [address] [id number] [place] [address]- 2232 18 Nov, 2012 [facility] [place] [facility] [address] [id number] [place] [address]- 3801 16 Nov, 2012 [facility] [place] [facility] [address] [facility] [id number] [place] [address]- 5868 12 Nov, 2012 [facility] [place] [facility] [address] [id number] [place] [address]- 0798 11 Nov, 2012 [facility] [place] [facility] [address] [id number], [place] [address]- 0939 05 Nov, 2012 [facility] [place] [facility] [address] [id number], [place] [address] 15 Oct, 2012 [facility] [place] [facility] [address] [facility] [id number], [place] [address] 03 Oct, 2012 [facility] [place] [facility] [address] [facility] [id number], [place] [address] 24 Sep, 2012 [facility] [place] [facility] [address] [id number] [place] [address] 23 Sep, 2012 [facility] [place] [facility] [address] [id number] [place] [address] Sep, [facility] [place] [facility] [address] [id number] [place] [address] 17 Sep, 2012 [facility] [place] [facility] [address] [id number] [place] [address] 15 Sep, 2012 [facility] [place] [facility] [address] [id number] [place] [address] Sep, [facility] [place] [facility] [address] [id number] [place] [address] Sep, [facility] [place] [facility] [address] [id number] [place] [address] Aug, [facility] [place] [facility] [address] [id number] [place] [address] Aug, [facility] [place] [facility] [address] [id number] [place] [address] 16 Aug, 2012 [facility] [place] [facility] [address] [id number] [place] [address] Aug, [facility] [place] [facility] [address] [id number] [place] [address] Aug, [facility] [place] [facility] [address] [id number] [place] [address] Aug, [facility] [place] [facility] [address] [id number] [place] [address] Aug, [facility] [place] [facility] [address] [id number] [place] [address] Aug, [facility] [place] [facility] [address] [id number] [place] [address] July, [facility] [place] [facility] [address] [id number] [place] [address] July, [facility] [address] [id number] [place] [address] July, [facility] [address] [id number] [place] [id number] July, [facility] [address] [id number] [place] [address] July, [facility] [address] [id number] [place] [address] Jun, [facility] [address] [id number] [place] [address] May, [facility] [address] [id number] [place] [address] May, [facility] [address] [id number] [place] [address] May, [facility] [address] [id number] [place] [address] Apr, [facility] [address] [id number] [place] [address] Apr, [facility] [address] [id number] [place] [address] Apr, [facility] [address] [id number] [place] [address] Mar, [facility] [address] [id number], [place] [address] Mar, [facility] [address] [id number] [place] [address] 86[address] Mar, [facility] [address] [id number] [place] [address] Mar, [facility] [address] [id number] [place] [address] 76[address] Mar, [facility] [address] [id number] [place] [address] 477[address] Mar, [facility] [address] [id number] [place] [address] Mar, [facility] [place] [facility] [address] [id number] [place] [address] Feb, [facility] [address] [id number] [place] [address] Feb, [facility] [place] [facility] [address] [id number] [place] [address] Feb, [facility] [address] [id number] [place] [address] Feb, [facility] [place] [facility] [address] [id number] [place] [address] Feb, [facility] [address] [id number] [place] [address] Feb, [facility] [address] [id number] [place] [address] Feb, [facility] [place] [facility] [address] [id number] [place] [address] Feb, [facility] [address] [id number] [place] [address] Jan, [facility] [place] [facility] [address] [id number] [place] [address] Jan, [facility] [place] [facility] [address] [id number] [place] [address] Jan, [facility] [place] [facility] [address] [id number] [place] [address]39 Jan, [facility] [place] [facility] [address] [id number] [place] [address] Jan, [facility] [place] [facility] [address] [id number] [place] [address] 7941 Jan, [facility] [place] [facility] [address] [id number] [place] [address] Jan, [facility] [place] [facility] [address] [id number] [place] [address] 8673 Jan, [facility] [place] [facility] [address] [id number] [place] [address] Jan, [facility] [place] [facility] [address] [id number] [place] [address] Jan, [facility] [place] [facility] [address] [id number] [place] [address] Jan, [facility] [place] [facility] [address] [id number] [place] [address] Jan, [facility] [place] [facility] [address] [id number] [place] [address] 8925 Jan, [facility] [place] [facility] [address] [id number] [place] [address] Jan, [facility] [place] [facility] [address] [id number] [place] [address] Jan, [facility] [place] [facility] [address] [id number] [place] [address]- [address]84 Jan, [facility] [place] [facility] [address] [facility] [id number] [place] [address] Dec, [facility] [place] [facility] [address] [id number], [place] [address] Dec, [facility] [place] [facility] [address] [id number] [place] [address] Dec, [facility] [place] [facility] [address] [id number] [place] [address] Dec, [facility] [place] [facility] [address] [id number] [place] [address] Dec, [facility] [place] [facility] [address] [id number] [address] Dec, [facility] [place] [facility] [address] [id number] [place] [address] Dec, [facility] [place] [facility] [address] [id number] [place] [address] Dec, [facility] [place] [facility] [address] [id number] [place] [address] Dec, [facility] [place] [facility] [address] [id number] [place] [address] 05 Dec, 2011 [facility] [place] [facility] [address] [id number] [place] [address] 18 Nov, 2011 [facility] [place] [facility] [address] [id number] [place] [address] 13 Nov, 2011 [facility] [place] [facility] [address] [id number] [place] [address] 24 Oct, 2011 [facility] [place] [facility] [address] [id number] [place] [address] Oct, [facility] [place] [facility] [address] [id number] [place] [address] Oct, [facility] [place] [facility] [address] [id number] [place] [address] 16 Oct, 2011 [facility] [place] [facility] [address] [id number] [place] [address] Oct, [facility] [place] [facility] [address] [id number] [place] [address] Oct, [facility] [place] [facility] [address] [id number] [place] [address] Oct, [facility] [place] [facility] [address] [id number] [place] [address] Sep, [facility] [place] [facility] [address] [id number] [place] [address] Aug, [facility] [place] [facility] [address] [id number] [place] [address] 18 Aug, 2011 [facility] [address] [id number] [place] [address]48 Aug, [facility] [place] [facility] [address] [id number] [place] [address] Aug, [facility] [address] [id number] [place] [address] Aug, [facility] [place] [facility] [address] [id number] [place] [address] July, [facility] [address] [id number] [place] [address] July, [facility] [address] [id number] [place] [address] July, [facility] [address] [id number] [place] [address] Jun, [facility] [address] [id number] [place] [address] Jun, [facility] [place] [facility] [address] [id number] [place] [address] Jun[facility] [address] [id number] [place] [address]265 Jun, [facility] [place] [facility] [address] [id number] [place] [address] May, [facility] [place] [facility] [address] [id number] [place] [address] 30 May, 2011 [facility] [place] [facility] [address] [id number] [place] [address] 29 May, 2011 [facility] [place] [facility] [address] [id number] [place] [address] May, [facility] [place] [facility] [address] [id number] [place] [address] May, [facility] [place] [facility] [address] [id number] [place] [address]394 22 May, 2011 [facility] [place] [facility] [address] [id number] [place] [address] 12[address] May, [facility] [place] [facility] [address] [id number] [place] [address] 19 May, 2011 [facility] [place] [facility] [address] [id number] [place] [address]408 08 May, 2011 [facility] [place] [facility] [address] [id number] [place] [address]- [address] 05 May, 2011 [facility] [place] [facility] [address] [id number] [place] [address] 89[address] May, [facility] [place] [facility] [address] [id number] [place] [address] May, [facility] [place] [facility] [address] [id number] [place] [address] Mar, [facility] [place] [facility] [address] [id number] [place] [address] Mar, [facility] [place] [facility] [address] [id number] [place] [address] 28 Feb, 2011 [facility] [place] [facility] [address] [id number] [place] [address] Feb, [facility] [place] [facility] [address] [id number] [place] [address]- [address]64 20 Feb, 2011 [facility] [place] [facility] [address] [id number] [place] [address] 15 Feb, 2011 [facility] [place] [facility] [address] [id number] [place] [address] 1366 13 Feb, 2011 [facility] [place] [facility] [address] [id number] [place] [address]178 13 Feb, 2011 [facility] [place] [facility] [address] [id number] [place] [address]- [address]162 13 Feb, 2011 [facility] [place] [facility] [address] [id number] [place] [address]275 Jan, [facility] [place] [facility] [address] [id number] [place] [address] Jan, [facility] [place] [facility] [address] [id number] [place] [address] Jan, [facility] [place] [facility] [address] [id number] [place] [address] 67[address] Jan, [facility] [place] [facility] [address] [id number] [place] [address] Jan, [facility] [place] [facility] [address] [id number] [place] [address] Jan, [facility] [place] [facility] [address] [id number] [place] [address] 0871 Dec, [facility] [place] [facility] [address] [id number] [place] [address]140 Dec, [facility] [place] [facility] [address] [id number] [place] [address]40 Dec, [facility] [place] [facility] [address] [id number] [place] [address] July, [facility] [place] [facility] [address] [id number] [place] [address] July, [facility] [place] [facility] [address] [id number] [place] [address] 08 Feb, 2010 [facility] [place] [facility] [address] [id number] [place] [address] 8813 Jan, [facility] [place] [facility] [address] [id number] [place] [address] Dec, [facility] [place] [facility] [address] [id number], [place] [address] Dec, [facility] [place] [facility] [address] [id number] [place] [address]155 15 Sep, 2009 [facility] [place] [facility] [address] [id number] [place] [address]184 Aug, [facility] [place] [facility] [address] [id number] [place] [address] Jun, [facility] [place] [facility] [address] [id number] [place] [address] 8841 Jun, [facility] [place] [facility] [address] [id number] [place] [address]327 Jan, [facility] [place] [facility] [address] [id number] [place] [address] 9317 Jan, [facility] [place] [facility] [address] [facility] [id number] [place] [address]- 8568 Jan, [facility] [place] [facility] [address] [id number] [place] [address]- 4268 Jan, [facility] [place] [facility] [address] [id number] [place] [address] 4094 Dec, [facility] [place] [facility] [address] [id number] [place] [address]783 Dec, [facility] [place] [facility] [address] [facility] [id number] [place] [address] 60[address] Dec, [facility] [place] [facility] [address] [id number], [place] [address] 75[address] Nov, [facility] [place] [facility] [address] [id number] [place] [address]- 7569 July, [facility] [place] [facility] [address] [id number] [place] [address] 0294 May, [facility] [place] [facility] [address] [id number], [place] [address] Apr, [facility] [place] [facility] [address] [id number], [place] [address] Feb, [facility] [address] [facility] [id number] [place] [address] Dec, IMMUNIZATIONS No Known Immunizations SOCIAL HISTORY Never Assessed REASON FOR VISIT f/u PLAN OF CARE Activity Details Follow Up 2 sessions, 2 weeks apart, 1/2 hour. Reason: VITAL SIGNS MEDICATIONS Unknown Medications RESULTS No Results PROCEDURES Procedure Date Ordered Result Body Site Psychotherapy, patient &/family, 30 minutes, established patient Apr 23, 2017 INSTRUCTIONS MEDICATIONS ADMINISTERED No Known Medications [...]
--- OUTSIDE RECORDS SUMMARY | 2018-06-14 15:06 | XMS REPORT ---
Author Author BEVERLY TAO Organization [facility] Address [address] [place] [address] Care Team Providers Care Cement Tester Assistant Name Role Phone BEVERLY TAO Unavailable PROBLEMS Type Condition ICD9-CM Code [id number] Code Onset Dates Condition Status SNOMED Code Problem Diabetes E11.9 Active 048032517 Problem Lumbar radiculopathy M54.16 Active 822399988 Problem Irritable bowel syndrome with diarrhea K58.0 Active 296064164 Problem New daily persistent headache G44.52 Active 733929980 Problem Acute bilateral low back pain with right-sided sciatica M54.41 Active 849803191 Problem custodial current 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 Z79.891 Active 971910635 Problem Bipolar 1 disorder F31.9 Active 498834898 Problem Hyperlipidemia, unspecified E78.5 Active 97650146 Problem Type 2 diabetes mellitus with complication E11.8 Active 977785625 Problem Post laminectomy syndrome M96.1 Active 47863413 Problem Eye exam normal Z01.00 Active 039736414 Problem Bipolar disorder, in partial remission, most recent episode manic F31.73 Active 61451497 Problem Extreme poverty Z59.5 Active 46458405 Problem Obesity, unspecified 278.00 Active 206120890 Problem 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 Active 03937141 Problem Hyperlipidemia 272.4 Active 44490318 Problem Non compliance with medical treatment Z91.19 Active [id number] ALLERGIES No Information ENCOUNTERS Encounter Location Date Diagnosis [facility] [address] [address] Oct, [facility] [address] [address] Sep, [facility] [id number] [address] Aug, [facility] [address], [place] [address] Aug, [facility] [address], [place] [address] Aug, [facility] [address], [place] [address] 8189 Aug, Bipolar 1 disorder F31.9 [facility] [id number] [place] [address] 23417- 5777 Aug, [facility] [id number] [place] [address] 63555- 2470 Aug, [facility] [address] [place] [address] 56760- 6094 Aug, Bipolar 1 disorder F31.9 ; 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 and Extreme poverty Z59.5 [facility] [address] [place] [address] 33567- 5677 July, Type 2 diabetes mellitus with complication E11.8 [facility] [address], [place] [address] 8[address] July, Bipolar 1 disorder F31.9 ; 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 and Extreme poverty Z59.5 [facility] [address] [address] 6966 May, Urinary tract infection without hematuria, site unspecified N39.0 [place] [id number] [place] [address] 72457- 3266 May, Bipolar 1 disorder F31.9 ; 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 and Extreme poverty Z59.5 [place] [id number] [place] [address] 93159- 3971 28 Apr, 2017 Diabetes E11.9 and Breast cancer screening Z12.31 [place] [id number] [place] [address] 68151- 4934 20 Apr, 2017 Bipolar 1 disorder F31.9 and 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 [place] [id number] [place] [address] 67421- 2240 Mar, Bipolar 1 disorder F31.9 ; 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 and Extreme poverty Z59.5 [place] [id number] [place] [address] 42852- 3805 Mar, New daily persistent headache G44.52 ; Leg pain 729.5 and History of carpal tunnel release Z98.890 [place] [id number] [place] [address] 84181- 7008 Mar, Hyperlipidemia, unspecified E78.5 [place] [id number] [place] [address] 77701- 9947 Mar, Bipolar 1 disorder F31.9 ; 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 and Extreme poverty Z59.5 [place] [address] [place] [address] 56572- 5563 Feb, Bipolar 1 disorder F31.9 ; 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 and Extreme poverty Z59.5 [place] [id number] [place] [address] 72035- 6961 Feb, Diabetes E11.9 [place] [id number] [place] [address] 74622- 7168 Feb, Viral syndrome B34.9 [place] [address] [place] [address] 32426- 5478 Jan, Other viral agents as the cause of diseases classified elsewhere B97.89 and Acute upper respiratory infection, unspecified J06.9 [place] [id number] [place] [address] 74114- 4822 16 Jan, 2017 Bipolar 1 disorder F31.9 and 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 [place] [id number] [place] [address] 05392- 5523 Jan, Bipolar 1 disorder F31.9 ; 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 and Extreme poverty Z59.5 [place] [address] 02804- 9615 Dec, Diabetes E11.9 [place] [address] 93589- 4578 Dec, Diabetes E11.9 and Encounter for immunization Z23 [place] [address] 19281- 6589 Dec, Bipolar 1 disorder F31.9 ; 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 and Extreme poverty Z59.5 [place] [id number] [place] [address] 83654- 6130 Dec, Back pain M54.9 [place] [id number] [place] [address] 38947- 6224 07 Nov, 2016 [place] [id number] [place] [address] 27202- 5720 Nov, Bipolar 1 disorder F31.9 ; 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 and Extreme poverty Z59.5 [place] [address] 52345- 3269 05 Nov, 2016 Bipolar 1 disorder F31.9 ; 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 and Extreme poverty Z59.5 [place] [id number] [place] [address] 05129- 8980 Oct, 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 and Bipolar 1 disorder F31.9 [facility] [address] [place] [address] 45628- 6192 Oct, Bipolar 1 disorder F31.9 ; 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 and Extreme poverty Z59.5 [place] [address] [place] [address] 22291- 0722 Oct, Back pain M54.9 [place] [id number] [place] [address] 32491- 4236 Oct, 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 and Type 2 diabetes mellitus with complication E11.8 [place] [id number] [place] [address] 90873- 0258 Sep, Bipolar 1 disorder F31.9 ; 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 and Extreme poverty Z59.5 [place] [id number] [place] [address] 55399- 6130 Sep, 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 and Bipolar 1 disorder F31.9 [place] [id number] [place] [address] 38719- 7002 Sep, Bipolar 1 disorder F31.9 ; 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 and Extreme poverty Z59.5 [place] [address] [place] [address] 87617- 5064 Aug, Diabetes E11.9 ; Hyperlipidemia, unspecified E78.5 and Lumbar radiculopathy M54.16 [place] [address], [place] [address]- 1795 Aug, Bipolar 1 disorder F31.9 ; 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 and Extreme poverty Z59.5 [place] [address] [place] [address] 50606- 9944 Aug, [place] [address] [place] [address] 87987- 5765 Aug, [place] [id number] [place] [address] 59294- 8164 Aug, [facility] [id number] [place] [address] 22196- 7211 July, [facility] [id number] [place] [address] 94896- 3984 July, Acute bilateral low back pain with right-sided sciatica M54.41 [facility] [id number] [place] [address] 71022- 4535 July, Bipolar 1 disorder F31.9 ; 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 and Extreme poverty Z59.5 [place] [id number] [place] [address] 89198- 4767 July, Back pain M54.9 and Diabetes E11.9 [place] [id number] [place] [address] 27780- 9114 Jun, Bipolar 1 disorder F31.9 ; 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 and Extreme poverty Z59.5 [place] [id number] [place] [address] 72848- 2162 Jun, Bipolar 1 disorder F31.9 ; 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 and Extreme poverty Z59.5 [place] [id number] [place] [address] 56205- 1192 May, Visit for pelvic exam Z01.419 ; Acute vaginitis N76.0 and Diabetes E11.9 [facility] [address] [place] [address] 16282- 5697 May, Bipolar 1 disorder F31.9 ; 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 and Extreme poverty Z59.5 [facility] [id number] [place] [address] 04893- 7730 May, [place] [id number] [place] [address] 67072- 8928 May, [facility] [id number] [place] [address] 28993- 8766 May, Bipolar 1 disorder F31.9 ; 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 and Extreme poverty Z59.5 [place] [id number] [place] [address] 16507- 5115 May, Hyperlipidemia, unspecified E78.5 [place] [id number] [place] [address] 05665- 7293 13 Apr, 2016 Breast cancer screening Z12.39 [place] [address] 49338- 3822 Mar, [place] [id number] [place] [address] 33273- 1097 Mar, Bipolar disorder, current episode mixed, unspecified F31.60 [place] [id number] [place] [address] 60129- 6420 Mar, Bipolar 1 disorder F31.9 ; 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 and Extreme poverty Z59.5 [place] [id number] [place] [address] 94808- 9947 Feb, Acute nasopharyngitis J00 [place] [address] 37710- 0960 27 Feb, 2016 Dental examination Z01.20 [place] [id number] [place] [address] 86067- 2761 Feb, Dental cavities K02.9 and Chronic periodontitis, unspecified K05.30 [place] [id number] [place] [address] 33896- 3935 13 Feb, 2016 Low back pain M54.5 and Extreme poverty Z59.5 [place] [address] 88112- 3862 Feb, [place] [id number] [place] [address] 69272- 0002 05 Feb, 2016 Routine gynecological examination V72.31 ; Breast cancer screening Z12.39 and Herpes simplex type 1 infection B00.9 [place] [id number] [place] [address] 39707- 0517 Feb, Diabetes E11.9 [place] [id number] [place] [address] [address] Feb, Encounter for dental examination and cleaning without abnormal findings Z01.20 [place] [id number] [place] [address] 49651- 3201 Jan, Hyperlipidemia, unspecified E78.5 [place] [id number] [place] [address] 97511- 1172 Jan, Bipolar 1 disorder F31.9 ; 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 and Extreme poverty Z59.5 [place] [id number] [place] [address] 63411- 3464 18 Jan, 2016 Diabetes E11.9 [place] [id number] [place] [address] 26185- 4069 17 Jan, 2016 Diabetes E11.9 [place] [id number] [place] [address] 63551- 4635 14 Dec, 2015 Bipolar 1 disorder F31.9 ; 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 and Extreme poverty Z59.5 [place] [id number] [place] [address] 69860- 2469 13 Dec, 2015 Bipolar disorder, current episode mixed, unspecified F31.60 and 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 [place] [id number] [place] [address] 42983- 7949 16 Nov, 2015 Bipolar 1 disorder F31.9 ; 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 ; Extreme poverty Z59.5 and Non compliance with medical treatment Z91.19 [place] [id number] [place] [address] 85487- 4445 Oct, [place] [id number] [place] [address] 67848- 0753 Oct, Dental caries K02.9 [place] [address] [place] [address]- 2861 Oct, Low back pain M54.5 and Other chronic pain G89.29 [place] [address] 93383- 0839 Oct, Bipolar 1 disorder F31.9 ; 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 ; Extreme poverty Z59.5 and Non compliance with medical treatment Z91.19 [place] [address] 31129- 1999 Oct, [place] [address] 88408- 8939 Oct, [place] [address] 77103- 6304 Oct, Dental examination Z01.20 [place] [address] 08656- 4176 Oct, Bipolar 1 disorder F31.9 ; 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 ; Extreme poverty Z59.5 and Non compliance with medical treatment Z91.19 [place] [id number] [place] [address] 96893- 1830 Oct, [place] [address] 02624- 5158 Sep, Type 2 diabetes mellitus with complication E11.8 [place] [id number] [place] [address] 64817- 4521 Sep, Bipolar disorder, current episode mixed, unspecified F31.60 [place] [id number] [place] [address] 47796- 2195 Sep, Bipolar disorder, current episode mixed, unspecified F31.60 [place] [id number] [place] [address] 34124- 3498 Sep, Bipolar disorder, in partial remission, most recent episode manic F31.73 ; 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 ; Extreme poverty Z59.5 and Non compliance with medical treatment Z91.19 [place] [address], [place] [address]- 0087 15 Aug, 2015 Bipolar disorder, in partial remission, most recent episode manic F31.73 ; 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 ; Extreme poverty Z59.5 and Non compliance with medical treatment Z91.19 [place] [address] [place] [address] 60716- 6737 Aug, Bipolar disorder, in partial remission, most recent episode manic F31.73 ; 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 ; Extreme poverty Z59.5 and Non compliance with medical treatment Z91.19 [place] [address] [place] [address] 32711- 0065 Aug, [place] [id number] [place] [address] 91737- 5665 July, Bipolar disorder, in partial remission, most recent episode manic F31.73 ; 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 ; Extreme poverty Z59.5 and Non compliance with medical treatment Z91.19 [place] [address] [place] [address] 47443- 1300 July, Bipolar disorder, current episode mixed, unspecified F31.60 [place] [address] [place] [address] 01751- 7049 July, Bipolar disorder, in partial remission, most recent episode manic F31.73 ; 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 ; Extreme poverty Z59.5 and Non compliance with medical treatment Z91.19 [place] [address] [place] [address] 35567- 2712 July, custodial current 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 Z79.891 and Chronic pain G89.29 [place] [id number] [place] [address] 82652- 6880 Jun, custodial current 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 Z79.891 and Bipolar 1 disorder F31.9 [place] [id number] [place] [address] 63517- 7668 Jun, [facility] [address], [place] [address]- 9938 Jun, [facility] [address], [place] [address]- 5461 Jun, [facility] [address], [place] [address]- 8450 Jun, Bipolar disorder, in partial remission, most recent episode manic F31.73 ; 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 and Non compliance with medical treatment Z91.19 [facility] [address], [place] [address]- 0926 May, Bipolar disorder, in partial remission, most recent episode manic F31.73 ; 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 and Non compliance with medical treatment Z91.19 [place] [address], [place] [address]- 0150 May, Bipolar disorder, in partial remission, most recent episode manic F31.73 [place] [address], [place] [address]- 6508 May, Diabetes E11.9 and Chronic pain G89.29 [place] [address], [place] [address]- 3335 May, [place] [address], [place] [address]- 8093 May, Bipolar disorder, in partial remission, most recent episode manic F31.73 ; Non compliance with medical treatment Z91.19 and 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 [place] [address], [place] [address]- 0793 May, Type 2 diabetes mellitus with complication E11.8 and Back pain M54.9 [facility] [address], [place] [address]- 7335 May, Bipolar disorder, in partial remission, most recent episode manic F31.73 and 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 [place] [address], [place] [address]- 4653 24 Apr, 2015 [place] [id number] [place] [address] 29119- 9819 Apr, [place] [id number] [place] [address] 87757- 8963 Apr, [place] [id number] [place] [address] 75698- 4175 09 Apr, 2015 Diabetes E11.9 ; Irritable bowel syndrome with diarrhea K58.0 and Lumbar radiculopathy M54.16 [place] [id number] [place] [address] 91763- 3059 02 Apr, 2015 Breast screening Z12.39 [place] [id number] [place] [address] 01677- 0197 02 Apr, 2015 Bipolar disorder, in partial remission, most recent episode manic F31.73 ; Non compliance with medical treatment Z91.19 and 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 [place] [id number] [place] [address] 59815- 4961 Mar, Edema, unspecified type R60.9 and Type 2 diabetes mellitus with complication E11.8 [place] [address] [place] [address] 69850- 6744 Mar, Bipolar disorder, in partial remission, most recent episode manic F31.73 ; Non compliance with medical treatment Z91.19 ; 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 and Extreme poverty Z59.5 [place] [address] [place] [address] 46872- 2660 14 Mar, 2015 Bipolar disorder, current episode mixed, unspecified F31.60 ; 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 ; Extreme poverty Z59.5 and Generalized anxiety disorder F41.1 [place] [address] [place] [address] 44254- 2789 12 Mar, 2015 Bipolar disorder, in partial remission, most recent episode manic F31.73 ; 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 and Extreme poverty Z59.5 [place] [address] [place] [address] 95095- 7746 14 Feb, 2015 Bipolar disorder, in partial remission, most recent episode manic F31.73 ; 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 and Extreme poverty Z59.5 [place] [id number] [place] [address] 86735- 7552 Feb, Bipolar disorder, in partial remission, most recent episode manic F31.73 ; 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 and Extreme poverty Z59.5 [place] [id number] [place] [address] 89560- 0494 Feb, [place] [address] 807219- 2857 Jan, Type 2 diabetes mellitus with complication E11.8 and [place] R23.[address] 82194- 3059 Jan, Type 2 diabetes mellitus with complication E11.8 ; Edema, unspecified R60.9 ; Petechiae R23.3 and Diabetes E11.9 [place] [id number] [place] [address] 35036- 3777 Jan, Bipolar disorder, in partial remission, most recent episode manic F31.73 ; 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 and Extreme poverty Z59.5 [place] [id number] [place] [address] 45522- 9803 Jan, Bipolar disorder, in partial remission, most recent episode manic F31.73 ; 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 and Extreme poverty Z59.5 [place] [id number] [place] [address] 50562- 1008 Dec, Bipolar disorder, in partial remission, most recent episode manic F31.73 [place] [id number] [place] [address] 40227- 3170 Dec, Edema, due to unspecified malnutrition type, unspecified edema R60.9 and Essential hypertension I10 [facility] [id number] [place] [address] 60790- 2451 Dec, Bipolar disorder, in partial remission, most recent episode manic F31.73 [facility] [id number] [place] [address] 83158- 9341 Nov, Bipolar I disorder, most recent episode (or current) mixed, unspecified 296.60 [facility] [id number] [place] [address] 42109- 6563 Nov, Stress incontinence, female 625.6 ; Back pain 724.5 and Leg pain 729.5 [facility] [address] 54590- 1851 Nov, Generalized anxiety disorder 300.02 and Bipolar II disorder 296.89 [facility] [address] 08244- 2894 Nov, Bipolar I disorder, most recent episode (or current) mixed, unspecified 296.60 [facility] [id number] [place] [address] 45574- 2445 Oct, [facility] [address] 28442- 0012 Oct, [facility] [id number] [place] [address] 27082- 0162 Oct, [facility] [id number] [place] [address] 53764- 4553 Oct, Bipolar I disorder, most recent episode (or current) mixed, unspecified 296.60 [facility] [id number] [place] [address] 92629- 1874 Sep, Diabetes 250.00 [facility] [id number] [place] [address] 40415- 4325 Sep, Bipolar I disorder, most recent episode (or current) mixed, unspecified 296.60 [facility] [address] [place] [address]- 1758 Sep, [facility] [address], [place] [address]- 9631 Sep, [facility] [id number] [place] [address] 520310- 9182 Sep, Bipolar I disorder, most recent episode (or current) mixed, unspecified 296.60 [facility] [id number] [place] [address] 43940- 0744 Sep, Bipolar I disorder, most recent episode (or current) mixed, unspecified 296.60 [facility] [id number] [place] [address] 00002- 6730 Sep, [facility] [id number] [place] [address] 11052- 3762 Sep, Anxiety 300.00 ; Diabetes 250.00 and Hyperlipidemia 272.4 [facility] [id number] [place] [address] 63654- 3482 Aug, [facility] [id number] [place] [address] 21838- 6126 Aug, [facility] [id number] [place] [address] 00071- 8282 Aug, [facility] [address] [address]- 6115 Aug, Bipolar I disorder, most recent episode (or current) mixed, unspecified 296.60 [facility] [address] [address]- 6688 Aug, Generalized anxiety disorder 300.02 and Bipolar II disorder 296.89 [facility] [id number] [place] [address] 80650- 0895 July, Bipolar I disorder, most recent episode (or current) mixed, unspecified 296.60 [facility] [id number] [place] [address] 81116- 3649 July, Cough 786.2 [facility] [address] [address] 3996 July, Bipolar I disorder, most recent episode (or current) mixed, unspecified 296.60 [facility] [id number] [address] 7414 30 Jun, 2014 Diabetes 250.00 [facility] [id number] [place] [address] 08363- 7674 14 Jun, 2014 [facility] [address] [address]- 2251 Jun, [facility] [id number] [place] [address] 42090- 9189 May, [facility] [address] [address]- 4666 May, [facility] [id number] [place] [address] 84917- 2198 May, [facility] [address] [address]- 8868 May, [facility] [address] [address]- 0464 May, [facility] [address] [address]- 6033 May, [facility] [address] [address]- 2935 Apr, [facility] [address] 8020 Apr, [facility] [address] 9063 Apr, [facility] [address] 2926 Apr, [facility] [address] [address]- 7208 Apr, [facility] [place] [facility] [address] [id number] [place] [address]- 5312 Apr, [facility] [place] [facility] [address] [id number] [place] [address]- 9110 Apr, [facility] [place] [facility] [address] [facility] [id number] [place] [address]- 0140 Apr, [facility] [place] [facility] [address] [id number] [place] [address]- 9953 Mar, [facility] [place] [facility] [address] [id number] [place] [address]- 8205 Mar, [facility] [place] [facility] [address] [id number] [place] [address]- 0048 Mar, [facility] [place] [facility] [address] [facility] [id number] [place] [address]- 4480 Mar, [facility] [place] [facility] [address] [facility] [id number] [place] [address]- 9101 Mar, [facility] [place] [facility] [address] [facility] [id number] [place] [address]- 5363 Mar, [facility] [place] [facility] [address] [facility] [id number] [place] [address]- 9949 Mar, [facility] [place] [facility] [address] [facility] [id number], [place] [address]- 9921 Mar, [facility] [place] [facility] [address] [id number] [place] [address]- 1630 Feb, [facility] [place] [facility] [address] [id number] [place] [address]- 4436 Feb, [facility] [place] [facility] [address] [id number] [place] [address]- 0854 Feb, [facility] [place] [facility] [address] [facility] [id number] [place] [address]- 1930 Feb, [facility] [place] [facility] [address] [id number] [place] [address]- 7253 Feb, [facility] [place] [facility] [address] [id number] [place] [address]- 9083 Feb, [facility] [place] [facility] [address] [id number] [place] [address]- 2396 Feb, [facility] [place] [facility] [address] [id number] [place] [address]- 9686 Feb, [facility] [place] [facility] [address] [id number] [place] [address]- 0773 Feb, [facility] [place] [facility] [address] [id number] [place] [address]- 9686 Feb, [facility] [place] [facility] [address] [id number] [place] [address]- 0351 Jan, [facility] [place] [facility] [address] [id number] [place] [address]- 7588 Jan, [facility] [place] [facility] [address] [id number] [place] [address]- 9716 Jan, [facility] [place] [facility] [address] [id number] [place] [address]- 2355 Jan, [facility] [place] [facility] [address] [id number] [place] [address]- 8811 Jan, [facility] [place] [facility] [address] [id number] [place] [address]- 3793 Jan, [facility] [place] [facility] [address] [id number] [place] [address]- 0240 Jan, [facility] [place] [facility] [address] [id number] [place] [address]- 3399 Jan, [facility] [place] [facility] [address] [id number] [place] [address]- 9104 Jan, [facility] [place] [facility] [address] [id number] [place] [address]- 9651 Jan, [facility] [place] [facility] [address] [id number] [place] [address]- 7781 Jan, [facility] [place] [facility] [address] [id number] [place] [address]- 1330 Jan, [facility] [place] [facility] [address] [id number] [place] 8923 Jan, [facility] [place] [facility] [address] [id number] [place] [address]- 8427 Jan, [facility] [place] [facility] [address] [id number] [place] [address]- 9454 Jan, [facility] [place] [facility] [address] [id number] [place] [address]- 9794 Dec, [facility] [place] [facility] [address] [id number] [place] [address]- 9279 Dec, [facility] [place] [facility] [address] [id number] [address]- 7088 Dec, [facility] [place] [facility] [address] [id number] [place] [address]- 0535 Dec, [facility] [place] [facility] [address] [id number][place] [address]- 7795 Dec, [facility] [place] [facility] [address] [id number][place] [address]- 7592 Dec, [facility] [place] [facility] [address] [id number][place] [address]- 2553 Dec, [facility] [place] [facility] [address] [id number] [place] [address]- 6023 Dec, [facility] [place] [facility] [address] [id number][place] [address]- 8786 Nov, [facility] [place] [facility] [address] [id number][place] [address]- 7247 Nov, [facility] [place] [facility] [address] [id number] [place] [address]- 2996 10 Sep, 2013 [facility] [place] [facility] [address] [id number] [place] [address]- 4086 10 Sep, 2013 [facility] [place] [facility] [address] [id number] [place] [address]- 0526 08 Sep, 2013 [facility] [place] [facility] [address] [id number] [place] [address]- 3995 08 Sep, 2013 [facility] [place] [facility] [address] [id number] [place] [address]- 6102 08 Sep, 2013 [facility] [place] [facility] [address] [id number] [place] [address]- 2450 08 Sep, 2013 [facility] [place] [facility] [address] [id number] [place] [address]- 7547 08 Sep, 2013 [facility] [place] [facility] [address] [id number] [place] [address]- 5622 08 Sep, 2013 [facility] [place] [facility] [address] [id number] [place] [address]- 2220 04 Sep, 2013 [facility] [place] [facility] [address] [id number] [place] [address]- 6324 04 Sep, 2013 [facility] [place] [facility] [address] [id number] [place] [address]- 2811 03 Nov, 2013 [facility] [place] [facility] [address] [id number] [place] [address]- 6112 02 Nov, 2013 [facility] [place] [facility] [address] [id number] [place] [address]- 2545 Nov, 2013 [facility] [place] [facility] [address] [id number] [place] [address]- 3133 Oct, [facility] [place] [facility] [address] [id number] [place] [address]- 2805 Oct, [facility] [place] [facility] [address] [id number] [place] [address]- 1413 Oct, [facility] [place] [facility] [address] [id number] [place] [address]- 2278 Oct, [facility] [place] [facility] [address] [id number] [place] [address]- 5479 Oct, [facility] [place] [facility] [address] [id number] [place] [address]- 3701 Oct, [facility] [place] [facility] [address] [id number] [place] [address]- 1795 Oct, [facility] [place] [facility] [address] [id number] [place] [address]- 2667 Oct, [facility] [place] [facility] [address] [id number] [place] [address]- 7054 Oct, [facility] [place] [facility] [address] [id number] [place] [address]- 2539 Oct, [facility] [place] [facility] [address] [id number] [place] [address]- 9972 Oct, [facility] [place] [facility] [address] [id number] [place] [address]- 1394 Oct, [facility] [place] [facility] [address] [id number] [place] [address]- 5984 Oct, [facility] [place] [facility] [address] [id number] [place] [address]- 9833 Oct, [facility] [place] [facility] [address] [id number] [place] [address]- 4071 Sep, [facility] [place] [facility] [address] [id number] [place] [address]- 5920 Sep, [facility] [place] [facility] [address] [id number] [place] [address]- 3250 Sep, [facility] [place] [facility] [address] [id number] [place] [address]- 9892 Sep, [facility] [place] [facility] [address] [id number] [place] [address]- 4716 Sep, [facility] [place] [facility] [address] [id number] [place] [address]- 4801 Sep, [facility] [place] [facility] [address] [id number] [place] [address]- 4942 Sep, [facility] [place] [facility] [address] [id number] [place] [address]- 7880 Sep, [facility] [place] [facility] [address] [id number] [place] [address]- 8484 Aug, [facility] [place] [facility] [address] [id number] [place] [address]- 1336 Aug, [facility] [place] [facility] [address] [id number] [place] [address]- 5801 Aug, [facility] [place] [facility] [address] [id number] [place] [address]- 1991 Aug, [facility] [place] [facility] [address] [id number] [place] [address]- 0900 Aug, [facility] [place] [facility] [address] [id number] [place] [address]- 0528 Aug, [facility] [place] [facility] [address] [id number] [place] [address]- 6638 Aug, [facility] [place] [facility] [address] [id number] [place] [address]- 0973 Aug, [facility] [place] [facility] [address] [id number] [place] [address]- 5348 July, [facility] [place] [facility] [address] [id number] [place] [address]- 7858 July, [facility] [place] [facility] [address] [id number] [place] [address]- 2851 July, [facility] [place] [facility] [address] [id number] [place] [address]- 0856 July, [facility] [place] [facility] [address] [id number] [place] [address]- 1042 July, [facility] [address] [id number] [place] [address]- 3575 July, [facility] [address] [id number] [place] [address]- 2450 July, [facility] [address] [id number] [place] [address]- 9990 July, [facility] [address] [id number] [place] [address]- 9037 Jun, [facility] [address] [id number] [place] [address]- 0822 Jun, [facility] [address] [id number] [place] [address]- 0309 Jun, [facility] [address] [id number] [place] [address]- 7509 Jun, [facility] [address] [id number] [place] [address]- 3141 Jun, [facility] [address] [id number] [place] [address]- 3910 Jun, [facility] [address] [id number] [place] [address]- 4146 Jun, [facility] [place] [facility] [address] [id number] [place] [address]- 6324 Jun, [facility] [address] [id number] [place] [address]- 1582 Jun, [facility] [place] [facility] [address] [id number] [place] [address]- 6962 Jun, [facility] [place] [facility] [address] [id number] [place] [address]- 0860 Jun, [facility] [place] [facility] [address] [id number] [place] [address]- 9489 Jun, [facility] [place] [facility] [address] [id number] [place] [address]- 2208 May, [facility] [place] [facility] [address] [id number] [place] [address]- 8402 May, [facility] [place] [facility] [address] [id number] [place] [address]- 0800 May, [facility] [place] [facility] [address] [id number] [place] [address]- 8160 May, [facility] [place] [facility] [address] [id number] [place] [address]- 4448 May, [facility] [place] [facility] [address] [id number] [place] [address]- 1794 May, [facility] [place] [facility] [address] [id number] [place] [address]- 0286 May, [facility] [place] [facility] [address] [id number] [place] [address]- 9625 May, [facility] [place] [facility] [address] [id number] [place] [address]- 5646 May, [facility] [place] [facility] [address] [id number] [place] [address]- 6173 May, [facility] [place] [facility] [address] [id number] [place] [address]- 8145 May, [facility] [place] [facility] [address] [id number] [place] [address]- 8672 May, [facility] [place] [facility] [address] [id number] [place] [address]- 6219 May, [facility] [place] [facility] [address] [id number] [place] [address]- 7504 May, [facility] [place] [facility] [address] [id number] [place] [address]- 0369 Apr, [facility] [place] [facility] [address] [id number], [place] [address]- 2119 Apr, [facility] [place] [facility] [address] [id number] [place] [address]- 6029 Apr, [facility] [place] [facility] [address] [id number] [place] [address]- 7496 Apr, [facility] [place] [facility] [address] [id number] [place] [address]- 5566 Apr, [facility] [place] [facility] [address] [id number] [place] [address]- 6021 Apr, [facility] [place] [facility] [address] [id number] [place] [address]- 6386 Mar, [facility] [place] [facility] [address] [id number] [place] [address]- 9867 Mar, [facility] [place] [facility] [address] [id number] [place] [address]- 2165 Mar, [facility] [place] [facility] [address] [id number] [place] [address]- 6552 Mar, [facility] [place] [facility] [address] [id number] [place] [address]- 8254 Mar, [facility] [place] [facility] [address] [id number] [place] [address]- 4746 Mar, [facility] [place] [facility] [address] [id number] [place] [address]- 2014 Mar, [facility] [place] [facility] [address] [id number] [place] [address]- 5100 Mar, [facility] [place] [facility] [address] [id number] [place] [address]- 8655 Mar, [facility] [place] [facility] [address] [id number] [place] [address]- 1162 Mar, [facility] [place] [facility] [address] [id number] [place] [address]- 9748 Mar, [facility] [place] [facility] [address] [id number] [place] [address]- 6994 Mar, [facility] [address] [id number] [place] [address]- 0063 Mar, [facility] [address] [id number] [place] [address]- 2661 Mar, [facility] [address] [id number] [place] [address]- 6296 Feb, [facility] [address] [id number] [place] [address]- 3680 Feb, [facility] [address] [id number] [place] [address]- 3591 Feb, [facility] [address] [id number] [place] [address]- 1288 Feb, [facility] [address] [id number] [place] [address]- 6191 Feb, [facility] [address] [id number] [place] [address]- 9990 Feb, [facility] [address] [id number] [place] [address]- 3138 Feb, [facility] [address] [id number] [place] [address]- 2920 Feb, [facility] [place] [facility] [address] [id number] [place] [address]- 2719 Feb, [facility] [place] [facility] [address] [id number] [place] [address]- 9229 Feb, [facility] [place] [facility] [address] [id number] [place] [address]- 9931 Feb, [facility] [address] [id number] [place] [address]- 5832 Feb, [facility] [place] [facility] [address] [id number], [place] [address]- 2908 05 Feb, 2012 [facility] [place] [facility] [address] [id number] [place] [address]- 4851 05 Feb, 2012 [facility] [place] [facility] [address] [id number], [place] [address]- 3699 05 Feb, 2012 [facility] [place] [facility] [address] [id number] [place] [address]- 6591 05 Feb, 2012 [facility] [place] [facility] [address] [id number], [place] [address]- 4088 24 Dec, 2012 [facility] [place] [facility] [address] [id number] [place] [address]- 9161 24 Dec, 2012 [facility] [place] [facility] [address] [id number], [place] [address]- 9706 16 Dec, 2012 [facility] [place] [facility] [address] [id number], [place] [address]- 3451 16 Dec, 2012 [facility] [place] [facility] [address] [id number], [place] [address]- 8232 16 Dec, 2012 [facility] [place] [facility] [address] [id number], [place] [address]- 7657 16 Dec, 2012 [facility] [place] [facility] [address] [id number], [place] [address]- 1221 14 Dec, 2012 [facility] [place] [facility] [address] [id number], [place] [address]- 7195 14 Dec, 2012 [facility] [place] [facility] [address] [id number], [place] [address]- 1407 10 Dec, 2012 [facility] [place] [facility] [address] [id number], [place] [address]- 3908 10 Dec, 2012 [facility] [place] [facility] [address] [id number], [place] [address]- 0325 10 Dec, 2012 [facility] [place] [facility] [address] [id number], [place] [address]- 0657 10 Dec, 2012 [facility] [place] [facility] [address] [id number] [place] [address]- 8837 03 Dec, 2012 [facility] [address] [id number] [place] [address] 25 Nov, 2012 [facility] [place] [facility] [address] [id number] [place] [address] 20 Nov, 2012 [facility] [address] [id number] [place] [address] 18 Nov, 2012 [facility] [address] [id number] [place] [address] 16 Nov, 2012 [facility] [address] [id number] [place] [address] 12 Nov, 2012 [facility] [address] [id number] [place] [address] 11 Nov, 2012 [facility] [address] [id number] [place] [address] 05 Nov, 2012 [facility] [address] [id number] [place] [address] 15 Oct, 2012 [facility] [address] [id number] [place] [address] Oct, [facility] [address] [id number] [place] [address] Sep, [facility] [place] [facility] [address] [id number] [place] [address] Sep, [facility] [address] [id number] [place] [address] Sep, [facility] [place] [facility] [address] [id number] [place] [address] Sep, [facility] [place] [facility] [address] [id number] [place] [address]- [address] 15 Sep, 2012 [facility] [place] [facility] [address] [id number] [place] [address] Sep, [facility] [address] [id number] [place] [address]- [address] 08 Sep, 2012 [facility] [place] [facility] [address] [id number] [place] [address]- [address] Aug, [facility] [place] [facility] [address] [id number] [place] [address] Aug, [facility] [place] [facility] [address] [id number] [place] [address]- [address] 16 Aug, 2012 [facility] [place] [facility] [address] [id number] [place] [address]- [address] Aug, [facility] [place] [facility] [address] [id number] [place] [address]- [address]298 Aug, [facility] [place] [facility] [address] [id number] [place] [address]- [address] Aug, [facility] [place] [facility] [address] [id number] [place] [address] 69[address] Aug, [facility] [place] [facility] [address] [id number] [place] [address]- [address] Aug, [facility] [place] [facility] [address] [id number], [place] [address] July, [facility] [place] [facility] [address] [id number] [place] [address] July, [facility] [place] [facility] [address] [id number] [place] [address]- [address] July, [facility] [place] [facility] [address] [id number] [place] [id number] July, [facility] [place] [facility] [address] [id number] [place] [address] 6[address] July, [facility] [place] [facility] [address] [id number] [place] [address]- [address] Jun, [facility] [place] [facility] [address] [id number] [place] [address]- [address] 26 May, 2012 [facility] [address] [id number] [place] [address] 27[address] May, [facility] [address] [id number] [place] [address] May, [facility] [address] [id number] [place] [address] 70[address] Apr, [facility] [address] [id number] [place] [address] 87[address] Apr, [facility] [address] [id number] [place] [address] Apr, [facility] [address] [id number] [place] [address]- 68[address] Mar, [facility] [address] [id number] [place] [address]- [address] Mar, [facility] [address] [id number] [place] [address] Mar, [facility] [address] [id number] [place] [address] Mar, [facility] [address] [id number] [place] [address]- 9339 Mar, [facility] [address] [id number] [place] [address]- 7716 Mar, [facility] [address] [id number] [place] [address]- 1651 Mar, [facility] [address] [id number] [place] [address]- 9597 Feb, [facility] [place] [facility] [address] [id number] [place] [address]- [address] Feb, [facility] [address] [id number] [place] [address]- 0896 Feb, [facility] [place] [facility] [address] [id number] [place] [address]- 8860 Feb, [facility] [place] [facility] [address] [id number] [place] [address] 76[address] Feb, [facility] [place] [facility] [address] [id number] [place] [address] Feb, [facility] [place] [facility] [address] [id number] [place] [address]- 0787 Feb, [facility] [place] [facility] [address] [id number] [place] [address]- 5147 Feb, [facility] [place] [facility] [address] [id number] [place] [address]- 8149 Jan, [facility] [place] [facility] [address] [id number] [place] [address] 8[address] Jan, [facility] [place] [facility] [address] [id number] [place] [address]- 99[address] Jan, [facility] [place] [facility] [address] [id number] [place] [address] 49[address] Jan, [facility] [place] [facility] [address] [id number] [place] [address]- [address] Jan, [facility] [place] [facility] [address] [id number] [place] [address]- [address] Jan, [facility] [place] [facility] [address] [id number] [place] [address]- 655[address] Jan, [facility] [place] [facility] [address] [id number] [place] [address]- 4160 Jan, [facility] [place] [facility] [address] [id number] [place] [address] 5265 Jan, [facility] [place] [facility] [address] [id number] [place] [address]- [address] Jan, [facility] [facility] [address] [id number] [place] [address] Jan, [facility] [place] [facility] [address] [id number] [place] [address] Jan, [facility] [place] [facility] [address] [id number] [place] [address] Jan, [facility] [place] [facility] [address] [facility] [id number] [place] [address] Jan, [facility] [place] [facility] [address] [id number] [place] [address] Jan, [facility] [place] [facility] [address] [id number] [place] [address] Jan, [facility] [place] [facility] [address] [id number] [place] [address] Dec, [facility] [place] [facility] [address] [id number] [place] [address] Dec, [facility] [address] [id number], [place] [address] Dec, [facility] [facility] [address] [id number][place] [address] Dec, [facility] [address] [facility] [id number][place] [address] Dec, [facility] [address] [id number], [place] [address] Dec, [facility] [address] [id number][place] [address] Dec, [facility] [facility] [address] [id number], [place] [address] Dec, [facility] [address] [facility] [id number], [place] [address] Dec, [facility] [address] [facility] [id number][place] [address] Dec, [facility] [place] [address] [id number] [place] [address] 18 Nov, 2011 [facility] [address] [id number] [place] [address] 13 Nov, 2011 [facility] [place] [facility] [address] [id number] [place] [address] 24 Oct, 2011 [facility] [place] [facility] [address] [id number] [place] [address] 89[address] Oct, [facility] [place] [facility] [address] [id number] [place] [address] 17 Oct, 2011 [facility] [place] [facility] [address] [id number] [place] [address] 8215 16 Oct, 2011 [facility] [facility] [address] [id number] [place] [address] 15 Oct, 2011 [facility] [address] [id number] [place] [address] Oct, [facility] [address] [id number] [place] [address] 8470 Oct, [facility] [address] [id number] [place] [address] Sep, [facility] [address] [id number] [place] [address] Aug, [facility] [place] [facility] [address] [id number] [place] [address] Aug, [facility] [place] [facility] [address] [id number] [place] [address] 4165 Aug, [facility] [address] [id number] [place] [address]114 Aug, [facility] [address] [id number] [place] [id number] [address] Aug, [facility] [address] [id number] [place] [address] July, [facility] [place] [facility] [address] [id number] [place] [address] July, [facility] [place] [facility] [address] [id number] [place] [address] 4069 July, [facility] [address] [id number] [place] [address] Jun, [facility] [address] [id number] [place] [address] Jun, [facility] [address] [id number] [place] [address]294 Jun, [facility] [address] [id number] [place] [address] Jun, [facility] [address] [id number] [place] [address] 30 May, 2011 [facility] [address] [id number] [place] [address] 9929 30 May, 2011 [facility] [address] [id number] [place] [address]60 29 May, 2011 [facility] [address] [id number] [place] [address] 78[address] May, [facility] [address] [id number] [place] [address] 1367 May, [facility] [address] [id number] [place] [address] 7566 May, [facility] [address] [id number] [place] [address]- 6679 May, [facility] [address] [id number] [place] [address] 5[address] May, [facility] [address] [id number] [place] [address]- [address]29 08 May, 2011 [facility] [address] [id number] [place] [address] 5071 May, [facility] [address] [id number] [place] [address] 5256 May, [facility] [address] [id number] [place] [address] 1306 May, [facility] [address] [id number] [place] [address]- 5686 Mar, [facility] [address] [id number] [place] [address] 56[address] Mar, [facility] [address] [id number] [place] [address] 4813 Feb, [facility] [address] [id number] [place] [address] 3590 Feb, [facility] [address] [id number] [place] [address]- 6261 Feb, [facility] [address] [id number] [place] [address]- 1031 15 Feb, 2011 [facility] [address] [id number] [place] [address]- 2064 Feb, [facility] [address] [id number] [place] [address]- 4261 Feb, [facility] [address] [id number] [place] [address] Feb, [facility] [address] [id number] [place] [address]- 8710 28 Jan, 2011 [facility] [address] [id number] [place] [address] 3672 Jan, [facility] [address] [id number] [place] [address]- 9440 22 Jan, 2011 [facility] [address] [id number] [place] [address]- 1685 17 Jan, 2011 [facility] [address] [id number] [place] [address] 1932 07 Jan, 2011 [facility] [address] [id number] [place] [address]- 7262 Jan, [facility] [address] [id number] [place] [address] 8390 Dec, [facility] [address] [id number] [place] [address] 2396 Dec, [facility] [address] [id number] [place] [address]- 6472 Dec, [facility] [address] [id number] [place] [address]- 8731 July, [facility] [address] [id number] [place] [address] 5236 July, [facility] [address] [id number] [place] [address] 9223 Feb, [facility] [address] [id number] [place] [address]- 5431 Jan, [facility] [address] [id number] [place] [address]- 7175 Dec, [facility] [address] [id number] [place] [address]- 6362 Dec, [facility] [address] [id number] [place] [address]- 0638 Sep, [facility] [address] [id number] [place] [address]- 8773 Aug, [facility] [address] [id number] [place] [address]- 3656 Jun, [facility] [address] [id number] [place] [address]- 2662 Jun, [facility] [address] [id number] [place] [address]- 4900 Jan, [facility] [address] [address] Jan, [facility] [id number], [place] [address] 5966 Jan, [facility] [address], [place] [address] 3967 Jan, [facility] [id number], [place] [address]- 4699 Dec, [facility] [id number], [place] [address] 8208 Dec, [facility] [id number] [place] [address]- [address] Dec, [facility] [id number], [place] [address] 2848 Nov, [facility] [id number] [place] [address]- 6457 July, [facility] [address], [place] [address] 8546 May, [facility] [address], [place] [address] 4023 Apr, [facility] [address], [place] [address]- 5031 Feb, [facility] [id number], [place] [address] 1314 Dec, IMMUNIZATIONS No Known Immunizations SOCIAL HISTORY Never Assessed REASON FOR VISIT Repository Medication PLAN OF CARE VITAL SIGNS MEDICATIONS Medication Instructions Dosage Frequency Start Date End Date Duration Status Simvastatin 80 MG Orally Once a day 1 tablet in the evening 24h Sep, 90 days Active RESULTS No Results PROCEDURES [...]
--- NOTE | 2018-06-14 15:08 | ED General ---
General Chief Complaint: Cough/Cold/Flu Symptoms Stated Complaint: COUGH CONGESTED EAR PAIN Nursing Triage Note: AMB TO ROOM C/O COUGH CONGESTION SINCE SAT. Nursing Sepsis Screen: No Definite Risk Source of Information: Patient Exam Limitations: No Limitations History of Present Illness Date Seen by Provider: Jun 14, 2018 Time Seen by Provider: 15:07 Initial Comments To ER with a one-week history of bilateral ear pressure, nonproductive cough, absence of fevers, rhinorrhea Timing/Duration: 1 Week Severity: Moderate Associated Systoms: Cough Allergies and Home Medications Allergies Coded Allergies: azithromycin (Unverified Allergy, Unknown, 10/28/13) CHEST PAIN prednisone (Unverified Adverse Reaction, Unknown, RAISES BLOOD SUGAR, ) Home Medications Acetaminophen with Codeine 1 Each Tablet, 1 EACH PO Q4H PRN for COUGH Prescribed by: SOCO JOAQUIN on 06/14/18 1513 Aspirin 81 Mg Tabec, 81 MG PO DAILY, (Reported) Cefuroxime Axetil 250 Mg Tablet, 250 MG PO BID Prescribed by: SOCO JOAQUIN on 03/21/18 1215 Citalopram Hydrobromide 20 Mg Tablet, 1 EACH PO BID, (Reported) Hum Insulin Nph/Reg Insulin Hm 10 Ml Vial, 110 UNITS SQ BID, (Reported) Lamotrigine 150 Mg Tablet, 150 MG PO DAILY, (Reported) Lidocaine HCl 15 Ml Solution, 15 ML MM Q 1-2 HOURS Prescribed by: MAR MANE on 09/01/171836 Liraglutide 0.6 Mg/0.1 Ml Pen.injctr, 1.8 MG SC HS, (Reported) Losartan Potassium 25 Mg Tablet, 1 EACH PO BID, (Reported) Metronidazole 500 Mg Tablet, 500 MG PO BID, (Reported) Naproxen 500 Mg Tablet, 500 MG PO BID Prescribed by: MAR MANE on 09/01/171836 Ondansetron 8 Mg Tab.rapdis, 8 MG PO Q6H PRN for NAUSEA/VOMITING-1ST LINE Prescribed by: ANGIE MAS on 06/11/17 1703 Ondansetron 4 Mg Tab.rapdis, 4 MG PO Q6H PRN for NAUSEA/VOMITING Prescribed by: MYAH OLIVAS on 10/02/17 1215 Ondansetron 4 Mg Tab.rapdis, 4 MG PO Q6H PRN for NAUSEA/VOMITING Prescribed by: KEYONNA RICO on 03/17/18 1149 Phenazopyridine HCl 100 Mg Tablet, 100 MG PO Q8H PRN for pain Prescribed by: ANGIE MAS on 06/11/17 1703 Pioglitazone Hcl 45 Mg Tablet, 45 MG PO DAILY, (Reported) Promethazine HCl 25 Mg Tablet, 25 MG PO Q6H PRN for NAUSEA/VOMITING Prescribed by: SOCO JOAQUIN on 03/21/18 1138 Pseudoephedrine HCl 120 Mg Tablet.er, 120 MG PO BID PRN for CONGESTION Prescribed by: SOCO JOAQUIN on 06/14/18 1513 Simvastatin 40 Mg Tablet, 2 TAB PO DAILY, (Reported) Triamcinolone Acet 15 Gm Cr, 15 GM TP BID Prescribed by: SOCO JOAQUIN on 06/14/17 2211 Patient Home Medication List Home Medication List Reviewed: Yes Review of Systems Review of Systems Constitutional: see HPI, weakness EENTM: see HPI Respiratory: no symptoms reported Cardiovascular: no symptoms reported Genitourinary: no symptoms reported Musculoskeletal: no symptoms reported Skin: no symptoms reported Psychiatric/Neurological: No Symptoms Reported Hematologic/Lymphatic: No Symptoms Reported Immunological/Allergic: no symptoms reported Past Ifmvpsa-Enoxci-Fwiprb Hx Patient Social History Alcohol Use: Denies Use Recreational Drug Use: No 2nd Hand Smoke Exposure: No Recent Foreign Travel: No Contact w/Someone Who Travel: No Recent Infectious Disease Expo: No Recent Hopitalizations: No Immunizations Up To Date Tetanus Booster (TDap): More than 5yrs PED Vaccines UTD: Yes Date of Pneumonia Vaccine: Mar 29, 2008 Date of Influenza Vaccine: Dec 28, 2016 Seasonal Allergies Seasonal Allergies: Yes Past Medical History Surgeries: Yes (LARRY CARPAL TUNNEL, HERNIA REPAIR, BACK SURGERY 2014; DENTAL EXTRACTIONS) Section, Orthopedic Respiratory: No Cardiac: Yes High Cholesterol Neurological: Yes Headaches /Migraines Reproductive Disorders: No Sexually Transmitted Disease: No HIV/AIDS: No Gastrointestinal: Yes Abdominal Hernia, Irritable Bowel Musculoskeletal: Yes Arthritis, Chronic Back Pain Endocrine: Yes (Type II, 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, Non-Insulin dep HEENT: Yes (DENTAL ISSUSES/EXTRACTIONS) Cancer: No Psychosocial: Yes Anxiety, Bipolar, Personality Disorder, Depression Integumentary: No Blood Disorders: No Adverse Reaction/Blood Tranf: No Family Medical History Alcoholism 19 FATHER Arthritis 19 MOTHER Cataracts 19 MOTHER Diabetes mellitus 19 FATHER 19 MOTHER FH: stroke 19 FATHER Hypercholesterolemia 19 MOTHER Hypertension 19 MOTHER No Family History of: Cardiovascular disease Glaucoma Osteoporosis Prostate cancer No Pertinent Family Hx Physical Exam Vital Signs Vital Signs - First Documented 06/14/18 14:29 Temp 95.9 Pulse 98 Resp 18 B/P (MAP) 143/67 (92) Pulse Ox 98 O2 Delivery Room Air Capillary Refill : Less Than 3 Seconds Height, Weight, BMI Height: 5'2.00" Weight: 179lbs. 0oz. 81.999214st; 36.6 BMI Method:Stated General Appearance: No Apparent Distress, WD/WN Eyes: Bilateral Eye Normal Inspection, Bilateral Eye PERRL, Bilateral Eye EOMI HEENT: PERRL/EOMI, TMs Normal Neck: Full Range of Motion, Normal Inspection Respiratory: No Accessory Muscle Use, No Respiratory Distress Cardiovascular: Regular Rate, Rhythm, Normal Peripheral Pulses Gastrointestinal: Non Tender, Soft Extremity: Normal Capillary Refill, Normal Inspection Neurologic/Psychiatric: Alert, Oriented x3, No Motor/Sensory Deficits Skin: Normal Color, Warm/Dry Progress/Results/Core Measures Suspected Sepsis Recent Fever Within 48 Hours: No Infection Criteria Present: None New/Unexplained Altered Menta: No Sepsis Screen: No Definite Risk SIRS Temperature:95.9 Pulse: 98 Respiratory Rate: 18 Blood Pressure 143 /67 Mean: 92 Results/Orders Vital Signs/I&O 06/14/18 06/14/18 14:29 15:19 Temp 95.9 95.9 Pulse 98 98 Resp 18 18 B/P (MAP) 143/67 (92) 143/67 (92) Pulse Ox 98 98 O2 Delivery Room Air Capillary Refill : Less Than 3 Seconds Blood Pressure Mean: 92 Departure Impression Primary Impression: Bronchitis Disposition: 01 HOME, SELF-CARE Condition: Stable Departure-Patient Inst. Decision time for Depature: 15:12 Referrals: [facility] (PCP) Primary Care Physician BEVERLY TAO (Family) Primary Care Physician Patient Instructions: Acute Bronchitis, Adult (DC) Add. Discharge Instructions: 1. Return to ER for any concerns 2. Follow-up with your doctor next week 3. All discharge instructions reviewed with patient and/or family. Voiced understanding. Scripts Acetaminophen with Codeine (Tylenol with Codeine #3 Tablet) 1 Each Tablet 1 EACH PO Q4H PRN for COUGH, #10 TAB Prov: SOCO JOAQUIN APRN 06/14/18 Pseudoephedrine HCl (Sudafed 12 Hour) 120 Mg Tablet.er 120 MG PO BID PRN for CONGESTION, #10 TAB Prov: SOCO JOAQUIN APRN 06/14/18 SOCO JOAQUIN APRN Jun 14, 2018 15:07
[2018-06-14] MEDS ORDERED: PSEU120T17 PO (15:13)
[2018-06-14] MEDS ORDERED: ACET-789 PO (15:13)
[2018-06-14 15:19] VITALS: BP 143/67
--- OUTSIDE RECORDS SUMMARY | 2018-06-14 15:29 | XMS REPORT | Continuity of Care Document ---
Author Author [facility] Address Unknown Phone Unavailable Allergies Active Description Code Type Severity Reaction Onset Reported/Identified Relationship to Patient Clinical Status Yes Zithromax Drug Allergy 05/08/2008 Yes Zithromax Drug Allergy N/A N/A 05/08/2008 Yes azithromycin [id number] Drug Allergy Unknown N/A 10/28/2013 Yes prednisone [id number] Drug Allergy Unknown RAISES BLOOD ESPINOZA 10/28/2013 [...] APRN A 250.02 DIABETES II UNCONTROLLED 10/03/2007 BEVERYL TAO APRN S 250.02 DIABETES II UNCONTROLLED [...] 250.00 DIABETES MELLITUS TYPE 2 12/22/2007 NELSON LOCK SETTER, JAVAD 250.00 DIABETES MELLITUS TYPE 2 12/22/2007 [...] 250.00 DIABETES MELLITUS TYPE 2 12/22/2007 ROXANNA LOCK SETTER, CATALINA A 250.00 DIABETES MELLITUS TYPE 2 [...] ANN L V72.31 Routine Gynecological Examination 01/24/2008 ARAIN US PSYD ANN L V72.31 Routine Gynecological [...] And Abscess Of Unspecified Sites 04/02/2008 AISLINN LOCK SETTER, BEVERLY S 682.9 Cellulitis And Abscess Of [...] And Abscess Of Unspecified Sites 04/02/2008 AISLINN LOCK SETTER, BEVERLY S 682.9 Cellulitis And Abscess Of Unspecified Sites 04/02/2008 ARIAN US PSYD ANN L 682.9 Cellulitis And Abscess Of Unspecified Sites 04/02/2008 ARIAN US PSYD ANN L 682.9 Cellulitis And Abscess Of Unspecified Sites 04/02/2008 CLAUDE TAO APRNNDA S 682.9 Cellulitis And Abscess Of Unspecified Sites 04/02/2008 ARIAN US PSYD ANN L 682.9 Cellulitis And Abscess Of Unspecified Sites 04/02/2008 NELSON LOCK SETTER, JAVAD 682.9 Cellulitis And Abscess Of Unspecified Sites 04/02/2008 CLAUDE TAO APRNNDA S 682.9 Cellulitis And Abscess Of Unspecified Sites 04/02/2008 NELSON LOCK SETTER, JAVAD 682.9 Cellulitis And Abscess Of Unspecified [...] And Abscess Of Unspecified Sites 04/02/2008 NELSON LOCK SETTER, JAVAD 682.9 Cellulitis And Abscess Of Unspecified [...] Respiratory Infections Of Unspecified Site 05/08/2008 AISLINN LOCK SETTER, BEVERLY S 465.9 Acute Upper Respiratory Infections [...] Respiratory Infections Of Unspecified Site 05/08/2008 AISLINN LOCK SETTER, BEVERLY S 465.9 Acute Upper Respiratory Infections Of Unspecified Site 05/08/2008 ARIAN US PSYD ANN L 465.9 Acute Upper Respiratory Infections Of Unspecified Site 05/08/2008 ARIAN US PSYD ANN L 465.9 Acute Upper Respiratory Infections Of Unspecified Site 05/08/2008 AISLINN LOCK SETTER, BEVERLY S 465.9 Acute Upper Respiratory Infections Of Unspecified Site 05/08/2008 ARIAN US PSYD ANN L 465.9 Acute Upper Respiratory Infections Of Unspecified Site 05/08/2008 NELSON LOCK SETTER, JAVAD 465.9 Acute Upper Respiratory Infections Of Unspecified Site 05/08/2008 AISLINN LOCK SETTER, BEVERLY S 465.9 Acute Upper Respiratory Infections Of Unspecified Site 05/08/2008 NELSON LOCK SETTER, JAVAD 465.9 Acute Upper Respiratory Infections Of Unspecified Site 05/08/2008 ARIAN US PSYD ANN L 465.9 Acute Upper Respiratory Infections Of Unspecified Site 05/08/2008 ARIAN US PSYD ANN L 465.9 Acute Upper Respiratory Infections Of Unspecified Site 05/08/2008 ARIAN US PSYD ANN L 465.9 Acute Upper Respiratory Infections Of Unspecified Site 05/08/2008 AISLINN LOCK SETTER, BEVERLY S 465.9 Acute Upper Respiratory Infections [...] Specified Infectious And Parasitic Diseases 05/30/2008 HARLEEN OLU APRN 136.8 Other Specified Infectious And Parasitic [...] Specified Infectious And Parasitic Diseases 05/30/2008 AISLINN LOCK SETTER, BEVERLY S 136.8 Other Specified Infectious And [...] Specified Infectious And Parasitic Diseases 05/30/2008 NELSON LOCK SETTER, JAVAD 136.8 Other Specified Infectious And Parasitic [...] Specified Infectious And Parasitic Diseases 05/30/2008 NELSON LOCK SETTER, JAVAD 136.8 Other Specified Infectious And Parasitic [...] APRN T 729.5 Pain In Limb 06/06/2008 AIRAN US PSYD ANN L 729.5 Pain In [...] L 729.5 Pain In Limb 06/06/2008 NELSON LOCK SETTER, JAVAD 729.5 Pain In Limb 06/06/2008 AISLINNCHICHI OCONNOR, BEVERLY S 729.5 Pain In Limb 06/06/2008 NELSON LOCK SETTER, JAVAD 729.5 Pain In Limb 06/06/2008 ARIAN US PSYD ANN L 729.5 Pain In Limb 06/06/2008 ARIAN US PSYD ANN L 729.5 Pain In Limb 06/06/2008 ARIAN US PSYD ANN L 729.5 Pain In Limb 06/06/2008 AISLINN OCONNOR BEVERLY S 729.5 Pain In Limb 06/06/2008 ROXANNAKassi OCONNOR CATALINA A 729.5 Pain In Limb 06/06/2008 NELSON LOCK SETTER, JAVAD 729.5 Pain In Limb 06/06/2008 ARIAN US PSYD ANN L 729.5 Pain In Limb 06/06/2008 ARIAN US PSYD ANN L 729.5 Pain In Limb 06/06/2008 AISLINN OCONNOR BEVERLY S 729.5 Pain In Limb 06/06/2008 ARIAN SU [...] T 794.17 Abnormal Electromyogram (emg) 07/02/2008 DASHA LOCK SETTER HARLEEN T 794.17 Abnormal Electromyogram (emg) 07/02/2008 [...] L 794.17 Abnormal Electromyogram (emg) 07/02/2008 AISLINN LOCK SETTER, BEVERLY S 794.17 Abnormal Electromyogram (emg) 07/02/2008 MCCLEEARY PSYD, DAISHA L 794.17 Abnormal Electromyogram (emg) 07/02/2008 NELSON LOCK SETTER, JAVAD 794.17 Abnormal Electromyogram (emg) 07/02/2008 AISLINN LOCK SETTER, BEVERLY S 794.17 Abnormal Electromyogram (emg) 07/02/2008 NELSON LOCK SETTER, JAVAD 794.17 Abnormal Electromyogram (emg) 07/02/2008 MCCLEEARY PSYD, DAISHA L 794.17 Abnormal Electromyogram (emg) 07/02/2008 MCCLEEARY PSYD, DAISHA L 794.17 Abnormal Electromyogram (emg) 07/02/2008 MCCLEEARY PSYD, DAISHA L 794.17 Abnormal Electromyogram (emg) 07/02/2008 AISLINN LOCK SETTER, BEVERLY S 794.17 Abnormal Electromyogram (emg) 07/02/2008 ROXANNA LOCK SETTER, CATALINA A 794.17 Abnormal Electromyogram (emg) 07/02/2008 NELSON LOCK SETTER, JAVAD 794.17 Abnormal Electromyogram (emg) 07/02/2008 MCCLEEARY PSYD, DAISHA L 794.17 Abnormal Electromyogram (emg) 07/02/2008 MCCLEEARY PSYD, DAISHA L 794.17 Abnormal Electromyogram (emg) 07/02/2008 AISLINN LOCK SETTER, BEVERLY S 794.17 Abnormal Electromyogram (emg) 07/02/2008 MCCLEEARY PSYD, DAISHA L 794.17 Abnormal Electromyogram (emg) 07/02/2008 MCCLEEARY PSYD, DAISHA L 794.17 Abnormal Electromyogram (emg) 07/02/2008 ROXANNA LOCK SETTER, CATALINA A 794.17 Abnormal Electromyogram (emg) 07/02/2008 [...] Headache 01/30/2009 784.0 Headache 01/30/2009 MCCLIBBY GARZA, DAISAH L 784.0 Headache 01/30/2009 MCCSINAEARDarrell PSYD, DAISHA [...] PSYD, DAISHA L 784.0 Headache 01/30/2009 AISLINN LOCK SETTER, BEVERLY S 784.0 Headache 01/30/2009 MCCLEEARY PSYD, DAISHA L 784.0 Headache 01/30/2009 LUCIANO WILLARD DO K 784.0 Headache 01/30/2009 LOUISE COBOS MD 784.0 Headache 01/30/2009 MCCLEEARY PSYD, DAISHA L 784.0 Headache 01/30/2009 AISLINN LOCK SETTER, BEVERLY S 784.0 Headache 01/30/2009 MCCLEEARY PSYD, DAISHA L 784.0 Headache 01/30/2009 MCCLEEARY PSYD, DAISHA L 784.0 Headache 01/30/2009 AISLINN LOCK SETTER, BEVERLY S 784.0 Headache 01/30/2009 MCCLEEARY PSYD, DAISHA L 784.0 Headache 01/30/2009 NELSON LOCK SETTER, JAVAD 784.0 Headache 01/30/2009 AISLINN LOCK SETTER, BEVERLY S 784.0 Headache 01/30/2009 NELSON LOCK SETTER, JAVAD 784.0 Headache 01/30/2009 MCCLEEARY PSYD, DAISHA L 784.0 Headache 01/30/2009 MCCLEEARY PSYD, DAISHA L 784.0 Headache 01/30/2009 MCCLEEARY PSYD, DAISHA L 784.0 Headache 01/30/2009 AISLINN LOCK SETTER, BEVERLY S 784.0 Headache 01/30/2009 ROXANNA LOCK SETTER, CATALINA A 784.0 Headache 01/30/2009 NELSON LOCK SETTER, JAVAD 784.0 Headache 01/30/2009 MCCLEEARY PSYD, DAISHA L 784.0 Headache 01/30/2009 MCCLEEARY PSYD, DAISHA L 784.0 Headache 01/30/2009 AISLINN LOCK SETTER, BEVERLY S 784.0 Headache 01/30/2009 MCCLIBBY GARZA, [...] In Joint, Ankle And Foot 07/08/2009 JERMAINE FERERR APRN 611.71 Breast Pain 07/08/2009 JERMAINE FERRER [...] In Joint, Ankle And Foot 07/08/2009 AISLINN LOCK SETTER, BEVERLY S 611.71 Breast Pain 07/08/2009 AISLINN LOCK SETTER, BEVERLY S 719.47 Pain In Joint, Ankle And Foot 07/08/2009 ARIAN US PSYD L 611.71 Breast Pain 07/08/2009 ARIAN US PSYD ANN L 719.47 Pain In Joint, Ankle And Foot 07/08/2009 NELSON LOCK SETTER, JAVAD 611.71 Breast Pain 07/08/2009 NELSON LOCK SETTER, JAVAD 719.47 Pain In Joint, Ankle And Foot 07/08/2009 AISLINN APRN, BEVERLY S 611.71 Breast Pain 07/08/2009 AISLINN LOCK SETTER, BEVERLY S 719.47 Pain In Joint, Ankle And Foot 07/08/2009 NELSON LOCK SETTER, JAVAD 611.71 Breast Pain 07/08/2009 NELSON LOCK SETTER, JAVAD 719.47 Pain In Joint, Ankle And [...] BEVERLY S 611.71 Breast Pain 07/08/2009 AISLINN LOCK SETTER, BEVERLY S 719.47 Pain In Joint, Ankle And Foot 07/08/2009 ROXANNA LOCK SETTER, CATALINA A 611.71 Breast Pain 07/08/2009 ROXANNA LOCK SETTER, CATALINA A 719.47 Pain In Joint, Ankle And Foot 07/08/2009 NELSON LOCK SETTER, JAVAD 611.71 Breast Pain 07/08/2009 NELSON LOCK SETTER, JAVAD 719.47 Pain In Joint, Ankle And [...] Of Skin And Subcutaneous Tissue 07/16/2009 NELSON LOCK SETTER, JAVAD 686.9 Unspecified Local Infection Of Skin And Subcutaneous Tissue 07/16/2009 LATONYA TAO APRNA S 686.9 Unspecified Local Infection Of Skin And Subcutaneous Tissue 07/16/2009 NELSON LOCK SETTER JAVAD 686.9 Unspecified Local Infection Of Skin [...] Of Skin And Subcutaneous Tissue 07/16/2009 NELSON LOCK SETTER, JAVAD 686.9 Unspecified Local Infection Of Skin [...] DAISHA L 847.0 Sprain/strain Neck 09/30/2009 AISLINN LOCK SETTER, BEVERLY S 847.0 Sprain/strain Neck 09/30/2009 ABEBA GARZA, DAISHA L 847.0 Sprain/strain Neck 09/30/2009 ABEBA GARZA, DAISHA L 847.0 Sprain/strain Neck 09/30/2009 AISLINN LOCK SETTER, BEVERLY S 847.0 Sprain/strain Neck 09/30/2009 ARIAN US PSYD ANN L 847.0 Sprain/strain Neck 09/30/2009 NELSON LOCK SETTER, JAVAD 847.0 Sprain/strain Neck 09/30/2009 AISLINN OCONNOR, BEVERLY S 847.0 Sprain/strain Neck 09/30/2009 ENLSON LOCK SETTER, JAVAD 847.0 Sprain/strain Neck 09/30/2009 ABEBA GARZA, DAISHA L 847.0 Sprain/strain Neck 09/30/2009 ABEBA GARZA, DAISHA L 847.0 Sprain/strain Neck 09/30/2009 ARIAN US PSYD ANN L 847.0 Sprain/strain Neck 09/30/2009 AISLINN OCONNOR BEVERLY S 847.0 Sprain/strain Neck 09/30/2009 CATALINA MCKNIGHT APRN A 847.0 Sprain/strain Neck 09/30/2009 NELSON LOCK SETTER, JAVAD 847.0 Sprain/strain Neck 09/30/2009 ABEBA GARZA, [...] Reading Without Diagnosis Of Hypertension 01/07/2010 NELSON LOCK SETTER, JAVAD 796.2 Elevated Blood Pressure Reading Without Diagnosis Of Hypertension 01/07/2010 AISLINN OCONNOR BEVERLY S 796.2 Elevated Blood Pressure Reading Without Diagnosis Of Hypertension 01/07/2010 NELSON LOCK SETTER, JAVAD 796.2 Elevated Blood Pressure Reading Without [...] Reading Without Diagnosis Of Hypertension 01/07/2010 NELSON LOCK SETTER, JAVAD 796.2 Elevated Blood Pressure Reading Without [...] L 296.89 MO BIPOLAR II 10/16/2010 LUCIANO WILLRAD DO 296.89 MO BIPOLAR II 10/16/2010 JERMAINE [...] L 296.89 MO BIPOLAR II 10/16/2010 NELSON LOCK SETTER, JAVAD 296.89 MO BIPOLAR II 10/16/2010 CLAUDE [...] MO BIPOLAR I MIXED MODERATE 01/22/2011 NELSON LOCK SETTER, JAVAD 296.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 I MIXED MODERATE 01/22/2011 AISLINN OCONNOR, BEVERLY S 296.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 I MIXED MODERATE 01/22/2011 NELSON LOCK SETTER, JAVAD 296.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 I MIXED MODERATE 01/22/2011 ARIAN US PSYD ANN L 296.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 I MIXED MODERATE 01/22/2011 ARIAN US PSYD ANN L 296.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 I MIXED MODERATE 01/22/2011 ARIAN US PSYD ANN L 296.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 I MIXED MODERATE 01/22/2011 AISLINNCHICHI OCONNOR, BEVERLY S 296.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 I MIXED MODERATE 01/22/2011 ROXANNA LOCK SETTER, CATALINA A 296.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 I MIXED [...] 296.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 I MIXED MODERATE 01/22/2011 ARINA US PSYD ANN L 296.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 [...] S 354.0 Carpal Tunnel Syndrome 02/02/2011 AISLINN LOCK SETTER, BEVERLY S 535.00 Acute Gastritis (without Hemorrhage) 02/02/2011 JERMAINE FERRER APRN D 354.0 Carpal Tunnel Syndrome 02/02/2011 JERMAINE FERRER APRN D 535.00 Acute Gastritis (without Hemorrhage) 02/02/2011 ARIAN US PSYD L 354.0 Carpal Tunnel Syndrome 02/02/2011 ARIAN US PSYD ANN L 535.00 Acute Gastritis (without Hemorrhage) 02/02/2011 DASHA LOCK SETTER, HARLEEN T 354.0 Carpal Tunnel Syndrome 02/02/2011 DASHA LOCK SETTER, HARLEEN T 535.00 Acute Gastritis (without Hemorrhage) 02/02/2011 DASHA LOCK SETTER, HARLEEN T 354.0 Carpal Tunnel Syndrome 02/02/2011 DASHA LOCK SETTER, HARLEEN T 535.00 Acute Gastritis (without Hemorrhage) [...] 535.00 Acute Gastritis (without Hemorrhage) 02/02/2011 AISLINN LOCK SETTER, BEVERLY S 354.0 Carpal Tunnel Syndrome 02/02/2011 AISLINN LOCK SETTER, BEVERLY S 535.00 Acute Gastritis (without Hemorrhage) [...] 535.00 Acute Gastritis (without Hemorrhage) 02/02/2011 AISLINN LOCK SETTER, BEVERLY S 354.0 Carpal Tunnel Syndrome 02/02/2011 AISLINN LOCK SETTER, BEVERLY S 535.00 Acute Gastritis (without Hemorrhage) 02/02/2011 ARIAN US PSYD ANN L 354.0 Carpal Tunnel Syndrome 02/02/2011 ARIAN US PSYD ANN L 535.00 Acute Gastritis (without Hemorrhage) 02/02/2011 ARIAN US PSYD ANN L 354.0 Carpal Tunnel Syndrome 02/02/2011 ARIAN US PSYD ANN L 535.00 Acute Gastritis (without Hemorrhage) 02/02/2011 AISLINN LOCK SETTER, BEVERLY S 354.0 Carpal Tunnel Syndrome 02/02/2011 AISLINN LOCK SETTER, BEVERLY S 535.00 Acute Gastritis (without Hemorrhage) 02/02/2011 ARIAN US PSYD ANN L 354.0 Carpal Tunnel Syndrome 02/02/2011 ARIAN US PSYD ANN L 535.00 Acute Gastritis (without Hemorrhage) 02/02/2011 NELSON LOCK SETTER, JAVAD 354.0 Carpal Tunnel Syndrome 02/02/2011 NELSON LOCK SETTER, JAVAD 535.00 Acute Gastritis (without Hemorrhage) 02/02/2011 AISLINN LOCK SETTER, BEVERLY S 354.0 Carpal Tunnel Syndrome 02/02/2011 AISLINN LOCK SETTER, BEVERLY S 535.00 Acute Gastritis (without Hemorrhage) 02/02/2011 NELSON LOCK SETTER, JAVAD 354.0 Carpal Tunnel Syndrome 02/02/2011 NELSON LOCK SETTER, JAVAD 535.00 Acute Gastritis (without Hemorrhage) 02/02/2011 [...] 535.00 Acute Gastritis (without Hemorrhage) 02/02/2011 AISLINN LOCK SETTER, BEVERLY S 354.0 Carpal Tunnel Syndrome 02/02/2011 AISLINN LOCK SETTER, BEVERLY S 535.00 Acute Gastritis (without Hemorrhage) 02/02/2011 ROXANNA LOCK SETTER, CATALINA A 354.0 Carpal Tunnel Syndrome 02/02/2011 ROXANNA LOCK SETTER, CATALINA A 535.00 Acute Gastritis (without Hemorrhage) 02/02/2011 NELSON LOCK SETTER, JAVAD 354.0 Carpal Tunnel Syndrome 02/02/2011 NELSON LOCK SETTER, JAVAD 535.00 Acute Gastritis (without Hemorrhage) 02/02/2011 [...] 535.00 Acute Gastritis (without Hemorrhage) 02/02/2011 ROXANNA LOCK SETTER, CATALINA A 354.0 Carpal Tunnel Syndrome 02/02/2011 ROXANNA LOCK SETTER, CATALINA A 535.00 Acute Gastritis (without Hemorrhage) [...] 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 02/12/2011 NELSON LOCK SETTER, JAVAD 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 02/12/2011 [...] (3 YRS AND ABOVE, IM) 02/17/2011 CATALINA MCKNGIHT APRN V04.81 FLU DX (3 YRS AND [...] DX (3 YRS AND ABOVE, IM) 02/17/2011 LUOISE COBOS MD V04.81 FLU DX (3 YRS [...] 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.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 LEFT RING FINGER 03/10/2011 ARIAN SU PSYD 681.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 LEFT RING FINGER 03/10/2011 [...] 681.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 LEFT RING FINGER 03/10/2011 ROXANNACARLOS EDUADRO OCONNOR CATALINA A 681.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 LEFT RING [...] APRN 787.01 NAUSEA WITH VOMITING 06/01/2011 ROXANNA LOCK SETTER, CATALINA A 789.07 ABDOMINAL PAIN GENERALIZED 06/01/2011 [...] APRN 787.01 NAUSEA WITH VOMITING 06/01/2011 NELSON LOCK SETTER, JAVAD 789.07 ABDOMINAL PAIN GENERALIZED 06/01/2011 AISLINN LOCK SETTER, BEVERLY S 787.01 NAUSEA WITH VOMITING 06/01/2011 AISLINN LOCK SETTER, BEVERLY S 789.07 ABDOMINAL PAIN GENERALIZED 06/01/2011 NELSON LOCK SETTER, JAVAD 787.01 NAUSEA WITH VOMITING 06/01/2011 NELSON LOCK SETTER, JAVAD 789.07 ABDOMINAL PAIN GENERALIZED 06/01/2011 ARIAN [...] S 787.01 NAUSEA WITH VOMITING 06/01/2011 AISLINN LOCK SETTER, BEVERLY S 789.07 ABDOMINAL PAIN GENERALIZED 06/01/2011 ROXANNAKassi OCONNOR CATALINA A 787.01 NAUSEA WITH VOMITING 06/01/2011 ROXANNA LOCK SETTER, CATALINA A 789.07 ABDOMINAL PAIN GENERALIZED 06/01/2011 NELSON LOCK SETTER, JAVAD 787.01 NAUSEA WITH VOMITING 06/01/2011 NELSON LOCK SETTER, JAVAD 789.07 ABDOMINAL PAIN GENERALIZED 06/01/2011 ARIAN [...] L 789.07 ABDOMINAL PAIN GENERALIZED 06/01/2011 ROXANNA LOCK SETTER, CATALINA A 787.01 NAUSEA WITH VOMITING 06/01/2011 ROXANNA LOCK SETTER, CATALINA A 789.07 ABDOMINAL PAIN GENERALIZED 06/01/2011 [...] PSYD ANN L 787.91 DIARRHEA 06/17/2011 NELSON LOCK SETTER, JAVAD 787.91 DIARRHEA 06/17/2011 AISLINN OCONNOR BEVERLY S 787.91 DIARRHEA 06/17/2011 NELSON LOCK SETTER, JAVAD 787.91 DIARRHEA 06/17/2011 ARIAN US PSYD ANN L 787.91 DIARRHEA 06/17/2011 ARIAN US PSYD ANN L 787.91 DIARRHEA 06/17/2011 ARIAN US PSYD ANN L 787.91 DIARRHEA 06/17/2011 AISLINN OCONNOR BEVERLY S 787.91 DIARRHEA 06/17/2011 ROXANNA OCONNOR, CATALINA A 787.91 DIARRHEA 06/17/2011 NELSON LOCK SETTER, JAVAD 787.91 DIARRHEA 06/17/2011 ARIAN US PSYD [...] US PSYD ANN L 787.1 HEARTBURN 09/07/2011 AISLNIN OCONNOR BEVERLY S 787.1 HEARTBURN 09/07/2011 CATALINA MKCNIGHT APRN 787.1 HEARTBURN 09/07/2011 NELSON LOCK SETTER, JAVAD 787.1 HEARTBURN 09/07/2011 ARIAN US PSYD [...] MO BIPOLAR I MIXED UNSPECIFIED 01/01/2012 NELSON LOCK SETTER, JAVAD 296.60 MO BIPOLAR I MIXED UNSPECIFIED [...] MO BIPOLAR I MIXED UNSPECIFIED 01/01/2012 ROXANNA LOCK SETTER, CATALINA A 296.60 MO BIPOLAR I MIXED [...] PSYD ANN L 356.9 NEUROPATHY 01/07/2012 ARIAN SU PSYD ANN L 593.9 RENAL INSUFFICIENCY 01/07/2012 [...] ANN L 593.9 RENAL INSUFFICIENCY 01/07/2012 NELSON LOCK SETTER, JAVAD 356.9 NEUROPATHY 01/07/2012 NELSON LOCK SETTER, JAVAD 593.9 RENAL INSUFFICIENCY 01/07/2012 AISLINN OCONNOR, BEVERLY S 356.9 NEUROPATHY 01/07/2012 AISLINNCHICHI RUIZN, BEVERLY S 593.9 RENAL INSUFFICIENCY 01/07/2012 NELSON LOCK SETTER, JAVAD 356.9 NEUROPATHY 01/07/2012 NELSON LOCK SETTER, JAVAD 593.9 RENAL INSUFFICIENCY 01/07/2012 ARIAN US [...] OF UNSPECIFIED SITE OF BACK 01/29/2012 AISLINN LOCK SETTER, BEVERLY S 720.2 SACROILIITIS NOT ELSEWHERE CLASSIFIED 01/29/2012 AISLINN LOCK SETTER, BEVERLY S 724.3 SCIATICA 01/29/2012 AISLINN LOCK SETTER, BEVERLY S 847.9 SPRAIN OF UNSPECIFIED SITE [...] 720.2 SACROILIITIS NOT ELSEWHERE CLASSIFIED 01/29/2012 ROXANNA LOCK SETTER, CATALINA A 724.3 SCIATICA 01/29/2012 ROXANNA LOCK SETTER, CATALINA A 847.9 SPRAIN OF UNSPECIFIED SITE OF BACK 01/29/2012 AISLINN LOCK SETTER, BEVERLY S 720.2 SACROILIITIS NOT ELSEWHERE CLASSIFIED 01/29/2012 AISLINN LOCK SETTER, BEVERLY S 724.3 SCIATICA 01/29/2012 AISLINN OCONNOR [...] AISLINN OCONNOR, BEVERLY S 724.3 SCIATICA 01/29/2012 AISLINNCHIHCI OCONNOR, BEVERLY S 847.9 SPRAIN OF UNSPECIFIED [...] SPRAIN OF UNSPECIFIED SITE OF BACK 01/29/2012 ABBEA GARZA DAISHA L 720.2 SACROILIITIS NOT ELSEWHERE [...] OF UNSPECIFIED SITE OF BACK 01/29/2012 NELSON LOCK SETTER, JAVAD 720.2 SACROILIITIS NOT ELSEWHERE CLASSIFIED 01/29/2012 NELSON LOCK SETTER, JAVAD 724.3 SCIATICA 01/29/2012 NELSON LOCK SETTER JAVAD 847.9 SPRAIN OF UNSPECIFIED SITE OF BACK 01/29/2012 AISLINN LOCK SETTER, BEVERLY S 720.2 SACROILIITIS NOT ELSEWHERE CLASSIFIED 01/29/2012 AISLINN LOCK SETTER, BEVERLY S 724.3 SCIATICA 01/29/2012 AISLINN LOCK SETTER, BEVERLY S 847.9 SPRAIN OF UNSPECIFIED SITE OF BACK 01/29/2012 NELSON LOCK SETTER, JAVAD 720.2 SACROILIITIS NOT ELSEWHERE CLASSIFIED 01/29/2012 NELSON OCONNOR JAVAD 724.3 SCIATICA 01/29/2012 NELSON LOCK SETTER, JAVAD 847.9 SPRAIN OF UNSPECIFIED SITE OF [...] OF UNSPECIFIED SITE OF BACK 01/29/2012 AISLINN LOCK SETTER, BEVERLY S 720.2 SACROILIITIS NOT ELSEWHERE CLASSIFIED 01/29/2012 AISLINN LOCK SETTER, BEVERLY S 724.3 SCIATICA 01/29/2012 AISLINN LOCK SETTER, BEVERLY S 847.9 SPRAIN OF UNSPECIFIED SITE OF BACK 01/29/2012 ROXANNA LOCK SETTER, CATALINA A 720.2 SACROILIITIS NOT ELSEWHERE CLASSIFIED 01/29/2012 ROXANNA LOCK SETTER, CATALINA A 724.3 SCIATICA 01/29/2012 ROXANNA LOCK SETTER, CATALINA A 847.9 SPRAIN OF UNSPECIFIED SITE OF BACK 01/29/2012 NELSON LOCK SETTER JAVAD 720.2 SACROILIITIS NOT ELSEWHERE CLASSIFIED 01/29/2012 NELSON LOCK SETTER, JAVAD 724.3 SCIATICA 01/29/2012 NELSON LOCK SETTER, JAVAD 847.9 SPRAIN OF UNSPECIFIED SITE OF [...] OF UNSPECIFIED SITE OF BACK 01/29/2012 AISLINN LOCK SETTER, BEVERLY S 720.2 SACROILIITIS NOT ELSEWHERE CLASSIFIED 01/29/2012 AISLINN LOCK SETTER, BEVERLY S 724.3 SCIATICA 01/29/2012 AISLINN LOCK SETTER, BEVERLY S 847.9 SPRAIN OF UNSPECIFIED SITE [...] DO, LUCIANO K 791.0 PROTEINURIA 08/25/2012 GARTON LOCK SETTEREJRMAINE Solitario D 791.0 PROTEINURIA 08/25/2012 ARIAN US PSYD L 791.0 PROTEINURIA 08/25/2012 ROXANNA LOCK SETTER, CATALINA A 791.0 PROTEINURIA 08/25/2012 AISLINN LOCK SETTER, BEVERLY S 791.0 PROTEINURIA 08/25/2012 GARSOURAV LOCK SETTERJERMAINE Solitario 791.0 PROTEINURIA 08/25/2012 ARIAN US PSYD L 791.0 PROTEINURIA 08/25/2012 DASHA LOCK SETTER, HARLEEN T 791.0 PROTEINURIA 08/25/2012 DASHA LOCK SETTER, HARLEEN T 791.0 PROTEINURIA 08/25/2012 ARIAN US PSYD ANN L 791.0 PROTEINURIA 08/25/2012 ARIAN US PSYD L 791.0 PROTEINURIA 08/25/2012 LOUISE COBOS MD 791.0 PROTEINURIA 08/25/2012 JERMAINE FERRER APRN 791.0 PROTEINURIA 08/25/2012 ARIAN US PSYD L 791.0 PROTEINURIA 08/25/2012 ARIAN US PSYD L 791.0 PROTEINURIA 08/25/2012 ARIAN US PSYD ANN L 791.0 PROTEINURIA 08/25/2012 AISLINN LOCK SETTER, BEVERLY S 791.0 PROTEINURIA 08/25/2012 ARIAN US PSYD ANN L 791.0 PROTEINURIA 08/25/2012 WILLARD DO, LUCIANO K 791.0 PROTEINURIA 08/25/2012 HUERTER MD, LOUISE 791.0 PROTEINURIA 08/25/2012 ARIAN US PSYD ANN L 791.0 PROTEINURIA 08/25/2012 AISLINN LOCK SETTER, BEVERLY S 791.0 PROTEINURIA 08/25/2012 ARIAN US PSYD ANN L 791.0 PROTEINURIA 08/25/2012 ARIAN US PSYD ANN L 791.0 PROTEINURIA 08/25/2012 AISLINN LOCK SETTER, BEVERLY S 791.0 PROTEINURIA 08/25/2012 ARIAN US PSYD ANN L 791.0 PROTEINURIA 08/25/2012 NELSON LOCK SETTER, JAVAD 791.0 PROTEINURIA 08/25/2012 AISLINN LOCK SETTER, BEVERLY S 791.0 PROTEINURIA 08/25/2012 NELSON LOCK SETTER, JAVAD 791.0 PROTEINURIA 08/25/2012 ARIAN US PSYD ANN L 791.0 PROTEINURIA 08/25/2012 ARINA US PSYD ANN L 791.0 PROTEINURIA 08/25/2012 ARIAN US PSYD ANN L 791.0 PROTEINURIA 08/25/2012 AISLINN LOCK SETTER, BEVERLY S 791.0 PROTEINURIA 08/25/2012 ROXANNA LOCK SETTER, CATALINA A 791.0 PROTEINURIA 08/25/2012 NELSON LOCK SETTER, JAVAD 791.0 PROTEINURIA 08/25/2012 ARIAN US PSYD ANN L 791.0 PROTEINURIA 08/25/2012 ARIAN US PSYD ANN L 791.0 PROTEINURIA 08/25/2012 AISLINN LOCK SETTER, BEVERLY S 791.0 PROTEINURIA 08/25/2012 ARIAN US PSYD ANN L 791.0 PROTEINURIA 08/25/2012 ARIAN US PSYD ANN L 791.0 PROTEINURIA 08/25/2012 ROXANNA LOCK SETTER, CATALINA A 791.0 PROTEINURIA 08/25/2012 ARIAN US [...] OCONNOR BEVERLY S 278.00 OBESITY 10/10/2012 AISLINN LOCK SETTER, BEVERLY S V73.81 HPV SCREENING 10/10/2012 AISLINN OCONNOR BEVERLY S V76.10 BREAST CANCER SCREENING 10/10/2012 AISLINN OCONNOR BEVERLY S V76.2 CERVICAL CANCER SCREENING (PAP SMEAR) 10/10/2012 ARIAN US PSYD L 278.00 OBESITY 10/10/2012 ARIAN US PSYD L V73.81 HPV SCREENING 10/10/2012 ARIAN US PSYD L V76.10 BREAST CANCER SCREENING 10/10/2012 ARIAN US PSYD ANN L V76.2 CERVICAL CANCER SCREENING (PAP SMEAR) 10/10/2012 NELSON LOCK SETTER, JAVAD 278.00 OBESITY 10/10/2012 NELSON LOCK SETTER, JAVAD V73.81 HPV SCREENING 10/10/2012 NELSON LOCK SETTER, JAVAD V76.10 BREAST CANCER SCREENING 10/10/2012 NELSON LOCK SETTER, JAVAD V76.2 CERVICAL CANCER SCREENING (PAP SMEAR) 10/10/2012 AISLINN LOCK SETTER, BEVERLY S 278.00 OBESITY 10/10/2012 AISLINN OCONNOR, BEVERLY S V73.81 HPV SCREENING 10/10/2012 AISLINN OCONNOR BEVERLY S V76.10 BREAST CANCER SCREENING 10/10/2012 AISLINN OCONNOR BEVERLY S V76.2 CERVICAL CANCER SCREENING (PAP SMEAR) 10/10/2012 NELSON LOCK SETTER, JAVAD 278.00 OBESITY 10/10/2012 NELSON LOCK SETTER, JAVAD V73.81 HPV SCREENING 10/10/2012 NELSON LOCK SETTER, JAVAD V76.10 BREAST CANCER SCREENING 10/10/2012 NELSON LOCK SETTER, JAVAD V76.2 CERVICAL CANCER SCREENING (PAP SMEAR) [...] CERVICAL CANCER SCREENING (PAP SMEAR) 10/10/2012 NELSON LOCK SETTER, JAVAD 278.00 OBESITY 10/10/2012 NELSON LOCK SETTER, JAVAD V73.81 HPV SCREENING 10/10/2012 NELSON LOCK SETTER, JAVAD V76.10 BREAST CANCER SCREENING 10/10/2012 NELSON LOCK SETTER, JAVAD V76.2 CERVICAL CANCER SCREENING (PAP SMEAR) [...] PSYD L V73.81 HPV SCREENING 10/10/2012 ARIAN SU PSYD L V76.10 BREAST CANCER SCREENING 10/10/2012 [...] CATALINA A 706.2 SEBACEOUS CYST 03/28/2013 NELSON LOCK SETTER, JAVAD 706.2 SEBACEOUS CYST 03/28/2013 ARIAN US [...] DAMON APRN V58.32 SUTURE REMOVAL 05/03/2013 AISLINN LOCK SETTER, BEVERLY S V58.32 SUTURE REMOVAL 05/03/2013 NELSON LOCK SETTER, JAVAD V58.32 SUTURE REMOVAL 05/03/2013 ARIAN US PSYD ANN L V58.32 SUTURE REMOVAL 05/03/2013 ARIAN US PSYD ANN L V58.32 SUTURE REMOVAL 05/03/2013 ABEBA GARZA, DAISHA L V58.32 SUTURE REMOVAL 05/03/2013 AISLINN LOCK SETTER, BEVERLY S V58.32 SUTURE REMOVAL 05/03/2013 ROXANNA LOCK SETTER, CATALINA A V58.32 SUTURE REMOVAL 05/03/2013 NELSON LOCK SETTER, JAVAD V58.32 SUTURE REMOVAL 05/03/2013 ARIAN US PSYD ANN L V58.32 SUTURE REMOVAL 05/03/2013 ARIAN US PSYD ANN L V58.32 SUTURE REMOVAL 05/03/2013 AISLINN LOCK SETTER, BEVERLY S V58.32 SUTURE REMOVAL 05/03/2013 ARIAN US PSYD ANN L V58.32 SUTURE REMOVAL 05/03/2013 ARIAN US PSYD ANN L V58.32 SUTURE REMOVAL 05/03/2013 ROXANNA LOCK SETTER, CATALINA A V58.32 SUTURE REMOVAL 05/03/2013 ARIAN [...] 06/05/2013 ARIAN US PSYD 784.0 HEADACHE 06/05/2013 ARINA US PSYD ANN L 789.07 ABDOMINAL PAIN [...] L 789.07 ABDOMINAL PAIN GENERALIZED 06/05/2013 AISLINN LOCK SETTER, BEVERLY S 250.00 DIABETES II CONTROLLED (UNCOMPLICATED) 06/05/2013 AISLINN LOCK SETTER, BEVERLY S 784.0 HEADACHE 06/05/2013 AISLINN LOCK SETTER, BEVERLY S 789.07 ABDOMINAL PAIN GENERALIZED 06/05/2013 [...] L 789.07 ABDOMINAL PAIN GENERALIZED 06/05/2013 AISLINN LOCK SETTER, BEVERLY S 250.00 DIABETES II CONTROLLED (UNCOMPLICATED) 06/05/2013 AISLINN LOCK SETTER, BEVERLY S 784.0 HEADACHE 06/05/2013 AISLINN LOCK SETTER, BEVERLY S 789.07 ABDOMINAL PAIN GENERALIZED 06/05/2013 [...] L 789.07 ABDOMINAL PAIN GENERALIZED 06/05/2013 AISLINN LOCK SETTER, BEVERLY S 250.00 DIABETES II CONTROLLED (UNCOMPLICATED) 06/05/2013 AISLINN LOCK SETTER, BEVERLY S 784.0 HEADACHE 06/05/2013 AISLINN LOCK SETTER, BEVERLY S 789.07 ABDOMINAL PAIN GENERALIZED 06/05/2013 ARIAN US PSYD ANN L 250.00 DIABETES II CONTROLLED (UNCOMPLICATED) 06/05/2013 ARIAN US PSYD ANN L 784.0 HEADACHE 06/05/2013 ARIAN US PSYD ANN L 789.07 ABDOMINAL PAIN GENERALIZED 06/05/2013 NELSON LOCK SETTER, JAVAD 250.00 DIABETES II CONTROLLED (UNCOMPLICATED) 06/05/2013 NELSON LOCK SETTER, JAVAD 784.0 HEADACHE 06/05/2013 NELSON LOCK SETTER, JAVAD 789.07 ABDOMINAL PAIN GENERALIZED 06/05/2013 AISLINN LOCK SETTER, BEVRELY S 250.00 DIABETES II CONTROLLED (UNCOMPLICATED) 06/05/2013 AISLINN LOCK SETTER, BEVERLY S 784.0 HEADACHE 06/05/2013 AISLINN LOCK SETTER, BEVERLY S 789.07 ABDOMINAL PAIN GENERALIZED 06/05/2013 NELSON LOCK SETTER, JAVAD 250.00 DIABETES II CONTROLLED (UNCOMPLICATED) 06/05/2013 NELSON LOCK SETTER, JAVAD 784.0 HEADACHE 06/05/2013 NELSON LOCK SETTER, JAVAD 789.07 ABDOMINAL PAIN GENERALIZED 06/05/2013 ARIAN [...] L 789.07 ABDOMINAL PAIN GENERALIZED 06/05/2013 AISLINN LOCK SETTER, BEVERLY S 250.00 DIABETES II CONTROLLED (UNCOMPLICATED) 06/05/2013 AISLINN LOCK SETTER, BEVERLY S 784.0 HEADACHE 06/05/2013 AISLINN LOCK SETTER, BEVERLY S 789.07 ABDOMINAL PAIN GENERALIZED 06/05/2013 ROXANNA LOCK SETTER, CATALINA A 250.00 DIABETES II CONTROLLED (UNCOMPLICATED) 06/05/2013 ROXANNA LOCK SETTER, CATALINA A 784.0 HEADACHE 06/05/2013 ROXANNA LOCK SETTER, CATALINA A 789.07 ABDOMINAL PAIN GENERALIZED 06/05/2013 NELSON LOCK SETTER, JAVAD 250.00 DIABETES II CONTROLLED (UNCOMPLICATED) 06/05/2013 NELSON LOCK SETTER, JAVAD 784.0 HEADACHE 06/05/2013 NELSON LOCK SETTER, JAVAD 789.07 ABDOMINAL PAIN GENERALIZED 06/05/2013 ARIAN [...] ANN L 454.8 VARICOSE VEINS 06/21/2013 AISLINN LOCK SETTER, BEVERLY S 454.8 VARICOSE VEINS 06/21/2013 ARIAN [...] ANN L 454.8 VARICOSE VEINS 06/21/2013 NELSON LOCK SETTER, JAVAD 454.8 VARICOSE VEINS 06/21/2013 AISLINN RUIZN, BEVERLY S 454.8 VARICOSE VEINS 06/21/2013 NELSON LOCK SETTER, JAVAD 454.8 VARICOSE VEINS 06/21/2013 ARIAN US PSYD ANN L 454.8 VARICOSE VEINS 06/21/2013 ARIAN US PSYD ANN L 454.8 VARICOSE VEINS 06/21/2013 ARIAN US PSYD ANN L 454.8 VARICOSE VEINS 06/21/2013 AISLINN RUIZN, BEVERLY S 454.8 VARICOSE VEINS 06/21/2013 JASMIN MCKNIGHT APRNIDI A 454.8 VARICOSE VEINS 06/21/2013 NELSON LOCK SETTER, JAVAD 454.8 VARICOSE VEINS 06/21/2013 ARIAN US PSYD ANN L 454.8 VARICOSE VEINS 06/21/2013 ARIAN US PSYD ANN L 454.8 VARICOSE VEINS 06/21/2013 AISLINN LOCK SETTER, BEVERLY S 454.8 VARICOSE VEINS 06/21/2013 ARIAN US PSYD ANN L 454.8 VARICOSE VEINS 06/21/2013 ARIAN US PSYD ANN L 454.8 VARICOSE VEINS 06/21/2013 CATALINA MCKINGHT APRN A 454.8 VARICOSE VEINS 06/21/2013 ARIAN US PSYD ANN L 454.8 VARICOSE VEINS 06/21/2013 ARIAN US PSYD ANN L 454.8 VARICOSE VEINS 06/21/2013 ARIAN US PSYD ANN L 454.8 VARICOSE VEINS 07/12/2013 SOCO JOAQUIN LOCK SETTER Ot 724.4 07/12/2013 SOCO JOAQUIN LOCK SETTER Ot 729.5 07/12/2013 SOCO JOAQUIN LOCK SETTER Ot 729.81 07/17/2013 AISLINN OCONNOR BEVERLY S [...] BEVERLY S 729.5 PAIN- LEG 07/17/2013 NELSON LOCK SETTER, JAVAD 729.5 PAIN- LEG 07/17/2013 ARIAN US PSYD ANN L 729.5 PAIN- LEG 07/17/2013 ARIAN US PSYD ANN L 729.5 PAIN- LEG 07/17/2013 ARIAN US PSYD ANN L 729.5 PAIN- LEG 07/17/2013 AISLINN OCONNOR BEVERLY S 729.5 PAIN- LEG 07/17/2013 ROXANNA LOCK SETTER, CATALINA A 729.5 PAIN- LEG 07/17/2013 NELSON LOCK SETTER, JAVAD 729.5 PAIN- LEG 07/17/2013 ABEBA GARZA, [...] DAISHA L 786.50 CHEST PAIN 09/11/2013 NELSON LOCK SETTER, JAVAD 786.50 CHEST PAIN 09/11/2013 AISLINN OCONNOR BEVERLY S 786.50 CHEST PAIN 09/11/2013 NELSON LOCK SETTER, JAVAD 786.50 CHEST PAIN 09/11/2013 ABEBA GARZA, [...] UNSPECIFIED SITE WITHOUT MYELOPATHY 10/28/2013 SOCO JOAQUIN LOCK SETTER Ot 724.4 10/28/2013 SOCO JOAQUIN LOCK SETTER Ot 729.5 11/30/2013 BEVERLY TAO APRN S 354.2 LESION OF ULNAR NERVE 11/30/2013 JAVAD DAMNO APRN 354.2 LESION OF ULNAR NERVE 11/30/2013 ARIAN US PSYD ANN L 354.2 LESION OF ULNAR NERVE 11/30/2013 ARIAN US PSYD ANN L 354.2 LESION OF ULNAR NERVE 11/30/2013 ARAIN US PSYD ANN L 354.2 LESION OF [...] L 354.2 LESION OF ULNAR NERVE 12/18/2013 EZHRA SINHA MD Ot 278.00 OBESITY, NOS 12/18/2013 [...] CATALINA A V04.81 FLU SHOT 02/12/2014 NELSON LOCK SETTER, JAVAD 626.4 IRREGULAR MENSTRUAL CYCLE 02/12/2014 NELSON LOCK SETTER, JAVAD V04.81 FLU SHOT 02/12/2014 ARIAN US [...] UNSPECIFIED 04/16/2014 Ot 611.71 04/16/2014 DERRELL MEAD FARM FACILITY MANAGER Ot 454.9 04/16/2014 DERRELL MEAD FARM FACILITY MANAGER Ot 729.5 04/16/2014 DERRELL MEAD FARM FACILITY MANAGER Ot 823.80 04/16/2014 DERRELL MEAD FARM FACILITY MANAGER Ot E928.9 04/16/2014 BEVERLY TAO FARM FACILITY MANAGER Ot 719.45 04/16/2014 BEVERLY TAO FARM FACILITY MANAGER Ot 722.10 04/16/2014 BEVERLY TAO FARM FACILITY MANAGER Ot 786.50 04/16/2014 ZEHRA SINHA MD Ot [...] 789.07 04/30/2014 Ot 611.71 04/30/2014 CHONG HORTON FARM FACILITY MANAGER Ot 611.71 04/30/2014 ZEHRA SINHA MD Ot 278.00 04/30/2014 ZEHRA SIHNA MD Ot 722.52 04/30/2014 ZEHRA SINHA MD [...] SCREENING 05/07/2014 Ot 611.71 05/07/2014 DERRELL MEAD FARM FACILITY MANAGER Ot 454.9 05/07/2014 DERRELL MEAD FARM FACILITY MANAGER Ot 729.5 05/07/2014 DERRELL MEAD FARM FACILITY MANAGER Ot 823.80 05/07/2014 DERRELL MEAD FARM FACILITY MANAGER Ot E928.9 05/07/2014 BEVERLY TAO FARM FACILITY MANAGER Ot 719.45 05/07/2014 BEVERLY TAO FARM FACILITY MANAGER Ot 722.10 05/07/2014 BEVERLY TAO FARM FACILITY MANAGER Ot 786.50 05/07/2014 ZEHRA SINHA MD Ot [...] 789.07 05/14/2014 Ot 611.71 05/14/2014 CHONG HORTON FARM FACILITY MANAGER Ot 611.71 05/14/2014 ZEHRA SINHA MD Ot [...] V85.35 05/14/2014 Ot 611.71 05/14/2014 DERRELL MEAD FARM FACILITY MANAGER Ot 454.9 05/14/2014 DERRELL MEAD FARM FACILITY MANAGER Ot 729.5 05/14/2014 DERRELL MEAD FARM FACILITY MANAGER Ot 823.80 05/14/2014 DERRELL MEAD FARM FACILITY MANAGER Ot E928.9 05/14/2014 BEVERLY TAO FARM FACILITY MANAGER Ot 719.45 05/14/2014 BEVERLY TAO FARM FACILITY MANAGER Ot 722.10 05/14/2014 BEVERLY TAO FARM FACILITY MANAGER Ot 786.50 05/14/2014 ZEHRA SINHA MD Ot 278.00 05/14/2014 ZEHRA SINHA MD Ot 722.52 05/14/2014 ZEHRA SINHA MD Ot V58.69 05/14/2014 ZEHRA SINHA MD Ot V85.34 05/14/2014 ZEHRA SINHA MD Ot 278.00 05/14/2014 ZEHRA SINHA MD Ot 722.52 05/14/2014 ZEHRA SINHA MD Ot V58.67 05/14/2014 ZEHRA SINHA MD Ot V58.69 05/14/2014 ZEHRA SINHA MD Ot V85.35 05/15/2014 Ot 611.71 05/15/2014 DERRELL MEAD FARM FACILITY MANAGER Ot 454.9 05/15/2014 DERERLL MEAD FARM FACILITY MANAGER Ot 729.5 05/15/2014 DERRELL MEAD FARM FACILITY MANAGER Ot 823.80 05/15/2014 DERRELL MEAD FARM FACILITY MANAGER Ot E928.9 05/15/2014 BEVERLY TAO FARM FACILITY MANAGER Ot 719.45 05/15/2014 BEVERLY TAO FARM FACILITY MANAGER Ot 722.10 05/15/2014 BEVERLY TAO FARM FACILITY MANAGER Ot 786.50 05/15/2014 ZEHRA SINHA MD Ot [...] MCKNIGHT APRN Ot V76.12 07/18/2014 CATALINA MCKNIGHT LOCK SETTER Ot V76.12 07/18/2014 Ot 787.01 07/18/2014 Ot 787.91 07/18/2014 Ot 789.1 07/18/2014 Ot 787.01 07/18/2014 Ot 789.07 07/18/2014 Ot 611.71 07/18/2014 CHONG HORTON FARM FACILITY MANAGER Ot 611.71 07/18/2014 CATALINA MCKNIGHT LOCK SETTER Ot V76.12 08/15/2014 CATALINA MCKNIGHT APRN Ot [...] DELMA R Ot V57.1 08/28/2014 CATALINA MCKNIGHT LOCK SETTER Ot V76.12 08/29/2014 SWEET PA, DELMA R Ot 724.5 08/29/2014 SWEET PA, DELMA R Ot 729.2 08/29/2014 SWEET PA, DELMA R Ot V57.1 09/12/2014 CATALINA MCKNIGHT APRN Ot V76.12 09/18/2014 SWEET PA, DELMA R Ot 724.5 09/18/2014 SWEET PA, DLEMA R Ot 729.2 09/18/2014 SWEET PA, DELMA [...] DERMATITIS, UNSPECIF 06/06/2015 ANGIE KIRKPATRICK Ot 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 06/06/2015 ZEHRA SINHA [...] 08/21/2015 Ot 611.71 MASTODYNIA 08/21/2015 CHONG HORTON FARM FACILITY MANAGER Ot 611.71 MASTODYNIA 08/21/2015 Ot 787.01 NAUSEA WITH VOMITING 08/21/2015 Ot 787.91 DIARRHEA 08/21/2015 Ot 789.1 HEPATOMEGALY 08/21/2015 Ot 787.01 NAUSEA WITH VOMITING 08/21/2015 Ot 789.07 ABDOMINAL PAIN, GENERALIZED 08/21/2015 Ot 611.71 MASTODYNIA 08/21/2015 CHONG HORTON FARM FACILITY MANAGER Ot 611.71 MASTODYNIA 08/23/2015 ZEHRA SINHA MD Ot M51.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 DISC DISORDERS W RADICULO 08/23/2015 ZEHRA SINHA MD Ot Z79.899 OTHER LONGTERM (CURRENT) DRUG THERAPY 09/05/2015 ZEHRA SINHA MD, Ot M51.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 DISC DISORDERS W RADICULO 09/05/2015 ZEHRA SINHA MD, Ot Z79.899 OTHER STUDIO 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 (CURRENT) DRUG THERAPY 09/11/2015 ANGIE KIRKPATRICK Ot E11.9 TYPE 2 DIABETES MELLITUS WITHOUT COMPLIC 09/11/2015 ANGIE KIRKPATRICK Ot L25.9 UNSPECIFIED CONTACT DERMATITIS, UNSPECIF 09/11/2015 ANGIE KIRKPATRICK Ot 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 09/11/2015 ZEHRA SINHA MD, Ot M51.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 DISC DISORDERS W RADICULO 09/11/2015 ZEHRA SINHA MD, Ot Z79.899 OTHER STUDIO 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 (CURRENT) DRUG THERAPY 11/12/2015 ANGIE KIRKPATRICK Ot [...] PAIN IN LEFT LEG 2016 SOCO JOAQUIN LOCK SETTER Ot R20.2 PARESTHESIA OF SKIN 2016 SOCO JOAQUIN LOCK SETTER Ot Z79.4 LONGTERM (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 OF INSULIN 2016 SOCO JOAQUIN LOCK SETTER Ot 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 (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 OF ASPIRIN 2016 SOCO JOAQUIN LOCK SETTER Ot Z79.899 OTHER STUDIO 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 (CURRENT) DRUG THERAPY 03/05/2016 SOCO JOAQUIN LOCK SETTER Ot E11.9 TYPE 2 DIABETES MELLITUS WITHOUT COMPLIC 03/05/2016 SOCO JOAQUIN LOCK SETTER Ot I10 ESSENTIAL (PRIMARY) HYPERTENSION 03/05/2016 SOCO JOAQUIN LOCK SETTER Ot M25.552 PAIN IN LEFT HIP 03/05/2016 SOCO JOAQUIN LOCK SETTER Ot M54.5 LOW BACK PAIN 03/05/2016 SOCO JOAQUIN LOCK SETTER Ot M79.605 PAIN IN LEFT LEG 03/05/2016 SOCO JOAQUIN LOCK SETTER Ot R20.2 PARESTHESIA OF SKIN 03/05/2016 SOCO JOAQUIN LOCK SETTER Ot Z79.4 LONGTERM (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 OF INSULIN 03/05/2016 SOCO JOAQUIN LOCK SETTER Ot 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 (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 OF ASPIRIN 03/05/2016 SOCO JOAQUIN LOCK SETTER Ot Z79.899 OTHER STUDIO 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 (CURRENT) DRUG THERAPY 03/10/2016 SOCO JOAQUIN LOCK SETTER Ot E11.9 TYPE 2 DIABETES MELLITUS WITHOUT COMPLIC 03/10/2016 SOCO JOAQUIN LOCK SETTER Ot I10 ESSENTIAL (PRIMARY) HYPERTENSION 03/10/2016 SOCO JOAQUIN LOCK SETTER Ot M25.552 PAIN IN LEFT HIP 03/10/2016 SOCO JOAQUIN LOCK SETTER Ot M54.5 LOW BACK PAIN 03/10/2016 SOCO JOAQUIN LOCK SETTER Ot M79.605 PAIN IN LEFT LEG 03/10/2016 SOCO JOAQUIN LOCK SETTER Ot R20.2 PARESTHESIA OF SKIN 03/10/2016 SOCO JOAQUIN LOCK SETTER Ot Z79.4 LONGTERM (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 OF INSULIN 03/10/2016 SOCO JOAQUIN LOCK SETTER Ot 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 (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 OF ASPIRIN 03/10/2016 SOCO JOAQUIN LOCK SETTER Ot Z79.899 OTHER LONGTERM (CURRENT) DRUG THERAPY 03/18/2016 Ot 787.01 NAUSEA [...] 03/18/2016 Ot 611.71 MASTODYNIA 03/18/2016 CHONG HORTON FARM FACILITY MANAGER Ot 611.71 MASTODYNIA 03/19/2016 ANGIE KIRKPATRICK Ot G89.29 OTHER CHRONIC PAIN 03/19/2016 ANGIE KIRKPATRICK Ot M54.5 LOW BACK PAIN 03/20/2016 Ot 787.01 NAUSEA WITH VOMITING 03/20/2016 Ot 787.91 DIARRHEA 03/20/2016 Ot 789.1 HEPATOMEGALY 03/20/2016 Ot 787.01 NAUSEA WITH VOMITING 03/20/2016 Ot 789.07 ABDOMINAL PAIN, GENERALIZED 03/20/2016 Ot 611.71 MASTODYNIA 03/20/2016 CHONG HORTON FARM FACILITY MANAGER Ot 611.71 MASTODYNIA 03/20/2016 ZEHRA SINHA MD Ot E11.9 TYPE 2 DIABETES MELLITUS WITHOUT COMPLIC 03/20/2016 ZEHRA SINHA MD Ot M51.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 DISC DISORDERS W RADICULO 03/20/2016 ZEHRA SINHA MD Ot Z79.4 LONGTERM (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 OF INSULIN 04/01/2016 ZEHRA SINHA MD Ot E11.9 TYPE 2 DIABETES MELLITUS WITHOUT COMPLIC 04/01/2016 ZEHRA SINHA MD Ot M51.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 DISC DISORDERS W RADICULO 04/01/2016 ZEHRA SINHA MD Ot Z79.4 LONGTERM (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 OF INSULIN 04/10/2016 ZEHRA SINHA MD Ot M54.5 LOW BACK PAIN 04/22/2016 ZEHRA SINHA MD Ot M54.5 LOW BACK PAIN 05/01/2016 ZEHRA SINHA MD, Ot M54.5 LOW BACK PAIN 05/05/2016 ZEHRA SINHA MD Ot E11.9 TYPE 2 DIABETES MELLITUS WITHOUT COMPLIC 05/05/2016 ZEHRA SINHA MD Ot M51.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 DISC DISORDERS W RADICULO 05/05/2016 ZEHRA SINHA MD Ot Z79.4 LONGTERM (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 OF INSULIN 06/02/2016 SOCO JOAQUIN APRN Ot E11.65 TYPE 2 DIABETES MELLITUS WITH HYPERGLYCE 06/02/2016 SOCO JOAQUIN APRN Ot N39.0 URINARY TRACT INFECTION, SITE NOT SPECIF 06/02/2016 SOCO JOAQUIN APRN Ot R10.13 EPIGASTRIC PAIN 06/02/2016 SOCO JOAQUIN APRN Ot 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 06/02/2016 SOCO JOAQUIN APRN Ot 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 (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 OF ASPIRIN 06/02/2016 SOCO JOAQUIN APRN Ot Z79.84 LONGTERM (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 OF ORAL HYPOGLYC 06/02/2016 SOCO JOAQUIN APRN Ot Z79.899 OTHER LONGTERM (CURRENT) DRUG THERAPY 06/03/2016 ZEHRA SINHA MD Ot M54.5 LOW BACK PAIN 06/04/2016 SOCO JOAQUIN APRN Ot E11.65 TYPE 2 DIABETES MELLITUS WITH HYPERGLYCE 06/04/2016 SOCO JOAQUIN APRN Ot N39.0 URINARY TRACT INFECTION, SITE NOT SPECIF 06/04/2016 SOCO JOAQUIN APRN Ot R10.13 EPIGASTRIC PAIN 06/04/2016 SOCO JOAQUIN APRN Ot 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 06/04/2016 SOCO JOAQUIN APRN Ot Z79.82 LONGTERM (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 OF ASPIRIN 06/04/2016 SOCO JOAQUIN APRN Ot Z79.84 LONGTERM (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 OF ORAL HYPOGLYC 06/04/2016 SOCO JOAQUIN APRN Ot Z79.899 OTHER STUDIO 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 (CURRENT) DRUG THERAPY 06/22/2016 ZEHRA SINHA MD, Ot M54.5 LOW BACK PAIN 07/15/2016 ZEHRA SINHA MD, Ot M54.5 LOW BACK PAIN 08/14/2016 SOCO JOAQUIN APRN Ot E11.9 TYPE 2 DIABETES MELLITUS WITHOUT COMPLIC 08/14/2016 SOCO JOAQUIN APRN Ot M54.5 LOW BACK PAIN 08/14/2016 SOCO JOAQUIN APRN Ot Z79.4 LONGTERM (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 OF INSULIN 08/14/2016 SOCO JOAQUIN APRN Ot Z79.82 LONGTERM (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 OF ASPIRIN 08/14/2016 SOCO JOAQUIN APRN Ot Z79.84 LONGTERM (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 OF ORAL HYPOGLYC 08/14/2016 SOCO JOAQUIN APRN Ot Z79.899 OTHER STUDIO 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 (CURRENT) DRUG THERAPY 09/03/2016 Ot 787.01 NAUSEA WITH VOMITING 09/03/2016 Ot 787.91 DIARRHEA 09/03/2016 Ot 789.1 HEPATOMEGALY 09/03/2016 Ot 787.01 NAUSEA WITH VOMITING 09/03/2016 Ot 789.07 ABDOMINAL PAIN, GENERALIZED 09/03/2016 Ot 611.71 MASTODYNIA 09/03/2016 CHONG HORTON FARM FACILITY MANAGER Ot 611.71 MASTODYNIA 09/03/2016 ZEHRA SINHA MD Ot M54.5 LOW BACK PAIN 09/04/2016 Ot 787.01 NAUSEA WITH VOMITING 09/04/2016 Ot 787.91 DIARRHEA 09/04/2016 Ot 789.1 HEPATOMEGALY 09/04/2016 Ot 787.01 NAUSEA WITH VOMITING 09/04/2016 Ot 789.07 ABDOMINAL PAIN, GENERALIZED 09/04/2016 Ot 611.71 MASTODYNIA 09/04/2016 CHONG HORTON FARM FACILITY MANAGER Ot 611.71 MASTODYNIA 09/04/2016 ZEHRA SINHA MD Ot M54.5 LOW BACK PAIN 09/11/2016 SOCO JOAQUIN APRN Ot E11.65 TYPE 2 DIABETES MELLITUS WITH HYPERGLYCE 09/11/2016 SOCO JOAQUIN APRN Ot N39.0 URINARY TRACT INFECTION, SITE NOT SPECIF 09/11/2016 SOCO JOAQUIN APRN Ot R10.13 EPIGASTRIC PAIN 09/11/2016 SOCO JOAQUIN APRN Ot Z79.4 LONGTERM (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 OF INSULIN 09/11/2016 SOCO JOAQUIN APRN Ot Z79.82 LONGTERM (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 OF ASPIRIN 09/11/2016 SOCO JOAQUIN APRN Ot Z79.84 LONGTERM (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 OF ORAL HYPOGLYC 09/11/2016 JOAQUINSOOC BRIDGES Byron LOCK SETTER Ot Z79.899 OTHER LONGTERM (CURRENT) DRUG THERAPY 09/21/2016 BEVERLY TAOP Ot M54.9 DORSALGIA, UNSPECIFIED 10/02/2016 BEVERLY TAO FARM FACILITY MANAGER Ot M54.9 DORSALGIA, UNSPECIFIED 10/28/2016 BEVERLY TAO FARM FACILITY MANAGER Ot M54.9 DORSALGIA, UNSPECIFIED 05/13/2017 DELMA PIMENTEL MD Ot E11.9 TYPE 2 DIABETES MELLITUS WITHOUT COMPLIC 05/13/2017 DELMA PIMENTEL MD Ot E78.00 PURE HYPERCHOLESTEROLEMIA, UNSPECIFIED 05/13/2017 DELMA PIMENTEL MD Ot F31.9 BIPOLAR DISORDER, UNSPECIFIED 05/13/2017 DELMA PIMENTEL MD Ot F41.9 ANXIETY DISORDER, UNSPECIFIED 05/13/2017 DELMA PIMENTEL MD Ot G43.909 MIGRAINE, UNSP, NOT INTRACTABLE, WITHOUT 05/13/2017 DELMA PIMENTEL MD Ot H92.02 OTALGIA, LEFT EAR 05/13/2017 DELMA PIMENTEL MD Ot 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 05/13/2017 DELMA PIMENTEL MD Ot Z79.82 LONGTERM (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 OF ASPIRIN 05/13/2017 DELMA PIMENTEL MD Ot Z82.49 FAMILY HX OF ISCHEM HEART DIS AND OTH DI 05/13/2017 DELMA PIMENTEL MD, Ot Z87.19 PERSONAL HISTORY OF OTHER DISEASES OF TH 05/13/2017 DELMA PIMENTEL MD, Ot Z87.59 PERSONAL HISTORY OF COMP OF PREG, CHLDBR 05/13/2017 DELMA PIMENTEL MD, Ot Z88.1 ALLERGY STATUS TO OTHER ANTIBIOTIC AGENT 05/13/2017 DELMA PIMENTEL MD, Ot Z88.8 ALLERGY STATUS TO OTH DRUG/MEDS/BIOL SUB 05/14/2017 DELMA PIMENTEL MD Ot E11.9 TYPE 2 DIABETES MELLITUS WITHOUT COMPLIC 05/14/2017 DELMA PIMENTEL MD, Ot E78.00 PURE HYPERCHOLESTEROLEMIA, UNSPECIFIED 05/14/2017 DELMA PIMENTEL MD, Ot F31.9 BIPOLAR DISORDER, UNSPECIFIED 05/14/2017 DELMA PIMENTEL MD, Ot F41.9 ANXIETY DISORDER, UNSPECIFIED 05/14/2017 DELMA PIMENTEL MD, Ot G43.909 MIGRAINE, UNSP, NOT INTRACTABLE, WITHOUT 05/14/2017 DELMA PIMENTEL MD, Ot H92.02 OTALGIA, LEFT EAR 05/14/2017 DELMA PIMENTEL MD, Ot 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 05/14/2017 DELMA PIMENTEL MD, Ot 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 (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 OF ASPIRIN 05/14/2017 DELMA PIMENTEL MD, Ot Z82.49 FAMILY HX OF ISCHEM HEART DIS AND OTH DI 05/14/2017 DELMA PIMENTEL MD, Ot Z87.19 PERSONAL HISTORY OF OTHER DISEASES OF TH 05/14/2017 DELMA PIMENTEL MD, Ot Z87.59 PERSONAL HISTORY OF COMP OF PREG, CHLDBR 05/14/2017 DELMA PIMENTEL MD, Ot Z88.1 ALLERGY STATUS TO OTHER ANTIBIOTIC AGENT 05/14/2017 DELMA PIMENTEL MD, Ot Z88.8 ALLERGY STATUS TO OTH DRUG/MEDS/BIOL SUB 06/11/2017 ANGIE KIRKPATRICK Ot E11.9 TYPE 2 DIABETES MELLITUS WITHOUT COMPLIC 06/11/2017 ANGIE KIRKPATRICK Ot E78.00 PURE HYPERCHOLESTEROLEMIA, UNSPECIFIED 06/11/2017 ANGIE KIRKPATRICK Ot E86.0 DEHYDRATION 06/11/2017 ANGIE KIRKPATRICK Ot F31.9 BIPOLAR DISORDER, UNSPECIFIED 06/11/2017 ANGIE KIRKPATRICK Ot F41.9 ANXIETY DISORDER, UNSPECIFIED 06/11/2017 ANGIE KIRKPATRICK Ot 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, UNSPECIFIED 06/11/2017 ANGIE KIRKPATRICK Ot G43.909 MIGRAINE, UNSP, NOT INTRACTABLE, WITHOUT 06/11/2017 ANGIE KIRKPATRICK Ot N39.0 URINARY TRACT INFECTION, SITE NOT SPECIF 06/11/2017 ANGIE KIRKPATRICK Ot R10.30 LOWER ABDOMINAL PAIN, UNSPECIFIED 06/11/2017 ANGIE KIRKPATRICK Ot R11.2 NAUSEA WITH VOMITING, UNSPECIFIED 06/11/2017 ANGIE KIRKPATRICK Ot Z79.82 LONGTERM (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 OF ASPIRIN 06/11/2017 ANGIE KIRKPATRICK Ot Z87.59 PERSONAL HISTORY OF COMP OF PREG, CHLDBR 06/11/2017 ANGIE KIRKPATRICK Ot Z88.1 ALLERGY STATUS TO OTHER ANTIBIOTIC AGENT 06/11/2017 ANGIE KIRKPATRICK Ot Z88.8 ALLERGY STATUS TO OTH DRUG/MEDS/BIOL SUB 06/14/2017 SOCO JOAQUIN APRN Ot E11.9 TYPE 2 DIABETES MELLITUS WITHOUT COMPLIC 06/14/2017 SOCO JOAQUIN APRN Ot E78.00 PURE HYPERCHOLESTEROLEMIA, UNSPECIFIED 06/14/2017 SOCO JOAQUIN APRN Ot F31.9 BIPOLAR DISORDER, UNSPECIFIED 06/14/2017 SOCO JOAQUIN APRN Ot F41.9 ANXIETY DISORDER, UNSPECIFIED 06/14/2017 SOCO JOAQUIN APRN Ot G43.909 MIGRAINE, UNSP, NOT INTRACTABLE, WITHOUT 06/14/2017 SOCO JOAQUIN APRN Ot L30.9 DERMATITIS, UNSPECIFIED 06/14/2017 SOCO JOAQUIN APRN Ot R21 RASH AND OTHER NONSPECIFIC SKIN ERUPTION 06/14/2017 SOCO JOAQUIN APRN Ot 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 06/14/2017 SOCO JOAQUIN APRN Ot Z79.52 STUDIO 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 (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 OF SYSTEMIC STER 06/14/2017 SOCO JOAQUIN APRN Ot Z87.19 PERSONAL HISTORY OF OTHER DISEASES OF TH 06/14/2017 SOCO JOAQUIN APRN Ot Z87.59 PERSONAL HISTORY OF COMP OF PREG, CHLDBR 06/14/2017 SOCO JOAQUIN APRN Ot Z88.1 ALLERGY STATUS TO OTHER ANTIBIOTIC AGENT 06/14/2017 SOCO JOAQUIN APRN Ot Z88.8 ALLERGY STATUS TO OTH DRUG/MEDS/BIOL SUB 06/16/2017 SOCO JOAQUIN APRN Ot E11.9 TYPE 2 DIABETES MELLITUS WITHOUT COMPLIC 06/16/2017 SOCO JOAQUIN APRN Ot E78.00 PURE HYPERCHOLESTEROLEMIA, UNSPECIFIED 06/16/2017 SOCO JOAQUIN APRN Ot F31.9 BIPOLAR DISORDER, UNSPECIFIED 06/16/2017 SOCO JOAQUIN APRN Ot F41.9 ANXIETY DISORDER, UNSPECIFIED 06/16/2017 SOCO JOAQUIN APRN Ot G43.909 MIGRAINE, UNSP, NOT INTRACTABLE, WITHOUT 06/16/2017 SOCO JOAQUIN APRN Ot L30.9 DERMATITIS, UNSPECIFIED 06/16/2017 SOCO JOAQUIN APRN Ot R21 RASH AND OTHER NONSPECIFIC SKIN ERUPTION 06/16/2017 SOCO JOAQUIN APRN Ot 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 06/16/2017 SOCO JOAQUIN APRN Ot Z79.52 LONGTERM (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 OF SYSTEMIC STER 06/16/2017 SOCO JOAQUIN APRN Ot Z87.19 PERSONAL HISTORY OF OTHER DISEASES OF TH 06/16/2017 SOCO JOAQUIN APRN Ot Z87.59 PERSONAL HISTORY OF COMP OF PREG, CHLDBR 06/16/2017 SOCO JOAQUIN APRN Ot Z88.1 ALLERGY STATUS TO OTHER ANTIBIOTIC AGENT 06/16/2017 SOCO JOAQUIN APRN Ot Z88.8 ALLERGY STATUS TO OT DRUG/MEDS/BIOL SUB 09/01/2017 MAR MANE DO Ot E11.9 TYPE 2 DIABETES MELLITUS WITHOUT COMPLIC 09/01/2017 MAR MANE DO Ot E78.00 PURE HYPERCHOLESTEROLEMIA, UNSPECIFIED 09/01/2017 MAR MANE DO Ot F31.9 BIPOLAR DISORDER, UNSPECIFIED 09/01/2017 MAR MANE DO Ot F41.9 ANXIETY DISORDER, UNSPECIFIED 09/01/2017 MAR MANE DO Ot G43.909 MIGRAINE, UNSP, NOT INTRACTABLE, WITHOUT 09/01/2017 MAR MANE DO Ot K08.89 OTHER SPECIFIED DISORDERS OF TEETH AND S 09/01/2017 MAR MANE DO Ot Z79.4 LONGTERM (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 OF INSULIN 09/01/2017 MAR MANE DO Ot 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 (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9 BIPOLAR DISORDER, UNSPECIFIED 09/03/2017 ANTONIETTA MAR K Ot F41.9 ANXIETY DISORDER, UNSPECIFIED 09/03/2017 ANTONIETTA MORRIS MAR K Ot G43.909 MIGRAINE, UNSP, NOT INTRACTABLE, WITHOUT 09/03/2017 ANTONIETTA MORRIS MAR K Ot K08.89 OTHER SPECIFIED DISORDERS OF TEETH AND S 09/03/2017 ANTONIETTA MORRIS MAR K Ot Z79.4 LONGTERM (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 OF INSULIN 09/03/2017 ANTONIETTA MORRIS MAR K Ot 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 (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 OF ASPIRIN 09/03/2017 ANTONIETTA MORRIS MAR K Ot Z82.49 FAMILY HX OF ISCHEM HEART DIS AND OTH DI 09/03/2017 MAR MANE DO K Ot Z87.19 PERSONAL HISTORY OF OTHER DISEASES OF 09/03/2017 MAR MANE DO Ot Z87.59 PERSONAL HISTORY OF COMP OF PREG, CHLDBR 09/03/2017 ANTONIETTA MORRIS MAR K Ot Z88.0 ALLERGY STATUS TO PENICILLIN 09/03/2017 ANTONIETTA MORRIS MAR K Ot Z88.8 ALLERGY STATUS TO OTH DRUG/MEDS/BIOL SUB 10/02/2017 MYAH OLIVAS MD Ot A08.4 VIRAL INTESTINAL INFECTION, UNSPECIFIED 10/02/2017 MYAH OLIVAS MD Ot B37.3 CANDIDIASIS OF VULVA AND VAGINA 10/02/2017 MYAH OLIVAS MD Ot E11.9 TYPE 2 DIABETES MELLITUS WITHOUT COMPLIC 10/02/2017 MYAH OLIVAS MD Ot E78.00 PURE HYPERCHOLESTEROLEMIA, UNSPECIFIED 10/02/2017 MYAH OLIVAS MD Ot F31.9 BIPOLAR DISORDER, UNSPECIFIED 10/02/2017 MYAH OLIVAS MD Ot F41.9 ANXIETY DISORDER, UNSPECIFIED 10/02/2017 MYAH OLIVAS MD Ot G43.909 MIGRAINE, UNSP, NOT INTRACTABLE, WITHOUT 10/02/2017 MYAH OLIVAS MD Ot R19.7 DIARRHEA, UNSPECIFIED 10/02/2017 MYAH OLIVAS MD Ot 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 10/02/2017 MYAH OLIVAS MD Ot 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 (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 OF ASPIRIN 10/02/2017 MYAH OLIVAS MD Ot Z82.49 FAMILY HX OF ISCHEM HEART DIS AND OTH DI 10/02/2017 MYAH OLIVAS MD Ot Z87.19 PERSONAL HISTORY OF OTHER DISEASES OF TH 10/02/2017 MYAH OLIVAS MD Ot Z87.59 PERSONAL HISTORY OF COMP OF PREG, CHLDBR 10/02/2017 MYAH OLIVAS MD Ot Z88.0 ALLERGY STATUS TO PENICILLIN 01/11/2018 CHONG HORTON J FARM FACILITY 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 Ot 611.71 MASTODYNIA 01/11/2018 BHARATH GAYLE, ZEHRA Matthews Ot M54.5 LOW BACK PAIN 01/12/2018 ANTONIETTA DO, MAR K Ot E11.9 TYPE 2 DIABETES MELLITUS WITHOUT COMPLIC 01/12/2018 ANTONIETTA DO, MRA K Ot E78.00 PURE HYPERCHOLESTEROLEMIA, UNSPECIFIED 01/12/2018 ANTONIETTA DO, AMR K Ot F31.9 BIPOLAR DISORDER, UNSPECIFIED 01/12/2018 ANTONIETTA DO, MAR K Ot F41.9 ANXIETY DISORDER, UNSPECIFIED 01/12/2018 ANTONIETTA DO, MAR K Ot G43.909 MIGRAINE, UNSP, NOT INTRACTABLE, WITHOUT 01/12/2018 ANTONIETTA DO, MAR K Ot K08.89 OTHER SPECIFIED DISORDERS OF TEETH AND S 01/12/2018 ANTONIETTA DO MAR K Ot Z79.4 LONGTERM (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 OF INSULIN 01/12/2018 ANTONIETTA DO MAR K Ot 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 (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 OF ASPIRIN 01/12/2018 ANTONIETTA DO MAR K Ot Z82.49 FAMILY HX OF ISCHEM HEART DIS AND OTH DI 01/12/2018 MAR MANE DO Ot Z87.19 PERSONAL HISTORY OF OTHER DISEASES OF TH 01/12/2018 MAR MANE DO Ot Z87.59 PERSONAL HISTORY OF COMP OF PREG, CHLDBR 01/12/2018 MAR MANE DO Ot Z88.0 ALLERGY STATUS TO PENICILLIN 01/12/2018 MAR MANE DO Ot Z88.8 ALLERGY STATUS TO OTH DRUG/MEDS/BIOL SUB 01/18/2018 LOREN GAYLE, DELMA Quintana Ot E11.9 TYPE 2 DIABETES MELLITUS WITHOUT COMPLIC 01/18/2018 DELMA PIMENTEL MD Ot E78.00 PURE HYPERCHOLESTEROLEMIA, UNSPECIFIED 01/18/2018 DELMA PIMENTEL MD Ot F31.9 BIPOLAR DISORDER, UNSPECIFIED 01/18/2018 DELMA PIMENTEL MD Ot F41.9 ANXIETY DISORDER, UNSPECIFIED 01/18/2018 DELMA PIMENTEL MD Ot G43.909 MIGRAINE, UNSP, NOT INTRACTABLE, WITHOUT 01/18/2018 DELMA PIMENTEL MD Ot H92.02 OTALGIA, LEFT EAR 01/18/2018 DELMA PIMENTEL MD Ot Z79.4 LONGTERM (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 OF INSULIN 01/18/2018 DELMA PIMENTEL MD Ot Z79.82 LONGTERM (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 OF ASPIRIN 01/18/2018 DELMA PIMENTEL MD Ot Z82.49 FAMILY HX OF ISCHEM HEART DIS AND OTH DI 01/18/2018 DELMA PIMENTEL MD Ot Z87.19 PERSONAL HISTORY OF OTHER DISEASES OF 01/18/2018 DELMA PIMENTEL MD Ot Z87.59 PERSONAL HISTORY OF COMP OF PREG, CHLDBR 01/18/2018 DELMA PIMENTEL MD Ot Z88.1 ALLERGY STATUS TO OTHER ANTIBIOTIC AGENT 01/18/2018 DELMA PIMENTEL MD Ot Z88.8 ALLERGY STATUS TO OTH DRUG/MEDS/BIOL SUB 01/29/2018 SOCO JOAQUIN APRN Ot E11.9 TYPE 2 DIABETES MELLITUS WITHOUT COMPLIC 01/29/2018 SOCO JOAQUIN APRN Ot E78.00 PURE HYPERCHOLESTEROLEMIA, UNSPECIFIED 01/29/2018 SOCO JOAQUIN APRN Ot F31.9 BIPOLAR DISORDER, UNSPECIFIED 01/29/2018 SOCO JOAQUIN APRN Ot F41.9 ANXIETY DISORDER, UNSPECIFIED 01/29/2018 SOCO JOAQUIN APRN Ot G43.909 MIGRAINE, UNSP, NOT INTRACTABLE, WITHOUT 01/29/2018 SOCO JOAQUIN APRN Ot L30.9 DERMATITIS, UNSPECIFIED 01/29/2018 SOCO JOAQUIN APRN Ot R21 RASH AND OTHER NONSPECIFIC SKIN ERUPTION 01/29/2018 SOCO JOAQUIN APRN Ot 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 01/29/2018 SOCO JOAQUIN APRN Ot Z79.52 STUDIO 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 (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 OF SYSTEMIC STER 01/29/2018 SOCO JOAQUIN APRN Ot Z87.19 PERSONAL HISTORY OF OTHER DISEASES OF TH 01/29/2018 SOCO JOAQUIN APRN Ot Z87.59 PERSONAL HISTORY OF COMP OF PREG, CHLDBR 01/29/2018 SOCO JOAQUIN APRN Ot Z88.1 ALLERGY STATUS TO OTHER ANTIBIOTIC AGENT 01/29/2018 SOCO JOAUQIN APRN Ot Z88.8 ALLERGY STATUS TO OTH DRUG/MEDS/BIOL SUB 03/17/2018 KEYONNA RICO MD Ot E11.65 TYPE 2 DIABETES MELLITUS WITH HYPERGLYCE 03/17/2018 KEYONNA RICO MD Ot E78.00 PURE HYPERCHOLESTEROLEMIA, UNSPECIFIED 03/17/2018 KEYONNA RICO MD Ot F31.9 BIPOLAR DISORDER, UNSPECIFIED 03/17/2018 KEYONNA RICO MD Ot F41.9 ANXIETY DISORDER, UNSPECIFIED 03/17/2018 KEYONNA RICO MD Ot 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, UNSPECIFIED 03/17/2018 KEYONNA RICO MD Ot G43.909 MIGRAINE, UNSP, NOT INTRACTABLE, WITHOUT 03/17/2018 KEYONNA RICO MD Ot R10.11 RIGHT UPPER QUADRANT PAIN 03/17/2018 KEYONNA RICO MD Ot R11.0 NAUSEA 03/17/2018 KEYONNA RICO MD Ot Z79.4 LONGTERM (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 OF INSULIN 03/17/2018 KEYONNA RICO MD Ot Z79.82 LONGTERM (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 OF ASPIRIN 03/17/2018 KEYONNA RICO MD Ot Z87.19 PERSONAL HISTORY OF OTHER DISEASES OF 03/17/2018 KEYONNA RICO MD Ot Z88.1 ALLERGY STATUS TO OTHER ANTIBIOTIC AGENT 03/17/2018 KEYONNA RICO MD Ot Z88.8 ALLERGY STATUS TO OTH DRUG/MEDS/BIOL SUB 03/17/2018 KEYONNA RICO MD Ot Z98.890 OTHER SPECIFIED POSTPROCEDURAL STATES 03/21/2018 KEYONNA RICO MD Ot E11.65 TYPE 2 DIABETES MELLITUS WITH HYPERGLYCE 03/21/2018 KEYONNA RICO MD Ot E78.00 PURE HYPERCHOLESTEROLEMIA, UNSPECIFIED 03/21/2018 KEYONNA RICO MD Ot F31.9 BIPOLAR DISORDER, UNSPECIFIED 03/21/2018 KEYONNA RICO MD Ot F41.9 ANXIETY DISORDER, UNSPECIFIED 03/21/2018 KEYONNA RICO MD Ot 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, UNSPECIFIED 03/21/2018 KEYONNA RICO MD Ot G43.909 MIGRAINE, UNSP, NOT INTRACTABLE, WITHOUT 03/21/2018 KEYONNA RICO MD Ot R10.11 RIGHT UPPER QUADRANT PAIN 03/21/2018 KEYONNA RICO MD Ot R11.0 NAUSEA 03/21/2018 KEYONNA RICO MD Ot Z79.4 LONGTERM (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 OF INSULIN 03/21/2018 KEYONNA RICO MD Ot Z79.82 LONGTERM (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 OF ASPIRIN 03/21/2018 KEYONNA RICO MD Ot Z87.19 PERSONAL HISTORY OF OTHER DISEASES OF 03/21/2018 KEYONNA RICO MD Ot Z88.1 ALLERGY STATUS TO OTHER ANTIBIOTIC AGENT 03/21/2018 KEYONNA RICO MD, Ot Z88.8 ALLERGY STATUS TO OTH DRUG/MEDS/BIOL SUB 03/21/2018 KEYONNA RICO MD Ot Z98.890 OTHER SPECIFIED POSTPROCEDURAL STATES 03/23/2018 KEYONNA RICO MD Ot E11.65 TYPE 2 DIABETES MELLITUS WITH HYPERGLYCE 03/23/2018 KEYONNA RICO MD Ot E78.00 PURE HYPERCHOLESTEROLEMIA, UNSPECIFIED 03/23/2018 KEYONNA RICO MD Ot F31.9 BIPOLAR DISORDER, UNSPECIFIED 03/23/2018 KEYONNA RICO MD, Ot F41.9 ANXIETY DISORDER, UNSPECIFIED 03/23/2018 KEYONNA RICO MD Ot 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, UNSPECIFIED 03/23/2018 KEYONNA RICO MD, Ot G43.909 MIGRAINE, UNSP, NOT INTRACTABLE, WITHOUT 03/23/2018 KEYONNA RICO MD Ot R10.11 RIGHT UPPER QUADRANT PAIN 03/23/2018 KEYONNA RICO MD Ot R11.0 NAUSEA 03/23/2018 KEYONNA RICO MD, Ot Z79.4 LONGTERM (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 OF INSULIN 03/23/2018 KEYONNA RICO MD Ot 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 (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 OF ASPIRIN 03/23/2018 KEYONNA RICO MD Ot Z87.19 PERSONAL HISTORY OF OTHER DISEASES OF TH 03/23/2018 KEYONNA RICO MD Ot Z88.1 ALLERGY STATUS TO OTHER ANTIBIOTIC AGENT 03/23/2018 KEYONNA RICO MD, Ot Z88.8 ALLERGY STATUS TO OTH DRUG/MEDS/BIOL SUB 03/23/2018 KEYONNA RICO MD Ot Z98.890 OTHER SPECIFIED POSTPROCEDURAL STATES 03/24/2018 SOCO JOAQUIN APRN Ot E11.9 TYPE 2 DIABETES MELLITUS WITHOUT COMPLIC 03/24/2018 SOCO JOAQUIN APRN Ot E78.00 PURE HYPERCHOLESTEROLEMIA, UNSPECIFIED 03/24/2018 SOCO JOAQUIN APRN Ot F31.9 BIPOLAR DISORDER, UNSPECIFIED 03/24/2018 SOCO JOAQUIN APRN Ot F41.9 ANXIETY DISORDER, UNSPECIFIED 03/24/2018 SOCO JOAQUIN APRN Ot G43.909 MIGRAINE, UNSP, NOT INTRACTABLE, WITHOUT 03/24/2018 SOCO JOAQUIN APRN Ot N39.0 URINARY TRACT INFECTION, SITE NOT SPECIF 03/24/2018 SOCO JOAQUIN APRN Ot R73.09 OTHER ABNORMAL GLUCOSE 03/24/2018 SOCO JOAQUIN APRN Ot Z79.82 LONGTERM (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 OF ASPIRIN 03/24/2018 SOCO JOAQUIN APRN Ot Z82.49 FAMILY HX OF ISCHEM HEART DIS AND OTH DI 03/24/2018 SOCO JOAQUIN APRN Ot Z87.19 PERSONAL HISTORY OF OTHER DISEASES OF TH 03/24/2018 SOCO JOAQIUN LOCK SETTER Ot Z88.0 ALLERGY STATUS TO PENICILLIN 03/24/2018 SOCO JOAQUIN LOCK SETTER Ot Z88.8 ALLERGY STATUS TO OTH DRUG/MEDS/BIOL SUB 03/24/2018 SOCO JOAQUIN APRN Ot Z98.890 OTHER SPECIFIED POSTPROCEDURAL STATES Procedures Code Description [place] [address] A1C (IN-HOUSE) 01/07/2012 57046 ROUTINE VENIPUNCTURE 02/05/2012 15954 MICRO ALBUMIN-IN HOUSE 02/05/2012 39118 CMP 02/05/2012 [id number] GFR CALC (RESULT ONLY) 02/05/2012 07479 LIPID PANEL 02/05/2012 09034 MICROALBUMIN 02/06/2012 37868 INDIV PSYTX 45/50 MIN 02/08/2012 31752 GLUCOSE 02/15/2012 08575 INDIV PSYTX 45/50 MIN 02/15/2012 99338 INDIV PSYTX 45/50 MIN 02/29/2012 12171 INDIV PSYTX 45/50 MIN 03/14/2012 40494 US BREAST(S) ULTRASOUND, BOTH 04/06/2012 81642 INDIV PSYTX 45/50 MIN 04/07/2012 25314 PSYTX PT&/FAMILY 45 MINUTES 04/07/2012 14282 MAMMOGRAM DX, LARRY 04/11/2012 61411 MAMMOGRAM, SCREENING 04/11/2012 96487 PSYTX PT&/FAMILY 45 MINUTES 04/11/2012 03552 PSYTX PT&/FAMILY 45 MINUTES 05/02/2012 61318 PSYTX PT&/FAMILY 45 MINUTES 05/06/2012 15236 PSYTX PT&/FAMILY 45 MINUTES 05/20/2012 83567 A1C (IN-HOUSE) 05/30/2012 77106 PSYTX PT&/FAMILY 45 MINUTES 06/22/2012 23060 PSYTX PT&/FAMILY 45 MINUTES 07/20/2012 72180 GLUCOSE FINGER STICK 08/05/2012 60695 MICRO ALBUMIN-IN HOUSE 08/25/2012 10980 A1C (IN-HOUSE) 08/25/2012 21145 MICROALBUMIN 08/25/2012 77546 ROUTINE VENIPUNCTURE 08/26/2012 28210 CMP 08/26/2012 12264 LIPID PANEL 08/26/2012 2120111 GFR CALC (RESULT ONLY) 08/26/2012 59382 CBC 08/26/2012 13465 PSYTX PT&/FAMILY 45 MINUTES 09/06/2012 14654 PSYTX PT&/FAMILY 30 MINUTES 11/10/2012 94827 PSYTX PT&/FAMILY 45 MINUTES 11/10/2012 48821 OXIMETRY 12/07/2012 91158 PSYTX PT&/FAMILY 45 MINUTES 12/22/2012 23042 PSYTX PT&/FAMILY 45 MINUTES 01/05/2013 23895 A1C (IN-HOUSE) 01/09/2013 93646 PSYTX PT&/FAMILY 45 MINUTES 03/08/2013 78182 MAMMOGRAM, SCREENING 03/09/2013 07226 PSYTX PT&/FAMILY 45 MINUTES 04/25/2013 92040 EXCISION BENIGN LESION 0.6- 1 cm (spcify location in [facility] description) 04/26/2013 37211 PSYTX PT&/FAMILY 45 MINUTES 05/05/2013 63684 PSYTX PT&/FAMILY 45 MINUTES 05/19/2013 03422 ROUTINE VENIPUNCTURE 06/05/2013 87400 A1C (IN-HOUSE) 06/05/2013 77326 UA LONG DIP 06/05/2013 08426 MICRO ALBUMIN-IN HOUSE 06/05/2013 42909 CBC 06/05/2013 74415 CMP 06/05/2013 83646 LIPID PANEL 06/05/2013 65156 MICROALBUMIN 06/05/2013 8018843 GFR CALC (RESULT ONLY) 06/05/2013 69780 LIPASE 06/05/2013 32666 PSYTX PT&/FAMILY 30 MINUTES 06/21/2013 69797 PSYTX PT&/FAMILY 45 MINUTES 06/27/2013 31721 PSYTX PT&/FAMILY 45 MINUTES 07/11/2013 71340 XRAY LUMBAR SPINE 2 OR 3 VIEWS 07/17/2013 05009 XRAY HIP LEFT UNILATERAL MIN 2 VIEWS 07/17/2013 65082 XRAY TIBULA FIBULA LEFT 07/17/2013 ORTHOPEDI DERRELL MEAD 07/17/2013 30404 PSYTX PT&/FAMILY 45 MINUTES 08/02/2013 61563 MRI EXTREMITY, LOWER LEFT, W /O CONTRAST 08/17/2013 52070 PSYTX PT&/FAMILY 45 MINUTES 09/05/2013 64539 MRI SPINE (LUMBAR) W/O CONTRAST 09/11/2013 90901 A1C (IN-HOUSE) 09/11/2013 50209 PSYTX PT&/FAMILY 45 MINUTES 09/26/2013 28122 PSYTX PT&/FAMILY 45 MINUTES 10/09/2013 16841 PSYTX PT&/FAMILY 30 MINUTES 11/13/2013 66392 PSYTX PT&/FAMILY 30 MINUTES 12/21/2013 07227 PSYTX PT&/FAMILY 45 MINUTES 01/04/2014 40309 PSYTX PT&/FAMILY 45 MINUTES 02/01/2014 18244 A1C (IN-HOUSE) 02/12/2014 65909 MICRO ALBUMIN-IN HOUSE 02/12/2014 12779 TEST, URINE (IN- HOUSE) 02/12/2014 17208 MICROALBUMIN 02/13/2014 48873 ROUTINE VENIPUNCTURE 02/15/2014 30766 PSYTX PT&/FAMILY 45 MINUTES 02/15/2014 94623 LIPID PANEL 02/15/2014 42643 CBC 02/15/2014 63812 CMP 02/15/2014 4006950 GFR CALC (RESULT ONLY) 02/15/2014 44582 TSH 02/15/2014 20823 TEST, URINE (IN- HOUSE) 02/19/2014 25158 PSYTX PT&/FAMILY 45 MINUTES 03/08/2014 97875 PSYTX PT&/FAMILY 30 MINUTES 03/14/2014 81132 ROUTINE VENIPUNCTURE 03/20/2014 58279 CBC 03/20/2014 84147 MAGNESIUM 03/20/2014 26967 PSYTX PT&/FAMILY 45 MINUTES 04/10/2014 90779 PSYTX PT&/FAMILY 45 MINUTES 04/18/2014 93822 MAMMOGRAM, SCREENING 05/03/2014 67756 PSYTX PT&/FAMILY 30 MINUTES 05/08/2014 10033 A1C (IN-HOUSE) 06/26/2014 OPHTHALMO MARIO ZALDIVAR 07/16/2014 90330 PSYTX PT&/FAMILY 30 MINUTES 07/16/2014 Results Test Result Range CBC With Differential/Platelet - 02/14/16 10:53 WBC 8.8 x10E3/uL 3.4-10.8 RBC 5.10 x10E6/uL 3.77-5.28 Hemoglobin 14.1 g/dL 11.1-15.9 Hematocrit 42.6 % 34.0-46.6 MCV 84 fL 79-97 MCH 27.6 pg 26.6-33.0 MCHC 33.1 g/dL 31.5-35.7 RDW 14.0 % 12.3-15.4 Platelets 251 x10E3/uL 150-379 Neutrophils 65 % Lymphs 23 % Monocytes 8 % Eos 2 % Basos 1 % Neutrophils (Absolute) 5.9 x10E3/uL 1.4-7.0 Lymphs (Absolute) 2.0 x10E3/uL 0.7-3.1 Monocytes(Absolute) 0.7 x10E3/uL 0.1-0.9 Eos (Absolute) 0.1 x10E3/uL 0.0-0.4 Baso (Absolute) 0.1 x10E3/uL 0.0-0.2 Immature Granulocytes 1 % Immature Grans (Abs) 0.1 x10E3/uL 0.0-0.1 Comp. Metabolic Panel (14) - 02/14/16 10:53 Glucose, Serum 242 mg/dL 65-99 BUN 16 mg/dL 6-24 Creatinine, Serum 0.40 mg/dL 0.57-1.00 eGFR If NonAfricn Am 129 mL/min/1.73 >59 eGFR If Africn Am 149 mL/min/1.73 >59 BUN/Creatinine Ratio 40 9-23 Sodium, Serum 137 mmol/L 136-144 Potassium, Serum 4.1 mmol/L 3.5-5.2 Chloride, Serum 99 mmol/L 97-106 Carbon Dioxide, Total 18 mmol/L 18-29 Calcium, Serum 9.3 mg/dL 8.7-10.2 Protein, Total, Serum 6.8 g/dL 6.0-8.5 Albumin, Serum 3.9 g/dL 3.5-5.5 Globulin, Total 2.9 g/dL 1.5-4.5 A/G Ratio 1.3 1.1-2.5 Bilirubin, Total 0.3 mg/dL 0.0-1.2 Alkaline Phosphatase, S 92 IU/L 39-117 AST (SGOT) 18 IU/L 0-40 ALT (SGPT) 21 IU/L 0-32 Lipid Panel - 02/14/16 10:53 Cholesterol, Total 277 mg/dL 100-199 Triglycerides 490 mg/dL 0-149 HDL Cholesterol 31 mg/dL >39 VLDL Cholesterol Coy Comment mg/dL 5-40 LDL Cholesterol Calc Comment mg/dL 0-99 Capillary blood glucose measurement by glucometer (mass/volume) - 03/20/16 08: 42 Capillary blood glucose measurement by glucometer (mass/volume) 302 mg/dL 70-110 Lipid Panel - 05/27/16 09:12 Cholesterol, Total 277 mg/dL 100-199 Triglycerides 447 mg/dL 0-149 HDL Cholesterol 35 mg/dL >39 VLDL Cholesterol Coy Comment mg/dL 5-40 LDL Cholesterol Calc Comment mg/dL 0-99 Complete urinalysis with reflex to culture - [...] culture - 06/02/16 11:55 Bacterial urine culture [id number] NRG COLONY COUNT <10,000 NRG FTX;REPORTABLE PLUS, [...] susceptibility test by minimum inhibitory concentration - [facility] Complete blood count (CBC) with automated white [...] - 06/02/16 12:40 Lipase 41 U/L 8-78 Pap Lb, HPV-hr - 06/17/16 15:19 HPV, high-risk Negative Negative DIAGNOSIS: Comment Specimen adequacy: Comment Clinician provided ICD10: Comment Performed by: Comment . . Note: Comment Complete blood count (CBC) with automated white [...] culture YES NRG Bacterial urine culture - 06/11/17 13:53 Bacterial urine culture [id number] NRG COLONY COUNT >100,000/ML NRG FTX;REPORTABLE SEE COMMENT NRG URINE CULTURE RESULTS PLUS NRG Bacterial susceptibility panel - 06/11/17 13:53 Gentamicin susceptibility test by minimum inhibitory concentration < = NRG Trimethoprim/sulfamethoxazole susceptibility test by minimum inhibitoryconcentration S NRG Ampicillin susceptibility test by minimum inhibitory concentration 4 NRG Tobramycin susceptibility test by minimum inhibitory concentration < = NRG Cefazolin susceptibility test by minimum inhibitory concentration < = NRG Ceftriaxone susceptibility test by minimum inhibitory concentration <= NRG Ampicillin/sulbactam susceptibility test by minimum inhibitory concentration <= NRG Piperacillin/tazobactam susceptibility test by minimum inhibitory concentration S NRG Ciprofloxacin susceptibility test by minimum inhibitory concentration <= NRG Meropenem susceptibility test by minimum inhibitory concentration < = NRG Nitrofurantoin susceptibility test by minimum inhibitory concentration <= NRG Aztreonam susceptibility test by minimum inhibitory concentration < = NRG Extended spectrum beta lactamase (ESBL) producing bacteria susceptibility test by minimum inhibitory concentration - NRG Blood lactic acid measurement (moles/volume) - 06/11/17 14:24 Blood lactic acid measurement (moles/volume) 1.88 mmol/L 0.50-2.00 Bacterial blood culture - 06/11/17 14:24 Bacterial blood culture NG NRG Bacterial blood culture - 06/11/17 14:53 Bacterial blood culture NG NRG Urine beta human chorionic gonadotropin (hCG) measurement - 10/02/17 11:07 Urine beta human chorionic gonadotropin (hCG) measurement NEGATIVE NEGATIVE Complete urinalysis with reflex to culture - 10/02/17 11:07 Urine color determination YELLOW NRG Urine clarity determination SLIGHTLY CLOUDY NRG Urine pH measurement by test strip 5 5-9 Specific gravity of urine by test strip 1.020 1.016- 1.022 Urine protein assay by test strip, semi-quantitative 1+ NEGATIVE Urine glucose detection by automated test strip 4+ NEGATIVE Erythrocytes detection in urine sediment by light microscopy 4+ NEGATIVE Urine ketones detection by automated test strip 3+ NEGATIVE Urine nitrite detection by test strip NEGATIVE NEGATIVE Urine total bilirubin detection by test strip NEGATIVE NEGATIVE Urine urobilinogen measurement by automated test strip (mass/volume) NORMAL NORMAL Urine leukocyte esterase detection by dipstick NEGATIVE NEGATIVE Automated urine sediment erythrocyte count by microscopy (number/high power field) [HPF] NRG Automated urine sediment leukocyte count by microscopy (number/high power field ) [HPF] NRG Bacteria detection in urine sediment by light microscopy NEGATIVE NRG Squamous epithelial cells detection in urine sediment by light microscopy 2-5 NRG Crystals detection in urine sediment by light microscopy NONE NRG Casts detection in urine sediment by light microscopy NONE NRG Mucus detection in urine sediment by light microscopy NEGATIVE NRG Complete urinalysis with reflex to culture NO NRG Yeast detection in urine sediment by light microscopy FEW NRG CBC - 12/08/17 09:14 WHITE BLOOD CELL COUNT 7.3 Thousand/uL 3.8-10.8 RED BLOOD CELL COUNT 5.10 Million/uL 3.80-5.10 HEMOGLOBIN 14.6 g/dL 11.7-15.5 HEMATOCRIT 43.7 % 35.0-45.0 MCV 85.7 fL 80.0-100.0 MCH 28.6 pg 27.0-33.0 MCHC 33.4 g/dL 32.0-36.0 RDW 12.9 % 11.0-15.0 PLATELET COUNT 242 Thousand/uL 140-400 MPV 10.4 fL 7.5-12.5 ABSOLUTE NEUTROPHILS 4475 cells/uL 4512-7036 ABSOLUTE LYMPHOCYTES 2124 cells/uL 850-3900 ABSOLUTE MONOCYTES 489 cells/uL 200-950 ABSOLUTE EOSINOPHILS 110 cells/uL 15-500 ABSOLUTE BASOPHILS 102 cells/uL 0-200 NEUTROPHILS 61.3 % NRG LYMPHOCYTES 29.1 % NRG MONOCYTES 6.7 % NRG EOSINOPHILS 1.5 % NRG BASOPHILS 1.4 % NRG Complete blood count (CBC) with automated white blood cell (WBC) differential - 03/17/18 09:40 Blood leukocytes automated count (number/volume) 11.9 10*3/uL 4.3-11.0 Blood erythrocytes automated count (number/volume) 5.44 10*6/uL 4.35-5.85 Venous blood hemoglobin measurement (mass/volume) 15.5 g/dL 11.5-16.0 Blood hematocrit (volume fraction) 45 % 35-52 Automated erythrocyte mean corpuscular volume 83 [foz_us] 80-99 Automated erythrocyte mean corpuscular hemoglobin (mass per erythrocyte) 29 pg 25-34 Automated erythrocyte mean corpuscular hemoglobin concentration measurement ( mass/volume) 35 g/dL 32-36 Automated erythrocyte distribution width ratio 13.6 % 10.0-14.5 Automated blood platelet count (count/volume) 316 10*3/uL 130-400 Automated blood platelet mean volume measurement 10.2 [foz_us] 7.4-10.4 Automated blood neutrophils/100 leukocytes 79 % 42-75 Automated blood lymphocytes/100 leukocytes 15 % 12-44 Blood monocytes/100 leukocytes 5 % 0-12 Automated blood eosinophils/100 leukocytes 0 % 0-10 Automated blood basophils/100 leukocytes 0 % 0-10 Blood neutrophils automated count (number/volume) 9.5 10*3 1.8-7.8 Blood lymphocytes automated count (number/volume) 1.8 10*3 1.0-4.0 Blood monocytes automated count (number/volume) 0.6 10*3 0.0-1.0 Automated eosinophil count 0.0 10*3/uL 0.0-0.3 Automated blood basophil count (count/volume) 0.1 10*3/uL 0.0-0.1 Comprehensive metabolic panel - 03/17/18 09:40 Serum or plasma sodium measurement (moles/volume) 138 mmol/L 135-145 Serum or plasma potassium measurement (moles/volume) 4.1 mmol/L 3.6-5.0 Serum or plasma chloride measurement (moles/volume) 105 mmol/L 98-107 Carbon dioxide 13 mmol/L 21-32 Serum or plasma anion gap determination (moles/volume) 20 mmol/L 5-14 Serum or plasma urea nitrogen measurement (mass/volume) 21 mg/dL 7-18 Serum or plasma creatinine measurement (mass/volume) 0.74 mg/dL 0.60-1.30 Serum or plasma urea nitrogen/creatinine mass ratio 28 NRG Serum or plasma creatinine measurement with calculation of estimated glomerular filtration rate > NRG Serum or plasma glucose measurement (mass/volume) 348 mg/dL 70-105 Serum or plasma calcium measurement (mass/volume) 9.6 mg/dL 8.5-10.1 Serum or plasma total bilirubin measurement (mass/volume) 0.4 mg/dL 0.1-1.0 Serum or plasma alkaline phosphatase measurement (enzymatic activity/volume) 116 U/L 40-136 Serum or plasma aspartate aminotransferase measurement (enzymatic activity/ volume) 17 U/L 5-34 Serum or plasma alanine aminotransferase measurement (enzymatic activity/volume ) 20 U/L 0-55 Serum or plasma protein measurement (mass/volume) 8.3 g/dL 6.4-8.2 Serum or plasma albumin measurement (mass/volume) 4.5 g/dL 3.2-4.5 CALCIUM CORRECTED 9.2 mg/dL 8.5-10.1 Magnesium - 03/17/18 09:40 Magnesium 2.1 mg/dL 1.8-2.4 Lipase - 03/17/18 09:40 Lipase 37 U/L 8-78 Complete urinalysis with reflex to culture - 03/17/18 10:01 Urine color determination YELLOW NRG Urine clarity determination CLEAR NRG Urine pH measurement by test strip 5 5-9 Specific gravity of urine by test strip 1.015 1.016- 1.022 Urine protein assay by test strip, semi-quantitative NEGATIVE NEGATIVE Urine glucose detection by automated test strip 4+ NEGATIVE Erythrocytes detection in urine sediment by light microscopy NEGATIVE NEGATIVE Urine ketones detection by automated test strip 4+ NEGATIVE Urine nitrite detection by test strip NEGATIVE NEGATIVE Urine total bilirubin detection by test strip NEGATIVE NEGATIVE Urine urobilinogen measurement by automated test strip (mass/volume) NORMAL NORMAL Urine leukocyte esterase detection by dipstick NEGATIVE NEGATIVE Automated urine sediment erythrocyte count by microscopy (number/high power field) [HPF] NRG Automated urine sediment leukocyte count by microscopy (number/high power field ) NONE NRG Bacteria detection in urine sediment by light microscopy NEGATIVE NRG Squamous epithelial cells detection in urine sediment by light microscopy 2-5 NRG Crystals detection in urine sediment by light microscopy NONE NRG Casts detection in urine sediment by light microscopy NONE NRG Mucus detection in urine sediment by light microscopy NEGATIVE NRG Complete urinalysis with reflex to culture NO NRG Capillary blood glucose measurement by glucometer (mass/volume) - 03/17/18 11: 47 Capillary blood glucose measurement by glucometer (mass/volume) 197 mg/dL 70-110 Complete blood count (CBC) with automated white blood cell (WBC) differential - 03/21/18 11:06 Blood leukocytes automated count (number/volume) 9.3 10*3/uL 4.3-11.0 Blood erythrocytes automated count (number/volume) 5.08 10*6/uL 4.35-5.85 Venous blood hemoglobin measurement (mass/volume) 14.4 g/dL 11.5-16.0 Blood hematocrit (volume fraction) 41 % 35-52 Automated erythrocyte mean corpuscular volume 81 [foz_us] 80-99 Automated erythrocyte mean corpuscular hemoglobin (mass per erythrocyte) 28 pg 25-34 Automated erythrocyte mean corpuscular hemoglobin concentration measurement ( mass/volume) 35 g/dL 32-36 Automated erythrocyte distribution width ratio 13.6 % 10.0-14.5 Automated blood platelet count (count/volume) 273 10*3/uL 130-400 Automated blood platelet mean volume measurement 9.8 [foz_us] 7.4-10.4 Automated blood neutrophils/100 leukocytes 71 % 42-75 Automated blood lymphocytes/100 leukocytes 21 % 12-44 Blood monocytes/100 leukocytes 7 % 0-12 Automated blood eosinophils/100 leukocytes 0 % 0-10 Automated blood basophils/100 leukocytes 1 % 0-10 Blood neutrophils automated count (number/volume) 6.6 10*3 1.8-7.8 Blood lymphocytes automated count (number/volume) 2.0 10*3 1.0-4.0 Blood monocytes automated count (number/volume) 0.6 10*3 0.0-1.0 Automated eosinophil count 0.0 10*3/uL 0.0-0.3 Automated blood basophil count (count/volume) 0.1 10*3/uL 0.0-0.1 Comprehensive metabolic panel - 03/21/18 11:06 Serum or plasma sodium measurement (moles/volume) 139 mmol/L 135-145 Serum or plasma potassium measurement (moles/volume) 3.8 mmol/L 3.6-5.0 Serum or plasma chloride measurement (moles/volume) 106 mmol/L 98-107 Carbon dioxide 19 mmol/L 21-32 Serum or plasma anion gap determination (moles/volume) 14 mmol/L 5-14 Serum or plasma urea nitrogen measurement (mass/volume) 7 mg/dL 7-18 Serum or plasma creatinine measurement (mass/volume) 0.60 mg/dL 0.60-1.30 Serum or plasma urea nitrogen/creatinine mass ratio 12 NRG Serum or plasma creatinine measurement with calculation of estimated glomerular filtration rate > NRG Serum or plasma glucose measurement (mass/volume) 187 mg/dL 70-105 Serum or plasma calcium measurement (mass/volume) 9.1 mg/dL 8.5-10.1 Serum or plasma total bilirubin measurement (mass/volume) 0.5 mg/dL 0.1-1.0 Serum or plasma alkaline phosphatase measurement (enzymatic activity/volume) 87 U/L 40-136 Serum or plasma aspartate aminotransferase measurement (enzymatic activity/ volume) 15 U/L 5-34 Serum or plasma alanine aminotransferase measurement (enzymatic activity/volume ) 19 U/L 0-55 Serum or plasma protein measurement (mass/volume) 7.4 g/dL 6.4-8.2 Serum or plasma albumin measurement (mass/volume) 4.1 g/dL 3.2-4.5 CALCIUM CORRECTED 9.0 mg/dL 8.5-10.1 Lipase - 03/21/18 11:06 Lipase 36 U/L 8-78 Capillary blood glucose measurement by glucometer (mass/volume) - 03/21/18 11: 10 Capillary blood glucose measurement by glucometer (mass/volume) 183 mg/dL 70-110 Complete urinalysis with reflex to culture - 03/21/18 11:11 Urine color determination YELLOW NRG Urine clarity determination CLEAR NRG Urine pH measurement by test strip 5 5-9 Specific gravity of urine by test strip 1.025 1.016- 1.022 Urine protein assay by test strip, semi-quantitative 3+ NEGATIVE Urine glucose detection by automated test strip 3+ NEGATIVE Erythrocytes detection in urine sediment by light microscopy 1+ NEGATIVE Urine ketones detection by automated test strip 3+ NEGATIVE Urine nitrite detection by test strip NEGATIVE NEGATIVE Urine total bilirubin detection by test strip NEGATIVE NEGATIVE Urine urobilinogen measurement by automated test strip (mass/volume) NORMAL NORMAL Urine leukocyte esterase detection by dipstick NEGATIVE NEGATIVE Automated urine sediment erythrocyte count by microscopy (number/high power field) [HPF] NRG Automated urine sediment leukocyte count by microscopy (number/high power field ) [HPF] NRG Bacteria detection in urine sediment by light microscopy MODERATE NRG Squamous epithelial cells detection in urine sediment by light microscopy 10-25 NRG Crystals detection in urine sediment by light microscopy PRESENT NRG Casts detection in urine sediment by light microscopy NONE NRG Mucus detection in urine sediment by light microscopy SMALL NRG Complete urinalysis with reflex to culture YES NRG Amorphous sediment detection in urine sediment by light microscopy FEW ES URATES NRG Bacterial urine culture - 03/21/18 11:11 Bacterial urine culture [id number] NRG COLONY COUNT <10,000 NRG FTX;REPORTABLE PREDOMINANCE OF NRG Encounters ACCT No. Visit Date/Time Discharge Status Pt. Type Provider Facility Loc./Unit Complaint [id number] 07/16/2014 12:51:00 07/16/2014 23:59:59 CLS Outpatient ARIAN US PSYD [id number] 06/05/2014 10:16:00 06/05/2014 23:59:59 CLS Outpatient ARIAN US PSYD [id number] 05/08/2014 10:38:00 05/08/2014 23:59:59 CLS Outpatient ARIAN US PSYD [id number] 05/03/2014 15:40:00 05/03/2014 23:59:59 CLS Outpatient CATALINA MCKNIGHT APRN [id number] 04/18/2014 08:38:00 04/18/2014 23:59:59 CLS Outpatient ARIAN US PSYD [id number] 04/10/2014 10:26:00 04/10/2014 23:59:59 CLS Outpatient ARIAN US PSYD [id number] 03/20/2014 14:34:00 03/20/2014 23:59:59 CLS Outpatient BEVERLY TAO APRN [id number] 03/14/2014 16:06:00 03/14/2014 23:59:59 CLS Outpatient ARINA US PSYD [id number] 03/08/2014 08:16:00 03/08/2014 23:59:59 CLS Outpatient ARIAN US PSYD [id number] 02/20/2014 12:44:00 02/20/2014 23:59:59 CLS Outpatient JAVAD DAMON APRN [id number] 02/19/2014 15:05:00 02/19/2014 23:59:59 CLS Outpatient CATALINA MCKNIGHT APRN [id number] 02/15/2014 08:52:00 02/15/2014 23:59:59 CLS Outpatient BEVERLY TAO APRN [id number] 02/01/2014 13:41:00 02/01/2014 23:59:59 CLS Outpatient ARIAN US PSYD [id number] 01/04/2014 10:49:00 01/04/2014 23:59:59 CLS Outpatient ARIAN US PSYD [id number] 12/21/2013 10:30:00 12/21/2013 23:59:59 CLS Outpatient ARIAN US PSYD [id number] 11/30/2013 17:09:00 11/30/2013 23:59:59 CLS Outpatient BEVERLY TAO APRN S [id number] 11/21/2013 12:44:00 11/21/2013 23:59:59 CLS Outpatient NELSONJAVAD ROSS APRN [id number] 11/21/2013 12:44:00 11/21/2013 23:59:59 CLS Outpatient NELSONJAVAD ROSS APRN [id number] 11/13/2013 12:34:00 11/13/2013 23:59:59 CLS Outpatient ARIAN US PSYD [id number] 10/26/2013 12:58:00 10/26/2013 23:59:59 CLS Outpatient AISLINN LOCK SETTERBEVERLY S [id number] 10/09/2013 12:45:00 10/09/2013 23:59:59 CLS Outpatient ARIAN US PSYD [id number] 09/25/2013 13:15:00 09/25/2013 23:59:59 CLS Outpatient ARIAN US PSYD [id number] 09/11/2013 12:15:00 09/11/2013 23:59:59 CLS Outpatient AISLINN LOCK SETTERBEVERLY S [id number] 09/04/2013 12:39:00 09/04/2013 23:59:59 CLS Outpatient ARIAN US PSYD [id number] 08/22/2013 14:36:00 08/22/2013 23:59:59 CLS Outpatient LOUISE COBOS MD [id number] 08/17/2013 15:36:00 08/17/2013 23:59:59 CLS Outpatient LUCIANO WILLARD DO [id number] 08/01/2013 13:44:00 08/01/2013 23:59:59 CLS Outpatient ARIAN US PSYD [id number] 07/17/2013 10:27:00 07/17/2013 23:59:59 CLS Outpatient BEVERLY TAO APRN [id number] 07/11/2013 13:05:00 07/11/2013 23:59:59 CLS Outpatient ARIAN US PSYD [id number] 06/27/2013 13:07:00 06/27/2013 23:59:59 CLS Outpatient ARIAN US PSYD [id number] 06/21/2013 16:35:00 06/21/2013 23:59:59 CLS Outpatient ARIAN US PSYD [id number] 06/06/2013 12:44:00 06/06/2013 23:59:59 CLS Outpatient JERMAINE FERRER APRN [id number] 06/05/2013 08:29:00 06/05/2013 23:59:59 CLS Outpatient LOUISE COBOS MD [id number] 05/19/2013 12:44:00 05/19/2013 23:59:59 CLS Outpatient ARIAN US PSYD [id number] 05/05/2013 12:45:00 05/05/2013 23:59:59 CLS Outpatient ARIAN US PSYD [id number] 05/03/2013 14:18:00 05/03/2013 23:59:59 CLS Outpatient HARLEEN LOU APRN [id number] 04/25/2013 15:33:00 04/25/2013 23:59:59 CLS Outpatient HARLEEN LOU APRN [id number] 04/21/2013 12:55:00 04/21/2013 23:59:59 CLS Outpatient ARIAN US PSYD [id number] 03/28/2013 15:28:00 03/28/2013 23:59:59 CLS Outpatient BEVERLY TAO APRN [id number] 03/09/2013 15:35:00 03/09/2013 23:59:59 CLS Outpatient ROXANNA CATALINA OCONNOR [id number] 03/06/2013 13:00:00 03/06/2013 23:59:59 CLS Outpatient ARIAN US PSYD [id number] 03/02/2013 11:33:00 03/02/2013 23:59:59 CLS Outpatient JERMAINE FERRER APRN [id number] 03/02/2013 11:33:00 03/02/2013 23:59:59 CLS Outpatient CHANTELLSOURAV JERMAINE OCONNOR [id number] 01/11/2013 13:50:00 01/11/2013 23:59:59 CLS Outpatient LUCIANO WILLARD DO [id number] 01/05/2013 15:37:00 01/05/2013 23:59:59 CLS Outpatient ARIAN US PSYD [id number] 12/16/2012 10:54:00 12/16/2012 23:59:59 CLS Outpatient ARIAN US PSYD [id number] 06/21/2012 12:53:00 06/21/2012 23:59:59 CLS Outpatient [id number] 06/09/2012 12:38:00 06/09/2012 23:59:59 CLS Outpatient [id number] 05/30/2012 14:42:00 05/30/2012 23:59:59 CLS Outpatient [id number] 05/20/2012 10:48:00 05/20/2012 23:59:59 CLS Outpatient ARIAN US PSYD [id number] 05/06/2012 10:52:00 05/06/2012 23:59:59 CLS Outpatient [id number] 04/26/2012 12:48:00 04/26/2012 23:59:59 CLS Outpatient ARIAN US PSYD [id number] 04/11/2012 12:42:00 04/11/2012 23:59:59 CLS Outpatient ARIAN US PSYD [id number] 04/06/2012 13:34:00 04/06/2012 23:59:59 CLS Outpatient BEVERLY TAO APRN [id number] 03/31/2012 11:04:00 03/31/2012 23:59:59 CLS Outpatient [id number] 03/14/2012 12:46:00 03/14/2012 23:59:59 CLS Outpatient [id number] 02/29/2012 12:45:00 02/29/2012 23:59:59 CLS Outpatient [id number] 01/27/2012 10:14:02 01/27/2012 23:59:59 CLS Outpatient ARIAN US PSYD [id number] 12/08/2012 10:45:00 Document Registration [id number] 12/07/2012 09:39:00 Document Registration [id number] 12/01/2012 11:35:00 Document Registration [id number] 11/10/2012 14:46:00 Document Registration [id number] 10/29/2012 13:36:00 Document Registration [id number] 09/13/2012 09:57:00 Document Registration [id number] 09/06/2012 13:33:00 Document Registration [id number] 08/26/2012 09:17:00 Document Registration [id number] 08/08/2012 10:43:00 Document Registration [id number] 08/05/2012 14:59:00 Document Registration [id number] 07/19/2012 12:55:00 Document Registration [id number] 02/15/2016 08:36:00 Document Registration [id number] 05/28/2016 08:40:00 Document Registration [id number] 06/23/2016 20:08:00 Document Registration [id number] 03/21/2018 10:25:00 03/21/2018 12:29:00 DIS Outpatient SOCO JOAQUIN APRN [facility] ER LOW BLOOD SUGAR- 133/ NAUSEA [id number] 03/17/2018 09:20:00 03/17/2018 11:56:00 DIS Outpatient KEYONNA RICO MD [facility] ER NAUSEA,WEAKNESS [id number] 10/02/2017 09:09:00 10/02/2017 12:35:00 DIS Emergency MYAH OLIVAS MD [facility] ER DIARRHEA SINCE WEDNESDAY [id number] 09/01/2017 18:29:00 09/01/2017 18:45:00 DIS Outpatient MAR MANE DO [facility] ER TEETH/GUM PROBLEMS R SIDE [id number] 06/14/2017 21:55:00 06/14/2017 22:20:00 DIS Outpatient SOCO JOAQUIN APRN [facility] ER R SIDE BACK RASH [id number] 06/11/2017 13:20:00 06/11/2017 17:28:00 DIS Emergency ANGIE KIRKPATRICK [facility] ER VOMITING,ABD PAIN, WEAK [id number] 05/13/2017 01:26:00 05/13/2017 01:37:00 DIS Emergency LOREN GAYLE, DELMA Quintana [facility] ER LEFT EAR PAIN-BUG WAS IN EAR-HURTS [id number] 10/28/2016 08:54:00 10/28/2016 09:50:00 DIS Outpatient BEVERLY TAO [facility] REHAB BULGING DISC L3-4 L4-5 [id number] 08/14/2016 10:19:00 08/14/2016 11:53:00 DIS Emergency SOCO JOAQUIN LOCK SETTER [facility] ER BACK/LEG PAIN [id number] 06/25/2016 11:01:00 07/15/2016 09:25:00 DIS Outpatient ZEHRA SINHA MD [facility] REHAB LUMBAGO [id number] 06/02/2016 11:47:00 06/02/2016 13:30:00 DIS Emergency SOCO JOAQUIN APRN [facility] ER UPPER ABD PAIN [id number] 05/22/2016 10:19:00 05/22/2016 23:59:59 CLS Outpatient BEVERLY TAO [facility] RAD SCREENING [id number] 05/01/2016 13:15:00 05/01/2016 14:15:00 DIS Outpatient ZEHRA SINHA MD [facility] REHAB LUMBAGO [id number] 03/20/2016 08:18:00 03/20/2016 09:14:00 DIS Outpatient ZEHRA SINHA MD [facility] CARD M51.16 [id number] 2016 15:06:00 2016 16:06:00 DIS Emergency SOCO JOAQUIN APRN [facility] ER SHOULDER PAIN [id number] 12/04/2015 11:00:00 12/04/2015 23:59:59 CLS Outpatient ZEHRA SINHA MD [facility] RAD LOW BACK PAIN [id number] 11/12/2015 14:29:00 11/12/2015 16:16:00 DIS Emergency ANGIE KIRKPATRICK [facility] ER BACK PAIN [id number] 08/23/2015 10:08:00 08/23/2015 11:46:00 DIS Outpatient ZEHRA SINHA MD [facility] CARD DISC DISORDER [id number] 06/06/2015 20:35:00 06/06/2015 21:53:00 DIS Emergency ANGIE KIRKPATRICK [facility] ER POSSIBLE ALLERGIC REACTION [id number] 05/15/2015 10:07:00 05/15/2015 23:59:59 CLS Outpatient BEVERLY TAO [facility] RAD [id number] 10/13/2014 19:11:00 10/13/2014 19:59:00 DIS Emergency TYREE HENNESSY MD [facility] ER [id number] 09/19/2014 13:26:00 09/19/2014 14:05:00 DIS Outpatient DELMA DUFFY [facility] REHAB BACK PAIN/ RADICULOPATHY [id number] 05/15/2014 09:00:00 05/15/2014 23:59:59 CLS Outpatient CATALINA MCKNIGHT LOCK SETTER [facility] RAD [id number] 03/17/2014 11:29:00 03/17/2014 14:40:00 DIS Emergency DELMA PIMENTEL MD [facility] ER [id number] 01/15/2014 14:12:00 01/15/2014 23:59:59 CLS Outpatient ZEHRA SINHA MD [facility] CARD [id number] 12/18/2013 14:14:00 12/18/2013 15:11:00 DIS Outpatient ZEHRA SINHA MD [facility] CARD [id number] 11/20/2013 13:10:00 11/20/2013 23:59:59 CLS Outpatient ZEHRA SINHA MD [facility] CARD [id number] 10/28/2013 11:22:00 10/28/2013 11:58:00 DIS Emergency SOCO JOAQUIN LOCK SETTER [facility] ER [id number] 09/25/2013 08:55:00 09/25/2013 23:59:59 CLS Outpatient BEVERLY TAO [employer]ARM [employer]ILITY MANAGER [facility] RAD [id number] 08/28/2013 08:04:00 08/28/2013 23:59:59 CLS Outpatient DERRELL MEAD Yisel FARM FACILITY MANAGER [facility] RAD [id number] 07/12/2013 13:45:00 07/12/2013 14:38:00 DIS Emergency SOCO JOAQUIN LOCK SETTER [facility] ER [id number] 03/28/2013 12:43:00 03/28/2013 23:59:59 CLS Outpatient CHONG HORTON FARM FACILITY MANAGER [facility] RAD RT BREAST PAIN [id number] 09/15/2012 12:06:00 09/15/2012 15:15:00 DIS Emergency MATTHEW GAYLE, BERNY Mendoza [facility] ER LEFT LEG/FOOT PAIN [id number] 04/07/2012 14:25:00 Document Registration [id number] 01/25/2012 12:35:00 Document Registration [id number] 06/10/2011 14:07:00 Document Registration [id number] 06/05/2011 09:06:00 Document Registration [id number] 04/15/2011 21:55:00 Document Registration [id number] 07/09/2010 21:31:00 Document Registration [id number] 06/09/2018 14:00:00 06/09/2018 23:59:59 CLS Outpatient BEVERLY TAO APRN [facility] [id number] 12/08/2017 09:00:00 Document Registration [id number] 10/14/2014 02:08:31 ACT Document Registration
== END 2018-06-14 15:17 | disposition home or self-care (01) ==
LOC: EDUNIT# 13:58 → ER 14:01
DX: J40 Bronchitis, not specified as acute or chronic (principal); E78.00 Pure hypercholesterolemia, unspecified; G43.909 Migraine, unspecified, not intractable, without status migrainosus; K52.9 Noninfective gastroenteritis and colitis, unspecified; E11.9 Type 2 diabetes mellitus without complications; F41.9 Anxiety disorder, unspecified; F31.9 Bipolar disorder, unspecified; F60.9 Personality disorder, unspecified; Z82.49 Family history of ischemic heart disease and other diseases of the circulatory system; Z87.19 Personal history of other diseases of the digestive system; Z88.8 Allergy status to other drugs, medicaments and biological substances; Z88.1 Allergy status to other antibiotic agents; Z79.82 Long term (current) use of aspirin; Z79.4 Long term (current) use of insulin; Z98.890 Other specified postprocedural states
CPT/HCPCS: 99282

== ENCOUNTER → 2018-07-08 | Outpatient (CLI) | payer OTHER ==
[~2018-07-08] MED LIST changes: +ACET-789 PO; +PSEU120T17 PO
--- NOTE | 2018-07-11 10:46 | Diagnostic Imaging Report ---
INDICATION: Routine screening. Comparison is made with prior mammogram from 05/22/2016 and 05/15/2015. 2-D and 3-D bilateral screening mammography was performed with a Computer Aided Detection (CAD) system. FINDINGS: Scattered fibroglandular densities are identified bilaterally. A benign-appearing nodule in the posterior right breast appear stable and suggestive of an intramammary lymph node. Occasional benign-appearing calcifications are noted bilaterally. No spiculated mass or malignant appearing microcalcifications are seen. Axillae are unremarkable. IMPRESSION: No mammographic features suspicious for malignancy are identified. ACR BI-RADS Category 2: Benign findings. Result letter will be mailed to the patient. Note: At least 10% of breast cancer is not imaged by mammography. Dictated by: Dictated on workstation # [id number]
== END ==
LOC: RAD 15:24
PROVIDERS: ATTEND Nurse Practitioner Primary Care
DX: Z12.31 Encounter for screening mammogram for malignant neoplasm of breast (principal)
CPT/HCPCS: 77067

== ENCOUNTER 2019-01-21 17:01 | Emergency (ER) | payer SELFPAY ==
[~2019-01-21] VITALS: Ht 157 cm; Wt 90.7 kg
[2019-01-21 17:43] LABS: BILIRUBIN,URINE NEGATIVE (NEGATIVE); CLARITY,URINE SLIGHTLY CLOUDY; COLOR,URINE YELLOW; GLUCOSE, URINE (UA) 4+ (NEGATIVE); KETONES,URINE NEGATIVE (NEGATIVE); LEUKOCYTE ESTERASE ,URINE 1+ (NEGATIVE); NITRITE,URINE NEGATIVE (NEGATIVE); PH,URINE 5 (5-9); PROTEIN,URINE NEGATIVE (NEGATIVE)
[2019-01-21] MEDS ORDERED: inSUlin (REGULAR) HUMAN 1 UNIT/0.01 ML (CHARGE PER UNIT) IV ONE (17:45)
[2019-01-21] MEDS ORDERED: NS IV 1000 ML 1,000 ML IV SCH (17:45)
[2019-01-21 17:47] LABS: BACTERIA,URINE FEW /HPF
[2019-01-21 17:52] LABS: BASOPHILS # (AUTO) 0.1 10^3/uL (0.0-0.1); BASOPHILS % (AUTO) 1 % (0-10); EOSINOPHILS # (AUTO) 0.1 10^3/uL (0.0-0.3); EOSINOPHILS % (AUTO) 1 % (0-10); HEMATOCRIT 42 % (35-52); HEMOGLOBIN 14.2 G/DL (11.5-16.0); LYMPHOCYTES # (AUTO) 2.6 X 10^3 (1.0-4.0); LYMPHOCYTES % (AUTO) 28 % (12-44); MEAN CORPUSCULAR HEMOGLOBIN 28 PG (25-34); MEAN CORPUSCULAR HGB CONC 34 G/DL (32-36); MEAN CORPUSCULAR VOLUME 84 FL (80-99); MEAN PLATELET VOLUME 9.8 FL (7.4-10.4); MONOCYTES # (AUTO) 0.5 X 10^3 (0.0-1.0); MONOCYTES % (AUTO) 6 % (0-12); NEUTROPHILS % (AUTO) 64 % (42-75); PLATELET COUNT 291 10^3/uL (130-400); RED CELL DISTRIBUTION WIDTH 13.1 % (10.0-14.5); WHITE BLOOD COUNT 9.3 10^3/uL (4.3-11.0)
--- NOTE | 2019-01-21 17:53 | ED General ---
General Chief Complaint: Glucose Problems Stated Complaint: HIGH BLOOD SUGAR Nursing Triage Note: PT AMBULATE TO TRIAGE WITH C/O HIGH BLOOD GLUCOSE. PT STATES SHE TOOK BG AT HOME AND METER READ "HIGH". PT STATES SHE RECHECKED BG AND METER READ 531. Nursing Sepsis Screen: No Definite Risk Source of Information: Patient Exam Limitations: No Limitations History of Present Illness Date Seen by Provider: Jan 21, 2019 Time Seen by Provider: 17:47 Initial Comments To ER with reports of high blood sugar. She checked this at home and it was found to be in the 530 range. She states that she's recently been ill with sore throat runny nose cough and she is on an antibiotic and Coricidin HBP. She is not on prednisone and she does not have any fevers or chills. She states that she took 120 units of NovoLog a 440 Timing/Duration: 1-2 Days Severity: Moderate Allergies and Home Medications Allergies Coded Allergies: azithromycin (Unverified Allergy, Unknown, 10/28/13) CHEST PAIN prednisone (Unverified Adverse Reaction, Unknown, RAISES BLOOD SUGAR, 10/28/13) Home Medications Acetaminophen with Codeine 1 Each Tablet, 1 EACH PO Q4H PRN for COUGH Prescribed by: SOCO JOAQUIN on 06/14/18 1513 Aspirin 81 Mg Tabec, 81 MG PO DAILY, (Reported) Cefuroxime Axetil 250 Mg Tablet, 250 MG PO BID Prescribed by: SOCO JOAQUIN on 03/21/18 1215 Cefuroxime Axetil 250 Mg Tablet, 250 MG PO BID Prescribed by: SOCO JOAQUIN on 01/21/19 1847 Citalopram Hydrobromide 20 Mg Tablet, 1 EACH PO BID, (Reported) Hum Insulin Nph/Reg Insulin Hm 10 Ml Vial, 110 UNITS SQ BID, (Reported) Lamotrigine 150 Mg Tablet, 150 MG PO DAILY, (Reported) Lidocaine HCl 15 Ml Solution, 15 ML MM Q 1-2 HOURS Prescribed by: MAR MANE on 09/01/171836 Liraglutide 0.6 Mg/0.1 Ml Pen.injctr, 1.8 MG SC HS, (Reported) Losartan Potassium 25 Mg Tablet, 1 EACH PO BID, (Reported) Metronidazole 500 Mg Tablet, 500 MG PO BID, (Reported) Naproxen 500 Mg Tablet, 500 MG PO BID Prescribed by: MAR MANE on 6/6/18 1837 Ondansetron 8 Mg Tab.rapdis, 8 MG PO Q6H PRN for NAUSEA/VOMITING-1ST LINE Prescribed by: ANGIE MAS on 06/11/17 1703 Ondansetron 4 Mg Tab.rapdis, 4 MG PO Q6H PRN for NAUSEA/VOMITING Prescribed by: MYAH OLIVAS on 10/02/17 1215 Ondansetron 4 Mg Tab.rapdis, 4 MG PO Q6H PRN for NAUSEA/VOMITING Prescribed by: KEYONNA RICO on 03/17/18 1149 Phenazopyridine HCl 100 Mg Tablet, 100 MG PO Q8H PRN for pain Prescribed by: ANGIE MAS on 06/11/17 1703 Pioglitazone Hcl 45 Mg Tablet, 45 MG PO DAILY, (Reported) Promethazine HCl 25 Mg Tablet, 25 MG PO Q6H PRN for NAUSEA/VOMITING Prescribed by: SOCO JOAQUIN on 03/21/18 1138 Pseudoephedrine HCl 120 Mg Tablet.er, 120 MG PO BID PRN for CONGESTION Prescribed by: SOCO JOAQUIN on 06/14/18 1513 Simvastatin 40 Mg Tablet, 2 TAB PO DAILY, (Reported) Triamcinolone Acet 15 Gm Cr, 15 GM TP BID Prescribed by: SOCO JOAQUIN on 06/14/17 2211 Patient Home Medication List Home Medication List Reviewed: Yes Review of Systems Review of Systems Constitutional: see HPI EENTM: see HPI Respiratory: see HPI, cough Cardiovascular: no symptoms reported Genitourinary: no symptoms reported Musculoskeletal: no symptoms reported Skin: no symptoms reported Psychiatric/Neurological: No Symptoms Reported Hematologic/Lymphatic: No Symptoms Reported Past Uuveusl-Zhemkp-Ovikls Hx Patient Social History Alcohol Use: Denies Use Recreational Drug Use: No Smoking Status: Never a Smoker 2nd Hand Smoke Exposure: No Recent Foreign Travel: No Contact w/Someone Who Travel: No Recent Infectious Disease Expo: No Recent Hopitalizations: No Physical Abuse: No Sexual Abuse: No Mistreated: No Fear: No Immunizations Up To Date Tetanus Booster (TDap): More than 5yrs PED Vaccines UTD: Yes Date of Pneumonia Vaccine: Mar 29, 2008 Date of Influenza Vaccine: Dec 28, 2016 Seasonal Allergies Seasonal Allergies: Yes Past Medical History Surgeries: Yes (LARRY CARPAL TUNNEL, HERNIA REPAIR, BACK SURGERY 2014; DENTAL EXTRACTIONS) Section, Orthopedic Respiratory: No Cardiac: Yes High Cholesterol Neurological: Yes Headaches /Migraines Reproductive Disorders: No Sexually Transmitted Disease: No HIV/AIDS: No Gastrointestinal: Yes Abdominal Hernia, Irritable Bowel Musculoskeletal: Yes Arthritis, Chronic Back Pain Endocrine: Yes (Type II, 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, Non-Insulin dep HEENT: Yes (DENTAL ISSUSES/EXTRACTIONS) Cancer: No Psychosocial: Yes Anxiety, Bipolar, Personality Disorder, Depression Integumentary: No Blood Disorders: No Adverse Reaction/Blood Tranf: No Family Medical History Alcoholism 19 FATHER Arthritis 19 MOTHER Cataracts 19 MOTHER Diabetes mellitus 19 FATHER 19 MOTHER FH: stroke 19 FATHER Hypercholesterolemia 19 MOTHER Hypertension 19 MOTHER No Family History of: Cardiovascular disease Glaucoma Osteoporosis Prostate cancer No Pertinent Family Hx Physical Exam Vital Signs Vital Signs - First Documented 01/21/19 17:16 Temp 37.1 Pulse 114 Resp 18 B/P (MAP) 129/72 (91) O2 Delivery Room Air Capillary Refill : Less Than 3 Seconds Height, Weight, BMI Height: 5'2.00" Weight: 179lbs. 0oz. 81.141056vr; 36.00 BMI Method:Stated General Appearance: No Apparent Distress, WD/WN Eyes: Bilateral Eye Normal Inspection, Bilateral Eye PERRL, Bilateral Eye EOMI Neck: Full Range of Motion, Normal Inspection Respiratory: Normal Breath Sounds, No Accessory Muscle Use, No Respiratory Distress Cardiovascular: Regular Rate, Rhythm, Normal Peripheral Pulses Gastrointestinal: Normal Bowel Sounds, Non Tender, Soft Extremity: Normal Capillary Refill, Normal Inspection Neurologic/Psychiatric: Alert, Oriented x3, No Motor/Sensory Deficits Skin: Normal Color, Warm/Dry Progress/Results/Core Measures Suspected Sepsis Recent Fever Within 48 Hours: No Infection Criteria Present: None New/Unexplained Altered Menta: No Sepsis Screen: No Definite Risk SIRS Temperature: Pulse: 114 Respiratory Rate: 18 Laboratory Tests 01/21/19 17:47: White Blood Count 9.3 Blood Pressure 129 /72 Mean: 91 Laboratory Tests 01/21/19 17:47: Creatinine 0.73, Platelet Count 291, Total Bilirubin 0.3 Results/Orders Lab Results Laboratory Tests Test 01/21/19 17:38 01/21/19 17:47 Range/Units Urine Color YELLOW Urine Clarity SLIGHTLY CLOUDY Urine pH 5 5-9 Urine Specific [place] 1.015 L 1.016-1.022 Urine Protein NEGATIVE NEGATIVE Urine Glucose (UA) 4+ H NEGATIVE Urine Ketones NEGATIVE NEGATIVE Urine Nitrite NEGATIVE NEGATIVE Urine Bilirubin NEGATIVE NEGATIVE Urine Urobilinogen NORMAL NORMAL MG/DL Urine Leukocyte Esterase 1+ H NEGATIVE Urine RBC (Auto) 1+ H NEGATIVE Urine RBC NONE /HPF Urine WBC 10-25 H /HPF Urine Squamous Epithelial Cells 5-10 /HPF Urine Crystals NONE /LPF Urine Bacteria FEW H /HPF Urine Casts NONE /LPF Urine Mucus NEGATIVE /LPF Urine Culture Indicated YES White Blood Count 9.3 4.3-11.0 10^3/uL Red Blood Count 5.01 4.35-5.85 10^6/uL Hemoglobin 14.2 11.5-16.0 G/DL Hematocrit 42 35-52 % Mean Corpuscular Volume 84 80-99 FL Mean Corpuscular Hemoglobin 28 25-34 PG Mean Corpuscular Hemoglobin Concent 34 32-36 G/DL Red Cell Distribution Width 13.1 10.0-14.5 % Platelet Count 291 130-400 10^3/uL Mean Platelet Volume 9.8 7.4-10.4 FL Neutrophils (%) (Auto) 64 42-75 % Lymphocytes (%) (Auto) 28 12-44 % Monocytes (%) (Auto) 6 0-12 % Eosinophils (%) (Auto) 1 0-10 % Basophils (%) (Auto) 1 0-10 % Neutrophils # (Auto) 6.0 1.8-7.8 X 10^3 Lymphocytes # (Auto) 2.6 1.0-4.0 X 10^3 Monocytes # (Auto) 0.5 0.0-1.0 X 10^3 Eosinophils # (Auto) 0.1 0.0-0.3 10^3/uL Basophils # (Auto) 0.1 0.0-0.1 10^3/uL Sodium Level 139 135-145 MMOL/L Potassium Level 3.8 3.6-5.0 MMOL/L Chloride Level 103 98-107 MMOL/L Carbon Dioxide Level 18 L 21-32 MMOL/L Anion Gap 18 H 5-14 MMOL/L Blood Urea Nitrogen 11 7-18 MG/DL Creatinine 0.73 0.60-1.30 MG/DL Estimat Glomerular Filtration Rate > 60 BUN/Creatinine Ratio 15 Glucose Level 343 H 70-105 MG/DL Calcium Level 10.3 H 8.5-10.1 MG/DL Corrected Calcium 10.1 8.5-10.1 MG/DL Total Bilirubin 0.3 0.1-1.0 MG/DL Aspartate Amino Transf (AST/SGOT) 15 5-34 U/L Alanine Aminotransferase (ALT/SGPT) 21 0-55 U/L Alkaline Phosphatase 88 40-136 U/L Total Protein 8.0 6.4-8.2 GM/DL Albumin 4.2 3.2-4.5 GM/DL Beta-Hydroxybutyrate (Chem panel) 0.11 0.00-0.27 MMOL/L My Orders Orders - SOCO JOAQUIN APRN Cbc With Automated Diff (01/21/19 17:31) Comprehensive Metabolic Panel (01/21/19 17:31) Ua Culture If Indicated (01/21/19 17:31) Beta Hydroxybutyrate (01/21/19 17:31) Ed Iv/Invasive Line Start (01/21/19 17:31) Accucheck Stat ONCE (01/21/19 17:31) Ns Iv 1000 Ml (Sodium Chloride 0.9%) (01/21/19 17:45) Insulin (Regular) Human (Humulin R (Per (01/21/19 17:45) Urine Culture (01/21/19 17:38) Ceftriaxone For Iv Use (Rocephin For I (01/21/19 18:00) Medications Given in ED Current Medications Medications Dose Ordered Sig/Ernesto Route Start Time Stop Time Status Last Admin Dose Admin Ceftriaxone Sodium 1000 mg/ Sterile Water 10 ml @ 200 mls/hr ONCE ONCE IV 01/21/19 18:00 01/21/19 18:02 DC 01/21/19 18:03 200 MLS/HR Insulin Human Regular 8 unit ONCE ONCE IV 01/21/19 17:45 01/21/19 17:46 DC 01/21/19 17:56 8 UNIT Vital Signs/I&O 01/21/19 17:16 Temp 37.1 Pulse 114 Resp 18 B/P (MAP) 129/72 (91) O2 Delivery Room Air Capillary Refill : Less Than 3 Seconds Blood Pressure Mean: 91 Departure Communication (Admissions) 1851-blood sugar 131 patient feels better we will discharge to home. Impression Primary Impression: Hyperglycemia Additional Impression: Urinary tract infection Qualified Codes: N30.00 - Acute cystitis without hematuria Disposition: HOME, SELF-CARE Condition: Stable Departure-Patient Inst. Decision time for Depature: 18:46 Referrals: [facility] (PCP/Family) Primary Care Physician Patient Instructions: Urinary Tract Infection, Adult (DC) Add. Discharge Instructions: 1. Antibiotic as directed 2. Return to ER for any concerns 3. All discharge instructions reviewed with patient and/or family. Voiced understanding. Scripts Cefuroxime Axetil (Cefuroxime) 250 Mg Tablet 250 MG PO BID, #10 TAB Prov: SOCO JOAQUIN APRN 01/21/19 SOCO JOAQUIN APRN Jan 21, 2019 17:53
[2019-01-21] MEDS ORDERED: cefTRIAXone FOR IV USE 1,000 MG in WATER (STERILE) FOR INJECTION 10 ML IV ONE (18:00)
[2019-01-21 18:11] LABS: ALANINE AMINOTRANSFERASE 21 U/L (0-55); ALBUMIN 4.2 GM/DL (3.2-4.5); ALKALINE PHOSPHATASE 88 U/L (40-136); BILIRUBIN,TOTAL 0.3 MG/DL (0.1-1.0); BUN/CREATININE RATIO 15; CALCIUM 10.3 MG/DL (8.5-10.1); CARBON DIOXIDE 18 MMOL/L (21-32); CHLORIDE 103 MMOL/L (98-107); CREATININE SERUM 0.73 MG/DL (0.60-1.30); GFR ESTIMATED > 60; GLUCOSE 343 MG/DL (70-105); POTASSIUM 3.8 MMOL/L (3.6-5.0); SODIUM 139 MMOL/L (135-145)
[2019-01-21] MEDS ORDERED: CEFU250T80 PO (18:47)
[2019-01-21 18:59] VITALS: BP 161/92
== END 2019-01-21 18:57 | disposition home or self-care (01) ==
LOC: EDUNIT# 17:01 → ER 17:02
DX: E11.65 Type 2 diabetes mellitus with hyperglycemia (principal); N39.0 Urinary tract infection, site not specified; E78.00 Pure hypercholesterolemia, unspecified; G43.909 Migraine, unspecified, not intractable, without status migrainosus; K58.9 Irritable bowel syndrome, unspecified; F41.9 Anxiety disorder, unspecified; F31.9 Bipolar disorder, unspecified; F60.9 Personality disorder, unspecified; Z88.1 Allergy status to other antibiotic agents; Z88.8 Allergy status to other drugs, medicaments and biological substances; Z79.82 Long term (current) use of aspirin; Z79.4 Long term (current) use of insulin; Z82.49 Family history of ischemic heart disease and other diseases of the circulatory system
CPT/HCPCS: 36415; 80053; 81000; 82010; 82962; 85025; 87088; 96361; 96374; 96375

== ENCOUNTER 2019-03-26 13:22 | Emergency (ER) | payer SELFPAY ==
[~2019-03-26] VITALS: Ht 157 cm; Wt 95.3 kg
--- NOTE | 2019-03-26 14:25 | ED Cough/URI ---
General Chief Complaint: Cough/Cold/Flu Symptoms Stated Complaint: COUGH/CONGESTION/DIARRHEA Nursing Triage Note: COUGH AND CONGESTION FOR A FEW DAYS ALONG WITH SOME DIARRHEA. Sepsis Screen: No Definite Risk Source: patient Exam Limitations: no limitations History of Present Illness Date Seen by Provider: Mar 26, 2019 Time Seen by Provider: 14:25 Initial Comments 44-year-old female patient presents with complaints of cough, chest congestion, nasal congestion, rhinorrhea, and mild diarrhea beginning one week ago. Patient states she was seen at [facility] by Shanelle Ivory a few days ago, but denies any test being done or any medications being given. Denies fever or chills. She does have history of asthma and states she has felt short of air intermittently. Denies any current shortness of air or wheezing. Timing/Duration: week Severity/Quality: dry cough Prior Episodes/Possible Cause: occasional episodes Modifying Factors: Worse With Coughing Allergies and Home Medications Allergies Coded Allergies: azithromycin (Unverified Allergy, Unknown, 10/28/13) CHEST PAIN prednisone (Unverified Adverse Reaction, Unknown, RAISES BLOOD SUGAR, 10/28) Home Medications Albuterol Sulfate 18 Gm Hfa.aer.ad, 1-2 PUFF INH QID PRN for WHEEZING Prescribed by: ANGIE MAS on 03/26/19 1537 Azithromycin 250 Mg Tablet, 250 MG PO UD TAKE 2 TABLETS TODAY, THEN TAKE 1 TABLET DAILY FOR 4 MORE DAYS Prescribed by: ANGIE MAS on 03/26/19 1535 Benzonatate 100 Mg Capsule, 200 MG PO TID PRN for COUGH Prescribed by: ANGIE MAS on 03/26/19 1535 Citalopram Hydrobromide 20 Mg Tablet, 1 EACH PO BID, (Reported) Hum Insulin Nph/Reg Insulin Hm 10 Ml Vial, 110 UNITS SQ BID, (Reported) Lamotrigine 150 Mg Tablet, 150 MG PO DAILY, (Reported) Liraglutide 0.6 Mg/0.1 Ml Pen.injctr, 1.8 MG SC HS, (Reported) Losartan Potassium 25 Mg Tablet, 1 EACH PO BID, (Reported) Simvastatin 40 Mg Tablet, 2 TAB PO DAILY, (Reported) Patient Home Medication List Home Medication List Reviewed: Yes Review of Systems Review of Systems Constitutional: No chills, No diaphoresis, No dizziness, No fever; malaise EENTM: nose congestion, throat pain, other (ears feel plugged up and sounds are muffled occasionally.); No ear discharge, No ear pain, No hoarseness, No nose pain, No throat swelling Respiratory: see HPI, cough; No dyspnea on exertion, No hemoptysis, No orthopnea, No phlegm, No short of breath (denies current SOA. see HPI), No stridor, No wheezing Cardiovascular: No chest pain, No edema, No palpitations, No syncope Gastrointestinal: No abdominal pain, No constipation; diarrhea; No hematemesis, No melena, No nausea, No vomiting Genitourinary: no symptoms reported Musculoskeletal: no symptoms reported Skin: no symptoms reported Psychiatric/Neurological: No Symptoms Reported All Other Systems Reviewed Negative Unless Noted: Yes (Negative excepted noted.) Past Eleypht-Huoqgq-Bneesl Hx Past Med/Social Hx: Reviewed Nursing Past Med/Soc Hx Patient Social History Alcohol Use: Denies Use Recreational Drug Use: No Smoking Status: Never a Smoker 2nd Hand Smoke Exposure: No Recent Foreign Travel: No Contact w/Someone Who Travel: No Recent Infectious Disease Expo: No Recent Hopitalizations: No Immunizations Up To Date Tetanus Booster (TDap): More than 5yrs PED Vaccines UTD: Yes Date of Pneumonia Vaccine: Mar 29, 2008 Date of Influenza Vaccine: Dec 28, 2016 Seasonal Allergies Seasonal Allergies: Yes Past Medical History Surgeries: Yes (LARRY CARPAL TUNNEL, HERNIA REPAIR, BACK SURGERY 2014; DENTAL EXTRACTIONS) Section, Orthopedic Respiratory: Yes Asthma (h/o asthma) Cardiac: Yes High Cholesterol Neurological: Yes Headaches /Migraines Reproductive Disorders: No Sexually Transmitted Disease: No HIV/AIDS: No Gastrointestinal: Yes Abdominal Hernia, Irritable Bowel Musculoskeletal: Yes Arthritis, Chronic Back Pain Endocrine: Yes (Type II, 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, Non-Insulin dep HEENT: Yes (DENTAL ISSUSES/EXTRACTIONS) Cancer: No Psychosocial: Yes Anxiety, Bipolar, Personality Disorder, Depression Integumentary: No Blood Disorders: No Adverse Reaction/Blood Tranf: No Family Medical History Reviewed Nursing Family Hx Alcoholism 19 FATHER Arthritis 19 MOTHER Cataracts 19 MOTHER Diabetes mellitus 19 FATHER 19 MOTHER FH: stroke 19 FATHER Hypercholesterolemia 19 MOTHER Hypertension 19 MOTHER No Family History of: Cardiovascular disease Glaucoma Osteoporosis Prostate cancer No Pertinent Family Hx Physical Exam Vital Signs - First Documented 03/26/19 13:25 Temp 36.8 Pulse 108 Resp 16 B/P (MAP) 159/88 (111) Pulse Ox 96 O2 Delivery Room Air Capillary Refill : Less Than 3 Seconds Height: 5'2.00" Weight: 179lbs. 0oz. [id number]; 38.00 BMI Method:Stated General Appearance: WD/WN, no apparent distress HEENT: PERRL/EOMI, pharyngeal erythema (pharyngeal erythema noted without exudates, swelling, or ulcerations.), other (air fluid levels noted to the bilat TM's without erythema, loss of landmarks, bulging, or retractions. (+) Nasal congestion and rhinorrhea.) Neck: non-tender, full range of motion, supple, normal inspection Respiratory: lungs clear, normal breath sounds, no respiratory distress, no accessory muscle use Cardiovascular: normal peripheral pulses, regular rate, rhythm, no edema, no gallop, no murmur Gastrointestinal: normal bowel sounds, non tender, soft, no organomegaly; No distended Extremities: no pedal edema, no calf tenderness, normal capillary refill Neurologic/Psychiatric: alert, normal mood/affect, oriented x 3 Skin: normal color, warm/dry Progress/Results/Core Measures Suspected Sepsis Recent Fever Within 48 Hours: No Infection Criteria Present: Suspected New Infection New/Unexplained Altered Menta: No Sepsis Screen: No Definite Risk SIRS Temperature: Pulse: 108 Respiratory Rate: 16 Blood Pressure 159 /88 Mean: 111 Results/Orders Micro Results Microbiology 03/26/19 Influenza Types A,B Antigen (EDILBERTO) - Final, Complete My Orders Orders - ANGIE MAS Acetaminophen Tablet (Tylenol Tablet) (03/26/19 14:34) Chest Pa/Lat (2 View) (03/26/19 14:34) Influenza A And B Antigens (03/26/19 14:34) Benzonatate Capsule (Tessalon Perles) (03/26/19 14:45) Guaifenesin Tablet (Mucinex Tablet) (03/26/19 14:45) Medications Given in ED Current Medications Medications Dose Ordered Sig/Ernesto Route Start Time Stop Time Status Last Admin Dose Admin Benzonatate 100 mg ONCE ONCE PO 03/26/19 14:45 03/26/19 14:46 DC 03/26/19 14:42 100 MG Guaifenesin 600 mg ONCE ONCE PO 03/26/19 14:45 03/26/19 14:46 DC 03/26/19 15:08 600 MG Vital Signs/I&O 03/26/19 03/26/19 13:25 15:47 Temp 36.8 36.8 Pulse 108 108 Resp 16 16 B/P (MAP) 159/88 (111) 159/88 (111) Pulse Ox 96 96 O2 Delivery Room Air Capillary Refill : Less Than 3 Seconds Blood Pressure Mean: 111 Diagnostic Imaging Diagonstic Imaging: Xray Plain Films/CT/US/NM/MRI: chest Comments Date of Exam:03/26/19 CHEST PA/LAT (2 VIEW) INDICATION: Cough and congestion. EXAMINATION: PA and lateral views of the chest. FINDINGS: Lungs are well-aerated and clear. Heart is not enlarged. No pulmonary edema or hilar adenopathy. No pneumothorax or pleural effusion. No bony abnormalities. IMPRESSION: Normal PA and lateral chest. Dictated on workstation # [id number] Reviewed: Reviewed by Me (radiology report reviewed by me) Departure Communication (Admissions) Patient seen and evaluated. Chest x-ray and influenza test obtained which were negative. Patient was given Tessalon Perles, Tylenol, and Mucinex with improvement in symptoms. Plan for discharge to home with follow-up as an outpatient with her primary care provider. Patient to return for worsened symptoms or any other concerns. Impression Primary Impression: Upper respiratory infection Qualified Codes: J06.9 - Acute upper respiratory infection, unspecified Additional Impression: Diarrhea Qualified Codes: R19.7 - Diarrhea, unspecified Disposition: 01 HOME, SELF-CARE Condition: Improved Departure-Patient Inst. Decision time for Depature: 15:33 Referrals: [facility] [place] Primary Care Physician Patient Instructions: Acute Bronchitis, Adult (DC) Add. Discharge Instructions: All discharge instructions reviewed with patient and/or family. Voiced understanding. Medications as instructed. Tylenol or Motrin owot-nah-ledvbnh as directed for pain or fever. Drink plenty of fluids. Rest. Pccu-czk-ujhbgpt Afrin nasal spray, saline nasal spray, and antihistamines as needed for symptomatic relief. Utoo-shz-pytmcub Mucinex for chest congestion as needed. Follow-up with your primary care provider this week for recheck, call Wednesday for appointment time. Return in the emergency department for worsened symptoms or any other concerns. Scripts Albuterol Sulfate (Ventolin Hfa) 18 Gm Hfa.aer.ad 1-2 PUFF INH QID PRN for WHEEZING, #1 EA 0 Refills Prov: ANGIE MAS 03/26/19 Azithromycin (Zithromax) 250 Mg Tablet 250 MG PO UD, #6 TAB 0 Refills TAKE 2 TABLETS TODAY, THEN TAKE 1 TABLET DAILY FOR 4 MORE DAYS Prov: ANGIE MAS 03/26/19 Benzonatate (TESSALON PERLES) 100 Mg Capsule 200 MG PO TID PRN for COUGH, #30 CAP 0 Refills Prov: ANGIE MAS 03/26/19 ANGIE MAS Mar 26, 2019 14:25
[2019-03-26] MEDS ORDERED: ACETAMINOPHEN 500 MG TAB (TYLENOL) PO STA (14:34)
--- NOTE | 2019-03-26 14:44 | NUR ---
PHARMACY NOTIFIED OF NEEDING MEDICATIONS.
[2019-03-26] MEDS ORDERED: guaiFENesin (MUCINEX) 600 MG TAB PO ONE (14:45)
[2019-03-26] MEDS ORDERED: BENZONATATE 100 MG (TESSALON) CAPSULE PO ONE (14:45)
--- NOTE | 2019-03-26 15:24 | Diagnostic Imaging Report ---
INDICATION: Cough and congestion. EXAMINATION: PA and lateral views of the chest. FINDINGS: Lungs are well-aerated and clear. Heart is not enlarged. No pulmonary edema or hilar adenopathy. No pneumothorax or pleural effusion. No bony abnormalities. IMPRESSION: Normal PA and lateral chest. Dictated by: Dictated on workstation # [id number]
[2019-03-26] MEDS ORDERED: BENZ100C18 PO (15:35)
[2019-03-26] MEDS ORDERED: AZIT250T PO (15:35)
[2019-03-26] MEDS ORDERED: ALBU18HF2 INH (15:37)
[2019-03-26 15:47] VITALS: BP 159/88
== END 2019-03-26 15:47 | disposition home or self-care (01) ==
LOC: EDUNIT# 13:22 → ER 13:23
DX: J06.9 Acute upper respiratory infection, unspecified (principal); R19.7 Diarrhea, unspecified; J45.909 Unspecified asthma, uncomplicated; E11.9 Type 2 diabetes mellitus without complications; E78.00 Pure hypercholesterolemia, unspecified; F41.9 Anxiety disorder, unspecified; F31.9 Bipolar disorder, unspecified; F60.9 Personality disorder, unspecified; G43.909 Migraine, unspecified, not intractable, without status migrainosus; K58.9 Irritable bowel syndrome, unspecified; Z88.8 Allergy status to other drugs, medicaments and biological substances; Z79.4 Long term (current) use of insulin; Z82.49 Family history of ischemic heart disease and other diseases of the circulatory system
CPT/HCPCS: 71046; 87804

== ENCOUNTER 2019-06-22 18:06 | Emergency (ER) | payer SELFPAY ==
[~2019-06-22] VITALS: Ht 157 cm; Wt 91.0 kg
[~2019-06-22 18:06] MED LIST changes: +ALBU18HF2 INH; +AZIT250T PO; +BENZ100C18 PO; -LIDO15SO2 MM; +LIDO20SO23 MM; +SIMV40TA25 PO; -SIMV40TA4 PO
[2019-06-22] MEDS ORDERED: NS IV 1000 ML 1,000 ML IV SCH (18:15)
[2019-06-22] MEDS ORDERED: ONDANSETRON 4 MG/2 ML (SDV) Z0FRAN IVP ONE (18:15)
[2019-06-22] MEDS ORDERED: DULA1.5P2 SQ (18:23)
[2019-06-22 18:24] LABS: BASOPHILS % (AUTO) 0 % (0-10); EOSINOPHILS # (AUTO) 0.1 10^3/uL (0.0-0.3); EOSINOPHILS % (AUTO) 1 % (0-10); HEMATOCRIT 45 % (35-52); HEMOGLOBIN 15.5 G/DL (11.5-16.0); LYMPHOCYTES # (AUTO) 2.1 X 10^3 (1.0-4.0); LYMPHOCYTES % (AUTO) 20 % (12-44); MEAN CORPUSCULAR HEMOGLOBIN 29 PG (25-34); MEAN CORPUSCULAR HGB CONC 35 G/DL (32-36); MEAN CORPUSCULAR VOLUME 82 FL (80-99); MEAN PLATELET VOLUME 9.9 FL (7.4-10.4); MONOCYTES # (AUTO) 0.8 X 10^3 (0.0-1.0); MONOCYTES % (AUTO) 8 % (0-12); NEUTROPHILS # (AUTO) 7.9 X 10^3 (1.8-7.8); NEUTROPHILS % (AUTO) 72 % (42-75); PLATELET COUNT 297 10^3/uL (130-400); RED CELL DISTRIBUTION WIDTH 14.2 % (10.0-14.5); WHITE BLOOD COUNT 10.9 10^3/uL (4.3-11.0)
--- NOTE | 2019-06-22 18:24 | ED GI ---
General Chief Complaint: Abdominal/GI Problems Stated Complaint: N//V, DIARRHEA Nursing Triage Note: PT CO OF N/V/D SINCE YESTERDAY, WAS SEEN AT [facility] YESTERDAY. GIVEN ZOFRAN Sepsis Screen: No Definite Risk Source of Information: Patient Exam Limitations: No Limitations History of Present Illness Date Seen by Provider: Jun 22, 2019 Time Seen by Provider: 18:21 Initial Comments To ER with reports of nausea vomiting diarrhea for the past 3 days. She is diabetic. Sugars of the little high around 290 today she said. She saw [facility] yesterday and was given a prescription for Zofran and Levsin. Despite her most recent dose of Zofran at 4 PM she is still nauseous. She's also had diarrhea. Location: Epigastric Radiation: No Radiation Activities at Onset: None Allergies and Home Medications Allergies Coded Allergies: azithromycin (Unverified Allergy, Unknown, 10/28/13) CHEST PAIN prednisone (Unverified Adverse Reaction, Unknown, RAISES BLOOD SUGAR, 10/28/13) Home Medications Albuterol Sulfate 18 Gm Hfa.aer.ad, 1-2 PUFF INH QID PRN for WHEEZING Prescribed by: ANGIE MAS on 03/26/19 1537 Citalopram Hydrobromide 20 Mg Tablet, 1 EACH PO BID, (Reported) Dulaglutide 1.5 Mg/0.5 Ml Pen.injctr, 1.5 MG SQ WEEK, (Reported) Hum Insulin Nph/Reg Insulin Hm 10 Ml Vial, 110 UNITS SQ BID, (Reported) Lamotrigine 150 Mg Tablet, 300 MG PO DAILY, (Reported) Lorazepam 1 Mg Tablet, 1 MG SL DAILY PRN PRN for ANXIETY, (Reported) Losartan Potassium 25 Mg Tablet, 1 EACH PO BID, (Reported) Simvastatin 40 Mg Tablet, 2 TAB PO DAILY, (Reported) Patient Home Medication List Home Medication List Reviewed: Yes Review of Systems Review of Systems Constitutional: see HPI; No chills, No fever EENTM: No Symptoms Reported Respiratory: No Symptoms Reported, See HPI; Denies Cough Cardiovascular: No Symptoms Reported Gastrointestinal: See HPI, Diarrhea, Nausea Genitourinary: No Symptoms Reported Musculoskeletal: no symptoms reported Skin: no symptoms reported Psychiatric/Neurological: No Symptoms Reported Endocrine: No Symptoms Reported Hematologic/Lymphatic: No Symptoms Reported Past Uhvgxep-Kdrppb-Xtiprx Hx Patient Social History 2nd Hand Smoke Exposure: No Recent Foreign Travel: No Contact w/Someone Who Travel: No Recent Infectious Disease Expo: No Recent Hopitalizations: No Immunizations Up To Date Tetanus Booster (TDap): More than 5yrs PED Vaccines UTD: Yes Date of Pneumonia Vaccine: Mar 29, 2008 Date of Influenza Vaccine: Dec 28, 2016 Seasonal Allergies Seasonal Allergies: Yes Past Medical History Surgeries: Yes (LARRY CARPAL TUNNEL, HERNIA REPAIR, BACK SURGERY 2014; DENTAL EXTRACTIONS) Section, Orthopedic Respiratory: Yes Asthma Cardiac: Yes High Cholesterol Neurological: Yes Headaches /Migraines Reproductive Disorders: No Sexually Transmitted Disease: No HIV/AIDS: No Gastrointestinal: Yes Abdominal Hernia, Irritable Bowel Musculoskeletal: Yes Arthritis, Chronic Back Pain Endocrine: Yes (Type II, 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, Non-Insulin dep HEENT: Yes (DENTAL ISSUSES/EXTRACTIONS) Cancer: No Psychosocial: Yes Anxiety, Bipolar, Personality Disorder, Depression Integumentary: No Blood Disorders: No Adverse Reaction/Blood Tranf: No Family Medical History Alcoholism 19 FATHER Arthritis 19 MOTHER Cataracts 19 MOTHER Diabetes mellitus 19 FATHER 19 MOTHER FH: stroke 19 FATHER Hypercholesterolemia 19 MOTHER Hypertension 19 MOTHER No Family History of: Cardiovascular disease Glaucoma Osteoporosis Prostate cancer No Pertinent Family Hx Physical Exam Vital Signs Vital Signs - First Documented 06/22/19 18:10 Temp 36.6 Pulse 112 Resp 20 B/P (MAP) 150/72 (98) Pulse Ox 96 Capillary Refill : Less Than 3 Seconds Height/Weight/BMI Height: 5'2.00" Weight: 179lbs. 0oz. 81.442427wf; 36.00 BMI Method:Stated General Appearance: WD/WN, obese Neck: non-tender, full range of motion Respiratory: normal breath sounds, no respiratory distress, no accessory muscle use Cardiovascular: regular rate, rhythm, no murmur Gastrointestinal: normal bowel sounds, soft Extremities: normal range of motion, non-tender Neurologic/Psychiatric: alert, normal mood/affect, oriented x 3 Skin: normal color, warm/dry Progress/Results/Core Measures Results/Orders Lab Results Laboratory Tests Test 06/22/19 18:17 Range/Units White Blood Count 10.9 4.3-11.0 10^3/uL Red Blood Count 5.44 4.35-5.85 10^6/uL Hemoglobin 15.5 11.5-16.0 G/DL Hematocrit 45 35-52 % Mean Corpuscular Volume 82 80-99 FL Mean Corpuscular Hemoglobin 29 25-34 PG Mean Corpuscular Hemoglobin Concent 35 32-36 G/DL Red Cell Distribution Width 14.2 10.0-14.5 % Platelet Count 297 130-400 10^3/uL Mean Platelet Volume 9.9 7.4-10.4 FL Neutrophils (%) (Auto) 72 42-75 % Lymphocytes (%) (Auto) 20 12-44 % Monocytes (%) (Auto) 8 0-12 % Eosinophils (%) (Auto) 1 0-10 % Basophils (%) (Auto) 0 0-10 % Neutrophils # (Auto) 7.9 H 1.8-7.8 X 10^3 Lymphocytes # (Auto) 2.1 1.0-4.0 X 10^3 Monocytes # (Auto) 0.8 0.0-1.0 X 10^3 Eosinophils # (Auto) 0.1 0.0-0.3 10^3/uL Basophils # (Auto) 0.0 0.0-0.1 10^3/uL My Orders Orders - SOCO JOAQUIN MISCELLANEOUS MACHINE OPERATOR Cbc With Automated Diff (06/22/19 18:10) Comprehensive Metabolic Panel (06/22/19 18:10) Ua Culture If Indicated (06/22/19 18:10) Ed Iv/Invasive Line Start (06/22/19 18:10) Ns Iv 1000 Ml (Sodium Chloride 0.9%) (06/22/19 18:15) Ondansetron Injection (Zofran Injectio (06/22/19 18:15) Lipase (06/22/19 18:19) Promethazine Injection (Phenergan Injec (06/22/19 18:30) Vital Signs/I&O 06/22/19 18:10 Temp 36.6 Pulse 112 Resp 20 B/P (MAP) 150/72 (98) Pulse Ox 96 Blood Pressure Mean: 98 Departure Impression Primary Impression: Nausea and vomiting Qualified Codes: R11.2 - Nausea with vomiting, unspecified Disposition: 01 HOME, SELF-CARE Condition: Stable Departure-Patient Inst. Decision time for Depature: 18:29 Referrals: [facility] (PCP) Primary Care Physician BEVERLY TAO (Family) Primary Care Physician Patient Instructions: Nausea and Vomiting, Adult Add. Discharge Instructions: 1. Plenty of fluids 2. Nausea medication as directed 3. Follow-up with your doctor next week 4. All discharge instructions reviewed with patient and/or family. Voiced un derstanding. Scripts Promethazine HCl (Promethazine Tablet) 25 Mg Tablet 25 MG PO TID PRN for NAUSEA/VOMITING, #10 TAB Prov: SOCO JOAQUIN APRN 06/22/19 SOCO JOAQUIN APRN Jun 22, 2019 18:24
[2019-06-22] MEDS ORDERED: LORA-405 SL (18:25)
[2019-06-22] MEDS ORDERED: PROMETHAZINE INJ 25 MG/ML (PHENERGAN) AMP IVP ONE (18:30)
[2019-06-22] MEDS ORDERED: PROM25TA14 PO (18:31)
[2019-06-22 18:39] LABS: CLARITY,URINE CLEAR; COLOR,URINE YELLOW; GLUCOSE, URINE (UA) TRACE (NEGATIVE); KETONES,URINE 3+ (NEGATIVE); LEUKOCYTE ESTERASE ,URINE 1+ (NEGATIVE); NITRITE,URINE NEGATIVE (NEGATIVE); PROTEIN,URINE 2+ (NEGATIVE)
[2019-06-22 18:44] LABS: ALANINE AMINOTRANSFERASE 25 U/L (0-55); ALBUMIN 4.4 GM/DL (3.2-4.5); ALKALINE PHOSPHATASE 83 U/L (40-136); BILIRUBIN,TOTAL 0.5 MG/DL (0.1-1.0); BUN/CREATININE RATIO 13; CALCIUM 9.8 MG/DL (8.5-10.1); CARBON DIOXIDE 17 MMOL/L (21-32); CHLORIDE 101 MMOL/L (98-107); CREATININE SERUM 0.72 MG/DL (0.60-1.30); GFR ESTIMATED > 60; GLUCOSE 307 MG/DL (70-105); LIPASE 18 U/L (8-78); POTASSIUM 3.7 MMOL/L (3.6-5.0); SODIUM 136 MMOL/L (135-145); TOTAL PROTEIN 8.1 GM/DL (6.4-8.2)
[2019-06-22 18:48] LABS: BACTERIA,URINE TRACE /HPF; BILIRUBIN,URINE 1+ (NEGATIVE); HYALINE CASTS, URINE RARE /LPF; RBC,URINE 0-2 /HPF; SQUAMOUS EPITHELIAL CELL,UR 0-2 /HPF
[2019-06-22] MEDS ORDERED: cefTRIAXone FOR IV USE 1,000 MG in WATER (STERILE) FOR INJECTION 10 ML IV ONE (19:15)
[2019-06-22 19:21] VITALS: BP 139/77
--- OUTSIDE RECORDS SUMMARY | 2019-06-22 19:32 | XMS REPORT ---
Author Author [employer]. Organization [employer] Address [address] [address] Care Team Providers Care Hearth Feeder Name Role Phone JALEESA LEONG Unavailable Unavailable ARIAN US Unavailable Unavailable AISLINN, BEVERLY Unavailable Unavailable LEONCIO MCELROY Unavailable Unavailable [facility] Unavailable AISLINN, BEVERLY Unavailable JAGJIT BEE Unavailable Unavailable LOUISE COBOS Unavailable LUCIANO WILLARD Unavailable [facility] Unavailable [phone] GEGE CALDWELL Unavailable Unavailable JAVAD DAMON Unavailable Unavailable DELMA CHAU Unavailable [facility] Unavailable [facility] Unavailable AISLINN, BEVERLY Unavailable LEONCIO Tuttle Unavailable LOUISE COBOS Unavailable ARIAN US Unavailable JALEESA Enriquez Unavailable AISLINN, BEVERLY Unavailable AISLINN, BEVERLY Unavailable AISLINN, BEVERLY Unavailable ARIAN US Unavailable ARIAN US Unavailable AISLINN, BEVERLY Unavailable AISLINN, BEVERLY Unavailable AISLINN, BEVERLY Unavailable [facility] Unavailable [phone] ARIAN US Unavailable ANGLETON, STEPHEN Unavailable ARIAN US ANN Unavailable AISLINN, BEVERLY Unavailable AISLINN, BEVERLY Unavailable AISLINN, BEVERLY Unavailable AISLINN, BEVERLY Unavailable ARIAN US ANN Unavailable AISLINN, BEVERLY Unavailable ARIAN US ANN Unavailable ARIAN US ANN Unavailable AISLINN, BEVERLY Unavailable ANGLETON, STEPHEN Unavailable AISLINN, BEVERLY Unavailable AISLINN, BEVERLY Unavailable ARIAN US Unavailable AISLINN, BEVERLY Unavailable ARIAN US ANN Unavailable ARIAN US Unavailable ARIAN US Unavailable ARIAN US Unavailable AISLINN, BEVERLY Unavailable AISLINN, BEVERLY Unavailable ARIAN US Unavailable ANGLETON STEPHEN Unavailable AISLINN, BEVERLY Unavailable AISLINN, BEVERLY Unavailable ANGLETON STEPHEN Unavailable LOUISE COBOS Unavailable ARIAN US Unavailable SOCO JOAQUIN APRN Unavailable Unavailable ZEHRA SHEEHAN MD Unavailable Unavailable AISLINN, BEVERLY Unavailable AISLINN, BEVERLY Unavailable ARIAN US Unavailable ARIAN US Unavailable AISLINN, BEVERLY Unavailable ARIAN US Unavailable STEPHEN CROOK Unavailable AISLINN, BEVERLY Unavailable AISLINN, BEVERLY Unavailable AISLINN, BEVERLY Unavailable ARIAN US Unavailable CHONG HORTON Unavailable Unavailable KANDI DILLARD, DELMA Fair Unavailable Unavailable IGGY DILLARD, ANGIE Dawson Unavailable Unavailable MATTHEW GAYLE, BERNY Mendoza Unavailable Unavailable ARIAN US Unavailable AISLINN, BEVERLY Unavailable AISLINN, BEVERLY Unavailable AISLINN, BEVERLY Unavailable [facility] Unavailable [facility] PCP Migration, Doctor Unavailable Unavailable Migration, Doctor Unavailable Unavailable Migration, Doctor Unavailable Unavailable AISLINN, BEVERLY S Unavailable Unavailable Migration, Doctor Unavailable Unavailable Migration, Doctor Unavailable Unavailable ARIAN US Unavailable AISLINN, BEVERLY COMPUTER SYSTEMS DESIGN ANALYST Unavailable Unavailable Migration, Doctor Unavailable Unavailable Migration, Doctor Unavailable Unavailable Migration, Doctor Unavailable Unavailable Migration, Doctor Unavailable Unavailable JACKY GAYLE, KEYONNA Morillo Unavailable Unavailable Migration, Doctor Unavailable Unavailable ARIAN US Unavailable zzHEIMWOJCIECH, CATALINA Unavailable Migration, Doctor Unavailable Unavailable ARIAN US Unavailable zJAVAD Drake Unavailable zzHEIMAN, CATALINA Unavailable AISLINN, BEVERLY Unavailable AISLINN, BEVERLY Unavailable ARIAN US Unavailable TAPAN KRAMER Unavailable ARIAN US Unavailable ARIAN US Unavailable AISLINN, BEVERLY Unavailable AISLINN, BEVERLY Unavailable AISLINN, BEVERLY Unavailable AISLINN, BEVERLY Unavailable AISLINN, BEVERLY Unavailable AISLINN, BEVERLY Unavailable ARIAN US Unavailable ARIAN US Unavailable AISLINN, BEVERLY Unavailable AISLINN, BEVERLY Unavailable ARIAN US Unavailable ARIAN US Unavailable ARIAN US Unavailable AISLINN, BEVERLY Unavailable AISLINN, BEVERLY Unavailable AISLINN, BEVERLY Unavailable SOCO JOAQUIN APRN Unavailable Unavailable JACKY GAYLE, KEYONNA Morillo Unavailable Unavailable BRENDON GAYLE, MYAH Matthews Unavailable Unavailable IGGY DILLARD, ANGIE Dawson Unavailable Unavailable ARIAN US Unavailable ARIAN US Unavailable AISLINN, BEVERLY Unavailable AISLINN, BEVERLY Unavailable ARIAN US Unavailable Unavailable Unavailable JAVAD Holguin Unavailable AISLINN, BEVERLY Unavailable ARIAN US Unavailable ARIAN US Unavailable AISLINN, BEVERLY Unavailable ARIAN US Unavailable Migration, Doctor Unavailable Unavailable AISLINN, EBVERLY Unavailable AISLINN, BEVERLY Unavailable ARIAN US Unavailable AISLINN, BEVERLY Unavailable AISLINN, BEVERLY Unavailable AISLINN, BEVERLY Unavailable Migration, Doctor Unavailable Unavailable ARIAN US Unavailable ARIAN US Unavailable AISLINN, BEVERLY Unavailable AISLINN, BEVERLY Unavailable HARLEEN LOU Unavailable ARIAN US Unavailable AISLINN, BEVERLY Unavailable AISLINN, BEVERLY Unavailable AISLINN, BEVERLY Unavailable Migration, Doctor Unavailable Unavailable AISLINN, BEVERLY Unavailable ARIAN US Unavailable CATALINA Perlaes Unavailable AISLINN, BEVERLY Unavailable Allergies The data below is from unstructured sourcesNo Known Allergies No Known Allergies No Known Allergies No Known Allergies No Known Allergies No Known Allergies No Known Allergies No Known Allergies No Known Allergies No Known Allergies No Known Allergies No Known Allergies No Known Allergies No Known Allergies No Known Allergies No Known Allergies No Known Allergies No Known Allergies No Known Allergies No Known Allergies No Known Allergies No Known Allergies No Known Allergies No Known Allergies No Known Allergies No Known Allergies No Known Allergies No Known Allergies No Known Allergies No Known Allergies No Known Allergies No Known Allergies No Known Allergies No Known Allergies No Known Allergies No Known Allergies No Known Allergies No Known Allergies No Known Allergies No Known Allergies No Known Allergies No Known Allergies No Known Allergies No Known Allergies No Known Allergies No Known Allergies No Known Allergies No Known Allergies No Known Allergies No Known Allergies No Known Allergies No Known Allergies No Known Allergies Unknown Allergies Unknown Allergies Unknown Allergies Unknown Allergies No Information No Information No Information No Information No Information No Information No Information No Information No Information No Information No Information No Information No Information No Information No Information No Information No Information No Information No Information No Information No Information No Information No Information No Information No Information No Information No Information No Information No Information No Information No Information No Information No Information No Information No Information No Information No Information No Information No Information No Information No Information No Information No Information No Information No Information No Information No Information No Information No Information No Information No Information No Information No Information No Information No Information No Information No Information No Information No Information No Information No Information No Information No Information No Information No Information No Information No Information No Information No Information No Information No Information No Information No Information No Information No Information No Information No Information No Information No Information No Information No Information No Information No Information No Information No Information No Information No Information No Information No Information No Information No Information No Information No Information No Information No Information No Information No Information No Information No Information No Information No Information No Information No Information No Information No Information No Information No Information No Information No Information No Information No Information No Information No Information No Information No Information No Information No Information No Information No Information No Information No Information No Information No Information No Information No Information No Information No Information No Information No Information No Information No Information No Information No Information No Information No Information No Information No Information No Information No Information No Information No Information No Information No Information No Information No Information No Information No Information No Information No Information No Information No Information No Information No Information No Information No Information No Information No Information No Information No Information No Information No Information No Information No Information No Information No Information No Information No Information No Information No Information No Information No Information No Information No Information No Information No Information No Information No Information No Information No Information No Information No Information No Information No Information No Information No Information No Information No Information No Information No Information No Information No Information No Information No Information No Information No Information No Information No Information No Information No Information No Information Medications Current Medications Medication Ingredient Drug Dose Dates Status Sig Sig Care Class(es) (Normalized) (Original) Provid er acetaminoph acetaminoph Nonsteroida Active no Migraine no en 250 mg / en / l information Relief name aspirin 250 aspirin / Anti-inflam 250-250-65 (no mg / caffeine matory MG Orally phone) caffeine 65 Translation Drug, Once a day 2 mg oral s: [ Central tablets 24h tablet (4 Migraine Nervous Active sources.) Relief System 250-250-65 Stimulant, MG, Methylxanth Migraine ine Relief 250-250-65 MG] no Aspirin no 81 mg Active no Aspirin no information Adult Low information information Adult Low name (1 source.) Strength 81 Strength 81 (no MG MG Orally phone) Once a day 1 tablet 24h Active sugar-free Cholestyram Bile Acid 13945 02-29-20 Active no Q uestran no cholestyram ine Resin Sequestrant mg 18 information Light 4 name ine resin Translation GM/DOSE (no 4000 mg s: [ Orally Twice phone) powder for Questran a day 1 oral Light 4 scoop 12h 03 suspension GM/DOSE] Feb, 2018 30 (2 day(s) sources.) Active fenofibrate Fenofibrate Peroxisome 160 mg 12-18-19 Active no Fenofibrate no 160 mg oral Translation Proliferato 18 information 160 MG name tablet (2 s: [ r Receptor Orally Once (no sources.) Fenofibrate alpha a day 1 phone) 160 MG] Agonist tablet with food 24h Nov, 105 days Active melatonin 5 melatonin no 5 mg Active no Melatonin 5 no mg oral Translation information information MG Orally name tablet (5 s: [ Once a day 1 (no sources.) Melatonin 5 tablet at phone) MG, bedtime as Melatonin 5 needed with MG] food 24h Active 5 mg Active no Melatoni no name inform n 5 MG (no ation Orally phone) Once a day 1 tablet at bedtime as needed with food 24h Active 24 hr metFORMIN Biguanide 500 mg 12-16-19 Active no MetFORM IN no metFORMIN Translation 18 information HCl ER 500 name hydrochlori s: [ MG 1 tab (no de 500 mg Metformin with evening phone) extended HCl 1000 meal x 7 day release MG, 24 HR then 1 tab oral tablet Metformin bid with (7 hydrochlori meals x 7 sources.) de 500 MG then 1 tab Extended at AM meal Release and 2 tabs Oral at PM meal x Tablet, 7 then 2 tab MetFORMIN BID @ meals HCl ER 500 Nov, MG] 30 days Active 1000 mg 12-06-2017 Active no Metformi no name inform n HCl (no ation 1000 mg phone) Orally twice a day 1 tablet with a meal 12h Nov, Active 1000 mg 12-06-2017 Active no Metformi no name inform n HCl (no ation 1000 MG phone) Orally twice a day 1 tablet with a meal 12h Nov, 90 days Active no Migraine no Active no Migraine no information Relief information information Relief name (1 source.) 250-250-65 250-250-65 (no MG MG Orally phone) Once a day 2 tablets 24h Active no NovoFine no 08-21-19 Active no NovoFine 32G no information 32G X 6 MM information 18 information X 6 MM name (4 Translation subcutaneous (no sources.) s: [ ly 3 times a phone) NovoFine day as 32G X 6 MM, directed for NovoFine use with 32G X 6 MM] Victoza and Novolog Pens 8h July, 90 days Active no NovoLog Mix no 120 Active take 120 NovoLog Mix no information information [IU] [IU] by rose marie menon (1 source.) Flexpen subcutaneous Flexpen (no (30) 100 injection (30) 100 phone) UNIT/ML twice daily UNIT/ML Subcutaneous 2 times a day Inject 120 units 12h Active Completed/Discontinued Medications Medication Ingredient Drug Dose Dates Status Sig Sig Care Class(es) (Normalized) (Original) Provid er acetaminoph Acetaminoph Opioid 06-15-19 Complete take 1 Acetamin ophe Peter en 300 mg / en / Agonist 19 d tablet by n With J Apr n codeine Codeine mouth every Codeine Joaquin phosphate four hours (Tylenol (no 30 mg oral as needed With Codeine phone) tablet (1 for cough #3 Tablet) 1 source.) Each Tablet 1 Each ORAL Every 4HRS as needed for Cough 10 Tab 06/14/18 amoxicillin amoxicillin Penicillin- 09-02-19 Complete no Fowler xicillin/ Jennifer K 875 mg / / class 18 - d information Potassium Gambrills clavulanate clavulanate Antibacteri 10-03-19 Clav (no 125 mg oral al 18 (Augmentin phone) tablet (6 875-125 sources.) Tablet) 1 Each Tablet, 1 Each Oral Twice A Day for Infection 09/01/17 Discontinued Active no Augmenti no name inform n Orally (no ation every 12 phone) hrs 1 tablet 12h Active lidocaine lidocaine Antiarrhyth 20 09-02-19 Complete no Lidocaine Jennifer K hydrochlori annemarie, Amide mg/mL 18 d information Hcl Gambrills de 20 mg/ml Local (Lidocaine (no mucous Anesthetic Hcl Viscous) phone) membrane 15 Ml topical Solution 15 solution (5 Ml sources.) SUBMUCOSAL Q 1-2 Hours for Pain 1 Each 09/01/17 ondansetron ondansetron Serotonin-3 4 mg 10-03-19 Complete take 1 Ondansetron Timoth 4 mg Translation Receptor 18 d tablet by (Ondansetron y D disintegrat s: [ Antagonist mouth every Odt) 4 Mg Stebb i ing oral Ondansetron six hours as Tab.rapdis 4 ns (no tablet (12 4 MG needed for Mg ORAL phone) sources.) Disintegrat nausea Every 6 ing Oral Hours as Tablet] needed for Nausea/Vomit ing 8 Tab 03/17/18 8 mg 06-11-2017 Completed take 1 Ondanset Angie tablet aleksandra Eunice Iggy by (Ondanse (no mouth ajay phone) every Odt) 8 six Mg hours Tab.rapd as is 8 Mg needed ORAL for Every 6 nausea Hours as needed for Nausea/V omiting- 1ST Line 10 Tab 06/11/17 phenazopyri phenazopyri no 100 mg 06-12-19 Complete take 1 P henazopyrid Gretch dine dine information 18 d tablet by ine Hcl en L hydrochlori mouth every (Pyridium) Iggy de 100 mg eight hours 100 Mg (no oral tablet as needed Tablet 100 phone) (5 for pain Mg ORAL sources.) Every 8HRS as needed for Pain 14 Tab 06/11/17 promethazin Promethazin Phenothiazi 25 mg 03-21-20 Complete take 1 Promethazine Waqas ne 18 d tablet by Hcl J Granulizing Machine Operator hydrochlori mouth every (Promethazin Joaquin de 25 mg six hours as e Tablet) 25 (no oral tablet needed for Mg Tablet 25 phone) (2 nausea Mg ORAL sources.) Every 6 Hours as needed for Nausea/Vomit ing 14 Tab 03/21/18 no Pseudoephed no 120 mg 06-15-19 Complete take 1 Pseudo ephedr Soco information rine Hcl information 19 d tablet by ine Hcl J Granulizing Machine Operator (1 source.) (Sudafed 12 mouth twice (Sudafed 12 Joaquin Hour) 120 daily as Hour) 120 Mg (no Mg needed for Tablet.er phone) Tablet.er congestion 120 Mg ORAL Twice A Day as needed for Congestion 10 Tab 06/14/18 triamcinolo triamcinolo Corticoster 15 06-15-19 Complete appl y 15 g Triamcinolon Soco rabago ne oid mg/mL 18 d topically e Acet J Ap rn acetonide 1 twice daily (Triamcinolo Joaquin mg/ml ne Acetonide (no topical 0.1% Cream) phone) cream (5 15 Gm Cr 15 sources.) Gm TOPICAL Twice A Day 1 Tube 03/19/18 Problems Active Problems Problem Normalized Date of Normalized Normalized Provider Fac ility Classification Problem(s) Problem Problem Problem Sta tus Onset/Resoluti Duration on Other Care involving Episodic Active DELMA SWEET , No t Available aftercare (3 other physical PA (57323) sources.) therapy Other lower Cough 06-07-2019 - Episodic Active SOCO JOAQUIN Not Available respiratory (64564) disease (5 sources.) Residual Family history 06-07-2019 - Episodic Active DELMA Not Available codes; of ischemic LOREN , (15849) unclassified heart disease MD (11 sources.) and other diseases of the circulatory system Other Hypomagnesemia Chronic Active [facility] nutritional; [facility] endocrine; and [facility] metabolic (24362) disorders (3 sources.) Other 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 without Hospital - (3 sources.) diarrhea [place] (61652) Other correction Episodic Active SCOO JOAQUIN Not Availa ble aftercare (27 (current) use (16447) sources.) of aspirin 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 DELMA Not Available aftercare (23 (current) use LOREN , (66271) sources.) of insulin MD Translations: [ - preschool substitute teacher current use of insulin Z79.4, preschool substitute teacher current use of insulin, correction current use of insulin, - correction current use of insulin Z79.4, - Insulin long-term use Z79.4] Other preschool substitute teacher Episodic Active no name no informati on aftercare (3 (current) use sources.) of systemic steroids Sprains and Low back Episodic Active [facility] strains (3 strain [facility] Ada sources.) [address] [place] [address] ([address]) Abdominal pain Lower Episodic Active SOCO HYLTONES Not Av ailable (25 sources.) abdominal (64366) pain, unspecified Translations: [ EPIGASTRIC PAIN, - Abdominal pain R10.9, RIGHT UPPER QUADRANT PAIN, - Generalized abdominal pain R10.84, ABDOMINAL PAIN, GENERALIZED, ABDOMINAL PAIN, EPIGASTRIC, - Epigastric abdominal pain R10.13] Nonmalignant Mastodynia Episodic Active BEVERLY AISLINN Not Available breast (82960) conditions (5 sources.) Noninfectious Noninfective Episodic Active SOCO JOAQUIN Not Available gastroenteriti gastroenteriti (18259) s (3 sources.) s and colitis, unspecified Other ear and Otalgia, left Episodic Active DELMA Not Available sense organ ear BRUEGGEMANN , (24649) disorders (13 MD sources.) Other nervous Other chronic Chronic [facility] [address] [facility] disorders (20 Translations: of [place] sources.) [ - Other [place] (87821) chronic pain G89.29, - Chronic pain G89.29, - Other chronic pain G89.29, - Chronic pain G89.29] Other Other long Episodic Active ZEHRA SHEEHAN , Not Av ailable aftercare (24 term (current) (56978) sources.) drug therapy Other Pain in left Episodic Active SOCO JOAQUIN Not Pam ilable non-traumatic hip (78283) joint disorders (5 sources.) Other Pain in left Episodic Active SOCO JOAQUIN Not Pam ilable connective leg (97385) tissue disease (9 sources.) Other nervous Paresthesia of Episodic Active SOCO JOAQUIN N ot Available system skin (68324) disorders (5 sources.) Other Personal Episodic Active DELMA Not Available gastrointestin history of LOREN , (64119) al disorders other diseases (22 sources.) of the digestive system Phlebitis; Personal Episodic Active BERNY CASTRO Not Avai lable thrombophlebit history of , (41014) is and venous thromboembolis thrombosis and m (3 sources.) embolism Personality Personality 06-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 KEYONNA Not Available disorders (13 disorder, MD JACKY (85084) sources.) unspecified Complications Postoperative Episodic Active [facility] of surgical seroma [facility] procedures or [id number] [place] [address] medical care (04461) (3 sources.) Other skin Rash and other Episodic Active no name no inf ormation disorders (3 nonspecific sources.) skin eruption Asthma (2 Unspecified 06-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 ANGIE V [facility] Via sources.) asthma, GILMA MAS [facility] (12924) Intestinal Viral Episodic Active MYAH BRENDON Not Avail able infection (1 intestinal (51575) source.) infection, unspecified Past or Other Problems Problem Normalized Date of Normalized Normalized Provider Fac ility Classification Problem(s) Problem Problem Problem Sta tus Onset/Resoluti Duration on Unclassified - Myalgia no information no information BEVERLY CADET [facility] (2 sources.) M79.10 [address] [facility] Translations: of [facility] [ - Myalgia [place] (35721) M79.10] Other liver Hepatomegaly Episodic Completed BEVERLY TAO No t Available diseases (2 (89618) sources.) Other correction no information no information SOCO JOAQUIN Not Available aftercare (16 (current) use (63477) sources.) of oral hypoglycemic drugs NEGATED Other no information no information JENNIFER ANTONIETTA , DO Not Available no specified (12109) information (3 disorders of sources.) teeth and supporting structures Disorders of Pure no information no information DELMA Not Available lipid hypercholester LOREN , (56977) metabolism (20 MD soco sources.) unspecified Procedures Procedure Normalized Procedure Procedure Result Performer Facility Date 12-08-2017 Blood count complete no information no name (no mary ne) [facility] Health auto&auto difrntl wbc [facility] ([id number]) 12-08-2017 Comprehensive no information no name (no phone) [facility] metabolic panel [facility] ([id number]) 03-07-2018 Hemoglobin no information no name (no phone) Comm [facility] glycosylated a1c [facility] ([id number]) 09-16-2017 Hemoglobin no information no name (no phone) Comm [facility] glycosylated a1c [facility] ([id number]) 12-08-2017 Lipid panel no information no name (no phone) Comm [facility] ([id number]) 06-01-2018 Psychotherapy no information no name (no phone) Co [facility] Health w/patient 30 minutes [facility] ([id number]) 12-16-2017 Psychotherapy no information no name (no phone) [facility] w[facility]patient 30 minutes [facility] ([id number]) 12-07-2017 Psychotherapy no information no name (no phone) [facility] w/patient 30 minutes [facility] ([id number]) 11-10-2017 Psychotherapy no information no name (no phone) [facility] w/patient 30 minutes [facility] ([id number]) 10-27-2017 Psychotherapy no information no name (no phone) [facility] w[facility]patient 30 minutes [facility] ([id number]) 09-15-2017 Psychotherapy no information no name (no phone) [facility] w/patient 30 minutes [facility] ([id number]) 09-01-2017 Psychotherapy no information no name (no phone) [facility] w/patient 30 minutes [facility] ([id number]) 08-04-2017 Psychotherapy no information no name (no phone) [facility] w/patient 30 minutes [facility] ([id number]) 07-13-2017 Psychotherapy no information no name (no phone) [facility] w/patient 30 minutes [facility] ([id number]) 07-09-2017 Psychotherapy no information no name (no phone) [facility] w/patient 30 minutes [facility] ([id number]) 07-02-2017 Psychotherapy no information no name (no phone) [facility] w/patient 30 minutes [facility] ([id number]) 02-08-2018 Psychotherapy no information no name (no phone) Co [facility] w/patient 45 minutes [facility] ([id number]) 02-28-2018 Urnls dip stick/tablet no information no name (no p fatuma) [facility] rgnt auto w/o [facility] ([id number]) Immunizations Normalized Immunization Date Notes Care Provider Facili ty Immunization influenza, 02-28-2018 no information BEVERLY TAO [id number] [facility] injectable, [facility] [place] ([address]) preservative free influenza, seasonal, 12-29-2018 no information no name [facility] (28406) influenza, seasonal, 02-28-2018 - no information no name [facility] injectable 02-28-2018 [facility] (19393) tetanus toxoid, 06-09-2018 no information no name [facility] reduced diphtheria [facility] toxoid, [facility] acellular pertussis (15360) vaccine, adsorbed no information 02-28-2018 no information BEVERLY TAO [id number] [facility] (04283) Results Test Name Value Interpretation Reference Range Date Time Fa cility (Normalized) (Normalized) (Medline Reference) ua long dip (in house) on null Glucose Test 2+ (no code) [facility] h strip mass conc Center of (U) [facility] (15623) Protein mass no information (no code) 0 - 20 mg/dL [facility] conc (U) [facility] (17339) UA LONG DIP (IN 10/26/2018 (no code) [facility] [place] [facility] (40948) UA LONG DIP (IN clear (no code) [facility] [place] [facility] (31209) UA LONG DIP (IN yellow (no code) [facility] [place] [facility] (36478) UA LONG DIP (IN none (no code) [facility] [place] [facility] (21146) UA LONG DIP (IN 1+ (no code) [facility] [place] [facility] (68265) UA LONG DIP (IN 842186 (no code) [facility] [place] [facility] (33913) UA LONG DIP (IN 5.0 (no code) [facility] [place] [facility] (19221) UA LONG DIP (IN 1.015 (no code) [facility] (05154) UA LONG DIP (IN 0.2 (no code) [facility] (96256) UA LONG DIP (IN 42156E (no code) [facility] [place] [facility] (35004) UA LONG DIP (IN 02/2018 (no code) [facility] [place] [facility] (27221) a1c (in house) on null Hemoglobin 12.6 % (no code) 0 - 5.7 % [facility] A1c/Hemoglobin.t [facility] fraction (Bld) (30829) Hemoglobin 11.5 % (no code) 0 - 5.7 % [facility] A1c/Hemoglobin.t [facility] fraction (Bld) (98445) Hemoglobin 13.1 % (no code) 0 - 5.7 % [facility] A1c/Hemoglobin.t [facility] fraction (Bld) (48039) A1C (IN HOUSE) 0856 (no code) [facility] (30497) A1C (IN HOUSE) 05/2019 (no code) [facility] (04926) A1C (IN HOUSE) 0932 (no code) [facility] (63178) A1C (IN HOUSE) 11/2019 (no code) [facility] (70335) No panel information on null Exp date 05/2020 (no code) [facility] (66994) Lot [id number] (no code) [facility] (42318) No panel information on 2019-05-15 Exp date 10/2020 (no code) [facility] (29086) Lot 11.5~[phone] (no code) [facility] Healt [facility] (49843) No panel information on 2019-02-06 BLO no information (no code) [facility] (49841) Exp date 10/2020 (no code) [facility] (77411) KET 02/2019~clear~da (no code) [facility]~none~2+~1 [facility] +~1+ (47401) SAMANTHA neg~neg (no code) [facility] (36228) Lot [phone] (no code) [facility] (97907) Lot # [id number] (no code) [facility] (43796) pH (Bld) 5.5 [pH] (no code) 7.38 - 7.42 [pH] [facility] (39957) Protein (U) 2+ (no code) [facility] [Mass/Vol] [facility] (52569) SG 1.030 (no code) [facility] (62129) URO 0.2 (no code) [facility]alt [facility] (56520) No panel information on 2018-11-30 Albumin 3.7 g/dL (N) 3.4 - 5.4 g/dL [facility] Health [Mass/Vol] [facility] (19331) Albumin/Globulin 1.3 {ratio} (N) 1 - 2.5 {ratio} [facility] [Mass ratio] [facility] (39222) ALP [Catalytic 92 U/L (N) 44 - 147 U/L [facility] activity/Vol] [facility] (86365) ALT [Catalytic 22 U/L (N) 4 - 40 U/L [facility] ealth activity/Vol] [facility] (62551) AST [Catalytic 16 U/L (N) 10 - 34 U/L [facility] activity/Vol] [facility] (24155) Basophils (Bld) 0.101 10*3/uL (N) 0 - 0.3 10*3/uL [facility] Health [#/Vol] [facility] (40626) Basophils/100 1.1 % (N) 0.5 - 1 % Community He alth WBC (Bld) [facility] (67175) Bilirubin 0.2 mg/dL (N) 0.1 - 1.2 mg/dL [facility] [Mass/Vol] [facility] (68123) Calcium 9.6 mg/dL (N) 8.5 - 10.2 mg/dL [facility] [Mass/Vol] [facility] (07220) Chloride 102 mmol/L (N) 95 - 106 mmol/L [facility] [Moles/Vol] [facility] (27482) CO2 [Moles/Vol] 23 mmol/L (N) 23 - 29 mmol/L [facility] (30204) Creatinine 0.63 mg/dL (N) [facility] [Mass/Vol] [facility] (71351) Eosinophils 0.129 10*3/uL (N) 0.05 - 0.5 Community He alth (Bld) [#/Vol] 10*3/uL [facility] (57357) Eosinophils/100 1.4 % (N) 1 - 4 % [facility] WBC (Bld) [facility] (21561) Erythrocyte 13.5 % (N) 11.6 - 14.6 % [facility] ealth distribution Center [facility] (RBC) [facility] [Ratio] (45543) GFR/1.73 sq M 126 (N) 90 - 120 [facility] He alth predicted among mL/min/{1.73_m2} mL/min/{1.73_m2} Center o f [facility] blacks MDRD [facility] (S/P/Bld) [Vol (29540) rate/Area] GFR/1.73 sq 108 (N) 90 - 120 [facility] Heal th M.predicted MDRD mL/min/{1.73_m2} mL/min/{1.73_m2} [facility] (S/P/Bld) [Vol [facility] rate/Area] (62895) Globulin (S) 2.9 g/dL (N) 2 - 3.5 g/dL [facility] [Mass/Vol] [facility] (86445) Glucose 306 mg/dL (H) 60 - 125 mg/dL [facility] [Mass/Vol] [facility] (11706) Hematocrit (Bld) 43.1 % (N) 36.1 - 50.3 % [facility] [Volume [facility]] [facility] (99056) Hemoglobin (Bld) 13.8 g/dL (N) 12.1 - 17.2 g/dL [facility] [Mass/Vol] [facility] (11256) Lymphocytes 2.677 10*3/uL (N) 0.9 - 2.9 [facility] alth (Bld) [#/Vol] 10*3/uL [facility] (74125) Lymphocytes/100 29.1 % (N) 20 - 40 % [facility] WBC (Bld) [facility] (02976) MCH (RBC) 28.2 pg (N) 27 - 31 pg [facility] [Entitic mass] [facility] (64755) MCHC (RBC) 32.0 g/dL (N) 32 - 36 g/dL Community He alth [Mass/Vol] [facility] (04592) MCV (RBC) 88.1 fL (N) 80 - 100 fL [facility] Hea lth [Entitic vol] [facility] (46554) Monocytes (Bld) 0.626 10*3/uL (N) 0.3 - 0.9 [facility] [#/Vol] 10*3/uL [facility] (84837) Monocytes/100 6.8 % (N) 2 - 8 % [facility] He alth WBC (Bld) [facility] (30507) Neutrophils 5.667 10*3/uL (N) 1.7 - 7 10*3/uL [facility] Health (Bld) [#/Vol] [facility] (70858) Neutrophils/100 61.6 % (N) 40 - 60 % [facility] WBC (Bld) [facility] (21772) Platelet mean 10.2 fL (N) 7.2 - 11.7 fL [facility] Health volume (Bld) [facility] [Entitic vol] [facility] (77186) Platelets (Bld) 231 10*3/uL (N) 150 - 450 [facility] [#/Vol] 10*3/uL [facility] (13262) Potassium 4.1 mmol/L (N) 3.7 - 5.2 mmol/L [facility] [Moles/Vol] [facility] (92629) Protein 6.6 g/dL (N) 6.4 - 8.3 g/dL [facility] [Mass/Vol] [facility] (23202) RBC (Bld) 4.89 10*6/uL (N) 4.2 - 6.1 [facility] He lth [#/Vol] 10*6/uL [facility] (11643) Sodium 136 mmol/L (N) 135 - 145 mmol/L [facility] [Moles/Vol] [facility] (27604) Urea nitrogen 13 mg/dL (N) 7 - 20 mg/dL [facility] [Mass/Vol] [facility] (77131) Urea NOT APPLICABLE (no code) Community [facility]alt nitrogen/Creatin [facility] [Mass ratio] [facility] (39299) WBC (Bld) 9.2 10*3/uL (N) 3.5 - 10.5 Community [facility] [#/Vol] 10*3/uL [facility] (36280) No panel information on 2018-11-24 Bacteria SEE NOTE (A) [facility] identified Cx [facility] (U) [facility] (88486) BLO trace-intact (no code) [facility] (60304) KET no information (no code) [facility] (82827) Lot # [id number] (no code) [facility] (57900) pH (Bld) 5.5 [pH] (no code) 7.38 - 7.42 [pH] [facility] (02425) SG 1.010 (no code) [facility] (76369) No panel information on 2018-07-05 Alphahydroxyalpr no information (no code) Community [facility] azolam [facility] (40673) Alphahydroxymida no information (no code) [facility] zolam [facility] (02642) Alphahydroxytria no information (no code) [facility] (84562) Aminoclonazepam no information (no code) [facility] (24935) Hydroxyethylflur no information (no code) Community [facility] azepam [facility] (28656) Lorazepam 83 (H) [facility] (13357) Nordiazepam no information (no code) [facility] (98010) Oxazepam no information (no code) [facility] (97121) Temazepam no information (no code) [facility] (01896) 6 Acetylmorphine no information (no code) [facility] (75223) Alcohol no information (no code) [facility] Metabolites [facility] (97296) Amphetamines Ql no information (no code) [facility] th (U) [facility] (83677) Benzodiazepines no information (A) [facility] Ql (U) [facility] (43909) Benzoylecgonine no information (no code) [facility] Ql (U) [facility] (27475) Buprenorphine no information (no code) [facility] (69451) COMMENT no information (no code) [facility] (64071) Creatinine (U) 67.4 mg/dL (no code) [facility] [Mass/Vol] [facility] (44438) MDMA no information (no code) [facility] (53802) medMATCH 6 CONSISTENT (no code) [facility] Acetylmorphine [facility] (12050) medMATCH Alcohol CONSISTENT (no code) Community a lt Metab [facility] (19159) medMATCH CONSISTENT (no code) [facility] h Aminoclonazepam [facility] (55920) medMATCH CONSISTENT (no code) [facility] Healt Amphetamines [facility] (65410) medMATCH aOH CONSISTENT (no code) [facility] alprazolam [facility] (58808) medMATCH aOH CONSISTENT (no code) [facility] midazolam [facility] (87709) medMATCH aOH CONSISTENT (no code) [facility] triazolam [facility] (90212) medMATCH CONSISTENT (no code) [facility] Buprenorphine [facility] (91943) medMATCH Cocaine CONSISTENT (no code) [facility] lt Metab [facility] (63417) medMATCH CONSISTENT (no code) [facility] Lorazepam [facility] (92084) medMATCH CONSISTENT (no code) [facility] Marijuana Metab [facility] (04325) medMATCH MDMA CONSISTENT (no code) [facility] (06789) medMATCH CONSISTENT (no code) [facility] Nordiazepam [facility] (43938) medMATCH [place],Et CONSISTENT (no code) [facility] flurazepam [facility] (90643) medMATCH Opiates CONSISTENT (no code) [facility] (33896) medMATCH CONSISTENT (no code) [facility] Oxazepam [facility] (95137) medMATCH CONSISTENT (no code) [facility] Oxycodone [facility] (70485) medMATCH CONSISTENT (no code) [facility] Temazepam [facility] (82607) Opiates Ql (U) no information (no code) [facility] (60883) Oxidants Ql (U) no information (no code) [facility] (79097) Oxycodone Ql (U) no information (no code) [facility] (52847) pH (U) 5.94 [pH] (no code) 4.6 - 8 [pH] [facility] (83526) Prescribed Drug Ativan(TM) (no code) [facility] 1 [facility] (92405) Tetrahydrocannab no information (no code) [facility] inol Ql (U) [facility] (71115) venous blood hemoglobin measurement (mass/volume) on 2018-03-21 Hemoglobin mass 14.4 g/dL (no code) 12.1 - 17.2 g/dL [facility] conc (Bld) [facility] (27887) urine urobilinogen measurement by automated test strip (mass/volume) on 2018-03-21 Urobilinogen NORMAL (no code) [facility] Test strip Qn [facility] (U) (25890) urine total bilirubin detection by test strip on 2018-03-21 Bilirubin Ql (U) no information (no code) [facility] (85214) urine protein assay by test strip, semi-quantitativ e on 2018-03-21 Protein Test 3+ (*) [facility] strip Ql (U) [facility] (63882) urine ph measurement by test strip on 2018-03-21 pH Test strip 5 [pH] (no code) 4.6 - 8 [pH] [facility] (U) [facility] (82180) urine nitrite detection by test strip on 2018-03-21 Nitrite Test no information (no code) [facility] strip Ql (U) [facility] (08360) urine leukocyte esterase detection by dipstick on 2018-03-21 Leukocyte no information (no code) [facility] esterase Test [facility] strip Ql (U) (89448) urine ketones detection by automated test strip on 2018-03-21 Ketones 3+ (*) [facility] Automated test [facility] strip Ql (U) (77886) urine glucose detection by automated test strip on 2018-03-21 Glucose 3+ (*) [facility] Automated test [facility] strip Ql (U) (89748) urine color determination on 2018-03-21 Color Nom (U) YELLOW (no code) [facility] (34803) urine clarity determination on 2018-03-21 Clarity Nom (U) CLEAR (no code) [facility] (26700) squamous epithelial cells detection in urine sediment by light microscopy on 2018-03-21 Epithelial no information (*) [facility] cells.squamous [facility] LM Ql (Urine (35900) sed) specific gravity of urine by test strip on 2018-03-21 Specific gravity 1.025 (*) [facility] Relative Density [facility] (U) (16052) serum or plasma urea nitrogen/creatin ine mass ratio on 2018-03-21 Urea 12 mg/mg (no code) 6 - 22 mg/mg [facility] nitrogen/Creatin [facility] ine mass ratio (49657) serum or plasma urea nitrogen measurement (mass/volume) on 2018-03-21 Urea nitrogen 7 mg/dL (no code) 7 - 20 mg/dL [facility] mass conc [facility] (70133) serum or plasma total bilirubin measurement (mass/volume) on 2018-03-21 Bilirubin mass 0.5 mg/dL (no code) 0.1 - 1.2 mg/dL [facility] (08474) serum or plasma sodium measurement (moles/volume) on 2018-03-21 Sodium molar 139 mmol/L (no code) 135 - 145 mmol/L [facility] (57856) serum or plasma protein measurement (mass/volume) on 2018-03-21 Protein mass 7.4 g/dL (no code) 6.4 - 8.3 g/dL [facility] (39779) serum or plasma potassium measurement (moles/volume) on 2018-03-21 Potassium molar 3.8 mmol/L (no code) 3.7 - 5.2 mmol/L [facility] (11172) serum or plasma glucose measurement (mass/volume) on 2018-03-21 Glucose mass 187 mg/dL (H) 60 - 125 mg/dL [facility] (17006) serum or plasma creatinine measurement with calculation of estimated glomerular filtration rate on 2018-03-21 GFR/1.73 sq M no information (no code) [facility] predicted among [facility] non-blacks MDRD (25626) vol rate/area (S/P/Bld) serum or plasma creatinine measurement (mass/volume) on 2018-03-21 Creatinine mass 0.60 mg/dL (no code) [facility] (61058) serum or plasma chloride measurement (moles/volume) on 2018-03-21 Chloride molar 106 mmol/L (no code) 95 - 106 mmol/L [facility] (75200) serum or plasma calcium measurement (mass/volume) on 2018-03-21 Calcium mass 9.1 mg/dL (no code) 8.5 - 10.2 mg/dL [facility] (74835) serum or plasma aspartate aminotransferase measurement (enzymatic activity/volume) on 2018-03-21 AST enzyme 15 U/L (no code) 10 - 34 U/L [facility] act/[facility] (91585) serum or plasma anion gap determination (moles/volume) on 2018-03-21 Anion gap 3 14 mmol/L (no code) 3 - 11 mmol/L [facility] molar [facility] (88190) serum or plasma alkaline phosphatase measurement (enzymatic activity/volume) on 2018-03-21 ALP enzyme 87 U/L (no code) 44 - 147 U/L [facility] act/[facility] (32537) serum or plasma albumin measurement (mass/volume) on 2018-03-21 Albumin mass 4.1 g/dL (no code) 3.4 - 5.4 g/dL [facility] (34077) serum or plasma alanine aminotransferase measurement (enzymatic activity/volume) on 2018-03-21 ALT enzyme 19 U/L (no code) 4 - 40 U/L [facility] act/[facility] (22790) mucus detection in urine sediment by light microscopy on 2018-03-21 Mucus LM Ql SMALL (*) [facility] (Urine sed) [facility] (13267) lipase on 2018-03-21 Lipase enzyme 36 U/L (no code) 10 - 73 U/L [facility] act/[facility] (53744) erythrocytes detection in urine sediment by light microscopy on 2018-03-21 RBC LM Ql (Urine 1+ (*) [facility] sed) [facility] (79038) crystals detection in urine sediment by light microscopy on 2018-03-21 Crystals LM Ql PRESENT (*) [facility] (Urine sed) [facility] (45741) complete urinalysis with reflex to culture on 2018-03-21 Urinalysis YES (no code) [facility] complete W [facility] Reflex Culture (55016) panel - Urine casts detection in urine sediment by light microscopy on 2018-03-21 Casts LM Ql NONE (no code) [facility] (Urine sed) [facility] (93074) carbon dioxide on 2018-03-21 CO2 molar conc 19 mmol/L (L) 23 - 29 mmol/L [facility] (59670) capillary blood glucose measurement by glucometer (mass/volume) on 2018-03-21 Glucose mass 183 mg/dL (H) 60 - 125 mg/dL [facility] (55108) calcium measurement corrected for albumin on 2018-03-21 Albumin mass 9.0 g/dL (no code) 3.4 - 5.4 g/dL [facility] (43876) blood neutrophils automated count (number/volume) on 2018-03-21 Neutrophils Auto 6.6 10*3/uL (no code) 1.7 - 7 10*3/uL [facility] #/vol (Bld) [facility] (71036) blood monocytes/100 leukocytes on 2018-03-21 Monocytes/100 7 % (no code) 2 - 8 % [facility] WBC Auto (Bld) [facility] (75924) blood monocytes automated count (number/volume) on 2018-03-21 Monocytes Auto 0.6 10*3/uL (no code) 0.3 - 0.9 [facility] #/vol (Bld) 10*3/uL [facility] (80377) blood lymphocytes automated count (number/volume) on 2018-03-21 Lymphocytes Auto 2.0 10*3/uL (no code) 0.9 - 2.9 [facility] #/vol (Bld) 10*3/uL [facility] (08485) blood leukocytes automated count (number/volume) on 2018-03-21 WBC Auto #/vol 9.3 10*3/uL (no code) 3.5 - 10.5 [facility] (Bld) 10*3/uL [facility] (71499) blood hematocrit (volume fraction) on 2018-03-21 Hematocrit Auto 41 % (no code) 36.1 - 50.3 % [facility] Volume Fraction [facility] ([facility]) (62603) blood erythrocytes automated count (number/volume) on 2018-03-21 RBC Auto #/vol 5.08 10*6/uL (no code) 4.2 - 6.1 [facility] (Bld) 10*6/uL [facility] (72751) bacteria detection in urine sediment by light microscopy on 2018-03-21 Bacteria LM Ql MODERATE (*) [facility] (Urine sed) [facility] (61258) automated urine sediment leukocyte count by microscopy (number/high power field) on 2018-03-21 WBC LM.HPF no information (*) [facility] #/area (Urine [facility] sed) (54942) automated urine sediment erythrocyte count by microscopy (number/high power field) on 2018-03-21 RBC LM.HPF no information (no code) [facility] #/area (Urine [facility] sed) (98068) automated erythrocyte mean corpuscular volume on 2018-03-21 MCV Auto Entitic 81 fL (no code) 80 - 100 fL [facility] volume (RBC) [facility] (05122) automated erythrocyte mean corpuscular hemoglobin concentration measurement (mass/volume) on 2018-03-21 MCHC Auto mass 35 g/dL (no code) 32 - 36 g/dL [facility] conc (RBC) [facility] (12880) automated erythrocyte mean corpuscular hemoglobin (mass per erythrocyte) on 2018-03-21 MCH Auto Entitic 28 pg (no code) 27 - 31 pg [facility] mass (RBC) [facility] (01244) automated erythrocyte distribution width ratio on 2018-03-21 Erythrocyte 13.6 % (no code) 11.6 - 14.6 % [facility] distribution [facility] width Auto Ratio (14628) (RBC) automated eosinophil count on 2018-03-21 Eosinophils Auto 0.0 10*3/uL (no code) 0.05 - 0.5 [facility] #/vol (Bld) 10*3/uL [facility] (00547) automated blood platelet mean volume measurement on 2018-03-21 Platelet mean 9.8 fL (no code) 7.2 - 11.7 fL [facility] Via volume Auto [facility] Entitic volume ([id number]) (Bld) automated blood platelet count (count/volume) on 2018-03-21 Platelets Auto 273 10*3/uL (no code) 150 - 450 [place] [facility] ia #/vol (Bld) 10*3/uL [facility] ([id number]) automated blood neutrophils/100 leukocytes on 2018-03-21 Neutrophils/100 71 % (no code) 40 - 60 % [place] [facility] WBC Auto (Bld) [facility] (00274) automated blood lymphocytes/100 leukocytes on 2018-03-21 Lymphocytes/100 21 % (no code) 20 - 40 % [place] [facility] WBC Auto (Bld) [facility] (21258) automated blood eosinophils/100 leukocytes on 2018-03-21 Eosinophils/100 0 % (no code) 1 - 4 % [place] [facility] WBC Auto (Bld) [facility] (95083) automated blood basophils/100 leukocytes on 2018-03-21 Basophils/100 1 % (no code) 0.5 - 1 % [place] [facility] a WBC Auto (d) [facility] (80597) automated blood basophil count (count/volume) on 2018-03-21 Basophils Auto 0.1 10*3/uL (no code) 0 - 0.3 10*3/uL [facility] #/vol (d) [facility] (10676) amorphous sediment detection in urine sediment by light microscopy on 2018-03-21 Amorphous FEW ES URATES (*) [facility] Via sediment LM Ql [facility] (Urine sed) (93000) venous blood hemoglobin measurement (mass/volume) on 2018-03-17 Hemoglobin mass 15.5 g/dL (no code) 12.1 - 17.2 g/dL As[facility] ns[facility] Via conc (d) [facility] (12193) urine urobilinogen measurement by automated test strip (mass/volume) on 2018-03-17 Urobilinogen NORMAL (no code) [place] [facility] Test strip Qn [facility] (U) (68925) urine total bilirubin detection by test strip on 2018-03-17 Bilirubin Ql (U) no information (no code) [place] [facility] (36653) urine protein assay by test strip, semi-quantitativ e on 2018-03-17 Protein Test no information (no code) [facility] strip Ql (U) [facility] (09453) urine ph measurement by test strip on 2018-03-17 pH Test strip 5 [pH] (no code) 4.6 - 8 [pH] [facility] [facility] (U) [facility] (03532) urine nitrite detection by test strip on 2018-03-17 Nitrite Test no information (no code) [place] [facility] strip Ql (U) [facility] (57940) urine leukocyte esterase detection by dipstick on 2018-03-17 Leukocyte no information (no code) [place] [facility] esterase Test [facility] strip Ql (U) (67974) urine ketones detection by automated test strip on 2018-03-17 Ketones 4+ (*) [place] [facility] Automated test [facility] strip Ql (U) (61660) urine glucose detection by automated test strip on 2018-03-17 Glucose 4+ (*) [place] [facility] Automated test [facility] strip Ql (U) (89565) urine color determination on 2018-03-17 Color Nom (U) YELLOW (no code) [place] [facility] (14720) urine clarity determination on 2018-03-17 Clarity Nom (U) CLEAR (no code) [facility] () squamous epithelial cells detection in urine sediment by light microscopy on 2018-03-17 Epithelial no information (no code) [place] [facility] cells.squamous [facility] LM Ql (Urine () sed) specific gravity of urine by test strip on 2018-03-17 Specific gravity 1.015 (*) [place] [facility] Relative Density [facility] (U) (15100) serum or plasma urea nitrogen/creatin ine mass ratio on 2018-03-17 Urea 28 mg/mg (no code) 6 - 22 mg/mg [facility] a nitrogen/Creatin [facility] ine mass ratio () serum or plasma urea nitrogen measurement (mass/volume) on 2018-03-17 Urea nitrogen 21 mg/dL (H) 7 - 20 mg/dL [place] [facility] mass [facility] (29534) serum or plasma total bilirubin measurement (mass/volume) on 2018-03-17 Bilirubin mass 0.4 mg/dL (no code) 0.1 - 1.2 mg/dL [facility] Via [facility] (16004) serum or plasma sodium measurement (moles/volume) on 2018-03-17 Sodium molar 138 mmol/L (no code) 135 - 145 mmol/L [facility] Via [facility] (15357) serum or plasma protein measurement (mass/volume) on 2018-03-17 Protein mass 8.3 g/dL (H) 6.4 - 8.3 g/dL [facility] (67485) serum or plasma potassium measurement (moles/volume) on 2018-03-17 Potassium molar 4.1 mmol/L (no code) 3.7 - 5.2 mmol/L Asce nsion Via [facility] (22747) serum or plasma glucose measurement (mass/volume) on 2018-03-17 Glucose mass 348 mg/dL (H) 60 - 125 mg/dL [facility] (09297) serum or plasma creatinine measurement with calculation of estimated glomerular filtration rate on 2018-03-17 GFR/1.73 sq M no information (no code) [facility] Via predicted among [facility] non-blacks MDRD (54755) vol rate/area (S/P/Bld) serum or plasma creatinine measurement (mass/volume) on 2018-03-17 Creatinine mass 0.74 mg/dL (no code) [place] [facility] (90199) serum or plasma chloride measurement (moles/volume) on 2018-03-17 Chloride molar 105 mmol/L (no code) 95 - 106 mmol/L [facility] (75377) serum or plasma calcium measurement (mass/volume) on 2018-03-17 Calcium mass 9.6 mg/dL (no code) 8.5 - 10.2 mg/dL [facility] Via [facility] (43267) serum or plasma aspartate aminotransferase measurement (enzymatic activity/volume) on 2018-03-17 AST enzyme 17 U/L (no code) 10 - 34 U/L [facility] [facility] (41107) serum or plasma anion gap determination (moles/volume) on 2018-03-17 Anion gap 3 20 mmol/L (H) 3 - 11 mmol/L [place] [facility] ia molar [facility] (13903) serum or plasma alkaline phosphatase measurement (enzymatic activity/volume) on 2018-03-17 ALP enzyme 116 U/L (no code) 44 - 147 U/L [facility] a [facility] (03617) serum or plasma albumin measurement (mass/volume) on 2018-03-17 Albumin mass 4.5 g/dL (no code) 3.4 - 5.4 g/dL [facility] (43697) serum or plasma alanine aminotransferase measurement (enzymatic activity/volume) on 2018-03-17 ALT enzyme 20 U/L (no code) 4 - 40 U/L [place] [facility] act/[facility] (24208) mucus detection in urine sediment by light microscopy on 2018-03-17 Mucus LM Ql no information (no code) [place] [facility] (Urine sed) [facility] (79103) magnesium on 2018-03-17 Magnesium mass 2.1 mg/dL (no code) 1.7 - 2.2 mg/dL [facility] Via [facility] (57430) lipase on 2018-03-17 Lipase enzyme 37 U/L (no code) 10 - 73 U/L [place] [facility] act/[facility] (24425) erythrocytes detection in urine sediment by light microscopy on 2018-03-17 RBC LM Ql (Urine no information (no code) [place] [facility] sed) [facility] (51549) crystals detection in urine sediment by light microscopy on 2018-03-17 Crystals LM Ql NONE (no code) [place] [facility] (Urine sed) [facility] (69345) complete urinalysis with reflex to culture on 2018-03-17 Urinalysis NO (no code) [place] [facility] complete W [facility] Reflex Culture ([id number]) panel - Urine casts detection in urine sediment by light microscopy on 2018-03-17 Casts LM Ql NONE (no code) [place] [facility] (Urine sed) [facility] (35084) carbon dioxide on 2018-03-17 CO2 molar conc 13 mmol/L (L) 23 - 29 mmol/L [facility] (17284) capillary blood glucose measurement by glucometer (mass/volume) on 2018-03-17 Glucose mass 197 mg/dL (H) 60 - 125 mg/dL [place] [facility] (24955) calcium measurement corrected for albumin on 2018-03-17 Albumin mass 9.2 g/dL (no code) 3.4 - 5.4 g/dL [place] [facility] (48004) blood neutrophils automated count (number/volume) on 2018-03-17 Neutrophils Auto 9.5 10*3/uL (H) 1.7 - 7 10*3/uL Asce nsion Via #/vol (Bld) [facility] (99215) blood monocytes/100 leukocytes on 2018-03-17 Monocytes/100 5 % (no code) 2 - 8 % [facility] a WBC Auto (Bld) [facility] (98821) blood monocytes automated count (number/volume) on 2018-03-17 Monocytes Auto 0.6 10*3/uL (no code) 0.3 - 0.9 [place] [facility] #/vol (Bld) 10*3/uL [facility] (29475) blood lymphocytes automated count (number/volume) on 2018-03-17 Lymphocytes Auto 1.8 10*3/uL (no code) 0.9 - 2.9 [place] [facility] #/vol (Bld) 10*3/uL [facility] (15648) blood leukocytes automated count (number/volume) on 2018-03-17 WBC Auto #/vol 11.9 10*3/uL (H) 3.5 - 10.5 [place] [facility] (Bld) 10*3/uL [facility] (69038) blood hematocrit (volume fraction) on 2018-03-17 Hematocrit Auto 45 % (no code) 36.1 - 50.3 % [facility] Via Volume Fraction [facility] (Bld) (51356) blood erythrocytes automated count (number/volume) on 2018-03-17 RBC Auto #/vol 5.44 10*6/uL (no code) 4.2 - 6.1 [place] [facility] (Bld) 10*6/uL [facility] (83988) bacteria detection in urine sediment by light microscopy on 2018-03-17 Bacteria LM Ql no information (no code) [place] [facility] (Urine sed) [facility] (92607) automated urine sediment leukocyte count by microscopy (number/high power field) on 2018-03-17 WBC LM.HPF NONE (no code) [place] [facility] #/area (Urine [facility] sed) (55697) automated urine sediment erythrocyte count by microscopy (number/high power field) on 2018-03-17 RBC LM.HPF no information (no code) [place] [facility] #/area (Urine [facility] sed) (83642) automated erythrocyte mean corpuscular volume on 2018-03-17 MCV Auto Entitic 83 fL (no code) 80 - 100 fL [facility] volume (RBC) [facility] (27908) automated erythrocyte mean corpuscular hemoglobin concentration measurement (mass/volume) on 2018-03-17 MCHC Auto mass 35 g/dL (no code) 32 - 36 g/dL [place] [facility] conc (RBC) [facility] (38045) automated erythrocyte mean corpuscular hemoglobin (mass per erythrocyte) on 2018-03-17 MCH Auto Entitic 29 pg (no code) 27 - 31 pg [place] [facility] mass (RBC) [facility] (59937) automated erythrocyte distribution width ratio on 2018-03-17 Erythrocyte 13.6 % (no code) 11.6 - 14.6 % [place] [facility] ia distribution [facility] width Auto Ratio (56281) (RBC) automated eosinophil count on 2018-03-17 Eosinophils Auto 0.0 10*3/uL (no code) 0.05 - 0.5 [place] [facility] #/vol (Bld) 10*3/uL [facility] (08756) automated blood platelet mean volume measurement on 2018-03-17 Platelet mean 10.2 fL (no code) 7.2 - 11.7 fL [place] [facility] volume Auto [facility] Entitic volume (30500) (Bld) automated blood platelet count (count/volume) on 2018-03-17 Platelets Auto 316 10*3/uL (no code) 150 - 450 [place] [facility] #/vol (Bld) 10*3/uL [facility] (83080) automated blood neutrophils/100 leukocytes on 2018-03-17 Neutrophils/100 79 % (H) 40 - 60 % [place] [facility] WBC Auto (d) [facility] (99531) automated blood lymphocytes/100 leukocytes on 2018-03-17 Lymphocytes/100 15 % (no code) 20 - 40 % [place] [facility] WBC Auto (Bld) [facility] (60194) automated blood eosinophils/100 leukocytes on 2018-03-17 Eosinophils/100 0 % (no code) 1 - 4 % [place] [facility] WBC Auto (d) [facility] (23075) automated blood basophils/100 leukocytes on 2018-03-17 Basophils/100 0 % (no code) 0.5 - 1 % [place] [facility] a WBC Auto (d) [facility] (07490) automated blood basophil count (count/volume) on 2018-03-17 Basophils Auto 0.1 10*3/uL (no code) 0 - 0.3 10*3/uL [facility] Via #/vol (Bld) [facility] (52354) No panel information on 2018-03-07 Exp date 11/2019 (no code) [facility] (90675) Lot 13.1~12.6~0932 (no code) [facility] (27372) No panel information on 2018-02-28 BLO 1+ (no code) [facility] (78044) KET no information (no code) [facility] ([id number]) Lot # [id number] (no code) [facility] (22244) pH (Bld) 5.0 [pH] (no code) 7.38 - 7.42 [pH] [facility] (45565) Protein (U) no information (no code) 0 - 20 mg/dL [facility] [Mass/Vol] [facility] (38823) SG 1.015 (no code) [facility] (01601) URO 0.2 (no code) [facility] (90788) No panel information on 2017-12-08 Albumin mass 4.0 g/dL (N) 3.4 - 5.4 g/dL [facility] (66151) Albumin/Globulin 1.4 (N) [facility] mass ratio [facility] (07142) ALP enzyme 85 U/L (N) 44 - 147 U/L [facility] alth act/vol [facility] (37878) ALT enzyme 20 U/L (N) 4 - 40 U/L [facility] act/vol [facility] (87433) AST enzyme 15 U/L (N) 10 - 34 U/L [facility] act/vol [facility] (27403) Basophils Auto 0.102 10*3/uL (N) 0 - 0.3 10*3/uL [facility] #/vol (Bld) [facility] (16044) Basophils/100 1.4 % (N) 0.5 - 1 % [facility] alth WBC Auto (d) [facility] (93260) Bilirubin mass 0.5 mg/dL (N) 0.1 - 1.2 mg/dL [facility] (83580) Calcium mass 9.4 mg/dL (N) 8.5 - 10.2 mg/dL [facility] (36213) Chloride molar 105 mmol/L (N) 95 - 106 mmol/L [facility] (53832) Cholesterol in 41 mg/dL (L) [facility] HDL mass [facility] (35306) Cholesterol in no information (no code) [facility] (70029) Cholesterol mass 278 mg/dL (H) 180 - 200 mg/dL Comm [facility] conc [facility] (46166) Cholesterol non 237 (H) [facility] HDL mass conc [facility] (74176) Cholesterol.tota 6.8 (H) [facility] He lth l/Cholesterol in [facility] HDL mass ratio [facility] (10145) CO2 molar conc 21 mmol/L (N) 23 - 29 mmol/L [facility] (30435) Creatinine mass 0.38 mg/dL (L) [facility] conc [facility] (62772) Eosinophils Auto 0.11 10*3/uL (N) 0.05 - 0.5 [facility] #/vol (Bld) 10*3/uL [facility] (38123) Eosinophils/100 1.5 % (N) 1 - 4 % [facility] WBC Auto (Bld) [facility] (57364) Erythrocyte 12.9 % (N) 11.6 - 14.6 % [facility] ealth distribution [facility] width Auto Ratio [facility] (RBC) (34772) GFR/1.73 sq M 149 (N) 90 - 120 [facility] predicted among mL/min/{1.73_m2} mL/min/{1.73_m2} Center o f [facility] blacks MDRD vol [facility] rate/area (98612) (S/P/Bld) GFR/1.73 sq 129 (N) 90 - 120 [facility] M.predicted MDRD mL/min/{1.73_m2} mL/min/{1.73_m2} Center [facility] vol rate/area [facility] (19780) Globulin 2.8 (N) [facility] Calculated mass Center [facility] (S) [facility] (37718) Glucose mass 350 mg/dL (H) 60 - 125 mg/dL [facility] (52609) Hematocrit Auto 43.7 % (N) 36.1 - 50.3 % [facility] Volume Fraction [facility] (Bld) [facility] (59674) Hemoglobin mass 14.6 g/dL (N) 12.1 - 17.2 g/dL [facility] conc (Bld) [facility] (27994) Lymphocytes Auto 2.124 10*3/uL (N) 0.9 - 2.9 [facility] #/vol (Bld) 10*3/uL [facility] (41997) Lymphocytes/100 29.1 % (N) 20 - 40 % [facility] Health WBC Auto (Bld) [facility] (55024) MCH Auto Entitic 28.6 pg (N) 27 - 31 pg [facility] mass (RBC) [facility] (18363) MCHC Auto mass 33.4 g/dL (N) 32 - 36 g/dL [facility] conc (RBC) [facility] (07659) MCV Auto Entitic 85.7 fL (N) 80 - 100 fL [facility] volume (RBC) [facility] (27096) Monocytes Auto 0.489 10*3/uL (N) 0.3 - 0.9 [facility] Health #/vol (Bld) 10*3/uL [facility] (61326) Monocytes/100 6.7 % (N) 2 - 8 % [facility] alth WBC Auto (Bld) [facility] (44479) Neutrophils Auto 4.475 10*3/uL (N) 1.7 - 7 10*3/uL [facility] #/vol (Bld) [facility] (64671) Neutrophils/100 61.3 % (N) 40 - 60 % [facility] WBC Auto (Bld) [facility] (61573) Platelet mean 10.4 fL (N) 7.2 - 11.7 fL [facility] Health volume Auto [facility] Entitic [facility] (Bld) (82008) Platelets Auto 242 10*3/uL (N) 150 - 450 [facility] #/vol (Bld) 10*3/uL [facility] (63783) Potassium molar 4.1 mmol/L (N) 3.7 - 5.2 mmol/L Comm [facility] conc [facility] (44897) Protein mass 6.8 g/dL (N) 6.4 - 8.3 g/dL [facility] (43060) RBC Auto #/vol 5.10 10*6/uL (N) 4.2 - 6.1 [facility] Health (Bld) 10*6/uL [facility] (88345) Sodium molar 138 mmol/L (N) 135 - 145 mmol/L [facility] (43116) Triglyceride 444 mg/dL (H) 0 - 150 mg/dL [facility] (19739) Urea nitrogen 13 mg/dL (N) 7 - 20 mg/dL [facility] (32796) Urea 34 mg/mg (H) 6 - 22 mg/mg [facility] alth nitrogen/Creatin [facility] (01593) WBC Auto #/vol 7.3 10*3/uL (N) 3.5 - 10.5 [facility] H ealth (Bld) 10*3/uL [facility] (00471) yeast detection in urine sediment by light microscopy on 2017-10-02 Urine, yeast FEW (*) Via [facility] in [facility] sediment [place] () urine urobilinogen measurement by automated test strip (mass/volume) on 2017-10-02 Urine, NORMAL (no code) [facility] urine total bilirubin detection by test strip on 2017-10-02 Urine, bilirubin no information (no code) Via [facility] (38788) urine protein assay by test strip, semi-quantitativ e on 2017-10-02 Urine, protein 1+ (*) Via [facility] (44596) urine ph measurement by test strip on 2017-10-02 Urine, pH 5 [pH] (no code) 4.6 - 8 [pH] Via [facility] (77088) urine nitrite detection by test strip on 2017-10-02 Urine, nitrite no information (no code) Via [facility] (00266) urine ketones detection by automated test strip on 2017-10-02 Urine, ketones 3+ (*) Via [facility] (67181) urine glucose detection by automated test strip on 2017-10-02 Urine, glucose 4+ (*) Via [facility] (95166) urine color determination on 2017-10-02 Urine, color YELLOW (no code) Via [facility] (85426) urine clarity determination on 2017-10-02 Urine, clarity SLIGHTLY CLOUDY (no code) Via [facility] (30266) squamous epithelial cells detection in urine sediment by light microscopy on 2017-10-02 Urine, squamous no information (no code) Via [facility] cells presence [facility] in [facility] (49564) specific gravity of urine by test strip on 2017-10-02 Urine, specific 1.020 (no code) Via [facility] gravity [facility] (50445) mucus detection in urine sediment by light microscopy on 2017-10-02 Urine, mucus no information (no code) Via [facility] in [facility] (94015) leukocyte esterase on 2017-10-02 Urine, leukocyte no information (no code) Via [facility] esterase [facility] (79552) erythrocytes detection in urine sediment by light microscopy on 2017-10-02 Urine, 4+ (*) Via [facility] erythrocytes [facility] (05392) crystals detection in urine sediment by light microscopy on 2017-10-02 Urine, crystals NONE (no code) Via [facility] in [facility] (07832) complete urinalysis with reflex to culture on 2017-10-02 Complete NO (no code) Via [facility] urinalysis with Hospital reflex to [place] culture (61318) casts detection in urine sediment by light microscopy on 2017-10-02 Urine, casts in NONE (no code) Via [facility] (65558) bacteria detection in urine sediment by light microscopy on 2017-10-02 Urine, bacteria no information (no code) Via [facility] in [facility] (37460) automated urine sediment leukocyte count by microscopy (number/high power field) on 2017-10-02 Urine, no information (no code) Via [facility] leukocytes in [facility] (09262) automated urine sediment erythrocyte count by microscopy (number/high power field) on 2017-10-02 Urine, no information (no code) Via [facility] erythrocytes in [facility] sediment by [facility] (83210) No panel information on 2017-09-16 Exp date 05/2019 (no code) [facility] (46465) Lot 12.6~11.5~0856 (no code) [facility] (52578) No panel information on 2017-05-26 Exp date 01/2019 (no code) [facility] (47748) Lot 11.5~11.1~0812 (no code) [facility] (78018) No panel information on 2016-06-23 HPV no information (no code) 06-23-2016 Not Availab le 16+18+31+33+35+3 20:26-0400 (55784) 9+45+51+52+56+58 +59+68 DNA Probe+sig amp Ql (Cvx) No panel information on 2016-06-22 Auditor In Charge Cyto Comment (no code) 06-22-2016 Not Availa ble stain Nom 11:46-0400 ([id number]) (Cvx/Vag) [ID] Diagnosis ICD Comment (no code) 06-22-2016 Not Availabl e code 11:46-0400 ([id number]) [Identifier] Microscopic . (no code) 06-22-2016 Not Available observation 11:46-0400 ([id number]) Other stain Nom (Unsp spec) Note: Comment (no code) 06-22-2016 Not Available 11:46-0400 ([id number]) Pathology report Comment (no code) 06-22-2016 Not Avail able final diagnosis 11:46-0400 ([id number]) Narrative Statement of Comment (no code) 06-22-2016 Not Available adequacy Cyto 11:46-0400 (48854) stain (Cvx/Vag) [Interp] No panel information on 2016-05-28 Cholesterol 277 mg/dL (H) 180 - 200 mg/dL 05-28-2016 Not Available [Mass/Vol] 09:35-0500 (56098) Cholesterol in 35 mg/dL (L) 05-28-2016 Not Availab le HDL [Mass/Vol] 09:35-0500 (80894) Cholesterol in Comment (no code) 05-28-2016 Not Availab le LDL [Mass/Vol] 09:35-0500 (16643) Cholesterol in Comment (no code) 05-28-2016 Not Availab le VLDL [Mass/Vol] 09:35-0500 ([id number]) Triglyceride 447 mg/dL (H) 0 - 150 mg/dL 05-28-2016 Not A vailable [Mass/Vol] 09:35-0500 ([id number]) Vital Signs Vital Sign Value Interpretation Reference Date Time Care Prov ider Facility (Normalized) (Normalized) Range BMI (Body Mass 31.46 kg/m2 (no code) 15 - 25 kg/m2 03-07-2018 B CHRISTO TAO Community [facility]) 15:20-0500 88069 [facility] (88955) BMI (Body Mass 31.94 kg/m2 (no code) 15 - 25 kg/m2 02-28-2018 B CHRISTO TAO Community [facility]) 17:40-0500 60820 [facility] (66740) BMI (Body Mass 32.75 kg/m2 (no code) 15 - 25 kg/m2 12-14-2017 K SON CROOK Community Index) 17:00-0400 98873 [facility] (58947) BMI (Body Mass 32.7 kg/m2 (no code) 15 - 25 kg/m2 12-06-2017 BR JADEN TAO Community Index) 16:00-0400 66385 [facility] (03871) BMI (Body Mass 32.51 kg/m2 (no code) 15 - 25 kg/m2 10-27-2017 B CHRISTO TAO Community Index) 17:20-0400 20708 [facility] (08005) BMI (Body Mass 32.23 kg/m2 (no code) 15 - 25 kg/m2 09-16-2017 D KALE COBOS Community Index) 12:20-0400 [id number] [facility] ([id number]) BMI (Body Mass 32.78 kg/m2 (no code) 15 - 25 kg/m2 09-14-2017 K SON CROOK Community Index) 17:00-0400 [id number] [facility] ([id number]) Body 98.2 [degF] (no code) 97.8 - 99.0 03-07-2018 BEVERLY CADET Community Temperature [degF] 15:20-0500 [id number] [facility] ([id number]) Body 97.3 [degF] (no code) 97.8 - 99.0 02-28-2018 [facility] Temperature [degF] 17:40-0500 [id number] [facility] ([id number]) Body 98.3 [degF] (no code) 97.8 - 99.0 12-06-2017 [facility] Temperature [degF] 16:00-0400 83601 [facility] ([id number]) Body 98.2 [degF] (no code) 97.8 - 99.0 10-27-2017 [facility] Temperature [degF] 17:20-0400 [id number] [facility] ([id number]) Body 98 [degF] (no code) 97.8 - 99.0 09-16-2017 LOUISE COLLINS [facility] Temperature [degF] 12:20-0400 29059 [facility] ([id number]) Height 162.56 cm (no code) cm 03-07-2018 [facility] 15:20-0500 [id number] [facility] ([id number]) Height 162.56 cm (no code) cm 02-28-2018 [facility] 17:40-0500 04397 [facility] (42989) Height 162.56 cm (no code) cm 12-14-2017 [facility] 17:00-0400 [id number] [facility] ([id number]) Height 162.56 cm (no code) cm 12-06-2017 [facility] 16:00-0400 [id number] [facility] ([id number]) Height 162.56 cm (no code) cm 10-27-2017 [facility] 17:20-[id number] [place] [address] ([id number]) Height 162.56 cm (no code) cm 09-16-2017 LOUISE WILFREDO [facility] 12:20-0400 29711 [facility] ([id number]) Height 162.56 cm (no code) cm 09-14-2017 [facility] 17:00-0400 [id number] [facility] ([id number]) Pulse Oximetry 0 % (no code) 95 - 100 % 09-16-2017 LOUISE AKASH WILFREDO [facility] 12:20-0400 [id number] [facility] ([id number]) Weight 83.14 kg (no code) kg 03-07-2018 [facility] 15:20-0500 33377 [facility] ([id number]) Weight 84.41 kg (no code) kg 02-28-2018 [facility] 17:40-0500 [id number] [facility] ([id number]) Weight 86.55 kg (no code) kg 12-14-2017 [facility] 17:00-[id number] [place] [address] ([id number]) Weight 86.41 kg (no code) kg 12-06-2017 [facility] 16:00-[id number] [place] [address] ([id number]) Weight 85.91 kg (no code) kg 10-27-2017 [facility] 17:20-[id number] [place] [address] ([id number]) Weight 85.19 kg (no code) kg 09-16-2017 [facility]ISE COBOS [facility] 12:20-[id number] [place] [address] ([id number]) Weight 86.64 kg (no code) kg 09-14-2017 [facility] 17:00-[id number] [place] [address] ([id number]) Interventions No Information Plan of Treatment Normalized Care Care Detail Care Activity Date Care Provider F acility Activity (-) [facility] 01-07-2018 - ARIAN Hinds [facility] 01-07-2018 - [id number] [facility] F/u 30 min 01-07-2018 [place] ([id number]) (BH-FU-30) [facility] 03-30-2018 - ARIAN Hinds [facility] 03-30-2018 - [id number] [facility] F/u 30 min 03-30-2018 [place] ([id number]) (BH-FU-30) [facility] 02-22-2018 ARIAN US [facility] [address] [place] ([id number]) (BH-FU-30) [facility] 04-08-2018 - BEVERLY AISLINN [address] [facility] 04-08-2018 - [facility] min 04-08-2018 [place] ([id number]) (CHM) Chronic Health [facility] 03-07-2018 ARIAN GAVIN [facility] Health Maintenance [facility] [address] [facility] ([id number]) (optometry) [facility] 03-25-2018 - [facility] [address] [facility] Optometry [facility] 03-25-2018 - [facility] 03-25-2018 [place] ([id number]) (Y-FU-20) [facility] 04-05-2018 - ARIAN US [facility] F/U 20 [facility] 04-05-2018 - [id number] [facility] 04-05-2018 [place] ([id number]) Goals No Information Social History The data below is from unstructured sources History Response Recorde d Date/Time Alcohol Use Occasionally Uses 09/15/12 12:13pm Recreational Drug Use N 09/15/12 12:13pm Functional Status The data below is from unstructured sourcesNo functional status results.No functional status results.No functional status results.No functional status results.No functional status results.No functional status results.No functional status results.No functional status results.No functional status results.No functional status information available.No functional status information available.No functional status results.No functional status res ults.No functional status results.No functional status results.No functional sta tus results.No functional status results.No functional status results.No functio nal status results.No functional status results.No functional status results.No functional status results.No functional status results.No functional status info rmation available.No functional status information available.No functional statu s information available.No functional status information available.No functional status information available.No functional status information available.No func tional status information available.No functional status information available.N o functional status information available.No functional status information avail able.No functional status information available.No functional status information available.No functional status information available.No functional status infor mation available. Mental Status No Information Encounters Encounter Normalized Encounter Encounter Diagnosis Care Provi flynn Organization Date Type 03-26-2019 Emergency department no information ANGIE RUSSO IN [facility] [address] - patient visit (no phone) [facility] 03-26-2019 (no phone) 01-21-2019 Emergency department no information no name (no mary ne) no organization name - patient visit (no phone) 01-21-2019 06-14-2018 Emergency department no information SOCO Matthews APRN BA D[facility] no organization name - patient visit Work Phone: (no phone) 06-14-2018 03-21-2018 Emergency department no information SOCO Matthews APRN [facility] no organization name - patient visit Work Phone: (no phone) 03-21-2018 03-17-2018 Emergency department no information KEYONNA Yisel ARMANINOMRA INS no organization name - patient visit Work Phone: (no phone) 03-17-2018 KEYONNA Yisel CHEFORNAK 10-02-2017 Emergency department no information MYAH OLIVAS Work no organization name - patient visit (no phone ) 10-02-2017 09-01-2017 Emergency department no information JENNIFER Pena k no organization name - patient visit (no phone ) 09-01-2017 06-14-2017 Emergency department no information no name (no mary ne) no organization name - patient visit (no phone) 06-14-2017 06-11-2017 Emergency department no information no name (no mary ne) no organization name - patient visit (no phone) 06-11-2017 08-14-2016 Emergency department no information no name (no mary ne) no organization name - patient visit (no phone) 08-14-2016 04-15-2011 Emergency department no information no name (no mary ne) no organization name - patient visit (no phone) 04-16-2011 12-08-2017 Patient encounter no information no name (no phone) no organization name (no phone) 10-27-2017 Patient encounter no information no name (no phone) no organization name (no phone) 10-11-2017 Patient encounter no information no name (no phone) no organization name (no phone) NEGATED Patient encounter no information no name (no phone) no organization name 09-16-2017 (no phone) 09-15-2017 Patient encounter no information no name (no phone) no organization name (no phone) 09-14-2017 Patient encounter no information no name (no phone) no organization name (no phone) 09-01-2017 Patient encounter no information no name (no phone) no organization name (no phone) 08-04-2017 Patient encounter no information no name (no phone) no organization name (no phone) 07-13-2017 Patient encounter no information no name (no phone) no organization name (no phone) NEGATED Patient encounter no information no name (no phone) no organization name 07-09-2017 (no phone) 07-02-2017 Patient encounter no information no name (no phone) no organization name (no phone) 06-14-2017 Patient encounter no information no name (no phone) no organization name (no phone) 06-14-2017 Patient encounter no information no name (no phone) no organization name (no phone) 06-02-2017 Patient encounter no information no name (no phone) no organization name (no phone) 05-26-2017 Patient encounter no information no name (no phone) no organization name (no phone) 05-18-2017 Patient encounter no information no name (no phone) no organization name (no phone) 05-13-2017 Patient encounter no information no name (no phone) no organization name (no phone) 04-23-2017 Patient encounter no information no name (no phone) no organization name (no phone) 04-19-2017 Patient encounter no information no name (no phone) no organization name (no phone) 10-28-2016 Patient encounter no information no name (no phone) no organization name - (no phone) 10-28-2016 06-25-2016 Patient encounter no information no name (no phone) no organization name - (no phone) 07-15-2016 05-01-2016 Patient encounter no information no name (no phone) no organization name - (no phone) 05-01-2016 12-04-2015 Patient encounter no information no name (no phone) no organization name (no phone) 09-19-2014 Patient encounter no information no name (no phone) no organization name - (no phone) 09-19-2014 03-28-2013 Patient encounter no information no name (no phone) no organization name (no phone) 06-15-2019 Patient encounter no information BEVERLY S AISLINN ( no [facility] procedure phone) [facility] (no phone) 06-13-2019 Patient encounter no information BEVERLY S AISLINN ( no [facility] procedure phone) [facility] (no phone) 06-11-2019 Patient encounter no information BEVERLY S AISLINN ( no [facility] procedure phone) [facility] (no phone) 05-26-2019 Patient encounter no information BEVERLY S AISLINN ( no [facility] procedure phone) [facility] (no phone) 05-15-2019 Patient encounter no information (no phone) [facility] procedure [facility] (no phone) 04-18-2019 Patient encounter no information no name (no phone) no organization name procedure (no phone) 03-26-2019 Patient encounter no information no name (no phone) no organization name procedure (no phone) 03-24-2019 Patient encounter no information no name (no phone) no organization name procedure (no phone) 03-20-2019 Patient encounter no information no name (no phone) no organization name procedure (no phone) 03-14-2019 Patient encounter no information no name (no phone) no organization name procedure (no phone) 02-06-2019 Patient encounter no information no name (no phone) no organization name procedure (no phone) 02-02-2019 Patient encounter no information no name (no phone) no organization name procedure (no phone) 01-21-2019 Patient encounter no information no name (no phone) no organization name procedure (no phone) 01-20-2019 Patient encounter no information no name (no phone) no organization name procedure (no phone) 11-30-2018 Patient encounter no information no name (no phone) no organization name procedure (no phone) 11-30-2018 Patient encounter no information no name (no phone) no organization name procedure (no phone) 11-24-2018 Patient encounter no information no name (no phone) no organization name procedure (no phone) 11-15-2018 Patient encounter no information no name (no phone) no organization name procedure (no phone) 11-10-2018 Patient encounter no information no name (no phone) no organization name procedure (no phone) 11-03-2018 Patient encounter no information no name (no phone) no organization name procedure (no phone) 11-03-2018 Patient encounter no information no name (no phone) no organization name procedure (no phone) 11-01-2018 Patient encounter no information no name (no phone) no organization name procedure (no phone) 10-26-2018 Patient encounter no information no name (no phone) no organization name procedure (no phone) 10-23-2018 Patient encounter no information no name (no phone) no organization name procedure (no phone) 10-20-2018 Patient encounter no information no name (no phone) no organization name procedure (no phone) 10-10-2018 Patient encounter no information no name (no phone) no organization name procedure (no phone) 10-06-2018 Patient encounter no information no name (no phone) no organization name procedure (no phone) 09-27-2018 Patient encounter no information no name (no phone) no organization name procedure (no phone) 09-20-2018 Patient encounter no information no name (no phone) no organization name procedure (no phone) 09-16-2018 Patient encounter no information no name (no phone) no organization name procedure (no phone) 09-06-2018 Patient encounter no information no name (no phone) no organization name procedure (no phone) 09-05-2018 Patient encounter no information no name (no phone) no organization name procedure (no phone) 08-30-2018 Patient encounter no information no name (no phone) no organization name procedure (no phone) 08-24-2018 Patient encounter no information no name (no phone) no organization name procedure (no phone) 08-24-2018 Patient encounter no information no name (no phone) no organization name procedure (no phone) 07-21-2018 Patient encounter no information no name (no phone) no organization name procedure (no phone) 07-08-2018 Patient encounter no information no name (no phone) no organization name procedure (no phone) 07-05-2018 Patient encounter no information no name (no phone) no organization name procedure (no phone) 06-15-2018 Patient encounter no information no name (no phone) no organization name procedure (no phone) 06-14-2018 Patient encounter no information no name (no phone) no organization name procedure (no phone) 06-01-2018 Patient encounter no information no name (no phone) no organization name procedure (no phone) 05-05-2018 Patient encounter no information no name (no phone) no organization name procedure (no phone) 05-03-2018 Patient encounter no information no name (no phone) no organization name procedure (no phone) 04-13-2018 Patient encounter no information no name (no phone) no organization name procedure (no phone) 04-12-2018 Patient encounter no information no name (no phone) no organization name procedure (no phone) 04-05-2018 Patient encounter no information no name (no phone) no organization name procedure (no phone) 03-25-2018 Patient encounter no information no name (no phone) no organization name procedure (no phone) 03-21-2018 Patient encounter no information no name (no phone) no organization name procedure (no phone) 03-18-2018 Patient encounter no information no name (no phone) no organization name procedure (no phone) 03-17-2018 Patient encounter no information no name (no phone) no organization name procedure (no phone) 03-15-2018 Patient encounter no information no name (no phone) no organization name procedure (no phone) 03-07-2018 Patient encounter no information no name (no phone) no organization name procedure (no phone) 02-28-2018 Patient encounter no information no name (no phone) no organization name procedure (no phone) 10-23-2016 Patient encounter no information no name (no phone) no organization name procedure (no phone) 10-15-2016 Patient encounter no information no name (no phone) no organization name procedure (no phone) 10-14-2016 Patient encounter no information no name (no phone) no organization name procedure (no phone) 10-08-2016 Patient encounter no information no name (no phone) no organization name procedure (no phone) 10-06-2016 Patient encounter no information no name (no phone) no organization name procedure (no phone) 09-23-2016 Patient encounter no information no name (no phone) no organization name procedure (no phone) 09-18-2016 Patient encounter no information no name (no phone) no organization name procedure (no phone) 06-18-2016 Patient encounter no information no name (no phone) no organization name procedure (no phone) 06-16-2016 Patient encounter no information no name (no phone) no organization name procedure (no phone) 06-12-2016 Patient encounter no information no name (no phone) no organization name procedure (no phone) 06-08-2016 Patient encounter no information no name (no phone) no organization name procedure (no phone) 06-05-2016 Patient encounter no information no name (no phone) no organization name procedure (no phone) 06-02-2016 Patient encounter no information no name (no phone) no organization name procedure (no phone) 06-02-2016 Patient encounter no information no name (no phone) no organization name procedure (no phone) 04-29-2016 Patient encounter no information no name (no phone) no organization name procedure (no phone) 04-24-2016 Patient encounter no information no name (no phone) no organization name procedure (no phone) 04-22-2016 Patient encounter no information no name (no phone) no organization name procedure (no phone) 04-17-2016 Patient encounter no information no name (no phone) no organization name procedure (no phone) 04-14-2016 Patient encounter no information no name (no phone) no organization name procedure (no phone) 04-09-2016 Patient encounter no information no name (no phone) no organization name procedure (no phone) 04-07-2016 Patient encounter no information no name (no phone) no organization name procedure (no phone) 04-02-2016 Patient encounter no information no name (no phone) no organization name procedure (no phone) 03-31-2016 Patient encounter no information no name (no phone) no organization name procedure (no phone) 04-07-2012 Patient encounter no information no name (no phone) no organization name procedure (no phone) 06-10-2011 Patient encounter no information no name (no phone) no organization name procedure (no phone) 06-05-2011 Patient encounter no information no name (no phone) no organization name procedure (no phone) Patient encounter no information no name (no phone) no organ ization name procedure (no phone) no information Encounter for dental no name (no phone) no or ganization name examination and (no phone) cleaning without abnormal findings Medical Equipment Equipment Code (if Equipment Original Equipment Identifier P rocedure Code (if Dates provided) Text (if provided) (if provided) provided) no information as directed for use no information (no no inform ation 08-20-2017 with Victoza and named assigning Novolog Pens authority) no information test blood sugar no information (no no informati on 09-01-2016 named assigning authority) no information as directed for use no information (no no inform ation 08-20-2017 with Victoza and named assigning Novolog Pens authority) no information test blood sugar no information (no no informati on 09-01-2016 named assigning authority) no information as directed for use no information (no no inform ation 08-20-2017 with Victoza and named assigning Novolog Pens authority) no information test blood sugar no information (no no informati on 09-01-2016 named assigning authority) no information as directed for use no information (no no inform ation 08-20-2017 with Victoza and named assigning Novolog Pens authority) no information test blood sugar no information (no no informati on 09-01-2016 named assigning authority) Payers The data below is from unstructured sources Payer Name Policy Number Subscriber Name Relationship Self Pay lEizabeth Sloan F 01 Self / Same As Patient History general Narrative - Reported Note Type Note Facility History general Narrative - Reported Type Medical Hypokalemia History Medical Hypomagnesium History Medical type II diabetes - uncontro lled History Medical hypertension History Medical umbilical hernia History Medical Arthritis History Medical back pain History Medical depression History Medical headache History Medical bipolar disorder History Medical anxiety History Medical MRSA History Surgical carpal tunnel surgery History Surgical section History Surgical back surgery Laminectomy - Ortho 4 Stat es 10/04/2014 History Surgical Pain shot in lower back -Dr. Sheehan History Hospitaliz surgery ation History [facility] ([id number]) Summary Purpose eClinicalWorks SubmissioneClinicalWorks SubmissioneClinicalWorks SubmissioneClinicalWorks SubmissioneClinicalWorks SubmissioneClinicalWorks SubmissioneClinicalWorks SubmissioneClinicalWorks SubmissioneClinicalWorks SubmissioneClinicalWorks SubmissioneClinicalWorks SubmissioneClinicalWorks SubmissioneClinicalWorks SubmissioneClinicalWorks SubmissioneClinicalWorks SubmissioneClinicalWorks SubmissioneClinicalWorks SubmissioneClinicalWorks SubmissioneClinicalWorks SubmissioneClinicalWorks SubmissioneClinicalWorks SubmissioneClinicalWorks SubmissioneClinicalWorks SubmissioneClinicalWorks SubmissioneClinicalWorks SubmissioneClinicalWorks SubmissioneClinicalWorks SubmissioneClinicalWorks SubmissioneClinicalWorks SubmissioneClinicalWorks SubmissioneClinicalWorks SubmissioneClinicalWorks Submission Advance Directives Directive Response Recor ded Date/Time Advance Directives No 3:09pm Health Care Power of Sheet Cutter No 11/12/15 3:09pm Organ Donor No 11/12/15 3:09pm Resuscitation Status Full Code 11/12/15 3:09pm Directive Response Recor ded Date/Time Advance Directives No 3:25pm Health Care Power of Sheet Cutter No 03/04/16 3:25pm Organ Donor No 03/04/16 3:25pm Resuscitation Status Full Code 03/04/16 3:25pm Directive Response Recor ded Date/Time Advance Directives No 8:43am Health Care Power of Sheet Cutter No 03/20/16 8:43am Organ Donor No 03/20/16 8:43am Resuscitation Status Full Code 03/20/16 8:43am Directive Response Recor ded Date/Time Advance Directives No 8:43am Health Care Power of Sheet Cutter No 03/20/16 8:43am Organ Donor No 03/20/16 8:43am Directive Response Recor ded Date/Time Advance Directives No 11:53am Health Care Power of Sheet Cutter No 06/02/16 11:53am Organ Donor No 06/02/16 11:53am Resuscitation Status Full Code 06/02/16 11:53am Directive Response Recor ded Date/Time Advance Directives No 11:53am Health Care Power of Sheet Cutter No 06/02/16 11:53am Organ Donor No 06/02/16 11:53am Directive Response Recor ded Date/Time Advance Directives No 11:06am Health Care Power of Sheet Cutter No 08/23/15 11:06am Organ Donor No 08/23/15 11:06am Resuscitation Status Full Code 08/23/15 11:06am Directive Response Recor ded Date/Time Advance Directives No 8:37pm Health Care Power of Sheet Cutter No 06/06/15 8:37pm Organ Donor No 06/06/15 8:37pm Resuscitation Status Full Code 06/06/15 8:37pm Directive Response Recor ded Date/Time Advance Directives No 1:01pm Health Care Power of Sheet Cutter No 03/17/14 1:01pm Organ Donor No 03/17/14 1:01pm Directive Response Recor ded Date/Time Advance Directives No 11:28am Health Care Power of Sheet Cutter No 10/28/13 11:28am Organ Donor No 10/28/13 11:28am Resuscitation Status Full Code 10/28/13 11:28am Directive Response Recor ded Date/Time Advance Directives No 1:01pm Health Care Power of Sheet Cutter No 03/17/14 1:01pm Organ Donor No 03/17/14 1:01pm Resuscitation Status Full Code 03/17/14 1:01pm Directive Response Recor ded Date Advance Directives N 12:13pm Health Care Power of Sheet Cutter N 09/15/12 12:13pm Organ Donor N 09/15/12 1 2:13pm Directive Response Recor ded Date/Time Advance Directives No 2:28pm Health Care Power of Sheet Cutter No 12/18/13 2:28pm Organ Donor No 12/18/13 2:28pm Resuscitation Status Full Code 12/18/13 2:28pm Directive Response Recor ded Date/Time Advance Directives No 11:01am Health Care Power of Sheet Cutter No 08/14/16 11:01am Organ Donor No 08/14/16 11:01am Directive Response Recor ded Date/Time Advance Directives No 1:31am Health Care Power of Sheet Cutter No 05/13/17 1:31am Organ Donor No 05/13/17 1:31am Resuscitation Status Full Code 05/13/17 1:31am Directive Response Recor ded Date/Time Advance Directives No 6:37pm Health Care Power of Sheet Cutter No 06/14/17 10:00pm Organ Donor No 06/14/17 10:00pm Resuscitation Status Full Code 09/01/17 6:37pm Directive Response Recor ded Date/Time Advance Directives No 10:03am Health Care Power of Sheet Cutter No 10/02/17 10:03am Organ Donor No 10/02/17 10:03am Resuscitation Status Full Code 10/02/17 10:03am Directive Response Recor ded Date/Time Advance Directives No 9:33am Health Care Power of Sheet Cutter No 03/17/18 9:33am Organ Donor No 03/17/18 9:33am Resuscitation Status Full Code 03/17/18 9:33am Directive Response Recor ded Date/Time Advance Directives No 11:15am Health Care Power of Sheet Cutter No 03/17/18 9:33am Organ Donor No 03/17/18 9:33am Resuscitation Status Full Code 03/21/18 11:15am Directive Response Recor ded Date/Time Advance Directives No 2:28pm Health Care Power of Sheet Cutter No 06/14/18 2:28pm Organ Donor No 06/14/18 2:28pm Resuscitation Status Full Code 06/14/18 2:28pm Discharge Instructions No hospital discharge instructions.No hospital discharge instructions.No hospital discharge instructions.No hospital discharge instructions.No hospital discharge instructions.No hospital discharge instruction information available.No hospital discharge instructions.No hospital discharge instructions.No hospital discharge instructions.No hospital discharge instructions.No hospital discharge instructions.No hospital discharge instructions.No hospital discharge instruction information available.No hospital discharge instruction information available.No hospital discharge instruction information available.No hospital discharge instruction information available.No hospital discharge instruction information available.No hospital discharge instruction information available.No hospital discharge instruction information available. Chief Complaint and Reason for Visit Chief Complaint Abdominal/GI Problem s Reason for Visit [id number] Moderate nausea Uncontrolled diabetes mellitus with hyperglycemia, with long-term current use of insulin Chief Complaint Abdominal/GI Problem s Reason for Visit Urinary tract infec tion Nausea and vomiting Chief Complaint Cough/Cold/Flu Sympt oms Reason for Visit Bronchitis Additional Source Comments This clinical document has been generated using [employer] software that has been certified by the Office of the National Coordinator for Health Information Technology (ONC 15.99.04.3023.Diam.[id number]) and the National Committee for [employer] (NCQA, as an eMeasure certified technology). FOR RECORDS PERTAINING TO PATIENTS WHO ARE OR HAVE BEEN ENROLLED IN A CHEMICAL D EPENDENCY/SUBSTANCE ABUSE PROGRAM, SOME INFORMATION MAY BE OMITTED. This clinica l summary was aggregated from multiple sources. Caution should be exercised in using it in the provision of clinical care. This summary normalizes information from multiple sources, and as a consequence, information in this document may ma terially change the coding, format and clinical context of patient data. In efra tion, data may be omitted in some cases. CLINICAL DECISIONS SHOULD BE BASED ON T HE PRIMARY CLINICAL RECORDS. [employer] provides no warranty or guara ntee of the accuracy or completeness of information in this document.The followi information is based on time limited clinical information UNRECOGNIZED CONTENT PROVIDED BELOW FOR UNRECOGNIZED SECTION MEDICAL (GENERAL) HISTORY Type Description Date Medical History Hypokalemia Medical History Hypomagnesium Medical History type II diabetes - u ncontrolled Medical History hypertension Medical History umbilical hernia Medical History Arthritis Medical History back pain Medical History depression Medical History headache Medical History bipolar disorder Medical History anxiety Medical History MRSA Surgical History carpal tunnel surgery Surgical History section Surgical History back surgery [place] ctomy - [facility] 10/04/2014 Surgical History Pain shot in lower back -Dr. Sheehan 08/23/15 Hospitalization History surgery UNRECOGNIZED CONTENT PROVIDED BELOW FOR UNRECOGNIZED SECTION REASON FOR VISIT ER f/u, PT reports [facility] (unsure of the date) due to pain on he r right side of her mouth from either a filling or possible gum irritation. PT w as given antibitoics and is almost done with them -Shashi CROOKS f/uIpro comple tionDiabetes Pt in for [facility] f/uLab (walk-in) f/uBH f/u- AB/ MAMedication questionDiabetesMedication Side EffectsBH f/uBH f/uDiabetes Catherine Trevino Pt in for diarrhea, states she has had this since September, also c/o ab dominal pain. GLEN TrevinoOOKDI-PnaJYZ-YvvHKO-WpoIYY-TljXZH-VjlUF f/nVEQ-JwyXKX-Mtx TMJ-MwxNVL-JqyTLO-Julio
--- OUTSIDE RECORDS SUMMARY | 2019-06-22 19:33 | XMS REPORT ---
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.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 Active 304914802 Problem Diabetes E11.9 Active 012830597 Problem Type 2 diabetes mellitus with complication E11.8 Active 776526578 Problem Post laminectomy syndrome M96.1 Acti ve 01324227 Problem Bipolar 1 disorder F31.9 Active 3 88571765 Problem New daily persistent headache G44.52 Active 897664772 Problem Type 2 diabetes mellitus with hyperglycemia E11.65 Active 16453925 Problem Other chronic pain G89.29 Active 8 5456114 Problem Essential hypertension I10 Active 24936140 Problem Acute bilateral low back pain with right-sided sciatica M54.41 Active 877943467 Problem Bipolar disorder, in partial remission, most rec ent episode manic F31.73 Active 70180062 Problem Seasonal allergic rhinitis due to pollen J30.1 Active 64555260 Problem Hyperlipidemia, unspecified E78.5 Ac tive 19801512 Problem Eye exam normal Z01.00 Active 2438 27912 Problem Extreme poverty Z59.5 Active 1140 3006 Problem Lumbago with sciatica, left side M54.42 Active 539927570 Problem Hypertriglyceridemia E78.1 Active 571995241 Problem Insulin long-term use Z79.4 Active 142599842 Problem Rhinosinusitis J32.9 Active 81453 000 ALLERGIES No Information ENCOUNTERS Encounter Location Date Diagnosis [place] [id number] [place] [address] 08 Aug, 2019 [facility] [address] [address] 16 Jun, 2019 [facility] [address] [address] 07 Jun, 2019 [place] [address] [address] 02 Jun, 2019 [facility] [address] [address] 26 May, 2019 [place] [address] [address] 19 May, 2019 Spinal stenosis of lumbar region without neurogenic claudication M48.061 ; Segmental dysfunction of thoracic region M99.02 ; Segmental dysfunction of lumbar region M99.03 and Segmental dysfunction of sacral region M99.04 [place] [address] [address] 19 May, 2019 [place] [address] [address] May, Borderline intellectual functioning R41. 83 and Bipolar disorder, in partial remission, most recent episode manic F31.73 [place] [id number] [place] [address] 17 May, 2019 [facility] [address] [facility] [id number] [address] [place] [address] 15 May, 2019 Diarrhea, unspecified type R 19.7 [place] [address] [id number] [place] [address] 09 May, 2019 Borderline intellectual functioning R41. 83 [place] [address] [address] 09 May, 2019 Type 2 diabetes mellitus with complicati on E11.8 [place] [address] [address] 09 May, 2019 Bipolar 1 disorder F31.9 ; Type 2 diabet es mellitus with complication E11.8 ; Pain of right thumb M79.644 ; Extreme poverty Z59.5 and Low back pain M54.5 [facility] [address] [address] May, [facility] [address] [address] 28 Apr, 2019 Bipolar 1 disorder F31.9 ; Borderline in tellectual functioning R41.83 and Extreme poverty Z59.5 [facility] [address] [facility] [id number] [address] [place] [address] Apr, Seasonal allergic rhinitis d ue to pollen J30.1 [place] [address] [address] Apr, Essential hypertension I10 and Diabetes E11.9 [place] [address] [address] Apr, [place] [address] [address] Mar, Bipolar 1 disorder F31.9 ; Borderline in tellectual functioning R41.83 and Extreme poverty Z59.5 [place] [address] [address] Mar, Exercise counseling Z71.82 [place] [address] [address] Mar, [place] [address] [address] Mar, Bipolar disorder, in partial remission, most recent episode manic F31.73 and 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 [place] [address] [address] Mar, [place] [address] [address] Mar, Exercise counseling Z71.82 [place] [address] [address] Feb, Bipolar 1 disorder F31.9 ; Borderline in tellectual functioning R41.83 and Extreme poverty Z59.5 [facility] [address] [address] Feb, [facility] [address] [address] Feb, Type 2 diabetes mellitus with complicati on E11.8 [facility] [address] [facility] [id number] [address] [place] [address] Feb, Acute low back pain without sciatica, unspecified back pain laterality M54.5 [facility] [address] [address] Feb, Bipolar 1 disorder F31.9 ; Borderline in tellectual functioning R41.83 and Extreme poverty Z59.5 [facility] [address] [address] Jan, Bipolar 1 disorder F31.9 ; Borderline in tellectual functioning R41.83 and Extreme poverty Z59.5 [facility] [address] [address] Jan, [facility] [address] [address] Jan, Type 2 diabetes mellitus with complicati on E11.8 [facility] [address] [address] Jan, Type 2 diabetes mellitus with complicati on E11.8 ; Dysuria R30.0 and Diarrhea, unspecified type R19.7 [facility] [address] [address] Jan, Bipolar 1 disorder F31.9 ; Borderline in tellectual functioning R41.83 and Extreme poverty Z59.5 [facility] [address] [address] Dec, [facility] [address] [address] Dec, [facility] [address] [address] Dec, [facility] [address] [address] Dec, [facility] [address] [address] Dec, Rhinosinusitis J32.9 [facility] [address] [address] Dec, [facility] [address] [address] Dec, Bipolar 1 disorder F31.9 ; Borderline in tellectual functioning R41.83 and Extreme poverty Z59.5 [facility] [address] [address] Dec, Type 2 diabetes mellitus with complicati on E11.8 and Type 2 diabetes mellitus with hyperglycemia E11.65 [place] [address] [address] Dec, [place] [address] [address] Dec, Type 2 diabetes mellitus with complicati on E11.8 ; Insulin long-term use Z79.4 ; Hyperglycemia R73.9 and Yeast infection B37.9 [facility] [address] [address] Dec, Encounter for immunization Z23 [facility] [address] [address] Nov, [place] [address] [address] Nov, Bipolar 1 disorder F31.9 ; Borderline in tellectual functioning R41.83 and Extreme poverty Z59.5 [facility] [address] [address] Nov, [facility] [address] [address] Nov, [facility] [address] [address] Nov, Borderline intellectual functioning R41. 83 and Bipolar disorder, in partial remission, most recent episode manic F31.73 [facility] [address] [place] [id number] [place] [address] Nov, Epigastric abdominal pain R1 0.13 [facility] [address] [address] Nov, Bipolar 1 disorder F31.9 ; Borderline in tellectual functioning R41.83 and Extreme poverty Z59.5 [facility] [place] [id number] [place] [address] Oct, Dysuria R30.0 and Acute cyst itis without hematuria N30.00 [facility] [address] [place] [id number] [place] [address] Oct, [facility] [address] [address] Oct, [place] [address] [address] Oct, Bipolar 1 disorder F31.9 ; Borderline in tellectual functioning R41.83 and Extreme poverty Z59.5 [place] [address] [address] Oct, [facility] [address] [address] Oct, [facility] [address] [address] Oct, Bipolar disorder, in partial remission, most recent episode manic F31.73 and 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 [facility] [address] [address] Oct, Bipolar 1 disorder F31.9 ; Borderline in tellectual functioning R41.83 and Extreme poverty Z59.5 [facility] [address] [id number] [place] [address] Oct, Diarrhea, unspecified type R19.7 [facility] [address] [facility] [id number] [place] [id number] Sep, Dental examination Z01.20 and Dental car ies K02.9 [facility] [address] [facility] [id number] [address] [place] [address] Sep, Mouth pain K13.79 [facility] [id number] [place] [address] Sep, [facility] [address] [address] Sep, Bipolar 1 disorder F31.9 ; Borderline in tellectual functioning R41.83 and Extreme poverty Z59.5 [facility] [id number] [place] [address] Sep, [facility] [id number] [place] [address] Sep, [facility] [address] [address] Sep, Diabetes E11.9 ; Hyperglycemia R73.9 ; L eliseo term current use of insulin Z79.4 and Diarrhea, unspecified type R19.7 [facility] [id number] [place] [address] Sep, [facility] [address] [address] Sep, Bipolar 1 disorder F31.9 ; Borderline in tellectual functioning R41.83 and Extreme poverty Z59.5 [facility] [address] [address] Sep, [facility] [address] [address] Sep, [facility] [address] [address] Aug, Bipolar 1 disorder F31.9 ; Borderline in tellectual functioning R41.83 and Extreme poverty Z59.5 [place] [address] [address] Aug, Exercise counseling Z71.82 [facility] [address] [address] Aug, Bipolar 1 disorder F31.9 ; Borderline in tellectual functioning R41.83 and Extreme poverty Z59.5 [facility] [address] [address] Aug, Borderline intellectual functioning R41. 83 and Bipolar disorder, in partial remission, most recent episode manic F31.73 [place] [address] [address] Aug, Low back pain M54.5 [place] [address] [address] Aug, Borderline intellectual functioning R41. 83 and Bipolar disorder, in partial remission, most recent episode manic F31.73 [place] [address] [address] July, Acute superficial gastritis without hemo rrhage K29.00 ; Low back pain M54.5 and Other chronic pain G89.29 [facility] [id number] [place] [address] July, [facility] [address] [address] July, [facility] [id number] [place] [address] Jun, [facility] [address] [facility] [id number] [address] [place] [address] Jun, Bilateral lower extremity ed pei R60.0 [facility] [address] [id number] [place] [address] Jun, Borderline intellectual functioning R41. 83 and Bipolar disorder, in partial remission, most recent episode manic F31.73 [facility] [address] [address] 03 Jun, 2018 [place] [address] [address] 20 May, 2018 Bronchitis J40 [place] [address] [address] 14 May, 2018 Screening for breast cancer Z12.31 and E ncounter for immunization Z23 [place] [address] [address] 06 May, 2018 Bipolar 1 disorder F31.9 ; Borderline in tellectual functioning R41.83 and Extreme poverty Z59.5 [place] [address] [address] 11 Apr, 2018 [place] [address] [address] 07 Apr, 2018 Bipolar 1 disorder F31.9 ; Borderline in tellectual functioning R41.83 and Extreme poverty Z59.5 [place] [address] [address] 05 Apr, 2018 Irritable bowel syndrome with diarrhea K 58.0 and Dental abscess K04.7 [place] [address] [address] Mar, [place] [address] [address] Mar, [place] [address] [address] 16 Mar, 2018 Bipolar 1 disorder F31.9 ; Borderline in tellectual functioning R41.83 and Extreme poverty Z59.5 [place] [address] [address] Mar, Hypertriglyceridemia E78.1 [place] [address] [address] 08 Mar, 2018 Borderline intellectual functioning R41. 83 and Bipolar disorder, in partial remission, most recent episode manic F31.73 [place] [address] [address] [address] Mar, Bipolar 1 disorder F31.9 ; Borderline in tellectual functioning R41.83 and Extreme poverty Z59.5 [place] [address] [address] Feb, Generalized abdominal pain R10.84 and Di arrhea, unspecified type R19.7 [place] [address] [address] Feb, [place] [address] [place] [address] [address] Feb, Myalgia M79.10 and Nausea R11.0 [place] [address] [address] Feb, Bipolar 1 disorder F31.9 ; Borderline in tellectual functioning R41.83 and Extreme poverty Z59.5 [place] [address] [address] Feb, [place] [address] [address] Feb, Diabetes E11.9 ; Hyperglycemia R73.9 and Diarrhea, unspecified R19.7 [place] [address] [address] Feb, Diarrhea, unspecified type R19.7 ; Abdom inal pain R10.9 and Encounter for immunization Z23 [place] [address] [address] Jan, Bipolar 1 disorder F31.9 ; Borderline in tellectual functioning R41.83 and Extreme poverty Z59.5 [place] [address] [address] Dec, Bipolar 1 disorder F31.9 ; Borderline in tellectual functioning R41.83 and Extreme poverty Z59.5 [place] [address] [address] 24 Nov, 2017 [place] [address] [address] Nov, Hypertriglyceridemia E78.1 [place] [address] [address] 20 Nov, 2017 Bipolar 1 disorder F31.9 ; Borderline in tellectual functioning R41.83 and Extreme poverty Z59.5 [place] [address] [address] 18 Nov, 2017 Type 2 diabetes mellitus with complicati on E11.8 [place] [address] [address] Nov, Borderline intellectual functioning R41. 83 and Bipolar disorder, in partial remission, most recent episode manic F31.73 [place] [address] [address] Nov, Type 2 diabetes mellitus with complicati on E11.8 [place] [address] [address] Nov, Bipolar 1 disorder F31.9 ; Borderline in tellectual functioning R41.83 and Extreme poverty Z59.5 [place] [address] [address] Nov, Type 2 diabetes mellitus with complicati on E11.8 ; Pain of left upper arm M79.622 ; Pain in right upper arm M79.621 ; Hyperglycemia R73.9 ; Lumbago with sciatica, left side M54.42 and Other chronic pain G89.29 [place] [address] [address] Oct, Bipolar 1 disorder F31.9 ; Borderline in tellectual functioning R41.83 and Extreme poverty Z59.5 [place] [address] [address] Oct, Type 2 diabetes mellitus with hyperglyce didi E11.65 ; correction current use of insulin Z79.4 and Other acute gastritis without hemorrhage K29.00 [place] [address] [address] Oct, Bipolar 1 disorder F31.9 ; Borderline in tellectual functioning R41.83 and Extreme poverty Z59.5 [place] [address] [address] Sep, Diarrhea, unspecified R19.7 and Vomiting , unspecified R11.10 [place] [address] [address] Aug, Type 2 diabetes mellitus with complicati on E11.8 [place] [address] [address] Aug, [place] [address] [address] Aug, Bipolar 1 disorder F31.9 ; Borderline in tellectual functioning R41.83 and Extreme poverty Z59.5 [place] [address] [address] Aug, Borderline intellectual functioning R41. 83 and Bipolar disorder, in partial remission, most recent episode manic F31.73 [place] [address] [address] Aug, Bipolar 1 disorder F31.9 [place] [address] [address] Aug, [place] [address] [address] Aug, [place] [address] [address] Aug, Bipolar 1 disorder F31.9 ; Borderline in tellectual functioning R41.83 and Extreme poverty Z59.5 [place] [address] [address] July, Type 2 diabetes mellitus with complicati on E11.8 [place] [address] [address] July, Bipolar 1 disorder F31.9 ; Borderline in tellectual functioning R41.83 and Extreme poverty Z59.5 [place] [address] [place] [address] [id number] Jun, Bipolar 1 disorder F31.9 ; Borderline in tellectual functioning R41.83 and Extreme poverty Z59.5 [place] [address] [address] Jun, Bipolar 1 disorder F31.9 ; Borderline in tellectual functioning R41.83 and Extreme poverty Z59.5 [place] [address] [address] Jun, Bipolar 1 disorder F31.9 ; Borderline in tellectual functioning R41.83 and Extreme poverty Z59.5 [place] [address] [address] May, Urinary tract infection without hematuri a, site unspecified N39.0 [place] [address] [address] May, Bipolar 1 disorder F31.9 ; Borderline in tellectual functioning R41.83 and Extreme poverty Z59.5 [place] [address] [address] Apr, Diabetes E11.9 and Breast cancer screeni ng Z12.31 [place] [address] [address] Apr, Bipolar 1 disorder F31.9 and 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 [place] [address] [address] Mar, Bipolar 1 disorder F31.9 ; Borderline in tellectual functioning R41.83 and Extreme poverty Z59.5 [place] [address] [address] Mar, New daily persistent headache G44.52 ; L eg pain 729.5 and History of carpal tunnel release Z98.890 [place] [address] [address] Mar, Hyperlipidemia, unspecified E78.5 [place] [address] [address] Mar, Bipolar 1 disorder F31.9 ; Borderline in tellectual functioning R41.83 and Extreme poverty Z59.5 [place] [address] [address] Feb, Bipolar 1 disorder F31.9 ; Borderline in tellectual functioning R41.83 and Extreme poverty Z59.5 [place] [address] [address] Feb, Diabetes E11.[address] [address] Feb, Viral syndrome B34.9 [place] [address] [address] Jan, Other viral agents as the cause of disea ses classified elsewhere B97.89 and Acute upper respiratory infection, unspecified J06.9 [place] [address] [address] Jan, Bipolar 1 disorder F31.9 and 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 [place] [address] [address] Jan, Bipolar 1 disorder F31.9 ; Borderline in tellectual functioning R41.83 and Extreme poverty Z59.5 [place] [address] [address] Dec, Diabetes E11.9 [place] [address] [address] Dec, Diabetes E11.9 and Encounter for immuniz ation Z23 [address] [address] Dec, Bipolar 1 disorder F31.9 ; Borderline in tellectual functioning R41.83 and Extreme poverty Z59.5 [facility] [id number] [place] [address] Dec, Back pain M54.9 [facility] [id number] [place] [address] Nov, [facility] [address] [address] Nov, Bipolar 1 disorder F31.9 ; Borderline in tellectual functioning R41.83 and Extreme poverty Z59.5 [place] [address] [address] Nov, Bipolar 1 disorder F31.9 ; Borderline in tellectual functioning R41.83 and Extreme poverty Z59.5 [place] [address] [address] Oct, Borderline intellectual functioning R41. 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 and Bipolar 1 disorder F31.9 [place] [address] [address] Sep, Bipolar 1 disorder F31.9 ; Borderline in tellectual functioning R41.83 and Extreme poverty Z59.5 [place] [address] [address] Aug, Diabetes E11.9 ; Hyperlipidemia, unspeci fied E78.5 and Lumbar radiculopathy M54.16 [place] [address] [address] Aug, Bipolar 1 disorder F31.9 ; Borderline in tellectual functioning R41.83 and Extreme poverty Z59.5 [place] [address] [address] Aug, [place] [address] [address] Aug, [place] [address] [address] Aug, [place] [address] [address] July, [place] [address] [address] July, Acute bilateral low back pain with right -sided sciatica M54.41 [place] [address] [address] July, Bipolar 1 disorder F31.9 ; Borderline in tellectual functioning R41.83 and Extreme poverty Z59.5 [place] [address] [address] July, Back pain M54.9 and Diabetes E11.9 [place] [address] [address] Jun, Bipolar 1 disorder F31.9 ; Borderline in tellectual functioning R41.83 and Extreme poverty Z59.5 [place] [address] [address] Jun, Bipolar 1 disorder F31.9 ; Borderline in tellectual functioning R41.83 and Extreme poverty Z59.5 [place] [address] [address] May, Visit for pelvic exam Z01.419 ; Acute va ginitis N76.0 and Diabetes E11.9 [place] [address] [address] May, Bipolar 1 disorder F31.9 ; Borderline in tellectual functioning R41.83 and Extreme poverty Z59.5 [place] [address] [address] May, [place] [address] [address] May, [place] [address] [address] May, Bipolar 1 disorder F31.9 ; Borderline in tellectual functioning R41.83 and Extreme poverty Z59.5 [place] [address] [address] May, Hyperlipidemia, unspecified E78.5 [place] [address] [address] Apr, Breast cancer screening Z12.39 [place] [address] [address] Mar, [place] [address] [address] Mar, Bipolar disorder, current episode mixed, unspecified F31.60 [place] [address] [address] Mar, Bipolar 1 disorder F31.9 ; Borderline in tellectual functioning R41.83 and Extreme poverty Z59.5 [place] [address] [address] Feb, Acute nasopharyngitis J00 [place] [address] [address] 27 Feb, 2016 Dental examination Z01.20 [place] [address] [address] 21 Feb, 2016 Dental cavities K02.9 and Chronic period ontitis, unspecified K05.30 [place] [address] [address] 13 Feb, 2016 Low back pain M54.5 and Extreme poverty Z59.5 [place] [address] [address] 08 Feb, 2016 [place] [address] [address] 05 Feb, 2016 Routine gynecological examination V72.31 ; Breast cancer screening Z12.39 and Herpes simplex type 1 infection B00.9 [place] [address] [address] 02 Feb, 2016 Diabetes E11.9 [place] [address] [address] 01 Feb, 2016 Encounter for dental examination and leti aning without abnormal findings Z01.20 [place] [address] [address] 22 Jan, 2016 Hyperlipidemia, unspecified E78.5 [place] [address] [address] 22 Jan, 2016 Bipolar 1 disorder F31.9 ; Borderline in tellectual functioning R41.83 and Extreme poverty Z59.5 [place] [address] [address] 18 Jan, 2016 Diabetes E11.9 [place] [address] [address] 17 Jan, 2016 Diabetes E11.9 [place] [address] [address] 14 Dec, 2015 Bipolar 1 disorder F31.9 ; Borderline in tellectual functioning R41.83 and Extreme poverty Z59.5 [place] [address] [address] 13 Dec, 2015 Bipolar disorder, current episode mixed, unspecified F31.60 and 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 [place] [address] [address] 16 Nov, 2015 Bipolar 1 disorder F31.9 ; Borderline in tellectual functioning R41.83 ; Extreme poverty Z59.5 and Non compliance with medical treatment Z91.19 [place] [address] [address] Oct, [place] [address] [address] Oct, Dental caries K02.9 [place] [address] [address] Oct, Low back pain M54.5 and Other chronic pa in G89.29 [place] [address] [address] Oct, Bipolar 1 disorder F31.9 ; Borderline in tellectual functioning R41.83 ; Extreme poverty Z59.5 and Non compliance with medical treatment Z91.19 [place] [address] [address] Oct, [place] [address] [address] Oct, [place] [address] [address] Oct, Dental examination Z01.20 [place] [address] [address] Oct, Bipolar 1 disorder F31.9 ; Borderline in tellectual functioning R41.83 ; Extreme poverty Z59.5 and Non compliance with medical treatment Z91.19 [place] [address] [address] Oct, [place] [address] [address] Sep, Type 2 diabetes mellitus with complicati on E11.8 [place] [address] [address] Sep, Bipolar disorder, current episode mixed, unspecified F31.60 [place] [address] [place] [id number] [place] [address] Sep, Bipolar disorder, current episode mixed, unspecified F31.60 [place] [address] [address] Sep, Bipolar disorder, in partial remission, most recent episode manic F31.73 ; 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 ; Extreme poverty Z59.5 and Non compliance with medical treatment Z91.19 [place] [address] [address] Aug, Bipolar disorder, in partial remission, most recent episode manic F31.73 ; 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 ; Extreme poverty Z59.5 and Non compliance with medical treatment Z91.19 [place] [address] [address] Aug, Bipolar disorder, in partial remission, most recent episode manic F31.73 ; 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 ; Extreme poverty Z59.5 and Non compliance with medical treatment Z91.19 [place] [address] [address] Aug, [place] [address] [address] July, Bipolar disorder, in partial remission, most recent episode manic F31.73 ; 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 ; Extreme poverty Z59.5 and Non compliance with medical treatment Z91.19 [place] [address] [address] July, Bipolar disorder, current episode mixed, unspecified F31.60 [place] [address] [address] July, Bipolar disorder, in partial remission, most recent episode manic F31.73 ; 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 ; Extreme poverty Z59.5 and Non compliance with medical treatment Z91.19 [place] [address] [address] July, 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 and Chronic pain G89.29 [place] [address] [address] Jun, correction current use of opiate analgesi c Z79.891 and Bipolar 1 disorder F31.9 [place] [address] [address] Jun, [place] [address] [address] Jun, [place] [address] [address] Jun, [place] [address] [address] Jun, Bipolar disorder, in partial remission, most recent episode manic F31.73 ; 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 and Non compliance with medical treatment Z91.19 [place] [address] [address] May, Bipolar disorder, in partial remission, most recent episode manic F31.73 ; 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 and Non compliance with medical treatment Z91.19 [place] [address] [address] May, Bipolar disorder, in partial remission, most recent episode manic F31.73 [place] [address] [address] May, Diabetes E11.9 and Chronic pain G89.29 [place] [address] [address] May, [place] [address] [address] May, Bipolar disorder, in partial remission, most recent episode manic F31.73 ; Non compliance with medical treatment Z91.19 and 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 [place] [address] [address] May, Type 2 diabetes mellitus with complicati on E11.8 and Back pain M54.[address] [address] May, Bipolar disorder, in partial remission, most recent episode manic F31.73 and 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 [place] [address] [address] Apr, [address] [address] Apr, [place] [address] [address] Apr, [address] [address] Apr, Diabetes E11.9 ; Irritable bowel syndrom e with diarrhea K58.0 and Lumbar radiculopathy M54.[address] [address] Apr, Breast screening Z12.[address] [address] 02 Apr, 2015 Bipolar disorder, in partial remission, most recent episode manic F31.73 ; Non compliance with medical treatment Z91.19 and 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 [place] [address] [address] Mar, Edema, unspecified type R60.9 and Type 2 diabetes mellitus with complication E11.[address] [address] Mar, Bipolar disorder, in partial remission, most recent episode manic F31.73 ; Non compliance with medical treatment Z91.19 ; 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 and Extreme poverty Z59.5 [place] [address] [address] 14 Mar, 2015 Bipolar disorder, current episode mixed, unspecified F31.60 ; 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 ; Extreme poverty Z59.5 and Generalized anxiety disorder F41.1 [place] [address] [address] 12 Mar, 2015 Bipolar disorder, in partial remission, most recent episode manic F31.73 ; 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 and Extreme poverty Z59.5 [place] [address] [address] Feb, Bipolar disorder, in partial remission, most recent episode manic F31.73 ; 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 and Extreme poverty Z59.5 [place] [address] [address] Feb, Bipolar disorder, in partial remission, most recent episode manic F31.73 ; 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 and Extreme poverty Z59.5 [place] [address] [address] Feb, [place] [address] [address] Jan, Type 2 diabetes mellitus with complicati on E11.8 and Petechiae R23.3 [place] [address] [address] Jan, Type 2 diabetes mellitus with complicati on E11.8 ; Edema, unspecified R60.9 ; Petechiae R23.3 and Diabetes E11.9 [place] [address] [address] Jan, Bipolar disorder, in partial remission, most recent episode manic F31.73 ; 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 and Extreme poverty Z59.5 [place] [address] [address] Jan, Bipolar disorder, in partial remission, most recent episode manic F31.73 ; 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 and Extreme poverty Z59.5 [facility] [address] [address] Dec, Bipolar disorder, in partial remission, most recent episode manic F31.73 [facility] [address] [address] Dec, Edema, due to unspecified malnutrition t ype, unspecified edema R60.9 and Essential hypertension I10 [place] [address] [address] Dec, Bipolar disorder, in partial remission, most recent episode manic F31.73 [place] [address] [address] Nov, Bipolar I disorder, most recent episode (or current) mixed, unspecified 296.60 [place] [address] [address] Nov, Stress incontinence, female 625.6 ; Back pain 724.5 and Leg pain 729.5 [place] [address] [address] Nov, Generalized anxiety disorder 300.02 and Bipolar II disorder 296.89 [place] [address] [address] Nov, Bipolar I disorder, most recent episode (or current) mixed, unspecified 296.60 [facility] [address] [address] Oct, [facility] [address] [address] Oct, [facility] [address] [address] Oct, [facility] [address] [address] Oct, Bipolar I disorder, most recent episode (or current) mixed, unspecified 296.60 [facility] [address] [place] [id number] [place] [address] Sep, Diabetes 250.00 [facility] [address] [address] Sep, Bipolar I disorder, most recent episode (or current) mixed, unspecified 296.60 [facility] [address] [address] Sep, [facility] [address] [address] Sep, [facility] [address] [address] Sep, Bipolar I disorder, most recent episode (or current) mixed, unspecified 296.60 [facility] [address] [address] Sep, Bipolar I disorder, most recent episode (or current) mixed, unspecified 296.60 [facility] [address] [address] Sep, [facility] [address] [address] Sep, Anxiety 300.00 ; Diabetes 250.00 and Hyp erlipidemia 272.4 [facility] [address] [address] Aug, [facility] [address] [address] Aug, [facility] [address] [address] Aug, [facility] [address] [address] Aug, Bipolar I disorder, most recent episode (or current) mixed, unspecified 296.60 [facility] [address] [address] Aug, Generalized anxiety disorder 300.02 and Bipolar II disorder 296.89 [facility] [address] [place] [address] [id number] [place] [address] July, Bipolar I disorder, most recent episode (or current) mixed, unspecified 296.60 [facility] [address] [place] [id number] [place] [address] July, Cough 786.2 [facility] [address] [id number] [place] [address] July, Bipolar I disorder, most recent episode (or current) mixed, unspecified 296.60 [facility] [address] [id number] [place] [address] Jun, Diabetes 250.00 [facility] [address] [place] [id number] [place] [address] Jun, [facility] [address] [place] [address] [id number] [place] [address] Jun, [facility] [id number] [place] [address] May, [facility] [address] [id number] [place] [address] May, [facility] [address] [place] [id number] [place] [address] May, [facility] [address] [id number] [place] [address] May, [facility] [address] [place] [address] [id number] [place] [address] May, [facility] [address] [id number] [place] [address] May, [facility] [address] [id number] [place] [address] Apr, [facility] [address] [place] [address] [id number] [place] [address] Apr, [facility] [address] [id number] [place] [address] Apr, [facility] [address] [place] [id number] [place] [address] 11 Apr, 2014 [facility] [place] [facility] [address] [id number] [place] [address] Apr, [facility] [place] [facility] [address] [id number] [place] [address] Apr, [facility] [place] [facility] [address] [id number] [place] [address] Apr, [facility] [place] [facility] [address] [id number] [place] [address] Apr, [facility] [place] [facility] [address] [id number] [place] [address] Mar, [facility] [place] [facility] [address] [id number] [place] [address] Mar, [facility] [place] [facility] [address] [id number] [place] [address] Mar, [facility] [place] [facility] [address] [id number] [place] [address] Mar, [facility] [place] [facility] [address] [id number] [place] [address] Mar, [facility] [place] [facility] [address] [id number] [place] [address] Mar, [facility] [place] [facility] [address] [id number] [place] [address] Mar, [facility] [place] [facility] [address] [id number] [place] [address] Mar, [facility] [place] [facility] [address] [id number] [place] [address] Feb, [facility] [place] [facility] [address] [id number] [place] [address] Feb, [facility] [place] [facility] [address] [id number] [place] [address] Feb, [facility] [place] [facility] [address] [id number] [place] [address] Feb, [facility] [place] [facility] [address] [id number] [place] [address] Feb, [facility] [place] [facility] [address] [id number] [place] [address] Feb, [facility] [place] [facility] [address] [id number] [place] [address] Feb, [facility] [place] [facility] [address] [id number] [place] [address] Feb, [facility] [place] [facility] [address] [facility] [id number] [place] [address] Feb, [facility] [place] [facility] [address] [id number] [place] [address] Feb, [facility] [place] [facility] [address] [id number] [place] [address] Jan, [facility] [place] [facility] [address] [id number] [place] [address] Jan, [facility] [place] [facility] [address] [id number] [place] [address] Jan, [facility] [place] [facility] [address] [id number] [place] [address] Jan, [facility] [place] [facility] [address] [id number] [place] [address] Jan, [facility] [place] [facility] [address] [id number] [place] [address] Jan, [facility] [place] [facility] [address] [id number] [place] [address] Jan, [facility] [place] [facility] [address] [id number] [place] [address] Jan, [facility] [place] [facility] [address] [id number] [place] [address] Jan, [facility] [place] [facility] [address] [id number] [place] [address] Jan, [facility] [place] [facility] [address] [id number] [place] [address] Jan, [facility] [place] [facility] [address] [id number] [place] [address] Jan, [facility] [place] [facility] [address] [id number] [place] [address] Jan, [facility] [place] [facility] [address] [id number] [place] [address] Jan, [facility] [place] [facility] [address] [id number] [place] [address] Jan, [facility] [place] [facility] [address] [id number] [place] [address] Dec, [facility] [place] [facility] [address] [id number] [place] [address] Dec, [facility] [place] [facility] [address] [id number] [place] [address] Dec, [facility] [place] [facility] [address] [id number] [place] [address] Dec, [facility] [place] [facility] [address] [id number] [place] [address] Dec, [facility] [place] [facility] [address] [id number] [place] [address] Dec, [facility] [place] [facility] [address] [id number] [place] [address] Dec, [facility] [place] [facility] [address] [id number] [place] [address] Dec, [facility] [place] [facility] [address] [id number] [place] [address] Nov, 2013 [facility] [place] [facility] [address] [id number] [place] [address] 25 Nov, 2013 [facility] [place] [facility] [address] [id number] [place] [address] Nov, 2013 [facility] [place] [facility] [address] [id number] [place] [address] 10 Nov, 2013 [facility] [place] [facility] [address] [id number] [place] [address] 08 Sep, 2013 [facility] [place] [facility] [address] [id number] [place] [address] 08 Sep, 2013 [facility] [place] [facility] [address] [id number] [place] [address] 08 Nov, 2013 [facility] [place] [facility] [address] [id number] [place] [address] 08 Sep, 2013 [facility] [place] [facility] [address] [id number] [place] [address] 08 Sep, 2013 [facility] [place] [facility] [address] [id number] [place] [address] 08 Nov, 2013 [facility] [place] [facility] [address] [id number] [place] [address] 04 Nov, 2013 [facility] [place] [facility] [address] [id number] [place] [address] 04 Nov, 2013 [facility] [place] [facility] [address] [id number] [place] [address] 03 Nov, 2013 [facility] [place] [facility] [address] [id number] [place] [address] Nov, 2013 [facility] [place] [facility] [address] [id number] [place] [address] Nov, 2013 [facility] [place] [facility] [address] [id number] [place] [address] Oct, [facility] [place] [facility] [address] [id number] [place] [address] Oct, [facility] [place] [facility] [address] [id number] [place] [address] Oct, [facility] [place] [facility] [address] [id number] [place] [address] Oct, [facility] [place] [facility] [address] [id number] [place] [address] Oct, [facility] [place] [facility] [address] [id number] [place] [address] Oct, [facility] [place] [facility] [address] [id number] [place] [address] Oct, [facility] [place] [facility] [address] [id number] [place] [address] Oct, [facility] [place] [facility] [address] [facility] [id number] [place] [address] Oct, [facility] [place] [facility] [address] [id number] [place] [address] Oct, [facility] [place] [facility] [address] [facility] [id number] [place] [address] Oct, [facility] [place] [facility] [address] [id number] [place] [address] Oct, [facility] [place] [facility] [address] [facility] [id number] [place] [address] Oct, [facility] [place] [facility] [address] [id number] [place] [address] Oct, [facility] [place] [facility] [address] [facility] [id number] [place] [address] Sep, [facility] [place] [facility] [address] [id number] [place] [address] Sep, [facility] [place] [facility] [address] [id number] [place] [address] Sep, [facility] [place] [facility] [address] [id number] [place] [address] Sep, [facility] [place] [facility] [address] [facility] [id number] [place] [address] Sep, [facility] [place] [facility] [address] [id number] [place] [address] Sep, [facility] [place] [facility] [address] [facility] [id number] [place] [address] Sep, [facility] [place] [facility] [address] [id number] [place] [address] Sep, [facility] [place] [facility] [address] [id number] [place] [address] Aug, [facility] [place] [facility] [address] [facility] [id number] [place] [address] Aug, [facility] [place] [facility] [address] [id number] [place] [address] Aug, [facility] [place] [facility] [address] [id number] [place] [address] Aug, [facility] [place] [facility] [address] [id number] [place] [address] Aug, [facility] [place] [facility] [address] [id number] [place] [address] Aug, [facility] [place] [facility] [address] [id number] [place] [address] Aug, [facility] [place] [facility] [address] [id number] [place] [address] Aug, [facility] [place] [facility] [address] [id number] [place] [address] July, [facility] [place] [facility] [address] [id number] [place] [address] July, [facility] [place] [facility] [address] [id number] [place] [address] July, [facility] [place] [facility] [address] [id number] [place] [address] July, [facility] [place] [facility] [address] [id number] [place] [address] July, [facility] [place] [facility] [address] [id number] [place] [address] July, [facility] [place] [facility] [address] [id number] [place] [address] July, [facility] [place] [facility] [address] [id number] [place] [address] July, [facility] [place] [facility] [address] [id number] [place] [address] Jun, [facility] [place] [facility] [address] [facility] [id number] [place] [address] Jun, [facility] [place] [facility] [address] [id number] [place] [address] Jun, [facility] [place] [facility] [address] [id number] [place] [address] Jun, [facility] [place] [facility] [address] [id number] [place] [address] Jun, [facility] [place] [facility] [address] [id number] [place] [address] Jun, [facility] [place] [facility] [address] [id number] [place] [address] Jun, [facility] [place] [facility] [address] [id number] [place] [address] Jun, [facility] [place] [facility] [address] [id number] [place] [address] Jun, [facility] [place] [facility] [address] [id number] [place] [address] Jun, [facility] [place] [facility] [address] [id number] [place] [address] Jun, [facility] [place] [facility] [address] [id number] [place] [address] Jun, [facility] [place] [facility] [address] [id number] [place] [address] May, [facility] [place] [facility] [address] [id number] [place] [address] May, [facility] [place] [facility] [address] [id number] [place] [address] May, [facility] [place] [facility] [address] [id number] [place] [address] May, [facility] [place] [facility] [address] [id number] [place] [address] May, [facility] [place] [facility] [address] [id number] [place] [address] May, [facility] [place] [facility] [address] [facility] [id number] [place] [address] May, [facility] [place] [facility] [address] [facility] [id number] [place] [address] May, [facility] [place] [facility] [address] [facility] [id number] [place] [place] [address] May, [facility] [place] [facility] [address] [facility] [id number] [place] [place] [address] May, [facility] [place] [facility] [address] [facility] [id number] [place] [address] May, [facility] [place] [facility] [address] [facility] [id number] [place] [address] May, [facility] [address] [facility] [id number] [place] [address] May, [facility] [address] [id number] [place] [address] May, [facility] [address] [facility] [id number] [facility] [place] [address] Apr, [facility] [address] [id number] [facility] [place] [address] Apr, [facility] [address] [id number] [place] [address] Apr, [facility] [address] [id number] [place] [address] Apr, [facility] [address] [facility] [id number] [facility] [address] Apr, [facility] [address] [facility] [id number] [place] [address] Apr, [facility] [address] [facility] [id number] [place] [address] Mar, [facility] [address] [id number] [place] [address] Mar, [facility] [address] [id number] [place] [address] Mar, [facility] [address] [facility] [id number] [place] [address] Mar, [facility] [address] [id number] [place] [address] Mar, [facility] [address] [id number] [place] [address] Mar, [facility] [address] [id number] [place] [address] Mar, [facility] [address] [id number] [place] [address] Mar, [facility] [address] [id number] [place] [address] Mar, [facility] [address] [id number] [place] [address] Mar, [facility] [address] [id number] [place] [address] Mar, [facility] [address] [id number] [place] [address] Mar, [facility] [address] [id number] [place] [address] Mar, [facility] [address] [id number] [place] [address] Mar, [facility] [address] [id number] [place] [address] Feb, [facility] [address] [id number] [place] [address] Feb, [facility] [address] [id number] [place] [address] Feb, [facility] [address] [id number] [place] [address] Feb, [facility] [address] [id number] [place] [address] Feb, [facility] [address] [id number] [place] [address] Feb, 2012 [facility] [address] [id number] [place] [address] Feb, 2012 [facility] [address] [id number] [place] [address] Feb, 2012 [facility] [address] [id number] [place] [address] Feb, 2012 [facility] [address] [id number] [place] [address] Feb, 2012 [facility] [address] [id number] [place] [address] Feb, 2012 [facility] [address] [id number] [place] [address] Feb, 2012 [facility] [address] [id number] [place] [address] Feb, 2012 [facility] [address] [id number] [place] [address] Feb, 2012 [facility] [address] [id number] [place] [address] Feb, 2012 [facility] [address] [id number] [place] [address] Feb, 2012 [facility] [address] [id number] [place] [address] 24 Dec, 2012 [facility] [address] [id number] [place] [address] 24 Dec, 2012 [facility] [address] [id number] [place] [address] Dec, [facility] [address] [id number] [place] [address] Dec, 2012 [facility] [address] [id number] [place] [address] Dec, 2012 [facility] [address] [id number] [place] [address] 16 Dec, 2012 [facility] [address] [facility] [id number] [place] [address] 14 Dec, 2012 [facility] [address] [facility] [id number] [place] [address] 14 Dec, 2012 [facility] [address] [id number] [place] [address] 10 Dec, 2012 [facility] [address] [id number] [place] [address] 10 Dec, 2012 [facility] [address] [facility] [id number] [place] [address] 10 Dec, 2012 [facility] [address] [id number] [place] [address] 10 Dec, 2012 [facility] [address] [id number] [place] [address] 03 Dec, 2012 [facility] [address] [id number] [place] [address] 25 Nov, 2012 [facility] [address] [id number] [place] [address] 20 Nov, 2012 [facility] [address] [id number] [place] [address] 18 Nov, 2012 [facility] [address] [id number] [place] [address] 16 Nov, 2012 [facility] [address] [id number] [place] [address] 12 Nov, 2012 [facility] [address] [id number] [place] [address] 11 Nov, 2012 [facility] [address] [id number] [place] [address] 05 Sep, 2012 [facility] [address] [id number] [place] [address] 15 Oct, 2012 [facility] [address] [id number] [place] [address] 03 Oct, 2012 [facility] [address] [id number] [place] [address] 24 Sep, 2012 [facility] [address] [id number] [place] [address] Sep, [facility] [address] [facility] [id number] [place] [address] Sep, [facility] [address] [id number] [place] [address] 17 Sep, 2012 [facility] [address] [facility] [id number] [place] [address] 15 Sep, 2012 [facility] [address] [facility] [id number] [place] [address] Sep, [facility] [address] [id number] [place] [address] Sep, [facility] [address] [id number] [place] [address] Aug, [facility] [address] [id number] [place] [address] 18 Aug, 2012 [facility] [address] [id number] [place] [address] 16 Aug, 2012 [facility] [address] [id number] [place] [address] Aug, [facility] [address] [id number] [place] [address] Aug, [facility] [address] [id number] [place] [address] Aug, [facility] [address] [facility] [id number] [place] [address] Aug, [facility] [address] [id number] [place] [address] Aug, [facility] [address] [id number] [place] [address] July, [facility] [address] [id number] [place] [address] July, [facility] [address] [id number] [place] [address] July, [facility] [address] [facility] [id number] [place] [id number] July, [facility] [address] [id number] [place] [address] July, [facility] [address] [id number] [place] [address] Jun, [facility] [address] [id number] [place] [address] May, [facility] [address] [id number] [place] [address] May, [facility] [address] [id number] [place] [address] May, [facility] [address] [id number] [place] [address] Apr, [facility] [address] [id number] [place] [address] Apr, [facility] [address] [id number] [place] [address] Apr, [facility] [address] [id number] [place] [address] Mar, [facility] [address] [id number] [place] [address] Mar, [facility] [address] [id number] [place] [address] Mar, [facility] [address] [id number] [place] [address] Mar, [facility] [address] [id number] [place] [address] Mar, [facility] [address] [id number] [place] [address] Mar, [facility] [address] [id number] [place] [address] Mar, [facility] [address] [id number] [place] [address] Feb, [facility] [address] [id number] [place] [address] Feb, [facility] [address] [id number] [place] [address] Feb, [facility] [address] [id number] [place] [address] Feb, [facility] [address] [id number] [place] [address] Feb, [facility] [address] [id number] [place] [address] Feb, [facility] [address] [id number] [place] [address] Feb, [facility] [address] [id number] [place] [address] Feb, [facility] [address] [id number] [place] [address] Jan, [facility] [address] [id number] [place] [address] Jan, [facility] [address] [id number] [place] [address] Jan, [facility] [address] [id number] [place] [address] Jan, [facility] [address] [id number] [place] [address] Jan, [facility] [address] [id number] [place] [address] Jan, [facility] [address] [id number] [place] [address] Jan, [facility] [address] [id number] [place] [address] Jan, [facility] [address] [id number] [place] [address] Jan, [facility] [address] [id number] [place] [address] Jan, [facility] [address] [id number] [place] [address] Jan, [facility] [address] [id number] [place] [address] Jan, [facility] [address] [id number] [place] [address] Jan, [facility] [address] [id number] [place] [address] Jan, [facility] [address] [id number] [place] [address] Jan, [facility] [address] [id number] [place] [address] Jan, [facility] [address] [id number] [place] [address] Dec, [facility] [address] [id number] [place] [address] Dec, [facility] [address] [id number] [place] [address] Dec, [facility] [address] [id number] [place] [address] Dec, [facility] [address] [id number] [place] [address] Dec, [facility] [address] [id number] [place] [address] Dec, [facility] [address] [id number] [place] [address] Dec, [facility] [address] [id number] [place] [address] Dec, [facility] [address] [id number] [place] [address] 08 Dec, 2011 [facility] [address] [id number] [place] [address] 05 Dec, 2011 [facility] [address] [id number] [place] [address] 18 Nov, 2011 [facility] [address] [id number] [place] [address] 13 Nov, 2011 [facility] [address] [id number] [place] [address] 24 Oct, 2011 [facility] [address] [id number] [place] [address] Oct, [facility] [address] [id number] [place] [address] Oct, [facility] [address] [id number] [place] [address] Oct, [facility] [address] [id number] [place] [address] Oct, [facility] [address] [id number] [place] [address] Oct, [facility] [address] [id number] [place] [address] Oct, [facility] [address] [id number] [place] [address] Sep, [facility] [address] [id number] [place] [address] Aug, [facility] [address] [id number] [place] [address] Aug, [facility] [address] [id number] [place] [address] Aug, [facility] [address] [id number] [place] [address] Aug, [facility] [address] [id number] [place] [address] Aug, [facility] [address] [id number] [place] [address] July, [facility] [address] [id number] [place] [address] July, [facility] [address] [id number] [place] [address] July, [facility] [address] [id number] [place] [address] Jun, [facility] [address] [id number] [place] [address] Jun, [facility] [address] [id number] [place] [address] Jun, [facility] [address] [id number] [place] [address] Jun, [facility] [address] [id number] [place] [address] May, [facility] [address] [id number] [place] [address] 30 May, 2011 [facility] [address] [id number] [place] [address] 29 May, 2011 [facility] [address] [id number] [place] [address] 28 May, 2011 [facility] [address] [id number] [place] [address] May, [facility] [address] [id number] [place] [address] May, [facility] [address] [id number] [place] [address] May, [facility] [address] [id number] [place] [address] May, [facility] [address] [id number] [place] [address] 08 May, 2011 [facility] [address] [id number] [place] [address] 05 May, 2011 [facility] [address] [id number] [place] [address] May, [facility] [address] [id number] [place] [address] May, [facility] [address] [id number] [place] [address] Mar, [facility] [address] [id number] [place] [address] Mar, [facility] [address] [id number] [place] [address] Feb, [facility] [address] [id number] [place] [address] Feb, [facility] [address] [id number] [place] [address] Feb, [facility] [address] [id number] [place] [address] 15 Feb, 2011 [facility] [address] [id number] [place] [address] Feb, [facility] [address] [id number] [place] [address] Feb, [facility] [address] [id number] [place] [address] Feb, [facility] [address] [id number] [place] [address] Jan, [facility] [address] [id number] [place] [address] Jan, [facility] [address] [id number] [place] [address] Jan, [facility] [address] [id number] [place] [address] 17 Jan, 2011 [facility] [address] [id number] [place] [address] Jan, [facility] [address] [id number] [place] [address] Jan, [facility] [address] [id number] [place] [address] Dec, [facility] [address] [id number] [place] [address] Dec, [facility] [address] [id number] [place] [address] Dec, [facility] [address] [id number] [place] [address] July, [facility] [address] [id number] [place] [address] July, [facility] [address] [id number] [place] [address] Feb, [facility] [address] [id number] [place] [address] Jan, [facility] [address] [id number] [place] [address] Dec, [facility] [address] [id number] [place] [address] Dec, [facility] [address] [id number] [place] [address] Sep, [facility] [address] [id number] [place] [address] Aug, [facility] [address] [id number] [place] [address] Jun, [facility] [address] [id number] [place] [address] Jun, [facility] [address] [id number] [place] [address] Jan, [facility] [address] [id number] [place] [address] Jan, [facility] [address] [id number] [place] [address] 05 Jan, 2009 [facility] [address] [id number] [place] [address] Jan, [facility] [address] [id number] [place] [address] Dec, [facility] [address] [id number] [place] [address] Dec, [facility] [address] [id number] [place] [address] Dec, [facility] [address] [id number] [place] [address] Nov, [facility] [address] [id number] [place] [address] July, [facility] [address] [id number] [place] [address] May, [facility] [address] [id number] [place] [address] Apr, [facility] [address] [id number] [place] [address] Feb, [facility] [address] [id number] [place] [address] Dec, IMMUNIZATIONS No Known Immunizations SOCIAL HISTORY Never Assessed REASON FOR VISIT PLAN OF CARE VITAL SIGNS Height 62 in 2013-03-28 Weight 211 lbs 2013-03-28 Temperature 98.2 degrees Fahrenheit 2013-03-28 Heart Rate 82 bpm 2013-03-28 Respiratory Rate 14 2013-03-28 Blood pressure systolic 124 mmHg 2013-03-28 Blood pressure diastolic 68 mmHg 2013-03-28 MEDICATIONS Unknown Medications RESULTS No Results PROCEDURES [...] History back surgery Laminectomy - [facility] 10/04/2014 Surgical History Pain shot in lower back -Dr. Sheehan 08/22 Hospitalization History surgery
--- OUTSIDE RECORDS SUMMARY | 2019-06-22 19:34 | XMS REPORT ---
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 Active 60976551 Problem Lumbar radiculopathy M54.16 Active 640507079 Problem Irritable bowel syndrome with diarrhea K58.0 Active 543654770 Problem long term care pharmacist current 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 Z79.891 Active 907035996 Problem Diabetes E11.9 Active 124057128 Problem Type 2 diabetes mellitus with complication E11.8 Active 066564883 Problem Post laminectomy syndrome M96.1 Acti ve 34282958 Problem Bipolar 1 disorder F31.9 Active 3 07650451 Problem New daily persistent headache G44.52 Active 085485723 Problem Type 2 diabetes mellitus with hyperglycemia E11.65 Active 86333468 Problem Other chronic pain G89.29 Active 8 8128486 Problem Essential hypertension I10 Active 90740570 Problem Acute bilateral low back pain with right-sided sciatica M54.41 Active 369444841 Problem Bipolar disorder, in partial remission, most rec ent episode manic F31.73 Active 98411025 Problem Seasonal allergic rhinitis due to pollen J30.1 Active 83479726 Problem Hyperlipidemia, unspecified E78.5 Ac tive 02801558 Problem Eye exam normal Z01.00 Active 2438 18505 Problem Extreme poverty Z59.5 Active 1140 3006 Problem Lumbago with sciatica, left side M54.42 Active 918789772 Problem Hypertriglyceridemia E78.1 Active 447899203 Problem Insulin long-term use Z79.4 Active 903455420 Problem Rhinosinusitis J32.9 Active 29401 000 ALLERGIES No Information ENCOUNTERS Encounter Location Date Diagnosis [place] [id number] [place] [address] 08 Aug, 2019 [facility] [address] [address] 16 Jun, 2019 [facility] [address] [address] 07 Jun, 2019 [place] [address] [address] 02 Jun, 2019 [facility] [address] [address] 26 May, 2019 [place] [address] [address] 19 May, 2019 Spinal stenosis of lumbar region without neurogenic claudication M48.061 ; Segmental dysfunction of thoracic region M99.02 ; Segmental dysfunction of lumbar region M99.03 and Segmental dysfunction of sacral region M99.04 [place] [address] [address] 19 May, 2019 [place] [address] [address] May, Borderline intellectual functioning R41. 83 and Bipolar disorder, in partial remission, most recent episode manic F31.73 [place] [id number] [place] [address] 17 May, 2019 [facility] [address] [facility] [id number] [address] [place] [address] 15 May, 2019 Diarrhea, unspecified type R 19.7 [place] [address] [id number] [place] [address] 09 May, 2019 Borderline intellectual functioning R41. 83 [place] [address] [address] 09 May, 2019 Type 2 diabetes mellitus with complicati on E11.8 [place] [address] [address] 09 May, 2019 Bipolar 1 disorder F31.9 ; Type 2 diabet es mellitus with complication E11.8 ; Pain of right thumb M79.644 ; Extreme poverty Z59.5 and Low back pain M54.5 [facility] [address] [address] May, [facility] [address] [address] 28 Apr, 2019 Bipolar 1 disorder F31.9 ; Borderline in tellectual functioning R41.83 and Extreme poverty Z59.5 [facility] [address] [facility] [id number] [address] [place] [address] Apr, Seasonal allergic rhinitis d ue to pollen J30.1 [place] [address] [address] Apr, Essential hypertension I10 and Diabetes E11.9 [place] [address] [address] Apr, [place] [address] [address] Mar, Bipolar 1 disorder F31.9 ; Borderline in tellectual functioning R41.83 and Extreme poverty Z59.5 [place] [address] [address] Mar, Exercise counseling Z71.82 [place] [address] [address] Mar, [place] [address] [address] Mar, Bipolar disorder, in partial remission, most recent episode manic F31.73 and 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 [address] [facility] [id number] [address] [place] [address] Feb, Acute low back pain without sciatica, unspecified back pain laterality M54.5 [facility] [address] [address] Feb, Bipolar 1 disorder F31.9 ; Borderline in tellectual functioning R41.83 and Extreme poverty Z59.5 [facility] [address] [address] Jan, Bipolar 1 disorder F31.9 ; Borderline in tellectual functioning R41.83 and Extreme poverty Z59.5 [facility] [address] [address] Jan, [facility] [address] [address] Jan, Type 2 diabetes mellitus with complicati on E11.8 [facility] [address] [address] Jan, Type 2 diabetes mellitus with complicati on E11.8 ; Dysuria R30.0 and Diarrhea, unspecified type R19.7 [facility] [address] [address] Jan, Bipolar 1 disorder F31.9 ; Borderline in tellectual functioning R41.83 and Extreme poverty Z59.5 [facility] [address] [address] Dec, [facility] [address] [address] Dec, [facility] [address] [address] Dec, [facility] [address] [address] Dec, [facility] [address] [address] Dec, Rhinosinusitis J32.9 [facility] [address] [address] Dec, [facility] [address] [address] Dec, Bipolar 1 disorder F31.9 ; Borderline in tellectual functioning R41.83 and Extreme poverty Z59.5 [place] [address] [address] Dec, Type 2 diabetes mellitus with complicati on E11.8 and Type 2 diabetes mellitus with hyperglycemia E11.65 [place] [address] [address] Dec, [place] [address] [address] Dec, Type 2 diabetes mellitus with complicati on E11.8 ; Insulin long-term use Z79.4 ; Hyperglycemia R73.9 and Yeast infection B37.9 [place] [address] [address] Dec, Encounter for immunization Z23 [place] [address] [address] Nov, [place] [address] [address] Nov, Bipolar 1 disorder F31.9 ; Borderline in tellectual functioning R41.83 and Extreme poverty Z59.5 [place] [address] [address] Nov, [facility] [address] [address] Nov, [facility] [address] [address] Nov, Borderline intellectual functioning R41. 83 and Bipolar disorder, in partial remission, most recent episode manic F31.73 [facility] [address] [place] [id number] [place] [address] Nov, Epigastric abdominal pain R1 0.13 [facility] [address] [address] Nov, Bipolar 1 disorder F31.9 ; Borderline in tellectual functioning R41.83 and Extreme poverty Z59.5 [facility] [place] [id number] [place] [address] Oct, Dysuria R30.0 and Acute cyst itis without hematuria N30.00 [facility] [address] [place] [id number] [place] [address] Oct, [facility] [address] [address] Oct, [place] [address] [address] Oct, Bipolar 1 disorder F31.9 ; Borderline in tellectual functioning R41.83 and Extreme poverty Z59.5 [place] [address] [address] Oct, [facility] [address] [address] Oct, [facility] [address] [address] Oct, Bipolar disorder, in partial remission, most recent episode manic F31.73 and 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 [facility] [address] [address] Oct, Bipolar 1 disorder F31.9 ; Borderline in tellectual functioning R41.83 and Extreme poverty Z59.5 [facility] [address] [id number] [place] [address] Oct, Diarrhea, unspecified type R19.7 [facility] [address] [facility] [id number] [place] [id number] Sep, Dental examination Z01.20 and Dental car ies K02.9 [facility] [address] [facility] [id number] [address] [place] [address] Sep, Mouth pain K13.79 [facility] [id number] [place] [address] Sep, [facility] [address] [address] Sep, Bipolar 1 disorder F31.9 ; Borderline in tellectual functioning R41.83 and Extreme poverty Z59.5 [facility] [id number] [place] [address] Sep, [facility] [id number] [place] [address] Sep, [facility] [address] [address] Sep, Diabetes E11.9 ; Hyperglycemia R73.9 ; L eliseo term current use of insulin Z79.4 and Diarrhea, unspecified type R19.7 [facility] [id number] [place] [address] Sep, [facility] [address] [address] Sep, Bipolar 1 disorder F31.9 ; Borderline in tellectual functioning R41.83 and Extreme poverty Z59.5 [facility] [address] [address] Sep, [facility] [address] [address] Sep, [facility] [address] [address] Aug, Bipolar 1 disorder F31.9 ; Borderline in tellectual functioning R41.83 and Extreme poverty Z59.5 [place] [address] [address] Aug, Exercise counseling Z71.82 [facility] [address] [address] Aug, Bipolar 1 disorder F31.9 ; Borderline in tellectual functioning R41.83 and Extreme poverty Z59.5 [facility] [address] [address] Aug, Borderline intellectual functioning R41. 83 and Bipolar disorder, in partial remission, most recent episode manic F31.73 [place] [address] [address] Aug, Low back pain M54.5 [place] [address] [address] Aug, Borderline intellectual functioning R41. 83 and Bipolar disorder, in partial remission, most recent episode manic F31.73 [place] [address] [address] July, Acute superficial gastritis without hemo rrhage K29.00 ; Low back pain M54.5 and Other chronic pain G89.29 [facility] [id number] [place] [address] July, [facility] [address] [address] July, [facility] [id number] [place] [address] Jun, [facility] [address] [facility] [id number] [address] [place] [address] Jun, Bilateral lower extremity ed epi R60.0 [facility] [address] [id number] [place] [address] Jun, Borderline intellectual functioning R41. 83 and Bipolar disorder, in partial remission, most recent episode manic F31.73 [place] [address] [address] 03 Jun, 2018 [place] [address] [address] 20 May, 2018 Bronchitis J40 [place] [address] [address] 14 May, 2018 Screening for breast cancer Z12.31 and E ncounter for immunization Z23 [place] [address] [address] 06 May, 2018 Bipolar 1 disorder F31.9 ; Borderline in tellectual functioning R41.83 and Extreme poverty Z59.5 [place] [address] [address] 11 Apr, 2018 [place] [address] [address] 07 Apr, 2018 Bipolar 1 disorder F31.9 ; Borderline in tellectual functioning R41.83 and Extreme poverty Z59.5 [place] [address] [address] 05 Apr, 2018 Irritable bowel syndrome with diarrhea K 58.0 and Dental abscess K04.7 [place] [address] [address] Mar, [place] [address] [address] Mar, [place] [address] [address] 16 Mar, 2018 Bipolar 1 disorder F31.9 ; Borderline in tellectual functioning R41.83 and Extreme poverty Z59.5 [place] [address] [address] Mar, Hypertriglyceridemia E78.1 [place] [address] [address] 08 Mar, 2018 Borderline intellectual functioning R41. 83 and Bipolar disorder, in partial remission, most recent episode manic F31.73 [place] [address] [place] [id number] Mar, Bipolar 1 disorder F31.9 ; Borderline in tellectual functioning R41.83 and Extreme poverty Z59.5 [place] [address] [address] Feb, Generalized abdominal pain R10.84 and Di arrhea, unspecified type R19.7 [place] [address] [address] Feb, [place] [address] [place] [address] Feb, Myalgia M79.10 and Nausea R11.0 [place] [address] [address] Feb, Bipolar 1 disorder F31.9 ; Borderline in tellectual functioning R41.83 and Extreme poverty Z59.5 [place] [address] [address] Feb, [place] [address] [address] Feb, Diabetes E11.9 ; Hyperglycemia R73.9 and Diarrhea, unspecified R19.7 [place] [address] [address] Feb, Diarrhea, unspecified type R19.7 ; Abdom inal pain R10.9 and Encounter for immunization Z23 [place] [address] [address] Jan, Bipolar 1 disorder F31.9 ; Borderline in tellectual functioning R41.83 and Extreme poverty Z59.5 [place] [address] [address] Dec, Bipolar 1 disorder F31.9 ; Borderline in tellectual functioning R41.83 and Extreme poverty Z59.5 [place] [address] [address] 24 Nov, 2017 [place] [address] [address] Nov, Hypertriglyceridemia E78.1 [place] [address] [address] 20 Nov, 2017 Bipolar 1 disorder F31.9 ; Borderline in tellectual functioning R41.83 and Extreme poverty Z59.5 [place] [address] [address] 18 Nov, 2017 Type 2 diabetes mellitus with complicati on E11.8 [place] [address] [address] Nov, Borderline intellectual functioning R41. 83 and Bipolar disorder, in partial remission, most recent episode manic F31.73 [place] [address] [address] Nov, Type 2 diabetes mellitus with complicati on E11.8 [place] [address] [address] Nov, Bipolar 1 disorder F31.9 ; Borderline in tellectual functioning R41.83 and Extreme poverty Z59.5 [place] [address] [address] Nov, Type 2 diabetes mellitus with complicati on E11.8 ; Pain of left upper arm M79.622 ; Pain in right upper arm M79.621 ; Hyperglycemia R73.9 ; Lumbago with sciatica, left side M54.42 and Other chronic pain G89.29 [place] [address] [address] Oct, Bipolar 1 disorder F31.9 ; Borderline in tellectual functioning R41.83 and Extreme poverty Z59.5 [place] [address] [address] Oct, Type 2 diabetes mellitus with hyperglyce didi E11.65 ; FPC current use of insulin Z79.4 and Other acute gastritis without hemorrhage K29.00 [place] [address] [address] Oct, Bipolar 1 disorder F31.9 ; Borderline in tellectual functioning R41.83 and Extreme poverty Z59.5 [place] [address] [address] Sep, Diarrhea, unspecified R19.7 and Vomiting , unspecified R11.10 [place] [address] [address] Aug, Type 2 diabetes mellitus with complicati on E11.8 [place] [address] [address] Aug, [place] [address] [address] Aug, Bipolar 1 disorder F31.9 ; Borderline in tellectual functioning R41.83 and Extreme poverty Z59.5 [place] [address] [address] Aug, Borderline intellectual functioning R41. 83 and Bipolar disorder, in partial remission, most recent episode manic F31.73 [place] [address] [address] Aug, Bipolar 1 disorder F31.9 [place] [address] [address] Aug, [place] [address] [address] Aug, [place] [address] [address] Aug, Bipolar 1 disorder F31.9 ; Borderline in tellectual functioning R41.83 and Extreme poverty Z59.5 [place] [address] [address] July, Type 2 diabetes mellitus with complicati on E11.8 [place] [address] [address] July, Bipolar 1 disorder F31.9 ; Borderline in tellectual functioning R41.83 and Extreme poverty Z59.5 [place] [address] [place] [address] Jun, Bipolar 1 disorder F31.9 ; Borderline in tellectual functioning R41.83 and Extreme poverty Z59.5 [place] [address] [address] Jun, Bipolar 1 disorder F31.9 ; Borderline in tellectual functioning R41.83 and Extreme poverty Z59.5 [place] [address] [address] Jun, Bipolar 1 disorder F31.9 ; Borderline in tellectual functioning R41.83 and Extreme poverty Z59.5 [place] [address] [address] May, Urinary tract infection without hematuri a, site unspecified N39.0 [place] [address] [address] May, Bipolar 1 disorder F31.9 ; Borderline in tellectual functioning R41.83 and Extreme poverty Z59.5 [place] [address] [address] Apr, Diabetes E11.9 and Breast cancer screeni ng Z12.31 [place] [address] [address] Apr, Bipolar 1 disorder F31.9 and 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 [place] [address] [address] Mar, Bipolar 1 disorder F31.9 ; Borderline in tellectual functioning R41.83 and Extreme poverty Z59.5 [place] [address] [address] Mar, New daily persistent headache G44.52 ; L eg pain 729.5 and History of carpal tunnel release Z98.890 [place] [address] [address] Mar, Hyperlipidemia, unspecified E78.5 [place] [address] [address] Mar, Bipolar 1 disorder F31.9 ; Borderline in tellectual functioning R41.83 and Extreme poverty Z59.5 [place] [address] [address] Feb, Bipolar 1 disorder F31.9 ; Borderline in tellectual functioning R41.83 and Extreme poverty Z59.5 [place] [address] [address] Feb, Diabetes E11.[address] [address] Feb, Viral syndrome B34.9 [place] [address] [address] Jan, Other viral agents as the cause of disea ses classified elsewhere B97.89 and Acute upper respiratory infection, unspecified J06.9 [place] [address] [address] Jan, Bipolar 1 disorder F31.9 and 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 [place] [address] [address] Jan, Bipolar 1 disorder F31.9 ; Borderline in tellectual functioning R41.83 and Extreme poverty Z59.5 [place] [address] [address] Dec, Diabetes E11.9 [place] [address] [address] Dec, Diabetes E11.9 and Encounter for immuniz ation Z23 [address] [address] Dec, Bipolar 1 disorder F31.9 ; Borderline in tellectual functioning R41.83 and Extreme poverty Z59.5 [facility] [id number] [place] [address] Dec, Back pain M54.9 [facility] [id number] [place] [address] Nov, [facility] [address] [address] Nov, Bipolar 1 disorder F31.9 ; Borderline in tellectual functioning R41.83 and Extreme poverty Z59.5 [place] [address] [address] Nov, Bipolar 1 disorder F31.9 ; Borderline in tellectual functioning R41.83 and Extreme poverty Z59.5 [place] [address] [address] Oct, Borderline intellectual functioning R41. 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 and Bipolar 1 disorder F31.9 [place] [address] [address] Sep, Bipolar 1 disorder F31.9 ; Borderline in tellectual functioning R41.83 and Extreme poverty Z59.5 [place] [address] [address] Aug, Diabetes E11.9 ; Hyperlipidemia, unspeci fied E78.5 and Lumbar radiculopathy M54.16 [place] [address] [address] Aug, Bipolar 1 disorder F31.9 ; Borderline in tellectual functioning R41.83 and Extreme poverty Z59.5 [place] [address] [address] Aug, [place] [address] [address] Aug, [place] [address] [address] Aug, [place] [address] [address] July, [place] [address] [address] July, Acute bilateral low back pain with right -sided sciatica M54.41 [place] [address] [address] July, Bipolar 1 disorder F31.9 ; Borderline in tellectual functioning R41.83 and Extreme poverty Z59.5 [place] [address] [address] July, Back pain M54.9 and Diabetes E11.9 [place] [address] [address] Jun, Bipolar 1 disorder F31.9 ; Borderline in tellectual functioning R41.83 and Extreme poverty Z59.5 [place] [address] [address] Jun, Bipolar 1 disorder F31.9 ; Borderline in tellectual functioning R41.83 and Extreme poverty Z59.5 [place] [address] [address] May, Visit for pelvic exam Z01.419 ; Acute va ginitis N76.0 and Diabetes E11.9 [place] [address] [address] May, Bipolar 1 disorder F31.9 ; Borderline in tellectual functioning R41.83 and Extreme poverty Z59.5 [place] [address] [address] May, [place] [address] [address] May, [place] [address] [address] May, Bipolar 1 disorder F31.9 ; Borderline in tellectual functioning R41.83 and Extreme poverty Z59.5 [place] [address] [address] May, Hyperlipidemia, unspecified E78.5 [place] [address] [address] Apr, Breast cancer screening Z12.39 [place] [address] [address] Mar, [place] [address] [address] Mar, Bipolar disorder, current episode mixed, unspecified F31.60 [place] [address] [address] Mar, Bipolar 1 disorder F31.9 ; Borderline in tellectual functioning R41.83 and Extreme poverty Z59.5 [place] [address] [address] Feb, Acute nasopharyngitis J00 [place] [address] [address] 27 Feb, 2016 Dental examination Z01.20 [place] [address] [address] 21 Feb, 2016 Dental cavities K02.9 and Chronic period ontitis, unspecified K05.30 [place] [address] [address] 13 Feb, 2016 Low back pain M54.5 and Extreme poverty Z59.5 [place] [address] [address] 08 Feb, 2016 [place] [address] [address] 05 Feb, 2016 Routine gynecological examination V72.31 ; Breast cancer screening Z12.39 and Herpes simplex type 1 infection B00.9 [place] [address] [address] 02 Feb, 2016 Diabetes E11.9 [place] [address] [address] 01 Feb, 2016 Encounter for dental examination and leti aning without abnormal findings Z01.20 [place] [address] [address] 22 Jan, 2016 Hyperlipidemia, unspecified E78.5 [place] [address] [address] 22 Jan, 2016 Bipolar 1 disorder F31.9 ; Borderline in tellectual functioning R41.83 and Extreme poverty Z59.5 [place] [address] [address] 18 Jan, 2016 Diabetes E11.9 [place] [address] [address] 17 Jan, 2016 Diabetes E11.9 [place] [address] [address] 14 Dec, 2015 Bipolar 1 disorder F31.9 ; Borderline in tellectual functioning R41.83 and Extreme poverty Z59.5 [place] [address] [address] 13 Dec, 2015 Bipolar disorder, current episode mixed, unspecified F31.60 and 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 [place] [address] [address] 16 Nov, 2015 Bipolar 1 disorder F31.9 ; Borderline in tellectual functioning R41.83 ; Extreme poverty Z59.5 and Non compliance with medical treatment Z91.19 [place] [address] [address] Oct, [place] [address] [address] Oct, Dental caries K02.9 [place] [address] [address] Oct, Low back pain M54.5 and Other chronic pa in G89.29 [place] [address] [address] Oct, Bipolar 1 disorder F31.9 ; Borderline in tellectual functioning R41.83 ; Extreme poverty Z59.5 and Non compliance with medical treatment Z91.19 [place] [address] [address] Oct, [place] [address] [address] Oct, [place] [address] [address] Oct, Dental examination Z01.20 [place] [address] [address] Oct, Bipolar 1 disorder F31.9 ; Borderline in tellectual functioning R41.83 ; Extreme poverty Z59.5 and Non compliance with medical treatment Z91.19 [place] [address] [address] Oct, [place] [address] [address] Sep, Type 2 diabetes mellitus with complicati on E11.8 [place] [address] [address] Sep, Bipolar disorder, current episode mixed, unspecified F31.60 [place] [address] [place] [id number] [place] [address] Sep, Bipolar disorder, current episode mixed, unspecified F31.60 [place] [address] [address] Sep, Bipolar disorder, in partial remission, most recent episode manic F31.73 ; 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 ; Extreme poverty Z59.5 and Non compliance with medical treatment Z91.19 [place] [address] [address] Aug, Bipolar disorder, in partial remission, most recent episode manic F31.73 ; 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 ; Extreme poverty Z59.5 and Non compliance with medical treatment Z91.19 [place] [address] [address] Aug, Bipolar disorder, in partial remission, most recent episode manic F31.73 ; 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 ; Extreme poverty Z59.5 and Non compliance with medical treatment Z91.19 [place] [address] [address] Aug, [place] [address] [address] July, Bipolar disorder, in partial remission, most recent episode manic F31.73 ; 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 ; Extreme poverty Z59.5 and Non compliance with medical treatment Z91.19 [place] [address] [address] July, Bipolar disorder, current episode mixed, unspecified F31.60 [place] [address] [address] July, Bipolar disorder, in partial remission, most recent episode manic F31.73 ; 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 ; Extreme poverty Z59.5 and Non compliance with medical treatment Z91.19 [place] [address] [address] July, long term care pharmacist current use of opiate analgesi c Z79.891 and Chronic pain G89.29 [place] [address] [address] Jun, [facility] current use of opiate analgesi c Z79.891 and Bipolar 1 disorder F31.9 [place] [address] [address] Jun, [place] [address] [address] Jun, [place] [address] [address] Jun, [place] [address] [address] Jun, Bipolar disorder, in partial remission, most recent episode manic F31.73 ; 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 and Non compliance with medical treatment Z91.19 [place] [address] [address] May, Bipolar disorder, in partial remission, most recent episode manic F31.73 ; 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 and Non compliance with medical treatment Z91.19 [place] [address] [address] May, Bipolar disorder, in partial remission, most recent episode manic F31.73 [place] [address] [address] May, Diabetes E11.9 and Chronic pain G89.29 [place] [address] [address] May, [place] [address] [address] May, Bipolar disorder, in partial remission, most recent episode manic F31.73 ; Non compliance with medical treatment Z91.19 and 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 [place] [address] [address] May, Type 2 diabetes mellitus with complicati on E11.8 and Back pain M54.[address] [address] May, Bipolar disorder, in partial remission, most recent episode manic F31.73 and 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 [place] [address] [address] Apr, [address] [address] Apr, [place] [address] [address] Apr, [address] [address] Apr, Diabetes E11.9 ; Irritable bowel syndrom e with diarrhea K58.0 and Lumbar radiculopathy M54.[address] [address] Apr, Breast screening Z12.[address] [address] 02 Apr, 2015 Bipolar disorder, in partial remission, most recent episode manic F31.73 ; Non compliance with medical treatment Z91.19 and 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 [place] [address] [address] Mar, Edema, unspecified type R60.9 and Type 2 diabetes mellitus with complication E11.[address] [address] Mar, Bipolar disorder, in partial remission, most recent episode manic F31.73 ; Non compliance with medical treatment Z91.19 ; 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 and Extreme poverty Z59.5 [place] [address] [address] 14 Mar, 2015 Bipolar disorder, current episode mixed, unspecified F31.60 ; 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 ; Extreme poverty Z59.5 and Generalized anxiety disorder F41.1 [place] [address] [address] 12 Mar, 2015 Bipolar disorder, in partial remission, most recent episode manic F31.73 ; 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 and Extreme poverty Z59.5 [place] [address] [address] Feb, Bipolar disorder, in partial remission, most recent episode manic F31.73 ; 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 and Extreme poverty Z59.5 [place] [address] [address] Feb, Bipolar disorder, in partial remission, most recent episode manic F31.73 ; 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 and Extreme poverty Z59.5 [place] [address] [address] Feb, [place] [address] [address] Jan, Type 2 diabetes mellitus with complicati on E11.8 and Petechiae R23.3 [place] [address] [address] Jan, Type 2 diabetes mellitus with complicati on E11.8 ; Edema, unspecified R60.9 ; Petechiae R23.3 and Diabetes E11.9 [place] [address] [address] Jan, Bipolar disorder, in partial remission, most recent episode manic F31.73 ; 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 and Extreme poverty Z59.5 [place] [address] [address] Jan, Bipolar disorder, in partial remission, most recent episode manic F31.73 ; 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 and Extreme poverty Z59.5 [facility] [address] [address] Dec, Bipolar disorder, in partial remission, most recent episode manic F31.73 [facility] [address] [address] Dec, Edema, due to unspecified malnutrition t ype, unspecified edema R60.9 and Essential hypertension I10 [place] [address] [address] Dec, Bipolar disorder, in partial remission, most recent episode manic F31.73 [place] [address] [address] Nov, Bipolar I disorder, most recent episode (or current) mixed, unspecified 296.60 [place] [address] [address] Nov, Stress incontinence, female 625.6 ; Back pain 724.5 and Leg pain 729.5 [place] [address] [address] Nov, Generalized anxiety disorder 300.02 and Bipolar II disorder 296.89 [place] [address] [address] Nov, Bipolar I disorder, most recent episode (or current) mixed, unspecified 296.60 [facility] [address] [address] Oct, [facility] [address] [address] Oct, [facility] [address] [address] Oct, [facility] [address] [address] Oct, Bipolar I disorder, most recent episode (or current) mixed, unspecified 296.60 [facility] [address] [place] [id number] [place] [address] Sep, Diabetes 250.00 [facility] [address] [address] Sep, Bipolar I disorder, most recent episode (or current) mixed, unspecified 296.60 [facility] [address] [address] Sep, [facility] [address] [address] Sep, [facility] [address] [address] Sep, Bipolar I disorder, most recent episode (or current) mixed, unspecified 296.60 [facility] [address] [address] Sep, Bipolar I disorder, most recent episode (or current) mixed, unspecified 296.60 [facility] [address] [address] Sep, [facility] [address] [address] Sep, Anxiety 300.00 ; Diabetes 250.00 and Hyp erlipidemia 272.4 [facility] [address] [address] Aug, [facility] [address] [address] Aug, [facility] [address] [address] Aug, [facility] [address] [address] Aug, Bipolar I disorder, most recent episode (or current) mixed, unspecified 296.60 [facility] [address] [address] Aug, Generalized anxiety disorder 300.02 and Bipolar II disorder 296.89 [facility] [address] [place] [id number] [place] [address] July, Bipolar I disorder, most recent episode (or current) mixed, unspecified 296.60 [facility] [address] [place] [id number] [place] [address] July, Cough 786.2 [facility] [address] [place] [address] [id number] [place] [address] July, Bipolar I disorder, most recent episode (or current) mixed, unspecified 296.60 [facility] [address] [place] [id number] [place] [address] Jun, Diabetes 250.00 [facility] [address] [place] [address] [id number] [place] [address] Jun, [facility] [address] [place] [address] [id number] [place] [address] Jun, [facility] [address] [place] [address] [id number] [place] [address] May, [facility] [address] [place] [address] [id number] [place] [address] May, [facility] [address] [place] [id number] [place] [address] May, [facility] [address] [id number] [place] [address] May, [facility] [address] [place] [id number] [place] [address] May, [facility] [address] [place] [address] [id number] [place] [address] May, [facility] [address] [place] [address] [id number] [place] [address] Apr, [facility] [address] [place] [address] [id number] [place] [address] Apr, [facility] [address] [id number] [place] [address] Apr, [facility] [address] [place] [address] [id number] [place] [address] 11 Apr, 2014 [facility] [place] [facility] [address] [id number] [place] [address] Apr, [facility] [place] [facility] [address] [id number] [place] [address] Apr, [facility] [place] [facility] [address] [id number] [place] [address] Apr, [facility] [place] [facility] [address] [id number] [place] [address] Apr, [facility] [place] [facility] [address] [id number] [place] [address] Mar, [facility] [place] [facility] [address] [id number] [place] [address] Mar, [facility] [place] [facility] [address] [id number] [place] [address] Mar, [facility] [place] [facility] [address] [id number] [place] [address] Mar, [facility] [place] [facility] [address] [id number] [place] [address] Mar, [facility] [place] [facility] [address] [id number] [place] [address] Mar, [facility] [place] [facility] [address] [id number] [place] [address] Mar, [facility] [place] [facility] [address] [id number] [place] [address] Mar, [facility] [place] [facility] [address] [id number] [place] [address] Feb, [facility] [place] [facility] [address] [id number] [place] [address] Feb, [facility] [place] [facility] [address] [id number] [place] [address] Feb, [facility] [place] [facility] [address] [id number] [place] [address] Feb, [facility] [place] [facility] [address] [id number] [place] [address] Feb, [facility] [place] [facility] [address] [id number] [place] [address] Feb, [facility] [place] [facility] [address] [id number] [place] [address] Feb, [facility] [place] [facility] [address] [id number] [place] [address] Feb, [facility] [place] [facility] [address] [facility] [id number] [place] [address] Feb, [facility] [place] [facility] [address] [id number] [place] [address] Feb, [facility] [place] [facility] [address] [id number] [place] [address] Jan, [facility] [place] [facility] [address] [id number] [place] [address] Jan, [facility] [place] [facility] [address] [id number] [place] [address] Jan, [facility] [place] [facility] [address] [id number] [place] [address] Jan, [facility] [place] [facility] [address] [id number] [place] [address] Jan, [facility] [place] [facility] [address] [id number] [place] [address] Jan, [facility] [place] [facility] [address] [id number] [place] [address] Jan, [facility] [place] [facility] [address] [id number] [place] [address] Jan, [facility] [place] [facility] [address] [id number] [place] [address] Jan, [facility] [place] [facility] [address] [id number] [place] [address] Jan, [facility] [place] [facility] [address] [id number] [place] [address] Jan, [facility] [place] [facility] [address] [id number] [place] [address] Jan, [facility] [place] [facility] [address] [id number] [place] [address] Jan, [facility] [place] [facility] [address] [id number] [place] [address] Jan, [facility] [place] [facility] [address] [id number] [place] [address] Jan, [facility] [place] [facility] [address] [id number] [place] [address] Dec, [facility] [place] [facility] [address] [id number] [place] [address] Dec, [facility] [place] [facility] [address] [id number] [place] [address] Dec, [facility] [place] [facility] [address] [id number] [place] [address] Dec, [facility] [place] [facility] [address] [id number] [place] [address] Dec, [facility] [place] [facility] [address] [id number] [place] [address] Dec, [facility] [place] [facility] [address] [id number] [place] [address] Dec, [facility] [place] [facility] [address] [id number] [place] [address] Dec, [facility] [place] [facility] [address] [id number] [place] [address] Nov, 2013 [facility] [place] [facility] [address] [id number] [place] [address] 25 Nov, 2013 [facility] [place] [facility] [address] [id number] [place] [address] Nov, 2013 [facility] [place] [facility] [address] [id number] [place] [address] 10 Nov, 2013 [facility] [place] [facility] [address] [id number] [place] [address] 08 Sep, 2013 [facility] [place] [facility] [address] [id number] [place] [address] 08 Sep, 2013 [facility] [place] [facility] [address] [id number] [place] [address] 08 Nov, 2013 [facility] [place] [facility] [address] [id number] [place] [address] 08 Sep, 2013 [facility] [place] [facility] [address] [id number] [place] [address] 08 Sep, 2013 [facility] [place] [facility] [address] [id number] [place] [address] 08 Nov, 2013 [facility] [place] [facility] [address] [id number] [place] [address] 04 Nov, 2013 [facility] [place] [facility] [address] [id number] [place] [address] 04 Nov, 2013 [facility] [place] [facility] [address] [id number] [place] [address] 03 Nov, 2013 [facility] [place] [facility] [address] [id number] [place] [address] Nov, 2013 [facility] [place] [facility] [address] [id number] [place] [address] Nov, 2013 [facility] [place] [facility] [address] [id number] [place] [address] Oct, [facility] [place] [facility] [address] [id number] [place] [address] Oct, [facility] [place] [facility] [address] [id number] [place] [address] Oct, [facility] [place] [facility] [address] [id number] [place] [address] Oct, [facility] [place] [facility] [address] [id number] [place] [address] Oct, [facility] [place] [facility] [address] [id number] [place] [address] Oct, [facility] [place] [facility] [address] [id number] [facility] [address] Oct, [facility] [place] [facility] [address] [id number] [place] [address] Oct, [facility] [place] [facility] [address] [facility] [id number] [facility] [place] [address] Oct, [facility] [place] [facility] [address] [id number] [place] [address] Oct, [facility] [place] [facility] [address] [facility] [id number] [place] [address] Oct, [facility] [place] [facility] [address] [id number] [place] [address] Oct, [facility] [place] [facility] [address] [facility] [id number] [place] [address] Oct, [facility] [place] [facility] [address] [id number] [place] [address] Oct, [facility] [place] [facility] [address] [facility] [id number] [place] [address] Sep, [facility] [place] [facility] [address] [id number] [place] [address] Sep, [facility] [place] [facility] [address] [id number] [place] [address] Sep, [facility] [place] [facility] [address] [id number] [place] [address] Sep, [facility] [place] [facility] [address] [facility] [id number] [place] [address] Sep, [facility] [address] [id number] [place] [address] Sep, [facility] [address] [facility] [id number] [place] [address] Sep, [facility] [address] [facility] [id number] [place] [address] Sep, [facility] [address] [facility] [id number] [facility] [place] [address] Aug, [facility] [address] [facility] [id number] [facility] [place] [address] Aug, [facility] [address] [facility] [id number] [place] [address] Aug, [facility] [address] [facility] [id number] [place] [address] Aug, [facility] [address] [facility] [id number] [place] [address] Aug, [facility] [address] [facility] [id number] [place] [address] Aug, [facility] [address] [facility] [id number] [place] [address] Aug, [facility] [address] [facility] [id number] [place] [address] Aug, [facility] [address] [facility] [id number] [place] [address] July, [facility] [address] [facility] [id number] [place] [address] July, [facility] [address] [facility] [id number] [place] [address] July, [facility] [address] [id number] [place] [address] July, [facility] [address] [id number] [place] [address] July, [facility] [address] [facility] [id number] [place] [address] July, [facility] [address] [facility] [id number] [place] [address] July, [facility] [address] [facility] [id number] [place] [address] July, [facility] [address] [id number] [place] [address] Jun, [facility] [address] [facility] [id number] [place] [address] Jun, [facility] [address] [facility] [id number] [place] [address] Jun, [facility] [address] [facility] [id number] [place] [address] Jun, [facility] [address] [facility] [id number] [place] [address] Jun, [facility] [address] [facility] [id number] [place] [address] Jun, [facility] [address] [facility] [id number] [place] [address] Jun, [facility] [address] [facility] [id number] [place] [address] Jun, [facility] [address] [facility] [id number] [place] [address] Jun, [facility] [address] [id number] [place] [address] Jun, [facility] [address] [facility] [id number] [place] [address] Jun, [facility] [address] [facility] [id number] [place] [address] Jun, [facility] [address] [facility] [id number] [place] [address] May, [facility] [place] [facility] [address] [id number] [place] [address] May, [facility] [place] [facility] [address] [id number] [place] [address] May, [facility] [place] [facility] [address] [id number] [place] [address] May, [facility] [place] [facility] [address] [id number] [place] [address] May, [facility] [place] [facility] [address] [id number] [place] [address] May, [facility] [place] [facility] [address] [facility] [id number] [facility] [place] [address] May, [facility] [place] [facility] [address] [facility] [id number] [place] [address] May, [facility] [place] [facility] [address] [facility] [id number] [facility] [place] [address] May, [facility] [place] [facility] [address] [facility] [id number] [facility] [place] [address] May, [facility] [place] [facility] [address] [facility] [id number] [facility] [place] [address] May, [facility] [place] [facility] [address] [facility] [id number] [facility] [place] [address] May, [facility] [place] [facility] [address] [facility] [id number] [place] [address] May, [facility] [place] [facility] [address] [id number] [place] [address] May, [facility] [place] [facility] [address] [facility] [id number] [facility] [place] [address] Apr, [facility] [place] [facility] [address] [id number] [facility] [place] [address] Apr, [facility] [place] [facility] [address] [id number] [place] [address] Apr, [facility] [place] [facility] [address] [id number] [place] [address] Apr, [facility] [place] [facility] [address] [facility] [id number] [facility] [place] [address] Apr, [facility] [place] [facility] [address] [facility] [id number] [place] [address] Apr, [facility] [place] [facility] [address] [facility] [id number] [place] [address] Mar, [facility] [place] [facility] [address] [id number] [place] [address] Mar, [facility] [place] [facility] [address] [id number] [place] [address] Mar, [facility] [place] [facility] [address] [facility] [id number] [place] [address] Mar, [facility] [place] [facility] [address] [id number] [place] [address] Mar, [facility] [place] [facility] [address] [id number] [place] [address] Mar, [facility] [place] [facility] [address] [id number] [place] [address] Mar, [facility] [place] [facility] [address] [id number] [place] [address] Mar, [facility] [place] [facility] [address] [id number] [place] [address] Mar, [facility] [place] [facility] [address] [id number] [place] [address] Mar, [facility] [place] [facility] [address] [id number] [place] [address] Mar, [facility] [place] [facility] [address] [id number] [place] [address] Mar, [facility] [place] [facility] [address] [id number] [place] [address] Mar, [facility] [place] [facility] [address] [id number] [place] [address] Mar, [facility] [place] [facility] [address] [id number] [place] [address] Feb, [facility] [place] [facility] [address] [id number] [place] [address] Feb, [facility] [place] [facility] [address] [id number] [place] [address] Feb, [facility] [place] [facility] [address] [id number] [place] [address] Feb, [facility] [place] [facility] [address] [id number] [place] [address] Feb, [facility] [place] [facility] [address] [id number] [place] [address] Feb, 2012 [facility] [place] [facility] [address] [id number] [place] [address] Feb, 2012 [facility] [place] [facility] [address] [id number] [place] [address] Feb, 2012 [facility] [place] [facility] [address] [id number] [place] [address] Feb, 2012 [facility] [place] [facility] [address] [id number] [place] [address] Feb, 2012 [facility] [place] [facility] [address] [id number] [place] [address] Feb, 2012 [facility] [place] [facility] [address] [id number] [place] [address] Feb, 2012 [facility] [place] [facility] [id number] [place] [address] Feb, 2012 [facility] [place] [facility] [address] [id number] [place] [address] Feb, 2012 [facility] [place] [facility] [address] [id number] [place] [address] Feb, 2012 [facility] [place] [facility] [address] [id number] [place] [address] Feb, 2012 [facility] [place] [facility] [address] [id number] [place] [address] 24 Dec, 2012 [facility] [place] [facility] [address] [id number] [place] [address] 24 Dec, 2012 [facility] [place] [facility] [address] [id number] [place] [address] Dec, [facility] [place] [facility] [address] [id number] [place] [address] Dec, 2012 [facility] [place] [facility] [address] [id number] [place] [address] Dec, 2012 [facility] [place] [facility] [address] [id number] [place] [address] 16 Dec, 2012 [facility] [place] [facility] [address] [facility] [id number] [place] [address] 14 Dec, 2012 [facility] [place] [facility] [address] [facility] [id number] [place] [address] 14 Dec, 2012 [facility] [place] [facility] [address] [id number] [place] [address] 10 Dec, 2012 [facility] [place] [facility] [address] [id number] [place] [address] 10 Dec, 2012 [facility] [place] [facility] [address] [facility] [id number] [place] [address] 10 Dec, 2012 [facility] [place] [facility] [address] [id number] [place] [address] 10 Dec, 2012 [facility] [place] [facility] [address] [id number] [place] [address] 03 Dec, 2012 [facility] [place] [facility] [address] [id number] [place] [address] 25 Nov, 2012 [facility] [place] [facility] [address] [id number] [place] [address] 20 Nov, 2012 [facility] [place] [facility] [address] [id number] [place] [address] 18 Nov, 2012 [facility] [place] [facility] [address] [id number] [place] [address] 16 Nov, 2012 [facility] [place] [facility] [address] [id number] [place] [address] 12 Nov, 2012 [facility] [place] [facility] [address] [id number] [place] [address] 11 Nov, 2012 [facility] [place] [facility] [address] [id number] [place] [address] 05 Sep, 2012 [facility] [place] [facility] [address] [id number] [place] [address] 15 Oct, 2012 [facility] [place] [facility] [address] [id number] [place] [address] 03 Oct, 2012 [facility] [place] [facility] [address] [id number] [facility] [place] [address] 24 Sep, 2012 [facility] [place] [facility] [address] [id number] [place] [address] Sep, [facility] [place] [facility] [address] [facility] [id number] [place] [address] Sep, [facility] [place] [facility] [address] [id number] [place] [address] 17 Sep, 2012 [facility] [place] [facility] [address] [facility] [id number] [place] [address] 15 Sep, 2012 [facility] [place] [facility] [address] [facility] [id number] [facility] [place] [address] Sep, [facility] [place] [facility] [address] [id number] [place] [address] Sep, [facility] [place] [facility] [address] [id number] [place] [address] Aug, [facility] [place] [facility] [address] [id number] [place] [address] 18 Aug, 2012 [facility] [place] [facility] [address] [id number] [place] [address] 16 Aug, 2012 [facility] [place] [facility] [address] [id number] [place] [address] Aug, [facility] [place] [facility] [address] [id number] [place] [address] Aug, [facility] [place] [facility] [address] [id number] [place] [address] Aug, [facility] [place] [facility] [address] [facility] [id number] [place] [address] Aug, [facility] [place] [facility] [address] [id number] [place] [address] Aug, [facility] [place] [facility] [address] [id number] [place] [address] July, [facility] [place] [facility] [address] [id number] [place] [address] July, [facility] [place] [facility] [address] [id number] [place] [address] July, [facility] [place] [facility] [address] [facility] [id number] [place] [id number] July, [facility] [place] [facility] [address] [id number] [place] [address] July, [facility] [place] [facility] [address] [id number] [place] [address] Jun, [facility] [place] [facility] [address] [id number] [place] [address] May, [facility] [place] [facility] [address] [id number] [place] [address] May, [facility] [place] [facility] [address] [id number] [place] [address] May, [facility] [place] [facility] [address] [id number] [place] [address] Apr, [facility] [place] [facility] [address] [id number] [place] [address] Apr, [facility] [place] [facility] [address] [id number] [place] [address] Apr, [facility] [place] [facility] [address] [id number] [place] [address] Mar, [facility] [place] [facility] [address] [id number] [place] [address] Mar, [facility] [place] [facility] [address] [id number] [place] [address] Mar, [facility] [place] [facility] [address] [id number] [place] [address] Mar, [facility] [place] [facility] [address] [id number] [place] [address] Mar, [facility] [place] [facility] [address] [id number] [place] [address] Mar, [facility] [place] [facility] [address] [id number] [place] [address] Mar, [facility] [place] [facility] [address] [id number] [place] [address] Feb, [facility] [place] [facility] [address] [id number] [place] [address] Feb, [facility] [place] [facility] [address] [id number] [place] [address] Feb, [facility] [place] [facility] [address] [id number] [place] [address] Feb, [facility] [place] [facility] [address] [id number] [place] [address] Feb, [facility] [place] [facility] [address] [id number] [place] [address] Feb, [facility] [place] [facility] [address] [id number] [place] [address] Feb, [facility] [place] [facility] [address] [id number] [place] [address] Feb, [facility] [place] [facility] [address] [id number] [place] [address] Jan, [facility] [place] [facility] [address] [id number] [place] [address] Jan, [facility] [place] [facility] [address] [id number] [place] [address] Jan, [facility] [place] [facility] [address] [id number] [place] [address] Jan, [facility] [place] [facility] [address] [id number] [place] [address] Jan, [facility] [place] [facility] [address] [id number] [place] [address] Jan, [facility] [place] [facility] [address] [id number] [place] [address] Jan, [facility] [place] [facility] [address] [id number] [place] [address] Jan, [facility] [place] [facility] [address] [id number] [place] [address] Jan, [facility] [place] [facility] [address] [id number] [place] [address] Jan, [facility] [place] [facility] [address] [id number] [place] [address] Jan, [facility] [place] [facility] [address] [id number] [place] [address] Jan, [facility] [place] [facility] [address] [id number] [place] [address] Jan, [facility] [place] [facility] [address] [id number] [place] [address] Jan, [facility] [place] [facility] [address] [id number] [place] [address] Jan, [facility] [place] [facility] [address] [id number] [place] [address] Jan, [facility] [place] [facility] [address] [id number] [place] [address] Dec, [facility] [place] [facility] [address] [id number] [place] [address] Dec, [facility] [place] [facility] [address] [id number] [place] [address] Dec, [facility] [place] [facility] [address] [id number] [place] [address] Dec, [facility] [place] [facility] [address] [id number] [place] [address] Dec, [facility] [place] [facility] [address] [id number] [place] [address] Dec, [facility] [place] [facility] [address] [id number] [place] [address] Dec, [facility] [place] [facility] [address] [id number] [place] [address] Dec, [facility] [place] [facility] [address] [id number] [place] [address] 08 Dec, 2011 [facility] [place] [facility] [address] [id number] [place] [address] 05 Dec, 2011 [facility] [place] [facility] [address] [id number] [place] [address] 18 Nov, 2011 [facility] [place] [facility] [address] [id number] [place] [address] 13 Nov, 2011 [facility] [place] [facility] [address] [id number] [place] [address] 24 Oct, 2011 [facility] [place] [facility] [address] [id number] [place] [address] Oct, [facility] [place] [facility] [address] [id number] [place] [address] Oct, [facility] [place] [facility] [address] [id number] [place] [address] Oct, [facility] [place] [facility] [address] [id number] [place] [address] Oct, [facility] [place] [facility] [address] [id number] [place] [address] Oct, [facility] [place] [facility] [address] [id number] [place] [address] Oct, [facility] [place] [facility] [address] [id number] [place] [address] Sep, [facility] [place] [facility] [address] [id number] [place] [address] Aug, [facility] [place] [facility] [address] [id number] [place] [address] Aug, [facility] [place] [facility] [address] [id number] [place] [address] Aug, [facility] [place] [facility] [address] [id number] [place] [address] Aug, [facility] [place] [facility] [address] [id number] [place] [address] Aug, [facility] [place] [facility] [address] [id number] [place] [address] July, [facility] [place] [facility] [address] [id number] [facility] [place] [address] July, [facility] [place] [facility] [address] [id number] [facility] [place] [address] July, [facility] [place] [facility] [address] [id number] [facility] [place] [address] Jun, [facility] [place] [facility] [address] [id number] [facility] [place] [address] Jun, [facility] [place] [facility] [address] [id number] [facility] [place] [address] Jun, [facility] [place] [facility] [address] [id number] [place] [address] Jun, [facility] [place] [facility] [address] [id number] [facility] [place] [address] May, [facility] [place] [facility] [address] [id number] [place] [address] 30 May, 2011 [facility] [place] [facility] [address] [id number] [place] [address] 29 May, 2011 [facility] [place] [facility] [address] [id number] [place] [address] 28 May, 2011 [facility] [place] [facility] [address] [id number] [place] [address] May, [facility] [place] [facility] [address] [id number] [place] [address] May, [facility] [address] [id number] [place] [address] May, [facility] [address] [id number] [place] [address] May, [facility] [address] [id number] [place] [address] 08 May, 2011 [facility] [address] [id number] [place] [address] 05 May, 2011 [facility] [address] [id number] [place] [address] May, [facility] [address] [id number] [place] [address] May, [facility] [address] [id number] [place] [address] Mar, [facility] [address] [id number] [place] [address] Mar, [facility] [address] [id number] [place] [address] Feb, [facility] [address] [id number] [place] [address] Feb, [facility] [address] [id number] [place] [address] Feb, [facility] [address] [id number] [place] [address] 15 Feb, 2011 [facility] [address] [id number] [place] [address] Feb, [facility] [address] [id number] [place] [address] Feb, [facility] [address] [id number] [place] [address] Feb, [facility] [address] [id number] [place] [address] Jan, [facility] [address] [id number] [place] [address] Jan, [facility] [address] [id number] [place] [address] Jan, [facility] [address] [id number] [place] [address] 17 Jan, 2011 [facility] [address] [id number] [place] [address] Jan, [facility] [address] [id number] [place] [address] Jan, [facility] [address] [id number] [place] [address] Dec, [facility] [address] [id number] [place] [address] Dec, [facility] [address] [id number] [place] [address] Dec, [facility] [address] [id number] [place] [address] July, [facility] [address] [id number] [place] [address] July, [facility] [address] [id number] [place] [address] Feb, [facility] [address] [id number] [place] [address] Jan, [facility] [address] [id number] [place] [address] Dec, [facility] [address] [id number] [place] [address] Dec, [facility] [address] [id number] [place] [address] Sep, [facility] [address] [id number] [place] [address] Aug, [facility] [address] [id number] [place] [address] Jun, [facility] [address] [id number] [place] [address] Jun, [facility] [address] [id number] [place] [address] Jan, [facility] [address] [id number] [place] [address] Jan, [facility] [address] [id number] [place] [address] 05 Jan, 2009 [facility] [address] [id number] [place] [address] Jan, [facility] [address] [id number] [place] [address] Dec, [facility] [address] [id number] [place] [address] Dec, [facility] [address] [id number] [place] [address] Dec, [facility] [address] [id number] [place] [address] Nov, [facility] [address] [id number] [place] [address] July, [facility] [address] [id number] [place] [address] May, [facility] [address] [id number] [place] [address] Apr, [facility] [address] [id number] [place] [address] Feb, [facility] [address] [id number] [place] [address] Dec, IMMUNIZATIONS No Known Immunizations SOCIAL HISTORY Never Assessed REASON FOR VISIT PLAN OF CARE VITAL SIGNS MEDICATIONS Unknown Medications RESULTS No Results PROCEDURES Procedure Date Ordered Result Body Site PSYTX PT&/FAMILY 45 MINUTES Apr 21, 2013 INSTRUCTIONS MEDICATIONS ADMINISTERED No Known Medications MEDICAL [...]
--- OUTSIDE RECORDS SUMMARY | 2019-06-22 19:34 | XMS REPORT ---
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 Active 255916873 Problem Diabetes E11.9 Active 956044634 Problem Type 2 diabetes mellitus with complication E11.8 Active 669600060 Problem Post laminectomy syndrome M96.1 Acti ve 26958536 Problem Bipolar 1 disorder F31.9 Active 3 66005361 Problem New daily persistent headache G44.52 Active 535681592 Problem Type 2 diabetes mellitus with hyperglycemia E11.65 Active 74390894 Problem Other chronic pain G89.29 Active 8 8770222 Problem Essential hypertension I10 Active 40504642 Problem Acute bilateral low back pain with right-sided sciatica M54.41 Active 571300583 Problem Bipolar disorder, in partial remission, most rec ent episode manic F31.73 Active 10176326 Problem Seasonal allergic rhinitis due to pollen J30.1 Active 46972116 Problem Hyperlipidemia, unspecified E78.5 Ac tive 31148029 Problem Eye exam normal Z01.00 Active 2438 19276 Problem Extreme poverty Z59.5 Active 1140 3006 Problem Lumbago with sciatica, left side M54.42 Active 480274376 Problem Hypertriglyceridemia E78.1 Active 322471992 Problem Insulin long-term use Z79.4 Active 479755664 Problem Rhinosinusitis J32.9 Active 64938 000 ALLERGIES No Information ENCOUNTERS Encounter Location Date Diagnosis [place] [id number] [place] [address] 08 Aug, 2019 [facility] [address] [address] 16 Jun, 2019 [facility] [address] [address] 07 Jun, 2019 [place] [address] [address] 02 Jun, 2019 [facility] [address] [address] 26 May, 2019 [place] [address] [address] 19 May, 2019 Spinal stenosis of lumbar region without neurogenic claudication M48.061 ; Segmental dysfunction of thoracic region M99.02 ; Segmental dysfunction of lumbar region M99.03 and Segmental dysfunction of sacral region M99.04 [place] [address] [address] 19 May, 2019 [place] [address] [address] May, Borderline intellectual functioning R41. 83 and Bipolar disorder, in partial remission, most recent episode manic F31.73 [place] [id number] [place] [address] 17 May, 2019 [facility] [address] [facility] [place] [id number] [address] [place] [address] 15 May, 2019 Diarrhea, unspecified type R 19.7 [place] [address] [id number] [place] [address] 09 May, 2019 Borderline intellectual functioning R41. 83 [place] [address] [address] 09 May, 2019 Type 2 diabetes mellitus with complicati on E11.8 [place] [address] [address] 09 May, 2019 Bipolar 1 disorder F31.9 ; Type 2 diabet es mellitus with complication E11.8 ; Pain of right thumb M79.644 ; Extreme poverty Z59.5 and Low back pain M54.5 [facility] [address] [address] May, [facility] [address] [address] 28 Apr, 2019 Bipolar 1 disorder F31.9 ; Borderline in tellectual functioning R41.83 and Extreme poverty Z59.5 [facility] [address] [facility] [place] [id number] [address] [place] [address] Apr, Seasonal allergic rhinitis d ue to pollen J30.1 [place] [address] [address] Apr, Essential hypertension I10 and Diabetes E11.9 [place] [address] [address] Apr, [place] [address] [address] Mar, Bipolar 1 disorder F31.9 ; Borderline in tellectual functioning R41.83 and Extreme poverty Z59.5 [place] [address] [address] Mar, Exercise counseling Z71.82 [place] [address] [address] Mar, [place] [address] [address] Mar, Bipolar disorder, in partial remission, most recent episode manic F31.73 and 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 [place] [address] [address] Mar, [place] [address] [address] Mar, Exercise counseling Z71.82 [place] [address] [address] Feb, Bipolar 1 disorder F31.9 ; Borderline in tellectual functioning R41.83 and Extreme poverty Z59.5 [facility] [address] [address] Feb, [facility] [address] [address] Feb, Type 2 diabetes mellitus with complicati on E11.8 [facility] [address] [facility] [place] [id number] [address] [place] [address] Feb, Acute low back pain without sciatica, unspecified back pain laterality M54.5 [facility] [address] [address] Feb, Bipolar 1 disorder F31.9 ; Borderline in tellectual functioning R41.83 and Extreme poverty Z59.5 [facility] [address] [address] Jan, Bipolar 1 disorder F31.9 ; Borderline in tellectual functioning R41.83 and Extreme poverty Z59.5 [facility] [address] [address] Jan, [facility] [address] [address] Jan, Type 2 diabetes mellitus with complicati on E11.8 [facility] [address] [address] Jan, Type 2 diabetes mellitus with complicati on E11.8 ; Dysuria R30.0 and Diarrhea, unspecified type R19.7 [facility] [address] [address] Jan, Bipolar 1 disorder F31.9 ; Borderline in tellectual functioning R41.83 and Extreme poverty Z59.5 [facility] [address] [address] Dec, [facility] [address] [address] Dec, [facility] [address] [address] Dec, [facility] [address] [address] Dec, [facility] [address] [address] Dec, Rhinosinusitis J32.9 [facility] [address] [address] Dec, [facility] [address] [address] Dec, Bipolar 1 disorder F31.9 ; Borderline in tellectual functioning R41.83 and Extreme poverty Z59.5 [place] [address] [address] Dec, Type 2 diabetes mellitus with complicati on E11.8 and Type 2 diabetes mellitus with hyperglycemia E11.65 [place] [address] [address] Dec, [place] [address] [address] Dec, Type 2 diabetes mellitus with complicati on E11.8 ; Insulin long-term use Z79.4 ; Hyperglycemia R73.9 and Yeast infection B37.9 [place] [address] [address] Dec, Encounter for immunization Z23 [place] [address] [address] Nov, [place] [address] [address] Nov, Bipolar 1 disorder F31.9 ; Borderline in tellectual functioning R41.83 and Extreme poverty Z59.5 [place] [address] [address] Nov, [facility] [address] [address] Nov, [facility] [address] [address] Nov, Borderline intellectual functioning R41. 83 and Bipolar disorder, in partial remission, most recent episode manic F31.73 [facility] [address] [place] [id number] [place] [address] Nov, Epigastric abdominal pain R1 0.13 [facility] [address] [address] Nov, Bipolar 1 disorder F31.9 ; Borderline in tellectual functioning R41.83 and Extreme poverty Z59.5 [facility] [place] [address] [place] [address] [id number] [place] [address] Oct, Dysuria R30.0 and Acute cyst itis without hematuria N30.00 [facility] [address] [place] [id number] [place] [address] Oct, [facility] [address] [address] Oct, [place] [address] [address] Oct, Bipolar 1 disorder F31.9 ; Borderline in tellectual functioning R41.83 and Extreme poverty Z59.5 [place] [address] [address] Oct, [facility] [address] [address] Oct, [facility] [address] [address] Oct, Bipolar disorder, in partial remission, most recent episode manic F31.73 and 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 [facility] [address] [address] Oct, Bipolar 1 disorder F31.9 ; Borderline in tellectual functioning R41.83 and Extreme poverty Z59.5 [facility] [address] [id number] [place] [address] Oct, Diarrhea, unspecified type R19.7 [facility] [address] [facility] [id number] [place] [id number] Sep, Dental examination Z01.20 and Dental car ies K02.9 [facility] [address] [facility] [place] [id number] [address] [place] [address] Sep, Mouth pain K13.79 [facility] [id number] [place] [address] Sep, [facility] [address] [address] Sep, Bipolar 1 disorder F31.9 ; Borderline in tellectual functioning R41.83 and Extreme poverty Z59.5 [facility] [address] [place] [address] [id number] [place] [address] Sep, [facility] [address] [id number] [place] [address] Sep, [facility] [address] [address] Sep, Diabetes E11.9 ; Hyperglycemia R73.9 ; L eliseo term current use of insulin Z79.4 and Diarrhea, unspecified type R19.7 [facility] [id number] [place] [address] Sep, [facility] [address] [address] Sep, Bipolar 1 disorder F31.9 ; Borderline in tellectual functioning R41.83 and Extreme poverty Z59.5 [facility] [address] [address] Sep, [facility] [address] [address] Sep, [facility] [address] [address] Aug, Bipolar 1 disorder F31.9 ; Borderline in tellectual functioning R41.83 and Extreme poverty Z59.5 [place] [address] [address] Aug, Exercise counseling Z71.82 [facility] [address] [address] Aug, Bipolar 1 disorder F31.9 ; Borderline in tellectual functioning R41.83 and Extreme poverty Z59.5 [facility] [address] [address] Aug, Borderline intellectual functioning R41. 83 and Bipolar disorder, in partial remission, most recent episode manic F31.73 [place] [address] [address] Aug, Low back pain M54.5 [place] [address] [address] Aug, Borderline intellectual functioning R41. 83 and Bipolar disorder, in partial remission, most recent episode manic F31.73 [place] [address] [address] July, Acute superficial gastritis without hemo rrhage K29.00 ; Low back pain M54.5 and Other chronic pain G89.29 [facility] [id number] [place] [address] July, [facility] [address] [address] July, [facility] [address] [place] [id number] [place] [address] Jun, [facility] [address] [facility] [place] [id number] [address] [place] [address] Jun, Bilateral lower extremity ed epi R60.0 [facility] [address] [id number] [place] [address] Jun, Borderline intellectual functioning R41. 83 and Bipolar disorder, in partial remission, most recent episode manic F31.73 [place] [address] [address] 03 Jun, 2018 [place] [address] [address] 20 May, 2018 Bronchitis J40 [place] [address] [address] 14 May, 2018 Screening for breast cancer Z12.31 and E ncounter for immunization Z23 [place] [address] [address] 06 May, 2018 Bipolar 1 disorder F31.9 ; Borderline in tellectual functioning R41.83 and Extreme poverty Z59.5 [place] [address] [address] 11 Apr, 2018 [place] [address] [address] 07 Apr, 2018 Bipolar 1 disorder F31.9 ; Borderline in tellectual functioning R41.83 and Extreme poverty Z59.5 [place] [address] [address] 05 Apr, 2018 Irritable bowel syndrome with diarrhea K 58.0 and Dental abscess K04.7 [place] [address] [address] Mar, [place] [address] [address] Mar, [place] [address] [address] 16 Mar, 2018 Bipolar 1 disorder F31.9 ; Borderline in tellectual functioning R41.83 and Extreme poverty Z59.5 [place] [address] [address] Mar, Hypertriglyceridemia E78.1 [place] [address] [address] 08 Mar, 2018 Borderline intellectual functioning R41. 83 and Bipolar disorder, in partial remission, most recent episode manic F31.73 [place] [address] [place] [id number] Mar, Bipolar 1 disorder F31.9 ; Borderline in tellectual functioning R41.83 and Extreme poverty Z59.5 [place] [address] [address] Feb, Generalized abdominal pain R10.84 and Di arrhea, unspecified type R19.7 [place] [address] [address] Feb, [place] [address] [place] [address] Feb, Myalgia M79.10 and Nausea R11.0 [place] [address] [address] Feb, Bipolar 1 disorder F31.9 ; Borderline in tellectual functioning R41.83 and Extreme poverty Z59.5 [place] [address] [address] Feb, [place] [address] [address] Feb, Diabetes E11.9 ; Hyperglycemia R73.9 and Diarrhea, unspecified R19.7 [place] [address] [address] Feb, Diarrhea, unspecified type R19.7 ; Abdom inal pain R10.9 and Encounter for immunization Z23 [place] [address] [address] Jan, Bipolar 1 disorder F31.9 ; Borderline in tellectual functioning R41.83 and Extreme poverty Z59.5 [place] [address] [address] Dec, Bipolar 1 disorder F31.9 ; Borderline in tellectual functioning R41.83 and Extreme poverty Z59.5 [place] [address] [address] 24 Nov, 2017 [place] [address] [address] Nov, Hypertriglyceridemia E78.1 [place] [address] [address] 20 Nov, 2017 Bipolar 1 disorder F31.9 ; Borderline in tellectual functioning R41.83 and Extreme poverty Z59.5 [place] [address] [address] 18 Nov, 2017 Type 2 diabetes mellitus with complicati on E11.8 [place] [address] [address] Nov, Borderline intellectual functioning R41. 83 and Bipolar disorder, in partial remission, most recent episode manic F31.73 [place] [address] [address] Nov, Type 2 diabetes mellitus with complicati on E11.8 [place] [address] [address] Nov, Bipolar 1 disorder F31.9 ; Borderline in tellectual functioning R41.83 and Extreme poverty Z59.5 [place] [address] [address] Nov, Type 2 diabetes mellitus with complicati on E11.8 ; Pain of left upper arm M79.622 ; Pain in right upper arm M79.621 ; Hyperglycemia R73.9 ; Lumbago with sciatica, left side M54.42 and Other chronic pain G89.29 [place] [address] [address] Oct, Bipolar 1 disorder F31.9 ; Borderline in tellectual functioning R41.83 and Extreme poverty Z59.5 [place] [address] [address] Oct, Type 2 diabetes mellitus with hyperglyce didi E11.65 ; alf current use of insulin Z79.4 and Other acute gastritis without hemorrhage K29.00 [place] [address] [address] Oct, Bipolar 1 disorder F31.9 ; Borderline in tellectual functioning R41.83 and Extreme poverty Z59.5 [place] [address] [address] Sep, Diarrhea, unspecified R19.7 and Vomiting , unspecified R11.10 [place] [address] [address] Aug, Type 2 diabetes mellitus with complicati on E11.8 [place] [address] [address] Aug, [place] [address] [address] Aug, Bipolar 1 disorder F31.9 ; Borderline in tellectual functioning R41.83 and Extreme poverty Z59.5 [place] [address] [address] Aug, Borderline intellectual functioning R41. 83 and Bipolar disorder, in partial remission, most recent episode manic F31.73 [place] [address] [address] Aug, Bipolar 1 disorder F31.9 [place] [address] [address] Aug, [place] [address] [address] Aug, [place] [address] [address] Aug, Bipolar 1 disorder F31.9 ; Borderline in tellectual functioning R41.83 and Extreme poverty Z59.5 [place] [address] [address] July, Type 2 diabetes mellitus with complicati on E11.8 [place] [address] [address] July, Bipolar 1 disorder F31.9 ; Borderline in tellectual functioning R41.83 and Extreme poverty Z59.5 [place] [address] [place] [address] Jun, Bipolar 1 disorder F31.9 ; Borderline in tellectual functioning R41.83 and Extreme poverty Z59.5 [place] [address] [address] Jun, Bipolar 1 disorder F31.9 ; Borderline in tellectual functioning R41.83 and Extreme poverty Z59.5 [place] [address] [address] Jun, Bipolar 1 disorder F31.9 ; Borderline in tellectual functioning R41.83 and Extreme poverty Z59.5 [place] [address] [address] May, Urinary tract infection without hematuri a, site unspecified N39.0 [place] [address] [address] May, Bipolar 1 disorder F31.9 ; Borderline in tellectual functioning R41.83 and Extreme poverty Z59.5 [place] [address] [address] Apr, Diabetes E11.9 and Breast cancer screeni ng Z12.31 [place] [address] [address] Apr, Bipolar 1 disorder F31.9 and 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 [place] [address] [address] Mar, Bipolar 1 disorder F31.9 ; Borderline in tellectual functioning R41.83 and Extreme poverty Z59.5 [place] [address] [address] Mar, New daily persistent headache G44.52 ; L eg pain 729.5 and History of carpal tunnel release Z98.890 [place] [address] [address] Mar, Hyperlipidemia, unspecified E78.5 [place] [address] [address] Mar, Bipolar 1 disorder F31.9 ; Borderline in tellectual functioning R41.83 and Extreme poverty Z59.5 [place] [address] [address] Feb, Bipolar 1 disorder F31.9 ; Borderline in tellectual functioning R41.83 and Extreme poverty Z59.5 [place] [address] [address] Feb, Diabetes E11.[address] [address] Feb, Viral syndrome B34.9 [place] [address] [address] Jan, Other viral agents as the cause of disea ses classified elsewhere B97.89 and Acute upper respiratory infection, unspecified J06.9 [place] [address] [address] Jan, Bipolar 1 disorder F31.9 and 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 [place] [address] [address] Jan, Bipolar 1 disorder F31.9 ; Borderline in tellectual functioning R41.83 and Extreme poverty Z59.5 [place] [address] [address] Dec, Diabetes E11.9 [place] [address] [address] Dec, Diabetes E11.9 and Encounter for immuniz ation Z23 [address] [address] Dec, Bipolar 1 disorder F31.9 ; Borderline in tellectual functioning R41.83 and Extreme poverty Z59.5 [facility] [address] [place] [address] [id number] [place] [address] Dec, Back pain M54.9 [facility] [address] [place] [address] [id number] [place] [address] Nov, [facility] [address] [address] Nov, Bipolar 1 disorder F31.9 ; Borderline in tellectual functioning R41.83 and Extreme poverty Z59.5 [place] [address] [address] Nov, Bipolar 1 disorder F31.9 ; Borderline in tellectual functioning R41.83 and Extreme poverty Z59.5 [place] [address] [address] Oct, Borderline intellectual functioning R41. 83 and Bipolar 1 disorder F31.9 [place] [address] [address] Oct, Bipolar 1 disorder F31.9 ; Borderline in tellectual functioning R41.83 and Extreme poverty Z59.5 [place] [address] [address] Oct, Back pain M54.9 [facility] [address] [address] Oct, Borderline intellectual functioning R41. 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 and Bipolar 1 disorder F31.9 [place] [address] [address] Sep, Bipolar 1 disorder F31.9 ; Borderline in tellectual functioning R41.83 and Extreme poverty Z59.5 [place] [address] [address] Aug, Diabetes E11.9 ; Hyperlipidemia, unspeci fied E78.5 and Lumbar radiculopathy M54.16 [place] [address] [address] Aug, Bipolar 1 disorder F31.9 ; Borderline in tellectual functioning R41.83 and Extreme poverty Z59.5 [place] [address] [address] Aug, [place] [address] [address] Aug, [place] [address] [address] Aug, [place] [address] [address] July, [place] [address] [address] July, Acute bilateral low back pain with right -sided sciatica M54.41 [place] [address] [address] July, Bipolar 1 disorder F31.9 ; Borderline in tellectual functioning R41.83 and Extreme poverty Z59.5 [place] [address] [address] July, Back pain M54.9 and Diabetes E11.9 [place] [address] [address] Jun, Bipolar 1 disorder F31.9 ; Borderline in tellectual functioning R41.83 and Extreme poverty Z59.5 [place] [address] [address] Jun, Bipolar 1 disorder F31.9 ; Borderline in tellectual functioning R41.83 and Extreme poverty Z59.5 [place] [address] [address] May, Visit for pelvic exam Z01.419 ; Acute va ginitis N76.0 and Diabetes E11.9 [place] [address] [address] May, Bipolar 1 disorder F31.9 ; Borderline in tellectual functioning R41.83 and Extreme poverty Z59.5 [place] [address] [address] May, [place] [address] [address] May, [place] [address] [address] May, Bipolar 1 disorder F31.9 ; Borderline in tellectual functioning R41.83 and Extreme poverty Z59.5 [place] [address] [address] May, Hyperlipidemia, unspecified E78.5 [place] [address] [address] Apr, Breast cancer screening Z12.39 [place] [address] [address] Mar, [place] [address] [address] Mar, Bipolar disorder, current episode mixed, unspecified F31.60 [place] [address] [address] Mar, Bipolar 1 disorder F31.9 ; Borderline in tellectual functioning R41.83 and Extreme poverty Z59.5 [place] [address] [address] Feb, Acute nasopharyngitis J00 [place] [address] [address] 27 Feb, 2016 Dental examination Z01.20 [place] [address] [address] 21 Feb, 2016 Dental cavities K02.9 and Chronic period ontitis, unspecified K05.30 [place] [address] [address] 13 Feb, 2016 Low back pain M54.5 and Extreme poverty Z59.5 [place] [address] [address] 08 Feb, 2016 [place] [address] [address] 05 Feb, 2016 Routine gynecological examination V72.31 ; Breast cancer screening Z12.39 and Herpes simplex type 1 infection B00.9 [place] [address] [address] 02 Feb, 2016 Diabetes E11.9 [place] [address] [address] 01 Feb, 2016 Encounter for dental examination and leti aning without abnormal findings Z01.20 [place] [address] [address] 22 Jan, 2016 Hyperlipidemia, unspecified E78.5 [place] [address] [address] 22 Jan, 2016 Bipolar 1 disorder F31.9 ; Borderline in tellectual functioning R41.83 and Extreme poverty Z59.5 [place] [address] [address] 18 Jan, 2016 Diabetes E11.9 [place] [address] [address] 17 Jan, 2016 Diabetes E11.9 [place] [address] [address] 14 Dec, 2015 Bipolar 1 disorder F31.9 ; Borderline in tellectual functioning R41.83 and Extreme poverty Z59.5 [place] [address] [address] 13 Dec, 2015 Bipolar disorder, current episode mixed, unspecified F31.60 and 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 [place] [address] [address] 16 Nov, 2015 Bipolar 1 disorder F31.9 ; Borderline in tellectual functioning R41.83 ; Extreme poverty Z59.5 and Non compliance with medical treatment Z91.19 [place] [address] [address] Oct, [place] [address] [address] Oct, Dental caries K02.9 [place] [address] [address] Oct, Low back pain M54.5 and Other chronic pa in G89.29 [place] [address] [address] Oct, Bipolar 1 disorder F31.9 ; Borderline in tellectual functioning R41.83 ; Extreme poverty Z59.5 and Non compliance with medical treatment Z91.19 [place] [address] [address] Oct, [place] [address] [address] Oct, [place] [address] [address] Oct, Dental examination Z01.20 [place] [address] [address] Oct, Bipolar 1 disorder F31.9 ; Borderline in tellectual functioning R41.83 ; Extreme poverty Z59.5 and Non compliance with medical treatment Z91.19 [place] [address] [address] Oct, [place] [address] [address] Sep, Type 2 diabetes mellitus with complicati on E11.8 [place] [address] [address] Sep, Bipolar disorder, current episode mixed, unspecified F31.60 [place] [address] [place] [id number] [place] [address] Sep, Bipolar disorder, current episode mixed, unspecified F31.60 [place] [address] [address] Sep, Bipolar disorder, in partial remission, most recent episode manic F31.73 ; 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 ; Extreme poverty Z59.5 and Non compliance with medical treatment Z91.19 [place] [address] [address] Aug, Bipolar disorder, in partial remission, most recent episode manic F31.73 ; 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 ; Extreme poverty Z59.5 and Non compliance with medical treatment Z91.19 [place] [address] [address] Aug, Bipolar disorder, in partial remission, most recent episode manic F31.73 ; 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 ; Extreme poverty Z59.5 and Non compliance with medical treatment Z91.19 [place] [address] [address] Aug, [place] [address] [address] July, Bipolar disorder, in partial remission, most recent episode manic F31.73 ; 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 ; Extreme poverty Z59.5 and Non compliance with medical treatment Z91.19 [place] [address] [address] July, Bipolar disorder, current episode mixed, unspecified F31.60 [place] [address] [address] July, Bipolar disorder, in partial remission, most recent episode manic F31.73 ; 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 ; Extreme poverty Z59.5 and Non compliance with medical treatment Z91.19 [place] [address] [address] July, 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 and Chronic pain G89.29 [place] [address] [address] Jun, alf current use of opiate analgesi c Z79.891 and Bipolar 1 disorder F31.9 [place] [address] [address] Jun, [place] [address] [address] Jun, [place] [address] [address] Jun, [place] [address] [address] Jun, Bipolar disorder, in partial remission, most recent episode manic F31.73 ; 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 and Non compliance with medical treatment Z91.19 [place] [address] [address] May, Bipolar disorder, in partial remission, most recent episode manic F31.73 ; 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 and Non compliance with medical treatment Z91.19 [place] [address] [address] May, Bipolar disorder, in partial remission, most recent episode manic F31.73 [place] [address] [address] May, Diabetes E11.9 and Chronic pain G89.29 [place] [address] [address] May, [place] [address] [address] May, Bipolar disorder, in partial remission, most recent episode manic F31.73 ; Non compliance with medical treatment Z91.19 and 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 [place] [address] [address] May, Type 2 diabetes mellitus with complicati on E11.8 and Back pain M54.[address] [address] May, Bipolar disorder, in partial remission, most recent episode manic F31.73 and 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 [place] [address] [address] Apr, [address] [address] Apr, [place] [address] [address] Apr, [address] [address] Apr, Diabetes E11.9 ; Irritable bowel syndrom e with diarrhea K58.0 and Lumbar radiculopathy M54.[address] [address] Apr, Breast screening Z12.[address] [address] 02 Apr, 2015 Bipolar disorder, in partial remission, most recent episode manic F31.73 ; Non compliance with medical treatment Z91.19 and 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 [place] [address] [address] Mar, Edema, unspecified type R60.9 and Type 2 diabetes mellitus with complication E11.[address] [address] Mar, Bipolar disorder, in partial remission, most recent episode manic F31.73 ; Non compliance with medical treatment Z91.19 ; 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 and Extreme poverty Z59.5 [place] [address] [address] 14 Mar, 2015 Bipolar disorder, current episode mixed, unspecified F31.60 ; 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 ; Extreme poverty Z59.5 and Generalized anxiety disorder F41.1 [place] [address] [address] 12 Mar, 2015 Bipolar disorder, in partial remission, most recent episode manic F31.73 ; 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 and Extreme poverty Z59.5 [place] [address] [address] Feb, Bipolar disorder, in partial remission, most recent episode manic F31.73 ; 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 and Extreme poverty Z59.5 [place] [address] [address] Feb, Bipolar disorder, in partial remission, most recent episode manic F31.73 ; 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 and Extreme poverty Z59.5 [place] [address] [address] Feb, [place] [address] [address] Jan, Type 2 diabetes mellitus with complicati on E11.8 and Petechiae R23.3 [place] [address] [address] Jan, Type 2 diabetes mellitus with complicati on E11.8 ; Edema, unspecified R60.9 ; Petechiae R23.3 and Diabetes E11.9 [place] [address] [address] Jan, Bipolar disorder, in partial remission, most recent episode manic F31.73 ; 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 and Extreme poverty Z59.5 [place] [address] [address] Jan, Bipolar disorder, in partial remission, most recent episode manic F31.73 ; 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 and Extreme poverty Z59.5 [facility] [address] [address] Dec, Bipolar disorder, in partial remission, most recent episode manic F31.73 [facility] [address] [address] Dec, Edema, due to unspecified malnutrition t ype, unspecified edema R60.9 and Essential hypertension I10 [place] [address] [address] Dec, Bipolar disorder, in partial remission, most recent episode manic F31.73 [place] [address] [address] Nov, Bipolar I disorder, most recent episode (or current) mixed, unspecified 296.60 [place] [address] [address] Nov, Stress incontinence, female 625.6 ; Back pain 724.5 and Leg pain 729.5 [place] [address] [address] Nov, Generalized anxiety disorder 300.02 and Bipolar II disorder 296.89 [place] [address] [address] Nov, Bipolar I disorder, most recent episode (or current) mixed, unspecified 296.60 [facility] [address] [address] Oct, [facility] [address] [address] Oct, [facility] [address] [address] Oct, [facility] [address] [address] Oct, Bipolar I disorder, most recent episode (or current) mixed, unspecified 296.60 [facility] [address] [place] [id number] [place] [address] Sep, Diabetes 250.00 [facility] [address] [address] Sep, Bipolar I disorder, most recent episode (or current) mixed, unspecified 296.60 [facility] [address] [address] Sep, [facility] [address] [address] Sep, [facility] [address] [address] Sep, Bipolar I disorder, most recent episode (or current) mixed, unspecified 296.60 [facility] [address] [address] Sep, Bipolar I disorder, most recent episode (or current) mixed, unspecified 296.60 [facility] [address] [address] Sep, [facility] [address] [address] Sep, Anxiety 300.00 ; Diabetes 250.00 and Hyp erlipidemia 272.4 [facility] [address] [address] Aug, [facility] [address] [address] Aug, [facility] [address] [address] Aug, [facility] [address] [address] Aug, Bipolar I disorder, most recent episode (or current) mixed, unspecified 296.60 [facility] [address] [address] Aug, Generalized anxiety disorder 300.02 and Bipolar II disorder 296.89 [facility] [address] [place] [id number] [place] [address] July, Bipolar I disorder, most recent episode (or current) mixed, unspecified 296.60 [facility] [address] [place] [id number] [place] [address] July, Cough 786.2 [facility] [address] [place] [id number] [place] [address] July, Bipolar I disorder, most recent episode (or current) mixed, unspecified 296.60 [facility] [address] [place] [id number] [place] [address] Jun, Diabetes 250.00 [facility] [address] [place] [id number] [place] [address] Jun, [facility] [address] [place] [id number] [place] [address] Jun, [facility] [address] [place] [id number] [place] [address] May, [facility] [address] [place] [id number] [place] [address] May, [facility] [address] [place] [id number] [place] [address] May, [facility] [address] [id number] [place] [address] May, [facility] [address] [place] [id number] [place] [address] May, [facility] [address] [place] [id number] [place] [address] May, [facility] [address] [place] [id number] [place] [address] Apr, [facility] [address] [place] [id number] [place] [address] Apr, [facility] [address] [id number] [place] [address] Apr, [facility] [address] [place] [id number] [place] [address] 11 Apr, 2014 [facility] [place] [facility] [address] [id number] [place] [address] Apr, [facility] [place] [facility] [address] [id number] [place] [address] Apr, [facility] [place] [facility] [address] [id number] [place] [address] Apr, [facility] [place] [facility] [address] [id number] [place] [address] Apr, [facility] [place] [facility] [address] [id number] [place] [address] Mar, [facility] [place] [facility] [address] [id number] [place] [address] Mar, [facility] [place] [facility] [address] [id number] [place] [address] Mar, [facility] [place] [facility] [address] [id number] [place] [address] Mar, [facility] [place] [facility] [address] [id number] [place] [address] Mar, [facility] [place] [facility] [address] [id number] [place] [address] Mar, [facility] [place] [facility] [address] [id number] [place] [address] Mar, [facility] [place] [facility] [address] [id number] [place] [address] Mar, [facility] [place] [facility] [address] [id number] [place] [address] Feb, [facility] [place] [facility] [address] [id number] [place] [address] Feb, [facility] [place] [facility] [address] [id number] [place] [address] Feb, [facility] [place] [facility] [address] [id number] [place] [address] Feb, [facility] [place] [facility] [address] [id number] [place] [address] Feb, [facility] [place] [facility] [address] [id number] [place] [address] Feb, [facility] [place] [facility] [address] [id number] [place] [address] Feb, [facility] [place] [facility] [address] [id number] [place] [address] Feb, [facility] [place] [facility] [address] [facility] [id number] [place] [address] Feb, [facility] [place] [facility] [address] [id number] [place] [address] Feb, [facility] [place] [facility] [address] [id number] [place] [address] Jan, [facility] [place] [facility] [address] [id number] [place] [address] Jan, [facility] [place] [facility] [address] [id number] [place] [address] Jan, [facility] [place] [facility] [address] [id number] [place] [address] Jan, [facility] [place] [facility] [address] [id number] [place] [address] Jan, [facility] [place] [facility] [address] [id number] [place] [address] Jan, [facility] [place] [facility] [address] [id number] [place] [address] Jan, [facility] [place] [facility] [address] [id number] [place] [address] Jan, [facility] [place] [facility] [address] [id number] [place] [address] Jan, [facility] [place] [facility] [address] [id number] [place] [address] Jan, [facility] [place] [facility] [address] [id number] [place] [address] Jan, [facility] [place] [facility] [address] [id number] [place] [address] Jan, [facility] [place] [facility] [address] [id number] [place] [address] Jan, [facility] [place] [facility] [address] [id number] [place] [address] Jan, [facility] [place] [facility] [address] [id number] [place] [address] Jan, [facility] [place] [facility] [address] [id number] [place] [address] Dec, [facility] [place] [facility] [address] [id number] [place] [address] Dec, [facility] [place] [facility] [address] [id number] [place] [address] Dec, [facility] [place] [facility] [address] [id number] [place] [address] Dec, [facility] [place] [facility] [address] [id number] [place] [address] Dec, [facility] [place] [facility] [address] [id number] [place] [address] Dec, [facility] [place] [facility] [address] [id number] [place] [address] Dec, [facility] [place] [facility] [address] [id number] [place] [address] Dec, [facility] [place] [facility] [address] [id number] [place] [address] Nov, 2013 [facility] [place] [facility] [address] [id number] [place] [address] 25 Nov, 2013 [facility] [place] [facility] [address] [id number] [place] [address] Nov, 2013 [facility] [place] [facility] [address] [id number] [place] [address] 10 Nov, 2013 [facility] [place] [facility] [address] [id number] [place] [address] 08 Sep, 2013 [facility] [place] [facility] [address] [id number] [place] [address] 08 Sep, 2013 [facility] [place] [facility] [address] [id number] [place] [address] 08 Nov, 2013 [facility] [place] [facility] [address] [id number] [place] [address] 08 Sep, 2013 [facility] [place] [facility] [address] [id number] [place] [address] 08 Sep, 2013 [facility] [place] [facility] [address] [id number] [place] [address] 08 Nov, 2013 [facility] [place] [facility] [address] [id number] [place] [address] 04 Nov, 2013 [facility] [place] [facility] [address] [id number] [place] [address] 04 Nov, 2013 [facility] [place] [facility] [address] [id number] [place] [address] 03 Nov, 2013 [facility] [place] [facility] [address] [id number] [place] [address] Nov, 2013 [facility] [place] [facility] [address] [id number] [place] [address] Nov, 2013 [facility] [place] [facility] [address] [id number] [place] [address] Oct, [facility] [place] [facility] [address] [id number] [place] [address] Oct, [facility] [place] [facility] [address] [id number] [place] [address] Oct, [facility] [place] [facility] [address] [id number] [place] [address] Oct, [facility] [place] [facility] [address] [id number] [place] [address] Oct, [facility] [place] [facility] [address] [id number] [place] [address] Oct, [facility] [place] [facility] [address] [id number] [facility] [place] [address] Oct, [facility] [place] [facility] [address] [id number] [place] [address] Oct, [facility] [place] [facility] [address] [facility] [id number] [facility] [place] [address] Oct, [facility] [place] [facility] [address] [id number] [place] [address] Oct, [facility] [place] [facility] [address] [facility] [id number] [place] [address] Oct, [facility] [place] [facility] [address] [id number] [place] [address] Oct, [facility] [place] [facility] [address] [facility] [id number] [place] [address] Oct, [facility] [place] [facility] [address] [id number] [place] [address] Oct, [facility] [place] [facility] [address] [facility] [id number] [place] [address] Sep, [facility] [place] [facility] [address] [id number] [place] [address] Sep, [facility] [place] [facility] [address] [id number] [place] [address] Sep, [facility] [place] [facility] [address] [id number] [place] [address] Sep, [facility] [place] [facility] [address] [facility] [id number] [place] [address] Sep, [facility] [place] [facility] [address] [id number] [place] [address] Sep, [facility] [place] [facility] [address] [facility] [id number] [place] [address] Sep, [facility] [place] [facility] [address] [id number] [place] [address] Sep, [facility] [place] [facility] [address] [id number] [facility] [place] [address] Aug, [facility] [place] [facility] [address] [facility] [id number] [facility] [place] [address] Aug, [facility] [place] [facility] [address] [id number] [place] [address] Aug, [facility] [place] [facility] [address] [id number] [place] [address] Aug, [facility] [place] [facility] [address] [id number] [place] [address] Aug, [facility] [address] [id number] [place] [address] Aug, [facility] [address] [id number] [place] [address] Aug, [facility] [address] [id number] [place] [address] Aug, [facility] [address] [id number] [place] [address] July, [facility] [address] [id number] [place] [address] July, [facility] [address] [id number] [place] [address] July, [facility] [address] [id number] [place] [address] July, [facility] [address] [id number] [place] [address] July, [facility] [address] [id number] [place] [address] July, [facility] [address] [id number] [place] [address] July, [facility] [address] [id number] [place] [address] July, [facility] [address] [id number] [place] [address] Jun, [facility] [address] [facility] [id number] [place] [address] Jun, [facility] [address] [id number] [place] [address] Jun, [facility] [address] [id number] [place] [address] Jun, [facility] [address] [id number] [place] [address] Jun, [facility] [address] [id number] [place] [address] Jun, [facility] [address] [id number] [place] [address] Jun, [facility] [address] [id number] [place] [address] Jun, [facility] [address] [id number] [place] [address] Jun, [facility] [address] [id number] [place] [address] Jun, [facility] [address] [id number] [place] [address] Jun, [facility] [place] [facility] [address] [id number] [place] [address] Jun, [facility] [place] [facility] [address] [id number] [place] [address] May, [facility] [place] [facility] [address] [id number] [place] [address] May, [facility] [place] [facility] [address] [id number] [place] [address] May, [facility] [place] [facility] [address] [id number] [place] [address] May, [facility] [place] [facility] [address] [id number] [place] [address] May, [facility] [place] [facility] [address] [id number] [place] [address] May, [facility] [place] [facility] [address] [facility] [id number] [facility] [place] [address] May, [facility] [place] [facility] [address] [facility] [id number] [place] [address] May, [facility] [place] [facility] [address] [facility] [place] [id number] [facility] [place] [address] May, [facility] [place] [facility] [address] [facility] [place] [id number] [facility] [place] [address] May, [facility] [place] [facility] [address] [facility] [place] [id number] [facility] [place] [address] May, [facility] [place] [facility] [address] [facility] [id number] [facility] [place] [address] May, [facility] [place] [facility] [address] [facility] [place] [id number] [place] [address] May, [facility] [place] [facility] [address] [id number] [place] [address] May, [facility] [place] [facility] [address] [facility] [place] [id number] [facility] [place] [address] Apr, [facility] [place] [facility] [address] [id number] [facility] [place] [address] Apr, [facility] [place] [facility] [address] [id number] [place] [address] Apr, [facility] [place] [facility] [address] [id number] [place] [address] Apr, [facility] [place] [facility] [address] [facility] [id number] [facility] [place] [address] Apr, [facility] [place] [facility] [address] [facility] [place] [id number] [place] [address] Apr, [facility] [place] [facility] [address] [facility] [place] [id number] [place] [address] Mar, [facility] [place] [facility] [address] [id number] [place] [address] Mar, [facility] [place] [facility] [address] [id number] [place] [address] Mar, [facility] [place] [facility] [address] [facility] [id number] [place] [address] Mar, [facility] [place] [facility] [address] [id number] [place] [address] Mar, [facility] [place] [facility] [address] [id number] [place] [address] Mar, [facility] [place] [facility] [address] [id number] [place] [address] Mar, [facility] [place] [facility] [address] [id number] [place] [address] Mar, [facility] [place] [facility] [address] [id number] [place] [address] Mar, [facility] [place] [facility] [address] [id number] [place] [address] Mar, [facility] [place] [facility] [address] [id number] [place] [address] Mar, [facility] [place] [facility] [address] [id number] [place] [address] Mar, [facility] [place] [facility] [address] [id number] [place] [address] Mar, [facility] [place] [facility] [address] [id number] [place] [address] Mar, [facility] [place] [facility] [address] [id number] [place] [address] Feb, [facility] [place] [facility] [address] [id number] [place] [address] Feb, [facility] [place] [facility] [address] [id number] [place] [address] Feb, [facility] [place] [facility] [address] [id number] [place] [address] Feb, [facility] [place] [facility] [address] [id number] [place] [address] Feb, [facility] [place] [facility] [address] [id number] [place] [address] Feb, 2012 [facility] [place] [facility] [address] [id number] [place] [address] Feb, 2012 [facility] [place] [facility] [address] [id number] [place] [address] Feb, 2012 [facility] [place] [facility] [address] [id number] [place] [address] Feb, 2012 [facility] [place] [facility] [address] [id number] [place] [address] Feb, 2012 [facility] [place] [facility] [address] [id number] [place] [address] Feb, 2012 [facility] [place] [facility] [address] [id number] [place] [address] Feb, 2012 [facility] [place] [facility] [id number] [place] [address] Feb, 2012 [facility] [place] [facility] [address] [id number] [place] [address] Feb, 2012 [facility] [place] [facility] [address] [id number] [place] [address] Feb, 2012 [facility] [place] [facility] [address] [id number] [place] [address] Feb, 2012 [facility] [place] [facility] [address] [id number] [place] [address] 24 Dec, 2012 [facility] [place] [facility] [address] [id number] [place] [address] 24 Dec, 2012 [facility] [place] [facility] [address] [id number] [place] [address] Dec, [facility] [place] [facility] [address] [id number] [place] [address] Dec, 2012 [facility] [place] [facility] [address] [id number] [place] [address] Dec, 2012 [facility] [place] [facility] [address] [id number] [place] [address] 16 Dec, 2012 [facility] [place] [facility] [address] [facility] [place] [id number] [place] [address] 14 Dec, 2012 [facility] [place] [facility] [address] [facility] [place] [id number] [place] [address] 14 Dec, 2012 [facility] [place] [facility] [address] [id number] [place] [address] 10 Dec, 2012 [facility] [place] [facility] [address] [id number] [place] [address] 10 Dec, 2012 [facility] [place] [facility] [address] [facility] [place] [id number] [place] [address] 10 Dec, 2012 [facility] [place] [facility] [address] [id number] [place] [address] 10 Dec, 2012 [facility] [place] [facility] [address] [id number] [place] [address] 03 Dec, 2012 [facility] [place] [facility] [address] [id number] [place] [address] 25 Nov, 2012 [facility] [place] [facility] [address] [id number] [place] [address] 20 Nov, 2012 [facility] [place] [facility] [address] [id number] [place] [address] 18 Nov, 2012 [facility] [place] [facility] [address] [id number] [place] [address] 16 Nov, 2012 [facility] [place] [facility] [address] [id number] [place] [address] 12 Nov, 2012 [facility] [place] [facility] [address] [id number] [place] [address] 11 Nov, 2012 [facility] [place] [facility] [address] [id number] [place] [address] 05 Sep, 2012 [facility] [place] [facility] [address] [id number] [place] [address] 15 Oct, 2012 [facility] [place] [facility] [address] [id number] [place] [address] 03 Oct, 2012 [facility] [place] [facility] [address] [id number] [facility] [place] [address] 24 Sep, 2012 [facility] [place] [facility] [address] [id number] [place] [address] Sep, [facility] [place] [facility] [address] [facility] [place] [id number] [place] [address] Sep, [facility] [place] [facility] [address] [id number] [place] [address] 17 Sep, 2012 [facility] [place] [facility] [address] [facility] [place] [id number] [place] [address] 15 Sep, 2012 [facility] [place] [facility] [address] [facility] [id number] [facility] [place] [address] Sep, [facility] [place] [facility] [address] [id number] [place] [address] Sep, [facility] [place] [facility] [address] [id number] [place] [address] Aug, [facility] [place] [facility] [address] [id number] [place] [address] 18 Aug, 2012 [facility] [place] [facility] [address] [id number] [place] [address] 16 Aug, 2012 [facility] [place] [facility] [address] [id number] [place] [address] Aug, [facility] [place] [facility] [address] [id number] [place] [address] Aug, [facility] [place] [facility] [address] [id number] [place] [address] Aug, [facility] [place] [facility] [address] [facility] [place] [place] [id number] [place] [address] Aug, [facility] [place] [facility] [address] [id number] [place] [address] Aug, [facility] [place] [facility] [address] [id number] [place] [address] July, [facility] [place] [facility] [address] [id number] [place] [address] July, [facility] [place] [facility] [address] [id number] [place] [address] July, [facility] [place] [facility] [address] [facility] [id number] [place] [id number] July, [facility] [place] [facility] [address] [id number] [place] [address] July, [facility] [place] [facility] [address] [id number] [place] [address] Jun, [facility] [place] [facility] [address] [id number] [place] [address] May, [facility] [place] [facility] [address] [id number] [place] [address] May, [facility] [place] [facility] [address] [id number] [place] [address] May, [facility] [place] [facility] [address] [id number] [place] [address] Apr, [facility] [place] [facility] [address] [id number] [place] [address] Apr, [facility] [place] [facility] [address] [id number] [place] [address] Apr, [facility] [place] [facility] [address] [id number] [place] [address] Mar, [facility] [place] [facility] [address] [id number] [place] [address] Mar, [facility] [place] [facility] [address] [id number] [place] [address] Mar, [facility] [place] [facility] [address] [id number] [place] [address] Mar, [facility] [place] [facility] [address] [id number] [place] [address] Mar, [facility] [place] [facility] [address] [id number] [place] [address] Mar, [facility] [place] [facility] [address] [id number] [place] [address] Mar, [facility] [place] [facility] [address] [id number] [place] [address] Feb, [facility] [place] [facility] [address] [id number] [place] [address] Feb, [facility] [place] [facility] [address] [id number] [place] [address] Feb, [facility] [place] [facility] [address] [id number] [place] [address] Feb, [facility] [place] [facility] [address] [id number] [place] [address] Feb, [facility] [place] [facility] [address] [id number] [place] [address] Feb, [facility] [place] [facility] [address] [id number] [place] [address] Feb, [facility] [place] [facility] [address] [id number] [place] [address] Feb, [facility] [place] [facility] [address] [id number] [place] [address] Jan, [facility] [place] [facility] [address] [id number] [place] [address] Jan, [facility] [place] [facility] [address] [id number] [place] [address] Jan, [facility] [place] [facility] [address] [id number] [place] [address] Jan, [facility] [place] [facility] [address] [id number] [place] [address] Jan, [facility] [place] [facility] [address] [id number] [place] [address] Jan, [facility] [place] [facility] [address] [id number] [place] [address] Jan, [facility] [place] [facility] [address] [id number] [place] [address] Jan, [facility] [place] [facility] [address] [id number] [place] [address] Jan, [facility] [place] [facility] [address] [id number] [place] [address] Jan, [facility] [place] [facility] [address] [id number] [place] [address] Jan, [facility] [place] [facility] [address] [id number] [place] [address] Jan, [facility] [place] [facility] [address] [id number] [place] [address] Jan, [facility] [place] [facility] [address] [id number] [place] [address] Jan, [facility] [place] [facility] [address] [id number] [place] [address] Jan, [facility] [place] [facility] [address] [id number] [place] [address] Jan, [facility] [place] [facility] [address] [id number] [place] [address] Dec, [facility] [place] [facility] [address] [id number] [place] [address] Dec, [facility] [place] [facility] [address] [id number] [place] [address] Dec, [facility] [place] [facility] [address] [id number] [place] [address] Dec, [facility] [place] [facility] [address] [id number] [place] [address] Dec, [facility] [place] [facility] [address] [id number] [place] [address] Dec, [facility] [place] [facility] [address] [id number] [place] [address] Dec, [facility] [place] [facility] [address] [id number] [place] [address] Dec, [facility] [place] [facility] [address] [id number] [place] [address] 08 Dec, 2011 [facility] [place] [facility] [address] [id number] [place] [address] 05 Dec, 2011 [facility] [place] [facility] [address] [id number] [place] [address] 18 Nov, 2011 [facility] [place] [facility] [address] [id number] [place] [address] 13 Nov, 2011 [facility] [place] [facility] [address] [id number] [place] [address] 24 Oct, 2011 [facility] [place] [facility] [address] [id number] [place] [address] Oct, [facility] [place] [facility] [address] [id number] [place] [address] Oct, [facility] [place] [facility] [address] [id number] [place] [address] Oct, [facility] [place] [facility] [address] [id number] [place] [address] Oct, [facility] [place] [facility] [address] [id number] [place] [address] Oct, [facility] [place] [facility] [address] [id number] [place] [address] Oct, [facility] [place] [facility] [address] [id number] [place] [address] Sep, [facility] [place] [facility] [address] [id number] [place] [address] Aug, [facility] [place] [facility] [address] [id number] [place] [address] Aug, [facility] [place] [facility] [address] [id number] [place] [address] Aug, [facility] [place] [facility] [address] [id number] [place] [address] Aug, [facility] [place] [facility] [address] [id number] [place] [address] Aug, [facility] [place] [facility] [address] [id number] [place] [address] July, [facility] [place] [facility] [address] [id number] [facility] [place] [address] July, [facility] [place] [facility] [address] [id number] [facility] [place] [address] July, [facility] [place] [facility] [address] [id number] [facility] [place] [address] Jun, [facility] [place] [facility] [address] [id number] [facility] [place] [address] Jun, [facility] [place] [facility] [address] [id number] [facility] [place] [address] Jun, [facility] [place] [facility] [address] [id number] [place] [address] Jun, [facility] [place] [facility] [address] [id number] [facility] [place] [address] May, [facility] [place] [facility] [address] [id number] [place] [address] 30 May, 2011 [facility] [place] [facility] [address] [id number] [place] [address] 29 May, 2011 [facility] [place] [facility] [address] [id number] [place] [address] 28 May, 2011 [facility] [place] [facility] [address] [id number] [place] [address] May, [facility] [place] [facility] [address] [id number] [place] [address] May, [facility] [place] [facility] [address] [id number] [place] [address] May, [facility] [place] [facility] [address] [id number] [place] [address] May, [facility] [place] [facility] [address] [id number] [place] [address] 08 May, 2011 [facility] [place] [facility] [address] [id number] [place] [address] 05 May, 2011 [facility] [place] [facility] [address] [id number] [place] [address] May, [facility] [place] [facility] [address] [id number] [place] [address] May, [facility] [place] [facility] [address] [id number] [place] [address] Mar, [facility] [place] [facility] [address] [id number] [place] [address] Mar, [facility] [place] [facility] [address] [id number] [place] [address] Feb, [facility] [place] [facility] [address] [id number] [place] [address] Feb, [facility] [place] [facility] [address] [id number] [place] [address] Feb, [facility] [place] [facility] [address] [id number] [place] [address] 15 Feb, 2011 [facility] [address] [id number] [place] [address] Feb, [facility] [address] [id number] [place] [address] Feb, [facility] [address] [id number] [place] [address] Feb, [facility] [address] [id number] [place] [address] Jan, [facility] [address] [id number] [place] [address] Jan, [facility] [address] [id number] [place] [address] Jan, [facility] [address] [id number] [place] [address] 17 Jan, 2011 [facility] [address] [id number] [place] [address] Jan, [facility] [address] [id number] [place] [address] Jan, [facility] [address] [id number] [place] [address] Dec, [facility] [address] [id number] [place] [address] Dec, [facility] [address] [id number] [place] [address] Dec, [facility] [address] [id number] [place] [address] July, [facility] [address] [id number] [place] [address] July, [facility] [address] [id number] [place] [address] Feb, [facility] [address] [id number] [place] [address] Jan, [facility] [address] [id number] [place] [address] Dec, [facility] [address] [id number] [place] [address] Dec, [facility] [address] [id number] [place] [address] Sep, [facility] [address] [id number] [place] [address] Aug, [facility] [address] [id number] [place] [address] Jun, [facility] [address] [id number] [place] [address] Jun, [facility] [address] [id number] [place] [address] Jan, [facility] [address] [id number] [place] [address] Jan, [facility] [address] [id number] [place] [address] 05 Jan, 2009 [facility] [address] [id number] [place] [address] Jan, [facility] [address] [id number] [place] [address] Dec, [facility] [address] [id number] [place] [address] Dec, [facility] [address] [id number] [place] [address] Dec, [facility] [address] [id number] [place] [address] Nov, [facility] [address] [id number] [place] [address] July, [facility] [address] [id number] [place] [address] May, [facility] [address] [id number] [place] [address] Apr, [facility] [address] [id number] [place] [address] Feb, [facility] [address] [id number] [place] [address] Dec, IMMUNIZATIONS No Known Immunizations SOCIAL HISTORY [...]
--- OUTSIDE RECORDS SUMMARY | 2019-06-22 19:35 | XMS REPORT ---
Author Author Elizabeth Duran Doctor Organization 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29 Active 8 6694199 Problem Essential hypertension I10 Active 21434159 Problem Acute bilateral low back pain with right-sided sciatica M54.41 Active 703998519 Problem Bipolar disorder, in partial remission, most rec ent episode manic F31.73 Active 37491472 Problem Seasonal allergic rhinitis due to pollen J30.1 Active 19857890 Problem Hyperlipidemia, unspecified E78.5 Ac tive 96267879 Problem Eye exam normal Z01.00 Active 2438 39693 Problem Extreme poverty Z59.5 Active 1140 3006 Problem Lumbago with sciatica, left side M54.42 Active 397516260 Problem Hypertriglyceridemia E78.1 Active 290317667 Problem Insulin long-term use Z79.4 Active 448362816 Problem Rhinosinusitis J32.9 Active 92612 000 ALLERGIES No Information ENCOUNTERS Encounter Location Date Diagnosis [facility] [address] [id number] [place] [address] 08 Aug, 2019 [place] [address] [address] 16 Jun, 2019 [place] [address] [address] 07 Jun, 2019 [place] [address] [address] 26 May, 2019 [place] [address] [address] May, [place] [address] [address] May, Borderline intellectual functioning R41. 83 and Bipolar disorder, in partial remission, most recent episode manic F31.73 [place] [address] [address] 17 May, 2019 [facility] [address] [place] [id number] [address] 15 May, 2019 Diarrhea, unspecified type R 19.7 [place] [address] [address] 09 May, 2019 Borderline intellectual functioning R41. 83 [place] [address] [address] 09 May, 2019 Type 2 diabetes mellitus with complicati on E11.8 [place] [address] [address] 09 May, 2019 Bipolar 1 disorder F31.9 ; Type 2 diabet es mellitus with complication E11.8 ; Pain of right thumb M79.644 ; Extreme poverty Z59.5 and Low back pain M54.5 [place] [address] [address] 09 May, 2019 [place] [address] [address] 28 Apr, 2019 Bipolar 1 disorder F31.9 ; Borderline in tellectual functioning R41.83 and Extreme poverty Z59.5 [facility] [address] [place] [id number] [place] [address] Apr, Seasonal allergic rhinitis d ue to pollen J30.1 [facility] [address] [address] Apr, Essential hypertension I10 and Diabetes E11.9 [facility] [address] [address] Apr, [facility] [address] [address] Mar, Bipolar 1 disorder F31.9 ; Borderline in tellectual functioning R41.83 and Extreme poverty Z59.5 [place] [address] [address] Mar, Exercise counseling Z71.82 [place] [address] [address] Mar, [facility] [address] [address] Mar, Bipolar disorder, in partial remission, most recent episode manic F31.73 and 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 [place] [address] [address] Mar, [facility] [address] [address] Mar, Exercise counseling Z71.82 [place] [address] [address] Feb, Bipolar 1 disorder F31.9 ; Borderline in tellectual functioning R41.83 and Extreme poverty Z59.5 [place] [address] [address] Feb, [place] [address] [address] Feb, Type 2 diabetes mellitus with complicati on E11.8 [facility] WALK IN [facility] [address] [facility] [id number] [place] [address] Feb, Acute low back pain without sciatica, unspecified back pain laterality M54.5 [facility] [address] [address] Feb, Bipolar 1 disorder F31.9 ; Borderline in tellectual functioning R41.83 and Extreme poverty Z59.5 [facility] [address] [address] Jan, Bipolar 1 disorder F31.9 ; Borderline in tellectual functioning R41.83 and Extreme poverty Z59.5 [facility] [address] [address] Jan, [place] [address] [address] Jan, Type 2 diabetes mellitus with complicati on E11.8 [facility] [address] [address] Jan, Type 2 diabetes mellitus with complicati on E11.8 ; Dysuria R30.0 and Diarrhea, unspecified type R19.7 [facility] [address] [address] Jan, Bipolar 1 disorder F31.9 ; Borderline in tellectual functioning R41.83 and Extreme poverty Z59.5 [facility] [address] [address] Dec, [facility] [address] [address] Dec, [facility] [address] [address] Dec, [facility] [address] [address] Dec, [facility] [address] [address] Dec, Rhinosinusitis J32.9 [facility] [address] [address] Dec, [place] [address] [place] [id number] [place] [address] Dec, Bipolar 1 disorder F31.9 ; Borderline in tellectual functioning R41.83 and Extreme poverty Z59.5 [place] [address] [place] [address] [place] [address] Dec, Type 2 diabetes mellitus with complicati on E11.8 and Type 2 diabetes mellitus with hyperglycemia E11.65 [place] [address] [address] Dec, [place] [address] [address] Dec, Type 2 diabetes mellitus with complicati on E11.8 ; Insulin long-term use Z79.4 ; Hyperglycemia R73.9 and Yeast infection B37.9 [place] [address] [address] Dec, Encounter for immunization Z23 [place] [address] [address] Nov, [place] [address] [address] Nov, Bipolar 1 disorder F31.9 ; Borderline in tellectual functioning R41.83 and Extreme poverty Z59.5 [place] [address] [place] [id number] [place] [address] Nov, [place] [address] [address] Nov, [place] [address] [address] Nov, Borderline intellectual functioning R41. 83 and Bipolar disorder, in partial remission, most recent episode manic F31.73 [facility] [address] [facility] [id number] [place] [address] Nov, Epigastric abdominal pain R1 0.13 [place] [address] [address] Nov, Bipolar 1 disorder F31.9 ; Borderline in tellectual functioning R41.83 and Extreme poverty Z59.5 [facility] [address] [place] [address] Oct, Dysuria R30.0 and Acute cyst itis without hematuria N30.00 [facility] [address] [place] [id number] [place] [address] Oct, [facility] [address] [address] Oct, [facility] [address] [address] Oct, Bipolar 1 disorder F31.9 ; Borderline in tellectual functioning R41.83 and Extreme poverty Z59.5 [facility] [address] [place] [id number] [place] [address] Oct, [facility] [address] [address] Oct, [facility] [address] [address] Oct, Bipolar disorder, in partial remission, most recent episode manic F31.73 and 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 [address] [facility] [place] [id number] Sep, Dental examination Z01.20 and Dental car ies K02.9 [facility] WALK IN [facility] [address] [place] [id number] [place] [address] Sep, Mouth pain K13.79 [facility] [address] [place] [id number] [place] [address] Sep, [facility] [address] [address] Sep, Bipolar 1 disorder F31.9 ; Borderline in tellectual functioning R41.83 and Extreme poverty Z59.5 [facility] [address] [address] Sep, [facility] [address] [address] Sep, [place] [address] [address] Sep, Diabetes E11.9 ; Hyperglycemia R73.9 ; L eliseo term current use of insulin Z79.4 and Diarrhea, unspecified type R19.7 [place] [address] [address] Sep, [place] [address] [address] Sep, Bipolar 1 disorder F31.9 ; Borderline in tellectual functioning R41.83 and Extreme poverty Z59.5 [place] [address] [address] Sep, [facility] [address] [address] Sep, [place] [address] [address] Aug, Bipolar 1 disorder F31.9 ; Borderline in tellectual functioning R41.83 and Extreme poverty Z59.5 [place] [address] [address] Aug, Exercise counseling Z71.82 [place] [address] [address] Aug, Bipolar 1 disorder F31.9 ; Borderline in tellectual functioning R41.83 and Extreme poverty Z59.5 [place] [address] [place] [address] Aug, Borderline intellectual functioning R41. 83 and Bipolar disorder, in partial remission, most recent episode manic F31.73 [facility] [address] [address] Aug, Low back pain M54.5 [facility] [address] [address] Aug, Borderline intellectual functioning R41. 83 and Bipolar disorder, in partial remission, most recent episode manic F31.73 [facility] [address] [address] July, Acute superficial gastritis without hemo rrhage K29.00 ; Low back pain M54.5 and Other chronic pain G89.29 [facility] [address] [address] July, [facility] [address] [address] July, [facility] [address] [address] Jun, [facility] [address] [facility] [id number] [address] [place] [address] Jun, Bilateral lower extremity ed epi R60.0 [facility] [address] [address] Jun, Borderline intellectual functioning R41. 83 and Bipolar disorder, in partial remission, most recent episode manic F31.73 [facility] [address] [address] Jun, [facility] [address] [address] May, Bronchitis J40 [facility] [address] [address] 14 May, 2018 Screening for breast cancer Z12.31 and E ncounter for immunization Z23 [place] [address] [address] May, Bipolar 1 disorder F31.9 ; Borderline in tellectual functioning R41.83 and Extreme poverty Z59.5 [place] [address] [address] 11 Apr, 2018 [facility] [address] [address] 07 Apr, 2018 Bipolar 1 disorder F31.9 ; Borderline in tellectual functioning R41.83 and Extreme poverty Z59.5 [place] [address] [address] 05 Apr, 2018 Irritable bowel syndrome with diarrhea K 58.0 and Dental abscess K04.7 [place] [address] [address] Mar, [place] [address] [address] Mar, [place] [address] [address] Mar, Bipolar 1 disorder F31.9 ; Borderline in tellectual functioning R41.83 and Extreme poverty Z59.5 [place] [address] [address] Mar, Hypertriglyceridemia E78.1 [place] [address] [address] Mar, Borderline intellectual functioning R41. 83 and Bipolar disorder, in partial remission, most recent episode manic F31.73 [place] [address] [address] Mar, Bipolar 1 disorder F31.9 ; Borderline in tellectual functioning R41.83 and Extreme poverty Z59.5 [place] [address] [address] Feb, Generalized abdominal pain R10.84 and Di arrhea, unspecified type R19.7 [place] [address] [address] Feb, [place] [address] [address] Feb, Myalgia M79.10 and Nausea R11.0 [place] [address] [address] Feb, Bipolar 1 disorder F31.9 ; Borderline in tellectual functioning R41.83 and Extreme poverty Z59.5 [place] [address] [address] Feb, [place] [address] [address] Feb, Diabetes E11.9 ; Hyperglycemia R73.9 and Diarrhea, unspecified R19.7 [place] [address] [address] Feb, Diarrhea, unspecified type R19.7 ; Abdom inal pain R10.9 and Encounter for immunization Z23 [place] [address] [address] Jan, Bipolar 1 disorder F31.9 ; Borderline in tellectual functioning R41.83 and Extreme poverty Z59.5 [place] [address] [address] Dec, Bipolar 1 disorder F31.9 ; Borderline in tellectual functioning R41.83 and Extreme poverty Z59.5 [place] [address] [address] Nov, [place] [address] [address] Nov, Hypertriglyceridemia E78.1 [place] [address] [address] Nov, Bipolar 1 disorder F31.9 ; Borderline in tellectual functioning R41.83 and Extreme poverty Z59.5 [place] [address] [address] Nov, Type 2 diabetes mellitus with complicati on E11.8 [place] [address] [address] 18 Nov, 2017 Borderline intellectual functioning R41. 83 and Bipolar disorder, in partial remission, most recent episode manic F31.73 [place] [address] [address] 12 Nov, 2017 Type 2 diabetes mellitus with complicati on E11.8 [place] [address] [address] 11 Nov, 2017 Bipolar 1 disorder F31.9 ; Borderline in tellectual functioning R41.83 and Extreme poverty Z59.5 [place] [address] [address] Nov, Type 2 diabetes mellitus with complicati on E11.8 ; Pain of left upper arm M79.622 ; Pain in right upper arm M79.621 ; Hyperglycemia R73.9 ; Lumbago with sciatica, left side M54.42 and Other chronic pain G89.29 [place] [address] [address] Oct, Bipolar 1 disorder F31.9 ; Borderline in tellectual functioning R41.83 and Extreme poverty Z59.5 [place] [address] [address] Oct, Type 2 diabetes mellitus with hyperglyce didi E11.65 ; intermediate frame tender current use of insulin Z79.4 and Other acute gastritis without hemorrhage K29.00 [place] [address] [address] Oct, Bipolar 1 disorder F31.9 ; Borderline in tellectual functioning R41.83 and Extreme poverty Z59.5 [place] [address] [address] Sep, Diarrhea, unspecified R19.7 and Vomiting , unspecified R11.10 [place] [address] [address] Aug, Type 2 diabetes mellitus with complicati on E11.8 [place] [address] [address] Aug, [facility] [address] [address] Aug, Bipolar 1 disorder F31.9 ; Borderline in tellectual functioning R41.83 and Extreme poverty Z59.5 [place] [address] [address] Aug, Borderline intellectual functioning R41. 83 and Bipolar disorder, in partial remission, most recent episode manic F31.73 [place] [address] [address] Aug, Bipolar 1 disorder F31.9 [place] [address] [address] Aug, [place] [address] [address] Aug, [place] [address] [address] Aug, Bipolar 1 disorder F31.9 ; Borderline in tellectual functioning R41.83 and Extreme poverty Z59.5 [place] [address] [address] July, Type 2 diabetes mellitus with complicati on E11.8 [place] [address] [address] July, Bipolar 1 disorder F31.9 ; Borderline in tellectual functioning R41.83 and Extreme poverty Z59.5 [place] [address] [address] Jun, Bipolar 1 disorder F31.9 ; Borderline in tellectual functioning R41.83 and Extreme poverty Z59.5 [place] [address] [address] Jun, Bipolar 1 disorder F31.9 ; Borderline in tellectual functioning R41.83 and Extreme poverty Z59.5 [place] [address] [address] Jun, Bipolar 1 disorder F31.9 ; Borderline in tellectual functioning R41.83 and Extreme poverty Z59.5 [place] [address] [address] May, Urinary tract infection without hematuri a, site unspecified N39.0 [place] [address] [address] May, Bipolar 1 disorder F31.9 ; Borderline in tellectual functioning R41.83 and Extreme poverty Z59.5 [place] [address] [address] 28 Apr, 2017 Diabetes E11.9 and Breast cancer screeni ng Z12.31 [place] [address] [address] Apr, Bipolar 1 disorder F31.9 and 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 [place] [address] [address] Mar, Bipolar 1 disorder F31.9 ; Borderline in tellectual functioning R41.83 and Extreme poverty Z59.5 [place] [address] [address] Mar, New daily persistent headache G44.52 ; L eg pain 729.5 and History of carpal tunnel release Z98.890 [place] [address] [address] Mar, Hyperlipidemia, unspecified E78.5 [place] [address] [address] Mar, Bipolar 1 disorder F31.9 ; Borderline in tellectual functioning R41.83 and Extreme poverty Z59.5 [place] [address] [address] Feb, Bipolar 1 disorder F31.9 ; Borderline in tellectual functioning R41.83 and Extreme poverty Z59.5 [place] [address] [address] Feb, Diabetes E11.9 [place] [address] [address] Feb, Viral syndrome B34.9 [place] [address] [address] Jan, Other viral agents as the cause of disea ses classified elsewhere B97.89 and Acute upper respiratory infection, unspecified J06.9 [place] [address] [address] Jan, Bipolar 1 disorder F31.9 and Borderline intellectual functioning R41.[address] [address] Jan, Bipolar 1 disorder F31.9 ; Borderline in tellectual functioning R41.83 and Extreme poverty Z59.5 [place] [address] [address] Dec, Diabetes E11.9 [place] [address] [address] Dec, Diabetes E11.9 and Encounter for immuniz ation Z23 [place] [address] [address] Dec, Bipolar 1 disorder F31.9 ; Borderline in tellectual functioning R41.83 and Extreme poverty Z59.5 [place] [address] [address] Dec, Back pain M54.9 [place] [address] [address] Nov, [place] [address] [address] Nov, Bipolar 1 disorder F31.9 ; Borderline in tellectual functioning R41.83 and Extreme poverty Z59.5 [place] [address] [address] Nov, Bipolar 1 disorder F31.9 ; Borderline in tellectual functioning R41.83 and Extreme poverty Z59.5 [place] [address] [address] Oct, Borderline intellectual functioning R41. 83 and Bipolar 1 disorder F31.9 [place] [address] [address] Oct, Bipolar 1 disorder F31.9 ; Borderline in tellectual functioning R41.83 and Extreme poverty Z59.5 [place] [address] [address] Oct, Back pain M54.9 [place] [address] [address] Oct, Borderline intellectual functioning R41. 83 and Type 2 diabetes mellitus with complication E11.8 [place] [address] [address] Sep, Bipolar 1 disorder F31.9 ; Borderline in tellectual functioning R41.83 and Extreme poverty Z59.5 [place] [address] [address] Sep, Borderline intellectual functioning R41. 83 and Bipolar 1 disorder F31.9 [place] [address] [address] Sep, Bipolar 1 disorder F31.9 ; Borderline in tellectual functioning R41.83 and Extreme poverty Z59.5 [place] [address] [address] Aug, Diabetes E11.9 ; Hyperlipidemia, unspeci fied E78.5 and Lumbar radiculopathy M54.16 [place] [address] [address] Aug, Bipolar 1 disorder F31.9 ; Borderline in tellectual functioning R41.83 and Extreme poverty Z59.5 [facility] [id number] [place] [address] Aug, [facility] [address] [id number] [place] [address] Aug, [facility] [address] [address] Aug, [place] [address] [address] July, [place] [address] [address] July, Acute bilateral low back pain with right -sided sciatica M54.41 [place] [address] [address] July, Bipolar 1 disorder F31.9 ; Borderline in tellectual functioning R41.83 and Extreme poverty Z59.5 [place] [address] [address] July, Back pain M54.9 and Diabetes E11.9 [place] [address] [address] Jun, Bipolar 1 disorder F31.9 ; Borderline in tellectual functioning R41.83 and Extreme poverty Z59.5 [place] [address] [address] Jun, Bipolar 1 disorder F31.9 ; Borderline in tellectual functioning R41.83 and Extreme poverty Z59.5 [place] [id number] [place] [address] May, Visit for pelvic exam Z01.419 ; Acute va ginitis N76.0 and Diabetes E11.9 [place] [address] [place] [id number] [place] [address] May, Bipolar 1 disorder F31.9 ; Borderline in tellectual functioning R41.83 and Extreme poverty Z59.5 [place] [address] [address] 08 May, 2016 [place] [address] [address] May, [place] [address] [address] May, Bipolar 1 disorder F31.9 ; Borderline in tellectual functioning R41.83 and Extreme poverty Z59.5 [place] [address] [address] May, Hyperlipidemia, unspecified E78.5 [place] [address] [address] 13 Apr, 2016 Breast cancer screening Z12.39 [place] [address] [address] Mar, [place] [address] [address] Mar, Bipolar disorder, current episode mixed, unspecified F31.60 [place] [address] [address] Mar, Bipolar 1 disorder F31.9 ; Borderline in tellectual functioning R41.83 and Extreme poverty Z59.5 [place] [address] [address] Feb, Acute nasopharyngitis J00 [place] [address] [address] Feb, Dental examination Z01.20 [place] [address] [address] [address] [address] Feb, Dental cavities K02.9 and Chronic period ontitis, unspecified K05.30 [place] [address] [address] 13 Feb, 2016 Low back pain M54.5 and Extreme poverty Z59.5 [place] [address] [address] 08 Feb, 2016 [place] [address] [address] [place] [address] 05 Feb, 2016 Routine gynecological examination V72.31 ; Breast cancer screening Z12.39 and Herpes simplex type 1 infection B00.9 [place] [id number] 02 Feb, 2016 Diabetes E11.9 [place] [address]32[address] Feb, Encounter for dental examination and leti aning without abnormal findings Z01.20 [place] [address] Jan, Hyperlipidemia, unspecified E78.[address] [address] Jan, Bipolar 1 disorder F31.9 ; Borderline in tellectual functioning R41.83 and Extreme poverty Z59.[address] [address] 18 Jan, 2016 Diabetes E11.[address] [address] 17 Jan, 2016 Diabetes E11.[address] [address] 14 Dec, 2015 Bipolar 1 disorder F31.9 ; Borderline in tellectual functioning R41.83 and Extreme poverty Z59.[address] [address] 13 Dec, 2015 Bipolar disorder, current episode mixed, unspecified F31.60 and Borderline intellectual functioning R41.[address] [address] 16 Nov, 2015 Bipolar 1 disorder F31.9 ; Borderline in tellectual functioning R41.83 ; Extreme poverty Z59.5 and Non compliance with medical treatment Z91.[address] [address] Oct, [place] [address] [address] Oct, Dental caries K02.9 [place] [address] [address] Oct, Low back pain M54.5 and Other chronic pa in G89.29 [place] [address] [address] Oct, Bipolar 1 disorder F31.9 ; Borderline in tellectual functioning R41.83 ; Extreme poverty Z59.5 and Non compliance with medical treatment Z91.19 [place] [address] [address] Oct, [place] [address] [address] Oct, [place] [address] [address] Oct, Dental examination Z01.20 [place] [address] [address] Oct, Bipolar 1 disorder F31.9 ; Borderline in tellectual functioning R41.83 ; Extreme poverty Z59.5 and Non compliance with medical treatment Z91.19 [place] [address] [address] Oct, [place] [address] [address] Sep, Type 2 diabetes mellitus with complicati on E11.8 [place] [address] [address] Sep, Bipolar disorder, current episode mixed, unspecified F31.60 [place] [address] [address] Sep, Bipolar disorder, current episode mixed, unspecified F31.60 [place] [address] [address] Sep, Bipolar disorder, in partial remission, most recent episode manic F31.73 ; 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 ; Extreme poverty Z59.5 and Non compliance with medical treatment Z91.19 [place] [address] [address] Aug, Bipolar disorder, in partial remission, most recent episode manic F31.73 ; 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 ; Extreme poverty Z59.5 and Non compliance with medical treatment Z91.19 [place] [address] [address] Aug, Bipolar disorder, in partial remission, most recent episode manic F31.73 ; 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 ; Extreme poverty Z59.5 and Non compliance with medical treatment Z91.19 [place] [address] [address] Aug, [place] [address] [address] July, Bipolar disorder, in partial remission, most recent episode manic F31.73 ; 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 ; Extreme poverty Z59.5 and Non compliance with medical treatment Z91.19 [place] [address] [address] July, Bipolar disorder, current episode mixed, unspecified F31.60 [place] [address] [address] July, Bipolar disorder, in partial remission, most recent episode manic F31.73 ; 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 ; Extreme poverty Z59.5 and Non compliance with medical treatment Z91.19 [place] [address] [address] July, [facility] current use of opiate analgesi c Z79.891 and Chronic pain G89.29 [place] [address] [address] Jun, intermediate frame tender current use of opiate analgesi c Z79.891 and Bipolar 1 disorder F31.9 [place] [address] [address] Jun, [place] [address] [address] Jun, [place] [address] [address] Jun, [place] [address] [address] Jun, Bipolar disorder, in partial remission, most recent episode manic F31.73 ; 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 and Non compliance with medical treatment Z91.19 [place] [address] [address] May, Bipolar disorder, in partial remission, most recent episode manic F31.73 ; 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 and Non compliance with medical treatment Z91.19 [place] [address] [address] May, Bipolar disorder, in partial remission, most recent episode manic F31.73 [place] [address] [address] May, Diabetes E11.9 and Chronic pain G89.29 [place] [address] [address] May, [place] [address] [address] May, Bipolar disorder, in partial remission, most recent episode manic F31.73 ; Non compliance with medical treatment Z91.19 and 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 [place] [address] [address] May, Type 2 diabetes mellitus with complicati on E11.8 and Back pain M54.9 [place] [address] [address] May, Bipolar disorder, in partial remission, most recent episode manic F31.73 and 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 [place] [address] [address] Apr, [place] [address] [address] Apr, [place] [address] [address] Apr, [place] [address] [address] 09 Apr, 2015 Diabetes E11.9 ; Irritable bowel syndrom e with diarrhea K58.0 and Lumbar radiculopathy M54.16 [place] [address] [address] 02 Apr, 2015 Breast screening Z12.39 [place] [address] [address] 02 Apr, 2015 Bipolar disorder, in partial remission, most recent episode manic F31.73 ; Non compliance with medical treatment Z91.19 and 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 [place] [address] [address] Mar, Edema, unspecified type R60.9 and Type 2 diabetes mellitus with complication E11.8 [place] [address] [address] Mar, Bipolar disorder, in partial remission, most recent episode manic F31.73 ; Non compliance with medical treatment Z91.19 ; 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 and Extreme poverty Z59.5 [place] [address] [address] Mar, Bipolar disorder, current episode mixed, unspecified F31.60 ; 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 ; Extreme poverty Z59.5 and Generalized anxiety disorder F41.1 [place] [address] [address] Mar, Bipolar disorder, in partial remission, most recent episode manic F31.73 ; 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 and Extreme poverty Z59.5 [place] [address] [address] 14 Feb, 2015 Bipolar disorder, in partial remission, most recent episode manic F31.73 ; 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 and Extreme poverty Z59.5 [place] [address] [address] Feb, Bipolar disorder, in partial remission, most recent episode manic F31.73 ; 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 and Extreme poverty Z59.5 [place] [address] [address] Feb, [place] [address] [address] Jan, Type 2 diabetes mellitus with complicati on E11.8 and Petechiae R23.3 [place] [address] [address] Jan, Type 2 diabetes mellitus with complicati on E11.8 ; Edema, unspecified R60.9 ; Petechiae R23.3 and Diabetes E11.9 [place] [address] [address] Jan, Bipolar disorder, in partial remission, most recent episode manic F31.73 ; 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 and Extreme poverty Z59.5 [place] [address] [address] Jan, Bipolar disorder, in partial remission, most recent episode manic F31.73 ; 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 and Extreme poverty Z59.5 [place] [address] [address] Dec, Bipolar disorder, in partial remission, most recent episode manic F31.73 [place] [address] [address] Dec, Edema, due to unspecified malnutrition t ype, unspecified edema R60.9 and Essential hypertension I10 [place] [address] [address] Dec, Bipolar disorder, in partial remission, most recent episode manic F31.73 [facility] [address] [address] Nov, Bipolar I disorder, most recent episode (or current) mixed, unspecified 296.60 [facility] [address] [address] Nov, Stress incontinence, female 625.6 ; Back pain 724.5 and Leg pain 729.5 [facility] [address] [address] Nov, Generalized anxiety disorder 300.02 and Bipolar II disorder 296.89 [facility] [address] [address] Nov, Bipolar I disorder, most recent episode (or current) mixed, unspecified 296.60 [place] [address] [address] Oct, [facility] [address] [address] Oct, [facility] [address] [address] Oct, [facility] [address] [address] Oct, Bipolar I disorder, most recent episode (or current) mixed, unspecified 296.60 [facility] [address] [address] Sep, Diabetes 250.00 [facility] [address] [address] Sep, Bipolar I disorder, most recent episode (or current) mixed, unspecified 296.60 [facility] [address] [address] Sep, [facility] [address] [address] Sep, [facility] [address] [place] [id number] [place] [address] Sep, Bipolar I disorder, most recent episode (or current) mixed, unspecified 296.60 [facility] [address] [place] [id number] [place] [address] Sep, Bipolar I disorder, most recent episode (or current) mixed, unspecified 296.60 [facility] [address] [address] Sep, [facility] [address] [address] Sep, Anxiety 300.00 ; Diabetes 250.00 and Hyp erlipidemia 272.4 [facility] [address] [place] [id number] [place] [address] Aug, [facility] [address] [address] Aug, [facility] [address] [address] Aug, [facility] [address] [address] Aug, Bipolar I disorder, most recent episode (or current) mixed, unspecified 296.60 [facility] [address] [place] [id number] [place] [address] Aug, Generalized anxiety disorder 300.02 and Bipolar II disorder 296.89 [facility] [address] [place] [id number] [place] [address] July, Bipolar I disorder, most recent episode (or current) mixed, unspecified 296.60 [facility] [address] [address] July, Cough 786.2 [facility] [address] [address] July, Bipolar I disorder, most recent episode (or current) mixed, unspecified 296.60 [facility] [address] [place] [address] [place] [address] 30 Jun, 2014 Diabetes 250.00 [facility] [address] [id number] [place] [address] 14 Jun, 2014 [facility] [address] [id number] [place] [address] 13 Jun, 2014 [facility] [address] [id number] [place] [address] 24 May, 2014 [facility] [address] [id number] [place] [address] 24 May, 2014 [facility] [address] [id number] [place] [address] 10 May, 2014 [facility] [address] [id number] [place] [address] 10 May, 2014 [facility] [address] [id number] [place] [address] 10 May, 2014 [facility] [address] [id number] [place] [address] May, [facility] [address] [id number] [place] [address] Apr, [facility] [address] [id number] [place] [address] Apr, [facility] [address] [id number] [place] [address] Apr, [facility] [address] [id number] [place] [address] Apr, [facility] [address] [id number] [place] [address] 10 Apr, 2014 [facility] [address] [id number] [place] [address] 10 Apr, 2014 [facility] [address] [id number] [place] [address] 05 Apr, 2014 [facility] [address] [id number] [place] [address] Apr, [facility] [address] [id number] [place] [address] Mar, [facility] [address] [id number] [place] [address] Mar, [facility] [address] [id number] [place] [address] Mar, [facility] [address] [id number] [place] [address] Mar, [facility] [address] [id number] [place] [address] Mar, [facility] [address] [id number] [place] [address] Mar, [facility] [address] [id number] [place] [address] Mar, [facility] [address] [id number] [place] [address] Mar, [facility] [address] [id number] [place] [address] Feb, [facility] [address] [id number] [place] [address] Feb, [facility] [address] [id number] [place] [address] Feb, [facility] [address] [id number] [place] [address] Feb, [facility] [address] [id number] [place] [address] Feb, [facility] [address] [id number] [place] [address] Feb, [facility] [address] [id number] [place] [address] Feb, [facility] [address] [id number] [place] [address] Feb, [facility] [address] [id number] [place] [address] Feb, [facility] [address] [id number] [place] [address] Feb, [facility] [address] [id number] [place] [address] Jan, [facility] [address] [id number] [place] [address] Jan, [facility] [address] [id number] [place] [address] Jan, [facility] [address] [id number] [place] [address] Jan, [facility] [address] [id number] [place] [address] Jan, [facility] [address] [id number] [place] [address] Jan, [facility] [address] [id number] [place] [address] Jan, [facility] [address] [id number] [place] [address] Jan, [facility] [address] [id number] [place] [address] Jan, [facility] [address] [id number] [place] [address] Jan, [facility] [address] [id number] [place] [address] Jan, [facility] [address] [id number] [place] [address] Jan, [facility] [address] [id number] [place] [address] Jan, [facility] [address] [id number] [place] [address] Jan, [facility] [address] [id number] [place] [address] Jan, [facility] [address] [id number] [place] [address] Dec, 2013 [facility] [address] [id number] [place] [address] Dec, 2013 [facility] [address] [id number] [place] [address] Dec, 2013 [facility] [address] [id number] [place] [address] Dec, 2013 [facility] [address] [id number] [place] [address] Dec, 2013 [facility] [address] [id number] [place] [address] Dec, 2013 [facility] [address] [id number] [place] [address] Dec, 2013 [facility] [address] [id number] [place] [address] 07 Dec, 2013 [facility] [address] [id number] [place] [address] 25 Nov, 2013 [facility] [address] [id number] [place] [address] 25 Sep, 2013 [facility] [address] [id number] [place] [address] 10 Sep, 2013 [facility] [address] [id number] [place] [address] 10 Sep, 2013 [facility] [address] [id number] [place] [address] 08 Sep, 2013 [facility] [address] [id number] [place] [address] 08 Sep, 2013 [facility] [address] [id number] [place] [address] 08 Sep, 2013 [facility] [address] [id number] [place] [address] 08 Sep, 2013 [facility] [address] [id number] [place] [address] 08 Sep, 2013 [facility] [address] [id number] [facility] [place] [address] 08 Nov, 2013 [facility] [address] [facility] [id number] [facility] [place] [address] 04 Nov, 2013 [facility] [address] [id number] [facility] [place] [address] 04 Nov, 2013 [facility] [address] [facility] [id number] [facility] [place] [address] Nov, 2013 [facility] [address] [facility] [id number] [facility] [place] [address] Nov, 2013 [facility] [address] [facility] [id number] [facility] [place] [address] Nov, 2013 [facility] [address] [id number] [facility] [place] [address] Oct, [facility] [address] [id number] [facility] [place] [address] Oct, [facility] [address] [id number] [place] [address] Oct, [facility] [address] [id number] [place] [address] Oct, [facility] [address] [id number] [place] [address] Oct, [facility] [address] [id number] [place] [address] Oct, [facility] [address] [id number] [place] [address] Oct, [facility] [address] [id number] [place] [address] Oct, [facility] [address] [id number] [place] [address] Oct, [facility] [address] [id number] [place] [address] Oct, [facility] [address] [id number] [facility] [place] [address] Oct, [facility] [address] [id number] [place] [address] Oct, [facility] [address] [facility] [id number] [place] [address] Oct, [facility] [address] [id number] [place] [address] Oct, [facility] [address] [facility] [id number] [place] [address] Sep, [facility] [address] [facility] [id number] [place] [address] Sep, [facility] [address] [id number] [place] [address] Sep, [facility] [address] [id number] [place] [address] Sep, [facility] [address] [id number] [place] [address] Sep, [facility] [address] [facility] [id number] [place] [address] Sep, [facility] [address] [id number] [place] [address] Sep, [facility] [address] [id number] [place] [address] Sep, [facility] [address] [id number] [place] [address] Aug, [facility] [address] [facility] [id number] [place] [address] Aug, [facility] [address] [id number] [place] [address] Aug, [facility] [address] [id number] [place] [address] Aug, [facility] [address] [id number] [place] [address] Aug, [facility] [address] [id number] [place] [address] Aug, [facility] [address] [id number] [place] [address] Aug, [facility] [address] [id number] [place] [address] Aug, [facility] [address] [id number] [place] [address] July, [facility] [address] [id number] [place] [address] July, [facility] [address] [id number] [place] [address] July, [facility] [address] [id number] [place] [address] July, [facility] [address] [id number] [place] [address] July, [facility] [address] [id number] [place] [address] July, [facility] [address] [id number] [place] [address] July, [facility] [address] [id number] [place] [address] July, [facility] [address] [id number] [place] [address] Jun, [facility] [address] [id number] [place] [address] Jun, [facility] [address] [id number] [place] [address] Jun, [facility] [address] [id number] [place] [address] Jun, [facility] [address] [id number] [place] [address] Jun, [facility] [place] [facility] [address] [id number] [place] [address] 17 Jun, 2013 [facility] [place] [facility] [address] [facility] [id number] [facility] [place] [address] Jun, [facility] [place] [facility] [address] [facility] [id number] [facility] [place] [address] Jun, [facility] [place] [facility] [address] [id number] [facility] [place] [address] Jun, [facility] [place] [facility] [address] [id number] [place] [address] Jun, [facility] [place] [facility] [address] [facility] [id number] [facility] [place] [address] Jun, [facility] [place] [facility] [address] [facility] [id number] [place] [address] Jun, [facility] [place] [facility] [address] [id number] [place] [address] May, [facility] [place] [facility] [address] [id number] [facility] [place] [address] May, [facility] [place] [facility] [address] [id number] [facility] [place] [address] May, [facility] [place] [facility] [address] [id number] [place] [address] May, [facility] [place] [facility] [address] [id number] [place] [address] May, [facility] [place] [facility] [address] [id number] [place] [address] May, [facility] [place] [facility] [address] [id number] [facility] [place] [address] May, [facility] [place] [facility] [address] [id number] [place] [address] May, [facility] [place] [facility] [address] [id number] [place] [address] May, [facility] [place] [facility] [address] [id number] [place] [address] May, [facility] [place] [facility] [address] [id number] [place] [address] May, [facility] [place] [facility] [address] [facility] [id number] [place] [address] May, [facility] [place] [facility] [address] [id number] [place] [address] May, [facility] [place] [facility] [address] [id number] [place] [address] May, [facility] [place] [facility] [address] [id number] [place] [address] Apr, [facility] [place] [facility] [address] [id number] [place] [address] Apr, [facility] [place] [facility] [address] [id number] [place] [address] Apr, [facility] [place] [facility] [address] [id number] [place] [address] Apr, [facility] [place] [facility] [address] [id number] [place] [address] Apr, [facility] [place] [facility] [address] [id number] [place] [address] Apr, [facility] [place] [facility] [address] [id number] [place] [address] Mar, [facility] [place] [facility] [address] [id number] [place] [address] Mar, [facility] [place] [facility] [address] [id number] [place] [address] Mar, [facility] [place] [facility] [address] [id number] [place] [address] Mar, [facility] [place] [facility] [address] [id number] [place] [address] Mar, [facility] [place] [facility] [address] [id number] [place] [address] Mar, [facility] [place] [facility] [address] [id number] [place] [address] Mar, [facility] [place] [facility] [address] [facility] [id number] [place] [address] Mar, [facility] [place] [facility] [address] [id number] [place] [address] Mar, [facility] [place] [facility] [address] [id number] [place] [address] Mar, [facility] [place] [facility] [address] [id number] [place] [address] Mar, [facility] [place] [facility] [address] [id number] [place] [address] Mar, [facility] [place] [facility] [address] [id number] [place] [address] Mar, [facility] [place] [facility] [address] [id number] [place] [address] Mar, [facility] [place] [facility] [address] [id number] [place] [address] Feb, [facility] [place] [facility] [address] [id number] [place] [address] Feb, [facility] [place] [facility] [address] [id number] [place] [address] Feb, [facility] [place] [facility] [address] [id number] [place] [address] Feb, [facility] [place] [facility] [address] [id number] [place] [address] Feb, [facility] [place] [facility] [address] [id number] [place] [address] Feb, [facility] [place] [facility] [address] [id number] [place] [address] Feb, [facility] [place] [facility] [address] [id number] [place] [address] Feb, [facility] [place] [facility] [address] [id number] [place] [address] Feb, [facility] [place] [facility] [address] [id number] [place] [address] 09 Feb, 2012 [facility] [place] [facility] [address] [id number] [place] [address] Feb, 2012 [facility] [place] [facility] [address] [id number] [place] [address] Feb, 2012 [facility] [place] [facility] [address] [id number] [place] [address] Feb, 2012 [facility] [place] [facility] [address] [id number] [place] [address] Feb, 2012 [facility] [place] [facility] [address] [id number] [place] [address] Feb, 2012 [facility] [place] [facility] [address] [id number] [place] [address] Feb, 2012 [facility] [place] [facility] [address] [id number] [place] [address] 24 Dec, 2012 [facility] [place] [facility] [address] [id number] [place] [address] 24 Dec, 2012 [facility] [place] [facility] [address] [id number] [place] [address] 16 Dec, 2012 [facility] [place] [facility] [address] [id number] [place] [address] 16 Dec, 2012 [facility] [place] [facility] [address] [id number] [place] [address] 16 Dec, 2012 [facility] [place] [facility] [address] [id number] [place] [address] 16 Dec, 2012 [facility] [place] [facility] [address] [id number] [place] [address] 14 Dec, 2012 [facility] [place] [facility] [id number] [place] [address] 14 Dec, 2012 [facility] [place] [facility] [address] [id number] [place] [address] 10 Dec, 2012 [facility] [place] [facility] [address] [id number] [place] [address] 10 Dec2012 [facility] [place] [facility] [address] [id number] [place] [address] Dec, [facility] [place] [facility] [address] [id number] [place] [address] 10 Dec, 2012 [facility] [place] [facility] [address] [id number] [place] [address] Dec, [facility] [place] [facility] [address] [id number] [place] [address] 25 Nov, 2012 [facility] [place] [facility] [address] [facility] [id number] [place] [address] 20 Nov, 2012 [facility] [place] [facility] [address] [id number] [place] [address] 18 Nov, 2012 [facility] [place] [facility] [address] [id number] [place] [address] 16 Nov, 2012 [facility] [place] [facility] [address] [id number] [place] [address] 12 Nov, 2012 [facility] [place] [facility] [address] [id number] [place] [address] 11 Nov, 2012 [facility] [place] [facility] [address] [id number] [place] [address] 05 Nov, 2012 [facility] [place] [facility] [address] [id number] [place] [address] 15 Oct, 2012 [facility] [place] [facility] [address] [id number] [place] [address] Oct, [facility] [place] [facility] [address] [id number] [place] [address] Sep, [facility] [place] [facility] [address] [facility] [id number] [place] [address] Sep, [facility] [place] [facility] [address] [id number] [place] [address] Sep, [facility] [place] [facility] [address] [id number] [place] [address] Sep, [facility] [place] [facility] [address] [id number] [place] [address] 15 Sep, 2012 [facility] [place] [facility] [address] [facility] [id number] [place] [address] Sep, [facility] [place] [facility] [address] [facility] [id number] [place] [address] Sep, [facility] [place] [facility] [address] [id number] [place] [address] Aug, [facility] [place] [facility] [address] [id number] [place] [address] Aug, [facility] [place] [facility] [address] [facility] [id number] [place] [address] 16 Aug, 2012 [facility] [place] [facility] [address] [id number] [place] [address] Aug, [facility] [place] [facility] [address] [id number] [place] [address] Aug, [facility] [place] [facility] [address] [id number] [place] [address] Aug, [facility] [place] [facility] [address] [id number] [place] [address] Aug, [facility] [place] [facility] [address] [id number] [place] [address] Aug, [facility] [place] [facility] [address] [id number] [place] [address] July, [facility] [place] [facility] [address] [id number] [place] [address] July, [facility] [place] [facility] [address] [facility] [id number] [place] [address] July, [facility] [place] [facility] [address] [id number] [place] [id number] July, [facility] [place] [facility] [address] [id number] [place] [address] July, [facility] [place] [facility] [address] [id number] [place] [address] Jun, [facility] [place] [facility] [address] [id number] [place] [address] 26 May, 2012 [facility] [place] [facility] [address] [facility] [id number] [place] [address] 14 May, 2012 [facility] [place] [facility] [address] [id number] [place] [address] 04 May, 2012 [facility] [place] [facility] [address] [id number] [place] [address] Apr, [facility] [place] [facility] [address] [id number] [place] [address] Apr, [facility] [place] [facility] [address] [id number] [place] [address] Apr, [facility] [place] [facility] [address] [id number] [place] [address] Mar, [facility] [place] [facility] [address] [id number] [place] [address] Mar, [facility] [place] [facility] [address] [id number] [place] [address] Mar, [facility] [place] [facility] [address] [id number] [place] [address] Mar, [facility] [place] [facility] [address] [id number] [place] [address] Mar, [facility] [place] [facility] [address] [id number] [place] [address] Mar, [facility] [place] [facility] [address] [id number] [place] [address] Mar, [facility] [place] [facility] [address] [id number] [place] [address] Feb, [facility] [place] [facility] [address] [id number] [place] [address] Feb, [facility] [place] [facility] [address] [id number] [place] [address] Feb, [facility] [place] [facility] [address] [id number] [place] [address] Feb, [facility] [place] [facility] [address] [id number] [place] [address] Feb, [facility] [place] [facility] [address] [id number] [place] [address] Feb, [facility] [place] [facility] [address] [id number] [place] [address] Feb, [facility] [place] [facility] [address] [id number] [place] [address] Feb, [facility] [place] [facility] [address] [id number] [place] [address] Jan, [facility] [place] [facility] [address] [id number] [place] [address] Jan, [facility] [place] [facility] [address] [id number] [place] [address] Jan, [facility] [place] [facility] [address] [id number] [place] [address] Jan, [facility] [place] [facility] [address] [id number] [place] [address] Jan, [facility] [place] [facility] [address] [id number] [place] [address] Jan, [facility] [place] [facility] [address] [id number] [place] [address] Jan, [facility] [place] [facility] [address] [id number] [place] [address] Jan, [facility] [place] [facility] [address] [id number] [place] [address] Jan, [facility] [place] [facility] [address] [id number] [place] [address] Jan, [facility] [place] [facility] [address] [id number] [place] [address] Jan, [facility] [place] [facility] [address] [id number] [place] [address] Jan, [facility] [place] [facility] [address] [id number] [place] [address] Jan, [facility] [place] [facility] [address] [id number] [place] [address] Jan, [facility] [place] [facility] [address] [id number] [place] [address] Jan, [facility] [place] [facility] [address] [id number] [place] [address] Jan, [facility] [place] [facility] [address] [id number] [place] [address] Dec, [facility] [place] [facility] [address] [id number] [place] [address] Dec, [facility] [place] [facility] [address] [id number] [place] [address] Dec, [facility] [place] [facility] [address] [id number] [place] [address] Dec, [facility] [place] [facility] [address] [id number] [place] [address] Dec, [facility] [place] [facility] [address] [id number] [place] [address] Dec, [facility] [place] [facility] [address] [id number] [place] [address] Dec, [facility] [place] [facility] [address] [id number] [place] [address] Dec, [facility] [place] [facility] [address] [id number] [place] [address] 08 Dec, 2011 [facility] [place] [facility] [address] [id number] [place] [address] 05 Dec, 2011 [facility] [place] [facility] [address] [id number] [place] [address] 18 Nov, 2011 [facility] [place] [facility] [address] [id number] [place] [address] 13 Nov, 2011 [facility] [place] [facility] [address] [id number] [place] [address] 24 Oct, 2011 [facility] [place] [facility] [address] [id number] [place] [address] Oct, [facility] [place] [facility] [address] [id number] [place] [address] Oct, [facility] [place] [facility] [address] [id number] [place] [address] Oct, [facility] [place] [facility] [address] [id number] [place] [address] Oct, [facility] [place] [facility] [address] [id number] [place] [address] Oct, [facility] [place] [facility] [address] [id number] [place] [address] Oct, [facility] [place] [facility] [address] [id number] [place] [address] Sep, [facility] [place] [facility] [address] [id number] [place] [address] Aug, [facility] [place] [facility] [address] [id number] [place] [address] Aug, [facility] [place] [facility] [address] [id number] [place] [address] Aug, [facility] [place] [facility] [address] [id number] [place] [address] Aug, [facility] [place] [facility] [address] [id number] [place] [address] Aug, [facility] [place] [facility] [address] [id number] [place] [address] July, [facility] [place] [facility] [address] [id number] [place] [address] July, [facility] [place] [facility] [address] [id number] [place] [address] July, [facility] [place] [facility] [address] [id number] [place] [address] Jun, [facility] [place] [facility] [address] [id number] [place] [address] Jun, [facility] [place] [facility] [address] [id number] [place] [address] Jun, [facility] [place] [facility] [address] [id number] [place] [address] Jun, [facility] [place] [facility] [address] [id number] [place] [address] 30 May, 2011 [facility] [place] [facility] [address] [id number] [place] [address] 30 May, 2011 [facility] [address] [id number] [place] [address] 29 May, 2011 [facility] [address] [id number] [place] [address] 28 May, 2011 [facility] [address] [id number] [place] [address] May, [facility] [address] [id number] [place] [address] May, [facility] [address] [id number] [place] [address] May, [facility] [address] [id number] [place] [address] May, [facility] [address] [id number] [place] [address] May, [facility] [address] [id number] [place] [address] 05 May, 2011 [facility] [address] [id number] [place] [address] May, [facility] [address] [id number] [place] [address] May, [facility] [address] [id number] [place] [address] Mar, [facility] [address] [id number] [place] [address] Mar, [facility] [address] [id number] [place] [address] 28 Feb, 2011 [facility] [address] [id number] [place] [address] Feb, [facility] [address] [id number] [place] [address] Feb, [facility] [address] [id number] [place] [address] 15 Feb, 2011 [facility] [address] [id number] [place] [address] Feb, [facility] [address] [id number] [place] [address] Feb, [facility] [address] [id number] [place] [address] Feb, [facility] [address] [id number] [place] [address] Jan, [facility] [address] [id number] [place] [address] Jan, [facility] [address] [id number] [place] [address] Jan, [facility] [address] [id number] [place] [address] Jan, [facility] [address] [id number] [place] [address] Jan, [facility] [address] [id number] [place] [address] Jan, [facility] [address] [id number] [place] [address] Dec, [facility] [address] [id number] [place] [address] Dec, [facility] [address] [id number] [place] [address] Dec, [facility] [address] [id number] [place] [address] July, [facility] [address] [id number] [place] [address] July, [facility] [address] [id number] [place] [address] Feb, [facility] [address] [id number] [place] [address] Jan, [facility] [address] [id number] [place] [address] Dec, [facility] [address] [id number] [place] [address] Dec, [facility] [address] [id number] [place] [address] Sep, [facility] [address] [id number] [place] [address] Aug, [facility] [address] [id number] [place] [address] Jun, [facility] [address] [id number] [place] [address] Jun, [facility] [address] [id number] [place] [address] Jan, [facility] [address] [id number] [place] [address] Jan, [facility] [address] [id number] [place] [address] Jan, [facility] [address] [id number] [place] [address] Jan, [facility] [address] [id number] [place] [address] 29 Dec, 2008 [facility] [id number] [place] [address] 26 Dec, 2008 [facility] [address] [id number] [place] [address] 15 Dec, 2008 [facility] [address] [id number] [place] [address] 17 Nov, 2008 [facility] [address] [id number] [place] [address] July, [facility] [address] [id number] [place] [address] May, [facility] [address] [id number] [place] [address] Apr, [facility] [address] [id number] [place] [address] Feb, [facility] [address] [id number] [place] [address] Dec, IMMUNIZATIONS No Known Immunizations SOCIAL HISTORY [...]
--- OUTSIDE RECORDS SUMMARY | 2019-06-22 19:35 | XMS REPORT ---
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 Active 753811265 Problem Diabetes E11.9 Active 376106889 Problem Type 2 diabetes mellitus with complication E11.8 Active 024912723 Problem Post laminectomy syndrome M96.1 Acti ve 49984072 Problem Bipolar 1 disorder F31.9 Active 3 23874034 Problem New daily persistent headache G44.52 Active 843674858 Problem Type 2 diabetes mellitus with hyperglycemia E11.65 Active 11333867 Problem Other chronic pain G89.29 Active 8 7455772 Problem Essential hypertension I10 Active 58218529 Problem Acute bilateral low back pain with right-sided sciatica M54.41 Active 663595133 Problem Bipolar disorder, in partial remission, most rec ent episode manic F31.73 Active 24352432 Problem Seasonal allergic rhinitis due to pollen J30.1 Active 44909239 Problem Hyperlipidemia, unspecified E78.5 Ac tive 48654777 Problem Eye exam normal Z01.00 Active 2438 17543 Problem Extreme poverty Z59.5 Active 1140 3006 Problem Lumbago with sciatica, left side M54.42 Active 390824295 Problem Hypertriglyceridemia E78.1 Active 443490215 Problem Insulin long-term use Z79.4 Active 886940740 Problem Rhinosinusitis J32.9 Active 57217 000 ALLERGIES No Information ENCOUNTERS Encounter Location Date Diagnosis [facility] [id number] [place] [address] 08 Aug, 2019 [facility] [address] [address] 16 Jun, 2019 [facility] [address] [address] 07 Jun, 2019 [facility] [address] [address] 26 May, 2019 [facility] [address] [address] May, [facility] [address] [address] 17 May, 2019 Borderline intellectual functioning R41. 83 and Bipolar disorder, in partial remission, most recent episode manic F31.73 [place] [address] [address] 17 May, 2019 [facility] [address] [facility] [id number] [place] [address] 15 May, 2019 Diarrhea, unspecified type R 19.7 [place] [address] [address] 09 May, 2019 Borderline intellectual functioning R41. 83 [place] [id number] [place] [address] 09 May, 2019 Type 2 diabetes mellitus with complicati on E11.8 [place] [address] [address] 09 May, 2019 Bipolar 1 disorder F31.9 ; Type 2 diabet es mellitus with complication E11.8 ; Pain of right thumb M79.644 ; Extreme poverty Z59.5 and Low back pain M54.5 [place] [address] [address] 09 May, 2019 [facility] [address] [address] 28 Apr, 2019 Bipolar 1 disorder F31.9 ; Borderline in tellectual functioning R41.83 and Extreme poverty Z59.5 [facility] [address] [facility] [id number] [address] [place] [address] Apr, Seasonal allergic rhinitis d ue to pollen J30.1 [facility] [id number] [place] [address] 17 Apr, 2019 Essential hypertension I10 and Diabetes E11.9 [place] [address] [address] Apr, [place] [address] [address] Mar, Bipolar 1 disorder F31.9 ; Borderline in tellectual functioning R41.83 and Extreme poverty Z59.5 [place] [address] [address] Mar, Exercise counseling Z71.82 [place] [address] [address] Mar, [place] [address] [address] Mar, Bipolar disorder, in partial remission, most recent episode manic F31.73 and 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 [place] [address] [address] Mar, [place] [address] [address] Mar, Exercise counseling Z71.82 [place] [address] [address] Feb, Bipolar 1 disorder F31.9 ; Borderline in tellectual functioning R41.83 and Extreme poverty Z59.5 [place] [address] [address] Feb, [place] [address] [address] Feb, Type 2 diabetes mellitus with complicati on E11.8 [facility] [address] [facility] [id number] [address] [place] [address] Feb, Acute low back pain without sciatica, unspecified back pain laterality M54.5 [facility] [address] [address] Feb, Bipolar 1 disorder F31.9 ; Borderline in tellectual functioning R41.83 and Extreme poverty Z59.5 [facility] [address] [address] Jan, Bipolar 1 disorder F31.9 ; Borderline in tellectual functioning R41.83 and Extreme poverty Z59.5 [facility] [address] [address] Jan, [facility] [address] [address] Jan, Type 2 diabetes mellitus with complicati on E11.8 [facility] [address] [address] Jan, Type 2 diabetes mellitus with complicati on E11.8 ; Dysuria R30.0 and Diarrhea, unspecified type R19.7 [facility] [address] [address] Jan, Bipolar 1 disorder F31.9 ; Borderline in tellectual functioning R41.83 and Extreme poverty Z59.5 [facility] [address] [address] Dec, [facility] [address] [address] Dec, [facility] [address] [address] Dec, [facility] [address] [id number] Dec, [facility] [address] [address] Dec, Rhinosinusitis J32.9 [place] [id number] [place] [address] Dec, [place] [address] [address] Dec, Bipolar 1 disorder F31.9 ; Borderline in tellectual functioning R41.83 and Extreme poverty Z59.5 [place] [address] [address] Dec, Type 2 diabetes mellitus with complicati on E11.8 and Type 2 diabetes mellitus with hyperglycemia E11.65 [place] [address] [address] Dec, [place] [address] [address] Dec, Type 2 diabetes mellitus with complicati on E11.8 ; Insulin long-term use Z79.4 ; Hyperglycemia R73.9 and Yeast infection B37.9 [place] [address] [address] Dec, Encounter for immunization Z23 [place] [address] [address] Nov, [place] [address] [address] Nov, Bipolar 1 disorder F31.9 ; Borderline in tellectual functioning R41.83 and Extreme poverty Z59.5 [place] [address] [address] Nov, [facility] [address] [address] Nov, [place] [address] [address] Nov, Borderline intellectual functioning R41. 83 and Bipolar disorder, in partial remission, most recent episode manic F31.73 [facility] [address] [facility] [id number] [address] [place] [address] Nov, Epigastric abdominal pain R1 0.13 [facility] [id number] [place] [address] 04 Nov, 2018 Bipolar 1 disorder F31.9 ; Borderline in tellectual functioning R41.83 and Extreme poverty Z59.5 [facility] [address] [id number] [address] [place] [address] Oct, Dysuria R30.0 and Acute cyst itis without hematuria N30.00 [facility] [address] [id number] [address] [place] [address] Oct, [facility] [address] [address] Oct, [facility] [address] [address] Oct, Bipolar 1 disorder F31.9 ; Borderline in tellectual functioning R41.83 and Extreme poverty Z59.5 [facility] [address] [address] Oct, [facility] [address] [address] Oct, [facility] [address] [address] 08 Oct, 2018 Bipolar disorder, in partial remission, most recent episode manic F31.73 and 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 [facility] [address] [address] Oct, Bipolar 1 disorder F31.9 ; Borderline in tellectual functioning R41.83 and Extreme poverty Z59.5 [facility] [id number] [place] [address] Oct, Diarrhea, unspecified type R19.7 [facility] [address] [id number] [place] [id number] Sep, Dental examination Z01.20 and Dental car ies K02.9 [facility] [address] [id number] [address] [place] [address] Sep, Mouth pain K13.79 [place] [address] [address] Sep, [place] [address] [address] Sep, Bipolar 1 disorder F31.9 ; Borderline in tellectual functioning R41.83 and Extreme poverty Z59.5 [place] [address] [address] Sep, [place] [address] [address] Sep, [place] [address] [address] Sep, Diabetes E11.9 ; Hyperglycemia R73.9 ; L eliseo term current use of insulin Z79.4 and Diarrhea, unspecified type R19.7 [place] [address] [address] Sep, [place] [address] [address] Sep, Bipolar 1 disorder F31.9 ; Borderline in tellectual functioning R41.83 and Extreme poverty Z59.5 [place] [address] [address] Sep, [place] [address] [address] Sep, [place] [address] [address] Aug, Bipolar 1 disorder F31.9 ; Borderline in tellectual functioning R41.83 and Extreme poverty Z59.5 [place] [address] [address] Aug, Exercise counseling Z71.82 [place] [address] [address] Aug, Bipolar 1 disorder F31.9 ; Borderline in tellectual functioning R41.83 and Extreme poverty Z59.5 [facility] [address] [address] Aug, Borderline intellectual functioning R41. 83 and Bipolar disorder, in partial remission, most recent episode manic F31.73 [facility] [address] [address] Aug, Low back pain M54.5 [facility] [address] [address] Aug, Borderline intellectual functioning R41. 83 and Bipolar disorder, in partial remission, most recent episode manic F31.73 [address] [address] [address] July, Acute superficial gastritis without hemo rrhage K29.00 ; Low back pain M54.5 and Other chronic pain G89.29 [place] [address] [address] July, [facility] [address] [address] July, [facility] [address] [address] Jun, [facility] [address] [facility] [id number] [address] [place] [address] Jun, Bilateral lower extremity ed epi R60.0 [facility] [address] [address] Jun, Borderline intellectual functioning R41. 83 and Bipolar disorder, in partial remission, most recent episode manic F31.73 [facility] [address] [address] Jun, [facility] [address] [address] May, Bronchitis J40 [facility] [address] [address] May, Screening for breast cancer Z12.31 and E ncounter for immunization Z23 [address] [address] [address] May, Bipolar 1 disorder F31.9 ; Borderline in tellectual functioning R41.83 and Extreme poverty Z59.5 [address] [address] [address] Apr, [address] [address] 07 Apr, 2018 Bipolar 1 disorder F31.9 ; Borderline in tellectual functioning R41.83 and Extreme poverty Z59.5 [address] [address] [address] 05 Apr, 2018 Irritable bowel syndrome with diarrhea K 58.0 and Dental abscess K04.7 [place] [address] [address] Mar, [place] [address] [address] Mar, [address] [address] Mar, Bipolar 1 disorder F31.9 ; Borderline in tellectual functioning R41.83 and Extreme poverty Z59.5 [address] [address] [address] Mar, Hypertriglyceridemia E78.1 [place] [address] [address] Mar, Borderline intellectual functioning R41. 83 and Bipolar disorder, in partial remission, most recent episode manic F31.73 [address] [address] [address] Mar, Bipolar 1 disorder F31.9 ; Borderline in tellectual functioning R41.83 and Extreme poverty Z59.5 [address] [address] [address] Feb, Generalized abdominal pain R10.84 and Di arrhea, unspecified type R19.7 [address] [address] [address] Feb, [address] [address] [address] Feb, Myalgia M79.10 and Nausea R11.0 [address] [address] [address] Feb, Bipolar 1 disorder F31.9 ; Borderline in tellectual functioning R41.83 and Extreme poverty Z59.5 [address] [address] [address] Feb, [address] [address] Feb, Diabetes E11.9 ; Hyperglycemia R73.9 and Diarrhea, unspecified R19.7 [address] [address] [address] Feb, Diarrhea, unspecified type R19.7 ; Abdom inal pain R10.9 and Encounter for immunization Z23 [address] [address] [address] Jan, Bipolar 1 disorder F31.9 ; Borderline in tellectual functioning R41.83 and Extreme poverty Z59.5 [address] [address] Dec, Bipolar 1 disorder F31.9 ; Borderline in tellectual functioning R41.83 and Extreme poverty Z59.5 [address] [address] [address] Nov, [place] [address] [address] Nov, Hypertriglyceridemia E78.1 [address] [address] Nov, Bipolar 1 disorder F31.9 ; Borderline in tellectual functioning R41.83 and Extreme poverty Z59.5 [address] [address] [address] 18 Nov, 2017 Type 2 diabetes mellitus with complicati on E11.8 [address] [address] [address] 18 Nov, 2017 Borderline intellectual functioning R41. 83 and Bipolar disorder, in partial remission, most recent episode manic F31.73 [address] [address] [address] 12 Nov, 2017 Type 2 diabetes mellitus with complicati on E11.8 [address] [address] [address] 11 Nov, 2017 Bipolar 1 disorder F31.9 ; Borderline in tellectual functioning R41.83 and Extreme poverty Z59.5 [address] [address] [address] Nov, Type 2 diabetes mellitus with complicati on E11.8 ; Pain of left upper arm M79.622 ; Pain in right upper arm M79.621 ; Hyperglycemia R73.9 ; Lumbago with sciatica, left side M54.42 and Other chronic pain G89.29 [address] [address] [address] Oct, Bipolar 1 disorder F31.9 ; Borderline in tellectual functioning R41.83 and Extreme poverty Z59.5 [address] [address] Oct, Type 2 diabetes mellitus with hyperglyce didi E11.65 ; assisted current use of insulin Z79.4 and Other acute gastritis without hemorrhage K29.00 [address] [address] [address] Oct, Bipolar 1 disorder F31.9 ; Borderline in tellectual functioning R41.83 and Extreme poverty Z59.5 [address] [address] [address] 16 Marvin, 2018 Diarrhea, unspecified R19.7 and Vomiting , unspecified R11.10 [facility] [address] [address] Aug, Type 2 diabetes mellitus with complicati on E11.8 [facility] [address] [address] Aug, [facility] [address] [address] Aug, Bipolar 1 disorder F31.9 ; Borderline in tellectual functioning R41.83 and Extreme poverty Z59.5 [address] [address] [address] Aug, Borderline intellectual functioning R41. 83 and Bipolar disorder, in partial remission, most recent episode manic F31.73 [address] [address] [address] Aug, Bipolar 1 disorder F31.9 [address] [address] Aug, [facility] [address] [address] Aug, [address] [address] [address] Aug, Bipolar 1 disorder F31.9 ; Borderline in tellectual functioning R41.83 and Extreme poverty Z59.5 [address] [address] [address] July, Type 2 diabetes mellitus with complicati on E11.8 [facility] [address] [address] July, Bipolar 1 disorder F31.9 ; Borderline in tellectual functioning R41.83 and Extreme poverty Z59.5 [facility] [address] [address] Jun, Bipolar 1 disorder F31.9 ; Borderline in tellectual functioning R41.83 and Extreme poverty Z59.5 [place] [address] [address] Jun, Bipolar 1 disorder F31.9 ; Borderline in tellectual functioning R41.83 and Extreme poverty Z59.5 [place] [address] [address] Jun, Bipolar 1 disorder F31.9 ; Borderline in tellectual functioning R41.83 and Extreme poverty Z59.5 [place] [address] [address] May, Urinary tract infection without hematuri a, site unspecified N39.0 [place] [address] [address] May, Bipolar 1 disorder F31.9 ; Borderline in tellectual functioning R41.83 and Extreme poverty Z59.5 [place] [address] [address] Apr, Diabetes E11.9 and Breast cancer screeni ng Z12.31 [place] [address] [address] 20 Apr, 2017 Bipolar 1 disorder F31.9 and 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 [place] [address] [address] Mar, Bipolar 1 disorder F31.9 ; Borderline in tellectual functioning R41.83 and Extreme poverty Z59.5 [place] [address] [address] Mar, New daily persistent headache G44.52 ; L eg pain 729.5 and History of carpal tunnel release Z98.890 [place] [address] [address] Mar, Hyperlipidemia, unspecified E78.5 [place] [address] [address] Mar, Bipolar 1 disorder F31.9 ; Borderline in tellectual functioning R41.83 and Extreme poverty Z59.5 [place] [address] [address] Feb, Bipolar 1 disorder F31.9 ; Borderline in tellectual functioning R41.83 and Extreme poverty Z59.5 [place] [address] [address] Feb, Diabetes E11.9 [place] [address] [id number] Feb, Viral syndrome B34.9 [place] [address] [address] Jan, Other viral agents as the cause of disea ses classified elsewhere B97.89 and Acute upper respiratory infection, unspecified J06.9 [place] [address] [address] Jan, Bipolar 1 disorder F31.9 and 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 [place] [address] [address] Jan, Bipolar 1 disorder F31.9 ; Borderline in tellectual functioning R41.83 and Extreme poverty Z59.5 [place] [address] [address] Dec, Diabetes E11.9 [place] [address] [address] Dec, Diabetes E11.9 and Encounter for immuniz ation Z23 [place] [address] [address] Dec, Bipolar 1 disorder F31.9 ; Borderline in tellectual functioning R41.83 and Extreme poverty Z59.5 [place] [address] [address] Dec, Back pain M54.9 [place] [address] [address] Nov, [place] [address] [place] [address] Nov, Bipolar 1 disorder F31.9 ; Borderline in tellectual functioning R41.83 and Extreme poverty Z59.5 [place] [address] [place] [address] Nov, Bipolar 1 disorder F31.9 ; Borderline in tellectual functioning R41.83 and Extreme poverty Z59.5 [place] [address] [address] Oct, Borderline intellectual functioning R41. 83 and Bipolar 1 disorder F31.9 [place] [address] [address] Oct, Bipolar 1 disorder F31.9 ; Borderline in tellectual functioning R41.83 and Extreme poverty Z59.5 [place] [address] [address] Oct, Back pain M54.9 [place] [address] [address] Oct, Borderline intellectual functioning R41. 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 and Bipolar 1 disorder F31.9 [place] [address] [address] Sep, Bipolar 1 disorder F31.9 ; Borderline in tellectual functioning R41.83 and Extreme poverty Z59.5 [place] [address] [place] [address] Aug, Diabetes E11.9 ; Hyperlipidemia, unspeci fied E78.5 and Lumbar radiculopathy M54.16 [place] [address] [address] 15 Aug, 2016 Bipolar 1 disorder F31.9 ; Borderline in tellectual functioning R41.83 and Extreme poverty Z59.5 [facility] [address] [address] 13 Aug, 2016 [facility] [address] [address] Aug, [facility] [address] [address] Aug, [facility] [address] [address] July, [place] [address] [address] July, Acute bilateral low back pain with right -sided sciatica M54.41 [place] [address] [address] July, Bipolar 1 disorder F31.9 ; Borderline in tellectual functioning R41.83 and Extreme poverty Z59.5 [place] [address] [address] July, Back pain M54.9 and Diabetes E11.9 [place] [address] [address] Jun, Bipolar 1 disorder F31.9 ; Borderline in tellectual functioning R41.83 and Extreme poverty Z59.5 [place] [address] [address] Jun, Bipolar 1 disorder F31.9 ; Borderline in tellectual functioning R41.83 and Extreme poverty Z59.5 [place] [address] [address] May, Visit for pelvic exam Z01.419 ; Acute va ginitis N76.0 and Diabetes E11.9 [place] [address] [address] May, Bipolar 1 disorder F31.9 ; Borderline in tellectual functioning R41.83 and Extreme poverty Z59.5 [place] [address] [address] 08 May, 2016 [place] [address] [address] May, [place] [address] [address] May, Bipolar 1 disorder F31.9 ; Borderline in tellectual functioning R41.83 and Extreme poverty Z59.5 [place] [address] [address] May, Hyperlipidemia, unspecified E78.5 [place] [address] [address] 13 Apr, 2016 Breast cancer screening Z12.39 [place] [address] [address] Mar, [place] [address] [address] Mar, Bipolar disorder, current episode mixed, unspecified F31.60 [place] [address] [address] Mar, Bipolar 1 disorder F31.9 ; Borderline in tellectual functioning R41.83 and Extreme poverty Z59.5 [place] [address] [address] Feb, Acute nasopharyngitis J00 [place] [address] [address] [address] 27 Feb, 2016 Dental examination Z01.20 [place] [address] [address] 21 Feb, 2016 Dental cavities K02.9 and Chronic period ontitis, unspecified K05.30 [place] [address] [address] 13 Feb, 2016 Low back pain M54.5 and Extreme poverty Z59.5 [place] [address] [address] 08 Feb, 2016 [place] [id number] 05 Feb, 2016 Routine gynecological examination V72.31 ; Breast cancer screening Z12.39 and Herpes simplex type 1 infection B00.9 [place] [id number] 02 Feb, 2016 [address]11[address] [address] 01 Feb, 2016 Encounter for dental examination and leti aning without abnormal findings Z01.[address] [address] Jan, Hyperlipidemia, unspecified E78.[address] [address] 22 Jan, 2016 Bipolar 1 disorder F31.9 ; Borderline in tellectual functioning R41.83 and Extreme poverty Z59.[address] [address] 18 Jan, 2016 Diabetes E11.[address] [address] 17 Jan, 2016 Diabetes E11.[address] [address] 14 Dec, 2015 Bipolar 1 disorder F31.9 ; Borderline in tellectual functioning R41.83 and Extreme poverty Z59.[address] [address] 13 Dec, 2015 Bipolar disorder, current episode mixed, unspecified F31.60 and Borderline intellectual functioning R41.[address] [address] 16 Nov, 2015 Bipolar 1 disorder F31.9 ; Borderline in tellectual functioning R41.83 ; Extreme poverty Z59.5 and Non compliance with medical treatment Z91.19 [place] [address] [address] Oct, [place] [address] [address] Oct, Dental caries K02.9 [place] [address] [address] Oct, Low back pain M54.5 and Other chronic pa in G89.29 [place] [address] [address] Oct, Bipolar 1 disorder F31.9 ; Borderline in tellectual functioning R41.83 ; Extreme poverty Z59.5 and Non compliance with medical treatment Z91.19 [place] [address] [address] Oct, [place] [address] [address] Oct, [place] [address] [address] Oct, Dental examination Z01.20 [place] [address] [address] Oct, Bipolar 1 disorder F31.9 ; Borderline in tellectual functioning R41.83 ; Extreme poverty Z59.5 and Non compliance with medical treatment Z91.19 [place] [address] [address] Oct, [place] [address] [address] Sep, Type 2 diabetes mellitus with complicati on E11.[address] [address] Sep, Bipolar disorder, current episode mixed, unspecified F31.60 [place] [address] [address] Sep, Bipolar disorder, current episode mixed, unspecified F31.60 [place] [address] [address] Sep, Bipolar disorder, in partial remission, most recent episode manic F31.73 ; 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 ; Extreme poverty Z59.5 and Non compliance with medical treatment Z91.19 [place] [address] [address] Aug, Bipolar disorder, in partial remission, most recent episode manic F31.73 ; 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 ; Extreme poverty Z59.5 and Non compliance with medical treatment Z91.19 [place] [address] [address] Aug, Bipolar disorder, in partial remission, most recent episode manic F31.73 ; 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 ; Extreme poverty Z59.5 and Non compliance with medical treatment Z91.19 [place] [address] [address] Aug, [place] [address] [address] July, Bipolar disorder, in partial remission, most recent episode manic F31.73 ; 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 ; Extreme poverty Z59.5 and Non compliance with medical treatment Z91.19 [place] [address] [address] July, Bipolar disorder, current episode mixed, unspecified F31.60 [place] [address] [address] July, Bipolar disorder, in partial remission, most recent episode manic F31.73 ; 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 ; Extreme poverty Z59.5 and Non compliance with medical treatment Z91.19 [place] [address] [address] July, assisted current use of opiate analgesi c Z79.891 and Chronic pain G89.29 [place] [address] [address] Jun, assisted current use of opiate analgesi c Z79.891 and Bipolar 1 disorder F31.9 [place] [address] [address] Jun, [place] [address] [address] Jun, [place] [address] [address] Jun, [place] [address] [address] Jun, Bipolar disorder, in partial remission, most recent episode manic F31.73 ; 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 and Non compliance with medical treatment Z91.19 [place] [address] [address] May, Bipolar disorder, in partial remission, most recent episode manic F31.73 ; 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 and Non compliance with medical treatment Z91.19 [place] [address] [address] May, Bipolar disorder, in partial remission, most recent episode manic F31.73 [place] [address] [address] May, Diabetes E11.9 and Chronic pain G89.29 [place] [address] [address] May, [place] [address] [address] May, Bipolar disorder, in partial remission, most recent episode manic F31.73 ; Non compliance with medical treatment Z91.19 and 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 [place] [address] [address] May, Type 2 diabetes mellitus with complicati on E11.8 and Back pain M54.9 [place] [address] [address] May, Bipolar disorder, in partial remission, most recent episode manic F31.73 and 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 [place] [address] [place] [id number] Apr, [place] [address] [address] Apr, [place] [address] [place] 4[address] Apr, [place] [address] [address] Apr, Diabetes E11.9 ; Irritable bowel syndrom e with diarrhea K58.0 and Lumbar radiculopathy M54.16 [place] [address] [address] Apr, Breast screening Z12.[address] [address] Apr, Bipolar disorder, in partial remission, most recent episode manic F31.73 ; Non compliance with medical treatment Z91.19 and 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 [place] [address] [address] Mar, Edema, unspecified type R60.9 and Type 2 diabetes mellitus with complication E11.8 [place] [address] [address] Mar, Bipolar disorder, in partial remission, most recent episode manic F31.73 ; Non compliance with medical treatment Z91.19 ; 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 and Extreme poverty Z59.5 [place] [address] [address] Mar, Bipolar disorder, current episode mixed, unspecified F31.60 ; 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 ; Extreme poverty Z59.5 and Generalized anxiety disorder F41.[address] [address] Mar, Bipolar disorder, in partial remission, most recent episode manic F31.73 ; 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 and Extreme poverty Z59.5 [place] [address] [address] Feb, Bipolar disorder, in partial remission, most recent episode manic F31.73 ; 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 and Extreme poverty Z59.5 [place] [address] [address] Feb, Bipolar disorder, in partial remission, most recent episode manic F31.73 ; 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 and Extreme poverty Z59.5 [place] [address] [address] Feb, [address] [address] Jan, Type 2 diabetes mellitus with complicati on E11.8 and Petechiae R23.3 [place] [address] [address] Jan, Type 2 diabetes mellitus with complicati on E11.8 ; Edema, unspecified R60.9 ; Petechiae R23.3 and Diabetes E11.9 [place] [address] [address] Jan, Bipolar disorder, in partial remission, most recent episode manic F31.73 ; 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 and Extreme poverty Z59.5 [place] [address] [address] Jan, Bipolar disorder, in partial remission, most recent episode manic F31.73 ; 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 and Extreme poverty Z59.5 [place] [address] [address] Dec, Bipolar disorder, in partial remission, most recent episode manic F31.73 [place] [address] [address] Dec, Edema, due to unspecified malnutrition t ype, unspecified edema R60.9 and Essential hypertension I10 [facility] [address] [address] Dec, Bipolar disorder, in partial remission, most recent episode manic F31.73 [place] [address] [address] Nov, Bipolar I disorder, most recent episode (or current) mixed, unspecified 296.60 [place] [address] [address] Nov, Stress incontinence, female 625.6 ; Back pain 724.5 and Leg pain 729.5 [place] [address] [address] Nov, Generalized anxiety disorder 300.02 and Bipolar II disorder 296.89 [place] [address] [address] Nov, Bipolar I disorder, most recent episode (or current) mixed, unspecified 296.60 [place] [address] [address] Oct, [place] [address] [address] Oct, [place] [address] [address] Oct, [facility] [address] [address] Oct, Bipolar I disorder, most recent episode (or current) mixed, unspecified 296.60 [facility] [address] [address] Sep, Diabetes 250.00 [facility] [address] [address] Sep, Bipolar I disorder, most recent episode (or current) mixed, unspecified 296.60 [facility] [address] [address] Sep, [facility] [address] [place] [id number] [place] [address] Sep, [facility] [address] [address] Sep, Bipolar I disorder, most recent episode (or current) mixed, unspecified 296.60 [facility] [address] [address] Sep, Bipolar I disorder, most recent episode (or current) mixed, unspecified 296.60 [facility] [address] [address] Sep, [facility] [address] [address] Sep, Anxiety 300.00 ; Diabetes 250.00 and Hyp erlipidemia 272.4 [facility] [address] [address] Aug, [facility] [address] [address] Aug, [facility] [address] [address] Aug, [facility] [address] [address] Aug, Bipolar I disorder, most recent episode (or current) mixed, unspecified 296.60 [facility] [address] [address] Aug, Generalized anxiety disorder 300.02 and Bipolar II disorder 296.89 [facility] [address] [address] July, Bipolar I disorder, most recent episode (or current) mixed, unspecified 296.60 [facility] [address] [address] July, Cough 786.2 [facility] [address] [address] July, Bipolar I disorder, most recent episode (or current) mixed, unspecified 296.60 [facility] [address] [place] [id number] [place] [address] 30 Jun, 2014 Diabetes 250.00 [facility] [address] [place] [id number] [place] [address] 14 Jun, 2014 [facility] [address] [place] [id number] [place] [address] Jun, [facility] [address] [place] [id number] [place] [address] May, [facility] [address] [place] [id number] [place] [address] May, [facility] [address] [place] [id number] [place] [address] May, [facility] [address] [place] [id number] [place] [address] May, [facility] [address] [place] [id number] [place] [address] May, [facility] [address] [place] [id number] [place] [address] May, [facility] [address] [place] [id number] [place] [address] Apr, [facility] [address] [place] [id number] [place] [address] Apr, [facility] [address] [place] [id number] [place] [address] Apr, [facility] [address] [place] [id number] [place] [address] Apr, [facility] [address] [place] [id number] [place] [address] Apr, [facility] [address] [place] [id number] [place] [address] Apr, [facility] [address] [place] [id number] [place] [address] Apr, [facility] [address] [id number] [place] [address] Apr, [facility] [address] [id number] [place] [address] Mar, [facility] [address] [id number] [place] [address] Mar, [facility] [address] [id number] [place] [address] Mar, [facility] [address] [id number] [place] [address] Mar, [facility] [address] [id number] [place] [address] Mar, [facility] [address] [id number] [place] [address] Mar, [facility] [address] [id number] [place] [address] Mar, [facility] [address] [id number] [place] [address] Mar, [facility] [address] [id number] [place] [address] Feb, [facility] [address] [id number] [place] [address] Feb, [facility] [address] [id number] [place] [address] Feb, [facility] [address] [id number] [place] [address] Feb, [facility] [address] [id number] [place] [address] Feb, [facility] [address] [id number] [place] [address] Feb, [facility] [address] [id number] [place] [address] Feb, [facility] [address] [id number] [place] [address] Feb, [facility] [address] [id number] [place] [address] Feb, [facility] [address] [id number] [place] [address] Feb, [facility] [address] [id number] [place] [address] Jan, [facility] [address] [id number] [place] [address] Jan, [facility] [address] [id number] [place] [address] Jan, [facility] [address] [id number] [place] [address] Jan, [facility] [address] [id number] [place] [address] Jan, [facility] [address] [id number] [place] [address] Jan, [facility] [address] [id number] [place] [address] Jan, [facility] [address] [id number] [place] [address] Jan, [facility] [address] [id number] [place] [address] Jan, [facility] [address] [id number] [place] [address] Jan, [facility] [address] [id number] [place] [address] Jan, [facility] [address] [id number] [place] [address] Jan, [facility] [address] [id number] [place] [address] Jan, [facility] [address] [id number] [place] [address] Jan, [facility] [address] [id number] [place] [address] Jan, 2013 [facility] [address] [id number] [place] [address] Dec, 2013 [facility] [address] [id number] [place] [address] Dec, 2013 [facility] [address] [id number] [place] [address] Dec, 2013 [facility] [address] [id number] [place] [address] Dec, 2013 [facility] [address] [id number] [place] [address] Dec, [facility] [address] [id number] [place] [address] Dec, 2013 [facility] [address] [id number] [place] [address] Dec, 2013 [facility] [address] [id number] [place] [address] 07 Dec, 2013 [facility] [address] [id number] [place] [address] 25 Nov, 2013 [facility] [address] [id number] [place] [address] 25 Sep, 2013 [facility] [address] [id number] [place] [address] 10 Sep, 2013 [facility] [address] [id number] [place] [address] 10 Sep, 2013 [facility] [address] [id number] [place] [address] 08 Sep, 2013 [facility] [address] [id number] [place] [address] 08 Sep, 2013 [facility] [address] [id number] [place] [address] 08 Sep, 2013 [facility] [address] [id number] [place] [address] 08 Sep, 2013 [facility] [address] [id number] [place] [address] 08 Nov, 2013 [facility] [address] [facility] [id number] [place] [address] 08 Nov, 2013 [facility] [address] [id number] [place] [address] 04 Nov, 2013 [facility] [address] [facility] [id number] [place] [address] 04 Nov, 2013 [facility] [address] [facility] [id number] [place] [address] 03 Nov, 2013 [facility] [address] [facility] [id number] [place] [address] Nov, 2013 [facility] [address] [id number] [place] [address] Nov, 2013 [facility] [address] [id number] [place] [address] Oct, [facility] [address] [id number] [place] [address] Oct, [facility] [address] [id number] [place] [address] Oct, [facility] [address] [id number] [place] [address] Oct, [facility] [address] [id number] [place] [address] Oct, [facility] [address] [id number] [place] [address] Oct, [facility] [address] [id number] [place] [address] Oct, [facility] [address] [id number] [place] [address] Oct, [facility] [address] [id number] [place] [address] Oct, [facility] [address] [id number] [place] [address] Oct, [facility] [address] [id number] [place] [address] Oct, [facility] [address] [facility] [id number] [place] [address] Oct, [facility] [address] [id number] [place] [address] Oct, [facility] [address] [facility] [id number] [place] [address] Oct, [facility] [address] [facility] [id number] [place] [address] Sep, [facility] [address] [id number] [place] [address] Sep, [facility] [address] [id number] [place] [address] Sep, [facility] [address] [id number] [place] [address] Sep, [facility] [address] [facility] [id number] [place] [address] Sep, [facility] [address] [id number] [place] [address] Sep, [facility] [address] [id number] [place] [address] Sep, [facility] [address] [id number] [place] [address] Sep, [facility] [address] [facility] [id number] [place] [address] Aug, [facility] [address] [id number] [place] [address] Aug, [facility] [address] [id number] [place] [address] Aug, [facility] [address] [id number] [place] [address] Aug, [facility] [address] [id number] [place] [address] Aug, [facility] [address] [id number] [place] [address] Aug, [facility] [address] [id number] [place] [address] Aug, [facility] [address] [id number] [place] [address] Aug, [facility] [address] [id number] [place] [address] July, [facility] [address] [id number] [place] [address] July, [facility] [address] [id number] [place] [address] July, [facility] [address] [id number] [place] [address] July, [facility] [place] [facility] [address] [id number] [place] [address] July, [facility] [place] [facility] [address] [id number] [place] [address] July, [facility] [place] [facility] [address] [id number] [place] [address] July, [facility] [place] [facility] [address] [id number] [place] [address] July, [facility] [place] [facility] [address] [id number] [place] [address] Jun, [facility] [place] [facility] [address] [id number] [place] [address] Jun, [facility] [place] [facility] [address] [id number] [place] [address] Jun, [facility] [place] [facility] [address] [id number] [place] [address] Jun, [facility] [place] [facility] [address] [id number] [place] [address] Jun, [facility] [place] [facility] [address] [facility] [id number] [place] [address] Jun, [facility] [place] [facility] [address] [facility] [id number] [place] [address] Jun, [facility] [place] [facility] [address] [id number] [place] [address] Jun, [facility] [place] [facility] [address] [id number] [place] [address] Jun, [facility] [place] [facility] [address] [facility] [id number] [place] [address] Jun, [facility] [place] [facility] [address] [id number] [place] [address] Jun, [facility] [place] [facility] [address] [id number] [place] [address] Jun, [facility] [place] [facility] [address] [id number] [place] [address] May, [facility] [place] [facility] [address] [id number] [place] [address] May, [facility] [place] [facility] [address] [id number] [place] [address] May, [facility] [place] [facility] [address] [id number] [place] [address] May, [facility] [place] [facility] [address] [id number] [place] [address] May, [facility] [place] [facility] [address] [id number] [place] [address] May, [facility] [place] [facility] [address] [id number] [place] [address] May, [facility] [place] [facility] [address] [id number] [place] [address] May, [facility] [place] [facility] [address] [id number] [place] [address] May, [facility] [place] [facility] [address] [id number] [place] [address] May, [facility] [place] [facility] [address] [facility] [id number] [place] [address] May, [facility] [place] [facility] [address] [id number] [place] [address] May, [facility] [place] [facility] [address] [id number] [place] [address] May, [facility] [address] [id number] [place] [address] May, [facility] [address] [id number] [place] [address] Apr, [facility] [address] [id number] [place] [address] Apr, [facility] [address] [id number] [place] [address] Apr, [facility] [address] [id number] [place] [address] Apr, [facility] [address] [id number] [place] [address] Apr, [facility] [address] [id number] [place] [address] Apr, [facility] [address] [id number] [place] [address] Mar, [facility] [address] [id number] [place] [address] Mar, [facility] [address] [id number] [place] [address] Mar, [facility] [address] [id number] [place] [address] Mar, [facility] [address] [id number] [place] [address] Mar, [facility] [address] [id number] [place] [address] Mar, [facility] [address] [facility] [id number] [place] [address] Mar, [facility] [address] [id number] [place] [address] Mar, [facility] [address] [id number] [place] [address] Mar, [facility] [address] [id number] [place] [address] Mar, [facility] [address] [id number] [place] [address] Mar, [facility] [address] [id number] [place] [address] Mar, [facility] [address] [id number] [place] [address] Mar, [facility] [address] [id number] [place] [address] Mar, [facility] [address] [id number] [place] [address] Feb, [facility] [address] [id number] [place] [address] Feb, [facility] [address] [id number] [place] [address] Feb, [facility] [address] [id number] [place] [address] Feb, [facility] [address] [id number] [place] [address] Feb, [facility] [address] [id number] [place] [address] Feb, [facility] [address] [id number] [place] [address] Feb, [facility] [address] [id number] [place] [address] Feb, [facility] [address] [id number] [place] [address] 09 Feb, 2012 [facility] [address] [id number] [place] [address] Feb, 2012 [facility] [address] [id number] [place] [address] Feb, 2012 [facility] [address] [id number] [place] [address] Feb, 2012 [facility] [address] [id number] [place] [address] Feb, 2012 [facility] [address] [id number] [place] [address] Feb, 2012 [facility] [address] [id number] [place] [address] Feb, 2012 [facility] [address] [id number] [place] [address] Feb, 2012 [facility] [address] [id number] [place] [address] 24 Dec, 2012 [facility] [address] [id number] [place] [address] 24 Dec, 2012 [facility] [id number] [place] [address] 16 Dec, 2012 [facility] [address] [id number] [place] [address] 16 Dec, 2012 [facility] [address] [id number] [place] [address] 16 Dec, 2012 [facility] [address] [id number] [place] [address] 16 Dec, 2012 [facility] [id number] [place] [address] 14 Dec, 2012 [facility] [address] [id number] [place] [address] 14 Dec, 2012 [facility] [address] [id number] [place] [address] 10 Dec, 2012 [facility] [address] [id number] [place] [address] 10 Dec, 2012 [facility] [address] [id number] [place] [address] 10 Dec, 2012 [facility] [address] [id number] [place] [address] 10 Dec, 2012 [facility] [address] [id number] [place] [address] Dec, [facility] [address] [facility] [id number] [place] [address] 25 Nov, 2012 [facility] [address] [id number] [place] [address] 20 Nov, 2012 [facility] [address] [id number] [place] [address] 18 Nov, 2012 [facility] [address] [id number] [place] [address] 16 Nov, 2012 [facility] [address] [id number] [place] [address] 12 Nov, 2012 [facility] [address] [id number] [place] [address] 11 Nov, 2012 [facility] [address] [id number] [place] [address] 05 Nov, 2012 [facility] [address] [id number] [place] [address] 15 Oct, 2012 [facility] [address] [id number] [place] [address] Oct, [facility] [address] [facility] [id number] [place] [address] Sep, [facility] [address] [id number] [place] [address] Sep, [facility] [address] [id number] [place] [address] Sep, [facility] [address] [id number] [place] [address] 17 Sep, 2012 [facility] [address] [facility] [id number] [place] [address] 15 Sep, 2012 [facility] [address] [facility] [id number] [place] [address] Sep, [facility] [address] [id number] [place] [address] 08 Sep, 2012 [facility] [address] [id number] [place] [address] Aug, [facility] [address] [facility] [id number] [place] [address] Aug, [facility] [address] [id number] [place] [address] Aug, [facility] [address] [id number] [place] [address] Aug, [facility] [address] [id number] [place] [address] Aug, [facility] [address] [id number] [place] [address] Aug, [facility] [address] [id number] [place] [address] Aug, [facility] [address] [id number] [place] [address] Aug, [facility] [address] [id number] [place] [address] July, [facility] [address] [facility] [id number] [place] [address] July, [facility] [address] [facility] [id number] [place] [address] July, [facility] [address] [facility] [id number] [place] [id number] July, [facility] [address] [id number] [place] [address] July, [facility] [address] [id number] [place] [address] Jun, [facility] [address] [facility] [id number] [place] [address] May, [facility] [address] [id number] [place] [address] May, [facility] [address] [id number] [place] [address] May, [facility] [address] [id number] [place] [address] Apr, [facility] [address] [id number] [place] [address] Apr, [facility] [address] [id number] [place] [address] Apr, [facility] [address] [id number] [place] [address] Mar, [facility] [address] [id number] [place] [address] Mar, [facility] [address] [id number] [place] [address] Mar, [facility] [address] [id number] [place] [address] Mar, [facility] [address] [id number] [place] [address] Mar, [facility] [address] [id number] [place] [address] Mar, [facility] [address] [id number] [place] [address] Mar, [facility] [address] [id number] [place] [address] Feb, [facility] [address] [id number] [place] [address] Feb, [facility] [address] [id number] [place] [address] Feb, [facility] [address] [id number] [place] [address] 18 Feb, 2012 [facility] [address] [id number] [place] [address] Feb, [facility] [address] [id number] [place] [address] Feb, [facility] [address] [id number] [place] [address] Feb, [facility] [address] [id number] [place] [address] Feb, [facility] [address] [id number] [place] [address] Jan, [facility] [address] [id number] [place] [address] Jan, [facility] [id number] [place] [address] Jan, [facility] [address] [id number] [place] [address] Jan, [facility] [address] [id number] [place] [address] Jan, [facility] [address] [id number] [place] [address] Jan, [facility] [address] [id number] [place] [address] Jan, [facility] [address] [id number] [place] [address] Jan, [facility] [address] [id number] [place] [address] Jan, [facility] [address] [id number] [place] [address] Jan, [facility] [address] [id number] [place] [address] 05 Jan, 2012 [facility] [address] [id number] [place] [address] Jan, [facility] [address] [id number] [place] [address] Jan, [facility] [address] [id number] [place] [address] Jan, [facility] [address] [id number] [place] [address] Jan, [facility] [address] [id number] [place] [address] Jan, [facility] [address] [id number] [place] [address] Dec, [facility] [address] [id number] [place] [address] Dec, [facility] [address] [id number] [place] [address] Dec, [facility] [address] [id number] [place] [address] Dec, [facility] [address] [id number] [place] [address] Dec, [facility] [address] [id number] [place] [address] Dec, [facility] [address] [id number] [place] [address] Dec, [facility] [address] [id number] [place] [address] Dec, [facility] [address] [id number] [place] [address] 08 Dec, 2011 [facility] [address] [id number] [place] [address] 05 Dec, 2011 [facility] [address] [id number] [place] [address] 18 Sep2011 [facility] [address] [id number] [place] [address] 13 Sep2011 [facility] [address] [id number] [place] [address] Oct, [facility] [address] [id number] [place] [address] Oct, [facility] [address] [id number] [place] [address] Oct, [facility] [address] [id number] [place] [address] Oct, [facility] [address] [id number] [place] [address] Oct, [facility] [address] [id number] [place] [address] Oct, [facility] [address] [id number] [place] [address] Oct, [facility] [address] [id number] [place] [address] Sep, [facility] [address] [id number] [place] [address] Aug, [facility] [address] [id number] [place] [address] Aug, [facility] [address] [id number] [place] [address] Aug, [facility] [address] [id number] [place] [address] Aug, [facility] [address] [id number] [place] [address] Aug, [facility] [address] [id number] [place] [address] July, [facility] [address] [id number] [place] [address] July, [facility] [address] [id number] [place] [address] July, [facility] [address] [id number] [place] [address] Jun, [facility] [address] [id number] [place] [address] Jun, [facility] [address] [id number] [place] [address] Jun, [facility] [address] [id number] [place] [address] Jun, [facility] [address] [id number] [place] [address] May, [facility] [address] [id number] [place] [address] May, [facility] [address] [id number] [place] [address] May, [facility] [address] [id number] [place] [address] May, [facility] [address] [id number] [place] [address] May, [facility] [address] [id number] [place] [address] May, [facility] [address] [id number] [place] [address] May, [facility] [address] [id number] [place] [address] May, [facility] [address] [id number] [place] [address] May, [facility] [address] [id number] [place] [address] 05 May, 2011 [facility] [address] [id number] [place] [address] May, [facility] [address] [id number] [place] [address] May, [facility] [address] [id number] [place] [address] Mar, [facility] [address] [id number] [place] [address] Mar, [facility] [address] [id number] [place] [address] 28 Feb, 2011 [facility] [address] [id number] [place] [address] Feb, [facility] [address] [id number] [place] [address] 20 Feb, 2011 [facility] [address] [id number] [place] [address] 15 Feb, 2011 [facility] [address] [id number] [place] [address] Feb, [facility] [address] [id number] [place] [address] Feb, [facility] [address] [id number] [place] [address] Feb, [facility] [address] [id number] [place] [address] 28 Jan, 2011 [facility] [address] [id number] [place] [address] Jan, [facility] [address] [id number] [place] [address] 22 Jan, 2011 [facility] [address] [id number] [place] [address] Jan, [facility] [address] [id number] [place] [address] Jan, [facility] [address] [id number] [place] [address] Jan, [facility] [address] [id number] [place] [address] Dec, [facility] [address] [id number] [place] [address] Dec, [facility] [address] [id number] [place] [address] Dec, [facility] [address] [id number] [place] [address] 17 Jul, 2010 [facility] [address] [id number] [place] [address] July, [facility] [address] [id number] [place] [address] Feb, [facility] [address] [id number] [place] [address] Jan, [facility] [address] [id number] [place] [address] Dec, [facility] [address] [id number] [place] [address] Dec, [facility] [address] [id number] [place] [address] Sep, [facility] [address] [id number] [place] [address] Aug, [facility] [address] [id number] [place] [address] Jun, [facility] [address] [id number] [place] [address] Jun, [facility] [address] [id number] [place] [address] Jan, [facility] [address] [id number] [place] [address] Jan, [facility] [address] [id number] [place] [address] Jan, [facility] [address] [id number] [place] [address] Jan, [facility] [address] [id number] [place] [address] 29 Dec, 2008 [facility] [address] [id number] [place] [address] Dec, [facility] [address] [id number] [place] [address] 15 Dec, 2008 [facility] [address] [id number] [place] [address] Nov, [facility] [address] [id number] [place] [address] July, [facility] [address] [id number] [place] [address] May, [facility] [address] [id number] [place] [address] Apr, [facility] [address] [id number] [place] [address] Feb, [facility] [address] [id number] [place] [address] Dec, IMMUNIZATIONS No Known Immunizations SOCIAL HISTORY [...]
--- OUTSIDE RECORDS SUMMARY | 2019-06-22 19:36 | XMS REPORT ---
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 Active 574857033 Problem Diabetes E11.9 Active 227104964 Problem Type 2 diabetes mellitus with complication E11.8 Active 225136305 Problem Post laminectomy syndrome M96.1 Acti ve 54546511 Problem Bipolar 1 disorder F31.9 Active 3 26667216 Problem New daily persistent headache G44.52 Active 801626534 Problem Type 2 diabetes mellitus with hyperglycemia E11.65 Active 74750387 Problem Other chronic pain G89.29 Active 8 5331257 Problem Essential hypertension I10 Active 71286584 Problem Acute bilateral low back pain with right-sided sciatica M54.41 Active 517313036 Problem Bipolar disorder, in partial remission, most rec ent episode manic F31.73 Active 44394486 Problem Seasonal allergic rhinitis due to pollen J30.1 Active 77782842 Problem Hyperlipidemia, unspecified E78.5 Ac tive 05181272 Problem Eye exam normal Z01.00 Active 2438 39026 Problem Extreme poverty Z59.5 Active 1140 3006 Problem Lumbago with sciatica, left side M54.42 Active 391651580 Problem Hypertriglyceridemia E78.1 Active 876480494 Problem Insulin long-term use Z79.4 Active 115696273 Problem Rhinosinusitis J32.9 Active 47595 000 ALLERGIES No Information ENCOUNTERS Encounter Location Date Diagnosis [place] [address] [address] 08 Aug, 2019 [place] [address] [address] 07 Jun, 2019 [facility] [address] [address] May, [place] [address] [address] May, [place] [address] [address] May, [facility] [address] [facility] [id number] [address] [place] [address] 15 May, 2019 Diarrhea, unspecified type R 19.7 [place] [address] [address] 09 May, 2019 Borderline intellectual functioning R41. 83 [place] [address] [address] 09 May, 2019 Type 2 diabetes mellitus with complicati on E11.8 [place] [address] [address] 09 May, 2019 Bipolar 1 disorder F31.9 ; Type 2 diabet es mellitus with complication E11.8 ; Pain of right thumb M79.644 ; Extreme poverty Z59.5 and Low back pain M54.5 [place] [address] [address] 09 May, 2019 [place] [address] [address] Apr, Bipolar 1 disorder F31.9 ; Borderline in tellectual functioning R41.83 and Extreme poverty Z59.5 [facility] [address] [facility] [id number] [address] [place] [address] Apr, Seasonal allergic rhinitis d ue to pollen J30.1 [place] [address] [address] Apr, Essential hypertension I10 and Diabetes E11.9 [facility] [address] [address] Apr, [place] [address] [address] Mar, Bipolar 1 disorder F31.9 ; Borderline in tellectual functioning R41.83 and Extreme poverty Z59.5 [place] [address] [address] Mar, Exercise counseling Z71.82 [place] [address] [address] Mar, [place] [address] [address] Mar, Bipolar disorder, in partial remission, most recent episode manic F31.73 and 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 [id number] [address] [place] [address] Feb, Acute low back pain without sciatica, unspecified back pain laterality M54.5 [facility] [address] [address] Feb, Bipolar 1 disorder F31.9 ; Borderline in tellectual functioning R41.83 and Extreme poverty Z59.5 [facility] [address] [address] Jan, Bipolar 1 disorder F31.9 ; Borderline in tellectual functioning R41.83 and Extreme poverty Z59.5 [facility] [address] [address] Jan, [facility] [address] [address] Jan, Type 2 diabetes mellitus with complicati on E11.8 [facility] [address] [address] Jan, Type 2 diabetes mellitus with complicati on E11.8 ; Dysuria R30.0 and Diarrhea, unspecified type R19.7 [place] [address] [address] Jan, Bipolar 1 disorder F31.9 ; Borderline in tellectual functioning R41.83 and Extreme poverty Z59.5 [facility] [address] [address] Dec, [facility] [address] [address] Dec, [facility] [address] [address] Dec, [facility] [address] [address] Dec, [facility] [address] [address] Dec, Rhinosinusitis J32.9 [facility] [address] [address] Dec, [facility] [address] [address] Dec, Bipolar 1 disorder F31.9 ; Borderline in tellectual functioning R41.83 and Extreme poverty Z59.5 [place] [address] [address] 10 Dec, 2018 Type 2 diabetes mellitus with complicati on E11.8 and Type 2 diabetes mellitus with hyperglycemia E11.65 [place] [address] [address] Dec, [place] [address] [address] Dec, Type 2 diabetes mellitus with complicati on E11.8 ; Insulin long-term use Z79.4 ; Hyperglycemia R73.9 and Yeast infection B37.9 [place] [address] [address] Dec, Encounter for immunization Z23 [place] [address] [address] Nov, [place] [address] [address] Nov, Bipolar 1 disorder F31.9 ; Borderline in tellectual functioning R41.83 and Extreme poverty Z59.5 [place] [address] [address] Nov, [place] [address] [address] Nov, [place] [address] [address] Nov, Borderline intellectual functioning R41. 83 and Bipolar disorder, in partial remission, most recent episode manic F31.73 [facility] [address] [place] [address] Nov, Epigastric abdominal pain R1 0.13 [place] [address] [address] Nov, Bipolar 1 disorder F31.9 ; Borderline in tellectual functioning R41.83 and Extreme poverty Z59.5 [facility] [address] [place] [id number] [place] [address] Oct, Dysuria R30.0 and Acute cyst itis without hematuria N30.00 [facility] [address] [place] [id number] [address] [place] [address] Oct, [facility] [address] [place] [id number] [place] [address] Oct, [facility] [address] [address] Oct, Bipolar 1 disorder F31.9 ; Borderline in tellectual functioning R41.83 and Extreme poverty Z59.5 [facility] [address] [address] Oct, [facility] [address] [address] Oct, [facility] [address] [address] Oct, Bipolar disorder, in partial remission, most recent episode manic F31.73 and 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 [id number] [address] [address] Sep, Mouth pain K13.79 [facility] [address] [place] [id number] [place] [address] Sep, [facility] [address] [address] Sep, Bipolar 1 disorder F31.9 ; Borderline in tellectual functioning R41.83 and Extreme poverty Z59.5 [place] [address] [address] Sep, [facility] [address] [address] Sep, [facility] [address] [address] Sep, Diabetes E11.9 ; Hyperglycemia R73.9 ; L eliseo term current use of insulin Z79.4 and Diarrhea, unspecified type R19.7 [place] [address] [address] Sep, [place] [address] [address] Sep, Bipolar 1 disorder F31.9 ; Borderline in tellectual functioning R41.83 and Extreme poverty Z59.5 [place] [address] [address] Sep, [place] [address] [address] Sep, [place] [address] [address] Aug, Bipolar 1 disorder F31.9 ; Borderline in tellectual functioning R41.83 and Extreme poverty Z59.5 [place] [address] [address] Aug, Exercise counseling Z71.82 [place] [address] [address] Aug, Bipolar 1 disorder F31.9 ; Borderline in tellectual functioning R41.83 and Extreme poverty Z59.5 [place] [address] [address] Aug, Borderline intellectual functioning R41. 83 and Bipolar disorder, in partial remission, most recent episode manic F31.73 [place] [address] [address] 10 Aug, 2018 Low back pain M54.5 [facility] [address] [address] Aug, Borderline intellectual functioning R41. 83 and Bipolar disorder, in partial remission, most recent episode manic F31.73 [facility] [address] [address] July, Acute superficial gastritis without hemo rrhage K29.00 ; Low back pain M54.5 and Other chronic pain G89.29 [facility] [address] [address] July, [facility] [address] [address] July, [facility] [address] [address] Jun, [facility] [address] [facility] [id number] [address] [address] Jun, Bilateral lower extremity ed epi R60.0 [facility] [address] [address] Jun, Borderline intellectual functioning R41. 83 and Bipolar disorder, in partial remission, most recent episode manic F31.73 [facility] [address] [place] [id number] [place] [address] Jun, [facility] [address] [address] May, Bronchitis J40 [facility] [address] [address] May, Screening for breast cancer Z12.31 and E ncounter for immunization Z23 [facility] [address] [address] May, Bipolar 1 disorder F31.9 ; Borderline in tellectual functioning R41.83 and Extreme poverty Z59.5 [place] [address] [place] [address] [place] [address] 11 Apr, 2018 [facility] [address] [address] 07 Apr, 2018 Bipolar 1 disorder F31.9 ; Borderline in tellectual functioning R41.83 and Extreme poverty Z59.5 [place] [address] [address] 05 Apr, 2018 Irritable bowel syndrome with diarrhea K 58.0 and Dental abscess K04.7 [place] [address] [address] Mar, [place] [address] [address] Mar, [place] [address] [address] Mar, Bipolar 1 disorder F31.9 ; Borderline in tellectual functioning R41.83 and Extreme poverty Z59.5 [place] [address] [address] Mar, Hypertriglyceridemia E78.1 [place] [address] [address] Mar, Borderline intellectual functioning R41. 83 and Bipolar disorder, in partial remission, most recent episode manic F31.73 [place] [address] [address] Mar, Bipolar 1 disorder F31.9 ; Borderline in tellectual functioning R41.83 and Extreme poverty Z59.5 [place] [address] [address] Feb, Generalized abdominal pain R10.84 and Di arrhea, unspecified type R19.7 [place] [address] [address] Feb, [place] [address] [address] Feb, Myalgia M79.10 and Nausea R11.0 [place] [address] [address] Feb, Bipolar 1 disorder F31.9 ; Borderline in tellectual functioning R41.83 and Extreme poverty Z59.5 [place] [address] [address] Feb, [place] [address] [address] Feb, Diabetes E11.9 ; Hyperglycemia R73.9 and Diarrhea, unspecified R19.7 [place] [address] [address] Feb, Diarrhea, unspecified type R19.7 ; Abdom inal pain R10.9 and Encounter for immunization Z23 [place] [address] [address] Jan, Bipolar 1 disorder F31.9 ; Borderline in tellectual functioning R41.83 and Extreme poverty Z59.5 [place] [address] [address] Dec, Bipolar 1 disorder F31.9 ; Borderline in tellectual functioning R41.83 and Extreme poverty Z59.5 [place] [address] [address] Nov, [place] [address] [address] Nov, Hypertriglyceridemia E78.1 [place] [address] [address] Nov, Bipolar 1 disorder F31.9 ; Borderline in tellectual functioning R41.83 and Extreme poverty Z59.5 [place] [address] [address] Nov, Type 2 diabetes mellitus with complicati on E11.8 [place] [address] [address] Nov, Borderline intellectual functioning R41. 83 and Bipolar disorder, in partial remission, most recent episode manic F31.73 [place] [address] [address] 12 Nov, 2017 Type 2 diabetes mellitus with complicati on E11.8 [place] [address] [address] 11 Nov, 2017 Bipolar 1 disorder F31.9 ; Borderline in tellectual functioning R41.83 and Extreme poverty Z59.5 [place] [address] [address] Nov, Type 2 diabetes mellitus with complicati on E11.8 ; Pain of left upper arm M79.622 ; Pain in right upper arm M79.621 ; Hyperglycemia R73.9 ; Lumbago with sciatica, left side M54.42 and Other chronic pain G89.[address] [address] Oct, Bipolar 1 disorder F31.9 ; Borderline in tellectual functioning R41.83 and Extreme poverty Z59.5 [place] [address] [address] Oct, Type 2 diabetes mellitus with hyperglyce didi E11.65 ; 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 Z79.4 and Other acute gastritis without hemorrhage K29.00 [place] [address] [address] Oct, Bipolar 1 disorder F31.9 ; Borderline in tellectual functioning R41.83 and Extreme poverty Z59.5 [place] [address] [address] Sep, Diarrhea, unspecified R19.7 and Vomiting , unspecified R11.10 [place] [address] [address] Aug, Type 2 diabetes mellitus with complicati on E11.8 [place] [address] [address] Aug, [place] [address] [address] Aug, Bipolar 1 disorder F31.9 ; Borderline in tellectual functioning R41.83 and Extreme poverty Z59.5 [place] [address] [address] Aug, Borderline intellectual functioning R41. 83 and Bipolar disorder, in partial remission, most recent episode manic F31.73 [place] [address] [address] Aug, Bipolar 1 disorder F31.9 [place] [address] [address] Aug, [place] [address] [address] Aug, [place] [address] [address] Aug, Bipolar 1 disorder F31.9 ; Borderline in tellectual functioning R41.83 and Extreme poverty Z59.5 [place] [address] [address] July, Type 2 diabetes mellitus with complicati on E11.8 [place] [address] [address] July, Bipolar 1 disorder F31.9 ; Borderline in tellectual functioning R41.83 and Extreme poverty Z59.5 [place] [address] [address] Jun, Bipolar 1 disorder F31.9 ; Borderline in tellectual functioning R41.83 and Extreme poverty Z59.5 [place] [address] [address] Jun, Bipolar 1 disorder F31.9 ; Borderline in tellectual functioning R41.83 and Extreme poverty Z59.5 [place] [address] [address] Jun, Bipolar 1 disorder F31.9 ; Borderline in tellectual functioning R41.83 and Extreme poverty Z59.5 [place] [address] [address] May, Urinary tract infection without hematuri a, site unspecified N39.0 [place] [address] [address] May, Bipolar 1 disorder F31.9 ; Borderline in tellectual functioning R41.83 and Extreme poverty Z59.5 [place] [address] [address] Apr, Diabetes E11.9 and Breast cancer screeni ng Z12.31 [place] [address] [address] Apr, Bipolar 1 disorder F31.9 and 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 [place] [address] [address] Mar, Bipolar 1 disorder F31.9 ; Borderline in tellectual functioning R41.83 and Extreme poverty Z59.5 [place] [address] [address] Mar, New daily persistent headache G44.52 ; L eg pain 729.5 and History of carpal tunnel release Z98.890 [place] [address] [address] Mar, Hyperlipidemia, unspecified E78.5 [place] [address] [address] Mar, Bipolar 1 disorder F31.9 ; Borderline in tellectual functioning R41.83 and Extreme poverty Z59.5 [place] [address] [address] Feb, Bipolar 1 disorder F31.9 ; Borderline in tellectual functioning R41.83 and Extreme poverty Z59.5 [place] [address] [address] Feb, Diabetes E11.9 [place] [address] [address] Feb, Viral syndrome B34.9 [place] [address] [address] Jan, Other viral agents as the cause of disea ses classified elsewhere B97.89 and Acute upper respiratory infection, unspecified J06.9 [place] [address] [address] Jan, Bipolar 1 disorder F31.9 and Borderline intellectual functioning R41.[address] [address] Jan, Bipolar 1 disorder F31.9 ; Borderline in tellectual functioning R41.83 and Extreme poverty Z59.[address] [address] Dec, Diabetes E11.9 [place] [address] [address] Dec, Diabetes E11.9 and Encounter for immuniz ation Z23 [address] [address] Dec, Bipolar 1 disorder F31.9 ; Borderline in tellectual functioning R41.83 and Extreme poverty Z59.5 [place] [address] [address] Dec, Back pain M54.9 [place] [address] [address] Nov, [address] [address] Nov, Bipolar 1 disorder F31.9 ; Borderline in tellectual functioning R41.83 and Extreme poverty Z59.5 [place] [address] [address] Nov, Bipolar 1 disorder F31.9 ; Borderline in tellectual functioning R41.83 and Extreme poverty Z59.5 [place] [address] [address] Oct, Borderline intellectual functioning R41. 83 and Bipolar 1 disorder F31.9 [place] [address] [address] Oct, Bipolar 1 disorder F31.9 ; Borderline in tellectual functioning R41.83 and Extreme poverty Z59.5 [place] [address] [address] Oct, Back pain M54.9 [place] [address] [address] Oct, Borderline intellectual functioning R41. 83 and Type 2 diabetes mellitus with complication E11.8 [place] [address] [address] Sep, Bipolar 1 disorder F31.9 ; Borderline in tellectual functioning R41.83 and Extreme poverty Z59.5 [place] [address] [address] Sep, Borderline intellectual functioning R41. 83 and Bipolar 1 disorder F31.9 [place] [address] [address] Sep, Bipolar 1 disorder F31.9 ; Borderline in tellectual functioning R41.83 and Extreme poverty Z59.5 [place] [address] [address] Aug, Diabetes E11.9 ; Hyperlipidemia, unspeci fied E78.5 and Lumbar radiculopathy M54.16 [place] [address] [address] Aug, Bipolar 1 disorder F31.9 ; Borderline in tellectual functioning R41.83 and Extreme poverty Z59.5 [place] [address] [address] Aug, [place] [address] [place] [id number] [place] [address] Aug, [facility] [address] [place] [id number] [place] [address] Aug, [facility] [address] [place] [id number] [place] [address] July, [facility] [address] [address] July, Acute bilateral low back pain with right -sided sciatica M54.41 [place] [address] [address] July, Bipolar 1 disorder F31.9 ; Borderline in tellectual functioning R41.83 and Extreme poverty Z59.5 [place] [address] [address] July, Back pain M54.9 and Diabetes E11.9 [place] [address] [address] Jun, Bipolar 1 disorder F31.9 ; Borderline in tellectual functioning R41.83 and Extreme poverty Z59.5 [place] [address] [address] Jun, Bipolar 1 disorder F31.9 ; Borderline in tellectual functioning R41.83 and Extreme poverty Z59.5 [place] [address] [place] [id number] [place] [address] May, Visit for pelvic exam Z01.419 ; Acute va ginitis N76.0 and Diabetes E11.9 [facility] [id number] [place] [address] May, Bipolar 1 disorder F31.9 ; Borderline in tellectual functioning R41.83 and Extreme poverty Z59.5 [place] [address] [address] May, [place] [address] [address] May, [place] [address] [address] May, Bipolar 1 disorder F31.9 ; Borderline in tellectual functioning R41.83 and Extreme poverty Z59.5 [place] [address] [address] May, Hyperlipidemia, unspecified E78.5 [place] [address] [address] Apr, Breast cancer screening Z12.39 [place] [address] [address] Mar, [place] [address] [address] Mar, Bipolar disorder, current episode mixed, unspecified F31.60 [place] [address] [address] Mar, Bipolar 1 disorder F31.9 ; Borderline in tellectual functioning R41.83 and Extreme poverty Z59.5 [place] [address] [address] Feb, Acute nasopharyngitis J00 [place] [address] [address] 27 Feb, 2016 Dental examination Z01.20 [place] [address] [address] Feb, Dental cavities K02.9 and Chronic period ontitis, unspecified K05.30 [place] [address] [address] Feb, Low back pain M54.5 and Extreme poverty Z59.5 [place] [address] [address] 08 Feb, 2016 [place] [address] [address] 05 Feb, 2016 Routine gynecological examination V72.31 ; Breast cancer screening Z12.39 and Herpes simplex type 1 infection B00.9 [place] [address] [address] Feb, Diabetes E11.9 [place] [address] [place] [address] Feb, Encounter for dental examination and leti aning without abnormal findings Z01.20 [place] [address] [address] Jan, Hyperlipidemia, unspecified E78.5 [place] [address] [address] Jan, Bipolar 1 disorder F31.9 ; Borderline in tellectual functioning R41.83 and Extreme poverty Z59.5 [place] [address] [address] 18 Jan, 2016 Diabetes E11.9 [place] [address] [address] 17 Jan, 2016 Diabetes E11.9 [place] [address] [address] 14 Dec, 2015 Bipolar 1 disorder F31.9 ; Borderline in tellectual functioning R41.83 and Extreme poverty Z59.5 [place] [address] [address] 13 Dec, 2015 Bipolar disorder, current episode mixed, unspecified F31.60 and 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 [place] [address] [address] 16 Nov, 2015 Bipolar 1 disorder F31.9 ; Borderline in tellectual functioning R41.83 ; Extreme poverty Z59.5 and Non compliance with medical treatment Z91.19 [place] [address] [address] Oct, [place] [address] [address] Oct, Dental caries K02.9 [place] [address] [address] Oct, Low back pain M54.5 and Other chronic pa in G89.29 [place] [address] [address] Oct, Bipolar 1 disorder F31.9 ; Borderline in tellectual functioning R41.83 ; Extreme poverty Z59.5 and Non compliance with medical treatment Z91.19 [place] [address] [address] Oct, [place] [address] [address] Oct, [place] [address] [address] Oct, Dental examination Z01.20 [place] [address] [address] Oct, Bipolar 1 disorder F31.9 ; Borderline in tellectual functioning R41.83 ; Extreme poverty Z59.5 and Non compliance with medical treatment Z91.19 [place] [address] [address] Oct, [place] [address] [address] Sep, Type 2 diabetes mellitus with complicati on E11.8 [place] [address] [address] Sep, Bipolar disorder, current episode mixed, unspecified F31.60 [place] [address] [address] Sep, Bipolar disorder, current episode mixed, unspecified F31.60 [place] [address] [address] Sep, Bipolar disorder, in partial remission, most recent episode manic F31.73 ; 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 ; Extreme poverty Z59.5 and Non compliance with medical treatment Z91.19 [place] [address] [address] 15 Aug, 2015 Bipolar disorder, in partial remission, most recent episode manic F31.73 ; 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 ; Extreme poverty Z59.5 and Non compliance with medical treatment Z91.19 [place] [address] [address] Aug, Bipolar disorder, in partial remission, most recent episode manic F31.73 ; 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 ; Extreme poverty Z59.5 and Non compliance with medical treatment Z91.19 [place] [address] [address] Aug, [place] [address] [address] July, Bipolar disorder, in partial remission, most recent episode manic F31.73 ; 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 ; Extreme poverty Z59.5 and Non compliance with medical treatment Z91.19 [place] [address] [address] July, Bipolar disorder, current episode mixed, unspecified F31.60 [place] [address] [address] July, Bipolar disorder, in partial remission, most recent episode manic F31.73 ; 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 ; Extreme poverty Z59.5 and Non compliance with medical treatment Z91.19 [place] [address] [address] July, senior care current use of opiate analgesi c Z79.891 and Chronic pain G89.29 [place] [address] [address] Jun, 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 and Bipolar 1 disorder F31.9 [place] [address] [address] Jun, [place] [address] [address] Jun, [place] [address] [address] Jun, [place] [address] [address] Jun, Bipolar disorder, in partial remission, most recent episode manic F31.73 ; 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 and Non compliance with medical treatment Z91.19 [place] [address] [address] May, Bipolar disorder, in partial remission, most recent episode manic F31.73 ; 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 and Non compliance with medical treatment Z91.19 [place] [address] [address] May, Bipolar disorder, in partial remission, most recent episode manic F31.73 [place] [address] [address] May, Diabetes E11.9 and Chronic pain G89.29 [place] [address] [address] May, [place] [address] [address] May, Bipolar disorder, in partial remission, most recent episode manic F31.73 ; Non compliance with medical treatment Z91.19 and 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 [place] [address] [address] May, Type 2 diabetes mellitus with complicati on E11.8 and Back pain M54.[address] [address] May, Bipolar disorder, in partial remission, most recent episode manic F31.73 and 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 [place] [address] [address] Apr, [place] [address] [address] 18 Apr, 2015 [place] [address] [address] Apr, [place] [address] [address] 09 Apr, 2015 Diabetes E11.9 ; Irritable bowel syndrom e with diarrhea K58.0 and Lumbar radiculopathy M54.16 [place] [address] [address] 02 Apr, 2015 Breast screening Z12.39 [place] [address] [address] Apr, Bipolar disorder, in partial remission, most recent episode manic F31.73 ; Non compliance with medical treatment Z91.19 and 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 [place] [address] [address] Mar, Edema, unspecified type R60.9 and Type 2 diabetes mellitus with complication E11.8 [place] [address] [address] Mar, Bipolar disorder, in partial remission, most recent episode manic F31.73 ; Non compliance with medical treatment Z91.19 ; 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 and Extreme poverty Z59.5 [place] [address] [address] Mar, Bipolar disorder, current episode mixed, unspecified F31.60 ; 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 ; Extreme poverty Z59.5 and Generalized anxiety disorder F41.1 [place] [address] [address] Mar, Bipolar disorder, in partial remission, most recent episode manic F31.73 ; 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 and Extreme poverty Z59.5 [place] [address] [address] Feb, Bipolar disorder, in partial remission, most recent episode manic F31.73 ; 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 and Extreme poverty Z59.5 [place] [address] [address] Feb, Bipolar disorder, in partial remission, most recent episode manic F31.73 ; 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 and Extreme poverty Z59.5 [place] [address] [address] Feb, [place] [address] [address] Jan, Type 2 diabetes mellitus with complicati on E11.8 and Petechiae R23.3 [place] [address] [address] Jan, Type 2 diabetes mellitus with complicati on E11.8 ; Edema, unspecified R60.9 ; Petechiae R23.3 and Diabetes E11.9 [place] [address] [address] Jan, Bipolar disorder, in partial remission, most recent episode manic F31.73 ; 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 and Extreme poverty Z59.5 [place] [address] [address] Jan, Bipolar disorder, in partial remission, most recent episode manic F31.73 ; 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 and Extreme poverty Z59.5 [place] [address] [address] Dec, Bipolar disorder, in partial remission, most recent episode manic F31.73 [place] [address] [address] Dec, Edema, due to unspecified malnutrition t ype, unspecified edema R60.9 and Essential hypertension I10 [place] [address] [address] Dec, Bipolar disorder, in partial remission, most recent episode manic F31.73 [place] [address] [address] Nov, Bipolar I disorder, most recent episode (or current) mixed, unspecified 296.60 [facility] [address] [address] Nov, Stress incontinence, female 625.6 ; Back pain 724.5 and Leg pain 729.5 [facility] [address] [address] Nov, Generalized anxiety disorder 300.02 and Bipolar II disorder 296.89 [facility] [address] [address] Nov, Bipolar I disorder, most recent episode (or current) mixed, unspecified 296.60 [facility] [address] [address] Oct, [facility] [address] [address] Oct, [facility] [address] [address] Oct, [facility] [address] [address] Oct, Bipolar I disorder, most recent episode (or current) mixed, unspecified 296.60 [facility] [address] [address] Sep, Diabetes 250.00 [facility] [address] [address] Sep, Bipolar I disorder, most recent episode (or current) mixed, unspecified 296.60 [facility] [address] [address] Sep, [facility] [address] [address] Sep, [facility] [address] [address] Sep, Bipolar I disorder, most recent episode (or current) mixed, unspecified 296.60 [facility] [address] [address] Sep, Bipolar I disorder, most recent episode (or current) mixed, unspecified 296.60 [facility] [address] [address] Sep, [facility] [address] [address] Sep, Anxiety 300.00 ; Diabetes 250.00 and Hyp erlipidemia 272.4 [facility] [address] [address] Aug, [facility] [address] [address] Aug, [facility] [address] [address] Aug, [facility] [address] [address] Aug, Bipolar I disorder, most recent episode (or current) mixed, unspecified 296.60 [facility] [address] [address] Aug, Generalized anxiety disorder 300.02 and Bipolar II disorder 296.89 [facility] [address] [address] July, Bipolar I disorder, most recent episode (or current) mixed, unspecified 296.60 [facility] [address] [address] July, Cough 786.2 [facility] [address] [address] July, Bipolar I disorder, most recent episode (or current) mixed, unspecified 296.60 [facility] [address] [address] Jun, Diabetes 250.00 [facility] [address] [address] Jun, [facility] [address] [id number] [place] [address] 13 Jun, 2014 [facility] [address] [id number] [place] [address] 24 May, 2014 [facility] [address] [id number] [place] [address] 24 May, 2014 [facility] [address] [id number] [place] [address] May, [facility] [address] [id number] [place] [address] May, [facility] [address] [id number] [place] [address] May, [facility] [address] [id number] [place] [address] May, [facility] [address] [id number] [place] [address] Apr, [facility] [address] [id number] [place] [address] Apr, [facility] [address] [id number] [place] [address] Apr, [facility] [address] [id number] [place] [address] Apr, [facility] [address] [id number] [place] [address] Apr, [facility] [address] [id number] [place] [address] 10 Apr, 2014 [facility] [address] [id number] [place] [address] Apr, [facility] [address] [id number] [place] [address] 05 Apr, 2014 [facility] [address] [id number] [place] [address] Mar, [facility] [address] [id number] [place] [address] Mar, [facility] [address] [facility] [id number] [place] [address] Mar, [facility] [address] [id number] [place] [address] Mar, [facility] [address] [id number] [place] [address] Mar, [facility] [address] [id number] [place] [address] Mar, [facility] [address] [id number] [place] [address] Mar, [facility] [address] [id number] [place] [address] Mar, [facility] [address] [id number] [place] [address] Feb, [facility] [address] [id number] [place] [address] Feb, [facility] [address] [id number] [place] [address] Feb, [facility] [address] [id number] [place] [address] Feb, [facility] [address] [id number] [place] [address] Feb, [facility] [address] [id number] [place] [address] Feb, [facility] [address] [id number] [place] [address] Feb, [facility] [address] [id number] [place] [address] Feb, [facility] [address] [id number] [place] [address] Feb, [facility] [address] [id number] [place] [address] Feb, [facility] [address] [id number] [place] [address] Jan, [facility] [address] [id number] [place] [address] Jan, [facility] [address] [id number] [place] [address] Jan, [facility] [address] [id number] [place] [address] Jan, [facility] [address] [id number] [place] [address] Jan, [facility] [address] [id number] [place] [address] Jan, [facility] [address] [id number] [place] [address] Jan, [facility] [address] [place] [id number] [place] [address] Jan, [facility] [address] [id number] [place] [address] Jan, [facility] [address] [id number] [place] [address] Jan, [facility] [address] [id number] [place] [address] Jan, [facility] [address] [id number] [place] [address] Jan, [facility] [address] [id number] [place] [address] Jan, [facility] [address] [id number] [place] [address] Jan, [facility] [address] [place] [id number] [place] [address] Jan, [facility] [address] [id number] [place] [address] Dec, [facility] [address] [id number] [place] [address] Dec, 2013 [facility] [address] [facility] [id number] [place] [address] Dec, 2013 [facility] [address] [facility] [id number] [place] [address] Dec, 2013 [facility] [address] [id number] [place] [address] 09 Dec, 2013 [facility] [address] [id number] [place] [address] Dec, 2013 [facility] [address] [facility] [id number] [place] [address] Dec, 2013 [facility] [address] [id number] [place] [address] Dec, 2013 [facility] [address] [id number] [place] [address] 25 Sep, 2013 [facility] [address] [id number] [place] [address] 25 Sep, 2013 [facility] [address] [id number] [place] [address] 10 Sep, 2013 [facility] [address] [id number] [place] [address] 10 Sep, 2013 [facility] [address] [id number] [place] [address] 08 Sep, 2013 [facility] [address] [id number] [place] [address] 08 Sep, 2013 [facility] [address] [id number] [place] [address] 08 Sep, 2013 [facility] [address] [id number] [place] [address] 08 Sep, 2013 [facility] [address] [id number] [place] [address] 08 Sep, 2013 [facility] [address] [id number] [place] [address] 08 Sep, 2013 [facility] [address] [id number] [facility] [address] 04 Nov, 2013 [facility] [address] [id number] [facility] [address] Nov, 2013 [facility] [address] [facility] [id number] [place] [address] Nov, [facility] [address] [id number] [place] [address] Nov, [facility] [address] [id number] [place] [address] Nov, [facility] [address] [id number] [place] [address] Oct, [facility] [address] [id number] [place] [address] Oct, [facility] [address] [id number] [place] [address] Oct, [facility] [address] [id number] [place] [address] Oct, [facility] [address] [id number] [place] [address] Oct, [facility] [address] [id number] [place] [address] Oct, [facility] [address] [id number] [place] [address] Oct, [facility] [address] [id number] [place] [address] Oct, [facility] [address] [id number] [place] [address] Oct, [facility] [address] [id number] [place] [address] Oct, [facility] [address] [id number] [place] [address] Oct, [facility] [address] [id number] [place] [address] Oct, [facility] [address] [facility] [id number] [place] [address] Oct, [facility] [address] [facility] [id number] [place] [address] Oct, [facility] [address] [id number] [place] [address] Sep, [facility] [address] [id number] [place] [address] Sep, 2013 [facility] [address] [facility] [id number] [place] [address] Sep, [facility] [address] [id number] [place] [address] Sep, [facility] [address] [id number] [place] [address] Sep, [facility] [address] [id number] [place] [address] Sep, [facility] [address] [id number] [place] [address] Sep, [facility] [address] [id number] [place] [address] Sep, [facility] [address] [id number] [place] [address] Aug, [facility] [address] [id number] [place] [address] Aug, [facility] [address] [id number] [place] [address] Aug, [facility] [address] [facility] [id number] [place] [address] Aug, [facility] [address] [id number] [place] [address] Aug, [facility] [address] [id number] [place] [address] Aug, [facility] [address] [id number] [place] [address] Aug, [facility] [address] [facility] [id number] [place] [address] Aug, [facility] [address] [facility] [id number] [facility] [address] July, [facility] [address] [id number] [place] [address] July, [facility] [address] [id number] [facility] [place] [address] July, [facility] [address] [facility] [id number] [place] [address] July, [facility] [address] [id number] [place] [address] July, [facility] [address] [id number] [place] [address] July, [facility] [address] [id number] [place] [address] July, [facility] [address] [facility] [id number] [place] [address] July, [facility] [address] [id number] [place] [address] Jun, [facility] [address] [id number] [place] [address] Jun, [facility] [address] [id number] [place] [address] Jun, [facility] [address] [facility] [id number] [place] [address] Jun, [facility] [address] [facility] [id number] [place] [address] Jun, [facility] [address] [id number] [place] [address] Jun, [facility] [address] [id number] [place] [address] Jun, [facility] [address] [id number] [facility] [address] 15 Jun, 2013 [facility] [address] [id number] [facility] [address] Jun, [facility] [address] [facility] [id number] [place] [address] Jun, [facility] [address] [id number] [place] [address] Jun, [facility] [address] [facility] [id number] [place] [address] Jun, [facility] [address] [facility] [id number] [place] [address] May, [facility] [address] [id number] [place] [address] May, [facility] [address] [id number] [place] [address] May, [facility] [address] [id number] [place] [address] May, [facility] [address] [id number] [place] [address] May, [facility] [address] [id number] [place] [address] May, [facility] [address] [id number] [place] [address] May, [facility] [address] [id number] [place] [address] May, [facility] [address] [facility] [id number] [place] [address] May, [facility] [address] [id number] [place] [address] May, [facility] [address] [id number] [place] [address] May, [facility] [address] [id number] [place] [address] May, [facility] [address] [id number] [place] [address] May, [facility] [address] [id number] [place] [address] May, [facility] [address] [id number] [place] [address] Apr, [facility] [address] [id number] [place] [address] Apr, [facility] [address] [id number] [place] [address] Apr, [facility] [address] [id number] [place] [address] Apr, [facility] [address] [id number] [place] [address] Apr, [facility] [address] [id number] [place] [address] Apr, [facility] [address] [id number] [place] [address] Mar, [facility] [address] [id number] [place] [address] Mar, [facility] [address] [id number] [place] [address] Mar, [facility] [address] [id number] [place] [address] Mar, [facility] [address] [id number] [place] [address] Mar, [facility] [address] [id number] [place] [address] Mar, [facility] [address] [id number] [place] [address] Mar, [facility] [address] [id number] [place] [address] Mar, [facility] [address] [id number] [place] [address] Mar, [facility] [address] [id number] [place] [address] Mar, [facility] [address] [id number] [place] [address] Mar, [facility] [address] [id number] [place] [address] Mar, [facility] [address] [id number] [place] [address] Mar, [facility] [address] [id number] [place] [address] Mar, [facility] [address] [id number] [place] [address] Feb, [facility] [address] [id number] [place] [address] Feb, [facility] [address] [id number] [place] [address] Feb, [facility] [address] [id number] [place] [address] Feb, [facility] [address] [id number] [place] [address] Feb, [facility] [address] [id number] [place] [address] Feb, [facility] [address] [id number] [place] [address] Feb, [facility] [address] [id number] [place] [address] Feb, [facility] [address] [id number] [place] [address] Feb, [facility] [address] [id number] [place] [address] Feb, [facility] [address] [id number] [place] [address] Feb, [facility] [address] [id number] [place] [address] 09 Feb, 2012 [facility] [address] [id number] [place] [address] 05 Feb, 2012 [facility] [address] [id number] [place] [address] 05 Feb, 2012 [facility] [address] [id number] [place] [address] 05 Feb, 2012 [facility] [address] [id number] [place] [address] 05 Feb, 2012 [facility] [address] [id number] [place] [address] 24 Dec, 2012 [facility] [address] [id number] [place] [address] 24 Dec, 2012 [facility] [address] [id number] [place] [address] 16 Dec, 2012 [facility] [address] [id number] [place] [address] 16 Dec, 2012 [facility] [address] [id number] [place] [address] 16 Dec, 2012 [facility] [address] [id number] [place] [address] 16 Dec, 2012 [facility] [address] [id number] [place] [address] 14 Dec, 2012 [facility] [address] [id number] [place] [address] 14 Dec, 2012 [facility] [address] [id number] [place] [address] 10 Dec, 2012 [facility] [address] [id number] [place] [address] 10 Dec, 2012 [facility] [address] [id number] [place] [address] 10 Dec, 2012 [facility] [address] [id number] [place] [address] Dec, [facility] [address] [facility] [id number] [place] [address] Dec, [facility] [address] [id number] [place] [address] 25 Nov, 2012 [facility] [address] [id number] [place] [address] 20 Nov, 2012 [facility] [address] [id number] [place] [address] 18 Nov, 2012 [facility] [address] [facility] [id number] [place] [address] 16 Nov, 2012 [facility] [address] [id number] [place] [address] 12 Nov, 2012 [facility] [address] [id number] [place] [address] 11 Nov, 2012 [facility] [address] [id number] [place] [address] 05 Nov, 2012 [facility] [address] [id number] [place] [address] Oct, [facility] [address] [id number] [place] [address] Oct, [facility] [address] [id number] [place] [address] Sep, [facility] [address] [id number] [place] [address] Sep, [facility] [address] [id number] [place] [address] Sep, [facility] [address] [id number] [place] [address] Sep, [facility] [address] [id number] [place] [address] 15 Sep, 2012 [facility] [address] [id number] [place] [address] Sep, [facility] [address] [id number] [place] [address] 08 Sep, 2012 [facility] [address] [facility] [id number] [place] [address] 25 Aug, 2012 [facility] [address] [facility] [id number] [place] [address] 18 Aug, 2012 [facility] [address] [id number] [place] [address] 16 Aug, 2012 [facility] [address] [id number] [place] [address] Aug, [facility] [address] [facility] [id number] [place] [address] Aug, [facility] [address] [id number] [place] [address] Aug, [facility] [address] [id number] [place] [address] Aug, [facility] [address] [id number] [place] [address] Aug, [facility] [address] [id number] [place] [address] July, [facility] [address] [id number] [place] [address] July, [facility] [address] [id number] [place] [address] July, [facility] [address] [facility] [id number] [place] [id number] July, [facility] [address] [facility] [id number] [place] [address] July, [facility] [address] [id number] [place] [address] Jun, [facility] [address] [id number] [place] [address] May, [facility] [address] [id number] [place] [address] 14 May, 2012 [facility] [address] [id number] [place] [address] May, [facility] [address] [id number] [place] [address] Apr, [facility] [address] [id number] [place] [address] Apr, [facility] [address] [id number] [place] [address] Apr, [facility] [address] [id number] [place] [address] Mar, [facility] [address] [id number] [place] [address] Mar, [facility] [address] [id number] [place] [address] Mar, [facility] [address] [id number] [place] [address] Mar, [facility] [address] [id number] [place] [address] Mar, [facility] [address] [id number] [place] [address] Mar, [facility] [address] [id number] [place] [address] Mar, [facility] [address] [id number] [place] [address] Feb, [facility] [address] [id number] [place] [address] 31 Feb, 2012 [facility] [address] [id number] [place] [address] 18 Feb, 2012 [facility] [id number] [place] [address] 18 Feb, 2012 [facility] [address] [id number] [place] [address] Feb, [facility] [address] [id number] [place] [address] Feb, [facility] [address] [id number] [place] [address] Feb, [facility] [address] [id number] [place] [address] Feb, [facility] [address] [id number] [place] [address] Jan, [facility] [address] [id number] [place] [address] Jan, [facility] [address] [id number] [place] [address] Jan, [facility] [address] [id number] [place] [address] Jan, [facility] [address] [id number] [place] [address] Jan, [facility] [address] [id number] [place] [address] Jan, [facility] [address] [id number] [place] [address] Jan, [facility] [address] [id number] [place] [address] Jan, [facility] [address] [id number] [place] [address] Jan, [facility] [address] [id number] [place] [address] Jan, [facility] [address] [id number] [place] [address] Jan, [facility] [address] [id number] [place] [address] Jan, [facility] [address] [id number] [place] [address] Jan, [facility] [address] [id number] [place] [address] Jan, [facility] [address] [id number] [place] [address] Jan, [facility] [address] [facility] [id number] [place] [address] Jan, [facility] [address] [facility] [id number] [place] [address] Dec, [facility] [address] [id number] [place] [address] Dec, [facility] [address] [id number] [place] [address] Dec, [facility] [address] [facility] [id number] [place] [address] Dec, [facility] [address] [id number] [place] [address] Dec, [facility] [address] [id number] [place] [address] Dec, [facility] [address] [id number] [place] [address] Dec, [facility] [address] [id number] [place] [address] Dec, [facility] [address] [id number] [place] [address] Dec, [facility] [address] [id number] [place] [address] Dec, [facility] [address] [id number] [place] [address] 18 Nov, 2011 [facility] [address] [facility] [id number] [place] [address] 13 Nov, 2011 [facility] [address] [id number] [place] [address] 24 Oct, 2011 [facility] [address] [id number] [place] [address] Oct, [facility] [address] [id number] [place] [address] Oct, [facility] [address] [id number] [place] [address] 16 Oct, 2011 [facility] [address] [id number] [place] [address] Oct, [facility] [address] [id number] [place] [address] Oct, [facility] [address] [id number] [place] [address] Oct, [facility] [address] [id number] [place] [address] Sep, [facility] [address] [id number] [place] [address] Aug, [facility] [address] [id number] [place] [address] Aug, [facility] [address] [id number] [place] [address] Aug, [facility] [address] [id number] [place] [address] Aug, [facility] [address] [id number] [place] [address] Aug, [facility] [address] [id number] [place] [address] July, [facility] [address] [id number] [place] [address] July, [facility] [address] [id number] [place] [address] July, [facility] [address] [id number] [place] [address] Jun, [facility] [address] [id number] [place] [address] Jun, [facility] [address] [id number] [place] [address] Jun, [facility] [address] [id number] [place] [address] Jun, [facility] [address] [id number] [place] [address] 30 May, 2011 [facility] [address] [id number] [place] [address] 30 May, 2011 [facility] [address] [id number] [place] [address] 29 May, 2011 [facility] [address] [id number] [place] [address] 28 May, 2011 [facility] [address] [id number] [place] [address] 23 May, 2011 [facility] [address] [id number] [place] [address] 22 May, 2011 [facility] [address] [id number] [place] [address] May, [facility] [address] [id number] [place] [address] May, [facility] [address] [id number] [place] [address] 08 May, 2011 [facility] [address] [id number] [place] [address] 05 May, 2011 [facility] [address] [id number] [place] [address] May, [facility] [address] [id number] [place] [address] May, [facility] [address] [id number] [place] [address] Mar, [facility] [address] [id number] [place] [address] Mar, [facility] [address] [id number] [place] [address] Feb, [facility] [address] [id number] [place] [address] Feb, [facility] [address] [id number] [place] [address] 20 Feb, 2011 [facility] [address] [id number] [place] [address] 15 Feb, 2011 [facility] [address] [id number] [place] [address] Feb, [facility] [address] [id number] [place] [address] Feb, [facility] [address] [id number] [place] [address] Feb, [facility] [address] [id number] [place] [address] Jan, [facility] [address] [id number] [place] [address] Jan, [facility] [address] [id number] [place] [address] Jan, [facility] [address] [id number] [place] [address] Jan, [facility] [address] [id number] [place] [address] Jan, [facility] [address] [id number] [place] [address] Jan, [facility] [address] [id number] [place] [address] Dec, [facility] [address] [id number] [place] [address] Dec, [facility] [address] [id number] [place] [address] Dec, [facility] [address] [id number] [place] [address] July, [facility] [address] [id number] [place] [address] July, [facility] [address] [id number] [place] [address] 08 Feb, 2010 [facility] [address] [id number] [place] [address] 18 Jan, 2010 [facility] [address] [id number] [place] [address] 25 Dec, 2009 [facility] [address] [id number] [place] [address] Dec, [facility] [address] [id number] [place] [address] 15 Sep, 2009 [facility] [address] [id number] [place] [address] Aug, [facility] [address] [id number] [place] [address] Jun, [facility] [address] [id number] [place] [address] Jun, [facility] [address] [id number] [place] [address] Jan, [facility] [address] [id number] [place] [address] Jan, [facility] [address] [id number] [place] [address] Jan, [facility] [address] [id number] [place] [address] Jan, [facility] [address] [id number] [place] [address] Dec, [facility] [address] [id number] [place] [address] Dec, [facility] [address] [id number] [place] [address] 15 Dec, 2008 [facility] [address] [id number] [place] [address] Nov, [facility] [address] [id number] [place] [address] July, [facility] [address] [id number] [place] [address] May, [facility] [address] [facility] [id number] [place] [address] Apr, [facility] [address] [id number] [place] [address] Feb, [facility] [address] [facility] [id number] [place] [address] Dec, IMMUNIZATIONS No Known Immunizations SOCIAL HISTORY [...]
--- OUTSIDE RECORDS SUMMARY | 2019-06-22 19:36 | XMS REPORT ---
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 Active 718736679 Problem Diabetes E11.9 Active 410740149 Problem Type 2 diabetes mellitus with complication E11.8 Active 881641929 Problem Post laminectomy syndrome M96.1 Acti ve 23879336 Problem Bipolar 1 disorder F31.9 Active 3 14379869 Problem New daily persistent headache G44.52 Active 609578647 Problem Type 2 diabetes mellitus with hyperglycemia E11.65 Active 30910745 Problem Other chronic pain G89.29 Active 8 9184465 Problem Essential hypertension I10 Active 31426127 Problem Acute bilateral low back pain with right-sided sciatica M54.41 Active 628240851 Problem Bipolar disorder, in partial remission, most rec ent episode manic F31.73 Active 74580502 Problem Seasonal allergic rhinitis due to pollen J30.1 Active 05970909 Problem Hyperlipidemia, unspecified E78.5 Ac tive 64790613 Problem Eye exam normal Z01.00 Active 2438 94620 Problem Extreme poverty Z59.5 Active 1140 3006 Problem Lumbago with sciatica, left side M54.42 Active 703876614 Problem Hypertriglyceridemia E78.1 Active 917251394 Problem Insulin long-term use Z79.4 Active 550141352 Problem Rhinosinusitis J32.9 Active 57027 000 ALLERGIES No Information ENCOUNTERS Encounter Location Date Diagnosis [place] [address] [address] 08 Aug, 2019 [place] [address] [address] 07 Jun, 2019 [facility] [address] [address] May, [place] [address] [address] May, [place] [address] [address] May, [facility] [address] [facility] [id number] [address] [place] [address] 15 May, 2019 Diarrhea, unspecified type R 19.7 [place] [address] [address] 09 May, 2019 Borderline intellectual functioning R41. 83 [place] [address] [address] 09 May, 2019 Type 2 diabetes mellitus with complicati on E11.8 [place] [address] [address] 09 May, 2019 Bipolar 1 disorder F31.9 ; Type 2 diabet es mellitus with complication E11.8 ; Pain of right thumb M79.644 ; Extreme poverty Z59.5 and Low back pain M54.5 [place] [address] [address] 09 May, 2019 [place] [address] [address] Apr, Bipolar 1 disorder F31.9 ; Borderline in tellectual functioning R41.83 and Extreme poverty Z59.5 [facility] [address] [facility] [id number] [address] [place] [address] Apr, Seasonal allergic rhinitis d ue to pollen J30.1 [place] [address] [address] Apr, Essential hypertension I10 and Diabetes E11.9 [facility] [address] [address] Apr, [place] [address] [address] Mar, Bipolar 1 disorder F31.9 ; Borderline in tellectual functioning R41.83 and Extreme poverty Z59.5 [place] [address] [address] Mar, Exercise counseling Z71.82 [place] [address] [address] Mar, [place] [address] [address] Mar, Bipolar disorder, in partial remission, most recent episode manic F31.73 and 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 [place] [address] [address] Mar, [place] [address] [address] Mar, Exercise counseling Z71.82 [place] [address] [address] Feb, Bipolar 1 disorder F31.9 ; Borderline in tellectual functioning R41.83 and Extreme poverty Z59.5 [place] [address] [address] Feb, [facility] [address] [address] Feb, Type 2 diabetes mellitus with complicati on E11.8 [facility] [address] [facility] [id number] [address] [place] [address] Feb, Acute low back pain without sciatica, unspecified back pain laterality M54.5 [facility] [address] [address] Feb, Bipolar 1 disorder F31.9 ; Borderline in tellectual functioning R41.83 and Extreme poverty Z59.5 [facility] [address] [address] Jan, Bipolar 1 disorder F31.9 ; Borderline in tellectual functioning R41.83 and Extreme poverty Z59.5 [facility] [address] [address] Jan, [facility] [address] [address] Jan, Type 2 diabetes mellitus with complicati on E11.8 [facility] [address] [address] Jan, Type 2 diabetes mellitus with complicati on E11.8 ; Dysuria R30.0 and Diarrhea, unspecified type R19.7 [place] [address] [address] Jan, Bipolar 1 disorder F31.9 ; Borderline in tellectual functioning R41.83 and Extreme poverty Z59.5 [facility] [address] [address] Dec, [facility] [address] [address] Dec, [facility] [address] [address] Dec, [facility] [address] [address] Dec, [facility] [address] [address] Dec, Rhinosinusitis J32.9 [facility] [address] [address] Dec, [facility] [address] [address] Dec, Bipolar 1 disorder F31.9 ; Borderline in tellectual functioning R41.83 and Extreme poverty Z59.5 [place] [address] [address] 10 Dec, 2018 Type 2 diabetes mellitus with complicati on E11.8 and Type 2 diabetes mellitus with hyperglycemia E11.65 [place] [address] [address] Dec, [place] [address] [address] Dec, Type 2 diabetes mellitus with complicati on E11.8 ; Insulin long-term use Z79.4 ; Hyperglycemia R73.9 and Yeast infection B37.9 [place] [address] [address] Dec, Encounter for immunization Z23 [place] [address] [address] Nov, [place] [address] [address] Nov, Bipolar 1 disorder F31.9 ; Borderline in tellectual functioning R41.83 and Extreme poverty Z59.5 [place] [address] [address] Nov, [place] [address] [address] Nov, [place] [address] [address] Nov, Borderline intellectual functioning R41. 83 and Bipolar disorder, in partial remission, most recent episode manic F31.73 [facility] [address] [place] [address] Nov, Epigastric abdominal pain R1 0.13 [place] [address] [address] Nov, Bipolar 1 disorder F31.9 ; Borderline in tellectual functioning R41.83 and Extreme poverty Z59.5 [facility] [address] [place] [id number] [address] [place] [address] Oct, Dysuria R30.0 and Acute cyst itis without hematuria N30.00 [facility] [address] [place] [id number] [address] [place] [address] Oct, [facility] [address] [place] [id number] [place] [address] Oct, [facility] [address] [address] Oct, Bipolar 1 disorder F31.9 ; Borderline in tellectual functioning R41.83 and Extreme poverty Z59.5 [facility] [address] [address] Oct, [facility] [address] [address] Oct, [facility] [address] [address] Oct, Bipolar disorder, in partial remission, most recent episode manic F31.73 and 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 [facility] [address] [address] Oct, Bipolar 1 disorder F31.9 ; Borderline in tellectual functioning R41.83 and Extreme poverty Z59.5 [facility] [address] [place] [id number] [place] [address] Oct, Diarrhea, unspecified type R19.7 [facility] [address] [id number] [place] [id number] Sep, Dental examination Z01.20 and Dental car ies K02.9 [facility] [address] [facility] [id number] [address] [address] Sep, Mouth pain K13.79 [facility] [address] [place] [address] [place] [address] Sep, [facility] [address] [address] Sep, Bipolar 1 disorder F31.9 ; Borderline in tellectual functioning R41.83 and Extreme poverty Z59.5 [place] [address] [address] Sep, [facility] [address] [address] Sep, [facility] [address] [address] Sep, Diabetes E11.9 ; Hyperglycemia R73.9 ; L eliseo term current use of insulin Z79.4 and Diarrhea, unspecified type R19.7 [place] [address] [address] Sep, [place] [address] [address] Sep, Bipolar 1 disorder F31.9 ; Borderline in tellectual functioning R41.83 and Extreme poverty Z59.5 [place] [address] [address] Sep, [place] [address] [address] Sep, [place] [address] [address] Aug, Bipolar 1 disorder F31.9 ; Borderline in tellectual functioning R41.83 and Extreme poverty Z59.5 [place] [address] [address] Aug, Exercise counseling Z71.82 [place] [address] [address] Aug, Bipolar 1 disorder F31.9 ; Borderline in tellectual functioning R41.83 and Extreme poverty Z59.5 [place] [address] [address] Aug, Borderline intellectual functioning R41. 83 and Bipolar disorder, in partial remission, most recent episode manic F31.73 [place] [address] [address] 10 Aug, 2018 Low back pain M54.5 [facility] [address] [address] Aug, Borderline intellectual functioning R41. 83 and Bipolar disorder, in partial remission, most recent episode manic F31.73 [facility] [address] [address] July, Acute superficial gastritis without hemo rrhage K29.00 ; Low back pain M54.5 and Other chronic pain G89.29 [facility] [address] [address] July, [facility] [address] [address] July, [facility] [address] [address] Jun, [facility] [address] [facility] [id number] [address] [address] Jun, Bilateral lower extremity ed epi R60.0 [facility] [address] [address] Jun, Borderline intellectual functioning R41. 83 and Bipolar disorder, in partial remission, most recent episode manic F31.73 [facility] [address] [place] [address] [place] [address] Jun, [facility] [address] [address] May, Bronchitis J40 [facility] [address] [address] May, Screening for breast cancer Z12.31 and E ncounter for immunization Z23 [facility] [address] [address] May, Bipolar 1 disorder F31.9 ; Borderline in tellectual functioning R41.83 and Extreme poverty Z59.5 [place] [address] [place] [address] [place] [address] 11 Apr, 2018 [facility] [address] [address] 07 Apr, 2018 Bipolar 1 disorder F31.9 ; Borderline in tellectual functioning R41.83 and Extreme poverty Z59.5 [place] [address] [address] 05 Apr, 2018 Irritable bowel syndrome with diarrhea K 58.0 and Dental abscess K04.7 [place] [address] [address] Mar, [place] [address] [address] Mar, [place] [address] [address] Mar, Bipolar 1 disorder F31.9 ; Borderline in tellectual functioning R41.83 and Extreme poverty Z59.5 [place] [address] [address] Mar, Hypertriglyceridemia E78.1 [place] [address] [address] Mar, Borderline intellectual functioning R41. 83 and Bipolar disorder, in partial remission, most recent episode manic F31.73 [place] [address] [address] Mar, Bipolar 1 disorder F31.9 ; Borderline in tellectual functioning R41.83 and Extreme poverty Z59.5 [place] [address] [address] Feb, Generalized abdominal pain R10.84 and Di arrhea, unspecified type R19.7 [place] [address] [address] Feb, [place] [address] [address] Feb, Myalgia M79.10 and Nausea R11.0 [place] [address] [address] Feb, Bipolar 1 disorder F31.9 ; Borderline in tellectual functioning R41.83 and Extreme poverty Z59.5 [place] [address] [address] Feb, [place] [address] [address] Feb, Diabetes E11.9 ; Hyperglycemia R73.9 and Diarrhea, unspecified R19.7 [place] [address] [address] Feb, Diarrhea, unspecified type R19.7 ; Abdom inal pain R10.9 and Encounter for immunization Z23 [place] [address] [address] Jan, Bipolar 1 disorder F31.9 ; Borderline in tellectual functioning R41.83 and Extreme poverty Z59.5 [place] [address] [address] Dec, Bipolar 1 disorder F31.9 ; Borderline in tellectual functioning R41.83 and Extreme poverty Z59.5 [place] [address] [address] Nov, [place] [address] [address] Nov, Hypertriglyceridemia E78.1 [place] [address] [address] Nov, Bipolar 1 disorder F31.9 ; Borderline in tellectual functioning R41.83 and Extreme poverty Z59.5 [place] [address] [address] Nov, Type 2 diabetes mellitus with complicati on E11.8 [place] [address] [address] Nov, Borderline intellectual functioning R41. 83 and Bipolar disorder, in partial remission, most recent episode manic F31.73 [place] [address] [address] 12 Nov, 2017 Type 2 diabetes mellitus with complicati on E11.8 [place] [address] [address] 11 Nov, 2017 Bipolar 1 disorder F31.9 ; Borderline in tellectual functioning R41.83 and Extreme poverty Z59.5 [place] [address] [address] Nov, Type 2 diabetes mellitus with complicati on E11.8 ; Pain of left upper arm M79.622 ; Pain in right upper arm M79.621 ; Hyperglycemia R73.9 ; Lumbago with sciatica, left side M54.42 and Other chronic pain G89.[address] [address] Oct, Bipolar 1 disorder F31.9 ; Borderline in tellectual functioning R41.83 and Extreme poverty Z59.5 [place] [address] [address] Oct, Type 2 diabetes mellitus with hyperglyce didi E11.65 ; residential current use of insulin Z79.4 and Other acute gastritis without hemorrhage K29.00 [place] [address] [address] Oct, Bipolar 1 disorder F31.9 ; Borderline in tellectual functioning R41.83 and Extreme poverty Z59.5 [place] [address] [address] Sep, Diarrhea, unspecified R19.7 and Vomiting , unspecified R11.10 [place] [address] [address] Aug, Type 2 diabetes mellitus with complicati on E11.8 [place] [address] [address] Aug, [place] [address] [address] Aug, Bipolar 1 disorder F31.9 ; Borderline in tellectual functioning R41.83 and Extreme poverty Z59.5 [place] [address] [address] Aug, Borderline intellectual functioning R41. 83 and Bipolar disorder, in partial remission, most recent episode manic F31.73 [place] [address] [address] Aug, Bipolar 1 disorder F31.9 [place] [address] [address] Aug, [place] [address] [address] Aug, [place] [address] [address] Aug, Bipolar 1 disorder F31.9 ; Borderline in tellectual functioning R41.83 and Extreme poverty Z59.5 [place] [address] [address] July, Type 2 diabetes mellitus with complicati on E11.8 [place] [address] [address] July, Bipolar 1 disorder F31.9 ; Borderline in tellectual functioning R41.83 and Extreme poverty Z59.5 [place] [address] [address] Jun, Bipolar 1 disorder F31.9 ; Borderline in tellectual functioning R41.83 and Extreme poverty Z59.5 [place] [address] [address] Jun, Bipolar 1 disorder F31.9 ; Borderline in tellectual functioning R41.83 and Extreme poverty Z59.5 [place] [address] [address] Jun, Bipolar 1 disorder F31.9 ; Borderline in tellectual functioning R41.83 and Extreme poverty Z59.5 [place] [address] [address] May, Urinary tract infection without hematuri a, site unspecified N39.0 [place] [address] [address] May, Bipolar 1 disorder F31.9 ; Borderline in tellectual functioning R41.83 and Extreme poverty Z59.5 [place] [address] [address] Apr, Diabetes E11.9 and Breast cancer screeni ng Z12.31 [place] [address] [address] Apr, Bipolar 1 disorder F31.9 and 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 [place] [address] [address] Mar, Bipolar 1 disorder F31.9 ; Borderline in tellectual functioning R41.83 and Extreme poverty Z59.5 [place] [address] [address] Mar, New daily persistent headache G44.52 ; L eg pain 729.5 and History of carpal tunnel release Z98.890 [place] [address] [address] Mar, Hyperlipidemia, unspecified E78.5 [place] [address] [address] Mar, Bipolar 1 disorder F31.9 ; Borderline in tellectual functioning R41.83 and Extreme poverty Z59.5 [place] [address] [address] Feb, Bipolar 1 disorder F31.9 ; Borderline in tellectual functioning R41.83 and Extreme poverty Z59.5 [place] [address] [address] Feb, Diabetes E11.9 [place] [address] [address] Feb, Viral syndrome B34.9 [place] [address] [address] Jan, Other viral agents as the cause of disea ses classified elsewhere B97.89 and Acute upper respiratory infection, unspecified J06.9 [place] [address] [address] Jan, Bipolar 1 disorder F31.9 and Borderline intellectual functioning R41.[address] [address] Jan, Bipolar 1 disorder F31.9 ; Borderline in tellectual functioning R41.83 and Extreme poverty Z59.[address] [address] Dec, Diabetes E11.9 [place] [address] [address] Dec, Diabetes E11.9 and Encounter for immuniz ation Z23 [address] [address] Dec, Bipolar 1 disorder F31.9 ; Borderline in tellectual functioning R41.83 and Extreme poverty Z59.5 [place] [address] [address] Dec, Back pain M54.9 [place] [address] [address] Nov, [address] [address] Nov, Bipolar 1 disorder F31.9 ; Borderline in tellectual functioning R41.83 and Extreme poverty Z59.5 [place] [address] [address] Nov, Bipolar 1 disorder F31.9 ; Borderline in tellectual functioning R41.83 and Extreme poverty Z59.5 [place] [address] [address] Oct, Borderline intellectual functioning R41. 83 and Bipolar 1 disorder F31.9 [place] [address] [address] Oct, Bipolar 1 disorder F31.9 ; Borderline in tellectual functioning R41.83 and Extreme poverty Z59.5 [place] [address] [address] Oct, Back pain M54.9 [place] [address] [address] Oct, Borderline intellectual functioning R41. 83 and Type 2 diabetes mellitus with complication E11.8 [place] [address] [address] Sep, Bipolar 1 disorder F31.9 ; Borderline in tellectual functioning R41.83 and Extreme poverty Z59.5 [place] [address] [address] Sep, Borderline intellectual functioning R41. 83 and Bipolar 1 disorder F31.9 [place] [address] [address] Sep, Bipolar 1 disorder F31.9 ; Borderline in tellectual functioning R41.83 and Extreme poverty Z59.5 [place] [address] [address] Aug, Diabetes E11.9 ; Hyperlipidemia, unspeci fied E78.5 and Lumbar radiculopathy M54.16 [place] [address] [address] Aug, Bipolar 1 disorder F31.9 ; Borderline in tellectual functioning R41.83 and Extreme poverty Z59.5 [place] [address] [address] Aug, [place] [address] [place] [id number] [place] [address] Aug, [facility] [address] [place] [address] [place] [address] Aug, [facility] [address] [place] [address] [place] [address] July, [facility] [address] [address] July, Acute bilateral low back pain with right -sided sciatica M54.41 [place] [address] [address] July, Bipolar 1 disorder F31.9 ; Borderline in tellectual functioning R41.83 and Extreme poverty Z59.5 [place] [address] [address] July, Back pain M54.9 and Diabetes E11.9 [place] [address] [address] Jun, Bipolar 1 disorder F31.9 ; Borderline in tellectual functioning R41.83 and Extreme poverty Z59.5 [place] [address] [address] Jun, Bipolar 1 disorder F31.9 ; Borderline in tellectual functioning R41.83 and Extreme poverty Z59.5 [place] [address] [place] [id number] [place] [address] May, Visit for pelvic exam Z01.419 ; Acute va ginitis N76.0 and Diabetes E11.9 [facility] [address] [place] [id number] [place] [address] May, Bipolar 1 disorder F31.9 ; Borderline in tellectual functioning R41.83 and Extreme poverty Z59.5 [place] [address] [address] May, [place] [address] [address] May, [place] [address] [address] May, Bipolar 1 disorder F31.9 ; Borderline in tellectual functioning R41.83 and Extreme poverty Z59.5 [place] [address] [address] May, Hyperlipidemia, unspecified E78.5 [place] [address] [address] Apr, Breast cancer screening Z12.39 [place] [address] [address] Mar, [place] [address] [address] Mar, Bipolar disorder, current episode mixed, unspecified F31.60 [place] [address] [address] Mar, Bipolar 1 disorder F31.9 ; Borderline in tellectual functioning R41.83 and Extreme poverty Z59.5 [place] [address] [address] Feb, Acute nasopharyngitis J00 [place] [address] [address] 27 Feb, 2016 Dental examination Z01.20 [place] [address] [address] Feb, Dental cavities K02.9 and Chronic period ontitis, unspecified K05.30 [place] [address] [address] Feb, Low back pain M54.5 and Extreme poverty Z59.5 [place] [address] [address] 08 Feb, 2016 [place] [address] [address] 05 Feb, 2016 Routine gynecological examination V72.31 ; Breast cancer screening Z12.39 and Herpes simplex type 1 infection B00.9 [place] [address] [address] Feb, Diabetes E11.9 [place] [address] [place] [address] Feb, Encounter for dental examination and leti aning without abnormal findings Z01.20 [place] [address] [address] Jan, Hyperlipidemia, unspecified E78.5 [place] [address] [address] Jan, Bipolar 1 disorder F31.9 ; Borderline in tellectual functioning R41.83 and Extreme poverty Z59.5 [place] [address] [address] 18 Jan, 2016 Diabetes E11.9 [place] [address] [address] 17 Jan, 2016 Diabetes E11.9 [place] [address] [address] 14 Dec, 2015 Bipolar 1 disorder F31.9 ; Borderline in tellectual functioning R41.83 and Extreme poverty Z59.5 [place] [address] [address] 13 Dec, 2015 Bipolar disorder, current episode mixed, unspecified F31.60 and 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 [place] [address] [address] 16 Nov, 2015 Bipolar 1 disorder F31.9 ; Borderline in tellectual functioning R41.83 ; Extreme poverty Z59.5 and Non compliance with medical treatment Z91.19 [place] [address] [address] Oct, [place] [address] [address] Oct, Dental caries K02.9 [place] [address] [address] Oct, Low back pain M54.5 and Other chronic pa in G89.29 [place] [address] [address] Oct, Bipolar 1 disorder F31.9 ; Borderline in tellectual functioning R41.83 ; Extreme poverty Z59.5 and Non compliance with medical treatment Z91.19 [place] [address] [address] Oct, [place] [address] [address] Oct, [place] [address] [address] Oct, Dental examination Z01.20 [place] [address] [address] Oct, Bipolar 1 disorder F31.9 ; Borderline in tellectual functioning R41.83 ; Extreme poverty Z59.5 and Non compliance with medical treatment Z91.19 [place] [address] [address] Oct, [place] [address] [address] Sep, Type 2 diabetes mellitus with complicati on E11.8 [place] [address] [address] Sep, Bipolar disorder, current episode mixed, unspecified F31.60 [place] [address] [address] Sep, Bipolar disorder, current episode mixed, unspecified F31.60 [place] [address] [address] Sep, Bipolar disorder, in partial remission, most recent episode manic F31.73 ; 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 ; Extreme poverty Z59.5 and Non compliance with medical treatment Z91.19 [place] [address] [address] 15 Aug, 2015 Bipolar disorder, in partial remission, most recent episode manic F31.73 ; 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 ; Extreme poverty Z59.5 and Non compliance with medical treatment Z91.19 [place] [address] [address] Aug, Bipolar disorder, in partial remission, most recent episode manic F31.73 ; 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 ; Extreme poverty Z59.5 and Non compliance with medical treatment Z91.19 [place] [address] [address] Aug, [place] [address] [address] July, Bipolar disorder, in partial remission, most recent episode manic F31.73 ; 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 ; Extreme poverty Z59.5 and Non compliance with medical treatment Z91.19 [place] [address] [address] July, Bipolar disorder, current episode mixed, unspecified F31.60 [place] [address] [address] July, Bipolar disorder, in partial remission, most recent episode manic F31.73 ; 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 ; Extreme poverty Z59.5 and Non compliance with medical treatment Z91.19 [place] [address] [address] July, residential current use of opiate analgesi c Z79.891 and Chronic pain G89.29 [place] [address] [address] Jun, 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 and Bipolar 1 disorder F31.9 [place] [address] [address] Jun, [place] [address] [address] Jun, [place] [address] [address] Jun, [place] [address] [address] Jun, Bipolar disorder, in partial remission, most recent episode manic F31.73 ; 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 and Non compliance with medical treatment Z91.19 [place] [address] [address] May, Bipolar disorder, in partial remission, most recent episode manic F31.73 ; 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 and Non compliance with medical treatment Z91.19 [place] [address] [address] May, Bipolar disorder, in partial remission, most recent episode manic F31.73 [place] [address] [address] May, Diabetes E11.9 and Chronic pain G89.29 [place] [address] [address] May, [place] [address] [address] May, Bipolar disorder, in partial remission, most recent episode manic F31.73 ; Non compliance with medical treatment Z91.19 and 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 [place] [address] [address] May, Type 2 diabetes mellitus with complicati on E11.8 and Back pain M54.[address] [address] May, Bipolar disorder, in partial remission, most recent episode manic F31.73 and 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 [place] [address] [address] Apr, [place] [address] [address] 18 Apr, 2015 [place] [address] [address] Apr, [place] [address] [address] 09 Apr, 2015 Diabetes E11.9 ; Irritable bowel syndrom e with diarrhea K58.0 and Lumbar radiculopathy M54.16 [place] [address] [address] 02 Apr, 2015 Breast screening Z12.39 [place] [address] [address] Apr, Bipolar disorder, in partial remission, most recent episode manic F31.73 ; Non compliance with medical treatment Z91.19 and 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 [place] [address] [address] Mar, Edema, unspecified type R60.9 and Type 2 diabetes mellitus with complication E11.8 [place] [address] [address] Mar, Bipolar disorder, in partial remission, most recent episode manic F31.73 ; Non compliance with medical treatment Z91.19 ; 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 and Extreme poverty Z59.5 [place] [address] [address] Mar, Bipolar disorder, current episode mixed, unspecified F31.60 ; 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 ; Extreme poverty Z59.5 and Generalized anxiety disorder F41.1 [place] [address] [address] Mar, Bipolar disorder, in partial remission, most recent episode manic F31.73 ; 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 and Extreme poverty Z59.5 [place] [address] [address] Feb, Bipolar disorder, in partial remission, most recent episode manic F31.73 ; 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 and Extreme poverty Z59.5 [place] [address] [address] Feb, Bipolar disorder, in partial remission, most recent episode manic F31.73 ; 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 and Extreme poverty Z59.5 [place] [address] [address] Feb, [place] [address] [address] Jan, Type 2 diabetes mellitus with complicati on E11.8 and Petechiae R23.3 [place] [address] [address] Jan, Type 2 diabetes mellitus with complicati on E11.8 ; Edema, unspecified R60.9 ; Petechiae R23.3 and Diabetes E11.9 [place] [address] [address] Jan, Bipolar disorder, in partial remission, most recent episode manic F31.73 ; 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 and Extreme poverty Z59.5 [place] [address] [address] Jan, Bipolar disorder, in partial remission, most recent episode manic F31.73 ; 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 and Extreme poverty Z59.5 [place] [address] [address] Dec, Bipolar disorder, in partial remission, most recent episode manic F31.73 [place] [address] [address] Dec, Edema, due to unspecified malnutrition t ype, unspecified edema R60.9 and Essential hypertension I10 [place] [address] [address] Dec, Bipolar disorder, in partial remission, most recent episode manic F31.73 [place] [address] [address] Nov, Bipolar I disorder, most recent episode (or current) mixed, unspecified 296.60 [facility] [address] [address] Nov, Stress incontinence, female 625.6 ; Back pain 724.5 and Leg pain 729.5 [facility] [address] [address] Nov, Generalized anxiety disorder 300.02 and Bipolar II disorder 296.89 [facility] [address] [address] Nov, Bipolar I disorder, most recent episode (or current) mixed, unspecified 296.60 [facility] [address] [address] Oct, [facility] [address] [address] Oct, [facility] [address] [address] Oct, [facility] [address] [address] Oct, Bipolar I disorder, most recent episode (or current) mixed, unspecified 296.60 [facility] [address] [address] Sep, Diabetes 250.00 [facility] [address] [address] Sep, Bipolar I disorder, most recent episode (or current) mixed, unspecified 296.60 [facility] [address] [address] Sep, [facility] [address] [address] Sep, [facility] [address] [address] Sep, Bipolar I disorder, most recent episode (or current) mixed, unspecified 296.60 [facility] [address] [address] Sep, Bipolar I disorder, most recent episode (or current) mixed, unspecified 296.60 [facility] [address] [address] Sep, [facility] [address] [address] Sep, Anxiety 300.00 ; Diabetes 250.00 and Hyp erlipidemia 272.4 [facility] [address] [address] Aug, [facility] [address] [address] Aug, [facility] [address] [address] Aug, [facility] [address] [address] Aug, Bipolar I disorder, most recent episode (or current) mixed, unspecified 296.60 [facility] [address] [address] Aug, Generalized anxiety disorder 300.02 and Bipolar II disorder 296.89 [facility] [address] [address] July, Bipolar I disorder, most recent episode (or current) mixed, unspecified 296.60 [facility] [address] [address] July, Cough 786.2 [facility] [address] [address] July, Bipolar I disorder, most recent episode (or current) mixed, unspecified 296.60 [facility] [address] [address] Jun, Diabetes 250.00 [facility] [address] [address] Jun, [facility] [address] [id number] [place] [address] 13 Jun, 2014 [facility] [address] [id number] [place] [address] 24 May, 2014 [facility] [address] [id number] [place] [address] 24 May, 2014 [facility] [address] [id number] [place] [address] May, [facility] [address] [id number] [place] [address] May, [facility] [address] [id number] [place] [address] May, [facility] [address] [id number] [place] [address] May, [facility] [address] [id number] [place] [address] Apr, [facility] [address] [id number] [place] [address] Apr, [facility] [address] [id number] [place] [address] Apr, [facility] [address] [id number] [place] [address] Apr, [facility] [address] [id number] [place] [address] Apr, [facility] [address] [id number] [place] [address] 10 Apr, 2014 [facility] [address] [id number] [place] [address] Apr, [facility] [address] [id number] [place] [address] 05 Apr, 2014 [facility] [address] [id number] [place] [address] Mar, [facility] [address] [id number] [place] [address] Mar, [facility] [address] [facility] [id number] [place] [address] Mar, [facility] [address] [id number] [place] [address] Mar, [facility] [address] [id number] [place] [address] Mar, [facility] [address] [id number] [place] [address] Mar, [facility] [address] [id number] [place] [address] Mar, [facility] [address] [id number] [place] [address] Mar, [facility] [address] [id number] [place] [address] Feb, [facility] [address] [id number] [place] [address] Feb, [facility] [address] [id number] [place] [address] Feb, [facility] [address] [id number] [place] [address] Feb, [facility] [address] [id number] [place] [address] Feb, [facility] [address] [id number] [place] [address] Feb, [facility] [address] [id number] [place] [address] Feb, [facility] [address] [id number] [place] [address] Feb, [facility] [address] [id number] [place] [address] Feb, [facility] [address] [id number] [place] [address] Feb, [facility] [address] [id number] [place] [address] Jan, [facility] [address] [id number] [place] [address] Jan, [facility] [address] [id number] [place] [address] Jan, [facility] [address] [id number] [place] [address] Jan, [facility] [address] [id number] [place] [address] Jan, [facility] [address] [id number] [place] [address] Jan, [facility] [address] [id number] [place] [address] Jan, [facility] [address] [place] [id number] [place] [address] Jan, [facility] [address] [id number] [place] [address] Jan, [facility] [address] [id number] [place] [address] Jan, [facility] [address] [id number] [place] [address] Jan, [facility] [address] [id number] [place] [address] Jan, [facility] [address] [id number] [place] [address] Jan, [facility] [address] [id number] [place] [address] Jan, [facility] [address] [place] [id number] [place] [address] Jan, [facility] [address] [id number] [place] [address] Dec, [facility] [address] [id number] [place] [address] Dec, 2013 [facility] [address] [facility] [id number] [place] [address] Dec, 2013 [facility] [address] [facility] [id number] [place] [address] Dec, 2013 [facility] [address] [id number] [place] [address] 09 Dec, 2013 [facility] [address] [id number] [place] [address] Dec, 2013 [facility] [address] [facility] [id number] [place] [address] Dec, 2013 [facility] [address] [id number] [place] [address] Dec, 2013 [facility] [address] [id number] [place] [address] 25 Sep, 2013 [facility] [address] [id number] [place] [address] 25 Sep, 2013 [facility] [address] [id number] [place] [address] 10 Sep, 2013 [facility] [address] [id number] [place] [address] 10 Sep, 2013 [facility] [address] [id number] [place] [address] 08 Sep, 2013 [facility] [address] [id number] [place] [address] 08 Sep, 2013 [facility] [address] [id number] [place] [address] 08 Sep, 2013 [facility] [address] [id number] [place] [address] 08 Sep, 2013 [facility] [address] [id number] [place] [address] 08 Sep, 2013 [facility] [address] [id number] [place] [address] 08 Sep, 2013 [facility] [address] [id number] [facility] [place] [address] 04 Nov, 2013 [facility] [address] [id number] [facility] [place] [address] Nov, 2013 [facility] [address] [facility] [id number] [place] [address] Nov, [facility] [address] [id number] [place] [address] Nov, [facility] [address] [id number] [place] [address] Nov, [facility] [address] [id number] [place] [address] Oct, [facility] [address] [id number] [place] [address] Oct, [facility] [address] [id number] [place] [address] Oct, [facility] [address] [id number] [place] [address] Oct, [facility] [address] [id number] [place] [address] Oct, [facility] [address] [id number] [place] [address] Oct, [facility] [address] [id number] [place] [address] Oct, [facility] [address] [id number] [place] [address] Oct, [facility] [address] [id number] [place] [address] Oct, [facility] [address] [id number] [place] [address] Oct, [facility] [address] [id number] [place] [address] Oct, [facility] [address] [id number] [place] [address] Oct, [facility] [address] [facility] [id number] [place] [address] Oct, [facility] [address] [facility] [id number] [place] [address] Oct, [facility] [address] [id number] [place] [address] Sep, [facility] [address] [id number] [place] [address] Sep, 2013 [facility] [address] [facility] [id number] [place] [address] Sep, [facility] [address] [id number] [place] [address] Sep, [facility] [address] [id number] [place] [address] Sep, [facility] [address] [id number] [place] [address] Sep, [facility] [address] [id number] [place] [address] Sep, [facility] [address] [id number] [place] [address] Sep, [facility] [address] [id number] [place] [address] Aug, [facility] [address] [id number] [place] [address] Aug, [facility] [address] [id number] [place] [address] Aug, [facility] [address] [facility] [id number] [place] [address] Aug, [facility] [address] [id number] [place] [address] Aug, [facility] [address] [id number] [place] [address] Aug, [facility] [address] [id number] [place] [address] Aug, [facility] [address] [facility] [id number] [place] [address] Aug, [facility] [address] [facility] [id number] [facility] [place] [address] July, [facility] [address] [id number] [place] [address] July, [facility] [address] [id number] [facility] [place] [address] July, [facility] [address] [facility] [id number] [place] [address] July, [facility] [address] [id number] [place] [address] July, [facility] [address] [id number] [place] [address] July, [facility] [address] [id number] [place] [address] July, [facility] [address] [facility] [id number] [place] [address] July, [facility] [address] [id number] [place] [address] Jun, [facility] [address] [id number] [place] [address] Jun, [facility] [address] [id number] [place] [address] Jun, [facility] [address] [facility] [id number] [place] [address] Jun, [facility] [address] [facility] [id number] [place] [address] Jun, [facility] [address] [id number] [place] [address] Jun, [facility] [address] [id number] [place] [address] Jun, [facility] [address] [id number] [facility] [place] [address] 15 Jun, 2013 [facility] [address] [id number] [facility] [place] [address] Jun, [facility] [address] [facility] [id number] [place] [address] Jun, [facility] [address] [id number] [place] [address] Jun, [facility] [address] [facility] [id number] [place] [address] Jun, [facility] [address] [facility] [id number] [place] [address] May, [facility] [address] [id number] [place] [address] May, [facility] [address] [id number] [place] [address] May, [facility] [address] [id number] [place] [address] May, [facility] [address] [id number] [place] [address] May, [facility] [address] [id number] [place] [address] May, [facility] [address] [id number] [place] [address] May, [facility] [address] [id number] [place] [address] May, [facility] [address] [facility] [id number] [place] [address] May, [facility] [address] [id number] [place] [address] May, [facility] [address] [id number] [place] [address] May, [facility] [address] [id number] [place] [address] May, [facility] [address] [id number] [place] [address] May, [facility] [address] [id number] [place] [address] May, [facility] [address] [id number] [place] [address] Apr, [facility] [address] [id number] [place] [address] Apr, [facility] [address] [id number] [place] [address] Apr, [facility] [address] [id number] [place] [address] Apr, [facility] [address] [id number] [place] [address] Apr, [facility] [address] [id number] [place] [address] Apr, [facility] [address] [id number] [place] [address] Mar, [facility] [address] [id number] [place] [address] Mar, [facility] [address] [id number] [place] [address] Mar, [facility] [address] [id number] [place] [address] Mar, [facility] [address] [id number] [place] [address] Mar, [facility] [address] [id number] [place] [address] Mar, [facility] [address] [id number] [place] [address] Mar, [facility] [address] [id number] [place] [address] Mar, [facility] [address] [id number] [place] [address] Mar, [facility] [address] [id number] [place] [address] Mar, [facility] [address] [id number] [place] [address] Mar, [facility] [address] [id number] [place] [address] Mar, [facility] [address] [id number] [place] [address] Mar, [facility] [address] [id number] [place] [address] Mar, [facility] [address] [id number] [place] [address] Feb, [facility] [address] [id number] [place] [address] Feb, [facility] [address] [id number] [place] [address] Feb, [facility] [address] [id number] [place] [address] Feb, [facility] [address] [id number] [place] [address] Feb, [facility] [address] [id number] [place] [address] Feb, [facility] [address] [id number] [place] [address] Feb, [facility] [address] [id number] [place] [address] Feb, [facility] [address] [id number] [place] [address] Feb, [facility] [address] [id number] [place] [address] Feb, [facility] [address] [id number] [place] [address] Feb, [facility] [address] [id number] [place] [address] 09 Feb, 2012 [facility] [address] [id number] [place] [address] 05 Feb, 2012 [facility] [address] [id number] [place] [address] 05 Feb, 2012 [facility] [address] [id number] [place] [address] 05 Feb, 2012 [facility] [address] [id number] [place] [address] 05 Feb, 2012 [facility] [address] [id number] [place] [address] 24 Dec, 2012 [facility] [address] [id number] [place] [address] 24 Dec, 2012 [facility] [address] [id number] [place] [address] 16 Dec, 2012 [facility] [address] [id number] [place] [address] 16 Dec, 2012 [facility] [address] [id number] [place] [address] 16 Dec, 2012 [facility] [address] [id number] [place] [address] 16 Dec, 2012 [facility] [address] [id number] [place] [address] 14 Dec, 2012 [facility] [address] [id number] [place] [address] 14 Dec, 2012 [facility] [address] [id number] [place] [address] 10 Dec, 2012 [facility] [address] [id number] [place] [address] 10 Dec, 2012 [facility] [address] [id number] [place] [address] 10 Dec, 2012 [facility] [address] [id number] [place] [address] Dec, [facility] [address] [facility] [id number] [place] [address] Dec, [facility] [address] [id number] [place] [address] 25 Nov, 2012 [facility] [address] [id number] [place] [address] 20 Nov, 2012 [facility] [address] [id number] [place] [address] 18 Nov, 2012 [facility] [address] [facility] [id number] [place] [address] 16 Nov, 2012 [facility] [address] [id number] [place] [address] 12 Nov, 2012 [facility] [address] [id number] [place] [address] 11 Nov, 2012 [facility] [address] [id number] [place] [address] 05 Nov, 2012 [facility] [address] [id number] [place] [address] Oct, [facility] [address] [id number] [place] [address] Oct, [facility] [address] [id number] [place] [address] Sep, [facility] [address] [id number] [place] [address] Sep, [facility] [address] [id number] [place] [address] Sep, [facility] [address] [id number] [place] [address] Sep, [facility] [address] [id number] [place] [address] 15 Sep, 2012 [facility] [address] [id number] [place] [address] Sep, [facility] [address] [id number] [place] [address] 08 Sep, 2012 [facility] [address] [facility] [id number] [place] [address] 25 Aug, 2012 [facility] [address] [facility] [id number] [place] [address] 18 Aug, 2012 [facility] [address] [id number] [place] [address] 16 Aug, 2012 [facility] [address] [id number] [place] [address] Aug, [facility] [address] [facility] [id number] [place] [address] Aug, [facility] [address] [id number] [place] [address] Aug, [facility] [address] [id number] [place] [address] Aug, [facility] [address] [id number] [place] [address] Aug, [facility] [address] [id number] [place] [address] July, [facility] [address] [id number] [place] [address] July, [facility] [address] [id number] [place] [address] July, [facility] [address] [facility] [id number] [place] [id number] July, [facility] [address] [facility] [id number] [place] [address] July, [facility] [address] [id number] [place] [address] Jun, [facility] [address] [id number] [place] [address] May, [facility] [address] [id number] [place] [address] 14 May, 2012 [facility] [address] [id number] [place] [address] May, [facility] [address] [id number] [place] [address] Apr, [facility] [address] [id number] [place] [address] Apr, [facility] [address] [id number] [place] [address] Apr, [facility] [address] [id number] [place] [address] Mar, [facility] [address] [id number] [place] [address] Mar, [facility] [address] [id number] [place] [address] Mar, [facility] [address] [id number] [place] [address] Mar, [facility] [address] [id number] [place] [address] Mar, [facility] [address] [id number] [place] [address] Mar, [facility] [address] [id number] [place] [address] Mar, [facility] [address] [id number] [place] [address] Feb, [facility] [address] [id number] [place] [address] 31 Feb, 2012 [facility] [address] [id number] [place] [address] 18 Feb, 2012 [facility] [id number] [place] [address] 18 Feb, 2012 [facility] [address] [id number] [place] [address] Feb, [facility] [address] [id number] [place] [address] Feb, [facility] [address] [id number] [place] [address] Feb, [facility] [address] [id number] [place] [address] Feb, [facility] [address] [id number] [place] [address] Jan, [facility] [address] [id number] [place] [address] Jan, [facility] [address] [id number] [place] [address] Jan, [facility] [address] [id number] [place] [address] Jan, [facility] [address] [id number] [place] [address] Jan, [facility] [address] [id number] [place] [address] Jan, [facility] [address] [id number] [place] [address] Jan, [facility] [address] [id number] [place] [address] Jan, [facility] [address] [id number] [place] [address] Jan, [facility] [address] [id number] [place] [address] Jan, [facility] [address] [id number] [place] [address] Jan, [facility] [address] [id number] [place] [address] Jan, [facility] [address] [id number] [place] [address] Jan, [facility] [address] [id number] [place] [address] Jan, [facility] [address] [id number] [place] [address] Jan, [facility] [address] [facility] [id number] [place] [address] Jan, [facility] [address] [facility] [id number] [place] [address] Dec, [facility] [address] [id number] [place] [address] Dec, [facility] [address] [id number] [place] [address] Dec, [facility] [address] [facility] [id number] [place] [address] Dec, [facility] [address] [id number] [place] [address] Dec, [facility] [address] [id number] [place] [address] Dec, [facility] [address] [id number] [place] [address] Dec, [facility] [address] [id number] [place] [address] Dec, [facility] [address] [id number] [place] [address] Dec, [facility] [address] [id number] [place] [address] Dec, [facility] [address] [id number] [place] [address] 18 Nov, 2011 [facility] [address] [facility] [id number] [place] [address] 13 Nov, 2011 [facility] [address] [id number] [place] [address] 24 Oct, 2011 [facility] [address] [id number] [place] [address] Oct, [facility] [address] [id number] [place] [address] Oct, [facility] [address] [id number] [place] [address] 16 Oct, 2011 [facility] [address] [id number] [place] [address] Oct, [facility] [address] [id number] [place] [address] Oct, [facility] [address] [id number] [place] [address] Oct, [facility] [address] [id number] [place] [address] Sep, [facility] [address] [id number] [place] [address] Aug, [facility] [address] [id number] [place] [address] Aug, [facility] [address] [id number] [place] [address] Aug, [facility] [address] [id number] [place] [address] Aug, [facility] [address] [id number] [place] [address] Aug, [facility] [address] [id number] [place] [address] July, [facility] [address] [id number] [place] [address] July, [facility] [address] [id number] [place] [address] July, [facility] [address] [id number] [place] [address] Jun, [facility] [address] [id number] [place] [address] Jun, [facility] [address] [id number] [place] [address] Jun, [facility] [address] [id number] [place] [address] Jun, [facility] [address] [id number] [place] [address] 30 May, 2011 [facility] [address] [id number] [place] [address] 30 May, 2011 [facility] [address] [id number] [place] [address] 29 May, 2011 [facility] [address] [id number] [place] [address] 28 May, 2011 [facility] [address] [id number] [place] [address] 23 May, 2011 [facility] [address] [id number] [place] [address] 22 May, 2011 [facility] [address] [id number] [place] [address] May, [facility] [address] [id number] [place] [address] May, [facility] [address] [id number] [place] [address] 08 May, 2011 [facility] [address] [id number] [place] [address] 05 May, 2011 [facility] [address] [id number] [place] [address] May, [facility] [address] [id number] [place] [address] May, [facility] [address] [id number] [place] [address] Mar, [facility] [address] [id number] [place] [address] Mar, [facility] [address] [id number] [place] [address] Feb, [facility] [address] [id number] [place] [address] Feb, [facility] [address] [id number] [place] [address] 20 Feb, 2011 [facility] [address] [id number] [place] [address] 15 Feb, 2011 [facility] [address] [id number] [place] [address] Feb, [facility] [address] [id number] [place] [address] Feb, [facility] [address] [id number] [place] [address] Feb, [facility] [address] [id number] [place] [address] Jan, [facility] [address] [id number] [place] [address] Jan, [facility] [address] [id number] [place] [address] Jan, [facility] [address] [id number] [place] [address] Jan, [facility] [address] [id number] [place] [address] Jan, [facility] [address] [id number] [place] [address] Jan, [facility] [address] [id number] [place] [address] Dec, [facility] [address] [id number] [place] [address] Dec, [facility] [address] [id number] [place] [address] Dec, [facility] [address] [id number] [place] [address] July, [facility] [address] [id number] [place] [address] July, [facility] [address] [id number] [place] [address] 08 Feb, 2010 [facility] [address] [id number] [place] [address] 18 Jan, 2010 [facility] [address] [id number] [place] [address] 25 Dec, 2009 [facility] [address] [id number] [place] [address] Dec, [facility] [address] [id number] [place] [address] 15 Sep, 2009 [facility] [address] [id number] [place] [address] Aug, [facility] [address] [id number] [place] [address] Jun, [facility] [address] [id number] [place] [address] Jun, [facility] [address] [id number] [place] [address] Jan, [facility] [address] [id number] [place] [address] Jan, [facility] [address] [id number] [place] [address] Jan, [facility] [address] [id number] [place] [address] Jan, [facility] [address] [id number] [place] [address] Dec, [facility] [address] [id number] [place] [address] Dec, [facility] [address] [id number] [place] [address] 15 Dec, 2008 [facility] [address] [id number] [place] [address] Nov, [facility] [address] [id number] [place] [address] July, [facility] [address] [id number] [place] [address] May, [facility] [address] [facility] [id number] [place] [address] Apr, [facility] [address] [facility] [id number] [place] [address] Feb, [facility] [address] [facility] [id number] [place] [address] Dec, IMMUNIZATIONS No Known Immunizations SOCIAL HISTORY Never Assessed REASON FOR VISIT PLAN OF CARE VITAL SIGNS Height 62 in 2013-06-21 Weight 208.8 lbs 2013-06-21 Temperature 97.1 degrees Fahrenheit 2013-06-21 Heart Rate 80 bpm 2013-06-21 Respiratory Rate 18 2013-06-21 Blood pressure systolic 142 mmHg 2013-06-21 Blood pressure diastolic 68 mmHg 2013-06-21 MEDICATIONS Unknown Medications RESULTS No Results PROCEDURES Procedure Date Ordered Result Body Site PSYTX PT&/FAMILY 30 MINUTES June 21, 2013 INSTRUCTIONS MEDICATIONS ADMINISTERED No Known [...]
--- OUTSIDE RECORDS SUMMARY | 2019-06-22 19:37 | XMS REPORT ---
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 Active 55237768 Problem Lumbar radiculopathy M54.16 Active 487531486 Problem Irritable bowel syndrome with diarrhea K58.0 Active 288681006 Problem shelter current 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 Z79.891 Active 219686397 Problem Diabetes E11.9 Active 602682297 Problem Type 2 diabetes mellitus with complication E11.8 Active 765284091 Problem Post laminectomy syndrome M96.1 Acti ve 98310443 Problem Bipolar 1 disorder F31.9 Active 3 07234800 Problem New daily persistent headache G44.52 Active 631716979 Problem Type 2 diabetes mellitus with hyperglycemia E11.65 Active 74779191 Problem Other chronic pain G89.29 Active 8 4377939 Problem Essential hypertension I10 Active 30262106 Problem Acute bilateral low back pain with right-sided sciatica M54.41 Active 700689555 Problem Bipolar disorder, in partial remission, most rec ent episode manic F31.73 Active 08733338 Problem Seasonal allergic rhinitis due to pollen J30.1 Active 89114994 Problem Hyperlipidemia, unspecified E78.5 Ac tive 68628115 Problem Eye exam normal Z01.00 Active 2438 80047 Problem Extreme poverty Z59.5 Active 1140 3006 Problem Lumbago with sciatica, left side M54.42 Active 035601067 Problem Hypertriglyceridemia E78.1 Active 185861323 Problem Insulin long-term use Z79.4 Active 431757888 Problem Rhinosinusitis J32.9 Active 77964 000 ALLERGIES No Information ENCOUNTERS Encounter Location Date Diagnosis [facility] [address] [address] 08 Aug, 2019 [facility] [address] [address] 07 Jun, 2019 [facility] [address] [address] May, [facility] [address] [address] May, [facility] [address] [address] May, [facility] [address] [address] May, Borderline intellectual functioning R41. 83 [place] [address] [address] 09 May, 2019 Type 2 diabetes mellitus with complicati on E11.8 [place] [address] [address] 09 May, 2019 Bipolar 1 disorder F31.9 ; Type 2 diabet es mellitus with complication E11.8 ; Pain of right thumb M79.644 ; Extreme poverty Z59.5 and Low back pain M54.5 [place] [address] [address] 09 May, 2019 [place] [address] [address] Apr, Bipolar 1 disorder F31.9 ; Borderline in tellectual functioning R41.83 and Extreme poverty Z59.5 [facility] [address] [facility] [id number] [address] [place] [address] Apr, Seasonal allergic rhinitis d ue to pollen J30.1 [place] [address] [address] Apr, Essential hypertension I10 and Diabetes E11.9 [place] [address] [address] Apr, [place] [address] [address] Mar, Bipolar 1 disorder F31.9 ; Borderline in tellectual functioning R41.83 and Extreme poverty Z59.5 [place] [address] [address] Mar, Exercise counseling Z71.82 [place] [address] [address] Mar, [place] [address] [address] Mar, Bipolar disorder, in partial remission, most recent episode manic F31.73 and 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 [place] [address] [address] Mar, [place] [address] [address] Mar, Exercise counseling Z71.82 [place] [address] [address] Feb, Bipolar 1 disorder F31.9 ; Borderline in tellectual functioning R41.83 and Extreme poverty Z59.5 [place] [address] [address] Feb, [place] [address] [address] Feb, Type 2 diabetes mellitus with complicati on E11.8 [facility] [address] [facility] [id number] [place] [address] Feb, Acute low back pain without sciatica, unspecified back pain laterality M54.5 [place] [address] [address] Feb, Bipolar 1 disorder F31.9 ; Borderline in tellectual functioning R41.83 and Extreme poverty Z59.5 [place] [address] [address] Jan, Bipolar 1 disorder F31.9 ; Borderline in tellectual functioning R41.83 and Extreme poverty Z59.5 [facility] [address] [address] Jan, [facility] [address] [address] Jan, Type 2 diabetes mellitus with complicati on E11.8 [facility] [address] [address] Jan, Type 2 diabetes mellitus with complicati on E11.8 ; Dysuria R30.0 and Diarrhea, unspecified type R19.7 [place] [address] [address] Jan, Bipolar 1 disorder F31.9 ; Borderline in tellectual functioning R41.83 and Extreme poverty Z59.5 [place] [address] [address] Dec, [facility] [address] [address] Dec, [facility] [address] [address] Dec, [facility] [address] [address] Dec, [facility] [address] [address] Dec, Rhinosinusitis J32.9 [facility] [address] [address] Dec, [facility] [address] [address] Dec, Bipolar 1 disorder F31.9 ; Borderline in tellectual functioning R41.83 and Extreme poverty Z59.5 [facility] [address] [address] Dec, Type 2 diabetes mellitus with complicati on E11.8 and Type 2 diabetes mellitus with hyperglycemia E11.65 [place] [address] [address] 07 Dec, 2018 [place] [address] [address] Dec, Type 2 diabetes mellitus with complicati on E11.8 ; Insulin long-term use Z79.4 ; Hyperglycemia R73.9 and Yeast infection B37.9 [place] [address] [address] Dec, Encounter for immunization Z23 [place] [address] [address] Nov, [place] [address] [address] Nov, Bipolar 1 disorder F31.9 ; Borderline in tellectual functioning R41.83 and Extreme poverty Z59.5 [place] [address] [address] Nov, [place] [address] [address] Nov, [place] [address] [address] Nov, Borderline intellectual functioning R41. 83 and Bipolar disorder, in partial remission, most recent episode manic F31.73 [facility] [place] [address] [place] [id number] [place] [address] Nov, Epigastric abdominal pain R1 0.13 [place] [address] [address] Nov, Bipolar 1 disorder F31.9 ; Borderline in tellectual functioning R41.83 and Extreme poverty Z59.5 [facility] [place] [id number] [address] [place] [address] Oct, Dysuria R30.0 and Acute cyst itis without hematuria N30.00 [facility] N [place] [id number] [address] [place] [address] Oct, [facility] [address] [place] [id number] [place] [address] Oct, [facility] [address] [address] Oct, Bipolar 1 disorder F31.9 ; Borderline in tellectual functioning R41.83 and Extreme poverty Z59.5 [facility] [address] [address] Oct, [facility] [address] [address] Oct, [facility] [address] [address] Oct, Bipolar disorder, in partial remission, most recent episode manic F31.73 and 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 [place] [address] [address] Oct, Bipolar 1 disorder F31.9 ; Borderline in tellectual functioning R41.83 and Extreme poverty Z59.5 [facility] [address] [place] [id number] [place] [address] Oct, Diarrhea, unspecified type R19.7 [facility] [address] [facility] [id number] [place] [id number] Sep, Dental examination Z01.20 and Dental car ies K02.9 [facility] [address] [facility] [id number] [address] [place] [address] Sep, Mouth pain K13.79 [facility] [address] [place] [id number] [place] [address] Sep, [facility] [address] [address] Sep, Bipolar 1 disorder F31.9 ; Borderline in tellectual functioning R41.83 and Extreme poverty Z59.5 [facility] [address] [address] Sep, [place] [address] [address] Sep, [place] [address] [address] Sep, Diabetes E11.9 ; Hyperglycemia R73.9 ; L 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 term current use of insulin Z79.4 and Diarrhea, unspecified type R19.7 [place] [address] [address] Sep, [place] [address] [address] Sep, Bipolar 1 disorder F31.9 ; Borderline in tellectual functioning R41.83 and Extreme poverty Z59.5 [place] [address] [address] Sep, [place] [address] [address] Sep, [place] [address] [address] Aug, Bipolar 1 disorder F31.9 ; Borderline in tellectual functioning R41.83 and Extreme poverty Z59.5 [place] [address] [address] Aug, Exercise counseling Z71.[address] [address] Aug, Bipolar 1 disorder F31.9 ; Borderline in tellectual functioning R41.83 and Extreme poverty Z59.5 [place] [address] [address] Aug, Borderline intellectual functioning R41. 83 and Bipolar disorder, in partial remission, most recent episode manic F31.73 [place] [address] [address] Aug, Low back pain M54.[address] [address] Aug, Borderline intellectual functioning R41. 83 and Bipolar disorder, in partial remission, most recent episode manic F31.73 [facility] [address] [address] July, Acute superficial gastritis without hemo rrhage K29.00 ; Low back pain M54.5 and Other chronic pain G89.29 [facility] [address] [address] July, [facility] [address] [address] July, [facility] [address] [address] Jun, [facility] [address] [facility] [id number] [address] [place] [address] Jun, Bilateral lower extremity ed epi R60.0 [place] [address] [address] Jun, Borderline intellectual functioning R41. 83 and Bipolar disorder, in partial remission, most recent episode manic F31.73 [place] [address] [address] Jun, [place] [address] [address] May, Bronchitis J40 [place] [address] [address] May, Screening for breast cancer Z12.31 and E ncounter for immunization Z23 [place] [address] [address] May, Bipolar 1 disorder F31.9 ; Borderline in tellectual functioning R41.83 and Extreme poverty Z59.5 [place] [address] [address] Apr, [place] [address] [address] Apr, Bipolar 1 disorder F31.9 ; Borderline in tellectual functioning R41.83 and Extreme poverty Z59.5 [place] [address] [address] 05 Apr, 2018 Irritable bowel syndrome with diarrhea K 58.0 and Dental abscess K04.7 [place] [address] [address] Mar, [place] [address] [address] Mar, [place] [address] [address] Mar, Bipolar 1 disorder F31.9 ; Borderline in tellectual functioning R41.83 and Extreme poverty Z59.5 [place] [address] [address] Mar, Hypertriglyceridemia E78.1 [place] [address] [address] Mar, Borderline intellectual functioning R41. 83 and Bipolar disorder, in partial remission, most recent episode manic F31.[address] [address] Mar, Bipolar 1 disorder F31.9 ; Borderline in tellectual functioning R41.83 and Extreme poverty Z59.5 [place] [address] [address] Feb, Generalized abdominal pain R10.84 and Di arrhea, unspecified type R19.7 [place] [address] [address] Feb, [address] [address] Feb, Myalgia M79.10 and Nausea R11.0 [place] [address] [address] Feb, Bipolar 1 disorder F31.9 ; Borderline in tellectual functioning R41.83 and Extreme poverty Z59.5 [place] [address] [address] Feb, [place] [address] [address] Feb, Diabetes E11.9 ; Hyperglycemia R73.9 and Diarrhea, unspecified R19.7 [place] [address] [address] Feb, Diarrhea, unspecified type R19.7 ; Abdom inal pain R10.9 and Encounter for immunization Z23 [place] [address] [address] Jan, Bipolar 1 disorder F31.9 ; Borderline in tellectual functioning R41.83 and Extreme poverty Z59.5 [place] [address] [address] Dec, Bipolar 1 disorder F31.9 ; Borderline in tellectual functioning R41.83 and Extreme poverty Z59.5 [place] [address] [address] Nov, [place] [address] [address] Nov, Hypertriglyceridemia E78.1 [place] [address] [address] Nov, Bipolar 1 disorder F31.9 ; Borderline in tellectual functioning R41.83 and Extreme poverty Z59.5 [place] [address] [address] Nov, Type 2 diabetes mellitus with complicati on E11.8 [place] [address] [address] Nov, Borderline intellectual functioning R41. 83 and Bipolar disorder, in partial remission, most recent episode manic F31.73 [place] [address] [address] Nov, Type 2 diabetes mellitus with complicati on E11.8 [place] [address] [address] Nov, Bipolar 1 disorder F31.9 ; Borderline in tellectual functioning R41.83 and Extreme poverty Z59.5 [place] [address] [address] Nov, Type 2 diabetes mellitus with complicati on E11.8 ; Pain of left upper arm M79.622 ; Pain in right upper arm M79.621 ; Hyperglycemia R73.9 ; Lumbago with sciatica, left side M54.42 and Other chronic pain G89.29 [place] [address] [address] Oct, Bipolar 1 disorder F31.9 ; Borderline in tellectual functioning R41.83 and Extreme poverty Z59.[address] [address] Oct, Type 2 diabetes mellitus with hyperglyce didi E11.65 ; 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.4 and Other acute gastritis without hemorrhage K29.[address] [address] Oct, Bipolar 1 disorder F31.9 ; Borderline in tellectual functioning R41.83 and Extreme poverty Z59.[address] [address] Sep, Diarrhea, unspecified R19.7 and Vomiting , unspecified R11.10 [place] [address] [address] Aug, Type 2 diabetes mellitus with complicati on E11.[address] [address] Aug, [address] [address] Aug, Bipolar 1 disorder F31.9 ; Borderline in tellectual functioning R41.83 and Extreme poverty Z59.5 [place] [address] [address] Aug, Borderline intellectual functioning R41. 83 and Bipolar disorder, in partial remission, most recent episode manic F31.73 [place] [address] [address] Aug, Bipolar 1 disorder F31.9 [place] [address] [address] Aug, [place] [address] [address] Aug, [place] [address] [address] Aug, Bipolar 1 disorder F31.9 ; Borderline in tellectual functioning R41.83 and Extreme poverty Z59.5 [place] [address] [address] July, Type 2 diabetes mellitus with complicati on E11.8 [place] [address] [address] July, Bipolar 1 disorder F31.9 ; Borderline in tellectual functioning R41.83 and Extreme poverty Z59.5 [place] [address] [address] Jun, Bipolar 1 disorder F31.9 ; Borderline in tellectual functioning R41.83 and Extreme poverty Z59.5 [place] [address] [address] Jun, Bipolar 1 disorder F31.9 ; Borderline in tellectual functioning R41.83 and Extreme poverty Z59.5 [place] [address] [address] Jun, Bipolar 1 disorder F31.9 ; Borderline in tellectual functioning R41.83 and Extreme poverty Z59.5 [place] [address] [address] May, Urinary tract infection without hematuri a, site unspecified N39.0 [place] [address] [address] May, Bipolar 1 disorder F31.9 ; Borderline in tellectual functioning R41.83 and Extreme poverty Z59.5 [place] [address] [address] 28 Apr, 2017 Diabetes E11.9 and Breast cancer screeni ng Z12.31 [place] [address] [address] 20 Apr, 2017 Bipolar 1 disorder F31.9 and 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 [place] [address] [address] Mar, Bipolar 1 disorder F31.9 ; Borderline in tellectual functioning R41.83 and Extreme poverty Z59.5 [place] [address] [address] Mar, New daily persistent headache G44.52 ; L eg pain 729.5 and History of carpal tunnel release Z98.890 [place] [address] [address] Mar, Hyperlipidemia, unspecified E78.5 [place] [address] [address] Mar, Bipolar 1 disorder F31.9 ; Borderline in tellectual functioning R41.83 and Extreme poverty Z59.5 [place] [address] [address] Feb, Bipolar 1 disorder F31.9 ; Borderline in tellectual functioning R41.83 and Extreme poverty Z59.5 [place] [address] [address] Feb, Diabetes E11.9 [place] [address] [address] Feb, Viral syndrome B34.9 [place] [address] [address] 27 Jan, 2017 Other viral agents as the cause of disea ses classified elsewhere B97.89 and Acute upper respiratory infection, unspecified J06.9 [place] [address] [address] 16 Jan, 2017 Bipolar 1 disorder F31.9 and 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 [place] [address] [address] Jan, Bipolar 1 disorder F31.9 ; Borderline in tellectual functioning R41.83 and Extreme poverty Z59.5 [place] [address] [address] Dec, Diabetes E11.9 [place] [address] [address] Dec, Diabetes E11.9 and Encounter for immuniz ation Z23 [place] [address] [address] Dec, Bipolar 1 disorder F31.9 ; Borderline in tellectual functioning R41.83 and Extreme poverty Z59.5 [place] [address] [address] Dec, Back pain M54.9 [place] [address] [address] Nov, [place] [address] [address] Nov, Bipolar 1 disorder F31.9 ; Borderline in tellectual functioning R41.83 and Extreme poverty Z59.5 [place] [address] [address] Nov, Bipolar 1 disorder F31.9 ; Borderline in tellectual functioning R41.83 and Extreme poverty Z59.5 [place] [address] [address] Oct, Borderline intellectual functioning R41. 83 and Bipolar 1 disorder F31.9 [place] [address] [address] Oct, Bipolar 1 disorder F31.9 ; Borderline in tellectual functioning R41.83 and Extreme poverty Z59.5 [place] [address] [address] 16 Oct, 2016 Back pain M54.9 [place] [address] [address] Oct, Borderline intellectual functioning R41. 83 and Type 2 diabetes mellitus with complication E11.8 [place] [address] [address] Sep, Bipolar 1 disorder F31.9 ; Borderline in tellectual functioning R41.83 and Extreme poverty Z59.5 [place] [address] [address] Sep, Borderline intellectual functioning R41. 83 and Bipolar 1 disorder F31.9 [place] [address] [address] Sep, Bipolar 1 disorder F31.9 ; Borderline in tellectual functioning R41.83 and Extreme poverty Z59.5 [place] [address] [address] Aug, Diabetes E11.9 ; Hyperlipidemia, unspeci fied E78.5 and Lumbar radiculopathy M54.16 [place] [address] [address] Aug, Bipolar 1 disorder F31.9 ; Borderline in tellectual functioning R41.83 and Extreme poverty Z59.5 [place] [address] [address] Aug, [place] [address] [address] 08 Aug, 2016 [place] [address] [address] Aug, [facility] [address] [place] [id number] [place] [address] July, [facility] [address] [address] July, Acute bilateral low back pain with right -sided sciatica M54.41 [facility] [address] [address] July, Bipolar 1 disorder F31.9 ; Borderline in tellectual functioning R41.83 and Extreme poverty Z59.5 [place] [address] [address] July, Back pain M54.9 and Diabetes E11.9 [place] [address] [address] Jun, Bipolar 1 disorder F31.9 ; Borderline in tellectual functioning R41.83 and Extreme poverty Z59.5 [place] [address] [address] Jun, Bipolar 1 disorder F31.9 ; Borderline in tellectual functioning R41.83 and Extreme poverty Z59.5 [place] [address] [address] May, Visit for pelvic exam Z01.419 ; Acute va ginitis N76.0 and Diabetes E11.9 [place] [address] [address] May, Bipolar 1 disorder F31.9 ; Borderline in tellectual functioning R41.83 and Extreme poverty Z59.5 [place] [address] [address] May, [place] [address] [address] May, [place] [address] [address] May, Bipolar 1 disorder F31.9 ; Borderline in tellectual functioning R41.83 and Extreme poverty Z59.5 [place] [address] [address] May, Hyperlipidemia, unspecified E78.5 [place] [address] [address] 13 Apr, 2016 Breast cancer screening Z12.39 [place] [address] [address] Mar, [place] [address] [address] Mar, Bipolar disorder, current episode mixed, unspecified F31.60 [place] [address] [address] Mar, Bipolar 1 disorder F31.9 ; Borderline in tellectual functioning R41.83 and Extreme poverty Z59.5 [place] [address] [address] Feb, Acute nasopharyngitis J00 [place] [address] [address] 27 Feb, 2016 Dental examination Z01.[address] [address] Feb, Dental cavities K02.9 and Chronic period ontitis, unspecified K05.30 [place] [address] [address] Feb, Low back pain M54.5 and Extreme poverty Z59.5 [place] [address] [address] Feb, [address] [address] 05 Feb, 2016 Routine gynecological examination V72.31 ; Breast cancer screening Z12.39 and Herpes simplex type 1 infection B00.9 [place] [address] [address] Feb, Diabetes E11.9 [place] [address] [address] 01 Feb, 2016 Encounter for dental examination and leti aning without abnormal findings Z01.20 [place] [address] [address] Jan, Hyperlipidemia, unspecified E78.5 [place] [address] [address] Jan, Bipolar 1 disorder F31.9 ; Borderline in tellectual functioning R41.83 and Extreme poverty Z59.5 [place] [address] [address] 18 Jan, 2016 Diabetes E11.9 [place] [address] [address] 17 Jan, 2016 Diabetes E11.9 [place] [address] [address] 14 Dec, 2015 Bipolar 1 disorder F31.9 ; Borderline in tellectual functioning R41.83 and Extreme poverty Z59.5 [place] [address] [address] 13 Dec, 2015 Bipolar disorder, current episode mixed, unspecified F31.60 and 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 [place] [address] [address] 16 Nov, 2015 Bipolar 1 disorder F31.9 ; Borderline in tellectual functioning R41.83 ; Extreme poverty Z59.5 and Non compliance with medical treatment Z91.19 [place] [address] [address] Oct, [address] [address] Oct, Dental caries K02.[address] [address] Oct, Low back pain M54.5 and Other chronic pa in G89.[address] [address] Oct, Bipolar 1 disorder F31.9 ; Borderline in tellectual functioning R41.83 ; Extreme poverty Z59.5 and Non compliance with medical treatment Z91.19 [place] [address] [address] Oct, [place] [address] [address] Oct, [place] [address] [address] Oct, Dental examination Z01.20 [place] [address] [address] Oct, Bipolar 1 disorder F31.9 ; Borderline in tellectual functioning R41.83 ; Extreme poverty Z59.5 and Non compliance with medical treatment Z91.19 [place] [address] [address] Oct, [place] [address] [address] Sep, Type 2 diabetes mellitus with complicati on E11.8 [place] [address] [address] Sep, Bipolar disorder, current episode mixed, unspecified F31.60 [place] [address] [address] Sep, Bipolar disorder, current episode mixed, unspecified F31.60 [place] [address] [address] 05 Sep, 2015 Bipolar disorder, in partial remission, most recent episode manic F31.73 ; 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 ; Extreme poverty Z59.5 and Non compliance with medical treatment Z91.19 [place] [address] [address] Aug, Bipolar disorder, in partial remission, most recent episode manic F31.73 ; 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 ; Extreme poverty Z59.5 and Non compliance with medical treatment Z91.19 [place] [address] [address] Aug, Bipolar disorder, in partial remission, most recent episode manic F31.73 ; 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 ; Extreme poverty Z59.5 and Non compliance with medical treatment Z91.19 [place] [address] [address] Aug, [place] [address] [place] [address] July, Bipolar disorder, in partial remission, most recent episode manic F31.73 ; 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 ; Extreme poverty Z59.5 and Non compliance with medical treatment Z91.19 [place] [address] [address] July, Bipolar disorder, current episode mixed, unspecified F31.60 [place] [address] [address] July, Bipolar disorder, in partial remission, most recent episode manic F31.73 ; 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 ; Extreme poverty Z59.5 and Non compliance with medical treatment Z91.19 [place] [address] [address] July, 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 and Chronic pain G89.29 [place] [address] [address] Jun, shelter current use of opiate analgesi c Z79.891 and Bipolar 1 disorder F31.9 [place] [address] [address] Jun, [place] [address] [address] Jun, [place] [address] [address] Jun, [place] [address] [address] Jun, Bipolar disorder, in partial remission, most recent episode manic F31.73 ; 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 and Non compliance with medical treatment Z91.19 [place] [address] [address] May, Bipolar disorder, in partial remission, most recent episode manic F31.73 ; 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 and Non compliance with medical treatment Z91.19 [place] [address] [address] May, Bipolar disorder, in partial remission, most recent episode manic F31.73 [place] [address] [address] May, Diabetes E11.9 and Chronic pain G89.29 [place] [address] [address] May, [place] [address] [address] May, Bipolar disorder, in partial remission, most recent episode manic F31.73 ; Non compliance with medical treatment Z91.19 and 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 [place] [address] [address] May, Type 2 diabetes mellitus with complicati on E11.8 and Back pain M54.9 [place] [address] [address] May, Bipolar disorder, in partial remission, most recent episode manic F31.73 and 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 [place] [address] [address] Apr, [place] [address] [address] Apr, [place] [address] [address] Apr, [place] [address] [place] [id number] 09 Apr, 2015 Diabetes E11.9 ; Irritable bowel syndrom e with diarrhea K58.0 and Lumbar radiculopathy M54.16 [place] [address] [address] 02 Apr, 2015 Breast screening Z12.39 [place] [address] [place] [address] Apr, Bipolar disorder, in partial remission, most recent episode manic F31.73 ; Non compliance with medical treatment Z91.19 and 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 [place] [address] [address] Mar, Edema, unspecified type R60.9 and Type 2 diabetes mellitus with complication E11.[address] [address] Mar, Bipolar disorder, in partial remission, most recent episode manic F31.73 ; Non compliance with medical treatment Z91.19 ; 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 and Extreme poverty Z59.5 [place] [address] [address] Mar, Bipolar disorder, current episode mixed, unspecified F31.60 ; 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 ; Extreme poverty Z59.5 and Generalized anxiety disorder F41.1 [place] [address] [address] Mar, Bipolar disorder, in partial remission, most recent episode manic F31.73 ; 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 and Extreme poverty Z59.5 [place] [address] [address] Feb, Bipolar disorder, in partial remission, most recent episode manic F31.73 ; 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 and Extreme poverty Z59.5 [place] [address] [address] Feb, Bipolar disorder, in partial remission, most recent episode manic F31.73 ; 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 and Extreme poverty Z59.5 [place] [address] [address] Feb, [place] [address] [address] Jan, Type 2 diabetes mellitus with complicati on E11.8 and Petechiae R23.3 [place] [address] [address] Jan, Type 2 diabetes mellitus with complicati on E11.8 ; Edema, unspecified R60.9 ; Petechiae R23.3 and Diabetes E11.9 [place] [address] [address] Jan, Bipolar disorder, in partial remission, most recent episode manic F31.73 ; 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 and Extreme poverty Z59.5 [place] [address] [address] Jan, Bipolar disorder, in partial remission, most recent episode manic F31.73 ; 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 and Extreme poverty Z59.5 [place] [address] [address] Dec, Bipolar disorder, in partial remission, most recent episode manic F31.73 [place] [address] [address] Dec, Edema, due to unspecified malnutrition t ype, unspecified edema R60.9 and Essential hypertension I10 [place] [address] [address] Dec, Bipolar disorder, in partial remission, most recent episode manic F31.73 [place] [address] [place] [id number] Nov, Bipolar I disorder, most recent episode (or current) mixed, unspecified 296.60 [place] [address] [address] Nov, Stress incontinence, female 625.6 ; Back pain 724.5 and Leg pain 729.5 [facility] [address] [address] Nov, Generalized anxiety disorder 300.02 and Bipolar II disorder 296.89 [facility] [address] [address] Nov, Bipolar I disorder, most recent episode (or current) mixed, unspecified 296.60 [facility] [address] [address] Oct, [facility] [address] [address] Oct, [facility] [address] [address] Oct, [facility] [address] [address] Oct, Bipolar I disorder, most recent episode (or current) mixed, unspecified 296.60 [facility] [address] [address] Sep, Diabetes 250.00 [facility] [address] [address] Sep, Bipolar I disorder, most recent episode (or current) mixed, unspecified 296.60 [facility] [address] [address] Sep, [facility] [address] [address] Sep, [facility] [address] [address] Sep, Bipolar I disorder, most recent episode (or current) mixed, unspecified 296.60 [facility] [address] [address] Sep, Bipolar I disorder, most recent episode (or current) mixed, unspecified 296.60 [facility] [address] [place] [id number] [place] [address] Sep, [facility] [address] [address] Sep, Anxiety 300.00 ; Diabetes 250.00 and Hyp erlipidemia 272.4 [facility] [address] [address] Aug, [facility] [address] [address] Aug, [facility] [address] [address] Aug, [facility] [address] [address] Aug, Bipolar I disorder, most recent episode (or current) mixed, unspecified 296.60 [facility] [address] [address] Aug, Generalized anxiety disorder 300.02 and Bipolar II disorder 296.89 [facility] [address] [address] July, Bipolar I disorder, most recent episode (or current) mixed, unspecified 296.60 [facility] [address] [address] July, Cough 786.2 [facility] [address] [address] July, Bipolar I disorder, most recent episode (or current) mixed, unspecified 296.60 [facility] [address] [address] Jun, Diabetes 250.00 [facility] [address] [address] 14 Jun, 2014 [facility] [address] [address] Jun, [facility] [address] [address] May, [facility] [address] [facility] [id number] [place] [address] May, [facility] [address] [facility] [id number] [place] [address] May, [facility] [address] [id number] [place] [address] May, [facility] [address] [id number] [place] [address] May, [facility] [address] [facility] [id number] [place] [address] May, [facility] [address] [id number] [place] [address] Apr, [facility] [address] [id number] [place] [address] Apr, [facility] [address] [id number] [place] [address] Apr, [facility] [address] [id number] [place] [address] Apr, [facility] [address] [id number] [place] [address] Apr, [facility] [address] [id number] [place] [address] Apr, [facility] [address] [id number] [place] [address] Apr, [facility] [address] [facility] [id number] [place] [address] Apr, [facility] [address] [id number] [place] [address] Mar, [facility] [address] [id number] [place] [address] Mar, [facility] [address] [id number] [place] [address] Mar, [facility] [address] [id number] [place] [address] Mar, [facility] [address] [id number] [place] [address] Mar, [facility] [address] [id number] [place] [address] Mar, [facility] [address] [id number] [place] [address] Mar, [facility] [address] [id number] [place] [address] Mar, [facility] [address] [id number] [place] [address] Feb, [facility] [address] [id number] [place] [address] Feb, [facility] [address] [id number] [place] [address] Feb, [facility] [address] [id number] [place] [address] Feb, [facility] [address] [id number] [place] [address] Feb, [facility] [address] [id number] [place] [address] Feb, [facility] [address] [id number] [place] [address] Feb, [facility] [address] [id number] [place] [address] Feb, [facility] [address] [id number] [place] [address] Feb, [facility] [address] [id number] [place] [address] Feb, [facility] [address] [id number] [place] [address] Jan, [facility] [address] [id number] [place] [address] Jan, [facility] [address] [id number] [place] [address] Jan, [facility] [address] [id number] [place] [address] Jan, [facility] [address] [id number] [place] [address] Jan, [facility] [address] [id number] [place] [address] Jan, [facility] [address] [id number] [place] [address] Jan, [facility] [address] [id number] [place] [address] Jan, [facility] [address] [id number] [place] [address] Jan, [facility] [address] [id number] [place] [address] Jan, [facility] [address] [id number] [place] [address] Jan, [facility] [address] [id number] [place] [address] Jan, [facility] [address] [id number] [place] [address] Jan, [facility] [address] [id number] [place] [address] Jan, [facility] [address] [id number] [place] [address] Jan, [facility] [address] [id number] [place] [address] Dec, [facility] [address] [id number] [place] [address] Dec, [facility] [address] [id number] [place] [address] Dec, [facility] [address] [id number] [place] [address] 16 Dec, 2013 [facility] [address] [id number] [place] [address] Dec, 2013 [facility] [address] [id number] [place] [address] Dec, 2013 [facility] [address] [id number] [place] [address] Dec, 2013 [facility] [address] [id number] [place] [address] Dec, 2013 [facility] [address] [id number] [place] [address] Nov, 2013 [facility] [address] [id number] [place] [address] 25 Nov, 2013 [facility] [address] [id number] [place] [address] 10 Nov, 2013 [facility] [address] [id number] [place] [address] 10 Nov, 2013 [facility] [address] [id number] [place] [address] 08 Sep, 2013 [facility] [address] [id number] [place] [address] 08 Sep, 2013 [facility] [address] [id number] [place] [address] 08 Sep, 2013 [facility] [address] [id number] [place] [address] 08 Sep, 2013 [facility] [address] [id number] [place] [address] 08 Sep, 2013 [facility] [address] [id number] [place] [address] 08 Sep, 2013 [facility] [address] [id number] [place] [address] 04 Sep, 2013 [facility] [address] [id number] [place] [address] 04 Sep, 2013 [facility] [address] [id number] [place] [address] Nov, [facility] [address] [id number] [place] [address] Nov, [facility] [address] [facility] [id number] [place] [address] Nov, [facility] [address] [id number] [place] [address] Oct, [facility] [address] [facility] [id number] [place] [address] Oct, [facility] [address] [id number] [place] [address] Oct, [facility] [address] [id number] [place] [address] Oct, [facility] [address] [id number] [place] [address] Oct, [facility] [address] [id number] [place] [address] Oct, [facility] [address] [id number] [place] [address] Oct, [facility] [address] [id number] [place] [address] Oct, [facility] [address] [id number] [place] [address] Oct, [facility] [address] [id number] [place] [address] Oct, [facility] [address] [id number] [place] [address] Oct, [facility] [address] [id number] [place] [address] Oct, [facility] [address] [id number] [place] [address] Oct, [facility] [address] [id number] [place] [address] Oct, [facility] [address] [facility] [id number] [place] [address] Sep, 2013 [facility] [address] [facility] [id number] [place] [address] Sep, 2013 [facility] [address] [facility] [id number] [place] [address] Sep, 2013 [facility] [address] [facility] [id number] [place] [address] Sep, 2013 [facility] [address] [facility] [id number] [place] [address] Sep, 2013 [facility] [address] [id number] [place] [address] Sep, 2013 [facility] [address] [id number] [place] [address] Sep, [facility] [address] [id number] [place] [address] Sep, [facility] [address] [facility] [id number] [place] [address] Aug, [facility] [address] [id number] [place] [address] Aug, [facility] [address] [id number] [place] [address] Aug, [facility] [address] [id number] [place] [address] Aug, [facility] [address] [facility] [id number] [place] [address] Aug, [facility] [address] [facility] [id number] [place] [address] Aug, [facility] [address] [id number] [place] [address] Aug, [facility] [address] [id number] [place] [address] Aug, [facility] [address] [id number] [place] [address] July, [facility] [address] [id number] [place] [address] July, [facility] [address] [id number] [place] [address] July, [facility] [address] [id number] [place] [address] July, [facility] [address] [id number] [place] [address] July, [facility] [address] [id number] [place] [address] July, [facility] [address] [id number] [place] [address] July, [facility] [address] [id number] [place] [address] July, [facility] [address] [id number] [place] [address] Jun, [facility] [address] [id number] [place] [address] Jun, [facility] [address] [id number] [place] [address] Jun, [facility] [address] [id number] [place] [address] Jun, [facility] [address] [id number] [place] [address] Jun, [facility] [address] [id number] [place] [address] Jun, [facility] [address] [id number] [place] [address] Jun, [facility] [address] [id number] [place] [address] Jun, [facility] [address] [id number] [place] [address] Jun, [facility] [address] [facility] [id number] [place] [address] Jun, [facility] [address] [facility] [id number] [place] [address] Jun, [facility] [address] [facility] [id number] [place] [address] Jun, [facility] [address] [id number] [place] [address] May, [facility] [address] [facility] [id number] [place] [address] May, [facility] [address] [facility] [id number] [place] [address] May, [facility] [address] [id number] [place] [address] May, [facility] [address] [id number] [place] [address] May, [facility] [address] [id number] [place] [address] May, [facility] [address] [id number] [place] [address] May, [facility] [address] [id number] [place] [address] May, [facility] [address] [id number] [place] [address] May, [facility] [address] [id number] [place] [address] May, [facility] [address] [facility] [id number] [place] [address] May, [facility] [address] [id number] [place] [address] May, [facility] [address] [id number] [place] [address] 10 May, 2013 [facility] [address] [id number] [place] [address] May, [facility] [address] [facility] [id number] [place] [address] Apr, [facility] [address] [facility] [id number] [place] [address] Apr, [facility] [address] [id number] [place] [address] Apr, [facility] [address] [id number] [place] [address] Apr, [facility] [address] [facility] [id number] [place] [address] Apr, [facility] [address] [id number] [place] [address] Apr, [facility] [address] [id number] [place] [address] Mar, [facility] [address] [id number] [place] [address] Mar, [facility] [place] [facility] [address] [id number] [place] [address] Mar, [facility] [place] [facility] [address] [id number] [place] [address] Mar, [facility] [place] [facility] [address] [id number] [place] [address] Mar, [facility] [place] [facility] [address] [id number] [place] [address] Mar, [facility] [place] [facility] [address] [id number] [place] [address] Mar, [facility] [place] [facility] [address] [id number] [place] [address] Mar, [facility] [place] [facility] [address] [id number] [place] [address] Mar, [facility] [place] [facility] [address] [id number] [place] [address] Mar, [facility] [place] [facility] [address] [id number] [place] [address] 07 Mar, 2013 [facility] [place] [facility] [address] [id number] [place] [address] Mar, [facility] [place] [facility] [address] [id number] [place] [address] Mar, [facility] [place] [facility] [address] [id number] [place] [address] Mar, [facility] [place] [facility] [address] [id number] [place] [address] Feb, [facility] [place] [facility] [address] [id number] [place] [address] Feb, [facility] [place] [facility] [address] [id number] [place] [address] Feb, [facility] [place] [facility] [address] [id number] [place] [address] Feb, [facility] [place] [facility] [address] [id number] [place] [address] Feb, [facility] [place] [facility] [address] [id number] [place] [address] Feb, [facility] [place] [facility] [address] [id number] [place] [address] Feb, [facility] [place] [facility] [address] [id number] [place] [address] Feb, [facility] [place] [facility] [address] [id number] [place] [address] Feb, [facility] [place] [facility] [address] [id number] [place] [address] Feb, [facility] [place] [facility] [address] [id number] [place] [address] Feb, [facility] [place] [facility] [address] [id number] [place] [address] Feb, [facility] [place] [facility] [address] [id number] [place] [address] Feb, [facility] [place] [facility] [address] [id number] [place] [address] 05 Feb, 2012 [facility] [place] [facility] [address] [id number] [place] [address] 05 Feb, 2012 [facility] [place] [facility] [address] [id number] [place] [address] 05 Feb, 2012 [facility] [place] [facility] [address] [id number] [place] [address] 24 Dec, 2012 [facility] [place] [facility] [address] [id number] [place] [address] 24 Dec, 2012 [facility] [place] [facility] [address] [id number] [place] [address] 16 Dec, 2012 [facility] [place] [facility] [address] [id number] [place] [address] 16 Dec, 2012 [facility] [place] [facility] [address] [id number] [place] [address] 16 Dec, 2012 [facility] [place] [facility] [address] [id number] [place] [address] 16 Dec, 2012 [facility] [place] [facility] [address] [id number] [place] [address] 14 Dec, 2012 [facility] [place] [facility] [address] [id number] [place] [address] 14 Dec, 2012 [facility] [place] [facility] [address] [id number] [place] [address] 10 Dec, 2012 [facility] [place] [facility] [address] [id number] [place] [address] 10 Dec, 2012 [facility] [place] [facility] [address] [id number] [place] [address] 10 Dec, 2012 [facility] [place] [facility] [address] [id number] [place] [address] 10 Dec, 2012 [facility] [place] [facility] [address] [id number] [place] [address] 03 Dec, 2012 [facility] [place] [facility] [address] [id number] [place] [address] 25 Nov, 2012 [facility] [place] [facility] [address] [id number] [place] [address] 20 Nov, 2012 [facility] [place] [facility] [address] [facility] [id number] [place] [address] 18 Nov, 2012 [facility] [place] [facility] [address] [id number] [place] [address] 16 Nov, 2012 [facility] [place] [facility] [address] [facility] [id number] [place] [address] 12 Nov, 2012 [facility] [place] [facility] [address] [facility] [id number] [place] [address] 11 Nov, 2012 [facility] [place] [facility] [address] [id number] [place] [address] 05 Nov, 2012 [facility] [place] [facility] [address] [id number] [place] [address] 15 Oct, 2012 [facility] [place] [facility] [address] [id number] [place] [address] Oct, [facility] [place] [facility] [address] [facility] [id number] [place] [address] 24 Sep, 2012 [facility] [place] [facility] [address] [id number] [place] [address] Sep, [facility] [place] [facility] [address] [id number] [place] [address] Sep, [facility] [place] [facility] [address] [id number] [place] [address] 17 Sep, 2012 [facility] [place] [facility] [address] [facility] [id number] [place] [address] 15 Sep, 2012 [facility] [place] [facility] [address] [id number] [place] [address] Sep, [facility] [place] [facility] [address] [facility] [id number] [place] [address] 08 Sep, 2012 [facility] [place] [facility] [address] [id number] [place] [address] Aug, [facility] [place] [facility] [address] [id number] [place] [address] 18 Aug, 2012 [facility] [place] [facility] [address] [facility] [id number] [place] [address] 16 Aug, 2012 [facility] [place] [facility] [address] [id number] [place] [address] 13 Aug, 2012 [facility] [place] [facility] [address] [id number] [place] [address] Aug, [facility] [place] [facility] [address] [id number] [place] [address] Aug, [facility] [place] [facility] [address] [id number] [place] [address] Aug, [facility] [place] [facility] [address] [id number] [place] [address] Aug, [facility] [place] [facility] [address] [id number] [place] [address] July, [facility] [place] [facility] [address] [id number] [place] [address] July, [facility] [place] [facility] [address] [facility] [id number] [place] [address] July, [facility] [place] [facility] [address] [facility] [id number] [place] [id number] July, [facility] [place] [facility] [address] [id number] [place] [address] July, [facility] [place] [facility] [address] [id number] [place] [address] Jun, [facility] [place] [facility] [address] [id number] [place] [address] May, [facility] [place] [facility] [address] [id number] [place] [address] May, [facility] [place] [facility] [address] [id number] [place] [address] May, [facility] [place] [facility] [address] [id number] [place] [address] Apr, [facility] [address] [id number] [place] [address] Apr, [facility] [address] [id number] [place] [address] Apr, [facility] [address] [id number] [place] [address] Mar, [facility] [place] [facility] [address] [id number] [place] [address] Mar, [facility] [place] [facility] [address] [id number] [place] [address] Mar, [facility] [address] [id number] [place] [address] Mar, [facility] [place] [facility] [address] [id number] [place] [address] Mar, [facility] [id number] [place] [address] Mar, [facility] [address] [id number] [place] [address] Mar, [facility] [address] [id number] [place] [address] Feb, [facility] [place] [facility] [address] [id number] [place] [address] Feb, [facility] [address] [id number] [place] [address] Feb, [facility] [place] [facility] [address] [id number] [place] [address] Feb, [facility] [place] [facility] [address] [id number] [place] [address] Feb, [facility] [place] [facility] [address] [id number] [place] [address] Feb, [facility] [place] [facility] [address] [id number] [place] [address] Feb, [facility] [place] [facility] [address] [id number] [place] [address] Feb, [facility] [place] [facility] [address] [id number] [place] [address] Jan, [facility] [place] [facility] [address] [id number] [place] [address] Jan, [facility] [place] [facility] [address] [id number] [place] [address] Jan, [facility] [place] [facility] [address] [id number] [place] [address] Jan, [facility] [place] [facility] [address] [id number] [place] [address] Jan, [facility] [place] [facility] [address] [id number] [place] [address] Jan, [facility] [place] [facility] [address] [id number] [place] [address] Jan, [facility] [place] [facility] [address] [id number] [place] [address] Jan, [facility] [place] [facility] [address] [id number] [place] [address] Jan, [facility] [place] [facility] [address] [id number] [place] [address] Jan, [facility] [place] [facility] [address] [id number] [place] [address] Jan, [facility] [place] [facility] [address] [id number] [place] [address] Jan, [facility] [place] [facility] [address] [id number] [place] [address] Jan, [facility] [place] [facility] [address] [id number] [place] [address] Jan, [facility] [place] [facility] [address] [id number] [place] [address] Jan, [facility] [place] [facility] [address] [id number] [place] [address] Jan, [facility] [place] [facility] [address] [facility] [id number] [place] [address] 17 Dec, 2011 [facility] [place] [facility] [address] [facility] [id number] [place] [address] 17 Dec, 2011 [facility] [place] [facility] [address] [facility] [id number] [place] [address] 16 Dec, 2011 [facility] [place] [facility] [address] [id number] [place] [address] 16 Dec, 2011 [facility] [place] [facility] [address] [id number] [place] [address] Dec, [facility] [place] [facility] [address] [facility] [id number] [place] [address] Dec, [facility] [place] [facility] [address] [id number] [place] [address] Dec, [facility] [place] [facility] [address] [id number] [place] [address] Dec, [facility] [place] [facility] [address] [id number] [place] [address] 08 Dec, 2011 [facility] [place] [facility] [address] [id number] [place] [address] 05 Dec, 2011 [facility] [place] [facility] [address] [id number] [place] [address] 18 Nov, 2011 [facility] [place] [facility] [address] [id number] [place] [address] 13 Nov, 2011 [facility] [place] [facility] [address] [id number] [place] [address] 24 Oct, 2011 [facility] [place] [facility] [address] [facility] [id number] [place] [address] Oct, [facility] [place] [facility] [address] [id number] [place] [address] Oct, [facility] [place] [facility] [address] [id number] [place] [address] 16 Oct, 2011 [facility] [place] [facility] [address] [id number] [place] [address] Oct, [facility] [place] [facility] [address] [id number] [place] [address] Oct, [facility] [place] [facility] [address] [id number] [place] [address] Oct, [facility] [place] [facility] [address] [id number] [place] [address] Sep, [facility] [place] [facility] [address] [id number] [place] [address] Aug, [facility] [place] [facility] [address] [id number] [place] [address] Aug, [facility] [place] [facility] [address] [id number] [place] [address] Aug, [facility] [place] [facility] [address] [id number] [place] [address] Aug, [facility] [place] [facility] [address] [id number] [place] [address] Aug, [facility] [place] [facility] [address] [id number] [place] [address] July, [facility] [place] [facility] [address] [id number] [place] [address] July, [facility] [place] [facility] [address] [id number] [place] [address] July, [facility] [place] [facility] [address] [id number] [place] [address] Jun, [facility] [place] [facility] [address] [id number] [place] [address] Jun, [facility] [place] [facility] [address] [id number] [place] [address] Jun, [facility] [place] [facility] [address] [id number] [place] [address] Jun, [facility] [place] [facility] [address] [id number] [place] [address] May, [facility] [place] [facility] [address] [id number] [place] [address] 30 May, 2011 [facility] [place] [facility] [address] [facility] [id number] [place] [address] 29 May, 2011 [facility] [place] [facility] [address] [id number] [place] [address] 28 May, 2011 [facility] [place] [facility] [address] [id number] [place] [address] 23 May, 2011 [facility] [place] [facility] [address] [id number] [place] [address] 22 May, 2011 [facility] [place] [facility] [address] [facility] [id number] [place] [address] 21 May, 2011 [facility] [place] [facility] [address] [id number] [place] [address] 19 May, 2011 [facility] [place] [facility] [address] [id number] [place] [address] 08 May, 2011 [facility] [place] [facility] [address] [id number] [place] [address] 05 May, 2011 [facility] [place] [facility] [address] [id number] [place] [address] 02 May, 2011 [facility] [place] [facility] [address] [id number] [place] [address] May, [facility] [place] [facility] [address] [id number] [place] [address] 31 Mar, 2011 [facility] [place] [facility] [address] [id number] [place] [address] Mar, [facility] [place] [facility] [address] [id number] [place] [address] Feb, [facility] [place] [facility] [address] [id number] [place] [address] Feb, [facility] [place] [facility] [address] [id number] [place] [address] Feb, [facility] [place] [facility] [address] [id number] [place] [address] 15 Feb, 2011 [facility] [place] [facility] [address] [id number] [place] [address] 13 Feb, 2011 [facility] [place] [facility] [address] [id number] [place] [address] Feb, [facility] [place] [facility] [address] [id number] [place] [address] Feb, [facility] [place] [facility] [address] [id number] [place] [address] Jan, [facility] [place] [facility] [address] [id number] [place] [address] Jan, [facility] [place] [facility] [address] [id number] [place] [address] Jan, [facility] [place] [facility] [address] [id number] [place] [address] Jan, [facility] [place] [facility] [id number] [place] [address] Jan, [facility] [place] [facility] [address] [id number] [place] [address] Jan, [facility] [place] [facility] [address] [id number] [place] [address] Dec, [facility] [place] [facility] [address] [id number] [place] [address] Dec, [facility] [place] [facility] [address] [id number] [place] [address] Dec, [facility] [place] [facility] [address] [id number] [place] [address] July, [facility] [place] [facility] [address] [id number] [place] [address] July, [facility] [place] [facility] [id number] [place] [address] 08 Feb, 2010 [facility] [place] [facility] [address] [id number] [place] [address] Jan, [facility] [place] [facility] [address] [id number] [place] [address] Dec, [facility] [place] [facility] [address] [id number] [place] [address] Dec, [facility] [place] [facility] [address] [id number] [place] [address] Sep, [facility] [place] [facility] [address] [id number] [place] [address] Aug, [facility] [place] [facility] [address] [id number] [place] [address] Jun, [facility] [place] [facility] [address] [id number] [place] [address] Jun, [facility] [place] [facility] [address] [id number] [place] [address] Jan, [facility] [place] [facility] [address] [id number] [place] [address] Jan, [facility] [id number] [place] [address] Jan, [facility] [address] [id number] [place] [address] Jan, [facility] [address] [id number] [place] [address] 29 Dec, 2008 [facility] [address] [id number] [place] [address] Dec, [facility] [address] [id number] [place] [address] Dec, [facility] [address] [id number] [place] [address] Nov, [facility] [address] [id number] [place] [address] July, [facility] [address] [id number] [place] [address] May, [facility] [address] [id number] [place] [address] Apr, [facility] [address] [id number] [place] [address] Feb, [facility] [address] [facility] [id number] [place] [address] Dec, IMMUNIZATIONS No Known Immunizations SOCIAL HISTORY Never Assessed REASON FOR VISIT PLAN OF CARE VITAL SIGNS Height 62 in 2013-05-03 Weight 205.9 lbs 2013-05-03 Temperature 98.4 degrees Fahrenheit 2013-05-03 Heart Rate 74 bpm 2013-05-03 Respiratory Rate 18 2013-05-03 Blood pressure systolic 124 mmHg 2013-05-03 Blood pressure diastolic 70 mmHg 2013-05-03 MEDICATIONS Unknown Medications RESULTS No Results PROCEDURES [...]
--- OUTSIDE RECORDS SUMMARY | 2019-06-22 19:38 | XMS REPORT ---
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 Active 858704991 Problem Diabetes E11.9 Active 246181749 Problem Type 2 diabetes mellitus with complication E11.8 Active 726397616 Problem Post laminectomy syndrome M96.1 Acti ve 74138505 Problem Bipolar 1 disorder F31.9 Active 3 98565920 Problem New daily persistent headache G44.52 Active 306124349 Problem Type 2 diabetes mellitus with hyperglycemia E11.65 Active 80032258 Problem Other chronic pain G89.29 Active 8 5717744 Problem Essential hypertension I10 Active 34390391 Problem Acute bilateral low back pain with right-sided sciatica M54.41 Active 292906728 Problem Bipolar disorder, in partial remission, most rec ent episode manic F31.73 Active 50744656 Problem Seasonal allergic rhinitis due to pollen J30.1 Active 36326697 Problem Hyperlipidemia, unspecified E78.5 Ac tive 28670824 Problem Eye exam normal Z01.00 Active 2438 15498 Problem Extreme poverty Z59.5 Active 1140 3006 Problem Lumbago with sciatica, left side M54.42 Active 483476266 Problem Hypertriglyceridemia E78.1 Active 030207190 Problem Insulin long-term use Z79.4 Active 774784039 Problem Rhinosinusitis J32.9 Active 37794 000 ALLERGIES No Information ENCOUNTERS Encounter Location Date Diagnosis [facility] [address] [address] 08 Aug, 2019 [facility] [address] [address] 07 Jun, 2019 [facility] [address] [address] May, [facility] [address] [address] May, [facility] [address] [address] May, [facility] [address] [address] May, Borderline intellectual functioning R41. 83 [place] [address] [address] 09 May, 2019 Type 2 diabetes mellitus with complicati on E11.8 [place] [address] [address] 09 May, 2019 Bipolar 1 disorder F31.9 ; Type 2 diabet es mellitus with complication E11.8 ; Pain of right thumb M79.644 ; Extreme poverty Z59.5 and Low back pain M54.5 [place] [address] [address] 09 May, 2019 [facility] [address] [address] Apr, Bipolar 1 disorder F31.9 ; Borderline in tellectual functioning R41.83 and Extreme poverty Z59.5 [facility] [address] [facility] [id number] [address] [place] [address] Apr, Seasonal allergic rhinitis d ue to pollen J30.1 [facility] [address] [address] Apr, Essential hypertension I10 and Diabetes E11.9 [place] [address] [address] Apr, [place] [address] [address] Mar, Bipolar 1 disorder F31.9 ; Borderline in tellectual functioning R41.83 and Extreme poverty Z59.5 [place] [address] [address] Mar, Exercise counseling Z71.82 [place] [address] [address] Mar, [place] [address] [address] Mar, Bipolar disorder, in partial remission, most recent episode manic F31.73 and 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 [place] [address] [address] Mar, [place] [address] [address] Mar, Exercise counseling Z71.82 [place] [address] [address] Feb, Bipolar 1 disorder F31.9 ; Borderline in tellectual functioning R41.83 and Extreme poverty Z59.5 [place] [address] [address] Feb, [place] [address] [address] Feb, Type 2 diabetes mellitus with complicati on E11.8 [facility] [address] [facility] [id number] [address] [address] Feb, Acute low back pain without sciatica, unspecified back pain laterality M54.5 [place] [address] [address] Feb, Bipolar 1 disorder F31.9 ; Borderline in tellectual functioning R41.83 and Extreme poverty Z59.5 [place] [address] [address] Jan, Bipolar 1 disorder F31.9 ; Borderline in tellectual functioning R41.83 and Extreme poverty Z59.5 [facility] [address] [address] Jan, [facility] [address] [address] Jan, Type 2 diabetes mellitus with complicati on E11.8 [facility] [address] [address] Jan, Type 2 diabetes mellitus with complicati on E11.8 ; Dysuria R30.0 and Diarrhea, unspecified type R19.7 [place] [address] [address] Jan, Bipolar 1 disorder F31.9 ; Borderline in tellectual functioning R41.83 and Extreme poverty Z59.5 [place] [address] [address] Dec, [facility] [address] [address] Dec, [facility] [address] [address] Dec, [facility] [address] [address] Dec, [facility] [address] [address] Dec, Rhinosinusitis J32.9 [facility] [address] [address] Dec, [facility] [address] [address] Dec, Bipolar 1 disorder F31.9 ; Borderline in tellectual functioning R41.83 and Extreme poverty Z59.5 [facility] [address] [address] Dec, Type 2 diabetes mellitus with complicati on E11.8 and Type 2 diabetes mellitus with hyperglycemia E11.65 [place] [address] [address] Dec, [place] [address] [address] Dec, Type 2 diabetes mellitus with complicati on E11.8 ; Insulin long-term use Z79.4 ; Hyperglycemia R73.9 and Yeast infection B37.9 [place] [address] [address] Dec, Encounter for immunization Z23 [place] [address] [address] Nov, [place] [address] [address] Nov, Bipolar 1 disorder F31.9 ; Borderline in tellectual functioning R41.83 and Extreme poverty Z59.5 [place] [address] [address] Nov, [place] [address] [address] Nov, [place] [address] [address] Nov, Borderline intellectual functioning R41. 83 and Bipolar disorder, in partial remission, most recent episode manic F31.73 [facility] [address] [place] [id number] [place] [address] Nov, Epigastric abdominal pain R1 0.13 [place] [address] [address] Nov, Bipolar 1 disorder F31.9 ; Borderline in tellectual functioning R41.83 and Extreme poverty Z59.5 [facility] [place] [id number] [address] [place] [address] Oct, Dysuria R30.0 and Acute cyst itis without hematuria N30.00 [facility] [address] [place] [address] [address] Oct, [facility] [address] [address] Oct, [facility] [address] [address] Oct, Bipolar 1 disorder F31.9 ; Borderline in tellectual functioning R41.83 and Extreme poverty Z59.5 [facility] [address] [address] Oct, [facility] [address] [address] Oct, [facility] [address] [address] Oct, Bipolar disorder, in partial remission, most recent episode manic F31.73 and 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 [place] [address] [address] Oct, Bipolar 1 disorder F31.9 ; Borderline in tellectual functioning R41.83 and Extreme poverty Z59.5 [facility] [address] [address] Oct, Diarrhea, unspecified type R19.7 [facility] [address] [id number] [place] [id number] Sep, Dental examination Z01.20 and Dental car ies K02.9 [facility] [address] [facility] [id number] [address] [address] Sep, Mouth pain K13.79 [facility] [address] [address] Sep, [facility] [address] [address] Sep, Bipolar 1 disorder F31.9 ; Borderline in tellectual functioning R41.83 and Extreme poverty Z59.5 [facility] [address] [address] Sep, [place] [address] [address] Sep, [place] [address] [address] Sep, Diabetes E11.9 ; Hyperglycemia R73.9 ; L eliseo term current use of insulin Z79.4 and Diarrhea, unspecified type R19.7 [place] [address] [address] Sep, [place] [address] [address] Sep, Bipolar 1 disorder F31.9 ; Borderline in tellectual functioning R41.83 and Extreme poverty Z59.5 [place] [address] [address] Sep, [place] [address] [address] Sep, [place] [address] [address] Aug, Bipolar 1 disorder F31.9 ; Borderline in tellectual functioning R41.83 and Extreme poverty Z59.5 [place] [address] [address] Aug, Exercise counseling Z71.82 [place] [address] [address] Aug, Bipolar 1 disorder F31.9 ; Borderline in tellectual functioning R41.83 and Extreme poverty Z59.5 [place] [address] [address] Aug, Borderline intellectual functioning R41. 83 and Bipolar disorder, in partial remission, most recent episode manic F31.73 [place] [address] [address] Aug, Low back pain M54.5 [place] [address] [address] Aug, Borderline intellectual functioning R41. 83 and Bipolar disorder, in partial remission, most recent episode manic F31.73 [place] [address] [address] July, Acute superficial gastritis without hemo rrhage K29.00 ; Low back pain M54.5 and Other chronic pain G89.29 [place] [address] [address] July, [place] [address] [address] July, [place] [address] [address] Jun, [facility] [address] [facility] [id number] [address] [place] [address] Jun, Bilateral lower extremity ed epi R60.0 [place] [address] [address] Jun, Borderline intellectual functioning R41. 83 and Bipolar disorder, in partial remission, most recent episode manic F31.73 [place] [address] [address] Jun, [place] [address] [address] May, Bronchitis J40 [place] [address] [address] May, Screening for breast cancer Z12.31 and E ncounter for immunization Z23 [place] [address] [address] May, Bipolar 1 disorder F31.9 ; Borderline in tellectual functioning R41.83 and Extreme poverty Z59.5 [place] [address] [address] Apr, [place] [address] [address] 07 Apr, 2018 Bipolar 1 disorder F31.9 ; Borderline in tellectual functioning R41.83 and Extreme poverty Z59.5 [place] [address] [address] 05 Apr, 2018 Irritable bowel syndrome with diarrhea K 58.0 and Dental abscess K04.7 [place] [address] [address] Mar, [place] [address] [place] [address] Mar, [place] [address] [address] Mar, Bipolar 1 disorder F31.9 ; Borderline in tellectual functioning R41.83 and Extreme poverty Z59.5 [place] [address] [address] Mar, Hypertriglyceridemia E78.1 [place] [address] [address] Mar, Borderline intellectual functioning R41. 83 and Bipolar disorder, in partial remission, most recent episode manic F31.[address] [address] Mar, Bipolar 1 disorder F31.9 ; Borderline in tellectual functioning R41.83 and Extreme poverty Z59.5 [place] [address] [address] Feb, Generalized abdominal pain R10.84 and Di arrhea, unspecified type R19.7 [place] [address] [address] Feb, [place] [id number] Feb, Myalgia M79.10 and Nausea R11.0 [place] [address] [address] Feb, Bipolar 1 disorder F31.9 ; Borderline in tellectual functioning R41.83 and Extreme poverty Z59.5 [place] [address] [address] Feb, [place] [address] [place] [address] Feb, Diabetes E11.9 ; Hyperglycemia R73.9 and Diarrhea, unspecified R19.7 [place] [address] [address] Feb, Diarrhea, unspecified type R19.7 ; Abdom inal pain R10.9 and Encounter for immunization Z23 [place] [address] [address] Jan, Bipolar 1 disorder F31.9 ; Borderline in tellectual functioning R41.83 and Extreme poverty Z59.5 [place] [address] [address] Dec, Bipolar 1 disorder F31.9 ; Borderline in tellectual functioning R41.83 and Extreme poverty Z59.5 [place] [address] [address] Nov, [address] [address] Nov, Hypertriglyceridemia E78.1 [place] [address] [address] Nov, Bipolar 1 disorder F31.9 ; Borderline in tellectual functioning R41.83 and Extreme poverty Z59.5 [place] [address] [address] Nov, Type 2 diabetes mellitus with complicati on E11.8 [place] [address] [address] Nov, Borderline intellectual functioning R41. 83 and Bipolar disorder, in partial remission, most recent episode manic F31.73 [place] [address] [address] Nov, Type 2 diabetes mellitus with complicati on E11.8 [place] [address] [address] 11 Nov, 2017 Bipolar 1 disorder F31.9 ; Borderline in tellectual functioning R41.83 and Extreme poverty Z59.5 [place] [address] [address] Nov, Type 2 diabetes mellitus with complicati on E11.8 ; Pain of left upper arm M79.622 ; Pain in right upper arm M79.621 ; Hyperglycemia R73.9 ; Lumbago with sciatica, left side M54.42 and Other chronic pain G89.[address] [address] Oct, Bipolar 1 disorder F31.9 ; Borderline in tellectual functioning R41.83 and Extreme poverty Z59.[address] [address] Oct, Type 2 diabetes mellitus with hyperglyce didi E11.65 ; nursing home current use of insulin Z79.4 and Other acute gastritis without hemorrhage K29.[address] [address] Oct, Bipolar 1 disorder F31.9 ; Borderline in tellectual functioning R41.83 and Extreme poverty Z59.[address] [address] Sep, Diarrhea, unspecified R19.7 and Vomiting , unspecified R11.[address] [address] Aug, Type 2 diabetes mellitus with complicati on E11.[address] [address] Aug, [address] [address] Aug, Bipolar 1 disorder F31.9 ; Borderline in tellectual functioning R41.83 and Extreme poverty Z59.5 [place] [address] [address] Aug, Borderline intellectual functioning R41. 83 and Bipolar disorder, in partial remission, most recent episode manic F31.73 [place] [address] [address] Aug, Bipolar 1 disorder F31.9 [place] [address] [address] Aug, [place] [address] [address] Aug, [place] [address] [address] Aug, Bipolar 1 disorder F31.9 ; Borderline in tellectual functioning R41.83 and Extreme poverty Z59.5 [place] [address] [address] July, Type 2 diabetes mellitus with complicati on E11.8 [place] [address] [address] July, Bipolar 1 disorder F31.9 ; Borderline in tellectual functioning R41.83 and Extreme poverty Z59.5 [place] [address] [address] Jun, Bipolar 1 disorder F31.9 ; Borderline in tellectual functioning R41.83 and Extreme poverty Z59.5 [place] [address] [address] Jun, Bipolar 1 disorder F31.9 ; Borderline in tellectual functioning R41.83 and Extreme poverty Z59.5 [place] [address] [address] Jun, Bipolar 1 disorder F31.9 ; Borderline in tellectual functioning R41.83 and Extreme poverty Z59.5 [place] [address] [address] May, Urinary tract infection without hematuri a, site unspecified N39.0 [place] [address] [place] [address] May, Bipolar 1 disorder F31.9 ; Borderline in tellectual functioning R41.83 and Extreme poverty Z59.5 [place] [address] [address] Apr, Diabetes E11.9 and Breast cancer screeni ng Z12.31 [place] [address] [address] 20 Apr, 2017 Bipolar 1 disorder F31.9 and 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 [place] [address] [place] [id number] Mar, Bipolar 1 disorder F31.9 ; Borderline in tellectual functioning R41.83 and Extreme poverty Z59.5 [place] [address] [address] Mar, New daily persistent headache G44.52 ; L eg pain 729.5 and History of carpal tunnel release Z98.890 [place] [address] [address] Mar, Hyperlipidemia, unspecified E78.5 [place] [address] [address] Mar, Bipolar 1 disorder F31.9 ; Borderline in tellectual functioning R41.83 and Extreme poverty Z59.5 [place] [address] [address] Feb, Bipolar 1 disorder F31.9 ; Borderline in tellectual functioning R41.83 and Extreme poverty Z59.5 [place] [address] [address] Feb, Diabetes E11.9 [place] [address] [address] Feb, Viral syndrome B34.9 [place] [address] [address] Jan, Other viral agents as the cause of disea ses classified elsewhere B97.89 and Acute upper respiratory infection, unspecified J06.9 [place] [address] [address] 16 Jan, 2017 Bipolar 1 disorder F31.9 and 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 [place] [address] [address] Jan, Bipolar 1 disorder F31.9 ; Borderline in tellectual functioning R41.83 and Extreme poverty Z59.5 [place] [address] [address] Dec, Diabetes E11.9 [place] [address] [address] Dec, Diabetes E11.9 and Encounter for immuniz ation Z23 [place] [address] [address] Dec, Bipolar 1 disorder F31.9 ; Borderline in tellectual functioning R41.83 and Extreme poverty Z59.5 [place] [address] [address] Dec, Back pain M54.9 [place] [address] [address] 07 Nov, 2016 [place] [address] [address] Nov, Bipolar 1 disorder F31.9 ; Borderline in tellectual functioning R41.83 and Extreme poverty Z59.5 [place] [address] [address] 05 Nov, 2016 Bipolar 1 disorder F31.9 ; Borderline in tellectual functioning R41.83 and Extreme poverty Z59.5 [place] [address] [address] Oct, Borderline intellectual functioning R41. 83 and Bipolar 1 disorder F31.9 [place] [address] [address] Oct, Bipolar 1 disorder F31.9 ; Borderline in tellectual functioning R41.83 and Extreme poverty Z59.5 [place] [address] [address] Oct, Back pain M54.9 [place] [address] [address] Oct, Borderline intellectual functioning R41. 83 and Type 2 diabetes mellitus with complication E11.8 [place] [address] [address] Sep, Bipolar 1 disorder F31.9 ; Borderline in tellectual functioning R41.83 and Extreme poverty Z59.5 [place] [address] [address] Sep, Borderline intellectual functioning R41. 83 and Bipolar 1 disorder F31.9 [place] [address] [address] Sep, Bipolar 1 disorder F31.9 ; Borderline in tellectual functioning R41.83 and Extreme poverty Z59.5 [place] [address] [address] Aug, Diabetes E11.9 ; Hyperlipidemia, unspeci fied E78.5 and Lumbar radiculopathy M54.16 [place] [address] [address] 15 Aug, 2016 Bipolar 1 disorder F31.9 ; Borderline in tellectual functioning R41.83 and Extreme poverty Z59.5 [place] [address] [address] Aug, [place] [address] [address] 08 Aug, 2016 [place] [address] [address] Aug, [facility] [address] [place] [id number] [place] [address] July, [facility] [address] [address] July, Acute bilateral low back pain with right -sided sciatica M54.41 [facility] [address] [address] July, Bipolar 1 disorder F31.9 ; Borderline in tellectual functioning R41.83 and Extreme poverty Z59.5 [place] [address] [place] [id number] [place] [address] July, Back pain M54.9 and Diabetes E11.9 [place] [address] [address] Jun, Bipolar 1 disorder F31.9 ; Borderline in tellectual functioning R41.83 and Extreme poverty Z59.5 [place] [address] [address] Jun, Bipolar 1 disorder F31.9 ; Borderline in tellectual functioning R41.83 and Extreme poverty Z59.5 [place] [address] [place] [id number] [place] [address] May, Visit for pelvic exam Z01.419 ; Acute va ginitis N76.0 and Diabetes E11.9 [place] [address] [place] [id number] [place] [address] May, Bipolar 1 disorder F31.9 ; Borderline in tellectual functioning R41.83 and Extreme poverty Z59.5 [place] [address] [address] May, [place] [address] [address] May, [facility] [address] [address] May, Bipolar 1 disorder F31.9 ; Borderline in tellectual functioning R41.83 and Extreme poverty Z59.5 [place] [address] [address] May, Hyperlipidemia, unspecified E78.5 [place] [address] [address] 13 Apr, 2016 Breast cancer screening Z12.39 [place] [address] [address] Mar, [place] [address] [address] Mar, Bipolar disorder, current episode mixed, unspecified F31.60 [place] [address] [address] Mar, Bipolar 1 disorder F31.9 ; Borderline in tellectual functioning R41.83 and Extreme poverty Z59.5 [place] [address] [address] Feb, Acute nasopharyngitis J00 [place] [address] [address] 27 Feb, 2016 Dental examination Z01.20 [place] [address] [address] Feb, Dental cavities K02.9 and Chronic period ontitis, unspecified K05.30 [place] [address] [address] Feb, Low back pain M54.5 and Extreme poverty Z59.5 [place] [address] [address] Feb, [place] [address] [address] 05 Feb, 2016 Routine gynecological examination V72.31 ; Breast cancer screening Z12.39 and Herpes simplex type 1 infection B00.9 [place] [address] [address] Feb, Diabetes E11.9 [place] [address] [place] [id number] [place] [address] 01 Feb, 2016 Encounter for dental examination and leti aning without abnormal findings Z01.20 [place] [address] [address] Jan, Hyperlipidemia, unspecified E78.5 [place] [address] [address] Jan, Bipolar 1 disorder F31.9 ; Borderline in tellectual functioning R41.83 and Extreme poverty Z59.5 [place] [address] [address] 18 Jan, 2016 Diabetes E11.9 [place] [address] [address] 17 Jan, 2016 Diabetes E11.9 [place] [address] [address] 14 Dec, 2015 Bipolar 1 disorder F31.9 ; Borderline in tellectual functioning R41.83 and Extreme poverty Z59.5 [place] [address] [address] 13 Dec, 2015 Bipolar disorder, current episode mixed, unspecified F31.60 and 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 [place] [address] [address] 16 Nov, 2015 Bipolar 1 disorder F31.9 ; Borderline in tellectual functioning R41.83 ; Extreme poverty Z59.5 and Non compliance with medical treatment Z91.19 [place] [address] [address] Oct, [place] [address] [address] Oct, Dental caries K02.9 [place] [address] [address] Oct, Low back pain M54.5 and Other chronic pa in G89.29 [place] [address] [address] Oct, Bipolar 1 disorder F31.9 ; Borderline in tellectual functioning R41.83 ; Extreme poverty Z59.5 and Non compliance with medical treatment Z91.19 [place] [address] [address] Oct, [place] [address] [address] Oct, [place] [address] [address] Oct, Dental examination Z01.20 [place] [address] [address] Oct, Bipolar 1 disorder F31.9 ; Borderline in tellectual functioning R41.83 ; Extreme poverty Z59.5 and Non compliance with medical treatment Z91.19 [place] [address] [address] Oct, [place] [address] [address] Sep, Type 2 diabetes mellitus with complicati on E11.8 [place] [address] [address] Sep, Bipolar disorder, current episode mixed, unspecified F31.60 [place] [address] [address] Sep, Bipolar disorder, current episode mixed, unspecified F31.60 [place] [address] [address] Sep, Bipolar disorder, in partial remission, most recent episode manic F31.73 ; 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 ; Extreme poverty Z59.5 and Non compliance with medical treatment Z91.19 [place] [address] [address] Aug, Bipolar disorder, in partial remission, most recent episode manic F31.73 ; 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 ; Extreme poverty Z59.5 and Non compliance with medical treatment Z91.19 [place] [address] [address] Aug, Bipolar disorder, in partial remission, most recent episode manic F31.73 ; 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 ; Extreme poverty Z59.5 and Non compliance with medical treatment Z91.19 [place] [address] [address] Aug, [place] [address] [address] July, Bipolar disorder, in partial remission, most recent episode manic F31.73 ; 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 ; Extreme poverty Z59.5 and Non compliance with medical treatment Z91.19 [place] [address] [address] July, Bipolar disorder, current episode mixed, unspecified F31.60 [place] [address] [address] July, Bipolar disorder, in partial remission, most recent episode manic F31.73 ; 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 ; Extreme poverty Z59.5 and Non compliance with medical treatment Z91.19 [place] [address] [address] July, termite treater current use of opiate analgesi c Z79.891 and Chronic pain G89.29 [place] [address] [address] Jun, nursing home current use of opiate analgesi c Z79.891 and Bipolar 1 disorder F31.9 [place] [address] [address] Jun, [place] [address] [address] Jun, [place] [address] [address] Jun, [place] [address] [address] Jun, Bipolar disorder, in partial remission, most recent episode manic F31.73 ; 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 and Non compliance with medical treatment Z91.19 [place] [address] [address] May, Bipolar disorder, in partial remission, most recent episode manic F31.73 ; 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 and Non compliance with medical treatment Z91.19 [place] [address] [address] May, Bipolar disorder, in partial remission, most recent episode manic F31.73 [place] [address] [address] May, Diabetes E11.9 and Chronic pain G89.[address] [address] May, [address] [address] May, Bipolar disorder, in partial remission, most recent episode manic F31.73 ; Non compliance with medical treatment Z91.19 and 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 [place] [address] [address] May, Type 2 diabetes mellitus with complicati on E11.8 and Back pain M54.9 [place] [address] [address] May, Bipolar disorder, in partial remission, most recent episode manic F31.73 and Borderline intellectual functioning R41.[address] [address] Apr, [address] [address] Apr, [address] [address] Apr, [place] [address] [address] 09 Apr, 2015 Diabetes E11.9 ; Irritable bowel syndrom e with diarrhea K58.0 and Lumbar radiculopathy M54.16 [place] [address] [address] 02 Apr, 2015 Breast screening Z12.39 [place] [address] [place] [address] Apr, Bipolar disorder, in partial remission, most recent episode manic F31.73 ; Non compliance with medical treatment Z91.19 and 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 [place] [address] [address] Mar, Edema, unspecified type R60.9 and Type 2 diabetes mellitus with complication E11.8 [place] [address] [address] Mar, Bipolar disorder, in partial remission, most recent episode manic F31.73 ; Non compliance with medical treatment Z91.19 ; 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 and Extreme poverty Z59.5 [place] [address] [address] Mar, Bipolar disorder, current episode mixed, unspecified F31.60 ; 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 ; Extreme poverty Z59.5 and Generalized anxiety disorder F41.1 [place] [address] [address] Mar, Bipolar disorder, in partial remission, most recent episode manic F31.73 ; 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 and Extreme poverty Z59.5 [place] [address] [address] Feb, Bipolar disorder, in partial remission, most recent episode manic F31.73 ; 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 and Extreme poverty Z59.5 [place] [address] [address] Feb, Bipolar disorder, in partial remission, most recent episode manic F31.73 ; 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 and Extreme poverty Z59.5 [place] [address] [address] Feb, [place] [address] [address] Jan, Type 2 diabetes mellitus with complicati on E11.8 and Petechiae R23.3 [place] [address] [place] [address] Jan, Type 2 diabetes mellitus with complicati on E11.8 ; Edema, unspecified R60.9 ; Petechiae R23.3 and Diabetes E11.9 [place] [address] [address] Jan, Bipolar disorder, in partial remission, most recent episode manic F31.73 ; 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 and Extreme poverty Z59.5 [place] [address] [address] Jan, Bipolar disorder, in partial remission, most recent episode manic F31.73 ; 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 and Extreme poverty Z59.5 [place] [address] [address] Dec, Bipolar disorder, in partial remission, most recent episode manic F31.73 [place] [address] [address] Dec, Edema, due to unspecified malnutrition t ype, unspecified edema R60.9 and Essential hypertension I10 [place] [address] [address] Dec, Bipolar disorder, in partial remission, most recent episode manic F31.73 [place] [address] [address] Nov, Bipolar I disorder, most recent episode (or current) mixed, unspecified 296.60 [address] [place] [address] Nov, Stress incontinence, female 625.6 ; Back pain 724.5 and Leg pain 729.5 [facility] [address] [address] Nov, Generalized anxiety disorder 300.02 and Bipolar II disorder 296.89 [facility] [address] [address] Nov, Bipolar I disorder, most recent episode (or current) mixed, unspecified 296.60 [facility] [address] [address] Oct, [facility] [address] [address] Oct, [facility] [address] [address] Oct, [facility] [address] [address] Oct, Bipolar I disorder, most recent episode (or current) mixed, unspecified 296.60 [facility] [address] [address] Sep, Diabetes 250.00 [facility] [address] [address] Sep, Bipolar I disorder, most recent episode (or current) mixed, unspecified 296.60 [facility] [address] [address] Sep, [facility] [address] [address] Sep, [facility] [address] [address] Sep, Bipolar I disorder, most recent episode (or current) mixed, unspecified 296.60 [facility] [address] [address] Sep, Bipolar I disorder, most recent episode (or current) mixed, unspecified 296.60 [facility] [address] [place] [id number] [place] [address] Sep, [facility] [address] [address] Sep, Anxiety 300.00 ; Diabetes 250.00 and Hyp erlipidemia 272.4 [facility] [address] [address] Aug, [facility] [address] [address] Aug, [facility] [address] [address] Aug, [facility] [address] [address] Aug, Bipolar I disorder, most recent episode (or current) mixed, unspecified 296.60 [facility] [address] [address] Aug, Generalized anxiety disorder 300.02 and Bipolar II disorder 296.89 [facility] [address] [address] July, Bipolar I disorder, most recent episode (or current) mixed, unspecified 296.60 [facility] [address] [address] July, Cough 786.2 [facility] [address] [address] July, Bipolar I disorder, most recent episode (or current) mixed, unspecified 296.60 [facility] [address] [address] Jun, Diabetes 250.00 [facility] [address] [address] Jun, [facility] [address] [address] Jun, [facility] [address] [place] [address] May, [facility] [place] [facility] [address] [facility] [id number] [facility] [place] [address] May, [facility] [place] [facility] [address] [facility] [id number] [place] [address] May, [facility] [place] [facility] [address] [id number] [place] [address] May, [facility] [place] [facility] [address] [id number] [place] [address] May, [facility] [place] [facility] [address] [facility] [id number] [place] [address] May, [facility] [place] [facility] [address] [id number] [place] [address] Apr, [facility] [place] [facility] [address] [id number] [place] [address] Apr, [facility] [place] [facility] [address] [id number] [place] [address] Apr, [facility] [place] [facility] [address] [id number] [place] [address] Apr, [facility] [place] [facility] [address] [id number] [place] [address] Apr, [facility] [place] [facility] [address] [id number] [place] [address] Apr, [facility] [place] [facility] [address] [id number] [place] [address] Apr, [facility] [place] [facility] [address] [facility] [id number] [place] [address] Apr, [facility] [place] [facility] [address] [id number] [place] [address] Mar, [facility] [place] [facility] [address] [id number] [place] [address] Mar, [facility] [place] [facility] [address] [id number] [place] [address] Mar, [facility] [place] [facility] [address] [id number] [place] [address] Mar, [facility] [place] [facility] [address] [id number] [place] [address] Mar, [facility] [place] [facility] [address] [id number] [place] [address] Mar, [facility] [place] [facility] [address] [id number] [place] [address] Mar, [facility] [place] [facility] [address] [facility] [id number] [place] [address] Mar, [facility] [place] [facility] [address] [id number] [place] [address] Feb, [facility] [place] [facility] [address] [id number] [place] [address] Feb, [facility] [place] [facility] [address] [id number] [place] [address] Feb, [facility] [place] [facility] [address] [id number] [place] [address] Feb, [facility] [place] [facility] [address] [id number] [place] [address] Feb, [facility] [place] [facility] [address] [id number] [place] [address] Feb, [facility] [place] [facility] [address] [id number] [place] [address] Feb, [facility] [place] [facility] [address] [id number] [place] [address] Feb, [facility] [place] [facility] [address] [id number] [place] [address] Feb, [facility] [place] [facility] [address] [id number] [place] [address] Feb, [facility] [place] [facility] [address] [id number] [place] [address] Jan, [facility] [place] [facility] [address] [id number] [place] [address] Jan, [facility] [place] [facility] [address] [id number] [place] [address] Jan, [facility] [place] [facility] [address] [id number] [place] [address] Jan, [facility] [place] [facility] [address] [id number] [place] [address] Jan, [facility] [place] [facility] [address] [id number] [place] [address] Jan, [facility] [place] [facility] [address] [id number] [place] [address] Jan, [facility] [place] [facility] [address] [id number] [place] [address] Jan, [facility] [place] [facility] [address] [id number] [place] [address] Jan, [facility] [place] [facility] [address] [id number] [place] [address] Jan, [facility] [place] [facility] [address] [id number] [place] [address] Jan, [facility] [place] [facility] [address] [id number] [place] [address] Jan, [facility] [place] [facility] [address] [id number] [place] [address] Jan, [facility] [place] [facility] [address] [id number] [place] [address] Jan, [facility] [place] [facility] [address] [id number] [place] [address] Jan, [facility] [place] [facility] [address] [place] [id number] [place] [address] Dec, [facility] [place] [facility] [address] [id number] [place] [address] Dec, [facility] [place] [facility] [address] [id number] [place] [address] 16 Dec, 2013 [facility] [place] [facility] [address] [id number] [place] [address] 16 Dec, 2013 [facility] [place] [facility] [address] [id number] [place] [address] 09 Dec, 2013 [facility] [place] [facility] [address] [id number] [place] [address] 09 Dec, 2013 [facility] [place] [facility] [address] [id number] [place] [address] 07 Dec, 2013 [facility] [place] [facility] [address] [id number] [place] [address] 07 Dec, 2013 [facility] [place] [facility] [address] [id number] [place] [address] 25 Sep, 2013 [facility] [place] [facility] [address] [id number] [place] [address] 25 Sep, 2013 [facility] [place] [facility] [address] [id number] [place] [address] 10 Sep, 2013 [facility] [place] [facility] [address] [id number] [place] [address] 10 Sep, 2013 [facility] [place] [facility] [address] [id number] [place] [address] 08 Sep, 2013 [facility] [place] [facility] [address] [id number] [place] [address] 08 Sep, 2013 [facility] [place] [facility] [address] [id number] [place] [address] 08 Sep, 2013 [facility] [place] [facility] [address] [id number] [place] [address] 08 Sep, 2013 [facility] [place] [facility] [address] [id number] [place] [address] 08 Sep, 2013 [facility] [place] [facility] [address] [id number] [place] [address] 08 Sep, 2013 [facility] [place] [facility] [address] [id number] [place] [address] 04 Sep, 2013 [facility] [place] [facility] [address] [id number] [place] [address] 04 Sep, 2013 [facility] [place] [facility] [address] [id number] [facility] [place] [address] Nov, 2013 [facility] [place] [facility] [address] [id number] [place] [address] Nov, [facility] [place] [facility] [address] [facility] [id number] [facility] [place] [address] Nov, [facility] [place] [facility] [address] [id number] [place] [address] Oct, [facility] [place] [facility] [address] [id number] [place] [address] Oct, [facility] [place] [facility] [address] [id number] [place] [address] Oct, [facility] [place] [facility] [address] [id number] [place] [address] Oct, [facility] [place] [facility] [address] [id number] [place] [address] Oct, [facility] [place] [facility] [address] [facility] [id number] [place] [address] Oct, [facility] [place] [facility] [address] [id number] [place] [address] Oct, [facility] [place] [facility] [address] [id number] [place] [address] Oct, [facility] [place] [facility] [address] [id number] [place] [address] Oct, [facility] [place] [facility] [address] [id number] [place] [address] Oct, [facility] [place] [facility] [address] [id number] [place] [address] Oct, [facility] [place] [facility] [address] [facility] [id number] [place] [address] Oct, [facility] [place] [facility] [address] [id number] [place] [address] Oct, [facility] [place] [facility] [address] [id number] [facility] [place] [address] Oct, [facility] [place] [facility] [address] [facility] [id number] [facility] [place] [address] Sep, [facility] [place] [facility] [address] [facility] [id number] [place] [address] Sep, [facility] [place] [facility] [address] [id number] [place] [address] Sep, [facility] [place] [facility] [address] [facility] [id number] [place] [address] Sep, 2013 [facility] [place] [facility] [address] [facility] [id number] [place] [address] Sep, [facility] [place] [facility] [address] [id number] [place] [address] Sep, [facility] [place] [facility] [address] [id number] [place] [address] Sep, [facility] [place] [facility] [address] [id number] [place] [address] Sep, [facility] [place] [facility] [address] [id number] [place] [address] Aug, [facility] [place] [facility] [address] [id number] [place] [address] Aug, [facility] [place] [facility] [address] [id number] [place] [address] Aug, [facility] [place] [facility] [address] [id number] [place] [address] Aug, [facility] [place] [facility] [address] [id number] [place] [address] Aug, [facility] [place] [facility] [address] [id number] [place] [address] Aug, [facility] [place] [facility] [address] [id number] [place] [address] Aug, [facility] [place] [facility] [address] [id number] [place] [address] Aug, [facility] [place] [facility] [address] [id number] [place] [address] July, [facility] [place] [facility] [address] [id number] [place] [address] July, [facility] [place] [facility] [address] [id number] [place] [address] July, [facility] [place] [facility] [address] [id number] [place] [address] July, [facility] [place] [facility] [address] [id number] [place] [address] July, [facility] [place] [facility] [address] [id number] [place] [address] July, [facility] [place] [facility] [address] [id number] [place] [address] July, [facility] [place] [facility] [address] [id number] [place] [address] July, [facility] [place] [facility] [address] [id number] [place] [address] Jun, [facility] [place] [facility] [address] [id number] [place] [address] Jun, [facility] [place] [facility] [address] [id number] [place] [address] Jun, [facility] [place] [facility] [address] [id number] [place] [address] Jun, [facility] [place] [facility] [address] [id number] [place] [address] Jun, [facility] [place] [facility] [address] [id number] [place] [address] Jun, [facility] [place] [facility] [address] [id number] [place] [address] Jun, [facility] [place] [facility] [address] [id number] [place] [address] Jun, [facility] [place] [facility] [address] [id number] [place] [address] Jun, [facility] [place] [facility] [address] [facility] [id number] [facility] [place] [address] Jun, [facility] [place] [facility] [address] [facility] [id number] [place] [address] Jun, [facility] [place] [facility] [address] [facility] [id number] [place] [address] Jun, [facility] [place] [facility] [address] [facility] [id number] [facility] [place] [address] May, [facility] [place] [facility] [address] [facility] [facility] [id number] [facility] [address] May, [facility] [address] [id number] [place] [address] May, [facility] [address] [id number] [place] [address] May, [facility] [address] [id number] [place] [address] May, [facility] [address] [facility] [id number] [place] [address] May, [facility] [address] [id number] [place] [address] May, [facility] [address] [id number] [place] [address] May, [facility] [address] [id number] [place] [address] May, [facility] [address] [facility] [id number] [place] [address] May, [facility] [address] [id number] [place] [address] May, [facility] [address] [facility] [id number] [place] [address] May, [facility] [address] [id number] [place] [address] May, [facility] [address] [id number] [place] [address] May, [facility] [address] [facility] [id number] [place] [address] Apr, [facility] [address] [id number] [place] [address] Apr, [facility] [address] [id number] [place] [address] Apr, [facility] [address] [id number] [place] [address] Apr, [facility] [address] [id number] [place] [address] Apr, [facility] [address] [id number] [place] [address] Apr, [facility] [address] [id number] [place] [address] Mar, [facility] [address] [id number] [place] [address] Mar, [facility] [address] [id number] [place] [address] Mar, [facility] [address] [id number] [place] [address] Mar, [facility] [address] [id number] [place] [address] Mar, [facility] [address] [id number] [place] [address] Mar, [facility] [address] [id number] [place] [address] Mar, [facility] [address] [id number] [place] [address] Mar, [facility] [address] [id number] [place] [address] Mar, [facility] [address] [id number] [place] [address] Mar, [facility] [address] [id number] [place] [address] Mar, [facility] [address] [id number] [place] [address] Mar, [facility] [address] [id number] [place] [address] Mar, [facility] [address] [id number] [place] [address] Mar, [facility] [address] [id number] [place] [address] Feb, [facility] [address] [id number] [place] [address] Feb, [facility] [address] [id number] [place] [address] Feb, [facility] [address] [id number] [place] [address] Feb, [facility] [address] [id number] [place] [address] Feb, [facility] [address] [id number] [place] [address] Feb, [facility] [address] [id number] [place] [address] Feb, [facility] [address] [id number] [place] [address] Feb, [facility] [address] [id number] [place] [address] Feb, [facility] [address] [id number] [place] [address] Feb, [facility] [address] [id number] [place] [address] Feb, [facility] [address] [id number] [place] [address] Feb, [facility] [address] [id number] [place] [address] 05 Feb, 2012 [facility] [address] [facility] [id number] [place] [address] 05 Feb, 2012 [facility] [address] [id number] [place] [address] 05 Feb, 2012 [facility] [address] [id number] [place] [address] 05 Feb, 2012 [facility] [address] [id number] [place] [address] 24 Dec, 2012 [facility] [address] [id number] [place] [address] 24 Dec, 2012 [facility] [address] [id number] [place] [address] 16 Dec, 2012 [facility] [address] [id number] [place] [address] 16 Dec, 2012 [facility] [address] [id number] [place] [address] 16 Dec, 2012 [facility] [address] [id number] [place] [address] 16 Dec, 2012 [facility] [address] [id number] [place] [address] 14 Dec, 2012 [facility] [address] [id number] [place] [address] 14 Dec, 2012 [facility] [address] [id number] [place] [address] 10 Dec, 2012 [facility] [address] [id number] [place] [address] 10 Dec, 2012 [facility] [address] [id number] [place] [address] 10 Dec, 2012 [facility] [address] [id number] [place] [address] 10 Dec, 2012 [facility] [address] [id number] [place] [address] 03 Dec, 2012 [facility] [address] [id number] [place] [address] 25 Nov, 2012 [facility] [address] [id number] [place] [address] 20 Nov, 2012 [facility] [address] [facility] [id number] [place] [address] 18 Nov, 2012 [facility] [address] [id number] [place] [address] 16 Nov, 2012 [facility] [address] [facility] [id number] [place] [address] 12 Nov, 2012 [facility] [address] [id number] [place] [address] 11 Nov, 2012 [facility] [address] [id number] [place] [address] 05 Nov, 2012 [facility] [address] [id number] [place] [address] 15 Oct, 2012 [facility] [address] [id number] [place] [address] Oct, [facility] [address] [id number] [place] [address] 24 Sep, 2012 [facility] [address] [id number] [place] [address] Sep, [facility] [address] [id number] [place] [address] Sep, [facility] [address] [id number] [place] [address] 17 Sep, 2012 [facility] [address] [id number] [place] [address] 15 Sep, 2012 [facility] [address] [id number] [place] [address] Sep, [facility] [address] [id number] [place] [address] 08 Sep, 2012 [facility] [address] [id number] [place] [address] Aug, [facility] [address] [id number] [place] [address] 18 Aug, 2012 [facility] [address] [id number] [place] [address] 16 Aug, 2012 [facility] [address] [id number] [place] [address] 13 Aug, 2012 [facility] [address] [id number] [place] [address] Aug, [facility] [address] [id number] [place] [address] Aug, [facility] [address] [id number] [place] [address] 04 Aug, 2012 [facility] [address] [id number] [place] [address] Aug, [facility] [address] [id number] [place] [address] July, [facility] [address] [id number] [place] [address] July, [facility] [address] [id number] [place] [address] July, [facility] [address] [facility] [id number] [place] [address] July, [facility] [address] [id number] [place] [address] July, [facility] [address] [id number] [place] [address] Jun, [facility] [address] [id number] [place] [address] May, [facility] [address] [id number] [place] [address] 14 May, 2012 [facility] [address] [id number] [place] [address] 04 May, 2012 [facility] [address] [id number] [place] [address] Apr, [facility] [address] [id number] [place] [address] Apr, [facility] [address] [id number] [place] [address] Apr, [facility] [address] [id number] [place] [address] Mar, [facility] [address] [id number] [place] [address] Mar, [facility] [address] [id number] [place] [address] Mar, [facility] [address] [id number] [place] [address] Mar, [facility] [address] [id number] [place] [address] Mar, [facility] [address] [id number] [place] [address] Mar, [facility] [address] [id number] [place] [address] Mar, [facility] [id number] [place] [address] Feb, [facility] [address] [id number] [place] [address] Feb, [facility] [address] [id number] [place] [address] Feb, [facility] [address] [id number] [place] [address] Feb, [facility] [address] [id number] [place] [address] Feb, [facility] [address] [id number] [place] [address] Feb, [facility] [address] [id number] [place] [address] Feb, [facility] [address] [id number] [place] [address] Feb, [facility] [address] [id number] [place] [address] Jan, [facility] [address] [id number] [place] [address] Jan, [facility] [address] [id number] [place] [address] Jan, [facility] [address] [id number] [place] [address] Jan, [facility] [address] [id number] [place] [address] Jan, [facility] [address] [id number] [place] [address] Jan, [facility] [address] [id number] [place] [address] Jan, [facility] [address] [id number] [place] [address] Jan, [facility] [address] [id number] [place] [address] Jan, [facility] [address] [id number] [place] [address] Jan, [facility] [address] [id number] [place] [address] Jan, [facility] [address] [id number] [place] [address] Jan, [facility] [address] [id number] [place] [address] Jan, [facility] [address] [id number] [place] [address] Jan, [facility] [address] [id number] [place] [address] Jan, [facility] [address] [id number] [place] [address] Jan, [facility] [address] [id number] [place] [address] Dec, [facility] [address] [id number] [place] [address] Dec, [facility] [address] [id number] [place] [address] Dec, [facility] [address] [id number] [place] [address] Dec, [facility] [address] [id number] [place] [address] Dec, [facility] [address] [id number] [place] [address] Dec, [facility] [address] [id number] [place] [address] Dec, [facility] [address] [id number] [place] [address] Dec, [facility] [address] [id number] [place] [address] 08 Dec, 2011 [facility] [address] [id number] [place] [address] 05 Dec, 2011 [facility] [address] [id number] [place] [address] 18 Nov, 2011 [facility] [address] [id number] [place] [address] 13 Nov, 2011 [facility] [address] [id number] [place] [address] 24 Oct, 2011 [facility] [address] [id number] [place] [address] Oct, [facility] [address] [id number] [place] [address] Oct, [facility] [address] [id number] [place] [address] Oct, [facility] [address] [id number] [place] [address] Oct, [facility] [address] [id number] [facility] [place] [address] Oct, [facility] [address] [id number] [place] [address] Oct, [facility] [address] [id number] [facility] [place] [address] Sep, [facility] [address] [id number] [facility] [place] [address] Aug, [facility] [address] [id number] [facility] [place] [address] Aug, [facility] [address] [id number] [place] [address] Aug, [facility] [address] [id number] [place] [address] Aug, [facility] [address] [id number] [place] [address] Aug, [facility] [address] [id number] [place] [address] July, [facility] [address] [id number] [place] [address] July, [facility] [address] [id number] [place] [address] July, [facility] [address] [id number] [place] [address] Jun, [facility] [address] [id number] [place] [address] Jun, [facility] [address] [id number] [place] [address] Jun, [facility] [address] [id number] [place] [address] Jun, [facility] [address] [id number] [place] [address] May, [facility] [address] [id number] [facility] [place] [address] 30 May, 2011 [facility] [address] [facility] [id number] [place] [address] 29 May, 2011 [facility] [address] [id number] [place] [address] 28 May, 2011 [facility] [address] [id number] [place] [address] 23 May, 2011 [facility] [address] [id number] [place] [address] 22 May, 2011 [facility] [address] [id number] [place] [address] 21 May, 2011 [facility] [address] [id number] [place] [address] 19 May, 2011 [facility] [address] [id number] [place] [address] 08 May, 2011 [facility] [address] [id number] [place] [address] 05 May, 2011 [facility] [address] [id number] [place] [address] 02 May, 2011 [facility] [address] [id number] [place] [address] May, [facility] [address] [id number] [place] [address] 31 Mar, 2011 [facility] [address] [id number] [place] [address] Mar, [facility] [address] [id number] [place] [address] 28 Feb, 2011 [facility] [address] [id number] [place] [address] Feb, [facility] [address] [id number] [place] [address] Feb, [facility] [address] [id number] [place] [address] 15 Feb, 2011 [facility] [address] [id number] [place] [address] 13 Feb, 2011 [facility] [address] [id number] [place] [address] 13 Feb, 2011 [facility] [address] [id number] [place] [address] Feb, [facility] [address] [id number] [place] [address] Jan, [facility] [address] [id number] [place] [address] Jan, [facility] [address] [id number] [place] [address] Jan, [facility] [address] [id number] [place] [address] Jan, [facility] [id number] [place] [address] Jan, [facility] [address] [id number] [place] [address] Jan, [facility] [address] [id number] [place] [address] Dec, [facility] [address] [id number] [place] [address] Dec, [facility] [address] [id number] [place] [address] Dec, [facility] [address] [id number] [place] [address] July, [facility] [address] [id number] [place] [address] July, [facility] [address] [id number] [place] [address] 08 Feb, 2010 [facility] [address] [id number] [place] [address] Jan, [facility] [address] [id number] [place] [address] Dec, [facility] [address] [id number] [place] [address] Dec, [facility] [address] [id number] [place] [address] Sep, [facility] [address] [id number] [place] [address] Aug, [facility] [address] [id number] [place] [address] Jun, [facility] [address] [id number] [place] [address] Jun, [facility] [address] [id number] [place] [address] Jan, [facility] [address] [id number] [place] [address] Jan, [facility] [address] [id number] [place] [address] Jan, [facility] [address] [id number] [place] [address] Jan, [facility] [address] [id number] [place] [address] Dec, [facility] [address] [id number] [place] [address] Dec, [facility] [address] [id number] [place] [address] Dec, [facility] [address] [id number] [place] [address] Nov, [facility] [address] [id number] [place] [address] July, [facility] [address] [id number] [place] [address] May, [facility] [address] [id number] [place] [address] Apr, [facility] [address] [facility] [id number] [place] [address] Feb, [facility] [address] [facility] [id number] [place] [address] Dec, IMMUNIZATIONS No Known Immunizations SOCIAL HISTORY Never Assessed REASON FOR VISIT PLAN OF CARE VITAL SIGNS Height 62 in 2013-06-06 Weight 208.2 lbs 2013-06-06 Heart Rate 101 bpm 2013-06-06 Blood pressure systolic 140 mmHg 2013-06-06 Blood pressure diastolic 92 mmHg 2013-06-06 MEDICATIONS Unknown Medications RESULTS No Results PROCEDURES [...]
--- OUTSIDE RECORDS SUMMARY | 2019-06-22 19:38 | XMS REPORT ---
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 Active 191477321 Problem Diabetes E11.9 Active 303380554 Problem Type 2 diabetes mellitus with complication E11.8 Active 613925266 Problem Post laminectomy syndrome M96.1 Acti ve 30741162 Problem Bipolar 1 disorder F31.9 Active 3 66094958 Problem New daily persistent headache G44.52 Active 621445556 Problem Type 2 diabetes mellitus with hyperglycemia E11.65 Active 42266836 Problem Other chronic pain G89.29 Active 8 9972542 Problem Essential hypertension I10 Active 73259236 Problem Acute bilateral low back pain with right-sided sciatica M54.41 Active 436129355 Problem Bipolar disorder, in partial remission, most rec ent episode manic F31.73 Active 70576991 Problem Seasonal allergic rhinitis due to pollen J30.1 Active 63758932 Problem Hyperlipidemia, unspecified E78.5 Ac tive 06126957 Problem Eye exam normal Z01.00 Active 2438 43818 Problem Extreme poverty Z59.5 Active 1140 3006 Problem Lumbago with sciatica, left side M54.42 Active 628636930 Problem Hypertriglyceridemia E78.1 Active 345742045 Problem Insulin long-term use Z79.4 Active 417962394 Problem Rhinosinusitis J32.9 Active 21893 000 ALLERGIES No Information ENCOUNTERS Encounter Location Date Diagnosis [facility] [address] [address] 08 Aug, 2019 [facility] [address] [address] 07 Jun, 2019 [facility] [address] [address] May, [facility] [address] [address] May, [facility] [address] [address] May, [facility] [address] [address] May, Borderline intellectual functioning R41. 83 [place] [address] [address] 09 May, 2019 Type 2 diabetes mellitus with complicati on E11.8 [place] [address] [address] 09 May, 2019 Bipolar 1 disorder F31.9 ; Type 2 diabet es mellitus with complication E11.8 ; Pain of right thumb M79.644 ; Extreme poverty Z59.5 and Low back pain M54.5 [place] [address] [address] 09 May, 2019 [facility] [address] [address] Apr, Bipolar 1 disorder F31.9 ; Borderline in tellectual functioning R41.83 and Extreme poverty Z59.5 [facility] [address] [facility] [id number] [address] [place] [address] Apr, Seasonal allergic rhinitis d ue to pollen J30.1 [facility] [address] [address] Apr, Essential hypertension I10 and Diabetes E11.9 [place] [address] [address] Apr, [place] [address] [address] Mar, Bipolar 1 disorder F31.9 ; Borderline in tellectual functioning R41.83 and Extreme poverty Z59.5 [place] [address] [address] Mar, Exercise counseling Z71.82 [place] [address] [address] Mar, [place] [address] [address] Mar, Bipolar disorder, in partial remission, most recent episode manic F31.73 and 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 [place] [address] [address] Mar, [place] [address] [address] Mar, Exercise counseling Z71.82 [place] [address] [address] Feb, Bipolar 1 disorder F31.9 ; Borderline in tellectual functioning R41.83 and Extreme poverty Z59.5 [place] [address] [address] Feb, [place] [address] [address] Feb, Type 2 diabetes mellitus with complicati on E11.8 [facility] [address] [facility] [id number] [address] [address] Feb, Acute low back pain without sciatica, unspecified back pain laterality M54.5 [place] [address] [address] Feb, Bipolar 1 disorder F31.9 ; Borderline in tellectual functioning R41.83 and Extreme poverty Z59.5 [place] [address] [address] Jan, Bipolar 1 disorder F31.9 ; Borderline in tellectual functioning R41.83 and Extreme poverty Z59.5 [facility] [address] [address] Jan, [facility] [address] [address] Jan, Type 2 diabetes mellitus with complicati on E11.8 [facility] [address] [address] Jan, Type 2 diabetes mellitus with complicati on E11.8 ; Dysuria R30.0 and Diarrhea, unspecified type R19.7 [place] [address] [address] Jan, Bipolar 1 disorder F31.9 ; Borderline in tellectual functioning R41.83 and Extreme poverty Z59.5 [place] [address] [address] Dec, [facility] [address] [address] Dec, [facility] [address] [address] Dec, [facility] [address] [address] Dec, [facility] [address] [address] Dec, Rhinosinusitis J32.9 [facility] [address] [address] Dec, [facility] [address] [address] Dec, Bipolar 1 disorder F31.9 ; Borderline in tellectual functioning R41.83 and Extreme poverty Z59.5 [facility] [address] [address] Dec, Type 2 diabetes mellitus with complicati on E11.8 and Type 2 diabetes mellitus with hyperglycemia E11.65 [place] [address] [address] Dec, [place] [address] [address] Dec, Type 2 diabetes mellitus with complicati on E11.8 ; Insulin long-term use Z79.4 ; Hyperglycemia R73.9 and Yeast infection B37.9 [place] [address] [address] Dec, Encounter for immunization Z23 [place] [address] [address] Nov, [place] [address] [address] Nov, Bipolar 1 disorder F31.9 ; Borderline in tellectual functioning R41.83 and Extreme poverty Z59.5 [place] [address] [address] Nov, [place] [address] [address] Nov, [place] [address] [address] Nov, Borderline intellectual functioning R41. 83 and Bipolar disorder, in partial remission, most recent episode manic F31.73 [facility] [address] [place] [id number] [place] [address] Nov, Epigastric abdominal pain R1 0.13 [place] [address] [address] Nov, Bipolar 1 disorder F31.9 ; Borderline in tellectual functioning R41.83 and Extreme poverty Z59.5 [facility] [place] [id number] [address] [place] [address] Oct, Dysuria R30.0 and Acute cyst itis without hematuria N30.00 [facility] [address] [place] [address] [address] Oct, [facility] [address] [address] Oct, [facility] [address] [address] Oct, Bipolar 1 disorder F31.9 ; Borderline in tellectual functioning R41.83 and Extreme poverty Z59.5 [facility] [address] [address] Oct, [facility] [address] [address] Oct, [facility] [address] [address] Oct, Bipolar disorder, in partial remission, most recent episode manic F31.73 and 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 [place] [id number] Sep, Dental examination Z01.20 and Dental car ies K02.9 [facility] [address] [facility] [id number] [place] [address] Sep, Mouth pain K13.79 [facility] [address] [address] Sep, [facility] [address] [address] Sep, Bipolar 1 disorder F31.9 ; Borderline in tellectual functioning R41.83 and Extreme poverty Z59.5 [facility] [address] [address] Sep, [place] [address] [address] Sep, [place] [address] [address] Sep, Diabetes E11.9 ; Hyperglycemia R73.9 ; L eliseo term current use of insulin Z79.4 and Diarrhea, unspecified type R19.7 [place] [address] [address] Sep, [place] [address] [address] Sep, Bipolar 1 disorder F31.9 ; Borderline in tellectual functioning R41.83 and Extreme poverty Z59.5 [place] [address] [address] Sep, [place] [address] [address] Sep, [place] [address] [address] Aug, Bipolar 1 disorder F31.9 ; Borderline in tellectual functioning R41.83 and Extreme poverty Z59.5 [place] [address] [address] Aug, Exercise counseling Z71.82 [place] [address] [address] Aug, Bipolar 1 disorder F31.9 ; Borderline in tellectual functioning R41.83 and Extreme poverty Z59.5 [place] [address] [address] Aug, Borderline intellectual functioning R41. 83 and Bipolar disorder, in partial remission, most recent episode manic F31.73 [place] [address] [address] Aug, Low back pain M54.5 [place] [address] [address] Aug, Borderline intellectual functioning R41. 83 and Bipolar disorder, in partial remission, most recent episode manic F31.73 [place] [address] [address] July, Acute superficial gastritis without hemo rrhage K29.00 ; Low back pain M54.5 and Other chronic pain G89.29 [place] [address] [address] July, [place] [address] [address] July, [place] [address] [address] Jun, [facility] [address] [facility] [id number] [address] [place] [address] Jun, Bilateral lower extremity ed epi R60.0 [place] [address] [address] Jun, Borderline intellectual functioning R41. 83 and Bipolar disorder, in partial remission, most recent episode manic F31.73 [place] [address] [address] Jun, [place] [address] [address] May, Bronchitis J40 [place] [address] [address] May, Screening for breast cancer Z12.31 and E ncounter for immunization Z23 [place] [address] [address] May, Bipolar 1 disorder F31.9 ; Borderline in tellectual functioning R41.83 and Extreme poverty Z59.5 [place] [address] [address] Apr, [place] [address] [address] 07 Apr, 2018 Bipolar 1 disorder F31.9 ; Borderline in tellectual functioning R41.83 and Extreme poverty Z59.5 [place] [address] [address] 05 Apr, 2018 Irritable bowel syndrome with diarrhea K 58.0 and Dental abscess K04.7 [place] [address] [address] Mar, [place] [address] [place] [address] Mar, [place] [address] [address] Mar, Bipolar 1 disorder F31.9 ; Borderline in tellectual functioning R41.83 and Extreme poverty Z59.5 [place] [address] [address] Mar, Hypertriglyceridemia E78.1 [place] [address] [address] Mar, Borderline intellectual functioning R41. 83 and Bipolar disorder, in partial remission, most recent episode manic F31.[address] [address] Mar, Bipolar 1 disorder F31.9 ; Borderline in tellectual functioning R41.83 and Extreme poverty Z59.5 [place] [address] [address] Feb, Generalized abdominal pain R10.84 and Di arrhea, unspecified type R19.7 [place] [address] [address] Feb, [place] [id number] Feb, Myalgia M79.10 and Nausea R11.0 [place] [address] [address] Feb, Bipolar 1 disorder F31.9 ; Borderline in tellectual functioning R41.83 and Extreme poverty Z59.5 [place] [address] [address] Feb, [place] [address] [place] [address] Feb, Diabetes E11.9 ; Hyperglycemia R73.9 and Diarrhea, unspecified R19.7 [place] [address] [address] Feb, Diarrhea, unspecified type R19.7 ; Abdom inal pain R10.9 and Encounter for immunization Z23 [place] [address] [address] Jan, Bipolar 1 disorder F31.9 ; Borderline in tellectual functioning R41.83 and Extreme poverty Z59.5 [place] [address] [address] Dec, Bipolar 1 disorder F31.9 ; Borderline in tellectual functioning R41.83 and Extreme poverty Z59.5 [place] [address] [address] Nov, [address] [address] Nov, Hypertriglyceridemia E78.1 [place] [address] [address] Nov, Bipolar 1 disorder F31.9 ; Borderline in tellectual functioning R41.83 and Extreme poverty Z59.5 [place] [address] [address] Nov, Type 2 diabetes mellitus with complicati on E11.8 [place] [address] [address] Nov, Borderline intellectual functioning R41. 83 and Bipolar disorder, in partial remission, most recent episode manic F31.73 [place] [address] [address] Nov, Type 2 diabetes mellitus with complicati on E11.8 [place] [address] [address] 11 Nov, 2017 Bipolar 1 disorder F31.9 ; Borderline in tellectual functioning R41.83 and Extreme poverty Z59.5 [place] [address] [address] Nov, Type 2 diabetes mellitus with complicati on E11.8 ; Pain of left upper arm M79.622 ; Pain in right upper arm M79.621 ; Hyperglycemia R73.9 ; Lumbago with sciatica, left side M54.42 and Other chronic pain G89.[address] [address] Oct, Bipolar 1 disorder F31.9 ; Borderline in tellectual functioning R41.83 and Extreme poverty Z59.[address] [address] Oct, Type 2 diabetes mellitus with hyperglyce didi E11.65 ; intermediate current use of insulin Z79.4 and Other acute gastritis without hemorrhage K29.[address] [address] Oct, Bipolar 1 disorder F31.9 ; Borderline in tellectual functioning R41.83 and Extreme poverty Z59.[address] [address] Sep, Diarrhea, unspecified R19.7 and Vomiting , unspecified R11.[address] [address] Aug, Type 2 diabetes mellitus with complicati on E11.[address] [address] Aug, [address] [address] Aug, Bipolar 1 disorder F31.9 ; Borderline in tellectual functioning R41.83 and Extreme poverty Z59.5 [place] [address] [address] Aug, Borderline intellectual functioning R41. 83 and Bipolar disorder, in partial remission, most recent episode manic F31.73 [place] [address] [address] Aug, Bipolar 1 disorder F31.9 [place] [address] [address] Aug, [place] [address] [address] Aug, [place] [address] [address] Aug, Bipolar 1 disorder F31.9 ; Borderline in tellectual functioning R41.83 and Extreme poverty Z59.5 [place] [address] [address] July, Type 2 diabetes mellitus with complicati on E11.8 [place] [address] [address] July, Bipolar 1 disorder F31.9 ; Borderline in tellectual functioning R41.83 and Extreme poverty Z59.5 [place] [address] [address] Jun, Bipolar 1 disorder F31.9 ; Borderline in tellectual functioning R41.83 and Extreme poverty Z59.5 [place] [address] [address] Jun, Bipolar 1 disorder F31.9 ; Borderline in tellectual functioning R41.83 and Extreme poverty Z59.5 [place] [address] [address] Jun, Bipolar 1 disorder F31.9 ; Borderline in tellectual functioning R41.83 and Extreme poverty Z59.5 [place] [address] [address] May, Urinary tract infection without hematuri a, site unspecified N39.0 [place] [address] [place] [address] May, Bipolar 1 disorder F31.9 ; Borderline in tellectual functioning R41.83 and Extreme poverty Z59.5 [place] [address] [address] Apr, Diabetes E11.9 and Breast cancer screeni ng Z12.31 [place] [address] [address] 20 Apr, 2017 Bipolar 1 disorder F31.9 and 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 [place] [address] [place] [address] Mar, Bipolar 1 disorder F31.9 ; Borderline in tellectual functioning R41.83 and Extreme poverty Z59.5 [place] [address] [address] Mar, New daily persistent headache G44.52 ; L eg pain 729.5 and History of carpal tunnel release Z98.890 [place] [address] [address] Mar, Hyperlipidemia, unspecified E78.5 [place] [address] [address] Mar, Bipolar 1 disorder F31.9 ; Borderline in tellectual functioning R41.83 and Extreme poverty Z59.5 [place] [address] [address] Feb, Bipolar 1 disorder F31.9 ; Borderline in tellectual functioning R41.83 and Extreme poverty Z59.5 [place] [address] [address] Feb, Diabetes E11.9 [place] [address] [address] Feb, Viral syndrome B34.9 [place] [address] [address] Jan, Other viral agents as the cause of disea ses classified elsewhere B97.89 and Acute upper respiratory infection, unspecified J06.9 [place] [address] [address] 16 Jan, 2017 Bipolar 1 disorder F31.9 and 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 [place] [address] [address] Jan, Bipolar 1 disorder F31.9 ; Borderline in tellectual functioning R41.83 and Extreme poverty Z59.5 [place] [address] [address] Dec, Diabetes E11.9 [place] [address] [address] Dec, Diabetes E11.9 and Encounter for immuniz ation Z23 [place] [address] [address] Dec, Bipolar 1 disorder F31.9 ; Borderline in tellectual functioning R41.83 and Extreme poverty Z59.5 [place] [address] [address] Dec, Back pain M54.9 [place] [address] [address] 07 Nov, 2016 [place] [address] [address] Nov, Bipolar 1 disorder F31.9 ; Borderline in tellectual functioning R41.83 and Extreme poverty Z59.5 [place] [address] [address] 05 Nov, 2016 Bipolar 1 disorder F31.9 ; Borderline in tellectual functioning R41.83 and Extreme poverty Z59.5 [place] [address] [address] Oct, Borderline intellectual functioning R41. 83 and Bipolar 1 disorder F31.9 [place] [address] [address] Oct, Bipolar 1 disorder F31.9 ; Borderline in tellectual functioning R41.83 and Extreme poverty Z59.5 [place] [address] [address] Oct, Back pain M54.9 [place] [address] [address] Oct, Borderline intellectual functioning R41. 83 and Type 2 diabetes mellitus with complication E11.8 [place] [address] [address] Sep, Bipolar 1 disorder F31.9 ; Borderline in tellectual functioning R41.83 and Extreme poverty Z59.5 [place] [address] [address] Sep, Borderline intellectual functioning R41. 83 and Bipolar 1 disorder F31.9 [place] [address] [address] Sep, Bipolar 1 disorder F31.9 ; Borderline in tellectual functioning R41.83 and Extreme poverty Z59.5 [place] [address] [address] Aug, Diabetes E11.9 ; Hyperlipidemia, unspeci fied E78.5 and Lumbar radiculopathy M54.16 [place] [address] [address] 15 Aug, 2016 Bipolar 1 disorder F31.9 ; Borderline in tellectual functioning R41.83 and Extreme poverty Z59.5 [place] [address] [address] Aug, [place] [address] [address] 08 Aug, 2016 [place] [address] [address] Aug, [facility] [address] [place] [id number] [place] [address] July, [facility] [address] [address] July, Acute bilateral low back pain with right -sided sciatica M54.41 [facility] [address] [address] July, Bipolar 1 disorder F31.9 ; Borderline in tellectual functioning R41.83 and Extreme poverty Z59.5 [place] [address] [place] [id number] [place] [address] July, Back pain M54.9 and Diabetes E11.9 [place] [address] [address] Jun, Bipolar 1 disorder F31.9 ; Borderline in tellectual functioning R41.83 and Extreme poverty Z59.5 [place] [address] [address] Jun, Bipolar 1 disorder F31.9 ; Borderline in tellectual functioning R41.83 and Extreme poverty Z59.5 [place] [address] [place] [id number] [place] [address] May, Visit for pelvic exam Z01.419 ; Acute va ginitis N76.0 and Diabetes E11.9 [place] [address] [place] [id number] [place] [address] May, Bipolar 1 disorder F31.9 ; Borderline in tellectual functioning R41.83 and Extreme poverty Z59.5 [place] [address] [address] May, [place] [address] [address] May, [facility] [address] [address] May, Bipolar 1 disorder F31.9 ; Borderline in tellectual functioning R41.83 and Extreme poverty Z59.5 [place] [address] [address] May, Hyperlipidemia, unspecified E78.5 [place] [address] [address] 13 Apr, 2016 Breast cancer screening Z12.39 [place] [address] [address] Mar, [place] [address] [address] Mar, Bipolar disorder, current episode mixed, unspecified F31.60 [place] [address] [address] Mar, Bipolar 1 disorder F31.9 ; Borderline in tellectual functioning R41.83 and Extreme poverty Z59.5 [place] [address] [address] Feb, Acute nasopharyngitis J00 [place] [address] [address] 27 Feb, 2016 Dental examination Z01.20 [place] [address] [address] Feb, Dental cavities K02.9 and Chronic period ontitis, unspecified K05.30 [place] [address] [address] Feb, Low back pain M54.5 and Extreme poverty Z59.5 [place] [address] [address] Feb, [place] [address] [address] 05 Feb, 2016 Routine gynecological examination V72.31 ; Breast cancer screening Z12.39 and Herpes simplex type 1 infection B00.9 [place] [address] [address] Feb, Diabetes E11.9 [place] [address] [place] [id number] [place] [address] 01 Feb, 2016 Encounter for dental examination and leti aning without abnormal findings Z01.20 [place] [address] [address] Jan, Hyperlipidemia, unspecified E78.5 [place] [address] [address] Jan, Bipolar 1 disorder F31.9 ; Borderline in tellectual functioning R41.83 and Extreme poverty Z59.5 [place] [address] [address] 18 Jan, 2016 Diabetes E11.9 [place] [address] [address] 17 Jan, 2016 Diabetes E11.9 [place] [address] [address] 14 Dec, 2015 Bipolar 1 disorder F31.9 ; Borderline in tellectual functioning R41.83 and Extreme poverty Z59.5 [place] [address] [address] 13 Dec, 2015 Bipolar disorder, current episode mixed, unspecified F31.60 and 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 [place] [address] [address] 16 Nov, 2015 Bipolar 1 disorder F31.9 ; Borderline in tellectual functioning R41.83 ; Extreme poverty Z59.5 and Non compliance with medical treatment Z91.19 [place] [address] [address] Oct, [place] [address] [address] Oct, Dental caries K02.9 [place] [address] [address] Oct, Low back pain M54.5 and Other chronic pa in G89.29 [place] [address] [address] Oct, Bipolar 1 disorder F31.9 ; Borderline in tellectual functioning R41.83 ; Extreme poverty Z59.5 and Non compliance with medical treatment Z91.19 [place] [address] [address] Oct, [place] [address] [address] Oct, [place] [address] [address] Oct, Dental examination Z01.20 [place] [address] [address] Oct, Bipolar 1 disorder F31.9 ; Borderline in tellectual functioning R41.83 ; Extreme poverty Z59.5 and Non compliance with medical treatment Z91.19 [place] [address] [address] Oct, [place] [address] [address] Sep, Type 2 diabetes mellitus with complicati on E11.8 [place] [address] [address] Sep, Bipolar disorder, current episode mixed, unspecified F31.60 [place] [address] [address] Sep, Bipolar disorder, current episode mixed, unspecified F31.60 [place] [address] [address] Sep, Bipolar disorder, in partial remission, most recent episode manic F31.73 ; 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 ; Extreme poverty Z59.5 and Non compliance with medical treatment Z91.19 [place] [address] [address] Aug, Bipolar disorder, in partial remission, most recent episode manic F31.73 ; 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 ; Extreme poverty Z59.5 and Non compliance with medical treatment Z91.19 [place] [address] [address] Aug, Bipolar disorder, in partial remission, most recent episode manic F31.73 ; 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 ; Extreme poverty Z59.5 and Non compliance with medical treatment Z91.19 [place] [address] [address] Aug, [place] [address] [address] July, Bipolar disorder, in partial remission, most recent episode manic F31.73 ; 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 ; Extreme poverty Z59.5 and Non compliance with medical treatment Z91.19 [place] [address] [address] July, Bipolar disorder, current episode mixed, unspecified F31.60 [place] [address] [address] July, Bipolar disorder, in partial remission, most recent episode manic F31.73 ; 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 ; Extreme poverty Z59.5 and Non compliance with medical treatment Z91.19 [place] [address] [address] July, 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 and Chronic pain G89.29 [place] [address] [address] Jun, intermediate current use of opiate analgesi c Z79.891 and Bipolar 1 disorder F31.9 [place] [address] [address] Jun, [place] [address] [address] Jun, [place] [address] [address] Jun, [place] [address] [address] Jun, Bipolar disorder, in partial remission, most recent episode manic F31.73 ; 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 and Non compliance with medical treatment Z91.19 [place] [address] [address] May, Bipolar disorder, in partial remission, most recent episode manic F31.73 ; 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 and Non compliance with medical treatment Z91.19 [place] [address] [address] May, Bipolar disorder, in partial remission, most recent episode manic F31.73 [place] [address] [address] May, Diabetes E11.9 and Chronic pain G89.[address] [address] May, [address] [address] May, Bipolar disorder, in partial remission, most recent episode manic F31.73 ; Non compliance with medical treatment Z91.19 and 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 [place] [address] [address] May, Type 2 diabetes mellitus with complicati on E11.8 and Back pain M54.9 [place] [address] [address] May, Bipolar disorder, in partial remission, most recent episode manic F31.73 and Borderline intellectual functioning R41.[address] [address] Apr, [address] [address] Apr, [address] [address] Apr, [place] [address] [address] 09 Apr, 2015 Diabetes E11.9 ; Irritable bowel syndrom e with diarrhea K58.0 and Lumbar radiculopathy M54.16 [place] [address] [address] 02 Apr, 2015 Breast screening Z12.39 [place] [address] [place] [address] Apr, Bipolar disorder, in partial remission, most recent episode manic F31.73 ; Non compliance with medical treatment Z91.19 and 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 [place] [address] [address] Mar, Edema, unspecified type R60.9 and Type 2 diabetes mellitus with complication E11.8 [place] [address] [address] Mar, Bipolar disorder, in partial remission, most recent episode manic F31.73 ; Non compliance with medical treatment Z91.19 ; 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 and Extreme poverty Z59.5 [place] [address] [address] Mar, Bipolar disorder, current episode mixed, unspecified F31.60 ; 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 ; Extreme poverty Z59.5 and Generalized anxiety disorder F41.1 [place] [address] [address] Mar, Bipolar disorder, in partial remission, most recent episode manic F31.73 ; 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 and Extreme poverty Z59.5 [place] [address] [address] Feb, Bipolar disorder, in partial remission, most recent episode manic F31.73 ; 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 and Extreme poverty Z59.5 [place] [address] [address] Feb, Bipolar disorder, in partial remission, most recent episode manic F31.73 ; 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 and Extreme poverty Z59.5 [place] [address] [address] Feb, [place] [address] [address] Jan, Type 2 diabetes mellitus with complicati on E11.8 and Petechiae R23.3 [place] [address] [place] [address] Jan, Type 2 diabetes mellitus with complicati on E11.8 ; Edema, unspecified R60.9 ; Petechiae R23.3 and Diabetes E11.9 [place] [address] [address] Jan, Bipolar disorder, in partial remission, most recent episode manic F31.73 ; 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 and Extreme poverty Z59.5 [place] [address] [address] Jan, Bipolar disorder, in partial remission, most recent episode manic F31.73 ; 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 and Extreme poverty Z59.5 [place] [address] [address] Dec, Bipolar disorder, in partial remission, most recent episode manic F31.73 [place] [address] [address] Dec, Edema, due to unspecified malnutrition t ype, unspecified edema R60.9 and Essential hypertension I10 [place] [address] [address] Dec, Bipolar disorder, in partial remission, most recent episode manic F31.73 [place] [address] [address] Nov, Bipolar I disorder, most recent episode (or current) mixed, unspecified 296.[address] [place] [address] Nov, Stress incontinence, female 625.6 ; Back pain 724.5 and Leg pain 729.5 [facility] [address] [address] Nov, Generalized anxiety disorder 300.02 and Bipolar II disorder 296.89 [facility] [address] [address] Nov, Bipolar I disorder, most recent episode (or current) mixed, unspecified 296.60 [facility] [address] [address] Oct, [facility] [address] [address] Oct, [facility] [address] [address] Oct, [facility] [address] [address] Oct, Bipolar I disorder, most recent episode (or current) mixed, unspecified 296.60 [facility] [address] [address] Sep, Diabetes 250.00 [facility] [address] [address] Sep, Bipolar I disorder, most recent episode (or current) mixed, unspecified 296.60 [facility] [address] [address] Sep, [facility] [address] [address] Sep, [facility] [address] [address] Sep, Bipolar I disorder, most recent episode (or current) mixed, unspecified 296.60 [facility] [address] [address] Sep, Bipolar I disorder, most recent episode (or current) mixed, unspecified 296.60 [facility] [address] [place] [id number] [place] [address] Sep, [facility] [address] [address] Sep, Anxiety 300.00 ; Diabetes 250.00 and Hyp erlipidemia 272.4 [facility] [address] [address] Aug, [facility] [address] [address] Aug, [facility] [address] [address] Aug, [facility] [address] [address] Aug, Bipolar I disorder, most recent episode (or current) mixed, unspecified 296.60 [facility] [address] [address] Aug, Generalized anxiety disorder 300.02 and Bipolar II disorder 296.89 [facility] [address] [address] July, Bipolar I disorder, most recent episode (or current) mixed, unspecified 296.60 [facility] [address] [address] July, Cough 786.2 [facility] [address] [address] July, Bipolar I disorder, most recent episode (or current) mixed, unspecified 296.60 [facility] [address] [address] Jun, Diabetes 250.00 [facility] [address] [address] Jun, [facility] [address] [address] Jun, [facility] [address] [place] [address] May, [facility] [place] [facility] [address] [facility] [id number] [facility] [address] May, [facility] [place] [facility] [address] [facility] [id number] [place] [address] May, [facility] [place] [facility] [address] [id number] [place] [address] May, [facility] [place] [facility] [address] [id number] [place] [address] May, [facility] [place] [facility] [address] [facility] [id number] [place] [address] May, [facility] [place] [facility] [address] [id number] [place] [address] Apr, [facility] [place] [facility] [address] [id number] [place] [address] Apr, [facility] [place] [facility] [address] [id number] [place] [address] Apr, [facility] [place] [facility] [address] [id number] [place] [address] Apr, [facility] [place] [facility] [address] [id number] [place] [address] Apr, [facility] [place] [facility] [address] [id number] [place] [address] Apr, [facility] [place] [facility] [address] [id number] [place] [address] Apr, [facility] [place] [facility] [address] [facility] [id number] [place] [address] Apr, [facility] [place] [facility] [address] [id number] [place] [address] Mar, [facility] [place] [facility] [address] [id number] [place] [address] Mar, [facility] [place] [facility] [address] [id number] [place] [address] Mar, [facility] [place] [facility] [address] [id number] [place] [address] Mar, [facility] [place] [facility] [address] [id number] [place] [address] Mar, [facility] [place] [facility] [address] [id number] [place] [address] Mar, [facility] [place] [facility] [address] [id number] [place] [address] Mar, [facility] [place] [facility] [address] [facility] [id number] [place] [address] Mar, [facility] [place] [facility] [address] [id number] [place] [address] Feb, [facility] [place] [facility] [address] [id number] [place] [address] Feb, [facility] [place] [facility] [address] [id number] [place] [address] Feb, [facility] [place] [facility] [address] [id number] [place] [address] Feb, [facility] [place] [facility] [address] [id number] [place] [address] Feb, [facility] [place] [facility] [address] [id number] [place] [address] Feb, [facility] [place] [facility] [address] [id number] [place] [address] Feb, [facility] [place] [facility] [address] [id number] [place] [address] Feb, [facility] [place] [facility] [address] [id number] [place] [address] Feb, [facility] [place] [facility] [address] [id number] [place] [address] Feb, [facility] [place] [facility] [address] [id number] [place] [address] Jan, [facility] [place] [facility] [address] [id number] [place] [address] Jan, [facility] [place] [facility] [address] [id number] [place] [address] Jan, [facility] [place] [facility] [address] [id number] [place] [address] Jan, [facility] [place] [facility] [address] [id number] [place] [address] Jan, [facility] [place] [facility] [address] [id number] [place] [address] Jan, [facility] [place] [facility] [address] [id number] [place] [address] Jan, [facility] [place] [facility] [address] [id number] [place] [address] Jan, [facility] [place] [facility] [address] [id number] [place] [address] Jan, [facility] [place] [facility] [address] [id number] [place] [address] Jan, [facility] [place] [facility] [address] [id number] [place] [address] Jan, [facility] [place] [facility] [address] [id number] [place] [address] Jan, [facility] [place] [facility] [address] [id number] [place] [address] Jan, [facility] [place] [facility] [address] [id number] [place] [address] Jan, [facility] [place] [facility] [address] [id number] [place] [address] Jan, [facility] [place] [facility] [address] [place] [id number] [place] [address] Dec, [facility] [place] [facility] [address] [id number] [place] [address] Dec, [facility] [place] [facility] [address] [id number] [place] [address] 16 Dec, 2013 [facility] [place] [facility] [address] [id number] [place] [address] 16 Dec, 2013 [facility] [place] [facility] [address] [id number] [place] [address] 09 Dec, 2013 [facility] [place] [facility] [address] [id number] [place] [address] 09 Dec, 2013 [facility] [place] [facility] [address] [id number] [place] [address] 07 Dec, 2013 [facility] [place] [facility] [address] [id number] [place] [address] 07 Dec, 2013 [facility] [place] [facility] [address] [id number] [place] [address] 25 Sep, 2013 [facility] [place] [facility] [address] [id number] [place] [address] 25 Sep, 2013 [facility] [place] [facility] [address] [id number] [place] [address] 10 Sep, 2013 [facility] [place] [facility] [address] [id number] [place] [address] 10 Sep, 2013 [facility] [place] [facility] [address] [id number] [place] [address] 08 Sep, 2013 [facility] [place] [facility] [address] [id number] [place] [address] 08 Sep, 2013 [facility] [place] [facility] [address] [id number] [place] [address] 08 Sep, 2013 [facility] [place] [facility] [address] [id number] [place] [address] 08 Sep, 2013 [facility] [place] [facility] [address] [id number] [place] [address] 08 Sep, 2013 [facility] [place] [facility] [address] [id number] [place] [address] 08 Sep, 2013 [facility] [place] [facility] [address] [id number] [place] [address] 04 Sep, 2013 [facility] [place] [facility] [address] [id number] [place] [address] 04 Sep, 2013 [facility] [place] [facility] [address] [id number] [facility] [address] Nov, 2013 [facility] [place] [facility] [address] [id number] [place] [address] Nov, [facility] [place] [facility] [address] [facility] [id number] [facility] [address] Nov, [facility] [place] [facility] [address] [id number] [place] [address] Oct, [facility] [place] [facility] [address] [id number] [place] [address] Oct, [facility] [place] [facility] [address] [id number] [place] [address] Oct, [facility] [place] [facility] [address] [id number] [place] [address] Oct, [facility] [place] [facility] [address] [id number] [place] [address] Oct, [facility] [place] [facility] [address] [facility] [id number] [place] [address] Oct, [facility] [place] [facility] [address] [id number] [place] [address] Oct, [facility] [place] [facility] [address] [id number] [place] [address] Oct, [facility] [place] [facility] [address] [id number] [place] [address] Oct, [facility] [place] [facility] [address] [id number] [place] [address] Oct, [facility] [place] [facility] [address] [id number] [place] [address] Oct, [facility] [place] [facility] [address] [facility] [id number] [place] [address] Oct, [facility] [place] [facility] [address] [id number] [place] [address] Oct, [facility] [place] [facility] [address] [id number] [facility] [address] Oct, [facility] [place] [facility] [address] [facility] [id number] [facility] [address] Sep, [facility] [place] [facility] [address] [facility] [id number] [place] [address] Sep, [facility] [place] [facility] [address] [id number] [place] [address] Sep, [facility] [place] [facility] [address] [facility] [id number] [place] [address] Sep, 2013 [facility] [place] [facility] [address] [facility] [id number] [place] [address] Sep, [facility] [place] [facility] [address] [id number] [place] [address] Sep, [facility] [place] [facility] [address] [id number] [place] [address] Sep, [facility] [place] [facility] [address] [id number] [place] [address] Sep, [facility] [place] [facility] [address] [id number] [place] [address] Aug, [facility] [place] [facility] [address] [id number] [place] [address] Aug, [facility] [place] [facility] [address] [id number] [place] [address] Aug, [facility] [place] [facility] [address] [id number] [place] [address] Aug, [facility] [place] [facility] [address] [id number] [place] [address] Aug, [facility] [place] [facility] [address] [id number] [place] [address] Aug, [facility] [place] [facility] [address] [id number] [place] [address] Aug, [facility] [place] [facility] [address] [id number] [place] [address] Aug, [facility] [place] [facility] [address] [id number] [place] [address] July, [facility] [place] [facility] [address] [id number] [place] [address] July, [facility] [place] [facility] [address] [id number] [place] [address] July, [facility] [place] [facility] [address] [id number] [place] [address] July, [facility] [place] [facility] [address] [id number] [place] [address] July, [facility] [place] [facility] [address] [id number] [place] [address] July, [facility] [place] [facility] [address] [id number] [place] [address] July, [facility] [place] [facility] [address] [id number] [place] [address] July, [facility] [place] [facility] [address] [id number] [place] [address] Jun, [facility] [place] [facility] [address] [id number] [place] [address] Jun, [facility] [place] [facility] [address] [id number] [place] [address] Jun, [facility] [place] [facility] [address] [id number] [place] [address] Jun, [facility] [place] [facility] [address] [id number] [place] [address] Jun, [facility] [place] [facility] [address] [id number] [place] [address] Jun, [facility] [place] [facility] [address] [id number] [place] [address] Jun, [facility] [place] [facility] [address] [id number] [place] [address] Jun, [facility] [place] [facility] [address] [id number] [place] [address] Jun, [facility] [place] [facility] [address] [facility] [id number] [facility] [address] Jun, [facility] [place] [facility] [address] [facility] [id number] [place] [address] Jun, [facility] [place] [facility] [address] [facility] [id number] [place] [address] Jun, [facility] [place] [facility] [address] [facility] [id number] [facility] [place] [address] May, [facility] [place] [facility] [address] [facility] [id number] [facility] [place] [address] May, [facility] [place] [facility] [address] [id number] [place] [address] May, [facility] [place] [facility] [address] [id number] [place] [address] May, [facility] [place] [facility] [address] [id number] [place] [address] May, [facility] [place] [facility] [address] [facility] [id number] [place] [address] May, [facility] [place] [facility] [address] [id number] [place] [address] May, [facility] [place] [facility] [address] [id number] [place] [address] May, [facility] [place] [facility] [address] [id number] [place] [address] May, [facility] [place] [facility] [address] [facility] [id number] [place] [address] May, [facility] [place] [facility] [address] [id number] [place] [address] May, [facility] [place] [facility] [address] [facility] [id number] [place] [address] May, [facility] [place] [facility] [address] [id number] [place] [address] May, [facility] [place] [facility] [address] [id number] [place] [address] May, [facility] [place] [facility] [address] [facility] [id number] [place] [address] Apr, [facility] [place] [facility] [address] [id number] [place] [address] Apr, [facility] [place] [facility] [address] [id number] [place] [address] Apr, [facility] [place] [facility] [address] [id number] [place] [address] Apr, [facility] [facility] [address] [id number] [place] [address] Apr, [facility] [address] [id number] [place] [address] Apr, [facility] [address] [id number] [place] [address] Mar, [facility] [address] [id number] [place] [address] Mar, [facility] [address] [id number] [place] [address] Mar, [facility] [address] [id number] [place] [address] Mar, [facility] [address] [id number] [place] [address] Mar, [facility] [address] [id number] [place] [address] Mar, [facility] [address] [id number] [place] [address] Mar, [facility] [address] [id number] [place] [address] Mar, [facility] [address] [id number] [place] [address] Mar, [facility] [address] [id number] [place] [address] Mar, [facility] [address] [id number] [place] [address] Mar, [facility] [address] [id number] [place] [address] Mar, [facility] [address] [id number] [place] [address] Mar, [facility] [address] [id number] [place] [address] Mar, [facility] [address] [id number] [place] [address] Feb, [facility] [address] [id number] [place] [address] Feb, [facility] [address] [id number] [place] [address] Feb, [facility] [address] [id number] [place] [address] Feb, [facility] [address] [id number] [place] [address] Feb, [facility] [address] [id number] [place] [address] Feb, [facility] [address] [id number] [place] [address] Feb, [facility] [address] [id number] [place] [address] Feb, [facility] [address] [id number] [place] [address] Feb, [facility] [address] [id number] [place] [address] Feb, [facility] [address] [id number] [place] [address] Feb, [facility] [address] [id number] [place] [address] Feb, [facility] [address] [id number] [place] [address] 05 Feb, 2012 [facility] [address] [facility] [id number] [place] [address] 05 Feb, 2012 [facility] [address] [id number] [place] [address] 05 Feb, 2012 [facility] [address] [id number] [place] [address] 05 Feb, 2012 [facility] [address] [id number] [place] [address] 24 Dec, 2012 [facility] [address] [id number] [place] [address] 24 Dec, 2012 [facility] [address] [id number] [place] [address] 16 Dec, 2012 [facility] [address] [id number] [place] [address] 16 Dec, 2012 [facility] [address] [id number] [place] [address] 16 Dec, 2012 [facility] [address] [id number] [place] [address] 16 Dec, 2012 [facility] [address] [id number] [place] [address] 14 Dec, 2012 [facility] [address] [id number] [place] [address] 14 Dec, 2012 [facility] [address] [id number] [place] [address] 10 Dec, 2012 [facility] [address] [id number] [place] [address] 10 Dec, 2012 [facility] [address] [id number] [place] [address] 10 Dec, 2012 [facility] [address] [id number] [place] [address] 10 Dec, 2012 [facility] [address] [id number] [place] [address] 03 Dec, 2012 [facility] [address] [id number] [place] [address] 25 Nov, 2012 [facility] [address] [id number] [place] [address] 20 Nov, 2012 [facility] [address] [facility] [id number] [place] [address] 18 Nov, 2012 [facility] [address] [id number] [place] [address] 16 Nov, 2012 [facility] [address] [facility] [id number] [place] [address] 12 Nov, 2012 [facility] [address] [id number] [place] [address] 11 Nov, 2012 [facility] [address] [id number] [place] [address] 05 Nov, 2012 [facility] [address] [id number] [place] [address] 15 Oct, 2012 [facility] [address] [id number] [place] [address] Oct, [facility] [address] [id number] [place] [address] 24 Sep, 2012 [facility] [address] [id number] [place] [address] Sep, [facility] [address] [id number] [place] [address] Sep, [facility] [address] [id number] [place] [address] 17 Sep, 2012 [facility] [address] [id number] [place] [address] 15 Sep, 2012 [facility] [address] [id number] [place] [address] Sep, [facility] [address] [id number] [place] [address] 08 Sep, 2012 [facility] [address] [id number] [place] [address] Aug, [facility] [address] [id number] [place] [address] 18 Aug, 2012 [facility] [address] [id number] [place] [address] 16 Aug, 2012 [facility] [address] [id number] [place] [address] 13 Aug, 2012 [facility] [address] [id number] [place] [address] Aug, [facility] [address] [id number] [place] [address] Aug, [facility] [address] [id number] [place] [address] 04 Aug, 2012 [facility] [address] [id number] [place] [address] Aug, [facility] [address] [id number] [place] [address] July, [facility] [address] [id number] [place] [address] July, [facility] [address] [id number] [place] [address] July, [facility] [address] [facility] [id number] [place] [id number] July, [facility] [address] [id number] [place] [address] July, [facility] [address] [id number] [place] [address] Jun, [facility] [address] [id number] [place] [address] May, [facility] [address] [id number] [place] [address] 14 May, 2012 [facility] [address] [id number] [place] [address] 04 May, 2012 [facility] [address] [id number] [place] [address] Apr, [facility] [address] [id number] [place] [address] Apr, [facility] [address] [id number] [place] [address] Apr, [facility] [address] [id number] [place] [address] Mar, [facility] [address] [id number] [place] [address] Mar, [facility] [address] [id number] [place] [address] Mar, [facility] [address] [id number] [place] [address] Mar, [facility] [address] [id number] [place] [address] Mar, [facility] [address] [id number] [place] [address] Mar, [facility] [address] [id number] [place] [address] Mar, [facility] [id number] [place] [address] Feb, [facility] [address] [id number] [place] [address] Feb, [facility] [address] [id number] [place] [address] Feb, [facility] [address] [id number] [place] [address] Feb, [facility] [address] [id number] [place] [address] Feb, [facility] [address] [id number] [place] [address] Feb, [facility] [address] [id number] [place] [address] Feb, [facility] [address] [id number] [place] [address] Feb, [facility] [address] [id number] [place] [address] Jan, [facility] [address] [id number] [place] [address] Jan, [facility] [address] [id number] [place] [address] Jan, [facility] [address] [id number] [place] [address] Jan, [facility] [address] [id number] [place] [address] Jan, [facility] [address] [id number] [place] [address] Jan, [facility] [address] [id number] [place] [address] Jan, [facility] [address] [id number] [place] [address] Jan, [facility] [address] [id number] [place] [address] Jan, [facility] [address] [id number] [place] [address] Jan, [facility] [address] [id number] [place] [address] Jan, [facility] [address] [id number] [place] [address] Jan, [facility] [address] [id number] [place] [address] Jan, [facility] [address] [id number] [place] [address] Jan, [facility] [address] [id number] [place] [address] Jan, [facility] [address] [id number] [place] [address] Jan, [facility] [address] [id number] [place] [address] Dec, [facility] [address] [id number] [place] [address] Dec, [facility] [address] [id number] [place] [address] Dec, [facility] [address] [id number] [place] [address] Dec, [facility] [address] [id number] [place] [address] Dec, [facility] [address] [id number] [place] [address] Dec, [facility] [address] [id number] [place] [address] Dec, [facility] [address] [id number] [place] [address] Dec, [facility] [address] [id number] [place] [address] 08 Dec, 2011 [facility] [address] [id number] [place] [address] 05 Dec, 2011 [facility] [address] [id number] [place] [address] 18 Nov, 2011 [facility] [address] [id number] [place] [address] 13 Nov, 2011 [facility] [address] [id number] [place] [address] 24 Oct, 2011 [facility] [address] [id number] [place] [address] Oct, [facility] [address] [id number] [place] [address] Oct, [facility] [address] [id number] [place] [address] Oct, [facility] [address] [id number] [place] [address] Oct, [facility] [address] [id number] [facility] [address] Oct, [facility] [address] [id number] [place] [address] Oct, [facility] [address] [id number] [facility] [address] Sep, [facility] [address] [id number] [facility] [address] Aug, [facility] [address] [id number] [facility] [address] Aug, [facility] [address] [id number] [place] [address] Aug, [facility] [address] [id number] [place] [address] Aug, [facility] [address] [id number] [place] [address] Aug, [facility] [address] [id number] [place] [address] July, [facility] [address] [id number] [place] [address] July, [facility] [address] [id number] [place] [address] July, [facility] [address] [id number] [place] [address] Jun, [facility] [address] [id number] [place] [address] Jun, [facility] [address] [id number] [place] [address] Jun, [facility] [address] [id number] [place] [address] Jun, [facility] [address] [id number] [place] [address] May, [facility] [address] [id number] [facility] [address] 30 May, 2011 [facility] [address] [facility] [id number] [place] [address] 29 May, 2011 [facility] [address] [id number] [place] [address] 28 May, 2011 [facility] [address] [id number] [place] [address] 23 May, 2011 [facility] [address] [id number] [place] [address] 22 May, 2011 [facility] [address] [id number] [place] [address] 21 May, 2011 [facility] [address] [id number] [place] [address] 19 May, 2011 [facility] [address] [id number] [place] [address] 08 May, 2011 [facility] [address] [id number] [place] [address] 05 May, 2011 [facility] [address] [id number] [place] [address] 02 May, 2011 [facility] [address] [id number] [place] [address] May, [facility] [address] [id number] [place] [address] 31 Mar, 2011 [facility] [address] [id number] [place] [address] Mar, [facility] [address] [id number] [place] [address] 28 Feb, 2011 [facility] [address] [id number] [place] [address] Feb, [facility] [address] [id number] [place] [address] Feb, [facility] [address] [id number] [place] [address] 15 Feb, 2011 [facility] [address] [id number] [place] [address] 13 Feb, 2011 [facility] [address] [id number] [place] [address] 13 Feb, 2011 [facility] [address] [id number] [place] [address] Feb, [facility] [address] [id number] [place] [address] Jan, [facility] [address] [id number] [place] [address] Jan, [facility] [address] [id number] [place] [address] Jan, [facility] [address] [id number] [place] [address] Jan, [facility] [id number] [place] [address] Jan, [facility] [address] [id number] [place] [address] Jan, [facility] [address] [id number] [place] [address] Dec, [facility] [address] [id number] [place] [address] Dec, [facility] [address] [id number] [place] [address] Dec, [facility] [address] [id number] [place] [address] July, [facility] [address] [id number] [place] [address] July, [facility] [address] [id number] [place] [address] 08 Feb, 2010 [facility] [address] [id number] [place] [address] Jan, [facility] [address] [id number] [place] [address] Dec, [facility] [address] [id number] [place] [address] Dec, [facility] [address] [id number] [place] [address] Sep, [facility] [address] [id number] [place] [address] Aug, [facility] [address] [id number] [place] [address] Jun, [facility] [address] [id number] [place] [address] Jun, [facility] [address] [id number] [place] [address] Jan, [facility] [address] [id number] [place] [address] Jan, [facility] [address] [id number] [place] [address] Jan, [facility] [address] [id number] [place] [address] Jan, [facility] [address] [id number] [place] [address] Dec, [facility] [address] [id number] [place] [address] Dec, [facility] [address] [id number] [place] [address] Dec, [facility] [address] [id number] [place] [address] Nov, [facility] [address] [id number] [place] [address] July, [facility] [address] [id number] [place] [address] May, [facility] [address] [id number] [place] [address] Apr, [facility] [address] [facility] [id number] [place] [address] Feb, [facility] [address] [facility] [id number] [place] [address] Dec, IMMUNIZATIONS No Known Immunizations SOCIAL HISTORY [...]
--- OUTSIDE RECORDS SUMMARY | 2019-06-22 19:39 | XMS REPORT ---
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 Active 691255346 Problem Diabetes E11.9 Active 918599926 Problem Type 2 diabetes mellitus with complication E11.8 Active 853391819 Problem Post laminectomy syndrome M96.1 Acti ve 04347330 Problem Bipolar 1 disorder F31.9 Active 3 54248369 Problem New daily persistent headache G44.52 Active 391836107 Problem Type 2 diabetes mellitus with hyperglycemia E11.65 Active 62684800 Problem Other chronic pain G89.29 Active 8 4167769 Problem Essential hypertension I10 Active 49031017 Problem Acute bilateral low back pain with right-sided sciatica M54.41 Active 194902529 Problem Bipolar disorder, in partial remission, most rec ent episode manic F31.73 Active 43376629 Problem Seasonal allergic rhinitis due to pollen J30.1 Active 46438281 Problem Hyperlipidemia, unspecified E78.5 Ac tive 94040396 Problem Eye exam normal Z01.00 Active 2438 27350 Problem Extreme poverty Z59.5 Active 1140 3006 Problem Lumbago with sciatica, left side M54.42 Active 913281417 Problem Hypertriglyceridemia E78.1 Active 103904648 Problem Insulin long-term use Z79.4 Active 895063508 Problem Rhinosinusitis J32.9 Active 22177 000 ALLERGIES No Information ENCOUNTERS Encounter Location Date Diagnosis [facility] [id number] [place] [address] Jun, [facility] [id number] [place] [address] May, [facility] [id number] [place] [address] May, [facility] [id number] [place] [address] May, [facility] [id number] [place] [address] Apr, Bipolar 1 disorder F31.9 ; Borderline in tellectual functioning R41.83 and Extreme poverty Z59.5 [facility] [address] [facility] [id number] [address] [place] [address] Apr, Seasonal allergic rhinitis d ue to pollen J30.1 [facility] [id number] [place] [address] Apr, Essential hypertension I10 and Diabetes E11.9 [facility] [id number] [place] [address] Apr, [place] [address] [address] Mar, Bipolar 1 disorder F31.9 ; Borderline in tellectual functioning R41.83 and Extreme poverty Z59.5 [place] [address] [address] Mar, Exercise counseling Z71.82 [facility] [id number] [place] [address] Mar, [place] [address] [address] Mar, Bipolar disorder, in partial remission, most recent episode manic F31.73 and 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 [place] [address] [address] Mar, [place] [id number] [place] [address] Mar, Exercise counseling Z71.82 [place] [address] [address] Feb, Bipolar 1 disorder F31.9 ; Borderline in tellectual functioning R41.83 and Extreme poverty Z59.5 [facility] [address] [address] Feb, [facility] [address] [address] Feb, Type 2 diabetes mellitus with complicati on E11.8 [facility] [address] [facility] [id number] [address] [place] [address] Feb, Acute low back pain without sciatica, unspecified back pain laterality M54.5 [place] [address] [address] Feb, Bipolar 1 disorder F31.9 ; Borderline in tellectual functioning R41.83 and Extreme poverty Z59.5 [place] [address] [address] Jan, Bipolar 1 disorder F31.9 ; Borderline in tellectual functioning R41.83 and Extreme poverty Z59.5 [place] [address] [address] Jan, [place] [address] [address] Jan, Type 2 diabetes mellitus with complicati on E11.8 [place] [address] [address] Jan, Type 2 diabetes mellitus with complicati on E11.8 ; Dysuria R30.0 and Diarrhea, unspecified type R19.7 [place] [address] [address] 07 Jan, 2019 Bipolar 1 disorder F31.9 ; Borderline in tellectual functioning R41.83 and Extreme poverty Z59.5 [facility] [id number] [place] [address] Dec, [facility] [address] [address] Dec, [facility] [address] [address] Dec, [facility] [address] [address] Dec, [facility] [address] [address] Dec, Rhinosinusitis J32.9 [facility] [address] [address] Dec, [facility] [address] [address] Dec, Bipolar 1 disorder F31.9 ; Borderline in tellectual functioning R41.83 and Extreme poverty Z59.5 [place] [address] [address] Dec, Type 2 diabetes mellitus with complicati on E11.8 and Type 2 diabetes mellitus with hyperglycemia E11.65 [place] [address] [address] Dec, [facility] [address] [address] Dec, Type 2 diabetes mellitus with complicati on E11.8 ; Insulin long-term use Z79.4 ; Hyperglycemia R73.9 and Yeast infection B37.9 [facility] [address] [address] Dec, Encounter for immunization Z23 [place] [address] [address] Nov, [facility] [address] [address] Nov, Bipolar 1 disorder F31.9 ; Borderline in tellectual functioning R41.83 and Extreme poverty Z59.5 [facility] [id number] [place] [address] Nov, [facility] [address] [address] Nov, [facility] [address] [address] Nov, Borderline intellectual functioning R41. 83 and Bipolar disorder, in partial remission, most recent episode manic F31.73 [facility] [id number] [place] [address] Nov, Epigastric abdominal pain R1 0.13 [facility] [address] [address] Nov, Bipolar 1 disorder F31.9 ; Borderline in tellectual functioning R41.83 and Extreme poverty Z59.5 [facility] [id number] [place] [address] Oct, Dysuria R30.0 and Acute cyst itis without hematuria N30.00 [facility] [id number] [place] [address] Oct, [facility] [address] [address] Oct, [facility] [address] [address] Oct, Bipolar 1 disorder F31.9 ; Borderline in tellectual functioning R41.83 and Extreme poverty Z59.5 [facility] [address] [address] Oct, [facility] [address] [address] Oct, [facility] [address] [address] Oct, Bipolar disorder, in partial remission, most recent episode manic F31.73 and 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 [facility] [id number] [place] [address] Oct, Bipolar 1 disorder F31.9 ; Borderline in tellectual functioning R41.83 and Extreme poverty Z59.5 [facility] [id number] [place] [address] Oct, Diarrhea, unspecified type R19.7 [facility] [address] [id number] [place] [id number] Sep, Dental examination Z01.20 and Dental car ies K02.9 [facility] [address] [facility] [id number] [address] [place] [address] Sep, Mouth pain K13.79 [facility] [id number] [place] [address] Sep, [facility] [address] [address] Sep, Bipolar 1 disorder F31.9 ; Borderline in tellectual functioning R41.83 and Extreme poverty Z59.5 [facility] [id number] [place] [address] Sep, [facility] [address] [address] Sep, [facility] [address] [address] Sep, Diabetes E11.9 ; Hyperglycemia R73.9 ; L eliseo term current use of insulin Z79.4 and Diarrhea, unspecified type R19.7 [facility] [address] [address] Sep, [facility] [address] [address] Sep, Bipolar 1 disorder F31.9 ; Borderline in tellectual functioning R41.83 and Extreme poverty Z59.5 [facility] [address] [address] Sep, [facility] [address] [address] Sep, [place] [address] [address] Aug, Bipolar 1 disorder F31.9 ; Borderline in tellectual functioning R41.83 and Extreme poverty Z59.5 [place] [address] [address] Aug, Exercise counseling Z71.82 [place] [address] [address] Aug, Bipolar 1 disorder F31.9 ; Borderline in tellectual functioning R41.83 and Extreme poverty Z59.5 [place] [address] [address] Aug, Borderline intellectual functioning R41. 83 and Bipolar disorder, in partial remission, most recent episode manic F31.73 [place] [address] [address] Aug, Low back pain M54.5 [place] [address] [address] Aug, Borderline intellectual functioning R41. 83 and Bipolar disorder, in partial remission, most recent episode manic F31.73 [place] [address] [address] July, Acute superficial gastritis without hemo rrhage K29.00 ; Low back pain M54.5 and Other chronic pain G89.29 [facility] [address] [address] July, [place] [address] [address] July, [facility] [id number] [place] [address] Jun, [facility] [address] [facility] [id number] [address] [place] [address] Jun, Bilateral lower extremity ed epi R60.0 [place] [address] [address] Jun, Borderline intellectual functioning R41. 83 and Bipolar disorder, in partial remission, most recent episode manic F31.73 [place] [address] [address] Jun, [place] [address] [address] May, Bronchitis J40 [place] [address] [address] 14 May, 2018 Screening for breast cancer Z12.31 and E ncounter for immunization Z23 [place] [address] [address] 06 May, 2018 Bipolar 1 disorder F31.9 ; Borderline in tellectual functioning R41.83 and Extreme poverty Z59.5 [place] [address] [address] Apr, [place] [address] [address] 07 Apr, 2018 Bipolar 1 disorder F31.9 ; Borderline in tellectual functioning R41.83 and Extreme poverty Z59.5 [place] [address] [address] 05 Apr, 2018 Irritable bowel syndrome with diarrhea K 58.0 and Dental abscess K04.7 [place] [address] [address] Mar, [place] [address] [address] Mar, [place] [address] [address] Mar, Bipolar 1 disorder F31.9 ; Borderline in tellectual functioning R41.83 and Extreme poverty Z59.5 [address] [address] [address] Mar, Hypertriglyceridemia E78.1 [place] [address] [address] Mar, Borderline intellectual functioning R41. 83 and Bipolar disorder, in partial remission, most recent episode manic F31.73 [place] [address] [address] Mar, Bipolar 1 disorder F31.9 ; Borderline in tellectual functioning R41.83 and Extreme poverty Z59.5 [place] [address] [address] Feb, Generalized abdominal pain R10.84 and Di arrhea, unspecified type R19.7 [place] [address] [address] Feb, [address] [address] Feb, Myalgia M79.10 and Nausea R11.[address] [address] Feb, Bipolar 1 disorder F31.9 ; Borderline in tellectual functioning R41.83 and Extreme poverty Z59.5 [place] [address] [address] Feb, [address] [id number] Feb, Diabetes E11.9 ; Hyperglycemia R73.9 and Diarrhea, unspecified R19.[address] [address] Feb, Diarrhea, unspecified type R19.7 ; Abdom inal pain R10.9 and Encounter for immunization Z23 [address] [address] Jan, Bipolar 1 disorder F31.9 ; Borderline in tellectual functioning R41.83 and Extreme poverty Z59.5 [place] [address] [address] Dec, Bipolar 1 disorder F31.9 ; Borderline in tellectual functioning R41.83 and Extreme poverty Z59.5 [place] [address] [address] Nov, [place] [address] [address] Nov, Hypertriglyceridemia E78.1 [place] [address] [address] Nov, Bipolar 1 disorder F31.9 ; Borderline in tellectual functioning R41.83 and Extreme poverty Z59.5 [place] [address] [address] Nov, Type 2 diabetes mellitus with complicati on E11.8 [place] [address] [address] Nov, Borderline intellectual functioning R41. 83 and Bipolar disorder, in partial remission, most recent episode manic F31.73 [place] [address] [address] Nov, Type 2 diabetes mellitus with complicati on E11.8 [place] [address] [address] Nov, Bipolar 1 disorder F31.9 ; Borderline in tellectual functioning R41.83 and Extreme poverty Z59.5 [place] [address] [address] 10 Nov, 2017 Type 2 diabetes mellitus with complicati on E11.8 ; Pain of left upper arm M79.622 ; Pain in right upper arm M79.621 ; Hyperglycemia R73.9 ; Lumbago with sciatica, left side M54.42 and Other chronic pain G89.29 [place] [address] [address] Oct, Bipolar 1 disorder F31.9 ; Borderline in tellectual functioning R41.83 and Extreme poverty Z59.5 [place] [address] [address] Oct, Type 2 diabetes mellitus with hyperglyce didi E11.65 ; MCC current use of insulin Z79.4 and Other acute gastritis without hemorrhage K29.00 [place] [address] [address] Oct, Bipolar 1 disorder F31.9 ; Borderline in tellectual functioning R41.83 and Extreme poverty Z59.5 [place] [address] [address] Sep, Diarrhea, unspecified R19.7 and Vomiting , unspecified R11.10 [place] [address] [address] Aug, Type 2 diabetes mellitus with complicati on E11.8 [place] [address] [address] Aug, [place] [address] [address] Aug, Bipolar 1 disorder F31.9 ; Borderline in tellectual functioning R41.83 and Extreme poverty Z59.5 [place] [address] [address] Aug, Borderline intellectual functioning R41. 83 and Bipolar disorder, in partial remission, most recent episode manic F31.73 [place] [address] [address] Aug, Bipolar 1 disorder F31.9 [place] [address] [address] Aug, [place] [address] [address] Aug, [place] [address] [address] Aug, Bipolar 1 disorder F31.9 ; Borderline in tellectual functioning R41.83 and Extreme poverty Z59.5 [place] [address] [address] July, Type 2 diabetes mellitus with complicati on E11.8 [place] [address] [id number] July, Bipolar 1 disorder F31.9 ; Borderline in tellectual functioning R41.83 and Extreme poverty Z59.5 [place] [address] [address] Jun, Bipolar 1 disorder F31.9 ; Borderline in tellectual functioning R41.83 and Extreme poverty Z59.5 [place] [address] [address] Jun, Bipolar 1 disorder F31.9 ; Borderline in tellectual functioning R41.83 and Extreme poverty Z59.5 [place] [address] [address] Jun, Bipolar 1 disorder F31.9 ; Borderline in tellectual functioning R41.83 and Extreme poverty Z59.5 [place] [address] [address] May, Urinary tract infection without hematuri a, site unspecified N39.0 [place] [address] [address] May, Bipolar 1 disorder F31.9 ; Borderline in tellectual functioning R41.83 and Extreme poverty Z59.5 [place] [address] [address] Apr, Diabetes E11.9 and Breast cancer screeni ng Z12.31 [place] [address] [address] Apr, Bipolar 1 disorder F31.9 and 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 [place] [address] [address] Mar, Bipolar 1 disorder F31.9 ; Borderline in tellectual functioning R41.83 and Extreme poverty Z59.5 [place] [address] [address] Mar, New daily persistent headache G44.52 ; L eg pain 729.5 and History of carpal tunnel release Z98.890 [place] [address] [address] Mar, Hyperlipidemia, unspecified E78.5 [place] [address] [address] Mar, Bipolar 1 disorder F31.9 ; Borderline in tellectual functioning R41.83 and Extreme poverty Z59.5 [place] [address] [address] Feb, Bipolar 1 disorder F31.9 ; Borderline in tellectual functioning R41.83 and Extreme poverty Z59.5 [place] [address] [address] Feb, Diabetes E11.9 [place] [address] [address] Feb, Viral syndrome B34.[address] [address] Jan, Other viral agents as the cause of disea ses classified elsewhere B97.89 and Acute upper respiratory infection, unspecified J06.9 [place] [address] [address] Jan, Bipolar 1 disorder F31.9 and Borderline intellectual functioning R41.[address] [address] Jan, Bipolar 1 disorder F31.9 ; Borderline in tellectual functioning R41.83 and Extreme poverty Z59.5 [place] [address] [address] Dec, Diabetes E11.9 [place] [address] [address] Dec, Diabetes E11.9 and Encounter for immuniz ation Z23 [place] [address] [address] Dec, Bipolar 1 disorder F31.9 ; Borderline in tellectual functioning R41.83 and Extreme poverty Z59.5 [place] [address] [address] Dec, Back pain M54.9 [place] [address] [address] Nov, [place] [address] [address] Nov, Bipolar 1 disorder F31.9 ; Borderline in tellectual functioning R41.83 and Extreme poverty Z59.5 [place] [address] [address] Nov, Bipolar 1 disorder F31.9 ; Borderline in tellectual functioning R41.83 and Extreme poverty Z59.5 [place] [address] [address] Oct, Borderline intellectual functioning R41. 83 and Bipolar 1 disorder F31.9 [place] [address] [address] Oct, Bipolar 1 disorder F31.9 ; Borderline in tellectual functioning R41.83 and Extreme poverty Z59.5 [place] [address] [address] Oct, Back pain M54.9 [place] [address] [address] Oct, Borderline intellectual functioning R41. 83 and Type 2 diabetes mellitus with complication E11.8 [place] [address] [address] Sep, Bipolar 1 disorder F31.9 ; Borderline in tellectual functioning R41.83 and Extreme poverty Z59.5 [place] [address] [address] Sep, Borderline intellectual functioning R41. 83 and Bipolar 1 disorder F31.9 [place] [address] [address] Sep, Bipolar 1 disorder F31.9 ; Borderline in tellectual functioning R41.83 and Extreme poverty Z59.5 [place] [address] [address] Aug, Diabetes E11.9 ; Hyperlipidemia, unspeci fied E78.5 and Lumbar radiculopathy M54.16 [place] [address] [address] Aug, Bipolar 1 disorder F31.9 ; Borderline in tellectual functioning R41.83 and Extreme poverty Z59.5 [place] [address] [address] Aug, [place] [address] [address] Aug, [place] [address] [address] Aug, [place] [address] [address] July, [place] [address] [address] July, Acute bilateral low back pain with right -sided sciatica M54.41 [place] [address] [address] July, Bipolar 1 disorder F31.9 ; Borderline in tellectual functioning R41.83 and Extreme poverty Z59.5 [place] [address] [address] July, Back pain M54.9 and Diabetes E11.9 [place] [address] [address] Jun, Bipolar 1 disorder F31.9 ; Borderline in tellectual functioning R41.83 and Extreme poverty Z59.5 [place] [id number] [place] [address] Jun, Bipolar 1 disorder F31.9 ; Borderline in tellectual functioning R41.83 and Extreme poverty Z59.5 [place] [address] [address] May, Visit for pelvic exam Z01.419 ; Acute va ginitis N76.0 and Diabetes E11.9 [place] [address] [address] May, Bipolar 1 disorder F31.9 ; Borderline in tellectual functioning R41.83 and Extreme poverty Z59.5 [place] [address] [address] May, [place] [address] [address] May, [place] [address] [address] May, Bipolar 1 disorder F31.9 ; Borderline in tellectual functioning R41.83 and Extreme poverty Z59.5 [place] [address] [address] May, Hyperlipidemia, unspecified E78.5 [place] [address] [address] Apr, Breast cancer screening Z12.39 [place] [address] [address] Mar, [place] [address] [address] Mar, Bipolar disorder, current episode mixed, unspecified F31.60 [place] [address] [address] Mar, Bipolar 1 disorder F31.9 ; Borderline in tellectual functioning R41.83 and Extreme poverty Z59.5 [place] [address] [address] 30 Feb, 2016 Acute nasopharyngitis J00 [place] [address] [address] 27 Feb, 2016 Dental examination Z01.20 [place] [address] [address] 21 Feb, 2016 Dental cavities K02.9 and Chronic period ontitis, unspecified K05.30 [place] [address] [address] 13 Feb, 2016 Low back pain M54.5 and Extreme poverty Z59.5 [place] [address] [address] 08 Feb, [address] [address] 05 Feb, 2016 Routine gynecological examination V72.31 ; Breast cancer screening Z12.39 and Herpes simplex type [address] [address] Feb, Diabetes E11.[address] [address] Feb, Encounter for dental examination and leti aning without abnormal findings Z01.20 [place] [address] [address] Jan, Hyperlipidemia, unspecified E78.5 [place] [address] [address] Jan, Bipolar 1 disorder F31.9 ; Borderline in tellectual functioning R41.83 and Extreme poverty Z59.5 [place] [address] [address] Jan, Diabetes E11.9 [place] [address] [address] Jan, Diabetes E11.9 [place] [address] [address] 14 Dec, 2015 Bipolar 1 disorder F31.9 ; Borderline in tellectual functioning R41.83 and Extreme poverty Z59.5 [place] [address] [address] 13 Dec, 2015 Bipolar disorder, current episode mixed, unspecified F31.60 and 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 [place] [address] [address] 16 Nov, 2015 Bipolar 1 disorder F31.9 ; Borderline in tellectual functioning R41.83 ; Extreme poverty Z59.5 and Non compliance with medical treatment Z91.19 [place] [address] [address] Oct, [place] [address] [address] Oct, Dental caries K02.9 [place] [address] [address] Oct, Low back pain M54.5 and Other chronic pa in G89.29 [place] [address] [address] Oct, Bipolar 1 disorder F31.9 ; Borderline in tellectual functioning R41.83 ; Extreme poverty Z59.5 and Non compliance with medical treatment Z91.19 [place] [address] [address] Oct, [place] [address] [address] Oct, [place] [address] [address] Oct, Dental examination Z01.20 [place] [address] [address] Oct, Bipolar 1 disorder F31.9 ; Borderline in tellectual functioning R41.83 ; Extreme poverty Z59.5 and Non compliance with medical treatment Z91.19 [place] [id number] [place] [address] Oct, [place] [address] [address] Sep, Type 2 diabetes mellitus with complicati on E11.8 [place] [id number] [place] [address] Sep, Bipolar disorder, current episode mixed, unspecified F31.60 [place] [address] [address] Sep, Bipolar disorder, current episode mixed, unspecified F31.60 [place] [id number] [place] [address] Sep, Bipolar disorder, in partial remission, most recent episode manic F31.73 ; 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 ; Extreme poverty Z59.5 and Non compliance with medical treatment Z91.19 [place] [id number] [place] [address] Aug, Bipolar disorder, in partial remission, most recent episode manic F31.73 ; 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 ; Extreme poverty Z59.5 and Non compliance with medical treatment Z91.19 [place] [id number] [place] [address] Aug, Bipolar disorder, in partial remission, most recent episode manic F31.73 ; 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 ; Extreme poverty Z59.5 and Non compliance with medical treatment Z91.19 [place] [id number] [place] [address] Aug, [place] [address] [address] July, Bipolar disorder, in partial remission, most recent episode manic F31.73 ; 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 ; Extreme poverty Z59.5 and Non compliance with medical treatment Z91.19 [place] [id number] [place] [address] July, Bipolar disorder, current episode mixed, unspecified F31.60 [place] [address] [address] July, Bipolar disorder, in partial remission, most recent episode manic F31.73 ; 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 ; Extreme poverty Z59.5 and Non compliance with medical treatment Z91.19 [place] [address] [address] July, [facility] current use of opiate analgesi c Z79.891 and Chronic pain G89.29 [place] [address] [address] Jun, [facility] current use of opiate analgesi c Z79.891 and Bipolar 1 disorder F31.9 [place] [address] [address] Jun, [place] [address] [address] Jun, [place] [address] [address] Jun, [place] [address] [address] Jun, Bipolar disorder, in partial remission, most recent episode manic F31.73 ; 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 and Non compliance with medical treatment Z91.19 [place] [address] [address] May, Bipolar disorder, in partial remission, most recent episode manic F31.73 ; 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 and Non compliance with medical treatment Z91.19 [place] [address] [address] May, Bipolar disorder, in partial remission, most recent episode manic F31.73 [place] [address] [address] May, Diabetes E11.9 and Chronic pain G89.29 [place] [address] [address] 14 May, 2015 [place] [address] [address] May, Bipolar disorder, in partial remission, most recent episode manic F31.73 ; Non compliance with medical treatment Z91.19 and 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 [place] [address] [address] 08 May, 2015 Type 2 diabetes mellitus with complicati on E11.8 and Back pain M54.[address] [address] May, Bipolar disorder, in partial remission, most recent episode manic F31.73 and 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 [place] [address] [address] Apr, [place] [address] [address] Apr, [place] [address] [address] Apr, [address] [address] 09 Apr, 2015 Diabetes E11.9 ; Irritable bowel syndrom e with diarrhea K58.0 and Lumbar radiculopathy M54.16 [place] [address] [address] Apr, Breast screening Z12.[address] [address] Apr, Bipolar disorder, in partial remission, most recent episode manic F31.73 ; Non compliance with medical treatment Z91.19 and 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 [place] [address] [address] Mar, Edema, unspecified type R60.9 and Type 2 diabetes mellitus with complication E11.8 [place] [address] [address] Mar, Bipolar disorder, in partial remission, most recent episode manic F31.73 ; Non compliance with medical treatment Z91.19 ; 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 and Extreme poverty Z59.5 [place] [address] [address] 14 Mar, 2015 Bipolar disorder, current episode mixed, unspecified F31.60 ; 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 ; Extreme poverty Z59.5 and Generalized anxiety disorder F41.1 [place] [address] [address] 12 Mar, 2015 Bipolar disorder, in partial remission, most recent episode manic F31.73 ; 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 and Extreme poverty Z59.5 [place] [address] [address] Feb, Bipolar disorder, in partial remission, most recent episode manic F31.73 ; 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 and Extreme poverty Z59.5 [place] [address] [address] Feb, Bipolar disorder, in partial remission, most recent episode manic F31.73 ; 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 and Extreme poverty Z59.5 [place] [address] [address] Feb, [place] [address] [address] Jan, Type 2 diabetes mellitus with complicati on E11.8 and Petechiae R23.3 [place] [address] [address] [address] Jan, Type 2 diabetes mellitus with complicati on E11.8 ; Edema, unspecified R60.9 ; Petechiae R23.3 and Diabetes E11.9 [place] [address] [address] Jan, Bipolar disorder, in partial remission, most recent episode manic F31.73 ; 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 and Extreme poverty Z59.5 [place] [address] [address] Jan, Bipolar disorder, in partial remission, most recent episode manic F31.73 ; 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 and Extreme poverty Z59.5 [place] [address] [address] Dec, Bipolar disorder, in partial remission, most recent episode manic F31.73 [place] [address] [address] Dec, Edema, due to unspecified malnutrition t ype, unspecified edema R60.9 and Essential hypertension I10 [place] [address] [address] [address] Dec, Bipolar disorder, in partial remission, most recent episode manic F31.73 [place] [address] [address] Nov, Bipolar I disorder, most recent episode (or current) mixed, unspecified 296.60 [place] [address] [address] Nov, Stress incontinence, female 625.6 ; Back pain 724.5 and Leg pain 729.5 [place] [address] [address] Nov, Generalized anxiety disorder 300.02 and Bipolar II disorder 296.89 [place] [address] [address] Nov, Bipolar I disorder, most recent episode (or current) mixed, unspecified 296.60 [place] [address] [address] Oct, [place] [address] [address] Oct, [place] [address] [address] Oct, [facility] [address] [address] Oct, Bipolar I disorder, most recent episode (or current) mixed, unspecified 296.60 [facility] [address] [address] Sep, Diabetes 250.00 [facility] [address] [address] Sep, Bipolar I disorder, most recent episode (or current) mixed, unspecified 296.60 [facility] [address] [address] Sep, [facility] [address] [address] Sep, [facility] [address] [address] Sep, Bipolar I disorder, most recent episode (or current) mixed, unspecified 296.60 [facility] [address] [address] Sep, Bipolar I disorder, most recent episode (or current) mixed, unspecified 296.60 [facility] [address] [address] Sep, [facility] [address] [address] Sep, Anxiety 300.00 ; Diabetes 250.00 and Hyp erlipidemia 272.4 [facility] [address] [address] Aug, [facility] [address] [address] Aug, [facility] [address] [address] Aug, [facility] [address] [address] Aug, Bipolar I disorder, most recent episode (or current) mixed, unspecified 296.60 [facility] [id number] [place] [address] Aug, Generalized anxiety disorder 300.02 and Bipolar II disorder 296.89 [facility] [address] [address] July, Bipolar I disorder, most recent episode (or current) mixed, unspecified 296.60 [facility] [address] [address] July, Cough 786.2 [facility] [address] [address] July, Bipolar I disorder, most recent episode (or current) mixed, unspecified 296.60 [facility] [address] [address] Jun, Diabetes 250.00 [facility] [address] [address] 14 Jun, 2014 [facility] [address] [address] Jun, [facility] [address] [address] May, [facility] [address] [address] May, [facility] [address] [address] May, [facility] [address] [address] May, [facility] [address] [address] May, [facility] [address] [address] May, [facility] [address] [address] Apr, [facility] [address] [address] Apr, [facility] [address] [facility] [id number] [place] [address] Apr, [facility] [address] [facility] [id number] [place] [address] Apr, [facility] [address] [id number] [place] [address] Apr, [facility] [address] [id number] [place] [address] Apr, [facility] [address] [id number] [place] [address] Apr, [facility] [address] [id number] [place] [address] Apr, [facility] [address] [id number] [place] [address] Mar, [facility] [address] [id number] [place] [address] Mar, [facility] [address] [id number] [place] [address] Mar, [facility] [address] [id number] [place] [address] Mar, [facility] [address] [id number] [place] [address] Mar, [facility] [address] [id number] [place] [address] Mar, [facility] [address] [id number] [place] [address] Mar, [facility] [address] [id number] [place] [address] Mar, [facility] [address] [id number] [place] [address] Feb, [facility] [address] [id number] [place] [address] Feb, [facility] [address] [id number] [place] [address] Feb, [facility] [address] [id number] [place] [address] Feb, [facility] [address] [id number] [place] [address] Feb, [facility] [address] [id number] [place] [address] Feb, [facility] [address] [id number] [place] [address] Feb, [facility] [address] [id number] [place] [address] Feb, [facility] [address] [id number] [place] [address] Feb, [facility] [address] [id number] [place] [address] Feb, [facility] [address] [id number] [place] [address] Jan, [facility] [address] [id number] [place] [address] Jan, [facility] [address] [id number] [place] [address] Jan, [facility] [address] [id number] [place] [address] Jan, [facility] [address] [id number] [place] [address] Jan, [facility] [address] [id number] [place] [address] Jan, [facility] [address] [id number] [place] [address] Jan, [facility] [address] [id number] [place] [address] Jan, [facility] [address] [id number] [place] [address] Jan, [facility] [address] [id number] [place] [address] Jan, [facility] [address] [id number] [place] [address] Jan, [facility] [address] [id number] [place] [address] Jan, [facility] [address] [id number] [place] [address] Jan, [facility] [address] [id number] [place] [address] Jan, [facility] [address] [id number] [place] [address] Jan, [facility] [address] [id number] [place] [address] Dec, [facility] [address] [id number] [place] [address] Dec, [facility] [address] [id number] [place] [address] Dec, [facility] [address] [id number] [place] [address] Dec, [facility] [address] [id number] [place] [address] Dec, [facility] [address] [id number] [place] [address] Dec, [facility] [address] [id number] [place] [address] Dec, [facility] [address] [id number] [place] [address] Dec, [facility] [address] [id number] [place] [address] Nov, [facility] [address] [id number] [place] [address] Nov, [facility] [address] [id number] [place] [address] 10 Sep, 2013 [facility] [address] [id number] [place] [address] 10 Nov, 2013 [facility] [address] [facility] [id number] [place] [address] 08 Sep, 2013 [facility] [address] [id number] [place] [address] 08 Sep, 2013 [facility] [address] [facility] [id number] [place] [address] 08 Sep, 2013 [facility] [address] [id number] [place] [address] 08 Sep, 2013 [facility] [address] [id number] [place] [address] 08 Sep, 2013 [facility] [address] [id number] [place] [address] 08 Sep, 2013 [facility] [address] [id number] [place] [address] 04 Sep, 2013 [facility] [address] [id number] [place] [address] 04 Sep, 2013 [facility] [address] [id number] [place] [address] 03 Nov, 2013 [facility] [address] [id number] [place] [address] 02 Nov, 2013 [facility] [address] [id number] [place] [address] 02 Nov, 2013 [facility] [address] [id number] [place] [address] Oct, [facility] [address] [id number] [place] [address] Oct, [facility] [address] [id number] [place] [address] Oct, 2013 [facility] [address] [id number] [place] [address] Oct, [facility] [address] [id number] [place] [address] Oct, [facility] [address] [facility] [id number] [place] [address] Oct, [facility] [address] [facility] [id number] [place] [address] Oct, [facility] [address] [facility] [id number] [place] [address] Oct, [facility] [address] [facility] [id number] [place] [address] Oct, [facility] [address] [facility] [id number] [place] [address] Oct, [facility] [address] [id number] [place] [address] Oct, [facility] [address] [id number] [place] [address] Oct, [facility] [address] [facility] [id number] [place] [address] Oct, [facility] [address] [id number] [place] [address] Oct, [facility] [address] [id number] [place] [address] Sep, [facility] [address] [id number] [place] [address] Sep, [facility] [address] [facility] [id number] [place] [address] Sep, [facility] [address] [facility] [id number] [place] [address] Sep, [facility] [address] [facility] [id number] [place] [address] Sep, [facility] [address] [id number] [place] [address] Sep, [facility] [address] [id number] [place] [address] Sep, [facility] [address] [facility] [id number] [place] [address] Sep, [facility] [address] [id number] [place] [address] Aug, [facility] [address] [id number] [place] [address] Aug, [facility] [address] [id number] [place] [address] Aug, [facility] [address] [facility] [id number] [place] [address] Aug, [facility] [address] [id number] [place] [address] Aug, [facility] [address] [id number] [place] [address] Aug, [facility] [address] [id number] [place] [address] Aug, [facility] [address] [id number] [place] [address] Aug, [facility] [address] [id number] [place] [address] July, [facility] [address] [id number] [place] [address] July, [facility] [address] [id number] [place] [address] July, [facility] [address] [id number] [place] [address] July, [facility] [address] [id number] [place] [address] July, [facility] [address] [id number] [place] [address] July, [facility] [address] [id number] [place] [address] July, [facility] [address] [id number] [place] [address] July, [facility] [address] [id number] [place] [address] Jun, [facility] [address] [id number] [place] [address] Jun, [facility] [address] [id number] [place] [address] Jun, [facility] [address] [id number] [place] [address] Jun, [facility] [address] [id number] [place] [address] Jun, [facility] [address] [id number] [place] [address] Jun, [facility] [address] [id number] [place] [address] Jun, [facility] [address] [id number] [place] [address] Jun, [facility] [address] [id number] [place] [address] Jun, [facility] [address] [id number] [place] [address] Jun, [facility] [address] [id number] [place] [address] Jun, [facility] [address] [id number] [place] [address] Jun, [facility] [address] [facility] [id number] [place] [address] May, [facility] [address] [id number] [place] [address] May, [facility] [address] [id number] [place] [address] May, [facility] [address] [id number] [place] [address] May, [facility] [address] [facility] [id number] [place] [address] 13 May, 2013 [facility] [address] [facility] [id number] [place] [address] 13 May, 2013 [facility] [address] [facility] [id number] [place] [address] 12 May, 2013 [facility] [address] [id number] [place] [address] May, [facility] [address] [facility] [id number] [place] [address] May, [facility] [address] [facility] [id number] [place] [address] May, [facility] [address] [facility] [id number] [place] [address] May, [facility] [address] [id number] [place] [address] May, [facility] [address] [id number] [place] [address] May, [facility] [address] [id number] [place] [address] May, [facility] [address] [facility] [id number] [place] [address] Apr, [facility] [address] [id number] [place] [address] Apr, [facility] [address] [id number] [place] [address] Apr, [facility] [address] [facility] [id number] [place] [address] Apr, [facility] [address] [facility] [id number] [place] [address] Apr, [facility] [address] [id number] [place] [address] Apr, [facility] [address] [id number] [place] [address] Mar, [facility] [address] [id number] [place] [address] Mar, [facility] [address] [id number] [place] [address] Mar, [facility] [address] [id number] [place] [address] Mar, [facility] [address] [id number] [place] [address] Mar, [facility] [address] [id number] [place] [address] Mar, [facility] [address] [id number] [place] [address] Mar, [facility] [address] [id number] [place] [address] Mar, [facility] [address] [id number] [place] [address] Mar, [facility] [address] [id number] [place] [address] Mar, [facility] [address] [id number] [place] [address] Mar, [facility] [address] [id number] [place] [address] Mar, [facility] [address] [id number] [place] [address] Mar, [facility] [address] [id number] [place] [address] Mar, [facility] [address] [id number] [place] [address] Feb, [facility] [address] [id number] [place] [address] Feb, [facility] [address] [facility] [id number] [place] [address] Feb, [facility] [place] [facility] [address] [facility] [id number] [place] [address] 30 Feb, 2012 [facility] [place] [facility] [address] [id number] [place] [address] Feb, 2012 [facility] [place] [facility] [address] [id number] [place] [address] Feb, 2012 [facility] [place] [facility] [address] [id number] [place] [address] Feb, 2012 [facility] [place] [facility] [address] [id number] [place] [address] Feb, 2012 [facility] [place] [facility] [address] [id number] [place] [address] Feb, 2012 [facility] [place] [facility] [address] [id number] [place] [address] Feb, 2012 [facility] [place] [facility] [id number] [place] [address] Feb, 2012 [facility] [place] [facility] [address] [facility] [id number] [place] [address] Feb, [facility] [place] [facility] [address] [facility] [id number] [place] [address] 05 Feb, 2013 [facility] [place] [facility] [address] [id number] [place] [address] 05 Feb, 2013 [facility] [place] [facility] [address] [id number] [place] [address] Feb, 2012 [facility] [place] [facility] [address] [facility] [id number] [place] [address] 05 Feb, 2012 [facility] [place] [facility] [address] [facility] [id number] [place] [address] 24 Dec, 2012 [facility] [place] [facility] [id number] [place] [address] 24 Dec, 2012 [facility] [place] [facility] [address] [facility] [id number] [place] [address] 16 Dec, 2012 [facility] [place] [facility] [address] [facility] [id number] [place] [address] 16 Dec, 2012 [facility] [place] [facility] [address] [facility] [id number] [place] [address] 16 Dec, 2012 [facility] [place] [facility] [address] [facility] [id number] [place] [address] 16 Dec, 2012 [facility] [place] [facility] [address] [facility] [id number] [place] [address] 14 Dec, 2012 [facility] [place] [facility] [address] [facility] [id number] [place] [address] 14 Dec, 2012 [facility] [place] [facility] [address] [facility] [id number] [place] [address] 10 Dec, 2012 [facility] [place] [facility] [address] [facility] [id number] [place] [address] 10 Dec, 2012 [facility] [place] [facility] [address] [facility] [id number] [place] [address] 10 Dec, 2012 [facility] [place] [facility] [address] [facility] [id number] [place] [address] 10 Dec, 2012 [facility] [place] [facility] [address] [facility] [id number] [place] [address] 03 Dec, 2012 [facility] [place] [facility] [address] [facility] [id number] [place] [address] 25 Sep, 2012 [facility] [place] [facility] [address] [facility] [id number] [place] [address] 20 Sep, 2012 [facility] [place] [facility] [address] [facility] [id number] [place] [address] 18 Sep, 2012 [facility] [place] [facility] [address] [facility] [id number] [place] [address] 16 Sep, 2012 [facility] [place] [facility] [address] [facility] [id number] [place] [address] 12 Sep, 2012 [facility] [place] [facility] [address] [facility] [id number] [place] [address] 11 Sep, 2012 [facility] [place] [facility] [address] [facility] [id number] [place] [address] 05 Sep, 2012 [facility] [place] [facility] [address] [facility] [id number] [place] [address] 15 Oct, 2012 [facility] [place] [facility] [address] [id number] [place] [address] Oct, [facility] [place] [facility] [address] [facility] [id number] [place] [address] Sep, [facility] [place] [facility] [address] [id number] [place] [address] Sep, [facility] [place] [facility] [address] [facility] [id number] [place] [address] Sep, [facility] [place] [facility] [address] [id number] [place] [address] Sep, [facility] [place] [facility] [address] [id number] [place] [address] 15 Sep, 2012 [facility] [place] [facility] [address] [id number] [place] [address] Sep, [facility] [place] [facility] [address] [id number] [place] [address] Sep, [facility] [place] [facility] [address] [id number] [place] [address] Aug, [facility] [place] [facility] [address] [id number] [place] [address] Aug, [facility] [place] [facility] [address] [id number] [place] [address] 16 Aug, 2012 [facility] [place] [facility] [address] [id number] [place] [address] 13 Aug, 2012 [facility] [place] [facility] [address] [id number] [place] [address] Aug, [facility] [place] [facility] [address] [id number] [place] [address] 10 Aug, 2012 [facility] [place] [facility] [address] [id number] [place] [address] 04 Aug, 2012 [facility] [place] [facility] [address] [id number] [place] [address] 04 Aug, 2012 [facility] [place] [facility] [address] [id number] [place] [address] July, [facility] [place] [facility] [address] [id number] [place] [address] July, [facility] [place] [facility] [address] [id number] [place] [address] July, [facility] [place] [facility] [address] [facility] [id number] [place] [id number] July, [facility] [place] [facility] [address] [id number] [place] [address] July, [facility] [place] [facility] [address] [id number] [place] [address] Jun, [facility] [place] [facility] [address] [id number] [place] [address] May, [facility] [place] [facility] [id number] [place] [address] May, [facility] [place] [facility] [id number] [place] [address] May, [facility] [place] [facility] [address] [id number] [place] [address] Apr, [facility] [place] [facility] [address] [id number] [place] [address] Apr, [facility] [place] [facility] [id number] [place] [address] Apr, [facility] [place] [facility] [address] [id number] [place] [address] Mar, [facility] [place] [facility] [address] [id number] [place] [address] Mar, [facility] [place] [facility] [id number] [place] [address] Mar, [facility] [place] [facility] [address] [id number] [place] [address] Mar, [facility] [place] [facility] [id number] [place] [address] Mar, [facility] [place] [facility] [address] [id number] [place] [address] Mar, [facility] [place] [facility] [address] [id number] [place] [address] Mar, [facility] [place] [facility] [address] [id number] [place] [address] Feb, [facility] [place] [facility] [address] [id number] [place] [address] Feb, [facility] [place] [facility] [address] [id number] [place] [address] Feb, [facility] [place] [facility] [address] [id number] [place] [address] Feb, [facility] [place] [facility] [address] [id number] [place] [address] Feb, [facility] [place] [facility] [address] [id number] [place] [address] Feb, [facility] [place] [facility] [address] [id number] [place] [address] Feb, [facility] [place] [facility] [address] [id number] [place] [address] Feb, [facility] [place] [facility] [address] [id number] [place] [address] Jan, [facility] [place] [facility] [address] [id number] [place] [address] Jan, [facility] [place] [facility] [address] [id number] [place] [address] Jan, [facility] [place] [facility] [address] [id number] [place] [address] Jan, [facility] [place] [facility] [address] [id number] [place] [address] Jan, [facility] [place] [facility] [address] [id number] [place] [address] Jan, [facility] [place] [facility] [address] [id number] [place] [address] Jan, [facility] [place] [facility] [address] [id number] [place] [address] Jan, [facility] [place] [facility] [address] [id number] [place] [address] Jan, [facility] [place] [facility] [address] [id number] [place] [address] Jan, [facility] [place] [facility] [address] [id number] [place] [address] Jan, [facility] [place] [facility] [address] [id number] [place] [address] Jan, [facility] [place] [facility] [address] [id number] [place] [address] Jan, [facility] [place] [facility] [address] [id number] [place] [address] Jan, [facility] [place] [facility] [id number] [place] [address] Jan, [facility] [place] [facility] [address] [id number] [place] [address] Jan, [facility] [place] [facility] [address] [id number] [place] [address] Dec, [facility] [place] [facility] [address] [id number] [place] [address] Dec, [facility] [place] [facility] [address] [id number] [place] [address] Dec, [facility] [place] [facility] [address] [id number] [place] [address] Dec, [facility] [place] [facility] [id number] [place] [address] Dec, [facility] [place] [facility] [address] [id number] [place] [address] Dec, [facility] [place] [facility] [address] [id number] [place] [address] Dec, [facility] [place] [facility] [address] [facility] [id number] [place] [address] Dec, [facility] [place] [facility] [address] [id number] [place] [address] 08 Dec, 2011 [facility] [place] [facility] [address] [id number] [place] [address] 05 Dec, 2011 [facility] [place] [facility] [address] [id number] [place] [address] 18 Nov, 2011 [facility] [place] [facility] [address] [id number] [place] [address] 13 Nov, 2011 [facility] [place] [facility] [address] [id number] [place] [address] 24 Oct, 2011 [facility] [place] [facility] [address] [id number] [place] [address] Oct, [facility] [place] [facility] [address] [id number] [place] [address] 17 Oct, 2011 [facility] [place] [facility] [address] [id number] [place] [address] 16 Oct, 2011 [facility] [place] [facility] [address] [id number] [place] [address] Oct, [facility] [place] [facility] [address] [id number] [place] [address] Oct, [facility] [place] [facility] [address] [id number] [place] [address] Oct, [facility] [place] [facility] [address] [id number] [place] [address] Sep, [facility] [place] [facility] [address] [id number] [place] [address] Aug, [facility] [place] [facility] [address] [id number] [place] [address] Aug, [facility] [place] [facility] [address] [id number] [place] [address] Aug, [facility] [place] [facility] [address] [id number] [place] [address] Aug, [facility] [place] [facility] [address] [facility] [id number] [place] [address] Aug, [facility] [place] [facility] [address] [id number] [place] [address] July, [facility] [place] [facility] [address] [id number] [place] [address] July, [facility] [place] [facility] [address] [id number] [place] [address] July, [facility] [place] [facility] [address] [facility] [id number] [place] [address] Jun, [facility] [place] [facility] [address] [id number] [place] [address] Jun, [facility] [place] [facility] [address] [id number] [place] [address] Jun, [facility] [place] [facility] [address] [id number] [place] [address] Jun, [facility] [place] [facility] [address] [id number] [place] [address] May, [facility] [place] [facility] [address] [id number] [place] [address] May, [facility] [place] [facility] [address] [id number] [place] [address] May, [facility] [place] [facility] [address] [id number] [place] [address] May, [facility] [place] [facility] [address] [id number] [place] [address] May, [facility] [place] [facility] [address] [id number] [place] [address] May, [facility] [place] [facility] [address] [id number] [place] [address] May, [facility] [place] [facility] [address] [id number] [place] [address] May, [facility] [place] [facility] [address] [id number] [place] [address] 08 May, 2011 [facility] [place] [facility] [address] [id number] [place] [address] May, [facility] [place] [facility] [address] [id number] [place] [address] May, [facility] [place] [facility] [address] [id number] [place] [address] May, [facility] [place] [facility] [address] [id number] [place] [address] Mar, [facility] [place] [facility] [address] [id number] [place] [address] Mar, [facility] [place] [facility] [address] [id number] [place] [address] Feb, [facility] [place] [facility] [address] [id number] [place] [address] Feb, [facility] [place] [facility] [address] [id number] [place] [address] 20 Feb, 2011 [facility] [place] [facility] [address] [id number] [place] [address] 15 Feb, 2011 [facility] [place] [facility] [address] [id number] [place] [address] Feb, [facility] [place] [facility] [address] [id number] [place] [address] 13 Feb, 2011 [facility] [place] [facility] [address] [id number] [place] [address] 13 Feb, 2011 [facility] [place] [facility] [address] [id number] [place] [address] 28 Jan, 2011 [facility] [place] [facility] [id number] [place] [address] 23 Jan, 2011 [facility] [place] [facility] [address] [id number] [place] [address] 22 Jan, 2011 [facility] [place] [facility] [address] [id number] [place] [address] 17 Jan, 2011 [facility] [place] [facility] [address] [id number] [place] [address] Jan, [facility] [place] [facility] [address] [id number] [place] [address] Jan, [facility] [place] [facility] [address] [id number] [place] [address] Dec, [facility] [place] [facility] [address] [id number] [place] [address] Dec, [facility] [place] [facility] [address] [id number] [place] [address] Dec, [facility] [place] [facility] [address] [id number] [place] [address] July, [facility] [place] [facility] [address] [id number] [place] [address] July, [facility] [place] [facility] [address] [id number] [place] [address] Feb, [facility] [place] [facility] [address] [id number] [place] [address] Jan, [facility] [place] [facility] [address] [id number] [place] [address] Dec, [facility] [place] [facility] [address] [id number] [place] [address] Dec, [facility] [place] [facility] [address] [id number] [place] [address] Sep, [facility] [place] [facility] [address] [id number] [place] [address] Aug, [facility] [place] [facility] [address] [id number] [place] [address] Jun, [facility] [place] [facility] [address] [id number] [place] [address] Jun, [facility] [place] [facility] [address] [id number] [place] [address] Jan, [facility] [place] [facility] [address] [id number] [place] [address] Jan, [facility] [address] [id number] [place] [address] Jan, [facility] [address] [id number] [place] [address] Jan, [facility] [address] [id number] [place] [address] Dec, [facility] [id number] [place] [address] Dec, [facility] [address] [id number] [place] [address] Dec, [facility] [id number] [place] [address] Nov, [facility] [address] [id number] [place] [address] July, [facility] [id number] [place] [address] May, [facility] [address] [id number] [place] [address] Apr, [facility] [id number] [place] [address] Feb, [facility] [address] [id number] [place] [address] Dec, IMMUNIZATIONS No Known Immunizations SOCIAL HISTORY Never Assessed REASON FOR VISIT PLAN OF CARE VITAL SIGNS MEDICATIONS Unknown Medications RESULTS No Results PROCEDURES Procedure Date Ordered Result Body Site PSYTX PT&/FAMILY 45 MINUTES May 05, 2013 INSTRUCTIONS MEDICATIONS ADMINISTERED No Known Medications [...]
--- OUTSIDE RECORDS SUMMARY | 2019-06-22 19:39 | XMS REPORT ---
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 Active 553231175 Problem Diabetes E11.9 Active 352326584 Problem Type 2 diabetes mellitus with complication E11.8 Active 651193683 Problem Post laminectomy syndrome M96.1 Acti ve 17060435 Problem Bipolar 1 disorder F31.9 Active 3 96836248 Problem New daily persistent headache G44.52 Active 820197301 Problem Type 2 diabetes mellitus with hyperglycemia E11.65 Active 39352157 Problem Other chronic pain G89.29 Active 8 9800119 Problem Essential hypertension I10 Active 71304109 Problem Acute bilateral low back pain with right-sided sciatica M54.41 Active 140393606 Problem Bipolar disorder, in partial remission, most rec ent episode manic F31.73 Active 95318146 Problem Seasonal allergic rhinitis due to pollen J30.1 Active 11764377 Problem Hyperlipidemia, unspecified E78.5 Ac tive 94030857 Problem Eye exam normal Z01.00 Active 2438 68664 Problem Extreme poverty Z59.5 Active 1140 3006 Problem Lumbago with sciatica, left side M54.42 Active 997083214 Problem Hypertriglyceridemia E78.1 Active 536162033 Problem Insulin long-term use Z79.4 Active 801868713 Problem Rhinosinusitis J32.9 Active 95139 000 ALLERGIES No Information ENCOUNTERS Encounter Location Date Diagnosis [facility] [id number] [place] [address] Jun, [facility] [id number] [place] [address] May, [facility] [id number] [place] [address] May, [facility] [id number] [place] [address] May, [facility] [id number] [place] [address] Apr, Bipolar 1 disorder F31.9 ; Borderline in tellectual functioning R41.83 and Extreme poverty Z59.5 [facility] [address] [facility] [id number] [address] [place] [address] Apr, Seasonal allergic rhinitis d ue to pollen J30.1 [facility] [id number] [place] [address] Apr, Essential hypertension I10 and Diabetes E11.9 [facility] [id number] [place] [address] Apr, [place] [address] [address] Mar, Bipolar 1 disorder F31.9 ; Borderline in tellectual functioning R41.83 and Extreme poverty Z59.5 [place] [address] [address] Mar, Exercise counseling Z71.82 [facility] [id number] [place] [address] Mar, [place] [address] [address] Mar, Bipolar disorder, in partial remission, most recent episode manic F31.73 and 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 [place] [address] [address] Mar, [place] [address] [place] [address] Mar, Exercise counseling Z71.82 [place] [address] [address] Feb, Bipolar 1 disorder F31.9 ; Borderline in tellectual functioning R41.83 and Extreme poverty Z59.5 [facility] [address] [address] Feb, [facility] [address] [address] Feb, Type 2 diabetes mellitus with complicati on E11.8 [facility] [address] [facility] [id number] [address] [place] [address] Feb, Acute low back pain without sciatica, unspecified back pain laterality M54.5 [place] [address] [address] Feb, Bipolar 1 disorder F31.9 ; Borderline in tellectual functioning R41.83 and Extreme poverty Z59.5 [place] [address] [address] Jan, Bipolar 1 disorder F31.9 ; Borderline in tellectual functioning R41.83 and Extreme poverty Z59.5 [place] [address] [address] Jan, [place] [address] [address] Jan, Type 2 diabetes mellitus with complicati on E11.8 [place] [address] [address] Jan, Type 2 diabetes mellitus with complicati on E11.8 ; Dysuria R30.0 and Diarrhea, unspecified type R19.7 [place] [address] [address] 07 Jan, 2019 Bipolar 1 disorder F31.9 ; Borderline in tellectual functioning R41.83 and Extreme poverty Z59.5 [facility] [id number] [place] [address] Dec, [facility] [address] [address] Dec, [facility] [address] [address] Dec, [facility] [address] [address] Dec, [facility] [address] [address] Dec, Rhinosinusitis J32.9 [facility] [address] [address] Dec, [facility] [address] [address] Dec, Bipolar 1 disorder F31.9 ; Borderline in tellectual functioning R41.83 and Extreme poverty Z59.5 [place] [address] [address] Dec, Type 2 diabetes mellitus with complicati on E11.8 and Type 2 diabetes mellitus with hyperglycemia E11.65 [place] [address] [address] Dec, [facility] [address] [address] Dec, Type 2 diabetes mellitus with complicati on E11.8 ; Insulin long-term use Z79.4 ; Hyperglycemia R73.9 and Yeast infection B37.9 [facility] [address] [address] Dec, Encounter for immunization Z23 [place] [address] [address] Nov, [facility] [address] [address] Nov, Bipolar 1 disorder F31.9 ; Borderline in tellectual functioning R41.83 and Extreme poverty Z59.5 [facility] [id number] [place] [address] Nov, [facility] [address] [address] Nov, [facility] [address] [address] Nov, Borderline intellectual functioning R41. 83 and Bipolar disorder, in partial remission, most recent episode manic F31.73 [facility] [id number] [place] [address] Nov, Epigastric abdominal pain R1 0.13 [facility] [address] [address] Nov, Bipolar 1 disorder F31.9 ; Borderline in tellectual functioning R41.83 and Extreme poverty Z59.5 [facility] [id number] [place] [address] Oct, Dysuria R30.0 and Acute cyst itis without hematuria N30.00 [facility] [id number] [place] [address] Oct, [facility] [address] [place] [address] [address] Oct, [facility] [address] [address] Oct, Bipolar 1 disorder F31.9 ; Borderline in tellectual functioning R41.83 and Extreme poverty Z59.5 [facility] [address] [place] [address] [address] Oct, [facility] [address] [address] Oct, [facility] [address] [address] Oct, Bipolar disorder, in partial remission, most recent episode manic F31.73 and 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 [facility] [id number] [place] [address] Oct, Bipolar 1 disorder F31.9 ; Borderline in tellectual functioning R41.83 and Extreme poverty Z59.5 [facility] [id number] [place] [address] Oct, Diarrhea, unspecified type R19.7 [facility] [address] [facility] [place] [id number] Sep, Dental examination Z01.20 and Dental car ies K02.9 [facility] [address] [facility] [id number] [address] [place] [address] Sep, Mouth pain K13.79 [facility] [id number] [place] [address] Sep, [facility] [address] [address] Sep, Bipolar 1 disorder F31.9 ; Borderline in tellectual functioning R41.83 and Extreme poverty Z59.5 [facility] [address] [place] [address] Sep, [facility] [address] [address] Sep, [facility] [address] [place] [address] Sep, Diabetes E11.9 ; Hyperglycemia R73.9 ; L eliseo term current use of insulin Z79.4 and Diarrhea, unspecified type R19.7 [facility] [address] [address] Sep, [facility] [address] [address] Sep, Bipolar 1 disorder F31.9 ; Borderline in tellectual functioning R41.83 and Extreme poverty Z59.5 [facility] [address] [address] [address] Sep, [facility] [address] [address] Sep, [place] [address] [address] Aug, Bipolar 1 disorder F31.9 ; Borderline in tellectual functioning R41.83 and Extreme poverty Z59.5 [address] [address] [address] Aug, Exercise counseling Z71.82 [place] [address] [address] Aug, Bipolar 1 disorder F31.9 ; Borderline in tellectual functioning R41.83 and Extreme poverty Z59.5 [address] [address] [address] Aug, Borderline intellectual functioning R41. 83 and Bipolar disorder, in partial remission, most recent episode manic F31.73 [place] [address] [address] Aug, Low back pain M54.5 [address] [address] [address] Aug, Borderline intellectual functioning R41. 83 and Bipolar disorder, in partial remission, most recent episode manic F31.73 [address] [address] [address] July, Acute superficial gastritis without hemo rrhage K29.00 ; Low back pain M54.5 and Other chronic pain G89.29 [facility] [address] [address] July, [place] [address] [address] July, [facility] [id number] [place] [address] Jun, [facility] [address] [facility] [id number] [address] [place] [address] Jun, Bilateral lower extremity ed epi R60.0 [address] [address] [address] Jun, Borderline intellectual functioning R41. 83 and Bipolar disorder, in partial remission, most recent episode manic F31.73 [place] [address] [address] Jun, [place] [address] [address] May, Bronchitis J40 [place] [address] [address] 14 May, 2018 Screening for breast cancer Z12.31 and E ncounter for immunization Z23 [place] [address] [address] 06 May, 2018 Bipolar 1 disorder F31.9 ; Borderline in tellectual functioning R41.83 and Extreme poverty Z59.5 [address] [address] [address] Apr, [place] [address] [address] 07 Apr, 2018 Bipolar 1 disorder F31.9 ; Borderline in tellectual functioning R41.83 and Extreme poverty Z59.5 [place] [address] [address] 05 Apr, 2018 Irritable bowel syndrome with diarrhea K 58.0 and Dental abscess K04.7 [address] [address] [address] Mar, [place] [address] [address] Mar, [place] [address] [address] Mar, Bipolar 1 disorder F31.9 ; Borderline in tellectual functioning R41.83 and Extreme poverty Z59.5 [address] [address] [address] Mar, Hypertriglyceridemia E78.1 [address] [address] [address] Mar, Borderline intellectual functioning R41. 83 and Bipolar disorder, in partial remission, most recent episode manic F31.73 [address] [address] [address] Mar, Bipolar 1 disorder F31.9 ; Borderline in tellectual functioning R41.83 and Extreme poverty Z59.5 [address] [address] [address] Feb, Generalized abdominal pain R10.84 and Di arrhea, unspecified type R19.7 [address] [address] [address] Feb, [address] [address] Feb, Myalgia M79.10 and Nausea R11.[address] [address] Feb, Bipolar 1 disorder F31.9 ; Borderline in tellectual functioning R41.83 and Extreme poverty Z59.5 [address] [address] [address] Feb, [place] [id number] Feb, Diabetes E11.9 ; Hyperglycemia R73.9 and Diarrhea, unspecified R19.[address] [address] Feb, Diarrhea, unspecified type R19.7 ; Abdom inal pain R10.9 and Encounter for immunization Z23 [address] [address] Jan, Bipolar 1 disorder F31.9 ; Borderline in tellectual functioning R41.83 and Extreme poverty Z59.5 [address] [address] [address] Dec, Bipolar 1 disorder F31.9 ; Borderline in tellectual functioning R41.83 and Extreme poverty Z59.5 [address] [address] [address] Nov, [place] [address] [address] Nov, Hypertriglyceridemia E78.1 [address] [address] [address] Nov, Bipolar 1 disorder F31.9 ; Borderline in tellectual functioning R41.83 and Extreme poverty Z59.5 [address] [address] [address] Nov, Type 2 diabetes mellitus with complicati on E11.8 [address] [address] [address] Nov, Borderline intellectual functioning R41. 83 and Bipolar disorder, in partial remission, most recent episode manic F31.73 [address] [address] [address] Nov, Type 2 diabetes mellitus with complicati on E11.8 [address] [address] [address] Nov, Bipolar 1 disorder F31.9 ; Borderline in tellectual functioning R41.83 and Extreme poverty Z59.5 [address] [address] [address] 10 Nov, 2017 Type 2 diabetes mellitus with complicati on E11.8 ; Pain of left upper arm M79.622 ; Pain in right upper arm M79.621 ; Hyperglycemia R73.9 ; Lumbago with sciatica, left side M54.42 and Other chronic pain G89.29 [address] [address] [address] Oct, Bipolar 1 disorder F31.9 ; Borderline in tellectual functioning R41.83 and Extreme poverty Z59.5 [address] [address] [address] Oct, Type 2 diabetes mellitus with hyperglyce didi E11.65 ; [facility] current use of insulin Z79.4 and Other acute gastritis without hemorrhage K29.00 [address] [address] [address] Oct, Bipolar 1 disorder F31.9 ; Borderline in tellectual functioning R41.83 and Extreme poverty Z59.5 [address] [address] [address] Sep, Diarrhea, unspecified R19.7 and Vomiting , unspecified R11.10 [address] [address] [address] Aug, Type 2 diabetes mellitus with complicati on E11.8 [address] [address] [address] Aug, [place] [address] [address] Aug, Bipolar 1 disorder F31.9 ; Borderline in tellectual functioning R41.83 and Extreme poverty Z59.5 [address] [address] [address] Aug, Borderline intellectual functioning R41. 83 and Bipolar disorder, in partial remission, most recent episode manic F31.73 [address] [address] [address] Aug, Bipolar 1 disorder F31.9 [address] [address] [address] Aug, [address] [address] [address] Aug, [place] [address] [address] Aug, Bipolar 1 disorder F31.9 ; Borderline in tellectual functioning R41.83 and Extreme poverty Z59.5 [address] [address] [address] July, Type 2 diabetes mellitus with complicati on E11.8 [place] [id number] July, Bipolar 1 disorder F31.9 ; Borderline in tellectual functioning R41.83 and Extreme poverty Z59.5 [address] [address] [address] Jun, Bipolar 1 disorder F31.9 ; Borderline in tellectual functioning R41.83 and Extreme poverty Z59.5 [address] [address] [address] Jun, Bipolar 1 disorder F31.9 ; Borderline in tellectual functioning R41.83 and Extreme poverty Z59.5 [address] [address] [address] Jun, Bipolar 1 disorder F31.9 ; Borderline in tellectual functioning R41.83 and Extreme poverty Z59.5 [address] [address] [address] May, Urinary tract infection without hematuri a, site unspecified N39.0 [address] [address] [address] May, Bipolar 1 disorder F31.9 ; Borderline in tellectual functioning R41.83 and Extreme poverty Z59.5 [address] [address] [address] Apr, Diabetes E11.9 and Breast cancer screeni ng Z12.31 [address] [address] [address] Apr, Bipolar 1 disorder F31.9 and 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 [address] [address] [address] Mar, Bipolar 1 disorder F31.9 ; Borderline in tellectual functioning R41.83 and Extreme poverty Z59.5 [address] [address] [address] Mar, New daily persistent headache G44.52 ; L eg pain 729.5 and History of carpal tunnel release Z98.890 [address] [address] [address] Mar, Hyperlipidemia, unspecified E78.5 [address] [address] [address] Mar, Bipolar 1 disorder F31.9 ; Borderline in tellectual functioning R41.83 and Extreme poverty Z59.5 [address] [address] [address] Feb, Bipolar 1 disorder F31.9 ; Borderline in tellectual functioning R41.83 and Extreme poverty Z59.5 [address] [address] [address] Feb, Diabetes E11.9 [place] [address] [address] Feb, Viral syndrome B34.[address] [address] Jan, Other viral agents as the cause of disea ses classified elsewhere B97.89 and Acute upper respiratory infection, unspecified J06.9 [place] [address] [address] Jan, Bipolar 1 disorder F31.9 and Borderline intellectual functioning R41.[address] [address] Jan, Bipolar 1 disorder F31.9 ; Borderline in tellectual functioning R41.83 and Extreme poverty Z59.5 [address] [address] [address] Dec, Diabetes E11.9 [place] [address] [address] Dec, Diabetes E11.9 and Encounter for immuniz ation Z23 [place] [address] [address] Dec, Bipolar 1 disorder F31.9 ; Borderline in tellectual functioning R41.83 and Extreme poverty Z59.5 [address] [address] [address] Dec, Back pain M54.9 [place] [address] [address] Nov, [place] [address] [address] Nov, Bipolar 1 disorder F31.9 ; Borderline in tellectual functioning R41.83 and Extreme poverty Z59.5 [place] [address] [address] Nov, Bipolar 1 disorder F31.9 ; Borderline in tellectual functioning R41.83 and Extreme poverty Z59.5 [place] [address] [address] Oct, Borderline intellectual functioning R41. 83 and Bipolar 1 disorder F31.9 [place] [address] [address] Oct, Bipolar 1 disorder F31.9 ; Borderline in tellectual functioning R41.83 and Extreme poverty Z59.5 [place] [address] [address] Oct, Back pain M54.9 [place] [address] [address] Oct, Borderline intellectual functioning R41. 83 and Type 2 diabetes mellitus with complication E11.8 [place] [address] [address] Sep, Bipolar 1 disorder F31.9 ; Borderline in tellectual functioning R41.83 and Extreme poverty Z59.5 [place] [address] [address] Sep, Borderline intellectual functioning R41. 83 and Bipolar 1 disorder F31.9 [place] [address] [address] Sep, Bipolar 1 disorder F31.9 ; Borderline in tellectual functioning R41.83 and Extreme poverty Z59.5 [place] [address] [address] Aug, Diabetes E11.9 ; Hyperlipidemia, unspeci fied E78.5 and Lumbar radiculopathy M54.16 [place] [address] [address] Aug, Bipolar 1 disorder F31.9 ; Borderline in tellectual functioning R41.83 and Extreme poverty Z59.5 [place] [address] [address] Aug, [place] [address] [address] Aug, [place] [address] [address] Aug, [place] [address] [address] July, [place] [address] [address] July, Acute bilateral low back pain with right -sided sciatica M54.41 [place] [address] [address] July, Bipolar 1 disorder F31.9 ; Borderline in tellectual functioning R41.83 and Extreme poverty Z59.5 [place] [address] [address] July, Back pain M54.9 and Diabetes E11.9 [place] [address] [address] Jun, Bipolar 1 disorder F31.9 ; Borderline in tellectual functioning R41.83 and Extreme poverty Z59.5 [place] [id number] [place] [address] Jun, Bipolar 1 disorder F31.9 ; Borderline in tellectual functioning R41.83 and Extreme poverty Z59.5 [place] [address] [address] May, Visit for pelvic exam Z01.419 ; Acute va ginitis N76.0 and Diabetes E11.9 [place] [address] [address] May, Bipolar 1 disorder F31.9 ; Borderline in tellectual functioning R41.83 and Extreme poverty Z59.5 [place] [address] [address] May, [place] [address] [address] May, [place] [address] [address] May, Bipolar 1 disorder F31.9 ; Borderline in tellectual functioning R41.83 and Extreme poverty Z59.5 [place] [address] [address] May, Hyperlipidemia, unspecified E78.5 [place] [address] [address] Apr, Breast cancer screening Z12.39 [place] [address] [address] Mar, [place] [address] [address] Mar, Bipolar disorder, current episode mixed, unspecified F31.60 [place] [address] [address] Mar, Bipolar 1 disorder F31.9 ; Borderline in tellectual functioning R41.83 and Extreme poverty Z59.5 [place] [address] [address] 30 Feb, 2016 Acute nasopharyngitis J00 [place] [address] [address] 27 Feb, 2016 Dental examination Z01.20 [place] [address] [address] 21 Feb, 2016 Dental cavities K02.9 and Chronic period ontitis, unspecified K05.30 [place] [address] [address] 13 Feb, 2016 Low back pain M54.5 and Extreme poverty Z59.5 [place] [address] [address] 08 Feb, [address] [address] 05 Feb, 2016 Routine gynecological examination V72.31 ; Breast cancer screening Z12.39 and Herpes simplex type [address] infection [address]00[address] [address] Feb, Diabetes E11.[address] [address] Feb, Encounter for dental examination and leti aning without abnormal findings Z01.20 [place] [address] [address] Jan, Hyperlipidemia, unspecified E78.5 [place] [address] [address] Jan, Bipolar 1 disorder F31.9 ; Borderline in tellectual functioning R41.83 and Extreme poverty Z59.5 [place] [address] [address] Jan, Diabetes E11.9 [place] [address] [address] Jan, Diabetes E11.9 [place] [address] [address] 14 Dec, 2015 Bipolar 1 disorder F31.9 ; Borderline in tellectual functioning R41.83 and Extreme poverty Z59.5 [place] [address] [id number] 13 Dec, 2015 Bipolar disorder, current episode mixed, unspecified F31.60 and 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 [place] [address] [address] 16 Nov, 2015 Bipolar 1 disorder F31.9 ; Borderline in tellectual functioning R41.83 ; Extreme poverty Z59.5 and Non compliance with medical treatment Z91.19 [place] [address] [address] Oct, [place] [address] [address] [address] Oct, Dental caries K02.9 [place] [address] [address] Oct, Low back pain M54.5 and Other chronic pa in G89.29 [place] [address] [address] Oct, Bipolar 1 disorder F31.9 ; Borderline in tellectual functioning R41.83 ; Extreme poverty Z59.5 and Non compliance with medical treatment Z91.19 [place] [address] [address] Oct, [place] [address] [address] Oct, [place] [address] [address] Oct, Dental examination Z01.20 [place] [address] [address] Oct, Bipolar 1 disorder F31.9 ; Borderline in tellectual functioning R41.83 ; Extreme poverty Z59.5 and Non compliance with medical treatment Z91.19 [place] [address] [place] [id number] [place] [address] Oct, [place] [address] [address] Sep, Type 2 diabetes mellitus with complicati on E11.8 [place] [address] [place] [id number] [place] [address] Sep, Bipolar disorder, current episode mixed, unspecified F31.60 [place] [address] [address] Sep, Bipolar disorder, current episode mixed, unspecified F31.60 [place] [id number] [place] [address] Sep, Bipolar disorder, in partial remission, most recent episode manic F31.73 ; 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 ; Extreme poverty Z59.5 and Non compliance with medical treatment Z91.19 [place] [id number] [place] [address] Aug, Bipolar disorder, in partial remission, most recent episode manic F31.73 ; 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 ; Extreme poverty Z59.5 and Non compliance with medical treatment Z91.19 [place] [id number] [place] [address] Aug, Bipolar disorder, in partial remission, most recent episode manic F31.73 ; 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 ; Extreme poverty Z59.5 and Non compliance with medical treatment Z91.19 [place] [id number] [place] [address] Aug, [place] [address] [address] July, Bipolar disorder, in partial remission, most recent episode manic F31.73 ; 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 ; Extreme poverty Z59.5 and Non compliance with medical treatment Z91.19 [place] [id number] [place] [address] July, Bipolar disorder, current episode mixed, unspecified F31.60 [place] [address] [address] July, Bipolar disorder, in partial remission, most recent episode manic F31.73 ; 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 ; Extreme poverty Z59.5 and Non compliance with medical treatment Z91.19 [place] [address] [address] July, [facility] current use of opiate analgesi c Z79.891 and Chronic pain G89.29 [place] [address] [address] Jun, [facility] current use of opiate analgesi c Z79.891 and Bipolar 1 disorder F31.9 [place] [address] [address] Jun, [place] [address] [address] Jun, [place] [address] [address] Jun, [place] [address] [address] Jun, Bipolar disorder, in partial remission, most recent episode manic F31.73 ; 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 and Non compliance with medical treatment Z91.19 [place] [address] [address] May, Bipolar disorder, in partial remission, most recent episode manic F31.73 ; 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 and Non compliance with medical treatment Z91.19 [place] [address] [address] May, Bipolar disorder, in partial remission, most recent episode manic F31.73 [place] [address] [address] May, Diabetes E11.9 and Chronic pain G89.29 [place] [address] [address] 14 May, 2015 [place] [address] [address] May, Bipolar disorder, in partial remission, most recent episode manic F31.73 ; Non compliance with medical treatment Z91.19 and 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 [place] [address] [address] 08 May, 2015 Type 2 diabetes mellitus with complicati on E11.8 and Back pain M54.[address] [address] May, Bipolar disorder, in partial remission, most recent episode manic F31.73 and 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 [place] [address] [address] Apr, [place] [address] [address] Apr, [place] [address] [address] Apr, [address] [address] 09 Apr, 2015 Diabetes E11.9 ; Irritable bowel syndrom e with diarrhea K58.0 and Lumbar radiculopathy M54.16 [place] [address] [address] Apr, Breast screening Z12.[address] [address] Apr, Bipolar disorder, in partial remission, most recent episode manic F31.73 ; Non compliance with medical treatment Z91.19 and 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 [place] [address] [address] Mar, Edema, unspecified type R60.9 and Type 2 diabetes mellitus with complication E11.8 [place] [address] [address] Mar, Bipolar disorder, in partial remission, most recent episode manic F31.73 ; Non compliance with medical treatment Z91.19 ; 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 and Extreme poverty Z59.5 [place] [address] [address] 14 Mar, 2015 Bipolar disorder, current episode mixed, unspecified F31.60 ; 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 ; Extreme poverty Z59.5 and Generalized anxiety disorder F41.1 [place] [address] [address] 12 Mar, 2015 Bipolar disorder, in partial remission, most recent episode manic F31.73 ; 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 and Extreme poverty Z59.5 [place] [address] [address] Feb, Bipolar disorder, in partial remission, most recent episode manic F31.73 ; 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 and Extreme poverty Z59.5 [place] [address] [address] Feb, Bipolar disorder, in partial remission, most recent episode manic F31.73 ; 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 and Extreme poverty Z59.5 [place] [address] [address] Feb, [place] [address] [address] Jan, Type 2 diabetes mellitus with complicati on E11.8 and Petechiae R23.3 [place] [address] [address] Jan, Type 2 diabetes mellitus with complicati on E11.8 ; Edema, unspecified R60.9 ; Petechiae R23.3 and Diabetes E11.9 [place] [address] [address] Jan, Bipolar disorder, in partial remission, most recent episode manic F31.73 ; 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 and Extreme poverty Z59.5 [place] [address] [address] Jan, Bipolar disorder, in partial remission, most recent episode manic F31.73 ; 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 and Extreme poverty Z59.5 [place] [address] [address] Dec, Bipolar disorder, in partial remission, most recent episode manic F31.73 [place] [address] [address] Dec, Edema, due to unspecified malnutrition t ype, unspecified edema R60.9 and Essential hypertension I10 [place] [address] [address] Dec, Bipolar disorder, in partial remission, most recent episode manic F31.73 [place] [address] [address] Nov, Bipolar I disorder, most recent episode (or current) mixed, unspecified 296.60 [place] [address] [address] Nov, Stress incontinence, female 625.6 ; Back pain 724.5 and Leg pain 729.5 [place] [address] [address] Nov, Generalized anxiety disorder 300.02 and Bipolar II disorder 296.89 [place] [address] [address] Nov, Bipolar I disorder, most recent episode (or current) mixed, unspecified 296.60 [place] [address] [address] Oct, [place] [address] [address] Oct, [place] [address] [address] Oct, [facility] [address] [address] Oct, Bipolar I disorder, most recent episode (or current) mixed, unspecified 296.60 [facility] [address] [address] Sep, Diabetes 250.00 [facility] [address] [address] Sep, Bipolar I disorder, most recent episode (or current) mixed, unspecified 296.60 [facility] [address] [address] Sep, [facility] [address] [address] Sep, [facility] [address] [address] Sep, Bipolar I disorder, most recent episode (or current) mixed, unspecified 296.60 [facility] [address] [address] Sep, Bipolar I disorder, most recent episode (or current) mixed, unspecified 296.60 [facility] [address] [address] Sep, [facility] [address] [address] Sep, Anxiety 300.00 ; Diabetes 250.00 and Hyp erlipidemia 272.4 [facility] [address] [address] Aug, [facility] [address] [address] Aug, [facility] [address] [address] Aug, [facility] [address] [address] Aug, Bipolar I disorder, most recent episode (or current) mixed, unspecified 296.60 [facility] [id number] [place] [address] Aug, Generalized anxiety disorder 300.02 and Bipolar II disorder 296.89 [facility] [address] [address] July, Bipolar I disorder, most recent episode (or current) mixed, unspecified 296.60 [facility] [address] [address] July, Cough 786.2 [facility] [address] [address] July, Bipolar I disorder, most recent episode (or current) mixed, unspecified 296.60 [facility] [address] [address] Jun, Diabetes 250.00 [facility] [address] [address] 14 Jun, 2014 [facility] [address] [address] Jun, [facility] [address] [address] May, [facility] [address] [address] May, [facility] [address] [address] May, [facility] [address] [address] May, [facility] [address] [address] May, [facility] [address] [address] May, [facility] [address] [address] Apr, [facility] [address] [address] Apr, [facility] [address] [facility] [id number] [place] [address] Apr, [facility] [address] [facility] [id number] [place] [address] Apr, [facility] [address] [id number] [place] [address] Apr, [facility] [address] [id number] [place] [address] Apr, [facility] [address] [id number] [place] [address] Apr, [facility] [address] [id number] [place] [address] Apr, [facility] [address] [id number] [place] [address] Mar, [facility] [address] [id number] [place] [address] Mar, [facility] [address] [id number] [place] [address] Mar, [facility] [address] [id number] [place] [address] Mar, [facility] [address] [id number] [place] [address] Mar, [facility] [address] [id number] [place] [address] Mar, [facility] [address] [id number] [place] [address] Mar, [facility] [address] [id number] [place] [address] Mar, [facility] [address] [id number] [place] [address] Feb, [facility] [address] [id number] [place] [address] Feb, [facility] [address] [id number] [place] [address] Feb, [facility] [address] [id number] [place] [address] Feb, [facility] [address] [id number] [place] [address] Feb, [facility] [address] [id number] [place] [address] Feb, [facility] [address] [id number] [place] [address] Feb, [facility] [address] [id number] [place] [address] Feb, [facility] [address] [id number] [place] [address] Feb, [facility] [address] [id number] [place] [address] Feb, [facility] [address] [id number] [place] [address] Jan, [facility] [address] [id number] [place] [address] Jan, [facility] [address] [id number] [place] [address] Jan, [facility] [address] [id number] [place] [address] Jan, [facility] [address] [id number] [place] [address] Jan, [facility] [address] [id number] [place] [address] Jan, [facility] [address] [id number] [place] [address] Jan, [facility] [address] [id number] [place] [address] Jan, [facility] [address] [id number] [place] [address] Jan, [facility] [address] [id number] [place] [address] Jan, [facility] [address] [id number] [place] [address] Jan, [facility] [address] [id number] [place] [address] Jan, [facility] [address] [id number] [place] [address] Jan, [facility] [address] [id number] [place] [address] Jan, [facility] [address] [id number] [place] [address] Jan, [facility] [address] [id number] [place] [address] Dec, [facility] [address] [id number] [place] [address] Dec, [facility] [address] [id number] [place] [address] Dec, [facility] [address] [id number] [place] [address] Dec, [facility] [address] [id number] [place] [address] Dec, [facility] [address] [id number] [place] [address] Dec, [facility] [address] [id number] [place] [address] Dec, [facility] [address] [id number] [place] [address] Dec, [facility] [address] [id number] [place] [address] Nov, [facility] [address] [id number] [place] [address] Nov, [facility] [address] [id number] [facility] [address] 10 Sep, 2013 [facility] [address] [id number] [place] [address] 10 Nov, 2013 [facility] [address] [facility] [id number] [place] [address] 08 Sep, 2013 [facility] [address] [id number] [place] [address] 08 Sep, 2013 [facility] [address] [facility] [id number] [place] [address] 08 Sep, 2013 [facility] [address] [id number] [place] [address] 08 Sep, 2013 [facility] [address] [id number] [place] [address] 08 Sep, 2013 [facility] [address] [id number] [place] [address] 08 Sep, 2013 [facility] [address] [id number] [place] [address] 04 Sep, 2013 [facility] [address] [id number] [place] [address] 04 Sep, 2013 [facility] [address] [id number] [place] [address] 03 Nov, 2013 [facility] [address] [id number] [place] [address] 02 Nov, 2013 [facility] [address] [id number] [place] [address] 02 Nov, 2013 [facility] [address] [id number] [place] [address] Oct, [facility] [address] [id number] [place] [address] Oct, [facility] [address] [id number] [place] [address] Oct, 2013 [facility] [address] [id number] [place] [address] Oct, [facility] [address] [id number] [place] [address] Oct, [facility] [address] [facility] [id number] [place] [address] Oct, [facility] [address] [facility] [id number] [place] [address] Oct, [facility] [address] [facility] [id number] [place] [address] Oct, [facility] [address] [facility] [id number] [place] [address] Oct, [facility] [address] [facility] [id number] [place] [address] Oct, [facility] [address] [id number] [place] [address] Oct, [facility] [address] [id number] [place] [address] Oct, [facility] [address] [facility] [id number] [place] [address] Oct, [facility] [address] [id number] [place] [address] Oct, [facility] [address] [id number] [place] [address] Sep, [facility] [address] [id number] [place] [address] Sep, [facility] [address] [facility] [id number] [place] [address] Sep, [facility] [address] [facility] [id number] [place] [address] Sep, [facility] [address] [facility] [id number] [place] [address] Sep, [facility] [address] [id number] [place] [address] Sep, [facility] [address] [id number] [place] [address] Sep, [facility] [address] [facility] [id number] [facility] [place] [address] Sep, [facility] [address] [id number] [facility] [place] [address] Aug, [facility] [address] [id number] [facility] [place] [address] Aug, [facility] [address] [id number] [facility] [place] [address] Aug, [facility] [address] [facility] [id number] [facility] [place] [address] Aug, [facility] [address] [id number] [place] [address] Aug, [facility] [address] [id number] [place] [address] Aug, [facility] [address] [id number] [place] [address] Aug, [facility] [address] [id number] [place] [address] Aug, [facility] [address] [id number] [place] [address] July, [facility] [address] [id number] [place] [address] July, [facility] [address] [id number] [place] [address] July, [facility] [address] [id number] [place] [address] July, [facility] [address] [id number] [place] [address] July, [facility] [address] [id number] [place] [address] July, [facility] [address] [id number] [place] [address] July, [facility] [address] [id number] [place] [address] July, [facility] [address] [id number] [place] [address] Jun, [facility] [address] [id number] [place] [address] Jun, [facility] [address] [id number] [place] [address] Jun, [facility] [address] [id number] [place] [address] Jun, [facility] [address] [id number] [place] [address] Jun, [facility] [address] [id number] [place] [address] Jun, [facility] [address] [id number] [place] [address] Jun, [facility] [address] [id number] [place] [address] Jun, [facility] [address] [id number] [place] [address] Jun, [facility] [address] [id number] [place] [address] Jun, [facility] [address] [id number] [place] [address] Jun, [facility] [address] [id number] [place] [address] Jun, [facility] [address] [facility] [id number] [place] [address] May, [facility] [address] [id number] [place] [address] May, [facility] [address] [id number] [place] [address] May, [facility] [address] [id number] [place] [address] May, [facility] [address] [facility] [id number] [place] [address] 13 May, 2013 [facility] [address] [facility] [id number] [place] [address] 13 May, 2013 [facility] [address] [facility] [id number] [place] [address] 12 May, 2013 [facility] [address] [id number] [place] [address] May, [facility] [address] [facility] [id number] [place] [address] May, [facility] [address] [id number] [place] [address] May, [facility] [address] [id number] [place] [address] May, [facility] [address] [id number] [place] [address] May, [facility] [address] [id number] [place] [address] May, [facility] [address] [id number] [place] [address] May, [facility] [address] [id number] [place] [address] Apr, [facility] [address] [id number] [place] [address] Apr, [facility] [address] [id number] [place] [address] Apr, [facility] [address] [facility] [id number] [place] [address] Apr, [facility] [address] [id number] [place] [address] Apr, [facility] [address] [id number] [place] [address] Apr, [facility] [address] [id number] [place] [address] Mar, [facility] [address] [id number] [place] [address] Mar, [facility] [address] [id number] [place] [address] Mar, [facility] [place] [facility] [address] [id number] [place] [address] Mar, [facility] [place] [facility] [address] [id number] [place] [address] Mar, [facility] [place] [facility] [address] [id number] [place] [address] Mar, [facility] [place] [facility] [address] [id number] [place] [address] Mar, [facility] [place] [facility] [address] [id number] [place] [address] Mar, [facility] [place] [facility] [address] [id number] [place] [address] Mar, [facility] [place] [facility] [address] [id number] [place] [address] Mar, [facility] [place] [facility] [address] [id number] [place] [address] Mar, [facility] [place] [facility] [address] [id number] [place] [address] Mar, [facility] [place] [facility] [address] [id number] [place] [address] Mar, [facility] [place] [facility] [address] [id number] [place] [address] Mar, [facility] [place] [facility] [address] [id number] [place] [address] Feb, [facility] [place] [facility] [address] [id number] [place] [address] Feb, [facility] [place] [facility] [address] [id number] [place] [address] Feb, [facility] [place] [facility] [address] [id number] [place] [address] 30 Feb, 2012 [facility] [place] [facility] [address] [id number] [place] [address] Feb, 2012 [facility] [place] [facility] [address] [id number] [place] [address] Feb, 2012 [facility] [place] [facility] [address] [id number] [place] [address] Feb, 2012 [facility] [place] [facility] [address] [id number] [place] [address] Feb, 2012 [facility] [place] [facility] [address] [id number] [place] [address] Feb, 2012 [facility] [place] [facility] [address] [id number] [place] [address] Feb, 2012 [facility] [place] [facility] [id number] [place] [address] Feb, 2012 [facility] [place] [facility] [address] [id number] [place] [address] Feb, [facility] [place] [facility] [address] [id number] [place] [address] 05 Feb, 2013 [facility] [place] [facility] [address] [id number] [place] [address] 05 Feb, 2013 [facility] [place] [facility] [address] [id number] [place] [address] Feb, 2012 [facility] [place] [facility] [address] [id number] [place] [address] 05 Feb, 2012 [facility] [place] [facility] [address] [id number] [place] [address] 24 Dec, 2012 [facility] [place] [facility] [id number] [place] [address] 24 Dec, 2012 [facility] [place] [facility] [address] [id number] [place] [address] 16 Dec, 2012 [facility] [place] [facility] [address] [id number] [place] [address] 16 Dec, 2012 [facility] [place] [facility] [address] [facility] [id number] [place] [address] 16 Dec, 2012 [facility] [place] [facility] [address] [facility] [id number] [place] [address] 16 Dec, 2012 [facility] [place] [facility] [address] [id number] [place] [address] 14 Dec, 2012 [facility] [place] [facility] [address] [facility] [id number] [place] [address] 14 Dec, 2012 [facility] [place] [facility] [address] [facility] [id number] [place] [address] 10 Dec, 2012 [facility] [place] [facility] [address] [id number] [place] [address] 10 Dec, 2012 [facility] [place] [facility] [address] [id number] [place] [address] 10 Dec, 2012 [facility] [place] [facility] [address] [id number] [place] [address] 10 Dec, 2012 [facility] [place] [facility] [address] [facility] [id number] [place] [address] 03 Dec, 2012 [facility] [place] [facility] [address] [id number] [place] [address] 25 Sep, 2012 [facility] [place] [facility] [address] [id number] [place] [address] 20 Sep, 2012 [facility] [place] [facility] [address] [id number] [place] [address] 18 Sep, 2012 [facility] [place] [facility] [address] [facility] [id number] [place] [address] 16 Sep, 2012 [facility] [place] [facility] [address] [facility] [id number] [place] [address] 12 Sep, 2012 [facility] [place] [facility] [address] [facility] [id number] [place] [address] 11 Sep, 2012 [facility] [place] [facility] [address] [id number] [place] [address] 05 Sep, 2012 [facility] [place] [facility] [address] [facility] [id number] [place] [address] 15 Oct, 2012 [facility] [place] [facility] [address] [id number] [place] [address] Oct, [facility] [place] [facility] [address] [facility] [id number] [place] [address] Sep, [facility] [place] [facility] [address] [id number] [place] [address] Sep, [facility] [place] [facility] [address] [id number] [place] [address] Sep, [facility] [place] [facility] [address] [id number] [place] [address] Sep, [facility] [place] [facility] [address] [id number] [place] [address] 15 Sep, 2012 [facility] [place] [facility] [address] [id number] [place] [address] Sep, [facility] [place] [facility] [address] [id number] [place] [address] Sep, [facility] [place] [facility] [address] [id number] [place] [address] Aug, [facility] [place] [facility] [address] [id number] [place] [address] Aug, [facility] [place] [facility] [address] [id number] [place] [address] 16 Aug, 2012 [facility] [place] [facility] [address] [id number] [place] [address] 13 Aug, 2012 [facility] [place] [facility] [address] [id number] [place] [address] Aug, [facility] [place] [facility] [address] [id number] [place] [address] 10 Aug, 2012 [facility] [place] [facility] [address] [id number] [place] [address] 04 Aug, 2012 [facility] [place] [facility] [address] [id number] [place] [address] 04 Aug, 2012 [facility] [place] [facility] [address] [id number] [place] [address] July, [facility] [place] [facility] [address] [id number] [place] [address] July, [facility] [place] [facility] [address] [id number] [place] [address] July, [facility] [place] [facility] [address] [facility] [id number] [place] [id number] July, [facility] [place] [facility] [address] [id number] [place] [address] July, [facility] [place] [facility] [address] [id number] [place] [address] Jun, [facility] [place] [facility] [address] [id number] [place] [address] May, [facility] [place] [facility] [id number] [place] [address] May, [facility] [place] [facility] [id number] [place] [address] May, [facility] [place] [facility] [address] [id number] [place] [address] Apr, [facility] [place] [facility] [address] [id number] [place] [address] Apr, [facility] [place] [facility] [id number] [place] [address] Apr, [facility] [place] [facility] [address] [id number] [place] [address] Mar, [facility] [place] [facility] [address] [id number] [place] [address] Mar, [facility] [place] [facility] [id number] [place] [address] Mar, [facility] [place] [facility] [address] [id number] [place] [address] Mar, [facility] [place] [facility] [id number] [place] [address] Mar, [facility] [place] [facility] [address] [id number] [place] [address] Mar, [facility] [place] [facility] [address] [id number] [place] [address] Mar, [facility] [place] [facility] [address] [id number] [place] [address] Feb, [facility] [place] [facility] [address] [id number] [place] [address] Feb, [facility] [place] [facility] [address] [id number] [place] [address] Feb, [facility] [place] [facility] [address] [id number] [place] [address] Feb, [facility] [place] [facility] [address] [id number] [place] [address] Feb, [facility] [place] [facility] [address] [id number] [place] [address] Feb, [facility] [place] [facility] [address] [id number] [place] [address] Feb, [facility] [place] [facility] [address] [id number] [place] [address] Feb, [facility] [place] [facility] [address] [id number] [place] [address] Jan, [facility] [place] [facility] [address] [id number] [place] [address] Jan, [facility] [place] [facility] [address] [id number] [place] [address] Jan, [facility] [place] [facility] [address] [id number] [place] [address] Jan, [facility] [place] [facility] [address] [id number] [place] [address] Jan, [facility] [place] [facility] [address] [id number] [place] [address] Jan, [facility] [place] [facility] [address] [id number] [place] [address] Jan, [facility] [place] [facility] [address] [id number] [place] [address] Jan, [facility] [place] [facility] [address] [id number] [place] [address] Jan, [facility] [place] [facility] [address] [id number] [place] [address] Jan, [facility] [place] [facility] [address] [id number] [place] [address] Jan, [facility] [place] [facility] [address] [id number] [place] [address] Jan, [facility] [place] [facility] [address] [id number] [place] [address] Jan, [facility] [place] [facility] [address] [id number] [place] [address] Jan, [facility] [place] [facility] [id number] [place] [address] Jan, [facility] [place] [facility] [address] [id number] [place] [address] Jan, [facility] [place] [facility] [address] [id number] [place] [address] Dec, [facility] [place] [facility] [address] [id number] [place] [address] Dec, [facility] [place] [facility] [address] [id number] [place] [address] Dec, [facility] [place] [facility] [address] [id number] [place] [address] Dec, [facility] [place] [facility] [id number] [place] [address] Dec, [facility] [place] [facility] [address] [id number] [place] [address] Dec, [facility] [place] [facility] [address] [id number] [place] [address] Dec, [facility] [place] [facility] [address] [facility] [id number] [place] [address] Dec, [facility] [place] [facility] [address] [id number] [place] [address] 08 Dec, 2011 [facility] [place] [facility] [address] [id number] [place] [address] 05 Dec, 2011 [facility] [place] [facility] [address] [id number] [place] [address] 18 Nov, 2011 [facility] [place] [facility] [address] [id number] [place] [address] 13 Nov, 2011 [facility] [place] [facility] [address] [id number] [place] [address] 24 Oct, 2011 [facility] [place] [facility] [address] [id number] [place] [address] Oct, [facility] [place] [facility] [address] [id number] [place] [address] 17 Oct, 2011 [facility] [place] [facility] [address] [id number] [place] [address] 16 Oct, 2011 [facility] [place] [facility] [address] [id number] [place] [address] Oct, [facility] [place] [facility] [address] [id number] [place] [address] Oct, [facility] [place] [facility] [address] [id number] [place] [address] Oct, [facility] [place] [facility] [address] [id number] [place] [address] Sep, [facility] [place] [facility] [address] [id number] [place] [address] Aug, [facility] [place] [facility] [address] [id number] [place] [address] Aug, [facility] [place] [facility] [address] [id number] [place] [address] Aug, [facility] [place] [facility] [address] [id number] [place] [address] Aug, [facility] [place] [facility] [address] [facility] [id number] [place] [address] Aug, [facility] [place] [facility] [address] [id number] [place] [address] July, [facility] [place] [facility] [address] [id number] [place] [address] July, [facility] [place] [facility] [address] [id number] [place] [address] July, [facility] [place] [facility] [address] [facility] [id number] [place] [address] Jun, [facility] [place] [facility] [address] [id number] [place] [address] Jun, [facility] [place] [facility] [address] [id number] [place] [address] Jun, [facility] [place] [facility] [address] [id number] [place] [address] Jun, [facility] [place] [facility] [address] [id number] [place] [address] May, [facility] [place] [facility] [address] [id number] [place] [address] May, [facility] [place] [facility] [address] [id number] [place] [address] May, [facility] [place] [facility] [address] [id number] [place] [address] May, [facility] [place] [facility] [address] [id number] [place] [address] May, [facility] [place] [facility] [address] [id number] [place] [address] May, [facility] [place] [facility] [address] [id number] [place] [address] May, [facility] [place] [facility] [address] [id number] [place] [address] May, [facility] [place] [facility] [address] [id number] [place] [address] 08 May, 2011 [facility] [place] [facility] [address] [id number] [place] [address] May, [facility] [place] [facility] [address] [id number] [place] [address] May, [facility] [place] [facility] [address] [id number] [place] [address] May, [facility] [place] [facility] [address] [id number] [place] [address] Mar, [facility] [place] [facility] [address] [id number] [place] [address] Mar, [facility] [place] [facility] [address] [id number] [place] [address] Feb, [facility] [place] [facility] [address] [id number] [place] [address] Feb, [facility] [place] [facility] [address] [id number] [place] [address] 20 Feb, 2011 [facility] [place] [facility] [address] [id number] [place] [address] 15 Feb, 2011 [facility] [place] [facility] [address] [id number] [place] [address] Feb, [facility] [place] [facility] [address] [id number] [place] [address] 13 Feb, 2011 [facility] [place] [facility] [address] [id number] [place] [address] 13 Feb, 2011 [facility] [place] [facility] [address] [id number] [place] [address] 28 Jan, 2011 [facility] [place] [facility] [id number] [place] [address] 23 Jan, 2011 [facility] [place] [facility] [address] [id number] [place] [address] 22 Jan, 2011 [facility] [place] [facility] [address] [id number] [place] [address] 17 Jan, 2011 [facility] [place] [facility] [address] [id number] [place] [address] Jan, [facility] [place] [facility] [address] [id number] [place] [address] Jan, [facility] [place] [facility] [address] [id number] [place] [address] Dec, [facility] [address] [id number] [place] [address] Dec, [facility] [address] [id number] [place] [address] Dec, [facility] [address] [id number] [place] [address] July, [facility] [address] [id number] [place] [address] July, [facility] [address] [id number] [place] [address] Feb, [facility] [address] [id number] [place] [address] Jan, [facility] [address] [id number] [place] [address] Dec, [facility] [address] [id number] [place] [address] Dec, [facility] [address] [id number] [place] [address] Sep, [facility] [address] [id number] [place] [address] Aug, [facility] [address] [id number] [place] [address] Jun, [facility] [address] [id number] [place] [address] Jun, [facility] [address] [id number] [place] [address] Jan, [facility] [address] [id number] [place] [address] Jan, [facility] [address] [id number] [place] [address] Jan, [facility] [address] [id number] [place] [address] Jan, [facility] [address] [id number] [place] [address] Dec, [facility] [id number] [place] [address] Dec, [facility] [address] [id number] [place] [address] Dec, [facility] [id number] [place] [address] Nov, [facility] [address] [id number] [place] [address] July, [facility] [id number] [place] [address] May, [facility] [address] [id number] [place] [address] Apr, [facility] [id number] [place] [address] Feb, [facility] [address] [id number] [place] [address] Dec, IMMUNIZATIONS No Known Immunizations SOCIAL HISTORY Never Assessed REASON FOR VISIT PLAN OF CARE VITAL SIGNS MEDICATIONS Unknown Medications RESULTS No Results PROCEDURES Procedure Date Ordered Result Body Site PSYTX PT&/FAMILY 45 MINUTES May 19, 2013 INSTRUCTIONS MEDICATIONS ADMINISTERED No Known Medications [...]
--- OUTSIDE RECORDS SUMMARY | 2019-06-22 19:40 | XMS REPORT ---
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 Active 54580202 Problem Lumbar radiculopathy M54.16 Active 949313249 Problem Irritable bowel syndrome with diarrhea K58.0 Active 236147246 Problem half-way current 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 Z79.891 Active 257313614 Problem Diabetes E11.9 Active 741114179 Problem Type 2 diabetes mellitus with complication E11.8 Active 314441431 Problem Post laminectomy syndrome M96.1 Acti ve 70480875 Problem Bipolar 1 disorder F31.9 Active 3 07906743 Problem New daily persistent headache G44.52 Active 299760903 Problem Type 2 diabetes mellitus with hyperglycemia E11.65 Active 11688192 Problem Other chronic pain G89.29 Active 8 1002392 Problem Essential hypertension I10 Active 92943598 Problem Acute bilateral low back pain with right-sided sciatica M54.41 Active 997704849 Problem Bipolar disorder, in partial remission, most rec ent episode manic F31.73 Active 84933194 Problem Seasonal allergic rhinitis due to pollen J30.1 Active 29449642 Problem Hyperlipidemia, unspecified E78.5 Ac tive 83794823 Problem Eye exam normal Z01.00 Active 2438 85493 Problem Extreme poverty Z59.5 Active 1140 3006 Problem Lumbago with sciatica, left side M54.42 Active 566508052 Problem Hypertriglyceridemia E78.1 Active 547382729 Problem Insulin long-term use Z79.4 Active 285779121 Problem Rhinosinusitis J32.9 Active 79924 000 ALLERGIES No Information ENCOUNTERS Encounter Location Date Diagnosis [facility] [address] [id number] [place] [address] May, [facility] [id number] [place] [address] May, [facility] [address] [address] Apr, [facility] [address] [facility] [id number] [address] [place] [address] Apr, Seasonal allergic rhinitis d ue to pollen J30.1 [facility] [address] [address] Apr, Essential hypertension I10 and Diabetes E11.9 [facility] [address] [address] Apr, [facility] [address] [address] Mar, Bipolar 1 disorder F31.9 ; Borderline in tellectual functioning R41.83 and Extreme poverty Z59.5 [place] [address] [address] Mar, Exercise counseling Z71.82 [place] [address] [address] Mar, [place] [address] [address] Mar, Bipolar disorder, in partial remission, most recent episode manic F31.73 and 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 [place] [address] [address] Mar, [facility] [address] [address] Mar, Exercise counseling Z71.82 [place] [address] [address] Feb, Bipolar 1 disorder F31.9 ; Borderline in tellectual functioning R41.83 and Extreme poverty Z59.5 [place] [address] [address] Feb, [facility] [id number] [place] [address] Feb, Type 2 diabetes mellitus with complicati on E11.8 [facility] [address] [facility] [id number] [address] [place] [address] Feb, Acute low back pain without sciatica, unspecified back pain laterality M54.5 [facility] [address] [address] Feb, Bipolar 1 disorder F31.9 ; Borderline in tellectual functioning R41.83 and Extreme poverty Z59.5 [place] [address] [address] Jan, Bipolar 1 disorder F31.9 ; Borderline in tellectual functioning R41.83 and Extreme poverty Z59.5 [facility] [address] [address] Jan, [facility] [address] [address] Jan, Type 2 diabetes mellitus with complicati on E11.8 [facility] [address] [address] Jan, Type 2 diabetes mellitus with complicati on E11.8 ; Dysuria R30.0 and Diarrhea, unspecified type R19.7 [facility] [address] [address] Jan, Bipolar 1 disorder F31.9 ; Borderline in tellectual functioning R41.83 and Extreme poverty Z59.5 [facility] [address] [address] Dec, [place] [address] [address] Dec, [facility] [address] [address] Dec, [facility] [address] [address] Dec, [facility] [address] [address] Dec, Rhinosinusitis J32.9 [facility] [address] [address] Dec, [facility] [address] [address] Dec, Bipolar 1 disorder F31.9 ; Borderline in tellectual functioning R41.83 and Extreme poverty Z59.5 [place] [address] [address] Dec, Type 2 diabetes mellitus with complicati on E11.8 and Type 2 diabetes mellitus with hyperglycemia E11.65 [place] [address] [address] Dec, [place] [address] [address] Dec, Type 2 diabetes mellitus with complicati on E11.8 ; Insulin long-term use Z79.4 ; Hyperglycemia R73.9 and Yeast infection B37.9 [place] [address] [address] Dec, Encounter for immunization Z23 [place] [address] [address] Nov, [place] [address] [address] Nov, Bipolar 1 disorder F31.9 ; Borderline in tellectual functioning R41.83 and Extreme poverty Z59.5 [place] [address] [address] Nov, [place] [address] [address] Nov, [place] [address] [address] Nov, Borderline intellectual functioning R41. 83 and Bipolar disorder, in partial remission, most recent episode manic F31.73 [facility] [address] [place] [address] Nov, Epigastric abdominal pain R1 0.13 [facility] [address] [id number] Nov, Bipolar 1 disorder F31.9 ; Borderline in tellectual functioning R41.83 and Extreme poverty Z59.5 [facility] [address] [place] [address] [id number] [address] [place] [address] Oct, Dysuria R30.0 and Acute cyst itis without hematuria N30.00 [facility] [address] [place] [address] [id number] [address] [place] [address] Oct, [facility] [address] [address] Oct, [facility] [address] [address] Oct, Bipolar 1 disorder F31.9 ; Borderline in tellectual functioning R41.83 and Extreme poverty Z59.5 [facility] [address] [address] Oct, [facility] [address] [address] Oct, [facility] [address] [address] Oct, Bipolar disorder, in partial remission, most recent episode manic F31.73 and 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 [facility] [address] [address] Oct, Bipolar 1 disorder F31.9 ; Borderline in tellectual functioning R41.83 and Extreme poverty Z59.5 [facility] [address] [address] Oct, Diarrhea, unspecified type R19.7 [facility] [address] [facility] [place] [id number] Sep, Dental examination Z01.20 and Dental car ies K02.9 [facility] [address] [facility] [id number] [address] [place] [address] Sep, Mouth pain K13.79 [facility] [id number] [place] [address] Sep, [facility] [address] [address] Sep, Bipolar 1 disorder F31.9 ; Borderline in tellectual functioning R41.83 and Extreme poverty Z59.5 [facility] [address] [address] Sep, [facility] [address] [address] Sep, [facility] [address] [address] Sep, Diabetes E11.9 ; Hyperglycemia R73.9 ; L eliseo term current use of insulin Z79.4 and Diarrhea, unspecified type R19.7 [facility] [address] [address] Sep, [facility] [address] [address] Sep, Bipolar 1 disorder F31.9 ; Borderline in tellectual functioning R41.83 and Extreme poverty Z59.5 [facility] [address] [address] Sep, [facility] [address] [address] Sep, [facility] [address] [address] Aug, Bipolar 1 disorder F31.9 ; Borderline in tellectual functioning R41.83 and Extreme poverty Z59.5 [place] [address] [address] Aug, Exercise counseling Z71.82 [facility] [address] [address] Aug, Bipolar 1 disorder F31.9 ; Borderline in tellectual functioning R41.83 and Extreme poverty Z59.5 [facility] [address] [address] Aug, Borderline intellectual functioning R41. 83 and Bipolar disorder, in partial remission, most recent episode manic F31.73 [place] [address] [address] Aug, Low back pain M54.5 [place] [address] [address] Aug, Borderline intellectual functioning R41. 83 and Bipolar disorder, in partial remission, most recent episode manic F31.73 [place] [address] [address] July, Acute superficial gastritis without hemo rrhage K29.00 ; Low back pain M54.5 and Other chronic pain G89.29 [place] [address] [address] July, [place] [address] [address] July, [facility] [address] [address] [id number] [place] [address] Jun, [facility] [address] [facility] [id number] [place] [address] Jun, Bilateral lower extremity ed epi R60.0 [place] [address] [address] Jun, Borderline intellectual functioning R41. 83 and Bipolar disorder, in partial remission, most recent episode manic F31.73 [facility] [address] [address] Jun, [facility] [address] [address] 20 May, 2018 Bronchitis J40 [place] [address] [address] 14 May, 2018 Screening for breast cancer Z12.31 and E ncounter for immunization Z23 [place] [address] [address] 06 May, 2018 Bipolar 1 disorder F31.9 ; Borderline in tellectual functioning R41.83 and Extreme poverty Z59.5 [place] [address] [address] 11 Apr, 2018 [place] [address] [address] 07 Apr, 2018 Bipolar 1 disorder F31.9 ; Borderline in tellectual functioning R41.83 and Extreme poverty Z59.5 [place] [address] [address] 05 Apr, 2018 Irritable bowel syndrome with diarrhea K 58.0 and Dental abscess K04.7 [place] [address] [address] Mar, [place] [address] [address] Mar, [place] [address] [address] 16 Mar, 2018 Bipolar 1 disorder F31.9 ; Borderline in tellectual functioning R41.83 and Extreme poverty Z59.5 [place] [address] [address] Mar, Hypertriglyceridemia E78.1 [place] [address] [address] Mar, Borderline intellectual functioning R41. 83 and Bipolar disorder, in partial remission, most recent episode manic F31.73 [place] [address] [address] Mar, Bipolar 1 disorder F31.9 ; Borderline in tellectual functioning R41.83 and Extreme poverty Z59.5 [place] [address] [address] Feb, Generalized abdominal pain R10.84 and Di arrhea, unspecified type R19.7 [place] [address] [address] Feb, [place] [address] [place] [address] [address] Feb, Myalgia M79.10 and Nausea R11.0 [place] [address] [address] Feb, Bipolar 1 disorder F31.9 ; Borderline in tellectual functioning R41.83 and Extreme poverty Z59.5 [place] [address] [address] Feb, [place] [address] [address] Feb, Diabetes E11.9 ; Hyperglycemia R73.9 and Diarrhea, unspecified R19.7 [place] [address] [address] Feb, Diarrhea, unspecified type R19.7 ; Abdom inal pain R10.9 and Encounter for immunization Z23 [place] [address] [address] Jan, Bipolar 1 disorder F31.9 ; Borderline in tellectual functioning R41.83 and Extreme poverty Z59.5 [place] [address] [address] Dec, Bipolar 1 disorder F31.9 ; Borderline in tellectual functioning R41.83 and Extreme poverty Z59.5 [place] [address] [address] Nov, [place] [address] [address] Nov, Hypertriglyceridemia E78.1 [place] [address] [address] 20 Nov, 2017 Bipolar 1 disorder F31.9 ; Borderline in tellectual functioning R41.83 and Extreme poverty Z59.5 [place] [address] [address] 18 Nov, 2017 Type 2 diabetes mellitus with complicati on E11.8 [place] [address] [address] 18 Nov, 2017 Borderline intellectual functioning R41. 83 and Bipolar disorder, in partial remission, most recent episode manic F31.73 [place] [address] [address] 12 Nov, 2017 Type 2 diabetes mellitus with complicati on E11.8 [place] [address] [address] Nov, Bipolar 1 disorder F31.9 ; Borderline in tellectual functioning R41.83 and Extreme poverty Z59.5 [place] [address] [address] 10 Nov, 2017 Type 2 diabetes mellitus with complicati on E11.8 ; Pain of left upper arm M79.622 ; Pain in right upper arm M79.621 ; Hyperglycemia R73.9 ; Lumbago with sciatica, left side M54.42 and Other chronic pain G89.29 [place] [address] [address] Oct, Bipolar 1 disorder F31.9 ; Borderline in tellectual functioning R41.83 and Extreme poverty Z59.5 [place] [address] [address] Oct, Type 2 diabetes mellitus with hyperglyce didi E11.65 ; 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 and Other acute gastritis without hemorrhage K29.00 [place] [address] [address] Oct, Bipolar 1 disorder F31.9 ; Borderline in tellectual functioning R41.83 and Extreme poverty Z59.5 [place] [id number] [place] [address] 16 Sep, 2017 Diarrhea, unspecified R19.7 and Vomiting , unspecified R11.10 [facility] [id number] [place] [address] Aug, Type 2 diabetes mellitus with complicati on E11.8 [place] [address] [address] Aug, [place] [address] [address] Aug, Bipolar 1 disorder F31.9 ; Borderline in tellectual functioning R41.83 and Extreme poverty Z59.5 [place] [address] [address] Aug, Borderline intellectual functioning R41. 83 and Bipolar disorder, in partial remission, most recent episode manic F31.73 [place] [id number] [place] [address] Aug, Bipolar 1 disorder F31.9 [place] [address] [address] Aug, [place] [address] [address] Aug, [place] [address] [address] Aug, Bipolar 1 disorder F31.9 ; Borderline in tellectual functioning R41.83 and Extreme poverty Z59.5 [place] [address] [place] [address] July, Type 2 diabetes mellitus with complicati on E11.8 [place] [address] [place] [address] July, Bipolar 1 disorder F31.9 ; Borderline in tellectual functioning R41.83 and Extreme poverty Z59.5 [place] [address] [address] Jun, Bipolar 1 disorder F31.9 ; Borderline in tellectual functioning R41.83 and Extreme poverty Z59.5 [place] [address] [address] Jun, Bipolar 1 disorder F31.9 ; Borderline in tellectual functioning R41.83 and Extreme poverty Z59.5 [place] [address] [address] Jun, Bipolar 1 disorder F31.9 ; Borderline in tellectual functioning R41.83 and Extreme poverty Z59.5 [place] [address] [address] May, Urinary tract infection without hematuri a, site unspecified N39.0 [place] [address] [address] May, Bipolar 1 disorder F31.9 ; Borderline in tellectual functioning R41.83 and Extreme poverty Z59.5 [place] [address] [address] 28 Apr, 2017 Diabetes E11.9 and Breast cancer screeni ng Z12.31 [place] [address] [address] Apr, Bipolar 1 disorder F31.9 and 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 [place] [address] [address] Mar, Bipolar 1 disorder F31.9 ; Borderline in tellectual functioning R41.83 and Extreme poverty Z59.5 [place] [address] [address] Mar, New daily persistent headache G44.52 ; L eg pain 729.5 and History of carpal tunnel release Z98.890 [place] [address] [address] Mar, Hyperlipidemia, unspecified E78.5 [place] [address] [address] Mar, Bipolar 1 disorder F31.9 ; Borderline in tellectual functioning R41.83 and Extreme poverty Z59.5 [place] [address] [address] Feb, Bipolar 1 disorder F31.9 ; Borderline in tellectual functioning R41.83 and Extreme poverty Z59.5 [place] [address] [address] Feb, Diabetes E11.[address] [address] Feb, Viral syndrome B34.[address] [address] Jan, Other viral agents as the cause of disea ses classified elsewhere B97.89 and Acute upper respiratory infection, unspecified J06.[address] [address] Jan, Bipolar 1 disorder F31.9 and Borderline intellectual functioning R41.[address] [address] Jan, Bipolar 1 disorder F31.9 ; Borderline in tellectual functioning R41.83 and Extreme poverty Z59.[address] [address] Dec, Diabetes E11.[address] [address] Dec, Diabetes E11.9 and Encounter for immuniz ation Z23 [address] [address] Dec, Bipolar 1 disorder F31.9 ; Borderline in tellectual functioning R41.83 and Extreme poverty Z59.[address] [address] Dec, Back pain M54.9 [facility] [address] [address] Nov, [place] [address] [address] Nov, Bipolar 1 disorder F31.9 ; Borderline in tellectual functioning R41.83 and Extreme poverty Z59.5 [place] [address] [address] Nov, Bipolar 1 disorder F31.9 ; Borderline in tellectual functioning R41.83 and Extreme poverty Z59.5 [place] [address] [address] Oct, Borderline intellectual functioning R41. 83 and Bipolar 1 disorder F31.9 [place] [address] [address] Oct, Bipolar 1 disorder F31.9 ; Borderline in tellectual functioning R41.83 and Extreme poverty Z59.5 [place] [address] [address] Oct, Back pain M54.9 [place] [address] [address] Oct, Borderline intellectual functioning R41. 83 and Type 2 diabetes mellitus with complication E11.8 [place] [address] [address] Sep, Bipolar 1 disorder F31.9 ; Borderline in tellectual functioning R41.83 and Extreme poverty Z59.5 [place] [address] [address] Sep, Borderline intellectual functioning R41. 83 and Bipolar 1 disorder F31.9 [place] [address] [address] Sep, Bipolar 1 disorder F31.9 ; Borderline in tellectual functioning R41.83 and Extreme poverty Z59.5 [place] [address] [address] Aug, Diabetes E11.9 ; Hyperlipidemia, unspeci fied E78.5 and Lumbar radiculopathy M54.16 [place] [address] [address] Aug, Bipolar 1 disorder F31.9 ; Borderline in tellectual functioning R41.83 and Extreme poverty Z59.5 [place] [address] [address] Aug, [facility] [address] [address] Aug, [place] [address] [address] Aug, [place] [address] [address] July, [place] [address] [address] July, Acute bilateral low back pain with right -sided sciatica M54.41 [place] [address] [address] July, Bipolar 1 disorder F31.9 ; Borderline in tellectual functioning R41.83 and Extreme poverty Z59.5 [place] [address] [address] July, Back pain M54.9 and Diabetes E11.9 [place] [address] [address] Jun, Bipolar 1 disorder F31.9 ; Borderline in tellectual functioning R41.83 and Extreme poverty Z59.5 [place] [address] [address] Jun, Bipolar 1 disorder F31.9 ; Borderline in tellectual functioning R41.83 and Extreme poverty Z59.5 [place] [address] [address] May, Visit for pelvic exam Z01.419 ; Acute va ginitis N76.0 and Diabetes E11.9 [place] [address] [address] 16 May, 2016 Bipolar 1 disorder F31.9 ; Borderline in tellectual functioning R41.83 and Extreme poverty Z59.5 [place] [address] [address] 08 May, 2016 [place] [address] [address] May, [place] [address] [address] May, Bipolar 1 disorder F31.9 ; Borderline in tellectual functioning R41.83 and Extreme poverty Z59.5 [place] [address] [address] May, Hyperlipidemia, unspecified E78.5 [place] [address] [address] 13 Apr, 2016 Breast cancer screening Z12.39 [place] [address] [address] Mar, [place] [address] [address] Mar, Bipolar disorder, current episode mixed, unspecified F31.60 [place] [address] [address] Mar, Bipolar 1 disorder F31.9 ; Borderline in tellectual functioning R41.83 and Extreme poverty Z59.5 [place] [address] [address] Feb, Acute nasopharyngitis J00 [place] [address] [address] Feb, Dental examination Z01.20 [place] [address] [address] Feb, Dental cavities K02.9 and Chronic period ontitis, unspecified K05.30 [place] [address] [address] 13 Feb, 2016 Low back pain M54.5 and Extreme poverty Z59.5 [place] [address] [place] [address] 08 Feb, [address] [address] 05 Feb, 2016 Routine gynecological examination V72.31 ; Breast cancer screening Z12.39 and Herpes simplex type [address] [address] 02 Feb, 2016 Diabetes E11.9 [place] [id number] 01 Feb, 2016 Encounter for dental examination and leti aning without abnormal findings Z01.[address] [address] 22 Jan, 2016 Hyperlipidemia, unspecified E78.[address] [address] 22 Jan, 2016 Bipolar 1 disorder F31.9 ; Borderline in tellectual functioning R41.83 and Extreme poverty Z59.[address] [address] 18 Jan, 2016 Diabetes E11.9 [place] [address] [address] 17 Jan, 2016 Diabetes E11.9 [place] [address] [address] 14 Dec, 2015 Bipolar 1 disorder F31.9 ; Borderline in tellectual functioning R41.83 and Extreme poverty Z59.5 [place] [address] [address] 13 Dec, 2015 Bipolar disorder, current episode mixed, unspecified F31.60 and Borderline intellectual functioning R41.[address] [address] Nov, Bipolar 1 disorder F31.9 ; Borderline in tellectual functioning R41.83 ; Extreme poverty Z59.5 and Non compliance with medical treatment Z91.19 [place] [address] [address] Oct, [place] [address] [address] Oct, Dental caries K02.9 [place] [address] [address] Oct, Low back pain M54.5 and Other chronic pa in G89.29 [place] [address] [address] Oct, Bipolar 1 disorder F31.9 ; Borderline in tellectual functioning R41.83 ; Extreme poverty Z59.5 and Non compliance with medical treatment Z91.19 [place] [address] [address] Oct, [place] [address] [address] [address] Oct, [place] [address] [address] Oct, Dental examination Z01.20 [place] [address] [address] Oct, Bipolar 1 disorder F31.9 ; Borderline in tellectual functioning R41.83 ; Extreme poverty Z59.5 and Non compliance with medical treatment Z91.19 [place] [address] [address] Oct, [place] [address] [address] Sep, Type 2 diabetes mellitus with complicati on E11.8 [place] [address] [address] Sep, Bipolar disorder, current episode mixed, unspecified F31.60 [place] [address] [address] Sep, Bipolar disorder, current episode mixed, unspecified F31.60 [place] [address] [address] Sep, Bipolar disorder, in partial remission, most recent episode manic F31.73 ; 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 ; Extreme poverty Z59.5 and Non compliance with medical treatment Z91.19 [place] [address] [address] Aug, Bipolar disorder, in partial remission, most recent episode manic F31.73 ; 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 ; Extreme poverty Z59.5 and Non compliance with medical treatment Z91.19 [place] [address] [address] Aug, Bipolar disorder, in partial remission, most recent episode manic F31.73 ; 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 ; Extreme poverty Z59.5 and Non compliance with medical treatment Z91.19 [place] [address] [address] Aug, [place] [address] [address] July, Bipolar disorder, in partial remission, most recent episode manic F31.73 ; 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 ; Extreme poverty Z59.5 and Non compliance with medical treatment Z91.19 [place] [address] [address] July, Bipolar disorder, current episode mixed, unspecified F31.60 [place] [address] [address] July, Bipolar disorder, in partial remission, most recent episode manic F31.73 ; 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 ; Extreme poverty Z59.5 and Non compliance with medical treatment Z91.19 [place] [address] [address] July, half-way current use of opiate analgesi c Z79.891 and Chronic pain G89.29 [place] [address] [address] Jun, 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 and Bipolar 1 disorder F31.9 [place] [address] [address] Jun, [place] [address] [address] Jun, [place] [address] [address] Jun, [place] [address] [address] Jun, Bipolar disorder, in partial remission, most recent episode manic F31.73 ; 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 and Non compliance with medical treatment Z91.19 [place] [address] [address] May, Bipolar disorder, in partial remission, most recent episode manic F31.73 ; 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 and Non compliance with medical treatment Z91.19 [place] [address] [address] May, Bipolar disorder, in partial remission, most recent episode manic F31.73 [place] [address] [address] May, Diabetes E11.9 and Chronic pain G89.29 [place] [address] [address] May, [place] [address] [address] May, Bipolar disorder, in partial remission, most recent episode manic F31.73 ; Non compliance with medical treatment Z91.19 and 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 [place] [address] [address] May, Type 2 diabetes mellitus with complicati on E11.8 and Back pain M54.9 [place] [address] [address] May, Bipolar disorder, in partial remission, most recent episode manic F31.73 and 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 [place] [address] [address] Apr, [place] [address] [address] Apr, [place] [address] [address] Apr, [place] [address] [address] 09 Apr, 2015 Diabetes E11.9 ; Irritable bowel syndrom e with diarrhea K58.0 and Lumbar radiculopathy M54.16 [place] [address] [address] Apr, Breast screening Z12.[address] [address] Apr, Bipolar disorder, in partial remission, most recent episode manic F31.73 ; Non compliance with medical treatment Z91.19 and 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1 [place] [address] [address] Mar, Bipolar disorder, in partial remission, most recent episode manic F31.73 ; 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 and Extreme poverty Z59.5 [place] [address] [address] Feb, Bipolar disorder, in partial remission, most recent episode manic F31.73 ; 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 and Extreme poverty Z59.5 [place] [address] [address] Feb, Bipolar disorder, in partial remission, most recent episode manic F31.73 ; Borderline intellectual functioning R41.83 and Extreme poverty Z59.5 [place] [address] [address] Feb, [place] [address] [address] Jan, Type 2 diabetes mellitus with complicati on E11.8 and Petechiae R23.3 [place] [address] [address] Jan, Type 2 diabetes mellitus with complicati on E11.8 ; Edema, unspecified R60.9 ; Petechiae R23.3 and Diabetes E11.9 [place] [address] [address] Jan, Bipolar disorder, in partial remission, most recent episode manic F31.73 ; 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 and Extreme poverty Z59.5 [place] [address] [address] Jan, Bipolar disorder, in partial remission, most recent episode manic F31.73 ; 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 and Extreme poverty Z59.5 [place] [address] [address] Dec, Bipolar disorder, in partial remission, most recent episode manic F31.73 [facility] [address] [address] Dec, Edema, due to unspecified malnutrition t ype, unspecified edema R60.9 and Essential hypertension I10 [place] [address] [address] Dec, Bipolar disorder, in partial remission, most recent episode manic F31.73 [place] [address] [address] Nov, Bipolar I disorder, most recent episode (or current) mixed, unspecified 296.60 [place] [address] [address] Nov, Stress incontinence, female 625.6 ; Back pain 724.5 and Leg pain 729.5 [place] [address] [address] Nov, Generalized anxiety disorder 300.02 and Bipolar II disorder 296.89 [place] [address] [address] Nov, Bipolar I disorder, most recent episode (or current) mixed, unspecified 296.60 [place] [address] [address] Oct, [place] [address] [address] Oct, [place] [address] [address] Oct, [place] [address] [address] Oct, Bipolar I disorder, most recent episode (or current) mixed, unspecified 296.60 [facility] [address] [address] Sep, Diabetes 250.00 [place] [address] [address] Sep, Bipolar I disorder, most recent episode (or current) mixed, unspecified 296.60 [facility] [address] [address] Sep, [facility] [address] [address] Sep, [facility] [address] [address] Sep, Bipolar I disorder, most recent episode (or current) mixed, unspecified 296.60 [facility] [address] [address] Sep, Bipolar I disorder, most recent episode (or current) mixed, unspecified 296.60 [facility] [address] [address] Sep, [facility] [address] [address] Sep, Anxiety 300.00 ; Diabetes 250.00 and Hyp erlipidemia 272.4 [facility] [address] [address] Aug, [facility] [address] [address] Aug, [facility] [address] [address] Aug, [facility] [address] [address] Aug, Bipolar I disorder, most recent episode (or current) mixed, unspecified 296.60 [facility] [address] [address] Aug, Generalized anxiety disorder 300.02 and Bipolar II disorder 296.89 [facility] [address] [address] July, Bipolar I disorder, most recent episode (or current) mixed, unspecified 296.60 [facility] [address] [address] July, Cough 786.2 [facility] [address] [place] [id number] [place] [address] July, Bipolar I disorder, most recent episode (or current) mixed, unspecified 296.60 [facility] [address] [place] [id number] [place] [address] 30 Jun, 2014 Diabetes 250.00 [facility] [address] [place] [id number] [place] [address] 14 Jun, 2014 [facility] [address] [place] [id number] [place] [address] Jun, [facility] [address] [place] [id number] [place] [address] May, [facility] [address] [place] [id number] [place] [address] May, [facility] [address] [place] [id number] [place] [address] May, [facility] [address] [place] [id number] [place] [address] May, [facility] [address] [place] [id number] [place] [address] May, [facility] [address] [place] [id number] [place] [address] May, [facility] [address] [place] [id number] [place] [address] Apr, [facility] [address] [place] [id number] [place] [address] Apr, [facility] [address] [place] [id number] [place] [address] Apr, [facility] [address] [place] [id number] [place] [address] Apr, [facility] [address] [place] [id number] [place] [address] Apr, [facility] [place] [facility] [address] [id number] [place] [address] Apr, [facility] [place] [facility] [address] [id number] [place] [address] Apr, [facility] [place] [facility] [address] [id number] [place] [address] Apr, [facility] [place] [facility] [address] [id number] [place] [address] Mar, [facility] [place] [facility] [address] [id number] [place] [address] Mar, [facility] [place] [facility] [address] [id number] [place] [address] Mar, [facility] [place] [facility] [address] [id number] [place] [address] Mar, [facility] [place] [facility] [address] [id number] [place] [address] Mar, [facility] [place] [facility] [address] [id number] [place] [address] Mar, [facility] [place] [facility] [address] [id number] [place] [address] Mar, [facility] [place] [facility] [address] [id number] [place] [address] Mar, [facility] [place] [facility] [address] [id number] [place] [address] Feb, [facility] [place] [facility] [address] [id number] [place] [address] Feb, [facility] [place] [facility] [address] [id number] [place] [address] Feb, [facility] [place] [facility] [address] [id number] [place] [address] Feb, [facility] [place] [facility] [address] [id number] [place] [address] Feb, [facility] [place] [facility] [address] [id number] [place] [address] Feb, [facility] [place] [facility] [address] [facility] [id number] [place] [address] Feb, [facility] [place] [facility] [address] [id number] [place] [address] Feb, [facility] [place] [facility] [address] [id number] [place] [address] Feb, [facility] [place] [facility] [address] [id number] [place] [address] Feb, [facility] [place] [facility] [address] [id number] [place] [address] Jan, [facility] [place] [facility] [address] [id number] [place] [address] Jan, [facility] [place] [facility] [address] [id number] [place] [address] Jan, [facility] [place] [facility] [address] [id number] [place] [address] Jan, [facility] [place] [facility] [address] [id number] [place] [address] Jan, [facility] [place] [facility] [address] [id number] [place] [address] Jan, [facility] [place] [facility] [address] [id number] [place] [address] Jan, [facility] [place] [facility] [address] [id number] [place] [address] Jan, [facility] [place] [facility] [address] [id number] [place] [address] Jan, [facility] [place] [facility] [address] [id number] [place] [address] Jan, [facility] [place] [facility] [address] [id number] [place] [address] Jan, [facility] [place] [facility] [address] [id number] [place] [address] Jan, [facility] [place] [facility] [address] [id number] [place] [address] Jan, [facility] [place] [facility] [address] [id number] [place] [address] Jan, [facility] [place] [facility] [address] [id number] [place] [address] Jan, [facility] [place] [facility] [address] [id number] [place] [address] Dec, [facility] [place] [facility] [address] [id number] [place] [address] Dec, [facility] [place] [facility] [address] [id number] [place] [address] Dec, [facility] [place] [facility] [address] [id number] [place] [address] Dec, [facility] [place] [facility] [address] [id number] [place] [address] Dec, [facility] [place] [facility] [address] [id number] [place] [address] Dec, [facility] [place] [facility] [address] [id number] [place] [address] Dec, [facility] [place] [facility] [address] [id number] [place] [address] Dec, [facility] [place] [facility] [address] [id number] [place] [address] Nov, 2013 [facility] [place] [facility] [address] [id number] [place] [address] 25 Nov, 2013 [facility] [place] [facility] [address] [id number] [place] [address] 10 Nov, 2013 [facility] [place] [facility] [address] [id number] [place] [address] 10 Nov, 2013 [facility] [place] [facility] [address] [id number] [place] [address] 08 Sep, 2013 [facility] [place] [facility] [address] [id number] [place] [address] 08 Sep, 2013 [facility] [place] [facility] [address] [id number] [place] [address] 08 Sep, 2013 [facility] [place] [facility] [address] [id number] [place] [address] 08 Nov, 2013 [facility] [place] [facility] [address] [id number] [place] [address] 08 Nov, 2013 [facility] [place] [facility] [address] [id number] [place] [address] 08 Nov, 2013 [facility] [place] [facility] [address] [facility] [id number] [place] [address] Nov, 2013 [facility] [place] [facility] [address] [id number] [place] [address] 04 Nov, 2013 [facility] [place] [facility] [address] [id number] [place] [address] Nov, 2013 [facility] [place] [facility] [address] [id number] [place] [address] Nov, 2013 [facility] [place] [facility] [address] [id number] [place] [address] Nov, 2013 [facility] [place] [facility] [address] [id number] [place] [address] Oct, [facility] [place] [facility] [address] [id number] [place] [address] Oct, [facility] [place] [facility] [address] [id number] [place] [address] Oct, [facility] [place] [facility] [address] [id number] [place] [address] Oct, [facility] [place] [facility] [address] [id number] [place] [address] Oct, [facility] [place] [facility] [address] [id number] [place] [address] Oct, [facility] [place] [facility] [address] [id number] [place] [address] Oct, [facility] [place] [facility] [address] [id number] [place] [address] Oct, [facility] [place] [facility] [address] [id number] [facility] [place] [address] Oct, [facility] [place] [facility] [address] [facility] [id number] [facility] [place] [address] Oct, [facility] [place] [facility] [address] [facility] [id number] [facility] [place] [address] Oct, [facility] [place] [facility] [address] [facility] [id number] [place] [address] Oct, [facility] [place] [facility] [address] [facility] [id number] [facility] [place] [address] Oct, [facility] [place] [facility] [address] [facility] [id number] [place] [address] Oct, [facility] [place] [facility] [address] [facility] [id number] [place] [address] Sep, [facility] [place] [facility] [address] [id number] [facility] [place] [address] Sep, [facility] [place] [facility] [address] [facility] [id number] [facility] [place] [address] Sep, [facility] [place] [facility] [address] [facility] [id number] [facility] [place] [address] Sep, [facility] [place] [facility] [address] [facility] [id number] [place] [address] Sep, [facility] [place] [facility] [address] [id number] [place] [address] Sep, [facility] [place] [facility] [address] [facility] [id number] [place] [address] Sep, [facility] [place] [facility] [address] [facility] [id number] [place] [address] Sep, [facility] [place] [facility] [address] [facility] [id number] [place] [address] Aug, [facility] [place] [facility] [address] [facility] [id number] [facility] [place] [address] Aug, [facility] [place] [facility] [address] [facility] [id number] [place] [address] Aug, [facility] [place] [facility] [address] [id number] [place] [address] Aug, [facility] [place] [facility] [address] [id number] [place] [address] Aug, [facility] [place] [facility] [address] [id number] [place] [address] Aug, [facility] [place] [facility] [address] [id number] [place] [address] Aug, [facility] [place] [facility] [address] [id number] [place] [address] Aug, [facility] [place] [facility] [address] [id number] [place] [address] July, [facility] [place] [facility] [address] [id number] [place] [address] July, [facility] [place] [facility] [address] [id number] [place] [address] July, [facility] [place] [facility] [address] [id number] [place] [address] July, [facility] [place] [facility] [address] [id number] [place] [address] July, [facility] [place] [facility] [address] [id number] [place] [address] July, [facility] [place] [facility] [address] [id number] [place] [address] July, [facility] [place] [facility] [address] [id number] [place] [address] July, [facility] [place] [facility] [address] [id number] [place] [address] Jun, [facility] [place] [facility] [address] [id number] [place] [address] Jun, [facility] [place] [facility] [address] [id number] [place] [address] Jun, [facility] [place] [facility] [address] [facility] [id number] [place] [address] Jun, [facility] [place] [facility] [address] [id number] [place] [address] Jun, [facility] [place] [facility] [address] [id number] [place] [address] Jun, [facility] [place] [facility] [address] [id number] [place] [address] Jun, [facility] [place] [facility] [address] [id number] [place] [address] Jun, [facility] [place] [facility] [address] [id number] [place] [address] Jun, [facility] [place] [facility] [address] [id number] [place] [address] Jun, [facility] [place] [facility] [address] [id number] [place] [address] Jun, [facility] [place] [facility] [address] [id number] [place] [address] Jun, [facility] [place] [facility] [address] [id number] [place] [address] May, [facility] [place] [facility] [address] [id number] [place] [address] May, [facility] [place] [facility] [address] [id number] [place] [address] May, [facility] [place] [facility] [address] [id number] [place] [address] May, [facility] [place] [facility] [address] [id number] [place] [address] May, [facility] [place] [facility] [address] [id number] [place] [address] May, [facility] [place] [facility] [address] [id number] [place] [address] May, [facility] [place] [facility] [address] [id number] [place] [address] May, [facility] [place] [facility] [address] [facility] [id number] [facility] [place] [address] May, [facility] [place] [facility] [address] [facility] [id number] [place] [address] May, [facility] [place] [facility] [address] [facility] [id number] [facility] [place] [address] May, [facility] [place] [facility] [address] [facility] [id number] [place] [address] May, [facility] [place] [facility] [address] [facility] [id number] [place] [address] May, [facility] [place] [facility] [address] [id number] [place] [address] May, [facility] [place] [facility] [address] [id number] [facility] [place] [address] Apr, [facility] [place] [facility] [address] [id number] [place] [address] Apr, [facility] [place] [facility] [address] [facility] [id number] [facility] [place] [address] Apr, [facility] [place] [facility] [address] [id number] [facility] [place] [address] Apr, [facility] [place] [facility] [address] [id number] [facility] [place] [address] Apr, [facility] [place] [facility] [address] [id number] [facility] [place] [address] Apr, [facility] [place] [facility] [address] [facility] [id number] [facility] [place] [address] Mar, [facility] [place] [facility] [address] [id number] [place] [address] Mar, [facility] [place] [facility] [address] [facility] [id number] [facility] [place] [address] Mar, [facility] [place] [facility] [address] [id number] [place] [address] Mar, [facility] [place] [facility] [address] [id number] [place] [address] Mar, [facility] [place] [facility] [address] [id number] [place] [address] Mar, [facility] [place] [facility] [address] [id number] [place] [address] Mar, [facility] [place] [facility] [address] [id number] [place] [address] Mar, [facility] [place] [facility] [address] [id number] [place] [address] Mar, [facility] [place] [facility] [address] [id number] [place] [address] Mar, [facility] [place] [facility] [address] [id number] [place] [address] Mar, [facility] [place] [facility] [address] [id number] [place] [address] Mar, [facility] [place] [facility] [address] [id number] [place] [address] Mar, [facility] [address] [id number] [place] [address] Mar, [facility] [address] [id number] [place] [address] Feb, [facility] [address] [id number] [place] [address] Feb, [facility] [address] [id number] [place] [address] Feb, [facility] [address] [id number] [place] [address] Feb, [facility] [address] [id number] [place] [address] Feb, [facility] [address] [id number] [place] [address] Feb, [facility] [address] [id number] [place] [address] Feb, [facility] [address] [id number] [place] [address] 12 Feb, 2012 [facility] [address] [id number] [place] [address] Feb, 2012 [facility] [address] [id number] [place] [address] Feb, 2012 [facility] [address] [id number] [place] [address] Feb, 2012 [facility] [address] [id number] [place] [address] Feb, 2012 [facility] [address] [id number] [place] [address] Feb, 2012 [facility] [address] [id number] [place] [address] Feb, 2012 [facility] [id number] [place] [address] Feb, 2012 [facility] [address] [id number] [place] [address] Feb, 2012 [facility] [address] [id number] [place] [address] 24 Dec, 2012 [facility] [address] [id number] [place] [address] 24 Dec, 2012 [facility] [address] [id number] [place] [address] 16 Dec, 2012 [facility] [address] [id number] [place] [address] 16 Dec, 2012 [facility] [address] [id number] [place] [address] 16 Dec, 2012 [facility] [address] [id number] [place] [address] 16 Dec, 2012 [facility] [address] [id number] [place] [address] 14 Dec, 2012 [facility] [address] [id number] [place] [address] 14 Dec, 2012 [facility] [address] [facility] [id number] [facility] [place] [address] 10 Dec, 2012 [facility] [address] [facility] [id number] [facility] [place] [address] 10 Dec, 2012 [facility] [address] [id number] [facility] [place] [address] 10 Dec, 2012 [facility] [address] [facility] [id number] [facility] [place] [address] 10 Dec, 2012 [facility] [address] [facility] [id number] [facility] [place] [address] 03 Dec, 2012 [facility] [address] [id number] [place] [address] 25 Nov, 2012 [facility] [address] [id number] [place] [address] 20 Nov, 2012 [facility] [address] [id number] [place] [address] 18 Nov, 2012 [facility] [address] [facility] [id number] [facility] [place] [address] 16 Nov, 2012 [facility] [address] [id number] [place] [address] 12 Nov, 2012 [facility] [address] [id number] [place] [address] 11 Nov, 2012 [facility] [address] [id number] [place] [address] 05 Nov, 2012 [facility] [address] [facility] [id number] [facility] [place] [address] 15 Oct, 2012 [facility] [address] [id number] [place] [address] Oct, [facility] [address] [facility] [id number] [facility] [place] [address] Sep, [facility] [address] [id number] [place] [address] Sep, [facility] [address] [facility] [id number] [place] [address] 18 Sep, 2012 [facility] [address] [facility] [id number] [place] [address] 17 Sep, 2012 [facility] [address] [id number] [place] [address] 15 Sep, 2012 [facility] [address] [id number] [place] [address] 09 Sep, 2012 [facility] [address] [id number] [place] [address] 08 Sep, 2012 [facility] [address] [id number] [place] [address] Aug, [facility] [address] [id number] [place] [address] Aug, [facility] [address] [id number] [place] [address] 16 Aug, 2012 [facility] [address] [id number] [place] [address] Aug, [facility] [address] [id number] [place] [address] Aug, [facility] [address] [id number] [place] [address] Aug, [facility] [address] [id number] [place] [address] Aug, [facility] [address] [id number] [place] [address] Aug, [facility] [address] [id number] [place] [address] July, [facility] [address] [id number] [place] [address] July, [facility] [address] [id number] [place] [address] July, [facility] [address] [facility] [id number] [place] [id number] July, [facility] [address] [id number] [place] [address] July, [facility] [address] [id number] [place] [address] Jun, [facility] [address] [id number] [place] [address] May, [facility] [address] [id number] [place] [address] May, [facility] [address] [id number] [place] [address] May, [facility] [address] [id number] [place] [address] Apr, [facility] [address] [id number] [place] [address] Apr, [facility] [address] [id number] [place] [address] Apr, [facility] [address] [id number] [place] [address] Mar, [facility] [address] [id number] [place] [address] Mar, [facility] [address] [id number] [place] [address] Mar, [facility] [address] [id number] [place] [address] Mar, [facility] [address] [id number] [place] [address] Mar, [facility] [address] [id number] [place] [address] Mar, [facility] [address] [id number] [place] [address] Mar, [facility] [address] [id number] [place] [address] Feb, [facility] [address] [id number] [place] [address] Feb, [facility] [address] [id number] [place] [address] Feb, [facility] [address] [id number] [place] [address] Feb, [facility] [address] [id number] [place] [address] Feb, [facility] [address] [id number] [place] [address] Feb, [facility] [address] [id number] [place] [address] Feb, [facility] [address] [id number] [place] [address] Feb, [facility] [address] [id number] [place] [address] Jan, [facility] [address] [id number] [place] [address] Jan, [facility] [address] [id number] [place] [address] Jan, [facility] [address] [id number] [place] [address] Jan, [facility] [address] [id number] [place] [address] Jan, [facility] [address] [id number] [place] [address] Jan, [facility] [address] [id number] [place] [address] Jan, [facility] [address] [id number] [place] [address] Jan, [facility] [address] [id number] [place] [address] Jan, [facility] [address] [id number] [place] [address] Jan, [facility] [address] [id number] [place] [address] Jan, [facility] [address] [id number] [place] [address] Jan, [facility] [address] [id number] [place] [address] Jan, [facility] [address] [id number] [place] [address] Jan, [facility] [address] [id number] [place] [address] Jan, [facility] [address] [id number] [place] [address] Jan, [facility] [address] [id number] [place] [address] Dec, [facility] [address] [id number] [place] [address] Dec, [facility] [address] [id number] [place] [address] Dec, [facility] [address] [id number] [place] [address] Dec, [facility] [address] [id number] [place] [address] Dec, [facility] [address] [id number] [place] [address] Dec, [facility] [address] [id number] [place] [address] Dec, [facility] [address] [id number] [place] [address] Dec, [facility] [address] [id number] [place] [address] Dec, [facility] [address] [id number] [place] [address] Dec, [facility] [address] [id number] [place] [address] 18 Nov, 2011 [facility] [address] [id number] [place] [address] Nov, [facility] [address] [id number] [place] [address] 24 Oct, 2011 [facility] [address] [id number] [place] [address] Oct, [facility] [address] [id number] [place] [address] Oct, [facility] [address] [facility] [id number] [place] [address] Oct, [facility] [address] [id number] [place] [address] Oct, [facility] [address] [id number] [place] [address] Oct, [facility] [address] [id number] [place] [address] Oct, [facility] [address] [id number] [place] [address] Sep, [facility] [address] [id number] [place] [address] Aug, [facility] [address] [id number] [place] [address] Aug, [facility] [address] [id number] [place] [address] Aug, [facility] [address] [id number] [place] [address] Aug, [facility] [address] [id number] [place] [address] Aug, [facility] [address] [id number] [place] [address] July, [facility] [address] [id number] [place] [address] July, [facility] [address] [id number] [place] [address] July, [facility] [address] [facility] [id number] [facility] [place] [address] Jun, [facility] [address] [id number] [place] [address] Jun, [facility] [address] [id number] [facility] [place] [address] Jun, [facility] [address] [id number] [facility] [place] [address] Jun, [facility] [address] [id number] [facility] [place] [address] May, [facility] [address] [id number] [place] [address] May, [facility] [address] [id number] [place] [address] May, [facility] [address] [id number] [place] [address] May, [facility] [address] [id number] [facility] [place] [address] May, [facility] [address] [id number] [place] [address] May, [facility] [address] [id number] [place] [address] May, [facility] [address] [id number] [place] [address] May, [facility] [address] [id number] [facility] [place] [address] May, [facility] [address] [id number] [place] [address] 05 May, 2011 [facility] [address] [id number] [place] [address] May, [facility] [address] [id number] [place] [address] May, [facility] [address] [id number] [place] [address] 31 Mar, 2011 [facility] [address] [id number] [place] [address] Mar, [facility] [address] [id number] [place] [address] 28 Feb, 2011 [facility] [address] [id number] [place] [address] 20 Feb, 2011 [facility] [address] [id number] [place] [address] 20 Feb, 2011 [facility] [address] [id number] [place] [address] 15 Feb, 2011 [facility] [address] [id number] [place] [address] 13 Feb, 2011 [facility] [address] [id number] [place] [address] Feb, [facility] [address] [id number] [place] [address] Feb, [facility] [address] [id number] [place] [address] Jan, [facility] [address] [id number] [place] [address] Jan, [facility] [address] [id number] [place] [address] Jan, [facility] [address] [id number] [place] [address] 17 Jan, 2011 [facility] [address] [id number] [place] [address] Jan, [facility] [id number] [place] [address] Jan, [facility] [address] [id number] [place] [address] Dec, [facility] [address] [id number] [place] [address] Dec, [facility] [address] [id number] [place] [address] Dec, [facility] [address] [id number] [place] [address] July, [facility] [address] [id number] [place] [address] July, [facility] [address] [id number] [place] [address] Feb, [facility] [address] [id number] [place] [address] Jan, [facility] [address] [id number] [place] [address] Dec, [facility] [address] [id number] [place] [address] Dec, [facility] [address] [id number] [place] [address] 15 Sep, 2009 [facility] [address] [id number] [place] [address] Aug, [facility] [address] [id number] [place] [address] Jun, [facility] [address] [id number] [place] [address] Jun, [facility] [address] [id number] [place] [address] Jan, [facility] [address] [id number] [place] [address] Jan, [facility] [address] [id number] [place] [address] Jan, [facility] [address] [id number] [place] [address] Jan, [facility] [address] [id number] [place] [address] 29 Dec, 2008 [facility] [address] [id number] [place] [address] Dec, [facility] [address] [id number] [place] [address] Dec, [facility] [address] [id number] [place] [address] Nov, [facility] [address] [id number] [place] [address] July, [facility] [address] [id number] [place] [address] May, [facility] [address] [id number] [place] [address] Apr, [facility] [address] [id number] [place] [address] Feb, [facility] [address] [id number] [place] [address] Dec, IMMUNIZATIONS No Known Immunizations SOCIAL HISTORY [...]
--- OUTSIDE RECORDS SUMMARY | 2019-06-22 19:41 | XMS REPORT ---
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 Active 271644264 Problem Diabetes E11.9 Active 081042268 Problem Type 2 diabetes mellitus with complication E11.8 Active 002347164 Problem Post laminectomy syndrome M96.1 Acti ve 34009279 Problem Bipolar 1 disorder F31.9 Active 3 12347148 Problem New daily persistent headache G44.52 Active 913318832 Problem Type 2 diabetes mellitus with hyperglycemia E11.65 Active 98661166 Problem Other chronic pain G89.29 Active 8 1892245 Problem Essential hypertension I10 Active 65798334 Problem Acute bilateral low back pain with right-sided sciatica M54.41 Active 097764869 Problem Bipolar disorder, in partial remission, most rec ent episode manic F31.73 Active 02680735 Problem Seasonal allergic rhinitis due to pollen J30.1 Active 02290027 Problem Hyperlipidemia, unspecified E78.5 Ac tive 71560878 Problem Eye exam normal Z01.00 Active 2438 84141 Problem Extreme poverty Z59.5 Active 1140 3006 Problem Lumbago with sciatica, left side M54.42 Active 153533954 Problem Hypertriglyceridemia E78.1 Active 546059599 Problem Insulin long-term use Z79.4 Active 885362839 Problem Rhinosinusitis J32.9 Active 33688 000 ALLERGIES No Information ENCOUNTERS Encounter Location Date Diagnosis [facility] [id number] [place] [address] May, [facility] [id number] [place] [address] May, [facility] [address] [id number] [place] [address] Apr, [facility] [address] [facility] [id number] [address] [place] [address] Apr, Seasonal allergic rhinitis d ue to pollen J30.1 [facility] [id number] [place] [address] Apr, Essential hypertension I10 and Diabetes E11.9 [facility] [id number] [place] [address] Apr, [facility] [id number] [place] [address] Mar, Bipolar 1 disorder F31.9 ; Borderline in tellectual functioning R41.83 and Extreme poverty Z59.5 [facility] [id number] [place] [address] Mar, Exercise counseling Z71.82 [facility] [id number] [place] [address] Mar, 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 [id number] [place] [address] Mar, [facility] [address] [address] Mar, Exercise counseling Z71.82 [facility] [id number] [place] [address] Feb, Bipolar 1 disorder F31.9 ; Borderline in tellectual functioning R41.83 and Extreme poverty Z59.5 [facility] [address] [address] Feb, [facility] [address] [address] Feb, Type 2 diabetes mellitus with complicati on E11.8 [facility] [address] [facility] [id number] [address] [place] [address] Feb, Acute low back pain without sciatica, unspecified back pain laterality M54.5 [facility] [address] [address] Feb, Bipolar 1 disorder F31.9 ; Borderline in tellectual functioning R41.83 and Extreme poverty Z59.5 [facility] [address] [address] Jan, Bipolar 1 disorder F31.9 ; Borderline in tellectual functioning R41.83 and Extreme poverty Z59.5 [facility] [address] [address] Jan, [facility] [address] [address] Jan, Type 2 diabetes mellitus with complicati on E11.8 [facility] [address] [address] Jan, Type 2 diabetes mellitus with complicati on E11.8 ; Dysuria R30.0 and Diarrhea, unspecified type R19.7 [facility] [address] [address] Jan, Bipolar 1 disorder F31.9 ; Borderline in tellectual functioning R41.83 and Extreme poverty Z59.5 [facility] [facility] [address] [address] Dec, [place] [address] [address] Dec, [place] [address] [address] Dec, [facility] [id number] [place] [address] Dec, [facility] [id number] [place] [address] Dec, Rhinosinusitis J32.9 [facility] [id number] [place] [address] Dec, [facility] [address] [address] Dec, Bipolar 1 disorder F31.9 ; Borderline in tellectual functioning R41.83 and Extreme poverty Z59.5 [place] [facility] [id number] [place] [address] Dec, Type 2 diabetes mellitus with complicati on E11.8 and Type 2 diabetes mellitus with hyperglycemia E11.65 [place] [address] [address] Dec, [place] [address] [address] Dec, Type 2 diabetes mellitus with complicati on E11.8 ; Insulin long-term use Z79.4 ; Hyperglycemia R73.9 and Yeast infection B37.9 [facility] [id number] [place] [address] Dec, Encounter for immunization Z23 [facility] [address] [address] Nov, [place] [address] [address] Nov, Bipolar 1 disorder F31.9 ; Borderline in tellectual functioning R41.83 and Extreme poverty Z59.5 [facility] [id number] [place] [address] Nov, [place] [address] [address] Nov, [place] [address] [address] Nov, Borderline intellectual functioning R41. 83 and Bipolar disorder, in partial remission, most recent episode manic F31.73 [facility] [id number] [place] [address] Nov, Epigastric abdominal pain R1 0.13 [facility] [address] [address] Nov, Bipolar 1 disorder F31.9 ; Borderline in tellectual functioning R41.83 and Extreme poverty Z59.5 [facility] [address] [place] [address] Oct, Dysuria R30.0 and Acute cyst itis without hematuria N30.00 [facility] [id number] [place] [address] Oct, [place] [address] [address] Oct, [place] [address] [address] Oct, Bipolar 1 disorder F31.9 ; Borderline in tellectual functioning R41.83 and Extreme poverty Z59.5 [place] [address] [address] Oct, [place] [address] [address] Oct, [place] [address] [address] Oct, Bipolar disorder, in partial remission, most recent episode manic F31.73 and 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 [address] [address] Sep, [facility] [address] [address] Sep, Bipolar 1 disorder F31.9 ; Borderline in tellectual functioning R41.83 and Extreme poverty Z59.5 [facility] [id number] [place] [address] Sep, [facility] [address] [address] Sep, [facility] [address] [address] Sep, Diabetes E11.9 ; Hyperglycemia R73.9 ; L eliseo term current use of insulin Z79.4 and Diarrhea, unspecified type R19.7 [facility] [id number] [place] [address] Sep, [facility] [address] [address] Sep, Bipolar 1 disorder F31.9 ; Borderline in tellectual functioning R41.83 and Extreme poverty Z59.5 [facility] [address] [address] Sep, [facility] [address] [address] Sep, [facility] [address] [address] Aug, Bipolar 1 disorder F31.9 ; Borderline in tellectual functioning R41.83 and Extreme poverty Z59.5 [place] [facility] [address] [address] Aug, Exercise counseling Z71.82 [place] [address] [address] Aug, Bipolar 1 disorder F31.9 ; Borderline in tellectual functioning R41.83 and Extreme poverty Z59.5 [place] [address] [address] Aug, Borderline intellectual functioning R41. 83 and Bipolar disorder, in partial remission, most recent episode manic F31.73 [place] [address] [address] Aug, Low back pain M54.5 [place] [address] [address] Aug, Borderline intellectual functioning R41. 83 and Bipolar disorder, in partial remission, most recent episode manic F31.73 [place] [address] [address] July, Acute superficial gastritis without hemo rrhage K29.00 ; Low back pain M54.5 and Other chronic pain G89.29 [facility] [facility] [address] [address] July, [place] [address] [address] July, [facility] [address] [address] Jun, [facility] [address] [facility] [id number] [address] [place] [address] Jun, Bilateral lower extremity ed epi R60.0 [facility] [address] [address] Jun, Borderline intellectual functioning R41. 83 and Bipolar disorder, in partial remission, most recent episode manic F31.73 [place] [address] [address] 03 Jun, 2018 [place] [id number] [address] May, Bronchitis J40 [place] [address] [id number] 14 May, 2018 Screening for breast cancer Z12.31 and E ncounter for immunization Z23 [place] [address] [address] 06 May, 2018 Bipolar 1 disorder F31.9 ; Borderline in tellectual functioning R41.83 and Extreme poverty Z59.5 [place] [address] [address] 11 Apr, 2018 [place] [address] [address] 07 Apr, 2018 Bipolar 1 disorder F31.9 ; Borderline in tellectual functioning R41.83 and Extreme poverty Z59.5 [place] [address] [address] 05 Apr, 2018 Irritable bowel syndrome with diarrhea K 58.0 and Dental abscess K04.7 [place] [address] [address] Mar, [place] [address] [address] Mar, [place] [address] [address] Mar, Bipolar 1 disorder F31.9 ; Borderline in tellectual functioning R41.83 and Extreme poverty Z59.5 [place] [address] [address] Mar, Hypertriglyceridemia E78.1 [place] [address] [address] 08 Mar, 2018 Borderline intellectual functioning R41. 83 and Bipolar disorder, in partial remission, most recent episode manic F31.73 [facility] [facility] [address] [id number] Mar, Bipolar 1 disorder F31.9 ; Borderline in tellectual functioning R41.83 and Extreme poverty Z59.5 [place] [address] [id number] Feb, Generalized abdominal pain R10.84 and Di arrhea, unspecified type R19.7 [place] [address] [address] Feb, [place] [address] Feb, Myalgia M79.10 and Nausea R11.[address] [address] Feb, Bipolar 1 disorder F31.9 ; Borderline in tellectual functioning R41.83 and Extreme poverty Z59.5 [place] [address] [address] Feb, [place] [address] [address] Feb, Diabetes E11.9 ; Hyperglycemia R73.9 and Diarrhea, unspecified R19.[address] [address] Feb, Diarrhea, unspecified type R19.7 ; Abdom inal pain R10.9 and Encounter for immunization Z23 [place] [address] [address] Jan, Bipolar 1 disorder F31.9 ; Borderline in tellectual functioning R41.83 and Extreme poverty Z59.[address] [address] Dec, Bipolar 1 disorder F31.9 ; Borderline in tellectual functioning R41.83 and Extreme poverty Z59.5 [place] [address] [address] Nov, [address] [id number] [place] [address] Nov, Hypertriglyceridemia E78.[address] [address] Nov, Bipolar 1 disorder F31.9 ; Borderline in tellectual functioning R41.83 and Extreme poverty Z59.5 [place] [address] [address] Nov, Type 2 diabetes mellitus with complicati on E11.8 [place] [address] [address] Nov, Borderline intellectual functioning R41. 83 and Bipolar disorder, in partial remission, most recent episode manic F31.[address] [address] 12 Nov, 2017 Type 2 diabetes mellitus with complicati on E11.8 [place] [address] [address] Nov, Bipolar 1 disorder F31.9 ; Borderline in tellectual functioning R41.83 and Extreme poverty Z59.[address] [address] 10 Nov, 2017 Type 2 diabetes mellitus with complicati on E11.8 ; Pain of left upper arm M79.622 ; Pain in right upper arm M79.621 ; Hyperglycemia R73.9 ; Lumbago with sciatica, left side M54.42 and Other chronic pain G89.29 [place] [address] [address] Oct, Bipolar 1 disorder F31.9 ; Borderline in tellectual functioning R41.83 and Extreme poverty Z59.[address] [address] Oct, Type 2 diabetes mellitus with hyperglyce didi E11.65 ; 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 and Other acute gastritis without hemorrhage K29.[address] [place] [address] Oct, Bipolar 1 disorder F31.9 ; Borderline in tellectual functioning R41.83 and Extreme poverty Z59.5 [place] [address] [address] Sep, Diarrhea, unspecified R19.7 and Vomiting , unspecified R11.10 [place] [address] [address] Aug, Type 2 diabetes mellitus with complicati on E11.8 [place] [address] [address] Aug, [place] [address] [address] Aug, Bipolar 1 disorder F31.9 ; Borderline in tellectual functioning R41.83 and Extreme poverty Z59.5 [place] [address] [address] Aug, Borderline intellectual functioning R41. 83 and Bipolar disorder, in partial remission, most recent episode manic F31.73 [place] [address] [address] Aug, Bipolar 1 disorder F31.9 [place] [address] [address] Aug, [place] [address] [address] Aug, [place] [address] [address] Aug, Bipolar 1 disorder F31.9 ; Borderline in tellectual functioning R41.83 and Extreme poverty Z59.5 [place] [address] [address] July, Type 2 diabetes mellitus with complicati on E11.8 [place] [address] [address] July, Bipolar 1 disorder F31.9 ; Borderline in tellectual functioning R41.83 and Extreme poverty Z59.5 [place] [address] [address] Jun, Bipolar 1 disorder F31.9 ; Borderline in tellectual functioning R41.83 and Extreme poverty Z59.5 [place] [address] [address] Jun, Bipolar 1 disorder F31.9 ; Borderline in tellectual functioning R41.83 and Extreme poverty Z59.5 [place] [address] [address] Jun, Bipolar 1 disorder F31.9 ; Borderline in tellectual functioning R41.83 and Extreme poverty Z59.5 [place] [address] [address] May, Urinary tract infection without hematuri a, site unspecified N39.0 [place] [address] [address] May, Bipolar 1 disorder F31.9 ; Borderline in tellectual functioning R41.83 and Extreme poverty Z59.5 [place] [address] [address] Apr, Diabetes E11.9 and Breast cancer screeni ng Z12.31 [place] [address] [address] Apr, Bipolar 1 disorder F31.9 and 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 [place] [address] [address] Mar, Bipolar 1 disorder F31.9 ; Borderline in tellectual functioning R41.83 and Extreme poverty Z59.5 [place] [address] [address] Mar, New daily persistent headache G44.52 ; L eg pain 729.5 and History of carpal tunnel release Z98.890 [place] [address] [address] Mar, Hyperlipidemia, unspecified E78.5 [place] [address] [address] Mar, Bipolar 1 disorder F31.9 ; Borderline in tellectual functioning R41.83 and Extreme poverty Z59.5 [place] [address] [address] Feb, Bipolar 1 disorder F31.9 ; Borderline in tellectual functioning R41.83 and Extreme poverty Z59.5 [place] [address] [address] Feb, Diabetes E11.9 [place] [address] [address] Feb, Viral syndrome B34.9 [place] [address] [address] Jan, Other viral agents as the cause of disea ses classified elsewhere B97.89 and Acute upper respiratory infection, unspecified J06.9 [place] [address] [address] Jan, Bipolar 1 disorder F31.9 and 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 [address] [address] Nov, [place] [address] [address] Nov, Bipolar 1 disorder F31.9 ; Borderline in tellectual functioning R41.83 and Extreme poverty Z59.5 [place] [address] [address] Nov, Bipolar 1 disorder F31.9 ; Borderline in tellectual functioning R41.83 and Extreme poverty Z59.5 [place] [address] [address] Oct, Borderline intellectual functioning R41. 83 and Bipolar 1 disorder F31.9 [place] [address] [address] Oct, Bipolar 1 disorder F31.9 ; Borderline in tellectual functioning R41.83 and Extreme poverty Z59.5 [place] [address] [address] Oct, Back pain M54.9 [place] [address] [address] Oct, Borderline intellectual functioning R41. 83 and Type 2 diabetes mellitus with complication E11.8 [place] [address] [address] Sep, Bipolar 1 disorder F31.9 ; Borderline in tellectual functioning R41.83 and Extreme poverty Z59.5 [place] [address] [address] Sep, Borderline intellectual functioning R41. 83 and Bipolar 1 disorder F31.9 [place] [address] [address] Sep, Bipolar 1 disorder F31.9 ; Borderline in tellectual functioning R41.83 and Extreme poverty Z59.5 [facility] [id number] [place] [address] Aug, Diabetes E11.9 ; Hyperlipidemia, unspeci fied E78.5 and Lumbar radiculopathy M54.16 [facility] [id number] [place] [address] 15 Aug, 2016 Bipolar 1 disorder F31.9 ; Borderline in tellectual functioning R41.83 and Extreme poverty Z59.5 [place] [address] [address] Aug, [place] [address] [address] Aug, [place] [address] [address] Aug, [place] [address] [address] July, [place] [address] [address] July, Acute bilateral low back pain with right -sided sciatica M54.41 [place] [address] [address] July, Bipolar 1 disorder F31.9 ; Borderline in tellectual functioning R41.83 and Extreme poverty Z59.5 [place] [id number] [place] [address] July, Back pain M54.9 and Diabetes E11.9 [place] [address] [address] Jun, Bipolar 1 disorder F31.9 ; Borderline in tellectual functioning R41.83 and Extreme poverty Z59.5 [place] [id number] [place] [address] Jun, Bipolar 1 disorder F31.9 ; Borderline in tellectual functioning R41.83 and Extreme poverty Z59.5 [place] [address] [address] 22 May, 2016 Visit for pelvic exam Z01.419 ; Acute va ginitis N76.0 and Diabetes E11.9 [place] [address] [address] 16 May, 2016 Bipolar 1 disorder F31.9 ; Borderline in tellectual functioning R41.83 and Extreme poverty Z59.5 [place] [address] [address] 08 May, 2016 [place] [address] [address] May, [place] [address] [address] 02 May, 2016 Bipolar 1 disorder F31.9 ; Borderline in tellectual functioning R41.83 and Extreme poverty Z59.5 [place] [address] [address] May, Hyperlipidemia, unspecified E78.5 [place] [address] [address] 13 Apr, 2016 Breast cancer screening Z12.39 [place] [address] [address] Mar, [place] [address] [address] Mar, Bipolar disorder, current episode mixed, unspecified F31.60 [place] [address] [address] Mar, Bipolar 1 disorder F31.9 ; Borderline in tellectual functioning R41.83 and Extreme poverty Z59.5 [place] [address] [address] Feb, Acute nasopharyngitis J00 [place] [address] [address] Feb, Dental examination Z01.20 [place] [address] [address] 21 Feb, 2016 Dental cavities K02.9 and Chronic period ontitis, unspecified K05.30 [place] [address] [address] 13 Feb, 2016 Low back pain M54.5 and Extreme poverty Z59.[address] [address] Feb, [address] [address] 05 Feb, 2016 Routine gynecological examination V72.31 ; Breast cancer screening Z12.39 and Herpes simplex type [address] [address] 02 Feb, 2016 Diabetes E11.[address] [address] Feb, Encounter for dental examination and leti aning without abnormal findings Z01.[address] [address] 22 Jan, 2016 Hyperlipidemia, unspecified E78.[address] [address] 22 Jan, 2016 Bipolar 1 disorder F31.9 ; Borderline in tellectual functioning R41.83 and Extreme poverty Z59.5 [place] [address] [address] 18 Jan, 2016 Diabetes E11.9 [place] [address] [address] 17 Jan, 2016 Diabetes E11.9 [place] [address] [address] 14 Dec, 2015 Bipolar 1 disorder F31.9 ; Borderline in tellectual functioning R41.83 and Extreme poverty Z59.[address] [address] 13 Dec, 2015 Bipolar disorder, current episode mixed, unspecified F31.60 and 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 [address] [address] Oct, Dental caries K02.9 [place] [address] [address] Oct, Low back pain M54.5 and Other chronic pa in G89.29 [place] [address] [address] Oct, Bipolar 1 disorder F31.9 ; Borderline in tellectual functioning R41.83 ; Extreme poverty Z59.5 and Non compliance with medical treatment Z91.19 [place] [address] [address] Oct, [place] [address] [address] Oct, [place] [address] [address] Oct, Dental examination Z01.20 [place] [address] [address] Oct, Bipolar 1 disorder F31.9 ; Borderline in tellectual functioning R41.83 ; Extreme poverty Z59.5 and Non compliance with medical treatment Z91.19 [place] [address] [address] Oct, [place] [address] [address] Sep, Type 2 diabetes mellitus with complicati on E11.8 [place] [id number] [place] [address] Sep, Bipolar disorder, current episode mixed, unspecified F31.60 [place] [address] [address] Sep, Bipolar disorder, current episode mixed, unspecified F31.60 [place] [id number] [place] [address] Sep, Bipolar disorder, in partial remission, most recent episode manic F31.73 ; 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 ; Extreme poverty Z59.5 and Non compliance with medical treatment Z91.19 [place] [address] [address] Aug, Bipolar disorder, in partial remission, most recent episode manic F31.73 ; 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 ; Extreme poverty Z59.5 and Non compliance with medical treatment Z91.19 [place] [address] [address] Aug, Bipolar disorder, in partial remission, most recent episode manic F31.73 ; 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 ; Extreme poverty Z59.5 and Non compliance with medical treatment Z91.19 [place] [address] [address] Aug, [place] [address] [address] July, Bipolar disorder, in partial remission, most recent episode manic F31.73 ; 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 ; Extreme poverty Z59.5 and Non compliance with medical treatment Z91.19 [place] [id number] [place] [address] July, Bipolar disorder, current episode mixed, unspecified F31.60 [place] [address] [address] July, Bipolar disorder, in partial remission, most recent episode manic F31.73 ; 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 and Non compliance with medical treatment Z91.19 [place] [address] [address] May, Bipolar disorder, in partial remission, most recent episode manic F31.73 ; 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 and Non compliance with medical treatment Z91.19 [place] [address] [address] May, Bipolar disorder, in partial remission, most recent episode manic F31.73 [place] [address] [address] May, Diabetes E11.9 and Chronic pain G89.29 [place] [address] [address] May, [place] [address] [address] 08 May, 2015 Bipolar disorder, in partial remission, most recent episode manic F31.73 ; Non compliance with medical treatment Z91.19 and 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 [place] [address] [address] 08 May, 2015 Type 2 diabetes mellitus with complicati on E11.8 and Back pain M54.9 [place] [address] [address] May, Bipolar disorder, in partial remission, most recent episode manic F31.73 and 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 [place] [address] [address] Apr, [place] [address] [address] Apr, [place] [address] [address] Apr, [place] [address] [address] Apr, Diabetes E11.9 ; Irritable bowel syndrom e with diarrhea K58.0 and Lumbar radiculopathy M54.16 [place] [address] [address] Apr, Breast screening Z12.39 [place] [address] [address] 02 Apr, 2015 Bipolar disorder, in partial remission, most recent episode manic F31.73 ; Non compliance with medical treatment Z91.19 and 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 [place] [address] [address] Mar, Edema, unspecified type R60.9 and Type 2 diabetes mellitus with complication E11.8 [place] [address] [address] Mar, Bipolar disorder, in partial remission, most recent episode manic F31.73 ; Non compliance with medical treatment Z91.19 ; 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 and Extreme poverty Z59.5 [place] [address] [address] 14 Mar, 2015 Bipolar disorder, current episode mixed, unspecified F31.60 ; 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 ; Extreme poverty Z59.5 and Generalized anxiety disorder F41.1 [place] [address] [address] 12 Mar, 2015 Bipolar disorder, in partial remission, most recent episode manic F31.73 ; 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 and Extreme poverty Z59.5 [place] [address] [address] Feb, Bipolar disorder, in partial remission, most recent episode manic F31.73 ; 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 and Extreme poverty Z59.5 [place] [address] [address] Feb, Bipolar disorder, in partial remission, most recent episode manic F31.73 ; 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 and Extreme poverty Z59.5 [place] [address] [address] Feb, [place] [address] [address] Jan, Type 2 diabetes mellitus with complicati on E11.8 and Petechiae R23.3 [place] [address] [address] Jan, Type 2 diabetes mellitus with complicati on E11.8 ; Edema, unspecified R60.9 ; Petechiae R23.3 and Diabetes E11.9 [place] [address] [address] 17 Jan, 2015 Bipolar disorder, in partial remission, most recent episode manic F31.73 ; 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 and Extreme poverty Z59.5 [place] [address] [address] Jan, Bipolar disorder, in partial remission, most recent episode manic F31.73 ; 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 and Extreme poverty Z59.5 [place] [address] [address] Dec, Bipolar disorder, in partial remission, most recent episode manic F31.73 [place] [address] [address] Dec, Edema, due to unspecified malnutrition t ype, unspecified edema R60.9 and Essential hypertension I10 [place] [address] [address] Dec, Bipolar disorder, in partial remission, most recent episode manic F31.73 [place] [address] [address] Nov, Bipolar I disorder, most recent episode (or current) mixed, unspecified 296.60 [place] [address] [address] Nov, Stress incontinence, female 625.6 ; Back pain 724.5 and Leg pain 729.5 [place] [address] [address] Nov, Generalized anxiety disorder 300.02 and Bipolar II disorder 296.89 [place] [address] [address] Nov, Bipolar I disorder, most recent episode (or current) mixed, unspecified 296.60 [place] [address] [address] Oct, [place] [address] [address] Oct, [place] [address] [address] Oct, [address] [address] Oct, Bipolar I disorder, most recent episode (or current) mixed, unspecified 296.60 [place] [address] [address] Sep, Diabetes 250.00 [facility] [id number] [place] [address] Sep, Bipolar I disorder, most recent episode (or current) mixed, unspecified 296.60 [facility] [address] [address] Sep, [facility] [address] [address] Sep, [facility] [address] [address] Sep, Bipolar I disorder, most recent episode (or current) mixed, unspecified 296.60 [facility] [address] [address] Sep, Bipolar I disorder, most recent episode (or current) mixed, unspecified 296.60 [facility] [address] [address] Sep, [facility] [address] [address] Sep, Anxiety 300.00 ; Diabetes 250.00 and Hyp erlipidemia 272.4 [facility] [address] [address] Aug, [facility] [address] [address] Aug, [facility] [address] [address] Aug, [facility] [address] [address] Aug, Bipolar I disorder, most recent episode (or current) mixed, unspecified 296.60 [facility] [address] [address] Aug, Generalized anxiety disorder 300.02 and Bipolar II disorder 296.89 [facility] [address] [address] July, Bipolar I disorder, most recent episode (or current) mixed, unspecified 296.60 [facility] [id number] [place] [address] July, Cough 786.2 [facility] [id number] [place] [address] July, Bipolar I disorder, most recent episode (or current) mixed, unspecified 296.60 [facility] [id number] [place] [address] Jun, Diabetes 250.00 [facility] [id number] [place] [address] Jun, [facility] [id number] [place] [address] Jun, [facility] [id number] [place] [address] May, [facility] [id number] [place] [address] May, [facility] [id number] [place] [address] May, [facility] [id number] [place] [address] May, [facility] [id number] [place] [address] May, [facility] [id number] [place] [address] May, [facility] [id number] [place] [address] Apr, [facility] [id number] [place] [address] Apr, [facility] [id number] [place] [address] Apr, [facility] [id number] [place] [address] Apr, [facility] [place] [facility] [address] [id number] [place] [address] Apr, [facility] [place] [facility] [address] [id number] [place] [address] Apr, [facility] [place] [facility] [address] [id number] [place] [address] Apr, [facility] [place] [facility] [address] [id number] [place] [address] Apr, [facility] [place] [facility] [address] [id number] [place] [address] Mar, [facility] [place] [facility] [address] [id number] [place] [address] Mar, [facility] [place] [facility] [address] [id number] [place] [address] Mar, [facility] [place] [facility] [address] [id number] [place] [address] Mar, [facility] [place] [facility] [address] [id number] [place] [address] Mar, [facility] [place] [facility] [address] [id number] [place] [address] Mar, [facility] [place] [facility] [address] [id number] [place] [address] Mar, [facility] [place] [facility] [address] [id number] [place] [address] Mar, [facility] [place] [facility] [address] [id number] [place] [address] Feb, [facility] [place] [facility] [address] [id number] [place] [address] Feb, [facility] [place] [facility] [address] [id number] [place] [address] Feb, [facility] [place] [facility] [address] [id number] [place] [address] Feb, [facility] [place] [facility] [address] [id number] [place] [address] Feb, [facility] [place] [facility] [address] [facility] [id number] [place] [address] Feb, [facility] [place] [facility] [address] [id number] [place] [address] Feb, [facility] [place] [facility] [address] [id number] [place] [address] Feb, [facility] [place] [facility] [address] [id number] [place] [address] Feb, [facility] [place] [facility] [address] [id number] [place] [address] Feb, [facility] [place] [facility] [address] [id number] [place] [address] Jan, [facility] [place] [facility] [address] [id number] [place] [address] Jan, [facility] [place] [facility] [address] [id number] [place] [address] Jan, [facility] [place] [facility] [address] [id number] [place] [address] Jan, [facility] [place] [facility] [address] [id number] [place] [address] Jan, [facility] [place] [facility] [address] [id number] [place] [address] Jan, [facility] [place] [facility] [address] [id number] [place] [address] Jan, [facility] [place] [facility] [address] [id number] [place] [address] Jan, [facility] [place] [facility] [address] [id number] [place] [address] Jan, [facility] [place] [facility] [address] [id number] [place] [address] Jan, [facility] [place] [facility] [address] [id number] [place] [address] Jan, [facility] [place] [facility] [address] [id number] [place] [address] Jan, [facility] [place] [facility] [address] [id number] [place] [address] Jan, [facility] [place] [facility] [address] [id number] [place] [address] Jan, [facility] [place] [facility] [address] [id number] [place] [address] Jan, [facility] [place] [facility] [address] [id number] [place] [address] Dec, [facility] [place] [facility] [address] [id number] [place] [address] Dec, [facility] [place] [facility] [address] [id number] [place] [address] Dec, [facility] [place] [facility] [address] [id number] [place] [address] Dec, [facility] [place] [facility] [address] [id number] [place] [address] Dec, [facility] [place] [facility] [address] [id number] [place] [address] Dec, [facility] [place] [facility] [address] [id number] [place] [address] Dec, [facility] [place] [facility] [address] [id number] [place] [address] Dec, [facility] [place] [facility] [address] [id number] [place] [address] Nov, 2013 [facility] [place] [facility] [address] [id number] [place] [address] 25 Nov, 2013 [facility] [place] [facility] [address] [id number] [place] [address] 10 Nov, 2013 [facility] [place] [facility] [address] [id number] [place] [address] 10 Nov, 2013 [facility] [place] [facility] [address] [id number] [place] [address] 08 Sep, 2013 [facility] [place] [facility] [address] [id number] [place] [address] 08 Sep, 2013 [facility] [place] [facility] [address] [id number] [place] [address] 08 Nov, 2013 [facility] [place] [facility] [address] [id number] [place] [address] 08 Nov, 2013 [facility] [place] [facility] [address] [id number] [place] [address] 08 Nov, 2013 [facility] [place] [facility] [address] [id number] [place] [address] 08 Nov, 2013 [facility] [place] [facility] [address] [id number] [place] [address] 04 Nov, 2013 [facility] [place] [facility] [address] [id number] [place] [address] 04 Nov, 2013 [facility] [place] [facility] [address] [id number] [place] [address] Nov, 2013 [facility] [place] [facility] [address] [id number] [place] [address] Nov, 2013 [facility] [place] [facility] [address] [id number] [place] [address] Nov, 2013 [facility] [place] [facility] [address] [id number] [place] [address] Oct, [facility] [place] [facility] [address] [id number] [place] [address] Oct, [facility] [place] [facility] [address] [id number] [place] [address] Oct, [facility] [place] [facility] [address] [id number] [place] [address] Oct, [facility] [place] [facility] [address] [id number] [place] [address] Oct, [facility] [place] [facility] [address] [id number] [place] [address] Oct, [facility] [place] [facility] [address] [id number] [place] [address] Oct, [facility] [place] [facility] [address] [id number] [place] [address] Oct, [facility] [place] [facility] [address] [facility] [id number] [place] [address] Oct, [facility] [place] [facility] [address] [facility] [id number] [place] [address] Oct, [facility] [place] [facility] [address] [facility] [id number] [place] [address] Oct, [facility] [place] [facility] [address] [facility] [id number] [place] [address] Oct, [facility] [place] [facility] [address] [facility] [id number] [place] [address] Oct, [facility] [place] [facility] [address] [facility] [id number] [place] [address] Oct, [facility] [place] [facility] [address] [id number] [place] [address] Sep, [facility] [place] [facility] [address] [facility] [id number] [place] [address] Sep, [facility] [place] [facility] [address] [facility] [id number] [place] [address] Sep, [facility] [place] [facility] [address] [facility] [id number] [place] [address] Sep, 2013 [facility] [place] [facility] [address] [id number] [place] [address] Sep, 2013 [facility] [place] [facility] [address] [facility] [id number] [place] [address] Sep, 2013 [facility] [place] [facility] [address] [facility] [id number] [place] [address] Sep, [facility] [place] [facility] [address] [facility] [id number] [place] [address] Sep, [facility] [place] [facility] [address] [facility] [id number] [place] [address] Aug, [facility] [place] [facility] [address] [facility] [id number] [place] [address] Aug, [facility] [place] [facility] [address] [id number] [place] [address] Aug, [facility] [place] [facility] [address] [id number] [place] [address] Aug, [facility] [place] [facility] [address] [id number] [place] [address] Aug, [facility] [place] [facility] [address] [id number] [place] [address] Aug, [facility] [place] [facility] [address] [id number] [place] [address] Aug, [facility] [place] [facility] [address] [id number] [place] [address] Aug, [facility] [place] [facility] [address] [id number] [place] [address] July, [facility] [place] [facility] [address] [id number] [place] [address] July, [facility] [place] [facility] [address] [id number] [place] [address] July, [facility] [place] [facility] [address] [id number] [place] [address] July, [facility] [place] [facility] [address] [id number] [place] [address] July, [facility] [place] [facility] [address] [id number] [place] [address] July, [facility] [place] [facility] [address] [id number] [place] [address] July, [facility] [place] [facility] [address] [id number] [place] [address] July, [facility] [place] [facility] [address] [id number] [place] [address] Jun, [facility] [place] [facility] [address] [id number] [place] [address] Jun, [facility] [place] [facility] [address] [facility] [id number] [place] [address] Jun, [facility] [place] [facility] [address] [id number] [place] [address] Jun, [facility] [address] [id number] [place] [address] Jun, [facility] [address] [id number] [place] [address] Jun, [facility] [address] [id number] [place] [address] Jun, [facility] [address] [id number] [place] [address] Jun, [facility] [address] [id number] [place] [address] Jun, [facility] [address] [id number] [place] [address] Jun, [facility] [address] [id number] [place] [address] Jun, [facility] [address] [id number] [place] [address] Jun, [facility] [address] [id number] [place] [address] May, [facility] [address] [id number] [place] [address] May, [facility] [address] [id number] [place] [address] May, [facility] [address] [facility] [id number] [place] [address] May, [facility] [address] [id number] [place] [address] May, [facility] [address] [id number] [place] [address] May, [facility] [address] [id number] [place] [address] May, [facility] [place] [address] [facility] [id number] [place] [address] May, [facility] [place] [address] [facility] [id number] [place] [address] May, [facility] [place] [address] [facility] [id number] [place] [address] May, [facility] [place] [address] [facility] [id number] [place] [address] May, [facility] [place] [address] [facility] [id number] [place] [address] May, [facility] [place] [address] [id number] [place] [address] May, [facility] [place] [address] [id number] [place] [address] May, [facility] [place] [address] [id number] [place] [address] Apr, [facility] [address] [facility] [id number] [place] [address] Apr, [facility] [place] [address] [id number] [place] [address] Apr, [facility] [place] [address] [id number] [place] [address] Apr, [facility] [address] [id number] [place] [address] Apr, [facility] [place] [address] [facility] [id number] [place] [address] Apr, [facility] [address] [id number] [place] [address] Mar, [facility] [address] [facility] [id number] [place] [address] Mar, [facility] [address] [id number] [place] [address] Mar, [facility] [address] [id number] [place] [address] Mar, [facility] [address] [id number] [place] [address] Mar, [facility] [address] [id number] [place] [address] Mar, [facility] [address] [id number] [place] [address] Mar, [facility] [address] [id number] [place] [address] Mar, [facility] [address] [id number] [place] [address] Mar, [facility] [address] [id number] [place] [address] Mar, [facility] [address] [id number] [place] [address] Mar, [facility] [address] [id number] [place] [address] Mar, [facility] [address] [id number] [place] [address] Mar, [facility] [address] [id number] [place] [address] Mar, [facility] [address] [id number] [place] [address] Feb, [facility] [address] [id number] [place] [address] Feb, [facility] [address] [id number] [place] [address] Feb, [facility] [address] [id number] [place] [address] Feb, [facility] [address] [id number] [place] [address] Feb, [facility] [address] [id number] [place] [address] Feb, [facility] [address] [id number] [place] [address] Feb, 2012 [facility] [address] [id number] [place] [address] Feb, 2012 [facility] [address] [id number] [place] [address] Feb, 2012 [facility] [address] [id number] [place] [address] Feb, 2012 [facility] [address] [id number] [place] [address] Feb, 2012 [facility] [address] [id number] [place] [address] Feb, 2012 [facility] [address] [id number] [place] [address] Feb, 2012 [facility] [id number] [place] [address] Feb, 2012 [facility] [address] [id number] [place] [address] Feb, 2012 [facility] [address] [id number] [place] [address] Feb, 2012 [facility] [address] [id number] [place] [address] 24 Dec, 2012 [facility] [address] [id number] [place] [address] 24 Dec, 2012 [facility] [address] [id number] [place] [address] Dec, 2012 [facility] [address] [id number] [place] [address] Dec, 2012 [facility] [address] [id number] [place] [address] Dec, 2012 [facility] [address] [id number] [place] [address] Dec, 2012 [facility] [address] [id number] [place] [address] 14 Dec, 2012 [facility] [address] [facility] [id number] [place] [address] 14 Dec, 2012 [facility] [address] [facility] [id number] [place] [address] 10 Dec, 2012 [facility] [address] [id number] [place] [address] 10 Dec, 2012 [facility] [address] [facility] [id number] [place] [address] 10 Dec, 2012 [facility] [address] [facility] [id number] [place] [address] 10 Dec, 2012 [facility] [address] [id number] [place] [address] 03 Dec, 2012 [facility] [address] [id number] [place] [address] 25 Nov, 2012 [facility] [address] [id number] [place] [address] 20 Nov, 2012 [facility] [address] [facility] [id number] [place] [address] 18 Nov, 2012 [facility] [address] [id number] [place] [address] 16 Nov, 2012 [facility] [address] [id number] [place] [address] 12 Nov, 2012 [facility] [address] [id number] [place] [address] 11 Nov, 2012 [facility] [address] [facility] [id number] [place] [address] 05 Nov, 2012 [facility] [address] [id number] [place] [address] 15 Oct, 2012 [facility] [address] [facility] [id number] [place] [address] Oct, [facility] [address] [id number] [place] [address] 24 Sep, 2012 [facility] [address] [id number] [place] [address] 23 Sep, 2012 [facility] [address] [id number] [place] [address] Sep, [facility] [address] [facility] [id number] [place] [address] 17 Sep, 2012 [facility] [address] [id number] [place] [address] 15 Sep, 2012 [facility] [address] [facility] [id number] [place] [address] Sep, [facility] [address] [facility] [id number] [place] [address] Sep, [facility] [address] [id number] [place] [address] Aug, [facility] [address] [id number] [place] [address] Aug, [facility] [address] [id number] [place] [address] 16 Aug, 2012 [facility] [address] [facility] [id number] [place] [address] Aug, [facility] [address] [id number] [place] [address] Aug, [facility] [address] [id number] [place] [address] Aug, [facility] [address] [id number] [place] [address] Aug, [facility] [address] [facility] [id number] [place] [address] Aug, [facility] [address] [id number] [place] [address] July, [facility] [address] [facility] [id number] [place] [address] July, [facility] [address] [id number] [place] [address] July, [facility] [address] [facility] [id number] [place] [id number] July, [facility] [address] [id number] [place] [address] July, [facility] [address] [id number] [place] [address] Jun, [facility] [address] [id number] [place] [address] May, [facility] [address] [id number] [place] [address] May, [facility] [address] [id number] [place] [address] May, [facility] [address] [id number] [place] [address] Apr, [facility] [address] [id number] [place] [address] Apr, [facility] [address] [id number] [place] [address] Apr, [facility] [address] [id number] [place] [address] Mar, [facility] [address] [id number] [place] [address] Mar, [facility] [address] [id number] [place] [address] Mar, [facility] [address] [id number] [place] [address] Mar, [facility] [address] [id number] [place] [address] Mar, [facility] [address] [id number] [place] [address] Mar, [facility] [address] [id number] [place] [address] Mar, [facility] [address] [id number] [place] [address] Feb, [facility] [address] [id number] [place] [address] Feb, [facility] [address] [id number] [place] [address] Feb, [facility] [address] [id number] [place] [address] Feb, [facility] [address] [id number] [place] [address] Feb, [facility] [address] [id number] [place] [address] Feb, [facility] [address] [id number] [place] [address] Feb, [facility] [address] [id number] [place] [address] Feb, [facility] [address] [id number] [place] [address] Jan, [facility] [address] [id number] [place] [address] Jan, [facility] [address] [id number] [place] [address] Jan, [facility] [address] [id number] [place] [address] Jan, [facility] [address] [id number] [place] [address] Jan, [facility] [address] [id number] [place] [address] Jan, [facility] [address] [id number] [place] [address] Jan, [facility] [address] [id number] [place] [address] Jan, [facility] [address] [id number] [place] [address] Jan, [facility] [address] [id number] [place] [address] Jan, [facility] [address] [id number] [place] [address] Jan, [facility] [address] [id number] [place] [address] Jan, [facility] [address] [id number] [place] [address] Jan, [facility] [address] [id number] [place] [address] Jan, [facility] [address] [id number] [place] [address] Jan, [facility] [address] [id number] [place] [address] Jan, [facility] [address] [id number] [place] [address] Dec, [facility] [address] [id number] [place] [address] Dec, [facility] [address] [id number] [place] [address] Dec, [facility] [address] [id number] [place] [address] Dec, [facility] [address] [id number] [place] [address] Dec, [facility] [address] [id number] [place] [address] Dec, [facility] [address] [id number] [place] [address] Dec, [facility] [address] [id number] [place] [address] Dec, [facility] [address] [id number] [place] [address] Dec, [facility] [address] [id number] [place] [address] Dec, [facility] [address] [id number] [place] [address] 18 Nov, 2011 [facility] [address] [id number] [place] [address] Nov, [facility] [address] [id number] [place] [address] 24 Oct, 2011 [facility] [address] [id number] [place] [address] Oct, [facility] [address] [facility] [id number] [place] [address] Oct, [facility] [address] [id number] [place] [address] Oct, [facility] [address] [id number] [place] [address] Oct, [facility] [address] [id number] [place] [address] Oct, [facility] [address] [id number] [place] [address] Oct, [facility] [address] [id number] [place] [address] Sep, [facility] [address] [id number] [place] [address] Aug, [facility] [address] [id number] [place] [address] Aug, [facility] [address] [id number] [place] [address] Aug, [facility] [address] [id number] [place] [address] Aug, [facility] [address] [id number] [place] [address] Aug, [facility] [address] [id number] [place] [address] July, [facility] [address] [id number] [place] [address] July, [facility] [address] [facility] [id number] [place] [address] July, [facility] [address] [id number] [place] [address] Jun, [facility] [address] [id number] [place] [address] Jun, [facility] [address] [id number] [place] [address] Jun, [facility] [address] [id number] [place] [address] Jun, [facility] [address] [id number] [place] [address] 30 May, 2011 [facility] [address] [id number] [place] [address] 30 May, 2011 [facility] [address] [id number] [place] [address] May, [facility] [address] [id number] [place] [address] May, [facility] [address] [id number] [place] [address] May, [facility] [address] [id number] [place] [address] May, [facility] [address] [id number] [place] [address] May, [facility] [address] [id number] [place] [address] May, [facility] [address] [id number] [place] [address] 08 May, 2011 [facility] [address] [id number] [place] [address] 05 May, 2011 [facility] [address] [id number] [place] [address] May, [facility] [address] [id number] [place] [address] May, [facility] [address] [id number] [place] [address] Mar, [facility] [address] [id number] [place] [address] Mar, [facility] [address] [id number] [place] [address] 28 Feb, 2011 [facility] [address] [id number] [place] [address] Feb, [facility] [address] [id number] [place] [address] Feb, [facility] [address] [id number] [place] [address] 15 Feb, 2011 [facility] [address] [id number] [place] [address] Feb, [facility] [address] [id number] [place] [address] Feb, [facility] [address] [id number] [place] [address] Feb, [facility] [address] [id number] [place] [address] Jan, [facility] [address] [id number] [place] [address] Jan, [facility] [address] [id number] [place] [address] Jan, [facility] [address] [id number] [place] [address] 17 Jan, 2011 [facility] [address] [id number] [place] [address] 07 Jan, 2011 [facility] [address] [id number] [place] [address] Jan, [facility] [address] [id number] [place] [address] Dec, [facility] [address] [id number] [place] [address] 27 Dec, 2010 [facility] [address] [id number] [place] [address] Dec, [facility] [address] [id number] [place] [address] July, [facility] [address] [id number] [place] [address] July, [facility] [address] [id number] [place] [address] Feb, [facility] [address] [id number] [place] [address] Jan, [facility] [address] [id number] [place] [address] Dec, [facility] [address] [id number] [place] [address] Dec, [facility] [address] [id number] [place] [address] Sep, [facility] [address] [id number] [place] [address] Aug, [facility] [address] [id number] [place] [address] Jun, [facility] [address] [id number] [place] [address] Jun, [facility] [address] [id number] [place] [address] Jan, [facility] [address] [id number] [place] [address] Jan, [facility] [address] [id number] [place] [address] 05 Jan, 2009 [facility] [address] [id number] [place] [address] Jan, [facility] [address] [id number] [place] [address] Dec, [facility] [address] [id number] [place] [address] Dec, [facility] [address] [id number] [place] [address] Dec, [facility] [address] [id number] [place] [address] Nov[facility] [address] [id number] [place] [address] July, [facility] [address] [id number] [place] [address] May, [facility] [address] [id number] [place] [address] Apr, [facility] [address] [id number] [place] [address] Feb, [facility] [address] [id number] [place] [address] Dec, IMMUNIZATIONS No Known Immunizations SOCIAL HISTORY [...]
--- OUTSIDE RECORDS SUMMARY | 2019-06-22 19:41 | XMS REPORT ---
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 Active 376825404 Problem Diabetes E11.9 Active 901477172 Problem Type 2 diabetes mellitus with complication E11.8 Active 800298548 Problem Post laminectomy syndrome M96.1 Acti ve 04329823 Problem Bipolar 1 disorder F31.9 Active 3 01125095 Problem New daily persistent headache G44.52 Active 421472289 Problem Type 2 diabetes mellitus with hyperglycemia E11.65 Active 75231143 Problem Other chronic pain G89.29 Active 8 8260627 Problem Essential hypertension I10 Active 88620441 Problem Acute bilateral low back pain with right-sided sciatica M54.41 Active 451650247 Problem Bipolar disorder, in partial remission, most rec ent episode manic F31.73 Active 88857675 Problem Seasonal allergic rhinitis due to pollen J30.1 Active 03767508 Problem Hyperlipidemia, unspecified E78.5 Ac tive 99303452 Problem Eye exam normal Z01.00 Active 2438 41471 Problem Extreme poverty Z59.5 Active 1140 3006 Problem Lumbago with sciatica, left side M54.42 Active 812744118 Problem Hypertriglyceridemia E78.1 Active 079417368 Problem Insulin long-term use Z79.4 Active 637976620 Problem Rhinosinusitis J32.9 Active 11977 000 ALLERGIES No Information ENCOUNTERS Encounter Location Date Diagnosis [facility] [id number] [place] [address] May, [facility] [id number] [place] [address] May, [facility] [address] [id number] [place] [address] Apr, [facility] [address] [facility] [id number] [address] [place] [address] Apr, Seasonal allergic rhinitis d ue to pollen J30.1 [facility] [id number] [place] [address] Apr, Essential hypertension I10 and Diabetes E11.9 [facility] [id number] [place] [address] Apr, [facility] [id number] [place] [address] Mar, Bipolar 1 disorder F31.9 ; Borderline in tellectual functioning R41.83 and Extreme poverty Z59.5 [facility] [id number] [place] [address] Mar, Exercise counseling Z71.82 [place] [facility] [id number] [place] [address] Mar, [facility] [id number] [place] [address] Mar, Bipolar disorder, in partial remission, most recent episode manic F31.73 and 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 [facility] [id number] [place] [address] Mar, [facility] [address] [address] Mar, Exercise counseling Z71.82 [facility] [id number] [place] [address] Feb, Bipolar 1 disorder F31.9 ; Borderline in tellectual functioning R41.83 and Extreme poverty Z59.5 [facility] [address] [address] Feb, [facility] [address] [address] Feb, Type 2 diabetes mellitus with complicati on E11.8 [facility] [address] [facility] [id number] [address] [place] [address] Feb, Acute low back pain without sciatica, unspecified back pain laterality M54.5 [facility] [address] [address] Feb, Bipolar 1 disorder F31.9 ; Borderline in tellectual functioning R41.83 and Extreme poverty Z59.5 [facility] [address] [address] Jan, Bipolar 1 disorder F31.9 ; Borderline in tellectual functioning R41.83 and Extreme poverty Z59.5 [facility] [address] [address] Jan, [facility] [address] [address] Jan, Type 2 diabetes mellitus with complicati on E11.8 [facility] [address] [address] Jan, Type 2 diabetes mellitus with complicati on E11.8 ; Dysuria R30.0 and Diarrhea, unspecified type R19.7 [facility] [address] [address] Jan, Bipolar 1 disorder F31.9 ; Borderline in tellectual functioning R41.83 and Extreme poverty Z59.5 [place] [address] [address] Dec, [place] [address] [address] Dec, [place] [address] [address] Dec, [facility] [id number] [place] [address] Dec, [facility] [id number] [place] [address] Dec, Rhinosinusitis J32.9 [facility] [id number] [place] [address] Dec, [facility] [address] [address] Dec, Bipolar 1 disorder F31.9 ; Borderline in tellectual functioning R41.83 and Extreme poverty Z59.5 [place] [id number] [place] [address] Dec, Type 2 diabetes mellitus with complicati on E11.8 and Type 2 diabetes mellitus with hyperglycemia E11.65 [place] [address] [address] Dec, [place] [address] [address] Dec, Type 2 diabetes mellitus with complicati on E11.8 ; Insulin long-term use Z79.4 ; Hyperglycemia R73.9 and Yeast infection B37.9 [place] [id number] [place] [address] Dec, Encounter for immunization Z23 [place] [address] [address] Nov, [facility] [facility] [address] [address] Nov, Bipolar 1 disorder F31.9 ; Borderline in tellectual functioning R41.83 and Extreme poverty Z59.5 [facility] [facility] [id number] [place] [address] Nov, [place] [address] [address] Nov, [place] [address] [address] Nov, Borderline intellectual functioning R41. 83 and Bipolar disorder, in partial remission, most recent episode manic F31.73 [facility] [id number] [place] [address] Nov, Epigastric abdominal pain R1 0.13 [facility] [address] [address] Nov, Bipolar 1 disorder F31.9 ; Borderline in tellectual functioning R41.83 and Extreme poverty Z59.5 [facility] [address] [place] [address] Oct, Dysuria R30.0 and Acute cyst itis without hematuria N30.00 [facility] [id number] [place] [address] Oct, [place] [address] [address] Oct, [place] [address] [address] Oct, Bipolar 1 disorder F31.9 ; Borderline in tellectual functioning R41.83 and Extreme poverty Z59.5 [place] [facility] [address] [address] Oct, [place] [address] [address] Oct, [place] [address] [address] Oct, Bipolar disorder, in partial remission, most recent episode manic F31.73 and 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 [place] [address] [address] Oct, Bipolar 1 disorder F31.9 ; Borderline in tellectual functioning R41.83 and Extreme poverty Z59.5 [place] [address] [address] Oct, Diarrhea, unspecified type R19.7 [facility] [address] [facility] [id number] [place] [id number] Sep, Dental examination Z01.20 and Dental car ies K02.9 [facility] [address] [facility] [id number] [address] [place] [address] Sep, Mouth pain K13.79 [facility] [address] [address] Sep, [facility] [address] [address] Sep, Bipolar 1 disorder F31.9 ; Borderline in tellectual functioning R41.83 and Extreme poverty Z59.5 [facility] [id number] [place] [address] Sep, [facility] [address] [address] Sep, [facility] [address] [address] Sep, Diabetes E11.9 ; Hyperglycemia R73.9 ; L eliseo term current use of insulin Z79.4 and Diarrhea, unspecified type R19.7 [facility] [id number] [place] [address] Sep, [facility] [address] [address] Sep, Bipolar 1 disorder F31.9 ; Borderline in tellectual functioning R41.83 and Extreme poverty Z59.5 [facility] [address] [address] Sep, [facility] [address] [address] Sep, [facility] [address] [address] Aug, Bipolar 1 disorder F31.9 ; Borderline in tellectual functioning R41.83 and Extreme poverty Z59.5 [facility] [facility] [address] [address] Aug, Exercise counseling Z71.82 [place] [address] [address] Aug, Bipolar 1 disorder F31.9 ; Borderline in tellectual functioning R41.83 and Extreme poverty Z59.5 [place] [address] [address] Aug, Borderline intellectual functioning R41. 83 and Bipolar disorder, in partial remission, most recent episode manic F31.73 [place] [address] [address] Aug, Low back pain M54.5 [facility] [facility] [address] [address] Aug, Borderline intellectual functioning R41. 83 and Bipolar disorder, in partial remission, most recent episode manic F31.73 [facility] [facility] [address] [address] July, Acute superficial gastritis without hemo rrhage K29.00 ; Low back pain M54.5 and Other chronic pain G89.29 [place] [address] [address] July, [place] [address] [address] July, [facility] [address] [address] Jun, [facility] [address] [facility] [id number] [address] [place] [address] Jun, Bilateral lower extremity ed epi R60.0 [facility] [address] [address] Jun, Borderline intellectual functioning R41. 83 and Bipolar disorder, in partial remission, most recent episode manic F31.73 [place] [address] [address] 03 Jun, 2018 [place] [address] [address] May, Bronchitis J40 [place] [address] [id number] 14 May, 2018 Screening for breast cancer Z12.31 and E ncounter for immunization Z23 [place] [address] [address] 06 May, 2018 Bipolar 1 disorder F31.9 ; Borderline in tellectual functioning R41.83 and Extreme poverty Z59.5 [place] [address] [address] 11 Apr, 2018 [place] [address] [address] 07 Apr, 2018 Bipolar 1 disorder F31.9 ; Borderline in tellectual functioning R41.83 and Extreme poverty Z59.5 [place] [address] [address] 05 Apr, 2018 Irritable bowel syndrome with diarrhea K 58.0 and Dental abscess K04.7 [place] [address] [address] Mar, [place] [address] [address] Mar, [place] [address] [address] Mar, Bipolar 1 disorder F31.9 ; Borderline in tellectual functioning R41.83 and Extreme poverty Z59.5 [place] [address] [address] Mar, Hypertriglyceridemia E78.1 [place] [address] [address] 08 Mar, 2018 Borderline intellectual functioning R41. 83 and Bipolar disorder, in partial remission, most recent episode manic F31.73 [place] [address] [id number] Mar, Bipolar 1 disorder F31.9 ; Borderline in tellectual functioning R41.83 and Extreme poverty Z59.5 [place] [address] [id number] Feb, Generalized abdominal pain R10.84 and Di arrhea, unspecified type R19.7 [place] [address] [address] Feb, [address] [address] [address] Feb, Myalgia M79.10 and Nausea R11.[address] [address] Feb, Bipolar 1 disorder F31.9 ; Borderline in tellectual functioning R41.83 and Extreme poverty Z59.5 [place] [address] [address] Feb, [place] [address] [address] Feb, Diabetes E11.9 ; Hyperglycemia R73.9 and Diarrhea, unspecified R19.[address] [address] Feb, Diarrhea, unspecified type R19.7 ; Abdom inal pain R10.9 and Encounter for immunization Z23 [place] [address] [address] Jan, Bipolar 1 disorder F31.9 ; Borderline in tellectual functioning R41.83 and Extreme poverty Z59.[address] [address] Dec, Bipolar 1 disorder F31.9 ; Borderline in tellectual functioning R41.83 and Extreme poverty Z59.5 [place] [address] [address] Nov, [address] [id number] [place] [address] Nov, Hypertriglyceridemia E78.[address] [address] Nov, Bipolar 1 disorder F31.9 ; Borderline in tellectual functioning R41.83 and Extreme poverty Z59.5 [place] [address] [address] Nov, Type 2 diabetes mellitus with complicati on E11.8 [place] [address] [address] Nov, Borderline intellectual functioning R41. 83 and Bipolar disorder, in partial remission, most recent episode manic F31.[address] [address] 12 Nov, 2017 Type 2 diabetes mellitus with complicati on E11.8 [place] [address] [address] Nov, Bipolar 1 disorder F31.9 ; Borderline in tellectual functioning R41.83 and Extreme poverty Z59.[address] [address] 10 Nov, 2017 Type 2 diabetes mellitus with complicati on E11.8 ; Pain of left upper arm M79.622 ; Pain in right upper arm M79.621 ; Hyperglycemia R73.9 ; Lumbago with sciatica, left side M54.42 and Other chronic pain G89.29 [place] [address] [address] Oct, Bipolar 1 disorder F31.9 ; Borderline in tellectual functioning R41.83 and Extreme poverty Z59.[address] [address] Oct, Type 2 diabetes mellitus with hyperglyce didi E11.65 ; 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 and Other acute gastritis without hemorrhage K29.[address] [place] [address] Oct, Bipolar 1 disorder F31.9 ; Borderline in tellectual functioning R41.83 and Extreme poverty Z59.5 [place] [address] [address] Sep, Diarrhea, unspecified R19.7 and Vomiting , unspecified R11.10 [place] [address] [address] Aug, Type 2 diabetes mellitus with complicati on E11.8 [place] [address] [address] Aug, [place] [address] [address] Aug, Bipolar 1 disorder F31.9 ; Borderline in tellectual functioning R41.83 and Extreme poverty Z59.5 [place] [address] [address] Aug, Borderline intellectual functioning R41. 83 and Bipolar disorder, in partial remission, most recent episode manic F31.73 [place] [address] [address] Aug, Bipolar 1 disorder F31.9 [place] [address] [address] Aug, [place] [address] [address] Aug, [place] [address] [address] Aug, Bipolar 1 disorder F31.9 ; Borderline in tellectual functioning R41.83 and Extreme poverty Z59.5 [place] [address] [address] July, Type 2 diabetes mellitus with complicati on E11.8 [place] [address] [address] July, Bipolar 1 disorder F31.9 ; Borderline in tellectual functioning R41.83 and Extreme poverty Z59.5 [place] [address] [address] Jun, Bipolar 1 disorder F31.9 ; Borderline in tellectual functioning R41.83 and Extreme poverty Z59.5 [place] [address] [address] Jun, Bipolar 1 disorder F31.9 ; Borderline in tellectual functioning R41.83 and Extreme poverty Z59.5 [place] [address] [address] Jun, Bipolar 1 disorder F31.9 ; Borderline in tellectual functioning R41.83 and Extreme poverty Z59.5 [place] [address] [address] May, Urinary tract infection without hematuri a, site unspecified N39.0 [place] [address] [address] May, Bipolar 1 disorder F31.9 ; Borderline in tellectual functioning R41.83 and Extreme poverty Z59.5 [place] [address] [address] Apr, Diabetes E11.9 and Breast cancer screeni ng Z12.31 [place] [address] [address] Apr, Bipolar 1 disorder F31.9 and 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 [place] [address] [address] Mar, Bipolar 1 disorder F31.9 ; Borderline in tellectual functioning R41.83 and Extreme poverty Z59.5 [place] [address] [address] Mar, New daily persistent headache G44.52 ; L eg pain 729.5 and History of carpal tunnel release Z98.890 [place] [address] [address] Mar, Hyperlipidemia, unspecified E78.5 [place] [address] [address] Mar, Bipolar 1 disorder F31.9 ; Borderline in tellectual functioning R41.83 and Extreme poverty Z59.5 [place] [address] [address] Feb, Bipolar 1 disorder F31.9 ; Borderline in tellectual functioning R41.83 and Extreme poverty Z59.5 [place] [address] [address] Feb, Diabetes E11.9 [place] [address] [address] Feb, Viral syndrome B34.9 [place] [address] [address] Jan, Other viral agents as the cause of disea ses classified elsewhere B97.89 and Acute upper respiratory infection, unspecified J06.9 [place] [address] [address] Jan, Bipolar 1 disorder F31.9 and 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 [place] [address] [address] Jan, Bipolar 1 disorder F31.9 ; Borderline in tellectual functioning R41.83 and Extreme poverty Z59.5 [place] [address] [address] Dec, Diabetes E11.9 [place] [address] [address] Dec, Diabetes E11.9 and Encounter for immuniz ation Z23 [place] [address] [address] Dec, Bipolar 1 disorder F31.9 ; Borderline in tellectual functioning R41.83 and Extreme poverty Z59.5 [place] [address] [address] Dec, Back pain M54.9 [facility] [address] [address] Nov, [place] [address] [address] Nov, Bipolar 1 disorder F31.9 ; Borderline in tellectual functioning R41.83 and Extreme poverty Z59.5 [place] [address] [address] Nov, Bipolar 1 disorder F31.9 ; Borderline in tellectual functioning R41.83 and Extreme poverty Z59.5 [place] [address] [address] Oct, Borderline intellectual functioning R41. 83 and Bipolar 1 disorder F31.9 [place] [address] [address] Oct, Bipolar 1 disorder F31.9 ; Borderline in tellectual functioning R41.83 and Extreme poverty Z59.5 [place] [address] [address] Oct, Back pain M54.9 [place] [address] [address] Oct, Borderline intellectual functioning R41. 83 and Type 2 diabetes mellitus with complication E11.8 [place] [address] [address] Sep, Bipolar 1 disorder F31.9 ; Borderline in tellectual functioning R41.83 and Extreme poverty Z59.5 [place] [address] [address] Sep, Borderline intellectual functioning R41. 83 and Bipolar 1 disorder F31.9 [place] [address] [address] Sep, Bipolar 1 disorder F31.9 ; Borderline in tellectual functioning R41.83 and Extreme poverty Z59.5 [facility] [id number] [place] [address] Aug, Diabetes E11.9 ; Hyperlipidemia, unspeci fied E78.5 and Lumbar radiculopathy M54.16 [facility] [id number] [place] [address] 15 Aug, 2016 Bipolar 1 disorder F31.9 ; Borderline in tellectual functioning R41.83 and Extreme poverty Z59.5 [place] [address] [address] Aug, [place] [address] [address] Aug, [place] [address] [address] Aug, [place] [address] [address] July, [place] [address] [address] July, Acute bilateral low back pain with right -sided sciatica M54.41 [place] [address] [address] July, Bipolar 1 disorder F31.9 ; Borderline in tellectual functioning R41.83 and Extreme poverty Z59.5 [place] [address] [place] [address] July, Back pain M54.9 and Diabetes E11.9 [place] [address] [address] Jun, Bipolar 1 disorder F31.9 ; Borderline in tellectual functioning R41.83 and Extreme poverty Z59.5 [place] [address] [place] [address] Jun, Bipolar 1 disorder F31.9 ; Borderline in tellectual functioning R41.83 and Extreme poverty Z59.5 [place] [address] [address] 22 May, 2016 Visit for pelvic exam Z01.419 ; Acute va ginitis N76.0 and Diabetes E11.9 [place] [address] [address] 16 May, 2016 Bipolar 1 disorder F31.9 ; Borderline in tellectual functioning R41.83 and Extreme poverty Z59.5 [place] [address] [address] 08 May, 2016 [place] [address] [address] May, [place] [address] [address] 02 May, 2016 Bipolar 1 disorder F31.9 ; Borderline in tellectual functioning R41.83 and Extreme poverty Z59.5 [place] [address] [address] May, Hyperlipidemia, unspecified E78.5 [place] [address] [address] 13 Apr, 2016 Breast cancer screening Z12.39 [place] [address] [address] Mar, [place] [address] [address] Mar, Bipolar disorder, current episode mixed, unspecified F31.60 [place] [address] [address] Mar, Bipolar 1 disorder F31.9 ; Borderline in tellectual functioning R41.83 and Extreme poverty Z59.5 [place] [address] [address] Feb, Acute nasopharyngitis J00 [place] [address] [address] Feb, Dental examination Z01.20 [place] [address] [address] 21 Feb, 2016 Dental cavities K02.9 and Chronic period ontitis, unspecified K05.30 [place] [address] [address] 13 Feb, 2016 Low back pain M54.5 and Extreme poverty Z59.[address] [address] Feb, [address] [address] 05 Feb, 2016 Routine gynecological examination V72.31 ; Breast cancer screening Z12.39 and Herpes simplex type [address] [address] 02 Feb, 2016 Diabetes E11.[address] [address] Feb, Encounter for dental examination and leti aning without abnormal findings Z01.[address] [address] 22 Jan, 2016 Hyperlipidemia, unspecified E78.[address] [address] 22 Jan, 2016 Bipolar 1 disorder F31.9 ; Borderline in tellectual functioning R41.83 and Extreme poverty Z59.5 [place] [address] [address] 18 Jan, 2016 Diabetes E11.9 [place] [address] [address] 17 Jan, 2016 Diabetes E11.9 [place] [address] [address] 14 Dec, 2015 Bipolar 1 disorder F31.9 ; Borderline in tellectual functioning R41.83 and Extreme poverty Z59.[address] [address] 13 Dec, 2015 Bipolar disorder, current episode mixed, unspecified F31.60 and 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 [place] [id number] [place] [address] 16 Nov, 2015 Bipolar 1 disorder F31.9 ; Borderline in tellectual functioning R41.83 ; Extreme poverty Z59.5 and Non compliance with medical treatment Z91.19 [place] [address] [address] Oct, [facility] [address] [address] Oct, Dental caries K02.9 [place] [address] [address] Oct, Low back pain M54.5 and Other chronic pa in G89.29 [place] [address] [address] Oct, Bipolar 1 disorder F31.9 ; Borderline in tellectual functioning R41.83 ; Extreme poverty Z59.5 and Non compliance with medical treatment Z91.19 [place] [address] [address] Oct, [place] [address] [address] Oct, [place] [address] [address] Oct, Dental examination Z01.20 [place] [address] [address] Oct, Bipolar 1 disorder F31.9 ; Borderline in tellectual functioning R41.83 ; Extreme poverty Z59.5 and Non compliance with medical treatment Z91.19 [place] [address] [address] Oct, [place] [address] [address] Sep, Type 2 diabetes mellitus with complicati on E11.8 [place] [address] [place] [id number] [place] [address] Sep, Bipolar disorder, current episode mixed, unspecified F31.60 [place] [address] [address] Sep, Bipolar disorder, current episode mixed, unspecified F31.60 [place] [address] [place] [id number] [place] [address] Sep, Bipolar disorder, in partial remission, most recent episode manic F31.73 ; 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 ; Extreme poverty Z59.5 and Non compliance with medical treatment Z91.19 [place] [address] [address] Aug, Bipolar disorder, in partial remission, most recent episode manic F31.73 ; 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 ; Extreme poverty Z59.5 and Non compliance with medical treatment Z91.19 [place] [address] [address] Aug, Bipolar disorder, in partial remission, most recent episode manic F31.73 ; 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 ; Extreme poverty Z59.5 and Non compliance with medical treatment Z91.19 [place] [address] [address] Aug, [place] [address] [address] July, Bipolar disorder, in partial remission, most recent episode manic F31.73 ; 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 ; Extreme poverty Z59.5 and Non compliance with medical treatment Z91.19 [place] [address] [place] [id number] [place] [address] July, Bipolar disorder, current episode mixed, unspecified F31.60 [place] [address] [address] July, Bipolar disorder, in partial remission, most recent episode manic F31.73 ; 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 ; Extreme poverty Z59.5 and Non compliance with medical treatment Z91.19 [place] [address] [place] [id number] [place] [address] July, USP current use of opiate analgesi c Z79.891 and Chronic pain G89.29 [facility] [address] [place] [id number] [place] [address] Jun, USP current use of opiate analgesi c Z79.891 and Bipolar 1 disorder F31.9 [place] [address] [address] Jun, [place] [address] [address] Jun, [place] [address] [address] Jun, [place] [address] [address] Jun, Bipolar disorder, in partial remission, most recent episode manic F31.73 ; 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 and Non compliance with medical treatment Z91.19 [place] [address] [address] May, Bipolar disorder, in partial remission, most recent episode manic F31.73 ; 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 and Non compliance with medical treatment Z91.19 [place] [address] [address] May, Bipolar disorder, in partial remission, most recent episode manic F31.73 [place] [address] [address] May, Diabetes E11.9 and Chronic pain G89.29 [place] [address] [address] May, [place] [address] [address] 08 May, 2015 Bipolar disorder, in partial remission, most recent episode manic F31.73 ; Non compliance with medical treatment Z91.19 and 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 [place] [address] [address] 08 May, 2015 Type 2 diabetes mellitus with complicati on E11.8 and Back pain M54.9 [place] [address] [address] May, Bipolar disorder, in partial remission, most recent episode manic F31.73 and 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 [place] [address] [address] Apr, [place] [address] [address] Apr, [place] [address] [address] Apr, [place] [address] [address] Apr, Diabetes E11.9 ; Irritable bowel syndrom e with diarrhea K58.0 and Lumbar radiculopathy M54.16 [place] [address] [address] Apr, Breast screening Z12.39 [place] [address] [address] 02 Apr, 2015 Bipolar disorder, in partial remission, most recent episode manic F31.73 ; Non compliance with medical treatment Z91.19 and 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 [place] [address] [address] Mar, Edema, unspecified type R60.9 and Type 2 diabetes mellitus with complication E11.8 [place] [address] [address] Mar, Bipolar disorder, in partial remission, most recent episode manic F31.73 ; Non compliance with medical treatment Z91.19 ; 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 and Extreme poverty Z59.5 [place] [address] [address] 14 Mar, 2015 Bipolar disorder, current episode mixed, unspecified F31.60 ; 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 ; Extreme poverty Z59.5 and Generalized anxiety disorder F41.1 [place] [address] [address] 12 Mar, 2015 Bipolar disorder, in partial remission, most recent episode manic F31.73 ; 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 and Extreme poverty Z59.5 [place] [address] [address] Feb, Bipolar disorder, in partial remission, most recent episode manic F31.73 ; 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 and Extreme poverty Z59.5 [place] [address] [address] Feb, Bipolar disorder, in partial remission, most recent episode manic F31.73 ; 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 and Extreme poverty Z59.5 [place] [address] [address] Feb, [place] [address] [address] Jan, Type 2 diabetes mellitus with complicati on E11.8 and Petechiae R23.3 [place] [address] [address] Jan, Type 2 diabetes mellitus with complicati on E11.8 ; Edema, unspecified R60.9 ; Petechiae R23.3 and Diabetes E11.9 [place] [address] [address] 17 Jan, 2015 Bipolar disorder, in partial remission, most recent episode manic F31.73 ; 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 and Extreme poverty Z59.5 [place] [address] [address] Jan, Bipolar disorder, in partial remission, most recent episode manic F31.73 ; 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 and Extreme poverty Z59.5 [place] [address] [address] Dec, Bipolar disorder, in partial remission, most recent episode manic F31.73 [place] [address] [address] Dec, Edema, due to unspecified malnutrition t ype, unspecified edema R60.9 and Essential hypertension I10 [place] [address] [address] Dec, Bipolar disorder, in partial remission, most recent episode manic F31.73 [place] [address] [address] Nov, Bipolar I disorder, most recent episode (or current) mixed, unspecified 296.60 [place] [address] [address] Nov, Stress incontinence, female 625.6 ; Back pain 724.5 and Leg pain 729.5 [place] [address] [address] Nov, Generalized anxiety disorder 300.02 and Bipolar II disorder 296.89 [place] [address] [address] Nov, Bipolar I disorder, most recent episode (or current) mixed, unspecified 296.60 [place] [address] [address] Oct, [place] [address] [address] Oct, [place] [address] [address] Oct, [address] [address] Oct, Bipolar I disorder, most recent episode (or current) mixed, unspecified 296.60 [place] [address] [address] Sep, Diabetes 250.00 [facility] [address] [place] [id number] [place] [address] Sep, Bipolar I disorder, most recent episode (or current) mixed, unspecified 296.60 [facility] [address] [address] Sep, [facility] [address] [address] Sep, [facility] [address] [address] Sep, Bipolar I disorder, most recent episode (or current) mixed, unspecified 296.60 [facility] [address] [address] Sep, Bipolar I disorder, most recent episode (or current) mixed, unspecified 296.60 [facility] [address] [address] Sep, [facility] [address] [address] Sep, Anxiety 300.00 ; Diabetes 250.00 and Hyp erlipidemia 272.4 [facility] [address] [address] Aug, [facility] [address] [address] Aug, [facility] [address] [address] Aug, [facility] [address] [address] Aug, Bipolar I disorder, most recent episode (or current) mixed, unspecified 296.60 [facility] [address] [address] Aug, Generalized anxiety disorder 300.02 and Bipolar II disorder 296.89 [facility] [address] [address] July, Bipolar I disorder, most recent episode (or current) mixed, unspecified 296.60 [facility] [address] [place] [id number] [place] [address] July, Cough 786.2 [facility] [address] [place] [id number] [place] [address] July, Bipolar I disorder, most recent episode (or current) mixed, unspecified 296.60 [facility] [address] [place] [id number] [place] [address] Jun, Diabetes 250.00 [facility] [address] [place] [address] [id number] [place] [address] Jun, [facility] [address] [place] [address] [id number] [place] [address] Jun, [facility] [address] [place] [address] [id number] [place] [address] May, [facility] [address] [place] [address] [id number] [place] [address] May, [facility] [address] [place] [address] [id number] [place] [address] May, [facility] [address] [place] [id number] [place] [address] May, [facility] [address] [place] [id number] [place] [address] May, [facility] [address] [place] [address] [id number] [place] [address] May, [facility] [address] [place] [address] [id number] [place] [address] Apr, [facility] [address] [place] [id number] [place] [address] Apr, [facility] [address] [place] [address] [id number] [place] [address] Apr, [facility] [address] [place] [address] [id number] [place] [address] Apr, [facility] [place] [facility] [address] [id number] [place] [address] Apr, [facility] [place] [facility] [address] [id number] [place] [address] Apr, [facility] [place] [facility] [address] [id number] [place] [address] Apr, [facility] [place] [facility] [address] [id number] [place] [address] Apr, [facility] [place] [facility] [address] [id number] [place] [address] Mar, [facility] [place] [facility] [address] [id number] [place] [address] Mar, [facility] [place] [facility] [address] [id number] [place] [address] Mar, [facility] [place] [facility] [address] [id number] [place] [address] Mar, [facility] [place] [facility] [address] [id number] [place] [address] Mar, [facility] [place] [facility] [address] [id number] [place] [address] Mar, [facility] [place] [facility] [address] [id number] [place] [address] Mar, [facility] [place] [facility] [address] [id number] [place] [address] Mar, [facility] [place] [facility] [address] [id number] [place] [address] Feb, [facility] [place] [facility] [address] [id number] [place] [address] Feb, [facility] [place] [facility] [address] [id number] [place] [address] Feb, [facility] [place] [facility] [address] [id number] [place] [address] Feb, [facility] [place] [facility] [address] [id number] [place] [address] Feb, [facility] [place] [facility] [address] [facility] [id number] [place] [address] Feb, [facility] [place] [facility] [address] [id number] [place] [address] Feb, [facility] [place] [facility] [address] [id number] [place] [address] Feb, [facility] [place] [facility] [address] [id number] [place] [address] Feb, [facility] [place] [facility] [address] [id number] [place] [address] Feb, [facility] [place] [facility] [address] [id number] [place] [address] Jan, [facility] [place] [facility] [address] [id number] [place] [address] Jan, [facility] [place] [facility] [address] [id number] [place] [address] Jan, [facility] [place] [facility] [address] [id number] [place] [address] Jan, [facility] [place] [facility] [address] [id number] [place] [address] Jan, [facility] [place] [facility] [address] [id number] [place] [address] Jan, [facility] [place] [facility] [address] [id number] [place] [address] Jan, [facility] [place] [facility] [address] [id number] [place] [address] Jan, [facility] [place] [facility] [address] [id number] [place] [address] Jan, [facility] [place] [facility] [address] [id number] [place] [address] Jan, [facility] [place] [facility] [address] [id number] [place] [address] Jan, [facility] [place] [facility] [address] [id number] [place] [address] Jan, [facility] [place] [facility] [address] [id number] [place] [address] Jan, [facility] [place] [facility] [address] [id number] [place] [address] Jan, [facility] [place] [facility] [address] [id number] [place] [address] Jan, [facility] [place] [facility] [address] [id number] [place] [address] Dec, [facility] [place] [facility] [address] [id number] [place] [address] Dec, [facility] [place] [facility] [address] [id number] [place] [address] Dec, [facility] [place] [facility] [address] [id number] [place] [address] Dec, [facility] [place] [facility] [address] [id number] [place] [address] Dec, [facility] [place] [facility] [address] [id number] [place] [address] Dec, [facility] [place] [facility] [address] [id number] [place] [address] Dec, [facility] [place] [facility] [address] [id number] [place] [address] Dec, [facility] [place] [facility] [address] [id number] [place] [address] Nov, 2013 [facility] [place] [facility] [address] [id number] [place] [address] 25 Nov, 2013 [facility] [place] [facility] [address] [id number] [place] [address] 10 Nov, 2013 [facility] [place] [facility] [address] [id number] [place] [address] 10 Nov, 2013 [facility] [place] [facility] [address] [id number] [place] [address] 08 Sep, 2013 [facility] [place] [facility] [address] [id number] [place] [address] 08 Sep, 2013 [facility] [place] [facility] [address] [id number] [place] [address] 08 Nov, 2013 [facility] [place] [facility] [address] [id number] [place] [address] 08 Nov, 2013 [facility] [place] [facility] [address] [id number] [place] [address] 08 Nov, 2013 [facility] [place] [facility] [address] [id number] [place] [address] 08 Nov, 2013 [facility] [place] [facility] [address] [id number] [place] [address] 04 Nov, 2013 [facility] [place] [facility] [address] [id number] [place] [address] 04 Nov, 2013 [facility] [place] [facility] [address] [id number] [place] [address] Nov, 2013 [facility] [place] [facility] [address] [id number] [place] [address] Nov, 2013 [facility] [place] [facility] [address] [id number] [place] [address] Nov, 2013 [facility] [place] [facility] [address] [id number] [place] [address] Oct, [facility] [place] [facility] [address] [id number] [place] [address] Oct, [facility] [place] [facility] [address] [id number] [place] [address] Oct, [facility] [place] [facility] [address] [id number] [place] [address] Oct, [facility] [place] [facility] [address] [id number] [place] [address] Oct, [facility] [place] [facility] [address] [id number] [place] [address] Oct, [facility] [place] [facility] [address] [id number] [place] [address] Oct, [facility] [place] [facility] [address] [id number] [facility] [address] Oct, [facility] [place] [facility] [address] [facility] [id number] [facility] [address] Oct, [facility] [place] [facility] [address] [facility] [id number] [facility] [place] [address] Oct, [facility] [place] [facility] [address] [facility] [id number] [place] [address] Oct, [facility] [place] [facility] [address] [facility] [id number] [facility] [address] Oct, [facility] [place] [facility] [address] [facility] [id number] [place] [address] Oct, [facility] [place] [facility] [address] [facility] [id number] [place] [address] Oct, [facility] [place] [facility] [address] [id number] [facility] [address] Sep, [facility] [place] [facility] [address] [facility] [id number] [facility] [address] Sep, [facility] [place] [facility] [address] [facility] [id number] [facility] [address] Sep, [facility] [place] [facility] [address] [facility] [id number] [place] [address] Sep, 2013 [facility] [place] [facility] [address] [id number] [place] [address] Sep, 2013 [facility] [place] [facility] [address] [facility] [id number] [place] [address] Sep, 2013 [facility] [place] [facility] [address] [facility] [id number] [place] [address] Sep, [facility] [place] [facility] [address] [facility] [id number] [place] [address] Sep, [facility] [place] [facility] [address] [facility] [id number] [facility] [place] [address] Aug, [facility] [place] [facility] [address] [facility] [id number] [place] [address] Aug, [facility] [place] [facility] [address] [id number] [place] [address] Aug, [facility] [place] [facility] [address] [id number] [place] [address] Aug, [facility] [place] [facility] [address] [id number] [place] [address] Aug, [facility] [place] [facility] [address] [id number] [place] [address] Aug, [facility] [place] [facility] [address] [id number] [place] [address] Aug, [facility] [place] [facility] [address] [id number] [place] [address] Aug, [facility] [place] [facility] [address] [id number] [place] [address] July, [facility] [place] [facility] [address] [id number] [place] [address] July, [facility] [place] [facility] [address] [id number] [place] [address] July, [facility] [place] [facility] [address] [id number] [place] [address] July, [facility] [place] [facility] [address] [id number] [place] [address] July, [facility] [place] [facility] [address] [id number] [place] [address] July, [facility] [place] [facility] [address] [id number] [place] [address] July, [facility] [place] [facility] [address] [id number] [place] [address] July, [facility] [place] [facility] [address] [id number] [place] [address] Jun, [facility] [place] [facility] [address] [id number] [place] [address] Jun, [facility] [place] [facility] [address] [facility] [id number] [place] [address] Jun, [facility] [place] [facility] [address] [id number] [place] [address] Jun, [facility] [address] [id number] [place] [address] Jun, [facility] [address] [id number] [place] [address] Jun, [facility] [address] [id number] [place] [address] Jun, [facility] [address] [id number] [place] [address] Jun, [facility] [address] [id number] [place] [address] Jun, [facility] [address] [id number] [place] [address] Jun, [facility] [address] [id number] [place] [address] Jun, [facility] [address] [id number] [place] [address] Jun, [facility] [address] [id number] [place] [address] May, [facility] [address] [id number] [place] [address] May, [facility] [address] [id number] [place] [address] May, [facility] [address] [facility] [id number] [place] [address] May, [facility] [address] [id number] [place] [address] May, [facility] [address] [id number] [place] [address] May, [facility] [address] [id number] [place] [address] May, [facility] [address] [facility] [id number] [facility] [place] [address] May, [facility] [address] [facility] [id number] [facility] [address] May, [facility] [address] [facility] [id number] [facility] [place] [address] May, [facility] [address] [facility] [id number] [facility] [place] [address] May, [facility] [address] [facility] [id number] [facility] [address] May, [facility] [address] [id number] [facility] [place] [address] May, [facility] [address] [id number] [facility] [place] [address] May, [facility] [address] [id number] [facility] [place] [address] Apr, [facility] [address] [facility] [id number] [facility] [address] Apr, [facility] [address] [id number] [facility] [address] Apr, [facility] [address] [id number] [place] [address] Apr, [facility] [facility] [address] [id number] [place] [address] Apr, [facility] [address] [facility] [id number] [facility] [place] [address] Apr, [facility] [address] [id number] [place] [address] Mar, [facility] [address] [facility] [id number] [place] [address] Mar, [facility] [address] [id number] [place] [address] Mar, [facility] [address] [id number] [place] [address] Mar, [facility] [address] [id number] [place] [address] Mar, [facility] [address] [id number] [place] [address] Mar, [facility] [address] [id number] [place] [address] Mar, [facility] [address] [id number] [place] [address] Mar, [facility] [address] [id number] [place] [address] Mar, [facility] [address] [id number] [place] [address] Mar, [facility] [address] [id number] [place] [address] Mar, [facility] [address] [id number] [place] [address] Mar, [facility] [address] [id number] [place] [address] Mar, [facility] [address] [id number] [place] [address] Mar, [facility] [address] [id number] [place] [address] Feb, [facility] [address] [id number] [place] [address] Feb, [facility] [address] [id number] [place] [address] Feb, [facility] [address] [id number] [place] [address] Feb, [facility] [address] [id number] [place] [address] Feb, [facility] [address] [id number] [place] [address] Feb, [facility] [address] [id number] [place] [address] Feb, 2012 [facility] [address] [id number] [place] [address] Feb, 2012 [facility] [address] [id number] [place] [address] Feb, 2012 [facility] [address] [id number] [place] [address] Feb, 2012 [facility] [address] [id number] [place] [address] Feb, 2012 [facility] [address] [id number] [place] [address] Feb, 2012 [facility] [address] [id number] [place] [address] Feb, 2012 [facility] [id number] [place] [address] Feb, 2012 [facility] [address] [id number] [place] [address] Feb, 2012 [facility] [address] [id number] [place] [address] Feb, 2012 [facility] [address] [id number] [place] [address] 24 Dec, 2012 [facility] [address] [id number] [place] [address] 24 Dec, 2012 [facility] [address] [id number] [place] [address] Dec, 2012 [facility] [address] [id number] [place] [address] Dec, 2012 [facility] [address] [id number] [place] [address] Dec, 2012 [facility] [address] [id number] [place] [address] Dec, 2012 [facility] [address] [id number] [place] [address] 14 Dec, 2012 [facility] [address] [facility] [id number] [place] [address] 14 Dec, 2012 [facility] [address] [facility] [id number] [place] [address] 10 Dec, 2012 [facility] [address] [id number] [place] [address] 10 Dec, 2012 [facility] [address] [facility] [id number] [place] [address] 10 Dec, 2012 [facility] [address] [facility] [id number] [facility] [address] 10 Dec, 2012 [facility] [address] [id number] [place] [address] 03 Dec, 2012 [facility] [address] [id number] [place] [address] 25 Nov, 2012 [facility] [address] [id number] [place] [address] 20 Nov, 2012 [facility] [address] [facility] [id number] [place] [address] 18 Nov, 2012 [facility] [address] [id number] [place] [address] 16 Nov, 2012 [facility] [address] [id number] [place] [address] 12 Nov, 2012 [facility] [address] [id number] [place] [address] 11 Nov, 2012 [facility] [address] [facility] [id number] [place] [address] 05 Nov, 2012 [facility] [address] [id number] [place] [address] 15 Oct, 2012 [facility] [address] [facility] [id number] [place] [address] Oct, [facility] [address] [id number] [place] [address] 24 Sep, 2012 [facility] [address] [id number] [facility] [address] 23 Sep, 2012 [facility] [address] [id number] [facility] [address] Sep, [facility] [address] [facility] [id number] [facility] [place] [address] 17 Sep, 2012 [facility] [address] [id number] [place] [address] 15 Sep, 2012 [facility] [address] [facility] [id number] [facility] [address] Sep, [facility] [address] [facility] [id number] [facility] [place] [address] Sep, [facility] [address] [id number] [place] [address] Aug, [facility] [address] [id number] [place] [address] Aug, [facility] [address] [id number] [place] [address] 16 Aug, 2012 [facility] [address] [facility] [id number] [place] [address] Aug, [facility] [address] [id number] [place] [address] Aug, [facility] [address] [id number] [place] [address] Aug, [facility] [address] [id number] [place] [address] Aug, [facility] [address] [facility] [id number] [place] [address] Aug, [facility] [address] [id number] [facility] [place] [address] July, [facility] [address] [facility] [id number] [place] [address] July, [facility] [address] [id number] [place] [address] July, [facility] [address] [facility] [id number] [place] [id number] July, [facility] [address] [id number] [place] [address] July, [facility] [address] [id number] [place] [address] Jun, [facility] [address] [id number] [place] [address] May, [facility] [address] [id number] [place] [address] May, [facility] [address] [id number] [place] [address] May, [facility] [address] [id number] [place] [address] Apr, [facility] [address] [id number] [place] [address] Apr, [facility] [address] [id number] [place] [address] Apr, [facility] [address] [id number] [place] [address] Mar, [facility] [address] [id number] [place] [address] Mar, [facility] [address] [id number] [place] [address] Mar, [facility] [address] [id number] [place] [address] Mar, [facility] [address] [id number] [place] [address] Mar, [facility] [address] [id number] [place] [address] Mar, [facility] [address] [id number] [place] [address] Mar, [facility] [address] [id number] [place] [address] Feb, [facility] [address] [id number] [place] [address] Feb, [facility] [address] [id number] [place] [address] Feb, [facility] [address] [id number] [place] [address] Feb, [facility] [address] [id number] [place] [address] Feb, [facility] [address] [id number] [place] [address] Feb, [facility] [address] [id number] [place] [address] Feb, [facility] [address] [id number] [place] [address] Feb, [facility] [address] [id number] [place] [address] Jan, [facility] [address] [id number] [place] [address] Jan, [facility] [address] [id number] [place] [address] Jan, [facility] [address] [id number] [place] [address] Jan, [facility] [address] [id number] [place] [address] Jan, [facility] [address] [id number] [place] [address] Jan, [facility] [address] [id number] [place] [address] Jan, [facility] [address] [id number] [place] [address] Jan, [facility] [address] [id number] [place] [address] Jan, [facility] [address] [id number] [place] [address] Jan, [facility] [address] [id number] [place] [address] Jan, [facility] [address] [id number] [place] [address] Jan, [facility] [address] [id number] [place] [address] Jan, [facility] [address] [id number] [place] [address] Jan, [facility] [address] [id number] [place] [address] Jan, [facility] [address] [id number] [place] [address] Jan, [facility] [address] [id number] [place] [address] Dec, [facility] [address] [id number] [place] [address] Dec, [facility] [address] [id number] [place] [address] Dec, [facility] [address] [id number] [place] [address] Dec, [facility] [address] [id number] [place] [address] Dec, [facility] [address] [id number] [place] [address] Dec, [facility] [address] [id number] [place] [address] Dec, [facility] [address] [id number] [place] [address] Dec, [facility] [address] [id number] [place] [address] Dec, [facility] [address] [id number] [place] [address] Dec, [facility] [address] [id number] [place] [address] 18 Nov, 2011 [facility] [address] [id number] [place] [address] Nov, [facility] [address] [id number] [place] [address] 24 Oct, 2011 [facility] [address] [id number] [place] [address] Oct, [facility] [address] [facility] [id number] [place] [address] Oct, [facility] [address] [id number] [place] [address] Oct, [facility] [address] [id number] [place] [address] Oct, [facility] [address] [id number] [place] [address] Oct, [facility] [address] [id number] [place] [address] Oct, [facility] [address] [id number] [place] [address] Sep, [facility] [address] [id number] [place] [address] Aug, [facility] [address] [id number] [place] [address] Aug, [facility] [address] [id number] [place] [address] Aug, [facility] [address] [id number] [place] [address] Aug, [facility] [address] [id number] [place] [address] Aug, [facility] [address] [id number] [place] [address] July, [facility] [address] [id number] [place] [address] July, [facility] [address] [facility] [id number] [facility] [address] July, [facility] [address] [id number] [place] [address] Jun, [facility] [address] [id number] [place] [address] Jun, [facility] [address] [id number] [place] [address] Jun, [facility] [address] [id number] [facility] [place] [address] Jun, [facility] [address] [id number] [place] [address] 30 May, 2011 [facility] [address] [id number] [place] [address] 30 May, 2011 [facility] [address] [id number] [place] [address] May, [facility] [address] [id number] [facility] [place] [address] May, [facility] [address] [id number] [place] [address] May, [facility] [address] [id number] [place] [address] May, [facility] [address] [id number] [place] [address] May, [facility] [address] [id number] [place] [address] May, [facility] [address] [id number] [place] [address] 08 May, 2011 [facility] [address] [id number] [place] [address] 05 May, 2011 [facility] [address] [id number] [place] [address] May, [facility] [address] [id number] [place] [address] May, [facility] [address] [id number] [place] [address] Mar, [facility] [address] [id number] [place] [address] Mar, [facility] [address] [id number] [place] [address] 28 Feb, 2011 [facility] [address] [id number] [place] [address] Feb, [facility] [address] [id number] [place] [address] Feb, [facility] [address] [id number] [place] [address] 15 Feb, 2011 [facility] [address] [id number] [place] [address] Feb, [facility] [address] [id number] [place] [address] Feb, [facility] [address] [id number] [place] [address] Feb, [facility] [address] [id number] [place] [address] Jan, [facility] [address] [id number] [place] [address] Jan, [facility] [address] [id number] [place] [address] Jan, [facility] [address] [id number] [place] [address] 17 Jan, 2011 [facility] [id number] [place] [address] 07 Jan, 2011 [facility] [address] [id number] [place] [address] Jan, [facility] [address] [id number] [place] [address] Dec, [facility] [address] [id number] [place] [address] 27 Dec, 2010 [facility] [address] [id number] [place] [address] Dec, [facility] [address] [id number] [place] [address] July, [facility] [address] [id number] [place] [address] July, [facility] [address] [id number] [place] [address] Feb, [facility] [address] [id number] [place] [address] Jan, [facility] [address] [id number] [place] [address] Dec, [facility] [address] [id number] [place] [address] Dec, [facility] [address] [id number] [place] [address] Sep, [facility] [address] [id number] [place] [address] Aug, [facility] [address] [id number] [place] [address] Jun, [facility] [address] [id number] [place] [address] Jun, [facility] [address] [id number] [place] [address] Jan, [facility] [address] [id number] [place] [address] Jan, [facility] [address] [id number] [place] [address] 05 Jan, 2009 [facility] [address] [id number] [place] [address] Jan, [facility] [address] [id number] [place] [address] Dec, [facility] [address] [id number] [place] [address] Dec, [facility] [address] [id number] [place] [address] Dec, [facility] [address] [id number] [place] [address] Nov, [facility] [address] [id number] [place] [address] July, [facility] [address] [id number] [place] [address] May, [facility] [address] [id number] [place] [address] Apr, [facility] [address] [id number] [place] [address] Feb, [facility] [address] [id number] [place] [address] Dec, IMMUNIZATIONS No Known Immunizations SOCIAL HISTORY [...]
--- OUTSIDE RECORDS SUMMARY | 2019-06-22 19:42 | XMS REPORT ---
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 Active 919597932 Problem Diabetes E11.9 Active 945580016 Problem Type 2 diabetes mellitus with complication E11.8 Active 494793652 Problem Post laminectomy syndrome M96.1 Acti ve 30774157 Problem Bipolar 1 disorder F31.9 Active 3 89011859 Problem New daily persistent headache G44.52 Active 972078317 Problem Type 2 diabetes mellitus with hyperglycemia E11.65 Active 75095348 Problem Other chronic pain G89.29 Active 8 0548798 Problem Essential hypertension I10 Active 87126090 Problem Acute bilateral low back pain with right-sided sciatica M54.41 Active 306824177 Problem Bipolar disorder, in partial remission, most rec ent episode manic F31.73 Active 74320065 Problem Seasonal allergic rhinitis due to pollen J30.1 Active 52204374 Problem Hyperlipidemia, unspecified E78.5 Ac tive 51008059 Problem Eye exam normal Z01.00 Active 2438 22983 Problem Extreme poverty Z59.5 Active 1140 3006 Problem Lumbago with sciatica, left side M54.42 Active 074136604 Problem Hypertriglyceridemia E78.1 Active 354206252 Problem Insulin long-term use Z79.4 Active 921778831 Problem Rhinosinusitis J32.9 Active 60426 000 ALLERGIES No Information ENCOUNTERS Encounter Location Date Diagnosis [facility] [id number] [place] [address] May, [facility] [id number] [place] [address] May, [facility] [address] [id number] [place] [address] Apr, [facility] [address] [facility] [id number] [address] [place] [address] Apr, Seasonal allergic rhinitis d ue to pollen J30.1 [facility] [id number] [place] [address] Apr, Essential hypertension I10 and Diabetes E11.9 [facility] [id number] [place] [address] Apr, [facility] [id number] [place] [address] Mar, Bipolar 1 disorder F31.9 ; Borderline in tellectual functioning R41.83 and Extreme poverty Z59.5 [facility] [id number] [place] [address] Mar, Exercise counseling Z71.82 [facility] [facility] [id number] [place] [address] Mar, [facility] [id number] [place] [address] Mar, Bipolar disorder, in partial remission, most recent episode manic F31.73 and 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 [facility] [id number] [place] [address] Mar, [facility] [address] [address] Mar, Exercise counseling Z71.82 [facility] [id number] [place] [address] Feb, Bipolar 1 disorder F31.9 ; Borderline in tellectual functioning R41.83 and Extreme poverty Z59.5 [facility] [address] [address] Feb, [facility] [address] [address] Feb, Type 2 diabetes mellitus with complicati on E11.8 [facility] [address] [facility] [id number] [address] [place] [address] Feb, Acute low back pain without sciatica, unspecified back pain laterality M54.5 [facility] [address] [address] Feb, Bipolar 1 disorder F31.9 ; Borderline in tellectual functioning R41.83 and Extreme poverty Z59.5 [facility] [address] [address] Jan, Bipolar 1 disorder F31.9 ; Borderline in tellectual functioning R41.83 and Extreme poverty Z59.5 [facility] [address] [address] Jan, [facility] [address] [address] Jan, Type 2 diabetes mellitus with complicati on E11.8 [facility] [address] [address] Jan, Type 2 diabetes mellitus with complicati on E11.8 ; Dysuria R30.0 and Diarrhea, unspecified type R19.7 [facility] [address] [address] Jan, Bipolar 1 disorder F31.9 ; Borderline in tellectual functioning R41.83 and Extreme poverty Z59.5 [address] [address] [address] Dec, [address] [address] [address] Dec, [address] [address] [address] Dec, [facility] [id number] [place] [address] Dec, [facility] [id number] [place] [address] Dec, Rhinosinusitis J32.9 [facility] [id number] [place] [address] Dec, [facility] [address] [address] Dec, Bipolar 1 disorder F31.9 ; Borderline in tellectual functioning R41.83 and Extreme poverty Z59.5 [address] [id number] [place] [address] Dec, Type 2 diabetes mellitus with complicati on E11.8 and Type 2 diabetes mellitus with hyperglycemia E11.65 [address] [address] [address] Dec, [address] [address] [address] Dec, Type 2 diabetes mellitus with complicati on E11.8 ; Insulin long-term use Z79.4 ; Hyperglycemia R73.9 and Yeast infection B37.9 [facility] [facility] [id number] [place] [address] Dec, Encounter for immunization Z23 [place] [address] [address] Nov, [place] [address] [address] Nov, Bipolar 1 disorder F31.9 ; Borderline in tellectual functioning R41.83 and Extreme poverty Z59.5 [facility] [facility] [id number] [place] [address] Nov, [address] [address] [address] Nov, [place] [address] [address] Nov, Borderline intellectual functioning R41. 83 and Bipolar disorder, in partial remission, most recent episode manic F31.73 [facility] [id number] [place] [address] Nov, Epigastric abdominal pain R1 0.13 [facility] [address] [address] Nov, Bipolar 1 disorder F31.9 ; Borderline in tellectual functioning R41.83 and Extreme poverty Z59.5 [facility] [address] [place] [address] Oct, Dysuria R30.0 and Acute cyst itis without hematuria N30.00 [facility] [id number] [place] [address] Oct, [address] [address] [address] Oct, [address] [address] [address] Oct, Bipolar 1 disorder F31.9 ; Borderline in tellectual functioning R41.83 and Extreme poverty Z59.5 [address] [address] [address] Oct, [address] [address] [address] Oct, [address] [address] [address] Oct, Bipolar disorder, in partial remission, most recent episode manic F31.73 and 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 [place] [address] [address] Oct, Bipolar 1 disorder F31.9 ; Borderline in tellectual functioning R41.83 and Extreme poverty Z59.5 [place] [address] [address] Oct, Diarrhea, unspecified type R19.7 [facility] [address] [facility] [id number] [place] [id number] Sep, Dental examination Z01.20 and Dental car ies K02.9 [facility] [address] [facility] [id number] [address] [place] [address] Sep, Mouth pain K13.79 [facility] [address] [address] Sep, [facility] [address] [address] Sep, Bipolar 1 disorder F31.9 ; Borderline in tellectual functioning R41.83 and Extreme poverty Z59.5 [facility] [id number] [place] [address] Sep, [facility] [address] [address] Sep, [facility] [address] [address] Sep, Diabetes E11.9 ; Hyperglycemia R73.9 ; L eliseo term current use of insulin Z79.4 and Diarrhea, unspecified type R19.7 [facility] [id number] [place] [address] Sep, [facility] [address] [address] Sep, Bipolar 1 disorder F31.9 ; Borderline in tellectual functioning R41.83 and Extreme poverty Z59.5 [facility] [address] [address] Sep, [facility] [address] [address] Sep, [facility] [address] [address] Aug, Bipolar 1 disorder F31.9 ; Borderline in tellectual functioning R41.83 and Extreme poverty Z59.5 [address] [address] [address] Aug, Exercise counseling Z71.82 [address] [address] [address] Aug, Bipolar 1 disorder F31.9 ; Borderline in tellectual functioning R41.83 and Extreme poverty Z59.5 [address] [address] [address] Aug, Borderline intellectual functioning R41. 83 and Bipolar disorder, in partial remission, most recent episode manic F31.73 [address] [address] [address] Aug, Low back pain M54.5 [address] [address] [address] Aug, Borderline intellectual functioning R41. 83 and Bipolar disorder, in partial remission, most recent episode manic F31.73 [address] [address] [address] July, Acute superficial gastritis without hemo rrhage K29.00 ; Low back pain M54.5 and Other chronic pain G89.29 [address] [address] [address] July, [address] [address] [address] July, [facility] [address] [address] Jun, [facility] [address] [facility] [id number] [address] [place] [address] Jun, Bilateral lower extremity ed epi R60.0 [facility] [address] [address] Jun, Borderline intellectual functioning R41. 83 and Bipolar disorder, in partial remission, most recent episode manic F31.73 [address] [address] [address] 03 Jun, 2018 [address] [address] May, Bronchitis J40 [place] [address] [id number] 14 May, 2018 Screening for breast cancer Z12.31 and E ncounter for immunization Z23 [address] [address] [address] 06 May, 2018 Bipolar 1 disorder F31.9 ; Borderline in tellectual functioning R41.83 and Extreme poverty Z59.5 [address] [address] [address] 11 Apr, 2018 [address] [address] 07 Apr, 2018 Bipolar 1 disorder F31.9 ; Borderline in tellectual functioning R41.83 and Extreme poverty Z59.5 [address] [address] [address] 05 Apr, 2018 Irritable bowel syndrome with diarrhea K 58.0 and Dental abscess K04.7 [address] [address] [address] Mar, [address] [address] Mar, [address] [address] [address] Mar, Bipolar 1 disorder F31.9 ; Borderline in tellectual functioning R41.83 and Extreme poverty Z59.5 [address] [address] Mar, Hypertriglyceridemia E78.1 [address] [address] [address] 08 Mar, 2018 Borderline intellectual functioning R41. 83 and Bipolar disorder, in partial remission, most recent episode manic F31.73 [place] [address] [id number] Mar, Bipolar 1 disorder F31.9 ; Borderline in tellectual functioning R41.83 and Extreme poverty Z59.5 [place] [address] [id number] Feb, Generalized abdominal pain R10.84 and Di arrhea, unspecified type R19.7 [place] [address] [address] Feb, [address] [address] Feb, Myalgia M79.10 and Nausea R11.[address] [address] Feb, Bipolar 1 disorder F31.9 ; Borderline in tellectual functioning R41.83 and Extreme poverty Z59.5 [address] [address] [address] Feb, [address] [address] [address] Feb, Diabetes E11.9 ; Hyperglycemia R73.9 and Diarrhea, unspecified R19.[address] [address] Feb, Diarrhea, unspecified type R19.7 ; Abdom inal pain R10.9 and Encounter for immunization Z23 [place] [address] [address] Jan, Bipolar 1 disorder F31.9 ; Borderline in tellectual functioning R41.83 and Extreme poverty Z59.[address] [address] Dec, Bipolar 1 disorder F31.9 ; Borderline in tellectual functioning R41.83 and Extreme poverty Z59.5 [address] [address] Nov, [address] [id number] [place] [address] Nov, Hypertriglyceridemia E78.[address] [address] Nov, Bipolar 1 disorder F31.9 ; Borderline in tellectual functioning R41.83 and Extreme poverty Z59.5 [address] [address] [address] Nov, Type 2 diabetes mellitus with complicati on E11.8 [address] [address] [address] Nov, Borderline intellectual functioning R41. 83 and Bipolar disorder, in partial remission, most recent episode manic F31.[address] [address] 12 Nov, 2017 Type 2 diabetes mellitus with complicati on E11.8 [address] [address] [address] Nov, Bipolar 1 disorder F31.9 ; Borderline in tellectual functioning R41.83 and Extreme poverty Z59.[address] [address] 10 Nov, 2017 Type 2 diabetes mellitus with complicati on E11.8 ; Pain of left upper arm M79.622 ; Pain in right upper arm M79.621 ; Hyperglycemia R73.9 ; Lumbago with sciatica, left side M54.42 and Other chronic pain G89.29 [address] [address] [address] Oct, Bipolar 1 disorder F31.9 ; Borderline in tellectual functioning R41.83 and Extreme poverty Z59.[address] [address] Oct, Type 2 diabetes mellitus with hyperglyce didi E11.65 ; 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 and Other acute gastritis without hemorrhage K29.[address] [place] [address] Oct, Bipolar 1 disorder F31.9 ; Borderline in tellectual functioning R41.83 and Extreme poverty Z59.5 [address] [address] [address] Sep, Diarrhea, unspecified R19.7 and Vomiting , unspecified R11.10 [address] [address] [address] Aug, Type 2 diabetes mellitus with complicati on E11.8 [address] [address] [address] Aug, [place] [address] [address] Aug, Bipolar 1 disorder F31.9 ; Borderline in tellectual functioning R41.83 and Extreme poverty Z59.5 [address] [address] [address] Aug, Borderline intellectual functioning R41. 83 and Bipolar disorder, in partial remission, most recent episode manic F31.73 [address] [address] [address] Aug, Bipolar 1 disorder F31.9 [address] [address] [address] Aug, [address] [address] [address] Aug, [place] [address] [address] Aug, Bipolar 1 disorder F31.9 ; Borderline in tellectual functioning R41.83 and Extreme poverty Z59.5 [address] [address] [address] July, Type 2 diabetes mellitus with complicati on E11.8 [address] [address] [address] July, Bipolar 1 disorder F31.9 ; Borderline in tellectual functioning R41.83 and Extreme poverty Z59.5 [address] [place] [address] Jun, Bipolar 1 disorder F31.9 ; Borderline in tellectual functioning R41.83 and Extreme poverty Z59.5 [address] [address] [address] Jun, Bipolar 1 disorder F31.9 ; Borderline in tellectual functioning R41.83 and Extreme poverty Z59.5 [address] [address] [address] Jun, Bipolar 1 disorder F31.9 ; Borderline in tellectual functioning R41.83 and Extreme poverty Z59.5 [address] [address] [address] May, Urinary tract infection without hematuri a, site unspecified N39.0 [address] [address] [address] May, Bipolar 1 disorder F31.9 ; Borderline in tellectual functioning R41.83 and Extreme poverty Z59.5 [address] [address] [address] Apr, Diabetes E11.9 and Breast cancer screeni ng Z12.31 [address] [address] [address] Apr, Bipolar 1 disorder F31.9 and 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 [address] [address] [address] Mar, Bipolar 1 disorder F31.9 ; Borderline in tellectual functioning R41.83 and Extreme poverty Z59.5 [address] [address] [address] Mar, New daily persistent headache G44.52 ; L eg pain 729.5 and History of carpal tunnel release Z98.890 [place] [address] [address] Mar, Hyperlipidemia, unspecified E78.5 [place] [address] [address] Mar, Bipolar 1 disorder F31.9 ; Borderline in tellectual functioning R41.83 and Extreme poverty Z59.5 [place] [address] [address] Feb, Bipolar 1 disorder F31.9 ; Borderline in tellectual functioning R41.83 and Extreme poverty Z59.5 [place] [address] [address] Feb, Diabetes E11.9 [place] [address] [address] Feb, Viral syndrome B34.9 [place] [address] [address] Jan, Other viral agents as the cause of disea ses classified elsewhere B97.89 and Acute upper respiratory infection, unspecified J06.9 [place] [address] [address] Jan, Bipolar 1 disorder F31.9 and 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 [place] [address] [address] Jan, Bipolar 1 disorder F31.9 ; Borderline in tellectual functioning R41.83 and Extreme poverty Z59.5 [place] [address] [address] Dec, Diabetes E11.9 [place] [address] [address] Dec, Diabetes E11.9 and Encounter for immuniz ation Z23 [place] [address] [address] Dec, Bipolar 1 disorder F31.9 ; Borderline in tellectual functioning R41.83 and Extreme poverty Z59.5 [place] [address] [address] Dec, Back pain M54.9 [facility] [address] [address] Nov, [address] [address] Nov, Bipolar 1 disorder F31.9 ; Borderline in tellectual functioning R41.83 and Extreme poverty Z59.5 [place] [address] [address] Nov, Bipolar 1 disorder F31.9 ; Borderline in tellectual functioning R41.83 and Extreme poverty Z59.5 [place] [address] [address] Oct, Borderline intellectual functioning R41. 83 and Bipolar 1 disorder F31.9 [place] [address] [address] Oct, Bipolar 1 disorder F31.9 ; Borderline in tellectual functioning R41.83 and Extreme poverty Z59.5 [place] [address] [address] Oct, Back pain M54.9 [place] [address] [address] Oct, Borderline intellectual functioning R41. 83 and Type 2 diabetes mellitus with complication E11.8 [place] [address] [address] Sep, Bipolar 1 disorder F31.9 ; Borderline in tellectual functioning R41.83 and Extreme poverty Z59.5 [place] [address] [address] Sep, Borderline intellectual functioning R41. 83 and Bipolar 1 disorder F31.9 [place] [address] [address] Sep, Bipolar 1 disorder F31.9 ; Borderline in tellectual functioning R41.83 and Extreme poverty Z59.5 [facility] [id number] [place] [address] Aug, Diabetes E11.9 ; Hyperlipidemia, unspeci fied E78.5 and Lumbar radiculopathy M54.16 [facility] [id number] [place] [address] 15 Aug, 2016 Bipolar 1 disorder F31.9 ; Borderline in tellectual functioning R41.83 and Extreme poverty Z59.5 [place] [address] [address] Aug, [place] [address] [address] Aug, [place] [address] [address] Aug, [place] [address] [address] July, [place] [address] [address] July, Acute bilateral low back pain with right -sided sciatica M54.41 [place] [address] [address] July, Bipolar 1 disorder F31.9 ; Borderline in tellectual functioning R41.83 and Extreme poverty Z59.5 [place] [id number] [place] [address] July, Back pain M54.9 and Diabetes E11.9 [place] [address] [address] Jun, Bipolar 1 disorder F31.9 ; Borderline in tellectual functioning R41.83 and Extreme poverty Z59.5 [place] [id number] [place] [address] Jun, Bipolar 1 disorder F31.9 ; Borderline in tellectual functioning R41.83 and Extreme poverty Z59.5 [place] [address] [address] 22 May, 2016 Visit for pelvic exam Z01.419 ; Acute va ginitis N76.0 and Diabetes E11.9 [place] [address] [address] 16 May, 2016 Bipolar 1 disorder F31.9 ; Borderline in tellectual functioning R41.83 and Extreme poverty Z59.5 [place] [address] [address] 08 May, 2016 [place] [address] [address] May, [place] [address] [address] 02 May, 2016 Bipolar 1 disorder F31.9 ; Borderline in tellectual functioning R41.83 and Extreme poverty Z59.5 [place] [address] [address] May, Hyperlipidemia, unspecified E78.5 [place] [address] [address] 13 Apr, 2016 Breast cancer screening Z12.39 [place] [address] [address] Mar, [place] [address] [address] Mar, Bipolar disorder, current episode mixed, unspecified F31.60 [place] [address] [address] Mar, Bipolar 1 disorder F31.9 ; Borderline in tellectual functioning R41.83 and Extreme poverty Z59.5 [place] [address] [address] Feb, Acute nasopharyngitis J00 [place] [address] [address] Feb, Dental examination Z01.20 [place] [address] [address] 21 Feb, 2016 Dental cavities K02.9 and Chronic period ontitis, unspecified K05.30 [place] [address] [address] 13 Feb, 2016 Low back pain M54.5 and Extreme poverty Z59.[address] [address] Feb, [address] [address] 05 Feb, 2016 Routine gynecological examination V72.31 ; Breast cancer screening Z12.39 and Herpes simplex type [address] [address] 02 Feb, 2016 Diabetes E11.[address] [address] Feb, Encounter for dental examination and leti aning without abnormal findings Z01.[address] [address] 22 Jan, 2016 Hyperlipidemia, unspecified E78.[address] [address] 22 Jan, 2016 Bipolar 1 disorder F31.9 ; Borderline in tellectual functioning R41.83 and Extreme poverty Z59.5 [place] [address] [address] 18 Jan, 2016 Diabetes E11.9 [place] [address] [address] 17 Jan, 2016 Diabetes E11.9 [place] [address] [address] 14 Dec, 2015 Bipolar 1 disorder F31.9 ; Borderline in tellectual functioning R41.83 and Extreme poverty Z59.[address] [address] 13 Dec, 2015 Bipolar disorder, current episode mixed, unspecified F31.60 and 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83 ; Extreme poverty Z59.5 and Non compliance with medical treatment Z91.19 [place] [address] [address] Oct, [place] [address] [address] Oct, [place] [address] [address] Oct, Dental examination Z01.20 [place] [address] [address] Oct, Bipolar 1 disorder F31.9 ; Borderline in tellectual functioning R41.83 ; Extreme poverty Z59.5 and Non compliance with medical treatment Z91.19 [place] [address] [address] Oct, [place] [address] [address] Sep, Type 2 diabetes mellitus with complicati on E11.8 [place] [address] [address] [id number] [place] [address] Sep, Bipolar disorder, current episode mixed, unspecified F31.60 [place] [address] [address] Sep, Bipolar disorder, current episode mixed, unspecified F31.60 [place] [id number] [place] [address] Sep, Bipolar disorder, in partial remission, most recent episode manic F31.73 ; 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 ; Extreme poverty Z59.5 and Non compliance with medical treatment Z91.19 [place] [address] [address] Aug, Bipolar disorder, in partial remission, most recent episode manic F31.73 ; 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 ; Extreme poverty Z59.5 and Non compliance with medical treatment Z91.19 [place] [address] [address] Aug, Bipolar disorder, in partial remission, most recent episode manic F31.73 ; 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 ; Extreme poverty Z59.5 and Non compliance with medical treatment Z91.19 [place] [address] [address] Aug, [place] [address] [address] July, Bipolar disorder, in partial remission, most recent episode manic F31.73 ; 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 ; Extreme poverty Z59.5 and Non compliance with medical treatment Z91.19 [place] [id number] [place] [address] July, Bipolar disorder, current episode mixed, unspecified F31.60 [place] [address] [address] July, Bipolar disorder, in partial remission, most recent episode manic F31.73 ; 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 ; Extreme poverty Z59.5 and Non compliance with medical treatment Z91.19 [place] [address] [place] [id number] [place] [address] July, alf current use of opiate analgesi c Z79.891 and Chronic pain G89.29 [facility] [address] [place] [id number] [place] [address] Jun, alf current use of opiate analgesi c Z79.891 and Bipolar 1 disorder F31.9 [place] [address] [address] Jun, [place] [address] [address] Jun, [place] [address] [address] Jun, [place] [address] [address] Jun, Bipolar disorder, in partial remission, most recent episode manic F31.73 ; 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 and Non compliance with medical treatment Z91.19 [place] [address] [address] May, Bipolar disorder, in partial remission, most recent episode manic F31.73 ; 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 and Non compliance with medical treatment Z91.19 [place] [address] [address] May, Bipolar disorder, in partial remission, most recent episode manic F31.73 [place] [address] [address] May, Diabetes E11.9 and Chronic pain G89.29 [place] [address] [address] May, [place] [address] [address] 08 May, 2015 Bipolar disorder, in partial remission, most recent episode manic F31.73 ; Non compliance with medical treatment Z91.19 and 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 [place] [address] [address] 08 May, 2015 Type 2 diabetes mellitus with complicati on E11.8 and Back pain M54.9 [place] [address] [address] May, Bipolar disorder, in partial remission, most recent episode manic F31.73 and 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 [place] [address] [address] Apr, [place] [address] [address] Apr, [place] [address] [address] Apr, [place] [address] [address] Apr, Diabetes E11.9 ; Irritable bowel syndrom e with diarrhea K58.0 and Lumbar radiculopathy M54.16 [place] [address] [address] Apr, Breast screening Z12.39 [place] [address] [address] 02 Apr, 2015 Bipolar disorder, in partial remission, most recent episode manic F31.73 ; Non compliance with medical treatment Z91.19 and 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 [place] [address] [address] Mar, Edema, unspecified type R60.9 and Type 2 diabetes mellitus with complication E11.8 [place] [address] [address] Mar, Bipolar disorder, in partial remission, most recent episode manic F31.73 ; Non compliance with medical treatment Z91.19 ; 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 and Extreme poverty Z59.5 [place] [address] [address] 14 Mar, 2015 Bipolar disorder, current episode mixed, unspecified F31.60 ; 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 ; Extreme poverty Z59.5 and Generalized anxiety disorder F41.1 [place] [address] [address] 12 Mar, 2015 Bipolar disorder, in partial remission, most recent episode manic F31.73 ; 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 and Extreme poverty Z59.5 [place] [address] [address] Feb, Bipolar disorder, in partial remission, most recent episode manic F31.73 ; Borderline intellectual functioning R41.83 and Extreme poverty Z59.5 [place] [address] [address] Feb, Bipolar disorder, in partial remission, most recent episode manic F31.73 ; 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 and Extreme poverty Z59.5 [place] [address] [address] Feb, [place] [address] [address] Jan, Type 2 diabetes mellitus with complicati on E11.8 and Petechiae R23.3 [place] [address] [address] Jan, Type 2 diabetes mellitus with complicati on E11.8 ; Edema, unspecified R60.9 ; Petechiae R23.3 and Diabetes E11.9 [place] [address] [address] 17 Jan, 2015 Bipolar disorder, in partial remission, most recent episode manic F31.73 ; 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 and Extreme poverty Z59.5 [place] [address] [address] Jan, Bipolar disorder, in partial remission, most recent episode manic F31.73 ; 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 and Extreme poverty Z59.5 [place] [address] [address] Dec, Bipolar disorder, in partial remission, most recent episode manic F31.73 [place] [address] [address] Dec, Edema, due to unspecified malnutrition t ype, unspecified edema R60.9 and Essential hypertension I10 [place] [address] [address] Dec, Bipolar disorder, in partial remission, most recent episode manic F31.73 [place] [address] [address] Nov, Bipolar I disorder, most recent episode (or current) mixed, unspecified 296.60 [place] [address] [address] Nov, Stress incontinence, female 625.6 ; Back pain 724.5 and Leg pain 729.5 [place] [address] [address] Nov, Generalized anxiety disorder 300.02 and Bipolar II disorder 296.89 [place] [address] [address] Nov, Bipolar I disorder, most recent episode (or current) mixed, unspecified 296.60 [place] [address] [address] Oct, [place] [address] [address] Oct, [place] [address] [address] Oct, [address] [address] Oct, Bipolar I disorder, most recent episode (or current) mixed, unspecified 296.60 [place] [address] [address] Sep, Diabetes 250.00 [facility] [address] [place] [id number] [place] [address] Sep, Bipolar I disorder, most recent episode (or current) mixed, unspecified 296.60 [facility] [address] [address] Sep, [facility] [address] [address] Sep, [facility] [address] [address] Sep, Bipolar I disorder, most recent episode (or current) mixed, unspecified 296.60 [facility] [address] [address] Sep, Bipolar I disorder, most recent episode (or current) mixed, unspecified 296.60 [facility] [address] [address] Sep, [facility] [address] [address] Sep, Anxiety 300.00 ; Diabetes 250.00 and Hyp erlipidemia 272.4 [facility] [address] [address] Aug, [facility] [address] [address] Aug, [facility] [address] [address] Aug, [facility] [address] [address] Aug, Bipolar I disorder, most recent episode (or current) mixed, unspecified 296.60 [facility] [address] [address] Aug, Generalized anxiety disorder 300.02 and Bipolar II disorder 296.89 [facility] [address] [address] July, Bipolar I disorder, most recent episode (or current) mixed, unspecified 296.60 [facility] [id number] [place] [address] July, Cough 786.2 [facility] [id number] [place] [address] July, Bipolar I disorder, most recent episode (or current) mixed, unspecified 296.60 [facility] [id number] [place] [address] Jun, Diabetes 250.00 [facility] [id number] [place] [address] Jun, [facility] [id number] [place] [address] Jun, [facility] [id number] [place] [address] May, [facility] [id number] [place] [address] May, [facility] [id number] [place] [address] May, [facility] [id number] [place] [address] May, [facility] [id number] [place] [address] May, [facility] [id number] [place] [address] May, [facility] [id number] [place] [address] Apr, [facility] [id number] [place] [address] Apr, [facility] [id number] [place] [address] Apr, [facility] [id number] [place] [address] Apr, [facility] [place] [facility] [address] [id number] [place] [address] Apr, [facility] [place] [facility] [address] [id number] [place] [address] Apr, [facility] [place] [facility] [address] [id number] [place] [address] Apr, [facility] [place] [facility] [address] [id number] [place] [address] Apr, [facility] [place] [facility] [address] [id number] [place] [address] Mar, [facility] [place] [facility] [address] [id number] [place] [address] Mar, [facility] [place] [facility] [address] [id number] [place] [address] Mar, [facility] [place] [facility] [address] [id number] [place] [address] Mar, [facility] [place] [facility] [address] [id number] [place] [address] Mar, [facility] [place] [facility] [address] [id number] [place] [address] Mar, [facility] [place] [facility] [address] [id number] [place] [address] Mar, [facility] [place] [facility] [address] [id number] [place] [address] Mar, [facility] [place] [facility] [address] [id number] [place] [address] Feb, [facility] [place] [facility] [address] [id number] [place] [address] Feb, [facility] [place] [facility] [address] [id number] [place] [address] Feb, [facility] [place] [facility] [address] [id number] [place] [address] Feb, [facility] [place] [facility] [address] [id number] [place] [address] Feb, [facility] [place] [facility] [address] [facility] [id number] [place] [address] Feb, [facility] [place] [facility] [address] [id number] [place] [address] Feb, [facility] [place] [facility] [address] [id number] [place] [address] Feb, [facility] [place] [facility] [address] [id number] [place] [address] Feb, [facility] [place] [facility] [address] [id number] [place] [address] Feb, [facility] [place] [facility] [address] [id number] [place] [address] Jan, [facility] [place] [facility] [address] [id number] [place] [address] Jan, [facility] [place] [facility] [address] [id number] [place] [address] Jan, [facility] [place] [facility] [address] [id number] [place] [address] Jan, [facility] [place] [facility] [address] [id number] [place] [address] Jan, [facility] [place] [facility] [address] [id number] [place] [address] Jan, [facility] [place] [facility] [address] [id number] [place] [address] Jan, [facility] [place] [facility] [address] [id number] [place] [address] Jan, [facility] [place] [facility] [address] [id number] [place] [address] Jan, [facility] [place] [facility] [address] [id number] [place] [address] Jan, [facility] [place] [facility] [address] [id number] [place] [address] Jan, [facility] [place] [facility] [address] [id number] [place] [address] Jan, [facility] [place] [facility] [address] [id number] [place] [address] Jan, [facility] [place] [facility] [address] [id number] [place] [address] Jan, [facility] [place] [facility] [address] [id number] [place] [address] Jan, [facility] [place] [facility] [address] [id number] [place] [address] Dec, [facility] [place] [facility] [address] [id number] [place] [address] Dec, [facility] [place] [facility] [address] [id number] [place] [address] Dec, [facility] [place] [facility] [address] [id number] [place] [address] Dec, [facility] [place] [facility] [address] [id number] [place] [address] Dec, [facility] [place] [facility] [address] [id number] [place] [address] Dec, [facility] [place] [facility] [address] [id number] [place] [address] Dec, [facility] [place] [facility] [address] [id number] [place] [address] Dec, [facility] [place] [facility] [address] [id number] [place] [address] Nov, 2013 [facility] [place] [facility] [address] [id number] [place] [address] 25 Nov, 2013 [facility] [place] [facility] [address] [id number] [place] [address] 10 Nov, 2013 [facility] [place] [facility] [address] [id number] [place] [address] 10 Nov, 2013 [facility] [place] [facility] [address] [id number] [place] [address] 08 Sep, 2013 [facility] [place] [facility] [address] [id number] [place] [address] 08 Sep, 2013 [facility] [place] [facility] [address] [id number] [place] [address] 08 Nov, 2013 [facility] [place] [facility] [address] [id number] [place] [address] 08 Nov, 2013 [facility] [place] [facility] [address] [id number] [place] [address] 08 Nov, 2013 [facility] [place] [facility] [address] [id number] [place] [address] 08 Nov, 2013 [facility] [place] [facility] [address] [id number] [place] [address] 04 Nov, 2013 [facility] [place] [facility] [address] [id number] [place] [address] 04 Nov, 2013 [facility] [place] [facility] [address] [id number] [place] [address] Nov, 2013 [facility] [place] [facility] [address] [id number] [place] [address] Nov, 2013 [facility] [place] [facility] [address] [id number] [place] [address] Nov, 2013 [facility] [place] [facility] [address] [id number] [place] [address] Oct, [facility] [place] [facility] [address] [id number] [place] [address] Oct, [facility] [place] [facility] [address] [id number] [place] [address] Oct, [facility] [place] [facility] [address] [id number] [place] [address] Oct, [facility] [place] [facility] [address] [id number] [place] [address] Oct, [facility] [place] [facility] [address] [id number] [place] [address] Oct, [facility] [place] [facility] [address] [id number] [place] [address] Oct, [facility] [place] [facility] [address] [id number] [facility] [address] Oct, [facility] [place] [facility] [address] [facility] [id number] [facility] [address] Oct, [facility] [place] [facility] [address] [facility] [id number] [facility] [place] [address] Oct, [facility] [place] [facility] [address] [facility] [id number] [place] [address] Oct, [facility] [place] [facility] [address] [facility] [id number] [facility] [address] Oct, [facility] [place] [facility] [address] [facility] [id number] [place] [address] Oct, [facility] [place] [facility] [address] [facility] [id number] [place] [address] Oct, [facility] [place] [facility] [address] [id number] [facility] [address] Sep, [facility] [place] [facility] [address] [facility] [id number] [facility] [place] [address] Sep, [facility] [place] [facility] [address] [facility] [id number] [facility] [address] Sep, [facility] [place] [facility] [address] [facility] [id number] [place] [address] Sep, 2013 [facility] [place] [facility] [address] [id number] [place] [address] Sep, 2013 [facility] [place] [facility] [address] [facility] [id number] [place] [address] Sep, 2013 [facility] [place] [facility] [address] [facility] [id number] [place] [address] Sep, [facility] [place] [facility] [address] [facility] [id number] [place] [address] Sep, [facility] [place] [facility] [address] [facility] [id number] [facility] [address] Aug, [facility] [place] [facility] [address] [facility] [id number] [place] [address] Aug, [facility] [place] [facility] [address] [id number] [place] [address] Aug, [facility] [place] [facility] [address] [id number] [place] [address] Aug, [facility] [place] [facility] [address] [id number] [place] [address] Aug, [facility] [place] [facility] [address] [id number] [place] [address] Aug, [facility] [place] [facility] [address] [id number] [place] [address] Aug, [facility] [place] [facility] [address] [id number] [place] [address] Aug, [facility] [place] [facility] [address] [id number] [place] [address] July, [facility] [place] [facility] [address] [id number] [place] [address] July, [facility] [place] [facility] [address] [id number] [place] [address] July, [facility] [place] [facility] [address] [id number] [place] [address] July, [facility] [place] [facility] [address] [id number] [place] [address] July, [facility] [place] [facility] [address] [id number] [place] [address] July, [facility] [place] [facility] [address] [id number] [place] [address] July, [facility] [place] [facility] [address] [id number] [place] [address] July, [facility] [place] [facility] [address] [id number] [place] [address] Jun, [facility] [id number] [place] [address] Jun, [facility] [address] [facility] [id number] [place] [address] Jun, [facility] [id number] [place] [address] Jun, [facility] [id number] [place] [address] Jun, [facility] [id number] [place] [address] Jun, [facility] [id number] [place] [address] Jun, [facility] [address] [id number] [place] [address] Jun, [facility] [id number] [place] [address] Jun, [facility] [address] [id number] [place] [address] Jun, [facility] [address] [id number] [place] [address] Jun, [facility] [id number] [place] [address] Jun, [facility] [address] [id number] [place] [address] May, [facility] [id number] [place] [address] May, [facility] [id number] [place] [address] May, [facility] [address] [facility] [id number] [place] [address] May, [facility] [address] [id number] [place] [address] May, [facility] [id number] [place] [address] May, [facility] [address] [id number] [place] [address] May, [facility] [address] [facility] [id number] [facility] [place] [address] May, [facility] [address] [facility] [id number] [facility] [place] [address] May, [facility] [address] [facility] [id number] [facility] [place] [address] May, [facility] [address] [facility] [id number] [facility] [place] [address] May, [facility] [address] [facility] [id number] [facility] [place] [address] May, [facility] [id number] [facility] [place] [address] May, [facility] [id number] [facility] [place] [address] May, [facility] [address] [id number] [facility] [place] [address] Apr, [facility] [address] [facility] [id number] [facility] [place] [address] Apr, [facility] [id number] [facility] [place] [address] Apr, [facility] [id number] [place] [address] Apr, [facility] [address] [id number] [place] [address] Apr, [facility] [address] [facility] [id number] [facility] [place] [address] Apr, [facility] [address] [id number] [place] [address] Mar, [facility] [address] [facility] [id number] [place] [address] Mar, [facility] [address] [id number] [place] [address] Mar, [facility] [address] [id number] [place] [address] Mar, [facility] [address] [id number] [place] [address] Mar, [facility] [address] [id number] [place] [address] Mar, [facility] [address] [id number] [place] [address] Mar, [facility] [address] [id number] [place] [address] Mar, [facility] [address] [id number] [place] [address] Mar, [facility] [address] [id number] [place] [address] Mar, [facility] [address] [id number] [place] [address] Mar, [facility] [address] [id number] [place] [address] Mar, [facility] [address] [id number] [place] [address] Mar, [facility] [address] [id number] [place] [address] Mar, [facility] [address] [id number] [place] [address] Feb, [facility] [address] [id number] [place] [address] Feb, [facility] [address] [id number] [place] [address] Feb, [facility] [address] [id number] [place] [address] Feb, [facility] [address] [id number] [place] [address] Feb, [facility] [address] [id number] [place] [address] Feb, [facility] [address] [id number] [place] [address] Feb, 2012 [facility] [address] [id number] [place] [address] Feb, 2012 [facility] [address] [id number] [place] [address] Feb, 2012 [facility] [address] [id number] [place] [address] Feb, 2012 [facility] [address] [id number] [place] [address] Feb, 2012 [facility] [address] [id number] [place] [address] Feb, 2012 [facility] [address] [id number] [place] [address] Feb, 2012 [facility] [address] [id number] [place] [address] Feb, 2012 [facility] [address] [id number] [place] [address] Feb, 2012 [facility] [address] [id number] [place] [address] Feb, 2012 [facility] [address] [id number] [place] [address] 24 Dec, 2012 [facility] [address] [id number] [place] [address] 24 Dec, 2012 [facility] [address] [id number] [place] [address] Dec, 2012 [facility] [address] [id number] [place] [address] Dec, 2012 [facility] [address] [id number] [place] [address] Dec, 2012 [facility] [address] [id number] [place] [address] Dec, 2012 [facility] [address] [id number] [place] [address] 14 Dec, 2012 [facility] [address] [facility] [id number] [place] [address] 14 Dec, 2012 [facility] [address] [facility] [facility] [id number] [place] [address] 10 Dec, 2012 [facility] [address] [id number] [place] [address] 10 Dec, 2012 [facility] [address] [facility] [id number] [place] [address] 10 Dec, 2012 [facility] [address] [facility] [id number] [facility] [address] 10 Dec, 2012 [facility] [address] [id number] [place] [address] 03 Dec, 2012 [facility] [address] [id number] [place] [address] 25 Nov, 2012 [facility] [address] [id number] [place] [address] 20 Nov, 2012 [facility] [address] [facility] [id number] [place] [address] 18 Nov, 2012 [facility] [address] [id number] [place] [address] 16 Nov, 2012 [facility] [address] [id number] [place] [address] 12 Nov, 2012 [facility] [address] [id number] [place] [address] 11 Nov, 2012 [facility] [address] [facility] [id number] [place] [address] 05 Nov, 2012 [facility] [address] [id number] [place] [address] 15 Oct, 2012 [facility] [address] [facility] [id number] [place] [address] Oct, [facility] [address] [id number] [place] [address] 24 Sep, 2012 [facility] [address] [id number] [facility] [address] 23 Sep, 2012 [facility] [address] [id number] [facility] [address] Sep, [facility] [address] [facility] [id number] [facility] [address] 17 Sep, 2012 [facility] [address] [id number] [place] [address] 15 Sep, 2012 [facility] [address] [facility] [id number] [facility] [address] Sep, [facility] [address] [facility] [id number] [facility] [address] Sep, [facility] [address] [id number] [place] [address] Aug, [facility] [address] [id number] [place] [address] Aug, [facility] [address] [id number] [place] [address] 16 Aug, 2012 [facility] [address] [facility] [id number] [place] [address] Aug, [facility] [address] [id number] [place] [address] Aug, [facility] [address] [id number] [place] [address] Aug, [facility] [address] [id number] [place] [address] Aug, [facility] [address] [facility] [facility] [id number] [place] [address] Aug, [facility] [address] [id number] [facility] [address] July, [facility] [address] [facility] [id number] [place] [address] July, [facility] [address] [id number] [place] [address] July, [facility] [address] [facility] [id number] [place] [address] July, [facility] [address] [id number] [place] [address] July, [facility] [address] [id number] [place] [address] Jun, [facility] [address] [id number] [place] [address] May, [facility] [address] [id number] [place] [address] May, [facility] [address] [id number] [place] [address] May, [facility] [address] [id number] [place] [address] Apr, [facility] [address] [id number] [place] [address] Apr, [facility] [address] [id number] [place] [address] Apr, [facility] [address] [id number] [place] [address] Mar, [facility] [address] [id number] [place] [address] Mar, [facility] [address] [id number] [place] [address] Mar, [facility] [address] [id number] [place] [address] Mar, [facility] [address] [id number] [place] [address] Mar, [facility] [address] [id number] [place] [address] Mar, [facility] [address] [id number] [place] [address] Mar, [facility] [address] [id number] [place] [address] Feb, [facility] [address] [id number] [place] [address] Feb, [facility] [address] [id number] [place] [address] Feb, [facility] [address] [id number] [place] [address] Feb, [facility] [address] [id number] [place] [address] Feb, [facility] [address] [id number] [place] [address] Feb, [facility] [address] [id number] [place] [address] Feb, [facility] [address] [id number] [place] [address] Feb, [facility] [address] [id number] [place] [address] Jan, [facility] [address] [id number] [place] [address] Jan, [facility] [address] [id number] [place] [address] Jan, [facility] [address] [id number] [place] [address] Jan, [facility] [address] [id number] [place] [address] Jan, [facility] [address] [id number] [place] [address] Jan, [facility] [address] [id number] [place] [address] Jan, [facility] [address] [id number] [place] [address] Jan, [facility] [address] [id number] [place] [address] Jan, [facility] [address] [id number] [place] [address] Jan, [facility] [address] [id number] [place] [address] Jan, [facility] [address] [id number] [place] [address] Jan, [facility] [address] [id number] [place] [address] Jan, [facility] [address] [id number] [place] [address] Jan, [facility] [address] [id number] [place] [address] Jan, [facility] [address] [id number] [place] [address] Jan, [facility] [address] [id number] [place] [address] Dec, [facility] [address] [id number] [place] [address] Dec, [facility] [address] [id number] [place] [address] Dec, [facility] [address] [id number] [place] [address] Dec, [facility] [address] [id number] [place] [address] Dec, [facility] [address] [id number] [place] [address] Dec, [facility] [address] [id number] [place] [address] Dec, [facility] [address] [id number] [place] [address] Dec, [facility] [address] [id number] [place] [address] Dec, [facility] [address] [id number] [place] [address] Dec, [facility] [address] [id number] [place] [address] 18 Nov, 2011 [facility] [address] [id number] [place] [address] Nov, [facility] [address] [id number] [place] [address] 24 Oct, 2011 [facility] [address] [id number] [place] [address] Oct, [facility] [address] [facility] [id number] [place] [address] Oct, [facility] [address] [id number] [place] [address] Oct, [facility] [address] [id number] [place] [address] Oct, [facility] [address] [id number] [place] [address] Oct, [facility] [address] [id number] [place] [address] Oct, [facility] [address] [id number] [place] [address] Sep, [facility] [address] [id number] [place] [address] Aug, [facility] [address] [id number] [place] [address] Aug, [facility] [address] [id number] [place] [address] Aug, [facility] [address] [id number] [place] [address] Aug, [facility] [address] [id number] [place] [address] Aug, [facility] [address] [id number] [place] [address] July, [facility] [address] [id number] [place] [address] July, [facility] [address] [facility] [id number] [facility] [address] July, [facility] [address] [id number] [place] [address] Jun, [facility] [address] [id number] [place] [address] Jun, [facility] [address] [id number] [place] [address] Jun, [facility] [address] [id number] [facility] [address] Jun, [facility] [address] [id number] [place] [address] 30 May, 2011 [facility] [address] [id number] [place] [address] 30 May, 2011 [facility] [address] [id number] [place] [address] May, [facility] [address] [id number] [facility] [address] May, [facility] [address] [id number] [place] [address] May, [facility] [address] [id number] [place] [address] May, [facility] [address] [id number] [place] [address] May, [facility] [address] [id number] [place] [address] May, [facility] [address] [id number] [place] [address] 08 May, 2011 [facility] [address] [id number] [place] [address] 05 May, 2011 [facility] [address] [id number] [place] [address] May, [facility] [address] [id number] [place] [address] May, [facility] [address] [id number] [place] [address] Mar, [facility] [address] [id number] [place] [address] Mar, [facility] [address] [id number] [place] [address] 28 Feb, 2011 [facility] [address] [id number] [place] [address] Feb, [facility] [address] [id number] [place] [address] Feb, [facility] [address] [id number] [place] [address] 15 Feb, 2011 [facility] [address] [id number] [place] [address] Feb, [facility] [address] [id number] [place] [address] Feb, [facility] [address] [id number] [place] [address] Feb, [facility] [address] [id number] [place] [address] Jan, [facility] [address] [id number] [place] [address] Jan, [facility] [address] [id number] [place] [address] Jan, [facility] [address] [id number] [place] [address] 17 Jan, 2011 [facility] [address] [id number] [place] [address] 07 Jan, 2011 [facility] [address] [id number] [place] [address] Jan, [facility] [address] [id number] [place] [address] Dec, [facility] [address] [id number] [place] [address] 27 Dec, 2010 [facility] [address] [id number] [place] [address] Dec, [facility] [address] [id number] [place] [address] July, [facility] [address] [id number] [place] [address] July, [facility] [address] [id number] [place] [address] Feb, [facility] [address] [id number] [place] [address] Jan, [facility] [address] [id number] [place] [address] Dec, [facility] [address] [id number] [place] [address] Dec, [facility] [address] [id number] [place] [address] Sep, [facility] [address] [id number] [place] [address] Aug, [facility] [address] [id number] [place] [address] Jun, [facility] [address] [id number] [place] [address] Jun, [facility] [address] [id number] [place] [address] Jan, [facility] [address] [id number] [place] [address] Jan, [facility] [address] [id number] [place] [address] 05 Jan, 2009 [facility] [address] [id number] [place] [address] Jan, [facility] [address] [id number] [place] [address] Dec, [facility] [address] [id number] [place] [address] Dec, [facility] [address] [id number] [place] [address] Dec, [facility] [address] [id number] [place] [address] Nov, [facility] [address] [address] July, [facility] [id number] [place] [address] May, [facility] [id number] [place] [address] Apr, [facility] [id number] [place] [address] Feb, [facility] [id number] [place] [address] Dec, IMMUNIZATIONS No Known Immunizations SOCIAL HISTORY Never Assessed REASON FOR VISIT PLAN OF CARE VITAL SIGNS Height 62 in 2013-06-05 Weight 209.44 lbs 2013-06-05 Temperature 97.9 degrees Fahrenheit 2013-06-05 Heart Rate 70 bpm 2013-06-05 Respiratory Rate 16 2013-06-05 MEDICATIONS Unknown Medications RESULTS No Results PROCEDURES Procedure Date Ordered Result Body Site COMPLETE CBC W/AUTO DIFF WBC June 05, 2013 ASSAY OF LIPASE June 05, 2013 GLYCATED HEMOGLOBIN TEST June 05, 2013 MICROALBUMIN, SEMIQUANT June 05, 2013 MICROALBUMIN, QUANTITATIVE June 05, 2013 LIPID PANEL June 05, 2013 COMPREHEN METABOLIC PANEL June 05, 2013 URINALYSIS, AUTO, W/O SCOPE June 05, 2013 VENIPUNCT, ROUTINE* June 05, 2013 INSTRUCTIONS MEDICATIONS ADMINISTERED No Known [...]
--- OUTSIDE RECORDS SUMMARY | 2019-06-22 19:43 | XMS REPORT ---
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 Active 03278343 Problem Irritable bowel syndrome with diarrhea K58.0 Active 102793601 Problem Diabetes E11.9 Active 248257165 Problem Bipolar 1 disorder F31.9 Active 3 82764624 Problem Lumbar radiculopathy M54.16 Active 816113696 Problem Hyperlipidemia, unspecified E78.5 Ac tive 70894774 Problem Acute bilateral low back pain with right-sided sciatica M54.41 Active 710381841 Problem New daily persistent headache G44.52 Active 047089981 Problem Insulin long-term use Z79.4 Active 789199588 Problem Type 2 diabetes mellitus with complication E11.8 Active 736786812 Problem Post laminectomy syndrome M96.1 Acti ve 37125165 Problem Rhinosinusitis J32.9 Active 57621 000 Problem 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 Active 010976489 Problem Eye exam normal Z01.00 Active 2438 11804 Problem Type 2 diabetes mellitus with hyperglycemia E11.65 Active 72526356 Problem Lumbago with sciatica, left side M54.42 Active 955668868 Problem Other chronic pain G89.29 Active 8 8911414 Problem Hypertriglyceridemia E78.1 Active [id number] ALLERGIES No Information ENCOUNTERS Encounter Location Date Diagnosis [facility] [address] [id number] [place] [address] May, [facility] [address] [address] Apr, [facility] [address] [address] Apr, [facility] [address] [address] Mar, Bipolar 1 disorder F31.9 ; Borderline in tellectual functioning R41.83 and Extreme poverty Z59.5 [facility] [address] [address] Mar, Exercise counseling Z71.82 [place] [address] [address] Mar, [place] [address] [address] Mar, Bipolar disorder, in partial remission, most recent episode manic F31.73 and 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 [facility] [address] [address] Mar, [facility] [address] [address] Mar, Exercise counseling Z71.82 [place] [address] [address] Feb, Bipolar 1 disorder F31.9 ; Borderline in tellectual functioning R41.83 and Extreme poverty Z59.5 [place] [address] [place] [id number] [place] [address] Feb, [facility] [address] [address] Feb, Type 2 diabetes mellitus with complicati on E11.8 [facility] [address] [facility] [id number] [address] [place] [address] Feb, Acute low back pain without sciatica, unspecified back pain laterality M54.5 [place] [address] [address] Feb, Bipolar 1 disorder F31.9 ; Borderline in tellectual functioning R41.83 and Extreme poverty Z59.5 [facility] [address] [address] Jan, Bipolar 1 disorder F31.9 ; Borderline in tellectual functioning R41.83 and Extreme poverty Z59.5 [facility] [address] [place] [id number] [place] [address] Jan, [facility] [address] [address] Jan, Type 2 diabetes mellitus with complicati on E11.8 [place] [address] [address] Jan, Type 2 diabetes mellitus with complicati on E11.8 ; Dysuria R30.0 and Diarrhea, unspecified type R19.7 [place] [address] [address] Jan, Bipolar 1 disorder F31.9 ; Borderline in tellectual functioning R41.83 and Extreme poverty Z59.5 [place] [address] [address] Dec, [facility] [address] [address] Dec, [facility] [address] [address] Dec, [facility] [address] [address] Dec, [facility] [address] [address] Dec, Rhinosinusitis J32.9 [facility] [address] [address] Dec, [facility] [address] [address] Dec, Bipolar 1 disorder F31.9 ; Borderline in tellectual functioning R41.83 and Extreme poverty Z59.5 [place] [address] [address] Dec, Type 2 diabetes mellitus with complicati on E11.8 and Type 2 diabetes mellitus with hyperglycemia E11.65 [place] [address] [address] Dec, [place] [address] [address] Dec, Type 2 diabetes mellitus with complicati on E11.8 ; Insulin long-term use Z79.4 ; Hyperglycemia R73.9 and Yeast infection B37.9 [place] [address] [address] Dec, Encounter for immunization Z23 [place] [address] [address] Nov, [place] [address] [address] Nov, Bipolar 1 disorder F31.9 ; Borderline in tellectual functioning R41.83 and Extreme poverty Z59.5 [place] [address] [address] Nov, [place] [address] [address] Nov, [place] [address] [address] Nov, Borderline intellectual functioning R41. 83 and Bipolar disorder, in partial remission, most recent episode manic F31.73 [facility] [address] [facility] [id number] [address] [place] [address] Nov, Epigastric abdominal pain R1 0.13 [place] [address] [address] Nov, Bipolar 1 disorder F31.9 ; Borderline in tellectual functioning R41.83 and Extreme poverty Z59.5 [facility] [address] [place] [id number] [place] [address] Oct, Dysuria R30.0 and Acute cyst itis without hematuria N30.00 [facility] [address] [place] [id number] [place] [address] Oct, [facility] [address] [address] Oct, [facility] [address] [address] Oct, Bipolar 1 disorder F31.9 ; Borderline in tellectual functioning R41.83 and Extreme poverty Z59.5 [place] [address] [address] Oct, [facility] [address] [address] Oct, [facility] [address] [address] Oct, Bipolar disorder, in partial remission, most recent episode manic F31.73 and 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 [place] [address] [address] Oct, Bipolar 1 disorder F31.9 ; Borderline in tellectual functioning R41.83 and Extreme poverty Z59.5 [place] [address] [place] [id number] [place] [address] Oct, Diarrhea, unspecified type R19.7 [facility] [address] [facility] [place] [id number] Sep, Dental examination Z01.20 and Dental car ies K02.9 [facility] [address] [place] [address] Sep, Mouth pain K13.79 [facility] [address] [address] Sep, [facility] [address] [address] Sep, Bipolar 1 disorder F31.9 ; Borderline in tellectual functioning R41.83 and Extreme poverty Z59.5 [place] [address] [address] Sep, [place] [address] [address] Sep, [place] [address] [address] Sep, Diabetes E11.9 ; Hyperglycemia R73.9 ; L eliseo term current use of insulin Z79.4 and Diarrhea, unspecified type R19.7 [place] [address] [address] Sep, [place] [address] [address] Sep, Bipolar 1 disorder F31.9 ; Borderline in tellectual functioning R41.83 and Extreme poverty Z59.5 [place] [address] [address] Sep, [place] [address] [address] Sep, [place] [address] [address] Aug, Bipolar 1 disorder F31.9 ; Borderline in tellectual functioning R41.83 and Extreme poverty Z59.5 [place] [address] [address] Aug, Exercise counseling Z71.82 [place] [address] [address] Aug, Bipolar 1 disorder F31.9 ; Borderline in tellectual functioning R41.83 and Extreme poverty Z59.5 [place] [address] [address] Aug, Borderline intellectual functioning R41. 83 and Bipolar disorder, in partial remission, most recent episode manic F31.73 [facility] [address] [address] Aug, Low back pain M54.5 [facility] [address] [address] Aug, Borderline intellectual functioning R41. 83 and Bipolar disorder, in partial remission, most recent episode manic F31.73 [facility] [address] [address] July, Acute superficial gastritis without hemo rrhage K29.00 ; Low back pain M54.5 and Other chronic pain G89.29 [place] [address] [address] July, [place] [address] [address] July, [place] [address] [address] Jun, [facility] [address] [facility] [id number] [address] [place] [address] Jun, Bilateral lower extremity ed epi R60.0 [place] [address] [address] Jun, Borderline intellectual functioning R41. 83 and Bipolar disorder, in partial remission, most recent episode manic F31.73 [place] [address] [address] Jun, [place] [address] [address] May, Bronchitis J40 [place] [address] [address] May, Screening for breast cancer Z12.31 and E ncounter for immunization Z23 [facility] [address] [address] May, Bipolar 1 disorder F31.9 ; Borderline in tellectual functioning R41.83 and Extreme poverty Z59.5 [place] [address] [address] Apr, [place] [address] [address] 07 Apr, 2018 Bipolar 1 disorder F31.9 ; Borderline in tellectual functioning R41.83 and Extreme poverty Z59.5 [place] [address] [address] 05 Apr, 2018 Irritable bowel syndrome with diarrhea K 58.0 and Dental abscess K04.7 [place] [address] [address] Mar, [place] [address] [address] Mar, [place] [address] [address] Mar, Bipolar 1 disorder F31.9 ; Borderline in tellectual functioning R41.83 and Extreme poverty Z59.5 [place] [address] [address] Mar, Hypertriglyceridemia E78.1 [place] [address] [address] Mar, Borderline intellectual functioning R41. 83 and Bipolar disorder, in partial remission, most recent episode manic F31.73 [place] [address] [address] Mar, Bipolar 1 disorder F31.9 ; Borderline in tellectual functioning R41.83 and Extreme poverty Z59.5 [place] [address] [address] Feb, Generalized abdominal pain R10.84 and Di arrhea, unspecified type R19.7 [place] [address] [address] Feb, [place] [address] [address] Feb, Myalgia M79.10 and Nausea R11.0 [place] [address] [address] Feb, Bipolar 1 disorder F31.9 ; Borderline in tellectual functioning R41.83 and Extreme poverty Z59.5 [place] [address] [address] Feb, [place] [address] [place] [address] Feb, Diabetes E11.9 ; Hyperglycemia R73.9 and Diarrhea, unspecified R19.[address] [address] Feb, Diarrhea, unspecified type R19.7 ; Abdom inal pain R10.9 and Encounter for immunization Z23 [place] [address] [address] Jan, Bipolar 1 disorder F31.9 ; Borderline in tellectual functioning R41.83 and Extreme poverty Z59.5 [place] [address] [address] Dec, Bipolar 1 disorder F31.9 ; Borderline in tellectual functioning R41.83 and Extreme poverty Z59.5 [place] [address] [address] Nov, [address] [address] Nov, Hypertriglyceridemia E78.1 [place] [address] [address] Nov, Bipolar 1 disorder F31.9 ; Borderline in tellectual functioning R41.83 and Extreme poverty Z59.5 [place] [address] [address] Nov, Type 2 diabetes mellitus with complicati on E11.[address] [place] [address] 18 Nov, 2017 Borderline intellectual functioning R41. 83 and Bipolar disorder, in partial remission, most recent episode manic F31.73 [place] [address] [address] 12 Nov, 2017 Type 2 diabetes mellitus with complicati on E11.8 [place] [address] [address] Nov, Bipolar 1 disorder F31.9 ; Borderline in tellectual functioning R41.83 and Extreme poverty Z59.5 [place] [address] [address] Nov, Type 2 diabetes mellitus with complicati on E11.8 ; Pain of left upper arm M79.622 ; Pain in right upper arm M79.621 ; Hyperglycemia R73.9 ; Lumbago with sciatica, left side M54.42 and Other chronic pain G89.29 [place] [address] [address] Oct, Bipolar 1 disorder F31.9 ; Borderline in tellectual functioning R41.83 and Extreme poverty Z59.5 [place] [address] [address] Oct, Type 2 diabetes mellitus with hyperglyce didi E11.65 ; jail current use of insulin Z79.4 and Other acute gastritis without hemorrhage K29.00 [place] [address] [address] Oct, Bipolar 1 disorder F31.9 ; Borderline in tellectual functioning R41.83 and Extreme poverty Z59.5 [place] [address] [address] Sep, Diarrhea, unspecified R19.7 and Vomiting , unspecified R11.10 [place] [address] [address] Aug, Type 2 diabetes mellitus with complicati on E11.8 [place] [address] [place] [id number] [place] [address] Aug, [facility] [address] [address] Aug, Bipolar 1 disorder F31.9 ; Borderline in tellectual functioning R41.83 and Extreme poverty Z59.5 [place] [address] [place] [id number] [place] [address] Aug, Borderline intellectual functioning R41. 83 and Bipolar disorder, in partial remission, most recent episode manic F31.73 [place] [address] [address] Aug, Bipolar 1 disorder F31.9 [place] [address] [address] Aug, [place] [address] [address] Aug, [place] [address] [address] Aug, Bipolar 1 disorder F31.9 ; Borderline in tellectual functioning R41.83 and Extreme poverty Z59.5 [place] [address] [place] [id number] [place] [address] July, Type 2 diabetes mellitus with complicati on E11.8 [place] [address] [place] [id number] [place] [address] July, Bipolar 1 disorder F31.9 ; Borderline in tellectual functioning R41.83 and Extreme poverty Z59.5 [place] [address] [place] [id number] [place] [address] Jun, Bipolar 1 disorder F31.9 ; Borderline in tellectual functioning R41.83 and Extreme poverty Z59.5 [place] [address] [place] [address] [place] [address] Jun, Bipolar 1 disorder F31.9 ; Borderline in tellectual functioning R41.83 and Extreme poverty Z59.5 [place] [address] [address] Jun, Bipolar 1 disorder F31.9 ; Borderline in tellectual functioning R41.83 and Extreme poverty Z59.5 [place] [address] [address] May, Urinary tract infection without hematuri a, site unspecified N39.0 [place] [address] [address] May, Bipolar 1 disorder F31.9 ; Borderline in tellectual functioning R41.83 and Extreme poverty Z59.5 [place] [address] [address] Apr, Diabetes E11.9 and Breast cancer screeni ng Z12.31 [place] [address] [address] Apr, Bipolar 1 disorder F31.9 and 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 [place] [address] [address] Mar, Bipolar 1 disorder F31.9 ; Borderline in tellectual functioning R41.83 and Extreme poverty Z59.5 [place] [address] [address] Mar, New daily persistent headache G44.52 ; L eg pain 729.5 and History of carpal tunnel release Z98.890 [place] [address] [address] Mar, Hyperlipidemia, unspecified E78.5 [place] [address] [address] Mar, Bipolar 1 disorder F31.9 ; Borderline in tellectual functioning R41.83 and Extreme poverty Z59.5 [place] [address] [address] Feb, Bipolar 1 disorder F31.9 ; Borderline in tellectual functioning R41.83 and Extreme poverty Z59.5 [place] [address] [address] Feb, Diabetes E11.9 [place] [address] [address] Feb, Viral syndrome B34.9 [place] [address] [address] Jan, Other viral agents as the cause of disea ses classified elsewhere B97.89 and Acute upper respiratory infection, unspecified J06.9 [place] [address] [address] Jan, Bipolar 1 disorder F31.9 and Borderline intellectual functioning R41.[address] [address] Jan, Bipolar 1 disorder F31.9 ; Borderline in tellectual functioning R41.83 and Extreme poverty Z59.5 [place] [address] [address] Dec, Diabetes E11.9 [place] [address] [address] Dec, Diabetes E11.9 and Encounter for immuniz ation Z23 [address] [address] Dec, Bipolar 1 disorder F31.9 ; Borderline in tellectual functioning R41.83 and Extreme poverty Z59.5 [place] [address] [address] Dec, Back pain M54.9 [place] [address] [address] Nov, [address] [address] 06 Nov, 2016 Bipolar 1 disorder F31.9 ; Borderline in tellectual functioning R41.83 and Extreme poverty Z59.5 [place] [address] [address] Nov, Bipolar 1 disorder F31.9 ; Borderline in tellectual functioning R41.83 and Extreme poverty Z59.5 [place] [address] [address] Oct, Borderline intellectual functioning R41. 83 and Bipolar 1 disorder F31.9 [place] [address] [address] Oct, Bipolar 1 disorder F31.9 ; Borderline in tellectual functioning R41.83 and Extreme poverty Z59.5 [place] [address] [address] Oct, Back pain M54.9 [place] [address] [address] Oct, Borderline intellectual functioning R41. 83 and Type 2 diabetes mellitus with complication E11.8 [place] [address] [address] Sep, Bipolar 1 disorder F31.9 ; Borderline in tellectual functioning R41.83 and Extreme poverty Z59.5 [place] [address] [address] Sep, Borderline intellectual functioning R41. 83 and Bipolar 1 disorder F31.9 [place] [address] [address] Sep, Bipolar 1 disorder F31.9 ; Borderline in tellectual functioning R41.83 and Extreme poverty Z59.5 [place] [address] [address] Aug, Diabetes E11.9 ; Hyperlipidemia, unspeci fied E78.5 and Lumbar radiculopathy M54.16 [place] [address] [address] Aug, Bipolar 1 disorder F31.9 ; Borderline in tellectual functioning R41.83 and Extreme poverty Z59.5 [place] [address] [address] Aug, [facility] [address] [place] [id number] [place] [address] Aug, [facility] [address] [place] [id number] [place] [address] Aug, [facility] [address] [place] [id number] [place] [address] July, [facility] [address] [place] [id number] [place] [address] July, Acute bilateral low back pain with right -sided sciatica M54.41 [place] [address] [place] [id number] [place] [address] July, Bipolar 1 disorder F31.9 ; Borderline in tellectual functioning R41.83 and Extreme poverty Z59.5 [place] [address] [place] [id number] [place] [address] July, Back pain M54.9 and Diabetes E11.9 [place] [address] [place] [id number] [place] [address] Jun, Bipolar 1 disorder F31.9 ; Borderline in tellectual functioning R41.83 and Extreme poverty Z59.5 [place] [address] [place] [id number] [place] [address] Jun, Bipolar 1 disorder F31.9 ; Borderline in tellectual functioning R41.83 and Extreme poverty Z59.5 [place] [address] [place] [id number] [place] [address] May, Visit for pelvic exam Z01.419 ; Acute va ginitis N76.0 and Diabetes E11.9 [facility] [address] [place] [id number] [place] [address] May, Bipolar 1 disorder F31.9 ; Borderline in tellectual functioning R41.83 and Extreme poverty Z59.5 [place] [address] [place] [id number] [place] [address] May, [facility] [address] [address] 07 May, 2016 [place] [address] [address] May, Bipolar 1 disorder F31.9 ; Borderline in tellectual functioning R41.83 and Extreme poverty Z59.5 [place] [address] [address] May, Hyperlipidemia, unspecified E78.5 [place] [address] [address] 13 Apr, 2016 Breast cancer screening Z12.39 [place] [address] [address] Mar, [place] [address] [address] Mar, Bipolar disorder, current episode mixed, unspecified F31.[address] [address] Mar, Bipolar 1 disorder F31.9 ; Borderline in tellectual functioning R41.83 and Extreme poverty Z59.5 [place] [address] [address] Feb, Acute nasopharyngitis J00 [address] [address] Feb, Dental examination Z01.[address] [address] Feb, Dental cavities K02.9 and Chronic period ontitis, unspecified K05.[address] [address] Feb, Low back pain M54.5 and Extreme poverty Z59.5 [place] [address] [address] Feb, [address] [address] Feb, Routine gynecological examination V72.31 ; Breast cancer screening Z12.39 and Herpes simplex type [address] infection [address] [address] Feb, Diabetes E11.9 [place] [address] [address] Feb, Encounter for dental examination and leti aning without abnormal findings Z01.20 [place] [address] [address] Jan, Hyperlipidemia, unspecified E78.[address] [address] Jan, Bipolar 1 disorder F31.9 ; Borderline in tellectual functioning R41.83 and Extreme poverty Z59.[address] [address] Jan, Diabetes E11.9 [place] [address] [address] 17 Jan, 2016 Diabetes E11.[address] [address] 14 Dec, 2015 Bipolar 1 disorder F31.9 ; Borderline in tellectual functioning R41.83 and Extreme poverty Z59.[address] [address] 13 Dec, 2015 Bipolar disorder, current episode mixed, unspecified F31.60 and Borderline intellectual functioning R41.[address] [address] 16 Nov, 2015 Bipolar 1 disorder F31.9 ; Borderline in tellectual functioning R41.83 ; Extreme poverty Z59.5 and Non compliance with medical treatment Z91.19 [place] [address] [address] Oct, [address] [address] Oct, Dental caries K02.9 [place] [address] [address] Oct, Low back pain M54.5 and Other chronic pa in G89.29 [place] [address] [address] Oct, Bipolar 1 disorder F31.9 ; Borderline in tellectual functioning R41.83 ; Extreme poverty Z59.5 and Non compliance with medical treatment Z91.19 [place] [address] [address] Oct, [place] [address] [address] Oct, [place] [address] [address] Oct, Dental examination Z01.20 [place] [address] [address] Oct, Bipolar 1 disorder F31.9 ; Borderline in tellectual functioning R41.83 ; Extreme poverty Z59.5 and Non compliance with medical treatment Z91.19 [place] [address] [address] Oct, [place] [address] [address] Sep, Type 2 diabetes mellitus with complicati on E11.8 [place] [address] [address] Sep, Bipolar disorder, current episode mixed, unspecified F31.60 [place] [address] [address] Sep, Bipolar disorder, current episode mixed, unspecified F31.60 [place] [address] [address] Sep, Bipolar disorder, in partial remission, most recent episode manic F31.73 ; 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 ; Extreme poverty Z59.5 and Non compliance with medical treatment Z91.19 [place] [address] [address] 15 Aug, 2015 Bipolar disorder, in partial remission, most recent episode manic F31.73 ; 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 ; Extreme poverty Z59.5 and Non compliance with medical treatment Z91.19 [place] [address] [address] Aug, Bipolar disorder, in partial remission, most recent episode manic F31.73 ; 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 ; Extreme poverty Z59.5 and Non compliance with medical treatment Z91.19 [place] [address] [address] Aug, [place] [address] [address] July, Bipolar disorder, in partial remission, most recent episode manic F31.73 ; 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 ; Extreme poverty Z59.5 and Non compliance with medical treatment Z91.19 [place] [address] [address] July, Bipolar disorder, current episode mixed, unspecified F31.60 [place] [address] [address] July, Bipolar disorder, in partial remission, most recent episode manic F31.73 ; 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 ; Extreme poverty Z59.5 and Non compliance with medical treatment Z91.19 [place] [address] [address] July, 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 c Z79.891 and Chronic pain G89.29 [place] [address] [address] Jun, 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 c Z79.891 and Bipolar 1 disorder F31.9 [place] [address] [address] Jun, [place] [address] [address] Jun, [place] [address] [address] Jun, [place] [address] [address] Jun, Bipolar disorder, in partial remission, most recent episode manic F31.73 ; 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 and Non compliance with medical treatment Z91.19 [place] [address] [address] May, Bipolar disorder, in partial remission, most recent episode manic F31.73 ; 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 and Non compliance with medical treatment Z91.19 [place] [address] [address] May, Bipolar disorder, in partial remission, most recent episode manic F31.73 [place] [address] [address] May, Diabetes E11.9 and Chronic pain G89.29 [place] [address] [address] May, [place] [address] [address] May, Bipolar disorder, in partial remission, most recent episode manic F31.73 ; Non compliance with medical treatment Z91.19 and 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 [place] [address] [address] May, Type 2 diabetes mellitus with complicati on E11.8 and Back pain M54.9 [place] [address] [address] May, Bipolar disorder, in partial remission, most recent episode manic F31.73 and 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 [place] [address] [address] Apr, [place] [address] [address] Apr, [place] [address] [address] Apr, [place] [address] [address] 09 Apr, 2015 Diabetes E11.9 ; Irritable bowel syndrom e with diarrhea K58.0 and Lumbar radiculopathy M54.16 [place] [address] [address] Apr, Breast screening Z12.39 [place] [address] [address] Apr, Bipolar disorder, in partial remission, most recent episode manic F31.73 ; Non compliance with medical treatment Z91.19 and 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 [place] [address] [address] Mar, Edema, unspecified type R60.9 and Type 2 diabetes mellitus with complication E11.[address] [address] Mar, Bipolar disorder, in partial remission, most recent episode manic F31.73 ; Non compliance with medical treatment Z91.19 ; 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 and Extreme poverty Z59.5 [place] [address] [address] Mar, Bipolar disorder, current episode mixed, unspecified F31.60 ; 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 ; Extreme poverty Z59.5 and Generalized anxiety disorder F41.1 [place] [address] [address] Mar, Bipolar disorder, in partial remission, most recent episode manic F31.73 ; 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 and Extreme poverty Z59.[address] [address] Feb, Bipolar disorder, in partial remission, most recent episode manic F31.73 ; 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 and Extreme poverty Z59.5 [place] [address] [address] Feb, Bipolar disorder, in partial remission, most recent episode manic F31.73 ; 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 and Extreme poverty Z59.5 [place] [address] [address] Feb, [place] [address] [address] Jan, Type 2 diabetes mellitus with complicati on E11.8 and Petechiae R23.3 [place] [address] [address] Jan, Type 2 diabetes mellitus with complicati on E11.8 ; Edema, unspecified R60.9 ; Petechiae R23.3 and Diabetes E11.9 [place] [address] [address] Jan, Bipolar disorder, in partial remission, most recent episode manic F31.73 ; 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 and Extreme poverty Z59.5 [place] [address] [address] Jan, Bipolar disorder, in partial remission, most recent episode manic F31.73 ; 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 and Extreme poverty Z59.5 [place] [address] [address] Dec, Bipolar disorder, in partial remission, most recent episode manic F31.73 [place] [address] [address] Dec, Edema, due to unspecified malnutrition t ype, unspecified edema R60.9 and Essential hypertension I10 [place] [address] [address] Dec, Bipolar disorder, in partial remission, most recent episode manic F31.73 [facility] [address] [address] Nov, Bipolar I disorder, most recent episode (or current) mixed, unspecified 296.60 [facility] [address] [address] Nov, Stress incontinence, female 625.6 ; Back pain 724.5 and Leg pain 729.5 [facility] [address] [address] Nov, Generalized anxiety disorder 300.02 and Bipolar II disorder 296.89 [facility] [address] [address] Nov, Bipolar I disorder, most recent episode (or current) mixed, unspecified 296.60 [facility] [address] [address] Oct, [facility] [address] [address] Oct, [facility] [address] [address] Oct, [facility] [address] [address] Oct, Bipolar I disorder, most recent episode (or current) mixed, unspecified 296.60 [facility] [address] [address] Sep, Diabetes 250.00 [facility] [address] [address] Sep, Bipolar I disorder, most recent episode (or current) mixed, unspecified 296.60 [facility] [address] [address] Sep, [facility] [address] [address] Sep, [facility] [address] [address] Sep, Bipolar I disorder, most recent episode (or current) mixed, unspecified 296.60 [facility] [address] [address] Sep, Bipolar I disorder, most recent episode (or current) mixed, unspecified 296.60 [facility] [address] [address] Sep, [facility] [address] [address] Sep, Anxiety 300.00 ; Diabetes 250.00 and Hyp erlipidemia 272.4 [place] [address] [address] Aug, [place] [address] [address] Aug, [place] [address] [address] Aug, [facility] [address] [address] Aug, Bipolar I disorder, most recent episode (or current) mixed, unspecified 296.60 [place] [address] [address] Aug, Generalized anxiety disorder 300.02 and Bipolar II disorder 296.89 [place] [address] [address] July, Bipolar I disorder, most recent episode (or current) mixed, unspecified 296.60 [facility] [address] [address] July, Cough 786.2 [facility] [address] [address] July, Bipolar I disorder, most recent episode (or current) mixed, unspecified 296.60 [facility] [address] [address] Jun, Diabetes 250.00 [facility] [address] [place] [address] [place] [address] 14 Jun, 2014 [facility] [place] [facility] [address] [facility] [id number] [place] [address] 13 Jun, 2014 [facility] [place] [facility] [address] [id number] [place] [address] 24 May, 2014 [facility] [place] [facility] [address] [id number] [place] [address] 24 May, 2014 [facility] [place] [facility] [address] [id number] [place] [address] 10 May, 2014 [facility] [place] [facility] [address] [id number] [place] [address] 10 May, 2014 [facility] [place] [facility] [address] [id number] [place] [address] 10 May, 2014 [facility] [place] [facility] [address] [id number] [place] [address] 10 May, 2014 [facility] [place] [facility] [address] [id number] [place] [address] Apr, 2014 [facility] [place] [facility] [address] [id number] [place] [address] Apr, 2014 [facility] [place] [facility] [address] [id number] [place] [address] Apr, 2014 [facility] [place] [facility] [address] [id number] [place] [address] Apr, 2014 [facility] [place] [facility] [address] [id number] [place] [address] 10 Apr, 2014 [facility] [place] [facility] [address] [id number] [place] [address] 10 Apr, 2014 [facility] [place] [facility] [address] [id number] [place] [address] 05 Apr, 2014 [facility] [place] [facility] [address] [id number] [place] [address] 05 Apr, 2014 [facility] [place] [facility] [address] [id number] [place] [address] Mar, [facility] [place] [facility] [address] [facility] [id number] [place] [address] Mar, [facility] [place] [facility] [address] [facility] [id number] [place] [address] Mar, [facility] [place] [facility] [address] [id number] [place] [address] Mar, [facility] [place] [facility] [address] [id number] [place] [address] Mar, [facility] [place] [facility] [address] [facility] [id number] [place] [address] Mar, [facility] [place] [facility] [address] [id number] [place] [address] Mar, [facility] [place] [facility] [address] [id number] [place] [address] Mar, [facility] [place] [facility] [address] [id number] [place] [address] Feb, [facility] [place] [facility] [address] [facility] [id number] [place] [address] Feb, [facility] [place] [facility] [address] [id number] [place] [address] Feb, [facility] [place] [facility] [address] [id number] [place] [address] Feb, [facility] [place] [facility] [address] [id number] [place] [address] Feb, [facility] [place] [facility] [address] [facility] [id number] [place] [address] Feb, [facility] [place] [facility] [address] [id number] [place] [address] Feb, [facility] [place] [facility] [address] [id number] [place] [address] Feb, [facility] [place] [facility] [address] [id number] [place] [address] Feb, [facility] [place] [facility] [address] [id number] [place] [address] Feb, [facility] [place] [facility] [address] [id number] [place] [address] Jan, [facility] [place] [facility] [address] [id number] [place] [address] Jan, [facility] [place] [facility] [address] [id number] [place] [address] Jan, [facility] [place] [facility] [address] [id number] [place] [address] Jan, [facility] [place] [facility] [address] [id number] [place] [address] Jan, [facility] [place] [facility] [address] [id number] [place] [address] Jan, [facility] [place] [facility] [address] [id number] [place] [address] Jan, [facility] [place] [facility] [address] [id number] [place] [address] Jan, [facility] [place] [facility] [address] [id number] [place] [address] Jan, [facility] [place] [facility] [address] [id number] [place] [address] Jan, [facility] [place] [facility] [address] [id number] [place] [address] Jan, [facility] [place] [facility] [address] [id number] [place] [address] Jan, [facility] [place] [facility] [address] [id number] [place] [address] Jan, [facility] [place] [facility] [address] [place] [id number] [place] [address] Jan, [facility] [place] [facility] [address] [id number] [place] [address] Jan, [facility] [place] [facility] [address] [id number] [place] [address] Dec, [facility] [place] [facility] [address] [id number] [place] [address] 20 Dec, 2013 [facility] [place] [facility] [address] [id number] [place] [address] 16 Dec, 2013 [facility] [place] [facility] [address] [id number] [place] [address] 16 Dec, 2013 [facility] [place] [facility] [address] [id number] [place] [address] 09 Dec, 2013 [facility] [place] [facility] [address] [id number] [place] [address] 09 Dec, 2013 [facility] [place] [facility] [address] [id number] [place] [address] 07 Dec, 2013 [facility] [place] [facility] [address] [id number] [place] [address] 07 Dec, 2013 [facility] [place] [facility] [address] [id number] [place] [address] 25 Sep, 2013 [facility] [place] [facility] [address] [id number] [place] [address] 25 Sep, 2013 [facility] [place] [facility] [address] [id number] [place] [address] 10 Sep, 2013 [facility] [place] [facility] [address] [id number] [place] [address] 10 Sep, 2013 [facility] [place] [facility] [address] [id number] [place] [address] 08 Sep, 2013 [facility] [place] [facility] [address] [id number] [place] [address] 08 Sep, 2013 [facility] [place] [facility] [address] [id number] [place] [address] 08 Sep, 2013 [facility] [place] [facility] [address] [id number] [place] [address] 08 Sep, 2013 [facility] [place] [facility] [address] [id number] [place] [address] 08 Sep, 2013 [facility] [place] [facility] [address] [id number] [place] [address] 08 Sep, 2013 [facility] [place] [facility] [address] [id number] [place] [address] 04 Nov, 2013 [facility] [place] [facility] [address] [facility] [id number] [place] [address] 04 Nov, 2013 [facility] [place] [facility] [address] [facility] [id number] [place] [address] 03 Nov, 2013 [facility] [place] [facility] [address] [id number] [place] [address] Nov, 2013 [facility] [place] [facility] [address] [facility] [id number] [place] [address] Nov, 2013 [facility] [place] [facility] [address] [id number] [place] [address] Oct, [facility] [place] [facility] [address] [facility] [id number] [place] [address] Oct, [facility] [place] [facility] [address] [id number] [place] [address] Oct, [facility] [place] [facility] [address] [facility] [id number] [place] [address] Oct, [facility] [place] [facility] [address] [id number] [place] [address] Oct, [facility] [place] [facility] [address] [facility] [id number] [place] [address] Oct, [facility] [place] [facility] [address] [id number] [place] [address] Oct, [facility] [place] [facility] [address] [facility] [id number] [place] [address] Oct, [facility] [place] [facility] [address] [id number] [place] [address] Oct, [facility] [place] [facility] [address] [facility] [id number] [place] [address] Oct, [facility] [place] [facility] [address] [id number] [place] [address] Oct, [facility] [place] [facility] [address] [id number] [place] [address] Oct, [facility] [place] [facility] [address] [id number] [place] [address] Oct, [facility] [place] [facility] [address] [facility] [id number] [place] [address] Oct, [facility] [place] [facility] [address] [id number] [place] [address] Sep, [facility] [place] [facility] [address] [facility] [id number] [place] [address] Sep, [facility] [place] [facility] [address] [facility] [id number] [place] [address] Sep, [facility] [place] [facility] [address] [id number] [place] [address] Sep, [facility] [place] [facility] [address] [id number] [place] [address] Sep, [facility] [place] [facility] [address] [id number] [place] [address] Sep, [facility] [place] [facility] [address] [id number] [place] [address] Sep, [facility] [place] [facility] [address] [id number] [place] [address] Sep, [facility] [place] [facility] [address] [id number] [place] [address] Aug, [facility] [place] [facility] [address] [id number] [place] [address] Aug, [facility] [place] [facility] [address] [id number] [place] [address] Aug, [facility] [place] [facility] [address] [id number] [place] [address] Aug, [facility] [place] [facility] [address] [id number] [place] [address] Aug, [facility] [place] [facility] [address] [id number] [place] [address] Aug, [facility] [place] [facility] [address] [id number] [place] [address] Aug, [facility] [place] [facility] [address] [id number] [place] [address] Aug, [facility] [place] [facility] [address] [id number] [place] [address] July, [facility] [place] [facility] [address] [id number] [place] [address] July, [facility] [place] [facility] [address] [id number] [place] [address] July, [facility] [place] [facility] [address] [id number] [place] [address] July, [facility] [place] [facility] [address] [id number] [place] [address] July, [facility] [place] [facility] [address] [id number] [place] [address] July, [facility] [place] [facility] [address] [id number] [place] [address] July, [facility] [place] [facility] [address] [id number] [place] [address] July, [facility] [place] [facility] [address] [id number] [place] [address] Jun, [facility] [place] [facility] [address] [id number] [place] [address] Jun, [facility] [place] [facility] [address] [id number] [place] [address] Jun, [facility] [place] [facility] [address] [id number] [place] [address] Jun, [facility] [place] [facility] [address] [id number] [place] [address] Jun, [facility] [place] [facility] [address] [id number] [place] [address] Jun, [facility] [place] [facility] [address] [id number] [place] [address] Jun, [facility] [place] [facility] [address] [facility] [id number] [place] [address] Jun, [facility] [place] [facility] [address] [facility] [id number] [place] [address] Jun, [facility] [place] [facility] [address] [facility] [id number] [place] [address] Jun, [facility] [place] [facility] [address] [facility] [id number] [place] [address] Jun, [facility] [place] [facility] [address] [facility] [id number] [place] [address] Jun, [facility] [place] [facility] [address] [id number] [place] [address] May, [facility] [place] [facility] [address] [id number] [place] [address] May, [facility] [place] [facility] [address] [id number] [place] [address] May, [facility] [place] [facility] [address] [facility] [id number] [place] [address] May, [facility] [place] [facility] [address] [id number] [place] [address] May, [facility] [place] [facility] [address] [id number] [place] [address] May, [facility] [address] [id number] [place] [address] May, [facility] [address] [facility] [id number] [place] [address] May, [facility] [address] [facility] [id number] [place] [address] May, [facility] [address] [facility] [id number] [place] [address] May, [facility] [address] [id number] [place] [address] May, [facility] [address] [id number] [place] [address] May, [facility] [address] [facility] [id number] [place] [address] May, [facility] [address] [id number] [place] [address] May, [facility] [address] [id number] [place] [address] Apr, [facility] [address] [id number] [place] [address] Apr, [facility] [address] [id number] [place] [address] Apr, [facility] [address] [id number] [place] [address] Apr, [facility] [address] [id number] [place] [address] Apr, [facility] [address] [id number] [place] [address] Apr, [facility] [address] [id number] [place] [address] Mar, [facility] [address] [id number] [place] [address] Mar, [facility] [address] [id number] [place] [address] Mar, [facility] [address] [id number] [place] [address] Mar, [facility] [address] [facility] [id number] [place] [address] Mar, [facility] [address] [id number] [place] [address] Mar, [facility] [address] [id number] [place] [address] Mar, [facility] [address] [id number] [place] [address] Mar, [facility] [address] [id number] [place] [address] Mar, [facility] [address] [id number] [place] [address] Mar, [facility] [address] [id number] [place] [address] Mar, [facility] [address] [id number] [place] [address] Mar, [facility] [address] [id number] [place] [address] Mar, [facility] [address] [id number] [place] [address] Mar, [facility] [address] [id number] [place] [address] Feb, [facility] [address] [id number] [place] [address] Feb, [facility] [address] [id number] [place] [address] Feb, [facility] [address] [id number] [place] [address] Feb, [facility] [address] [id number] [place] [address] Feb, [facility] [facility] [address] [id number] [place] [address] Feb, [facility] [address] [id number] [place] [address] Feb, [facility] [address] [id number] [place] [address] Feb, [facility] [address] [id number] [place] [address] Feb, [facility] [address] [id number] [place] [address] Feb, [facility] [address] [id number] [place] [address] 09 Feb, 2012 [facility] [address] [facility] [id number] [place] [address] 09 Feb, 2012 [facility] [address] [id number] [place] [address] 05 Feb, 2012 [facility] [address] [id number] [place] [address] 05 Feb, 2012 [facility] [address] [id number] [place] [address] 05 Feb, 2012 [facility] [address] [facility] [id number] [place] [address] 05 Feb, 2012 [facility] [address] [id number] [place] [address] 24 Dec, 2012 [facility] [address] [id number] [place] [address] 24 Dec, 2012 [facility] [address] [id number] [place] [address] 16 Dec, 2012 [facility] [address] [id number] [place] [address] 16 Dec, 2012 [facility] [address] [id number] [place] [address] 16 Dec, 2012 [facility] [address] [id number] [place] [address] 16 Dec, 2012 [facility] [address] [id number] [place] [address] 14 Dec, 2012 [facility] [address] [id number] [place] [address] 14 Dec, 2012 [facility] [address] [id number] [place] [address] 10 Dec, 2012 [facility] [address] [id number] [place] [address] 10 Dec, 2012 [facility] [address] [id number] [place] [address] 10 Dec, 2012 [facility] [address] [facility] [id number] [place] [address] 10 Dec, 2012 [facility] [address] [facility] [id number] [place] [address] Dec, [facility] [address] [facility] [id number] [place] [address] 25 Nov, 2012 [facility] [address] [id number] [place] [address] 20 Nov, 2012 [facility] [address] [facility] [id number] [place] [address] 18 Nov, 2012 [facility] [address] [facility] [id number] [place] [address] 16 Nov, 2012 [facility] [address] [id number] [place] [address] 12 Nov, 2012 [facility] [address] [id number] [place] [address] 11 Nov, 2012 [facility] [address] [id number] [place] [address] 05 Nov, 2012 [facility] [address] [id number] [place] [address] 15 Oct, 2012 [facility] [address] [id number] [place] [address] Oct, [facility] [address] [id number] [place] [address] Sep, [facility] [address] [id number] [place] [address] Sep, [facility] [address] [facility] [id number] [place] [address] Sep, [facility] [address] [id number] [place] [address] Sep, [facility] [address] [id number] [place] [address] Sep, [facility] [address] [id number] [place] [address] Sep, [facility] [address] [facility] [id number] [place] [address] 08 Sep, 2012 [facility] [address] [id number] [place] [address] Aug, [facility] [address] [id number] [place] [address] 18 Aug, 2012 [facility] [address] [id number] [place] [address] 16 Aug, 2012 [facility] [address] [facility] [id number] [place] [address] Aug, [facility] [address] [id number] [place] [address] Aug, [facility] [address] [id number] [place] [address] Aug, [facility] [address] [id number] [place] [address] Aug, [facility] [address] [id number] [place] [address] Aug, [facility] [address] [id number] [place] [address] July, [facility] [address] [id number] [place] [address] July, [facility] [address] [id number] [place] [address] July, [facility] [address] [facility] [id number] [place] [id number] July, [facility] [address] [id number] [place] [address] July, [facility] [address] [id number] [place] [address] Jun, [facility] [address] [id number] [place] [address] May, [facility] [address] [id number] [place] [address] 14 May, 2012 [facility] [address] [id number] [place] [address] 04 May, 2012 [facility] [address] [id number] [place] [address] Apr, [facility] [address] [id number] [place] [address] Apr, [facility] [address] [id number] [place] [address] Apr, [facility] [address] [id number] [place] [address] Mar, [facility] [address] [id number] [place] [address] Mar, [facility] [address] [id number] [place] [address] Mar, [facility] [address] [id number] [place] [address] Mar, [facility] [address] [id number] [place] [address] Mar, [facility] [address] [id number] [place] [address] Mar, [facility] [address] [id number] [place] [address] Mar, [facility] [address] [id number] [place] [address] Feb, [facility] [address] [id number] [place] [address] 31 Feb, 2012 [facility] [address] [id number] [place] [address] 18 Feb, 2012 [facility] [address] [id number] [place] [address] 18 Feb, 2012 [facility] [address] [id number] [place] [address] 17 Feb, 2012 [facility] [address] [id number] [place] [address] Feb, [facility] [address] [id number] [place] [address] Feb, [facility] [address] [id number] [place] [address] Feb, [facility] [address] [id number] [place] [address] Jan, [facility] [address] [id number] [place] [address] Jan, [facility] [address] [id number] [place] [address] Jan, [facility] [address] [id number] [place] [address] Jan, [facility] [address] [id number] [place] [address] Jan, [facility] [address] [id number] [place] [address] Jan, [facility] [address] [id number] [place] [address] Jan, [facility] [address] [id number] [place] [address] Jan, [facility] [address] [id number] [place] [address] Jan, [facility] [address] [id number] [place] [address] Jan, [facility] [address] [id number] [place] [address] Jan, [facility] [id number] [place] [address] Jan, [facility] [address] [id number] [place] [address] Jan, [facility] [address] [id number] [place] [address] Jan, [facility] [address] [id number] [place] [address] Jan, [facility] [address] [id number] [place] [address] Jan, [facility] [address] [id number] [place] [address] Dec, [facility] [address] [id number] [place] [address] Dec, [facility] [address] [id number] [place] [address] Dec, [facility] [address] [id number] [place] [address] Dec, [facility] [address] [id number] [place] [address] Dec, [facility] [address] [id number] [place] [address] Dec, [facility] [address] [id number] [place] [address] Dec, [facility] [address] [id number] [place] [address] Dec, [facility] [address] [id number] [place] [address] 08 Dec, 2011 [facility] [address] [id number] [place] [address] 05 Dec, 2011 [facility] [address] [id number] [place] [address] 18 Nov, 2011 [facility] [address] [id number] [place] [address] 13 Nov, 2011 [facility] [address] [id number] [place] [address] 24 Oct, 2011 [facility] [address] [id number] [place] [address] Oct, [facility] [address] [id number] [place] [address] 17 Oct, 2011 [facility] [address] [id number] [place] [address] Oct, [facility] [address] [id number] [place] [address] Oct, [facility] [address] [id number] [place] [address] Oct, [facility] [address] [id number] [place] [address] Oct, [facility] [address] [facility] [id number] [place] [address] Sep, [facility] [address] [id number] [place] [address] Aug, [facility] [address] [id number] [place] [address] Aug, [facility] [address] [id number] [place] [address] Aug, [facility] [address] [id number] [place] [address] Aug, [facility] [address] [id number] [place] [address] Aug, [facility] [address] [id number] [place] [address] July, [facility] [address] [id number] [place] [address] July, [facility] [address] [id number] [place] [address] July, [facility] [address] [id number] [place] [address] Jun, [facility] [address] [id number] [place] [address] Jun, [facility] [address] [id number] [place] [address] Jun, [facility] [address] [id number] [place] [address] 02 Jun, 2011 [facility] [address] [id number] [place] [address] 30 May, 2011 [facility] [address] [id number] [place] [address] 30 May, 2011 [facility] [address] [id number] [place] [address] 29 May, 2011 [facility] [address] [id number] [place] [address] 28 May, 2011 [facility] [address] [id number] [place] [address] May, [facility] [address] [id number] [place] [address] May, [facility] [address] [id number] [place] [address] May, [facility] [address] [id number] [place] [address] May, [facility] [address] [id number] [place] [address] 08 May, 2011 [facility] [address] [id number] [place] [address] 05 May, 2011 [facility] [address] [id number] [place] [address] May, [facility] [address] [id number] [place] [address] May, [facility] [address] [id number] [place] [address] Mar, [facility] [address] [id number] [place] [address] Mar, [facility] [address] [id number] [place] [address] Feb, [facility] [address] [id number] [place] [address] Feb, [facility] [address] [id number] [place] [address] 20 Feb, 2011 [facility] [address] [id number] [place] [address] 15 Feb, 2011 [facility] [address] [id number] [place] [address] 13 Feb, 2011 [facility] [address] [id number] [place] [address] Feb, [facility] [address] [id number] [place] [address] Feb, [facility] [address] [id number] [place] [address] Jan, [facility] [address] [id number] [place] [address] Jan, [facility] [address] [id number] [place] [address] Jan, [facility] [address] [id number] [place] [address] Jan, [facility] [address] [id number] [place] [address] Jan, [facility] [address] [id number] [place] [address] Jan, [facility] [address] [id number] [place] [address] Dec, [facility] [address] [id number] [place] [address] Dec, [facility] [address] [id number] [place] [address] Dec, [facility] [address] [id number] [place] [address] July, [facility] [address] [id number] [place] [address] July, [facility] [address] [id number] [place] [address] 08 Feb, 2010 [facility] [address] [id number] [place] [address] 18 Jan, 2010 [facility] [address] [id number] [place] [address] Dec, [facility] [address] [id number] [place] [address] 12 Dec, 2009 [facility] [address] [id number] [place] [address] 15 Sep, 2009 [facility] [address] [id number] [place] [address] Aug, [facility] [address] [id number] [place] [address] Jun, [facility] [address] [id number] [place] [address] Jun, [facility] [address] [id number] [place] [address] Jan, [facility] [address] [id number] [place] [address] Jan, [facility] [address] [id number] [place] [address] Jan, [facility] [address] [id number] [place] [address] Jan, [facility] [address] [id number] [place] [address] 29 Dec, 2008 [facility] [address] [id number] [place] [address] Dec, [facility] [address] [id number] [place] [address] 15 Dec, 2008 [facility] [address] [id number] [place] [address] Nov, [facility] [address] [id number] [place] [address] July, [facility] [address] [id number] [place] [address] May, [facility] [address] [id number] [place] [address] Apr, [facility] [address] [id number] [place] [address] Feb, [facility] [address] [id number] [place] [address] Dec, IMMUNIZATIONS No Known Immunizations SOCIAL HISTORY Never Assessed REASON FOR VISIT PLAN OF CARE VITAL SIGNS MEDICATIONS Unknown Medications RESULTS No Results PROCEDURES Procedure Date Ordered Result Body Site PSYTX PT&/FAMILY 45 MINUTES June 27, 2013 INSTRUCTIONS MEDICATIONS ADMINISTERED No Known Medications [...]
--- OUTSIDE RECORDS SUMMARY | 2019-06-22 19:43 | XMS REPORT ---
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 Active 16557947 Problem Irritable bowel syndrome with diarrhea K58.0 Active 613858971 Problem Diabetes E11.9 Active 167446290 Problem Bipolar 1 disorder F31.9 Active 3 04387878 Problem Lumbar radiculopathy M54.16 Active 630360970 Problem Hyperlipidemia, unspecified E78.5 Ac tive 24814471 Problem Acute bilateral low back pain with right-sided sciatica M54.41 Active 909359406 Problem New daily persistent headache G44.52 Active 009069661 Problem Insulin long-term use Z79.4 Active 339024745 Problem Type 2 diabetes mellitus with complication E11.8 Active 665774325 Problem Post laminectomy syndrome M96.1 Acti ve 12031368 Problem Rhinosinusitis J32.9 Active 08964 000 Problem correction current 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 Z79.891 Active 429440980 Problem Eye exam normal Z01.00 Active 2438 87783 Problem Type 2 diabetes mellitus with hyperglycemia E11.65 Active 27796426 Problem Lumbago with sciatica, left side M54.42 Active 073060144 Problem Other chronic pain G89.29 Active 8 1162569 Problem Hypertriglyceridemia E78.1 Active 590082006 ALLERGIES No Information ENCOUNTERS Encounter Location Date Diagnosis [facility] [address] [id number] [place] [address] May, [facility] [address] [address] Apr, [facility] [address] [address] Apr, [facility] [address] [address] Mar, Bipolar 1 disorder F31.9 ; Borderline in tellectual functioning R41.83 and Extreme poverty Z59.5 [facility] [address] [address] Mar, Exercise counseling Z71.82 [place] [address] [address] Mar, [place] [address] [address] Mar, Bipolar disorder, in partial remission, most recent episode manic F31.73 and 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 [facility] [address] [address] Mar, [facility] [address] [address] Mar, Exercise counseling Z71.82 [place] [address] [address] Feb, Bipolar 1 disorder F31.9 ; Borderline in tellectual functioning R41.83 and Extreme poverty Z59.5 [place] [address] [place] [id number] [place] [address] Feb, [facility] [address] [address] Feb, Type 2 diabetes mellitus with complicati on E11.8 [facility] [address] [facility] [id number] [address] [place] [address] Feb, Acute low back pain without sciatica, unspecified back pain laterality M54.5 [place] [address] [address] Feb, Bipolar 1 disorder F31.9 ; Borderline in tellectual functioning R41.83 and Extreme poverty Z59.5 [facility] [address] [address] Jan, Bipolar 1 disorder F31.9 ; Borderline in tellectual functioning R41.83 and Extreme poverty Z59.5 [facility] [address] [place] [id number] [place] [address] Jan, [facility] [address] [address] Jan, Type 2 diabetes mellitus with complicati on E11.8 [place] [address] [address] Jan, Type 2 diabetes mellitus with complicati on E11.8 ; Dysuria R30.0 and Diarrhea, unspecified type R19.7 [place] [address] [address] Jan, Bipolar 1 disorder F31.9 ; Borderline in tellectual functioning R41.83 and Extreme poverty Z59.5 [place] [address] [address] Dec, [facility] [address] [address] Dec, [facility] [address] [address] Dec, [facility] [address] [address] Dec, [facility] [address] [address] Dec, Rhinosinusitis J32.9 [facility] [address] [address] Dec, [facility] [address] [address] Dec, Bipolar 1 disorder F31.9 ; Borderline in tellectual functioning R41.83 and Extreme poverty Z59.5 [place] [address] [address] Dec, Type 2 diabetes mellitus with complicati on E11.8 and Type 2 diabetes mellitus with hyperglycemia E11.65 [place] [address] [address] Dec, [place] [address] [address] Dec, Type 2 diabetes mellitus with complicati on E11.8 ; Insulin long-term use Z79.4 ; Hyperglycemia R73.9 and Yeast infection B37.9 [place] [address] [address] Dec, Encounter for immunization Z23 [place] [address] [address] Nov, [place] [address] [address] Nov, Bipolar 1 disorder F31.9 ; Borderline in tellectual functioning R41.83 and Extreme poverty Z59.5 [place] [address] [address] Nov, [place] [address] [address] Nov, [place] [address] [address] Nov, Borderline intellectual functioning R41. 83 and Bipolar disorder, in partial remission, most recent episode manic F31.73 [facility] [address] [facility] [id number] [address] [place] [address] Nov, Epigastric abdominal pain R1 0.13 [place] [address] [address] Nov, Bipolar 1 disorder F31.9 ; Borderline in tellectual functioning R41.83 and Extreme poverty Z59.5 [facility] [address] [place] [id number] [place] [address] Oct, Dysuria R30.0 and Acute cyst itis without hematuria N30.00 [facility] [address] [place] [id number] [place] [address] Oct, [facility] [address] [address] Oct, [facility] [address] [address] Oct, Bipolar 1 disorder F31.9 ; Borderline in tellectual functioning R41.83 and Extreme poverty Z59.5 [place] [address] [address] Oct, [facility] [address] [address] Oct, [facility] [address] [address] Oct, Bipolar disorder, in partial remission, most recent episode manic F31.73 and 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 [address] [address] Sep, Mouth pain K13.79 [facility] [address] [address] Sep, [facility] [address] [address] Sep, Bipolar 1 disorder F31.9 ; Borderline in tellectual functioning R41.83 and Extreme poverty Z59.5 [place] [address] [address] Sep, [place] [address] [address] Sep, [place] [address] [address] Sep, Diabetes E11.9 ; Hyperglycemia R73.9 ; L eliseo term current use of insulin Z79.4 and Diarrhea, unspecified type R19.7 [place] [address] [address] Sep, [place] [address] [address] Sep, Bipolar 1 disorder F31.9 ; Borderline in tellectual functioning R41.83 and Extreme poverty Z59.5 [place] [address] [address] Sep, [place] [address] [address] Sep, [place] [address] [address] Aug, Bipolar 1 disorder F31.9 ; Borderline in tellectual functioning R41.83 and Extreme poverty Z59.5 [place] [address] [address] Aug, Exercise counseling Z71.82 [place] [address] [address] Aug, Bipolar 1 disorder F31.9 ; Borderline in tellectual functioning R41.83 and Extreme poverty Z59.5 [place] [address] [address] Aug, Borderline intellectual functioning R41. 83 and Bipolar disorder, in partial remission, most recent episode manic F31.73 [facility] [address] [address] Aug, Low back pain M54.5 [facility] [address] [address] Aug, Borderline intellectual functioning R41. 83 and Bipolar disorder, in partial remission, most recent episode manic F31.73 [facility] [address] [address] July, Acute superficial gastritis without hemo rrhage K29.00 ; Low back pain M54.5 and Other chronic pain G89.29 [place] [address] [address] July, [place] [address] [address] July, [place] [address] [address] Jun, [facility] [address] [facility] [id number] [address] [place] [address] Jun, Bilateral lower extremity ed epi R60.0 [place] [address] [address] Jun, Borderline intellectual functioning R41. 83 and Bipolar disorder, in partial remission, most recent episode manic F31.73 [place] [address] [address] Jun, [place] [address] [address] May, Bronchitis J40 [place] [address] [address] May, Screening for breast cancer Z12.31 and E ncounter for immunization Z23 [facility] [address] [address] May, Bipolar 1 disorder F31.9 ; Borderline in tellectual functioning R41.83 and Extreme poverty Z59.5 [place] [address] [address] Apr, [place] [address] [address] 07 Apr, 2018 Bipolar 1 disorder F31.9 ; Borderline in tellectual functioning R41.83 and Extreme poverty Z59.5 [place] [address] [address] 05 Apr, 2018 Irritable bowel syndrome with diarrhea K 58.0 and Dental abscess K04.7 [place] [address] [address] Mar, [place] [address] [address] Mar, [place] [address] [address] Mar, Bipolar 1 disorder F31.9 ; Borderline in tellectual functioning R41.83 and Extreme poverty Z59.5 [place] [address] [address] Mar, Hypertriglyceridemia E78.1 [place] [address] [address] Mar, Borderline intellectual functioning R41. 83 and Bipolar disorder, in partial remission, most recent episode manic F31.73 [place] [address] [address] Mar, Bipolar 1 disorder F31.9 ; Borderline in tellectual functioning R41.83 and Extreme poverty Z59.5 [place] [address] [address] Feb, Generalized abdominal pain R10.84 and Di arrhea, unspecified type R19.7 [place] [address] [address] Feb, [place] [address] [address] Feb, Myalgia M79.10 and Nausea R11.0 [place] [address] [address] Feb, Bipolar 1 disorder F31.9 ; Borderline in tellectual functioning R41.83 and Extreme poverty Z59.5 [place] [address] [address] Feb, [place] [address] [place] [address] Feb, Diabetes E11.9 ; Hyperglycemia R73.9 and Diarrhea, unspecified R19.[address] [address] Feb, Diarrhea, unspecified type R19.7 ; Abdom inal pain R10.9 and Encounter for immunization Z23 [place] [address] [address] Jan, Bipolar 1 disorder F31.9 ; Borderline in tellectual functioning R41.83 and Extreme poverty Z59.5 [place] [address] [address] Dec, Bipolar 1 disorder F31.9 ; Borderline in tellectual functioning R41.83 and Extreme poverty Z59.5 [place] [address] [address] Nov, [address] [address] Nov, Hypertriglyceridemia E78.1 [place] [address] [address] Nov, Bipolar 1 disorder F31.9 ; Borderline in tellectual functioning R41.83 and Extreme poverty Z59.5 [place] [address] [address] Nov, Type 2 diabetes mellitus with complicati on E11.[address] [place] [address] 18 Nov, 2017 Borderline intellectual functioning R41. 83 and Bipolar disorder, in partial remission, most recent episode manic F31.73 [place] [address] [address] 12 Nov, 2017 Type 2 diabetes mellitus with complicati on E11.8 [place] [address] [address] Nov, Bipolar 1 disorder F31.9 ; Borderline in tellectual functioning R41.83 and Extreme poverty Z59.5 [place] [address] [address] Nov, Type 2 diabetes mellitus with complicati on E11.8 ; Pain of left upper arm M79.622 ; Pain in right upper arm M79.621 ; Hyperglycemia R73.9 ; Lumbago with sciatica, left side M54.42 and Other chronic pain G89.29 [place] [address] [address] Oct, Bipolar 1 disorder F31.9 ; Borderline in tellectual functioning R41.83 and Extreme poverty Z59.5 [place] [address] [address] Oct, Type 2 diabetes mellitus with hyperglyce didi E11.65 ; correction current use of insulin Z79.4 and Other acute gastritis without hemorrhage K29.00 [place] [address] [address] Oct, Bipolar 1 disorder F31.9 ; Borderline in tellectual functioning R41.83 and Extreme poverty Z59.5 [place] [address] [address] Sep, Diarrhea, unspecified R19.7 and Vomiting , unspecified R11.10 [place] [address] [address] Aug, Type 2 diabetes mellitus with complicati on E11.8 [place] [address] [place] [id number] [place] [address] Aug, [facility] [address] [address] Aug, Bipolar 1 disorder F31.9 ; Borderline in tellectual functioning R41.83 and Extreme poverty Z59.5 [place] [address] [place] [id number] [place] [address] Aug, Borderline intellectual functioning R41. 83 and Bipolar disorder, in partial remission, most recent episode manic F31.73 [place] [address] [address] Aug, Bipolar 1 disorder F31.9 [place] [address] [address] Aug, [place] [address] [address] Aug, [place] [address] [address] Aug, Bipolar 1 disorder F31.9 ; Borderline in tellectual functioning R41.83 and Extreme poverty Z59.5 [place] [address] [place] [id number] [place] [address] July, Type 2 diabetes mellitus with complicati on E11.8 [place] [address] [place] [id number] [place] [address] July, Bipolar 1 disorder F31.9 ; Borderline in tellectual functioning R41.83 and Extreme poverty Z59.5 [place] [address] [place] [id number] [place] [address] Jun, Bipolar 1 disorder F31.9 ; Borderline in tellectual functioning R41.83 and Extreme poverty Z59.5 [place] [address] [place] [id number] [place] [address] Jun, Bipolar 1 disorder F31.9 ; Borderline in tellectual functioning R41.83 and Extreme poverty Z59.5 [place] [address] [address] Jun, Bipolar 1 disorder F31.9 ; Borderline in tellectual functioning R41.83 and Extreme poverty Z59.5 [place] [address] [address] May, Urinary tract infection without hematuri a, site unspecified N39.0 [place] [address] [address] May, Bipolar 1 disorder F31.9 ; Borderline in tellectual functioning R41.83 and Extreme poverty Z59.5 [place] [address] [address] Apr, Diabetes E11.9 and Breast cancer screeni ng Z12.31 [place] [address] [address] Apr, Bipolar 1 disorder F31.9 and 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 [place] [address] [address] Mar, Bipolar 1 disorder F31.9 ; Borderline in tellectual functioning R41.83 and Extreme poverty Z59.5 [place] [address] [address] Mar, New daily persistent headache G44.52 ; L eg pain 729.5 and History of carpal tunnel release Z98.890 [place] [address] [address] Mar, Hyperlipidemia, unspecified E78.5 [place] [address] [address] Mar, Bipolar 1 disorder F31.9 ; Borderline in tellectual functioning R41.83 and Extreme poverty Z59.5 [place] [address] [address] Feb, Bipolar 1 disorder F31.9 ; Borderline in tellectual functioning R41.83 and Extreme poverty Z59.5 [place] [address] [address] Feb, Diabetes E11.9 [place] [address] [address] Feb, Viral syndrome B34.9 [place] [address] [address] Jan, Other viral agents as the cause of disea ses classified elsewhere B97.89 and Acute upper respiratory infection, unspecified J06.9 [place] [address] [address] Jan, Bipolar 1 disorder F31.9 and Borderline intellectual functioning R41.[address] [address] Jan, Bipolar 1 disorder F31.9 ; Borderline in tellectual functioning R41.83 and Extreme poverty Z59.5 [place] [address] [address] Dec, Diabetes E11.9 [place] [address] [address] Dec, Diabetes E11.9 and Encounter for immuniz ation Z23 [address] [address] Dec, Bipolar 1 disorder F31.9 ; Borderline in tellectual functioning R41.83 and Extreme poverty Z59.5 [place] [address] [address] Dec, Back pain M54.9 [place] [address] [address] Nov, [address] [address] 06 Nov, 2016 Bipolar 1 disorder F31.9 ; Borderline in tellectual functioning R41.83 and Extreme poverty Z59.5 [place] [address] [address] Nov, Bipolar 1 disorder F31.9 ; Borderline in tellectual functioning R41.83 and Extreme poverty Z59.5 [place] [address] [address] Oct, Borderline intellectual functioning R41. 83 and Bipolar 1 disorder F31.9 [place] [address] [address] Oct, Bipolar 1 disorder F31.9 ; Borderline in tellectual functioning R41.83 and Extreme poverty Z59.5 [place] [address] [address] Oct, Back pain M54.9 [place] [address] [address] Oct, Borderline intellectual functioning R41. 83 and Type 2 diabetes mellitus with complication E11.8 [place] [address] [address] Sep, Bipolar 1 disorder F31.9 ; Borderline in tellectual functioning R41.83 and Extreme poverty Z59.5 [place] [address] [address] Sep, Borderline intellectual functioning R41. 83 and Bipolar 1 disorder F31.9 [place] [address] [address] Sep, Bipolar 1 disorder F31.9 ; Borderline in tellectual functioning R41.83 and Extreme poverty Z59.5 [place] [address] [address] Aug, Diabetes E11.9 ; Hyperlipidemia, unspeci fied E78.5 and Lumbar radiculopathy M54.16 [place] [address] [address] Aug, Bipolar 1 disorder F31.9 ; Borderline in tellectual functioning R41.83 and Extreme poverty Z59.5 [place] [address] [address] Aug, [facility] [address] [place] [id number] [place] [address] Aug, [facility] [address] [place] [id number] [place] [address] Aug, [facility] [address] [place] [id number] [place] [address] July, [facility] [address] [place] [id number] [place] [address] July, Acute bilateral low back pain with right -sided sciatica M54.41 [place] [address] [place] [id number] [place] [address] July, Bipolar 1 disorder F31.9 ; Borderline in tellectual functioning R41.83 and Extreme poverty Z59.5 [place] [address] [place] [id number] [place] [address] July, Back pain M54.9 and Diabetes E11.9 [place] [address] [place] [id number] [place] [address] Jun, Bipolar 1 disorder F31.9 ; Borderline in tellectual functioning R41.83 and Extreme poverty Z59.5 [place] [address] [place] [id number] [place] [address] Jun, Bipolar 1 disorder F31.9 ; Borderline in tellectual functioning R41.83 and Extreme poverty Z59.5 [place] [address] [place] [id number] [place] [address] May, Visit for pelvic exam Z01.419 ; Acute va ginitis N76.0 and Diabetes E11.9 [facility] [address] [place] [id number] [place] [address] May, Bipolar 1 disorder F31.9 ; Borderline in tellectual functioning R41.83 and Extreme poverty Z59.5 [place] [address] [place] [id number] [place] [address] May, [facility] [address] [address] 07 May, 2016 [place] [address] [address] May, Bipolar 1 disorder F31.9 ; Borderline in tellectual functioning R41.83 and Extreme poverty Z59.5 [place] [address] [address] May, Hyperlipidemia, unspecified E78.5 [place] [address] [address] 13 Apr, 2016 Breast cancer screening Z12.39 [place] [address] [address] Mar, [place] [address] [address] Mar, Bipolar disorder, current episode mixed, unspecified F31.[address] [address] Mar, Bipolar 1 disorder F31.9 ; Borderline in tellectual functioning R41.83 and Extreme poverty Z59.5 [place] [address] [address] Feb, Acute nasopharyngitis J00 [address] [address] Feb, Dental examination Z01.[address] [address] Feb, Dental cavities K02.9 and Chronic period ontitis, unspecified K05.[address] [address] Feb, Low back pain M54.5 and Extreme poverty Z59.5 [place] [address] [address] Feb, [address] [address] Feb, Routine gynecological examination V72.31 ; Breast cancer screening Z12.39 and Herpes simplex type [address] infection [address] [address] Feb, Diabetes E11.9 [place] [address] [address] Feb, Encounter for dental examination and leti aning without abnormal findings Z01.20 [place] [address] [address] Jan, Hyperlipidemia, unspecified E78.[address] [address] Jan, Bipolar 1 disorder F31.9 ; Borderline in tellectual functioning R41.83 and Extreme poverty Z59.[address] [address] Jan, Diabetes E11.9 [place] [address] [address] 17 Jan, 2016 Diabetes E11.[address] [address] 14 Dec, 2015 Bipolar 1 disorder F31.9 ; Borderline in tellectual functioning R41.83 and Extreme poverty Z59.[address] [address] 13 Dec, 2015 Bipolar disorder, current episode mixed, unspecified F31.60 and Borderline intellectual functioning R41.[address] [address] 16 Nov, 2015 Bipolar 1 disorder F31.9 ; Borderline in tellectual functioning R41.83 ; Extreme poverty Z59.5 and Non compliance with medical treatment Z91.19 [place] [address] [address] Oct, [address] [address] Oct, Dental caries K02.9 [place] [address] [address] Oct, Low back pain M54.5 and Other chronic pa in G89.29 [place] [address] [address] Oct, Bipolar 1 disorder F31.9 ; Borderline in tellectual functioning R41.83 ; Extreme poverty Z59.5 and Non compliance with medical treatment Z91.19 [place] [address] [address] Oct, [place] [address] [address] Oct, [place] [address] [address] Oct, Dental examination Z01.20 [place] [address] [address] Oct, Bipolar 1 disorder F31.9 ; Borderline in tellectual functioning R41.83 ; Extreme poverty Z59.5 and Non compliance with medical treatment Z91.19 [place] [address] [address] Oct, [place] [address] [address] Sep, Type 2 diabetes mellitus with complicati on E11.8 [place] [address] [address] Sep, Bipolar disorder, current episode mixed, unspecified F31.60 [place] [address] [address] Sep, Bipolar disorder, current episode mixed, unspecified F31.60 [place] [address] [address] Sep, Bipolar disorder, in partial remission, most recent episode manic F31.73 ; 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 ; Extreme poverty Z59.5 and Non compliance with medical treatment Z91.19 [place] [address] [address] 15 Aug, 2015 Bipolar disorder, in partial remission, most recent episode manic F31.73 ; 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 ; Extreme poverty Z59.5 and Non compliance with medical treatment Z91.19 [place] [address] [address] Aug, Bipolar disorder, in partial remission, most recent episode manic F31.73 ; 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 ; Extreme poverty Z59.5 and Non compliance with medical treatment Z91.19 [place] [address] [address] Aug, [place] [address] [address] July, Bipolar disorder, in partial remission, most recent episode manic F31.73 ; 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 ; Extreme poverty Z59.5 and Non compliance with medical treatment Z91.19 [place] [address] [address] July, Bipolar disorder, current episode mixed, unspecified F31.60 [place] [address] [address] July, Bipolar disorder, in partial remission, most recent episode manic F31.73 ; 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 ; Extreme poverty Z59.5 and Non compliance with medical treatment Z91.19 [place] [address] [address] July, correction current use of opiate analgesi c Z79.891 and Chronic pain G89.29 [place] [address] [address] Jun, 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 c Z79.891 and Bipolar 1 disorder F31.9 [place] [address] [address] Jun, [place] [address] [address] Jun, [place] [address] [address] Jun, [place] [address] [address] Jun, Bipolar disorder, in partial remission, most recent episode manic F31.73 ; 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 and Non compliance with medical treatment Z91.19 [place] [address] [address] May, Bipolar disorder, in partial remission, most recent episode manic F31.73 ; 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 and Non compliance with medical treatment Z91.19 [place] [address] [address] May, Bipolar disorder, in partial remission, most recent episode manic F31.73 [place] [address] [address] May, Diabetes E11.9 and Chronic pain G89.29 [place] [address] [address] May, [place] [address] [address] May, Bipolar disorder, in partial remission, most recent episode manic F31.73 ; Non compliance with medical treatment Z91.19 and 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 [place] [address] [address] May, Type 2 diabetes mellitus with complicati on E11.8 and Back pain M54.9 [place] [address] [address] May, Bipolar disorder, in partial remission, most recent episode manic F31.73 and 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 [place] [address] [address] Apr, [place] [address] [address] Apr, [place] [address] [address] Apr, [place] [address] [address] 09 Apr, 2015 Diabetes E11.9 ; Irritable bowel syndrom e with diarrhea K58.0 and Lumbar radiculopathy M54.16 [place] [address] [address] Apr, Breast screening Z12.39 [place] [address] [address] Apr, Bipolar disorder, in partial remission, most recent episode manic F31.73 ; Non compliance with medical treatment Z91.19 and 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 [place] [address] [address] Mar, Edema, unspecified type R60.9 and Type 2 diabetes mellitus with complication E11.[address] [address] Mar, Bipolar disorder, in partial remission, most recent episode manic F31.73 ; Non compliance with medical treatment Z91.19 ; 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 and Extreme poverty Z59.5 [place] [address] [address] Mar, Bipolar disorder, current episode mixed, unspecified F31.60 ; 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 ; Extreme poverty Z59.5 and Generalized anxiety disorder F41.1 [place] [address] [address] Mar, Bipolar disorder, in partial remission, most recent episode manic F31.73 ; 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 and Extreme poverty Z59.[address] [address] Feb, Bipolar disorder, in partial remission, most recent episode manic F31.73 ; 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 and Extreme poverty Z59.5 [place] [address] [address] Feb, Bipolar disorder, in partial remission, most recent episode manic F31.73 ; 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 and Extreme poverty Z59.5 [place] [address] [address] Feb, [place] [address] [address] Jan, Type 2 diabetes mellitus with complicati on E11.8 and Petechiae R23.3 [place] [address] [address] Jan, Type 2 diabetes mellitus with complicati on E11.8 ; Edema, unspecified R60.9 ; Petechiae R23.3 and Diabetes E11.9 [place] [address] [address] Jan, Bipolar disorder, in partial remission, most recent episode manic F31.73 ; 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 and Extreme poverty Z59.5 [place] [address] [address] Jan, Bipolar disorder, in partial remission, most recent episode manic F31.73 ; 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 and Extreme poverty Z59.5 [place] [address] [address] Dec, Bipolar disorder, in partial remission, most recent episode manic F31.73 [place] [address] [address] Dec, Edema, due to unspecified malnutrition t ype, unspecified edema R60.9 and Essential hypertension I10 [place] [address] [address] Dec, Bipolar disorder, in partial remission, most recent episode manic F31.73 [facility] [address] [address] Nov, Bipolar I disorder, most recent episode (or current) mixed, unspecified 296.60 [facility] [address] [address] Nov, Stress incontinence, female 625.6 ; Back pain 724.5 and Leg pain 729.5 [facility] [address] [address] Nov, Generalized anxiety disorder 300.02 and Bipolar II disorder 296.89 [facility] [address] [address] Nov, Bipolar I disorder, most recent episode (or current) mixed, unspecified 296.60 [facility] [address] [address] Oct, [facility] [address] [address] Oct, [facility] [address] [address] Oct, [facility] [address] [address] Oct, Bipolar I disorder, most recent episode (or current) mixed, unspecified 296.60 [facility] [address] [address] Sep, Diabetes 250.00 [facility] [address] [address] Sep, Bipolar I disorder, most recent episode (or current) mixed, unspecified 296.60 [facility] [address] [address] Sep, [facility] [address] [address] Sep, [facility] [address] [address] Sep, Bipolar I disorder, most recent episode (or current) mixed, unspecified 296.60 [facility] [address] [address] Sep, Bipolar I disorder, most recent episode (or current) mixed, unspecified 296.60 [facility] [address] [address] Sep, [facility] [address] [address] Sep, Anxiety 300.00 ; Diabetes 250.00 and Hyp erlipidemia 272.4 [place] [address] [address] Aug, [place] [address] [address] Aug, [place] [address] [address] Aug, [facility] [address] [address] Aug, Bipolar I disorder, most recent episode (or current) mixed, unspecified 296.60 [place] [address] [address] Aug, Generalized anxiety disorder 300.02 and Bipolar II disorder 296.89 [place] [address] [address] July, Bipolar I disorder, most recent episode (or current) mixed, unspecified 296.60 [facility] [address] [address] July, Cough 786.2 [facility] [address] [address] July, Bipolar I disorder, most recent episode (or current) mixed, unspecified 296.60 [facility] [address] [address] Jun, Diabetes 250.00 [facility] [address] [place] [address] [place] [address] 14 Jun, 2014 [facility] [place] [facility] [address] [facility] [id number] [place] [address] 13 Jun, 2014 [facility] [place] [facility] [address] [id number] [place] [address] 24 May, 2014 [facility] [place] [facility] [address] [id number] [place] [address] 24 May, 2014 [facility] [place] [facility] [address] [id number] [place] [address] 10 May, 2014 [facility] [place] [facility] [address] [id number] [place] [address] 10 May, 2014 [facility] [place] [facility] [address] [id number] [place] [address] 10 May, 2014 [facility] [place] [facility] [address] [id number] [place] [address] 10 May, 2014 [facility] [place] [facility] [address] [id number] [place] [address] Apr, 2014 [facility] [place] [facility] [address] [id number] [place] [address] Apr, 2014 [facility] [place] [facility] [address] [id number] [place] [address] Apr, 2014 [facility] [place] [facility] [address] [id number] [place] [address] Apr, 2014 [facility] [place] [facility] [address] [id number] [place] [address] 10 Apr, 2014 [facility] [place] [facility] [address] [id number] [place] [address] 10 Apr, 2014 [facility] [place] [facility] [address] [id number] [place] [address] 05 Apr, 2014 [facility] [place] [facility] [address] [id number] [place] [address] 05 Apr, 2014 [facility] [place] [facility] [address] [id number] [place] [address] Mar, [facility] [place] [facility] [address] [facility] [id number] [place] [address] Mar, [facility] [place] [facility] [address] [facility] [id number] [place] [address] Mar, [facility] [place] [facility] [address] [id number] [place] [address] Mar, [facility] [place] [facility] [address] [id number] [place] [address] Mar, [facility] [place] [facility] [address] [facility] [id number] [place] [address] Mar, [facility] [place] [facility] [address] [id number] [place] [address] Mar, [facility] [place] [facility] [address] [id number] [place] [address] Mar, [facility] [place] [facility] [address] [id number] [place] [address] Feb, [facility] [place] [facility] [address] [facility] [id number] [place] [address] Feb, [facility] [place] [facility] [address] [id number] [place] [address] Feb, [facility] [place] [facility] [address] [id number] [place] [address] Feb, [facility] [place] [facility] [address] [id number] [place] [address] Feb, [facility] [place] [facility] [address] [facility] [id number] [place] [address] Feb, [facility] [place] [facility] [address] [id number] [place] [address] Feb, [facility] [place] [facility] [address] [id number] [place] [address] Feb, [facility] [place] [facility] [address] [id number] [place] [address] Feb, [facility] [place] [facility] [address] [id number] [place] [address] Feb, [facility] [place] [facility] [address] [id number] [place] [address] Jan, [facility] [place] [facility] [address] [id number] [place] [address] Jan, [facility] [place] [facility] [address] [id number] [place] [address] Jan, [facility] [place] [facility] [address] [id number] [place] [address] Jan, [facility] [place] [facility] [address] [id number] [place] [address] Jan, [facility] [place] [facility] [address] [id number] [place] [address] Jan, [facility] [place] [facility] [address] [id number] [place] [address] Jan, [facility] [place] [facility] [address] [id number] [place] [address] Jan, [facility] [place] [facility] [address] [id number] [place] [address] Jan, [facility] [place] [facility] [address] [id number] [place] [address] Jan, [facility] [place] [facility] [address] [id number] [place] [address] Jan, [facility] [place] [facility] [address] [id number] [place] [address] Jan, [facility] [place] [facility] [address] [id number] [place] [address] Jan, [facility] [place] [facility] [address] [place] [id number] [place] [address] Jan, [facility] [place] [facility] [address] [id number] [place] [address] Jan, [facility] [place] [facility] [address] [id number] [place] [address] Dec, [facility] [place] [facility] [address] [id number] [place] [address] 20 Dec, 2013 [facility] [place] [facility] [address] [id number] [place] [address] 16 Dec, 2013 [facility] [place] [facility] [address] [id number] [place] [address] 16 Dec, 2013 [facility] [place] [facility] [address] [id number] [place] [address] 09 Dec, 2013 [facility] [place] [facility] [address] [id number] [place] [address] 09 Dec, 2013 [facility] [place] [facility] [address] [id number] [place] [address] 07 Dec, 2013 [facility] [place] [facility] [address] [id number] [place] [address] 07 Dec, 2013 [facility] [place] [facility] [address] [id number] [place] [address] 25 Sep, 2013 [facility] [place] [facility] [address] [id number] [place] [address] 25 Sep, 2013 [facility] [place] [facility] [address] [id number] [place] [address] 10 Sep, 2013 [facility] [place] [facility] [address] [id number] [place] [address] 10 Sep, 2013 [facility] [place] [facility] [address] [id number] [place] [address] 08 Sep, 2013 [facility] [place] [facility] [address] [id number] [place] [address] 08 Sep, 2013 [facility] [place] [facility] [address] [id number] [place] [address] 08 Sep, 2013 [facility] [place] [facility] [address] [id number] [place] [address] 08 Sep, 2013 [facility] [place] [facility] [address] [id number] [place] [address] 08 Sep, 2013 [facility] [place] [facility] [address] [id number] [place] [address] 08 Sep, 2013 [facility] [place] [facility] [address] [id number] [facility] [place] [address] 04 Nov, 2013 [facility] [place] [facility] [address] [facility] [id number] [facility] [place] [address] 04 Nov, 2013 [facility] [place] [facility] [address] [facility] [id number] [facility] [address] 03 Nov, 2013 [facility] [place] [facility] [address] [id number] [place] [address] Nov, 2013 [facility] [place] [facility] [address] [facility] [id number] [place] [address] Nov, 2013 [facility] [place] [facility] [address] [id number] [place] [address] Oct, [facility] [place] [facility] [address] [facility] [id number] [facility] [place] [address] Oct, [facility] [place] [facility] [address] [id number] [facility] [place] [address] Oct, [facility] [place] [facility] [address] [facility] [id number] [facility] [address] Oct, [facility] [place] [facility] [address] [id number] [facility] [place] [address] Oct, [facility] [place] [facility] [address] [facility] [id number] [place] [address] Oct, [facility] [place] [facility] [address] [id number] [place] [address] Oct, [facility] [place] [facility] [address] [facility] [id number] [place] [address] Oct, [facility] [place] [facility] [address] [id number] [place] [address] Oct, [facility] [place] [facility] [address] [facility] [id number] [place] [address] Oct, [facility] [place] [facility] [address] [id number] [place] [address] Oct, [facility] [place] [facility] [address] [id number] [place] [address] Oct, [facility] [place] [facility] [address] [id number] [place] [address] Oct, [facility] [place] [facility] [address] [facility] [id number] [place] [address] Oct, [facility] [place] [facility] [address] [id number] [place] [address] Sep, [facility] [place] [facility] [address] [facility] [id number] [place] [address] Sep, [facility] [place] [facility] [address] [facility] [id number] [place] [address] Sep, [facility] [place] [facility] [address] [id number] [place] [address] Sep, [facility] [place] [facility] [address] [id number] [place] [address] Sep, [facility] [place] [facility] [address] [id number] [place] [address] Sep, [facility] [place] [facility] [address] [id number] [place] [address] Sep, [facility] [place] [facility] [address] [id number] [place] [address] Sep, [facility] [place] [facility] [address] [id number] [place] [address] Aug, [facility] [place] [facility] [address] [id number] [place] [address] Aug, [facility] [place] [facility] [address] [id number] [place] [address] Aug, [facility] [place] [facility] [address] [id number] [place] [address] Aug, [facility] [place] [facility] [address] [id number] [place] [address] Aug, [facility] [place] [facility] [address] [id number] [place] [address] Aug, [facility] [place] [facility] [address] [id number] [place] [address] Aug, [facility] [place] [facility] [address] [id number] [place] [address] Aug, [facility] [place] [facility] [address] [id number] [place] [address] July, [facility] [place] [facility] [address] [id number] [place] [address] July, [facility] [place] [facility] [address] [id number] [place] [address] July, [facility] [place] [facility] [address] [id number] [place] [address] July, [facility] [place] [facility] [address] [id number] [place] [address] July, [facility] [place] [facility] [address] [id number] [place] [address] July, [facility] [place] [facility] [address] [id number] [place] [address] July, [facility] [place] [facility] [address] [id number] [place] [address] July, [facility] [place] [facility] [address] [id number] [place] [address] Jun, [facility] [place] [facility] [address] [id number] [place] [address] Jun, [facility] [place] [facility] [address] [id number] [place] [address] Jun, [facility] [place] [facility] [address] [id number] [place] [address] Jun, [facility] [place] [facility] [address] [id number] [place] [address] Jun, [facility] [place] [facility] [address] [id number] [place] [address] Jun, [facility] [place] [facility] [address] [id number] [place] [address] Jun, [facility] [place] [facility] [address] [facility] [id number] [facility] [address] Jun, [facility] [place] [facility] [address] [facility] [id number] [facility] [place] [address] Jun, [facility] [place] [facility] [address] [facility] [id number] [place] [address] Jun, [facility] [address] [facility] [id number] [facility] [place] [address] Jun, [facility] [address] [facility] [id number] [facility] [place] [address] Jun, [facility] [address] [id number] [place] [id number] May, [facility] [address] [id number] [place] [id number] May, [facility] [address] [id number] [facility] [place] [address] May, [facility] [address] [facility] [id number] [place] [address] May, [facility] [address] [id number] [place] [address] May, [facility] [address] [id number] [place] [address] May, [facility] [address] [id number] [place] [address] May, [facility] [address] [facility] [id number] [place] [address] May, [facility] [address] [facility] [id number] [place] [address] May, [facility] [address] [facility] [id number] [place] [address] May, [facility] [address] [id number] [place] [address] May, [facility] [address] [id number] [facility] [place] [address] May, [facility] [address] [facility] [id number] [place] [id number] May, [facility] [address] [id number] [place] [address] May, [facility] [address] [id number] [place] [address] Apr, [facility] [address] [id number] [place] [address] Apr, [facility] [address] [id number] [place] [address] Apr, [facility] [address] [id number] [place] [address] Apr, [facility] [address] [id number] [place] [address] Apr, [facility] [address] [id number] [place] [address] Apr, [facility] [address] [id number] [place] [address] Mar, [facility] [address] [id number] [place] [address] Mar, [facility] [address] [id number] [place] [address] Mar, [facility] [address] [id number] [place] [address] Mar, [facility] [address] [facility] [id number] [place] [address] Mar, [facility] [address] [id number] [place] [address] Mar, [facility] [address] [id number] [place] [address] Mar, [facility] [address] [facility] [id number] [place] [address] Mar, [facility] [address] [id number] [place] [address] Mar, [facility] [address] [id number] [place] [address] Mar, [facility] [address] [id number] [place] [address] Mar, [facility] [address] [id number] [place] [address] Mar, [facility] [address] [id number] [place] [address] Mar, [facility] [address] [id number] [place] [address] Mar, [facility] [address] [id number] [place] [address] Feb, [facility] [address] [id number] [place] [address] Feb, [facility] [address] [id number] [place] [address] Feb, [facility] [address] [id number] [place] [address] Feb, [facility] [address] [id number] [place] [address] Feb, [facility] [address] [id number] [place] [address] Feb, [facility] [address] [id number] [place] [address] Feb, [facility] [address] [id number] [place] [address] Feb, [facility] [address] [id number] [place] [address] Feb, [facility] [address] [id number] [place] [address] Feb, [facility] [address] [id number] [place] [address] 09 Feb, 2012 [facility] [address] [facility] [id number] [place] [address] 09 Feb, 2012 [facility] [address] [id number] [place] [address] 05 Feb, 2012 [facility] [address] [id number] [place] [address] 05 Feb, 2012 [facility] [address] [id number] [place] [address] 05 Feb, 2012 [facility] [address] [facility] [id number] [place] [address] 05 Feb, 2012 [facility] [address] [id number] [place] [address] 24 Dec, 2012 [facility] [address] [id number] [place] [address] 24 Dec, 2012 [facility] [address] [id number] [place] [address] 16 Dec, 2012 [facility] [address] [id number] [place] [address] 16 Dec, 2012 [facility] [address] [id number] [place] [address] 16 Dec, 2012 [facility] [address] [id number] [place] [address] 16 Dec, 2012 [facility] [address] [id number] [place] [address] 14 Dec, 2012 [facility] [address] [id number] [place] [address] 14 Dec, 2012 [facility] [address] [id number] [place] [address] 10 Dec, 2012 [facility] [address] [id number] [place] [address] 10 Dec, 2012 [facility] [address] [id number] [place] [address] 10 Dec, 2012 [facility] [address] [facility] [id number] [facility] [place] [address] 10 Dec, 2012 [facility] [address] [facility] [id number] [place] [address] Dec, [facility] [address] [facility] [id number] [place] [address] 25 Nov, 2012 [facility] [address] [id number] [place] [address] 20 Nov, 2012 [facility] [address] [facility] [id number] [place] [address] 18 Nov, 2012 [facility] [address] [facility] [id number] [place] [address] 16 Nov, 2012 [facility] [address] [id number] [place] [address] 12 Nov, 2012 [facility] [address] [id number] [place] [address] 11 Nov, 2012 [facility] [address] [id number] [place] [address] 05 Nov, 2012 [facility] [address] [id number] [place] [address] 15 Oct, 2012 [facility] [address] [id number] [place] [address] Oct, [facility] [address] [id number] [place] [address] Sep, [facility] [address] [id number] [place] [address] Sep, [facility] [address] [facility] [id number] [place] [address] Sep, [facility] [address] [id number] [place] [address] Sep, [facility] [address] [id number] [place] [address] Sep, [facility] [address] [id number] [place] [address] Sep, [facility] [address] [facility] [id number] [place] [address] 08 Sep, 2012 [facility] [address] [id number] [place] [address] Aug, [facility] [address] [id number] [place] [address] 18 Aug, 2012 [facility] [address] [id number] [place] [address] 16 Aug, 2012 [facility] [address] [facility] [id number] [place] [address] Aug, [facility] [address] [id number] [place] [address] Aug, [facility] [address] [id number] [place] [address] Aug, [facility] [address] [id number] [place] [address] Aug, [facility] [address] [id number] [place] [address] Aug, [facility] [address] [id number] [place] [address] July, [facility] [address] [id number] [place] [address] July, [facility] [address] [id number] [place] [address] July, [facility] [address] [facility] [id number] [place] [id number] July, [facility] [address] [id number] [place] [address] July, [facility] [address] [id number] [place] [address] Jun, [facility] [address] [id number] [place] [address] May, [facility] [address] [id number] [place] [address] 14 May, 2012 [facility] [address] [id number] [place] [address] 04 May, 2012 [facility] [address] [id number] [place] [address] Apr, [facility] [address] [id number] [place] [address] Apr, [facility] [address] [id number] [place] [address] Apr, [facility] [address] [id number] [place] [address] Mar, [facility] [address] [id number] [place] [address] Mar, [facility] [address] [id number] [place] [address] Mar, [facility] [address] [id number] [place] [address] Mar, [facility] [address] [id number] [place] [address] Mar, [facility] [address] [id number] [place] [address] Mar, [facility] [address] [id number] [place] [address] Mar, [facility] [address] [id number] [place] [address] Feb, [facility] [address] [id number] [place] [address] 31 Feb, 2012 [facility] [address] [id number] [place] [address] 18 Feb, 2012 [facility] [address] [id number] [place] [address] 18 Feb, 2012 [facility] [address] [id number] [place] [address] 17 Feb, 2012 [facility] [address] [id number] [place] [address] Feb, [facility] [address] [id number] [place] [address] Feb, [facility] [address] [id number] [place] [address] Feb, [facility] [address] [id number] [place] [address] Jan, [facility] [address] [id number] [place] [address] Jan, [facility] [address] [id number] [place] [address] Jan, [facility] [address] [id number] [place] [address] Jan, [facility] [address] [id number] [place] [address] Jan, [facility] [address] [id number] [place] [address] Jan, [facility] [address] [id number] [place] [address] Jan, [facility] [address] [id number] [place] [address] Jan, [facility] [address] [id number] [place] [address] Jan, [facility] [address] [id number] [place] [address] Jan, [facility] [address] [id number] [place] [address] Jan, [facility] [id number] [place] [address] Jan, [facility] [address] [id number] [place] [address] Jan, [facility] [address] [id number] [place] [address] Jan, [facility] [address] [id number] [place] [address] Jan, [facility] [address] [id number] [place] [address] Jan, [facility] [address] [id number] [place] [address] Dec, [facility] [address] [id number] [place] [address] Dec, [facility] [address] [id number] [place] [address] Dec, [facility] [address] [id number] [place] [address] Dec, [facility] [address] [id number] [place] [address] Dec, [facility] [address] [id number] [place] [address] Dec, [facility] [address] [id number] [place] [address] Dec, [facility] [address] [id number] [place] [address] Dec, [facility] [address] [id number] [place] [address] 08 Dec, 2011 [facility] [address] [id number] [place] [address] 05 Dec, 2011 [facility] [address] [id number] [place] [address] 18 Nov, 2011 [facility] [address] [id number] [place] [address] 13 Nov, 2011 [facility] [address] [id number] [place] [address] 24 Oct, 2011 [facility] [address] [id number] [place] [address] Oct, [facility] [address] [id number] [facility] [place] [address] 17 Oct, 2011 [facility] [address] [id number] [facility] [place] [address] Oct, [facility] [address] [id number] [facility] [place] [address] Oct, [facility] [address] [id number] [facility] [place] [address] Oct, [facility] [address] [id number] [facility] [address] Oct, [facility] [address] [facility] [id number] [facility] [address] Sep, [facility] [address] [id number] [place] [address] Aug, [facility] [address] [id number] [place] [address] Aug, [facility] [address] [id number] [place] [address] Aug, [facility] [address] [id number] [facility] [address] Aug, [facility] [address] [id number] [place] [address] Aug, [facility] [address] [id number] [place] [address] July, [facility] [address] [id number] [place] [address] July, [facility] [address] [id number] [place] [address] July, [facility] [address] [id number] [place] [address] Jun, [facility] [address] [id number] [place] [address] Jun, [facility] [address] [id number] [place] [address] Jun, [facility] [address] [id number] [place] [address] 02 Jun, 2011 [facility] [address] [id number] [place] [address] 30 May, 2011 [facility] [address] [id number] [place] [address] 30 May, 2011 [facility] [address] [id number] [place] [address] 29 May, 2011 [facility] [address] [id number] [place] [address] 28 May, 2011 [facility] [address] [id number] [place] [address] May, [facility] [address] [id number] [place] [address] May, [facility] [address] [id number] [place] [address] May, [facility] [address] [id number] [place] [address] May, [facility] [address] [id number] [place] [address] 08 May, 2011 [facility] [address] [id number] [place] [address] 05 May, 2011 [facility] [address] [id number] [place] [address] May, [facility] [address] [id number] [place] [address] May, [facility] [address] [id number] [place] [address] Mar, [facility] [address] [id number] [place] [address] Mar, [facility] [address] [id number] [place] [address] Feb, [facility] [address] [id number] [place] [address] Feb, [facility] [address] [id number] [place] [address] 20 Feb, 2011 [facility] [address] [id number] [place] [address] 15 Feb, 2011 [facility] [address] [id number] [place] [address] 13 Feb, 2011 [facility] [address] [id number] [place] [address] Feb, [facility] [address] [id number] [place] [address] Feb, [facility] [address] [id number] [place] [address] Jan, [facility] [address] [id number] [place] [address] Jan, [facility] [address] [id number] [place] [address] Jan, [facility] [address] [id number] [place] [address] Jan, [facility] [address] [id number] [place] [address] Jan, [facility] [address] [id number] [place] [address] Jan, [facility] [address] [id number] [place] [address] Dec, [facility] [address] [id number] [place] [address] Dec, [facility] [address] [id number] [place] [address] Dec, [facility] [address] [id number] [place] [address] July, [facility] [address] [id number] [place] [address] July, [facility] [address] [id number] [place] [address] 08 Feb, 2010 [facility] [address] [id number] [place] [address] 18 Jan, 2010 [facility] [address] [id number] [place] [address] Dec, [facility] [address] [id number] [place] [address] 12 Dec, 2009 [facility] [address] [id number] [place] [address] 15 Sep, 2009 [facility] [address] [id number] [place] [address] Aug, [facility] [address] [id number] [place] [address] Jun, [facility] [address] [id number] [place] [address] Jun, [facility] [address] [id number] [place] [address] Jan, [facility] [address] [id number] [place] [address] Jan, [facility] [address] [id number] [place] [address] Jan, [facility] [address] [id number] [place] [address] Jan, [facility] [address] [id number] [place] [address] 29 Dec, 2008 [facility] [address] [id number] [place] [address] Dec, [facility] [address] [id number] [place] [address] 15 Dec, 2008 [facility] [address] [id number] [place] [address] Nov, [facility] [address] [id number] [place] [id number] July, [facility] [address] [id number] [place] [address] May, [facility] [address] [id number] [place] [address] Apr, [facility] [address] [id number] [place] [address] Feb, [facility] [address] [id number] [place] [address] Dec, IMMUNIZATIONS No Known Immunizations SOCIAL HISTORY [...] Surgical History back surgery Laminectomy - [facility] 10[facility]/2014 Surgical History Pain shot in lower back -Dr. Sheehan 08/22 Hospitalization History surgery
--- OUTSIDE RECORDS SUMMARY | 2019-06-22 19:44 | XMS REPORT ---
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 Active 16882267 Problem Irritable bowel syndrome with diarrhea K58.0 Active 860087477 Problem Diabetes E11.9 Active 422954656 Problem Bipolar 1 disorder F31.9 Active 3 97276524 Problem Lumbar radiculopathy M54.16 Active 925090430 Problem Hyperlipidemia, unspecified E78.5 Ac tive 79197404 Problem Acute bilateral low back pain with right-sided sciatica M54.41 Active 919683479 Problem New daily persistent headache G44.52 Active 008840379 Problem Insulin long-term use Z79.4 Active 951758380 Problem Type 2 diabetes mellitus with complication E11.8 Active 085999943 Problem Post laminectomy syndrome M96.1 Acti ve 02035760 Problem Rhinosinusitis J32.9 Active 73733 000 Problem 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 Z79.891 Active 173036670 Problem Eye exam normal Z01.00 Active 2438 20240 Problem Type 2 diabetes mellitus with hyperglycemia E11.65 Active 99027612 Problem Lumbago with sciatica, left side M54.42 Active 495375324 Problem Other chronic pain G89.29 Active 8 2740505 Problem Hypertriglyceridemia E78.1 Active [id number] ALLERGIES No Information ENCOUNTERS Encounter Location Date Diagnosis [facility] [address] [id number] [place] [address] May, [facility] [address] [address] Apr, [facility] [address] [address] Apr, [facility] [address] [address] Mar, Bipolar 1 disorder F31.9 ; Borderline in tellectual functioning R41.83 and Extreme poverty Z59.5 [facility] [address] [address] Mar, Exercise counseling Z71.82 [place] [address] [address] Mar, [place] [address] [address] Mar, Bipolar disorder, in partial remission, most recent episode manic F31.73 and 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 [id number] [address] [place] [address] Feb, Acute low back pain without sciatica, unspecified back pain laterality M54.5 [place] [address] [address] Feb, Bipolar 1 disorder F31.9 ; Borderline in tellectual functioning R41.83 and Extreme poverty Z59.5 [facility] [address] [address] Jan, Bipolar 1 disorder F31.9 ; Borderline in tellectual functioning R41.83 and Extreme poverty Z59.5 [facility] [address] [address] [id number] [place] [address] Jan, [facility] [address] [address] Jan, Type 2 diabetes mellitus with complicati on E11.8 [place] [address] [address] Jan, Type 2 diabetes mellitus with complicati on E11.8 ; Dysuria R30.0 and Diarrhea, unspecified type R19.7 [place] [address] [address] Jan, Bipolar 1 disorder F31.9 ; Borderline in tellectual functioning R41.83 and Extreme poverty Z59.5 [place] [address] [address] Dec, [facility] [address] [address] Dec, [facility] [address] [address] Dec, [facility] [address] [address] Dec, [facility] [address] [address] Dec, Rhinosinusitis J32.9 [facility] [address] [address] Dec, [facility] [address] [address] Dec, Bipolar 1 disorder F31.9 ; Borderline in tellectual functioning R41.83 and Extreme poverty Z59.5 [place] [address] [address] Dec, Type 2 diabetes mellitus with complicati on E11.8 and Type 2 diabetes mellitus with hyperglycemia E11.65 [place] [address] [address] Dec, [place] [address] [address] Dec, Type 2 diabetes mellitus with complicati on E11.8 ; Insulin long-term use Z79.4 ; Hyperglycemia R73.9 and Yeast infection B37.9 [place] [address] [address] Dec, Encounter for immunization Z23 [place] [address] [address] Nov, [place] [address] [address] Nov, Bipolar 1 disorder F31.9 ; Borderline in tellectual functioning R41.83 and Extreme poverty Z59.5 [place] [address] [address] Nov, [place] [address] [address] Nov, [place] [address] [address] Nov, Borderline intellectual functioning R41. 83 and Bipolar disorder, in partial remission, most recent episode manic F31.73 [facility] [address] [facility] [id number] [address] [place] [address] Nov, Epigastric abdominal pain R1 0.13 [place] [address] [address] Nov, Bipolar 1 disorder F31.9 ; Borderline in tellectual functioning R41.83 and Extreme poverty Z59.5 [facility] [address] [place] [id number] [place] [address] Oct, Dysuria R30.0 and Acute cyst itis without hematuria N30.00 [facility] [address] [place] [id number] [place] [address] Oct, [facility] [address] [address] Oct, [facility] [address] [address] Oct, Bipolar 1 disorder F31.9 ; Borderline in tellectual functioning R41.83 and Extreme poverty Z59.5 [place] [address] [address] Oct, [facility] [address] [address] Oct, [facility] [address] [address] Oct, Bipolar disorder, in partial remission, most recent episode manic F31.73 and 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 [place] [address] [address] Oct, Bipolar 1 disorder F31.9 ; Borderline in tellectual functioning R41.83 and Extreme poverty Z59.5 [place] [address] [place] [id number] [place] [address] Oct, Diarrhea, unspecified type R19.7 [facility] [address] [id number] [place] [id number] Sep, Dental examination Z01.20 and Dental car ies K02.9 [facility] [address] [place] [address] Sep, Mouth pain K13.79 [facility] [address] [address] Sep, [facility] [address] [address] Sep, Bipolar 1 disorder F31.9 ; Borderline in tellectual functioning R41.83 and Extreme poverty Z59.5 [place] [address] [address] Sep, [place] [address] [address] Sep, [place] [address] [address] Sep, Diabetes E11.9 ; Hyperglycemia R73.9 ; L eliseo term current use of insulin Z79.4 and Diarrhea, unspecified type R19.7 [place] [address] [address] Sep, [place] [address] [address] Sep, Bipolar 1 disorder F31.9 ; Borderline in tellectual functioning R41.83 and Extreme poverty Z59.5 [place] [address] [address] Sep, [place] [address] [address] Sep, [place] [address] [address] Aug, Bipolar 1 disorder F31.9 ; Borderline in tellectual functioning R41.83 and Extreme poverty Z59.5 [place] [address] [address] Aug, Exercise counseling Z71.82 [place] [address] [address] Aug, Bipolar 1 disorder F31.9 ; Borderline in tellectual functioning R41.83 and Extreme poverty Z59.5 [place] [address] [address] Aug, Borderline intellectual functioning R41. 83 and Bipolar disorder, in partial remission, most recent episode manic F31.73 [facility] [address] [address] Aug, Low back pain M54.5 [facility] [address] [address] Aug, Borderline intellectual functioning R41. 83 and Bipolar disorder, in partial remission, most recent episode manic F31.73 [facility] [address] [address] July, Acute superficial gastritis without hemo rrhage K29.00 ; Low back pain M54.5 and Other chronic pain G89.29 [place] [address] [address] July, [place] [address] [address] July, [place] [address] [address] Jun, [facility] [address] [facility] [id number] [address] [place] [address] Jun, Bilateral lower extremity ed epi R60.0 [place] [address] [address] Jun, Borderline intellectual functioning R41. 83 and Bipolar disorder, in partial remission, most recent episode manic F31.73 [place] [address] [address] Jun, [place] [address] [address] May, Bronchitis J40 [place] [address] [address] May, Screening for breast cancer Z12.31 and E ncounter for immunization Z23 [facility] [address] [address] May, Bipolar 1 disorder F31.9 ; Borderline in tellectual functioning R41.83 and Extreme poverty Z59.5 [place] [address] [address] Apr, [place] [address] [address] 07 Apr, 2018 Bipolar 1 disorder F31.9 ; Borderline in tellectual functioning R41.83 and Extreme poverty Z59.5 [place] [address] [address] 05 Apr, 2018 Irritable bowel syndrome with diarrhea K 58.0 and Dental abscess K04.7 [place] [address] [address] Mar, [place] [address] [address] Mar, [place] [address] [address] Mar, Bipolar 1 disorder F31.9 ; Borderline in tellectual functioning R41.83 and Extreme poverty Z59.5 [place] [address] [address] Mar, Hypertriglyceridemia E78.1 [place] [address] [address] Mar, Borderline intellectual functioning R41. 83 and Bipolar disorder, in partial remission, most recent episode manic F31.73 [place] [address] [address] Mar, Bipolar 1 disorder F31.9 ; Borderline in tellectual functioning R41.83 and Extreme poverty Z59.5 [place] [address] [address] Feb, Generalized abdominal pain R10.84 and Di arrhea, unspecified type R19.7 [place] [address] [address] Feb, [place] [address] [address] Feb, Myalgia M79.10 and Nausea R11.0 [place] [address] [address] Feb, Bipolar 1 disorder F31.9 ; Borderline in tellectual functioning R41.83 and Extreme poverty Z59.5 [place] [address] [address] Feb, [place] [address] [place] [address] Feb, Diabetes E11.9 ; Hyperglycemia R73.9 and Diarrhea, unspecified R19.[address] [address] Feb, Diarrhea, unspecified type R19.7 ; Abdom inal pain R10.9 and Encounter for immunization Z23 [place] [address] [address] Jan, Bipolar 1 disorder F31.9 ; Borderline in tellectual functioning R41.83 and Extreme poverty Z59.5 [place] [address] [address] Dec, Bipolar 1 disorder F31.9 ; Borderline in tellectual functioning R41.83 and Extreme poverty Z59.5 [place] [address] [address] Nov, [address] [address] Nov, Hypertriglyceridemia E78.1 [place] [address] [address] Nov, Bipolar 1 disorder F31.9 ; Borderline in tellectual functioning R41.83 and Extreme poverty Z59.5 [place] [address] [address] Nov, Type 2 diabetes mellitus with complicati on E11.[address] [place] [address] 18 Nov, 2017 Borderline intellectual functioning R41. 83 and Bipolar disorder, in partial remission, most recent episode manic F31.73 [place] [address] [address] 12 Nov, 2017 Type 2 diabetes mellitus with complicati on E11.8 [place] [address] [address] Nov, Bipolar 1 disorder F31.9 ; Borderline in tellectual functioning R41.83 and Extreme poverty Z59.5 [place] [address] [address] Nov, Type 2 diabetes mellitus with complicati on E11.8 ; Pain of left upper arm M79.622 ; Pain in right upper arm M79.621 ; Hyperglycemia R73.9 ; Lumbago with sciatica, left side M54.42 and Other chronic pain G89.29 [place] [address] [address] Oct, Bipolar 1 disorder F31.9 ; Borderline in tellectual functioning R41.83 and Extreme poverty Z59.5 [place] [address] [address] Oct, Type 2 diabetes mellitus with hyperglyce didi E11.65 ; senior living current use of insulin Z79.4 and Other acute gastritis without hemorrhage K29.00 [place] [address] [address] Oct, Bipolar 1 disorder F31.9 ; Borderline in tellectual functioning R41.83 and Extreme poverty Z59.5 [place] [address] [address] Sep, Diarrhea, unspecified R19.7 and Vomiting , unspecified R11.10 [place] [address] [address] Aug, Type 2 diabetes mellitus with complicati on E11.8 [place] [address] [place] [id number] [place] [address] Aug, [facility] [address] [address] Aug, Bipolar 1 disorder F31.9 ; Borderline in tellectual functioning R41.83 and Extreme poverty Z59.5 [place] [address] [place] [id number] [place] [address] Aug, Borderline intellectual functioning R41. 83 and Bipolar disorder, in partial remission, most recent episode manic F31.73 [place] [address] [address] Aug, Bipolar 1 disorder F31.9 [place] [address] [address] Aug, [place] [address] [address] Aug, [place] [address] [address] Aug, Bipolar 1 disorder F31.9 ; Borderline in tellectual functioning R41.83 and Extreme poverty Z59.5 [place] [address] [place] [id number] [place] [address] July, Type 2 diabetes mellitus with complicati on E11.8 [place] [address] [place] [id number] [place] [address] July, Bipolar 1 disorder F31.9 ; Borderline in tellectual functioning R41.83 and Extreme poverty Z59.5 [place] [address] [place] [id number] [place] [address] Jun, Bipolar 1 disorder F31.9 ; Borderline in tellectual functioning R41.83 and Extreme poverty Z59.5 [place] [address] [place] [id number] [place] [address] Jun, Bipolar 1 disorder F31.9 ; Borderline in tellectual functioning R41.83 and Extreme poverty Z59.5 [place] [address] [address] Jun, Bipolar 1 disorder F31.9 ; Borderline in tellectual functioning R41.83 and Extreme poverty Z59.5 [place] [address] [address] May, Urinary tract infection without hematuri a, site unspecified N39.0 [place] [address] [address] May, Bipolar 1 disorder F31.9 ; Borderline in tellectual functioning R41.83 and Extreme poverty Z59.5 [place] [address] [address] Apr, Diabetes E11.9 and Breast cancer screeni ng Z12.31 [place] [address] [address] Apr, Bipolar 1 disorder F31.9 and 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 [place] [address] [address] Mar, Bipolar 1 disorder F31.9 ; Borderline in tellectual functioning R41.83 and Extreme poverty Z59.5 [place] [address] [address] Mar, New daily persistent headache G44.52 ; L eg pain 729.5 and History of carpal tunnel release Z98.890 [place] [address] [address] Mar, Hyperlipidemia, unspecified E78.5 [place] [address] [address] Mar, Bipolar 1 disorder F31.9 ; Borderline in tellectual functioning R41.83 and Extreme poverty Z59.5 [place] [address] [address] Feb, Bipolar 1 disorder F31.9 ; Borderline in tellectual functioning R41.83 and Extreme poverty Z59.5 [place] [address] [address] Feb, Diabetes E11.9 [place] [address] [address] Feb, Viral syndrome B34.9 [place] [address] [address] Jan, Other viral agents as the cause of disea ses classified elsewhere B97.89 and Acute upper respiratory infection, unspecified J06.9 [place] [address] [address] Jan, Bipolar 1 disorder F31.9 and Borderline intellectual functioning R41.[address] [address] Jan, Bipolar 1 disorder F31.9 ; Borderline in tellectual functioning R41.83 and Extreme poverty Z59.5 [place] [address] [address] Dec, Diabetes E11.9 [place] [address] [address] Dec, Diabetes E11.9 and Encounter for immuniz ation Z23 [address] [address] Dec, Bipolar 1 disorder F31.9 ; Borderline in tellectual functioning R41.83 and Extreme poverty Z59.5 [place] [address] [address] Dec, Back pain M54.9 [place] [address] [address] Nov, [address] [address] 06 Nov, 2016 Bipolar 1 disorder F31.9 ; Borderline in tellectual functioning R41.83 and Extreme poverty Z59.5 [place] [address] [address] Nov, Bipolar 1 disorder F31.9 ; Borderline in tellectual functioning R41.83 and Extreme poverty Z59.5 [place] [address] [address] Oct, Borderline intellectual functioning R41. 83 and Bipolar 1 disorder F31.9 [place] [address] [address] Oct, Bipolar 1 disorder F31.9 ; Borderline in tellectual functioning R41.83 and Extreme poverty Z59.5 [place] [address] [address] Oct, Back pain M54.9 [place] [address] [address] Oct, Borderline intellectual functioning R41. 83 and Type 2 diabetes mellitus with complication E11.8 [place] [address] [address] Sep, Bipolar 1 disorder F31.9 ; Borderline in tellectual functioning R41.83 and Extreme poverty Z59.5 [place] [address] [address] Sep, Borderline intellectual functioning R41. 83 and Bipolar 1 disorder F31.9 [place] [address] [address] Sep, Bipolar 1 disorder F31.9 ; Borderline in tellectual functioning R41.83 and Extreme poverty Z59.5 [place] [address] [address] Aug, Diabetes E11.9 ; Hyperlipidemia, unspeci fied E78.5 and Lumbar radiculopathy M54.16 [place] [address] [address] Aug, Bipolar 1 disorder F31.9 ; Borderline in tellectual functioning R41.83 and Extreme poverty Z59.5 [place] [address] [address] Aug, [facility] [id number] [place] [address] Aug, [facility] [address] [place] [id number] [place] [address] Aug, [facility] [address] [place] [id number] [place] [address] July, [facility] [address] [place] [id number] [place] [address] July, Acute bilateral low back pain with right -sided sciatica M54.41 [place] [address] [place] [address] [id number] [place] [address] July, Bipolar 1 disorder F31.9 ; Borderline in tellectual functioning R41.83 and Extreme poverty Z59.5 [place] [address] [place] [id number] [place] [address] July, Back pain M54.9 and Diabetes E11.9 [place] [address] [place] [id number] [place] [address] Jun, Bipolar 1 disorder F31.9 ; Borderline in tellectual functioning R41.83 and Extreme poverty Z59.5 [place] [address] [place] [id number] [place] [address] Jun, Bipolar 1 disorder F31.9 ; Borderline in tellectual functioning R41.83 and Extreme poverty Z59.5 [place] [address] [place] [id number] [place] [address] May, Visit for pelvic exam Z01.419 ; Acute va ginitis N76.0 and Diabetes E11.9 [facility] [address] [place] [id number] [place] [address] May, Bipolar 1 disorder F31.9 ; Borderline in tellectual functioning R41.83 and Extreme poverty Z59.5 [place] [address] [place] [id number] [place] [address] May, [facility] [address] [address] 07 May, 2016 [place] [address] [address] May, Bipolar 1 disorder F31.9 ; Borderline in tellectual functioning R41.83 and Extreme poverty Z59.5 [place] [address] [address] May, Hyperlipidemia, unspecified E78.5 [place] [address] [address] 13 Apr, 2016 Breast cancer screening Z12.39 [place] [address] [address] Mar, [place] [address] [address] Mar, Bipolar disorder, current episode mixed, unspecified F31.[address] [address] Mar, Bipolar 1 disorder F31.9 ; Borderline in tellectual functioning R41.83 and Extreme poverty Z59.5 [place] [address] [address] Feb, Acute nasopharyngitis J00 [address] [address] Feb, Dental examination Z01.[address] [address] Feb, Dental cavities K02.9 and Chronic period ontitis, unspecified K05.[address] [address] Feb, Low back pain M54.5 and Extreme poverty Z59.5 [place] [address] [address] Feb, [address] [address] Feb, Routine gynecological examination V72.31 ; Breast cancer screening Z12.39 and Herpes simplex type [address] [address] Feb, Diabetes E11.9 [place] [address] [address] Feb, Encounter for dental examination and leti aning without abnormal findings Z01.20 [place] [address] [address] Jan, Hyperlipidemia, unspecified E78.[address] [address] Jan, Bipolar 1 disorder F31.9 ; Borderline in tellectual functioning R41.83 and Extreme poverty Z59.[address] [address] Jan, Diabetes E11.9 [place] [address] [address] 17 Jan, 2016 Diabetes E11.[address] [address] 14 Dec, 2015 Bipolar 1 disorder F31.9 ; Borderline in tellectual functioning R41.83 and Extreme poverty Z59.[address] [address] 13 Dec, 2015 Bipolar disorder, current episode mixed, unspecified F31.60 and Borderline intellectual functioning R41.[address] [address] 16 Nov, 2015 Bipolar 1 disorder F31.9 ; Borderline in tellectual functioning R41.83 ; Extreme poverty Z59.5 and Non compliance with medical treatment Z91.19 [place] [address] [address] Oct, [address] [address] Oct, Dental caries K02.9 [place] [address] [address] Oct, Low back pain M54.5 and Other chronic pa in G89.29 [place] [address] [address] Oct, Bipolar 1 disorder F31.9 ; Borderline in tellectual functioning R41.83 ; Extreme poverty Z59.5 and Non compliance with medical treatment Z91.19 [place] [address] [address] Oct, [place] [address] [address] Oct, [place] [address] [address] Oct, Dental examination Z01.20 [place] [address] [address] Oct, Bipolar 1 disorder F31.9 ; Borderline in tellectual functioning R41.83 ; Extreme poverty Z59.5 and Non compliance with medical treatment Z91.19 [place] [address] [address] Oct, [place] [address] [address] Sep, Type 2 diabetes mellitus with complicati on E11.8 [place] [address] [address] Sep, Bipolar disorder, current episode mixed, unspecified F31.60 [place] [address] [address] Sep, Bipolar disorder, current episode mixed, unspecified F31.60 [place] [address] [address] Sep, Bipolar disorder, in partial remission, most recent episode manic F31.73 ; 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 ; Extreme poverty Z59.5 and Non compliance with medical treatment Z91.19 [place] [address] [address] 15 Aug, 2015 Bipolar disorder, in partial remission, most recent episode manic F31.73 ; 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 ; Extreme poverty Z59.5 and Non compliance with medical treatment Z91.19 [place] [address] [address] Aug, Bipolar disorder, in partial remission, most recent episode manic F31.73 ; 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 ; Extreme poverty Z59.5 and Non compliance with medical treatment Z91.19 [place] [address] [address] Aug, [place] [address] [address] July, Bipolar disorder, in partial remission, most recent episode manic F31.73 ; 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 ; Extreme poverty Z59.5 and Non compliance with medical treatment Z91.19 [place] [address] [address] July, Bipolar disorder, current episode mixed, unspecified F31.60 [place] [address] [address] July, Bipolar disorder, in partial remission, most recent episode manic F31.73 ; 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 ; Extreme poverty Z59.5 and Non compliance with medical treatment Z91.19 [place] [address] [address] July, senior living current use of opiate analgesi c Z79.891 and Chronic pain G89.29 [place] [address] [address] Jun, intermediate frame tender current use of opiate analgesi c Z79.891 and Bipolar 1 disorder F31.9 [place] [address] [address] Jun, [place] [address] [address] Jun, [place] [address] [address] Jun, [place] [address] [address] Jun, Bipolar disorder, in partial remission, most recent episode manic F31.73 ; 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 and Non compliance with medical treatment Z91.19 [place] [address] [address] May, Bipolar disorder, in partial remission, most recent episode manic F31.73 ; 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 and Non compliance with medical treatment Z91.19 [place] [address] [address] May, Bipolar disorder, in partial remission, most recent episode manic F31.73 [place] [address] [address] May, Diabetes E11.9 and Chronic pain G89.29 [place] [address] [address] May, [place] [address] [address] May, Bipolar disorder, in partial remission, most recent episode manic F31.73 ; Non compliance with medical treatment Z91.19 and 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 [place] [address] [address] May, Type 2 diabetes mellitus with complicati on E11.8 and Back pain M54.9 [place] [address] [address] May, Bipolar disorder, in partial remission, most recent episode manic F31.73 and 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 [place] [address] [address] Apr, [place] [address] [address] Apr, [place] [address] [address] Apr, [place] [address] [address] 09 Apr, 2015 Diabetes E11.9 ; Irritable bowel syndrom e with diarrhea K58.0 and Lumbar radiculopathy M54.16 [place] [address] [address] Apr, Breast screening Z12.39 [place] [address] [address] Apr, Bipolar disorder, in partial remission, most recent episode manic F31.73 ; Non compliance with medical treatment Z91.19 and 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 [place] [address] [address] Mar, Edema, unspecified type R60.9 and Type 2 diabetes mellitus with complication E11.[address] [address] Mar, Bipolar disorder, in partial remission, most recent episode manic F31.73 ; Non compliance with medical treatment Z91.19 ; 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 and Extreme poverty Z59.5 [place] [address] [address] Feb, Bipolar disorder, in partial remission, most recent episode manic F31.73 ; 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 and Extreme poverty Z59.5 [place] [address] [address] Feb, [place] [address] [address] Jan, Type 2 diabetes mellitus with complicati on E11.8 and Petechiae R23.3 [place] [address] [address] Jan, Type 2 diabetes mellitus with complicati on E11.8 ; Edema, unspecified R60.9 ; Petechiae R23.3 and Diabetes E11.9 [place] [address] [address] Jan, Bipolar disorder, in partial remission, most recent episode manic F31.73 ; 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 and Extreme poverty Z59.5 [place] [address] [address] Jan, Bipolar disorder, in partial remission, most recent episode manic F31.73 ; 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 and Extreme poverty Z59.5 [place] [address] [address] Dec, Bipolar disorder, in partial remission, most recent episode manic F31.73 [place] [address] [address] Dec, Edema, due to unspecified malnutrition t ype, unspecified edema R60.9 and Essential hypertension I10 [place] [address] [address] Dec, Bipolar disorder, in partial remission, most recent episode manic F31.73 [facility] [address] [address] Nov, Bipolar I disorder, most recent episode (or current) mixed, unspecified 296.60 [facility] [address] [address] Nov, Stress incontinence, female 625.6 ; Back pain 724.5 and Leg pain 729.5 [facility] [address] [address] Nov, Generalized anxiety disorder 300.02 and Bipolar II disorder 296.89 [facility] [address] [address] Nov, Bipolar I disorder, most recent episode (or current) mixed, unspecified 296.60 [facility] [address] [address] Oct, [facility] [address] [address] Oct, [facility] [address] [address] Oct, [facility] [address] [address] Oct, Bipolar I disorder, most recent episode (or current) mixed, unspecified 296.60 [facility] [address] [address] Sep, Diabetes 250.00 [facility] [address] [address] Sep, Bipolar I disorder, most recent episode (or current) mixed, unspecified 296.60 [facility] [address] [address] Sep, [facility] [address] [address] Sep, [facility] [address] [address] Sep, Bipolar I disorder, most recent episode (or current) mixed, unspecified 296.60 [facility] [address] [address] Sep, Bipolar I disorder, most recent episode (or current) mixed, unspecified 296.60 [facility] [address] [address] Sep, [facility] [address] [address] Sep, Anxiety 300.00 ; Diabetes 250.00 and Hyp erlipidemia 272.4 [place] [address] [address] Aug, [place] [address] [address] Aug, [place] [address] [address] Aug, [facility] [address] [address] Aug, Bipolar I disorder, most recent episode (or current) mixed, unspecified 296.60 [place] [address] [address] Aug, Generalized anxiety disorder 300.02 and Bipolar II disorder 296.89 [place] [address] [address] July, Bipolar I disorder, most recent episode (or current) mixed, unspecified 296.60 [facility] [address] [address] July, Cough 786.2 [facility] [address] [address] July, Bipolar I disorder, most recent episode (or current) mixed, unspecified 296.60 [facility] [address] [address] Jun, Diabetes 250.00 [facility] [address] [place] [address] [place] [address] 14 Jun, 2014 [facility] [place] [facility] [address] [facility] [id number] [place] [address] 13 Jun, 2014 [facility] [place] [facility] [address] [id number] [place] [address] 24 May, 2014 [facility] [place] [facility] [address] [id number] [place] [address] 24 May, 2014 [facility] [place] [facility] [address] [id number] [place] [address] 10 May, 2014 [facility] [place] [facility] [address] [id number] [place] [address] 10 May, 2014 [facility] [place] [facility] [address] [id number] [place] [address] 10 May, 2014 [facility] [place] [facility] [address] [id number] [place] [address] 10 May, 2014 [facility] [place] [facility] [address] [id number] [place] [address] Apr, 2014 [facility] [place] [facility] [address] [id number] [place] [address] Apr, 2014 [facility] [place] [facility] [address] [id number] [place] [address] Apr, 2014 [facility] [place] [facility] [address] [id number] [place] [address] Apr, 2014 [facility] [place] [facility] [address] [id number] [place] [address] 10 Apr, 2014 [facility] [place] [facility] [address] [id number] [place] [address] 10 Apr, 2014 [facility] [place] [facility] [address] [id number] [place] [address] 05 Apr, 2014 [facility] [place] [facility] [address] [id number] [place] [address] 05 Apr, 2014 [facility] [place] [facility] [address] [id number] [place] [address] Mar, [facility] [place] [facility] [address] [facility] [id number] [place] [address] Mar, [facility] [place] [facility] [address] [facility] [id number] [place] [address] Mar, [facility] [place] [facility] [address] [id number] [place] [address] Mar, [facility] [place] [facility] [address] [id number] [place] [address] Mar, [facility] [place] [facility] [address] [facility] [id number] [place] [address] Mar, [facility] [place] [facility] [address] [id number] [place] [address] Mar, [facility] [place] [facility] [address] [id number] [place] [address] Mar, [facility] [place] [facility] [address] [id number] [place] [address] Feb, [facility] [place] [facility] [address] [facility] [id number] [place] [address] Feb, [facility] [place] [facility] [address] [id number] [place] [address] Feb, [facility] [place] [facility] [address] [id number] [place] [address] Feb, [facility] [place] [facility] [address] [id number] [place] [address] Feb, [facility] [place] [facility] [address] [facility] [id number] [place] [address] Feb, [facility] [place] [facility] [address] [id number] [place] [address] Feb, [facility] [place] [facility] [address] [id number] [place] [address] Feb, [facility] [place] [facility] [address] [id number] [place] [address] Feb, [facility] [place] [facility] [address] [id number] [place] [address] Feb, [facility] [place] [facility] [address] [id number] [place] [address] Jan, [facility] [place] [facility] [address] [id number] [place] [address] Jan, [facility] [place] [facility] [address] [id number] [place] [address] Jan, [facility] [place] [facility] [address] [id number] [place] [address] Jan, [facility] [place] [facility] [address] [id number] [place] [address] Jan, [facility] [place] [facility] [address] [id number] [place] [address] Jan, [facility] [place] [facility] [address] [id number] [place] [address] Jan, [facility] [place] [facility] [address] [id number] [place] [address] Jan, [facility] [place] [facility] [address] [id number] [place] [address] Jan, [facility] [place] [facility] [address] [id number] [place] [address] Jan, [facility] [place] [facility] [address] [id number] [place] [address] Jan, [facility] [place] [facility] [address] [id number] [place] [address] Jan, [facility] [place] [facility] [address] [id number] [place] [address] Jan, [facility] [place] [facility] [address] [place] [id number] [place] [address] Jan, [facility] [place] [facility] [address] [id number] [place] [address] Jan, [facility] [place] [facility] [address] [id number] [place] [address] Dec, [facility] [place] [facility] [address] [id number] [place] [address] 20 Dec, 2013 [facility] [place] [facility] [address] [id number] [place] [address] 16 Dec, 2013 [facility] [place] [facility] [address] [id number] [place] [address] 16 Dec, 2013 [facility] [place] [facility] [address] [id number] [place] [address] 09 Dec, 2013 [facility] [place] [facility] [address] [id number] [place] [address] 09 Dec, 2013 [facility] [place] [facility] [address] [id number] [place] [address] 07 Dec, 2013 [facility] [place] [facility] [address] [id number] [place] [address] 07 Dec, 2013 [facility] [place] [facility] [address] [id number] [place] [address] 25 Sep, 2013 [facility] [place] [facility] [address] [id number] [place] [address] 25 Sep, 2013 [facility] [place] [facility] [address] [id number] [place] [address] 10 Sep, 2013 [facility] [place] [facility] [address] [id number] [place] [address] 10 Sep, 2013 [facility] [place] [facility] [address] [id number] [place] [address] 08 Sep, 2013 [facility] [place] [facility] [address] [id number] [place] [address] 08 Sep, 2013 [facility] [place] [facility] [address] [id number] [place] [address] 08 Sep, 2013 [facility] [place] [facility] [address] [id number] [place] [address] 08 Sep, 2013 [facility] [place] [facility] [address] [id number] [place] [address] 08 Sep, 2013 [facility] [place] [facility] [address] [id number] [place] [address] 08 Sep, 2013 [facility] [place] [facility] [address] [id number] [place] [address] 04 Nov, 2013 [facility] [place] [facility] [address] [facility] [id number] [place] [address] 04 Nov, 2013 [facility] [place] [facility] [address] [facility] [id number] [place] [address] 03 Nov, 2013 [facility] [place] [facility] [address] [id number] [place] [address] Nov, 2013 [facility] [place] [facility] [address] [facility] [id number] [place] [address] Nov, 2013 [facility] [place] [facility] [address] [id number] [place] [address] Oct, [facility] [place] [facility] [address] [facility] [id number] [place] [address] Oct, [facility] [place] [facility] [address] [id number] [place] [address] Oct, [facility] [place] [facility] [address] [facility] [id number] [place] [address] Oct, [facility] [place] [facility] [address] [id number] [place] [address] Oct, [facility] [place] [facility] [address] [facility] [id number] [place] [address] Oct, [facility] [place] [facility] [address] [id number] [place] [address] Oct, [facility] [place] [facility] [address] [facility] [id number] [place] [address] Oct, [facility] [place] [facility] [address] [id number] [place] [address] Oct, [facility] [place] [facility] [address] [facility] [id number] [place] [address] Oct, [facility] [place] [facility] [address] [id number] [place] [address] Oct, [facility] [place] [facility] [address] [id number] [place] [address] Oct, [facility] [place] [facility] [address] [id number] [place] [address] Oct, [facility] [place] [facility] [address] [facility] [id number] [place] [address] Oct, [facility] [place] [facility] [address] [id number] [place] [address] Sep, [facility] [place] [facility] [address] [facility] [id number] [place] [address] Sep, [facility] [place] [facility] [address] [facility] [id number] [place] [address] Sep, [facility] [place] [facility] [address] [id number] [place] [address] Sep, [facility] [place] [facility] [address] [id number] [place] [address] Sep, [facility] [place] [facility] [address] [id number] [place] [address] Sep, [facility] [place] [facility] [address] [id number] [place] [address] Sep, [facility] [place] [facility] [address] [id number] [place] [address] Sep, [facility] [place] [facility] [address] [id number] [place] [address] Aug, [facility] [place] [facility] [address] [id number] [place] [address] Aug, [facility] [place] [facility] [address] [id number] [place] [address] Aug, [facility] [place] [facility] [address] [id number] [place] [address] Aug, [facility] [place] [facility] [address] [id number] [place] [address] Aug, [facility] [place] [facility] [address] [id number] [place] [address] Aug, [facility] [place] [facility] [address] [id number] [place] [address] Aug, [facility] [place] [facility] [address] [id number] [place] [address] Aug, [facility] [place] [facility] [address] [id number] [place] [address] July, [facility] [place] [facility] [address] [id number] [place] [address] July, [facility] [place] [facility] [address] [id number] [place] [address] July, [facility] [place] [facility] [address] [id number] [place] [address] July, [facility] [place] [facility] [address] [id number] [place] [address] July, [facility] [place] [facility] [address] [id number] [place] [address] July, [facility] [place] [facility] [address] [id number] [place] [address] July, [facility] [place] [facility] [address] [id number] [place] [address] July, [facility] [place] [facility] [address] [id number] [place] [address] Jun, [facility] [address] [id number] [place] [address] Jun, [facility] [address] [id number] [place] [address] Jun, [facility] [address] [id number] [place] [address] Jun, [facility] [address] [id number] [place] [address] Jun, [facility] [address] [id number] [place] [address] Jun, [facility] [address] [id number] [place] [address] Jun, [facility] [address] [facility] [id number] [place] [address] Jun, [facility] [address] [facility] [id number] [place] [address] Jun, [facility] [address] [facility] [id number] [place] [address] Jun, [facility] [address] [facility] [id number] [place] [address] Jun, [facility] [address] [facility] [id number] [place] [address] Jun, [facility] [address] [id number] [place] [address] May, [facility] [address] [id number] [place] [address] May, [facility] [address] [id number] [place] [address] May, [facility] [address] [facility] [id number] [place] [address] May, [facility] [address] [id number] [place] [address] May, [facility] [address] [id number] [place] [address] May, [facility] [address] [id number] [place] [address] May, [facility] [address] [facility] [id number] [place] [address] May, [facility] [address] [facility] [id number] [place] [address] May, [facility] [address] [facility] [id number] [place] [address] May, [facility] [address] [id number] [place] [address] May, [facility] [address] [id number] [place] [address] May, [facility] [address] [facility] [id number] [place] [address] May, [facility] [address] [id number] [place] [address] May, [facility] [address] [id number] [place] [address] Apr, [facility] [address] [id number] [place] [address] Apr, [facility] [address] [id number] [place] [address] Apr, [facility] [address] [id number] [place] [address] Apr, [facility] [address] [id number] [place] [address] Apr, [facility] [address] [id number] [place] [address] Apr, [facility] [address] [id number] [place] [address] Mar, [facility] [address] [id number] [place] [address] Mar, [facility] [address] [id number] [place] [address] Mar, [facility] [address] [id number] [place] [address] Mar, [facility] [address] [facility] [id number] [place] [address] Mar, [facility] [address] [id number] [place] [address] Mar, [facility] [address] [id number] [place] [address] Mar, [facility] [address] [id number] [place] [address] Mar, [facility] [address] [id number] [place] [address] Mar, [facility] [address] [id number] [place] [address] Mar, [facility] [address] [id number] [place] [address] Mar, [facility] [address] [id number] [place] [address] Mar, [facility] [address] [id number] [place] [address] Mar, [facility] [address] [id number] [place] [address] Mar, [facility] [address] [id number] [place] [address] Feb, [facility] [address] [id number] [place] [address] Feb, [facility] [address] [id number] [place] [address] Feb, [facility] [address] [id number] [place] [address] Feb, [facility] [address] [id number] [place] [address] Feb, [facility] [address] [id number] [place] [address] Feb, [facility] [address] [id number] [place] [address] Feb, [facility] [address] [id number] [place] [address] Feb, [facility] [address] [id number] [place] [address] Feb, [facility] [address] [id number] [place] [address] Feb, [facility] [address] [id number] [place] [address] 09 Feb, 2012 [facility] [address] [facility] [id number] [place] [address] 09 Feb, 2012 [facility] [address] [id number] [place] [address] 05 Feb, 2012 [facility] [address] [id number] [place] [address] 05 Feb, 2012 [facility] [address] [id number] [place] [address] 05 Feb, 2012 [facility] [address] [facility] [id number] [place] [address] 05 Feb, 2012 [facility] [address] [id number] [place] [address] 24 Dec, 2012 [facility] [address] [id number] [place] [address] 24 Dec, 2012 [facility] [address] [id number] [place] [address] 16 Dec, 2012 [facility] [address] [id number] [place] [address] 16 Dec, 2012 [facility] [address] [id number] [place] [address] 16 Dec, 2012 [facility] [address] [id number] [place] [address] 16 Dec, 2012 [facility] [address] [id number] [place] [address] 14 Dec, 2012 [facility] [address] [id number] [place] [address] 14 Dec, 2012 [facility] [address] [id number] [place] [address] 10 Dec, 2012 [facility] [address] [id number] [place] [address] 10 Dec, 2012 [facility] [address] [id number] [place] [address] 10 Dec, 2012 [facility] [address] [facility] [id number] [place] [address] 10 Dec, 2012 [facility] [address] [facility] [id number] [place] [address] Dec, [facility] [address] [facility] [id number] [place] [address] 25 Nov, 2012 [facility] [address] [id number] [place] [address] 20 Nov, 2012 [facility] [address] [facility] [id number] [place] [address] 18 Nov, 2012 [facility] [address] [facility] [id number] [place] [address] 16 Nov, 2012 [facility] [address] [id number] [place] [address] 12 Nov, 2012 [facility] [address] [id number] [place] [address] 11 Nov, 2012 [facility] [address] [id number] [place] [address] 05 Nov, 2012 [facility] [address] [id number] [place] [address] 15 Oct, 2012 [facility] [address] [id number] [place] [address] Oct, [facility] [address] [id number] [place] [address] Sep, [facility] [address] [id number] [place] [address] Sep, [facility] [address] [facility] [id number] [place] [address] Sep, [facility] [address] [id number] [place] [address] Sep, [facility] [address] [id number] [place] [address] Sep, [facility] [address] [id number] [place] [address] Sep, [facility] [address] [facility] [id number] [place] [address] 08 Sep, 2012 [facility] [address] [id number] [place] [address] Aug, [facility] [address] [id number] [place] [address] 18 Aug, 2012 [facility] [address] [id number] [place] [address] 16 Aug, 2012 [facility] [address] [facility] [id number] [place] [address] Aug, [facility] [address] [id number] [place] [address] Aug, [facility] [address] [id number] [place] [address] Aug, [facility] [address] [id number] [place] [address] Aug, [facility] [address] [id number] [place] [address] Aug, [facility] [address] [id number] [place] [address] July, [facility] [address] [id number] [place] [address] July, [facility] [address] [id number] [place] [address] July, [facility] [address] [facility] [id number] [place] [id number] July, [facility] [address] [id number] [place] [address] July, [facility] [address] [id number] [place] [address] Jun, [facility] [address] [id number] [place] [address] May, [facility] [address] [id number] [place] [address] 14 May, 2012 [facility] [address] [id number] [place] [address] 04 May, 2012 [facility] [address] [id number] [place] [address] Apr, [facility] [address] [id number] [place] [address] Apr, [facility] [address] [id number] [place] [address] Apr, [facility] [address] [id number] [place] [address] Mar, [facility] [address] [id number] [place] [address] Mar, [facility] [address] [id number] [place] [address] Mar, [facility] [address] [id number] [place] [address] Mar, [facility] [address] [id number] [place] [address] Mar, [facility] [address] [id number] [place] [address] Mar, [facility] [address] [id number] [place] [address] Mar, [facility] [address] [id number] [place] [address] Feb, [facility] [address] [id number] [place] [address] 31 Feb, 2012 [facility] [address] [id number] [place] [address] 18 Feb, 2012 [facility] [address] [id number] [place] [address] 18 Feb, 2012 [facility] [address] [id number] [place] [address] 17 Feb, 2012 [facility] [address] [id number] [place] [address] Feb, [facility] [address] [id number] [place] [address] Feb, [facility] [address] [id number] [place] [address] Feb, [facility] [address] [id number] [place] [address] Jan, [facility] [address] [id number] [place] [address] Jan, [facility] [address] [id number] [place] [address] Jan, [facility] [address] [id number] [place] [address] Jan, [facility] [address] [id number] [place] [address] Jan, [facility] [address] [id number] [place] [address] Jan, [facility] [address] [id number] [place] [address] Jan, [facility] [address] [id number] [place] [address] Jan, [facility] [address] [id number] [place] [address] Jan, [facility] [address] [id number] [place] [address] Jan, [facility] [address] [id number] [place] [address] Jan, [facility] [id number] [place] [address] Jan, [facility] [address] [id number] [place] [address] Jan, [facility] [address] [id number] [place] [address] Jan, [facility] [address] [id number] [place] [address] Jan, [facility] [address] [id number] [place] [address] Jan, [facility] [address] [id number] [place] [address] Dec, [facility] [address] [id number] [place] [address] Dec, [facility] [address] [id number] [place] [address] Dec, [facility] [address] [id number] [place] [address] Dec, [facility] [address] [id number] [place] [address] Dec, [facility] [address] [id number] [place] [address] Dec, [facility] [address] [id number] [place] [address] Dec, [facility] [address] [id number] [place] [address] Dec, [facility] [address] [id number] [place] [address] 08 Dec, 2011 [facility] [address] [id number] [place] [address] 05 Dec, 2011 [facility] [address] [id number] [place] [address] 18 Nov, 2011 [facility] [address] [id number] [place] [address] 13 Nov, 2011 [facility] [address] [id number] [place] [address] 24 Oct, 2011 [facility] [address] [id number] [place] [address] Oct, [facility] [address] [id number] [place] [address] 17 Oct, 2011 [facility] [address] [id number] [place] [address] Oct, [facility] [address] [id number] [place] [address] Oct, [facility] [address] [id number] [place] [address] Oct, [facility] [address] [id number] [place] [address] Oct, [facility] [address] [facility] [id number] [place] [address] Sep, [facility] [address] [id number] [place] [address] Aug, [facility] [address] [id number] [place] [address] Aug, [facility] [address] [id number] [place] [address] Aug, [facility] [address] [id number] [place] [address] Aug, [facility] [address] [id number] [place] [address] Aug, [facility] [address] [id number] [place] [address] July, [facility] [address] [id number] [place] [address] July, [facility] [address] [id number] [place] [address] July, [facility] [address] [id number] [place] [address] Jun, [facility] [address] [id number] [place] [address] Jun, [facility] [address] [id number] [place] [address] Jun, [facility] [address] [id number] [place] [address] 02 Jun, 2011 [facility] [address] [id number] [place] [address] 30 May, 2011 [facility] [address] [id number] [place] [address] 30 May, 2011 [facility] [address] [id number] [place] [address] 29 May, 2011 [facility] [address] [id number] [place] [address] 28 May, 2011 [facility] [address] [id number] [place] [address] May, [facility] [address] [id number] [place] [address] May, [facility] [address] [id number] [place] [address] May, [facility] [address] [id number] [place] [address] May, [facility] [address] [id number] [place] [address] 08 May, 2011 [facility] [address] [id number] [place] [address] 05 May, 2011 [facility] [address] [id number] [place] [address] May, [facility] [address] [id number] [place] [address] May, [facility] [address] [id number] [place] [address] Mar, [facility] [address] [id number] [place] [address] Mar, [facility] [address] [id number] [place] [address] Feb, [facility] [address] [id number] [place] [address] Feb, [facility] [address] [id number] [place] [address] 20 Feb, 2011 [facility] [address] [id number] [place] [address] 15 Feb, 2011 [facility] [address] [id number] [place] [address] 13 Feb, 2011 [facility] [address] [id number] [place] [address] Feb, [facility] [address] [id number] [place] [address] Feb, [facility] [address] [id number] [place] [address] Jan, [facility] [address] [id number] [place] [address] Jan, [facility] [address] [id number] [place] [address] Jan, [facility] [address] [id number] [place] [address] Jan, [facility] [address] [id number] [place] [address] Jan, [facility] [address] [id number] [place] [address] Jan, [facility] [address] [id number] [place] [address] Dec, [facility] [address] [id number] [place] [address] Dec, [facility] [address] [id number] [place] [address] Dec, [facility] [address] [id number] [place] [address] July, [facility] [address] [id number] [place] [address] July, [facility] [address] [id number] [place] [address] 08 Feb, 2010 [facility] [address] [id number] [place] [address] 18 Jan, 2010 [facility] [address] [id number] [place] [address] Dec, [facility] [address] [id number] [place] [address] 12 Dec, 2009 [facility] [address] [id number] [place] [address] 15 Sep, 2009 [facility] [address] [id number] [place] [address] Aug, [facility] [address] [id number] [place] [address] Jun, [facility] [address] [id number] [place] [address] Jun, [facility] [address] [id number] [place] [address] Jan, [facility] [address] [id number] [place] [address] Jan, [facility] [address] [id number] [place] [address] Jan, [facility] [address] [id number] [place] [address] Jan, [facility] [address] [id number] [place] [address] 29 Dec, 2008 [facility] [address] [id number] [place] [address] Dec, [facility] [address] [id number] [place] [address] 15 Dec, 2008 [facility] [address] [id number] [place] [address] Nov, [facility] [address] [id number] [place] [address] July, [facility] [address] [id number] [place] [address] May, [facility] [address] [id number] [place] [address] Apr, [facility] [address] [id number] [place] [address] Feb, [facility] [address] [id number] [place] [address] Dec, IMMUNIZATIONS No Known Immunizations SOCIAL HISTORY Never Assessed REASON FOR VISIT PLAN OF CARE VITAL SIGNS Height 62 in 2013-07-17 Weight 211 lbs 2013-07-17 Heart Rate 94 bpm 2013-07-17 Respiratory Rate 18 2013-07-17 Blood pressure systolic 140 mmHg 2013-07-17 Blood pressure diastolic 82 mmHg 2013-07-17 MEDICATIONS Unknown Medications RESULTS No Results PROCEDURES Procedure Date Ordered Result Body Site X-RAY EXAM OF LOWER LEG July 17, 2013 X-RAY EXAM OF HIP July 17, 2013 X-RAY EXAM OF LOWER SPINE July 17, 2013 INSTRUCTIONS MEDICATIONS ADMINISTERED No Known Medications [...]
--- OUTSIDE RECORDS SUMMARY | 2019-06-22 19:45 | XMS REPORT ---
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 Active 99903658 Problem Irritable bowel syndrome with diarrhea K58.0 Active 974880799 Problem Diabetes E11.9 Active 847253043 Problem Bipolar 1 disorder F31.9 Active 3 47866630 Problem Lumbar radiculopathy M54.16 Active 498498118 Problem Hyperlipidemia, unspecified E78.5 Ac tive 51126372 Problem Acute bilateral low back pain with right-sided sciatica M54.41 Active 849970967 Problem New daily persistent headache G44.52 Active 672182721 Problem Insulin long-term use Z79.4 Active 519396262 Problem Type 2 diabetes mellitus with complication E11.8 Active 138977145 Problem Post laminectomy syndrome M96.1 Acti ve 10747507 Problem Rhinosinusitis J32.9 Active 01110 000 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 Active 216263577 Problem Eye exam normal Z01.00 Active 2438 20996 Problem Type 2 diabetes mellitus with hyperglycemia E11.65 Active 64326450 Problem Lumbago with sciatica, left side M54.42 Active 810166737 Problem Other chronic pain G89.29 Active 8 0614368 Problem Hypertriglyceridemia E78.1 Active [id number] ALLERGIES No Information ENCOUNTERS Encounter Location Date Diagnosis [facility] [address] [id number] [place] [address] May, [facility] [address] [address] Apr, [facility] [address] [address] Apr, [facility] [address] [address] Mar, Bipolar 1 disorder F31.9 ; Borderline in tellectual functioning R41.83 and Extreme poverty Z59.5 [facility] [address] [address] Mar, Exercise counseling Z71.82 [place] [address] [address] Mar, [place] [address] [address] Mar, Bipolar disorder, in partial remission, most recent episode manic F31.73 and 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 [facility] [address] [address] Mar, [facility] [address] [address] Mar, Exercise counseling Z71.82 [place] [address] [address] Feb, Bipolar 1 disorder F31.9 ; Borderline in tellectual functioning R41.83 and Extreme poverty Z59.5 [place] [address] [place] [id number] [place] [address] Feb, [facility] [address] [address] Feb, Type 2 diabetes mellitus with complicati on E11.8 [facility] [address] [facility] [id number] [address] [place] [address] Feb, Acute low back pain without sciatica, unspecified back pain laterality M54.5 [place] [address] [address] Feb, Bipolar 1 disorder F31.9 ; Borderline in tellectual functioning R41.83 and Extreme poverty Z59.5 [facility] [address] [address] Jan, Bipolar 1 disorder F31.9 ; Borderline in tellectual functioning R41.83 and Extreme poverty Z59.5 [facility] [address] [place] [id number] [place] [address] Jan, [facility] [address] [address] Jan, Type 2 diabetes mellitus with complicati on E11.8 [place] [address] [address] Jan, Type 2 diabetes mellitus with complicati on E11.8 ; Dysuria R30.0 and Diarrhea, unspecified type R19.7 [place] [address] [address] Jan, Bipolar 1 disorder F31.9 ; Borderline in tellectual functioning R41.83 and Extreme poverty Z59.5 [place] [address] [address] Dec, [facility] [address] [address] Dec, [facility] [address] [address] Dec, [facility] [address] [address] Dec, [facility] [address] [address] Dec, Rhinosinusitis J32.9 [facility] [address] [address] Dec, [facility] [address] [address] Dec, Bipolar 1 disorder F31.9 ; Borderline in tellectual functioning R41.83 and Extreme poverty Z59.5 [place] [address] [address] Dec, Type 2 diabetes mellitus with complicati on E11.8 and Type 2 diabetes mellitus with hyperglycemia E11.65 [place] [address] [address] Dec, [place] [address] [address] Dec, Type 2 diabetes mellitus with complicati on E11.8 ; Insulin long-term use Z79.4 ; Hyperglycemia R73.9 and Yeast infection B37.9 [place] [address] [address] Dec, Encounter for immunization Z23 [place] [address] [address] Nov, [place] [address] [address] Nov, Bipolar 1 disorder F31.9 ; Borderline in tellectual functioning R41.83 and Extreme poverty Z59.5 [place] [address] [address] Nov, [place] [address] [address] Nov, [place] [address] [address] Nov, Borderline intellectual functioning R41. 83 and Bipolar disorder, in partial remission, most recent episode manic F31.73 [facility] [address] [facility] [id number] [address] [place] [address] Nov, Epigastric abdominal pain R1 0.13 [place] [address] [address] Nov, Bipolar 1 disorder F31.9 ; Borderline in tellectual functioning R41.83 and Extreme poverty Z59.5 [facility] [address] [place] [id number] [place] [address] Oct, Dysuria R30.0 and Acute cyst itis without hematuria N30.00 [facility] [address] [place] [id number] [place] [address] Oct, [facility] [address] [address] Oct, [facility] [address] [address] Oct, Bipolar 1 disorder F31.9 ; Borderline in tellectual functioning R41.83 and Extreme poverty Z59.5 [place] [address] [address] Oct, [facility] [address] [address] Oct, [facility] [address] [address] Oct, Bipolar disorder, in partial remission, most recent episode manic F31.73 and 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 [place] [address] [address] Oct, Bipolar 1 disorder F31.9 ; Borderline in tellectual functioning R41.83 and Extreme poverty Z59.5 [place] [address] [place] [id number] [place] [address] Oct, Diarrhea, unspecified type R19.7 [facility] [address] [facility] [place] [id number] Sep, Dental examination Z01.20 and Dental car ies K02.9 [facility] [address] [address] Sep, Mouth pain K13.79 [facility] [address] [address] Sep, [facility] [address] [address] Sep, Bipolar 1 disorder F31.9 ; Borderline in tellectual functioning R41.83 and Extreme poverty Z59.5 [place] [address] [address] Sep, [place] [address] [address] Sep, [place] [address] [address] Sep, Diabetes E11.9 ; Hyperglycemia R73.9 ; L eliseo term current use of insulin Z79.4 and Diarrhea, unspecified type R19.7 [place] [address] [address] Sep, [place] [address] [address] Sep, Bipolar 1 disorder F31.9 ; Borderline in tellectual functioning R41.83 and Extreme poverty Z59.5 [place] [address] [address] Sep, [place] [address] [address] Sep, [place] [address] [address] Aug, Bipolar 1 disorder F31.9 ; Borderline in tellectual functioning R41.83 and Extreme poverty Z59.5 [place] [address] [address] Aug, Exercise counseling Z71.82 [place] [address] [address] Aug, Bipolar 1 disorder F31.9 ; Borderline in tellectual functioning R41.83 and Extreme poverty Z59.5 [place] [address] [address] Aug, Borderline intellectual functioning R41. 83 and Bipolar disorder, in partial remission, most recent episode manic F31.73 [facility] [address] [address] Aug, Low back pain M54.5 [facility] [address] [address] Aug, Borderline intellectual functioning R41. 83 and Bipolar disorder, in partial remission, most recent episode manic F31.73 [facility] [address] [address] July, Acute superficial gastritis without hemo rrhage K29.00 ; Low back pain M54.5 and Other chronic pain G89.29 [place] [address] [address] July, [place] [address] [address] July, [place] [address] [address] Jun, [facility] [address] [facility] [id number] [address] [place] [address] Jun, Bilateral lower extremity ed epi R60.0 [place] [address] [address] Jun, Borderline intellectual functioning R41. 83 and Bipolar disorder, in partial remission, most recent episode manic F31.73 [place] [address] [address] Jun, [place] [address] [address] May, Bronchitis J40 [place] [address] [address] May, Screening for breast cancer Z12.31 and E ncounter for immunization Z23 [facility] [address] [address] May, Bipolar 1 disorder F31.9 ; Borderline in tellectual functioning R41.83 and Extreme poverty Z59.5 [place] [address] [address] Apr, [place] [address] [address] 07 Apr, 2018 Bipolar 1 disorder F31.9 ; Borderline in tellectual functioning R41.83 and Extreme poverty Z59.5 [place] [address] [address] 05 Apr, 2018 Irritable bowel syndrome with diarrhea K 58.0 and Dental abscess K04.7 [place] [address] [address] Mar, [place] [address] [address] Mar, [place] [address] [address] Mar, Bipolar 1 disorder F31.9 ; Borderline in tellectual functioning R41.83 and Extreme poverty Z59.5 [place] [address] [address] Mar, Hypertriglyceridemia E78.1 [place] [address] [address] Mar, Borderline intellectual functioning R41. 83 and Bipolar disorder, in partial remission, most recent episode manic F31.73 [place] [address] [address] Mar, Bipolar 1 disorder F31.9 ; Borderline in tellectual functioning R41.83 and Extreme poverty Z59.5 [place] [address] [address] Feb, Generalized abdominal pain R10.84 and Di arrhea, unspecified type R19.7 [place] [address] [address] Feb, [place] [address] [address] Feb, Myalgia M79.10 and Nausea R11.0 [place] [address] [address] Feb, Bipolar 1 disorder F31.9 ; Borderline in tellectual functioning R41.83 and Extreme poverty Z59.5 [place] [address] [address] Feb, [place] [address] [place] [address] Feb, Diabetes E11.9 ; Hyperglycemia R73.9 and Diarrhea, unspecified R19.[address] [address] Feb, Diarrhea, unspecified type R19.7 ; Abdom inal pain R10.9 and Encounter for immunization Z23 [place] [address] [address] Jan, Bipolar 1 disorder F31.9 ; Borderline in tellectual functioning R41.83 and Extreme poverty Z59.5 [place] [address] [address] Dec, Bipolar 1 disorder F31.9 ; Borderline in tellectual functioning R41.83 and Extreme poverty Z59.5 [place] [address] [address] Nov, [address] [address] Nov, Hypertriglyceridemia E78.1 [place] [address] [address] Nov, Bipolar 1 disorder F31.9 ; Borderline in tellectual functioning R41.83 and Extreme poverty Z59.5 [place] [address] [address] Nov, Type 2 diabetes mellitus with complicati on E11.[address] [place] [address] 18 Nov, 2017 Borderline intellectual functioning R41. 83 and Bipolar disorder, in partial remission, most recent episode manic F31.73 [place] [address] [address] 12 Nov, 2017 Type 2 diabetes mellitus with complicati on E11.8 [place] [address] [address] Nov, Bipolar 1 disorder F31.9 ; Borderline in tellectual functioning R41.83 and Extreme poverty Z59.5 [place] [address] [address] Nov, Type 2 diabetes mellitus with complicati on E11.8 ; Pain of left upper arm M79.622 ; Pain in right upper arm M79.621 ; Hyperglycemia R73.9 ; Lumbago with sciatica, left side M54.42 and Other chronic pain G89.29 [place] [address] [address] Oct, Bipolar 1 disorder F31.9 ; Borderline in tellectual functioning R41.83 and Extreme poverty Z59.5 [place] [address] [address] Oct, Type 2 diabetes mellitus with hyperglyce didi E11.65 ; correction current use of insulin Z79.4 and Other acute gastritis without hemorrhage K29.00 [place] [address] [address] Oct, Bipolar 1 disorder F31.9 ; Borderline in tellectual functioning R41.83 and Extreme poverty Z59.5 [place] [address] [address] Sep, Diarrhea, unspecified R19.7 and Vomiting , unspecified R11.10 [place] [address] [address] Aug, Type 2 diabetes mellitus with complicati on E11.8 [place] [address] [place] [id number] [place] [address] Aug, [facility] [address] [address] Aug, Bipolar 1 disorder F31.9 ; Borderline in tellectual functioning R41.83 and Extreme poverty Z59.5 [place] [address] [place] [id number] [place] [address] Aug, Borderline intellectual functioning R41. 83 and Bipolar disorder, in partial remission, most recent episode manic F31.73 [place] [address] [address] Aug, Bipolar 1 disorder F31.9 [place] [address] [address] Aug, [place] [address] [address] Aug, [place] [address] [address] Aug, Bipolar 1 disorder F31.9 ; Borderline in tellectual functioning R41.83 and Extreme poverty Z59.5 [place] [address] [place] [id number] [place] [address] July, Type 2 diabetes mellitus with complicati on E11.8 [place] [address] [place] [id number] [place] [address] July, Bipolar 1 disorder F31.9 ; Borderline in tellectual functioning R41.83 and Extreme poverty Z59.5 [place] [address] [place] [id number] [place] [address] Jun, Bipolar 1 disorder F31.9 ; Borderline in tellectual functioning R41.83 and Extreme poverty Z59.5 [place] [address] [place] [id number] [place] [address] Jun, Bipolar 1 disorder F31.9 ; Borderline in tellectual functioning R41.83 and Extreme poverty Z59.5 [place] [address] [address] Jun, Bipolar 1 disorder F31.9 ; Borderline in tellectual functioning R41.83 and Extreme poverty Z59.5 [place] [address] [address] May, Urinary tract infection without hematuri a, site unspecified N39.0 [place] [address] [address] May, Bipolar 1 disorder F31.9 ; Borderline in tellectual functioning R41.83 and Extreme poverty Z59.5 [place] [address] [address] Apr, Diabetes E11.9 and Breast cancer screeni ng Z12.31 [place] [address] [address] Apr, Bipolar 1 disorder F31.9 and 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 [place] [address] [address] Mar, Bipolar 1 disorder F31.9 ; Borderline in tellectual functioning R41.83 and Extreme poverty Z59.5 [place] [address] [address] Mar, New daily persistent headache G44.52 ; L eg pain 729.5 and History of carpal tunnel release Z98.890 [place] [address] [address] Mar, Hyperlipidemia, unspecified E78.5 [place] [address] [address] Mar, Bipolar 1 disorder F31.9 ; Borderline in tellectual functioning R41.83 and Extreme poverty Z59.5 [place] [address] [address] Feb, Bipolar 1 disorder F31.9 ; Borderline in tellectual functioning R41.83 and Extreme poverty Z59.5 [place] [address] [address] Feb, Diabetes E11.9 [place] [address] [address] Feb, Viral syndrome B34.9 [place] [address] [address] Jan, Other viral agents as the cause of disea ses classified elsewhere B97.89 and Acute upper respiratory infection, unspecified J06.9 [place] [address] [address] Jan, Bipolar 1 disorder F31.9 and Borderline intellectual functioning R41.[address] [address] Jan, Bipolar 1 disorder F31.9 ; Borderline in tellectual functioning R41.83 and Extreme poverty Z59.5 [place] [address] [address] Dec, Diabetes E11.9 [place] [address] [address] Dec, Diabetes E11.9 and Encounter for immuniz ation Z23 [address] [address] Dec, Bipolar 1 disorder F31.9 ; Borderline in tellectual functioning R41.83 and Extreme poverty Z59.5 [place] [address] [address] Dec, Back pain M54.9 [place] [address] [address] Nov, [address] [address] 06 Nov, 2016 Bipolar 1 disorder F31.9 ; Borderline in tellectual functioning R41.83 and Extreme poverty Z59.5 [place] [address] [address] Nov, Bipolar 1 disorder F31.9 ; Borderline in tellectual functioning R41.83 and Extreme poverty Z59.5 [place] [address] [address] Oct, Borderline intellectual functioning R41. 83 and Bipolar 1 disorder F31.9 [place] [address] [address] Oct, Bipolar 1 disorder F31.9 ; Borderline in tellectual functioning R41.83 and Extreme poverty Z59.5 [place] [address] [address] Oct, Back pain M54.9 [place] [address] [address] Oct, Borderline intellectual functioning R41. 83 and Type 2 diabetes mellitus with complication E11.8 [place] [address] [address] Sep, Bipolar 1 disorder F31.9 ; Borderline in tellectual functioning R41.83 and Extreme poverty Z59.5 [place] [address] [address] Sep, Borderline intellectual functioning R41. 83 and Bipolar 1 disorder F31.9 [place] [address] [address] Sep, Bipolar 1 disorder F31.9 ; Borderline in tellectual functioning R41.83 and Extreme poverty Z59.5 [place] [address] [address] Aug, Diabetes E11.9 ; Hyperlipidemia, unspeci fied E78.5 and Lumbar radiculopathy M54.16 [place] [address] [address] Aug, Bipolar 1 disorder F31.9 ; Borderline in tellectual functioning R41.83 and Extreme poverty Z59.5 [place] [address] [address] Aug, [facility] [address] [place] [id number] [place] [address] Aug, [facility] [address] [place] [id number] [place] [address] Aug, [facility] [address] [place] [id number] [place] [address] July, [facility] [address] [place] [id number] [place] [address] July, Acute bilateral low back pain with right -sided sciatica M54.41 [place] [address] [place] [id number] [place] [address] July, Bipolar 1 disorder F31.9 ; Borderline in tellectual functioning R41.83 and Extreme poverty Z59.5 [place] [address] [place] [id number] [place] [address] July, Back pain M54.9 and Diabetes E11.9 [place] [address] [place] [id number] [place] [address] Jun, Bipolar 1 disorder F31.9 ; Borderline in tellectual functioning R41.83 and Extreme poverty Z59.5 [place] [address] [place] [id number] [place] [address] Jun, Bipolar 1 disorder F31.9 ; Borderline in tellectual functioning R41.83 and Extreme poverty Z59.5 [place] [address] [place] [address] [id number] [place] [address] May, Visit for pelvic exam Z01.419 ; Acute va ginitis N76.0 and Diabetes E11.9 [facility] [address] [place] [id number] [place] [address] May, Bipolar 1 disorder F31.9 ; Borderline in tellectual functioning R41.83 and Extreme poverty Z59.5 [place] [address] [place] [id number] [place] [address] May, [facility] [address] [address] 07 May, 2016 [place] [address] [address] May, Bipolar 1 disorder F31.9 ; Borderline in tellectual functioning R41.83 and Extreme poverty Z59.5 [place] [address] [address] May, Hyperlipidemia, unspecified E78.5 [place] [address] [address] 13 Apr, 2016 Breast cancer screening Z12.39 [place] [address] [address] Mar, [place] [address] [address] Mar, Bipolar disorder, current episode mixed, unspecified F31.[address] [address] Mar, Bipolar 1 disorder F31.9 ; Borderline in tellectual functioning R41.83 and Extreme poverty Z59.5 [place] [address] [address] Feb, Acute nasopharyngitis J00 [address] [address] Feb, Dental examination Z01.[address] [address] Feb, Dental cavities K02.9 and Chronic period ontitis, unspecified K05.[address] [address] Feb, Low back pain M54.5 and Extreme poverty Z59.5 [place] [address] [address] Feb, [address] [address] Feb, Routine gynecological examination V72.31 ; Breast cancer screening Z12.39 and Herpes simplex type [address] [address] Feb, Diabetes E11.9 [place] [address] [address] Feb, Encounter for dental examination and leti aning without abnormal findings Z01.20 [place] [address] [address] Jan, Hyperlipidemia, unspecified E78.[address] [address] Jan, Bipolar 1 disorder F31.9 ; Borderline in tellectual functioning R41.83 and Extreme poverty Z59.[address] [address] Jan, Diabetes E11.9 [place] [address] [address] 17 Jan, 2016 Diabetes E11.[address] [address] 14 Dec, 2015 Bipolar 1 disorder F31.9 ; Borderline in tellectual functioning R41.83 and Extreme poverty Z59.[address] [address] 13 Dec, 2015 Bipolar disorder, current episode mixed, unspecified F31.60 and Borderline intellectual functioning R41.[address] [address] 16 Nov, 2015 Bipolar 1 disorder F31.9 ; Borderline in tellectual functioning R41.83 ; Extreme poverty Z59.5 and Non compliance with medical treatment Z91.19 [place] [address] [address] Oct, [address] [address] Oct, Dental caries K02.9 [place] [address] [address] Oct, Low back pain M54.5 and Other chronic pa in G89.29 [place] [address] [address] Oct, Bipolar 1 disorder F31.9 ; Borderline in tellectual functioning R41.83 ; Extreme poverty Z59.5 and Non compliance with medical treatment Z91.19 [place] [address] [address] Oct, [place] [address] [address] Oct, [place] [address] [address] Oct, Dental examination Z01.20 [place] [address] [address] Oct, Bipolar 1 disorder F31.9 ; Borderline in tellectual functioning R41.83 ; Extreme poverty Z59.5 and Non compliance with medical treatment Z91.19 [place] [address] [address] Oct, [place] [address] [address] Sep, Type 2 diabetes mellitus with complicati on E11.8 [place] [address] [address] [address] [address] Sep, Bipolar disorder, current episode mixed, unspecified F31.60 [place] [address] [address] Sep, Bipolar disorder, current episode mixed, unspecified F31.60 [place] [address] [address] Sep, Bipolar disorder, in partial remission, most recent episode manic F31.73 ; 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 ; Extreme poverty Z59.5 and Non compliance with medical treatment Z91.19 [place] [address] [address] 15 Aug, 2015 Bipolar disorder, in partial remission, most recent episode manic F31.73 ; 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 ; Extreme poverty Z59.5 and Non compliance with medical treatment Z91.19 [place] [address] [address] Aug, Bipolar disorder, in partial remission, most recent episode manic F31.73 ; 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 ; Extreme poverty Z59.5 and Non compliance with medical treatment Z91.19 [place] [address] [address] Aug, [place] [address] [address] July, Bipolar disorder, in partial remission, most recent episode manic F31.73 ; 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 ; Extreme poverty Z59.5 and Non compliance with medical treatment Z91.19 [place] [address] [address] July, Bipolar disorder, current episode mixed, unspecified F31.60 [place] [address] [address] July, Bipolar disorder, in partial remission, most recent episode manic F31.73 ; 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 ; Extreme poverty Z59.5 and Non compliance with medical treatment Z91.19 [place] [address] [address] July, correction current use of opiate analgesi c Z79.891 and Chronic pain G89.29 [place] [address] [address] Jun, correction current use of opiate analgesi c Z79.891 and Bipolar 1 disorder F31.9 [place] [address] [address] Jun, [place] [address] [address] Jun, [place] [address] [address] Jun, [place] [address] [address] Jun, Bipolar disorder, in partial remission, most recent episode manic F31.73 ; 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 and Non compliance with medical treatment Z91.19 [place] [address] [address] May, Bipolar disorder, in partial remission, most recent episode manic F31.73 ; 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 and Non compliance with medical treatment Z91.19 [place] [address] [address] May, Bipolar disorder, in partial remission, most recent episode manic F31.73 [place] [address] [address] May, Diabetes E11.9 and Chronic pain G89.29 [place] [address] [address] May, [place] [address] [address] May, Bipolar disorder, in partial remission, most recent episode manic F31.73 ; Non compliance with medical treatment Z91.19 and 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 [place] [address] [address] May, Type 2 diabetes mellitus with complicati on E11.8 and Back pain M54.9 [place] [address] [address] May, Bipolar disorder, in partial remission, most recent episode manic F31.73 and 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 [place] [address] [address] Apr, [place] [address] [address] Apr, [place] [address] [address] Apr, [place] [address] [address] 09 Apr, 2015 Diabetes E11.9 ; Irritable bowel syndrom e with diarrhea K58.0 and Lumbar radiculopathy M54.16 [place] [address] [address] Apr, Breast screening Z12.39 [place] [address] [address] Apr, Bipolar disorder, in partial remission, most recent episode manic F31.73 ; Non compliance with medical treatment Z91.19 and 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 [place] [address] [address] Mar, Edema, unspecified type R60.9 and Type 2 diabetes mellitus with complication E11.[address] [address] Mar, Bipolar disorder, in partial remission, most recent episode manic F31.73 ; Non compliance with medical treatment Z91.19 ; 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 and Extreme poverty Z59.5 [place] [address] [address] Mar, Bipolar disorder, current episode mixed, unspecified F31.60 ; 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 ; Extreme poverty Z59.5 and Generalized anxiety disorder F41.1 [place] [address] [address] Mar, Bipolar disorder, in partial remission, most recent episode manic F31.73 ; 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 and Extreme poverty Z59.[address] [address] Feb, Bipolar disorder, in partial remission, most recent episode manic F31.73 ; 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 and Extreme poverty Z59.5 [place] [address] [address] Feb, Bipolar disorder, in partial remission, most recent episode manic F31.73 ; 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 and Extreme poverty Z59.5 [place] [address] [address] Feb, [place] [address] [address] Jan, Type 2 diabetes mellitus with complicati on E11.8 and Petechiae R23.3 [place] [address] [address] Jan, Type 2 diabetes mellitus with complicati on E11.8 ; Edema, unspecified R60.9 ; Petechiae R23.3 and Diabetes E11.9 [place] [address] [address] Jan, Bipolar disorder, in partial remission, most recent episode manic F31.73 ; 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 and Extreme poverty Z59.5 [place] [address] [address] Jan, Bipolar disorder, in partial remission, most recent episode manic F31.73 ; 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 and Extreme poverty Z59.5 [place] [address] [address] Dec, Bipolar disorder, in partial remission, most recent episode manic F31.73 [place] [address] [address] Dec, Edema, due to unspecified malnutrition t ype, unspecified edema R60.9 and Essential hypertension I10 [place] [address] [address] Dec, Bipolar disorder, in partial remission, most recent episode manic F31.73 [facility] [address] [address] Nov, Bipolar I disorder, most recent episode (or current) mixed, unspecified 296.60 [facility] [address] [address] Nov, Stress incontinence, female 625.6 ; Back pain 724.5 and Leg pain 729.5 [facility] [address] [address] Nov, Generalized anxiety disorder 300.02 and Bipolar II disorder 296.89 [facility] [address] [address] Nov, Bipolar I disorder, most recent episode (or current) mixed, unspecified 296.60 [facility] [address] [address] Oct, [facility] [address] [address] Oct, [facility] [address] [address] Oct, [facility] [address] [address] Oct, Bipolar I disorder, most recent episode (or current) mixed, unspecified 296.60 [facility] [address] [address] Sep, Diabetes 250.00 [facility] [address] [address] Sep, Bipolar I disorder, most recent episode (or current) mixed, unspecified 296.60 [facility] [address] [address] Sep, [facility] [address] [address] Sep, [facility] [address] [address] Sep, Bipolar I disorder, most recent episode (or current) mixed, unspecified 296.60 [facility] [address] [address] Sep, Bipolar I disorder, most recent episode (or current) mixed, unspecified 296.60 [facility] [address] [address] Sep, [facility] [address] [address] Sep, Anxiety 300.00 ; Diabetes 250.00 and Hyp erlipidemia 272.4 [place] [address] [address] Aug, [place] [address] [address] Aug, [place] [address] [address] Aug, [facility] [address] [address] Aug, Bipolar I disorder, most recent episode (or current) mixed, unspecified 296.60 [place] [address] [address] Aug, Generalized anxiety disorder 300.02 and Bipolar II disorder 296.89 [place] [address] [address] July, Bipolar I disorder, most recent episode (or current) mixed, unspecified 296.60 [facility] [address] [address] July, Cough 786.2 [facility] [address] [address] July, Bipolar I disorder, most recent episode (or current) mixed, unspecified 296.60 [facility] [address] [address] Jun, Diabetes 250.00 [facility] [address] [place] [address] [place] [address] 14 Jun, 2014 [facility] [place] [facility] [address] [facility] [id number] [place] [address] 13 Jun, 2014 [facility] [place] [facility] [address] [id number] [place] [address] 24 May, 2014 [facility] [place] [facility] [address] [id number] [place] [address] 24 May, 2014 [facility] [place] [facility] [address] [id number] [place] [address] 10 May, 2014 [facility] [place] [facility] [address] [id number] [place] [address] 10 May, 2014 [facility] [place] [facility] [address] [id number] [place] [address] 10 May, 2014 [facility] [place] [facility] [address] [id number] [place] [address] 10 May, 2014 [facility] [place] [facility] [address] [id number] [place] [address] Apr, 2014 [facility] [place] [facility] [address] [id number] [place] [address] Apr, 2014 [facility] [place] [facility] [address] [id number] [place] [address] Apr, 2014 [facility] [place] [facility] [address] [id number] [place] [address] Apr, 2014 [facility] [place] [facility] [address] [id number] [place] [address] 10 Apr, 2014 [facility] [place] [facility] [address] [id number] [place] [address] 10 Apr, 2014 [facility] [place] [facility] [address] [id number] [place] [address] 05 Apr, 2014 [facility] [place] [facility] [address] [id number] [place] [address] 05 Apr, 2014 [facility] [place] [facility] [address] [id number] [place] [address] Mar, [facility] [place] [facility] [address] [facility] [id number] [place] [address] Mar, [facility] [place] [facility] [address] [facility] [id number] [place] [address] Mar, [facility] [place] [facility] [address] [id number] [place] [address] Mar, [facility] [place] [facility] [address] [id number] [place] [address] Mar, [facility] [place] [facility] [address] [facility] [id number] [place] [address] Mar, [facility] [place] [facility] [address] [id number] [place] [address] Mar, [facility] [place] [facility] [address] [id number] [place] [address] Mar, [facility] [place] [facility] [address] [id number] [place] [address] Feb, [facility] [place] [facility] [address] [facility] [id number] [place] [address] Feb, [facility] [place] [facility] [address] [id number] [place] [address] Feb, [facility] [place] [facility] [address] [id number] [place] [address] Feb, [facility] [place] [facility] [address] [id number] [place] [address] Feb, [facility] [place] [facility] [address] [facility] [id number] [place] [address] Feb, [facility] [place] [facility] [address] [id number] [place] [address] Feb, [facility] [place] [facility] [address] [id number] [place] [address] Feb, [facility] [place] [facility] [address] [id number] [place] [address] Feb, [facility] [place] [facility] [address] [id number] [place] [address] Feb, [facility] [place] [facility] [address] [id number] [place] [address] Jan, [facility] [place] [facility] [address] [id number] [place] [address] Jan, [facility] [place] [facility] [address] [id number] [place] [address] Jan, [facility] [place] [facility] [address] [id number] [place] [address] Jan, [facility] [place] [facility] [address] [id number] [place] [address] Jan, [facility] [place] [facility] [address] [id number] [place] [address] Jan, [facility] [place] [facility] [address] [id number] [place] [address] Jan, [facility] [place] [facility] [address] [id number] [place] [address] Jan, [facility] [place] [facility] [address] [id number] [place] [address] Jan, [facility] [place] [facility] [address] [id number] [place] [address] Jan, [facility] [place] [facility] [address] [id number] [place] [address] Jan, [facility] [place] [facility] [address] [id number] [place] [address] Jan, [facility] [place] [facility] [address] [id number] [place] [address] Jan, [facility] [place] [facility] [address] [place] [id number] [place] [address] Jan, [facility] [place] [facility] [address] [id number] [place] [address] Jan, [facility] [place] [facility] [address] [id number] [place] [address] Dec, [facility] [place] [facility] [address] [id number] [place] [address] 20 Dec, 2013 [facility] [place] [facility] [address] [id number] [place] [address] 16 Dec, 2013 [facility] [place] [facility] [address] [id number] [place] [address] 16 Dec, 2013 [facility] [place] [facility] [address] [id number] [place] [address] 09 Dec, 2013 [facility] [place] [facility] [address] [id number] [place] [address] 09 Dec, 2013 [facility] [place] [facility] [address] [id number] [place] [address] 07 Dec, 2013 [facility] [place] [facility] [address] [id number] [place] [address] 07 Dec, 2013 [facility] [place] [facility] [address] [id number] [place] [address] 25 Sep, 2013 [facility] [place] [facility] [address] [id number] [place] [address] 25 Sep, 2013 [facility] [place] [facility] [address] [id number] [place] [address] 10 Sep, 2013 [facility] [place] [facility] [address] [id number] [place] [address] 10 Sep, 2013 [facility] [place] [facility] [address] [id number] [place] [address] 08 Sep, 2013 [facility] [place] [facility] [address] [id number] [place] [address] 08 Sep, 2013 [facility] [place] [facility] [address] [id number] [place] [address] 08 Sep, 2013 [facility] [place] [facility] [address] [id number] [place] [address] 08 Sep, 2013 [facility] [place] [facility] [address] [id number] [place] [address] 08 Sep, 2013 [facility] [place] [facility] [address] [id number] [place] [address] 08 Sep, 2013 [facility] [place] [facility] [address] [id number] [facility] [address] 04 Nov, 2013 [facility] [place] [facility] [address] [facility] [id number] [facility] [address] 04 Nov, 2013 [facility] [place] [facility] [address] [facility] [id number] [facility] [address] 03 Nov, 2013 [facility] [place] [facility] [address] [id number] [place] [address] Nov, 2013 [facility] [place] [facility] [address] [facility] [id number] [place] [address] Nov, 2013 [facility] [place] [facility] [address] [id number] [place] [address] Oct, [facility] [place] [facility] [address] [facility] [id number] [facility] [address] Oct, [facility] [place] [facility] [address] [id number] [facility] [address] Oct, [facility] [place] [facility] [address] [facility] [id number] [facility] [address] Oct, [facility] [place] [facility] [address] [id number] [facility] [address] Oct, [facility] [place] [facility] [address] [facility] [id number] [place] [address] Oct, [facility] [place] [facility] [address] [id number] [place] [address] Oct, [facility] [place] [facility] [address] [facility] [id number] [place] [address] Oct, [facility] [place] [facility] [address] [id number] [place] [address] Oct, [facility] [place] [facility] [address] [facility] [id number] [place] [address] Oct, [facility] [place] [facility] [address] [id number] [place] [address] Oct, [facility] [place] [facility] [address] [id number] [place] [address] Oct, [facility] [place] [facility] [address] [id number] [place] [address] Oct, [facility] [place] [facility] [address] [facility] [id number] [place] [address] Oct, [facility] [place] [facility] [address] [id number] [place] [address] Sep, [facility] [place] [facility] [address] [facility] [id number] [place] [address] Sep, [facility] [place] [facility] [address] [facility] [id number] [place] [address] Sep, [facility] [place] [facility] [address] [id number] [place] [address] Sep, [facility] [place] [facility] [address] [id number] [place] [address] Sep, [facility] [place] [facility] [address] [id number] [place] [address] Sep, [facility] [place] [facility] [address] [id number] [place] [address] Sep, [facility] [place] [facility] [address] [id number] [place] [address] Sep, [facility] [place] [facility] [address] [id number] [place] [address] Aug, [facility] [place] [facility] [address] [id number] [place] [address] Aug, [facility] [place] [facility] [address] [id number] [place] [address] Aug, [facility] [place] [facility] [address] [id number] [place] [address] Aug, [facility] [place] [facility] [address] [id number] [place] [address] Aug, [facility] [place] [facility] [address] [id number] [place] [address] Aug, [facility] [place] [facility] [address] [id number] [place] [address] Aug, [facility] [place] [facility] [address] [id number] [place] [address] Aug, [facility] [place] [facility] [address] [id number] [place] [address] July, [facility] [place] [facility] [address] [id number] [place] [address] July, [facility] [place] [facility] [address] [id number] [place] [address] July, [facility] [place] [facility] [address] [id number] [place] [address] July, [facility] [place] [facility] [address] [id number] [place] [address] July, [facility] [place] [facility] [address] [id number] [place] [address] July, [facility] [place] [facility] [address] [id number] [place] [address] July, [facility] [place] [facility] [address] [id number] [place] [address] July, [facility] [place] [facility] [address] [id number] [place] [address] Jun, [facility] [place] [facility] [address] [id number] [place] [address] Jun, [facility] [place] [facility] [address] [id number] [place] [address] Jun, [facility] [place] [facility] [address] [id number] [place] [address] Jun, [facility] [place] [facility] [address] [id number] [place] [address] Jun, [facility] [place] [facility] [address] [id number] [place] [address] Jun, [facility] [place] [facility] [address] [id number] [place] [address] Jun, [facility] [place] [facility] [address] [facility] [id number] [facility] [address] Jun, [facility] [place] [facility] [address] [facility] [id number] [facility] [address] Jun, [facility] [place] [facility] [address] [facility] [id number] [place] [address] Jun, [facility] [place] [facility] [address] [facility] [id number] [facility] [address] Jun, [facility] [place] [facility] [address] [facility] [id number] [facility] [address] Jun, [facility] [place] [facility] [address] [id number] [place] [address] May, [facility] [place] [facility] [address] [id number] [place] [address] May, [facility] [place] [facility] [address] [id number] [facility] [address] May, [facility] [place] [facility] [address] [facility] [id number] [place] [address] May, [facility] [place] [facility] [address] [id number] [place] [address] May, [facility] [place] [facility] [address] [id number] [place] [address] May, [facility] [place] [facility] [address] [id number] [place] [address] May, [facility] [place] [facility] [address] [facility] [id number] [place] [address] May, [facility] [place] [facility] [address] [facility] [id number] [place] [address] May, [facility] [place] [facility] [address] [facility] [id number] [place] [address] May, [facility] [place] [facility] [address] [id number] [place] [address] May, [facility] [place] [facility] [address] [id number] [facility] [address] May, [facility] [place] [facility] [address] [facility] [id number] [place] [address] May, [facility] [place] [facility] [address] [id number] [place] [address] May, [facility] [place] [facility] [address] [id number] [place] [address] Apr, [facility] [place] [facility] [address] [id number] [place] [address] Apr, [facility] [place] [facility] [address] [id number] [place] [address] Apr, [facility] [place] [facility] [address] [id number] [place] [address] Apr, [facility] [place] [facility] [address] [id number] [place] [address] Apr, [facility] [place] [facility] [address] [id number] [place] [address] Apr, [facility] [place] [facility] [address] [id number] [place] [address] Mar, [facility] [place] [facility] [address] [id number] [place] [address] Mar, [facility] [place] [facility] [address] [id number] [place] [address] Mar, [facility] [place] [facility] [address] [id number] [place] [address] Mar, [facility] [place] [facility] [address] [facility] [id number] [place] [address] Mar, [facility] [place] [facility] [address] [id number] [place] [address] Mar, [facility] [place] [facility] [address] [id number] [place] [address] Mar, [facility] [place] [facility] [address] [id number] [place] [address] Mar, [facility] [address] [id number] [place] [address] Mar, [facility] [place] [facility] [address] [id number] [place] [address] Mar, [facility] [place] [facility] [address] [id number] [place] [address] Mar, [facility] [place] [facility] [address] [id number] [place] [address] Mar, [facility] [place] [facility] [address] [id number] [place] [address] Mar, [facility] [place] [facility] [address] [id number] [place] [address] Mar, [facility] [place] [facility] [address] [id number] [place] [address] Feb, [facility] [place] [facility] [address] [id number] [place] [address] Feb, [facility] [place] [facility] [address] [id number] [place] [address] Feb, [facility] [place] [facility] [address] [id number] [place] [address] Feb, [facility] [place] [facility] [address] [id number] [place] [address] Feb, [facility] [place] [facility] [address] [id number] [place] [address] Feb, [facility] [place] [facility] [address] [id number] [place] [address] Feb, [facility] [place] [facility] [address] [id number] [place] [address] Feb, [facility] [place] [facility] [address] [id number] [place] [address] Feb, [facility] [place] [facility] [address] [id number] [place] [address] Feb, [facility] [place] [facility] [address] [id number] [place] [address] 09 Feb, 2012 [facility] [place] [facility] [address] [facility] [id number] [place] [address] 09 Feb, 2012 [facility] [place] [facility] [address] [id number] [place] [address] 05 Feb, 2012 [facility] [place] [facility] [address] [id number] [place] [address] 05 Feb, 2012 [facility] [place] [facility] [address] [id number] [place] [address] 05 Feb, 2012 [facility] [place] [facility] [address] [facility] [id number] [place] [address] 05 Feb, 2012 [facility] [place] [facility] [address] [id number] [place] [address] 24 Dec, 2012 [facility] [place] [facility] [address] [id number] [place] [address] 24 Dec, 2012 [facility] [place] [facility] [address] [id number] [place] [address] 16 Dec, 2012 [facility] [place] [facility] [address] [id number] [place] [address] 16 Dec, 2012 [facility] [place] [facility] [address] [id number] [place] [address] 16 Dec, 2012 [facility] [place] [facility] [address] [id number] [place] [address] 16 Dec, 2012 [facility] [place] [facility] [address] [id number] [place] [address] 14 Dec, 2012 [facility] [place] [facility] [address] [id number] [place] [address] 14 Dec, 2012 [facility] [place] [facility] [address] [id number] [place] [address] 10 Dec, 2012 [facility] [place] [facility] [address] [id number] [place] [address] 10 Dec, 2012 [facility] [place] [facility] [address] [id number] [place] [address] 10 Dec, 2012 [facility] [place] [facility] [address] [facility] [id number] [facility] [address] 10 Dec, 2012 [facility] [place] [facility] [address] [facility] [id number] [place] [address] Dec, [facility] [place] [facility] [address] [facility] [id number] [place] [address] 25 Nov, 2012 [facility] [place] [facility] [address] [id number] [place] [address] 20 Nov, 2012 [facility] [place] [facility] [address] [facility] [id number] [place] [address] 18 Nov, 2012 [facility] [place] [facility] [address] [facility] [id number] [place] [address] 16 Nov, 2012 [facility] [place] [facility] [address] [id number] [place] [address] 12 Nov, 2012 [facility] [place] [facility] [address] [id number] [place] [address] 11 Nov, 2012 [facility] [place] [facility] [address] [id number] [place] [address] 05 Nov, 2012 [facility] [place] [facility] [address] [id number] [place] [address] 15 Oct, 2012 [facility] [place] [facility] [address] [id number] [place] [address] Oct, [facility] [place] [facility] [address] [id number] [place] [address] Sep, [facility] [place] [facility] [address] [id number] [place] [address] Sep, [facility] [place] [facility] [address] [facility] [id number] [place] [address] Sep, [facility] [place] [facility] [address] [id number] [place] [address] Sep, [facility] [place] [facility] [address] [id number] [place] [address] Sep, [facility] [place] [facility] [address] [id number] [place] [address] Sep, [facility] [place] [facility] [address] [facility] [id number] [place] [address] 08 Sep, 2012 [facility] [place] [facility] [address] [id number] [place] [address] Aug, [facility] [place] [facility] [address] [id number] [place] [address] 18 Aug, 2012 [facility] [place] [facility] [address] [id number] [place] [address] 16 Aug, 2012 [facility] [place] [facility] [address] [facility] [id number] [place] [address] Aug, [facility] [place] [facility] [address] [id number] [place] [address] Aug, [facility] [place] [facility] [address] [id number] [place] [address] Aug, [facility] [place] [facility] [address] [id number] [place] [address] Aug, [facility] [place] [facility] [address] [id number] [place] [address] Aug, [facility] [place] [facility] [address] [id number] [place] [address] July, [facility] [place] [facility] [address] [id number] [place] [address] July, [facility] [place] [facility] [address] [id number] [place] [address] July, [facility] [place] [facility] [address] [facility] [id number] [place] [id number] July, [facility] [place] [facility] [address] [id number] [place] [address] July, [facility] [place] [facility] [address] [id number] [place] [address] Jun, [facility] [place] [facility] [address] [id number] [place] [address] May, [facility] [place] [facility] [address] [id number] [place] [address] 14 May, 2012 [facility] [place] [facility] [address] [id number] [place] [address] 04 May, 2012 [facility] [place] [facility] [address] [id number] [place] [address] Apr, [facility] [place] [facility] [address] [id number] [place] [address] Apr, [facility] [place] [facility] [address] [id number] [place] [address] Apr, [facility] [place] [facility] [address] [id number] [place] [address] Mar, [facility] [place] [facility] [address] [id number] [place] [address] Mar, [facility] [place] [facility] [address] [id number] [place] [address] Mar, [facility] [place] [facility] [address] [id number] [place] [address] Mar, [facility] [place] [facility] [address] [id number] [place] [address] Mar, [facility] [place] [facility] [address] [id number] [place] [address] Mar, [facility] [place] [facility] [address] [id number] [place] [address] Mar, [facility] [place] [facility] [address] [id number] [place] [address] Feb, [facility] [place] [facility] [address] [id number] [place] [address] 31 Feb, 2012 [facility] [place] [facility] [address] [id number] [place] [address] 18 Feb, 2012 [facility] [place] [facility] [address] [id number] [place] [address] 18 Feb, 2012 [facility] [place] [facility] [address] [id number] [place] [address] 17 Feb, 2012 [facility] [place] [facility] [address] [id number] [place] [address] Feb, [facility] [place] [facility] [address] [id number] [place] [address] Feb, [facility] [place] [facility] [address] [id number] [place] [address] Feb, [facility] [place] [facility] [address] [id number] [place] [address] Jan, [facility] [place] [facility] [address] [id number] [place] [address] Jan, [facility] [place] [facility] [address] [id number] [place] [address] Jan, [facility] [place] [facility] [address] [id number] [place] [address] Jan, [facility] [place] [facility] [address] [id number] [place] [address] Jan, [facility] [place] [facility] [address] [id number] [place] [address] Jan, [facility] [place] [facility] [address] [id number] [place] [address] Jan, [facility] [place] [facility] [address] [id number] [place] [address] Jan, [facility] [place] [facility] [address] [id number] [place] [address] Jan, [facility] [place] [facility] [address] [id number] [place] [address] Jan, [facility] [place] [facility] [address] [id number] [place] [address] Jan, [facility] [place] [facility] [id number] [place] [address] Jan, [facility] [place] [facility] [address] [id number] [place] [address] Jan, [facility] [place] [facility] [address] [id number] [place] [address] Jan, [facility] [place] [facility] [address] [id number] [place] [address] Jan, [facility] [place] [facility] [address] [id number] [place] [address] Jan, [facility] [place] [facility] [address] [id number] [place] [address] Dec, [facility] [place] [facility] [address] [id number] [place] [address] Dec, [facility] [place] [facility] [address] [id number] [place] [address] Dec, [facility] [place] [facility] [address] [id number] [place] [address] Dec, [facility] [place] [facility] [address] [id number] [place] [address] Dec, [facility] [place] [facility] [address] [id number] [place] [address] Dec, [facility] [place] [facility] [address] [id number] [place] [address] Dec, [facility] [place] [facility] [address] [id number] [place] [address] Dec, [facility] [place] [facility] [address] [id number] [place] [address] 08 Dec, 2011 [facility] [place] [facility] [address] [id number] [place] [address] 05 Dec, 2011 [facility] [place] [facility] [address] [id number] [place] [address] 18 Nov, 2011 [facility] [place] [facility] [address] [id number] [place] [address] 13 Nov, 2011 [facility] [place] [facility] [address] [id number] [place] [address] 24 Oct, 2011 [facility] [place] [facility] [address] [id number] [place] [address] Oct, [facility] [place] [facility] [address] [id number] [facility] [address] 17 Oct, 2011 [facility] [place] [facility] [address] [id number] [facility] [address] Oct, [facility] [place] [facility] [address] [id number] [facility] [address] Oct, [facility] [place] [facility] [address] [id number] [facility] [address] Oct, [facility] [place] [facility] [address] [id number] [facility] [address] Oct, [facility] [place] [facility] [address] [facility] [id number] [facility] [address] Sep, [facility] [place] [facility] [address] [id number] [place] [address] Aug, [facility] [place] [facility] [address] [id number] [place] [address] Aug, [facility] [place] [facility] [address] [id number] [place] [address] Aug, [facility] [place] [facility] [address] [id number] [facility] [address] Aug, [facility] [place] [facility] [address] [id number] [place] [address] Aug, [facility] [place] [facility] [address] [id number] [place] [address] July, [facility] [place] [facility] [address] [id number] [place] [address] July, [facility] [place] [facility] [address] [id number] [place] [address] July, [facility] [place] [facility] [address] [id number] [place] [address] Jun, [facility] [place] [facility] [address] [id number] [place] [address] Jun, [facility] [place] [facility] [address] [id number] [place] [address] Jun, [facility] [place] [facility] [address] [id number] [place] [address] 02 Jun, 2011 [facility] [place] [facility] [address] [id number] [place] [address] 30 May, 2011 [facility] [place] [facility] [address] [id number] [place] [address] 30 May, 2011 [facility] [place] [facility] [address] [id number] [place] [address] 29 May, 2011 [facility] [place] [facility] [address] [id number] [place] [address] 28 May, 2011 [facility] [place] [facility] [address] [id number] [place] [address] May, [facility] [place] [facility] [address] [id number] [place] [address] May, [facility] [place] [facility] [address] [id number] [place] [address] May, [facility] [place] [facility] [address] [id number] [place] [address] May, [facility] [place] [facility] [address] [id number] [place] [address] 08 May, 2011 [facility] [place] [facility] [address] [id number] [place] [address] 05 May, 2011 [facility] [place] [facility] [address] [id number] [place] [address] May, [facility] [place] [facility] [address] [id number] [place] [address] May, [facility] [place] [facility] [address] [id number] [place] [address] Mar, [facility] [place] [facility] [address] [id number] [place] [address] Mar, [facility] [place] [facility] [address] [id number] [place] [address] Feb, [facility] [place] [facility] [address] [id number] [place] [address] Feb, [facility] [address] [id number] [place] [address] 20 Feb, 2011 [facility] [place] [facility] [address] [id number] [place] [address] 15 Feb, 2011 [facility] [place] [facility] [address] [id number] [place] [address] 13 Feb, 2011 [facility] [place] [facility] [address] [id number] [place] [address] Feb, [facility] [place] [facility] [address] [id number] [place] [address] Feb, [facility] [place] [facility] [address] [id number] [place] [address] Jan, [facility] [place] [facility] [address] [id number] [place] [address] Jan, [facility] [place] [facility] [address] [id number] [place] [address] Jan, [facility] [place] [facility] [address] [id number] [place] [address] Jan, [facility] [place] [facility] [address] [id number] [place] [address] Jan, [facility] [place] [facility] [address] [id number] [place] [address] Jan, [facility] [place] [facility] [address] [id number] [place] [address] Dec, [facility] [place] [facility] [address] [id number] [place] [address] Dec, [facility] [place] [facility] [address] [id number] [place] [address] Dec, [facility] [place] [facility] [address] [id number] [place] [address] July, [facility] [place] [facility] [address] [id number] [place] [address] July, [facility] [place] [facility] [address] [id number] [place] [address] 08 Feb, 2010 [facility] [place] [facility] [address] [id number] [place] [address] 18 Jan, 2010 [facility] [place] [facility] [address] [id number] [place] [address] Dec, [facility] [place] [facility] [address] [id number] [place] [address] 12 Dec, 2009 [facility] [place] [facility] [address] [id number] [place] [address] 15 Sep, 2009 [facility] [place] [facility] [address] [id number] [place] [address] Aug, [facility] [place] [facility] [address] [id number] [place] [address] Jun, [facility] [place] [facility] [address] [id number] [place] [address] Jun, [facility] [place] [facility] [address] [id number] [place] [address] Jan, [facility] [place] [facility] [address] [id number] [place] [address] Jan, [facility] [place] [facility] [address] [id number] [place] [address] Jan, [facility] [place] [facility] [address] [id number] [place] [address] Jan, [facility] [place] [facility] [address] [id number] [place] [address] 29 Dec, 2008 [facility] [place] [facility] [address] [id number] [place] [address] Dec, [facility] [place] [facility] [address] [id number] [place] [address] 15 Dec, 2008 [facility] [place] [facility] [address] [id number] [place] [address] Nov, [facility] [place] [facility] [address] [id number] [place] [address] July, [facility] [place] [facility] [address] [id number] [place] [address] May, [facility] [address] [id number] [place] [address] Apr, [facility] [address] [id number] [place] [address] Feb, [facility] [address] [id number] [place] [address] Dec, IMMUNIZATIONS No Known Immunizations SOCIAL HISTORY Never Assessed REASON FOR VISIT PLAN OF CARE VITAL SIGNS MEDICATIONS Unknown Medications RESULTS No Results PROCEDURES Procedure Date Ordered Result Body Site PSYTX PT&/FAMILY 45 MINUTES July 11, 2013 INSTRUCTIONS MEDICATIONS ADMINISTERED No Known Medications [...]
--- OUTSIDE RECORDS SUMMARY | 2019-06-22 19:46 | XMS REPORT ---
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 Active 69702300 Problem Irritable bowel syndrome with diarrhea K58.0 Active 491293499 Problem Diabetes E11.9 Active 804674031 Problem Bipolar 1 disorder F31.9 Active 3 52125918 Problem Lumbar radiculopathy M54.16 Active 284626354 Problem Hyperlipidemia, unspecified E78.5 Ac tive 26655025 Problem Acute bilateral low back pain with right-sided sciatica M54.41 Active 841367154 Problem New daily persistent headache G44.52 Active 295029669 Problem Insulin long-term use Z79.4 Active 897130188 Problem Type 2 diabetes mellitus with complication E11.8 Active 191052597 Problem Post laminectomy syndrome M96.1 Acti ve 86870480 Problem Rhinosinusitis J32.9 Active 13678 000 Problem 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 Active 548099814 Problem Eye exam normal Z01.00 Active 2438 12456 Problem Type 2 diabetes mellitus with hyperglycemia E11.65 Active 70348138 Problem Lumbago with sciatica, left side M54.42 Active 129299767 Problem Other chronic pain G89.29 Active 8 7135150 Problem Hypertriglyceridemia E78.1 Active [id number] ALLERGIES No Information ENCOUNTERS Encounter Location Date Diagnosis [facility] [address] [id number] [place] [address] May, [facility] [address] [id number] [place] [address] Apr, [facility] [address] [address] Apr, [facility] [address] [address] Mar, Bipolar 1 disorder F31.9 ; Borderline in tellectual functioning R41.83 and Extreme poverty Z59.5 [place] [address] [address] Mar, Exercise counseling Z71.82 [place] [address] [address] Mar, [place] [address] [address] Mar, Bipolar disorder, in partial remission, most recent episode manic F31.73 and 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 [place] [address] [address] Mar, [facility] [address] [address] Mar, Exercise counseling Z71.82 [place] [address] [address] Feb, Bipolar 1 disorder F31.9 ; Borderline in tellectual functioning R41.83 and Extreme poverty Z59.5 [place] [address] [address] Feb, [facility] [address] [address] Feb, Type 2 diabetes mellitus with complicati on E11.8 [facility] [address] [facility] [id number] [address] [place] [address] Feb, Acute low back pain without sciatica, unspecified back pain laterality M54.5 [facility] [address] [id number] [place] [address] Feb, Bipolar 1 disorder F31.9 ; Borderline in tellectual functioning R41.83 and Extreme poverty Z59.5 [facility] [id number] [place] [address] Jan, Bipolar 1 disorder F31.9 ; Borderline in tellectual functioning R41.83 and Extreme poverty Z59.5 [facility] [id number] [place] [address] Jan, [facility] [id number] [place] [address] Jan, Type 2 diabetes mellitus with complicati on E11.8 [facility] [address] [address] Jan, Type 2 diabetes mellitus with complicati on E11.8 ; Dysuria R30.0 and Diarrhea, unspecified type R19.7 [facility] [id number] [place] [address] Jan, Bipolar 1 disorder F31.9 ; Borderline in tellectual functioning R41.83 and Extreme poverty Z59.5 [facility] [id number] [place] [address] Dec, [facility] [address] [address] Dec, [facility] [address] [id number] [place] [address] Dec, [facility] [address] [address] Dec, [facility] [id number] [place] [address] Dec, Rhinosinusitis J32.9 [facility] [address] [address] Dec, [facility] [address] [id number] [place] [address] Dec, Bipolar 1 disorder F31.9 ; Borderline in tellectual functioning R41.83 and Extreme poverty Z59.5 [facility] [address] [id number] [place] [address] 10 Dec, 2018 Type 2 diabetes mellitus with complicati on E11.8 and Type 2 diabetes mellitus with hyperglycemia E11.65 [place] [address] [address] Dec, [place] [address] [address] Dec, Type 2 diabetes mellitus with complicati on E11.8 ; Insulin long-term use Z79.4 ; Hyperglycemia R73.9 and Yeast infection B37.9 [place] [address] [address] Dec, Encounter for immunization Z23 [place] [address] [address] Nov, [place] [address] [address] Nov, Bipolar 1 disorder F31.9 ; Borderline in tellectual functioning R41.83 and Extreme poverty Z59.5 [place] [address] [address] Nov, [place] [address] [address] Nov, [place] [address] [address] Nov, Borderline intellectual functioning R41. 83 and Bipolar disorder, in partial remission, most recent episode manic F31.73 [facility] [address] [place] [id number] [place] [address] Nov, Epigastric abdominal pain R1 0.13 [place] [address] [address] Nov, Bipolar 1 disorder F31.9 ; Borderline in tellectual functioning R41.83 and Extreme poverty Z59.5 [facility] [address] [facility] [id number] [address] [place] [address] Oct, Dysuria R30.0 and Acute cyst itis without hematuria N30.00 [facility] [address] [facility] [id number] [place] [address] Oct, [facility] [address] [address] Oct, [facility] [address] [address] Oct, Bipolar 1 disorder F31.9 ; Borderline in tellectual functioning R41.83 and Extreme poverty Z59.5 [facility] [address] [address] Oct, [facility] [address] [address] Oct, [facility] [address] [address] Oct, Bipolar disorder, in partial remission, most recent episode manic F31.73 and 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 [place] [id number] Sep, Dental examination Z01.20 and Dental car ies K02.9 [facility] [address] [id number] [place] [address] Sep, Mouth pain K13.79 [facility] [address] [address] Sep, [facility] [address] [address] Sep, Bipolar 1 disorder F31.9 ; Borderline in tellectual functioning R41.83 and Extreme poverty Z59.5 [place] [address] [address] Sep, [place] [address] [address] Sep, [place] [address] [address] Sep, Diabetes E11.9 ; Hyperglycemia R73.9 ; L eliseo term current use of insulin Z79.4 and Diarrhea, unspecified type R19.7 [place] [address] [address] Sep, [place] [address] [address] Sep, Bipolar 1 disorder F31.9 ; Borderline in tellectual functioning R41.83 and Extreme poverty Z59.5 [place] [address] [address] Sep, [place] [address] [address] Sep, [place] [address] [address] Aug, Bipolar 1 disorder F31.9 ; Borderline in tellectual functioning R41.83 and Extreme poverty Z59.5 [place] [address] [address] Aug, Exercise counseling Z71.82 [place] [address] [address] Aug, Bipolar 1 disorder F31.9 ; Borderline in tellectual functioning R41.83 and Extreme poverty Z59.5 [place] [address] [address] Aug, Borderline intellectual functioning R41. 83 and Bipolar disorder, in partial remission, most recent episode manic F31.73 [place] [address] [address] 10 Aug, 2018 Low back pain M54.5 [facility] [address] [address] Aug, Borderline intellectual functioning R41. 83 and Bipolar disorder, in partial remission, most recent episode manic F31.73 [facility] [address] [address] July, Acute superficial gastritis without hemo rrhage K29.00 ; Low back pain M54.5 and Other chronic pain G89.29 [facility] [address] [address] July, [place] [address] [address] July, [facility] [address] [address] Jun, [facility] [address] [facility] [id number] [address] [place] [address] Jun, Bilateral lower extremity ed epi R60.0 [place] [address] [address] Jun, Borderline intellectual functioning R41. 83 and Bipolar disorder, in partial remission, most recent episode manic F31.73 [facility] [address] [address] Jun, [facility] [address] [address] May, Bronchitis J40 [facility] [address] [address] 14 May, 2018 Screening for breast cancer Z12.31 and E ncounter for immunization Z23 [place] [address] [address] 06 May, 2018 Bipolar 1 disorder F31.9 ; Borderline in tellectual functioning R41.83 and Extreme poverty Z59.5 [place] [address] [address] Apr, [facility] [address] [address] 07 Apr, 2018 Bipolar 1 disorder F31.9 ; Borderline in tellectual functioning R41.83 and Extreme poverty Z59.5 [place] [address] [address] 05 Apr, 2018 Irritable bowel syndrome with diarrhea K 58.0 and Dental abscess K04.7 [place] [address] [address] Mar, [place] [address] [address] Mar, [place] [address] [address] Mar, Bipolar 1 disorder F31.9 ; Borderline in tellectual functioning R41.83 and Extreme poverty Z59.5 [place] [address] [address] Mar, Hypertriglyceridemia E78.1 [place] [address] [address] Mar, Borderline intellectual functioning R41. 83 and Bipolar disorder, in partial remission, most recent episode manic F31.73 [place] [address] [address] Mar, Bipolar 1 disorder F31.9 ; Borderline in tellectual functioning R41.83 and Extreme poverty Z59.5 [place] [address] [address] Feb, Generalized abdominal pain R10.84 and Di arrhea, unspecified type R19.7 [place] [address] [address] Feb, [place] [address] [address] Feb, Myalgia M79.10 and Nausea R11.0 [place] [address] [address] Feb, Bipolar 1 disorder F31.9 ; Borderline in tellectual functioning R41.83 and Extreme poverty Z59.5 [place] [address] [address] Feb, [place] [address] [address] Feb, Diabetes E11.9 ; Hyperglycemia R73.9 and Diarrhea, unspecified R19.7 [place] [address] [address] Feb, Diarrhea, unspecified type R19.7 ; Abdom inal pain R10.9 and Encounter for immunization Z23 [place] [address] [address] Jan, Bipolar 1 disorder F31.9 ; Borderline in tellectual functioning R41.83 and Extreme poverty Z59.5 [place] [address] [address] Dec, Bipolar 1 disorder F31.9 ; Borderline in tellectual functioning R41.83 and Extreme poverty Z59.5 [place] [address] [address] Nov, [place] [address] [address] Nov, Hypertriglyceridemia E78.1 [place] [address] [address] Nov, Bipolar 1 disorder F31.9 ; Borderline in tellectual functioning R41.83 and Extreme poverty Z59.5 [place] [address] [address] Nov, Type 2 diabetes mellitus with complicati on E11.8 [place] [address] [address] Nov, Borderline intellectual functioning R41. 83 and Bipolar disorder, in partial remission, most recent episode manic F31.73 [place] [address] [address] 12 Nov, 2017 Type 2 diabetes mellitus with complicati on E11.8 [place] [address] [address] 11 Nov, 2017 Bipolar 1 disorder F31.9 ; Borderline in tellectual functioning R41.83 and Extreme poverty Z59.5 [place] [address] [address] Nov, Type 2 diabetes mellitus with complicati on E11.8 ; Pain of left upper arm M79.622 ; Pain in right upper arm M79.621 ; Hyperglycemia R73.9 ; Lumbago with sciatica, left side M54.42 and Other chronic pain G89.29 [place] [address] [address] Oct, Bipolar 1 disorder F31.9 ; Borderline in tellectual functioning R41.83 and Extreme poverty Z59.5 [place] [address] [address] Oct, Type 2 diabetes mellitus with hyperglyce didi E11.65 ; 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 and Other acute gastritis without hemorrhage K29.00 [place] [address] [address] Oct, Bipolar 1 disorder F31.9 ; Borderline in tellectual functioning R41.83 and Extreme poverty Z59.5 [place] [address] [address] Sep, Diarrhea, unspecified R19.7 and Vomiting , unspecified R11.10 [place] [address] [address] Aug, Type 2 diabetes mellitus with complicati on E11.8 [place] [address] [address] Aug, [place] [address] [address] Aug, Bipolar 1 disorder F31.9 ; Borderline in tellectual functioning R41.83 and Extreme poverty Z59.5 [place] [address] [address] Aug, Borderline intellectual functioning R41. 83 and Bipolar disorder, in partial remission, most recent episode manic F31.73 [place] [address] [address] Aug, Bipolar 1 disorder F31.9 [place] [address] [address] Aug, [place] [address] [address] Aug, [place] [address] [address] Aug, Bipolar 1 disorder F31.9 ; Borderline in tellectual functioning R41.83 and Extreme poverty Z59.5 [place] [address] [address] July, Type 2 diabetes mellitus with complicati on E11.8 [place] [address] [address] July, Bipolar 1 disorder F31.9 ; Borderline in tellectual functioning R41.83 and Extreme poverty Z59.5 [place] [address] [address] Jun, Bipolar 1 disorder F31.9 ; Borderline in tellectual functioning R41.83 and Extreme poverty Z59.5 [place] [address] [address] Jun, Bipolar 1 disorder F31.9 ; Borderline in tellectual functioning R41.83 and Extreme poverty Z59.5 [place] [address] [address] Jun, Bipolar 1 disorder F31.9 ; Borderline in tellectual functioning R41.83 and Extreme poverty Z59.5 [place] [address] [address] May, Urinary tract infection without hematuri a, site unspecified N39.0 [place] [address] [address] May, Bipolar 1 disorder F31.9 ; Borderline in tellectual functioning R41.83 and Extreme poverty Z59.5 [place] [address] [address] Apr, Diabetes E11.9 and Breast cancer screeni ng Z12.31 [place] [address] [address] Apr, Bipolar 1 disorder F31.9 and 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 [place] [address] [address] Mar, Bipolar 1 disorder F31.9 ; Borderline in tellectual functioning R41.83 and Extreme poverty Z59.5 [place] [address] [address] Mar, New daily persistent headache G44.52 ; L eg pain 729.5 and History of carpal tunnel release Z98.890 [place] [address] [address] Mar, Hyperlipidemia, unspecified E78.5 [place] [address] [address] Mar, Bipolar 1 disorder F31.9 ; Borderline in tellectual functioning R41.83 and Extreme poverty Z59.5 [place] [address] [address] Feb, Bipolar 1 disorder F31.9 ; Borderline in tellectual functioning R41.83 and Extreme poverty Z59.5 [place] [address] [address] Feb, Diabetes E11.9 [place] [address] [address] Feb, Viral syndrome B34.9 [place] [address] [address] Jan, Other viral agents as the cause of disea ses classified elsewhere B97.89 and Acute upper respiratory infection, unspecified J06.9 [place] [address] [address] Jan, Bipolar 1 disorder F31.9 and 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 [place] [address] [address] Jan, Bipolar 1 disorder F31.9 ; Borderline in tellectual functioning R41.83 and Extreme poverty Z59.5 [place] [address] [address] Dec, Diabetes E11.9 [place] [address] [address] Dec, Diabetes E11.9 and Encounter for immuniz ation Z23 [address] [address] Dec, Bipolar 1 disorder F31.9 ; Borderline in tellectual functioning R41.83 and Extreme poverty Z59.5 [place] [address] [address] Dec, Back pain M54.9 [place] [address] [address] Nov, [address] [address] Nov, Bipolar 1 disorder F31.9 ; Borderline in tellectual functioning R41.83 and Extreme poverty Z59.5 [place] [address] [address] Nov, Bipolar 1 disorder F31.9 ; Borderline in tellectual functioning R41.83 and Extreme poverty Z59.5 [place] [address] [address] Oct, Borderline intellectual functioning R41. 83 and Bipolar 1 disorder F31.9 [place] [address] [address] Oct, Bipolar 1 disorder F31.9 ; Borderline in tellectual functioning R41.83 and Extreme poverty Z59.5 [place] [address] [address] Oct, Back pain M54.9 [place] [address] [address] Oct, Borderline intellectual functioning R41. 83 and Type 2 diabetes mellitus with complication E11.8 [place] [address] [address] Sep, Bipolar 1 disorder F31.9 ; Borderline in tellectual functioning R41.83 and Extreme poverty Z59.5 [place] [address] [address] Sep, Borderline intellectual functioning R41. 83 and Bipolar 1 disorder F31.9 [place] [address] [address] Sep, Bipolar 1 disorder F31.9 ; Borderline in tellectual functioning R41.83 and Extreme poverty Z59.5 [place] [address] [address] Aug, Diabetes E11.9 ; Hyperlipidemia, unspeci fied E78.5 and Lumbar radiculopathy M54.16 [place] [address] [address] Aug, Bipolar 1 disorder F31.9 ; Borderline in tellectual functioning R41.83 and Extreme poverty Z59.5 [place] [address] [address] Aug, [place] [address] [address] Aug, [facility] [id number] [place] [address] Aug, [facility] [id number] [place] [address] July, [facility] [id number] [place] [address] July, Acute bilateral low back pain with right -sided sciatica M54.41 [facility] [id number] [place] [address] July, Bipolar 1 disorder F31.9 ; Borderline in tellectual functioning R41.83 and Extreme poverty Z59.5 [place] [id number] [place] [address] July, Back pain M54.9 and Diabetes E11.9 [place] [id number] [place] [address] Jun, Bipolar 1 disorder F31.9 ; Borderline in tellectual functioning R41.83 and Extreme poverty Z59.5 [place] [id number] [place] [address] Jun, Bipolar 1 disorder F31.9 ; Borderline in tellectual functioning R41.83 and Extreme poverty Z59.5 [place] [id number] [place] [address] May, Visit for pelvic exam Z01.419 ; Acute va ginitis N76.0 and Diabetes E11.9 [facility] [address] [facility] [place] [address] May, Bipolar 1 disorder F31.9 ; Borderline in tellectual functioning R41.83 and Extreme poverty Z59.5 [facility] [id number] [place] [address] May, [facility] [id number] [place] [address] May, [facility] [address] [address] May, Bipolar 1 disorder F31.9 ; Borderline in tellectual functioning R41.83 and Extreme poverty Z59.5 [place] [address] [place] [id number] May, Hyperlipidemia, unspecified E78.5 [place] [address] [address] Apr, Breast cancer screening Z12.39 [place] [address] [address] Mar, [place] [address] [address] Mar, Bipolar disorder, current episode mixed, unspecified F31.60 [place] [address] [address] Mar, Bipolar 1 disorder F31.9 ; Borderline in tellectual functioning R41.83 and Extreme poverty Z59.5 [place] [address] [address] Feb, Acute nasopharyngitis J00 [place] [address] [address] 27 Feb, 2016 Dental examination Z01.[address] [address] Feb, Dental cavities K02.9 and Chronic period ontitis, unspecified K05.30 [place] [address] [address] Feb, Low back pain M54.5 and Extreme poverty Z59.5 [place] [address] [address] 08 Feb, 2016 [place] [address] [address] Feb, Routine gynecological examination V72.31 ; Breast cancer screening Z12.39 and Herpes simplex type 1 infection B00.9 [place] [address] [address] Feb, Diabetes E11.9 [place] [address] [place] [address] Feb, Encounter for dental examination and leti aning without abnormal findings Z01.20 [place] [address] [address] Jan, Hyperlipidemia, unspecified E78.5 [place] [address] [address] Jan, Bipolar 1 disorder F31.9 ; Borderline in tellectual functioning R41.83 and Extreme poverty Z59.5 [place] [address] [address] 18 Jan, 2016 Diabetes E11.9 [place] [address] [address] Jan, Diabetes E11.9 [place] [address] [address] 14 Dec, 2015 Bipolar 1 disorder F31.9 ; Borderline in tellectual functioning R41.83 and Extreme poverty Z59.5 [place] [address] [address] 13 Dec, 2015 Bipolar disorder, current episode mixed, unspecified F31.60 and 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 [place] [address] [address] 16 Nov, 2015 Bipolar 1 disorder F31.9 ; Borderline in tellectual functioning R41.83 ; Extreme poverty Z59.5 and Non compliance with medical treatment Z91.19 [place] [address] [address] Oct, [address] [address] Oct, Dental caries K02.9 [place] [address] [address] Oct, Low back pain M54.5 and Other chronic pa in G89.29 [place] [address] [address] Oct, Bipolar 1 disorder F31.9 ; Borderline in tellectual functioning R41.83 ; Extreme poverty Z59.5 and Non compliance with medical treatment Z91.19 [place] [address] [address] Oct, [place] [address] [address] Oct, [place] [address] [address] Oct, Dental examination Z01.20 [place] [address] [address] Oct, Bipolar 1 disorder F31.9 ; Borderline in tellectual functioning R41.83 ; Extreme poverty Z59.5 and Non compliance with medical treatment Z91.19 [place] [address] [address] Oct, [place] [address] [address] Sep, Type 2 diabetes mellitus with complicati on E11.8 [place] [address] [address] Sep, Bipolar disorder, current episode mixed, unspecified F31.60 [place] [address] [address] Sep, Bipolar disorder, current episode mixed, unspecified F31.60 [place] [address] [address] Sep, Bipolar disorder, in partial remission, most recent episode manic F31.73 ; 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 ; Extreme poverty Z59.5 and Non compliance with medical treatment Z91.19 [place] [address] [address] Aug, Bipolar disorder, in partial remission, most recent episode manic F31.73 ; 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 ; Extreme poverty Z59.5 and Non compliance with medical treatment Z91.19 [place] [address] [address] Aug, Bipolar disorder, in partial remission, most recent episode manic F31.73 ; 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 ; Extreme poverty Z59.5 and Non compliance with medical treatment Z91.19 [place] [address] [address] Aug, [place] [address] [address] July, Bipolar disorder, in partial remission, most recent episode manic F31.73 ; 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 ; Extreme poverty Z59.5 and Non compliance with medical treatment Z91.19 [place] [address] [address] July, Bipolar disorder, current episode mixed, unspecified F31.60 [place] [address] [address] July, Bipolar disorder, in partial remission, most recent episode manic F31.73 ; 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 ; Extreme poverty Z59.5 and Non compliance with medical treatment Z91.19 [place] [address] [address] July, [facility] current use of opiate analgesi c Z79.891 and Chronic pain G89.29 [place] [address] [address] Jun, [facility] current use of opiate analgesi c Z79.891 and Bipolar 1 disorder F31.9 [place] [address] [address] Jun, [place] [address] [address] Jun, [place] [address] [address] Jun, [place] [address] [address] Jun, Bipolar disorder, in partial remission, most recent episode manic F31.73 ; 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 and Non compliance with medical treatment Z91.19 [place] [address] [address] May, Bipolar disorder, in partial remission, most recent episode manic F31.73 ; 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 and Non compliance with medical treatment Z91.19 [place] [address] [address] May, Bipolar disorder, in partial remission, most recent episode manic F31.73 [place] [address] [address] May, Diabetes E11.9 and Chronic pain G89.29 [place] [address] [address] May, [place] [address] [address] May, Bipolar disorder, in partial remission, most recent episode manic F31.73 ; Non compliance with medical treatment Z91.19 and 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 [place] [address] [address] May, Type 2 diabetes mellitus with complicati on E11.8 and Back pain M54.9 [place] [address] [address] May, Bipolar disorder, in partial remission, most recent episode manic F31.73 and 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 [place] [address] [address] Apr, [place] [address] [address] Apr, [place] [address] [address] 10 Apr, 2015 [place] [address] [address] 09 Apr, 2015 Diabetes E11.9 ; Irritable bowel syndrom e with diarrhea K58.0 and Lumbar radiculopathy M54.16 [place] [address] [address] 02 Apr, 2015 Breast screening Z12.39 [place] [address] [address] 02 Apr, 2015 Bipolar disorder, in partial remission, most recent episode manic F31.73 ; Non compliance with medical treatment Z91.19 and 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 [place] [address] [address] Mar, Edema, unspecified type R60.9 and Type 2 diabetes mellitus with complication E11.8 [place] [address] [address] Mar, Bipolar disorder, in partial remission, most recent episode manic F31.73 ; Non compliance with medical treatment Z91.19 ; 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 and Extreme poverty Z59.5 [place] [address] [address] Mar, Bipolar disorder, current episode mixed, unspecified F31.60 ; 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 ; Extreme poverty Z59.5 and Generalized anxiety disorder F41.1 [place] [address] [address] Mar, Bipolar disorder, in partial remission, most recent episode manic F31.73 ; 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 and Extreme poverty Z59.5 [place] [address] [address] Feb, Bipolar disorder, in partial remission, most recent episode manic F31.73 ; 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 and Extreme poverty Z59.5 [place] [address] [address] Feb, Bipolar disorder, in partial remission, most recent episode manic F31.73 ; 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 and Extreme poverty Z59.5 [place] [address] [address] Feb, [place] [address] [address] Jan, Type 2 diabetes mellitus with complicati on E11.8 and Petechiae R23.3 [place] [address] [address] Jan, Type 2 diabetes mellitus with complicati on E11.8 ; Edema, unspecified R60.9 ; Petechiae R23.3 and Diabetes E11.9 [place] [address] [address] Jan, Bipolar disorder, in partial remission, most recent episode manic F31.73 ; 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 and Extreme poverty Z59.5 [place] [address] [address] Jan, Bipolar disorder, in partial remission, most recent episode manic F31.73 ; 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 and Extreme poverty Z59.5 [place] [address] [address] Dec, Bipolar disorder, in partial remission, most recent episode manic F31.73 [place] [address] [address] Dec, Edema, due to unspecified malnutrition t ype, unspecified edema R60.9 and Essential hypertension I10 [place] [address] [address] Dec, Bipolar disorder, in partial remission, most recent episode manic F31.73 [place] [address] [address] Nov, Bipolar I disorder, most recent episode (or current) mixed, unspecified 296.60 [facility] [address] [place] [id number] [place] [address] Nov, Stress incontinence, female 625.6 ; Back pain 724.5 and Leg pain 729.5 [facility] [address] [place] [id number] [place] [address] Nov, Generalized anxiety disorder 300.02 and Bipolar II disorder 296.89 [facility] [address] [address] Nov, Bipolar I disorder, most recent episode (or current) mixed, unspecified 296.60 [facility] [address] [address] Oct, [facility] [address] [address] Oct, [facility] [address] [address] Oct, [facility] [address] [address] Oct, Bipolar I disorder, most recent episode (or current) mixed, unspecified 296.60 [facility] [id number] [place] [address] Sep, Diabetes 250.00 [facility] [address] [address] Sep, Bipolar I disorder, most recent episode (or current) mixed, unspecified 296.60 [facility] [id number] [place] [address] Sep, [facility] [address] [address] Sep, [facility] [address] [id number] [place] [address] Sep, Bipolar I disorder, most recent episode (or current) mixed, unspecified 296.60 [facility] [address] [address] Sep, Bipolar I disorder, most recent episode (or current) mixed, unspecified 296.60 [facility] [address] [address] Sep, [facility] [address] [address] Sep, Anxiety 300.00 ; Diabetes 250.00 and Hyp erlipidemia 272.4 [facility] [address] [address] Aug, [facility] [address] [address] Aug, [facility] [address] [address] Aug, [facility] [address] [address] Aug, Bipolar I disorder, most recent episode (or current) mixed, unspecified 296.60 [facility] [address] [address] Aug, Generalized anxiety disorder 300.02 and Bipolar II disorder 296.89 [facility] [address] [address] July, Bipolar I disorder, most recent episode (or current) mixed, unspecified 296.60 [facility] [address] [address] July, Cough 786.2 [facility] [address] [place] [address] July, Bipolar I disorder, most recent episode (or current) mixed, unspecified 296.60 [facility] [address] [address] Jun, Diabetes 250.00 [facility] [address] [address] Jun, [facility] [address] [place] [address] [place] [address] 13 Jun, 2014 [facility] [place] [facility] [address] [facility] [id number] [place] [address] May, [facility] [place] [facility] [address] [id number] [place] [address] May, [facility] [place] [facility] [address] [id number] [place] [address] May, [facility] [place] [facility] [address] [id number] [place] [address] May, [facility] [place] [facility] [address] [id number] [place] [address] May, [facility] [place] [facility] [address] [id number] [place] [address] May, [facility] [place] [facility] [address] [id number] [place] [address] Apr, [facility] [place] [facility] [address] [id number] [place] [address] Apr, [facility] [place] [facility] [address] [id number] [place] [address] Apr, [facility] [place] [facility] [address] [id number] [place] [address] Apr, [facility] [place] [facility] [address] [id number] [place] [address] Apr, [facility] [place] [facility] [address] [id number] [place] [address] Apr, [facility] [place] [facility] [address] [id number] [place] [address] Apr, [facility] [place] [facility] [address] [id number] [place] [address] Apr, [facility] [place] [facility] [address] [id number] [place] [address] Mar, [facility] [place] [facility] [address] [id number] [place] [address] Mar, [facility] [place] [facility] [address] [facility] [id number] [place] [address] Mar, [facility] [place] [facility] [address] [facility] [id number] [place] [address] Mar, [facility] [place] [facility] [address] [id number] [place] [address] Mar, [facility] [place] [facility] [address] [id number] [place] [address] Mar, [facility] [place] [facility] [address] [facility] [id number] [place] [address] Mar, [facility] [place] [facility] [address] [id number] [place] [address] Mar, [facility] [place] [facility] [address] [id number] [place] [address] Feb, [facility] [place] [facility] [address] [id number] [place] [address] Feb, [facility] [place] [facility] [address] [id number] [place] [address] Feb, [facility] [place] [facility] [address] [id number] [place] [address] Feb, [facility] [place] [facility] [address] [id number] [place] [address] Feb, [facility] [place] [facility] [address] [id number] [place] [address] Feb, [facility] [place] [facility] [address] [facility] [id number] [place] [address] Feb, [facility] [place] [facility] [address] [id number] [place] [address] Feb, [facility] [place] [facility] [address] [id number] [place] [address] Feb, [facility] [place] [facility] [address] [id number] [place] [address] Feb, [facility] [place] [facility] [address] [id number] [place] [address] Jan, [facility] [place] [facility] [address] [id number] [place] [address] Jan, [facility] [place] [facility] [address] [id number] [place] [address] Jan, [facility] [place] [facility] [address] [id number] [place] [address] Jan, [facility] [place] [facility] [address] [id number] [place] [address] Jan, [facility] [place] [facility] [address] [id number] [place] [address] Jan, [facility] [place] [facility] [address] [id number] [place] [address] Jan, [facility] [place] [facility] [address] [id number] [place] [address] Jan, [facility] [place] [facility] [address] [id number] [place] [address] Jan, [facility] [place] [facility] [address] [id number] [place] [address] Jan, [facility] [place] [facility] [address] [id number] [place] [address] Jan, [facility] [place] [facility] [address] [id number] [place] [address] Jan, [facility] [place] [facility] [address] [id number] [place] [address] Jan, [facility] [place] [facility] [address] [id number] [place] [address] Jan, [facility] [place] [facility] [address] [place] [id number] [place] [address] Jan, [facility] [place] [facility] [address] [id number] [place] [address] Dec, [facility] [place] [facility] [address] [id number] [place] [address] Dec, [facility] [place] [facility] [address] [id number] [place] [address] 16 Dec, 2013 [facility] [place] [facility] [address] [id number] [place] [address] 16 Dec, 2013 [facility] [place] [facility] [address] [id number] [place] [address] 09 Dec, 2013 [facility] [place] [facility] [address] [id number] [place] [address] 09 Dec, 2013 [facility] [place] [facility] [address] [id number] [place] [address] Dec, 2013 [facility] [place] [facility] [address] [id number] [place] [address] 07 Dec, 2013 [facility] [place] [facility] [address] [id number] [place] [address] 25 Sep, 2013 [facility] [place] [facility] [address] [id number] [place] [address] 25 Sep, 2013 [facility] [place] [facility] [address] [id number] [place] [address] 10 Sep, 2013 [facility] [place] [facility] [address] [id number] [place] [address] 10 Sep, 2013 [facility] [place] [facility] [address] [id number] [place] [address] 08 Sep, 2013 [facility] [place] [facility] [address] [id number] [place] [address] 08 Sep, 2013 [facility] [place] [facility] [address] [id number] [place] [address] 08 Sep, 2013 [facility] [place] [facility] [address] [id number] [place] [address] 08 Sep, 2013 [facility] [place] [facility] [address] [id number] [place] [address] 08 Sep, 2013 [facility] [place] [facility] [address] [id number] [place] [address] 08 Sep, 2013 [facility] [place] [facility] [address] [id number] [place] [address] 04 Sep, 2013 [facility] [place] [facility] [address] [id number] [facility] [address] 04 Nov, 2013 [facility] [place] [facility] [address] [facility] [id number] [facility] [address] Nov, 2013 [facility] [place] [facility] [address] [facility] [id number] [facility] [address] Nov, 2013 [facility] [place] [facility] [address] [facility] [id number] [place] [address] Nov, 2013 [facility] [place] [facility] [address] [facility] [id number] [facility] [address] Oct, [facility] [place] [facility] [address] [facility] [id number] [place] [address] Oct, [facility] [place] [facility] [address] [id number] [place] [address] Oct, [facility] [place] [facility] [address] [id number] [facility] [address] Oct, [facility] [place] [facility] [address] [facility] [id number] [place] [address] Oct, [facility] [place] [facility] [address] [id number] [facility] [address] Oct, [facility] [place] [facility] [address] [facility] [id number] [place] [address] Oct, [facility] [place] [facility] [address] [id number] [place] [address] Oct, [facility] [place] [facility] [address] [facility] [id number] [place] [address] Oct, [facility] [place] [facility] [address] [id number] [place] [address] Oct, [facility] [place] [facility] [address] [facility] [id number] [place] [address] Oct, [facility] [place] [facility] [address] [id number] [place] [address] Oct, [facility] [place] [facility] [address] [facility] [id number] [place] [address] Oct, [facility] [place] [facility] [address] [id number] [place] [address] Oct, [facility] [place] [facility] [address] [facility] [id number] [place] [address] Sep, [facility] [place] [facility] [address] [id number] [place] [address] Sep, [facility] [place] [facility] [address] [facility] [id number] [place] [address] Sep, [facility] [place] [facility] [address] [facility] [id number] [place] [address] Sep, [facility] [place] [facility] [address] [id number] [place] [address] Sep, [facility] [place] [facility] [address] [id number] [place] [address] Sep, [facility] [place] [facility] [address] [id number] [place] [address] Sep, [facility] [place] [facility] [address] [id number] [place] [address] Sep, [facility] [place] [facility] [address] [id number] [place] [address] Aug, [facility] [place] [facility] [address] [id number] [place] [address] Aug, [facility] [place] [facility] [address] [id number] [place] [address] Aug, [facility] [place] [facility] [address] [facility] [id number] [place] [address] Aug, [facility] [place] [facility] [address] [id number] [place] [address] Aug, [facility] [place] [facility] [address] [id number] [place] [address] Aug, [facility] [place] [facility] [address] [id number] [place] [address] Aug, [facility] [place] [facility] [address] [id number] [place] [address] Aug, [facility] [place] [facility] [address] [id number] [place] [address] July, [facility] [place] [facility] [address] [id number] [place] [address] July, [facility] [place] [facility] [address] [id number] [place] [address] July, [facility] [place] [facility] [address] [id number] [place] [address] July, [facility] [place] [facility] [address] [id number] [place] [address] July, [facility] [place] [facility] [address] [id number] [place] [address] July, [facility] [place] [facility] [address] [id number] [place] [address] July, [facility] [place] [facility] [address] [id number] [place] [address] July, [facility] [place] [facility] [address] [id number] [place] [address] Jun, [facility] [place] [facility] [address] [id number] [place] [address] Jun, [facility] [place] [facility] [address] [id number] [place] [address] Jun, [facility] [place] [facility] [address] [id number] [place] [address] Jun, [facility] [place] [facility] [address] [id number] [place] [address] Jun, [facility] [place] [facility] [address] [id number] [place] [address] Jun, [facility] [place] [facility] [address] [id number] [place] [address] 15 Jun, 2013 [facility] [place] [facility] [address] [id number] [place] [address] 15 Jun, 2013 [facility] [place] [facility] [address] [facility] [id number] [facility] [address] Jun, [facility] [place] [facility] [address] [facility] [id number] [facility] [address] Jun, [facility] [place] [facility] [address] [facility] [id number] [facility] [address] Jun, [facility] [place] [facility] [address] [facility] [id number] [place] [address] Jun, [facility] [place] [facility] [address] [facility] [id number] [facility] [address] May, [facility] [place] [facility] [address] [facility] [id number] [place] [address] May, [facility] [place] [facility] [address] [id number] [place] [address] May, [facility] [place] [facility] [address] [id number] [facility] [address] May, [facility] [place] [facility] [address] [facility] [id number] [place] [address] May, [facility] [place] [facility] [address] [id number] [facility] [address] May, [facility] [place] [facility] [address] [id number] [place] [address] May, [facility] [place] [facility] [address] [id number] [place] [address] May, [facility] [place] [facility] [address] [facility] [place] [id number] [facility] [address] May, [facility] [place] [facility] [address] [facility] [place] [id number] [place] [address] May, [facility] [place] [facility] [address] [facility] [place] [id number] [place] [address] May, [facility] [place] [facility] [address] [id number] [place] [address] May, [facility] [place] [facility] [address] [id number] [place] [address] May, [facility] [place] [facility] [address] [facility] [place] [id number] [place] [address] May, [facility] [place] [facility] [address] [id number] [place] [address] Apr, [facility] [place] [facility] [address] [id number] [place] [address] Apr, [facility] [place] [facility] [address] [id number] [place] [address] Apr, [facility] [place] [facility] [address] [id number] [place] [address] Apr, [facility] [place] [facility] [address] [id number] [place] [address] Apr, [facility] [place] [facility] [address] [id number] [place] [address] Apr, [facility] [place] [facility] [address] [id number] [place] [address] Mar, [facility] [place] [facility] [address] [id number] [place] [address] Mar, [facility] [place] [facility] [address] [id number] [place] [address] Mar, [facility] [place] [facility] [address] [id number] [place] [address] Mar, [facility] [place] [facility] [address] [id number] [place] [address] Mar, [facility] [place] [facility] [address] [id number] [place] [address] Mar, [facility] [place] [facility] [address] [id number] [place] [address] Mar, [facility] [place] [facility] [address] [id number] [place] [address] Mar, [facility] [place] [facility] [address] [id number] [place] [address] Mar, [facility] [address] [id number] [place] [address] Mar, [facility] [place] [facility] [address] [id number] [place] [address] Mar, [facility] [place] [facility] [address] [id number] [place] [address] Mar, [facility] [place] [facility] [address] [id number] [place] [address] Mar, [facility] [place] [facility] [address] [id number] [place] [address] Mar, [facility] [place] [facility] [address] [id number] [place] [address] Feb, [facility] [place] [facility] [address] [id number] [place] [address] Feb, [facility] [place] [facility] [address] [id number] [place] [address] Feb, [facility] [place] [facility] [address] [id number] [place] [address] Feb, [facility] [place] [facility] [address] [id number] [place] [address] Feb, [facility] [place] [facility] [address] [id number] [place] [address] Feb, [facility] [place] [facility] [address] [id number] [place] [address] Feb, [facility] [place] [facility] [address] [id number] [place] [address] Feb, [facility] [place] [facility] [address] [id number] [place] [address] Feb, [facility] [place] [facility] [address] [id number] [place] [address] Feb, [facility] [place] [facility] [address] [id number] [place] [address] Feb, [facility] [place] [facility] [address] [id number] [place] [address] 09 Feb, 2012 [facility] [place] [facility] [address] [facility] [place] [id number] [place] [address] 05 Feb, 2012 [facility] [address] [facility] [id number] [place] [address] 05 Feb, 2012 [facility] [address] [id number] [place] [address] 05 Feb, 2012 [facility] [address] [id number] [place] [address] 05 Feb, 2012 [facility] [address] [facility] [id number] [place] [address] 24 Dec, 2012 [facility] [address] [id number] [place] [address] 24 Dec, 2012 [facility] [address] [id number] [place] [address] 16 Dec, 2012 [facility] [address] [id number] [place] [address] 16 Dec, 2012 [facility] [address] [id number] [place] [address] 16 Dec, 2012 [facility] [address] [id number] [place] [address] 16 Dec, 2012 [facility] [address] [id number] [place] [address] 14 Dec, 2012 [facility] [address] [id number] [place] [address] 14 Dec, 2012 [facility] [address] [facility] [id number] [place] [address] 10 Dec, 2012 [facility] [address] [id number] [place] [address] 10 Dec, 2012 [facility] [address] [id number] [place] [address] 10 Dec, 2012 [facility] [address] [id number] [place] [address] 10 Dec, 2012 [facility] [address] [facility] [id number] [facility] [address] Dec, [facility] [address] [id number] [facility] [address] 25 Nov, 2012 [facility] [address] [facility] [id number] [facility] [address] 20 Nov, 2012 [facility] [address] [id number] [place] [address] 18 Nov, 2012 [facility] [address] [facility] [id number] [facility] [address] 16 Nov, 2012 [facility] [address] [id number] [place] [address] 12 Nov, 2012 [facility] [address] [id number] [place] [address] 11 Nov, 2012 [facility] [address] [id number] [place] [address] 05 Nov, 2012 [facility] [address] [id number] [place] [address] 15 Oct, 2012 [facility] [address] [facility] [id number] [place] [address] Oct, [facility] [address] [id number] [place] [address] 24 Sep, 2012 [facility] [address] [id number] [place] [address] Sep, [facility] [address] [id number] [place] [address] Sep, [facility] [address] [facility] [id number] [place] [address] 17 Sep, 2012 [facility] [address] [id number] [place] [address] 15 Sep, 2012 [facility] [address] [id number] [place] [address] Sep, [facility] [address] [id number] [place] [address] Sep, [facility] [address] [facility] [id number] [place] [address] 25 Aug, 2012 [facility] [address] [id number] [place] [address] 18 Aug, 2012 [facility] [address] [id number] [place] [address] 16 Aug, 2012 [facility] [address] [id number] [place] [address] Aug, [facility] [address] [id number] [place] [address] Aug, [facility] [address] [id number] [place] [address] Aug, [facility] [address] [id number] [place] [address] Aug, [facility] [address] [id number] [place] [address] Aug, [facility] [address] [id number] [place] [address] July, [facility] [address] [id number] [place] [address] July, [facility] [address] [id number] [place] [address] July, [facility] [address] [facility] [id number] [place] [id number] July, [facility] [address] [id number] [place] [address] July, [facility] [address] [id number] [place] [address] Jun, [facility] [address] [id number] [place] [address] May, [facility] [address] [id number] [place] [address] 14 May, 2012 [facility] [address] [id number] [place] [address] May, [facility] [address] [id number] [place] [address] Apr, [facility] [address] [id number] [place] [address] Apr, [facility] [address] [id number] [place] [address] Apr, [facility] [address] [id number] [place] [address] Mar, [facility] [address] [id number] [place] [address] Mar, [facility] [address] [id number] [place] [address] Mar, [facility] [address] [id number] [place] [address] Mar, [facility] [address] [id number] [place] [address] Mar, [facility] [address] [id number] [place] [address] Mar, [facility] [address] [id number] [place] [address] Mar, [facility] [address] [id number] [place] [address] Feb, [facility] [address] [id number] [place] [address] 31 Feb, 2012 [facility] [address] [id number] [place] [address] Feb, [facility] [address] [id number] [place] [address] 18 Feb, 2012 [facility] [address] [id number] [place] [address] Feb, [facility] [address] [id number] [place] [address] Feb, [facility] [address] [id number] [place] [address] Feb, [facility] [address] [id number] [place] [address] Feb, [facility] [address] [id number] [place] [address] Jan, [facility] [address] [id number] [place] [address] Jan, [facility] [address] [id number] [place] [address] Jan, [facility] [address] [id number] [place] [address] Jan, [facility] [address] [id number] [place] [address] Jan, [facility] [address] [id number] [place] [address] Jan, [facility] [address] [id number] [place] [address] Jan, [facility] [address] [id number] [place] [address] Jan, [facility] [address] [id number] [place] [address] Jan, [facility] [address] [id number] [place] [address] Jan, [facility] [address] [id number] [place] [address] Jan, [facility] [address] [id number] [place] [address] Jan, [facility] [address] [id number] [place] [address] Jan, [facility] [address] [id number] [place] [address] Jan, [facility] [address] [id number] [place] [address] Jan, [facility] [address] [id number] [place] [address] Jan, [facility] [address] [id number] [place] [address] Dec, [facility] [address] [id number] [place] [address] Dec, [facility] [address] [id number] [place] [address] Dec, [facility] [address] [facility] [id number] [place] [address] Dec, [facility] [address] [id number] [place] [address] Dec, [facility] [address] [id number] [place] [address] Dec, [facility] [address] [id number] [place] [address] Dec, [facility] [address] [id number] [place] [address] Dec, [facility] [address] [id number] [place] [address] 08 Dec, 2011 [facility] [address] [id number] [place] [address] 05 Dec, 2011 [facility] [address] [id number] [place] [address] 18 Nov, 2011 [facility] [address] [id number] [place] [address] 13 Nov, 2011 [facility] [address] [id number] [place] [address] 24 Oct, 2011 [facility] [address] [id number] [place] [address] Oct, [facility] [address] [id number] [place] [address] Oct, [facility] [address] [id number] [facility] [address] Oct, [facility] [address] [facility] [id number] [facility] [address] Oct, [facility] [address] [id number] [place] [address] Oct, [facility] [address] [id number] [place] [address] Oct, [facility] [address] [id number] [place] [address] Sep, [facility] [address] [id number] [facility] [address] Aug, [facility] [address] [id number] [place] [address] Aug, [facility] [address] [id number] [place] [address] Aug, [facility] [address] [id number] [place] [address] Aug, [facility] [address] [id number] [place] [address] Aug, [facility] [address] [id number] [place] [address] July, [facility] [address] [id number] [place] [address] July, [facility] [address] [id number] [place] [address] July, [facility] [address] [id number] [place] [address] Jun, [facility] [address] [id number] [place] [address] Jun, [facility] [address] [id number] [place] [address] Jun, [facility] [address] [id number] [place] [address] Jun, [facility] [address] [id number] [facility] [address] 30 May, 2011 [facility] [address] [id number] [place] [address] 30 May, 2011 [facility] [address] [id number] [place] [address] 29 May, 2011 [facility] [address] [id number] [place] [address] 28 May, 2011 [facility] [address] [id number] [place] [address] 23 May, 2011 [facility] [address] [id number] [place] [address] 22 May, 2011 [facility] [address] [id number] [place] [address] 21 May, 2011 [facility] [address] [id number] [place] [address] 19 May, 2011 [facility] [address] [id number] [place] [address] 08 May, 2011 [facility] [address] [id number] [place] [address] 05 May, 2011 [facility] [address] [id number] [place] [address] 02 May, 2011 [facility] [address] [id number] [place] [address] May, [facility] [address] [id number] [place] [address] Mar, [facility] [address] [id number] [place] [address] Mar, [facility] [address] [id number] [place] [address] Feb, [facility] [address] [id number] [place] [address] Feb, [facility] [address] [id number] [place] [address] Feb, [facility] [address] [id number] [place] [address] 15 Feb, 2011 [facility] [address] [id number] [place] [address] Feb, [facility] [address] [id number] [place] [address] Feb, [facility] [address] [id number] [place] [address] Feb, [facility] [address] [id number] [place] [address] Jan, [facility] [address] [id number] [place] [address] Jan, [facility] [address] [id number] [place] [address] Jan, [facility] [address] [id number] [place] [address] Jan, [facility] [address] [id number] [place] [address] Jan, [facility] [address] [id number] [place] [address] Jan, [facility] [address] [id number] [place] [address] Dec, [facility] [address] [id number] [place] [address] Dec, [facility] [address] [id number] [place] [address] Dec, [facility] [address] [id number] [place] [address] July, [facility] [address] [id number] [place] [address] July, [facility] [address] [id number] [place] [address] 08 Feb, 2010 [facility] [address] [id number] [place] [address] Jan, [facility] [address] [facility] [id number] [place] [address] Dec, [facility] [address] [id number] [place] [address] Dec, [facility] [address] [id number] [place] [address] 15 Sep, 2009 [facility] [address] [id number] [place] [address] Aug, [facility] [address] [id number] [place] [address] Jun, [facility] [address] [id number] [place] [address] Jun, [facility] [address] [id number] [place] [address] Jan, [facility] [address] [id number] [place] [address] Jan, [facility] [address] [id number] [place] [address] Jan, [facility] [address] [id number] [place] [address] Jan, [facility] [address] [id number] [place] [address] Dec, [facility] [address] [id number] [place] [address] Dec, [facility] [address] [id number] [place] [address] 15 Dec, 2008 [facility] [address] [id number] [place] [address] Nov, [facility] [address] [id number] [place] [address] July, [facility] [address] [id number] [place] [address] May, [facility] [address] [facility] [id number] [place] [address] 10 Apr, 2008 [facility] [address] [id number] [place] [address] Feb, [facility] [address] [id number] [place] [address] Dec, IMMUNIZATIONS No Known Immunizations SOCIAL HISTORY Never Assessed REASON FOR VISIT PLAN OF CARE VITAL SIGNS Blood pressure systolic 128 mmHg 2013-08-17 Blood pressure diastolic 76 mmHg 2013-08-17 MEDICATIONS Unknown Medications RESULTS No Results PROCEDURES Procedure Date Ordered Result Body Site MRI LOWER EXTREMITY W/O DYE August 17, 2013 INSTRUCTIONS MEDICATIONS ADMINISTERED No Known [...]
--- OUTSIDE RECORDS SUMMARY | 2019-06-22 19:46 | XMS REPORT ---
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 Active 19009791 Problem Irritable bowel syndrome with diarrhea K58.0 Active 875539987 Problem Diabetes E11.9 Active 876319363 Problem Bipolar 1 disorder F31.9 Active 3 08116599 Problem Lumbar radiculopathy M54.16 Active 119204138 Problem Hyperlipidemia, unspecified E78.5 Ac tive 86388398 Problem Acute bilateral low back pain with right-sided sciatica M54.41 Active 201521655 Problem New daily persistent headache G44.52 Active 046014833 Problem Insulin long-term use Z79.4 Active 345908052 Problem Type 2 diabetes mellitus with complication E11.8 Active 231116940 Problem Post laminectomy syndrome M96.1 Acti ve 41094721 Problem Rhinosinusitis J32.9 Active 51160 000 Problem USP current 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 Z79.891 Active 363663079 Problem Eye exam normal Z01.00 Active 2438 32225 Problem Type 2 diabetes mellitus with hyperglycemia E11.65 Active 87104253 Problem Lumbago with sciatica, left side M54.42 Active 980764355 Problem Other chronic pain G89.29 Active 8 3313835 Problem Hypertriglyceridemia E78.1 Active 341220065 ALLERGIES No Information ENCOUNTERS Encounter Location Date Diagnosis [facility] [id number] [place] [address] May, [facility] [id number] [place] [address] Apr, [facility] [address] [address] Apr, [facility] [id number] [place] [address] Mar, [facility] [address] [address] Mar, Bipolar 1 disorder F31.9 ; Borderline in tellectual functioning R41.83 and Extreme poverty Z59.5 [facility] [address] [address] Mar, Exercise counseling Z71.82 [place] [address] [address] Mar, 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 [id number] [place] [address] Mar, [facility] [address] [address] Mar, Exercise counseling Z71.82 [place] [id number] [place] [address] Feb, Bipolar 1 disorder F31.9 ; Borderline in tellectual functioning R41.83 and Extreme poverty Z59.5 [facility] [id number] [place] [address] Feb, [facility] [address] [address] Feb, Type 2 diabetes mellitus with complicati on E11.8 [facility] [address] [facility] [id number] [place] [address] Feb, Acute low back pain without sciatica, unspecified back pain laterality M54.5 [facility] [address] [address] Feb, Bipolar 1 disorder F31.9 ; Borderline in tellectual functioning R41.83 and Extreme poverty Z59.5 [facility] [address] [address] Jan, Bipolar 1 disorder F31.9 ; Borderline in tellectual functioning R41.83 and Extreme poverty Z59.5 [facility] [address] [address] Jan, [facility] [address] [address] Jan, Type 2 diabetes mellitus with complicati on E11.8 [place] [address] [address] Jan, Type 2 diabetes mellitus with complicati on E11.8 ; Dysuria R30.0 and Diarrhea, unspecified type R19.7 [facility] [address] [address] Jan, Bipolar 1 disorder F31.9 ; Borderline in tellectual functioning R41.83 and Extreme poverty Z59.5 [facility] [address] [address] Dec, [facility] [address] [address] Dec, [facility] [address] [address] Dec, [facility] [address] [address] Dec, [facility] [address] [address] Dec, Rhinosinusitis J32.9 [facility] [address] [address] Dec, [place] [address] [address] Dec, Bipolar 1 disorder F31.9 ; Borderline in tellectual functioning R41.83 and Extreme poverty Z59.5 [place] [address] [address] Dec, Type 2 diabetes mellitus with complicati on E11.8 and Type 2 diabetes mellitus with hyperglycemia E11.65 [place] [address] [address] Dec, [place] [address] [address] Dec, Type 2 diabetes mellitus with complicati on E11.8 ; Insulin long-term use Z79.4 ; Hyperglycemia R73.9 and Yeast infection B37.9 [place] [address] [address] Dec, Encounter for immunization Z23 [place] [address] [address] Nov, [place] [address] [address] Nov, Bipolar 1 disorder F31.9 ; Borderline in tellectual functioning R41.83 and Extreme poverty Z59.5 [place] [address] [address] Nov, [place] [address] [address] Nov, [place] [address] [address] Nov, Borderline intellectual functioning R41. 83 and Bipolar disorder, in partial remission, most recent episode manic F31.73 [facility] [address] [facility] [id number] [place] [address] Nov, Epigastric abdominal pain R1 0.13 [place] [address] [address] Nov, Bipolar 1 disorder F31.9 ; Borderline in tellectual functioning R41.83 and Extreme poverty Z59.5 [facility] [address] [place] [address] Oct, Dysuria R30.0 and Acute cyst itis without hematuria N30.00 [facility] [id number] [address] Oct, [facility] [address] [address] Oct, [facility] [address] [address] Oct, Bipolar 1 disorder F31.9 ; Borderline in tellectual functioning R41.83 and Extreme poverty Z59.5 [place] [address] [address] Oct, [facility] [address] [address] Oct, 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 [address] [address] Oct, Diarrhea, unspecified type R19.7 [facility] [address] [id number] [place] [id number] Sep, Dental examination Z01.20 and Dental car ies K02.9 [facility] [address] [place] [id number] [place] [address] Sep, Mouth pain K13.79 [facility] [address] [address] Sep, [facility] [address] [address] Sep, Bipolar 1 disorder F31.9 ; Borderline in tellectual functioning R41.83 and Extreme poverty Z59.5 [place] [address] [address] Sep, [facility] [address] [address] Sep, [place] [address] [address] Sep, Diabetes E11.9 ; Hyperglycemia R73.9 ; L eliseo term current use of insulin Z79.4 and Diarrhea, unspecified type R19.7 [place] [address] [address] Sep, [place] [address] [address] Sep, Bipolar 1 disorder F31.9 ; Borderline in tellectual functioning R41.83 and Extreme poverty Z59.5 [place] [address] [address] Sep, [place] [address] [address] Sep, [place] [address] [address] Aug, Bipolar 1 disorder F31.9 ; Borderline in tellectual functioning R41.83 and Extreme poverty Z59.5 [place] [address] [address] Aug, Exercise counseling Z71.82 [place] [address] [address] Aug, Bipolar 1 disorder F31.9 ; Borderline in tellectual functioning R41.83 and Extreme poverty Z59.5 [place] [address] [address] Aug, Borderline intellectual functioning R41. 83 and Bipolar disorder, in partial remission, most recent episode manic F31.73 [facility] [address] [address] Aug, Low back pain M54.5 [facility] [address] [address] Aug, Borderline intellectual functioning R41. 83 and Bipolar disorder, in partial remission, most recent episode manic F31.73 [facility] [address] [address] July, Acute superficial gastritis without hemo rrhage K29.00 ; Low back pain M54.5 and Other chronic pain G89.29 [place] [address] [address] July, [place] [address] [address] July, [facility] [address] [address] Jun, [facility] [address] [facility] [id number] [address] [place] [address] Jun, Bilateral lower extremity ed epi R60.0 [facility] [address] [address] Jun, Borderline intellectual functioning R41. 83 and Bipolar disorder, in partial remission, most recent episode manic F31.73 [facility] [address] [address] Jun, [facility] [address] [address] May, Bronchitis J40 [facility] [address] [address] May, Screening for breast cancer Z12.31 and E ncounter for immunization Z23 [place] [address] [address] May, Bipolar 1 disorder F31.9 ; Borderline in tellectual functioning R41.83 and Extreme poverty Z59.5 [place] [address] [address] 11 Apr, 2018 [place] [address] [address] 07 Apr, 2018 Bipolar 1 disorder F31.9 ; Borderline in tellectual functioning R41.83 and Extreme poverty Z59.5 [place] [address] [address] 05 Apr, 2018 Irritable bowel syndrome with diarrhea K 58.0 and Dental abscess K04.7 [place] [address] [address] Mar, [place] [address] [address] Mar, [place] [address] [address] Mar, Bipolar 1 disorder F31.9 ; Borderline in tellectual functioning R41.83 and Extreme poverty Z59.5 [place] [address] [address] Mar, Hypertriglyceridemia E78.1 [place] [address] [address] Mar, Borderline intellectual functioning R41. 83 and Bipolar disorder, in partial remission, most recent episode manic F31.73 [place] [address] [address] Mar, Bipolar 1 disorder F31.9 ; Borderline in tellectual functioning R41.83 and Extreme poverty Z59.5 [place] [address] [address] 28 Feb, 2018 Generalized abdominal pain R10.84 and Di arrhea, unspecified type R19.7 [place] [address] [address] Feb, [place] [address] [address] Feb, Myalgia M79.10 and Nausea R11.0 [place] [address] [address] Feb, Bipolar 1 disorder F31.9 ; Borderline in tellectual functioning R41.83 and Extreme poverty Z59.5 [place] [address] [address] Feb, [place] [address] [address] Feb, Diabetes E11.9 ; Hyperglycemia R73.9 and Diarrhea, unspecified R19.7 [place] [address] [address] Feb, Diarrhea, unspecified type R19.7 ; Abdom inal pain R10.9 and Encounter for immunization Z23 [place] [address] [address] Jan, Bipolar 1 disorder F31.9 ; Borderline in tellectual functioning R41.83 and Extreme poverty Z59.5 [place] [address] [address] Dec, Bipolar 1 disorder F31.9 ; Borderline in tellectual functioning R41.83 and Extreme poverty Z59.5 [place] [address] [address] Nov, [place] [address] [address] Nov, Hypertriglyceridemia E78.[address] [address] Nov, Bipolar 1 disorder F31.9 ; Borderline in tellectual functioning R41.83 and Extreme poverty Z59.5 [place] [address] [address] Nov, Type 2 diabetes mellitus with complicati on E11.8 [place] [address] [address] 18 Nov, 2017 Borderline intellectual functioning R41. 83 and Bipolar disorder, in partial remission, most recent episode manic F31.73 [place] [address] [address] 12 Nov, 2017 Type 2 diabetes mellitus with complicati on E11.8 [place] [address] [address] 11 Nov, 2017 Bipolar 1 disorder F31.9 ; Borderline in tellectual functioning R41.83 and Extreme poverty Z59.5 [place] [address] [address] Nov, Type 2 diabetes mellitus with complicati on E11.8 ; Pain of left upper arm M79.622 ; Pain in right upper arm M79.621 ; Hyperglycemia R73.9 ; Lumbago with sciatica, left side M54.42 and Other chronic pain G89.29 [place] [address] [address] Oct, Bipolar 1 disorder F31.9 ; Borderline in tellectual functioning R41.83 and Extreme poverty Z59.5 [place] [address] [address] Oct, Type 2 diabetes mellitus with hyperglyce didi E11.65 ; USP current use of insulin Z79.4 and Other acute gastritis without hemorrhage K29.00 [place] [address] [address] Oct, Bipolar 1 disorder F31.9 ; Borderline in tellectual functioning R41.83 and Extreme poverty Z59.5 [place] [address] [address] Sep, Diarrhea, unspecified R19.7 and Vomiting , unspecified R11.10 [place] [address] [address] Aug, Type 2 diabetes mellitus with complicati on E11.8 [facility] [address] [address] Aug, [facility] [address] [address] Aug, Bipolar 1 disorder F31.9 ; Borderline in tellectual functioning R41.83 and Extreme poverty Z59.5 [place] [address] [address] Aug, Borderline intellectual functioning R41. 83 and Bipolar disorder, in partial remission, most recent episode manic F31.73 [place] [address] [address] Aug, Bipolar 1 disorder F31.9 [place] [address] [address] Aug, [place] [address] [address] Aug, [place] [address] [address] Aug, Bipolar 1 disorder F31.9 ; Borderline in tellectual functioning R41.83 and Extreme poverty Z59.5 [place] [address] [address] July, Type 2 diabetes mellitus with complicati on E11.8 [place] [address] [address] July, Bipolar 1 disorder F31.9 ; Borderline in tellectual functioning R41.83 and Extreme poverty Z59.5 [place] [address] [address] Jun, Bipolar 1 disorder F31.9 ; Borderline in tellectual functioning R41.83 and Extreme poverty Z59.5 [place] [address] [address] Jun, Bipolar 1 disorder F31.9 ; Borderline in tellectual functioning R41.83 and Extreme poverty Z59.5 [place] [address] [address] Jun, Bipolar 1 disorder F31.9 ; Borderline in tellectual functioning R41.83 and Extreme poverty Z59.5 [place] [address] [address] May, Urinary tract infection without hematuri a, site unspecified N39.0 [place] [address] [address] May, Bipolar 1 disorder F31.9 ; Borderline in tellectual functioning R41.83 and Extreme poverty Z59.5 [place] [address] [address] Apr, Diabetes E11.9 and Breast cancer screeni ng Z12.31 [place] [address] [address] Apr, Bipolar 1 disorder F31.9 and 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 [place] [address] [address] Mar, Bipolar 1 disorder F31.9 ; Borderline in tellectual functioning R41.83 and Extreme poverty Z59.5 [place] [address] [address] Mar, New daily persistent headache G44.52 ; L eg pain 729.5 and History of carpal tunnel release Z98.890 [place] [address] [address] Mar, Hyperlipidemia, unspecified E78.5 [place] [address] [address] Mar, Bipolar 1 disorder F31.9 ; Borderline in tellectual functioning R41.83 and Extreme poverty Z59.5 [place] [address] [address] Feb, Bipolar 1 disorder F31.9 ; Borderline in tellectual functioning R41.83 and Extreme poverty Z59.5 [place] [address] [address] Feb, Diabetes E11.9 [place] [address] [address] Feb, Viral syndrome B34.9 [place] [address] [address] Jan, Other viral agents as the cause of disea ses classified elsewhere B97.89 and Acute upper respiratory infection, unspecified J06.9 [place] [address] [address] Jan, Bipolar 1 disorder F31.9 and 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 [place] [address] [address] Jan, Bipolar 1 disorder F31.9 ; Borderline in tellectual functioning R41.83 and Extreme poverty Z59.5 [place] [address] [address] Dec, Diabetes E11.9 [place] [address] [address] Dec, Diabetes E11.9 and Encounter for immuniz ation Z23 [place] [address] [address] Dec, Bipolar 1 disorder F31.9 ; Borderline in tellectual functioning R41.83 and Extreme poverty Z59.5 [place] [address] [address] Dec, Back pain M54.9 [place] [address] [address] Nov, [place] [address] [address] Nov, Bipolar 1 disorder F31.9 ; Borderline in tellectual functioning R41.83 and Extreme poverty Z59.5 [place] [address] [address] Nov, Bipolar 1 disorder F31.9 ; Borderline in tellectual functioning R41.83 and Extreme poverty Z59.5 [place] [address] [address] Oct, Borderline intellectual functioning R41. 83 and Bipolar 1 disorder F31.9 [place] [address] [address] Oct, Bipolar 1 disorder F31.9 ; Borderline in tellectual functioning R41.83 and Extreme poverty Z59.5 [place] [address] [address] Oct, Back pain M54.9 [place] [address] [address] Oct, Borderline intellectual functioning R41. 83 and Type 2 diabetes mellitus with complication E11.8 [place] [address] [address] Sep, Bipolar 1 disorder F31.9 ; Borderline in tellectual functioning R41.83 and Extreme poverty Z59.5 [place] [address] [address] Sep, Borderline intellectual functioning R41. 83 and Bipolar 1 disorder F31.9 [place] [address] [address] Sep, Bipolar 1 disorder F31.9 ; Borderline in tellectual functioning R41.83 and Extreme poverty Z59.5 [place] [address] [address] Aug, Diabetes E11.9 ; Hyperlipidemia, unspeci fied E78.5 and Lumbar radiculopathy M54.16 [place] [address] [address] Aug, Bipolar 1 disorder F31.9 ; Borderline in tellectual functioning R41.83 and Extreme poverty Z59.5 [facility] [id number] [place] [address] Aug, [facility] [id number] [place] [address] Aug, [facility] [id number] [place] [address] Aug, [facility] [id number] [place] [address] July, [facility] [id number] [place] [address] July, Acute bilateral low back pain with right -sided sciatica M54.41 [place] [id number] [place] [address] July, Bipolar 1 disorder F31.9 ; Borderline in tellectual functioning R41.83 and Extreme poverty Z59.5 [place] [id number] [place] [address] July, Back pain M54.9 and Diabetes E11.9 [place] [id number] [place] [address] Jun, Bipolar 1 disorder F31.9 ; Borderline in tellectual functioning R41.83 and Extreme poverty Z59.5 [place] [id number] [place] [address] Jun, Bipolar 1 disorder F31.9 ; Borderline in tellectual functioning R41.83 and Extreme poverty Z59.5 [place] [id number] [place] [address] May, Visit for pelvic exam Z01.419 ; Acute va ginitis N76.0 and Diabetes E11.9 [facility] [id number] [place] [address] May, Bipolar 1 disorder F31.9 ; Borderline in tellectual functioning R41.83 and Extreme poverty Z59.5 [place] [address] [address] 08 May, 2016 [facility] [address] [address] May, [place] [address] [address] May, Bipolar 1 disorder F31.9 ; Borderline in tellectual functioning R41.83 and Extreme poverty Z59.5 [place] [address] [address] May, Hyperlipidemia, unspecified E78.5 [place] [address] [address] Apr, Breast cancer screening Z12.39 [place] [address] [address] Mar, [place] [address] [address] Mar, Bipolar disorder, current episode mixed, unspecified F31.60 [place] [address] [address] Mar, Bipolar 1 disorder F31.9 ; Borderline in tellectual functioning R41.83 and Extreme poverty Z59.5 [place] [address] [address] Feb, Acute nasopharyngitis J00 [place] [address] [address] Feb, Dental examination Z01.20 [place] [address] [address] Feb, Dental cavities K02.9 and Chronic period ontitis, unspecified K05.30 [place] [address] [address] Feb, Low back pain M54.5 and Extreme poverty Z59.5 [place] [address] [address] Feb, [place] [address] [address] 05 Feb, 2016 Routine gynecological examination V72.31 ; Breast cancer screening Z12.39 and Herpes simplex type [address] [address] 02 Feb, 2016 Diabetes E11.9 [place] [address] Feb, Encounter for dental examination and leti aning without abnormal findings Z01.[address] [address] Jan, Hyperlipidemia, unspecified E78.[address] [address] Jan, Bipolar 1 disorder F31.9 ; Borderline in tellectual functioning R41.83 and Extreme poverty Z59.[address] [address] 18 Jan, 2016 Diabetes E11.9 [address] [address] [address] 17 Jan, 2016 Diabetes E11.[address] [address] 14 Dec, 2015 Bipolar 1 disorder F31.9 ; Borderline in tellectual functioning R41.83 and Extreme poverty Z59.[address] [address] 13 Dec, 2015 Bipolar disorder, current episode mixed, unspecified F31.60 and Borderline intellectual functioning R41.[address] [address] 16 Nov, 2015 Bipolar 1 disorder F31.9 ; Borderline in tellectual functioning R41.83 ; Extreme poverty Z59.5 and Non compliance with medical treatment Z91.[address] [address] Oct, [place] [address] [address] Oct, Dental caries K02.9 [place] [address] [address] Oct, Low back pain M54.5 and Other chronic pa in G89.29 [place] [address] [address] Oct, Bipolar 1 disorder F31.9 ; Borderline in tellectual functioning R41.83 ; Extreme poverty Z59.5 and Non compliance with medical treatment Z91.19 [place] [address] [address] Oct, [place] [address] [address] Oct, [place] [address] [address] Oct, Dental examination Z01.20 [place] [address] [address] Oct, Bipolar 1 disorder F31.9 ; Borderline in tellectual functioning R41.83 ; Extreme poverty Z59.5 and Non compliance with medical treatment Z91.19 [place] [address] [address] Oct, [place] [address] [address] Sep, Type 2 diabetes mellitus with complicati on E11.8 [place] [address] [address] Sep, Bipolar disorder, current episode mixed, unspecified F31.60 [place] [address] [address] Sep, Bipolar disorder, current episode mixed, unspecified F31.60 [place] [address] [address] Sep, Bipolar disorder, in partial remission, most recent episode manic F31.73 ; 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 ; Extreme poverty Z59.5 and Non compliance with medical treatment Z91.19 [place] [address] [address] Aug, Bipolar disorder, in partial remission, most recent episode manic F31.73 ; 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 ; Extreme poverty Z59.5 and Non compliance with medical treatment Z91.19 [place] [address] [address] Aug, Bipolar disorder, in partial remission, most recent episode manic F31.73 ; 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 ; Extreme poverty Z59.5 and Non compliance with medical treatment Z91.19 [place] [address] [address] Aug, [place] [address] [address] July, Bipolar disorder, in partial remission, most recent episode manic F31.73 ; 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 ; Extreme poverty Z59.5 and Non compliance with medical treatment Z91.19 [place] [address] [address] July, Bipolar disorder, current episode mixed, unspecified F31.60 [place] [address] [address] July, Bipolar disorder, in partial remission, most recent episode manic F31.73 ; 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 and Non compliance with medical treatment Z91.19 [place] [address] [address] May, Bipolar disorder, in partial remission, most recent episode manic F31.73 [place] [address] [address] May, Diabetes E11.9 and Chronic pain G89.29 [place] [address] [address] May, [place] [address] [address] May, Bipolar disorder, in partial remission, most recent episode manic F31.73 ; Non compliance with medical treatment Z91.19 and 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 [place] [address] [address] May, Type 2 diabetes mellitus with complicati on E11.8 and Back pain M54.9 [place] [address] [address] May, Bipolar disorder, in partial remission, most recent episode manic F31.73 and 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 [place] [address] [address] 24 Apr, 2015 [place] [address] [address] Apr, [place] [address] [address] 10 Apr, 2015 [place] [address] [address] 09 Apr, 2015 Diabetes E11.9 ; Irritable bowel syndrom e with diarrhea K58.0 and Lumbar radiculopathy M54.16 [place] [address] [address] 02 Apr, 2015 Breast screening Z12.39 [place] [address] [address] 02 Apr, 2015 Bipolar disorder, in partial remission, most recent episode manic F31.73 ; Non compliance with medical treatment Z91.19 and 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 [place] [address] [address] Mar, Edema, unspecified type R60.9 and Type 2 diabetes mellitus with complication E11.8 [place] [address] [address] Mar, Bipolar disorder, in partial remission, most recent episode manic F31.73 ; Non compliance with medical treatment Z91.19 ; 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 and Extreme poverty Z59.5 [place] [address] [address] 14 Mar, 2015 Bipolar disorder, current episode mixed, unspecified F31.60 ; 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 ; Extreme poverty Z59.5 and Generalized anxiety disorder F41.1 [place] [address] [address] 12 Mar, 2015 Bipolar disorder, in partial remission, most recent episode manic F31.73 ; 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 and Extreme poverty Z59.5 [place] [address] [address] 14 Feb, 2015 Bipolar disorder, in partial remission, most recent episode manic F31.73 ; 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 and Extreme poverty Z59.5 [place] [address] [address] Feb, Bipolar disorder, in partial remission, most recent episode manic F31.73 ; 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 and Extreme poverty Z59.5 [place] [address] [address] Feb, [place] [address] [address] Jan, Type 2 diabetes mellitus with complicati on E11.8 and Petechiae R23.3 [place] [address] [address] Jan, Type 2 diabetes mellitus with complicati on E11.8 ; Edema, unspecified R60.9 ; Petechiae R23.3 and Diabetes E11.9 [place] [address] [address] Jan, Bipolar disorder, in partial remission, most recent episode manic F31.73 ; 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 and Extreme poverty Z59.5 [place] [address] [address] Jan, Bipolar disorder, in partial remission, most recent episode manic F31.73 ; 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 [address] [address] Nov, Bipolar I disorder, most recent episode (or current) mixed, unspecified 296.60 [facility] [address] [address] Nov, Stress incontinence, female 625.6 ; Back pain 724.5 and Leg pain 729.5 [facility] [address] [address] Nov, Generalized anxiety disorder 300.02 and Bipolar II disorder 296.89 [facility] [address] [address] Nov, Bipolar I disorder, most recent episode (or current) mixed, unspecified 296.60 [facility] [address] [address] Oct, [facility] [address] [address] Oct, [facility] [address] [address] Oct, [facility] [address] [address] Oct, Bipolar I disorder, most recent episode (or current) mixed, unspecified 296.60 [facility] [address] [address] Sep, Diabetes 250.00 [facility] [address] [address] Sep, Bipolar I disorder, most recent episode (or current) mixed, unspecified 296.60 [facility] [address] [address] Sep, [facility] [address] [address] Sep, [facility] [address] [address] Sep, Bipolar I disorder, most recent episode (or current) mixed, unspecified 296.60 [facility] [address] [address] Sep, Bipolar I disorder, most recent episode (or current) mixed, unspecified 296.60 [facility] [address] [address] Sep, [facility] [address] [address] Sep, Anxiety 300.00 ; Diabetes 250.00 and Hyp erlipidemia 272.4 [facility] [address] [address] Aug, [facility] [address] [address] Aug, [facility] [address] [address] Aug, [facility] [address] [address] Aug, Bipolar I disorder, most recent episode (or current) mixed, unspecified 296.60 [facility] [address] [address] Aug, Generalized anxiety disorder 300.02 and Bipolar II disorder 296.89 [facility] [address] [address] July, Bipolar I disorder, most recent episode (or current) mixed, unspecified 296.60 [facility] [address] [address] July, Cough 786.2 [facility] [address] [address] July, Bipolar I disorder, most recent episode (or current) mixed, unspecified 296.60 [facility] [address] [address] 30 Jun, 2014 Diabetes 250.00 [facility] [place] [facility] [address] [id number] [place] [address] 14 Jun, 2014 [facility] [place] [facility] [address] [id number] [place] [address] 13 Jun, 2014 [facility] [place] [facility] [address] [id number] [place] [address] 24 May, 2014 [facility] [place] [facility] [address] [id number] [place] [address] 24 May, 2014 [facility] [place] [facility] [address] [id number] [place] [address] 10 May, 2014 [facility] [place] [facility] [address] [id number] [place] [address] 10 May, 2014 [facility] [place] [facility] [address] [id number] [place] [address] May, [facility] [place] [facility] [address] [id number] [place] [address] May, [facility] [place] [facility] [address] [id number] [place] [address] Apr, [facility] [place] [facility] [address] [id number] [place] [address] 20 Apr, 2014 [facility] [place] [facility] [address] [id number] [place] [address] 11 Apr, 2014 [facility] [place] [facility] [address] [id number] [place] [address] Apr, 2014 [facility] [place] [facility] [address] [id number] [place] [address] 10 Apr, 2014 [facility] [place] [facility] [address] [id number] [place] [address] 10 Apr, 2014 [facility] [place] [facility] [address] [id number] [place] [address] 05 Apr, 2014 [facility] [place] [facility] [address] [id number] [place] [address] Apr, [facility] [place] [facility] [address] [facility] [id number] [place] [address] Mar, [facility] [place] [facility] [address] [facility] [id number] [place] [address] Mar, [facility] [place] [facility] [address] [id number] [place] [address] Mar, [facility] [place] [facility] [address] [id number] [place] [address] Mar, [facility] [place] [facility] [address] [facility] [id number] [place] [address] Mar, [facility] [place] [facility] [address] [id number] [place] [address] Mar, [facility] [place] [facility] [address] [id number] [place] [address] Mar, [facility] [place] [facility] [address] [id number] [place] [address] Mar, [facility] [place] [facility] [address] [id number] [place] [address] Feb, [facility] [place] [facility] [address] [id number] [place] [address] Feb, [facility] [place] [facility] [address] [id number] [place] [address] Feb, [facility] [place] [facility] [address] [id number] [place] [address] Feb, [facility] [place] [facility] [address] [id number] [place] [address] Feb, [facility] [place] [facility] [address] [id number] [place] [address] Feb, [facility] [place] [facility] [address] [id number] [place] [address] Feb, [facility] [place] [facility] [address] [id number] [place] [address] Feb, [facility] [place] [facility] [address] [id number] [place] [address] Feb, [facility] [place] [facility] [address] [id number] [place] [address] Feb, [facility] [place] [facility] [address] [id number] [place] [address] Jan, [facility] [place] [facility] [address] [id number] [place] [address] Jan, [facility] [place] [facility] [address] [id number] [place] [address] Jan, [facility] [place] [facility] [address] [id number] [place] [address] Jan, [facility] [place] [facility] [address] [id number] [place] [address] Jan, [facility] [place] [facility] [address] [id number] [place] [address] Jan, [facility] [place] [facility] [address] [id number] [place] [address] Jan, [facility] [place] [facility] [address] [id number] [place] [address] Jan, [facility] [place] [facility] [address] [id number] [place] [address] Jan, [facility] [place] [facility] [address] [id number] [place] [address] Jan, [facility] [place] [facility] [address] [id number] [place] [address] Jan, [facility] [place] [facility] [address] [id number] [place] [address] Jan, [facility] [place] [facility] [address] [id number] [place] [address] Jan, [facility] [place] [facility] [address] [id number] [place] [address] Jan, [facility] [place] [facility] [address] [id number] [place] [address] Jan, [facility] [place] [facility] [address] [id number] [place] [address] Dec, 2013 [facility] [place] [facility] [address] [id number] [place] [address] 20 Dec, 2013 [facility] [place] [facility] [address] [id number] [place] [address] 16 Dec, 2013 [facility] [place] [facility] [address] [id number] [place] [address] 16 Dec, 2013 [facility] [place] [facility] [address] [id number] [place] [address] Dec, 2013 [facility] [place] [facility] [address] [id number] [place] [address] 09 Dec, 2013 [facility] [place] [facility] [address] [id number] [place] [address] 07 Dec, 2013 [facility] [place] [facility] [address] [id number] [place] [address] 07 Dec, 2013 [facility] [place] [facility] [address] [id number] [place] [address] 25 Sep, 2013 [facility] [place] [facility] [address] [id number] [place] [address] 25 Sep, 2013 [facility] [place] [facility] [address] [id number] [place] [address] 10 Sep, 2013 [facility] [place] [facility] [address] [id number] [place] [address] 10 Sep, 2013 [facility] [place] [facility] [address] [id number] [place] [address] 08 Sep, 2013 [facility] [place] [facility] [address] [id number] [place] [address] 08 Sep, 2013 [facility] [place] [facility] [address] [id number] [place] [address] 08 Sep, 2013 [facility] [place] [facility] [address] [id number] [place] [address] 08 Sep, 2013 [facility] [place] [facility] [address] [id number] [place] [address] 08 Sep, 2013 [facility] [place] [facility] [address] [id number] [place] [address] 08 Nov, 2013 [facility] [place] [facility] [address] [facility] [id number] [place] [address] 04 Nov, 2013 [facility] [place] [facility] [address] [facility] [id number] [place] [address] 04 Nov, 2013 [facility] [place] [facility] [address] [id number] [place] [address] 03 Nov, 2013 [facility] [place] [facility] [address] [facility] [id number] [place] [address] Nov, 2013 [facility] [place] [facility] [address] [id number] [place] [address] Nov, 2013 [facility] [place] [facility] [address] [id number] [place] [address] Oct, [facility] [place] [facility] [address] [id number] [place] [address] Oct, [facility] [place] [facility] [address] [facility] [id number] [place] [address] Oct, [facility] [place] [facility] [address] [id number] [place] [address] Oct, [facility] [place] [facility] [address] [id number] [place] [address] Oct, [facility] [place] [facility] [address] [id number] [place] [address] Oct, [facility] [place] [facility] [address] [facility] [id number] [place] [address] Oct, [facility] [place] [facility] [address] [id number] [place] [address] Oct, [facility] [place] [facility] [address] [facility] [id number] [place] [address] Oct, [facility] [place] [facility] [address] [id number] [place] [address] Oct, [facility] [place] [facility] [address] [facility] [id number] [place] [address] Oct, [facility] [place] [facility] [address] [id number] [place] [address] Oct, [facility] [place] [facility] [address] [facility] [id number] [place] [address] Oct, [facility] [place] [facility] [address] [id number] [place] [address] Oct, [facility] [place] [facility] [address] [facility] [id number] [place] [address] Sep, [facility] [place] [facility] [address] [id number] [place] [address] Sep, [facility] [place] [facility] [address] [id number] [place] [address] Sep, [facility] [place] [facility] [address] [id number] [place] [address] Sep, [facility] [place] [facility] [address] [id number] [place] [address] Sep, [facility] [place] [facility] [address] [id number] [place] [address] Sep, [facility] [place] [facility] [address] [id number] [place] [address] Sep, [facility] [place] [address] [id number] [place] [address] Sep, [facility] [place] [address] [id number] [place] [address] Aug, [facility] [place] [address] [facility] [id number] [place] [address] Aug, [facility] [address] [id number] [place] [address] Aug, [facility] [address] [id number] [place] [address] Aug, [facility] [place] [address] [id number] [place] [address] Aug, [facility] [place] [address] [id number] [place] [address] Aug, [facility] [place] [address] [id number] [place] [address] Aug, [facility] [place] [address] [id number] [place] [address] Aug, [facility] [place] [address] [id number] [place] [address] July, [facility] [address] [id number] [place] [address] July, [facility] [address] [id number] [place] [address] July, [facility] [place] [address] [id number] [place] [address] July, [facility] [place] [address] [id number] [place] [address] July, [facility] [place] [address] [id number] [place] [address] July, [facility] [place] [address] [id number] [place] [address] July, [facility] [address] [id number] [place] [address] July, [facility] [address] [id number] [place] [address] Jun, [facility] [address] [id number] [place] [address] Jun, [facility] [address] [id number] [place] [address] Jun, [facility] [address] [id number] [place] [address] Jun, [facility] [place] [address] [id number] [place] [address] Jun, [facility] [address] [id number] [place] [address] 17 Jun, 2013 [facility] [place] [address] [facility] [id number] [place] [address] Jun, [facility] [place] [address] [facility] [id number] [place] [address] Jun, [facility] [address] [id number] [place] [address] Jun, [facility] [address] [facility] [id number] [place] [address] Jun, [facility] [address] [facility] [id number] [place] [address] Jun, [facility] [place] [address] [id number] [place] [address] Jun, [facility] [place] [address] [id number] [place] [address] May, [facility] [place] [address] [id number] [place] [address] May, [facility] [place] [address] [facility] [id number] [place] [address] May, [facility] [address] [id number] [place] [address] May, [facility] [place] [address] [id number] [place] [address] May, [facility] [place] [address] [id number] [place] [address] May, [facility] [place] [address] [facility] [id number] [place] [address] May, [facility] [address] [facility] [id number] [place] [address] May, [facility] [place] [address] [id number] [place] [address] May, [facility] [address] [id number] [place] [address] May, [facility] [place] [address] [id number] [place] [address] May, [facility] [place] [address] [facility] [id number] [place] [address] May, [facility] [place] [address] [facility] [id number] [place] [address] May, [facility] [address] [id number] [place] [address] May, [facility] [address] [facility] [id number] [place] [address] Apr, [facility] [address] [facility] [id number] [place] [address] Apr, [facility] [address] [id number] [place] [address] Apr, [facility] [address] [id number] [place] [address] Apr, [facility] [address] [id number] [place] [address] Apr, [facility] [address] [id number] [place] [address] Apr, [facility] [address] [id number] [place] [address] Mar, [facility] [address] [id number] [place] [address] Mar, [facility] [address] [id number] [place] [address] Mar, [facility] [address] [facility] [id number] [place] [address] Mar, [facility] [address] [id number] [place] [address] Mar, [facility] [address] [id number] [place] [address] Mar, [facility] [address] [id number] [place] [address] Mar, [facility] [address] [id number] [place] [address] Mar, [facility] [address] [id number] [place] [address] Mar, [facility] [address] [id number] [place] [address] Mar, [facility] [address] [id number] [place] [address] Mar, [facility] [address] [id number] [place] [address] Mar, [facility] [address] [id number] [place] [address] Mar, [facility] [address] [id number] [place] [address] Mar, [facility] [address] [id number] [place] [address] Feb, [facility] [address] [id number] [place] [address] Feb, [facility] [address] [id number] [place] [address] Feb, [facility] [address] [id number] [place] [address] Feb, [facility] [address] [id number] [place] [address] Feb, [facility] [address] [id number] [place] [address] Feb, [facility] [address] [id number] [place] [address] Feb, [facility] [address] [id number] [place] [address] Feb, [facility] [address] [id number] [place] [address] Feb, [facility] [address] [id number] [place] [address] 09 Feb, 2012 [facility] [address] [facility] [id number] [place] [address] 09 Feb, 2012 [facility] [address] [id number] [place] [address] Feb, 2012 [facility] [address] [id number] [place] [address] Feb, 2012 [facility] [address] [id number] [place] [address] Feb, 2012 [facility] [address] [id number] [place] [address] Feb, 2012 [facility] [address] [id number] [place] [address] Feb, 2012 [facility] [address] [id number] [place] [address] 24 Dec, 2012 [facility] [address] [id number] [place] [address] 24 Dec, 2012 [facility] [address] [id number] [place] [address] 16 Dec, 2012 [facility] [address] [id number] [place] [address] 16 Dec, 2012 [facility] [address] [id number] [place] [address] 16 Dec, 2012 [facility] [address] [id number] [place] [address] 16 Dec, 2012 [facility] [address] [id number] [place] [address] 14 Dec, 2012 [facility] [address] [id number] [place] [address] 14 Dec, 2012 [facility] [address] [id number] [place] [address] 10 Dec, 2012 [facility] [address] [id number] [place] [address] 10 Dec, 2012 [facility] [address] [facility] [id number] [place] [address] 10 Dec, 2012 [facility] [address] [facility] [id number] [place] [address] 10 Dec, 2012 [facility] [address] [facility] [id number] [place] [address] Dec, [facility] [address] [id number] [place] [address] 25 Nov, 2012 [facility] [address] [facility] [id number] [place] [address] 20 Nov, 2012 [facility] [address] [facility] [id number] [place] [address] 18 Nov, 2012 [facility] [address] [id number] [place] [address] 16 Nov, 2012 [facility] [address] [id number] [place] [address] 12 Nov, 2012 [facility] [address] [id number] [place] [address] 11 Nov, 2012 [facility] [address] [id number] [place] [address] 05 Nov, 2012 [facility] [address] [id number] [place] [address] 15 Oct, 2012 [facility] [address] [id number] [place] [address] Oct, [facility] [address] [id number] [place] [address] Sep, [facility] [address] [facility] [id number] [place] [address] Sep, [facility] [address] [id number] [place] [address] Sep, [facility] [address] [id number] [place] [address] Sep, [facility] [address] [id number] [place] [address] 15 Sep, 2012 [facility] [address] [facility] [id number] [place] [address] 09 Sep, 2012 [facility] [address] [id number] [place] [address] 08 Sep, 2012 [facility] [address] [id number] [place] [address] Aug, [facility] [address] [id number] [place] [address] Aug, [facility] [address] [facility] [id number] [place] [address] 16 Aug, 2012 [facility] [address] [id number] [place] [address] Aug, [facility] [address] [id number] [place] [address] Aug, [facility] [address] [id number] [place] [address] Aug, [facility] [address] [id number] [place] [address] Aug, [facility] [address] [id number] [place] [address] Aug, [facility] [address] [id number] [place] [address] July, [facility] [address] [id number] [place] [address] July, [facility] [address] [id number] [place] [address] July, [facility] [address] [id number] [place] [id number] July, [facility] [address] [id number] [place] [address] July, [facility] [address] [id number] [place] [address] Jun, [facility] [address] [id number] [place] [address] 26 May, 2012 [facility] [address] [id number] [place] [address] 14 May, 2012 [facility] [address] [id number] [place] [address] 04 May, 2012 [facility] [address] [id number] [place] [address] Apr, [facility] [address] [id number] [place] [address] 08 Apr, 2012 [facility] [address] [id number] [place] [address] Apr, [facility] [address] [id number] [place] [address] Mar, [facility] [address] [id number] [place] [address] Mar, [facility] [address] [id number] [place] [address] Mar, [facility] [address] [id number] [place] [address] Mar, [facility] [address] [id number] [place] [address] Mar, [facility] [address] [id number] [place] [address] Mar, [facility] [address] [id number] [place] [address] Mar, [facility] [address] [id number] [place] [address] Feb, [facility] [address] [id number] [place] [address] Feb, [facility] [address] [id number] [place] [address] Feb, [facility] [address] [id number] [place] [address] Feb, [facility] [address] [id number] [place] [address] Feb, [facility] [address] [id number] [place] [address] Feb, [facility] [address] [id number] [place] [address] Feb, [facility] [address] [id number] [place] [address] Feb, [facility] [address] [id number] [place] [address] Jan, [facility] [address] [id number] [place] [address] Jan, [facility] [address] [id number] [place] [address] Jan, [facility] [address] [id number] [place] [address] Jan, [facility] [address] [id number] [place] [address] Jan, [facility] [address] [id number] [place] [address] Jan, [facility] [address] [id number] [place] [address] Jan, [facility] [address] [id number] [place] [address] Jan, [facility] [address] [id number] [place] [address] Jan, [facility] [address] [id number] [place] [address] Jan, [facility] [id number] [place] [address] Jan, [facility] [address] [id number] [place] [address] Jan, [facility] [address] [id number] [place] [address] Jan, [facility] [address] [id number] [place] [address] Jan, [facility] [address] [id number] [place] [address] Jan, [facility] [address] [id number] [place] [address] Jan, [facility] [address] [id number] [place] [address] Dec, [facility] [address] [id number] [place] [address] Dec, [facility] [address] [id number] [place] [address] Dec, [facility] [address] [id number] [place] [address] Dec, [facility] [address] [id number] [place] [address] Dec, [facility] [address] [id number] [place] [address] Dec, [facility] [address] [id number] [place] [address] Dec, [facility] [address] [id number] [place] [address] Dec, [facility] [address] [id number] [place] [address] 08 Dec, 2011 [facility] [address] [id number] [place] [address] 05 Dec, 2011 [facility] [address] [id number] [place] [address] 18 Nov, 2011 [facility] [address] [id number] [place] [address] 13 Nov, 2011 [facility] [address] [id number] [place] [address] 24 Oct, 2011 [facility] [address] [id number] [place] [address] Oct, [facility] [address] [id number] [place] [address] Oct, [facility] [address] [facility] [id number] [place] [address] Oct, [facility] [place] [address] [id number] [place] [address] Oct, [facility] [place] [address] [id number] [place] [address] Oct, [facility] [place] [address] [facility] [id number] [place] [address] Oct, [facility] [address] [id number] [place] [address] Sep, [facility] [address] [id number] [place] [address] Aug, [facility] [address] [id number] [place] [address] Aug, [facility] [address] [id number] [place] [address] Aug, [facility] [address] [id number] [place] [address] Aug, [facility] [address] [id number] [place] [address] Aug, [facility] [address] [id number] [place] [address] July, [facility] [address] [id number] [place] [address] July, [facility] [address] [id number] [place] [address] July, [facility] [place] [address] [id number] [place] [address] Jun, [facility] [address] [id number] [place] [address] Jun, [facility] [address] [id number] [place] [address] 04 Jun, 2011 [facility] [address] [id number] [place] [address] Jun, [facility] [address] [id number] [place] [address] 30 May, 2011 [facility] [address] [id number] [place] [address] 30 May, 2011 [facility] [address] [id number] [place] [address] 29 May, 2011 [facility] [address] [id number] [place] [address] May, [facility] [address] [id number] [place] [address] May, [facility] [address] [id number] [place] [address] May, [facility] [address] [id number] [place] [address] May, [facility] [address] [id number] [place] [address] May, [facility] [address] [id number] [place] [address] May, [facility] [address] [id number] [place] [address] May, [facility] [address] [id number] [place] [address] May, [facility] [address] [id number] [place] [address] May, [facility] [address] [id number] [place] [address] Mar, [facility] [address] [id number] [place] [address] Mar, [facility] [address] [id number] [place] [address] Feb, [facility] [address] [id number] [place] [address] Feb, [facility] [address] [id number] [place] [address] 20 Feb, 2011 [facility] [address] [id number] [place] [address] 15 Feb, 2011 [facility] [address] [id number] [place] [address] Feb, [facility] [address] [id number] [place] [address] Feb, [facility] [address] [id number] [place] [address] Feb, [facility] [address] [id number] [place] [address] Jan, [facility] [address] [id number] [place] [address] Jan, [facility] [address] [id number] [place] [address] Jan, [facility] [address] [id number] [place] [address] Jan, [facility] [address] [id number] [place] [address] Jan, [facility] [address] [id number] [place] [address] Jan, [facility] [address] [id number] [place] [address] Dec, [facility] [address] [id number] [place] [address] Dec, [facility] [address] [id number] [place] [address] Dec, [facility] [address] [id number] [place] [address] July, [facility] [address] [id number] [place] [address] July, [facility] [address] [facility] [id number] [place] [address] Feb, [facility] [address] [id number] [place] [address] Jan, [facility] [address] [id number] [place] [address] Dec, [facility] [address] [id number] [place] [address] Dec, [facility] [address] [id number] [place] [address] Sep, [facility] [address] [id number] [place] [address] Aug, [facility] [address] [id number] [place] [address] Jun, [facility] [address] [id number] [place] [address] Jun, [facility] [address] [id number] [place] [address] Jan, [facility] [address] [id number] [place] [address] Jan, [facility] [address] [id number] [place] [address] Jan, [facility] [address] [id number] [place] [address] Jan, [facility] [address] [id number] [place] [address] 29 Dec, 2008 [facility] [address] [id number] [place] [address] 26 Dec, 2008 [facility] [address] [id number] [place] [address] 15 Dec, 2008 [facility] [address] [id number] [place] [address] 17 Nov, 2008 [facility] [address] [id number] [place] [address] July, [facility] [address] [id number] [place] [address] May, [facility] [address] [id number] [place] [address] Apr, [facility] [address] [id number] [place] [address] Feb[facility] [address] [id number] [place] [address] Dec, IMMUNIZATIONS No Known Immunizations SOCIAL HISTORY [...]
--- OUTSIDE RECORDS SUMMARY | 2019-06-22 19:47 | XMS REPORT ---
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 Active 59435694 Problem Irritable bowel syndrome with diarrhea K58.0 Active 646750119 Problem Diabetes E11.9 Active 268847171 Problem Bipolar 1 disorder F31.9 Active 3 28181847 Problem Lumbar radiculopathy M54.16 Active 759244610 Problem Hyperlipidemia, unspecified E78.5 Ac tive 25001854 Problem Acute bilateral low back pain with right-sided sciatica M54.41 Active 047205094 Problem New daily persistent headache G44.52 Active 683967900 Problem Insulin long-term use Z79.4 Active 096290695 Problem Type 2 diabetes mellitus with complication E11.8 Active 470281519 Problem Post laminectomy syndrome M96.1 Acti ve 79594183 Problem Rhinosinusitis J32.9 Active 76164 000 Problem USP current 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 Z79.891 Active 259445366 Problem Eye exam normal Z01.00 Active 2438 87297 Problem Type 2 diabetes mellitus with hyperglycemia E11.65 Active 49273175 Problem Lumbago with sciatica, left side M54.42 Active 040190040 Problem Other chronic pain G89.29 Active 8 6366531 Problem Hypertriglyceridemia E78.1 Active 292288188 ALLERGIES No Information ENCOUNTERS Encounter Location Date Diagnosis [facility] [address] [id number] [place] [address] May, [facility] [id number] [place] [address] Apr, [facility] [address] [address] Apr, [facility] [id number] [place] [address] Mar, [facility] [address] [address] Mar, Bipolar 1 disorder F31.9 ; Borderline in tellectual functioning R41.83 and Extreme poverty Z59.5 [facility] [address] [address] Mar, Exercise counseling Z71.82 [place] [address] [address] Mar, [facility] [address] [address] Mar, Bipolar disorder, in partial remission, most recent episode manic F31.73 and 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 [facility] [id number] [place] [address] Mar, [facility] [address] [address] Mar, Exercise counseling Z71.82 [place] [id number] [place] [address] Feb, Bipolar 1 disorder F31.9 ; Borderline in tellectual functioning R41.83 and Extreme poverty Z59.5 [facility] [id number] [place] [address] Feb, [facility] [address] [address] Feb, Type 2 diabetes mellitus with complicati on E11.8 [facility] [address] [facility] [id number] [place] [address] Feb, Acute low back pain without sciatica, unspecified back pain laterality M54.5 [facility] [address] [address] Feb, Bipolar 1 disorder F31.9 ; Borderline in tellectual functioning R41.83 and Extreme poverty Z59.5 [facility] [address] [address] Jan, Bipolar 1 disorder F31.9 ; Borderline in tellectual functioning R41.83 and Extreme poverty Z59.5 [facility] [address] [address] Jan, [facility] [address] [address] Jan, Type 2 diabetes mellitus with complicati on E11.8 [place] [address] [address] Jan, Type 2 diabetes mellitus with complicati on E11.8 ; Dysuria R30.0 and Diarrhea, unspecified type R19.7 [facility] [address] [address] Jan, Bipolar 1 disorder F31.9 ; Borderline in tellectual functioning R41.83 and Extreme poverty Z59.5 [facility] [address] [address] Dec, [facility] [address] [address] Dec, [facility] [address] [address] Dec, [facility] [address] [address] Dec, [facility] [address] [address] Dec, Rhinosinusitis J32.9 [facility] [address] [address] Dec, [place] [address] [address] Dec, Bipolar 1 disorder F31.9 ; Borderline in tellectual functioning R41.83 and Extreme poverty Z59.5 [place] [address] [address] Dec, Type 2 diabetes mellitus with complicati on E11.8 and Type 2 diabetes mellitus with hyperglycemia E11.65 [place] [address] [address] Dec, [place] [address] [address] Dec, Type 2 diabetes mellitus with complicati on E11.8 ; Insulin long-term use Z79.4 ; Hyperglycemia R73.9 and Yeast infection B37.9 [place] [address] [address] Dec, Encounter for immunization Z23 [place] [address] [address] Nov, [place] [address] [address] Nov, Bipolar 1 disorder F31.9 ; Borderline in tellectual functioning R41.83 and Extreme poverty Z59.5 [place] [address] [address] Nov, [place] [address] [address] Nov, [place] [address] [address] Nov, Borderline intellectual functioning R41. 83 and Bipolar disorder, in partial remission, most recent episode manic F31.73 [facility] [address] [facility] [id number] [address] [place] [address] Nov, Epigastric abdominal pain R1 0.13 [place] [address] [address] Nov, Bipolar 1 disorder F31.9 ; Borderline in tellectual functioning R41.83 and Extreme poverty Z59.5 [facility] [address] [place] [address] Oct, Dysuria R30.0 and Acute cyst itis without hematuria N30.00 [facility] [id number] [address] Oct, [facility] [address] [address] Oct, [facility] [address] [address] Oct, Bipolar 1 disorder F31.9 ; Borderline in tellectual functioning R41.83 and Extreme poverty Z59.5 [place] [address] [address] Oct, [facility] [address] [address] Oct, [facility] [address] [address] Oct, Bipolar disorder, in partial remission, most recent episode manic F31.73 and 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 [place] [address] [address] Oct, Bipolar 1 disorder F31.9 ; Borderline in tellectual functioning R41.83 and Extreme poverty Z59.5 [facility] [address] [address] Oct, Diarrhea, unspecified type R19.7 [facility] [address] [id number] [place] [id number] Sep, Dental examination Z01.20 and Dental car ies K02.9 [facility] [id number] [place] [address] Sep, Mouth pain K13.79 [facility] [address] [address] Sep, [facility] [address] [address] Sep, Bipolar 1 disorder F31.9 ; Borderline in tellectual functioning R41.83 and Extreme poverty Z59.5 [place] [address] [address] Sep, [facility] [address] [address] Sep, [place] [address] [address] Sep, Diabetes E11.9 ; Hyperglycemia R73.9 ; L eliseo term current use of insulin Z79.4 and Diarrhea, unspecified type R19.7 [place] [address] [address] Sep, [place] [address] [address] Sep, Bipolar 1 disorder F31.9 ; Borderline in tellectual functioning R41.83 and Extreme poverty Z59.5 [place] [address] [address] Sep, [place] [address] [address] Sep, [place] [address] [address] Aug, Bipolar 1 disorder F31.9 ; Borderline in tellectual functioning R41.83 and Extreme poverty Z59.5 [place] [address] [address] Aug, Exercise counseling Z71.82 [place] [address] [address] Aug, Bipolar 1 disorder F31.9 ; Borderline in tellectual functioning R41.83 and Extreme poverty Z59.5 [place] [address] [address] Aug, Borderline intellectual functioning R41. 83 and Bipolar disorder, in partial remission, most recent episode manic F31.73 [facility] [address] [address] Aug, Low back pain M54.5 [facility] [address] [address] Aug, Borderline intellectual functioning R41. 83 and Bipolar disorder, in partial remission, most recent episode manic F31.73 [facility] [address] [address] July, Acute superficial gastritis without hemo rrhage K29.00 ; Low back pain M54.5 and Other chronic pain G89.29 [place] [address] [address] July, [place] [address] [address] July, [facility] [address] [address] Jun, [facility] [address] [facility] [id number] [address] [place] [address] Jun, Bilateral lower extremity ed epi R60.0 [facility] [address] [address] Jun, Borderline intellectual functioning R41. 83 and Bipolar disorder, in partial remission, most recent episode manic F31.73 [facility] [address] [address] Jun, [facility] [address] [address] May, Bronchitis J40 [facility] [address] [address] May, Screening for breast cancer Z12.31 and E ncounter for immunization Z23 [place] [address] [address] May, Bipolar 1 disorder F31.9 ; Borderline in tellectual functioning R41.83 and Extreme poverty Z59.5 [place] [address] [address] 11 Apr, 2018 [place] [address] [address] 07 Apr, 2018 Bipolar 1 disorder F31.9 ; Borderline in tellectual functioning R41.83 and Extreme poverty Z59.5 [place] [address] [address] 05 Apr, 2018 Irritable bowel syndrome with diarrhea K 58.0 and Dental abscess K04.7 [place] [address] [address] Mar, [place] [address] [address] Mar, [place] [address] [address] Mar, Bipolar 1 disorder F31.9 ; Borderline in tellectual functioning R41.83 and Extreme poverty Z59.5 [place] [address] [address] Mar, Hypertriglyceridemia E78.1 [place] [address] [address] Mar, Borderline intellectual functioning R41. 83 and Bipolar disorder, in partial remission, most recent episode manic F31.73 [place] [address] [address] Mar, Bipolar 1 disorder F31.9 ; Borderline in tellectual functioning R41.83 and Extreme poverty Z59.5 [place] [address] [address] 28 Feb, 2018 Generalized abdominal pain R10.84 and Di arrhea, unspecified type R19.7 [place] [address] [address] Feb, [place] [address] [address] Feb, Myalgia M79.10 and Nausea R11.0 [place] [address] [address] Feb, Bipolar 1 disorder F31.9 ; Borderline in tellectual functioning R41.83 and Extreme poverty Z59.5 [place] [address] [address] Feb, [place] [address] [address] Feb, Diabetes E11.9 ; Hyperglycemia R73.9 and Diarrhea, unspecified R19.7 [place] [address] [address] Feb, Diarrhea, unspecified type R19.7 ; Abdom inal pain R10.9 and Encounter for immunization Z23 [place] [address] [address] Jan, Bipolar 1 disorder F31.9 ; Borderline in tellectual functioning R41.83 and Extreme poverty Z59.5 [place] [address] [address] Dec, Bipolar 1 disorder F31.9 ; Borderline in tellectual functioning R41.83 and Extreme poverty Z59.5 [place] [address] [address] Nov, [place] [address] [address] Nov, Hypertriglyceridemia E78.[address] [address] Nov, Bipolar 1 disorder F31.9 ; Borderline in tellectual functioning R41.83 and Extreme poverty Z59.5 [place] [address] [address] Nov, Type 2 diabetes mellitus with complicati on E11.8 [place] [address] [address] 18 Nov, 2017 Borderline intellectual functioning R41. 83 and Bipolar disorder, in partial remission, most recent episode manic F31.73 [place] [address] [address] 12 Nov, 2017 Type 2 diabetes mellitus with complicati on E11.8 [place] [address] [address] 11 Nov, 2017 Bipolar 1 disorder F31.9 ; Borderline in tellectual functioning R41.83 and Extreme poverty Z59.5 [place] [address] [address] Nov, Type 2 diabetes mellitus with complicati on E11.8 ; Pain of left upper arm M79.622 ; Pain in right upper arm M79.621 ; Hyperglycemia R73.9 ; Lumbago with sciatica, left side M54.42 and Other chronic pain G89.29 [place] [address] [address] Oct, Bipolar 1 disorder F31.9 ; Borderline in tellectual functioning R41.83 and Extreme poverty Z59.5 [place] [address] [address] Oct, Type 2 diabetes mellitus with hyperglyce didi E11.65 ; USP current use of insulin Z79.4 and Other acute gastritis without hemorrhage K29.00 [place] [address] [address] Oct, Bipolar 1 disorder F31.9 ; Borderline in tellectual functioning R41.83 and Extreme poverty Z59.5 [place] [address] [address] Sep, Diarrhea, unspecified R19.7 and Vomiting , unspecified R11.10 [place] [address] [address] Aug, Type 2 diabetes mellitus with complicati on E11.8 [facility] [address] [address] Aug, [facility] [address] [address] Aug, Bipolar 1 disorder F31.9 ; Borderline in tellectual functioning R41.83 and Extreme poverty Z59.5 [place] [address] [address] Aug, Borderline intellectual functioning R41. 83 and Bipolar disorder, in partial remission, most recent episode manic F31.73 [place] [address] [address] Aug, Bipolar 1 disorder F31.9 [place] [address] [address] Aug, [place] [address] [address] Aug, [place] [address] [address] Aug, Bipolar 1 disorder F31.9 ; Borderline in tellectual functioning R41.83 and Extreme poverty Z59.5 [place] [address] [address] July, Type 2 diabetes mellitus with complicati on E11.8 [place] [address] [address] July, Bipolar 1 disorder F31.9 ; Borderline in tellectual functioning R41.83 and Extreme poverty Z59.5 [place] [address] [address] Jun, Bipolar 1 disorder F31.9 ; Borderline in tellectual functioning R41.83 and Extreme poverty Z59.5 [place] [address] [address] Jun, Bipolar 1 disorder F31.9 ; Borderline in tellectual functioning R41.83 and Extreme poverty Z59.5 [place] [address] [address] Jun, Bipolar 1 disorder F31.9 ; Borderline in tellectual functioning R41.83 and Extreme poverty Z59.5 [place] [address] [address] May, Urinary tract infection without hematuri a, site unspecified N39.0 [place] [address] [address] May, Bipolar 1 disorder F31.9 ; Borderline in tellectual functioning R41.83 and Extreme poverty Z59.5 [place] [address] [address] Apr, Diabetes E11.9 and Breast cancer screeni ng Z12.31 [place] [address] [address] Apr, Bipolar 1 disorder F31.9 and 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 [place] [address] [address] Mar, Bipolar 1 disorder F31.9 ; Borderline in tellectual functioning R41.83 and Extreme poverty Z59.5 [place] [address] [address] Mar, New daily persistent headache G44.52 ; L eg pain 729.5 and History of carpal tunnel release Z98.890 [place] [address] [address] Mar, Hyperlipidemia, unspecified E78.5 [place] [address] [address] Mar, Bipolar 1 disorder F31.9 ; Borderline in tellectual functioning R41.83 and Extreme poverty Z59.5 [place] [address] [address] Feb, Bipolar 1 disorder F31.9 ; Borderline in tellectual functioning R41.83 and Extreme poverty Z59.5 [place] [address] [address] Feb, Diabetes E11.9 [place] [address] [address] Feb, Viral syndrome B34.9 [place] [address] [address] Jan, Other viral agents as the cause of disea ses classified elsewhere B97.89 and Acute upper respiratory infection, unspecified J06.9 [place] [address] [address] Jan, Bipolar 1 disorder F31.9 and 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 [place] [address] [address] Jan, Bipolar 1 disorder F31.9 ; Borderline in tellectual functioning R41.83 and Extreme poverty Z59.5 [place] [address] [address] Dec, Diabetes E11.9 [place] [address] [address] Dec, Diabetes E11.9 and Encounter for immuniz ation Z23 [place] [address] [address] Dec, Bipolar 1 disorder F31.9 ; Borderline in tellectual functioning R41.83 and Extreme poverty Z59.5 [place] [address] [address] Dec, Back pain M54.9 [place] [address] [address] Nov, [place] [address] [address] Nov, Bipolar 1 disorder F31.9 ; Borderline in tellectual functioning R41.83 and Extreme poverty Z59.5 [place] [address] [address] Nov, Bipolar 1 disorder F31.9 ; Borderline in tellectual functioning R41.83 and Extreme poverty Z59.5 [place] [address] [address] Oct, Borderline intellectual functioning R41. 83 and Bipolar 1 disorder F31.9 [place] [address] [address] Oct, Bipolar 1 disorder F31.9 ; Borderline in tellectual functioning R41.83 and Extreme poverty Z59.5 [place] [address] [address] Oct, Back pain M54.9 [place] [address] [address] Oct, Borderline intellectual functioning R41. 83 and Type 2 diabetes mellitus with complication E11.8 [place] [address] [address] Sep, Bipolar 1 disorder F31.9 ; Borderline in tellectual functioning R41.83 and Extreme poverty Z59.5 [place] [address] [address] Sep, Borderline intellectual functioning R41. 83 and Bipolar 1 disorder F31.9 [place] [address] [address] Sep, Bipolar 1 disorder F31.9 ; Borderline in tellectual functioning R41.83 and Extreme poverty Z59.5 [place] [address] [address] Aug, Diabetes E11.9 ; Hyperlipidemia, unspeci fied E78.5 and Lumbar radiculopathy M54.16 [place] [address] [address] Aug, Bipolar 1 disorder F31.9 ; Borderline in tellectual functioning R41.83 and Extreme poverty Z59.5 [facility] [id number] [place] [address] Aug, [facility] [id number] [place] [address] Aug, [facility] [id number] [place] [address] Aug, [facility] [id number] [place] [address] July, [facility] [id number] [place] [address] July, Acute bilateral low back pain with right -sided sciatica M54.41 [place] [id number] [place] [address] July, Bipolar 1 disorder F31.9 ; Borderline in tellectual functioning R41.83 and Extreme poverty Z59.5 [place] [id number] [place] [address] July, Back pain M54.9 and Diabetes E11.9 [place] [id number] [place] [address] Jun, Bipolar 1 disorder F31.9 ; Borderline in tellectual functioning R41.83 and Extreme poverty Z59.5 [place] [id number] [place] [address] Jun, Bipolar 1 disorder F31.9 ; Borderline in tellectual functioning R41.83 and Extreme poverty Z59.5 [place] [id number] [place] [address] May, Visit for pelvic exam Z01.419 ; Acute va ginitis N76.0 and Diabetes E11.9 [facility] [id number] [place] [address] May, Bipolar 1 disorder F31.9 ; Borderline in tellectual functioning R41.83 and Extreme poverty Z59.5 [place] [address] [address] 08 May, 2016 [facility] [address] [address] May, [place] [address] [address] May, Bipolar 1 disorder F31.9 ; Borderline in tellectual functioning R41.83 and Extreme poverty Z59.5 [place] [address] [address] May, Hyperlipidemia, unspecified E78.5 [place] [address] [address] Apr, Breast cancer screening Z12.39 [place] [address] [address] Mar, [place] [address] [address] Mar, Bipolar disorder, current episode mixed, unspecified F31.60 [place] [address] [address] Mar, Bipolar 1 disorder F31.9 ; Borderline in tellectual functioning R41.83 and Extreme poverty Z59.5 [place] [address] [address] Feb, Acute nasopharyngitis J00 [place] [address] [address] Feb, Dental examination Z01.20 [place] [address] [address] Feb, Dental cavities K02.9 and Chronic period ontitis, unspecified K05.30 [place] [address] [address] Feb, Low back pain M54.5 and Extreme poverty Z59.5 [place] [address] [address] Feb, [place] [address] [address] 05 Feb, 2016 Routine gynecological examination V72.31 ; Breast cancer screening Z12.39 and Herpes simplex type [address] [address] 02 Feb, 2016 Diabetes E11.9 [place] [address] Feb, Encounter for dental examination and leti aning without abnormal findings Z01.[address] [address] Jan, Hyperlipidemia, unspecified E78.[address] [address] Jan, Bipolar 1 disorder F31.9 ; Borderline in tellectual functioning R41.83 and Extreme poverty Z59.[address] [address] 18 Jan, 2016 Diabetes E11.[address] [address] 17 Jan, 2016 Diabetes E11.[address] [address] 14 Dec, 2015 Bipolar 1 disorder F31.9 ; Borderline in tellectual functioning R41.83 and Extreme poverty Z59.[address] [address] 13 Dec, 2015 Bipolar disorder, current episode mixed, unspecified F31.60 and Borderline intellectual functioning R41.[address] [address] 16 Nov, 2015 Bipolar 1 disorder F31.9 ; Borderline in tellectual functioning R41.83 ; Extreme poverty Z59.5 and Non compliance with medical treatment Z91.[address] [address] Oct, [place] [address] [address] Oct, Dental caries K02.9 [place] [address] [address] Oct, Low back pain M54.5 and Other chronic pa in G89.29 [place] [address] [address] Oct, Bipolar 1 disorder F31.9 ; Borderline in tellectual functioning R41.83 ; Extreme poverty Z59.5 and Non compliance with medical treatment Z91.19 [place] [address] [address] Oct, [place] [address] [address] Oct, [place] [address] [address] Oct, Dental examination Z01.20 [place] [address] [address] Oct, Bipolar 1 disorder F31.9 ; Borderline in tellectual functioning R41.83 ; Extreme poverty Z59.5 and Non compliance with medical treatment Z91.19 [place] [address] [address] Oct, [place] [address] [address] Sep, Type 2 diabetes mellitus with complicati on E11.8 [place] [address] [address] Sep, Bipolar disorder, current episode mixed, unspecified F31.60 [place] [address] [address] Sep, Bipolar disorder, current episode mixed, unspecified F31.60 [place] [address] [address] Sep, Bipolar disorder, in partial remission, most recent episode manic F31.73 ; 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 ; Extreme poverty Z59.5 and Non compliance with medical treatment Z91.19 [place] [address] [address] Aug, Bipolar disorder, in partial remission, most recent episode manic F31.73 ; 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 ; Extreme poverty Z59.5 and Non compliance with medical treatment Z91.19 [place] [address] [address] Aug, Bipolar disorder, in partial remission, most recent episode manic F31.73 ; 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 ; Extreme poverty Z59.5 and Non compliance with medical treatment Z91.19 [place] [address] [address] Aug, [place] [address] [address] July, Bipolar disorder, in partial remission, most recent episode manic F31.73 ; 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 ; Extreme poverty Z59.5 and Non compliance with medical treatment Z91.19 [place] [address] [address] July, Bipolar disorder, current episode mixed, unspecified F31.60 [place] [address] [address] July, Bipolar disorder, in partial remission, most recent episode manic F31.73 ; 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 ; Extreme poverty Z59.5 and Non compliance with medical treatment Z91.19 [place] [address] [address] July, 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 Z79.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 and Chronic pain G89.29 [place] [address] [address] Jun, USP current use of opiate analgesi c Z79.891 and Bipolar 1 disorder F31.9 [place] [address] [address] Jun, [place] [address] [address] Jun, [facility] [address] [address] Jun, [place] [address] [address] Jun, Bipolar disorder, in partial remission, most recent episode manic F31.73 ; 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 and Non compliance with medical treatment Z91.19 [place] [address] [address] May, Bipolar disorder, in partial remission, most recent episode manic F31.73 ; 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 and Non compliance with medical treatment Z91.19 [place] [address] [address] May, Bipolar disorder, in partial remission, most recent episode manic F31.73 [place] [address] [address] May, Diabetes E11.9 and Chronic pain G89.29 [place] [address] [address] May, [place] [address] [address] May, Bipolar disorder, in partial remission, most recent episode manic F31.73 ; Non compliance with medical treatment Z91.19 and 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 [place] [address] [address] May, Type 2 diabetes mellitus with complicati on E11.8 and Back pain M54.9 [place] [address] [address] May, Bipolar disorder, in partial remission, most recent episode manic F31.73 and 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 [place] [address] [address] 24 Apr, 2015 [place] [address] [address] Apr, [place] [address] [address] 10 Apr, 2015 [place] [address] [address] 09 Apr, 2015 Diabetes E11.9 ; Irritable bowel syndrom e with diarrhea K58.0 and Lumbar radiculopathy M54.16 [place] [address] [address] 02 Apr, 2015 Breast screening Z12.39 [place] [address] [address] 02 Apr, 2015 Bipolar disorder, in partial remission, most recent episode manic F31.73 ; Non compliance with medical treatment Z91.19 and 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 [place] [address] [address] Mar, Edema, unspecified type R60.9 and Type 2 diabetes mellitus with complication E11.8 [place] [address] [address] Mar, Bipolar disorder, in partial remission, most recent episode manic F31.73 ; Non compliance with medical treatment Z91.19 ; 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 and Extreme poverty Z59.5 [place] [address] [address] 14 Mar, 2015 Bipolar disorder, current episode mixed, unspecified F31.60 ; 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 ; Extreme poverty Z59.5 and Generalized anxiety disorder F41.1 [place] [address] [address] 12 Mar, 2015 Bipolar disorder, in partial remission, most recent episode manic F31.73 ; 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 and Extreme poverty Z59.5 [place] [address] [address] 14 Feb, 2015 Bipolar disorder, in partial remission, most recent episode manic F31.73 ; 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 and Extreme poverty Z59.5 [place] [address] [address] Feb, Bipolar disorder, in partial remission, most recent episode manic F31.73 ; 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 and Extreme poverty Z59.5 [place] [address] [address] Feb, [place] [address] [address] Jan, Type 2 diabetes mellitus with complicati on E11.8 and Petechiae R23.3 [place] [address] [address] Jan, Type 2 diabetes mellitus with complicati on E11.8 ; Edema, unspecified R60.9 ; Petechiae R23.3 and Diabetes E11.9 [place] [address] [address] Jan, Bipolar disorder, in partial remission, most recent episode manic F31.73 ; Borderline intellectual functioning R41.83 and Extreme poverty Z59.5 [place] [address] [address] Jan, Bipolar disorder, in partial remission, most recent episode manic F31.73 ; 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 and Extreme poverty Z59.5 [place] [address] [address] Dec, Bipolar disorder, in partial remission, most recent episode manic F31.73 [place] [address] [address] Dec, Edema, due to unspecified malnutrition t ype, unspecified edema R60.9 and Essential hypertension I10 [place] [address] [address] Dec, Bipolar disorder, in partial remission, most recent episode manic F31.73 [facility] [address] [address] Nov, Bipolar I disorder, most recent episode (or current) mixed, unspecified 296.60 [facility] [address] [address] Nov, Stress incontinence, female 625.6 ; Back pain 724.5 and Leg pain 729.5 [facility] [address] [address] Nov, Generalized anxiety disorder 300.02 and Bipolar II disorder 296.89 [facility] [address] [address] Nov, Bipolar I disorder, most recent episode (or current) mixed, unspecified 296.60 [facility] [address] [address] Oct, [facility] [address] [address] Oct, [facility] [address] [address] Oct, [facility] [address] [address] Oct, Bipolar I disorder, most recent episode (or current) mixed, unspecified 296.60 [facility] [address] [address] Sep, Diabetes 250.00 [facility] [address] [address] Sep, Bipolar I disorder, most recent episode (or current) mixed, unspecified 296.60 [facility] [address] [address] Sep, [facility] [address] [address] Sep, [facility] [address] [address] Sep, Bipolar I disorder, most recent episode (or current) mixed, unspecified 296.60 [facility] [address] [address] Sep, Bipolar I disorder, most recent episode (or current) mixed, unspecified 296.60 [facility] [address] [address] Sep, [facility] [address] [address] Sep, Anxiety 300.00 ; Diabetes 250.00 and Hyp erlipidemia 272.4 [facility] [address] [address] Aug, [facility] [address] [address] Aug, [facility] [address] [address] Aug, [facility] [address] [address] Aug, Bipolar I disorder, most recent episode (or current) mixed, unspecified 296.60 [facility] [address] [address] Aug, Generalized anxiety disorder 300.02 and Bipolar II disorder 296.89 [facility] [address] [address] July, Bipolar I disorder, most recent episode (or current) mixed, unspecified 296.60 [facility] [address] [address] July, Cough 786.2 [facility] [address] [address] July, Bipolar I disorder, most recent episode (or current) mixed, unspecified 296.60 [facility] [address] [address] 30 Jun, 2014 Diabetes 250.00 [facility] [place] [facility] [address] [id number] [place] [address] 14 Jun, 2014 [facility] [place] [facility] [address] [id number] [place] [address] 13 Jun, 2014 [facility] [place] [facility] [address] [id number] [place] [address] 24 May, 2014 [facility] [place] [facility] [address] [id number] [place] [address] 24 May, 2014 [facility] [place] [facility] [address] [id number] [place] [address] 10 May, 2014 [facility] [place] [facility] [address] [id number] [place] [address] 10 May, 2014 [facility] [place] [facility] [address] [id number] [place] [address] May, [facility] [place] [facility] [address] [id number] [place] [address] May, [facility] [place] [facility] [address] [id number] [place] [address] Apr, [facility] [place] [facility] [address] [id number] [place] [address] 20 Apr, 2014 [facility] [place] [facility] [address] [id number] [place] [address] 11 Apr, 2014 [facility] [place] [facility] [address] [id number] [place] [address] Apr, 2014 [facility] [place] [facility] [address] [id number] [place] [address] 10 Apr, 2014 [facility] [place] [facility] [address] [id number] [place] [address] 10 Apr, 2014 [facility] [place] [facility] [address] [id number] [place] [address] 05 Apr, 2014 [facility] [place] [facility] [address] [id number] [place] [address] Apr, [facility] [place] [facility] [address] [facility] [id number] [place] [address] Mar, [facility] [place] [facility] [address] [facility] [id number] [place] [address] Mar, [facility] [place] [facility] [address] [id number] [place] [address] Mar, [facility] [place] [facility] [address] [id number] [place] [address] Mar, [facility] [place] [facility] [address] [facility] [id number] [place] [address] Mar, [facility] [place] [facility] [address] [id number] [place] [address] Mar, [facility] [place] [facility] [address] [id number] [place] [address] Mar, [facility] [place] [facility] [address] [id number] [place] [address] Mar, [facility] [place] [facility] [address] [id number] [place] [address] Feb, [facility] [place] [facility] [address] [id number] [place] [address] Feb, [facility] [place] [facility] [address] [id number] [place] [address] Feb, [facility] [place] [facility] [address] [id number] [place] [address] Feb, [facility] [place] [facility] [address] [id number] [place] [address] Feb, [facility] [place] [facility] [address] [id number] [place] [address] Feb, [facility] [place] [facility] [address] [id number] [place] [address] Feb, [facility] [place] [facility] [address] [id number] [place] [address] Feb, [facility] [place] [facility] [address] [id number] [place] [address] Feb, [facility] [place] [facility] [address] [id number] [place] [address] Feb, [facility] [place] [facility] [address] [id number] [place] [address] Jan, [facility] [place] [facility] [address] [id number] [place] [address] Jan, [facility] [place] [facility] [address] [id number] [place] [address] Jan, [facility] [place] [facility] [address] [id number] [place] [address] Jan, [facility] [place] [facility] [address] [id number] [place] [address] Jan, [facility] [place] [facility] [address] [id number] [place] [address] Jan, [facility] [place] [facility] [address] [id number] [place] [address] Jan, [facility] [place] [facility] [address] [id number] [place] [address] Jan, [facility] [place] [facility] [address] [id number] [place] [address] Jan, [facility] [place] [facility] [address] [id number] [place] [address] Jan, [facility] [place] [facility] [address] [id number] [place] [address] Jan, [facility] [place] [facility] [address] [id number] [place] [address] Jan, [facility] [place] [facility] [address] [id number] [place] [address] Jan, [facility] [place] [facility] [address] [id number] [place] [address] Jan, [facility] [place] [facility] [address] [id number] [place] [address] Jan, [facility] [place] [facility] [address] [id number] [place] [address] Dec, 2013 [facility] [place] [facility] [address] [id number] [place] [address] 20 Dec, 2013 [facility] [place] [facility] [address] [id number] [place] [address] 16 Dec, 2013 [facility] [place] [facility] [address] [id number] [place] [address] 16 Dec, 2013 [facility] [place] [facility] [address] [id number] [place] [address] Dec, 2013 [facility] [place] [facility] [address] [id number] [place] [address] 09 Dec, 2013 [facility] [place] [facility] [address] [id number] [place] [address] 07 Dec, 2013 [facility] [place] [facility] [address] [id number] [place] [address] 07 Dec, 2013 [facility] [place] [facility] [address] [id number] [place] [address] 25 Sep, 2013 [facility] [place] [facility] [address] [id number] [place] [address] 25 Sep, 2013 [facility] [place] [facility] [address] [id number] [place] [address] 10 Sep, 2013 [facility] [place] [facility] [address] [id number] [place] [address] 10 Sep, 2013 [facility] [place] [facility] [address] [id number] [place] [address] 08 Sep, 2013 [facility] [place] [facility] [address] [id number] [place] [address] 08 Sep, 2013 [facility] [place] [facility] [address] [id number] [place] [address] 08 Sep, 2013 [facility] [place] [facility] [address] [id number] [place] [address] 08 Sep, 2013 [facility] [place] [facility] [address] [id number] [place] [address] 08 Sep, 2013 [facility] [place] [facility] [address] [id number] [facility], [place] [address] 08 Nov, 2013 [facility] [place] [facility] [address] [facility] [id number] [facility], [place] [address] 04 Nov, 2013 [facility] [place] [facility] [address] [facility] [id number] [facility], [place] [address] 04 Nov, 2013 [facility] [place] [facility] [address] [id number] [place] [address] 03 Nov, 2013 [facility] [place] [facility] [address] [facility] [id number] [facility], [place] [address] Nov, 2013 [facility] [place] [facility] [address] [id number] [place] [address] Nov, 2013 [facility] [place] [facility] [address] [id number] [place] [address] Oct, [facility] [place] [facility] [address] [id number] [facility], [place] [address] Oct, [facility] [place] [facility] [address] [facility] [id number] [facility], [place] [address] Oct, [facility] [place] [facility] [address] [id number] [facility], [place] [address] Oct, [facility] [place] [facility] [address] [id number] [place] [address] Oct, [facility] [place] [facility] [address] [id number] [place] [address] Oct, [facility] [place] [facility] [address] [facility] [id number] [place] [address] Oct, [facility] [place] [facility] [address] [id number] [place] [address] Oct, [facility] [place] [facility] [address] [facility] [id number] [place] [address] Oct, [facility] [place] [facility] [address] [id number] [facility], [place] [address] Oct, [facility] [place] [facility] [address] [facility] [id number] [place] [address] Oct, [facility] [place] [facility] [address] [id number] [facility], [place] [address] Oct, [facility] [place] [facility] [address] [facility] [id number] [place] [address] Oct, [facility] [place] [facility] [address] [id number] [place] [address] Oct, [facility] [place] [facility] [address] [facility] [id number] [place] [address] Sep, [facility] [place] [facility] [address] [id number] [place] [address] Sep, [facility] [place] [facility] [address] [id number] [place] [address] Sep, [facility] [place] [facility] [address] [id number] [place] [address] Sep, [facility] [place] [facility] [address] [id number] [place] [address] Sep, [facility] [place] [facility] [address] [id number] [place] [address] Sep, [facility] [place] [facility] [address] [id number] [place] [address] Sep, [facility] [place] [facility] [address] [id number] [place] [address] Sep, [facility] [place] [facility] [address] [id number] [place] [address] Aug, [facility] [place] [facility] [address] [facility] [id number] [place] [address] Aug, [facility] [place] [facility] [address] [id number] [place] [address] Aug, [facility] [place] [facility] [address] [id number] [place] [address] Aug, [facility] [place] [facility] [address] [id number] [place] [address] Aug, [facility] [place] [facility] [address] [id number] [place] [address] Aug, [facility] [place] [facility] [address] [id number] [place] [address] Aug, [facility] [place] [facility] [address] [id number] [place] [address] Aug, [facility] [place] [facility] [address] [id number] [place] [address] July, [facility] [place] [facility] [address] [id number] [place] [address] July, [facility] [place] [facility] [address] [id number] [place] [address] July, [facility] [place] [facility] [address] [id number] [place] [address] July, [facility] [place] [facility] [address] [id number] [place] [address] July, [facility] [place] [facility] [address] [id number] [place] [address] July, [facility] [place] [facility] [address] [id number] [place] [address] July, [facility] [place] [facility] [address] [id number] [place] [address] July, [facility] [place] [facility] [address] [id number] [place] [address] Jun, [facility] [place] [facility] [address] [id number] [place] [address] Jun, [facility] [place] [facility] [address] [id number] [place] [address] Jun, [facility] [place] [facility] [address] [id number] [place] [address] Jun, [facility] [place] [facility] [address] [id number] [place] [address] Jun, [facility] [place] [facility] [address] [id number] [place] [address] 17 Jun, 2013 [facility] [place] [facility] [address] [facility] [id number] [facility], [place] [address] Jun, [facility] [place] [facility] [address] [facility] [id number] [facility], [place] [address] Jun, [facility] [place] [facility] [address] [id number] [place] [address] Jun, [facility] [place] [facility] [address] [facility] [id number] [facility], [place] [address] Jun, [facility] [address] [facility] [id number] [facility], [place] [address] Jun, [facility] [address] [id number] [facility], [place] [address] Jun, [facility] [address] [id number] [place] [address] May, [facility] [address] [id number] [facility], [place] [address] May, [facility] [address] [facility] [id number] [place] [address] May, [facility] [address] [id number] [place] [address] May, [facility] [address] [id number] [place] [address] May, [facility] [address] [id number] [place] [address] May, [facility] [address] [facility] [id number] [place] [address] May, [facility] [address] [facility] [id number] [place] [address] May, [facility] [address] [id number] [place] [address] May, [facility] [address] [id number] [place] [address] May, [facility] [address] [id number] [facility], [place] [address] May, [facility] [address] [facility] [id number] [place] [address] May, [facility] [address] [facility] [id number] [place] [address] May, [facility] [address] [id number] [place] [address] May, [facility] [address] [facility] [id number] [place] [address] Apr, [facility] [address] [facility] [id number] [place] [address] Apr, [facility] [address] [id number] [place] [address] Apr, [facility] [address] [id number] [place] [address] Apr, [facility] [address] [id number] [place] [address] Apr, [facility] [address] [id number] [place] [address] Apr, [facility] [address] [id number] [place] [address] Mar, [facility] [address] [id number] [place] [address] Mar, [facility] [address] [id number] [place] [address] Mar, [facility] [address] [facility] [id number] [place] [address] Mar, [facility] [address] [id number] [place] [address] Mar, [facility] [address] [id number] [place] [address] Mar, [facility] [address] [id number] [place] [address] Mar, [facility] [address] [id number] [place] [address] Mar, [facility] [address] [id number] [place] [address] Mar, [facility] [address] [id number] [place] [address] Mar, [facility] [address] [id number] [place] [address] Mar, [facility] [address] [id number] [place] [address] Mar, [facility] [address] [id number] [place] [address] Mar, [facility] [address] [id number] [place] [address] Mar, [facility] [address] [id number] [place] [address] Feb, [facility] [address] [id number] [place] [address] Feb, [facility] [address] [id number] [place] [address] Feb, [facility] [address] [id number] [place] [address] Feb, [facility] [address] [id number] [place] [address] Feb, [facility] [address] [id number] [place] [address] Feb, [facility] [address] [id number] [place] [address] Feb, [facility] [address] [id number] [place] [address] Feb, [facility] [address] [id number] [place] [address] Feb, [facility] [address] [id number] [place] [address] 09 Feb, 2012 [facility] [address] [facility] [id number] [place] [address] 09 Feb, 2012 [facility] [address] [id number] [place] [address] Feb, 2012 [facility] [address] [id number] [place] [address] Feb, 2012 [facility] [address] [id number] [place] [address] Feb, 2012 [facility] [address] [id number] [place] [address] Feb, 2012 [facility] [address] [id number] [place] [address] Feb, 2012 [facility] [address] [id number] [place] [address] 24 Dec, 2012 [facility] [address] [id number] [place] [address] 24 Dec, 2012 [facility] [address] [id number] [place] [address] 16 Dec, 2012 [facility] [address] [id number] [place] [address] 16 Dec, 2012 [facility] [address] [id number] [place] [address] 16 Dec, 2012 [facility] [address] [id number] [place] [address] 16 Dec, 2012 [facility] [address] [id number] [place] [address] 14 Dec, 2012 [facility] [address] [id number] [place] [address] 14 Dec, 2012 [facility] [address] [id number] [place] [address] 10 Dec, 2012 [facility] [address] [id number] [place] [address] 10 Dec, 2012 [facility] [address] [facility] [id number] [facility], [place] [address] 10 Dec, 2012 [facility] [address] [facility] [id number] [place] [address] 10 Dec, 2012 [facility] [address] [facility] [id number] [place] [address] Dec, [facility] [address] [id number] [place] [address] 25 Nov, 2012 [facility] [address] [facility] [id number] [place] [address] 20 Nov, 2012 [facility] [address] [facility] [id number] [place] [address] 18 Nov, 2012 [facility] [address] [id number] [place] [address] 16 Nov, 2012 [facility] [address] [id number] [place] [address] 12 Nov, 2012 [facility] [address] [id number] [place] [address] 11 Nov, 2012 [facility] [address] [id number] [place] [address] 05 Nov, 2012 [facility] [address] [id number] [place] [address] 15 Oct, 2012 [facility] [address] [id number] [place] [address] Oct, [facility] [address] [id number] [place] [address] Sep, [facility] [address] [facility] [id number] [place] [address] Sep, [facility] [address] [id number] [place] [address] Sep, [facility] [address] [id number] [place] [address] Sep, [facility] [address] [id number] [place] [address] 15 Sep, 2012 [facility] [address] [facility] [id number] [place] [address] 09 Sep, 2012 [facility] [address] [id number] [place] [address] 08 Sep, 2012 [facility] [address] [id number] [place] [address] Aug, [facility] [address] [id number] [place] [address] Aug, [facility] [address] [facility] [id number] [place] [address] 16 Aug, 2012 [facility] [address] [id number] [place] [address] Aug, [facility] [address] [id number] [place] [address] Aug, [facility] [address] [id number] [place] [address] Aug, [facility] [address] [id number] [place] [address] Aug, [facility] [address] [id number] [place] [address] Aug, [facility] [address] [id number] [place] [address] July, [facility] [address] [id number] [place] [address] July, [facility] [address] [id number] [place] [address] July, [facility] [address] [id number] [place] [id number] July, [facility] [address] [id number] [place] [address] July, [facility] [address] [id number] [place] [address] Jun, [facility] [address] [id number] [place] [address] 26 May, 2012 [facility] [address] [id number] [place] [address] 14 May, 2012 [facility] [address] [id number] [place] [address] 04 May, 2012 [facility] [address] [id number] [place] [address] Apr, [facility] [address] [id number] [place] [address] 08 Apr, 2012 [facility] [address] [id number] [place] [address] Apr, [facility] [address] [id number] [place] [address] Mar, [facility] [address] [id number] [place] [address] Mar, [facility] [address] [id number] [place] [address] Mar, [facility] [address] [id number] [place] [address] Mar, [facility] [address] [id number] [place] [address] Mar, [facility] [address] [id number] [place] [address] Mar, [facility] [address] [id number] [place] [address] Mar, [facility] [address] [id number] [place] [address] Feb, [facility] [address] [id number] [place] [address] Feb, [facility] [address] [id number] [place] [address] Feb, [facility] [address] [id number] [place] [address] Feb, [facility] [address] [id number] [place] [address] Feb, [facility] [address] [id number] [place] [address] Feb, [facility] [address] [id number] [place] [address] Feb, [facility] [address] [id number] [place] [address] Feb, [facility] [address] [id number] [place] [address] Jan, [facility] [address] [id number] [place] [address] Jan, [facility] [address] [id number] [place] [address] Jan, [facility] [address] [id number] [place] [address] Jan, [facility] [address] [id number] [place] [address] Jan, [facility] [address] [id number] [place] [address] Jan, [facility] [address] [id number] [place] [address] Jan, [facility] [address] [id number] [place] [address] Jan, [facility] [address] [id number] [place] [address] Jan, [facility] [address] [id number] [place] [address] Jan, [facility] [id number] [place] [address] Jan, [facility] [address] [id number] [place] [address] Jan, [facility] [address] [id number] [place] [address] Jan, [facility] [address] [id number] [place] [address] Jan, [facility] [address] [id number] [place] [address] Jan, [facility] [address] [id number] [place] [address] Jan, [facility] [address] [id number] [place] [address] Dec, [facility] [address] [id number] [place] [address] Dec, [facility] [address] [id number] [place] [address] Dec, [facility] [address] [id number] [place] [address] Dec, [facility] [address] [id number] [place] [address] Dec, [facility] [address] [id number] [place] [address] Dec, [facility] [address] [id number] [place] [address] Dec, [facility] [address] [id number] [place] [address] Dec, [facility] [address] [id number] [place] [address] 08 Dec, 2011 [facility] [address] [id number] [place] [address] 05 Dec, 2011 [facility] [address] [id number] [place] [address] 18 Nov, 2011 [facility] [address] [id number] [place] [address] 13 Nov, 2011 [facility] [address] [id number] [place] [address] 24 Oct, 2011 [facility] [address] [id number] [facility], [place] [address] Oct, [facility] [address] [id number] [facility], [place] [address] Oct, [facility] [address] [facility] [id number] [facility], [place] [address] Oct, [facility] [address] [id number] [facility], [place] [address] Oct, [facility] [address] [id number] [facility], [place] [address] Oct, [facility] [address] [facility] [id number] [facility], [place] [address] Oct, [facility] [address] [id number] [place] [address] Sep, [facility] [address] [id number] [place] [address] Aug, [facility] [address] [id number] [place] [address] Aug, [facility] [address] [id number] [facility], [place] [address] Aug, [facility] [address] [id number] [place] [address] Aug, [facility] [address] [id number] [place] [address] Aug, [facility] [address] [id number] [place] [address] July, [facility] [address] [id number] [place] [address] July, [facility] [address] [id number] [place] [address] July, [facility] [address] [id number] [facility], [place] [address] Jun, [facility] [address] [id number] [place] [address] Jun, [facility] [address] [id number] [facility], [place] [address] 04 Jun, 2011 [facility] [address] [id number] [place] [address] Jun, [facility] [address] [id number] [place] [address] 30 May, 2011 [facility] [address] [id number] [place] [address] 30 May, 2011 [facility] [address] [id number] [place] [address] 29 May, 2011 [facility] [address] [id number] [place] [address] May, [facility] [address] [id number] [place] [address] May, [facility] [address] [id number] [place] [address] May, [facility] [address] [id number] [place] [address] May, [facility] [address] [id number] [place] [address] May, [facility] [address] [id number] [place] [address] May, [facility] [address] [id number] [place] [address] May, [facility] [address] [id number] [place] [address] May, [facility] [address] [id number] [place] [address] May, [facility] [address] [id number] [place] [address] Mar, [facility] [address] [id number] [place] [address] Mar, [facility] [address] [id number] [place] [address] Feb, [facility] [address] [id number] [place] [address] Feb, [facility] [address] [id number] [place] [address] 20 Feb, 2011 [facility] [address] [id number] [place] [address] 15 Feb, 2011 [facility] [address] [id number] [place] [address] Feb, [facility] [address] [id number] [place] [address] Feb, [facility] [address] [id number] [place] [address] Feb, [facility] [address] [id number] [place] [address] Jan, [facility] [address] [id number] [place] [address] Jan, [facility] [address] [id number] [place] [address] Jan, [facility] [address] [id number] [place] [address] Jan, [facility] [address] [id number] [place] [address] Jan, [facility] [address] [id number] [place] [address] Jan, [facility] [address] [id number] [place] [address] Dec, [facility] [address] [id number] [place] [address] Dec, [facility] [address] [id number] [place] [address] Dec, [facility] [address] [id number] [place] [address] July, [facility] [address] [id number] [place] [address] July, [facility] [address] [facility] [id number] [place] [address] Feb, [facility] [address] [id number] [place] [address] Jan, [facility] [address] [id number] [place] [address] Dec, [facility] [address] [id number] [place] [address] Dec, [facility] [address] [id number] [place] [address] Sep, [facility] [address] [id number] [place] [address] Aug, [facility] [address] [id number] [place] [address] Jun, [facility] [address] [id number] [place] [address] Jun, [facility] [address] [id number] [place] [address] Jan, [facility] [address] [id number] [place] [address] Jan, [facility] [address] [id number] [place] [address] Jan, [facility] [address] [id number] [place] [address] Jan, [facility] [address] [id number] [place] [address] 29 Dec, 2008 [facility] [address] [id number] [place] [address] 26 Dec, 2008 [facility] [address] [id number] [place] [address] 15 Dec, 2008 [facility] [address] [id number] [place] [address] 17 Nov, 2008 [facility] [address] [id number] [place] [address] July, [facility] [address] [id number] [place] [address] May, [facility] [address] [id number] [place] [address] Apr, [facility] [address] [id number] [place] [address] Feb, [facility] [address] [id number] [place] [address] Dec, IMMUNIZATIONS No Known Immunizations SOCIAL HISTORY [...]
--- OUTSIDE RECORDS SUMMARY | 2019-06-22 19:47 | XMS REPORT ---
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 Active 63634786 Problem Irritable bowel syndrome with diarrhea K58.0 Active 144922112 Problem Diabetes E11.9 Active 498023181 Problem Bipolar 1 disorder F31.9 Active 3 61778958 Problem Lumbar radiculopathy M54.16 Active 372515805 Problem Hyperlipidemia, unspecified E78.5 Ac tive 05311028 Problem Acute bilateral low back pain with right-sided sciatica M54.41 Active 620965939 Problem New daily persistent headache G44.52 Active 031196306 Problem Insulin long-term use Z79.4 Active 805846297 Problem Type 2 diabetes mellitus with complication E11.8 Active 838621757 Problem Post laminectomy syndrome M96.1 Acti ve 01584457 Problem Rhinosinusitis J32.9 Active 99380 000 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 Active 726638417 Problem Eye exam normal Z01.00 Active 2438 42015 Problem Type 2 diabetes mellitus with hyperglycemia E11.65 Active 53104402 Problem Lumbago with sciatica, left side M54.42 Active 002860454 Problem Other chronic pain G89.29 Active 8 7372076 Problem Hypertriglyceridemia E78.1 Active [id number] ALLERGIES No Information ENCOUNTERS Encounter Location Date Diagnosis [facility] [address] [id number] [place] [address] May, [facility] [id number] [place] [address] Apr, [facility] [address] [address] Apr, [facility] [id number] [place] [address] Mar, [facility] [address] [address] Mar, Bipolar 1 disorder F31.9 ; Borderline in tellectual functioning R41.83 and Extreme poverty Z59.5 [facility] [address] [address] Mar, Exercise counseling Z71.82 [place] [address] [address] Mar, [facility] [address] [address] Mar, Bipolar disorder, in partial remission, most recent episode manic F31.73 and 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 [facility] [id number] [place] [address] Mar, [facility] [address] [address] Mar, Exercise counseling Z71.82 [place] [id number] [place] [address] Feb, Bipolar 1 disorder F31.9 ; Borderline in tellectual functioning R41.83 and Extreme poverty Z59.5 [facility] [id number] [place] [address] Feb, [facility] [address] [address] Feb, Type 2 diabetes mellitus with complicati on E11.8 [facility] [address] [facility] [id number] [address] [place] [address] Feb, Acute low back pain without sciatica, unspecified back pain laterality M54.5 [facility] [address] [address] Feb, Bipolar 1 disorder F31.9 ; Borderline in tellectual functioning R41.83 and Extreme poverty Z59.5 [facility] [address] [address] Jan, Bipolar 1 disorder F31.9 ; Borderline in tellectual functioning R41.83 and Extreme poverty Z59.5 [facility] [address] [address] Jan, [facility] [address] [address] Jan, Type 2 diabetes mellitus with complicati on E11.8 [place] [address] [address] Jan, Type 2 diabetes mellitus with complicati on E11.8 ; Dysuria R30.0 and Diarrhea, unspecified type R19.7 [facility] [address] [address] Jan, Bipolar 1 disorder F31.9 ; Borderline in tellectual functioning R41.83 and Extreme poverty Z59.5 [facility] [address] [address] Dec, [facility] [address] [address] Dec, [facility] [address] [address] Dec, [facility] [address] [address] Dec, [facility] [address] [address] Dec, Rhinosinusitis J32.9 [facility] [address] [address] Dec, [place] [address] [address] Dec, Bipolar 1 disorder F31.9 ; Borderline in tellectual functioning R41.83 and Extreme poverty Z59.5 [place] [address] [address] Dec, Type 2 diabetes mellitus with complicati on E11.8 and Type 2 diabetes mellitus with hyperglycemia E11.65 [place] [address] [address] Dec, [place] [address] [address] Dec, Type 2 diabetes mellitus with complicati on E11.8 ; Insulin long-term use Z79.4 ; Hyperglycemia R73.9 and Yeast infection B37.9 [place] [address] [address] Dec, Encounter for immunization Z23 [place] [address] [address] Nov, [place] [address] [address] Nov, Bipolar 1 disorder F31.9 ; Borderline in tellectual functioning R41.83 and Extreme poverty Z59.5 [place] [address] [address] Nov, [place] [address] [address] Nov, [place] [address] [address] Nov, Borderline intellectual functioning R41. 83 and Bipolar disorder, in partial remission, most recent episode manic F31.73 [facility] [address] [facility] [id number] [address] [place] [address] Nov, Epigastric abdominal pain R1 0.13 [place] [address] [address] Nov, Bipolar 1 disorder F31.9 ; Borderline in tellectual functioning R41.83 and Extreme poverty Z59.5 [facility] [address] [place] [address] Oct, Dysuria R30.0 and Acute cyst itis without hematuria N30.00 [facility] [id number] [place] [address] Oct, [facility] [address] [address] Oct, [facility] [address] [address] Oct, Bipolar 1 disorder F31.9 ; Borderline in tellectual functioning R41.83 and Extreme poverty Z59.5 [place] [address] [address] Oct, [facility] [address] [address] Oct, [facility] [address] [address] Oct, Bipolar disorder, in partial remission, most recent episode manic F31.73 and 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 [place] [address] [address] Oct, Bipolar 1 disorder F31.9 ; Borderline in tellectual functioning R41.83 and Extreme poverty Z59.5 [facility] [address] [address] Oct, Diarrhea, unspecified type R19.7 [facility] [address] [id number] [place] [id number] Sep, Dental examination Z01.20 and Dental car ies K02.9 [facility] [id number] [place] [address] Sep, Mouth pain K13.79 [facility] [address] [address] Sep, [facility] [address] [address] Sep, Bipolar 1 disorder F31.9 ; Borderline in tellectual functioning R41.83 and Extreme poverty Z59.5 [place] [address] [address] Sep, [facility] [address] [address] Sep, [place] [address] [address] Sep, Diabetes E11.9 ; Hyperglycemia R73.9 ; L eliseo term current use of insulin Z79.4 and Diarrhea, unspecified type R19.7 [place] [address] [address] Sep, [place] [address] [address] Sep, Bipolar 1 disorder F31.9 ; Borderline in tellectual functioning R41.83 and Extreme poverty Z59.5 [place] [address] [address] Sep, [place] [address] [address] Sep, [place] [address] [address] Aug, Bipolar 1 disorder F31.9 ; Borderline in tellectual functioning R41.83 and Extreme poverty Z59.5 [place] [address] [address] Aug, Exercise counseling Z71.82 [place] [address] [address] Aug, Bipolar 1 disorder F31.9 ; Borderline in tellectual functioning R41.83 and Extreme poverty Z59.5 [place] [address] [address] Aug, Borderline intellectual functioning R41. 83 and Bipolar disorder, in partial remission, most recent episode manic F31.73 [facility] [address] [address] Aug, Low back pain M54.5 [facility] [address] [address] Aug, Borderline intellectual functioning R41. 83 and Bipolar disorder, in partial remission, most recent episode manic F31.73 [facility] [address] [address] July, Acute superficial gastritis without hemo rrhage K29.00 ; Low back pain M54.5 and Other chronic pain G89.29 [place] [address] [address] July, [place] [address] [address] July, [facility] [address] [address] Jun, [facility] [address] [facility] [id number] [address] [place] [address] Jun, Bilateral lower extremity ed epi R60.0 [facility] [address] [address] Jun, Borderline intellectual functioning R41. 83 and Bipolar disorder, in partial remission, most recent episode manic F31.73 [facility] [address] [address] Jun, [facility] [address] [address] May, Bronchitis J40 [facility] [address] [address] May, Screening for breast cancer Z12.31 and E ncounter for immunization Z23 [place] [address] [address] May, Bipolar 1 disorder F31.9 ; Borderline in tellectual functioning R41.83 and Extreme poverty Z59.5 [place] [address] [address] 11 Apr, 2018 [place] [address] [address] 07 Apr, 2018 Bipolar 1 disorder F31.9 ; Borderline in tellectual functioning R41.83 and Extreme poverty Z59.5 [place] [address] [address] 05 Apr, 2018 Irritable bowel syndrome with diarrhea K 58.0 and Dental abscess K04.7 [place] [address] [address] Mar, [place] [address] [address] Mar, [place] [address] [address] Mar, Bipolar 1 disorder F31.9 ; Borderline in tellectual functioning R41.83 and Extreme poverty Z59.5 [place] [address] [address] Mar, Hypertriglyceridemia E78.1 [place] [address] [address] Mar, Borderline intellectual functioning R41. 83 and Bipolar disorder, in partial remission, most recent episode manic F31.73 [place] [address] [address] Mar, Bipolar 1 disorder F31.9 ; Borderline in tellectual functioning R41.83 and Extreme poverty Z59.5 [place] [address] [address] 28 Feb, 2018 Generalized abdominal pain R10.84 and Di arrhea, unspecified type R19.7 [place] [address] [address] Feb, [place] [address] [address] Feb, Myalgia M79.10 and Nausea R11.0 [place] [address] [address] Feb, Bipolar 1 disorder F31.9 ; Borderline in tellectual functioning R41.83 and Extreme poverty Z59.5 [place] [address] [address] Feb, [place] [address] [address] Feb, Diabetes E11.9 ; Hyperglycemia R73.9 and Diarrhea, unspecified R19.7 [place] [address] [address] Feb, Diarrhea, unspecified type R19.7 ; Abdom inal pain R10.9 and Encounter for immunization Z23 [place] [address] [address] Jan, Bipolar 1 disorder F31.9 ; Borderline in tellectual functioning R41.83 and Extreme poverty Z59.5 [place] [address] [address] Dec, Bipolar 1 disorder F31.9 ; Borderline in tellectual functioning R41.83 and Extreme poverty Z59.5 [place] [address] [address] Nov, [place] [address] [address] Nov, Hypertriglyceridemia E78.[address] [address] Nov, Bipolar 1 disorder F31.9 ; Borderline in tellectual functioning R41.83 and Extreme poverty Z59.5 [place] [address] [address] Nov, Type 2 diabetes mellitus with complicati on E11.8 [place] [address] [address] 18 Nov, 2017 Borderline intellectual functioning R41. 83 and Bipolar disorder, in partial remission, most recent episode manic F31.73 [place] [address] [address] 12 Nov, 2017 Type 2 diabetes mellitus with complicati on E11.8 [place] [address] [address] 11 Nov, 2017 Bipolar 1 disorder F31.9 ; Borderline in tellectual functioning R41.83 and Extreme poverty Z59.5 [place] [address] [address] Nov, Type 2 diabetes mellitus with complicati on E11.8 ; Pain of left upper arm M79.622 ; Pain in right upper arm M79.621 ; Hyperglycemia R73.9 ; Lumbago with sciatica, left side M54.42 and Other chronic pain G89.29 [place] [address] [address] Oct, Bipolar 1 disorder F31.9 ; Borderline in tellectual functioning R41.83 and Extreme poverty Z59.5 [place] [address] [address] Oct, Type 2 diabetes mellitus with hyperglyce didi E11.65 ; senior living current use of insulin Z79.4 and Other acute gastritis without hemorrhage K29.00 [place] [address] [address] Oct, Bipolar 1 disorder F31.9 ; Borderline in tellectual functioning R41.83 and Extreme poverty Z59.5 [place] [address] [address] Sep, Diarrhea, unspecified R19.7 and Vomiting , unspecified R11.10 [place] [address] [address] Aug, Type 2 diabetes mellitus with complicati on E11.8 [facility] [address] [address] Aug, [facility] [address] [address] Aug, Bipolar 1 disorder F31.9 ; Borderline in tellectual functioning R41.83 and Extreme poverty Z59.5 [place] [address] [address] Aug, Borderline intellectual functioning R41. 83 and Bipolar disorder, in partial remission, most recent episode manic F31.73 [place] [address] [address] Aug, Bipolar 1 disorder F31.9 [place] [address] [address] Aug, [place] [address] [address] Aug, [place] [address] [address] Aug, Bipolar 1 disorder F31.9 ; Borderline in tellectual functioning R41.83 and Extreme poverty Z59.5 [place] [address] [address] July, Type 2 diabetes mellitus with complicati on E11.8 [place] [address] [address] July, Bipolar 1 disorder F31.9 ; Borderline in tellectual functioning R41.83 and Extreme poverty Z59.5 [place] [address] [address] Jun, Bipolar 1 disorder F31.9 ; Borderline in tellectual functioning R41.83 and Extreme poverty Z59.5 [place] [address] [address] Jun, Bipolar 1 disorder F31.9 ; Borderline in tellectual functioning R41.83 and Extreme poverty Z59.5 [place] [address] [address] Jun, Bipolar 1 disorder F31.9 ; Borderline in tellectual functioning R41.83 and Extreme poverty Z59.5 [place] [address] [address] May, Urinary tract infection without hematuri a, site unspecified N39.0 [place] [address] [address] May, Bipolar 1 disorder F31.9 ; Borderline in tellectual functioning R41.83 and Extreme poverty Z59.5 [place] [address] [address] Apr, Diabetes E11.9 and Breast cancer screeni ng Z12.31 [place] [address] [address] Apr, Bipolar 1 disorder F31.9 and 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 [place] [address] [address] Mar, Bipolar 1 disorder F31.9 ; Borderline in tellectual functioning R41.83 and Extreme poverty Z59.5 [place] [address] [address] Mar, New daily persistent headache G44.52 ; L eg pain 729.5 and History of carpal tunnel release Z98.890 [place] [address] [address] Mar, Hyperlipidemia, unspecified E78.5 [place] [address] [address] Mar, Bipolar 1 disorder F31.9 ; Borderline in tellectual functioning R41.83 and Extreme poverty Z59.5 [place] [address] [address] Feb, Bipolar 1 disorder F31.9 ; Borderline in tellectual functioning R41.83 and Extreme poverty Z59.5 [place] [address] [address] Feb, Diabetes E11.9 [place] [address] [address] Feb, Viral syndrome B34.9 [place] [address] [address] Jan, Other viral agents as the cause of disea ses classified elsewhere B97.89 and Acute upper respiratory infection, unspecified J06.9 [place] [address] [address] Jan, Bipolar 1 disorder F31.9 and 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 [place] [address] [address] Jan, Bipolar 1 disorder F31.9 ; Borderline in tellectual functioning R41.83 and Extreme poverty Z59.5 [place] [address] [address] Dec, Diabetes E11.9 [place] [address] [address] Dec, Diabetes E11.9 and Encounter for immuniz ation Z23 [place] [address] [address] Dec, Bipolar 1 disorder F31.9 ; Borderline in tellectual functioning R41.83 and Extreme poverty Z59.5 [place] [address] [address] Dec, Back pain M54.9 [place] [address] [address] Nov, [place] [address] [address] Nov, Bipolar 1 disorder F31.9 ; Borderline in tellectual functioning R41.83 and Extreme poverty Z59.5 [place] [address] [address] Nov, Bipolar 1 disorder F31.9 ; Borderline in tellectual functioning R41.83 and Extreme poverty Z59.5 [place] [address] [address] Oct, Borderline intellectual functioning R41. 83 and Bipolar 1 disorder F31.9 [place] [address] [address] Oct, Bipolar 1 disorder F31.9 ; Borderline in tellectual functioning R41.83 and Extreme poverty Z59.5 [place] [address] [address] Oct, Back pain M54.9 [place] [address] [address] Oct, Borderline intellectual functioning R41. 83 and Type 2 diabetes mellitus with complication E11.8 [place] [address] [address] Sep, Bipolar 1 disorder F31.9 ; Borderline in tellectual functioning R41.83 and Extreme poverty Z59.5 [place] [address] [address] Sep, Borderline intellectual functioning R41. 83 and Bipolar 1 disorder F31.9 [place] [address] [address] Sep, Bipolar 1 disorder F31.9 ; Borderline in tellectual functioning R41.83 and Extreme poverty Z59.5 [place] [address] [address] Aug, Diabetes E11.9 ; Hyperlipidemia, unspeci fied E78.5 and Lumbar radiculopathy M54.16 [place] [address] [address] Aug, Bipolar 1 disorder F31.9 ; Borderline in tellectual functioning R41.83 and Extreme poverty Z59.5 [facility] [id number] [place] [address] Aug, [facility] [id number] [place] [address] Aug, [facility] [id number] [place] [address] Aug, [facility] [id number] [place] [address] July, [facility] [id number] [place] [address] July, Acute bilateral low back pain with right -sided sciatica M54.41 [place] [id number] [place] [address] July, Bipolar 1 disorder F31.9 ; Borderline in tellectual functioning R41.83 and Extreme poverty Z59.5 [place] [id number] [place] [address] July, Back pain M54.9 and Diabetes E11.9 [place] [id number] [place] [address] Jun, Bipolar 1 disorder F31.9 ; Borderline in tellectual functioning R41.83 and Extreme poverty Z59.5 [place] [id number] [place] [address] Jun, Bipolar 1 disorder F31.9 ; Borderline in tellectual functioning R41.83 and Extreme poverty Z59.5 [place] [id number] [place] [address] May, Visit for pelvic exam Z01.419 ; Acute va ginitis N76.0 and Diabetes E11.9 [facility] [id number] [place] [address] May, Bipolar 1 disorder F31.9 ; Borderline in tellectual functioning R41.83 and Extreme poverty Z59.5 [place] [address] [address] 08 May, 2016 [facility] [address] [address] May, [place] [address] [address] May, Bipolar 1 disorder F31.9 ; Borderline in tellectual functioning R41.83 and Extreme poverty Z59.5 [place] [address] [address] May, Hyperlipidemia, unspecified E78.5 [place] [address] [address] Apr, Breast cancer screening Z12.39 [place] [address] [address] Mar, [place] [address] [address] Mar, Bipolar disorder, current episode mixed, unspecified F31.60 [place] [address] [address] Mar, Bipolar 1 disorder F31.9 ; Borderline in tellectual functioning R41.83 and Extreme poverty Z59.5 [place] [address] [address] Feb, Acute nasopharyngitis J00 [place] [address] [address] Feb, Dental examination Z01.20 [place] [address] [address] Feb, Dental cavities K02.9 and Chronic period ontitis, unspecified K05.30 [place] [address] [address] Feb, Low back pain M54.5 and Extreme poverty Z59.5 [place] [address] [address] Feb, [place] [address] [address] 05 Feb, 2016 Routine gynecological examination V72.31 ; Breast cancer screening Z12.39 and Herpes simplex type [address] [address] 02 Feb, 2016 Diabetes E11.9 [place] [address] Feb, Encounter for dental examination and leti aning without abnormal findings Z01.[address] [address] Jan, Hyperlipidemia, unspecified E78.[address] [address] Jan, Bipolar 1 disorder F31.9 ; Borderline in tellectual functioning R41.83 and Extreme poverty Z59.[address] [address] 18 Jan, 2016 Diabetes E11.[address] [address] 17 Jan, 2016 Diabetes E11.[address] [address] 14 Dec, 2015 Bipolar 1 disorder F31.9 ; Borderline in tellectual functioning R41.83 and Extreme poverty Z59.[address] [address] 13 Dec, 2015 Bipolar disorder, current episode mixed, unspecified F31.60 and Borderline intellectual functioning R41.[address] [address] 16 Nov, 2015 Bipolar 1 disorder F31.9 ; Borderline in tellectual functioning R41.83 ; Extreme poverty Z59.5 and Non compliance with medical treatment Z91.[address] [address] Oct, [place] [address] [address] Oct, Dental caries K02.9 [place] [address] [address] Oct, Low back pain M54.5 and Other chronic pa in G89.29 [place] [address] [address] Oct, Bipolar 1 disorder F31.9 ; Borderline in tellectual functioning R41.83 ; Extreme poverty Z59.5 and Non compliance with medical treatment Z91.19 [place] [address] [address] Oct, [place] [address] [address] Oct, [place] [address] [address] Oct, Dental examination Z01.20 [place] [address] [address] Oct, Bipolar 1 disorder F31.9 ; Borderline in tellectual functioning R41.83 ; Extreme poverty Z59.5 and Non compliance with medical treatment Z91.19 [place] [address] [address] Oct, [place] [address] [address] Sep, Type 2 diabetes mellitus with complicati on E11.8 [place] [address] [address] Sep, Bipolar disorder, current episode mixed, unspecified F31.60 [place] [address] [address] Sep, Bipolar disorder, current episode mixed, unspecified F31.60 [place] [address] [address] Sep, Bipolar disorder, in partial remission, most recent episode manic F31.73 ; 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 ; Extreme poverty Z59.5 and Non compliance with medical treatment Z91.19 [place] [address] [address] Aug, Bipolar disorder, in partial remission, most recent episode manic F31.73 ; 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 ; Extreme poverty Z59.5 and Non compliance with medical treatment Z91.19 [place] [address] [address] Aug, Bipolar disorder, in partial remission, most recent episode manic F31.73 ; 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 ; Extreme poverty Z59.5 and Non compliance with medical treatment Z91.19 [place] [address] [address] Aug, [place] [address] [address] July, Bipolar disorder, in partial remission, most recent episode manic F31.73 ; 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 ; Extreme poverty Z59.5 and Non compliance with medical treatment Z91.19 [place] [address] [address] July, Bipolar disorder, current episode mixed, unspecified F31.60 [place] [address] [address] July, Bipolar disorder, in partial remission, most recent episode manic F31.73 ; 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 ; Extreme poverty Z59.5 and Non compliance with medical treatment Z91.19 [place] [address] [address] July, senior living current use of opiate analgesi c Z79.891 and Chronic pain G89.29 [place] [address] [address] Jun, 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 and Bipolar 1 disorder F31.9 [place] [address] [address] Jun, [place] [address] [address] Jun, [facility] [address] [address] Jun, [place] [address] [address] Jun, Bipolar disorder, in partial remission, most recent episode manic F31.73 ; 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 and Non compliance with medical treatment Z91.19 [place] [address] [address] May, Bipolar disorder, in partial remission, most recent episode manic F31.73 ; 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 and Non compliance with medical treatment Z91.19 [place] [address] [address] May, Bipolar disorder, in partial remission, most recent episode manic F31.73 [place] [address] [address] May, Diabetes E11.9 and Chronic pain G89.29 [place] [address] [address] May, [place] [address] [address] May, Bipolar disorder, in partial remission, most recent episode manic F31.73 ; Non compliance with medical treatment Z91.19 and 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0 and Lumbar radiculopathy M54.16 [place] [address] [address] 02 Apr, 2015 Breast screening Z12.39 [place] [address] [address] 02 Apr, 2015 Bipolar disorder, in partial remission, most recent episode manic F31.73 ; Non compliance with medical treatment Z91.19 and 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 [place] [address] [address] Mar, Edema, unspecified type R60.9 and Type 2 diabetes mellitus with complication E11.8 [place] [address] [address] Mar, Bipolar disorder, in partial remission, most recent episode manic F31.73 ; Non compliance with medical treatment Z91.19 ; 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 and Extreme poverty Z59.5 [place] [address] [address] 14 Mar, 2015 Bipolar disorder, current episode mixed, unspecified F31.60 ; 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73 ; 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 and Extreme poverty Z59.5 [place] [address] [address] Feb, [place] [address] [address] Jan, Type 2 diabetes mellitus with complicati on E11.8 and Petechiae R23.3 [place] [address] [address] Jan, Type 2 diabetes mellitus with complicati on E11.8 ; Edema, unspecified R60.9 ; Petechiae R23.3 and Diabetes E11.9 [place] [address] [address] Jan, Bipolar disorder, in partial remission, most recent episode manic F31.73 ; 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 and Extreme poverty Z59.5 [place] [address] [address] Jan, Bipolar disorder, in partial remission, most recent episode manic F31.73 ; 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 and Extreme poverty Z59.5 [place] [address] [address] Dec, Bipolar disorder, in partial remission, most recent episode manic F31.73 [place] [address] [address] Dec, Edema, due to unspecified malnutrition t ype, unspecified edema R60.9 and Essential hypertension I10 [place] [address] [address] Dec, Bipolar disorder, in partial remission, most recent episode manic F31.73 [facility] [address] [address] Nov, Bipolar I disorder, most recent episode (or current) mixed, unspecified 296.60 [facility] [address] [address] Nov, Stress incontinence, female 625.6 ; Back pain 724.5 and Leg pain 729.5 [facility] [address] [address] Nov, Generalized anxiety disorder 300.02 and Bipolar II disorder 296.89 [facility] [address] [address] Nov, Bipolar I disorder, most recent episode (or current) mixed, unspecified 296.60 [facility] [address] [address] Oct, [facility] [address] [address] Oct, [facility] [address] [address] Oct, [facility] [address] [address] Oct, Bipolar I disorder, most recent episode (or current) mixed, unspecified 296.60 [facility] [address] [address] Sep, Diabetes 250.00 [facility] [address] [address] Sep, Bipolar I disorder, most recent episode (or current) mixed, unspecified 296.60 [facility] [address] [address] Sep, [facility] [address] [address] Sep, [facility] [address] [address] Sep, Bipolar I disorder, most recent episode (or current) mixed, unspecified 296.60 [facility] [address] [address] Sep, Bipolar I disorder, most recent episode (or current) mixed, unspecified 296.60 [facility] [address] [address] Sep, [facility] [address] [address] Sep, Anxiety 300.00 ; Diabetes 250.00 and Hyp erlipidemia 272.4 [facility] [address] [address] Aug, [facility] [address] [address] Aug, [facility] [address] [address] Aug, [facility] [address] [address] Aug, Bipolar I disorder, most recent episode (or current) mixed, unspecified 296.60 [facility] [address] [address] Aug, Generalized anxiety disorder 300.02 and Bipolar II disorder 296.89 [facility] [address] [address] July, Bipolar I disorder, most recent episode (or current) mixed, unspecified 296.60 [facility] [address] [address] July, Cough 786.2 [facility] [address] [address] July, Bipolar I disorder, most recent episode (or current) mixed, unspecified 296.60 [facility] [address] [address] 30 Jun, 2014 Diabetes 250.00 [facility] [place] [facility] [address] [id number] [place] [address] 14 Jun, 2014 [facility] [place] [facility] [address] [id number] [place] [address] 13 Jun, 2014 [facility] [place] [facility] [address] [id number] [place] [address] 24 May, 2014 [facility] [place] [facility] [address] [id number] [place] [address] 24 May, 2014 [facility] [place] [facility] [address] [id number] [place] [address] 10 May, 2014 [facility] [place] [facility] [address] [id number] [place] [address] 10 May, 2014 [facility] [place] [facility] [address] [id number] [place] [address] May, [facility] [place] [facility] [address] [id number] [place] [address] May, [facility] [place] [facility] [address] [id number] [place] [address] Apr, [facility] [place] [facility] [address] [id number] [place] [address] 20 Apr, 2014 [facility] [place] [facility] [address] [id number] [place] [address] 11 Apr, 2014 [facility] [place] [facility] [address] [id number] [place] [address] Apr, 2014 [facility] [place] [facility] [address] [id number] [place] [address] 10 Apr, 2014 [facility] [place] [facility] [address] [id number] [place] [address] 10 Apr, 2014 [facility] [place] [facility] [address] [id number] [place] [address] 05 Apr, 2014 [facility] [place] [facility] [address] [id number] [place] [address] Apr, [facility] [place] [facility] [address] [facility] [id number] [place] [address] Mar, [facility] [place] [facility] [address] [facility] [id number] [place] [address] Mar, [facility] [place] [facility] [address] [id number] [place] [address] Mar, [facility] [place] [facility] [address] [id number] [place] [address] Mar, [facility] [place] [facility] [address] [facility] [id number] [place] [address] Mar, [facility] [place] [facility] [address] [id number] [place] [address] Mar, [facility] [place] [facility] [address] [id number] [place] [address] Mar, [facility] [place] [facility] [address] [id number] [place] [address] Mar, [facility] [place] [facility] [address] [id number] [place] [address] Feb, [facility] [place] [facility] [address] [id number] [place] [address] Feb, [facility] [place] [facility] [address] [id number] [place] [address] Feb, [facility] [place] [facility] [address] [id number] [place] [address] Feb, [facility] [place] [facility] [address] [id number] [place] [address] Feb, [facility] [place] [facility] [address] [id number] [place] [address] Feb, [facility] [place] [facility] [address] [id number] [place] [address] Feb, [facility] [place] [facility] [address] [id number] [place] [address] Feb, [facility] [place] [facility] [address] [id number] [place] [address] Feb, [facility] [place] [facility] [address] [id number] [place] [address] Feb, [facility] [place] [facility] [address] [id number] [place] [address] Jan, [facility] [place] [facility] [address] [id number] [place] [address] Jan, [facility] [place] [facility] [address] [id number] [place] [address] Jan, [facility] [place] [facility] [address] [id number] [place] [address] Jan, [facility] [place] [facility] [address] [id number] [place] [address] Jan, [facility] [place] [facility] [address] [id number] [place] [address] Jan, [facility] [place] [facility] [address] [id number] [place] [address] Jan, [facility] [place] [facility] [address] [id number] [place] [address] Jan, [facility] [place] [facility] [address] [id number] [place] [address] Jan, [facility] [place] [facility] [address] [id number] [place] [address] Jan, [facility] [place] [facility] [address] [id number] [place] [address] Jan, [facility] [place] [facility] [address] [id number] [place] [address] Jan, [facility] [place] [facility] [address] [id number] [place] [address] Jan, [facility] [place] [facility] [address] [id number] [place] [address] Jan, [facility] [place] [facility] [address] [id number] [place] [address] Jan, [facility] [place] [facility] [address] [id number] [place] [address] Dec, 2013 [facility] [place] [facility] [address] [id number] [place] [address] 20 Dec, 2013 [facility] [place] [facility] [address] [id number] [place] [address] 16 Dec, 2013 [facility] [place] [facility] [address] [id number] [place] [address] 16 Dec, 2013 [facility] [place] [facility] [address] [id number] [place] [address] Dec, 2013 [facility] [place] [facility] [address] [id number] [place] [address] 09 Dec, 2013 [facility] [place] [facility] [address] [id number] [place] [address] 07 Dec, 2013 [facility] [place] [facility] [address] [id number] [place] [address] 07 Dec, 2013 [facility] [place] [facility] [address] [id number] [place] [address] 25 Sep, 2013 [facility] [place] [facility] [address] [id number] [place] [address] 25 Sep, 2013 [facility] [place] [facility] [address] [id number] [place] [address] 10 Sep, 2013 [facility] [place] [facility] [address] [id number] [place] [address] 10 Sep, 2013 [facility] [place] [facility] [address] [id number] [place] [address] 08 Sep, 2013 [facility] [place] [facility] [address] [id number] [place] [address] 08 Sep, 2013 [facility] [place] [facility] [address] [id number] [place] [address] 08 Sep, 2013 [facility] [place] [facility] [address] [id number] [place] [address] 08 Sep, 2013 [facility] [place] [facility] [address] [id number] [place] [address] 08 Sep, 2013 [facility] [place] [facility] [address] [id number] [place] [address] 08 Nov, 2013 [facility] [place] [facility] [address] [facility] [id number] [place] [address] 04 Nov, 2013 [facility] [place] [facility] [address] [facility] [id number] [facility] [address] 04 Nov, 2013 [facility] [place] [facility] [address] [id number] [place] [address] 03 Nov, 2013 [facility] [place] [facility] [address] [facility] [id number] [place] [address] Nov, 2013 [facility] [place] [facility] [address] [id number] [place] [address] Nov, 2013 [facility] [place] [facility] [address] [id number] [place] [address] Oct, [facility] [place] [facility] [address] [id number] [place] [address] Oct, [facility] [place] [facility] [address] [facility] [id number] [place] [address] Oct, [facility] [place] [facility] [address] [id number] [place] [address] Oct, [facility] [place] [facility] [address] [id number] [place] [address] Oct, [facility] [place] [facility] [address] [id number] [place] [address] Oct, [facility] [place] [facility] [address] [facility] [id number] [place] [address] Oct, [facility] [place] [facility] [address] [id number] [place] [address] Oct, [facility] [place] [facility] [address] [facility] [id number] [place] [address] Oct, [facility] [place] [facility] [address] [id number] [place] [address] Oct, [facility] [place] [facility] [address] [facility] [id number] [place] [address] Oct, [facility] [place] [facility] [address] [id number] [place] [address] Oct, [facility] [place] [facility] [address] [facility] [id number] [place] [address] Oct, [facility] [place] [facility] [address] [id number] [place] [address] Oct, [facility] [place] [facility] [address] [facility] [id number] [place] [address] Sep, [facility] [place] [facility] [address] [id number] [place] [address] Sep, [facility] [place] [facility] [address] [id number] [place] [address] Sep, [facility] [place] [facility] [address] [id number] [place] [address] Sep, [facility] [place] [facility] [address] [id number] [place] [address] Sep, [facility] [place] [facility] [address] [id number] [place] [address] Sep, [facility] [place] [facility] [address] [id number] [place] [address] Sep, [facility] [place] [facility] [address] [id number] [place] [address] Sep, [facility] [place] [facility] [address] [id number] [place] [address] Aug, [facility] [place] [facility] [address] [facility] [id number] [place] [address] Aug, [facility] [place] [facility] [address] [id number] [place] [address] Aug, [facility] [place] [facility] [address] [id number] [place] [address] Aug, [facility] [place] [facility] [address] [id number] [place] [address] Aug, [facility] [place] [facility] [address] [id number] [place] [address] Aug, [facility] [place] [facility] [address] [id number] [place] [address] Aug, [facility] [place] [facility] [address] [id number] [place] [address] Aug, [facility] [place] [facility] [address] [id number] [place] [address] July, [facility] [place] [facility] [address] [id number] [place] [address] July, [facility] [place] [facility] [address] [id number] [place] [address] July, [facility] [place] [facility] [address] [id number] [place] [address] July, [facility] [place] [facility] [address] [id number] [place] [address] July, [facility] [place] [facility] [address] [id number] [place] [address] July, [facility] [place] [facility] [address] [id number] [place] [address] July, [facility] [place] [facility] [address] [id number] [place] [address] July, [facility] [place] [facility] [address] [id number] [place] [address] Jun, [facility] [place] [facility] [address] [id number] [place] [address] Jun, [facility] [place] [facility] [address] [id number] [place] [address] Jun, [facility] [place] [facility] [address] [id number] [place] [address] Jun, [facility] [place] [facility] [address] [id number] [place] [address] Jun, [facility] [place] [facility] [address] [id number] [place] [address] 17 Jun, 2013 [facility] [place] [facility] [address] [facility] [id number] [place] [address] Jun, [facility] [place] [facility] [address] [facility] [id number] [place] [address] Jun, [facility] [place] [facility] [address] [id number] [place] [address] Jun, [facility] [place] [facility] [address] [facility] [id number] [facility] [address] Jun, [facility] [address] [facility] [id number] [facility] [address] Jun, [facility] [address] [id number] [facility] [address] Jun, [facility] [address] [id number] [place] [address] May, [facility] [address] [id number] [facility] [address] May, [facility] [address] [facility] [id number] [place] [address] May, [facility] [address] [id number] [place] [address] May, [facility] [address] [id number] [place] [address] May, [facility] [address] [id number] [place] [address] May, [facility] [address] [facility] [id number] [place] [address] May, [facility] [address] [facility] [id number] [place] [address] May, [facility] [address] [id number] [place] [address] May, [facility] [address] [id number] [place] [address] May, [facility] [address] [id number] [place] [address] May, [facility] [address] [facility] [id number] [place] [address] May, [facility] [address] [facility] [id number] [place] [address] May, [facility] [address] [id number] [place] [address] May, [facility] [address] [facility] [id number] [place] [address] Apr, [facility] [address] [facility] [id number] [place] [address] Apr, [facility] [address] [id number] [place] [address] Apr, [facility] [address] [id number] [place] [address] Apr, [facility] [address] [id number] [place] [address] Apr, [facility] [address] [id number] [place] [address] Apr, [facility] [address] [id number] [place] [address] Mar, [facility] [address] [id number] [place] [address] Mar, [facility] [address] [id number] [place] [address] Mar, [facility] [address] [facility] [id number] [place] [address] Mar, [facility] [address] [id number] [place] [address] Mar, [facility] [address] [id number] [place] [address] Mar, [facility] [address] [id number] [place] [address] Mar, [facility] [address] [id number] [place] [address] Mar, [facility] [address] [id number] [place] [address] Mar, [facility] [address] [id number] [place] [address] Mar, [facility] [address] [id number] [place] [address] Mar, [facility] [address] [id number] [place] [address] Mar, [facility] [address] [id number] [place] [address] Mar, [facility] [address] [id number] [place] [address] Mar, [facility] [address] [id number] [place] [address] Feb, [facility] [address] [id number] [place] [address] Feb, [facility] [address] [id number] [place] [address] Feb, [facility] [address] [id number] [place] [address] Feb, [facility] [address] [id number] [place] [address] Feb, [facility] [address] [id number] [place] [address] Feb, [facility] [address] [id number] [place] [address] Feb, [facility] [address] [id number] [place] [address] Feb, [facility] [address] [id number] [place] [address] Feb, [facility] [address] [id number] [place] [address] 09 Feb, 2012 [facility] [address] [facility] [id number] [place] [address] 09 Feb, 2012 [facility] [address] [id number] [place] [address] Feb, 2012 [facility] [address] [id number] [place] [address] Feb, 2012 [facility] [address] [id number] [place] [address] Feb, 2012 [facility] [address] [id number] [place] [address] Feb, 2012 [facility] [address] [id number] [place] [address] Feb, 2012 [facility] [address] [id number] [place] [address] 24 Dec, 2012 [facility] [address] [id number] [place] [address] 24 Dec, 2012 [facility] [address] [id number] [place] [address] 16 Dec, 2012 [facility] [address] [id number] [place] [address] 16 Dec, 2012 [facility] [address] [id number] [place] [address] 16 Dec, 2012 [facility] [address] [id number] [place] [address] 16 Dec, 2012 [facility] [address] [id number] [place] [address] 14 Dec, 2012 [facility] [address] [id number] [place] [address] 14 Dec, 2012 [facility] [address] [id number] [place] [address] 10 Dec, 2012 [facility] [address] [id number] [place] [address] 10 Dec, 2012 [facility] [address] [facility] [id number] [facility] [address] 10 Dec, 2012 [facility] [address] [facility] [id number] [place] [address] 10 Dec, 2012 [facility] [address] [facility] [id number] [place] [address] Dec, [facility] [address] [id number] [place] [address] 25 Nov, 2012 [facility] [address] [facility] [id number] [place] [address] 20 Nov, 2012 [facility] [address] [facility] [id number] [place] [address] 18 Nov, 2012 [facility] [address] [id number] [place] [address] 16 Nov, 2012 [facility] [address] [id number] [place] [address] 12 Nov, 2012 [facility] [address] [id number] [place] [address] 11 Nov, 2012 [facility] [address] [id number] [place] [address] 05 Nov, 2012 [facility] [address] [id number] [place] [address] 15 Oct, 2012 [facility] [address] [id number] [place] [address] Oct, [facility] [address] [id number] [place] [address] Sep, [facility] [address] [facility] [id number] [place] [address] Sep, [facility] [address] [id number] [place] [address] Sep, [facility] [address] [id number] [place] [address] Sep, [facility] [address] [id number] [place] [address] 15 Sep, 2012 [facility] [address] [facility] [id number] [place] [address] 09 Sep, 2012 [facility] [address] [id number] [place] [address] 08 Sep, 2012 [facility] [address] [id number] [place] [address] Aug, [facility] [address] [id number] [place] [address] Aug, [facility] [address] [facility] [id number] [place] [address] 16 Aug, 2012 [facility] [address] [id number] [place] [address] Aug, [facility] [address] [id number] [place] [address] Aug, [facility] [address] [id number] [place] [address] Aug, [facility] [address] [id number] [place] [address] Aug, [facility] [address] [id number] [place] [address] Aug, [facility] [address] [id number] [place] [address] July, [facility] [address] [id number] [place] [address] July, [facility] [address] [id number] [place] [address] July, [facility] [address] [id number] [place] [id number] July, [facility] [address] [id number] [place] [address] July, [facility] [address] [id number] [place] [address] Jun, [facility] [address] [id number] [place] [address] 26 May, 2012 [facility] [address] [id number] [place] [address] 14 May, 2012 [facility] [address] [id number] [place] [address] 04 May, 2012 [facility] [address] [id number] [place] [address] Apr, [facility] [address] [id number] [place] [address] 08 Apr, 2012 [facility] [address] [id number] [place] [address] Apr, [facility] [address] [id number] [place] [address] Mar, [facility] [address] [id number] [place] [address] Mar, [facility] [address] [id number] [place] [address] Mar, [facility] [address] [id number] [place] [address] Mar, [facility] [address] [id number] [place] [address] Mar, [facility] [address] [id number] [place] [address] Mar, [facility] [address] [id number] [place] [address] Mar, [facility] [address] [id number] [place] [address] Feb, [facility] [address] [id number] [place] [address] Feb, [facility] [address] [id number] [place] [address] Feb, [facility] [address] [id number] [place] [address] Feb, [facility] [address] [id number] [place] [address] Feb, [facility] [address] [id number] [place] [address] Feb, [facility] [address] [id number] [place] [address] Feb, [facility] [address] [id number] [place] [address] Feb, [facility] [address] [id number] [place] [address] Jan, [facility] [address] [id number] [place] [address] Jan, [facility] [address] [id number] [place] [address] Jan, [facility] [address] [id number] [place] [address] Jan, [facility] [address] [id number] [place] [address] Jan, [facility] [address] [id number] [place] [address] Jan, [facility] [address] [id number] [place] [address] Jan, [facility] [address] [id number] [place] [address] Jan, [facility] [address] [id number] [place] [address] Jan, [facility] [address] [id number] [place] [address] Jan, [facility] [id number] [place] [address] Jan, [facility] [address] [id number] [place] [address] Jan, [facility] [address] [id number] [place] [address] Jan, [facility] [address] [id number] [place] [address] Jan, [facility] [address] [id number] [place] [address] Jan, [facility] [address] [id number] [place] [address] Jan, [facility] [address] [id number] [place] [address] Dec, [facility] [address] [id number] [place] [address] Dec, [facility] [address] [id number] [place] [address] Dec, [facility] [address] [id number] [place] [address] Dec, [facility] [address] [id number] [place] [address] Dec, [facility] [address] [id number] [place] [address] Dec, [facility] [address] [id number] [place] [address] Dec, [facility] [address] [id number] [place] [address] Dec, [facility] [address] [id number] [place] [address] 08 Dec, 2011 [facility] [address] [id number] [place] [address] 05 Dec, 2011 [facility] [address] [id number] [place] [address] 18 Nov, 2011 [facility] [address] [id number] [place] [address] 13 Nov, 2011 [facility] [address] [id number] [place] [address] 24 Oct, 2011 [facility] [address] [id number] [place] [address] Oct, [facility] [address] [id number] [facility] [address] Oct, [facility] [address] [facility] [id number] [facility] [address] Oct, [facility] [address] [id number] [facility] [address] Oct, [facility] [address] [id number] [facility] [address] Oct, [facility] [address] [facility] [id number] [facility] [address] Oct, [facility] [address] [id number] [place] [address] Sep, [facility] [address] [id number] [place] [address] Aug, [facility] [address] [id number] [place] [address] Aug, [facility] [address] [id number] [place] [address] Aug, [facility] [address] [id number] [place] [address] Aug, [facility] [address] [id number] [place] [address] Aug, [facility] [address] [id number] [place] [address] July, [facility] [address] [id number] [place] [address] July, [facility] [address] [id number] [place] [address] July, [facility] [address] [id number] [facility] [address] Jun, [facility] [address] [id number] [place] [address] Jun, [facility] [address] [id number] [place] [address] 04 Jun, 2011 [facility] [address] [id number] [place] [address] Jun, [facility] [address] [id number] [place] [address] 30 May, 2011 [facility] [address] [id number] [place] [address] 30 May, 2011 [facility] [address] [id number] [place] [address] 29 May, 2011 [facility] [address] [id number] [place] [address] May, [facility] [address] [id number] [place] [address] May, [facility] [address] [id number] [place] [address] May, [facility] [address] [id number] [place] [address] May, [facility] [address] [id number] [place] [address] May, [facility] [address] [id number] [place] [address] May, [facility] [address] [id number] [place] [address] May, [facility] [address] [id number] [place] [address] May, [facility] [address] [id number] [place] [address] May, [facility] [address] [id number] [place] [address] Mar, [facility] [address] [id number] [place] [address] Mar, [facility] [address] [id number] [place] [address] Feb, [facility] [address] [id number] [place] [address] Feb, [facility] [address] [id number] [place] [address] 20 Feb, 2011 [facility] [address] [id number] [place] [address] 15 Feb, 2011 [facility] [address] [id number] [place] [address] Feb, [facility] [address] [id number] [place] [address] Feb, [facility] [address] [id number] [place] [address] Feb, [facility] [address] [id number] [place] [address] Jan, [facility] [address] [id number] [place] [address] Jan, [facility] [address] [id number] [place] [address] Jan, [facility] [address] [id number] [place] [address] Jan, [facility] [address] [id number] [place] [address] Jan, [facility] [address] [id number] [place] [address] Jan, [facility] [address] [id number] [place] [address] Dec, [facility] [address] [id number] [place] [address] Dec, [facility] [address] [id number] [place] [address] Dec, [facility] [address] [id number] [place] [address] July, [facility] [address] [id number] [place] [address] July, [facility] [address] [facility] [id number] [place] [address] Feb, [facility] [address] [id number] [place] [address] Jan, [facility] [address] [id number] [place] [address] Dec, [facility] [address] [id number] [place] [address] Dec, [facility] [address] [id number] [place] [address] Sep, [facility] [address] [id number] [place] [address] Aug, [facility] [address] [id number] [place] [address] Jun, [facility] [address] [id number] [place] [address] Jun, [facility] [address] [id number] [place] [address] Jan, [facility] [address] [id number] [place] [address] Jan, [facility] [address] [id number] [place] [address] Jan, [facility] [address] [id number] [place] [address] Jan, [facility] [address] [id number] [place] [address] 29 Dec, 2008 [facility] [address] [id number] [place] [address] 26 Dec, 2008 [facility] [address] [id number] [place] [address] 15 Dec, 2008 [facility] [address] [id number] [place] [address] 17 Nov, 2008 [facility] [address] [id number] [place] [address] July, [facility] [address] [id number] [place] [address] May, [facility] [address] [id number] [place] [address] Apr, [facility] [address] [id number] [place] [address] Feb, [facility] [address] [id number] [place] [address] Dec, IMMUNIZATIONS No Known Immunizations SOCIAL HISTORY Never Assessed REASON FOR VISIT PLAN OF CARE VITAL SIGNS MEDICATIONS Unknown Medications RESULTS No Results PROCEDURES Procedure Date Ordered Result Body Site PSYTX PT&/FAMILY 45 MINUTES August 01, 2013 INSTRUCTIONS MEDICATIONS ADMINISTERED No Known Medications [...]
--- OUTSIDE RECORDS SUMMARY | 2019-06-22 19:48 | XMS REPORT ---
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 Active 17382385 Problem Irritable bowel syndrome with diarrhea K58.0 Active 995021463 Problem Diabetes E11.9 Active 767281879 Problem Bipolar 1 disorder F31.9 Active 3 39792065 Problem Lumbar radiculopathy M54.16 Active 090165851 Problem Hyperlipidemia, unspecified E78.5 Ac tive 79966843 Problem Acute bilateral low back pain with right-sided sciatica M54.41 Active 535963837 Problem New daily persistent headache G44.52 Active 429085167 Problem Insulin long-term use Z79.4 Active 858639549 Problem Type 2 diabetes mellitus with complication E11.8 Active 948152597 Problem Post laminectomy syndrome M96.1 Acti ve 32883293 Problem Rhinosinusitis J32.9 Active 89341 000 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 Active 819730252 Problem Eye exam normal Z01.00 Active 2438 23440 Problem Type 2 diabetes mellitus with hyperglycemia E11.65 Active 57955779 Problem Lumbago with sciatica, left side M54.42 Active 755804774 Problem Other chronic pain G89.29 Active 8 9911313 Problem Hypertriglyceridemia E78.1 Active [id number] ALLERGIES No Information ENCOUNTERS Encounter Location Date Diagnosis [facility] [address] [id number] [place] [address] May, [facility] [id number] [place] [address] Apr, [facility] [address] [address] Apr, [facility] [id number] [place] [address] Mar, [facility] [address] [address] Mar, Bipolar 1 disorder F31.9 ; Borderline in tellectual functioning R41.83 and Extreme poverty Z59.5 [facility] [address] [address] Mar, Exercise counseling Z71.82 [place] [address] [address] Mar, [facility] [address] [address] Mar, Bipolar disorder, in partial remission, most recent episode manic F31.73 and 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 [facility] [id number] [place] [address] Mar, [facility] [address] [address] Mar, Exercise counseling Z71.82 [place] [id number] [place] [address] Feb, Bipolar 1 disorder F31.9 ; Borderline in tellectual functioning R41.83 and Extreme poverty Z59.5 [facility] [id number] [place] [address] Feb, [facility] [address] [address] Feb, Type 2 diabetes mellitus with complicati on E11.8 [facility] [address] [facility] [id number] [address] [place] [address] Feb, Acute low back pain without sciatica, unspecified back pain laterality M54.5 [facility] [address] [address] Feb, Bipolar 1 disorder F31.9 ; Borderline in tellectual functioning R41.83 and Extreme poverty Z59.5 [facility] [address] [address] Jan, Bipolar 1 disorder F31.9 ; Borderline in tellectual functioning R41.83 and Extreme poverty Z59.5 [facility] [address] [address] Jan, [facility] [address] [address] Jan, Type 2 diabetes mellitus with complicati on E11.8 [place] [address] [address] Jan, Type 2 diabetes mellitus with complicati on E11.8 ; Dysuria R30.0 and Diarrhea, unspecified type R19.7 [facility] [address] [address] Jan, Bipolar 1 disorder F31.9 ; Borderline in tellectual functioning R41.83 and Extreme poverty Z59.5 [facility] [address] [address] Dec, [facility] [address] [address] Dec, [facility] [address] [address] Dec, [facility] [address] [address] Dec, [facility] [address] [address] Dec, Rhinosinusitis J32.9 [facility] [address] [address] Dec, [place] [address] [address] Dec, Bipolar 1 disorder F31.9 ; Borderline in tellectual functioning R41.83 and Extreme poverty Z59.5 [place] [address] [address] Dec, Type 2 diabetes mellitus with complicati on E11.8 and Type 2 diabetes mellitus with hyperglycemia E11.65 [place] [address] [address] Dec, [place] [address] [address] Dec, Type 2 diabetes mellitus with complicati on E11.8 ; Insulin long-term use Z79.4 ; Hyperglycemia R73.9 and Yeast infection B37.9 [place] [address] [address] Dec, Encounter for immunization Z23 [place] [address] [address] Nov, [place] [address] [address] Nov, Bipolar 1 disorder F31.9 ; Borderline in tellectual functioning R41.83 and Extreme poverty Z59.5 [place] [address] [address] Nov, [place] [address] [address] Nov, [place] [address] [address] Nov, Borderline intellectual functioning R41. 83 and Bipolar disorder, in partial remission, most recent episode manic F31.73 [facility] [address] [facility] [id number] [address] [place] [address] Nov, Epigastric abdominal pain R1 0.13 [place] [address] [address] Nov, Bipolar 1 disorder F31.9 ; Borderline in tellectual functioning R41.83 and Extreme poverty Z59.5 [facility] [address] [place] [address] Oct, Dysuria R30.0 and Acute cyst itis without hematuria N30.00 [facility] [id number] [place] [address] Oct, [facility] [address] [address] Oct, [facility] [address] [address] Oct, Bipolar 1 disorder F31.9 ; Borderline in tellectual functioning R41.83 and Extreme poverty Z59.5 [place] [address] [address] Oct, [facility] [address] [address] Oct, [facility] [address] [address] Oct, Bipolar disorder, in partial remission, most recent episode manic F31.73 and 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 [place] [address] [address] Oct, Bipolar 1 disorder F31.9 ; Borderline in tellectual functioning R41.83 and Extreme poverty Z59.5 [facility] [address] [address] Oct, Diarrhea, unspecified type R19.7 [facility] [address] [id number] [place] [id number] Sep, Dental examination Z01.20 and Dental car ies K02.9 [facility] [id number] [place] [address] Sep, Mouth pain K13.79 [facility] [address] [address] Sep, [facility] [address] [address] Sep, Bipolar 1 disorder F31.9 ; Borderline in tellectual functioning R41.83 and Extreme poverty Z59.5 [place] [address] [address] Sep, [facility] [address] [address] Sep, [place] [address] [address] Sep, Diabetes E11.9 ; Hyperglycemia R73.9 ; L eliseo term current use of insulin Z79.4 and Diarrhea, unspecified type R19.7 [place] [address] [address] Sep, [place] [address] [address] Sep, Bipolar 1 disorder F31.9 ; Borderline in tellectual functioning R41.83 and Extreme poverty Z59.5 [place] [address] [address] Sep, [place] [address] [address] Sep, [place] [address] [address] Aug, Bipolar 1 disorder F31.9 ; Borderline in tellectual functioning R41.83 and Extreme poverty Z59.5 [place] [address] [address] Aug, Exercise counseling Z71.82 [place] [address] [address] Aug, Bipolar 1 disorder F31.9 ; Borderline in tellectual functioning R41.83 and Extreme poverty Z59.5 [place] [address] [address] Aug, Borderline intellectual functioning R41. 83 and Bipolar disorder, in partial remission, most recent episode manic F31.73 [facility] [address] [address] Aug, Low back pain M54.5 [facility] [address] [address] Aug, Borderline intellectual functioning R41. 83 and Bipolar disorder, in partial remission, most recent episode manic F31.73 [facility] [address] [address] July, Acute superficial gastritis without hemo rrhage K29.00 ; Low back pain M54.5 and Other chronic pain G89.29 [place] [address] [address] July, [place] [address] [address] July, [facility] [address] [address] Jun, [facility] [address] [facility] [id number] [address] [place] [address] Jun, Bilateral lower extremity ed epi R60.0 [facility] [address] [address] Jun, Borderline intellectual functioning R41. 83 and Bipolar disorder, in partial remission, most recent episode manic F31.73 [facility] [address] [address] Jun, [facility] [address] [address] May, Bronchitis J40 [facility] [address] [address] May, Screening for breast cancer Z12.31 and E ncounter for immunization Z23 [place] [address] [address] May, Bipolar 1 disorder F31.9 ; Borderline in tellectual functioning R41.83 and Extreme poverty Z59.5 [place] [address] [address] 11 Apr, 2018 [place] [address] [address] 07 Apr, 2018 Bipolar 1 disorder F31.9 ; Borderline in tellectual functioning R41.83 and Extreme poverty Z59.5 [place] [address] [address] 05 Apr, 2018 Irritable bowel syndrome with diarrhea K 58.0 and Dental abscess K04.7 [place] [address] [address] Mar, [place] [address] [address] Mar, [place] [address] [address] Mar, Bipolar 1 disorder F31.9 ; Borderline in tellectual functioning R41.83 and Extreme poverty Z59.5 [place] [address] [address] Mar, Hypertriglyceridemia E78.1 [place] [address] [address] Mar, Borderline intellectual functioning R41. 83 and Bipolar disorder, in partial remission, most recent episode manic F31.73 [place] [address] [address] Mar, Bipolar 1 disorder F31.9 ; Borderline in tellectual functioning R41.83 and Extreme poverty Z59.5 [place] [address] [address] 28 Feb, 2018 Generalized abdominal pain R10.84 and Di arrhea, unspecified type R19.7 [place] [address] [address] Feb, [place] [address] [address] Feb, Myalgia M79.10 and Nausea R11.0 [place] [address] [address] Feb, Bipolar 1 disorder F31.9 ; Borderline in tellectual functioning R41.83 and Extreme poverty Z59.5 [place] [address] [address] Feb, [place] [address] [address] Feb, Diabetes E11.9 ; Hyperglycemia R73.9 and Diarrhea, unspecified R19.7 [place] [address] [address] Feb, Diarrhea, unspecified type R19.7 ; Abdom inal pain R10.9 and Encounter for immunization Z23 [place] [address] [address] Jan, Bipolar 1 disorder F31.9 ; Borderline in tellectual functioning R41.83 and Extreme poverty Z59.5 [place] [address] [address] Dec, Bipolar 1 disorder F31.9 ; Borderline in tellectual functioning R41.83 and Extreme poverty Z59.5 [place] [address] [address] Nov, [place] [address] [address] Nov, Hypertriglyceridemia E78.[address] [address] Nov, Bipolar 1 disorder F31.9 ; Borderline in tellectual functioning R41.83 and Extreme poverty Z59.5 [place] [address] [address] Nov, Type 2 diabetes mellitus with complicati on E11.8 [place] [address] [address] 18 Nov, 2017 Borderline intellectual functioning R41. 83 and Bipolar disorder, in partial remission, most recent episode manic F31.73 [place] [address] [address] 12 Nov, 2017 Type 2 diabetes mellitus with complicati on E11.8 [place] [address] [address] 11 Nov, 2017 Bipolar 1 disorder F31.9 ; Borderline in tellectual functioning R41.83 and Extreme poverty Z59.5 [place] [address] [address] Nov, Type 2 diabetes mellitus with complicati on E11.8 ; Pain of left upper arm M79.622 ; Pain in right upper arm M79.621 ; Hyperglycemia R73.9 ; Lumbago with sciatica, left side M54.42 and Other chronic pain G89.29 [place] [address] [address] Oct, Bipolar 1 disorder F31.9 ; Borderline in tellectual functioning R41.83 and Extreme poverty Z59.5 [place] [address] [address] Oct, Type 2 diabetes mellitus with hyperglyce didi E11.65 ; residential current use of insulin Z79.4 and Other acute gastritis without hemorrhage K29.00 [place] [address] [address] Oct, Bipolar 1 disorder F31.9 ; Borderline in tellectual functioning R41.83 and Extreme poverty Z59.5 [place] [address] [address] Sep, Diarrhea, unspecified R19.7 and Vomiting , unspecified R11.10 [place] [address] [address] Aug, Type 2 diabetes mellitus with complicati on E11.8 [facility] [address] [address] Aug, [facility] [address] [address] Aug, Bipolar 1 disorder F31.9 ; Borderline in tellectual functioning R41.83 and Extreme poverty Z59.5 [place] [address] [address] Aug, Borderline intellectual functioning R41. 83 and Bipolar disorder, in partial remission, most recent episode manic F31.73 [place] [address] [address] Aug, Bipolar 1 disorder F31.9 [place] [address] [address] Aug, [place] [address] [address] Aug, [place] [address] [address] Aug, Bipolar 1 disorder F31.9 ; Borderline in tellectual functioning R41.83 and Extreme poverty Z59.5 [place] [address] [address] July, Type 2 diabetes mellitus with complicati on E11.8 [place] [address] [address] July, Bipolar 1 disorder F31.9 ; Borderline in tellectual functioning R41.83 and Extreme poverty Z59.5 [place] [address] [address] Jun, Bipolar 1 disorder F31.9 ; Borderline in tellectual functioning R41.83 and Extreme poverty Z59.5 [place] [address] [address] Jun, Bipolar 1 disorder F31.9 ; Borderline in tellectual functioning R41.83 and Extreme poverty Z59.5 [place] [address] [address] Jun, Bipolar 1 disorder F31.9 ; Borderline in tellectual functioning R41.83 and Extreme poverty Z59.5 [place] [address] [address] May, Urinary tract infection without hematuri a, site unspecified N39.0 [place] [address] [address] May, Bipolar 1 disorder F31.9 ; Borderline in tellectual functioning R41.83 and Extreme poverty Z59.5 [place] [address] [address] Apr, Diabetes E11.9 and Breast cancer screeni ng Z12.31 [place] [address] [address] Apr, Bipolar 1 disorder F31.9 and 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 [place] [address] [address] Mar, Bipolar 1 disorder F31.9 ; Borderline in tellectual functioning R41.83 and Extreme poverty Z59.5 [place] [address] [address] Mar, New daily persistent headache G44.52 ; L eg pain 729.5 and History of carpal tunnel release Z98.890 [place] [address] [address] Mar, Hyperlipidemia, unspecified E78.5 [place] [address] [address] Mar, Bipolar 1 disorder F31.9 ; Borderline in tellectual functioning R41.83 and Extreme poverty Z59.5 [place] [address] [address] Feb, Bipolar 1 disorder F31.9 ; Borderline in tellectual functioning R41.83 and Extreme poverty Z59.5 [place] [address] [address] Feb, Diabetes E11.9 [place] [address] [address] Feb, Viral syndrome B34.9 [place] [address] [address] Jan, Other viral agents as the cause of disea ses classified elsewhere B97.89 and Acute upper respiratory infection, unspecified J06.9 [place] [address] [address] Jan, Bipolar 1 disorder F31.9 and 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 [place] [address] [address] Jan, Bipolar 1 disorder F31.9 ; Borderline in tellectual functioning R41.83 and Extreme poverty Z59.5 [place] [address] [address] Dec, Diabetes E11.9 [place] [address] [address] Dec, Diabetes E11.9 and Encounter for immuniz ation Z23 [place] [address] [address] Dec, Bipolar 1 disorder F31.9 ; Borderline in tellectual functioning R41.83 and Extreme poverty Z59.5 [place] [address] [address] Dec, Back pain M54.9 [place] [address] [address] Nov, [place] [address] [address] Nov, Bipolar 1 disorder F31.9 ; Borderline in tellectual functioning R41.83 and Extreme poverty Z59.5 [place] [address] [address] Nov, Bipolar 1 disorder F31.9 ; Borderline in tellectual functioning R41.83 and Extreme poverty Z59.5 [place] [address] [address] Oct, Borderline intellectual functioning R41. 83 and Bipolar 1 disorder F31.9 [place] [address] [address] Oct, Bipolar 1 disorder F31.9 ; Borderline in tellectual functioning R41.83 and Extreme poverty Z59.5 [place] [address] [address] Oct, Back pain M54.9 [place] [address] [address] Oct, Borderline intellectual functioning R41. 83 and Type 2 diabetes mellitus with complication E11.8 [place] [address] [address] Sep, Bipolar 1 disorder F31.9 ; Borderline in tellectual functioning R41.83 and Extreme poverty Z59.5 [place] [address] [address] Sep, Borderline intellectual functioning R41. 83 and Bipolar 1 disorder F31.9 [place] [address] [address] Sep, Bipolar 1 disorder F31.9 ; Borderline in tellectual functioning R41.83 and Extreme poverty Z59.5 [place] [address] [address] Aug, Diabetes E11.9 ; Hyperlipidemia, unspeci fied E78.5 and Lumbar radiculopathy M54.16 [place] [address] [address] Aug, Bipolar 1 disorder F31.9 ; Borderline in tellectual functioning R41.83 and Extreme poverty Z59.5 [facility] [id number] [place] [address] Aug, [facility] [id number] [place] [address] Aug, [facility] [id number] [place] [address] Aug, [facility] [id number] [place] [address] July, [facility] [id number] [place] [address] July, Acute bilateral low back pain with right -sided sciatica M54.41 [place] [id number] [place] [address] July, Bipolar 1 disorder F31.9 ; Borderline in tellectual functioning R41.83 and Extreme poverty Z59.5 [place] [id number] [place] [address] July, Back pain M54.9 and Diabetes E11.9 [place] [id number] [place] [address] Jun, Bipolar 1 disorder F31.9 ; Borderline in tellectual functioning R41.83 and Extreme poverty Z59.5 [place] [id number] [place] [address] Jun, Bipolar 1 disorder F31.9 ; Borderline in tellectual functioning R41.83 and Extreme poverty Z59.5 [place] [id number] [place] [address] May, Visit for pelvic exam Z01.419 ; Acute va ginitis N76.0 and Diabetes E11.9 [facility] [id number] [place] [address] May, Bipolar 1 disorder F31.9 ; Borderline in tellectual functioning R41.83 and Extreme poverty Z59.5 [place] [address] [address] 08 May, 2016 [facility] [address] [address] May, [place] [address] [address] May, Bipolar 1 disorder F31.9 ; Borderline in tellectual functioning R41.83 and Extreme poverty Z59.5 [place] [address] [address] May, Hyperlipidemia, unspecified E78.5 [place] [address] [address] Apr, Breast cancer screening Z12.39 [place] [address] [address] Mar, [place] [address] [address] Mar, Bipolar disorder, current episode mixed, unspecified F31.60 [place] [address] [address] Mar, Bipolar 1 disorder F31.9 ; Borderline in tellectual functioning R41.83 and Extreme poverty Z59.5 [place] [address] [address] Feb, Acute nasopharyngitis J00 [place] [address] [address] Feb, Dental examination Z01.20 [place] [address] [address] Feb, Dental cavities K02.9 and Chronic period ontitis, unspecified K05.30 [place] [address] [address] Feb, Low back pain M54.5 and Extreme poverty Z59.5 [place] [address] [address] Feb, [place] [address] [address] 05 Feb, 2016 Routine gynecological examination V72.31 ; Breast cancer screening Z12.39 and Herpes simplex type [address] [address] 02 Feb, 2016 Diabetes E11.9 [place] [address] Feb, Encounter for dental examination and leti aning without abnormal findings Z01.[address] [address] Jan, Hyperlipidemia, unspecified E78.[address] [address] Jan, Bipolar 1 disorder F31.9 ; Borderline in tellectual functioning R41.83 and Extreme poverty Z59.[address] [address] 18 Jan, 2016 Diabetes E11.[address] [address] 17 Jan, 2016 Diabetes E11.[address] [address] 14 Dec, 2015 Bipolar 1 disorder F31.9 ; Borderline in tellectual functioning R41.83 and Extreme poverty Z59.[address] [address] 13 Dec, 2015 Bipolar disorder, current episode mixed, unspecified F31.60 and Borderline intellectual functioning R41.[address] [address] 16 Nov, 2015 Bipolar 1 disorder F31.9 ; Borderline in tellectual functioning R41.83 ; Extreme poverty Z59.5 and Non compliance with medical treatment Z91.[address] [address] Oct, [place] [address] [address] Oct, Dental caries K02.9 [place] [address] [address] Oct, Low back pain M54.5 and Other chronic pa in G89.29 [place] [address] [address] Oct, Bipolar 1 disorder F31.9 ; Borderline in tellectual functioning R41.83 ; Extreme poverty Z59.5 and Non compliance with medical treatment Z91.19 [place] [address] [address] Oct, [place] [address] [address] Oct, [place] [address] [address] Oct, Dental examination Z01.20 [place] [address] [address] Oct, Bipolar 1 disorder F31.9 ; Borderline in tellectual functioning R41.83 ; Extreme poverty Z59.5 and Non compliance with medical treatment Z91.19 [place] [address] [address] Oct, [place] [address] [address] Sep, Type 2 diabetes mellitus with complicati on E11.8 [place] [address] [address] Sep, Bipolar disorder, current episode mixed, unspecified F31.60 [place] [address] [address] Sep, Bipolar disorder, current episode mixed, unspecified F31.60 [place] [address] [address] Sep, Bipolar disorder, in partial remission, most recent episode manic F31.73 ; 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 ; Extreme poverty Z59.5 and Non compliance with medical treatment Z91.19 [place] [address] [address] Aug, Bipolar disorder, in partial remission, most recent episode manic F31.73 ; 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 ; Extreme poverty Z59.5 and Non compliance with medical treatment Z91.19 [place] [address] [address] Aug, Bipolar disorder, in partial remission, most recent episode manic F31.73 ; 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 ; Extreme poverty Z59.5 and Non compliance with medical treatment Z91.19 [place] [address] [address] Aug, [place] [address] [address] July, Bipolar disorder, in partial remission, most recent episode manic F31.73 ; 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 ; Extreme poverty Z59.5 and Non compliance with medical treatment Z91.19 [place] [address] [address] July, Bipolar disorder, current episode mixed, unspecified F31.60 [place] [address] [address] July, Bipolar disorder, in partial remission, most recent episode manic F31.73 ; 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 ; Extreme poverty Z59.5 and Non compliance with medical treatment Z91.19 [place] [address] [address] July, residential current use of opiate analgesi c Z79.891 and Chronic pain G89.29 [place] [address] [address] Jun, 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 and Bipolar 1 disorder F31.9 [place] [address] [address] Jun, [place] [address] [address] Jun, [facility] [address] [address] Jun, [place] [address] [address] Jun, Bipolar disorder, in partial remission, most recent episode manic F31.73 ; 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 and Non compliance with medical treatment Z91.19 [place] [address] [address] May, Bipolar disorder, in partial remission, most recent episode manic F31.73 ; 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 and Non compliance with medical treatment Z91.19 [place] [address] [address] May, Bipolar disorder, in partial remission, most recent episode manic F31.73 [place] [address] [address] May, Diabetes E11.9 and Chronic pain G89.29 [place] [address] [address] May, [place] [address] [address] May, Bipolar disorder, in partial remission, most recent episode manic F31.73 ; Non compliance with medical treatment Z91.19 and 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 [place] [address] [address] May, Type 2 diabetes mellitus with complicati on E11.8 and Back pain M54.9 [place] [address] [address] May, Bipolar disorder, in partial remission, most recent episode manic F31.73 and 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 [place] [address] [address] 24 Apr, 2015 [place] [address] [address] Apr, [place] [address] [address] 10 Apr, 2015 [place] [address] [address] 09 Apr, 2015 Diabetes E11.9 ; Irritable bowel syndrom e with diarrhea K58.0 and Lumbar radiculopathy M54.16 [place] [address] [address] 02 Apr, 2015 Breast screening Z12.39 [place] [address] [address] 02 Apr, 2015 Bipolar disorder, in partial remission, most recent episode manic F31.73 ; Non compliance with medical treatment Z91.19 and 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 [place] [address] [address] Mar, Edema, unspecified type R60.9 and Type 2 diabetes mellitus with complication E11.8 [place] [address] [address] Mar, Bipolar disorder, in partial remission, most recent episode manic F31.73 ; Non compliance with medical treatment Z91.19 ; 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 and Extreme poverty Z59.5 [place] [address] [address] 14 Mar, 2015 Bipolar disorder, current episode mixed, unspecified F31.60 ; 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 ; Extreme poverty Z59.5 and Generalized anxiety disorder F41.1 [place] [address] [address] 12 Mar, 2015 Bipolar disorder, in partial remission, most recent episode manic F31.73 ; 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 and Extreme poverty Z59.5 [place] [address] [address] 14 Feb, 2015 Bipolar disorder, in partial remission, most recent episode manic F31.73 ; 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 and Extreme poverty Z59.5 [place] [address] [address] Feb, Bipolar disorder, in partial remission, most recent episode manic F31.73 ; 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 and Extreme poverty Z59.5 [place] [address] [address] Feb, [place] [address] [address] Jan, Type 2 diabetes mellitus with complicati on E11.8 and Petechiae R23.3 [place] [address] [address] Jan, Type 2 diabetes mellitus with complicati on E11.8 ; Edema, unspecified R60.9 ; Petechiae R23.3 and Diabetes E11.9 [place] [address] [address] Jan, Bipolar disorder, in partial remission, most recent episode manic F31.73 ; 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 and Extreme poverty Z59.5 [place] [address] [address] Jan, Bipolar disorder, in partial remission, most recent episode manic F31.73 ; 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 and Extreme poverty Z59.5 [place] [address] [address] Dec, Bipolar disorder, in partial remission, most recent episode manic F31.73 [place] [address] [address] Dec, Edema, due to unspecified malnutrition t ype, unspecified edema R60.9 and Essential hypertension I10 [place] [address] [address] Dec, Bipolar disorder, in partial remission, most recent episode manic F31.73 [facility] [address] [address] Nov, Bipolar I disorder, most recent episode (or current) mixed, unspecified 296.60 [facility] [address] [address] Nov, Stress incontinence, female 625.6 ; Back pain 724.5 and Leg pain 729.5 [facility] [address] [address] Nov, Generalized anxiety disorder 300.02 and Bipolar II disorder 296.89 [facility] [address] [address] Nov, Bipolar I disorder, most recent episode (or current) mixed, unspecified 296.60 [facility] [address] [address] Oct, [facility] [address] [address] Oct, [facility] [address] [address] Oct, [facility] [address] [address] Oct, Bipolar I disorder, most recent episode (or current) mixed, unspecified 296.60 [facility] [address] [address] Sep, Diabetes 250.00 [facility] [address] [address] Sep, Bipolar I disorder, most recent episode (or current) mixed, unspecified 296.60 [facility] [address] [address] Sep, [facility] [address] [address] Sep, [facility] [address] [address] Sep, Bipolar I disorder, most recent episode (or current) mixed, unspecified 296.60 [facility] [address] [address] Sep, Bipolar I disorder, most recent episode (or current) mixed, unspecified 296.60 [facility] [address] [address] Sep, [facility] [address] [address] Sep, Anxiety 300.00 ; Diabetes 250.00 and Hyp erlipidemia 272.4 [facility] [address] [address] Aug, [facility] [address] [address] Aug, [facility] [address] [address] Aug, [facility] [address] [address] Aug, Bipolar I disorder, most recent episode (or current) mixed, unspecified 296.60 [facility] [address] [address] Aug, Generalized anxiety disorder 300.02 and Bipolar II disorder 296.89 [facility] [address] [address] July, Bipolar I disorder, most recent episode (or current) mixed, unspecified 296.60 [facility] [address] [address] July, Cough 786.2 [facility] [address] [address] July, Bipolar I disorder, most recent episode (or current) mixed, unspecified 296.60 [facility] [address] [address] 30 Jun, 2014 Diabetes 250.00 [facility] [place] [facility] [address] [id number] [place] [address] 14 Jun, 2014 [facility] [place] [facility] [address] [id number] [place] [address] 13 Jun, 2014 [facility] [place] [facility] [address] [id number] [place] [address] 24 May, 2014 [facility] [place] [facility] [address] [id number] [place] [address] 24 May, 2014 [facility] [place] [facility] [address] [id number] [place] [address] 10 May, 2014 [facility] [place] [facility] [address] [id number] [place] [address] 10 May, 2014 [facility] [place] [facility] [address] [id number] [place] [address] May, [facility] [place] [facility] [address] [id number] [place] [address] May, [facility] [place] [facility] [address] [id number] [place] [address] Apr, [facility] [place] [facility] [address] [id number] [place] [address] 20 Apr, 2014 [facility] [place] [facility] [address] [id number] [place] [address] 11 Apr, 2014 [facility] [place] [facility] [address] [id number] [place] [address] Apr, 2014 [facility] [place] [facility] [address] [id number] [place] [address] 10 Apr, 2014 [facility] [place] [facility] [address] [id number] [place] [address] 10 Apr, 2014 [facility] [place] [facility] [address] [id number] [place] [address] 05 Apr, 2014 [facility] [place] [facility] [address] [id number] [place] [address] Apr, [facility] [place] [facility] [address] [facility] [id number] [place] [address] Mar, [facility] [place] [facility] [address] [facility] [id number] [place] [address] Mar, [facility] [place] [facility] [address] [id number] [place] [address] Mar, [facility] [place] [facility] [address] [id number] [place] [address] Mar, [facility] [place] [facility] [address] [facility] [id number] [place] [address] Mar, [facility] [place] [facility] [address] [id number] [place] [address] Mar, [facility] [place] [facility] [address] [id number] [place] [address] Mar, [facility] [place] [facility] [address] [id number] [place] [address] Mar, [facility] [place] [facility] [address] [id number] [place] [address] Feb, [facility] [place] [facility] [address] [id number] [place] [address] Feb, [facility] [place] [facility] [address] [id number] [place] [address] Feb, [facility] [place] [facility] [address] [id number] [place] [address] Feb, [facility] [place] [facility] [address] [id number] [place] [address] Feb, [facility] [place] [facility] [address] [id number] [place] [address] Feb, [facility] [place] [facility] [address] [id number] [place] [address] Feb, [facility] [place] [facility] [address] [id number] [place] [address] Feb, [facility] [place] [facility] [address] [id number] [place] [address] Feb, [facility] [place] [facility] [address] [id number] [place] [address] Feb, [facility] [place] [facility] [address] [id number] [place] [address] Jan, [facility] [place] [facility] [address] [id number] [place] [address] Jan, [facility] [place] [facility] [address] [id number] [place] [address] Jan, [facility] [place] [facility] [address] [id number] [place] [address] Jan, [facility] [place] [facility] [address] [id number] [place] [address] Jan, [facility] [place] [facility] [address] [id number] [place] [address] Jan, [facility] [place] [facility] [address] [id number] [place] [address] Jan, [facility] [place] [facility] [address] [id number] [place] [address] Jan, [facility] [place] [facility] [address] [id number] [place] [address] Jan, [facility] [place] [facility] [address] [id number] [place] [address] Jan, [facility] [place] [facility] [address] [id number] [place] [address] Jan, [facility] [place] [facility] [address] [id number] [place] [address] Jan, [facility] [place] [facility] [address] [id number] [place] [address] Jan, [facility] [place] [facility] [address] [id number] [place] [address] Jan, [facility] [place] [facility] [address] [id number] [place] [address] Jan, [facility] [place] [facility] [address] [id number] [place] [address] Dec, 2013 [facility] [place] [facility] [address] [id number] [place] [address] 20 Dec, 2013 [facility] [place] [facility] [address] [id number] [place] [address] 16 Dec, 2013 [facility] [place] [facility] [address] [id number] [place] [address] 16 Dec, 2013 [facility] [place] [facility] [address] [id number] [place] [address] Dec, 2013 [facility] [place] [facility] [address] [id number] [place] [address] 09 Dec, 2013 [facility] [place] [facility] [address] [id number] [place] [address] 07 Dec, 2013 [facility] [place] [facility] [address] [id number] [place] [address] 07 Dec, 2013 [facility] [place] [facility] [address] [id number] [place] [address] 25 Sep, 2013 [facility] [place] [facility] [address] [id number] [place] [address] 25 Sep, 2013 [facility] [place] [facility] [address] [id number] [place] [address] 10 Sep, 2013 [facility] [place] [facility] [address] [id number] [place] [address] 10 Sep, 2013 [facility] [place] [facility] [address] [id number] [place] [address] 08 Sep, 2013 [facility] [place] [facility] [address] [id number] [place] [address] 08 Sep, 2013 [facility] [place] [facility] [address] [id number] [place] [address] 08 Sep, 2013 [facility] [place] [facility] [address] [id number] [place] [address] 08 Sep, 2013 [facility] [place] [facility] [address] [id number] [place] [address] 08 Sep, 2013 [facility] [place] [facility] [address] [id number] [place] [address] 08 Nov, 2013 [facility] [place] [facility] [address] [facility] [id number] [place] [address] 04 Nov, 2013 [facility] [place] [facility] [address] [facility] [id number] [place] [address] 04 Nov, 2013 [facility] [place] [facility] [address] [id number] [place] [address] 03 Nov, 2013 [facility] [place] [facility] [address] [facility] [id number] [place] [address] Nov, 2013 [facility] [place] [facility] [address] [id number] [place] [address] Nov, 2013 [facility] [place] [facility] [address] [id number] [place] [address] Oct, [facility] [place] [facility] [address] [id number] [place] [address] Oct, [facility] [place] [facility] [address] [facility] [id number] [place] [address] Oct, [facility] [place] [facility] [address] [id number] [place] [address] Oct, [facility] [place] [facility] [address] [id number] [place] [address] Oct, [facility] [place] [facility] [address] [id number] [place] [address] Oct, [facility] [place] [facility] [address] [facility] [id number] [place] [address] Oct, [facility] [place] [facility] [address] [id number] [place] [address] Oct, [facility] [place] [facility] [address] [facility] [id number] [place] [address] Oct, [facility] [place] [facility] [address] [id number] [place] [address] Oct, [facility] [place] [facility] [address] [facility] [id number] [place] [address] Oct, [facility] [place] [facility] [address] [id number] [place] [address] Oct, [facility] [place] [facility] [address] [facility] [id number] [place] [address] Oct, [facility] [place] [facility] [address] [id number] [place] [address] Oct, [facility] [place] [facility] [address] [facility] [id number] [place] [address] Sep, [facility] [place] [facility] [address] [id number] [place] [address] Sep, [facility] [place] [facility] [address] [id number] [place] [address] Sep, [facility] [place] [facility] [address] [id number] [place] [address] Sep, [facility] [place] [facility] [address] [id number] [place] [address] Sep, [facility] [place] [facility] [address] [id number] [place] [address] Sep, [facility] [place] [facility] [address] [id number] [place] [address] Sep, [facility] [place] [facility] [address] [id number] [place] [address] Sep, [facility] [place] [facility] [address] [id number] [place] [address] Aug, [facility] [place] [facility] [address] [facility] [id number] [place] [address] Aug, [facility] [place] [facility] [address] [id number] [place] [address] Aug, [facility] [place] [facility] [address] [id number] [place] [address] Aug, [facility] [place] [facility] [address] [id number] [place] [address] Aug, [facility] [place] [facility] [address] [id number] [place] [address] Aug, [facility] [place] [facility] [address] [id number] [place] [address] Aug, [facility] [place] [facility] [address] [id number] [place] [address] Aug, [facility] [place] [facility] [address] [id number] [place] [address] July, [facility] [place] [facility] [address] [id number] [place] [address] July, [facility] [place] [facility] [address] [id number] [place] [address] July, [facility] [place] [facility] [address] [id number] [place] [address] July, [facility] [place] [facility] [address] [id number] [place] [address] July, [facility] [place] [facility] [address] [id number] [place] [address] July, [facility] [place] [facility] [address] [id number] [place] [address] July, [facility] [place] [facility] [address] [id number] [place] [address] July, [facility] [place] [facility] [address] [id number] [place] [address] Jun, [facility] [place] [facility] [address] [id number] [place] [address] Jun, [facility] [place] [facility] [address] [id number] [place] [address] Jun, [facility] [place] [facility] [address] [id number] [place] [address] Jun, [facility] [place] [facility] [address] [id number] [place] [address] Jun, [facility] [place] [facility] [address] [id number] [place] [address] 17 Jun, 2013 [facility] [place] [facility] [address] [facility] [id number] [place] [address] Jun, [facility] [place] [facility] [address] [facility] [id number] [place] [address] Jun, [facility] [place] [facility] [address] [id number] [place] [address] Jun, [facility] [place] [facility] [address] [facility] [id number] [place] [address] Jun, [facility] [place] [facility] [address] [facility] [id number] [place] [address] Jun, [facility] [place] [facility] [address] [id number] [place] [address] Jun, [facility] [place] [facility] [address] [id number] [place] [address] May, [facility] [place] [facility] [address] [id number] [place] [address] May, [facility] [place] [facility] [address] [facility] [id number] [place] [address] May, [facility] [place] [facility] [address] [id number] [place] [address] May, [facility] [place] [facility] [address] [id number] [place] [address] May, [facility] [place] [facility] [address] [id number] [place] [address] May, [facility] [place] [facility] [address] [place] [facility] [id number] [place] [address] May, [facility] [place] [facility] [address] [facility] [id number] [place] [address] May, [facility] [place] [facility] [address] [id number] [place] [address] May, [facility] [place] [facility] [address] [id number] [place] [address] May, [facility] [place] [facility] [address] [id number] [place] [address] May, [facility] [place] [facility] [address] [facility] [id number] [place] [address] May, [facility] [place] [facility] [address] [facility] [id number] [place] [address] May, [facility] [place] [facility] [address] [id number] [place] [address] May, [facility] [place] [facility] [address] [facility] [id number] [place] [address] Apr, [facility] [place] [facility] [address] [facility] [id number] [place] [address] Apr, [facility] [place] [facility] [address] [id number] [place] [address] Apr, [facility] [place] [facility] [address] [id number] [place] [address] Apr, [facility] [place] [facility] [address] [id number] [place] [address] Apr, [facility] [place] [facility] [address] [id number] [place] [address] Apr, [facility] [place] [facility] [address] [id number] [place] [address] Mar, [facility] [place] [facility] [address] [id number] [place] [address] Mar, [facility] [place] [facility] [address] [id number] [place] [address] Mar, [facility] [place] [facility] [address] [facility] [id number] [place] [address] Mar, [facility] [place] [facility] [address] [id number] [place] [address] Mar, [facility] [place] [facility] [address] [id number] [place] [address] Mar, [facility] [place] [facility] [address] [id number] [place] [address] Mar, [facility] [address] [id number] [place] [address] Mar, [facility] [place] [facility] [address] [id number] [place] [address] Mar, [facility] [place] [facility] [address] [id number] [place] [address] Mar, [facility] [place] [facility] [address] [id number] [place] [address] Mar, [facility] [place] [facility] [address] [id number] [place] [address] Mar, [facility] [place] [facility] [address] [id number] [place] [address] Mar, [facility] [place] [facility] [address] [id number] [place] [address] Mar, [facility] [place] [facility] [address] [id number] [place] [address] Feb, [facility] [place] [facility] [address] [id number] [place] [address] Feb, [facility] [place] [facility] [address] [id number] [place] [address] Feb, [facility] [place] [facility] [address] [id number] [place] [address] Feb, [facility] [place] [facility] [address] [id number] [place] [address] Feb, [facility] [place] [facility] [address] [id number] [place] [address] Feb, [facility] [place] [facility] [address] [id number] [place] [address] Feb, [facility] [place] [facility] [address] [id number] [place] [address] Feb, [facility] [place] [facility] [address] [id number] [place] [address] Feb, [facility] [place] [facility] [address] [id number] [place] [address] 09 Feb, 2012 [facility] [place] [facility] [address] [facility] [id number] [place] [address] 09 Feb, 2012 [facility] [place] [facility] [address] [id number] [place] [address] Feb, 2012 [facility] [place] [facility] [address] [id number] [place] [address] Feb, 2012 [facility] [place] [facility] [address] [id number] [place] [address] Feb, 2012 [facility] [place] [facility] [address] [id number] [place] [address] Feb, 2012 [facility] [place] [facility] [address] [id number] [place] [address] Feb, 2012 [facility] [place] [facility] [address] [id number] [place] [address] 24 Dec, 2012 [facility] [place] [facility] [address] [id number] [place] [address] 24 Dec, 2012 [facility] [place] [facility] [address] [id number] [place] [address] 16 Dec, 2012 [facility] [place] [facility] [address] [id number] [place] [address] 16 Dec, 2012 [facility] [place] [facility] [address] [id number] [place] [address] 16 Dec, 2012 [facility] [place] [facility] [address] [id number] [place] [address] 16 Dec, 2012 [facility] [place] [facility] [address] [id number] [place] [address] 14 Dec, 2012 [facility] [place] [facility] [address] [id number] [place] [address] 14 Dec, 2012 [facility] [place] [facility] [address] [id number] [place] [address] 10 Dec, 2012 [facility] [place] [facility] [address] [id number] [place] [address] 10 Dec, 2012 [facility] [place] [facility] [address] [facility] [id number] [place] [address] 10 Dec, 2012 [facility] [place] [facility] [address] [facility] [id number] [place] [address] 10 Dec, 2012 [facility] [place] [facility] [address] [facility] [id number] [place] [address] Dec, [facility] [place] [facility] [address] [id number] [place] [address] 25 Nov, 2012 [facility] [place] [facility] [address] [facility] [id number] [place] [address] 20 Nov, 2012 [facility] [place] [facility] [address] [facility] [id number] [place] [address] 18 Nov, 2012 [facility] [place] [facility] [address] [id number] [place] [address] 16 Nov, 2012 [facility] [place] [facility] [address] [id number] [place] [address] 12 Nov, 2012 [facility] [place] [facility] [address] [id number] [place] [address] 11 Nov, 2012 [facility] [place] [facility] [address] [id number] [place] [address] 05 Nov, 2012 [facility] [place] [facility] [address] [id number] [place] [address] 15 Oct, 2012 [facility] [place] [facility] [address] [id number] [place] [address] Oct, [facility] [place] [facility] [address] [id number] [place] [address] Sep, [facility] [place] [facility] [address] [facility] [id number] [place] [address] Sep, [facility] [place] [facility] [address] [id number] [place] [address] Sep, [facility] [place] [facility] [address] [id number] [place] [address] Sep, [facility] [place] [facility] [address] [id number] [place] [address] 15 Sep, 2012 [facility] [place] [facility] [address] [facility] [id number] [place] [address] 09 Sep, 2012 [facility] [place] [facility] [address] [id number] [place] [address] 08 Sep, 2012 [facility] [place] [facility] [address] [id number] [place] [address] Aug, [facility] [place] [facility] [address] [id number] [place] [address] Aug, [facility] [place] [facility] [address] [facility] [id number] [place] [address] 16 Aug, 2012 [facility] [place] [facility] [address] [id number] [place] [address] Aug, [facility] [place] [facility] [address] [id number] [place] [address] Aug, [facility] [place] [facility] [address] [id number] [place] [address] Aug, [facility] [place] [facility] [address] [id number] [place] [address] Aug, [facility] [place] [facility] [address] [id number] [place] [address] Aug, [facility] [place] [facility] [address] [id number] [place] [address] July, [facility] [place] [facility] [address] [id number] [place] [address] July, [facility] [place] [facility] [address] [id number] [place] [address] July, [facility] [place] [facility] [address] [id number] [place] [id number] July, [facility] [place] [facility] [address] [id number] [place] [address] July, [facility] [place] [facility] [address] [id number] [place] [address] Jun, [facility] [place] [facility] [address] [id number] [place] [address] 26 May, 2012 [facility] [place] [facility] [address] [id number] [place] [address] 14 May, 2012 [facility] [place] [facility] [address] [id number] [place] [address] 04 May, 2012 [facility] [place] [facility] [address] [id number] [place] [address] Apr, [facility] [place] [facility] [address] [id number] [place] [address] 08 Apr, 2012 [facility] [place] [facility] [address] [id number] [place] [address] Apr, [facility] [place] [facility] [address] [id number] [place] [address] Mar, [facility] [place] [facility] [address] [id number] [place] [address] Mar, [facility] [place] [facility] [address] [id number] [place] [address] Mar, [facility] [place] [facility] [address] [id number] [place] [address] Mar, [facility] [place] [facility] [address] [id number] [place] [address] Mar, [facility] [place] [facility] [address] [id number] [place] [address] Mar, [facility] [place] [facility] [address] [id number] [place] [address] Mar, [facility] [place] [facility] [address] [id number] [place] [address] Feb, [facility] [place] [facility] [address] [id number] [place] [address] Feb, [facility] [place] [facility] [address] [id number] [place] [address] Feb, [facility] [place] [facility] [address] [id number] [place] [address] Feb, [facility] [place] [facility] [address] [id number] [place] [address] Feb, [facility] [place] [facility] [address] [id number] [place] [address] Feb, [facility] [place] [facility] [address] [id number] [place] [address] Feb, [facility] [place] [facility] [address] [id number] [place] [address] Feb, [facility] [place] [facility] [address] [id number] [place] [address] Jan, [facility] [place] [facility] [address] [id number] [place] [address] Jan, [facility] [place] [facility] [address] [id number] [place] [address] Jan, [facility] [place] [facility] [address] [id number] [place] [address] Jan, [facility] [place] [facility] [address] [id number] [place] [address] Jan, [facility] [place] [facility] [address] [id number] [place] [address] Jan, [facility] [place] [facility] [address] [id number] [place] [address] Jan, [facility] [place] [facility] [address] [id number] [place] [address] Jan, [facility] [place] [facility] [address] [id number] [place] [address] Jan, [facility] [place] [facility] [address] [id number] [place] [address] Jan, [facility] [place] [facility] [id number] [place] [address] Jan, [facility] [place] [facility] [address] [id number] [place] [address] Jan, [facility] [place] [facility] [address] [id number] [place] [address] Jan, [facility] [place] [facility] [address] [id number] [place] [address] Jan, [facility] [place] [facility] [address] [id number] [place] [address] Jan, [facility] [place] [facility] [address] [id number] [place] [address] Jan, [facility] [place] [facility] [address] [id number] [place] [address] Dec, [facility] [place] [facility] [address] [id number] [place] [address] Dec, [facility] [place] [facility] [address] [id number] [place] [address] Dec, [facility] [place] [facility] [address] [id number] [place] [address] Dec, [facility] [place] [facility] [address] [id number] [place] [address] Dec, [facility] [place] [facility] [address] [id number] [place] [address] Dec, [facility] [place] [facility] [address] [id number] [place] [address] Dec, [facility] [place] [facility] [address] [id number] [place] [address] Dec, [facility] [place] [facility] [address] [id number] [place] [address] 08 Dec, 2011 [facility] [place] [facility] [address] [id number] [place] [address] 05 Dec, 2011 [facility] [place] [facility] [address] [id number] [place] [address] 18 Nov, 2011 [facility] [place] [facility] [address] [id number] [place] [address] 13 Nov, 2011 [facility] [place] [facility] [address] [id number] [place] [address] 24 Oct, 2011 [facility] [place] [facility] [address] [id number] [place] [address] Oct, [facility] [place] [facility] [address] [id number] [place] [address] Oct, [facility] [place] [facility] [address] [facility] [id number] [place] [address] Oct, [facility] [place] [facility] [address] [id number] [place] [address] Oct, [facility] [place] [facility] [address] [id number] [place] [address] Oct, [facility] [place] [facility] [address] [facility] [id number] [place] [address] Oct, [facility] [place] [facility] [address] [id number] [place] [address] Sep, [facility] [place] [facility] [address] [id number] [place] [address] Aug, [facility] [place] [facility] [address] [id number] [place] [address] Aug, [facility] [place] [facility] [address] [id number] [place] [address] Aug, [facility] [place] [facility] [address] [id number] [place] [address] Aug, [facility] [place] [facility] [address] [id number] [place] [address] Aug, [facility] [place] [facility] [address] [id number] [place] [address] July, [facility] [place] [facility] [address] [id number] [place] [address] July, [facility] [place] [facility] [address] [id number] [place] [address] July, [facility] [place] [facility] [address] [id number] [place] [address] Jun, [facility] [place] [facility] [address] [id number] [place] [address] Jun, [facility] [place] [facility] [address] [id number] [place] [address] 04 Jun, 2011 [facility] [place] [facility] [address] [id number] [place] [address] Jun, [facility] [place] [facility] [address] [id number] [place] [address] 30 May, 2011 [facility] [place] [facility] [address] [id number] [place] [address] 30 May, 2011 [facility] [place] [facility] [address] [id number] [place] [address] 29 May, 2011 [facility] [place] [facility] [address] [id number] [place] [address] May, [facility] [place] [facility] [address] [id number] [place] [address] May, [facility] [place] [facility] [address] [id number] [place] [address] May, [facility] [place] [facility] [address] [id number] [place] [address] May, [facility] [place] [facility] [address] [id number] [place] [address] May, [facility] [place] [facility] [address] [id number] [place] [address] May, [facility] [place] [facility] [address] [id number] [place] [address] May, [facility] [place] [facility] [address] [id number] [place] [address] May, [facility] [place] [facility] [address] [id number] [place] [address] May, [facility] [place] [facility] [address] [id number] [place] [address] Mar, [facility] [place] [facility] [address] [id number] [place] [address] Mar, [facility] [place] [facility] [address] [id number] [place] [address] Feb, [facility] [place] [facility] [address] [id number] [place] [address] Feb, [facility] [place] [facility] [address] [id number] [place] [address] 20 Feb, 2011 [facility] [place] [facility] [address] [id number] [place] [address] 15 Feb, 2011 [facility] [place] [facility] [address] [id number] [place] [address] Feb, [facility] [place] [facility] [address] [id number] [place] [address] Feb, [facility] [place] [facility] [address] [id number] [place] [address] Feb, [facility] [place] [facility] [address] [id number] [place] [address] Jan, [facility] [address] [id number] [place] [address] Jan, [facility] [address] [id number] [place] [address] Jan, [facility] [address] [id number] [place] [address] Jan, [facility] [address] [id number] [place] [address] Jan, [facility] [address] [id number] [place] [address] Jan, [facility] [address] [id number] [place] [address] Dec, [facility] [address] [id number] [place] [address] Dec, [facility] [address] [id number] [place] [address] Dec, [facility] [address] [id number] [place] [address] July, [facility] [address] [id number] [place] [address] July, [facility] [address] [facility] [id number] [place] [address] Feb, [facility] [address] [id number] [place] [address] Jan, [facility] [address] [id number] [place] [address] Dec, [facility] [address] [id number] [place] [address] Dec, [facility] [address] [id number] [place] [address] Sep, [facility] [address] [id number] [place] [address] Aug, [facility] [address] [id number] [place] [address] Jun, [facility] [address] [id number] [place] [address] Jun, [facility] [address] [id number] [place] [address] Jan, [facility] [address] [id number] [place] [address] Jan, [facility] [address] [id number] [place] [address] Jan, [facility] [address] [id number] [place] [address] Jan, [facility] [address] [id number] [place] [address] 29 Dec, 2008 [facility] [address] [id number] [place] [address] 26 Dec, 2008 [facility] [address] [id number] [place] [address] 15 Dec, 2008 [facility] [address] [id number] [place] [address] 17 Nov, 2008 [facility] [address] [id number] [place] [address] July, [facility] [address] [id number] [place] [address] May, [facility] [address] [id number] [place] [address] Apr, [facility] [address] [id number] [place] [address] Feb, [facility] [address] [id number] [place] [address] Dec, IMMUNIZATIONS No Known Immunizations SOCIAL HISTORY Never Assessed REASON FOR VISIT PLAN OF CARE VITAL SIGNS MEDICATIONS Unknown Medications RESULTS No Results PROCEDURES Procedure Date Ordered Result Body Site PSYTX PT&/FAMILY 45 MINUTES September 25, 2013 INSTRUCTIONS MEDICATIONS ADMINISTERED No Known Medications [...]
--- OUTSIDE RECORDS SUMMARY | 2019-06-22 19:58 | XMS REPORT ---
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 Active 527473764 Problem Diabetes E11.9 Active 142718158 Problem Type 2 diabetes mellitus with complication E11.8 Active 859340443 Problem Post laminectomy syndrome M96.1 Acti ve 73524748 Problem Bipolar 1 disorder F31.9 Active 3 30103326 Problem New daily persistent headache G44.52 Active 940935863 Problem Type 2 diabetes mellitus with hyperglycemia E11.65 Active 10624819 Problem Other chronic pain G89.29 Active 8 2636586 Problem Essential hypertension I10 Active 88813949 Problem Acute bilateral low back pain with right-sided sciatica M54.41 Active 905217527 Problem Bipolar disorder, in partial remission, most rec ent episode manic F31.73 Active 50906693 Problem Seasonal allergic rhinitis due to pollen J30.1 Active 30307780 Problem Hyperlipidemia, unspecified E78.5 Ac tive 26179141 Problem Eye exam normal Z01.00 Active 2438 35657 Problem Extreme poverty Z59.5 Active 1140 3006 Problem Lumbago with sciatica, left side M54.42 Active 819222311 Problem Hypertriglyceridemia E78.1 Active 509037314 Problem Insulin long-term use Z79.4 Active 707604759 Problem Rhinosinusitis J32.9 Active 85438 000 ALLERGIES No Information ENCOUNTERS Encounter Location Date Diagnosis [facility] [address] [address] 08 Aug, 2019 [facility] [address] [address] 07 Jun, [facility] [address] [address] May, [facility] [address] [address] May, [facility] [address] [address] May, [facility] [address] [address] May, Borderline intellectual functioning R41. 83 [place] [address] [address] 09 May, 2019 Type 2 diabetes mellitus with complicati on E11.8 [place] [address] [address] 09 May, 2019 Bipolar 1 disorder F31.9 ; Type 2 diabet es mellitus with complication E11.8 ; Pain of right thumb M79.644 ; Extreme poverty Z59.5 and Low back pain M54.5 [place] [address] [address] 09 May, 2019 [facility] [address] [address] Apr, Bipolar 1 disorder F31.9 ; Borderline in tellectual functioning R41.83 and Extreme poverty Z59.5 [facility] [address] [facility] [id number] [address] [place] [address] Apr, Seasonal allergic rhinitis d ue to pollen J30.1 [facility] [address] [address] Apr, Essential hypertension I10 and Diabetes E11.9 [place] [address] [address] Apr, [place] [address] [address] Mar, Bipolar 1 disorder F31.9 ; Borderline in tellectual functioning R41.83 and Extreme poverty Z59.5 [place] [address] [address] Mar, Exercise counseling Z71.82 [place] [address] [address] Mar, [place] [address] [address] Mar, Bipolar disorder, in partial remission, most recent episode manic F31.73 and 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 [place] [address] [address] Mar, [place] [address] [address] Mar, Exercise counseling Z71.82 [place] [address] [address] Feb, Bipolar 1 disorder F31.9 ; Borderline in tellectual functioning R41.83 and Extreme poverty Z59.5 [place] [address] [address] Feb, [place] [address] [address] Feb, Type 2 diabetes mellitus with complicati on E11.8 [facility] [address] [facility] [id number] [place] [address] Feb, Acute low back pain without sciatica, unspecified back pain laterality M54.5 [place] [address] [address] Feb, Bipolar 1 disorder F31.9 ; Borderline in tellectual functioning R41.83 and Extreme poverty Z59.5 [place] [address] [address] Jan, Bipolar 1 disorder F31.9 ; Borderline in tellectual functioning R41.83 and Extreme poverty Z59.5 [facility] [address] [address] Jan, [facility] [address] [address] Jan, Type 2 diabetes mellitus with complicati on E11.8 [facility] [address] [address] Jan, Type 2 diabetes mellitus with complicati on E11.8 ; Dysuria R30.0 and Diarrhea, unspecified type R19.7 [place] [address] [address] Jan, Bipolar 1 disorder F31.9 ; Borderline in tellectual functioning R41.83 and Extreme poverty Z59.5 [place] [address] [address] Dec, [facility] [address] [address] Dec, [facility] [address] [address] Dec, [facility] [address] [address] Dec, [facility] [address] [address] Dec, Rhinosinusitis J32.9 [facility] [address] [address] Dec, [facility] [address] [address] Dec, Bipolar 1 disorder F31.9 ; Borderline in tellectual functioning R41.83 and Extreme poverty Z59.5 [facility] [address] [address] Dec, Type 2 diabetes mellitus with complicati on E11.8 and Type 2 diabetes mellitus with hyperglycemia E11.65 [place] [address] [address] Dec, [place] [address] [address] Dec, Type 2 diabetes mellitus with complicati on E11.8 ; Insulin long-term use Z79.4 ; Hyperglycemia R73.9 and Yeast infection B37.9 [place] [address] [address] Dec, Encounter for immunization Z23 [place] [address] [address] Nov, [place] [address] [address] Nov, Bipolar 1 disorder F31.9 ; Borderline in tellectual functioning R41.83 and Extreme poverty Z59.5 [place] [address] [address] Nov, [place] [address] [address] Nov, [place] [address] [address] Nov, Borderline intellectual functioning R41. 83 and Bipolar disorder, in partial remission, most recent episode manic F31.73 [facility] [place] [id number] [place] [address] Nov, Epigastric abdominal pain R1 0.13 [place] [address] [address] Nov, Bipolar 1 disorder F31.9 ; Borderline in tellectual functioning R41.83 and Extreme poverty Z59.5 [facility] [place] [id number] [address] [place] [address] Oct, Dysuria R30.0 and Acute cyst itis without hematuria N30.00 [facility] [address] [place] [address] [address] Oct, [facility] [address] [address] Oct, [facility] [address] [address] Oct, Bipolar 1 disorder F31.9 ; Borderline in tellectual functioning R41.83 and Extreme poverty Z59.5 [facility] [address] [address] Oct, [facility] [address] [address] Oct, 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 [address] [address] Oct, Diarrhea, unspecified type R19.7 [facility] [address] [id number] [place] [id number] Sep, Dental examination Z01.20 and Dental car ies K02.9 [facility] [address] [facility] [id number] [place] [address] Sep, Mouth pain K13.79 [facility] [address] [address] Sep, [facility] [address] [address] Sep, Bipolar 1 disorder F31.9 ; Borderline in tellectual functioning R41.83 and Extreme poverty Z59.5 [facility] [address] [address] Sep, [place] [address] [address] Sep, [place] [address] [address] Sep, Diabetes E11.9 ; Hyperglycemia R73.9 ; L eliseo term current use of insulin Z79.4 and Diarrhea, unspecified type R19.7 [place] [address] [address] Sep, [place] [address] [address] Sep, Bipolar 1 disorder F31.9 ; Borderline in tellectual functioning R41.83 and Extreme poverty Z59.5 [place] [address] [address] Sep, [place] [address] [address] Sep, [place] [address] [address] Aug, Bipolar 1 disorder F31.9 ; Borderline in tellectual functioning R41.83 and Extreme poverty Z59.5 [place] [address] [address] Aug, Exercise counseling Z71.82 [place] [address] [address] Aug, Bipolar 1 disorder F31.9 ; Borderline in tellectual functioning R41.83 and Extreme poverty Z59.5 [place] [address] [address] Aug, Borderline intellectual functioning R41. 83 and Bipolar disorder, in partial remission, most recent episode manic F31.73 [place] [address] [address] Aug, Low back pain M54.5 [place] [address] [address] Aug, Borderline intellectual functioning R41. 83 and Bipolar disorder, in partial remission, most recent episode manic F31.73 [place] [address] [address] July, Acute superficial gastritis without hemo rrhage K29.00 ; Low back pain M54.5 and Other chronic pain G89.29 [place] [address] [address] July, [place] [address] [address] July, [place] [address] [address] Jun, [facility] [address] [facility] [id number] [address] [place] [address] Jun, Bilateral lower extremity ed epi R60.0 [place] [address] [address] Jun, Borderline intellectual functioning R41. 83 and Bipolar disorder, in partial remission, most recent episode manic F31.73 [place] [address] [address] Jun, [place] [address] [address] May, Bronchitis J40 [place] [address] [address] May, Screening for breast cancer Z12.31 and E ncounter for immunization Z23 [place] [address] [address] May, Bipolar 1 disorder F31.9 ; Borderline in tellectual functioning R41.83 and Extreme poverty Z59.5 [place] [address] [address] Apr, [place] [address] [address] 07 Apr, 2018 Bipolar 1 disorder F31.9 ; Borderline in tellectual functioning R41.83 and Extreme poverty Z59.5 [place] [address] [address] 05 Apr, 2018 Irritable bowel syndrome with diarrhea K 58.0 and Dental abscess K04.7 [place] [address] [address] Mar, [place] [address] [place] [address] Mar, [place] [address] [address] Mar, Bipolar 1 disorder F31.9 ; Borderline in tellectual functioning R41.83 and Extreme poverty Z59.5 [place] [address] [address] Mar, Hypertriglyceridemia E78.1 [place] [address] [address] Mar, Borderline intellectual functioning R41. 83 and Bipolar disorder, in partial remission, most recent episode manic F31.[address] [address] Mar, Bipolar 1 disorder F31.9 ; Borderline in tellectual functioning R41.83 and Extreme poverty Z59.5 [place] [address] [address] Feb, Generalized abdominal pain R10.84 and Di arrhea, unspecified type R19.7 [place] [address] [address] Feb, [place] [id number] Feb, Myalgia M79.10 and Nausea R11.0 [place] [address] [address] Feb, Bipolar 1 disorder F31.9 ; Borderline in tellectual functioning R41.83 and Extreme poverty Z59.5 [place] [address] [address] Feb, [place] [address] [place] [address] Feb, Diabetes E11.9 ; Hyperglycemia R73.9 and Diarrhea, unspecified R19.7 [place] [address] [address] Feb, Diarrhea, unspecified type R19.7 ; Abdom inal pain R10.9 and Encounter for immunization Z23 [place] [address] [address] Jan, Bipolar 1 disorder F31.9 ; Borderline in tellectual functioning R41.83 and Extreme poverty Z59.5 [place] [address] [address] Dec, Bipolar 1 disorder F31.9 ; Borderline in tellectual functioning R41.83 and Extreme poverty Z59.5 [place] [address] [address] Nov, [address] [address] Nov, Hypertriglyceridemia E78.1 [place] [address] [address] Nov, Bipolar 1 disorder F31.9 ; Borderline in tellectual functioning R41.83 and Extreme poverty Z59.5 [place] [address] [address] Nov, Type 2 diabetes mellitus with complicati on E11.8 [place] [address] [address] Nov, Borderline intellectual functioning R41. 83 and Bipolar disorder, in partial remission, most recent episode manic F31.73 [place] [address] [address] Nov, Type 2 diabetes mellitus with complicati on E11.8 [place] [address] [address] 11 Nov, 2017 Bipolar 1 disorder F31.9 ; Borderline in tellectual functioning R41.83 and Extreme poverty Z59.5 [place] [address] [address] Nov, Type 2 diabetes mellitus with complicati on E11.8 ; Pain of left upper arm M79.622 ; Pain in right upper arm M79.621 ; Hyperglycemia R73.9 ; Lumbago with sciatica, left side M54.42 and Other chronic pain G89.[address] [address] Oct, Bipolar 1 disorder F31.9 ; Borderline in tellectual functioning R41.83 and Extreme poverty Z59.[address] [address] Oct, Type 2 diabetes mellitus with hyperglyce didi E11.65 ; nursing home current use of insulin Z79.4 and Other acute gastritis without hemorrhage K29.[address] [address] Oct, Bipolar 1 disorder F31.9 ; Borderline in tellectual functioning R41.83 and Extreme poverty Z59.[address] [address] Sep, Diarrhea, unspecified R19.7 and Vomiting , unspecified R11.[address] [address] Aug, Type 2 diabetes mellitus with complicati on E11.[address] [address] Aug, [address] [address] Aug, Bipolar 1 disorder F31.9 ; Borderline in tellectual functioning R41.83 and Extreme poverty Z59.5 [place] [address] [address] Aug, Borderline intellectual functioning R41. 83 and Bipolar disorder, in partial remission, most recent episode manic F31.73 [place] [address] [address] Aug, Bipolar 1 disorder F31.9 [place] [address] [address] Aug, [place] [address] [address] Aug, [place] [address] [address] Aug, Bipolar 1 disorder F31.9 ; Borderline in tellectual functioning R41.83 and Extreme poverty Z59.5 [place] [address] [address] July, Type 2 diabetes mellitus with complicati on E11.8 [place] [address] [address] July, Bipolar 1 disorder F31.9 ; Borderline in tellectual functioning R41.83 and Extreme poverty Z59.5 [place] [address] [address] Jun, Bipolar 1 disorder F31.9 ; Borderline in tellectual functioning R41.83 and Extreme poverty Z59.5 [place] [address] [address] Jun, Bipolar 1 disorder F31.9 ; Borderline in tellectual functioning R41.83 and Extreme poverty Z59.5 [place] [address] [address] Jun, Bipolar 1 disorder F31.9 ; Borderline in tellectual functioning R41.83 and Extreme poverty Z59.5 [place] [address] [address] May, Urinary tract infection without hematuri a, site unspecified N39.0 [place] [address] [place] [address] May, Bipolar 1 disorder F31.9 ; Borderline in tellectual functioning R41.83 and Extreme poverty Z59.5 [place] [address] [address] Apr, Diabetes E11.9 and Breast cancer screeni ng Z12.31 [place] [address] [address] 20 Apr, 2017 Bipolar 1 disorder F31.9 and 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 [place] [address] [place] [address] Mar, Bipolar 1 disorder F31.9 ; Borderline in tellectual functioning R41.83 and Extreme poverty Z59.5 [place] [address] [address] Mar, New daily persistent headache G44.52 ; L eg pain 729.5 and History of carpal tunnel release Z98.890 [place] [address] [address] Mar, Hyperlipidemia, unspecified E78.5 [place] [address] [address] Mar, Bipolar 1 disorder F31.9 ; Borderline in tellectual functioning R41.83 and Extreme poverty Z59.5 [place] [address] [address] Feb, Bipolar 1 disorder F31.9 ; Borderline in tellectual functioning R41.83 and Extreme poverty Z59.5 [place] [address] [address] Feb, Diabetes E11.9 [place] [address] [address] Feb, Viral syndrome B34.9 [place] [address] [address] Jan, Other viral agents as the cause of disea ses classified elsewhere B97.89 and Acute upper respiratory infection, unspecified J06.9 [place] [address] [address] 16 Jan, 2017 Bipolar 1 disorder F31.9 and 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 [place] [address] [address] Jan, Bipolar 1 disorder F31.9 ; Borderline in tellectual functioning R41.83 and Extreme poverty Z59.5 [place] [address] [address] Dec, Diabetes E11.9 [place] [address] [address] Dec, Diabetes E11.9 and Encounter for immuniz ation Z23 [place] [address] [address] Dec, Bipolar 1 disorder F31.9 ; Borderline in tellectual functioning R41.83 and Extreme poverty Z59.5 [place] [address] [address] Dec, Back pain M54.9 [place] [address] [address] 07 Nov, 2016 [place] [address] [address] Nov, Bipolar 1 disorder F31.9 ; Borderline in tellectual functioning R41.83 and Extreme poverty Z59.5 [place] [address] [address] 05 Nov, 2016 Bipolar 1 disorder F31.9 ; Borderline in tellectual functioning R41.83 and Extreme poverty Z59.5 [place] [address] [address] Oct, Borderline intellectual functioning R41. 83 and Bipolar 1 disorder F31.9 [place] [address] [address] Oct, Bipolar 1 disorder F31.9 ; Borderline in tellectual functioning R41.83 and Extreme poverty Z59.5 [place] [address] [address] Oct, Back pain M54.9 [place] [address] [address] Oct, Borderline intellectual functioning R41. 83 and Type 2 diabetes mellitus with complication E11.8 [place] [address] [address] Sep, Bipolar 1 disorder F31.9 ; Borderline in tellectual functioning R41.83 and Extreme poverty Z59.5 [place] [address] [address] Sep, Borderline intellectual functioning R41. 83 and Bipolar 1 disorder F31.9 [place] [address] [address] Sep, Bipolar 1 disorder F31.9 ; Borderline in tellectual functioning R41.83 and Extreme poverty Z59.5 [place] [address] [address] Aug, Diabetes E11.9 ; Hyperlipidemia, unspeci fied E78.5 and Lumbar radiculopathy M54.16 [place] [address] [address] 15 Aug, 2016 Bipolar 1 disorder F31.9 ; Borderline in tellectual functioning R41.83 and Extreme poverty Z59.5 [place] [address] [address] Aug, [place] [address] [address] 08 Aug, 2016 [place] [address] [address] Aug, [facility] [address] [place] [id number] [place] [address] July, [facility] [address] [address] July, Acute bilateral low back pain with right -sided sciatica M54.41 [facility] [address] [address] July, Bipolar 1 disorder F31.9 ; Borderline in tellectual functioning R41.83 and Extreme poverty Z59.5 [place] [address] [place] [id number] [place] [address] July, Back pain M54.9 and Diabetes E11.9 [place] [address] [address] Jun, Bipolar 1 disorder F31.9 ; Borderline in tellectual functioning R41.83 and Extreme poverty Z59.5 [place] [address] [address] Jun, Bipolar 1 disorder F31.9 ; Borderline in tellectual functioning R41.83 and Extreme poverty Z59.5 [place] [address] [place] [id number] [place] [address] May, Visit for pelvic exam Z01.419 ; Acute va ginitis N76.0 and Diabetes E11.9 [place] [address] [place] [id number] [place] [address] May, Bipolar 1 disorder F31.9 ; Borderline in tellectual functioning R41.83 and Extreme poverty Z59.5 [place] [address] [address] May, [place] [address] [address] May, [facility] [address] [address] May, Bipolar 1 disorder F31.9 ; Borderline in tellectual functioning R41.83 and Extreme poverty Z59.5 [place] [address] [address] May, Hyperlipidemia, unspecified E78.5 [place] [address] [address] 13 Apr, 2016 Breast cancer screening Z12.39 [place] [address] [address] Mar, [place] [address] [address] Mar, Bipolar disorder, current episode mixed, unspecified F31.60 [place] [address] [address] Mar, Bipolar 1 disorder F31.9 ; Borderline in tellectual functioning R41.83 and Extreme poverty Z59.5 [place] [address] [address] Feb, Acute nasopharyngitis J00 [place] [address] [address] 27 Feb, 2016 Dental examination Z01.20 [place] [address] [address] Feb, Dental cavities K02.9 and Chronic period ontitis, unspecified K05.30 [place] [address] [address] Feb, Low back pain M54.5 and Extreme poverty Z59.5 [place] [address] [address] Feb, [place] [address] [address] 05 Feb, 2016 Routine gynecological examination V72.31 ; Breast cancer screening Z12.39 and Herpes simplex type 1 infection B00.9 [place] [address] [address] Feb, Diabetes E11.9 [place] [address] [place] [id number] [place] [address] 01 Feb, 2016 Encounter for dental examination and leti aning without abnormal findings Z01.20 [place] [address] [address] Jan, Hyperlipidemia, unspecified E78.5 [place] [address] [address] Jan, Bipolar 1 disorder F31.9 ; Borderline in tellectual functioning R41.83 and Extreme poverty Z59.5 [place] [address] [address] 18 Jan, 2016 Diabetes E11.9 [place] [address] [address] 17 Jan, 2016 Diabetes E11.9 [place] [address] [address] 14 Dec, 2015 Bipolar 1 disorder F31.9 ; Borderline in tellectual functioning R41.83 and Extreme poverty Z59.5 [place] [address] [address] 13 Dec, 2015 Bipolar disorder, current episode mixed, unspecified F31.60 and 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 [place] [address] [address] 16 Nov, 2015 Bipolar 1 disorder F31.9 ; Borderline in tellectual functioning R41.83 ; Extreme poverty Z59.5 and Non compliance with medical treatment Z91.19 [place] [address] [address] Oct, [place] [address] [address] Oct, Dental caries K02.9 [place] [address] [address] Oct, Low back pain M54.5 and Other chronic pa in G89.29 [place] [address] [address] Oct, Bipolar 1 disorder F31.9 ; Borderline in tellectual functioning R41.83 ; Extreme poverty Z59.5 and Non compliance with medical treatment Z91.19 [place] [address] [address] Oct, [place] [address] [address] Oct, [place] [address] [address] Oct, Dental examination Z01.20 [place] [address] [address] Oct, Bipolar 1 disorder F31.9 ; Borderline in tellectual functioning R41.83 ; Extreme poverty Z59.5 and Non compliance with medical treatment Z91.19 [place] [address] [address] Oct, [place] [address] [address] Sep, Type 2 diabetes mellitus with complicati on E11.8 [place] [address] [address] Sep, Bipolar disorder, current episode mixed, unspecified F31.60 [place] [address] [address] Sep, Bipolar disorder, current episode mixed, unspecified F31.60 [place] [address] [address] Sep, Bipolar disorder, in partial remission, most recent episode manic F31.73 ; 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 ; Extreme poverty Z59.5 and Non compliance with medical treatment Z91.19 [place] [address] [address] Aug, Bipolar disorder, in partial remission, most recent episode manic F31.73 ; 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 ; Extreme poverty Z59.5 and Non compliance with medical treatment Z91.19 [place] [address] [address] Aug, Bipolar disorder, in partial remission, most recent episode manic F31.73 ; 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 ; Extreme poverty Z59.5 and Non compliance with medical treatment Z91.19 [place] [address] [address] Aug, [place] [address] [address] July, Bipolar disorder, in partial remission, most recent episode manic F31.73 ; 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 ; Extreme poverty Z59.5 and Non compliance with medical treatment Z91.19 [place] [address] [address] July, Bipolar disorder, current episode mixed, unspecified F31.60 [place] [address] [address] July, Bipolar disorder, in partial remission, most recent episode manic F31.73 ; 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 ; Extreme poverty Z59.5 and Non compliance with medical treatment Z91.19 [place] [address] [address] July, 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 and Chronic pain G89.29 [place] [address] [address] Jun, nursing home current use of opiate analgesi c Z79.891 and Bipolar 1 disorder F31.9 [place] [address] [address] Jun, [place] [address] [address] Jun, [place] [address] [address] Jun, [place] [address] [address] Jun, Bipolar disorder, in partial remission, most recent episode manic F31.73 ; 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 and Non compliance with medical treatment Z91.19 [place] [address] [address] May, Bipolar disorder, in partial remission, most recent episode manic F31.73 ; 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 and Non compliance with medical treatment Z91.19 [place] [address] [address] May, Bipolar disorder, in partial remission, most recent episode manic F31.73 [place] [address] [address] May, Diabetes E11.9 and Chronic pain G89.[address] [address] May, [address] [address] May, Bipolar disorder, in partial remission, most recent episode manic F31.73 ; Non compliance with medical treatment Z91.19 and 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 [place] [address] [address] May, Type 2 diabetes mellitus with complicati on E11.8 and Back pain M54.9 [place] [address] [address] May, Bipolar disorder, in partial remission, most recent episode manic F31.73 and Borderline intellectual functioning R41.[address] [address] Apr, [address] [address] Apr, [address] [address] Apr, [place] [address] [address] 09 Apr, 2015 Diabetes E11.9 ; Irritable bowel syndrom e with diarrhea K58.0 and Lumbar radiculopathy M54.16 [place] [address] [address] 02 Apr, 2015 Breast screening Z12.39 [place] [address] [place] [address] Apr, Bipolar disorder, in partial remission, most recent episode manic F31.73 ; Non compliance with medical treatment Z91.19 and 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 [place] [address] [address] Mar, Edema, unspecified type R60.9 and Type 2 diabetes mellitus with complication E11.8 [place] [address] [address] Mar, Bipolar disorder, in partial remission, most recent episode manic F31.73 ; Non compliance with medical treatment Z91.19 ; 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 and Extreme poverty Z59.5 [place] [address] [address] Mar, Bipolar disorder, current episode mixed, unspecified F31.60 ; 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 ; Extreme poverty Z59.5 and Generalized anxiety disorder F41.1 [place] [address] [address] Mar, Bipolar disorder, in partial remission, most recent episode manic F31.73 ; 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 and Extreme poverty Z59.5 [place] [address] [address] Feb, Bipolar disorder, in partial remission, most recent episode manic F31.73 ; 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 and Extreme poverty Z59.5 [place] [address] [address] Feb, Bipolar disorder, in partial remission, most recent episode manic F31.73 ; 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 and Extreme poverty Z59.5 [place] [address] [address] Feb, [place] [address] [address] Jan, Type 2 diabetes mellitus with complicati on E11.8 and Petechiae R23.3 [place] [address] [place] [address] Jan, Type 2 diabetes mellitus with complicati on E11.8 ; Edema, unspecified R60.9 ; Petechiae R23.3 and Diabetes E11.9 [place] [address] [address] Jan, Bipolar disorder, in partial remission, most recent episode manic F31.73 ; 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 and Extreme poverty Z59.5 [place] [address] [address] Jan, Bipolar disorder, in partial remission, most recent episode manic F31.73 ; 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 and Extreme poverty Z59.5 [place] [address] [address] Dec, Bipolar disorder, in partial remission, most recent episode manic F31.73 [place] [address] [address] Dec, Edema, due to unspecified malnutrition t ype, unspecified edema R60.9 and Essential hypertension I10 [place] [address] [address] Dec, Bipolar disorder, in partial remission, most recent episode manic F31.73 [place] [address] [address] Nov, Bipolar I disorder, most recent episode (or current) mixed, unspecified 296.60 [address] [place] [address] Nov, Stress incontinence, female 625.6 ; Back pain 724.[address] [facility] [address] [address] Nov, Generalized anxiety disorder 300.02 and Bipolar II disorder [address] [facility] [address] [address] Nov, Bipolar I disorder, most recent episode (or current) mixed, unspecified 296.60 [facility] [address] [address] Oct, [facility] [address] [address] Oct, [facility] [address] [address] Oct, [facility] [address] [address] Oct, Bipolar I disorder, most recent episode (or current) mixed, unspecified 296.60 [facility] [address] [address] Sep, Diabetes [address] [facility] [address] [address] Sep, Bipolar I disorder, most recent episode (or current) mixed, unspecified 296.60 [facility] [address] [address] Sep, [facility] [address] [address] Sep, [facility] [address] [address] Sep, Bipolar I disorder, most recent episode (or current) mixed, unspecified 296.60 [facility] [address] [address] Sep, Bipolar I disorder, most recent episode (or current) mixed, unspecified 296.60 [facility] [address] [place] [id number] [place] [address] Sep, [facility] [address] [address] Sep, Anxiety 300.00 ; Diabetes 250.[address] Hyp [address]lipidemia 272.4 [facility] [address] [address] Aug, [facility] [address] [address] Aug, [facility] [address] [address] Aug, [facility] [address] [address] Aug, Bipolar I disorder, most recent episode (or current) mixed, unspecified 296.60 [facility] [address] [address] Aug, Generalized anxiety disorder 300.02 and Bipolar II disorder 296.89 [facility] [address] [address] July, Bipolar I disorder, most recent episode (or current) mixed, unspecified 296.60 [facility] [address] [address] July, Cough 786.2 [facility] [address] [address] July, Bipolar I disorder, most recent episode (or current) mixed, unspecified 296.60 [facility] [address] [address] Jun, Diabetes [address] [facility] [address] [address] Jun, [facility] [address] [address] Jun, [facility] [address] [place] [address] May, [facility] [place] [facility] [address] [facility] [id number] [place] [address] May, [facility] [place] [facility] [address] [facility] [id number] [place] [address] May, [facility] [place] [facility] [address] [id number] [place] [address] May, [facility] [place] [facility] [address] [id number] [place] [address] May, [facility] [place] [facility] [address] [facility] [id number] [place] [address] May, [facility] [place] [facility] [address] [id number] [place] [address] Apr, [facility] [place] [facility] [address] [id number] [place] [address] Apr, [facility] [place] [facility] [address] [id number] [place] [address] Apr, [facility] [place] [facility] [address] [id number] [place] [address] Apr, [facility] [place] [facility] [address] [id number] [place] [address] Apr, [facility] [place] [facility] [address] [id number] [place] [address] Apr, [facility] [place] [facility] [address] [id number] [place] [address] Apr, [facility] [place] [facility] [address] [facility] [id number] [place] [address] Apr, [facility] [place] [facility] [address] [id number] [place] [address] Mar, [facility] [place] [facility] [address] [id number] [place] [address] Mar, [facility] [place] [facility] [address] [id number] [place] [address] Mar, [facility] [place] [facility] [address] [id number] [place] [address] Mar, [facility] [place] [facility] [address] [id number] [place] [address] Mar, [facility] [place] [facility] [address] [id number] [place] [address] Mar, [facility] [place] [facility] [address] [id number] [place] [address] Mar, [facility] [place] [facility] [address] [facility] [id number] [place] [address] Mar, [facility] [place] [facility] [address] [id number] [place] [address] Feb, [facility] [place] [facility] [address] [id number] [place] [address] Feb, [facility] [place] [facility] [address] [id number] [place] [address] Feb, [facility] [place] [facility] [address] [id number] [place] [address] Feb, [facility] [place] [facility] [address] [id number] [place] [address] Feb, [facility] [place] [facility] [address] [id number] [place] [address] Feb, [facility] [place] [facility] [address] [id number] [place] [address] Feb, [facility] [place] [facility] [address] [id number] [place] [address] Feb, [facility] [place] [facility] [address] [id number] [place] [address] Feb, [facility] [place] [facility] [address] [id number] [place] [address] Feb, [facility] [place] [facility] [address] [id number] [place] [address] Jan, [facility] [place] [facility] [address] [id number] [place] [address] Jan, [facility] [place] [facility] [address] [id number] [place] [address] Jan, [facility] [place] [facility] [address] [id number] [place] [address] Jan, [facility] [place] [facility] [address] [id number] [place] [address] Jan, [facility] [place] [facility] [address] [id number] [place] [address] Jan, [facility] [place] [facility] [address] [id number] [place] [address] Jan, [facility] [place] [facility] [address] [id number] [place] [address] Jan, [facility] [place] [facility] [address] [id number] [place] [address] Jan, [facility] [place] [facility] [address] [id number] [place] [address] Jan, [facility] [place] [facility] [address] [id number] [place] [address] Jan, [facility] [place] [facility] [address] [id number] [place] [address] Jan, [facility] [place] [facility] [address] [id number] [place] [address] Jan, [facility] [place] [facility] [address] [id number] [place] [address] Jan, [facility] [place] [facility] [address] [id number] [place] [address] Jan, [facility] [place] [facility] [address] [place] [id number] [place] [address] Dec, [facility] [place] [facility] [address] [id number] [place] [address] Dec, [facility] [place] [facility] [address] [id number] [place] [address] 16 Dec, 2013 [facility] [place] [facility] [address] [id number] [place] [address] 16 Dec, 2013 [facility] [place] [facility] [address] [id number] [place] [address] 09 Dec, 2013 [facility] [place] [facility] [address] [id number] [place] [address] 09 Dec, 2013 [facility] [place] [facility] [address] [id number] [place] [address] 07 Dec, 2013 [facility] [place] [facility] [address] [id number] [place] [address] 07 Dec, 2013 [facility] [place] [facility] [address] [id number] [place] [address] 25 Sep, 2013 [facility] [place] [facility] [address] [id number] [place] [address] 25 Sep, 2013 [facility] [place] [facility] [address] [id number] [place] [address] 10 Sep, 2013 [facility] [place] [facility] [address] [id number] [place] [address] 10 Sep, 2013 [facility] [place] [facility] [address] [id number] [place] [address] 08 Sep, 2013 [facility] [place] [facility] [address] [id number] [place] [address] 08 Sep, 2013 [facility] [place] [facility] [address] [id number] [place] [address] 08 Sep, 2013 [facility] [place] [facility] [address] [id number] [place] [address] 08 Sep, 2013 [facility] [place] [facility] [address] [id number] [place] [address] 08 Sep, 2013 [facility] [place] [facility] [address] [id number] [place] [address] 08 Sep, 2013 [facility] [place] [facility] [address] [id number] [place] [address] 04 Sep, 2013 [facility] [place] [facility] [address] [id number] [place] [address] 04 Sep, 2013 [facility] [place] [facility] [address] [id number] [place] [address] Nov, 2013 [facility] [place] [facility] [address] [id number] [place] [address] Nov, [facility] [place] [facility] [address] [facility] [id number] [place] [address] Nov, [facility] [place] [facility] [address] [id number] [place] [address] Oct, [facility] [place] [facility] [address] [id number] [place] [address] Oct, [facility] [place] [facility] [address] [id number] [place] [address] Oct, [facility] [place] [facility] [address] [id number] [place] [address] Oct, [facility] [place] [facility] [address] [id number] [place] [address] Oct, [facility] [place] [facility] [address] [facility] [id number] [place] [address] Oct, [facility] [place] [facility] [address] [id number] [place] [address] Oct, [facility] [place] [facility] [address] [id number] [place] [address] Oct, [facility] [place] [facility] [address] [id number] [place] [address] Oct, [facility] [place] [facility] [address] [id number] [place] [address] Oct, [facility] [place] [facility] [address] [id number] [place] [address] Oct, [facility] [place] [facility] [address] [facility] [id number] [place] [address] Oct, [facility] [place] [facility] [address] [id number] [place] [address] Oct, [facility] [place] [facility] [address] [id number] [place] [address] Oct, [facility] [place] [facility] [address] [facility] [id number] [place] [address] Sep, [facility] [place] [facility] [address] [facility] [id number] [place] [address] Sep, [facility] [place] [facility] [address] [id number] [place] [address] Sep, [facility] [place] [facility] [address] [facility] [id number] [place] [address] Sep, 2013 [facility] [place] [facility] [address] [facility] [id number] [place] [address] Sep, [facility] [place] [facility] [address] [id number] [place] [address] Sep, [facility] [place] [facility] [address] [id number] [place] [address] Sep, [facility] [place] [facility] [address] [id number] [place] [address] Sep, [facility] [place] [facility] [address] [id number] [place] [address] Aug, [facility] [place] [facility] [address] [id number] [place] [address] Aug, [facility] [place] [facility] [address] [id number] [place] [address] Aug, [facility] [place] [facility] [address] [id number] [place] [address] Aug, [facility] [place] [facility] [address] [id number] [place] [address] Aug, [facility] [place] [facility] [address] [id number] [place] [address] Aug, [facility] [place] [facility] [address] [id number] [place] [address] Aug, [facility] [place] [facility] [address] [id number] [place] [address] Aug, [facility] [place] [facility] [address] [id number] [place] [address] July, [facility] [place] [facility] [address] [id number] [place] [address] July, [facility] [place] [facility] [address] [id number] [place] [address] July, [facility] [place] [facility] [address] [id number] [place] [address] July, [facility] [place] [facility] [address] [facility] [id number] [place] [address] July, [facility] [place] [facility] [address] [id number] [place] [address] July, [facility] [place] [facility] [address] [facility] [id number] [place] [address] July, [facility] [place] [facility] [address] [id number] [place] [address] July, [facility] [place] [facility] [address] [id number] [place] [address] Jun, [facility] [place] [facility] [address] [id number] [place] [address] Jun, [facility] [place] [facility] [address] [id number] [place] [address] Jun, [facility] [place] [facility] [address] [id number] [place] [address] Jun, [facility] [place] [facility] [address] [id number] [place] [address] Jun, [facility] [place] [facility] [address] [facility] [id number] [place] [address] Jun, [facility] [place] [facility] [address] [id number] [place] [address] Jun, [facility] [place] [facility] [address] [id number] [place] [address] Jun, [facility] [place] [facility] [address] [id number] [place] [address] Jun, [facility] [place] [facility] [address] [facility] [id number] [place] [address] Jun, [facility] [place] [facility] [address] [facility] [id number] [place] [address] Jun, [facility] [place] [facility] [address] [facility] [id number] [place] [address] Jun, [facility] [place] [facility] [address] [facility] [id number] [place] [address] May, [facility] [place] [facility] [address] [facility] [id number] [place] [address] May, [facility] [place] [facility] [address] [id number] [place] [address] May, [facility] [place] [facility] [address] [facility] [id number] [place] [address] May, [facility] [place] [facility] [address] [id number] [place] [address] May, [facility] [place] [facility] [address] [facility] [id number] [place] [address] May, [facility] [place] [facility] [address] [facility] [id number] [place] [address] May, [facility] [place] [facility] [address] [id number] [place] [address] May, [facility] [address] [id number] [place] [address] May, [facility] [address] [facility] [id number] [place] [address] May, [facility] [address] [id number] [place] [address] May, [facility] [address] [facility] [id number] [place] [address] May, [facility] [address] [id number] [place] [address] May, [facility] [address] [id number] [place] [address] May, [facility] [address] [facility] [id number] [place] [address] Apr, [facility] [address] [id number] [place] [address] Apr, [facility] [address] [id number] [place] [address] Apr, [facility] [address] [id number] [place] [address] Apr, [facility] [address] [id number] [place] [address] Apr, [facility] [address] [id number] [place] [address] Apr, [facility] [address] [id number] [place] [address] Mar, [facility] [address] [id number] [place] [address] Mar, [facility] [address] [id number] [place] [address] Mar, [facility] [address] [id number] [place] [address] Mar, [facility] [address] [id number] [place] [address] Mar, [facility] [address] [id number] [place] [address] Mar, [facility] [address] [id number] [place] [address] Mar, [facility] [address] [id number] [place] [address] Mar, [facility] [address] [id number] [place] [address] Mar, [facility] [address] [id number] [place] [address] Mar, [facility] [address] [id number] [place] [address] Mar, [facility] [address] [id number] [place] [address] Mar, [facility] [address] [id number] [place] [address] Mar, [facility] [address] [id number] [place] [address] Mar, [facility] [address] [id number] [place] [address] Feb, [facility] [address] [id number] [place] [address] Feb, [facility] [address] [id number] [place] [address] Feb, [facility] [address] [id number] [place] [address] Feb, [facility] [address] [id number] [place] [address] Feb, [facility] [address] [id number] [place] [address] Feb, [facility] [address] [id number] [place] [address] Feb, [facility] [address] [id number] [place] [address] Feb, [facility] [address] [id number] [place] [address] Feb, [facility] [address] [id number] [place] [address] Feb, [facility] [address] [id number] [place] [address] Feb, [facility] [address] [id number] [place] [address] Feb, [facility] [address] [id number] [place] [address] 05 Feb, 2012 [facility] [address] [facility] [id number] [place] [address] 05 Feb, 2012 [facility] [address] [id number] [place] [address] 05 Feb, 2012 [facility] [address] [id number] [place] [address] 05 Feb, 2012 [facility] [address] [id number] [place] [address] 24 Dec, 2012 [facility] [address] [id number] [place] [address] 24 Dec, 2012 [facility] [address] [id number] [place] [address] 16 Dec, 2012 [facility] [address] [id number] [place] [address] 16 Dec, 2012 [facility] [address] [id number] [place] [address] 16 Dec, 2012 [facility] [address] [id number] [place] [address] 16 Dec, 2012 [facility] [address] [id number] [place] [address] 14 Dec, 2012 [facility] [address] [id number] [place] [address] 14 Dec, 2012 [facility] [address] [id number] [place] [address] 10 Dec, 2012 [facility] [address] [id number] [place] [address] 10 Dec, 2012 [facility] [address] [id number] [place] [address] 10 Dec, 2012 [facility] [address] [id number] [place] [address] 10 Dec, 2012 [facility] [address] [id number] [place] [address] 03 Dec, 2012 [facility] [address] [id number] [place] [address] 25 Nov, 2012 [facility] [address] [id number] [place] [address] 20 Nov, 2012 [facility] [address] [facility] [id number] [place] [address] 18 Nov, 2012 [facility] [address] [id number] [place] [address] 16 Nov, 2012 [facility] [address] [facility] [id number] [place] [address] 12 Nov, 2012 [facility] [address] [id number] [place] [address] 11 Nov, 2012 [facility] [address] [id number] [place] [address] 05 Nov, 2012 [facility] [address] [id number] [place] [address] 15 Oct, 2012 [facility] [address] [id number] [place] [address] Oct, [facility] [address] [id number] [place] [address] 24 Sep, 2012 [facility] [address] [id number] [place] [address] Sep, [facility] [address] [id number] [place] [address] Sep, [facility] [address] [id number] [place] [address] 17 Sep, 2012 [facility] [address] [id number] [place] [address] 15 Sep, 2012 [facility] [address] [id number] [place] [address] Sep, [facility] [address] [id number] [place] [address] 08 Sep, 2012 [facility] [address] [id number] [place] [address] Aug, [facility] [address] [id number] [place] [address] 18 Aug, 2012 [facility] [address] [id number] [place] [address] 16 Aug, 2012 [facility] [address] [id number] [place] [address] 13 Aug, 2012 [facility] [address] [id number] [place] [address] Aug, [facility] [address] [id number] [place] [address] Aug, [facility] [address] [id number] [place] [address] 04 Aug, 2012 [facility] [address] [id number] [place] [address] Aug, [facility] [address] [id number] [place] [address] July, [facility] [address] [id number] [place] [address] July, [facility] [address] [id number] [place] [address] July, [facility] [address] [facility] [id number] [place] [id number] July, [facility] [address] [id number] [place] [address] July, [facility] [address] [id number] [place] [address] Jun, [facility] [address] [id number] [place] [address] May, [facility] [address] [id number] [place] [address] 14 May, 2012 [facility] [address] [id number] [place] [address] 04 May, 2012 [facility] [address] [id number] [place] [address] Apr, [facility] [address] [id number] [place] [address] Apr, [facility] [address] [id number] [place] [address] Apr, [facility] [address] [id number] [place] [address] Mar, [facility] [address] [id number] [place] [address] Mar, [facility] [address] [id number] [place] [address] Mar, [facility] [address] [id number] [place] [address] Mar, [facility] [address] [id number] [place] [address] Mar, [facility] [address] [id number] [place] [address] Mar, [facility] [address] [id number] [place] [address] Mar, [facility] [id number] [place] [address] Feb, [facility] [address] [id number] [place] [address] Feb, [facility] [address] [id number] [place] [address] Feb, [facility] [address] [id number] [place] [address] Feb, [facility] [address] [id number] [place] [address] Feb, [facility] [address] [id number] [place] [address] Feb, [facility] [address] [id number] [place] [address] Feb, [facility] [address] [id number] [place] [address] Feb, [facility] [address] [id number] [place] [address] Jan, [facility] [address] [id number] [place] [address] Jan, [facility] [address] [id number] [place] [address] Jan, [facility] [address] [id number] [place] [address] Jan, [facility] [address] [id number] [place] [address] Jan, [facility] [address] [id number] [place] [address] Jan, [facility] [address] [id number] [place] [address] Jan, [facility] [address] [id number] [place] [address] Jan, [facility] [address] [id number] [place] [address] Jan, [facility] [address] [id number] [place] [address] Jan, [facility] [address] [id number] [place] [address] Jan, [facility] [address] [id number] [place] [address] Jan, [facility] [address] [id number] [place] [address] Jan, [facility] [address] [id number] [place] [address] Jan, [facility] [address] [id number] [place] [address] Jan, [facility] [address] [id number] [place] [address] Jan, [facility] [address] [id number] [place] [address] Dec, [facility] [address] [id number] [place] [address] Dec, [facility] [address] [id number] [place] [address] Dec, [facility] [address] [id number] [place] [address] Dec, [facility] [address] [id number] [place] [address] Dec, [facility] [address] [id number] [place] [address] Dec, [facility] [address] [id number] [place] [address] Dec, [facility] [address] [id number] [place] [address] Dec, [facility] [address] [id number] [place] [address] 08 Dec, 2011 [facility] [address] [id number] [place] [address] 05 Dec, 2011 [facility] [address] [id number] [place] [address] 18 Nov, 2011 [facility] [address] [id number] [place] [address] 13 Nov, 2011 [facility] [address] [id number] [place] [address] 24 Oct, 2011 [facility] [address] [id number] [place] [address] Oct, [facility] [address] [id number] [place] [address] Oct, [facility] [address] [id number] [place] [address] Oct, [facility] [address] [id number] [place] [address] Oct, [facility] [address] [id number] [place] [address] Oct, [facility] [address] [id number] [place] [address] Oct, [facility] [address] [id number] [place] [address] Sep, [facility] [address] [id number] [place] [address] Aug, [facility] [address] [id number] [place] [address] Aug, [facility] [address] [id number] [place] [address] Aug, [facility] [address] [id number] [place] [address] Aug, [facility] [address] [id number] [place] [address] Aug, [facility] [address] [id number] [place] [address] July, [facility] [address] [id number] [place] [address] July, [facility] [address] [id number] [place] [address] July, [facility] [address] [id number] [place] [address] Jun, [facility] [address] [id number] [place] [address] Jun, [facility] [address] [id number] [place] [address] Jun, [facility] [address] [id number] [place] [address] Jun, [facility] [address] [id number] [place] [address] May, [facility] [address] [id number] [place] [address] 30 May, 2011 [facility] [address] [facility] [id number] [place] [address] 29 May, 2011 [facility] [address] [id number] [place] [address] 28 May, 2011 [facility] [address] [id number] [place] [address] 23 May, 2011 [facility] [address] [id number] [place] [address] 22 May, 2011 [facility] [address] [id number] [place] [address] 21 May, 2011 [facility] [address] [id number] [place] [address] 19 May, 2011 [facility] [address] [id number] [place] [address] 08 May, 2011 [facility] [address] [id number] [place] [address] 05 May, 2011 [facility] [address] [id number] [place] [address] 02 May, 2011 [facility] [address] [id number] [place] [address] May, [facility] [address] [id number] [place] [address] 31 Mar, 2011 [facility] [address] [id number] [place] [address] Mar, [facility] [address] [id number] [place] [address] 28 Feb, 2011 [facility] [address] [id number] [place] [address] Feb, [facility] [address] [id number] [place] [address] Feb, [facility] [address] [id number] [place] [address] 15 Feb, 2011 [facility] [address] [id number] [place] [address] 13 Feb, 2011 [facility] [address] [id number] [place] [address] 13 Feb, 2011 [facility] [address] [id number] [place] [address] Feb, [facility] [address] [id number] [place] [address] Jan, [facility] [address] [id number] [place] [address] Jan, [facility] [address] [id number] [place] [address] Jan, [facility] [address] [id number] [place] [address] Jan, [facility] [id number] [place] [address] Jan, [facility] [address] [id number] [place] [address] Jan, [facility] [address] [id number] [place] [address] Dec, [facility] [address] [id number] [place] [address] Dec, [facility] [address] [id number] [place] [address] Dec, [facility] [id number] [place] [address] July, [facility] [id number] [place] [address] July, [facility] [id number] [place] [address] 08 Feb, 2010 [facility] [id number] [place] [address] Jan, [facility] [id number] [place] [address] Dec, [facility] [id number] [place] [address] Dec, [facility] [id number] [place] [address] Sep, [facility] [id number] [place] [address] Aug, [facility] [id number] [place] [address] Jun, [facility] [address] [id number] [place] [address] Jun, [facility] [id number] [place] [address] Jan, [facility] [id number] [place] [address] Jan, [facility] [id number] [place] [address] Jan, [facility] [id number] [place] [address] Jan, [facility] [id number] [place] [address] Dec, [facility] [id number] [place] [address] Dec, [facility] [id number] [place] [address] Dec, [facility] [id number] [place] [address] Nov, [facility] [id number] [place] [address] July, [facility] [id number] [place] [address] May, [facility] [id number] [place] [address] Apr, [facility] [address] [facility] [id number] [place] [address] Feb, [facility] [address] [facility] [id number] [place] [address] Dec, IMMUNIZATIONS No Known Immunizations SOCIAL HISTORY [...]
--- OUTSIDE RECORDS SUMMARY | 2019-06-22 19:59 | XMS REPORT ---
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 Active 224613641 Problem Diabetes E11.9 Active 788868679 Problem Type 2 diabetes mellitus with complication E11.8 Active 134779802 Problem Post laminectomy syndrome M96.1 Acti ve 99551194 Problem Bipolar 1 disorder F31.9 Active 3 81554667 Problem New daily persistent headache G44.52 Active 277559535 Problem Type 2 diabetes mellitus with hyperglycemia E11.65 Active 64433003 Problem Other chronic pain G89.29 Active 8 5532693 Problem Essential hypertension I10 Active 49957634 Problem Acute bilateral low back pain with right-sided sciatica M54.41 Active 091271487 Problem Bipolar disorder, in partial remission, most rec ent episode manic F31.73 Active 72122031 Problem Seasonal allergic rhinitis due to pollen J30.1 Active 19625581 Problem Hyperlipidemia, unspecified E78.5 Ac tive 63174108 Problem Eye exam normal Z01.00 Active 2438 84582 Problem Extreme poverty Z59.5 Active 1140 3006 Problem Lumbago with sciatica, left side M54.42 Active 401362992 Problem Hypertriglyceridemia E78.1 Active 111741927 Problem Insulin long-term use Z79.4 Active 427475627 Problem Rhinosinusitis J32.9 Active 17338 000 ALLERGIES No Information ENCOUNTERS Encounter Location Date Diagnosis [facility] [address] [address] 08 Aug, 2019 [facility] [address] [address] 07 Jun, 2019 [facility] [address] [address] May, [facility] [address] [address] May, [facility] [address] [address] May, [facility] [address] [address] May, Borderline intellectual functioning R41. 83 [place] [address] [address] 09 May, 2019 Type 2 diabetes mellitus with complicati on E11.8 [place] [address] [address] 09 May, 2019 Bipolar 1 disorder F31.9 ; Type 2 diabet es mellitus with complication E11.8 ; Pain of right thumb M79.644 ; Extreme poverty Z59.5 and Low back pain M54.5 [place] [address] [address] 09 May, 2019 [facility] [address] [address] Apr, Bipolar 1 disorder F31.9 ; Borderline in tellectual functioning R41.83 and Extreme poverty Z59.5 [facility] [address] [facility] [id number] [address] [place] [address] Apr, Seasonal allergic rhinitis d ue to pollen J30.1 [facility] [address] [address] Apr, Essential hypertension I10 and Diabetes E11.9 [place] [address] [address] Apr, [place] [address] [address] Mar, Bipolar 1 disorder F31.9 ; Borderline in tellectual functioning R41.83 and Extreme poverty Z59.5 [place] [address] [address] Mar, Exercise counseling Z71.82 [place] [address] [address] Mar, [place] [address] [address] Mar, Bipolar disorder, in partial remission, most recent episode manic F31.73 and 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 [place] [address] [address] Mar, [place] [address] [address] Mar, Exercise counseling Z71.82 [place] [address] [address] Feb, Bipolar 1 disorder F31.9 ; Borderline in tellectual functioning R41.83 and Extreme poverty Z59.5 [place] [address] [address] Feb, [place] [address] [address] Feb, Type 2 diabetes mellitus with complicati on E11.8 [facility] [address] [facility] [id number] [place] [address] Feb, Acute low back pain without sciatica, unspecified back pain laterality M54.5 [place] [address] [address] Feb, Bipolar 1 disorder F31.9 ; Borderline in tellectual functioning R41.83 and Extreme poverty Z59.5 [place] [address] [address] Jan, Bipolar 1 disorder F31.9 ; Borderline in tellectual functioning R41.83 and Extreme poverty Z59.5 [facility] [address] [address] Jan, [facility] [address] [address] Jan, Type 2 diabetes mellitus with complicati on E11.8 [facility] [address] [address] Jan, Type 2 diabetes mellitus with complicati on E11.8 ; Dysuria R30.0 and Diarrhea, unspecified type R19.7 [place] [address] [address] Jan, Bipolar 1 disorder F31.9 ; Borderline in tellectual functioning R41.83 and Extreme poverty Z59.5 [place] [address] [address] Dec, [facility] [address] [address] Dec, [facility] [address] [address] Dec, [facility] [address] [address] Dec, [facility] [address] [address] Dec, Rhinosinusitis J32.9 [facility] [address] [address] Dec, [facility] [address] [address] Dec, Bipolar 1 disorder F31.9 ; Borderline in tellectual functioning R41.83 and Extreme poverty Z59.5 [facility] [address] [address] Dec, Type 2 diabetes mellitus with complicati on E11.8 and Type 2 diabetes mellitus with hyperglycemia E11.65 [place] [address] [address] Dec, [place] [address] [address] Dec, Type 2 diabetes mellitus with complicati on E11.8 ; Insulin long-term use Z79.4 ; Hyperglycemia R73.9 and Yeast infection B37.9 [place] [address] [address] Dec, Encounter for immunization Z23 [place] [address] [address] Nov, [place] [address] [address] Nov, Bipolar 1 disorder F31.9 ; Borderline in tellectual functioning R41.83 and Extreme poverty Z59.5 [place] [address] [address] Nov, [place] [address] [address] Nov, [place] [address] [address] Nov, Borderline intellectual functioning R41. 83 and Bipolar disorder, in partial remission, most recent episode manic F31.73 [facility] [place] [id number] [place] [address] Nov, Epigastric abdominal pain R1 0.13 [place] [address] [address] Nov, Bipolar 1 disorder F31.9 ; Borderline in tellectual functioning R41.83 and Extreme poverty Z59.5 [facility] [place] [id number] [address] [place] [address] Oct, Dysuria R30.0 and Acute cyst itis without hematuria N30.00 [facility] [address] [place] [address] [address] Oct, [facility] [address] [address] Oct, [facility] [address] [address] Oct, Bipolar 1 disorder F31.9 ; Borderline in tellectual functioning R41.83 and Extreme poverty Z59.5 [facility] [address] [address] Oct, [facility] [address] [address] Oct, [facility] [address] [address] Oct, Bipolar disorder, in partial remission, most recent episode manic F31.73 and 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 [place] [address] [address] Oct, Bipolar 1 disorder F31.9 ; Borderline in tellectual functioning R41.83 and Extreme poverty Z59.5 [facility] [address] [address] Oct, Diarrhea, unspecified type R19.7 [facility] [address] [id number] [place] [id number] Sep, Dental examination Z01.20 and Dental car ies K02.9 [facility] [address] [facility] [id number] [place] [address] Sep, Mouth pain K13.79 [facility] [address] [address] Sep, [facility] [address] [address] Sep, Bipolar 1 disorder F31.9 ; Borderline in tellectual functioning R41.83 and Extreme poverty Z59.5 [facility] [address] [address] Sep, [place] [address] [address] Sep, [place] [address] [address] Sep, Diabetes E11.9 ; Hyperglycemia R73.9 ; L eliseo term current use of insulin Z79.4 and Diarrhea, unspecified type R19.7 [place] [address] [address] Sep, [place] [address] [address] Sep, Bipolar 1 disorder F31.9 ; Borderline in tellectual functioning R41.83 and Extreme poverty Z59.5 [place] [address] [address] Sep, [place] [address] [address] Sep, [place] [address] [address] Aug, Bipolar 1 disorder F31.9 ; Borderline in tellectual functioning R41.83 and Extreme poverty Z59.5 [place] [address] [address] Aug, Exercise counseling Z71.82 [place] [address] [address] Aug, Bipolar 1 disorder F31.9 ; Borderline in tellectual functioning R41.83 and Extreme poverty Z59.5 [place] [address] [address] Aug, Borderline intellectual functioning R41. 83 and Bipolar disorder, in partial remission, most recent episode manic F31.73 [place] [address] [address] Aug, Low back pain M54.5 [place] [address] [address] Aug, Borderline intellectual functioning R41. 83 and Bipolar disorder, in partial remission, most recent episode manic F31.73 [place] [address] [address] July, Acute superficial gastritis without hemo rrhage K29.00 ; Low back pain M54.5 and Other chronic pain G89.29 [place] [address] [address] July, [place] [address] [address] July, [place] [address] [address] Jun, [facility] [address] [facility] [id number] [address] [place] [address] Jun, Bilateral lower extremity ed epi R60.0 [place] [address] [address] Jun, Borderline intellectual functioning R41. 83 and Bipolar disorder, in partial remission, most recent episode manic F31.73 [place] [address] [address] Jun, [place] [address] [address] May, Bronchitis J40 [place] [address] [address] May, Screening for breast cancer Z12.31 and E ncounter for immunization Z23 [place] [address] [address] May, Bipolar 1 disorder F31.9 ; Borderline in tellectual functioning R41.83 and Extreme poverty Z59.5 [place] [address] [address] Apr, [place] [address] [address] 07 Apr, 2018 Bipolar 1 disorder F31.9 ; Borderline in tellectual functioning R41.83 and Extreme poverty Z59.5 [place] [address] [address] 05 Apr, 2018 Irritable bowel syndrome with diarrhea K 58.0 and Dental abscess K04.7 [place] [address] [address] Mar, [place] [address] [place] [address] Mar, [place] [address] [address] Mar, Bipolar 1 disorder F31.9 ; Borderline in tellectual functioning R41.83 and Extreme poverty Z59.5 [place] [address] [address] Mar, Hypertriglyceridemia E78.1 [place] [address] [address] Mar, Borderline intellectual functioning R41. 83 and Bipolar disorder, in partial remission, most recent episode manic F31.[address] [address] Mar, Bipolar 1 disorder F31.9 ; Borderline in tellectual functioning R41.83 and Extreme poverty Z59.5 [place] [address] [address] Feb, Generalized abdominal pain R10.84 and Di arrhea, unspecified type R19.7 [place] [address] [address] Feb, [place] [id number] Feb, Myalgia M79.10 and Nausea R11.0 [place] [address] [address] Feb, Bipolar 1 disorder F31.9 ; Borderline in tellectual functioning R41.83 and Extreme poverty Z59.5 [place] [address] [address] Feb, [place] [address] [place] [address] Feb, Diabetes E11.9 ; Hyperglycemia R73.9 and Diarrhea, unspecified R19.7 [place] [address] [address] Feb, Diarrhea, unspecified type R19.7 ; Abdom inal pain R10.9 and Encounter for immunization Z23 [place] [address] [address] Jan, Bipolar 1 disorder F31.9 ; Borderline in tellectual functioning R41.83 and Extreme poverty Z59.5 [place] [address] [address] Dec, Bipolar 1 disorder F31.9 ; Borderline in tellectual functioning R41.83 and Extreme poverty Z59.5 [place] [address] [address] Nov, [address] [address] Nov, Hypertriglyceridemia E78.1 [place] [address] [address] Nov, Bipolar 1 disorder F31.9 ; Borderline in tellectual functioning R41.83 and Extreme poverty Z59.5 [place] [address] [address] Nov, Type 2 diabetes mellitus with complicati on E11.8 [place] [address] [address] Nov, Borderline intellectual functioning R41. 83 and Bipolar disorder, in partial remission, most recent episode manic F31.73 [place] [address] [address] Nov, Type 2 diabetes mellitus with complicati on E11.8 [place] [address] [address] 11 Nov, 2017 Bipolar 1 disorder F31.9 ; Borderline in tellectual functioning R41.83 and Extreme poverty Z59.5 [place] [address] [address] Nov, Type 2 diabetes mellitus with complicati on E11.8 ; Pain of left upper arm M79.622 ; Pain in right upper arm M79.621 ; Hyperglycemia R73.9 ; Lumbago with sciatica, left side M54.42 and Other chronic pain G89.[address] [address] Oct, Bipolar 1 disorder F31.9 ; Borderline in tellectual functioning R41.83 and Extreme poverty Z59.[address] [address] Oct, Type 2 diabetes mellitus with hyperglyce didi E11.65 ; 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.4 and Other acute gastritis without hemorrhage K29.[address] [address] Oct, Bipolar 1 disorder F31.9 ; Borderline in tellectual functioning R41.83 and Extreme poverty Z59.[address] [address] Sep, Diarrhea, unspecified R19.7 and Vomiting , unspecified R11.[address] [address] Aug, Type 2 diabetes mellitus with complicati on E11.[address] [address] Aug, [address] [address] Aug, Bipolar 1 disorder F31.9 ; Borderline in tellectual functioning R41.83 and Extreme poverty Z59.5 [place] [address] [address] Aug, Borderline intellectual functioning R41. 83 and Bipolar disorder, in partial remission, most recent episode manic F31.73 [place] [address] [address] Aug, Bipolar 1 disorder F31.9 [place] [address] [address] Aug, [place] [address] [address] Aug, [place] [address] [address] Aug, Bipolar 1 disorder F31.9 ; Borderline in tellectual functioning R41.83 and Extreme poverty Z59.5 [place] [address] [address] July, Type 2 diabetes mellitus with complicati on E11.8 [place] [address] [address] July, Bipolar 1 disorder F31.9 ; Borderline in tellectual functioning R41.83 and Extreme poverty Z59.5 [place] [address] [address] Jun, Bipolar 1 disorder F31.9 ; Borderline in tellectual functioning R41.83 and Extreme poverty Z59.5 [place] [address] [address] Jun, Bipolar 1 disorder F31.9 ; Borderline in tellectual functioning R41.83 and Extreme poverty Z59.5 [place] [address] [address] Jun, Bipolar 1 disorder F31.9 ; Borderline in tellectual functioning R41.83 and Extreme poverty Z59.5 [place] [address] [address] May, Urinary tract infection without hematuri a, site unspecified N39.0 [place] [address] [place] [address] May, Bipolar 1 disorder F31.9 ; Borderline in tellectual functioning R41.83 and Extreme poverty Z59.5 [place] [address] [address] Apr, Diabetes E11.9 and Breast cancer screeni ng Z12.31 [place] [address] [address] 20 Apr, 2017 Bipolar 1 disorder F31.9 and 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 [place] [address] [place] [address] Mar, Bipolar 1 disorder F31.9 ; Borderline in tellectual functioning R41.83 and Extreme poverty Z59.5 [place] [address] [address] Mar, New daily persistent headache G44.52 ; L eg pain 729.5 and History of carpal tunnel release Z98.890 [place] [address] [address] Mar, Hyperlipidemia, unspecified E78.5 [place] [address] [address] Mar, Bipolar 1 disorder F31.9 ; Borderline in tellectual functioning R41.83 and Extreme poverty Z59.5 [place] [address] [address] Feb, Bipolar 1 disorder F31.9 ; Borderline in tellectual functioning R41.83 and Extreme poverty Z59.5 [place] [address] [address] Feb, Diabetes E11.9 [place] [address] [address] Feb, Viral syndrome B34.9 [place] [address] [address] Jan, Other viral agents as the cause of disea ses classified elsewhere B97.89 and Acute upper respiratory infection, unspecified J06.9 [place] [address] [address] 16 Jan, 2017 Bipolar 1 disorder F31.9 and 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 [place] [address] [address] Jan, Bipolar 1 disorder F31.9 ; Borderline in tellectual functioning R41.83 and Extreme poverty Z59.5 [place] [address] [address] Dec, Diabetes E11.9 [place] [address] [address] Dec, Diabetes E11.9 and Encounter for immuniz ation Z23 [place] [address] [address] Dec, Bipolar 1 disorder F31.9 ; Borderline in tellectual functioning R41.83 and Extreme poverty Z59.5 [place] [address] [address] Dec, Back pain M54.9 [place] [address] [address] 07 Nov, 2016 [place] [address] [address] Nov, Bipolar 1 disorder F31.9 ; Borderline in tellectual functioning R41.83 and Extreme poverty Z59.5 [place] [address] [address] 05 Nov, 2016 Bipolar 1 disorder F31.9 ; Borderline in tellectual functioning R41.83 and Extreme poverty Z59.5 [place] [address] [address] Oct, Borderline intellectual functioning R41. 83 and Bipolar 1 disorder F31.9 [place] [address] [address] Oct, Bipolar 1 disorder F31.9 ; Borderline in tellectual functioning R41.83 and Extreme poverty Z59.5 [place] [address] [address] Oct, Back pain M54.9 [place] [address] [address] Oct, Borderline intellectual functioning R41. 83 and Type 2 diabetes mellitus with complication E11.8 [place] [address] [address] Sep, Bipolar 1 disorder F31.9 ; Borderline in tellectual functioning R41.83 and Extreme poverty Z59.5 [place] [address] [address] Sep, Borderline intellectual functioning R41. 83 and Bipolar 1 disorder F31.9 [place] [address] [address] Sep, Bipolar 1 disorder F31.9 ; Borderline in tellectual functioning R41.83 and Extreme poverty Z59.5 [place] [address] [address] Aug, Diabetes E11.9 ; Hyperlipidemia, unspeci fied E78.5 and Lumbar radiculopathy M54.16 [place] [address] [address] 15 Aug, 2016 Bipolar 1 disorder F31.9 ; Borderline in tellectual functioning R41.83 and Extreme poverty Z59.5 [place] [address] [address] Aug, [place] [address] [address] 08 Aug, 2016 [place] [address] [address] Aug, [facility] [address] [place] [id number] [place] [address] July, [facility] [address] [address] July, Acute bilateral low back pain with right -sided sciatica M54.41 [facility] [address] [address] July, Bipolar 1 disorder F31.9 ; Borderline in tellectual functioning R41.83 and Extreme poverty Z59.5 [place] [address] [place] [id number] [place] [address] July, Back pain M54.9 and Diabetes E11.9 [place] [address] [address] Jun, Bipolar 1 disorder F31.9 ; Borderline in tellectual functioning R41.83 and Extreme poverty Z59.5 [place] [address] [address] Jun, Bipolar 1 disorder F31.9 ; Borderline in tellectual functioning R41.83 and Extreme poverty Z59.5 [place] [address] [place] [id number] [place] [address] May, Visit for pelvic exam Z01.419 ; Acute va ginitis N76.0 and Diabetes E11.9 [place] [address] [place] [id number] [place] [address] May, Bipolar 1 disorder F31.9 ; Borderline in tellectual functioning R41.83 and Extreme poverty Z59.5 [place] [address] [address] May, [place] [address] [address] May, [facility] [address] [address] May, Bipolar 1 disorder F31.9 ; Borderline in tellectual functioning R41.83 and Extreme poverty Z59.5 [place] [address] [address] May, Hyperlipidemia, unspecified E78.5 [place] [address] [address] 13 Apr, 2016 Breast cancer screening Z12.39 [place] [address] [address] Mar, [place] [address] [address] Mar, Bipolar disorder, current episode mixed, unspecified F31.60 [place] [address] [address] Mar, Bipolar 1 disorder F31.9 ; Borderline in tellectual functioning R41.83 and Extreme poverty Z59.5 [place] [address] [address] Feb, Acute nasopharyngitis J00 [place] [address] [address] 27 Feb, 2016 Dental examination Z01.20 [place] [address] [address] Feb, Dental cavities K02.9 and Chronic period ontitis, unspecified K05.30 [place] [address] [address] Feb, Low back pain M54.5 and Extreme poverty Z59.5 [place] [address] [address] Feb, [place] [address] [address] 05 Feb, 2016 Routine gynecological examination V72.31 ; Breast cancer screening Z12.39 and Herpes simplex type 1 infection B00.9 [place] [address] [address] Feb, Diabetes E11.9 [place] [address] [place] [id number] [place] [address] 01 Feb, 2016 Encounter for dental examination and leti aning without abnormal findings Z01.20 [place] [address] [address] Jan, Hyperlipidemia, unspecified E78.5 [place] [address] [address] Jan, Bipolar 1 disorder F31.9 ; Borderline in tellectual functioning R41.83 and Extreme poverty Z59.5 [place] [address] [address] 18 Jan, 2016 Diabetes E11.9 [place] [address] [address] 17 Jan, 2016 Diabetes E11.9 [place] [address] [address] 14 Dec, 2015 Bipolar 1 disorder F31.9 ; Borderline in tellectual functioning R41.83 and Extreme poverty Z59.5 [place] [address] [address] 13 Dec, 2015 Bipolar disorder, current episode mixed, unspecified F31.60 and 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 [place] [address] [address] 16 Nov, 2015 Bipolar 1 disorder F31.9 ; Borderline in tellectual functioning R41.83 ; Extreme poverty Z59.5 and Non compliance with medical treatment Z91.19 [place] [address] [address] Oct, [place] [address] [address] Oct, Dental caries K02.9 [place] [address] [address] Oct, Low back pain M54.5 and Other chronic pa in G89.29 [place] [address] [address] Oct, Bipolar 1 disorder F31.9 ; Borderline in tellectual functioning R41.83 ; Extreme poverty Z59.5 and Non compliance with medical treatment Z91.19 [place] [address] [address] Oct, [place] [address] [address] Oct, [place] [address] [address] Oct, Dental examination Z01.20 [place] [address] [address] Oct, Bipolar 1 disorder F31.9 ; Borderline in tellectual functioning R41.83 ; Extreme poverty Z59.5 and Non compliance with medical treatment Z91.19 [place] [address] [address] Oct, [place] [address] [address] Sep, Type 2 diabetes mellitus with complicati on E11.8 [place] [address] [address] Sep, Bipolar disorder, current episode mixed, unspecified F31.60 [place] [address] [address] Sep, Bipolar disorder, current episode mixed, unspecified F31.60 [place] [address] [address] Sep, Bipolar disorder, in partial remission, most recent episode manic F31.73 ; 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 ; Extreme poverty Z59.5 and Non compliance with medical treatment Z91.19 [place] [address] [address] Aug, Bipolar disorder, in partial remission, most recent episode manic F31.73 ; 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 ; Extreme poverty Z59.5 and Non compliance with medical treatment Z91.19 [place] [address] [address] Aug, Bipolar disorder, in partial remission, most recent episode manic F31.73 ; 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 ; Extreme poverty Z59.5 and Non compliance with medical treatment Z91.19 [place] [address] [address] Aug, [place] [address] [address] July, Bipolar disorder, in partial remission, most recent episode manic F31.73 ; 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 ; Extreme poverty Z59.5 and Non compliance with medical treatment Z91.19 [place] [address] [address] July, Bipolar disorder, current episode mixed, unspecified F31.60 [place] [address] [address] July, Bipolar disorder, in partial remission, most recent episode manic F31.73 ; 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 ; Extreme poverty Z59.5 and Non compliance with medical treatment Z91.19 [place] [address] [address] July, 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 care 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 c Z79.891 and Chronic pain G89.29 [place] [address] [address] Jun, senior care current use of opiate analgesi c Z79.891 and Bipolar 1 disorder F31.9 [place] [address] [address] Jun, [place] [address] [address] Jun, [place] [address] [address] Jun, [place] [address] [address] Jun, Bipolar disorder, in partial remission, most recent episode manic F31.73 ; 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 and Non compliance with medical treatment Z91.19 [place] [address] [address] May, Bipolar disorder, in partial remission, most recent episode manic F31.73 ; 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 and Non compliance with medical treatment Z91.19 [place] [address] [address] May, Bipolar disorder, in partial remission, most recent episode manic F31.73 [place] [address] [address] May, Diabetes E11.9 and Chronic pain G89.[address] [address] May, [address] [address] May, Bipolar disorder, in partial remission, most recent episode manic F31.73 ; Non compliance with medical treatment Z91.19 and 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 [place] [address] [address] May, Type 2 diabetes mellitus with complicati on E11.8 and Back pain M54.9 [place] [address] [address] May, Bipolar disorder, in partial remission, most recent episode manic F31.73 and Borderline intellectual functioning R41.[address] [address] Apr, [address] [address] Apr, [address] [address] Apr, [place] [address] [address] 09 Apr, 2015 Diabetes E11.9 ; Irritable bowel syndrom e with diarrhea K58.0 and Lumbar radiculopathy M54.16 [place] [address] [address] 02 Apr, 2015 Breast screening Z12.39 [place] [address] [place] [address] Apr, Bipolar disorder, in partial remission, most recent episode manic F31.73 ; Non compliance with medical treatment Z91.19 and 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1 [place] [address] [address] Mar, Bipolar disorder, in partial remission, most recent episode manic F31.73 ; 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 and Extreme poverty Z59.5 [place] [address] [address] Feb, Bipolar disorder, in partial remission, most recent episode manic F31.73 ; 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 and Extreme poverty Z59.5 [place] [address] [address] Feb, Bipolar disorder, in partial remission, most recent episode manic F31.73 ; 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 and Extreme poverty Z59.5 [place] [address] [address] Feb, [place] [address] [address] Jan, Type 2 diabetes mellitus with complicati on E11.8 and Petechiae R23.3 [place] [address] [place] [address] Jan, Type 2 diabetes mellitus with complicati on E11.8 ; Edema, unspecified R60.9 ; Petechiae R23.3 and Diabetes E11.9 [place] [address] [address] Jan, Bipolar disorder, in partial remission, most recent episode manic F31.73 ; 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 and Extreme poverty Z59.5 [place] [address] [address] Jan, Bipolar disorder, in partial remission, most recent episode manic F31.73 ; 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 and Extreme poverty Z59.5 [place] [address] [address] Dec, Bipolar disorder, in partial remission, most recent episode manic F31.73 [place] [address] [address] Dec, Edema, due to unspecified malnutrition t ype, unspecified edema R60.9 and Essential hypertension I10 [place] [address] [address] Dec, Bipolar disorder, in partial remission, most recent episode manic F31.73 [place] [address] [address] Nov, Bipolar I disorder, most recent episode (or current) mixed, unspecified 296.[address] [place] [address] Nov, Stress incontinence, female 625.6 ; Back pain 724.5 and Leg pain 729.5 [facility] [address] [address] Nov, Generalized anxiety disorder 300.02 and Bipolar II disorder 296.89 [facility] [address] [address] Nov, Bipolar I disorder, most recent episode (or current) mixed, unspecified 296.60 [facility] [address] [address] Oct, [facility] [address] [address] Oct, [facility] [address] [address] Oct, [facility] [address] [address] Oct, Bipolar I disorder, most recent episode (or current) mixed, unspecified 296.60 [facility] [address] [address] Sep, Diabetes 250.00 [facility] [address] [address] Sep, Bipolar I disorder, most recent episode (or current) mixed, unspecified 296.60 [facility] [address] [address] Sep, [facility] [address] [address] Sep, [facility] [address] [address] Sep, Bipolar I disorder, most recent episode (or current) mixed, unspecified 296.60 [facility] [address] [address] Sep, Bipolar I disorder, most recent episode (or current) mixed, unspecified 296.60 [facility] [address] [place] [id number] [place] [address] Sep, [facility] [address] [address] Sep, Anxiety 300.00 ; Diabetes 250.00 and Hyp erlipidemia 272.4 [facility] [address] [address] Aug, [facility] [address] [address] Aug, [facility] [address] [address] Aug, [facility] [address] [address] Aug, Bipolar I disorder, most recent episode (or current) mixed, unspecified 296.60 [facility] [address] [address] Aug, Generalized anxiety disorder 300.02 and Bipolar II disorder 296.89 [facility] [address] [address] July, Bipolar I disorder, most recent episode (or current) mixed, unspecified 296.60 [facility] [address] [address] July, Cough 786.2 [facility] [address] [address] July, Bipolar I disorder, most recent episode (or current) mixed, unspecified 296.60 [facility] [address] [address] Jun, Diabetes 250.00 [facility] [address] [address] Jun, [facility] [address] [address] Jun, [facility] [address] [place] [address] May, [facility] [place] [facility] [address] [facility] [id number] [place] [address] May, [facility] [place] [facility] [address] [facility] [id number] [place] [address] May, [facility] [place] [facility] [address] [id number] [place] [address] May, [facility] [place] [facility] [address] [id number] [place] [address] May, [facility] [place] [facility] [address] [facility] [id number] [place] [address] May, [facility] [place] [facility] [address] [id number] [place] [address] Apr, [facility] [place] [facility] [address] [id number] [place] [address] Apr, [facility] [place] [facility] [address] [id number] [place] [address] Apr, [facility] [place] [facility] [address] [id number] [place] [address] Apr, [facility] [place] [facility] [address] [id number] [place] [address] Apr, [facility] [place] [facility] [address] [id number] [place] [address] Apr, [facility] [place] [facility] [address] [id number] [place] [address] Apr, [facility] [place] [facility] [address] [facility] [id number] [place] [address] Apr, [facility] [place] [facility] [address] [id number] [place] [address] Mar, [facility] [place] [facility] [address] [id number] [place] [address] Mar, [facility] [place] [facility] [address] [id number] [place] [address] Mar, [facility] [place] [facility] [address] [id number] [place] [address] Mar, [facility] [place] [facility] [address] [id number] [place] [address] Mar, [facility] [place] [facility] [address] [id number] [place] [address] Mar, [facility] [place] [facility] [address] [id number] [place] [address] Mar, [facility] [place] [facility] [address] [facility] [id number] [place] [address] Mar, [facility] [place] [facility] [address] [id number] [place] [address] Feb, [facility] [place] [facility] [address] [id number] [place] [address] Feb, [facility] [place] [facility] [address] [id number] [place] [address] Feb, [facility] [place] [facility] [address] [id number] [place] [address] Feb, [facility] [place] [facility] [address] [id number] [place] [address] Feb, [facility] [place] [facility] [address] [id number] [place] [address] Feb, [facility] [place] [facility] [address] [id number] [place] [address] Feb, [facility] [place] [facility] [address] [id number] [place] [address] Feb, [facility] [place] [facility] [address] [id number] [place] [address] Feb, [facility] [place] [facility] [address] [id number] [place] [address] Feb, [facility] [place] [facility] [address] [id number] [place] [address] Jan, [facility] [place] [facility] [address] [id number] [place] [address] Jan, [facility] [place] [facility] [address] [id number] [place] [address] Jan, [facility] [place] [facility] [address] [id number] [place] [address] Jan, [facility] [place] [facility] [address] [id number] [place] [address] Jan, [facility] [place] [facility] [address] [id number] [place] [address] Jan, [facility] [place] [facility] [address] [id number] [place] [address] Jan, [facility] [place] [facility] [address] [id number] [place] [address] Jan, [facility] [place] [facility] [address] [id number] [place] [address] Jan, [facility] [place] [facility] [address] [id number] [place] [address] Jan, [facility] [place] [facility] [address] [id number] [place] [address] Jan, [facility] [place] [facility] [address] [id number] [place] [address] Jan, [facility] [place] [facility] [address] [id number] [place] [address] Jan, [facility] [place] [facility] [address] [id number] [place] [address] Jan, [facility] [place] [facility] [address] [id number] [place] [address] Jan, [facility] [place] [facility] [address] [place] [id number] [place] [address] Dec, [facility] [place] [facility] [address] [id number] [place] [address] Dec, [facility] [place] [facility] [address] [id number] [place] [address] 16 Dec, 2013 [facility] [place] [facility] [address] [id number] [place] [address] 16 Dec, 2013 [facility] [place] [facility] [address] [id number] [place] [address] 09 Dec, 2013 [facility] [place] [facility] [address] [id number] [place] [address] 09 Dec, 2013 [facility] [place] [facility] [address] [id number] [place] [address] 07 Dec, 2013 [facility] [place] [facility] [address] [id number] [place] [address] 07 Dec, 2013 [facility] [place] [facility] [address] [id number] [place] [address] 25 Sep, 2013 [facility] [place] [facility] [address] [id number] [place] [address] 25 Sep, 2013 [facility] [place] [facility] [address] [id number] [place] [address] 10 Sep, 2013 [facility] [place] [facility] [address] [id number] [place] [address] 10 Sep, 2013 [facility] [place] [facility] [address] [id number] [place] [address] 08 Sep, 2013 [facility] [place] [facility] [address] [id number] [place] [address] 08 Sep, 2013 [facility] [place] [facility] [address] [id number] [place] [address] 08 Sep, 2013 [facility] [place] [facility] [address] [id number] [place] [address] 08 Sep, 2013 [facility] [place] [facility] [address] [id number] [place] [address] 08 Sep, 2013 [facility] [place] [facility] [address] [id number] [place] [address] 08 Sep, 2013 [facility] [place] [facility] [address] [id number] [place] [address] 04 Sep, 2013 [facility] [place] [facility] [address] [id number] [place] [address] 04 Sep, 2013 [facility] [place] [facility] [address] [id number] [place] [address] Nov, 2013 [facility] [place] [facility] [address] [id number] [place] [address] Nov, [facility] [place] [facility] [address] [facility] [id number] [place] [address] Nov, [facility] [place] [facility] [address] [id number] [place] [address] Oct, [facility] [place] [facility] [address] [id number] [place] [address] Oct, [facility] [place] [facility] [address] [id number] [place] [address] Oct, [facility] [place] [facility] [address] [id number] [place] [address] Oct, [facility] [place] [facility] [address] [id number] [place] [address] Oct, [facility] [place] [facility] [address] [facility] [id number] [place] [address] Oct, [facility] [place] [facility] [address] [id number] [place] [address] Oct, [facility] [place] [facility] [address] [id number] [place] [address] Oct, [facility] [place] [facility] [address] [id number] [place] [address] Oct, [facility] [place] [facility] [address] [id number] [place] [address] Oct, [facility] [place] [facility] [address] [id number] [place] [address] Oct, [facility] [place] [facility] [address] [facility] [id number] [place] [address] Oct, [facility] [place] [facility] [address] [id number] [place] [address] Oct, [facility] [place] [facility] [address] [id number] [place] [address] Oct, [facility] [place] [facility] [address] [facility] [id number] [place] [address] Sep, [facility] [place] [facility] [address] [facility] [id number] [place] [address] Sep, [facility] [place] [facility] [address] [id number] [place] [address] Sep, [facility] [place] [facility] [address] [facility] [id number] [place] [address] Sep, 2013 [facility] [place] [facility] [address] [facility] [id number] [place] [address] Sep, [facility] [place] [facility] [address] [id number] [place] [address] Sep, [facility] [place] [facility] [address] [id number] [place] [address] Sep, [facility] [place] [facility] [address] [id number] [place] [address] Sep, [facility] [place] [facility] [address] [id number] [place] [address] Aug, [facility] [place] [facility] [address] [id number] [place] [address] Aug, [facility] [place] [facility] [address] [id number] [place] [address] Aug, [facility] [place] [facility] [address] [id number] [place] [address] Aug, [facility] [place] [facility] [address] [id number] [place] [address] Aug, [facility] [place] [facility] [address] [id number] [place] [address] Aug, [facility] [place] [facility] [address] [id number] [place] [address] Aug, [facility] [place] [facility] [address] [id number] [place] [address] Aug, [facility] [place] [facility] [address] [id number] [place] [address] July, [facility] [place] [facility] [address] [id number] [place] [address] July, [facility] [place] [facility] [address] [id number] [place] [address] July, [facility] [place] [facility] [address] [id number] [place] [address] July, [facility] [place] [facility] [address] [id number] [place] [address] July, [facility] [place] [facility] [address] [id number] [place] [address] July, [facility] [place] [facility] [address] [id number] [place] [address] July, [facility] [place] [facility] [address] [id number] [place] [address] July, [facility] [place] [facility] [address] [id number] [place] [address] Jun, [facility] [place] [facility] [address] [id number] [place] [address] Jun, [facility] [place] [facility] [address] [id number] [place] [address] Jun, [facility] [place] [facility] [address] [id number] [place] [address] Jun, [facility] [place] [facility] [address] [facility] [id number] [place] [address] Jun, [facility] [place] [facility] [address] [facility] [id number] [place] [address] Jun, [facility] [place] [facility] [address] [id number] [place] [address] Jun, [facility] [place] [facility] [address] [id number] [place] [address] Jun, [facility] [place] [facility] [address] [id number] [place] [address] Jun, [facility] [place] [facility] [address] [facility] [id number] [place] [address] Jun, [facility] [place] [facility] [address] [facility] [id number] [place] [address] Jun, [facility] [place] [facility] [address] [facility] [id number] [place] [address] Jun, [facility] [place] [facility] [address] [facility] [id number] [place] [place] [address] May, [facility] [place] [facility] [address] [facility] [id number] [place] [address] May, [facility] [place] [facility] [address] [id number] [place] [address] May, [facility] [place] [facility] [address] [id number] [place] [address] May, [facility] [place] [facility] [address] [id number] [place] [address] May, [facility] [place] [facility] [address] [facility] [id number] [place] [address] May, [facility] [place] [facility] [address] [id number] [place] [address] May, [facility] [place] [facility] [address] [id number] [place] [address] May, [facility] [place] [facility] [address] [id number] [place] [address] May, [facility] [place] [facility] [address] [facility] [id number] [place] [address] May, [facility] [place] [facility] [address] [id number] [place] [address] May, [facility] [place] [facility] [address] [facility] [id number] [place] [address] May, [facility] [place] [facility] [address] [facility] [id number] [place] [address] May, [facility] [place] [facility] [address] [facility] [id number] [place] [address] May, [facility] [place] [facility] [address] [facility] [id number] [place] [address] Apr, [facility] [place] [facility] [address] [id number] [place] [address] Apr, [facility] [place] [facility] [address] [id number] [place] [address] Apr, [facility] [place] [facility] [address] [id number] [place] [address] Apr, [facility] [place] [facility] [address] [id number] [place] [address] Apr, [facility] [place] [facility] [address] [id number] [place] [address] Apr, [facility] [place] [facility] [address] [id number] [place] [address] Mar, [facility] [place] [facility] [address] [id number] [place] [address] Mar, [facility] [place] [facility] [address] [id number] [place] [address] Mar, [facility] [place] [facility] [address] [id number] [place] [address] Mar, [facility] [place] [facility] [address] [id number] [place] [address] Mar, [facility] [address] [id number] [place] [address] Mar, [facility] [address] [id number] [place] [address] Mar, [facility] [address] [id number] [place] [address] Mar, [facility] [address] [id number] [place] [address] Mar, [facility] [address] [id number] [place] [address] Mar, [facility] [address] [id number] [place] [address] Mar, [facility] [address] [id number] [place] [address] Mar, [facility] [address] [id number] [place] [address] Mar, [facility] [address] [id number] [place] [address] Mar, [facility] [address] [id number] [place] [address] Feb, [facility] [address] [id number] [place] [address] Feb, [facility] [address] [id number] [place] [address] Feb, [facility] [address] [id number] [place] [address] Feb, [facility] [address] [id number] [place] [address] Feb, [facility] [address] [id number] [place] [address] Feb, [facility] [address] [id number] [place] [address] Feb, [facility] [address] [id number] [place] [address] Feb, [facility] [address] [id number] [place] [address] Feb, [facility] [address] [id number] [place] [address] Feb, [facility] [address] [id number] [place] [address] Feb, [facility] [address] [id number] [place] [address] Feb, [facility] [address] [id number] [place] [address] 05 Feb, 2012 [facility] [address] [facility] [id number] [place] [address] 05 Feb, 2012 [facility] [address] [id number] [place] [address] 05 Feb, 2012 [facility] [address] [id number] [place] [address] 05 Feb, 2012 [facility] [address] [id number] [place] [address] 24 Dec, 2012 [facility] [address] [id number] [place] [address] 24 Dec, 2012 [facility] [address] [id number] [place] [address] 16 Dec, 2012 [facility] [address] [id number] [place] [address] 16 Dec, 2012 [facility] [address] [id number] [place] [address] 16 Dec, 2012 [facility] [address] [id number] [place] [address] 16 Dec, 2012 [facility] [address] [id number] [place] [address] 14 Dec, 2012 [facility] [address] [id number] [place] [address] 14 Dec, 2012 [facility] [address] [id number] [place] [address] 10 Dec, 2012 [facility] [address] [id number] [place] [address] 10 Dec, 2012 [facility] [address] [id number] [place] [address] 10 Dec, 2012 [facility] [address] [id number] [place] [address] 10 Dec, 2012 [facility] [address] [id number] [place] [address] 03 Dec, 2012 [facility] [address] [id number] [place] [address] 25 Nov, 2012 [facility] [address] [id number] [place] [address] 20 Nov, 2012 [facility] [address] [facility] [id number] [place] [address] 18 Nov, 2012 [facility] [address] [id number] [place] [address] 16 Nov, 2012 [facility] [address] [facility] [id number] [place] [address] 12 Nov, 2012 [facility] [address] [id number] [place] [address] 11 Nov, 2012 [facility] [address] [id number] [place] [address] 05 Nov, 2012 [facility] [address] [id number] [place] [address] 15 Oct, 2012 [facility] [address] [id number] [place] [address] Oct, [facility] [address] [id number] [place] [address] 24 Sep, 2012 [facility] [address] [id number] [place] [address] Sep, [facility] [address] [id number] [place] [address] Sep, [facility] [address] [id number] [place] [address] 17 Sep, 2012 [facility] [address] [id number] [place] [address] 15 Sep, 2012 [facility] [address] [id number] [place] [address] Sep, [facility] [address] [id number] [place] [address] 08 Sep, 2012 [facility] [address] [id number] [place] [address] Aug, [facility] [address] [id number] [place] [address] 18 Aug, 2012 [facility] [address] [id number] [place] [address] 16 Aug, 2012 [facility] [address] [id number] [place] [address] 13 Aug, 2012 [facility] [address] [id number] [place] [address] Aug, [facility] [address] [id number] [place] [address] Aug, [facility] [address] [id number] [place] [address] 04 Aug, 2012 [facility] [address] [id number] [place] [address] Aug, [facility] [address] [id number] [place] [address] July, [facility] [address] [id number] [place] [address] July, [facility] [address] [id number] [place] [address] July, [facility] [address] [facility] [id number] [place] [id number] July, [facility] [address] [id number] [place] [address] July, [facility] [address] [id number] [place] [address] Jun, [facility] [address] [id number] [place] [address] May, [facility] [address] [id number] [place] [address] 14 May, 2012 [facility] [address] [id number] [place] [address] 04 May, 2012 [facility] [address] [id number] [place] [address] Apr, [facility] [address] [id number] [place] [address] Apr, [facility] [address] [id number] [place] [address] Apr, [facility] [address] [id number] [place] [address] Mar, [facility] [address] [id number] [place] [address] Mar, [facility] [address] [id number] [place] [address] Mar, [facility] [address] [id number] [place] [address] Mar, [facility] [address] [id number] [place] [address] Mar, [facility] [address] [id number] [place] [address] Mar, [facility] [address] [id number] [place] [address] Mar, [facility] [id number] [place] [address] Feb, [facility] [address] [id number] [place] [address] Feb, [facility] [address] [id number] [place] [address] Feb, [facility] [address] [id number] [place] [address] Feb, [facility] [address] [id number] [place] [address] Feb, [facility] [address] [id number] [place] [address] Feb, [facility] [address] [id number] [place] [address] Feb, [facility] [address] [id number] [place] [address] Feb, [facility] [address] [id number] [place] [address] Jan, [facility] [address] [id number] [place] [address] Jan, [facility] [address] [id number] [place] [address] Jan, [facility] [address] [id number] [place] [address] Jan, [facility] [address] [id number] [place] [address] Jan, [facility] [address] [id number] [place] [address] Jan, [facility] [address] [id number] [place] [address] Jan, [facility] [address] [id number] [place] [address] Jan, [facility] [address] [id number] [place] [address] Jan, [facility] [address] [id number] [place] [address] Jan, [facility] [address] [id number] [place] [address] Jan, [facility] [address] [id number] [place] [address] Jan, [facility] [address] [id number] [place] [address] Jan, [facility] [address] [id number] [place] [address] Jan, [facility] [address] [id number] [place] [address] Jan, [facility] [address] [id number] [place] [address] Jan, [facility] [address] [id number] [place] [address] Dec, [facility] [address] [id number] [place] [address] Dec, [facility] [address] [id number] [place] [address] Dec, [facility] [address] [id number] [place] [address] Dec, [facility] [address] [id number] [place] [address] Dec, [facility] [address] [id number] [place] [address] Dec, [facility] [address] [id number] [place] [address] Dec, [facility] [address] [id number] [place] [address] Dec, [facility] [address] [id number] [place] [address] 08 Dec, 2011 [facility] [address] [id number] [place] [address] 05 Dec, 2011 [facility] [address] [id number] [place] [address] 18 Nov, 2011 [facility] [address] [id number] [place] [address] 13 Nov, 2011 [facility] [address] [id number] [place] [address] 24 Oct, 2011 [facility] [address] [id number] [place] [address] Oct, [facility] [address] [id number] [place] [address] Oct, [facility] [address] [id number] [place] [address] Oct, [facility] [address] [id number] [place] [address] Oct, [facility] [address] [id number] [place] [address] Oct, [facility] [address] [id number] [place] [address] Oct, [facility] [address] [id number] [facility] [place] [address] Sep, [facility] [address] [id number] [facility] [address] Aug, [facility] [address] [id number] [place] [address] Aug, [facility] [address] [id number] [place] [address] Aug, [facility] [address] [id number] [place] [address] Aug, [facility] [address] [id number] [place] [address] Aug, [facility] [address] [id number] [place] [address] July, [facility] [address] [id number] [place] [address] July, [facility] [address] [id number] [place] [address] July, [facility] [address] [id number] [place] [address] Jun, [facility] [address] [id number] [place] [address] Jun, [facility] [address] [id number] [place] [address] Jun, [facility] [address] [id number] [place] [address] Jun, [facility] [address] [id number] [place] [address] May, [facility] [address] [id number] [facility] [address] 30 May, 2011 [facility] [address] [facility] [id number] [place] [address] 29 May, 2011 [facility] [address] [id number] [place] [address] 28 May, 2011 [facility] [address] [id number] [place] [address] 23 May, 2011 [facility] [address] [id number] [place] [address] 22 May, 2011 [facility] [address] [id number] [place] [address] 21 May, 2011 [facility] [address] [id number] [place] [address] 19 May, 2011 [facility] [address] [id number] [place] [address] 08 May, 2011 [facility] [address] [id number] [place] [address] 05 May, 2011 [facility] [address] [id number] [place] [address] 02 May, 2011 [facility] [address] [id number] [place] [address] May, [facility] [address] [id number] [place] [address] 31 Mar, 2011 [facility] [address] [id number] [place] [address] Mar, [facility] [address] [id number] [place] [address] 28 Feb, 2011 [facility] [address] [id number] [place] [address] Feb, [facility] [address] [id number] [place] [address] Feb, [facility] [address] [id number] [place] [address] 15 Feb, 2011 [facility] [address] [id number] [place] [address] 13 Feb, 2011 [facility] [address] [id number] [place] [address] 13 Feb, 2011 [facility] [address] [id number] [place] [address] Feb, [facility] [address] [id number] [place] [address] Jan, [facility] [address] [id number] [place] [address] Jan, [facility] [address] [id number] [place] [address] Jan, [facility] [address] [id number] [place] [address] Jan, [facility] [id number] [place] [address] Jan, [facility] [address] [id number] [place] [address] Jan, [facility] [address] [id number] [place] [address] Dec, [facility] [address] [id number] [place] [address] Dec, [facility] [address] [id number] [place] [address] Dec, [facility] [address] [id number] [place] [address] July, [facility] [address] [id number] [place] [address] July, [facility] [address] [facility] [id number] [place] [address] 08 Feb, 2010 [facility] [address] [id number] [place] [address] Jan, [facility] [address] [id number] [place] [address] Dec, [facility] [address] [id number] [place] [address] Dec, [facility] [address] [id number] [place] [address] Sep, [facility] [address] [id number] [place] [address] Aug, [facility] [address] [id number] [place] [address] Jun, [facility] [address] [id number] [place] [address] Jun, [facility] [address] [id number] [place] [address] Jan, [facility] [address] [id number] [place] [address] Jan, [facility] [address] [id number] [place] [address] Jan, [facility] [address] [id number] [place] [address] Jan, [facility] [address] [id number] [place] [address] Dec, [facility] [address] [id number] [place] [address] Dec, [facility] [address] [id number] [place] [address] Dec, [facility] [address] [id number] [place] [address] Nov, [facility] [address] [id number] [place] [address] July, [facility] [address] [id number] [place] [address] May, [facility] [address] [id number] [place] [address] Apr, [facility] [address] [facility] [id number] [place] [address] Feb, [facility] [address] [facility] [id number] [place] [address] Dec, IMMUNIZATIONS No Known Immunizations SOCIAL HISTORY [...]
--- OUTSIDE RECORDS SUMMARY | 2019-06-22 20:21 | XMS REPORT | Continuity of Care Document ---
Author Organization Unknown Address Unknown Phone Unavailable Allergies Active Description Code Type Severity Reaction Onset Reported/Identified Relationship to Patient Clinical Status Yes Zithromax Drug Allergy 05/08/2008 Yes Zithromax Drug Allergy N/A N/A 05/08/2008 Yes azithromycin [id number] Drug Allergy Unknown N/A 10/28/2013 Yes prednisone [id number] Drug Allerg y Unknown RAISES BLOOD ESPINOZA 10/28/2013 Yes prednisone Drug Allergy N/A N/A 05/03/2014 Medications There is no data. Problems Date Dx Coded Attending Type Code Diagnosis Diagnosed By 02/25/1414 BHARATH GAYLE, ZEHRA Matthews Ot M54. 5 LOW BACK PAIN 10/03/2007 250.02 CELESTINO BETES II UNCONTROLLED 10/03/2007 250.02 CELESTINO BETES II UNCONTROLLED 10/03/2007 250.02 CELESTINO BETES II UNCONTROLLED 10/03/2007 BEVERLY TAO APRN 250.02 DIABETES II UNCONTROLLED 10/03/2007 ARIAN US PSYD 250.02 DIABETES II UNCONTROLLED 10/03/2007 ARIAN US PSYD 250.02 DIABETES II UNCONTROLLED 10/03/2007 250.02 CELESTINO BETES II UNCONTROLLED 10/03/2007 ARIAN US PSYD 250.02 DIABETES II UNCONTROLLED 10/03/2007 250.02 CELESTINO BETES II UNCONTROLLED 10/03/2007 250.02 CELESTINO BETES II UNCONTROLLED 10/03/2007 250.02 CELESTINO BETES II UNCONTROLLED 10/03/2007 250.02 CELESTINO BETES II UNCONTROLLED 10/03/2007 250.02 CELESTINO BETES II UNCONTROLLED 10/03/2007 250.02 CELESTINO BETES II UNCONTROLLED 10/03/2007 250.02 CELESTINO BETES II UNCONTROLLED 10/03/2007 250.02 CELESTINO BETES II UNCONTROLLED 10/03/2007 250.02 CELESTINO BETES II UNCONTROLLED 10/03/2007 250.02 CELESTINO BETES II UNCONTROLLED 10/03/2007 250.02 CELESTINO BETES II UNCONTROLLED 10/03/2007 250.02 CELESTINO BETES II UNCONTROLLED 10/03/2007 250.02 CELESTINO BETES II UNCONTROLLED 10/03/2007 250.02 CELESTINO BETES II UNCONTROLLED 10/03/2007 ARIAN US PSYD 250.02 DIABETES II UNCONTROLLED 10/03/2007 ARIAN US PSYD L 250.02 DIABETES II UNCONTROLLED 10/03/2007 LUCIANO WILLARD DO 250.02 DIABETES II UNCONTROLLED 10/03/2007 JERMAINE FERRER APRN 250.02 DIABETES II UNCONTROLLED 10/03/2007 ARIAN US PSYD L 250.02 DIABETES II UNCONTROLLED 10/03/2007 CATALINA MCKNIGHT APRN 250.02 DIABETES II UNCONTROLLED 10/03/2007 BEVERLY TAO APRN 250.02 DIABETES II UNCONTROLLED 10/03/2007 JERMAINE FERRER APRN 250.02 DIABETES II UNCONTROLLED 10/03/2007 ARIAN US PSYD 250.02 DIABETES II UNCONTROLLED 10/03/2007 HARLEEN LOU APRN 250.02 DIABETES II UNCONTROLLED 10/03/2007 HARLEEN LOU APRN 250.02 DIABETES II UNCONTROLLED 10/03/2007 ARIAN US PSYD 250.02 DIABETES II UNCONTROLLED 10/03/2007 ARIAN US PSYD 250.02 DIABETES II UNCONTROLLED 10/03/2007 LOUISE COBOS MD 250.0 2 DIABETES II UNCONTROLLED 10/03/2007 JERMAINE FERRER APRN [...] DIABETES II UNCONTROLLED 10/03/2007 LOUISE COBOS MD 250.0 2 DIABETES II UNCONTROLLED 10/03/2007 ARIAN US PSYD L 250.02 DIABETES II UNCONTROLLED 10/03/2007 CLAUDE TAO APRNNDA S 250.02 DIABETES II UNCONTROLLED 10/03/2007 ARIAN US PSYD L 250.02 DIABETES II UNCONTROLLED 10/03/2007 ARIAN US PSYD ANN L 250.02 DIABETES II UNCONTROLLED 10/03/2007 CLAUDE TAO APRNNDA S 250.02 DIABETES II UNCONTROLLED 10/03/2007 ARIAN US PSYD L 250.02 DIABETES II UNCONTROLLED 10/03/2007 JAVAD DAMON APRN 250 .02 DIABETES II UNCONTROLLED 10/03/2007 LATONYA TAO APRNA S 250.02 DIABETES II UNCONTROLLED 10/03/2007 JAVAD DAMON APRN 250 .02 DIABETES II UNCONTROLLED 10/03/2007 ARIAN US PSYD L 250.02 DIABETES II UNCONTROLLED 10/03/2007 ARIAN US PSYD L 250.02 DIABETES II UNCONTROLLED 10/03/2007 ARIAN US PSYD L 250.02 DIABETES II UNCONTROLLED 10/03/2007 LATONYA TAO APRNA S 250.02 DIABETES II UNCONTROLLED 10/03/2007 JASMIN MCKNIGHT APRNIDI A 250.02 DIABETES II UNCONTROLLED 10/03/2007 JAVAD DAMON APRN 250 .02 DIABETES II UNCONTROLLED 10/03/2007 ARIAN US PSYD [...] US PSYD L 250.02 DIABETES II UNCONTROLLED 12/22/2007 250.00 Celestino betes Ii Controlled 12/22/2007 250.00 Celestino betes Ii Controlled 12/22/2007 250.00 Celestino betes Ii Controlled 12/22/2007 BEVERLY TAO APRN 250.00 Diabetes Ii Controlled 12/22/2007 ARIAN US PSYD 250.00 Diabetes Ii Controlled 12/22/2007 ARIAN US PSYD 250.00 Diabetes Ii Controlled 12/22/2007 250.00 Celestino betes Ii Controlled 12/22/2007 ARIAN US PSYD 250.00 Diabetes Ii Controlled 12/22/2007 250.00 Celestino betes Ii Controlled 12/22/2007 250.00 Celestino betes Ii Controlled 12/22/2007 250.00 Celestino betes Ii Controlled 12/22/2007 250.00 Celestino betes Ii Controlled 12/22/2007 250.00 Celestino betes Ii Controlled 12/22/2007 250.00 Celestino betes Ii Controlled 12/22/2007 250.00 Celestino betes Ii Controlled 12/22/2007 250.00 Celestino betes Ii Controlled 12/22/2007 250.00 Celestino betes Ii Controlled 12/22/2007 250.00 Celestino betes Ii Controlled 12/22/2007 250.00 Celestino betes Ii Controlled 12/22/2007 250.00 Celestino betes Ii Controlled 12/22/2007 250.00 Celestino betes Ii Controlled 12/22/2007 250.00 Celestino betes Ii Controlled 12/22/2007 ARIAN US PSYD 250.00 [...] MELLITUS TYPE 2 12/22/2007 LOUISE COBOS MD 250.0 0 DIABETES MELLITUS TYPE 2 12/22/2007 JERMAINE FERRER APRN 250.00 DIABETES MELLITUS TYPE 2 12/22/2007 ARIAN US PSYD ANN L 250.00 Diabetes Ii Controlled 12/22/2007 ARIAN US PSYD ANN L 250.00 DIABETES MELLITUS TYPE 2 12/22/2007 ARIAN US PSYD ANN L 250.00 DIABETES MELLITUS TYPE 2 12/22/2007 ARIAN US PSYD ANN L 250.00 DIABETES MELLITUS TYPE 2 12/22/2007 CLAUDE TAO APRNNDA S 250.00 DIABETES MELLITUS TYPE 2 12/22/2007 ARIAN US PSYD ANN L 250.00 DIABETES MELLITUS TYPE 2 12/22/2007 LUCIANO WILLARD DO 250.00 DIABETES MELLITUS TYPE 2 12/22/2007 LOUISE COBOS MD 250.0 0 DIABETES MELLITUS TYPE 2 12/22/2007 ARIAN US PSYD ANN L 250.00 DIABETES MELLITUS TYPE 2 12/22/2007 AISLINN OCONNOR BEVERLY S 250.00 DIABETES MELLITUS TYPE 2 12/22/2007 ARIAN US PSYD ANN L 250.00 DIABETES MELLITUS TYPE 2 12/22/2007 ARIAN US PSYD ANN L 250.00 DIABETES MELLITUS TYPE 2 12/22/2007 AISLINN OCONNOR BEVERLY S 250.00 DIABETES MELLITUS TYPE 2 12/22/2007 ARIAN US PSYD ANN L 250.00 DIABETES MELLITUS TYPE 2 12/22/2007 NELSON OCONNOR JAVAD 250 .00 DIABETES MELLITUS TYPE 2 12/22/2007 AISLINN OCONNOR BEVERLY S 250.00 DIABETES MELLITUS TYPE 2 12/22/2007 NELSON OCONNOR JAVAD 250 .00 DIABETES MELLITUS TYPE 2 12/22/2007 ARIAN US PSYD ANN L 250.00 DIABETES MELLITUS TYPE 2 12/22/2007 ARIAN US PSYD ANN L 250.00 DIABETES MELLITUS TYPE 2 12/22/2007 ARIAN US PSYD ANN L 250.00 DIABETES MELLITUS TYPE 2 12/22/2007 CLAUDE TAO APRNNDA S 250.00 DIABETES MELLITUS TYPE 2 12/22/2007 ROXANNA APRN, CATALINA A 250.00 DIABETES MELLITUS TYPE 2 12/22/2007 JAVAD DAMON APRN 250 .00 DIABETES MELLITUS TYPE 2 12/22/2007 ARIAN US PSYD ANN L 250.00 DIABETES MELLITUS TYPE 2 12/22/2007 ARIAN US PSYD ANN L 250.00 DIABETES MELLITUS TYPE 2 12/22/2007 LATONYA TAO APRNA S 250.00 DIABETES MELLITUS TYPE 2 12/22/2007 ARIAN US PSYD ANN L 250.00 DIABETES MELLITUS TYPE 2 12/22/2007 ARIAN US PSYD ANN L 250.00 DIABETES MELLITUS TYPE 2 12/22/2007 ROXANNACARLOS EDUARDO OCONNOR, CATALINA A 250.00 DIABETES MELLITUS TYPE 2 12/22/2007 ARIAN US PSYD ANN L 250.00 DIABETES MELLITUS TYPE 2 12/22/2007 ARIAN US PSYD ANN L 250.00 DIABETES MELLITUS TYPE 2 12/22/2007 ARIAN US PSYD ANN L 250.00 DIABETES MELLITUS TYPE 2 01/24/2008 V72.31 Rou opal Gynecological Examination 01/24/2008 V72.31 Rou opal Gynecological Examination 01/24/2008 V72.31 Rou opal Gynecological Examination 01/24/2008 BEVERLY TAO APRN S V72.31 Routine Gynecological Examination 01/24/2008 ARIAN US PSYD L V72.31 Routine Gynecological Examination 01/24/2008 ARIAN US PSYD ANN L V72.31 Routine Gynecological Examination 01/24/2008 V72.31 Rou opal Gynecological Examination 01/24/2008 ARIAN US PSYD ANN L V72.31 Routine Gynecological Examination 01/24/2008 V72.31 Rou opal Gynecological Examination 01/24/2008 V72.31 Rou opal Gynecological Examination 01/24/2008 V72.31 Rou opal Gynecological Examination 01/24/2008 V72.31 Rou opal Gynecological Examination 01/24/2008 V72.31 Rou opal Gynecological Examination 01/24/2008 V72.31 Rou opal Gynecological Examination 01/24/2008 V72.31 Rou opal Gynecological Examination 01/24/2008 V72.31 Rou opal Gynecological Examination 01/24/2008 V72.31 Rou opal Gynecological Examination 01/24/2008 V72.31 Rou opal Gynecological Examination 01/24/2008 V72.31 Rou opal Gynecological Examination 01/24/2008 V72.31 Rou opal Gynecological Examination 01/24/2008 V72.31 Rou opal Gynecological Examination 01/24/2008 V72.31 Rou opal Gynecological Examination 01/24/2008 ARIAN US PSYD V72.31 Routine Gynecological Examination 01/24/2008 ARIAN US PSYD V72.31 Routine Gynecological Examination 01/24/2008 LUCIANO WILLARD DO V72.31 Routine Gynecological Examination 01/24/2008 JERMAINE FERRER APRN V72.31 Routine Gynecological Examination 01/24/2008 ARIAN US PSYD V72.31 Routine Gynecological Examination 01/24/2008 CATALINA MCKNIGHT APRN V72.31 Routine Gynecological Examination 01/24/2008 BEVERLY TAO APRN V72.31 Routine Gynecological Examination 01/24/2008 JERMAINE FERRER APRN V72.31 Routine Gynecological Examination 01/24/2008 ARIAN US PSYD V72.31 Routine Gynecological Examination 01/24/2008 HARLEEN LOU APRN V72.31 Routine Gynecological Examination 01/24/2008 HARLEEN LOU APRN V72.31 Routine Gynecological Examination 01/24/2008 ARIAN US PSYD V72.31 Routine Gynecological Examination 01/24/2008 ARIAN US PSYD V72.31 Routine Gynecological Examination 01/24/2008 LOUISE COBOS MD V72.3 1 Routine Gynecological Examination 01/24/2008 JERMAINE FERRER APRN [...] ANN L V72.31 Routine Gynecological Examination 01/24/2008 LUCIANO WILLARD DO V72.31 Routine Gynecological Examination 01/24/2008 PAPITO GAYLE, LOUISE V72.3 1 Routine Gynecological Examination 01/24/2008 ARIAN US PSYD ANN L V72.31 Routine Gynecological Examination 01/24/2008 BEVERLY TAO APRN S V72.31 Routine Gynecological Examination 01/24/2008 ARIAN US PSYD ANN L V72.31 Routine Gynecological Examination 01/24/2008 ARIAN US PSYD ANN L V72.31 Routine Gynecological Examination 01/24/2008 BEVERLY TAO APRN S V72.31 Routine Gynecological Examination 01/24/2008 ARIAN US PSYD ANN L V72.31 Routine Gynecological Examination 01/24/2008 JAVAD DAMON APRN V72 .31 Routine Gynecological Examination 01/24/2008 BEVERLY TAO APRN S V72.31 Routine Gynecological Examination 01/24/2008 JAVAD DAMON APRN V72 .31 Routine Gynecological Examination 01/24/2008 ARIAN US PSYD ANN L V72.31 Routine Gynecological Examination 01/24/2008 ARIAN US PSYD ANN L V72.31 Routine Gynecological Examination 01/24/2008 ARIAN US PSYD ANN L V72.31 Routine Gynecological Examination 01/24/2008 BEVERLY TAO APRN S V72.31 Routine Gynecological Examination 01/24/2008 CATALINA MCKNIGHT APRN V72.31 Routine Gynecological Examination 01/24/2008 JAVAD DAMON APRN V72 .31 Routine Gynecological Examination 01/24/2008 ARIAN US PSYD ANN L V72.31 Routine Gynecological Examination 01/24/2008 ARIAN US PSYD ANN L V72.31 Routine Gynecological Examination 01/24/2008 BEVERLY TAO APRN S V72.31 Routine Gynecological Examination 01/24/2008 ARIAN US PSYD ANN L V72.31 Routine Gynecological Examination 01/24/2008 ARIAN US PSYD ANN L V72.31 Routine Gynecological Examination 01/24/2008 CATALINA MCKNIGHT APRN V72.31 Routine Gynecological Examination 01/24/2008 ARIAN US PSYD ANN L V72.31 Routine Gynecological Examination 01/24/2008 ARIAN US PSYD ANN L V72.31 Routine Gynecological Examination 01/24/2008 ARIAN US PSYD ANN L V72.31 Routine Gynecological Examination 04/02/2008 682.9 Cell ulitis And Abscess Of Unspecified Sites 04/02/2008 682.9 Cell ulitis And Abscess Of Unspecified Sites 04/02/2008 682.9 Cell ulitis And Abscess Of Unspecified Sites 04/02/2008 BEVERLY TAO APRN S 682.9 Cellulitis And Abscess Of Unspecified Sites 04/02/2008 ARIAN US PSYD ANN L 682.9 Cellulitis And Abscess Of Unspecified Sites 04/02/2008 ARIAN US PSYD ANN L 682.9 Cellulitis And Abscess Of Unspecified Sites 04/02/2008 682.9 Cell ulitis And Abscess Of Unspecified Sites 04/02/2008 ARIAN US PSYD ANN L 682.9 Cellulitis And Abscess Of Unspecified Sites 04/02/2008 682.9 Cell ulitis And Abscess Of Unspecified Sites 04/02/2008 682.9 Cell ulitis And Abscess Of Unspecified Sites 04/02/2008 682.9 Cell ulitis And Abscess Of Unspecified Sites 04/02/2008 682.9 Cell ulitis And Abscess Of Unspecified Sites 04/02/2008 682.9 Cell ulitis And Abscess Of Unspecified Sites 04/02/2008 682.9 Cell ulitis And Abscess Of Unspecified Sites 04/02/2008 682.9 Cell ulitis And Abscess Of Unspecified Sites 04/02/2008 682.9 Cell ulitis And Abscess Of Unspecified Sites 04/02/2008 682.9 Cell ulitis And Abscess Of Unspecified Sites 04/02/2008 682.9 Cell ulitis And Abscess Of Unspecified Sites 04/02/2008 682.9 Cell ulitis And Abscess Of Unspecified Sites 04/02/2008 682.9 Cell ulitis And Abscess Of Unspecified Sites 04/02/2008 682.9 Cell ulitis And Abscess Of Unspecified Sites 04/02/2008 682.9 Cell ulitis And Abscess Of Unspecified Sites 04/02/2008 ARIAN [...] Of Unspecified Sites 04/02/2008 CATALINA MCKNIGHT APRN A 68 2.9 Cellulitis And Abscess Of Unspecified Sites 04/02/2008 BEVERLY TAO APRN 682.9 Cellulitis And Abscess Of Unspecified Sites 04/02/2008 JERMAINE FERRER APRN 682.9 Cellulitis And Abscess Of Unspecified Sites 04/02/2008 ARIAN US PSYD ANN L 682.9 Cellulitis And Abscess Of Unspecified Sites 04/02/2008 HARLEEN LOU APRN 68 2.9 Cellulitis And Abscess Of Unspecified Sites 04/02/2008 HARLEEN LOU APRN 68 2.9 Cellulitis And Abscess Of Unspecified Sites 04/02/2008 ARIAN US PSYD ANN L 682.9 Cellulitis And Abscess Of Unspecified Sites 04/02/2008 ARAIN US PSYD ANN L 682.9 Cellulitis And [...] And Abscess Of Unspecified Sites 04/02/2008 NELSON CHURCH WORKER, JAVAD 682 .9 Cellulitis And Abscess Of Unspecified Sites 04/02/2008 AISLINN OCONNOR BEVERLY S 682.9 Cellulitis And Abscess Of Unspecified Sites 04/02/2008 NELSON CHURCH WORKER, JAVAD 682 .9 Cellulitis And Abscess Of Unspecified Sites 04/02/2008 ARIAN US PSYD ANN L 682.9 Cellulitis And Abscess Of Unspecified Sites 04/02/2008 ARIAN US PSYD ANN L 682.9 Cellulitis And Abscess Of Unspecified Sites 04/02/2008 ARIAN US PSYD ANN L 682.9 Cellulitis And Abscess Of Unspecified Sites 04/02/2008 AISLINNBEVERLY JEFFREY APRN S 682.9 Cellulitis And Abscess Of Unspecified Sites 04/02/2008 ROXANNA APRN, CATALINA A 68 2.9 Cellulitis And Abscess Of Unspecified Sites 04/02/2008 JAVAD DAMON APRN 682 .9 Cellulitis And Abscess Of Unspecified Sites 04/02/2008 ARIAN US PSYD ANN L 682.9 Cellulitis And Abscess Of Unspecified Sites 04/02/2008 ARIAN US PSYD ANN L 682.9 Cellulitis And Abscess Of Unspecified Sites 04/02/2008 LATONYA TAO APRNA S 682.9 Cellulitis And Abscess Of Unspecified Sites 04/02/2008 ARIAN US PSYD ANN L 682.9 Cellulitis And Abscess Of Unspecified Sites 04/02/2008 ARIAN US PSYD ANN L 682.9 Cellulitis And Abscess Of Unspecified Sites 04/02/2008 ROXANNAJASMIN Solitario APRNIDI A 68 2.9 Cellulitis And Abscess Of Unspecified Sites 04/02/2008 ARIAN US PSYD ANN L 682.9 Cellulitis And Abscess Of Unspecified Sites 04/02/2008 ARIAN US PSYD ANN L 682.9 Cellulitis And Abscess Of Unspecified Sites 04/02/2008 ARIAN US PSYD ANN L 682.9 Cellulitis And Abscess Of Unspecified Sites 05/08/2008 465.9 Acut e Upper Respiratory Infections Of Unspecified Site 05/08/2008 465.9 Acut e Upper Respiratory Infections Of Unspecified Site 05/08/2008 465.9 Acut e Upper Respiratory Infections Of Unspecified Site 05/08/2008 LATONYA TAO APRNA S 465.9 Acute Upper Respiratory Infections Of Unspecified Site 05/08/2008 ARIAN US PSYD ANN L 465.9 Acute Upper Respiratory Infections Of Unspecified Site 05/08/2008 ARIAN US PSYD ANN L 465.9 Acute Upper Respiratory Infections Of Unspecified Site 05/08/2008 465.9 Acut e Upper Respiratory Infections Of Unspecified Site 05/08/2008 ARIAN US PSYD ANN L 465.9 Acute Upper Respiratory Infections Of Unspecified Site 05/08/2008 465.9 Acut e Upper Respiratory Infections Of Unspecified Site 05/08/2008 465.9 Acut e Upper Respiratory Infections Of Unspecified Site 05/08/2008 465.9 Acut e Upper Respiratory Infections Of Unspecified Site 05/08/2008 465.9 Acut e Upper Respiratory Infections Of Unspecified Site 05/08/2008 465.9 Acut e Upper Respiratory Infections Of Unspecified Site 05/08/2008 465.9 Acut e Upper Respiratory Infections Of Unspecified Site 05/08/2008 465.9 Acut e Upper Respiratory Infections Of Unspecified Site 05/08/2008 465.9 Acut e Upper Respiratory Infections Of Unspecified Site 05/08/2008 465.9 Acut e Upper Respiratory Infections Of Unspecified Site 05/08/2008 465.9 Acut e Upper Respiratory Infections Of Unspecified Site 05/08/2008 465.9 Acut e Upper Respiratory Infections Of Unspecified Site 05/08/2008 465.9 Acut e Upper Respiratory Infections Of Unspecified Site 05/08/2008 465.9 Acut e Upper Respiratory Infections Of Unspecified Site 05/08/2008 465.9 Acut e Upper Respiratory Infections Of Unspecified Site 05/08/2008 ARIAN US PSYD ANN L 465.9 Acute Upper Respiratory Infections Of Unspecified Site 05/08/2008 AIRAN US PSYD ANN L 465.9 Acute Upper Respiratory Infections Of Unspecified Site 05/08/2008 LUCIANO WILLARD DO 465.9 Acute Upper Respiratory Infections Of Unspecified Site 05/08/2008 JERMAINE FERRER APRN 465.9 Acute Upper Respiratory Infections Of Unspecified Site 05/08/2008 ARIAN US PSYD ANN L 465.9 Acute Upper Respiratory Infections Of Unspecified Site 05/08/2008 CATALINA MCKNIGHT APRN A 46 5.9 Acute Upper Respiratory Infections Of Unspecified Site 05/08/2008 BEVERLY TAO APRN 465.9 Acute Upper Respiratory Infections Of Unspecified Site 05/08/2008 JERMAINE FERRER APRN 465.9 Acute Upper Respiratory Infections Of Unspecified Site 05/08/2008 ARIAN US PSYD ANN L 465.9 Acute Upper Respiratory Infections Of Unspecified Site 05/08/2008 HARLEEN LOU APRN 46 5.9 Acute Upper Respiratory Infections Of Unspecified Site 05/08/2008 HARLEEN LOU APRN 46 5.9 Acute Upper Respiratory Infections Of Unspecified Site 05/08/2008 MCCLEESTELLA GARZA, DAISHA L 465.9 Acute Upper Respiratory Infections Of Unspecified Site 05/08/2008 MCCLESUSANY PSYD, DAISHA L 465.9 Acute Upper Respiratory Infections Of Unspecified Site 05/08/2008 LOUISE COBOS MD 465.9 Acute Upper Respiratory Infections Of Unspecified Site 05/08/2008 JERMAINE FERRER APRN 465.9 Acute Upper Respiratory Infections Of Unspecified Site 05/08/2008 MCCLEEARDarrell PSYD, DAISHA L 465.9 Acute Upper Respiratory Infections Of Unspecified Site 05/08/2008 MCCLEEARY PSYD, DAISHA L 465.9 Acute Upper Respiratory Infections Of Unspecified Site 05/08/2008 MCCLEEARY PSYD, DAISHA L 465.9 Acute Upper Respiratory Infections Of Unspecified Site 05/08/2008 MCCLESUSANY PSYD, DAISHA L 465.9 Acute Upper Respiratory Infections Of Unspecified Site 05/08/2008 CLAUDE TAO APRNNDA S 465.9 Acute Upper Respiratory Infections Of Unspecified Site 05/08/2008 MCCLIBBY GRIFFITHSYD, DAISHA L 465.9 Acute Upper Respiratory Infections Of Unspecified Site 05/08/2008 LUCIANO WILLARD DO 465.9 Acute Upper Respiratory Infections Of Unspecified Site 05/08/2008 LOUISE COBOS MD 465.9 Acute Upper Respiratory Infections Of Unspecified Site 05/08/2008 MCCLIBBY GARZA, DAISHA L 465.9 Acute Upper Respiratory Infections Of Unspecified Site 05/08/2008 CLAUDE TAO APRNNDA S 465.9 Acute Upper Respiratory Infections Of Unspecified Site 05/08/2008 ABEBA GRIFFITHSYD, DAISHA L 465.9 Acute Upper Respiratory Infections Of Unspecified Site 05/08/2008 MCCLIBBY PSYD, DAISHA L 465.9 Acute Upper Respiratory Infections Of Unspecified Site 05/08/2008 AISLINN OCONNOR BEVERLY S 465.9 Acute Upper Respiratory Infections Of Unspecified Site 05/08/2008 ABEBA GARZA, DAISHA L 465.9 Acute Upper Respiratory Infections Of Unspecified Site 05/08/2008 JAVAD DAMON APRN 465 .9 Acute Upper Respiratory Infections Of Unspecified Site 05/08/2008 AISLINN CHURCH WORKER, BEVERLY S 465.9 Acute Upper Respiratory Infections Of Unspecified Site 05/08/2008 NELSON CHURCH WORKER, JAVAD 465 .9 Acute Upper Respiratory Infections Of Unspecified Site [...] Respiratory Infections Of Unspecified Site 05/08/2008 ROXANNA CHURCH WORKER, CATALINA A 46 5.9 Acute Upper Respiratory Infections Of Unspecified Site 05/08/2008 NELSON CHURCH WORKER, JAVAD 465 .9 Acute Upper Respiratory Infections Of Unspecified Site [...] Infections Of Unspecified Site 05/08/2008 ROXANNACARLOS EDUARDO OCONNOR, CATALINA A 46 5.9 Acute Upper Respiratory Infections Of Unspecified Site 05/08/2008 ARIAN US PSYD ANN L 465.9 Acute Upper Respiratory Infections Of Unspecified Site 05/08/2008 ARIAN US PSYD ANN L 465.9 Acute Upper Respiratory Infections Of Unspecified Site 05/08/2008 ARIAN US PSYD ANN L 465.9 Acute Upper Respiratory Infections Of Unspecified Site 05/30/2008 136.8 Othe r Specified Infectious And Parasitic Diseases 05/30/2008 136.8 Othe r Specified Infectious And Parasitic Diseases 05/30/2008 136.8 Othe r Specified Infectious And Parasitic Diseases 05/30/2008 BEVERLY TAO APRN S 136.8 Other Specified Infectious And Parasitic Diseases 05/30/2008 ARIAN US PSYD L 136.8 Other Specified Infectious And Parasitic Diseases 05/30/2008 ARIAN US PSYD L 136.8 Other Specified Infectious And Parasitic Diseases 05/30/2008 136.8 Othe r Specified Infectious And Parasitic Diseases 05/30/2008 ARIAN US PSYD L 136.8 Other Specified Infectious And Parasitic Diseases 05/30/2008 136.8 Othe r Specified Infectious And Parasitic Diseases 05/30/2008 136.8 Othe r Specified Infectious And Parasitic Diseases 05/30/2008 136.8 Othe r Specified Infectious And Parasitic Diseases 05/30/2008 136.8 Othe r Specified Infectious And Parasitic Diseases 05/30/2008 136.8 Othe r Specified Infectious And Parasitic Diseases 05/30/2008 136.8 Othe r Specified Infectious And Parasitic Diseases 05/30/2008 136.8 Othe r Specified Infectious And Parasitic Diseases 05/30/2008 136.8 Othe r Specified Infectious And Parasitic Diseases 05/30/2008 136.8 Othe r Specified Infectious And Parasitic Diseases 05/30/2008 136.8 Othe r Specified Infectious And Parasitic Diseases 05/30/2008 136.8 Othe r Specified Infectious And Parasitic Diseases 05/30/2008 136.8 Othe r Specified Infectious And Parasitic Diseases 05/30/2008 136.8 Othe r Specified Infectious And Parasitic Diseases 05/30/2008 136.8 Othe r Specified Infectious And Parasitic Diseases 05/30/2008 ARIAN US PSYD L 136.8 Other Specified Infectious And Parasitic Diseases 05/30/2008 ARIAN US PSYD L 136.8 Other Specified Infectious And Parasitic Diseases 05/30/2008 LUCIANO WILLARD DO K 136.8 Other Specified Infectious And Parasitic Diseases 05/30/2008 JERMAINE FERRER APRN 136.8 Other Specified Infectious And Parasitic Diseases 05/30/2008 ARIAN US PSYD L 136.8 Other Specified Infectious And Parasitic Diseases 05/30/2008 ROXANNACARLOS EDUARDO OCONNOR CATALINA A 13 6.8 Other Specified Infectious And Parasitic Diseases 05/30/2008 BEVERLY TAO APRN 136.8 Other Specified Infectious And Parasitic Diseases 05/30/2008 JERMAINE FERRER APRN 136.8 Other Specified Infectious And Parasitic Diseases 05/30/2008 ARIAN US PSYD ANN L 136.8 Other Specified Infectious And Parasitic Diseases 05/30/2008 HARLEEN LOU APRN T 13 6.8 Other Specified Infectious And Parasitic Diseases 05/30/2008 HARLEEN LOU APRN T 13 6.8 Other Specified Infectious And Parasitic Diseases 05/30/2008 [...] And Parasitic Diseases 05/30/2008 LUCIANO WILLARD DO K 136.8 Other Specified Infectious And Parasitic Diseases 05/30/2008 LOUISE COBOS MD 136.8 Other Specified Infectious And Parasitic Diseases 05/30/2008 ARIAN US PSYD ANN L 136.8 Other Specified Infectious And Parasitic Diseases 05/30/2008 AISLINN OCONNOR, BEVERLY S 136.8 Other Specified Infectious And Parasitic Diseases 05/30/2008 ARIAN US PSYD ANN L 136.8 Other Specified Infectious And Parasitic Diseases 05/30/2008 ARIAN US PSYD ANN L 136.8 Other Specified Infectious And Parasitic Diseases 05/30/2008 AISLINN OCONNOR BEVERLY S 136.8 Other Specified Infectious And Parasitic Diseases 05/30/2008 ARIAN US PSYD ANN L 136.8 Other Specified Infectious And Parasitic Diseases 05/30/2008 NELSON CHURCH WORKER, JAVAD 136 .8 Other Specified Infectious And Parasitic Diseases 05/30/2008 BEVERLY TAO APRN S 136.8 Other Specified Infectious And Parasitic Diseases 05/30/2008 NELSONVANDANA OCONNOR JAVAD 136 .8 Other Specified Infectious And Parasitic Diseases 05/30/2008 AIRAN US PSYD ANN L 136.8 Other Specified Infectious And Parasitic Diseases 05/30/2008 ARIAN US PSYD ANN L 136.8 Other Specified Infectious And Parasitic Diseases 05/30/2008 ARIAN US PSYD ANN L 136.8 Other Specified Infectious And Parasitic Diseases 05/30/2008 BEVERLY TAO APRN S 136.8 Other Specified Infectious And Parasitic Diseases 05/30/2008 ROXANNA CHURCH WORKER, CATALINA A 13 6.8 Other Specified Infectious And Parasitic Diseases 05/30/2008 NELSON OCONNOR JAVAD 136 .8 Other Specified Infectious And Parasitic Diseases 05/30/2008 [...] Specified Infectious And Parasitic Diseases 05/30/2008 ROXANNA ANASTASIA, CATALINA A 13 6.8 Other Specified Infectious And Parasitic Diseases 05/30/2008 [...] ANN L 729.5 Pain In Limb 06/06/2008 SUDHEER MORRIS LUCIANO K 729.5 Pain In Limb 06/06/2008 JERMAINE FERRER APRN 729.5 Pain In Limb 06/06/2008 ARIAN US PSYD ANN L 729.5 Pain In Limb 06/06/2008 CATALINA MCKNIGHT APRN A 72 9.5 Pain In Limb 06/06/2008 BEVERLY TAO APRN S 729.5 Pain In Limb 06/06/2008 JERMAINE FERRER APRN 729.5 Pain In Limb 06/06/2008 ARIAN US PSYD ANN L 729.5 Pain In Limb 06/06/2008 HARLEEN LOU APRN T 72 9.5 Pain In Limb 06/06/2008 HARLEEN LOU APRN 72 9.5 Pain In Limb 06/06/2008 ARIAN US PSYD ANN L 729.5 Pain In Limb 06/06/2008 ARIAN US PSYD ANN L 729.5 Pain In Limb 06/06/2008 LOUISE COBOS MD 729.5 Pain In Limb 06/06/2008 JERMAINE FERRER APRN 729.5 Pain In Limb 06/06/2008 ARIAN US PSYD ANN L 729.5 Pain In Limb 06/06/2008 ABEBA GRIFFITHSYD, DAISHA L 729.5 Pain In Limb 06/06/2008 ARIAN US PSYD ANN L 729.5 Pain In Limb 06/06/2008 ARIAN US PSYD ANN L 729.5 Pain In Limb 06/06/2008 AISLINN OCONNOR BEVERLY S 729.5 Pain In Limb 06/06/2008 ARIAN US PSYD ANN L 729.5 Pain In Limb 06/06/2008 LUCIANO WILLARD DO 729.5 Pain In Limb 06/06/2008 LOUISE COBOS MD 729.5 Pain In Limb 06/06/2008 ARIAN US PSYD ANN L 729.5 Pain In Limb 06/06/2008 LATONYA TAO APRNA S 729.5 Pain In Limb 06/06/2008 ARIAN US PSYD ANN L 729.5 Pain In Limb 06/06/2008 ARIAN US PSYD ANN L 729.5 Pain In Limb 06/06/2008 CLAUDE TAO APRNNDA S 729.5 Pain In Limb 06/06/2008 ARIAN US PSYD ANN L 729.5 Pain In Limb 06/06/2008 NELSON CHURCH WORKER, JAVAD 729 .5 Pain In Limb 06/06/2008 CLAUDE TAO APRNNDA S 729.5 Pain In Limb 06/06/2008 NELSON CHURCH WORKER JAVAD 729 .5 Pain In Limb 06/06/2008 ARIAN US PSYD ANN L 729.5 Pain In Limb 06/06/2008 ARIAN US PSYD ANN L 729.5 Pain In Limb 06/06/2008 ARIAN US PSYD ANN L 729.5 Pain In Limb 06/06/2008 AISLINN OCONNOR BEVERLY S 729.5 Pain In Limb 06/06/2008 CATALINA MCKNIGHT APRN 72 9.5 Pain In Limb 06/06/2008 JAVAD DAMON APRN 729 .5 Pain In Limb 06/06/2008 CLINTONLEEARY GREG, DAISHA L 729.5 Pain In Limb 06/06/2008 MCCSINAEARY GREG, DAISHA L 729.5 Pain In Limb 06/06/2008 BEVERLY TAO APRN S 729.5 Pain In Limb 06/06/2008 ABAY ARIAN GARZA ANN L 729.5 Pain In Limb 06/06/2008 MCCSINAEARY AYEYD, DAISHA L 729.5 Pain In Limb 06/06/2008 CATALINA MCKNIGHT APRN A 72 9.5 Pain In Limb 06/06/2008 MCCLEEARY PSYD, DAISHA L 729.5 Pain In Limb 06/06/2008 CLINTONLEEARY AYEYD, DAISHA L 729.5 Pain In Limb 06/06/2008 MINGOEARY PSYD, DAISHA L 729.5 Pain In Limb 07/02/2008 794.17 Abn ormal Electromyogram (emg) 07/02/2008 794.17 Abn ormal Electromyogram (emg) 07/02/2008 794.17 Abn ormal Electromyogram (emg) 07/02/2008 BEVERLY TAO APRN S 794.17 Abnormal Electromyogram (emg) 07/02/2008 ARIAN US PSYD ANN L 794.17 Abnormal Electromyogram (emg) 07/02/2008 ARIAN US PSYD ANN L 794.17 Abnormal Electromyogram (emg) 07/02/2008 794.17 Abn ormal Electromyogram (emg) 07/02/2008 ARIAN US PSYD ANN L 794.17 Abnormal Electromyogram (emg) 07/02/2008 794.17 Abn ormal Electromyogram (emg) 07/02/2008 794.17 Abn ormal Electromyogram (emg) 07/02/2008 794.17 Abn ormal Electromyogram (emg) 07/02/2008 794.17 Abn ormal Electromyogram (emg) 07/02/2008 794.17 Abn ormal Electromyogram (emg) 07/02/2008 794.17 Abn ormal Electromyogram (emg) 07/02/2008 794.17 Abn ormal Electromyogram (emg) 07/02/2008 794.17 Abn ormal Electromyogram (emg) 07/02/2008 794.17 Abn ormal Electromyogram (emg) 07/02/2008 794.17 Abn ormal Electromyogram (emg) 07/02/2008 794.17 Abn ormal Electromyogram (emg) 07/02/2008 794.17 Abn ormal Electromyogram (emg) 07/02/2008 794.17 Abn ormal Electromyogram (emg) 07/02/2008 794.17 Abn ormal Electromyogram (emg) 07/02/2008 ABEBA GARZA, DAISHA L 794.17 Abnormal Electromyogram (emg) 07/02/2008 ABEBA GARZA, DAISHA L 794.17 Abnormal Electromyogram (emg) 07/02/2008 LUCIANO WILLARD DO 794.17 Abnormal Electromyogram (emg) 07/02/2008 JERMAINE FERRER APRN 794.17 Abnormal Electromyogram (emg) 07/02/2008 ABEBA GARZA DAISHA L 794.17 Abnormal Electromyogram (emg) 07/02/2008 CATALINA MCKNIGHT APRN 794.17 Abnormal Electromyogram (emg) 07/02/2008 BEVERLY TAO APRN 794.17 Abnormal Electromyogram (emg) 07/02/2008 JERMAINE FERRER APRN 794.17 Abnormal Electromyogram (emg) 07/02/2008 ABEBA GARZA DAISHA L 794.17 Abnormal Electromyogram (emg) 07/02/2008 HARLEEN LOU APRN 794.17 Abnormal Electromyogram (emg) 07/02/2008 HARLEEN LOU APRN 794.17 Abnormal Electromyogram (emg) 07/02/2008 ABEBA GARZA DAISHA L 794.17 Abnormal Electromyogram (emg) 07/02/2008 ABEBA GARZA DAISHA L 794.17 Abnormal Electromyogram (emg) 07/02/2008 LOUISE COBOS MD 794.1 7 Abnormal Electromyogram (emg) 07/02/2008 JERMAINE FERRER APRN 794.17 Abnormal Electromyogram (emg) 07/02/2008 ABEBA GARZA DAISHA L 794.17 Abnormal Electromyogram (emg) 07/02/2008 MCCLEEARY PSYD, DAISHA L 794.17 Abnormal Electromyogram (emg) 07/02/2008 MCCLEEARY PSYD, DAISHA L 794.17 Abnormal Electromyogram (emg) 07/02/2008 MCCLEEARY PSYD, DAISHA L 794.17 Abnormal Electromyogram (emg) 07/02/2008 AISLINN ANASTASIA BEVERLY S 794.17 Abnormal Electromyogram (emg) 07/02/2008 MCCLEEARY PSYD, DAISHA L 794.17 Abnormal Electromyogram (emg) 07/02/2008 LUCIANO WILLARD DO 794.17 Abnormal Electromyogram (emg) 07/02/2008 LOUISE COBOS MD 794.1 7 Abnormal Electromyogram (emg) 07/02/2008 MCCLEEARY PSYD, DAISHA L 794.17 Abnormal Electromyogram (emg) 07/02/2008 CLAUDE TAO APRNNDA S 794.17 Abnormal Electromyogram (emg) 07/02/2008 MCCLEEARY PSYD, DAISHA L 794.17 Abnormal Electromyogram (emg) 07/02/2008 MCCLEEARY PSYD, DAISHA L 794.17 Abnormal Electromyogram (emg) 07/02/2008 AISLINN CHURCH WORKER BEVERLY S 794.17 Abnormal Electromyogram (emg) 07/02/2008 MCCLEEARY PSYD, DAISHA L 794.17 Abnormal Electromyogram (emg) 07/02/2008 NELSON CHURCH WORKER, JAVAD 794 .17 Abnormal Electromyogram (emg) 07/02/2008 AISLINN OCONNOR BEVERLY S 794.17 Abnormal Electromyogram (emg) 07/02/2008 NELSON CHURCH WORKER, JAVAD 794 .17 Abnormal Electromyogram (emg) 07/02/2008 MCCLEEARY PSYD, DAISHA L 794.17 Abnormal Electromyogram (emg) 07/02/2008 CLINTONLEEARY PSYD, DAISHA L 794.17 Abnormal Electromyogram (emg) 07/02/2008 MCCLEEARY PSYD, DAISHA L 794.17 Abnormal Electromyogram (emg) 07/02/2008 AISLINN OCONNOR BEVERLY S 794.17 Abnormal Electromyogram (emg) 07/02/2008 CATALINA MCKNIGHT APRN A 794.17 Abnormal Electromyogram (emg) 07/02/2008 JAVAD DAMON APRN 794 .17 Abnormal Electromyogram (emg) 07/02/2008 MINGOEARY GREG, DAISHA L 794.17 Abnormal Electromyogram (emg) 07/02/2008 MCCLEEARY PSYD, DAISHA L 794.17 Abnormal Electromyogram (emg) 07/02/2008 BEVERLY TAO APRN 794.17 Abnormal Electromyogram (emg) 07/02/2008 MCCLEEARY PSYD, DAISHA L 794.17 Abnormal Electromyogram (emg) 07/02/2008 MCCLEEARY PSYD, DAISHA L 794.17 Abnormal Electromyogram (emg) 07/02/2008 ROXANNACATALINA THIBODEAUX APRN A 794.17 Abnormal Electromyogram (emg) 07/02/2008 MCCLEEARY PSBETHANY, DAISHA L 794.17 Abnormal Electromyogram (emg) 07/02/2008 MINGOEARY GREG, DAISHA L 794.17 Abnormal Electromyogram (emg) 07/02/2008 CLINTONLEEARY PSYD, DAISHA L 794.17 Abnormal Electromyogram (emg) 12/25/2008 477.0 Clarence rgic Rhinitis Due To Pollen 12/25/2008 477.0 Clarence rgic Rhinitis Due To Pollen 12/25/2008 477.0 Clarence rgic Rhinitis Due To Pollen 12/25/2008 BEVERLY TAO APRN S 477.0 Allergic Rhinitis Due To Pollen 12/25/2008 ARIAN US PSYD ANN L 477.0 Allergic Rhinitis Due To Pollen 12/25/2008 ARIAN US PSYD ANN L 477.0 Allergic Rhinitis Due To Pollen 12/25/2008 477.0 Clarence rgic Rhinitis Due To Pollen 12/25/2008 ARIAN US PSYD ANN L 477.0 Allergic Rhinitis Due To Pollen 12/25/2008 477.0 Clarence rgic Rhinitis Due To Pollen 12/25/2008 477.0 Clarence rgic Rhinitis Due To Pollen 12/25/2008 477.0 Clarence rgic Rhinitis Due To Pollen 12/25/2008 477.0 Clarence rgic Rhinitis Due To Pollen 12/25/2008 477.0 Clarence rgic Rhinitis Due To Pollen 12/25/2008 477.0 Clarence rgic Rhinitis Due To Pollen 12/25/2008 477.0 Clarence rgic Rhinitis Due To Pollen 12/25/2008 477.0 Clarence rgic Rhinitis Due To Pollen 12/25/2008 477.0 Clarence rgic Rhinitis Due To Pollen 12/25/2008 477.0 Clarence rgic Rhinitis Due To Pollen 12/25/2008 477.0 Clarence rgic Rhinitis Due To Pollen 12/25/2008 477.0 Clarence rgic Rhinitis Due To Pollen 12/25/2008 477.0 Clarence rgic Rhinitis Due To Pollen 12/25/2008 477.0 Clarence rgic Rhinitis Due To Pollen 12/25/2008 ARIAN US [...] Due To Pollen 12/25/2008 CATALINA MCKNIGHT APRN A 47 7.0 Allergic Rhinitis Due To Pollen 12/25/2008 BEVERLY TAO APRN 477.0 Allergic Rhinitis Due To Pollen 12/25/2008 JERMAINE FERRER APRN 477.0 Allergic Rhinitis Due To Pollen 12/25/2008 ARIAN US PSYD ANN L 477.0 Allergic Rhinitis Due To Pollen 12/25/2008 HARLEEN LOU APRN 47 7.0 Allergic Rhinitis Due To Pollen 12/25/2008 HARLEEN LOU APRN 47 7.0 Allergic Rhinitis Due To Pollen 12/25/2008 ARIAN [...] 477.0 Allergic Rhinitis Due To Pollen 12/25/2008 AISLINN CHURCH WORKER, BEVERLY S 477.0 Allergic Rhinitis Due To Pollen 12/25/2008 ABAY PSYD, DAISHA L 477.0 Allergic Rhinitis Due To Pollen 12/25/2008 LUCIANO WILLARD DO 477.0 Allergic Rhinitis Due To Pollen 12/25/2008 LOUISE COBOS MD 477.0 Allergic Rhinitis Due To Pollen 12/25/2008 ABAY GREG, DAISHA L 477.0 Allergic Rhinitis Due To Pollen 12/25/2008 AISLINN CHURCH WORKER, BEVERLY S 477.0 Allergic Rhinitis Due To Pollen 12/25/2008 ABEBA GARZA, DAISHA L 477.0 Allergic Rhinitis Due To Pollen 12/25/2008 ABAY PSYD, DAISHA L 477.0 Allergic Rhinitis Due To Pollen 12/25/2008 AISLINN CHURCH WORKER, BEVERLY S 477.0 Allergic Rhinitis Due To Pollen 12/25/2008 ABEBA GARZA, DAISHA L 477.0 Allergic Rhinitis Due To Pollen 12/25/2008 NELSON CHURCH WORKER, JAVAD 477 .0 Allergic Rhinitis Due To Pollen 12/25/2008 AISLINN CHURCH WORKER, BEVERLY S 477.0 Allergic Rhinitis Due To Pollen 12/25/2008 NELSON CHURCH WORKER, JAVAD 477 .0 Allergic Rhinitis Due To Pollen 12/25/2008 MINGOEARY PSYD, DAISHA L 477.0 Allergic Rhinitis Due To Pollen 12/25/2008 MINGOEARY PSYD, DAISHA L 477.0 Allergic Rhinitis Due To Pollen 12/25/2008 MINGOEARY PSYD, DAISHA L 477.0 Allergic Rhinitis Due To Pollen 12/25/2008 AISLINN CHURCH WORKER, BEVERLY S 477.0 Allergic Rhinitis Due To Pollen 12/25/2008 CATALINA MCKNIGHT APRN A 47 7.0 Allergic Rhinitis Due To Pollen 12/25/2008 JAVAD DAMON APRN 477 .0 Allergic Rhinitis Due To Pollen 12/25/2008 ARIAN [...] Allergic Rhinitis Due To Pollen 12/25/2008 ROXANNA OCONNOR CATALINA A 47 7.0 Allergic Rhinitis Due To Pollen 12/25/2008 ARIAN US PSYD ANN L 477.0 Allergic Rhinitis Due To Pollen 12/25/2008 ARIAN US PSYD ANN L 477.0 Allergic Rhinitis Due To Pollen 12/25/2008 ARIAN US PSYD ANN L 477.0 Allergic Rhinitis Due To Pollen 01/30/2009 784.0 Headache 01/30/2009 784.0 Headache 01/30/2009 784.0 Headache 01/30/2009 BEVERLY TAO APRN S 784.0 Headache 01/30/2009 ARIAN US PSYD ANN L 784.0 Headache 01/30/2009 ARIAN US PSYD ANN L 784.0 Headache 01/30/2009 784.0 Headache 01/30/2009 ARIAN US PSYD ANN L 784.0 Headache 01/30/2009 784.0 Headache 01/30/2009 784.0 Headache 01/30/2009 784.0 Headache 01/30/2009 784.0 Headache 01/30/2009 784.0 Headache 01/30/2009 784.0 Headache 01/30/2009 784.0 Headache 01/30/2009 784.0 Headache 01/30/2009 784.0 Headache 01/30/2009 784.0 Headache 01/30/2009 784.0 Headache 01/30/2009 784.0 Headache 01/30/2009 784.0 Headache 01/30/2009 784.0 Headache 01/30/2009 MCCLEEARY PSYD, DAISHA L 784.0 Headache 01/30/2009 MCCLEEARY PSYD, DAISHA L 784.0 Headache 01/30/2009 WILLARD RUBA MORRISA K 784.0 Headache 01/30/2009 GARTON CHURCH WORKER, JERMAINE D 784.0 Headache 01/30/2009 MCCLEEARY PSYD, DAISHA L 784.0 Headache 01/30/2009 ROXANNA CHURCH WORKER, CATALINA A 78 4.0 Headache 01/30/2009 AISLINN CHURCH WORKER, BEVERLY S 784.0 Headache 01/30/2009 GARTON CHURCH WORKER, JERMAINE D 784.0 Headache 01/30/2009 MCCLEEARY PSYD, DAISHA L 784.0 Headache 01/30/2009 DASHA CHURCH WORKER, HARLEEN T 78 4.0 Headache 01/30/2009 DASHA CHURCH WORKER, HARLEEN T 78 4.0 Headache 01/30/2009 MCCLEEARY PSYD, DAISHA L 784.0 Headache 01/30/2009 MCCLEEARY PSYD, DAISHA L 784.0 Headache 01/30/2009 LOUISE COBOS MD 784.0 Headache 01/30/2009 GARTON CHURCH WORKER, JERMAINE D 784.0 Headache 01/30/2009 MCCLEEARY PSYD, DAISHA L 784.0 Headache 01/30/2009 MCCLEEARY PSYD, DAISHA L 784.0 Headache 01/30/2009 MCCLEEARY PSYD, DAISHA L 784.0 Headache 01/30/2009 MCCLEEARY PSYD, DAISHA L 784.0 Headache 01/30/2009 AISLINN CHURCH WORKER, BEVERLY S 784.0 Headache 01/30/2009 MCCLEEARY PSYD, DAISHA L 784.0 Headache 01/30/2009 WILLARD DO LUCIANO K 784.0 Headache 01/30/2009 LOUISE COBOS MD 784.0 Headache 01/30/2009 MCCLEEARY PSYD, DAISHA L 784.0 Headache 01/30/2009 AISLINN CHURCH WORKER, BEVERLY S 784.0 Headache 01/30/2009 MCCLEEARY PSYD, DAISHA L 784.0 Headache 01/30/2009 MCCLEEARY PSYD, DAISHA L 784.0 Headache 01/30/2009 AISLINN CHURCH WORKER, BEVERLY S 784.0 Headache 01/30/2009 MCCLEEARY PSYD, DAISHA L 784.0 Headache 01/30/2009 NELSON CHURCH WORKER, JAVAD 784 .0 Headache 01/30/2009 AISLINN CHURCH WORKER, BEVERLY S 784.0 Headache 01/30/2009 NELSON CHURCH WORKER, JAVAD 784 .0 Headache 01/30/2009 MCCLEEARY PSYD, DAISHA L 784.0 Headache 01/30/2009 MCCLEEARY PSYD, DAISHA L 784.0 Headache 01/30/2009 MCCLEEARY PSYD, DIASHA L 784.0 Headache 01/30/2009 AISLINN CHURCH WORKER, BEVERLY S 784.0 Headache 01/30/2009 ROXANNA CHURCH WORKER, CATALINA A 78 4.0 Headache 01/30/2009 NELSON CHURCH WORKER, JAVAD 784 .0 Headache 01/30/2009 MCCLEEARY PSYD, DAISHA L 784.0 Headache 01/30/2009 MCCLEEARY PSYD, DAISHA L 784.0 Headache 01/30/2009 AISLINN CHURCH WORKER, BEVERLY S 784.0 Headache 01/30/2009 MCCLEEARY PSYD, DAISHA L 784.0 Headache 01/30/2009 MCCLEEARY PSYD, DAISHA L 784.0 Headache 01/30/2009 ROXANNA CHURCH WORKER, CATALINA A 78 4.0 Headache 01/30/2009 MCCLEEARY PSYD, DAISHA L 784.0 Headache 01/30/2009 MCCLEEARY PSYD, DAISHA L 784.0 Headache 01/30/2009 MCCLEEARY PSYD, DAISHA L 784.0 Headache 07/08/2009 611.71 Claude ast Pain 07/08/2009 719.47 Wagner n In Joint, Ankle And Foot 07/08/2009 611.71 Claude ast Pain 07/08/2009 719.47 Wagner n In Joint, Ankle And Foot 07/08/2009 611.71 Claude ast Pain 07/08/2009 719.47 Wagner n In Joint, Ankle And Foot 07/08/2009 AISLINN CHURCH WORKER, BEVERLY S 611.71 Breast Pain 07/08/2009 BEVERLY TAO APRN S 719.47 Pain In Joint, Ankle And Foot 07/08/2009 ARIAN US PSYD ANN L 611.71 Breast Pain 07/08/2009 ARIAN US PSYD ANN L 719.47 Pain In Joint, Ankle And Foot 07/08/2009 ARIAN US PSYD ANN L 611.71 Breast Pain 07/08/2009 ARIAN US PSYD ANN L 719.47 Pain In Joint, Ankle And Foot 07/08/2009 611.71 Claude ast Pain 07/08/2009 719.47 Wagner n In Joint, Ankle And Foot 07/08/2009 ARIAN US PSYD ANN L 611.71 Breast Pain 07/08/2009 ARIAN US PSYD ANN L 719.47 Pain In Joint, Ankle And Foot 07/08/2009 611.71 Claude ast Pain 07/08/2009 719.47 Wagner n In Joint, Ankle And Foot 07/08/2009 611.71 Claude ast Pain 07/08/2009 719.47 Wagner n In Joint, Ankle And Foot 07/08/2009 611.71 Claude ast Pain 07/08/2009 719.47 Wagner n In Joint, Ankle And Foot 07/08/2009 611.71 Claude ast Pain 07/08/2009 719.47 Wagenr n In Joint, Ankle And Foot 07/08/2009 611.71 Claude ast Pain 07/08/2009 719.47 Wagner n In Joint, Ankle And Foot 07/08/2009 611.71 Claude ast Pain 07/08/2009 719.47 Wagner n In Joint, Ankle And Foot 07/08/2009 611.71 Claude ast Pain 07/08/2009 719.47 Wagner n In Joint, Ankle And Foot 07/08/2009 611.71 Claude ast Pain 07/08/2009 719.47 Wagner n In Joint, Ankle And Foot 07/08/2009 611.71 Claude ast Pain 07/08/2009 719.47 Wagner n In Joint, Ankle And Foot 07/08/2009 611.71 Claude ast Pain 07/08/2009 719.47 Wagner n In Joint, Ankle And Foot 07/08/2009 611.71 Claude ast Pain 07/08/2009 719.47 Wagner n In Joint, Ankle And Foot 07/08/2009 611.71 Claude ast Pain 07/08/2009 719.47 Wagner n In Joint, Ankle And Foot 07/08/2009 611.71 Claude ast Pain 07/08/2009 719.47 Wagner n In Joint, Ankle And Foot 07/08/2009 611.71 Claude ast Pain 07/08/2009 719.47 Wagner n In Joint, Ankle And Foot 07/08/2009 ARIAN US PSYD 611.71 Breast Pain 07/08/2009 ARIAN US PSYD L 719.47 Pain In Joint, Ankle And Foot 07/08/2009 ARIAN US PSYD L 611.71 Breast Pain 07/08/2009 ARIAN US PSYD L 719.47 Pain In Joint, Ankle And Foot 07/08/2009 WILLARD DOLUCIANO K 611.71 Breast Pain 07/08/2009 WILLARD DOLUCIANO K 719.47 Pain In Joint, Ankle And Foot 07/08/2009 JERMAINE FERRER APRN 611.71 Breast Pain 07/08/2009 JERMAINE FERRER APRN 719.47 Pain In Joint, Ankle And Foot 07/08/2009 ARIAN US PSYD 611.71 Breast Pain 07/08/2009 ARIAN US PSYD 719.47 Pain In Joint, Ankle And Foot 07/08/2009 CATALINA MCKNIGHT APRN A 611.71 Breast Pain 07/08/2009 CATALINA MCKNIGHT APRN A 719.47 Pain In Joint, Ankle And Foot 07/08/2009 CLAUDE TAO APRNNDA S 611.71 Breast Pain 07/08/2009 CLAUDE TAO APRNNDA S 719.47 Pain In Joint, Ankle And Foot 07/08/2009 JERMAINE FERRER APRN 611.71 Breast Pain 07/08/2009 JERMAINE FERRER APRN 719.47 Pain In Joint, Ankle And Foot 07/08/2009 ARIAN US PSYD 611.71 Breast Pain 07/08/2009 ARIAN US PSYD ANN L 719.47 Pain In Joint, Ankle And Foot 07/08/2009 HARLEEN LOU APRN T 611.71 Breast Pain 07/08/2009 DASHA OCONNOR HARLEEN T 719.47 Pain In Joint, Ankle And Foot 07/08/2009 DASHA OCONNOR HARLEEN T 611.71 Breast Pain 07/08/2009 DASHA OCONNOR HARLEEN T 719.47 Pain In Joint, Ankle And Foot 07/08/2009 ABEBA GARZA DAISHA L 611.71 Breast Pain 07/08/2009 ABEBA GARZA DAISHA L 719.47 Pain In Joint, Ankle And Foot 07/08/2009 ABEBA GARZA DAISHA L 611.71 Breast Pain 07/08/2009 ABEBA GARZA DAISHA L 719.47 Pain In Joint, Ankle And Foot 07/08/2009 LOUISE COBOS MD 611.7 1 Breast Pain 07/08/2009 LOUISE COBOS MD 719.4 7 Pain In Joint, Ankle And Foot 07/08/2009 [...] Pain In Joint, Ankle And Foot 07/08/2009 ABEBA GARZA DAISHA L 611.71 Breast Pain 07/08/2009 ARIAN US PSYD ANN L 719.47 Pain In Joint, Ankle And Foot 07/08/2009 ABEBA GARZA DAISHA L 611.71 Breast Pain 07/08/2009 ABEBA GARZA DAISHA L 719.47 Pain In Joint, Ankle And Foot 07/08/2009 BEVERLY TAO APRN S 611.71 Breast Pain 07/08/2009 AISLINN CHURCH WORKER, BEVERLY S 719.47 Pain In Joint, Ankle And Foot 07/08/2009 ARIAN US PSYD ANN L 611.71 Breast Pain 07/08/2009 ARIAN US PSYD ANN L 719.47 Pain In Joint, Ankle And Foot 07/08/2009 WILLARD DO, LUCIANO K 611.71 Breast Pain 07/08/2009 WILLARD DO, LUCIANO K 719.47 Pain In Joint, Ankle And Foot 07/08/2009 LOUISE COBOS MD 611.7 1 Breast Pain 07/08/2009 LOUISE COBOS MD 719.4 7 Pain In Joint, Ankle And Foot 07/08/2009 ARIAN US PSYD ANN L 611.71 Breast Pain 07/08/2009 ARIAN US PSYD ANN L 719.47 Pain In Joint, Ankle And Foot 07/08/2009 LATONYA TAO APRNA S 611.71 Breast Pain 07/08/2009 CLAUDE TAO APRNNDA S 719.47 Pain In Joint, Ankle And Foot 07/08/2009 ARIAN US PSYD ANN L 611.71 Breast Pain 07/08/2009 ARIAN US PSYD ANN L 719.47 Pain In Joint, Ankle And Foot 07/08/2009 ARIAN US PSYD ANN L 611.71 Breast Pain 07/08/2009 ARIAN US PSYD ANN L 719.47 Pain In Joint, Ankle And Foot 07/08/2009 CLAUDE TAO APRNNDA S 611.71 Breast Pain 07/08/2009 LATONYA TAO APRNA S 719.47 Pain In Joint, Ankle And Foot 07/08/2009 ARIAN US PSYD ANN L 611.71 Breast Pain 07/08/2009 ARIAN US PSYD ANN L 719.47 Pain In Joint, Ankle And Foot 07/08/2009 NELSON CHURCH WORKER, JAVAD 611 .71 Breast Pain 07/08/2009 NELSON CHURCH WORKER, JAVAD 719 .47 Pain In Joint, Ankle And Foot 07/08/2009 AISLINN OCONNOR BEVERLY S 611.71 Breast Pain 07/08/2009 AISLINN CHURCH WORKER, BEVERLY S 719.47 Pain In Joint, Ankle And Foot 07/08/2009 NELSON CHURCH WORKER, JAVAD 611 .71 Breast Pain 07/08/2009 NELSON CHURCH WORKER, JAVAD 719 .47 Pain In Joint, Ankle And Foot 07/08/2009 ARIAN US PSYD ANN L 611.71 Breast Pain 07/08/2009 MCCLIBBY GARZA, DAISHA L 719.47 Pain In Joint, Ankle And Foot 07/08/2009 ARIAN US PSYD ANN L 611.71 Breast Pain 07/08/2009 MCCLIBBY GARZA, DAISHA L 719.47 Pain In Joint, Ankle And Foot 07/08/2009 MCCARIAN SOUZA PSYD ANN L 611.71 Breast Pain 07/08/2009 MCCARIAN SOUZA PSYD ANN L 719.47 Pain In Joint, Ankle And Foot 07/08/2009 AISLINN OCONNOR BEVERLY S 611.71 Breast Pain 07/08/2009 AISLINN OCONNOR BEVERLY S 719.47 Pain In Joint, Ankle And Foot 07/08/2009 ROXANNA CHURCH WORKER, CATALINA A 611.71 Breast Pain 07/08/2009 ROXANNA CHURCH WORKER, CATALINA A 719.47 Pain In Joint, Ankle And Foot 07/08/2009 NELSON CHURCH WORKER, JAVAD 611 .71 Breast Pain 07/08/2009 NELSON CHURCH WORKER, JAVAD 719 .47 Pain In Joint, Ankle And Foot 07/08/2009 ARIAN US PSYD ANN L 611.71 Breast Pain 07/08/2009 ARIAN US PSYD ANN L 719.47 Pain In Joint, Ankle And Foot 07/08/2009 ARIAN US PSYD ANN L 611.71 Breast Pain 07/08/2009 MCCARIAN SOUZA PSYD ANN L 719.47 Pain In Joint, Ankle And Foot 07/08/2009 AISLINNCHICHI OCONNOR BEVERLY S 611.71 Breast Pain 07/08/2009 AISLINN CHURCH WORKER BEVERLY S 719.47 Pain In Joint, Ankle And Foot 07/08/2009 ARIAN US PSYD ANN L 611.71 Breast Pain 07/08/2009 ARIAN US PSYD ANN L 719.47 Pain In Joint, Ankle And Foot 07/08/2009 ARIAN US PSYD ANN L 611.71 Breast Pain 07/08/2009 ARIAN US PSYD ANN L 719.47 Pain In Joint, Ankle And Foot 07/08/2009 ROXANNA RUIZN, CATALINA A 611.71 Breast Pain 07/08/2009 ROXANNA CHURCH WORKER, CATALINA A 719.47 Pain In Joint, Ankle [...] In Joint, Ankle And Foot 07/16/2009 686.9 Unsp ecified Local Infection Of Skin And Subcutaneous Tissue 07/16/2009 686.9 Unsp ecified Local Infection Of Skin And Subcutaneous Tissue 07/16/2009 686.9 Unsp ecified Local Infection Of Skin And Subcutaneous Tissue 07/16/2009 BEVERLY TAO APRN 686.9 Unspecified Local Infection Of Skin And Subcutaneous T issue 07/16/2009 ARIAN US PSYD L 686.9 Unspecified Local Infection Of Skin And Subcutaneous T issue 07/16/2009 ARIAN US PSYD ANN L 686.9 Unspecified Local Infection Of Skin And Subcutaneous T issue 07/16/2009 686.9 Unsp ecified Local Infection Of Skin And Subcutaneous Tissue 07/16/2009 ARIAN US PSYD L 686.9 Unspecified Local Infection Of Skin And Subcutaneous T issue 07/16/2009 686.9 Unsp ecified Local Infection Of Skin And Subcutaneous Tissue 07/16/2009 686.9 Unsp ecified Local Infection Of Skin And Subcutaneous Tissue 07/16/2009 686.9 Unsp ecified Local Infection Of Skin And Subcutaneous Tissue 07/16/2009 686.9 Unsp ecified Local Infection Of Skin And Subcutaneous Tissue 07/16/2009 686.9 Unsp ecified Local Infection Of Skin And Subcutaneous Tissue 07/16/2009 686.9 Unsp ecified Local Infection Of Skin And Subcutaneous Tissue 07/16/2009 686.9 Unsp ecified Local Infection Of Skin And Subcutaneous Tissue 07/16/2009 686.9 Unsp ecified Local Infection Of Skin And Subcutaneous Tissue 07/16/2009 686.9 Unsp ecified Local Infection Of Skin And Subcutaneous Tissue 07/16/2009 686.9 Unsp ecified Local Infection Of Skin And Subcutaneous Tissue 07/16/2009 686.9 Unsp ecified Local Infection Of Skin And Subcutaneous Tissue 07/16/2009 686.9 Unsp ecified Local Infection Of Skin And Subcutaneous Tissue 07/16/2009 686.9 Unsp ecified Local Infection Of Skin And Subcutaneous Tissue 07/16/2009 686.9 Unsp ecified Local Infection Of Skin And Subcutaneous Tissue 07/16/2009 ARIAN US PSYD L 686.9 Unspecified Local Infection Of Skin And Subcutaneous T issue 07/16/2009 ARIAN US PSYD L 686.9 Unspecified Local Infection Of Skin And Subcutaneous T issue 07/16/2009 LUCIANO WILLARD DO 686.9 Unspecified Local Infection Of Skin And Subcutaneous Tissue 07/16/2009 JERMAINE FERRER APRN 686.9 Unspecified Local Infection Of Skin And Subcutaneous T issue 07/16/2009 ARIAN US PSYD L 686.9 Unspecified Local Infection Of Skin And Subcutaneous T issue 07/16/2009 CATALINA MCKNIGHT APRN 68 6.9 Unspecified Local Infection Of Skin And Subcutaneous Tissue 07/16/2009 BEVERLY TAO APRN 686.9 Unspecified Local Infection Of Skin And Subcutaneous T issue 07/16/2009 JERMAINE FERRER APRN 686.9 Unspecified Local Infection Of Skin And Subcutaneous T issue 07/16/2009 ARIAN US PSYD L 686.9 Unspecified Local Infection Of Skin And Subcutaneous T issue 07/16/2009 HARLEEN LOU APRN 68 6.9 Unspecified Local Infection Of Skin And Subcutaneous Tissue 07/16/2009 HARLEEN LOU APRN 68 6.9 Unspecified Local Infection Of Skin And Subcutaneous Tissue 07/16/2009 ARIAN US PSYD L 686.9 Unspecified Local Infection Of Skin And Subcutaneous T issue 07/16/2009 ARIAN US PSYD L 686.9 Unspecified Local Infection Of Skin And Subcutaneous T issue 07/16/2009 LOUISE COBOS MD 686.9 Unspecified Local Infection Of Skin And Subcutaneous Tissue 07/16/2009 JERMAINE FERRER APRN 686.9 Unspecified Local Infection Of Skin And Subcutaneous T issue 07/16/2009 ARIAN US PSYD L 686.9 Unspecified Local Infection Of Skin And Subcutaneous T issue 07/16/2009 ARIAN US PSYD L 686.9 Unspecified Local Infection Of Skin And Subcutaneous T issue 07/16/2009 ARIAN US PSYD L 686.9 Unspecified Local Infection Of Skin And Subcutaneous T issue 07/16/2009 ARIAN US PSYD L 686.9 Unspecified Local Infection Of Skin And Subcutaneous T issue 07/16/2009 BEVERLY TAO APRN S 686.9 Unspecified Local Infection Of Skin And Subcutaneous T issue 07/16/2009 ARIAN US PSYD L 686.9 Unspecified Local Infection Of Skin And Subcutaneous T issue 07/16/2009 LUCIANO WILLARD DO 686.9 Unspecified Local Infection Of Skin And Subcutaneous Tissue 07/16/2009 LOUISE COBOS MD 686.9 Unspecified Local Infection Of Skin And Subcutaneous Tissue 07/16/2009 ARIAN US PSYD L 686.9 Unspecified Local Infection Of Skin And Subcutaneous T issue 07/16/2009 BEVERLY TAO APRN S 686.9 Unspecified Local Infection Of Skin And Subcutaneous T issue 07/16/2009 ARIAN US PSYD L 686.9 Unspecified Local Infection Of Skin And Subcutaneous T issue 07/16/2009 ARIAN US PSYD L 686.9 Unspecified Local Infection Of Skin And Subcutaneous T issue 07/16/2009 BEVERLY TAO APRN S 686.9 Unspecified Local Infection Of Skin And Subcutaneous T issue 07/16/2009 ARIAN US PSYD ANN L 686.9 Unspecified Local Infection Of Skin And Subcutaneous T issue 07/16/2009 NELSON CHURCH WORKER, JAVAD 686 .9 Unspecified Local Infection Of Skin And Subcutaneous Tissue 07/16/2009 BEVERLY TAO APRN S 686.9 Unspecified Local Infection Of Skin And Subcutaneous T issue 07/16/2009 NELSON CHURCH WORKER, JAVAD 686 .9 Unspecified Local Infection Of Skin And Subcutaneous Tissue 07/16/2009 ARIAN US PSYD ANN L 686.9 Unspecified Local Infection Of Skin And Subcutaneous T issue 07/16/2009 ARIAN US PSYD ANN L 686.9 Unspecified Local Infection Of Skin And Subcutaneous T issue 07/16/2009 ARIAN US PSYD ANN L 686.9 Unspecified Local Infection Of Skin And Subcutaneous T issue 07/16/2009 BEVERLY TAO APRN S 686.9 Unspecified Local Infection Of Skin And Subcutaneous T issue 07/16/2009 CATALINA MCKNIGHT APRN A 68 6.9 Unspecified Local Infection Of Skin And Subcutaneous Tissue 07/16/2009 NELSON OCONNOR JAVAD 686 .9 Unspecified Local Infection Of Skin And Subcutaneous Tissue 07/16/2009 ARIAN US PSYD ANN L 686.9 Unspecified Local Infection Of Skin And Subcutaneous T issue 07/16/2009 ARIAN US PSYD ANN L 686.9 Unspecified Local Infection Of Skin And Subcutaneous T issue 07/16/2009 BEVERLY TAO APRN S 686.9 Unspecified Local Infection Of Skin And Subcutaneous T issue 07/16/2009 ARIAN US PSYD ANN L 686.9 Unspecified Local Infection Of Skin And Subcutaneous T issue 07/16/2009 ARIAN US PSYD ANN L 686.9 Unspecified Local Infection Of Skin And Subcutaneous T issue 07/16/2009 ROXANNA OCONNOR CATALINA A 68 6.9 Unspecified Local Infection Of Skin And Subcutaneous Tissue 07/16/2009 ARIAN US PSYD ANN L 686.9 Unspecified Local Infection Of Skin And Subcutaneous T issue 07/16/2009 ARIAN US PSYD ANN L 686.9 Unspecified Local Infection Of Skin And Subcutaneous T issue 07/16/2009 ARIAN US PSYD ANN L 686.9 Unspecified Local Infection Of Skin And Subcutaneous T issue 09/30/2009 847.0 Spra in/strain Neck 09/30/2009 847.0 Spra in/strain Neck 09/30/2009 847.0 Spra in/strain Neck 09/30/2009 BEVERLY TAO APRN 847.0 Sprain/strain Neck 09/30/2009 ARIAN US PSYD ANN L 847.0 Sprain/strain Neck 09/30/2009 ARIAN US PSYD ANN L 847.0 Sprain/strain Neck 09/30/2009 847.0 Spra in/strain Neck 09/30/2009 ARIAN US PSYD ANN L 847.0 Sprain/strain Neck 09/30/2009 847.0 Spra in/strain Neck 09/30/2009 847.0 Spra in/strain Neck 09/30/2009 847.0 Spra in/strain Neck 09/30/2009 847.0 Spra in/strain Neck 09/30/2009 847.0 Spra in/strain Neck 09/30/2009 847.0 Spra in/strain Neck 09/30/2009 847.0 Spra in/strain Neck 09/30/2009 847.0 Spra in/strain Neck 09/30/2009 847.0 Spra in/strain Neck 09/30/2009 847.0 Spra in/strain Neck 09/30/2009 847.0 Spra in/strain Neck 09/30/2009 847.0 Spra in/strain Neck 09/30/2009 847.0 Spra in/strain Neck 09/30/2009 847.0 Spra in/strain Neck 09/30/2009 ARIAN US PSYD L 847.0 Sprain/strain Neck 09/30/2009 ARIAN US PSYD ANN L 847.0 Sprain/strain Neck 09/30/2009 LUCIANO WILLARD DO 847.0 Sprain/strain Neck 09/30/2009 JERMAINE FERRER APRN 847.0 Sprain/strain Neck 09/30/2009 ABEBA GARZA, DAISHA L 847.0 Sprain/strain Neck 09/30/2009 CATALINA MCKNIGHT APRN A 84 7.0 Sprain/strain Neck 09/30/2009 BEVERLY TAO APRN S 847.0 Sprain/strain Neck 09/30/2009 JERMAINE FERRER APRN D 847.0 Sprain/strain Neck 09/30/2009 ABEBA GARZA, DAISHA L 847.0 Sprain/strain Neck 09/30/2009 HARLEEN LOU APRN T 84 7.0 Sprain/strain Neck 09/30/2009 DASHA CHURCH WORKERHARLEEN Solitario T 84 7.0 Sprain/strain Neck 09/30/2009 ARIAN US PSYD ANN L 847.0 Sprain/strain Neck 09/30/2009 ABEBA GARZA DAISHA L 847.0 Sprain/strain Neck 09/30/2009 LOUISE COBOS MD 847.0 Sprain/strain Neck 09/30/2009 JERMAINE FERRER APRN D 847.0 Sprain/strain Neck 09/30/2009 ABEBA GARZA, DAISHA L 847.0 Sprain/strain Neck 09/30/2009 ABEBA GARZA DAISHA L 847.0 Sprain/strain Neck 09/30/2009 ABEBA GARZA DAISHA L 847.0 Sprain/strain Neck 09/30/2009 ABEBA GARZA DAISHA L 847.0 Sprain/strain Neck 09/30/2009 BEVERLY TAO APRN S 847.0 Sprain/strain Neck 09/30/2009 ABEBA GARZA DAISHA L 847.0 Sprain/strain Neck 09/30/2009 LUCIANO WILLARD DO 847.0 Sprain/strain Neck 09/30/2009 LOUISE COBOS MD 847.0 Sprain/strain Neck 09/30/2009 ABEBA GARZA DAISHA L 847.0 Sprain/strain Neck 09/30/2009 BEVERLY TAO APRN S 847.0 Sprain/strain Neck 09/30/2009 ABEBA GARZA DAISHA L 847.0 Sprain/strain Neck 09/30/2009 ABEBA GARZA, DAISHA L 847.0 Sprain/strain Neck 09/30/2009 AISLINN OCONNOR BEVERLY S 847.0 Sprain/strain Neck 09/30/2009 ABEBA GARZA, DAISHA L 847.0 Sprain/strain Neck 09/30/2009 NELSON CHURCH WORKER, JAVAD 847 .0 Sprain/strain Neck 09/30/2009 AISLINN CHURCH WORKERCLAUDE SolitarioNDA S 847.0 Sprain/strain Neck 09/30/2009 NELSON CHURCH WORKER, JAVAD 847 .0 Sprain/strain Neck 09/30/2009 ARIAN US PSYD ANN L 847.0 Sprain/strain Neck 09/30/2009 ARIAN US PSYD ANN L 847.0 Sprain/strain Neck 09/30/2009 ABEBA GARZA, DAISHA L 847.0 Sprain/strain Neck 09/30/2009 BEVERLY TAO APRN S 847.0 Sprain/strain Neck 09/30/2009 ROXANNACARLOS EDUARDO OCONNOR CATALINA A 84 7.0 Sprain/strain Neck 09/30/2009 NELSON CHURCH WORKER, JAVAD 847 .0 Sprain/strain Neck 09/30/2009 ARIAN US PSYD ANN L 847.0 Sprain/strain Neck 09/30/2009 ABEBA GARZA DAISHA L 847.0 Sprain/strain Neck 09/30/2009 BEVERLY TAO APRN S 847.0 Sprain/strain Neck 09/30/2009 ARIAN US PSYD ANN L 847.0 Sprain/strain Neck 09/30/2009 ABEBA GARZA, DAISHA L 847.0 Sprain/strain Neck 09/30/2009 ROXANNAKassi OCONNOR CATALINA A 84 7.0 Sprain/strain Neck 09/30/2009 ABEBA GARZA DAISHA L 847.0 Sprain/strain Neck 09/30/2009 ABEBA GARZA DAISHA L 847.0 Sprain/strain Neck 09/30/2009 ARIAN US PSYD ANN L 847.0 Sprain/strain Neck 01/07/2010 796.2 Elev ated Blood Pressure Reading Without Diagnosis Of Hypertension 01/07/2010 796.2 Elev ated Blood Pressure Reading Without Diagnosis Of Hypertension 01/07/2010 796.2 Elev ated Blood Pressure Reading Without Diagnosis Of Hypertension 01/07/2010 BEVERLY TAO APRN 796.2 Elevated Blood Pressure Reading Without Diagnosis Of H ypertension 01/07/2010 ARIAN US PSYD ANN L 796.2 Elevated Blood Pressure Reading Without Diagnosis Of H ypertension 01/07/2010 ARIAN US PSYD ANN L 796.2 Elevated Blood Pressure Reading Without Diagnosis Of H ypertension 01/07/2010 796.2 Elev ated Blood Pressure Reading Without Diagnosis Of Hypertension 01/07/2010 ARIAN US PSYD ANN L 796.2 Elevated Blood Pressure Reading Without Diagnosis Of H ypertension 01/07/2010 796.2 Elev ated Blood Pressure Reading Without Diagnosis Of Hypertension 01/07/2010 796.2 Elev ated Blood Pressure Reading Without Diagnosis Of Hypertension 01/07/2010 796.2 Elev ated Blood Pressure Reading Without Diagnosis Of Hypertension 01/07/2010 796.2 Elev ated Blood Pressure Reading Without Diagnosis Of Hypertension 01/07/2010 796.2 Elev ated Blood Pressure Reading Without Diagnosis Of Hypertension 01/07/2010 796.2 Elev ated Blood Pressure Reading Without Diagnosis Of Hypertension 01/07/2010 796.2 Elev ated Blood Pressure Reading Without Diagnosis Of Hypertension 01/07/2010 796.2 Elev ated Blood Pressure Reading Without Diagnosis Of Hypertension 01/07/2010 796.2 Elev ated Blood Pressure Reading Without Diagnosis Of Hypertension 01/07/2010 796.2 Elev ated Blood Pressure Reading Without Diagnosis Of Hypertension 01/07/2010 796.2 Elev ated Blood Pressure Reading Without Diagnosis Of Hypertension 01/07/2010 796.2 Elev ated Blood Pressure Reading Without Diagnosis Of Hypertension 01/07/2010 796.2 Elev ated Blood Pressure Reading Without Diagnosis Of Hypertension 01/07/2010 796.2 Elev ated Blood Pressure Reading Without Diagnosis Of Hypertension 01/07/2010 ARIAN US PSYD ANN L 796.2 Elevated Blood Pressure Reading Without Diagnosis Of H ypertension 01/07/2010 ARIAN US PSYD ANN L 796.2 Elevated Blood Pressure Reading Without Diagnosis Of H ypertension 01/07/2010 LUCIANO WILLARD DO 796.2 Elevated Blood Pressure Reading Without Diagnosis Of Hypertension 01/07/2010 JERMAINE FERRER APRN 796.2 Elevated Blood Pressure Reading Without Diagnosis Of H ypertension 01/07/2010 ARIAN US PSYD ANN L 796.2 Elevated Blood Pressure Reading Without Diagnosis Of H ypertension 01/07/2010 CATALINA MCKNIGHT APRN A 79 6.2 Elevated Blood Pressure Reading Without Diagnosis Of Hypertension 01/07/2010 BEVERLY TAO APRN S 796.2 Elevated Blood Pressure Reading Without Diagnosis Of H ypertension 01/07/2010 JERMAINE FERRER APRN 796.2 Elevated Blood Pressure Reading Without Diagnosis Of H ypertension 01/07/2010 ARIAN US PSYD ANN L 796.2 Elevated Blood Pressure Reading Without Diagnosis Of H ypertension 01/07/2010 HARLEEN LOU APRN 79 6.2 Elevated Blood Pressure Reading Without Diagnosis Of Hypertension 01/07/2010 HARLEEN LOU APRN 79 6.2 Elevated Blood Pressure Reading Without Diagnosis Of Hypertension 01/07/2010 ARIAN US PSYD ANN L 796.2 Elevated Blood Pressure Reading Without Diagnosis Of H ypertension 01/07/2010 ARIAN US PSYD ANN L 796.2 Elevated Blood Pressure Reading Without Diagnosis Of H ypertension 01/07/2010 LOUISE COBOS MD 796.2 Elevated Blood Pressure Reading Without Diagnosis Of Hypertension 01/07/2010 JERMAINE FERRER APRN 796.2 Elevated Blood Pressure Reading Without Diagnosis Of H ypertension 01/07/2010 ARIAN US PSYD ANN L 796.2 Elevated Blood Pressure Reading Without Diagnosis Of H ypertension 01/07/2010 ARIAN US PSYD ANN L 796.2 Elevated Blood Pressure Reading Without Diagnosis Of H ypertension 01/07/2010 ARIAN US PSYD ANN L 796.2 Elevated Blood Pressure Reading Without Diagnosis Of H ypertension 01/07/2010 ARIAN US PSYD ANN L 796.2 Elevated Blood Pressure Reading Without Diagnosis Of H ypertension 01/07/2010 AISLINN OCONNOR, BEVERLY S 796.2 Elevated Blood Pressure Reading Without Diagnosis Of H ypertension 01/07/2010 ARIAN US PSYD ANN L 796.2 Elevated Blood Pressure Reading Without Diagnosis Of H ypertension 01/07/2010 LUCIANO WILLARD DO 796.2 Elevated Blood Pressure Reading Without Diagnosis Of Hypertension 01/07/2010 LOUISE COBOS MD 796.2 Elevated Blood Pressure Reading Without Diagnosis Of Hypertension 01/07/2010 ARIAN US PSYD ANN L 796.2 Elevated Blood Pressure Reading Without Diagnosis Of H ypertension 01/07/2010 AISLINNCHICHI OCONNOR BEVERLY S 796.2 Elevated Blood Pressure Reading Without Diagnosis Of H ypertension 01/07/2010 ARIAN US PSYD ANN L 796.2 Elevated Blood Pressure Reading Without Diagnosis Of H ypertension 01/07/2010 ARIAN US PSYD ANN L 796.2 Elevated Blood Pressure Reading Without Diagnosis Of H ypertension 01/07/2010 LATONYA TAO APRNA S 796.2 Elevated Blood Pressure Reading Without Diagnosis Of H ypertension 01/07/2010 RAIAN US PSYD ANN L 796.2 Elevated Blood Pressure Reading Without Diagnosis Of H ypertension 01/07/2010 JAVAD DAMON APRN 796 .2 Elevated Blood Pressure Reading Without Diagnosis Of Hypertension 01/07/2010 LATONYA TAO APRNA S 796.2 Elevated Blood Pressure Reading Without Diagnosis Of H ypertension 01/07/2010 NELSON OCONNOR JAVAD 796 .2 Elevated Blood Pressure Reading Without Diagnosis Of Hypertension 01/07/2010 ARIAN US PSYD ANN L 796.2 Elevated Blood Pressure Reading Without Diagnosis Of H ypertension 01/07/2010 ARIAN US PSYD ANN L 796.2 Elevated Blood Pressure Reading Without Diagnosis Of H ypertension 01/07/2010 ARIAN US PSYD ANN L 796.2 Elevated Blood Pressure Reading Without Diagnosis Of H ypertension 01/07/2010 AISLINN OCONNOR BEVERLY S 796.2 Elevated Blood Pressure Reading Without Diagnosis Of H ypertension 01/07/2010 CATALINA MCKNIGHT APRN 79 6.2 Elevated Blood Pressure Reading Without Diagnosis Of Hypertension 01/07/2010 NELSON CHURCH WORKERJAVAD Solitario 796 .2 Elevated Blood Pressure Reading Without Diagnosis Of Hypertension 01/07/2010 ARIAN US PSYD ANN L 796.2 Elevated Blood Pressure Reading Without Diagnosis Of H ypertension 01/07/2010 ARIAN US PSYD ANN L 796.2 Elevated Blood Pressure Reading Without Diagnosis Of H ypertension 01/07/2010 BEVERLY TAO APRN S 796.2 Elevated Blood Pressure Reading Without Diagnosis Of H ypertension 01/07/2010 ARIAN US PSYD ANN L 796.2 Elevated Blood Pressure Reading Without Diagnosis Of H ypertension 01/07/2010 ARIAN US PSYD ANN L 796.2 Elevated Blood Pressure Reading Without Diagnosis Of H ypertension 01/07/2010 ROXANNAKassi OCONNOR CATALINA A 79 6.2 Elevated Blood Pressure Reading Without Diagnosis Of Hypertension 01/07/2010 ARIAN US PSYD ANN L 796.2 Elevated Blood Pressure Reading Without Diagnosis Of H ypertension 01/07/2010 ARIAN US PSYD ANN L 796.2 Elevated Blood Pressure Reading Without Diagnosis Of H ypertension 01/07/2010 ARIAN US PSYD ANN L 796.2 Elevated Blood Pressure Reading Without Diagnosis Of H ypertension 03/05/2010 272.1 Pure Hyperglyceridemia 03/05/2010 272.1 Pure [...] 272.1 Pure Hyperglyceridemia 03/05/2010 LUCIANO WILLARD DO 272.1 Pure Hyperglyceridemia 03/05/2010 JERMAINE FERRER APRN D 272.1 Pure Hyperglyceridemia 03/05/2010 ARIAN US PSYD ANN L 272.1 Pure Hyperglyceridemia 03/05/2010 CATALINA MCKNIGHT APRN A 27 2.1 Pure Hyperglyceridemia 03/05/2010 BEVERLY TAO APRN S 272.1 Pure Hyperglyceridemia 03/05/2010 JERMAINE FERRER APRN D 272.1 Pure Hyperglyceridemia 03/05/2010 ARIAN US PSYD ANN L 272.1 Pure Hyperglyceridemia 03/05/2010 DASHA OCONNOR HARLEEN T 27 2.1 Pure Hyperglyceridemia 03/05/2010 DASHA OCONNOR HARLEEN T 27 2.1 Pure Hyperglyceridemia 03/05/2010 ARIAN US PSYD ANN L 272.1 Pure Hyperglyceridemia 03/05/2010 ARIAN US PSYD ANN L 272.1 Pure Hyperglyceridemia 03/05/2010 LOUISE COBOS MD 272.1 Pure Hyperglyceridemia 03/05/2010 JERMAINE FERRER APRN 272.1 Pure Hyperglyceridemia 03/05/2010 ARIAN US PSYD ANN L 272.1 Pure Hyperglyceridemia 03/05/2010 ARIAN US PSYD ANN L 272.1 Pure Hyperglyceridemia 03/05/2010 ARIAN US PSYD ANN L 272.1 Pure Hyperglyceridemia 03/05/2010 ARIAN US PSYD ANN L 272.1 Pure Hyperglyceridemia 03/05/2010 AISLINN CHURCH WORKER, BEVERLY S 272.1 Pure Hyperglyceridemia 03/05/2010 ARIAN US PSYD ANN L 272.1 Pure Hyperglyceridemia 03/05/2010 LUCIANO WILLARD DO K 272.1 Pure Hyperglyceridemia 03/05/2010 LOUISE COBOS MD 272.1 Pure Hyperglyceridemia 03/05/2010 ARIAN US PSYD ANN L 272.1 Pure Hyperglyceridemia 03/05/2010 AISLINNCHICHI OCONNOR, BEVERLY S 272.1 Pure Hyperglyceridemia 03/05/2010 ARIAN US PSYD ANN L 272.1 Pure Hyperglyceridemia 03/05/2010 ARIAN US PSYD ANN L 272.1 Pure Hyperglyceridemia 03/05/2010 AISLINN OCONNOR BEVERLY S 272.1 Pure Hyperglyceridemia 03/05/2010 ARIAN US PSYD ANN L 272.1 Pure Hyperglyceridemia 03/05/2010 JAVAD DAMON APRN 272 .1 Pure Hyperglyceridemia 03/05/2010 AISLINN OCONNOR BEVERLY S 272.1 Pure Hyperglyceridemia 03/05/2010 JAVAD DAMON APRN 272 .1 Pure Hyperglyceridemia 03/05/2010 ARIAN US PSYD ANN L 272.1 Pure Hyperglyceridemia 03/05/2010 ARIAN US PSYD ANN L 272.1 Pure Hyperglyceridemia 03/05/2010 ARIAN US PSYD ANN L 272.1 Pure Hyperglyceridemia 03/05/2010 AISLINN OCONNOR BEVERLY S 272.1 Pure Hyperglyceridemia 03/05/2010 ROXANNACARLOS EDUARDO OCONNOR CATALINA A 27 2.1 Pure Hyperglyceridemia 03/05/2010 NELSON OCONNOR JAVAD 272 .1 Pure Hyperglyceridemia 03/05/2010 ARIAN US PSYD ANN L 272.1 Pure Hyperglyceridemia 03/05/2010 ARIAN US PSYD ANN L 272.1 Pure Hyperglyceridemia 03/05/2010 AISLINN OCONNOR BEVERLY S 272.1 Pure Hyperglyceridemia 03/05/2010 ARIAN US PSYD ANN L 272.1 Pure Hyperglyceridemia 03/05/2010 ARIAN US PSYD L 272.1 Pure Hyperglyceridemia 03/05/2010 ROXANNA ANASTASIA CATALINA A 27 2.1 Pure Hyperglyceridemia 03/05/2010 ARIAN US PSYD L 272.1 Pure Hyperglyceridemia 03/05/2010 ARIAN US PSYD L 272.1 Pure Hyperglyceridemia 03/05/2010 ARIAN US [...] DEPRESSIVE RECURRENT SEVERE W/O PSYCHOTIC BEHAVIOR 07/01/2010 AIRAN US PSYD ANN L 296.33 MO DEPRESSIVE RECURRENT SEVERE 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 07/01/2010 ARIAN US PSYD ANN L 296.33 MO DEPRESSIVE RECURRENT SEVERE W/O PSYCHOTIC BEHAVIOR 07/01/2010 LUCIANO WILLARD DO 296.33 MO DEPRESSIVE RECURRENT SEVERE W/O PSYCHOTIC BEHAVIOR 07/01/2010 JERMAINE FERRER APRN D 296.33 MO DEPRESSIVE RECURRENT SEVERE W/O PSYCHOTIC [...] DEPRESSIVE RECURRENT SEVERE W/O PSYCHOTIC BEHAVIOR 07/01/2010 DASHA OCONNOR HARLEEN T 296.33 MO DEPRESSIVE RECURRENT SEVERE W/O PSYCHOTIC BEHAVIOR 07/01/2010 DASHA OCONNOR HARLEEN T 296.33 MO DEPRESSIVE RECURRENT SEVERE W/O PSYCHOTIC BEHAVIOR 07/01/2010 ARIAN US PSYD L 296.33 MO DEPRESSIVE RECURRENT SEVERE W/O PSYCHOTIC BEHAVIOR 07/01/2010 ARIAN US PSYD ANN L 296.33 MO DEPRESSIVE RECURRENT SEVERE W/O PSYCHOTIC BEHAVIOR 07/01/2010 LOUISE COBOS MD 296.3 3 MO DEPRESSIVE RECURRENT SEVERE W/O PSYCHOTIC BEHAVIOR [...] RECURRENT SEVERE W/O PSYCHOTIC BEHAVIOR 07/01/2010 AISLINN OCONNOR, BEVERLY S 296.33 MO DEPRESSIVE RECURRENT SEVERE W/O PSYCHOTIC BEHAVIOR 07/01/2010 ARIAN US PSYD ANN L 296.33 MO DEPRESSIVE RECURRENT SEVERE W/O PSYCHOTIC BEHAVIOR 07/01/2010 SUDHEER MORRIS LUCIANO Reji 296.33 MO DEPRESSIVE RECURRENT SEVERE W/O PSYCHOTIC BEHAVIOR 07/01/2010 PAPITO GAYLE, LOUISE 296.3 3 MO DEPRESSIVE RECURRENT SEVERE W/O PSYCHOTIC BEHAVIOR 07/01/2010 ARIAN US PSYD ANN L 296.33 MO DEPRESSIVE RECURRENT SEVERE W/O PSYCHOTIC BEHAVIOR 07/01/2010 AISLINN OCONNOR BEVERLY S 296.33 MO DEPRESSIVE RECURRENT SEVERE W/O PSYCHOTIC BEHAVIOR 07/01/2010 ARIAN US PSYD ANN L 296.33 MO DEPRESSIVE RECURRENT SEVERE W/O PSYCHOTIC BEHAVIOR 07/01/2010 ARIAN US PSYD ANN L 296.33 MO DEPRESSIVE RECURRENT SEVERE W/O PSYCHOTIC BEHAVIOR 07/01/2010 CLAUDE TAO APRNNDA S 296.33 MO DEPRESSIVE RECURRENT SEVERE W/O PSYCHOTIC BEHAVIOR 07/01/2010 ARIAN US PSYD L 296.33 MO DEPRESSIVE RECURRENT SEVERE W/O PSYCHOTIC BEHAVIOR 07/01/2010 NELSON OCONNOR JAVAD 296 .33 MO DEPRESSIVE RECURRENT SEVERE W/O PSYCHOTIC BEHAVIOR 07/01/2010 AISLINN OCONNOR BEVERLY S 296.33 MO DEPRESSIVE RECURRENT SEVERE W/O PSYCHOTIC BEHAVIOR 07/01/2010 NELSON OCONNOR JAVAD 296 .33 MO DEPRESSIVE RECURRENT SEVERE W/O PSYCHOTIC BEHAVIOR [...] W/O PSYCHOTIC BEHAVIOR 07/01/2010 NELSON OCONNOR JAVAD 296 .33 MO DEPRESSIVE RECURRENT SEVERE W/O PSYCHOTIC BEHAVIOR [...] W/O PSYCHOTIC BEHAVIOR 07/01/2010 CATALINA MCKNIGHT APRN 296.33 MO DEPRESSIVE RECURRENT SEVERE W/O PSYCHOTIC BEHAVIOR 07/01/2010 ARIAN US PSYD L 296.33 MO DEPRESSIVE RECURRENT SEVERE W/O PSYCHOTIC BEHAVIOR 07/01/2010 ARIAN US PSYD L 296.33 MO DEPRESSIVE RECURRENT SEVERE W/O PSYCHOTIC BEHAVIOR 07/01/2010 ARIAN US PSYD L 296.33 MO DEPRESSIVE RECURRENT SEVERE W/O PSYCHOTIC BEHAVIOR 07/09/2010 Ot 250.00 CELESTINO B RIMMA WO COMPL, TYPE II OR UNSPEC TY 07/09/2010 Ot V58.67 ERENDIRA G-TERM (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 OF INSULIN 10/16/2010 296.89 MO BIPOLAR II 10/16/2010 296.89 MO BIPOLAR II 10/16/2010 296.89 MO BIPOLAR II 10/16/2010 BEVERLY TAO APRN 296.89 MO BIPOLAR II 10/16/2010 ARIAN US PSYD L 296.89 MO BIPOLAR II 10/16/2010 ARIAN US PSYD L 296.89 MO BIPOLAR II 10/16/2010 296.89 MO BIPOLAR II 10/16/2010 ARIAN US PSYD L 296.89 MO BIPOLAR II 10/16/2010 296.89 MO [...] APRN 296.89 MO BIPOLAR II 10/16/2010 ARIAN SU PSYD L 296.89 MO BIPOLAR II 10/16/2010 CATALINA MCKNIGHT APRN 296.89 MO BIPOLAR II 10/16/2010 BEVERLY TAO APRN S 296.89 MO BIPOLAR II 10/16/2010 JERMAINE FERRER APRN 296.89 MO BIPOLAR II 10/16/2010 ARIAN US PSYD L 296.89 MO BIPOLAR II 10/16/2010 HARLEEN LOU APRN 296.89 MO BIPOLAR II 10/16/2010 HARLEEN LOU APRN 296.89 MO BIPOLAR II 10/16/2010 ARIAN US PSYD L 296.89 MO BIPOLAR II 10/16/2010 ARIAN US PSYD L 296.89 MO BIPOLAR II 10/16/2010 LOUISE COBOS MD 296.8 9 MO BIPOLAR II 10/16/2010 JERMAINE FERRER APRN 296.89 MO BIPOLAR II 10/16/2010 ARIAN US PSYD L 296.89 MO BIPOLAR II 10/16/2010 ARIAN US PSYD L 296.89 MO BIPOLAR II 10/16/2010 ARIAN US PSYD L 296.89 MO BIPOLAR II 10/16/2010 ARIAN US PSYD ANN L 296.89 MO BIPOLAR II 10/16/2010 BEVERLY TAO APRN S 296.89 MO BIPOLAR II 10/16/2010 ARIAN US PSYD ANN L 296.89 MO BIPOLAR II 10/16/2010 SUDHEER MORRIS LUCIANO K 296.89 MO BIPOLAR II 10/16/2010 PAPITO GAYLE, LOUISE 296.8 9 MO BIPOLAR II 10/16/2010 ARIAN US PSYD ANN L 296.89 MO BIPOLAR II 10/16/2010 AISLINN OCONNOR, BEVERLY S 296.89 MO BIPOLAR II 10/16/2010 ARIAN US PSYD ANN L 296.89 MO BIPOLAR II 10/16/2010 ARIAN US PSYD ANN L 296.89 MO BIPOLAR II 10/16/2010 AISLINN OCONNOR BEVERLY S 296.89 MO BIPOLAR II 10/16/2010 ARIAN US PSYD ANN L 296.89 MO BIPOLAR II 10/16/2010 NELSON OCONNOR JAVAD 296 .89 MO BIPOLAR II 10/16/2010 CLAUDE TAO APRNNDA S 296.89 MO BIPOLAR II 10/16/2010 NELSON OCONNOR JAVAD 296 .89 MO BIPOLAR II 10/16/2010 ARIAN US PSYD ANN L 296.89 MO BIPOLAR II 10/16/2010 ARIAN US PSYD ANN L 296.89 MO BIPOLAR II 10/16/2010 ARIAN US PSYD ANN L 296.89 MO BIPOLAR II 10/16/2010 CLAUDE TAO APRNNDA S 296.89 MO BIPOLAR II 10/16/2010 ROXANNA OCONNOR CATALINA A 296.89 MO BIPOLAR II 10/16/2010 NELSON OCONNOR JAVAD 296 .89 MO BIPOLAR II 10/16/2010 ARIAN US PSYD [...] US PSYD L 296.89 MO BIPOLAR II 01/22/2011 296.62 [...] MO BIPOLAR I MIXED MODERATE 01/22/2011 AISLINN CHURCH WORKER, BEVERLY S 296.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 I MIXED MODERATE 01/22/2011 JERMAINE FERRER APRN D 296.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 I MIXED MODERATE 01/22/2011 ARIAN US PSYD ANN L 296.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 I MIXED MODERATE 01/22/2011 DASHA ANASTASIA, HARLEEN T 296.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 I MIXED MODERATE 01/22/2011 DASHA ANASTASIA HARLEEN T 296.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 I MIXED MODERATE 01/22/2011 ARIAN US PSYD ANN L 296.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 I MIXED MODERATE 01/22/2011 ARIAN SU PSYD ANN L 296.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 I MIXED MODERATE 01/22/2011 LOUISE COBOS MD 296.6 2 MO BIPOLAR I MIXED MODERATE 01/22/2011 JERMAINE [...] 296.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 I MIXED MODERATE 01/22/2011 LATONYA TAO APRNA S 296.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 I MIXED MODERATE 01/22/2011 ARIAN US PSYD ANN L 296.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 I MIXED MODERATE 01/22/2011 LUCIANO WILLARD DO 296.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 I MIXED MODERATE 01/22/2011 LOUISE COBOS MD 296.6 2 MO BIPOLAR I MIXED MODERATE 01/22/2011 ARIAN US PSYD ANN L 296.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 I MIXED MODERATE 01/22/2011 AISLINN OCONNOR BEVERLY S 296.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 I MIXED MODERATE 01/22/2011 ARIAN US PSYD ANN L 296.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 I MIXED MODERATE 01/22/2011 ARIAN US PSYD ANN L 296.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 I MIXED MODERATE 01/22/2011 AISLINN OCONNOR BEVERLY S 296.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 I MIXED MODERATE 01/22/2011 ARIAN US PSYD ANN L 296.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 I MIXED MODERATE 01/22/2011 NELSON CHURCH WORKER, JAVAD 296 .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 I MIXED MODERATE 01/22/2011 AISLINN CHURCH WORKER, BEVERLY S 296.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 I MIXED MODERATE 01/22/2011 NELSON CHURCH WORKER, JAVAD 296 .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 I MIXED MODERATE 01/22/2011 ARIAN US PSYD ANN L 296.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 I MIXED MODERATE 01/22/2011 ARIAN US PSYD ANN L 296.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 I MIXED MODERATE 01/22/2011 ARIAN US PSYD ANN L 296.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 I MIXED MODERATE 01/22/2011 AISLINN OCONNOR BEVERLY S 296.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 I MIXED MODERATE 01/22/2011 ROXANNA CHURCH WORKER, CATALINA A 296.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 I MIXED MODERATE 01/22/2011 NELSON CHURCH WORKER, JAVAD 296 .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 I MIXED MODERATE 01/22/2011 ARIAN [...] MO BIPOLAR I MIXED MODERATE 02/02/2011 354.0 Carp al Tunnel Syndrome 02/02/2011 535.00 Acu te Gastritis (without Hemorrhage) 02/02/2011 354.0 Carp al Tunnel Syndrome 02/02/2011 535.00 Acu te Gastritis (without Hemorrhage) 02/02/2011 354.0 Carp al Tunnel Syndrome 02/02/2011 535.00 Acu te Gastritis (without Hemorrhage) 02/02/2011 AISLINN CHURCH WORKER, BEVERLY S 354.0 Carpal Tunnel Syndrome 02/02/2011 AISLINN RUIZNBEVERLY S 535.00 Acute Gastritis (without Hemorrhage) 02/02/2011 ARIAN US PSYD ANN L 354.0 Carpal Tunnel Syndrome 02/02/2011 ARIAN US PSYD ANN L 535.00 Acute Gastritis (without Hemorrhage) 02/02/2011 ARIAN US PSYD ANN L 354.0 Carpal Tunnel Syndrome 02/02/2011 ARIAN US PSYD ANN L 535.00 Acute Gastritis (without Hemorrhage) 02/02/2011 354.0 Carp al Tunnel Syndrome 02/02/2011 535.00 Acu te Gastritis (without Hemorrhage) 02/02/2011 ARIAN US PSYD ANN L 354.0 Carpal Tunnel Syndrome 02/02/2011 ARIAN US PSYD ANN L 535.00 Acute Gastritis (without Hemorrhage) 02/02/2011 354.0 Carp al Tunnel Syndrome 02/02/2011 535.00 Acu te Gastritis (without Hemorrhage) 02/02/2011 354.0 Carp al Tunnel Syndrome 02/02/2011 535.00 Acu te Gastritis (without Hemorrhage) 02/02/2011 354.0 Carp al Tunnel Syndrome 02/02/2011 535.00 Acu te Gastritis (without Hemorrhage) 02/02/2011 354.0 Carp al Tunnel Syndrome 02/02/2011 535.00 Acu te Gastritis (without Hemorrhage) 02/02/2011 354.0 Carp al Tunnel Syndrome 02/02/2011 535.00 Acu te Gastritis (without Hemorrhage) 02/02/2011 354.0 Carp al Tunnel Syndrome 02/02/2011 535.00 Acu te Gastritis (without Hemorrhage) 02/02/2011 354.0 Carp al Tunnel Syndrome 02/02/2011 535.00 Acu te Gastritis (without Hemorrhage) 02/02/2011 354.0 Carp al Tunnel Syndrome 02/02/2011 535.00 Acu te Gastritis (without Hemorrhage) 02/02/2011 354.0 Carp al Tunnel Syndrome 02/02/2011 535.00 Acu te Gastritis (without Hemorrhage) 02/02/2011 354.0 Carp al Tunnel Syndrome 02/02/2011 535.00 Acu te Gastritis (without Hemorrhage) 02/02/2011 354.0 Carp al Tunnel Syndrome 02/02/2011 535.00 Acu te Gastritis (without Hemorrhage) 02/02/2011 354.0 Carp al Tunnel Syndrome 02/02/2011 535.00 Acu te Gastritis (without Hemorrhage) 02/02/2011 354.0 Carp al Tunnel Syndrome 02/02/2011 535.00 Acu te Gastritis (without Hemorrhage) 02/02/2011 354.0 Carp al Tunnel Syndrome 02/02/2011 535.00 Acu te Gastritis (without Hemorrhage) 02/02/2011 ARIAN US PSYD [...] Gastritis (without Hemorrhage) 02/02/2011 JERMAINE FERRER APRN 354.0 Carpal Tunnel Syndrome 02/02/2011 JERMAINE FERRER APRN 535.00 Acute Gastritis (without Hemorrhage) 02/02/2011 ARIAN US PSYD L 354.0 Carpal Tunnel Syndrome 02/02/2011 ARIAN US PSYD L 535.00 Acute Gastritis (without Hemorrhage) 02/02/2011 CATALINA MCKNIGHT APRN A 35 4.0 Carpal Tunnel Syndrome 02/02/2011 JASMIN MCKNIGHT APRNIDI A 535.00 Acute Gastritis (without Hemorrhage) 02/02/2011 AISLINN OCONNOR BEVERLY S 354.0 Carpal Tunnel Syndrome 02/02/2011 AISLINN OCONNOR BEVERLY S 535.00 Acute Gastritis (without Hemorrhage) 02/02/2011 JERMAINE FERRER APRN D 354.0 Carpal Tunnel Syndrome 02/02/2011 JERMAINE FERRER APRN D 535.00 Acute Gastritis (without Hemorrhage) 02/02/2011 ARIAN US PSYD L 354.0 Carpal Tunnel Syndrome 02/02/2011 ARIAN US PSYD ANN L 535.00 Acute Gastritis (without Hemorrhage) 02/02/2011 DASHA CHURCH WORKER, HARLEEN T 35 4.0 Carpal Tunnel Syndrome 02/02/2011 DASHA ANASTASIA HARLEEN Quintana 535.00 Acute Gastritis (without Hemorrhage) 02/02/2011 DASHA OCONNOR HARLEEN T 35 4.0 Carpal Tunnel Syndrome 02/02/2011 DASHA ANASTASIA HARLEEN Quintana 535.00 Acute Gastritis (without Hemorrhage) 02/02/2011 ARIAN US PSYD ANN L 354.0 Carpal Tunnel Syndrome 02/02/2011 ARIAN US PSYD ANN L 535.00 Acute Gastritis (without Hemorrhage) 02/02/2011 ARIAN US PSYD ANN L 354.0 Carpal Tunnel Syndrome 02/02/2011 ARIAN US PSYD ANN L 535.00 Acute Gastritis (without Hemorrhage) 02/02/2011 LOUISE COBOS MD 354.0 Carpal Tunnel Syndrome 02/02/2011 LOUISE COBOS MD 535.0 0 Acute Gastritis (without Hemorrhage) 02/02/2011 JERMAINE FERRER APRN D 354.0 Carpal Tunnel Syndrome 02/02/2011 JERMAINE FERRER APRN 535.00 Acute Gastritis (without Hemorrhage) 02/02/2011 ARIAN [...] S 354.0 Carpal Tunnel Syndrome 02/02/2011 AISLINN OCONNOR BEVERLY S 535.00 Acute Gastritis (without Hemorrhage) 02/02/2011 ARIAN US PSYD ANN L 354.0 Carpal Tunnel Syndrome 02/02/2011 ARIAN US PSYD ANN L 535.00 Acute Gastritis (without Hemorrhage) 02/02/2011 WILLARD DO LUCIANO K 354.0 Carpal Tunnel Syndrome 02/02/2011 WILLARD DO LUCIANO K 535.00 Acute Gastritis (without Hemorrhage) 02/02/2011 LOUISE COBOS MD 354.0 Carpal Tunnel Syndrome 02/02/2011 LOUISE COBOS MD 535.0 0 Acute Gastritis (without Hemorrhage) 02/02/2011 ARIAN US PSYD ANN L 354.0 Carpal Tunnel Syndrome 02/02/2011 ARIAN US PSYD ANN L 535.00 Acute Gastritis (without Hemorrhage) 02/02/2011 AISLINN CHURCH WORKER, BEVERLY S 354.0 Carpal Tunnel Syndrome 02/02/2011 AISLINN CHURCH WORKER, BEVERLY S 535.00 Acute Gastritis (without Hemorrhage) 02/02/2011 ARIAN US PSYD ANN L 354.0 Carpal Tunnel Syndrome 02/02/2011 ARIAN US PSYD ANN L 535.00 Acute Gastritis (without Hemorrhage) 02/02/2011 ARIAN US PSYD ANN L 354.0 Carpal Tunnel Syndrome 02/02/2011 ARIAN US PSYD ANN L 535.00 Acute Gastritis (without Hemorrhage) 02/02/2011 AISLINN CHURCH WORKER, BEVERLY S 354.0 Carpal Tunnel Syndrome 02/02/2011 AISLINN CHURCH WORKER, BEVERLY S 535.00 Acute Gastritis (without Hemorrhage) 02/02/2011 ARIAN US PSYD ANN L 354.0 Carpal Tunnel Syndrome 02/02/2011 ARIAN US PSYD ANN L 535.00 Acute Gastritis (without Hemorrhage) 02/02/2011 NELSON CHURCH WORKER, JAVAD 354 .0 Carpal Tunnel Syndrome 02/02/2011 NELSON CHURCH WORKER, JAVAD 535 .00 Acute Gastritis (without Hemorrhage) 02/02/2011 AISLINN CHURCH WORKER, BEVERLY S 354.0 Carpal Tunnel Syndrome 02/02/2011 AISLINN CHURCH WORKER, BEVERLY S 535.00 Acute Gastritis (without Hemorrhage) 02/02/2011 NELSON CHURCH WORKER, JAVAD 354 .0 Carpal Tunnel Syndrome 02/02/2011 NELSON CHURCH WORKER, JAVAD 535 .00 Acute Gastritis (without Hemorrhage) 02/02/2011 ARIAN US [...] 535.00 Acute Gastritis (without Hemorrhage) 02/02/2011 AISLINN CHURCH WORKER, BEVERLY S 354.0 Carpal Tunnel Syndrome 02/02/2011 AISLINN CHURCH WORKER, BEVERLY S 535.00 Acute Gastritis (without Hemorrhage) 02/02/2011 ROXANNA CHURCH WORKER, CATALINA A 35 4.0 Carpal Tunnel Syndrome 02/02/2011 ROXANNA CHURCH WORKER, CATALINA A 535.00 Acute Gastritis (without Hemorrhage) 02/02/2011 NELSON CHURCH WORKER, JAVAD 354 .0 Carpal Tunnel Syndrome 02/02/2011 NELSON CHURCH WORKER, JAVAD 535 .00 Acute Gastritis (without Hemorrhage) 02/02/2011 ARIAN US PSYD ANN L 354.0 Carpal Tunnel Syndrome 02/02/2011 ARIAN US PSYD ANN L 535.00 Acute Gastritis (without Hemorrhage) 02/02/2011 ARIAN US PSYD ANN L 354.0 Carpal Tunnel Syndrome 02/02/2011 ARIAN US PSYD ANN L 535.00 Acute Gastritis (without Hemorrhage) 02/02/2011 AISLINN CHURCH WORKER, BEVERLY S 354.0 Carpal Tunnel Syndrome 02/02/2011 AISLINN CHURCH WORKER, BEVERLY S 535.00 Acute Gastritis (without Hemorrhage) 02/02/2011 ARIAN US PSYD ANN L 354.0 Carpal Tunnel Syndrome 02/02/2011 ARIAN US PSYD ANN L 535.00 Acute Gastritis (without Hemorrhage) 02/02/2011 ARIAN US PSYD ANN L 354.0 Carpal Tunnel Syndrome 02/02/2011 ARIAN US PSYD ANN L 535.00 Acute Gastritis (without Hemorrhage) 02/02/2011 CATALINA MCKNIGHT APRN A 35 4.0 Carpal Tunnel Syndrome 02/02/2011 CATALINA MCKNIGHT APRN A 535.00 Acute Gastritis (without Hemorrhage) 02/02/2011 [...] ANN L 535.00 Acute Gastritis (without Hemorrhage) 02/12/2011 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 02/12/2011 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 02/12/2011 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 02/12/2011 BEVERLY TAO APRN 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 02/12/2011 ARIAN US PSYD ANN L 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 02/12/2011 ARIAN US PSYD ANN L 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 02/12/2011 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 DIS NOS 02/12/2011 ARIAN US PSYD ANN L 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 02/12/2011 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 02/12/2011 301.9 PD P ERS DIS NOS 02/12/2011 301.9 PD P ERS DIS NOS 02/12/2011 301.9 PD P ERS DIS NOS 02/12/2011 301.9 PD P ERS DIS NOS 02/12/2011 301.9 PD P ERS DIS NOS 02/12/2011 301.9 PD P ERS DIS NOS 02/12/2011 301.9 PD P ERS DIS NOS 02/12/2011 301.9 PD P ERS DIS NOS 02/12/2011 301.9 PD P ERS DIS NOS 02/12/2011 301.9 PD P ERS DIS NOS 02/12/2011 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 02/12/2011 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 02/12/2011 301.9 PD P ERS DIS NOS 02/12/2011 ARIAN US PSYD L 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 02/12/2011 ARIAN US PSYD L 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 02/12/2011 WILLARD DORUBAA K 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 02/12/2011 JERMAINE FERRER APRN 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 02/12/2011 ARIAN US PSYD ANN L 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 02/12/2011 JASMIN MCKNIGHT APRNIDI A 30 1.9 PD PERS DIS NOS 02/12/2011 LATONYA TAO APRNA S 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 02/12/2011 JERMAINE FERRER APRN 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 02/12/2011 ARIAN US PSYD ANN L 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 02/12/2011 HARLEEN LOU APRN T 30 1.9 PD PERS DIS NOS 02/12/2011 HARLEEN LOU APRN T 30 1.9 PD PERS DIS NOS 02/12/2011 ARIAN US PSYD L 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 02/12/2011 ARIAN US PSYD L 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 02/12/2011 LOUISE COBOS MD 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 02/12/2011 JERMAINE FERRRE APRN 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 02/12/2011 [...] L 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 02/12/2011 RUBA WILLARD DOA K 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 02/12/2011 LOUISE COBOS MD 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 02/12/2011 MCCLEEARY PSYD, DAISHA L 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 02/12/2011 AISLINN OCONNOR, BEVERLY S 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 02/12/2011 ARIAN US PSYD ANN L 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 02/12/2011 ARIAN US PSYD ANN L 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 02/12/2011 AISLINN OCONNOR, BEVERLY S 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 02/12/2011 ARIAN US PSYD ANN L 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 02/12/2011 NELSON CHURCH WORKER, JAVAD 301 .9 PD PERS DIS NOS 02/12/2011 AISLINN OCONNOR BEVERLY S 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 02/12/2011 NELSON CHURCH WORKER, JAVAD 301 .9 PD PERS DIS NOS 02/12/2011 ARIAN US PSYD ANN L 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 02/12/2011 ARIAN US PSYD ANN L 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 02/12/2011 ARIAN US PSYD ANN L 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 02/12/2011 AISLINN OCONNOR BEVERLY S 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 02/12/2011 ROXANNACARLOS EDUARDO OCONNOR CATALINA A 30 1.9 PD PERS DIS NOS 02/12/2011 NELSON CHURCH WORKER, JAVAD 301 .9 PD PERS DIS NOS 02/12/2011 ARIAN US PSYD ANN L 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 02/12/2011 ARIAN US PSYD ANN L 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 02/12/2011 AISLINN OCONNOR BEVERLY S 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 02/12/2011 ARIAN US PSYD ANN L 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 02/12/2011 ARIAN US PSYD ANN L 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 02/12/2011 ROXANNA OCONNOR CATALINA A 30 1.9 PD PERS DIS NOS 02/12/2011 ARIAN US PSYD ANN L 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 02/12/2011 ARIAN US PSYD ANN L 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 02/12/2011 MCCLEARIAN SORIA PSYD 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 02/17/2011 V04.81 FLU DX (3 YRS AND ABOVE, IM) 02/17/2011 V04.81 FLU DX (3 YRS AND ABOVE, IM) 02/17/2011 V04.81 FLU DX (3 YRS AND ABOVE, IM) 02/17/2011 AISLINN RUIZN, BEVERLY S V04.81 FLU DX (3 YRS AND ABOVE, IM) 02/17/2011 ARIAN US PSYD V04.81 FLU DX (3 YRS AND ABOVE, IM) 02/17/2011 ARIAN US PSYD V04.81 FLU DX (3 YRS AND ABOVE, IM) 02/17/2011 V04.81 FLU DX (3 YRS AND ABOVE, IM) 02/17/2011 ARIAN US PSYD V04.81 FLU DX (3 YRS AND ABOVE, [...] AND ABOVE, IM) 02/17/2011 ARIAN US PSYD V04.81 FLU DX (3 YRS AND ABOVE, IM) 02/17/2011 ARIAN US PSYD V04.81 FLU DX (3 YRS AND ABOVE, IM) 02/17/2011 SUDHEER MORRIS LUCIANO K V04.81 FLU DX (3 YRS AND ABOVE, IM) 02/17/2011 JERMAINE FERRER APRN V04.81 FLU DX (3 YRS AND ABOVE, IM) 02/17/2011 ARIAN US PSYD L V04.81 FLU DX (3 YRS AND ABOVE, IM) 02/17/2011 CATALINA MCKNIGHT APRN A V04.81 FLU DX (3 YRS AND ABOVE, IM) 02/17/2011 BEVERLY TAO APRN S V04.81 FLU DX (3 YRS AND ABOVE, IM) 02/17/2011 JERMAINE FERRER APRN V04.81 FLU DX (3 YRS AND ABOVE, IM) 02/17/2011 ARIAN US PSYD L V04.81 FLU DX (3 YRS AND ABOVE, IM) 02/17/2011 HARLEEN LOU APRN V04.81 FLU DX (3 YRS AND ABOVE, IM) 02/17/2011 HARLEEN LOU APRN V04.81 FLU DX (3 YRS AND ABOVE, IM) 02/17/2011 ARIAN US PSYD L V04.81 FLU DX (3 YRS AND ABOVE, IM) 02/17/2011 ARIAN US PSYD L V04.81 FLU DX (3 YRS AND ABOVE, IM) 02/17/2011 PAPITO GAYLE, LOUISE V04.8 1 FLU DX (3 YRS AND ABOVE, IM) [...] AND ABOVE, IM) 02/17/2011 LOUISE COBOS MD V04.8 1 FLU DX (3 YRS AND ABOVE, IM) [...] DX (3 YRS AND ABOVE, IM) 02/17/2011 JAVAD DAMON APRN V04 .81 FLU DX (3 YRS AND ABOVE, IM) 02/17/2011 BEVERLY TAO APRN S V04.81 FLU DX (3 YRS AND ABOVE, IM) 02/17/2011 NELSON OCONNOR JAVAD V04 .81 FLU DX (3 YRS AND ABOVE, IM) [...] (3 YRS AND ABOVE, IM) 02/17/2011 ROXANNA CHURCH WORKER, CATALINA A V04.81 FLU DX (3 YRS AND ABOVE, IM) 02/17/2011 JAVAD DAMON APRN V04 .81 FLU DX (3 YRS AND ABOVE, IM) [...] DX (3 YRS AND ABOVE, IM) 02/17/2011 ROXANNAKassi OCONNOR CATALINA A V04.81 FLU DX (3 YRS AND ABOVE, IM) 02/17/2011 ARIAN US PSYD L V04.81 FLU DX (3 YRS AND ABOVE, IM) 02/17/2011 ARIAN US PSYD L V04.81 FLU DX (3 YRS AND ABOVE, IM) 02/17/2011 ARIAN US PSYD L V04.81 FLU DX (3 YRS AND ABOVE, IM) 03/10/2011 681.02 PAR ONYCHIA LEFT RING FINGER 03/10/2011 681.02 PAR ONYCHIA LEFT RING FINGER 03/10/2011 681.02 PAR ONYCHIA LEFT RING FINGER 03/10/2011 BEVERLY TAO APRN S 681.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 LEFT RING FINGER 03/10/2011 ARIAN US PSYD L 681.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 LEFT RING FINGER 03/10/2011 ARIAN US PSYD L 681.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 LEFT RING FINGER 03/10/2011 681.02 PAR ONYCHIA LEFT RING FINGER 03/10/2011 ARIAN US PSYD L 681.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 LEFT RING FINGER 03/10/2011 681.02 PAR ONYCHIA LEFT RING FINGER 03/10/2011 681.02 PAR ONYCHIA LEFT RING FINGER 03/10/2011 681.02 PAR ONYCHIA LEFT RING FINGER 03/10/2011 681.02 PAR ONYCHIA LEFT RING FINGER 03/10/2011 681.02 PAR ONYCHIA LEFT RING FINGER 03/10/2011 681.02 PAR ONYCHIA LEFT RING FINGER 03/10/2011 681.02 PAR ONYCHIA LEFT RING FINGER 03/10/2011 681.02 PAR ONYCHIA LEFT RING FINGER 03/10/2011 681.02 PAR ONYCHIA LEFT RING FINGER 03/10/2011 681.02 PAR ONYCHIA LEFT RING FINGER 03/10/2011 681.02 PAR ONYCHIA LEFT RING FINGER 03/10/2011 681.02 PAR ONYCHIA LEFT RING FINGER 03/10/2011 681.02 PAR ONYCHIA LEFT RING FINGER 03/10/2011 681.02 PAR ONYCHIA LEFT RING FINGER 03/10/2011 ARIAN US PSYD L 681.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 LEFT RING FINGER 03/10/2011 ARIAN US PSYD L 681.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 LEFT RING FINGER 03/10/2011 LUCIANO WILLARD DO 681.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 LEFT RING FINGER 03/10/2011 JERMAINE FERRER APRN 681.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 LEFT RING FINGER 03/10/2011 ARIAN US PSYD L 681.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 LEFT RING FINGER 03/10/2011 CATALINA [...] L 681.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 LEFT RING FINGER 03/10/2011 MCCLEEARY PSYD, DAISHA L 681.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 LEFT RING FINGER 03/10/2011 LOUISE COBOS MD 681.0 2 PARONYCHIA LEFT RING FINGER 03/10/2011 JERMAINE FERRER [...] LEFT RING FINGER 03/10/2011 LOUISE COBOS MD 681.0 2 PARONYCHIA LEFT RING FINGER 03/10/2011 ARIAN US PSYD ANN L 681.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 LEFT RING FINGER 03/10/2011 BEVERLY TAO APRN S 681.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 LEFT RING FINGER 03/10/2011 ARIAN US PSYD ANN L 681.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 LEFT RING FINGER 03/10/2011 ARIAN US PSYD ANN L 681.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 LEFT RING FINGER 03/10/2011 LATONYA TAO APRNA S 681.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 LEFT RING FINGER 03/10/2011 ARIAN US PSYD ANN L 681.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 LEFT RING FINGER 03/10/2011 NELSON OCONNOR JAVAD 681 .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 LEFT RING FINGER 03/10/2011 LATONYA TAO APRNA S 681.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 LEFT RING FINGER 03/10/2011 NELSON OCONNOR JAVAD 681 .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 LEFT RING FINGER 03/10/2011 ARIAN US PSYD L 681.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 LEFT RING FINGER 03/10/2011 ARIAN US PSYD L 681.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 LEFT RING FINGER 03/10/2011 ARIAN US PSYD L 681.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 LEFT RING FINGER 03/10/2011 BEVERLY TAO APRN S 681.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 LEFT RING FINGER 03/10/2011 CATALINA MCKNIGHT APRN A 681.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 LEFT RING FINGER 03/10/2011 JAVAD DAMON APRN 681 .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 LEFT RING FINGER 03/10/2011 ARIAN US PSYD L 681.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 LEFT RING FINGER 03/10/2011 ARIAN US PSYD L 681.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 LEFT RING FINGER 03/10/2011 BEVERLY TAO APRN S 681.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 LEFT RING FINGER 03/10/2011 ARIAN US PSYD L 681.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 LEFT RING FINGER 03/10/2011 ARIAN US PSYD ANN L 681.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 LEFT RING FINGER 03/10/2011 CATALINA MCKNIGHT APRN A 681.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 LEFT RING FINGER 03/10/2011 ARIAN US PSYD L 681.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 LEFT RING FINGER 03/10/2011 ARIAN US PSYD L 681.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 LEFT RING FINGER 03/10/2011 ARIAN US PSYD L 681.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 LEFT RING FINGER 04/16/2011 Ot 789.06 ABD OMINAL PAIN, EPIGASTRIC 04/17/2011 535.50 GAS TRITIS UNSPEC 04/17/2011 535.50 GAS TRITIS UNSPEC 04/17/2011 535.50 GAS TRITIS UNSPEC 04/17/2011 BEVERLY TAO APRN S 535.50 GASTRITIS UNSPEC 04/17/2011 ARIAN US PSYD L 535.50 GASTRITIS UNSPEC 04/17/2011 ARIAN US PSYD L 535.50 GASTRITIS UNSPEC 04/17/2011 535.50 GAS TRITIS UNSPEC 04/17/2011 ARIAN US PSYD 535.50 GASTRITIS UNSPEC 04/17/2011 535.50 GAS TRITIS UNSPEC 04/17/2011 535.50 GAS TRITIS UNSPEC 04/17/2011 535.50 GAS TRITIS UNSPEC 04/17/2011 535.50 GAS TRITIS UNSPEC 04/17/2011 535.50 GAS TRITIS UNSPEC 04/17/2011 535.50 GAS TRITIS UNSPEC 04/17/2011 535.50 GAS TRITIS UNSPEC 04/17/2011 535.50 GAS TRITIS UNSPEC 04/17/2011 535.50 GAS TRITIS UNSPEC 04/17/2011 535.50 GAS TRITIS UNSPEC 04/17/2011 535.50 GAS TRITIS UNSPEC 04/17/2011 535.50 GAS TRITIS UNSPEC 04/17/2011 535.50 GAS TRITIS UNSPEC 04/17/2011 535.50 GAS TRITIS UNSPEC 04/17/2011 ARIAN US PSYD 535.50 GASTRITIS UNSPEC 04/17/2011 ARIAN US PSYD 535.50 GASTRITIS UNSPEC 04/17/2011 LUCIANO WILLARD DO 535.50 GASTRITIS UNSPEC 04/17/2011 JERMAINE FERRER APRN 535.50 GASTRITIS UNSPEC 04/17/2011 ARIAN US PSYD 535.50 GASTRITIS UNSPEC 04/17/2011 CATALINA MCKNIGHT APRN 535.50 GASTRITIS UNSPEC 04/17/2011 BEVERLY TAO APRN 535.50 GASTRITIS UNSPEC 04/17/2011 JERMAINE FERRER APRN 535.50 GASTRITIS UNSPEC 04/17/2011 ARIAN US PSYD 535.50 GASTRITIS UNSPEC 04/17/2011 HARLEEN LOU APRN 535.50 GASTRITIS UNSPEC 04/17/2011 HARLEEN LOU APRN 535.50 GASTRITIS UNSPEC 04/17/2011 ARIAN US PSYD 535.50 GASTRITIS UNSPEC 04/17/2011 ARIAN US PSYD 535.50 GASTRITIS UNSPEC 04/17/2011 LOUISE COBOS MD 535.5 0 GASTRITIS UNSPEC 04/17/2011 JERMAINE FERRER APRN 535.50 GASTRITIS UNSPEC 04/17/2011 ARIAN US PSYD 535.50 GASTRITIS UNSPEC 04/17/2011 ARIAN US PSYD L 535.50 GASTRITIS UNSPEC 04/17/2011 ARIAN US PSYD L 535.50 GASTRITIS UNSPEC 04/17/2011 ARIAN US PSYD L 535.50 GASTRITIS UNSPEC 04/17/2011 LATONYA TAO APRNA S 535.50 GASTRITIS UNSPEC 04/17/2011 ARIAN US PSYD L 535.50 GASTRITIS UNSPEC 04/17/2011 SUDHEER MORRIS LUCIANO Reji 535.50 GASTRITIS UNSPEC 04/17/2011 PAPITO GAYLE, LOUISE 535.5 0 GASTRITIS UNSPEC 04/17/2011 ARIAN US PSYD L 535.50 GASTRITIS UNSPEC 04/17/2011 BEVERLY TAO APRN S 535.50 GASTRITIS UNSPEC 04/17/2011 ARIAN US PSYD L 535.50 GASTRITIS UNSPEC 04/17/2011 ARIAN US PSYD L 535.50 GASTRITIS UNSPEC 04/17/2011 BEVERLY TAO APRN S 535.50 GASTRITIS UNSPEC 04/17/2011 ARIAN US PSYD L 535.50 GASTRITIS UNSPEC 04/17/2011 JAVAD DAMON APRN 535 .50 GASTRITIS UNSPEC 04/17/2011 BEVERLY TAO APRN S 535.50 GASTRITIS UNSPEC 04/17/2011 JAVAD DAMON APRN 535 .50 GASTRITIS UNSPEC 04/17/2011 ARIAN US PSYD L 535.50 GASTRITIS UNSPEC 04/17/2011 ARIAN US PSYD L 535.50 GASTRITIS UNSPEC 04/17/2011 ARIAN US PSYD L 535.50 GASTRITIS UNSPEC 04/17/2011 BEVERLY TAO APRN S 535.50 GASTRITIS UNSPEC 04/17/2011 ROXANNAKassi OCONNOR CATALINA A 535.50 GASTRITIS UNSPEC 04/17/2011 JAVAD DAMON APRN 535 .50 GASTRITIS UNSPEC 04/17/2011 ARIAN US PSYD L 535.50 GASTRITIS UNSPEC 04/17/2011 ARIAN US PSYD 535.50 GASTRITIS UNSPEC 04/17/2011 BEVERLY TAO APRN S 535.50 GASTRITIS UNSPEC 04/17/2011 ARIAN US PSYD L 535.50 GASTRITIS UNSPEC 04/17/2011 ARIAN US PSYD 535.50 GASTRITIS UNSPEC 04/17/2011 CATALINA MCKNIGHT APRN 535.50 GASTRITIS UNSPEC 04/17/2011 ARIAN US PSYD 535.50 GASTRITIS UNSPEC 04/17/2011 ARIAN US PSYD 535.50 GASTRITIS UNSPEC 04/17/2011 ARIAN US PSYD 535.50 GASTRITIS UNSPEC 05/29/2011 300.02 AN GEN [...] PSYD 300.02 AN GEN ANXIETY 05/29/2011 ARIAN SU PSYD 300.02 AN GEN ANXIETY 05/29/2011 LUCIANO WILLARD DO 300.02 AN GEN ANXIETY 05/29/2011 JERMAINE FERRER APRN 300.02 AN GEN ANXIETY 05/29/2011 ARIAN US PSYD 300.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 ANXIETY 05/29/2011 CATALINA MCKNIGHT APRN 300.02 AN GEN ANXIETY 05/29/2011 BEVERLY TAO APRN S 300.02 AN GEN ANXIETY 05/29/2011 JERMAINE FERRER APRN 300.02 AN GEN ANXIETY 05/29/2011 ARIAN US PSYD L 300.02 AN GEN ANXIETY 05/29/2011 HARLEEN LOU APRN T 300.02 AN GEN ANXIETY 05/29/2011 HARLEEN LOU APRN T 300.02 AN GEN ANXIETY 05/29/2011 ARIAN US PSYD L 300.02 AN GEN ANXIETY 05/29/2011 ARIAN US PSYD ANN L 300.02 AN GEN ANXIETY 05/29/2011 LOUISE COBOS MD 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 05/29/2011 JERMAINE FERRER APRN [...] PSYD L 300.02 AN GEN ANXIETY 05/29/2011 LUCIANO WILLARD DO 300.02 AN GEN ANXIETY 05/29/2011 LOUISE COBOS MD 300.0 2 AN GEN ANXIETY 05/29/2011 ARIAN US PSYD L 300.02 AN GEN ANXIETY 05/29/2011 BEVERLY TAO APRN S 300.02 AN GEN ANXIETY 05/29/2011 ARIAN US PSYD ANN L 300.02 AN GEN ANXIETY 05/29/2011 ARIAN US PSYD ANN L 300.02 AN GEN ANXIETY 05/29/2011 LATONYA TAO APRNA S 300.02 AN GEN ANXIETY 05/29/2011 ARIAN US PSYD ANN L 300.02 AN GEN ANXIETY 05/29/2011 JAVAD DAMON APRN 300 .02 AN GEN ANXIETY 05/29/2011 BEVERLY TAO APRN S 300.02 AN GEN ANXIETY 05/29/2011 MADAI DAMON APRNETTE 300 .02 AN GEN ANXIETY 05/29/2011 ARIAN US PSYD ANN L 300.02 AN GEN ANXIETY 05/29/2011 ARIAN US PSYD ANN L 300.02 AN GEN ANXIETY 05/29/2011 ARIAN US PSYD ANN L 300.02 AN GEN ANXIETY 05/29/2011 BEVERLY TAO APRN S 300.02 AN GEN ANXIETY 05/29/2011 ROXANNAKassi OCONNOR CATALINA A 300.02 AN GEN ANXIETY 05/29/2011 NELSON OCONNOR JAVAD 300 .02 AN GEN ANXIETY 05/29/2011 ARIAN US PSYD L 300.02 AN GEN ANXIETY 05/29/2011 ARIAN US PSYD L 300.02 AN GEN ANXIETY 05/29/2011 BEVERLY TAO APRN S 300.02 AN GEN ANXIETY 05/29/2011 ARIAN US PSYD L 300.02 AN GEN ANXIETY 05/29/2011 ARIAN US PSYD ANN L 300.02 AN GEN ANXIETY 05/29/2011 ROXANNAKassi OCONNOR CATALINA A 300.02 AN GEN ANXIETY 05/29/2011 ARIAN US PSYD ANN L 300.02 AN GEN ANXIETY 05/29/2011 ARIAN US PSYD ANN L 300.02 AN GEN ANXIETY 05/29/2011 ARIAN US PSYD ANN L 300.02 AN GEN ANXIETY 06/01/2011 787.01 JOSE MANUEL SEA WITH VOMITING 06/01/2011 789.07 ABD OMINAL PAIN GENERALIZED 06/01/2011 787.01 JOSE MANUEL SEA WITH VOMITING 06/01/2011 789.07 ABD OMINAL PAIN GENERALIZED 06/01/2011 787.01 JOSE MANUEL SEA WITH VOMITING 06/01/2011 789.07 ABD OMINAL PAIN GENERALIZED 06/01/2011 BEVERLY TAO APRN S 787.01 NAUSEA WITH VOMITING 06/01/2011 BEVERLY TAO APRN 789.07 ABDOMINAL PAIN GENERALIZED 06/01/2011 ARIAN US PSYD ANN L 787.01 NAUSEA WITH VOMITING 06/01/2011 ARIAN US PSYD ANN L 789.07 ABDOMINAL PAIN GENERALIZED 06/01/2011 ARIAN US PSYD ANN L 787.01 NAUSEA WITH VOMITING 06/01/2011 ARIAN US PSYD ANN L 789.07 ABDOMINAL PAIN GENERALIZED 06/01/2011 787.01 JOSE MANUEL SEA WITH VOMITING 06/01/2011 789.07 ABD OMINAL PAIN GENERALIZED 06/01/2011 ARIAN US PSYD ANN L 787.01 NAUSEA WITH VOMITING 06/01/2011 ARIAN US PSYD ANN L 789.07 ABDOMINAL PAIN GENERALIZED 06/01/2011 787.01 JOSE MANUEL SEA WITH VOMITING 06/01/2011 789.07 ABD OMINAL PAIN GENERALIZED 06/01/2011 787.01 JOSE MANUEL SEA WITH VOMITING 06/01/2011 789.07 ABD OMINAL PAIN GENERALIZED 06/01/2011 787.01 JOSE MANUEL SEA WITH VOMITING 06/01/2011 789.07 ABD OMINAL PAIN GENERALIZED 06/01/2011 787.01 JOSE MANUEL SEA WITH VOMITING 06/01/2011 789.07 ABD OMINAL PAIN GENERALIZED 06/01/2011 787.01 JOSE MANUEL SEA WITH VOMITING 06/01/2011 789.07 ABD OMINAL PAIN GENERALIZED 06/01/2011 787.01 JOSE MANUEL SEA WITH VOMITING 06/01/2011 789.07 ABD OMINAL PAIN GENERALIZED 06/01/2011 787.01 JOSE MANUEL SEA WITH VOMITING 06/01/2011 789.07 ABD OMINAL PAIN GENERALIZED 06/01/2011 787.01 JOSE MANUEL SEA WITH VOMITING 06/01/2011 789.07 ABD OMINAL PAIN GENERALIZED 06/01/2011 787.01 JOSE MANUEL SEA WITH VOMITING 06/01/2011 789.07 ABD OMINAL PAIN GENERALIZED 06/01/2011 787.01 JOSE MANUEL SEA WITH VOMITING 06/01/2011 789.07 ABD OMINAL PAIN GENERALIZED 06/01/2011 787.01 JOSE MANUEL SEA WITH VOMITING 06/01/2011 789.07 ABD OMINAL PAIN GENERALIZED 06/01/2011 787.01 JOSE MANUEL SEA WITH VOMITING 06/01/2011 789.07 ABD OMINAL PAIN GENERALIZED 06/01/2011 787.01 JOSE MANUEL SEA WITH VOMITING 06/01/2011 789.07 ABD OMINAL PAIN GENERALIZED 06/01/2011 787.01 JOSE MANUEL SEA WITH VOMITING 06/01/2011 789.07 ABD OMINAL PAIN GENERALIZED 06/01/2011 ARIAN US PSYD L 787.01 NAUSEA WITH VOMITING 06/01/2011 ARIAN US PSYD L 789.07 ABDOMINAL PAIN GENERALIZED 06/01/2011 ARIAN US PSYD 787.01 NAUSEA WITH VOMITING 06/01/2011 ARIAN US PSYD 789.07 ABDOMINAL PAIN GENERALIZED 06/01/2011 WILLARD DO, LUCIANO K 787.01 NAUSEA WITH VOMITING 06/01/2011 WILLARD DO, LUCIANO K 789.07 ABDOMINAL PAIN GENERALIZED 06/01/2011 JERMAINE FERRER APRN 787.01 NAUSEA WITH VOMITING 06/01/2011 JERMAINE FERRER APRN 789.07 ABDOMINAL PAIN GENERALIZED 06/01/2011 ARIAN US PSYD 787.01 NAUSEA WITH VOMITING 06/01/2011 ARIAN US PSYD 789.07 ABDOMINAL PAIN GENERALIZED 06/01/2011 CATALINA MCKNIGHT APRN A 787.01 NAUSEA WITH VOMITING 06/01/2011 JASMIN MCKNIGHT APRNIDI A 789.07 ABDOMINAL PAIN GENERALIZED 06/01/2011 BEVERLY TAO APRN S 787.01 NAUSEA WITH VOMITING 06/01/2011 BEVERLY TAO APRN S 789.07 ABDOMINAL PAIN GENERALIZED 06/01/2011 JERMAINE FERRER APRN 787.01 NAUSEA WITH VOMITING 06/01/2011 JERMAINE FERRER APRN 789.07 ABDOMINAL PAIN GENERALIZED 06/01/2011 ARIAN US PSYD 787.01 NAUSEA WITH VOMITING 06/01/2011 ARIAN US PSYD 789.07 ABDOMINAL PAIN GENERALIZED 06/01/2011 HARLEEN LOU APRN 787.01 NAUSEA WITH VOMITING 06/01/2011 HARLEEN LOU APRN 789.07 ABDOMINAL PAIN GENERALIZED 06/01/2011 HARLEEN LOU APRN 787.01 NAUSEA WITH VOMITING 06/01/2011 HARLEEN LOU APRN T 789.07 ABDOMINAL PAIN GENERALIZED 06/01/2011 ARIAN US PSYD 787.01 NAUSEA WITH VOMITING 06/01/2011 MCCLEEARY PSYD, DAISHA L 789.07 ABDOMINAL PAIN GENERALIZED 06/01/2011 ARIAN US PSYD ANN L 787.01 NAUSEA WITH VOMITING 06/01/2011 ARIAN US PSYD ANN L 789.07 ABDOMINAL PAIN GENERALIZED 06/01/2011 LOUISE COBOS MD 787.0 1 NAUSEA WITH VOMITING 06/01/2011 LOUISE COBOS MD 789.0 7 ABDOMINAL PAIN GENERALIZED 06/01/2011 JERMAINE FERRER APRN [...] S 787.01 NAUSEA WITH VOMITING 06/01/2011 AISLINN OCONNOR BEVERLY S 789.07 ABDOMINAL PAIN GENERALIZED 06/01/2011 ARIAN US PSYD ANN L 787.01 NAUSEA WITH VOMITING 06/01/2011 ARIAN US PSYD ANN L 789.07 ABDOMINAL PAIN GENERALIZED 06/01/2011 WILLARD LUCIANO MORRIS K 787.01 NAUSEA WITH VOMITING 06/01/2011 WILLARD LUCIANO MORRIS K 789.07 ABDOMINAL PAIN GENERALIZED 06/01/2011 LOUISE COBOS MD 787.0 1 NAUSEA WITH VOMITING 06/01/2011 LOUISE COBOS MD 789.0 7 ABDOMINAL PAIN GENERALIZED 06/01/2011 ARIAN US PSYD ANN L 787.01 NAUSEA WITH VOMITING 06/01/2011 ARIAN US PSYD ANN L 789.07 ABDOMINAL PAIN GENERALIZED 06/01/2011 BEVERLY TAO APRN S 787.01 NAUSEA WITH VOMITING 06/01/2011 BEVERLY TAO APRN S 789.07 ABDOMINAL PAIN GENERALIZED 06/01/2011 ARIAN US PSYD ANN L 787.01 NAUSEA WITH VOMITING 06/01/2011 ARIAN US PSYD ANN L 789.07 ABDOMINAL PAIN GENERALIZED 06/01/2011 ARIAN US PSYD ANN L 787.01 NAUSEA WITH VOMITING 06/01/2011 ARIAN US PSYD ANN L 789.07 ABDOMINAL PAIN GENERALIZED 06/01/2011 BEVERLY TAO APRN S 787.01 NAUSEA WITH VOMITING 06/01/2011 BEVERLY TAO APRN S 789.07 ABDOMINAL PAIN GENERALIZED 06/01/2011 ARIAN US PSYD ANN L 787.01 NAUSEA WITH VOMITING 06/01/2011 ARIAN US PSYD ANN L 789.07 ABDOMINAL PAIN GENERALIZED 06/01/2011 NELSON CHURCH WORKER, JAVAD 787 .01 NAUSEA WITH VOMITING 06/01/2011 NELSON CHURCH WORKER, JAVAD 789 .07 ABDOMINAL PAIN GENERALIZED 06/01/2011 BEVERLY TAO APRN S 787.01 NAUSEA WITH VOMITING 06/01/2011 BEVERLY TAO APRN S 789.07 ABDOMINAL PAIN GENERALIZED 06/01/2011 NELSON CHURCH WORKER, JAVAD 787 .01 NAUSEA WITH VOMITING 06/01/2011 NELSON ANASTASIA JAVAD 789 .07 ABDOMINAL PAIN GENERALIZED 06/01/2011 ARIAN US PSYD [...] ANN L 789.07 ABDOMINAL PAIN GENERALIZED 06/01/2011 BEVERLY TAO APRN S 787.01 NAUSEA WITH VOMITING 06/01/2011 BEVERLY TAO APRN S 789.07 ABDOMINAL PAIN GENERALIZED 06/01/2011 ROXANNA RUIZN, CATALINA A 787.01 NAUSEA WITH VOMITING 06/01/2011 ROXANNA RUIZN, CATALINA A 789.07 ABDOMINAL PAIN GENERALIZED 06/01/2011 NELSON CHURCH WORKER, JAVAD 787 .01 NAUSEA WITH VOMITING 06/01/2011 NELSON CHURCH WORKER, JAVAD 789 .07 ABDOMINAL PAIN GENERALIZED 06/01/2011 ARIAN US PSYD ANN L 787.01 NAUSEA WITH VOMITING 06/01/2011 ARIAN US PSYD ANN L 789.07 ABDOMINAL PAIN GENERALIZED 06/01/2011 ARIAN US PSYD ANN L 787.01 NAUSEA WITH VOMITING 06/01/2011 ARIAN US PSYD ANN L 789.07 ABDOMINAL PAIN GENERALIZED 06/01/2011 BEVERLY TAO APRN S 787.01 NAUSEA WITH VOMITING 06/01/2011 BEVERLY TAO APRN S 789.07 ABDOMINAL PAIN GENERALIZED 06/01/2011 ARIAN US PSYD ANN L 787.01 NAUSEA WITH VOMITING 06/01/2011 ARIAN US PSYD ANN L 789.07 ABDOMINAL PAIN GENERALIZED 06/01/2011 ARIAN US PSYD ANN L 787.01 NAUSEA WITH VOMITING 06/01/2011 ARIAN US PSYD ANN L 789.07 ABDOMINAL PAIN GENERALIZED 06/01/2011 ROXANNA OCONNOR, CATALINA A 787.01 NAUSEA WITH VOMITING 06/01/2011 ROXANNA OCONNOR, CATALINA A 789.07 ABDOMINAL PAIN GENERALIZED 06/01/2011 [...] L 789.07 ABDOMINAL PAIN GENERALIZED 06/17/2011 787.91 CELESTINO RRHEA 06/17/2011 787.91 CELESTINO RRHEA 06/17/2011 787.91 CELESTINO RRHEA 06/17/2011 BEVERLY TAO APRN 787.91 DIARRHEA 06/17/2011 ARIAN US PSYD ANN L 787.91 DIARRHEA 06/17/2011 ARIAN US PSYD ANN L 787.91 DIARRHEA 06/17/2011 787.91 CELESTINO RRHEA 06/17/2011 ARIAN US PSYD ANN L 787.91 DIARRHEA 06/17/2011 787.91 CELESTINO RRHEA 06/17/2011 787.91 CELESTINO RRHEA 06/17/2011 787.91 CELESTINO RRHEA 06/17/2011 787.91 CELESTINO RRHEA 06/17/2011 787.91 CELESTINO RRHEA 06/17/2011 787.91 CELESTINO RRHEA 06/17/2011 787.91 CELESTINO RRHEA 06/17/2011 787.91 CELESTINO RRHEA 06/17/2011 787.91 CELESTINO RRHEA 06/17/2011 787.91 CELESTINO RRHEA 06/17/2011 787.91 CELESTINO RRHEA 06/17/2011 787.91 CELESTINO RRHEA 06/17/2011 787.91 CELESTINO RRHEA 06/17/2011 787.91 CELESTINO RRHEA 06/17/2011 ARIAN US PSYD L 787.91 DIARRHEA 06/17/2011 ARIAN US PSYD L 787.91 DIARRHEA 06/17/2011 LUCIANO WILLARD DO 787.91 DIARRHEA 06/17/2011 JERMAINE FERRER APRN 787.91 DIARRHEA 06/17/2011 ARIAN US PSYD ANN L 787.91 DIARRHEA 06/17/2011 CATALINA MCKNIGHT APRN 787.91 DIARRHEA 06/17/2011 BEVERLY TAO APRN 787.91 DIARRHEA 06/17/2011 JERMAINE FERRER APRN 787.91 DIARRHEA 06/17/2011 ARIAN US PSYD L 787.91 DIARRHEA 06/17/2011 HARLEEN LOU APRN 787.91 DIARRHEA 06/17/2011 HARLEEN LOU APRN 787.91 DIARRHEA 06/17/2011 ARIAN US PSYD ANN L 787.91 DIARRHEA 06/17/2011 ARIAN US PSYD ANN L 787.91 DIARRHEA 06/17/2011 LOUISE COBOS MD 787.9 1 DIARRHEA 06/17/2011 GLORIA FERRER APRNZANAY Morillo 787.91 DIARRHEA 06/17/2011 ARIAN US PSYD ANN L 787.91 DIARRHEA 06/17/2011 ARIAN US PSYD ANN L 787.91 DIARRHEA 06/17/2011 ARIAN US PSYD ANN L 787.91 DIARRHEA 06/17/2011 ARIAN US PSYD ANN L 787.91 DIARRHEA 06/17/2011 AISLINN OCONNOR BEVERLY S 787.91 DIARRHEA 06/17/2011 ARIAN US PSYD ANN L 787.91 DIARRHEA 06/17/2011 LUCIANO WILLARD DO 787.91 DIARRHEA 06/17/2011 LOUISE COBOS MD 787.9 1 DIARRHEA 06/17/2011 ARIAN US PSYD ANN L 787.91 DIARRHEA 06/17/2011 AISLINN OCONNOR BEVERLY S 787.91 DIARRHEA 06/17/2011 ARIAN US PSYD ANN L 787.91 DIARRHEA 06/17/2011 ARIAN US PSYD ANN L 787.91 DIARRHEA 06/17/2011 AISLINN OCONNOR, BEVERLY S 787.91 DIARRHEA 06/17/2011 ARIAN SU PSYD ANN L 787.91 DIARRHEA 06/17/2011 NELSON CHURCH WORKER, JAVAD 787 .91 DIARRHEA 06/17/2011 AISLINN OCONNOR, BEVERLY S 787.91 DIARRHEA 06/17/2011 NELSON CHURCH WORKER, JAVAD 787 .91 DIARRHEA 06/17/2011 ARIAN US PSYD ANN L 787.91 DIARRHEA 06/17/2011 ARIAN US PSYD ANN L 787.91 DIARRHEA 06/17/2011 ARIAN US PSYD ANN L 787.91 DIARRHEA 06/17/2011 AISLINN OCONNOR BEVERLY S 787.91 DIARRHEA 06/17/2011 JASMIN MCKNIGHT APRNIDI A 787.91 DIARRHEA 06/17/2011 NELSONVANDANA RUIZNMADAIJAVAD 787 .91 DIARRHEA 06/17/2011 ARIAN US PSYD ANN L 787.91 DIARRHEA 06/17/2011 ARIAN US PSYD ANN L 787.91 DIARRHEA 06/17/2011 AISLINN ANASTASIA BEVERLY S 787.91 DIARRHEA 06/17/2011 ARIAN US PSYD ANN L 787.91 DIARRHEA 06/17/2011 ARIAN US PSYD ANN L 787.91 DIARRHEA 06/17/2011 JASMIN MCKNIGHT APRNIDI A 787.91 DIARRHEA 06/17/2011 ARIAN US PSYD ANN L 787.91 DIARRHEA 06/17/2011 ARIAN US PSYD ANN L 787.91 DIARRHEA 06/17/2011 ARIAN US PSYD ANN L 787.91 DIARRHEA 09/07/2011 787.1 HEAR TBURN 09/07/2011 787.1 HEAR TBURN 09/07/2011 787.1 HEAR TBURN 09/07/2011 BEVERLY TAO APRN S 787.1 HEARTBURN 09/07/2011 ARIAN US PSYD ANN L 787.1 HEARTBURN 09/07/2011 ARIAN US PSYD ANN L 787.1 HEARTBURN 09/07/2011 787.1 HEAR TBURN 09/07/2011 ARIAN US PSYD ANN L 787.1 HEARTBURN 09/07/2011 787.1 HEAR TBURN 09/07/2011 787.1 HEAR TBURN 09/07/2011 787.1 HEAR TBURN 09/07/2011 787.1 HEAR TBURN 09/07/2011 787.1 HEAR TBURN 09/07/2011 787.1 HEAR TBURN 09/07/2011 787.1 HEAR TBURN 09/07/2011 787.1 HEAR TBURN 09/07/2011 787.1 HEAR TBURN 09/07/2011 787.1 HEAR TBURN 09/07/2011 787.1 HEAR TBURN 09/07/2011 787.1 HEAR TBURN 09/07/2011 787.1 HEAR TBURN 09/07/2011 787.1 HEAR TBURN 09/07/2011 ARIAN US PSYD L 787.1 HEARTBURN 09/07/2011 ARIAN US PSYD L 787.1 HEARTBURN 09/07/2011 LUCIANO WILLARD DO 787.1 HEARTBURN 09/07/2011 JERMAINE FERRER APRN 787.1 HEARTBURN 09/07/2011 ARIAN US PSYD ANN L 787.1 HEARTBURN 09/07/2011 CATALINA MCKNIGHT APRN A 78 7.1 HEARTBURN 09/07/2011 BEVERLY TAO APRN S 787.1 HEARTBURN 09/07/2011 JERMAINE FERRER APRN 787.1 HEARTBURN 09/07/2011 ARIAN US PSYD L 787.1 HEARTBURN 09/07/2011 HARLEEN LOU APRN T 78 7.1 HEARTBURN 09/07/2011 HARLEEN LOU APRN T 78 7.1 HEARTBURN 09/07/2011 ARIAN US PSYD L 787.1 HEARTBURN 09/07/2011 ARIAN US PSYD L 787.1 HEARTBURN 09/07/2011 LOUISE COBOS MD 787.1 HEARTBURN 09/07/2011 JERMAINE FERRER APRN 787.1 HEARTBURN 09/07/2011 ARIAN US PSYD L [...] PSYD ANN L 787.1 HEARTBURN 09/07/2011 AISLINN CHURCH WORKER, BEVERLY S 787.1 HEARTBURN 09/07/2011 ARIAN US PSYD ANN L 787.1 HEARTBURN 09/07/2011 ARIAN US PSYD ANN L 787.1 HEARTBURN 09/07/2011 AISLINN OCONNOR BEVERLY S 787.1 HEARTBURN 09/07/2011 ARIAN US PSYD ANN L 787.1 HEARTBURN 09/07/2011 NELSONVANDANA RUIZKassi JAVAD 787 .1 HEARTBURN 09/07/2011 AISLINN CHURCH WORKER, BEVERLY S 787.1 HEARTBURN 09/07/2011 NELSON ANASTASIA JAVAD 787 .1 HEARTBURN 09/07/2011 ARIAN US PSYD ANN L 787.1 HEARTBURN 09/07/2011 ARIAN US PSYD ANN L 787.1 HEARTBURN 09/07/2011 ARIAN US PSYD ANN L 787.1 HEARTBURN 09/07/2011 AISLINN CHURCH WORKER, BEVERLY S 787.1 HEARTBURN 09/07/2011 ROXANNA CHURCH WORKER, CATALINA A 78 7.1 HEARTBURN 09/07/2011 NELSON CHURCH WORKER, JAVAD 787 .1 HEARTBURN 09/07/2011 ARIAN US PSYD ANN L 787.1 HEARTBURN 09/07/2011 ARIAN US PSYD ANN L 787.1 HEARTBURN 09/07/2011 AISLINN CHURCH WORKERCLAUDEBEVERLY S 787.1 HEARTBURN 09/07/2011 ARIAN US PSYD ANN L 787.1 HEARTBURN 09/07/2011 ARIAN US PSYD ANN L 787.1 HEARTBURN 09/07/2011 ROXANNA APRN, CATALINA A 78 7.1 HEARTBURN 09/07/2011 ARIAN US PSYD ANN L 787.1 HEARTBURN 09/07/2011 ARIAN US PSYD ANN L 787.1 HEARTBURN 09/07/2011 ARIAN US PSYD ANN L 787.1 HEARTBURN 01/01/2012 296.60 MO BIPOLAR I MIXED UNSPECIFIED 01/01/2012 296.60 MO BIPOLAR I MIXED UNSPECIFIED 01/01/2012 296.60 MO BIPOLAR I MIXED UNSPECIFIED 01/01/2012 BEVERLY TAO APRN S 296.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 I MIXED UNSPECIFIED 01/01/2012 ARIAN US PSYD 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 UNSPECIFIED 01/01/2012 ARIAN US PSYD 296.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 UNSPECIFIED 01/01/2012 [...] I MIXED UNSPECIFIED 01/01/2012 ARIAN US PSYD 296.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 01/01/2012 ARIAN US PSYD 296.60 MO BIPOLAR I MIXED UNSPECIFIED 01/01/2012 LUCIANO WILLARD DO 296.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 I MIXED UNSPECIFIED 01/01/2012 JERMAINE FERRER APRN 296.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 01/01/2012 ARIAN US PSYD 296.60 MO BIPOLAR I MIXED UNSPECIFIED 01/01/2012 CATALINA MCKNIGHT APRN 296.60 MO BIPOLAR I MIXED UNSPECIFIED [...] 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 I MIXED UNSPECIFIED 01/01/2012 LOUISE COBOS MD 296.6 0 MO BIPOLAR I MIXED UNSPECIFIED 01/01/2012 JERMAINE [...] 296.60 MO BIPOLAR I MIXED UNSPECIFIED 01/01/2012 CLAUDE TAO APRNNDA S 296.60 MO BIPOLAR I MIXED UNSPECIFIED 01/01/2012 ARIAN US PSYD ANN L 296.60 MO BIPOLAR I MIXED UNSPECIFIED 01/01/2012 LUCIANO WILLARD DO 296.60 MO BIPOLAR I MIXED UNSPECIFIED 01/01/2012 LOUISE COBOS MD 296.6 0 MO BIPOLAR I MIXED UNSPECIFIED 01/01/2012 ARIAN [...] MO BIPOLAR I MIXED UNSPECIFIED 01/01/2012 NELSON CHURCH WORKER, JAVAD 296 .60 MO BIPOLAR I MIXED UNSPECIFIED 01/01/2012 LATONYA TAO APRNA S 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 01/01/2012 JAVAD DAMON APRN 296 .60 MO BIPOLAR I MIXED UNSPECIFIED 01/01/2012 ARIAN US PSYD ANN L 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 01/01/2012 ARIAN US PSYD ANN L 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 01/01/2012 ARIAN US PSYD ANN L 296.60 MO BIPOLAR I MIXED UNSPECIFIED 01/01/2012 BEVERLY TAO APRN S 296.60 MO BIPOLAR I MIXED UNSPECIFIED 01/01/2012 ROXANNA OCONNOR CATALINA A 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 01/01/2012 JAVAD DAMON APRN 296 .60 MO BIPOLAR I MIXED UNSPECIFIED 01/01/2012 ARIAN [...] MO BIPOLAR I MIXED UNSPECIFIED 01/01/2012 ROXANNA OCONNOR CATALINA A 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 01/01/2012 ARIAN US PSYD ANN L 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 01/01/2012 ARIAN US PSYD ANN L 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 01/01/2012 ARIAN US PSYD ANN L 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 01/07/2012 356.9 NEUR OPATHY 01/07/2012 593.9 SHELDON L INSUFFICIENCY 01/07/2012 356.9 NEUR OPATHY 01/07/2012 593.9 SHELODN L INSUFFICIENCY 01/07/2012 356.9 NEUR OPATHY 01/07/2012 593.9 SHELDON L INSUFFICIENCY 01/07/2012 BEVERLY TAO APRN S 356.9 NEUROPATHY 01/07/2012 BEVERLY TAO APRN 593.9 RENAL INSUFFICIENCY 01/07/2012 ARIAN US PSYD ANN L 356.9 NEUROPATHY 01/07/2012 ARIAN US PSYD ANN L 593.9 RENAL INSUFFICIENCY 01/07/2012 ARIAN US PSYD ANN L 356.9 NEUROPATHY 01/07/2012 ARIAN US PSYD ANN L 593.9 RENAL INSUFFICIENCY 01/07/2012 356.9 NEUR OPATHY 01/07/2012 593.9 SHELDON L INSUFFICIENCY 01/07/2012 ARIAN US PSYD ANN L 356.9 NEUROPATHY 01/07/2012 ARIAN US PSYD ANN L 593.9 RENAL INSUFFICIENCY 01/07/2012 356.9 NEUR OPATHY 01/07/2012 593.9 SHELDON L INSUFFICIENCY 01/07/2012 356.9 NEUR OPATHY 01/07/2012 593.9 SHELDON L INSUFFICIENCY 01/07/2012 356.9 NEUR OPATHY 01/07/2012 593.9 SHELDON L INSUFFICIENCY 01/07/2012 356.9 NEUR OPATHY 01/07/2012 593.9 SHELDON L INSUFFICIENCY 01/07/2012 356.9 NEUR OPATHY 01/07/2012 593.9 SHELDON L INSUFFICIENCY 01/07/2012 356.9 NEUR OPATHY 01/07/2012 593.9 SHELDON L INSUFFICIENCY 01/07/2012 356.9 NEUR OPATHY 01/07/2012 593.9 SHELDON L INSUFFICIENCY 01/07/2012 356.9 NEUR OPATHY 01/07/2012 593.9 SHELDON L INSUFFICIENCY 01/07/2012 356.9 NEUR OPATHY 01/07/2012 593.9 SHELDON L INSUFFICIENCY 01/07/2012 356.9 NEUR OPATHY 01/07/2012 593.9 SHELDON L INSUFFICIENCY 01/07/2012 356.9 NEUR OPATHY 01/07/2012 593.9 SHELDON L INSUFFICIENCY 01/07/2012 356.9 NEUR OPATHY 01/07/2012 593.9 SHELDON L INSUFFICIENCY 01/07/2012 356.9 NEUR OPATHY 01/07/2012 593.9 SHELDON L INSUFFICIENCY 01/07/2012 356.9 NEUR OPATHY 01/07/2012 593.9 SHELDON L INSUFFICIENCY 01/07/2012 ARIAN US PSYD ANN L [...] PSYD ANN L 593.9 RENAL INSUFFICIENCY 01/07/2012 ROXANNACARLOS EDUARDO OCONNOR CATALINA A 35 6.9 NEUROPATHY 01/07/2012 ROXANNACARLOS EDUARDO OCONNOR CATALINA A 59 3.9 RENAL INSUFFICIENCY 01/07/2012 AISLINN OCONNOR BEVERLY S 356.9 NEUROPATHY 01/07/2012 AISLINN OCONNOR, BEVERLY S 593.9 RENAL INSUFFICIENCY 01/07/2012 SADA FERRER APRNTH D 356.9 NEUROPATHY 01/07/2012 SADA FERRER APRNTH D 593.9 RENAL INSUFFICIENCY 01/07/2012 ARIAN US PSYD ANN L 356.9 NEUROPATHY 01/07/2012 ARIAN US PSYD ANN L 593.9 RENAL INSUFFICIENCY 01/07/2012 DASHA OCONNOR, HARLEEN T 35 6.9 NEUROPATHY 01/07/2012 DASHA CHURCH WORKER, HARLEEN T 59 3.9 RENAL INSUFFICIENCY 01/07/2012 DASHA CHURCH WORKER, HARLEEN T 35 6.9 NEUROPATHY 01/07/2012 DASHA ANASTASIA, HARLEEN T 59 3.9 RENAL INSUFFICIENCY 01/07/2012 ARIAN US PSYD ANN [...] PSYD ANN L 593.9 RENAL INSUFFICIENCY 01/07/2012 MCCLEEARY PSYD, DAISHA L 356.9 NEUROPATHY 01/07/2012 ARIAN US PSYD ANN L 593.9 RENAL INSUFFICIENCY 01/07/2012 AISLINN CHURCH WORKER, BEVERLY S 356.9 NEUROPATHY 01/07/2012 AISLINN CHURCH WORKER, BEVERLY S 593.9 RENAL INSUFFICIENCY 01/07/2012 ARIAN US PSYD ANN L 356.9 NEUROPATHY 01/07/2012 ARIAN US PSYD ANN L 593.9 RENAL INSUFFICIENCY 01/07/2012 NELSON CHURCH WORKER, JAVAD 356 .9 NEUROPATHY 01/07/2012 NELSON CHURCH WORKER, JAVAD 593 .9 RENAL INSUFFICIENCY 01/07/2012 AISLINNCHICHI OCONNOR, BEVERLY S 356.9 NEUROPATHY 01/07/2012 AISLINN CHURCH WORKER, BEVERLY S 593.9 RENAL INSUFFICIENCY 01/07/2012 NELSON CHURCH WORKER, JAVAD 356 .9 NEUROPATHY 01/07/2012 NELSON CHURCH WORKER, JAVAD 593 .9 RENAL INSUFFICIENCY 01/07/2012 ARIAN US PSYD ANN [...] OCONNOR, BEVERLY S 593.9 RENAL INSUFFICIENCY 01/07/2012 ROXANNA CHURCH WORKER, CATALINA A 35 6.9 NEUROPATHY 01/07/2012 ROXANNA CHURCH WORKER, CATALINA A 59 3.9 RENAL INSUFFICIENCY 01/07/2012 NELSON CHURCH WORKER, JAVAD 356 .9 NEUROPATHY 01/07/2012 NELSON CHURCH WORKER, JAVAD 593 .9 RENAL INSUFFICIENCY 01/07/2012 ARIAN US PSYD ANN L 356.9 NEUROPATHY 01/07/2012 ARIAN US PSYD ANN L 593.9 RENAL INSUFFICIENCY 01/07/2012 ARIAN US PSYD ANN L 356.9 NEUROPATHY 01/07/2012 ARIAN US PSYD ANN L 593.9 RENAL INSUFFICIENCY 01/07/2012 BEVERLY TAO APRN S 356.9 NEUROPATHY 01/07/2012 BEVERLY TAO APRN S 593.9 RENAL INSUFFICIENCY 01/07/2012 ARIAN US PSYD ANN L 356.9 NEUROPATHY 01/07/2012 ARIAN US PSYD ANN L 593.9 RENAL INSUFFICIENCY 01/07/2012 ARIAN US PSYD ANN L 356.9 NEUROPATHY 01/07/2012 ARIAN US PSYD ANN L 593.9 RENAL INSUFFICIENCY 01/07/2012 ROXANNA APRN, CATALINA A 35 6.9 NEUROPATHY 01/07/2012 ROXANNA APRN, CATALINA A 59 3.9 RENAL INSUFFICIENCY 01/07/2012 ARIAN US PSYD ANN L 356.9 NEUROPATHY 01/07/2012 ARIAN US PSYD ANN L 593.9 RENAL INSUFFICIENCY 01/07/2012 ARIAN US PSYD ANN L 356.9 NEUROPATHY 01/07/2012 ARIAN US PSYD ANN L 593.9 RENAL INSUFFICIENCY 01/07/2012 ARIAN US PSYD ANN L 356.9 NEUROPATHY 01/07/2012 ARIAN US PSYD ANN L 593.9 RENAL INSUFFICIENCY 01/25/2012 Ot 724.2 LUMBAGO 01/25/2012 Ot 724.3 SCIA SRUTHI 01/29/2012 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 01/29/2012 724.3 SCIATICA 01/29/2012 847.9 SPRA IN OF UNSPECIFIED SITE OF BACK 01/29/2012 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 01/29/2012 724.3 SCIATICA 01/29/2012 847.9 SPRA IN OF UNSPECIFIED SITE OF BACK 01/29/2012 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 01/29/2012 724.3 SCIATICA 01/29/2012 847.9 SPRA IN OF UNSPECIFIED SITE OF BACK 01/29/2012 BEVERLY TAO APRN S 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 01/29/2012 AISLINN OCONNOR, BEVERLY S 724.3 SCIATICA 01/29/2012 AISLINN OCONNOR, [...] OF UNSPECIFIED SITE OF BACK 01/29/2012 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 01/29/2012 724.3 SCIATICA 01/29/2012 847.9 SPRA IN OF UNSPECIFIED SITE OF BACK 01/29/2012 ARIAN US PSYD ANN L 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 01/29/2012 ARIAN US PSYD ANN L 724.3 SCIATICA 01/29/2012 ARIAN US PSYD ANN L 847.9 SPRAIN OF UNSPECIFIED SITE OF BACK 01/29/2012 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 01/29/2012 724.3 SCIATICA 01/29/2012 847.9 SPRA IN OF UNSPECIFIED SITE OF BACK 01/29/2012 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 01/29/2012 724.3 SCIATICA 01/29/2012 847.9 SPRA IN OF UNSPECIFIED SITE OF BACK 01/29/2012 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 01/29/2012 724.3 SCIATICA 01/29/2012 847.9 SPRA IN OF UNSPECIFIED SITE OF BACK 01/29/2012 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 01/29/2012 724.3 SCIATICA 01/29/2012 847.9 SPRA IN OF UNSPECIFIED SITE OF BACK 01/29/2012 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 01/29/2012 724.3 SCIATICA 01/29/2012 847.9 SPRA IN OF UNSPECIFIED SITE OF BACK 01/29/2012 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 01/29/2012 724.3 SCIATICA 01/29/2012 847.9 SPRA IN OF UNSPECIFIED SITE OF BACK 01/29/2012 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 01/29/2012 724.3 SCIATICA 01/29/2012 847.9 SPRA IN OF UNSPECIFIED SITE OF BACK 01/29/2012 720.2 SACR OILIITIS NOT ELSEWHERE CLASSIFIED 01/29/2012 724.3 SCIATICA 01/29/2012 847.9 SPRA IN OF UNSPECIFIED SITE OF BACK 01/29/2012 720.2 SACR OILIITIS NOT ELSEWHERE CLASSIFIED 01/29/2012 724.3 SCIATICA 01/29/2012 847.9 SPRA IN OF UNSPECIFIED SITE OF BACK 01/29/2012 720.2 SACR OILIITIS NOT ELSEWHERE CLASSIFIED 01/29/2012 724.3 SCIATICA 01/29/2012 847.9 SPRA IN OF UNSPECIFIED SITE OF BACK 01/29/2012 720.2 SACR OILIITIS NOT ELSEWHERE CLASSIFIED 01/29/2012 724.3 SCIATICA 01/29/2012 847.9 SPRA IN OF UNSPECIFIED SITE OF BACK 01/29/2012 720.2 SACR OILIITIS NOT ELSEWHERE CLASSIFIED 01/29/2012 724.3 SCIATICA 01/29/2012 847.9 SPRA IN OF UNSPECIFIED SITE OF BACK 01/29/2012 720.2 SACR OILIITIS NOT ELSEWHERE CLASSIFIED 01/29/2012 724.3 SCIATICA 01/29/2012 847.9 SPRA IN OF UNSPECIFIED SITE OF BACK 01/29/2012 720.2 SACR OILIITIS NOT ELSEWHERE CLASSIFIED 01/29/2012 724.3 SCIATICA 01/29/2012 847.9 SPRA IN OF UNSPECIFIED SITE OF BACK 01/29/2012 ARIAN US PSYD ANN L 720.2 SACROILIITIS NOT ELSEWHERE CLASSIFIED 01/29/2012 ARIAN US PSYD ANN L 724.3 SCIATICA 01/29/2012 ARIAN US PSYD ANN L 847.9 SPRAIN OF UNSPECIFIED SITE OF BACK 01/29/2012 ARIAN US PSYD L 720.2 SACROILIITIS NOT ELSEWHERE CLASSIFIED 01/29/2012 [...] SITE OF BACK 01/29/2012 ARIAN US PSYD L 720.2 SACROILIITIS NOT ELSEWHERE CLASSIFIED 01/29/2012 ARIAN US PSYD ANN L 724.3 SCIATICA 01/29/2012 ARIAN US PSYD ANN L 847.9 SPRAIN OF UNSPECIFIED SITE OF BACK 01/29/2012 ROXANNA CHURCH WORKER, CATALINA A 72 0.2 SACROILIITIS NOT ELSEWHERE CLASSIFIED 01/29/2012 ROXANNA CHURCH WORKER, CATALINA A 72 4.3 SCIATICA 01/29/2012 ROXANNA CHURCH WORKER, CAT[employer]INA A 84 7.9 SPRAIN OF UNSPECIFIED SITE OF BACK 01/29/2012 AISLINN CHURCH WORKER, BEVERLY S 720.2 SACROILIITIS NOT ELSEWHERE CLASSIFIED 01/29/2012 AISLINN CHURCH WORKER, BEVERLY S 724.3 SCIATICA 01/29/2012 AISLINN CHURCH WORKER, BEVERLY S 847.9 SPRAIN OF UNSPECIFIED SITE OF BACK 01/29/2012 CARISSA CHURCH WORKERSADA [employer] D 720.2 SACROILIITIS NOT ELSEWHERE CLASSIFIED 01/29/2012 JERMAINE FERRER APRN D 724.3 SCIATICA 01/29/2012 CARISSA CHURCH WORKERJERMAINE [employer] D 847.9 SPRAIN OF UNSPECIFIED SITE OF BACK 01/29/2012 ARIAN US PSYD ANN L 720.2 SACROILIITIS NOT ELSEWHERE CLASSIFIED 01/29/2012 ARIAN US PSYD ANN L 724.3 SCIATICA 01/29/2012 ARIAN US PSYD ANN L 847.9 SPRAIN OF UNSPECIFIED SITE OF BACK 01/29/2012 DASHA OCONNOR HARLEEN T 72 0.2 SACROILIITIS NOT ELSEWHERE CLASSIFIED 01/29/2012 DASHA OCONNOR HARLEEN T 72 4.3 SCIATICA 01/29/2012 DASHA OCONNOR HARLEEN T 84 7.9 SPRAIN OF UNSPECIFIED SITE OF BACK 01/29/2012 DASHA OCONNOR HARLEEN T 72 0.2 SACROILIITIS NOT ELSEWHERE CLASSIFIED 01/29/2012 DASHA OCONNOR HARLEEN T 72 4.3 SCIATICA 01/29/2012 HARLEEN LOU APRN T 84 7.9 SPRAIN OF UNSPECIFIED SITE OF BACK 01/29/2012 [...] US PSYD ANN L 724.3 SCIATICA 01/29/2012 ABEBA GARZA DAISHA [...] OF UNSPECIFIED SITE OF BACK 01/29/2012 AISLINN CHURCH WORKER, BEVERLY S 720.2 SACROILIITIS NOT ELSEWHERE CLASSIFIED 01/29/2012 AISLINN CHURCH WORKER, BEVERLY S 724.3 SCIATICA 01/29/2012 AISLINN CHURCH WORKER, BEVERLY S 847.9 SPRAIN OF UNSPECIFIED SITE OF BACK 01/29/2012 ARIAN US PSYD ANN L 720.2 SACROILIITIS NOT ELSEWHERE CLASSIFIED 01/29/2012 ARIAN US PSYD ANN L 724.3 SCIATICA 01/29/2012 ARIAN US PSYD ANN L 847.9 SPRAIN OF UNSPECIFIED SITE OF BACK 01/29/2012 WILLARD DO LUCIANO K 720.2 SACROILIITIS NOT ELSEWHERE CLASSIFIED 01/29/2012 WILLARD DO LUCIANO K 724.3 SCIATICA 01/29/2012 WILLARD DO LUCIANO K 847.9 SPRAIN OF UNSPECIFIED SITE OF BACK 01/29/2012 LOUISE COBOS MD 720.2 SACROILIITIS NOT ELSEWHERE CLASSIFIED 01/29/2012 LOUISE COBOS MD 724.3 SCIATICA 01/29/2012 PAPITO GAYLE, LOUISE 847.9 SPRAIN OF UNSPECIFIED SITE OF BACK 01/29/2012 ARIAN US PSYD ANN L 720.2 SACROILIITIS NOT ELSEWHERE CLASSIFIED 01/29/2012 ARIAN US PSYD ANN L 724.3 SCIATICA 01/29/2012 ARIAN US PSYD ANN L 847.9 SPRAIN OF UNSPECIFIED SITE OF BACK 01/29/2012 AISLINN CHURCH WORKER, BEVERLY S 720.2 SACROILIITIS NOT ELSEWHERE CLASSIFIED 01/29/2012 AISLINN CHURCH WORKER, BEVERLY S 724.3 SCIATICA 01/29/2012 AISLINN CHURCH WORKER, BEVERLY S 847.9 SPRAIN OF UNSPECIFIED SITE OF BACK 01/29/2012 ARIAN US PSYD ANN L 720.2 SACROILIITIS NOT ELSEWHERE CLASSIFIED 01/29/2012 ARIAN US PSYD ANN L 724.3 SCIATICA 01/29/2012 ARIAN US PSYD ANN L 847.9 SPRAIN OF UNSPECIFIED SITE OF BACK 01/29/2012 ARIAN US PSYD ANN L 720.2 SACROILIITIS NOT ELSEWHERE CLASSIFIED 01/29/2012 ARIAN US PSYD ANN L 724.3 SCIATICA 01/29/2012 RAIAN US PSYD ANN L 847.9 SPRAIN OF UNSPECIFIED SITE OF BACK 01/29/2012 AISLINN RUIZN, BEVERLY S 720.2 SACROILIITIS NOT ELSEWHERE CLASSIFIED 01/29/2012 AISLINN RUIZN, BEVERLY S 724.3 SCIATICA 01/29/2012 AISLINN CHURCH WORKER, BEVERLY S 847.9 SPRAIN OF UNSPECIFIED SITE OF BACK 01/29/2012 ARIAN US PSYD ANN L 720.2 SACROILIITIS NOT ELSEWHERE CLASSIFIED 01/29/2012 ARIAN US PSYD ANN L 724.3 SCIATICA 01/29/2012 ARIAN US PSYD ANN L 847.9 SPRAIN OF UNSPECIFIED SITE OF BACK 01/29/2012 NELSON CHURCH WORKER, JAVAD 720 .2 SACROILIITIS NOT ELSEWHERE CLASSIFIED 01/29/2012 NELSON CHURCH WORKER, JAVAD 724 .3 SCIATICA 01/29/2012 NELSON CHURCH WORKER, JAVAD 847 .9 SPRAIN OF UNSPECIFIED SITE OF BACK 01/29/2012 AISLINN OCONNOR, BEVERLY S 720.2 SACROILIITIS NOT ELSEWHERE CLASSIFIED 01/29/2012 AISLINN CHURCH WORKER, BEVERLY S 724.3 SCIATICA 01/29/2012 AISLINN CHURCH WORKER, BEVERLY S 847.9 SPRAIN OF UNSPECIFIED SITE OF BACK 01/29/2012 NELSON CHURCH WORKER, JAVAD 720 .2 SACROILIITIS NOT ELSEWHERE CLASSIFIED 01/29/2012 NELSON CHURCH WORKER, JAVAD 724 .3 SCIATICA 01/29/2012 NELSON CHURCH WORKER, JAVAD 847 .9 SPRAIN OF UNSPECIFIED SITE OF BACK 01/29/2012 [...] OF UNSPECIFIED SITE OF BACK 01/29/2012 AISLINN OCONNOR, BEVERLY S 720.2 SACROILIITIS NOT ELSEWHERE CLASSIFIED 01/29/2012 AISLINN CHURCH WORKER, BEVERLY S 724.3 SCIATICA 01/29/2012 AISLINN CHURCH WORKER, BEVERLY S 847.9 SPRAIN OF UNSPECIFIED SITE OF BACK 01/29/2012 ROXANNACARLOS EDUARDO OCONNOR, CATALINA A 72 0.2 SACROILIITIS NOT ELSEWHERE CLASSIFIED 01/29/2012 ROXANNA CHURCH WORKER, CATALINA A 72 4.3 SCIATICA 01/29/2012 ROXANNACARLOS EDUARDO OCONNOR, CATALINA A 84 7.9 SPRAIN OF UNSPECIFIED SITE OF BACK 01/29/2012 NELSON OCONNOR JAVAD 720 .2 SACROILIITIS NOT ELSEWHERE CLASSIFIED 01/29/2012 NELSON OCONNOR JAVAD 724 .3 SCIATICA 01/29/2012 NELSON ANASTASIA JAVAD 847 .9 SPRAIN OF UNSPECIFIED SITE OF BACK 01/29/2012 [...] OF BACK 01/29/2012 ROXANNA OCONNOR CATALINA A 72 0.2 SACROILIITIS NOT ELSEWHERE CLASSIFIED 01/29/2012 ROXANNA CHURCH WORKER, CATALINA A 72 4.3 SCIATICA 01/29/2012 ROXANNA OCONNOR, CATALINA A 84 7.9 SPRAIN OF UNSPECIFIED SITE OF BACK 01/29/2012 [...] ARIAN US PSYD L 611.71 MASTODYNIA 04/06/2012 611.71 MAS TODYNIA 04/06/2012 ARIAN US PSYD L 611.71 MASTODYNIA 04/06/2012 611.71 MAS TODYNIA 04/06/2012 611.71 MAS TODYNIA 04/06/2012 611.71 MAS TODYNIA 04/06/2012 611.71 MAS TODYNIA 04/06/2012 611.71 MAS TODYNIA 04/06/2012 611.71 MAS TODYNIA 04/06/2012 611.71 MAS TODYNIA 04/06/2012 611.71 MAS TODYNIA 04/06/2012 611.71 MAS TODYNIA 04/06/2012 611.71 MAS TODYNIA 04/06/2012 611.71 MAS TODYNIA 04/06/2012 611.71 MAS TODYNIA 04/06/2012 611.71 MAS TODYNIA 04/06/2012 611.71 MAS TODYNIA 04/06/2012 ARIAN US PSYD L 611.71 MASTODYNIA 04/06/2012 ARIAN US PSYD L 611.71 MASTODYNIA 04/06/2012 LUCIANO WILLARD DO 611.71 MASTODYNIA 04/06/2012 JERMAINE FERRER APRN 611.71 MASTODYNIA 04/06/2012 ARIAN US PSYD L 611.71 MASTODYNIA 04/06/2012 CATALINA MCKNIGHT APRN 611.71 MASTODYNIA 04/06/2012 BEVERLY TAO APRN 611.71 MASTODYNIA 04/06/2012 JERMAINE FERRER APRN 611.71 MASTODYNIA 04/06/2012 ARIAN US PSYD 611.71 MASTODYNIA 04/06/2012 HARLEEN LOU APRN 611.71 MASTODYNIA 04/06/2012 HARLEEN LOU APRN 611.71 MASTODYNIA 04/06/2012 ARIAN US PSYD 611.71 MASTODYNIA 04/06/2012 ARIAN US PSYD 611.71 MASTODYNIA 04/06/2012 LOUISE COBOS MD 611.7 1 MASTODYNIA 04/06/2012 JERMAINE FERRER APRN 611.71 MASTODYNIA 04/06/2012 ARIAN US PSYD 611.71 MASTODYNIA 04/06/2012 ARIAN US PSYD 611.71 MASTODYNIA 04/06/2012 ARIAN US PSYD 611.71 MASTODYNIA 04/06/2012 BEVERLY TAO APRN S 611.71 MASTODYNIA 04/06/2012 ARIAN US PSYD 611.71 MASTODYNIA 04/06/2012 LUCIANO WILLARD DO K 611.71 MASTODYNIA 04/06/2012 LOUISE COBOS MD 611.7 1 MASTODYNIA 04/06/2012 ARIAN US PSYD 611.71 MASTODYNIA 04/06/2012 BEVERLY TAO APRN 611.71 MASTODYNIA 04/06/2012 ARIAN US PSYD L 611.71 MASTODYNIA 04/06/2012 ARIAN US PSYD L 611.71 MASTODYNIA 04/06/2012 BEVERLY TAO APRN S 611.71 MASTODYNIA 04/06/2012 ARIAN US PSYD L 611.71 MASTODYNIA 04/06/2012 NELSON OCONNOR JAVAD 611 .71 MASTODYNIA 04/06/2012 BEVERLY TAO APRN S 611.71 MASTODYNIA 04/06/2012 MADAI DAMON APRNETTE 611 .71 MASTODYNIA 04/06/2012 ARIAN US PSYD L 611.71 MASTODYNIA 04/06/2012 ARIAN US PSYD L 611.71 MASTODYNIA 04/06/2012 ARIAN US PSYD L 611.71 MASTODYNIA 04/06/2012 BEVERLY TAO APRN S 611.71 MASTODYNIA 04/06/2012 JASMIN MCKNIGHT APRNIDI A 611.71 MASTODYNIA 04/06/2012 MADAI DAMON APRNETTE 611 .71 MASTODYNIA 04/06/2012 ARIAN US PSYD L 611.71 MASTODYNIA 04/06/2012 ARIAN US PSYD L 611.71 MASTODYNIA 04/06/2012 BEVERLY TAO APRN S 611.71 MASTODYNIA 04/06/2012 ARIAN US PSYD L 611.71 MASTODYNIA 04/06/2012 ARIAN US PSYD L 611.71 MASTODYNIA 04/06/2012 ROXANNA OCONNOR CATALINA A 611.71 MASTODYNIA 04/06/2012 ARIAN US PSYD L 611.71 MASTODYNIA 04/06/2012 ARIAN US PSYD L 611.71 MASTODYNIA 04/06/2012 ARIAN US PSYD L 611.71 MASTODYNIA 08/25/2012 791.0 PROT EINURIA 08/25/2012 791.0 PROT EINURIA 08/25/2012 791.0 PROT EINURIA 08/25/2012 791.0 PROT EINURIA 08/25/2012 791.0 PROT EINURIA 08/25/2012 791.0 PROT EINURIA 08/25/2012 791.0 PROT EINURIA 08/25/2012 791.0 PROT EINURIA 08/25/2012 ARIAN US PSYD L 791.0 PROTEINURIA 08/25/2012 ARIAN US PSYD L 791.0 PROTEINURIA 08/25/2012 WILLARD DO, LUCIANO K 791.0 PROTEINURIA 08/25/2012 GARTON CHURCH WORKERJERMAINE Solitario D 791.0 PROTEINURIA 08/25/2012 ARIAN US PSYD L 791.0 PROTEINURIA 08/25/2012 ROXANNA CHURCH WORKER, CATALINA A 79 1.0 PROTEINURIA 08/25/2012 AISLINN CHURCH WORKER, BEVERLY S 791.0 PROTEINURIA 08/25/2012 GARTON CHURCH WORKERJERMAINE Solitario 791.0 PROTEINURIA 08/25/2012 ARIAN US PSYD L 791.0 PROTEINURIA 08/25/2012 DASHA CHURCH WORKER, HARLEEN T 79 1.0 PROTEINURIA 08/25/2012 DASHA CHURCH WORKER, HARLEEN T 79 1.0 PROTEINURIA 08/25/2012 ARIAN US PSYD L 791.0 PROTEINURIA 08/25/2012 ARIAN US PSYD ANN L 791.0 PROTEINURIA 08/25/2012 LOUISE COBOS MD 791.0 PROTEINURIA 08/25/2012 JERMAINE FERRER APRN D 791.0 PROTEINURIA 08/25/2012 ARIAN US PSYD ANN L 791.0 PROTEINURIA 08/25/2012 ARIAN US PSYD ANN L 791.0 PROTEINURIA 08/25/2012 ARIAN US PSYD ANN L 791.0 PROTEINURIA 08/25/2012 AISLINN CHURCH WORKER, BEVERLY S 791.0 PROTEINURIA 08/25/2012 ARIAN US PSYD ANN L 791.0 PROTEINURIA 08/25/2012 WILLARD DO, LUCIANO K 791.0 PROTEINURIA 08/25/2012 LOUISE COBOS MD 791.0 PROTEINURIA 08/25/2012 ARIAN US PSYD L 791.0 PROTEINURIA 08/25/2012 AISLINN CHURCH WORKER, BEVERLY S 791.0 PROTEINURIA 08/25/2012 ARIAN US PSYD ANN L 791.0 PROTEINURIA 08/25/2012 ARIAN US PSYD ANN L 791.0 PROTEINURIA 08/25/2012 AISLINN CHURCH WORKER, BEVERLY S 791.0 PROTEINURIA 08/25/2012 ARIAN US PSYD ANN L 791.0 PROTEINURIA 08/25/2012 NELSON CHURCH WORKER, JAVAD 791 .0 PROTEINURIA 08/25/2012 AISLINN CHURCH WORKER, BEVERLY S 791.0 PROTEINURIA 08/25/2012 NELSON CHURCH WORKER, JAVAD 791 .0 PROTEINURIA 08/25/2012 ARIAN US PSYD ANN L 791.0 PROTEINURIA 08/25/2012 ARIAN US PSYD ANN L 791.0 PROTEINURIA 08/25/2012 ARIAN US PSYD ANN L 791.0 PROTEINURIA 08/25/2012 AISLINN CHURCH WORKER, BEVERLY S 791.0 PROTEINURIA 08/25/2012 ROXANNA CHURCH WORKER, CATALINA A 79 1.0 PROTEINURIA 08/25/2012 NELSON CHURCH WORKER, JAVAD 791 .0 PROTEINURIA 08/25/2012 ARIAN US PSYD ANN L 791.0 PROTEINURIA 08/25/2012 ARIAN US PSYD ANN L 791.0 PROTEINURIA 08/25/2012 AISLINN CHURCH WORKER, BEVERLY S 791.0 PROTEINURIA 08/25/2012 ARIAN US PSYD ANN L 791.0 PROTEINURIA 08/25/2012 ARIAN US PSYD ANN L 791.0 PROTEINURIA 08/25/2012 ROXANNA CHURCH WORKER, CATALINA A 79 1.0 PROTEINURIA 08/25/2012 ARIAN US PSYD ANN L 791.0 PROTEINURIA 08/25/2012 ARIAN US PSYD ANN L 791.0 PROTEINURIA 08/25/2012 ARIAN US PSYD ANN L 791.0 PROTEINURIA 09/15/2012 BERNY CASTRO MD Ot 250.60 DIAB W NEURO MANIFEST, TYPE II OR UNSPEC 09/15/2012 BERNY CASTRO MD, Ot 357 .2 NEUROPATHY IN DIABETES 09/15/2012 BERNY CASTRO MD Ot 599 .0 URIN TRACT INFECTION NOS 09/15/2012 BERNY CASTRO MD Ot 729 .5 PAIN IN LIMB 09/15/2012 BERNY CASTRO MD Ot V12.51 HX-VENOUS THROMBOSIS EMBOLISM 10/03/2012 626.4 IRRE GULAR MENSTRUAL CYCLE 10/03/2012 626.4 IRRE GULAR MENSTRUAL CYCLE 10/03/2012 626.4 IRRE GULAR MENSTRUAL CYCLE 10/03/2012 626.4 IRRE GULAR MENSTRUAL CYCLE 10/03/2012 626.4 IRRE GULAR MENSTRUAL CYCLE 10/03/2012 ARIAN US PSYD L 626.4 IRREGULAR MENSTRUAL CYCLE 10/03/2012 ARIAN US PSYD L 626.4 IRREGULAR MENSTRUAL CYCLE 10/03/2012 LUCIANO WILLARD DO 626.4 IRREGULAR MENSTRUAL CYCLE 10/03/2012 JERMAINE FERRER APRN 626.4 IRREGULAR MENSTRUAL CYCLE 10/03/2012 ARIAN US PSYD 626.4 IRREGULAR MENSTRUAL CYCLE 10/03/2012 CATALINA MCKNIGHT APRN 62 6.4 IRREGULAR MENSTRUAL CYCLE 10/03/2012 BEVERLY TAO APRN 626.4 IRREGULAR MENSTRUAL CYCLE 10/03/2012 JERMAINE FERRER APRN 626.4 IRREGULAR MENSTRUAL CYCLE 10/03/2012 ARIAN US PSYD 626.4 IRREGULAR MENSTRUAL CYCLE 10/03/2012 HARLEEN LOU APRN T 62 6.4 IRREGULAR MENSTRUAL CYCLE 10/03/2012 HARLEEN LOU APRN 62 6.4 IRREGULAR MENSTRUAL CYCLE 10/03/2012 ARIAN US PSYD L 626.4 IRREGULAR MENSTRUAL CYCLE 10/03/2012 ARIAN US PSYD L 626.4 IRREGULAR MENSTRUAL CYCLE 10/03/2012 LOUISE COBOS MD 626.4 IRREGULAR MENSTRUAL CYCLE 10/03/2012 JERMAINE FERRER APRN 626.4 IRREGULAR MENSTRUAL CYCLE 10/03/2012 ARIAN US PSYD L 626.4 IRREGULAR MENSTRUAL CYCLE 10/03/2012 ARIAN US PSYD L 626.4 IRREGULAR MENSTRUAL CYCLE 10/03/2012 MCCLEEARY PSYD, DAISHA L 626.4 IRREGULAR MENSTRUAL CYCLE 10/03/2012 AISLINN OCONNOR, BEVERLY S 626.4 IRREGULAR MENSTRUAL CYCLE 10/03/2012 ARIAN US PSYD L 626.4 IRREGULAR MENSTRUAL CYCLE 10/03/2012 LUCIANO WILLARD DO 626.4 IRREGULAR MENSTRUAL CYCLE 10/03/2012 LOUISE COBOS MD 626.4 IRREGULAR MENSTRUAL CYCLE 10/03/2012 ARIAN US PSYD L 626.4 IRREGULAR MENSTRUAL CYCLE 10/03/2012 AISLINN OCONNOR, BEVERLY S 626.4 IRREGULAR MENSTRUAL CYCLE 10/03/2012 ARIAN US PSYD L 626.4 IRREGULAR MENSTRUAL CYCLE 10/03/2012 ARIAN US PSYD L 626.4 IRREGULAR MENSTRUAL CYCLE 10/03/2012 LATONYA TAO APRNA S 626.4 IRREGULAR MENSTRUAL CYCLE 10/03/2012 ARIAN US PSYD L 626.4 IRREGULAR MENSTRUAL CYCLE 10/03/2012 NELSONJAVAD ROSS APRN 626 .4 IRREGULAR MENSTRUAL CYCLE 10/03/2012 LATONYA TAO APRNA S 626.4 IRREGULAR MENSTRUAL CYCLE 10/03/2012 JAVAD DAMON APRN 626 .4 IRREGULAR MENSTRUAL CYCLE 10/03/2012 ARIAN US PSYD L 626.4 IRREGULAR MENSTRUAL CYCLE 10/03/2012 ARIAN US PSYD L 626.4 IRREGULAR MENSTRUAL CYCLE 10/03/2012 ARIAN US PSYD L 626.4 IRREGULAR MENSTRUAL CYCLE 10/03/2012 CLAUDE TAO APRNNDA S 626.4 IRREGULAR MENSTRUAL CYCLE 10/03/2012 CATALINA MCKNIGHT APRN 62 6.4 IRREGULAR MENSTRUAL CYCLE 10/03/2012 NELSON ANASTASIA JAVAD 626 .4 IRREGULAR MENSTRUAL CYCLE 10/03/2012 ARIAN US PSYD L 626.4 IRREGULAR MENSTRUAL CYCLE 10/03/2012 ARIAN US PSYD L 626.4 IRREGULAR MENSTRUAL CYCLE 10/03/2012 AISLINN OCONNOR BEVERLY S 626.4 IRREGULAR MENSTRUAL CYCLE 10/03/2012 ARIAN US PSYD L 626.4 IRREGULAR MENSTRUAL CYCLE 10/03/2012 ARIAN US PSYD L 626.4 IRREGULAR MENSTRUAL CYCLE 10/03/2012 CATALINA MCKNIGHT APRN 62 6.4 IRREGULAR MENSTRUAL CYCLE 10/03/2012 ARIAN US PSYD L 626.4 IRREGULAR MENSTRUAL CYCLE 10/03/2012 ARIAN US PSYD L 626.4 IRREGULAR MENSTRUAL CYCLE 10/03/2012 ARIAN US PSYD 626.4 IRREGULAR MENSTRUAL CYCLE 10/10/2012 278.00 OBESITY 10/10/2012 V73.81 HPV SCREENING 10/10/2012 V76.10 CLAUDE AST CANCER SCREENING 10/10/2012 V76.2 CERV ICAL CANCER SCREENING (PAP SMEAR) 10/10/2012 278.00 OBESITY 10/10/2012 V73.81 HPV SCREENING 10/10/2012 V76.10 CLAUDE AST CANCER SCREENING 10/10/2012 V76.2 CERV ICAL CANCER SCREENING (PAP SMEAR) 10/10/2012 278.00 OBESITY 10/10/2012 V73.81 HPV SCREENING 10/10/2012 V76.10 CLAUDE AST CANCER SCREENING 10/10/2012 V76.2 CERV ICAL CANCER SCREENING (PAP SMEAR) 10/10/2012 278.00 OBESITY 10/10/2012 V73.81 HPV SCREENING 10/10/2012 V76.10 CLAUDE AST CANCER SCREENING 10/10/2012 V76.2 CERV ICAL CANCER SCREENING (PAP SMEAR) 10/10/2012 278.00 OBESITY 10/10/2012 V73.81 HPV SCREENING 10/10/2012 V76.10 CLAUDE AST CANCER SCREENING 10/10/2012 V76.2 CERV ICAL CANCER SCREENING (PAP SMEAR) 10/10/2012 ARIAN US PSYD L 278.00 OBESITY 10/10/2012 ARIAN US PSYD L V73.81 HPV SCREENING 10/10/2012 ARIAN US PSYD L V76.10 BREAST CANCER SCREENING 10/10/2012 ARIAN US PSYD V76.2 CERVICAL CANCER SCREENING (PAP SMEAR) 10/10/2012 ARIAN US PSYD L 278.00 OBESITY 10/10/2012 ARIAN US PSYD L V73.81 HPV SCREENING 10/10/2012 ARIAN US PSYD V76.10 BREAST CANCER SCREENING 10/10/2012 ARIAN US PSYD V76.2 CERVICAL CANCER SCREENING (PAP SMEAR) 10/10/2012 WILLARD DO, LUCIANO K 278.00 OBESITY 10/10/2012 WILLARD DO, LUCIANO K V73.81 HPV SCREENING 10/10/2012 WILLARD DO, LUCIANO K V76.10 BREAST CANCER SCREENING 10/10/2012 WILLARD DO, LUCIANO K V76.2 CERVICAL CANCER SCREENING (PAP SMEAR) 10/10/2012 JERMAINE FERRER APRN 278.00 OBESITY 10/10/2012 JERMAINE FERRER APRN V73.81 HPV SCREENING 10/10/2012 JERMAINE FERRER APRN V76.10 BREAST CANCER SCREENING 10/10/2012 JERMAINE FERRER APRN V76.2 CERVICAL CANCER SCREENING (PAP SMEAR) 10/10/2012 ARIAN US PSYD 278.00 OBESITY 10/10/2012 ARIAN US PSYD V73.81 HPV SCREENING 10/10/2012 ARIAN US PSYD V76.10 BREAST CANCER SCREENING 10/10/2012 ARIAN US PSYD V76.2 CERVICAL CANCER SCREENING (PAP SMEAR) 10/10/2012 CATALINA MCKNIGHT APRN A 278.00 OBESITY 10/10/2012 CATALINA MCKNIGHT APRN A V73.81 HPV SCREENING 10/10/2012 CATALINA MCKNIGHT APRN A V76.10 BREAST CANCER SCREENING 10/10/2012 CATALINA MCKNIGHT APRN A V7 6.2 CERVICAL CANCER SCREENING (PAP SMEAR) 10/10/2012 LATONYA [...] OCONNOR HARLEEN T V73.81 HPV SCREENING 10/10/2012 HARLEEN LOU APRN T V76.10 BREAST CANCER SCREENING 10/10/2012 HARLEEN LOU APRN T V7 6.2 CERVICAL CANCER SCREENING (PAP SMEAR) 10/10/2012 HARLEEN LOU APRN T 278.00 OBESITY 10/10/2012 DASHA OCONNOR HARLEEN T V73.81 HPV SCREENING 10/10/2012 DASHA OCONNOR HARLEEN T V76.10 BREAST CANCER SCREENING 10/10/2012 DASHA OCONNOR HARLEEN T V7 6.2 CERVICAL CANCER SCREENING (PAP SMEAR) 10/10/2012 ARIAN [...] PSYD L V76.10 BREAST CANCER SCREENING 10/10/2012 RAIAN US PSYD V76.2 CERVICAL CANCER SCREENING (PAP SMEAR) 10/10/2012 LOUISE COBOS MD 278.0 0 OBESITY 10/10/2012 LOUISE COBOS MD V73.8 1 HPV SCREENING 10/10/2012 LOUISE COBOS MD V76.1 0 BREAST CANCER SCREENING 10/10/2012 LOUISE COBOS MD [...] OCONNOR BEVERLY S 278.00 OBESITY 10/10/2012 AISLINN OCONNOR BEVERLY S V73.81 HPV SCREENING 10/10/2012 [...] LUCIANO WILLARD DO K 278.00 OBESITY 10/10/2012 WILLARD DO LUCIANO K V73.81 HPV SCREENING 10/10/2012 RUBA WILLARD DOA K V76.10 BREAST CANCER SCREENING 10/10/2012 WILLARD , LUCIANO K V76.2 CERVICAL CANCER SCREENING (PAP SMEAR) 10/10/2012 LOUISE COBOS MD 278.0 0 OBESITY 10/10/2012 LOUISE COBOS MD V73.8 1 HPV SCREENING 10/10/2012 LOUISE COBOS MD V76.1 0 BREAST CANCER SCREENING 10/10/2012 LOUISE COBOS MD V76.2 CERVICAL CANCER SCREENING (PAP SMEAR) 10/10/2012 ARIAN US PSYD 278.00 OBESITY 10/10/2012 ARIAN US PSYD L V73.81 HPV SCREENING 10/10/2012 ARIAN US PSYD L V76.10 BREAST CANCER SCREENING 10/10/2012 ARIAN US PSYD L V76.2 CERVICAL CANCER SCREENING (PAP SMEAR) 10/10/2012 AISLINN OCONNOR BEVERLY S 278.00 OBESITY 10/10/2012 AISLINN OCONNOR BEVERLY S V73.81 HPV SCREENING 10/10/2012 CLAUDE TAO [...] CERVICAL CANCER SCREENING (PAP SMEAR) 10/10/2012 AISLINN OCONNOR, BEVERLY S 278.00 OBESITY 10/10/2012 AISLINN OCONNOR, BEVERLY S V73.81 HPV SCREENING 10/10/2012 AISLINN OCONNOR, BEVERLY S V76.10 BREAST CANCER SCREENING 10/10/2012 AISLINNCHICHI OCONNOR, BEVERLY S V76.2 CERVICAL CANCER SCREENING (PAP SMEAR) 10/10/2012 ARIAN US PSYD L 278.00 OBESITY 10/10/2012 ARIAN US PSYD L V73.81 HPV SCREENING 10/10/2012 ARIAN US PSYD L V76.10 BREAST CANCER SCREENING 10/10/2012 ARIAN SU PSYD L V76.2 CERVICAL CANCER SCREENING (PAP SMEAR) 10/10/2012 NELSON CHURCH WORKER, JAVAD 278 .00 OBESITY 10/10/2012 NELSON CHURCH WORKER, JAVAD V73 .81 HPV SCREENING 10/10/2012 NELSON CHURCH WORKER, JAVAD V76 .10 BREAST CANCER SCREENING 10/10/2012 NELSON CHURCH WORKER, JAVAD V76 .2 CERVICAL CANCER SCREENING (PAP SMEAR) 10/10/2012 AISLINN OCONNOR, BEVERLY S 278.00 OBESITY 10/10/2012 AISLINN OCONNOR, BEVERLY S V73.81 HPV SCREENING 10/10/2012 AISLINN OCONNOR, BEVERLY S V76.10 BREAST CANCER SCREENING 10/10/2012 AISLINN CHURCH WORKER, BEVERLY S V76.2 CERVICAL CANCER SCREENING (PAP SMEAR) 10/10/2012 NELSON CHURCH WORKER, JAVAD 278 .00 OBESITY 10/10/2012 NELSON CHURCH WORKER, JAVAD V73 .81 HPV SCREENING 10/10/2012 NELSON CHURCH WORKER, JAVAD V76 .10 BREAST CANCER SCREENING 10/10/2012 NELSON CHURCH WORKER, JAVAD V76 .2 CERVICAL CANCER SCREENING (PAP SMEAR) 10/10/2012 ARIAN [...] OCONNOR BEVERLY S 278.00 OBESITY 10/10/2012 AISLINN OCONNOR BEVERLY S V73.81 HPV SCREENING 10/10/2012 CLAUDE TAO APRNNDA S V76.10 BREAST CANCER SCREENING 10/10/2012 AISLINN OCONNOR BEVERLY S V76.2 CERVICAL CANCER SCREENING (PAP SMEAR) 10/10/2012 ROXANNA OCONNOR CATALINA A 278.00 OBESITY 10/10/2012 ROXANNA OCONNOR CATALINA A V73.81 HPV SCREENING 10/10/2012 ROXANNA OCONNOR, CATALINA A V76.10 BREAST CANCER SCREENING 10/10/2012 ROXANNA OCONNOR, CATALINA A V7 6.2 CERVICAL CANCER SCREENING (PAP SMEAR) 10/10/2012 NELSON OCONNOR JAVAD 278 .00 OBESITY 10/10/2012 NELSON CHURCH WORKER, JAVAD V73 .81 HPV SCREENING 10/10/2012 NELSON CHURCH WORKER, JAVAD V76 .10 BREAST CANCER SCREENING 10/10/2012 NELSON CHURCH WORKER, JAVAD V76 .2 CERVICAL CANCER SCREENING (PAP SMEAR) 10/10/2012 ARIAN [...] CERVICAL CANCER SCREENING (PAP SMEAR) 10/10/2012 AISLINN OCONNOR, BEVERLY S 278.00 OBESITY 10/10/2012 AISLINN OCONNOR, BEVERLY S V73.81 HPV SCREENING 10/10/2012 AISLINN OCONNOR, BEVERLY S V76.10 BREAST CANCER SCREENING 10/10/2012 AISLINN OCONNOR, BEVERLY S V76.2 CERVICAL CANCER SCREENING (PAP [...] CERVICAL CANCER SCREENING (PAP SMEAR) 10/10/2012 ROXANNA CHURCH WORKER, CATALINA A 278.00 OBESITY 10/10/2012 ROXANNA CHURCH WORKER, CATALINA A V73.81 HPV SCREENING 10/10/2012 ROXANNA CHURCH WORKER, CATALINA A V76.10 BREAST CANCER SCREENING 10/10/2012 ROXANNA CHURCH WORKER, CATALINA A V7 6.2 CERVICAL CANCER SCREENING (PAP SMEAR) 10/10/2012 ARIAN [...] 706.2 SEBACEOUS CYST 03/28/2013 HARLEEN LOU APRN 70 6.2 SEBACEOUS CYST 03/28/2013 HARLEEN LOU APRN 70 6.2 SEBACEOUS CYST 03/28/2013 ARIAN US PSYD L 706.2 SEBACEOUS CYST 03/28/2013 ARIAN US PSYD L 706.2 SEBACEOUS CYST 03/28/2013 LOUISE COBOS [...] ANN L 706.2 SEBACEOUS CYST 03/28/2013 AISLINN OCONNOR BEVERLY S 706.2 SEBACEOUS CYST 03/28/2013 ARIAN US PSYD ANN L 706.2 SEBACEOUS CYST 03/28/2013 ARIAN US PSYD ANN L 706.2 SEBACEOUS CYST 03/28/2013 CLAUDE TAO APRNNDA S 706.2 SEBACEOUS CYST 03/28/2013 ARIAN US PSYD ANN L 706.2 SEBACEOUS CYST 03/28/2013 NELSON OCONNOR JAVAD 706 .2 SEBACEOUS CYST 03/28/2013 CLAUDE TAO APRNNDA S 706.2 SEBACEOUS CYST 03/28/2013 NELSON OCONNOR JAVAD 706 .2 SEBACEOUS CYST 03/28/2013 ARIAN US PSYD ANN L 706.2 SEBACEOUS CYST 03/28/2013 ARIAN US PSYD ANN L 706.2 SEBACEOUS CYST 03/28/2013 ARIAN US PSYD ANN L 706.2 SEBACEOUS CYST 03/28/2013 AISLINN OCONNOR BEVERLY S 706.2 SEBACEOUS CYST 03/28/2013 ROXANNA OCONNOR CATALINA A 70 6.2 SEBACEOUS CYST 03/28/2013 NELSON OCONNOR JAVAD 706 .2 SEBACEOUS CYST 03/28/2013 ARIAN US PSYD ANN L 706.2 SEBACEOUS CYST 03/28/2013 ARIAN US PSYD ANN L 706.2 SEBACEOUS CYST 03/28/2013 CLAUDE TAO APRNNDA S 706.2 SEBACEOUS CYST 03/28/2013 ARIAN US PSYD ANN L 706.2 SEBACEOUS CYST 03/28/2013 ABEBA GARZA, DAISHA L 706.2 SEBACEOUS CYST 03/28/2013 ROXANNAKassi OCONNOR CATALINA A 70 6.2 SEBACEOUS CYST 03/28/2013 ABEBA GARZA, DAISHA L 706.2 SEBACEOUS CYST 03/28/2013 ABEBA GARZA, DAISHA L 706.2 SEBACEOUS CYST 03/28/2013 ABEBA GARZA, DAISHA L 706.2 SEBACEOUS CYST 05/03/2013 HARLEEN LOU APRN V58.32 SUTURE REMOVAL 05/03/2013 ARIAN US PSYD L V58.32 SUTURE REMOVAL 05/03/2013 ARIAN US PSYD L V58.32 SUTURE REMOVAL 05/03/2013 LOUISE COBOS MD V58.3 2 SUTURE REMOVAL 05/03/2013 JERMAINE FERRER APRN V58.32 SUTURE REMOVAL 05/03/2013 ARIAN US PSYD L V58.32 SUTURE REMOVAL 05/03/2013 ARIAN US PSYD ANN L V58.32 SUTURE REMOVAL 05/03/2013 ARIAN US PSYD L V58.32 SUTURE REMOVAL 05/03/2013 AISLINN OCONNOR BEVERLY S V58.32 SUTURE REMOVAL 05/03/2013 ARIAN US PSYD ANN L V58.32 SUTURE REMOVAL 05/03/2013 LUCIANO WILLARD DO V58.32 SUTURE REMOVAL 05/03/2013 LOUISE COBOS MD V58.3 2 SUTURE REMOVAL 05/03/2013 ARIAN US PSYD ANN L V58.32 SUTURE REMOVAL 05/03/2013 AISLINN OCONNOR, BEVERLY S V58.32 SUTURE REMOVAL 05/03/2013 ARIAN US PSYD ANN L V58.32 SUTURE REMOVAL 05/03/2013 ARIAN US PSYD ANN L V58.32 SUTURE REMOVAL 05/03/2013 AISLINN OCONNOR, BEVERLY S V58.32 SUTURE REMOVAL 05/03/2013 ARIAN US PSYD ANN L V58.32 SUTURE REMOVAL 05/03/2013 NELSON CHURCH WORKER, JAVAD V58 .32 SUTURE REMOVAL 05/03/2013 AISLINN OCONNOR BEVERLY S V58.32 SUTURE REMOVAL 05/03/2013 NELSON OCONNOR JAVAD V58 .32 SUTURE REMOVAL 05/03/2013 ARIAN US PSYD ANN L V58.32 SUTURE REMOVAL 05/03/2013 ARIAN US PSYD ANN L V58.32 SUTURE REMOVAL 05/03/2013 ARIAN US PSYD ANN L V58.32 SUTURE REMOVAL 05/03/2013 CLAUDE TAO APRNNDA S V58.32 SUTURE REMOVAL 05/03/2013 ROXANNA APRN, CATALINA A V58.32 SUTURE REMOVAL 05/03/2013 JAVAD DAMON APRN V58 .32 SUTURE REMOVAL 05/03/2013 ARIAN US PSYD L V58.32 SUTURE REMOVAL 05/03/2013 ARIAN US PSYD L V58.32 SUTURE REMOVAL 05/03/2013 LATONYA TAO APRNA S V58.32 SUTURE REMOVAL 05/03/2013 ARIAN US PSYD ANN L V58.32 SUTURE REMOVAL 05/03/2013 ARIAN US PSYD ANN L V58.32 SUTURE REMOVAL 05/03/2013 ROXANNA APRN, CATALINA A V58.32 SUTURE REMOVAL 05/03/2013 ARIAN US PSYD L V58.32 SUTURE REMOVAL 05/03/2013 ARIAN US PSYD ANN L V58.32 SUTURE REMOVAL 05/03/2013 ARIAN US PSYD L V58.32 SUTURE REMOVAL 06/05/2013 LOUISE COBOS MD 250.0 0 DIABETES II CONTROLLED (UNCOMPLICATED) 06/05/2013 LOUISE COBOS MD 784.0 HEADACHE 06/05/2013 LOUISE COBOS MD 789.0 7 ABDOMINAL PAIN GENERALIZED 06/05/2013 JERMAINE FERRER APRN [...] ANN L 789.07 ABDOMINAL PAIN GENERALIZED 06/05/2013 ARAIN US PSYD ANN L 250.00 DIABETES II CONTROLLED (UNCOMPLICATED) 06/05/2013 ARIAN US PSYD ANN L 784.0 HEADACHE 06/05/2013 ARIAN US PSYD ANN L 789.07 ABDOMINAL PAIN GENERALIZED 06/05/2013 AISLINN CHURCH WORKER, BEVERLY S 250.00 DIABETES II CONTROLLED (UNCOMPLICATED) 06/05/2013 AISLINN CHURCH WORKER, BEVERLY S 784.0 HEADACHE 06/05/2013 AISLINN CHURCH WORKER, BEVERLY S 789.07 ABDOMINAL PAIN GENERALIZED 06/05/2013 ARIAN US PSYD ANN L 250.00 DIABETES II CONTROLLED (UNCOMPLICATED) 06/05/2013 ARIAN US PSYD ANN L 784.0 HEADACHE 06/05/2013 ARIAN US PSYD ANN L 789.07 ABDOMINAL PAIN GENERALIZED 06/05/2013 WILLARD DO LUCIANO K 250.00 DIABETES II CONTROLLED (UNCOMPLICATED) 06/05/2013 WILLARD DORUBAA K 784.0 HEADACHE 06/05/2013 WILLARD DORUBAA K 789.07 ABDOMINAL PAIN GENERALIZED 06/05/2013 LOUISE COBOS MD 250.0 0 DIABETES II CONTROLLED (UNCOMPLICATED) 06/05/2013 LOUISE COBOS MD 784.0 HEADACHE 06/05/2013 LOUISE COBOS MD 789.0 7 ABDOMINAL PAIN GENERALIZED 06/05/2013 ARIAN US PSYD L 250.00 DIABETES II CONTROLLED (UNCOMPLICATED) 06/05/2013 ARIAN US PSYD ANN L 784.0 HEADACHE 06/05/2013 ARIAN US PSYD ANN L 789.07 ABDOMINAL PAIN GENERALIZED 06/05/2013 AISLINN OCONNOR, BEVERLY S 250.00 DIABETES II CONTROLLED (UNCOMPLICATED) 06/05/2013 AISLINN CHURCH WORKER, BEVERLY S 784.0 HEADACHE 06/05/2013 AISLINN CHURCH WORKER, BEVERLY S 789.07 ABDOMINAL PAIN GENERALIZED 06/05/2013 [...] L 789.07 ABDOMINAL PAIN GENERALIZED 06/05/2013 AISLINN RUIZN, BEVERLY S 250.00 DIABETES II CONTROLLED (UNCOMPLICATED) 06/05/2013 AISLINN CHURCH WORKER, BEVERLY S 784.0 HEADACHE 06/05/2013 AISLINNCHICHI RUIZN, BEVERLY S 789.07 ABDOMINAL PAIN GENERALIZED 06/05/2013 ARIAN US PSYD ANN L 250.00 DIABETES II CONTROLLED (UNCOMPLICATED) 06/05/2013 ARIAN US PSYD ANN L 784.0 HEADACHE 06/05/2013 ARIAN US PSYD ANN L 789.07 ABDOMINAL PAIN GENERALIZED 06/05/2013 NELSON CHURCH WORKER, JAVAD 250 .00 DIABETES II CONTROLLED (UNCOMPLICATED) 06/05/2013 NELSON CHURCH WORKER, JAVAD 784 .0 HEADACHE 06/05/2013 NELSON CHURCH WORKER, JAVAD 789 .07 ABDOMINAL PAIN GENERALIZED 06/05/2013 AISLINN CHURCH WORKER, BEVERLY S 250.00 DIABETES II CONTROLLED (UNCOMPLICATED) 06/05/2013 AISLINN CHURCH WORKER, BEVERLY S 784.0 HEADACHE 06/05/2013 AISLINN CHURCH WORKER, BEVERLY S 789.07 ABDOMINAL PAIN GENERALIZED 06/05/2013 NELSON CHURCH WORKER, JAVAD 250 .00 DIABETES II CONTROLLED (UNCOMPLICATED) 06/05/2013 NELSON CHURCH WORKER, JAVAD 784 .0 HEADACHE 06/05/2013 NELSON CHURCH WORKER, JAVAD 789 .07 ABDOMINAL PAIN GENERALIZED 06/05/2013 MCCLEEARY PSYD, DAISHA L 250.00 DIABETES II CONTROLLED (UNCOMPLICATED) 06/05/2013 ARIAN US PSYD ANN L 784.0 HEADACHE 06/05/2013 ARIAN US PSYD ANN L 789.07 ABDOMINAL PAIN GENERALIZED 06/05/2013 ARIAN US PSYD ANN L 250.00 DIABETES II CONTROLLED (UNCOMPLICATED) 06/05/2013 ARIAN US PSYD ANN L 784.0 HEADACHE 06/05/2013 ARIAN US PSYD ANN L 789.07 ABDOMINAL PAIN GENERALIZED 06/05/2013 ARINA US PSYD ANN L 250.00 DIABETES II CONTROLLED (UNCOMPLICATED) 06/05/2013 ARIAN US PSYD ANN L 784.0 HEADACHE 06/05/2013 ARIAN US PSYD ANN L 789.07 ABDOMINAL PAIN GENERALIZED 06/05/2013 AISLINN CHURCH WORKER, BEVERLY S 250.00 DIABETES II CONTROLLED (UNCOMPLICATED) 06/05/2013 AISLINN CHURCH WORKER, BEVERLY S 784.0 HEADACHE 06/05/2013 AISLINN CHURCH WORKER, BEVERLY S 789.07 ABDOMINAL PAIN GENERALIZED 06/05/2013 ROXANNA CHURCH WORKER, CATALINA A 250.00 DIABETES II CONTROLLED (UNCOMPLICATED) 06/05/2013 ROXANNA CHURCH WORKER, CATALINA A 78 4.0 HEADACHE 06/05/2013 ROXANNA CHURCH WORKER, CATALINA A 789.07 ABDOMINAL PAIN GENERALIZED 06/05/2013 NELSON CHURCH WORKER, JAVAD 250 .00 DIABETES II CONTROLLED (UNCOMPLICATED) 06/05/2013 NELSON CHURCH WORKER, JAVAD 784 .0 HEADACHE 06/05/2013 NELSON CHURCH WORKER, JAVAD 789 .07 ABDOMINAL PAIN GENERALIZED 06/05/2013 ARIAN US PSYD ANN L 250.00 DIABETES II CONTROLLED (UNCOMPLICATED) 06/05/2013 ARIAN US PSYD ANN L 784.0 HEADACHE 06/05/2013 ARIAN US PSYD ANN L 789.07 ABDOMINAL PAIN GENERALIZED 06/05/2013 ARIAN US PSYD ANN L 250.00 DIABETES II CONTROLLED (UNCOMPLICATED) 06/05/2013 ARIAN US PSYD ANN L 784.0 HEADACHE 06/05/2013 ARIAN US PSYD ANN L 789.07 ABDOMINAL PAIN GENERALIZED 06/05/2013 CLAUDE TAO APRNNDA S 250.00 DIABETES II CONTROLLED (UNCOMPLICATED) 06/05/2013 CLAUDE TAO APRNNDA S 784.0 HEADACHE 06/05/2013 AISLINN OCONNOR BEVERLY S 789.07 ABDOMINAL PAIN GENERALIZED 06/05/2013 [...] 250.00 DIABETES II CONTROLLED (UNCOMPLICATED) 06/05/2013 ROXANNA OCONNOR CATALINA A 78 4.0 HEADACHE 06/05/2013 ROXANNA OCONNOR CATALINA A 789.07 [...] ANN L 454.8 VARICOSE VEINS 06/21/2013 AISLINN CHURCH WORKER, BEVERLY S 454.8 VARICOSE VEINS 06/21/2013 ARIAN [...] ANN L 454.8 VARICOSE VEINS 06/21/2013 NELSON CHURCH WORKER, JAVAD 454 .8 VARICOSE VEINS 06/21/2013 AISLINN RUIZN, BEVRELY S 454.8 VARICOSE VEINS 06/21/2013 NELSON CHURCH WORKER, JAVAD 454 .8 VARICOSE VEINS 06/21/2013 ARIAN US PSYD ANN L 454.8 VARICOSE VEINS 06/21/2013 ARIAN US PSYD ANN L 454.8 VARICOSE VEINS 06/21/2013 ARIAN US PSYD ANN L 454.8 VARICOSE VEINS 06/21/2013 AISLINN CHURCH WORKER, BEVERLY S 454.8 VARICOSE VEINS 06/21/2013 ROXANNACARLOS EDUARDO OCONNOR, CATALINA A 45 4.8 VARICOSE VEINS 06/21/2013 NELSON CHURCH WORKER, JAVAD 454 .8 VARICOSE VEINS 06/21/2013 ARIAN US PSYD ANN L 454.8 VARICOSE VEINS 06/21/2013 ARIAN US PSYD ANN L 454.8 VARICOSE VEINS 06/21/2013 AISLINN CHURCH WORKER, BEVERLY S 454.8 VARICOSE VEINS 06/21/2013 ARIAN US PSYD ANN L 454.8 VARICOSE VEINS 06/21/2013 ARIAN US PSYD ANN L 454.8 VARICOSE VEINS 06/21/2013 ROXANNAKassi OCONNOR CATALINA A 45 4.8 VARICOSE VEINS 06/21/2013 ARIAN US PSYD ANN L 454.8 VARICOSE VEINS 06/21/2013 ARIAN US PSYD ANN L 454.8 VARICOSE VEINS 06/21/2013 ARIAN US PSYD ANN L 454.8 VARICOSE VEINS 07/12/2013 SOCO JOAQUIN CHURCH WORKER Ot 724 .4 07/12/2013 SOCO JOAQUIN CHURCH WORKER Ot 729 .5 07/12/2013 SOCO JOAQUIN CHURCH WORKER Ot 729.81 07/17/2013 AISLINN OCONNOR BEVERLY S 729.5 PAIN- LEG 07/17/2013 ARIAN US PSYD ANN L 729.5 PAIN- LEG 07/17/2013 LUCIANO WILLARD [...] ANN L 729.5 PAIN- LEG 07/17/2013 NELSON CHURCH WORKER, JAVAD 729 .5 PAIN- LEG 07/17/2013 AISLINN OCONNOR BEVERLY S 729.5 PAIN- LEG 07/17/2013 NELSON CHURCH WORKER, JAVAD 729 .5 PAIN- LEG 07/17/2013 ARIAN US PSYD ANN L 729.5 PAIN- LEG 07/17/2013 ARIAN US PSYD ANN L 729.5 PAIN- LEG 07/17/2013 ARIAN US PSYD ANN L 729.5 PAIN- LEG 07/17/2013 AISLINN CHURCH WORKER, BEVERLY S 729.5 PAIN- LEG 07/17/2013 ROXANNACARLOS EDUARDO OCONNOR, CATALINA A 72 9.5 PAIN- LEG 07/17/2013 NELSONVANDANA OCONNOR, JAVAD 729 .5 PAIN- LEG 07/17/2013 ABEBA GARZA, DAISHA L 729.5 PAIN- LEG 07/17/2013 ABEBA GARZA, DAISHA L 729.5 PAIN- LEG 07/17/2013 AISLINN OCONNOR BEVERLY S 729.5 PAIN- LEG 07/17/2013 ABEBA GARZA, DAISHA L 729.5 PAIN- LEG 07/17/2013 ABEBA GARZA, DAISHA L 729.5 PAIN- LEG 07/17/2013 ROXANNA APRN, CATALINA A 72 9.5 PAIN- LEG 07/17/2013 ABEBA GARZA, DAISHA L 729.5 PAIN- LEG 07/17/2013 ABEBA GARZA, DAISHA L 729.5 PAIN- LEG 07/17/2013 BAEBA GARZA, DAISHA L 729.5 PAIN- LEG 09/11/2013 CLAUDE TAO APRNNDA S 786.50 CHEST PAIN 09/11/2013 ARIAN US PSYD ANN L 786.50 CHEST PAIN 09/11/2013 ARIAN US PSYD ANN L 786.50 CHEST PAIN 09/11/2013 AISLINN OCONNOR BEVERLY S 786.50 CHEST PAIN 09/11/2013 ARIAN US PSYD ANN L 786.50 CHEST PAIN 09/11/2013 NELSON OCONNOR JAVAD 786 .50 CHEST PAIN 09/11/2013 AISLINN OCONNOR, BEVERLY S 786.50 CHEST PAIN 09/11/2013 NELSON RUIZN, JAVAD 786 .50 CHEST PAIN 09/11/2013 ARIAN US PSYD ANN L 786.50 CHEST PAIN 09/11/2013 ARIAN US PSYD ANN L 786.50 CHEST PAIN 09/11/2013 ARIAN US PSYD ANN L 786.50 CHEST PAIN 09/11/2013 CLAUDE TAO APRNNDA S 786.50 CHEST PAIN 09/11/2013 ROXANNA CHURCH WORKER, CATALINA A 786.50 CHEST PAIN 09/11/2013 JAVAD DAMON APRN 786 .50 CHEST PAIN 09/11/2013 ABEBA GARZA, DAISHA L [...] ABEBA GARZA, DAISHA L 786.50 CHEST PAIN 10/26/2013 BEVERLY TAO APRN S 721.90 SPONDYLOSIS OF UNSPECIFIED SITE WITHOUT MYELOPATHY 10/26/2013 ARIAN US PSYD ANN L 721.90 SPONDYLOSIS OF UNSPECIFIED SITE WITHOUT MYELOPATHY 10/26/2013 NELSON OCONNOR, JAVAD 721 .90 SPONDYLOSIS OF UNSPECIFIED SITE WITHOUT MYELOPATHY 10/26/2013 BEVERLY TAO APRN S 721.90 SPONDYLOSIS OF UNSPECIFIED SITE WITHOUT MYELOPATHY 10/26/2013 NELSON OCONNOR, JAVAD 721 .90 SPONDYLOSIS OF UNSPECIFIED SITE WITHOUT MYELOPATHY 10/26/2013 ARIAN US PSYD ANN L 721.90 SPONDYLOSIS OF UNSPECIFIED SITE WITHOUT MYELOPATHY 10/26/2013 ARIAN US PSYD ANN L 721.90 SPONDYLOSIS OF UNSPECIFIED SITE WITHOUT MYELOPATHY 10/26/2013 ARIAN US PSYD ANN L 721.90 SPONDYLOSIS OF UNSPECIFIED SITE WITHOUT MYELOPATHY 10/26/2013 BEVERLY TAO APRN S 721.90 SPONDYLOSIS OF UNSPECIFIED SITE WITHOUT MYELOPATHY 10/26/2013 CATALINA MCKNIGHT APRN A 721.90 SPONDYLOSIS OF UNSPECIFIED SITE WITHOUT MYELOPATHY 10/26/2013 NELSON OCONNOR, JAVAD 721 .90 SPONDYLOSIS OF UNSPECIFIED SITE WITHOUT MYELOPATHY 10/26/2013 ARIAN US PSYD ANN L 721.90 SPONDYLOSIS OF UNSPECIFIED SITE WITHOUT MYELOPATHY 10/26/2013 ARIAN US PSYD ANN L 721.90 SPONDYLOSIS OF UNSPECIFIED SITE WITHOUT MYELOPATHY 10/26/2013 BEVERLY TAO APRN S 721.90 SPONDYLOSIS OF UNSPECIFIED SITE WITHOUT MYELOPATHY 10/26/2013 ARIAN US PSYD ANN L 721.90 SPONDYLOSIS OF UNSPECIFIED SITE WITHOUT MYELOPATHY 10/26/2013 ABEBA GARZA DAISHA L 721.90 SPONDYLOSIS OF UNSPECIFIED SITE WITHOUT MYELOPATHY 10/26/2013 CATALINA MCKNIGHT APRN A 721.90 SPONDYLOSIS OF UNSPECIFIED SITE WITHOUT MYELOPATHY 10/26/2013 ARIAN US PSYD ANN L 721.90 SPONDYLOSIS OF UNSPECIFIED SITE WITHOUT MYELOPATHY 10/26/2013 ABEBA GARZA DAISHA L 721.90 SPONDYLOSIS OF UNSPECIFIED SITE WITHOUT MYELOPATHY 10/26/2013 ARIAN US PSYD ANN L 721.90 SPONDYLOSIS OF UNSPECIFIED SITE WITHOUT MYELOPATHY 10/28/2013 SOCO JOAQUIN CHURCH WORKER Ot 724 .4 10/28/2013 SOCO JOAQUIN CHURCH WORKER Ot 729 .5 11/30/2013 BEVERLY TAO APRN 354.2 LESION OF ULNAR NERVE 11/30/2013 JAVAD DAMON APRN 354 .2 LESION OF ULNAR NERVE 11/30/2013 ARIAN US PSYD ANN L 354.2 LESION OF ULNAR NERVE 11/30/2013 ARIAN US PSYD ANN L 354.2 LESION OF ULNAR NERVE 11/30/2013 ARIAN US PSYD ANN L 354.2 LESION OF ULNAR NERVE 11/30/2013 BEVERLY TAO APRN S 354.2 LESION OF ULNAR NERVE 11/30/2013 CATALINA MCKNIGHT APRN A 35 4.2 LESION OF ULNAR NERVE 11/30/2013 JAVAD DAMON APRN 354 .2 LESION OF ULNAR NERVE 11/30/2013 ARIAN US PSYD ANN L 354.2 LESION OF ULNAR NERVE 11/30/2013 ARIAN US PSYD ANN L 354.2 LESION OF ULNAR NERVE 11/30/2013 LATONYA TAO APRNA S 354.2 LESION OF ULNAR NERVE 11/30/2013 ARIAN US PSYD L 354.2 LESION OF ULNAR NERVE 11/30/2013 ARIAN US PSYD L 354.2 LESION OF ULNAR NERVE 11/30/2013 ROXANNA OCONNOR, CATALINA A 35 4.2 LESION OF ULNAR NERVE 11/30/2013 ARIAN US PSYD L 354.2 LESION OF ULNAR NERVE 11/30/2013 ARIAN US PSYD L 354.2 LESION OF ULNAR NERVE 11/30/2013 ARIAN US PSYD L 354.2 LESION OF ULNAR NERVE 12/18/2013 BHARATH GAYLE, ZEHRA Matthews Ot 278. 00 OBESITY, NOS 12/18/2013 ZEHRA SINHA MD Ot 722. 52 LUMB/LUMBOSAC DISC DEGEN 12/18/2013 ZEHRA SINHA MD Ot V58. 69 OTH MED,LT,CURRENT USE 12/18/2013 ZEHRA SINHA MD Ot V85. 32 BODY MASS INDEX 32.0-32.9, ADULT 02/12/2014 CLAUDE TAO APRNNDA S 626.4 IRREGULAR MENSTRUAL CYCLE 02/12/2014 CLAUDE TAO APRNNDA S V04.81 FLU SHOT 02/12/2014 ROXANNA RUIZN, CATALINA A 62 6.4 IRREGULAR MENSTRUAL CYCLE 02/12/2014 ROXANNACARLOS EDUARDO RUIZN, CATALNIA A V04.81 FLU SHOT 02/12/2014 NELSON CHURCH WORKER, JAVAD 626 .4 IRREGULAR MENSTRUAL CYCLE 02/12/2014 NELSON CHURCH WORKER, JAVAD V04 .81 FLU SHOT 02/12/2014 ARIAN US PSYD L 626.4 IRREGULAR MENSTRUAL CYCLE 02/12/2014 ARIAN US PSYD L V04.81 FLU SHOT 02/12/2014 ARIAN US PSYD L 626.4 IRREGULAR MENSTRUAL CYCLE 02/12/2014 ARIAN US PSYD L V04.81 FLU SHOT 02/12/2014 AISLINN OCONNOR BEVERLY S 626.4 IRREGULAR MENSTRUAL CYCLE 02/12/2014 CLAUDE TAO APRNNDA S V04.81 FLU SHOT 02/12/2014 ARIAN US PSYD L 626.4 IRREGULAR MENSTRUAL CYCLE 02/12/2014 ARIAN US PSYD L V04.81 FLU SHOT 02/12/2014 ARIAN US PSYD L 626.4 IRREGULAR MENSTRUAL CYCLE 02/12/2014 ARIAN US PSYD L V04.81 FLU SHOT 02/12/2014 ROXANNACARLOS EDUARDO OCONNOR, CATALINA A 62 6.4 IRREGULAR MENSTRUAL CYCLE 02/12/2014 ROXANNA CHURCH WORKER, CATALINA A V04.81 FLU SHOT 02/12/2014 ARIAN US PSYD L 626.4 IRREGULAR MENSTRUAL CYCLE 02/12/2014 ARIAN US PSYD L V04.81 FLU SHOT 02/12/2014 ARIAN US PSYD 626.4 IRREGULAR MENSTRUAL CYCLE 02/12/2014 ARIAN US PSYD V04.81 FLU SHOT 02/12/2014 ARIAN US PSYD 626.4 IRREGULAR MENSTRUAL CYCLE 02/12/2014 ARIAN US PSYD L V04.81 FLU SHOT 02/20/2014 JAVAD DAMON APRN 300 .00 AN ANXIETY UNSPEC 02/20/2014 ARIAN US PSYD L 300.00 AN ANXIETY UNSPEC 02/20/2014 ARIAN US PSYD L 300.00 AN ANXIETY UNSPEC 02/20/2014 BEVERLY TAO APRN S 300.00 AN ANXIETY UNSPEC 02/20/2014 ARIAN US PSYD L 300.00 AN ANXIETY UNSPEC 02/20/2014 ARIAN US PSYD L 300.00 AN ANXIETY UNSPEC 02/20/2014 ROXANNA CHURCH WORKER, CATALINA A 300.00 AN ANXIETY UNSPEC 02/20/2014 ARIAN US PSYD L 300.00 AN ANXIETY UNSPEC 02/20/2014 ARIAN US PSYD L 300.00 AN ANXIETY UNSPEC 02/20/2014 ARIAN US PSYD L 300.00 AN ANXIETY UNSPEC 03/14/2014 ARIAN US PSYD L V62.89 OTHER PSYCHOLOGICAL OR PHYSICAL STRESS NOT ELSEWHERE C LASSIFIED 03/14/2014 AISLINN CHURCH WORKER, BEVERLY S V62.89 OTHER PSYCHOLOGICAL OR PHYSICAL STRESS NOT ELSEWHERE C LASSIFIED 03/14/2014 ARIAN US PSYD L V62.89 OTHER PSYCHOLOGICAL OR PHYSICAL STRESS NOT ELSEWHERE C LASSIFIED 03/14/2014 ARIAN US PSYD ANN L V62.89 OTHER PSYCHOLOGICAL OR PHYSICAL STRESS NOT ELSEWHERE C LASSIFIED 03/14/2014 ROXANNACATALINA THIBODEAUX APRN A V62.89 OTHER PSYCHOLOGICAL OR PHYSICAL STRESS NOT ELSEWHERE C LASSIFIED 03/14/2014 ARIAN US PSYD L V62.89 OTHER PSYCHOLOGICAL OR PHYSICAL STRESS NOT ELSEWHERE C LASSIFIED 03/14/2014 ARIAN US PSYD L V62.89 OTHER PSYCHOLOGICAL OR PHYSICAL STRESS NOT ELSEWHERE C LASSIFIED 03/14/2014 ARIAN US PSYD L V62.89 OTHER PSYCHOLOGICAL OR PHYSICAL STRESS NOT ELSEWHERE C LASSIFIED 03/17/2014 DELMA PIMENTEL MD T Ot 275.2 DIS MAGNESIUM METABOLISM 03/17/2014 DELMA PIMENTEL MD T Ot 276.8 HYPOPOTASSEMIA 03/17/2014 DELMA PIMENTEL MD T Ot 722.52 LUMB/LUMBOSAC DISC DEGEN 03/17/2014 DELMA PIMENTEL MD T Ot 780.2 SYNCOPE AND COLLAPSE 03/17/2014 DELMA PIMENTEL MD T Ot 782.0 SKIN SENSATION DISTURB 03/20/2014 BEVERLY TAO APRN S 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 03/20/2014 BEVERLY TAO APRN S 276.8 HYPOPOTASSEMIA 03/20/2014 BEVERLY TAO APRN S 724.4 THORACIC OR LUMBOSACRAL NEURITIS OR RADICULITIS UNSPEC IFIED 03/20/2014 ARIAN US PSYD ANN L 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 03/20/2014 ARIAN US PSYD L 276.8 HYPOPOTASSEMIA 03/20/2014 ARIAN US PSYD ANN L 724.4 THORACIC OR LUMBOSACRAL NEURITIS OR RADICULITIS UNSPEC IFIED 03/20/2014 ARIAN US PSYD ANN L 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 03/20/2014 ARIAN US PSYD L 276.8 HYPOPOTASSEMIA 03/20/2014 ARIAN US PSYD ANN L 724.4 THORACIC OR LUMBOSACRAL NEURITIS OR RADICULITIS UNSPEC IFIED 03/20/2014 CATALINA MCKNIGHT APRN A 27 5.2 DISORDERS OF MAGNESIUM METABOLISM 03/20/2014 ROXANNA OCONNOR, CATALINA A 27 6.8 HYPOPOTASSEMIA 03/20/2014 ROXANNA OCONNOR, CATALINA A 72 4.4 THORACIC OR LUMBOSACRAL NEURITIS OR RADICULITIS UNSPECIFIED 03/20/2014 ARIAN US PSYD ANN L 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 03/20/2014 ARIAN US PSYD ANN L 276.8 HYPOPOTASSEMIA 03/20/2014 ARIAN US PSYD ANN L 724.4 THORACIC OR LUMBOSACRAL NEURITIS OR RADICULITIS UNSPEC IFIED 03/20/2014 ARIAN US PSYD ANN L 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 9 04/16/2014 DERRELL MEAD UPSETTER Ot 729. 5 04/16/2014 DERRELL MEAD UPSETTER Ot 823. 80 04/16/2014 DERRELL MEAD UPSETTER Ot E928 .9 04/16/2014 BEVERLY TAO UPSETTER Ot 719.45 04/16/2014 BEVERLY TAO UPSETTER Ot 722.10 04/16/2014 BEVERLY TAO UPSETTER Ot 786.50 04/16/2014 ZEHRA SINHA MD Ot 278. 00 04/16/2014 ZEHRA SINHA MD Ot 722. 52 04/16/2014 ZEHRA SINHA MD Ot V58. 69 04/16/2014 ZEHRA SINHA MD Ot V85. 34 04/16/2014 ZEHRA SINHA MD Ot 278. 00 04/16/2014 ZEHRA SINHA MD Ot 722. 52 04/16/2014 ZEHRA SINHA MD Ot V58. 67 04/16/2014 ZEHRA SINHA MD Ot V58. 69 04/16/2014 ZEHRA SINHA MD Ot V85. 35 04/16/2014 ZEHRA SINHA MD Ot 278. 00 04/16/2014 ZEHRA SINHA MD Ot 722. 52 04/16/2014 ZEHRA SINHA MD Ot V58. 67 04/16/2014 ZEHRA SINHA MD Ot V58. 69 04/16/2014 ZEHRA SINHA MD Ot V85. 35 04/20/2014 CATALINA MCKNIGHT APRN A 46 1.9 SINUSITIS ACUTE 04/20/2014 CATALINA MCKNIGHT APRN A 46 2 ACUTE PHARYNGITIS 04/20/2014 CATALINA MCKNIGHT APRN A 78 6.2 COUGH 04/20/2014 ARIAN US PSYD ANN L [...] 789.07 04/30/2014 Ot 611.71 04/30/2014 CHONG HORTON UPSETTER Ot 611.71 04/30/2014 ZEHRA SINHA MD Ot 278. 00 04/30/2014 ZEHRA SINHA MD Ot 722. 52 04/30/2014 ZEHRA SINHA MD Ot V58. 67 04/30/2014 ZEHRA SINHA MD Ot V58. 69 04/30/2014 ZEHRA SINHA MD Ot V85. 35 05/03/2014 CATALINA MCKNIGHT APRN V76.10 BREAST CANCER SCREENING 05/03/2014 ARIAN US PSYD V76.10 BREAST CANCER SCREENING 05/03/2014 ARIAN US PSYD V76.10 BREAST CANCER SCREENING 05/03/2014 ARIAN US PSYD V76.10 BREAST CANCER SCREENING 05/07/2014 Ot 611.71 05/07/2014 DERRELL MEAD UPSETTER Ot 454. 9 05/07/2014 DERRELL MEAD UPSETTER Ot 729. 5 05/07/2014 DERRELL MEAD UPSETTER Ot 823. 80 05/07/2014 DERRELL MEAD UPSETTER Ot E928 .9 05/07/2014 BEVERLY TAO UPSETTER Ot 719.45 05/07/2014 BEVERLY TAO UPSETTER Ot 722.10 05/07/2014 BEVERLY TAO UPSETTER Ot 786.50 05/07/2014 ZEHRA SINHA MD Ot 278. 00 05/07/2014 ZEHRA SINHA MD Ot 722. 52 05/07/2014 ZEHRA SINHA MD Ot V58. 69 05/07/2014 ZEHRA SINHA MD Ot V85. 34 05/07/2014 ZEHRA SINHA MD Ot 278. 00 05/07/2014 ZEHRA SINHA MD Ot 722. 52 05/07/2014 ZEHRA SINHA MD Ot V58. 67 05/07/2014 ZEHRA SINHA MD Ot V58. 69 05/07/2014 ZEHRA SINHA MD Ot V85. 35 05/14/2014 Ot 787.01 05/14/2014 Ot 787.91 05/14/2014 Ot 789.1 05/14/2014 Ot 787.01 05/14/2014 Ot 789.07 05/14/2014 Ot 611.71 05/14/2014 CHONG HORTON UPSETTER Ot 611.71 05/14/2014 ZEHRA SINHA MD Ot 278. 00 05/14/2014 ZEHRA SINHA MD Ot 722. 52 05/14/2014 ZEHRA SINHA MD Ot V58. 67 05/14/2014 ZEHRA SINHA MD Ot V58. 69 05/14/2014 ZEHRA SINHA MD Ot V85. 35 05/14/2014 ZEHRA SINHA MD Ot 278. 00 05/14/2014 ZEHRA SINHA MD Ot 722. 52 05/14/2014 ZEHRA SINHA MD Ot V58. 67 05/14/2014 ZEHRA SINHA MD Ot V58. 69 05/14/2014 ZEHRA SINHA MD Ot V85. 35 05/14/2014 Ot 611.71 05/14/2014 DERRELL MEAD UPSETTER Ot 454. 9 05/14/2014 DERRELL MEAD UPSETTER Ot 729. 5 05/14/2014 DERRELL MEAD UPSETTER Ot 823. 80 05/14/2014 DERRELL MEAD UPSETTER Ot E928 .9 05/14/2014 BEVERLY TAO UPSETTER Ot 719.45 05/14/2014 BEVERLY TAO UPSETTER Ot 722.10 05/14/2014 BEVERLY TAO UPSETTER Ot 786.50 05/14/2014 ZEHRA SINHA MD Ot 278. 00 05/14/2014 ZEHRA SINHA MD Ot 722. 52 05/14/2014 ZEHRA SINHA MD Ot V58. 69 05/14/2014 ZEHRA SINHA MD Ot V85. 34 05/14/2014 ZEHRA SINHA MD Ot 278. 00 05/14/2014 ZEHRA SINHA MD Ot 722. 52 05/14/2014 ZEHRA SINHA MD Ot V58. 67 05/14/2014 ZEHRA SINHA MD Ot V58. 69 05/14/2014 ZEHRA SINHA MD Ot V85. 35 05/15/2014 Ot 611.71 05/15/2014 DERRELL MEAD UPSETTER Ot 454. 9 05/15/2014 DERRELL MEAD UPSETTER Ot 729. 5 05/15/2014 DERRELL MEAD UPSETTER Ot 823. 80 05/15/2014 DERRELL MEAD UPSETTER Ot E928 .9 05/15/2014 BEVERLY TAO UPSETTER Ot 719.45 05/15/2014 BEVERLY TAO UPSETTER Ot 722.10 05/15/2014 BEVERLY TAO UPSETTER Ot 786.50 05/15/2014 ZEHRA SINHA MD Ot 278. 00 05/15/2014 ZEHRA SINHA MD Ot 722. 52 05/15/2014 ZEHRA SINHA MD Ot V58. 69 05/15/2014 ZEHRA SINHA MD Ot V85. 34 05/15/2014 ZEHRA SINHA MD Ot 278. 00 05/15/2014 ZEHRA SINHA MD Ot 722. 52 05/15/2014 ZEHRA SINHA MD Ot V58. 67 05/15/2014 ZEHRA SINHA MD Ot V58. 69 05/15/2014 ZEHRA SINHA MD Ot V85. 35 05/17/2014 CATALINA MCKNIGHT APRN Ot V76.12 05/17/2014 CATALINA MCKNIGHT APRN Ot V76.12 05/25/2014 ZEHRA SINHA MD Ot 278. 00 05/25/2014 ZEHRA SINHA MD Ot 722. 52 05/25/2014 ZEHRA SINHA MD Ot V58. 67 05/25/2014 ZEHRA SINHA MD Ot V58. 69 05/25/2014 ZEHRA SINHA MD Ot V85. 35 05/25/2014 CATALINA MCKNIGHT APRN Ot V76.12 07/18/2014 CATALINA MCKNIGHT APRN Ot V76.12 07/18/2014 Ot 787.01 07/18/2014 Ot 787.91 07/18/2014 Ot 789.1 07/18/2014 Ot 787.01 07/18/2014 Ot 789.07 07/18/2014 Ot 611.71 07/18/2014 CHONG HORTON UPSETTER Ot 611.71 07/18/2014 CATALINA MCKNIGHT APRN Ot V76.12 08/15/2014 CATALINA MCKNIGHT APRN Ot V76.12 08/15/2014 ZEHRA SINHA MD Ot 278. 00 08/15/2014 ZEHRA SINHA MD Ot 722. 52 08/15/2014 ZEHRA SINHA MD Ot V58. 67 08/15/2014 ZEHRA SINHA MD Ot V58. 69 08/15/2014 ZEHRA SINHA MD Ot V85. 35 08/15/2014 CATALINA MCKNIGHT APRN Ot V76.12 08/15/2014 SWEET PA, DELMA R Ot 724. 5 08/15/2014 SWEET PA, DELMA R Ot 729. 2 08/15/2014 SWEET PA, DELMA R Ot V57. 1 08/28/2014 CATALINA MCKNIGHT APRN Ot V76.12 08/29/2014 SWEET PA, DELMA R Ot 724. 5 08/29/2014 SWEET PA, DELMA R Ot 729. 2 08/29/2014 SWEET PA, DELMA R Ot V57. 1 09/12/2014 CATALINA MCKNIGHT APRN Ot V76.12 09/18/2014 SWEET PA, DELMA R Ot 724. 5 09/18/2014 SWEET PA, DELMA R Ot 729. 2 09/18/2014 SWEET PA, DELMA R Ot V57. 1 09/19/2014 SWEET PA, DELMA R Ot 724. 5 BACKACHE NOS 09/19/2014 SWEET PA, DELMA R Ot 729. 2 NEURALGIA/NEURITIS NOS 09/19/2014 SWEET PA, DELMA R Ot V57. 1 PHYSICAL THERAPY NEC 10/13/2014 ZEHRA SINHA MD Ot 278. 00 10/13/2014 ZEHRA SINHA MD Ot 722. 52 10/13/2014 ZEHRA SINHA MD Ot V58. 67 10/13/2014 ZEHRA SINHA MD Ot V58. 69 10/13/2014 ZEHRA SINHA MD Ot V85. 35 10/13/2014 CATALINA MCKNIGHT CHURCH WORKER Ot V76.12 10/13/2014 TYREE HENNESSY MD Ot 998. 13 SEROMA COMPLICAT A PROC 10/13/2014 TYREE HENNESSY MD Ot 998. 32 DISRUPTION OF EXTERNAL OPERATION (SURGIC 10/23/2014 Ot 787.01 10/23/2014 Ot 787.91 10/23/2014 Ot 789.1 10/23/2014 Ot 787.01 10/23/2014 Ot 789.07 10/23/2014 Ot 611.71 10/23/2014 CHONG HORTON Ot 611.71 10/26/2014 CATALINA MCKNIGHT APRN Ot V76.12 05/15/2015 ZEHRA SINHA MD Ot 278. 00 05/15/2015 ZEHRA SINHA MD Ot 722. 52 05/15/2015 ZEHRA SINHA MD Ot V58. 67 05/15/2015 ZEHRA SINHA MD Ot V58. 69 05/15/2015 ZEHRA SINHA MD Ot V85. 35 05/15/2015 CATALINA MCKNIGHT APRN Ot V76.12 05/15/2015 ZEHRA SINHA MD Ot 278. 00 05/15/2015 ZEHRA SINHA MD Ot 722. 52 05/15/2015 ZEHRA SINHA MD Ot V58. 67 05/15/2015 ZEHRA SINHA MD Ot V58. 69 05/15/2015 ZEHRA SINHA MD Ot V85. 35 05/15/2015 CATALINA MCKNIGHT APRN Ot V76.12 05/20/2015 BEVERLY TAO Ot Z12.31 06/06/2015 ZEHRA SINHA MD Ot 278. 00 06/06/2015 ZEHRA SINHA MD Ot 722. 52 06/06/2015 ZEHRA SINHA MD Ot V58. 67 06/06/2015 ZEHRA SINHA MD Ot V58. 69 06/06/2015 ZEHRA SINHA MD Ot V85. 35 06/06/2015 CATALINA MCKNIGHT CHURCH WORKER Ot V76.12 06/06/2015 BEVERLY TAO Ot Z12.31 06/06/2015 ANGIE KIRKPATRICK Ot E11.9 TYPE 2 DIABETES MELLITUS WITHOUT COMPLIC 06/06/2015 ANGIE KIRKPATRICK Ot L25.9 UNSPECIFIED CONTACT DERMATITIS, UNSPECIF 06/06/2015 ANGIE KIRKPATRICK Ot Z79.4 USP (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 OF INSULIN 06/06/2015 ZEHRA SINHA MD Ot 278. 00 06/06/2015 ZEHRA SINHA MD Ot 722. 52 06/06/2015 ZEHRA SINHA MD, Ot V58. 67 06/06/2015 ZEHRA SINHA MD, Ot V58. 69 06/06/2015 ZEHRA SINHA MD, Ot V85. 35 06/06/2015 CATALINA MCKNIGHT APRN Ot V76.12 06/06/2015 BEVERLY TAO Ot Z12.31 06/07/2015 ANGIE KIRKPATRICK Ot E11.9 06/07/2015 ANGIE KIRKPATRICK Ot L25.9 06/07/2015 ANGIE KIRKPATRICK Ot Z79.4 08/21/2015 ZEHRA SINHA MD Ot 278. 00 OBESITY, NOS 08/21/2015 ZEHRA SINHA MD Ot 722. 52 LUMB/LUMBOSAC DISC DEGEN 08/21/2015 ZEHRA SINHA MD, Ot V58. 67 LONG-TERM (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 OF INSULIN 08/21/2015 ZEHRA SINHA MD Ot V58. 69 OT MED,LT,CURRENT USE 08/21/2015 ZEHRA SINHA MD Ot V85. 35 BODY MASS INDEX 35.0-35.9, ADULT 08/21/2015 CATALINA MCKNIGHT APRN Ot V76.12 OTH SCREEN MAMMO-MALIGN NEOPLASM OF CHRISTOPHER 08/21/2015 BEVERLY TAO Ot Z12.31 ENCNTR SCREEN MAMMOGRAM FOR MALIGNANT NE 08/21/2015 Ot 787.01 JOSE MANUEL SEA WITH VOMITING 08/21/2015 Ot 787.91 CELESTINO RRHEA 08/21/2015 Ot 789.1 HEPA TOMEGALY 08/21/2015 Ot 787.01 JOSE MANUEL SEA WITH VOMITING 08/21/2015 Ot 789.07 ABD OMINAL PAIN, GENERALIZED 08/21/2015 Ot 611.71 MAS TODYNIA 08/21/2015 SOL, CHONG J UPSETTER Ot 611.71 MASTODYNIA 08/21/2015 Ot 787.01 JOSE MANUEL SEA WITH VOMITING 08/21/2015 Ot 787.91 CELESTINO RRHEA 08/21/2015 Ot 789.1 HEPA TOMEGALY 08/21/2015 Ot 787.01 JOSE MANUEL SEA WITH VOMITING 08/21/2015 Ot 789.07 ABD OMINAL PAIN, GENERALIZED 08/21/2015 Ot 611.71 MAS TODYNIA 08/21/2015 CHONG HORTON UPSETTER Ot 611.71 MASTODYNIA 08/23/2015 ZEHRA SINHA MD Ot M51. 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 DISC DISORDERS W RADICULO 08/23/2015 ZEHRA SINHA MD Ot Z79.899 OTHER USP (CURRENT) DRUG THERAPY 09/05/2015 ZEHRA SINHA MD, Ot M51. 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 DISC DISORDERS W RADICULO 09/05/2015 ZEHRA SIHNA MD, Ot Z79.899 OTHER USP (CURRENT) DRUG THERAPY 09/11/2015 ANGIE KIRKPATRICK Ot E11.9 TYPE 2 DIABETES MELLITUS WITHOUT COMPLIC 09/11/2015 ANGIE KIRKPATRICK Ot L25.9 UNSPECIFIED CONTACT DERMATITIS, UNSPECIF 09/11/2015 ANGIE KIRKPATRICK Ot Z79.4 USP (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 OF INSULIN 09/11/2015 ZEHRA SINHA MD Ot M51. 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 DISC DISORDERS W RADICULO 09/11/2015 ZEHRA SINHA MD Ot Z79.899 OTHER FINANCE EFFECTIVENESS MANAGER (CURRENT) DRUG THERAPY 11/12/2015 ANGIE KIRKPATRICK Ot G89.29 OTHER CHRONIC PAIN 11/12/2015 ANGIE KIRKPATRICK Ot M54.5 LOW BACK PAIN 11/14/2015 ANGIE KIRKPATRICK Ot G89.29 OTHER CHRONIC PAIN 11/14/2015 ANGIE KIRKPATRICK Ot M54.5 LOW BACK PAIN 11/22/2015 ANGIE KIRKPATRICK Ot G89.29 OTHER CHRONIC PAIN 11/22/2015 ANGIE KIRKPATRICK Ot M54.5 LOW BACK PAIN 2016 SOCO JOAQUIN APRN Ot E11 .9 TYPE 2 DIABETES MELLITUS WITHOUT COMPLIC 2016 SOCO JOAQUIN APRN Ot I10 ESSENTIAL (PRIMARY) HYPERTENSION 2016 SOCO JOAQUIN CHURCH WORKER Ot M25.552 PAIN IN LEFT HIP 2016 SOCO JOAQUIN CHURCH WORKER Ot M54 .5 LOW BACK PAIN 2016 SOCO JOAQUIN CHURCH WORKER Ot M79.605 PAIN IN LEFT LEG 2016 SOCO JOAQUIN APRN Ot R20 .2 PARESTHESIA OF SKIN 2016 SOCO JOAQUIN CHURCH WORKER Ot Z79 .4 FINANCE EFFECTIVENESS MANAGER (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 OF INSULIN 2016 SOCO JOAQUIN CHURCH WORKER Ot Z79.82 FINANCE EFFECTIVENESS MANAGER (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 OF ASPIRIN 2016 SOCO JOAQUIN CHURCH WORKER Ot Z79.899 OTHER USP (CURRENT) DRUG THERAPY 03/05/2016 SOCO JOAQUIN APRN Ot E11 .9 TYPE 2 DIABETES MELLITUS WITHOUT COMPLIC 03/05/2016 SOCO JOAQUIN APRN Ot I10 ESSENTIAL (PRIMARY) HYPERTENSION 03/05/2016 SOCO JOAQUIN APRN Ot M25.552 PAIN IN LEFT HIP 03/05/2016 SOCO JOAQUIN APRN Ot M54 .5 LOW BACK PAIN 03/05/2016 SOCO JOAQUIN APRN Ot M79.605 PAIN IN LEFT LEG 03/05/2016 SOCO JOAQUIN APRN Ot R20 .2 PARESTHESIA OF SKIN 03/05/2016 SOCO JOAQUIN CHURCH WORKER Ot Z79 .4 USP (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 OF INSULIN 03/05/2016 SOCO JOAQUIN CHURCH WORKER Ot Z79.82 FINANCE EFFECTIVENESS MANAGER (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 OF ASPIRIN 03/05/2016 SOCO JOAQUIN CHURCH WORKER Ot Z79.899 OTHER FINANCE EFFECTIVENESS MANAGER (CURRENT) DRUG THERAPY 03/10/2016 SOCO JOAQUIN CHURCH WORKER Ot E11 .9 TYPE 2 DIABETES MELLITUS WITHOUT COMPLIC 03/10/2016 SOCO JOAQUIN CHURCH WORKER Ot I10 ESSENTIAL (PRIMARY) HYPERTENSION 03/10/2016 SOCO JOAQUIN CHURCH WORKER Ot M25.552 PAIN IN LEFT HIP 03/10/2016 SOCO JOAQUIN CHURCH WORKER Ot M54 .5 LOW BACK PAIN 03/10/2016 SOCO JOAQUIN CHURCH WORKER Ot M79.605 PAIN IN LEFT LEG 03/10/2016 SOCO JOAQUIN CHURCH WORKER Ot R20 .2 PARESTHESIA OF SKIN 03/10/2016 SOCO JOAQUIN APRN Ot Z79 .4 USP (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 OF INSULIN 03/10/2016 SOCO JOAQUIN CHURCH WORKER Ot Z79.82 FINANCE EFFECTIVENESS MANAGER (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 OF ASPIRIN 03/10/2016 SOCO JOAQUIN CHURCH WORKER Ot Z79.899 OTHER USP (CURRENT) DRUG THERAPY 03/18/2016 Ot 787.01 JOSE MANUEL SEA WITH VOMITING 03/18/2016 Ot 787.91 CELESTINO RRHEA 03/18/2016 Ot 789.1 HEPA TOMEGALY 03/18/2016 Ot 787.01 JOSE MANUEL SEA WITH VOMITING 03/18/2016 Ot 789.07 ABD OMINAL PAIN, GENERALIZED 03/18/2016 Ot 611.71 MAS TODYNIA 03/18/2016 CHONG HORTON UPSETTER Ot 611.71 MASTODYNIA 03/18/2016 ZEHRA SINHA MD Ot M54. 5 LOW BACK PAIN 03/18/2016 Ot 787.01 JOSE MANUEL SEA WITH VOMITING 03/18/2016 Ot 787.91 CELESTINO RRHEA 03/18/2016 Ot 789.1 HEPA TOMEGALY 03/18/2016 Ot 787.01 JOSE MANUEL SEA WITH VOMITING 03/18/2016 Ot 789.07 ABD OMINAL PAIN, GENERALIZED 03/18/2016 Ot 611.71 MAS TODYNIA 03/18/2016 CHONG HORTON UPSETTER Ot 611.71 MASTODYNIA 03/19/2016 ANGIE KIRKPATRICK Ot G89.29 OTHER CHRONIC PAIN 03/19/2016 ANGIE KIRKPATRICK Ot M54.5 LOW BACK PAIN 03/20/2016 Ot 787.01 JOSE MANUEL SEA WITH VOMITING 03/20/2016 Ot 787.91 CELESTINO RRHEA 03/20/2016 Ot 789.1 HEPA TOMEGALY 03/20/2016 Ot 787.01 JOSE MANUEL SEA WITH VOMITING 03/20/2016 Ot 789.07 ABD OMINAL PAIN, GENERALIZED 03/20/2016 Ot 611.71 MAS TODYNIA 03/20/2016 CHONG HORTON UPSETTER Ot 611.71 MASTODYNIA 03/20/2016 ZEHRA SINHA MD Ot E11. 9 TYPE 2 DIABETES MELLITUS WITHOUT COMPLIC 03/20/2016 ZEHRA SINHA MD Ot M51. 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 DISC DISORDERS W RADICULO 03/20/2016 ZEHRA SINHA MD Ot Z79. 4 USP (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 OF INSULIN 04/01/2016 ZEHRA SINHA MD Ot E11. 9 TYPE 2 DIABETES MELLITUS WITHOUT COMPLIC 04/01/2016 ZEHRA SINHA MD Ot M51. 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 DISC DISORDERS W RADICULO 04/01/2016 ZEHRA SINHA MD Ot Z79. 4 USP (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 OF INSULIN 04/10/2016 ZEHRA SINHA MD Ot M54. 5 LOW BACK PAIN 04/22/2016 ZEHRA SINHA MD Ot M54. 5 LOW BACK PAIN 05/01/2016 ZEHRA SINHA MD Ot M54. 5 LOW BACK PAIN 05/05/2016 ZEHRA SINHA MD Ot E11. 9 TYPE 2 DIABETES MELLITUS WITHOUT COMPLIC 05/05/2016 ZEHRA SINHA MD, Ot M51. 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 DISC DISORDERS W RADICULO 05/05/2016 ZEHRA SINHA MD Ot Z79. 4 FINANCE EFFECTIVENESS MANAGER (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 OF INSULIN 06/02/2016 SOCO JOAQUIN APRN Ot E11.65 TYPE 2 DIABETES MELLITUS WITH HYPERGLYCE 06/02/2016 SOCO JOAQUIN APRN Ot N39 .0 URINARY TRACT INFECTION, SITE NOT SPECIF 06/02/2016 SOCO JOAQUIN APRN Ot R10.13 EPIGASTRIC PAIN 06/02/2016 SOCO JOAQUIN APRN Ot Z79 .4 USP (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 OF INSULIN 06/02/2016 SOCO JOAQUIN APRN Ot Z79.82 FINANCE EFFECTIVENESS MANAGER (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 OF ASPIRIN 06/02/2016 SOCO JOAQUIN APRN Ot Z79.84 FINANCE EFFECTIVENESS MANAGER (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 OF ORAL HYPOGLYC 06/02/2016 SOCO JOAQUIN APRN Ot Z79.899 OTHER USP (CURRENT) DRUG THERAPY 06/03/2016 ZEHRA SINHA MD Ot M54. 5 LOW BACK PAIN 06/04/2016 SOCO JOAQUIN APRN Ot E11.65 TYPE 2 DIABETES MELLITUS WITH HYPERGLYCE 06/04/2016 SOCO JOAQUIN APRN Ot N39 .0 URINARY TRACT INFECTION, SITE NOT SPECIF 06/04/2016 SOCO JOAQUIN APRN Ot R10.13 EPIGASTRIC PAIN 06/04/2016 SOCO JOAQUIN APRN Ot Z79 .4 USP (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 OF INSULIN 06/04/2016 SOCO JOAQUIN APRN Ot Z79.82 USP (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 OF ASPIRIN 06/04/2016 SOCO JOAQUIN APRN Ot Z79.84 FINANCE EFFECTIVENESS MANAGER (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 OF ORAL HYPOGLYC 06/04/2016 SOCO JOAQUIN APRN Ot Z79.899 OTHER FINANCE EFFECTIVENESS MANAGER (CURRENT) DRUG THERAPY 06/22/2016 ZEHRA SINHA MD Ot M54. 5 LOW BACK PAIN 07/15/2016 ZEHRA SINHA MD Ot M54. 5 LOW BACK PAIN 08/14/2016 SOCO JOAQUIN APRN Ot E11 .9 TYPE 2 DIABETES MELLITUS WITHOUT COMPLIC 08/14/2016 SOCO JOAQUIN APRN Ot M54 .5 LOW BACK PAIN 08/14/2016 SOCO JOAQUIN APRN Ot Z79 .4 FINANCE EFFECTIVENESS MANAGER (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 OF INSULIN 08/14/2016 SOCO JOAQUIN APRN Ot Z79.82 USP (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 OF ASPIRIN 08/14/2016 SOCO JOAQUIN APRN Ot Z79.84 USP (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 OF ORAL HYPOGLYC 08/14/2016 SOCO JOAQUIN APRN Ot Z79.899 OTHER USP (CURRENT) DRUG THERAPY 09/03/2016 Ot 787.01 JOSE MANUEL SEA WITH VOMITING 09/03/2016 Ot 787.91 CELESTINO RRHEA 09/03/2016 Ot 789.1 HEPA TOMEGALY 09/03/2016 Ot 787.01 JOSE MANUEL SEA WITH VOMITING 09/03/2016 Ot 789.07 ABD OMINAL PAIN, GENERALIZED 09/03/2016 Ot 611.71 MAS TODYNIA 09/03/2016 CHONG HORTON UPSETTER Ot 611.71 MASTODYNIA 09/03/2016 ZEHRA SINHA MD Ot M54. 5 LOW BACK PAIN 09/04/2016 Ot 787.01 JOSE MANUEL SEA WITH VOMITING 09/04/2016 Ot 787.91 CELESTINO RRHEA 09/04/2016 Ot 789.1 HEPA TOMEGALY 09/04/2016 Ot 787.01 JOSE MANUEL SEA WITH VOMITING 09/04/2016 Ot 789.07 ABD OMINAL PAIN, GENERALIZED 09/04/2016 Ot 611.71 MAS TODYNIA 09/04/2016 CHONG HORTONP Ot 611.71 MASTODYNIA 09/04/2016 BHARATH GAYLE, ZEHRA Matthews Ot M54. 5 LOW BACK PAIN 09/11/2016 SOCO JOAQUIN APRN Ot E11.65 TYPE 2 DIABETES MELLITUS WITH HYPERGLYCE 09/11/2016 SOCO JOAQUIN APRN Ot N39 .0 URINARY TRACT INFECTION, SITE NOT SPECIF 09/11/2016 SOCO JOAQUIN APRN Ot R10.13 EPIGASTRIC PAIN 09/11/2016 SOCO JOAQUIN APRN Ot Z79 .4 USP (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 OF INSULIN 09/11/2016 SOCO JOAQUIN APRN Ot Z79.82 USP (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 OF ASPIRIN 09/11/2016 SOCO JOAQUIN APRN Ot Z79.84 USP (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 OF ORAL HYPOGLYC 09/11/2016 SOCO JOAQUIN APRN Ot Z79.899 OTHER FINANCE EFFECTIVENESS MANAGER (CURRENT) DRUG THERAPY 09/21/2016 BEVERLY TAOP Ot M54.9 DORSALGIA, UNSPECIFIED 10/02/2016 BEVERLY TAO UPSETTER Ot M54.9 DORSALGIA, UNSPECIFIED 10/28/2016 BEVERLY TAO UPSETTER Ot M54.9 DORSALGIA, UNSPECIFIED 05/13/2017 DELMA PIMENTEL [...] EAR 05/13/2017 DELMA PIMENTEL MD Ot Z79.4 USP (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 OF INSULIN 05/13/2017 DELMA PIMENTEL MD Ot Z79.82 USP (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 OF ASPIRIN 05/13/2017 DELMA PIMENTEL MD Ot Z82.49 FAMILY HX OF ISCHEM HEART DIS AND OTH DI 05/13/2017 DELMA PIMENTEL MD, Ot Z87.19 PERSONAL HISTORY OF OTHER DISEASES OF TH 05/13/2017 DELMA PIMENTEL MD Ot Z87.59 PERSONAL HISTORY OF COMP OF PREG, CHLDBR 05/13/2017 DELMA PIMENTEL MD Ot Z88.1 ALLERGY STATUS TO OTHER ANTIBIOTIC AGENT 05/13/2017 DELMA PIMENTEL MD Ot Z88.8 ALLERGY STATUS TO OTH DRUG/MEDS/BIOL SUB 05/14/2017 DELMA PIMENTEL MD Ot E11.9 TYPE 2 DIABETES MELLITUS WITHOUT COMPLIC 05/14/2017 DELMA PIMENTEL MD Ot E78.00 PURE HYPERCHOLESTEROLEMIA, UNSPECIFIED 05/14/2017 DELMA PIMENTEL MD Ot F31.9 BIPOLAR DISORDER, UNSPECIFIED 05/14/2017 DELMA PIMENTEL MD Ot F41.9 ANXIETY DISORDER, UNSPECIFIED 05/14/2017 DELMA PMIENTEL MD Ot G43.909 MIGRAINE, UNSP, NOT INTRACTABLE, WITHOUT 05/14/2017 DELMA PIMENTEL MD Ot H92.02 OTALGIA, LEFT EAR 05/14/2017 DELMA PIMENTEL MD Ot Z79.4 USP (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 OF INSULIN 05/14/2017 DELMA PIMENTEL MD Ot Z79.82 FINANCE EFFECTIVENESS MANAGER (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 OF ASPIRIN 05/14/2017 DELMA PIMENTEL MD Ot Z82.49 FAMILY HX OF ISCHEM HEART DIS AND OTH DI 05/14/2017 DELMA PIMENTEL MD, Ot Z87.19 PERSONAL HISTORY OF OTHER DISEASES OF 05/14/2017 DELMA PIMENTEL MD, Ot Z87.59 PERSONAL HISTORY OF COMP OF PREG, CHLDBR 05/14/2017 DELMA PIMENTEL MD Ot Z88.1 ALLERGY STATUS TO OTHER ANTIBIOTIC AGENT 05/14/2017 DELMA PIMENTEL MD Ot Z88.8 ALLERGY STATUS [...] VOMITING, UNSPECIFIED 06/11/2017 ANGIE KIRKPATRICK Ot Z79.82 USP (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 OF ASPIRIN 06/11/2017 ANGIE KIRKPATRICK Ot Z87.59 PERSONAL HISTORY OF COMP OF PREG, CHLDBR 06/11/2017 ANGIE KIRKPATRICK Ot Z88.1 ALLERGY STATUS TO OTHER ANTIBIOTIC AGENT 06/11/2017 ANGIE KIRKPATRICK Ot Z88.8 ALLERGY STATUS TO OTH DRUG/MEDS/BIOL SUB 06/14/2017 SOCO JOAQUIN APRN Ot E11 .9 TYPE 2 DIABETES MELLITUS WITHOUT COMPLIC 06/14/2017 SOCO JOAQUIN APRN Ot E78.00 PURE HYPERCHOLESTEROLEMIA, UNSPECIFIED 06/14/2017 SOCO JOAQUIN APRN Ot F31 .9 BIPOLAR DISORDER, UNSPECIFIED 06/14/2017 SOCO JOAQUIN APRN Ot F41 .9 ANXIETY DISORDER, UNSPECIFIED 06/14/2017 SOCO JOAQUIN APRN Ot G43.909 MIGRAINE, UNSP, NOT INTRACTABLE, WITHOUT 06/14/2017 SOCO JOAQUIN APRN Ot L30 .9 DERMATITIS, UNSPECIFIED 06/14/2017 SOCO JOAQUIN APRN Ot R21 RASH AND OTHER NONSPECIFIC SKIN ERUPTION 06/14/2017 SOCO JOAQUIN APRN Ot Z79 .4 FINANCE EFFECTIVENESS MANAGER (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 OF INSULIN 06/14/2017 SOCO JOAQUIN APRN Ot Z79.52 USP (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 OF SYSTEMIC STER 06/14/2017 SOCO JOAQUIN APRN Ot Z87.19 PERSONAL HISTORY OF OTHER DISEASES OF 06/14/2017 SOCO JOAQUIN APRN Ot Z87.59 PERSONAL HISTORY OF COMP OF PREG, CHLDBR 06/14/2017 SOCO JOAQUIN APRN Ot Z88 .1 ALLERGY STATUS TO OTHER ANTIBIOTIC AGENT 06/14/2017 SOCO JOAQUIN APRN Ot Z88 .8 ALLERGY STATUS TO OTH DRUG/MEDS/BIOL SUB 06/16/2017 SOCO JOAQUIN APRN Ot E11 .9 TYPE 2 DIABETES MELLITUS WITHOUT COMPLIC 06/16/2017 SOCO JOAQUIN APRN Ot E78.00 PURE HYPERCHOLESTEROLEMIA, UNSPECIFIED 06/16/2017 SOCO JOAQUIN APRN Ot F31 .9 BIPOLAR DISORDER, UNSPECIFIED 06/16/2017 SOCO JOAQUIN APRN Ot F41 .9 ANXIETY DISORDER, UNSPECIFIED 06/16/2017 SOCO JOAQUIN APRN Ot G43.909 MIGRAINE, UNSP, NOT INTRACTABLE, WITHOUT 06/16/2017 SOCO JOAQUIN APRN Ot L30 .9 DERMATITIS, UNSPECIFIED 06/16/2017 SOCO JOAQUIN APRN Ot R21 RASH AND OTHER NONSPECIFIC SKIN ERUPTION 06/16/2017 SOCO JOAQUIN APRN Ot Z79 .4 FINANCE EFFECTIVENESS MANAGER (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 OF INSULIN 06/16/2017 SOCO JOAQUIN APRN Ot Z79.52 USP (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 OF SYSTEMIC STER 06/16/2017 SOCO JOAQUIN APRN Ot Z87.19 PERSONAL HISTORY OF OTHER DISEASES OF 06/16/2017 SOCO JOAQUIN APRN Ot Z87.59 PERSONAL HISTORY OF COMP OF PREG, CHLDBR 06/16/2017 SOCO JOAQUIN APRN Ot Z88 .1 ALLERGY STATUS TO OTHER ANTIBIOTIC AGENT 06/16/2017 SOCO JOAQUIN APRN Ot Z88 .8 ALLERGY STATUS TO OTH DRUG/MEDS/BIOL SUB 09/01/2017 GRANT MANE DOA Reji Ot E11.9 TYPE 2 DIABETES MELLITUS WITHOUT COMPLIC 09/01/2017 ANTONIETTA MORRIS MAR K Ot E78.00 PURE HYPERCHOLESTEROLEMIA, UNSPECIFIED 09/01/2017 GRANT MANE DOA K Ot F31.9 BIPOLAR DISORDER, UNSPECIFIED 09/01/2017 ANTONIETTA DO MAR K Ot F41.9 ANXIETY DISORDER, UNSPECIFIED 09/01/2017 ANTONIETTA DO, MAR K Ot G43.909 MIGRAINE, UNSP, NOT INTRACTABLE, WITHOUT 09/01/2017 ANTONIETTA DO, MAR K Ot K08.89 OTHER SPECIFIED DISORDERS OF TEETH AND S 09/01/2017 ANTONIETTA MAR K Ot Z79.4 FINANCE EFFECTIVENESS MANAGER (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 OF INSULIN 09/01/2017 ANTONIETTA MAR K Ot Z79.82 USP (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 OF ASPIRIN 09/01/2017 ANTONIETTA MAR K Ot Z82.49 FAMILY HX OF ISCHEM HEART DIS AND OTH DI 09/01/2017 ANTONIETTA MAR K Ot Z87.19 PERSONAL HISTORY OF OTHER DISEASES OF 09/01/2017 ANTONIETTA MAR K Ot Z87.59 PERSONAL HISTORY OF COMP OF PREG, CHLDBR 09/01/2017 ANTONIETTA MAR K Ot Z88.0 ALLERGY STATUS TO PENICILLIN 09/01/2017 ANTONIETTA MAR K Ot Z88.8 ALLERGY STATUS TO OTH DRUG/MEDS/BIOL SUB 09/03/2017 ANTONIETTA MAR K Ot E11.9 TYPE 2 DIABETES MELLITUS WITHOUT COMPLIC 09/03/2017 ANTONIETTA MORRIS MAR K Ot E78.00 PURE HYPERCHOLESTEROLEMIA, UNSPECIFIED 09/03/2017 ANTONIETTA DO MAR K Ot F31.9 BIPOLAR DISORDER, UNSPECIFIED 09/03/2017 ANTONIETTA DO MAR K Ot F41.9 ANXIETY DISORDER, UNSPECIFIED 09/03/2017 ANTONIETTA DO MAR K Ot G43.909 MIGRAINE, UNSP, NOT INTRACTABLE, WITHOUT 09/03/2017 ANTONIETTA DO, MAR K Ot K08.89 OTHER SPECIFIED DISORDERS OF TEETH AND S 09/03/2017 ANTONIETTA DO MAR K Ot Z79.4 USP (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 OF INSULIN 09/03/2017 ANTONIETTA MAR K Ot Z79.82 FINANCE EFFECTIVENESS MANAGER (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 OF ASPIRIN 09/03/2017 ANTONIETTA MAR K Ot Z82.49 FAMILY HX OF ISCHEM HEART DIS AND OTH DI 09/03/2017 ANTONIETTA MAR K Ot Z87.19 PERSONAL HISTORY OF OTHER DISEASES OF 09/03/2017 MAR MANE DO Ot Z87.59 PERSONAL HISTORY OF COMP OF PREG, CHLDBR 09/03/2017 MAR MANE DO Ot Z88.0 ALLERGY STATUS TO PENICILLIN 09/03/2017 MAR MANE DO Ot Z88.8 ALLERGY STATUS TO OTH DRUG/MEDS/BIOL SUB 10/02/2017 MYAH OLIVAS MD Ot A08. 4 VIRAL INTESTINAL INFECTION, UNSPECIFIED 10/02/2017 MYAH OLIVAS MD Ot B37. 3 CANDIDIASIS OF VULVA AND VAGINA 10/02/2017 MYAH OLIVAS MD Ot E11. 9 TYPE 2 DIABETES MELLITUS WITHOUT COMPLIC 10/02/2017 MYAH OLIVAS MD Ot E78. 00 PURE HYPERCHOLESTEROLEMIA, UNSPECIFIED 10/02/2017 MYAH OLIVAS MD Ot F31. 9 BIPOLAR DISORDER, UNSPECIFIED 10/02/2017 MYAH OLIVAS MD Ot F41. 9 ANXIETY DISORDER, UNSPECIFIED 10/02/2017 MYAH OLIVAS MD Ot G43.909 MIGRAINE, UNSP, NOT INTRACTABLE, WITHOUT 10/02/2017 MYAH OLIVAS MD Ot R19. 7 DIARRHEA, UNSPECIFIED 10/02/2017 MYAH OLIVAS MD Ot Z79. 4 USP (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 OF INSULIN 10/02/2017 MYAH OLIVAS MD Ot Z79. 82 FINANCE EFFECTIVENESS MANAGER (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 OF ASPIRIN 10/02/2017 MYAH OLIVAS MD Ot Z82. 49 FAMILY HX OF ISCHEM HEART DIS AND OTH DI 10/02/2017 MYAH OLIVAS MD Ot Z87. 19 PERSONAL HISTORY OF OTHER DISEASES OF TH 10/02/2017 MYAH OLIVAS MD Ot Z87. 59 PERSONAL HISTORY OF COMP OF PREG, CHLDBR 10/02/2017 MYAH OLIVAS MD Ot Z88. 0 ALLERGY STATUS TO PENICILLIN 01/11/2018 CHONG HORTON UPSETTER Ot 611.71 MASTODYNIA 01/11/2018 ZEHRA SINHA MD Ot M54. 5 LOW BACK PAIN 01/12/2018 MAR MANE DO Ot E11.9 TYPE 2 DIABETES MELLITUS WITHOUT COMPLIC 01/12/2018 MAR MANE DO Ot E78.00 PURE HYPERCHOLESTEROLEMIA, UNSPECIFIED 01/12/2018 ANTONIETTA DO, MAR K Ot F31.9 BIPOLAR DISORDER, UNSPECIFIED 01/12/2018 ANTONIETTA MORRIS MAR K Ot F41.9 ANXIETY DISORDER, UNSPECIFIED 01/12/2018 ANTONIETTA MORRIS MAR K Ot G43.909 MIGRAINE, UNSP, NOT INTRACTABLE, WITHOUT 01/12/2018 ANTONIETTA DO, MAR K Ot K08.89 OTHER SPECIFIED DISORDERS OF TEETH AND S 01/12/2018 ANTONIETTA MORRIS MAR K Ot Z79.4 FINANCE EFFECTIVENESS MANAGER (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 OF INSULIN 01/12/2018 ANTONIETTA MORRIS MAR K Ot Z79.82 USP (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 OF ASPIRIN 01/12/2018 ANTONIETTA MORRIS, MAR K Ot Z82.49 FAMILY HX OF ISCHEM HEART DIS AND OTH DI 01/12/2018 ANTONIETTA MORRIS MAR K Ot Z87.19 PERSONAL HISTORY OF OTHER DISEASES OF TH 01/12/2018 ANTONIETTA MORRIS MAR K Ot Z87.59 PERSONAL HISTORY OF COMP OF PREG, CHLDBR 01/12/2018 ANTONIETTA MORRIS MAR K Ot Z88.0 ALLERGY STATUS TO PENICILLIN 01/12/2018 ANTONIETTA MORRIS MAR K Ot Z88.8 ALLERGY STATUS TO OTH DRUG/MEDS/BIOL SUB 01/18/2018 DELMA PIMENTEL MD Ot E11.9 TYPE 2 [...] EAR 01/18/2018 DELMA PIMENTEL MD Ot Z79.4 FINANCE EFFECTIVENESS MANAGER (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 OF INSULIN 01/18/2018 DELMA PIMENTEL MD Ot Z79.82 FINANCE EFFECTIVENESS MANAGER (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 OF ASPIRIN 01/18/2018 DELMA PIMENTEL MD Ot Z82.49 FAMILY HX OF ISCHEM HEART DIS AND OTH DI 01/18/2018 LOREN GAYLE, DELMA Quintana Ot Z87.19 PERSONAL HISTORY OF OTHER DISEASES OF 01/18/2018 DELMA PIMENTEL MD, Ot Z87.59 PERSONAL HISTORY OF COMP OF PREG, CHLDBR 01/18/2018 DELMA PIMENTEL MD, Ot Z88.1 ALLERGY STATUS TO OTHER ANTIBIOTIC AGENT 01/18/2018 DELMA PIMENTEL MD, Ot Z88.8 ALLERGY STATUS TO OTH DRUG/MEDS/BIOL SUB 01/29/2018 SOCO JOAQUIN APRN Ot E11 .9 TYPE 2 DIABETES MELLITUS WITHOUT COMPLIC 01/29/2018 SOCO JOAQUIN APRN Ot E78.00 PURE HYPERCHOLESTEROLEMIA, UNSPECIFIED 01/29/2018 SOCO JOAQUIN APRN Ot F31 .9 BIPOLAR DISORDER, UNSPECIFIED 01/29/2018 SOCO JOAQUIN APRN Ot F41 .9 ANXIETY DISORDER, UNSPECIFIED 01/29/2018 SOCO JOAQUIN APRN Ot G43.909 MIGRAINE, UNSP, NOT INTRACTABLE, WITHOUT 01/29/2018 SOCO JOAQUIN APRN Ot L30 .9 DERMATITIS, UNSPECIFIED 01/29/2018 SOCO JOAQUIN APRN Ot R21 RASH AND OTHER NONSPECIFIC SKIN ERUPTION 01/29/2018 SOCO JOAQUIN APRN Ot Z79 .4 FINANCE EFFECTIVENESS MANAGER (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 OF INSULIN 01/29/2018 SOCO JOAQUIN APRN Ot Z79.52 FINANCE EFFECTIVENESS MANAGER (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 OF SYSTEMIC STER 01/29/2018 SOCO JOAQUIN APRN Ot Z87.19 PERSONAL HISTORY OF OTHER DISEASES OF 01/29/2018 SOCO JOAQUIN APRN Ot Z87.59 PERSONAL HISTORY OF COMP OF PREG, CHLDBR 01/29/2018 SOCO JOAQUIN APRN Ot Z88 .1 ALLERGY STATUS TO OTHER ANTIBIOTIC AGENT 01/29/2018 SOCO JOAQUIN APRN Ot Z88 .8 ALLERGY STATUS TO OTH DRUG/MEDS/BIOL SUB 03/17/2018 [...] NAUSEA 03/17/2018 KEYONNA RICO MD Ot Z79.4 FINANCE EFFECTIVENESS MANAGER (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 OF INSULIN 03/17/2018 KEYONNA RICO MD, Ot Z79.82 USP (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 OF ASPIRIN 03/17/2018 KEYONNA RICO MD, Ot Z87.19 PERSONAL HISTORY OF OTHER DISEASES OF TH 03/17/2018 KEYONNA RICO MD, Ot Z88.1 ALLERGY STATUS TO OTHER ANTIBIOTIC AGENT 03/17/2018 KEYONNA RICO MD, Ot Z88.8 ALLERGY STATUS [...] NAUSEA 03/21/2018 KEYONNA RICO MD Ot Z79.4 USP (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 OF INSULIN 03/21/2018 KEYONNA RICO MD Ot Z79.82 FINANCE EFFECTIVENESS MANAGER (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 OF ASPIRIN 03/21/2018 KEYONNA RICO MD Ot Z87.19 PERSONAL HISTORY OF OTHER DISEASES OF 03/21/2018 KEYONNA RICO MD, Ot Z88.1 ALLERGY STATUS TO OTHER ANTIBIOTIC AGENT 03/21/2018 KEYONNA RICO MD, Ot Z88.8 ALLERGY STATUS TO OTH DRUG/MEDS/BIOL SUB 03/21/2018 KEYONNA RICO MD Ot Z98.890 OTHER SPECIFIED POSTPROCEDURAL STATES 03/21/2018 SOCO JOAQUIN APRN Ot E11 .9 TYPE 2 DIABETES MELLITUS WITHOUT COMPLIC 03/21/2018 SOCO JOAQUIN APRN Ot E78.00 PURE HYPERCHOLESTEROLEMIA, UNSPECIFIED 03/21/2018 SOCO JOAQUIN APRN Ot F31 .9 BIPOLAR DISORDER, UNSPECIFIED 03/21/2018 SOCO JOAQUIN APRN Ot F41 .9 ANXIETY DISORDER, UNSPECIFIED 03/21/2018 SOCO JOAQUIN APRN Ot G43.909 MIGRAINE, UNSP, NOT INTRACTABLE, WITHOUT 03/21/2018 SOCO JOAQUIN APRN Ot N39 .0 URINARY TRACT INFECTION, SITE NOT SPECIF 03/21/2018 SOCO JOAQUIN APRN Ot R73.09 OTHER ABNORMAL GLUCOSE 03/21/2018 SOCO JOAQUIN APRN Ot Z79.82 FINANCE EFFECTIVENESS MANAGER (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 OF ASPIRIN 03/21/2018 SOCO JOAQUIN APRN Ot Z82.49 FAMILY HX OF ISCHEM HEART DIS AND OTH DI 03/21/2018 SOCO JOAQUIN APRN Ot Z87.19 PERSONAL HISTORY OF OTHER DISEASES OF 03/21/2018 SOCO JOAQUIN APRN Ot Z88 .0 ALLERGY STATUS TO PENICILLIN 03/21/2018 SOCO JOAQUIN APRN Ot Z88 .8 ALLERGY STATUS TO OTH DRUG/MEDS/BIOL SUB 03/21/2018 SOCO JOAQUIN APRN Ot Z98.890 OTHER SPECIFIED POSTPROCEDURAL STATES 03/23/2018 KEYONNA RICO MD Ot E11.65 TYPE 2 DIABETES MELLITUS WITH HYPERGLYCE 03/23/2018 KEYONNA RICO MD Ot E78.00 PURE HYPERCHOLESTEROLEMIA, UNSPECIFIED 03/23/2018 KEYONNA RICO MD Ot F31.9 BIPOLAR DISORDER, UNSPECIFIED 03/23/2018 KEYONNA RICO MD Ot F41.9 ANXIETY DISORDER, UNSPECIFIED 03/23/2018 KEYONNA RICO MD Ot 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, UNSPECIFIED 03/23/2018 KEYONNA RICO MD, Ot G43.909 MIGRAINE, UNSP, NOT INTRACTABLE, WITHOUT 03/23/2018 KEYONNA RICO MD Ot R10.11 RIGHT UPPER QUADRANT PAIN 03/23/2018 KEYONNA RICO MD Ot R11.0 NAUSEA 03/23/2018 KEYONNA RICO MD, Ot Z79.4 FINANCE EFFECTIVENESS MANAGER (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 OF INSULIN 03/23/2018 KEYONNA RICO MD, Ot Z79.82 FINANCE EFFECTIVENESS MANAGER (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 OF ASPIRIN 03/23/2018 KEYONNA RICO MD Ot Z87.19 PERSONAL HISTORY OF OTHER DISEASES OF TH 03/23/2018 KEYONNA RICO MD Ot Z88.1 ALLERGY STATUS TO OTHER ANTIBIOTIC AGENT 03/23/2018 KEYONNA RICO MD, Ot Z88.8 ALLERGY STATUS TO OTH DRUG/MEDS/BIOL SUB 03/23/2018 KEYONNA RICO MD Ot Z98.890 OTHER SPECIFIED POSTPROCEDURAL STATES 03/24/2018 SOCO JOAQUIN APRN Ot E11 .9 TYPE 2 DIABETES MELLITUS WITHOUT COMPLIC 03/24/2018 SOCO JOAQUIN APRN Ot E78.00 PURE HYPERCHOLESTEROLEMIA, UNSPECIFIED 03/24/2018 SOCO JOAQUIN APRN Ot F31 .9 BIPOLAR DISORDER, UNSPECIFIED 03/24/2018 SOCO JOAQUIN APRN Ot F41 .9 ANXIETY DISORDER, UNSPECIFIED 03/24/2018 SOCO JOAQUIN APRN Ot G43.909 MIGRAINE, UNSP, NOT INTRACTABLE, WITHOUT 03/24/2018 SOCO JOAQUIN APRN Ot N39 .0 URINARY TRACT INFECTION, SITE NOT SPECIF 03/24/2018 SOCO JOAQUIN APRN Ot R73.09 OTHER ABNORMAL GLUCOSE 03/24/2018 SOCO JOAQUIN APRN Ot Z79.82 FINANCE EFFECTIVENESS MANAGER (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 OF ASPIRIN 03/24/2018 SOCO JOAQUIN APRN Ot Z82.49 FAMILY HX OF ISCHEM HEART DIS AND OTH DI 03/24/2018 SOCO JOAQUIN APRN Ot Z87.19 PERSONAL HISTORY OF OTHER DISEASES OF 03/24/2018 SOCO JOAQUIN APRN Ot Z88 .0 ALLERGY STATUS TO PENICILLIN 03/24/2018 SOCO JOAQUIN APRN Ot Z88 .8 ALLERGY STATUS TO OTH DRUG/MEDS/BIOL SUB 03/24/2018 SOCO JOAQUIN APRN Ot Z98.890 OTHER SPECIFIED POSTPROCEDURAL STATES 06/14/2018 SOCO JOAQUIN APRN Ot E11 .9 TYPE 2 DIABETES MELLITUS WITHOUT COMPLIC 06/14/2018 SOCO JOAQUIN APRN Ot E78.00 PURE HYPERCHOLESTEROLEMIA, UNSPECIFIED 06/14/2018 SOCO JOAQUIN APRN Ot F31 .9 BIPOLAR DISORDER, UNSPECIFIED 06/14/2018 SOCO JOAQUIN APRN Ot F41 .9 ANXIETY DISORDER, UNSPECIFIED 06/14/2018 SOCO JOAQUIN APRN Ot F60 .9 PERSONALITY DISORDER, UNSPECIFIED 06/14/2018 SOCO JOAQUIN APRN Ot G43.909 MIGRAINE, UNSP, NOT INTRACTABLE, WITHOUT 06/14/2018 SOCO JOAQUIN APRN Ot J40 BRONCHITIS, NOT SPECIFIED ACUTE OR CH 06/14/2018 SOCO JOAQUIN APRN Ot K52 .9 NONINFECTIVE GASTROENTERITIS AND COLITIS 06/14/2018 SOCO JOAQUIN APRN Ot R05 COUGH 06/14/2018 SOCO JOAQUIN APRN Ot Z79 .4 FINANCE EFFECTIVENESS MANAGER (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 OF INSULIN 06/14/2018 SOCO JOAQUIN APRN Ot Z79.82 USP (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 OF ASPIRIN 06/14/2018 SOCO JOAQUIN APRN Ot Z82.49 FAMILY HX OF ISCHEM HEART DIS AND OTH DI 06/14/2018 SOCO JOAQUIN APRN Ot Z87.19 PERSONAL HISTORY OF OTHER DISEASES OF 06/14/2018 SOCO JOAQUIN APRN Ot Z88 .1 ALLERGY STATUS TO OTHER ANTIBIOTIC AGENT 06/14/2018 SOCO JOAQUIN APRN Ot Z88 .8 ALLERGY STATUS TO OTH DRUG/MEDS/BIOL SUB 06/14/2018 SOCO JOAQUIN APRN Ot Z98.890 OTHER SPECIFIED POSTPROCEDURAL STATES 06/17/2018 SOCO JOAQUIN APRN Ot E11 .9 TYPE 2 DIABETES MELLITUS WITHOUT COMPLIC 06/17/2018 SOCO JOAQUIN APRN Ot E78.00 PURE HYPERCHOLESTEROLEMIA, UNSPECIFIED 06/17/2018 SOCO JOAQUIN APRN Ot F31 .9 BIPOLAR DISORDER, UNSPECIFIED 06/17/2018 SOCO JOAQUIN APRN Ot F41 .9 ANXIETY DISORDER, UNSPECIFIED 06/17/2018 SOCO JOAQUIN APRN Ot F60 .9 PERSONALITY DISORDER, UNSPECIFIED 06/17/2018 SOCO JOAQUIN APRN Ot G43.909 MIGRAINE, UNSP, NOT INTRACTABLE, WITHOUT 06/17/2018 SOCO JOAQUIN APRN Ot J40 BRONCHITIS, NOT SPECIFIED ACUTE OR CH 06/17/2018 SOCO JOAQUIN APRN Ot K52 .9 NONINFECTIVE GASTROENTERITIS AND COLITIS 06/17/2018 SOCO JOAQUIN APRN Ot R05 COUGH 06/17/2018 SOCO JOAQUIN APRN Ot Z79 .4 FINANCE EFFECTIVENESS MANAGER (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 OF INSULIN 06/17/2018 SOCO JOAQUIN APRN Ot Z79.82 FINANCE EFFECTIVENESS MANAGER (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 OF ASPIRIN 06/17/2018 SOCO JOAQUIN APRN Ot Z82.49 FAMILY HX OF ISCHEM HEART DIS AND OTH DI 06/17/2018 SOCO JOAQUIN APRN Ot Z87.19 PERSONAL HISTORY OF OTHER DISEASES OF TH 06/17/2018 SOCO JOAQUIN APRN Ot Z88 .1 ALLERGY STATUS TO OTHER ANTIBIOTIC AGENT 06/17/2018 SOCO JOAQUIN APRN Ot Z88 .8 ALLERGY STATUS TO OT DRUG/MEDS/BIOL SUB 06/17/2018 SOCO JOAQUIN APRN Ot Z98.890 OTHER SPECIFIED POSTPROCEDURAL STATES 06/20/2018 SOCO JOAQUIN APRN Ot E11 .9 TYPE 2 DIABETES MELLITUS WITHOUT COMPLIC 06/20/2018 SOCO JOAQUIN APRN Ot E78.00 PURE HYPERCHOLESTEROLEMIA, UNSPECIFIED 06/20/2018 SOCO JOAQUIN APRN Ot F31 .9 BIPOLAR DISORDER, UNSPECIFIED 06/20/2018 SOCO OJAQUIN APRN Ot F41 .9 ANXIETY DISORDER, UNSPECIFIED 06/20/2018 SOCO JOAQUIN APRN Ot F60 .9 PERSONALITY DISORDER, UNSPECIFIED 06/20/2018 SOCO JOAQUIN APRN Ot G43.909 MIGRAINE, UNSP, NOT INTRACTABLE, WITHOUT 06/20/2018 SOCO JOAQUIN APRN Ot J40 BRONCHITIS, NOT SPECIFIED ACUTE OR CH 06/20/2018 SOCO JOAQUIN APRN Ot K52 .9 NONINFECTIVE GASTROENTERITIS AND COLITIS 06/20/2018 SOCO JOAQUIN APRN Ot R05 COUGH 06/20/2018 SOCO JOAQUIN APRN Ot Z79 .4 FINANCE EFFECTIVENESS MANAGER (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 OF INSULIN 06/20/2018 SOCO JOAQUIN APRN Ot Z79.82 FINANCE EFFECTIVENESS MANAGER (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 OF ASPIRIN 06/20/2018 SOCO JOAQUIN APRN Ot Z82.49 FAMILY HX OF ISCHEM HEART DIS AND OTH DI 06/20/2018 SOCO JOAQUIN APRN Ot Z87.19 PERSONAL HISTORY OF OTHER DISEASES OF TH 06/20/2018 SOCO JOAQUIN APRN Ot Z88 .1 ALLERGY STATUS TO OTHER ANTIBIOTIC AGENT 06/20/2018 SOCO JOAQUIN APRN Ot Z88 .8 ALLERGY STATUS TO OT DRUG/MEDS/BIOL SUB 06/20/2018 SOCO JOAQUIN APRN Ot Z98.890 OTHER SPECIFIED POSTPROCEDURAL STATES 01/25/2019 SOCO JOAQUIN APRN Ot E11.65 TYPE 2 DIABETES MELLITUS WITH HYPERGLYCE 01/25/2019 SOCO JOAQUIN APRN Ot E78.00 PURE HYPERCHOLESTEROLEMIA, UNSPECIFIED 01/25/2019 SOCO JOAQUIN APRN Ot F31 .9 BIPOLAR DISORDER, UNSPECIFIED 01/25/2019 SOCO JOAQUIN APRN Ot F41 .9 ANXIETY DISORDER, UNSPECIFIED 01/25/2019 SOCO JOAQUIN APRN Ot F60 .9 PERSONALITY DISORDER, UNSPECIFIED 01/25/2019 SOCO JOAQUIN APRN Ot G43.909 MIGRAINE, UNSP, NOT INTRACTABLE, WITHOUT 01/25/2019 SOCO JOAQUIN APRN Ot K58 .9 IRRITABLE BOWEL SYNDROME WITHOUT DIARRHE 01/25/2019 SOCO JOAQUIN APRN Ot N39 .0 URINARY TRACT INFECTION, SITE NOT SPECIF 01/25/2019 SOCO JOAQUIN APRN Ot R73 .9 HYPERGLYCEMIA, UNSPECIFIED 01/25/2019 SOCO JOAQUIN APRN Ot Z79 .4 USP (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 OF INSULIN 01/25/2019 SOCO JOAQUIN APRN Ot Z79.82 USP (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 OF ASPIRIN 01/25/2019 SOCO JOAQUIN APRN Ot Z82.49 FAMILY HX OF ISCHEM HEART DIS AND OTH DI 01/25/2019 SOCO JOAQUIN CHURCH WORKER Ot Z88 .1 ALLERGY STATUS TO OTHER ANTIBIOTIC AGENT 01/25/2019 SOCO JOAQUIN CHURCH WORKER Ot Z88 .8 ALLERGY STATUS TO OTH DRUG/MEDS/BIOL SUB 03/26/2019 ANGIE KIRKPATRICK Ot E11.9 TYPE 2 DIABETES MELLITUS WITHOUT COMPLIC 03/26/2019 ANGIE KIRKPATRICK Ot E78.00 PURE HYPERCHOLESTEROLEMIA, UNSPECIFIED 03/26/2019 ANGIE KIRKPATRICK Ot F31.9 BIPOLAR DISORDER, UNSPECIFIED 03/26/2019 ANGIE KIRKPATRICK Ot F41.9 ANXIETY DISORDER, UNSPECIFIED 03/26/2019 ANGIE KIRKPATRICK Ot 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, UNSPECIFIED 03/26/2019 ANGIE KIRKPATRICK Ot G43.909 MIGRAINE, UNSP, NOT INTRACTABLE, WITHOUT 03/26/2019 ANGIE KIRKPATRICK Ot J06.9 ACUTE UPPER RESPIRATORY INFECTION, UNSPE 03/26/2019 ANGIE KIRKPATRICK Ot J45.909 UNSPECIFIED ASTHMA, UNCOMPLICATED 03/26/2019 ANGIE KIRKPATRICK Ot K58.9 IRRITABLE BOWEL SYNDROME WITHOUT DIARRHE 03/26/2019 ANGIE KIRKPATRICK Ot R 05 COUGH 03/26/2019 ANGIE KIRKPATRICK Ot R19.7 DIARRHEA, UNSPECIFIED 03/26/2019 ANGIE KIRKPATRICK Ot Z79.4 FINANCE EFFECTIVENESS MANAGER (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 OF INSULIN 03/26/2019 ANGIE KIRKPATRICK Ot Z82.49 FAMILY HX OF ISCHEM HEART DIS AND OTH DI 03/26/2019 ANGIE KIRKPATRICK Ot Z88.8 ALLERGY STATUS TO OTH DRUG/MEDS/BIOL SUB 03/30/2019 ANGIE KIRKPATRICK Ot E11.9 TYPE 2 DIABETES MELLITUS WITHOUT COMPLIC 03/30/2019 ANGIE KIRKPATRICK Ot E78.00 PURE HYPERCHOLESTEROLEMIA, UNSPECIFIED 03/30/2019 ANGIE KIRKPATRICK Ot F31.9 BIPOLAR DISORDER, UNSPECIFIED 03/30/2019 ANGIE KIRKPATRICK Ot F41.9 ANXIETY DISORDER, UNSPECIFIED 03/30/2019 ANGIE KIRKPATRICK Ot 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, UNSPECIFIED 03/30/2019 ANGIE KIRKPATRICK Ot G43.909 MIGRAINE, UNSP, NOT INTRACTABLE, WITHOUT 03/30/2019 ANGIE KIRKPATRICK Ot J06.9 ACUTE UPPER RESPIRATORY INFECTION, UNSPE 03/30/2019 ANGIE KIRKPATRICK Ot J45.909 UNSPECIFIED ASTHMA, UNCOMPLICATED 03/30/2019 ANGIE KIRKPATRICK Ot K58.9 IRRITABLE BOWEL SYNDROME WITHOUT DIARRHE 03/30/2019 AGNIE KIRKPATRICK Ot R 05 COUGH 03/30/2019 ANGIE KIRKPATRICK Ot R19.7 DIARRHEA, UNSPECIFIED 03/30/2019 ANGIE KIRKPATRICK Ot Z79.4 USP (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 OF INSULIN 03/30/2019 ANGIE KIRKPATRICK Ot Z82.49 FAMILY HX OF ISCHEM HEART DIS AND OTH DI 03/30/2019 ANGIE KIRKPATRICK Ot Z88.8 ALLERGY STATUS TO OTH DRUG/MEDS/BIOL SUB Procedures Code Description [place] [address] A1C (IN-HOUSE) 01/07/2012 01509 ROUT INE VENIPUNCTURE 02/05/2012 59877 MICR O ALBUMIN-IN HOUSE 02/05/2012 96637 CMP 02/05/2012 [id number] GF R CALC (RESULT ONLY) 02/05/2012 34571 LIPI D PANEL 02/05/2012 46679 MICR OALBUMIN 02/06/2012 07671 SHERI V PSYTX 45/50 MIN 02/08/2012 93813 GLUCOSE 02/15/2012 40906 SHERI V PSYTX 45/50 MIN 02/15/2012 15399 SHERI V PSYTX 45/50 MIN 02/29/2012 44025 SHERI V PSYTX 45/50 MIN 03/14/2012 91926 US B REAST(S) ULTRASOUND, BOTH 04/06/2012 28937 SHERI V PSYTX 45/50 MIN 04/07/2012 66584 PSYT X PT&/FAMILY 45 MINUTES 04/07/2012 27651 MAMM OGRAM DX, LARRY 04/11/2012 26325 MAMM OGRAM, SCREENING 04/11/2012 48518 PSYT X PT&/FAMILY 45 MINUTES 04/11/2012 88838 PSYT X PT&/FAMILY 45 MINUTES 05/02/2012 63878 PSYT X PT&/FAMILY 45 MINUTES 05/06/2012 76447 PSYT X PT&/FAMILY 45 MINUTES 05/20/2012 99230 A1C (IN-HOUSE) 05/30/2012 07484 PSYT X PT&/FAMILY 45 MINUTES 06/22/2012 14779 PSYT X PT&/FAMILY 45 MINUTES 07/20/2012 78466 GLUC OSE FINGER STICK 08/05/2012 92293 MICR O ALBUMIN-IN HOUSE 08/25/2012 16534 A1C (IN-HOUSE) 08/25/2012 67853 MICR OALBUMIN 08/25/2012 04475 ROUT INE VENIPUNCTURE 08/26/2012 42640 CMP 08/26/2012 11428 LIPI D PANEL 08/26/2012 [id number] GF R CALC (RESULT ONLY) 08/26/2012 06542 CBC 08/26/2012 44164 PSYT X PT&/FAMILY 45 MINUTES 09/06/2012 79060 PSYT X PT&/FAMILY 30 MINUTES 11/10/2012 41597 PSYT X PT&/FAMILY 45 MINUTES 11/10/2012 30717 OXIMETRY 12/07/2012 57298 PSYT X PT&/FAMILY 45 MINUTES 12/22/2012 00659 PSYT X PT&/FAMILY 45 MINUTES 01/05/2013 21695 A1C (IN-HOUSE) 01/09/2013 21083 PSYT X PT&/FAMILY 45 MINUTES 03/08/2013 88317 MAMM OGRAM, SCREENING 03/09/2013 77144 PSYT X PT&/FAMILY 45 MINUTES 04/25/2013 29115 EXCI MATTHEW BENIGN LESION 0.6-1 cm (spcify location in [facility] description) 04/26/2013 34364 PSYT X PT&/FAMILY 45 MINUTES 05/05/2013 81929 PSYT X PT&/FAMILY 45 MINUTES 05/19/2013 63966 ROUT INE VENIPUNCTURE 06/05/2013 92888 A1C (IN-HOUSE) 06/05/2013 59336 UA L ROOSEVELT DIP 06/05/2013 52169 MICR O ALBUMIN-IN HOUSE 06/05/2013 07319 CBC 06/05/2013 76183 CMP 06/05/2013 07915 LIPI D PANEL 06/05/2013 52038 MICR OALBUMIN 06/05/2013 [id number] GF R CALC (RESULT ONLY) 06/05/2013 21572 LIPASE 06/05/2013 97237 PSYT X PT&/FAMILY 30 MINUTES 06/21/2013 53998 PSYT X PT&/FAMILY 45 MINUTES 06/27/2013 55395 PSYT X PT&/FAMILY 45 MINUTES 07/11/2013 85625 XRAY LUMBAR SPINE 2 OR 3 VIEWS 07/17/2013 31502 XRAY HIP LEFT UNILATERAL MIN 2 VIEWS 07/17/2013 93941 XRAY TIBULA FIBULA LEFT 07/17/2013 ORTHOPEDRhonda DERRELL MEAD 07/17/2013 81699 PSYT X PT&/FAMILY 45 MINUTES 08/02/2013 38529 MRI EXTREMITY, LOWER LEFT, W/O CONTRAST 08/17/2013 64041 PSYT X PT&/FAMILY 45 MINUTES 09/05/2013 36465 MRI SPINE (LUMBAR) W/O CONTRAST 09/11/2013 53215 A1C (IN-HOUSE) 09/11/2013 95559 PSYT X PT&/FAMILY 45 MINUTES 09/26/2013 57480 PSYT X PT&/FAMILY 45 MINUTES 10/09/2013 88582 PSYT X PT&/FAMILY 30 MINUTES 11/13/2013 16110 PSYT X PT&/FAMILY 30 MINUTES 12/21/2013 43032 PSYT X PT&/FAMILY 45 MINUTES 01/04/2014 16595 PSYT X PT&/FAMILY 45 MINUTES 02/01/2014 51836 A1C (IN-HOUSE) 02/12/2014 79794 MICR O ALBUMIN-IN HOUSE 02/12/2014 73039 PREG ANA TEST, URINE (IN- HOUSE) 02/12/2014 64135 MICR OALBUMIN 02/13/2014 30310 ROUT INE VENIPUNCTURE 02/15/2014 15162 PSYT X PT&/FAMILY 45 MINUTES 02/15/2014 54648 LIPI D PANEL 02/15/2014 34625 CBC 02/15/2014 68752 CMP 02/15/2014 [id number] GF R CALC (RESULT ONLY) 02/15/2014 37176 TSH 02/15/2014 31225 PREG ANA TEST, URINE (IN- HOUSE) 02/19/2014 31729 PSYT X PT&/FAMILY 45 MINUTES 03/08/2014 08256 PSYT X PT&/FAMILY 30 MINUTES 03/14/2014 31279 ROUT INE VENIPUNCTURE 03/20/2014 35186 CBC 03/20/2014 93274 MAGNESIUM 03/20/2014 42117 PSYT X PT&/FAMILY 45 MINUTES 04/10/2014 93892 PSYT X PT&/FAMILY 45 MINUTES 04/18/2014 16493 MAMM OGRAM, SCREENING 05/03/2014 36415 PSYT X PT&/FAMILY 30 MINUTES 05/08/2014 98737 A1C (IN-HOUSE) 06/26/2014 OPHTHALMO MARIO ZALDIVAR 07/16/2014 64862 PSYT X PT&/FAMILY 30 MINUTES 07/16/2014 Results Test Result Range Capillary blood glucose measurement by g lucometer (mass/volume) - 03/20/16 08:42 Capillary blood glucose measurement by glucometer (mas s/volume) 302 mg/dL 70-110 Complete urinalysis with reflex to cultu re - 06/02/16 11:55 Urine color determination YELLOW NRG Urine clarity determination VERY CLOUDY NRG Urine pH measurement by test strip 5 5-9 Specific gravity of urine by test strip 1.010 1.016-1.022 Urine protein assay by test strip, semi-quantitative 2+ NEGATIVE Urine glucose detection by automated test strip 4+ NEGATIVE Erythrocytes detection in urine sediment by light micr oscopy 5+ NEGATIVE Urine ketones detection by automated test strip 4+ NEGATIVE Urine nitrite detection by test strip POSITIVE NEGATIVE Urine total bilirubin detection by test strip NEGA TIVE NEGATIVE Urine urobilinogen measurement by automated test strip (mass/volume) NORMAL NORMAL Urine leukocyte esterase detection by dipstick 2+ NEGATIVE Automated urine sediment erythrocyte cou nt by microscopy (number/high power field) TNTC NRG Automated urine sediment leukocyte count by microscopy (number/high power field) [HPF] NRG Bacteria detection in urine sediment by light microsco py MODERATE NRG Squamous epithelial cells detection in u rine sediment by light microscopy NONE NRG Crystals detection in urine sediment by light microsco py NONE NRG Casts detection in urine sediment by light microscopy NONE NRG Mucus detection in urine sediment by light microscopy NEGATIVE NRG Complete urinalysis with reflex to culture YES NRG Bacterial urine culture - 06/02/16 11:55 Bacterial urine culture [id number] NRG COLONY COUNT <10,000 NRG FTX;REPORTABLE PLUS, NRG FREE TEXT ENTRY 2 MIXED GRAM POSITIVES <10,000/ML NRG Bacterial susceptibility panel - 7 11:55 Gentamicin susceptibility test by minimum inhibitory c oncentration <= NRG Trimethoprim/sulfamethoxazole susceptibi lity test by minimum inhibitoryconcentration <= NRG Ampicillin susceptibility test by minimum inhibitory c oncentration >= NRG Tobramycin susceptibility test by minimum inhibitory c oncentration <= NRG Cefazolin susceptibility test by minimum inhibitory co ncentration <= NRG Ceftriaxone susceptibility test by minimum inhibitory concentration <= NRG Ampicillin/sulbactam susceptibility test by minimum inhibitory concentration 16 NRG Piperacillin/tazobactam susceptibility t est by minimum inhibitory concentration <= NRG Ciprofloxacin susceptibility test by minimum inhibitor y concentration <= NRG Meropenem susceptibility test by minimum inhibitory co ncentration <= NRG Nitrofurantoin susceptibility test by mi nimum inhibitory concentration <= NRG Aztreonam susceptibility test by minimum inhibitory co ncentration <= NRG Extended spectrum beta lactamase (ESBL) producing bacteria susceptibility test by minimum inhibitory concentration - NRG Complete blood count (CBC) with automate d white blood cell (WBC) differential - 06/02/16 12:40 Blood leukocytes automated count (number/volume) 9.0 10*3/uL 4.3-11.0 Blood erythrocytes automated count (number/volume) 5.11 10*6/uL 4.35-5.85 Venous blood hemoglobin measurement (mass/volume) 14.6 g/dL 11.5-16.0 Blood hematocrit (volume fraction) 42 % 35-52 Automated erythrocyte mean corpuscular volume 82 [ foz_us] 80-99 Automated erythrocyte mean corpuscular h emoglobin (mass per erythrocyte) 29 pg 25-34 Automated erythrocyte mean corpuscular h emoglobin concentration measurement (mass/volume) 35 g/dL 32-36 Automated erythrocyte distribution width ratio 13. 3 % 10.0- 14.5 Automated blood platelet count (count/volume) 249 10*3/uL [...] 10*3 1.0-4.0 Blood monocytes automated count (number/volume) 0. 6 10*3 0.0-1.0 Automated eosinophil count 0.2 10*3/uL 0 .0-0.3 Automated blood basophil count (count/volume) 0.1 10*3/uL 0.0-0.1 Comprehensive metabolic panel - 06/02/16 12:40 Serum or plasma sodium measurement (moles/volume) 136 mmol/L 135-145 Serum or plasma potassium measurement (moles/volume) 4.0 mmol/L 3.6-5.0 Serum or plasma chloride measurement (moles/volume) 104 mmol/L 98-107 Carbon dioxide 18 mmol/L 21-32 Serum or plasma anion gap determination (moles/volume) 14 mmol/L 5-14 Serum or plasma urea nitrogen measurement (mass/volume ) 11 mg/dL 7-18 Serum or plasma creatinine measurement (mass/volume) 0.72 mg/dL 0.60-1.30 Serum or plasma urea nitrogen/creatinine mass ratio 15 NRG Serum or plasma creatinine measurement w ith calculation of estimated glomerular filtration rate > NRG Serum or plasma glucose measurement (mass/volume) 422 mg/dL 70-105 Serum or plasma calcium measurement (mass/volume) 9.0 mg/dL 8.5-10.1 Serum or plasma total bilirubin measurement (mass/volu me) 0.3 mg/dL 0.1-1.0 Serum or plasma alkaline phosphatase adrianna surement (enzymatic activity/volume) 106 U/L 40-136 Serum or plasma aspartate aminotransfera se measurement (enzymatic activity/volume) 15 U/L 5-34 Serum or plasma alanine aminotransferase measurement (enzymatic activity/volume) 22 U/L 0-55 Serum or plasma protein measurement (mass/volume) 7.3 g/dL 6.4-8.2 Serum or plasma albumin measurement (mass/volume) 3.9 g/dL 3.2-4.5 Serum or plasma amylase measurement (enz ymatic activity/volume) - 06/02/16 12:40 Serum or plasma amylase measurement (enzymatic activit y/volume) 13 U/L 25-125 Lipase - 06/02/16 12:40 Lipase 41 U/L 8-78 Complete blood count (CBC) with automate d white blood cell (WBC) differential - 06/11/17 13:45 Blood leukocytes automated count (number/volume) 12.1 10*3/uL 4.3-11.0 Blood erythrocytes automated count (number/volume) 5.29 10*6/uL 4.35-5.85 Venous blood hemoglobin measurement (mass/volume) 15.1 g/dL 11.5-16.0 Blood hematocrit (volume fraction) 43 % 35-52 Automated erythrocyte mean corpuscular volume 80 [ foz_us] 80-99 Automated erythrocyte mean corpuscular h emoglobin (mass per erythrocyte) 29 pg 25-34 Automated erythrocyte mean corpuscular h emoglobin concentration measurement (mass/volume) 36 g/dL 32-36 Automated erythrocyte distribution width ratio 13. 0 % 10.0- 14.5 Automated blood platelet count (count/volume) 279 10*3/uL [...] 10*3 1.0-4.0 Blood monocytes automated count (number/volume) 0. 8 10*3 0.0-1.0 Automated eosinophil count 0.0 10*3/uL 0 .0-0.3 Automated blood basophil count (count/volume) 0.1 10*3/uL 0.0-0.1 Comprehensive metabolic panel - 06/11/17 13:45 Serum or plasma sodium measurement (moles/volume) 137 mmol/L 135-145 Serum or plasma potassium measurement (moles/volume) 3.8 mmol/L 3.6-5.0 Serum or plasma chloride measurement (moles/volume) 102 mmol/L 98-107 Carbon dioxide 19 mmol/L 21-32 Serum or plasma anion gap determination (moles/volume) 16 mmol/L 5-14 Serum or plasma urea nitrogen measurement (mass/volume ) 6 mg/dL 7-18 Serum or plasma creatinine measurement (mass/volume) 0.59 mg/dL 0.60-1.30 Serum or plasma urea nitrogen/creatinine mass ratio 10 NRG Serum or plasma creatinine measurement w ith calculation of estimated glomerular filtration rate > NRG Serum or plasma glucose measurement (mass/volume) 223 mg/dL 70-105 Serum or plasma calcium measurement (mass/volume) 9.6 mg/dL 8.5-10.1 Serum or plasma total bilirubin measurement (mass/volu me) 0.8 mg/dL 0.1-1.0 Serum or plasma alkaline phosphatase adrianna surement (enzymatic activity/volume) 84 U/L 40-136 Serum or plasma aspartate aminotransfera se measurement (enzymatic activity/volume) 17 U/L 5-34 Serum or plasma alanine aminotransferase measurement (enzymatic activity/volume) 25 U/L 0-55 Serum or plasma protein measurement (mass/volume) 7.7 g/dL 6.4-8.2 Serum or plasma albumin measurement (mass/volume) 4.3 g/dL 3.2-4.5 Lipase - 06/11/17 13:45 Lipase 37 U/L 8-78 Serum or plasma C reactive protein measu rement (mass/volume) - 06/11/17 13:45 Serum or plasma C reactive protein measurement (mass/v olume) 2.06 mg/dL 0.00-0.50 Complete urinalysis with reflex to cultu re - 06/11/17 13:53 Urine color determination YELLOW NRG Urine clarity determination VERY CLOUDY NRG Urine pH measurement by test strip 8 5-9 Specific gravity of urine by test strip 1.010 1.016-1.022 Urine protein assay by test strip, semi-quantitative 3+ NEGATIVE Urine glucose detection by automated test strip 4+ NEGATIVE Erythrocytes detection in urine sediment by light micr oscopy 2+ NEGATIVE Urine ketones detection by automated test strip 4+ NEGATIVE Urine nitrite detection by test strip NEGATIVE NEGATIVE Urine total bilirubin detection by test strip NEGA TIVE NEGATIVE Urine urobilinogen measurement by automated test strip (mass/volume) NORMAL NORMAL Urine leukocyte esterase detection by dipstick 3+ NEGATIVE Automated urine sediment erythrocyte cou nt by microscopy (number/high power field) [HPF] NRG Automated urine sediment leukocyte count by microscopy (number/high power field) > [HPF] NRG Bacteria detection in urine sediment by light microsco py LARGE NRG Squamous epithelial cells detection in u rine sediment by light microscopy 10-25 NRG Crystals detection in urine sediment by light microsco py NONE NRG Casts detection in urine sediment by light microscopy NONE NRG Mucus detection in urine sediment by light microscopy NEGATIVE NRG Complete urinalysis with reflex to culture YES NRG Bacterial urine culture - 06/11/17 13:53 Bacterial urine culture [id number] NRG COLONY COUNT >100,000/ML NRG FTX;REPORTABLE SEE COMMENT NRG URINE CULTURE RESULTS PLUS NRG Bacterial susceptibility panel - 8 13:53 Gentamicin susceptibility test by minimum inhibitory c oncentration <= NRG Trimethoprim/sulfamethoxazole susceptibi lity test by minimum inhibitoryconcentration S NRG Ampicillin susceptibility test by minimum inhibitory c oncentration 4 NRG Tobramycin susceptibility test by minimum inhibitory c oncentration <= NRG Cefazolin susceptibility test by minimum inhibitory co ncentration <= NRG Ceftriaxone susceptibility test by minimum inhibitory concentration <= NRG Ampicillin/sulbactam susceptibility test by minimum inhibitory concentration <= NRG Piperacillin/tazobactam susceptibility t est by minimum inhibitory concentration S NRG Ciprofloxacin susceptibility test by minimum inhibitor y concentration <= NRG Meropenem susceptibility test by minimum inhibitory co ncentration <= NRG Nitrofurantoin susceptibility test by mi nimum inhibitory concentration <= NRG Aztreonam susceptibility test by minimum inhibitory co ncentration <= NRG Extended spectrum beta lactamase (ESBL) producing bacteria susceptibility test by minimum inhibitory concentration - NRG Blood lactic acid measurement (moles/vol ume) - 06/11/17 14:24 Blood lactic acid measurement (moles/volume) 1.88 mmol/L 0.50-2.00 Bacterial blood culture - 06/11/17 14:24 Bacterial blood culture NG NRG Bacterial blood culture - 06/11/17 14:53 Bacterial blood culture NG NRG Urine beta human chorionic gonadotropin (hCG) measurement - 10/02/17 11:07 Urine beta human chorionic gonadotropin (hCG) measurem ent NEGATIVE NEGATIVE Complete urinalysis with reflex to cultu re - 10/02/17 11:07 Urine color determination YELLOW NRG Urine clarity determination SLIGHTLY CLOUDY NRG Urine pH measurement by test strip 5 5-9 Specific gravity of urine by test strip 1.020 1.016-1.022 Urine protein assay by test strip, semi-quantitative 1+ NEGATIVE Urine glucose detection by automated test strip 4+ NEGATIVE Erythrocytes detection in urine sediment by light micr oscopy 4+ NEGATIVE Urine ketones detection by automated test strip 3+ NEGATIVE Urine nitrite detection by test strip NEGATIVE NEGATIVE Urine total bilirubin detection by test strip NEGA TIVE NEGATIVE Urine urobilinogen measurement by automated test strip (mass/volume) NORMAL NORMAL Urine leukocyte esterase detection by dipstick NEG ATIVE NEGATIVE Automated urine sediment erythrocyte cou nt by microscopy (number/high power field) [HPF] NRG Automated urine sediment leukocyte count by microscopy (number/high power field) [HPF] NRG Bacteria detection in urine sediment by light microsco py NEGATIVE NRG Squamous epithelial cells detection in u rine sediment by light microscopy 2-5 NRG Crystals detection in urine sediment by light microsco py NONE NRG Casts detection in urine sediment by light microscopy NONE NRG Mucus detection in urine sediment by light microscopy NEGATIVE NRG Complete urinalysis with reflex to culture NO NRG Yeast detection in urine sediment by light microscopy FEW NRG CBC - 12/08/17 09:14 WHITE BLOOD CELL COUNT 7.3 Thousand/uL 3 .8-10.8 RED BLOOD CELL COUNT 5.10 Million/uL 3.8 0-5.10 HEMOGLOBIN 14.6 g/dL 11.7-15.5 HEMATOCRIT 43.7 % 35.0-45.0 MCV 85.7 fL 80.0-100.0 MCH 28.6 pg 27.0-33.0 MCHC 33.4 g/dL 32.0-36.0 RDW 12.9 % 11.0-15.0 PLATELET COUNT 242 Thousand/uL 140-400 MPV 10.4 fL 7.5-12.5 ABSOLUTE NEUTROPHILS 4475 cells/uL 1500- 7800 ABSOLUTE LYMPHOCYTES 2124 cells/uL 850-3 900 ABSOLUTE MONOCYTES 489 cells/uL 200-950 ABSOLUTE EOSINOPHILS 110 cells/uL 15-500 ABSOLUTE BASOPHILS 102 cells/uL 0-200 NEUTROPHILS 61.3 % NRG LYMPHOCYTES 29.1 % NRG MONOCYTES 6.7 % NRG EOSINOPHILS 1.5 % NRG BASOPHILS 1.4 % NRG Complete blood count (CBC) with automate d white blood cell (WBC) differential - 03/17/18 09:40 Blood leukocytes automated count (number/volume) 11.9 10*3/uL 4.3-11.0 Blood erythrocytes automated count (number/volume) 5.44 10*6/uL 4.35-5.85 Venous blood hemoglobin measurement (mass/volume) 15.5 g/dL 11.5-16.0 Blood hematocrit (volume fraction) 45 % 35-52 Automated erythrocyte mean corpuscular volume 83 [ foz_us] 80-99 Automated erythrocyte mean corpuscular h emoglobin (mass per erythrocyte) 29 pg 25-34 Automated erythrocyte mean corpuscular h emoglobin concentration measurement (mass/volume) 35 g/dL 32-36 Automated erythrocyte distribution width ratio 13. 6 % 10.0- 14.5 Automated blood platelet count (count/volume) 316 10*3/uL [...] 10*3 1.0-4.0 Blood monocytes automated count (number/volume) 0. 6 10*3 0.0-1.0 Automated eosinophil count 0.0 10*3/uL 0 .0-0.3 Automated blood basophil count (count/volume) 0.1 10*3/uL 0.0-0.1 Comprehensive metabolic panel - 03/17/18 09:40 Serum or plasma sodium measurement (moles/volume) 138 mmol/L 135-145 Serum or plasma potassium measurement (moles/volume) 4.1 mmol/L 3.6-5.0 Serum or plasma chloride measurement (moles/volume) 105 mmol/L 98-107 Carbon dioxide 13 mmol/L 21-32 Serum or plasma anion gap determination (moles/volume) 20 mmol/L 5-14 Serum or plasma urea nitrogen measurement (mass/volume ) 21 mg/dL 7-18 Serum or plasma creatinine measurement (mass/volume) 0.74 mg/dL 0.60-1.30 Serum or plasma urea nitrogen/creatinine mass ratio 28 NRG Serum or plasma creatinine measurement w ith calculation of estimated glomerular filtration rate > NRG Serum or plasma glucose measurement (mass/volume) 348 mg/dL 70-105 Serum or plasma calcium measurement (mass/volume) 9.6 mg/dL 8.5-10.1 Serum or plasma total bilirubin measurement (mass/volu me) 0.4 mg/dL 0.1-1.0 Serum or plasma alkaline phosphatase adrianna surement (enzymatic activity/volume) 116 U/L 40-136 Serum or plasma aspartate aminotransfera se measurement (enzymatic activity/volume) 17 U/L 5-34 Serum or plasma alanine aminotransferase measurement (enzymatic activity/volume) 20 U/L 0-55 Serum or plasma protein measurement (mass/volume) 8.3 g/dL 6.4-8.2 Serum or plasma albumin measurement (mass/volume) 4.5 g/dL 3.2-4.5 CALCIUM CORRECTED 9.2 mg/dL 8.5-10.1 Magnesium - 03/17/18 09:40 Magnesium 2.1 mg/dL 1.8-2.4 Lipase - 03/17/18 09:40 Lipase 37 U/L 8-78 Complete urinalysis with reflex to cultu re - 03/17/18 10:01 Urine color determination YELLOW NRG Urine clarity determination CLEAR NR G Urine pH measurement by test strip 5 5-9 Specific gravity of urine by test strip 1.015 1.016-1.022 Urine protein assay by test strip, semi-quantitative NEGATIVE NEGATIVE Urine glucose detection by automated test strip 4+ NEGATIVE Erythrocytes detection in urine sediment by light micr oscopy NEGATIVE NEGATIVE Urine ketones detection by automated test strip 4+ NEGATIVE Urine nitrite detection by test strip NEGATIVE NEGATIVE Urine total bilirubin detection by test strip NEGA TIVE NEGATIVE Urine urobilinogen measurement by automated test strip (mass/volume) NORMAL NORMAL Urine leukocyte esterase detection by dipstick NEG ATIVE NEGATIVE Automated urine sediment erythrocyte cou nt by microscopy (number/high power field) [HPF] NRG Automated urine sediment leukocyte count by microscopy (number/high power field) NONE NRG Bacteria detection in urine sediment by light microsco py NEGATIVE NRG Squamous epithelial cells detection in u rine sediment by light microscopy 2-5 NRG Crystals detection in urine sediment by light microsco py NONE NRG Casts detection in urine sediment by light microscopy NONE NRG Mucus detection in urine sediment by light microscopy NEGATIVE NRG Complete urinalysis with reflex to culture NO NRG Capillary blood glucose measurement by g lucometer (mass/volume) - 03/17/18 11:47 Capillary blood glucose measurement by glucometer (mas s/volume) 197 mg/dL 70-110 Complete blood count (CBC) with automate d white blood cell (WBC) differential - 03/21/18 11:06 Blood leukocytes automated count (number/volume) 9.3 10*3/uL 4.3-11.0 Blood erythrocytes automated count (number/volume) 5.08 10*6/uL 4.35-5.85 Venous blood hemoglobin measurement (mass/volume) 14.4 g/dL 11.5-16.0 Blood hematocrit (volume fraction) 41 % 35-52 Automated erythrocyte mean corpuscular volume 81 [ foz_us] 80-99 Automated erythrocyte mean corpuscular h emoglobin (mass per erythrocyte) 28 pg 25-34 Automated erythrocyte mean corpuscular h emoglobin concentration measurement (mass/volume) 35 g/dL 32-36 Automated erythrocyte distribution width ratio 13. 6 % 10.0- 14.5 Automated blood platelet count (count/volume) 273 10*3/uL [...] 10*3 1.0-4.0 Blood monocytes automated count (number/volume) 0. 6 10*3 0.0-1.0 Automated eosinophil count 0.0 10*3/uL 0 .0-0.3 Automated blood basophil count (count/volume) 0.1 10*3/uL 0.0-0.1 Comprehensive metabolic panel - 03/21/18 11:06 Serum or plasma sodium measurement (moles/volume) 139 mmol/L 135-145 Serum or plasma potassium measurement (moles/volume) 3.8 mmol/L 3.6-5.0 Serum or plasma chloride measurement (moles/volume) 106 mmol/L 98-107 Carbon dioxide 19 mmol/L 21-32 Serum or plasma anion gap determination (moles/volume) 14 mmol/L 5-14 Serum or plasma urea nitrogen measurement (mass/volume ) 7 mg/dL 7-18 Serum or plasma creatinine measurement (mass/volume) 0.60 mg/dL 0.60-1.30 Serum or plasma urea nitrogen/creatinine mass ratio 12 NRG Serum or plasma creatinine measurement w ith calculation of estimated glomerular filtration rate > NRG Serum or plasma glucose measurement (mass/volume) 187 mg/dL 70-105 Serum or plasma calcium measurement (mass/volume) 9.1 mg/dL 8.5-10.1 Serum or plasma total bilirubin measurement (mass/volu me) 0.5 mg/dL 0.1-1.0 Serum or plasma alkaline phosphatase adrianna surement (enzymatic activity/volume) 87 U/L 40-136 Serum or plasma aspartate aminotransfera se measurement (enzymatic activity/volume) 15 U/L 5-34 Serum or plasma alanine aminotransferase measurement (enzymatic activity/volume) 19 U/L 0-55 Serum or plasma protein measurement (mass/volume) 7.4 g/dL 6.4-8.2 Serum or plasma albumin measurement (mass/volume) 4.1 g/dL 3.2-4.5 CALCIUM CORRECTED 9.0 mg/dL 8.5-10.1 Lipase - 03/21/18 11:06 Lipase 36 U/L 8-78 Capillary blood glucose measurement by g lucometer (mass/volume) - 03/21/18 11:10 Capillary blood glucose measurement by glucometer (mas s/volume) 183 mg/dL 70-110 Complete urinalysis with reflex to cultu re - 03/21/18 11:11 Urine color determination YELLOW NRG Urine clarity determination CLEAR NR G Urine pH measurement by test strip 5 5-9 Specific gravity of urine by test strip 1.025 1.016-1.022 Urine protein assay by test strip, semi-quantitative 3+ NEGATIVE Urine glucose detection by automated test strip 3+ NEGATIVE Erythrocytes detection in urine sediment by light micr oscopy 1+ NEGATIVE Urine ketones detection by automated test strip 3+ NEGATIVE Urine nitrite detection by test strip NEGATIVE NEGATIVE Urine total bilirubin detection by test strip NEGA TIVE NEGATIVE Urine urobilinogen measurement by automated test strip (mass/volume) NORMAL NORMAL Urine leukocyte esterase detection by dipstick NEG ATIVE NEGATIVE Automated urine sediment erythrocyte cou nt by microscopy (number/high power field) [HPF] NRG Automated urine sediment leukocyte count by microscopy (number/high power field) [HPF] NRG Bacteria detection in urine sediment by light microsco py MODERATE NRG Squamous epithelial cells detection in u rine sediment by light microscopy 10-25 NRG Crystals detection in urine sediment by light microsco py PRESENT NRG Casts detection in urine sediment by light microscopy NONE NRG Mucus detection in urine sediment by light microscopy SMALL NRG Complete urinalysis with reflex to culture YES NRG Amorphous sediment detection in urine sediment by ligh t microscopy FEW ES URATES NRG Bacterial urine culture - 03/21/18 11:11 Bacterial urine culture [id number] NRG COLONY COUNT <10,000 NRG FTX;REPORTABLE PREDOMINANCE OF NRG PDM - ATS (PROFILE 8 WITH CONFIRMATION) - 07/05/18 15:38 Prescribed Drug 1 Ativan(TM) NRG Creatinine 67.4 mg/dL > or = 20.0 pH 5.94 4.5 - 9.0 Oxidant NEGATIVE mcg/mL <200 Amphetamines NEGATIVE ng/mL <500 medMATCH Amphetamines CONSISTENT NRG Benzodiazepines POSITIVE ng/mL <100 Marijuana Metabolite NEGATIVE ng/mL <20 medMATCH Marijuana Metab CONSISTENT NRG Cocaine Metabolite NEGATIVE ng/mL <150 medMATCH Cocaine Metab CONSISTENT NRG Opiates NEGATIVE ng/mL <100 medMATCH Opiates CONSISTENT NRG Oxycodone NEGATIVE ng/mL <100 medMATCH Oxycodone CONSISTENT NRG COMMENT NRG Buprenorphine NEGATIVE ng/mL <5 MDMA NEGATIVE ng/mL <500 medMATCH MDMA CONSISTENT NRG Alcohol Metabolites NEGATIVE ng/mL <500 medMATCH Alcohol Metab CONSISTENT NRG 6 Acetylmorphine NEGATIVE ng/mL <10 medMATCH 6 Acetylmorphine CONSISTENT NR G Alphahydroxyalprazolam NEGATIVE ng/mL <25 medMATCH aOH alprazolam CONSISTENT NRG Alphahydroxymidazolam NEGATIVE ng/mL < 50 medMATCH aOH midazolam CONSISTENT NRG Alphahydroxytriazolam NEGATIVE ng/mL < 50 medMATCH aOH triazolam CONSISTENT NRG Aminoclonazepam NEGATIVE ng/mL <25 medMATCH Aminoclonazepam CONSISTENT NRG Hydroxyethylflurazepam NEGATIVE ng/mL <50 medMATCH OH,Et flurazepam CONSISTENT NR G Lorazepam 83 ng/mL <50 medMATCH Lorazepam CONSISTENT NRG Nordiazepam NEGATIVE ng/mL <50 medMATCH Nordiazepam CONSISTENT NRG Oxazepam NEGATIVE ng/mL <50 medMATCH Oxazepam CONSISTENT NRG Temazepam NEGATIVE ng/mL <50 medMATCH Temazepam CONSISTENT NRG medMATCH Buprenorphine CONSISTENT NRG CULTURE, URINE - 11/24/18 14:44 CULTURE, URINE, ROUTINE SEE NOTE NRG CBC - 11/30/18 16:25 WHITE BLOOD CELL COUNT 9.2 Thousand/uL 3 .8-10.8 RED BLOOD CELL COUNT 4.89 Million/uL 3.8 0-5.10 HEMOGLOBIN 13.8 g/dL 11.7-15.5 HEMATOCRIT 43.1 % 35.0-45.0 MCV 88.1 fL 80.0-100.0 MCH 28.2 pg 27.0-33.0 MCHC 32.0 g/dL 32.0-36.0 RDW 13.5 % 11.0-15.0 PLATELET COUNT 231 Thousand/uL 140-400 MPV 10.2 fL 7.5-12.5 ABSOLUTE NEUTROPHILS 5667 cells/uL 1500- 7800 ABSOLUTE LYMPHOCYTES 2677 cells/uL 850-3 900 ABSOLUTE MONOCYTES 626 cells/uL 200-950 ABSOLUTE EOSINOPHILS 129 cells/uL 15-500 ABSOLUTE BASOPHILS 101 cells/uL 0-200 NEUTROPHILS 61.6 % NRG LYMPHOCYTES 29.1 % NRG MONOCYTES 6.8 % NRG EOSINOPHILS 1.4 % NRG BASOPHILS 1.1 % NRG Capillary blood glucose measurement by g lucometer (mass/volume) - 01/21/19 17:16 Capillary blood glucose measurement by glucometer (mas s/volume) 402 mg/dL 70-110 Complete urinalysis with reflex to cultu re - 01/21/19 17:38 Urine color determination YELLOW NRG Urine clarity determination SLIGHTLY CLOUDY NRG Urine pH measurement by test strip 5 5-9 Specific gravity of urine by test strip 1.015 1.016-1.022 Urine protein assay by test strip, semi-quantitative NEGATIVE NEGATIVE Urine glucose detection by automated test strip 4+ NEGATIVE Erythrocytes detection in urine sediment by light micr oscopy 1+ NEGATIVE Urine ketones detection by automated test strip NE GATIVE NEGATIVE Urine nitrite detection by test strip NEGATIVE NEGATIVE Urine total bilirubin detection by test strip NEGA TIVE NEGATIVE Urine urobilinogen measurement by automated test strip (mass/volume) NORMAL NORMAL Urine leukocyte esterase detection by dipstick 1+ NEGATIVE Automated urine sediment erythrocyte cou nt by microscopy (number/high power field) NONE NRG Automated urine sediment leukocyte count by microscopy (number/high power field) [HPF] NRG Bacteria detection in urine sediment by light microsco py FEW NRG Squamous epithelial cells detection in u rine sediment by light microscopy 5-10 NRG Crystals detection in urine sediment by light microsco py NONE NRG Casts detection in urine sediment by light microscopy NONE NRG Mucus detection in urine sediment by light microscopy NEGATIVE NRG Complete urinalysis with reflex to culture YES NRG Bacterial urine culture - 01/21/19 17:38 Bacterial urine culture UMSF NRG COLONY COUNT <10,000 NRG FTX;REPORTABLE NO SUSCEPTIBILITIES SET UP NRG Complete blood count (CBC) with automate d white blood cell (WBC) differential - 01/21/19 17:47 Blood leukocytes automated count (number/volume) 9.3 10*3/uL 4.3-11.0 Blood erythrocytes automated count (number/volume) 5.01 10*6/uL 4.35-5.85 Venous blood hemoglobin measurement (mass/volume) 14.2 g/dL 11.5-16.0 Blood hematocrit (volume fraction) 42 % 35-52 Automated erythrocyte mean corpuscular volume 84 [ foz_us] 80-99 Automated erythrocyte mean corpuscular h emoglobin (mass per erythrocyte) 28 pg 25-34 Automated erythrocyte mean corpuscular h emoglobin concentration measurement (mass/volume) 34 g/dL 32-36 Automated erythrocyte distribution width ratio 13. 1 % 10.0- 14.5 Automated blood platelet count (count/volume) 291 10*3/uL 130-400 Automated blood platelet mean volume measurement 9.8 [foz_us] 7.4-10.4 Automated blood neutrophils/100 leukocytes 64 % 42-75 Automated blood lymphocytes/100 leukocytes 28 % 12-44 Blood monocytes/100 leukocytes 6 % 0-12 Automated blood eosinophils/100 leukocytes 1 % 0-10 Automated blood basophils/100 leukocytes 1 % 0-10 Blood neutrophils automated count (number/volume) 6.0 10*3 1.8-7.8 Blood lymphocytes automated count (number/volume) 2.6 10*3 1.0-4.0 Blood monocytes automated count (number/volume) 0. 5 10*3 0.0-1.0 Automated eosinophil count 0.1 10*3/uL 0 .0-0.3 Automated blood basophil count (count/volume) 0.1 10*3/uL 0.0-0.1 Comprehensive metabolic panel - 01/21/19 17:47 Serum or plasma sodium measurement (moles/volume) 139 mmol/L 135-145 Serum or plasma potassium measurement (moles/volume) 3.8 mmol/L 3.6-5.0 Serum or plasma chloride measurement (moles/volume) 103 mmol/L 98-107 Carbon dioxide 18 mmol/L 21-32 Serum or plasma anion gap determination (moles/volume) 18 mmol/L 5-14 Serum or plasma urea nitrogen measurement (mass/volume ) 11 mg/dL 7-18 Serum or plasma creatinine measurement (mass/volume) 0.73 mg/dL 0.60-1.30 Serum or plasma urea nitrogen/creatinine mass ratio 15 NRG Serum or plasma creatinine measurement w ith calculation of estimated glomerular filtration rate > NRG Serum or plasma glucose measurement (mass/volume) 343 mg/dL 70-105 Serum or plasma calcium measurement (mass/volume) 10.3 mg/dL 8.5-10.1 Serum or plasma total bilirubin measurement (mass/volu me) 0.3 mg/dL 0.1-1.0 Serum or plasma alkaline phosphatase adrianna surement (enzymatic activity/volume) 88 U/L 40-136 Serum or plasma aspartate aminotransfera se measurement (enzymatic activity/volume) 15 U/L 5-34 Serum or plasma alanine aminotransferase measurement (enzymatic activity/volume) 21 U/L 0-55 Serum or plasma protein measurement (mass/volume) 8.0 g/dL 6.4-8.2 Serum or plasma albumin measurement (mass/volume) 4.2 g/dL 3.2-4.5 CALCIUM CORRECTED 10.1 mg/dL 8.5-10.1 Beta-hydroxybutyric acid measurement - 1 17:47 Beta-hydroxybutyric acid measurement 0.11 mmol/L 0.00-0.27 Capillary blood glucose measurement by g lucometer (mass/volume) - 01/21/19 18:49 Capillary blood glucose measurement by glucometer (mas s/volume) 131 mg/dL 70-110 Influenza virus A and B antigen detectio n - 03/26/19 14:34 FLU RESULT NEGATIVE FOR INFLUENZA A AND B ANTIGENS BY IA NR Complete blood count (CBC) with automate d white blood cell (WBC) differential - 06/22/19 18:17 Blood leukocytes automated count (number/volume) 10.9 10*3/uL 4.3-11.0 Blood erythrocytes automated count (number/volume) 5.44 10*6/uL 4.35-5.85 Venous blood hemoglobin measurement (mass/volume) 15.5 g/dL 11.5-16.0 Blood hematocrit (volume fraction) 45 % 35-52 Automated erythrocyte mean corpuscular volume 82 [ foz_us] 80-99 Automated erythrocyte mean corpuscular h emoglobin (mass per erythrocyte) 29 pg 25-34 Automated erythrocyte mean corpuscular h emoglobin concentration measurement (mass/volume) 35 g/dL 32-36 Automated erythrocyte distribution width ratio 14. 2 % 10.0- 14.5 Automated blood platelet count (count/volume) 297 10*3/uL 130-400 Automated blood platelet mean volume measurement 9.9 [foz_us] 7.4-10.4 Automated blood neutrophils/100 leukocytes 72 % 42-75 Automated blood lymphocytes/100 leukocytes 20 % 12-44 Blood monocytes/100 leukocytes 8 % 0-12 Automated blood eosinophils/100 leukocytes 1 % 0-10 Automated blood basophils/100 leukocytes 0 % 0-10 Blood neutrophils automated count (number/volume) 7.9 10*3 1.8-7.8 Blood lymphocytes automated count (number/volume) 2.1 10*3 1.0-4.0 Blood monocytes automated count (number/volume) 0. 8 10*3 0.0-1.0 Automated eosinophil count 0.1 10*3/uL 0 .0-0.3 Automated blood basophil count (count/volume) 0.0 10*3/uL 0.0-0.1 Comprehensive metabolic panel - 06/22/19 18:17 Serum or plasma sodium measurement (moles/volume) 136 mmol/L 135-145 Serum or plasma potassium measurement (moles/volume) 3.7 mmol/L 3.6-5.0 Serum or plasma chloride measurement (moles/volume) 101 mmol/L 98-107 Carbon dioxide 17 mmol/L 21-32 Serum or plasma anion gap determination (moles/volume) 18 mmol/L 5-14 Serum or plasma urea nitrogen measurement (mass/volume ) 9 mg/dL 7-18 Serum or plasma creatinine measurement (mass/volume) 0.72 mg/dL 0.60-1.30 Serum or plasma urea nitrogen/creatinine mass ratio 13 NRG Serum or plasma creatinine measurement w ith calculation of estimated glomerular filtration rate > NRG Serum or plasma glucose measurement (mass/volume) 307 mg/dL 70-105 Serum or plasma calcium measurement (mass/volume) 9.8 mg/dL 8.5-10.1 Serum or plasma total bilirubin measurement (mass/volu me) 0.5 mg/dL 0.1-1.0 Serum or plasma alkaline phosphatase adrianna surement (enzymatic activity/volume) 83 U/L 40-136 Serum or plasma aspartate aminotransfera se measurement (enzymatic activity/volume) 20 U/L 5-34 Serum or plasma alanine aminotransferase measurement (enzymatic activity/volume) 25 U/L 0-55 Serum or plasma protein measurement (mass/volume) 8.1 g/dL 6.4-8.2 Serum or plasma albumin measurement (mass/volume) 4.4 g/dL 3.2-4.5 CALCIUM CORRECTED 9.5 mg/dL 8.5-10.1 Lipase - 06/22/19 18:17 Lipase 18 U/L 8-78 Complete urinalysis with reflex to cultu re - 06/22/19 18:32 Urine color determination YELLOW NRG Urine clarity determination CLEAR NR G Urine pH measurement by test strip 6.0 5-9 Specific gravity of urine by test strip 1.025 1.016-1.022 Urine protein assay by test strip, semi-quantitative 2+ NEGATIVE Urine glucose detection by automated test strip TR ALEXIS NEGATIVE Erythrocytes detection in urine sediment by light micr oscopy TRACE-I NEGATIVE Urine ketones detection by automated test strip 3+ NEGATIVE Urine nitrite detection by test strip NEGATIVE NEGATIVE Urine total bilirubin detection by test strip 1+ NEGATIVE Urine urobilinogen measurement by automated test strip (mass/volume) 0.2 mg/dL < = 1.0 Urine leukocyte esterase detection by dipstick 1+ NEGATIVE Automated urine sediment erythrocyte cou nt by microscopy (number/high power field) [HPF] NRG Automated urine sediment leukocyte count by microscopy (number/high power field) [HPF] NRG Bacteria detection in urine sediment by light microsco py TRACE NRG Squamous epithelial cells detection in u rine sediment by light microscopy 0-2 NRG Crystals detection in urine sediment by light microsco py NONE NRG Casts detection in urine sediment by light microscopy PRESENT NRG Mucus detection in urine sediment by light microscopy NEGATIVE NRG Complete urinalysis with reflex to culture YES NRG Hyaline casts detection in urine sediment by light annemarie roscopy RARE NRG Encounters ACCT No. Visit Date/Time Discharge Status Pt. Type Provider Facility Loc./Unit Complaint [id number] 06/15/2019 13:30:00 06/15/2019 23:59:5 9 CLS Outpatient BEVERLY TAO APRN [facility] [id number] 11/30/2018 15:50:00 Document Registration [id number] 11/24/2018 14:25:00 Document Registration [id number] 07/05/2018 15:00:00 Document Registration [id number] 12/08/2017 09:00:00 Document Registration [id number] 03/26/2019 13:23:00 15:47:00 DIS Emergency ANGIE KIRKPATRICK [facility] COUGH/CONGESTION/DIARR HEA [id number] 01/21/2019 17:02:00 18:57:00 DIS Outpatient SOCO JOAQUIN APRN [facility] HIGH BLOOD SUGAR [id number] 07/08/2018 15:24:00 23:59:59 CLS Outpatient JERMAINE LUDWIG APRN [facility] RAD SCREENING [id number] 06/14/2018 14:01:00 15:17:00 DIS Emergency SOCO JOAQUIN APRN [facility] ER COUGH CONGESTED EAR WAGNER N [id number] 03/21/2018 10:25:00 12:29:00 DIS Emergency SOCO JOAQUIN APRN [facility] ER LOW BLOOD SUGAR- 133/NA USEA [id number] 03/17/2018 09:20:00 018 11:56:00 DIS Emergency KEYONNA RICO MD [facility] ER NAUSEA,WEAKNESS [id number] 10/02/2017 09:09:00 018 12:35:00 DIS Emergency MYAH OLIVAS MD [facility] ER DIARRHEA SINCE WEDNESDAY [id number] 09/01/2017 18:29:00 018 18:45:00 DIS Outpatient ANTONIETTA DO, MAR K V [facility] ER TEETH/GUM PROBLEMS R SI DE [id number] 06/14/2017 21:55:00 018 22:20:00 DIS Outpatient SOCO JOAQUIN APRN [facility] ER R SIDE BACK RASH [id number] 06/11/2017 13:20:00 018 17:28:00 DIS Emergency ANGIE KIRKPATRICK [facility] VOMITING,ABD PAIN,WEAK [id number] 05/13/2017 01:26:00 018 01:37:00 DIS Emergency LOREN GAYLE, DELMA Quintana [facility] ER LEFT EAR PAIN-B UG WAS IN EAR-HURTS [id number] 10/28/2016 08:54:00 017 09:50:00 DIS Outpatient BEVERLY TAO [facility] REHAB BULGING DISC L3-4 L4-5 [id number] 08/14/2016 10:19:00 017 11:53:00 DIS Emergency SOCO JOAQUIN APRN [facility] ER BACK/LEG PAIN [id number] 06/25/2016 11:01:00 017 09:25:00 DIS Outpatient ZEHRA SINHA MD [facility] REHAB LUMBAGO [id number] 06/02/2016 11:47:00 017 13:30:00 DIS Emergency SOCO JOAQUIN APRN [facility] ER UPPER ABD PAIN [id number] 05/22/2016 10:19:00 017 23:59:59 CLS Outpatient BEVERLY TAO [facility] RAD SCREENING [id number] 05/01/2016 13:15:00 017 14:15:00 DIS Outpatient ZEHRA SINHA MD [facility] REHAB LUMBAGO [id number] 03/20/2016 08:18:00 016 09:14:00 DIS Outpatient ZEHRA SINHA MD [facility] CARD M51.16 [id number] 2016 15:06:00 16:06:00 DIS Emergency 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 [facility] ER SHOULDER PAIN [id number] 12/04/2015 11:00:00 016 23:59:59 CLS Outpatient ZEHRA SINHA MD [facility] RAD LOW BACK PAIN [id number] 11/12/2015 14:29:00 016 16:16:00 DIS Emergency ANGIE KIRKPATRICK [facility] BACK PAIN [id number] 08/23/2015 10:08:00 016 11:46:00 DIS Outpatient ZEHRA SINHA MD [facility] CARD DISC DISORDER [id number] 06/06/2015 20:35:00 016 21:53:00 DIS Emergency ANGIE KIRKPATRICK [facility] ER POSSIBLE ALLERGIC REAC TION [id number] 05/15/2015 10:07:00 016 23:59:59 CLS Outpatient BEVERLY TAO [facility] RAD [id number] 10/13/2014 19:11:00 015 19:59:00 DIS Emergency TYREE HENNESSY MD [facility] ER [id number] 09/19/2014 13:26:00 015 14:05:00 DIS Outpatient DELMA DUFFY [facility] REHAB BACK PAIN/RADICULOPATHY [id number] 05/15/2014 09:00:00 015 23:59:59 CLS Outpatient ROXANNA, CATALINA A CHURCH WORKER [facility] RAD [id number] 03/17/2014 11:29:00 014 14:40:00 DIS Emergency DELMA PIMENTEL MD [facility] ER [id number] 01/15/2014 14:12:00 014 23:59:59 CLS Outpatient ZEHRA SINHA MD [facility] CARD [id number] 12/18/2013 14:14:00 014 15:11:00 DIS Outpatient ZEHRA SINHA MD [facility] CARD [id number] 11/20/2013 13:10:00 23:59:59 CLS Outpatient ZEHRA SINHA MD [facility] CARD [id number] 10/28/2013 11:22:00 014 11:58:00 DIS Emergency 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 [facility] ER [id number] 09/25/2013 08:55:00 23:59:59 CLS Outpatient BEVERLY TAO UPSETTER [facility] RAD [id number] 08/28/2013 08:04:00 23:59:59 CLS Outpatient DERRELL MEAD UPSETTER [facility] RAD [id number] 07/12/2013 13:45:00 14:38:00 DIS Emergency 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 CHURCH 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 [facility] ER [id number] 03/28/2013 12:43:00 23:59:59 CLS Outpatient CHONG HORTON UPSETTER [facility] RT BREAST PAIN [id number] 09/15/2012 12:06:00 15:15:00 DIS Emergency MATTHEW GAYLE, BERNY Mendoza [facility] ER LEFT LEG/FOOT PAIN [id number] 06/22/2019 18:26:00 Document Registration [id number] 04/07/2012 14:25:00 Document Registration [id number] 01/25/2012 12:35:00 Document Registration [id number] 06/10/2011 14:07:00 Document Registration [id number] 06/05/2011 09:06:00 Document Registration [id number] 04/15/2011 21:55:00 Document Registration [id number] 07/09/2010 21:31:00 Document Registration [id number] 07/16/2014 12:51:00 07/16/2014 23:59: 59 CLS Outpatient ARIAN US PSYD [id number] 06/05/2014 10:16:00 06/05/2014 23:59: 59 CLS Outpatient ARIAN US PSYD L [id number] 05/08/2014 10:38:00 05/08/2014 23:59: 59 CLS Outpatient ARIAN US PSYD [id number] 05/03/2014 15:40:00 05/03/2014 23:59: 59 CLS Outpatient ROXANNACATALINA Solitario APRN [id number] 04/18/2014 08:38:00 04/18/2014 23:59: 59 CLS Outpatient ARIAN US PSYD [id number] 04/10/2014 10:26:00 04/10/2014 23:59: 59 CLS Outpatient ARIAN US PSYD [id number] 03/20/2014 14:34:00 03/20/2014 23:59: 59 CLS Outpatient BEVERLY TAO APRN [id number] 03/14/2014 16:06:00 03/14/2014 23:59: 59 CLS Outpatient ARIAN US PSYD [id number] 03/08/2014 08:16:00 03/08/2014 23:59: 59 CLS Outpatient ARIAN US PSYD L [id number] 02/20/2014 12:44:00 02/20/2014 23:59: 59 CLS Outpatient JAVAD DAMON APRN [id number] 02/19/2014 15:05:00 02/19/2014 23:59: 59 CLS Outpatient CATALINA MCKNIGHT APRN [id number] 02/15/2014 08:52:00 02/15/2014 23:59: 59 CLS Outpatient BEVERLY TAO APRN [id number] 02/01/2014 13:41:00 02/01/2014 23:59: 59 CLS Outpatient ARIAN US PSYD [id number] 01/04/2014 10:49:00 01/04/2014 23:59: 59 CLS Outpatient ARIAN US PSYD [id number] 12/21/2013 10:30:00 12/21/2013 23:59: 59 CLS Outpatient ARIAN US PSYD [id number] 11/30/2013 17:09:00 11/30/2013 23:59: 59 CLS Outpatient BEVERLY TAO APRN [id number] 11/21/2013 12:44:00 11/21/2013 23:59: 59 CLS Outpatient NELSON JAVAD OCONNOR [id number] 11/21/2013 12:44:00 11/21/2013 23:59: 59 CLS Outpatient NELSON JAVAD OCONNOR [id number] 11/13/2013 12:34:00 11/13/2013 23:59: 59 CLS Outpatient ARIAN US PSYD [id number] 10/26/2013 12:58:00 10/26/2013 23:59: 59 CLS Outpatient BEVERLY TAO APRN [id number] 10/09/2013 12:45:00 10/09/2013 23:59: 59 CLS Outpatient ARIAN US PSYD [id number] 09/25/2013 13:15:00 09/25/2013 23:59: 59 CLS Outpatient ARIAN US PSYD [id number] 09/11/2013 12:15:00 09/11/2013 23:59: 59 CLS Outpatient BEVERLY TAO APRN Nick [id number] 09/04/2013 12:39:00 09/04/2013 23:59: 59 CLS Outpatient ARIAN US PSYD [id number] 08/22/2013 14:36:00 08/22/2013 23:59: 59 CLS Outpatient LOUISE COBOS MD [id number] 08/17/2013 15:36:00 08/17/2013 23:59: 59 CLS Outpatient LUCIANO WILLARD DO [id number] 08/01/2013 13:44:00 08/01/2013 23:59: 59 CLS Outpatient ARIAN US PSYD [id number] 07/17/2013 10:27:00 07/17/2013 23:59: 59 CLS Outpatient BEVERLY TAO APRN [id number] 07/11/2013 13:05:00 07/11/2013 23:59: 59 CLS Outpatient ARIAN US PSYD [id number] 06/27/2013 13:07:00 06/27/2013 23:59: 59 CLS Outpatient ARIAN US PSYD [id number] 06/21/2013 16:35:00 06/21/2013 23:59: 59 CLS Outpatient ARIAN US PSYD [id number] 06/06/2013 12:44:00 06/06/2013 23:59: 59 CLS Outpatient JERMAINE FERRER APRN [id number] 06/05/2013 08:29:00 06/05/2013 23:59: 59 CLS Outpatient LOUISE COBOS MD [id number] 05/19/2013 12:44:00 05/19/2013 23:59: 59 CLS Outpatient ARIAN US PSYD [id number] 05/05/2013 12:45:00 05/05/2013 23:59: 59 CLS Outpatient ARIAN US PSYD [id number] 05/03/2013 14:18:00 05/03/2013 23:59: 59 CLS Outpatient HARLEEN LOU APRN [id number] 04/25/2013 15:33:00 04/25/2013 23:59: 59 CLS Outpatient HARLEEN LOU APRN [id number] 04/21/2013 12:55:00 04/21/2013 23:59: 59 CLS Outpatient ARIAN US PSYD [id number] 03/28/2013 15:28:00 03/28/2013 23:59: 59 CLS Outpatient BEVERLY TAO APRN [id number] 03/09/2013 15:35:00 03/09/2013 23:59: 59 CLS Outpatient CATALINA MCKNIGHT APRN [id number] 03/06/2013 13:00:00 03/06/2013 23:59: 59 CLS Outpatient ARIAN US PSYD [id number] 03/02/2013 11:33:00 03/02/2013 23:59: 59 CLS Outpatient JERMAINE FERRER APRN [id number] 03/02/2013 11:33:00 03/02/2013 23:59: 59 CLS Outpatient JERMAINE FERRER APRN Yisel [id number] 01/11/2013 13:50:00 01/11/2013 23:59: 59 CLS Outpatient LUCIANO WILLARD DO [id number] 01/05/2013 15:37:00 01/05/2013 23:59: 59 CLS Outpatient ARIAN US PSYD [id number] 12/16/2012 10:54:00 12/16/2012 23:59: 59 CLS Outpatient ARIAN US PSYD [id number] 06/21/2012 12:53:00 06/21/2012 23:59: 59 CLS Outpatient [id number] 06/09/2012 12:38:00 06/09/2012 23:59: 59 CLS Outpatient [id number] 05/30/2012 14:42:00 05/30/2012 23:59: 59 CLS Outpatient [id number] 05/20/2012 10:48:00 05/20/2012 23:59: 59 CLS Outpatient ARIAN US PSYD [id number] 05/06/2012 10:52:00 05/06/2012 23:59: 59 CLS Outpatient [id number] 04/26/2012 12:48:00 04/26/2012 23:59: 59 CLS Outpatient ARIAN US PSYD [id number] 04/11/2012 12:42:00 04/11/2012 23:59: 59 CLS Outpatient ARIAN US PSYD [id number] 04/06/2012 13:34:00 04/06/2012 23:59: 59 CLS Outpatient BEVERLY TAO APRN [id number] 03/31/2012 11:04:00 03/31/2012 23:59: 59 CLS Outpatient [id number] 03/14/2012 12:46:00 03/14/2012 23:59: 59 CLS Outpatient [id number] 02/29/2012 12:45:00 02/29/2012 23:59: 59 CLS Outpatient [id number] 01/27/2012 10:14:02 01/27/2012 23:59:5 9 CLS Outpatient ARIAN US PSYD [id number] 12/08/2012 10:45:00 Document Registration [id number] 12/07/2012 09:39:00 Document Registration [id number] 12/01/2012 11:35:00 Document Registration [id number] 11/10/2012 14:46:00 Document Registration [id number] 10/29/2012 13:36:00 Document Registration [id number] 09/13/2012 09:57:00 Document Registration [id number] 09/06/2012 13:33:00 Document Registration [id number] 08/26/2012 09:17:00 Document Registration [id number] 08/08/2012 10:43:00 Document Registration [id number] 08/05/2012 14:59:00 Document Registration [id number] 07/19/2012 12:55:00 Document Registration
== END 2019-06-22 19:22 | disposition home or self-care (01) ==
LOC: EDUNIT# 18:06 → ER 18:08
DX: R11.2 Nausea with vomiting, unspecified (principal); R19.7 Diarrhea, unspecified; J45.909 Unspecified asthma, uncomplicated; E78.00 Pure hypercholesterolemia, unspecified; E11.9 Type 2 diabetes mellitus without complications; Z79.4 Long term (current) use of insulin; F41.9 Anxiety disorder, unspecified; F31.9 Bipolar disorder, unspecified; F60.9 Personality disorder, unspecified
CPT/HCPCS: 36415; 80053; 81000; 83690; 85025; 87077; 87088

== ENCOUNTER 2019-08-08 18:51 | Emergency (ER) | payer SELFPAY ==
[~2019-08-08] VITALS: Ht 170 cm; Wt 91.0 kg
[~2019-08-08 18:51] MED LIST changes: +DULA1.5P2 SQ; +LORA-405 SL
--- NOTE | 2019-08-08 19:08 | ED Cardiac General ---
History of Present Illness General Stated Complaint: HIGH BP AND RACING HEART Source: patient Exam Limitations: no limitations History of Present Illness Date Seen by Provider: August 08, 2019 Time Seen by Provider: 19:06 Initial Comments To ER by private vehicle with reports of a 2 to three-day history of a heart rate as high as 140 and high blood pressure. This is despite her fairly new prescription for metoprolol 25 mg daily. She denies chest pain or shortness of breath. Denies fevers chills or cough. Timing/Duration: 1-2 days Severity: moderate Activities at Onset: none NTG SL FIREBREAK CUTTER: No ASA po FIREBREAK CUTTER: No Allergies and Home Medications Allergies Coded Allergies: azithromycin (Unverified Allergy, Unknown, 10/28/13) CHEST PAIN prednisone (Unverified Adverse Reaction, Unknown, RAISES BLOOD SUGAR, 10/28/13) Home Medications Albuterol Sulfate 18 Gm Hfa.aer.ad, 1-2 PUFF INH QID PRN for WHEEZING Prescribed by: ANGIE MAS on 03/26/19 1537 Citalopram Hydrobromide 20 Mg Tablet, 1 EACH PO BID, (Reported) Dulaglutide 1.5 Mg/0.5 Ml Pen.injctr, 1.5 MG SQ WEEK, (Reported) Hum Insulin Nph/Reg Insulin Hm 10 Ml Vial, 110 UNITS SQ BID, (Reported) Lamotrigine 150 Mg Tablet, 300 MG PO DAILY, (Reported) Lorazepam 1 Mg Tablet, 1 MG SL DAILY PRN PRN for ANXIETY, (Reported) Losartan Potassium 25 Mg Tablet, 1 EACH PO BID, (Reported) Promethazine HCl 25 Mg Tablet, 25 MG PO TID PRN for NAUSEA/VOMITING Prescribed by: SOCO JOAQUIN on 06/22/19 1831 Simvastatin 40 Mg Tablet, 2 TAB PO DAILY, (Reported) Patient Home Medication List Home Medication List Reviewed: Yes Review of Systems Review of Systems Constitutional: see HPI, diaphoresis EENTM: No Symptoms Reported Respiratory: No Symptoms Reported Cardiovascular: See HPI, Palpitations Gastrointestinal: See HPI Genitourinary: No Symptoms Reported Musculoskeletal: no symptoms reported Skin: no symptoms reported Psychiatric/Neurological: No Symptoms Reported Endocrine: No Symptoms Reported Hematologic/Lymphatic: No Symptoms Reported Past Sksqugl-Iymliu-Gemevo Hx Patient Social History 2nd Hand Smoke Exposure: No Recent Foreign Travel: No Contact w/Someone Who Travel: No Recent Hopitalizations: No Immunizations Up To Date Tetanus Booster (TDap): More than 5yrs PED Vaccines UTD: Yes Date of Pneumonia Vaccine: Mar 29, 2008 Date of Influenza Vaccine: Dec 27, 2018 Seasonal Allergies Seasonal Allergies: Yes Past Medical History Surgeries: Yes (LARRY CARPAL TUNNEL, HERNIA REPAIR, BACK SURGERY 2014; DENTAL EXTRACTIONS) Section, Orthopedic Respiratory: Yes Asthma Cardiac: Yes High Cholesterol Neurological: Yes Headaches /Migraines Reproductive Disorders: No Sexually Transmitted Disease: No HIV/AIDS: No Genitourinary: No Gastrointestinal: Yes Abdominal Hernia, Irritable Bowel Musculoskeletal: Yes Arthritis, Chronic Back Pain Endocrine: Yes (Type II, 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, Non-Insulin dep HEENT: Yes (DENTAL ISSUSES/EXTRACTIONS) Cancer: No Psychosocial: Yes Anxiety, Bipolar, Personality Disorder, Depression Integumentary: No Blood Disorders: No Adverse Reaction/Blood Tranf: No Family Medical History Alcoholism 19 FATHER Arthritis 19 MOTHER Cataracts 19 MOTHER Diabetes mellitus 19 FATHER 19 MOTHER FH: stroke 19 FATHER Hypercholesterolemia 19 MOTHER Hypertension 19 MOTHER No Family History of: Cardiovascular disease Glaucoma Osteoporosis Prostate cancer No Pertinent Family Hx Physical Exam Vital Signs Vital Signs - First Documented 08/08/19 18:56 Temp 37.0 Pulse 110 Resp 20 B/P (MAP) 187/87 (120) Pulse Ox 99 Capillary Refill : Height, Weight, BMI Height: 5'2.00" Weight: 179lbs. 0oz. 81.456159up; 36.00 BMI Method:Stated General Appearance: No Apparent Distress, WD/WN, Obese HEENT: PERRL/EOMI, TMs Normal Respiratory: No Accessory Muscle Use, No Respiratory Distress Cardiovascular: Tachycardia (105 to 115 sinus) Gastrointestinal: Normal Bowel Sounds, Non Tender, Soft Extremity: Normal Capillary Refill, Normal Inspection Neurologic/Psychiatric: Alert, Oriented x3 Skin: Normal Color, Warm/Dry Progress/Results/Core Measures Results/Orders Lab Results Laboratory Tests Test 08/08/19 19:03 08/08/19 19:56 Range/Units White Blood Count 9.2 4.3-11.0 10^3/uL Red Blood Count 5.03 4.35-5.85 10^6/uL Hemoglobin 14.1 11.5-16.0 G/DL Hematocrit 43 35-52 % Mean Corpuscular Volume 85 80-99 FL Mean Corpuscular Hemoglobin 28 25-34 PG Mean Corpuscular Hemoglobin Concent 33 32-36 G/DL Red Cell Distribution Width 14.1 10.0-14.5 % Platelet Count 256 130-400 10^3/uL Mean Platelet Volume 10.4 7.4-10.4 FL Neutrophils (%) (Auto) 60 42-75 % Lymphocytes (%) (Auto) 30 12-44 % Monocytes (%) (Auto) 9 0-12 % Eosinophils (%) (Auto) 1 0-10 % Basophils (%) (Auto) 1 0-10 % Neutrophils # (Auto) 5.5 1.8-7.8 X 10^3 Lymphocytes # (Auto) 2.7 1.0-4.0 X 10^3 Monocytes # (Auto) 0.8 0.0-1.0 X 10^3 Eosinophils # (Auto) 0.1 0.0-0.3 10^3/uL Basophils # (Auto) 0.1 0.0-0.1 10^3/uL Prothrombin Time 12.4 12.2-14.7 SEC INR Comment 0.9 0.8-1.4 Activated Partial Thromboplast Time 22 L 24-35 SEC D-Dimer 0.47 0.00-0.49 UG/ML Sodium Level 135 135-145 MMOL/L Potassium Level 3.8 3.6-5.0 MMOL/L Chloride Level 99 98-107 MMOL/L Carbon Dioxide Level 19 L 21-32 MMOL/L Anion Gap 17 H 5-14 MMOL/L Blood Urea Nitrogen 9 7-18 MG/DL Creatinine 1.06 0.60-1.30 MG/DL Estimat Glomerular Filtration Rate 56 BUN/Creatinine Ratio 8 Glucose Level 539 *H 70-105 MG/DL Calcium Level 9.7 8.5-10.1 MG/DL Corrected Calcium 9.6 8.5-10.1 MG/DL Magnesium Level 1.7 1.6-2.4 MG/DL Total Bilirubin 0.2 0.1-1.0 MG/DL Aspartate Amino Transf (AST/SGOT) 18 5-34 U/L Alanine Aminotransferase (ALT/SGPT) 20 0-55 U/L Alkaline Phosphatase 99 40-136 U/L Myoglobin 14.5 10.0-92.0 NG/ML Troponin I < 0.028 <0.028 NG/ML B-Type Natriuretic Peptide < 10.0 <100.0 PG/ML Total Protein 7.9 6.4-8.2 GM/DL Albumin 4.1 3.2-4.5 GM/DL Urine Color YELLOW Urine Clarity CLEAR Urine pH 6.0 5-9 Urine Specific [place] <=1.005 1.016-1.022 Urine Protein NEGATIVE NEGATIVE Urine Glucose (UA) 3+ H NEGATIVE Urine Ketones NEGATIVE NEGATIVE Urine Nitrite NEGATIVE NEGATIVE Urine Bilirubin NEGATIVE NEGATIVE Urine Urobilinogen 0.2 < = 1.0 MG/DL Urine Leukocyte Esterase 1+ H NEGATIVE Urine RBC (Auto) TRACE-I NEGATIVE Urine RBC NONE /HPF Urine WBC 10-25 H /HPF Urine Squamous Epithelial Cells 0-2 /HPF Urine Crystals NONE /LPF Urine Bacteria TRACE /HPF Urine Casts NONE /LPF Urine Mucus NEGATIVE /LPF Urine Culture Indicated YES My Orders Orders - SOCO JOAQUIN APRN Cbc With Automated Diff (08/08/19 19:05) Magnesium (08/08/19 19:05) Chest 1 View, Ap/Pa Only (08/08/19 19:05) Ekg Tracing (08/08/19 19:05) Comprehensive Metabolic Panel (08/08/19 19:05) Myoglobin Serum (08/08/19 19:05) Protime With Inr (08/08/19 19:05) Partial Thromboplastin Time (08/08/19 19:05) O2 (08/08/19 19:05) Monitor-Rhythm Ecg Trace Only (08/08/19 19:05) Lipid Panel (08/09/19 06:00) Ed Iv/Invasive Line Start (08/08/19 19:05) BNP (08/08/19 19:05) Fibrin Degradation Products (08/08/19 19:05) Troponin I (08/08/19 19:05) Aspirin Chewable Tablet (Baby Aspirin Ch (08/08/19 19:15) Metoprolol Tartrate Injection (Lopressor (08/08/19 19:15) Ns Iv 1000 Ml (Sodium Chloride 0.9%) (08/08/19 19:30) Insulin (Regular) Human (Humulin R (Per (08/08/19 21:00) Ua Culture If Indicated (08/08/19 19:55) Urine Culture (08/08/19 19:56) Medications Given in ED Current Medications Medications Dose Ordered Sig/Ernesto Route Start Time Stop Time Status Last Admin Dose Admin Aspirin 324 mg ONCE ONCE PO 08/08/19 19:15 08/08/19 19:16 DC 08/08/19 19:17 324 MG Metoprolol Tartrate 5 mg ONCE ONCE IV 08/08/19 19:15 08/08/19 19:16 DC 08/08/19 19:17 5 MG Vital Signs/I&O 08/08/19 18:56 Temp 37.0 Pulse 110 Resp 20 B/P (MAP) 187/87 (120) Pulse Ox 99 Departure Impression Primary Impression: Urinary tract infection Qualified Codes: N30.00 - Acute cystitis without hematuria Additional Impressions: Hypertension Dehydration Hyperglycemia Disposition: HOME, SELF-CARE Condition: Improved Departure-Patient Inst. Decision time for Depature: 20:15 Referrals: [facility] (PCP) Primary Care Physician BEVERLY TAO (Family) Primary Care Physician Patient Instructions: Hyperglycemia, Adult Add. Discharge Instructions: 1. Antibiotics as directed. 2. Drink lots of fluids 3. Keep a close eye on her blood sugar 4. Scripts Cefdinir (Cefdinir) 300 Mg Capsule 300 MG PO BID, #10 CAP Prov: SOCO JOAQUIN PIECER 08/08/19 SOCO JOAQUIN PIECER August 08, 2019 19:08
[2019-08-08 19:14] LABS: BASOPHILS # (AUTO) 0.1 10^3/uL (0.0-0.1); BASOPHILS % (AUTO) 1 % (0-10); EOSINOPHILS # (AUTO) 0.1 10^3/uL (0.0-0.3); EOSINOPHILS % (AUTO) 1 % (0-10); HEMATOCRIT 43 % (35-52); HEMOGLOBIN 14.1 G/DL (11.5-16.0); LYMPHOCYTES # (AUTO) 2.7 X 10^3 (1.0-4.0); LYMPHOCYTES % (AUTO) 30 % (12-44); MEAN CORPUSCULAR HEMOGLOBIN 28 PG (25-34); MEAN CORPUSCULAR HGB CONC 33 G/DL (32-36); MEAN CORPUSCULAR VOLUME 85 FL (80-99); MEAN PLATELET VOLUME 10.4 FL (7.4-10.4); MONOCYTES # (AUTO) 0.8 X 10^3 (0.0-1.0); MONOCYTES % (AUTO) 9 % (0-12); NEUTROPHILS # (AUTO) 5.5 X 10^3 (1.8-7.8); NEUTROPHILS % (AUTO) 60 % (42-75); PLATELET COUNT 256 10^3/uL (130-400); RED CELL DISTRIBUTION WIDTH 14.1 % (10.0-14.5); WHITE BLOOD COUNT 9.2 10^3/uL (4.3-11.0)
[2019-08-08] MEDS ORDERED: meTOprolol 5 MG/5 ML (LOPRESSOR) VIAL IV ONE (19:15)
[2019-08-08] MEDS ORDERED: ASPIRIN 81 MG CHEW (CHILDREN'S ASA) PO ONE (19:15)
[2019-08-08 19:24] LABS: ALBUMIN 4.1 GM/DL (3.2-4.5)
[2019-08-08 19:25] LABS: INR 0.9 (0.8-1.4); POTASSIUM 3.8 MMOL/L (3.6-5.0); PROTHROMBIN TIME PATIENT 12.4 SEC (12.2-14.7)
[2019-08-08 19:26] LABS: CALCIUM 9.7 MG/DL (8.5-10.1)
[2019-08-08 19:27] LABS: TOTAL PROTEIN 7.9 GM/DL (6.4-8.2)
[2019-08-08 19:29] LABS: BILIRUBIN,TOTAL 0.2 MG/DL (0.1-1.0)
[2019-08-08 19:30] LABS: CREATININE SERUM 1.06 MG/DL (0.60-1.30)
[2019-08-08] MEDS ORDERED: NS IV 1000 ML 1,000 ML IV SCH ×2 (19:30→20:30)
[2019-08-08 19:34] LABS: MAGNESIUM 1.7 MG/DL (1.6-2.4)
[2019-08-08 20:02] LABS: BILIRUBIN,URINE NEGATIVE (NEGATIVE); CLARITY,URINE CLEAR; COLOR,URINE YELLOW; GLUCOSE, URINE (UA) 3+ (NEGATIVE); KETONES,URINE NEGATIVE (NEGATIVE); NITRITE,URINE NEGATIVE (NEGATIVE); PROTEIN,URINE NEGATIVE (NEGATIVE)
--- NOTE | 2019-08-08 20:02 | Diagnostic Imaging Report ---
EXAM: CHEST 1 VIEW, AP/PA ONLY INDICATION: Hypertension. Palpitations. COMPARISON: 03/26/2019. FINDINGS: Normal heart size and pulmonary vascularity. No dense consolidation, pleural effusion or pneumothorax. No acute osseous findings. No significant change. IMPRESSION: No acute cardiopulmonary findings. Dictated by: Dictated on workstation # [id number]
[2019-08-08 20:07] LABS: LEUKOCYTE ESTERASE ,URINE 1+ (NEGATIVE)
[2019-08-08 20:08] LABS: BACTERIA,URINE TRACE /HPF; SQUAMOUS EPITHELIAL CELL,UR 0-2 /HPF
[2019-08-08] MEDS ORDERED: CEFD300C3 PO (20:16)
[2019-08-08] MEDS ORDERED: inSUlin (REGULAR) HUMAN 1 UNIT/0.01 ML (CHARGE PER UNIT) IV SCH (21:00)
[2019-08-08] MEDS ORDERED: FLUC150T PO (21:03)
[2019-08-08 21:06] VITALS: BP 126/66
== END 2019-08-08 21:06 | disposition home or self-care (01) ==
LOC: EDUNIT# 18:51 → ER 18:53
DX: N39.0 Urinary tract infection, site not specified (principal); I10 Essential (primary) hypertension; E86.0 Dehydration; E11.65 Type 2 diabetes mellitus with hyperglycemia; J45.909 Unspecified asthma, uncomplicated; E78.00 Pure hypercholesterolemia, unspecified; F41.9 Anxiety disorder, unspecified; F31.9 Bipolar disorder, unspecified; Z79.4 Long term (current) use of insulin; Z88.1 Allergy status to other antibiotic agents; Z88.8 Allergy status to other drugs, medicaments and biological substances; Z82.49 Family history of ischemic heart disease and other diseases of the circulatory system
CPT/HCPCS: 36415; 71045; 80053; 81000; 82962; 83735; 83874; 83880; 84484; 85025; 85379; 85610; 85730; 87077; 87088; 93005; 93041

== ENCOUNTER 2020-05-27 15:56 | Emergency (ER) | payer MEDICAID, OTHER ==
[~2020-05-27] VITALS: Ht 157.5 cm; Wt 90.7 kg
[~2020-05-27 15:56] MED LIST changes: +CEFD300C3 PO; +FLUC150T PO
--- NOTE | 2020-05-27 16:53 | ED Lower Extremity ---
General Chief Complaint: Lower Extremity Stated Complaint: L LEG GAVE OUT Nursing Triage Note: PT AMBULATE TO TRIAGE WITHOUT DIFFICULTY WITH C/O LEFT LEG PAIN AND SWELLING. PT REPORTS HX OF BLOOD CLOTS X20 YEARS AGO. PT REPORTS SHE IS IN PHYSICAL THERAPY FOR THIS C/O. Nursing Sepsis Screen: No Definite Risk Source: patient Exam Limitations: no limitations History of Present Illness Date Seen by Provider: May 27, 2020 Time Seen by Provider: 16:40 Initial Comments This is a well-appearing 45-year-old female who presents to the ER with compla ints of left lower extremity pain and swelling. States she has a history of blood clots with her last known DVT in 1999. States she has been seen multiple times by her primary care provider who "does not do anything". She is concerned she may have another blood clot. Denies fevers, chills, cough, shortness of breath, nausea, vomiting, diarrhea, abdominal pain. Allergies and Home Medications Allergies Coded Allergies: azithromycin (Unverified Allergy, Unknown, 10/28/13) CHEST PAIN prednisone (Unverified Adverse Reaction, Unknown, RAISES BLOOD SUGAR, 10/28/13) Home Medications Albuterol Sulfate 18 Gm Hfa.aer.ad, 1-2 PUFF INH QID PRN for WHEEZING Prescribed by: ANGIE MAS on 03/26/191536 Cefdinir 300 Mg Capsule, 300 MG PO BID Prescribed by: SOCO JOAQUIN on 08/08/192015 Citalopram Hydrobromide 20 Mg Tablet, 1 EACH PO BID, (Reported) Dulaglutide 1.5 Mg/0.5 Ml Pen.injctr, 1.5 MG SQ WEEK, (Reported) Fluconazole 150 Mg Tablet, 150 MG PO DAILY Prescribed by: SOCO JOAQUIN on 08/08/192102 Hum Insulin Nph/Reg Insulin Hm 10 Ml Vial, 110 UNITS SQ BID, (Reported) Lamotrigine 150 Mg Tablet, 300 MG PO DAILY, (Reported) Lorazepam 1 Mg Tablet, 1 MG SL DAILY PRN PRN for ANXIETY, (Reported) Losartan Potassium 25 Mg Tablet, 1 EACH PO BID, (Reported) Promethazine HCl 25 Mg Tablet, 25 MG PO TID PRN for NAUSEA/VOMITING Prescribed by: SOCO JOAQUIN on 06/22/191830 Simvastatin 40 Mg Tablet, 2 TAB PO DAILY, (Reported) Patient Home Medication List Home Medication List Reviewed: Yes Review of Systems Constitutional: no symptoms reported EENTM: no symptoms reported Respiratory: no symptoms reported Cardiovascular: see HPI Gastrointestinal: no symptoms reported Genitourinary: no symptoms reported Musculoskeletal: see HPI Skin: no symptoms reported Psychiatric/Neurological: No Symptoms Reported Past Fhcmjxg-Qjafxh-Uzfkrp Hx Patient Social History Alcohol Use: Denies Use Smoking Status: Never a Smoker 2nd Hand Smoke Exposure: No Recent Infectious Disease Expo: No Recent Hopitalizations: No Immunizations Up To Date Tetanus Booster (TDap): More than 5yrs PED Vaccines UTD: Yes Date of Pneumonia Vaccine: Mar 29, 2008 Date of Influenza Vaccine: Dec 27, 2018 Seasonal Allergies Seasonal Allergies: Yes Past Medical History Surgeries: Yes (LARRY CARPAL TUNNEL, HERNIA REPAIR, BACK SURGERY 2014; DENTAL EXTRACTIONS) Section, Orthopedic Respiratory: Yes Asthma Cardiac: Yes High Cholesterol, Hypertension Neurological: Yes Headaches /Migraines Reproductive Disorders: No Sexually Transmitted Disease: No HIV/AIDS: No Genitourinary: No Gastrointestinal: Yes Abdominal Hernia, Irritable Bowel Musculoskeletal: Yes Arthritis, Chronic Back Pain Endocrine: Yes (Type II, 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, Non-Insulin dep HEENT: Yes (DENTAL ISSUSES/EXTRACTIONS) Cancer: No Psychosocial: Yes Anxiety, Bipolar, Personality Disorder, Depression Integumentary: No Blood Disorders: No Adverse Reaction/Blood Tranf: No Family Medical History Alcoholism 19 FATHER Arthritis 19 MOTHER Cataracts 19 MOTHER Diabetes mellitus 19 FATHER 19 MOTHER FH: stroke 19 FATHER Hypercholesterolemia 19 MOTHER Hypertension 19 MOTHER No Family History of: Cardiovascular disease Glaucoma Osteoporosis Prostate cancer No Pertinent Family Hx Physical Exam Vital Signs Vital Signs - First Documented 05/27/20 05/27/20 16:06 18:53 Temp 37.3 Pulse 105 Resp 17 B/P (MAP) 138/64 (88) Pulse Ox 98 O2 Delivery Room Air Capillary Refill : Less Than 3 Seconds Height, Weight, BMI Height: 5'2.00" Weight: 179lbs. 0oz. 81.710358fw; 36.00 BMI Method:Stated General Appearance: WD/WN, no apparent distress HEENT: PERRL/EOMI, normal ENT inspection Neck: full range of motion, normal inspection Cardiovascular: regular rate, rhythm, no edema, no murmur, other (skin is pink, warm, and dry ) Respiratory: lungs clear, normal breath sounds Gastrointestinal: normal bowel sounds, non tender, soft Hips: bilateral hip normal inspection, bilateral hip normal range of motion, bilateral hip no evidence of injury Legs: bilateral leg normal inspection, bilateral leg normal range of motion, bilateral leg no evidence of injury Knees: bilateral knee non-tender, bilateral knee normal inspection, bilateral knee normal range of motion, bilateral knee no evidence of injury Ankles: bilateral ankle normal inspection, bilateral ankle normal range of motion, bilateral ankle no evidence of injury Neurologic/Tendon: normal sensation, normal motor functions, normal tendon functions Neurologic/Psychiatric: no motor/sensory deficits, alert, normal mood/affect, oriented x 3 Skin: normal color, warm/dry LLE: No swelling appreciated. + Homans sign. 2+ pedal pulse. Progress/Results/Core Measures Results/Orders My Orders Orders - GHASSAN ELLIS APRN Us Venous Lower Ext Lt (05/27/20 16:22) Vital Signs/I&O 05/27/20 05/27/20 16:06 18:53 Temp 37.3 Pulse 105 71 Resp 17 16 B/P (MAP) 138/64 (88) 133/71 Pulse Ox 98 O2 Delivery Room Air Room Air Blood Pressure Mean: 88 Progress Progress Note : Progress Note Patient examined and in no acute distress. No swelling appreciated on bilateral lower extremities. Noted to have positive Homans' sign in left lower extremity. Will order venous ultrasound of left lower extremity to rule out DVT. Venous ultrasound negative for DVT. Discussed use of YUSEF hose, states she is supposed to be wearing those but does not as they are uncomfortable. However she plans to go buy new ones.Declined having ED provide her with YUSEF hose stating she did not like the brand used in ED. Reviewed discharge plan and she is agreeable with plan. All questions addressed at this time. Diagnostic Imaging Diagonstic Imaging: Ultrasound Plain Films/CT/US/NM/MRI: leg Comments NAME: [facility] REC#: [id number] PT STATUS: REG ER : 1975 PHYSICIAN: GHASSAN ELLIS APRN ADMIT DATE: 05/27/20/ER Signed Date of Exam:05/27/20 US VENOUS LOWER EXT LT INDICATION: Left leg pain. Left leg venous Doppler study was performed in the routine fashion with color flow Doppler and waveform analysis. FINDINGS: The left common femoral vein, superficial femoral vein, popliteal vein and visualized portion of the posterior tibial vein show normal compressibility and venous flow patterns. There is normal augmentation. IMPRESSION: No evidence of deep vein thrombosis of the major veins of the left leg. Dictated by: Dictated on workstation # [id number] Dict: 05/27/206 Trans: 05/27/201656 [id number] Interpreted by: LEONCIO YA MD Electronically signed by: LEONCIO YA MD 05/27/201656 Reviewed: Reviewed by Me Departure Impression Primary Impression: Leg pain Disposition: HOME, SELF-CARE Condition: Stable/Unchanged Departure-Patient Inst. Decision time for Depature: 16:51 Referrals: [facility] (PCP) Primary Care Physician BEVERLY TAO (Family) Primary Care Physician Patient Instructions: Dependent Edema (DC) Add. Discharge Instructions: Plan: 1. Discharge home. 2. Keep legs elevated whenever sitting. 3. Use YUSEF hose when walking, may remove at night. 4. Follow up with your primary care provider this week. All discharge instructions reviewed with patient and/or family. Voiced understanding. GHASSAN ELLIS APRN May 27, 2020 16:53
--- NOTE | 2020-05-27 16:58 | Diagnostic Imaging Report ---
INDICATION: Left leg pain. Left leg venous Doppler study was performed in the routine fashion with color flow Doppler and waveform analysis. FINDINGS: The left common femoral vein, superficial femoral vein, popliteal vein and visualized portion of the posterior tibial vein show normal compressibility and venous flow patterns. There is normal augmentation. IMPRESSION: No evidence of deep vein thrombosis of the major veins of the left leg. Dictated by: Dictated on workstation # [id number]
[2020-05-27 18:53] VITALS: BP 133/71
== END 2020-05-27 16:58 | disposition home or self-care (01) ==
LOC: EDUNIT# 15:56 → ER 15:59
DX: M79.605 Pain in left leg (principal); E78.00 Pure hypercholesterolemia, unspecified; I10 Essential (primary) hypertension; J45.909 Unspecified asthma, uncomplicated; E11.9 Type 2 diabetes mellitus without complications; F31.9 Bipolar disorder, unspecified; F41.9 Anxiety disorder, unspecified; Z88.1 Allergy status to other antibiotic agents; Z88.8 Allergy status to other drugs, medicaments and biological substances; Z82.49 Family history of ischemic heart disease and other diseases of the circulatory system; Z82.61 Family history of arthritis; Z83.3 Family history of diabetes mellitus; Z79.4 Long term (current) use of insulin

== ENCOUNTER 2020-06-02 13:32 | Emergency (ER) | payer OTHER ==
[~2020-06-02] VITALS: Ht 157 cm; Wt 98.0 kg
[2020-06-02 13:48] VITALS: BP 134/82
[2020-06-02] MEDS ORDERED: NAPR-1070 PO (13:58)
[2020-06-02] MEDS ORDERED: METH-313 PO (13:58)
--- NOTE | 2020-06-02 13:59 | ED Lower Extremity ---
General Stated Complaint: R SIDE LOWER BACK PAIN Source: patient Exam Limitations: no limitations History of Present Illness Date Seen by Provider: Jun 02, 2020 Time Seen by Provider: 13:54 Initial Comments With pain in the right buttock since yesterday. No known injury. This radiates down to the proximal posterior right thigh. No known injury. Started at rest. Onset: just prior to arrival Severity: moderate Pain/Injury Location: right thigh Method of Injury: unknown Modifying Factors: Worse With Movement Allergies and Home Medications Allergies Coded Allergies: azithromycin (Unverified Allergy, Unknown, 10/28/13) CHEST PAIN prednisone (Unverified Adverse Reaction, Unknown, RAISES BLOOD SUGAR, 10/28/13) Home Medications Albuterol Sulfate 18 Gm Hfa.aer.ad, 1-2 PUFF INH QID PRN for WHEEZING Prescribed by: ANGIE MAS on 03/26/191536 Cefdinir 300 Mg Capsule, 300 MG PO BID Prescribed by: SOCO JOAQUIN on 08/08/192015 Citalopram Hydrobromide 20 Mg Tablet, 1 EACH PO BID, (Reported) Dulaglutide 1.5 Mg/0.5 Ml Pen.injctr, 1.5 MG SQ WEEK, (Reported) Fluconazole 150 Mg Tablet, 150 MG PO DAILY Prescribed by: SOCO JOAQUIN on 08/08/192102 Hum Insulin Nph/Reg Insulin Hm 10 Ml Vial, 110 UNITS SQ BID, (Reported) Lamotrigine 150 Mg Tablet, 300 MG PO DAILY, (Reported) Lorazepam 1 Mg Tablet, 1 MG SL DAILY PRN PRN for ANXIETY, (Reported) Losartan Potassium 25 Mg Tablet, 1 EACH PO BID, (Reported) Promethazine HCl 25 Mg Tablet, 25 MG PO TID PRN for NAUSEA/VOMITING Prescribed by: SOCO JOAQUIN on 06/22/19 183 Simvastatin 40 Mg Tablet, 2 TAB PO DAILY, (Reported) Patient Home Medication List Home Medication List Reviewed: Yes Review of Systems Constitutional: see HPI EENTM: see HPI Respiratory: no symptoms reported Cardiovascular: no symptoms reported Genitourinary: no symptoms reported Musculoskeletal: see HPI Skin: no symptoms reported Psychiatric/Neurological: No Symptoms Reported Past Mbzgcsv-Qheemc-Ztthah Hx Patient Social History 2nd Hand Smoke Exposure: No Recent Hopitalizations: No Immunizations Up To Date Tetanus Booster (TDap): More than 5yrs PED Vaccines UTD: Yes Date of Pneumonia Vaccine: Mar 29, 2008 Date of Influenza Vaccine: Dec 27, 2018 Seasonal Allergies Seasonal Allergies: Yes Past Medical History Surgeries: Yes (LARRY CARPAL TUNNEL, HERNIA REPAIR, BACK SURGERY 2014; DENTAL EXTRACTIONS) Section, Orthopedic Respiratory: Yes Asthma Cardiac: Yes High Cholesterol, Hypertension Neurological: Yes Headaches /Migraines Reproductive Disorders: No Sexually Transmitted Disease: No HIV/AIDS: No Genitourinary: No Gastrointestinal: Yes Abdominal Hernia, Irritable Bowel Musculoskeletal: Yes Arthritis, Chronic Back Pain Endocrine: Yes (Type II, 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, Non-Insulin dep HEENT: Yes (DENTAL ISSUSES/EXTRACTIONS) Cancer: No Psychosocial: Yes Anxiety, Bipolar, Personality Disorder, Depression Integumentary: No Blood Disorders: No Adverse Reaction/Blood Tranf: No Family Medical History Alcoholism 19 FATHER Arthritis 19 MOTHER Cataracts 19 MOTHER Diabetes mellitus 19 FATHER 19 MOTHER FH: stroke 19 FATHER Hypercholesterolemia 19 MOTHER Hypertension 19 MOTHER No Family History of: Cardiovascular disease Glaucoma Osteoporosis Prostate cancer No Pertinent Family Hx Physical Exam Vital Signs Capillary Refill : Height, Weight, BMI Height: 5'2.00" Weight: 179lbs. 0oz. 81.274513jd; 36.00 BMI Method:Stated General Appearance: WD/WN, no apparent distress Neck: non-tender, full range of motion Gastrointestinal: normal bowel sounds, non tender Hips: bilateral hip non-tender, bilateral hip normal inspection, bilateral hip normal range of motion; right hip other (The right buttock is tender but normal in appearance without lesion ecchymosis or erythema) Legs: bilateral leg non-tender, bilateral leg normal inspection, bilateral leg normal range of motion Knees: bilateral knee non-tender, bilateral knee normal inspection Ankles: bilateral ankle non-tender, bilateral ankle normal inspection Neurologic/Psychiatric: alert, normal mood/affect, oriented x 3 Skin: normal color, warm/dry Progress/Results/Core Measures Results/Orders My Orders Orders - SOCO JOAQUIN APRN Ketorolac Injection (Toradol Injection) (06/02/20 14:00) Orphenadrine Inj (Ed Only) (Norflex Inje (06/02/20 14:00) Departure Impression Primary Impression: Piriformis syndrome of right side Disposition: 01 HOME, SELF-CARE Condition: Stable Departure-Patient Inst. Decision time for Depature: 13:56 Referrals: [facility] (PCP) Primary Care Physician BEVERLY TAO (Family) Primary Care Physician Patient Instructions: NO INSTRUCTIONS GIVEN Add. Discharge Instructions: 1. Take the muscle relaxers and anti-inflammatories as directed. Return to ER for any worsening. Follow-up with your doctor later this week for recheck. Scripts Methocarbamol (Robaxin-750) 750 Mg Tablet 1500 MG PO Q6H PRN for PAIN-MODERATE (5-7), #14 TAB Prov: SOCO JOAQUIN APRN 06/02/20 Naproxen Sodium (Anaprox Ds) 550 Mg Tablet 550 MG PO BID PRN for PAIN-MODERATE (5-7), #10 TAB Prov: SOCO JOAQUIN APRN 06/02/20 SOCO JOAQUIN APRN Jun 02, 2020 13:58
[2020-06-02] MEDS ORDERED: ORPHENADRINE 60 MG/2 ML (NORFLEX) AMP (ED ONLY) IM ONE (14:00)
[2020-06-02] MEDS ORDERED: KETOROLAC 60 MG/2 ML VIAL IM ONE (14:00)
== END 2020-06-02 14:12 | disposition home or self-care (01) ==
LOC: EDUNIT# 13:32 → ER 13:33
DX: G57.01 Lesion of sciatic nerve, right lower limb (principal); J45.909 Unspecified asthma, uncomplicated; E78.00 Pure hypercholesterolemia, unspecified; I10 Essential (primary) hypertension; F41.9 Anxiety disorder, unspecified; F31.9 Bipolar disorder, unspecified; E11.9 Type 2 diabetes mellitus without complications; Z88.1 Allergy status to other antibiotic agents; Z88.8 Allergy status to other drugs, medicaments and biological substances; Z82.49 Family history of ischemic heart disease and other diseases of the circulatory system; Z82.61 Family history of arthritis; Z79.4 Long term (current) use of insulin
CPT/HCPCS: 99284

== ENCOUNTER 2020-07-22 18:17 | Emergency (ER) | payer OTHER ==
[~2020-07-22] VITALS: Ht 157.5 cm; Wt 97.9 kg
[~2020-07-22 18:17] MED LIST changes: +METH-313 PO; +NAPR-1070 PO
[2020-07-22 18:27] VITALS: BP 136/82
--- NOTE | 2020-07-22 18:40 | ED Lower Extremity ---
General Chief Complaint: Lower Extremity Stated Complaint: FALL/BILAT KNEE PAIN Nursing Triage Note: PT AMB TO TRIAGE WITH COMPLAINT OF BILATERAL KNEE AFTER TRIPPING ON THE STAIRS. PT HAS ABRAISIONS TO BOTH KNEES. Nursing Sepsis Screen: No Definite Risk Source: patient Exam Limitations: no limitations History of Present Illness Date Seen by Provider: Jul 22, 2020 Time Seen by Provider: 18:35 Initial Comments Patient to ER by POV with chief complaint about 35 minutes ago she was walking up the steps to her house with a couple drinks and again lost her balance and fell on both knees scuffing of her right knee. She is having right anterior tibial plateau pain although able to bear weight. She is having no numbness or tingling or other injury. She denies striking her head or loss of conscious ness. Allergies and Home Medications Allergies Coded Allergies: azithromycin (Unverified Allergy, Unknown, 10/28/13) CHEST PAIN prednisone (Unverified Adverse Reaction, Unknown, RAISES BLOOD SUGAR, 10/28/13) Home Medications Albuterol Sulfate 18 Gm Hfa.aer.ad, 1-2 PUFF INH QID PRN for WHEEZING Prescribed by: ANGIE MAS on 03/26/191536 Cefdinir 300 Mg Capsule, 300 MG PO BID Prescribed by: SCOO JOAQUIN on 08/08/192015 Citalopram Hydrobromide 20 Mg Tablet, 1 EACH PO BID, (Reported) Dulaglutide 1.5 Mg/0.5 Ml Pen.injctr, 1.5 MG SQ WEEK, (Reported) Fluconazole 150 Mg Tablet, 150 MG PO DAILY Prescribed by: SOCO JOAQUIN on 08/08/192102 Hum Insulin Nph/Reg Insulin Hm 10 Ml Vial, 110 UNITS SQ BID, (Reported) Lamotrigine 150 Mg Tablet, 300 MG PO DAILY, (Reported) Lorazepam 1 Mg Tablet, 1 MG SL DAILY PRN PRN for ANXIETY, (Reported) Losartan Potassium 25 Mg Tablet, 1 EACH PO BID, (Reported) Methocarbamol 750 Mg Tablet, 1,500 MG PO Q6H PRN for PAIN-MODERATE (5-7) Prescribed by: SOCO JOAQUIN on 06/02/20 135 Naproxen Sodium 550 Mg Tablet, 550 MG PO BID PRN for PAIN-MODERATE (5-7) Prescribed by: SOCO JOAQUIN on 06/02/20 1358 Promethazine HCl 25 Mg Tablet, 25 MG PO TID PRN for NAUSEA/VOMITING Prescribed by: SOCO JOAQUIN on 06/22/19 1831 Simvastatin 40 Mg Tablet, 2 TAB PO DAILY, (Reported) Patient Home Medication List Home Medication List Reviewed: Yes Review of Systems Constitutional: No chills, No diaphoresis EENTM: No ear discharge, No ear pain Cardiovascular: No chest pain, No palpitations, No syncope All Other Systems Reviewed Negative Unless Noted: Yes Past Sbcwdqd-Ojtvfr-Nclece Hx Patient Social History Alcohol Use: Denies Use Smoking Status: Never a Smoker 2nd Hand Smoke Exposure: No Recent Infectious Disease Expo: No Recent Hopitalizations: No Immunizations Up To Date Tetanus Booster (TDap): More than 5yrs PED Vaccines UTD: Yes Date of Pneumonia Vaccine: Mar 29, 2008 Date of Influenza Vaccine: Dec 27, 2018 Seasonal Allergies Seasonal Allergies: Yes Past Medical History Surgeries: Yes (LARRY CARPAL TUNNEL, HERNIA REPAIR, BACK SURGERY 2014; DENTAL EXTRACTIONS) Section, Orthopedic Respiratory: Yes Asthma Cardiac: Yes High Cholesterol, Hypertension Neurological: Yes Headaches /Migraines Reproductive Disorders: No Sexually Transmitted Disease: No HIV/AIDS: No Genitourinary: No Gastrointestinal: Yes Abdominal Hernia, Irritable Bowel Musculoskeletal: Yes Arthritis, Chronic Back Pain Endocrine: Yes (Type II, 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, Non-Insulin dep HEENT: Yes (DENTAL ISSUSES/EXTRACTIONS) Cancer: No Psychosocial: Yes Anxiety, Bipolar, Personality Disorder, Depression Integumentary: No Blood Disorders: No Adverse Reaction/Blood Tranf: No Family Medical History Alcoholism 19 FATHER Arthritis 19 MOTHER Cataracts 19 MOTHER Diabetes mellitus 19 FATHER 19 MOTHER FH: stroke 19 FATHER Hypercholesterolemia 19 MOTHER Hypertension 19 MOTHER No Family History of: Cardiovascular disease Glaucoma Osteoporosis Prostate cancer No Pertinent Family Hx Physical Exam Vital Signs Vital Signs - First Documented 07/22/20 18:27 Temp 36.3 Pulse 105 Resp 20 B/P (MAP) 136/82 (100) Pulse Ox 99 O2 Delivery Room Air Capillary Refill : Less Than 3 Seconds Height, Weight, BMI Height: 5'2.00" Weight: 179lbs. 0oz. 81.081408op; 39.00 BMI Method:Stated General Appearance: mild distress, obese HEENT: PERRL/EOMI, pharynx normal Cardiovascular: normal peripheral pulses, regular rate, rhythm, no edema Respiratory: no respiratory distress, no accessory muscle use Knees: left knee non-tender, left knee normal inspection; bilateral knee normal range of motion; right knee bone tenderness (Lateral anterior tibial plateau tenderness to palpation without deformity) Neurologic/Psychiatric: no motor/sensory deficits, alert Skin: other (Superficial abrasions 1-1/2 x 2 cm over the right anterior tibial plateau) Progress/Results/Core Measures Results/Orders My Orders Orders - MYAH OLIVAS Knee, Right, 3 Views (07/22/20 18:32) Vital Signs/I&O 07/22/20 18:27 Temp 36.3 Pulse 105 Resp 20 B/P (MAP) 136/82 (100) Pulse Ox 99 O2 Delivery Room Air Blood Pressure Mean: 100 Progress Progress Note : Time: 18:37 Progress Note Plain film right knee. Instructions for dressing the abrasions. Diagnostic Imaging Diagonstic Imaging: Xray Plain Films/CT/US/NM/MRI: knee (r) Comments NAME: [facility] REC#: [id number] PT STATUS: REG ER : 1975 PHYSICIAN: MYAH OLIVAS MD ADMIT DATE: 07/22/20/ER Draft Date of Exam:07/22/20 KNEE, RIGHT, 3 VIEWS INDICATION: Fell going down stairs. Abrasions. EXAMINATION: Right knee 07/22/2020 FINDINGS: 3 views the knee There is no evidence for an acute fracture or dislocation. The joint spaces are well maintained. There is no significant soft tissue swelling. IMPRESSION: No acute process. Dictated on workstation # [id number] Dict: 07/22/205 Trans: 07/22/201846 [facility] [id number] Interpreted by: FARHAD HEART MD Electronically signed by: Reviewed: Reviewed by Me Departure Impression Primary Impression: Fall on steps Qualified Codes: W10.8XXA - Fall (on) (from) other stairs and steps, initial encounter Additional Impressions: Abrasion, right knee, initial encounter Right anterior knee pain Disposition: HOME, SELF-CARE Condition: Stable Departure-Patient Inst. Decision time for Depature: 18:45 Referrals: [facility]/ (PCP) Primary Care Physician LOUISE STRATTON (Family) Primary Care Physician Patient Instructions: Skin Abrasions, Knee Pain (DC) Add. Discharge Instructions: Keep the wounds dressed with Vaseline or triple antibiotic ointment and a dressing. Change it daily or more often if it becomes soiled. Clean the wounds with regular soap and water only. No antiseptic washes or sprays. Elevate the knee above the level of your heart while at rest. Keep it wrapped with an Bhanu bandage or knee sleeve for compression. Ice 20 minutes on every 2 hours for the first 2 to 3 days. Tylenol and ibuprofen as necessary for pain. All discharge instructions reviewed with patient and/or family. Voiced understanding. MYAH OLIVAS Jul 22, 2020 18:40
--- NOTE | 2020-07-22 18:47 | Diagnostic Imaging Report ---
INDICATION: Fell going down stairs. Abrasions. EXAMINATION: Right knee 07/22/2020 FINDINGS: 3 views the knee There is no evidence for an acute fracture or dislocation. The joint spaces are well maintained. There is no significant soft tissue swelling. IMPRESSION: No acute process. Dictated by: Dictated on workstation # [id number]
[2020-07-22] MEDS ORDERED: CYCL10TA9 PO (19:19)
== END 2020-07-22 19:24 | disposition home or self-care (01) ==
LOC: EDUNIT# 18:17 → ER 18:19
DX: S80.211A Abrasion, right knee, initial encounter (principal); E66.9 Obesity, unspecified; J45.909 Unspecified asthma, uncomplicated; E78.00 Pure hypercholesterolemia, unspecified; E11.9 Type 2 diabetes mellitus without complications; I10 Essential (primary) hypertension; F32.9 Major depressive disorder, single episode, unspecified; Z68.39 Body mass index [BMI] 39.0-39.9, adult; Z88.1 Allergy status to other antibiotic agents; Z88.8 Allergy status to other drugs, medicaments and biological substances; Z79.4 Long term (current) use of insulin; W10.8XXA Fall (on) (from) other stairs and steps, initial encounter
CPT/HCPCS: 73562

== ENCOUNTER 2020-08-01 13:20 | Emergency (ER) | payer OTHER, MEDICAID ==
[~2020-08-01] VITALS: Ht 158 cm; Wt 98.4 kg
[~2020-08-01 13:20] MED LIST changes: +CYCL10TA9 PO
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
[2020-08-01] MEDS ORDERED: KETOROLAC 30 MG/ML VIAL IM ONE (13:45)
[2020-08-01 14:01] VITALS: BP 131/70
[2020-08-02] MEDS ORDERED: CYCL10TA9 PO (12:44)
== END 2020-08-01 14:03 | disposition home or self-care (01) ==
LOC: EDUNIT# 13:20 → ER 13:21
DX: M79.10 Myalgia, unspecified site (principal); J45.909 Unspecified asthma, uncomplicated; I10 Essential (primary) hypertension; E78.00 Pure hypercholesterolemia, unspecified; F41.9 Anxiety disorder, unspecified; F32.9 Major depressive disorder, single episode, unspecified; E11.9 Type 2 diabetes mellitus without complications; Z88.1 Allergy status to other antibiotic agents; Z88.8 Allergy status to other drugs, medicaments and biological substances; Z79.899 Other long term (current) drug therapy
CPT/HCPCS: 99284

== ENCOUNTER 2020-08-02 11:05 | Emergency (ER) | payer OTHER, MEDICAID ==
[~2020-08-02] VITALS: Ht 157.5 cm; Wt 98.4 kg
[2020-08-02 11:12] VITALS: BP 125/81
[2020-08-02] MEDS ORDERED: KETOROLAC 60 MG/2 ML VIAL IM ONE (11:45)
[2020-08-02] MEDS ORDERED: ORPHENADRINE 60 MG/2 ML (NORFLEX) AMP (ED ONLY) IM ONE (11:45)
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
[2020-08-02] MEDS ORDERED: CYCL10TA9 PO (12:44)
== END 2020-08-02 12:48 | disposition home or self-care (01) ==
LOC: EDUNIT# 11:05 → ER 11:07
DX: S40.012A Contusion of left shoulder, initial encounter (principal); J45.909 Unspecified asthma, uncomplicated; E78.00 Pure hypercholesterolemia, unspecified; F31.9 Bipolar disorder, unspecified; E11.9 Type 2 diabetes mellitus without complications; Z88.1 Allergy status to other antibiotic agents; Z88.8 Allergy status to other drugs, medicaments and biological substances; Z79.4 Long term (current) use of insulin; Z79.899 Other long term (current) drug therapy; V89.2XXA Person injured in unspecified motor-vehicle accident, traffic, initial encounter
CPT/HCPCS: 70450; 72125; 73030

== ENCOUNTER 2020-08-30 23:22 | Inpatient (IN) | payer MEDICARE, MEDICAID ==
[~2020-08-30] VITALS: Ht 157.4 cm; Wt 104.7 kg
--- NOTE | 2020-08-30 23:55 | ED General ---
General Chief Complaint: Glucose Problems Stated Complaint: BLOOD SUGAR 500 Source of Information: Patient Exam Limitations: No Limitations History of Present Illness Date Seen by Provider: Aug 30, 2020 Time Seen by Provider: 23:41 Initial Comments Patient presents ER by private conveyance from home with chief complaint of a blood sugar 531 tonight. She says she is been doing well until here lately she had to have her Tresiba doubled to 200 mg. She sees Louise Coronado. She does not take short acting insulin. She has not had a cough fever chills nausea vomiting diarrhea dysuria although she does have a vulvovaginal candidiasis which she is treating outpatient with topical creams. She does still drink soda although she says not every day and she drinks sweet tea when she gets tired of water. She says she mixes the sweet tea 50-50 with nonsweet tea as a compromise. Allergies and Home Medications Allergies Coded Allergies: azithromycin (Unverified Allergy, Unknown, 10/28/13) CHEST PAIN prednisone (Unverified Adverse Reaction, Unknown, RAISES BLOOD SUGAR, 10/28/13) Home Medications Albuterol Sulfate 18 Gm Hfa.aer.ad, 1-2 PUFF INH QID PRN for WHEEZING Prescribed by: ANGIE MAS on 03/26/191536 Cefdinir 300 Mg Capsule, 300 MG PO BID Prescribed by: SOCO JOAQUIN on 08/08/192015 Citalopram Hydrobromide 20 Mg Tablet, 1 EACH PO BID, (Reported) Cyclobenzaprine HCl 10 Mg Tablet, 10 MG PO Q8H PRN for SPASMS Prescribed by: MYAH OLIVAS on 07/22/201918 Cyclobenzaprine HCl 10 Mg Tablet, 10 MG PO TID PRN for PAIN-MODERATE (5-7) Prescribed by: SOCO JOAQUIN on 08/02/20 1244 Dulaglutide 1.5 Mg/0.5 Ml Pen.injctr, 1.5 MG SQ WEEK, (Reported) Fluconazole 150 Mg Tablet, 150 MG PO DAILY Prescribed by: SOCO JOAQUIN on 08/08/192102 Hum Insulin Nph/Reg Insulin Hm 10 Ml Vial, 110 UNITS SQ BID, (Reported) Lamotrigine 150 Mg Tablet, 300 MG PO DAILY, (Reported) Lorazepam 1 Mg Tablet, 1 MG SL DAILY PRN PRN for ANXIETY, (Reported) Losartan Potassium 25 Mg Tablet, 1 EACH PO BID, (Reported) Methocarbamol 750 Mg Tablet, 1,500 MG PO Q6H PRN for PAIN-MODERATE (5-7) Prescribed by: SOCO JOAQUIN on 06/02/20 1358 Naproxen Sodium 550 Mg Tablet, 550 MG PO BID PRN for PAIN-MODERATE (5-7) Prescribed by: SOCO JOAQUIN on 06/02/20 1358 Promethazine HCl 25 Mg Tablet, 25 MG PO TID PRN for NAUSEA/VOMITING Prescribed by: SOCO JOAQUIN on 06/22/19 1831 Simvastatin 40 Mg Tablet, 2 TAB PO DAILY, (Reported) Patient Home Medication List Home Medication List Reviewed: Yes Review of Systems Review of Systems Constitutional: No chills, No diaphoresis EENTM: No ear discharge, No ear pain Respiratory: No cough, No short of breath Cardiovascular: No chest pain, No edema Gastrointestinal: No abdominal pain, No nausea, No vomiting Genitourinary: see HPI; No discharge, No dysuria : No LMP: August 21, 2020 Musculoskeletal: No back pain, No joint pain Skin: see HPI; No rash All Other Systems Reviewed Negative Unless Noted: Yes Past Fnlcrap-Sgmalc-Aazous Hx Patient Social History Alcohol Use: Occasionally Uses 2nd Hand Smoke Exposure: No Recent Hopitalizations: No Immunizations Up To Date Tetanus Booster (TDap): More than 5yrs PED Vaccines UTD: Yes Date of Pneumonia Vaccine: Mar 29, 2008 Date of Influenza Vaccine: Dec 27, 2018 Seasonal Allergies Seasonal Allergies: Yes Past Medical History Surgeries: Yes Section Respiratory: No Asthma Cardiac: Yes High Cholesterol, Hypertension Neurological: No Headaches /Migraines Reproductive Disorders: No Sexually Transmitted Disease: No HIV/AIDS: No Genitourinary: No Gastrointestinal: No Abdominal Hernia, Irritable Bowel Musculoskeletal: No Arthritis, Chronic Back Pain Endocrine: Yes Diabetes, Insulin dep HEENT: No Cancer: No Psychosocial: Yes Anxiety, Bipolar, Depression Integumentary: No Blood Disorders: No Adverse Reaction/Blood Tranf: No Family Medical History Alcoholism 19 FATHER Arthritis 19 MOTHER Cataracts 19 MOTHER Diabetes mellitus 19 FATHER 19 MOTHER FH: stroke 19 FATHER Hypercholesterolemia 19 MOTHER Hypertension 19 MOTHER No Family History of: Cardiovascular disease Glaucoma Osteoporosis Prostate cancer No Pertinent Family Hx Physical Exam Vital Signs Vital Signs - First Documented 08/30/20 23:30 Temp 35.6 Pulse 110 Resp 18 B/P (MAP) 156/72 (100) Pulse Ox 96 Capillary Refill : Height, Weight, BMI Height: 5'2.00" Weight: 179lbs. 0oz. 81.583467kp; 39.00 BMI Method:Stated General Appearance: No Apparent Distress, Obese Eyes: Bilateral Eye Normal Inspection, Bilateral Eye PERRL, Bilateral Eye EOMI HEENT: PERRL/EOMI, Pharynx Normal, Moist Mucous Membranes Neck: Normal Inspection, Non Tender Respiratory: Lungs Clear, Normal Breath Sounds, No Accessory Muscle Use, No Respiratory Distress Cardiovascular: Regular Rate, Rhythm, No Edema, Normal Peripheral Pulses Gastrointestinal: Normal Bowel Sounds, Non Tender, Soft Extremity: Normal Capillary Refill, Normal Inspection, No Pedal Edema Neurologic/Psychiatric: Alert, Oriented x3, No Motor/Sensory Deficits Skin: Normal Color, Warm/Dry Progress/Results/Core Measures Suspected Sepsis SIRS Temperature: Pulse: Respiratory Rate: Laboratory Tests 08/30/20 23:44: White Blood Count 9.4 Blood Pressure / Mean: Laboratory Tests 08/30/20 23:44: Creatinine 0.84, Platelet Count 253, Total Bilirubin 0.2 Results/Orders Lab Results Laboratory Tests Test 08/30/20 23:33 08/30/20 23:44 08/30/20 23:53 08/31/20 00:27 Range/Units Glucometer 478 *H 70-110 MG/DL White Blood Count 9.4 4.3-11.0 10^3/uL Red Blood Count 4.85 3.80-5.11 10^6/uL Hemoglobin 13.2 11.5-16.0 g/dL Hematocrit 40 35-52 % Mean Corpuscular Volume 83 80-99 fL Mean Corpuscular Hemoglobin 27 25-34 pg Mean Corpuscular Hemoglobin Concent 33 32-36 g/dL Red Cell Distribution Width 14.1 10.0-14.5 % Platelet Count 253 130-400 10^3/uL Mean Platelet Volume 10.5 9.0-12.2 fL Immature Granulocyte % (Auto) 1 % Neutrophils (%) (Auto) 56 42-75 % Lymphocytes (%) (Auto) 34 12-44 % Monocytes (%) (Auto) 7 0-12 % Eosinophils (%) (Auto) 2 0-10 % Basophils (%) (Auto) 1 0-10 % Neutrophils # (Auto) 5.2 1.8-7.8 10^3/uL Lymphocytes # (Auto) 3.2 1.0-4.0 10^3/uL Monocytes # (Auto) 0.7 0.0-1.0 10^3/uL Eosinophils # (Auto) 0.2 0.0-0.3 10^3/uL Basophils # (Auto) 0.1 0.0-0.1 10^3/uL Immature Granulocyte # (Auto) 0.1 0.0-0.1 10^3/uL Sodium Level 136 135-145 MMOL/L Potassium Level 3.9 3.6-5.0 MMOL/L Chloride Level 102 98-107 MMOL/L Carbon Dioxide Level 16 L 21-32 MMOL/L Anion Gap 18 H 5-14 MMOL/L Blood Urea Nitrogen 11 7-18 MG/DL Creatinine 0.84 0.60-1.30 MG/DL Estimat Glomerular Filtration Rate > 60 BUN/Creatinine Ratio 13 Glucose Level 524 *H 70-105 MG/DL Calcium Level 9.1 8.5-10.1 MG/DL Corrected Calcium 9.3 8.5-10.1 MG/DL Total Bilirubin 0.2 0.1-1.0 MG/DL Aspartate Amino Transf (AST/SGOT) 17 5-34 U/L Alanine Aminotransferase (ALT/SGPT) 21 0-55 U/L Alkaline Phosphatase 102 40-136 U/L Total Protein 7.3 6.4-8.2 GM/DL Albumin 3.8 3.2-4.5 GM/DL Urine Color YELLOW Urine Clarity CLEAR Urine pH 6.0 5-9 Urine Specific Gaines <=1.005 1.016-1.022 Urine Protein NEGATIVE NEGATIVE Urine Glucose (UA) 3+ H NEGATIVE Urine Ketones NEGATIVE NEGATIVE Urine Nitrite NEGATIVE NEGATIVE Urine Bilirubin NEGATIVE NEGATIVE Urine Urobilinogen 0.2 < = 1.0 MG/DL Urine Leukocyte Esterase NEGATIVE NEGATIVE Urine RBC (Auto) NEGATIVE NEGATIVE Urine RBC NONE /HPF Urine WBC 0-2 /HPF Urine Squamous Epithelial Cells 2-5 /HPF Urine Crystals NONE /LPF Urine Bacteria FEW H /HPF Urine Casts NONE /LPF Urine Mucus NEGATIVE /LPF Urine Culture Indicated YES My Orders Orders - MYAH OLIVAS Ed Iv/Invasive Line Start (08/30/20 23:48) Ns Iv 1000 Ml (Sodium Chloride 0.9%) (08/31/20 00:00) Insulin (Regular) Human (Novolin R (Per (08/31/20 00:00) Ua Culture If Indicated (08/30/20 23:48) Urine Bedside (08/30/20 23:48) Cbc With Automated Diff (08/30/20 23:48) Comprehensive Metabolic Panel (08/30/20 23:48) Accucheck Stat ONCE (08/30/20 23:50) Urine Culture (08/30/20 23:53) Medications Given in ED Current Medications Medications Dose Ordered Sig/Ernesto Route Start Time Stop Time Status Last Admin Dose Admin Insulin Human Regular 15 unit ONCE ONCE SC 08/31/20 00:00 08/31/20 00:01 DC 08/31/20 00:00 15 UNIT Vital Signs/I&O 08/30/20 23:30 Temp 35.6 Pulse 110 Resp 18 B/P (MAP) 156/72 (100) Pulse Ox 96 Capillary Refill : Point of Care Testing Finger Stick Blood Glucose: 478 Progress Note : Time: 23:53 Progress Note We may treat her candidiasis with Diflucan p.o. in addition to her topical c nato. Looking for evidence of an infection. She is not been on steroids recently or anything else to explain why she has ctd-lk-widhiuh diabetes other than her diet. We did licensed professional counselor her about her diet and recommended that her compromise is not really a compromise if it involves unadulterated access to concentrated sugar. Patient seems to have made a connection with her sucrose intake. We suggested alternatives. We are going to check some labs give her a liter of fluids and will check some urine for ketones. We will start with some regular insulin. Departure Communication (Admissions) Time/Spoke to Admitting Phy: 00:[address] Rey she agrees to admit to the ICU on DKA order set. Impression Primary Impression: Diabetic ketoacidosis associated with type 2 diabetes mellitus Qualified Codes: E11.10 - Type 2 diabetes mellitus with ketoacidosis without coma Disposition: ADMITTED INPATIENT Condition: Stable Admissions Decision to Admit Reason: Admit from ER (General) Decision to Admit/Date: Aug 30, 2020 Time/Decision to Admit Time: 23:55 Departure-Patient Inst. Ref[place]: [facility] [place] Primary Care Physician LOUISE CORONADO (Family) Primary Care Physician MYAH OLIVAS Aug 30, 2020 23:55
[2020-08-30 23:57] LABS: BASOPHILS # (AUTO) 0.1 10^3/uL (0.0-0.1); BASOPHILS % (AUTO) 1 % (0-10); EOSINOPHILS # (AUTO) 0.2 10^3/uL (0.0-0.3); EOSINOPHILS % (AUTO) 2 % (0-10); HEMATOCRIT 40 % (35-52); HEMOGLOBIN 13.2 g/dL (11.5-16.0); LYMPHOCYTES # (AUTO) 3.2 10^3/uL (1.0-4.0); LYMPHOCYTES % (AUTO) 34 % (12-44); MEAN CORPUSCULAR HEMOGLOBIN 27 pg (25-34); MEAN CORPUSCULAR HGB CONC 33 g/dL (32-36); MEAN CORPUSCULAR VOLUME 83 fL (80-99); MEAN PLATELET VOLUME 10.5 fL (9.0-12.2); MONOCYTES # (AUTO) 0.7 10^3/uL (0.0-1.0); MONOCYTES % (AUTO) 7 % (0-12); NEUTROPHILS # (AUTO) 5.2 10^3/uL (1.8-7.8); NEUTROPHILS % (AUTO) 56 % (42-75); PLATELET COUNT 253 10^3/uL (130-400); WHITE BLOOD COUNT 9.4 10^3/uL (4.3-11.0)
[2020-08-30 23:58] LABS: ALBUMIN 3.8 GM/DL (3.2-4.5)
[2020-08-30 23:59] LABS: CHLORIDE 102 MMOL/L (98-107); POTASSIUM 3.9 MMOL/L (3.6-5.0); SODIUM 136 MMOL/L (135-145)
[2020-08-31] LABS: CALCIUM 9.1 MG/DL (8.5-10.1)
[2020-08-31] MEDS ORDERED: inSUlin (REGULAR) HUMAN 1 UNIT/0.01 ML (CHARGE PER UNIT) SC ONE
[2020-08-31 00:01] LABS: TOTAL PROTEIN 7.3 GM/DL (6.4-8.2)
[2020-08-31 00:02] LABS: CARBON DIOXIDE 16 MMOL/L (21-32)
[2020-08-31 00:03] LABS: BILIRUBIN,URINE NEGATIVE (NEGATIVE); CLARITY,URINE CLEAR; COLOR,URINE YELLOW; GLUCOSE, URINE (UA) 3+ (NEGATIVE); KETONES,URINE NEGATIVE (NEGATIVE); LEUKOCYTE ESTERASE ,URINE NEGATIVE (NEGATIVE); NITRITE,URINE NEGATIVE (NEGATIVE); PROTEIN,URINE NEGATIVE (NEGATIVE)
[2020-08-31 00:03] LABS: BILIRUBIN,TOTAL 0.2 MG/DL (0.1-1.0)
[2020-08-31 00:04] LABS: ALKALINE PHOSPHATASE 102 U/L (40-136)
[2020-08-31 00:05] LABS: CREATININE SERUM 0.84 MG/DL (0.60-1.30); GFR ESTIMATED > 60
[2020-08-31 00:06] LABS: BUN/CREATININE RATIO 13
[2020-08-31 00:07] LABS: ALANINE AMINOTRANSFERASE 21 U/L (0-55)
[2020-08-31 00:09] LABS: WBC,URINE 0-2 /HPF
[2020-08-31 00:10] LABS: BACTERIA,URINE FEW /HPF
[2020-08-31 00:21] LABS: GLUCOSE 524 MG/DL (70-105)
[2020-08-31] MEDS ORDERED: ONDANSETRON 4 MG/2 ML (SDV) Z0FRAN IVP PRN (01:45)
[2020-08-31] MEDS ORDERED: NS IV 1000 ML 1,000 ML IV SCH ×2 (01:45)
[2020-08-31] MEDS ORDERED: ACETAMINOPHEN 325 MG TABLET PO PRN (01:45)
[2020-08-31] MEDS: 1/2 NS IV SOLUTION 1,000 ML IV SCH ×3 (02:05→07:52)
[2020-08-31] MEDS: POTASSIUM CL 10MEQ/50ML IVPB 50 ML IV SCH ×6 (02:06→11:11)
[2020-08-31 02:55] LABS: CHLORIDE 106 MMOL/L (98-107); POTASSIUM 3.8 MMOL/L (3.6-5.0); SODIUM 138 MMOL/L (135-145)
[2020-08-31 02:56] LABS: CALCIUM 8.8 MG/DL (8.5-10.1)
[2020-08-31 02:57] LABS: GLUCOSE 348 MG/DL (70-105)
[2020-08-31 02:58] LABS: CARBON DIOXIDE 18 MMOL/L (21-32)
[2020-08-31 03:01] LABS: CREATININE SERUM 0.67 MG/DL (0.60-1.30); GFR ESTIMATED > 60
[2020-08-31 03:02] LABS: BUN/CREATININE RATIO 15
[2020-08-31] MEDS: D5 1/2 NS 1000 ML IV SOLUTION 1,000 ML IV SCH ×2 (04:14→11:11)
[2020-08-31 04:26] LABS: BASOPHILS # (AUTO) 0.1 10^3/uL (0.0-0.1); BASOPHILS % (AUTO) 1 % (0-10); EOSINOPHILS # (AUTO) 0.2 10^3/uL (0.0-0.3); EOSINOPHILS % (AUTO) 2 % (0-10); HEMATOCRIT 36 % (35-52); HEMOGLOBIN 11.9 g/dL (11.5-16.0); LYMPHOCYTES # (AUTO) 3.3 10^3/uL (1.0-4.0); LYMPHOCYTES % (AUTO) 36 % (12-44); MEAN CORPUSCULAR HEMOGLOBIN 27 pg (25-34); MEAN CORPUSCULAR HGB CONC 33 g/dL (32-36); MEAN CORPUSCULAR VOLUME 83 fL (80-99); MEAN PLATELET VOLUME 10.4 fL (9.0-12.2); MONOCYTES # (AUTO) 0.7 10^3/uL (0.0-1.0); MONOCYTES % (AUTO) 8 % (0-12); NEUTROPHILS # (AUTO) 4.9 10^3/uL (1.8-7.8); NEUTROPHILS % (AUTO) 53 % (42-75); PLATELET COUNT 214 10^3/uL (130-400); WHITE BLOOD COUNT 9.2 10^3/uL (4.3-11.0)
[2020-08-31 04:44] LABS: CHLORIDE 106 MMOL/L (98-107); POTASSIUM 3.6 MMOL/L (3.6-5.0); SODIUM 138 MMOL/L (135-145)
[2020-08-31 04:45] LABS: CALCIUM 8.8 MG/DL (8.5-10.1); GLUCOSE 263 MG/DL (70-105)
[2020-08-31 04:47] LABS: CARBON DIOXIDE 18 MMOL/L (21-32)
[2020-08-31 04:49] LABS: CREATININE SERUM 0.59 MG/DL (0.60-1.30); GFR ESTIMATED > 60; PHOSPHORUS 2.2 MG/DL (2.3-4.7)
[2020-08-31 04:50] LABS: BUN/CREATININE RATIO 15
[2020-08-31 04:52] LABS: MAGNESIUM 1.7 MG/DL (1.6-2.4)
[2020-08-31] MEDS: FAMOTIDINE 20 MG (PEPCID) TABLET PO SCH ×2 (06:15→06:35)
--- NOTE | 2020-08-31 07:44 | History & Physical-Hospitalist ---
History of Present Illness HPI/Chief Complaint Chief complaint: High sugar History of present illness: This is a 45-year-old white female clinic patient of [facility] Jose Coronado who presented to the ER with high sugar. Patient has had an increase in insulin but missed her Tresiba so she thinks that may be it. Patient really wants to go home to take care of her but she still remains on the insulin drip we did go ahead and give her the 200 units of long-acting and will move down to the floor. Patient appears to be very unmotivated. Source: patient Exam Limitations: no limitations Date Seen 08/31/20 Time Seen by a Provider: 11:00 Attending Physician Amy Rey DO [facility] Referring Physician Date of Admission Aug 31, 2020 at 00:30 Home Medications & Allergies Home Medications Reviewed patient Home Medication Reconciliation performed by pharmacy medication reconciliations organic extractions technician and/or nursing. Patients Allergies have been reviewed. Allergies Allergies Coded Allergies azithromycin (Unverified Allergy, Unknown, 10/28/13) CHEST PAIN prednisone (Unverified Adverse Reaction, Unknown, RAISES BLOOD SUGAR, 10/28/13) Past Qwwbyva-Kptgrd-Fdafza Hx Patient Social History Marrital Status: Employed/Student: unemployed Smoking Status: Never a Smoker Immunizations Up To Date Date of Influenza Vaccine: Dec 28, 2019 Hepatitis A: Yes Hepatitis B: Yes PED Vaccines UTD: Yes Date of Pneumonia Vaccine: Mar 29, 2008 Seasonal Allergies Seasonal Allergies: Yes Current Status Communicates: Verbally Primary Language: Sri Lankan Preferred Spoken Language: [place]ankan Is interpretation needed?: No Past Medical History Surgeries: Section Asthma High Cholesterol, Hypertension Headaches /Migraines Sexually Transmitted Disease: No HIV/AIDS: No Abdominal Hernia, Irritable Bowel Arthritis, Chronic Back Pain Diabetes, Insulin dep Anxiety, Bipolar, Depression Blood Disorders: No Adverse Reaction/Blood Tranf: No Family Medical History Alcoholism 19 FATHER Arthritis 19 MOTHER Cataracts 19 MOTHER Diabetes mellitus 19 FATHER 19 MOTHER FH: stroke 19 FATHER Hypercholesterolemia 19 MOTHER Hypertension 19 MOTHER No Family History of: Cardiovascular disease Glaucoma Osteoporosis Prostate cancer No Pertinent Family Hx Review of Systems Constitutional: see HPI, malaise, weakness Physical Exam Physical Exam Vital Signs Vital Signs - First Documented 08/30/20 23:30 Temp 35.6 Pulse 110 Resp 18 B/P (MAP) 156/72 (100) Pulse Ox 96 Capillary Refill : Less Than 3 Seconds Height, Weight, BMI Height: 5'2.00" Weight: 179lbs. 0oz. 81.592695oa; 42.38 BMI Method:Stated General Appearance: No Apparent Distress, Chronically ill, Obese Eyes: Right Eye Normal Inspection, Right Eye PERRL HEENT: PERRL/EOMI, Normal ENT Inspection, Pharynx Normal, Moist Mucous Membranes Neck: Full Range of Motion, Normal Inspection, Non Tender Respiratory: Chest Non Tender, Lungs Clear, Normal Breath Sounds, No Accessory Muscle Use, No Respiratory Distress Cardiovascular: Regular Rate, Rhythm, No Edema, No Gallop, No JVD, No Murmur, Normal Peripheral Pulses Gastrointestinal: Normal Bowel Sounds, No Organomegaly, No Pulsatile Mass, Non Tender, Soft Back: Normal Inspection, No CVA Tenderness, No Vertebral Tenderness Extremity: Normal Capillary Refill, Normal Inspection, Normal Range of Motion, Non Tender, No Calf Tenderness, No Pedal Edema Neurologic/Psychiatric: Alert, Oriented x3, No Motor/Sensory Deficits, Normal Mood/Affect Skin: Normal Color, Warm/Dry Lymphatic: No Adenopathy Results Results/Procedures Labs Laboratory Tests 08/30/20 23:44 08/31/20 01:55 08/31/20 04:05 08/31/20 08:30 08/31/20 12:20 Patient resulted labs reviewed. Assessment/Plan Admission Diagnosis Assessment: DKA Dehydration Obesity Hypertension Apathy Plan: Insulin drip transition to subcu insulin Monitor closely Admission Status: Inpatient Order (span 2 midnights) Reason for Inpatient Admission: DKA Diagnosis/Problems Diagnosis/Problems (1) Diabetic ketoacidosis associated with type 2 diabetes mellitus Status: Acute Qualifiers: Diabetes mellitus complication detail: without coma Qualified Codes: E11.10 - Type 2 diabetes mellitus with ketoacidosis without coma AMY REY DO Aug 31, 2020 07:44
[2020-08-31] MEDS: ENOXAPARIN 40 MG/0.4 ML (LOVENOX) SYR SC SCH ×2 (08:04→20:32)
[2020-08-31 08:46] LABS: CHLORIDE 105 MMOL/L (98-107); POTASSIUM 3.9 MMOL/L (3.6-5.0); SODIUM 137 MMOL/L (135-145)
[2020-08-31 08:47] LABS: CALCIUM 9.1 MG/DL (8.5-10.1)
[2020-08-31 08:48] LABS: GLUCOSE 209 MG/DL (70-105)
[2020-08-31 08:50] LABS: CARBON DIOXIDE 20 MMOL/L (21-32)
[2020-08-31 08:52] LABS: CREATININE SERUM 0.59 MG/DL (0.60-1.30); GFR ESTIMATED > 60
[2020-08-31 08:53] LABS: BUN/CREATININE RATIO 14
[2020-08-31] MEDS ORDERED: PANT40TA2 PO (09:20)
[2020-08-31] MEDS ORDERED: PIOG45TA7 PO (09:20)
[2020-08-31] MEDS ORDERED: MTP25TSR PO (09:20)
[2020-08-31] MEDS ORDERED: LISI20TA26 PO (09:20)
[2020-08-31] MEDS ORDERED: FENO145T26 PO (09:20)
[2020-08-31] MEDS ORDERED: ARIP10TA10 PO (09:20)
[2020-08-31] MEDS ORDERED: NF-LAMO200 PO (09:20)
[2020-08-31] MEDS ORDERED: CITA40TA19 PO (09:20)
[2020-08-31] MEDS ORDERED: HYDR25TA4 PO (09:20)
[2020-08-31] MEDS ORDERED: TIZA4TAB4 PO (09:20)
[2020-08-31] MEDS ORDERED: GLIM4TAB56 PO (09:20)
[2020-08-31] MEDS ORDERED: NAPR220C61 PO (09:20)
[2020-08-31] MEDS ORDERED: ASPI-999 PO (09:20)
[2020-08-31] MEDS ORDERED: LORA-404 PO (09:20)
[2020-08-31] MEDS ORDERED: INSU200I4 SQ (09:20)
[2020-08-31] MEDS ORDERED: DAPA10TA PO (09:20)
[2020-08-31] MEDS: MAGNESIUM 1 GM/100 ML IVPB 100 ML IV SCH ×2 (09:23→10:46)
[2020-08-31 12:42] LABS: CHLORIDE 104 MMOL/L (98-107); POTASSIUM 3.9 MMOL/L (3.6-5.0); SODIUM 136 MMOL/L (135-145)
[2020-08-31 12:44] LABS: GLUCOSE 231 MG/DL (70-105)
[2020-08-31 12:46] LABS: CARBON DIOXIDE 17 MMOL/L (21-32)
[2020-08-31 12:48] LABS: CREATININE SERUM 0.59 MG/DL (0.60-1.30); GFR ESTIMATED > 60
[2020-08-31 12:49] LABS: BUN/CREATININE RATIO 10
[2020-08-31] MEDS ORDERED: NAPROXEN 250 MG (NAPROSYN) TABLET PO PRN (13:00)
[2020-08-31] MEDS ORDERED: LORazepam 0.5 MG (ATIVAN) TABLET PO PRN (13:00)
[2020-08-31] MEDS ORDERED: NON-FORMULARY MEDICATION 1 EA EA (Dulaglutide (Trulicity) 1.5 MG) SQ SCH (13:00)
[2020-08-31] MEDS ORDERED: NAPROXEN SODIUM PO PRN (13:00)
[2020-08-31 16:00] VITALS: BP 103/63
[2020-08-31] MEDS: GLIMEPIRIDE 4 MG (AMARYL) TAB PO SCH (16:48)
[2020-08-31 23:39] VITALS: BP 102/67
[2020-09-01 04:00] VITALS: BP 132/78
[2020-09-01] MEDS ORDERED: KCL 20 MEQ TAB (K-DUR) PO SCH (06:00)
[2020-09-01] MEDS ORDERED: POTASSIUM CL 10MEQ/50ML IVPB 50 ML IV SCH (06:00)
[2020-09-01] MEDS ORDERED: MAGNESIUM 1 GM/100 ML IVPB 100 ML IV SCH (06:00)
[2020-09-01] MEDS ORDERED: PIOGLITAZONE 30MG (ACTOS) TAB PO SCH (07:00)
[2020-09-01] MEDS: GLIMEPIRIDE 4 MG (AMARYL) TAB PO SCH (07:18)
[2020-09-01 08:00] VITALS: BP 139/89
[2020-09-01] MEDS ORDERED: NON-FORMULARY MEDICATION 1 EA EA (Citalopram Hydrobromide (Celexa) 40 MG) PO SCH (09:00)
[2020-09-01] MEDS ORDERED: PIOGLITAZONE HCL 45 MG PO SCH (09:00)
[2020-09-01] MEDS ORDERED: PANTOPRAZOLE 40 MG (PROTONIX) TAB PO SCH (09:00)
[2020-09-01] MEDS ORDERED: lisINopril 20 MG (PRINIVIL) TABLET PO SCH (09:00)
[2020-09-01] MEDS ORDERED: NON-FORMULARY MEDICATION 1 EA EA (Fenofibrate Nanocrystallized (Fenofibrate) 145 MG) PO SCH (09:00)
[2020-09-01] MEDS ORDERED: INSULIN DEGLUDEC 200 UNIT SQ SCH (09:00)
[2020-09-01] MEDS ORDERED: NON-FORMULARY MEDICATION 1 EA EA (Lamotrigine (Lamictal) 200 MG) PO SCH (09:00)
[2020-09-01] MEDS ORDERED: FENOFIBRATE 134 MG (LOFIBRA) CAPSULE PO SCH (09:00)
[2020-09-01] MEDS ORDERED: ASPIRIN 81 MG CHEW (CHILDREN'S ASA) PO SCH (09:00)
[2020-09-01] MEDS ORDERED: NON-FORMULARY MEDICATION 1 EA EA (Dapagliflozin Propanediol (Farxiga) 10 MG) PO SCH (09:00)
[2020-09-01 09:07] LABS: BASOPHILS # (AUTO) 0.1 10^3/uL (0.0-0.1); BASOPHILS % (AUTO) 1 % (0-10); EOSINOPHILS # (AUTO) 0.2 10^3/uL (0.0-0.3); EOSINOPHILS % (AUTO) 2 % (0-10); HEMATOCRIT 42 % (35-52); HEMOGLOBIN 13.5 g/dL (11.5-16.0); LYMPHOCYTES # (AUTO) 2.4 10^3/uL (1.0-4.0); LYMPHOCYTES % (AUTO) 30 % (12-44); MEAN CORPUSCULAR HEMOGLOBIN 27 pg (25-34); MEAN CORPUSCULAR HGB CONC 33 g/dL (32-36); MEAN CORPUSCULAR VOLUME 83 fL (80-99); MEAN PLATELET VOLUME 10.4 fL (9.0-12.2); MONOCYTES # (AUTO) 0.4 10^3/uL (0.0-1.0); MONOCYTES % (AUTO) 6 % (0-12); NEUTROPHILS # (AUTO) 4.7 10^3/uL (1.8-7.8); NEUTROPHILS % (AUTO) 61 % (42-75); PLATELET COUNT 238 10^3/uL (130-400); WHITE BLOOD COUNT 7.8 10^3/uL (4.3-11.0)
[2020-09-01] MEDS: ENOXAPARIN 40 MG/0.4 ML (LOVENOX) SYR SC SCH (09:12)
[2020-09-01] MEDS: FAMOTIDINE 20 MG (PEPCID) TABLET PO SCH (09:12)
[2020-09-01 09:24] LABS: ALBUMIN 3.8 GM/DL (3.2-4.5); CHLORIDE 105 MMOL/L (98-107); POTASSIUM 3.8 MMOL/L (3.6-5.0); SODIUM 139 MMOL/L (135-145)
[2020-09-01 09:25] LABS: CALCIUM 9.5 MG/DL (8.5-10.1)
[2020-09-01 09:27] LABS: GLUCOSE 212 MG/DL (70-105); TOTAL PROTEIN 7.6 GM/DL (6.4-8.2)
[2020-09-01 09:28] LABS: BILIRUBIN,TOTAL 0.3 MG/DL (0.1-1.0); CARBON DIOXIDE 20 MMOL/L (21-32)
[2020-09-01 09:30] LABS: ALKALINE PHOSPHATASE 71 U/L (40-136); CREATININE SERUM 0.63 MG/DL (0.60-1.30); GFR ESTIMATED > 60
[2020-09-01 09:31] LABS: BUN/CREATININE RATIO 13
[2020-09-01 09:33] LABS: ALANINE AMINOTRANSFERASE 23 U/L (0-55)
[2020-09-01 12:01] VITALS: BP 128/76
--- NOTE | 2020-09-01 12:09 | Discharge Summary ---
Discharge Summary Hospital Course Was the Problem List Reviewed?: Yes Problems/Dx: (1) Diabetic ketoacidosis associated with type 2 diabetes mellitus Status: Acute Qualifiers: Qualified Codes: E11.10 - Type 2 diabetes mellitus with ketoacidosis without coma Hospital Course Date of Admission: Aug 31, 2020 at 00:30 Admission Diagnosis : Family Physician/Provider: Jose Coronado Date of Discharge: 09/01/20 Discharge Diagnosis: DKA, diabetes with severe insulin resistance Hospital Course: Brief hospital course after she was admitted with DKA placed on supportive care and insulin drip per protocol. She stabilized quickly blood sugars returned back to her normal of 200 patient was discharged in improved condition. Labs and Pending Lab Test: Laboratory Tests 08/31/20 12:20: Sodium Level 136, Potassium Level 3.9, Chloride Level 104, Carbon Dioxide Level 17L, Anion Gap 15H, Blood Urea Nitrogen 6L, Creatinine 0.59L, Estimat Glomerular Filtration Rate > 60, BUN/Creatinine Ratio 10, Glucose Level 231H, Calcium Level 9.0 08/31/20 12:51: Glucometer 211H 08/31/20 15:54: Glucometer 184H 08/31/20 19:55: Glucometer 259H 09/01/20 06:16: Glucometer 117H 09/01/20 08:45: White Blood Count 7.8, Red Blood Count 4.99, Hemoglobin 13.5, Hematocrit 42, Mean Corpuscular Volume 83, Mean Corpuscular Hemoglobin 27, Mean Corpuscular Hemoglobin Concent 33, Red Cell Distribution Width 14.2, Platelet Count 238, Mean Platelet Volume 10.4, Immature Granulocyte % (Auto) 1, Neutrophils (%) (Auto) 61, Lymphocytes (%) (Auto) 30, Monocytes (%) (Auto) 6, Eosinophils (%) (Auto) 2, Basophils (%) (Auto) 1, Neutrophils # (Auto) 4.7, Lymphocytes # (Auto) 2.4, Monocytes # (Auto) 0.4, Eosinophils # (Auto) 0.2, Basophils # (Auto) 0.1, Immature Granulocyte # (Auto) 0.1, Sodium Level 139, Potassium Level 3.8, Chloride Level 105, Carbon Dioxide Level 20L, Anion Gap 14, Blood Urea Nitrogen 8, Creatinine 0.63, Estimat Glomerular Filtration Rate > 60, BUN/Creatinine Ratio 13, Glucose Level 212H, Calcium Level 9.5, Corrected Calcium 9.7, Total B ilirubin 0.3, Aspartate Amino Transf (AST/SGOT) 24, Alanine Aminotransferase (ALT/SGPT) 23, Alkaline Phosphatase 71, Total Protein 7.6, Albumin 3.8 09/01/20 10:49: Glucometer 216H Microbiology 08/31/20 MRSA Screen - Final, Complete MRSA not isolated Home Meds Active Reported Hydrochlorothiazide 25 Mg Tablet 25 Mg PO DAILY Naproxen Sodium 220 Mg Capsule 2 Tab PO BID PRN Amaryl (Glimepiride) 4 Mg Tablet 4 Mg PO BIDAC Aspirin 81 Mg Tab.chew 81 Mg PO DAILY Ativan (Lorazepam) 0.5 Mg Tablet 0.5 Mg PO DAILY PRN 7 Days Celexa (Citalopram Hydrobromide) 40 Mg Tablet 40 Mg PO DAILY Farxiga (Dapagliflozin Propanediol) 10 Mg Tablet 10 Mg PO DAILY Fenofibrate (Fenofibrate Nanocrystallized) 145 Mg Tablet 145 Mg PO DAILY Lamictal (Lamotrigine) 200 Mg Tab 200 Mg PO DAILY Lisinopril 20 Mg Tablet 20 Mg PO DAILY Protonix (Pantoprazole Sodium) 40 Mg Tablet.dr 40 Mg PO DAILY Tizanidine HCl 4 Mg Tablet 4 Mg PO HS Metoprolol Succinate 25 Mg Tab.er.24h 25 Mg PO DAILY Tresiba Flextouch U-200 (Insulin Degludec) 200 Unit/1 Ml Insuln.pen 200 Units SQ DAILY pt takes 2 100 unit sq injections Abilify (Aripiprazole) 10 Mg Tablet 10 Mg PO DAILY Actos (Pioglitazone HCl) 45 Mg Tablet 45 Mg PO DAILY Trulicity (Dulaglutide) 1.5 Mg/0.5 Ml Pen.injctr 1.5 Mg SQ WEEK takes on Tuesdays Assessment/Pt Instructions [facility] in 1 week Discharge Planning: <30 minutes discharge planning Discharge Physical Examination Vital Signs Vital Signs Date Time Temp Pulse Resp B/P (MAP) Pulse Ox O2 Delivery O2 Flow Rate FiO2 09/01/20 12:01 36.5 89 20 128/76 (93) 95 Room Air General Appearance: No Apparent Distress, WD/WN, Chronically ill Allergies: Coded Allergies: azithromycin (Unverified Allergy, Unknown, 10/28/13) CHEST PAIN prednisone (Unverified Adverse Reaction, Unknown, RAISES BLOOD SUGAR, 10/28/13) Discharge Summary Date of Admission Aug 31, 2020 at 00:30 Date of Discharge Discharge Date: Sep 01, 2020 Admission Diagnosis Assessment: DKA Dehydration Obesity Hypertension Apathy Plan: Insulin drip transition to subcu insulin Monitor closely Discharge Diagnosis (1) Diabetic ketoacidosis associated with type 2 diabetes mellitus Status: Acute Qualifiers: Qualified Codes: E11.10 - Type 2 diabetes mellitus with ketoacidosis without coma ETHAN RAYMUNDO DO Sep 01, 2020 12:09
[2020-09-01 12:29] VITALS: BP 128/76
== END 2020-09-01 12:40 | disposition home or self-care (01) | DRG 638 ==
LOC: EDUNIT# 23:22 → ER 23:27 → ICU 08-31 00:30 → 4TH 08-31 15:33
PROVIDERS: ADMIT Internal Medicine; ATTEND Internal Medicine
DX: E11.10 Type 2 diabetes mellitus with ketoacidosis without coma (principal); Z68.41 Body mass index [BMI] 40.0-44.9, adult; J45.909 Unspecified asthma, uncomplicated; E78.00 Pure hypercholesterolemia, unspecified; I10 Essential (primary) hypertension; G43.909 Migraine, unspecified, not intractable, without status migrainosus; K58.9 Irritable bowel syndrome, unspecified; M19.90 Unspecified osteoarthritis, unspecified site; G89.29 Other chronic pain; M54.9 Dorsalgia, unspecified; Z79.4 Long term (current) use of insulin; Z79.899 Other long term (current) drug therapy; F41.9 Anxiety disorder, unspecified; F31.9 Bipolar disorder, unspecified; E86.0 Dehydration; E66.9 Obesity, unspecified; R45.3 Demoralization and apathy; E88.81 Metabolic syndrome and other insulin resistance
CPT/HCPCS: 36415; 80048; 80053; 81000; 82947; 83036; 83735; 84100; 84703; 85025; 87081; 87088

== ENCOUNTER → 2020-09-02 | Outpatient (CLI) | payer MEDICARE, MEDICAID ==
[~2020-09-02] MED LIST changes: +ARIP10TA10 PO; +ASPI-999 PO; +CITA40TA19 PO; +DAPA10TA PO; +FENO145T26 PO; +GLIM4TAB56 PO; +HYDR25TA4 PO; +INSU200I4 SQ; +LISI20TA26 PO; +LORA-404 PO; +MTP25TSR PO; +NAPR220C61 PO; +NF-LAMO200 PO; +PANT40TA2 PO; +PIOG45TA7 PO; +TIZA4TAB4 PO
== END ==
LOC: CARD 08:30
PROVIDERS: ATTEND Internal Medicine Cardiovascular Disease
DX: R06.09 Other forms of dyspnea (principal)
CPT/HCPCS: 93306

== ENCOUNTER → 2020-09-06 | Outpatient (CLI) | payer MEDICARE, MEDICAID ==
[~2020-09-06] MED LIST changes: +REGADENOSON 0.4 MG/5 ML SYR (LEXISCAN) IV ONE
[2020-09-06] MEDS: CATHETER FLUSH 10 ML SYR IV PRN ×2 (07:33→07:34)
[2020-09-06 08:51] VITALS: BP 157/79
--- NOTE | 2020-09-06 21:43 | STRESS TEST ---
DATE OF SERVICE: RESTING AND POST REGADENOSON TECHNETIUM-99M TETROFOSMIN SPECT CT IMAGING ORDERING PHYSICIAN: Jacqueline Gagnon MD PRIMARY PHYSICIAN: [facility]. CLINICAL DIAGNOSIS: Chest discomfort. Baseline images were carried out after injection of 10.97 mCi of technetium-99m Tetrofosmin. This was followed by 0.4 mg regadenoson and 32.1 mCi of technetium-99m Tetrofosmin for stress imaging. The electrocardiogram showed sinus tachycardia at baseline. It did not change significantly with regadenoson infusion. Review of images at rest and following stress does not indicate any significant perfusion defects consistent with significant myocardial ischemia or infarction. Gated images show normal global left ventricular systolic function with normal regional wall motion. Left ventricular ejection fraction is calculated to be 76%. Left ventricular end diastolic volume is 26 mL. TID is absent (0.99). CONCLUSIONS: 1. No evidence of any significant myocardial ischemia or infarction on this study. 2. Normal regional wall motion. 3. Normal global left ventricular systolic function with a calculated ejection fraction of 76%. Job ID: [id number] DocumentID: [id number] Dictated Date: 09/06/2020 17:17:56 [employer] General Supervisor Date: 09/06/2020 21:42:51 Dictated By: JACQUELINE GAGNON MD, MA, FACP, FACC,
== END ==
LOC: CARD 08:00
PROVIDERS: ATTEND Internal Medicine Cardiovascular Disease
DX: R07.89 Other chest pain (principal)
CPT/HCPCS: 78452; 93017; A9502

== ENCOUNTER 2020-10-24 12:01 | Emergency (ER) | payer MEDICARE, MEDICAID ==
[~2020-10-24] VITALS: Ht 157.4 cm; Wt 103.0 kg
[~2020-10-24 12:01] MED LIST changes: -REGADENOSON 0.4 MG/5 ML SYR (LEXISCAN) IV ONE
--- NOTE | 2020-10-24 12:51 | ED General ---
General Chief Complaint: Abdominal/GI Problems Stated Complaint: VOMITING;HEADACHE Nursing Triage Note: Pt c/o vomiting once yesterday, once today, diarrhea yesterday and none today, midline abdominal pain, insomnia. Denies COVID exposure. Source of Information: Patient Exam Limitations: No Limitations (SOCO JOAQUIN APRN) History of Present Illness Date Seen by Provider: Oct 24, 2020 Time Seen by Provider: 12:49 Initial Comments Nausea, vomiting, headache, diarrhea, insomnia, headache x 2 days Timing/Duration: 2-3 Days Severity: Moderate Associated Systoms: Headaches, Nausea/Vomiting (SOCO JOAQUIN APRN) Allergies and Home Medications Allergies Coded Allergies: azithromycin (Unverified Allergy, Unknown, 10/28/13) CHEST PAIN prednisone (Unverified Adverse Reaction, Unknown, RAISES BLOOD SUGAR, 10/28/13) Home Medications Aripiprazole 10 Mg Tablet, 10 MG PO DAILY, (Reported) Aspirin 81 Mg Tab.chew, 81 MG PO DAILY, (Reported) Citalopram Hydrobromide 40 Mg Tablet, 40 MG PO DAILY, (Reported) Dapagliflozin Propanediol 10 Mg Tablet, 10 MG PO DAILY, (Reported) Dulaglutide 1.5 Mg/0.5 Ml Pen.injctr, 1.5 MG SQ WEEK, (Reported) takes on Tuesdays Fenofibrate Nanocrystallized 145 Mg Tablet, 145 MG PO DAILY, (Reported) Glimepiride 4 Mg Tablet, 4 MG PO BIDAC, (Reported) Hydrochlorothiazide 25 Mg Tablet, 25 MG PO DAILY, (Reported) Insulin Degludec 200 Unit/1 Ml Insuln.pen, 200 UNITS SQ DAILY, (Reported) pt takes 2 100 unit sq injections Lamotrigine 200 Mg Tab, 200 MG PO DAILY, (Reported) Lisinopril 20 Mg Tablet, 20 MG PO DAILY, (Reported) Lorazepam 0.5 Mg Tablet, 0.5 MG PO DAILY PRN for ANXIETY, (Reported) Metoprolol Succinate 25 Mg Tab.er.24h, 25 MG PO DAILY, (Reported) Naproxen Sodium 220 Mg Capsule, 2 TAB PO BID PRN for PAIN-MILD (1-4), (Reported) Pantoprazole Sodium 40 Mg Tablet.dr, 40 MG PO DAILY, (Reported) Pioglitazone HCl 45 Mg Tablet, 45 MG PO DAILY, (Reported) Tizanidine HCl 4 Mg Tablet, 4 MG PO HS, (Reported) Patient Home Medication List Home Medication List Reviewed: Yes (SOCO JOAQUIN APRN) Review of Systems Review of Systems Constitutional: see HPI EENTM: see HPI Respiratory: no symptoms reported Cardiovascular: no symptoms reported Genitourinary: no symptoms reported Musculoskeletal: no symptoms reported Skin: no symptoms reported Psychiatric/Neurological: No Symptoms Reported Hematologic/Lymphatic: No Symptoms Reported (SOCO JOAQUIN APRN) Past Oupebpp-Slrorv-Poczwa Hx Patient Social History Tobacco Use?: No Substance use?: No Alcohol Use?: No Pt feels they are or have been: No (SOCO JOAQUIN APRN) Immunizations Up To Date Tetanus Booster (TDap): More than 5yrs PED Vaccines UTD: Yes First/Initial COVID19 Vaccinat: 06/16 Second COVID19 Vaccination Pritesh: 07/17 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 (SOCO JOAQUIN APRN) Seasonal Allergies Seasonal Allergies: Yes (SOCO JOAQUIN APRN) Past Medical History Surgeries: Yes Section Respiratory: No Asthma Cardiac: Yes High Cholesterol, Hypertension Neurological: No Headaches /Migraines Reproductive Disorders: No Sexually Transmitted Disease: No HIV/AIDS: No Genitourinary: No Gastrointestinal: No Abdominal Hernia, Irritable Bowel Musculoskeletal: No Arthritis, Chronic Back Pain Endocrine: Yes Diabetes, Insulin dep HEENT: No Cancer: No Psychosocial: Yes Anxiety, Bipolar, Depression Integumentary: No Blood Disorders: No Adverse Reaction/Blood Tranf: No (SOCO JOAQUIN APRN) Family Medical History Alcoholism 19 FATHER Arthritis 19 MOTHER Cataracts 19 MOTHER Diabetes mellitus 19 FATHER 19 MOTHER FH: stroke 19 FATHER Hypercholesterolemia 19 MOTHER Hypertension 19 MOTHER No Family History of: Cardiovascular disease Glaucoma Osteoporosis Prostate cancer No Pertinent Family Hx (SOCO JOAQUIN APRN) Physical Exam Vital Signs Vital Signs - First Documented 10/24/20 12:30 Temp 37.0 Pulse 93 Resp 18 B/P (MAP) 144/70 (94) Pulse Ox 96 O2 Delivery Room Air (DELMA PIMENTEL MD) Vital Signs Capillary Refill : Less Than 3 Seconds (SOCO JOAQUIN APRN) Height, Weight, BMI Height: 5'2.00" Weight: 179lbs. 0oz. 81.642497ir; 41.00 BMI Method:Stated General Appearance: No Apparent Distress, WD/WN Eyes: Bilateral Eye Normal Inspection, Bilateral Eye PERRL (SOCO JOAQUIN APRN) Progress/Results/Core Measures Suspected Sepsis SIRS Temperature: Pulse: 93 Respiratory Rate: 18 Blood Pressure 144 /70 Mean: 94 (SOCO JOAQUIN APRN) Results/Orders Lab Results Laboratory Tests Test 10/24/20 12:38 Range/Units SARS-CoV-2 RNA (RT-PCR) Not Detected Not Detecte (DELMA PIMENTEL MD) Vital Signs/I&O 10/24/20 10/24/20 12:30 13:47 Temp 37.0 37.0 Pulse 93 94 Resp 18 18 B/P (MAP) 144/70 (94) 128/55 (94) Pulse Ox 96 96 O2 Delivery Room Air Room Air (DELMA PIMENTEL MD) Vital Signs/I&O Capillary Refill : Less Than 3 Seconds (SOCO JOAQUIN APRN) Blood Pressure Mean: 94 Departure Impression Primary Impression: General symptom Disposition: 01 HOME, SELF-CARE Condition: Stable Departure-Patient Inst. Decision time for Depature: 13:32 (SOCO JOAQUIN APRN) [place]: [facility] [place] Primary Care Physician LOUISE STRATTON (Family) Primary Care Physician Patient Instructions: No Instuctions Given ATTENDING PHYSICIAN NOTE: I was physically present as attending physician in the emergency department during the care of this patient, but I was not directly involved in the decision making or delivery of care for this patient. (DELMA PIMENTEL MD) SOCO JOAQUIN APRN Oct 24, 2020 12:51 DELMA PIMENTEL MD Oct 25, 2020 19:22
[2020-10-24 13:47] VITALS: BP 128/55
== END 2020-10-24 13:45 | disposition home or self-care (01) ==
LOC: EDUNIT# 12:01 → ER 12:02
DX: R68.89 Other general symptoms and signs (principal); J45.909 Unspecified asthma, uncomplicated; I10 Essential (primary) hypertension; E78.00 Pure hypercholesterolemia, unspecified; E11.9 Type 2 diabetes mellitus without complications; F31.9 Bipolar disorder, unspecified; F41.9 Anxiety disorder, unspecified; Z20.822 Contact with and (suspected) exposure to COVID-19; Z79.82 Long term (current) use of aspirin; Z79.899 Other long term (current) drug therapy; Z79.4 Long term (current) use of insulin
CPT/HCPCS: 87636; 99282

== ENCOUNTER 2020-12-02 16:26 | Emergency (ER) | payer MEDICARE, MEDICAID ==
[~2020-12-02] VITALS: Ht 157.5 cm; Wt 101.2 kg
[2020-12-02] MEDS ORDERED: ANTACID SUSP 30 ML UDC (MYLANTA) PO ONE (17:15)
[2020-12-02] MEDS ORDERED: LIDOCAINE 2% VISCOUS 15 ML UDC PO ONE (17:15)
--- NOTE | 2020-12-02 17:28 | ED General ---
General Chief Complaint: COVID19 Suspect/Confirmed Stated Complaint: N/V/D,LETHARGY Nursing Triage Note: PT AMB TO RM 9 W C/O N/V, MUIR, LACK OF APPETITE, AND FATIGUE SX WEDNESDAY. PT REPORTS SHE WAS POSS EXPOSED TO COVID LAST WEEK. Source of Information: Patient Exam Limitations: No Limitations History of Present Illness Date Seen by Provider: Dec 02, 2020 Time Seen by Provider: 16:40 Initial Comments This is a 45-year-old female who presented to the ER with complaints of nausea, vomiting x1 episode, fatigue. States her symptoms began Wednesday. She had possible exposure to somebody with Covid last week. Was informed yesterday. She is fully vaccinated. States that her symptoms feel similar to acid reflux. Describes as a burning achy sensation in her stomach that goes into her throat. Has taken her AM Omeprazole. Allergies and Home Medications Allergies Coded Allergies: azithromycin (Unverified Allergy, Unknown, 10/28/13) CHEST PAIN prednisone (Unverified Adverse Reaction, Unknown, RAISES BLOOD SUGAR, 10/28/13) Patient Home Medication List Home Medication List Reviewed: Yes Aripiprazole (Abilify) 10 Mg Tablet, 10 MG PO DAILY, (Reported) Entered as Reported by: KASSIDY GARCIA on 08/31/20919 Aspirin (Aspirin) 81 Mg Tab.chew, 81 MG PO DAILY, (Reported) Entered as Reported by: KASSIDY GARCIA on 08/31/20919 Citalopram Hydrobromide (Celexa) 40 Mg Tablet, 40 MG PO DAILY, (Reported) Entered as Reported by: KASSIDY GARCIA on 08/31/20919 Dapagliflozin Propanediol (Farxiga) 10 Mg Tablet, 10 MG PO DAILY, (Reported) Entered as Reported by: KASSIDY GARCIA on 08/31/20919 Dulaglutide (Trulicity) 1.5 Mg/0.5 Ml Pen.injctr, 1.5 MG SQ WEEK, (Reported) Entered as Reported by: BUCKY ROSE on 06/22/191822 Fenofibrate Nanocrystallized (Fenofibrate) 145 Mg Tablet, 145 MG PO DAILY, (R eported) Entered as Reported by: KASSIDY GARCIA on 08/31/20919 Glimepiride (Amaryl) 4 Mg Tablet, 4 MG PO BIDAC, (Reported) Entered as Reported by: KASSIDY GARCIA on 08/31/20919 Hydrochlorothiazide (Hydrochlorothiazide) 25 Mg Tablet, 25 MG PO DAILY, (Reported) Entered as Reported by: KASSIDY GARCIA on 08/31/20919 Insulin Degludec (Tresiba Flextouch U-200) 200 Unit/1 Ml Insuln.pen, 200 UNITS SQ DAILY, (Reported) Entered as Reported by: KASSIDY GARCIA on 08/31/20919 Lamotrigine (Lamictal) 200 Mg Tab, 200 MG PO DAILY, (Reported) Entered as Reported by: KASSIDY GARCIA on 08/31/20919 Lisinopril (Lisinopril) 20 Mg Tablet, 20 MG PO DAILY, (Reported) Entered as Reported by: KASSIDY GARCIA on 08/31/20919 Lorazepam (Ativan) 0.5 Mg Tablet, 0.5 MG PO DAILY PRN for ANXIETY, (Reported) Entered as Reported by: KASSIDY GARCIA on 08/31/20919 Metoprolol Succinate (Metoprolol Succinate) 25 Mg Tab.er.24h, 25 MG PO DAILY, (Reported) Entered as Reported by: KASSIDY GARCIA on 08/31/20919 Naproxen Sodium (Naproxen Sodium) 220 Mg Capsule, 2 TAB PO BID PRN for PAIN-MILD (1-4), (Reported) Entered as Reported by: KASSIDY GARCIA on 08/31/20919 Pantoprazole Sodium (Protonix) 40 Mg Tablet.dr, 40 MG PO DAILY, (Reported) Entered as Reported by: KASSIDY GARCIA on 08/31/20919 Pioglitazone HCl (Actos) 45 Mg Tablet, 45 MG PO DAILY, (Reported) Entered as Reported by: KASSIDY GARCAI on 08/31/20919 Tizanidine HCl (Tizanidine HCl) 4 Mg Tablet, 4 MG PO HS, (Reported) Entered as Reported by: KASSIDY GARCIA on 08/31/20919 Review of Systems Review of Systems Constitutional: see HPI EENTM: no symptoms reported Respiratory: no symptoms reported Cardiovascular: no symptoms reported Gastrointestinal: no symptoms reported Musculoskeletal: no symptoms reported Skin: no symptoms reported Psychiatric/Neurological: No Symptoms Reported Hematologic/Lymphatic: No Symptoms Reported Immunological/Allergic: no symptoms reported Past Lwjhctq-Ljdsel-Zpufav Hx Patient Social History Tobacco Use?: No Smoking Status: Never a Smoker Use of E-Cig and/or Vaping dev: No Substance use?: No Alcohol Use?: No Pt feels they are or have been: No Immunizations Up To Date Tetanus Booster (TDap): More than 5yrs PED Vaccines UTD: Yes First/Initial COVID19 Vaccinat: 06/19/2020 Second COVID19 Vaccination Pritesh: 07/18/2020 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: [employer] Seasonal Allergies Seasonal Allergies: Yes Past Medical History Surgeries: Yes Section Respiratory: No Asthma Cardiac: Yes High Cholesterol, Hypertension Neurological: No Headaches /Migraines Reproductive Disorders: No Sexually Transmitted Disease: No HIV/AIDS: No Genitourinary: No Gastrointestinal: No Abdominal Hernia, Irritable Bowel Musculoskeletal: No Arthritis, Chronic Back Pain Endocrine: Yes Diabetes, Insulin dep HEENT: No Cancer: No Psychosocial: Yes Anxiety, Bipolar, Depression Integumentary: No Blood Disorders: No Adverse Reaction/Blood Tranf: No Family Medical History Alcoholism 19 FATHER Arthritis 19 MOTHER Cataracts 19 MOTHER Diabetes mellitus 19 FATHER 19 MOTHER FH: stroke 19 FATHER Hypercholesterolemia 19 MOTHER Hypertension 19 MOTHER No Family History of: Cardiovascular disease Glaucoma Osteoporosis Prostate cancer No Pertinent Family Hx Physical Exam Vital Signs Vital Signs - First Documented 12/02/20 16:35 Temp 37.3 Pulse 94 Resp 18 B/P (MAP) 147/82 (103) Pulse Ox 97 O2 Delivery Room Air Capillary Refill : Less Than 3 Seconds Height, Weight, BMI Height: 5'2.00" Weight: 179lbs. 0oz. 81.035631gh; 40.00 BMI Method:Stated General Appearance: No Apparent Distress, WD/WN Eyes: Bilateral Eye Normal Inspection, Bilateral Eye PERRL, Bilateral Eye EOMI HEENT: PERRL/EOMI, Normal ENT Inspection, Pharynx Normal Neck: Normal Inspection Respiratory: Lungs Clear, Normal Breath Sounds, No Accessory Muscle Use Cardiovascular: Regular Rate, Rhythm, No Murmur, Normal Peripheral Pulses Gastrointestinal: Normal Bowel Sounds, Non Tender, Soft Back: Normal Inspection Extremity: Normal Inspection, Normal Range of Motion Neurologic/Psychiatric: Alert, Oriented x3, No Motor/Sensory Deficits, Normal Mood/Affect Skin: Normal Color, Warm/Dry Progress/Results/Core Measures Suspected Sepsis SIRS Temperature: Pulse: 94 Respiratory Rate: 18 Blood Pressure 147 /82 Mean: 103 Results/Orders Lab Results Laboratory Tests Test 12/02/20 16:50 Range/Units Influenza Type A (RT-PCR) Not Detected Not Detecte Influenza Type B (RT-PCR) Not Detected Not Detecte SARS-CoV-2 RNA (RT-PCR) Not Detected Not Detecte My Orders Orders - [facility] Covid 19 Inhouse Test (12/02/20 17:00) Influenza A And B By Pcr (12/02/20 17:00) Isolation Central Supply Req (12/02/20 17:00) Lidocaine 2% Viscous 15 Ml (Xylocaine Vi (12/02/20 17:15) Antacid Suspension (Mylanta Suspension (12/02/20 17:15) Medications Given in ED Vital Signs/I&O 12/02/20 12/02/20 16:35 17:58 Temp 37.3 Pulse 94 86 Resp 18 18 B/P (MAP) 147/82 (103) 134/60 Pulse Ox 97 97 O2 Delivery Room Air Room Air Capillary Refill : Less Than 3 Seconds Blood Pressure Mean: 103 Progress Note : Progress Note Given GI cocktail. States she feels much improved. COVID neg. Discharge POC reviewed and she is agreeable with plan. Departure Impression Primary Impression: GERD (gastroesophageal reflux disease) Disposition: 01 HOME, SELF-CARE Condition: Improved Departure-Patient Inst. Decision time for Depature: 17:48 Referrals: [facility] [place]) Primary Care Physician LOUISE STRATTON (Family) Primary Care Physician Patient Instructions: Acid Reflux and Gastroesophageal Reflux Disease in Adults Add. Discharge Instructions: Plan: 1. Continue to take your Pantoprazole at least 30 minutes before your heaviest meal. 2. Avoid spicy, greasy, acidic foods to see if this will help with your symptoms. 3. Follow up with your primary care provider if your symptoms persist. All discharge instructions reviewed with patient and/or family. Voiced understanding. GHASSAN ELLIS APRN Dec 02, 2020 17:28
[2020-12-02 17:58] VITALS: BP 134/60
== END 2020-12-02 17:58 | disposition home or self-care (01) ==
LOC: EDUNIT# 16:26 → ER 16:28
DX: K21.9 Gastro-esophageal reflux disease without esophagitis (principal); I10 Essential (primary) hypertension; J45.909 Unspecified asthma, uncomplicated; E11.9 Type 2 diabetes mellitus without complications; E78.00 Pure hypercholesterolemia, unspecified; F31.9 Bipolar disorder, unspecified; F41.9 Anxiety disorder, unspecified; Z20.822 Contact with and (suspected) exposure to COVID-19; Z79.899 Other long term (current) drug therapy; Z79.82 Long term (current) use of aspirin; Z79.4 Long term (current) use of insulin
CPT/HCPCS: 87636; 99283

== ENCOUNTER → 2020-12-20 | Outpatient (CLI) | payer MEDICARE, MEDICAID | LOC: LABNPT 06:16 | PROVIDERS: ATTEND Physician Assistant | DX: Z20.822 Contact with and (suspected) exposure to COVID-19 (principal) | CPT/HCPCS: 87635 ==

== ENCOUNTER 2021-11-12 05:42 | Outpatient (CLI) | payer MEDICARE, MEDICAID ==
[~2021-11-12] VITALS: Ht 157.5 cm; Wt 92.5 kg
[~2021-11-12 05:42] MED LIST changes: +CYCL10TA25 PO; -CYCL10TA9 PO; +TIZA-186 PO; -TIZA4TAB4 PO
[2021-11-14] MEDS ORDERED: NITR-65 PO (12:37)
[2021-11-14] MEDS ORDERED: ONDA4TAB11 PO (12:37)
== END 2021-11-13 10:44 | disposition home or self-care (01) ==
LOC: PREOP 05:42
PROVIDERS: ATTEND Surgery
DX: Z01.818 Encounter for other preprocedural examination (principal)

== ENCOUNTER 2021-11-14 09:59 | Emergency (ER) | payer MEDICARE, MEDICAID ==
[~2021-11-14] VITALS: Ht 157 cm; Wt 94.0 kg
--- NOTE | 2021-11-14 11:20 | Diagnostic Imaging Report ---
INDICATION: Chest pain Frontal chest obtained at 10:59 a.m. and compared to 08/08/2019. Heart and mediastinal silhouette are normal in appearance. The lungs are clear. There is no pneumothorax or pleural fluid. IMPRESSION: Negative chest. Dictated by: Dictated on workstation # [id number]
[2021-11-14 11:39] LABS: BILIRUBIN,URINE NEGATIVE (NEGATIVE); CLARITY,URINE CLEAR; COLOR,URINE YELLOW; GLUCOSE, URINE (UA) NEGATIVE (NEGATIVE); KETONES,URINE TRACE (NEGATIVE); LEUKOCYTE ESTERASE ,URINE NEGATIVE (NEGATIVE); NITRITE,URINE NEGATIVE (NEGATIVE); PROTEIN,URINE 1+ (NEGATIVE)
[2021-11-14 11:51] LABS: AMPHETAMINE SCREEN, URINE NEGATIVE (NEGATIVE); BARBITURATE SCREEN URINE NEGATIVE (NEGATIVE); BENZODIAZEPINES SCREEN URINE NEGATIVE (NEGATIVE); CANNABINOID SCREEN, URINE POSITIVE (NEGATIVE); COCAINE SCREEN URINE NEGATIVE (NEGATIVE); OPIATE SCREEN URINE NEGATIVE (NEGATIVE); OXYCODONE STAT NEGATIVE (NEGATIVE); PROPOXYPHENE STAT NEGATIVE (NEGATIVE); TRICYCLIC ANTIDEPRESSANTS SCRE NEGATIVE (NEGATIVE)
[2021-11-14 11:52] LABS: METHADONE STAT NEGATIVE (NEGATIVE)
[2021-11-14 11:53] LABS: BACTERIA,URINE LARGE /HPF
[2021-11-14 11:59] LABS: BASOPHILS # (AUTO) 0.1 10^3/uL (0.0-0.1); BASOPHILS % (AUTO) 1 % (0-10); EOSINOPHILS # (AUTO) 0.1 10^3/uL (0.0-0.3); EOSINOPHILS % (AUTO) 1 % (0-10); HEMATOCRIT 42 % (35-52); LYMPHOCYTES # (AUTO) 2.5 10^3/uL (1.0-4.0); LYMPHOCYTES % (AUTO) 25 % (12-44); MEAN CORPUSCULAR HEMOGLOBIN 28 pg (25-34); MEAN CORPUSCULAR HGB CONC 33 g/dL (32-36); MEAN CORPUSCULAR VOLUME 83 fL (80-99); MEAN PLATELET VOLUME 9.7 fL (9.0-12.2); MONOCYTES # (AUTO) 0.6 10^3/uL (0.0-1.0); MONOCYTES % (AUTO) 6 % (0-12); NEUTROPHILS # (AUTO) 6.9 10^3/uL (1.8-7.8); NEUTROPHILS % (AUTO) 67 % (42-75); PLATELET COUNT 325 10^3/uL (130-400); WHITE BLOOD COUNT 10.2 10^3/uL (4.3-11.0)
[2021-11-14 12:09] LABS: CHLORIDE 106 MMOL/L (98-107); POTASSIUM 3.5 MMOL/L (3.6-5.0); SODIUM 139 MMOL/L (135-145)
[2021-11-14 12:10] LABS: AMYLASE 13 U/L (25-125); CALCIUM 9.4 MG/DL (8.5-10.1)
[2021-11-14 12:12] LABS: GLUCOSE 172 MG/DL (70-105)
[2021-11-14 12:13] LABS: CARBON DIOXIDE 22 MMOL/L (21-32)
[2021-11-14 12:14] LABS: BILIRUBIN,TOTAL 0.5 MG/DL (0.1-1.0)
[2021-11-14 12:15] LABS: ALKALINE PHOSPHATASE 74 U/L (40-136); CREATININE SERUM 0.61 MG/DL (0.60-1.30); GFR ESTIMATED 110
[2021-11-14 12:16] LABS: BUN/CREATININE RATIO 13
[2021-11-14 12:18] LABS: ALANINE AMINOTRANSFERASE 18 U/L (0-55); MAGNESIUM 1.7 MG/DL (1.6-2.4)
[2021-11-14 12:19] LABS: LIPASE 16 U/L (8-78)
--- NOTE | 2021-11-14 12:19 | ED General ---
General Chief Complaint: General Problems/Pain Stated Complaint: CHEST PAIN/DIZZINESS/DIARRHEA/BLOOD SUGAR DROPPING Nursing Triage Note: PT REPORTS VARIOUS SYMPTOMS ALL STARTING ON 11/11 AFTER TAKING HER DOSES OF LONG ACTING INSULIN. PT STATING THAT HER BLOOD SUGAR IS "LOW". PT HAS IMPLANTED MONITOR AND REPORTS LOWEST READING AT 129. PT STATES BLOOD SUGAR WAS 144 THIS MORNING. PT ALSO C/O CHEST PAIN STARTING THIS MORNING, NAUSEA AFTER EATING AND ON EMPTY STOMACH, AND DIARRHEA WORSE THAN NORMAL. PT WAS SEEN BY [facility] ON 11/12 AND REPORTS SHE WAS TOLD THERE WAS NOTHING TO BE DONE BUT SHE SHOULD DRINK MORE WATER. Source of Information: Patient History of Present Illness Date Seen by Provider: Nov 14, 2021 Time Seen by Provider: 10:42 Allergies and Home Medications Allergies Coded Allergies: azithromycin (Unverified Allergy, Unknown, 10/28/13) CHEST PAIN prednisone (Unverified Adverse Reaction, Unknown, RAISES BLOOD SUGAR, ) Patient Home Medication List Aripiprazole (Abilify) 10 Mg Tablet, 10 MG PO DAILY, (Reported) Entered as Reported by: KASSIDY GARCIA on 08/31/20919 Aspirin (Aspirin) 81 Mg Tab.chew, 81 MG PO DAILY, (Reported) Entered as Reported by: KASSIDY GARCIA on 08/31/20919 Citalopram Hydrobromide (Celexa) 40 Mg Tablet, 40 MG PO DAILY, (Reported) Entered as Reported by: KASSIDY GARCIA on 08/31/20919 Dapagliflozin Propanediol (Farxiga) 10 Mg Tablet, 10 MG PO DAILY, (Reported) Entered as Reported by: KASSIDY GARCIA on 08/31/20919 Dulaglutide (Trulicity) 1.5 Mg/0.5 Ml Pen.injctr, 1.5 MG SQ WEEK, (Reported) Entered as Reported by: BUCKY ROSE on 06/22/191822 Fenofibrate Nanocrystallized (Fenofibrate) 145 Mg Tablet, 145 MG PO DAILY, (Reported) Entered as Reported by: KASSIDY GARCIA on 08/31/20919 Hydrochlorothiazide (Hydrochlorothiazide) 25 Mg Tablet, 25 MG PO DAILY, (Rep orted) Entered as Reported by: KASSIDY GARCIA on 08/31/20919 Insulin Degludec (Tresiba Flextouch U-200) 200 Unit/1 Ml Insuln.pen, 200 UNITS SQ DAILY, (Reported) Entered as Reported by: KASSIDY GARCIA on 08/31/20919 Lamotrigine (Lamictal) 200 Mg Tab, 200 MG PO DAILY, (Reported) Entered as Reported by: KASSIDY GARCIA on 08/31/20919 Lisinopril (Lisinopril) 20 Mg Tablet, 20 MG PO DAILY, (Reported) Entered as Reported by: KASSIDY GARCIA on 08/31/20919 Lorazepam (Ativan) 0.5 Mg Tablet, 0.5 MG PO DAILY PRN for ANXIETY, (Reported) Entered as Reported by: KASSIDY GARCIA on 08/31/20919 Metoprolol Succinate (Metoprolol Succinate) 25 Mg Tab.er.24h, 25 MG PO DAILY, (Reported) Entered as Reported by: KASSIDY GARCIA on 08/31/20919 Pantoprazole Sodium (Protonix) 40 Mg Tablet.dr, 40 MG PO DAILY, (Reported) Entered as Reported by: KASSIDY GARCIA on 08/31/20919 Tizanidine HCl (Tizanidine HCl) 4 Mg Tablet, 4 MG PO HS, (Reported) Entered as Reported by: KASSIDY GARCIA on 08/31/20919 Discontinued Medications Glimepiride (Amaryl) 4 Mg Tablet, 4 MG PO BIDAC, (Reported) Discontinued Reason: No Longer Taking Entered as Reported by: KASSIDY GARCIA on 08/31/20919 Naproxen Sodium (Naproxen Sodium) 220 Mg Capsule, 2 TAB PO BID PRN for PAIN-MILD (1-4), (Reported) Discontinued Reason: No Longer Taking Entered as Reported by: KASSIDY GARCIA on 08/31/20919 Pioglitazone HCl (Actos) 45 Mg Tablet, 45 MG PO DAILY, (Reported) Discontinued Reason: No Longer Taking Entered as Reported by: KASSIDY GARCIA on 08/31/20919 Past Tdczjxz-Ydayzg-Nvorjh Hx Patient Social History Tobacco Use?: No Substance use?: No Alcohol Use?: No Pt feels they are or have been: No Immunizations Up To Date Tetanus Booster (TDap): More than 5yrs PED Vaccines UTD: Yes First/Initial COVID19 Vaccinat: 06/19/2020 Second COVID19 Vaccination Pritesh: 07/18/2020 COVID19 Vaccine Club Car Attendant: RUBIA Seasonal Allergies Seasonal Allergies: Yes Past Medical History Surgery/Hospitalization HX: DIABETES Surgeries: Yes (CARPAL TUNNEL BILAT, BACK SURGERY, HERNIA REPAIR) Section, Orthopedic Respiratory: No Asthma Cardiac: Yes (HX OF DVT) Chronic Edema/Swelling, High Cholesterol, Hypertension Neurological: Yes (HX OF SEIZURE WITH PRE-ECLAMPSIA) Headaches /Migraines, Seizure Disorder Reproductive Disorders: No Sexually Transmitted Disease: No HIV/AIDS: No Genitourinary: Yes UTI-Chronic Gastrointestinal: No Abdominal Hernia, Gastroesophageal Reflux, Irritable Bowel Musculoskeletal: Yes (BULDING DISK) Arthritis, Chronic Back Pain Endocrine: Yes Diabetes, Insulin dep, Diabetes, Non-Insulin dep HEENT: No Cancer: No Psychosocial: Yes Anxiety, Bipolar, Depression Integumentary: No Blood Disorders: Yes (HX OF IRON DEFICIENCY) Adverse Reaction/Blood Tranf: No Family Medical History Alcoholism 19 FATHER Arthritis 19 MOTHER Cataracts 19 MOTHER Diabetes mellitus 19 FATHER 19 MOTHER FH: stroke 19 FATHER Hypercholesterolemia 19 MOTHER Hypertension 19 MOTHER No Family History of: Cardiovascular disease Glaucoma Osteoporosis Prostate cancer No Pertinent Family Hx Physical Exam Vital Signs Vital Signs - First Documented 11/14/21 10:29 Temp 36.4 Pulse 91 Resp 18 B/P (MAP) 142/81 (101) Pulse Ox 99 O2 Delivery Nasal Cannula Capillary Refill : Less Than 3 Seconds Height, Weight, BMI Height: 5'2.00" Weight: 179lbs. 0oz. 81.195736vl; 38.00 BMI Method:Stated Progress/Results/Core Measures Suspected Sepsis SIRS Temperature: Pulse: 91 Respiratory Rate: 18 Laboratory Tests 11/14/21 11:51: White Blood Count 10.2 Blood Pressure 142 /81 Mean: 101 Laboratory Tests 11/14/21 11:51: Creatinine 0.61, Platelet Count 325, Total Bilirubin 0.5 Results/Orders Lab Results Laboratory Tests Test 11/14/21 10:37 11/14/21 11:02 11/14/21 11:34 11/14/21 11:51 Range/Units Glucometer 163 H 70-110 MG/DL Influenza Type A (RT-PCR) Not Detected Not Detecte Influenza Type B (RT-PCR) Not Detected Not Detecte SARS-CoV-2 RNA (RT-PCR) Not Detected Not Detecte Urine Color YELLOW Urine Clarity CLEAR Urine pH 5.0 5-9 Urine Specific Collins >=1.030 1.016-1.022 Urine Protein 1+ H NEGATIVE Urine Glucose (UA) NEGATIVE NEGATIVE Urine Ketones TRACE H NEGATIVE Urine Nitrite NEGATIVE NEGATIVE Urine Bilirubin NEGATIVE NEGATIVE Urine Urobilinogen 0.2 < = 1.0 MG/DL Urine Leukocyte Esterase NEGATIVE NEGATIVE Urine RBC (Auto) NEGATIVE NEGATIVE Urine RBC NONE /HPF Urine WBC 2-5 /HPF Urine Squamous Epithelial Cells 2-5 /HPF Urine Crystals NONE /LPF Urine Bacteria LARGE H /HPF Urine Casts NONE /LPF Urine Mucus SMALL H /LPF Urine Culture Indicated YES Urine Opiates Screen NEGATIVE NEGATIVE Urine Oxycodone Screen NEGATIVE NEGATIVE Urine Methadone Screen NEGATIVE NEGATIVE Urine Propoxyphene Screen NEGATIVE NEGATIVE Urine Barbiturates Screen NEGATIVE NEGATIVE Ur Tricyclic Antidepressants Screen NEGATIVE NEGATIVE Urine Phencyclidine Screen NEGATIVE NEGATIVE Urine Amphetamines Screen NEGATIVE NEGATIVE Urine Methamphetamines Screen NEGATIVE NEGATIVE Urine Benzodiazepines Screen NEGATIVE NEGATIVE Urine Cocaine Screen NEGATIVE NEGATIVE Urine Cannabinoids Screen POSITIVE H NEGATIVE White Blood Count 10.2 4.3-11.0 10^3/uL Red Blood Count 5.09 3.80-5.11 10^6/uL Hemoglobin 14.0 11.5-16.0 g/dL Hematocrit 42 35-52 % Mean Corpuscular Volume 83 80-99 fL Mean Corpuscular Hemoglobin 28 25-34 pg Mean Corpuscular Hemoglobin Concent 33 32-36 g/dL Red Cell Distribution Width 13.9 10.0-14.5 % Platelet Count 325 130-400 10^3/uL Mean Platelet Volume 9.7 9.0-12.2 fL Immature Granulocyte % (Auto) 1 % Neutrophils (%) (Auto) 67 42-75 % Lymphocytes (%) (Auto) 25 12-44 % Monocytes (%) (Auto) 6 0-12 % Eosinophils (%) (Auto) 1 0-10 % Basophils (%) (Auto) 1 0-10 % Neutrophils # (Auto) 6.9 1.8-7.8 10^3/uL Lymphocytes # (Auto) 2.5 1.0-4.0 10^3/uL Monocytes # (Auto) 0.6 0.0-1.0 10^3/uL Eosinophils # (Auto) 0.1 0.0-0.3 10^3/uL Basophils # (Auto) 0.1 0.0-0.1 10^3/uL Immature Granulocyte # (Auto) 0.1 0.0-0.1 10^3/uL Sodium Level 139 135-145 MMOL/L Potassium Level 3.5 L 3.6-5.0 MMOL/L Chloride Level 106 98-107 MMOL/L Carbon Dioxide Level 22 21-32 MMOL/L Anion Gap 11 5-14 MMOL/L Blood Urea Nitrogen 8 7-18 MG/DL Creatinine 0.61 0.60-1.30 MG/DL Estimat Glomerular Filtration Rate 110 BUN/Creatinine Ratio 13 Glucose Level 172 H 70-105 MG/DL Calcium Level 9.4 8.5-10.1 MG/DL Corrected Calcium 9.4 8.5-10.1 MG/DL Magnesium Level 1.7 1.6-2.4 MG/DL Total Bilirubin 0.5 0.1-1.0 MG/DL Aspartate Amino Transf (AST/SGOT) 16 5-34 U/L Alanine Aminotransferase (ALT/SGPT) 18 0-55 U/L Alkaline Phosphatase 74 40-136 U/L Troponin I < 0.028 <0.028 NG/ML B-Type Natriuretic Peptide < 10.0 <100.0 PG/ML Total Protein 8.0 6.4-8.2 GM/DL Albumin 4.0 3.2-4.5 GM/DL Amylase Level 13 L 25-125 U/L Lipase 16 8-78 U/L Serum Test, Qualitative NEGATIVE NEGATIVE Serum Alcohol < 10 <10 MG/DL My Orders Orders - MAR MANE DO Ekg Tracing (11/14/21 10:26) Accucheck Stat ONCE (11/14/21 10:52) Ed Iv/Invasive Line Start (11/14/21 10:52) O2 (11/14/21 10:52) Monitor-Rhythm Ecg Trace Only (11/14/21 10:52) Alcohol (11/14/21 10:52) Amylase (11/14/21 10:52) Bnp Javad (11/14/21 10:52) Cbc With Automated Diff (11/14/21 10:52) Comprehensive Metabolic Panel (11/14/21 10:52) Drug Screen Stat (Urine) (11/14/21 10:52) Lipase (11/14/21 10:52) Magnesium (11/14/21 10:52) Ua Culture If Indicated (11/14/21 10:52) Troponin I Javad (11/14/21 10:52) Chest 1 View, Ap/Pa Only (11/14/21 10:52) Covid 19 Inhouse Test (11/14/21 10:52) Influenza A And B By Pcr (11/14/21 10:52) Isolation Central Supply Req (11/14/21 10:52) Hcg,Qualitative Serum (11/14/21 10:52) Urine Culture (11/14/21 11:34) Ceftriaxone 1 Gm Pre-Mix (Rocephin 1 Gm (11/14/21 12:20) Vital Signs/I&O 11/14/21 10:29 Temp 36.4 Pulse 91 Resp 18 B/P (MAP) 142/81 (101) Pulse Ox 99 O2 Delivery Nasal Cannula Capillary Refill : Less Than 3 Seconds Blood Pressure Mean: 101 Point of Care Testing Finger Stick Blood Glucose: 163 Departure Impression Primary Impression: Urinary tract infection Additional Impression: IDDM (insulin dependent diabetes mellitus) Disposition: HOME, SELF-CARE Condition: Stable Departure-Patient Inst. Decision time for Depature: 12:35 Referrals: [facility] (PCP) Primary Care Physician LOUISE STRATTON (Family) Primary Care Physician Patient Instructions: Urinary Tract Infection, Adult (DC), Diabetes and Infections Add. Discharge Instructions: TAKE ALL OF YOUR MEDICATIONS PRESCRIBED FOLLOW UP WITH [facility] NEXT WEEK FOR RECHECK All discharge instructions reviewed with patient and/or family. Voiced under standing. Scripts Ondansetron (Ondansetron Odt) 4 Mg Tab.rapdis 4 MG PO Q4H for Nausea/Vomiting, #10 TAB Prov: ANTONIETTAMAR K DO 11/14/21 Nitrofurantoin Monohyd/M-Cryst (Macrobid 100 mg Capsule) 100 Mg Capsule 1 TAB PO BID, #20 CAP Prov: ANTONIETTA,MAR K DO 11/14/21 ANTONIETTA,MAR K DO Nov 14, 2021 12:19
[2021-11-14] MEDS ORDERED: cefTRIAXone 1 GM PRE-MIX 50 ML IV STA (12:20)
[2021-11-14] MEDS ORDERED: ONDA4TAB11 PO (12:37)
[2021-11-14] MEDS ORDERED: NITR-65 PO (12:37)
[2021-11-14 12:55] VITALS: BP 146/87
== END 2021-11-14 12:57 | disposition home or self-care (01) ==
LOC: EDUNIT# 09:59 → ER 10:04
DX: N39.0 Urinary tract infection, site not specified (principal); E11.9 Type 2 diabetes mellitus without complications; Z88.1 Allergy status to other antibiotic agents; Z20.822 Contact with and (suspected) exposure to COVID-19; Z79.4 Long term (current) use of insulin
CPT/HCPCS: 71045; 80053; 80306; 81000; 82150; 82947; 83690; 83735; 83880; 84484; 84703; 85025; 87077; 87088; 87636; 93041; 99284; G0480; 36415; 80320

== ENCOUNTER 2021-11-25 09:35 | Day surgery (SDC) | payer MEDICARE, MEDICAID ==
[~2021-11-25] VITALS: Ht 157.5 cm; Wt 94.0 kg
[~2021-11-25 09:35] MED LIST changes: +NITR-65 PO
[2021-11-25] MEDS ORDERED: LACTATED RINGERS 1,000 ML IV STA (09:40)
[2021-11-25] MEDS ORDERED: HURRICAINE EXT TUBE (BENZOCAINE) XX PRN (09:45)
[2021-11-25 10:21] VITALS: BP 115/67
--- NOTE | 2021-11-25 11:40 | Progress Note-Pre Operative ---
Pre-Operative Progress Note Date of Available H&P: Nov 03, 2021 Date H&P Reviewed: Nov 25, 2021 Time H&P Reviewed: 11:38 History & Physical: H&P Reviewed, Patient Examed, No changes noted Pre-Operative Diagnosis: GERD and screening colonoscopy SONJA HENDERSON DO Nov 25, 2021 11:40
[2021-11-25] MEDS ORDERED: PROPOFOL INJECTION 50 ML IV ONE (12:54)
[2021-11-25] MEDS ORDERED: MIDAZOLAM 2 MG/2 ML (VERSED) VIAL ONE (12:54)
--- NOTE | 2021-11-25 13:32 | Progress Note-Post Operative ---
Post-Operative Progess Note Surgeon (s)/Mail Carrier Technician (s) Surgeon SONJA HENDERSON DO Mail Carrier Technician: na Pre-Operative Diagnosis GERD and screening colonoscopy Post-Operative Diagnosis antral ulcerations, cecal polyp Procedure & Operative Findings Date of Procedure 11/25/21 Procedure Performed/Findings egd c biopsies, colonosocpy c cold biopsy polypectomy Anesthesia Type per sales and marketing engineer Estimated Blood Loss Estimated blood loss (mL): na Specimens/Packing Specimens Removed antrum, ge, cecal polyp SONJA HENDERSON DO Nov 25, 2021 13:32
--- NOTE | 2021-11-25 13:33 | Discharge Inst-Simple/Standard ---
Discharge Inst-Standard Patient Instructions/Follow Up Plan of Care/Instructions/FU: 2 weeks mario alberto Activity as Tolerated: Yes Discharge Diet: Regular Diet SONJA HENDERSON DO Nov 25, 2021 13:33
[2021-11-25] MEDS ORDERED: SUCR1TAB36 PO (13:34)
[2021-11-25 13:36] VITALS: BP 125/60
[2021-11-25 13:40] VITALS: BP 115/51
[2021-11-25 13:57] VITALS: BP 115/51
--- NOTE | 2021-11-25 14:38 | Anesthesia-General Post-Op ---
MAC Patient Condition Mental Status/LOC: Same as Preop Cardiovascular: Satisfactory Nausea/Vomiting: Absent Respiratory: Satisfactory Pain: Controlled Complications: Absent Post Op Complications Complications None Follow Up Care/Instructions Patient Instructions None needed. Anesthesiology Discharge Order Discharge Order Patient is doing well, no complaints, stable vital signs, no apparent adverse anesthesia problems. No complications reported per nursing. DERRELL DAVID CRNA Nov 25, 2021 14:38
--- NOTE | 2021-11-25 21:27 | OPERATIVE REPORT ---
DATE OF SERVICE: 11/25/2021 PREOPERATIVE DIAGNOSES: Gastroesophageal reflux disease and screening colonoscopy. POSTOPERATIVE DIAGNOSES: Antral ulcerations, cecal polyp. PROCEDURE: EGD with biopsies, colonoscopy with cold biopsy polypectomy. SURGEON: Sonja Wilhelm DO ANESTHESIA: Per MEDICAL DERMATOLOGIST. ESTIMATED BLOOD LOSS: None. COMPLICATIONS: None. SPECIMENS: Antrum, GE junction and cecal polyp. INDICATIONS: The patient is a 46-year-old female needing a screening colonoscopy and EGD for GERD symptoms. She understands risks and benefits of procedure and wishes to proceed. Consent was signed in the chart. DESCRIPTION OF PROCEDURE: The patient was taken to the endoscopy suite, placed in left lateral recumbent position. Timeout was performed. Scope was inserted in mouth, down the esophagus, stomach and into the duodenum without difficulty. No polyps, masses or ulcerations within the duodenum. Scope was slowly retracted back to stomach where it was further insufflated. Changes in the antrum appeared to be some small ulcerations, which are healing. Biopsy of the antrum was obtained. Scope was retroflexed noting no other pathology. Scope was returned to its normal position, slowly withdrawn to distal esophagus. Biopsy of GE junction was obtained. No polyps, masses or ulcerations. Scope was slowly retracted back to completely remove noting no other pathology. Digital rectal exam, no palpable polyps, masses or ulcerations. Scope was inserted in the rectum and advanced all the way to cecum with minimal difficulty. Prep was adequate. Scope was slowly retracted back in the cecum just opposite of the ileocecal valve. A small polyp was present, which cold polypectomy was performed. No polyps, masses or ulcerations noted within the remainder of the cecum, ascending, transverse, descending, sigmoid colon. Once in the rectum, scope was retroflexed noting no other pathology. Scope was returned to its normal position, slowly withdrawn until completely removed. The patient tolerated the procedure well without any complications. She was taken to recovery room in stable condition. RECOMMENDATIONS: The patient's repeat colonoscopy in 5 years. Any issues before that be seen at that time. The patient will follow up in 2 weeks to discuss pathology results. We will also add Carafate 1 gram four times a day. Job ID: [id number] DocumentID: [id number] Dictated Date: 11/25/2021 13:36:17 General Assembler Date: 11/25/2021 21:26:41 Dictated By: SONJA WILHELM DO
== END 2021-11-25 14:14 | disposition home or self-care (01) ==
LOC: ENDO 09:35
PROVIDERS: ATTEND Surgery
DX: Z12.11 Encounter for screening for malignant neoplasm of colon (principal); D12.0 Benign neoplasm of cecum; K21.00 Gastro-esophageal reflux disease with esophagitis, without bleeding; K31.89 Other diseases of stomach and duodenum; Z79.899 Other long term (current) drug therapy
CPT/HCPCS: 84703

== ENCOUNTER 2021-11-30 10:26 | Emergency (ER) | payer MEDICARE, MEDICAID ==
[~2021-11-30 10:26] MED LIST changes: +SUCR1TAB36 PO
[2021-11-30] MEDS ORDERED: DICYCLOMINE 10 MG/ML (BENTYL) 2 ML AMP IM STA (10:43)
[2021-11-30] MEDS ORDERED: ONDANSETRON 4 MG/2 ML (SDV) Z0FRAN IVP ONE (10:45)
[2021-11-30 10:49] LABS: BASOPHILS # (AUTO) 0.1 10^3/uL (0.0-0.1); BASOPHILS % (AUTO) 1 % (0-10); EOSINOPHILS # (AUTO) 0.1 10^3/uL (0.0-0.3); EOSINOPHILS % (AUTO) 1 % (0-10); HEMATOCRIT 39 % (35-52); HEMOGLOBIN 13.3 g/dL (11.5-16.0); LYMPHOCYTES # (AUTO) 2.1 10^3/uL (1.0-4.0); LYMPHOCYTES % (AUTO) 23 % (12-44); MEAN CORPUSCULAR HEMOGLOBIN 27 pg (25-34); MEAN CORPUSCULAR HGB CONC 34 g/dL (32-36); MEAN CORPUSCULAR VOLUME 81 fL (80-99); MEAN PLATELET VOLUME 10.1 fL (9.0-12.2); MONOCYTES # (AUTO) 0.5 10^3/uL (0.0-1.0); MONOCYTES % (AUTO) 6 % (0-12); NEUTROPHILS # (AUTO) 6.4 10^3/uL (1.8-7.8); NEUTROPHILS % (AUTO) 70 % (42-75); PLATELET COUNT 256 10^3/uL (130-400); WHITE BLOOD COUNT 9.2 10^3/uL (4.3-11.0)
[2021-11-30 10:53] LABS: ALBUMIN 4.1 GM/DL (3.2-4.5)
[2021-11-30 10:54] LABS: POTASSIUM 3.8 MMOL/L (3.6-5.0)
[2021-11-30 10:55] LABS: CALCIUM 9.6 MG/DL (8.5-10.1)
[2021-11-30 10:56] LABS: TOTAL PROTEIN 8.1 GM/DL (6.4-8.2)
[2021-11-30 10:58] LABS: BILIRUBIN,TOTAL 0.4 MG/DL (0.1-1.0)
[2021-11-30 10:59] LABS: CREATININE SERUM 0.7 MG/DL (0.60-1.30)
--- NOTE | 2021-11-30 11:22 | ED Abdominal Pain ---
General Chief Complaint: Abdominal/GI Problems Stated Complaint: ABD PAIN Nursing Triage Note: PT TO [facility] BY EMS WITH C/O ABD PAIN THAT IS SHARP AND VOMIT X1 BEFORE ARRIVAL. PT STATES SHE IS HAVING DIARHIA AND HAD A COLONOSCOPY ON 11/25 Source of Information: Patient Exam Limitations: No Limitations History of Present Illness Date Seen by Provider: Nov 30, 2021 Time Seen by Provider: 10:29 Initial Comments Patient is a 46-year-old female who presents to the emergency department today with a chief complaint of epigastric and right upper quadrant abdominal pain she states that she had a colonoscopy last Wednesday. She been doing fine until Wednesday and Wednesday when she started having discomfort. She states her diarrhea started yesterday. She has had 3 episodes over the last couple of days. Nonblack nonbloody. No urinary complaints. She is slightly nauseous and vomited once prior to arrival. She has taken Tylenol and ibuprofen without r elief. She states that Dr. Henderson did her colonoscopy and removed a polyp. She has not been taking her aspirin secondary to this. She denies any recent antibiotic use. No travel/camping. She has city water. No fevers or chills. No upper respiratory complaints. She still has her gallbladder. Nothing makes her discomfort any better or any worse including food. She has tried [id number] Imodium/generic without relief of diarrheal symptoms. All other review of systems reviewed and negative except as stated Timing/Duration: 1-2 Days Severity/Quality: Moderate, Cramping Location: RUQ, Epigastric Radiation: No Radiation Activities at Onset: None Associated Symptoms: Other (diarrhea) Allergies and Home Medications Allergies Coded Allergies: azithromycin (Unverified Allergy, Unknown, 10/28/13) CHEST PAIN prednisone (Unverified Adverse Reaction, Unknown, RAISES BLOOD SUGAR, 10/28/13) Patient Home Medication List Home Medication List Reviewed: Yes Aripiprazole (Abilify) 10 Mg Tablet, 10 MG PO DAILY, (Reported) Entered as Reported by: KASSIDY GARCIA on 08/31/20919 Aspirin (Aspirin) 81 Mg Tab.chew, 81 MG PO DAILY, (Reported) Entered as Reported by: KASSIDY GARCIA on 08/31/20919 Citalopram Hydrobromide (Celexa) 40 Mg Tablet, 40 MG PO DAILY, (Reported) Entered as Reported by: KASSIDY GARCIA on 08/31/20919 Dapagliflozin Propanediol (Farxiga) 10 Mg Tablet, 10 MG PO DAILY, (Reported) Entered as Reported by: KASSIDY GARCIA on 08/31/20919 Dulaglutide (Trulicity) 1.5 Mg/0.5 Ml Pen.injctr, 1.5 MG SQ WEEK, (Reported) Entered as Reported by: BUCKY ROSE on 06/22/191822 Fenofibrate Nanocrystallized (Fenofibrate) 145 Mg Tablet, 145 MG PO DAILY, (Reported) Entered as Reported by: KASSIDY GARCIA on 08/31/20919 Hydrochlorothiazide (Hydrochlorothiazide) 25 Mg Tablet, 25 MG PO DAILY, (Reported) Entered as Reported by: KASSIDY GARCIA on 08/31/20919 Insulin Degludec (Tresiba Flextouch U-200) 200 Unit/1 Ml Insuln.pen, 200 UNITS SQ DAILY, (Reported) Entered as Reported by: KASSIDY GARCIA on 08/31/20919 Lamotrigine (Lamictal) 200 Mg Tab, 200 MG PO DAILY, (Reported) Entered as Reported by: KASSIDY GARCIA on 08/31/20919 Lisinopril (Lisinopril) 20 Mg Tablet, 20 MG PO DAILY, (Reported) Entered as Reported by: KASSIDY GARCIA on 08/31/20919 Lorazepam (Ativan) 0.5 Mg Tablet, 0.5 MG PO DAILY PRN for ANXIETY, (Reported) Entered as Reported by: KASSIDY GARCIA on 08/31/20919 Metoprolol Succinate (Metoprolol Succinate) 25 Mg Tab.er.24h, 25 MG PO DAILY, (Reported) Entered as Reported by: KASSIDY GARCIA on 08/31/20919 Nitrofurantoin Monohyd/M-Cryst (Macrobid 100 mg Capsule) 100 Mg Capsule, 1 TAB PO BID Prescribed by: MAR MANE on 11/14/21 1237 Ondansetron (Ondansetron Odt) 4 Mg Tab.rapdis, 4 MG PO Q4H Prescribed by: MAR MANE on 11/14/21 1237 Pantoprazole Sodium (Protonix) 40 Mg Tablet.dr, 40 MG PO DAILY, (Reported) Entered as Reported by: KASSIDY GARCIA on 08/31/20919 Sucralfate (Carafate) 1 Gram Tablet, 1 GM PO QID Prescribed by: SONJA HENDERSON on 11/25/21 1334 Tizanidine HCl (Tizanidine HCl) 4 Mg Tablet, 4 MG PO HS, (Reported) Entered as Reported by: KASSIDY GARCIA on 08/31/20919 Review of Systems Review of Systems Constitutional: see HPI EENTM: No Symptoms Reported Respiratory: No Symptoms Reported Cardiovascular: No Symptoms Reported Gastrointestinal: Abdominal Pain, Diarrhea, Nausea, Vomiting Genitourinary: No Symptoms Reported Musculoskeletal: no symptoms reported Skin: no symptoms reported All Other Systems Reviewed Negative Unless Noted: Yes Past Sxfiquv-Uwhkhu-Jqicwv Hx Patient Social History Tobacco Use?: No Use of E-Cig and/or Vaping dev: No Substance use?: No Alcohol Use?: Yes Alcohol Frequency: Rarely Pt feels they are or have been: No Immunizations Up To Date Tetanus Booster (TDap): More than 5yrs PED Vaccines UTD: Yes Influenza Vaccine Up-to-Date: No; Not Current First/Initial COVID19 Vaccinat: 06/19/2020 Second COVID19 Vaccination Pritesh: 07/18/2020 Third COVID19 Vaccination Date: 03/17/2021 COVID19 Vaccine 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: [employer] Seasonal Allergies Seasonal Allergies: Yes Past Medical History Surgery/Hospitalization HX: DIABETES, HLD, DEPRESSION, ANXIETY C-SECTIONS, HERNIA, BACK SURGERY Surgeries: Yes (CARPAL TUNNEL BILAT, BACK SURGERY, HERNIA REPAIR) Section, Orthopedic Respiratory: No Asthma Cardiac: Yes (HX OF DVT) Chronic Edema/Swelling, High Cholesterol, Hypertension Neurological: Yes (HX OF SEIZURE WITH PRE-ECLAMPSIA) Headaches /Migraines, Seizure Disorder Reproductive Disorders: No Sexually Transmitted Disease: No HIV/AIDS: No Genitourinary: Yes UTI-Chronic Gastrointestinal: No Abdominal Hernia, Gastroesophageal Reflux, Irritable Bowel Musculoskeletal: Yes (BULDING DISK) Arthritis, Chronic Back Pain Endocrine: Yes Diabetes, Insulin dep, Diabetes, Non-Insulin dep HEENT: No Cancer: No Psychosocial: Yes Anxiety, Bipolar, Depression Integumentary: No Blood Disorders: Yes (HX OF IRON DEFICIENCY) Adverse Reaction/Blood Tranf: No Family Medical History Alcoholism 19 FATHER Arthritis 19 MOTHER Cataracts 19 MOTHER Diabetes mellitus 19 FATHER 19 MOTHER FH: stroke 19 FATHER Hypercholesterolemia 19 MOTHER Hypertension 19 MOTHER No Family History of: Cardiovascular disease Glaucoma Osteoporosis Prostate cancer No Pertinent Family Hx Physical Exam Vital Signs Vital Signs - First Documented 11/30/21 10:29 Temp 36.0 Pulse 89 Resp 18 B/P (MAP) 141/74 (96) Capillary Refill : Height/Weight/BMI Height: 5'2.00" Weight: 179lbs. 0oz. 81.057231aj; 37.89 BMI Method:Stated General Appearance: WD/WN, no apparent distress HEENT: PERRL/EOMI, other (moist mucous membranes) Neck: normal inspection Respiratory: lungs clear, normal breath sounds, no respiratory distress, no accessory muscle use Cardiovascular: regular rate, rhythm Gastrointestinal: soft, tenderness (mild RUQ and epigastric tenderness; normal BS; non distended. Neg Waller's sign. no involuntary guarding) Rectal: deferred Extremities: normal range of motion, non-tender, normal inspection, no pedal edema Neurologic/Psychiatric: alert, normal mood/affect, oriented x 3 Skin: normal color, warm/dry Progress/Results/Core Measures Results/Orders Lab Results Laboratory Tests Test 11/30/21 10:30 11/30/21 10:33 Range/Units White Blood Count 9.2 4.3-11.0 10^3/uL Red Blood Count 4.87 3.80-5.11 10^6/uL Hemoglobin 13.3 11.5-16.0 g/dL Hematocrit 39 35-52 % Mean Corpuscular Volume 81 80-99 fL Mean Corpuscular Hemoglobin 27 25-34 pg Mean Corpuscular Hemoglobin Concent 34 32-36 g/dL Red Cell Distribution Width 13.3 10.0-14.5 % Platelet Count 256 130-400 10^3/uL Mean Platelet Volume 10.1 9.0-12.2 fL Immature Granulocyte % (Auto) 0 % Neutrophils (%) (Auto) 70 42-75 % Lymphocytes (%) (Auto) 23 12-44 % Monocytes (%) (Auto) 6 0-12 % Eosinophils (%) (Auto) 1 0-10 % Basophils (%) (Auto) 1 0-10 % Neutrophils # (Auto) 6.4 1.8-7.8 10^3/uL Lymphocytes # (Auto) 2.1 1.0-4.0 10^3/uL Monocytes # (Auto) 0.5 0.0-1.0 10^3/uL Eosinophils # (Auto) 0.1 0.0-0.3 10^3/uL Basophils # (Auto) 0.1 0.0-0.1 10^3/uL Immature Granulocyte # (Auto) 0.0 0.0-0.1 10^3/uL Sodium Level 140 135-145 MMOL/L Potassium Level 3.8 3.6-5.0 MMOL/L Chloride Level 106 98-107 MMOL/L Carbon Dioxide Level 16 L 21-32 MMOL/L Anion Gap 18 H 5-14 MMOL/L Blood Urea Nitrogen 9 7-18 MG/DL Creatinine 0.70 0.60-1.30 MG/DL Estimat Glomerular Filtration Rate 107 BUN/Creatinine Ratio 13 Glucose Level 316 H 70-105 MG/DL Calcium Level 9.6 8.5-10.1 MG/DL Corrected Calcium 9.5 8.5-10.1 MG/DL Total Bilirubin 0.4 0.1-1.0 MG/DL Aspartate Amino Transf (AST/SGOT) 11 5-34 U/L Alanine Aminotransferase (ALT/SGPT) 14 0-55 U/L Alkaline Phosphatase 91 40-136 U/L Total Protein 8.1 6.4-8.2 GM/DL Albumin 4.1 3.2-4.5 GM/DL Lipase 37 8-78 U/L Glucometer 300 H 70-110 MG/DL My Orders Orders - ECHO HARMON MD Ed Iv/Invasive Line Start (11/30/21 10:43) Cbc With Automated Diff (11/30/21 10:43) Comprehensive Metabolic Panel (11/30/21 10:43) Lipase (11/30/21 10:43) Dicyclomine Injection (Bentyl Injection) (11/30/21 10:43) Ondansetron Injection (Zofran Injectio (11/30/21 10:45) Medications Given in ED Current Medications Medications Dose Ordered Sig/Ernesto Route Start Time Stop Time Status Last Admin Dose Admin Ondansetron HCl 4 mg ONCE ONCE IVP 11/30/21 10:45 11/30/21 10:46 DC 11/30/21 11:01 4 MG Vital Signs/I&O 11/30/21 10:29 Temp 36.0 Pulse 89 Resp 18 B/P (MAP) 141/74 (96) Blood Pressure Mean: 96 FSBG Bedside Testing Finger Stick Blood Glucose: 300 Blood Glucose Action Taken: NURSE AND DOC NOTIFIED Progress Progress Note : Time: 11:30 Progress Note Patient is feeling better after the Bentyl. She is comfortable with the discharge plan, home with dicyclomine. She has Zofran at home. I have recommended she follow-up with [facility] for further evaluation of possible gallbladder disease. Return precautions have been provided. All questions are sought and answered. Departure Impression Primary Impression: Abdominal pain Qualified Codes: R10.13 - Epigastric pain Additional Impression: Enteritis Disposition: HOME, SELF-CARE Condition: Stable Departure-Patient Inst. Decision time for Depature: 11:24 Referrals: [facility] (PCP/Family) Primary Care Physician Patient Instructions: Diarrhea, Adult ED, Gallbladder Diet Add. Discharge Instructions: Drink plenty of fluids to stay well hydrated. Take the bentyl (dicyclomine) 20mg up to 4 times a day, (30 min before food/meals). This will help cramping and diarrhea. Increase your fiber intake. If you develop a fever or worsening abdominal pain with more vomiting, please come back to the Emergency Department for re-evaluation. Follow up with your primary care doctor for further evaluation and possible Gallbladder ultrasound. Scripts Dicyclomine HCl (Dicyclomine HCl) 20 Mg Tablet 20 MG PO Q6H PRN for abdominal cramping, #60 TAB Prov: ECHO HARMON MD 11/30/21 Copy Copies To 1: LUCIANO WILLARD KATHRYN M MD Nov 30, 2021 11:22
[2021-11-30] MEDS ORDERED: DICY20TA PO (11:27)
[2021-11-30 11:37] VITALS: BP 117/50
== END 2021-11-30 11:38 | disposition home or self-care (01) ==
LOC: EDUNIT# 10:26 → ER 10:27
DX: K52.9 Noninfective gastroenteritis and colitis, unspecified (principal)
CPT/HCPCS: 36415; 80053; 82947; 83690; 85025; 96372; 96374

== ENCOUNTER → 2021-12-12 | Outpatient (CLI) | payer MEDICARE, MEDICAID ==
[~2021-12-12] MED LIST changes: +DICY20TA PO
--- NOTE | 2021-12-12 11:55 | Diagnostic Imaging Report ---
PROCEDURE: US Gallbladder. TECHNIQUE: Multiple real-time grayscale images were obtained over the right upper quadrant in various projections. INDICATION: Epigastric pain. The liver is enlarged at 21 cm. The portal vein is patent and shows normal direction of flow. Liver shows some increased echogenicity consistent with hepatic steatosis. No mass is seen. Gallbladder is without stones or sludge. There is no wall thickening or biliary ductal dilatation. The pancreas is unremarkable. Aorta is normal in caliber proximally. Mid and distal aorta were obscured by bowel gas. IVC is patent. Right kidney is without calculi or hydronephrosis. There is no ascites. IMPRESSION: 1. Hepatomegaly and hepatic steatosis. 2. No evidence of cholelithiasis or acute cholecystitis. Dictated by: Dictated on workstation # [id number]
== END ==
LOC: RAD 08:09
PROVIDERS: ATTEND Surgery
DX: K76.0 Fatty (change of) liver, not elsewhere classified (principal)
CPT/HCPCS: 76705

== ENCOUNTER 2021-12-18 12:58 | Emergency (ER) | payer MEDICARE, MEDICAID ==
[~2021-12-18] VITALS: Ht 154 cm; Wt 95.3 kg
[2021-12-18 13:39] LABS: BASOPHILS # (AUTO) 0.1 10^3/uL (0.0-0.1); BASOPHILS % (AUTO) 1 % (0-10); EOSINOPHILS # (AUTO) 0.1 10^3/uL (0.0-0.3); EOSINOPHILS % (AUTO) 1 % (0-10); HEMATOCRIT 43 % (35-52); HEMOGLOBIN 14.2 g/dL (11.5-16.0); LYMPHOCYTES # (AUTO) 2.9 10^3/uL (1.0-4.0); LYMPHOCYTES % (AUTO) 29 % (12-44); MEAN CORPUSCULAR HEMOGLOBIN 27 pg (25-34); MEAN CORPUSCULAR HGB CONC 33 g/dL (32-36); MEAN CORPUSCULAR VOLUME 83 fL (80-99); MEAN PLATELET VOLUME 10.2 fL (9.0-12.2); MONOCYTES # (AUTO) 0.6 10^3/uL (0.0-1.0); MONOCYTES % (AUTO) 6 % (0-12); NEUTROPHILS # (AUTO) 6.5 10^3/uL (1.8-7.8); NEUTROPHILS % (AUTO) 64 % (42-75); PLATELET COUNT 328 10^3/uL (130-400); WHITE BLOOD COUNT 10.2 10^3/uL (4.3-11.0)
[2021-12-18 13:43] LABS: ALBUMIN 4.2 GM/DL (3.2-4.5); POTASSIUM 3.7 MMOL/L (3.6-5.0)
[2021-12-18 13:44] LABS: CALCIUM 10.1 MG/DL (8.5-10.1); PROTHROMBIN TIME PATIENT 13.4 SEC (12.2-14.7)
[2021-12-18] MEDS ORDERED: LIDOCAINE 2% VISCOUS 15 ML UDC PO ONE (13:45)
[2021-12-18] MEDS ORDERED: SUCRALFATE 1 GM (CARAFATE) TAB PO ONE (13:45)
[2021-12-18] MEDS ORDERED: ANTACID SUSP 30 ML UDC (MYLANTA) PO ONE (13:45)
[2021-12-18 13:46] LABS: TOTAL PROTEIN 8.3 GM/DL (6.4-8.2)
[2021-12-18 13:47] LABS: BILIRUBIN,TOTAL 0.4 MG/DL (0.1-1.0)
[2021-12-18 13:49] LABS: CREATININE SERUM 0.66 MG/DL (0.60-1.30)
--- NOTE | 2021-12-18 13:49 | ED General ---
General Chief Complaint: Chest Pain Stated Complaint: CHEST PAIN Nursing Triage Note: PT AMB TO RM 7 WITH COMPLAINT OF CP AND "ACID ISSUES". PT WAS SENT BY [facility] FOR FURTHER WORKER FOR ABNORMAL EKG IN OFFICE. Source of Information: Patient Exam Limitations: No Limitations (DARIN MADDEN A MED STUDENT) History of Present Illness Date Seen by Provider: Dec 18, 2021 Time Seen by Provider: 13:[address] Sloan is a 46 yo female who presents via personal vehicle from [facility] d/t provider concern for STEMI. Pt has hx of insulin dependent T2DM, HTN, depression and anxiety. Pt reports she was at the clinic today because of epigastric pain and GERD sxs that have been ongoing for several months. An EKG was done and Navjot Alfaro, [facility] provider, was concerned for STEMI in leads I, II and III, so he sent her here. Pt reports she is not having chest pain, but more sternal and epigastric pain. This has been ongoing for "months" according to the pt and she states it may or may not be worse today. She stated at one point the pain is no worse than it has been, but at another point in the conversation she states it is worse today and thats why she went to the clinic. She recently had EGD, col onoscopy, RUQ ultrasound for work up of her sxs. She is scheduled for a HIDA scan within the next week. She reports she is only taking carafate for her GERD sxs. She was previously taking protonix, but never refilled the prescription. She reports nausea and loss of appetite with the epigastric pain. She reports a regular BM regimen, with the last one being today. She denies constipation or diarrhea. Pt reports she has been having some dizziness and felt as if she was going to pass out yesterday. When asked how much water she drinks in one day she states she drinks "a lot of water". When asked for further clarify the amount of water, she states three 8oz cups of water in addition to tea throughout the day. She states every time she drinks water she has to urinate. She denies fever, chills, dysuria or frequency. Timing/Duration: Other (Several months) Severity: Moderate Modifying Factors: improves with Medication (carafate) Associated Systoms: No Cough, No Fever/Chills; Headaches, Loss of Appetite, Nausea/Vomiting; No Shortness of Air (DARIN MADDEN MED STUDENT) Allergies and Home Medications Allergies Coded Allergies: azithromycin (Unverified Allergy, Unknown, 10/28/13) CHEST PAIN prednisone (Unverified Adverse Reaction, Unknown, RAISES BLOOD SUGAR, 10/28/13) Patient Home Medication List Home Medication List Reviewed: Yes (ECHO BARGER MD) Aripiprazole (Abilify) 10 Mg Tablet, 10 MG PO DAILY, (Reported) Entered as Reported by: KASSIDY GARCIA on 08/31/20919 Aspirin (Aspirin) 81 Mg Tab.chew, 81 MG PO DAILY, (Reported) Entered as Reported by: KASSIDY GARCIA on 08/31/20919 Citalopram Hydrobromide (Celexa) 40 Mg Tablet, 40 MG PO DAILY, (Reported) Entered as Reported by: KASSIDY GARCIA on 08/31/20919 Dapagliflozin Propanediol (Farxiga) 10 Mg Tablet, 10 MG PO DAILY, (Reported) Entered as Reported by: KASSIDY GARCIA on 08/31/20919 Dicyclomine HCl (Dicyclomine HCl) 20 Mg Tablet, 20 MG PO Q6H PRN for abdominal cramping Prescribed by: ECHO BARGER on 11/30/21 1127 Dulaglutide (Trulicity) 1.5 Mg/0.5 Ml Pen.injctr, 1.5 MG SQ WEEK, (Reported) Entered as Reported by: BUCKY ROSE on 06/22/19 1823 Fenofibrate Nanocrystallized (Fenofibrate) 145 Mg Tablet, 145 MG PO DAILY, (Reported) Entered as Reported by: KASSIDY GARCIA on 08/31/20919 Hydrochlorothiazide (Hydrochlorothiazide) 25 Mg Tablet, 25 MG PO DAILY, (Reported) Entered as Reported by: KASSIDY GARCIA on 08/31/20919 Insulin Degludec (Tresiba Flextouch U-200) 200 Unit/1 Ml Insuln.pen, 200 UNITS SQ DAILY, (Reported) Entered as Reported by: KASSIDY GARCIA on 08/31/20919 Lamotrigine (Lamictal) 200 Mg Tab, 200 MG PO DAILY, (Reported) Entered as Reported by: KASSIDY GARCIA on 08/31/20919 Lisinopril (Lisinopril) 20 Mg Tablet, 20 MG PO DAILY, (Reported) Entered as Reported by: KASSIDY GARCIA on 08/31/20919 Lorazepam (Ativan) 0.5 Mg Tablet, 0.5 MG PO DAILY PRN for ANXIETY, (Reported) Entered as Reported by: KASSIDY GARCIA on 08/31/20919 Metoprolol Succinate (Metoprolol Succinate) 25 Mg Tab.er.24h, 25 MG PO DAILY, (Reported) Entered as Reported by: KASSIDY GARCIA on 08/31/20919 Nitrofurantoin Monohyd/M-Cryst (Macrobid 100 mg Capsule) 100 Mg Capsule, 1 TAB PO BID Prescribed by: MAR MANE on 11/14/21 1237 Ondansetron (Ondansetron Odt) 4 Mg Tab.rapdis, 4 MG PO Q4H Prescribed by: MAR MANE on 11/14/21 1237 Pantoprazole Sodium (Protonix) 40 Mg Tablet.dr, 40 MG PO DAILY, (Reported) Entered as Reported by: KASSIDY GARCIA on 08/31/20919 Sucralfate (Carafate) 1 Gram Tablet, 1 GM PO QID Prescribed by: SONJA HENDERSON on 11/25/21 1334 Tizanidine HCl (Tizanidine HCl) 4 Mg Tablet, 4 MG PO HS, (Reported) Entered as Reported by: KASSIDY GARCIA on 08/31/20919 Review of Systems Review of Systems Constitutional: No chills; dizziness; No fever EENTM: No blurred vision, No vision loss Respiratory: No cough, No short of breath Cardiovascular: No chest pain, No palpitations Gastrointestinal: abdominal pain (epigastric); No constipation, No diarrhea, No hematemesis; heartburn, nausea; No vomiting Genitourinary: No dysuria, No frequency Musculoskeletal: No back pain, No joint pain Skin: No lesions, No lumps, No rash Psychiatric/Neurological: Headache; Denies Numbness, Denies Weakness Hematologic/Lymphatic: No Symptoms Reported Immunological/Allergic: no symptoms reported (DARIN MADDEN MED STUDENT) Past Ymxscvx-Ozjebh-Mpruln Hx Patient Social History Tobacco Use?: No Use of E-Cig and/or Vaping dev: No Substance use?: No Alcohol Use?: No Pt feels they are or have been: No (DARIN MADDEN) Immunizations Up To Date Tetanus Booster (TDap): More than 5yrs PED Vaccines UTD: Yes First/Initial COVID19 Vaccinat: 06/19/2020 Second COVID19 Vaccination Pritesh: 07/18/2020 Third COVID19 Vaccination Date: 03/17/2021 (DARIN MADDEN STUDENT) Seasonal Allergies Seasonal Allergies: Yes (DARIN MADDEN) Past Medical History Surgery/Hospitalization HX: DIABETES, HLD, DEPRESSION, ANXIETY C-SECTIONS, HERNIA, BACK SURGERY Surgeries: Yes (CARPAL TUNNEL BILAT, BACK SURGERY, HERNIA REPAIR) Section, Orthopedic Respiratory: No Asthma Cardiac: Yes (HX OF DVT) Chronic Edema/Swelling, High Cholesterol, Hypertension Neurological: Yes (HX OF SEIZURE WITH PRE-ECLAMPSIA) Headaches /Migraines, Seizure Disorder Reproductive Disorders: No Sexually Transmitted Disease: No HIV/AIDS: No Genitourinary: Yes UTI-Chronic Gastrointestinal: No Abdominal Hernia, Gastroesophageal Reflux, Irritable Bowel Musculoskeletal: Yes (BULDING DISK) Arthritis, Chronic Back Pain Endocrine: Yes Diabetes, Insulin dep, Diabetes, Non-Insulin dep HEENT: No Cancer: No Psychosocial: Yes Anxiety, Bipolar, Depression Integumentary: No Blood Disorders: Yes (HX OF IRON DEFICIENCY) Adverse Reaction/Blood Tranf: No (DARIN MADDEN) Family Medical History Alcoholism 19 FATHER Arthritis 19 MOTHER Cataracts 19 MOTHER Diabetes mellitus 19 FATHER 19 MOTHER FH: stroke 19 FATHER Hypercholesterolemia 19 MOTHER Hypertension 19 MOTHER No Family History of: Cardiovascular disease Glaucoma Osteoporosis Prostate cancer No Pertinent Family Hx (DARIN MADDEN STUDENT) Physical Exam Vital Signs Vital Signs - First Documented 12/18/21 13:00 Pulse 101 Resp 11 B/P (MAP) 148/77 (100) Pulse Ox 100 O2 Delivery Room Air (ECHO BARGER MD) Vital Signs Capillary Refill : Less Than 3 Seconds (DARIN MADDEN MED STUDENT) Height, Weight, BMI Height: 5'2.00" Weight: 179lbs. 0oz. 81.864088hs; 40.00 BMI Method:Stated General Appearance: No Apparent Distress, WD/WN HEENT: PERRL/EOMI Neck: Full Range of Motion, Normal Inspection Respiratory: Chest Non Tender, Lungs Clear Cardiovascular: Regular Rate, Rhythm, No Murmur Gastrointestinal: Normal Bowel Sounds, Tenderness (epigastric and sternal tenderness to palpation) Extremity: Normal Inspection, Pedal Edema (mild pitting edema) Neurologic/Psychiatric: Alert, Oriented x3, No Motor/Sensory Deficits, Normal Mood/Affect Skin: Normal Color, Warm/Dry Lymphatic: No Adenopathy (DARIN MADDEN MED STUDENT) Progress/Results/Core Measures Suspected Sepsis SIRS Temperature: Pulse: 101 Respiratory Rate: 11 Laboratory Tests 12/18/21 13:05: White Blood Count 10.2 Blood Pressure 148 /77 Mean: 100 Laboratory Tests 12/18/21 13:05: Creatinine 0.66, INR Comment 1.0, Platelet Count 328, Total Bilirubin 0.4 (DARIN MADDEN MED STUDENT) Results/Orders Lab Results Laboratory Tests Test 12/18/21 13:05 12/18/21 13:13 Range/Units White Blood Count 10.2 4.3-11.0 10^3/uL Red Blood Count 5.24 H 3.80-5.11 10^6/uL Hemoglobin 14.2 11.5-16.0 g/dL Hematocrit 43 35-52 % Mean Corpuscular Volume 83 80-99 fL Mean Corpuscular Hemoglobin 27 25-34 pg Mean Corpuscular Hemoglobin Concent 33 32-36 g/dL Red Cell Distribution Width 13.3 10.0-14.5 % Platelet Count 328 130-400 10^3/uL Mean Platelet Volume 10.2 9.0-12.2 fL Immature Granulocyte % (Auto) 0 % Neutrophils (%) (Auto) 64 42-75 % Lymphocytes (%) (Auto) 29 12-44 % Monocytes (%) (Auto) 6 0-12 % Eosinophils (%) (Auto) 1 0-10 % Basophils (%) (Auto) 1 0-10 % Neutrophils # (Auto) 6.5 1.8-7.8 10^3/uL Lymphocytes # (Auto) 2.9 1.0-4.0 10^3/uL Monocytes # (Auto) 0.6 0.0-1.0 10^3/uL Eosinophils # (Auto) 0.1 0.0-0.3 10^3/uL Basophils # (Auto) 0.1 0.0-0.1 10^3/uL Immature Granulocyte # (Auto) 0.0 0.0-0.1 10^3/uL Prothrombin Time 13.4 12.2-14.7 SEC INR Comment 1.0 0.8-1.4 Activated Partial Thromboplast Time 24 24-35 SEC Sodium Level 142 135-145 MMOL/L Potassium Level 3.7 3.6-5.0 MMOL/L Chloride Level 103 98-107 MMOL/L Carbon Dioxide Level 22 21-32 MMOL/L Anion Gap 17 H 5-14 MMOL/L Blood Urea Nitrogen 8 7-18 MG/DL Creatinine 0.66 0.60-1.30 MG/DL Estimat Glomerular Filtration Rate 108 BUN/Creatinine Ratio 12 Glucose Level 224 H 70-105 MG/DL Calcium Level 10.1 8.5-10.1 MG/DL Corrected Calcium 9.9 8.5-10.1 MG/DL Magnesium Level 1.4 L 1.6-2.4 MG/DL Total Bilirubin 0.4 0.1-1.0 MG/DL Aspartate Amino Transf (AST/SGOT) 15 5-34 U/L Alanine Aminotransferase (ALT/SGPT) 16 0-55 U/L Alkaline Phosphatase 78 40-136 U/L Myoglobin 17.7 10.0-92.0 NG/ML Troponin I < 0.028 <0.028 NG/ML Total Protein 8.3 H 6.4-8.2 GM/DL Albumin 4.2 3.2-4.5 GM/DL Glucometer 205 H 70-110 MG/DL (ECHO BARGER MD) My Orders Orders - ECHO BARGER MD Ekg Tracing (12/18/21 13:05) Cbc With Automated Diff (12/18/21 13:32) Magnesium (12/18/21 13:32) Chest 1 View, Ap/Pa Only (12/18/21 13:32) Comprehensive Metabolic Panel (12/18/21 13:32) Myoglobin Serum (12/18/21 13:32) Protime With Inr (12/18/21 13:32) Partial Thromboplastin Time (12/18/21 13:32) O2 (12/18/21 13:32) Monitor-Rhythm Ecg Trace Only (12/18/21 13:32) Ed Iv/Invasive Line Start (12/18/21 13:32) Troponin I Javad (12/18/21 13:32) Sucralfate Tablet (Carafate Tablet) (12/18/21 13:45) Lidocaine 2% Viscous 15 Ml (Xylocaine Vi (12/18/21 13:45) Antacid Suspension (Mylanta Suspension (12/18/21 13:45) (ECHO BARGER MD) Medications Given in ED Current Medications Medications Dose Ordered Sig/Ernesto Route Start Time Stop Time Status Last Admin Dose Admin Al Hydrox/Mg Hydrox/Simethicone 30 ml ONCE ONCE PO 12/18/21 13:45 12/18/21 13:46 DC 12/18/21 13:58 30 ML Lidocaine HCl 5 ml ONCE ONCE PO 12/18/21 13:45 12/18/21 13:46 DC 12/18/21 14:01 5 ML Sucralfate 1 gm ONCE ONCE PO 12/18/21 13:45 12/18/21 13:46 DC 12/18/21 13:58 1 GM (ECHO BARGER MD) Vital Signs/I&O 12/18/21 13:00 Pulse 101 Resp 11 B/P (MAP) 148/77 (100) Pulse Ox 100 O2 Delivery Room Air (ECHO BARGER MD) Vital Signs/I&O Capillary Refill : Less Than 3 Seconds (DARIN MADDEN MED STUDENT) 2 Blood Pressure Mean: 100 Point of Care Testing Finger Stick Blood Glucose: 205 Blood Glucose Action Taken: rn notified (DARIN MADDEN MED STUDENT) Progress Note : Time: 14:31 Progress Note Patient seen and evaluated by me, 46-year-old female who appears older than stated age with a chief complaint of epigastric/lower chest discomfort. Chronic but she states "worse today". She has been off of her Protonix for an extended amount of time, taking her Carafate. Currently being worked up at [facility] for gallbladder disease. Scheduled for a HIDA scan on 25 December. No fevers, chills, productive cough. Mild nausea today. No diarrhea, black or bloody stools. No hematemesis. Recently within the last 6 weeks underwent EGD and colonoscopy, underwent polypectomy as well as biopsy in the stomach lining which showed evidence of antral ulcer. No history of coronary artery disease. She is a diabetic. Cardiac evaluation today is unremarkable. EKG appears similar to 1 from a year ago. No evidence of ST segment elevation or depression or ectopy. Cardiac enzymes are negative. Rest of her labs are normal. Chest x-ray is clear. She was treated in the emergency department with a GI cocktail. This completely alleviated her symptoms. Patient will be restarted on her Protonix. She is advised to keep all follow- ups with [facility]. She verbalized understanding. No clinical or objective findings to warrant further studies from the emergency department or admission. All questions are sought and answered (ECHO BARGER MD) ECG Initial ECG Impression Date: Dec 18, 2021 Initial ECG Impression Time: 13:03 Initial ECG Rate: 93 Initial ECG Rhythm: Normal Sinus Initial ECG Intervals: Normal Initial ECG Impression: Nonspecific Changes (ECHO BARGER MD) Diagnostic Imaging Diagonstic Imaging: Xray Comments [facility], [place] NAME: CT SLOAN [facility] REC#: [id number] PT STATUS: REG ER : 1975 PHYSICIAN: ECHO BARGER MD ADMIT DATE: 12/18/21/ER Draft Date of Exam:12/18/21 CHEST 1 VIEW, AP/PA ONLY PATIENT HISTORY: Chest pain. TECHNIQUE: Single frontal view of the chest. COMPARISON: 11/14/2021. FINDINGS: The lung volumes are normal. No focal consolidation is seen. No large pleural effusion or pneumothorax is seen. The cardiomediastinal silhouette is normal in size and contour. No acute osseous abnormality is seen. IMPRESSION: No acute pulmonary abnormality seen. Dictated on workstation # [id number] Dict: 12/18/21 1401 Trans: 12/18/21 1405 [id number] Interpreted by: ROMULO PETERSON MD Electronically signed by: (ECHO BARGER MD) Departure Impression Primary Impression: Gastroesophageal reflux disease Qualified Codes: K21.9 - Gastro-esophageal reflux disease without esophagitis Additional Impression: Abdominal pain Qualified Codes: R10.13 - Epigastric pain Disposition: 01 HOME, SELF-CARE Condition: Improved Departure-Patient Inst. Decision time for Depature: 14:34 (ECHO BARGER MD) Referrals: [facility] (PCP/Family) Primary Care Physician Patient Instructions: Acid Reflux and Gastroesophageal Reflux Disease in Adults Add. Discharge Instructions: We will send a prescription for protonix to the pharmacy. This medication will help with your symptoms of acid reflux. Continue your carafate. Drink plenty of water to stay well hydrated. Eat small meals throughout the day instead of one big meal. Return to the ER if you have chest pain or shortness of breath. Be sure to go to your HIDA scan on 12/25 to finish the workup on your gallbladder. Avoid spicy or fatty meals to prevent acid reflux and abdominal pain. Avoid ibuprofen or other NSAIDs as these can make your symptoms worse. Take tylenol for pain. Scripts Pantoprazole Sodium (Protonix) 40 Mg Tablet.dr 40 MG PO DAILY for 30 Days, #30 TAB Prov: ECHO BARGER MD 12/18/21 Verification and Attestation of Medical Student E/M Service A medical student performed and documented this service in my presence. I reviewed and verified all information documented by the medical student and made modifications to such information, when appropriate. I personally performed the physical exam and medical decision making. Echo Barger, Dec 18, 2021,14:34 (ECHO BARGER MD) Copy Copies To 1: LUCIANO WILLARD MADISON A MED STUDENT Dec 18, 2021 13:49 ECHO BARGER MD Dec 18, 2021 14:36
[2021-12-18 13:52] LABS: MAGNESIUM 1.4 MG/DL (1.6-2.4)
--- NOTE | 2021-12-18 14:05 | Diagnostic Imaging Report ---
PATIENT HISTORY: Chest pain. TECHNIQUE: Single frontal view of the chest. COMPARISON: 11/14/2021. FINDINGS: The lung volumes are normal. No focal consolidation is seen. No large pleural effusion or pneumothorax is seen. The cardiomediastinal silhouette is normal in size and contour. No acute osseous abnormality is seen. IMPRESSION: No acute pulmonary abnormality seen. Dictated by: Dictated on workstation # [id number]
[2021-12-18] MEDS ORDERED: PANT40TA2 PO (14:35)
[2021-12-18 14:38] VITALS: BP 129/69
== END 2021-12-18 14:45 | disposition home or self-care (01) ==
LOC: EDUNIT# 12:58 → ER 12:59
DX: K21.9 Gastro-esophageal reflux disease without esophagitis (principal); E11.9 Type 2 diabetes mellitus without complications; Z79.4 Long term (current) use of insulin; Z79.899 Other long term (current) drug therapy
CPT/HCPCS: 36415; 71045; 80053; 82947; 83735; 83874; 84484; 85025; 85610; 85730; 93005; 93041

== ENCOUNTER → 2021-12-25 | Outpatient (CLI) | payer MEDICARE, MEDICAID ==
[2021-12-25] MEDS: CATHETER FLUSH 10 ML SYR IVP PRN ×3 (10:49→10:56)
--- NOTE | 2021-12-25 14:37 | Diagnostic Imaging Report ---
INDICATION: Epigastric pain. TECHNIQUE: 5.4 mCi techneitum-99m mebrofenin was utilized IV. Fatty meal with 8 ounces of Ensure. FINDINGS: There is prompt uptake of isotope by the liver with visualization of the gallbladder. There is free flow into the small bowel. Following fatty meal, one-hour imaging shows the ejection fraction to be 11%. IMPRESSION: Cystic and common bile duct are patent, though the gallbladder appears hypokinetic with fatty meal. Patient did not report symptoms following fatty meal. Dictated by: Dictated on workstation # [id number]
== END ==
LOC: CARD 12:00
PROVIDERS: ATTEND Surgery
DX: R10.13 Epigastric pain (principal)
CPT/HCPCS: 78227; A9537

== ENCOUNTER → 2022-01-08 | Outpatient (CLI) | payer MEDICARE, MEDICAID ==
[~2022-01-08] VITALS: Ht 152.7 cm; Wt 92.2 kg
== END | disposition home or self-care (01) ==
LOC: PREOP 05:32
PROVIDERS: ATTEND Surgery
DX: Z01.818 Encounter for other preprocedural examination (principal)

== ENCOUNTER 2022-01-15 09:38 | Day surgery (SDC) | payer MEDICARE, MEDICAID ==
[2022-01-15] VITALS (12 sets, daily range): BP systolic 96–143; BP diastolic 39–68
[~2022-01-15] VITALS: Ht 157.4 cm; Wt 92.5 kg
[2022-01-15] MEDS ORDERED: ceFAZolin INJECTION 2,000 MG in NS (IVPB) 50 ML IV ONE (10:00)
[2022-01-15] MEDS ORDERED: LIDOCAINE/EPI 1%-1:100,000 (XYLOCAINE) 10 ML ONE (10:00)
[2022-01-15] MEDS ORDERED: ROCURONIUM 10 MG/ML 5 ML SYRINGE IV ONE (10:01)
[2022-01-15] MEDS ORDERED: ONDANSETRON 4 MG/2 ML (SDV) Z0FRAN ONE (10:01)
[2022-01-15] MEDS ORDERED: proPOfol 200 MG/20 ML (DIPRIVAN) VIAL IV ONE (10:01)
[2022-01-15] MEDS ORDERED: LIDOCAINE PF 2% 5 ML (XYLOCAINE) VIAL ONE (10:01)
[2022-01-15] MEDS ORDERED: fentaNYL INJ 100 MCG/2 ML AMP ONE (10:01)
[2022-01-15] MEDS ORDERED: MIDAZOLAM 2 MG/2 ML (VERSED) VIAL ONE (10:02)
[2022-01-15] MEDS: LACTATED RINGERS 1,000 ML IV PRN ×2 (10:07→12:56)
--- NOTE | 2022-01-15 12:19 | Progress Note-Pre Operative ---
Pre-Operative Progress Note Date of Available H&P: Jan 05, 2022 Date H&P Reviewed: Jan 15, 2022 Time H&P Reviewed: 12:18 History & Physical: H&P Reviewed, Patient Examed, No changes noted Pre-Operative Diagnosis: BILIARY DYSKINESIA SONJA HENDERSON DO Jan 15, 2022 12:19
[2022-01-15] MEDS ORDERED: LIDOCAINE/EPI 1%-1:100,000 (XYLOCAINE) 10 ML INJ ONE (12:51)
[2022-01-15] MEDS ORDERED: SEVOFLURANE (ULTANE) 15 ML INHAL SOLN ONE (13:48)
--- NOTE | 2022-01-15 13:59 | Progress Note-Post Operative ---
Post-Operative Progess Note Surgeon (s)/Technology Applications Teacher (s) Surgeon SONJA HENDERSON DO Technology Applications Teacher: Dr. Greco to assist in retraction dissection and closure. Pre-Operative Diagnosis BILIARY DYSKINESIA Post-Operative Diagnosis same Procedure & Operative Findings Date of Procedure 01/15/22 Procedure Performed/Findings lap cristina c ioc Anesthesia Type general Estimated Blood Loss Estimated blood loss (mL): minimal Specimens/Packing Specimens Removed gallbladder SONJA HENDERSON DO Jan 15, 2022 13:59
[2022-01-15] MEDS ORDERED: ACHD5005 PO (14:01)
[2022-01-15] MEDS ORDERED: DOCU-143 PO (14:01)
--- NOTE | 2022-01-15 14:01 | Anesthesia-General Post-Op ---
General Patient Condition Mental Status/LOC: Same as Preop Cardiovascular: Satisfactory Nausea/Vomiting: Absent Respiratory: Satisfactory Pain: Controlled Complications: Absent Post Op Complications Complications None Follow Up Care/Instructions Patient Instructions None needed. Anesthesia/Patient Condition Patient Condition Patient is doing well, no complaints, stable vital signs, no apparent adverse anesthesia problems. No complications reported per nursing. TERESO LAWLER CRNA Jan 15, 2022 14:01
--- NOTE | 2022-01-15 14:03 | Discharge Inst-Simple/Standard ---
Discharge Inst-Standard Discharge Medications New, Converted or Re-Newed RX: Transmitted to Pharmacy Patient Instructions/Follow Up Plan of Care/Instructions/FU: 2 weeks Choco Activity as Tolerated: No Discharge Diet: Regular Diet Other Inst to Patient Follow up Appt: Make appointment for 2 weeks. Instructions: No lifting greater than 10 pounds. No strenuous activity. May shower in 24 hours, no tub bath or soaking. Use incentive spirometer at home as directed. No Smoking Skin/Wound Care: You have bandages over incision, remove in 24 hours and then remove and change daily if needed. Symptoms to Report: Appetite Changes, Extremity Discoloration, Numbness/Tingling, Swelling Increased, Bleeding Excessive, Eyesight Changes, Pain Increased, Urine Color Change, Constipation(Persistent), Fever over 101 degree F, Pain/Pressure in chest, Urinating Difficulty, Cough Up/Vomit Blood, Heart Beat Irreg/Pounding, Pain/Pressure in jaw, Vaginal Bleeding Increase, Cramps in feet or legs, Lightheadedness, Pain/Pressure in shoulder, Diarrhea(Persistent), Memory Changes Suddenly, Questions/Concerns, Weight gain consecutive days, Dizziness/Fainting, Nausea/Vomiting, Shortness of Breath, Weight gain over 2 pounds. If eyes or skin turn yellow notify physician. If questions or concerns contact your physician Or seek help at emergency department. SONJA HENDERSON DO Jan 15, 2022 14:03
[2022-01-15] MEDS ORDERED: morphine INJ 10 MG/ML 1ML (SYR OR VIAL) ONE (14:11)
[2022-01-15] MEDS ORDERED: HYDROmorphone 2 MG/ML VIAL (DILAUDID) IV ONE (14:15)
[2022-01-15] MEDS ORDERED: morphine INJ 10 MG/ML 1ML (SYR OR VIAL) IVP ONE (14:15)
[2022-01-15] MEDS ORDERED: ONDANSETRON 4 MG/2 ML (SDV) Z0FRAN IVP PRN (14:15)
[2022-01-15] MEDS ORDERED: fentaNYL INJ 100 MCG/2 ML AMP IVP ONE (14:15)
--- NOTE | 2022-01-15 17:30 | Diagnostic Imaging Report ---
INDICATION: Cholecystectomy Operative cholangiogram performed in the routine fashion. 22.1 seconds of fluoroscopy time was used, a total of 141 images are obtained. Contrast injection shows some extravasation at the injection site. The biliary tree is nondilated. There is contrast passing to the duodenum without obstruction. A small amount of contrast refluxes into the pancreatic duct. IMPRESSION: There is no evidence of common duct stone or biliary dilatation. Contrast reaches the duodenum without obstruction. There is some extravasation of contrast at the injection site. Dictated by: Dictated on workstation # [id number]
--- NOTE | 2022-01-16 04:17 | OPERATIVE REPORT ---
DATE OF SERVICE: 01/15/2022 PREOPERATIVE DIAGNOSIS: Biliary dyskinesia. POSTOPERATIVE DIAGNOSIS: Biliary dyskinesia. PROCEDURE: Laparoscopic cholecystectomy with intraoperative cholangiogram. SURGEON: Sonja Wilhelm DO. BELT LOOP MAKER: Dr. Greco, assisted in retraction, dissection and closure. ANESTHESIA: General. ESTIMATED BLOOD LOSS: Minimal. COMPLICATIONS: None. INDICATIONS: The patient is a 46-year-old female needing cholecystectomy for biliary dyskinesia. She understands risks and benefits and consent was signed in chart. DESCRIPTION OF PROCEDURE: The patient was taken to the operating suite. She was prepped and draped in sterile fashion. Timeout was performed. Local anesthetic was infiltrated just above the umbilicus. Skin incision was made and cautery used to dissect down through subcutaneous tissues to the fascia, which encountered fascia and mesh and could not be entered to this area. Therefore, we moved to the left upper quadrant of the abdomen. Local anesthetic was infiltrated and scalpel was used to make a small skin incision. Cautery used to dissect down to the subcutaneous tissues. The fascia was then divided. The muscle was divided and the posterior fascia was divided and the abdomen was then entered. The luna trocar was inserted and pneumoperitoneum was achieved. Scope was inserted, had multiple adhesions stuck to the abdominal wall at the midline. We were able to two 5 mm trocars in the right upper quadrant, which were used to start taking down adhesions and then, a 5 mm trocar was placed in the subxiphoid region. The gallbladder was grasped, elevated, multiple adhesions to the gallbladder. These were then taken down with both blunt and cautery dissection. The cystic duct and cystic artery were then dissected out. Clips were then placed on the proximal and distal portion of the cystic duct and cystic artery. Clip was placed on distal portion of the cystic duct. The duct was then partially transected and Arrow catheter was inserted and had to use a clip to hold it in place for cholangiogram. Cholangiogram was then performed defects visualized and contrast made its way into the duodenum. Clips to catheter in place were removed. Then, the catheter was removed. Clips were placed on the proximal portion of the cystic duct. The duct was then transected along with the artery. Hook cautery was used to dissect the gallbladder from the gallbladder fossa. There was a posterior branch of the cystic artery, which clips were placed and this was divided. Hook cautery was used to remove the remainder of the gallbladder from the gallbladder fossa achieving hemostasis. It was placed in the Endobag and removed through the 12 mm trocar site. The abdomen was then desufflated. The trocars were removed. The fascia was then closed using 0 Vicryl on the 12 mm trocar site. Skin incisions were then closed with serge. The abdomen was washed and dried and bandages were applied. The patient tolerated the procedure well without any complications. She was taken to recovery room in stable condition. Job ID: [id number] DocumentID: [id number] Dictated Date: 01/16/2022 00:01:07 Renewable Energy Trader Date: 01/16/2022 04:17:42 Dictated By: SONJA WILHELM DO
== END 2022-01-15 15:54 | disposition home or self-care (01) ==
LOC: SDC 09:38
PROVIDERS: ATTEND Surgery
DX: K81.1 Chronic cholecystitis (principal); K82.8 Other specified diseases of gallbladder; K66.0 Peritoneal adhesions (postprocedural) (postinfection); E11.9 Type 2 diabetes mellitus without complications; Z79.4 Long term (current) use of insulin; Z79.899 Other long term (current) drug therapy; Z98.890 Other specified postprocedural states; I10 Essential (primary) hypertension; R07.89 Other chest pain; R06.02 Shortness of breath; E78.5 Hyperlipidemia, unspecified; E66.9 Obesity, unspecified; Z68.37 Body mass index [BMI] 37.0-37.9, adult
CPT/HCPCS: 76000; 84703; 87081; 88304

== ENCOUNTER → 2022-08-31 | Outpatient (CLI) | payer MEDICAID, MEDICARE ==
[~2022-08-31] MED LIST changes: +DOCU-143 PO; +LIDO15SO3 MM; -LIDO20SO23 MM
== END ==
LOC: CARD 09:15
PROVIDERS: ATTEND Nurse Practitioner Family
DX: R00.2 Palpitations (principal)
CPT/HCPCS: 93225; 93226

== ENCOUNTER 2022-10-09 09:42 | Outpatient (CLI) | payer MEDICARE, MEDICAID | END 2022-10-09 10:10 | LOC: SLEEP 09:42 | PROVIDERS: ATTEND Otolaryngology Otolaryngology/Facial Plastic Surgery | DX: G47.33 Obstructive sleep apnea (adult) (pediatric) (principal) | CPT/HCPCS: G0399 ==

== ENCOUNTER → 2022-11-10 | Day surgery (SDC) | payer MEDICARE, MEDICAID ==
[~2022-11-10] VITALS: Ht 157.5 cm; Wt 92.5 kg
[~2022-11-10] MED LIST changes: +LIDOCAINE 1% INJ 20 ML VIAL INJ ONE; +LIDOCAINE 1% INJ 20 ML VIAL ONE
[2022-11-10 08:13] VITALS: BP 141/72
--- NOTE | 2022-11-10 14:53 | OPERATIVE REPORT ---
DATE OF SERVICE: 11/10/2022 PREOPERATIVE DIAGNOSIS: Palpitations. POSTOPERATIVE DIAGNOSIS: Palpitations. PROCEDURE: Implantable loop recorder implantation. The patient is a 47-year-old lady who has been reporting palpitations. Holter monitor has not shown any significant arrhythmia. A sleep study done in September reported a fast heart rate during sleep, but the rhythm was not recorded. The heart rate was reported to be in the 200s. Implantable loop recorder implantation was carried out today after having obtained an informed consent. [facility] The left prepectoral area was prepared and draped in the usual sterile fashion. 1% lidocaine was used for local anesthesia. The tools provided with the [employer] LINQ II Device were used to make a pocket anterior to the fourth intercostal space into which the loop recorder was placed. The wound edges were closed using Dermabond and Steri-Strips. The serial number of the devices are [id number]. The patient tolerated the procedure well. Job ID: [id number] DocumentID: [id number] Dictated Date: 11/10/2022 10:07:06 Boiler Control Technician Date: 11/10/2022 14:51:00 Dictated By: BRIAN GARNER MD; GLEN; FACP; FACC;
== END ==
LOC: CATH 07:52
PROVIDERS: ATTEND Internal Medicine Cardiovascular Disease
DX: R00.2 Palpitations (principal); E11.9 Type 2 diabetes mellitus without complications; I10 Essential (primary) hypertension; E78.5 Hyperlipidemia, unspecified; E66.9 Obesity, unspecified; G47.33 Obstructive sleep apnea (adult) (pediatric); Z68.41 Body mass index [BMI] 40.0-44.9, adult; Z79.4 Long term (current) use of insulin; Z79.899 Other long term (current) drug therapy; Z79.84 Long term (current) use of oral hypoglycemic drugs
CPT/HCPCS: 33285; C1764